=== PATIENT | female | born 1960 | race American Indian/Alaskan Native ===

== ENCOUNTER 2016-10-19 06:20 | Inpatient (IN) | payer BC, OTHER ==
[~2016-10-19] VITALS: Ht 162.6 cm; Wt 77.7 kg
[~2016-10-19 06:20] MED LIST: AMITRIPTYLINE H10 MG PO; AMITRIPTYLINE H25 MG PO; AUGMENTIN 875-1 EACH PO; CEPHALEXIN500 MG PO; DOC-Q-LAX TABL1 EACH PO; GABAPENTIN300 MG PO; HYDROCODON-ACE1 EA11 PO; IBUPROFEN600 MG PO; LIDODERM700 MG TOP; LORAZEPAM1 MG PO; LOVENOX40 MG SUB-Q; MIRALAX17 GM PO; MULTIVITAMINS1 EAC7 PO; ONDANSETRON ODT8 MG PO; PERCOCET 7.5-31 EACH PO; PROBIOTIC1 EAC1 PO; STOOL SOFTENER50 MG PO; TYLENOL EXTRA500 MG PO; ULTRAM50 MG PO; VICODIN 5-3001 EACH PO; XELODA500 MG; XELODA500 MG PO; ZOFRAN4 MG PO; [UNRECOGNIZED DRUG - REMARK]
--- NOTE | 2016-10-19 11:13 | NUR ---
ADMITTED AT 1030 FROM ER, NGT IN LEFT NARE, PATENT, DRAINING GREEN DRAINAGE. COOP WITH ASSESSMENT, DEPRESSED OVER BEING BACK AT HOSP, REASSURED. HOB 30o
--- NOTE | 2016-10-19 13:53 | NUR ---
pt c/o pain, Dr Aponte notified via phone. new orders received
--- NOTE | 2016-10-19 14:08 | NUR ---
PT C/O ABD PAIN, MEDICATED WITH MORPHINE 4MG IV.
--- NOTE | 2016-10-19 15:53 | NUR ---
PT COMFORTABLE, HOB ELEVATED AT 45o, NGT IN PLACE, PATENT, DRAINING GREEN-REDDISH DRAINAGE. PT USING CHLORASEPTIC SPRAY SHE C/O SORE THROAT, REASSURED,IVF INTACT, PATENT, UP TO BRP X1, VOIDED, BACK TO BED, HAS BEEN MEDICATED 2X WITH MORPHINE AND DILAUDID EACH X1, EFFECTIVE, VISITING WITH FAMILY AT THIS TIME. NO FURTHER C/O PAIN OR N/V. SCDS IN PLACE, CONT PULSE OX IN PLACE
--- NOTE | 2016-10-19 17:21 | NUR ---
medicated with morphne 6mg iv c/o abd pain, ngt in place, patent
--- NOTE | 2016-10-19 19:15 | NUR ---
RECEIVED REPORT FROM RN JD. PATIENT HAS NO NEEDS AT THIS TIME.
--- NOTE | 2016-10-19 20:00 | NUR ---
PT RATED PAIN AT 6/10, GAVE MORPHINE IV FOR PAIN.
--- NOTE | 2016-10-19 20:23 | NUR ---
PATIENT IS RESTING IN BED WITH AT BEDSIDE. HAS NO NEEDS AT THIS TIME.
--- NOTE | 2016-10-19 21:00 | NUR ---
PATIENT HAS 5/10 PAIN AND WOULD LIKE TO TAMRA A WHILE BEFORE GETTING MORE PAIN MEDICATION. EDUCATED THE PATIENT ON PAIN CONTROL. EDUCATION ALSO PERFORMED ON THE PURPOSE OF THE NG TUBE. PATIENT WAS THANKFUL FOR EXPLANATION. NO OTHER NEEDS AT THIS TIME.
--- NOTE | 2016-10-19 21:33 | NUR ---
PATIENT STATES PAIN LEVEL OF 5/10. PAIN MEDICATION ADMINISTERED PER EMAR. NO OTHER NEEDS AT THIS TIME.
--- NOTE | 2016-10-19 22:49 | NUR ---
PATIENT STATES THAT SHE HAS 5/10 PAIN IN ABD. DENIES NEED FOR PAIN MEDICATION. NO OTHER NEEDS AT THIS TIME.
--- NOTE | 2016-10-19 23:35 | NUR ---
pt complained of 5/10 pain in abd, gave morphine for pain. pt denies nausea. gave blankets to and set him up to sleep on the sofa. no further needs. call light in reach.
--- NOTE | 2016-10-20 02:12 | NUR ---
PATIENT REPORTS 5/10 ABD PAIN. MEDICATION ADMINISTERED PER EMAR. NO OTHER NEEDS AT THIS TIME.
--- NOTE | 2016-10-20 03:13 | NUR ---
assisted pt up to bathroom, tolerated ambulating well. pt back in bed; suction, continuous pulse oximeter, scd's, and oxygen via nc all in place. pt rates pain at 3/10, states "its okay now, its just my throat that really hurts;" gave throat lozenge. pt has no further needs. lights and tv off in room. appears asleep on the sofa. call light in reach.
--- NOTE | 2016-10-20 03:35 | NUR ---
PATIENT IN BED TYPING ON PERSONAL COMPUTER. NO NEEDS AT THIS TIME.
--- NOTE | 2016-10-20 04:26 | NUR ---
PATIENT REPORTS 4/10 ABD PAIN. PAIN MEDICATION ADMINISTERED PER EMAR. NO OTHER NEEDS AT THIS TIME.
--- NOTE | 2016-10-20 04:47 | NUR ---
PATIENT HAS BEEN SLEEPING MAJORITY OF SHIFT. PATIENT'S PAIN IN ABD HAS BEEN WELL CONTROLLED WITH IV MORPHINE. NO COMPLAINTS OF NAUSEA, VSS. NO ACUTE CHANGES FROM BEGINNING OF SHIFT ASSESSMENT. INTENTIONAL ROUNDING DONE WITH ALL PATIENT'S NEEDS MET.
--- NOTE | 2016-10-20 07:14 | NUR ---
RECIEVED REPORT FROM DAY SHIFT NURSE. PT SLEEPING IN BED. CONT PULSE OX IN PLACE. 1L O2 VIA NC IN PLACE. IVF INFUSING W/O DIFFICULTY. WHITE BOARD UPDATED.
--- NOTE | 2016-10-20 08:32 | NUR ---
PT SLEEPING. PRESENT IN ROOM. MEAL TRAY AT PT'S BEDSIDE. NC IN PLACE. CALL NOVA IN REACH.
--- NOTE | 2016-10-20 09:18 | NUR ---
PT SLEEPING IN BED. NGT IN PLACE. AT BEDSIDE. CALL NOVA IN REACH.
--- NOTE | 2016-10-20 10:00 | NUR ---
PATIENT UP TO BATHROOM. IN TO ASSIST WITH BATH. ORAL CARE DONE. LINENS CHANGED. PATIENT TO CHAIR WITH LEGS ELEVATED. CALL BUTTON IN REACH. NO OTHER NEEDS AT THIS TIME.
--- NOTE | 2016-10-20 10:00 | NUR ---
PT C/O ABDOMINAL PAIN AND THROAT PAIN. ADMINISTERED PAIN MEDICINE PER APR. PT HAS CEPACOL LOZENGE AT BEDSIDE SHE HAS BEEN SUCKING ON AND OFF. DR. SAVAGE IN TO SEE PT. NOTIFIED MD PT HAS MD JEWELL WRITING ORDERS AT THIS TIME. CALL NOVA IN REACH. REFILLED WATER PITCHER. AND MOTHER AT BEDSIDE. GAMING TABLE OPERATOR IN OBTAINING VS.
--- NOTE | 2016-10-20 10:53 | NUR ---
PT C/O OF CORCORAN. STATES HER CORCORAN HAS NOT CHANGED SINCE I LAST CHECKED. ADMINISTERED PAIN MEDS PER APR. PT UP IN CHAIR, MOTHER IN ROOM. PT DENIES FURTHER NEEDS. CALL NOVA IN REACH.
--- NOTE | 2016-10-20 11:11 | NUR ---
PASTOR CAMPBELL IN TO SEE PT. PT STATES HER CORCORAN IS "MUCH BETTER." PT DENIES NEEDS AT THIS TIME. CALL NOVA IN REACH.
--- NOTE | 2016-10-20 13:15 | NUR ---
medicated with morphine 5mg iv c/o 06/23 abd pain, ngt left nare in place, patent draining brown colored drainage to intermitent wall suction, coop
--- NOTE | 2016-10-20 13:25 | NUR ---
PT C/O ABDOMINAL PAIN. JD RN IN TO ADMINISTER PAIN MEDICATION PER APR. PT ALSO C/O SORE THROAT, LOZENGE ADMINISTERED. PT DENIES FURTHER NEEDS.
--- NOTE | 2016-10-20 13:29 | NUR ---
PT SITTING IN CHAIR, MOM AT HER SIDE. THEY SEEM TO HAVE A REALLY GOOD, STRONG RELATIONSHIP, MOM OFTEN WITH PT DURING CHEMO TREATMENTS. PT BEGAN TO SHARE HOW DIFFICULT THIS IS. I ENCOURAGED HER TO NOT LOOK TOO FAR DOWN THE ROAD, LET'S JUST DEAL WITH WHAT COMES TODAY. PT REQUESTED PRAYER, THANKED ME-SAID SHE FELT BETTER. HOPING TO NOT HAVE SURGERY, WILL CROSS THAT WHEN AND IF THE TIME COMES
[2016-10-20] MEDS ORDERED: HYDROCODON-ACE1 EAC8 PO (13:44)
--- NOTE | 2016-10-20 14:00 | NUR ---
PT AMBULATED TO BATHROOM WITH ASSIST. VOIDED. NGT LEAKING, REPOSITIONED AND SECURED TO CLEAN GOWN. PT BACK TO BED. PAIN LEVEL TOLERABLE. IVF INFUSING. SCDS IN USE. PT DENIES FURTHER NEEDS. VISITORS IN TO SEE PT. CALL NOVA IN REACH.
--- NOTE | 2016-10-20 14:59 | NUR ---
MARINA, [facility] NURSE CALLED TO CHECK ON PT. UPDATE GIVEN, STATES SHE WILL CHECK BACK TOMORROW.
--- NOTE | 2016-10-20 15:05 | NUR ---
PT RESTING IN BED. FAMILY/FRIENDS IN ROOM. PT DENIES NEEDS AT THIS TIME. CALL NOVA IN REACH.
--- NOTE | 2016-10-20 16:34 | NUR ---
FRESH ICE WATER GIVEN. IN WITH PATIENT.
--- NOTE | 2016-10-20 16:55 | NUR ---
PT C/O ABD PAIN AND CORCORAN. ADMINISTERED MORPHINE PER MAR TO TREAT ABD PAIN. PT REFUSES TYLENOL SUPP. AND IS UNABLE TO HAVE TORADOL 1844. PT STATES SHE WILL WAIT 1844 TO RECIEVE TORADOL.
--- NOTE | 2016-10-20 18:26 | NUR ---
PATIENT UP TO BATHROOM. AMBULATED IN HALLWAY. BACK IN BED WITH CALL BUTTON IN REACH. SCDS. WARM BLANKET. NO OTHER NEEDS AT THIS TIME.
--- NOTE | 2016-10-20 18:30 | NUR ---
PT STILL HAVING ABD PAIN (EPIGASTRIC AREA). STATES SHE IS UNSURE IF SHE HAS PASSED GAS. PT AMBULATING THE HALLWAYS THIS EVENING. PLAN FOR XRAY TOMORROW MORNING. POSSIBLE SBFT TOMORROW IF NO POSITIVE RESULTS TONIGHT.
--- NOTE | 2016-10-20 19:00 | NUR ---
PT C/O CORCORAN AND ABDOMINAL PAIN. ADMINSTERED PAIN MEDS PER MAR.
--- NOTE | 2016-10-20 19:27 | NUR ---
RECEIVED REPORT FROM RN. PATIENT HAS NO NEEDS AT THIS TIME.
--- NOTE | 2016-10-20 20:20 | NUR ---
evening medications given. Patient does not have any needs at this time.
--- NOTE | 2016-10-20 21:43 | NUR ---
PATIENT REPORTS 6/10 ABD PAIN. PAIN MEDICATION ADMINISTERED PER EMAR. NO OTHER NEEDS AT THIS TIME.
--- NOTE | 2016-10-20 22:03 | NUR ---
PATIENT TAKEN TO BATHROOM, GOWN CHANGED. NO OTHER NEEDS AT THIS TIME.
--- NOTE | 2016-10-20 22:48 | NUR ---
PATIENT REPORTS 5/10 PAIN IN ABD. PATIENT STATES THAT SHE WOULD LIKE TO WAIT UNTIL MIDNIGHT FOR MORE PAIN MEDICATION AND WILL CALL BEFORE THEN IF PAIN BECOME WORSE. NO OTHER NEEDS AT THIS TIME.
--- NOTE | 2016-10-21 00:16 | NUR ---
PATIENT REPORTS 5/1 ABD PAIN AND SORE THROAT. PAIN MEDICATION ADMINISTERED PER EMAR. NO OTHER NEEDS AT THIS TIME .
--- NOTE | 2016-10-21 02:21 | NUR ---
PATIENT RESTING CURRENTLY.
--- NOTE | 2016-10-21 03:18 | NUR ---
PATIENT REPORTED 5/10 ABD PAIN. PAIN MEDICATION ADMINISTERED PER EMAR. ASSESSMENT DONE. NO OTHER NEEDS AT THIS TIME.
--- NOTE | 2016-10-21 05:11 | NUR ---
PATIENT HAS BEEN SLEEPING THROUGHOUT SHIFT. VSS, NO COMPLAINTS OF NAUSEA. 5 MG OF MORPHINE ADMINISTERED FOR ABD PAIN Q2H. NO ACUTE CHANGES FROM BEGINNING OF SHIFT ASSESSMENT. INTENTIONAL ROUNDING DONE WITH ALL PATIENT'S NEEDS MET.
--- NOTE | 2016-10-21 06:05 | NUR ---
PATIENT HAD ORAL TEMPERATURE OF 101.3 AND BP OF 90/48. HAD PATIENT COUGH AND USE IS, UP TO BATHROOM. TEMPERATURE NOW 98.5 AND BP OF 119/58. WILL CONTINUE TO MONITOR. PATIENT HAS NO NEEDS AT THIS TIME.
--- NOTE | 2016-10-21 06:32 | NUR ---
RADIOLOGY HERE TO TAKE PATIENT FOR XRAY.
--- NOTE | 2016-10-21 06:36 | NUR ---
pt to imaging via wheelchair.
--- NOTE | 2016-10-21 07:26 | NUR ---
RECIEVED REPORT FROM DAY SHIFT NURSE. PT RESTING IN BED. PAIN AT A TOLERABLE LEVEL. DENIES CORCORAN. NGT IN PLACE LOW INT. SUCTION. IVF INFUSING W/O DIFFICULTY. PT DENIES NEEDS. CALL NOVA IN REACH.
--- NOTE | 2016-10-21 10:08 | NUR ---
pt c/o abd pain. pain meds administered per apr. Changed NGT canister. toileting offered. pt denies further needs. call celis in reach.
--- NOTE | 2016-10-21 11:29 | NUR ---
MED REC COMPLETE
--- NOTE | 2016-10-21 11:37 | NUR ---
PT UP TO BAHTROOM WITH SBA. GAIT STEADY. PT DENIES NEEDS.
--- NOTE | 2016-10-21 12:38 | NUR ---
PT IN BED. DR. SAVAGE IN TO REMOVE NGT. PT OFF O2-SAT AT 98%. PT DENIES NEEDS AT THIS TIME. PT AWARE IF SHE TOLERATES CLEAR LIQUIDS SHE WILL BE ADVACED TO FULL LIQUIDS. CALL NOVA IN REACH. AT BEDSIDE.
--- NOTE | 2016-10-21 13:33 | NUR ---
PT RESTING, FELT NEED TO NOT HAVE VISITORS TODAY. I HONORED HER REQUEST, AFTER SHE REQUESTED PRAYER. WILL FOLLOW NEEDED
--- NOTE | 2016-10-21 14:29 | NUR ---
PT RESTING IN BED. C/O PAIN IN ABD 07/24. PAIN MEDICATION ADMINISTERED. PT DENIES NAUSEA. PT WAS ABLE TO EAT A JELLO AFTER NGT WAS REMOVED, STATES SHE FEELS HER BOWELS WAKING UP. PT WOULD LIKE TO SHOWER SOON AND THEN SHE AGREES TO WALK. L MID LOBE SOUNDING COURSE THIS AFTERNOON. ENCOURAGED USE OF IS. PT DEMONSTRATED PROPER USE. CALL NOVA IN REACH.
--- NOTE | 2016-10-21 16:49 | NUR ---
PT STATES SHE IS HAVING PAIN IN HER ABD THAT FEELS LIKE PRESSURE. PT ALSO C/O CORCORAN- PAIN MEDICATION ADMINISTERED PER APR. PT STILL ON CLEAR LIQUID DIET, UNABLE TO ADVANCE DUE TO INCREASE IN PAIN. PT STATES SHE WILL AMBULATE AFTER HER PAIN MEDICATION "KICKS IN." CALL NOVA IN REACH. PT DENIES FURTHER NEEDS.
--- NOTE | 2016-10-21 17:34 | NUR ---
PT AMBULATING HALLS WITH . PT DENIES NEEDS.
--- NOTE | 2016-10-21 18:08 | NUR ---
PT HAD A GOOD DAY. NGT WAS REMOVED THIS MORNING. PT HAS BEEN TOLERATING CLEAR LIQUIDS W/O N/V. PT STILL HAVING ABDOMINAL PAIN ALONG WITH HEADACHES. STATES SHE IS PASSING FLATUS, NO BM SINCE TUESDAY. PLAN IS TO ADVANCE TO FULL LIQUIDS TONIGHT, IS SYMPTOMS WORSEN MAY NEED SBFT. PT STATES SHE DOES NOT WANT TO GO HOME TOMORROW.
--- NOTE | 2016-10-21 19:30 | NUR ---
IN TO MEET PT, REPORT RECV'D FROM BRITT GARNICA. PT AWAKE, WATCHING TV. PT STATES SHE HAS HAD A GOOD DAY. ASKS FOR PUDDING SINCE DIET HAS BEEN INCREASED TO FULL LIQUID. PUDDING GIVEN. IVF INFUSING. NO FURTHER NEEDS AT THIS TIME. CALL LIGHT IN REACH.
--- NOTE | 2016-10-21 20:22 | NUR ---
IN TO SEE PT, PM MEDICATIONS GIVEN. PT RATES PAIN A 6/10 IN ABDOMINAL, PRN MORPHINE GIVEN. PT UP TO BATHROOM WITH STNDBY ASSIST. TOLERATED WELL. PT GIVEN PUDDING, TOLERATED WELL. NO FURTHER NEEDS AT THIS TIME. CALL LIGHT IN REACH.
--- NOTE | 2016-10-21 22:57 | NUR ---
PT CALLED, UP TO BATHRROM WITH STANDBY ASSIST. PT STATES "MY PAIN IS GOOD RIGHT NOW." OFFERED PAIN MENDICATION, PT WOULD LIKE TO WAIT. PT WILL CALL WHEN READY. NO FURTHER NEEDS AT THIS TIME. CALL LIGHT IN REACH.
--- NOTE | 2016-10-22 02:05 | NUR ---
IN TO CHECK ON PT, PT APPEARS TO BE SLEEPING. NO APPARENT DISTRESS NOTED. LAPTOP OPEN ON LAP. RR EVEN AT 14 AND UNLABORED. IVF INFUSING. WATER AT BEDSIDE. CALL LIGHT IN REACH.
--- NOTE | 2016-10-22 04:11 | NUR ---
IN TO CHECK ON PT, PT APPEARS TO BE SLEEPING. NO APPARENT DISTRESS NOTED. IBF INFUSING. CALL LIGHT IN REACH.
--- NOTE | 2016-10-22 05:05 | NUR ---
PT HAS HAD UNEVENTFUL SHIFT, SLEPT WELL. MORPHINE GIVEN FOR EPIGASTRIC PAIN X1. PT ADVANCED TO FULL LIQUID DIET, TOLERATED PUDDING. DENIES NAUSEA. PT UP TO BATHROOM WITH STANDBY ASSIST, TOLERATES WELL. TEMP 99.3, IS ENCOURAGED. XR @ 0800. PT ON RA. IV D5LR @ 125 MLS/HR.
--- NOTE | 2016-10-22 06:19 | NUR ---
PT UP TO BATHROOM WITH ASSIST OF COMPUTER FORWARDING SYSTEM MARKUP CLERK, PT REQUESTING MEDICATION FOR PAIN. PRN MORPHINE AND TYLENOL GIVEN FOR 7/10 EPIGASTRIC PAIN. WHEN ENTERING THE ROOM PT IN BED TEARFUL, STATING "I AM JUST HAVING MYSELF A PITY DEMOCRAT." "IT HAS BEEN A LONG WEEK." PT STATES THAT SHE IS ANXIOUS ABOUT BEING DISCHARGED TOO EARLY AND RETURNING WITH UNRESOLVED SYMPTOMS. PT ASSURED THAT SHE IS PROGRESSING WELL AND ENCOURAGED TO DISCUSS HER FEELINGS WITH DR. SAVAGE. PT STATES SHE WILL DO SO. OFFERED ANY SORT OF COMFORT MEASURES I COULD PROVIDE AT THIS TIME. PT DECLINED. NO FURTHER NEEDS. CALL LIGHT IN REACH.
--- NOTE | 2016-10-22 09:25 | NUR ---
PT IS SITTING UP IN BED RESTING WITH CALL LIGHT IN REACH. PT WAS GIVEN WARM WASH CLOTH FOR FACE AND HANDS. PT SHOWERED YESTERDAY AND IS UNSURE IF SHE WILL SHOWER AGAIN TODAY. WILL RECHECK AGAIN LATER. PT DID NOT NEED ANYTHING AT THE MOMENT
--- NOTE | 2016-10-22 09:33 | NUR ---
PATIENT SITTING UP, NO COMPLAINTS OF PAIN WHILE RESTING. PLAN TO ADMINISTER PAIN MEDICATION WITH ACTIVITY. PATIENT IS AWAKE AND APPEARS CALM AND COMFORTBLE. REPORTS ACTIVE FLATUS. BOWEL TONES ACTIVE THROUGHOUT. VS STABLE. LUNG SOUNDS CLEAR.
--- NOTE | 2016-10-22 11:01 | NUR ---
THIS RN CALLED TO MED/SURG TO ACCESS PORT. PORT ASSESSED, WNL. PT REPORTS NO PROBLEMS WITH PORT. PORT ACCESSED PER PROTOCOL. BRISK BLOOD RETURN NOTED. PORT SAILINE LOCKED AND HAND OFF REPORT GIVEN TO MED/DECORATING INSTRUCTOR. MED/DECORATING INSTRUCTOR REMINDED TO CLEAN ALL HUBS FOR 15 SECONDS WITH ANY ACCESS. MED/DECORATING INSTRUCTOR ATTACHED FLUIDS TO INFUSE. PT EXPRESSES GRATITUDE AND HAS NO REQUESTS OR COMPLAINTS AT THIS TIME.
--- NOTE | 2016-10-22 11:12 | NUR ---
IV INFILTRATED TO RIGHT FA, PATIENT REQUEST NURSE FROM ONCOLOGY TO ACCESS PORT SECONDARY TO COMPLICATIONS IN PAST. PATIENT AGREED TO PLAN OF CARE. ACCESS WAS
--- NOTE | 2016-10-22 11:41 | NUR ---
DR. SAVAGE ROUNDED, NEW ORDERS FOR ABDOMINAL STUDY. DISCUSSED POC WITH JOSETTE ABRAHAM. PATIENT NOW NPO, BOWEL STUDY WILL BE STARTED AROUND 1300. DR. SAVAGE AND PATIENT AWARE OF POC.
--- NOTE | 2016-10-22 14:23 | NUR ---
PT IS SITTING UP IN BED WITH CALL LIGHT IN REACH. PT SAID SHE IS FEELING SICK TO STOMACH. PT ASKED FOR HOT WATER FOR TEA
--- NOTE | 2016-10-22 14:33 | NUR ---
PT SITTING UP IN BED, ALERT AND ORIENTED. MOM VISITING, AND I NOTICED THE NG TUBE GONE. SHE WAS SO EXCITED, AND FEELING MUCH BETTER-SHE LOOKED LIKE SHE WAS FEELING BETTER TOO. SLEPT WELL LAST NIGHT, IS TO START SOLID FOOD LATER TODAY. PT REQUESTED PRAYER, WILL FOLLOW NEEDED
--- NOTE | 2016-10-22 18:23 | NUR ---
PATIENT UP AMBULATING IN HALLS TODAY. SMALL BOWEL STUDY DONE, INSIGNIFICANT FINDINGS. PATIENT HAVE LOOSE DIARRHEA SINCE INGESTING CONTRAST FOR STUDY, DR. SAVAGE AWARE. NOW SL. NO NAUSEA WITH EATING. PATIENT APPEARS ANXIOUS OF GOING HOME TOMORROW. DISCUSSED DIARRHEA, AND ADVANCING DIET TO LOW FIBER. PROVIDED EDUCATION WITH LOW FIBER FOODS. PATIENT REQUESTED TO BE ABLE TO TAKE HER 10/[address], DR. SAVAGE APPROVED TO CHANGE HOWEVER PATIENT DOES NOT FEEL LIKE SHE NEEDS THEM OF NOW.
--- NOTE | 2016-10-22 18:29 | NUR ---
PT IS SITTING UP IN BED WITH ALL LIGHT IN REACH. PT IS VISITING WITH FAMILY. PT ASKED FOR THE SHOWER TO BE SET UP FOR LATER
--- NOTE | 2016-10-22 19:26 | NUR ---
RECIEVED REPORT FROM DAY SHIFT NURSE. PT RESTING COMFORTABLY IN BED, FAMILY AND FRIENDS PRESENT AT BEDSIDE. PT DENIES NEEDS. CALL NOVA IN REACH.
--- NOTE | 2016-10-22 19:30 | NUR ---
PT AMBULATING HALLWAY WITH SPOUSE.
--- NOTE | 2016-10-22 20:50 | NUR ---
PT RESTING IN BED. STATES SHE HAS PAIN IN HER ABD ABOUT 510. 1 TAB NORCO ADMINISTERED. ENCOURAGED PT TO USE CALL NOVA IF PAIN MEDICATION IS NOT EFFECTIVE IN 1 HOUR. PT DENIES FURTHER NEEDS. CALL NOVA IN REACH.
--- NOTE | 2016-10-22 22:00 | NUR ---
PT REQUESTING FOR ANOTHER PAIN PILL FOR 5/10 PAIN. IGNACIO GARNICA ADMINISTERED. DARIEL LAWSON DELIVERED. PT DENIES FURTHER NEEDS.
--- NOTE | 2016-10-22 23:45 | NUR ---
PT RESTING IN BED. UP TO BATHROOM INDEPENDENTLY. STATES SHE IS VOIDING FINE AND HAD ANOTHER BM AFTER SHE ATE HER HAM SANDWICH. DENIES NEEDS AT THIS TIME. CALL NOVA IN REACH.
--- NOTE | 2016-10-23 01:00 | NUR ---
PT RESTING IN BED. DENIES NEEDS AT THIS TIME. CALL NOVA IN REACH.
--- NOTE | 2016-10-23 03:10 | NUR ---
PT SLEEPING, CALL NOVA IN REACH.
--- NOTE | 2016-10-23 05:18 | NUR ---
PT HAD A GOOD NIGHT. BMS HAVE SLOWED DOWN. DID NOT RECIEVE IV PAIN MEDICATION. 2 TAB NORCO EFFECTIVE FOR PAIN. PT INDEPENDENT IN ROOM. VOIDING WELL. VS STABLE. LIKELY D/C TODAY.
--- NOTE | 2016-10-23 05:29 | NUR ---
PT SLEEPING, CALL NOVA IN REACH.
--- NOTE | 2016-10-23 06:31 | NUR ---
PT RESTING IN BED. WATER RESOURCE ENGINEERING SPECIALIST OBTAINING VS. NO C/O OF PAIN. CALL NOVA IN REACH.
--- NOTE | 2016-10-23 07:31 | NUR ---
PT CARE ASSUMED. PT RESTING IN BED, RATES PAIN AT 3/10 A HEADACHE, MEDICATED WITH TYLENOL. PT DENIES FURTHER NEEDS.
--- NOTE | 2016-10-23 09:36 | NUR ---
PT IS SHOWERING, LINENS HAVE BEEN CHANGED, PT DID NOT NEED ANYTHING ELSE AT THE MOMENT
--- NOTE | 2016-10-23 09:44 | NUR ---
PT RESTING IN BED, DENIES NEEDS
--- NOTE | 2016-10-23 12:41 | NUR ---
PT GIVEN DISCHARGE INSTRUCTIONS. REMOVED LOCK FROM PORT. PT ALERT AND ORIENTED AT DEPART.
--- NOTE | 2016-10-24 12:15 | HP ---
[facility] [address], [place] [address] Signed DATE OF ADMISSION: 10/19/16 REASON FOR ADMISSION: Incomplete bowel obstruction. HISTORY OF PRESENT ILLNESS This 55-year-old [place] woman who is a patient of Dr. Valeriy Carmona of [facility] as well as Dr. Epifanio Najera, oncologist. She initially was a patient of Dr. 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 She is familiar to me from the past having undergone a left subclavian Port-A-Cath placement in July of 2014. Her original resection was in 2012. Notably, she suffered a pelvic recurrence of her disease in May of 2014 undergoing JAKE-BS O, omentectomy. 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 She has ongoing therapy with Dr. Najera, who follows her progress quite closely. Notably, she underwent relatively recent CT scan of the abdomen showing no particular problem. She presented to the emergency room today after the onset of sudden epigastric pain beginning at approximately 5 in the morning. She had no associated vomiting, though she did have some nausea. She was admitted directly to my service from Dr. Campa in the emergency room with nasogastric tube placement, intravenous fluid administration, and parenteral pain medication. Currently, the patient still has some abdominal pain, but it is not severe. It is markedly improved by intravenous opiates. The nasogastric tube did drain a fair amount of clear bilious fluid that appears to have diminished in recent hours. The nasogastric tube has been somewhat uncomfortable for her, but she has had measures to improve that. 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 She is . She has grown children. She is accompanied by her mother. REVIEW OF SYSTEMS She denies any shortness of breath or chest pain. She has had no dysphagia or dysuria. She has had no blood per rectum or hematemesis, and no vomiting at this point. PHYSICAL EXAMINATION Electronically Signed By: KETURAH SAVAGE MD 10/24/16 1215 PATIENT NAME: MARIA ELENA CORBIN HISTORY AND PHYSICAL DATE OF : 62 PHYSICIAN: KETURAH SAVAGE MD REPORT #: [id number] REPORT IS CONFIDENTIAL AND NOT TO BE RELEASED WITHOUT AUTHORIZATION [facility] [address], [place] [address] Signed GENERAL: A pleasant [place]ian woman who does not look to be in severe distress. Her mother accompanies her at this time. NECK: Her trachea is midline. There is no thyromegaly, cervical adenopathy or supraclavicular adenopathy. CHEST: Clear. HEART: Regular without murmur. ABDOMEN: Not distended. There is mild tenderness in the epigastric area. The midline incision in the upper abdomen is slightly fibrous and firm. There is a possible hernia in the lower aspect of the incision. It is not tender. There is no sign of ascites. There is no focal mass. EXTREMITIES: Show no clubbing, cyanosis, or edema. LABORATORY DATA Her CBC showed a white count of 5.2, hematocrit 40.6, and platelets are 149,000. Her chem profile was essentially normal. Glucose 123, lactic acid 1.8, and bilirubin 0.5. Liver enzymes slightly elevated with alkaline phosphatase of 135, amylase 73, and lipase 5. Urinalysis was essentially normal. Specific gravity 1.021, white cells are 5 per high-powered field. IMAGING STUDIES I reviewed her CT scan with Dr. Mary, the Radiologist. This confirms an area of bowel obstruction. Given the clinical appearance, there may be a focal adhesion (or neoplasm obviously) accounting for it. There is an incisional hernia with bowel loop in the hernia with some air in it and slight dilation, but does not appear to be the focus of the obstruction, only a dilated loo p secondary to obstruction downstream. I see no evidence of ascites or carcinomatosis. There was a fair amount of amorphous change in the gallbladder bed. A chest x-ray that was performed appeared to be normal. Nasogastric tube was appropriately positioned. Subclavian central line (Port-A-Cath) appears to be normal. ASSESSMENT She has a small bowel obstruction, probably incomplete. 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 On the other hand, she may well have simply an adhesion-related obstruction. I have recommended nasogastric tube decompression, intravenous fluid resuscitation, parenteral pain control, and other measures in hopes that a conservative approach will allow for resolution of her problem. If necessary, operation certainly will be performed. We discussed all this in great detail. Electronically Signed By: KETURAH SAVAGE MD 10/24/16 7450 PATIENT NAME: MARIA ELENA CORBIN HISTORY AND PHYSICAL DATE OF : 62 PHYSICIAN: KETURAH SAVAGE MD REPORT #: [id number] REPORT IS CONFIDENTIAL AND NOT TO BE RELEASED WITHOUT AUTHORIZATION [address] [address] Signed I emphasized to her that adhesions are not particularly visible on an imaging study, only the effects of them (obstruction). She has considered all of this in the past. We will plan for abdominal plain x-ray in AM to assess for progress and resolution of the problem. She may require a contrast study to assess for resolution of the obstruction if clinically warranted or as previously described may require exploration and remedy of the obstructive process. MD HILARIO Xavier/Brisa /[id number] cc: MD Valeriy Maynard MD James Morrow, MD Electronically Signed By: KETURAH SAVAGE MD 10/24/16 1215 PATIENT NAME: MARIA ELENA CORBIN HISTORY AND PHYSICAL DATE OF : 62 PHYSICIAN: KETURAH SAVAGE MD REPORT #: [id number] REPORT IS CONFIDENTIAL AND NOT TO BE RELEASED WITHOUT AUTHORIZATION
--- NOTE | 2016-10-26 15:15 | DS ---
[facility] [address] [facility] [place], [place] [address] Signed DATE OF DISCHARGE: 10/23/16 REASON FOR ADMISSION This 54-year-old [place]i woman is a patient of Dr. Carmona, [facility] as well as Dr. Epifanio Najera, Oncologist. She initially was a patient Dr. 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 She was subsequently referred to [facility] and at some point underwent right hepatic lobectomy, this was in 2012. I placed a left subclavian Port-A-Cath device in July of 2014. 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 She has recently undergone a CT scan of the abdomen showing no particular problem. She presented to the emergency room on the day of admission with onset of sudden epigastric pain without associated vomiting, though she did have some nausea. She was evaluated by Dr. Campa in the emergency room and found to have small-bowel obstruction on CT scan related to probable adhesions in the car-od-cgrot abdomen on the right side. She had no evidence of carcinomatosis or obvious peritoneal metastases though that has been a consideration of course. She was admitted for further evaluation and care. PHYSICAL EXAMINATION GENERAL: A pleasant [place]i woman who did not look to be in severe distress. HEENT: Trachea was midline. CHEST: Clear. HEART: Regular without murmur. ABDOMEN: Nondistended and only mild tenderness in the epigastric area. The midline incision in the upper abdomen is slightly fibrous and firm. There was a possible incisional hernia in the lower aspect of the incision. CT scan confirmed this as well, but it was not the source of obstruction. LABORATORY DATA White count was 5.2, hematocrit 40.6, platelets 149,000, lactic acid 1.8. Liver enzymes showed slightly elevated alkaline phosphatase of 135, amylase 73, lipase 5. Urinalysis normal. CT scan showed an area of bowel obstruction likely related to adhesions, though neoplasm of course could have been an etiology for this. There was an incisional hernia of the bowel loop, but without this being the source of obstruction in any way. HOSPITAL COURSE She was admitted, given fluid resuscitation, and parenteral pain medication as needed. She underwent abdominal plain x-ray, which showed some improvement of the air pattern in her bowel lo ops. She had no evidence of bowel function, specifically no flatus or bowel movement. She did not have severe tenderness, only mild distention and tenderness. Continued observation was maintained where she had clinical improvement. By 10/21/2016, Electronically Signed By: KETURAH SAVAGE MD 10/26/16 1515 PATIENT NAME: MARIA ELENA CORBIN DISCHARGE SUMMARY DATE OF : 62 PHYSICIAN: KETURAH SAVAGE MD REPORT #: [id number] REPORT IS CONFIDENTIAL AND NOT TO BE RELEASED WITHOUT AUTHORIZATION [address] [address] Signed she had resolution of the bowel obstruction based on abdominal x-ray. She still had no flatus or bowel movement, however. She was begun on clear liquid diet and advanced to full liquid diet, which she tolerated. The patient was reticent about possible recurrence of her symptoms. On that basis on October 22, 2016, she underwent a 50:50 mix of barium and Gastrografin for small-bowel follow-through. This showed absolutely no impediment to flow, no evidence of intraluminal neoplasm or obstruction in any way. She was advanced to regular diet, which she tolerated well. By day of discharge, she is ambulating well and tolerating a solid diet. Has no incisional pain. No nausea, vomiting, or distention. She does have the incisional hernia though not clinically evident at this time, consideration for repair of the hernia would be made in the near future. The patient will be discharged with instructions to avoid fibrous food bolus (popcorn bingeing, peanut, etc.) and maintaining a relatively low-fiber diet for a week or so and then advance to a more regular diet. She is at increased risk of recurrent obstruction symptoms of course. It is my belief that her obstruction was related to adhesions rather than neoplasm though she is at risk of either. FOLLOWUP PLAN She is to return to see me in approximately a month. We will re-evaluate her situation and further consideration of possible incisional hernia repair. DISCHARGE MEDICATIONS She will return to her usual medications, which includes plain Tylenol 500 mg p.o. q.6 hours p.r.n. pain, stool softener DSS 50 mg p.o. b.i.d. She will resume [place] 1-2 p.o. q.4 hours p.r.n. pain (to take only when absolutely necessary). Probiotic Lactobacillus Acidophilus 2 caps p.o. daily and Lorazepam 1 mg p.o. p.r.n. nausea, anxiety, or restlessness. This can be taken every 4 hours as needed. She will have no new medications at discharge. DISCHARGE DIAGNOSES Small bowel obstruction likely related to adhesions, resolved with aggressive conservative management. History of cholangiocarcinoma of the gallbladder status post cholecystectomy (Brandon Garcia) in 2012 and subsequent right hepatectomy. Metastatic disease of cholangiocarcinoma to ovary status post total abdominal hysterectomy-bilateral salpingo oophorectomy omentectomy. Port-A-Cath (Dr. Keturah Savage). Electronically Signed By: KETURAH SAVAGE MD 10/26/16 0655 PATIENT NAME: MARIA ELENA CORBIN DISCHARGE SUMMARY DATE OF : 62 PHYSICIAN: KETURAH SAVAGE MD REPORT #: [id number] REPORT IS CONFIDENTIAL AND NOT TO BE RELEASED WITHOUT AUTHORIZATION [address] [address] Signed Keturah Savage MD JM/Modl /[id number] cc: MD Epifanio Dela Cruz MD Andrew Bower, MD Electronically Signed By: KETURAH SAVAGE MD 10/26/16 1515 PATIENT NAME: MARIA ELENA CORBIN DISCHARGE SUMMARY DATE OF : 62 PHYSICIAN: KETURAH SAVAGE MD REPORT #: [id number] REPORT IS CONFIDENTIAL AND NOT TO BE RELEASED WITHOUT AUTHORIZATION
[2017-02-25] MEDS ORDERED: MIRALAX17 GM PO (11:02)
== END 2016-10-23 12:31 | disposition home or self-care (01) | DRG 390 ==
LOC: ED 06:20 → MS 09:51
PROVIDERS: ADMIT Surgery
PROC: 0D9670Z Drainage of Stomach with Drainage Device, Via Natural or Artificial Opening (ICD-10-PCS; principal; 2016-10-19)
DX: K56.5 Intestinal adhesions [bands] with obstruction (postinfection) (principal); K43.2 Incisional hernia without obstruction or gangrene; Z85.05 Personal history of malignant neoplasm of liver; Z90.710 Acquired absence of both cervix and uterus; Z90.722 Acquired absence of ovaries, bilateral; Z85.43 Personal history of malignant neoplasm of ovary
CPT/HCPCS: 36415; 71010; 74000; 74020; 74177; 74250; 80048; 80053; 81001; 82150; 83605; 83690; 85025; 94760; 94762; 96361; 96374; 96375; 99285; J1170; J1644; J1885; J2270; J2405; J7030; J7120; Q9967

== ENCOUNTER 2017-01-31 09:01 | Day surgery (SDC) | payer BC, OTHER ==
[~2017-01-31] VITALS: Ht 162.6 cm; Wt 78.0 kg
[~2017-01-31 09:01] MED LIST changes: +HYDROCODON-ACE1 EAC8 PO
--- NOTE | 2017-01-31 13:23 | NUR ---
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
--- NOTE | 2017-01-31 13:33 | NUR ---
PT SITTING IN BED, WITH HER MOTHER PAT BY HER SIDE. PT WAS RATHER SUBDUED, AND BEGAN TO RELATE TO ME THAT HER CANCER HAD RETURNED. PT HAS FOUGHT LONG AND HARD, AND FELT SHE HAD TURNED A CORNER. LET HER VENT, REMINDED HER THAT GOD WAS WITH HER-SHE ACKNOWLEDGED. PT REQUESTED PRAYER, PT AND HER HAVE JUST ORDERED A NEW HOME, SHE WAS EXCITED ABOUT IT. WILL FOLLOW NEEDED
--- NOTE | 2017-01-31 22:26 | EKG ---
[facility] [address] [facility] [place] [address] Signed Normal sinus rhythm Normal ECG No previous ECGs available Confirmed by RADHA COWART MD ([id number]) on 01/31/2017 10:25:43 PM Electronically Signed By: RADHA COWART MD 01/31/17 2226 PATIENT NAME: MARIA ELENA CORBIN Electrocardiogram DATE OF : 62 PHYSICIAN: RADHA COWART MD REPORT #: [id number] REPORT IS CONFIDENTIAL AND NOT TO BE RELEASED WITHOUT AUTHORIZATION
--- NOTE | 2017-02-21 08:47 | OR ---
[facility] [address] [place], [place] [address] Signed DATE OF OPERATION: 01/31/2017 SURGEON: Chang Feliz MD PREOPERATIVE DIAGNOSES: 1. New-onset left hydronephrosis, likely due to distal ureteral obstruction. 2. Metastatic cholangiocarcinoma. POSTOPERATIVE DIAGNOSES: 1. New-onset left hydronephrosis, likely due to distal ureteral obstruction. 2. Metastatic cholangiocarcinoma. NAMES OF PROCEDURES: 1. Diagnostic cystoscopy with left retrograde pyelogram. 2. Insertion of left indwelling ureteral stent. ANESTHESIA: MAC. ESTIMATED BLOOD LOSS: None. COMPLICATIONS: None. SPECIMENS: None. INDICATIONS FOR PROCEDURE: Ms. Corbin is a very pleasant 56-year-old female with an unfortunate history of diffusely metastatic cholangiocarcinoma. Since her diagnosis a few years ago, she has undergone multiple surgeries, including liver resection as well as hysterectomy with bilateral oophorectomy in an attempt to keep her disease at bay. She has also undergone radiation as well as multiple cycles of chemotherapy. She was just notified last week that her cancer has returned and is present again in her liver and lymph nodes. She underwent a recent CT scan, which confirmed the presence of recurrence of her disease, but also revealed the presence of new-onset left hydroureteronephrosis that was not present in September 2016. She denies any significant left-sided flank pain, gross hematuria, or dysuria. However, her renal function has recently become compromised as her most recent GFR was around 55 or so or as her normal GFR is reportedly within normal Electronically Signed By: CHANG FELIZ MD 02/21/17 0847 PATIENT NAME: MARIA ELENA CORBIN OPERATIVE REPORT DATE OF : 62 PHYSICIAN: CHANG FELIZ MD REPORT #: [id number] REPORT IS CONFIDENTIAL AND NOT TO BE RELEASED WITHOUT AUTHORIZATION [facility] [address] [place], [place] [address] Signed limits. She presents today to undergo cystoscopy with insertion of a left ureteral stent for definitive decompression of her left collecting system. OPERATIVE FINDINGS: 1. On cystoscopy, there was no evidence of any suspicious masses, lesions, or stones within the bladder. Bilateral ureteral orifices are in their normal anatomic location. The right ureteral orifice is noted to efflux clear urine, more so than on the left side. 2. Left retrograde pyelogram was performed, which revealed hydroureteronephrosis down to the level of the distal left ureter, near the pelvic brim. I was able to easily pass the wire up through this area of obstruction distally as well as through the proximal aspect of the ureter, which had developed a short curl just prior to entrance into the left kidney. 3. A 6 x 24 cm contour double-J ureteral stent was inserted into the left ureter under direct visualization without difficulty. DESCRIPTION OF PROCEDURE: After informed consent was obtained, the patient was taken back to the operating room. [facility] to [facility] operating room table, where MAC anesthesia was induced. She was placed in the dorsal lithotomy position and the genitalia prepped and draped in standard sterile fashion. Using a 30-degree lens on a 22-Syriac introducer, rigid cystoscope was inserted through her urethra and into her bladder under direct visualization. Plain endoscopic views of the bladder were then obtained, including the lateral acevedo, floor, dome and trigone areas. Of note, the patient's urethra was dilated slightly from 16-Syriac to 24-Syriac prior to insertion of the cystoscope. Once the scope was within the bladder and after a diagnostic cystoscopy was performed, a cone-tipped catheter was advanced to the level of the left ureteral orifice and a left retrograde pyelogram was performed. Please see above findings. I removed the cone-tipped catheter and replaced with the Sensor wire. I was able to pass a Sensor wire up into the left collecting system without meeting any significant resistance. Over the wire, a 6 x 24 cm contour double-J ureteral stent was passed into the left collecting system under direct visualization without difficulty. Once I was able to confirm adequate placement of the stent, the Sensor wire was pulled and an adequate proximal coil was seen within the left renal pelvis along with an adequate distal coil within the bladder. The patient's bladder was then drained and the cystoscope was removed. The procedure was then terminated. The patient tolerated the procedure well without any complications. She will now be transferred to the postanesthesia care unit in stable condition. DISPOSITION: Ms. Corbin will be discharged to home today in stable condition when she awakens from anesthesia. I discussed the details of the procedure today with her mother and answered Electronically Signed By: CHANG FELIZ MD 02/21/17 0847 PATIENT NAME: MARIA ELENA CORBIN OPERATIVE REPORT DATE OF : 62 PHYSICIAN: CHANG FELIZ MD REPORT #: [id number] REPORT IS CONFIDENTIAL AND NOT TO BE RELEASED WITHOUT AUTHORIZATION [address] [address] Signed all of her questions. She was sent home today with Percocet 5/325, dispense #20 as needed for pain along with Cipro for a total of five days. She will be scheduled to return to clinic in approximately three months with a urine check. At that time, we will go ahead and discuss plans for her next routine stent exchange, which will happen in anywhere from 4 to 6 months from now. MD POONAM Clinton/JE /[id number] Electronically Signed By: CHANG FELIZ MD 02/21/17 0847 PATIENT NAME: MARIA ELENA CORBIN OPERATIVE REPORT DATE OF : 62 PHYSICIAN: CHANG FELIZ MD REPORT #: [id number] REPORT IS CONFIDENTIAL AND NOT TO BE RELEASED WITHOUT AUTHORIZATION
[2017-02-25] MEDS ORDERED: MIRALAX17 GM PO (11:02)
== END 2017-01-31 14:40 | disposition home or self-care (01) ==
LOC: DS 09:01
PROVIDERS: Urology
PROC: 0T9780Z Drainage of Left Ureter with Drainage Device, Via Natural or Artificial Opening Endoscopic (ICD-10-PCS; principal; 2017-01-31 13:30)
PROC: BT1FYZZ Fluoroscopy of Left Kidney, Ureter and Bladder using Other Contrast (ICD-10-PCS; 2017-01-31 13:30)
DX: N13.30 Unspecified hydronephrosis (principal); M19.90 Unspecified osteoarthritis, unspecified site; Z98.51 Tubal ligation status; Z90.89 Acquired absence of other organs; Z88.2 Allergy status to sulfonamides; Z98.890 Other specified postprocedural states; C78.89 Secondary malignant neoplasm of other digestive organs; Z79.899 Other long term (current) drug therapy
CPT/HCPCS: 00910; 74420; 90674; 93005; 93010; C2617; G0008; J0696; J1170; J2250; J2405; J2704; Q9967

== ENCOUNTER 2017-05-06 11:31 | Day surgery (SDC) | payer BC, OTHER ==
[~2017-05-06] VITALS: Ht 162.6 cm; Wt 71.7 kg
[~2017-05-06 11:31] MED LIST changes: +DULCOLAX5 MG PO; +OXYCODONE HCL E20 MG PO
[2017-05-06] MEDS ORDERED: OXYCONTIN20 MG PO (11:57)
--- NOTE | 2017-05-06 14:15 | NUR ---
05/06/17 1415 Sonia Hamilton 1403 PATIENT ARRIVES TO PACU SLEEPING, AWAKENS WITH VERBAL STIMULI, THEN BACK TO SLEEP. RESP EVEN AND UNLABORED. OXYMAS AT 4 LITERS. 1410 PATIENT SLEEPING. AWAKENS WITH VERBAL STIMULI, RATES PAIN 5/10, THEN BACK TO SLEEP. RESP EVEN AND UNLABORED, MASK OFF. 98% ON ROOM AIR. 1415 PATIENT SLEEPING. ROOM AIR 98%.
--- NOTE | 2017-05-09 09:28 | OR ---
[facility] [address] [facility] [place] [address] Signed DATE OF OPERATION: 05/06/2017 SURGEON: Chang Feliz MD PREOPERATIVE DIAGNOSES: 1. New-onset hydronephrosis in the setting of pelvic lymphadenopathy due to metastatic gallbladder cancer. 2. Worsening renal insufficiency, despite adequate stent placement. POSTOPERATIVE DIAGNOSES: 1. New-onset hydronephrosis in the setting of pelvic lymphadenopathy due to metastatic gallbladder cancer. 2. Worsening renal insufficiency, despite adequate stent placement. NAMES OF PROCEDURES: Diagnostic cystoscopy with left ureteral stent exchange. ANESTHESIA: General. ESTIMATED BLOOD LOSS: None. COMPLICATIONS: None. SPECIMENS: None. INDICATIONS FOR PROCEDURE: Aura is a very pleasant 56-year-old female with a history of metastatic gallbladder cancer, who initially presented to my clinic in late 2016, after being found to have new-onset left hydronephrosis that was incidentally noted on a routine staging CT scan. She quickly underwent cystoscopy with left ureteral stent insertion in January 2017, with anticipation that this would improve her hydronephrosis and her new-onset renal insufficiency. She recently underwent a repeat imaging that revealed an indwelling ureteral stent on the left side that was in good position. However, the hydronephrosis had not resolved. She was also found to have a continued drop in her GFR down to around 40 as well as an increase in her creatinine to about 1.3. After a long discussion with the patient, she decided to attempt an upgrade in the size of her ureteral stent to see Electronically Signed By: CHANG FELIZ MD 05/09/17 0928 PATIENT NAME: AURA CORBIN OPERATIVE REPORT DATE OF : 62 REPORT #: [id number] PHYSICIAN: CHANG FELIZ MD PCP: ASHLEY BAY MD REPORT IS CONFIDENTIAL AND NOT TO BE RELEASED WITHOUT AUTHORIZATION [facility] [address] [place] [id number] Signed if this would improve drainage of her left kidney. The most recent CT scan does reveal pelvic lymphadenopathy on that side, which is likely producing extrinsic compression upon the distal left ureter. After a review of the risks and benefits of procedure, the patient presents today to undergo cystoscopy with left ureteral stent exchange. OPERATIVE FINDINGS: 1. On cystoscopy, there was no evidence of any suspicious masses, lesions, or stones. She had an indwelling left ureteral stent, with no evidence of calcification. 2. Once the indwelling stent was removed, a new 7 x 24 cm contour double-J ureteral stent was inserted into the patient's left ureter under direct visualization without difficulty. DESCRIPTION OF PROCEDURE: After informed consent was obtained, the patient was taken back to the operating room. She was transferred from the [facility] to the operating room table, where general anesthesia was induced. She was placed in the dorsal lithotomy position and her genitalia prepped and draped in a standard sterile fashion. Using a 30-degree lens on a 21-Bruneian introducer, rigid cystoscope was inserted through the urethra and into her bladder under direct visualization. Panendoscopic views of the bladder were then obtained. Please see above findings. Attention was turned to the indwelling left ureteral stent. Using graspers, the stent was removed to the level of the urethral meatus. A Sensor wire was then inserted into the lumen of the stent and up into the left collecting system. The indwelling stent was removed, fully intact. Fluoroscopy confirmed adequate placement of the Sensor wire. Over the Sensor wire, a 7 x 24 cm contour double-J ureteral stent was inserted into the patient's left ureter under direct visualization without difficulty. Once the wire was pulled, I could appreciate an adequate proximal coil within the left renal pelvis along with an adequate distal coil in the bladder. The patient's bladder was then drained and the cystoscope was removed. The procedure was then terminated. The patient tolerated the procedure well without any complication. She will now be transferred to the Postanesthesia Care Unit in stable condition. DISPOSITION: I discussed the results of today's procedure with Aura's mother and answered all of her questions. She will be sent home today with Cipro 250 mg p.o. b.i.d. for a total of five days along with Percocet 5/325, dispense #30 as needed for pain. Her blood work will be checked in approximately one week by Dr. Najera. I have also scheduled for her to return to clinic in approximately one month with another followup BMP to see if her renal function improves with the indwelling left ureteral stent. If her renal function fails to improve, we will consider removal of the stent at that time. Electronically Signed By: CHANG FELIZ MD 05/09/17 0928 PATIENT NAME: AURA CORBNI OPERATIVE REPORT DATE OF : 62 REPORT #: [id number] PHYSICIAN: CHANG FELIZ MD PCP: ASHLEY BAY MD REPORT IS CONFIDENTIAL AND NOT TO BE RELEASED WITHOUT AUTHORIZATION [address] [address] Signed Chang Feliz MD AR/MODL /[id number] Copies: ~ Electronically Signed By: CHANG FELIZ MD 05/09/17 0928 PATIENT NAME: AURA CORBIN OPERATIVE REPORT DATE OF : 62 REPORT #: [id number] PHYSICIAN: CHANG FELIZ MD PCP: ASHLEY BAY MD REPORT IS CONFIDENTIAL AND NOT TO BE RELEASED WITHOUT AUTHORIZATION
[2017-06-17] MEDS ORDERED: MORPHINE IV (09:03)
[2017-06-17] MEDS ORDERED: DEXAMETHASONE4 MG PO (09:04)
[2017-07-01] MEDS ORDERED: DILAUDID 22 MG/1 M1 (10:21)
[2017-07-01] MEDS ORDERED: FENTANYL1 EAC3 TD (10:23)
[2017-07-22] MEDS ORDERED: DILAUDID2 MG PO (09:47)
== END 2017-05-06 15:00 | disposition home or self-care (01) ==
LOC: DS 11:31
PROVIDERS: Urology
PROC: 0TP98DZ Removal of Intraluminal Device from Ureter, Via Natural or Artificial Opening Endoscopic (ICD-10-PCS; 2017-05-06)
PROC: 0T778DZ Dilation of Left Ureter with Intraluminal Device, Via Natural or Artificial Opening Endoscopic (ICD-10-PCS; principal; 2017-05-06 13:00)
DX: N13.1 Hydronephrosis with ureteral stricture, not elsewhere classified (principal); R59.0 Localized enlarged lymph nodes; N28.9 Disorder of kidney and ureter, unspecified; M19.90 Unspecified osteoarthritis, unspecified site; M54.2 Cervicalgia; M54.9 Dorsalgia, unspecified; R10.9 Unspecified abdominal pain; K59.00 Constipation, unspecified; Z85.09 Personal history of malignant neoplasm of other digestive organs; Z92.21 Personal history of antineoplastic chemotherapy; Z98.51 Tubal ligation status; Z98.890 Other specified postprocedural states; Z90.89 Acquired absence of other organs; Z90.49 Acquired absence of other specified parts of digestive tract; Z87.891 Personal history of nicotine dependence; Z88.2 Allergy status to sulfonamides; Z79.891 Long term (current) use of opiate analgesic; Z79.899 Other long term (current) drug therapy; Z92.3 Personal history of irradiation
CPT/HCPCS: 00910; 76000; C2617; J0696; J2704; J2765; J3010; J7120

== ENCOUNTER 2017-05-19 10:58 | Emergency (ER) | payer BC, OTHER ==
[~2017-05-19] VITALS: Ht 160 cm; Wt 68.1 kg
--- OUTSIDE RECORDS SUMMARY | ~2017-05-19 | XMS | Encounter Summary ---
Demographics + + + | Address | [address] | | | [place] [address] | + + + | Home Phone [...] | Author | [facility] | | | and [place] | + + + | Organization | [facility] | | | and [place] | + + + | Address | Unknown | + + + | Phone | Unavailable | + + + Support + + + + + | Name | Relationship | Address | Phone | + + + + + | Poncho Oquendo | ECON | [address] | | | | | [place] | | | | | [address] | | + + + + + | Marta Upton | ECON | [place] | | | | | [address] | | + + + + + Care Team Providers + +------+ + | Care Assembler Dc Field Ring Name | Role | Phone | + +------+ + | Valeriy Carmona DO | PCP | | + +------+ + Encounter Details +--------+ + + + + | Date | Type | Department | Care Team | Description | +--------+ + + + + | 05/13/ | Orders Only | [facility] | Marcelina Johnson, | | | 2017 | | [facility] | RN | | | | | INFUSION [address] | | | | | | [place], | | | | | | [place] [address] | | | | | | [phone] | | | +--------+ + + + [...] + + + + | 05/20/ | Appointment | Oncology | Vladimir Robles, | | | 2017 | | | MD | | +--------+ + + + + | 05/20/ | Hospital | Infusion Therapy | Vladimir Robles, | | | 2017 | Encounter | | MD | | +--------+ + + + + | 05/27/ | Appointment | Oncology | Vladimir Robles, | | | 2017 | | | MD | | +--------+ + + + + | 05/27/ | Appointment | Infusion Therapy | Vladimir Robles, | | | 2018 | | | MD | | +--------+ + + + + as of this encounter Visit Diagnoses Not on filein this encounter"
--- OUTSIDE RECORDS SUMMARY | ~2017-05-19 | XMS | Encounter Summary ---
Demographics + + + | Address | [address] | | | [place] [address] | + + + | Home Phone [...] | Author | [facility] | | | and [place] | + + + | Organization | [facility] | | | and [place] | + + + | Address | Unknown | + + + | Phone | Unavailable | + + + Support + + + + + | Name | Relationship | Address | Phone | + + + + + | Poncho Oquendo | ECON | [address] | | | | | [place] | | | | | [address] | | + + + + + | Marta Upton | ECON | [place] | | | | | [address] | | + + + + + Care Team Providers + +------+ + | Care Monkey Trainer Name | Role | Phone | + [...] [address] [place] | | | | | [place], | [place] [address] | | | | | [place] [address] | [phone] | | | | | [phone] | | | +--------+ + + + [...]
--- OUTSIDE RECORDS SUMMARY | ~2017-05-19 | XMS | Encounter Summary ---
Demographics + + + | Address | [address] | | | [place] [address] | + + + | Home Phone [...] | Author | [facility] | | | and Eduardo[place] | + + + | Organization | [facility] | | | and Eduardoana | + + + | Address | Unknown | + + + | Phone | Unavailable | + + + Support + + + + + | Name | Relationship | Address | Phone | + + + + + | Poncho Oquendo | ECON | [address] | | | | | [place] | | | | | [address] | | + + + + + | Marta Upton | ECON | [place] | | | | | [address] | | + + + + + Care Team Providers + +------+ + | Care Cartridge Loading Operator Name | Role | Phone | + +------+ + PCP | Unavailable | + +------+ + Reason for Visit Service/Procedure (Routine) + +--------+ + + + + | Status | Reason | Specialty | Diagnoses / | Referred By | Referred To | | | | | Procedures | Contact | Contact | + +--------+ + + + + | Authorized | | Infusion | Diagnoses | | [facility] | | | | Therapy | Malignant | Reinaldo, | Infusion 401 | | | | | 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, | W Alva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 | MD [address] | [place], | | | | | (HCC) | [address] | [place] [address] | | | | | Procedures | [place], | Phone: | | | | | [place] | [place] [address] | [phone] | | | | | DIPHENHYDRAM | Phone: | Fax: | | | | | INE HCL | [phone] | [phone] | | | | | INJECTIO, 50 | Fax: | | | | | | MG MA | [phone] | | | | | | ONDANSETRON | | | | | | | HCL | | | | | | | INJECTION, 1 | | | | | | | MG MA | | | | | | | DEXAMETHASON | | | | | | | E SODIUM | | | | | | | PHOS, 1 MG | | | | | | | MA | | | | | | | FOSAPREPITAN | | | | | | | T INJECTION, | | | | | | | 1 MG MA | | | | | | | LORAZEPAM | | | | | | | INJECTION, 2 | | | | | | | MG MA | | | | | | | GEMCITABINE | | | | | | | HCL | | | | | | | INJECTION, | | | | | | | 200 MG MA | | | | | | | CISPLATIN 10 | | | | | | | MG | | | | | | | INJECTION | | | | | | | MA | | | | | | | METHYLPREDNI | | | | | | | SOLONE | | | | | | | INJECTION, | | | | | | | 125 MG MA | | | | | | | ADRENALIN | | | | | | | EPINEPHRINE | | | | | | | INJECT, .1 | | | | | | | MG MA | | | | | | | FILGASTIM | | | | | | | (ZARXIO) 300 | | | | | | | MCG/0.5ML | | | | | | | SOSY, PER 1 | | | | | | | MCG MA | | | | | | | INJECTION, | | | | | | | FAMOTIDINE, | | | | | | | 20 MG MA | | | | | | | NORMAL | | | | | | | SALINE | | | | | | | SOLUTION | | | | | | | INFUS, 500 | | | | | | | ML MA | | | | | | | NORMAL | | | | | | | SALINE | | | | | | | SOLUTION | | | | | | | INFUS, 250 | | | | | | | ML MA | | | | | | | STERILE | | | | | | | WATER/SALINE | | | | | | | , 10 ML MA | | | | | | | CHEMOTHER, | | | | | | | IV PUSH,EA | | | | | | | ADD DRUG MA | | | | | | | CHEMOTHER, | | | | | | | IV INFUSION, | | | | | | | 1 HR MA | | | | | | | CHEMOTHER, | | | | | | | IV INFUSION, | | | | | | | EA HR MA | | | | | | | CHEMOTHER,NO | | | | | | | N-HORMONE | | | | | | | ANTI-NEOPL, | | | | | | | SUB-Q/IM MA | | | | | | | CHEMOTHER | | | | | | | HORMON | | | | | | | ANTINEOPL | | | | | | | SUB-Q/IM | | | + +--------+ + + + + Encounter Details +--------+ + + + + | Date | Type | Department | Care Team | Description | +--------+ + + + + | 05/20/ | Hospital | [facility] | Vladimir Robles, | | | 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 | MED CTR CHEMO | MD | | | | | INFUSION [address] | | | | | | [place], | | | | | | [place] [address] | | | | | | [phone] | | | +--------+ + + + [...]
--- OUTSIDE RECORDS SUMMARY | ~2017-05-19 | XMS | Encounter Summary ---
Demographics + + + | Address | [address] | | | [place] [address] | + + + | Home Phone | | + + + | Preferred Language | Unknown | + + + | Marital Status | Single | + + + | Synagogue Affiliation | Unknown | + + + | Race | Unknown | + + + | Ethnic Group | Unknown | + + + Author + + + | Author | [facility] | | | and [place]ardo[place] | + + + | Organization | [facility] | | | and [place]ardo[place] | + + + | Address | Unknown | + + + | Phone | Unavailable | + + + Support + + + + + | Name | Relationship | Address | Phone | + + + + + | Poncho Oquendo | ECON | [address] | | | | | [place] | | | | | [address] | | + + + + + | Marta Upton | ECON | [place] | | | | | [address] | | + + + + + Care Team Providers + +------+ + | Care Rebar Bender Name | Role | Phone | + [...] | ONCOLOGY CLINIC [address] | [facility] | | | | | [address] [facility] | [place] [address] | | | | | [place] [address] | [phone] | | | | | [phone] | | | +--------+ + + + [...]
--- OUTSIDE RECORDS SUMMARY | ~2017-05-19 | XMS | Clinical Summary ---
Demographics + + + | Address | [address] | | | [place] [address] | + + + | Home Phone [...] Team Providers + +------+ + | Care Row Boss Hoeing Name | Role | Phone | + +------+ + | Valeriy Carmona MD | PP | Unavailable | + +------+ + Source Comments GWEN is fully live on both EpicCare Ambulatory and EpicCare InPatient.Replaced By [facility] Allergies + + + + + [...]
--- OUTSIDE RECORDS SUMMARY | ~2017-05-19 | XMS | Clinical Summary ---
Demographics + + + | Address | [address] | | | [place] [address] | + + + | Home Phone [...] | Author | [facility] | | | and Eduardoana | + + + | Organization | [facility] | | | and Eduardo[place] | + + + | Address | Unknown | + + + | Phone | Unavailable | + + + Support + + + + + | Name | Relationship | Address | Phone | + + + + + | Poncho Oquendo | ECON | [address] | | | | | [place] | | | | | [address] | | + + + + + | Marta Corbin | ECON | [place] | | | | | [address] | | + + + + + Care Team Providers + +------+ + | Care Food Processing Chemist Name | Role | Phone | [...] | | | + + +-------+---------+------+------+-------+ | acetaminophen | Take 500 mg by mouth | | | | | Activ | | (TYLENOL) 500 mg | every 4 hours as | | | | | e | | tablet | needed for | | | | | | | | Headaches. | | | | | | + + +-------+---------+------+------+-------+ | Probiotic Product | Take by mouth | | | | | Activ | | (PROBIOTIC DAILY PO) | Daily. | | | | | e | + + +-------+---------+------+------+-------+ | LORazepam (ATIVAN) | take 1 tablet [...] | | | + + +-------+---------+------+------+-------+ | | Take 1 tablet by | | | | | Activ | | HYDROcodone-acetamin | mouth every 6 hours | | | | | e | | ophen (NORCO) 10-325 | as needed for Pain. | | | | | | | mg per tablet | | | | | | | + + +-------+---------+------+------+-------+ | docusate sodium | Take 100 mg by mouth | | | | | Activ | | (STOOL SOFTENER) 100 | 2 times daily. | | | | | e | | mg capsule | | | | | | | + + +-------+---------+------+------+-------+ | ciprofloxacin | take 1 tablet by | | 0 | 01/14 | | Activ | | (CIPRO) 500 mg | mouth twice a day | | | 10/03 | | e | | tablet | | | | 17 | | | + + +-------+---------+------+------+-------+ Active [...] | | written pain management agreement/narcotic contract. [[place] | | Health and Services Provider Handbook [...] Garcia on | | 03/29/2012. Pathological specimen [id number] was analyzed by | | Liu Bowers M.D. of [facility] and was notable | | for a poorly-differentiated adenocarcinoma of the gallbladder. | | Liver biopsy was performed at the same time of the procedure and | | demonstrated portal inflammation.2. On 04/26/2012, she | | successfully underwent a R0 resection by Dr. Tai Stanton, of | | the [facility]. Pathological specimen | | [id number] was notable for the absence of any residual | | carcinoma within the gallbladder bed; however, 2/8 regional lymph | | nodes were positive for regionally metastatic disease.3. | | Consultation with Dr. Elva Grey of the [facility] | | [facility] on 05/17/2012, which returned the | [...] Dr. Miguel Henderson of the | | [facility]. 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 However, 122 of the remaining genes | | analyzed in the assay were all wild type.7. Repeat consultation | | with Dr. Elva Grey of the [facility] | | on 06/26/2014 returned the recommendation for additional | | chemotherapy with cisplatin at 75 mg/m2 on day 1 with gemcitabine | | at 1250 mg/m2 on day-1 and day-8 of the every 21-day cycle for | | 6-8 cycles. This was followed by a second opinion by Dr. Quiroz | | Jeovany of the [facility] who recommended | | chemotherapy with cisplatin [...] recommendations of Dr. Richie Thayer of the [facility] | | [place] with gemcitabine at 1000 mg/m2 on day-1 [...] 09/16/2014 at the [facility] in [place], | | [place], demonstrated stable postoperative changes involving | | [...] chest, abdomen, and pelvis at the [facility] in [place], [place], | | demonstrated stable postoperative changes [...] abdomen, and | | pelvis at the [facility] in [place], [place], on | | 06/23/2015 demonstrating postoperative changes in the right upper | | quadrant. No evidence of recurrence or any evidence of | | metastatic disease.15. Repeat CT scan of the chest, abdomen, and | | pelvis at the [facility] in [place], [place], on | | 09/24/2015 demonstrating right upper quadrant post-surgical | | changes. No evidence of recurrent neoplasm. Interval development | | of a small hernia containing bowel and fat 3 cm above the | | umbilicus.16. Repeat CT scan of the abdomen and pelvis on | | 12/22/2015 at the [facility] in [place], [place], | | demonstrating a 1.5 cm soft tissue nodule just inferior to the | | liver within the mesentery on the right. In addition, there were | | tiny nodules in the bilateral upper quadrants.17. PET CT scan at | | [facility] in [place], [place], on 12/31/2015 | | demonstrating benign findings. The nodularity along the omental | | fat along the left colon and liver tail showed no abnormal | | uptake.18. Presentation to the [facility] Emergency | | Room on 03/15/2016 with [...] | Repeat CT scan of C/A/P at [facility] on July 01, 2016 | | demonstrated [...] | | contrast, October 06, 2016, at [facility] in [facility] | | [place], demonstrated no evidence of recurrence or metastatic | | disease. Aura continued on observation without treatment.23. | | Repeat CT scan of the chest/abdomen/pelvis at [facility] demonstrated progression of disease and | [...] will see Dr. Richie Thayer at the [facility] | [facility] [place]. | + + + + + | [...] | 05/13/ | Orders Only | | Johnson, Marcelina L, | | | 2018 | | | RN | | +--------+ [...] + | Blood Pressure | 114/73 | 02/02/20171305 PST | + + + + | Pulse | 65 | 02/02/20171305 PST | + + + + | Temperature | 36.9 C (98.4 F) | 02/02/20171305 PST | + + + + | Respiratory Rate | 16 | 02/02/20171305 PST | + + + + | Oxygen Saturation | 97% | 02/02/20171305 PST | + + + + | Inhaled Oxygen | - | - | | Concentration | | | + + + + | Weight | 77.3 kg (170 lb 6.7 | 02/02/20171305 PST | | | oz) | | + + + + | Height | 162 cm (5' 3.78") | 12/17/20146 PST | + + + + | Body Mass Index | 29.45 | 02/02/2017 1306 PST | + + + + Plan of Treatment +--------+ + + + + | Date | Type | Specialty | Care Team | Description | +--------+ + + + + | 05/20/ | Appointment | | Vladimir Robles, | | | 2017 | | | MD | | +--------+ + + + + | 05/20/ | Hospital | | Vladimir Robles, | | | [...] | + + + + + Results IMAGING REPORT - EXTERNAL SCAN (04/26/2017) + + | Narrative | + + | Ordered by an unspecified provider. | + + LABS - EXTERNAL SCAN (04/25/2017) + + | Narrative | + + [...] | | | + +--------+ +--------+-------+---------+ | [facility] | [employer] | xxxxxxxxx | Indemn [...] | Self | [birth year] | Work: | [address] | | | cas/[employer] | | 1961 | [phone] | [place] [address] | | | jose alejandro | | | [address]: | | | | | | | | | | | | | | [phone] | | | | | | | [phone] | | + +--------+ +--------+ + +
[~2017-05-19 10:58] MED LIST changes: +OXYCONTIN20 MG PO
[2017-05-19] MEDS ORDERED: DILAUDID2 MG PO (15:18)
[2017-05-19] MEDS ORDERED: ONDANSETRON ODT8 MG PO (15:18)
[2017-05-19] MEDS ORDERED: PROMETHAZINE HC25 M1 PO (15:18)
[2017-06-17] MEDS ORDERED: MORPHINE IV (09:03)
[2017-06-17] MEDS ORDERED: DEXAMETHASONE4 MG PO (09:04)
[2017-07-01] MEDS ORDERED: DILAUDID 22 MG/1 M1 (10:21)
[2017-07-01] MEDS ORDERED: FENTANYL1 EAC3 TD (10:23)
[2017-07-22] MEDS ORDERED: DILAUDID2 MG PO (09:47)
== END 2017-05-19 15:59 | disposition home or self-care (01) ==
LOC: ED 10:58
DX: C23 Malignant neoplasm of gallbladder (principal); R11.2 Nausea with vomiting, unspecified; R10.13 Epigastric pain; Z88.2 Allergy status to sulfonamides; Z79.899 Other long term (current) drug therapy
CPT/HCPCS: 80053; 81001; 83690; 85025; 96374; 96375; 96376; 99283; J1170; J2405; J2550; J7030

== ENCOUNTER 2017-05-23 00:37 | Inpatient (IN) | payer BC, OTHER ==
[~2017-05-23] VITALS: Ht 160 cm; Wt 73.5 kg
--- OUTSIDE RECORDS SUMMARY | ~2017-05-23 | XMS | Encounter Summary ---
Demographics + + + | Address | [address] | | | [place] [address] | + + + | Home Phone | | + + + | Preferred Language | Unknown | + + + | Marital Status | Single | + + + | Religion Affiliation | Unknown | + + + | Race | Unknown | + + + | Ethnic Group | Unknown | + + + Author + + + | Author | [facility] | | | and Eduardoana | + + + | Organization | [facility] | | | and [place]ardo[place] | + + + | Address | Unknown | + + + | Phone | Unavailable | + + + Support + + + + + | Name | Relationship | Address | Phone | + + + + + | Poncho Oquendo | ECON | [address] | | | | | [place] | | | | | [address] | | + + + + + | Marta Upton | ECON | [place] | | | | | [address] | | + + + + + Care Team Providers + +------+ + | Care Financial Specialist Name | Role | Phone | + +------+ + | Valeriy Carmona DO | PCP | | + +------+ + Reason for Visit Evaluate & Treat (Routine) + +--------+ + + + + | Status | Reason | Specialty | Diagnoses / | Referred By | Referred To | | | | | Procedures | Contact | Contact | + +--------+ + + + + | Authorized | | Oncology | Diagnoses | [facility] | Travis, | | | | | [facility] | Medical | Vladimir Nelson MD | | | | | Q IS OUT- | Oncology | | | | | | PATIENT IS | Clinic [address] | | | | | | FROM [facility] | [address] | | | | | | LABS/PORT | [place], | | | | | | [address] | [place] | | | | | | Procedures | [address] | | | | | | [facility] | Phone: | | | | | | FOLLOW UP | [phone] | | | | | | | Fax: | | | | | | | [phone] | | + +--------+ + + + + Encounter Details +--------+ + + + + | Date | Type | Department | Care Team | Description | +--------+ + + + + | 05/20/ | Hospital | [facility] | TravisVladimir, | Gallbladder cancer, | | 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 | MED CTR MEDICAL | MD | carcinoma (HCC) | | | | ONCOLOGY CLINIC [address] | | (Primary Dx); Liver | | | | [address] [place] | | metastases (HCC); | | | | [place] [address] | | Stage 3a chronic | | | | [phone] | | kidney disease; | | | [...] tablet by | 20 | 5 | // | | | (DECADRON) 4 mg | [...] different from the original. Hematology-Oncology Progress Note [facility] Pt. Name/Age/: Aura Upton 56 y.o. 1960 CSN: [id number] Date of service: 05/20/2017 Provider: Vladimir Robles [...] adjustment of her ch emotherapy, specifically the cis-wales given her renal dysfunction. 1. Proceed with day 1, cycle 1 of dose adjusted cis-wales and gemcitabine as ordered. 2. Increase OxyContin [...] nausea, has decided to t ry palliative cis-wales/gemcitabine again to which she has responded in the past. Ended up in the emergency room yesterday in [place] with nausea and vomiting, responded to ondan [...] and 6 hour treatment, labs done in [place] ER. My chart: Medications: Current Outpatient Prescriptions [...] this chart may have been created with [employer] voice recognition software. Occasi onal wrong-word or sound-alike substitutions may have occurred due to the inherent stevenson itations of voice recognition software. Please read the chart carefully and recognize, using context, where these substitutions have occurred.in this encounter Plan of Treatment +--------+ + + + + | Date | Type | Specialty | Care Team | Description | +--------+ + + + + | 05/27/ | Appointment | Oncology | Vladimir Robles, | | | 2018 | | | MD | | +--------+ + + + + | 05/27/ | Appointment | Infusion Therapy | Vladimir Robles, | | | 2017 | | | MD | | +--------+ + + + + as of this encounter Visit Diagnoses + [...]
--- OUTSIDE RECORDS SUMMARY | ~2017-05-23 | XMS | Encounter Summary ---
Demographics + + + | Address | [address] | | | [place] [address] | + + + | Home Phone [...] | Author | [facility] | | | and Eduardo[place] | + + + | Organization | [facility] | | | and Eduardo[place] | + + + | Address | Unknown | + + + | Phone | Unavailable | + + + Support + + + + + | Name | Relationship | Address | Phone | + + + + + | Poncho Oquendo | ECON | [address] | | | | | [place] | | | | | [address] | | + + + + + | Marta Upton | ECON | [place] | | | | | [address] | | + + + + + Care Team Providers + +------+ + | Care Bobbin Loose End Finder Name | Role | Phone | + [...] | | ONCOLOGY CLINIC [address] | [facility] | | | | | [address] | [place] [address] | | | | | [place] [address] | [phone] | | | | | [phone] | | | +--------+ + + + [...] as of this encounter Plan of Treatment +--------+ + + + + | Date | Type | Specialty | Care Team | Description | +--------+ + + + + | 05/27/ | Appointment | Oncology | Vladimir Robles, | | | 2017 | | | MD | | +--------+ + + + + | 05/27/ | Appointment | Infusion Therapy | Vladimir Robles, | | | 2017 | | | MD | | +--------+ + + + + as of this encounter Visit Diagnoses Not on filein this encounter"
--- OUTSIDE RECORDS SUMMARY | ~2017-05-23 | XMS | Clinical Summary ---
Demographics + + + | Address | [address] | | | [place] [address] | + + + | Home Phone | | + + + | Preferred Language | Unknown | + + + | Marital Status | Single | + + + | Alevism Affiliation | NON | + + + [...] Providers + +------+ + | Care Assistant Food Service Manager Name | Role | Phone | + +------+ + | Valeriy Carmona MD | PP | Unavailable | + +------+ + Source Comments GWEN is fully live on both EpicCare Ambulatory and EpicCare InPatient.[facility] Allergies + + + + + [...]
--- OUTSIDE RECORDS SUMMARY | ~2017-05-23 | XMS | Encounter Summary ---
Demographics + + + | Address | [address] | | | [place] [address] | + + + | Home Phone [...] | [facility] | | | and Eduardo[place] | + + + | Organization | [facility] | | | and [place]ardo[place] | + + + | Address | Unknown | + + + | Phone | Unavailable | + + + Support + + + + + | Name | Relationship | Address | Phone | + + + + + | Poncho Oquendo | ECON | [address] | | | | | [place] | | | | | [address] | | + + + + + | Marta Upton | ECON | [place] | | | | | [address] | | + + + + + Care Team Providers + +------+ + | Care Aircrewman Name | Role | Phone | + [...] [address] [place] | | | | | [address] [place], | [place] [address] | | | | | [place] [address] | [phone] | | | | | [phone] | | | +--------+ + + + [...]
--- OUTSIDE RECORDS SUMMARY | ~2017-05-23 | XMS | Encounter Summary ---
Demographics + + + | Address | [address] | | | [place] [address] | + + + | Home Phone [...] Author | [facility] | | | and Eduardo[place] | + + + | Organization | [facility] | | | and Eduardoana | + + + | Address | Unknown | + + + | Phone | Unavailable | + + + Support + + + + + | Name | Relationship | Address | Phone | + + + + + | Poncho Oquendo | ECON | [address] | | | | | [place] | | | | | [address] | | + + + + + | Marta Upton | ECON | [place] | | | | | [address] | | + + + + + Care Team Providers + +------+ + | Care Construction Supervisor/Carpenter Name | Role | Phone | + [...] [address] [place] | | | | | [place], | [place] [address] | | | | | [place] [address] | [phone] | | | | | [phone] | | | +--------+ + + + [...]
--- OUTSIDE RECORDS SUMMARY | ~2017-05-23 | XMS | Encounter Summary ---
Demographics + + + | Address | [address] | | | [place] [address] | + + + | Home Phone | | + + + | Preferred Language | Unknown | + + + | Marital Status | Single | + + + | Buddhism Affiliation | Unknown | + + + | Race | Unknown | + + + | Ethnic Group | Unknown | + + + Author + + + | Author | [facility] | | | and Eduardo[place] | + + + | Organization | [facility] | | | and [place]ardo[place] | + + + | Address | Unknown | + + + | Phone | Unavailable | + + + Support + + + + + | Name | Relationship | Address | Phone | + + + + + | Poncho Oquendo | ECON | [address] | | | | | [place] | | | | | [address] | | + + + + + | Marta Upton | ECON | [place] | | | | | [address] | | + + + + + Care Team Providers + +------+ + | Care Resource Room Teacher Name | Role | Phone | + +------+ + | Valeriy Carmona DO | PCP | | + +------+ + Encounter Details +--------+ + + + + | Date | Type | Department | Care Team | Description | +--------+ + + + + | 05/13/ | Orders Only | [facility] | Marcelina Johnson, | | | 2017 | | MED CTR CHEMO | RN | | | | | INFUSION [address] | | | | | | [place], | | | | | | [place] [address] | | | | | | [phone] | | | +--------+ + + + [...]
--- OUTSIDE RECORDS SUMMARY | ~2017-05-23 | XMS | Clinical Summary ---
Demographics + + + | Address | [address] | | | [place] [address] | + + + | Home Phone [...] Team Providers + +------+ + | Care Alarm Mechanic Name | Role | Phone | + +------+ + | Valeriy Carmona MD | PP | Unavailable | + +------+ + Source Comments GWEN is fully live on both EpicCare Ambulatory and EpicCare InPatient.[facility] Allergies + + + + [...]
--- OUTSIDE RECORDS SUMMARY | ~2017-05-23 | XMS | Encounter Summary ---
Demographics + + + | Address | [address] | | | [place] [address] | + + + | Home Phone | | + + + | Preferred Language | Unknown | + + + | Marital Status | Single | + + + | Holiness Affiliation | Unknown | + + + | Race | Unknown | + + + | Ethnic Group | Unknown | + + + Author + + + | Author | [facility] | | | and Eduardo[place] | + + + | Organization | [facility] | | | and [place]ardo[place] | + + + | Address | Unknown | + + + | Phone | Unavailable | + + + Support + + + + + | Name | Relationship | Address | Phone | + + + + + | Poncho Oquendo | ECON | [address] | | | | | [place] | | | | | [address] | | + + + + + | Marta Upton | ECON | [place] | | | | | [address] | | + + + + + Care Team Providers + +------+ + | Care Chief Technologist Name | Role | Phone | + +------+ + | Valeriy Carmona DO | PCP | | + +------+ + Encounter Details +--------+ + + + + | Date | Type | Department | Care Team | Description | +--------+ + + + + | 05/13/ | Orders Only | [facility] | Marcelina Johnson, | | | 2017 | | MED CTR CHEMO | RN | | | | | INFUSION [address] | | | | | | [place], | | | | | | [place] [address] | | | | | | [phone] | | | +--------+ + + + [...]
--- OUTSIDE RECORDS SUMMARY | ~2017-05-23 | XMS | Encounter Summary ---
Demographics + + + | Address | [address] | | | [place] [address] | + + + | Home Phone [...] Author | [facility] | | | and Eduardoana | + + + | Organization | [facility] | | | and Eduardoana | + + + | Address | Unknown | + + + | Phone | Unavailable | + + + Support + + + + + | Name | Relationship | Address | Phone | + + + + + | Poncho Oquedno | ECON | [address] | | | | | [place] | | | | | [address] | | + + + + + | Marta Upton | ECON | [place] | | | | | [address] | | + + + + + Care Team Providers + +------+ + | Care Equalizer Operator Name | Role | Phone | [...] 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, | [place]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 | MD [address] | [place], | | | | | (HCC) | [address] | [place] [address] | | | | | Procedures | ARCADIO DASILVAA, | Phone: | | | | | [place] | [place] [address] | [phone] | | | | | DIPHENHYDRAM | Phone: | Fax: | | | | | INE HCL | [phone] | [phone] | | | | | INJECTIO, 50 | Fax: | | | | | | MG [place] | [phone] | | | | | | ONDANSETRON | | | | | | | HCL | | | | | | | INJECTION, 1 | | | | | | | MG [place] | | | | | | | DEXAMETHASON | | | | | | | E SODIUM | | | | | | | PHOS, 1 MG | | | | | | | [place] | | | | | | | FOSAPREPITAN | | | | | | | T INJECTION, | | | | | | | 1 MG [place] | | | | | | | LORAZEPAM | | | | | | | INJECTION, 2 | | | | | | | MG [place] | | | | | | | GEMCITABINE | | | | | | | HCL | | | | | | | INJECTION, | | | | | | | 200 MG [place] | | | | | | | CISPLATIN 10 | | | | | | | MG | | | | | | | INJECTION | | | | | | | [place] | | | | | | | METHYLPREDNI | | | | | | | SOLONE | | | | | | | INJECTION, | | | | | | | 125 MG [place] | | | | | | | ADRENALIN | | | | | | | EPINEPHRINE | | | | | | | INJECT, .1 | | | | | | | MG [place] | | | | | | | FILGASTIM | | | | | | | (ZARXIO) 300 | | | | | | | MCG/0.5ML | | | | | | | SOSY, PER 1 | | | | | | | MCG [place] | | | | | | | INJECTION, | | | | | | | FAMOTIDINE, | | | | | | | 20 MG [place] | | | | | | | NORMAL | | | | | | | SALINE | | | | | | | SOLUTION | | | | | | | INFUS, 500 | | | | | | | ML [place] | | | | | | | NORMAL | | | | | | | SALINE | | | | | | | SOLUTION | | | | | | | INFUS, 250 | | | | | | | ML [place] | | | | | | | STERILE | | | | | | | WATER/SALINE | | | | | | | , 10 ML [place] | | | | | | | CHEMOTHER, | | | | | | | IV PUSH,EA | | | | | | | ADD DRUG [place] | | | | | | | CHEMOTHER, | | | | | | | IV INFUSION, | | | | | | | 1 HR [place] | | | | | | | CHEMOTHER, | | | | | | | IV INFUSION, | | | | | | | EA HR [place] | | | | | | | CHEMOTHER,NO | | | | | | | N-HORMONE | | | | | | | ANTI-NEOPL, | | | | | | | SUB-Q/IM [place] | | | | | | | [...] + + | 05/20/ | Hospital | [facility] | Vladimir Robles, | Gallbladder cancer, | | 2017 | Encounter | MED CTR CHEMO | MD | carcinoma (HCC) | | | | INFUSION [address] | | | | | | [place], | | | | | | [place] [address] | | | | | | [phone] | | | +--------+ + + + [...] Progress Notes Sasha Renee RN - 05/20/2017 1323 PDTReports nausea resolved discharged in stable c ondition to follow up in [place] as scheduled.in this encounter Plan of Treatment +--------+ + [...] + + + as of this encounter Results LABS - EXTERNAL [...] | | | | | Care, Starting 05/20/17 at 0930 | | | | | [...]
--- OUTSIDE RECORDS SUMMARY | ~2017-05-23 | XMS | Encounter Summary ---
Demographics + + + | Address | [address] | | | [place] [address] | + + + | Home Phone [...] + + + | Author | [facility] | | | and Edaurdoana | + + + | Organization | [facility] | | | and Eduardoana | + + + | Address | Unknown | + + + | Phone | Unavailable | + + + Support + + + + + | Name | Relationship | Address | Phone | + + + + + | Poncho Oquendo | ECON | [address] | | | | | [place] | | | | | [address] | | + + + + + | Marta Upton | ECON | [place] | | | | | [address] | | + + + + + Care Team Providers + +------+ + | Care Cotton Classer Name | Role | Phone | + [...] | | | ONCOLOGY CLINIC [address] | [facility] | | | | | [address] [facility] | [place] [address] | | | | | [place] [address] | [phone] | | | | | [phone] | | | +--------+ + + + [...]
--- OUTSIDE RECORDS SUMMARY | ~2017-05-23 | XMS | Encounter Summary ---
Demographics + + + | Address | [address] | | | [place] [address] | + + + | Home Phone [...] [facility] | | | and Eduardoana | + + + | Organization | [facility] | | | and Eduardoana | + + + | Address | Unknown | + + + | Phone | Unavailable | + + + Support + + + + + | Name | Relationship | Address | Phone | + + + + + | Poncho Oquendo | ECON | [address] | | | | | [place] | | | | | [address] | | + + + + + | Marta Upton | ECON | [place] | | | | | [address] | | + + + + + Care Team Providers + +------+ + | Care Power Wheelchair Mechanic Name | Role | Phone | [...] [address] [place] | | | | | [place], | [place] [address] | | | | | [place] [address] | [phone] | | | | | [phone] | | | +--------+ + + + [...]
--- OUTSIDE RECORDS SUMMARY | ~2017-05-23 | XMS | Encounter Summary ---
Demographics + + + | Address | [address] | | | [place] [address] | + + + | Home Phone | | + + + | Preferred Language | Unknown | + + + | Marital Status | Single | + + + | Holiness Affiliation | Unknown | + + + | Race | Unknown | + + + | Ethnic Group | Unknown | + + + Author + + + | Author | [facility] | | | and Eduardoana | + + + | Organization | [facility] | | | and Eduardoana | + + + | Address | Unknown | + + + | Phone | Unavailable | + + + Support + + + + + | Name | Relationship | Address | Phone | + + + + + | Poncho Oquendo | ECON | [address] | | | | | [place] | | | | | [address] | | + + + + + | Marta Upton | ECON | [place] | | | | | [address] | | + + + + + Care Team Providers + +------+ + | Care Music Engineer Name | Role | Phone | + +------+ + | Valeriy Carmona DO | PCP | | + +------+ + Encounter Details +--------+ + + + + | Date | Type | Department | Care Team | Description | +--------+ + + + + | 05/13/ | Orders Only | [facility] | Marcelina Johnson, | | | 2017 | | MED CTR CHEMO | RN | | | | | INFUSION [address] | | | | | | [place], | | | | | | [place] [address] | | | | | | [phone] | | | +--------+ + + + [...]
--- OUTSIDE RECORDS SUMMARY | ~2017-05-23 | XMS | Clinical Summary ---
Demographics + + + | Address | [address] | | | [place] [address] | + + + | Home Phone | | + + + | Preferred Language | Unknown | + + + | Marital Status | Single | + + + | Uatsdin Affiliation | Unknown | + + + | Race | Unknown | + + + | Ethnic Group | Unknown | + + + Author + + + | Author | [facility] | | | and Eduardoana | + + + | Organization | [facility] | | | and Eduardoana | + + + | Address | Unknown | + + + | Phone | Unavailable | + + + Support + + + + + | Name | Relationship | Address | Phone | + + + + + | Poncho Oquendo | ECON | [address] | | | | | [place] | | | | | [address] | | + + + + + | Marta Corbin | ECON | [place] | | | | | [address] | | + + + + + Care Team Providers + +------+ + | Care Telesales Agent Name | Role | Phone | [...] | | written pain management agreement/narcotic contract. [[facility] | | Health and Services Provider Handbook [...] Garcia on | | 03/29/2012. Pathological specimen [id number] was analyzed by | | Liu Bowers M.D. of [facility] and was notable | | for a poorly-differentiated adenocarcinoma of the gallbladder. | | Liver biopsy was performed at the same time of the procedure and | | demonstrated portal inflammation.2. On 04/26/2012, she | | successfully underwent a R0 resection by Dr. Tai Stanton, of | | the [facility]. Pathological specimen | | [id number] was notable for the absence of any residual | | carcinoma within the gallbladder bed; however, 2/8 regional lymph | | nodes were positive for regionally metastatic disease.3. | | Consultation with Dr. Elva Grey of the [facility] | | [facility] on 05/17/2012, which returned the [...] Dr. Miguel Henderson of the | | [facility]. 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 However, 122 of the remaining genes | | analyzed in the assay were all wild type.7. Repeat consultation | | with Dr. Elva Grey of the [facility] | | on 06/26/2014 returned the recommendation for additional | | chemotherapy with cisplatin at 75 mg/m2 on day 1 with gemcitabine | | at 1250 mg/m2 on day-1 and day-8 of the every 21-day cycle for | | 6-8 cycles. This was followed by a second opinion by Dr. Quiroz | | Jeovany of the [facility] who recommended | | chemotherapy with cisplatin [...] recommendations of Dr. Richie Thayer of the [facility] | | [place] with gemcitabine at 1000 mg/m2 on day-1 and day-8 with | | cisplatin 25 mg/m2 on day-1 and day-8 of the every 21-day cycle, | | beginning on 07/26/2014. Chemotherapy was complicated by grade 3 | | neutropenia without fever a grade 3 thrombocytopenia without | | bleeding.10. Repeat CT scan of the abdomen and pelvis on | | 09/16/2014 at the [facility] in [facility] | | [place], demonstrated stable postoperative changes involving | | [...] the chest, abdomen, and pelvis at the [facility]. | | [facility] in [place], [place], | | demonstrated stable postoperative changes [...] abdomen, and | | pelvis at the [facility] in [place], [place], on | | 06/23/2015 demonstrating postoperative changes in the right upper | | quadrant. No evidence of recurrence or any evidence of | | metastatic disease.15. Repeat CT scan of the chest, abdomen, and | | pelvis at the [facility] in [place], [place], on | | 09/24/2015 demonstrating right upper quadrant post-surgical | | changes. No evidence of recurrent neoplasm. Interval development | | of a small hernia containing bowel and fat 3 cm above the | | umbilicus.16. Repeat CT scan of the abdomen and pelvis on | | 12/22/2015 at the [facility] in [place], [place], | | demonstrating a 1.5 cm soft tissue nodule just inferior to the | | liver within the mesentery on the right. In addition, there were | | tiny nodules in the bilateral upper quadrants.17. PET CT scan at | | [facility] in [place], [place], on 12/31/2015 | | demonstrating benign findings. The nodularity along the omental | | fat along the left colon and liver tail showed no abnormal | | uptake.18. Presentation to the [facility] | | Room on [...] | Repeat CT scan of C/A/P at [facility] on July 01, 2016 | [...] | | contrast, October 06, 2016, at [facility] in [facility] | | [place], demonstrated no evidence of recurrence or metastatic | | disease. Aura continued on observation without treatment.23. | | Repeat CT scan of the chest/abdomen/pelvis at [facility] demonstrated progression of disease and | [...] will see Dr. Richie Thayer at the [facility] | | [facility] [place]. | + + + + + | [...] 2017 | Encounter | | MD | carcinoma [...] 2017 | Encounter | | MD | carcinoma (HCC) | +--------+ + + + + | 05/19/ | Telephone | | Reinaldo, | Other [...] + + + + Plan of Treatment +--------+ + + + + | Date | Type | Specialty | Care Team | Description | +--------+ + + + + | 05/27/ | Appointment | | Vladimir Robles, | | | 2017 | | | MD | | +--------+ + + + + | 05/27/ | Appointment | | Vladimir Robles, | | | 2017 | | | MD | | +--------+ + + + + + + + [...] EXTERNAL SCAN (05/19/2017)Only the most recent of 2 results within the time period i s [...] | | | + +--------+ +--------+-------+---------+ | [facility] | IHS | xxxxxxxxx | Indemn [...] | Self | [birth year] | Work: | [address] | | | al/Jaspreet | | 1961 | [phone] | [place] [address] | | | jose alejandro | | | [address]: | | | | | | | | | | | | | | [phone] | | | | | | | [phone] | | + +--------+ +--------+ + +
--- OUTSIDE RECORDS SUMMARY | ~2017-05-23 | XMS | Encounter Summary ---
Demographics + + + | Address | [address] | | | [place] [address] | + + + | Home Phone [...] | Author | [facility] | | | and Eduardoana | + + + | Organization | [facility] | | | and Eduardoana | + + + | Address | Unknown | + + + | Phone | Unavailable | + + + Support + + + + + | Name | Relationship | Address | Phone | + + + + + | Poncho Oquendo | ECON | [address] | | | | | [place] | | | | | [address] | | + + + + + | Marta Upton | ECON | [place] | | | | | [address] | | + + + + + Care Team Providers + +------+ + | Care Hotel Administrative Assistant Name | Role | Phone | [...] | | | | | | FROM [facility]- | [address] | | | | | | LABS/PORT | [place], | | | | | | [address] | [place] | | | | | | Procedures | [address] | | | | | | [facility] | Phone: | | | | | | FOLLOW UP | [phone] | | | | | | | Fax: | | | | | | | [phone] | | + +--------+ + + + + Encounter Details +--------+ + + + + | Date | Type | Department | Care Team | Description | +--------+ + + + + | 05/20/ | Hospital | [facility] | TravisVladimir, | Gallbladder cancer, | | 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 | MED CTR MEDICAL | MD | carcinoma (HCC) | | | | ONCOLOGY CLINIC [address] | | (Primary Dx); Liver | | | | [address] [place] | | metastases (HCC); | | | | [place] [address] | | Stage 3a chronic | | | | [phone] | | kidney disease; | | | [...] from the original. Hematology-Oncology Progress Note [facility] Pt. Name/Age/: Aura Upton 56 y.o. 1960 CSN: [id number] Date of service: 05/20/2017 Provider: Vladimir Robles [...] adjustment of her ch emotherapy, specifically the cis-[place] given her renal dysfunction. 1. Proceed with day 1, cycle 1 of dose adjusted cis-[place] and gemcitabine as ordered. 2. Increase OxyContin [...] nausea, has decided to t ry palliative cis-[place]/gemcitabine again to which she has responded in the past. Ended up in the emergency room yesterday in [place] with nausea and vomiting, responded to ondan [...] and 6 hour treatment, labs done in [place] ER. My chart: Medications: Current Outpatient Prescriptions [...] this chart may have been created with [employer] voice recognition software. Occasi onal wrong-word or [...] 05/27/ | Appointment | Infusion Therapy | Bella Robleschristiano Nelson, | | | 2017 | | | [...]
--- OUTSIDE RECORDS SUMMARY | ~2017-05-23 | XMS | Encounter Summary ---
Demographics + + + | Address | [address] | | | [place] [address] | + + + | Home Phone [...] + | Author | [facility] | | | and Eduardoana | + + + | Organization | [facility] | | | and Eduardoana | + + + | Address | Unknown | + + + | Phone | Unavailable | + + + Support + + + + + | Name | Relationship | Address | Phone | + + + + + | Poncho Oquendo | ECON | [address] | | | | | [place] | | | | | [address] | | + + + + + | Marta Upton | ECON | [place] | | | | | [address] | | + + + + + Care Team Providers + +------+ + | Care Proteomics Scientist Name | Role | Phone | [...] | | | ONCOLOGY CLINIC [address] | [facility] | | | | | [address] | [place] [address] | | | | | [place] [address] | [phone] | | | | | [phone] | | | +--------+ + + + [...]
--- OUTSIDE RECORDS SUMMARY | ~2017-05-23 | XMS | Clinical Summary ---
Demographics + + + | Address | [address] | | | [place] [address] | + + + | Home Phone [...] Team Providers + +------+ + | Care Nursing Surgical Services Director Name | Role | Phone | + +------+ + | Valeriy Carmona MD | PP | Unavailable | + +------+ + Source Comments GWEN is fully live on both EpicCare Ambulatory and EpicCare InPatient.[facility] Allergies + + + + + [...]
--- OUTSIDE RECORDS SUMMARY | ~2017-05-23 | XMS | Encounter Summary ---
Demographics + + + | Address | [address] | | | [place] [address] | + + + | Home Phone [...] Author | [facility] | | | and Eduardoana | + + + | Organization | [facility] | | | and Eduardoana | + + + | Address | Unknown | + + + | Phone | Unavailable | + + + Support + + + + + | Name | Relationship | Address | Phone | + + + + + | Poncho Oquendo | ECON | [address] | | | | | [place] | | | | | [address] | | + + + + + | Marta Upton | ECON | [place] | | | | | [address] | | + + + + + Care Team Providers + +------+ + | Care Crown Ironer Name | Role | Phone | [...] | | | | | | FROM [facility]- | [address] | | | | | | LABS/PORT | [place], | | | | | | [address] | [place] | | | | | | Procedures | [address] | | | | | | [facility] | Phone: | | | | | | FOLLOW UP | [phone] | | | | | | | Fax: | | | | | | | [phone] | | + +--------+ + + + + Encounter Details +--------+ + + + + | Date | Type | Department | Care Team | Description | +--------+ + + + + | 05/20/ | Hospital | [facility] | TravisVladimir, | Gallbladder cancer, | | 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 | MED CTR MEDICAL | MD | carcinoma (HCC) | | | | ONCOLOGY CLINIC [address] | | (Primary Dx); Liver | | | | [address] [place] | | metastases (HCC); | | | | [place] [address] | | Stage 3a chronic | | | | [phone] | | kidney disease; | | | [...] different from the original. Hematology-Oncology Progress Note [facility] Pt. Name/Age/: Aura Upton 56 y.o. 1960 CSN: [id number] Date of service: 05/20/2017 Provider: Vladimir Robles [...] adjustment of her ch emotherapy, specifically the cis[place] given her renal dysfunction. 1. Proceed with day 1, cycle 1 of dose adjusted [place] and gemcitabine as ordered. 2. Increase OxyContin [...] nausea, has decided to t ry palliative [place]/gemcitabine again to which she has responded in the past. Ended up in the emergency room yesterday in [place] with nausea and vomiting, responded to ondan [...] and 6 hour treatment, labs done in [place] ER. My chart: Medications: Current Outpatient Prescriptions [...] by: Vladimir Robles MD 05/20/2017 9:29 CC: Vaelriy Carmona DO Portions of this chart may have been created with [employer] voice recognition software. Occasi onal wrong-word or [...]
--- OUTSIDE RECORDS SUMMARY | ~2017-05-23 | XMS | Encounter Summary ---
Demographics + + + | Address | [address] | | | [place] [address] | + + + | Home Phone [...] + | Author | [facility] | | | and Eduardoana | + + + | Organization | [facility] | | | and Eduardoana | + + + | Address | Unknown | + + + | Phone | Unavailable | + + + Support + + + + + | Name | Relationship | Address | Phone | + + + + + | Poncho Oquendo | ECON | [address] | | | | | [place] | | | | | [address] | | + + + + + | Marta Upton | ECON | [place] | | | | | [address] | | + + + + + Care Team Providers + +------+ + | Care Manufacturing Associate Name | Role | Phone | [...] | | | | | | FROM [facility]- | [address] | | | | | | LABS/PORT | [place], | | | | | | [address] | [place] | | | | | | Procedures | [address] | | | | | | [facility] | Phone: | | | | | | FOLLOW UP | [phone] | | | | | | | Fax: | | | | | | | [phone] | | + +--------+ + + + + Encounter Details +--------+ + + + + | Date | Type | Department | Care Team | Description | +--------+ + + + + | 05/20/ | Hospital | [facility] | TravisVladimir, | Gallbladder cancer, | | 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 | MED CTR MEDICAL | MD | carcinoma (HCC) | | | | ONCOLOGY CLINIC [address] | | (Primary Dx); Liver | | | | [address] [place] | | metastases (HCC); | | | | [place] [address] | | Stage 3a chronic | | | | [phone] | | kidney disease; | | | [...] different from the original. Hematology-Oncology Progress Note [facility] Pt. Name/Age/: Aura Upton 56 y.o. 1960 CSN: [id number] Date of service: 05/20/2017 Provider: Vladimir Robles [...] adjustment of her ch emotherapy, specifically the cis-[place] given her renal dysfunction. 1. Proceed with day 1, cycle 1 of dose adjusted [place] and gemcitabine as ordered. 2. Increase OxyContin [...] nausea, has decided to t ry palliative [place]/gemcitabine again to which she has responded in the past. Ended up in the emergency room yesterday in [place] with nausea and vomiting, responded to ondan [...] and 6 hour treatment, labs done in [place] ER. My chart: Medications: Current Outpatient Prescriptions [...] this chart may have been created with [employer] voice recognition software. Occasi onal wrong-word or [...]
--- OUTSIDE RECORDS SUMMARY | ~2017-05-23 | XMS | Clinical Summary ---
Demographics + + + | Address | [address] | | | [place] [address] | + + + | Home Phone [...] | [facility] | | | and [place] | + + + | Organization | [facility] | | | and [place] | + + + | Address | Unknown | + + + | Phone | Unavailable | + + + Support + + + + + | Name | Relationship | Address | Phone | + + + + + | Poncho Oquendo | ECON | [address] | | | | | [place] | | | | | [address] | | + + + + + | Marta Corbin | ECON | [place] | | | | | [address] | | + + + + + Care Team Providers + +------+ + | Care History Faculty Member Name | Role | Phone [...] | | written pain management agreement/narcotic contract. [[facility] | | Health and Services Provider Handbook [...] Garcia on | | 03/29/2012. Pathological specimen [id number] was analyzed by | | Lui Bowers M.D. of [place] [facility] and was notable | | for a poorly-differentiated adenocarcinoma of the gallbladder. | | Liver biopsy was performed at the same time of the procedure and | | demonstrated portal inflammation.2. On 04/26/2012, she | | successfully underwent a R0 resection by Dr. Tai Stanton, of | | the [facility]. Pathological specimen | | [id number] was notable for the absence of any residual | | carcinoma within the gallbladder bed; however, 2/8 regional lymph | | nodes were positive for regionally metastatic disease.3. | | Consultation with Dr. Elva Grey of the [facility] | | [facility] on 05/17/2012, which returned the [...] Dr. Miguel Henderson of the | | [facility] [place]. 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 However, 122 of the remaining genes | | analyzed in the assay were all wild type.7. Repeat consultation | | with Dr. Elva Grey of the [facility] | | on 06/26/2014 returned the recommendation for additional | | chemotherapy with cisplatin at 75 mg/m2 on day 1 with gemcitabine | | at 1250 mg/m2 on day-1 and day-8 of the every 21-day cycle for | | 6-8 cycles. This was followed by a second opinion by Dr. Quiroz | | Jeovany of the [facility] [place] who recommended | | chemotherapy with cisplatin [...] recommendations of Dr. Richie Thayer of the [facility] | | [place] with gemcitabine at 1000 mg/m2 on day-1 and day-8 with | | cisplatin 25 mg/m2 on day-1 and day-8 of the every 21-day cycle, | | beginning on 07/26/2014. Chemotherapy was complicated by grade 3 | | neutropenia without fever a grade 3 thrombocytopenia without | | bleeding.10. Repeat CT scan of the abdomen and pelvis on | | 09/16/2014 at the [facility] in [facility] | | [place], demonstrated stable postoperative changes involving | | [...] the chest, abdomen, and pelvis at the [facility]. | | [facility] in [place], [place], | | demonstrated stable postoperative changes [...] abdomen, and | | pelvis at the [facility] in [place], [place], on | | 06/23/2015 demonstrating postoperative changes in the right upper | | quadrant. No evidence of recurrence or any evidence of | | metastatic disease.15. Repeat CT scan of the chest, abdomen, and | | pelvis at the [facility] in [place], [place], on | | 09/24/2015 demonstrating right upper quadrant post-surgical | | changes. No evidence of recurrent neoplasm. Interval development | | of a small hernia containing bowel and fat 3 cm above the | | umbilicus.16. Repeat CT scan of the abdomen and pelvis on | | 12/22/2015 at the [facility] in [place], [place], | | demonstrating a 1.5 cm soft tissue nodule just inferior to the | | liver within the mesentery on the right. In addition, there were | | tiny nodules in the bilateral upper quadrants.17. PET CT scan at | | [facility] in [place], [place], on 12/31/2015 | | demonstrating benign findings. The nodularity along the omental | | fat along the left colon and liver tail showed no abnormal | | uptake.18. Presentation to the [facility] Emergency | | Room on [...] | Repeat CT scan of C/A/P at [facility] on July 01, 2016 | [...] | | contrast, October 06, 2016, at [facility] in [facility] | | [place], demonstrated no evidence of recurrence or metastatic | | disease. Aura continued on observation without treatment.23. | | Repeat CT scan of the chest/abdomen/pelvis at [facility] demonstrated progression of disease and | [...] will see Dr. Richie Thayer at the [facility] | [facility] [place]. | + + + + + | [...] | | | + +--------+ +--------+-------+---------+ | [facility] | IHS | xxxxxxxxx | Indemn [...] | Self | [birth year] | Work: | [address] | | | al/Jaspreet | | 1961 | [phone] | [place] [address] | | | jose alejandro | | | [phone] Home: | | | | | | | | | | | | | | [phone] | | | | | | | [phone] | | + +--------+ +--------+ + +
--- OUTSIDE RECORDS SUMMARY | ~2017-05-23 | XMS | Encounter Summary ---
Demographics + + + | Address | [address] | | | [place] [address] | + + + | Home Phone [...] | [facility] | | | and [place] | + + + | Organization | [facility] | | | and [place] | + + + | Address | Unknown | + + + | Phone | Unavailable | + + + Support + + + + + | Name | Relationship | Address | Phone | + + + + + | Poncho Oquendo | ECON | [address] | | | | | [place] | | | | | [address] | | + + + + + | Marta Upton | ECON | [place] | | | | | [address] | | + + + + + Care Team Providers + +------+ + | Care Cash Office Worker Name | Role | Phone | + +------+ + | Valeriy Carmona DO | PCP | | + +------+ + Encounter Details +--------+ + + + + | Date | Type | Department | Care Team | Description | +--------+ + + + + | 05/13/ | Orders Only | [facility] | Marcelina Johnson, | | | 2017 | | [facility] CHE[facility] | RN | | | | | INFUSION [address] | | | | | | [place], | | | | | | [place] [address] | | | | | | [phone] | | | +--------+ + + + [...]
--- OUTSIDE RECORDS SUMMARY | ~2017-05-23 | XMS | Encounter Summary ---
Demographics + + + | Address | [address] | | | [place] [address] | + + + | Home Phone [...] | Author | [facility] | | | and [place] | + + + | Organization | [facility] | | | and [place] | + + + | Address | Unknown | + + + | Phone | Unavailable | + + + Support + + + + + | Name | Relationship | Address | Phone | + + + + + | Poncho Oquendo | ECON | [address] | | | | | [place] | | | | | [address] | | + + + + + | Marta Uptno | ECON | [place] | | | | | [address] | | + + + + + Care Team Providers + +------+ + | Care Handbag Parts Cutter Name | Role | Phone | [...] 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, | [place]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 | MD [address] | [place] [address], | | | | | (HCC) | [address] | [place] [address] | | | | | Procedures | ARCADIO DASILVAA, | Phone: | | | | | [place] | [place] [address] | [phone] | | | | | DIPHENHYDRAM | Phone: | Fax: | | | | | INE HCL | [phone] | [phone] | | | | | INJECTIO, 50 | Fax: | | | | | | MG [place] | [phone] | | | | | | ONDANSETRON [...] | | | | | 20 MG [place] | | | | | [...] | 05/20/ | Hospital | [facility] | Vladimir Robles, | Gallbladder cancer, | | 2017 | Encounter | MED CTR CHEMO | MD | carcinoma (HCC) | | | | INFUSION [address] | | | | | | [place], | | | | | | [place] [address] | | | | | | [phone] | | | +--------+ + + + [...] stable c ondition to follow up in [place] as scheduled.in this encounter Plan of Treatment [...]
--- OUTSIDE RECORDS SUMMARY | ~2017-05-23 | XMS | Encounter Summary ---
Demographics + + + | Address | [address] | | | [place] [address] | + + + | Home Phone [...] Author | [facility] | | | and [place] | + + + | Organization | [facility] | | | and [place] | + + + | Address | Unknown | + + + | Phone | Unavailable | + + + Support + + + + + | Name | Relationship | Address | Phone | + + + + + | Poncho Oquendo | ECON | [address] | | | | | [place] | | | | | [address] | | + + + + + | Marta Upton | ECON | [place] | | | | | [address] | | + + + + + Care Team Providers + +------+ + | Care Carrier Operator Name | Role | Phone | [...] | | | ONCOLOGY CLINIC [address] | [facility] | | | | | [address] [facility] | [place] [address] | | | | | [place] [address] | [phone] | | | | | [phone] | | | +--------+ + + + [...]
--- OUTSIDE RECORDS SUMMARY | ~2017-05-23 | XMS | Encounter Summary ---
Demographics + + + | Address | [address] | | | [place] [address] | + + + | Home Phone [...] | Author | [facility] | | | and [place] | + + + | Organization | [facility] | | | and [place] | + + + | Address | Unknown | + + + | Phone | Unavailable | + + + Support + + + + + | Name | Relationship | Address | Phone | + + + + + | Poncho Oquendo | ECON | [address] | | | | | [place] | | | | | [address] | | + + + + + | Marta Upton | ECON | [place] | | | | | [address] | | + + + + + Care Team Providers + +------+ + | Care Computer Operations Technician Name | Role | Phone | [...] 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, | [place]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 | MD [address] | [place], | | | | | (HCC) | [address] | [place] [address] | | | | | Procedures | ARCADIO DASILVAA, | Phone: | | | | | [place] | [place] [address] | [phone] | | | | | DIPHENHYDRAM | Phone: | Fax: | | | | | [facility] | [phone] | [phone] | | | | | INJECTIO, 50 | Fax: | | | | | | MG MD | [phone] | | | | | | ONDANSETRON [...] + + | 05/20/ | Hospital | [facility] | Vladimir Robles, | Gallbladder cancer, | | 2017 | Encounter | MED CTR CHEMO | MD | carcinoma (HCC) | | | | INFUSION [address] | | | | | | [place], | | | | | | [place] [address] | | | | | | [phone] | | | +--------+ + + + [...] stable c ondition to follow up in [place] as scheduled.in this encounter Plan of Treatment [...]
--- OUTSIDE RECORDS SUMMARY | ~2017-05-23 | XMS | Clinical Summary ---
Demographics + + + | Address | [address] | | | [place] [address] | + + + | Home Phone [...] | Author | [facility] | | | and [place] | + + + | Organization | [facility] | | | and [place] | + + + | Address | Unknown | + + + | Phone | Unavailable | + + + Support + + + + + | Name | Relationship | Address | Phone | + + + + + | Poncho Oquendo | ECON | [address] | | | | | [place] | | | | | [address] | | + + + + + | Marta Corbin | ECON | [place] | | | | | [address] | | + + + + + Care Team Providers + +------+ + | Care Sheet Metal Shop Foreman Name | Role | Phone | [...] | | written pain management agreement/narcotic contract. [[facility] | | Health and Services Provider Handbook [...] Garcia on | | 03/29/2012. Pathological specimen [id number] was analyzed by | | Liu Bowers M.D. of [place] [facility] and was notable | | for a poorly-differentiated adenocarcinoma of the gallbladder. | | Liver biopsy was performed at the same time of the procedure and | | demonstrated portal inflammation.2. On 04/26/2012, she | | successfully underwent a R0 resection by Dr. Tai Stanton, of | | the [facility]. Pathological specimen | | [id number] was notable for the absence of any residual | | carcinoma within the gallbladder bed; however, 2/8 regional lymph | | nodes were positive for regionally metastatic disease.3. | | Consultation with Dr. Elva Grey of the [facility] | | [facility] on 05/17/2012, which returned the | [...] Dr. Miguel Henderson of the | | [facility] [place]. 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 However, 122 of the remaining genes | | analyzed in the assay were all wild type.7. Repeat consultation | | with Dr. Elva Grey of the [facility] | | on 06/26/2014 returned the recommendation for additional | | chemotherapy with cisplatin at 75 mg/m2 on day 1 with gemcitabine | | at 1250 mg/m2 on day-1 and day-8 of the every 21-day cycle for | | 6-8 cycles. This was followed by a second opinion by Dr. Quiroz | | Jeovany of the [facility] [place] who recommended | | chemotherapy with cisplatin [...] recommendations of Dr. Richie Thayer of the [facility] | | [place] with gemcitabine at 1000 mg/m2 on day-1 and day-8 with | | cisplatin 25 mg/m2 on day-1 and day-8 of the every 21-day cycle, | | beginning on 07/26/2014. Chemotherapy was complicated by grade 3 | | neutropenia without fever a grade 3 thrombocytopenia without | | bleeding.10. Repeat CT scan of the abdomen and pelvis on | | 09/16/2014 at the [facility] in [facility] | | [place], demonstrated stable postoperative changes involving | | [...] the chest, abdomen, and pelvis at the [facility]. | | [facility] in [place], [place], | | demonstrated stable postoperative changes [...] at the [facility] in [place], [place], on | | 06/23/2015 demonstrating postoperative changes in the right upper | | quadrant. No evidence of recurrence or any evidence of | | metastatic disease.15. Repeat CT scan of the chest, abdomen, and | | pelvis at the [facility] in [place], [place], on | | 09/24/2015 demonstrating right upper quadrant post-surgical | | changes. No evidence of recurrent neoplasm. Interval development | | of a small hernia containing bowel and fat 3 cm above the | | umbilicus.16. Repeat CT scan of the abdomen and pelvis on | | 12/22/2015 at the [facility] in [place], [place], | | demonstrating a 1.5 cm soft tissue nodule just inferior to the | | liver within the mesentery on the right. In addition, there were | | tiny nodules in the bilateral upper quadrants.17. PET CT scan at | | [facility] in [place], [place], on 12/31/2015 | | demonstrating benign [...] 2016, at [facility] in [facility] | | [place], demonstrated no evidence of recurrence or metastatic | | disease. Aura continued on observation without treatment.23. | | Repeat CT scan of the chest/abdomen/pelvis at [facility] demonstrated progression of disease and | | [...] will see Dr. Richie Thayer at the [facility] | [facility] [place]. | + + + + + | [...] | | | + +--------+ +--------+-------+---------+ | [facility] | IHS | xxxxxxxxx | Indemn [...] | Self | [birth year] | Work: | [address] | | | al/Jaspreet | | 1961 | [phone] | [place] [address] | | | jose alejandro | | | [address] Home: | | | | | | | | | | | | | | [phone] | | | | | | | [phone] | | + +--------+ +--------+ + +
--- OUTSIDE RECORDS SUMMARY | ~2017-05-23 | XMS | Encounter Summary ---
Demographics + + + | Address | [address] | | | [place] [address] | + + + | Home Phone [...] | Author | [facility] | | | and [place] | + + + | Organization | [facility] | | | and [place] | + + + | Address | Unknown | + + + | Phone | Unavailable | + + + Support + + + + + | Name | Relationship | Address | Phone | + + + + + | oPncho Oquendo | ECON | [address] | | | | | [place] | | | | | [address] | | + + + + + | Marta Upton | ECON | [place] | | | | | [address] | | + + + + + Care Team Providers + +------+ + | Care Transportation Clerk Name | Role | Phone | [...] | ONCOLOGY CLINIC [address] | [facility] | | | | | [address] [facility] | [place] [address] | | | | | [place] [address] | [phone] | | | | | [phone] | | | +--------+ + + + [...]
--- OUTSIDE RECORDS SUMMARY | ~2017-05-23 | XMS | Clinical Summary ---
Demographics + + + | Address | [address] | | | [place] [address] | + + + | Home Phone [...] | Author | [facility] | | | and [place] | + + + | Organization | [facility] | | | and [place] | + + + | Address | Unknown | + + + | Phone | Unavailable | + + + Support + + + + + | Name | Relationship | Address | Phone | + + + + + | Poncho Oquendo | ECON | [address] | | | | | [place] | | | | | [address] | | + + + + + | Marta Corbin | ECON | [place] | | | | | [address] | | + + + + + Care Team Providers + +------+ + | Care Bottom Wheeler Name | Role | Phone | + [...] | | written pain management agreement/narcotic contract. [[facility] | | Health and Services Provider Handbook [...] Garcia on | | 03/29/2012. Pathological specimen [id number] was analyzed by | | Liu Bowers M.D. of [place] and was notable | | for a poorly-differentiated adenocarcinoma of the gallbladder. | | Liver biopsy was performed at the same time of the procedure and | | demonstrated portal inflammation.2. On 04/26/2012, she | | successfully underwent a R0 resection by Dr. Tai Stanton, of | | the [facility] [place] [facility]. Pathological specimen | | [id number] was notable for the absence of any residual | | carcinoma within the gallbladder bed; however, 2/8 regional lymph | | nodes were positive for regionally metastatic disease.3. | | Consultation with Dr. Elva Grey of the [facility] and | | [facility] on 05/17/2012, which returned the | [...] Henderson of the | | [facility] and [facility] [place]. Pathological analysis from | | this surgery [...] was analyzed by the | | [facility] "GeneTrails" solid tumor | | panel and was positive for a mutation of MSH2 and positive for a | | mutation of the P53 gene. However, 122 of the remaining genes | | analyzed in the assay were all wild type.7. Repeat consultation | | with Dr. Elva Grey of the [facility] | | on 06/26/2014 returned the recommendation for additional | | chemotherapy with cisplatin at 75 mg/m2 on day 1 with gemcitabine | | at 1250 mg/m2 on day-1 and day-8 of the every 21-day cycle for | | 6-8 cycles. This was followed by a second opinion by Dr. Quiroz | | Jeovany of the [facility] [place] who recommended | | chemotherapy with cisplatin [...] recommendations of Dr. Richie Thayer of the [facility] | | [place] with gemcitabine at 1000 mg/m2 on day-1 and day-8 with | | cisplatin 25 mg/m2 on day-1 and day-8 of the every 21-day cycle, | | beginning on 07/26/2014. Chemotherapy was complicated by grade 3 | | neutropenia without fever a grade 3 thrombocytopenia without | | bleeding.10. Repeat CT scan of the abdomen and pelvis on | | 09/16/2014 at the [facility] in [facility] | | [place], demonstrated stable postoperative changes involving | | [...] the chest, abdomen, and pelvis at the [facility]. | | [facility] in [place], [place], | | demonstrated stable postoperative changes [...] abdomen, and | | pelvis at the [facility] in [place], [place], on | | 06/23/2015 demonstrating postoperative changes in the right upper | | quadrant. No evidence of recurrence or any evidence of | | metastatic disease.15. Repeat CT scan of the chest, abdomen, and | | pelvis at the [facility] in [place], [place], on | | 09/24/2015 demonstrating right upper quadrant post-surgical | | changes. No evidence of recurrent neoplasm. Interval development | | of a small hernia containing bowel and fat 3 cm above the | | umbilicus.16. Repeat CT scan of the abdomen and pelvis on | | 12/22/2015 at the [facility] in [place], [place], | | demonstrating a 1.5 cm soft tissue nodule just inferior to the | | liver within the mesentery on the right. In addition, there were | | tiny nodules in the bilateral upper quadrants.17. PET CT scan at | | [facility] in [place], [place], on 12/31/2015 | | demonstrating benign findings. The nodularity along the omental | | fat along the left colon and liver tail showed no abnormal | | uptake.18. Presentation to the [facility] Emergency | | Room on 03/15/2016 [...] | Repeat CT scan of C/A/P at [facility] on July 01, 2016 | | [...] | | contrast, October 06, 2016, at [facility] in [facility] | | [place], demonstrated no evidence of recurrence or metastatic | | disease. Aura continued on observation without treatment.23. | | Repeat CT scan of the chest/abdomen/pelvis at [facility] demonstrated progression of disease and | | [...] will see Dr. Richie Thayer at the [facility] [place]. 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
--- OUTSIDE RECORDS SUMMARY | ~2017-05-23 | XMS | Encounter Summary ---
Demographics + + + | Address | [address] | | | [place] [address] | + + + | Home Phone [...] | Author | [facility] | | | and [place] | + + + | Organization | [facility] | | | and [place] | + + + | Address | Unknown | + + + | Phone | Unavailable | + + + Support + + + + + | Name | Relationship | Address | Phone | + + + + + | Poncho Oquendo | ECON | [address] | | | | | [place] | | | | | [address] | | + + + + + | Marta Upton | ECON | [place] | | | | | [address] | | + + + + + Care Team Providers + +------+ + | Care Shotgun Shell Reprinting Unit Operator Name | Role | Phone | [...] [address] [place] | | | | | [place], | [place] [address] | | | | | [place] [address] | [phone] | | | | | [phone] | | | +--------+ + + + [...]
--- OUTSIDE RECORDS SUMMARY | ~2017-05-23 | XMS | Clinical Summary ---
Demographics + + + | Address | [address] | | | [place] [address] | [...] Providers + +------+ + | Care Disability Rater Name | Role | Phone | + +------+ + | Valeriy Carmona MD | PP | Unavailable | + +------+ + Source Comments GWEN is fully live on both EpicCare Ambulatory and EpicCare InPatient.[facility] Allergies + + + + [...]
--- OUTSIDE RECORDS SUMMARY | ~2017-05-23 | XMS | Encounter Summary ---
Demographics + + + | Address | [address] | | | [place] [address] | + + + | Home Phone [...] | Author | [facility] | | | and [place] | + + + | Organization | [facility] | | | and [place] | + + + | Address | Unknown | + + + | Phone | Unavailable | + + + Support + + + + + | Name | Relationship | Address | Phone | + + + + + | Poncho Oquendo | ECON | [address] | | | | | [place] | | | | | [address] | | + + + + + | Marta Upton | ECON | [place] | | | | | [address] | | + + + + + Care Team Providers + +------+ + | Care Dinkey Mechanic Name | Role | Phone | [...] 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, | [place]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 | MD [address] | [place] [address], | | | | | (HCC) | [address] | [place] [address] | | | | | Procedures | [place], | Phone: | | | | | [place] | [place] [address] | [phone] | | | | | DIPHENHYDRAM | Phone: | Fax: | | | | | [facility] | [phone] | [phone] | | | | | INJECTIO, [address] | Fax: | | | | | | [place] | [phone] | | | | | | O[place] [...] | | | | | | [place] | | | | | | [...] | | | | | [address] [place] | | | | | | | CISPLATIN 10 | | | | | | | MG | | | | | | | INJECTION | | | | | | | [place] | | | | | | [...] | | | | | | [place]CG [place] | | | | | | [...] + | 05/20/ | Hospital | [facility] | Vladimir Robles, | Gallbladder cancer, | | 2017 | Encounter | MED CTR CHEMO | MD | carcinoma (HCC) | | | | INFUSION [address] | | | | | | [place], | | | | | | [place] [address] | | | | | | [phone] | | | +--------+ + + + [...] stable c ondition to follow up in [place] as scheduled.in this encounter Plan of Treatment [...]
[~2017-05-23 00:37] MED LIST changes: +DILAUDID2 MG PO; +PROMETHAZINE HC25 M1 PO
--- NOTE | 2017-05-25 08:57 | CONS ---
[facility] [address], [place] [address] Signed DATE OF CONSULTATION: 05/23/2017 CHIEF COMPLAINT: Nausea and vomiting. HISTORY OF PRESENT ILLNESS: Aura is a 56-year-old female, who just over five years ago came to us for routine gallbladder surgery. Unfortunately, she had a 1 cm gallbladder cancer. She has been through her surgery, and radiation and chemotherapy. She also had a hysterectomy and found in her ovary. She has been through several rounds of additional chemotherapy as the cancer has come back. On this occasion, she came to emergency room with nausea and vomiting. The CT scan showed mets in both sides of the liver with mets in her mesentery and ascites in the pelvis and some thickening in her antrum. We could also see the double-J stent in her left ureter associated with hydronephrosis and hydroureter. She does have a ventral hernia, but it has been there for quite some time. Given that finding, I was called to ask it to admit Aura from the ER. She told me that she just went through another initiation of chemo just a few days ago. Her white count was up because of the Neupogen she was given. Otherwise, she has been feeling better once the NG tube was placed and large amounts of fluid were collected from her stomach. ALLERGIES: Sulfa drugs. MEDICATIONS: Lorazepam and hydrocodone. PAST MEDICAL HISTORY: Tinnitus, perforated nasal septum in 2008, cholelithiasis, osteoarthritis, low back pain, migraine headaches, and gallbladder cancer in March 2012. PAST SURGICAL HISTORY: Colonoscopy in July 2013, laparoscopic cholecystectomy with cholangiogram and liver biopsy back in 2012. She has had D and C's for two miscarriages. She has had a hysterectomy with one of her ovary removed in 2014, tubal ligation was in 2002, in 1998, knee surgery in 2013, her liver surgery with removal of the lymph nodes around the estevan hepatis in [address] Tai Stanton at [facility]. SOCIAL HISTORY: She likes to drink coffee. She does not smoke. She quit smoking back in 2006. She does not drink. She does not use drugs. Her primary care physician Dr. Ashley Carmona. Dr. Epifanio Najera is her medical oncologist. Dr. Tai Stanton was her Electronically Signed By: JOSE MANUEL DUBON MD 05/25/17 0857 PATIENT NAME: AURA CORBIN CONSULTATION DATE OF : 62 REPORT #: [id number] PHYSICIAN: JOSE MANUEL DUBON MD PCP: ASHLEY CARMONA MD REPORT IS CONFIDENTIAL AND NOT TO BE RELEASED WITHOUT AUTHORIZATION [facility] [address] [place] [id number] Signed Hepatobiliary Surgeon. FAMILY HISTORY: No reaction to anesthetics. No family history of colon cancer or polyps. Dad had heart bypass surgery in 2007. Mom has no history of cancer. REVIEW OF SYSTEMS: She had 10 systems reviewed and of course, she has talked about her fatigue and some abdominal pain. She has had a little memory loss, I think from the chemo. A little anxiety and depression. I can see she has lost a 3rd, maybe half of her body mass. PHYSICAL EXAMINATION: VITAL SIGNS: Her blood pressure 146/83, heart rate 95, respiratory rate 13, temperature is 98.3. She is 95% on room on room air. GENERAL: Aura is a 56-year-old female, who is lying supine in her hospital bed. The nurse is with me today. I can see she has lost quite a bit of muscle mass, although she still has decent functional status. LUNGS: Clear to auscultation. HEART: Regular rate and rhythm. ABDOMEN: Generally soft and flat after the NG tube, however, she is just mildly tender throughout. I could appreciate the ventral hernia on top. We made no efforts to reduce that. LABORATORY DATA: Her white blood count is 21,000, hemoglobin 10.9, neutrophils 92, BUN 34, creatinine 1.1, AST 57, albumin 3.1. Urinalysis showed some squamous cells. RADIOGRAPHIC STUDIES: The CT scan showed the liver METS on both sides of the liver along with the left-sided hydronephrosis and hydroureter associated with the double-J stent placed by Dr. Cristela Maldonado. She has fluid in the stomach of the small bowel. We could see the ventral hernia and the fluid in the pelvis and what looks like quite a bit of tumor in the mesentery and some ill-defined mass in the antrum. ASSESSMENT AND PLAN: Aura is a 56-year-old female, who presents with a five year history of gallbladder cancer. We commended her on that, that is an incredible feet in and of itself. However, she has quite a burden of metastatic disease at this point. Her chemotherapy just started a few days ago and now she is with a bowel obstruction. Hopefully, it will resolve in a few days. On this occasion, she is not as interested in surgery. I had a long discussion with Aura and nurse and then later her mother, and later after that we had our Internal Medicine physician see her as well. I think Aura is very aware of her current situation. She wants to try conservative therapy to see how her bowels respond and will proceed from there. She has expressed understanding, agrees to above Electronically Signed By: JOSE MANUEL DUBON MD 05/25/17 0857 PATIENT NAME: AURA CORBIN CONSULTATION DATE OF : 62 REPORT #: [id number] PHYSICIAN: JOSE MANUEL DUBON MD PCP: ASHLEY CARMONA MD REPORT IS CONFIDENTIAL AND NOT TO BE RELEASED WITHOUT AUTHORIZATION [address] [place], [place] [address] Signed plan. Jose Manuel Dubon MD ALB/MODL /[id number] cc: MD Epifanio Dela Cruz, MD Jose Manuel Dubon MD Copies: ASHLEY CARMONA MD, ROBERT C MD BOWER, ANDREW L MD ~ Electronically Signed By: JOSE MANUEL DUBON MD 05/25/17 0857 PATIENT NAME: AURA CORBIN CONSULTATION DATE OF : 62 REPORT #: [id number] PHYSICIAN: JOSE MANUEL DUBON MD PCP: ASHLEY CARMONA MD REPORT IS CONFIDENTIAL AND NOT TO BE RELEASED WITHOUT AUTHORIZATION
[2017-05-25] MEDS ORDERED: OXYCODONE HCL10 MG PO (16:33)
[2017-05-25] MEDS ORDERED: DEXAMETHASONE4 MG PO (16:36)
[2017-05-25] MEDS ORDERED: ONDANSETRON HCL8 MG PO (16:40)
--- NOTE | 2017-06-07 07:48 | DS ---
[facility] [address] [place], [place] [address] Signed ADMISSION DATE: 05/24/2017 DISCHARGE DATE: 05/29/2017 FINAL DIAGNOSES: 1. Resolved partial small bowel obstruction. 2. Stage IV gallbladder cancer. PROCEDURES: CT scan of abdomen and pelvis. HISTORY OF PRESENT ILLNESS: Aura is a 56-year-old female first diagnosed with gallbladder cancer back in March 2012 during a routine laparoscopic cholecystectomy for symptomatic cholelithiasis. She has been through her liver resection and lymph node dissection along with chemotherapy and radiation therapy. Overall, she has done exceptionally well and is with this 5 years later, she did have a hysterectomy and they found her current gallbladder cancer on the ovary. Apparently, she has been through a couple more rounds of chemo from what she told me. On this occasion, she was having symptoms of a small bowel obstruction and came through the emergency room. The CT scan showed metastatic disease in both sides of the liver with METS in her mesentery and malignant ascites in the pelvis and some thickening in her antrum. I have been asked to admit her as a general surgeon on-call. HOSPITAL COURSE: Aura was admitted as above and we placed an NG tube, gave her IV fluids and pain medication. We withheld her antibiotics. She had just received an initial starting dose of chemotherapy, I think was 2 or 3 days prior to admission. Consequently, her white count got up and down. After a few days, she began to resolve the bowel obstruction improved and so we let her have clear liquids and eventually full liquids, and she was feeling much better. We decided after multiple discussions with Aura per myself and Dr. Hassan, our hospitalist as well as our discharge planners that she would be discharged to home. We did talk to Aura about hospice and I do not think she is quite ready for to accept that just yet. She had told us she wanted to wait and talk to her 18-year-old son before she made that final decision. We spent quite a bit of time with Aura, her mother and her Poncho. DISCHARGE PLANS AND MEDICATIONS: Aura will be discharged to home with no new medications. She should follow a soft diet. Of course, if she feels obstruction, she should cut back to a liquid diet and if it does not improve, she is more than welcome to return to the hospital. She is going to follow up with my office on an as-needed basis. She will continue her routine followup Electronically Signed By: JOSE MANUEL DUBON MD 06/07/17 0748 PATIENT NAME: AURA CORBIN DISCHARGE SUMMARY DATE OF : 62 REPORT #: [id number] PHYSICIAN: JOSE MANUEL DUBON MD PCP: ASHLEY BAY MD REPORT IS CONFIDENTIAL AND NOT TO BE RELEASED WITHOUT AUTHORIZATION [address] [address] Signed with her medical oncologist. She has expressed understanding and agrees to above plan. MD VIVIANE Crawford/LISAL /[id number] cc: MD Jose Manuel Alba MD Rex Quaempts, MD Copies: CHAD RIGGINS MD,ASHLEY PIMENTEL MD, MD ~ Electronically Signed By: JOSE MANUEL DUBON MD 06/07/17 0748 PATIENT NAME: AURA CORBIN DISCHARGE SUMMARY DATE OF : 62 REPORT #: [id number] PHYSICIAN: JOSE MANUEL DUBON MD PCP: ASHLEY BAY MD REPORT IS CONFIDENTIAL AND NOT TO BE RELEASED WITHOUT AUTHORIZATION
[2017-06-17] MEDS ORDERED: MORPHINE IV (09:03)
[2017-06-17] MEDS ORDERED: DEXAMETHASONE4 MG PO (09:04)
[2017-07-01] MEDS ORDERED: DILAUDID 22 MG/1 M1 (10:21)
[2017-07-01] MEDS ORDERED: FENTANYL1 EAC3 TD (10:23)
[2017-07-22] MEDS ORDERED: DILAUDID2 MG PO (09:47)
== END 2017-05-29 17:45 | disposition home or self-care (01) | DRG 389 ==
LOC: ED 00:37 → MS 06:54 → ED 06:54 → MS 06:54
PROVIDERS: ADMIT Colon & Rectal Surgery
DX: K56.51 Intestinal adhesions [bands], with partial obstruction (principal); C23 Malignant neoplasm of gallbladder; C78.7 Secondary malignant neoplasm of liver and intrahepatic bile duct; C78.6 Secondary malignant neoplasm of retroperitoneum and peritoneum; N13.30 Unspecified hydronephrosis; G89.3 Neoplasm related pain (acute) (chronic); Z87.891 Personal history of nicotine dependence
CPT/HCPCS: 43752; 71045; 74019; 74177; 80048; 80053; 81001; 83690; 83735; 84100; 84134; 85025; 96372; 96374; 96375; 96376; 99285; G0378; J1170; J1644; J2270; J2405; J2550; J2765; J2997; J3475; J3480; J7030; J7040; J7120; Q9967

== ENCOUNTER 2017-06-03 10:21 | Day surgery (SDC) | payer BC, OTHER ==
[~2017-06-03] VITALS: Ht 160 cm; Wt 65.3 kg
[~2017-06-03 10:21] MED LIST changes: +DEXAMETHASONE4 MG PO; +ONDANSETRON HCL8 MG PO; +OXYCODONE HCL10 MG PO
[2017-06-03] MEDS ORDERED: FENTANYL1 EAC1 TD (11:04)
--- NOTE | 2017-06-03 13:02 | NUR ---
FIRST DOSE DILAUDID GIVEN ABLE TO DOSE OFF. NO RELIEF FROM NAUSEA DECLINES TO HAVE NAUSEA RX. PAIN WENT DOWN TO 6? NOW AT 7/10 DILAUDID GIVEN AGAIN. PER REQ.
--- NOTE | 2017-06-03 13:47 | NUR ---
REQ MORE PAIN RX. 0.4 MG GIVEN LAST DOSE DIDNT WORK WELL. DILAUDID 0.6MG GIVEN THIS TIME.
--- NOTE | 2017-06-03 14:03 | NUR ---
VISITED WITH PT'S MOTHER AND SISTER JOE. PT'S PROCEDURE HAS BEEN BACKED UP DUE TO JOSEY SURGERY. KEPT FAMILY UPDATED, WILL FOLLOW NEEDED
--- NOTE | 2017-06-03 17:04 | NUR ---
06/03/17 1704 Sonia Hamilton 1700 PATIENT UNRESPONSIVE TO PAIN OR VERBAL STIMULI. RESP EVEN AND UNLABORED. ORAL AIRWAY IN PLACE. MASK AT 10 LITERS.
--- NOTE | 2017-06-03 18:44 | NUR ---
AT 1815 PATIENT ARRIVED TO ROOM 114 WITH MARK GARNICA FROM DAY SURGERY. REPORT RECEIVED. PATIENT SLEEPY BUT INTERACTIVE AND ALERT/ORIENTED FAMILY WITH HER AT BEDSIDE.
--- NOTE | 2017-06-03 19:20 | NUR ---
ROUNDED CHARGE. PATIENT IS RESTING IN BED WITH EYES CLOSED. PULSE OX READINGS ARE WNL. FAMILY AT THE BEDSIDE. NO NEEDS NOTED BY THE FAMILY. CALL LIGHT IN REACH.
--- NOTE | 2017-06-03 19:22 | NUR ---
PORT WAS ACCESSED WHEN PATIENT ARRIVED TO MED/SURG DEPARTMENT.
--- NOTE | 2017-06-03 20:24 | NUR ---
VITALS AND I&OS DONE AND CHARTED. BEDSIDE TABLE AND CALL LIGHT WITHING REACH. PT NEEDS NOTHING ELSE AT THIS TIME.
--- NOTE | 2017-06-03 21:29 | NUR ---
VITALS DONE AND CHARTED. WARM BLANKET GIVEN TO HER PER HER REQUEST. BEDSIDE TABLE AND CALL LIGHT WITHIN REACH. PT NEEDS NOTHING ELSE AT THIS TIME.
--- NOTE | 2017-06-03 22:00 | NUR ---
PEG-TUBE IS DRAINING WELL WITH BAG SET TO GRAVITY. PT IS DRINKING FLUIDS AND TOLERATING WELL. FLUIDS OF COURSE COME OUT OF THE PEG-TUBE. V/S ARE WDL, ALL LOBES ARE CLEAR, ABD SOUND ARE PRESENT, PT IS POSITIVE FOR PASSING FLATUS. TRACE EDEMA IN LEFT LOWER LEG. PAIN SO FAR IS WELL CONTROLLED WITH PRN PAIN MEDS. WHARF TENDER HEAD IS IN USE DUE TO PAIN MEDICATIONS AVAILABLE. PT SEEMS IN DENIAL ABOUT HER CONDITION AT TIMES.
--- NOTE | 2017-06-03 22:46 | NUR ---
PER PT REQUEST I TOOK HER SOME ICE WATER AND ICE IN A CUP.
--- NOTE | 2017-06-03 22:53 | NUR ---
RECEIVED REPORT AT 1900, FOUND PT IN BED SLEEPING. DAY RN AND I ATTACHED DRAINAGE BAG TO PEG-TUBE. EDUCATION WITH FAMILY WILL BE DONE IN THE MORNING. PT DENIED PAIN AND HAD NO OTHER NEEDS AT THAT TIME.
--- NOTE | 2017-06-03 22:53 | NUR ---
PER REQUEST OF PT I BROUGHT HER A WARM BLANKET. SHE NEEDS NOTHING ELSE AT THIS TIME.
--- NOTE | 2017-06-04 | NUR ---
PT PAIN IS 9/10. DILAUDED 0.6MG WAS GIVEN. PT ALSO HAD A FENTANYL PATCH IN HER PURSE WHICH I TOOK FROM HER AND STAMPING DIE TRY OUT WORKER IS LOCKING IT UP UNTIL PT IS D/C. PAIN CONTROL SEEMS TO BE THE MAIN ISSUE THIS SHIFT.
--- NOTE | 2017-06-04 02:00 | NUR ---
PT IS STILL AWAKE IN BED. PAIN IS A 6/10, DILAUDED 0.6MG WAS GIVEN AGAIN. PEG-TUBE WAS FLUSHED WITH 40ML OF TAP WATER. PEG-TUB IS PATENT. ALL LOBES ARE CLEAR, ABD SOUNDS ARE PRESENT AND PT IS PASSING GAS. NO NEW CONCERNS AT THIS TIMES.
--- NOTE | 2017-06-04 02:18 | NUR ---
VITALS AND I&OS DONE AND CHARTED. BEDSIDE TABLE AND CALL LIGHT WITHIN REACH. PT NEEDS NOTHING ELSE AT THIS TIME.
--- NOTE | 2017-06-04 04:00 | NUR ---
PT IS AWAKE IN BED. PT IS MILDLY ANXIOUS AT THIS TIME. PT IS HAVING TROUBLE COPING WITH HER PRESENT SITUATION AND WHAT IS TO COME. I TALKED TO PT FOR ABOUT 15MIN AND TRIED TO SETTLE HER EMOTIONAL CONCERNS SOME. PT AT THIS TIME IS READING SOME MAGAZINES.
--- NOTE | 2017-06-04 04:56 | NUR ---
PT HAS NOT SLEPT ALL NIGHT. PAIN CONTROL WAS AN ISSUE AT START OF SHIFT. AT THIS TIME PT STATES THAT PAIN IS TOLERABLE. V/S ARE WDL OVERALL SO FAR. PT WAS TACHY AT START OF SHIFT WITH A HR 100-110. PT REMAINS ON 2L NC O2. ALL LOBES ARE CLEAR ABD SOUNDS ARE PRESENT AND PT IS PASSING GAS. URINE OUTPUT SO FAR IS ADEQUATE. PT NEEDS TO VOID BEFORE 0700 AGAIN. PT HAD ABOUT 175ML OF ENSURE WITHIN THE TIME FRAME OF ABOUT AN HOUR. PEG-TUBE WAS CLAMPED AT THAT TIME. PT WAS UNABLE TO TOLERATE THIS AMOUNT WITHOUT DISCOMFORT. I AM NOT SURE HOW WELL SHE WILL TOLERATE A SOFT DIET ORDERED. I INSTRUCTED PT TO ONLY DRINK SMALL AMOUNTS AND TO WAIT FOR A MIN. ON 30MIN BETWEEN SIPS. PT HAS A LOT OF ANXIETY OVER HER CURRENT SITUATION AND WHAT IS TO COME FOR HER. I TALKED TO HER AND TRIED TO EASE HER FEARS SOME. PEG-TUB WAS FLUSHED AT 0200 WITH 40ML OF TAP WATER. FAMILY NEEDS TO BE EDUCATED BEFORE D/C ABOUT TUBE CARE AND PURPOSE AND SO DOES THE PT. PT BROUGHT A FENTANYL PATCH FROM HOME AND HAD IT IN HER PURSE. AT THIS TIME IT IS LOCKED IN THE EMPLOYMENT CONSULTANT MANDY UNTIL PT GOES HOME.
--- NOTE | 2017-06-04 07:48 | NUR ---
BEDSIDE REPORT RECEIVED FROM IGNACIO GARNICA. WHITE BOARD UPDATED WELL QUESTIONS ADDED TO ASK DR SAVAGE WHEN HE ARRIVES. PATIENT AWAKE AND SITTING UP IN BED. PEG TUBE DRAINING ORANGE LIQUID. FENTANYL PATCH ON LEFT SHOULDER. D5LR @ 85 INFUSING INTO BIANKA PORTACATH SITE. PT REFUSED SCDs OVERNIGHT. DELIVERY DIRECTOR PROVIDING TEA AND JELLO NOW. REMINDED TO MOVE SLOW.
--- NOTE | 2017-06-04 08:00 | NUR ---
PATIENT SITTING UP IN BED ON PHONE. FRESH ICE. PATIENT STATED THAT SHE HAD SOME QUESTIONS ABOUT HER PEG TUBE. RN NOTIFIED. WARM BLANKET. CALL LIGHT WITHIN REACH. NO OTHER NEEDS AT THIS TIME.
--- NOTE | 2017-06-04 09:09 | NUR ---
PT LYING AWAKE IN BED. MOTHER AT BEDSIDE. MIXED CROP AND LIVESTOCK FARMER GETTING VITAL SIGNS. DRAIN BAG ON LEFT SIDE DRAINED AT 0815 BY MIXED CROP AND LIVESTOCK FARMER. 450ML OF ORANGE LIQUID.
--- NOTE | 2017-06-04 09:13 | NUR ---
PATIENT SITTING UP IN BED. PATIENTS MOTHER IN ROOM. CALL LIGHT WITHIN REACH. NO OTHER NEEDS AT THIS TIME.
--- NOTE | 2017-06-04 10:41 | NUR ---
AT 1015 THIS RN PROVIDED EDUCATION ON HOW TO FLUSH PEG TUBE. 40ML TAP WATER INFUSED THROUGH TUBE. BAG REATTACHED AND CLEAR/PINK THIN DRAINAGE WITH "SEDIMENT" TYPE LIQUID DRAINING INTO BAG NOW. "SEDIMENT" LIKELY FROM JELLO THAT PATIENT CONSUMED. WILL PROVIDED EDUCATION TO FAMILY MEMBERS AND PATIENT AGAIN BEFORE DISCHARGE.
[2017-06-04] MEDS ORDERED: FENTANYL1 EAC2 TD (12:36)
--- NOTE | 2017-06-04 13:08 | NUR ---
education provided again to and patient on how to flush, change, and drain peg tube bag. extra supplies (2 graduated cylinders, 60ml syringe, and cath bag) provided for patient to take home. 75mcg fentanyl patch applied to right deltoid. patient educated to let staff know when she was ready to discharge home.
--- NOTE | 2017-06-04 13:48 | NUR ---
RN IN ROOM.
[2017-06-05] MEDS ORDERED: HYDROMORPHONE HC2 MG PO (21:32)
--- NOTE | 2017-06-07 11:56 | OR ---
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 PROCEDURE: Palliative PEG tube placement (percutaneous endoscopic gastrostomy). ANESTHESIA: General endotracheal, Keturah Cha CRNA. INDICATION: This is a very pleasant 56-year-old [place] woman, has end-stage cholangiocarcinoma and has been admitted previously for incomplete bowel obstruction considered related to carcinomatosis from progressive cholangiocarcinoma. She has had variable benefit from palliative chemotherapy over time. She is familiar to me from the past having undergone placement of a left subclavian Port-A-Cath device for chemotherapeutic agents. Dr. Riggins, her oncologist has referred her for consideration of a palliative decompressive PEG tube so as to vent the stomach of accumulating secretions as needed. The patient has a fair amount of pain associated with her disease and is on fentanyl patch currently. A CT scan performed in April and 1 subsequently in May confirms multiple hepatic lesions as well as intraperitoneal lesions. There is a hernia of the abdominal wall, cephalad to the umbilicus, but this does not cause bowel obstruction at this point. The patient has had intractable nausea and vomiting related to the obstructive process and a palliated decompressive PEG tube is deemed helpful in assistance of her overall comfort and care. The risks of bleeding, infection, misplacement of the device, malfunction of the device, and other unforeseen complications were reviewed with the patient and her family and they wished to proceed. SPECIAL NOTE: Consideration is made for possible open procedure. She does have a bilateral (chevron) type incision in the upper abdomen as well as the midline incision and the window for Electronically Signed By: KETURAH SAVAGE MD 06/07/17 8459 PATIENT NAME: MARIA ELENA CORBIN OPERATIVE REPORT DATE OF : 62 REPORT #: [id number] PHYSICIAN: KETURAH SAVAGE MD PCP: ASHLEY BAY MD REPORT IS CONFIDENTIAL AND NOT TO BE RELEASED WITHOUT AUTHORIZATION [facility] [address] [place] [id number] Signed entry to the stomach is somewhat more limited than in the past rather than in other similar situations. This is based on evaluation of the CT scan. Thus, if a PEG tube is deemed inadvisable at the time of procedure, conversion to open decompressive gastrostomy will be undertaken. FINDINGS: Good transillumination of the abdominal wall was noted with the endoscope assuring high level of success for conventional PEG tube placement. An open operation was not required. Evaluation of the esophagus and stomach showed a fair amount of gastric contents (liquid bilious fluid), nearly 700 mL were decompressed ultimately. She had market and severe esophagitis, likely related to regurgitation of bilious contents. She had no stricture. Placement of the PEG tube was without complication in the region of the antrum and flushes easily and shows no sign of known complication. DESCRIPTION OF PROCEDURE: The patient was brought to the operating room, given a general endotracheal anesthetic on the basis of probability of converting to open gastrostomy of at least 50%. She remained in the supine position. A bite block was placed. An Olympus video upper endoscope was passed in the hypopharynx where some bilious fluid was noted in the hypopharyngeal tissues. The endotracheal tube was well positioned. The scope was advanced to the esophagus without problem. There was marked inflammatory change throughout the esophagus, likely related to bile reflux esophagitis. The scope was passed to the stomach where a considerable amount of bilious fluid was noted. This was suctioned free ultimately. The scope was then passed to the antrum and pylorus and there appear to be no sign of neoplasm or obstruction there. Retroflexed view was undertaken showing the GE junction and fundus of the stomach to have a fair amount of bilious fluid. This too was suctioned free. Scope was withdrawn to the mid portion of the stomach and palpation along the left costal margin undertaken with the index finger demonstrating direct impression of the stomach. Examination in the darkened room showed transillumination thus making the probability of PEG tube placement more possible despite previous scar tissue and so forth. On that basis, decision was made to proceed with PEG tube instead of open gastrostomy. The area in question in the subcostal left side was prepared widely with chlorhexidine solution and draped sterilely. 2% technique of management of the PEG tube was undertaken. A small incision was made in the area of transillumination and obvious Electronically Signed By: KETURAH SAVAGE MD 06/07/17 1156 PATIENT NAME: MARIA ELENA CORBIN OPERATIVE REPORT DATE OF : 62 REPORT #: [id number] PHYSICIAN: KETURAH SAVAGE MD PCP: ASHLEY BAY MD REPORT IS CONFIDENTIAL AND NOT TO BE RELEASED WITHOUT AUTHORIZATION [address] [address] Signed impression on the stomach, which proved to be in the left subcostal area, not far from the subcostal incision. An #11 blade was used to make the incision. Using the catheter kit (Bard type) needle, the needle was passed through the incision through the anterior abdominal wall of the stomach. The obturator was removed and a flexible J-wire passed down the needle. The wire was grasped with the endoscope and snare and gently withdrawn out through the oropharynx. The wire was then carefully passed through the trach and a Bard button type gastrostomy tube passed over the wire until it emerge from the incision itself and then it was pulled over the wire with gentle care and lubrication to the device through the oropharynx and out the abdominal wall. It appeared to be snug at about 6 cm in depth. Reinspection of the stomach was undertaken with an endoscope showing optimal placement of the device. The device was snugged up against stomach wall to allow for scarring, but not so tight as to provide any ischemia. The device was flushed with water when the tube was trimmed. The usual flange was applied to the tube and some Betadine ointment applied to the site of the tube that emanated from the abdominal wall. A single 0 Nylon tie was used to secure the flange to the tube more fully. The tube was trimmed to the appropriate length and a connector applied to it. The endoscope was then positioned to allow for visualization of flushing of the tube, which appeared to be quite optimal. The scope was then removed and the patient was taken to recovery room after a sterile gauze dressing applied as well as silk tape. BLOOD LOSS: 20 cc or so. Sponge, needle, and instrumental counts were reported as correct x3. MD HILARIO Xavier/JE /[id number] cc: Chad Riggins MD Copies: CHAD RIGGINS MD Electronically Signed By: KETURAH SAVAGE MD 06/07/17 1156 PATIENT NAME: GRIFFIN CORBINUREEN OPERATIVE REPORT DATE OF : 62 REPORT #: [id number] PHYSICIAN: KETURAH SAVAGE MD PCP: ASHLEY BAY MD REPORT IS CONFIDENTIAL AND NOT TO BE RELEASED WITHOUT AUTHORIZATION [address] [address] Signed ~ Electronically Signed By: KETURAH SAVAGE MD 06/07/17 1156 PATIENT NAME: GRIFFIN CORBINUREEN OPERATIVE REPORT DATE OF : 62 REPORT #: [id number] PHYSICIAN: KETURAH SAVAGE MD PCP: ASHLEY BAY MD REPORT IS CONFIDENTIAL AND NOT TO BE RELEASED WITHOUT AUTHORIZATION
[2017-06-17] MEDS ORDERED: MORPHINE IV (09:03)
[2017-06-17] MEDS ORDERED: DEXAMETHASONE4 MG PO (09:04)
[2017-07-01] MEDS ORDERED: DILAUDID 22 MG/1 M1 (10:21)
[2017-07-01] MEDS ORDERED: FENTANYL1 EAC3 TD (10:23)
[2017-07-22] MEDS ORDERED: DILAUDID2 MG PO (09:47)
== END 2017-06-04 13:55 | disposition home or self-care (01) ==
LOC: DS 10:21 → MS 17:58 → DS 06-04 13:55
PROVIDERS: Surgery
PROC: 0DH63UZ Insertion of Feeding Device into Stomach, Percutaneous Approach (ICD-10-PCS; principal; 2017-06-03 13:15)
DX: C22.0 Liver cell carcinoma (principal); K56.699 Other intestinal obstruction unspecified as to partial versus complete obstruction; K21.9 Gastro-esophageal reflux disease without esophagitis; K43.2 Incisional hernia without obstruction or gangrene; F41.9 Anxiety disorder, unspecified; G89.29 Other chronic pain; R51 Headache; Z88.2 Allergy status to sulfonamides; Z79.891 Long term (current) use of opiate analgesic; Z79.899 Other long term (current) drug therapy; Z87.891 Personal history of nicotine dependence
CPT/HCPCS: 85610; J0330; J0690; J1100; J1170; J1720; J1885; J2250; J2270; J2405; J2704; J2765; J3010; J7120

== ENCOUNTER 2017-06-05 21:22 | Inpatient (IN) | payer BC, OTHER ==
[~2017-06-05] VITALS: Ht 160 cm; Wt 64.3 kg
--- OUTSIDE RECORDS SUMMARY | ~2017-06-05 | XMS | Clinical Summary ---
Demographics + + + | Address | [address] | | | [place] [address] | + + + | Home Phone | | + + + | Preferred Language | Unknown | + + + | Marital Status | Single | + + + | Denominational Affiliation | Unknown | + + + | Race | Unknown | + + + | Ethnic Group | Unknown | + + + Author + + + | Author | [facility] | | | and Eduardoana | + + + | Organization | [facility] | | | and Eduardo[place] | + + + | Address | Unknown | + + + | Phone | Unavailable | + + + Support + + + + + | Name | Relationship | Address | Phone | + + + + + | Poncho Oquendo | ECON | [address] | | | | | [place] | | | | | [address] | | + + + + + | Marta Corbin | ECON | [place] | | | | | [address] | | + + + + + Care Team Providers + +------+ + | Care Finishing Pan Operator Name | Role | Phone | [...] | | written pain management agreement/narcotic contract. [[place] | | Health and Services Provider Handbook [...] Garcia on | | 03/29/2012. Pathological specimen [id number] was analyzed by | | Liu Bowers M.D. of [facility] and was notable | | for a poorly-differentiated adenocarcinoma of the gallbladder. | | Liver biopsy was performed at the same time of the procedure and | | demonstrated portal inflammation.2. On 04/26/2012, she | | successfully underwent a R0 resection by Dr. Tai Stanton, of | | the [facility]. Pathological specimen | | [id number] was notable for the absence of any residual | | carcinoma within the gallbladder bed; however, 2/8 regional lymph | | nodes were positive for regionally metastatic disease.3. | | Consultation with Dr. Elva Grey of the [facility] | | [facility] on 05/17/2012, which returned the | [...] Dr. Miguel Henderson of the | | [facility] [place]. 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 However, 122 of the remaining genes | | analyzed in the assay were all wild type.7. Repeat consultation | | with Dr. Elva Grey of the [facility] | | on 06/26/2014 returned the recommendation for additional | | chemotherapy with cisplatin at 75 mg/m2 on day 1 with gemcitabine | | at 1250 mg/m2 on day-1 and day-8 of the every 21-day cycle for | | 6-8 cycles. This was followed by a second opinion by Dr. Quiroz | | Jeovany of the [facility] who recommended | | chemotherapy with cisplatin [...] recommendations of Dr. Richie Thayer of the [facility] | | [place] with gemcitabine at 1000 mg/m2 on day-1 and day-8 with | | cisplatin 25 mg/m2 on day-1 and day-8 of the every 21-day cycle, | | beginning on 07/26/2014. Chemotherapy was complicated by grade 3 | | neutropenia without fever a grade 3 thrombocytopenia without | | bleeding.10. Repeat CT scan of the abdomen and pelvis on | | 09/16/2014 at the [facility] in [facility] | | [place], demonstrated stable postoperative changes involving | | [...] the chest, abdomen, and pelvis at the [facility]. | | [facility] in [place], [place], | | demonstrated stable postoperative changes [...] abdomen, and | | pelvis at the [facility] in [place], [place], on | | 06/23/2015 demonstrating postoperative changes in the right upper | | quadrant. No evidence of recurrence or any evidence of | | metastatic disease.15. Repeat CT scan of the chest, abdomen, and | | pelvis at the [facility] in [place], [place], on | | 09/24/2015 demonstrating right upper quadrant post-surgical | | changes. No evidence of recurrent neoplasm. Interval development | | of a small hernia containing bowel and fat 3 cm above the | | umbilicus.16. Repeat CT scan of the abdomen and pelvis on | | 12/22/2015 at the [facility] in [place], [place], | | demonstrating a 1.5 cm soft tissue nodule just inferior to the | | liver within the mesentery on the right. In addition, there were | | tiny nodules in the bilateral upper quadrants.17. PET CT scan at | | [facility] in [place], [place], on 12/31/2015 | | demonstrating benign findings. The nodularity along the omental | | fat along the left colon and liver tail showed no abnormal | | uptake.18. Presentation to the [facility] Emergency | | Room on [...] | Repeat CT scan of C/A/P at [facility] on July 01, 2016 | [...] | | contrast, October 06, 2016, at [facility] in [facility] | | [place], demonstrated no evidence of recurrence or metastatic | | disease. Aura continued on observation without treatment.23. | | Repeat CT scan of the chest/abdomen/pelvis at [facility] demonstrated progression of disease and | [...] will see Dr. Richie Thayer at the [facility]. 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
--- OUTSIDE RECORDS SUMMARY | ~2017-06-05 | XMS | Encounter Summary ---
Demographics + + + | Address | [address] | | | [place] [address] | + + + | Home Phone [...] Author | [facility] | | | and Eduardoana | + + + | Organization | [facility] | | | and [place]ardo[place] | + + + | Address | Unknown | + + + | Phone | Unavailable | + + + Support + + + + + | Name | Relationship | Address | Phone | + + + + + | Poncho Oquendo | ECON | [address] | | | | | [place] | | | | | [address] | | + + + + + | Marta Upton | ECON | [place] | | | | | [address] | | + + + + + Care Team Providers + +------+ + | Care Network Contract Manager Name | Role | Phone | [...] | | | Q IS OUT- | [id number] | | | | | | PATIENT IS | CONFEDERATED | | | | | | FROM [facility]- | WAY | | | | | | LABS/PORT | [place], | | | | | | [address] | [place] [address] | | | | | | Procedures | Phone: | | | | | | [facility] | [phone] | | | | | | FOLLOW UP | Fax: | | | | | | | [phone] | | +--------+--------+ + + + + Encounter Details +--------+ + + + + | Date | Type | Department | Care Team | Description | +--------+ + + + + | 05/20/ | Hospital | [facility] | Vladimir Robles, | Gallbladder cancer, | | 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 | MED CTR MEDICAL | MD | carcinoma (HCC) | | | | ONCOLOGY CLINIC [address] | | (Primary Dx); Liver | | | | [address] [place] | | metastases (HCC); | | | | [place] [address] | | Stage 3a chronic | | | | [phone] | | kidney disease; | | | [...] different from the original. Hematology-Oncology Progress Note [facility] Pt. Name/Age/: Aura Upton 56 y.o. 1960 CSN: [id number] Date of service: 05/20/2017 Provider: Vladimir Robles [...] adjustment of her ch emotherapy, specifically the cis-napaimute given her renal dysfunction. 1. Proceed with day 1, cycle 1 of dose adjusted cis-napaimute and gemcitabine as ordered. 2. Increase OxyContin [...] nausea, has decided to t ry palliative cis-napaimute/gemcitabine again to which she has responded in the past. Ended up in the emergency room yesterday in [place] with nausea and vomiting, responded to ondan [...] and 6 hour treatment, labs done in [place] ER. My chart: Medications: Current Outpatient Prescriptions [...] this chart may have been created with [employer] voice recognition software. Occasi onal wrong-word or [...]
--- OUTSIDE RECORDS SUMMARY | ~2017-06-05 | XMS | Encounter Summary ---
Demographics + + + | Address | [address] | | | [place] [address] | + + + | Home Phone [...] | Author | [facility] | | | and Eduardo[place] | + + + | Organization | [facility] | | | and Eduardo[place] | + + + | Address | Unknown | + + + | Phone | Unavailable | + + + Support + + + + + | Name | Relationship | Address | Phone | + + + + + | Poncho Oquendo | ECON | [address] | | | | | [place] | | | | | [address] | | + + + + + | Marta Upton | ECON | [place] | | | | | [address] | | + + + + + Care Team Providers + +------+ + | Care Communications Administrator Name | Role | Phone | [...] [address] | | | | | | [place], | | | | | | [place] [address] | | | | | | [phone] | | | +--------+ + + + [...]
--- OUTSIDE RECORDS SUMMARY | ~2017-06-05 | XMS | Encounter Summary ---
Demographics + + + | Address | [address] | | | [place] [address] | + + + | Home Phone [...] | Author | [facility] | | | and Eduardoana | + + + | Organization | [facility] | | | and Eduardo[place] | + + + | Address | Unknown | + + + | Phone | Unavailable | + + + Support + + + + + | Name | Relationship | Address | Phone | + + + + + | Poncho Oquendo | ECON | [address] | | | | | [place] | | | | | [address] | | + + + + + | Marta Upton | ECON | [place] | | | | | [address] | | + + + + + Care Team Providers + +------+ + | Care Canal Driver Name | Role | Phone | [...] [address] [place] | | | | | [place], | [place] [address] | | | | | [place] [address] | [phone] | | | | | [phone] | | | +--------+ + + + [...]
--- OUTSIDE RECORDS SUMMARY | ~2017-06-05 | XMS | Encounter Summary ---
Demographics + + + | Address | [address] | | | [place] [address] | + + + | Home Phone [...] Author | [facility] | | | and Eduardoana | + + + | Organization | [facility] | | | and Eduardo[place] | + + + | Address | Unknown | + + + | Phone | Unavailable | + + + Support + + + + + | Name | Relationship | Address | Phone | + + + + + | Poncho Oquendo | ECON | [address] | | | | | [place] | | | | | [address] | | + + + + + | Marta Upton | ECON | [place] | | | | | [address] | | + + + + + Care Team Providers + +------+ + | Care Accounts Payable Associate Name | Role | Phone | [...] 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, | [address] [place]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 | MD [address] | [place], | | | | | (HCC) | [address] | [place] [address] | | | | | Procedures | [place], | Phone: | | | | | [place] | [place] [address] | [phone] | | | | | DIPHENHYDRAM | Phone: | Fax: | | | | | INE HCL | [phone] | [phone] | | | | | INJECTIO, 50 | Fax: | | | | | | MG [place] | [phone] | | | | | | ONDANSETRON | | | | | | | HCL | | | | | | | INJECTION, 1 | | | | | | | MG [place] | | | | | | | DEXAMETHASON | | | | | | | E SODIUM | | | | | | | PHOS, 1 MG | | | | | | | [place] | | | | | | | FOSAPREPITAN | | | | | | | T INJECTION, | | | | | | | 1 MG [place] | | | | | | | LORAZEPAM | | | | | | | INJECTION, 2 | | | | | | | MG [place] | | | | | | | GEMCITABINE | | | | | | | HCL | | | | | | | INJECTION, | | | | | | | 200 MG [place] | | | | | | | CISPLATIN 10 | | | | | | | MG | | | | | | | INJECTION | | | | | | | [place] | | | | | | | METHYLPREDNI | | | | | | | SOLONE | | | | | | | INJECTION, | | | | | | | 125 MG [place] | | | | | | | ADRENALIN | | | | | | | EPINEPHRINE | | | | | | | INJECT, .1 | | | | | | | MG [place] | | | | | | | FILGASTIM | | | | | | | (ZARXIO) 300 | | | | | | | MCG/0.5ML | | | | | | | SOSY, PER 1 | | | | | | | MCG [place] | | | | | | | INJECTION, | | | | | | | FAMOTIDINE, | | | | | | | 20 MG [place] | | | | | | | NORMAL | | | | | | | SALINE | | | | | | | SOLUTION | | | | | | | INFUS, 500 | | | | | | | ML [place] | | | | | | | NORMAL | | | | | | | SALINE | | | | | | | SOLUTION | | | | | | | INFUS, 250 | | | | | | | ML GA | | | | | | | STERILE | | | | | | | WATER/SALINE | | | | | | | , 10 ML [place] | | | | | | | CHEMOTHER, | | | | | | | IV PUSH,EA | | | | | | | ADD DRUG GA | | | | | | | CHEMOTHER, | | | | | | | IV INFUSION, | | | | | | | 1 HR [place] | | | | | | | CHEMOTHER, | | | | | | | IV INFUSION, | | | | | | | EA HR GA | | | | | | | CHEMOTHER,NO | | | | | | | N-HORMONE | | | | | | | ANTI-NEOPL, | | | | | | | SUB-Q/IM GA | | | | | | | [...] + + | 05/20/ | Hospital | [facility] | Vladimir Robles, | Gallbladder cancer, | | 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 | MED CTR CHEMO | MD | carcinoma (HCC) | | | | INFUSION [address] | | | | | | [place], | | | | | | [place] [address] | | | | | | [phone] | | | +--------+ + + + [...] stable c ondition to follow up in [place] as scheduled.in this encounter Plan of Treatment [...]
--- OUTSIDE RECORDS SUMMARY | ~2017-06-05 | XMS | Clinical Summary ---
Demographics + + + | Address | [address] | | | [place] [address] | + + + | Home Phone [...] Team Providers + +------+ + | Care Sale Professional Digital Marketing Name | Role | Phone | + +------+ + | Valeriy Carmona MD | PP | Unavailable | + +------+ + Source Comments GWEN is fully live on both EpicCare Ambulatory and EpicCare InPatient.[facility] Allergies + + + + + + [...]
--- OUTSIDE RECORDS SUMMARY | ~2017-06-05 | XMS | Encounter Summary ---
Demographics + + + | Address | [address] | | | [place] [address] | + + + | Home Phone [...] Author | [facility] | | | and Eduardo[place] | + + + | Organization | [facility] | | | and [place]ardo[place] | + + + | Address | Unknown | + + + | Phone | Unavailable | + + + Support + + + + + | Name | Relationship | Address | Phone | + + + + + | Poncho Oquendo | ECON | [address] | | | | | [place] | | | | | [address] | | + + + + + | Marta Upton | ECON | [place] | | | | | [address] | | + + + + + Care Team Providers + +------+ + | Care Apartment Leasing Agent Name | Role | Phone | [...] | | | ONCOLOGY CLINIC [address] | [facility] | | | | | [address] | [place] [address] | | | | | [place] [address] | [phone] | | | | | [phone] | | | +--------+ + + + [...]
--- OUTSIDE RECORDS SUMMARY | ~2017-06-05 | XMS | Encounter Summary ---
Demographics + + + | Address | [address] | | | [place] [address] | + + + | Home Phone [...] | [facility] | | | and Eduardo[place] | + + + | Organization | [facility] | | | and Eduardo[place] | + + + | Address | Unknown | + + + | Phone | Unavailable | + + + Support + + + + + | Name | Relationship | Address | Phone | + + + + + | Poncho Oquendo | ECON | [address] | | | | | [place] | | | | | [address] | | + + + + + | Marat Upton | ECON | [place] | | | | | [address] | | + + + + + Care Team Providers + +------+ + | Care Nail Making Machine Tender Name | Role | Phone [...] 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, | [address] [place]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 | MD [address] | [place], | | | | | (HCC) | [address] | [place] [address] | | | | | Procedures | [place], | Phone: | | | | | [place] | [place] [address] | [phone] | | | | | DIPHENHYDRAM | Phone: | Fax: | | | | | INE HCL | [phone] | [phone] | | | | | INJECTIO, 50 | Fax: | | | | | | MG [place] | [phone] | | | | | | ONDANSETRON [...] | | | | | | MCG [place] | | | | | | | INJECTION, | | | | | | | FAMOTIDINE, | | | | | | | 20 MG [place] | | | | | [...] | | | | | | [place] [address] | | | | | | [phone] | | | +--------+ + + + [...]
--- OUTSIDE RECORDS SUMMARY | ~2017-06-05 | XMS | Encounter Summary ---
Demographics + + + | Address | [address] | | | [place] [address] | + + + | Home Phone [...] | Author | [facility] | | | and [place]ardo[place] | + + + | Organization | [facility] | | | and [place]ardo[place] | + + + | Address | Unknown | + + + | Phone | Unavailable | + + + Support + + + + + | Name | Relationship | Address | Phone | + + + + + | Poncho Oquendo | ECON | [address] | | | | | [place] | | | | | [address] | | + + + + + | Marta Upton | ECON | [place] | | | | | [address] | | + + + + + Care Team Providers + +------+ + | Care Stem Maker Name | Role | Phone | [...] | | [facility] | [place] [address] | | | | | [place] [address] | [phone] | | | | | [phone] | | | +--------+ + + + [...]
[~2017-06-05 21:22] MED LIST changes: +FENTANYL1 EAC1 TD; +FENTANYL1 EAC2 TD
[2017-06-05] MEDS ORDERED: HYDROMORPHONE HC2 MG PO (21:32)
--- OUTSIDE RECORDS SUMMARY | 2017-06-05 22:19 | XMS | Encounter Summary ---
Demographics + + + | Address | [address] | | | [place] [address] | + + + | Home Phone | | + + + | Preferred Language | Unknown | + + + | Marital Status | Single | + + + | Confucianism Affiliation | Unknown | + + + | Race | Unknown | + + + | Ethnic Group | Unknown | + + + Author + + + | Author | [facility] | | | and [place] | + + + | Organization | [facility] | | | and [place] | + + + | Address | Unknown | + + + | Phone | Unavailable | + + + Support + + + + + | Name | Relationship | Address | Phone | + + + + + | Poncho Oquendo | ECON | [address] | | | | | [place] | | | | | [address] | | + + + + + | Marta Upton | ECON | [place] | | | | | [address] | | + + + + + Care Team Providers + +------+ + | Care Is Architect Name | Role | Phone | + +------+ + | Valeriy Carmona DO | PCP | | + +------+ + Encounter Details +--------+ + + + + | Date | Type | Department | Care Team | Description | +--------+ + + + + | 05/13/ | Orders Only | [facility] | Reinal[place], | Gallbladder cancer, | | 2018 | | MED CTR PROVIDER | Epifanio Soler MD [address] | carcinoma (HCC) | | | | ONCOLOGY [address] [place] | | | | | [place], | [place] [address] | | | | | [place] [address] | [phone] | | | | | [phone] | | | +--------+ + + + + Social History + +-------+ +--------+------+ | Tobacco Use | Types | Packs/Day | Years | Date | | | | | Used | | + +-------+ +--------+------+ | Never Smoker | | | | | + +-------+ +--------+------+ + + + | Sex Assigned at | Date Recorded | | | | + + + | Not on file | | + + + as of this encounter Plan of Treatment Not on fileas of this encounter Visit Diagnoses + + | Diagnosis | + + | Gallbladder cancer, carcinoma (HCC) | + + | Malignant neoplasm of gallbladder | + +"
--- OUTSIDE RECORDS SUMMARY | 2017-06-05 22:19 | XMS | Clinical Summary ---
Demographics + + + | Address | [address] | | | [place] [address] | + + + | Home Phone | | + + + | Preferred Language | Unknown | + + + | Marital Status | Single | + + + | Jehovah'S Witness Affiliation | Unknown | + + + | Race | Unknown | + + + | Ethnic Group | Unknown | + + + Author + + + | Author | [facility] | | | and [place] | + + + | Organization | [facility] | | | and [place] | + + + | Address | Unknown | + + + | Phone | Unavailable | + + + Support + + + + + | Name | Relationship | Address | Phone | + + + + + | Poncho Oquendo | ECON | [address] | | | | | [place] | | | | | [address] | | + + + + + | Marta Corbin | ECON | [place] | | | | | [address] | | + + + + + Care Team Providers + +------+ + | Care Intake Specialist Name | Role | Phone | + +------+ + | Valeriy Carmona DO | PP | | + +------+ + Allergies + + + + + + | Active Allergy | Reactions | Severity | Noted | Comments | | | | | Date | | + + + + + + | Sulfa Antibiotics | Rash | High | 04/11/19 | | | | | | 14 | | + + + + + + | Sulfacetamide Sodium | Hives | | 05/21/19 | | | | | | 17 | | + + + + + + Current Medications + + +--------+---------+------+------+-------+ | Prescription | Sig. | Disp. | Refills | Star | End | Statu | | | | | | t | Date | s | | | | | | Date | | | + + +--------+---------+------+------+-------+ | acetaminophen | Take 500 mg by mouth | | | | | Activ | | (TYLENOL) 500 mg | every 4 hours as | | | | | e | | tablet | needed for | | | | | | | | Headaches. | | | | | | + + +--------+---------+------+------+-------+ | Probiotic Product | Take by mouth | | | | | Activ | | (PROBIOTIC DAILY PO) | Daily. | | | | | e | + + +--------+---------+------+------+-------+ | LORazepam (ATIVAN) | take 1 tablet by | | 0 | 02/1 | | Activ | | 1 mg tablet | mouth every 4 hours | | | 7/20 | | e | | | if needed FOR | | | 17 | | | | | NAUSEA, ANXIETY OR | | | | | | | | RESTLESSNESS | | | | | | + + +--------+---------+------+------+-------+ | docusate sodium | Take 100 mg by mouth | | | | | Activ | | (STOOL SOFTENER) 100 | 2 times daily. | | | | | e | | mg capsule | | | | | | | + + +--------+---------+------+------+-------+ | ondansetron | | | | 04/0 | | Activ | | (ZOFRAN ODT) 8 mg | | | | 5/20 | | e | | disintegrating | | | | 18 | | | | tablet | | | | | | | + + +--------+---------+------+------+-------+ | promethazine | | | | 04/0 | | Activ | | (PHENERGAN) 25 mg | | | | 5/20 | | e | | tablet | | | | 18 | | | + + +--------+---------+------+------+-------+ | OXYCONTIN 20 MG ER | Take 2 tablets by | 120 | 0 | 04/0 | | Activ | | abuse-deterrent | mouth every 12 | tablet | | 6/20 | | e | | tablet | hours. | | | 18 | | | + + +--------+---------+------+------+-------+ | HYDROmorphone | Take 2-3 tablets by | 150 | 0 | 04/0 | | Activ | | (DILAUDID) 2 mg | mouth every 3 hours | tablet | | 6/20 | | e | | tablet | as needed. | | | 18 | | | + + +--------+---------+------+------+-------+ | ondansetron | Take 1 tablet by | 50 | 3 | 04/0 | | Activ | | (ZOFRAN) 8 MG tablet | mouth every 8 hours | tablet | | 6/20 | | e | | | as needed for | | | 18 | | | | | Nausea. May take | | | | | | | | twice daily for two | | | | | | | | days after chemo; or | | | | | | | | one tab every eight | | | | | | | | hours as needed for | | | | | | | | nausea | | | | | | + + +--------+---------+------+------+-------+ | dexamethasone | Take 1 tablet by | 20 | 5 | 04/0 | | Activ | | (DECADRON) 4 mg | mouth 2 times daily | tablet | | 6/20 | | e | | tabletIndications: | (with breakfast & | | | 18 | | | | Gallbladder cancer, | dinner). On Days 2, | | | | | | | carcinoma (HCC) | 3 and Days 9, 10 of | | | | | | | | each cycle. | | | | | | + + +--------+---------+------+------+-------+ | LORazepam (ATIVAN) | Take 1 tablet by | 40 | 5 | 04/0 | | Activ | | 1 mg | mouth every 4 hours | tablet | | 6/20 | | e | | tabletIndications: | as needed (nausea, | | | 18 | | | | Gallbladder cancer, | anxiety or | | | | | | | carcinoma (HCC) | restlessness). | | | | | | + + +--------+---------+------+------+-------+ | ondansetron | Take one tablet | 30 | 5 | 04/0 | | Activ | | (ZOFRAN) 8 MG | orally twice a day | tablet | | 6/20 | | e | | tabletIndications: | for two days after | | | 18 | | | | Gallbladder cancer, | chemotherapy, then | | | | | | | carcinoma (HCC) | every 8 hours as | | | | | | | | needed for nausea. | | | | | | + + +--------+---------+------+------+-------+ | | Take 1 tablet by | | | | 04/0 | Disco | | HYDROcodone-acetamin | mouth every 6 hours | | | | 6/20 | ntinu | | ophen (NORCO) 10-325 | as needed for Pain. | | | | 18 | ed | | mg per tablet | | | | | | | + + +--------+---------+------+------+-------+ | ciprofloxacin | take 1 tablet by | | 0 | 12/1 | 04/0 | Disco | | (CIPRO) 500 mg | mouth twice a day | | | 8/20 | 6/20 | ntinu | | tablet | | | | 17 | 18 | ed | + + +--------+---------+------+------+-------+ | HYDROmorphone | Take 1-2 tablets by | | | 04/0 | 04/0 | Disco | | (DILAUDID) 2 mg | mouth every 4 hours | | | 5/20 | 6/20 | ntinu | | tablet | as needed. | | | 18 | 18 | ed | + + +--------+---------+------+------+-------+ | OXYCONTIN 20 MG ER | Take 1 tablet by | | 0 | 03/1 | 04/0 | Disco | | abuse-deterrent | mouth every 12 hours | | | 6/20 | 6/20 | ntinu | | tablet | as needed. 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 [[place] | | Health and Services Provider Handbook of Operational Guidelines | | (2015), fourth edition, page 45]. | + + + + + | Gallbladder cancer, carcinoma (HCC) | 06/26/2014 | + + + + + | Overview: ACTIVE DIAGNOSES: Recurrent cholangiocarcinoma.1. | | Presentation with biliary colic in 2012. Status post | | cholecystectomy and liver biopsy by Dr. Brandon Garcia on | | 03/29/2012. Pathological specimen [id number] was analyzed by | | Liu Bowers M.D. of [facility] and was notable | | for a poorly-differentiated adenocarcinoma of the gallbladder. | | Liver biopsy was performed at the same time of the procedure and | | demonstrated portal inflammation.2. On 04/26/2012, she | | successfully underwent a R0 resection by Dr. Tai Stanton, of | | the [facility]. Pathological specimen | | [id number] was notable for the absence of any residual | | carcinoma within the gallbladder bed; however, 2/8 regional lymph | | nodes were positive for regionally metastatic disease.3. | | Consultation with Dr. Elva Grey of the [facility] and | | [facility] on 05/17/2012, which returned the | | recommendation for adjuvant chemoradiation therapy following the | | SWOG protocol 0809 with capecitabine at 750 mg/m2 orally twice | | daily on days 1 through 14 given concurrently with gemcitabine at | | 1000 mg/m2 intravenously on days-1 and day-8 of the every 21-day | | cycle. The prescription was for 4 cycles of | | capecitabine/gemcitabine chemotherapy followed by capecitabine at | | 750 mg/m2 given twice daily on a continuous schedule with | | concurrent external beam radiation therapy.4. Following the | | completion of her adjuvant chemotherapy and chemoradiation | | therapy program, she crossed over to observation. She had a | | screening CT scan of the chest, abdomen, and pelvis in the | | asymptomatic state on 03/21/2014 demonstrating probable follicle | | in the left ovary.5. Repeat CT scan of the chest, abdomen, and | | pelvis still in the asymptomatic state on 05/18/2014 demonstrated | | a 6.1 cm x 6.5 cm x 5.8 cm complex mass within the left adnexa | | and a new 3.5 cm x 3.6 cm x 4 cm mas anterior to the uterus on | | the right.6. On 06/07/2014, she underwent exploratory | | laparotomy, total abdominal hysterectomy, bilateral | | salpingo-oophorectomy, pelvic and periaortic lymphadenectomy, | | omentectomy and surgical staging by Dr. Miguel Henderson of the | | [facility] and [facility]. Pathological analysis from | | this surgery specimen # [id number] was notable for a 9.5 cm mass | | replacing the left tube and ovary and extensively involving the | | ovarian stroma with focal involvement of the fallopian tubes. The | | tumor was poorly-differentiated carcinoma with neuroendocrine | | features, showing similar histological pattern to the previous | | resected lymph nodes from the gallbladder in 2012. In addition, | | immunohistochemistry was positive for CDX2 consistent with | | gastrointestinal origin. In addition, biopsy of the suspicious | | mass in the sigmoid colon was also positive for metastatic | | poorly-differentiated carcinoma with neuroendocrine features. The | | right tube and ovary contained a 5 cm metastatic | | poorly-differentiated carcinoma with neuroendocrine features. | | Removal of the suspicious lesion from the cul-de-sac also | | demonstrated metastatic poorly-differentiated carcinoma of | | neuroendocrine features. At the end of the procedure, there was | | no gross evidence of disease palpable or visible at the time of | | the completion of the procedure, which was a complete surgical | | debulking. 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 However, 122 of the remaining genes | | analyzed in the assay were all wild type.7. Repeat consultation | | with Dr. Elva Grey of the [facility] and [facility] | | on 06/26/2014 returned the recommendation for additional | | chemotherapy with cisplatin at 75 mg/m2 on day 1 with gemcitabine | | at 1250 mg/m2 on day-1 and day-8 of the every 21-day cycle for | | 6-8 cycles. This was followed by a second opinion by Dr. Quiroz | | Jeovany of the [facility] who recommended | | chemotherapy with cisplatin at 25 mg/m2 and gemcitabine 1000 | | mg/m2, both given concurrently on day-1 and day-8 of an every | | 21-day cycle for 6 cycles.8. Left anterior chest Port-A-Cath was | | placed by Dr. Brandon Garcia on 07/25/2014. This device remains in | | situ. It is functional for infusion, but does not have a blood | | return.9. Initiation of chemotherapy following the | | recommendations of Dr. Richie Thayer of the [facility] | | [place] with gemcitabine at 1000 mg/m2 on day-1 and day-8 with | | cisplatin 25 mg/m2 on day-1 and day-8 of the every 21-day cycle, | | beginning on 07/26/2014. Chemotherapy was complicated by grade 3 | | neutropenia without fever a grade 3 thrombocytopenia without | | bleeding.10. Repeat CT scan of the abdomen and pelvis on | | 09/16/2014 at the [facility] in [facility] | | [place], demonstrated stable postoperative changes involving | | the central liver without evidence of recurrence of malignancy. | | Interval hysterectomy and oophorectomy without evidence of | | residual or recurrent adnexal mass or suspicious findings.11. | | Completion of chemotherapy with cisplatin and gemcitabine on | | 11/29/2014 followed by a second period of observation.12. Repeat | | CT scan of the chest, abdomen, and pelvis at the [facility]. | | [facility] in [place], [place], | | demonstrated stable postoperative changes in the inferior aspect | | of the liver without any evidence of recurrence of malignancy. | | Surgically absent uterus and adnexal structures without evidence | | of residual or recurrent disease. Multiple loops of small-bowel | | closely applied and the anterior abdominal wall, likely related | | to adhesion formation.13. Repeat CT scan of the chest, abdomen, | | and pelvis with contrast on 03/24/2015 was notable for being | | status post right upper quadrant surgery. No evidence of | | metastatic disease.14. Repeat CT scan of the chest, abdomen, and | | pelvis at the [facility] in [place], [place], on | | 06/23/2015 demonstrating postoperative changes in the right upper | | quadrant. No evidence of recurrence or any evidence of | | metastatic disease.15. Repeat CT scan of the chest, abdomen, and | | pelvis at the [facility] in [place], [place], on | | 09/24/2015 demonstrating right upper quadrant post-surgical | | changes. No evidence of recurrent neoplasm. Interval development | | of a small hernia containing bowel and fat 3 cm above the | | umbilicus.16. Repeat CT scan of the abdomen and pelvis on | | 12/22/2015 at the [facility] in [place], [place], | | demonstrating a 1.5 cm soft tissue nodule just inferior to the | | liver within the mesentery on the right. In addition, there were | | tiny nodules in the bilateral upper quadrants.17. PET CT scan at | | [facility] in [place], [place], on 12/31/2015 | | demonstrating benign findings. The nodularity along the omental | | fat along the left colon and liver tail showed no abnormal | | uptake.18. Presentation to the [facility] | | Room on 03/15/2016 with complaints of abdominal pain, but without | | any nausea or vomiting. CT scan of the chest, abdomen, and | | pelvis with contrast demonstrated that the liver contained at | | least 12 new lesions consistent with metastatic disease. In | | addition, soft tissue densities within the mesentery inferior to | | the liver had progressed to 30 mm in diameter. Separate soft | | tissue nodule anterior to the spleen has also larger 28 mm.19. | | Resumption of systemic chemotherapy with cisplatin at 20 mg/m2 | | and gemcitabine at 800 mg/m2 on day-1 and day-8 every 21-day | | schedule on 04/02/2016, with subsequent dose reduction to | | cisplatin at 16 mg/m and gemcitabine at 640 mg/m and will the | | addition of growth factor support due to myelosuppression.20. | | Repeat CT scan of C/A/P at [facility] on July 01, 2016 | | demonstrated interval resolution of all but one of the liver | | metastases (5.8 mm remnant), and decrease in size of two omental | | metastases.21. She completed 6 cycles of cisplatin and | | gemcitabine chemotherapy with growth factor support on August 09, | | 2016.22. She crossed over to another period of observation | | without treatment. Repeat CT scan of the abdomen and pelvis with | | contrast, October 06, 2016, at [facility] in [facility] | | [place], demonstrated no evidence of recurrence or metastatic | | disease. Aura continued on observation without treatment.23. | | Repeat CT scan of the chest/abdomen/pelvis at [facility] demonstrated progression of disease and | | new left hydronephrosis. Status post left internal ureteral stent | | placement by Dr. Maldonado, January 31, 2017.24. Cross over to | | pembrolizumab February 25, 2017 x 4 cycles through April 06 | | 2017.25. CT abdomen/pelvis on April 26, 2017 demonstrated | | progression of disease with enlargement of previously noted | | nodules within the mesentery, new nodules within the mesentery | | and progressive liver metastases. Last Assessment & Plan: | | Aura returned to clinic on December 17, [address] scan | | earlier today demonstrates no evidence of recurrence of her | | cholangiocarcinoma. Plan; Cross over to observation. Follow up in | | two months for port draw for labs and port flush. In the | | interim, she will see Dr. Richie Thayer at the [facility] [place]. | + + + + + | LUMBAGO | 09/24/2011 | + + + | DEGENERATIVE DISC DISEASE, LUMBAR SPINE | 09/24/2011 | + + + | OSTEOARTHRITIS, LUMBOSACRAL SPINE | 09/24/2011 | + + + | SENSORY HEARING LOSS UNILATERAL | 07/06/2011 | + + + | OBESITY | 03/12/2011 | + + + | LOW BACK PAIN, CHRONIC | 02/14/2006 | + + + | DISC DISEASE, CERVICAL | | + + + | PARESTHESIA, HANDS | | + + + | HIP PAIN | | + + + | DISC DISEASE, LUMBAR | | + + + | OSTEOARTHRITIS, LUMBOSACRAL SPINE | | + + + | HEARING LOSS | | + + + | TINNITUS | | + + + Encounters +--------+ + + + + | Date | Type | Specialty | Care Team | Description | +--------+ + + + + | 05/27/ | Hospital | | Vladimir Robles, | Canceled (Clinic | | 2017 | Encounter | | MD | and/or Provider | | | | | | Cancellation) | +--------+ + + + + | 05/24/ | Telephone | | Reinaldo, | Other | | 2018 | | | Epifanio Soler MD | | +--------+ + + + + | 05/20/ | Hospital | | Vladimir Robles, | Gallbladder cancer, | | 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 | | MD | carcinoma (HCC) | | | | | | (Primary Dx); Liver | | | | | | metastases (HCC); | | | | | | Stage 3a chronic | | | | | | kidney disease; | | | | | | Cancer associated | | | | | | pain; Nausea and | | | | | | vomiting, | | | | | | intractability of | | | | | | vomiting not | | | | | | specified, | | | | | | unspecified vomiting | | | | | | type | +--------+ + + + + | 05/20/ | Hospital | | Vladimir Robles, | Gallbladder cancer, | | 2017 | Encounter | | | carcinoma (HCC) | +--------+ + + + + | 05/19/ | Telephone | | Reinaldo | Other | | 2017 | | | Epifanio Soler MD | | +--------+ + + + + | 05/13/ | Orders Only | | Reinaldo, | Gallbladder cancer, | | 2017 | | | Epifanio Soler MD | carcinoma (HCC) | +--------+ + + + + | 05/13/ | Orders Only | | Marcelina Johnson, | | | 2017 | | | RN | | +--------+ + + + + from Last 3 Months Immunizations + + + + | Name | Dates Previously Given | Next Due | + + + + | PNEUMOCOCCAL | 12/10/2002 | | | POLYSACCHARIDE | | | | 23-VALENT (PPSV23) | | | + + + + | TDAP, (ADOL/ADULT) | 02/04/2011 | | + + + + Social History + [...] on file | | + + + Last Filed Vital Signs + + + + | Vital Sign | Reading | Time Taken | + + + + | Blood Pressure | 124/71 | 05/20/2017913 PDT | + + + + | Pulse | 86 | 05/20/2017913 PDT | + + + + | Temperature | 37.1 C (98.8 F) | 05/20/2017913 PDT | + + + + | Respiratory Rate | 18 | 05/20/2017913 PDT | + + + + | Oxygen Saturation | 94% | 05/20/2017913 PDT | + + + + | Inhaled Oxygen | - | - | | Concentration | | | + + + + | Weight | 70.1 kg (154 lb 8.7 | 05/20/2017913 PDT | | | oz) | | + + + + | Height | 162 cm (5' 3.78") | 12/17/2014 1506 PST | + + + + | Body Mass Index | 26.71 | 05/20/2017913 PDT | + + + + Plan of Treatment + + + + + | Health Maintenance | Due Date | Last Done | Comments | + + + + + | Vaccine: | | 12/10/2002 | | | Pneumococcal 19-64 | 4 | | | | Highest Risk (2 of 3 | | | | | - PCV13) | | | | + + + + + | COLON CANCER | | | | | SCREENING | 2 | | | | (COLONOSCOPY EVERY | | | | | 10 YEARS 50-75) | | | | + + + + + | CERVICAL CANCER | | 05/05/2010 | | | SCREENING (PAP EVERY | 4 | | | | 3 YEARS 21-64 ) | | | | + + + + + | BREAST CANCER | | 08/11/2015, 2012, | | | SCREENING (MAMM Q2 | 8 | 07/01/2011, Additional history | | | YEARS 50-74) | | exists | | + + + + + | Vaccine: Influenza | | | | | (Season Ended) | 8 | | | + + + + + | Vaccine: | | 02/04/2011 | | | Dtap/Tdap/Td (2 - | 1 | | | | Td) | | | | + + + + + | Hepatitis C | Completed | 09/16/2014 | | | Screening | | | | + + + + + Results LABS - EXTERNAL SCAN (05/19/2017)Only the most recent of 3 results within the time period i s included. + + | Narrative | + + | Ordered by an unspecified provider. | + + IMAGING REPORT - EXTERNAL SCAN (04/26/2017) + + | Narrative | + + | Ordered by an unspecified provider. | + + from Last 3 Months Insurance + +--------+ +--------+-------+---------+ | Payer | Benefi | Subscriber | Type | Phone | Address | | | t Plan | ID | | | | | | / | | | | | | | Group | | | | | + +--------+ +--------+-------+---------+ | BCBS | BCBS | xxxxxxxxx | PPO | | | | | [place] | | | | | | | L FEP | | | | | + +--------+ +--------+-------+---------+ | [facility] | IHS | xxxxxxxxx | Indemn | | | | SERVICE | YELLOW | | ity | | | | | [place] | | | | | + +--------+ +--------+-------+---------+ + +--------+ +--------+ + + | Guarantor Name | Accoun | Relation to | Date | Phone | Billing Address | | | t Type | Patient | of | | | | | | | | | | + +--------+ +--------+ + + | AURA CORBIN | Person | Self [birth year] | 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
--- OUTSIDE RECORDS SUMMARY | 2017-06-05 22:19 | XMS | Encounter Summary ---
Demographics + + + | Address | [address] | | | [place] [address] | + + + | Home Phone | | + + + | Preferred Language | Unknown | + + + | Marital Status | Single | + + + | Yazdanism Affiliation | Unknown | + + + | Race | Unknown | + + + | Ethnic Group | Unknown | + + + Author + + + | Author | [facility] | | | and [place] | + + + | Organization | [facility] | | | and [place] | + + + | Address | Unknown | + + + | Phone | Unavailable | + + + Support + + + + + | Name | Relationship | Address | Phone | + + + + + | Poncho Oquendo | ECON | [address] | | | | | [place] | | | | | [address] | | + + + + + | Marta Upton | ECON | [place] | | | | | [address] | | + + + + + Care Team Providers + +------+ + | Care Addressograph Operator Name | Role | Phone | + +------+ + | Valeriy Carmona DO | PCP | | + +------+ + Reason for Visit +--------+ + | Reason | Comments | +--------+ + | Other | | +--------+ + Encounter Details +--------+ + + + + | Date | Type | Department | Care Team | Description | +--------+ + + + + | 05/24/ | Telephone | [facility] | Reinaldo, | Other | | 2018 | | [facility] | Epifanio Soler MD [address] | | | | [address] | [facility] | | | | | [address] [facility] | [place] [address] | | | | | [place] [address] | [phone] | | | | | [phone] | | | +--------+ + + + [...] on fileas of this encounter Visit Diagnoses Not on filein this encounter"
--- OUTSIDE RECORDS SUMMARY | 2017-06-05 22:19 | XMS | Encounter Summary ---
Demographics + + + | Address | [address] | | | [place] [address] | + + + | Home Phone | | + + + | Preferred Language | Unknown | + + + | Marital Status | Single | + + + | Rastafari Affiliation | Unknown | + + + | Race | Unknown | + + + | Ethnic Group | Unknown | + + + Author + + + | Author | [facility] | | | and Eduardoana | + + + | Organization | [facility] | | | and Eduardoana | + + + | Address | Unknown | + + + | Phone | Unavailable | + + + Support + + + + + | Name | Relationship | Address | Phone | + + + + + | Poncho Oquendo | ECON | [address] | | | | | [place] | | | | | [address] | | + + + + + | Marta Upton | ECON | [place] | | | | | [address] | | + + + + + Care Team Providers + +------+ + | Care Automotive General Manager Name | Role | Phone | + +------+ + | Valeriy Carmona DO | PCP | | + +------+ + Reason for Visit Service/Procedure (Routine) +--------+--------+ + + + + | Status | Reason | Specialty | Diagnoses / | Referred By | Referred To | | | | | Procedures | Contact | Contact | +--------+--------+ + + + + | Closed | | Infusion | Diagnoses | | [facility] | | | | Therapy | Malignant | Reinaldo, | Infusion [address] | | | | | 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, | [place]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 | MD [address] | [place], | | | | | (HCC) | [address] | [place] [address] | | | | | Procedures | [place], | Phone: | | | | | [place] | [place] [address] | [phone] | | | | | DIPHENHYDRAM | Phone: | Fax: | | | | | INE HCL | [phone] | [phone] | | | | | INJECTIO, 50 | Fax: | | | | | | MG [place] | [phone] | | | | | | ONDANSETRON | | | | | | | HCL | | | | | | | INJECTION, 1 | | | | | | | MG [place] | | | | | | | DEXAMETHASON | | | | | | | E SODIUM | | | | | | | PHOS, 1 MG | | | | | | | UT | | | | | | | FOSAPREPITAN | | | | | | | T INJECTION, | | | | | | | 1 MG UT | | | | | | | LORAZEPAM | | | | | | | INJECTION, 2 | | | | | | | MG [place] | | | | | | | GEMCITABINE | | | | | | | HCL | | | | | | | INJECTION, | | | | | | | 200 MG UT | | | | | | | CISPLATIN 10 | | | | | | | MG | | | | | | | INJECTION | | | | | | | UT | | | | | | | METHYLPREDNI | | | | | | | SOLONE | | | | | | | INJECTION, | | | | | | | 125 MG UT | | | | | | | ADRENALIN | | | | | | | EPINEPHRINE | | | | | | | INJECT, .1 | | | | | | | MG [place] | | | | | | | FILGASTIM | | | | | | | (ZARXIO) 300 | | | | | | | MCG/0.5ML | | | | | | | SOSY, PER 1 | | | | | | | MCG [place] | | | | | | | INJECTION, | | | | | | | FAMOTIDINE, | | | | | | | 20 MG UT | | | | | | | NORMAL | | | | | | | SALINE | | | | | | | SOLUTION | | | | | | | INFUS, 500 | | | | | | | ML UT | | | | | | | NORMAL | | | | | | | SALINE | | | | | | | SOLUTION | | | | | | | INFUS, 250 | | | | | | | ML UT | | | | | | | STERILE | | | | | | | WATER/SALINE | | | | | | | , 10 ML UT | | | | | | | CHEMOTHER, | | | | | | | IV PUSH,EA | | | | | | | ADD DRUG UT | | | | | | | CHEMOTHER, | | | | | | | IV INFUSION, | | | | | | | 1 HR UT | | | | | | | CHEMOTHER, | | | | | | | IV INFUSION, | | | | | | | EA HR UT | | | | | | | CHEMOTHER,NO | | | | | | | N-HORMONE | | | | | | | ANTI-NEOPL, | | | | | | | SUB-Q/IM UT | | | | | | | CHEMOTHER | | | | | | | HORMON | | | | | | | ANTINEOPL | | | | | | | SUB-Q/IM | | | +--------+--------+ + + + + Encounter Details +--------+ + + + + | Date | Type | Department | Care Team | Description | +--------+ + + + + | 05/27/ | Hospital | [facility] | Vladimir Robles, | Canceled (Clinic | | 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 | MED CTR CHEMO | MD | and/or Provider | | | | INFUSION [address] | | Cancellation) | | | | [place], | | | | | | [place] [address] | | | | | | [phone] | | | +--------+ + + + [...]
--- OUTSIDE RECORDS SUMMARY | 2017-06-05 22:19 | XMS | Clinical Summary ---
Demographics + + + | Address | [address] | | | [place] [address] | + + + | Home Phone | | + + + | Preferred Language | Unknown | + + + | Marital Status | Single | + + + | Evangelical Affiliation | Unknown | + + + | Race | Unknown | + + + | Ethnic Group | Unknown | + + + Author + + + | Author | [facility] | | | and Eduardo[place] | + + + | Organization | [facility] | | | and Eduardo[place] | + + + | Address | Unknown | + + + | Phone | Unavailable | + + + Support + + + + + | Name | Relationship | Address | Phone | + + + + + | Poncho Oquendo | ECON | [address] | | | | | [place] | | | | | [address] | | + + + + + | Marta Corbin | [place]CON | [place] | | | | | [address] | | + + + + + Care Team Providers + +------+ + | Care Avionics Systems Technician Name | Role | Phone | + [...] | | written pain management agreement/narcotic contract. [[place] | | Health and Services Provider Handbook [...] Garcia on | | 03/29/2012. Pathological specimen [id number] was analyzed by | | Liu Bowers M.D. of [facility] and was notable | | for a poorly-differentiated adenocarcinoma of the gallbladder. | | Liver biopsy was performed at the same time of the procedure and | | demonstrated portal inflammation.2. On 04/26/2012, she | | successfully underwent a R0 resection by Dr. Tai Stanton, of | | the [facility]. Pathological specimen | | [id number] was notable for the absence of any residual | | carcinoma within the gallbladder bed; however, 2/8 regional lymph | | nodes were positive for regionally metastatic disease.3. | | Consultation with Dr. Elva Grey of the [facility] | | [facility] on 05/17/2012, which returned the | | [...] Dr. Miguel Henderson of the | | [facility] [employer]. 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 However, 122 of the remaining genes | | analyzed in the assay were all wild type.7. Repeat consultation | | with Dr. Elva Grey of the [facility] | | on 06/26/2014 returned the recommendation for additional | | chemotherapy with cisplatin at 75 mg/m2 on day 1 with gemcitabine | | at 1250 mg/m2 on day-1 and day-8 of the every 21-day cycle for | | 6-8 cycles. This was followed by a second opinion by Dr. Quiroz | | Jeovany of the [facility] who recommended | | chemotherapy with cisplatin [...] recommendations of Dr. Richie Thayer of the [facility] | | [place] with gemcitabine at 1000 mg/m2 on day-1 and day-8 with | | cisplatin 25 mg/m2 on day-1 and day-8 of the every 21-day cycle, | | beginning on 07/26/2014. Chemotherapy was complicated by grade 3 | | neutropenia without fever a grade 3 thrombocytopenia without | | bleeding.10. Repeat CT scan of the abdomen and pelvis on | | 09/16/2014 at the [facility] in [facility] | | [place], demonstrated stable postoperative changes involving | | [...] the chest, abdomen, and pelvis at the [facility]. | | [facility] in [place], [place], | | demonstrated stable postoperative changes [...] abdomen, and | | pelvis at the [facility] in [place], [place], on | | 06/23/2015 demonstrating postoperative changes in the right upper | | quadrant. No evidence of recurrence or any evidence of | | metastatic disease.15. Repeat CT scan of the chest, abdomen, and | | pelvis at the [facility] in [place], [place], on | | 09/24/2015 demonstrating right upper quadrant post-surgical | | changes. No evidence of recurrent neoplasm. Interval development | | of a small hernia containing bowel and fat 3 cm above the | | umbilicus.16. Repeat CT scan of the abdomen and pelvis on | | 12/22/2015 at the [facility] in [place], [place], | | demonstrating a 1.5 cm soft tissue nodule just inferior to the | | liver within the mesentery on the right. In addition, there were | | tiny nodules in the bilateral upper quadrants.17. PET CT scan at | | [facility] in [place], [place], on 12/31/2015 | | demonstrating benign findings. The nodularity along the omental | | fat along the left colon and liver tail showed no abnormal | | uptake.18. Presentation to the [facility] Emergency | | Room on 03/15/2016 with [...] | Repeat CT scan of C/A/P at [facility] on July 01, 2016 | | demonstrated [...] | | contrast, October 06, 2016, at [facility] in [facility] | | [place], demonstrated no evidence of recurrence or metastatic | | disease. Aura continued on observation without treatment.23. | | Repeat CT scan of the chest/abdomen/pelvis at [facility] demonstrated progression of disease and | | [...] will see Dr. Richie Thayer at the [facility] [place]. 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
--- OUTSIDE RECORDS SUMMARY | 2017-06-05 22:19 | XMS | Encounter Summary ---
Demographics + + + | Address | [address] | | | [place] [address] | + + + | Home Phone | | + + + | Preferred Language | Unknown | + + + | Marital Status | Single | + + + | Scientology Affiliation | Unknown | + + + | Race | Unknown | + + + | Ethnic Group | Unknown | + + + Author + + + | Author | [facility] | | | and Eduardo[place] | + + + | Organization | [facility] | | | and [place] | + + + | Address | Unknown | + + + | Phone | Unavailable | + + + Support + + + + + | Name | Relationship | Address | Phone | + + + + + | Poncho Oquendo | ECON | [address] | | | | | [place] | | | | | [address] | | + + + + + | Marta Upton | ECON | [place] | | | | | [address] | | + + + + + Care Team Providers + +------+ + | Care Paratransit Operator Name | Role | Phone | + +------+ + | Valeriy Carmona DO | PCP | | + +------+ + Reason for Visit Evaluate & Treat (Routine) +--------+--------+ + + + + | Status | Reason | Specialty | Diagnoses / | Referred By | Referred To | | | | | Procedures | Contact | Contact | +--------+--------+ + + + + | Closed | | Oncology | Diagnoses | Kristine, | Travis, | | | | | [facility] | Valeriy Coello DO | Vladimir Nelson MD | | | | | Q IS OUT- | [id number] | | | | | | PATIENT IS | CONFEDERATED | | | | | | FROM [facility]- | WAY | | | | | | LABS/PORT | [place], | | | | | | [address] | [place] [address] | | | | | | Procedures | Phone: | | | | | | [facility] | [phone] | | | | | | FOLLOW UP | Fax: | | | | | | | [phone] | | +--------+--------+ + + + + Encounter Details +--------+ + + + + | Date | Type | Department | Care Team | Description | +--------+ + + + + | 05/20/ | Hospital | [facility] | Vladimir Robles, | Gallbladder cancer, | | 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 | [facility] | MD | carcinoma (HCC) | | | | [facility] [address] | | (Primary Dx); Liver | | | | [address] [place] | | metastases (HCC); | | | | [place] [address] | | Stage 3a chronic | | | | [phone] | | kidney disease; | | | [...] type | +--------+ + + + + Social [...] + + + as of this encounter Last Filed Vital Signs + + + [...] + + + + | Height | - | - | + + + + | Body Mass Index | 26.71 | 05/20/2017913 PDT | + + + + in this encounter Medications at Time of Discharge + + +--------+---------+ + + | Medication | Sig. | Disp. | Refills | Start | End Date | | | | | | Date | | + + +--------+---------+ + + | acetaminophen | Take 500 mg by mouth | | | | | | (TYLENOL) 500 mg | every 4 hours as | | | | | | tablet | needed for | | | | | | | Headaches. | | | | | + + +--------+---------+ + + | dexamethasone | Take 1 tablet by | 20 | 5 | 05/21/19 | | | (DECADRON) 4 mg | mouth 2 times daily | tablet | | 18 | | | tabletIndications: | (with breakfast & | | | | | | Gallbladder cancer, | dinner). On Days 2, | | | | | | carcinoma (HCC) | 3 and Days 9, 10 of | | | | | | | each cycle. | | | | | + + +--------+---------+ + + | docusate sodium | Take 100 mg by mouth | | | | | | (STOOL SOFTENER) 100 | 2 times daily. | | | | | | mg capsule | | | | | | + + +--------+---------+ + + | HYDROmorphone | Take 2-3 tablets by | 150 | 0 | 20 | | | (DILAUDID) 2 mg | mouth every 3 hours | tablet | | 18 | | | tablet | as needed. | | | | | + + +--------+---------+ + + | LORazepam (ATIVAN) | Take 1 tablet by | 40 | 5 | /20 | | | 1 mg | mouth every 4 hours | tablet | | 18 | | | tabletIndications: | as needed (nausea, | | | | | | Gallbladder cancer, | anxiety or | | | | | | carcinoma (HCC) | restlessness). | | | | | + + +--------+---------+ + + | LORazepam (ATIVAN) | take 1 tablet by | | 0 | 04/02/19 | | | 1 mg tablet | mouth every 4 hours | | | 17 | | | | if needed FOR | | | | | | | NAUSEA, ANXIETY OR | | | | | | | RESTLESSNESS | | | | | + + +--------+---------+ + + | ondansetron | | | | 05/20/19 | | | (ZOFRAN ODT) 8 mg | | | | 18 | | | disintegrating | | | | | | | tablet | | | | | | + + +--------+---------+ + + | ondansetron | Take 1 tablet by | 50 | 3 | 05/21/19 | | | (ZOFRAN) 8 MG tablet | mouth every 8 hours | tablet | | 18 | | | | as needed for | | | | | | | Nausea. May [...] | nausea | | | | | + + +--------+---------+ + + | ondansetron | Take one tablet | 30 | 5 | 05/21/19 | | | (ZOFRAN) 8 MG | orally twice a day | tablet | | 18 | | | tabletIndications: | for two days after | | | | | | Gallbladder cancer, | chemotherapy, then | | | | | | carcinoma (HCC) | every 8 hours as | | | | | | | needed for nausea. | | | | | + + +--------+---------+ + + | OXYCONTIN 20 MG ER | Take 2 tablets by | 120 | 0 | 05/21/19 | | | abuse-deterrent | mouth every 12 | tablet | | 18 | | | tablet | hours. | | | | | + + +--------+---------+ + + | Probiotic Product | Take by mouth | | | | | | (PROBIOTIC DAILY PO) | Daily. | | | | | + + +--------+---------+ + + | promethazine | | | | 05/20/19 | | | (PHENERGAN) 25 mg | | | | 18 | | | tablet | | | | | | + + +--------+---------+ + + as of this encounter Progress Notes Vladimir Robles MD - 05/20/2017 0858 PDTFormatting of this note may be different from the original. Hematology-Oncology Progress Note [facility] Pt. Name/Age/: Aura Upton 56 y.o. 1960 CSN: [id number] Date of service: 05/20/2017 Provider: Vladimir Robles MD HEMATOLOGY/ONCOLOGY PROBLEM LIST: Gallbladder cancer, carcinoma (HCC) 03/29/2012 Initial Diagnosis Gallbladder cancer, carcinoma (HCC) 04/26/2012 Surgery R0 resection 05/31/2012 - 09/03/2012 Chemotherapy Xeloda/gemcitabine x 4 - 10/04/2012 Radiation Therapy XRT with Xeloda 06/07/2014 Relapse Complete resection 07/26/2014 - 11/29/2014 Chemotherapy Cisplatin/gemcitabine 03/15/2016 Relapse 04/02/2016 - 08/09/2016 Chemotherapy Cisplatin/gemcitabine x 6 02/25/2017 - 04/06/2017 Immunotherapy pembrolizumab x 4, progression 05/20/2017 - Chemotherapy Gemcitabine (D1,8) + CISplatin (D1,8) Q 3weeks Of note, above dates are not necessarily exact. Assessment and plan: Patient is doing a little bit better overnight though not tolerating the dissolvable ondans etron well, wants the tablets which worked better for her in the past. Also, still does not have adequate pain control, have recommended escalation of both her long-acting and short-a cting narcotics. Plan for resumption of palliative chemotherapy reviewed including dose adjustment of her ch emotherapy, specifically the cis-peoria given her renal dysfunction. 1. Proceed with day 1, cycle 1 of dose adjusted cis-peoria and gemcitabine as ordered. 2. Increase OxyContin to 40 mg every 12 hours. 3. Increase hydromorphone to 4 6 milligrams every 3 hours as needed for pain. 4. Prescription for Zofran tablets given. 5. Back in a week for day 8 treatment. Subjective: The patient chart and medications were reviewed in detail and the patient was seen and exam tarasTimmy Upton is a 56 y.o. female with metastatic cholangiocarcinoma here for chemothera py. Patient has the above complicated oncologic history, most recently on pembrolizumab without benefit. In the last few weeks she has had progressive pain, also nausea, has decided to t ry palliative cis-peoria/gemcitabine again to which she has responded in the past. Ended up in the emergency room yesterday in [place] with nausea and vomiting, responded to ondan setron and Phenergan. Also had had worsening pain, responded to hydromorphone given in the ER, the sent home with Dilaudid 2 4 milligrams, says to 4 mg helps but still has residual pain. Of note, has been on OxyContin 20 mg every 12 hours for the last 2 weeks. PMH: No past medical history on file. Social & Family Hx: Social History Social History Marital status: Single Spouse name: N/A Number of children: N/A Years of education: N/A Social History Main Topics Smoking status: Never Smoker Smokeless tobacco: Not on file Alcohol use Not on file Drug use: Unknown Sexual activity: Not on file Other Topics Concern Not on file Social History Narrative No narrative on file No family history on file. Review of Systems: REVIEW OF SYSTEMS Constitutional: Reports energy level is low. Reports nausea and vomiting yesterday, antieme tics from ER are helpful, except they gave her dissolving zofran which makes her nauseated d ue to the taste. Reports almost nightly night sweats. Down 7kg since 02/02/18. Appetite is l ow. Denies high fevers, shaking chills, anorexia, weight loss. Ear, Nose, Mouth, Throat: Reports occasional dysphagia with her secretions, drinking water helps this. Reports tinnitus continues, unchanged. Denies odynophagia. Cardiovascular: Reports dyspnea with exertion. Denies shortness of breath, chest pain, palp itations or orthopnea. Respiratory: Denies cough, hemoptysis, or sputum production. Gastrointestinal: Reports abdominal pain has worsened this week. Reports constipation, stat es she has had small bowel movements but not normal. Denies diarrhea, melena, or bright red blood per rectum. Genitourinary: States she had new stent placement in ureter from left kidney on 05/06. Repor ts blood in urine last week, she thinks related to stent. Reports pressure with urination. Denies dysuria. Musculoskeletal: Reports pain in bilateral hips, states it is new and constant. Neurologic: Denies headache, visual changes, or numbness/tingling of the extremities. Endocrine: Reports ongoing intermittent edema in left leg. Denies heat/cold intolerance. Hematologic: Denies spontaneous bruising or bleeding. Integumentary: Denies rash, wounds or other skin concerns. Pain: 5/10 in mid abdomen, last dilaudid at 0630. Note: Here for follow up and 6 hour treatment, labs done in [place] ER. My chart: Medications: Current Outpatient Prescriptions Medication Sig acetaminophen (TYLENOL) 500 mg tablet Take 500 mg by mouth every 4 hours as needed for Headaches. docusate sodium (STOOL SOFTENER) 100 mg capsule Take 100 mg by mouth 2 times daily. HYDROmorphone (DILAUDID) 2 mg tablet Take 2-3 tablets by mouth every 3 hours as needed. LORazepam (ATIVAN) 1 mg tablet take 1 tablet by mouth every 4 hours if needed FOR NAUSE A, ANXIETY OR RESTLESSNESS ondansetron (ZOFRAN ODT) 8 mg disintegrating tablet ondansetron (ZOFRAN) 8 MG tablet Take 1 tablet by mouth every 8 hours as needed for Luigi sea. May take twice daily for two days after chemo; or one tab every eight hours as needed f or nausea OXYCONTIN 20 MG ER abuse-deterrent tablet Take 2 tablets by mouth every 12 hours. Probiotic Product (PROBIOTIC DAILY PO) Take by mouth Daily. promethazine (PHENERGAN) 25 mg tablet No current facility-administered medications for this encounter. Allergies: Allergies Allergen Reactions Sulfa Antibiotics Rash Sulfacetamide Sodium Hives Vitals: Temp: 37.1 C (98.8 F) BP: 124/71 Pulse: 86 Resp: 18 SpO2: 94 % on Temp :Temp Av.1 C (98.8 F) Min: 37.1 C (98.8 F) Max: 37.1 C (98.8 F) No intake or output data in the 24 hours ending 05/20/17 0929 Wt. Current: Weight: 70.1 kg (154 lb 8.7 oz) Physical Exam: Exam: ECOG Performance Status: 1 General: The patient is alert and oriented. No acute distress. Here with her mother. HEENT: PERRL, . Non-icteric. Extremities: Nontender, no erythema, no edema. Skin: No rashes, bruising, or petechiae. Neurological: No focal deficits noted. Speech fluent. Psychiatric: Normal mood and affect. Appropriate. Diagnostic studies: Available data and image reports were reviewed personally. See reports. Significant resul ts and findings are addressed here or in the Assessment and Plan. 05/19/2017 labs: WBC 8800, hemoglobin 11.8, platelets 194,000 Creatinine 1.19, GFR 47, calcium 8.6, bilirubin 0.8, AST 25, ALT 14, alkaline phosphatase 9 4 Electronically signed by: Vladimir Robles MD 05/20/2017 9:29 CC: Valeriy Carmona DO Portions of this chart may have been created with [employer] voice recognition software. Occasi onal wrong-word or sound-alike substitutions may have occurred due to the inherent stevenson itations of voice recognition software. Please read the chart carefully and recognize, using context, where these substitutions have occurred.in this encounter Plan of Treatment Not on fileas of this encounter Results LABS - EXTERNAL SCAN (05/19/2017) + + | Narrative | + + | Ordered by an unspecified provider. | + + in this encounter Visit Diagnoses + + | Diagnosis | + + | Gallbladder cancer, carcinoma (HCC) - Primary | + + | Malignant neoplasm of gallbladder | + + | Liver metastases (HCC) | + + | Secondary malignant neoplasm of liver | + + | Stage 3a chronic kidney disease | + + | Cancer associated pain | + + | Neoplasm related pain (acute) (chronic) | + + | Nausea and vomiting, intractability of vomiting not specified, unspecified vomiting type | + +"
--- OUTSIDE RECORDS SUMMARY | 2017-06-05 22:19 | XMS | Clinical Summary ---
Demographics + + + | Address | [address] | | | [place] [address] | + + + | Home Phone | | + + + | Preferred Language | Unknown | + + + | Marital Status | Single | + + + | Islam Affiliation | NON | + + + | Race | White | + + + | Ethnic Group | Not or | + + + Author + + + | Author | [facility] | + + + | Organization | [facility] | + + + | Address | Unknown | + + + | Phone | Unavailable | + + + Support + + +---------+ + | Name | Relationship | Address | Phone | + + +---------+ + | FERNANDO ABARCA | ECON | Unknown | | + + +---------+ + | Marta Upton | ECON | Unknown | | | "Pat" | | | | + + +---------+ + Care Team Providers + +------+ + | Care Flash Welder Name | Role | Phone | + +------+ + | Valeriy Carmona MD | PP | Unavailable | + +------+ + Source Comments GWEN is fully live on both EpicCare Ambulatory and EpicCare InPatient.[facility] Allergies + + + + + + | Active Allergy | Reactions | Severity | Noted | Comments | | | | | Date | | + + + + + + | Sulfacetamide Sodium | Hives | | 05/22/19 | | | | | | 15 | | + + + + + + Current Medications + + +---------+---------+------+------+-------+ | Prescription | Sig. | Disp. | Refills | Star | End | Statu | | | | | | t | Date | s | | | | | | Date | | | + + +---------+---------+------+------+-------+ | MULTIVIT | Take 1 tablet by | | | | | Activ | | &MINERALS/FERROUS | mouth once daily. | | | | | e | | FUM (MULTI VITAMIN | | | | | | | | ORAL) | | | | | | | + + +---------+---------+------+------+-------+ | LACTOBACILLUS | Take 1 capsule by | | | | | Activ | | ACIDOPHILUS | mouth once daily. | | | | | e | | (PROBIOTIC ORAL) | | | | | | | + + +---------+---------+------+------+-------+ | ibuprofen 600 mg | Take 1 tablet by | 80 | 2 | 04/2 | | Activ | | oral tablet | mouth every six | tablet | | 6/20 | | e | | | hours as needed. | | | 15 | | | + + +---------+---------+------+------+-------+ | lidocaine 5 %(700 | Apply 1 patch to | 10 | 1 | 04/2 | | Activ | | mg/patch) topical | skin once daily. | patch | | 6/20 | | e | | adhesive | Apply patch to most | | | 15 | | | | patch,medicated | painful area; Patch | | | | | | | | may remain in place | | | | | | | | for up to 12 hours | | | | | | | | in any 24-hour | | | | | | | | period. | | | | | | + + +---------+---------+------+------+-------+ | docusate sodium | Take 1 capsule by | 60 | 2 | 05/1 | | Activ | | (COLACE) 100 mg oral | mouth two times | capsule | | 6/20 | | e | | capsule | daily. | | | 15 | | | + + +---------+---------+------+------+-------+ | polyethylene | Take 17 g by mouth | 119 g | 3 | 06/0 | | Activ | | glycol (MIRALAX) 17 | once daily. | | | 9/20 | | e | | gram/dose oral | | | | 15 | | | | powder | | | | | | | + + +---------+---------+------+------+-------+ | oxyCODONE, | Take 1 tablet by | 30 | 0 | 06/0 | | Activ | | immediate release, 5 | mouth every six | tablet | | 9/20 | | e | | mg oral tablet | hours as needed. 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 | + + + | Nasal septal defect | 12/28/2007 | + + + Family History + + +------+ + | Medical History | Relation | Name | Comments | + + +------+ + | Coronary Artery | Father | | s/p CABG | | Disease | | | | + + +------+ + | Diabetes | Father | | | + + +------+ + | Cancer | Other | | niece thyroid | + + +------+ + + +------+--------+ + | Relation | Name | Status | Comments | + +------+--------+ + | Father | | | | + +------+--------+ + | Other | | | | + +------+--------+ + Social History + + + +--------+ + | Tobacco Use | Types | Packs/Day | Years | Date | | | | | Used | | + + + +--------+ + | Former Smoker | Cigarettes | 0.5 | 25 | Quit: 02/14/2006 | + + + +--------+ + + +---+---+---+ | Smokeless Tobacco: | | | | | Never Used | | | | + +---+---+---+ + + +---------+ + | Alcohol Use | Drinks/We | oz/Week | Comments | | | ek | | | + + +---------+ + | Yes | 1 | 0.5 | 2-3 glasses of wine per month. | | | Glasses | | | | | of wine | | | + + +---------+ + + + + | Sex Assigned at | Date Recorded | | | | + + + | Not on file | | + + + Last Filed Vital Signs + + + + | Vital Sign | Reading | Time Taken | + + + + | Blood Pressure | 114/58 | 07/23/2014 4:07 PM PDT | + + + + | Pulse | 102 | 07/23/2014 4:07 PM PDT | + + + + | Temperature | 37 C (98.6 F) | 07/23/2014 4:07 PM PDT | + + + + | Respiratory Rate | 16 | 06/26/2014 10:41 AM PDT | + + + + | Oxygen Saturation | 99% | 07/23/2014 4:07 PM PDT | + + + + | Inhaled Oxygen | - | - | | Concentration | | | + + + + | Weight | 75.7 kg (166 lb 12.8 | 07/23/2014 4:07 PM PDT | | | oz) | | + + + + | Height | 162.6 cm (5' 4") | 07/23/2014 4:07 PM PDT | + + + + | Body Mass Index | 28.63 | 07/23/2014 4:07 PM PDT | + + + + Plan of Treatment + + + + + | Health Maintenance | Due Date | Last Done | Comments | + + + + + | MAMMOGRAM | | | | | | 2 | | | + + + + + | INFLUENZA VACCINE | | 04/14/2009 | | | (FLU SHOT) | 8 | | | + + + + + Results Not on filefrom Last 3 Months
--- OUTSIDE RECORDS SUMMARY | 2017-06-05 22:19 | XMS | Clinical Summary ---
Demographics + + + | Address | [address] | | | [place] [address] | + + + | Home Phone | | + + + | Preferred Language | Unknown | + + + | Marital Status | Single | + + + | Scientologist Affiliation | NON | + + + [...] | + + +---------+ + | FERNANDO ABARAC | ECON | Unknown | | + + +---------+ + | Marta Upton | ECON | Unknown | | | "Pat" | | | | + + +---------+ + Care Team Providers + +------+ + | Care Digital Marketing Lead Name | Role | Phone | + +------+ + | Valeriy Carmona MD | PP | Unavailable | + +------+ + Source Comments GWEN is fully live on both EpicCare Ambulatory and EpicCare InPatient.[facility] Allergies + + + + + + [...]
--- OUTSIDE RECORDS SUMMARY | 2017-06-05 22:19 | XMS | Encounter Summary ---
Demographics + + + | Address | [address] | | | [place] [address] | + + + | Home Phone | | + + + | Preferred Language | Unknown | + + + | Marital Status | Single | + + + | Evangelical Affiliation | Unknown | + + + | Race | Unknown | + + + | Ethnic Group | Unknown | + + + Author + + + | Author | [facility] | | | and [place] | + + + | Organization | [facility] | | | and [place] | + + + | Address | Unknown | + + + | Phone | Unavailable | + + + Support + + + + + | Name | Relationship | Address | Phone | + + + + + | Poncho Oquendo | ECON | [address] | | | | | [place] | | | | | [address] | | + + + + + | Marta Upton | ECON | [place] | | | | | [address] | | + + + + + Care Team Providers + +------+ + | Care Diversity Manager Name | Role | Phone | + +------+ + | Valeriy Carmona DO | PCP | | + +------+ + Encounter Details +--------+ + + + + | Date | Type | Department | Care Team | Description | +--------+ + + + + | 05/13/ | Orders Only | [facility] | Marcelina Johnson, | | | 2017 | | MED CTR CHEMO | RN | | | | | INFUSION [address] | | | | | | [place], | | | | | | [place] [address] | | | | | | [phone] | | | +--------+ + + + [...]
--- OUTSIDE RECORDS SUMMARY | 2017-06-05 22:19 | XMS | Encounter Summary ---
Demographics + + + | Address | [address] | | | [place] [address] | + + + | Home Phone | | + + + | Preferred Language | Unknown | + + + | Marital Status | Single | + + + | Samaritan Affiliation | Unknown | + + + | Race | Unknown | + + + | Ethnic Group | Unknown | + + + Author + + + | Author | [facility] | | | and [place] | + + + | Organization | [facility] | | | and [place] | + + + | Address | Unknown | + + + | Phone | Unavailable | + + + Support + + + + + | Name | Relationship | Address | Phone | + + + + + | Poncho Oquendo | ECON | [address] | | | | | [place] | | | | | [address] | | + + + + + | Marta Upton | ECON | [place] | | | | | [address] | | + + + + + Care Team Providers + +------+ + | Care De Icer Kit Assembler Name | Role | Phone | + [...] + + | 05/19/ | Telephone | [facility] | Reinaldo, | Other | | 2018 | | MED CTR MEDICAL | Epifanio Soler MD [address] | | | | | ONCOLOGY CLIN[address] | [facility] | | | | | [address] [facility] | [place] [address] | | | | | [place] [address] | [phone] | | | | | [phone] | | | +--------+ + + + [...]
--- OUTSIDE RECORDS SUMMARY | 2017-06-05 22:19 | XMS | Encounter Summary ---
Demographics + + + | Address | [address] | | | [place] [address] | + + + | Home Phone | | + + + | Preferred Language | Unknown | + + + | Marital Status | Single | + + + | Protestant Affiliation | Unknown | + + + | Race | Unknown | + + + | Ethnic Group | Unknown | + + + Author + + + | Author | [facility] | | | and [place] | + + + | Organization | [facility] | | | and [place] | + + + | Address | Unknown | + + + | Phone | Unavailable | + + + Support + + + + + | Name | Relationship | Address | Phone | + + + + + | Poncho Oquendo | ECON | [address] | | | | | [place] | | | | | [address] | | + + + + + | Marta Upton | ECON | [place] | | | | | [address] | | + + + + + Care Team Providers + +------+ + | Care Patient Account Liaison Name | Role | Phone | + [...] 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, | [place]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 | MD [address] | [place], | | | | | (HCC) | [address] | [place] [address] | | | | | Procedures | [place], | Phone: | | | | | [place] | [place] [address] | [phone] | | | | | DIPHENHYDRAM | Phone: | Fax: | | | | | INE HCL | [phone] | [phone] | | | | | INJECTIO, 50 | Fax: | | | | | | MG [place] | [phone] | | | | | | ONDANSETRON | | | | | | | HCL | | | | | | | INJECTION, 1 | | | | | | | MG [place] | | | | | | | DEXAMETHASON | | | | | | | E SODIUM | | | | | | | PHOS, 1 MG | | | | | | | ND | | | | | | | FOSAPREPITAN | | | | | | | T INJECTION, | | | | | | | 1 MG ND | | | | | | | LORAZEPAM | | | | | | | INJECTION, 2 | | | | | | | MG ND | | | | | | | GEMCITABINE | | | | | | | HCL | | | | | | | INJECTION, | | | | | | | 200 MG ND | | | | | | | CISPLATIN 10 | | | | | | | MG | | | | | | | INJECTION | | | | | | | ND | | | | | | | METHYLPREDNI | | | | | | | SOLONE | | | | | | | INJECTION, | | | | | | | 125 MG ND | | | | | | | ADRENALIN | | | | | | | EPINEPHRINE | | | | | | | INJECT, .1 | | | | | | | MG ND | | | | | | | FILGASTIM | | | | | | | (ZARXIO) 300 | | | | | | | MCG/0.5ML | | | | | | | SOSY, PER 1 | | | | | | | MCG ND | | | | | | | INJECTION, | | | | | | | FAMOTIDINE, | | | | | | | 20 MG ND | | | | | | | NORMAL | | | | | | | SALINE | | | | | | | SOLUTION | | | | | | | INFUS, 500 | | | | | | | ML ND | | | | | | | NORMAL | | | | | | | SALINE | | | | | | | SOLUTION | | | | | | | INFUS, 250 | | | | | | | ML ND | | | | | | | STERILE | | | | | | | WATER/SALINE | | | | | | | , 10 ML ND | | | | | | | CHEMOTHER, | | | | | | | IV PUSH,EA | | | | | | | ADD DRUG ND | | | | | | | CHEMOTHER, | | | | | | | IV INFUSION, | | | | | | | 1 HR ND | | | | | | | CHEMOTHER, | | | | | | | IV INFUSION, | | | | | | | EA HR ND | | | | | | | CHEMOTHER,NO | | | | | | | N-HORMONE | | | | | | | ANTI-NEOPL, | | | | | | | SUB-Q/IM ND | | | | | | | [...] | 05/27/ | Hospital | [facility] | Vladimir Robles, | Canceled (Clinic | | 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 | MED CTR CHEMO | MD | and/or Provider | | | | INFUSION [address] | | Cancellation) | | | | [place], | | | | | | [place] [address] | | | | | | [phone] | | | +--------+ + + + [...]
--- OUTSIDE RECORDS SUMMARY | 2017-06-05 22:19 | XMS | Encounter Summary ---
Demographics + + + | Address | [address] | | | [place] [address] | + + + | Home Phone | | + + + | Preferred Language | Unknown | + + + | Marital Status | Single | + + + | Orthodoxy Affiliation | Unknown | + + + | Race | Unknown | + + + | Ethnic Group | Unknown | + + + Author + + + | Author | [facility] | | | and [place] | + + + | Organization | [facility] | | | and [place] | + + + | Address | Unknown | + + + | Phone | Unavailable | + + + Support + + + + + | Name | Relationship | Address | Phone | + + + + + | Poncho Oquendo | ECON | [address] | | | | | [place] | | | | | [address] | | + + + + + | Marta Upton | ECON | [place] | | | | | [address] | | + + + + + Care Team Providers + +------+ + | Care Manager Strategy & Account Name | Role | Phone | + [...] | | | ONCOLOGY CLINIC [address] | [facility] | | | | | [facility] | [place] [address] | | | | | [place] [address] | [phone] | | | | | [phone] | | | +--------+ + + + [...]
--- OUTSIDE RECORDS SUMMARY | 2017-06-05 22:19 | XMS | Encounter Summary ---
Demographics + + + | Address | [address] | | | [place] [address] | + + + | Home Phone | | + + + | Preferred Language | Unknown | + + + | Marital Status | Single | + + + | Restorationism Affiliation | Unknown | + + + | Race | Unknown | + + + | Ethnic Group | Unknown | + + + Author + + + | Author | [facility] | | | and [place] | + + + | Organization | [facility] | | | and [place] | + + + | Address | Unknown | + + + | Phone | Unavailable | + + + Support + + + + + | Name | Relationship | Address | Phone | + + + + + | Poncho Oquendo | ECON | [address] | | | | | [place] | | | | | [address] | | + + + + + | Marta Upton | ECON | [place] | | | | | [address] | | + + + + + Care Team Providers + +------+ + | Care Marine Propulsion Technician Name | Role | Phone | [...] | | | Q IS OUT- | [id number] | | | | | | PATIENT IS | CONFEDERATED | | | | | | FROM [facility]- | WAY | | | | | | LABS/PORT | [place], | | | | | | [address] | [place] [address] | | | | | | Procedures | Phone: | | | | | | [facility] | [phone] | | | | | | FOLLOW UP | Fax: | | | | | | | [phone] | | +--------+--------+ + + + + Encounter Details +--------+ + + + + | Date | Type | Department | Care Team | Description | +--------+ + + + + | 05/20/ | Hospital | [facility] | Vladimir Robles, | Gallbladder cancer, | | 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 | MED CTR MEDICAL | MD | carcinoma (HCC) | | | | ONCOLOGY CLIN[address] | | (Primary Dx); Liver | | | | [place] | | metastases (HCC); | | | | [place] [address] | | Stage 3a chronic | | | | [phone] | | kidney disease; | | | [...] different from the original. Hematology-Oncology Progress Note [facility] Pt. Name/Age/: Aura Upton 56 y.o. 1960 CSN: [id number] Date of service: 05/20/2017 Provider: Vladimir Robles [...] adjustment of her ch emotherapy, specifically the cis-crow given her renal dysfunction. 1. Proceed with day 1, cycle 1 of dose adjusted cis-crow and gemcitabine as ordered. 2. Increase OxyContin [...] nausea, has decided to t ry palliative cis-crow/gemcitabine again to which she has responded in the past. Ended up in the emergency room yesterday in [place] with nausea and vomiting, responded to ondan [...] and 6 hour treatment, labs done in [place] ER. My chart: Medications: Current Outpatient Prescriptions [...] this chart may have been created with [employer] voice recognition software. Occasi onal wrong-word or [...]
--- OUTSIDE RECORDS SUMMARY | 2017-06-05 22:19 | XMS | Encounter Summary ---
Demographics + + + | Address | [address] | | | [place] [address] | + + + | Home Phone | | + + + | Preferred Language | Unknown | + + + | Marital Status | Single | + + + | Gnosticism Affiliation | Unknown | + + + | Race | Unknown | + + + | Ethnic Group | Unknown | + + + Author + + + | Author | [facility] | | | and [place] | + + + | Organization | [facility] | | | and [place] | + + + | Address | Unknown | + + + | Phone | Unavailable | + + + Support + + + + + | Name | Relationship | Address | Phone | + + + + + | Poncho Oquendo | ECON | [address] | | | | | [place] | | | | | [address] | | + + + + + | Marta Upton | ECON | [place] | | | | | [address] | | + + + + + Care Team Providers + +------+ + | Care Nuclear Weapons Specialist Name | Role | Phone | + +------+ + | Valeiry Carmona DO | PCP | | + [...] 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, | [address] [place]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 | MD [address] | [place], | | | | | (HCC) | [address] | [place] [address] | | | | | Procedures | [place], | Phone: | | | | | [place] | [place] [address] | [phone] | | | | | DIPHENHYDRAM | Phone: | Fax: | | | | | INE HCL | [phone] | [phone] | | | | | INJECTIO, 50 | Fax: | | | | | | MG [place] | [phone] | | | | | | ONDANSETRON | | | | | | | HCL | | | | | | | INJECTION, 1 | | | | | | | MG [place] | | | | | | | DEXAMETHASON | | | | | | | E SODIUM | | | | | | | PHOS, 1 MG | | | | | | | [place] | | | | | | | FOSAPREPITAN | | | | | | | T INJECTION, | | | | | | | 1 MG NV | | | | | | | LORAZEPAM | | | | | | | INJECTION, 2 | | | | | | | MG NV | | | | | | | GEMCITABINE | | | | | | | HCL | | | | | | | INJECTION, | | | | | | | 200 MG NV | | | | | | | CISPLATIN 10 | | | | | | | MG | | | | | | | INJECTION | | | | | | | NV | | | | | | | METHYLPREDNI | | | | | | | SOLONE | | | | | | | INJECTION, | | | | | | | 125 MG NV | | | | | | | ADRENALIN | | | | | | | EPINEPHRINE | | | | | | | INJECT, .1 | | | | | | | MG NV | | | | | | | FILGASTIM | | | | | | | (ZARXIO) 300 | | | | | | | MCG/0.5ML | | | | | | | SOSY, PER 1 | | | | | | | MCG NV | | | | | | | INJECTION, | | | | | | | FAMOTIDINE, | | | | | | | 20 MG NV | | | | | | | NORMAL | | | | | | | SALINE | | | | | | | SOLUTION | | | | | | | INFUS, 500 | | | | | | | ML NV | | | | | | | NORMAL | | | | | | | SALINE | | | | | | | SOLUTION | | | | | | | INFUS, 250 | | | | | | | ML NV | | | | | | | STERILE | | | | | | | WATER/SALINE | | | | | | | , 10 ML NV | | | | | | | CHEMOTHER, | | | | | | | IV PUSH,EA | | | | | | | ADD DRUG NV | | | | | | | CHEMOTHER, | | | | | | | IV INFUSION, | | | | | | | 1 HR NV | | | | | | | CHEMOTHER, | | | | | | | IV INFUSION, | | | | | | | EA HR NV | | | | | | | CHEMOTHER,NO | | | | | | | N-HORMONE | | | | | | | ANTI-NEOPL, | | | | | | | SUB-Q/IM NV | | | | | | | [...] + + | 05/20/ | Hospital | [facility] | Vladimir Robles, | Gallbladder cancer, | | 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 | MED CTR CHEMO | MD | carcinoma (HCC) | | | | INFUSION [address] | | | | | | [place], | | | | | | [place] [address] | | | | | | [phone] | | | +--------+ + + + [...] + + + as of this encounter Medications at Time of Discharge [...] tablets by | 150 | 0 | 05/21/19 | | | (DILAUDID) 2 mg | mouth every 3 hours | tablet | | 18 | | | tablet | as needed. | | | | | + + +--------+---------+ + + | LORazepam (ATIVAN) | Take 1 tablet by | 40 | 5 | 05/21/19 | | | 1 mg | mouth [...] + as of this encounter Progress Notes Sasha Renee, RN - 05/20/2017 1323 [address] nausea resolved discharged in stable c ondition to follow up in [place] as scheduled.in this encounter Plan of Treatment Not on fileas of this encounter Results LABS - EXTERNAL SCAN (05/19/2017) + + | Narrative | + + | Ordered by an unspecified provider. | + + in this encounter Visit Diagnoses + + | Diagnosis | + + | Gallbladder cancer, carcinoma (HCC) | + + | Malignant neoplasm of gallbladder | + + Administered Medications + +---------+ +-------+--------+------+ | Medication Order | MAR | Action | Dose | Rate | Site | | | Action | Date | | | | + +---------+ +-------+--------+------+ | CISplatin (PLATINOL) 29 mg in | New Bag | 05/20/2017 | 29 mg | 514.5 | | | sodium chloride 0.9% 1,000 mL | | 11:10 | | mL/hr | | | infusion 29 mg (rounded from | | PDT | | | | | 28.8 mg = 16 mg/m2 | | | | | | | 1.8 m2 Order-specific BSA), | | | | | | | Intravenous, Administer over 2 | | | | | | | Hours, ONCE, 05/20/17 at 1115, | | | | | | | For 1 dose, Chemotherapy: Use | | | | | | | appropriate handling precautions. | | | | | | | Vesicant. Protect from light. | | | | | | + +---------+ +-------+--------+------+ +---+---+ | | | +---+---+ + +-------+ +-------+---+---+ | diphenhydrAMINE (BENADRYL) | Given | 05/20/2017 | 25 mg | | | | injection 25 mg 25 mg, | | 9:39 | | | | | Intravenous, ONCE, 05/20/17 at | | PDT | | | | | 1000, For 1 dose | | | | | | + +-------+ +-------+---+---+ +---+---+ | | | +---+---+ + +---------+ +--------+-------+---+ | fosaprepitant (EMEND) 150 mg in | New Bag | 05/20/2017 | 150 mg | 500 | | | sodium chloride 0.9% 250 mL IVPB | | 9:49 | | mL/hr | | | 150 mg, Intravenous, Administer | | PDT | | | | | over 30 Minutes, ONCE, Fri | | | | | | | 05/20/17 at 1000, For 1 dose, Do | | | | | | | not shake bag. Administer prior | | | | | | | to chemotherapy. | | | | | | + +---------+ +--------+-------+---+ +---+---+ | | | +---+---+ + +---------+ + +-------+---+ | gemcitabine (GEMZAR) 1,100 mg | New Bag | 05/20/2017 | 1,100 mg | 500 | | | in sodium chloride 0.9% 221.06 mL | | 10:37 | | mL/hr | | | infusion 1,100 mg, Intravenous, | | PDT | | | | | Administer over 30 Minutes, | | | | | | | ONCE, 05/20/17 at 1045, For 1 | | | | | | | dose, 640 mg/m2= 1152 mg; rounded | | | | | | | to 1100 mg per rounding protocol | | | | | | | Chemotherapy: Use appropriate | | | | | | | handling precautions. Do not | | | | | | | refrigerate. | | | | | | + +---------+ + +-------+---+ +---+---+ | | | +---+---+ + +-------+ +-------+---+---+ | heparin 100 units/mL flush | Given | 05/20/2017 | 500 | | | | injection 500 Units 500 Units (5 | | 13:19 | Units | | | | mL), Intercatheter, PRN, Line | | PDT | | | | | Care, Starting Tue05/20/17 at 0930 | | | | | | + +-------+ +-------+---+---+ +---+---+ | | | +---+---+ + +-------+ +------+---+---+ | LORazepam (ATIVAN) injection | Given | 05/20/2017 | 1 mg | | | | 0.5-1 mg 0.5-1 mg, Intravenous, | | 12:39 | | | | | PRN, Anxiety, Nausea/Vomiting, | | PDT | | | | | Starting Tue05/20/17 at 1236, For | | | | | | | 1 dose, Administer prior to | | | | | | | chemotherapy. | | | | | | + +-------+ +------+---+---+ +---+---+ | | | +---+---+ + +---------+ +---+--------+---+ | ondansetron (ZOFRAN) 8 mg, | New Bag | 05/20/2017 | | 217.6 | | | dexamethasone (DECADRON) 4 mg in | | 10:18 | | mL/hr | | | sodium chloride 0.9% 50 mL IVPB | | PDT | | | | | Intravenous, Administer over 15 | | | | | | | Minutes, ONCE, 05/20/17 at | | | | | | | 1000, For 1 dose | | | | | | + +---------+ +---+--------+---+ +---+---+ | | | +---+---+ in this encounter"
--- OUTSIDE RECORDS SUMMARY | 2017-06-05 22:19 | XMS | Encounter Summary ---
Demographics + + + | Address | [address] | | | [place] [address] | + + + | Home Phone | | + + + | Preferred Language | Unknown | + + + | Marital Status | Single | + + + | Amish Affiliation | Unknown | + + + | Race | Unknown | + + + | Ethnic Group | Unknown | + + + Author + + + | Author | [facility] | | | and Eduardoana | + + + | Organization | [facility] | | | and Eduardoana | + + + | Address | Unknown | + + + | Phone | Unavailable | + + + Support + + + + + | Name | Relationship | Address | Phone | + + + + + | Poncho Oquendo | ECON | [address] | | | | | [place] | | | | | [address] | | + + + + + | Marta Upton | ECON | [place] | | | | | [address] | | + + + + + Care Team Providers + +------+ + | Care Pool Cleaner Name | Role | Phone | + [...] 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, | [address] [place]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 | MD [address] | [place], | | | | | (HCC) | [address] | [place] [address] | | | | | Procedures | [place], | Phone: | | | | | [place] | [place] [address] | [phone] | | | | | DIPHENHYDRAM | Phone: | Fax: | | | | | INE HCL | [phone] | [phone] | | | | | INJECTIO, 50 | Fax: | | | | | | MG [place] | [phone] | | | | | | ONDANSETRON | | | | | | | HCL | | | | | | | INJECTION, 1 | | | | | | | MG MS | | | | | | | DEXAMETHASON | | | | | | | E SODIUM | | | | | | | PHOS, 1 MG | | | | | | | MS | | | | | | | FOSAPREPITAN | | | | | | | T INJECTION, | | | | | | | 1 MG MS | | | | | | | LORAZEPAM | | | | | | | INJECTION, 2 | | | | | | | MG MS | | | | | | | GEMCITABINE | | | | | | | HCL | | | | | | | INJECTION, | | | | | | | 200 MG MS | | | | | | | CISPLATIN 10 | | | | | | | MG | | | | | | | INJECTION | | | | | | | MS | | | | | | | METHYLPREDNI | | | | | | | SOLONE | | | | | | | INJECTION, | | | | | | | 125 MG MS | | | | | | | ADRENALIN | | | | | | | EPINEPHRINE | | | | | | | INJECT, .1 | | | | | | | MG MS | | | | | | | FILGASTIM | | | | | | | (ZARXIO) 300 | | | | | | | MCG/0.5ML | | | | | | | SOSY, PER 1 | | | | | | | MCG MS | | | | | | | INJECTION, | | | | | | | FAMOTIDINE, | | | | | | | 20 MG MS | | | | | | | NORMAL | | | | | | | SALINE | | | | | | | SOLUTION | | | | | | | INFUS, 500 | | | | | | | ML MS | | | | | | | NORMAL | | | | | | | SALINE | | | | | | | SOLUTION | | | | | | | INFUS, 250 | | | | | | | ML MS | | | | | | | STERILE | | | | | | | WATER/SALINE | | | | | | | , 10 ML MS | | | | | | | CHEMOTHER, | | | | | | | IV PUSH,EA | | | | | | | ADD DRUG MS | | | | | | | CHEMOTHER, | | | | | | | IV INFUSION, | | | | | | | 1 HR MS | | | | | | | CHEMOTHER, | | | | | | | IV INFUSION, | | | | | | | EA HR MS | | | | | | | CHEMOTHER,NO | | | | | | | N-HORMONE | | | | | | | ANTI-NEOPL, | | | | | | | SUB-Q/IM MS | | | | | | | [...] + + | 05/20/ | Hospital | [facility] | Vladimir Robles, | Gallbladder cancer, | | 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 | MED CTR CHEMO | MD | carcinoma (HCC) | | | | INFUSION [address] | | | | | | [place], | | | | | | [place] [address] | | | | | | [phone] | | | +--------+ + + + [...] stable c ondition to follow up in [place] as scheduled.in this encounter Plan of Treatment [...]
--- OUTSIDE RECORDS SUMMARY | 2017-06-05 22:20 | XMS | Encounter Summary ---
Demographics + + + | Address | [address] | | | [place] [address] | + + + | Home Phone | | + + + | Preferred Language | Unknown | + + + | Marital Status | Single | + + + | Taoism Affiliation | Unknown | + + + | Race | Unknown | + + + | Ethnic Group | Unknown | + + + Author + + + | Author | [facility] | | | and [place]ardo[place] | + + + | Organization | [facility] | | | and [place]ardo[place] | + + + | Address | Unknown | + + + | Phone | Unavailable | + + + Support + + + + + | Name | Relationship | Address | Phone | + + + + + | Poncho Oquendo | ECON | [address] | | | | | [place] | | | | | [address] | | + + + + + | Marta Upton | ECON | [place] | | | | | [address] | | + + + + + Care Team Providers + +------+ + | Care Storage Facility Housekeeper Name | Role | Phone | + +------+ + | Valeriy Carmona DO | PCP | | + +------+ + Encounter Details +--------+ + + + + | Date | Type | Department | Care Team | Description | +--------+ + + + + | 05/13/ | Orders Only | [facility] | Marcelina Johnson, | | | 2017 | | MED CTR CHEMO | RN | | | | | INFUSION [address] | | | | | | [place], | | | | | | [place] [address] | | | | | | [phone] | | | +--------+ + + + [...]
--- OUTSIDE RECORDS SUMMARY | 2017-06-05 22:20 | XMS | Encounter Summary ---
Demographics + + + | Address | [address] | | | [place] [address] | + + + | Home Phone | | + + + | Preferred Language | Unknown | + + + | Marital Status | Single | + + + | Pentecostalism Affiliation | Unknown | + + + | Race | Unknown | + + + | Ethnic Group | Unknown | + + + Author + + + | Author | [facility] | | | and Eduardoana | + + + | Organization | [facility] | | | and Eduardo[place] | + + + | Address | Unknown | + + + | Phone | Unavailable | + + + Support + + + + + | Name | Relationship | Address | Phone | + + + + + | Poncho Oquendo | ECON | [address] | | | | | [place] | | | | | [address] | | + + + + + | Marta Upton | ECON | [place] | | | | | [address] | | + + + + + Care Team Providers + +------+ + | Care Filling Carrier Name | Role | Phone | + [...] | | | ONCOLOGY CLINIC [address] | [facility] | | | | | [address] | [place] [address] | | | | | [place] [address] | [phone] | | | | | [phone] | | | +--------+ + + + [...]
--- OUTSIDE RECORDS SUMMARY | 2017-06-05 22:20 | XMS | Encounter Summary ---
Demographics + + + | Address | [address] | | | [place] [address] | + + + | Home Phone | | + + + | Preferred Language | Unknown | + + + | Marital Status | Single | + + + | Pentecostal Affiliation | Unknown | + + + | Race | Unknown | + + + | Ethnic Group | Unknown | + + + Author + + + | Author | [facility] | | | and Eduardoana | + + + | Organization | [facility] | | | and Eduardoana | + + + | Address | Unknown | + + + | Phone | Unavailable | + + + Support + + + + + | Name | Relationship | Address | Phone | + + + + + | Poncho Oquendo | ECON | [address] | | | | | [place] | | | | | [address] | | + + + + + | Marta Upton | ECON | [place] | | | | | [address] | | + + + + + Care Team Providers + +------+ + | Care Medical Policy Specialist Name | Role | Phone | [...] [address] [place] | | | | | [place], | [place] [address] | | | | | [place] [address] | [phone] | | | | | [phone] | | | +--------+ + + + [...]
[2017-06-06] MEDS ORDERED: OXYCODONE HCL10 MG PO (00:29)
[2017-06-06] MEDS ORDERED: LORAZEPAM1 MG PO (00:29)
[2017-06-06] MEDS ORDERED: OXYCODONE HCL5 MG PO (00:30)
--- NOTE | 2017-06-06 02:56 | NUR ---
PT ARRIVED TO ROOM 114 AT 0207 FROM ED. VIA STRETCHER. HAS AN LEFT SIDED PORT THAT WAS ACCESSED IN THE ER. PT COOPERATIVE WITH ADMIT ASSESSMENT. DILAUDID INSTRUMENTATION INSTRUCTOR UNAVAILABLE, NEW ORDERS TO START INSTRUMENTATION INSTRUCTOR MORPHINE OBTAINED FROM DR MILLER. PROCEDURE EXPLAINED TO PT
--- NOTE | 2017-06-06 04:45 | NUR ---
ARRIVED TO FLOOR FROM ED, DX SBO. NO EMESIS SINCE ARRIVAL. SUPERVISOR TUNNEL HEADING MORPHINE IN PLACE, WITH GOOD PAIN RELIEF AT THIS TIME. ABD DISTENDED, BRIE. HAS URETER STEND WITH DRAINAGE BAG ON LEFT SIDE, PATENT, DRAINING YELLOW URINE. ALERT AND ORIENTED. HO OTHER C/O AT THIS TIME. ON ROOM AIR, AT BEDSIDE
--- NOTE | 2017-06-06 06:39 | NUR ---
VITALS AND I&OS DONE AND CHARTED. GARBAGES EMPTIED AND ROOM PICKED UP.
--- NOTE | 2017-06-06 06:50 | NUR ---
PT AWAKENS EASILY. NO C/O PAIN, "YUSUF COMFORTABLE STATED". STILL CLEANER MORPHINE WITH GOOD PAIN RELIEF. PT USED 8MG STILL CLEANER MORPHINE. L URETHER BAG EMPIED OF 45CC DRAINAGE. PT WANTS TO RESTART HER HOME TX OF FLUSHING URETHER CATHERER BAG WITH 40CC WATER Q8H SHE PREVIOUSLY WAS DOING IT AT HOME. NOTE LEFT FOR MD TO REASSESS PT REQUESTS. PT ALSO WANTS TO HAVE WATER. PT INSTRUCTED ON WHY SHE IS NPO, AND REASONS WHY. PT HAS MOUTH SWABS AT BEDSIDE. NOTE LEFT FOR MD. AT BEDSIDE.
--- NOTE | 2017-06-06 07:52 | NUR ---
pt awake lying in bed. sleeping on couch. patient assisted up to bathroom with nurse aids. patient reports peg tube last flushed at 0400 and has previously tried to administer medications through it at home. standby assist.
--- NOTE | 2017-06-06 08:00 | NUR ---
Patient up to bathroom, back to bed. Patient washed hands and face with wash cloth. Patient refused shower and wipe down today. Patients family member in room. Patient given small cup of water with oral swabs. Call light in reach. HYDRAULIC ELEVATOR CONSTRUCTOR in reach. No other needs at this time.
--- NOTE | 2017-06-06 09:59 | NUR ---
IVF CHANGED TO CURRENT ORDER. DRESSING REMOVED AROUND PEG TUBE ON ABDOMEN. CLEANED AROUND SITE WITH ALCOHOL SWABS. SITE LOOKS C/D/I. HEALING WELL. MORPHINE QUALITY ASSURANCE QA LAB TECHNICIAN IN PLACE. PROVIDED CLEAR LIQUIDS REQUESTED. FAMILY AT BEDSIDE. CONTINUOUS PULSE OX STARTED PER POLICY FOR PATIENTS USING QUALITY ASSURANCE QA LAB TECHNICIAN. VITALS SIGNS AND I&Os CHARTED BY THIS RN TO ALLOW INFREQUENT INTERRUPTIONS BY CARE STAFF.
--- NOTE | 2017-06-06 11:37 | NUR ---
VISITED WITH PT. SHE IS ALERT, ORIENTED AND SUPPORTED BY HER MOM. PT EXPRESSED SOME OPTIMISM THAT SHE DID NOT FEEL LAST WEEK. NOT IN MUCH PAIN, AND DR SAVAGE HAS GIVEN HER ENOUGH INFO THAT SHE FEELS THERE IS DIRECTION. HER SON ALSO CAME BY FOR THE FIRST TIME, AND FINALLY FOUND OUT FROM HIS MOTHER WHAT IS GOING ON. HE HAS BEEN IN DENIAL, AND HAS RUN RATHER THAN FACE UP TO WHAT HIS MOTHER IS FACING. PT REQUESTED PRAYER, WILL CONTINUE TO FOLLOW NEEDED
--- NOTE | 2017-06-06 14:25 | NUR ---
PATIENT UP TO BATHROOM SINK BRUSHING TEETH AND WASHING FACE.
--- NOTE | 2017-06-06 14:38 | NUR ---
PATIENT RESTING IN BED. PATIENTS OXYGEN LEVEL DIPPED DOWN TO 85 WHILE SLEEPING. PATIENT IS NOW 94% ON 1L NC. FRESH ICE BROUGHT INTO PATIENT. CALL BUTTON IN REACH. NO OTHER NEEDS AT THIS TIME.
--- NOTE | 2017-06-06 16:45 | NUR ---
PATIENT RESTING IN BED. PATIENT'S MOM IN ROOM VISITING. THIS DIRECTOR HR COMMUNICATIONS EMPTIED G TUBE. FRESH ICE AND JUICE BROUGHT FOR PATIENT. BOTTLED WATER BROUGHT IN FOR PATIENTS MOTHER. CALL BUTTON IN REACH. NO OTHER NEEDS AT THIS TIME.
--- NOTE | 2017-06-06 17:16 | NUR ---
FLUSHED PEG TUBE WITH 40ML TAP WATER AND CHANGED DRAINAGE BAG. DR SAVAGE TO SEE PATIENT STILL TONIGHT.
--- NOTE | 2017-06-06 18:10 | NUR ---
PATIENT HAD GOOD DAY. JANETTE TO STILL SEE PATIENT TONIGHT. PEG TUBE LUQ. BUTTON AT SKIN LOOKS GOOD. SKIN HEALING WELL. NUMBER "6" VISIBLE ABOVE BUTTON. FLUSHED WITH 40ML TAP WATER AT 1700. REPLACED DRAINAGE BAG. MORPHINE CUSTOM SKI MAKER. [id number]. SBA. 1-2L O2 WHEN ASLEEP.
--- NOTE | 2017-06-06 20:02 | NUR ---
BEDSIDE REPORT RECEIVED FROM DANIKA NYE. PT AWAKE, SITTING UP IN BED, ON 1L OXYGEN. IVF INFUSING AT 125 IN PORT WNL. PEG TUBE DRAINING BAG. PT ON CLEAR LIQUID DIET, DENIES NAUSEA. PT STATES PAIN WELL CONTROLLED W SENIOR BACK END JAVA DEVELOPER PUMP. GIVEN ICE WATER REQUESTED. CALL LIGHT IN REACH. NO ADDL REQUESTS.
--- NOTE | 2017-06-06 20:05 | NUR ---
DR. SAVAGE PHONED BY RN PARRIS. UPDATED ON URINE OUTPUT, PEG TUBE DRAINAGE. VERBAL ORDER TO PLUG PEG TUBE AND MONITOR.
--- NOTE | 2017-06-06 20:35 | NUR ---
PT'S TUBE CLAMPED AT THIS TIME BY FLOAT DANIKA LIVINGSTON. PT DRINKING ENSURE, INSTRUCTED TO DRINK SLOWLY. NO C/O NAUSEA FOR RN YARA.
--- NOTE | 2017-06-06 21:30 | NUR ---
PT ASSESSMENT COMPLETE AT THIS TIME, VITALS STABLE. PEG TUBE CLAMPED, PT BURPING, DENIES NAUSEA. BOWEL TONES ACTIVE IN RUQ, RLQ, HYPOACTIVE OTHERWISE. ABDOMEN SOFT, PT STATES PAIN IS MOSTLY IN LOWER ABDOMEN W PALPATION. PT USING RESPIRATORY SCIENTIST PUMP FOR PAIN CONTROL. LUNGS CLEAR, DIMINISHED BILATERALLY BASES. PT GIVEN ENSURE, INSTRUCTED TO DRINK SLOWLY, CALL IF EXPERIENCING NAUSEA, DISCOMFORT. CALL LIGHT IN REACH.
--- NOTE | 2017-06-06 22:30 | NUR ---
CALL LIGHT ANSWERED, PT C/O BURPING, PEG TUBE OPENED BY PT AT THIS TIME. PT EMPTIED WITH RN ASSIST 600 MLS. PT DENIES NAUSEA BUT STATES BURPING WAS INCREASING. TUBE CLAMPED FOR TWO HOURS. PT TO CLAMP TUBE AGAIN AND DRINK CLEAR ENSURE. CALL LIGHT IN REACH, WILL CONTINUE TO MONITOR. IVF INFUSING. BELLOWS ASSEMBLER PUMP WITH MORPHINE IN PLACE.
--- NOTE | 2017-06-07 00:42 | NUR ---
CHECKED ON PT, PT APPEARS TO BE SLEEPING AT THIS TIME, 1L OXYGEN BY NC ON, SPO2 97%, EYES CLOSED, BREATHING NON-LABORED, IVF INFUSING. CALL LIGHT NEXT TO PT.
--- NOTE | 2017-06-07 03:22 | NUR ---
IN PT ROOM, VITALS COMPLETE. SBA TO RESTROOM FOR 200 ML CONCENTRATED VOID. LUNGS CLEAR THROUGHOUT ALL LOBES. PT USING ASSISTANT ACCOUNTING MANAGER PUMP FOR PAIN, BOWEL TONES ACTIVE X 4, ABD SOFT, NONTENDER W LIGHT PALPATION. NEW IV BAG INFUSING PORT. SCDS ON. PT GIVEN GRAPE JUICE, ICE WATER FOR COMFORT REQUESTING PEG TUBE DRAIN BAG BE OPEN AT THIS TIME WAS CLOSED FOR LAST FOUR HOURS. CALL LIGHT IN REACH. DRAIN EMPTIED FOR 350 MLS BY PT. NO ADDL REQUESTS, LIGHTS OFF IN ROOM.
--- NOTE | 2017-06-07 04:40 | NUR ---
FINANCE BUSINESS PARTNER PUMP REPLACED AT THIS TIME, PT REPORTS PAIN IS 6/10 IN ABDOMEN, CONSTANT PRESSURE. PEG TUBE EMPTIED 550 ML BY PT. PT CLAMPED TUBE AT THIS TIME, DENIES NAUSEA. PLAN TO HAVE MORE ENSURE AT 1510 AND EVALUATE DIGESTION WITH TUBE CLAMPED PER PLAN W PT. PT ENCOURAGED TO LEAVE TUBE CLAMP, DRINK SLOWLY. CALL LIGHT IN REACH, SCDS ON, IVF INFUSING PORT WNL.
--- NOTE | 2017-06-07 05:20 | NUR ---
IN PT ROOM TO GIVE PT ENSURE. PEG TUBE CLAMPED AT THIS TIME. PT ASSISTED TO REPOSITION WITH PILLOWS TO FACILITATE DIGESTION. SCDS ON, PT 99% ON 1L OXYGEN BY NC. NO ADDL REQUESTS AT THIS TIME, CALL LIGHT IN REACH, PT USING CONSULTING SOLUTION MANAGER PUMP RATES PAIN 6/10 IN LOWER ABD.
--- NOTE | 2017-06-07 06:22 | NUR ---
PAIN CONTROLLED WITH MORPHINE GLOBAL MOBILITY SPECIALIST PUMP. PEG TUBE CLAMPED TOLERATED, PT ENCOURAGED TO KEEP TUBE CLAMPED, PT SELF UNCLAMPING DUE TO BURPING WITH ORAL INTAKE. REPOSITIONED ON SIDE TO FACILITATE DIGESTION. PT HAS DENIED NAUSEA THROUGHOUT SHIFT. BTS ACTIVE X 4, ABDOMEN SOFT, NON-DISTENDED. IVF INFUSING WNL IN PORT, SCDS ON.
--- NOTE | 2017-06-07 07:40 | NUR ---
BEDSIDE REPORT RECEIVED FROM EUGENIO GARNICA. WHITE BOARD UPDATED. PEG TUBE CLAMPED NOW. HAS BEEN CLAMPED SINCE 0500. TOLERATING WELL. PT CONCERNED ABOUT NUTRITION. CONTINUES TO BE ON CLEAR LIQUID DIET. FENTANYL PATCH RIGHT ARM NEEDS CHANGED TODAY-- NEED ORDER FROM JANETTE.
--- NOTE | 2017-06-07 09:14 | NUR ---
PATIENT UP TO BATHROOM SINK WASHING HER FACE AND HANDS AND BRUSHING HER TEETH. ROOM CLUTTER PICKED UP BY THIS SMALLTALK DEVELOPER. FRESH ICE CHIPS GIVEN TO PATIENT. PATIENT WOULD POSSIBLY LIKE A SHOWER THIS AFTERNOON AFTER SEEING . NO OTHER NEEDS AT THIS TIME.
--- NOTE | 2017-06-07 09:58 | NUR ---
SPOKE WITH MAVIS, 5TH GRADE TEACHER, ABOUT THIS RNs CONCERNS ABOUT PATIENTS FREQUENT CONCERNS FOR NUTRITION AND CHANGES IN PLAN OF CARE. PATIENT REPORTED TO THIS RN THAT SHE WANTED TO DISCONTINUE THE FENTANYL PATCH RATHER THAN REPLACE IT WITH A NEW PATCH. EDUCATED PATIENT THAT SHE MAY NOT FEEL THAT IT IS WORKING BECAUSE SHE HAS HAD THE MORPHINE DOCUMENT MANAGER. HAS FREQUENT QUESTIONS ABOUT OPTIONS FOR RELIEF OF ABDOMINAL DISCOMFORT AND HOW TO GET NUTRITION. MAVIS, 5TH GRADE TEACHER, WILL BRAINSTORM PLAN. DR SAVAGE INFORMED OF PATIENTS CONCERNS.
--- NOTE | 2017-06-07 10:30 | NUR ---
PATIENT BACK TO BED FROM THE BATHROOM. PATIENT TALKING ON PHONE TO HER MOTHER. PATIENT TEARFUL AND ASKED IF IS HERE. PATIENT WOULD LIKE TO REST AND NOT TO BE DISTURBED UNLESS IT'S . RN NOTIFIED.
--- NOTE | 2017-06-07 11:38 | NUR ---
E/M ENGINEER CLEARED WITH MARISEL GARNICA. 28.9ML CLEARED FROM PUMP. IVF INFUSING INTO PORT.
--- NOTE | 2017-06-07 11:56 | HP ---
[facility] [address], [place] [address] Signed ADMISSION DATE: 06/06/2017 REASON FOR ADMISSION: Abdominal distention and pain and dehydration, known cholangiocarcinoma, and history of gallbladder cancer. HISTORY OF PRESENT ILLNESS: This 56-year-old woman presented to the emergency room after having copious amounts of bowel movements, which is quite unusual for her. She also had sharp mid abdominal pain. She presented to the emergency room where she was evaluated by Dr. Celaya. It is noted that she underwent PEG tube placement by me Tuesday (three days previously) as a palliative decompressive approach to gastric distention. She was thought to have probable gastric dysmotility, but also known to have carcinomatosis to some degree related to cholangiocarcinoma. She has undergone cholecystectomy for finding of gallbladder cancer and subsequent right hepatic lobectomy (I believe), which has been treated with adjuvant chemotherapy and other agents, but which has shown progression of disease over the past 2 months. She was admitted previously for small bowel obstruction seen by Dr. Hassan and consulted on by Dr. Dubon. I was called by Dr. Najera about 2 weeks ago for consideration of a PEG tube for decompression of her stomach, which was accomplished without complication a few days ago. She has been venting the stomach and has not had vomiting per se, which of course is a benefit. The effluent from the gastrostomy tube does have bile staining. Therefore, there is continuity of filling the stomach and the duodenum. A CT scan was performed last night at my insistence despite her having two CT scans in the past 2 months already, mostly to see that there has been no complication associated with the PEG tube. The PEG tube was well positioned and appears to be highly functional and patent. The patient has been considered to have in stages of her cholangiocarcinoma related to gallbladder cancer and increasing failure of her therapeutic interventions. The patient's own view of the problem is she knows that it is not curable, but she does want to optimize quality and length of life. She has left otherwise. REVIEW OF SYSTEMS: She is feeling much better since IV hydration has been initiated this morning. She does Electronically Signed By: KETURAH SAVAGE MD 06/07/17 1156 PATIENT NAME: MARIA ELENA CORBIN HISTORY AND PHYSICAL DATE OF : 62 REPORT #: [id number] PHYSICIAN: KETURAH SAVAGE MD PCP: ASHLEY BAY MD REPORT IS CONFIDENTIAL AND NOT TO BE RELEASED WITHOUT AUTHORIZATION [facility] [address] [place], [place] [address] Signed not have much in the way of abdominal pain at this time. She has had no blood per rectum and definitely, no emesis or hematemesis. PHYSICAL EXAMINATION: GENERAL: A pleasant woman, who does not look to be distressed at this time. HEENT: Mucous membranes are reasonably moist. Trachea is midline. CHEST: Shows normal respiratory excursion without tachypnea. ABDOMEN: Broad and scaphoid without distention. A chevron incision and midline incision is noted. She does not have tenderness at the site of known incisional hernia above the umbilicus. The PEG tube is draining medium greenish thickened fluid. EXTREMITIES: No clubbing, cyanosis, or edema. LABORATORY STUDIES: Showed a white count of 8.5, hematocrit 35.3, and band forms were 28%, and platelet count 292,000. Electrolytes show a potassium of 2.6, creatinine 1.08, chloride 91, bicarb 30, and sodium 138. I have reviewed her CT scan in detail. The CT images showed good placement of the PEG tube port. The stomach is markedly decompressed compared to previously. There were some dilated loops of bowel within the abdominal cavity suggestive of incomplete obstruction. She does not have significant ascites. She does have a left basilar pleural effusion. ASSESSMENT: She has cholangiocarcinoma related to gallbladder cancer and has had significant interventions for the same. She appears to be failing her chemotherapeutic interventions and a palliative decompressive PEG tube was placed as a palliative maneuver. She was admitted on complaints of abdominal pain, clinical and subjective dehydration, and the PEG tube has been found to be functional and working to its intended purpose at this point. The patient has concerns about "nutritional status" and it is admitted that under the circumstances, progressive nutritional failure will ultimately lead to her demise. It was my understanding in discussion with Dr. Najera and subsequently with Dr. Hassan that she is in the end stages of her disease. I am not so sure. She is fully understanding that above has been discussed with her several times including with Dr. Hassan. For now, continued rehydration is appropriate and electrolyte correction. If there was a discrete obstructive process that could be bypassed by palliation or resection, I would certainly be willing to do so. It is notable I am leaving town tomorrow for remainder of the week and any definitive operation would have to be Electronically Signed By: KETURAH SAVAGE MD 06/07/17 1156 PATIENT NAME: MARIA ELENA CORBIN HISTORY AND PHYSICAL DATE OF : 62 REPORT #: [id number] PHYSICIAN: KETURAH SAVAGE MD PCP: ASHLEY BAY MD REPORT IS CONFIDENTIAL AND NOT TO BE RELEASED WITHOUT AUTHORIZATION [facility] [address] [place] [address] Signed deferred unless taken out by the covering surgeon, Dr. Dubon. PLAN: I would review the CT scan in more detail with the radiologist and additionally consider small-bowel follow-through to assess for patency or discrete obstruction particularly in relation to the incisional hernia. Alignment of goals of therapy needs to be more clear to all concerned. We both agree that minimizing suffering due to her end-stage disease and improving her functional capacity at home is a worthwhile goal with surgery or without. MD HILARIO Xavier/LISAL /[id number] cc: MD Latoya Crawford MD Robert C Quackenbush, MD Copies: JOSE MANUEL DUBON MD, CYNTHIA MD QUACKENBUSH, ROBERT C MD ~ Electronically Signed By: KETURAH SAVAGE MD 06/07/17 1156 PATIENT NAME: MARIA ELENA CORBIN HISTORY AND PHYSICAL DATE OF : 62 REPORT #: [id number] PHYSICIAN: KETURAH SAVAGE MD PCP: ASHLEY BAY MD REPORT IS CONFIDENTIAL AND NOT TO BE RELEASED WITHOUT AUTHORIZATION
--- NOTE | 2017-06-07 14:54 | NUR ---
PT RESTING IN BED, ALONE. SHE IS ALERT, ORIENTED AND EXCITED ABOUT HER BEST FRIEND ARRIVING TODAY FROM [facility]. PT PLANS TO VISIT WITH DR LARSEN WED. WILL MAKE DECISION ABOUT GROWTH OF TUMORS AND WHAT STEPS TO TAKE NEXT. HAD PRAYER WITH PT, AND TOLD HER I WILL STOP BY IN THE MORNING. SHE SMILED AND THANKED ME. WILL FOLLOW NEEDED
--- NOTE | 2017-06-07 15:07 | NUR ---
PATIENT UP TO BATHROOM, BACK TO BED WITH STANDBY ASSIST. PATIENT FLUSHED PEG TUBE AT SINK. PATIENT SITTING UP IN BED. FRESH ICE WATER AND GRAPE JUICE AT BEDSIDE TABLE. CALL LIGHT IN REACH. NO OTHER NEEDS AT THIS TIME.
--- NOTE | 2017-06-07 16:36 | NUR ---
pt resting quietly with lights dimmed and HOB raised. friend at bedside. PAPER FOLDING MACHINE OPERATOR Reported patient wished to speak with this RN about patient portal results. pt too sleepy at this time. will allow rest now.
--- NOTE | 2017-06-07 18:19 | NUR ---
PATIENT SITTING UP IN BED. FAMILY AND FRIENDS IN ROOM. PATIENT PEG TUBE DRAINED. RN STATES PATIENT HAD WIPE DOWN PREVIOUSLY. PATIENT CALL LIGHT IN REACH. NO OTHER NEEDS AT THIS TIME.
--- NOTE | 2017-06-07 19:00 | NUR ---
BEDSIDE REPORT RECEIVED FROM DANIKA NYE. PT AWAKE, SITTING UP IN BED. GIVEN VANILLA ENSURE REQUESED. PT C/O 07/24 INCREASING PAIN IN LEFT UPPER QUADRANT. PEG TUBE CLAMPED AT THIS TIME. PT TAKING BREAK FROM SCDS HAS HAD ON ALL DAY. NO REQUESTS AT THIS TIME.
--- NOTE | 2017-06-07 20:33 | NUR ---
PHONE CALL TO DR. DUBON, UPDATED ON PT REPORTED INCREASING PAIN IN ABD, TELEPHONE ORDER FOR OXYCODONE 20 MG BID, REPEATED BACK. MD ALSO ORDERED PT ON CONTINUOUS PULSE OXIMETRY.
--- NOTE | 2017-06-07 21:15 | NUR ---
SCHEDULED OXYCONTIN ADMINISTERED AT THIS TIME, PT RATES PAIN IN LOWER ABD. 08/23, CONTSTANT. SBA TO RESTROOM FOR VOID, BACK TO BED, SCDS ON. PORT FLUSHED, BLOOD RETURN, IVF INFUSING WNL. ABDOMEN SOFT, NONTENDER W PALPATION. PEG TUBE CLAMPED AT THIS TIME. PT DENIES ANY NAUSEA. PT ANXIOUS, CONCERNED WITH PAIN CONTROL, STATES FENTANYL PATCH IS NOT WORKING, "PEG TUBE HELPS RELIEVE DISTENTION NOT THE PAIN THAT HAS BEEN INCREASED SINCE TUESDAY IN LOWER STOMACH". PT CRYING, STATES SHE WILL GO SEE DR. RIGGINS IN THE MORNING IF NO ADDL PAIN MEDS ARE PRESCRIBED, CONCERNED WITH MANAGEMENT OF PAIN THIS EVENING. DISCUSSED PTS CONCERNS WITH PT, WILL PHONE MD TO DISCUSS ALTERNATIVE MEASURES. CALL LIGHT IN REACH.
--- NOTE | 2017-06-07 21:41 | NUR ---
PHONE CALL TO DR. DUBON, MESSAGE LEFT ON VOICEMAIL.
--- NOTE | 2017-06-07 21:46 | NUR ---
PHONE CALL RETURNED FROM DR. DUBON, INFORMED OF PT ANXIETY REGARDING PAIN CONTROL, PT CRYING, DOES NOT THINK FENTANYL IS EFFECTIVE. TELEPHONE ORDER FOR DILAUDID 2MG PO 1-3 TABLETS Q4H PRN PAIN, AND ATIVAN 1MG PO Q6H PRN ANXIETY. REMOVE FENTANYL PATCH. ORDERS READ BACK TO VERIFY.
--- NOTE | 2017-06-07 22:48 | NUR ---
PT APPEARS TO BE SLEEPING AT THIS TIME, BREATHING EVEN AND NON-LABORED, IVF INFUSING SCDS ON. PT SPO2 91% ON RA. EYES CLOSED, LIGHTS OFF IN ROOM. WILL CONTINUE TO MONITOR, CONT. PULSE OX ON.
--- NOTE | 2017-06-08 00:29 | NUR ---
CHECKED ON PT. PT APPEARS TO BE SLEEPING SPO2 92% ON RA, BREATHING NON-LABORED, CHEST RISE EQUAL BILATERALLY. IVF INFUSING. LIGHTS OFF IN ROOM.
--- NOTE | 2017-06-08 02:34 | NUR ---
CHECKED ON PT, PT CONTINUES TO SLEEP, EYES CLOSED, BREATHING NON-LABORED, SPO2 91% ON CONT. PULSE OXIMETRY. PT ALLOWED TO REST AT THIS TIME. PT REMOVED SCD'S. IVF INFUSING.
--- NOTE | 2017-06-08 04:40 | NUR ---
IN PT ROOM TO CHECK ON PT, BREATHING SHALLOW, NON-LABORED, PT OCCASIONALLY SNORING, SPO2 91% ON ROOM AIR. IVF INFUSING PORT. PT ALLOWED TO REST, APPEARS COMFORTABLE LIGHTS OFF IN ROOM.
--- NOTE | 2017-06-08 05:30 | NUR ---
CALL LIGHT ANSWERED, SBA TO RESTROOM FOR VOID. PT BACK IN BED, SCDS ON. IV INFUSING PORT. BOWEL TONES HYPOACTIVE X 4, ABDOMEN SOFT, PAIN IN LOWER ABDOMEN. LUNGS CLEAR THROUGHOUT ALL LOBES. DISCUSSED W PT PAIN MANAGEMENT ORDERS PUT IN AFTER PT ANXIOUS DURING NIGHT AND WAS ABLE TO SLEEP ALL NIGHT. PT STATES "I DON'T WANT TO BE ANYONE'S GUINEA PIG", CONCERNED WITH HOW REMOVING FENTANYL PATCH MAY FEEL AT THIS POINT, BUT UPSET THAT MORE PAIN MEDS WERE NOT ADDED IN CONJUNCTION WITH OXYCODONE BID ORDER AND FENTANYL. WILL UPDATE MD. CALL LIGHT IN REACH, PT GIVEN GRAPE JUICE REQUESTED.
--- NOTE | 2017-06-08 06:22 | NUR ---
PT ANXIOUS AT START OF SHIFT REGARDING PAIN CONTROL WAS ABLE TO SLEEP SOUNDLY THROUGHOUT SHIFT W FENTANYL PATCH AND OXYCONTIN ADMINISTRATION FOR PAIN CONTROL. PEG TUBE CLAMPED FROM 2100 TO 0600 W NO NAUSEA. BOWEL TONES ACTIVE. ABDOMEN SOFT, PEG TUBE SITE WNL. SCDS ON TOLERATED BY PT. CONT PULSE OX IN PLACE, ON ROOM AIR, SATURATIONS >90% THROUGHOUT SHIFT W SLEEP.
--- NOTE | 2017-06-08 07:20 | NUR ---
REPORT RECEIVED FROM REYMUNDO. ASSUMING PATIENT'S CARE AT THIS TIME. PATIENT APPEARS TO BE SLEEPING AT THE TIME OF REPORT. LIBRARY SCIENCE PROFESSOR NURSE AND THIS RN AGREED NOT TO WAKE PATIENT UP. WILL GO BACK TO INTRODUCE SELF TO PATIENT.
--- NOTE | 2017-06-08 07:31 | NUR ---
PHONE CALL TO DR. DUBON, UPDATED PT'S REQUEST TO KEEP FENTANYL PATCH ON. TELEPHONE ORDER FROM DR. DUBON TO REORDER 75 MCG FENTANYL PATCH, D/C DILAUDID ORDER. ORDER READ BACK.
--- NOTE | 2017-06-08 08:06 | NUR ---
Patient sitting up in bedside recliner. Linens readjusted on bed. Patient given warm wash cloth to wash hands and face. Oral care set up in bathroom. RN in room. call light in reach. No other needs at this time.
--- NOTE | 2017-06-08 09:00 | NUR ---
PATIENT ASSISTED TO BATHROOM AND THEN BACK TO CHAIR. PATIENT REPORTED THAT HER PAIN NEVER GOES AWAY. PATIENT WAS MEDICATED. SHIFT ASSESSMENT DONE. LUNGS ARE CLEAR, ACTIVE BOWEL TONES. PEG TUBE IN PLACE AND DRAINING STOMAC CONTENT. NO APPARENT DISTRESS NOTED AT THIS TIME. CALL LIGHT IN REACH. PATIENT IS TRYING TO EAT SOME OF HER BREAKFAST.
--- NOTE | 2017-06-08 09:46 | NUR ---
PATIENT UP TO BATHROOM, BACK TO BEDSIDE RECLINER. PEG BAG DRAINED. FRESH ICE WATER ON BEDSIDE TABLE. CALL LIGHT IN REACH. FRIENDS/FAMILY IN ROOM. NO OTHER NEEDS AT THIS TIME.
--- NOTE | 2017-06-08 11:15 | NUR ---
DR DUBON WAS IN ROOM TO SEE PATIENT.
--- NOTE | 2017-06-08 12:03 | NUR ---
Patient set up in shower. Patient understands to call for help when needed. Call cord in reach. No other needs at this time.
--- NOTE | 2017-06-08 12:07 | NUR ---
SPOKE WITH JAYLAN, PATIENT'S RN, ABOUT PATIENT'S CURRENT CONDITION. JAYLAN SUGGESTED I TALK TO THE PATIENT SHE WOULD APPRECIATE ANY GUIDANCE ON NUTRITION. PATIENT HAS CARCINOMA IN THE ABDOMEN. HER PAIN IS INCREASING. SHE HAS A PEG TUBE FOR VENTILATION WHICH HAS HELPED RELIEVE SOME NAUSEA. SHE CAN EAT/DRINK SOME, BUT IT BASICALLY GOES RIGHT THROUGH HER AND OUT THE PEG BAG. SHE MENTIONED THE CANCER HAS SPREAD VERY QUICKLY THE PAST 3 MONTHS AND UNDERSTANDS THERE ISN'T MUCH THAT SURGERY CAN DO. SHE MENTIONED TPN AT HOME FOR NUTRITION AND HYDRATION. SHE WOULD LIKE TO LIVE. I EXPLAINED THAT TYPICALLY A HOME INFUSION COMPANY WOULD HANDLE THE ASSESSMENT, RECOMMENDATIONS, AND FORMULATION OF THE TPN. THEY WOULD DELIVER IT AND TEND TO IT. THIS PROCESS WILL LIKELY BE STARTED BY HER PCP. SOUNDS LIKE TPN AT HOME IS MOST APPROPRIATE AT THIS TIME, UNLESS A J-TUBE IS POSSIBLE BUT THEN SHE WOULD NEED CONTINUOUS FEEDS. SHE APPRECIATED ME STOPPING BY AND EXPLAINING THIS TO HER. I WILL REMAIN AVAILABLE IF NEEDED, EVEN TO TALK TO DR. DUBON.
--- NOTE | 2017-06-08 12:20 | NUR ---
PATIENT OUT OF THE SHOWER, HELPED PATIENT TO DRESS. DC INSTRUCTION WAS GIVEN TO PATIENT, PHARMACIST FELICIANO IN ROOM FRO MEDICATION EDUCATION. ALL QUESTIONS ANSWERED. CHILD CUSTODY EVALUATOR TOOK PATIENT OUT TO CANCER CLINIC FOR SCHEDULE APPOINTMENT.
--- NOTE | 2017-06-08 13:15 | NUR ---
PT SITTING IN CHAIR, ALERT, ORIENTED AND SUPPORTED BY HER FRIEND ELENA. PT'S OVERALL COUNTENANCE SEEMED TO PERK UP WHEN ELENA ARRIVED. WAITING FOR DR DUBON TO WRITE DC ORDERS. PT THEN HEADED TO CANCER CLINIC TO HAVE DISCUSSION WITH DR Sellers. GOOD VISIT, PT REQUESTED PRAYER. WILL FOLLOW NEEDED
[2017-06-17] MEDS ORDERED: MORPHINE IV (09:03)
[2017-06-17] MEDS ORDERED: DEXAMETHASONE4 MG PO (09:04)
[2017-07-01] MEDS ORDERED: DILAUDID 22 MG/1 M1 (10:21)
[2017-07-01] MEDS ORDERED: FENTANYL1 EAC3 TD (10:23)
[2017-07-22] MEDS ORDERED: DILAUDID2 MG PO (09:47)
== END 2017-06-08 12:37 | disposition home or self-care (01) | DRG 389 ==
LOC: ED 21:22 → MS 21:24
PROVIDERS: ADMIT Surgery
DX: K56.609 Unspecified intestinal obstruction, unspecified as to partial versus complete obstruction (principal); C23 Malignant neoplasm of gallbladder; C79.9 Secondary malignant neoplasm of unspecified site; E86.0 Dehydration; Z93.1 Gastrostomy status; Z79.891 Long term (current) use of opiate analgesic; Z79.899 Other long term (current) drug therapy; Z88.2 Allergy status to sulfonamides
CPT/HCPCS: 36415; 74022; 74176; 80053; 81001; 83690; 83735; 85025; 94762; 96374; 96375; 96376; 99285; G0378; J1170; J2270; J2405; J7030; J7120

== ENCOUNTER 2017-10-10 08:22 | Day surgery (SDC) | payer BC, OTHER ==
[~2017-10-10] VITALS: Ht 160 cm; Wt 60.3 kg
[~2017-10-10 08:22] MED LIST changes: +DILAUDID 22 MG/1 M1; +DILAUDID1 MG/ML PO; +FENTANYL1 EAC3 TD; +HYDROMORPHONE HC2 MG PO; +MORPHINE IV; +OXYCODONE HCL5 MG PO
--- NOTE | 2017-10-10 09:38 | NUR ---
PT REQUESTING SECOND HALF OF VERSED. EMAR WOULD NOT LET ME SCAN IT BECAUSE OF THE WAY IT WAS WRITTEN.
--- NOTE | 2017-10-10 11:28 | NUR ---
10/10/17 1128 Yasmine Batres 1103- PT ARRIVES TO PACU RESPONSIVE TO VERBAL STIMULI. DOES NOT FOLLOW COMMANDS. PT'S BP HAS BEEN RUNNING LOW. BP PRE-OP 90 SYSTOLICALLY. 1107- PT TALKING WITH STAFF AND REQUESTING ICE CHIPS. PT SAT UP AND GIVEN ICE CHIPS. REPORTS NO DIZZINESS, NAUSEA, OR PAIN. 1115- DR. FELIZ AT THE BEDSIDE TO TALK WITH PT.
[2017-10-10] MEDS ORDERED: DILAUDID4 MG PO (11:32)
[2017-10-10] MEDS ORDERED: AUGMENTIN 875-1 EACH PO (11:32)
--- NOTE | 2017-10-10 14:02 | NUR ---
PT ALERT, ORIENTED AND SUPPORTED BY HER FERNANDO. PT EXPRESSED CONCERN REGARDING EXACT PLACEMENT OF STENT, AND LESS PAIN WOULD BE NICE. PT REQUESTED PRAYER, WILL FOLLOW NEEDED
--- NOTE | 2017-10-10 14:11 | OR ---
[facility] [address] [place], [place] [address] Signed DATE OF OPERATION: 10/10/2017 SURGEON: Chang Feliz MD PREOPERATIVE DIAGNOSIS: Left hydronephrosis due to distal obstruction, likely secondary to metastatic cholangiocarcinoma. POSTOPERATIVE DIAGNOSIS: Left hydronephrosis due to distal obstruction, likely secondary to metastatic cholangiocarcinoma. NAMES OF PROCEDURES: Diagnostic cystoscopy with left ureteral stent exchange. ANESTHESIA: MAC. ESTIMATED BLOOD LOSS: Minimal. COMPLICATIONS: None. SPECIMENS: None. DRAINS: A 7 x 24 cm contour double-J ureteral stent inserted into the left ureter. INDICATIONS FOR PROCEDURE: Ms. Corbin is a very pleasant 56-year-old female, who is actively battling metastatic cholangiocarcinoma. Earlier this year, she developed asymptomatic left hydronephrosis as well as acute renal insufficiency that was noted to be due to acute obstruction at the level of the distal ureter. A CT scan confirmed presence of hydronephrosis on the left side. She has undergone two ureteral stent exchanges prior to today and her renal function remains stable with a creatinine in the 1.15 range. She presents today to undergo repeat cystoscopy with left ureteral stent exchange. OPERATIVE FINDINGS: Electronically Signed By: CHANG FELIZ MD 10/10/17 1411 PATIENT NAME: MARIA ELENA CORBIN OPERATIVE REPORT DATE OF : 62 REPORT #: [id number] PHYSICIAN: CHANG FELIZ MD PCP: ASHLEY BAY MD REPORT IS CONFIDENTIAL AND NOT TO BE RELEASED WITHOUT AUTHORIZATION [facility] [address] [place], [place] [address] Signed 1. Cystoscopy reveals no evidence of any suspicious masses, lesions, or stones. She has an indwelling left ureteral stent with minimal to no sediment noted on the stent. 2. The indwelling left ureteral stent was removed fully intact. This I upgraded the stent and placed a seven eight correction eight stent with a slightly larger diameter, namely a 7 x 24 cm ureteral stent into the left ureter. The procedure was performed without difficulty. DESCRIPTION OF PROCEDURE: After informed consent was obtained, the patient was taken back to the operating room. She was [facility] to the operative room table, where MAC anesthesia was induced. She was placed in the dorsal lithotomy position and her genitalia were prepped and draped in standard sterile fashion. Using a 30-degree lens on a 22.5-Djiboutian introducer, rigid cystoscope was inserted through the urethra into her bladder under direct visualization. Panendoscopic views of the bladder were then obtained. Please see above findings. The indwelling ureteral stent was removed to the level of the urethral meatus. A 0.035 Sensor wire was inserted into the lumen of the stent up into the left collecting system under fluoroscopic guidance. The indwelling left ureteral stent was then removed fully intact. Please see above findings. With the Sensor wire in place, a fresh 7 x 24 cm contour double-J ureteral stent was inserted into the patient's left ureter under direct visualization without difficulty. Once the wire was pulled and adequate proximal coil was seen within the left renal pelvis along with an adequate distal coil within the bladder. The patient's bladder was then drained and the cystoscope was removed. The procedure was then terminated. The patient tolerated the procedure well without any complication. She will now be transferred to the postanesthesia care unit in stable condition. DISPOSITION: I discussed the results of today's procedure with both the patient and her and answered all their questions. She is not interested in taking any oral antibiotics at home for fear of severe nausea and vomiting. She already has Dilaudid 4 mg p.o. q.6 hours p.r.n. pain to be used as needed for stent related discomfort. I explained to the Alexsandra today that if the external pressure upon the left ureter continues, at some point, the stents will no longer help force drainage of the left kidney and she would require either to undergo insertion of a metal stent or be considered for percutaneous nephrostomy tube drainage. They verbalized understanding of this today. She will be scheduled to return to clinic in two months for a routine urine check and re-evaluation. Chang Feliz MD Electronically Signed By: CHANG FELIZ MD 10/10/17 1411 PATIENT NAME: MARIA ELENA CORBIN OPERATIVE REPORT DATE OF : 62 REPORT #: [id number] PHYSICIAN: CHANG FELIZ MD PCP: ASHLEY BAY MD REPORT IS CONFIDENTIAL AND NOT TO BE RELEASED WITHOUT AUTHORIZATION [address] [place], [place] [address] Signed POONAM/JE Jenkins #: [id number] Copies: ~ Electronically Signed By: CHANG FELIZ MD 10/10/17 1411 PATIENT NAME: MARIA ELENA CORBIN OPERATIVE REPORT DATE OF : 62 REPORT #: [id number] PHYSICIAN: CHANG FELIZ MD PCP: ASHLEY BAY MD REPORT IS CONFIDENTIAL AND NOT TO BE RELEASED WITHOUT AUTHORIZATION
== END 2017-10-10 12:20 | disposition home or self-care (01) ==
LOC: DS 08:22
PROVIDERS: Urology
PROC: 0T778DZ Dilation of Left Ureter with Intraluminal Device, Via Natural or Artificial Opening Endoscopic (ICD-10-PCS; principal; 2017-10-10 09:30)
PROC: 0TP98DZ Removal of Intraluminal Device from Ureter, Via Natural or Artificial Opening Endoscopic (ICD-10-PCS; 2017-10-10 09:30)
DX: Z46.6 Encounter for fitting and adjustment of urinary device (principal); N13.1 Hydronephrosis with ureteral stricture, not elsewhere classified; M19.90 Unspecified osteoarthritis, unspecified site; Z79.899 Other long term (current) drug therapy; Z87.891 Personal history of nicotine dependence; Z88.2 Allergy status to sulfonamides
CPT/HCPCS: 00910; 74018; C2617; J0696; J1885; J2250; J2405; J2704; J7120

== ENCOUNTER → 2017-11-07 | Emergency (ER) | payer BC, OTHER ==
[~2017-11-07] VITALS: Ht 160 cm; Wt 62.1 kg
[~2017-11-07] MED LIST changes: +DILAUDID4 MG PO
--- OUTSIDE RECORDS SUMMARY | ~2017-11-07 | XMS | Clinical Summary ---
Demographics + + + | Address | [address] | | | [place] [address] | + + + | Home Phone | | + + + | Preferred Language | Unknown | + + + | Marital Status | Single | + + + | Christian Affiliation | Unknown | + + + | Race | Unknown | + + + | Ethnic Group | Unknown | + + + Author + + + | Author | [facility] | | | and Eduardoana | + + + | Organization | [facility] | | | and Eduardoana | + + + | Address | Unknown | + + + | Phone | Unavailable | + + + Support + + + + + | Name | Relationship | Address | Phone | + + + + + | Poncho Oquendo | ECON | [address] | | | | | [place] | | | | | [address] | | + + + + + | Marta Corbin | ECON | [place] | | | | | [address] | | + + + + + Care Team Providers + +------+ + | Care Sales Account Executive Name | Role | Phone | + [...] | | written pain management agreement/narcotic contract. [[facility] | | Health and Services Provider Handbook [...] Garcia on | | 03/29/2012. Pathological specimen [id number] was analyzed by | | Liu Bowers M.D. of [facility] and was notable | | for a poorly-differentiated adenocarcinoma of the gallbladder. | | Liver biopsy was performed at the same time of the procedure and | | demonstrated portal inflammation.2. On 04/26/2012, she | | successfully underwent a R0 resection by Dr. Tai Stanton, of | | the [facility]. Pathological specimen | | [id number] was notable for the absence of any residual | | carcinoma within the gallbladder bed; however, 2/8 regional lymph | | nodes were positive for regionally metastatic disease.3. | | Consultation with Dr. Elva Grey of the [facility] | | [facility] [place] on 05/17/2012, which returned the | | [...] Dr. Miguel Henderson of the | | [facility]. Pathological analysis from | | this surgery specimen # [id number] was notable for a 9.5 cm mass | | replacing the left tube and ovary and extensively involving the | | ovarian stroma with focal involvement of the fallopian tubes. 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 However, 122 of the remaining genes | | analyzed in the assay were all wild type.7. Repeat consultation | | with Dr. Elva Grey of the [facility] | | on 06/26/2014 returned the recommendation for additional | | chemotherapy with cisplatin at 75 mg/m2 on day 1 with gemcitabine | | at 1250 mg/m2 on day-1 and day-8 of the every 21-day cycle for | | 6-8 cycles. This was followed by a second opinion by Dr. Quirzo | | Jeovany of the [facility] who recommended | | chemotherapy with cisplatin [...] recommendations of Dr. Richie Thayer of the [facility] | | [place] with gemcitabine at 1000 mg/m2 on day-1 and day-8 with | | cisplatin 25 mg/m2 on day-1 and day-8 of the every 21-day cycle, | | beginning on 07/26/2014. Chemotherapy was complicated by grade 3 | | neutropenia without fever a grade 3 thrombocytopenia without | | bleeding.10. Repeat CT scan of the abdomen and pelvis on | | 09/16/[address] [facility] in [place], | | [place], demonstrated stable postoperative changes involving | | [...] the chest, abdomen, and pelvis at the [facility] in [place], [place], | | demonstrated stable postoperative changes [...] abdomen, and | | pelvis at the [facility] in [place], [place], on | | 06/23/2015 demonstrating postoperative changes in the right upper | | quadrant. No evidence of recurrence or any evidence of | | metastatic disease.15. Repeat CT scan of the chest, abdomen, and | | pelvis at the [facility] in [place], [place], on | | 09/24/2015 demonstrating right upper quadrant post-surgical | | changes. No evidence of recurrent neoplasm. Interval development | | of a small hernia containing bowel and fat 3 cm above the | | umbilicus.16. Repeat CT scan of the abdomen and pelvis on | | 12/22/2015 at the [facility] in [place], [place], | | demonstrating a 1.5 cm soft tissue nodule just inferior to the | | liver within the mesentery on the right. In addition, there were | | tiny nodules in the bilateral upper quadrants.17. PET CT scan at | | [facility] in [place], [place], on 12/31/2015 | | demonstrating benign findings. The nodularity along the omental | | fat along the left colon and liver tail showed no abnormal | | uptake.18. Presentation to the [facility] Emergency | | Room on 03/15/2016 [...] | Repeat CT scan of C/A/P at [facility] on July 01, 2016 | | [...] | | contrast, October 06, 2016, at [facility] in [place], | | [place], demonstrated no evidence of recurrence or metastatic | | disease. Aura continued on observation without treatment.23. | | Repeat CT scan of the chest/abdomen/pelvis at [facility] demonstrated progression of disease and | | new left hydronephrosis. Status post left internal ureteral stent | | placement by Dr. Maldonado, January 31, 2017.24. Cross over to | | pembrolizumab February 25, 2017 x 4 cycles through April 06, | | 2018.25. CT abdomen/pelvis on April 26, 2017 demonstrated [...] will see Dr. Richie Thayer at the [facility] | | [facility] [place]. | + + + + + | [...] + + | 11/07/ | Telephone | | Reinaldo | Eli | | 2017 | | | Epifanio Soler MD | | +--------+ + + + + | 10/10/ | Telephone | | Roopa Najera Lab Results | | 2017 | | | Epifanio Soler MD | | +--------+ + + + + | 09/12/ | Telephone | | Reinaldo, | Other | | 2017 | | [...] | Body Mass Index | 26.71 | 05/20/2017 0914 PDT | + + + + Plan [...] + + | Colorectal Cancer | | | | | Screening | 2 | | | | (Colonoscopy) | | | | + + + + + | Cervical Cancer | | 05/05/2010 | | | Screening (Pap) | 6 | | | + + + + + | BREAST CANCER | | 08/11/2015, 2012, | | | SCREENING (MAMM Q2 | 8 | 07/01/2011, Additional history | | | YEARS 50-74) | | exists | | + + + + + | Vaccine: Influenza | | | | | (#1) | 8 | | | + + + + + | Vaccine: | | 02/04/2011 | | | Dtap/Tdap/Td (2 - | 1 | | | | Td) | | | | + + + + + | Hepatitis C | Completed | 09/16/2014 | | | Screening | | | | + + + + + Procedures + +--------+ + + + | Procedure Name | Priori | Date/Time | Associated Diagnosis | Comments | | | ty | | | | + +--------+ + + + | LABS - EXTERNAL SCAN | | 10/13/2017 | | Results for this | | | | 0000 PDT | | procedure are in the | | | | | | results section. | + +--------+ + + + from Last 3 Months Results LABS - EXTERNAL SCAN (10/13/2017) + + + | Narrative | Performed At | + + + | Ordered by an | | | unspecified provider. | | + + + from Last 3 Months Insurance + +--------+ +--------+-------+---------+ | Payer | Benefi | Subscriber | Type | Phone | Address | | | t Plan | ID | | | | | | / | | | | | | | Group | | | | | + +--------+ +--------+-------+---------+ | BCBS | BCBS | [id number] | PPO | | | | | [place] | | | | | | | L FEP | | | | | + +--------+ +--------+-------+---------+ | [facility] | IHS | [id number] | Indemn | | | | SERVICE [...] | Self | [birth year] | Work: | [id number] | | | al/Jaspreet | | 1960 | [phone] | [place] [address] | | | jose alejandro | | | [phone]: | | | | | | | | | | | | | | [phone] | | | | | | | [phone] | | + +--------+ +--------+ + +
--- OUTSIDE RECORDS SUMMARY | ~2017-11-07 | XMS | Encounter Summary ---
Demographics + + + | Address | [address] | | | [place] [address] | + + + | Home Phone [...] | Author | [facility] | | | and Eduardo[place] | + + + | Organization | [facility] | | | and Eduardoana | + + + | Address | Unknown | + + + | Phone | Unavailable | + + + Support + + + + + | Name | Relationship | Address | Phone | + + + + + | Poncho Oquendo | ECON | [address] | | | | | [place] | | | | | [address] | | + + + + + | Marta Upton | ECON | [place] | | | | | [address] | | + + + + + Care Team Providers + +------+ + | Care Tire Inspector Name | Role | Phone | [...] + | 10/10/ | Telephone | [facility]OMAIR[facility] | Reinaldo, | Lab Results | | 2018 | | [facility] | Epifanio Soler MD [address] | | | | | [address] | [facility] | | | | | [address] | [place] [address] | | | | | [place] [address] | [phone] | | | | | [phone] | | | +--------+ + + + [...]
--- OUTSIDE RECORDS SUMMARY | ~2017-11-07 | XMS | Encounter Summary ---
Demographics + + + | Address | [address] | | | [place] [address] | + + + | Home Phone [...] Author | [facility] | | | and Eduardo[place] | + + + | Organization | [facility] | | | and Eduardoana | + + + | Address | Unknown | + + + | Phone | Unavailable | + + + Support + + + + + | Name | Relationship | Address | Phone | + + + + + | Poncho Oquendo | ECON | [address] | | | | | [place] | | | | | [address] | | + + + + + | Marta Upton | ECON | [place] | | | | | [address] | | + + + + + Care Team Providers + +------+ + | Care Photovoltaic Technician Name | Role | Phone | [...] HOSPITAL | | | | | [facility] | [place] [address] | | | | | [place] [address] | [phone] | | | | | [phone] | | | +--------+ + + + [...]
--- OUTSIDE RECORDS SUMMARY | ~2017-11-07 | XMS | Clinical Summary ---
Demographics + + + | Address | [address] | | | [place] [address] | + + + | Home Phone [...] | + + +---------+ + | Marta Corbin | ECON | Unknown | | | "Pat" | | | | + + +---------+ + Care Team Providers + +------+ + | Care Width Stripper Name | Role | Phone | + +------+ + | Valeriy Carmona MD | PP | Unavailable | + +------+ + Source Comments GWEN is fully live on both EpicCare Ambulatory and EpicCare InPatient.[facility] Allergies + + + + + [...] + + | INFLUENZA VACCINE | | | | | (FLU SHOT) | 8 | | | + + + + + Results Not on filefrom Last 3 Months Insurance + +--------+ +--------+ + + | Payer | Benefi | Subscriber | Type | Phone | Address | | | t Plan | ID | | | | | | / | | | | | | | Group | | | | | + +--------+ +--------+ + + | [employer] [place] | BLUE | [phone] | PPO | [phone] | [address] [address] [place] | | | CROSS | | | [address] | [place] [address] | | | [place] | | | | | | | L | | | | | + +--------+ +--------+ + + | [facility] | [place] | [phone] | Agency | | | | SERVICE | | | | | | | | HEALTH | | | | | | | | | | | | | | SERVIC | | | | | | | E | | | | | + +--------+ +--------+ + + + +--------+ +--------+ + + | Guarantor Name | Accoun | Relation to | Date | Phone | Billing Address | | | t Type | Patient | of | | | | | | | | | | + +--------+ +--------+ + + | AURA CORBIN | Person | Self | [birth year] | Home: | [id number] | | | al/Fam | | 1960 | [phone] | [place] | | | jose alejandro | | | [phone] | [phone] | + +--------+ +--------+ + + | AURA CORBIN | Agency | Self | [birth year] | Home: | [address] | | | | | 1961 | [phone] | [place] | | | | | | [phone] | [phone] | + +--------+ +--------+ + +
--- OUTSIDE RECORDS SUMMARY | ~2017-11-07 | XMS | Encounter Summary ---
Demographics + + + | Address | [address] | | | [place] [address] | + + + | Home Phone | | + + + | Preferred Language | Unknown | + + + | Marital Status | Single | + + + | Jainism Affiliation | Unknown | + + + | Race | Unknown | + + + | Ethnic Group | Unknown | + + + Author + + + | Author | [facility] | | | and Eduardoana | + + + | Organization | [facility] | | | and Eduardo[place] | + + + | Address | Unknown | + + + | Phone | Unavailable | + + + Support + + + + + | Name | Relationship | Address | Phone | + + + + + | Poncho Oquendo | ECON | [address] | | | | | [place] | | | | | [address] | | + + + + + | Marta Upton | ECON | [place] | | | | | [address] | | + + + + + Care Team Providers + +------+ + | Care Oil Inspector Name | Role | Phone | [...] | | [address] | [facility] | | | | | [address] | [place] [address] | | | | | [place] [address] | [phone] | | | | | [phone] | | | +--------+ + + + [...]
--- OUTSIDE RECORDS SUMMARY | ~2017-11-07 | XMS | Encounter Summary ---
Demographics + + + | Address | [address] | | | [place] [address] | + + + | Home Phone [...] Author | [facility] | | | and [place]ardo[place] | + + + | Organization | [facility] | | | and Eduardo[place] | + + + | Address | Unknown | + + + | Phone | Unavailable | + + + Support + + + + + | Name | Relationship | Address | Phone | + + + + + | Poncho Oquendo | ECON | [address] | | | | | [place] | | | | | [address] | | + + + + + | Marta Upton | ECON | [place] | | | | | [address] | | + + + + + Care Team Providers + +------+ + | Care Water Hauler Name | Role | Phone | + [...] Results | | 2018 | | MED [facility] | Epifanio Soler MD [address] | | | | | [address] | [facility] | | | | | [address] | [place] [address] | | | | | [place] [address] | [phone] | | | | | [phone] | | | +--------+ + + + [...]
--- OUTSIDE RECORDS SUMMARY | ~2017-11-07 | XMS | Clinical Summary ---
Demographics + + + | Address | [address] | | | [place] [address] | + + + | Home Phone [...] | Author | [facility] | | | and Eduardo[place] | + + + | Organization | [facility] | | | and Eduardoana | + + + | Address | Unknown | + + + | Phone | Unavailable | + + + Support + + + + + | Name | Relationship | Address | Phone | + + + + + | Poncho Oquendo | ECON | [address] | | | | | [place] | | | | | [address] | | + + + + + | Marta Corbin | ECON | [place] | | | | | [address] | | + + + + + Care Team Providers + +------+ + | Care Hot Molder Name | Role | Phone | [...] | | written pain management agreement/narcotic contract. [[facility] | | Health and Services Provider Handbook [...] Garcia on | | 03/29/2012. Pathological specimen [id number] was analyzed by | | Liu Bowers M.D. of [facility] and was notable | | for a poorly-differentiated adenocarcinoma of the gallbladder. | | Liver biopsy was performed at the same time of the procedure and | | demonstrated portal inflammation.2. On 04/26/2012, she | | successfully underwent a R0 resection by Dr. Tai Stanton, of | | the [facility]. Pathological specimen | | [id number] was notable for the absence of any residual | | carcinoma within the gallbladder bed; however, 2/8 regional lymph | | nodes were positive for regionally metastatic disease.3. | | Consultation with Dr. Elva Grey of the [facility] | | [facility] on 05/17/2012, which returned the | | [...] Dr. Miguel Henderson of the | | [facility]. 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 However, 122 of the remaining genes | | analyzed in the assay were all wild type.7. Repeat consultation | | with Dr. Elva Grey of the [facility] | | on 06/26/2014 returned the recommendation for additional | | chemotherapy with cisplatin at 75 mg/m2 on day 1 with gemcitabine | | at 1250 mg/m2 on day-1 and day-8 of the every 21-day cycle for | | 6-8 cycles. This was followed by a second opinion by Dr. Quiroz | | Jeovany of the [facility] who recommended | | chemotherapy with cisplatin [...] recommendations of Dr. Richie Thayer of the [facility] | | [place] with gemcitabine at 1000 mg/m2 on day-1 and day-8 with | | cisplatin 25 mg/m2 on day-1 and day-8 of the every 21-day cycle, | | beginning on 07/26/2014. Chemotherapy was complicated by grade 3 | | neutropenia without fever a grade 3 thrombocytopenia without | | bleeding.10. Repeat CT scan of the abdomen and pelvis on | | 09/16/2014 at the [facility] in [place], | | [place], demonstrated stable postoperative [...] chest, abdomen, and pelvis at the [facility] in [place], [place], | | demonstrated stable postoperative changes [...] abdomen, and | | pelvis at the [facility] in [place], [place], on | | 06/23/2015 demonstrating postoperative changes in the right upper | | quadrant. No evidence of recurrence or any evidence of | | metastatic disease.15. Repeat CT scan of the chest, abdomen, and | | pelvis at the [facility] in [place], [place], on | | 09/24/2015 demonstrating right upper quadrant post-surgical | | changes. No evidence of recurrent neoplasm. Interval development | | of a small hernia containing bowel and fat 3 cm above the | | umbilicus.16. Repeat CT scan of the abdomen and pelvis on | | 12/22/2015 at the [facility] in [place], [place], | | demonstrating a 1.5 cm soft tissue nodule just inferior to the | | liver within the mesentery on the right. In addition, there were | | tiny nodules in the bilateral upper quadrants.17. PET CT scan at | | [facility] in [place], [place], on 12/31/2015 | | demonstrating benign findings. The nodularity along the omental | | fat along the left colon and liver tail showed no abnormal | | uptake.18. Presentation to the [facility] Emergency | | Room on [...] | Repeat CT scan of C/A/P at [facility] on July 01, 2016 | [...] | | contrast, October 06, 2016, at [facility] in [place], | | [place], demonstrated no evidence of recurrence or metastatic | | disease. Aura continued on observation without treatment.23. | | Repeat CT scan of the chest/abdomen/pelvis at [facility] demonstrated progression of disease and | [...] will see Dr. Richie Thayer at the [facility]. | + + + + + | [...] +--------+ +--------+-------+---------+ | BCBS | BCBS | [id number] | PPO | | | | | [place] | | | | | | | L FEP | | | | | + +--------+ +--------+-------+---------+ | [facility] | IHS | [id number] | Indemn | | | | SERVICE [...] | Self | [birth year] | Work: | [address] | | | al/Jaspreet | | 1960 | [phone] | [place] [address] | | | jose alejandro | | | [phone]: | | | | | | | | | | | | | | [phone] | | | | | | | [phone] | | + +--------+ +--------+ + +
--- OUTSIDE RECORDS SUMMARY | ~2017-11-07 | XMS | Clinical Summary ---
Demographics + + + | Address | [address] | | | [place] [address] | + + + | Home Phone [...] Providers + +------+ + | Care Automotive Sales Professional Name | Role | Phone | + +------+ + | Valeriy Carmona MD | PP | Unavailable | + +------+ + Source Comments GWEN is fully live on both EpicCare Ambulatory and EpicCare InPatient.[facility] Allergies + + + + [...] | PPO | [phone] | [address] [address] [place] | | | CROSS | | | [address] | [place] [address] | | | [place] | | | | | | | L | | | | | + +--------+ +--------+ + + | [facility] | [place] [employer] | [phone] | Agency | | | [...] | Self | [birth year] | Home: | [address] | | | al/Fam | | 1960 | [phone] | [place] | | | jose alejandro | | | [phone] | [address] | + +--------+ +--------+ + + | AURA CORBIN | Agency | Self | [birth year] | Home: | [address] | | | | | 1961 | [phone] | [place] | | | | | | [phone] | [address] | + +--------+ +--------+ + +
--- OUTSIDE RECORDS SUMMARY | ~2017-11-07 | XMS | Encounter Summary ---
Demographics + + + | Address | [address] | | | [place] [address] | + + + | Home Phone [...] + | Author | [facility] | | | and Eduardoana | + + + | Organization | [facility] | | | and Eduardo[place] | + + + | Address | Unknown | + + + | Phone | Unavailable | + + + Support + + + + + | Name | Relationship | Address | Phone | + + + + + | Poncho Oquendo | ECON | [address] | | | | | [place] | | | | | [address] | | + + + + + | Marta Upton | ECON | [place] | | | | | [address] | | + + + + + Care Team Providers + +------+ + | Care Insect Control Aide Name | Role | Phone [...] [address] | [facility] | | | | | [address] | [place] [address] | | | | | [place] [address] | [phone] | | | | | [phone] | | | +--------+ + + + [...]
--- OUTSIDE RECORDS SUMMARY | ~2017-11-07 | XMS | Encounter Summary ---
Demographics + + + | Address | [address] | | | [place] [address] | + + + | Home Phone [...] Author | [facility] | | | and Eduardo[place] | + + + | Organization | [facility] | | | and Eduardo[place] | + + + | Address | Unknown | + + + | Phone | Unavailable | + + + Support + + + + + | Name | Relationship | Address | Phone | + + + + + | Poncho Oquendo | ECON | [address] | | | | | [place] | | | | | [address] | | + + + + + | Marta Upton | ECON | [place] | | | | | [address] | | + + + + + Care Team Providers + +------+ + | Care Compressor Station Operator Name | Role | Phone | [...] | | [address] | [facility] | | | | | [address] [facility] | [place] [address] | | | | | [place] [address] | [phone] | | | | | [phone] | | | +--------+ + + + [...]
--- NOTE | 2017-11-07 21:01 | EKG ---
[facility] [address] [place] [address] Signed Sinus tachycardia with fusion complexes Otherwise normal ECG When compared with ECG of 31-JAN-2017 09:28, fusion complexes are now present Vent. rate has increased BY 50 BPM Confirmed by RADHA COWART MD ([id number]) on 11/07/2017 9:00:54 PM Electronically Signed By: RADHA COWART MD 11/07/172100 PATIENT NAME: MARIA ELENA CORBIN Electrocardiogram DATE OF : 62 PHYSICIAN: RADHA COWART MD REPORT #: [id number] REPORT IS CONFIDENTIAL AND NOT TO BE RELEASED WITHOUT AUTHORIZATION
== END ==
LOC: ED 11:43
PROC: 0T9B70Z Drainage of Bladder with Drainage Device, Via Natural or Artificial Opening (ICD-10-PCS; principal; 2017-11-07)
DX: A41.9 Sepsis, unspecified organism (principal); R65.21 Severe sepsis with septic shock; N39.0 Urinary tract infection, site not specified; C22.1 Intrahepatic bile duct carcinoma; D69.6 Thrombocytopenia, unspecified; Z88.2 Allergy status to sulfonamides; Z79.899 Other long term (current) drug therapy
CPT/HCPCS: 36430; 51702; 71045; 74176; 80053; 81001; 83605; 83690; 85025; 86850; 86900; 86901; 87040; 87077; 87088; 87186; 93005; 93010; 96365; 96366; 96367; 96368; 96375; 99285; J0131; J2370; J2543; J3370; J7030; J7042; P9035

== ENCOUNTER 2019-05-09 16:28 | Inpatient (IN) | payer BC, OTHER ==
[~2019-05-09] VITALS: Ht 160 cm; Wt 68.0 kg
--- NOTE | ~2019-05-09 | DS ---
[facility] [address] [place] [address] Draft ADMISSION DATE: 05/09/2019 DISCHARGE DATE: 05/17/2019 REASON FOR ADMISSION: This 58-year-old [place] woman, who has had intermittent abdominal pain since April 24. She has a long and complex past medical history beginning with gallbladder carcinoma excised by Dr. Garcia and subsequent right hepatic lobectomy and subsequent chemotherapy and radiation therapy under the direction of Dr. Riggins. Approximately 2 years ago, she had a small bowel obstruction which was considered likely intractable and incurable related to carcinomatosis. She underwent a palliative PEG tube decompression approach. She had additional TPN, additional chemotherapy and ultimately became far more functional. Indeed, her G-tube was ultimately removed by me in the past few months as she was not using it and was eating well. She presented to the emergency room having undergone left renal stenting on April 26, but with significant abdominal pain which was unrelenting. The patient is on chronic opioids of Dilaudid and oxycodone from time to time, increasing in her doses more recently. She was evaluated in the emergency room and found to have bowel obstruction based on CT scan findings and was admitted to the service of Dr. Hassan for further evaluation and care. PERTINENT PHYSICAL EXAMINATION: GENERAL: Showed a well-developed, well-nourished, non-cachectic [place] woman in no physical distress. EYES: She had no icterus. HEART: Regular. CHEST: Clear. ABDOMEN: Showed no significant tenderness. There is no abdominal distention. LABORATORY STUDIES: Showed normal electrolytes, though creatinine was elevated to 1.21. Liver enzymes were normal. The coag studies showed a protime of 13.5 with an INR of 1.0. White count was elevated at 14.6, hematocrit 42.1, platelets 152,000. Urinalysis essentially normal. HOSPITAL COURSE: She was admitted by Dr. Hassan for supportive care with pain medication, IV fluids and so forth. She had refused nasogastric tube placement. She was mistakenly thought to have been tested for COVID virus during this pandemic, but in fact had not been tested for that and showed no indications that she should be tested based on the current protocol. Consultation was undertaken by me at her request. Evaluation confirmed probability of PATIENT NAME: MARIA ELENA CORBIN DISCHARGE SUMMARY DATE OF : 62 REPORT #: [id number] PHYSICIAN: KETURAH SAVAGE MD PCP: [facility] REPORT IS CONFIDENTIAL AND NOT TO BE RELEASED WITHOUT AUTHORIZATION [facility] [address], [place] [address] Draft small bowel obstruction based on CT scan findings. The patient additionally refused nasogastric tube decompression despite all this. I saw her initially on 05/11/2019. She was considered to have incomplete small bowel obstruction and acknowledging a long-standing chronic incomplete bowel obstruction. It was noted she has not been on a chemotherapy regimen for quite some time. She was monitored and although somewhat improved, had no progress regarding small bowel obstruction based on serial abdominal x-rays and examination. Despite all, she had persistent nausea and some vomiting. She ultimately agreed to placement of a nasogastric tube by me, which she tolerated well and decompressed her stomach quite nicely. Subsequent evaluation showed no improvement really in the bowel obstruction itself. Although, she was considered unlikely to have a total bowel obstruction. She had incomplete bowel obstruction and inability to be discharged to home on that basis. Operation was offered to relieve the bowel obstruction by whatever means; this could include enteric bypass, simple lysis of adhesions or tumor debulking depending on findings. Of note, a PET scan in the past few months showed no "hot spots." On May 14, 2019, she underwent laparotomy. 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 Segmental resection of about 18 inches of small bowel and subsequently portion of cecum with end-to-side ileocolic anastomosis. Biopsy of the peritoneal nodule was undertaken as well as there were several carcinomatosis type lesions scattered throughout the remainder of the peritoneal cavity, which formed nidus of angulation deformity of the bowel. Additionally, a G-tube was placed for postoperative decompression. She had a PEG tube in the past, it is recalled. Her postoperative course was rather unremarkable. She had prompt resumption of bowel function. She was soon thereafter eating a regular diet and the drain that was placed in the pelvis had been removed. The G-tube remains in place for the time being and will likely be removed in the next few weeks. It is still available for enteral nutrition should that be needed. As regards discharge instructions she is to lift no more than 20 pounds for the next 4 weeks. She should walk on a daily basis. She will flush the G-tube daily with at least 50 mL of tap water. She does likely have some opioid tolerance and dependency on the basis of persistent use of Cisco and episodic use of Dilaudid. She has weaned herself in the past from fentanyl patches. She will endeavor to do the same with the hydrocodone as her abdominal pain likely will be resolved with this operation at least for the time being. DISCHARGE MEDICATIONS: 1. Will include Cisco 7.5/325 1/2 tab p.o. q.4 hours as needed for pain #30. Additional PATIENT NAME: JENELLEMARIA ELENA HANSON DISCHARGE SUMMARY DATE OF : 62 REPORT #: [id number] PHYSICIAN: KETURAH SAVAGE MD PCP: [facility] REPORT IS CONFIDENTIAL AND NOT TO BE RELEASED WITHOUT AUTHORIZATION [facility] [address] [place], [place] [address] Riggins, who has provided her opiate management in the past. 2. Continue use of estradiol 10 mcg twice a week. 3. Dilaudid 1 mg/mL liquid, 1 mg orally as needed for pain to wean. 4. MiraLAX 1 powder pack 17 g orally as needed for constipation. 5. Tums tablet one p.o. daily. 6. Lorazepam Ativan 1 mg tablet p.o. q.4 hours as needed for anxiety. 7. Tramadol 50 mg p.o. q.6h as needed for pain. DISCHARGE DIAGNOSES: 1. 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 2. 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 3. History of gallbladder cancer status post resection and subsequent to hepatic resection Dr. Brandon Garcia, 2017. 4. Anxiety. 5. Opiate dependency. FOLLOWUP PLANS: She is return to see me in approximately 4 weeks. She will see Dr. Riggins in 2 to 3 weeks for consideration of additional treatment. MD HILARIO Xavier/JE /[id number] cc: Chad C ReinaldoMD Sagar mar MD Dr. Reddy Andrew L Bower, MD Copies: CHAD RIGGINS MD PATIENT NAME: MARIA ELENA CORBIN DISCHARGE SUMMARY DATE OF : 62 REPORT #: [id number] PHYSICIAN: KETURAH SAVAGE MD PCP: [facility] REPORT IS CONFIDENTIAL AND NOT TO BE RELEASED WITHOUT AUTHORIZATION [address] [address] Draft SAGAR HASSAN MD, ANDREW L MD ~ PATIENT NAME: MARIA ELENA CORBIN DISCHARGE SUMMARY DATE OF : 62 REPORT #: [id number] PHYSICIAN: KETURAH SAVAGE MD PCP: [facility] REPORT IS CONFIDENTIAL AND NOT TO BE RELEASED WITHOUT AUTHORIZATION
[~2019-05-09 16:28] MED LIST changes: +CARBOPLATIN150 MG IV; +CIPRO500 MG PO; +DURAGESIC1 EAC1 TD; +DURAGESIC1 EACH TD; +ESTRADIOL10 MCG; +FENTANYL1 EAC4 TD; +MAGNESIUM100 MG PO; +MAGNESIUM400 MG PO; +NORCO 7.5-3251 EACH PO; +STOOL SOFT-STI1 EACH PO; +TYLENOL325 MG PO; +[UNRECOGNIZED DRUG - OTHER] IV
--- OUTSIDE RECORDS SUMMARY | 2019-05-09 16:32 | XMS ---
PreManage Notification: MARIA ELENA CORBIN Security Community Marketing Coordinator Events No recent Security Events currently on file CRITERIA MET - History of Sepsis Dx - PDMP CARE PROVIDERS GILSON Soler Internal Medicine: Medical Oncology Carla BONILLA PHONE: [phone] AHMET HOLLY Current PHONE: [phone] ST RICARDA MEAD Case or Battery Inspector Current [facility] PHONE: [phone] GILSON BONILLA Primary Care 02/14/2015-Carla Soler PHONE: Unknown [facility] has no Care Guidelines for this patient. Care History Medical/Surgical 06/09/2017 [facility] HISTORY GALLBLADDER CANCER WITH METS. E.DTimmy VISIT COUNT (12 MO.) [facility] NOTE: Visits indicate total known visits. ED/UCC VISIT TRACKING (12 MO.) 05[facility]09/2019 [facility] [place] [facility] COMPLAINT: - ABD PAIN INPATIENT VISIT TRACKING (12 MO.) No inpatient visits to display in this time frame [id number]
[2019-05-09] MEDS ORDERED: DILAUDID1 MG/ML PO (16:44)
--- NOTE | 2019-05-09 22:15 | NUR ---
pt ON FLOOR. LAYING IN BED WITH TEARS IN EYES COMPLAINING OF 9/10 PAIN "WHEN IT CRAMPS" INDICATING HER ABD.
[2019-05-09] MEDS ORDERED: MIRALAX17 GM PO (22:47)
[2019-05-09] MEDS ORDERED: CALCIUM-MAGNES1 EAC7 PO (22:49)
--- NOTE | 2019-05-09 23:31 | NUR ---
ASSESSMENT DONE. pt REPORTED 4/10 BASELINE PAIN WITH CRAMPS THAT INCREASED TO 9/10. PRN PAIN MEDICATION GIVEN, pt WILL CALL WHEN SHE NEEDS MORE MEDICATION. PROVIDED CLEAR LIQUIDS AND WARM BLANKETS. MEDICATIONS GIVEN (SEE MAR). BLOOD PRESSURE TAKEN MANUALLY. pt ON DROPLET PRECAUTIONS AT THIS TIME PER PHYSICIAN NOTE. CALL LIGHT WITHIN REACH. NO FURTHER REQUESTS AT THIS TIME.
--- NOTE | 2019-05-10 00:27 | NUR ---
ROUNDED ON pt. RESTING WITH EYES CLOSED, RESPIRATIONS REGULAR AND UNLABORED, RATE = 22. CALL LIGHT WITHIN REACH.
--- NOTE | 2019-05-10 02:00 | NUR ---
CALL LIGHT ON. PRN PAIN MEDS GIVEN FOR 08/23 PAIN. VITALS AND I&O RECORDED. pt REQUESTED TO BE WOKEN IN 1 HOUR. NO FURTHER REQUESTS AT THIS TIME. CALL LIGHT WITHIN REACH.
--- NOTE | 2019-05-10 03:21 | NUR ---
ROUNDED ON pt. RESTING WITH EYES CLOSED, WOKE TO VOICE. REQUESTED PRN PAIN MEDS FOR 5/10 PAIN, GIVEN (SEE MAR). PROVIDED FRESH WATER. NO FURTHER REQUESTS AT THIS TIME. CALL LIGHT WITHIN REACH.
--- NOTE | 2019-05-10 04:15 | NUR ---
pt REPORTED 5/10 PAIN. PRN PAIN MED GIVEN (SEE MAR). CALL LIGHT WITHIN REACH.
--- NOTE | 2019-05-10 05:50 | NUR ---
pt REPORTED 5/10 PAIN. PRN PAIN MED GIVEN (SEE MAR). LAB INTO DRAW. pt AMBULATED TO TOILET TO VOID AND BACK TO BED. PROVIDED WARM BLANKETS. CALL LIGHT WITHIN REACH.
--- NOTE | 2019-05-10 06:13 | NUR ---
pt RESTED ON AND OFF DURING SHIFT. PAIN 5/10 TO 8/10 REQUIRING FREQUENT DOSING OF PRN NARCOTIC. pt REPORTING CRAMPING PAIN THAT COMES WITH GURGLING. PASSING GAS, NO BM THIS SHIFT. SBA. IVF INFUSING. CLEAR LIQUID DIET. pt REQUESTING SURGICAL CONSULT WITH DR SAVAGE. ON ISOLATION PRECAUTIONS pt HAS COVID-19 TEST RESULTS PENDING. USES CALL LIGHT APPROPRIATELY.
--- NOTE | 2019-05-10 06:20 | NUR ---
pt REPORTED CRAMPING, UP TO TOILET, MEDIUM BM, BROWN IN COLOR, FORMED. pt BACK TO BED. CONTINUED TO COMPLAIN OF CRAMPS. CALL LIGHT WITHIN REACH.
--- NOTE | 2019-05-10 07:13 | NUR ---
pt REPORTED 5/10 PAIN. PRN PAIN MED GIVEN (SEE MAR). CALL LIGHT WITHIN REACH.
--- NOTE | 2019-05-10 08:02 | NUR ---
REPORT RECEIVED. PT IN ROOM WITH KASK ON D5 1/2NS WITH 20K AT 125 INFUSING. DROPLET PRECAUTIONS IN PLACE. PT IS ALERT AND ORIENTED. CALL LIGHT IN REACH.
--- NOTE | 2019-05-10 09:08 | NUR ---
IN TO ROOM FOR ASSESSMENT. GOWN, GOGGLES, DOUBLE GLOVES WORN. PT ALSO W/ MASK VITALS TAKEN AND STABLE. PT WITH ONE UNMEASURED VOID AND 1 MEDIUM HARD BOWEL MOVEMENT. PT STILL COMPLAINING OF ABDOMINAL PAIN/ CRAMPING INTERMITTENTLY. BOWEL TONES ACTIVE. PASSING FLATUS . NAUSEA / VOMITTING. 25MCG OF SUBLIMAZE ADMINSTERED. PAIN REPORTED 6/10. FLUIDS INFUSING PER ORDER. CLEAR TRAY PROVIDED. CALL LIGHT IN REACH. DENEIS FURTHER NEEDS.
--- NOTE | 2019-05-10 11:21 | NUR ---
DANIKA BAJWA REQUESTED I NOT DISTURB PT AT THIS TIME. WILL CHECK BACK
--- NOTE | 2019-05-10 11:38 | NUR ---
PT WITH 500ML GREEN EMISIS. DENEIS NAUSEA AT THIS POINT, REFUSES ZOFRAN. PAIN 07/24 REQUESTING PAIN MEDICATION. 25 MCG FENTANYL ADMINISTERED. SET UP FOR INDEPENDENT SHOWER. DRANK 300 ML FLUID. PT CRYING WITH CRAMPS. KEY NFOR PORT ACCESS AFTER SHOWER.
--- NOTE | 2019-05-10 12:28 | NUR ---
CM assessment completed by phone with Aura as she has had exposure to Covid virus. Pt agrees to assessment but asks if she is being discharged. Reassured I am completing assessment to make sure she has what she needs for safe discharge to home. Pt states she lives with her spouse and he assists her with shopping, house work, transportation if needed. 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 Denies use of any DME, does have a ramp if needed. Plans to dc to home with spouse when cleared by
--- NOTE | 2019-05-10 13:34 | NUR ---
RIGHT CHEST PORT ACCESS WITH STERILE TECHNIQUE. PT TOLERATED WE.. HEP LOCKED. DENEIS PAIN OR NASUEA AT THIS TIME.
--- NOTE | 2019-05-10 14:02 | NUR ---
BECAUSE OF PRECAUTIONS I AM UNABLE TO VISIT PT IN PERSON AT THIS TIME. CALLED PT AND HAD A PRODUCTIVE VISIT. SHE HAS SLEPT WELL TODAY, CRAMPS HAVE BEEN WAKING HER. PT UNDERSTANDS THE SITUATION REGARDING RESTRICTED VISITATION. PT MENTIONED HER FAMILY ALSO UNDERSTANDS. PT REQUESTED PRAYER, WILL FOLLOW
--- NOTE | 2019-05-10 14:58 | NUR ---
VITALS TAKEN AND STABL.E PAIN 6/10 PRN PAIN MEDS GIVEN. DENIES NAUSEA. BOWEL TONES ACTIVE. CRAMPS STILL RPESENT. STILL PASSING FLATUS AND HARD STOOLS. WATER AND WARM BLANKETS PROVIDED.
[2019-05-10] MEDS ORDERED: ATIVAN1 MG PO (15:50)
[2019-05-10] MEDS ORDERED: ULTRAM50 MG PO (15:56)
--- NOTE | 2019-05-10 15:58 | NUR ---
MED REC COMPLETED USING MEDICATION FILL HISTORY AND [facility] MEDICAL RECORDS.
--- NOTE | 2019-05-10 16:45 | NUR ---
PT APPEARS TO SLEEPING PEACFULLY. AWAKES TO VERBAL STIMULI. BEGINS TO CRY ONCE AWOKEN. ASSISTED PT TO NEW ROOM. VOIDED THEN BACK TO BED. FEEL BACK ASLEEP.
--- NOTE | 2019-05-10 17:08 | NUR ---
BROUGHT BY PERSONAL ITEMS. TO ROOM RTO GIVEN PT ITEMS. PT APPEARS TO BE SLEEPING PEACFULLY. AWAKENS TO VERBAL STIMULI. BEGINS TO CRY ONCE AWAKE. CONSOLES EASILY. CALL LIGHT IN REACH.
--- NOTE | 2019-05-10 18:09 | NUR ---
ATTEMPTED TO GET PT UP TO AVMULATE HALLS. PT REFUSED. WILL TRY AGAIN LATER.
--- NOTE | 2019-05-10 19:00 | NUR ---
PT WIHT 200ML BROWN EMISIS. ZOFRAN ADMINSTERED. DR COWART NOTIFIED. NO NEW ORDERS.
--- NOTE | 2019-05-10 19:06 | NUR ---
IN ROOM FOR REPORT, PT IS AWAKE IN BED. SHE WAS JUST GIVEN PO DILAUDID AND NOT HAPPY ABOUT HAVING PO PAIN MEDS. PT STATES SHE WILL NOT BE ABLE TO KEEP IT DOWN. SHE IS MOANING AND CRYING. PT STATES SHE WILL CALL IF SHE VOMITS. CALL LIGHT IS CLOSE.
--- NOTE | 2019-05-10 19:22 | NUR ---
PER RN GARETT REQUEST I GAVE PT A HOT PACK. PT NEEDS NOTHING MORE AT THIS TIME.
--- NOTE | 2019-05-10 19:49 | NUR ---
PT HAD 200 OF EMESIS AND REPORT HER PAIN IS STILL AT AN 8/10. SHE IS CRYING AND MOANING AND HAS NO OTHER NAUSEA MEDS AVAILABLE. SHE IS ASKING FOR IV PAIN MEDS. ADVISED HER SHE CAN HAVE ATIVAN AT THIS TIME, THEN WE WILL CHECK WITH DR COWART ABOUT OUR OPTIONS.
--- NOTE | 2019-05-10 20:10 | NUR ---
ATIVAN ADMINISTERED, CALLED DR COWART TO REPORT PT'S PAIN AND NAUSEA. HE WILL PUT IN NEW ORDERS.
--- NOTE | 2019-05-10 20:30 | NUR ---
PT CONTINUES TO REPORT PAIN AT 8, SHE STATES AFTER HAVING THE ATIVAN HER NAUSEA HAS GONE AWAY. ADMINISTERED 1 MG IV DILAUDID. PT ALREADY REPORTS PAIN IS DECREASING AND IS READY TO GO ON A WALK. MAY CARTOGRAPHIC DESIGNER WILL TAKE HER FOR A WALK IN THE HALLS. PT DENIES FURTHER NEEDS AT THIS TIME. CALL LIGHT IS CLOSE.
--- NOTE | 2019-05-10 20:45 | NUR ---
WALKED WITH PT IN THE MED SURG [place]AIRE[place] TWICE AROUND. PT WANTED TO GO BACK TO HER ROOM. PT NEEDS NOTHING MORE AT THIS TIME.
--- NOTE | 2019-05-11 01:56 | NUR ---
ADMINISTERED DILAUDID FOR 6/10 CRAMPING ABDOMINAL PAIN. PT WAS ABLE TO EAT A JELLO. SHE CONTINUES TO PASS GAS BUT NO MORE BMS TONIGHT YET. SHE IS VOIDING QS URINE. IV IS INFUSING FINE AND PT DENIES FURTHER NEEDS. CALL LIGHT IS CLOSE.
--- NOTE | 2019-05-11 04:17 | NUR ---
PT IS RESTING WITH EYES CLOSED, RR IS EVEN AND NONLABORED. CALL LIGHT IS CLOSE. IV IS INFUSING FINE.
--- NOTE | 2019-05-11 05:30 | NUR ---
ADMINISTERED DILAUDID FOR 8/10 PAIN. PT WAS CRYING IN ROOM AND STATED THE PAIN WAS CONSTANT CRAMPING. ALSO ADMINISTERED ZOFRAN FOR NAUSEA. SHE THEN FELT BETTER AND WAS UP FOR A WALK IN THE [place], SHE MADE IT 2 TIMES AROUND THE CHAIREZ. BOWEL TONES ARE HYPOACTIVE AND ABDOMEN IS SOFT. PROVIDED JELLO AND FRESH WATER TO PT. IV IS INFUSING FINE AND PT DENIES FURTHER NEEDS. CALL LIGHT IS WITHIN REACH.
--- NOTE | 2019-05-11 07:44 | NUR ---
PATIENT SLEEPING WITH REGULAR RESPIRATIONS.
--- NOTE | 2019-05-11 08:22 | NUR ---
Pt crying and states her abd pain is an 8/10. Pt medicated for pain, see Emar.
--- NOTE | 2019-05-11 09:00 | NUR ---
Visit deferred due to pt in isolation.
--- NOTE | 2019-05-11 09:08 | NUR ---
MORNING ASSESSMENT DONE. PATIENT IS RESTING IN BED, PAIN IS ON THE DECLINE TO 5/10 DUE TO RECENT MEDICATION. IV PROTONIX GIVEN. PATIENT HAS ACTIVE TO HYPERACTIVE BOWEL TONES.
--- NOTE | 2019-05-11 11:04 | NUR ---
RN IN TO SILENCE IV ALARM. PT REQUESTED PAIN MEDS, IT IS STILL TOO EARLY. RN WILL RETURN WHEN TIME. PT IS VERY TEARY AND SOBBING.
--- NOTE | 2019-05-11 11:51 | NUR ---
PT RESTING IN BED, WATCHING TV. I AM FAMILIAR WITH THIS PT AND SHE BEGAN TO RELATE TO ME HER STRUGGLE AND FEAR. LAST TIME SHE SAID THIS HAPPENED, SHE LOST 40 LBS AND HAD TO HAVE NUTRITION THROUGH HER PORT. ALSO CONCERNED ABOUT ISSUES WITH HER FAMILY, PT NEEDED TO VENT AND EMOTIONS FLOWED. SHE DID SAY PAIN HAS IMPROVED-ROUGH NIGHT THOUGH. PT REQUESTED PRAYER AND ASKED IF I WOULD CONTACT HER FAMILY FOR HER SINCE THEY CANNOT VISIT-WHICH I DID.
--- NOTE | 2019-05-11 12:08 | NUR ---
LEFT A/C IV SITE D/C'D PER ROUTINE PROTOCOL. RIGHT CHEST PORT PREVIOUSLY ACCESSED, FLUSHED WITH 10CC NS AND USED FOR CONTINUOUS IVF.
--- NOTE | 2019-05-11 15:51 | NUR ---
DR RIGGINS IS IN ROOM ROUNDING ON PATIENT.
--- NOTE | 2019-05-11 18:13 | NUR ---
PT REQUESTED TO GO FOR A WALK. DR COWART STATED SHE DID NOT HAVE TO BE ON PRECAUTION AT THIS TIME. WILL HAVE PT WEAR A MASK WHILE IN THE [place].
--- NOTE | 2019-05-11 18:34 | NUR ---
PATIENT AND I WALKED TWO LAPS AROUND MED SURG. PATIENT WORE HER MASK. ALSO HELPED HER STRAIGHTEN UP HER BED.
--- NOTE | 2019-05-11 20:04 | NUR ---
r chest portacath infusing w/o problems, no c/o pain or n/v. coop with assessment, alet and oriented, watching tv,
--- NOTE | 2019-05-11 20:35 | NUR ---
Pt medicated with Dilaudid 1mg IV per abd pain. Up to br, voided, back to bed
--- NOTE | 2019-05-11 23:36 | NUR ---
c/o 11/23 abd pain, medicated with Dilaudid 1mg IV
--- NOTE | 2019-05-12 02:30 | NUR ---
PT RESTING, EYES CLOSED, NO RESP DISTRESS, IVF INFUSING, PT ON ROOM AIR. CALL LIGHT AND FLUIDS AT BEDSIDE
--- NOTE | 2019-05-12 04:01 | NUR ---
uP TO BR, VOIDED, BACK TO BED, INDEPENDENT, TOLERATED WELL, C/O 6/10 ABD PAIN, MEDICATED WITH DILAUDID 1MG IV. CONTINOUES MONICA NPO. DOES OWN MOUTH CARE. CALL LIGHT AT BEDSIDE, IVF INFUSING
--- NOTE | 2019-05-12 04:18 | NUR ---
PT HAD SMALL AMOUNT OF EMESIS AT END OF AM SHIFT. HAS HAD NO EMESIS THIS SHIFT. CONTINOUS ON NPO STATUS. ON ROOM AIR, IVF INFUSING W/O PROBLEMS. HAS BEEN MEDICATED WITH DILAUDID 1MG IV X3 PER C/O ABD PAIN /CRAMPING. HEA,NO BM MEDS EFFECTIVE. INDEPENDENT IN ROOM, VOIDING QS. NO COUGH THIS SHIFT, LUNGS CLEAR BILAT.
--- NOTE | 2019-05-12 06:34 | NUR ---
c/o 07/24 abd pain/cramping, medicated with tylenol iv
--- NOTE | 2019-05-12 07:06 | NUR ---
pt back from xr
--- NOTE | 2019-05-12 07:17 | NUR ---
c/o 07/24 abd pain, medicated with dilaudid 1mg iv
--- NOTE | 2019-05-12 07:53 | NUR ---
RECIEVED BEDSIDE REPORT FROM DANIKA MILES. PT HAD AN XRAY AT SHIFT CHANGE. MEDICATED WITH DILAUDID Q3 HRS. PT IS VERY TEARFUL.
--- NOTE | 2019-05-12 10:23 | NUR ---
PT IS RESTING COMFORTABLY. TORADOL GIVEN, PT PANICKED, THINKING HER DILAUDID WAS DISCONTINUED. PT IMMEDIEATLY BECAME TEARFUL AND ANGRY. RN EXPLAINED TORADOL IS AN ADDITIONAL MEDICATION THAT WILL BE MORE EFFECTIVE ON THE "ACHY" PAIN. PT STILL DEMANDED THE DILAUDID Q 3 HRS.
--- NOTE | 2019-05-12 11:22 | CONS ---
[facility] [address], [place] [address] Signed DATE OF CONSULTATION: 05/11/2019 CONSULTING PHYSICIAN: Keturah Savage MD REQUESTING PHYSICIAN: Dr. Cowart. 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 HISTORY OF PRESENT ILLNESS: This 58-year-old [place] woman is well known to me from the past. She presented to the emergency room at 4:45 p.m. on May 08, and evaluated by Dr. Taylor and subsequently admitted by Dr. Hassan with findings consistent with low-grade small-bowel obstruction based on CT scan. Her chief complaint was abdominal pain and cramping in the midabdomen. The patient had called our office several days prior to this hoping for an office visit, however, based on her health plan at [facility] did require a referral. The patient is known to me from the past having undergone a palliative PEG tube placement when intractable bowel obstruction likely related to malignancy had been identified. The PEG tube was not for enteral nutrition, but rather as a "blow hole" for her intractable nausea and vomiting. It was successful for that purpose. The patient is under the care of Dr. Riggins and has had various chemotherapy regimens over time. She has not had chemotherapy for quite some time. 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 She had recently undergone PEG tube placement at that time with conversion of her PEG tube to a gastrostomy button. In December of this past year, she was considered to have no evidence of disease based on a PET scan and insisted that her gastrostomy button be removed, which was in my office without problem. It is noted her original diagnosis of biliary cancer was in 2012 [address] ch[address] by Dr. Brandon Garcia. She has been admitted to the hospital and maintained with IV fluids under the direction of Dr. Hassan, and care now is seen by Dr. Cowart. She continues to have episodic abdominal pain. She has had three episodes of vomiting since hospitalization, but declined a nasogastric tube which had been offered. Electronically Signed By: KETURAH SAVAGE MD 05/12/19 1122 PATIENT NAME: MARIA ELENA CORBIN CONSULTATION DATE OF : 62 REPORT #: [id number] PHYSICIAN: KETURAH SAVAGE MD PCP: [facility] REPORT IS CONFIDENTIAL AND NOT TO BE RELEASED WITHOUT AUTHORIZATION [facility] [address], [place] [address] scan that was performed at the time of her presentation (May 09, 2019) showed a postsurgical changes of the liver, having undergone resection as well as cholecystectomy, but a new liver lesion suspicious for metastatic disease, 15 mm in size in lateral dome of the liver. It is considered likely a metastatic focus. There is a left ureteral stent which was in good position and had been changed relatively recently. She had numerous diverticular changes of the colon and no sign of acute diverticulitis. There were numerous segments of mildly distended small bowel with air-fluid levels measuring up to 35 mm in diameter with decompressed bowel segments seen in the left upper and right lower abdomen. A small supraumbilical hernia of small bowel previously demonstrated was no longer present. There is absence of the uterus. Since admission, she continues to have paroxysms of pain from time to time, which is currently managed with Dilaudid on a q.3 hours basis. She has not had other medications for pain control at this time. An abdominal x-ray was performed today showing probable ongoing small bowel obstruction with bowel dilation present throughout the midabdomen, individual loops measuring up to 39 mm in diameter. There is no evidence of colonic stool to suggest obstruction based on fecal impaction. REVIEW OF SYSTEMS: She denies any shortness of breath or chest pain. She has been without any symptoms of sore throat or anything to suggest a Covid virus, which is a currently in a global pandemic. She has remained n.p.o. She has had bowel movement at least once since admission. No sign of blood in that. She has had three episodes of emesis, none recently. She does continue to have episodes of midabdominal pain. PHYSICAL EXAMINATION: GENERAL: Pleasant [place] woman, who does not appear to be toxic. VITAL SIGNS: Temperature currently 99.0, pulse 74, blood pressure 119/66, and room air saturation is 96%. HEENT: Mucous membranes were reasonably moist. Trachea is midline. She has no cervical adenopathy. CHEST: Clear. HEART: Regular without murmur. ABDOMEN: Scaphoid and nondistended particularly. She has right subcostal and midline incision. I detect no hernia. She has a somewhat doughy-appearing abdomen on palpation. No obvious ascites. There is no focal tenderness. Mild vague abdominal tenderness is noted. EXTREMITIES: Show no clubbing, cyanosis, or edema. She does not have sequential compression device stockings in place. She is noted to have Lovenox given subcutaneously daily (40 mg). MEDICATIONS: Electronically Signed By: KETURAH SAVAGE MD 05/12/19 1122 PATIENT NAME: MARIA ELENA CORBIN CONSULTATION DATE OF : 62 REPORT #: [id number] PHYSICIAN: KETURAH SAVAGE MD PCP: [facility] REPORT IS CONFIDENTIAL AND NOT TO BE RELEASED WITHOUT AUTHORIZATION [facility] [address], [place] [address] Signed Her current medicines include: 1. Lovenox. 2. Phenergan. 3. Compazine. 4. Dilaudid 0.5 mg IV q.3 hours p.r.n. pain. 5. Ativan 1 mg p.o. q.4 hours p.r.n. anxiety. LABORATORY STUDIES: Lab studies at admission showed a white count of 14.6, yesterday 10.2; hematocrit 42.1, subsequently 38.4; and platelet count is 143,000 yesterday. Coag studies are normal with an INR of 1.0. Urinalysis is notable for moderate urine blood, 10 rbc's per high-power field and 10 white cells per high-power field, 2+ bacteria (note the patient does have a left ureteral stent). I reviewed her CT scan in detail as well as subsequent x-rays. ASSESSMENT: The patient likely does have an incomplete small bowel obstruction. 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 A PEG tube that had been placed in the past was for palliative intent of decompression related to intractable nausea and vomiting, subsequent severe esophagitis, that tube has since been removed. She may well have adhesions as a source for her obstruction or of course malignant disease, both equally probable in fact. A lesion of metastatic likelihood is noted in the dome of the liver. She is no longer on a chemotherapy regimen and has not been since last summer by the sounds of it. She has always been considered likely to have a terminal and incurable metastatic cancer related to the gallbladder initially, but has surprised all including me of her tenacity and survival despite all evidence contrary to that likelihood. She does have a Port-A-Cath in place and indeed was on home TPN at one point. For now, continued IV fluids and n.p.o. status would be appropriate. If spontaneous resolution of the bowel obstruction could be had that would be beneficial obviously. She may require operative intervention. Operative intervention would be revealing as to the source of her obstruction if it does not resolve on its own and may well be related to carcinomatosis, not otherwise recognized on imaging studies at this time. In the meantime, additional control of her vague abdominal pain with Toradol and IV Tylenol would be reasonable. She should continue on narcotic medication (Dilaudid) as she would have a strong likelihood of withdrawal syndrome independent of her current Electronically Signed By: KETURAH SAVAGE MD 05/12/19 1122 PATIENT NAME: MARIA ELENA CORBIN CONSULTATION DATE OF : 62 REPORT #: [id number] PHYSICIAN: KETURAH SAVAGE MD PCP: [facility] REPORT IS CONFIDENTIAL AND NOT TO BE RELEASED WITHOUT AUTHORIZATION [facility] [address] [place] [phone] Signed symptoms otherwise. As regards, nutritional support, TPN is a consideration, but should be very carefully considered. The end point of intravenous nutrition for patients with advanced malignancy is sometimes problematic. We must admit that it was beneficial to her in the past when only comfort care measures were considered reasonable at that time. I discussed all this with her and she is in agreement to this approach, reviewed this also with Dr. Cowart. We will order IV non-opiates at this time. Followup KUB tomorrow, and CBC and electrolytes. MD HILARIO Xavier/MODL /[id number] cc: MD Sagar Rice, MD Chad Riggins MD Copies: RADHA COWART MD,SAGAR RIGGINS,CHAD Soler MD ~ Electronically Signed By: KETURAH SAVAGE MD 05/12/19 1122 PATIENT NAME: MARIA ELENA CORBIN CONSULTATION DATE OF : 62 REPORT #: [id number] PHYSICIAN: KETURAH SAVAGE MD PCP: [facility] REPORT IS CONFIDENTIAL AND NOT TO BE RELEASED WITHOUT AUTHORIZATION
--- NOTE | 2019-05-12 23:10 | NUR ---
medicated with tylenol iv 07/24 abd pain
--- NOTE | 2019-05-13 00:03 | NUR ---
Resting, eyes closed, on room air, no further c/o pain, no n/v
--- NOTE | 2019-05-13 00:30 | NUR ---
c/o 09/23 abd pain, medicated with dilaudid 1mg iv
--- NOTE | 2019-05-13 03:24 | NUR ---
Pt resting, on room air, IVF infusing R porth a cath patent. call light at bedside
--- NOTE | 2019-05-13 05:17 | NUR ---
MEDICATED WITH DILAUDID 1MG IV PER C/O 6/10 ABD CRAMPING AND ZOFRAN 4MG IV PER C/O NAUSEA, ANXIOUS, REASSURED, CALMED DOWN. IVF INFUSING NPO
--- NOTE | 2019-05-13 05:28 | NUR ---
PT HAS BEEN ANXIOUS, EASILY CONSOLLED, HAS BEEN MEDICATED WITH OFIRMEVX1 AND DILAUDID X2 WITH GOOD TO FAIR PAIN RELIEF FOR AB CRAMPING. WAS MEDICATED WITH ZOFRAN X1 PER DRY HEAVING, EFFECTIVE, CONTINUOUS TO BE NPO. IVF INFUSING R CHEST PORTHACATH PATENT. PT VODING QS
--- NOTE | 2019-05-13 07:59 | NUR ---
REPORT RECEIVED. PT STANDING IN ROOM GETTING READY TO GO TO BATHROOM. REPORTS SOME PAIN RETURNING. CALL LIGHT IN REACH.
--- NOTE | 2019-05-13 08:18 | NUR ---
PT SALINE LOCKED AND OFF FLOOR TO IMAGING. PT WITH MED BOWEL MEVEMENT BEFORE LEAVING. REPORTING SOME NASUEA.
--- NOTE | 2019-05-13 10:13 | NUR ---
PT WITH 300ML BROWN EMISIS. CRYING IN PAIN. REPORTING 08/23. TORIDOL AND TYLEON ADMINSITERED. CALL LIGHT IN REACH.
--- NOTE | 2019-05-13 10:16 | NUR ---
REPORT GIVEN TO ANTIONE GARNICA.
--- NOTE | 2019-05-13 10:25 | NUR ---
ASSUMED CARE OF PT FROM GARETT. MEDICATED PT WITH 1MG DILAUDED AND 5MG COMPAZINE. PT IS VERY TEARY AND EMOTIONAL.
--- NOTE | 2019-05-13 11:34 | NUR ---
NG TUBE PLACED BY DR SAVAGE. APROX 100 ML OF DARK BROWN BILE EXTRACTED. PT TOLERATED PROCEDURE WELL, DR SAVAGE USED LIDOCAINE GEL. TUBE SECURED TO GOWN AND NOSE. NG PLACED ON LIWS. WILL CONTINUE TO MONITOR.
--- NOTE | 2019-05-13 12:56 | NUR ---
PT UP TO VOID. NGT PUTTING OUT LARGE AMOUNTS OF BROWN BILE. PT REPORTS DISCOMFORT, DECLINES LONZENGE OUT OF FEAR OF SWALLOWING IT. PT IS TEARY AND EMOTIONAL.
--- NOTE | 2019-05-13 13:59 | NUR ---
PT TOLERATING NG TUBE WELL. REQUESTED DILAUDID AND CEPACOL.
--- NOTE | 2019-05-13 14:52 | NUR ---
GAVE REPORT TO DANIKA BAJWA. SHE IS RESUMING CARE OF PATIENT.
--- NOTE | 2019-05-13 15:08 | NUR ---
RECEIVED REPORT FROM ANTIONE GARNICA.
--- NOTE | 2019-05-13 17:39 | NUR ---
REPORTING 5/10 PAIN. PRN OFIRMEV GIVEN. AMBULATED PT 2 LAPS IN CHAIREZ. TOLERATED WELL. REPORTING INCREASE IN PAIN ONCE BACK TO BED. PRN DILAUDID GIVEN. NG TUBE BACK TO LIWS. IV INFUSING. PT IN BED. DENIES NEEDS. CALL LIGHT IN REACH.
--- NOTE | 2019-05-13 21:09 | NUR ---
in bed, NGT R NARE PATENT, DRAINING DARK GREEN-BROWN THICK DISCHARGE. NGT OT LIWS. NO C/O EMESIS, C/O ABD PAIN. MEDICATED WITH DILAUDID 1MG IV. IVF INFUSING W/O PROBLEMS
--- NOTE | 2019-05-13 21:10 | NUR ---
ACCOMPANIED PATIENT AMBULATE AROUND THE HALLWAY X 3.
--- NOTE | 2019-05-13 21:30 | NUR ---
LIVE STUDY MANAGER ROUNDING NOTE. PT RESTING IN BED. STATES THAT SHE NEEDS TO USE THE BATHROOM. NG TUBE DISCONNECTED FROM SUCTION. SPECIAL EVENTS MANAGER ASSISTED PT TO THE BATHROOM. PRIMARY RN NOTIFIED OF PT'S REQUEST FOR PRN PAIN MEDS. PT DENIES FURTHER NEEDS.
--- NOTE | 2019-05-13 21:56 | NUR ---
Walking hallway, no further c/o pain, ngt patent. ivf infusing R portacath
--- NOTE | 2019-05-13 23:35 | NUR ---
c/o feeling nauseated, medicated with Zofran 4mg IV, HOB elevated, NGT inplace, patent to JORGE, NPO, IVF infusing
--- NOTE | 2019-05-14 00:26 | NUR ---
c/o abd pain 09/23, medicated with dilaudid 1mg iv
--- NOTE | 2019-05-14 01:20 | NUR ---
ANSWERED CALL LIGHT. WALKED WITH PATIENT AROUND THE HALLWAY 3 LAPS. PATIENT DID BRUSH HER TEETH. PATIENT IS BACK IN BED. NGT ON. CALL LIGHT IN REACH.
--- NOTE | 2019-05-14 01:58 | NUR ---
walked hallways earlier, up to br , voided, no further c/o n/v or abd pain at this time, NGT patent
--- NOTE | 2019-05-14 04:19 | NUR ---
pt dry heaving, medicated with compazine 5mg IV, c/o 07/24 abd cramping, medicated with Tylenol IV. labile mood crying, anxious, angrey, easily redirected
--- NOTE | 2019-05-14 05:20 | NUR ---
up to br, voided, backa to bed, tolerated well, c/o 6/10 abd pain, medicated with dilaudid her choice.
--- NOTE | 2019-05-14 06:20 | NUR ---
PT NGT to LIWS, patent. Pt on room air. Has been medicated with Ofirmex x1-Dilaudid x3 and Toradol x1 per c/o abd cramping and pain with good to fair pain relief. Medicated with Zofran X1 and Compazine x1 per c/o feeling nauseated and dry heaving, good pain relief. Pt NPO. using Cepacol lozangers per c/o sore throat. IVF infusing well R portacath. Up to br with assist, voiding QS. Continues to have labile mood and very anxious easily redirectable, using call light appropriately
--- NOTE | 2019-05-14 07:42 | NUR ---
RECEIVED REPORT FROM DANIKA MILES. PT IN BED. ALERT, CALM. NO DISTRESS NOTED. NO NEEDS AT THE MOMENT.
--- NOTE | 2019-05-14 08:57 | NUR ---
PT CALLED FOR PAIN MEDICATION. REPORTED PAIN 08/23. SEE MAR FOR MEDICATIONS ADMINISTRATION. DONE WITH ASSESSMENT. WILL BE BACK TO REASSESS FOR PAIN.
--- NOTE | 2019-05-14 10:45 | NUR ---
PT GETTING READY FOR THE SURGERY. REPROTED PAIN 08/23. SEE MAR FOR MEDICATION ADMINISTRATION.
--- NOTE | 2019-05-14 11:38 | NUR ---
PT CALLED AND REPORTED PAIN 09/23. SEE MAR FOR MEDICATION ADMNISTRATION. PT TEARFUL BUT THANKFUL AND POLITE. GETTING READY FOR THE SURGERY AT 1 PM.
--- NOTE | 2019-05-14 12:41 | NUR ---
PT RESTING IN BED WITH TV ON AND NG TUBE IN. SHE IS TO HAVE SURGERY THIS PM AND REQUESTED I UPDATE HER FACESHEET-ADDING HER MOTHER. SHE ALSO REQUESTED I CONTACT HER MOTHER AND AND GIVE UPDATES WHICH I DID ON ALL REQUESTS. PT IS VERY FEARFUL, IN PAIN AND EMOTIONAL. SHE REQUESTED PRAYER, WILL CHECK BACK AGAIN
--- NOTE | 2019-05-14 17:09 | EKG ---
[facility] [address] [place] [address] Signed Normal sinus rhythm Normal ECG When compared with ECG of 07-NOV-2017 13:29, fusion complexes are no longer present Vent. rate has decreased BY 56 BPM Confirmed by RADHA COWART MD ([id number]) on 05/14/2019 5:09:52 PM Electronically Signed By: RADHA COWART MD 05/14/19 1709 PATIENT NAME: MARIA ELENA CORBIN Electrocardiogram DATE OF : 62 PHYSICIAN: RADHA COWART MD REPORT #: [id number] REPORT IS CONFIDENTIAL AND NOT TO BE RELEASED WITHOUT AUTHORIZATION
--- NOTE | 2019-05-14 17:16 | NUR ---
05/14/19 171 Olga Harper 1702 PATIENT TO PACU, BEDSIDE REPORT RECIEVED. DRESSING TO ABDOMEN C/D/I, TUBE IN PLACE. DAVONTE DRAINING RED DRAINAGE. SERA GARNICA REPLACED CENTRAL LINE DRESSING. ORAL AIRWAY IN PLACE. FOGGING AT MASK, BREATHING EVEN. 1712 PATIENT NOW AWAKE, SELF PULLED AIRWAY, BREATHING EASY. PATIENT ASKING QUESTIONS. REORIENTED PATIENT, AND PROVIDED REASSURANCE. VSS.
--- NOTE | 2019-05-14 18:48 | NUR ---
PT BACK FROM SURGERY. FIRST SET OF POST OP VITALS TAKEN AT 1800, WNL. PAIN MANAGEMENT OK, SEE MAR. HAS TELLO, DRAINS YELOOW CLEAR URINE, G TUBE, PG DRAIN. SDS ON. SPO2 100% ON RA.
--- NOTE | 2019-05-14 19:06 | OR ---
[facility] [address], [place] [address] Signed DATE OF OPERATION: 05/14/2019 SURGEON: Keturah Savage MD PREOPERATIVE DIAGNOSES: 1. Persistent unrelenting small bowel obstruction. 2. History of metastatic cholangiocarcinoma (gallbladder cancer). 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 PROCEDURE: 1. Open laparotomy with extensive lysis of adhesions. 2. Biopsy of peritoneal nodule. 3. Segmental small bowel resection of ileum. 4. Partial cecectomy with end-to-side ileocolic anastomosis. 5. Placement of open gastrostomy tube (20-Somali HAROON tube). ANESTHESIA: Roberto Corea CRNA. INDICATION: This 58-year-old [place]ian woman is a patient DrTimmy Najera, and a longstanding outpatient at [facility], previously with Valeriy Carmona MD. She has seen Dr. Garcia in the past, having undergone cholecystectomy identifying gallbladder cancer. She underwent right hepatic lobectomy, additional chemotherapy and radiation therapy. She had what was considered recurrence in 2018 with chronic persistent small bowel obstruction, considered likely related to carcinomatosis. She underwent a PEG tube placement for palliative decompression of the gastrointestinal system, which was effective for her; she had suffered severe and intractable vomiting and resultant esophagitis prior to that. She was maintained with palliative chemotherapy under the direction of Dr. Najera and even underwent home TPN for quite some time. In the past several months, she has had very good health overall and PET scan was favorable previously. Indeed, her PEG button tube that I had placed, which had not been used for quite some time was removed at her insistence several months ago. She recently presented to the emergency room, was admitted by Dr. Sagar Hassan and ultimately care assumed by Dr. Cowart for abdominal pain, which has been chronic and recurrent. A CT scan was performed, which showed a possible metastatic lesion of the Electronically Signed By: KETURAH SAVAGE MD 05/14/19 1906 PATIENT NAME: MARIA ELENA CORBIN OPERATIVE REPORT DATE OF : 62 REPORT #: [id number] PHYSICIAN: KETURAH SAVAGE MD PCP: [facility] REPORT IS CONFIDENTIAL AND NOT TO BE RELEASED WITHOUT AUTHORIZATION [facility] [address], [place] [address] Signed liver and the findings consistent with small bowel obstruction. She had declined a nasogastric tube until yesterday when she allowed me to place it. Her bowel obstruction has been unrelenting and her pain has been significant. After appropriate attempts at nonoperative approach, she now is to undergo operation related to the small bowel obstruction. We are mindful that the obstruction may well be related to recurrent metastatic carcinoma from prior gallbladder cancer, but may be related to adhesions or other benign causes as well. She understands the risks of bleeding, infection, recurrent disease, failure to cure, need for bowel resection, need for possible palliative bypass, and other unforeseen complications and she wishes to proceed. FINDINGS: Dense abdominal adhesions to the anterior abdominal wall were noted with the small bowel, but the bowel was freed up ultimately without injury to it. She was found to have multiple nodules of carcinomatosis forming points of fixation and dilation of the bowel throughout the abdomen. The dominant obstructive process, however, was significant pelvic peritoneal carcinomatosis tethering the ileum and causing distortion and complete obstruction of the distal small bowel. Noted additionally was a stub of a probable prior appendectomy. Segmental bowel resection including ileum was anticipated to allow for an ileoileostomy (primary bowel anastomosis). However, it was noted that there was a dense nodule at the junction between the ileum and the cecum, which would likely soon produce bowel obstruction once again and on that basis, additional resection of cecum and remnant of ileum was undertaken allowing for an end-to-side ileal right colonic anastomosis. The site of her prior gastrostomy tube was dissected free, allowing for placement of a HAROON 20-Somali tube so as to avoid postoperative nasogastric intubation and provide for enteral nutrition as necessary. There was surgical absence of the pelvic organs. By conclusion, the bowel is in continuity from the ligament of Treitz distalward to the anastomosis passing intestinal contents into the colon without impediment or leak. The operation was prolonged, complicated, and difficult lasting more than 4 hours. DESCRIPTION OF PROCEDURE: The patient was brought to the operating room, given a general endotracheal anesthetic, preoperative antibiotic of cefoxitin was given, sequential compression device stockings used and heparin subcutaneously had been administered previously (Lovenox actually). A López catheter was placed. The abdomen was prepared with chlorhexidine solution and draped sterilely. There was a right large subcostal incision as well as a midline incision. Midline incision was incised with #15 blade and dissection carried through Electronically Signed By: KETURAH SAVAGE MD 05/14/19 1906 PATIENT NAME: MARIA ELENA CORBIN OPERATIVE REPORT DATE OF : 62 REPORT #: [id number] PHYSICIAN: KETURAH SAVAGE MD PCP: [facility] REPORT IS CONFIDENTIAL AND NOT TO BE RELEASED WITHOUT AUTHORIZATION [place] [phone] Signed the subcutaneous tissue with electrocautery. The midline fascia was incised and dense adhesions to the intraabdominal contents were noted. Meticulous care was taken to free these up. A small incisional hernia was noted in the upper aspect. Ultimately, the abdomen was entered. There was no sign of ascites. There were some dilated loops of bowel, some of them inflamed, but not markedly so. Certainly, no sign of ischemic bowel. Meticulous dissection was undertaken ultimately identifying points of fixation distorting the bowel and providing for incomplete obstruction in several areas. These were found related to dense nodules, most likely carcinomatosis. A marketing representative nodule was excised with a #15 blade. Further dissection of the bowel loops was undertaken freeing the adhesions, whether from simple adhesions or from malignant adhesions. In the pelvis, marked distortion of the bowel was noted and the pelvic peritoneum showed carcinomatosis in the carpet-like configuration. Initially, the ileum which was markedly dilated and distended and contorted related to pelvic carcinomatosis was mistaken for the sigmoid. Further dissection showed this not to be the case. The sigmoid was free and not imminently obstructed, though the development of a Blumer's shelf is likely in the distant future at least. The terminal ileum appeared to be the most dominant site of obstruction. It was densely adherent to the right pelvic sidewall. Consideration was made for palliative ileal right-sided anastomosis. However, the blind loop that would result could become problematic and the extent of her abdominal carcinomatosis was not as extensive as one might imagine. On that basis, resection of the distal ileum was deemed advisable. This was accomplished with extreme care as a dense adhesion of loops of bowel to the right pelvic sidewall was notable. It was ultimately freed up identifying well the right iliac artery and vein and no injury to the area of the ureter. Once the ileum was more fully mobilized, it was quite clear the resection will be necessary. The mesentery of the ileum was incised with electrocautery and sequentially secured with hemostats and vascular pedicle secured with 0 silk ties. Approximately 1.5 feet from the ileocecal valve proper, the small bowel was considered viable and appropriate for anastomosis and was transected with the ANJEL stapling device. The preservation of the ileum was deemed reasonable if possible and approximately 6 to 8 cm from the ileocecal valve, this bowel was transected as well. Photographs were taken. Plans were then made for an end-to-end enteroenterostomy, however, not noted previously, but nevertheless present upon palpation was a metastatic nodule at the junction of the ileum and the cecum. Most likely a primary anastomosis of the small bowel would result in obstruction due to progression of this peritoneal nodule. On that basis, the remnant of the ileum was mobilized at its mesentery, secured with hemostats and secured with 0 silk ties. A ANJEL 75 mm stapling device was used to transect the cecum, and the cecum and ileum and attendant nodule were passed for pathology. The staple line of the cecum was oversewn with interrupted 3-0 silk suture. Electronically Signed By: KETURAH SAVAGE MD 05/14/19 1906 PATIENT NAME: MARIA ELENA CORBIN OPERATIVE REPORT DATE OF : 62 REPORT #: [id number] PHYSICIAN: KETURAH SAVAGE MD PCP: [facility] REPORT IS CONFIDENTIAL AND NOT TO BE RELEASED WITHOUT AUTHORIZATION [address] [address] Signed An end-to-side ileo right colonic anastomosis was then undertaken in a 2-layer technique of interrupted 3-0 silk suture in the serosal layer and interrupted 3-0 Vicryl in the mucosal layer. The mesenteric defect was secured with interrupted 3-0 silk ties to avoid internal herniation. Irrigation was undertaken more fully in isolating laparotomy packs were removed. A Bookwalter retractor had been used at the time of the anastomosis. The small bowel was then run from the ligament of Treitz to the terminal ileum gently passing the succus entericus through the anastomosis confirming that the bowel obstruction has resolved. There was no sign of leakage at the anastomosis. Given the patient's marked aversion to nasogastric tube intubation and likely with need of gastrointestinal decompression and possible need for enteral nutrition as deemed advisable to replace a G-tube. The stomach was dissected free from the upper abdominal wall in the tract of the prior PEG tube was dissected free. The defect in the stomach was in the greater curve of the antrum. A pursestring suture of 0 silk suture was placed and around the previous G-tube site. The previous gastrostomy access site was incised with electrocautery coring out the scar from the past. A 20-Somali HAROON gastrostomy tube was passed through the abdominal wall. The balloon tested and then inserted into the defect of the gastrotomy. The silk suture was secured and the stomach was then secured to the anterior abdominal wall after inflating the balloon 5 mL with saline. Flushing of the tube showed good function. No sign of leakage or other problems. Irrigation was undertaken more fully and the abdomen examined for hemostasis. There was good hemostasis. Notably not mentioned previously was a stub of remnant of the appendix, which had been excised prior to actual cecal resection. Likely, she had incomplete appendectomy performed in the distant past. The pelvis does have notable carpet-like nodularity of the peritoneum and future probability of obstruction is considered high. Through a separate stab incision of a right lower quadrant, a 7 mm flat Aurelio drain was placed. The patient was then closed midline abdominal incision with running bidirectional #1 PDS suture. Subcutaneous tissue irrigated and skin closed with running subcuticular 3-0 Vicryl. Steri-Strips were applied as were gauze dressings as appropriate and ultimately a silver sponge dressing. The drain was attached to bulb suction. The patient tolerated procedure well. Blood loss was at least 250 mL. Sponge, needle, and instrument counts were reported as correct x3. The operation was prolonged, complicated, and difficult lasting more than 4 hours. Keturah Savage MD Electronically Signed By: KETURAH SAVAGE MD 05/14/19 1906 PATIENT NAME: MARIA ELENA CORBIN OPERATIVE REPORT DATE OF : 62 REPORT #: [id number] PHYSICIAN: KETURAH SAVAGE MD PCP: [facility] REPORT IS CONFIDENTIAL AND NOT TO BE RELEASED WITHOUT AUTHORIZATION [address] [address] Signed /JE /[id number] cc: MD Epifanio Rice MD [facility] Sagar Hassan MD Copies: RADHA COWART MD, ROBERT C MD [facility] SAGAR HASSAN MD ~ Electronically Signed By: KETURAH SAVAGE MD 05/14/19 1906 PATIENT NAME: MARIA ELENA CORBIN OPERATIVE REPORT DATE OF : 62 REPORT #: [id number] PHYSICIAN: KETURAH SAVAGE MD PCP: [facility] REPORT IS CONFIDENTIAL AND NOT TO BE RELEASED WITHOUT AUTHORIZATION
--- NOTE | 2019-05-14 20:00 | NUR ---
RECEIVED REPORT AT 1900, FOUND PT IN BED AWAKE. PT ASKED AGAIN FOR PAIN MEDICATION EVEN THOUGH SHE JUST RECEIVED SOME BY DAY RN. TALKED TO PT ABOUT PAIN MANAGEMENT AND ORDER OF PAIN MEDICATIONS AVAILABLE.
--- NOTE | 2019-05-14 22:00 | NUR ---
HR IS IN THE LOW 100'S -120'S AT TIMES. PAIN IS WELL CONTROLLED AT THIS TIME. OTHER V/S ARE WDL, URINE OUTPUT SO FAR IS WDL, ALL LOBES ARE CLEAR, PT IS AAOX4, ABD SOUNDS ARE ABSENT AT THIS TIME, ABD IS SOFT BUT TENDER TO TOUCH, ABD DRESSINGS ARE C/D/I, DAVONTE-DRAIN OUTPUT IS SEROUSANG. IN COLOR. OVERALL STRENGTH IS +5, NO PERIPHERAL EDEMA NOTED.
--- NOTE | 2019-05-14 23:24 | NUR ---
LAST POST OP V/S TAKEN PER PRIMARY RN REQUEST. T-BAG AND DAVONTE EMPTIED AND RECORDED. HEATING PAD PLACED PER PATIENT'S REQUEST AND APPROVED BY THE PRIMARY RN. ICE AND ICE WATER PROVIDED.
--- NOTE | 2019-05-15 00:03 | NUR ---
PAIN IS 7/10, PRN TORADOL WAS GIVEN. NO NEW CONCERNS NOTED.
--- NOTE | 2019-05-15 02:20 | NUR ---
PT AT THIS TIME SEEMS WELL CONTROLLED. ABD SOUNDS ARE HYPOACTIVE AT THIS TIME. PT STILL DENIES PASSING FLATUS. ABD IS SOFT BUT TENDER TO TOUCH. NO OTHER CHANGES WERE NOTED WITH SECOND ASSESSMENT. WILL CONTINUE TO MONITOR. V/S ARE WDL, URINE OUTPUT IS ADEQUATE.
--- NOTE | 2019-05-15 02:35 | NUR ---
V/S AND I&O TAKEN AND CHARTED. CHECKED HEATING PAD AND PATIENT REPOSITIONED.
--- NOTE | 2019-05-15 04:05 | NUR ---
CALL LIGHT ANSWERED. pt C/O 08/23 PAIN IN ABDOMEN. PRN PAIN MEDICATION ADMINISTERED. IV ANTIBIOTIC COMPLETE. IVF INFUSING WNL ORDERED. CALL LIGHT IN REACH. NO ADDITIONAL REQUESTS.
--- NOTE | 2019-05-15 05:17 | NUR ---
AT START OF SHIFT PAIN MANAGEMENT WAS AN ISSUE BUT HAS SINCE BEEN RESOLVED. ABD SOUNDS WERE ABSENT AT THAT TIME WELL. G-TUBE BAG WAS APPLIED AND HAS BEEN DRAINING GREEN FLUID. ABD IS SOFT TO TOUCH BUT TENDER, ABD DRESSINGS ARE C/D/I. DAVONTE-DRAIN HAS SEROUSANG. OUTPUT, ALL LOBES ARE CLEAR, NO PERIPHERAL EDEMA NOTED, PT AAOX4, URINE OUTPUT HAS BEEN ADEQUATE SO FAR.
--- NOTE | 2019-05-15 07:50 | NUR ---
PATIENT RESTING IN BED. ICE AND ICE WATER GIVEN. CALL LIGHT WITHIN REACH. NO OTHER NEEDS AT THIS TIME
--- NOTE | 2019-05-15 07:56 | NUR ---
pt in bed, awake, alert and oriented. chery catheter drains clear yellow urine, hit pack is aoolied for comfort. pt cooperative adn involved in care. will be back to assess.
--- NOTE | 2019-05-15 09:48 | NUR ---
PATIENT RESTING IN BED. VITAL SIGNS AND I&O DONE. CALL LIGHT WITHIN REACH. NO OTHER NEEDS AT THIS TIME
--- NOTE | 2019-05-15 09:56 | NUR ---
pt resting in bed request pain medications for 6/10 pain, pt given tordol iv 30mg at this time prn. chery cath removed by fredrick barragan.
--- NOTE | 2019-05-15 10:22 | NUR ---
PATIENT RESTING IN BED. BEDBATH DONE. GOWN CHANGED. PATIENT SITS DOWN ON THE RECLINER. ONE PERSON ASSISTING. LINENS CHANGED. CLEAN UP TABLES. CALL LIGHT WITHIN REACH. NO OTHER NEEDS AT THIS TIME
--- NOTE | 2019-05-15 11:00 | NUR ---
SSpoke with pt. She denies needs or concerns at this time. Cont. to plan on dc to home with her spouse when discharged.
--- NOTE | 2019-05-15 12:43 | NUR ---
PULL OUT ALTEPLASE, GOOD BLOOD RETURN. FLUSHED WITH 10 ML OF NS WITHOUT ANY DIFFICULTIES. PT TOLERATED WELL. PAIN MANAGING WITH PRN MED, SEE MAR. PT UP IN HER RECLINER. ALERT, IN A GOOD MOOD.
--- NOTE | 2019-05-15 14:02 | NUR ---
PATIENT SITTING UP IN CHAIR. VITAL SIGNS AND I&O DONE. PATIENT GOES TO USE THE BATHROOM. PATIENT BACKS TO BED. ONE PERSON ASSISTING. CALL LIGHT WITHIN REACH. NO OTHER NEEDS AT THIS TIME
--- NOTE | 2019-05-15 14:20 | NUR ---
PT ALERT, ORIENTED AND SITTING IN CHAIR READING. PT IMMEDIATELY SAID SHE FEELS SO MUCH BETTER FOLLOWING SURGERY. LOTS OF ANXIETY LEADING UP TO SURGERY. PT COMMENTED THAT SHE FEELS SHE HAS TURNED A CORNER. DIFFICULT ON HER AND HER FAMILY NOT BEING ABLE TO BE TOGETHER, BUT ALL SEEM TO BE COPING. PT REQUESTED PRAYER AND DESIRES A VISIT AGAIN
--- NOTE | 2019-05-15 16:15 | NUR ---
CALL LIGHT ANSWERED. PATIENT RESTING IN BED. PATIENT GOES TO USE THE BATHROOM. PATIENT BACKS TO BED. ONE PERSON ASSISTING. CALL LIGHT WITHIN REACH. NO OTHER NEEDS AT THIS TIME
--- NOTE | 2019-05-15 16:40 | NUR ---
PT DRINKS CHICKEN BROUTH (CLEAR DIET FOR COMFORT). PLEASANT, COOPERATIVE, THANKFUL. PAIN IS UNDER CONTROL. DONE WITH ASSESSMENT. DRESSING IS DRY CLEAN, INTACT. G TUBE DRAINS GREEN DISCHARGE, GP DRAIN HAS SEROSANGUINEOUS DRAINAGE. BOWEL SOUNDS PRESENT. PT WILLING TO AMBULATE LATER IN THE EVENING. CALL LIGHT IN REACH. NO NEEDS AT THE MOMENT.
--- NOTE | 2019-05-15 17:26 | NUR ---
PATIENT SITTING UP IN BED. VITAL SIGNS AND I&O DONE. CALL LIGHT WITHIN REACH. NO OTHER NEEDS AT THIS TIME
--- NOTE | 2019-05-15 18:59 | NUR ---
PT ALERT, ORIENTED, PLEASANT. PAIN WAS UNDER CONTROL TODAY. PT WAS UP IN A CHAIR, WILLING TO AMBULATE LATER IN THE EVENING. DRESSING IS CLEAN, DRY, INTACT. G TUBE DRAINS GREEN DRAINAGE, GP DRAIN HAS SEROSANGUENIOUSE DRAINGAE. NO NAUSEA. HAD A CHICKEN BROUTH (PER MD FOR COMFORT). TELLO IS OUT, WAS ABLE TO VOID WITHOUT DIFFICCULTIES.
--- NOTE | 2019-05-15 19:20 | NUR ---
BEDSIDE REPORT RECEIVED FROM RNS AGUILA. pt RESTING IN BED. IVF INFUSING PORT WNL. RNS IN ROOM TO ADMINISTER PAIN MEDICATION. CALL LIGHT IN REACH.
--- NOTE | 2019-05-15 21:40 | NUR ---
pt ASSESSMENT COMPLETE. pt RATES PAIN 6/10 IN ABDOMEN. BOWEL TONES ACTIVE X 4. ABD SOFT, TENDER. DRESSINGS CDI. DAVONTE WITH SCANT AMT SS DRAINGE. G TUBE IN PLACE, SCANT DRAINAGE. PRN OFIRMEV ADMINISTERED FOR PAIN CONTROL. PORT WITH GOOD BLOOD RETURN. IV ANTIBIOTIC INFUSING WNL ORDERED. CALL LIGHT IN REACH. NO ADDITIONAL REQUESTS.
--- NOTE | 2019-05-15 22:52 | NUR ---
CALL LIGHT ANSWERED. PRN PAIN MEDICATION ADMINISTERED. pt RESTING IN BED, RATES PAIN 8/10 IN ABDOMEN. REQUESTING TO WALK IN ABOUT TEN MINUTES. CALL LIGHT IN REACH.
--- NOTE | 2019-05-15 23:00 | NUR ---
ANSWERED CALL LIGHT. SBA TO THE BATHROOM. ACCOMPANIED PATIENT WALK AROUND THE HALLWAY X2. PATIENT IS BACK IN BED. SCD ON. CALL LIGHT IN REACH.
--- NOTE | 2019-05-15 23:35 | NUR ---
pt AMBULTING IN HALLWAY WITH NUSRAT PRESSLEY. GAIT STEADY.
--- NOTE | 2019-05-16 02:04 | NUR ---
CALL LIGHT ANSWERED. SBA TO RESTROOM FOR VOID AND BACK TO BED. DRESSING CDI. pt RATES PAIN 8/10 IN ABDOMEN. PRN MEDICATION ADMINISTERED. IV ANTIBIOTIC INFUSING WNL ORDERED. CALL LIGHT IN REACH. LIGHTS OFF IN ROOM. SCDS ON. ICE WATER PROVIDED FOR COMFORT.
--- NOTE | 2019-05-16 05:11 | NUR ---
CALL LIGHT ANSWERED. SBA TO RESTROOM FOR VOID AND BACK TO BED. DAVONTE DRAIN EMPTIED 20 MLS SS FLUID, GTUBE 425 MLS GREEN DRAINAGE. DRESSINGS CDI. BOWEL TONES ACTIVE, ABD SOFT, TENDER W PALPATION. pt RATES PAIN 7/10 PRN PAIN MEDICATIONS ADMINISTERED. VSS. pt HAS CALL LIGHT IN REACH.
--- NOTE | 2019-05-16 06:28 | NUR ---
PATIENT IS UP AND WALKED AROUND THE HALLWAY X3. PATIENT WENT TO THE BATHROOM. PATIENT IS BACK IN BED.
--- NOTE | 2019-05-16 07:24 | NUR ---
PT ALERT AND PARTICAPATORY DURING BEDSIDE REPORT. RESTING IN BED AT THIS TIME DENIES IMMEDIATE NEED
--- NOTE | 2019-05-16 08:53 | NUR ---
dr aguilar in to see pt. g-tube capped per orders, clear liquid tray provided
--- NOTE | 2019-05-16 10:14 | NUR ---
Call from Serenity from [facility]. Requested update on discharge. Also requested progress notes. Informed I will notify Ur and have them send. She wanted to know if pt has an advance directive or Polst. Notifed it is documented, no. I will speak with pt today and ask if she would like to complete a polst.
--- NOTE | 2019-05-16 10:20 | NUR ---
PATIENT SITTING UP IN BED SLOWLY WORKING ON CLEAR LIQUIDS. PATIENT SMILING STATING THAT SHE HAS RECIEVED THE BEST CARE HERE. PATIENT WASHED HANDS AND FACE. PATIENT REFUSED BATH STATES THAT SHE HAD ONE YESTERDAY. PATIENT WOULD LIKE TO BRUSH TEETH AFTER SHE IS DONE WITH HER CLEAR LIQUIDS. CALL BUTTON IN REACH. FRESH ICE WATER GIVEN. NO OTHER NEEDS AT THIS TIME.
--- NOTE | 2019-05-16 10:29 | NUR ---
PT DENIES ANY NAUSEA OR DISCOMFORTS R/T CLEAR LIQUID TRAY
--- NOTE | 2019-05-16 11:10 | NUR ---
Visted with Aura. States her pain is much better, pain she has had for 2 years is gone. Updated her insurance called and she states she just visited with them. Asked if she has a polst, as her insurance had wanted to know. She denies and states she does not want to complete. States he knows her wishes. Discussed she may go home on Tuesday. She is excited about this. States she is taking it as a postive new cancer area were found, as she can begin treatment. Denies needs.
--- NOTE | 2019-05-16 12:51 | NUR ---
PT CONTINUES WITHOUT C/O. DISCUSSED AMBULATION AND NEED FOR IT. PT STATES SHE WALKS OUTSIDE OF THE ROOM ON NOC SHIFT THEN INSIDE THE ROOM DURING DAYS FOR HER SAFETY. SHE AMBULATED SEVERAL TIMES LAST NIGHT AND EARLY A.M. FULL LIQUIDS CONSERTATIVELY ORDERED FOR NOON MEAL.
--- NOTE | 2019-05-16 13:00 | NUR ---
CALL LIGHT ANSWERED. PATIENT RESTING IN BED. PATIENT GOES TO USE THE BATHROOM. ONE PERSON ASSISTING. CALL LIGHT WITHIN REACH. NO OTHER NEEDS AT THIS TIME
--- NOTE | 2019-05-16 13:54 | NUR ---
PT SITTNG UP IN BED, WATCHING TV AND TEXTING ON PHONE. PT IMPROVED ENOUGH TODAY TO HAVE DIET ADVANCED, GI TRACT WORKING MUCH BETTER. PT IS FEELING GREATLY IMPROVED AND FEELS THAT HER CREATOR HAS HEARD HER PRAYERS FOR HELP AND SHE IS FEELING BLESSED. PRAYED A PRAYER OF GRATITUDE WITH PT AND SHE REQUESTED I CONTACT HER MOTHER-WHICH I DID.
--- NOTE | 2019-05-16 17:13 | NUR ---
PATIENT SITTING STRAIGHT UP IN BED EATING DINNER SLOWLY. FRESH ICE WATER GIVEN. CALL BUTTON IN REACH. NO OTHER NEEDS AT THIS TIME.
--- NOTE | 2019-05-16 17:35 | NUR ---
PT DOES WELL WITH FULL LIQUID TRAY NO N/V. PT REPORTS SHE HAS PASSED SOME GAS TODAY WELL. PAIN APPEARS WELL CONTROLLED WITH OXY Q4. PT HAS READING MATERIALS AND COMPUTER IN HER ROOM SELF ENTERTAINING DENIES NEEDS AT THIS TIME
--- NOTE | 2019-05-16 19:29 | NUR ---
pt is up on her recliner. alert, oriented. had bm today. D5LR running cont, according to report pt diet was advanced to full liquids and pt tolerated it well. Will be back for assessment.
--- NOTE | 2019-05-16 21:05 | NUR ---
PT ALERT, ORIENTED, PLEASANT AND COOPERATIVE WITH CARES. STATED HER PAIN 7/10. SEE MAR FOR MEDICATIONS ADMINISTRATION. FLUSHED PORT WITHOUT ANY DIFFICULTIES WITH 10 ML OF NS, GOOD BLOOD RETURN. ABDOMINAL DRESSINGS ARE INTACT, HAS A SCANT AMMOUNT OF DRAINAGE. BOWEL SOUNDS PRESENT, ABDOMINAL TENDER. DAVONTE DRAIN HAS S/S DRAINAGE. LUNGS CLEAR. DONE WITH ASSESSMENT. WILL BE BACK TO [facility] FOR PAIN.
--- NOTE | 2019-05-16 22:00 | NUR ---
IN pt ROOM DISCUSSING PLAN OF CARE WITH pt. UPDATED ON BMS THIS SHIFT, NEW DIET ORDERS BY MD. pt RESTING IN BED. NO REQUESTS AT THIS TIME.
--- NOTE | 2019-05-16 23:03 | NUR ---
PT REPORTED PAIN 08/23, SEE MAR FOR MEDICATION ADMINISTRATION. AMBULATED TO THE BATHROOM. VOIDED WITHOUT DIFFICULTIES. NO DIZZINESS. PT IS EXTED ABOUT ADVANCING HER DIET TO GENERAL. COOPERATIVE.
--- NOTE | 2019-05-16 23:21 | NUR ---
PT AMBULATED. MADE TWO SMALL LOOPS AROUND THE UNIT. STATED "IT WAS EASY AND NICE". BACK TO BED. LOOKS AT THE MENU TO ORDER BREAKFAST.
--- NOTE | 2019-05-17 01:28 | NUR ---
PT REPORTED PAIN 08/23. SEE MAR FOR MEDICATION ADMINISTRATION.
--- NOTE | 2019-05-17 01:46 | NUR ---
pt ambulated to the bathroom. good output of yellow urine and one more bm. pt back to bed. call light in reach, no needs at the moment.
--- NOTE | 2019-05-17 03:54 | NUR ---
IV PUMP ALARMING. NEW BAG IVF INFUSING PORT WNL. pt RESTING IN BED, AWAKENS, DROWSY. DENIES ANY NEEDS AT THIS TIME. SCDS ON.
--- NOTE | 2019-05-17 06:18 | NUR ---
PT DIET ADVANCED TO REGULAR. PT HAD 3 BMS TONIGHT. VOIDED. AMBULATED AROUND THE UNIT. STATED "IT WAS EASY". DRESSING IS DRY, CLEAN, INTACT. PAIN MANAGEMENT SEE MAR.
--- NOTE | 2019-05-17 07:27 | NUR ---
REPORT RECEIVED FROM DANIKA LANDRUM. PT RESTING IN BED AND REPORTS 6/10 PAIN STATING "I JUST TOOK SOME PAIN MEDICITON." PT DENIES NEED FOR ADDITIONAL PAIN MEDICATION AT THIS TIME. DRESSING INTACT, DAVONTE DRAIN SHOWS MINIMAL SERIOUS ANGUINOUS DRAINAGE, G-TUBE IN TACT. NO ADDITIONAL REQUESTS OR COMPLAINTS AT THIS TIME. CALL LIGHT WITHIN REACH.
--- NOTE | 2019-05-17 09:18 | NUR ---
MORNING ASSESSMENT DUE. PT RESTING IN BED, FINSHED WITH BREAKFAST, ABLE TO EAT 75% OF SOLID FOOD. PT REPORTS 07/24 "SURGICAL SITE" PAIN. PT REQUESTS "JUST ONE DOSE" OF DILAUDID (SEE MAR FOR MEDICATION GIVEN). MEDICATION GIVEN. PORT ASSESSED, WNL. BRISK BLOOD RETURN NOTED. PORT DUE FOR REACCESS AND DRESSING CHANGE THIS SHIFT, WILL CONSULT MD. WATER REFILLED. VITALS AND I/Os RECORDED. NO ADDITIONAL REQUESTS OR COMPLAINTS AT THIS TIME. CALL LIGHT WITHIN REACH. PT ANTICIPATING DISCHRAGE TOMORROW, REQUESTS MANAGER BUSINESS CONTINUITY DISCHARGE.
[2019-05-17] MEDS ORDERED: NORCO 7.5-3251 EACH PO (09:56)
--- NOTE | 2019-05-17 10:20 | NUR ---
PT CALL LIGHT ON. PT REQUESTS TO GET UP TO SHOWER BEFORE DISCHARGE. PORT A CATH ASSESSED, WNL. BRISK BLOOD RETURN NOTED. PORT FLUSHED AND HEPARIN LOCKED PER PROTOCOL. PORT DEACCESSED PER PROTOCOL. BANDAID APPLIED. PT EDUCATION DONE REGARDING FLUSHING G-TUBE WITH TAP WATER. SUPPLIES PROVIDED. PT DEMONSTRATES UNDERSTANDING AND FLUSHES G-TUE WITH 60ML TAP WATER IN FRONT OF THIS RN. PT REPORTS 6/10 PAIN THAT "WAS BETTER WITH THE DILAUDID BUT NOW IS COMING BACK." SEE MAR FOR MEDICATION GIVEN. PT UP TO SHOWER AND DRESS. PT IS STEADY ON FEET WITH SBA. DEMONSTRATES USE OF CALL LIGHT. NO ADDIITONAL REQUESTS OR COMPLAINTS AT THIS TIME.
--- NOTE | 2019-05-17 11:00 | NUR ---
Spoke with Aura. She denies needs. Showerd, dressed, and ready to go home. Wants to know if she should call her . Informed I will call her nurse as she has not recieved discharge as of yet.
[2019-05-17] MEDS ORDERED: ONDANSETRON ODT4 MG PO (11:23)
--- NOTE | 2019-05-17 12:10 | NUR ---
PT READY FOR DISCHARGE. PHARMACIST IN TO VIST WITH PT. PT VERBALIZES UNDERSTANDING OF MEDICATIONS AND THEIR SIDE EFFECTS AND STATES HER QUESTIONS HAVE BEEN ANSWERED. VITALS TAKEN. PT REQUESTS ZOFRAN. CONSULTED. ONE TIME DOES GIVEN (SEE MAR). RX FOR HOME ZOFRAN GIVEN. DISCHARGE INSTRUCTIONS REVIEWED WITH PT. PT VERBALIZES UNDERSTANDING OF MEDICATIONS, FOLLOW UP APPOITNMENT, AND INSTRCUTIONS INCLUDING LIFTING RESTRICITONS. VITALS TAKEN. PT AWIATING HUSBANDS ARRIVAL. WILL CALL WHEN HE ARRIVES. NO ADDITIONAL REQUESTS OR COMPLAINTS AT THIS TIME. CALL LIGHT WITHIN REACH.
--- NOTE | 2019-05-17 13:15 | NUR ---
went into room to check on patient. to check and see if she had a ride. she say her ride is on the way just has to get tires fixed at [employer]. she states she has no needs at this time. patient will call when ride is on their way. call light with in reach. no further needs at this time.
--- NOTE | 2019-05-17 13:35 | NUR ---
PT CALL LIGHT ON. PT STATES HER HAS ARRIVED. PT WHEELED FROM MED/SURG BY OFFICE MACHINERY OR EQUIPMENT INSTALLER. NO ADDITIONAL REQUESTS OR COMPLAINTS AT THIS TIME. CALL LIGHT WITHIN REACH.
--- NOTE | 2019-05-17 14:19 | NUR ---
PT SITTING IN CHAIR, DRESSED AND WAITING FOR HER FERNANDO TO ARRIVE FOR DC. PT SHARED HER SPIRITUAL JOURNEY SHE HAS BEEN ON SINCE HER ARRIVAL. PT DID ADMIT THAT SHE WAS ANGRY AND FELT FORGOTTEN BY HER CREATOR, BUT NOW REALIZES HE WAS THERE ALL THE TIME AND FEELS "HUMBLED"IN HER WORDS AND SO GRATEFUL FOR THE BLESSING SHE HAS RECEIVED. QUITE A WEEK FOR HER-SHE REQUESTED WE PRAY. A PRAYER OF GRATITUDE
== END 2019-05-17 13:35 | disposition home or self-care (01) | DRG 327 ==
LOC: ED 16:28 → MS 21:03
PROVIDERS: Surgery; ADMIT Internal Medicine
PROC: 0DBB0ZZ Excision of Ileum, Open Approach (ICD-10-PCS; 2019-05-14)
PROC: 0WBH0ZX Excision of Retroperitoneum, Open Approach, Diagnostic (ICD-10-PCS; 2019-05-14)
PROC: 0DBH0ZZ Excision of Cecum, Open Approach (ICD-10-PCS; principal; 2019-05-14 13:00)
PROC: 0D9600Z Drainage of Stomach with Drainage Device, Open Approach (ICD-10-PCS; 2019-05-14 13:00)
DX: C78.6 Secondary malignant neoplasm of retroperitoneum and peritoneum (principal); F11.20 Opioid dependence, uncomplicated; C78.7 Secondary malignant neoplasm of liver and intrahepatic bile duct; F41.9 Anxiety disorder, unspecified; Z85.09 Personal history of malignant neoplasm of other digestive organs; Z87.891 Personal history of nicotine dependence; Z79.899 Other long term (current) drug therapy; Z79.890 Hormone replacement therapy; Z79.891 Long term (current) use of opiate analgesic; Z88.2 Allergy status to sulfonamides; Z88.1 Allergy status to other antibiotic agents
CPT/HCPCS: 00790; 36415; 74018; 74177; 80048; 80053; 81001; 82150; 82247; 82465; 83615; 83690; 83735; 84100; 84478; 84550; 85025; 85027; 85610; 85651; 85730; 86301; 87088; 93005; 93010; 96361; 96374; 96375; 99285-25; C9113; J0131; J0694; J0780; J1100; J1170; J1650; J1885; J2001; J2060; J2250; J2405; J2704; J2997; J3010; J3475; J3480; J7030; J7060; J7121; Q9967

== ENCOUNTER 2019-06-06 01:14 | Emergency (ER) | payer BC, OTHER ==
[~2019-06-06] VITALS: Ht 162.6 cm; Wt 61.2 kg
--- OUTSIDE RECORDS SUMMARY | ~2019-06-06 | XMS | Encounter Summary ---
Demographics + + + | Address | [address] | | | [place] [address] | + + + | Home Phone | | + + + | Preferred Language | Unknown | + + + | Marital Status | Single | + + + | Mormonism Affiliation | NON | + + + | Race | White | + + + | Ethnic Group | Not or | + + + Author + + + | Author | [facility] | + + + | Organization | [facility] | + + + | Address [...] Team Providers + +------+ + | Care Er Medical Technician Name | Role | Phone | + +------+ + | Valeriy Carmona MD | PCP | | + +------+ + Encounter Details +--------+ + + + + | Date | Type | Department | Care Team | Description | +--------+ + + + + | 03/23/ | Document-Sc | [facility] [address] | [place], | | | 2017 | felicia | [facility] | Epifanio Soler MD [address] | | [address] [place], [place] | [address] | | | | | [address] | [place] [address] | | | | | | [phone] | | | | | | | | +--------+ + + + [...]
--- OUTSIDE RECORDS SUMMARY | ~2019-06-06 | XMS | Encounter Summary ---
Demographics + + + | Address | [address] | | | [place] [address] | + + + | Home Phone | | + + + | Preferred Language | Unknown | + + + | Marital Status | Single | + + + | Anabaptism Affiliation | NON | + + + | Race | White | + + + | Ethnic Group | Not or | + + + Author + + + | Author | [facility] | + + + | Organization | [facility] | + + + | Address [...] Team Providers + +------+ + | Care Electronics Manufacturer Name | Role | Phone | + +------+ + | Tomasa Wagner | PCP | | + +------+ + Reason for Visit + + + | Reason | Comments | + + + | New patient | complex cystic mass | | consultation | | + + + Office Visit - E/M Services (Routine) +--------+--------+ + + + + | Status | Reason | Specialty | Diagnoses / | Referred By | Referred To | | | | | Procedures | Contact | Contact | +--------+--------+ + + + + | Closed | | Obstetrics & | Diagnoses | [facility] | [facility] | | | | Gynecology | Complex | Epic Dept | [address] | | | | | Cystic Mass, | | [address] | | | | | elevated | | [place] | | | | | [id number] per | | Pav[address], [address]th | | | | | appt notes | | floor | | | | | | | [place], [place] | | | | | | | [address] | | | | | | | Phone: | | | | | | | [phone] | | | | | | | Fax: | | | | | | | [phone] | +--------+--------+ + + + + Encounter Details +--------+---------+ + + + | Date | Type | Department | Care Team | Description | +--------+---------+ + + + | 05/21/ | Office | [facility] | Miguel Seymour, | Ovarian cystic mass | | 2015 | Visit | [facility] | [address] | (Primary Dx); | | | | [address] | [address] | Gallbladder cancer | | | | [address] | [place], [place] | (HCC); Abdominal | | | | Pavilion, 7th floor | [address] | pain, bilateral | | | | [place], [place] | [phone] | upper quadrant; | | | | [address] | | Pelvic mass | | | | [phone] | | | +--------+---------+ + + + [...] + + + | Blood Pressure | 111/72 | 05/21/2014 3:34 PM | | | | | PDT | | + + + + + | Pulse | 78 | 05/21/2014 3:34 PM | | | | | PDT | | + + + + + | Temperature | 37.1 C (98.7 F) | 05/21/2014 3:34 PM | | | | | PDT | | + + + + + | Respiratory Rate | - | - | | + + + + + | Oxygen Saturation | 98% | 05/21/2014 3:34 PM | | | | | PDT | | + + + + + | Inhaled Oxygen | - | - | | | Concentration | | | | + + + + + | Weight | 84 kg (185 lb 1.6 | 05/21/2014 3:34 PM | | | | oz) | PDT | | + + + + + | Height | 162.6 cm (5' 4") | 05/21/2014 3:34 PM | | | | | PDT | | + + + + + | Body Mass Index | 31.77 | 05/21/2014 3:34 PM | | | | | PDT | | + + + + + documented in this encounter Patient Instructions Patient Instructions Carlota Galindo MD - 05/21/2014 4:37 PM PDTThank you for maday verde today. We will call you with the results of the endometrial biopsy (sample of the lining of your u terus) as well as the CA-125 level (blood test). We have put in a request to [facility] to have your CT scan done there. We will then get t he images sent here for our review. Please call us if you notice fevers, chills, increasing abdominal pain, or other symptoms t hat concern you. documented in this encounter Progress Notes Candie Lazcano MA - 05/21/2014 4:44 PM PDTI performed venipuncture on pt without complic ation, pt tolerated well. Labs sent per orders. Two pt. Identifiers used per protocol. de Jeff Grady MD - 05/21/2014 3:22 PM PDTFormatting of this note might be different from the [facility] NEW PATIENT CONSULTATION 05/21/2014 REFERRING PROVIDER: Valeriy Carmona HPI: Pt is a 53 year old with a recent diagnosis of left adnexal mass incidentally noted during routine surveillance of her hx of gallbladder cancer. 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 Lyons in 04/2012. No evidence of residual malignancy w as noted, however 2/8 positive lymph nodes in the gallbladder bed were noted, and extensive angiolymphatic invasion noted but margins were negative. She then underwent neoadjuvant chemotherapy with gemcitabine 1000 mg/m2 (day 1, 8) and cape citabine 750 mg/m2(BID x 14 days) for 4 cycles (lasting 21 days each). Following the four cy cles, then underwent capecitabine 665 mg/m2 BID concurrent with radiation therapy-5040 katie total (28 rounds) 09/13/12-10/23/12. Aura underwent a surveillance CT on 03/18/2014 which noted a left ovarian cyst measuring 5 .5 x 5.8 x 2.6 cm. She then underwent a ultrasound which noted "the left ovary is abnormal. It is essentially replaced by complex cystic mass. This mass has multiple thick irregular se ptations." Aura notes that she had felt some LLQ abdominal pain just prior to the CT scan-which she describes as a crampy feeling. About 2-3 weeks later, started having more significant pain- over epigastric region as well as in the lower abdomen. The pain feels like it is gradually worsening-as a constant overall soreness, and occasional stabbing pain. No change in pain wi th positions or activities, with certain foods or time of day. Notes more towards constipati on, but takes stool softener daily and has daily BMs without bleeding or straining. No urina ry symptoms. Did note hot flashes following the chemotherapy, which have improved greatly, a bout twice daily. Has occasional sleeplessness and night sweats as well, but much improved. No chest pain, SOB, numbness/tingling or weight changes. Sexually active, with no dyspareuni a. Some chronic back/knee pain, takes 1 norco at night for this, though now using it as well to cover her abdominal pain. Had had periods prior to chemotherapy, and then not since that time. Last vaginal bleeding had been May of 2012, but then reports a 1 day history of light vaginal bleeding on 04/07. Not enough to even need a pad. 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 OMEGA-3 FATTY ACIDS-FISH OIL 340 MG-1,000 MG CAPSULE Take by mouth. HYDROCODONE 5 MG-ACETAMINOPHEN 325 MG TABLET Take 1 tablet by mouth every four hours as nee ded. Not to exceed 10 tablets per any 24 hour period. (Not to exceed 3250 mg of acetaminophe n from all products per 24 hour period.) PROBIOTIC ORAL Take by mouth. MULTI VITAMIN ORAL Take by mouth once daily. ALLERGIES: Allergies Allergen Reactions Sulfacetamide Sodium Hives FAMILY HISTORY: Niece with thyroid cancer. No other history of cancers, specifically including uterine, fal lopian, ovarian, breast or colon. 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 Patient currently lives with: Activity level: occasional swimming classes, able to do ADL without issue HABITS: Tobacco: former smoker, from ages [age], 10 cigarettes per day ETOH:1-2 glasses a month of wine Illicit substances: denies REVIEW OF SYSTEMS: Constitutional: negative HEENT: negative Cardiovascular: negative Respiratory: negative Gastrointestinal: +abdominal pain, occasional constipation Genitourinary: +hot flashes Musculoskeletal: negative Integumentary: negative Neurologic: negative Psychiatric: +depression, +trouble sleeping, +anxiety PHYSICAL EXAM: BP 111/72 | Pulse 78 | Temp (Src) 37.1 C (98.7 F) (Oral) | Ht 1.626 m (5' 4") | Wt 83.9 61 kg (185 lb 1.6 oz) | SpO2 98% | BMI 31.76 kg/(m^2) General: pleasant female in NAD HEENT:normocephalic, atraumatic. Sclera anicteric, posterior oropharynx clear Cardiovascular: RRR, no murmurs, gallops, or rubs Respiratory: CTA bilateral anterior and posterior harrell GI: abdomen soft, mild tenderness in epigastric region. Well healed incision below the righ t costal margin and midline. Lower abdomen soft, non tender. Extremities: normal ROM in the bilateral upper and lower extremities, no LE edema bilateral ly Skin:no rashes or lesions Lymphatics: no cervical, supraclavicular, or inguinal adenopathy : normal appearing external genitalia. Vagina appears well estrogenized. Cervix without a bnormalities, but appears slightly stenotic. Uterus anteverted, with slight adnexal fullness appreciated on left, no adnexal fullness appreciated on right side. Rectovaginal exam witho ut nodularity or other abnormality. Procedure: Endometrial biopsy Patient was positioned in low lithotomy position after verbal consent was obtained. A specu lum was placed, and the cervix cleansed with betadine. Hurricaine numbing spray was applied. A tenaculum was placed on the anterior lip of the cervix. OUTSIDE RADIOLOGIC AND LABORATORY DATA: 03/18/2014: CT abd/pelvis with contrast Findings: Lung bases: left sided fat containing diaphragmatic hernia. This is unchanged. The lung bas es are otherwise clear. Liver: Postsurgical changes throughout the gallbaladder fossa. The liver is otherwise unrem arkable. Gallbladder: The gallbladder is surgically absent. The intrahepatic and extrahepatic biliar y ducts are appropriate given the postsurgical state. Spleen: The spleen is unremarkable. There is no splenomegaly. The spleen contains one calci fication indicating prior granulomatous disease. Pancreas: The pancreas is small but otherwise unremarkable. No dilatation of the pancreatic duct. Adrenals: There may have been partial right adrenalectomy. No left adrenal nodules. Kidneys: The kidneys are symmetrically enhancing. There are no focal renal lesions. There i s no nephrolithiasis. There is no obstructive uropathy. Bowel: There is no evidence for gastrointestinal tract obstruction. There is no evidence fo r appendicitis. There is diverticulosis which predominates in the sigmoid colon. There is no evidence for active diverticulitis. Vasculature and lymph nodes: No aneurysmal dilatation of the abdominal aorta. No abdominal or pelvic lymphadenopathy. Bladder: Unremarkable. Uterus and adnexa: The uterus and adnexa are unremarkable. There is a probable follicle in the left ovary. This is a new development. Please correlate with the patient's menstrual sta tus. Bones: there are no acute osseous abnormalities. There are no lytic or blastic bone lesions . Other: there is a small amount of free fluid dependently in the pelvis. There is no free ai r. Impression: Probable follicle newly developed in the left ovary. Small volume of pleural fluid in the p jorden. Both of these may be physiologic if this patient is not postmenopausal. Please correl ate with patient's menstrual status. 05/08/2014: US: Findings: Uterus: Uterus is anteverted. The myometrium is unremarkable. The endometrium is homogenous ly hyperechoic and measures 7.7 mm. The uterus measures 7.2 x 3.2 x 3.6. The uterine volume is 41.7. Ovaries and adnexa: the right ovary is visualized transabdominally is normal. The right ova ry measures 2.3 x 1.9 x 1.7 cm. The right ovarian volume is 3.8. The left ovary is abnormal. It is essentially replaced by complex cystic mass. This mass has multiple thick irregular s eptations. The ovary and mass and spectral doppler flow are identified in the left ovary. Th ere is a moderate amount of mildly complex free fluid in the pelvis. Impression: Findings of a complex cystic mass in the left adnexa are concerning for malignancy. Given t hat this patient is postmenopausal, a hemorrhagic cyst, which typically is in the differenti al is felt to be very unlikely. Moderate amount of complex free fluid. CA-125: 05/08/15: 101 ASSESSMENT: Aura Upton is a 53 y.o. with a history of gallbladder adenocarcinoma with lef t adnexal mass and abdominal pain. Differential includes benign ovarian cyst, versus primary malignancy of the ovary, versus metastatic disease-particularly recurrent gallbladder disea se. Patient's history is concerning, particularly given her increasing upper abdominal pain, and elevation in CA-125. PLAN: -repeat CA-125 today -await result of endometrial biopsy. -Discussed that repeat imaging would be helpful to determine if there has been interval maranda nges, and if a new lesion was noted, that this could be potentially biopsied for further cla rity in diagnosis. Aura will obtain a repeat CT in [place]. Patient seen and discussed with Dr. Kandis Galindo MD Obstetrics and Gynecology Resident PGY-4 I saw and evaluated the patient. I agree with the findings and the plan of care as shruthi ramirez in the resident s note. Patt Henderson M.D. Division of Gynecologic Oncology Department of Obstetrics and Gynecology documented in this encounter Plan of Treatment + + +--------+ + + | Name | Type | Priori | Associated Diagnoses | Order Schedule | | | | ty | | | + + +--------+ + + | ROUTINE | Procedures | Routin | Ovarian cystic | Ordered: 05/21/2014 | | VENIPUNCTURE, | | e | mass Gallbladder | | | VENOUS-BACK OFFICE | | | cancer (HCC) | | | | | | Abdominal pain, | | | | | | bilateral upper | | | | | | quadrant | | + + +--------+ + + documented as of this encounter Procedures + +--------+ + + + | Procedure Name | Priori | Date/Time | Associated Diagnosis | Comments | | | ty | | | | + +--------+ + + + | CA 125, SERUM | Routin | 05/21/2014 | Ovarian cystic | Results for this | | | e | 4:44 PM | mass Gallbladder | procedure are in the | | | | PDT | cancer (HCC) | results section. | | | | | Abdominal pain, | | | | | | bilateral upper | | | | | | quadrant | | + +--------+ + + + | SURGICAL PATHOLOGY | Routin | 05/21/2014 | Ovarian cystic | Results for this | | | e | | mass Gallbladder | procedure are in the | | | | | cancer (HCC) | results section. | | | | | Abdominal pain, | | | | | | bilateral upper | | | | | | quadrant | | + +--------+ + + + documented in this encounter Results CA 125, SERUM (05/21/2014 4:44 PM PDT) + +---------+ + + + | Component | Value | Ref Range | Performed | Pathologist | | | | | At | Signature | + +---------+ + + + | CA-125, ROHAN | 225 (H) | <=35 unit/mL | [facility] | | | [facility] | | | | | | [place] | | + +---------+ + + + + + | Specimen | + + | Blood - Blood | + + + + + + + | Performing | Address | City/State/Zipcode | Phone Number | | Organization | | | | + + + + + | [facility] | [address] | [place] [address] | | | [place] | | | | + + + + + SURGICAL PATHOLOGY (05/21/2014) + + + + + + | Component | Value | Ref Range | Performed | Pathologist | | | | | At | Signature | + + + + + + | SURGICAL | SOURCE OF SPECIMEN:[facility] | | [facility] | | | PATHOLOGY | Final Pathologic | | DEPARTMENT | | | | Diagnosis:Endometrium, | | OF | | | | biopsies: - | | PATHOLOGY | | | | Polypoid endocervical | | | | | | transformation zone | | | | | | mucosa - Fragments | | | | | | of endometrial stroma | | | | | | - Negative for | | | | | | hyperplasia, dysplasia | | | | | | or malignancy | | | | | | Case seen by:Yamil | | | | | | Maycol Bear/Surgical | | | | | | Pathology FellowAtiya | | | | | | Cedrick | | | | | | Maycol/PathologistT:05/22/14 | | | | | | /sg Clinical | | | | | | History:The patient is a | | | | | | 53-year-old female with | | | | | | complex cystic mass. | | | | | | Gross | | | | | | Description:Received is | | | | | | 1 specimen in formalin | | | | | | in a container labeled | | | | | | with thepatient's name | | | | | | (initials MM) and | | | | | | medical record # | | | | | | [id number]. Received 2 | | | | | | x1.3 x 0.1 cm in | | | | | | aggregate are multiple | | | | | | friable necrotic | | | | | | gelatinousred-brown | | | | | | tissues. The entire | | | | | | specimen is submitted. | | | | | | Cassette Index:A1, | | | | | | filtered and | | | | | | wrappedKRK/jose My | | | | | | electronic signature | | | | | | indicates that I have | | | | | | personally reviewed | | | | | | alldiagnostic slides, | | | | | | the gross and/or | | | | | | microscopic portion of | | | | | | thisreport and | | | | | | formulated the final | | | | | | diagnosis. | | | | | | Rendering Diagnostician: | | | | | | Belinda Philip | | | | | | M.HamzahPathologistElectroni | | | | | | analia Signed 05/23/2014 | | | | | | 3:10PM | | | | + + + + + + + + | Specimen | + + | Biopsy - Endometrium | + + + + + + + | Performing | Address | City/State/Zipcode | Phone Number | | Organization | | | | + + + + + | [facility] | [address] | [place] [address] | | | PATHOLOGY | [address] | | | + + + + + documented in this encounter Visit Diagnoses + + | Diagnosis | + + | Ovarian cystic mass - Primary Other and unspecified ovarian cyst | + + | Gallbladder cancer (HCC) Malignant neoplasm of gallbladder | + + | Abdominal pain, bilateral upper quadrant Abdominal pain, right upper quadrant | + + | Pelvic mass Abdominal or pelvic swelling, mass or lump, unspecified site | + + documented in this encounter
--- OUTSIDE RECORDS SUMMARY | ~2019-06-06 | XMS | Encounter Summary ---
Demographics + + + | Address | [address] | | | [place] [address] | + + + | Home Phone | | + + + | Preferred Language | Unknown | + + + | Marital Status | | + + + | Scientologist Affiliation | Unknown | + + + | Race | Unknown | + + + | Ethnic Group | Unknown | + + + Author + + + | Author | [facility] | | | and Eduardo[place] | + + + | Organization | [facility] | | | and [place]ardo[place] | + + + | Address | Unknown | + + + | Phone | Unavailable | + + + Support + + + + + | Name | Relationship | Address | Phone | + + + + + | Poncho Oquendo | ECON | [address] | | | | | [place] | | | | | [address] | | + + + + + | Marta Upton | ECON | [place] | | | | | [address] | | + + + + + Care Team Providers + +------+ + | Care Shine Worker Name | Role | Phone | + +------+ + | Valeriy Carmona DO | PCP | | + +------+ + Reason for Referral Diagnostic/Screening (Routine) +--------+--------+ + + + + | Status | Reason | Specialty | Diagnoses / | Referred By | Referred To | | | | | Procedures | Contact | Contact | +--------+--------+ + + + + | Closed | | Radiology | Diagnoses | | [address] | | | | | Carcinoma | Reinaldo, | [place] | | | | | of gall | Epifanio C, | [place], | | | | | bladder | MD [address] | [place] [address] | | | | | (HCC) | [address] | Phone: | | | | | Procedures | [place], | [phone] | | | | | CT Abdomen | [place] [address] | Fax: | | | | | Pelvis w | Phone: | [phone] | | | | | Contrast | [phone] | | | | | | | Fax: | | | | | | | [phone] | | +--------+--------+ + + + + Encounter Details +--------+ + + + + | Date | Type | Department | Care Team | Description | +--------+ + + + + | 11/29/ | Orders Only | [facility] | Reinaldo, | Carcinoma of gall | | 2015 | | [facility] PROVID[facility] | Epifanio Soler MD [address] | bladder (HCC) | | | | ONCOLOGY [address] | [address] [place] | (Primary Dx) | | | | [place], | [place] [address] | | | | | [place] [address] | [phone] | | | | | [phone] | | | +--------+ + + + [...] | Visit | | DO [address] | | | | | | [place] [address] | | | | | | [phone] | | | | | | | | +--------+---------+ + + + + +---------+--------+ + + | Name | Type | Priori | Associated Diagnoses | Order Schedule | | | | ty | | | + +---------+--------+ + + | CT Abdomen Pelvis w | Imaging | Routin | Carcinoma of gall | Expected: | | Contrast | | e | bladder (HCC) | 11/29/2014, Expires: | | | | | | 11/30/2015 | + +---------+--------+ + + documented as of this encounter Results CA 125, Quant (12/17/2014 1:22 PM PST) + +-------+ + + + | Component | Value | Ref Range | Performed | Pathologist | | | | | At | Signature | + +-------+ + + + | Cancer | 17 | 0 - 35 U/mL | [facility] | | | Antigen [address] | | | [facility] | | | | | | MEDICAL | | | | | | CENTER - | | | | | | LABORATORY | | + +-------+ + + + + + | Specimen | + + | Blood | + + + + + + + | Performing | Address | City/State/Zipcode | Phone Number | | Organization | | | | + + + + + | [facility] | [address] | [place] | [phone] | | [facility] | | [address] | | | - LABORATORY | | | | + + + + + CA 19-9, Quant (12/17/2014 1:22 PM PST) + + + + + + | Component | Value | Ref Range | Performed | Pathologist | | | | | At | Signature | + + + + + + | CA 19-9 | 15Comment: The Siemens | 0 - 37 U/mL | [facility] | | | | (formerly [facility] | | [facility] | | | | Centaur immunoassay | | | | | | method is used.Results | | | | | | obtained with different | | | | | | assay methods or kits | | | | | | cannot be | | | | | | usedinterchangeably.Test | | | | | | ing Performed: [facility], [address] | | | | [address] | | | | | | [place] [address] | | | | + + + + + + + + | Specimen | + + | Blood specimen | | (specimen) | + + + + + + + | Performing | Address | City/State/Zipcode | Phone Number | | Organization | | | | + + + + + | [facility] | [address] | [place] [address] | [phone] | + + + + + Lactate Dehydrogenase (12/17/2014 1:22 PM PST) + +---------+ + + + | Component | Value | Ref Range | Performed | Pathologist | | | | | At | Signature | + +---------+ + + + | LDH TOTAL | 242 (H) | 91 - 180 U/L | [facility] | | | | [...] + | [facility] | [address] | [place] | [phone] | | [facility] | | [address] | | | - LABORATORY | | | | + + + + + Comprehensive Metabolic Panel (12/17/2014 1:22 PM PST) + + + + + + | Component | Value | Ref Range | Performed | Pathologist | | | | | At | Signature | + + + + + + | Na | 138 | 136 - 149 | [facility] | | | | | mmol/L | [facility] | | | | | | MEDICAL | | | | | | CENTER - | | | | | | LABORATORY | | + + + + + + | K | 3.8 | 3.5 - 5.1 | [facility] | | | | | mmol/L | [facility] | | | | | | MEDICAL | | | | | | CENTER - | | | | | | LABORATORY | | + + + + + + | Cl | 103 | 98 - 109 mmol/L | [facility] | | | | | | [facility] | | | | | | MEDICAL | | | | | | CENTER - | | | | | | LABORATORY | | + + + + + + | CO2 | 26 | 24 - 31 mmol/L | [facility] | | [...] + + + + | Glucose | 101 | 70 - 109 mg/dL | [facility] | | | | | | [facility] | | | | | | MEDICAL | | | | | | CENTER - | | | | | | LABORATORY | | + + + + + + | BUN | 7 | 7 - 18 mg/dL | [facility] | | | | | | [facility] | | | | | | MEDICAL | | | | | | CENTER - | | | | | | LABORATORY | | + + + + + + | Creatinine | 0.66 | 0.60 - 1.30 | [facility] | | | | | mg/dL | [facility] | | | | | | MEDICAL | | | | | | CENTER - | | | | | | LABORATORY | | + + + + + + | eGFR if not | >60Comment: GLOMERULAR | >=60 | [facility] | | | | FILTRATION | mL/min/1.73m2 | [facility] | | | [facility] | RATE,ESTIMATED | | MEDICAL | | | | mL/min/1.21z4Pohm than | | CENTER - | | [...] | 8.6 | 8.3 - 10.5 | [facility] | | | | | mg/dL | [facility] | | | | | | MEDICAL | | | | | | CENTER - | | | | | | LABORATORY | | + + + + + + | Albumin | 3.7 | 3.2 - 5.0 g/dL | [facility] | | | | | | [facility] | | | | | | [facility] | | | | | | CENTER - | | | | | | LABORATORY | | + + + + + + | Bilirubin | 0.4Comment: This is an | 0.1 - 1.5 mg/dL | [facility] | | | Total | appended report. These | | [facility] | | | | results have been | | MEDICAL | | | | appended to a previously | | CENTER - | | | | preliminary verified | | LABORATORY | | | | report. | | | | + + + + + + | Total | 5.9 (L) | 6.0 - 7.8 g/dL | [facility] | | | Protein | | | [facility] | | | | | | MEDICAL | | | | | | CENTER - | | | | | | LABORATORY | | + + + + + + | AST | 30Comment: This is an | 10 - 42 U/L | [facility] | | | | appended report. These | | [facility] | | | | results have been | | MEDICAL | | | | appended to a previously | | CENTER - | | | | preliminary verified | | LABORATORY | | | | report. | | | | + + + + + + | ALT | 19Comment: This is an | 6 - 45 U/L | [facility] | | | | appended report. These | | [facility] | | | | results have been | | MEDICAL | | | | appended to a previously | | CENTER - | | | | preliminary verified | | LABORATORY | | | | report. | | | | + + + + + + | Alkaline | 138 (H)Comment: This is | 40 - 110 U/L | [facility] | | | Phosphatase | an appended report. | | [facility] | | | | These results have been | | MEDICAL | | | | appended to a previously | | CENTER - | | | | preliminary verified | | LABORATORY | | | | report. | | | | + + + + + + | Globulin | 2.2 | g/dL | [facility] | | | | | | [facility] | | | | | | MEDICAL | | | | | | CENTER - | | | | | | LABORATORY | | + + + + + + | Albumin/Sakina | 1.7 | | [facility] | | | bulin Ratio | | | [facility] | | | | | | MEDICAL | | | | | | CENTER - | | | | | | LABORATORY | | + + + + + + | BUN/Creatin | 10.6 | | [facility] | | | ine [...] [address] | [place] | [phone] | | [facility] | | [address] | | | - LABORATORY | | | | + + + + + CBC w/ Auto Differential (12/17/2014 1:22 PM PST) + + + + + + | Component | Value | Ref Range | Performed | Pathologist | | | | | At | Signature | + + + + + + | WBC | 3.5 (L) | 4.0 - 11.0 K/uL | [facility] | | | | | | [facility] | | | | | | MEDICAL | | | | | | CENTER - | | | | | | LABORATORY | | + + + + + + | RBC | 3.19 (L) | 3.70 - 5.20 | [facility] | | | | | M/uL | [facility] | | | | | | MEDICAL | | | | | | CENTER - | | | | | | LABORATORY | | + + + + + + | Hemoglobin | 10.6 (L) | 11.5 - 16.0 | [facility] | | | | | g/dL | [facility] | | | | | | MEDICAL | | | | | | CENTER - | | | | | | LABORATORY | | + + + + + + | Hematocrit | 33.1 (L) | 34.0 - 47.0 % | [facility] | | | | | | [facility] | | | | | | MEDICAL | | | | | | CENTER - | | | | | | LABORATORY | | + + + + + + | MCV | 103.8 (H) | 83.0 - 101.0 fL | [facility] | | | | | | [facility] | | | | | | MEDICAL | | | | | | CENTER - | | | | | | LABORATORY | | + + + + + + | MCH | 33.4 | 28.0 - 35.0 pg | [facility] | | | | | | [facility] | | | | | | MEDICAL | | | | | | CENTER - | | | | | | LABORATORY | | + + + + + + | MCHC | 32.2 | 32.0 - 36.0 | [facility] | | | | | g/dL | [facility] | | | | | | MEDICAL | | | | | | CENTER - | | | | | | LABORATORY | | + + + + + + | RDW-CV | 18.7 (H) | <15.0 % | [facility] | | | | | | [facility] | | | | | | MEDICAL | | | | | | CENTER - | | | | | | LABORATORY | | + + + + + + | Platelet | 146 | 140 - 440 K/uL | [facility] | | | Count | | | [facility] | | | | | | MEDICAL | | | | | | CENTER - | | | | | | LABORATORY | | + + + + + + | MPV | 7.6 | fL | [facility] | | | | | | [facility] | | | | | | MEDICAL | | | | | | CENTER - | | | | | | LABORATORY | | + + + + + + | % | 38.7 (L) | 45.0 - 82.0 % | [facility] | | | Neutrophils | | | [facility] | | | | | | MEDICAL | | | | | | CENTER - | | | | | | LABORATORY | | + + + + + + | % | 36.3 | 20.0 - 45.0 % | [facility] | | | Lymphocytes | | | [facility] | | | | | | MEDICAL | | | | | | CENTER - | | | | | | LABORATORY | | + + + + + + | % Monocytes | 19.7 (H) | 4.0 - 12.0 % | [facility] | | | | | | [facility] | | | | | | MEDICAL | | | | | | CENTER - | | | | | | LABORATORY | | + + + + + + | % | 3.8 | 0.0 - 5.0 % | [facility] | | | Eosinophils | | | [facility] | | | | | | MEDICAL | | | | | | CENTER - | | | | | | LABORATORY | | + + + + + + | % Basophils | 1.5 (H) | 0.0 - 1.0 % | [facility] | | | | | | [facility] | | | | | | MEDICAL | | | | | | CENTER - | | | | | | LABORATORY | | + + + + + + | Absolute | 1.40 (L) | 1.80 - 8.50 | [facility] | | | Neutrophils | | K/uL | [facility] | | | | | | MEDICAL | | | | | | CENTER - | | | | | | LABORATORY | | + + + + + + | Absolute | 1.30 | 0.60 - 3.20 | [facility] | | | Lymphocytes | | K/uL | [facility] | | | | | | MEDICAL | | | | | | CENTER - | | | | | | LABORATORY | | + + + + + + | Absolute | 0.70 | 0.00 - 1.00 | [facility] | | | Monocytes | | K/uL | [facility] | | | | | | MEDICAL | | | | | | CENTER - | | | | | | LABORATORY | | + + + + + + | Absolute | 0.10 | 0.00 - 0.40 | [facility] | | | Eosinophils | | K/uL | [facility] | | | | | | MEDICAL | | | | | | CENTER - | | | | | | LABORATORY | | + + + + + + | Absolute | 0.10 | 0.00 - 0.10 | [facility] | | | Basophils | | K/uL | 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
--- OUTSIDE RECORDS SUMMARY | ~2019-06-06 | XMS | Encounter Summary ---
Demographics + + + | Address | [address] | | | [place] [address] | + + + | Home Phone | | + + + | Preferred Language | Unknown | + + + | Marital Status | | + + + | Uatsdin Affiliation | Unknown | + + + | Race | Unknown | + + + | Ethnic Group | Unknown | + + + Author + + + | Author | [facility] | | | and [place]ardo[place] | + + + | Organization | [facility] | | | and [place] | + + + | Address | Unknown | + + + | Phone | Unavailable | + + + Support + + + + + | Name | Relationship | Address | Phone | + + + + + | Poncho Oquendo | ECON | [address] | | | | | [place] | | | | | [address] | | + + + + + | Marta Upton | ECON | [place] | | | | | [address] | | + + + + + Care Team Providers + +------+ + | Care Optical Lathe Operator Name | Role | Phone | + +------+ + | Valeriy Carmona DO | PCP | | + +------+ + Encounter Details +--------+ + + + + | Date | Type | Department | Care Team | Description | +--------+ + + + + | 05/07/ | Orders Only | [facility] | Marcelina Johnson, | | | 2016 | | MED CTR CHEMO | RN | | | | | INFUSION [address] | | | | | | [place], | | | | | | [place] [address] | | | | | | [phone] | | | +--------+ + + + [...] | | | | | [place] [address] | | | | | | [phone] | | | | | | | | +--------+---------+ + + + documented as of this encounter Visit Diagnoses Not on filedocumented in this encounter"
--- OUTSIDE RECORDS SUMMARY | ~2019-06-06 | XMS | Encounter Summary ---
Demographics + + + | Address | [address] | | | [place] [address] | + + + | Home Phone | | + + + | Preferred Language | Unknown | + + + | Marital Status | | + + + | Mosque Affiliation | Unknown | + + + | Race | Unknown | + + + | Ethnic Group | Unknown | + + + Author + + + | Author | [facility] | | | and [place] | + + + | Organization | [facility] | | | and [place] | + + + | Address | Unknown | + + + | Phone | Unavailable | + + + Support + + + + + | Name | Relationship | Address | Phone | + + + + + | Poncho Oquendo | ECON | [address] | | | | | [place] | | | | | [address] | | + + + + + | Marta Upton | ECON | [place] | | | | | [address] | | + + + + + Care Team Providers + +------+ + | Care Ink Blender Name | Role | Phone | + [...] Closed | | Oncology | Diagnoses | Shabbir, | | | | | | Gallbladder | MD Louise | Reinaldo, | | | | | cancer | [address] | Chad Soler MD | | | | | (HCC) | [place]MAN[place]EL | [address] | | | | | Procedures | [place] | [address] | | | | | [place] OFFICE | [address] | [place] | | | | | OUTPATIENT | Phone: | [phone] Phone: | | | | | VISIT 25 | [phone] | [phone] | | | | | MINUTES | Fax: | Fax: | | | | | | [phone] | [phone] | +--------+--------+ + + + + Encounter Details +--------+ + + + + | Date | Type | Department | Care Team | Description | +--------+ + + + + | 09/16/ | Hospital | [facility] | Reinaldo, | Gallbladder cancer, | | 2015 | Encounter | [facility] | Chad Soler MD [address] | carcinoma (HCC) | | | | [facility] [address] | (Primary Dx) | | | | [address] | [place] [address] | | | | | [place] [address] | [phone] | | | | | [phone] | | | +--------+ + + + [...] + + + | Blood Pressure | 109/66 | 09/16/2014 1:03 PM | | | | | PDT | | + + + + + | Pulse | 97 | 09/16/2014 1:03 PM | | | | | PDT | | + + + + + | Temperature | 36.5 C (97.7 F) | 09/16/2014 1:03 PM | | | | | PDT | | + + + + + | Respiratory Rate | 16 | 09/16/2014 1:03 PM | | | | | PDT | | + + + + + | Oxygen Saturation | 100% | 09/16/2014 1:03 PM | | | | | PDT | | + + + + + | Inhaled Oxygen | - | - | | | Concentration | | | | + + + + + | Weight | 79.4 kg (175 lb 0.7 | 09/16/2014 1:03 PM | | | | oz) | PDT | | + + + + + | Height | - | - | | + + + + + | Body Mass Index | 30.25 | 03/18/2014 1:24 PM | | | | | PST | | + + + + + documented in this encounter Medications at Time [...] documented as of this encounter Progress Notes Chad Riggins MD - 09/16/2014 1:02 PM PDTFormatting of this note might be differe nt from the original. Hematology/Oncology Progress Note [facility] Pt. Name/Age/: Aura Upton 53 y.o. 1960 Med. Record Number: [id number] Date of admission: 09/16/2014 Identifying Statement: Aura Upton is a 53 y.o. female from [address] [place] [id number] with Recurrent Cholangiocarcinoma. The patient chart and medications were reviewed in detail and the patient was seen and exam ined. History of Present Illnesses, their Current Assessments and Plans: Problems That Were Updated This Visit Gallbladder cancer, carcinoma Overview ACTIVE DIAGNOSES: Recurrent cholangiocarcinoma. 1. Presentation with biliary colic in March of 2012; status post cholecystectomy and hailee er biopsy by Dr. Brandon Garcia March 29, 2012, pathological specimen [id number], analyzed by Dr. Bowers of [facility] and was notable for a poorly-differentiated adenoc arcinoma of the gallbladder. Liver biopsy demonstrated mild portal inflammation. 2. On April 28, 2012, she successfully underwent an R0 resection by Dr. Tai Stanton at [facility], pathological specimen [id number] was notable for the absence of any residual carcinoma within the gallbladder bed. However, 2/8 regional lym ph nodes contained regionally metastatic disease. 3. Consultation by Dr. Elva Grey of the [facility] on May returned the recommendation for adjuvant chemoradiation therapy following [id number] as follows: Capecitabine at 750 mg/m sq twice daily days 1 through 14 given concurrently with Gemcitabine 1000 mg/m sq on day 1, day 8. Cycle length is 21 days. The prescription was for four cycles to be followed by capecitabine at 665 mg/m sq twice da jose alejandro given concurrently with radiation therapy. 4. Following the completion of her adjuvant chemotherapy-chemoradiation program she had a screening CT scan of the chest, abdomen and pelvis in the asymptomatic state March 21 5 demonstrating probable follicle in the left ovary. 5. Repeat CT scan of the chest, abdomen and pelvis while still asymptomatic May 18, 2014 demonstrated a 6.1 cm x 6.5 cm x 5.8 cm complex mass within the left adnexa and a new 3.57 x 3.6 cm x 4 cm mass anterior to the uterus on the right. 6. On June 07, 2014 she underwent exploratory laparotomy, total abdominal hysterectomy, b ilateral salpingo-oophorectomy, pelvic and periaortic lymphadenectomy, omentectomy and surgi gabo staging by Dr. Oziel Casillas of the [facility]. Pathological analysis was notable for 9.5 cm mass replacing the left tube and ovary extensively involvin g the ovarian stroma with focal involvement of the fallopian tube stroma. The tumor was poo rly differentiated carcinoma with neuroendocrine features showing a similar histopathology p attern to the previously excised lymph node from the gallbladder bed in 2012. In addition, immunohistochemistry positive for CDX2 consistent with a gastrointestinal origin. In additi on, the biopsy of the suspicious mass in the sigmoid colon was also positive for metastatic poorly differentiated carcinoma with neuroendocrine features. Right ovary and tube containe d a 5 cm metastatic poorly differential adenocarcinoma with neuroendocrine features. Remova l of the suspicious lesion from the cul-de-sac also demonstrated metastatic poorly different ial carcinoma with neuroendocrine features. At the end of the procedure there was "no gross evidence of disease palpable or visible at the time of the completion of the procedure." 7. Consultation with Dr. Elva Grey the [facility] in June 26, 2014 who recommended additional chemotherapy was cisplatin at 75 mg meter squared on day 1 a nd gemcitabine 1250 mg per meter squared on day one and day 8 of acute 21 day cycle for 6-8 cycles. A second opinion was obtained by Dr. Richie Thayer of the [facility]ance who returned the recommendation for additional chemotherapy was cisplatin at 25 mg met er squared and gemcitabine 1000 mg per meter squared both given together on day one and day 8 of acute 21 day cycle for 6 cycles 8. Status post left anterior chest Port-A-Cath by Dr. Brandon Garcia July 25, 2014 9. Initiation of chemotherapy phone the recommendations of [facility]. [facility]ie [facility]of the [facility] with gemcitabine at 1000 mg per meter squared on day one and day 8 wi th cisplatin 25 mg meter squared on day one and day 8 of a Q 21 day cycle beginning on July 26, 2014 complicated by grade 3 neutropenia and grade [address]. [address] scan of the chest, abdomen and pelvis that [facility] on September 16, 2014 demonstrated no radiographic evidence of disease. Current Assessment & Plan Aura return to clinic on September 16, [address] scan from earlier today the d emonstrates no evidence of metastatic or locally recurrent cholangiocarcinoma of the gallbla dder. Laboratory evaluation is notable for recurrent grade 3 thrombocytopenia. Plan; Aura will return to see me at the [facility] in [place], [place] on September 20, 2014 for clinical and laboratory follow up and consideration of #4 of c hemotherapy. Review of Systems: Constitutional: Reports that she still has a tendency to tire easily. Denies shaking chill s, anorexia, nausea, vomiting. Slight weight loss noted today. Reports that she has night sweats once in awhile. Pt states her appetite is good. Ear, Nose, Mouth, Throat: Denies odynophagia, dysphagia. Reports chronic tinnitus and state s it has gotten worse since starting on the Cisplatin. Cardiovascular: Denies shortness of breath, dyspnea on exertion, chest pain, palpitations o r orthopnea. Respiratory: Denies cough, hemoptysis, or sputum production. Gastrointestinal: Reports that every once in awhile she gets pain in the area of radiation and also in her incisional area. Denies constipation, diarrhea, melena, or bright red blood per rectum. She reports that she had a colonoscopy in July [address] Garcia that showed onl y some diverticulitis. Genitourinary: Denies hematuria or dysuria. Musculoskeletal: Reports that she had been struggling with right knee pain. States that zachariah whiting had arthroscopic surgery on this knee in August 2013. She states that it's still not right so they"re going back for surgery this , 03/21/14. Also has some right low back pain. States that she has significant arthritis in her both thumbs. Neurologic: Reports that she gets occasional headaches. States that she has really signifi cant memory issues and has to work really hard to remember things. Denies visual changes or numbness/tingling of the extremities. Endocrine: Denies peripheral edema or heat/cold intolerance. Hematologic: Denies spontaneous bruising or bleeding. Integumentary: Denies rash, wounds or other skin concerns. Pain: Reports that she has 4/10 pain in her right mid quadrant of her abdomen where her sca r is. She states that it's not a constant pain but today it's really making her jump. She u ses the Hydrocodone intermittently for this pain. Note:Here today for followup and lab and review of the CT scan. Review of systems as above otherwise negative Past Medical and Surgical History, Social History and Problems: History reviewed. No pertinent past medical history. History reviewed. No pertinent past surgical history. History Social History Marital Status: Single Spouse Name: N/A Number of Children: N/A Years of Education: N/A Occupational History Not on file. Social History Main Topics Smoking status: Never Smoker Smokeless tobacco: Not on file Alcohol Use: Not on file Drug Use: Not on file Sexual Activity: Not on file Other Topics Concern Not on file Social History Narrative Patient Active Problem List Diagnosis LOW BACK PAIN, CHRONIC DISC DISEASE, CERVICAL PARESTHESIA, HANDS OBESITY HIP PAIN DISC DISEASE, LUMBAR OSTEOARTHRITIS, LUMBOSACRAL SPINE HEARING LOSS TINNITUS SENSORY HEARING LOSS UNILATERAL LUMBAGO DEGENERATIVE DISC DISEASE, LUMBAR SPINE OSTEOARTHRITIS, LUMBOSACRAL SPINE Gallbladder cancer, carcinoma Scheduled Medications: Patient Reported Taking Dosage acetaminophen (TYLENOL) 500 mg tablet (Taking) Take 500 mg by mouth every 4 hours as need ed. Number of times this order has been changed since signin [facility] [place] dexamethasone (DECADRON) 4 mg tablet (Taking) Take one tablet PO as directed. Number of times this order has been changed since signin [facility] [place] docusate calcium (SURFAK) 240 mg capsule (Taking) Take 240 mg by mouth as needed. Number of times this order has been changed since signin [facility] [place] fish oil 1,000 mg capsule (Taking) Take 1,000 mg by mouth Daily. Number of times this order has been changed since signin [facility] [place] HYDROcodone-acetaminophen (VICODIN) 5-500 mg per tablet (Taking) Take 1 tablet by mouth e very 4 hours as needed. Number of times this order has been changed since signin [facility] [place] MULTIPLE VITAMIN PO (Taking) Take by mouth Daily. Number of times this order has been changed since signin [facility] [place] Probiotic Product (PROBIOTIC DAILY PO) (Taking) Take by mouth Daily. Number of times this order has been changed since signin [facility] [place] Allergy: Allergies Allergen Reactions Sulfa Antibiotics Objectives: Temp: 36.5 C (97.7 F) BP: 109/66 mmHg Pulse: 97 Resp: 16 SpO2: 100 % on Min/Max Temp past 24 hours:Temp Av.5 C (97.7 F) Min: 36.5 C (97.7 F) Max: 3 6.5 C (97.7 F) No intake or output data in the 24 hours ending 09/16/14 2110 Wt. Admission: Weight: 79.4 kg (175 lb 0.7 oz) Wt. Current: Weight: 79.4 kg (175 lb 0.7 oz) Wt Readings from Last 3 Encounters: 09/16/14 79.4 kg (175 lb 0.7 oz) 03/18/14 84.3 kg (185 lb 13.6 oz) 09/25/13 85.5 kg (188 lb 7.9 oz) Physical Exam: Exam: General: The patient is alert and oriented. No acute distress. Eyes: Conjunctiva clear. Sclera anicteric. ENMT: Oropharynx fee of lesions, mucous membranes moist. Cardiovascular: Regular rate and rhythm, no rubs, gallops, or murmurs. Respiratory: Clear to auscultation and percussion. Chest: Left anterior chest Port-A-Cath was not reaccessed. Extremities: Nontender, no erythema, no edema. Skin: No rashes, bruising, or petechiae. Neurological: No focal deficits noted. Muscular/Skeletal: No evidence of sarcopenia. Psychiatric: Normal mood and affect. ECOG Performance Status [x] 0 [] 1 [] 2 []3 [] 4 ECOG PERFORMANCE STATUS* Grade ECOG Karnofsky 0 Fully active, able to carry on all pre-disease performance without restriction. 90 - 100 1 Restricted in physically strenuous activity but ambulatory and able to carry out work of a light or sedentary nature, e.g., light house work, office work 70 - 80 2 Ambulatory and capable of all selfcare but unable to carry out any work activ ities. Up and about more than 50% of waking hours 50 - 60 3 Capable of only limited selfcare, confined to bed or chair more than 50% of w aking hours 30 - 40 4 Completely disabled. Cannot carry on any selfcare. Totally confined to bed or chair 10 - 20 * As published in Am. J. Clin. Oncol.: Golden Gonzalez., Adali RAshley., Steven Figueroa., Birdie Burns., Avery, TLuis Eduardo., James, E.T., Viraj, P .P.: Toxicity And Response Criteria Of The Eastern Cooperative Oncology Group. Am J Clin Onc ol 5:649-655, 1982. The ECOG Performance Status is in the public domain therefore available for public use. To duplicate the scale, please cite the reference above and credit the Eastern Cooperative Onco logy Group, Chad Figueroa M.D., Group Chair Diagnostic studies: Available data and images were reviewed personally. See reports. Significant results and findings are addressed here or in the Assessment and Plan. ENHANCED CT ABDOMEN AND PELVIS 09/16/2014 12:10 PM CLINICAL HISTORY: cholangiocarcinoma COMPARISON: CT chest, abdomen and pelvis May 22 and multiple previous CTs TECHNIQUE: Axial images are performed through the abdomen and pelvis following the uneventful intravenous administration of 90 mL Omnipaque 350 contrast. Oral contrast is also administered. Coronal and sagittal reformations are also performed. ABDOMEN FINDINGS: A fat-containing Bochdalek type diaphragmatic hernia is again noted at the posterior left lung base. Imaged lung bases and mediastinum are otherwise unremarkable. There are similar postoperative changes inferiorly in the central liver extending to the gallbladder fossa and estevan hepatis, with surgical clips again extending along the main portal vein and course of the common bile duct. The gallbladder is absent. No hepatic parenchymal abnormality is evident and the portal and hepatic veins remain widely patent. No biliary ductal dilation is present. A solitary calcification consistent with a granuloma persists in the spleen. The pancreas, adrenal glands and the kidneys are unremarkable. There is no hydronephrosis. There is left colonic diverticulosis, without evidence of diverticulitis. A moderate volume of stool is present throughout the colon, without evidence of bowel obstruction. Oral contrast has reached the ascending colon at the time the exam. The stomach, bowel and appendix are otherwise unremarkable. No free air, free fluid, pathologic lymph node enlargement or hernia is evident. A healing appearing ventral, midline abdominal wall incision is now present. There is scattered aortoiliac calcification. Lumbar facet hypertrophy is present. No lytic or blastic bone lesion is identified. PELVIS FINDINGS: The uterus and ovaries are now absent. No residual/recurrent adnexal mass is apparent. The bladder is unremarkable. Rounded calcifications in the deep pelvic cavity are consistent with phleboliths. No free air, free fluid, pathologic lymph node enlargement or hernia is evident. The bones and soft tissues are unremarkable, without evidence of lytic or blastic lesion. IMPRESSION - 1. STABLE POSTOPERATIVE CHANGES INVOLVING THE CENTRAL LIVER, WITHOUT EVIDENCE OF RECURRENT MALIGNANCY. 2. INTERVAL HYSTERECTOMY AND OOPHORECTOMY COMPARED WITH CT OF MAY 22 WITHOUT EVIDENCE OF RESIDUAL OR RECURRENT ADNEXAL MASS OR OTHER SUSPICIOUS FINDING. 3. MODERATE COLONIC STOOL RETENTION AND COLONIC DIVERTICULOSIS WITHOUT EVIDENCE OF BOWEL OBSTRUCTION OR DIVERTICULITIS. Dictated and Signed by: Axel Frost MD Electronically signed: 09/16/2014 3:59 PM Results for AURA UPTON ( ) as of 09/16/2014 21:13 Ref. Range 09/16/2014 11:18 WBC Latest Range: 4.0-11.0 K/uL 5.6 RBC: Latest Range: 3.70-5.20 M/uL 4.28 Hgb Latest Range: 11.5-16.0 g/dL 12.4 Hct, Final Latest Range: 34.0-47.0 % 37.8 MCV Latest Range: 83.0-101.0 fL 88.2 MCH Latest Range: 28.0-35.0 pg 29.0 MCHC Latest Range: 32.0-36.0 g/dL 32.9 RDW Latest Range: <15.0 % 14.2 Platelet Count Latest Range: 140-440 K/uL 48 (L) MPV No range found 7.8 Absolute Neutrophils Latest Range: 1.80-8.50 K/uL 3.40 Absolute Lymphocytes Latest Range: 0.60-3.20 K/uL 1.70 Absolute Monocytes Latest Range: 0.00-1.00 K/uL 0.30 Absolute Eosinophils Latest Range: 0.00-0.40 K/uL 0.10 Absolute Basophils Latest Range: 0.00-0.10 K/uL 0.00 % Neutrophils Latest Range: 45.0-82.0 % 61.6 % Lymphocytes Latest Range: 20.0-45.0 % 29.6 % Monocytes Latest Range: 4.0-12.0 % 5.7 % Eosinophils Latest Range: 0.0-5.0 % 2.6 % Basophils Latest Range: 0.0-1.0 % 0.5 NA Latest Range: 136-149 mmol/L 137 K Latest Range: 3.5-5.1 mmol/L 3.8 CL Latest Range: 98-109 mmol/L 102 CO2 Latest Range: 24-31 mmol/L 29 ANION GAP Latest Range: 3-16 mmol/L 6 GLUCOSE Latest Range: 70-109 mg/dL 95 BUN Latest Range: 7-18 mg/dL 10 BUN/CREA No range found 14.3 CREA Latest Range: 0.60-1.30 mg/dL 0.70 ALBUMIN Latest Range: 3.2-5.0 g/dL 3.7 Albumin/Globulin ratio No range found 1.2 Total protein Latest Range: 6.0-7.8 g/dL 6.7 EGFR IF NOT Latest Range: >=60 mL/min/1.73m2 >60 Calcium Latest Range: 8.3-10.5 mg/dL 8.9 ALK PHOS Latest Range: 40-110 U/L 164 (H) ALT (SGPT) (REF) Latest Range: 6-45 U/L 34 AST Latest Range: 10-42 U/L 28 LD TOTAL Latest Range: 91-180 U/L 160 BILIRUBIN TOTAL Latest Range: 0.1-1.5 mg/dL 0.5 GLOBULIN No range found 3.0 CA-125 Latest Range: 0-35 U/mL 23 CEA Latest Range: 0.0-10.0 ng/mL 0.9 Pharmacovigilance: No current IDT available for review Palliative Care: Patient's Medications New Prescriptions No medications on file Modified Medications No medications on file Discontinued Medications No medications on file Procedure: None perfomed. CHAD RIGGINS MD Portions of this chart may have been created with [employer] voice recognition software. Occasi onal wrong-word or sound-alike substitutions may have occurred due to the inherent stevenson itations of voice recognition software. Please read the chart carefully and recognize, using context, where these substitutions have occurred. documented in this encounter Plan of Treatment +--------+---------+ + + + | Date | Type | Specialty | Care Team | Description | +--------+---------+ + + + | 09/17/ | Office | Urology | Pedro Green, | | | 2019 | Visit | | DO [address] | | | | | | [place] [address] | | | | | | [phone] | | | | | | | | +--------+---------+ + + + documented as of this encounter Visit Diagnoses + + | Diagnosis | + + | Gallbladder cancer, 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
--- OUTSIDE RECORDS SUMMARY | ~2019-06-06 | XMS | Encounter Summary ---
Demographics + + + | Address | [address] | | | [place] [address] | + + + | Home Phone | | + + + | Preferred Language | Unknown | + + + | Marital Status | | + + + | Catholic Affiliation | Unknown | + + + | Race | Unknown | + + + | Ethnic Group | Unknown | + + + Author + + + | Author | [facility] | | | and Eduardoana | + + + | Organization | [facility] | | | and [place]ardo[place] | + + + | Address | Unknown | + + + | Phone | Unavailable | + + + Support + + + + + | Name | Relationship | Address | Phone | + + + + + | Poncho Oquendo | ECON | [address] | | | | | [place] | | | | | [address] | | + + + + + | Marta Upton | ECON | [address] [place] | | | | | [address] | | + + + + + Care Team Providers + +------+ + | Care Academic Administrator Name | Role | Phone | [...] Closed | | Oncology | Diagnoses | | Travis, | | | | | Malignant | Reinaldo, | Vladimir Nelson MD | | | | | neoplasm of | Epifanio Soler, | [address]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 | [address] | | | | | (HCC) | RICARDA LINDQUIST, | [place], | | | | | Procedures | [address] | [place] [address] | | | | | [place] OFFICE | OBED, | Phone: | | | | | OUTPATIENT | [place] [address] | [phone] | | | | | VISIT 25 | | Fax: | | | | | MINUTES | | [phone] | +--------+--------+ + + + + Encounter Details +--------+ + + + + | Date | Type | Department | Care Team | Description | +--------+ + + + + | 11/22/ | Hospital | [facility] | Vladimir Robles, | Cholangiocarcinoma | | 2015 | Encounter | [facility] | MD Mondragon W ASHANTI | (HCC) (Primary Dx); | | | | ONCOLOGY CLINIC [address] [place], | Pancytopenia due to | | | | [address] [place] | [place] [address] | antineoplastic | | | | [place] [address] | [phone] | chemotherapy (HCC) | | | | [phone] | | | +--------+ + + + [...] + + + | Blood Pressure | 92/56 | 11/22/2014 8:45 AM | | | | | PDT | | + + + + + | Pulse | 93 | 11/22/2014 8:45 AM | | | | | PDT | | + + + + + | Temperature | 36.8 C (98.2 F) | 11/22/2014 8:45 AM | | | | | PDT | | + + + + + | Respiratory Rate | 18 | 11/22/2014 8:45 AM | | | | | PDT | | + + + + + | Oxygen Saturation | 100% | 11/22/2014 8:45 AM | | | | | PDT | | + + + + + | Inhaled Oxygen | - | - | | | Concentration | | | | + + + + + | Weight | 83.5 kg (184 lb 1.4 | 11/22/2014 8:45 AM | | | | oz) | PDT | | + + + + + | Height | - | - | | + + + + + | Body Mass Index | 31.82 | 10/31/2014 9:02 AM | | | | | PDT [...] documented as of this encounter Progress Notes Vladimir Robles MD - 11/22/2014 8:33 AM PDTFormatting of this note might be different fr om the original. Hematology/Oncology Progress Note [facility] Pt. Name/Age/: Aura Upton 54 y.o. 1960 Med. Record Number: [id number] Date of admission: 11/22/2014 Identifying Statement: Aura Upton is a 54 y.o. female from [id number] [place] [id number] with Recurrent Cholangiocarcinoma. The patient chart and medications were reviewed in detail and the patient was seen and exam ined. History of Present Illnesses, their Current Assessments and Plans: Gallbladder cancer, carcinoma Overview ACTIVE DIAGNOSES: Recurrent cholangiocarcinoma. 1. Presentation with biliary colic in March of 2012; status post cholecystectomy and hailee er biopsy by Dr. Brandon Garcia March 29, 2012, pathological specimen [id number], analyzed by Dr. Bowers of [facility] and was notable for a poorly-differentiated adenoc arcinoma of the gallbladder. Liver biopsy demonstrated mild portal inflammation. 2. On April 28, 2012, she successfully underwent an R0 resection by Dr. Tia Stanton at [facility], pathological specimen [id number] was notable for the absence of any residual carcinoma within the gallbladder bed. However, 2/8 regional lym ph nodes contained regionally metastatic disease. 3. Consultation by Dr. Elva Grey of the [facility] on May returned the recommendation for adjuvant chemoradiation therapy following [id number] as follows: Capecitabine at 750 mg/m sq [...] her adjuvant chemotherapy-chemoradiation program she had a s creening CT scan of the chest, abdomen and pelvis in the asymptomatic state March 21, 2014 demonstrating probable follicle in the left ovary. 5. Repeat CT scan of the chest, abdomen and pelvis while still asymptomatic May 18, 2014 d emonstrated a 6.1 cm x 6.5 cm x 5.8 cm complex mass within the left adnexa and a new 3.57 x 3.6 cm x 4 cm mass anterior to the uterus on the right. 6. On June 07, 2014 she underwent exploratory laparotomy, total abdominal hysterectomy, bi lateral salpingo-oophorectomy, pelvic and periaortic lymphadenectomy, omentectomy and surgic al staging by Dr. Oziel Casillas of the [facility]. Pathological a nalysis was notable for 9.5 cm mass replacing the left tube and ovary extensively involving the ovarian stroma with focal involvement of the fallopian tube stroma. The tumor was poorly differentiated carcinoma with neuroendocrine features showing a similar histopathology marcy nevaeh to the previously excised lymph node from the gallbladder bed in 2013. In addition, immu nohistochemistry positive for CDX2 consistent with a gastrointestinal origin. In addition, t he biopsy of the suspicious mass in the sigmoid colon was also positive for metastatic poorl y differentiated carcinoma with neuroendocrine features. Right ovary and tube contained a 5 cm metastatic poorly differential adenocarcinoma with neuroendocrine features. Removal of th e suspicious lesion from the cul-de-sac also demonstrated metastatic poorly differential car cinoma with neuroendocrine features. At the end of the procedure there was "no gross evidenc e of disease palpable or visible at the time of the completion of the procedure." 7. Consultation with Dr. Elva Grey the [facility] in June 26 015 who recommended additional chemotherapy was cisplatin at 75 mg meter squared on day 1 an d gemcitabine 1250 mg per meter squared on day one and day 8 of acute 21 day cycle for 6-8 c ycles. A second opinion was obtained by Dr. Richie Thayer of the [facility] who returned the recommendation for additional chemotherapy was cisplatin at 25 mg meter squared and gemcitabine 1000 mg per meter squared both given together on day one and day 8 of acute 21 day cycle for 6 cycles 8. Status post left anterior chest Port-A-Cath by Dr. Brandon Garcia July 25, 2014 9. Initiation of chemotherapy phone the recommendations of Dr. Richie Thayerof the [facility] with gemcitabine at 1000 mg per meter squared on day one and day 8 wi th cisplatin 25 mg meter squared on day one and day 8 of a Q 21 day cycle beginning on July 26, 2014 complicated by grade 3 neutropenia and grade [address]. [address] scan of the chest, abdomen and pelvis that [facility] on September 16, 2014 demonstrated no radiographic evidence of disease. Patient returns today for day 1 cycle #6 of chemotherapy. Continues to have profound fatig ue, started Aranesp for her chemotherapy related anemia recently. No fevers or sweats, no b leeding or increased bruising. Denies nausea vomiting, no new pains. No new paresthesias. Assessment: Patient unfortunately has progressive chemotherapy associated pancytopenia. Her current AN C as well as platelets are below the typical threshold for initiation of chemotherapy, certa inly would be high risk to proceed. Patient however was very dismayed by the concept of sary atment delay or further dose reduction, and strongly request proceeding despite that risk. She was carefully counseled that this would put her at increased risk for potentially life-t hreatening complications such as bleeding and infection and she wishes to proceed nonetheles s. She was also counseled that her blood counts on day 8 may preclude safe treatment at alisha t time. Plan: 1. Proceed with day 1 cis-quechan and gemcitabine as outlined above. 2. Neutropenic and thrombocytopenic precautions reviewed. 3. Follow-up in [address] Najera to consider day 8 chemotherapy. Review of Systems: Constitutional: Fatigue states her energy level is very low. Denies fever or shaking chill s, anorexia, nausea, or vomiting. No weight loss, or night sweats. States her appetite is f ine. Ear, Nose, Mouth, Throat: Denies odynophagia, dysphagia. Chronic tinnitus. States she has a couple blisters inside of her mouth. Cardiovascular: Shortness of breath at rest and dyspnea on exertion. Denies chest pain, pa lpitations or orthopnea. States with minimal activity she has noticed her heart racing. Stat es she has noticed this for about a month or so. Respiratory: Denies cough, hemoptysis, or sputum production. Gastrointestinal: Denies abdominal pain, constipation, diarrhea, melena, or bright red bloo d per rectum. Genitourinary: Denies hematuria or dysuria. Musculoskeletal: States she continues to have constant right knee pain and also has low bunny k and posterior neck pain 8/10. Neurologic: States she continues to have occasional headaches. States that she has really significant memory issues and has to work really hard to remember things. States she is hugo ble to focus. States that she is unable to see the television. "It's blurred." Denies numbne ss/tingling of the extremities. Endocrine: Edema noted bilaterally to lower extremities, hands, and face. No heat/cold into lerance. Hematologic: Spontaneous bruising no bleeding. Integumentary: Denies rash, wounds or other skin concerns. Pain: States she continues to have constant right knee pain and also has low back and poste rior neck pain 09/23. She uses the Hydrocodone prn for this pain. Note: Follow up appointment with Dr. Robles and labs with 5 hour chemo. Review of systems as above otherwise negative Past Medical and Surgical History, Social History and Problems: No past medical history on file. No past surgical history on file. History Social History Marital Status: Single Spouse [...] SPINE OSTEOARTHRITIS, LUMBOSACRAL SPINE Gallbladder cancer, carcinoma Neoplasm related pain (acute) (chronic) Scheduled Medications: Patient Reported Taking Dosage acetaminophen (TYLENOL) 500 mg tablet (Taking) Take 500 mg by mouth every 4 hours as need ed. Number of times this order has been changed since signin [facility] amitriptyline (ELAVIL) 10 mg tablet (Taking) Take 10 mg by mouth nightly. Number of times this order has been changed since signin [facility] dexamethasone (DECADRON) 4 mg tablet (Taking) Take one tablet PO as directed. Number of times this order has been changed since signin [facility] docusate calcium (SURFAK) 240 mg capsule (Taking) Take 240 mg by mouth as needed. Number of times this order has been changed since signin [facility] fish oil 1,000 mg capsule (Taking) Take 1,000 mg by mouth Daily. Number of times this order has been changed since signin [facility] HYDROcodone-acetaminophen (VICODIN) 5-500 mg per tablet (Taking) Take 1 tablet by mouth e very 4 hours as needed. Number of times this order has been changed since signin [facility] MULTIPLE VITAMIN PO (Taking) Take by mouth Daily. Number of times this order has been changed since signin [facility] ondansetron (ZOFRAN ODT) 8 mg disintegrating tablet (Taking) Take 8 mg by mouth every 8 h ours as needed for Nausea. Number of times this order has been changed since signin [facility] Probiotic Product (PROBIOTIC DAILY PO) (Taking) Take by mouth Daily. Number of times this order has been changed since signin Order [facility] Allergy: Allergies Allergen Reactions Sulfa Antibiotics Rash Objectives: Temp: 36.8 C (98.2 F) BP: 92/56 mmHg Pulse: 93 Resp: 18 SpO2: 100 % on Min/Max Temp past 24 hours:Temp Av.8 C (98.2 F) Min: 36.8 C (98.2 F) Max: 3 6.8 C (98.2 F) No intake or output data in the 24 hours ending 11/22/14 0859 Wt. Admission: Weight: 83.5 kg (184 lb 1.4 oz) Wt. Current: Weight: 83.5 kg (184 lb 1.4 oz) Wt Readings from Last 3 Encounters: 11/22/14 83.5 kg (184 lb 1.4 oz) 10/31/14 83.5 kg (184 lb 1.4 oz) 09/16/14 79.4 kg (175 lb 0.7 oz) Physical Exam: Exam: General: The patient is alert and oriented. No acute distress. Here with mother. Eyes: Sclera anicteric. Respiratory: Clear to auscultation and percussion. Extremities: Nontender, no erythema, no edema. Skin: No rashes, bruising, or petechiae. Psychiatric: Normal mood and affect. ECOG Performance Status [x] 0 [x] 1 [] 2 []3 [] 4 Diagnostic studies: Available data and images were reviewed personally. See reports. Significant results and findings are addressed here or in the Assessment and Plan. Recent Results (from the past 24 hour(s)) CBC with Differential Result Value Ref Range WBC 2.7 (L) 4.0-11.0 K/uL RBC 2.60 (L) 3.70-5.20 M/uL Hgb 9.0 (L) 11.5-16.0 g/dL Hct 27.7 (L) 34.0-47.0 % MCV 106.5 (H) 83.0-101.0 fL MCH 34.7 28.0-35.0 pg MCHC 32.6 32.0-36.0 g/dL RDW-CV 22.0 (H) <15.0 % Platelet Count 88 (L) 140-440 K/uL MPV 8.5 fL % Neutrophils 36.0 (L) 45.0-82.0 % % Lymphocytes 35.0 20.0-45.0 % % Monocytes 23.9 (H) 4.0-12.0 % % Eosinophils 4.2 0.0-5.0 % % Basophils 0.9 0.0-1.0 % Absolute Neutrophils 1.00 (L) 1.80-8.50 K/uL Absolute Lymphocytes 0.90 0.60-3.20 K/uL Absolute Monocytes 0.60 0.00-1.00 K/uL Absolute Eosinophils 0.10 0.00-0.40 K/uL Absolute Basophils 0.00 0.00-0.10 K/uL Comprehensive Metabolic Panel Result Value Ref Range NA 135 (L) 136-149 mmol/L K 3.9 3.5-5.1 mmol/L CL 101 98-109 mmol/L CO2 27 24-31 mmol/L ANION GAP 7 3-16 mmol/L GLUCOSE 114 (H) 70-109 mg/dL BUN 4 (L) 7-18 mg/dL Creatinine, Serum/Plasma 0.77 0.60-1.30 mg/dL eGFR if not >60 >=60 mL/min/1.73m2 CALCIUM 8.7 8.3-10.5 mg/dL ALBUMIN 3.6 3.2-5.0 g/dL BILIRUBIN TOTAL 0.4 0.1-1.5 mg/dL Total protein 5.7 (L) 6.0-7.8 g/dL AST 28 10-42 U/L ALT 18 6-45 U/L ALK PHOS 132 (H) 40-110 U/L GLOBULIN 2.1 g/dL Albumin/Globulin ratio 1.7 BUN/CREA 5.2 Lactate Dehydrogenase Result Value Ref Range LD TOTAL 220 (H) 91-180 U/L CA 125, Quant Result Value Ref Range CA-125 19 0-35 U/mL Vladimir Robles MD DATE/TIME: 11/22/2014 9:05 Portions of this chart may have been created with Remote voice recognition software. Occasi onal wrong-word or [...] [address] | | | | | | [place] [address] | | | | | | [phone] | | | | | | | | +--------+---------+ + + + documented as of this encounter Procedures + +--------+ + + + | Procedure Name | Priori | Date/Time | Associated Diagnosis | Comments | | | ty | | | | + +--------+ + + + | LABS - EXTERNAL SCAN | | 04/22/2016 | | Results for this | | | | 12:00 AM | | procedure are in the | | | | PST | | results section. | + +--------+ + + + documented in this encounter Results LABS - EXTERNAL SCAN (04/22/2016 12:00 AM PST) + + + | Narrative | Performed At | + + + | Ordered by an | | | unspecified provider. | | + + + documented in this encounter Visit Diagnoses + + | Diagnosis | + + | Cholangiocarcinoma (HCC) - Primary Malignant neoplasm of intrahepatic bile ducts | + + | Pancytopenia due to antineoplastic chemotherapy (HCC) Antineoplastic chemotherapy | | induced pancytopenia | + + documented in this encounter
--- OUTSIDE RECORDS SUMMARY | ~2019-06-06 | XMS | Encounter Summary ---
Demographics + + + | Address | [address] | | | [place] [address] | + + + | Home Phone [...] Author + + + | Author | [facility] | + + + | Organization | [facility] | + + + | Address [...] Team Providers + +------+ + | Care Vasc Tech Name | Role | Phone | + [...] Description | +--------+---------+ + + + | 07/05/ | Office | Otolaryngology | Virgilio Buck MD | Perforation of Nasal | | 2008 | Visit | Facial Plastics & | [address] | Septum (Primary Dx) | | | | Reconstructive | [place], | | | | | Services at [facility] | [place] [address] | | | | | [address] | [phone] | | | | | Mailcode: CH5E | | | | | | [facility] | | | | | | and Healing, | | | | | | [address] | | | | | | [place], [place] | | | | | | [address] | | | | | | [phone] | | | +--------+---------+ + + + [...] encounter Progress Notes Virgilio Buck MD - 07/05/2008 9:37 AM PDTClinic: Facial Plastic and Reconstructive Surgery Cl rosalba Upton is a 47 y.o. female who returns for followup one day out from repair of se ptal perforation with bilateral advancement septal flaps and AlloDerm interposition graft. Her procedure went well and she is doing well today. My examination confirms satisfactory h ealing process. I sprayed her nose with the usual topical and gently suctioned some dried b lood. She is able to breathe a bit with some congestion, to be expected. Her pain level is medium today and is well-controlled. All questions were answered today. Continued irrigat ion encouraged. Followup arranged for next week for splint removal. Virgilio Buck MD FACS Professor Facial Plastic and Reconstructive Surgery Dept. of Otolaryngology/Head and Neck Surgery [facility] tel fax email [email or web address] documented in this encounte r Plan of Treatment Not on filedocumented as of this encounter Visit Diagnoses + + | Diagnosis | + + | Perforation of nasal septum - Primary Other diseases of nasal cavity and sinuses | + + documented in this encounter"
--- OUTSIDE RECORDS SUMMARY | ~2019-06-06 | XMS | Encounter Summary ---
Demographics + + + | Address | [address] | | | [place] [address] | + + + | Home Phone | | + + + | Preferred Language | Unknown | + + + | Marital Status | | + + + | Methodist Affiliation | Unknown | + + + | Race | Unknown | + + + | Ethnic Group | Unknown | + + + Author + + + | Author | [facility] | | | and Eduardoana | + + + | Organization | [facility] | | | and [place] | + + + | Address | Unknown | + + + | Phone | Unavailable | + + + Support + + + + + | Name | Relationship | Address | Phone | + + + + + | Poncho Oquendo | ECON | [address] | | | | | [place] | | | | | [address] | | + + + + + | Marta Upton | ECON | [place] | | | | | [address] | | + + + + + Care Team Providers + +------+ + | Care Grievance Manager Name | Role | Phone | [...] 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, | [address] [place]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 | MD [address] | [place], | | | | | (HCC) | [address] | [place] [address] | | | | | Procedures | [place], | Phone: | | | | | [place] | [place] [address] | [phone] | | | | | DIPHENHYDRAM | Phone: | Fax: | | | | | INE HCL | [phone] | [phone] | | | | | [address], [address] | Fax: | | | | | | [place] | [phone] | | | | | | ONDANSETRON [...] | | | | | | INJ | | | | | | | FILGRASTIM | | | | | | | GCSF | | | | | | | BIOSIMIL [place] | | | | | | [...] | +--------+ + + + + | 05/21/ | Hospital | [facility] | Mathieu Langford | Gallbladder cancer, | | 2017 | Encounter | MED CTR CHE[facility] | MD Epifanio [address] | carcinoma (HCC) | | | | INFUSION [address] [place] | | | | | [place], | [place] [address] | | | | | [place] [address] | [phone] | | | | | [phone] | | | +--------+ + + + [...] + +---------+ + + | dexamethasone | Twice daily po for | | 0 | 04/02/19 | | | (DECADRON) 4 mg | two days after | | | 17 | 7 | | tablet | chemotherapy | | | | | | | treatment. | | | | | + + [...] + +---------+ + + | ondansetron | take 1 tablet by | | 0 | 04/02/19 | | | (ZOFRAN) 4 mg tablet | mouth twice a day | | | 17 | 7 | | | for 2 days AFTER | | | | | | | CHEMO | | | | | + + + +---------+ + + | polyethylene | Take 17 g by mouth | | 0 | | | | glycol (MIRALAX) | as needed. | | | | 7 | | packet | | | | [...] [address] | | | | | | [place] [address] | | | | | | [phone] | | | | | | | | +--------+---------+ + + + documented as of this encounter Visit Diagnoses + + | Diagnosis | + + | Gallbladder cancer, carcinoma (HCC) Malignant neoplasm of gallbladder | + + documented in this encounter Administered Medications + +---------+ +-------+-------+------+ | Medication Order | MAR | Action | Dose | Rate | Site | | | Action | Date | | | | + +---------+ +-------+-------+------+ | CISplatin (PLATINOL) 31 mg in | New Bag | 05/22/19 | 31 mg | 531 | | | sodium chloride 0.9% 500 mL chemo | | 17 10:29 | | mL/hr | | | infusion 31 mg (rounded from | | AM PDT | | | | | 31.2 mg = 16 mg/m2 | | | | | | | 1.95 m2 Treatment plan recorded | | | | | | | BSA), Intravenous, Administer | | | | | | | over 1 Hours, ONCE, 05/21/16 at | | | | | | | 1015, For 1 dose, Chemotherapy: | | | | | | | This is a high risk medication. | | | | | | | Vesicant. Protect from light., | | | | | | + +---------+ +-------+-------+------+ +---+---+ | | | +---+---+ + +-------+ +-------+---+---+ | diphenhydrAMINE (BENADRYL) | Given | 05/22/19 | 25 mg | | | | injection 25 mg 25 mg, | | 17 9:39 | | | | | Intravenous, ONCE, 05/21/16 at | | AM PDT | | | | | 0945, For 1 dose | | | | | | + +-------+ +-------+---+---+ +---+---+ | | | +---+---+ + +---------+ +--------+-------+---+ | fosaprepitant (EMEND) 150 mg in | New Bag | 05/22/19 | 150 mg | 450 | | | sodium chloride 0.9% 150 mL IVPB | | 17 10:04 | | mL/hr | | | 150 mg, Intravenous, Administer | | AM PDT | | | | | over 20 Minutes, ONCE, Tue | | | | | | | 05/21/16 at 0945, For 1 dose, Do | | | | | | | not shake bag. Administer prior | | | | | | | to chemotherapy., | | | | | | + +---------+ +--------+-------+---+ +---+---+ | | | +---+---+ + +---------+ + +-------+---+ | gemcitabine (GEMZAR) 1,248 mg | New Bag | 05/22/19 | 1,248 mg | 500 | | | in sodium chloride 0.9% 217.16 mL | | 17 11:36 | | mL/hr | | | chemo infusion 1,248 mg (640 | | AM PDT | | | | | mg/m2 | | | | | | | 1.95 m2 Treatment plan recorded | | | | | | | BSA), Intravenous, Administer | | | | | | | over 30 Minutes, ONCE, Tue05/21/16 | | | | | | | at 1115, For 1 dose, | | | | | | | Chemotherapy: This is a high risk | | | | | | | medication. Do not refrigerate., | | | | | | | | | | | | | + +---------+ + +-------+---+ +---+---+ | | | +---+---+ + +-------+ +-------+---+---+ | heparin 100 units/mL flush | Given | 05/22/19 | 500 | | | | injection 500 Units 500 Units (5 | | 17 12:12 | Units | | | | mL), Intracatheter, PRN, Line | | PM PDT | | | | | Care, Starting Tue05/21/16 at | | | | | | | 0920, , | | | | | | + +-------+ +-------+---+---+ +---+---+ | | | +---+---+ + +---------+ +---+-------+---+ | ondansetron (ZOFRAN) 8 mg, | New Bag | 05/22/19 | | 204 | | | dexamethasone (DECADRON) 4 mg in | | 17 9:43 | | mL/hr | | | sodium chloride 0.9% 50 mL IVPB | | AM PDT | | | | | Intravenous, Administer over 16 | | | | | | | Minutes, ONCE, 05/21/16 at | | | | | | | 0945, For 1 dose, Administer | | | | | | | prior to chemotherapy., | | | | | | + +---------+ +---+-------+---+ +---+---+ | | | +---+---+ documented in this encounter"
--- OUTSIDE RECORDS SUMMARY | ~2019-06-06 | XMS | Encounter Summary ---
Demographics + + + | Address | [address] | | | [place] [address] | + + + | Home Phone | | + + + | Preferred Language | Unknown | + + + | Marital Status | Single | + + + | Denominational Affiliation | NON | + + + | Race | White | + + + | Ethnic Group | Not or | + + + Author + + + | Author | [facility] | + + + | Organization | [facility] | + + + | Address [...] Team Providers + +------+ + | Care Client Service And Consulting Manager Name | Role | Phone | + +------+ + | Tomasa Wagner | PCP | | + +------+ + Reason for Visit + + + | Reason | Comments | + + + | Questionnaire | distress | + + + | Questionnaire | | + + + Encounter Details +--------+ + + + + | Date | Type | Department | Care Team | Description | +--------+ + + + + | 06/26/ | Documentati | [facility] | Elva Grey, | Questionnaire | | 2015 | on | Clinics at S | [address] | (distress); | | | | [facility] | [address] | Questionnaire | | | | for Health and | [facility] [place] [address] | | | | | Healing [address] | [phone] | | | | | [place], | | | | | | [place] [address] | | | | | | [phone] | | | +--------+ + + + [...]
--- OUTSIDE RECORDS SUMMARY | ~2019-06-06 | XMS | Encounter Summary ---
Demographics + + + | Address | [address] | | | [place] [address] | + + + | Home Phone [...] Team Providers + +------+ + | Care Gasket Notcher Name | Role | Phone | + [...] | | | Reconstructive | Velma Whitfield [place], | | | | | Services at [facility] | [place] [address] | | | | | [address] | [phone] | | | | | Mailcode: [facility] | | | | | | [facility] | | | | | | and Healing, | | | | | | Building , | | | | | | [place], [place] | | | | | | [address] | | | | | | [phone] | | | +--------+ + + + [...]
--- OUTSIDE RECORDS SUMMARY | ~2019-06-06 | XMS | Encounter Summary ---
Demographics + + + | Address | [address] | | | [place] [address] | + + + | Home Phone [...] | Author | [facility] | | | and [place] | + + + | Organization | [facility] | | | and [place] | + + + | Address | Unknown | + + + | Phone | Unavailable | + + + Support + + + + + | Name | Relationship | Address | Phone | + + + + + | Poncho Oquendo | ECON | [address] | | | | | [facility] [place] | | | | | [address] | | + + + + + | Marta Upton | ECON | [place], [place] | | | | | [address] | | + + + + + Care Team Providers + +------+ + | Care Technical Support Engineer Name | Role | Phone | + +------+ + | No, Physician | PCP | Unavailable | + +------+ + Encounter Details +--------+ + + + + | Date | Type | Department | Care Team | Description | +--------+ + + + + | 04/26/ | Anesthesia | [facility] | [place] | | | 2019 | Event | REGIONAL SURGERY | [address] | | | | | CENTER INTRA OP | [address] | | | | | [address] | [place] [address] | | | | | [place], [place] | [phone] | | | | | [address] | | | | | | [phone] | | | +--------+ + + + [...] + + + | Wound | 11/29/18; 142; Incision; groin | 11/29/181426 by | | | | | Sugar Chase RN | | +--------+ + + + | Periph | 04/27/19; 09; Left; Lateral; | 04/27/19 09 by | 04/27/19 1053 by | | eral | Forearm; dteq-rnv-icyzrh catheter | Jamila Aguila, | Cindy Casarez RN | | IV | system; 20 gauge; no longer | RN | | | | indicated; expected removal post | | | | | discharge; 04/27/19; 1053 | | | +--------+ + + + | Airway | Placement Date: 04/27/19; | 04/27/19957 by | 04/27/19 1013 by | | | Placement Time: 957 (created via | [place] | [place] | | | procedure documentation); Mask [address] | | | | | | [place] [address] | | | | | | [phone] | | | | | | | [...] | | | | | | Starting 04/27/19 at 0916, For | | | | [...] 9:45 | | | | | Starting Tue04/27/19 at 0945, | | AM PDT | [...]
--- OUTSIDE RECORDS SUMMARY | ~2019-06-06 | XMS | Encounter Summary ---
Demographics + + + | Address | [address] | | | [place] [address] | + + + | Home Phone [...] + + + | Author | [facility] | + + + | Organization | [facility] | + + + | Address [...] Team Providers + +------+ + | Care Sugar Grinder Name | Role | Phone | + +------+ + | Tomasa Wagner | PCP | | + +------+ + Reason for Visit + + + | Reason | Comments | + + + | Medical Records | [facility] - OUTSIDE RECORDS 06/24/14 Bookmarked Document (notes, labs, | | Review | imaging) | + + + Encounter Details +--------+ + + + + | Date | Type | Department | Care Team | Description | +--------+ + + + + | 06/25/ | Abstract | Dig[facility]ive [facility] | Tai Stanton, | Medical Records | | 2015 | | Center at [facility] [address] | MD [address] | Review ([facility] - | | | | [facility] | [facility] | OUTSIDE RECORDS | | | | for Health and | [place], [place] | 06/24/14 Bookmarked | | | | [facility] 2 | [address] | Document (notes, | | | | [place], [place] | [phone] | labs, imaging)) | | | | [address] | | | | | | [phone] | | | +--------+ + + + [...]
--- OUTSIDE RECORDS SUMMARY | ~2019-06-06 | XMS | Encounter Summary ---
Demographics + + + | Address | [address] | | | [place] [address] | + + + | Home Phone | | + + + | Preferred Language | Unknown | + + + | Marital Status | | + + + | Latter-Day Affiliation | Unknown | + + + | Race | Unknown | + + + | Ethnic Group | Unknown | + + + Author + + + | Author | [facility] | | | and [place] | + + + | Organization | [facility] | | | and [place] | + + + | Address | Unknown | + + + | Phone | Unavailable | + + + Support + + + + + | Name | Relationship | Address | Phone | + + + + + | Poncho qOuendo | ECON | [address] | | | | | [place] | | | | | [address] | | + + + + + | Marta Upton | ECON | [place] | | | | | [address] | | + + + + + Care Team Providers + +------+ + | Care Cigar Head Perforator Name | Role | Phone | + +------+ + | Valeriy Carmona DO | PCP | | + +------+ + Reason for Referral Evaluate & Treat (Routine) +--------+ + + + + + | Status | Reason | Specialty | Diagnoses / | Referred By | Referred To | | | | | Procedures | Contact | Contact | +--------+ + + + + + | Closed | Specialty | Nutrition | Diagnoses | [facility] | | | Services | | | Infusion | Nutrition | | | Required | | Cholangiocar | [address] | Services [address] | | | | | cinoma (HCC) | [place] [address] | | | | | | [place], [place] | [place], | | | | | | [address] | [place] [address] | | | | | | Phone: | Phone: | | | | | | [phone] | [phone] | | | | | | Fax: | Fax: | | | | | | [phone] | [phone] | +--------+ + + + + + Encounter Details +--------+ + + + + | Date | Type | Department | Care Team | Description | +--------+ + + + + | 07/02/ | Orders Only | [facility] | Marcelina Johnson, | Cholangiocarcinoma | | 2014 | | MED [facility] CHEMO | RN | (HCC) (Primary Dx) | | | | INFUSION [address] | | | | | | [place], | | | | | | [place] [address] | | | | | | [phone] | | | +--------+ + + + [...] | Visit | | DO [address] | | | | | | [place] [address] | | | | | | [phone] | | | | | | | | +--------+---------+ + + + + + +--------+ + + | Name | Type | Priori | Associated Diagnoses | Order Schedule | | | | ty | | | + + +--------+ + + | Ambulatory referral | Outpatient | Routin | Cholangiocarcinoma | Ordered: 07/02/2014 | | to Nutrition | Referral | e | ([facility]) | | | Services | | | | | + + +--------+ + + documented as of this encounter Visit Diagnoses + + | Diagnosis | + + | 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
--- OUTSIDE RECORDS SUMMARY | ~2019-06-06 | XMS | Encounter Summary ---
Demographics + + + | Address | [address] | | | [place] [address] | + + + | Home Phone [...] Team Providers + +------+ + | Care Plant Control Aide Name | Role | Phone | + +------+ + | Valeriy Carmona MD | PCP | | + +------+ + Reason for Visit + + + | Reason | Comments | + + + | Telephone follow-up | Pt requested reports be sent to outside | + + + Encounter Details +--------+ + + + + | Date | Type | Department | Care Team | Description | +--------+ + + + + | 05/10/ | Telephone | Dig[facility]ive Health | Tai Stanton, | Telephone follow-up | | 2012 | | Center at [facility] [address] | [address] | (Pt requested | | | | [address] [facility] | [facility] | reports be sent to | | | | [facility] and | [place], [place] | outside ) | | | | [facility] 2 | [address] | | | | | [place], [place] | [phone] | | | | | [address] | | | | | | [phone] | | | +--------+ + + + [...]
--- OUTSIDE RECORDS SUMMARY | ~2019-06-06 | XMS | Encounter Summary ---
Demographics + + + | Address | [address] | | | [place] [address] | + + + | Home Phone [...] Providers + +------+ + | Care Manager Of Corporate Communications Name | Role | Phone | + +------+ + | Valeriy Carmona MD | PCP | | + +------+ + Encounter Details +--------+ + + + + | Date | Type | Department | Care Team | Description | +--------+ + + + + | 12/27/ | Pharmacy | Outpatient Retail | | | | 2017 | Visit | [facility] | | | | | | [address] | | | | | | [place], [place] | | | | | | [address] | | | | | | [phone] | | | +--------+ + + + [...] + + documented as of this encounter Functional Status + + + + | Functional Status | Response | Date of Assessment | + + + + | Because of a physical, mental, or emotional | No | 12/25/2017 | | condition, do you have serious difficulty | | | | doing errands alone such as visiting the | | | | doctor? | | | + + + + + + + + | Cognitive Status | Response | Date of Assessment | + + + + | Because of a physical, mental, or emotional | No | 12/25/2017 | | condition, do you have serious difficulty | | | | concentrating, remembering, or making | | | | decisions? (5 years old or older) | | | + + + + documented as of this encounter Plan of Treatment Not on filedocumented as of this encounter Visit Diagnoses Not on filedocumented in this encounter"
--- OUTSIDE RECORDS SUMMARY | ~2019-06-06 | XMS | Encounter Summary ---
Demographics + + + | Address | [address] | | | [place] [address] | + + + | Home Phone [...] Providers + +------+ + | Care Machine Shop Repair Technician Name | Role | Phone | + +------+ + PCP | Unavailable | + +------+ + Encounter Details +--------+ + + + + | Date | Type | Department | Care Team | Description | +--------+ + + + + | 04/07/ | Abstract | Dig[facility]ive Health | Tai Stanton, | | | 2012 | | Center [place] [address] [address] | [address] | | | | | [address] [facility] | [facility] | | | | | for Health and | [place], [place] | | | | | [facility], [facility] 2 | [address] | | | | | [place], [place] | [phone] | | | | | [address] | | | | | | [phone] | | | +--------+ + + + [...]
--- OUTSIDE RECORDS SUMMARY | ~2019-06-06 | XMS | Encounter Summary ---
Demographics + + + | Address | [address] | | | [place] [address] | + + + | Home Phone [...] Team Providers + +------+ + | Care Senior Contracts Administrator Name | Role | Phone | + +------+ + | Tomasa Wagner | PCP | | + +------+ + Encounter Details +--------+ + + + + | Date | Type | Department | Care Team | Description | +--------+ + + + + | 07/11/ | Abstract | Dig[facility]ive Health | Tai Stanton, | | | 2012 | | Center at [facility] [address] | [address] | | | | | [address] [facility] | [facility] | | | | | for Health and | [place], [place] | | | | | [facility], [place] [address] | [address] | | | | | [place], [place] | [phone] | | | | | [address] | | | | | | [phone] | | | +--------+ + + + [...]
--- OUTSIDE RECORDS SUMMARY | ~2019-06-06 | XMS | Encounter Summary ---
Demographics + + + | Address | [address] | | | [place] [address] | + + + | Home Phone | | + + + | Preferred Language | Unknown | + + + | Marital Status | Single | + + + | Anglican Affiliation | NON | + + + [...] Team Providers + +------+ + | Care Abap Developer Name | Role | Phone | [...] | Closed | | | | | Chh1 Short | | | | | | | Stay [address] | | | | | | | [address] | | | | | | | Mailcode: [facility] | | | | | | | [facility] | | [facility] | | | | | | | [facility], | | | | | | | Building [address] | | | | | | | [place], [place] | | | | | | | [address] | | | | | | | Phone: | | | | | | | [phone] | | | | | | | Fax: | | | | | | | [phone] | +--------+--------+ + + + + Encounter Details +--------+ + + + + | Date | Type | Department | Care Team | Description | +--------+ + + + + | 07/04/ | Hospital | [facility] | Virgilio Esquivel MD | | | 2008 | Encounter | STAY [address] | [address] | | | | | [place] Mailcode: [facility] | [address] [place], | | | | | [facility] | [place] [address] | | | | | Health and Healing, | [phone] | | | | | [facility] [address] | | | | | | [place], [place] | | | | | | [address] | | | | | | [phone] | | | +--------+ + + + [...] + + + | Blood Pressure | 119/61 | 07/04/2008 2:00 PM | | | | | PDT | | + + + + + | Pulse | 99 | 07/04/2008 2:00 PM | | | | | PDT | | + + + + + | Temperature | 37.4 C (99.3 F) | 07/04/2008 1:15 PM | | | | | PDT | | + + + + + | Respiratory Rate | 12 | 07/04/2008 2:00 PM | | | | | PDT | | + + + + + | Oxygen Saturation | 97% | 07/04/2008 2:00 PM | | | | | PDT | | + + + + + | Inhaled Oxygen | - | - | | | Concentration | | | | + + + + + | Weight | 76 kg (167 lb 8.8 | 07/04/2008 8:40 AM | | | | oz) | PDT | | + + + + + | Height | 162.6 cm (5' 4") | 07/04/2008 8:40 AM | | | | | PDT | | + + + + + | Body Mass Index | 28.76 | 07/04/2008 8:40 AM | | | | | PDT | | + + + + + documented in this encounter Discharge Summaries Yamila Benitez - 07/04/2008 3:01 PM PDT documented in this encounter Discharge Instructions Instructions Reva Rubalcava - 07/04/2008 Nursing Discharg e Instructions General discharge instructions for same-day procedure patients: Do not stay alone; a responsible person should be with you. Do not drive or drink alcohol for 24 hours or while on narcotic pain medication. Do not make any important personal or business decisions for 24 hours or while on narcotic pain medication. Advance diet to regular if no nausea. Eat lightly and avoid large, high fat or highly spic ed meals for 24-48 hours. IV site care instructions: Monitor IV site for pain, redness, swelling or drainage. If present, call your physician i mmediately. Minor redness and tenderness may be treated with warm, moist compresses for 24-48 hours. I f still red and tender after this, notify your physician. Call your provider if you experience: Difficulty breathing or unusual shortness of breath Persistent nausea or vomiting Excessive bleeding, drainage at the operative site Fever of 101 or greater, chills, increased pain that is not relieved by pain medication. Last oral pain medication:Percocet taken at 2:15PM Home care instructions: POST OP INSTRUCTIONS AFTER FACIAL SURGERY DR ESQUIVEL Home care after Nose Surgery Follow-up appointment: FOLLOW UP WITH DR ESQUIVEL SCHEDULED (Tomorrow) documented in this encounter Plan of Treatment Not on filedocumented as of this encounter Procedures + +--------+ + + + | Procedure Name | Priori | Date/Time | Associated Diagnosis | Comments | | | ty | | | | + +--------+ + + + | ANESTHESIA/SEDATION | | 07/04/2008 | | Results for this | | | | 3:01 PM | | procedure are in the | | | | PDT | | results section. | + +--------+ + + + | ANESTHESIA/SEDATION | | 07/04/2008 | | Results for this | | | | 3:01 PM | | procedure are in the | | | | PDT | | results section. | + +--------+ + + + | ORDERS OTHER | | 07/04/2008 | | Results for this | | | | 3:01 PM | | procedure are in the | | | | PDT | | results section. | + +--------+ + + + | TEACHING PHYSICIAN | | 07/04/2008 | | Results for this | | | | 12:00 AM | | procedure are in the | | | | PDT | | results section. | + +--------+ + + + | OPERATION RECORD | | 07/04/2008 | | Results for this | | | | 12:00 AM | | procedure are in the | | | | PDT | | results section. | + +--------+ + + + documented in this encounter Results ANESTHESIA/SEDATION (07/04/2008 3:01 PM PDT) + + + | Narrative | Performed At | + + + | | | + + + + + | Procedure Note | + + | Eli, Faculty - 07/04/2008 3:01 PM PDT | + + ANESTHESIA/SEDATION (07/04/2008 3:01 PM PDT) + + + | Narrative | Performed At | + + + | | | + + + + + | Procedure Note | + + | Other, Faculty - 07/04/2008 3:01 PM PDT | + + ORDERS OTHER (07/04/2008 3:01 PM PDT) + + + | Narrative | Performed At | + + + | | | + + + + + | Procedure Note | + + | Eli Faculty - 07/04/2008 3:01 PM PDT | + + OPERATION RECORD (07/04/2008 12:00 AM PDT) + + + | Narrative | Performed At | + + + | [id number] | | | [id number] | | | [id number] [facility] [id number] | | | Date: 07/04/2008 Attending Surgeon: | | | Virgilio Esquivel M.D. Fancy Wire Drawer(s): | | | Prudencio Fay MD Preoperative | | | Diagnosis(es): Septal perforation, 12 x 10 mm. Postoperative | | | Diagnosis(es): Septal perforation, 12 x 10 mm. Procedures | | | Performed: Septal perforation repair with acellular dermal graft | | | measuring 18 x 15 mm. Indications: Ms. Upton is a | | | 47-year-old female with a history of septal perforation | | | as a result of previous septoplasty and sinus surgery. She | | | complained of worsening crusting and nasal drainage with occasional | | | bleeding. As such, she sought operative repair after the | | | operative risks and benefits as well as alternatives were presented | | | to her. The alternatives mainly being septal button placement. | | | The patient elected to proceed with the operation and signed an | | | informed consent electing to proceed. A PARQ session was held | | | with Dr. Jacobsen, and all additional questions were answered. | | | Procedure: Ms. Upton was brought back to the operating room and | | | laid supine on the operating room table. General anesthesia was | | | induced and she was intubated without difficulty. The tube was | | | then secured and she was turned 90 degrees towards the surgeon. | | | At that time, 4% cocaine pledgets were then inserted into the | | | nose. A 50:50 mixture of 1% lidocaine with 1:100,000 epinephrine | | | and 0.5% Marcaine with 1:100,000 epinephrine was infiltrated into | | | the nasal base and underneath the soft tissue skin envelope. The | | | bilateral septal mucoperichondrial flaps were also injected. | | | Approximately 60 mL of local anesthesia was used for this purpose. | | | The patient was then prepped and draped in a sterile fashion. | | | At that time, an operative pause was performed and all in | | | attendance agreed to commence the operation. A transcolumellar | | | incision was marked with a marking pen in an inverted-V fashion. | | | A #15 blade was used to make bilateral marginal incisions and the | | | inverted-V transcolumellar incisions. Scissor dissection was used | | | to elevate the columellar portion of this skin flap. Subsequent | | | 3-point fixation was used to elevate the soft tissue skin envelope | | | in a subnasal SMAS plane off the underlying lower lateral | | | cartilages. Additional elevation of the soft tissue skin envelope | | | was done up to the level of the rhinion. Hemostasis was then | | | achieved. The bilateral lower cartilages were grasped and scissor | | | dissection was used to separate them in the midline. This | | | enabled dissection down to the level of the caudal portion of the | | | anterior septal angle. The left side was approached initially. | | | A #15 blade was used to score the cartilage on the left side, and | | | a Zortman was used to elevate the left mucoperichondrial flap. This | | | was elevated above and below the level of the perforation and was | | | taken past the bony cartilaginous junction superiorly and | | | inferiorly. In order to gain additional exposure, the right side | | | was approached in a similar fashion. Cartilaginous scoring was | | | performed with a #15 blade followed by Zortman elevation of | | | mucoperichondrial flap. The portions of mucosa surrounding the | | | perforation were then incised with a Zortman. Additional mobilization | | | of the bilateral mucoperichondrial mucoperiosteal flaps was | | | performed into the floor of the nose inferiorly and laterally | | | toward the inferior turbinate. This was performed on both sides | | | while keeping the flaps intact. Adequate mobilization at that point | | | was not achieved, and therefore, bilateral releasing incisions | | | were made laterally underneath the respective inferior turbinates | | | and carried superficially out towards the nasal sill. Once again, | | | mobilization of the flaps was not adequate for closure, and | | | therefore, dorsally based incision near the junction of the upper | | | lateral cartilage and septum were performed for superior release. | | | This enabled closure of both sides with minimal tension. Closure | | | was achieved on the right side first with multiple interrupted 5-0 | | | interrupted chromic gut sutures. This was also performed on the | | | left side. Once closure of both sides of the perforation was done, | | | the AlloDerm was cut to size and placed between both closed suture | | | lines. At that point, the bilateral medial crura were | | | reapproximated to one another with 4-0 plain gut suture. Two such | | | sutures were placed. An additional bilateral mucosal apposition | | | stitch was placed in order to support the lower lateral cartilages | | | onto the anterior septal angle of the septum. The soft tissue | | | skin envelope was then redraped over the underlying framework and the | | | transcolumellar incision was reapproximated with multiple | | | interrupted 6-0 fast-absorbing gut sutures. Closure of the | | | bilateral marginal incisions was done with 5-0 chromic gut in an | | | interrupted fashion. Subsequently, a 4-0 Vicryl Rapide was used to | | | perform a quilting mattress suture bringing together the | | | mucoperichondrial layers. Bilateral Telfa packs were placed, and the | | | patient underwent a standard dressing with Mastisol, micropore | | | tape, and Aquaplast. The patient tolerated the procedure well and | | | was sent to recovery room in good condition. Dr. Jacobsen was | | | present during the procedure and directed the critical portions of | | | the case. MD Virgilio Sultana | | | Frank Esquivel. Facial Plastic and Reconstructive Surgery [facility] / HS | | | [id number] / [id number] / [id number] / | | | | | + + + + + | Procedure Note | + + | Prudencio Fay MD - 07/04/2008 12:00 AM PDT [id number] | | [id number] [facility] | | [place] [id number] Date: 07/04/2008 Attending Surgeon: | | Virgilio Esquivel M.D. Fancy Wire Drawer(s): Prudencio Fay MD | | Preoperative Diagnosis(es):Septal perforation, 12 x 10 mm. Postoperative | | Diagnosis(es):Septal perforation, 12 x 10 mm. Procedures Performed:Septal perforation | | repair with acellular dermal graft measuring 18 x 15mm. Indications:Ms. Upton is a | | 47-year-old female with a history of septalperforation as a result of previous | | septoplasty and sinus surgery. Shecomplained of worsening crusting and nasal drainage | | with occasionalbleeding. As such, she sought operative repair after the operative | | risksand benefits as well as alternatives were presented to her. Thealternatives mainly | | being septal button placement. The patient elected toproceed with the operation and | | signed an informed consent electing toproceed. A PARQ session was held with Dr. Jacobsen, | | and all additionalquestions were answered. Procedure:Ms. Upton was brought back to | | the operating room and laid supine on theoperating room table. General anesthesia was | | induced and she was intubatedwithout difficulty. The tube was then secured and she was | | turned 90degrees towards the surgeon. At that time, 4% cocaine pledgets were | | theninserted into the nose. A 50:50 mixture of 1% lidocaine with1:100,000 epinephrine | | and 0.5% Marcaine with 1:100,000 epinephrine wasinfiltrated into the nasal base and | | underneath the soft tissue skinenvelope. The bilateral septal mucoperichondrial flaps | | were also injected.Approximately 60 mL of local anesthesia was used for this purpose. | | Thepatient was then prepped and draped in a sterile fashion. At that time, an operative | | pause was performed and all in attendance agreedto commence the operation. A | | transcolumellar incision was marked with amarking pen in an inverted-V fashion. A #15 | | blade was used to makebilateral marginal incisions and the inverted-V transcolumellar | | incisions.Scissor dissection was used to elevate the columellar portion of this | | skinflap. Subsequent 3-point fixation was used to elevate the soft tissue skinenvelope | | in a subnasal SMAS plane off the underlying lower lateralcartilages. Additional | | elevation of the soft tissue skin envelope was doneup to the level of the rhinion. | | Hemostasis was then achieved. Thebilateral lower cartilages were grasped and scissor | | dissection was used toseparate them in the midline. This enabled dissection down to the | | level ofthe caudal portion of the anterior septal angle. The left side wasapproached | | initially. A #15 blade was used to score the cartilage on theleft side, and a Zortman was | | used to elevate the left mucoperichondrial flap.This was elevated above and below the | | level of the perforation and wastaken past the bony cartilaginous junction superiorly | | and inferiorly. Inorder to gain additional exposure, the right side was approached in | | asimilar fashion. Cartilaginous scoring was performed with a #15 bladefollowed by Zortman | | elevation of mucoperichondrial flap. The portions ofmucosa surrounding the perforation | | were then incised with a Zortman.Additional mobilization of the bilateral | | mucoperichondrial mucoperiostealflaps was performed into the floor of the nose | | inferiorly and laterallytoward the inferior turbinate. This was performed on both sides | | whilekeeping the flaps intact. Adequate mobilization at that point was notachieved, | | and therefore, bilateral releasing incisions were made laterallyunderneath the | | respective inferior turbinates and carried superficially outtowards the nasal sill. | | Once again, mobilization of the flaps was notadequate for closure, and therefore, | | dorsally based incision near thejunction of the upper lateral cartilage and septum were | | performed forsuperior release. This enabled closure of both sides with minimal | | tension.Closure was achieved on the right side first with multiple interrupted | | 5-0interrupted chromic gut sutures. This was also performed on the left side.Once | | closure of both sides of the perforation was done, the AlloDerm wascut to size and | | placed between both closed suture lines. At that point, the bilateral medial crura were | | reapproximated to oneanother with 4-0 plain gut suture. Two such sutures were placed. | | Anadditional bilateral mucosal apposition stitch was placed in order tosupport the | | lower lateral cartilages onto the anterior septal angle of [facility]. The soft tissue | | skin envelope was then redraped over theunderlying framework and the transcolumellar | | incision was reapproximatedwith multiple interrupted 6-0 fast-absorbing gut sutures. | | Closure of thebilateral marginal incisions was done with 5-0 chromic gut in | | aninterrupted fashion. Subsequently, a 4-0 Vicryl Rapide was used to performa quilting | | mattress suture bringing together the mucoperichondrial layers.Bilateral Telfa packs | | were placed, and the patient underwent a standarddressing with Mastisol, micropore tape, | | and Aquaplast. The patienttolerated the procedure well and was sent to recovery room | | in goodcondition. Dr. Jacobsen was present during the procedure and directed the | | criticalportions of the case. MD Virgilio Sultana M.D.Facial Plastic | | and Reconstructive Surgery [facility] / [id number] / [id number] / [id number] / T: 07/06/2008 | | | |approached initially. A #15 blade was used to score the cartilage on the | |left side, and a Zortman was used to elevate the left mucoperichondrial flap. | |This was elevated above and below the level of the perforation and was | |taken past the bony cartilaginous junction superiorly and inferiorly. In | |order to gain additional exposure, the right side was approached in a | |similar fashion. Cartilaginous scoring was performed with a #15 blade | |followed by Zortman elevation of mucoperichondrial flap. The portions of | |mucosa surrounding the perforation were then incised with a Zortman. | |Additional mobilization of the bilateral mucoperichondrial mucoperiosteal | |flaps was performed into the floor of the nose inferiorly and laterally | |toward the inferior turbinate. This was performed on both sides while | |keeping the flaps intact. Adequate mobilization at that point was not | |achieved, and therefore, bilateral releasing incisions were made laterally | |underneath the respective inferior turbinates and carried superficially out | |towards the nasal sill. Once again, mobilization of the flaps was not | |adequate for closure, and therefore, dorsally based incision near the | |junction of the upper lateral cartilage and septum were performed for | |superior release. This enabled closure of both sides with minimal tension. | |Closure was achieved on the right side first with multiple interrupted 5-0 | |interrupted chromic gut sutures. This was also performed on the left side. | |Once closure of both sides of the perforation was done, the AlloDerm was | |cut to size and placed between both closed suture lines. | | | | | |At that point, the bilateral medial crura were reapproximated to one | |another with 4-0 plain gut suture. Two such sutures were placed. An | |additional bilateral mucosal apposition stitch was placed in order to | |support the lower lateral cartilages onto the anterior septal angle of the | |septum. The soft tissue skin envelope was then redraped over the | |underlying framework and the transcolumellar incision was reapproximated | |with multiple interrupted 6-0 fast-absorbing gut sutures. Closure of the | |bilateral marginal incisions was done with 5-0 chromic gut in an | |interrupted fashion. Subsequently, a 4-0 Vicryl Rapide was used to perform | |a quilting mattress suture bringing together the mucoperichondrial layers. | |Bilateral Telfa packs were placed, and the patient underwent a standard | |dressing with Mastisol, micropore tape, and Aquaplast. The patient | |tolerated the procedure well and was sent to recovery room in good | |condition. | | | | | |Dr. Jacobsen was present during the procedure and directed the critical | |portions of the case. | | | | | | | | | |Prudencio Fay MD | | | | | | | | | | | | | |Virgilio Esquivel M.D. | |Facial Plastic and Reconstructive Surgery | | | | | |[facility] / HS | |[id number] / [id number] / [id number] / | | | | | | | | | | | | | | | | | | | | | + + TEACHING PHYSICIAN (07/04/2008 12:00 AM PDT) + + + | Narrative | Performed At | + + + | [id number] | | | [id number] | | | [id number] [facility] [id number] | | | Date: 07/04/2008 Attending Surgeon: | | | Virgilio Esquivel M.D. Fancy Wire Drawer(s): | | | Prudencio Fay MD Preoperative | | | Diagnosis(es): Nasal septal perforation, 1.1 cm. Postoperative | | | Diagnosis(es): Nasal septal perforation, 1.1 cm. Procedures | | | Performed: External rhinoplasty approach to repair of septal | | | perforation with placement of AlloDerm interpositional graft. | | | Specimens: No specimens. Complications: No complications. | | | This is to indicate that pursuant to federal Medicare | | | guidelines, I was present for the entire case. Virgilio Goodson | | | Frank Esquivel. Facial Plastic and Reconstructive Surgery [facility] / HS | | | [id number] / [id number] / [id number] / | | | | | + + + + + | Procedure Note | + + | Virgilio Esquivel MD - 07/04/2008 12:00 AM PDT [id number] | | [id number] [facility] | | [place] [id number] Date: 07/04/2008 Attending Surgeon: | | Virgilio Esquivel M.D. Fancy Wire Drawer(s): Prudencio Fay MD | | Preoperative Diagnosis(es):Nasal septal perforation, 1.1 cm. Postoperative | | Diagnosis(es):Nasal septal perforation, 1.1 cm. Procedures Performed:External | | rhinoplasty approach to repair of septal perforation withplacement of AlloDerm | | interpositional graft. Specimens:No specimens. Complications:No complications. This | | is to indicate that pursuant to federal Medicare guidelines, I waspresent for the entire | | case. Virgilio Esquivel M.D.Facial Plastic and Reconstructive Surgery [facility] / [id number] / | | [id number] / [id number] / T: 07/04/2008 | | | | | |Preoperative Diagnosis(es): | |Nasal septal perforation, 1.1 cm. | | | | | |Postoperative Diagnosis(es): | |Nasal septal perforation, 1.1 cm. | | | | | |Procedures Performed: | |External rhinoplasty approach to repair of septal perforation with | |placement of AlloDerm interpositional graft. | | | | | |Specimens: | |No specimens. | | | | | |Complications: | |No complications. | | | | | |This is to indicate that pursuant to federal Medicare guidelines, I was | |present for the entire case. | | | | | | | | | |Virgilio Esquivel M.D. | |Facial Plastic and Reconstructive Surgery | | | | | |[facility] / HS | |[id number] / [id number] / [id number] / | | | | | | | | | | | | | | | | | | | | | + + documented in this encounter Visit Diagnoses Not on filedocumented in this encounter
--- OUTSIDE RECORDS SUMMARY | ~2019-06-06 | XMS | Encounter Summary ---
Demographics + + + | Address | [address] | | | [place] [address] | + + + | Home Phone | | + + + | Preferred Language | Unknown | + + + | Marital Status | | + + + | Buddhism Affiliation | Unknown | + + + | Race | Unknown | + + + | Ethnic Group | Unknown | + + + Author + + + | Author | [facility] | | | and [place]ardo[place] | + + + | Organization | [facility] | | | and [place] | + + + | Address | Unknown | + + + | Phone | Unavailable | + + + Support + + + + + | Name | Relationship | Address | Phone | + + + + + | Poncho Oquendo | ECON | [address] | | | | | [place] | | | | | [address] | | + + + + + | Marta Upton | ECON | [place] | | | | | [address] | | + + + + + Care Team Providers + +------+ + | Care Group Director Experience Name | Role | Phone | + +------+ + | Valeriy Carmona DO | PCP | | + +------+ + Encounter Details +--------+ + + + + | Date | Type | Department | Care Team | Description | +--------+ + + + + | 03/05/ | Hospital | [facility] | Reinaldo, | Mass of breast, | | 2017 | Encounter | [facility] ULTRASOUND | Epifanio Soler MD [address] | right | | | | [address] [place] | [address] [place] | | | | | [place], [place] | [place] [address] | | | | | [address] | [phone] | | | | | [phone] | | | | | | | Ralph Hartman, | | | | | | Technologist | | +--------+ + + + + [...] [address] | | | | | | [place] [address] | | | | | | [phone] | | | | | | | | +--------+---------+ + + + documented as of this encounter Procedures + +--------+ + + + | Procedure Name | Priori | Date/Time | Associated Diagnosis | Comments | | | ty | | | | + +--------+ + + + | US BREAST LIMITED | Routin | 03/05/2016 | Mass of breast, | Results for this | | RIGHT | e | 1:42 PM | right | procedure are in the | | | | PST | | results section. | + +--------+ + + + documented in this encounter Results US Breast Limited Right (03/05/2016 1:42 PM PST) + + | Specimen | + + | | + + + + + | Narrative | Performed At | + + + | US BREAST LIMITED RIGHT 03/05/2016 1:00 PM EXAM: [facility] | [facility] | | DIAGNOSTIC RIGHT dated 03/05/2016 12:50 PM HISTORY:EVALUATE THE | | | STABILITY OF MAMMOGRAPHIC ASYMMETRIES AND A SMALL,. | | | TECHNIQUE: Unilateral digital CC and MLO. Shree synthesis is | | | performed. CAD utilized. COMPARISON: Mammograms dating back to | | | 2012 and 2015 FINDINGS: Scattered areas of fibroglandular | | | density are present. The pattern is stable. There are no areas of | | | developing architectural distortion. There are no distinct masses. | | | There are no suspicious clusters of microcalcifications. | | | Previously identified asymmetries in the mid and outer right breast | | | are unchanged and are without evidence of focal architectural | | | distortion or mass identified on Tomosynthesis imaging. Shree | | | images demonstrate no suspicious mass or architectural distortion. | | | Images were reviewed with CAD. ULTRASOUND RIGHT BREAST: Radial | | | and antiradial images were obtained of the right breast which | | | demonstrated no focal abnormality. Previously seen 2 mm cyst and 3.5 | | | mm oval circumscribed probably benign mass were not identified. No | | | suspicious pathology identified. IMPRESSION - BI-RADS CATEGORY | | | 2: BENIGN FINDINGS RECOMMENDATION: Normal annual screening | | | interval. Dictated and Signed by: Geremias Gutierres MD | | | Electronically signed: 03/05/2016 2:50 PM | | + + + + + | Procedure Note | + + | Edmundo, Rad Results In - 03/05/2016 2:53 PM PST US BREAST LIMITED RIGHT 03/05/2016 1:00 | | PMEXAM: [facility] DIAGNOST[facility] RIGHT dated 03/05/2016 12:50 PMHISTORY:EVALUATE THE | | STABILITY OF MAMMOGRAPHIC ASYMMETRIES AND A SMALL,. TECHNIQUE: Unilateral digital CC | | and MLO. Shree synthesis is performed. CADutilized.COMPARISON: Mammograms dating back | | to 2012 and 2016FINDINGS: Scattered areas of fibroglandular density are present. The | | patternis stable. There are no areas of developing architectural distortion. Thereare | | no distinct masses. There are no suspicious clusters ofmicrocalcifications. Previously | | identified asymmetries in the mid and outerright breast are unchanged and are without | | evidence of focal architecturaldistortion or mass identified on Tomosynthesis | | imaging.Shree images demonstrate no suspicious mass or architectural distortion. | | Imageswere reviewed with CAD.ULTRASOUND RIGHT BREAST: Radial and antiradial images were | | obtained of the rightbreast which demonstrated no focal abnormality. Previously seen 2 | | mm cyst and3.5 mm oval circumscribed probably benign mass were not identified. | | Nosuspicious pathology identified.IMPRESSION -BI-RADS CATEGORY 2: BENIGN | | FINDINGSRECOMMENDATION: Normal annual screening interval.Dictated and Signed by: Geremias | | MD Nenita Electronically signed: 03/05/2016 2:50 PM | |distortion or mass identified on Tomosynthesis imaging. | | | |Shree images demonstrate no suspicious mass or architectural distortion. Images | |were reviewed with CAD. | | | |ULTRASOUND RIGHT BREAST: Radial and antiradial images were obtained of the right | |breast which demonstrated no focal abnormality. Previously seen 2 mm cyst and | |3.5 mm oval circumscribed probably benign mass were not identified. No | |suspicious pathology identified. | | | |IMPRESSION - | | | |BI-RADS CATEGORY 2: BENIGN FINDINGS | | | |RECOMMENDATION: Normal annual screening interval. | | | |Dictated and Signed by: Geremias Gutierres MD | | Electronically signed: 03/05/2016 2:50 PM | + + + +---------+ + + | Performing | Address | City/State/Zipcode | Phone Number | | Organization | | | | + +---------+ + + | [facility] | | | | + +---------+ + + documented in this encounter Visit Diagnoses + + | Diagnosis | + + | Mass of breast, right Lump or mass in breast | + + documented in this encounter"
--- OUTSIDE RECORDS SUMMARY | ~2019-06-06 | XMS | Encounter Summary ---
Demographics + + + | Address | [address] | | | [place] [address] | + + + | Home Phone | | + + + | Preferred Language | Unknown | + + + | Marital Status | | + + + | Hinduism Affiliation | Unknown | + + + | Race | Unknown | + + + | Ethnic Group | Unknown | + + + Author + + + | Author | [facility] | | | and [place] | + + + | Organization | [facility] | | | and [place] | + + + | Address | Unknown | + + + | Phone | Unavailable | + + + Support + + + + + | Name | Relationship | Address | Phone | + + + + + | Poncho Oquendo | ECON | [address] | | | | | [place] | | | | | [address] | | + + + + + | Marta Upton | ECON | [place] | | | | | [address] | | + + + + + Care Team Providers + +------+ + | Care Dean Of Faculty Name | Role | Phone | + [...] | | | [facility] [address] | [facility] | | | | | [address] [facility] | [place] [address] | | | | | [place] [address] | [phone] | | | | | [phone] | | | +--------+ + + + [...] [address] | | | | | | [facility] [address] | | | | | | [phone] | | | | | | | | +--------+---------+ + + + documented as of this encounter Visit Diagnoses Not on filedocumented in this encounter"
--- OUTSIDE RECORDS SUMMARY | ~2019-06-06 | XMS | Encounter Summary ---
Demographics + + + | Address | [address] | | | [place] [address] | + + + | Home Phone [...] | Author | [facility] | | | and [place] | + + + | Organization | [facility] | | | and [place] | + + + | Address | Unknown | + + + | Phone | Unavailable | + + + Support + + + + + | Name | Relationship | Address | Phone | + + + + + | Poncho Oquendo | ECON | [address] | | | | | [place] [place] [place] | | | | | [address] | | + + + + + | Marta Upton | ECON | [place], [place] | | | | | [address] | | + + + + + Care Team Providers + +------+ + | Care Automobile Appraiser Name | Role | Phone | + +------+ + | No, Physician | PCP | Unavailable | + +------+ + Encounter Details +--------+ + + + + | Date | Type | Department | Care Team | Description | +--------+ + + + + | 04/22/ | Preadmit | [facility] | | | | 2019 | Visit | [facility] | | | | | | [facility]ION | | | | | | [facility] [address] | | | | | | [place] | | | | | | [address] | | | | | | [phone] | | | +--------+ + + + [...] [facility] | | | | | | [place] [address] | | | | | | [phone] | | | | | | | | +--------+---------+ + + + documented as of this encounter Visit Diagnoses Not on filedocumented in this encounter
--- OUTSIDE RECORDS SUMMARY | ~2019-06-06 | XMS | Encounter Summary ---
Demographics + + + | Address | [address] | | | [place] [address] | + + + | Home Phone | | + + + | Preferred Language | Unknown | + + + | Marital Status | Single | + + + | Advent Affiliation | NON | + + + [...] Team Providers + +------+ + | Care Disc Sander Name | Role | Phone | [...] | 2012 | Visit | [facility] [address] | [address] [facility] | carcinoma (HCC) | | | | [facility] | [address] | (Primary Dx) | | | | for Health and | [place], [place] | | | | | [facility], [facility] [address] | [address] | | | | | [place], [place] | [phone] | | | | | [address] | | | | | | [phone] | | | +--------+---------+ + + + [...] the resident s note. Tai Stanton M.D. [facility] ([facility]) Professor and Vice-Naval Aircrewman Tactical Helicopter of Surgery [employer] [facility] for Pancreatic Disease Research Pancreatic/ HepatoBiliary and Foregut Working Groups Mail Code [id number] [address] [place], [place]. [address] email: [email or web address] Gary Marrero MD - 05/17/2012 12:45 PM [...] probing. Packed with 1/4 in g auze. [place] removed, steristrips placed. Extremities: WWP, no significant [...] GARY DONOHUE MD General Surgery, R2 Pg. 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
--- OUTSIDE RECORDS SUMMARY | ~2019-06-06 | XMS | Encounter Summary ---
Demographics + + + | Address | [address] | | | [place] [address] | + + + | Home Phone | | + + + | Preferred Language | Unknown | + + + | Marital Status | | + + + | Faith Affiliation | Unknown | + + + | Race | Unknown | + + + | Ethnic Group | Unknown | + + + Author + + + | Author | [facility] | | | and [place] | + + + | Organization | [facility] | | | and [place] | + + + | Address | Unknown | + + + | Phone | Unavailable | + + + Support + + + + + | Name | Relationship | Address | Phone | + + + + + | Poncho Oquendo | ECON | [address] | | | | | [place] | | | | | [address] | | + + + + + | Marta Upton | ECON | [place] | | | | | [address] | | + + + + + Care Team Providers + +------+ + | Care Salt Miner Name | Role | Phone | + [...] + + | 08/07/ | Telephone | [facility] | Reinaldo, | Other | | 2014 | | [facility] | Epifanio Soler MD [address] | | | | | [facility] [address] | [facility] | | | | | [address] [facility] | [place] [address] | | | | | [place] [address] | [phone] | | | | | [phone] | | | +--------+ + + + [...] | | | | | [place] [address] | | | | | | [phone] | | | | | | | | +--------+---------+ + + + documented as of this encounter Visit Diagnoses Not on filedocumented in this encounter"
--- OUTSIDE RECORDS SUMMARY | ~2019-06-06 | XMS | Encounter Summary ---
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 Name | Role | Phone | [...] | +--------+ + + + + | 04/28/ | Hospital | [facility] [address] | Cornelia Knutson, | | | 2012 - | Encounter | [facility] Mailcode: | [address] | | | | | [id number] | [address] | | | 05/04/ | | [place], | [place], [place] | | | 2012 | | [place] [address] | [address] | | | | | [phone] | [phone] | | | | | | | [...] + + + | Blood Pressure | 122/72 | 05/04/2012 6:25 AM | | | | | PDT | | + + + + + | Pulse | 96 | 05/04/2012 6:25 AM | | | | | PDT | | + + + + + | Temperature | 36.9 C (98.4 F) | 05/04/2012 6:25 AM | | | | | PDT | | + + + + + | Respiratory Rate | 16 | 05/04/2012 6:25 AM | | | | | PDT | | + + + + + | Oxygen Saturation | 99% | 05/04/2012 6:25 AM | | | | | PDT | | + + + + + | Inhaled Oxygen | - | - | | | Concentration | | | | + + + + + | Weight | 87.9 kg (193 lb 12.6 | 05/04/2012 6:25 AM | | | | oz) | PDT | | + + + + + | Height | 162.6 cm (5' 4") | 04/29/2012 4:03 PM | | | | | PDT | | + + + + + | Body Mass Index | 33.26 | 04/29/2012 4:03 PM | | | | | PDT | | + + + + + documented in this encounter Discharge Summaries Marco Antonio Beatty NP - 05/04/2012 9:36 AM PDT INPATIENT DISCHARGE SUMMARY Author: MARCO ANTONIO BEATTY NP Attending Physician: Cornelia Knutson MD PCP: Prudencio Isaac MD Admission Date: 04/28/2012 Discharge Date: 04 May 2012 Diagnoses Principal Final Diagnosis: 1) *Gallbladder cancer Additional Diagnoses: 2) Post-operative pain Procedures 04/28/12: Diagnostic laparoscopy with biopsies, intraoperative ultrasound, partial segment 4B and 5 liver resection (gallbladder fossa with en bloc portal lymphadenectomy). Brief Hospital Course Ms. Upton is a 51-year-old woman with an incidental finding of T2 gallbladder adenocarci noma at her recent laparoscopic cholecystectomy for acute cholecystitis. Her pathology was reviewed at [facility]. She underwent a CT scan, which showed no evidence of residual or metastatic disease following her cholecyst ectomy. She was taken to the operating room on 04/28 for a diagnostic laparoscopy which did n ot reveal any evidence of metastatic disease therefore surgery proceeded to an open incision for liver resection and lymphadenectomy. She tolerated the procedure well, there were no op erative complications. Following surgery, she was transferred to the ICU for monitoring over night; only required fluids for low blood pressure, overall did well. She was transferred to the perkins on post-operative day #1. Pain was managed with an epidural until she was able to tolerate oral medications. Her bowel function slowly resumed and she is able to tolerate a r egular diet. She is able to ambulate and pain is well controlled. We will have her follow up on 05/[address] Knutson. At time of discharge we are also working on arranging an appointm ent with [facility] Oncology for treatment planning. FINAL PATHOLOGY: Final Pathologic Diagnosis: A: Right costal margin, [...] changes, negative for malignancy - Metastatic carcinoma present in two of two lymph nodes (2/2), with largest deposit 0.5 cm F: Gallbladder bed, resection: - Liver parenchyma with surgical site changes, negative for malignancy Case seen by: Tatyana Bello D.O./Surgical Pathology Fellow Maxime Salinas M.D./Pathologist Medications: Current Discharge Medication List START taking these medications Details acetaminophen 500 mg Oral tablet Take 1 Tab by mouth every four hours as needed for moderat e pain. gabapentin 300 mg Oral capsule Take 1 Cap by mouth three times daily. Indications: POSTOPER ATIVE ACUTE PAIN Qty: 42 Cap, Refills: 0 lidocaine 5 %(700 mg/patch) Topical Adhesive Patch, Medicated Apply 1 Patch to skin every t wenty-four hours. Apply patch to most painful area; Patch may remain in place for up to 12 h ours in any 24-hour period. Qty: 10 Patch, Refills: 0 ondansetron ODT 4 mg Oral tablet,disintegrating Take 1 Tab by mouth every twelve hours as n eeded. Qty: 12 Tab, Refills: 1 oxyCODONE, immediate release, 5 mg Oral tablet Take 1-4 Tabs by mouth every three hours as needed for severe pain. Qty: 250 Tab, Refills: 0 polyethylene glycol 17 gram/dose Oral Powder Take 17 g by mouth once daily. Qty: 119 g senna-docusate 8.6-50 mg Oral tablet Take 1 Tab by mouth two times daily. Stop taking if diaz ving loose bowel movements. Indications: CONSTIPATION Qty: 60 Tab, Refills: 0 STOP taking these medications HYDROcodone-acetaminophen 5-325 mg Oral tablet Comments: Reason for Stopping: Diet Regular Although you may eat a regular diet, there are a few suggestions to help with eating and di gestion. -Small frequent meals (4-6 small meals/day) may be tolerated better than 3 large meals a da y. -Avoid foods that usually make you gassy or bloated. -Your appetite will take time to return to normal. -At minimum, you should be eating 1000 calories a day. However, most people require around 1500 calories to help recover from surgery. -You may experience intermittent nausea. Use the nausea medications you were prescribed to help. If the nausea is constant or you are vomiting regularly (or large amounts), please con tact us. -Stay hydrated. Make sure you are drinking enough water and fluids. You do not need to darlene ure your urine like we were in the hospital, but if it becomes darker or you are peeing less than normal, that may be a sign you need to drink more fluids. -Weigh yourself once a week. It is normal to have some changes in your weight after surgery , however once all the swelling is gone, your weight should stay stable or increase. If you are continuing to lose weight, please discuss this at your clinic appointment or call the cl inic. Activity Showers are permitted, no soaking in water (baths, jacuzzi, swimming) for 4 weeks or until wound is fully healed. No heavy lifting, nothing greater than 10lbs. For 4-6 weeks (a gallon of milk is approximat traci 8lbs.) NO DRIVING WHILE ON NARCOTICS. ACTIVITY: Walking will be your primary source of exercise. It is very important that you wa lk at least three times a day. These can be short walks that you can gradually increase over time as your strength improves. The majority of time should be spent out of bed. It is ok t o take naps if you are tired, but alternate napping with activity. CONSTIPATION: It is very important to avoid constipation and straining while trying to have a bowel movem ent. It is common to have constipation after surgery and while taking narcotics, however the re are several medications you can use to both prevent and relieve constipation. You can us e stool softeners (Colace a.k.a. Docusate Sodium) or laxatives (Senokot -stool softener + la xative; Milk of Magnesia; Miralax - laxative drink; Dulcolax - suppository). Please work tow amalia having a bowel movement every 1-2 days. It is also important to stay hydrated as this wi ll also help your bowel function. PAIN: It is expected that you will have pain after surgery, and it is important to manage this pa in so that you can increase your activity, sleep, and heal well from surgery. You are being sent home with a prescription for narcotic pain medication - this is to be taken NEEDED t ypically every 4-6 hours. You may also substitute/supplement the narcotic medication with Ty lenol for milder pain. DO NOT TO TAKE MORE THAN 3,250MG OF TYLENOL IN 24HOURS. Wound Care Abdominal incision with rosie - these will need to be removed at your follow up appointme nt. When showering, do not scrub incision, let water rinse all soapy residue off, pat area d ry with a clean towel when finished. No need to apply any lotions or ointments to the incisi on.Please contact us if you have any of the following:Difficulty breathing or unusual shortn ess of breath;Excessive bleeding or drainage, or pus at the operative site;Fevers (greater t agudelo 101.5) or chills;Increased pain that is not relieved by pain medications;Persistent naus ea, vomiting, or severe diarrhea.During normal business hours [facility] .For 'after hours' URGENT problems please call the [facility] special warfare operator at and ask for the "[facility] resident on-call". Other Discharge Orders and Instructions Medication Refill Instructions: For non-narcotic medication refills, please contact your pharmacy. If you think you will need a refill for the weekend, you must call by 3pm on to al low time for processing. Narcotics: If you need a refill on narcotic pain medications, please call the clinic be tween 8am-3pm. If you think you will need a refill for the weekend, you must call by 3pm on Narcotic medications (Dilaudid, Oxycodone, Morphine, etc.) cannot be called or faxed in to any pharmacy; They must be either picked up in person or mailed to your home. NO REFILL REQU ESTS WILL BE TAKEN ON FRIDAYS OR . Prescriptions sent by mail will take 3 business d ays. Prescriptions to be picked up in person will be ready by the next business day. It is your responsibility to keep track of how much pain medication you have left. You may receive a phone call from the clinic inquiring about your pain; this is to find out if you are having expected post-surgical pain, or if you are having problems and need furth er evaluation. Vitals on discharge: Ht 162.6 cm (5' 4")( < 3 %ile), Wt 87.9 kg (193 lbs 12.6 oz)( < 3 %ile ), BP 122/72, Pulse 96, Temperature 36.9 C (98.4 F), RR 16, SpO2 99%, BMI 33.26 kg/(m^2) . Outstanding labs/studies: None Your Follow-Up Plan Follow up with [facility] HEMATOLOGY ONCOLOGY [facility]. (Please expect a call from the Oncology clini c in the next several days to schedule an appointment with either Dr. Grey or Dr. Ledesma ) Contact information: [phone] [address] Future Appointments Date & Time Provider Department Dept Phone Center 05/17/2012 11:30 AM CORNELIA KNUTSON MD [facility] [phone] [facility] Discharging Physician: MARCO ANTONIO BEATTY NP Attending Physician: MD Marco Antonio Mauricio RN, MSN, CASE OPERATOR [facility] Pager# [phone] 9:37 AM 05/04/2012 documented in this enc ounter Discharge Instructions Instructions Lala Hernandez RN - 05/04/2012Patient Education Materials: Discharge Nurse: LALA HERNANDEZ Date: 05/04/2012 Discharge Time: 10:07 AM AttachmentsThe following attachments cannot be sent through Care Everywhere.Care of Closed Wounds: After Your Visitdocumented in this encounter Progress Notes Marco Antonio Beatty NP - 05/04/2012 12:54 PM PDT [facility] Inpatient Progress Note Hospital Day #6 Author: MARCO ANTONIO BEATTY NP Attending: CORNELIA KNUTSON MD ID: Maria Elena Upton Interval Hx: no events overnight. Patient understandably upset over pathology report discus sed last night with Dr. Knutson. Pain well controlled. Patient Active Hospital Problem List: 1) *Gallbladder cancer 2) Post-operative pain Chemistries: Last 72 Hours (or 3 results): Recent Labs Basename 05/04/12 0639 05/03/12 0600 05/02/12 0559 NA 140 141 141 K 3.8 3.2* 3.1* CL 104 105 104 BICARB 26 29 29 BUN 3* 3* 1* CR 0.51* 0.51* 0.49* GLU 90 94 108* CA 8.2* 7.8* 8.0* MG 2.0 1.8 1.8 PO4 3.4|3.4 3.1|3.1 2.5|2.5 CBC with diff last 72 hours (or 3 results) No results found for this basename: WBC:3,HB:3,HCT:3,PLT:3,NEUTROPERC:3,BANDPCT:3,LYMPHPERC :3,MONOPERC:3,BASOPERC:3,EOSPERC:3 in the last 72 hours Physical Examination: Last Vitals: BP 122/72 | Pulse 96 | Temp 36.9 C (98.4 F) | RR 16 | Ht 1.626 m (5' 4") | Wt 87.9 kg (193 lb 12.6 oz) | SpO2 99% | BMI 33.26 kg/(m^2) 24 Hour Vital Min/Max: Systolic (24hrs), Av mmHg, Min:110 mmHg, Max:134 mmHg Diastolic (24hrs), Av mmHg, Min:71 mmHg, Max:79 mmHg Pulse Av.4 Min: 89 Max: 99 Temp Av.9 C (98.4 F) Min: 36.9 C (98.4 F) Max: 36.9 C (98.4 F) Resp Av Min: 16 Max: 16 SpO2 Av.4 % Min: 97 % Max: 99 % Date 05/03/12699 - 05/04/12 0659 05/04/12699 - 05/05/12 0659(Discharged) Shift 8895-8843 9209-0653 3852-0404 Daily Total 0189-3341 1088-9730 6578-4526 Daily Total I N T A K E P.O. 925 049 116 8995 500 500 I.V. 5 10 15 Shift Total 930 841 448 5057 500 500 O U T P U T Urine 1050 7153 877 4273 400 400 Urine 1050 5646 527 0721 400 400 Other Stool 1 1 Shift Total 1050 1933 493 3686 400 400 NET -120 -1090 205 -1005 100 100 General: Awake, alert, and oriented x4, no acute distress, VSS HEENT:NC/AT, anicteric Pulm: Respirations even/unlabored, chest expansion symmetrical Cardio: RRR Abdomen: Soft. Appropriately tender to palpation. Non-distended. MS: Moves all extremities well, Warm and well perfused Derm: No erythema, edema, ecchymosis Wound: abdominal incision with rosie c/d/i Activity: oob ad mary Assessment: Maria Elena Gonzalezpadmaja, HD#6, with Gallbladder cancer S/p Diagnostic laparoscopy with biopsies, intraoperative ultrasound, partial segment 4B and 5 liver resection Plan: 1. S/p liver resection: -incision healing well -tolerating regular diet -+BM -Pathology discussed last night with Dr. Knutson -will arrange appointment with Oncology as an outpatient 2. Acute post-operative pain: -gabapentin started with improved pain relief -continue Oxycodone 5-15mg q3 PRN Prophylaxis: Lovenox 40mg QHS Anticipated date of discharge: today Patient was discussed with: Dr. Knutson Attending Physician: Dr. Romy Beatty RN, MSN, CASE OPERATOR [facility] Pager# [phone] 12:54 PM 05/04/2012 Current Inpatient Medications Medication Dose Route Frequency acetaminophen (aka TYLENOL) oral suspension 650 mg 650 mg Oral Q6H enoxaparin (aka LOVENOX) injection 40 mg 40 mg Subcutaneous QPM famotidine (aka PEPCID) tablet 20 mg 20 mg Oral BID gabapentin (aka NEURONTIN) capsule 300 mg 300 mg Oral TID HYDROmorphone (aka DILAUDID) injection 0.1-0.4 mg 0.1-0.4 mg Intravenous Q2H PRN ibuprofen (aka MOTRIN) tablet 400 mg 400 mg Oral Q8H PRN lidocaine (aka LIDODERM) 5 %(700 mg/patch) patch 1 Patch 1 Patch Transdermal Q24H magnesium oxide (aka MAG-OX) tablet 400 mg 400 mg Oral DAILY naloxone (aka NARCAN) injection Intravenous PRN oxyCODONE (immediate release) (aka ROXICODONE) tablet 5-20 mg 5-20 mg Oral Q3H PRN polyethylene glycol (aka MIRALAX) powder 17 g 17 g Oral DAILY senna-docusate (aka SENOKOT S) 8.6-50 mg 1 Tab 1 Tab Oral BID Current Inpatient Medications Medication acetaminophen 500 mg Oral tablet gabapentin 300 mg Oral capsule lidocaine 5 %(700 mg/patch) Topical Adhesive Patch, Medicated ondansetron ODT 4 mg Oral tablet,disintegrating oxyCODONE, immediate release, 5 mg Oral tablet polyethylene glycol 17 gram/dose Oral Powder senna-docusate 8.6-50 mg Oral tablet Parish Arias MD - 5:51 AM PDT [facility] Department of Surgery [facility] Progress Note Author: Parish Blackburn MD Attending Physician: Cornelia Knutson MD 05/03/2012 SUBJECTIVE: Interval history: - Tolerating regular diet - BM yesterday and this morning - No nausea/vomiting - Anxious about pathology, wants to discuss path prior to discharge. - Still reports pain Meds: Continuous Medications Medication Dose Route Frequency Last Rate Scheduled Medications Medication Dose Route Frequency Last Rate acetaminophen (aka TYLENOL) oral suspension 650 mg 650 mg Oral Q6H enoxaparin (aka LOVENOX) injection 40 mg 40 mg Subcutaneous QPM famotidine (aka PEPCID) tablet 20 mg 20 mg Oral BID lidocaine (aka LIDODERM) 5 %(700 mg/patch) patch 1 Patch 1 Patch Transdermal Q24H magnesium oxide (aka MAG-OX) tablet 200 mg 200 mg Oral DAILY polyethylene glycol (aka MIRALAX) powder 17 g 17 g Oral DAILY potassium chloride SR (aka K-DUR) tablet 40 mEq 40 mEq Oral BID senna-docusate (aka SENOKOT S) 8.6-50 mg 1 Tab 1 Tab Oral BID PRN Medications Medication Dose Route Frequency Last Rate HYDROmorphone (aka DILAUDID) injection 0.1-0.4 mg 0.1-0.4 mg Intravenous Q2H PRN 0.4 m g (05/02/12 0831) naloxone (aka NARCAN) injection Intravenous PRN oxyCODONE (immediate release) (aka ROXICODONE) tablet 5-20 mg 5-20 mg Oral Q3H PRN Allergies: No Known Allergies OBJECTIVE: Vital Signs: Last 24 hour min/max Temp: 36.9 C (98.4 F) Temp Min: 36.7 C (98.1 F) Max: 37.2 C (99 F) Pulse: 97 Pulse Min: 92 Max: 97 Resp: 16 Resp Min: 16 Max: 16 BP: 128/72 mmHg BP Min: 113/68 Max: 128/72 SpO2: 97 % SpO2 Min: 97 % Max: 98 % Body mass index is 33.07 kg/(m^2). Date 04/29/12699 - 04/30/12 0659 04/30/12699 - 05/01/12 0659 Shift 9870-1542 3060-8338 1034-0925 Daily Total 2030-1220 6681-4849 4000-2913 Daily Total I N T A K E P.O. 620 631 364 5168 P.O. 620 134 663 4358 I.V. 1977.33 977.5 982.5 3937.33 0 0 IV Bolus Volume 1000 1000 I/O Vol (mL) Saline Flush (Peripheral Line Right Forearm) 10 10 I/O (mL) Saline Flush Volume (Central Line Right) 6 6 0 0 Clinician Bolus (mL) (bupivacaine 0.05 %-HYDROmorphone 20 mcg/mL epidural infusion) 8 0 0 8 Volume (lactated ringers IV) 213.33 213.33 Volume (lactated ringers IV) 750 967.5 982.5 2700 Other 48.5 48.5 I/O Volume Infused (mL) (bupivacaine 0.05 %-HYDROmorphone 20 mcg/mL epidural infusion) 4 8.5 48.5 Shift Total 2645.83 1487.5 1432.5 5565.83 0 0 O U T P U T Urine 889 095 2927 2004 I/O Urinary Drain Output (Urinary Cath Placement López) 167 108 3585 2004 Shift Total 190 083 6905 2005 NET 2415.83 837.5 307.5 3560.83 0 0 Physical Exam: General: NAD Cardiovascular: RRR Respiratory: No increased WOB Abdominal: Incision c/d/i, with rosie in place. Abdomen soft, ND, mildly tender Extremities: WWP Labs/Cultures/Pathology: Chemistries: Last 72 Hours (or 3 results): Recent Labs Basename 04/30/12 0842 04/30/12 0642 04/29/12 0143 04/28/12 1434 NA -- 136 138 140 K -- 3.6 4.2 4.2 CL -- 103 106 108 BICARB -- 27 26 24 BUN -- 6 13 13 CR -- 0.63 0.77 0.69 GLU 80 69 94 -- CA -- 7.0* 7.0* 7.4* MG -- 1.8 2.5 1.4* PO4 -- 1.5* 3.3 3.2 Liver Tests: Last 72 hours (or 3 results) Recent Labs Basename 04/30/12 0642 04/29/12 0143 04/28/12 1434 AST 97* 135* 145* ALT 89* 111* 114* TBILI 0.7 1.0 1.0 AP 59 58 82 ALB 2.1* 2.2* 3.0* TP 4.6* 4.4* 5.4* CBC with diff: last 72 hours (or 3 results) Recent Labs Basename 04/30/12 0642 04/29/12 0143 04/28/12 1434 WBC 9.1 10.5 11.0 HB 9.9* 10.9* 12.8 HCT 29.1* 32.5* 37.4 PLT 113* 118* 153 NEUTROPERC -- -- -- BANDPCT -- -- -- LYMPHPERC -- -- -- MONOPERC -- -- -- BASOPERC -- -- -- EOSPERC -- -- -- Coags: last 72 hours (or 3 results) Lab Results Component Value Date APTT 29.2 04/28/2012 Lab Results Component Value Date INRPT 1.11 04/28/2012 INRPT 1.02 04/28/2012 INRPT 1.02 04/12/2012 Imaging/Diagnostic Studies: No new imaging ASSESSMENT: Maria Elena Upton is a 51 y.o. female patient POD 5 s/p partial liver resection and en bloc portal lymphadenectomy who is doing well. Tolerating regular diet, anxious abou t pathology. PLAN: 1. POD 5: Continue oral pain meds. 2. GI: Continue regular diet 3. PT/OT 4. Incentive spirometry 5. Proph: lovenox 40mg qhs 6. Dispo: pending clinical course, likely to home tomorrow Parish Blackburn MD Surgery, R1 Pager: [phone] ilvia Del Toro NP - 05/01/2012 2:19 PM PDTPain fairly well controlled on oral medications. No longer nauseated, tolerating 10 mg oxycodone Epidural catheter discontinued, tip intact. APS will sign off, please call us back if there are any pain related concerns for us to add ress. Silvia Del Toro NP Adult Pain Service Pager [phone] Team Pager [phone] Silvia Mckeon NP - 05/01/2012 8:56 AM PDT INPATIENT ADULT PAIN SERVICE NEURAXIAL BLOCK PROGRESS NOTE 05/01/2012 Author: SILVIA DEL TORO NP EPIDURAL DAY # 3 POD# 3 Status post: diagnostic laparoscopy with biopsies, intra-opertive ultrasound, partial 4b & 5 liver resection (gallbladder fossa) with en bloc portal lymphadenectomy Previously Obtained: Past Medical History Diagnosis Date Chronic back pain greater than 3 months duration Interval events since last APS visit: Epidural weaning. Ms. Upton describes her pain at the level of: right abdomen Pain Score 2/10 (at rest), 8/10 (cough, deep breath, movement). Ms. Upton is not entir traci satisfied with current level of pain, although able to get out of bed. History of chronic or preoperative pain: yes: location back. Prior to hospitalization: Chronic use of opioids 1 hydrocodone/acetaminophen daily ROS/Side Effects: Nausea/Vomiting: Mild- vomited x 1 this morning. Pruritus: none Numbness/Weakness: none Low BP: none Dizziness: none Sedation: none Activity level: Out of bed Diet: Tolerates liquids Medications: Scheduled Medications Medication Dose Route Frequency Last Rate enoxaparin (aka LOVENOX) injection 40 mg 40 mg Subcutaneous QPM famotidine in NS (aka PEPCID) IV 20 mg 20 mg Intravenous Q12H 20 mg (05/01/12 0830) potassium & sodium phosphates (aka NEUTRA-PHOS, PHOS-NAK) 280-160-250 mg packet 1 Packe t 1 Packet Oral TID senna-docusate (aka SENOKOT S) 8.6-50 mg 1 Tab 1 Tab Oral BID PRN Medications Medication Dose Route Frequency Last Rate acetaminophen (aka OFIRMEV) IV 1,000 mg 1,000 mg Intravenous Q8H PRN 1,000 mg ( 3 1) nalbuphine (aka NUBAIN) injection 2.5 mg 2.5 mg Intravenous Q15MIN PRN naloxone (aka NARCAN) injection Intravenous PRN ondansetron (aka ZOFRAN) injection 4 mg 4 mg Intravenous Q12H PRN oxyCODONE (immediate release) (aka ROXICODONE) tablet 5-20 mg 5-20 mg Oral Q3H PRN Continuous Medications Medication Dose Route Frequency Last Rate bupivacaine 0.05 %-HYDROmorphone 20 mcg/mL epidural infusion Epidural CONTINUOUS 13 m L/hr at 04/30/12 2218 dextrose 5%-NaCl 0.45%-KCl 20 mEq/L IV infusion 75 mL/hr Intravenous CONTINUOUS 75 mL/ hr (05/01/12 0153) Type: Epidural Rate: 13 mL/hour Anticoagulants: Yes - Enoxaparin 40mg subcutaneous daily, last dose given 2100 Lab Results Component Value Date INRPT 1.11 04/28/2012 PLT 113* 04/30/2012 APTT 29.2 04/28/2012 Opioids:Oxycodone 5 Mg/24 hours Other analgesics:Acetaminophen 3000 Mg/24 hours Other psychoactive medications: None Physical Exam: Last Vitals:BP 121/66 | Pulse 98 | Temp 37 C (98.6 F) | RR 16 | Ht 1.626 m (5' 4") | Wt 92.4 kg (203 lb 11.3 oz) | SpO2 97% | BMI 34.97 kg/(m^2) 24 hour Vitals min/max : Systolic (24hrs), Av mmHg, Min:109 mmHg, Max:121 mmHg Diastolic (24hrs), Av mmHg, Min:58 mmHg, Max:68 mmHg Pulse Min: 88 Max: 108 Temp Min: 37 C (98.6 F) Max: 37.4 C (99.3 F) Resp Min: 14 Max: 16 SpO2 Min: 92 % Max: 97 % General Appearance and Neurological Examination: Mental Status: Awake and alert Orientation: Oriented Sensory Level: intact Motor: bilateral lower extremity(ies) -- No block: full flexion and extension of hip, knee and foot Neuraxial Catheter: Location: T7-8;depth at skin: covered by dressing Dressing: Intact Exit Site: Clean and Non-tender Bleeding: no Chest tube in place:no NG/OG tube in place: no Assessment: Ms. Upton rates her pain relief as fair. My personal assessment is concordant with this evaluation Diagnosis: 1. Acute post-operative pain 2. Gallbladder CA My treatment plan is: Transition to oral pain medications Discontinue neuraxial infusion Recheck INR this morning. Lab Results Component Value Date INRPT 1.11 04/28/2012 Last INR day of surgery. --Consider ketorolac IV --Continue oxycodone PO 5-20 mg every 3 hours as needed --IV hydromorphone 0.1-0.4 mg every 2 hours as needed --Continue APAP scheduled IV for now, once reliably taking PO can switch to tablets. Epidural: at thoracic level; If López is in place, it may be removed if deemed appropriate by primary care team I did discuss our findings and recommendations with primary care team provider Rhonda Beatty NP [facility]. For today's evaluation, I have included my personal review of Ms. Upton's history and ph ysical examination. I also used the following components in my medical decision making: Laboratory studies reviewed. Review and summary of old medical records (source: [facility]), as summarized in the body of the note. SILVIA DEL TORO NP BILLING INFORMATION [facility] DEPARTMENT: [id number] Place of Service:- Inpatient Date of Service: 05/01/2012 CSN: [id number] Suggested Modifier: None Suggested CPT: 28398 - Daily mgmt epidural/subarachnoid drug administration Prolonged service: n/a Parish Arias MD - 05/01/2012 5:44 AM PDT [facility] Department of Surgery Blue Surgery Progress Note Author: Parish Blackburn MD Attending Physician: Cornelia Knutson MD 05/01/2012 SUBJECTIVE: Interval history: - Pain well controlled - No nausea vomiting - Has not been ambulating - Tolerating clears (1.5 L intake) - Passing flatus Meds: Continuous Medications Medication Dose Route Frequency Last Rate bupivacaine 0.05 %-HYDROmorphone 20 mcg/mL epidural infusion Epidural CONTINUOUS 13 m L/hr at 04/30/128 dextrose 5%-NaCl 0.45%-KCl 20 mEq/L IV infusion 75 mL/hr Intravenous CONTINUOUS 75 mL/ hr (05/01/12 0153) Scheduled Medications Medication Dose Route Frequency Last Rate enoxaparin (aka LOVENOX) injection 40 mg 40 mg Subcutaneous QPM famotidine in NS (aka PEPCID) IV 20 mg 20 mg Intravenous Q12H 20 mg (04/30/122202) potassium & sodium phosphates (aka NEUTRA-PHOS, PHOS-NAK) 280-160-250 mg packet 1 Packe t 1 Packet Oral TID senna-docusate (aka SENOKOT S) 8.6-50 mg 1 Tab 1 Tab Oral BID PRN Medications Medication Dose Route Frequency Last Rate acetaminophen (aka OFIRMEV) IV 1,000 mg 1,000 mg Intravenous Q8H PRN 1,000 mg (2140) nalbuphine (aka NUBAIN) injection 2.5 mg 2.5 mg Intravenous Q15MIN PRN naloxone (aka NARCAN) injection Intravenous PRN ondansetron (aka ZOFRAN) injection 4 mg 4 mg Intravenous Q12H PRN Allergies: No Known Allergies OBJECTIVE: Vital Signs: Last 24 hour min/max Temp: 37.1 C (98.8 F) Temp Min: 37 C (98.6 F) Max: 37.4 C (99.3 F) Pulse: 88 Pulse Min: 88 Max: 112 Resp: 14 Resp Min: 14 Max: 16 BP: 112/58 mmHg BP Min: 109/63 Max: 121/64 SpO2: 96 % SpO2 Min: 92 % Max: 96 % Body mass index is 34.97 kg/(m^2). Date 04/29/12699 - 04/30/1265804/30/12699 - 05/01/12658 Shift 8880-2555 7072-0450 3934-4112 Daily Total 6411-0684 4618-8793 9871-8402 Daily Total I N T A K E P.O. 620 662 024 4671 P.O. 620 497 145 3958 I.V. 1977.33 977.5 982.5 3937.33 0 0 IV Bolus Volume 1000 1000 I/O Vol (mL) Saline Flush (Peripheral Line Right Forearm) 10 10 I/O (mL) Saline Flush Volume (Central Line Right) 6 6 0 0 Clinician Bolus (mL) (bupivacaine 0.05 %-HYDROmorphone 20 mcg/mL epidural infusion) 8 0 0 8 Volume (lactated ringers IV) 213.33 213.33 Volume (lactated ringers IV) 750 967.5 982.5 2700 Other 48.5 48.5 I/O Volume Infused (mL) (bupivacaine 0.05 %-HYDROmorphone 20 mcg/mL epidural infusion) 4 8.5 48.5 Shift Total 2645.83 1487.5 1432.5 5565.83 0 0 O U T P U T Urine 726 793 0271 2004 I/O Urinary Drain Output (Urinary Cath Placement López) 298 268 2365 2004 Shift Total 521 688 2407 2004 NET 2415.83 837.5 307.5 3560.83 0 0 Physical Exam: General: NAD Cardiovascular: RRR Respiratory: No increased WOB Abdominal: Incision c/d/i, with rosie in place. Abdomen soft, ND, mildly tender Extremities: WWP Labs/Cultures/Pathology: Chemistries: Last 72 Hours (or 3 results): Recent Labs Basename 04/30/12 0842 04/30/12 0642 04/29/12 0143 04/28/12 1434 NA -- 136 138 140 K -- 3.6 4.2 4.2 CL -- 103 106 108 BICARB -- 27 26 24 BUN -- 6 13 13 CR -- 0.63 0.77 0.69 GLU 80 69 94 -- CA -- 7.0* 7.0* 7.4* MG -- 1.8 2.5 1.4* PO4 -- 1.5* 3.3 3.2 Liver Tests: Last 72 hours (or 3 results) Recent Labs Basename 04/30/12 0642 04/29/12 0143 04/28/12 1434 AST 97* 135* 145* ALT 89* 111* 114* TBILI 0.7 1.0 1.0 AP 59 58 82 ALB 2.1* 2.2* 3.0* TP 4.6* 4.4* 5.4* CBC with diff: last 72 hours (or 3 results) Recent Labs Basename 04/30/12 0642 04/29/12 0143 04/28/12 1434 WBC 9.1 10.5 11.0 HB 9.9* 10.9* 12.8 HCT 29.1* 32.5* 37.4 PLT 113* 118* 153 NEUTROPERC -- -- -- BANDPCT -- -- -- LYMPHPERC -- -- -- MONOPERC -- -- -- BASOPERC -- -- -- EOSPERC -- -- -- Coags: last 72 hours (or 3 results) Lab Results Component Value Date APTT 29.2 04/28/2012 Lab Results Component Value Date INRPT 1.11 04/28/2012 INRPT 1.02 04/28/2012 INRPT 1.02 04/12/2012 Imaging/Diagnostic Studies: No new imaging ASSESSMENT: Maria Elena Upton is a 51 y.o. female patient POD 3 s/p partial liver resection and en bloc portal lymphadenectomy who is doing well PLAN: 1. POD 3: Transition to oral pain meds, epidural perAPS. D/c López today. Ambulate. 2. GI: Advance to FLD 3. PT/OT 4. Incentive spirometry 5. Proph: lovenox 40mg qhs 6. Dispo: pending clinical course Parish Blackburn MD Surgery, R1 Pager: [phone] Parish Arisa MD - 11:59 AM PDT [facility] Department of Surgery Blue Surgery Progress Note Author: Parish Blackburn MD Attending Physician: Cornelia Knutson MD 04/30/2012 SUBJECTIVE: Interval history: - Pain well controlled with epidural - No nausea vomiting - Has not been ambulating - Tolerating clears - No flatus Meds: Continuous Medications Medication Dose Route Frequency Last Rate bupivacaine 0.05 %-HYDROmorphone 20 mcg/mL epidural infusion Epidural CONTINUOUS dextrose 5%-NaCl 0.45%-KCl 20 mEq/L IV infusion 75 mL/hr Intravenous CONTINUOUS 75 mL/ hr (04/30/12905) Scheduled Medications Medication Dose Route Frequency Last Rate enoxaparin (aka LOVENOX) injection 40 mg 40 mg Subcutaneous QPM famotidine in NS (aka PEPCID) IV 20 mg 20 mg Intravenous Q12H 20 mg (04/30/12905) magnesium sulfate IV (premade) 1 g 1 g Intravenous ONCE potassium & sodium phosphates (aka NEUTRA-PHOS, PHOS-NAK) 280-160-250 mg packet 1 Packe t 1 Packet Oral TID senna-docusate (aka SENOKOT S) 8.6-50 mg 1 Tab 1 Tab Oral BID PRN Medications Medication Dose Route Frequency Last Rate acetaminophen (aka OFIRMEV) IV 1,000 mg 1,000 mg Intravenous Q8H PRN 1,000 mg ( 3 1054) nalbuphine (aka NUBAIN) injection 2.5 mg 2.5 mg Intravenous Q15MIN PRN naloxone (aka NARCAN) injection Intravenous PRN ondansetron (aka ZOFRAN) injection 4 mg 4 mg Intravenous Q12H PRN Allergies: No Known Allergies OBJECTIVE: Vital Signs: Last 24 hour min/max Temp: 37 C (98.6 F) Temp Min: 36.9 C (98.4 F) Max: 38.4 C (101.1 F) Pulse: 112 Pulse Min: 93 Max: 121 Resp: 18 Resp Min: 14 Max: 19 BP: 128/71 mmHg BP Min: 103/45 Max: 128/71 SpO2: 93 % SpO2 Min: 85 % Max: 100 % Body mass index is 33.45 kg/(m^2). Date 04/29/12699 - 04/30/1259 04/30/12699 - 05/01/12 0659 Shift 5287-3546 1611-7928 1819-3990 Daily Total 3008-4771 4440-9063 2756-0675 Daily Total I N T A K E P.O. 620 880 169 1369 P.O. 620 276 712 5827 I.V. 1977.33 977.5 982.5 3937.33 0 0 IV Bolus Volume 1000 1000 I/O Vol (mL) Saline Flush (Peripheral Line Right Forearm) 10 10 I/O (mL) Saline Flush Volume (Central Line Right) 6 6 0 0 Clinician Bolus (mL) (bupivacaine 0.05 %-HYDROmorphone 20 mcg/mL epidural infusion) 8 0 0 8 Volume (lactated ringers IV) 213.33 213.33 Volume (lactated ringers IV) 750 967.5 982.5 2700 Other 48.5 48.5 I/O Volume Infused (mL) (bupivacaine 0.05 %-HYDROmorphone 20 mcg/mL epidural infusion) 4 8.5 48.5 Shift Total 2645.83 1487.5 1432.5 5565.83 0 0 O U T P U T Urine 687 285 0125 2004 I/O Urinary Drain Output (Urinary Cath Placement López) 352 859 2799 2004 Shift Total 262 704 7471 2004 NET 2415.83 837.5 307.5 3560.83 0 0 Physical Exam: General: NAD Cardiovascular: RRR Respiratory: No increased WOB Abdominal: Dressing c/d/i. Dressing removed, incision c/d/i, with rosie in place. Abdom en soft, ND, mildly tender Extremities: WWP Labs/Cultures/Pathology: Chemistries: Last 72 Hours (or 3 results): Recent Labs Basename 04/30/12 0842 04/30/12 0642 04/29/12 0143 04/28/12 1434 NA -- 136 138 140 K -- 3.6 4.2 4.2 CL -- 103 106 108 BICARB -- 27 26 24 BUN -- 6 13 13 CR -- 0.63 0.77 0.69 GLU 80 69 94 -- CA -- 7.0* 7.0* 7.4* MG -- 1.8 2.5 1.4* PO4 -- 1.5* 3.3 3.2 Liver Tests: Last 72 hours (or 3 results) Recent Labs Basename 04/30/12 0642 04/29/12 0143 04/28/12 1434 AST 97* 135* 145* ALT 89* 111* 114* TBILI 0.7 1.0 1.0 AP 59 58 82 ALB 2.1* 2.2* 3.0* TP 4.6* 4.4* 5.4* CBC with diff: last 72 hours (or 3 results) Recent Labs Basename 04/30/12 0642 04/29/12 0143 04/28/12 1434 WBC 9.1 10.5 11.0 HB 9.9* 10.9* 12.8 HCT 29.1* 32.5* 37.4 PLT 113* 118* 153 NEUTROPERC -- -- -- BANDPCT -- -- -- LYMPHPERC -- -- -- MONOPERC -- -- -- BASOPERC -- -- -- EOSPERC -- -- -- Coags: last 72 hours (or 3 results) Lab Results Component Value Date APTT 29.2 04/28/2012 Lab Results Component Value Date INRPT 1.11 04/28/2012 INRPT 1.02 04/28/2012 INRPT 1.02 04/12/2012 Imaging/Diagnostic Studies: No new imaging ASSESSMENT: Maria Elena Upton is a 51 y.o. female patient POD 2 s/p partial liver resection and en bloc portal lymphadenectomy who is doing well PLAN: 1. POD 2: continue epidural per APS. Continue López today. Encourage ambulation. Will jassi de oliveira d/c López tomorrow 2. GI: Continue sips of clears until flatus 3. PT/OT 4. Incentive spirometry 5. Proph: lovenox 40mg qhs 6. Dispo: pending clinical course Parish Blackburn MD Surgery, R1 Pager: [phone] Sasha Antony MD - 04/30/2012 7:03 AM PDT INPATIENT ADULT PAIN SERVICE NEURAXIAL BLOCK PROGRESS NOTE 04/30/2012 EPIDURAL DAY # 2 POD# 2 Status post: diagnostic lsp with biopsies, intra-opertive ultrasound, partial 4b & 5 liver resection (gallbladder fossa) with en bloc portal lymphadenectomy Diagnosis: Gallbladder CA Last seen by APS yesterday, at which time our recommendations were: Ms. Upton rates her pain relief as fair. My personal assessment is concordant with this evaluation. We have given her a 5 ml bolus w hile in the room. If this is not adequate, we will return and change the hydromorphone 20 ug /ml to sufentanil 1 ug/ml. Ms. Upton takes 1 hydrocodone/acetaminophen daily at home. These recommendations were implemented. Interval events since last APS visit: Transferred out of ICU. Patient describes her pain at the level of: surgical incision Pain Score 6/10 (at rest), 10/10 (cough, deep breath, movement). Patient is satisfied with current level of pain. History of chronic or preoperative pain: yes: location back. Prior to hospitalization: Chronic use of opioids 1 hydrocodone/acetaminophen daily Previously obtained past medical history: Past Medical History Diagnosis Date Chronic back pain greater than 3 months duration ROS/Side Effects: Nausea/Vomiting: none Pruritus: Mild itching Numbness/Weakness: none Low BP: none Dizziness: none Sedation: None but only "Sporadic sleep " last night Activity level: Out of bed Diet: Tolerates liquids Medications: Scheduled Medications Medication Dose Route Frequency Last Rate enoxaparin (aka LOVENOX) injection 40 mg 40 mg Subcutaneous QPM famotidine in NS (aka PEPCID) IV 20 mg 20 mg Intravenous Q12H 20 mg (04/29/122102) senna-docusate (aka SENOKOT S) 8.6-50 mg 1 Tab 1 Tab Oral BID PRN Medications Medication Dose Route Frequency Last Rate acetaminophen (aka OFIRMEV) IV 1,000 mg 1,000 mg Intravenous Q8H PRN 1,000 mg ( 3 0029) HYDROmorphone (aka DILAUDID) injection 0.2-1 mg 0.2-1 mg Intravenous Q2H PRN 0.3 mg (0 04/29/12 1545) nalbuphine (aka NUBAIN) injection 2.5 mg 2.5 mg Intravenous Q15MIN PRN naloxone (aka NARCAN) injection Intravenous PRN ondansetron (aka ZOFRAN) injection 4 mg 4 mg Intravenous Q12H PRN Continuous Medications Medication Dose Route Frequency Last Rate bupivacaine 0.05 %-HYDROmorphone 20 mcg/mL epidural infusion Epidural CONTINUOUS lactated ringers IV 150 mL/hr Intravenous CONTINUOUS 150 mL/hr (04/30/12 0036) Opioids:Hydromorphone 0.2-1 mg IV Q2H PRN (none cine 1500 last night) Other analgesics:Acetaminophen 1000 mg IV q8H Other psychoactive medications: None Neuraxial Infusion Type: Epidural Rate: 12 mL/hour Anticoagulants: Yes - Enoxaparin 40mg subcutaneous daily, last dose given 04/29 @ 2100 Lab Results Component Value Date INRPT 1.11 04/28/2012 PLT 118* 04/29/2012 APTT 29.2 04/28/2012 Physical Exam: Last Vitals:BP 128/71 | Pulse 95 | Temp 37 C (98.6 F) | RR 18 | Ht 1.626 m (5' 4") | Wt 88.4 kg (194 lb 14.2 oz) | SpO2 99% | BMI 33.45 kg/(m^2) 24 hour Vitals min/max : Systolic (24hrs), Av mmHg, Min:103 mmHg, Max:128 mmHg Diastolic (24hrs), Av mmHg, Min:45 mmHg, Max:71 mmHg Pulse Min: 93 Max: 131 Temp Min: 36.9 C (98.4 F) Max: 38.4 C (101.1 F) Resp Min: 14 Max: 24 SpO2 Min: 85 % Max: 100 % General Appearance and Neurological Examination: Mental Status: Awake and alert Orientation: Oriented Sensory Level: intact Motor: bilateral lower extremity(ies) -- No block: full flexion and extension of hip, knee and foot Neuraxial Catheter: Location: T7-8;depth at skin 13 cm Dressing: Intact Exit Site: Clean and Non-tender Bleeding: no Chest tube in place:no NG/OG tube in place: no Diagnosis: 1. Acute post-operative pain 2. Gallbladder CA My treatment plan is: Ms. Upton rates her pain relief as good. My personal assessment is concordant with this evaluation Continue neuraxial infusion, titrate infusion as needed Ms. Upton's pain is much better controlled than yesterday. We discussed changing soluti on since her pain scores still seem a little high but she is happy with her pain control and the solution as is. Epidural: at thoracic level; If López is in place, it may be removed if deemed appropriate by primary care team I did discuss our findings and recommendations with primary care team provider , kat frost. For today's evaluation, I have included my personal review of Mr. Vaughn's history and ph ysical examination. I also used the following components in my medical decision making: Discussion of case with another healthcare provider primary service. JOSE MALAGON MD BILLING INFORMATION [facility] DEPARTMENT: [phone] Place of Service:- Inpatient Date of Service: 04/30/2012 CSN: [id number] Suggested Modifier: GC - Resident Involved Suggested CPT: 55492 - Daily mgmt epidural/subarachnoid drug administration Prolonged service: n/a Ms. Upton was evaluated with Sasha Daly MD I saw and evaluated patient Ms. Maria Elena Upton with Fellow Jose Malagon MD. I reviewed all details of Ms. Maria Elena Upton s epidural block management. I have reviewed the fell ow s note and I agree with the plan of care as documented. I do not have additional comme nts. We did discuss our findings and recommendations with the primary care team. SASHA DALY MD Sasha Antony MD - 04/29/2012 1:25 PM PDTCalled back to check on Ms. Upton. She is reporting pain at a 6 or a 7 but did not want more medication for pain as offered by nursing. We will hold off on changing her epidural solution for now but will check back with her whe n she gets to the floor later today. SASHA DALY MD [facility] [address] [facility], 4th Floor Mail Code: CH4P [place], [place] [address] Matilde Hooper ma - 04/29/2012 1:03 PM PDT BLUE SURGERY INPATIENT PROGRESS NOTE Hospital Day: 1 Author; DANIELLE MEZA Attending Physician: Cornelia Knutson MD Patient Active Problem List Diagnoses Nasal Septal Defect Perforation of Nasal Septum Gallbladder cancer Subjective: S/p diagnostic lap with biopsies, intra-opertive ultrasound, partial 4b & 5 liver resection (gallbladder fossa) with en bloc portal lymphadenectomy Overnight Pain is somewhat controlled with epidural, patient still admits to increased soreness in ab domen, and was a little teary this morning. Patient had some hypotensive with oliguric episodes - epidural was titrated and 1L bolus wa s given. She responded well to fluids . This am - patient was given anther bolus in view of tachycardia and oliguria - she had increased urine output afterwards Saturating well on room air Was feeling hungry, had no flatus, no BM, no nausea with ice chips and vomiting. Physical Exam: Last Vitals: BP 121/67 | Pulse 115 | Temp 36.9 C (98.4 F) | RR 14 | Ht 1.626 m (5' 4") | Wt 84 kg (185 lb 3 oz) | SpO2 85% | BMI 31.79 kg/(m^2) 24 Hour Vital Min/Max: Systolic (24hrs), Av mmHg, Min:74 mmHg, Max:126 mmHg Diastolic (24hrs), Av mmHg, Min:39 mmHg, Max:76 mmHg Pulse Av.4 Min: 86 Max: 131 Temp Av.6 C (99.7 F) Min: 36.9 C (98.4 F) Max: 38.7 C (101.7 F) Resp Av Min: 9 Max: 24 SpO2 Av.3 % Min: 85 % Max: 100 % Intake/Output Summary (Last 24 hours) at 04/29/12 1304 Last data filed at 04/29/12 0945 Gross per 24 hour Intake 6129.03 ml Output 927 ml Net 5202.03 ml General Appearance: Alert, in some pain this am HEENT: Mm pink and moist Respiratory: Bilateral vesicular sounds Cardiovascular: S1S2 RRR Abdomen: Soft, incisional tenderness Some stains - serous ang on dressings Extremities: Soft compartments CBC with diff last 72 hours (or 3 results) Recent Labs Basename 04/29/12 0143 04/28/12 1434 04/28/12 0800 WBC 10.5 11.0 6.1 HB 10.9* 12.8 13.9 HCT 32.5* 37.4 40.0 PLT 118* 153 179 NEUTROPERC -- -- -- BANDPCT -- -- -- LYMPHPERC -- -- -- MONOPERC -- -- -- BASOPERC -- -- -- EOSPERC -- -- -- Chemistries: Last 72 Hours (or 3 results): Recent Labs Basename 04/29/12 0143 04/28/12 1434 04/27/12 1602 NA 138 140 139 K 4.2 4.2 3.8 CL 106 108 104 BICARB 26 24 26 BUN 13 13 11 CR 0.77 0.69 0.64 GLU 94 116* 76 CA 7.0* 7.4* 8.8 MG 2.5 1.4* -- PO4 3.3 3.2 -- Liver Tests: Last 72 hours (or 3 results) Recent Labs Basename 04/29/12 0143 04/28/12 1434 04/27/12 1602 AST 135* 145* 27 ALT 111* 114* 42 TBILI 1.0 1.0 0.6 AP 58 82 129* ALB 2.2* 3.0* 3.7 TP 4.4* 5.4* 6.7 Assessment and Plan: S/p liver segmentectomy and en bloc LN dissection Plan Neuro Post op pain Epidural - by APS - if not working though, possible transition to [employer] Hypotension Fluid bolus as needed to maintain MAP's > 65 Titrate epidural per APS Resp Atelectasis Encourage IS Encourage mobilization GI Nutrition Allow sips of clears Await bowel function GERD Famotidine Oliguria Responsive to fluids - bolus as needed to maintain UO > 0.5ml/kg/hr Endocrine Hyperglycemia Nil issues - within rage - will monitor HEme/ FEN/ ID Anemia Post liver segment resection - will monitor closely - no need for intervention Dispo TRANSFER TO [facility] Sasha Antony MD - 04/29/2012 7:43 AM PDT INPATIENT ADULT PAIN SERVICE NEURAXIAL BLOCK PROGRESS NOTE 04/29/2012 EPIDURAL DAY # 1 POD# 1 Status post: diagnostic lsp with biopsies, intra-opertive ultrasound, partial 4b & 5 liver resection (gallbladder fossa) with en bloc portal lymphadenectomy Diagnosis: Gallbladder CA Epidural placed yesterday by anesthesia team Patient describes her pain at the level of: surgical incision Pain Score 7/10 (at rest), 10/10 (cough, deep breath, movement). Patient is not satisfied with current level of pain. History of chronic or preoperative pain: yes: location back. Prior to hospitalization: Chronic use of opioids 1 hydrocodone/acetaminophen daily Previously obtained past medical history: Past Medical History Diagnosis Date Chronic back pain greater than 3 months duration ROS/Side Effects: Nausea/Vomiting: none Pruritus: none Numbness/Weakness: none Low BP: mild Dizziness: mild Sedation: none Activity level: Out of bed Diet: NPO/sips/ice chips Medications: Scheduled Medications Medication Dose Route Frequency Last Rate enoxaparin (aka LOVENOX) injection 40 mg 40 mg Subcutaneous QPM famotidine in NS (aka PEPCID) IV 20 mg 20 mg Intravenous Q12H senna-docusate (aka SENOKOT S) 8.6-50 mg 1 Tab 1 Tab Oral BID PRN Medications Medication Dose Route Frequency Last Rate acetaminophen (aka OFIRMEV) IV 1,000 mg 1,000 mg Intravenous Q8H PRN HYDROmorphone (aka DILAUDID) injection 0.2-1 mg 0.2-1 mg Intravenous Q2H PRN 0.4 mg (0 04/29/12 0210) nalbuphine (aka NUBAIN) injection 2.5 mg 2.5 mg Intravenous Q15MIN PRN naloxone (aka NARCAN) injection Intravenous PRN ondansetron (aka ZOFRAN) injection 4 mg 4 mg Intravenous Q12H PRN Continuous Medications Medication Dose Route Frequency Last Rate bupivacaine 0.05 %-HYDROmorphone 20 mcg/mL epidural infusion Epidural CONTINUOUS lactated ringers IV 125 mL/hr Intravenous CONTINUOUS Opioids:Hydromorphone 0.2-1 mg IV Q2H (1.4 mg in 24 hours) Other analgesics:Acetaminophen 1000 mg IV Q8H, Other psychoactive medications: None Neuraxial Infusion Type: Epidural Rate: 12 mL/hour Anticoagulants: Yes - Enoxaparin 40mg subcutaneous daily, first dose tonight at 2100 Lab Results Component Value Date INRPT 1.11 04/28/2012 PLT 118* 04/29/2012 APTT 29.2 04/28/2012 Physical Exam: Last Vitals:BP 117/64 | Pulse 101 | Temp 37.3 C (99.1 F) | RR 15 | Ht 1.626 m (5' 4") | Wt 84 kg (185 lb 3 oz) | SpO2 100% | BMI 31.79 kg/(m^2) 24 hour Vitals min/max : Systolic (24hrs), Av mmHg, Min:74 mmHg, Max:126 mmHg Diastolic (24hrs), Av mmHg, Min:39 mmHg, Max:76 mmHg Pulse Min: 86 Max: 129 Temp Min: 37.2 C (99 F) Max: 38.7 C (101.7 F) Resp Min: 9 Max: 23 SpO2 Min: 91 % Max: 100 % General Appearance and Neurological Examination: Mental Status: Awake and alert Orientation: Oriented Sensory Level: intact Motor: bilateral lower extremity(ies) -- No block: full flexion and extension of hip, knee and foot Neuraxial Catheter: Location: T7-8;depth at skin covered by dressing Dressing: Intact Exit Site: Clean Bleeding: no Chest tube in place:no NG/OG tube in place: no Diagnosis: 1. Acute post-operative pain 2. Gallbladder CA My treatment plan is: Ms. Upton rates her pain relief as fair. My personal assessment is concordant with this evaluation. We have given her a 5 ml bolus while in the room. If this is not adequate, we will return and change the hydromorphone 20 ug/ml to sufentanil 1 ug/ml. Ms. Upton takes 1 hydrocodone/acetaminophen daily at home. We will follow back up in one hour. Continue neuraxial infusion, titrate infusion as needed Epidural: at thoracic level; If López is in place, it may be removed if deemed appropriate by primary care team I did discuss our findings and recommendations with primary care team provider . For today's evaluation, I have included my personal review of Mr. Vaughn's history and ph ysical examination. I also used the following components in my medical decision making: N/a JOSE MALAGON MD BILLING INFORMATION [facility] DEPARTMENT: [phone] Place of Service:- Inpatient Date of Service: 04/29/2012 CSN: [id number] Suggested Modifier: GC - Resident Involved Suggested CPT: 49176 - Daily mgmt epidural/subarachnoid drug administration Prolonged service: n/a Ms. Upton was evaluated with Sasha Daly MD I saw and evaluated patient Ms. Maria Elena Upton with Fellow Jose Malagon MD. I reviewed all details of Ms. Maria Elena Upton s epidural block management. I have reviewed the fell ow s note and I agree with the plan of care as documented. I do not have additional comme nts. We did discuss our findings and recommendations with the primary care team. SASHA DALY MD Rukhsana Holm MD - 04/29/2012 6:49 AM PDTI saw and evaluated the patient. I agree with the findings an d the plan of care as documented in the resident s note. RUKHSANA OSULLIVAN MD Ambrocio Blue - 04/14 6:49 AM PDT Trauma / Surgical Critical Care Service - Progress Note Name: MARIA ELENA UPTON Date: 04/29/2012 Time: 6:49 AM Author: ALFREDO DOUGHERTY HPI: 51 y.o. y/o female admitted on 04/28/2012 6:09 AM with below current issues. Hospital Day #1 ICU Day #1 Procedures: 04/28 Partial segment 4B and 5 liver resection (gallbladder fossa with en bloc portal lympha denectomy). Access: R a-line (d/c today), R IJ, PIV ABX: none 24hr events: Stable overnight. Hypotensive and was given fluid boluses (2L total). Epidural was found to be running bupivacaine. It was turned off and BPs improved. Feeling painful this morning. Current meds: Acetaminophen Epidural- dilaudid/bupivicaine pepcid Dilaudid IV prn LR 100ml/hr [place] Labs: EPIC reviewed Significant Results Na 138, K 4.2, Cr 0.77, Ca 7.0, AST 135, ALT 111, alk phos 58, WBC 10.5, Hct 32.5, plt 111 Imaging: none Vitals: Last 24 hour min/max Temp: 37.3 C (99.1 F) Temp Min: 37.2 C (99 F) Max: 38.7 C (101.7 F) Pulse: 99 Pulse Min: 86 Max: 129 Resp: 13 Resp Min: 9 Max: 23 BP: 102/58 mmHg BP Min: 74/45 Max: 126/63 SpO2: 100 % SpO2 Min: 91 % Max: 100 % Body mass index is 31.79 kg/(m^2). Intake/Output Summary (Last 24 hours) at 04/29/12 0649 Last data filed at 04/29/12 0627 Gross per 24 hour Intake 5853.2 ml Output 1192 ml Net 4661.2 ml UOP: ~40cc/hr Net since admission +4L Physical exam: Gen: NAD. AAOx3 Chest: CTAB CV: RRR Abd: ND, tender to palpation, dressings in place, c/d/i Extremities: WWP, minimal edema Assessment: Maria Elena Upton is a 51 y.o. female with adenocarcinoma of the gallbladder s/p biopsy, lym phadenectomy, and 4b & 5 liver resection. Active problem/Plan: 1. Gallbladder carcinoma: POD #1 s/p liver resection: Hemodynamically stable. Doing well. -INR 1.11 and phos 3.3 this AM. -Encourage IS, and OOB today 2. Post-operative pain: Not hypotensive this AM. Will ask APS to increase epidural. 3. Hypotension: Responsive to fluid boluses. Improved this AM. -Continue to monitor. Resolved problems/Plan: none F:clears A:epidural S:none needed T:SCDs H:>30 degrees U:famotidine G:none needed at this time Line: PIV, Removed A-line and central line this AM Dispo:Transfer to wards Discussed with Dr. Osullivan on SICU rounds. Alfredo Dougherty MD Department of Obstetrics & Gynecology, PGY1 [facility] Pager [phone] documented in thi s encounter Plan of [...] for this | | | e | 11:11 PM | | procedure are in the | | | | PST | | results section. | + +--------+ + + + | RENAL FUNCTION SET | Routin | 05/04/2012 | | Results for this | | (NA,K,CL,CO2,BUN,CRE | e | 6:39 AM | | procedure are in the | | AT,GLUC,CA,PHOS,ALB | | PDT | | results section. | | ) | | | | | + +--------+ + + + | PHOSPHORUS, PLASMA | Urgent | 05/04/2012 | | Results for this | | | | 6:39 AM | | procedure are in the | | | | PDT | | results section. | + +--------+ + + + | MAGNESIUM, PLASMA | Urgent | 05/04/2012 | | Results for this | | | | 6:39 AM | | procedure are in the | | | | PDT | | results section. | + +--------+ + + + | RENAL FUNCTION SET | Routin | 05/03/2012 | | Results for this | | (NA,K,CL,CO2,BUN,CRE | e | 6:00 AM | | procedure are in the | | AT,GLUC,CA,PHOS,ALB | | PDT | | results section. | | ) | | | | | + +--------+ + + + | PHOSPHORUS, PLASMA | Urgent | 05/03/2012 | | Results for this | | | | 6:00 AM | | procedure are in the | | | | PDT | | results section. | + +--------+ + + + | MAGNESIUM, PLASMA | Urgent | 05/03/2012 | | Results for this | | | | 6:00 AM | | procedure are in the | | | | PDT | | results section. | + +--------+ + + + | RENAL FUNCTION SET | Routin | 05/02/2012 | | Results for this | | (NA,K,CL,CO2,BUN,CRE | e | 5:59 AM | | procedure are in the | | AT,GLUC,CA,PHOS,ALB | | PDT | | results section. | | ) | | | | | + +--------+ + + + | PHOSPHORUS, PLASMA | Urgent | 05/02/2012 | | Results for this | | | | 5:59 AM | | procedure are in the | | | | PDT | | results section. | + +--------+ + + + | MAGNESIUM, PLASMA | Urgent | 05/02/2012 | | Results for this | | | | 5:59 AM | | procedure are in the | | | | PDT | | results section. | + +--------+ + + + | CAPILLARY BLOOD | Routin | 05/01/2012 | | Results for this | | GLUCOSE (NO CHG), | e | 8:55 PM | | procedure are in the | | POC | | PDT | | results section. | + +--------+ + + + | INR | Urgent | 05/01/2012 | | Results for this | | | | 10:42 AM | | procedure are in the | | | | PDT | | results section. | + +--------+ + + + | CAPILLARY BLOOD | Routin | 05/01/2012 | | Results for this | | GLUCOSE (NO CHG), | e | 8:33 AM | | procedure are in the | | POC | | PDT | | results section. | + +--------+ + + + | COMPLETE METABOLIC | Urgent | 05/01/2012 | | Results for this | | SET | | 6:03 AM | | procedure are in the | | (NA,K,CL,CO2,BUN,CRE | | PDT | | results section. | | AT,GLUC,CA,AST,ALT,B | | | | | | CIRILO TOTAL,ALK | | | | | | PHOS,ALB,PROT TOTAL) | | | | | + +--------+ + + + | PHOSPHORUS, PLASMA | Urgent | 05/01/2012 | | Results for this | | | | 6:03 AM | | procedure are in the | | | | PDT | | results section. | + +--------+ + + + | MAGNESIUM, PLASMA | Urgent | 05/01/2012 | | Results for this | | | | 6:03 AM | | procedure are in the | | | | PDT | | results section. | + +--------+ + + + | CAPILLARY BLOOD | Routin | 04/30/2012 | | Results for this | | GLUCOSE (NO CHG), | e | 8:33 PM | | procedure are in the | | POC | | PDT | | results section. | + +--------+ + + + | CAPILLARY BLOOD | Routin | 04/30/2012 | | Results for this | | GLUCOSE (NO CHG), | e | 8:42 AM | | procedure are in the | | POC | | PDT | | results section. | + +--------+ + + + | CBC ONLY | Urgent | 04/30/2012 | | Results for this | | | | 6:42 AM | | procedure are in the | | | | PDT | | results section. | + +--------+ + + + | COMPLETE METABOLIC | Urgent | 04/30/2012 | | Results for this | | SET | | 6:42 AM | | procedure are in the | | (NA,K,CL,CO2,BUN,CRE | | PDT | | results section. | | AT,GLUC,CA,AST,ALT,B | | | | | | CIRILO TOTAL,ALK | | | | | | PHOS,ALB,PROT TOTAL) | | | | | + +--------+ + + + | CBC ONLY | Urgent | 04/30/2012 | | Results for this | | | | 6:42 AM | | procedure are in the | | | | PDT | | results section. | + +--------+ + + + | PHOSPHORUS, PLASMA | Urgent | 04/30/2012 | | Results for this | | | | 6:42 AM | | procedure are in the | | | | PDT | | results section. | + +--------+ + + + | MAGNESIUM, PLASMA | Urgent | 04/30/2012 | | Results for this | | | | 6:42 AM | | procedure are in the | | | | PDT | | results section. | + +--------+ + + + | OPERATION RECORD | | 04/29/2012 | | Results for this | | | | 5:13 PM | | procedure are in the | | | | PDT | | results section. | + +--------+ + + + | CBC ONLY | Urgent | 04/29/2012 | | Results for this | | | | 1:43 AM | | procedure are in the | | | | PDT | | results section. | + +--------+ + + + | COMPLETE METABOLIC | Urgent | 04/29/2012 | | Results for this | | SET | | 1:43 AM | | procedure are in the | | (NA,K,CL,CO2,BUN,CRE | | PDT | | results section. | | AT,GLUC,CA,AST,ALT,B | | | | | | CIRILO TOTAL,ALK | | | | | | PHOS,ALB,PROT TOTAL) | | | | | + +--------+ + + + | CBC ONLY | Urgent | 04/29/2012 | | Results for this | | | | 1:43 AM | | procedure are in the | | | | PDT | | results section. | + +--------+ + + + | PHOSPHORUS, PLASMA | Urgent | 04/29/2012 | | Results for this | | | | 1:43 AM | | procedure are in the | | | | PDT | | results section. | + +--------+ + + + | MAGNESIUM, PLASMA | Urgent | 04/29/2012 | | Results for this | | | | 1:43 AM | | procedure are in the | | | | PDT | | results section. | + +--------+ + + + | X-RAY PORTABLE CHEST | Urgent | 04/28/2012 | | Results for this | | 1 VIEW | | 3:02 PM | | procedure are in the | | | | PDT | | results section. | + +--------+ + + + | CBC ONLY | Urgent | 04/28/2012 | | Results for this | | | | 2:34 PM | | procedure are in the | | | | PDT | | results section. | + +--------+ + + + | INR | Urgent | 04/28/2012 | | Results for this | | | | 2:34 PM | | procedure are in the | | | | PDT | | results section. | + +--------+ + + + | COMPLETE METABOLIC | Urgent | 04/28/2012 | | Results for this | | SET | | 2:34 PM | | procedure are in the | | (NA,K,CL,CO2,BUN,CRE | | PDT | | results section. | | AT,GLUC,CA,AST,ALT,B | | | | | | CIRILO TOTAL,ALK | | | | | | PHOS,ALB,PROT TOTAL) | | | | | + +--------+ + + + | CBC ONLY | Urgent | 04/28/2012 | | Results for this | | | | 2:34 PM | | procedure are in the | | | | PDT | | results section. | + +--------+ + + + | PHOSPHORUS, PLASMA | Urgent | 04/28/2012 | | Results for this | | | | 2:34 PM | | procedure are in the | | | | PDT | | results section. | + +--------+ + + + | MAGNESIUM, PLASMA | Urgent | 04/28/2012 | | Results for this | | | | 2:34 PM | | procedure are in the | | | | PDT | | results section. | + +--------+ + + + | LACTATE (ART), POC | Routin | 04/28/2012 | Gallbladder cancer | Results for this | | ISTAT | e | 8:38 AM | (HCC) | procedure are in the | | | | PDT | | results section. | + +--------+ + + + | HEMOGLOBIN-NINOOX, POC | Routin | 04/28/2012 | Gallbladder cancer | Results for this | | | e | 8:38 AM | (HCC) | procedure are in the | | | | PDT | | results section. | + +--------+ + + + | SODIUM, POC | Routin | 04/28/2012 | Gallbladder cancer | Results for this | | | e | 8:38 AM | (HCC) | procedure are in the | | | | PDT | | results section. | + +--------+ + + + | POTASSIUM, POC | Routin | 04/28/2012 | Gallbladder cancer | Results for this | | | e | 8:38 AM | (HCC) | procedure are in the | | | | PDT | | results section. | + +--------+ + + + | GLUCOSE, POC | Routin | 04/28/2012 | Gallbladder cancer | Results for this | | | e | 8:38 AM | (HCC) | procedure are in the | | | | PDT | | results section. | + +--------+ + + + | ARTERIAL BLOOD GAS, | Routin | 04/28/2012 | Gallbladder cancer | Results for this | | POC | e | 8:38 AM | (HCC) | procedure are in the | | | | PDT | | results section. | + +--------+ + + + | CHLORIDE, POC | Routin | 04/28/2012 | Gallbladder cancer | Results for this | | | e | 8:38 AM | (HCC) | procedure are in the | | | | PDT | | results section. | + +--------+ + + + | DARLENE IONIZED CA, POC | Routin | 04/28/2012 | Gallbladder cancer | Results for this | | | e | 8:38 AM | (HCC) | procedure are in the | | | | PDT | | results section. | + +--------+ + + + | DIAGNOSTIC | Electi | 04/28/2012 | Malignant neoplasm | | | LAPAROSCOPY WITH | ve | 7:36 AM | of gallbladder | | | BIOPSY | Surgic | PDT | (HCC) | | | | al | | | | + +--------+ + + + | LIVER RESECTION | Electi | 04/28/2012 | Malignant neoplasm | | | | ve | 7:36 AM | of gallbladder | | | | Surgic | PDT | (HCC) | | | | al | | | | + +--------+ + + + | SURGICAL PATHOLOGY | Routin | 04/28/2012 | | Results for this | | | e | | | procedure are in the | | | | | | results section. | + +--------+ + + + | RADIOLOGY | | 03/21/2012 | | Results for this | | | | 12:00 AM | | procedure are in the | | | | PST | | results section. | + +--------+ + + + documented in this encounter Results PROCEDURE NOTE (03/20/2015 11:17 PM PST)PROCEDURE NOTE (03/20/2015 11:11 PM PST) + + | Transcriptions | + + | Eli, Faculty - 05/10/2012 10:50 AM PDT | + + RENAL FUNCTION SET (NA,K,CL,CO2,BUN,CREAT,GLUC,CA,PHOS,ALB ) (05/04/2012 6:39 AM PDT) + + + + + + | Component | Value | Ref Range | Performed | Pathologist | | | | | At | Signature | + + + + + + | GLUCOSE, | 90 | 60 - 99 mg/dL | [facility] | | | PLASMA | | | LABORATORY | | | (LAB) | | | SERVICES, | | | | | | CORE | | + + + + + + | BUN, PLASMA | 3 (L) | 6 - 20 mg/dL | [facility] | | | (LAB) | | | LABORATORY | | | | | | SERVICES, | | | | | | CORE | | + + + + + + | CREATININE | 0.51 (L) | 0.60 - 1.10 | [facility] | | | PLASMA | | mg/dL | LABORATORY | | | (LAB) | | | SERVICES, | | | | | | CORE | | + + + + + + | SODIUM, | 140 | 136 - 145 | [facility] | | | PLASMA | | mmol/L | LABORATORY | | | (LAB) | | | SERVICES, | | | | | | CORE | | + + + + + + | POTASSIUM, | 3.8 | 3.4 - 5.0 | [facility] | | | PLASMA | | mmol/L | LABORATORY | | | (LAB) | | | SERVICES, | | | | | | CORE | | + + + + + + | CHLORIDE, | 104 | 97 - 108 mmol/L | [facility] | | | PLASMA | | | LABORATORY | | | (LAB) | | | SERVICES, | | | | | | CORE | | + + + + + + | TOTAL CO2, | 26 | 21 - 32 mmol/L | [facility] | | | PLASMA | | | LABORATORY | | | (LAB) | | | SERVICES, | | | | | | CORE | | + + + + + + | CALCIUM, | 8.2 (L) | 8.6 - 10.2 | [facility] | | | PLASMA | | mg/dL | LABORATORY | | | (LAB) | | | SERVICES, | | | | | | CORE | | + + + + + + | ALBUMIN, | 2.5 (L) | 3.5 - 4.7 g/dL | [facility] | | | PLASMA | | | LABORATORY | | | (LAB) | | | SERVICES, | | | | | | CORE | | + + + + + + | PHOSPHORUS, | 3.4 | 2.4 - 4.7 mg/dL | [facility] | | | PLASMA | | | LABORATORY | | | (LAB) | | | SERVICES, | | | | | | CORE | | + + + + + + | POTASSIUM | No Hemo | | [facility] | | | CMNT | | | LABORATORY | | | | | | SERVICES, | | | | | | CORE | | + + + + + + | ANION GAP | 10 | 4 - 11 mmol/L | [facility] | | | | | | LABORATORY | | | | | | SERVICES, | | | | | | CORE | | + + + + + + | ANION | 13 (H) | 4 - 11 mmol/L | [...] [facility] | [address] | [place] [address] | | | SERVICES, CORE | [address] | | | + + + + + PHOSPHORUS, PLASMA (05/04/2012 6:39 AM PDT) + +-------+ + + + | Component | Value | Ref Range | Performed | Pathologist | | | | | At | Signature | + +-------+ + + + | PHOSPHORUS, | 3.4 | 2.4 - 4.7 mg/dL | [facility] [...] | + + + + + | [facility] | [address] | [place] [address] | | | SERVICES, CORE | [address] | | | + + + + + MAGNESIUM, PLASMA (05/04/2012 6:39 AM PDT) + +-------+ + + + | Component | Value | Ref Range | Performed | Pathologist | | | | | At | Signature | + +-------+ + + + | MAGNESIUM,P | 2.0 | 1.8 - 2.5 mg/dL | [facility] | | | LASMA | | | [...] | + + + + + | [facility] | [address] | [place] [address] | | | SERVICES, CORE | [address] | | | + + + + + RENAL FUNCTION SET (NA,K,CL,CO2,BUN,CREAT,GLUC,CA,PHOS,ALB ) (05/03/2012 6:00 AM PDT) + + + + + + | Component | Value | Ref Range | Performed | Pathologist | | | | | At | Signature | + + + + + + | GLUCOSE, | 94 | 60 - 99 mg/dL | [facility] | | | PLASMA | | | LABORATORY | | | (LAB) | | | SERVICES, | | | | | | CORE | | + + + + + + | BUN, PLASMA | 3 (L) | 6 - 20 mg/dL | [facility] | | | (LAB) | | | LABORATORY | | | | | | SERVICES, | | | | | | CORE | | + + + + + + | CREATININE | 0.51 (L) | 0.60 - 1.10 | [facility] | | | PLASMA | | mg/dL | LABORATORY | | | (LAB) | | | SERVICES, | | | | | | CORE | | + + + + + + | SODIUM, | 141 | 136 - 145 | [facility] | | | PLASMA | | mmol/L | LABORATORY | | | (LAB) | | | SERVICES, | | | | | | CORE | | + + + + + + | POTASSIUM, | 3.2 (L) | 3.4 - 5.0 | [facility] | | | PLASMA | | mmol/L | LABORATORY | | | (LAB) | | | SERVICES, | | | | | | CORE | | + + + + + + | CHLORIDE, | 105 | 97 - 108 mmol/L | [facility] | | | PLASMA | | | LABORATORY | | | (LAB) | | | SERVICES, | | | | | | CORE | | + + + + + + | TOTAL CO2, | 29 | 21 - 32 mmol/L | [facility] | | | PLASMA | | | LABORATORY | | | (LAB) | | | SERVICES, | | | | | | CORE | | + + + + + + | CALCIUM, | 7.8 (L) | 8.6 - 10.2 | [facility] | | | PLASMA | | mg/dL | LABORATORY | | | (LAB) | | | SERVICES, | | | | | | CORE | | + + + + + + | ALBUMIN, | 2.2 (L) | 3.5 - 4.7 g/dL | [facility] | | | PLASMA | | | LABORATORY | | | (LAB) | | | SERVICES, | | | | | | CORE | | + + + + + + | PHOSPHORUS, | 3.1 | 2.4 - 4.7 mg/dL | [facility] | | | PLASMA | | | LABORATORY | | | (LAB) | | | SERVICES, | | | | | | CORE | | + + + + + + | POTASSIUM | No Hemo | | [facility] | | | CMNT | | | LABORATORY | | | | | | SERVICES, | | | | | | CORE | | + + + + + + | ANION GAP | 7 | 4 - 11 mmol/L | [facility] | | | | | | LABORATORY | | | | | | SERVICES, | | | | | | CORE | | + + + + + + | ANION | 11 [...] | + + + + + | [facility] | [address] | [place] [address] | | | GAVIN, SAM | [address] | | | + + + + + PHOSPHORUS, PLASMA (05/03/2012 6:00 AM PDT) + +-------+ + + + | Component | Value | Ref Range | Performed | Pathologist | | | | | At | Signature | + +-------+ + + + | PHOSPHORUS, | 3.1 | 2.4 - 4.7 mg/dL | [facility] [...] [facility] | [address] | [place] [address] | | | SERVICES, CORE | [address] | | | + + + + + MAGNESIUM, PLASMA (05/03/2012 6:00 AM PDT) + +-------+ + + + | Component | Value | Ref Range | Performed | Pathologist | | | | | At | Signature | + +-------+ + + + | MAGNESIUM,P | 1.8 | 1.8 - 2.5 mg/dL | [facility] | | | [facility] | | | LABORATORY | | | [...] + + | [facility] | [address] | [place] [address] | | | SERVICES, CORE | [address] | | | + + + + + RENAL FUNCTION SET (NA,K,CL,CO2,BUN,CREAT,GLUC,CA,PHOS,ALB ) (05/02/2012 5:59 AM PDT) + + + + + + | Component | Value | Ref Range | Performed | Pathologist | | | | | At | Signature | + + + + + + | GLUCOSE, | 108 (H) | 60 - 99 mg/dL | [facility] | | | PLASMA | | | LABORATORY | | | (LAB) | | | SERVICES, | | | | | | CORE | | + + + + + + | BUN, PLASMA | 1 (L) | 6 - 20 mg/dL | [facility] | | | (LAB) | | | LABORATORY | | | | | | SERVICES, | | | | | | CORE | | + + + + + + | CREATININE | 0.49 (L) | 0.60 - 1.10 | [facility] | | | PLASMA | | mg/dL | LABORATORY | | | (LAB) | | | SERVICES, | | | | | | CORE | | + + + + + + | SODIUM, | 141 | 136 - 145 | [facility] | | | PLASMA | | mmol/L | LABORATORY | | | (LAB) | | | SERVICES, | | | | | | CORE | | + + + + + + | POTASSIUM, | 3.1 (L) | 3.4 - 5.0 | [facility] | | | PLASMA | | mmol/L | LABORATORY | | | (LAB) | | | SERVICES, | | | | | | CORE | | + + + + + + | CHLORIDE, | 104 | 97 - 108 mmol/L | [facility] | | | PLASMA | | | LABORATORY | | | (LAB) | | | SERVICES, | | | | | | CORE | | + + + + + + | TOTAL CO2, | 29 | 21 - 32 mmol/L | [facility] | | | PLASMA | | | LABORATORY | | | (LAB) | | | SERVICES, | | | | | | CORE | | + + + + + + | CALCIUM, | 8.0 (L) | 8.6 - 10.2 | [facility] | | | PLASMA | | mg/dL | LABORATORY | | | (LAB) | | | SERVICES, | | | | | | CORE | | + + + + + + | ALBUMIN, | 2.2 (L) | 3.5 - 4.7 g/dL | [facility] | | | PLASMA | | | LABORATORY | | | (LAB) | | | SERVICES, | | | | | | CORE | | + + + + + + | PHOSPHORUS, | 2.5 | 2.4 - 4.7 mg/dL | [facility] | | | PLASMA | | | LABORATORY | | | (LAB) | | | SERVICES, | | | | | | CORE | | + + + + + + | POTASSIUM | No Hemo | | [facility] | | | CMNT | | | LABORATORY | | | | | | SERVICES, | | | | | | CORE | | + + + + + + | ANION GAP | 8 | 4 - 11 mmol/L | [facility] | | | | | | LABORATORY | | | | | | SERVICES, | | | | | | CORE | | + + + + + + | ANION | 12 (H) | 4 - 11 [...] | + + + + + | [facility] | [address] | [place] [address] | | | SERVICES, CORE | [address] | | | + + + + + PHOSPHORUS, PLASMA (05/02/2012 5:59 AM PDT) + +-------+ + + + | Component | Value | Ref Range | Performed | Pathologist | | | | | At | Signature | + +-------+ + + + | PHOSPHORUS, | 2.5 | 2.4 - 4.7 mg/dL | [facility] [...] [facility] | [address] | [place] [address] | | | SERVICES, CORE | [address] | | | + + + + + MAGNESIUM, PLASMA (05/02/2012 5:59 AM PDT) + +-------+ + + + | Component | Value | Ref Range | Performed | Pathologist | | | | | At | Signature | + +-------+ + + + | MAGNESIUM,P | 1.8 | 1.8 - 2.5 mg/dL | [facility] [...] | + + + + + | [facility] | [address] | [place] [address] | | | SERVICES, CORE | [address] | | | + + + + + CAPILLARY BLOOD GLUCOSE (NO CHG), POC (05/01/2012 8:55 PM PDT) + +---------+ + + + | Component | Value | Ref Range | Performed | Pathologist | | | | | At | Signature | + +---------+ + + + | BLOOD | 146 (H) | 60 - 99 mg/dL | [facility] - | | | GLUCOSE, | | | [facility] | | | POC | | | [facility] | | | | | | OF CARE | | | | | | TESTS | | + +---------+ + + + + + | Specimen | + + | | + + + + + + + | Performing | Address | City/State/Zipcode | Phone Number | | Organization | | | | + + + + + | [facility] | [address] | [place], [place] | | | [facility] | [address] | [address] | | | TESTS | | | | + + + + + INR (05/01/2012 10:42 AM PDT) + +-------+ + + + | Component | Value | Ref Range | Performed | Pathologist | | | | | At | Signature | + +-------+ + + + | INR | 1.13 | 0.90 - 1.20 INR | [facility] [...] | + + + + + | [facility] | [address] | [place] [address] | | | SERVICES, CORE | [address] | | | + + + + + CAPILLARY BLOOD GLUCOSE (NO CHG), POC (05/01/2012 8:33 AM PDT) + +---------+ + + + | Component | Value | Ref Range | Performed | Pathologist | | | | | At | Signature | + +---------+ + + + | BLOOD | 110 (H) | 60 - 99 mg/dL | [facility] - | | | GLUCOSE, | | | [facility] | | | POC | | | [facility] | | | | | | OF CARE | | | | | | TESTS | | + +---------+ + + + + + | Specimen | + + | | + + + + + + + | Performing | Address | City/State/Zipcode | Phone Number | | Organization | | | | + + + + + | [facility] | [address] | [place], [place] | | | [facility] | [address] | [address] | | | TESTS | | | | + + + + + PHOSPHORUS, PLASMA (05/01/2012 6:03 AM PDT) + +---------+ + + + | Component | Value | Ref Range | Performed | Pathologist | | | | | At | Signature | + +---------+ + + + | PHOSPHORUS, | 1.9 (L) | 2.4 - 4.7 mg/dL | [...] | + + + + + | [facility] | [address] | [place] [address] | | | SERVICES, CORE | [address] | | | + + + + + MAGNESIUM, PLASMA (05/01/2012 6:03 AM PDT) + +-------+ + + + | Component | Value | Ref Range | Performed | Pathologist | | | | | At | Signature | + +-------+ + + + | MAGNESIUM,P | 1.9 | 1.8 - 2.5 mg/dL | [facility] | | | LASMA | | | [...] | + + + + + | [facility] | [address] | [place] [address] | | | SERVICES, CORE | [address] | | | + + + + + COMPLETE METABOLIC SET (NA,K,CL,CO2,BUN,CREAT,GLUC,CA,AST,ALT,BILI TOTAL,ALK PHOS,ALB,PROT TOTAL) (05/01/2012 6:03 AM PDT) + + + + + + | Component | Value | Ref Range | Performed | Pathologist | | | | | At | Signature | + + + + + + | GLUCOSE, | 96 | 60 - 99 mg/dL | [facility] | | | PLASMA | | | LABORATORY | | | (LAB) | | | SERVICES, | | | | | | CORE | | + + + + + + | BUN, PLASMA | 2 (L) | 6 - 20 mg/dL | [facility] | | | (LAB) | | | LABORATORY | | | | | | SERVICES, | | | | | | CORE | | + + + + + + | CREATININE | 0.48 (L) | 0.60 - 1.10 | [facility] | | | PLASMA | | mg/dL | LABORATORY | | | (LAB) | | | SERVICES, | | | | | | CORE | | + + + + + + | SODIUM, | 139 | 136 - 145 | [facility] | | | PLASMA | | mmol/L | LABORATORY | | | (LAB) | | | SERVICES, | | | | | | CORE | | + + + + + + | POTASSIUM, | 3.5 | 3.4 - 5.0 | [facility] | | | PLASMA | | mmol/L | LABORATORY | | | (LAB) | | | SERVICES, | | | | | | CORE | | + + + + + + | CHLORIDE, | 105 | 97 - 108 mmol/L | [facility] | | | PLASMA | | | LABORATORY | | | (LAB) | | | SERVICES, | | | | | | CORE | | + + + + + + | TOTAL CO2, | 28 | 21 - 32 mmol/L | [facility] | | | PLASMA | | | LABORATORY | | | (LAB) | | | SERVICES, | | | | | | CORE | | + + + + + + | CALCIUM, | 7.1 (L) | 8.6 - 10.2 | [facility] | | | PLASMA | | mg/dL | LABORATORY | | | (LAB) | | | SERVICES, | | | | | | CORE | | + + + + + + | BILIRUBIN | 0.5 | 0.3 - 1.2 mg/dL | [facility] | | | TOTAL | | | LABORATORY | | | | | | SERVICES, | | | | | | CORE | | + + + + + + | TOTAL | 5.0 (L) | 6.1 - 7.9 g/dL | [facility] | | | PROTEIN, | | | LABORATORY | | | PLASMA | | | SERVICES, | | | (LAB) | | | CORE | | + + + + + + | ALBUMIN, | 2.1 (L) | 3.5 - 4.7 g/dL | [facility] | | | PLASMA | | | LABORATORY | | | (LAB) | | | SERVICES, | | | | | | CORE | | + + + + + + | ALK PHOS | 62 | 42 - 98 U/L | [facility] | | | | | | LABORATORY | | | | | | SERVICES, | | | | | | CORE | | + + + + + + | AST(SGOT) | 54 (H) | 15 - 41 U/L | [facility] | | | | | | LABORATORY | | | | | | SERVICES, | | | | | | CORE | | + + + + + + | ALT (SGPT) | 68 (H) | 12 - 60 U/L | [facility] | | | | | | LABORATORY | | | | | | SERVICES, | | | | | | CORE | | + + + + + + | ANION | 10 | 4 - 11 mmol/L | [facility] | | | GAP(ALB | | | LABORATORY | | | CORRECTED) | | | SERVICES, | | | | | | CORE | | + + + + + + | POTASSIUM | No Hemo | | [facility] | | | CMNT | | | LABORATORY | | | | | | SERVICES, | | | | | | CORE | | + + + + + + | BILI T CMNT | No Hemo | | [facility] | | | | | | LABORATORY | | | | | | SERVICES, | | | | | | CORE | | + + + + + + | AST CMNT | No Hemo | | [facility] | | | | | | LABORATORY | | | | | | SERVICES, | | | | | | CORE | | + + + + + + | ANION GAP | 6 | 4 - 11 mmol/L | [facility] [...] | + + + + + | [facility] | [id number] | [place] [address] | | | [address] | [address] | | | + + + + + CAPILLARY BLOOD GLUCOSE (NO CHG), POC (04/30/2012 8:33 PM PDT) + +---------+ + + + | Component | Value | Ref Range | Performed | Pathologist | | | | | At | Signature | + +---------+ + + + | BLOOD | 121 (H) | 60 - 99 mg/dL | [facility] - | | | GLUCOSE, | | | [facility] | | | POC | | | [facility] | | | | | | OF CARE | | | | | | TESTS | | + +---------+ + + + + + | Specimen | + + | | + + + + + + + | Performing | Address | City/State/Zipcode | Phone Number | | Organization | | | | + + + + + | [facility] | [address] | [place], [place] | | | [facility] | [address] | [address] | | | TESTS | | | | + + + + + CAPILLARY BLOOD GLUCOSE (NO CHG), POC (04/30/2012 8:42 AM PDT) + +-------+ + + + | Component | Value | Ref Range | Performed | Pathologist | | | | | At | Signature | + +-------+ + + + | BLOOD | 80 | 60 - 99 mg/dL | [facility] - | | | GLUCOSE, | | | [facility] | | | POC | | | [facility] | | | | | | OF CARE | | | | | | TESTS | | + +-------+ + + + + + | Specimen | + + | | + + + + + + + | Performing | Address | City/State/Zipcode | Phone Number | | Organization | | | | + + + + + | [facility] | [address] | [place], [place] | | | [facility] | [facility] | [address] | | | TESTS | | | | + + + + + CBC (04/30/2012 6:42 AM PDT) + + + + + + | Component | Value | Ref Range | Performed | Pathologist | | | | | At | Signature | + + + + + + | WBC COUNT | 9.1 | 4.4 - 11.0 K/cu | [facility] | | | | | mm | LABORATORY | | | | | | SERVICES, | | | | | | CORE | | + + + + + + | RED CELL | 3.34 (L) | 4.00 - 5.20 | [facility] | | | COUNT | | M/cu mm | LABORATORY | | | | | | SERVICES, | | | | | | CORE | | + + + + + + | HEMOGLOBIN | 9.9 (L) | 12.0 - 16.0 | [facility] | | | | | g/dL | LABORATORY | | | | | | SERVICES, | | | | | | CORE | | + + + + + + | HEMATOCRIT | 29.1 (L) | 36.0 - 46.0 % | [facility] | | | | | | LABORATORY | | | | | | SERVICES, | | | | | | CORE | | + + + + + + | MCV | 87.2 | 80.0 - 96.0 fL | [facility] | | | | | | LABORATORY | | | | | | SERVICES, | | | | | | CORE | | + + + + + + | MCHC | 34.0 | 33.4 - 35.5 | [facility] | | | | | g/dL | LABORATORY | | | | | | SERVICES, | | | | | | CORE | | + + + + + + | RDW | 12.7 | 11.5 - 15.0 % | [facility] | | | | | | LABORATORY | | | | | | SERVICES, | | | | | | CORE | | + + + + + + | PLATELET | 113 (L) | 150 - 400 K/cu | [...] | + + + + + | [facility] | [address] | [place] [address] | | | SERVICES, CORE | [address] | | | + + + + + PHOSPHORUS, PLASMA (04/30/2012 6:42 AM PDT) + +---------+ + + + | Component | Value | Ref Range | Performed | Pathologist | | | | | At | Signature | + +---------+ + + + | PHOSPHORUS, | 1.5 (L) | 2.4 - 4.7 mg/dL | [...] + + + | [facility] | [address] | [place] [address] | | | SERVICES, CORE | [address] | | | + + + + + MAGNESIUM, PLASMA (04/30/2012 6:42 AM PDT) + +-------+ + + + | Component | Value | Ref Range | Performed | Pathologist | | | | | At | Signature | + +-------+ + + + | MAGNESIUM,P | 1.8 | 1.8 - 2.5 mg/dL | [facility] | | | LASMA | | | LABORATORY | | | | | | GAVIN, | | | | | | CORE | | + +-------+ + + + + + | Specimen | + + | Blood - Blood | + + + + + + + | Performing | Address | City/State/Zipcode | Phone Number | | Organization | | | | + + + + + | [facility] | [address] | [place] [address] | | | SERVICES, [facility] [place] | [address] | | | + + + + + COMPLETE METABOLIC SET (NA,K,CL,CO2,BUN,CREAT,GLUC,CA,AST,ALT,BILI TOTAL,ALK PHOS,ALB,PROT TOTAL) (04/30/2012 6:42 AM PDT) + + + + + + | Component | Value | Ref Range | Performed | Pathologist | | | | | At | Signature | + + + + + + | GLUCOSE, | 69 | 60 - 99 mg/dL | [facility] | | | PLASMA | | | LABORATORY | | | (LAB) | | | SERVICES, | | | | | | CORE | | + + + + + + | BUN, PLASMA | 6 | 6 - 20 mg/dL | [facility] | | | (LAB) | | | LABORATORY | | | | | | SERVICES, | | | | | | CORE | | + + + + + + | CREATININE | 0.63 | 0.60 - 1.10 | [facility] | | | PLASMA | | mg/dL | LABORATORY | | | (LAB) | | | SERVICES, | | | | | | CORE | | + + + + + + | SODIUM, | 136 | 136 - 145 | [facility] | | | PLASMA | | mmol/L | LABORATORY | | | (LAB) | | | SERVICES, | | | | | | CORE | | + + + + + + | POTASSIUM, | 3.6 | 3.4 - 5.0 | [facility] | | | PLASMA | | mmol/L | LABORATORY | | | (LAB) | | | SERVICES, | | | | | | CORE | | + + + + + + | CHLORIDE, | 103 | 97 - 108 mmol/L | [facility] | | | PLASMA | | | LABORATORY | | | (LAB) | | | SERVICES, | | | | | | CORE | | + + + + + + | TOTAL CO2, | 27 | 21 - 32 mmol/L | [facility] | | | PLASMA | | | LABORATORY | | | (LAB) | | | SERVICES, | | | | | | CORE | | + + + + + + | CALCIUM, | 7.0 (LL) | 8.6 - 10.2 | [facility] | | | PLASMA | | mg/dL | LABORATORY | | | (LAB) | | | SERVICES, | | | | | | CORE | | + + + + + + | BILIRUBIN | 0.7 | 0.3 - 1.2 mg/dL | [facility] | | | TOTAL | | | LABORATORY | | | | | | SERVICES, | | | | | | CORE | | + + + + + + | TOTAL | 4.6 (L) | 6.1 - 7.9 g/dL | [facility] | | | PROTEIN, | | | LABORATORY | | | PLASMA | | | SERVICES, | | | (LAB) | | | CORE | | + + + + + + | ALBUMIN, | 2.1 (L) | 3.5 - 4.7 g/dL | [facility] | | | PLASMA | | | LABORATORY | | | (LAB) | | | SERVICES, | | | | | | CORE | | + + + + + + | ALK PHOS | 59 | 42 - 98 U/L | [facility] | | | | | | LABORATORY | | | | | | SERVICES, | | | | | | CORE | | + + + + + + | AST(SGOT) | 97 (H) | 15 - 41 U/L | [facility] | | | | | | LABORATORY | | | | | | SERVICES, | | | | | | CORE | | + + + + + + | ALT (SGPT) | 89 (H) | 12 - 60 U/L | [facility] | | | | | | LABORATORY | | | | | | SERVICES, | | | | | | CORE | | + + + + + + | ANION | 10 | 4 - 11 mmol/L | [facility] | | | GAP(ALB | | | LABORATORY | | | CORRECTED) | | | SERVICES, | | | | | | CORE | | + + + + + + | POTASSIUM | No Hemo | | [facility] | | | CMNT | | | LABORATORY | | | | | | SERVICES, | | | | | | CORE | | + + + + + + | BILI T CMNT | No Hemo | | [facility] | | | | | | LABORATORY | | | | | | SERVICES, | | | | | | CORE | | + + + + + + | AST CMNT | No Hemo | | [facility] | | | | | | LABORATORY | | | | | | SERVICES, | | | | | | CORE | | + + + + + + | ANION GAP | 6 | 4 - 11 mmol/L | [facility] [...] [facility] | [address] | [place] [address] | | | SERVICES, CORE | [address] | | | + + + + + OPERATION RECORD (04/29/2012 5:13 PM PDT) + + | Transcriptions | + + | Ruba Muhammad MD - 04/28/2012 10:30 PM PDT Date: | | 04/28/2012ttending Surgeon: Cornelia Knutson M.D.Business Continuity Planning Director(s): | | VENKATA Mcclainreoperative Diagnosis(es):Gallbladder | | cancer.Postoperative Diagnosis(es):Gallbladder cancer.Procedures Performed:Diagnostic | | laparoscopy with biopsies, intraoperative ultrasound, partialsegment 4B and 5 liver | | resection (gallbladder fossa with en bloc portallymphadenectomy).Anesthesia:General | | endotracheal anesthesia with epidural.Estimated Blood Loss:350 cc.Fluids:Crystalloid | | fluid received 2 liters.Urine Output:300 cc.Specimens:1. Cystic duct margin.2. | | Gallbladder fossa. All frozen margins negative for malignancy.3. Segment 5 adjacent | | to portal vein margin negative on frozen.4. Peritoneal lesions x2, no malignancy on | | frozen section.5. Liver lesion biopsy, no malignancy on frozen.Complications:None | | apparent.Drains:None except the López in place.Disposition:Extubated to the | | PACU.Indications:Ms. Upton is a 51-year-old woman with an incidental finding of | | S2lnutgcassrh adenocarcinoma at her recent laparoscopic cholecystectomy foracute | | cholecystitis. Her pathology was reviewed at [facility]. She underwent aCT scan, which | | showed no evidence of residual or metastatic diseasefollowing her cholecystectomy. She | | is indicated for resection of hergallbladder fossa and testing of her cystic duct | | margin.Findings:At diagnostic laparoscopy, a lesion in segment 7 of the liver | | wasidentified, and this was Bovied circumferentially and then removed with abiopsy | | forceps and sent for frozen section. Frozen section was negativefor malignancy. Two | | peritoneal wall lesions were identified, one at thecostal margin, one superior to this | | overlying segment 7. These were bothbiopsied and frozen section was benign on them as | | well. After we returnedto the frozen section information, we proceeded with an open | | operation.Intraoperative ultrasound of the liver did not show any infiltrating massat | | the gallbladder fossa and was basically normal. There was no visibleabnormality of the | | gallbladder. The cystic margin was identified and sentfor frozen section and was | | negative for malignancy, thushepaticojejunostomy was not indicated. The resection went | | smoothly andsome margins, that were frozen, were all negative. The patient toleratedthe | | procedure well.Procedure:Ms. Cerna was properly identified in the preoperative | | holding area. Allof her questions were answered, and she was found ready to go to | | theoperating room. The patient was brought to the operating room and placedon the | | operating table in the supine position. Anesthesia was inducedwithout difficulty and | | lines were placed. The abdomen was then prepped anddraped in the usual sterile fashion. | | A surgical pause was held inaccordance with standard protocol before proceeding with | | the operation.The patient's supraumbilical incision was opened in the center and a | | sutureremoved, which opened the small transverse incision in this site. A Veressneedle | | was inserted through the fascia and the pneumoperitoneum establishedwithout difficulty. | | A 10 mm port was then placed in the supraumbilicalposition. The abdomen was examined | | completely, and the lesion was found insegment 7 of the liver and two peritoneal lesions | | on the abdominal wallsuperior to this. The lateral port sites and superior port sites | | were allexamined and did not appear to have any lesions of concern. Electrocauterywas | | used to circumferentially score the area around the liver lesion andthen a biopsy | | forceps was used to remove this. Hemostasis was accomplishedwith electrocautery. | | Biopsy forceps were used to remove the 2 abdominalwall lesions and electrocautery was | | used to establish hemostasis. Once thefrozen sections returned as benign, we then | | proceeded with a chevronincision after releasing the pneumoperitoneum. The ports were | | removed, ron chevron incision was made using electrocautery and sharp dissection | | toenter the abdomen. An Omni retractor was used throughout the operation.We first | | turned our attention to the gallbladder fossa. There were omentalattachments to the | | gallbladder fossa and a Harmonic scalp was used to leavethese in place and divide the | | attachments. The liver was then mobilized onthe left side all the way around and then | | coming up the right side tocompletely mobilize the liver posteriorly. The dissection | | was carried downto the vena cava dividing the hepatic cava ligament. Suture ligature | | andclips were used to control small crossing vessels. The inferior vena cavawas | | identified and a lymphadenectomy began here rolling the lymph nodes upsuperiorly toward | | the distal portal vein. We then dissected off theanterior aspect of the hilar plate | | from the estevan hepatis. We placed acircumferential umbilical tapes with a Rumel in case | | we needed to perform aPringle maneuver. We then finished the dissection identifying | | the commonbile duct on the right and left branches and identified the cystic duct. | | Aclip was clearly in place. We identified the tissue below this, dividedthe cystic | | duct, and sent a piece of margin, which was ultimately negativeon frozen section. We | | then continued our dissection superiorly bringing upthe portal lymph nodes along the | | inferior and lateral aspects of the portalvein. Next, we turned our attention to the | | liver and scored a wide areaapproximately 2 cm from the gallbladder fossa | | circumferentially. Usingelectrocautery, clips, and the Harmonic scalpel, we divided the | | livercoming down from a top-down fashion circumferentially clipping any bridgingvessels | | or ducts. This dissection was carried down and then brought outjust medial to the | | cleft of segment 6. The lymphadenectomy was thencarried down along the portal vein from | | a lateral to medial meeting ourprevious dissection ensuring we had a maximal number of | | lymph nodes in thisarea. This lymphadenectomy extended from the duodenum all the way up | | tothe liver. The specimen was marked and sent to Pathology. Margins werefrozen and | | all negative. Hemostasis was accomplished on the liver withelectrocautery and a small | | piece of Surgicel. The area was then irrigated.Once we knew that all of our margins | | were negative, we turned the abdominalcontents to their normal position. The fascia | | where the 10 mm port wasclosed such that there was no defect. A double-layer closure of | | thechevron incision was performed. The subcutaneous tissue was washed out andloose | | rosie were used to reapproximate the skin. At the completion ofthe case, all needle, | | sponge, and instrument counts were correct. Dr.Brett Knutson was scrubbed and actively | | involved in the critical portionsof the procedure. At the end of the case, the patient | | was extubated andbrought to the PACU in stable condition.Ruba Lam MDI | | was present for the critical portions of this procedure and final inspection for RSI | | was completed.Cornelia Knutson M.D.[employer] ([facility])Professor | | and Vice-[employer] of SurgeryThe Shahriar Nava Chair for Pancreatic Disease | | ResearchPancreatic/ HepatoBiliary and Foregut Working GroupsMail Code [id number] [facility] | | [place], [place]. [phone] Fax ([phone] | | [phone]: [email or web address] M.[email or web address].Professor and Vice-[employer] of | | SurgeryThe Shahriar Nava Chair for Pancreatic Disease ResearchVanderbilt University [facility] | | [place] ([facility])Division of Gastrointestinal and General Surgery / [id number] / | | [id number] / [id number] / T: 04/28/2012 | |with electrocautery. Biopsy forceps were used to remove the 2 abdominal | |wall lesions and electrocautery was used to establish hemostasis. Once the | |frozen sections returned as benign, we then proceeded with a chevron | |incision after releasing the pneumoperitoneum. The ports were removed, and | |a chevron incision was made using electrocautery and sharp dissection to | |enter the abdomen. An Omni retractor was used throughout the operation. | |We first turned our attention to the gallbladder fossa. There were omental | |attachments to the gallbladder fossa and a Harmonic scalp was used to leave | |these in place and divide the attachments. The liver was then mobilized on | |the left side all the way around and then coming up the right side to | |completely mobilize the liver posteriorly. The dissection was carried down | |to the vena cava dividing the hepatic cava ligament. Suture ligature and | |clips were used to control small crossing vessels. The inferior vena cava | |was identified and a lymphadenectomy began here rolling the lymph nodes up | |superiorly toward the distal portal vein. We then dissected off the | |anterior aspect of the hilar plate from the estevan hepatis. We placed a | |circumferential umbilical tapes with a Rumel in case we needed to perform a | |[place] maneuver. We then finished the dissection identifying the common | |bile duct on the right and left branches and identified the cystic duct. A | |clip was clearly in place. We identified the tissue below this, divided | |the cystic duct, and sent a piece of margin, which was ultimately negative | |on frozen section. We then continued our dissection superiorly bringing up | |the portal lymph nodes along the inferior and lateral aspects of the portal | |vein. Next, we turned our attention to the liver and scored a wide area | |approximately 2 cm from the gallbladder fossa circumferentially. Using | |electrocautery, clips, and the Harmonic scalpel, we divided the liver | |coming down from a top-down fashion circumferentially clipping any bridging | |vessels or ducts. This dissection was carried down and then brought out | |just medial to the cleft of segment 6. The lymphadenectomy was then | |carried down along the portal vein from a lateral to medial meeting our | |previous dissection ensuring we had a maximal number of lymph nodes in this | |area. This lymphadenectomy extended from the duodenum all the way up to | |the liver. The specimen was marked and sent to Pathology. Margins were | |frozen and all negative. Hemostasis was accomplished on the liver with | |electrocautery and a small piece of Surgicel. The area was then irrigated. | |Once we knew that all of our margins were negative, we turned the abdominal | |contents to their normal position. The fascia where the 10 mm port was | |closed such that there was no defect. A double-layer closure of the | |chevron incision was performed. The subcutaneous tissue was washed out and | |loose rosie were used to reapproximate the skin. At the completion of | |the case, all needle, sponge, and instrument counts were correct. . | |Cornelia Knutson was scrubbed and actively involved in the critical portions | |of the procedure. At the end of the case, the patient was extubated and | |brought to the PACU in stable condition. | | | | | |Ruba Lam MD | |I was present for the critical portions of this procedure and final inspection for RSI wa s completed. | | | |Cornelia Knutson M.D. | |[facility] ([facility]) | |Professor and Vice-[employer] of Surgery | |The Shahriar Nava Chair for Pancreatic Disease Research | |Pancreatic/ HepatoBiliary and Foregut Working Groups | |Mail Code [id number] | |[address] [place] [address] | |[place], [place]. [address] | | | | | |email: [email or web address] | | | | | |Cornelia Knutson M.D. | |Professor and Vice-[employer] of Surgery | |The Shahriar Nava Chair for Pancreatic Disease Research | |[facility] ([facility]) | |Division of Gastrointestinal and General Surgery | | | |JS / HS | |[id number] / [id number] / [id number] / | | | | | + + CBC (04/29/2012 1:43 AM PDT) + + + + + + | Component | Value | Ref Range | Performed | Pathologist | | | | | At | Signature | + + + + + + | WBC COUNT | 10.5 | 4.4 - 11.0 K/cu | [facility] | | | | | mm | LABORATORY | | | | | | SERVICES, | | | | | | CORE | | + + + + + + | RED CELL | 3.69 (L) | 4.00 - 5.20 | [facility] | | | COUNT | | M/cu mm | LABORATORY | | | | | | SERVICES, | | | | | | CORE | | + + + + + + | HEMOGLOBIN | 10.9 (L) | 12.0 - 16.0 | [facility] | | | | | g/dL | LABORATORY | | | | | | SERVICES, | | | | | | CORE | | + + + + + + | HEMATOCRIT | 32.5 (L) | 36.0 - 46.0 % | [facility] | | | | | | LABORATORY | | | | | | SERVICES, | | | | | | CORE | | + + + + + + | MCV | 88.1 | 80.0 - 96.0 fL | [facility] | | | | | | LABORATORY | | | | | | SERVICES, | | | | | | CORE | | + + + + + + | MCHC | 33.5 | 33.4 - 35.5 | [facility] | | | | | g/dL | LABORATORY | | | | | | SERVICES, | | | | | | CORE | | + + + + + + | RDW | 12.9 | 11.5 - 15.0 % | [facility] | | | | | | LABORATORY | | | | | | SERVICES, | | | | | | CORE | | + + + + + + | PLATELET | 118 (L) | 150 - 400 K/cu | [...] [facility] | [address] | [place] [address] | | | SERVICES, CORE | [address] | | | + + + + + PHOSPHORUS, PLASMA (04/29/2012 1:43 AM PDT) + +-------+ + + + | Component | Value | Ref Range | Performed | Pathologist | | | | | At | Signature | + +-------+ + + + | PHOSPHORUS, | 3.3 | 2.4 - 4.7 mg/dL | [facility] [...] | + + + + + | [facility] | [address] | [place] [address] | | | SERVICES, CORE | [address] | | | + + + + + MAGNESIUM, PLASMA (04/29/2012 1:43 AM PDT) + +-------+ + + + | Component | Value | Ref Range | Performed | Pathologist | | | | | At | Signature | + +-------+ + + + | MAGNESIUM,P | 2.5 | 1.8 - 2.5 mg/dL | [facility] [...] | + + + + + | [facility] | [address] | [place] [address] | | | SERVICES, CORE | [address] | | | + + + + + COMPLETE METABOLIC SET (NA,K,CL,CO2,BUN,CREAT,GLUC,CA,AST,ALT,BILI TOTAL,ALK PHOS,ALB,PROT TOTAL) (04/29/2012 1:43 AM PDT) + + + + + + | Component | Value | Ref Range | Performed | Pathologist | | | | | At | Signature | + + + + + + | GLUCOSE, | 94 | 60 - 99 mg/dL | [facility] | | | PLASMA | | | LABORATORY | | | (LAB) | | | SERVICES, | | | | | | CORE | | + + + + + + | BUN, PLASMA | 13 | 6 - 20 mg/dL | [facility] | | | (LAB) | | | LABORATORY | | | | | | SERVICES, | | | | | | CORE | | + + + + + + | CREATININE | 0.77 | 0.60 - 1.10 | [facility] | | | PLASMA | | mg/dL | LABORATORY | | | (LAB) | | | SERVICES, | | | | | | CORE | | + + + + + + | SODIUM, | 138 | 136 - 145 | [facility] | | | PLASMA | | mmol/L | LABORATORY | | | (LAB) | | | SERVICES, | | | | | | CORE | | + + + + + + | POTASSIUM, | 4.2 | 3.4 - 5.0 | [facility] | | | PLASMA | | mmol/L | LABORATORY | | | (LAB) | | | SERVICES, | | | | | | CORE | | + + + + + + | CHLORIDE, | 106 | 97 - 108 mmol/L | [facility] | | | PLASMA | | | LABORATORY | | | (LAB) | | | SERVICES, | | | | | | CORE | | + + + + + + | TOTAL CO2, | 26 | 21 - 32 mmol/L | [facility] | | | PLASMA | | | LABORATORY | | | (LAB) | | | SERVICES, | | | | | | CORE | | + + + + + + | CALCIUM, | 7.0 (LL) | 8.6 - 10.2 | [facility] | | | PLASMA | | mg/dL | LABORATORY | | | (LAB) | | | SERVICES, | | | | | | CORE | | + + + + + + | BILIRUBIN | 1.0 | 0.3 - 1.2 mg/dL | [facility] | | | TOTAL | | | LABORATORY | | | | | | SERVICES, | | | | | | CORE | | + + + + + + | TOTAL | 4.4 (L) | 6.1 - 7.9 g/dL | [facility] | | | PROTEIN, | | | LABORATORY | | | PLASMA | | | SERVICES, | | | (LAB) | | | CORE | | + + + + + + | ALBUMIN, | 2.2 (L) | 3.5 - 4.7 g/dL | [facility] | | | PLASMA | | | LABORATORY | | | (LAB) | | | SERVICES, | | | | | | CORE | | + + + + + + | ALK PHOS | 58 | 42 - 98 U/L | [facility] | | | | | | LABORATORY | | | | | | SERVICES, | | | | | | CORE | | + + + + + + | AST(SGOT) | 135 (H) | 15 - 41 U/L | [facility] | | | | | | LABORATORY | | | | | | SERVICES, | | | | | | CORE | | + + + + + + | ALT (SGPT) | 111 (H) | 12 - 60 U/L | [facility] | | | | | | LABORATORY | | | | | | SERVICES, | | | | | | CORE | | + + + + + + | ANION | 10 | 4 - 11 mmol/L | [facility] | | | GAP(ALB | | | LABORATORY | | | CORRECTED) | | | SERVICES, | | | | | | CORE | | + + + + + + | POTASSIUM | No Hemo | | [facility] | | | CMNT | | | LABORATORY | | | | | | SERVICES, | | | | | | CORE | | + + + + + + | BILI T CMNT | No Hemo | | [facility] | | | | | | LABORATORY | | | | | | SERVICES, | | | | | | CORE | | + + + + + + | AST CMNT | No Hemo | | [facility] | | | | | | LABORATORY | | | | | | SERVICES, | | | | | | CORE | | + + + + + + | ANION GAP | 6 | 4 - 11 mmol/L | [facility] [...] | + + + + + | [facility] | [address] | [place] [address] | | | SERVICES, CORE | [address] | | | + + + + + X-RAY PORTABLE CHEST 1 VIEW (04/28/2012 3:02 PM PDT) + + + + + + | Component | Value | Ref Range | Performed | Pathologist | | | | | At | Signature | + + + + + + | X-RAY | AP chest Comparison: | | | | | PORTABLE | None. History: Right IJ | | | | | CHEST 1 | central line placement | | | | | VIEW | Findings: Right internal | | | | | | jugular central line | | | | | | placed with tip in | | | | | | [facility]. No | | | | | | pneumothorax or | | | | | | effusion. Clear lungs. | | | | | | Normalcardiac and | | | | | | mediastinal contours. | | | | | | Attending Radiologists: | | | | | | SATHISH CASTILLO MDAuthor: | | | | | | SATHISH CASTILLO MD I have | | | | | | personally viewed this | | | | | | procedure/exam, reviewed | | | | | | this report,and made | | | | | | changes to it where | | | | | | appropriate. | | | | | | Final/Electronically | | | | | | signed / SATHISH CASTILLO | | | | | | 04/28/2012 15:48 PM | | | | + + + + + + + + | Specimen | + + | | + + + +---------+ + + | Performing | Address | City/State/Zipcode | Phone Number | | Organization | | | | + +---------+ + + | [facility] DEPARTMENT OF | | | | | RADIOLOGY | | | | + +---------+ + + PHOSPHORUS, PLASMA (04/28/2012 2:34 PM PDT) + +-------+ + + + | Component | Value | Ref Range | Performed | Pathologist | | | | | At | Signature | + +-------+ + + + | PHOSPHORUS, | 3.2 | 2.4 - 4.7 mg/dL | [facility] [...] [facility] | [address] | [place] [address] | | | SERVICES, CORE | [address] | | | + + + + + CBC (04/28/2012 2:34 PM PDT) + +-------+ + + + | Component | Value | Ref Range | Performed | Pathologist | | | | | At | Signature | + +-------+ + + + | WBC COUNT | 11.0 | 4.4 - 11.0 K/cu | [facility] | | | | | mm | LABORATORY | | | | | | SERVICES, | | | | | | CORE | | + +-------+ + + + | RED CELL | 4.30 | 4.00 - 5.20 | [facility] | | | COUNT | | M/cu mm | LABORATORY | | | | | | SERVICES, | | | | | | CORE | | + +-------+ + + + | HEMOGLOBIN | 12.8 | 12.0 - 16.0 | [facility] | | | | | g/dL | LABORATORY | | | | | | SERVICES, | | | | | | CORE | | + +-------+ + + + | HEMATOCRIT | 37.4 | 36.0 - 46.0 % | [facility] | | | | | | LABORATORY | | | | | | SERVICES, | | | | | | CORE | | + +-------+ + + + | MCV | 87.1 | 80.0 - 96.0 fL | [facility] | | | | | | LABORATORY | | | | | | SERVICES, | | | | | | CORE | | + +-------+ + + + | MCHC | 34.3 | 33.4 - 35.5 | [facility] | | | | | g/dL | LABORATORY | | | | | | SERVICES, | | | | | | CORE | | + +-------+ + + + | RDW | 13.2 | 11.5 - 15.0 % | [facility] | | | | | | LABORATORY | | | | | | SERVICES, | | | | | | CORE | | + +-------+ + + + | PLATELET | 153 | 150 - 400 K/cu | [facility] [...] | + + + + + | [facility] | [address] | [place] [address] | | | SERVICES, CORE | [address] | | | + + + + + MAGNESIUM, PLASMA (04/28/2012 2:34 PM PDT) + +---------+ + + + | Component | Value | Ref Range | Performed | Pathologist | | | | | At | Signature | + +---------+ + + + | MAGNESIUM,P | 1.4 (L) | 1.8 - 2.5 mg/dL | [...] | + + + + + | [facility] | [address] | [place] [address] | | | SERVICES, CORE | [address] | | | + + + + + COMPLETE METABOLIC SET (NA,K,CL,CO2,BUN,CREAT,GLUC,CA,AST,ALT,BILI TOTAL,ALK PHOS,ALB,PROT TOTAL) (04/28/2012 2:34 PM PDT) + +---------+ + + + | Component | Value | Ref Range | Performed | Pathologist | | | | | At | Signature | + +---------+ + + + | GLUCOSE, | 116 (H) | 60 - 99 mg/dL | [facility] | | | PLASMA | | | LABORATORY | | | (LAB) | | | SERVICES, | | | | | | CORE | | + +---------+ + + + | BUN, PLASMA | 13 | 6 - 20 mg/dL | [facility] [...] +---------+ + + + | SODIUM, | 140 | 136 - 145 | [facility] | [...] +---------+ + + + | CHLORIDE, | 108 | 97 - 108 mmol/L | [facility] | | | PLASMA | | | LABORATORY | | | (LAB) | | | SERVICES, | | | | | | CORE | | + +---------+ + + + | TOTAL CO2, | 24 | 21 - 32 mmol/L | [facility] | | | PLASMA | | | LABORATORY | | | (LAB) | | | SERVICES, | | | | | | CORE | | + +---------+ + + + | CALCIUM, | 7.4 (L) | 8.6 - 10.2 | [facility] | | | PLASMA | | mg/dL | LABORATORY | | | (LAB) | | | SERVICES, | | | | | | CORE | | + +---------+ + + + | BILIRUBIN | 1.0 | 0.3 - 1.2 mg/dL | [facility] | | | TOTAL | | | LABORATORY | | | | | | SERVICES, | | | | | | CORE | | + +---------+ + + + | TOTAL | 5.4 (L) | 6.1 - 7.9 g/dL | [facility] | | | PROTEIN, | | | LABORATORY | | | PLASMA | | | SERVICES, | | | (LAB) | | | CORE | | + +---------+ + + + | ALBUMIN, | 3.0 (L) | 3.5 - 4.7 g/dL | [facility] | | | PLASMA | | | LABORATORY | | | (LAB) | | | SERVICES, | | | | | | CORE | | + +---------+ + + + | ALK PHOS | 82 | 42 - 98 U/L | [facility] | | | | | | LABORATORY | | | | | | SERVICES, | | | | | | CORE | | + +---------+ + + + | AST(SGOT) | 145 (H) | 15 - 41 U/L | [facility] | | | | | | LABORATORY | | | | | | SERVICES, | | | | | | CORE | | + +---------+ + + + | ALT (SGPT) | 114 (H) | 12 - 60 U/L | [facility] [...] + | ANION GAP | 8 | 4 - 11 mmol/L [...] | + + + + + | [facility] | [address] | [place] [address] | | | SERVICES, CORE | [address] | | | + + + + + INR (04/28/2012 2:34 PM PDT) + +-------+ + + + | Component | Value | Ref Range | Performed | Pathologist | | | | | At | Signature | + +-------+ + + + | INR | 1.11 | 0.90 - 1.20 INR | [facility] | | | | | | LABORATORY [...] | + + + + + | [facility] | [address] | [place] [address] | | | SAM ALONSO | [address] | | | + + + + + LACTATE (ART), POC SOR (04/28/2012 8:38 AM PDT) + +-------+ + + + | Component | Value | Ref Range | Performed | Pathologist | | | | | At | Signature | + +-------+ + + + | LACTATE POC | 1.0 | 0.5 - 1.6 | [facility] | | | | | mmol/L | [facility] | | | | | | [facility] | | | | | | OF CARE | | | | | | TESTS | | + +-------+ + + + + + | Specimen | + + | | + + + + + + + | Performing | Address | City/State/Zipcode | Phone Number | | Organization | | | | + + + + + | [facility] | [address] | [place], [place] | | | [facility] | [address] | [address] | | | TESTS | | | | + + + + + SODIUM (ART), POC SOR (04/28/2012 8:38 AM PDT) + +-------+ + + + | Component | Value | Ref Range | Performed | Pathologist | | | | | At | Signature | + +-------+ + + + | SODIUM, POC | 141 | 134 - 143 | [facility] | | | | | mmol/L | [facility] | | | | | | [facility] | | | | | | OF CARE | | | | | | TESTS | | + +-------+ + + + + + | Specimen | + + | | + + + + + + + | Performing | Address | City/State/Zipcode | Phone Number | | Organization | | | | + + + + + | [facility] | [address] | [place], [place] | | | [facility] | [address] | [address] | | | TESTS | | | | + + + + + POTASSIUM (ART), POC SOR (04/28/2012 8:38 AM PDT) + +-------+ + + + | Component | Value | Ref Range | Performed | Pathologist | | | | | At | Signature | + +-------+ + + + | POTASSIUM, | 4.2 | 3.4 - 5.0 | [facility] | | | POC | | mmol/L | [facility] | | | | | | [facility] | | | | | | OF CARE | | | | | | TESTS | | + +-------+ + + + + + | Specimen | + + | | + + + + + + + | Performing | Address | City/State/Zipcode | Phone Number | | Organization | | | | + + + + + | [facility] | [address] | [place], [place] | | | [facility] | [address] | [address] | | | TESTS | | | | + + + + + GLUCOSE (ART), POC SOR (04/28/2012 8:38 AM PDT) + +---------+ + + + | Component | Value | Ref Range | Performed | Pathologist | | | | | At | Signature | + +---------+ + + + | GLUCOSE, | 107 (H) | 60 - 99 mg/dL | [facility] | | | POC | | | [facility] | | | | | | [facility] | | | | | | OF CARE | | | | | | TESTS | | + +---------+ + + + + + | Specimen | + + | | + + + + + + + | Performing | Address | City/State/Zipcode | Phone Number | | Organization | | | | + + + + + | [facility] | [address] | [place], [place] | | | [facility] | [address] | [address] | | | TESTS | | | | + + + + + CHLORIDE (ART)MAYLIN SOR (04/28/2012 8:38 AM PDT) + +-------+ + + + | Component | Value | Ref Range | Performed | Pathologist | | | | | At | Signature | + +-------+ + + + | CHLORIDE, | 104 | 97 - 108 mmol/L | [facility] | | | POC | | | [facility] | | | | | | [facility] | | | | | | OF CARE | | | | | | TESTS | | + +-------+ + + + + + | Specimen | + + | | + + + + + + + | Performing | Address | City/State/Zipcode | Phone Number | | Organization | | | | + + + + + | [facility] | [address] | [place], [place] | | | [facility] | [address] | [address] | | | TESTS | | | | + + + + + CALCIUM (ART), POC SOR (04/28/2012 8:38 AM PDT) + +-------+ + + + | Component | Value | Ref Range | Performed | Pathologist | | | | | At | Signature | + +-------+ + + + | DARLENE | 1.21 | 1.14 - 1.32 | [facility] | | | IONIZED CA, | | mmol/L | [facility] | | | POC | | | [facility] | | | | | | OF CARE | | | | | | TESTS | | + +-------+ + + + + + | Specimen | + + | | + + + + + + + | Performing | Address | City/State/Zipcode | Phone Number | | Organization | | | | + + + + + | [facility] | [address] | [place], [place] | | | [facility] | [address] | [address] | | | TESTS | | | | + + + + + HEMOGLOBIN (ART), POC SOR (04/28/2012 8:38 AM PDT) + +-------+ + + + | Component | Value | Ref Range | Performed | Pathologist | | | | | At | Signature | + +-------+ + + + | TOTAL | 13.0 | 12.0 - 16.0 | [facility] | | | HEMOGLOBIN, | | g/dL | [facility] | | | POC | | | [facility] | | | | | | OF CARE | | | | | | TESTS | | + +-------+ + + + | OXYHEMOGLOB | 99.6 | 94.0 - 100 % | [facility] | | | IN, POC | | | [facility] | | | | | | [facility] | | | | | | OF CARE | | | | | | TESTS | | + +-------+ + + + | CARBOXYHEMO | 0.5 | 0.0 - 1.5 % | [facility] - | | | GLOBIN, POC | | | [facility] | | | | | | DG POINT | | | | | | OF CARE | | | | | | TESTS | | + +-------+ + + + | METHEMOGLOB | 0.3 | 0.0 - 1.9 % | [facility] - | | | IN, POC | | | [facility] | | | | | | DG POINT | | | | | | OF CARE | | | | | | TESTS | | + +-------+ + + + | HEMATOCRIT, | 40.0 | 36.0 - 46.0 % | [facility] | | | POC | | | [facility] | | | | | | [facility] | | | | | | OF CARE | | | | | | TESTS | | + +-------+ + + + + + | Specimen | + + | | + + + + + + + | Performing | Address | City/State/Zipcode | Phone Number | | Organization | | | | + + + + + | [facility] | [address] | [place], [place] | | | [facility] | [facility] | [address] | | | TESTS | | | | + + + + + ARTERIAL BLOOD GAS, POC (04/28/2012 8:38 AM PDT) + + + + + + | Component | Value | Ref Range | Performed | Pathologist | | | | | At | Signature | + + + + + + | PH | 7.36 (L) | 7.37 - 7.44 | [facility] - | | | ARTERIAL, | | | [facility] | | | POC | | | [facility] | | | | | | OF CARE | | | | | | TESTS | | + + + + + + | PO2 | 503 (H) | 72 - 104 mmHg | [facility] | | | ARTERIAL, | | | [facility] | | | POC | | | [place] PO[facility] | | | | | | OF CARE | | | | | | TESTS | | + + + + + + | PCO2 | 46 (H) | 32 - 43 mmHg | [facility] | | | ARTERIAL, | | | [facility] | | | POC | | | [place] | | | | | | OF CARE | | | | | | TESTS | | + + + + + + | O2 SAT | 100.4 (H) | 92.0 - 98.0 % | [facility] | | | ARTERIAL, | | | [facility] | | | POC | | | [place] | | | | | | OF CARE | | | | | | TESTS | | + + + + + + | HCO3 | 25.9 | 21 - 28 mmol/L | [facility] - | | | ARTERIAL, | | | [facility] | | | POC | | | [facility] | | | | | | OF CARE | | | | | | TESTS | | + + + + + + + + | Specimen | + + | | + + + + + + + | Performing | Address | City/State/Zipcode | Phone Number | | Organization | | | | + + + + + | [facility] | [address] | [place], [place] | | | [facility] | [address] | [address] | | | TESTS | | | | + + + + + SURGICAL PATHOLOGY (04/28/2012) + + + + + + | Component | Value | Ref Range | Performed | Pathologist | | | | | At | Signature | + + + + + + | SURGICAL | THIS IS AN AMENDED | | [facility] | | | PATHOLOGY | REPORT SOURCE OF | | DEPARTMENT | | | | SPECIMEN:A Right costal | | OF | | | | margin peritoneal lesion | | PATHOLOGY | | | | FSSOURCE OF SPECIMEN:B | | | | | | Segment 7 biopsy | | | | | | FSSOURCE OF SPECIMEN:C | | | | | | Abdominal wall overlying | | | | | | FSSOURCE OF SPECIMEN:D | | | | | | Cystic duct FSSOURCE OF | | | | | | SPECIMEN:E Gallbladder | | | | | | bed resection FSSOURCE | | | | | | OF SPECIMEN:F | | | | | | Gallbladder bed | | | | | | resection FS Final | | | | | | Pathologic | | | | | | Diagnosis:Amendment: | | | | | | The purpose of this | | | | | | amendment is to add more | | | | | | lymph nodes forspecimen | | | | | | E. The total number of | | | | | | lymph nodes was changed | | | | | | to 8. The remainingfinal | | | | | | diagnosis is unchanged. | | | | | | A: Right costal | | | | | | margin, peritoneal | | | | | | lesion, biopsy: - | | | | | | Fat necrosis and | | | | | | surgical site changes, | | | | | | negative for malignancy | | | | | | B: Segment 7, | | | | | | biopsy:- Liver | | | | | | parenchyma and fibrous | | | | | | tissue with chronic | | | | | | inflammation and | | | | | | focalnecrosis, negative | | | | | | for malignancy C: | | | | | | Abdominal wall | | | | | | overlying, biopsy: | | | | | | - Fibrous tissue with | | | | | | surgical site changes, | | | | | | negative for malignancy | | | | | | - Unremarkable | | | | | | skeletal muscle D: | | | | | | Cystic duct, | | | | | | excision: - Cystic | | | | | | duct negative for | | | | | | dysplasia and malignancy | | | | | | E: Gallbladder | | | | | | bed, resection: - | | | | | | Liver parenchyma with | | | | | | surgical site changes, | | | | | | negative for malignancy- | | | | | | 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), with | | | | | | largestdeposit 0.5 cm | | | | | | F: Gallbladder | | | | | | bed, resection: - | | | | | | Liver parenchyma with | | | | | | surgical site changes, | | | | | | negative for malignancy | | | | | | Case seen | | | | | | by:Tatyana Acuna | | | | | | Tom Bello/Surgical | | | | | | Pathology FellowWei | | | | | | Maycol Salinas/Pathologist | | | | | | Amendment seen | | | | | | by:Maxime Salinas, | | | | | | M.D./PathologistT: | | | | | | | | | | | | Intraoperative Consult | | | | | | (Frozen Section) | | | | | | Diagnosis:Right costal | | | | | | margin peritoneal lesion | | | | | | (specimen A): - | | | | | | Abundant histocytic | | | | | | infiltrate and mixed | | | | | | inflammation, negative | | | | | | formalignancySegment 7 | | | | | | biopsy (specimen B): | | | | | | - Focal necrosis and | | | | | | granulomatous | | | | | | inflammation, negative | | | | | | formalignancyAbdominal | | | | | | wall overlying segment 7 | | | | | | (specimen C): - | | | | | | Abundant granulomatous | | | | | | inflammation, negative | | | | | | for malignancy | | | | | | Intraoperative consult | | | | | | diagnosis confirmed by: | | | | | | Maxime Salinas, | | | | | | M.D./Pathologist | | | | | | Cystic duct margin | | | | | | (specimen D): - | | | | | | Negative for malignancy | | | | | | Intraoperative | | | | | | consult diagnosis | | | | | | confirmed by: Jamarcus | | | | | | Long/Student Fellowand | | | | | | Maxime Salinas, | | | | | | M.D./Pathologist | | | | | | Gallbladder bed | | | | | | resection (specimen E) | | | | | | (FSE1-2):Double black | | | | | | deep radial margin (blue | | | | | | ink) (FSE1): - | | | | | | Negative for | | | | | | malignancySingle blue | | | | | | liver margin-medial | | | | | | (orange) (FSE1): - | | | | | | Negative for | | | | | | malignancyDouble blue | | | | | | lateral liver margin | | | | | | (purple) (FSE2): - | | | | | | Negative for | | | | | | malignancyBlue looped | | | | | | superficial radial | | | | | | margin (black) (FSE2): | | | | | | - Negative for | | | | | | malignancy | | | | | | Gallbladder bed | | | | | | resection #2 (specimen | | | | | | F): - Negative for | | | | | | malignancy | | | | | | Intraoperative consult | | | | | | diagnosis confirmed by: | | | | | | Marily Allen, | | | | | | P.A.(ASCP), Smitha Diane | | | | | | Goyo P.A. (ASCP), and | | | | | | Maxime Salinas, | | | | | | M.D./Pathologist | | | | | | Clinical History:The | | | | | | patient is a 51-year-old | | | | | | female with gallbladder | | | | | | cancer, status | | | | | | postlaparoscopic | | | | | | cholecystectomy. | | | | | | Gross | | | | | | Description:Received are | | | | | | 6 specimens fresh in | | | | | | containers labeled with | | | | | | the patient'sname | | | | | | (initials MM) and: | | | | | | A: Right costal | | | | | | margin peritoneal | | | | | | lesion: Received is a | | | | | | del rio-pink, 1 x 0.5x 0.5 | | | | | | cm tissue, submitted | | | | | | entirely for frozen | | | | | | section diagnosis | | | | | | andresubmitted in toto. | | | | | | B: Segment 7 | | | | | | biopsy: Received are 3 | | | | | | del rio-red to ackerman-white, | | | | | | soft tissue,measuring | | | | | | 0.9 x 0.9 x 0.5 cm in | | | | | | aggregate. The | | | | | | specimen is | | | | | | submittedentirely for | | | | | | frozen section diagnosis | | | | | | and resubmitted in | | | | | | toto. C: | | | | | | Abdominal wall | | | | | | overlying segment 7: | | | | | | Received is a | | | | | | brown-white, softtissue, | | | | | | measuring 0.6 x 0.4 x | | | | | | 0.2 cm. The entire | | | | | | specimen is submitted | | | | | | forfrozen section | | | | | | diagnosis and | | | | | | resubmitted in toto. | | | | | | D: Cystic duct: | | | | | | Received is a | | | | | | del rio-pink, tubular, soft | | | | | | piece of tissuemeasuring | | | | | | 0.6 x 0.5 x 0.2 cm. A | | | | | | blue orienting suture | | | | | | chan the cysticduct | | | | | | margin which is inked | | | | | | black. The entire | | | | | | specimen is submitted | | | | | | forfrozen section | | | | | | diagnosis and | | | | | | resubmitted in toto. | | | | | | E: Gallbladder bed | | | | | | resection: Received is | | | | | | a 9 (SI) x 5.5 (ML) x | | | | | | 2.8 (AP)cm overall | | | | | | resection specimen. | | | | | | The specimen contains | | | | | | a portion of liverwhich | | | | | | measures 6.5 (SI) x 5.5 | | | | | | (ML) x 2.8 (AP) cm. | | | | | | Attached to the liver | | | | | | karey yellow-red, | | | | | | lobulated piece of fat | | | | | | measuring 4 x 4 x 2.5 | | | | | | cm. Orientingsutures | | | | | | indicate black stitch = | | | | | | terminus duodenum, | | | | | | double black = | | | | | | deepradial liver margin, | | | | | | single blue = liver | | | | | | margin-medial, double | | | | | | blue =lateral liver | | | | | | margin, blue looped = | | | | | | superficial radial | | | | | | margin. Thespecimen is | | | | | | inked according to the | | | | | | color scheme: | | | | | | medial=orange,lateral= | | | | | | purple, superior | | | | | | (anterior)=blue, | | | | | | inferior | | | | | | (posterior)=green,deep=b | | | | | | lack. The stitch | | | | | | marked superficial | | | | | | radial but it is the | | | | | | anteriorsurface opposite | | | | | | the gallbladder bed. | | | | | | Wire Brush Operator | | | | | | sections aresubmitted | | | | | | for frozen section | | | | | | diagnosis and | | | | | | resubmitted in toto. | | | | | | Theportion of liver | | | | | | contains a smooth | | | | | | red-purple capsular | | | | | | surface measuring5.3 x | | | | | | 2.5 cm and is grossly | | | | | | unremarkable. | | | | | | Sectioning through the | | | | | | liverreveals del rio-red | | | | | | grossly unremarkable | | | | | | parenchyma. Sectioning | | | | | | through theattached fat | | | | | | reveals a 2 (SI) x 2 | | | | | | (ML) x 1 (AP) cm, firm | | | | | | area withtan-yellow, | | | | | | focally hemorrhagic soft | | | | | | tissue. Further | | | | | | sectioning throughthe | | | | | | firm focus reveals a 1 x | | | | | | 0.7 x 0.6 cm, cystic | | | | | | area which exudes | | | | | | thickclear red fluid. | | | | | | There are multiple | | | | | | metallic clips within | | | | | | this area. Firmfocus | | | | | | grossly consistent with | | | | | | scarred defect from a | | | | | | previous surgery. | | | | | | Sixpossible lymph | | | | | | nodes are identified | | | | | | within the attached | | | | | | fibroadipose | | | | | | tissueranging in size | | | | | | from 0.6 x 0.4 x 0.3 cm | | | | | | to 2.4 x 1.2 x 0.9 cm. | | | | | | F: Gallbladder | | | | | | bed resection: | | | | | | Received is a 2.1 x 2 | | | | | | x 1 cm, 2 gram,del rio-brown | | | | | | tissue with a | | | | | | cauterized margin that | | | | | | is inked black and | | | | | | thestitched margin is | | | | | | inked green. An | | | | | | orientating stitch chan | | | | | | the marginsegment 5 | | | | | | adjacent to portal vein. | | | | | | Wire Brush Operator | | | | | | sections are | | | | | | submittedfor frozen | | | | | | section diagnosis and | | | | | | resubmitted in toto. | | | | | | Cassette Index:A: | | | | | | Right costal margin | | | | | | peritoneal lesion:A1, | | | | | | frozen section residueB: | | | | | | Segment 7 biopsy:B1, | | | | | | frozen section residueC: | | | | | | Abdominal wall | | | | | | overlying segment 7:C1, | | | | | | frozen section residueD: | | | | | | Cystic duct:D1, | | | | | | frozen section residueE: | | | | | | Gallbladder bed | | | | | | resection:E1, frozen | | | | | | section residue E1E2, | | | | | | frozen section residue | | | | | | E2E3-4, outside sales account representative | | | | | | focusE5-6, liver to | | | | | | marginE7, liver to | | | | | | superficial radial | | | | | | fatE8, one bisected | | | | | | lymph nodeE9, five | | | | | | possible lymph nodesF: | | | | | | Gallbladder bed | | | | | | resection:F1, frozen | | | | | | section residueF2-3, | | | | | | remaining tissueAMJ/jose | | | | | | My [...] Diagnostician: | | | | | | Maxime Salinas | | | | | | MDPathologistElectronica | | | | | | lly Signed 05/08/2012 | | | | | | 2:37PM | | | | + + + + + + + + | Specimen | + + | | + + + + + + + | Performing | Address | City/State/Zipcode | Phone Number | | Organization | | | | + + + + + | [facility] | [address] | [place] [address] | | | PATHOLOGY | [address] | | | + + + + + RADIOLOGY (03/21/2012 12:00 AM PST) + + + | Narrative | Performed At | + + + | | | | | | + + + + + | Procedure Note | + + | Yamila Benitez - 06/12/2012 8:20 AM PDT | + + documented in this encounter Visit Diagnoses + + | Diagnosis | + + | Cholangiocarcinoma (HCC) - Primary Malignant neoplasm of intrahepatic bile ducts | + + | Gallbladder cancer (HCC) Malignant neoplasm of gallbladder | + + | Post-operative pain Other acute postoperative pain | + + documented in this encounter Administered Medications + +---------+ + +--------+------+ | Medication Order | MAR | Action | Dose | Rate | Site | | | Action | Date | | | | + +---------+ + +--------+------+ | acetaminophen (aka OFIRMEV) IV | New Bag | 04/29/19 | 1,000 mg | mL/hr | | | 1,000 mg 1,000 mg, intravenous, | | 13 8:52 | | | | | EVERY 6 HOURS NEEDED, Starting | | PM PDT | | | | | 04/28/12 at 2029, Until Sat | | | | | | | 04/29/12 at 0736, mild pain, fever | | | | | | + +---------+ + +--------+------+ +---+---+ | | | +---+---+ + +---------+ + +--------+---+ | acetaminophen (aka OFIRMEV) IV | New Bag | 05/01/19 | 1,000 mg | mL/hr | | | 1,000 mg 1,000 mg, intravenous, | | 13 9:41 | | | | | EVERY 8 HOURS NEEDED, Starting | | PM PDT | | | | | 04/29/12 at 0745, Until Mon | | | | | | | 05/01/12 at 1549, mild pain, fever | | | | | | + +---------+ + +--------+---+ +---------+ + +--------+---+ | New Bag | 05/01/19 | 1,000 mg | mL/hr | | | | 13 10:54 | | | | | | AM PDT | | | | +---------+ + +--------+---+ | New Bag | 05/01/19 | 1,000 mg | mL/hr | | | | 13 12:29 | | | | | | AM PDT | | | | +---------+ + +--------+---+ +---+---+ | | | +---+---+ + +-------+ +--------+---+---+ | acetaminophen (aka TYLENOL) | Given | 05/05/19 | 650 mg | | | | oral suspension 650 mg 650 mg, | | 13 10:12 | | | | | oral, EVERY 6 HOURS, First dose | | AM PDT | | | | | on 05/01/12 at 1600, Until | | | | | | | Discontinued | | | | | | + +-------+ +--------+---+---+ +-------+ +--------+---+---+ | Given | 05/05/19 | 650 mg | | | | | 13 4:07 | | | | | | AM PDT | | | | +-------+ +--------+---+---+ | Given | 05/04/19 | 650 mg | | | | | 13 10:07 | | | | | | PM PDT | | | | +-------+ +--------+---+---+ +---+---+ | | | +---+---+ + + + +---+ +---+ | bupivacaine 0.05 | Rate/Dos | 05/01/19 | | 13 mL/hr | | | %-HYDROmorphone 20 mcg/mL | e Change | 13 10:18 | | | | | epidural infusion epidural, | | PM PDT | | | | | CONTINUOUS, Starting Tue04/28/12 | | | | | | | at 1045, Until Tue05/01/12 at | | | | | | | 1420 | | | | | | + + + +---+ +---+ + + +---+---------+---+ | New Bag | 05/01/19 | | mL/hr | | | | 13 5:17 | | | | | | AM PDT | | | | + + +---+---------+---+ | Bolus from Same Bag | 04/30/19 | | 5 mL/hr | | | | 13 7:28 | | | | | | AM PDT | | | | + + +---+---------+---+ +---+---+ | | | +---+---+ + +---------+ + + +---+ | dextrose 5%-NaCl 0.45%-KCl 20 | New Bag | 05/02/19 | 75 mL/hr | 75 mL/hr | | | mEq/L IV infusion 75 mL/hr, | | 13 1:53 | | | | | intravenous, CONTINUOUS, Starting | | AM PDT | | | | | Shyann 04/30/12 at 0830, Until Mon | | | | | | | 05/01/12 at 1129 | | | | | | + +---------+ + + +---+ +---------+ + + +---+ | New Bag | 05/01/19 | 75 mL/hr | 75 mL/hr | | | | 13 9:06 | | | | | | AM PDT | | | | +---------+ + + +---+ +---+---+ | | | +---+---+ + +-------+ +-------+---+---+ | enoxaparin (aka LOVENOX) | Given | 05/04/19 | 40 mg | | | | injection 40 mg 40 mg, | | 13 9:03 | | | | | subcutaneous, EVERY EVENING, | | PM PDT | | | | | First dose on 04/29/12 at | | | | | | | 2100, Until Discontinued | | | | | | + +-------+ +-------+---+---+ +-------+ +-------+---+---+ | Given | 05/03/19 | 40 mg | | | | | 13 9:23 | | | | | | PM PDT | | | | +-------+ +-------+---+---+ | Given | 05/02/19 | 40 mg | | | | | 13 9:34 | | | | | | PM PDT | | | | +-------+ +-------+---+---+ +---+---+ | | | +---+---+ + +-------+ +-------+---+---+ | famotidine (aka PEPCID) tablet | Given | 05/05/19 | 20 mg | | | | 20 mg 20 mg, oral, TWICE DAILY, | | 13 8:52 | | | | | First dose on Tue05/01/12 at | | AM PDT | | | | | 2100, Until Discontinued | | | | | | + +-------+ +-------+---+---+ +-------+ +-------+---+---+ | Given | 05/04/19 | 20 mg | | | | | 13 9:03 | | | | | | PM PDT | | | | +-------+ +-------+---+---+ | Given | 05/04/19 | 20 mg | | | | | 13 8:31 | | | | | | AM PDT | | | | +-------+ +-------+---+---+ +---+---+ | | | +---+---+ + +---------+ +-------+-------+---+ | famotidine in NS (aka PEPCID) | New Bag | 05/02/19 | 20 mg | 200 | | | IV 20 mg 20 mg, intravenous, | | 13 8:30 | | mL/hr | | | EVERY 12 HOURS, First dose on Sat | | AM PDT | | | | | 04/29/12 at 0900, Until | | | | | | | Discontinued | | | | | | + +---------+ +-------+-------+---+ +---------+ +-------+-------+---+ | New Bag | 05/01/19 | 20 mg | 200 | | | | 13 10:03 | | mL/hr | | | | PM PDT | | | | +---------+ +-------+-------+---+ | New Bag | 05/01/19 | 20 mg | 200 | | | | 13 9:06 | | mL/hr | | | | AM PDT | | | | +---------+ +-------+-------+---+ +---+---+ | | | +---+---+ + +---------+ +--------+--------+---+ | fentaNYL citrate (PF) (aka | New Bag | 04/29/19 | 50 mcg | mL/hr | | | SUBLIMAZE) injection 50 mcg 50 | | 13 3:01 | | | | | mcg, intravenous, POSTPROCEDURE | | PM PDT | | | | | PRN, Starting Tue04/28/12 at | | | | | | | 1013, Until Tue04/28/12 at 1952, | | | | | | | moderate pain | | | | | | + +---------+ +--------+--------+---+ +---------+ +--------+--------+---+ | New Bag | 04/29/19 | 50 mcg | mL/hr | | | | 13 2:51 | | | | | | PM PDT | | | | +---------+ +--------+--------+---+ + +---+ | | | + +---+ | fentaNYL citrate (PF) (aka | | | SUBLIMAZE) injection 1 dose, | | | Starting Tue04/28/12 at 1446, | | | Until Tue04/28/12 at 1451 | | + +---+ | | | + +---+ + +-------+ +--------+---+---+ | gabapentin (aka NEURONTIN) | Given | 05/05/19 | 300 mg | | | | capsule 300 mg 300 mg, oral, | | 13 8:52 | | | | | THREE TIMES DAILY, First dose on | | AM PDT | | | | | 05/03/12 at 1230, Until | | | | | | | Discontinued | | | | | | + +-------+ +--------+---+---+ +-------+ +--------+---+---+ | Given | 05/04/19 | 300 mg | | | | | 13 10:07 | | | | | | PM PDT | | | | +-------+ +--------+---+---+ | Given | 05/04/19 | 300 mg | | | | | 13 2:08 | | | | | | PM PDT | | | | +-------+ +--------+---+---+ +---+---+ | | | +---+---+ + +---------+ +--------+--------+---+ | HYDROmorphone (aka DILAUDID) | New Bag | 05/03/19 | 0.4 mg | mL/hr | | | injection 0.1-0.4 mg 0.1-0.4 mg, | | 13 8:31 | | | | | intravenous, EVERY 2 HOURS | | AM PDT | | | | | NEEDED, Starting 05/01/12 at | | | | | | | 1048, Until Adriana 05/04/12 at 1641, | | | | | | | severe pain | | | | | | + +---------+ +--------+--------+---+ +---------+ +--------+--------+---+ | New Bag | 05/02/19 | 0.4 mg | mL/hr | | | | 13 11:35 | | | | | | PM PDT | | | | +---------+ +--------+--------+---+ | New Bag | 05/02/19 | 0.4 mg | mL/hr | | | | 13 12:04 | | | | | | AM PDT | | | | +---------+ +--------+--------+---+ +---+---+ | | | +---+---+ + +---------+ +--------+--------+---+ | HYDROmorphone (aka DILAUDID) | New Bag | 04/29/19 | 0.5 mg | mL/hr | | | injection 0.2-0.5 mg 0.2-0.5 mg, | | 13 3:32 | | | | | intravenous, POSTPROCEDURE PRN, | | PM PDT | | | | | Starting 04/28/12 at 1013, | | | | | | | Until 04/28/12 at 1952, | | | | | | | moderate pain | | | | | | + +---------+ +--------+--------+---+ +---+---+ | | | +---+---+ + +---------+ +--------+--------+---+ | HYDROmorphone (aka DILAUDID) | New Bag | 04/30/19 | 0.3 mg | mL/hr | | | injection 0.2-1 mg 0.2-1 mg, | | 13 3:45 | | | | | intravenous, EVERY 2 HOURS | | PM PDT | | | | | NEEDED, Starting 04/28/12 at | | | | | | | 2332, Until 04/30/12 at 0705, | | | | | | | moderate pain | | | | | | + +---------+ +--------+--------+---+ +---------+ +--------+--------+---+ | New Bag | 04/30/19 | 0.2 mg | mL/hr | | | | 13 10:34 | | | | | | AM PDT | | | | +---------+ +--------+--------+---+ | New Bag | 04/30/19 | 0.4 mg | mL/hr | | | | 13 2:10 | | | | | | AM PDT | | | | +---------+ +--------+--------+---+ + +---+ | | | + +---+ | HYDROmorphone (aka DILAUDID) | | | injection 1 dose, Starting Fri | | | 04/28/12 at 1446, Until Fri | | | 04/28/12 at 1532 | | + +---+ | | | + +---+ + +-------+ +--------+---+---+ | ibuprofen (aka MOTRIN) tablet | Given | 05/04/19 | 400 mg | | | | 400 mg 400 mg, oral, EVERY 8 | | 13 2:59 | | | | | HOURS NEEDED, Starting Wed | | PM PDT | | | | | 05/03/12 at 1225, Until Adriana | | | | | | | 05/04/12 at 1641, moderate pain | | | | | | + +-------+ +--------+---+---+ +---+---+ | | | +---+---+ + +---------+ +--------+--------+---+ | lactated ringers IV bolus 500 | New Bag | 04/29/19 | 500 mL | mL/hr | | | mL 500 mL, intravenous, ONCE, 1 | | 13 8:47 | | | | | dose, 04/28/12 at 2100 | | PM PDT | | | | + +---------+ +--------+--------+---+ +---+---+ | | | +---+---+ + +---------+ +--------+--------+---+ | lactated ringers IV bolus 500 | New Bag | 04/29/19 | 500 mL | mL/hr | | | mL 500 mL, intravenous, ONCE, | | 13 9:50 | | | | | dose, 04/28/12 at 2215 | | PM PDT | | | | + +---------+ +--------+--------+---+ +---+---+ | | | +---+---+ + +---------+ +--------+--------+---+ | lactated ringers IV bolus 500 | New Bag | 04/29/19 | 500 mL | mL/hr | | | mL 500 mL, intravenous, ONCE, | | 13 11:37 | | | | | dose, 04/29/12 at 0015 | | PM PDT | | | | + +---------+ +--------+--------+---+ +---+---+ | | | +---+---+ + +---------+ +--------+--------+---+ | lactated ringers IV bolus 500 | New Bag | 04/30/19 | 500 mL | mL/hr | | | mL 500 mL, intravenous, ONCE, 1 | | 13 1:16 | | | | | dose, 04/29/12 at 0145 | | AM PDT | | | | + +---------+ +--------+--------+---+ +---+---+ | | | +---+---+ + + + +-------+-------+---+ | lactated ringers IV 100 mL/hr, | Rate/Dos | 04/30/19 | 125 | 125 | | | intravenous, CONTINUOUS, | e Change | 13 8:08 | mL/hr | mL/hr | | | Starting 04/28/12 at 1500, | | AM PDT | | | | | Until 04/29/12 at 0736 | | | | | | + + + +-------+-------+---+ +---------+ +-------+-------+---+ | New Bag | 04/30/19 | 100 | 100 | | | | 13 4:19 | mL/hr | mL/hr | | | | AM PDT | | | | +---------+ +-------+-------+---+ | New Bag | 04/29/19 | 100 | 100 | | | | 13 5:20 | mL/hr | mL/hr | | | | PM PDT | | | | +---------+ +-------+-------+---+ +---+---+ | | | +---+---+ + + + +-------+-------+---+ | lactated ringers IV 125 mL/hr, | Rate/Dos | 04/30/19 | 125 | 125 | | | intravenous, CONTINUOUS, | e Change | 13 8:08 | mL/hr | mL/hr | | | Starting 04/29/12 at 0745, | | AM PDT | | | | | Until 04/29/12 at 0850 | | | | | | + + + +-------+-------+---+ +---+---+ | | | +---+---+ + +---------+ +-------+-------+---+ | lactated ringers IV 150 mL/hr, | New Bag | 05/01/19 | 150 | 150 | | | intravenous, CONTINUOUS, | | 13 7:12 | mL/hr | mL/hr | | | Starting 04/29/12 at 0900, | | AM PDT | | | | | Until 04/30/12 at 0748 | | | | | | + +---------+ +-------+-------+---+ +---------+ +-------+-------+---+ | New Bag | 05/01/19 | 150 | 150 | | | | 13 12:36 | mL/hr | mL/hr | | | | AM PDT | | | | +---------+ +-------+-------+---+ | New Bag | 04/30/19 | 150 | 150 | | | | 13 6:40 | mL/hr | mL/hr | | | | PM PDT | | | | +---------+ +-------+-------+---+ +---+---+ | | | +---+---+ + + + +---------+---+---+ | lidocaine (aka LIDODERM) 5 | Applied | 05/05/19 | 1 patch | | | | %(700 mg/patch) patch 1 Patch 1 | Patch | 13 8:51 | | | | | patch, transdermal, EVERY 24 | | AM PDT | | | | | HOURS, First dose on Tue05/02/12 | | | | | | | at 0730, Until Discontinued | | | | | | + + + +---------+---+---+ + + +---------+---+---+ | Applied Patch | 05/04/19 | 1 patch | | | | | 13 8:30 | | | | | | AM PDT | | | | + + +---------+---+---+ | Applied Patch | 05/03/19 | 1 patch | | | | | 13 8:45 | | | | | | AM PDT | | | | + + +---------+---+---+ +---+---+ | | | +---+---+ + +-------+ +--------+---+---+ | magnesium oxide (aka MAG-OX) | Given | 05/03/19 | 200 mg | | | | tablet 200 mg 200 mg, oral, | | 13 5:17 | | | | | DAILY, First dose on Tue05/02/12 | | PM PDT | | | | | at 1515, Until Discontinued | | | | | | + +-------+ +--------+---+---+ +---+---+ | | | +---+---+ + +-------+ +--------+---+---+ | magnesium oxide (aka MAG-OX) | Given | 05/05/19 | 400 mg | | | | tablet 400 mg 400 mg, oral, | | 13 8:52 | | | | | DAILY, First dose on Tue05/03/12 | | AM PDT | | | | | at 0900, Until Discontinued | | | | | | + +-------+ +--------+---+---+ +-------+ +--------+---+---+ | Given | 05/04/19 | 400 mg | | | | | 13 10:31 | | | | | | AM PDT | | | | +-------+ +--------+---+---+ +---+---+ | | | +---+---+ + +---------+ +-----+--------+---+ | magnesium sulfate IV (premade) | New Bag | 05/01/19 | 1 g | mL/hr | | | 1 g 1 g, intravenous, ONCE, 1 | | 13 4:28 | | | | | dose, 04/30/12 at 0915 | | PM PDT | | | | + +---------+ +-----+--------+---+ +---+---+ | | | +---+---+ + +---------+ +-----+--------+---+ | magnesium sulfate IV 4 g 4 g, | New Bag | 04/29/19 | 4 g | mL/hr | | | intravenous, ONCE, 1 dose, Fri | | 13 9:55 | | | | | 04/28/12 at 2100 | | PM PDT | | | | + +---------+ +-----+--------+---+ +---+---+ | | | +---+---+ + +---------+ +--------+--------+---+ | metoprolol (aka LOPRESSOR) | New Bag | 04/29/19 | 2.5 mg | mL/hr | | | injection 2.5 mg 2.5 mg, | | 13 6:01 | | | | | intravenous, EVERY 5 MINUTES | | PM PDT | | | | | NEEDED, Starting 04/28/12 at | | | | | | | 1758, Until 04/28/12 at 1952, | | | | | | | heart rate, >120 | | | | | | + +---------+ +--------+--------+---+ + +---+ | | | + +---+ | metoprolol (aka LOPRESSOR) | | | injection 1 dose, Starting Fri | | | 04/28/12 at 1757, Until Fri | | | 04/28/12 at 1801 | | + +---+ | | | + +---+ + +-------+ +-------+---+---+ | oxyCODONE (immediate release) | Given | 05/05/19 | 20 mg | | | | (aka ROXICODONE) tablet 5-20 mg | | 13 10:13 | | | | | 5-20 mg, oral, EVERY 3 HOURS | | AM PDT | | | | | NEEDED, Starting 05/01/12 at | | | | | | | 0830, Until Adriana 05/04/12 at 1641, | | | | | | | severe pain | | | | | | + +-------+ +-------+---+---+ +-------+ +-------+---+---+ | Given | 05/05/19 | 15 mg | | | | | 13 7:08 | | | | | | AM PDT | | | | +-------+ +-------+---+---+ | Given | 05/05/19 | 15 mg | | | | | 13 4:07 | | | | | | AM PDT | | | | +-------+ +-------+---+---+ +---+---+ | | | +---+---+ + +-------+ +------+---+---+ | polyethylene glycol (aka | Given | 05/03/19 | 17 g | | | | MIRALAX) powder 17 g 17 g, oral, | | 13 8:45 | | | | | DAILY, First dose (after last | | AM PDT | | | | | modification) on Tue05/02/12 at | | | | | | | 0900, Until Discontinued | | | | | | + +-------+ +------+---+---+ +---+---+ | | | +---+---+ + +-------+ + +---+---+ | potassium & sodium phosphates | Given | 05/03/19 | 1 packet | | | | (aka NEUTRA-PHOS, PHOS-NAK) | | 13 9:23 | | | | | 280-160-250 mg packet 1 Packet 1 | | PM PDT | | | | | packet, oral, THREE TIMES DAILY, | | | | | | | 9 doses, First dose on Tue | | | | | | | 04/30/12 at 0900, Last dose on Tue | | | | | | | 05/02/12 at 2200 | | | | | | + +-------+ + +---+---+ +-------+ + +---+---+ | Given | 05/03/19 | 1 packet | | | | | 13 5:17 | | | | | | PM PDT | | | | +-------+ + +---+---+ | Given | 05/03/19 | 1 packet | | | | | 13 8:45 | | | | | | AM PDT | | | | +-------+ + +---+---+ +---+---+ | | | +---+---+ + +-------+ +--------+---+---+ | potassium chloride SR (aka | Given | 05/03/19 | 40 mEq | | | | K-DUR) tablet 40 mEq 40 mEq, | | 13 9:23 | | | | | oral, TWICE DAILY, 2 doses, First | | PM PDT | | | | | dose on Tue05/02/12 at 2100, | | | | | | | Last dose on Tue05/03/12 at 0900 | | | | | | + +-------+ +--------+---+---+ +---+---+ | | | +---+---+ + +-------+ +--------+---+---+ | potassium chloride SR (aka | Given | 05/04/19 | 40 mEq | | | | K-DUR) tablet 40 mEq 40 mEq, | | 13 9:03 | | | | | oral, TWICE DAILY, 2 doses, First | | PM PDT | | | | | dose on Tue05/03/12 at 0815, | | | | | | | Last dose on Tue05/03/12 at 2100 | | | | | | + +-------+ +--------+---+---+ +-------+ +--------+---+---+ | Given | 05/04/19 | 40 mEq | | | | | 13 10:31 | | | | | | AM PDT | | | | +-------+ +--------+---+---+ +---+---+ | | | +---+---+ + +---------+ +---------+--------+---+ | promethazine (aka PHENERGAN) | New Bag | 04/29/19 | 6.25 mg | mL/hr | | | injection 6.25-12.5 mg 6.25-12.5 | | 13 3:32 | | | | | mg, intravenous, POSTPROCEDURE | | PM PDT | | | | | PRN, 2 doses, Starting Fri | | | | | | | 04/28/12 at 1013, Until Fri | | | | | | | 04/28/12 at 1952, nausea/vomiting | | | | | | + +---------+ +---------+--------+---+ + +---+ | | | + +---+ | promethazine (aka PHENERGAN) | | | injection 1 dose, Starting Fri | | | 04/28/12 at 1530, Until Fri | | | 04/28/12 at 1532 | | + +---+ | | | + +---+ + +-------+ + +---+---+ | senna-docusate (aka SENOKOT S) | Given | 05/04/19 | 1 tablet | | | | 8.6-50 mg 1 Tab 1 tablet, oral, | | 13 8:31 | | | | | TWICE DAILY, First dose on Sat | | AM PDT | | | | | 04/29/12 at 0900, Until | | | | | | | Discontinued | | | | | | + +-------+ + +---+---+ +-------+ + +---+---+ | Given | 05/03/19 | 1 tablet | | | | | 13 9:23 | | | | | | PM PDT | | | | +-------+ + +---+---+ | Given | 05/03/19 | 1 tablet | | | | | 13 10:08 | | | | | | AM PDT | | | | +-------+ + +---+---+ +---+---+ | | | +---+---+ + +---------+ +---------+--------+---+ | sodium phosphate IV 30 mmol 30 | New Bag | 05/01/19 | 30 mmol | mL/hr | | | mmol, intravenous, ONCE, 1 dose, | | 13 9:06 | | | | | 04/30/12 at 0830 | | AM PDT | | | | + +---------+ +---------+--------+---+ +---+---+ | | | +---+---+ documented in this encounter
--- OUTSIDE RECORDS SUMMARY | ~2019-06-06 | XMS | Encounter Summary ---
Demographics + + + | Address | [address] | | | [place] [address] | + + + | Home Phone [...] Author + + + | Author | [facility] | + + + | Organization | [facility] | + + + | Address [...] Team Providers + +------+ + | Care Regional Vice President Life Sales Name | Role | Phone | + +------+ + PCP | Unavailable | + +------+ + Encounter Details +--------+ + + + + | Date | Type | Department | Care Team | Description | +--------+ + + + + | 04/11/ | Abstract | Digestive Health | Tai Stanton, | | | 2012 | | Center [place] [address] [address] | [address] | | | | | HIEN [facility] | [facility] | | | | | for Health and | [place], [place] | | | | | [facility] [address] | [address] | | | | | [place], [place] | [phone] | | | | | [address] | | | | | | [phone] | | | +--------+ + + + [...]
--- OUTSIDE RECORDS SUMMARY | ~2019-06-06 | XMS | Encounter Summary ---
Demographics + + + | Address | [address] | | | [place] [address] | + + + | Home Phone [...] Team Providers + +------+ + | Care Conveyor Technician Name | Role | Phone | + +------+ + | Tomasa Wagner | PCP | | + +------+ + Encounter Details +--------+ + + + + | Date | Type | Department | Care Team | Description | +--------+ + + + + | 07/12/ | Abstract | Digestive Health | Tai Stanton, | | | 2013 | | Center at [facility] | [address] | | | | | HIEN [facility] | [facility] | | | | | for Health and | [place], [place] | | | | | [facility], [place] [address] | [address] | | | | | [place], [place] | [phone] | | | | | [address] | | | | | | [phone] | | | +--------+ + + + [...]
--- OUTSIDE RECORDS SUMMARY | ~2019-06-06 | XMS | Encounter Summary ---
Demographics + + + | Address | [address] | | | [place] [address] | + + + | Home Phone | | + + + | Preferred Language | Unknown | + + + | Marital Status | Single | + + + | Taoism Affiliation | NON | + + + [...] Providers + +------+ + | Care Sales Floor Team Member Name | Role | Phone | + +------+ + | Tomasa Wagner | PCP | | + +------+ + Reason for Visit + + + | Reason | Comments | + + + | Medical Records | | | Release | | + + + Encounter Details +--------+ + + + + | Date | Type | Department | Care Team | Description | +--------+ + + + + | 06/28/ | Telephone | [facility] | Elva Gery, | Medical Records | | 2015 | | Clinics at | [address] | Release | | | | [facility] | [address] | | | | | for Health and | [place] [address] | | | | | Healing [address] | [phone] | | | | | [place], | | | | | | [place] [address] | | | | | | [phone] | | | +--------+ + + + [...]
--- OUTSIDE RECORDS SUMMARY | ~2019-06-06 | XMS | Encounter Summary ---
Demographics + + + | Address | [address] | | | [place] [address] | + + + | Home Phone [...] Team Providers + +------+ + | Care Director Of Manufacturing Name | Role | Phone | + [...] | 2015 | Encounter | [facility] | [address] | Movement What Is My | | | | [address] | [facility] | Next Step? | | | | [address] | [place], [place] | | | | | Alexis, [facility] floor | [address] | | | | | [place], [place] | [phone] | | | | | [address] | | | | | | [phone] | | | +--------+ + + + [...]
--- OUTSIDE RECORDS SUMMARY | ~2019-06-06 | XMS | Encounter Summary ---
Demographics + + + | Address | [address] | | | [place] [address] | + + + | Home Phone | | + + + | Preferred Language | Unknown | + + + | Marital Status | | + + + | Congregation Affiliation | Unknown | + + + | Race | Unknown | + + + | Ethnic Group | Unknown | + + + Author + + + | Author | [facility] | | | and [place] | + + + | Organization | [facility] | | | and [place] | + + + | Address | Unknown | + + + | Phone | Unavailable | + + + Support + + + + + | Name | Relationship | Address | Phone | + + + + + | Poncho Oquendo | ECON | [address] | | | | | [place] | | | | | [address] | | + + + + + | Marta Upton | ECON | [place] | | | | | [address] | | + + + + + Care Team Providers + +------+ + | Care Car Repair Supervisor Name | Role | Phone | [...] | +--------+ + + + + | 11/18/ | Telephone | [facility] | Reinaldo, | Other | | 2014 | | [facility] | Epifanio Soler MD [address] | | | | | [facility] [address] | [facility] | | | | | [address] [facility] | [place] [address] | | | | | [place] [address] | [phone] | | | | | [phone] | | | +--------+ + + + [...] [facility] | | | | | | [facility] [address] | | | | | | [phone] | | | | | | | | +--------+---------+ + + + documented as of this encounter Visit Diagnoses Not on filedocumented in this encounter"
--- OUTSIDE RECORDS SUMMARY | ~2019-06-06 | XMS | Encounter Summary ---
Demographics + + + | Address | [address] | | | [place] [address] | + + + | Home Phone [...] Author | [facility] | + + + | Organization | [facility] | + + + | Address | [...] Team Providers + +------+ + | Care Change Manager Name | Role | Phone | [...] 2012 | | Center at [facility] [address] | [address] | | | | | HIEN [facility] | [facility] | | | | | for Health and | [place], [place] | | | | | [facility], [place] [address] | [address] | | | | | [place], [place] | [phone] | | | | | [address] | | | | | | [phone] | | | +--------+ + + + [...]
--- OUTSIDE RECORDS SUMMARY | ~2019-06-06 | XMS | Encounter Summary ---
Demographics + + + | Address | [address] | | | [place] [address] | + + + | Home Phone | | + + + | Preferred Language | Unknown | + + + | Marital Status | Single | + + + | Yarsani Affiliation | NON | + + + [...] Team Providers + +------+ + | Care Rv Detailer Name | Role | Phone | + +------+ + | Prudencio Isaac MD | PCP | | + +------+ + Encounter Details +--------+ + + + + | Date | Type | Department | Care Team | Description | +--------+ + + + + | 04/21/ | Telephone | Digestive Health | Tai Stanton, | | | 2012 | | Center at [facility] [address] | [address] | | | | | HIEN [facility] | [facility] | | | | | for [facility] and | [place], [place] | | | | | [facility], [place] [address] | [address] | | | | | [place], [place] | [phone] | | | | | [address] | | | | | | [phone] | | | +--------+ + + + [...]
--- OUTSIDE RECORDS SUMMARY | ~2019-06-06 | XMS | Encounter Summary ---
Demographics + + + | Address | [address] | | | [place] [address] | + + + | Home Phone [...] + +------+ + | Care Product Safety Head Name | Role | Phone | + [...] | | 2012 | | Oncology at [facility] | [address] | Question | | | | [address] [facility] | [facility] [address] | | | | | Mailcode: CH7M | [place] [address] | | | | | [facility] | [phone] | | | | | and [place]ny, | | | | | | [place] [address] | | | | | | [place], [place] | | | | | | [address] | | | | | | [phone] | | | +--------+ + + + [...]
--- OUTSIDE RECORDS SUMMARY | ~2019-06-06 | XMS | Encounter Summary ---
Demographics + + + | Address | [address] | | | [place] [address] | + + + | Home Phone [...] Team Providers + +------+ + | Care Principal Electrical Engineer Name | Role | Phone [...] | | (HCC) | | | | [place] [facility] | | | | | | and Healing, | | | | | | [address] | | | | | | [place], [place] | | | | | | [address] | | | | | | [phone] | | | +--------+------+ + + + [...] [facility] | [address] | [place] [address] | | | SERVICES, CORE | PARK [...] by | | | | | | [place] | | | | | | [address], [facility] | | | | | | [address] | | | | | | [phone]. | | | | | | [facility], Lala Blum, | | | | [...] [facility] | [address] | [place], [place] | | | [facility] | | [address] | | + + + + + [...] [facility] | | | | | | [facility],[address] [place] [address] | | | | | | [place] [address] | | | | | | [phone]. | | | | | | augusta, [...] [facility] | [address] | [place], [place] | | | [facility] | | [address] | | + + + + + [...] | + + + + + | [facility] | [address] | [place] [address] | | | SERVICES, [facility] | [address] | | | + + + + + COMPLETE METABOLIC SET (NA,K,CL,CO2,BUN,CREAT,GLUC,CA,AST,ALT,BILI TOTAL,ALK PHOS,ALB,PROT TOTAL) (04/12/2012 2:04 PM PST) + +---------+ + + + | Component | Value | Ref Range | Performed | Pathologist | | | | | At | Signature | + +---------+ + + + | GLUCOSE, | 100 (H) | 60 - 99 mg/dL | [facility] | | | PLASMA | | | LABORATORY | | | (LAB) | | | SERVICES, | | | | | | [facility] | | | | | | [...] | | | LABORATORY | | | GAMBIAN | | | SERVICES, | | | [...] | + + + + + | [facility] | [address] | [place] [address] | | | [facility] | | | | | HEALTH + HEALING | | | | + + + + + documented in this encounter Visit Diagnoses + + | Diagnosis | + + | Gallbladder cancer (HCC) Malignant neoplasm of gallbladder | + + documented in this encounter"
--- OUTSIDE RECORDS SUMMARY | ~2019-06-06 | XMS | Encounter Summary ---
Demographics + + + | Address | [address] | | | [place] [address] | + + + | Home Phone [...] Author | [facility] | | | and [place] | + + + | Organization | [facility] | | | and [place] | + + + | Address | Unknown | + + + | Phone | Unavailable | + + + Support + + + + + | Name | Relationship | Address | Phone | + + + + + | Poncho Oquendo | ECON | [address] | | | | | [facility], [place] | | | | | [address] | | + + + + + | Marta Upton | ECON | [address], [place] | | | | | [address] | | + + + + + Care Team Providers + +------+ + | Care Splitting Machine Feeder Name | Role | Phone | + +------+ + PCP | Unavailable | + +------+ + Encounter Details +--------+ + + + + | Date | Type | Department | Care Team | Description | +--------+ + + + + | 07/15/ | Hospital | [facility] | | | | 2000 | Encounter | MED CTR GENERIC OP | | | | | | CONV DEPT [address] | | | | | | [place], | | | | | | [place] [address] | | | | | | [phone] | | | +--------+ + + + [...] | | | | | [place] [address] | | | | | | [phone] | | | | | | | | +--------+---------+ + + + documented as of this encounter Visit Diagnoses Not on filedocumented in this encounter"
--- OUTSIDE RECORDS SUMMARY | ~2019-06-06 | XMS | Encounter Summary ---
Demographics + + + | Address | [address] | | | [place] [address] | + + + | Home Phone [...] | [facility] | | | and [place] | + + + | Organization | [facility] | | | and [place] | + + + | Address | Unknown | + + + | Phone | Unavailable | + + + Support + + + + + | Name | Relationship | Address | Phone | + + + + + | Poncho Oquendo | ECON | [address] | | | | | [facility], [place] | | | | | [address] | | + + + + + | Marta Upton | ECON | [place] | | | | | [address] | | + + + + + Care Team Providers + +------+ + | Care Boarder Steam Name | Role | Phone | + [...] + + | 04/29/ | Telephone | [facility] | Pedro Green, | Follow-up | | 2019 | | UROLOGY [address] | DO [address] | | | | | [address] | [place] [address] | | | | | [place], [place] | [phone] | | | | | [address] | | | | | | [phone] | | | +--------+ + + + [...] [address] | | | | | | [place] [address] | | | | | | [phone] | | | | | | | | +--------+---------+ + + + documented as of this encounter Visit Diagnoses Not on filedocumented in this encounter"
--- OUTSIDE RECORDS SUMMARY | ~2019-06-06 | XMS | Encounter Summary ---
Demographics + + + | Address | [address] | | | [place] [address] | + + + | Home Phone [...] | Author | [facility] | | | and Eduardoana | + + + | Organization | [facility] | | | and Eduardoana | + + + | Address | Unknown | + + + | Phone | Unavailable | + + + Support + + + + + | Name | Relationship | Address | Phone | + + + + + | Poncho Oquendo | ECON | [address] | | | | | [place] | | | | | [address] | | + + + + + | Marta Upton | ECON | [place] | | | | | [address] | | + + + + + Care Team Providers + +------+ + | Care Director College Name | Role | Phone | + [...] (Primary Dx) | | | | [address] | [place] [address] | | | | | [place] [address] | [phone] | | | | | [phone] | | | +--------+ + + + [...] [address] | | | | | | [place] [address] | | | | | | [phone] | | | | | | | | +--------+---------+ + + + documented as of this encounter Visit Diagnoses + + | Diagnosis | + + | 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
--- OUTSIDE RECORDS SUMMARY | ~2019-06-06 | XMS | Encounter Summary ---
Demographics + + + | Address | [address] | | | [place] [address] | + + + | Home Phone [...] Author | [facility] | | | and Eduardoana | + + + | Organization | [facility] | | | and Eduardoana | + + + | Address | Unknown | + + + | Phone | Unavailable | + + + Support + + + + + | Name | Relationship | Address | Phone | + + + + + | Poncho Oquendo | ECON | [address] | | | | | [facility] [place] | | | | | [address] | | + + + + + | Marta Upton | ECON | [place] | | | | | [address] | | + + + + + Care Team Providers + +------+ + | Care Medical Information Specialist Name | Role | Phone | [...] + + | 11/29/ | Surgery | [facility] | Pedro Green, | CYSTOSCOPY URETERAL | | 2018 | | [facility] | DO [address] [facility] | STENT stent removal | | | | OPERATING RO[address] | [place] [address] | and replacement | | | | [address] | [phone] | | | | | [facility] [place] | | | | | | [address] | | | | | | [phone] | | | +--------+---------+ + + + [...] out of the urethra Date Last Reviewed: 02/15/201619997269-5173 [employer]. [address] [place] [address]. All righ ts reserved. This information is [...] on your doctor's advice. Talk to your hot sealing machine operator regarding the use of this medicine in children. Special care may be needed. What side effects may I notice from receiving this medicine? Side effects that you should report to your doctor or health healthcare manager as soon as p ossible: allergic reactions like skin rash, itching or hives, swelling of the face, lips, or tongue blue or purple color of the skin difficulty breathing fever less urine unusual bleeding, bruising unusual tired, weak vomiting yellowing of the eyes or skin Side effects that usually do not require medical attention (report to your doctor or health healthcare manager if they continue or are bothersome): dark [...] if you have any of these conditions: rpkumqm-8-hzrbiyjjc dehydrogenase (G6PD) deficiency kidney disease an unusual or allergic reaction to phenazopyridine, other medicines, foods, dyes, or preser vatives or trying to get breast-feeding What should I watch for while using this medicine? Tell your doctor or health healthcare manager if your symptoms do not improve or [...] sugar in your urine. Talk to [facility] health care provider. NOTE:This sheet is a summary. It may not cover all possible information. If you have questi ons about this medicine, talk to your doctor, pharmacist, or health care provider. Copyright 2019 [employer] Ciprofloxacin tablets Brand Name: Cipro What is [...] information carefully each time. Talk to your hot sealing machine operator regarding the use of this medicine in children. Special care may be needed. What side effects may I notice from receiving this medicine? Side effects that you should report to your doctor or health healthcare manager as soon as p ossible: allergic reactions [...] attention (report to your doctor or health healthcare manager if they continue or are bothersome): dry [...] watery. Check with your doctor or health healthcare manager if you get an attack of severe diarrhea, nausea and vomiting, or if you sweat a lot. The loss of too much body fluid can make it halie gerous for you to take this medicine. This medicine may affect blood sugar levels. If you have diabetes, check with your doctor o r health healthcare manager before you change your diet or the [...] [address] | | | | | | [place] [address] | | | | | | [phone] | | | | | | | [...] Cholangiocarcinoma | | | | | | ([facility]) | | + +--------+ + + + [...] | | | | | | longer, elgdom-krv-bmctm use of | | | | | [...]
--- OUTSIDE RECORDS SUMMARY | ~2019-06-06 | XMS | Encounter Summary ---
Demographics + + + | Address | [address] | | | [place] [address] | + + + | Home Phone [...] | Author | [facility] | | | and Eduardoana | + + + | Organization | [facility] | | | and Eduardoana | + + + | Address | Unknown | + + + | Phone | Unavailable | + + + Support + + + + + | Name | Relationship | Address | Phone | + + + + + | Poncho Oquendo | ECON | [address] | | | | | [place] | | | | | [address] | | + + + + + | Marta Upton | ECON | [place] | | | | | [address] | | + + + + + Care Team Providers + +------+ + | Care Neighborhood Planner Name | Role | Phone | + [...] | | Personal | Reinaldo, | [address] | | | | | 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, | [place], | | | | | 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 [address] | [place] [address] | | | | | neoplasm of | [address] | Phone: | | | | | other site | [place], | [phone] | | | | | in | [place] [address] | Fax: | | | | | gastrointest | Phone: | [phone] | | | | | inal tract | [phone] | | | | | | Procedures | Fax: | | | | | | CT Abdomen | [phone] | | | | | | Pelvis [...] | | | | (HCC) | [place] | [address] [place] | | | | | Procedures | [address] | [place] | | | | | [place] OFFICE | Phone: | [address] Phone: | | | | | OUTPATIENT | [phone] | [phone] | | | | | VISIT 25 | Fax: | Fax: | | | | | MINUTES | [phone] | [phone] | +--------+--------+ + + + + Encounter Details +--------+ + + + + | Date | Type | Department | Care Team | Description | +--------+ + + + + | 03/18/ | Hospital | [facility] | Reinaldo, | Personal history of | | 2015 | Encounter | [facility] | Epifanio Soler MD [address] | malignant neoplasm | | | | [facility]Y CLINIC [address] | [address] [place] | of other site in | | | | [address] | [place] [address] | gastrointestinal | | | | [place] [address] | [phone] | tract (Primary Dx); | | | | [phone] | | Obesity; Liver | | | [...] Aura Upton is a 53-year-old woman from [place], [place] who h as 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 Tai Stanton of the [facility] April 28, 2012. ACTIVE DIAGNOSES: 1. Presentation with biliary colic in March of 2012 status post cholecystectomy and live r biopsy by Dr. Brandon Garcia March 29, 2012, pathological specimen [id number], analyzed by Dr. Bowers of [facility] and was notable for a poorly-differentiated adenoca rcinoma of the gallbladder. Liver biopsy demonstrated mild portal inflammation. 2. On April 28, 2012, she successfully underwent an R0 resection by Dr. Tai Stanton at [facility], pathological specimen [id number] was notable for the absence of any residual carcinoma within the gallbladder bed. However, 2/8 regional ly mph nodes contained regionally metastatic disease. 3. Consultation by Dr. Elva Grey of the [facility] on May returned the recommendation for adjuvant chemoradiation therapy following [id number] as follows: Capecitabine at 750 mg/m sq [...] 2019 | Visit | | DO [address] | | | | | | [place] [address] | | | | | | [phone] | | | | | | | [...] [address] | [place] | [phone] | | [facility] | | [address] | | | - LABORATORY | | [...] [place] | | | | | | [address] | | | | + + + [...] [address] | [place] [address] | [phone] | + + + + + [place] [...] Dr, | | | | | | [place] [address] | | | | + + + [...] [address] | [place] [address] | [phone] | + + + + + CEA [...] [address] | [place] | [phone] | | [facility] | | [address] | | | - LABORATORY | | [...] + | [facility] | [address] | [place] | [phone] | | [facility] | | [address] | | | - LABORATORY | | [...] | mL/min/1.73m2 | [facility] | | | GUAMANIAN | RATE,ESTIMATED | | MEDICAL | | | | mL/min/1.81w4Eswc than | | CENTER - | | [...] [address] | [place] | [phone] | | [facility] | | [address] | | | - LABORATORY | | [...] [address] | [place] | [phone] | | [facility] | | [address] | | | - LABORATORY | | [...] + | [facility] | [address] | [place] | [phone] | | [facility] | | [address] | | | - LABORATORY | | | | + + + + + | [facility] | [address] | [place], [place] | | | [facility] | | [address], [facility] | | | - LABORATORY [...] | | | | | mg/dL | [facility] | | | | | | MEDICAL | | | | | | CENTER - | | | | | | LABORATORY | | + + + + + + | eGFR if not | >60Comment: GLOMERULAR | >=60 | [facility] | | | | FILTRATION | mL/min/1.73m2 | [facility] | | | GUAMANIAN | RATE,ESTIMATED | | MEDICAL | | | | mL/min/1.64t2Ammu than | | CENTER - | | [...] | | | | | mg/dL | [facility] | | | | | | MEDICAL | | | | | | CENTER - | | | | | | LABORATORY | | + + + + + + | Albumin | 3.8 | 3.2 - 5.0 g/dL | [facility] | | | | | | [facility] | | | | | | MEDICAL [...] + | [facility] | [address] | [place], [place] | [phone] | | [facility] | | [address] | | | - LABORATORY | | | | + + + + + | [facility] | [address] | [place] | | | [facility] | | [address] | | | - LABORATORY [...] + | [facility] | [address] | [place] | [phone] | | [facility] | | [address] | | | - LABORATORY | | | | + + + + + | [facility] | [address] | [place] | | | [facility] | | [address] | | | - LABORATORY [...] + | [facility] | [address] | [place] | [phone] | | [facility] | | [address] | | | - LABORATORY | | | | + + + + + | [facility] | [address] | [place], [place] | | | [facility] | | [address] | | | - [...] | | | | | | [place] [address] | | | | + + + [...] [address] | [place] [address] | [phone] | + + + + + documented [...]
--- OUTSIDE RECORDS SUMMARY | ~2019-06-06 | XMS | Encounter Summary ---
Demographics + + + | Address | [address] | | | [place] [address] | + + + | Home Phone [...] + + + | Author | [facility] | + + + | Organization | [facility] | + + + | [...] Team Providers + +------+ + | Care Outside Maintenance Worker Name | Role | Phone | + +------+ + | Tomasa Wagner | PCP | | + +------+ + Reason for Visit + + + | Reason | Comments | + + + | Refill Encounters | | + + + Encounter Details +--------+ + + + + | Date | Type | Department | Care Team | Description | +--------+ + + + + | 08/21/ | Telephone | Digestive Health | Tai Stanton, | Refill Encounters | | 2013 | | Center at [facility] [address] | MD [address] | | | | | [facility] | [facility] | | | | | and | [place], [place] | | | | | [facility] 2 | [address] | | | | | [place], [place] | [phone] | | | | | [address] | | | | | | [phone] | | | +--------+ + + + [...]
--- OUTSIDE RECORDS SUMMARY | ~2019-06-06 | XMS | Encounter Summary ---
Demographics + + + | Address | [address] | | | [place] [address] | + + + | Home Phone | | + + + | Preferred Language | Unknown | + + + | Marital Status | | + + + | Uatsdin Affiliation | Unknown | + + + | Race | Unknown | + + + | Ethnic Group | Unknown | + + + Author + + + | Author | [facility] | | | and Eduardoana | + + + | Organization | [facility] | | | and Eduardoana | + + + | Address | Unknown | + + + | Phone | Unavailable | + + + Support + + + + + | Name | Relationship | Address | Phone | + + + + + | Poncho Oquendo | ECON | [address] | | | | | [facility] [place] | | | | | [address] | | + + + + + | Marta Upton | ECON | [place] | | | | | [address] | | + + + + + Care Team Providers + +------+ + | Care Board Layer Name | Role | Phone | + +------+ + | No, Physician | PCP | Unavailable | + +------+ + Reason for Visit + + + | Reason | Comments | + + + | Care Coordination | | + + + Encounter Details +--------+ + + + + | Date | Type | Department | Care Team | Description | +--------+ + + + + | 05/20/ | Telephone | [facility] | Reinaldo, | Care Coordination | | 2020 | | MED [facility] | Epifanio Soler MD [address] | | | | | ONCOLOGY CLINIC [address] | [facility] | | | | | W [facility] | [place] [address] | | | | | [place] [address] | [phone] | | | | | [phone] | | | +--------+ + + + [...] | | | | | [place] [address] | | | | | | [phone] | | | | | | | | +--------+---------+ + + + documented as of this encounter Visit Diagnoses Not on filedocumented in this encounter"
--- OUTSIDE RECORDS SUMMARY | ~2019-06-06 | XMS | Encounter Summary ---
Demographics + + + | Address | [address] | | | [place] [address] | + + + | Home Phone | | + + + | Preferred Language | Unknown | + + + | Marital Status | Single | + + + | Restorationism Affiliation | NON | + + + [...] Team Providers + +------+ + | Care Alignment Technician Name | Role | Phone | [...] | | | | | | [address] | | | | | | | [facility] | | | | | | | for Health | | | | | | | and Healing, | | | | | | | [address] | | | | | | | [place], [place] | | | | | | | [address] | | | | | | | Phone: | | | | | | | [phone] | | | | | | | Fax: | | | | | | | [phone] | +--------+--------+ + + + + Encounter Details +--------+---------+ + + + | Date | Type | Department | Care Team | Description | +--------+---------+ + + + | 11/01/ | Office | Digestive Health | Tai Stanton, | Gallbladder | | 2012 | Visit | Center at [facility] [address] | MD [address] | carcinoma (HCC) | | | | [facility] | [address] | (Primary Dx) | | | | for Health and | [place], [place] | | | | | [facility] | [address] | | | | | [place], [place] | [phone] | | | | | [address] | | | | | | [phone] | | | +--------+---------+ + + + [...] Tai Stanton MD - 11/07/2012 10:47 AM PDTI saw and evaluated the patient. I agree with the findings and the plan of care as documented in the resident s note. Tai Stanton M.D. [employer] [facility] Professor and Vice-Mask Designer of Surgery The [facility] N[facility] Chair for Pancreatic Disease Research Pancreatic/ HepatoBiliary and Foregut Working Groups Office email: [email or web address] Smitha Ngo Md - 11/01/2012 2:59 PM [...] primary oncologist (plan for survellence imaging in [facility]) -- Return to surgery clinic as needed Dr. Stanton has seen and examined the patient and agrees with the above plan. 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
--- OUTSIDE RECORDS SUMMARY | ~2019-06-06 | XMS | Encounter Summary ---
Demographics + + + | Address | [address] | | | [place] [address] | + + + | Home Phone [...] | Author | [facility] | | | and Eduardoana | + + + | Organization | [facility] | | | and Eduardoana | + + + | Address | Unknown | + + + | Phone | Unavailable | + + + Support + + + + + | Name | Relationship | Address | Phone | + + + + + | Poncho Oquendo | ECON | [address] | | | | | [place] | | | | | [address] | | + + + + + | Marta Upton | ECON | [place] | | | | | [address] | | + + + + + Care Team Providers + +------+ + | Care Winch Driver Name | Role | Phone | [...] | | | | | Procedures | [address] | [place] | | | | | [place] OFFICE | Phone: | [address] Phone: | | | | | OUTPATIENT | [phone] | [phone] | | | | | VISIT 25 | Fax: | Fax: | | | | | MINUTES | [phone] | [phone] | +--------+--------+ + + + + Encounter Details +--------+ + + + + | Date | Type | Department | Care Team | Description | +--------+ + + + + | 05/21/ | Hospital | [facility] | Mathieu Langford | Gallbladder cancer, | | 2017 | Encounter | [facility] | MD [address]ifan[address] | carcinoma (HCC) | | | | ONCOLOGY CLINIC [address] | [address] | (Primary Dx) | | | | [address] | [place] [address] | | | | | [place] [address] | [phone] | | | | | [phone] | | | +--------+ + + + [...] erent from the original. Hem-Onc Progress Note [facility] Pt. Name/Age/: Aura Upton 55 y.o. 1960 Med. Record Number: [id number] Date of admission: 05/21/2016 Assessment and plan: [...] Electronically signed by: Mathieu Langford, 05/21/2016 9:08 [facility] TIME SPENT 20 MIN. > 50% AT BEDSIDE, WITH FAMILY/PATIENT IN CARE AND ORACLE BPM DEVELOPER ON UNIT AND CO ORDINATION OF CARE Portions of this chart may have been created with [employer] voice recognition software. Occasi onal wrong-word or [...] and 4 hour treatment. (Dr. Najera o nd). She is having concerns about an immune [...] BLVD | | | | | | [place] [address] | | | | | | [phone] | | | | | | | [...] [place] | | | | | | [address] | | | | + + + + + + + + | Specimen | + + | Blood specimen | | (specimen) | + + + + + + + | Performing | Address | City/State/Zipcode | Phone Number | | Organization | | | | + + + + + | [facility] | [address] | [place] [address] | [phone] | + + + + + Lactate [...] [address] | [place] | [phone] | | [facility] | | [address] | | | - LABORATORY | | [...] | 0.97 | 0.60 - 1.30 | [facility] | | | | | mg/dL | [facility] | | | | | | MEDICAL | | | | | | CENTER - | | | | | | LABORATORY | | + + + + + + | eGFR if not | 60Comment: GLOMERULAR | >=60 | [facility] | | | | FILTRATION | mL/min/1.73m2 | [facility] | | | COMORAN | RATE,ESTIMATED | | MEDICAL | | | | mL/min/1.03a6Ahbi than | | CENTER - | | [...] | [address] | [place] | [phone] | | [facility] | | [address] | | | - LABORATORY | | [...] [address] | [place] | [phone] | | [facility] | | [address] | | | - LABORATORY | | [...] [address] | [place] | [phone] | | [facility] | | [address] | | | - LABORATORY | | | | + + + + + documented in this encounter Visit Diagnoses + + | Diagnosis | + + | Gallbladder cancer, 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
--- OUTSIDE RECORDS SUMMARY | ~2019-06-06 | XMS | Encounter Summary ---
Demographics + + + | Address | [address] [address] | | | [place] [address] | + + + | Home Phone | | + + + | Preferred Language | Unknown | + + + | Marital Status | | + + + | Roman Catholic Affiliation | Unknown | + + + | Race | Unknown | + + + | Ethnic Group | Unknown | + + + Author + + + | Author | [facility] | | | and Eduardoana | + + + | Organization | [facility] | | | and Eduardoana | + + + | Address | Unknown | + + + | Phone | Unavailable | + + + Support + + + + + | Name | Relationship | Address | Phone | + + + + + | Poncho Oquendo | ECON | [address] | | | | | [place] | | | | | [address] | | + + + + + | Marta Upton | ECON | [place] | | | | | [address] | | + + + + + Care Team Providers + +------+ + | Care Microsoft Bi Architect Name | Role | Phone | [...] 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, | [address]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 | MD [address] | [place], | | | | | (HCC) | [address] | [place] [address] | | | | | Procedures | [place], | Phone: | | | | | [place] | [place] [address] | [phone] | | | | | PEMBROLIZUMA | Phone: | Fax: | | | | | B, 1MG [place] | [phone] | [phone] | | | | | NORMAL | Fax: | | | | | | SALINE | [phone] | | | | | | SOLUTION | | | | | | | INFUS, 500 | | | | | | | ML [place] | | | | | | | NORMAL | | | | | | | SALINE | | | | | | | SOLUTION | | | | | | | INFUS, 250 | | | | | | | ML [place] | | | | | | | STERILE | | | | | | | WATER/SALINE | | | | | | | , 10 ML MO | | | | | | | CHEMOTHER, | | | | | | | IV PUSH,EA | | | | | | | ADD DRUG MO | | | | | | | CHEMOTHER, | | | | | | | IV INFUSION, | | | | | | | 1 HR MO | | | | | | | CHEMOTHER, | | | | | | | IV INFUSION, | | | | | | | EA HR MO | | | | | | | CHEMOTHER,NO | | | | | | | N-HORMONE | | | | | | | ANTI-NEOPL, | | | | | | | SUB-Q/IM MO | | | | | | | [...] + + | 02/02/ | Hospital | [facility] | Reinaldo, | Gallbladder cancer, | | 2017 | Encounter | MED CTR CHEMO | Epifanio Soler MD [address] | carcinoma (HCC) | | | | INFUSION [address] | [address] [place] | | | | | [place], | [place] [address] | | | | | [place] [address] | [phone] | | | | | [phone] | | | +--------+ + + + [...] [address] | | | | | | [place] [address] | | | | | | [phone] | | | | | | | [...] + + | Performed at: 01 - [facility] [address], | REFERENCE LAB | | [place], [place] [address] Street Contractor: Ad Larose MD, Phone: | [facility] | | [phone] | | + + + + + + + + | Performing | Address | City/State/Zipcode | Phone Number | | Organization | | | | + + + + + | REFERENCE LAB | [address] | [place], [place] | [phone] | | [facility] | [facility] | [address] | | + + + + + [...] [address] | [place] | [phone] | | [facility] | | [address] | | | - LABORATORY | | [...] [address] | [place] | [phone] | | [facility] | | [address] | | | - LABORATORY | | [...] 17 | 7 - 18 mg/dL | [facility] | | | | | | [facility] | | | | | | MEDICAL | | | | | | CENTER - | | | | | | LABORATORY | | + + + + + + | Creatinine | 1.47 (H) | 0.60 - 1.30 | [facility] | | | | | mg/dL | [...] mL/min/1.73m2 | [facility] | | | [place] | RATE,ESTIMATED | | MEDICAL | | | | mL/min/1.65n0Fwys than | | CENTER - | | [...] + | [address] | [address] | [place] | [phone] | | [facility] | | [address] | | | - LABORATORY | | [...] + | [address] | [address] | [place] | [phone] | | [facility] | | [address] | | | - LABORATORY | | [...] [address] | [place] | [phone] | | [facility] | | [address] | | | - LABORATORY | | [...]
--- OUTSIDE RECORDS SUMMARY | ~2019-06-06 | XMS | Encounter Summary ---
Demographics + + + | Address | [address] | | | [place] [address] | + + + | Home Phone | | + + + | Preferred Language | Unknown | + + + | Marital Status | Single | + + + | Jain Affiliation | NON | + + + [...] Team Providers + +------+ + | Care Practice Lead Name | Role | Phone | [...] & | Diagnoses | Degeest, | [facility] | | | | Gynecology | Pelvic mass | MD Miguel | [address] | | | | | Procedures | [address] | [address] | | | | | REQUEST TO | Dana Agosto | [place] | | | | | SURGERY | [address] | [place], 7th | | | | | BOTTLE LINE WORKER | [place], [place] | floor | | | | | [place] | [address] | [place], [place] | | | | | EXPLORATORY | Phone: | [phone] | | | | | OF ABDOMEN | [phone] | Phone: | | | | | [place] RESEC | Fax: | [phone] | | | | | OVAR | [phone] | Fax: | | | | | MALIG+JAKE+PE | | [phone] | | | | | LV NODES [...] & | Diagnoses | Non-Ohsu | [facility] | | | | Gynecology | Complex | Epic Dept | [address] | | | | | Cystic Mass, | | [address] | | | | | elevated | | [place] | | | | | [address] per | | Pavilion, 7th | | | | | appt notes | | floor | | | | | | | [place], [place] | | | | | | | [address] | | | | | | | Phone: | | | | | | | [phone] | | | | | | | Fax: | | | | | | | [phone] | +--------+--------+ + + + + Encounter Details +--------+---------+ + + + | Date | Type | Department | Care Team | Description | +--------+---------+ + + + | 05/28/ | Office | [facility] | Miguel Seymour, | Preoperative testing | | 2015 | Visit | [facility] | [address] | (Primary Dx); | | | | [address] | [address] | Pelvic mass | | | | [address] | [place], [place] | | | | | [place], 7th floor | [address] | | | | | [place], [place] | [phone] | | | | | [address] | | | | | | [phone] | | | +--------+---------+ + + + [...] might be diff erent from the original. FINANCE INTERN ONCOLOGY RETURN VISIT 05/28/2014 Referring provider: Valeriy [...] [facility] | [address] | [place] [address] | | | SAM ALONSO | NEAL [...] + + + | [facility] | [address] | [place] [address] | | | SERVICES, SAM | NEAL [...] | | | LABORATORY | | | CHINESE | | | SERVICES, | | | [...] + | [facility] | [address] | [place] [address] | | | GAVIN, SAM | NEAL [...]
--- OUTSIDE RECORDS SUMMARY | ~2019-06-06 | XMS | Encounter Summary ---
Demographics + + + | Address | [address] | | | [place] [address] | + + + | Home Phone [...] Team Providers + +------+ + | Care Interpretive Program Coordinator Name | Role | Phone [...] Mojica | treatment | | | | [facility] | [address] | | | | | for Health and | [place] [address] | | | | | Healing [address] | [phone] | | | | | [place], | | | | | | [place] [address] | | | | | | [phone] | | | +--------+ + + + [...]
--- OUTSIDE RECORDS SUMMARY | ~2019-06-06 | XMS | Encounter Summary ---
Demographics + + + | Address | [address] | | | [place] [address] | + + + | Home Phone [...] Team Providers + +------+ + | Care Emergency Department Rn Name | Role | Phone | + [...] | | | | | | [address] | | | | | | | [facility] | | | | | | | for Health | | | | | | | and Healing, | | | | | | | [address] | | | | | | | [place], [place] | | | | | | | [address] | | | | | | | Phone: | | | | | | | [phone] | | | | | | | Fax: | | | | | | | [phone] | +--------+--------+ + + + + Encounter Details +--------+---------+ + + + | Date | Type | Department | Care Team | Description | +--------+---------+ + + + | 05/31/ | Office | [facility] | Tai Stanton, | Encounter for wound | | 2012 | Visit | [facility] [address] | MD [address] | care (Primary Dx) | | | | [address] [facility] | [address] | | | | | for Health and | [place], [place] | | | | | [facility] | [address] | | | | | [place], [place] | [phone] | | | | | [address] | | | | | | [phone] | | | +--------+---------+ + + + [...] Tai Stanton MD - 06/04/2012 10:54 AM PDTI saw and evaluated the patient. I agree with the findings and the plan of care as documented in the resident s note. Tai Stanton M.D. [facility] ([facility]) Professor and Vice-Guest Services Associate of Surgery The [facility]riar Nava Chair for Pancreatic Disease Research Pancreatic/ HepatoBiliary and Foregut Working Groups Office email: [email or web address] Rukhsana Patel MD - 05/31/2012 2:07 PM PDT [facility] Department of Surgery [facility] Note [...] 51 y.o. female patient who [facility] for follow up for her wound [...] with plan for referral to Dr. Ellyn daneglo ear patient's home for adjuvant chemotherapy when appropriate. Review of Systems: A complete review of systems is as per the HPI above, but is otherwise negative. Past Medical History Diagnosis Date Chronic back pain greater than 3 months duration Past Surgical History Procedure Date Tubal ligation 2002 section 1998 Endoscopic sinus surgery 2008 History Substance Use Topics Smoking status: Former [...] Pathology: Original path: Materials Received: Referring Institution: [facility], [place] [address] Outside Accession Number: [id number] Sample Collection Date: 03/29/2012 Sublabeled H&E IHC [...] plan. Rukhsana Tesfaye MD Surgery, R1 Pager: [phone] documented in this e ncounter Plan of Treatment Not on filedocumented as of this encounter Visit Diagnoses + + | Diagnosis | + + | Encounter for wound care - Primary Encounter for other specified aftercare | + + documented in this encounter
--- OUTSIDE RECORDS SUMMARY | ~2019-06-06 | XMS | Encounter Summary ---
Demographics + + + | Address | [address] | | | [place] [address] | + + + | Home Phone | | + + + | Preferred Language | Unknown | + + + | Marital Status | | + + + | Protestant Affiliation | Unknown | + + + | Race | Unknown | + + + | Ethnic Group | Unknown | + + + Author + + + | Author | and [facility] | | | and Eduardoana | + + + | Organization | and [facility] | | | and Eduardoana | + + + | Address | Unknown | + + + | Phone | Unavailable | + + + Support + + + + + | Name | Relationship | Address | Phone | + + + + + | Poncho Oquendo | ECON | [address] | | | | | [place] | | | | | [address] | | + + + + + | Marta Upton | ECON | [place], [place] | | | | | [address] | | + + + + + Care Team Providers + +------+ + | Care Tanning Salon Attendant Name | Role | Phone | + +------+ + PCP | Unavailable | + +------+ + Encounter Details +--------+ + + + + | Date | Type | Department | Care Team | Description | +--------+ + + + + | 08/07/ | Hospital | [facility] | | | | 2012 - | Encounter | MED CTR CANCER | | | | | | CENTER [address] | | | | 08/13/ | | [place] | | | | 2012 | | [address] | | | | | | [phone] | | | +--------+ + + + [...] [address] | | | | | | [place] [address] | | | | | | [phone] | | | | | | | [...] + | [facility] | [address] | [place], [place] | [phone] | | [facility] | | [address] | | | - LABORATORY | | | | + + + + + | [facility] | [address] | [place] | | | [facility] | | [address], [facility] | | | - [...] | | (formerly Mahad) Advia | | [facility] | | | | Centaur immunoassay [...] Agee | | | | | | [address] CLIA: | | | | | | [id number] | | | | + + + + + + + + | Specimen | + + | | + + + + + + + | Performing | Address | City/State/Zipcode | Phone Number | | Organization | | | | + + + + + | [facility] | [address] | [place], [place] | [phone] | | [facility] | | [address] | | | - LABORATORY | | | | + + + + + | [facility] | [address] | [place] | | | [facility] | | [id number] [place] [address] | | | - LABORATORY | | [...] + + | Performing | Address | City/State/[facility] | Phone Number | | Organization | | | | + + + + + | [facility] | [address] | [place] | [phone] | | [facility] | | [address] | | | - LABORATORY | | | | + + + + + | [facility] | [address] | [place] | | | [facility] | | [address], [facility] | | | - [...] + | [facility] | [address] | [place] | [phone] | | [facility] | | [address] | | | - LABORATORY | | | | + + + + + | [facility] | [address] | [place], [place] | | | [facility] | | [address] | | | - LABORATORY [...] + | [facility] | [address] | [place], [place] | [phone] | | [facility] | | [address] | | | - LABORATORY | | | | + + + + + | [facility] | [address] | [place], [place] | | | [facility] | | [id number] [place] [address] | | | - LABORATORY | | [...] [address] | [place] | [phone] | | [facility] | | [address] | | | - LABORATORY | | | | + + + + + | [facility] | [address] | [place] | | | [facility] | | [address], [facility] | | | - [...] + | [facility] | [address] | [place], [place] | [phone] | | [facility] | | [address] | | | - LABORATORY | | | | + + + + + | [facility] | [address] | [place], [place] | | | [facility] | | [phone] [place] [address] | | | - LABORATORY | | [...] [address] | [place] | [phone] | | [facility] | | [address] | | | - LABORATORY | | | | + + + + + | [facility] | [address] | [place] | | | [facility] | | [address] | | | - LABORATORY [...] | >60Comment: For | >60 mL/min/A | [facility] | | | GFR | -Americans, | [...] + | [facility] | [address] | [place] | [phone] | | [facility] | | [address] | | | - LABORATORY | | | | + + + + + | [facility] | [address] | [place] | | | [facility] | | [address] | | | - LABORATORY [...] + | [facility] | [address] | [place], [place] | [phone] | | [facility] | | [address] | | | - LABORATORY | | | | + + + + + | [facility] | [address] | [place], [place] | | | [facility] | | [phone] [place] [address] | | | - LABORATORY | | [...] + | [facility] | [address] | [place], [place] | [phone] | | [facility] | | [address] | | | - LABORATORY | | | | + + + + + | [facility] | [address] | [place], [place] | | | [facility] | | [address], [facility] | | | - [...] [address] | [place] | [phone] | | [facility] | | [address] | | | - LABORATORY | | | | + + + + + | [facility] | [address] | [place] | | | [facility] | | [address] | | | - LABORATORY [...] ST. | [address] | [place] | [phone] | | [facility] | | [address] | | | - LABORATORY | | | | + + + + + | [facility] | [address] | [place], [place] | | | [facility] | | [address] [place] [address] | | | - LABORATORY | | | | + + + + + documented in this encounter Visit Diagnoses Not on filedocumented in this encounter"
--- OUTSIDE RECORDS SUMMARY | ~2019-06-06 | XMS | Encounter Summary ---
Demographics + + + | Address | [address] | | | [place] [address] | + + + | Home Phone [...] | Author | [facility] | | | and Eduardoana | + + + | Organization | [facility] | | | and Eduardoana | + + + | Address | Unknown | + + + | Phone | Unavailable | + + + Support + + + + + | Name | Relationship | Address | Phone | + + + + + | Poncho Oquendo | ECON | [address] | | | | | [place] | | | | | [address] | | + + + + + | Marta Upton | ECON | [place] | | | | | [address] | | + + + + + Care Team Providers + +------+ + | Care Survey Crew Chief Name | Role | Phone [...] 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, | [place]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 | MD [address] | [place], | | | | | (HCC) | [address] | [place] [address] | | | | | Procedures | [place], | Phone: | | | | | [place] | [place] [address] | [phone] | | | | | ONDANSETRON | Phone: | Fax: | | | | | HCL | [phone] | [phone] | | | | | INJECTION, 1 | Fax: | | | | | | MG [place] | [phone] | | | | | | DEXAMETHASON | | | | | | | E SODIUM | | | | | | | PHOS, 1 MG | | | | | | | NM | | | | | | | DIPHENHYDRAM | | | | | | | INE HCL | | | | | | | INJECTIO, 50 | | | | | | | MG NM | | | | | | | FOSAPREPITAN | | | | | | | T INJECTION, | | | | | | | 1 MG NM | | | | | | | EPOETIN | | | | | | | JJ, | | | | | | | NON-ESRD, | | | | | | | 1000 UNITS | | | | | | | NM CISPLATIN | | | | | | | 10 MG | | | | | | | INJECTION | | | | | | | NM | | | | | | | GEMCITABINE | | | | | | | HCL | | | | | | | INJECTION, | | | | | | | 200 MG NM | | | | | | | LORAZEPAM | | | | | | | INJECTION, 2 | | | | | | | MG NM | | | | | | | METHYLPREDNI | | | | | | | SOLONE | | | | | | | INJECTION, | | | | | | | 125 MG NM | | | | | | | NORMAL | | | | | | | SALINE | | | | | | | SOLUTION | | | | | | | INFUS, 500 | | | | | | | ML NM | | | | | | | NORMAL | | | | | | | SALINE | | | | | | | SOLUTION | | | | | | | INFUS, 250 | | | | | | | ML NM | | | | | | | STERILE | | | | | | | WATER/SALINE | | | | | | | , 10 ML NM | | | | | | | CHEMOTHER, | | | | | | | IV PUSH,EA | | | | | | | ADD DRUG NM | | | | | | | CHEMOTHER, | | | | | | | IV INFUSION, | | | | | | | 1 HR NM | | | | | | | CHEMOTHER, | | | | | | | IV INFUSION, | | | | | | | EA HR NM | | | | | | | CHEMOTHER,NO | | | | | | | N-HORMONE | | | | | | | ANTI-NEOPL, | | | | | | | SUB-Q/IM NM | | | | | | | [...] + + | 11/22/ | Hospital | [facility] | Vladimir Robles, | Gallbladder cancer, | | 2015 | Encounter | MED CTR CHEMO | MD [address] | carcinoma (HCC) | | | | INFUSION [address] [place], | (Primary Dx) | | | | [place], | [place] [address] | | | | | [place] [address] | [phone] | | | | | [phone] | | | +--------+ + + + [...] [address] | | | | | | [place] [address] | | | | | | [phone] | | | | | | | [...] | | | | | | [place] [address] | | | | + + + [...] [address] | [place] [address] | [phone] | + + + + + [place] [...] + | [facility] | [address] | [place] | [phone] | | [facility] | | [address] | | | - LABORATORY | | [...] [address] | [place] | [phone] | | [facility] | | [address] | | | - LABORATORY | | [...] mL/min/1.73m2 | [facility] | | | [facility] | RATE,ESTIMATED | | MEDICAL | | | | mL/min/1.05t1Tkme than | | CENTER - | | [...] | 8.7 | 8.3 - 10.5 | [facility] | | | | | mg/dL | [...] + | [facility] | [address] | [place] | [phone] | | [facility] | | [address] | | | - LABORATORY | | [...] [address] | [place] | [phone] | | [facility] | | [address] | | | - LABORATORY | | [...]
--- OUTSIDE RECORDS SUMMARY | ~2019-06-06 | XMS | Encounter Summary ---
Demographics + + + | Address | [address] | | | [place] [address] | + + + | Home Phone [...] Team Providers + +------+ + | Care Records Section Supervisor Name | Role | Phone | [...] (HCC) | [address] | Velma [place]field [facility] | | | | | Procedures | Rd | Hospital, | | | | | CT CHEST, | [place], [place] | 10th Floor | | | | | ABDOMEN & | [address] | [place], [place] | | | | | [address] | Phone: | [phone] | | | | | CONTRAST | [phone] | Phone: | | | | | [address], [address] | Fax: | [phone] | | | | | | [phone] | Fax: | | | | | | | [phone] | +--------+--------+ + + + + Reason [...] | | | | CT CHEST, | [place], [place] | 10th Floor | | | | | ABDOMEN & | | [place], [place] | | | | | [address] | Phone: | [address] | | | | | CONTRAST | [phone] | Phone: | | | | | [address], [address] | Fax: | [phone] | | | | | | [phone] | Fax: | | | | | | | [phone] | +--------+--------+ + + + + Encounter Details +--------+ + + + + | Date | Type | Department | Care Team | Description | +--------+ + + + + | 04/12/ | Hospital | Radiology/Imaging | | | | 2012 | Encounter | Lab at [facility] [address] | | | | | | [facility] | | | | | | for Health and | | | | | | Healing, [address], | | | | | | 3rd Floor | | | | | | [place], [place] | | | | | | [address] | | | | | | [phone] | | | +--------+ + + + [...]
--- OUTSIDE RECORDS SUMMARY | ~2019-06-06 | XMS | Encounter Summary ---
Demographics + + + | Address | [address] | | | [place] [address] | + + + | Home Phone | | + + + | Preferred Language | Unknown | + + + | Marital Status | | + + + | Baptism Affiliation | Unknown | + + + | Race | Unknown | + + + | Ethnic Group | Unknown | + + + Author + + + | Author | [facility] | | | and Eduardoana | + + + | Organization | [facility] | | | and Eduardoana | + + + | Address | Unknown | + + + | Phone | Unavailable | + + + Support + + + + + | Name | Relationship | Address | Phone | + + + + + | Poncho Oquendo | ECON | [address] | | | | | [place] | | | | | [address] | | + + + + + | Marta Upton | ECON | [place] | | | | | [address] | | + + + + + Care Team Providers + +------+ + | Care Call Worker Name | Role | Phone | [...] | +--------+ + + + + | 08/01/ | Telephone | [facility] | Reinaldo, | Other | | 2018 | | MED CTR MEDICAL | Epifanio Soler MD [address] | | | | | [facility] [address] | [facility] | | | | | [facility] | [place] [address] | | | | | [place] [address] | [phone] | | | | | [phone] | | | +--------+ + + + [...] [place] | | | | | | [facility] [address] | | | | | | [phone] | | | | | | | | +--------+---------+ + + + documented as of this encounter Visit Diagnoses Not on filedocumented in this encounter"
--- OUTSIDE RECORDS SUMMARY | ~2019-06-06 | XMS | Encounter Summary ---
Demographics + + + | Address | [address] | | | [place] [address] | + + + | Home Phone | | + + + | Preferred Language | Unknown | + + + | Marital Status | | + + + | Sabianist Affiliation | Unknown | + + + | Race | Unknown | + + + | Ethnic Group | Unknown | + + + Author + + + | Author | [facility] | | | and [place] | + + + | Organization | [facility] | | | and [place] | + + + | Address | Unknown | + + + | Phone | Unavailable | + + + Support + + + + + | Name | Relationship | Address | Phone | + + + + + | Poncho Oquendo | ECON | [address] | | | | | [place] | | | | | [address] | | + + + + + | Marta Upton | ECON | [place] | | | | | [address] | | + + + + + Care Team Providers + +------+ + | Care Supervisor Harvesting Name | Role | Phone | + [...] [address] [place] | | | | | [place], | [place] [address] | | | | | [place] [address] | [phone] | | | | | [phone] | | | +--------+ + + + [...] [place] | | | | | | [place] [address] | | | | | | [phone] | | | | | | | | +--------+---------+ + + + documented as of this encounter Visit Diagnoses + + | Diagnosis | + + | Gallbladder cancer, carcinoma (HCC) Malignant neoplasm of gallbladder | + + documented in this encounter"
--- OUTSIDE RECORDS SUMMARY | ~2019-06-06 | XMS | Encounter Summary ---
Demographics + + + | Address | [address] | | | [place] [address] | + + + | Home Phone [...] + | Author | [facility] | | | and Eduardoana | + + + | Organization | [facility] | | | and Eduardo[place] | + + + | Address | Unknown | + + + | Phone | Unavailable | + + + Support + + + + + | Name | Relationship | Address | Phone | + + + + + | Poncho Oquendo | ECON | [address] | | | | | [place] | | | | | [address] | | + + + + + | Marta Upton | ECON | [place] | | | | | [address] | | + + + + + Care Team Providers + +------+ + | Care Casting Sorter Name | Role | Phone | + [...] | | | | | mass | [place], VICE PRESIDENT SAFETY | | | | | | Procedures | [address] | | | | | | CT Chest | [place] | | | | | | Abdomen | [place], [place] | | | | | | Pelvis w | [address] | | | | | | Contrast CT | Phone: | | | | | | Abdomen | [phone] | | | | | | Pelvis w | Fax: | | | | | | Contrast | [phone] | | +--------+--------+ + + + + Encounter Details +--------+ + + + + | Date | Type | Department | Care Team | Description | +--------+ + + + + | 05/22/ | Hospital | [facility] | Latoya Holt | Ovarian mass | | 2015 | Encounter | MED CTR [address] | [place], VICE PRESIDENT SAFETY [address] | | | | | [place], | [address] [place] | | | | | [place] [address] | [place] [address] | | | | | [phone] | [phone] | | | | | | | [...] [address] | | | | | | [place] [address] | | | | | | [phone] | | | | | | | [...] | | | administration of 100 mL [id number] contrast. Multiplanar | | | reformatted images [...] intravenous administration of 100 mL | | [id number] contrast. Multiplanar reformatted images created.RADIATION DOSE: DLP [...]
--- OUTSIDE RECORDS SUMMARY | ~2019-06-06 | XMS | Encounter Summary ---
Demographics + + + | Address | [address] | | | [place] [address] | + + + | Home Phone [...] Team Providers + +------+ + | Care Verifying Machine Operator Name | Role | Phone | + +------+ + PCP | Unavailable | + +------+ + Encounter Details +--------+ + + + + | Date | Type | Department | Care Team | Description | +--------+ + + + + | 04/11/ | Abstract | [facility] | Tai Stanton, | | | 2012 | | [place] [address] | [address] | | | | | [facility] | [facility] | | | | | for Health and | [place], [place] | | | | | [facility], [address] | [address] | | | | | [place], [place] | [phone] | | | | | [address] | | | | | | [phone] | | | +--------+ + + + [...]
--- OUTSIDE RECORDS SUMMARY | ~2019-06-06 | XMS | Encounter Summary ---
Demographics + + + | Address | [address] | | | [place] [address] | + + + | Home Phone [...] | Author | [facility] | | | and Eduardoana | + + + | Organization | [facility] | | | and Eduardoana | + + + | Address | Unknown | + + + | Phone | Unavailable | + + + Support + + + + + | Name | Relationship | Address | Phone | + + + + + | Poncho Oquendo | ECON | [address] | | | | | [place] | | | | | [address] | | + + + + + | Marta Upton | ECON | [place] | | | | | [address] | | + + + + + [...] | | Personal | Reinaldo, | [address] [place] | | | | | 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, | [place], | | | | | 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 [address] | [place] [address] | | | | | neoplasm of | [address] | Phone: | | | | | other site | [place], | [phone] | | | | | in | [place] [address] | Fax: | | | | | gastrointest | Phone: | [phone] | | | | | inal tract | [phone] | | | | | | Procedures | Fax: | | | | | | CT Abdomen | [phone] | | | | | | Pelvis [...] | | Personal | Reinaldo, | [address] [place] | | | | | 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, | [place], | | | | | 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 [address] | [place] [address] | | | | | neoplasm of | [address] | Phone: | | | | | other site | [place], | [phone] | | | | | in | [place] [address] | Fax: | | | | | gastrointest | Phone: | [phone] | | | | | inal tract | [phone] | | | | | | Procedures | Fax: | | | | | | CT Abdomen | [phone] | | | | | | Pelvis w | | | | | | | Contrast | | | +--------+--------+ + + + + Encounter Details +--------+ + + + + | Date | Type | Department | Care Team | Description | +--------+ + + + + | 03/18/ | Hospital | [facility] | Reinaldo, | Personal history of | | 2015 | Encounter | MED CTR [address] | Epifanio Soler MD [address] | malignant neoplasm | | | | [place], | [address] [place] | of other site in | | | | [place] [address] | [place] [address] | gastrointestinal | | | | [phone] | [phone] | tract | | | | | [...] [address] | | | | | | [place] [address] | | | | | | [phone] | | | | | | | [...] + | MISCELLANEOUS LAB | | | [phone] | + +---------+ + + | MISCELANIOUS LAB | | | [phone] | + +---------+ + + documented in [...]
--- OUTSIDE RECORDS SUMMARY | ~2019-06-06 | XMS | Encounter Summary ---
Demographics + + + | Address | [address] | | | [place] [address] | + + + | Home Phone [...] Team Providers + +------+ + | Care Clerical Investigator Name | Role | Phone | + +------+ + | Tomasa Wagner | PCP | | + +------+ + Reason for Visit +---------+ + | Reason | Comments | +---------+ + | Post Op | discuss hormones, acne on backa nd face and increase hair on | | | face, When can she drive and be active again | +---------+ + Office Visit - E/M Services (Routine) +--------+--------+ + + + + | Status | Reason | Specialty | Diagnoses / | Referred By | Referred To | | | | | Procedures | Contact | Contact | +--------+--------+ + + + + | Closed | | Obstetrics & | Diagnoses | [facility] | [facility] | | | | Gynecology | Complex | Epic Dept | [facility] [address] | | | | | Cystic Mass, | | [address] | | | | | elevated | | [place] | | | | | CA[address] per | | Alexis, 7th | | | | | appt notes | | floor | | | | | | | [place], [place] | | | | | | | [address] | | | | | | | Phone: | | | | | | | [phone] | | | | | | | Fax: | | | | | | | [phone] | +--------+--------+ + + + + Encounter Details +--------+---------+ + + + | Date | Type | Department | Care Team | Description | +--------+---------+ + + + | 06/18/ | Office | [facility] | Miguel Seymour, | 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 | [facility] | [address] | (HCC) (Primary Dx) | | | | [address] | [facility] | | | | | [address] | [place], [place] | | | | | Alexis, white hospital floor | [address] | | | | | [place], [place] | [phone] | | | | | [address] | | | | | | [phone] | | | +--------+---------+ + + + [...] + + + | Blood Pressure | 117/65 | 06/18/2014 10:29 AM | | | | | PDT | | + + + + + | Pulse | 75 | 06/18/2014 10:29 AM | | | | | PDT | | + + + + + | Temperature | 37 C (98.6 F) | 06/18/2014 10:29 AM | | | | | PDT | | + + + + + | Respiratory Rate | - | - | | + + + + + | Oxygen Saturation | 98% | 06/18/2014 10:29 AM | | | | | PDT | | + + + + + | Inhaled Oxygen | - | - | | | Concentration | | | | + + + + + | Weight | 79.1 kg (174 lb 4.8 | 06/18/2014 10:29 AM | | | | oz) | PDT | | + + + + + | Height | 162.6 cm (5' 4") | 06/18/2014 10:29 AM | | | | | PDT | | + + + + + | Body Mass Index | 29.92 | 06/18/2014 10:29 AM | | | | | PDT | | + + + + + documented in this encounter Patient Instructions Patient Instructions Adina Zazueta RN - 06/18/2014 10:51 AM PDTPlease call [facility] scheduling to set up a post op follow up in 5-6 weeks for a pelvic exam. [phone], ok to coordinat e with an apt with or Romy (ok if it is longer than 6 weeks) if you like. documented in this encounter Progress Notes Pavithra Aviles MD - 06/18/2014 10:34 AM PDTFormatting of this note might be different fro m the original. 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 HPI: Want to discuss hormones after surgery due to concerns for hot flashes and acne Wants to know her activity levels and when she can go swimming Has not had a BM in last 4 days - plans to take suppository on way home. Small amount of abdominal pain, mostly in left lower quadrant (where most surgery was done) Left leg has recovered well and is not as swollen any more. She is walking regularly. Eating and drinking at baseline. Tolerating PO without nausea or vomiting. PAST MEDICAL HISTORY: Past Medical History Diagnosis Date Chronic back pain greater than 3 months duration Gallbladder carcinoma Cholangiocarcinoma Maintenance chemotherapy Diverticulosis of colon Hemorrhoids Depressive disorder Arthritis Adnexal mass PAST SURGICAL HISTORY: Past Surgical History Procedure Laterality Date Tubal ligation 2003 section 1998 Endoscopic sinus surgery 2009 deviated septum Laparoscopic cholecystectomy 2012 Dilation and curettage 2000 miscarriage Dilation and curettage 2002 miscarriage Laparoscopic knee surgery 09/06/13 Laparoscopic knee surgery 03/21/14 Liver resection 04/2012 OB HISTORY OB History Para Term AB SAB TAB Ectopic Multiple Living 3 1 1 2 2 1 # Outcome Date GA Lbr Wilberto/2nd Weight Sex Delivery Anes PTL Lv 3 SAB 2 SAB 1 Term MEDICATIONS: Current Medication List Name Sig STOOL SOFTENER ORAL Take 100 mg by mouth once daily as needed (constipation). DOCUSATE SODIUM 100 MG CAPSULE Take 1 capsule by mouth two times daily. ENOXAPARIN 40 MG/0.4 ML SUBCUTANEOUS SYRINGE Inject 0.4 mL under the skin (SUBC) once daily at noon. IBUPROFEN 600 MG TABLET Take 1 tablet by mouth every six hours as needed. PROBIOTIC ORAL Take 1 capsule by mouth once daily. LIDOCAINE 5 % (700 MG/PATCH) ADHESIVE PATCH Apply 1 patch to skin once daily. Apply patch t o most painful area; Patch may remain in place for up to 12 hours in any 24-hour period. MULTI VITAMIN ORAL Take 1 tablet by mouth once daily. ONDANSETRON 4 MG DISINTEGRATING TABLET Dissolve 1 tablet on tongue every twelve hours as n eeded. OXYCODONE 5 MG TABLET Take 1-4 tablets by mouth every three hours as needed for moderate or severe pain. ALLERGIES: Allergies Allergen Reactions Sulfacetamide Sodium Hives FAMILY HISTORY: Family History Problem Relation Diabetes Father Coronary Artery Disease Father s/p CABG Cancer Other niece thyroid SOCIAL HISTORY: History Social History Marital Status: Single Spouse Name: N/A Number of Children: N/A Years of Education: N/A Social History Main Topics Smoking status: Former Smoker -- 0.50 packs/day for 25 years Types: Cigarettes Quit date: 02/14/2006 Smokeless tobacco: Never Used Alcohol Use: 0.5 oz/week 1 Glasses of wine per week Comment: 2-3 glasses of wine per month. Drug Use: No Sexual Activity: Partners: Male Other Topics Concern Not on file Social History Narrative Pt has SO. Lives in [place]. 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 Likes to camp, entertain. REVIEW OF SYSTEMS: Constitutional: negative HEENT: negative Cardiovascular: negative Respiratory: negative Gastrointestinal: negative Genitourinary: negative Musculoskeletal: negative Integumentary: negative Neurologic: negative Psychiatric: negative PHYSICAL EXAM: Visit Vitals Item Reading BP 117/65 Pulse 75 Temp 37 C (98.6 F) Ht 1.626 m (5' 4") Wt 79.062 kg (174 lb 4.8 oz) SpO2 98% BMI 29.9 kg/(m^2) Body mass index is 29.9 kg/(m^2). Body surface area is 1.89 meters squared. General: no acute distress HEENT: normal Respiratory: non-labored breathing Abdomen: Not distended. No pain on palpation. No ascites. No palpable mass. No hepatospleno megaly. No hernia. Extremities: normal range of motion. No lower extremity edema. No venous stasis or varicose veins Skin: o rashes or lesions Lymph nodes: no cervical, supraclavicular, or inguinal adenopathy Neurological: normal gait, reflexes and sensitivity. Incision is clean, dry, and intact - well healed. Claire removed. Steristrips placed. STUDIES REVIEWED Final Pathologic Diagnosis: 05/21/2014 Endometrium, biopsies: - Polypoid endocervical transformation zone mucosa - Fragments of endometrial stroma - Nega tive for hyperplasia, dysplasia or malignancy CA-125 on 05/21/2014: 225 Pathology (06/06/14): A: Pelvic washings, sent to Cytology: - Please see corresponding [id number] B: Left ovary and fallopian tube, salpingo-oophorectomy: [...] poorly-differentiated carcinoma with neuroendocrine features present as approx . 0.3 cm focus within fibroconnective tissue D: Right ovary and fallopian tube, uterus, cervix, salpingo-oophorectomy and total hysterec dionna: - Metastatic poorly-differentiated carcinoma with neuroendocrine features, [...] poorly-differentiated carcinoma with neuroendocrine features focally present a t 0.1 cm aggregate within peritoneal fibroadiposeconnective tissue - Immunohistochemical staining positive for synaptophysin and chromogranin J: Right pelvic side wall, excision: - Peritoneal fibroadipose connective tissue with no diagnostic abnormality - Immunohistochemical staining negative for synaptophysin and chromogranin - Negative for malignancy Comment: The poorly-differentiated carcinoma with neuroendocrine features shows similar his tologic features to the previously excised lymph nodes from the gallbladder bed ([id number], s lides E3-4). Additionally, immunohistochemical staining on the left ovarian tumor shows the cells to be positive for CDX-2, consistent with gastrointestinal origin. ASSESSMENT: Aura Upton is a 53 y.o. here for her 2 week post-operative visit after explor atory laparotomy, total abdominal hysterectomy, bilateral salpingoopherectomy with resection of bilateral adnexal mass, omentectomy, left para-aortic lymph node dissection, left pelvic lymph node dissection for recurrent gastrointestinal poorly differentiated carcinoma with n euroendocrine features and metastases to both ovaries, fallopian tubes, pelvic peritoneum. PLAN: 1. Follow up for pelvic exam and surveillance in 4-6 weeks. 2. Counseled on HRT and counseled against it 3. Continue pain regimen of oxycodone 4. Counseled that she can start swimming 4-6 weeks post-operative and that she can drive on ce she stops her narcotic pain medication. Pavithra Aviles MD Obstetrics and Gynecology, PGY1 Pager #[phone] I saw and evaluated the patient. I [...]
--- OUTSIDE RECORDS SUMMARY | ~2019-06-06 | XMS | Encounter Summary ---
Demographics + + + | Address | [address] | | | [place] [address] | + + + | Home Phone [...] Team Providers + +------+ + | Care Painting Supervisor Name | Role | Phone | [...] + + | 06/28/ | Refill | [facility] | Zully Soto RN | Refill Request | | 2014 | | [facility] | [place], [place] | | | | | [address] | [address] | | | | | [address] | | | | | | [place], [address]th floor | | | | | | [place], [place] | | | | | | [address] | | | | | | [phone] | | | +--------+--------+ + + + [...]
--- OUTSIDE RECORDS SUMMARY | ~2019-06-06 | XMS | Encounter Summary ---
Demographics + + + | Address | [address] | | | [place] [address] | + + + | Home Phone [...] [facility] | | | and Eduardoana | + + + | Organization | [facility] | | | and Eduardoana | + + + | Address | Unknown | + + + | Phone | Unavailable | + + + Support + + + + + | Name | Relationship | Address | Phone | + + + + + | Poncho Oquendo | ECON | [address] | | | | | [place] [facility] [place] | | | | | [address] | | + + + + + | Marta Upton | ECON | [place] [place] | | | | | [address] | | + + + + + Care Team Providers + +------+ + | Care Corporate Communications Intern Name | Role | Phone | [...] + + | 02/12/ | Telephone | [facility] | Pedro Green, | Follow-up | | 2019 | | UROLOGY [address] | DO [address] | | | | | [address] | [place] [address] | | | | | [place], [place] | [phone] | | | | | [address] | | | | | | [phone] | | | +--------+ + + + [...] [address] | | | | | | [place] [address] | | | | | | [phone] | | | | | | | | +--------+---------+ + + + documented as of this encounter Visit Diagnoses Not on filedocumented in this encounter"
--- OUTSIDE RECORDS SUMMARY | ~2019-06-06 | XMS | Encounter Summary ---
Demographics + + + | Address | [address] | | | [place] [address] | + + + | Home Phone [...] Team Providers + +------+ + | Care Bilingual Manager Name | Role | Phone | [...] | | | Stay [address] | [place], [place] | testing; Pelvic | | | | [address] | [address] | mass; Other | | | | Mailcode: [id number] | [phone] | specified | | | | [facility] | | pre-operative | | | | [address] [place], [place] | | examination | | | | [address] | | | | | | [phone] | | | +--------+---------+ + + + [...] or walk. Surgery check-in location: Admitting - [facility] Surgery Check in Time: The Preoperative [...] it is after office hours, call the [facility] plastic extruding machine operator at [phone] and ask them to page him or h er. documented in this encounter Progress Notes Martha Duggan MA - 05/28/2014 10:57 AM PDT Venipuncture performed in clinic, blood sample obtained from Right antecubital site Hemoglo bin A1C POCT performed during clinic visit. Blood sample obtained from venipuncture performe d to obtain other lab tests. Rachael Luna MD - 05/28/2014 10:08 AM PDT [...] Date RATE 65 04/27/2012 ATRIALRATE 65 04/27/2012 AK 142 04/27/2012 QRS 86 04/27/2012 QT 398 [...] to this patient's care. RACHAEL NGUYEN MD EMERGENCY SERVICE RESTORERNETWORK ASSOCIATE DEPARTMENT OF MEDICINE DIVISION OF HOSPITAL MEDICINE PREOPERATIVE MEDICINE HEALTH TEACHER SENIOR COUNSEL COMMERCIAL [address] [place] [phone] documented in thi s encounter Plan of Treatment Not on filedocumented as of this encounter Procedures + +--------+ + + + | Procedure Name | Priori | Date/Time | Associated Diagnosis | Comments | | | ty | | | | + +--------+ + + + | AK COLLECTION VENOUS | Routin | 05/28/2014 | [...] [facility] | [address] | [place] [address] | | | SERVICES, | [address] [...] [facility] | [address] | [place] [address] | | | SERVICES, | [address] [...] [facility] | [address] | [place] [address] | | | SAM ALONSO | NEAL [...] | + + + + + | [facility] | [address] | [place] [address] | | | SAM ALONSO | NEAL [...] | + + + + + | [facility] | [address] | [place] [address] | | | SAM ALONSO | NEAL [...] | | | LABORATORY | | | [facility] [place] [facility] | | | SERVICES, | | | [...] | + + + + + | [facility] | [address] | [place] [address] | | | SERVICES, CORE | [address] [...] [facility] | [address] | [place], [place] | | | DG POINT OF CARE | [address] | [address] | | | TESTS | | | [...]
--- OUTSIDE RECORDS SUMMARY | ~2019-06-06 | XMS | Encounter Summary ---
Demographics + + + | Address | [address] | | | [place] [address] | + + + | Home Phone [...] Author | [facility] | | | and Eduardoana | + + + | Organization | [facility] | | | and Eduardo[place] | + + + | Address | Unknown | + + + | Phone | Unavailable | + + + Support + + + + + | Name | Relationship | Address | Phone | + + + + + | Poncho Oquendo | ECON | [address] | | | | | [place] | | | | | [address] | | + + + + + | Marta Upton | ECON | [address] [place] | | | | | [address] | | + + + + + Care Team Providers + +------+ + | Care Inter Fold Roll Cutter Name | Role | Phone | + +------+ + | Valeriy Carmona DO | PCP | | + +------+ + Encounter Details +--------+ + + + + | Date | Type | Department | Care Team | Description | +--------+ + + + + | 09/05/ | Orders Only | [facility] | Provider, | | | 2019 | | SYSTEM GENERIC OP | MD [address] | | | | | CONVERSION [address] | [address] | | | | | [address] [place], [place] | [place] [address] | | | | | [address] | | | | | | [phone] | | | +--------+ + + + [...] | | | | | | [place] [address] | | | | | | [phone] | | | | | | | | +--------+---------+ + + + documented as of this encounter Visit Diagnoses Not on filedocumented in this encounter"
--- OUTSIDE RECORDS SUMMARY | ~2019-06-06 | XMS | Encounter Summary ---
Demographics + + + | Address | [address] | | | [place] [address] | + + + | Home Phone [...] Team Providers + +------+ + | Care Motor Overhauler Name | Role | Phone | + [...] | | | | | cancer | [address] | [address] | | | | | (HCC) | [address] | [facility] | | | | | Procedures | [address] | [address] | | | | | CONSULT TO | [facility] [place] | [facility] [place] | | | | | HEMATOLOGY / | [address] | [address] Phone: | | | | | ONCOLOGY | Phone: | [phone] | | | | | PRACTICE | [phone] | Fax: | | | | | | Fax: | [phone] | | | | | | [phone] | | + +--------+ + + + [...] | cancer | [address] | [address] [facility] | | | | | (HCC) | Francesco Agosto | Surendra Carreon | | | | | Procedures | [address] | [address] [place], | | | | | CONSULT TO | [place], [place] | [place] | | | | | SURGERY - | [address] | [address] | | | | | GENERAL | Phone: | Phone: | | | | | | [phone] | [phone] | | | | | | Fax: | Fax: | | | | | | [phone] | [phone] | +--------+--------+ + + + + Encounter Details +--------+ + + + + | Date | Type | Department | Care Team | Description | +--------+ + + + + | 06/14/ | Tennis Director | [facility] | Miguel Seymour, | Gallbladder cancer | | 2015 | | [facility] | [address] | (HCC) (Primary Dx) | | | | [address] | [facility] | | | | | [address] | [place], [place] | | | | | Alexis, [facility] floor | [address] | | | | | [place], [place] | [phone] | | | | | [address] | | | | | | [phone] | | | +--------+ + + + [...]
--- OUTSIDE RECORDS SUMMARY | ~2019-06-06 | XMS | Encounter Summary ---
Demographics + + + | Address | [address] | | | [place] [address] | + + + | Home Phone [...] | [facility] | | | and Eduardoana | + + + | Organization | [facility] | | | and Eduardoana | + + + | Address | Unknown | + + + | Phone | Unavailable | + + + Support + + + + + | Name | Relationship | Address | Phone | + + + + + | Poncho Oquendo | ECON | [address] | | | | | [place] | | | | | [address] | | + + + + + | Marta Upton | ECON | [place] | | | | | [address] | | + + + + + Care Team Providers + +------+ + | Care Student Services Rep Name | Role | Phone | [...] [address] [place] | | | | | [place], | [place] [address] | | | | | [place] [address] | [phone] | | | | | [phone] | | | +--------+ + + + [...] [address] | | | | | | [place] [address] | | | | | | [phone] | | | | | | | [...] LIMITED RIGHT 03/05/2016 1:00 | | PMEXAM: [facility] TOMOS[facility] DIAGNOSTIC RIGHT dated 03/05/2016 12:50 PMHISTORY:EVALUATE [...] At | + + + | EXAM: [facility] TOMOSYN DIAGNOSTIC RIGHT dated 03/05/2016 12:50 PM [...]
--- OUTSIDE RECORDS SUMMARY | ~2019-06-06 | XMS | Encounter Summary ---
Demographics + + + | Address | [address] | | | [place] [address] | + + + | Home Phone [...] Team Providers + +------+ + | Care Architectural Manager Name | Role | Phone | [...] & | Diagnoses | Non-[facility] | [facility] [employer] Control Officer Onc | | | | Gynecology | Complex | Epic Dept | [address] | | | | | Cystic Mass, | | [address] | | | | | elevated | | [place] | | | | | [address] per | | Alexis, 7th | | | | | appt notes | | floor | | | | | | | [place], [place] | | | | | | | [address] | | | | | | | Phone: | | | | | | | [phone] | | | | | | | Fax: | | | | | | | [phone] | +--------+--------+ + + + + Encounter Details +--------+---------+ + + + | Date | Type | Department | Care Team | Description | +--------+---------+ + + + | 07/23/ | Office | [facility] | Miguel Seymour, | 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 | [facility] [place] | [address] | (HCC) (Primary Dx); | | | | [address] | [address] | Pelvic mass; | | | | [address] | [place], [place] | Post-operative pain | | | | Alexis, 7th floor | [address] | | | | | [place], [place] | [phone] | | | | | [address] | | | | | | [phone] | | | +--------+---------+ + + + [...] might be different fr om the original. FIELD SALES ENGINEER ONCOLOGY RETURN VISIT 07/23/2014 TREATMENT DIAGNOSIS: Stage [...] for pelvic recurrence (can be with regular FIELD SALES ENGINEER) 3. 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 Henderson, who agrees with the assessment and plan. Lotus Maher MD SOIL CONSERVATIONIST R4 I saw and evaluated the patient [...]
--- OUTSIDE RECORDS SUMMARY | ~2019-06-06 | XMS | Encounter Summary ---
Demographics + + + | Address | [address] | | | [place] [address] | + + + | Home Phone [...] Author | [facility] | | | and Eduardoana | + + + | Organization | [facility] | | | and Eduardo[place] | + + + | Address | Unknown | + + + | Phone | Unavailable | + + + Support + + + + + | Name | Relationship | Address | Phone | + + + + + | Poncho Oquendo | ECON | [address] | | | | | [place] | | | | | [address] | | + + + + + | Marta Upton | ECON | [place] | | | | | [address] | | + + + + + Care Team Providers + +------+ + | Care Ios Programmer Name | Role | Phone | + +------+ + | Valeriy Carmona DO | PCP | | + +------+ + Encounter Details +--------+ + + + + | Date | Type | Department | Care Team | Description | +--------+ + + + + | 07/01/ | Abstract | [facility] | Nelda Fuchs, | | | 2014 | | MED CTR PHARMACY | [facility] [address] | | | | | [address] [place] | [place], [place] | | | | | [place] [address] | [address] | | | | | [phone] | | | +--------+ + + + [...] as of this encounter Progress Nelda Pimentel [facility] - 07/01/2014 1:37 PM PDTFormatting of this note might be different fro m the original. IDT PATIENT MEDICATION/PROFILE REVIEW [facility] SERVICES [...] 12 kg/m2, Est CrCl = 110 ml/min (Schrader-Nash Equation) Allergies : Sulfa antibiotics Diagnosis: Stage [...] 2019 | Visit | | DO [address] | | | | | | [place] [address] | | | | | | [phone] | | | | | | | | +--------+---------+ + + + documented as of this encounter Visit Diagnoses Not on filedocumented in this encounter
--- OUTSIDE RECORDS SUMMARY | ~2019-06-06 | XMS | Encounter Summary ---
Demographics + + + | Address | [address] | | | [place] [address] | + + + | Home Phone | | + + + | Preferred Language | Unknown | + + + | Marital Status | Single | + + + | Tenriism Affiliation | NON | + + + [...] Team Providers + +------+ + | Care Environmental Engineering Intern Name | Role | Phone | [...] | Center at [facility] | [address] | | | | | [facility] | [facility] | | | | | for [facility] and | [place], [place] | | | | | [facility] | [address] | | | | | [place], [place] | [phone] | | | | | [address] | | | | | | [phone] | | | +--------+ + + + [...]
--- OUTSIDE RECORDS SUMMARY | ~2019-06-06 | XMS | Encounter Summary ---
Demographics + + + | Address | [address] | | | [place] [address] | + + + | Home Phone [...] + | Author | [facility] | | | and Eduardo[place] | + + + | Organization | [facility] | | | and Eduardo[place] | + + + | Address | Unknown | + + + | Phone | Unavailable | + + + Support + + + + + | Name | Relationship | Address | Phone | + + + + + | Poncho Oquendo | ECON | [address] | | | | | [place] | | | | | [address] | | + + + + + | Marta Upton | ECON | [place] | | | | | [address] | | + + + + + Care Team Providers + +------+ + | Care Anesthesia Tech Name | Role | Phone | [...] | | Malignant | Reinaldo, | [place] | | | | | 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, | [place], | | | | | extrahepatic | MD [address] | [place] [address] | | | | | bile ducts | [address] | Phone: | | | | | Procedures | [place], | [phone] | | | | | CT Abdomen | [place] [address] | Fax: | | | | | Pelvis w | Phone: | [phone] | | | | | Contrast | [phone] | | | | | | | Fax: | | | | | | | [phone] | | +--------+--------+ + + + + [...] | | Malignant | Reinaldo, | [place] | | | | | neoplasm of | Epifanio Soler, | [place], | | | | | extrahepatic | MD [address] | [place] [address] | | | | | bile ducts | [address] | Phone: | | | | | Procedures | [place], | [phone] | | | | | CT Abdomen | [place] [address] | Fax: | | | | | Pelvis w | Phone: | [phone] | | | | | Contrast | [phone] | | | | | | | Fax: | | | | | | | [phone] | | +--------+--------+ + + + + Encounter Details +--------+ + + + + | Date | Type | Department | Care Team | Description | +--------+ + + + + | 09/25/ | Hospital | 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
--- OUTSIDE RECORDS SUMMARY | ~2019-06-06 | XMS | Encounter Summary ---
Demographics + + + | Address | [address] | | | [place] [address] | + + + | Home Phone [...] | Author | [facility] | | | and Eduardoana | + + + | Organization | [facility] | | | and Eduardo[place] | + + + | Address | Unknown | + + + | Phone | Unavailable | + + + Support + + + + + | Name | Relationship | Address | Phone | + + + + + | Poncho Oquendo | ECON | [address] | | | | | [facility] [place] | | | | | [address] | | + + + + + | Marta Upton | ECON | [place] | | | | | [address] | | + + + + + Care Team Providers + +------+ + | Care Upper Caser Name | Role | Phone | + [...] | | | | is with | RIA[place]DA JOEL | [place] | | | | | renal and | OBED, | [address] | | | | | ureteral | [place] | [address] Phone: | | | | | calculous | [address] | [phone] | | | | | obstruction | Phone: | Fax: | | | | | | [phone] | [phone] | | | | | | Fax: | | | | | | | [phone] | | +--------+--------+ + + + + Encounter Details +--------+---------+ + + + | Date | Type | Department | Care Team | Description | +--------+---------+ + + + | 03/26/ | Office | [facility] | Pedro Green, | Gallbladder cancer, | | 2020 | Visit | UROLOGY [address] | DO [address] | carcinoma (HCC) | | | | [address] | [place] [address] | (Primary Dx); | | | | [place], [place] | [phone] | Obstruction of left | | | | [address] | | ureter | | | | [phone] | | | +--------+---------+ + + + [...] encounter Patient Instructions Patient Instructions Eleonora Saxena, Card Mounter - 03/26/2019 10:30 AM PSTPLAN : Proceed [...] MUST receive a cardiac clearance from your reordering clerk prior to surgery. Family members (taxicab driver) need to stay here during the procedure and can leave once patient i s discharged. Location: [facility] ([address] [place] [address] [place] [address]) Time: You will receive a call around [...] related questions or concerns, please contact our Card Mounter Christine parikh at PLAN : Proceed with [...] MUST receive a cardiac clearance from your reordering clerk prior to surgery. Family members (taxicab driver) need to stay here during the procedure and can leave once patient is discharged. Location: [facility] ([address] [place] [address] [place] [address]) Time: You will receive a call around [...] related questions or concerns, please contact our Card Mounter Christine parikh at documented in this encounter Progress Notes Pedro Green DO - 03/26/2019 10:30 AM PSTFormatting of this note might be different fr om the original. [facility] Primary Care Provider: No Physician on [...] this well. Her last exchange was at [facility] during a septic episode. Her last CT [...] and replacement; Surgeon: Pedro coker DO; Location: [facility] MAIN OR HYSTERECTOMY LIVER SURGERY OTHER SURGICAL HISTORY UNLISTED PROCEDURE ARTHROSCOPY OTHER SURGICAL HISTORY MEDIPORT INSERTION SINGLE OTHER SURGICAL HISTORY HARDWARE PRESENT OTHER SURGICAL HISTORY Left 07/05/2018 CYSTOSCOPY W/ URETERAL STENT PLACEMENT - Procedure: CYSTOSCOPY - STENT; Surgeon: Pedro Green DO; Location: [facility] MAIN OR; Service: Urology; Laterality: [...] | 2019 | Visit | | DO [address] [place] [address] | | | | | | [place] [address] | | | | | | [phone] | | | | | | | | +--------+---------+ + + + documented as of this encounter Visit Diagnoses + + | Diagnosis | + + | Gallbladder cancer, 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
--- OUTSIDE RECORDS SUMMARY | ~2019-06-06 | XMS | Encounter Summary ---
Demographics + + + | Address | [address] | | | [place] [address] | + + + | Home Phone | | + + + | Preferred Language | Unknown | + + + | Marital Status | | + + + | Hoahaoism Affiliation | Unknown | + + + | Race | Unknown | + + + | Ethnic Group | Unknown | + + + Author + + + | Author | [facility] | | | and Eduardoana | + + + | Organization | [facility] | | | and Eduardo[place] | + + + | Address | Unknown | + + + | Phone | Unavailable | + + + Support + + + + + | Name | Relationship | Address | Phone | + + + + + | Poncho Oquendo | ECON | [address] | | | | | [facility] [place] | | | | | [address] | | + + + + + | Marta Upton | ECON | [place], [place] | | | | | [address] | | + + + + + Care Team Providers + +------+ + | Care Embosser Operator Name | Role | Phone | [...] + + | 05/01/ | Telephone | [facility] | Reinaldo, | Other | | 2013 | | MED CTR MEDICAL | Epifanio Soler MD [address] | | | | | [facility] [address] | [address] | | | | | [address] [place] | [place] [address] | | | | | [place] [address] | [phone] | | | | | [phone] | | | +--------+ + + + [...] | | | | | [place] [address] | | | | | | [phone] | | | | | | | | +--------+---------+ + + + documented as of this encounter Visit Diagnoses Not on filedocumented in this encounter"
--- OUTSIDE RECORDS SUMMARY | ~2019-06-06 | XMS | Encounter Summary ---
Demographics + + + | Address | [address] | | | [place] [address] | + + + | Home Phone [...] + | Author | [facility] | | | and Eduardoana | + + + | Organization | [facility] | | | and Eduardo[place] | + + + | Address | Unknown | + + + | Phone | Unavailable | + + + Support + + + + + | Name | Relationship | Address | Phone | + + + + + | Poncho Oquendo | ECON | [address] | | | | | [place] | | | | | [address] | | + + + + + | Marta Upton | ECON | [place] | | | | | [address] | | + + + + + Care Team Providers + +------+ + | Care Middle School Combination Teacher Name | Role | Phone | [...] | | Carcinoma | Reinaldo, | [place] | | | | | of gall | Epifanio C, | [place], | | | | | bladder | MD [address] | [place] [address] | | | | | (HCC) | [address] | Phone: | | | | | Procedures | [place], | [phone] | | | | | CT Chest | [place] [address] | Fax: | | | | | Abdomen | Phone: | [phone] | | | | | Pelvis w | [phone] | | | | | | Contrast | Fax: | | | | | | | [phone] | | +--------+--------+ + + + + [...] (Primary Dx) | | | | [address] [place] | [place] [address] | | | | | [place] [address] | [phone] | | | | | [phone] | | | +--------+ + + + [...] [address] | | | | | | [place] [address] | | | | | | [phone] | | | | | | | [...] intravenous administration of 100 mL | | [id number] contrast. Oral contrast was administered. Multiplanar reformatted [...]
--- OUTSIDE RECORDS SUMMARY | ~2019-06-06 | XMS | Encounter Summary ---
Demographics + + + | Address | [address] | | | [place] [address] | + + + | Home Phone [...] Author | [facility] | | | and Eduardoana | + + + | Organization | [facility] | | | and Eduardoana | + + + | Address | Unknown | + + + | Phone | Unavailable | + + + Support + + + + + | Name | Relationship | Address | Phone | + + + + + | Poncho Oquendo | ECON | [address] | | | | | [place] | | | | | [address] | | + + + + + | Marta Upton | ECON | [place] | | | | | [address] | | + + + + + Care Team Providers + +------+ + | Care Monogram Technician Name | Role | Phone | [...] [place] | | | | | [address] [place] | [place] [address] | | | | | [place] [address] | [phone] | | | | | [phone] | | | +--------+ + + + [...] [address] | | | | | | [place] [address] | | | | | | [phone] | | | | | | | | +--------+---------+ + + + documented as of this encounter Visit Diagnoses + + | Diagnosis | + + | Gallbladder cancer, 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
--- OUTSIDE RECORDS SUMMARY | ~2019-06-06 | XMS | Encounter Summary ---
Demographics + + + | Address | [address] | | | [place] [address] | + + + | Home Phone [...] Author | [facility] | | | and Eduardoana | + + + | Organization | [facility] | | | and Eduardoana | + + + | Address | Unknown | + + + | Phone | Unavailable | + + + Support + + + + + | Name | Relationship | Address | Phone | + + + + + | Poncho Oquendo | ECON | [address] | | | | | [place] | | | | | [address] | | + + + + + | Marta Upton | ECON | [place] | | | | | [address] | | + + + + + Care Team Providers + +------+ + | Care Rn New Grad Name | Role | Phone | + [...] | | | | | [address] [facility] | [place] [address] | | | | | [place] [address] | [phone] | | | | | [phone] | | | +--------+ + + + [...] [address] | | | | | | [facility] [address] | | | | | | [phone] | | | | | | | | +--------+---------+ + + + documented as of this encounter Visit Diagnoses Not on filedocumented in this encounter"
--- OUTSIDE RECORDS SUMMARY | ~2019-06-06 | XMS | Encounter Summary ---
Demographics + + + | Address | [address] | | | [place] [address] | + + + | Home Phone | | + + + | Preferred Language | Unknown | + + + | Marital Status | Single | + + + | Baptism Affiliation | NON | + + + [...] Team Providers + +------+ + | Care Collections Representative Name | Role | Phone | [...] [place] | | | | | | [address] | | | | | | [phone] | | | +--------+ + + + [...] + | [facility] | [address] | [place] [address] | | | SERVICES, CORE | PARK [...] [facility] | [address] | [place] [address] | | | SERVICES, SAM | PARK [...] | + + + + + | [facility] | [address] | [place] [address] | | | SERVICES, CORE | [address] | | | + + + + + documented in this encounter Visit Diagnoses Not on filedocumented in this encounter"
--- OUTSIDE RECORDS SUMMARY | ~2019-06-06 | XMS | Encounter Summary ---
Demographics + + + | Address | [address] | | | [place] [address] | + + + | Home Phone [...] | [facility] | | | and Eduardoana | + + + | Organization | [facility] | | | and Eduardoana | + + + | Address | Unknown | + + + | Phone | Unavailable | + + + Support + + + + + | Name | Relationship | Address | Phone | + + + + + | Poncho Oquendo | ECON | [address] | | | | | [place] | | | | | [address] | | + + + + + | Marta Upton | ECON | [place] | | | | | [address] | | + + + + + Care Team Providers + +------+ + | Care Multimedia Artist Name | Role | Phone | [...] | | | [facility] [address] | [facility] | | | | | [address] [facility] | [place] [address] | | | | | [place] [address] | [phone] | | | | | [phone] | | | +--------+ + + + [...] [address] | | | | | | [facility] [address] | | | | | | [phone] | | | | | | | | +--------+---------+ + + + documented as of this encounter Visit Diagnoses Not on filedocumented in this encounter"
--- OUTSIDE RECORDS SUMMARY | ~2019-06-06 | XMS | Encounter Summary ---
Demographics + + + | Address | [address] | | | [place] [address] | + + + | Home Phone [...] + | Author | [facility] | | | and Eduardoana | + + + | Organization | [facility] | | | and Eduardoana | + + + | Address | Unknown | + + + | Phone | Unavailable | + + + Support + + + + + | Name | Relationship | Address | Phone | + + + + + | Poncho Oquendo | ECON | [address] | | | | | [place] | | | | | [address] | | + + + + + | Marta Upton | ECON | [place] | | | | | [address] | | + + + + + Care Team Providers + +------+ + | Care Clinical Account Manager Name | Role | Phone | [...] | | Personal | Reinaldo, | [place] | | | | | 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, | [place], | | | | | 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 [address] | [place] [address] | | | | | neoplasm of | [address] | Phone: | | | | | other site | [place], | [phone] | | | | | in | [place] [address] | Fax: | | | | | gastrointest | Phone: | [phone] | | | | | inal tract | [phone] | | | | | | Procedures | Fax: | | | | | | CT Abdomen | [phone] | | | | | | Pelvis [...] | | Personal | Reinaldo, | [place] | | | | | 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, | [place], | | | | | 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 [address] | [place] [address] | | | | | neoplasm of | [address] | Phone: | | | | | other site | [place], | [phone] | | | | | in | [place] [address] | Fax: | | | | | gastrointest | Phone: | [phone] | | | | | inal tract | [phone] | | | | | | Procedures | Fax: | | | | | | CT Abdomen | [phone] | | | | | | Pelvis w | | | | | | | Contrast | | | +--------+--------+ + + + + Encounter Details +--------+ + + + + | Date | Type | Department | Care Team | Description | +--------+ + + + + | 09/16/ | Hospital | [facility] | Reinaldo, | Personal history of | | 2014 | Encounter | MED CTR CT [address] | Epifanio Soler MD [address] | malignant neoplasm | | | | [place], | [address] [place] | of other site in | | | | [place] [address] | [place] [address] | gastrointestinal | | | | [phone] | [phone] | tract | | | | | [...] [place] | | | | | | [place] [address] | | | | | | [phone] | | | | | | | | +--------+---------+ + + + documented as of this encounter Procedures + +--------+ + + + | Procedure Name | Priori | Date/Time | Associated Diagnosis | Comments | | | ty | | | | + +--------+ + + + | CT ABDOMEN PELVIS W | Routin | 09/16/2014 | Personal history | Results for this | | CONTRAST | e | 12:18 PM | of 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procedure are [...] Note | + + | Hardy Wyatt Results In - 09/16/2014 4:02 PM PDT [...] iohexol (OMNIPAQUE 350) 350 | Given | 09/17/19 | 90 mLs | | | | mg/mL injection 90 mL 90 mL, | | 15 12:16 | | | | | Intravenous, ONCE PRN, Other, | | PM PDT | | | | | Starting 09/16/14 at 1205, For | | | | | | | 1 dose, Cat Scanner | | | | | | + +--------+ +--------+------+------+ +---+---+ | | | +---+---+ documented in this encounter"
--- OUTSIDE RECORDS SUMMARY | ~2019-06-06 | XMS | Encounter Summary ---
Demographics + + + | Address | [address] | | | [place] [address] | + + + | Home Phone | | + + + | Preferred Language | Unknown | + + + | Marital Status | Single | + + + | Jewish Affiliation | NON | + + + [...] | + + +---------+ + | Poncho Oquenod | ECON | Unknown | | + + +---------+ + | Elsy Upton | ECON | Unknown | | + + +---------+ + Care Team Providers + +------+ + | Care Molded Candles Wicker Name | Role | Phone | + [...] + + | 06/06/ | Hospital | [facility] [address] | Miguel Seymour, | | | 2015 - | Encounter | [address] | [address] [facility] | | | | | [place], [place] | [address] | | | 06/09/ | | [address] | [place], [place] | | | 2014 | | [phone] | [address] | | | | | | [phone] | | | | | | | [...] DISCHARGE SUMMARY Author: Roger Guadalupe MD PGY1 SYSTEM ADMINISTRATION MANAGER Attending Physician: Dr. Henderson Admission Date: 06/06/2014 [...] to Get Your Medications You need to picker / packer these prescriptions. We sent some of them to a specific pharmacy. Go t o these places to get your medications. [place] [facility] - enoxaparin 40 mg/0.4 mL Syrg [address] [facility] [address] Hours: 8AM-9PM Mon-Fri; 9-5:30PM Sat-Sun You may [...] [facility] clinic at [phone] during daytime hours. During evening or weekend hours, please call the [facility] paging shaker operator at [phone] and ask for the [facility] staff on-call. Reasons to call the [...] stable Discharging Physician: Roger Guadalupe MD PGY1 SYSTEM ADMINISTRATION MANAGER Service Pager: [phone] Attending Physician: Dr. Henderson I saw and [...] assessment and plan. Roger Guadalupe MD PGY1 SYSTEM ADMINISTRATION MANAGER Service Pager: [phone] I saw and evaluated the patient. I [...] assistance. Primary service notified. RAGHU DALY MD [facility] [facility], 4th Floor Mail Code: CH4P [place], [place] [address] Raghu Antony MD - 06/08/2014 [...] and recommendations with primary care team provider lumber straightener/oncology. RAGHU DALY MD BILLING INFORMATION [facility] DEPARTMENT: [id number] Place of Service:- Inpatient Date of Service: 06/08/2014 CSN: [id number] Suggested Modifier: None Suggested CPT: 66580 - Daily mgmt epidural/subarachnoid drug administration Prolonged [...] assessment and plan. Roger Guadalupe MD PGY1 SYSTEM ADMINISTRATION MANAGER Service Pager: [phone] I saw and evaluated the patient. I [...] separate note in EPIC). RAGHU DALY MD [facility] [address] [address] [facility], 4th Floor Mail Code: [address] [address] alika, Raghu Coello MD - [...] care team provider . RAGHU DALY MD [facility] [address] [facility], 4th Floor Mail Code: CH4P [place], [place] [id number] BILLING INFORMATION [facility] DEPARTMENT: [id number] Place of Service:- Inpatient Date of Service: 06/07/2014 CSN: [id number] Suggested Modifier: GC - Resident Involved Suggested CPT: 54965 - Daily mgmt epidural/subarachnoid drug administration Prolonged [...] note might be different from the [facility] GYNECOLOGY ONCOLOGY INPATIENT PROGRESS NOTE Hospital [...] 14 day cour se of lovenox. MD PNOCHO Millard MD documented i n this encounter [...] | Abdominal or | | | LAPAROSCOPY (LUMBER CHECKER | ve | 7:27 AM | pelvic [...] + +--------+ + + + | NON LUMBER CHECKER CYTOLOGY | Routin | 06/06/2014 | | [...] + | [facility] | [address] | [place] [address] | | | SERVICES, CORE | PARK [...] | + + + + + | [facility] | [address] | [place] [address] | | | SERVICES, CORE | NEAL [...] | | | LABORATORY | | | CZECH | | | SERVICES, | | | [...] the MDRD equation recommended by the | [facility] | | National Kidney Disease Education [...] + + | [facility] | [address] [facility] [address] | [place] [address] | | | SERVICES, CORE | PARK [...] GWEN GARCIA | [address] | [place] [address] | | | SAM ALONSO | PARK [...] + | [facility] | [address] | [place] [address] | | | SERVICES, CORE | PARK [...] | | | LABORATORY | | | CZECH | | | SERVICES, | | | [...] | + + + + + | [facility] | [address] | [place] [address] | | | SERVICES, CORE | [address] | | | + + + + + OPERATION RECORD (06/07/2014 8:30 AM PDT) + + | Transcriptions | + + | Miguel Seymour MD - 06/06/2014 12:48 PM PDT Date of Service: 06/06/2014 | | Attending Surgeon: Miguel Seymour MD Drop Hammer Operator Helper(s): | | Poncho Arriola MD. Anesthesia: General [...] 06/06/2014 11:52:24DT: 06/06/2014 12:48:01Job #: | | [id number] DEPARTMENT: [id number] LUMBER CHECKER ONC KPlace of Service: - | | IPDate of Service: 06/07/2014 : [id number] | | Modifier: NoneSuggested CPT: NoneSuggested Procedure [...] + | [facility] | [address] | [place] [address] | | | SERVICES, CORE | NEAL [...] + + | [facility] | [address] | [place] [address] | | | SERVICES, CORE | PARK [...] | + + + + + | [facility] | [address] | [place] [address] | | | GAVIN, SAM | NEAL [...] [facility] | [address] | [place] [address] | | | SERVICES, CORE | PARK [...] | | | LABORATORY | | | CZECH | | | SERVICES, | | | [...] | + + + + + | [facility] | [address] | [place] [address] | | | SERVICES, CORE | [address] | | | + + + + + NON LUMBER CHECKER CYTOLOGY (06/06/2014) + + + + + + | Component | Value | Ref Range | Performed | Pathologist | | | | | At | Signature | + + + + + + | NON-LUMBER CHECKER | SOURCE OF SPECIMEN:A | | [facility] [...] San | | | | | | CT(ASCP)Electrical Repairer | | | | | | Electronically [...] + + + + | [facility] | [address] | [place] [address] | | | PATHOLOGY | [address] [...] | | | | | | corresponding [id number] | | | | | | B: [...] bed | | | | | | ([id number], slides E3-4). | | | | | [...] necessary | | | | | | [facility] | | | | | | [...] | | | | | | s/pchemoXRT ([id number], | | | | | | [id number]); now with | | | | | [...] | | | | | | | Grass Farmer | | | | | | sections [...] identified. | | | | | | Grass Farmer | | | | | | sections [...] residueB3-6, | | | | | | career services representative sections | | | | | | of #1 external | | | | | | excrescenceB7-8, #2 | | | | | | external | | | | | | excrescenceB9-10, entire | | | | | | #3 external | | | | | | ejzqkhxktwqH14, | | | | | | career services representative sections | | | | | | of del rio-brown | | | | | | excrescences from inner | | | | | | cyst sjsyjwlsynX44-09, | | | | | | additional sections of | | | | | | agnooE21, career services representative | | | | | | [...] endomyometriumD5, | | | | | | career services representative sections | | | | | | of right ovaryD6-9, | | | | | | career services representative sections | | | | | | of external ovarian | | | | | | tjddcxC56-23, | | | | | | career services representative sections | | | | | [...] + + + + | [facility] | [address] | [place] [address] | | | PATHOLOGY | [address] [...]
--- OUTSIDE RECORDS SUMMARY | ~2019-06-06 | XMS | Encounter Summary ---
Demographics + + + | Address | [address] | | | [place] [address] | + + + | Home Phone [...] Author | [facility] | | | and [place] | + + + | Organization | [facility] | | | and [place] | + + + | Address | Unknown | + + + | Phone | Unavailable | + + + Support + + + + + | Name | Relationship | Address | Phone | + + + + + | Poncho Oquendo | ECON | [address] | | | | | [place] | | | | | [address] | | + + + + + | Marta Upton | ECON | [place] | | | | | [address] | | + + + + + Care Team Providers + +------+ + | Care Slot Editor Name | Role | Phone | + [...] WALL | | | | | [address] | [place] [address] | | | | | [place] [address] | [phone] | | | | | [phone] | | | +--------+ + + + [...] THOMASTAI | | | | | | [place] [address] | | | | | | [phone] | | | | | | | | +--------+---------+ + + + documented as of this encounter Visit Diagnoses + + | Diagnosis | + + | Gallbladder cancer, 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
--- OUTSIDE RECORDS SUMMARY | ~2019-06-06 | XMS | Encounter Summary ---
Demographics + + + | Address | [address] | | | [place] [address] | + + + | Home Phone [...] Team Providers + +------+ + | Care Gaming Manager Name | Role | Phone | [...] Francesco | | | | | at [facility] | [facility] | | | | | [address] | [place] [address] | | | | | [address] | | | | | | [place], 2nd floor | | | | | | [place], [place] | | | | | | [address] | | | | | | [phone] | | | +--------+ + + + [...] view image for the detailed interpretation from [employer] results. | CARDIOLOGY | + + + + + + + + | Performing | Address | City/State/Zipcode | Phone Number | | Organization | | | | + + + + + | [facility] | [address] | [place], [place] | | | CARDIOLOGY | [address] | [address] | | + + + + + documented in this encounter Visit Diagnoses Not on filedocumented in this encounter
--- OUTSIDE RECORDS SUMMARY | ~2019-06-06 | XMS | Encounter Summary ---
Demographics + + + | Address | [address] | | | [place] [address] | + + + | Home Phone [...] Providers + +------+ + | Care Rn Perinatal Name | Role | Phone | + +------+ + | Tomasa Wagner | PCP | | + +------+ + Encounter Details +--------+ + + + + | Date | Type | Department | Care Team | Description | +--------+ + + + + | 09/25/ | Telephone | Digestive Health | Tai Stanton, | | | 2012 | | Center at [facility] [address] | [address] | | | | | [address] [facility] | [facility] | | | | | for [facility] and | [place], [place] | | | | | [facility], [place] [address] | [address] | | | | | [place], [place] | [phone] | | | | | [address] | | | | | | [phone] | | | +--------+ + + + [...] incision | + + documented in this encounter"
--- OUTSIDE RECORDS SUMMARY | ~2019-06-06 | XMS | Encounter Summary ---
Demographics + + + | Address | [address] | | | [place] [address] | + + + | Home Phone [...] | Author | [facility] | | | and [place] | + + + | Organization | [facility] | | | and [place] | + + + | Address | Unknown | + + + | Phone | Unavailable | + + + Support + + + + + | Name | Relationship | Address | Phone | + + + + + | Poncho Oquendo | ECON | [address] | | | | | [place] | | | | | [address] | | + + + + + | Marta Upton | ECON | [place] | | | | | [address] | | + + + + + Care Team Providers + +------+ + | Care Crisis Manager Name | Role | Phone | [...] WALL | | | | | [address] | [place] [address] | | | | | [place] [address] | [phone] | | | | | [phone] | | | +--------+ + + + [...] [address] | | | | | | [place] [address] | | | | | | [phone] | | | | | | | | +--------+---------+ + + + documented as of this encounter Visit Diagnoses + + | Diagnosis | + + | 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
--- OUTSIDE RECORDS SUMMARY | ~2019-06-06 | XMS | Encounter Summary ---
Demographics + + + | Address | [address] | | | [place] [address] | + + + | Home Phone [...] Team Providers + +------+ + | Care Belt Cutter Name | Role | Phone | [...] | | | | | Procedures | [place], [place] | [place], [place] | | | | | CONSULT TO | [address] | [address] | | | | | ENT / FACIAL | Phone: | Phone: | | | | | PLASTIC | [phone] | [phone] | | | | | SURGERY | Fax: | Fax: | | | | | | [phone] | [phone] | +--------+--------+ + + + + Encounter [...] | | | Reconstructive | Velma Whitfield [place], | | | | | Services at [facility] | [place] [address] | | | | | [address] | [phone] | | | | | Mailcode: CH5E | | | | | | [facility] | | | | | | and Healing, | | | | | | Building 1, 5th | | | | | | Floor [place], [place] | | | | | | [address] | | | | | | [phone] | | | +--------+---------+ + + + [...] Surgery Dept. of Otolaryngology/Head and Neck Surgery [facility] [place] tel fax email [email or web address] documented in this encounte r Plan of Treatment Not on filedocumented as of this encounter Visit Diagnoses + + | Diagnosis | + + | Postop check - Primary Follow-up examination, following unspecified surgery | + + documented in this encounter"
--- OUTSIDE RECORDS SUMMARY | ~2019-06-06 | XMS | Encounter Summary ---
Demographics + + + | Address | [address] | | | [place] [address] | + + + | Home Phone [...] Providers + +------+ + | Care Motor Vehicle Inspector Name | Role | Phone | [...] | | 2014 | | Center at [facility] [address] | [address] | Returning Phone Call | | | | [address] [facility] | [facility] | | | | | [facility] and | [place], [place] | | | | | [place] [address] | [address] | | | | | [place], [place] | [phone] | | | | | [address] | | | | | | [phone] | | | +--------+ + + + [...]
--- OUTSIDE RECORDS SUMMARY | ~2019-06-06 | XMS | Encounter Summary ---
Demographics + + + | Address | [address] | | | [place] [address] | + + + | Home Phone [...] Author | [facility] | | | and [place] | + + + | Organization | [facility] | | | and [place] | + + + | Address | Unknown | + + + | Phone | Unavailable | + + + Support + + + + + | Name | Relationship | Address | Phone | + + + + + | Poncho Oquendo | ECON | [address] | | | | | [place] | | | | | [address] | | + + + + + | Marta Upton | ECON | [place] | | | | | [address] | | + + + + + Care Team Providers + +------+ + | Care Director Maternal Child Name | Role | Phone | + [...] | (Primary Dx) | | | | [place], | | | | | | [place] [address] | | | | | | [phone] | | | +--------+ + + + [...] [place] | | | | | | [place] [address] | | | | | | [phone] | | | | | | | | +--------+---------+ + + + documented as of this encounter Visit Diagnoses + + | Diagnosis | + + | Gallbladder cancer, 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
--- OUTSIDE RECORDS SUMMARY | ~2019-06-06 | XMS | Encounter Summary ---
Demographics + + + | Address | [address] | | | [place] [address] | + + + | Home Phone [...] Providers + +------+ + | Care Machine Set Up Operator Paper Goods Name | Role | Phone | + [...] | MD | | | | | [facility] 4th Floor [address] | | | | | | [address] | | | | | | Mailcode: CH4S | | | | | | [facility] | | | | | | and Healing, | | | | | | Building 1,4th Floor | | | | | | [place], [place] | | | | | | [address] | | | | | | [phone] | | | +--------+ + + + [...] Zhane Pang - 04/27/2012 1:41 PM PDTOR pharmacy aideJeanine ,(name) called the [facility] on 04/27/12 (date) at 1pm(time) and requested delivery of the following inform ation to this patient: Surgery arrival date/ time:04/28/12 6am (date/time) Where to arrive AM of surgery [facility] (location) Information delivered to patient as requested. documented in this encounter Plan of Treatment Not on filedocumented as of this encounter Visit Diagnoses Not on filedocumented in this encounter"
--- OUTSIDE RECORDS SUMMARY | ~2019-06-06 | XMS | Encounter Summary ---
Demographics + + + | Address | [address] | | | [place] [address] | + + + | Home Phone [...] Team Providers + +------+ + | Care Ivf Embryologist Name | Role | Phone | + [...] | | 2012 | | Center at [facility] [address] | [address] | Review ( abd ) | | | | [address] [facility] | [facility] | | | | | [facility] and | [place], [place] | | | | | [facility], [facility] 2 | [address] | | | | | [place], [place] | [phone] | | | | | [address] | | | | | | [phone] | | | +--------+ + + + [...]
--- OUTSIDE RECORDS SUMMARY | ~2019-06-06 | XMS | Encounter Summary ---
Demographics + + + | Address | [address] | | | [place] [address] | + + + | Home Phone | | + + + | Preferred Language | Unknown | + + + | Marital Status | | + + + | Anabaptist Affiliation | Unknown | + + + | Race | Unknown | + + + | Ethnic Group | Unknown | + + + Author + + + | Author | [facility] | | | and [place] | + + + | Organization | [facility] | | | and [place] | + + + | Address | Unknown | + + + | Phone | Unavailable | + + + Support + + + + + | Name | Relationship | Address | Phone | + + + + + | Poncho Oquendo | ECON | [address] | | | | | [place] | | | | | [address] | | + + + + + | Marta Upton | ECON | [place] | | | | | [address] | | + + + + + Care Team Providers + +------+ + | Care Finish Machine Tender Name | Role | Phone | [...] WALL | | | | | [address] | [place] [address] | | | | | [place] [address] | [phone] | | | | | [phone] | | | +--------+ + + + [...] THOMASTAI | | | | | | [place] [address] | | | | | | [phone] | | | | | | | | +--------+---------+ + + + documented as of this encounter Visit Diagnoses + + | Diagnosis | + + | Gallbladder cancer, 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
--- OUTSIDE RECORDS SUMMARY | ~2019-06-06 | XMS | Encounter Summary ---
Demographics + + + | Address | [address] | | | [place] [address] | + + + | Home Phone [...] | Author | [facility] | | | and [place] | + + + | Organization | [facility] | | | and [place] | + + + | Address | Unknown | + + + | Phone | Unavailable | + + + Support + + + + + | Name | Relationship | Address | Phone | + + + + + | Poncho Oquendo | ECON | [address] | | | | | [place] | | | | | [address] | | + + + + + | Marta Upton | ECON | [place] | | | | | [address] | | + + + + + Care Team Providers + +------+ + | Care Dog Beautician Name | Role | Phone | + [...] WALL | | | | | [address] | [place] [address] | | | | | [place] [address] | [phone] | | | | | [phone] | | | +--------+ + + + [...] THOMASTAI | | | | | | [place] [address] | | | | | | [phone] | | | | | | | | +--------+---------+ + + + documented as of this encounter Visit Diagnoses + + | Diagnosis | + + | Gallbladder cancer, 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
--- OUTSIDE RECORDS SUMMARY | ~2019-06-06 | XMS | Encounter Summary ---
Demographics + + + | Address | [address] | | | [place] [address] | + + + | Home Phone [...] Team Providers + +------+ + | Care Class A Lineman Name | Role | Phone | + [...] employer.) | | | | Services at [facility] | [place] [address] | | | | | [address] | [phone] | | | | | Mailcode: CH5E | | | | | | [facility] | | | | | | and Healing, | | | | | | Building 1, [address]th | | | | | | [place], [place] | | | | | | [address] | | | | | | [phone] | | | +--------+ + + + [...]
--- OUTSIDE RECORDS SUMMARY | ~2019-06-06 | XMS | Encounter Summary ---
Demographics + + + | Address | [address] | | | [place] [address] | + + + | Home Phone | | + + + | Preferred Language | Unknown | + + + | Marital Status | | + + + | Anabaptist Affiliation | Unknown | + + + | Race | Unknown | + + + | Ethnic Group | Unknown | + + + Author + + + | Author | and [facility] | | | and [place] | + + + | Organization | and [facility] | | | and [place] | + + + | Address | Unknown | + + + | Phone | Unavailable | + + + Support + + + + + | Name | Relationship | Address | Phone | + + + + + | Poncho Oquendo | ECON | [address] | | | | | [facility] [place] [place] | | | | | [address] | | + + + + + | Marta Upton | ECON | [place], [place] | | | | | [address] | | + + + + + Care Team Providers + +------+ + | Care Boxing Inspector Name | Role | Phone | [...] [address] | | | | | [address] [facility] | | | | | | [place], [place] | | | | | | [address] | | | | | | [phone] | | | +--------+ + + + [...] [address] | | | | | | [place] [address] | | | | | | [phone] | | | | | | | [...]
--- OUTSIDE RECORDS SUMMARY | ~2019-06-06 | XMS | Encounter Summary ---
Demographics + + + | Address | [address] | | | [place] [address] | + + + | Home Phone [...] Providers + +------+ + | Care Pocket Operator Name | Role | Phone | [...] Rd | | | | | | [place], [place] | | | | | | [address] | | | +--------+ + + + [...]
--- OUTSIDE RECORDS SUMMARY | ~2019-06-06 | XMS | Encounter Summary ---
Demographics + + + | Address | [address] | | | [place] [address] | + + + | Home Phone [...] + | Author | [facility] | | | and [place] | + + + | Organization | [facility] | | | and [place] | + + + | Address | Unknown | + + + | Phone | Unavailable | + + + Support + + + + + | Name | Relationship | Address | Phone | + + + + + | Poncho Oquendo | ECON | [address] | | | | | [place] | | | | | [address] | | + + + + + | Marta Upton | ECON | [place] | | | | | [address] | | + + + + + Care Team Providers + +------+ + | Care Supervisory Historian Name | Role | Phone | [...] | | | [facility] | [facility] | | | | | [facility] | [place] [address] | | | | | [place] [address] | [phone] | | | | | [phone] | | | +--------+ + + + [...] [address] | | | | | | [place] [address] | | | | | | [phone] | | | | | | | [...]
--- OUTSIDE RECORDS SUMMARY | ~2019-06-06 | XMS | Encounter Summary ---
Demographics + + + | Address | [address] | | | [place] [address] | + + + | Home Phone | | + + + | Preferred Language | Unknown | + + + | Marital Status | | + + + | Rastafari Affiliation | Unknown | + + + | Race | Unknown | + + + | Ethnic Group | Unknown | + + + Author + + + | Author | [facility] | | | and [place]ardo[place] | + + + | Organization | [facility] | | | and [place] | + + + | Address | Unknown | + + + | Phone | Unavailable | + + + Support + + + + + | Name | Relationship | Address | Phone | + + + + + | Poncho Oquendo | ECON | [address] | | | | | [place] | | | | | [address] | | + + + + + | Marta Upton | ECON | [address] [place] [place] | | | | | [address] | | + + + + + Care Team Providers + +------+ + | Care Spinning Doffer Name | Role | Phone | + [...] in | [address] | | | | | breast | [place] | [place], | | | | | Procedures | STREET | [place] | | | | | LUPE BREAST | [place], | [address] | | | | | BIOPSY RIGHT | [place] | Phone: | | | | | | [address] | [phone] | | | | | | Phone: | Fax: | | | | | | [phone] | [phone] | | | | | | Fax: | | | | | | | [phone] | | +--------+--------+ + + + + Encounter Details +--------+ + + + + | Date | Type | Department | Care Team | Description | +--------+ + + + + | 03/05/ | Hospital | [facility] | Reinaldo, | Mass of breast, | | 2017 | Encounter | MED CTR MAMMOGRAPHY | Epifanio Soler MD [address] | right | | | | [address] | [address] [place] | | | | | [place], [place] | [place] [address] | | | | | [address] | [phone] | | | | | [phone] | | | | | | | [...] [address] | | | | | | [place] [address] | | | | | | [phone] | | | | | | | [...] At | + + + | EXAM: [facility] RIGHT dated 03/05/2016 [...] In - 03/05/2016 2:52 PM PST EXAM: [facility] RIGHT | | [...]
--- OUTSIDE RECORDS SUMMARY | ~2019-06-06 | XMS | Encounter Summary ---
Demographics + + + | Address | [address] | | | [place] [address] | + + + | Home Phone [...] Author | [facility] | | | and [place] | + + + | Organization | [facility] | | | and [place] | + + + | Address | Unknown | + + + | Phone | Unavailable | + + + Support + + + + + | Name | Relationship | Address | Phone | + + + + + | Poncho Oquendo | ECON | [address] | | | | | [place] | | | | | [address] | | + + + + + | Marta Upton | ECON | [place] | | | | | [address] | | + + + + + Care Team Providers + +------+ + | Care Senior Erp Consultant Name | Role | Phone | [...] | | | | | Procedures | [address] | [address] [address] | | | | | [place] OFFICE | Phone: | [address] Phone: | | | | | OUTPATIENT | [phone] | [phone] | | | | | VISIT 25 | Fax: | Fax: | | | | | MINUTES | [phone] | [phone] | +--------+--------+ + + + + Encounter Details +--------+ + + + + | Date | Type | Department | Care Team | Description | +--------+ + + + + | 10/31/ | Hospital | [facility] | [facility], | Gallbladder cancer, | | 2015 | Encounter | MED CTR MEDICAL | Chad Soler MD [address] | carcinoma (HCC) | | | | ONCOLOGY CLINIC [address] [place] | (Primary Dx); | | | | [address] [facility] | [place] [address] | Neoplasm related | | | | [place] [address] | [phone] | pain (acute) | | | | [phone] | | (chronic) | +--------+ + + [...] nt from the original. Hematology/Oncology Progress Note [facility] Pt. Name/Age/: Aura Upton 53 y.o. 1960 Med. Record Number: [id number] Date of admission: 10/31/2014 Identifying Statement: Aura Upton is a 53 y.o. female from [address] [place] [address] with Recurrent Cholangiocarcinoma. The patient chart and [...] Brandon Garcia March 29, 2012, pathological specimen [id number], analyzed by Dr. Bowers of [facility] and was notable for a poorly-differentiated adenoc arcinoma of the gallbladder. Liver biopsy demonstrated mild portal inflammation. 2. On April 28, 2012, she successfully underwent an R0 resection by Dr. Tai Stanton at [facility], pathological specimen [id number] was notable for the absence of any residual carcinoma within the gallbladder bed. However, 2/8 regional lym ph nodes contained regionally metastatic disease. 3. Consultation by Dr. Elva Grey of the [facility] on May returned the recommendation for adjuvant chemoradiation therapy following [id number] as follows: Capecitabine at 750 mg/m sq [...] staging by Dr. Oziel Casillas of the [facility]. Pathological analysis was notable for [...] with Dr. Elva Grey the [facility] in June 26, 2014 who recommended additional chemotherapy was cisplatin at 75 mg meter squared on day 1 a nd gemcitabine 1250 mg per meter squared on day one and day 8 of acute 21 day cycle for 6-8 cycles. A second opinion was obtained by Dr. Richie Thayer of the [facility] iance who returned the recommendation [...] the recommendations of Dr. Richie Thayerof the [facility] with gemcitabine at 1000 mg per meter squared on day one and day 8 wi th cisplatin 25 mg meter squared on day one and day 8 of a Q 21 day cycle beginning on July 26, 2014 complicated by grade 3 neutropenia and grade [address] scan of the chest, abdomen and pelvis that [facility] on September 16, 2014 demonstrated no radiographic evidence of disease. Current Assessment & Plan Domo returned to clinic with her mother to initiate cycle #5 of cisplatin/gemcitabine for recurrent cholangiocarcinoma. 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 Previous analysis at [facility] in [place] confirmed adeq uate iron stores. A request for HIGINIO therapy was denied by her insurance provider. Plan; Initiate Cycle #5 Cis/gemcitabine for recurrent cholangiocarcioma. Treatment will be continued in [place] next week. Repeat imaging after Cycle#6 and if favorable, cross over to observation. Neoplasm related pain (acute) (chronic) Overview Pain due to recurrent cholangiocarcinoma. Current Assessment & Plan Patients with terminal and malignant pain will be exempt from the requirement for a writt en pain management agreement/narcotic contract. [[facility] Provider Maldonado ndbook of [...] has been changed since signin [facility] [place] amitriptyline (ELAVIL) 10 mg tablet (Taking) Take 10 mg by mouth nightly. dexamethasone (DECADRON) 4 mg tablet (Taking) Take one tablet PO as directed. Number of times this order has been changed since signin [facility] [place] docusate calcium (SURFAK) 240 mg capsule (Taking) Take 240 mg by mouth as needed. Number of times this order has been changed since signin [facility] [place] fish oil 1,000 mg capsule (Taking) Take 1,000 mg by mouth Daily. Number of times this order has been changed since signin [facility] [place] HYDROcodone-acetaminophen (VICODIN) 5-500 mg per tablet (Taking) Take 1 tablet by mouth e very 4 hours as needed. Number of times this order has been changed since signin [facility] [place] MULTIPLE VITAMIN PO (Taking) Take by mouth Daily. Number of times this order has been changed since signin [facility] [place] ondansetron (ZOFRAN ODT) 8 mg disintegrating tablet (Taking) Take 8 mg by mouth every 8 h ours as needed for Nausea. Probiotic Product (PROBIOTIC DAILY PO) (Taking) Take by mouth Daily. Number of times this order has been changed since signin [facility] [place] Allergy: Allergies Allergen Reactions Sulfa Antibiotics Objectives: Temp: 37 C (98.6 F) BP: 111/70 mmHg Pulse: 86 Resp: 16 SpO2: 99 % on Min/Max Temp past 24 hours:Temp Av C (98.6 F) Min: 37 C (98.6 F) Max: 37 C (98.6 F) No intake or output data in the 24 hours ending 10/31/14 2538 Wt. Admission: Weight: 83.5 kg (184 lb [...] J. Clin. Oncol.: Golden Gonzalez., Rodger Bro., Stveen Figueroa., Birdie Burns., Avery, TLuis Eduardo., James, [...] therapy ( contact Gabrielle Bean RN at [facility] or [facility]). Begin procrit today. INFORMED CONSENT: The nature and character of the proposed treatment with Cisplatin and [place] citabine with HIGINIO therapy with Procrit and [...] for three days, on day 2,3,4 at [facility]. Gabrielle has the order and has scheduled [...] this chart may have been created with [employer] voice recognition software. 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
--- OUTSIDE RECORDS SUMMARY | ~2019-06-06 | XMS | Clinical Summary ---
Demographics + + + | Address | [address] | | | [place] [address] | + + + | Home Phone [...] | [facility] | | | and [place] | + + + | Organization | [facility] | | | and [place] | + + + | Address | Unknown | + + + | Phone | Unavailable | + + + Support + + + + + | Name | Relationship | Address | Phone | + + + + + | Poncho Oquendo | ECON | [address] | | | | | [facility], [place] | | | | | [address] | | + + + + + | Marta Upton | ECON | [place] | | | | | [address] | | + + + + + Care Team Providers + +------+ + | Care Small Business Consultant Name | Role | Phone | [...] nose as needed for | | | 3/20 | | e | | | suspected [...] mg tablet | mouth. | | | 4/20 [...] (MAG-OX) 400 mg | | | | 11/03 | | e | | tablet | | | | 19 | | | + + + +---------+------+------+-------+ | estradiol | insert 1 tablet | | 0 | 02/16 | | Activ | | (VAGIFEM) 10 [...] | | + + + +---------+------+------+-------+ | traMADol (ULTRAM) | Take 1 tablet by | 30 | 0 | 04/14 | 03/2 | Expir | | 50 mg tablet | mouth every 6 hours | tablet | | / | 05/03 | ed | | | as needed for Pain | | | 20 | 20 | | | | for up to 10 days. 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 [[facility] | | Health and Services Provider Handbook [...] Garcia on | | 03/29/2012. Pathological specimen [id number] was analyzed by | | Liu Bowers M.D. of [facility] and was notable | | for a poorly-differentiated adenocarcinoma of the gallbladder. | | Liver biopsy was performed at the same time of the procedure and | | demonstrated portal inflammation.2. On 04/26/2012, she | | successfully underwent a R0 resection by Dr. Tai Stanton, of | | the [facility]. Pathological specimen | | [id number] was notable for the absence of any residual | | carcinoma within the gallbladder bed; however, 2/8 regional lymph | | nodes were positive for regionally metastatic disease.3. | | Consultation with Dr. Elva [facility] of the [facility] | [facility] on 05/17/2012, which returned the | [...] Dr. Miguel Henderson of the | | [facility]. 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 However, 122 of the remaining genes | | analyzed in the assay were all wild type.7. Repeat consultation | | with Dr. Elva Grey of the [facility] | | on 06/26/2014 returned the recommendation for additional | | chemotherapy with cisplatin at 75 mg/m2 on day 1 with gemcitabine | | at 1250 mg/m2 on day-1 and day-8 of the every 21-day cycle for | | 6-8 cycles. This was followed by a second opinion by Dr. Quiroz | | Jeovany of the [facility] [place] [facility] who recommended | | chemotherapy with cisplatin [...] recommendations of Dr. Richie Thayer of the [facility] | | [place] with gemcitabine at 1000 mg/m2 on day-1 and day-8 with | | cisplatin 25 mg/m2 on day-1 and day-8 of the every 21-day cycle, | | beginning on 07/26/2014. Chemotherapy was complicated by grade 3 | | neutropenia without fever a grade 3 thrombocytopenia without | | bleeding.10. Repeat CT scan of the abdomen and pelvis on | | 09/16/2014 at the [facility] in [facility] | | [place], demonstrated stable postoperative changes involving | | [...] the chest, abdomen, and pelvis at the [facility] in [place], [place], | | demonstrated stable postoperative changes [...] pelvis at the [facility] in [place], [place], on | | 06/23/2015 demonstrating postoperative changes in the right upper | | quadrant. No evidence of recurrence or any evidence of | | metastatic disease.15. Repeat CT scan of the chest, abdomen, and | | pelvis at the [facility] in [place], [place], on | | 09/24/2015 demonstrating right upper quadrant post-surgical | | changes. No evidence of recurrent neoplasm. Interval development | | of a small hernia containing bowel and fat 3 cm above the | | umbilicus.16. Repeat CT scan of the abdomen and pelvis on | | 12/22/2015 at the [facility] in [place], [place], | | demonstrating a 1.5 cm soft tissue nodule just inferior to the | | liver within the mesentery on the right. In addition, there were | | tiny nodules in the bilateral upper quadrants.17. PET CT scan at | | [facility] in [place], [place], on 12/31/2015 | | demonstrating benign [...] 06, 2016, at [facility] in [place], | | [place], demonstrated no evidence of recurrence or metastatic | | disease. Aura continued on observation without treatment.23. | | Repeat CT scan of the chest/abdomen/pelvis at [facility] [place] demonstrated progression of disease and | | [...] will see Dr. Richie Thayer at the [facility] | [facility] [place]. 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 Followed by | | Ellyn at [facility] in [place]. | | -04/26/2012: R0 Resection. -05/31/2012-09/03/2012 | [...] + + | 05/20/ | Telephone | Oncology | Reinaldo, | Care Coordination | | 2020 | | | Epifanio Soler MD | | +--------+ + + + + | 04/29/ | Telephone | Urology | Pedro Green, | Follow-up | | 2019 | | | DO | | +--------+ + + + + | 04/26/ | Anesthesia | | [place] | | | 2019 | Event | | CAM Will | | +--------+ + + + + | 04/26/ | Surgery | | Pedro Green, | CYSTOSCOPY URETERAL | | 2019 | | | DO | STENT | | | | | | REMOVAL/REPLACEMENT | +--------+ + + + + | 04/26/ | Hospital | | Pedro Geren, | | | 2019 | Encounter | | DO | | +--------+ + + + + | 04/26/ | Hospital | | Pedro Green, | | 2019 | Encounter | | DO | | +--------+ + + + + | 04/26/ | Hospital | | | Gallbladder cancer, | 2019 | Encounter | | | carcinoma (HCC); | | | | | | Obstruction of left | | | | | | ureter | +--------+ + + + + | 04/22/ | Preadmit | Pre-Admission | | | 2019 | Visit | Testing | | | +--------+ + + + + | 04/19/ | Telephone | Urology | Pedro Green, | Other (Labs for | 2019 | | | DO | Procedure) | +--------+ + + + + | 03/26/ | Office | Urology | Pedro Green, | Gallbladder cancer, | 2019 | Visit | | DO | carcinoma (HCC) | | | | | | (Primary Dx); | | | | | | Obstruction of left | | | | | | ureter | +--------+ + + + + from [...] | + + + + | INFLUENZA, [id number], | 04/14/2009 | | | UNSPECIFIED | [...] | | | | | [place] [address] | | | | | | [phone] | | | | | | | [...] 19-64 | 4 | | | | (2 of 3 - [...] + + | Breast Cancer | | 08/11/2015, 2012, | | | Screening | 8 | 07/01/2011, Additional history | | | | | exists | | + + + + + | Vaccine: | | 02/04/2011 | | | Dtap/Tdap/Td (2 - | 1 | | | | Td) | | | | + + + + + | Colorectal Cancer | | 02/14/2013 | | | Screening | 4 | | | | (Colonoscopy) | | | | + + + + + | Hepatitis C | Completed | 09/16/2014 | | | Screening | | | | + + + + + | Vaccine: Influenza | Completed | 11/22/2018, 12/27/2017, | | | | | 01/31/2017, Additional history | | | | | [...] Frm 7fr 24cm | Stent | | COOK | | 05/15/ | [id number] | | - SnaImplanted: Qty: 1 on | | | [employer] | | 2020 | /NA | | 11/29/2018 by Pedro Green | | | - COOK | | | /[id number] | | DO Alessandra at [facility] | | | | | | 02 | | [facility] | | | | | | | + +-------+--------+ +--------+--------+--------+ | [employer] Ureteral Stent | Stent | Left: | COOK | | 09/06/ | [id number] | | And PositionerImplanted: Qty: | | Ureter | [employer] | | 2021 | 4-R, | | 1 on 04/27/2019 by Peter, | | | - COOK | | | [id number] | | Pedro Aparicio DO at [facility] | | | | | | /NA | | | | | | | | /[id number] | | | | | | | | 29 | + +-------+--------+ +--------+--------+--------+ | Stent Uro Unvrs Frm 7fr 24cm | | Left: | COOK | | 11/12/ | [id number] | | - SnaImplanted: Qty: 1 on | | Ureter | [employer] | | 2019 | /NA | | 07/05/2018 by Pedro Green | | | - COOK | | | /[id number] | | DO Alessandra | | | [...] OF | | | TOWN | +---+--------+ from Last 3 Months Results FL C-Arm (04/27/2019 10:26 AM PDT) [...] | | | + +---------+ + + Anesthesia Airway Note (04/27/2019 9:58 AM PDT) [...] medication documentation. | | + + + from Last [...] +--------+ +--------+-------+---------+--------+ | BCBS | BCBS | [id number] | 02/14/19 | | | PPO | | | FEDERA | | 16-Pre | | | | | | L FEP | | sent | | | | + +--------+ +--------+-------+---------+--------+ | BCBS | BCBS | [id number] | 02/14/19 | | | PPO | | | FEDERA | | 16-Pre | | | | | | L FEP | | sent | | | | + +--------+ +--------+-------+---------+--------+ | [facility] | IHS | [id number] | 02/14/19 | | | Indemn | [...] Person | Self | [birth year] | [address] | | | al/Fam | | 1961 | [phone] | [place] [address] | | | jose alejandro | | | 5 (Home) | | | | | | | [phone] | | | | | | | 6 (Work) | | + +--------+ +--------+ + + | Aura Upton | Person | Self | [birth year] | | [address] | | | al/Fam | | 1961 | [phone] | [place] [address] | | | jose alejandro | | | 5 (Home) | | + +--------+ +--------+ + + Advance Directives + + + + + | Type | Date Recorded | Patient | Explanation | | | | 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
--- OUTSIDE RECORDS SUMMARY | ~2019-06-06 | XMS | Encounter Summary ---
Demographics + + + | Address | [address] | | | [place] [address] | + + + | Home Phone [...] Team Providers + +------+ + | Care Installer Name | Role | Phone | [...] | Medicine Clinic at | [address] | (Primary Dx); | | | | [facility] 4th Floor [address] | [address] [place], | Gallbladder cancer | | | | [place] | [place] [address] | ([facility]); Other | | | | Mailcode: [facility] | [phone] | specified | | | | [facility] | | pre-operative | | | | and Healing, | | examination | | | | Building 1,4th Floor | | | | | | [place], [place] | | | | | | [address] | | | | | | [phone] | | | +--------+---------+ + + + [...] Surgery Check in Locations Day Stay Unit [facility] [place], fourth floor Room 4514 [facility], fourth floor Admitting [facility], ninth floor [facility] Surgery Unit [facility], sixth floor Surgery Check in Time: [...] it is after office hours, call the [facility] fishing line winding machine operator at [phone] and ask them to page him or h er. Preparing For Your Surgery Video -- 7 minutes of instructions! If you have access to the Internet and would like to review our instructional video about g etting ready for your procedure day, please follow these directions: Access the [facility] website [email or web address] --> POPULAR RESOURCES --> Patient Guide --> [...] further investigation and manageme nt. A. Acute MD within 7 days: no B. Unstable angina/Recent MD (7- 30 days): no C. Decompensated CHF: [...] no Rate of cardiac , non fatal MD, non fatal cardiac arrest (RCRI) 0 risk [...] to this patient's care. JAYLA BARRON NP [facility] PREOPERATIVE MEDICINE CLINIC [address] [place] [phone] I spent 20 minutes with the [...] | + +--------+ + + + | NE COLLECTION VENOUS | Routin | 04/27/2012 | [...] [facility] | [address] | [place] [address] | | | SERVICES, CORE | PARK [...] [facility] | [address] | [place] [address] | | | SERVICES, | [address] [...] [facility] | [address] | [place] [address] | | | SERVICES, | [address] [...] view image for the detailed interpretation from [employer] results. | CARDIOLOGY | + + + + + + + + | Performing | Address | City/State/Zipcode | Phone Number | | Organization | | | | + + + + + | [facility] | [address] | [place], [place] | | | CARDIOLOGY | [facility] | [address] | | + + + + + [...] + + | [facility] | [address] | [place] [address] | | | OF CARE TESTS | [...]
--- OUTSIDE RECORDS SUMMARY | ~2019-06-06 | XMS | Encounter Summary ---
Demographics + + + | Address | [address] | | | [place] [address] | + + + | Home Phone [...] + + | Author | [facility] | | | and Eduardoana | + + + | Organization | [facility] | | | and Eduardoana | + + + | Address | Unknown | + + + | Phone | Unavailable | + + + Support + + + + + | Name | Relationship | Address | Phone | + + + + + | Poncho Oquendo | ECON | [address] | | | | | [place] | | | | | [address] | | + + + + + | Marta Upton | ECON | [place] | | | | | [address] | | + + + + + Care Team Providers + +------+ + | Care Law Writer Name | Role | Phone | [...] | | Carcinoma | Reinaldo, | W Sekiu | | | | | of gall | Epifanio C, | Amonate, | | | | | bladder | MD [address] | [place] [address] | | | | | (HCC) | [address] | Phone: | | | | | Procedures | [place], | [phone] | | | | | CT Chest | [place] [address] | Fax: | | | | | Abdomen | Phone: | [phone] | | | | | Pelvis w | [phone] | | | | | | Contrast | Fax: | | | | | | | [phone] | | +--------+--------+ + + + + [...] | | Carcinoma | Reinaldo, | W Sekiu | | | | | of gall | Epifanio C, | Amonate, | | | | | bladder | MD [address] | [place] [address] | | | | | (HCC) | [address] | Phone: | | | | | Procedures | [place], | [phone] | | | | | CT Chest | [place] [address] | Fax: | | | | | Abdomen | Phone: | [phone] | | | | | Pelvis w | [phone] | | | | | | Contrast | Fax: | | | | | | | [phone] | | +--------+--------+ + + + + Encounter Details +--------+ + + + + | Date | Type | Department | Care Team | Description | +--------+ + + + + | 12/17/ | Hospital | [facility] | Reinaldo, | Carcinoma of gall | | 2015 | Encounter | MED [facility] [address] | Epifanio Soler MD [address] | bladder (HCC) | | | | [place], | [address] [place] | | | | | [place] [address] | [place] [address] | | | | | [phone] | [phone] | | | | | | | [...] [facility] | | | | | | [place] [address] | | | | | | [phone] | | | | | | | [...] intravenous administration of 100 mL | | [id number] contrast. Oral contrast was administered. Multiplanar reformatted [...]
--- OUTSIDE RECORDS SUMMARY | ~2019-06-06 | XMS | Encounter Summary ---
Demographics + + + | Address | [address] | | | [place] [address] | + + + | Home Phone [...] Team Providers + +------+ + | Care Gynecology Teacher Name | Role | Phone | + +------+ + | Tomasa Wagner | PCP | | + +------+ + Encounter Details +--------+ + + + + | Date | Type | Department | Care Team | Description | +--------+ + + + + | 06/28/ | Telephone | Digestive Health | Tai Stanton, | | | 2012 | | Center at [facility] [address] | [address] | | | | | [address] [facility] | [facility] | | | | | for [facility] and | [place], [place] | | | | | [facility], [place] [address] | [address] | | | | | [place], [place] | [phone] | | | | | [address] | | | | | | [phone] | | | +--------+ + + + [...]
--- OUTSIDE RECORDS SUMMARY | ~2019-06-06 | XMS | Encounter Summary ---
Demographics + + + | Address | [address] | | | [place] [address] | + + + | Home Phone [...] + | Author | [facility] | | | and [place] | + + + | Organization | [facility] | | | and Eduardoana | + + + | Address | Unknown | + + + | Phone | Unavailable | + + + Support + + + + + | Name | Relationship | Address | Phone | + + + + + | Poncho Oquendo | ECON | [address] | | | | | [place] | | | | | [address] | | + + + + + | Marta Upton | ECON | [place] | | | | | [address] | | + + + + + Care Team Providers + +------+ + | Care Business Services Representative Name | Role | Phone | [...] STREET | | | | | FROM [facility]- | [place], | [place], | | | | | LABS/PORT | [place] [address] | [place] [address] | | | | | 6 HOUR RX | Phone: | Phone: | | | | | Procedures | [phone] | [phone] | | | | | [facility] | Fax: | Fax: | | | | | FOLLOW UP | [phone] | [phone] | +--------+--------+ + + + + Encounter Details +--------+ + + + + | Date | Type | Department | Care Team | Description | +--------+ + + + + | 05/20/ | Hospital | [facility] | Vladimir Robles, | Gallbladder cancer, | | 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 | MED CTR MEDICAL | [address] | carcinoma (HCC) | | | | ONCOLOGY CLINIC [address] [place], | (Primary Dx); Liver | | | | [place] | [place] [address] | metastases (HCC); | | | | [place] [address] | [phone] | Stage 3a chronic | | | | [phone] | | kidney disease; | | | [...] fr om the original. Hematology-Oncology Progress Note [facility] Pt. Name/Age/: Aura Upton 56 y.o. 1960 CSN: [id number] Date of service: 05/20/2017 Provider: Vladimir Robles [...] adjustment of her ch emotherapy, specifically the cis-rincon given her renal dysfunction. 1. Proceed with day 1, cycle 1 of dose adjusted cis-rincon and gemcitabine as ordered. 2. Increase OxyContin [...] nausea, has decided to t ry palliative cis-rincon/gemcitabine again to which she has responded in [...] and 6 hour treatment, labs done in [facility]. My chart: Medications: Current Outpatient Prescriptions Medication [...] this chart may have been created with Beacon Reader voice recognition software. Occasi onal wrong-word or [...] | Visit | | DO [address] | | | | | | [place] [address] | | | | | | [phone] | | | | | | | [...]
--- OUTSIDE RECORDS SUMMARY | ~2019-06-06 | XMS | Encounter Summary ---
Demographics + + + | Address | [address] | | | [place] [address] | + + + | Home Phone [...] Team Providers + +------+ + | Care Gis Analyst Developer Name | Role | Phone | [...] | | | | | Procedures | [place], [place] | [facility] [place] | | | | | CONSULT TO | [address] | [address] | | | | | ENT / FACIAL | Phone: | Phone: | | | | | PLASTIC | [phone] | [phone] | | | | | SURGERY | Fax: | Fax: | | | | | | [phone] | [phone] | +--------+--------+ + + + + Reason [...] | y | | Epic Dept | [facility] [address] | | | | | | [...] | | | | | | | [place], [place] | | | | | | | [address] | | | | | | | Phone: | | | | | | | [phone] | | | | | | | Fax: | | | | | | | [phone] | +--------+--------+ + + + + Encounter Details +--------+---------+ + + + | Date | Type | Department | Care Team | Description | +--------+---------+ + + + | 12/27/ | Office | [facility] [place] [facility] | Aamir Lau, | Nasal Septal Defect | | 2007 | Visit | Center at [facility] [address] | [address] | (Primary Dx); | | | | [address] | [place], [place] | Chronic Ethmoidal | | | | Mailcode: CH5E | [address] | Sinusitis; Other | | | | [facility] | [phone] | Diseases of Nasal | | | | and Healing, | | Cavity and Sinuses | | | | Building 1, 5th | | | | | | Floor [place], [place] | | | | | | [address] | | | | | | [phone] | | | +--------+---------+ + + + [...] documentation. Aamir Lau M.D., M.P.H., F.A.C.S. Director, [facility] Professor and Chief, Rhinology and [...] ESS and septoplasty by Dr. Benedict in [place]. She reports a prolonged recovery with sign [...] Rfl: No Known Allergies. Social HX: Lives [place], [place] No ETOH, No tobacc (quit several [...] | + + +--------+ + + | [place] NAS[facility] | Procedures | Routin | Chronic [...]
--- OUTSIDE RECORDS SUMMARY | ~2019-06-06 | XMS | Encounter Summary ---
Demographics + + + | Address | [address] | | | [place] [address] | + + + | Home Phone [...] + | Author | [facility] | | | and Eduardoana | + + + | Organization | [facility] | | | and Eduardoana | + + + | Address | Unknown | + + + | Phone | Unavailable | + + + Support + + + + + | Name | Relationship | Address | Phone | + + + + + | Poncho Oquendo | ECON | [address] | | | | | [place] | | | | | [address] | | + + + + + | Marta Upton | ECON | [place] | | | | | [address] | | + + + + + Care Team Providers + +------+ + | Care Commercial Loan Assistant Name | Role | Phone | [...] | | ONCOLOGY CLINIC [address] | [facility] | | | | | [address] [facility] | [place] [address] | | | | | [place] [address] | [phone] | | | | | [phone] | | | +--------+ + + + [...] | | | [facility] [address] | | | | | | [phone] | | | | | | | | +--------+---------+ + + + documented as of this encounter Visit Diagnoses Not on filedocumented in this encounter"
--- OUTSIDE RECORDS SUMMARY | ~2019-06-06 | XMS | Encounter Summary ---
Demographics + + + | Address | [address] | | | [place] [address] | + + + | Home Phone [...] | Author | [facility] | | | and Eduardoana | + + + | Organization | [facility] | | | and Eduardoana | + + + | Address | Unknown | + + + | Phone | Unavailable | + + + Support + + + + + | Name | Relationship | Address | Phone | + + + + + | Poncho Oquendo | ECON | [address] | | | | | [place] | | | | | [address] | | + + + + + | Marta Upton | ECON | [place] | | | | | [address] | | + + + + + Care Team Providers + +------+ + | Care Pulp Operator Name | Role | Phone | [...] | Epifanio Soler MD [address] | ([facility]) (Primary Dx) | | | | ONCOLOGY [address] | [address] [place] | | | | | [place], | [place] [address] | | | | | [place] [address] | [phone] | | | | | [phone] | | | +--------+ + + + [...] [address] | | | | | | [place] [address] | | | | | | [phone] | | | | | | | | +--------+---------+ + + + documented as of this encounter Visit Diagnoses + + | Diagnosis | + + | 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
--- OUTSIDE RECORDS SUMMARY | ~2019-06-06 | XMS | Encounter Summary ---
Demographics + + + | Address | [address] | | | [place] [address] | + + + | Home Phone [...] Author | [facility] | | | and Eduardoana | + + + | Organization | [facility] | | | and Eduardoana | + + + | Address | Unknown | + + + | Phone | Unavailable | + + + Support + + + + + | Name | Relationship | Address | Phone | + + + + + | Poncho Oquendo | ECON | [address] | | | | | [place] [place] | | | | | [address] | | + + + + + | Marta Corbin | ECON | [place], [place] | | | | | [address] | | + + + + + Care Team Providers + +------+ + | Care Natural Resources Technician Name | Role | Phone | + +------+ + PCP | Unavailable | + +------+ + Encounter Details +--------+ + + + + | Date | Type | Department | Care Team | Description | +--------+ + + + + | 09/28/ | Hospital | [facility] | | | | 2012 | Encounter | MED CTR XRAY [address] | | | | | | [place] | | | | | | [place] [address] | | | | | | [phone] | | | +--------+ + + + [...] [facility] | | | | | | [place] [address] | | | | | | [phone] | | | | | | | [...] Performed At | + + + | [facility] Diagnostic Imaging | [facility] | | Department [address] [place] [address] | [facility] | | [ rep [address]] [ rep [facility] | | st zip] Signed | - IMAGING | | | | | Patient Name: AURA CORBIN Physician: | | | SHEP.20 : 1960 Age: 51 Sex: F Unit #: [id number] | | | Exam Date: 09/28/12 Location: [facility] | | | Report #: [id number] Page: | | | %(RAD)RES..mtdd.print.filter("pg") of %(RAD) | | | RES..mtdd.print.filter("tpg") | | | | | | Accession Number: [id number] | | | ABDOMINAL ULTRASOUND, 09/28/2012 CLINICAL [...] | | | demonstrates increased echogenicity, likely customer field representative of fatty | | | infiltration. [...] Transcribed | | | Date/Time: 09/28/2012 12:53 Demolition Expert: | | | <<Signature on File>> | | | Jj | | | MD Franck09/28/12 2019 <Electronically signed by Jj Juárez MD> | | | Jj Juárez MD 09/28/12 1230 Demolition Expert: [employer] | | | Tkvfuiwmlreix70/15/13 1192 Tai Stanton MD | | | Tej Boyce DO | | + + + + + + + + | Performing | Address | City/State/Zipcode | Phone Number | | Organization | | | | + + + + + | [facility] | [address] | [place] | [phone] | | [facility] | | [address] | | | - IMAGING | | | | + + + + + XR Abdomen AP (09/28/2012 10:03 AM PDT) + + | Specimen | + + | | + + + + + | Narrative | Performed At | + + + | Accession Number: [id number] ABDOMINAL ULTRASOUND, | | | 09/28/2012 CLINICAL [...] demonstrates increased | | | echogenicity, likely customer field representative of fatty infiltration. There is | [...] Transcribed | | | Date/Time: 09/28/2012 12:53 Demolition Expert: | | | <<Signature on File>> | | | Jj | | | MD Franck09/28/12 2019 <Electronically signed by Jj Juárez MD> | | | Jj Juárez MD 09/28/12 1230 Demolition Expert: [employer] | | | Kkwrazscpxxqe29/15/13 1253 MD Tej Ramachandran, DO | | | | | + + + + + | Procedure Note | + + | Edmundo, Rad Results In - 07/07/2015 9:27 AM PDT Accession Number: [id number] | | ULTRASOUND, 09/28/2012 CLINICAL HISTORY: HISTORY [...] pancreas demonstrates increased | | echogenicity, likely customer field representative of fatty infiltration. There is limited [...] MD>Jj Juárez MD 09/28/12 | | 1230Transcriptionist: [employer] Delsdikwwsqik43/15/13 1253BNusrat Holliday, | | DO | |There is normal [...] 12:30 | |Transcribed Date/Time: 09/28/2012 12:53 | |Demolition Expert: | | | | | | | |<<Signature on File>> | | | |Jj Juárez MD09/28/12 2019 | |<Electronically signed by Jj Juárez MD> | | | | | |Jj Juárez MD 09/28/12 1230 | |Demolition Expert: [employer] Kukyvevvxknqd52/15/13 1253 | | | | | |Tai Stanton MD | |Tej Boyce, DO | + + documented in this encounter Visit Diagnoses Not on filedocumented in this encounter
--- OUTSIDE RECORDS SUMMARY | ~2019-06-06 | XMS | Encounter Summary ---
Demographics + + + | Address | [address] | | | [place] [address] | + + + | Home Phone [...] | Author | [facility] | | | and Eduardoana | + + + | Organization | [facility] | | | and Eduardoana | + + + | Address | Unknown | + + + | Phone | Unavailable | + + + Support + + + + + | Name | Relationship | Address | Phone | + + + + + | Poncho Oquendo | ECON | [address] | | | | | [place] [place] [place] | | | | | [address] | | + + + + + | Marta Upton | ECON | [place], [place] | | | | | [address] | | + + + + + Care Team Providers + +------+ + | Care Art Objects Supervisor Name | Role | Phone | + +------+ + PCP | Unavailable | + +------+ + Encounter Details +--------+ + + + + | Date | Type | Department | Care Team | Description | +--------+ + + + + | 03/12/ | Hospital | [facility] | Hakan Cherry | | | 2011 | Encounter | MED CTR XRAY [address] | [address], [address] | | | | [place] | [place], [place] | | | | | [place] [address] | [address] | | | | | [phone] | | | +--------+ + + + [...] | Visit | | DO [address] [facility] | | | | | | [place] [address] | | | | | | [phone] | | | | | | | [...] Performed At | + + + | [facility] Diagnostic Imaging Department | [place] | | [address] [facility] [place] | [facility] | | RIGHT HIP, 03/12/2011 | DIAG [...] Transcribed Date/Time: 03/12/2011 | | | 11:29 Model And Mold Maker Plaster: <Electronically Signed by Alejandro Keller | | | MD Mo> 03/12/11 1459 | | + + + + + | Procedure Note | + + | Edmundo, Hardy Conversion - 03/23/2013 4:38 PM [facility] | | Diagnostic Imaging Department [address] [facility] [place] | | RIGHT HIP, 03/12/2011 CLINICAL HISTORY: [...] by Alejandro Hassan MD> 03/12/11 | | 3079 | |FINDINGS: AP view of the pelvis [...] 11:24 | |Transcribed Date/Time: 03/12/2011 11:29 | |Model And Mold Maker Plaster: | |<Electronically Signed by Alejandro Hassan MD> 03/12/11 4418 | + + + +---------+ + + [...] Performed At | + + + | [facility] Diagnostic Imaging Department | [facility] | | [address] [facility] | [facility] | | LATERAL VIEWS, LUMBAR SPINE | [...] | | | Transcribed Date/Time: 03/12/2011 11:29 Model And Mold Maker Plaster: | | | <Electronically Signed by Alejandro Hassan MD> 03/12/11 1459 | | + + + + + | Procedure Note | + + | Hardy Wyatt Conversion - 03/23/2013 4:38 PM [facility] | | Diagnostic Imaging Department [address] [facility] [place] | | LATERAL VIEWS, LUMBAR SPINE CLINICAL [...] 11:23 | |Transcribed Date/Time: 03/12/2011 11:29 | |Model And Mold Maker Plaster: | |<Electronically Signed by Alejandro Hassan MD> [...]
--- OUTSIDE RECORDS SUMMARY | ~2019-06-06 | XMS | Encounter Summary ---
Demographics + + + | Address | [address] | | | [place] [address] | + + + | Home Phone [...] Author | [facility] | | | and Eduardoana | + + + | Organization | [facility] | | | and Eduardoana | + + + | Address | Unknown | + + + | Phone | Unavailable | + + + Support + + + + + | Name | Relationship | Address | Phone | + + + + + | Poncho Oquendo | ECON | [address] | | | | | [facility] [place] [place] | | | | | [address] | | + + + + + | Marta Upton | ECON | [place], [place] | | | | | [address] | | + + + + + Care Team Providers + +------+ + | Care Fire Marshal Name | Role | Phone | + +------+ + PCP | Unavailable | + +------+ + Encounter Details +--------+ + + + + | Date | Type | Department | Care Team | Description | +--------+ + + + + | 03/19/ | Hospital | [facility] | | | | 2013 | Encounter | MED CTR XRAY [address] | | | | | | [place] | | | | | | [place] [address] | | | | | | [phone] | | | +--------+ + + + [...] 2019 | Visit | | DO [address] | | | | | | [place] [address] | | | | | | [phone] | | | | | | | [...] Performed At | + + + | [facility] Diagnostic Imaging | [place] | | Department [address], [place] | [facility] | | [ rep ct [address]] [ rep ct [facility] | | st zip] Signed | - IMAGING | | | | | Patient Name: JENELLEAURA HANSON Physician: | | | LIZBETH.01 : 1960 Age: 52 Sex: F Unit #: [id number] | | | Exam Date: 03/19/13 [place] [facility] | | | Report #: [id number] Page: | | | %(RAD)RES..mtdd.print.filter("pg") of %(RAD) | | | RES..mtdd.print.filter("tpg") | | | | | | Accession Number: [id number] | | | CT ABDOMEN WITH CONTRAST [...] | | | Transcribed Date/Time: 03/19/2013 18:25 Tobacco Sprayer: | | | MS1 <<Signature on File>> | | | Mathieu | | | Emir Brasher MD03/19/131940 <Electronically signed by Mathieu Field | | | Anshu LI> Mathieu Brasher MD 03/19/13 1446 | | | Tobacco Sprayer: Catarino Mjafvttevkkns76/03/14 1825 | | | Epifanio Najera MD | | + + + + + + + + | Performing | Address | City/State/Zipcode | Phone Number | | Organization | | | | + + + + + | [facility] | [address] | [place] | [phone] | | [facility] | | [address] | | | - IMAGING | | | | + + + + + documented in this encounter Visit Diagnoses Not on filedocumented in this encounter
--- OUTSIDE RECORDS SUMMARY | ~2019-06-06 | XMS | Encounter Summary ---
Demographics + + + | Address | [address] | | | [place] [address] | + + + | Home Phone [...] | Author | [facility] | | | and Eduardoana | + + + | Organization | [facility] | | | and Eduardoana | + + + | Address | Unknown | + + + | Phone | Unavailable | + + + Support + + + + + | Name | Relationship | Address | Phone | + + + + + | Poncho Oquendo | ECON | [address] | | | | | [place] [place] | | | | | [address] | | + + + + + | Marta Upton | ECON | [place], [place] | | | | | [address] | | + + + + + Care Team Providers + +------+ + | Care Study Lead Name | Role | Phone | + +------+ + PCP | Unavailable | + +------+ + Encounter Details +--------+ + + + + | Date | Type | Department | Care Team | Description | +--------+ + + + + | 07/15/ | Hospital | [facility] | Dale Taylor MD | | | 2011 | Encounter | MED CTR XRAY [address] | [address] [place] | | | | | [place] | [address] [place], | | | | | [place] [address] | [place] [address] | | | | | [phone] | [phone] | | | | | | | [...] [address] | | | | | | [place] [address] | | | | | | [phone] | | | | | | | [...] Performed At | + + + | [facility] Diagnostic Imaging Department | [facility] | | [address] [facility] | [facility] | | MRI OF THE BRAIN EXTENDED [...] Transcribed Date/Time: 07/16/2011 12:57 | | | National Facilities Manager: <Electronically Signed by Mathieu Brasher, | | | > 07/16/11 6277 | | + + + + + | Procedure Note | + + | Edmundo, Rad Conversion - 03/23/2013 5:27 PM [facility] | | Diagnostic Imaging Department [address] [place] [address] | | MRI OF THE BRAIN EXTENDED [...] 12:45 | |Transcribed Date/Time: 07/16/2011 12:57 | |National Facilities Manager: | |<Electronically Signed by Mathieu Brasher [...]
--- OUTSIDE RECORDS SUMMARY | ~2019-06-06 | XMS | Encounter Summary ---
Demographics + + + | Address | [address] | | | [place] [address] | + + + | Home Phone [...] Providers + +------+ + | Care Automotive Product Engineer Name | Role | Phone | [...] MD | | | | | Nahid [facility] Shay | Genevieve Acosta, | | | | | Hospital Admitting | | | | | | Desk Located on the | | | | | | 9th floor | | | | | | [place], [place] | | | | | | [address] | | | +--------+ + + + [...] Right; Forearm | Genevieve Acosta, | Elva aYng RN | | Periph | | MD [...]
--- OUTSIDE RECORDS SUMMARY | ~2019-06-06 | XMS | Encounter Summary ---
Demographics + + + | Address | [address] | | | [place] [address] | + + + | Home Phone [...] [facility] | | | and Eduardoana | + + + | Organization | [facility] | | | and Eduardoana | + + + | Address | Unknown | + + + | Phone | Unavailable | + + + Support + + + + + | Name | Relationship | Address | Phone | + + + + + | Poncho Oquendo | ECON | [address] | | | | | [facility] [place] | | | | | [address] | | + + + + + | Marta Upton | ECON | [place], [place] | | | | | [address] | | + + + + + Care Team Providers + +------+ + | Care Clinical Research Management Associate Name | Role | Phone | + +------+ + PCP | Unavailable | + +------+ + Encounter Details +--------+ + + + + | Date | Type | Department | Care Team | Description | +--------+ + + + + | 10/12/ | Hospital | [facility] | | | | 2012 - | Encounter | [facility] | | | | | | CENTER [address] | | | | 10/14/ | | [place] | | | | 2012 | | [address] | | | | | | [phone] | | | +--------+ + + + [...] [address] | | | | | | [place] [address] | | | | | | [phone] | | | | | | | [...] + | [facility] | [address] | [place] | [phone] | | [facility] | | [address] | | | - LABORATORY | | | | + + + + + | [facility] | [address] | [place] | | | [facility] | | [id number] [place] [address] | | | - LABORATORY | | [...] | | (formerly Mahad) Advia | | [facility] | | | | Centaur immunoassay | [...] | | | | [address], [place], [place] | | | | | | [address] CLIA: | | | | | | [id number] | | | | + + + + + + + + | Specimen | + + | | + + + + + + + | Performing | Address | City/State/Zipcode | Phone Number | | Organization | | | | + + + + + | [facility] | [address] | [place] | [phone] | | [facility] | | [address] | | | - LABORATORY | | | | + + + + + | [facility] | [address] | [place], [place] | | | [facility] | | [id number] | | | - [...] + | [facility] | [address] | [place], [place] | [phone] | | [facility] | | [address] | | | - LABORATORY | | | | + + + + + | [facility] | [address] | [place] | | | [facility] | | [address], [facility] | | | - LABORATORY | | [...] + | [facility] | [address] | [place] | [phone] | | [facility] | | [address] | | | - LABORATORY | | | | + + + + + | [facility] | [address] | [place] | | | [facility] | | [id number] | | | - [...] | | | DIFFERENTIA | | | [facility] | | | L ? | | [...] + | [facility] | [address] | [place], [place] | [phone] | | [facility] | | [address] | | | - LABORATORY | | | | + + + + + | [facility] | [address] | [place], [place] | | | [facility] | | [address], [facility] | | | - LABORATORY | | [...] | | (formerly Mahad) Advia | | [facility] | | | | SuperMamaaur immunoassay | | MEDICAL | | | [...] | | | | [address] [place], [place] | | | | | | [address] CLIA: | | | | | | [id number] | | | | + + + + + + + + | Specimen | + + | | + + + + + + + | Performing | Address | City/State/Zipcode | Phone Number | | Organization | | | | + + + + + | [facility] | [address] | [place], [place] | [phone] | | [facility] | | [address] | | | - LABORATORY | | | | + + + + + | [facility] | [address] | [place], [place] | | | [facility] | | [address], [facility] | | | - LABORATORY | | [...] + | [facility] | [address] | [place] | [phone] | | [facility] | | [address] | | | - LABORATORY | | | | + + + + + | [facility] | [address] | [place] | | | [facility] | | [id number] | | | - [...] + | [facility] | [address] | [place], [place] | [phone] | | [facility] | | [address] | | | - LABORATORY | | | | + + + + + | [facility] | [address] | [place], [place] | | | [facility] | | [address], [facility] | | | - LABORATORY | | [...] + | [facility] | [address] | [place], [place] | [phone] | | [facility] | | [address] | | | - LABORATORY | | | | + + + + + | [facility] | [address] | [place], [place] | | | [facility] | | [address] [place] [address] | | | - LABORATORY | | [...] | | (formerly Mahad) Advia | | [facility] | | | | Centaur immunoassay | [...] Age[place] | | | | | | [address] CLIA: | | | | | | [id number] | | | | + + + + + + + + | Specimen | + + | | + + + + + + + | Performing | Address | City/State/Zipcode | Phone Number | | Organization | | | | + + + + + | [facility] | [address] | [place], [place] | [phone] | | [facility] | | [address] | | | - LABORATORY | | | | + + + + + | [facility] | [address] | [place] | | | [facility] | | [address] [place] [address] | | | - LABORATORY | | [...] + | [facility] | [address] | [place] | [phone] | | [facility] | | [address] | | | - LABORATORY | | | | + + + + + | [facility] | [address] | [place] | | | [facility] | | [address], [facility] | | | - LABORATORY | | [...] + | [facility] | [address] | [place], [place] | [phone] | | [facility] | | [address] | | | - LABORATORY | | | | + + + + + | [facility] | [address] | [place], [place] | | | [facility] | | [address], [facility] | | | - LABORATORY | | [...] + | [facility] | [address] | [place], [place] | [phone] | | [facility] | | [address] | | | - LABORATORY | | | | + + + + + | [facility] | [address] | [place], [place] | | | [facility] | | [address] [place] [address] | | | - LABORATORY | | [...] | | (formerly Mahad) Advia | | [facility] | | | | SuperMamaaur immunoassay | | MEDICAL | | | [...] [place] | | | | | | [address] CLIA: | | | | | | [id number] | | | | + + + + + + + + | Specimen | + + | | + + + + + + + | Performing | Address | City/State/Zipcode | Phone Number | | Organization | | | | + + + + + | [facility] | [address] | [place], [place] | [phone] | | [facility] | | [address] | | | - LABORATORY | | | | + + + + + | [facility] | [address] | [place], [place] | | | [facility] | | [address], [facility] | | | - LABORATORY | | [...] [address] | [place] | [phone] | | [facility] | | [address] | | | - LABORATORY | | | | + + + + + | [facility] | [address] | [place], [place] | | | [facility] | | [address], [facility] | | | - LABORATORY | | [...] [address] | [place] | [phone] | | [facility] | | [address] | | | - LABORATORY | | | | + + + + + | [facility] | [address] | [place] | | | [facility] | | [address] [place] [address] | | | - LABORATORY | | | | + + + + + documented in this encounter Visit Diagnoses Not on filedocumented in this encounter"
--- OUTSIDE RECORDS SUMMARY | ~2019-06-06 | XMS | Encounter Summary ---
Demographics + + + | Address | [address] | | | [place] [address] | + + + | Home Phone [...] Providers + +------+ + | Care Manager Trade Marketing Name | Role | Phone | [...] | | | | | | [place] | | | | | | [address] | | | +--------+ + + + [...] + + documented in this encounter Results GENETRABrozengo SOLID TUMOR PANEL (03/23/2016) + + + + + + | Component | Value | Ref Range | Performed | Pathologist | | | | | At | Signature | + + + + + + | [facility] | | [facility] | | [...] | | | | | | NTRK1 [id number] | | | | | | CDKN2A FGF18 | | | | | | KRAS NTRK2 | | | | | | [id number] CHEK1 | | | | | | FGF19 MAP2K1 | | | | | | NTRK3 NOD52YPRS | | | | | | CHEK2 FGF3 | | | | | | MAP2K2 PALB2 | | | | | | BST2QTJ CTNNB1 | | | | | | FGF4 MAP2K4 | | | | | | MXDG2EE0 XTPJ3CH | | | | | | DDR2 FGFR1 MAPK1 | | | | | | PDGFRA | | | | | | OH0YGAX DDX11 | | | | | | FGFR2 MDC1 PIK3CA | | | | | | RFOGTGG8A EGFR | | | | | | FGFR3 MDM2 PIK3CB | | | | | | RICTORATM ERBB2 | | | | | | FGFR4 MDM4 | | | | | | PIK3R1 LKQ3OEP | | | | | | ERBB3 GNA11 | | | | | | MET PMS1 TRB2QBJ1 | | | | | | ERBB4 GNAQ MLH1 | | | | | | PMS2 RPTORBARD1 | | | | | | ERCC2 GNAS MLH3 | | | | | | POLE LUKL9AMUS ERCC5 | | | | | | IBWY3J5W MRE11A | | | | | | MLS8Q7V ZOQS9RBCR6 | | | | | | ESR1 HRAS MSH2 | | | | | | PPP6C CHE21AKKZ5 | | | | | | MRK621J IDH1 | | | | | | MSH6 PTCH1 | | | | | | FOL0IHKI5 FANCA | | | | | | IDH2 MTOR PTEN | | | | | | [id number] FANCC | | | | | | IDO1 MUTYH | | | | | | RAC1 BMO0GTXS0 | | | | | | FANCD2 IDO2 MYC | | | | | | RAD50 [id number] | | | | | | FANCE INPP4B | | | | | | NBN RAD51 | | | | | | [id number] FANCF | | | | | | JAK2 NF1 | | | | | | [id number] | | | | | | FANCG [...] | | | | | | MSH2 [id number] | | | | | | c.980C>T hg19 chr2 | | | | | | [id number] C | | | | | | TTP53 [id number] | | | | | | c.743G>A hg19 chr17 | | | | | | [id number] | | | | | | C [...] # | | | | | | [id number]. It has not | | | | [...] | | | | | determined bythe [facility] | | | | | | Carter [...] | | | | | | [facility] | | | | | | [facility]osticsLaboratories | | | | | | are fully licensed by | | | | | | the state of [place] | | | | | | under CLIA and | | | | | | areaccredited by [employer] | | | | | | of [place] | | | | | | Pathologists [...] + + + + | [facility] | [address] | [place] [address] | | | DIAGNOSTIC | [address] | | | | LABORATORIES | | | | + + + + + documented in this encounter Visit Diagnoses Not on filedocumented in this encounter"
--- OUTSIDE RECORDS SUMMARY | ~2019-06-06 | XMS | Encounter Summary ---
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 | MD [address] | [place], | | | | | (HCC) | [address] | [place] [address] | | | | | Procedures | [place], | Phone: | | | | | MD | [place] [address] | [phone] | | | | | DIPHENHYDRAM | Phone: | Fax: | | | | | INE HCL | [phone] | [phone] | | | | | INJECTIO, 50 | Fax: | | | | | | MG MD | [phone] | | | | | | ONDANSETRON [...] | | | | | | MCG MD | | | | | | | INJECTION, | | | | | | | FAMOTIDINE, | | | | | | | 20 MG MD | | | | | [...] + + | 05/27/ | Hospital | [facility] | Vladimir Robles, | Canceled (Clinic | | 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 | MED CTR CHEMO | MD [address] | and/or Provider | | | | INFUSION [address] [place], | Cancellation) | | | | [place], | [place] [address] | | | | | [place] [address] | [phone] | | | | | [phone] | | | +--------+ + + + [...] | | | | | [place] [address] | | | | | | [phone] | | | | | | | | +--------+---------+ + + + documented as of this encounter Visit Diagnoses Not on filedocumented in this encounter"
--- OUTSIDE RECORDS SUMMARY | ~2019-06-06 | XMS | Encounter Summary ---
Demographics + + + | Address | [address] | | | [place] [address] | + + + | Home Phone [...] Providers + +------+ + | Care Manager Transfusion Name | Role | Phone | + [...] | | | Alexis [address] | [facility] | | | | | [address] | [place], [place] | | | | | Alexis, 7th floor | [address] | | | | | [place], [place] | [phone] | | | | | [address] | | | | | | [phone] | | | +--------+ + + + [...]
--- OUTSIDE RECORDS SUMMARY | ~2019-06-06 | XMS | Encounter Summary ---
Demographics + + + | Address | [address] | | | [place] [address] | + + + | Home Phone [...] Team Providers + +------+ + | Care Telecom Field Technician Name | Role | Phone | [...] | Facial Plastics & | [address] | Pre-Operative | | | | Reconstructive | [place]ma [place], | Examination (Primary | | | | Services at [facility] | [place] [address] | Dx); Perforation of | | | | [address] | [phone] | Nasal Septum | | | | Mailcode: CH5E | | | | | | [facility] | | | | | | and Healing, | | | | | | Building 1, 5th | | | | | | Floor [place], [place] | | | | | | [address] | | | | | | [phone] | | | +--------+---------+ + + + [...] surgeries scheduled to take place on the [facility] at the [facility]: Surgeries scheduled in the [facility] (4 North): registration is located on the 4th floor of [facility] (Day Surgery). Surgeries scheduled in the [facility]: registration is located on the 9th floor. Surgeries scheduled in [facility]: registration is located on the 6th floor. Surgeries scheduled in the [facility]: registration is located i n the [facility] on the first floor. For surgeries scheduled to take place at the [facility]: registration is l ocated [...] If you use specialized medical equipment at [facility], please check with your provider before [...] PDT documented in this encounter Progress Notes Buck, Virgilio, MD - 07/03/2008 5:13 PM PDTClinic: Facial Plastic and Reconstructive Surgery Cl in [place] is a 47 y.o. [...] of Otolaryngology/Head and Neck Surgery [facility] [email or web address], Prudencio Coello MD - 2008 12:34 AM PDT Pre-Procedure History and Physical Date of Admission: 07/04/2008 Clinic: Facial Plastic and Reconstructive Surgery Clinic Aura Upt[place] is a 47 y.o. female seen today [...] BTL Allergies: nkda Social History: Lives in [place]. Past smoking history, none now. No alcohol [...] wishes to sc hedule. Jose Olivia MD Route Service Representative Facial Plastic and Reconstructive Surgery Department of Otolaryngology/Head and Neck Surgery [facility] Email - [email or web address] HISTORY: Clinic: Facial Plastic and [...] today. Photos obtained. She met with my linter tender maximo hirsch. Followup arranged for preop. Time spent with patient /family, reviewing studies/ recor ds 20 minutes, with >50 % of time spent in consultation and coordination of care. Virgilio Buck MD FACS Professor Facial Plastic and Reconstructive Surgery Dept. of Otolaryngology/Head and Neck Surgery [facility] tel fax email [email or web address] CURRENT PROBLEM LIST: Patient Active Problem List [...] 06/30/2008 12:34 AM PDTdocumented in this encounter Plan of Treatment Not on filedocumented as of this encounter Visit Diagnoses + + | Diagnosis | + + | Other specified pre-operative examination - Primary | + + | Perforation of nasal septum Other diseases of nasal cavity and sinuses | + + documented in this encounter"
--- OUTSIDE RECORDS SUMMARY | ~2019-06-06 | XMS | Encounter Summary ---
Demographics + + + | Address | [address] | | | [place] [address] | + + + | Home Phone [...] Team Providers + +------+ + | Care Special Agent Fbi Name | Role | Phone | + +------+ + | Tomasa Wagner | PCP | | + +------+ + Encounter Details +--------+ + + + + | Date | Type | Department | Care Team | Description | +--------+ + + + + | 06/09/ | Abstract | Digestive Health | Tai Stanton, | | | 2012 | | Center at [facility] [address] | [address] | | | | | [address] [facility] | [facility] | | | | | for Health and | [place], [place] | | | | | [facility] [place] [address] | [address] | | | | | [place], [place] | [phone] | | | | | [address] | | | | | | [phone] | | | +--------+ + + + [...]
--- OUTSIDE RECORDS SUMMARY | ~2019-06-06 | XMS | Encounter Summary ---
Demographics + + + | Address | [address] | | | [place] [address] | + + + | Home Phone [...] + +------+ + | Care Venetian Blind Maker Name | Role | Phone | [...] HIEN Maya | | | | | [place], [place] | [address] | | | [birth year]/ | | [address] | [place], [place] | | | 2017 | | [phone] | [address] | | | | | | [phone] | | | | | | | | | | | | Marbin Espinoza MD | | | | | | [address] | | | | | | [place], | | | | | | [place] [address] | | | | | | [phone] | | | | | | | | | | | | Lloyd Garcai, | | | | | | [address] | | | | | | [address] | | | | | | [place], [place] | | | | | | [address] | | | | | | [phone] | | | | | | | [...] might be differen t from the original. [facility] Discharge Summary Discharging Provider: RAGHU JARRETT MD [...] # Klebsiella bacteremia # infected portacath At [facility], Ms. Upton was hypotensive to 70/40s with fever concerning for septic s hock. She received IV fluids and 1 unit pRBCs for Hgb of 7.0 and was transferred to [facility] for further care. On admission to [facility], she was no longer hypotensive and did not require vasopressors. She was started on cefepime, flagyl, and vancomycin. Blood cultures at OSH fro m 12/23 revealed Klebsiella pneumoniae from both R hand and portacath. It was pansentitive. I nfectious disease was consulted who found that pt has Klebsiella bacteremia 1 month ago joyce whiting admitted to [facility] for sepsis. Given 2 bacteremic events, portacath [...] date. Culture from cath tip 12/27: pending [facility] Blood culture 12/23 x2 (peripheral and port) GNR; cx Klebsiella pneumonia (R: ampicillin; s: cefazolin, ceftriaxone, meropenem, ciprofloxacin, tmp/smx) Discharge Medications: Medication List START taking these medications ciprofloxacin HCl 500 mg Tab Commonly known as: CIPRO Take 1 tablet by mouth every twelve hours. Indications: port infection NARCAN 4 mg/actuation [place] Generic drug: naloxone Instill 1 spray into [...] [address] [place] [address] VALERIY CARMONA MD . Specialty: Family Medicine Contact information [facility] [address] [place] [address] Discharge Physical Exam: Last 24 hour min/max [...] Raghu Jarrett M.D. Internal Medicine PGY-3 Pager [phone] Associated attestation - Lloyd Garcia MD - 12/27/2017 10:01 PM [facility] ATTESTATION Date of admission: 12/23/2017 11:11 PM [...] and follow up plan. Lloyd Garcia MD Social Media Community Managerfilm booker Clinical Hospitalist and Medicine Teaching Service Division of [facility] Medicine Pager [phone] Patients Hospital Problem List: Active Hospital Problems [...] MD - 12/27/2017 12:40 PM PST{Diet Inst ructions:88810} Discharge Instr - Activity (facility) Lloyd Garcia MD - 12/27/2017 12:40 PM PST{Activ ity Orders:64818} Additional Instructions Lloyd Garcia MD - 12/27/2017 12:39 PM PST{Additional Instruct ions AVS:36094} Opioid Pain Management {Opioid pain medication plan:12097} documented in this encounter Medications at Time [...] 15 oz) (12/23/172321) Physical Exam: General: pleasant exg-jrcjr-ihejnmfnj woman lying in bed in no acute [...] oral BID Microbiology: 11/07 blood culture at [facility] also grew klebsiella pneumoniae, when she had sepsis 12/23 blood culture at [facility] Klebsiella pneumoniae NGTD 12/23 blood cultures here Imaging: No new imaging Hospital problem list: Patient Active Problem List Diagnosis Date Noted Bacteremia due to Gram-negative bacteria 12/24/2017 Priority: 1 JULY (acute kidney injury) (HCC) 12/24/2017 Priority: 2 Cholangiocarcinoma (HCC) 04/27/2012 Priority: 3 Overview Note: -Diagnosed 2012. Followed by Dr. Ragland at [facility] in [place]. -04/26/2012: R0 Resection. -05/31/2012-09/03/2012 Chemotherapy: Xeloda/gemictabine x4 [...] her port has been used. Records per [facility] from 11/07 and 12/23. Was on antibiotics [...] Arley ramirez - update Dr. Ragland in [place] on Tuesday # thrombocytopenia Likely chemotherapy related [...] Maker Primary Surrogate Decision Maker Poncho Oquendo [phone] Patient was staffed with my attending Dr. Garcia who agrees with my assessment and plan unl ess otherwise indicated. Myriam Holt MD 12/25/2017 PGY1 physician [id number] Associated attestation - Lloyd Garcia MD - 12/26/2017 9:53 PM PSTGENERAL MEDICINE HI OGRESS NOTE ATTESTATION Date of admission: 12/23/2017 [...] removal, documenting, reviewing records. Lloyd Garcia MD Social Media Community Managerfilm booker Clinical Hospitalist and Medicine Teaching Service Division of [facility] Medicine Pager [phone] Patients Hospital Problem List: Active Hospital Problems 1) *Bacteremia due to Gram-negative bacteria 2) JULY (acute kidney injury) (HCC) 3) Chronic use of opiate drugs therapeutic purposes 4) Hx of small bowel obstruction 5) Gastrostomy tube in place (HCC) 6) Insomnia 7) Moderate protein-calorie malnutrition (HCC) Myriam Holt MD - 12/25/2017 10:08 AM PSTFormatting of this note might be different from e original. [facility] Progress Note 12/25/2017 Admit Date: 12/23/2017 Hospital Day: 2 Attending Physician: Dr. Marbin Espinoza 24 Hour Events/ Subjective: -transferred to [facility] from intensive care -"take out my port [...] 15 oz) (12/23/172) Physical Exam: General: pleasant atk-tpfov-imyuyximy woman lying in bed in no acute [...] oral BID Microbiology: 12/23 blood culture at [facility] gram negative bacilli NGTD 12/23 blood cultures here Imaging: No new imaging Hospital problem list: Patient Active Problem List Diagnosis Date Noted Bacteremia due to Gram-negative bacteria 12/24/2017 Priority: 1 JULY (acute kidney injury) (HCC) 12/24/2017 Priority: 2 Cholangiocarcinoma (HCC) 04/27/2012 Priority: 3 Overview Note: -Diagnosed 2012. Followed by Dr. Ragland at [facility] in [place]. -04/26/2012: R0 Resection. -05/31/2012-09/03/2012 Chemotherapy: Xeloda/gemictabine x4 [...] Maker Primary Surrogate Decision Maker Poncho Oquendo [phone] Patient will be staffed with my attending physician, Dr. Marbin Espinoza, within 24 hours. Myriam Holt MD 12/25/2017 PGY1 physician [id number] Associated attestation - Marbin Espinoza MD - 12/25/2017 7:16 PM PSTI agree with bita carmen resident note. For additional information, please refer to my note from today's date. Marbin Espinoza MD Clinical Hospitalist & Medical Teaching Services [facility] Pager [phone] Smitha Paul MD - 12/24/2017 11:28 AM PSTFormatting of this note might be different fro m the original. MICU Attending Note Admission Date: 12/23/2017 Length of stay: 1 days ID: Aura Upton is a 57 y.o. female with metastatic cholangiocarcinoma (on palliative chemotherapy with gemcitabine/cisplatin q3wk) admitted to the MICU from [place] for suspec ashley septic shock. Present on [...] longer critica lly ill. SMITHA PAUL MD [facility] [address] [place] [address] Brittany Crouch MD - 12/24/2017 6:14 AM PST [facility] MEDICAL ICU - PROGRESS NOTE Hospital Day: 1 | ICU Day: 1 ID/CC: Aura Upton is a 57 y.o. woman w/ metastatic cholangiocarcinoma (on palliative chemotherapy with gemcitabine/cisplatin q3wk) admitted to the MICU from [place] for suspe cted septic shock. Consultants: HIEN, [...] duration of her hospital ization at [facility] and continued to have intermittent fevers and chills while she was there. S he was frustrated with [facility] because they would only send her to [...] gemcitabine/carboplatin q3wk) admitted to the MICU from [place] for suspected s eptic shock. Neurological # [...] Oquendo, Brittany Dean MD Anesthesiology PGY-1 p: [phone] 12/24/2017, 6:14 AM Template created by [employer] [...] (gemcitabine/carboplatin) for metastatic cholangiocarcinoma. Since arrival to [place] E D has received 4L fluid and [...] floor. Dagoberto Iniguez MD Pulmonary/Critical Care Medicine [id number] documented in this en counter Plan of [...] | | POC | | PST | ([facility]) | results section. | + +--------+ [...] | | POC | | PST | ([facility]) | results section. | + +--------+ + + + | CAPILLARY BLOOD | Routin | 12/27/2017 | Sepsis, due to | Results for this | | GLUCOSE (NO CHG), | e | 8:27 AM | unspecified organism | procedure are in the | | POC | | PST | ([facility]) | results section. | + +--------+ [...] | | POC | | PST | ([facility]) | results section. | + +--------+ + + + | CAPILLARY BLOOD | Routin | 12/26/2017 | Sepsis, due to | Results for this | | GLUCOSE (NO CHG), | e | 11:23 AM | unspecified organism | procedure are in the | | POC | | PST | ([facility]) | results section. | + +--------+ + + + | CAPILLARY BLOOD | Routin | 12/26/2017 | Sepsis, due to | Results for this | | GLUCOSE (NO CHG), | e | 10:12 AM | unspecified organism | procedure are in the | | POC | | PST | ([facility]) | results section. | + +--------+ [...] | | POC | | PST | ([facility]) | results section. | + +--------+ + + + | CAPILLARY BLOOD | Routin | 12/25/2017 | Sepsis, due to | Results for this | | GLUCOSE (NO CHG), | e | 1:41 PM | unspecified organism | procedure are in the | | POC | | PST | ([facility]) | results section. | + +--------+ [...] | | POC | | PST | ([facility]) | results section. | + +--------+ + + + | CAPILLARY BLOOD | Routin | 12/25/2017 | Sepsis, due to | Results for this | | GLUCOSE (NO CHG), | e | 12:31 AM | unspecified organism | procedure are in the | | POC | | PST | ([facility]) | results section. | + +--------+ [...] | + +--------+ + + + | Fashion To Figure LAB PORTAL / | Routin | 12/24/2017 [...] | | POC | | PST | ([facility]) | results section. | + +--------+ [...] KANNAN | [address] | [place], [place] | | | [facility] | [address] | [address] | | | TESTS | | | | + + + + + CULTURE, CATH TIP BACTI (12/27/2017 9:55 AM PST) + + + + + + | Component | Value | Ref Range | Performed | Pathologist | | | | | At | Signature | + + + + + + | CULTURE | Klebsiella pneumoniae | | GARY - | | | RESULT | (A) [...] + | [facility] - [facility] - | [address] | [place] [address] | | | [place] | | | | + + + [...] BRUNNER | [address] | [place], [place] | | | [facility] | [address] | [address] | | | TESTS | | | [...] BRUNNER | [address] | [place], [place] | | | [facility] | [address] | [address] | | | TESTS | | | [...] | + + + + + | [facility] | [address] | [place] [address] | | | SERVICES, CORE | NEAL [...] | + + + + + | [facility] | [address] | [place] [address] | | | SERVICES, CORE | NEAL [...] + + + | [facility] | [address] | [place], [place] | | | [facility] | [address] | [address] | | | TESTS | | | [...] MARQUAM | [address] | [place], [place] | | | [facility] | [address] | [address] | | | TESTS | | | [...] - KAN[facility] | [address] | [place], [place] | | | [facility] | [address] | [address] | | | TESTS | | | [...] the MDRD equation recommended by the | [facility] | | National Kidney Disease Education Program. [...] | + + + + + | [facility] | [address] | [place] [address] | | | SAM ALONSO | NEAL [...] 95 | 60 - 99 mg/dL | [facility] - | | | GLUCOSE, | | [...] NAELAM | [address] | [place], [place] | | | [facility] | [address] | [address] | | | TESTS | | | [...] BRUNNER | [address] | [place], [place] | | | [facility] | [facility] | [address] | | | TESTS | | | [...] [facility] | [address] | [place] [address] | | | SERVICES, CORE | [address] [...] [facility] | [address] | [place] [address] | | | SERVICES, CORE | [address] | | | + + + + + CULTURE, BLOOD BACTI & YEAST [facility] (12/25/2017 7:18 AM PST) + + + [...] | + + + + + | [facility] | [address] | [place] [address] | | | SERVICES, CORE | NEAL [...] [facility] | [address] | [place] [address] | | | SERVICES, CORE | [address] [...] | + + + + + | [facility] | [address] [facility] | [place] [address] | | | SERVICES, CORE | NEAL [...] | + + + + + | [facility] | [address] | [place] [address] | | | SERVICES, CORE | NEAL [...] MARQUAM | [address] | [place], [place] | | | DG POINT OF CARE | [address] | [address] | | | TESTS | | | [...] + | [facility] | [address] [facility] [address] | [place], [place] | | | [facility] | [facility] | [address] | | | TESTS | | | [...] | + + + + + | [facility] | [address] [facility] | [place] [address] | | | SERVICES, CORE | [address]ARK [...] [facility] | [address] | [place] [address] | | | SERVICES, CORE | [address] [...] [facility] | [address] | [place] [address] | | | SERVICES, SAM | [address]ARK [...] | + + + + + | [facility] | [address] [facility] | [place] [address] | | | [facility] | [address] | | | + [...] At | + + + | EXAM: HI CHEST 1 VIEW HISTORY: fever COMPARISON: Outside [...] Interface - 12/24/2017 1:05 PM PST EXAM: HI CHEST 1 | | VIEW HISTORY: fever [...] | + + + + + | [facility] | [address] | [place] [address] | | | SERVICES, CORE | NEAL [...] | + + + + + | [facility] | [address] | [place] [address] | | | SERVICES, CORE | PARK [...] | + + + + + | [facility] | [address] [facility] | [place] [address] | | | SERVICES, CORE | NEAL [...] | + + + + + | [facility] | [address] [facility] | [place] [address] | | | SERVICES, SAM | NEAL [...] [facility] | [address] | [place] [address] | | | SERVICES, CORE | NEAL [...] DEPT OF | [address] | [place], [place] | | | CARDIOLOGY | [address] | [address] | | + + + + + [...] BRUNNER | [address] | [place], [place] | | | DG POINT OF CARE | [address] | [address] | | | TESTS | | | [...] | + + + + + | [facility] | [address] | [place] [address] | | | SERVICES, CORE | [address] [...] [facility] | [address] | [place] [address] | | | SERVICES, CORE | [address] [...] [facility] | [address] | [place] [address] | | | SERVICES, CORE | [address] [...] [facility] | [address] | [place] [address] | | | SERVICES, CORE | [address] [...] [facility] | [address] | [place] [address] | | | SERVICES, | [address] [...] [facility] | [address] | [place] [address] | | | SERVICES, | [address] [...] + + | [facility] | [address] [facility] | [place] [address] | | | SERVICES, CORE | NEAL [...] the MDRD equation recommended by the | [facility] | | National Kidney Disease Education Program. [...] | + + + + + | [facility] | [address] | [place] [address] | | | SAM ALONSO | NEAL [...]
--- OUTSIDE RECORDS SUMMARY | ~2019-06-06 | XMS | Encounter Summary ---
Demographics + + + | Address | [address] | | | [place] [address] | + + + | Home Phone [...] + + + | Author | [facility] | + + + | Organization | [facility] | + + + | [...] Team Providers + +------+ + | Care Halftone Operator Name | Role | Phone | [...] + + + + | 06/06/ | Anesthesia | 6A Intra Op 3181 | Epifanio Campoverde, | | | 2015 | Event | [address] | [address] | | | | | [facility] | [address] | | | | | Hospital Admitting | [place], [place] | | | | | Desk Located on the | [address] | | | | | 9th floor | [phone] | | | | | [place], [place] | | | | | | [address] | Aurea Rowell RN | | | | | | [address] | | | | | | [address] | | | | | | [place], [place] | | | | | | [address] | | +--------+ + + + + Anesthesia Record + + + + + | Procedure Name | Responsible | Anesthesia Start | Anesthesia Stop Time | | | Anesthesiologist | Time | | + + + + + | EXPLORATORY | Epifanio Campoverde MD | 06/06/14 0711 | 06/06/14 1115 [...] | + + + | midazolam | 1 mg | + + + | fentaNYL | 450 mcg | + + + | lidocaine 1.5% EPINEPHrine 1:200K | 5 mL | + + + | esmolol | 5 mg | + + + | cefOXitin (MEFOXIN) injection 2 g | 2 g | + + + | lidocaine 2% | 60 mg | + + + | propofol | 400 mg | + + + | rocuronium | 90 mg | + + + | PHENYLEPHrine | 350 mcg | + + + | ePHEDrine | 32.5 mg | + + + | ondansetron | 4 mg | + + + | neostigmine | 5 mg | + + + | glycopyrrolate | 0.8 mg | + + + | bupivacaine 0.5% INF | 2.08 mL | + + + | acetaminophen PO | 1,000 mg | + + + | gabapentin | 600 mg | + + + | lactated ringers IV | 2,000 mL | + + + | NS | 1,000 mL | + + + + + | Name | + + | Insp Miguel Angel | + + | Et Miguel Angel | + + | Insp Sevo | + + | Et Sevo | + + | Insp Iso | + + | Et Iso | + + | EtN2O % | + + | Insp N2O % | + + | O2 Flow Rate (Total Liters) | + + + + | No [...] + + | RETIRE | 04/28/12; 1318; Rufinoon incision; | 04/28/12 1318 by | 12/02/16 1622 by | | D - | anterior; abdomen; 12/02/16 | Liz Hair RN | Discontinued After | | Incisi | (Automatic cleanup per RA | | Discharge | | on | 3006--contact admin for | | | | | questions.); 162 (Automatic | | | | | cleanup per RA 3006--contact | | | | | admin for questions.) | | | +--------+ + + + | RETIRE | 06/06/14; 06/07/14; 1215; No; | 06/06/14 0000 by | 06/07/14 121 by | | D - | placed in [place] by Dr. Edelmira Plaza; | Silvia Bartlett RN | Alexa Carbone RN | | Alexis | Maribel; 16FR | | | | y Cath [...] abdomen; | 06/06/14 0000 by | 12/02/16 162 by | | D - | 12/02/16 [...] filedocumented in this encounter Administered Medications + +--------+ + +------+------+ | Medication Order | MAR | Action | Dose | Rate | Site | | | Action | Date | | | | + +--------+ + +------+------+ | acetaminophen (TYLENOL) tablet | Given | 06/07/19 | 1,000 mg | | | | INTRAPROCEDURE PRN, Starting Adriana | | 15 6:55 | | | | | 06/06/14 at 0655, Until Adriana | | AM PDT | | | | | 06/06/14 at 1616 | | | | | | + +--------+ + +------+------+ +---+---+ | | | +---+---+ + +---------+ +---------+---------+---+ | bupivacaine 0.5% INF | New Bag | 06/07/19 | 5 mL/hr | 5 mL/hr | | | INTRAPROCEDURE CONTINUOUS PRN, | | 15 10:50 | | | | | Starting Adriana 06/06/14 at 1050, | | AM PDT | | | | | Until Adriana 06/06/14 at 1106 | | | | | | + +---------+ +---------+---------+---+ +---+---+ | | | +---+---+ + +-------+ +-----+---+---+ | cefOXitin (MEFOXIN) injection 2 | Given | 06/07/19 | 2 g | | | | g 2 g, intravenous, | | 15 8:00 | | | | | PREPROCEDURE ONCE, 1 dose, | | AM PDT | | | | | Starting Adriana 06/06/14 at 0530, | | | | | | | Until Adriana 06/06/14 at 0800 | | | | | | + +-------+ +-----+---+---+ +---+---+ | | | +---+---+ + +-------+ +-------+---+---+ | ePHEDrine injection | Given | 06/07/19 | 10 mg | | | | intravenous, INTRAPROCEDURE PRN, | | 15 10:46 | | | | | Starting Adriana 06/06/14 at 0752, | | AM PDT | | | | | Until Adriana 06/06/14 at 1106 | | | | | | + +-------+ +-------+---+---+ +-------+ +--------+---+---+ | Given | 06/07/19 | 7.5 mg | | | | | 15 9:52 | | | | | | AM PDT | | | | +-------+ +--------+---+---+ | Given | 06/07/19 | 7.5 mg | | | | | 15 8:07 | | | | | | AM PDT | | | | +-------+ +--------+---+---+ +---+---+ | | | +---+---+ + +-------+ +------+---+---+ | esmolol (BREVIBLOC) injection | Given | 06/07/19 | 5 mg | | | | intravenous, INTRAPROCEDURE PRN, | | 15 8:40 | | | | | Starting Adriana 06/06/14 at 0840, | | AM PDT | | | | | Until Adriana 06/06/14 at 1106 | | | | | | + +-------+ +------+---+---+ +---+---+ | | | +---+---+ + +-------+ +--------+---+---+ | fentaNYL citrate (PF) | Given | 04/23/20 | 50 mcg | | | | (SUBLIMAZE) injection | | 15 10:15 | | | | | INTRAPROCEDURE PRN, Starting Adriana | | AM PDT | | | | | 06/06/14 at 0645, Until Adriana | | | | | | | 06/06/14 at 1106, sedation | | | | | | + +-------+ +--------+---+---+ +-------+ +---------+---+---+ | Given | 06/07/19 | 100 mcg | | | | | 15 8:10 | | | | | | AM PDT | | | | +-------+ +---------+---+---+ | Given | 06/07/19 | 50 mcg | | | | | 15 7:36 | | | | | | AM PDT | | | | +-------+ +---------+---+---+ +---+---+ | | | +---+---+ + +-------+ +--------+---+---+ | gabapentin (NEURONTIN) capsule | Given | 06/07/19 | 600 mg | | | | INTRAPROCEDURE PRN, Starting Adriana | | 15 6:55 | | | | | 06/06/14 at 0655, Until Adriana | | AM PDT | | | | | 06/06/14 at 1616 | | | | | | + +-------+ +--------+---+---+ +---+---+ | | | +---+---+ + +-------+ +--------+---+---+ | glycopyrrolate (PADMA) | Given | 06/07/19 | 0.8 mg | | | | injection INTRAPROCEDURE PRN, | | 15 10:51 | | | | | Starting [facility] 06/06/14 at 1051, | | AM PDT | | | | | Until [facility] 06/06/14 at 1106 | | | | | | + [...] | +---+---+ + +-------+ +-------+---+---+ | lidocaine PF (XYLOCAINE MPF) 20 | Given | 06/07/19 | 60 mg | | | | mg/mL (2 %) injection | | 15 7:36 | | | | | INTRAPROCEDURE PRN, Starting Adriana | | AM PDT | | | | | 06/06/14 at 0736, Until Adriana | | | | | | | 06/06/14 at 1106 | | | | | | + +-------+ +-------+---+---+ +---+---+ | | | +---+---+ + +-------+ +------+---+---+ | lidocaine-EPINEPHrine | Given | 06/07/19 | 2 mL | | | | (XYLOCAINE-MPF WITH EPINEPHRINE) | | 15 7:10 | | | | | 1.5 %-1:200,000 injection | | AM PDT | | | | | INTRAPROCEDURE PRN, Starting Adriana | | | | | | | 06/06/14 at 0705, Until Adriana | | | | | | | 06/06/14 at 1106 | | | | | | + +-------+ +------+---+---+ +-------+ +------+---+---+ | Given | 06/07/19 | 3 mL | | | | | 15 7:05 | | | | | | AM PDT | | | | +-------+ +------+---+---+ +---+---+ | | | +---+---+ + +-------+ +------+---+---+ | midazolam (VERSED) injection | Given | 06/07/19 | 1 mg | | | | INTRAPROCEDURE PRN, Starting Adriana | | 15 6:45 | | | | | 06/06/14 at 0645, Until Adriana | | AM PDT | | | | | 06/06/14 at 1106, sedation | | | | | | + +-------+ +------+---+---+ +---+---+ | | | +---+---+ + +---------+ +---+---+---+ | NaCl 0.9 % IV INTRAPROCEDURE | New Bag | 06/07/19 | | | | | CONTINUOUS PRN, Starting Adriana | | 15 7:50 | | | | | 06/06/14 at 0750, Until Adriana | | AM PDT | | | | | 06/06/14 at 1106 | | | | | | + +---------+ +---+---+---+ +---+---+ | | | +---+---+ + +-------+ +------+---+---+ | neostigmine (PROSTIGMIN) | Given | 06/07/19 | 5 mg | | | | injection intravenous, | | 15 10:51 | | | | | INTRAPROCEDURE PRN, Starting Adriana | | AM PDT | | | | | 06/06/14 at 1051, Until Adriana | | | | | | | 06/06/14 at 1106 | | | | | | + +-------+ +------+---+---+ +---+---+ | | | +---+---+ + +-------+ +------+---+---+ | ondansetron (ZOFRAN) injection | Given | 06/07/19 | 4 mg | | | | INTRAPROCEDURE PRN, Starting Adriana | | 15 10:35 | | | | | 06/06/14 at 1035, Until Adriana | | AM PDT | | | | | 06/06/14 at 1106 | | | | | | + +-------+ +------+---+---+ +---+---+ | | | +---+---+ + +-------+ +---------+---+---+ | PHENYLEPHrine 100mcg/mL IV | Given | 06/07/19 | 100 mcg | | | | syringe INTRAPROCEDURE PRN, | | 15 8:10 | | | | | Starting Adriana 06/06/14 at 0750, | | AM PDT | | | | | Until Adriana 06/06/14 at 1106 | | | | | | + +-------+ +---------+---+---+ +-------+ +---------+---+---+ | Given | 06/07/19 | 150 mcg | | | | | 15 7:58 | | | | | | AM PDT | | | | +-------+ +---------+---+---+ | Given | 06/07/19 | 100 mcg | | | | | 15 7:50 | | | | | | AM PDT | | | | +-------+ +---------+---+---+ +---+---+ | | | +---+---+ + +-------+ +--------+---+---+ | propofol INTRAPROCEDURE PRN, | Given | 06/07/19 | 200 mg | | | | Starting Adriana 06/06/14 at 0736, | | 15 7:40 | | | | | Until Adriana 06/06/14 at 1106 | | AM PDT | | | | + +-------+ +--------+---+---+ +-------+ +--------+---+---+ | Given | 06/07/19 | 200 mg | | | | | 15 7:36 | | | | | | AM PDT | | | | +-------+ +--------+---+---+ +---+---+ | | | +---+---+ + +-------+ +-------+---+---+ | rocuronium (ZEMURON) injection | Given | 06/07/19 | 20 mg | | | | INTRAPROCEDURE PRN, Starting Adriana | | 15 9:32 | | | | | 06/06/14 at 0737, Until Adriana | | AM PDT | | | | | 06/06/14 at 1106, Neuromuscular | | | | | | | block | | | | | | + +-------+ +-------+---+---+ +-------+ +-------+---+---+ | Given | 06/07/19 | 70 mg | | | | | 15 7:37 | | | | | | AM PDT | | | | +-------+ +-------+---+---+ +---+---+ | | | +---+---+ documented in this encounter"
--- OUTSIDE RECORDS SUMMARY | ~2019-06-06 | XMS | Encounter Summary ---
Demographics + + + | Address | [address] | | | [place] [address] | + + + | Home Phone [...] Author | [facility] | | | and Eduardo[place] | + + + | Organization | [facility] | | | and Eduardo[place] | + + + | Address | Unknown | + + + | Phone | Unavailable | + + + Support + + + + + | Name | Relationship | Address | Phone | + + + + + | Poncho Oquendo | ECON | [address] | | | | | [place] | | | | | [address] | | + + + + + | Marta Upton | ECON | [place] | | | | | [address] | | + + + + + Care Team Providers + +------+ + | Care Bus Info Consultant Name | Role | Phone | [...] 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, | W Joy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 | MD [address] | [place], | | | | | (HCC) | [address] | [place] [address] | | | | | Procedures | [place], | Phone: | | | | | [place] | [place] [address] | [phone] | | | | | DIPHENHYDRAM | Phone: | Fax: | | | | | [facility] | [phone] | [phone] | | | | | INJECTIO, [address] | Fax: | | | | | | [place] | [phone] | | | | | | [place] [...] + + | 05/20/ | Hospital | [facility] | Vladimir Robles, | Gallbladder cancer, | | 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 | MED CTR CHEMO | MD [address] | carcinoma (HCC) | | | | INFUSION [address] [place], | | | | | [place], | [place] [address] | | | | | [place] [address] | [phone] | | | | | [phone] | | | +--------+ + + + [...] 1:23 PM PDTReports nausea resolved discharged in stab le condition to follow up in [place] as scheduled. documented in this encounter Plan of Treatment +--------+---------+ + + + | Date | Type | Specialty | Care Team | Description | +--------+---------+ + + + | 09/17/ | Office | Urology | Pedro Green, | | | 2019 | Visit | | DO [address]ish[address] | | | | | | [place] [address] | | | | | | [phone] | | | | | | | [...] | Intravenous, ONCE, 05/20/17 at | | AM PDT | | [...] PDT | | | | | Starting 05/20/17 at 1236, For | | | | [...]
--- OUTSIDE RECORDS SUMMARY | ~2019-06-06 | XMS | Encounter Summary ---
Demographics + + + | Address | [address] | | | [place] [address] | + + + | Home Phone [...] + + | Author | [facility] | | | and [place]ardo[place] | + + + | Organization | [facility] | | | and Eduardo[place] | + + + | Address | Unknown | + + + | Phone | Unavailable | + + + Support + + + + + | Name | Relationship | Address | Phone | + + + + + | Poncho Oquendo | ECON | [address] | | | | | [place] [facility], [place] | | | | | [address] | | + + + + + | Marta Upton | ECON | [place] | | | | | [address] | | + + + + + Care Team Providers + +------+ + | Care Professor Of Chemical Engineering Name | Role | Phone | + [...] + + | 10/18/ | Telephone | [facility] | Pedro Green, | Other (Canceling | | 2019 | | UROLOGY [address] | DO [address] | Appointment) | | | | [address] | [place] [address] | | | | | [place], [place] | [phone] | | | | | [address] | | | | | | [phone] | | | +--------+ + + + [...] [address] | | | | | | [place] [address] | | | | | | [phone] | | | | | | | | +--------+---------+ + + + documented as of this encounter Visit Diagnoses Not on filedocumented in this encounter"
--- OUTSIDE RECORDS SUMMARY | ~2019-06-06 | XMS | Encounter Summary ---
Demographics + + + | Address | [address] | | | [place] [address] | + + + | Home Phone [...] Author | [facility] | | | and Eduardo[place] | + + + | Organization | [facility] | | | and Eduardo[place] | + + + | Address | Unknown | + + + | Phone | Unavailable | + + + Support + + + + + | Name | Relationship | Address | Phone | + + + + + | Poncho Oquendo | ECON | [address] | | | | | [place] | | | | | [address] | | + + + + + | Marta Upton | ECON | [place] | | | | | [address] | | + + + + + Care Team Providers + +------+ + | Care Business Operations Coordinator Name | Role | Phone | [...] | | | [facility] CLIN[facility] [address] | [facility] | | | | | [address] [facility] | [place] [address] | | | | | [place] [address] | [phone] | | | | | [phone] | | | +--------+--------+ + + + [...] [address] | | | | | | [place] [address] | | | | | | [phone] | | | | | | | | +--------+---------+ + + + documented as of this encounter Visit Diagnoses + + | Diagnosis | + + | 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
--- OUTSIDE RECORDS SUMMARY | ~2019-06-06 | XMS | Encounter Summary ---
Demographics + + + | Address | [address] | | | [place] [address] | + + + | Home Phone [...] + +------+ + | Care Professor Of Radiology Name | Role | Phone | + +------+ + | Prudencio Isaac MD | PCP | | + +------+ + Encounter Details +--------+ + + + + | Date | Type | Department | Care Team | Description | +--------+ + + + + | 04/24/ | Telephone | [facility] | Tai Stanton, | | | 2012 | | Center at [facility] [address] | [address] | | | | | [address] [facility] | [facility] | | | | | for [facility] and | [place], [place] | | | | | [facility], [place] [address] | [address] | | | | | [place], [place] | [phone] | | | | | [address] | | | | | | [phone] | | | +--------+ + + + [...]
--- OUTSIDE RECORDS SUMMARY | ~2019-06-06 | XMS | Encounter Summary ---
Demographics + + + | Address | [address] | | | [place] [address] | + + + | Home Phone [...] + | Author | [facility] | | | and Eduardoana | + + + | Organization | [facility] | | | and Eduardo[place] | + + + | Address | Unknown | + + + | Phone | Unavailable | + + + Support + + + + + | Name | Relationship | Address | Phone | + + + + + | Poncho Oquendo | ECON | [address] | | | | | [facility] [place] | | | | | [address] | | + + + + + | Marta Upton | ECON | [place], [place] | | | | | [address] | | + + + + + Care Team Providers + +------+ + | Care Policy Issue Clerk Name | Role | Phone | [...] | PET CT Skull | [place], | [address] | | | | | [place] | [place] [address] | Phone: | | | | | Thigh | | [phone] | | | | | | | Fax: | | | | | | | [phone] | +--------+--------+ + + + + Reason [...] | | Procedures | [address] | [place], [place] | | | | | PET CT Skull | [place], | [address] | | | | | [place] To [place] | [place] [address] | Phone: | | | | | Thigh | | [phone] | | | | | | | Fax: | | | | | | | [phone] | +--------+--------+ + + + + Encounter Details +--------+ + + + + | Date | Type | Department | Care Team | Description | +--------+ + + + + | 02/15/ | Hospital | [facility] | Reinaldo, | 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 | Epifanio Soler MD [address] | passages ([facility]) | | | | MEDICINE [address] | [address] | | | | | [address] | [place] [address] | | | | | [place], [place] | [phone] | | | | | [address] | | | | | | [phone] | | | +--------+ + + + [...] [address] | | | | | | [place] [address] | | | | | | [phone] | | | | | | | [...] | | | Signed by: Maycol Urias, [employer] Sign Date/Time: 02/15/2019 | | | 1:37 [...] Testing | 65 - 99 mg/dL | [facility] | | | POC | performed at [facility];8 | | LABORATORY | | | | [facility];[place], [place] | | | | | | [address] | | | | + + + + + + + + | Specimen | + + | | + + + + + + + | Performing | Address | City/State/Zipcode | Phone Number | | Organization | | | | + + + + + | [facility] | [address] | [place] [address] | [phone] | + + + + + documented [...] millicur | | | | Intravenous, ONCE, [facility] 02/15/19 at | | PM PST | ies | | | | 1315, For 1 dose | | | | | | + +--------+ + +------+------+ +---+---+ | | | +---+---+ documented in this encounter"
--- OUTSIDE RECORDS SUMMARY | ~2019-06-06 | XMS | Encounter Summary ---
Demographics + + + | Address | [address] | | | [place] [address] | + + + | Home Phone [...] + | Author | [facility] | | | and Eduardoana | + + + | Organization | [facility] | | | and Eduardoana | + + + | Address | Unknown | + + + | Phone | Unavailable | + + + Support + + + + + | Name | Relationship | Address | Phone | + + + + + | Poncho Oquendo | ECON | [address] | | | | | [place] | | | | | [address] | | + + + + + | Marta Upton | ECON | [place] | | | | | [address] | | + + + + + Care Team Providers + +------+ + | Care Manager Material Name | Role | Phone | + +------+ + | Valeriy Carmona DO | PCP | | + +------+ + Encounter Details +--------+ + + + + | Date | Type | Department | Care Team | Description | +--------+ + + + + | 08/27/ | Hospital | [facility] | Valeriy Carmona, | Breast nodule | | 2016 | Encounter | MED CTR ULTRASOUND | DO [address] | | | | | [address] | [place] [address] | | | | | [place] | [phone] | | | | | [address] | | | | | | [phone] | Vee Rebolledo | | | | | | A, Technologist | | | | | | [place] | | | | | | [address] | | +--------+ + + + + [...] [address] | | | | | | [place] [address] | | | | | | [phone] | | | | | | | [...]
--- OUTSIDE RECORDS SUMMARY | ~2019-06-06 | XMS | Encounter Summary ---
Demographics + + + | Address | [address] | | | [place] [address] | + + + | Home Phone [...] Providers + +------+ + | Care Residential Team Leader Name | Role | Phone | + [...] Pharmacy | | | | | | [address] | | | | | | [place], [place] | | | | | | [address] | | | | | | [phone] | | | +--------+ + + + [...]
--- OUTSIDE RECORDS SUMMARY | ~2019-06-06 | XMS | Encounter Summary ---
Demographics + + + | Address | [address] | | | [place] [address] | + + + | Home Phone [...] + | Author | [facility] | | | and Eduardoana | + + + | Organization | [facility] | | | and Eduardoana | + + + | Address | Unknown | + + + | Phone | Unavailable | + + + Support + + + + + | Name | Relationship | Address | Phone | + + + + + | Poncho Oquendo | ECON | [address] | | | | | [facility] [place] | | | | | [address] | | + + + + + | Marta Upton | ECON | [place] | | | | | [address] | | + + + + + Care Team Providers + +------+ + | Care Braille Translator Name | Role | Phone | + [...] + + | 04/19/ | Telephone | [facility] | Pedro Green, | Other (Labs for | | 2019 | | UROLOGY [address] | DO [address] | Procedure) | | | | [address] | [place] [address] | | | | | [place], [place] | [phone] | | | | | [address] | | | | | | [phone] | | | +--------+ + + + [...] | | | | | [place] [address] | | | | | | [phone] | | | | | | | | +--------+---------+ + + + documented as of this encounter Visit Diagnoses Not on filedocumented in this encounter"
--- OUTSIDE RECORDS SUMMARY | ~2019-06-06 | XMS | Encounter Summary ---
Demographics + + + | Address | [address] | | | [place] [address] | + + + | Home Phone [...] + | Author | [facility] | | | and Eduardoana | + + + | Organization | [facility] | | | and Eduardoana | + + + | Address | Unknown | + + + | Phone | Unavailable | + + + Support + + + + + | Name | Relationship | Address | Phone | + + + + + | Poncho Oquendo | ECON | [address] | | | | | [facility] [address] [address], [place] | | | | | [address] | | + + + + + | Marta Upton | ECON | [place], [place] | | | | | [address] | | + + + + + Care Team Providers + +------+ + | Care Section Leader And Machine Setter Name | Role | Phone | + +------+ + PCP | Unavailable | + +------+ + Encounter Details +--------+ + + + + | Date | Type | Department | Care Team | Description | +--------+ + + + + | 09/01/ | Hospital | [facility] | | | | 2012 - | Encounter | MED CTR XRAY [address] | | | | | | [address] | | | | 09/13/ | | [place] [address] | | | | 2012 | | [phone] | | | +--------+ + + + [...] [address] | | | | | | [place] [address] | | | | | | [phone] | | | | | | | [...] + | [facility] | [address] | [place], [place] | [phone] | | [facility] | | [address] | | | - LABORATORY | | | | + + + + + | [facility] | [address] | [place], [place] | | | [facility] | | [address], [facility] | | | - LABORATORY | | [...] | | | | [address], [place], [place] | | | | | | [address] CLIA: | | | | | | [id number] | | | | + + + + + + + + | Specimen | + + | | + + + + + + + | Performing | Address | City/State/Zipcode | Phone Number | | Organization | | | | + + + + + | [facility] | [address] | [place] | [phone] | | [facility] | | [address] | | | - LABORATORY | | | | + + + + + | [facility] | [address] | [place], [place] | | | [facility] | | [address] | | | - LABORATORY [...] | | | | mg/dL | [facility] | | | | | | MEDICAL [...] + | [facility] | [address] | [place], [place] | [phone] | | [facility] | | [address] | | | - LABORATORY | | | | + + + + + | [facility] | [address] | [place] | | | [facility] | | [id number] [place] [address] | | | - LABORATORY | | [...] [address] | [place] | [phone] | | [facility] | | [address] | | | - LABORATORY | | | | + + + + + | [facility] | [address] | [place] | | | [facility] | | [address] | | | - LABORATORY [...] + | [facility] | [address] | [place] | [phone] | | [facility] | | [address] | | | - LABORATORY | | | | + + + + + | [facility] | [address] | [place] | | | [facility] | | [address] | | | - LABORATORY [...] | | | | [address], [place], [place] | | | | | | [address] CLIA: | | | | | | [id number] | | | | + + + + + + + + | Specimen | + + | | + + + + + + + | Performing | Address | City/State/Zipcode | Phone Number | | Organization | | | | + + + + + | [facility] | [address] | [place], [place] | [phone] | | [facility] | | [address] | | | - LABORATORY | | | | + + + + + | [facility] | [address] | [place] | | | [facility] | | [address] | | | - LABORATORY [...] + | [facility] | [address] | [place], [place] | [phone] | | [facility] | | [address] | | | - LABORATORY | | | | + + + + + | [facility] | [address] | [place], [place] | | | [facility] | | [address], [facility] | | | - LABORATORY | | [...] + | [facility] | [address] | [place] | [phone] | | [facility] | | [address] | | | - LABORATORY | | | | + + + + + | [facility] | [address] | [place] | | | [facility] | | [address] | | | - LABORATORY | | | | + + + + + documented in this encounter Visit Diagnoses Not on filedocumented in this encounter"
--- OUTSIDE RECORDS SUMMARY | ~2019-06-06 | XMS | Encounter Summary ---
Demographics + + + | Address | [address] | | | [place] [address] | + + + | Home Phone [...] Team Providers + +------+ + | Care Lot Associate Name | Role | Phone | + +------+ + | Tomasa Wagner | PCP | | + +------+ + Encounter Details +--------+ + + + + | Date | Type | Department | Care Team | Description | +--------+ + + + + | 08/22/ | Telephone | Dig[facility]ive Health | Tai Stanton, | | | 2012 | | Center at [facility] [address] | [address] | | | | | [address] [facility] | [facility] | | | | | for [facility] and | [place], [place] | | | | | [facility], [place] [address] | [address] | | | | | [place], [place] | [phone] | | | | | [address] | | | | | | [phone] | | | +--------+ + + + [...]
--- OUTSIDE RECORDS SUMMARY | ~2019-06-06 | XMS | Encounter Summary ---
Demographics + + + | Address | [address] | | | [place] [address] | + + + | Home Phone [...] | [facility] | | | and Eduardoana | + + + | Organization | [facility] | | | and Eduardoana | + + + | Address | Unknown | + + + | Phone | Unavailable | + + + Support + + + + + | Name | Relationship | Address | Phone | + + + + + | Poncho Oquendo | ECON | [address] | | | | | [facility] [place] | | | | | [address] | | + + + + + | Marta Upton | ECON | [place] | | | | | [address] | | + + + + + Care Team Providers + +------+ + | Care Casting And Curing Operator Name | Role | Phone | [...] + + | 04/26/ | Surgery | [facility] | Pedro Green, | CYSTOSCOPY URETERAL | | 2019 | | REGIONAL SURGERY | DO [address] | STENT | | | | CENTER INTRA OP | [place] [address] | REMOVAL/REPLACEMENT | | | | [address] | [phone] | | | | | [place], [place] | | | | | | [address] | | | | | | [phone] | | | +--------+---------+ + + + [...] lasts more than a day, a fever [id number] (38 C), or trouble urinating. Date Last Reviewed: 02/15/201619994675-2402 [employer]. [address] [place] [address], [place] [address]. All righ ts reserved. This information is [...] out of the urethra Date Last Reviewed: 02/15/201619999949-4962 [employer]. [address] [place] [address]. All righ ts reserved. This information is [...] 2019 | Visit | | DO [address] [facility] | | | | | | [place] [address] | | | | | | [phone] | | | | | | | [...]
--- OUTSIDE RECORDS SUMMARY | ~2019-06-06 | XMS | Encounter Summary ---
Demographics + + + | Address | [address] | | | [place] [address] | + + + | Home Phone [...] | Author | [facility] | | | and Eduardoana | + + + | Organization | [facility] | | | and Eduardoana | + + + | Address | Unknown | + + + | Phone | Unavailable | + + + Support + + + + + | Name | Relationship | Address | Phone | + + + + + | Poncho Oquendo | ECON | [address] | | | | | [facility] [place] | | | | | [address] | | + + + + + | Marta Upton | ECON | [place], [place] | | | | | [address] | | + + + + + Care Team Providers + +------+ + | Care Metal Cans Supervisor Name | Role | Phone | [...] [facility] | | | | | [place], [place] | [place] [address] | | | | | [address] | [phone] | | | | | [phone] | | | +--------+ + + + [...] | | | | | [place] [address] | | | | | | [phone] | | | | | | | | +--------+---------+ + + + documented as of this encounter Visit Diagnoses Not on filedocumented in this encounter
--- OUTSIDE RECORDS SUMMARY | ~2019-06-06 | XMS | Encounter Summary ---
Demographics + + + | Address | [address] | | | [place] [address] | + + + | Home Phone [...] Team Providers + +------+ + | Care Heating And Air Conditioning Mechanic Name | Role | Phone | [...] | neoplasm of | [address]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 | [address] | [facility] | | | | | (HCC) | [address] | [address] | | | | | Procedures | [place], [place] | [place], [place] | | | | | CONSULT TO | [address] | [address] Phone: | | | | | HEMATOLOGY / | Phone: | [phone] | | | | | ONCOLOGY | [phone] | Fax: | | | | | PRACTICE | Fax: | [phone] | | | | | | [phone] | | +--------+--------+ + + + + Encounter Details +--------+---------+ + + + | Date | Type | Department | Care Team | Description | +--------+---------+ + + + | 06/26/ | Office | [facility] | Elva Grey, | 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 | Clinics at | [address] | (HCC) (Primary Dx) | | | | [facility] | Road [address] | | | | | for [facility] and | [place] [address] | | | | | Healing [address] | [phone] | | | | | [address] [place], | | | | | | [place] [address] | | | | | | [phone] | | | +--------+---------+ + + + [...] negative for malignancy - Adjuvant chemotherapy recommended: Moxahala/Cap for 4 cycles then restaging - 09/13/12-10/23/12 Chemoradiation with Cape - Treated locally by Dr Najera - CT on 03/18/2014 which noted a left ovarian cyst measuring 5.5 x 5.8 x 2.6 cm - Referred to Dr Henderson in Floor Care Technician Onc - 06/07/14 To [place] for Exploratory [...] excised lymph nodes from the gallbladder bed ([id number], slides E3-4). Additionally, immunohistochemical staining on the left ovarian tumor shows the cells to be positive for CDX-2, consistent with gastrointestinal origin. Plan: 1. Gallbladder cancer Primary site: Gallbladder Staging method: AJCC 7th Edition Clinical: Stage IIIB (T2, N1, M0) - Signed by Elav Grey MD on 05/17/2012 Pathologic: Stage IIIB [...] of benefit - recommend 1st line chemotherapy, Moxahala/Cisplatin would be standard, no clinical trials open at [facility] for 1st line therapy, and would not [...]
--- OUTSIDE RECORDS SUMMARY | ~2019-06-06 | XMS | Encounter Summary ---
Demographics + + + | Address | [address] | | | [place] [address] | + + + | Home Phone [...] Team Providers + +------+ + | Care Radio Board Operator Name | Role | Phone | + +------+ + | Tomasa Wagner | PCP | | + +------+ + Encounter Details +--------+ + + + + | Date | Type | Department | Care Team | Description | +--------+ + + + + | 06/20/ | MyChart | [facility] | Miguel Seymour, | RE: Do I need to | | 2014 | Encounter | [facility] | [address] | continue the Lovenox | | | | Alexis [address] | injections? | | | | [address] | [place], [place] | | | | | Alexis, [facility] floor | [address] | | | | | [place], [place] | [phone] | | | | | [address] | | | | | | [phone] | | | +--------+ + + + [...]
--- OUTSIDE RECORDS SUMMARY | ~2019-06-06 | XMS | Encounter Summary ---
Demographics + + + | Address | [address] | | | [place] [address] | + + + | Home Phone [...] + | Author | [facility] | | | and Eduardoana | + + + | Organization | [facility] | | | and Eduardoana | + + + | Address | Unknown | + + + | Phone | Unavailable | + + + Support + + + + + | Name | Relationship | Address | Phone | + + + + + | Poncho Oquendo | ECON | [address] | | | | | [place] | | | | | [address] | | + + + + + | Marta Upton | ECON | [place] | | | | | [address] | | + + + + + [...] 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, | [address]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 | MD [address] | [place], | | | | | (HCC) | [address] | [place] [address] | | | | | Procedures | [place], | Phone: | | | | | [place] | [place] [address] | [phone] | | | | | O[place]AN[place]RON | Phone: | Fax: | | | | | HCL | [phone] | [phone] | | | | | INJECTION, 1 | Fax: | | | | | | MG [place] | [phone] | | | | | | FOSAPREPITAN | | | | | | | T INJECTION, | | | | | | | 1 MG [place] | | | | | | | LORAZEPAM | | | | | | | INJECTION, 2 | | | | | | | MG [place] | | | | | | | CISPLATIN 10 | | | | | | | MG | | | | | | | INJECTION | | | | | | | [place] | | | | | | | GEMCITABINE | | | | | | | HCL | | | | | | | INJECTION, | | | | | | | 200 MG [place] | | | | | | | DIPHENHYDRAM | | | | | | | INE HCL | | | | | | | INJECTIO, 50 | | | | | | | MG [place] | | | | | | | METHYLPREDNI | | | | | | | SOLONE | | | | | | | INJECTION, | | | | | | | 125 MG [place] | | | | | | | DEXAMETHASON | | | | | | | E SODIUM | | | | | | | PHOS, 1 MG | | | | | | | VT NORMAL | | | | | | | SALINE | | | | | | | SOLUTION | | | | | | | INFUS, 500 | | | | | | | ML [place] | | | | | | | NORMAL | | | | | | | SALINE | | | | | | | SOLUTION | | | | | | | INFUS, 250 | | | | | | | ML [place] | | | | | | | STERILE | | | | | | | WATER/SALINE | | | | | | | , 10 ML [place] | | | | | | | INJ HEPARIN | | | | | | | SODIUM PER | | | | | | | 1000U [place] | | | | | | | CHEMOTHER, | | | | | | | IV INFUSION, | | | | | | | 1 HR VT | | | | | | | CHEMOTHER, | | | | | | | IV PUSH,EA | | | | | | | ADD DRUG VT | | | | | | | CHEMOTHER, | | | | | | | IV INFUSION, | | | | | | | EA HR VT | | | | | | | CHEMOTHER,NO | | | | | | | N-HORMONE | | | | | | | ANTI-NEOPL, | | | | | | | SUB-Q/IM [place] | | | | | | [...] + + | 10/31/ | Hospital | [facility] | Reinaldo, | Gallbladder cancer, | | 2015 | Encounter | MED CTR CHEMO | Epifanio Soler MD [address] | carcinoma (HCC) | | | | INFUSION [address] | [address] [place] | (Primary Dx) | | | | [address] [place], | [place] [address] | | | | | [place] [address] | [phone] | | | | | [phone] | | | +--------+ + + + [...] [address] | | | | | | [place] [address] | | | | | | [phone] | | | | | | | [...] with autodiff. | [facility] | | | [facility] | | | [facility] | | | - LABORATORY | + + + + + + + + | Performing | Address | City/State/Zipcode | Phone Number | | Organization | | | | + + + + + | [facility] | [address] | [place] | [phone] | | [facility] | | [address] | | | - LABORATORY | | [...] | | | | | | [place] [address] | | | | + + + + + + + + | Specimen | + + | Blood specimen | | (specimen) | + + + + + + + | Performing | Address | City/State/Zipcode | Phone Number | | Organization | | | | + + + + + | [facility] | [address] | [place] [address] | [phone] | + + + + + [place] [...] [address] | [place] | [phone] | | [facility] | | [address] | | | - LABORATORY | | [...] + | [facility] | [address] | [place] | [phone] | | [facility] | | [address] | | | - LABORATORY | | [...] | | | | mmol/L | [facility] | | | | | [...] | mL/min/1.73m2 | YOMAIRA | | | BELARUSIAN | RATE,ESTIMATED | | MEDICAL | | | | mL/min/1.46l2Oewn than | | CENTER - | | [...] [address] | [place] | [phone] | | [facility] | | [address] | | | - LABORATORY | | [...] [address] | [place] | [phone] | | [facility] | | [address] | | | - LABORATORY | | [...] | | | | | Intracatheter, ONCE, [facility] 10/31/14 | | AM PDT | | [...] | | | over 1 Hours, ONCE, [facility] 10/31/14 | | | | | | [...] | | | over 30 Minutes, ONCE, [facility] | | | | | | [...] | | | | | Care, Starting [facility] 10/31/14 at | | | | | [...] | | | | | Minutes, ONCE, [facility] 10/31/14 at | | | | | | | 1015, For 1 dose, Administer | | | | | | | prior to chemotherapy., | | | | | | + +---------+ +---+-------+---+ +---+---+ | | | +---+---+ documented in this encounter"
--- OUTSIDE RECORDS SUMMARY | ~2019-06-06 | XMS | Encounter Summary ---
Demographics + + + | Address | [address] | | | [place] [address] | + + + | Home Phone [...] Team Providers + +------+ + | Care Helmet Hat Puncher Name | Role | Phone | + [...] | 2014 | Encounter | [facility] | [address] | | | | | Alexis [address] | [address] | | | | | [address] [place] [address] | [place], [place] | | | | | Alexis, [facility] floor | [address] | | | | | [place], [place] | [phone] | | | | | [address] | | | | | | [phone] | | | +--------+ + + + [...]
--- OUTSIDE RECORDS SUMMARY | ~2019-06-06 | XMS | Encounter Summary ---
Demographics + + + | Address | [address] | | | [place] [address] | + + + | Home Phone [...] Team Providers + +------+ + | Care Buy Boat Operator Name | Role | Phone | [...] Closed | | Hematology & | | Romy, | Xxhem | | | | Oncology | | MD Tai | Faculty [facility] | | | | | | [address] | [address] | | | | | | [address] | Ave | | | | | | Rd | Mailcode: | | | | | | [place], [place] | [facility] | | | | | | [address] | for Health | | | | | | Phone: | and Healing, | | | | | | [phone] | Building 1, | | | | | | Fax: | 7th Floor | | | | | | [phone] | [place], [place] | | | | | | | [address] | | | | | | | Phone: | | | | | | | [phone] | | | | | | | Fax: | | | | | | | [phone] | +--------+--------+ + + + + Encounter Details +--------+---------+ + + + | Date | Type | Department | Care Team | Description | +--------+---------+ + + + | 05/17/ | Office | Hematology/Medical | Elva Grey, | Gallbladder cancer | | 2013 | Visit | Oncology at [facility] | [address] | (HCC) (Primary Dx); | | | | [address] | [address] | Post-operative pain | | | | Mailcode: CH7M | [place] [address] | | | | | [facility] | [phone] | | | | | and Healing, | | | | | | Building 1, 7th | | | | | | Floor [place], [place] | | | | | | [address] | | | | | | [phone] | | | +--------+---------+ + + + [...] History Narrative Pt has SO. Lives in [facility]. 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 [...] and RT based on nomograms developed at [facility] based on SEER database. As there is no standard adjuvant regimen for this disease we have followed the regimen receloreto jarretty studied in the completed S0809 trial. This is Pierce/Cap for 4 cycles, then restaging and chemoradiation with Cape as below: Capecitabine 750mg/m2 BID days 1-14 Gemcitabine 1000mg/m2 IV days 1,8 Every 21 days for 4 cycles Followed by: Capecitabine 665mg/m2 BID concurrent with RT She is currently only 3 weeks out from surgery and not yet ready for chemotherapy. She is from the [facility] and would like to get therapy closer to home. She states that she l oves closest to the [facility] and would like a referral [...]
--- OUTSIDE RECORDS SUMMARY | ~2019-06-06 | XMS | Encounter Summary ---
Demographics + + + | Address | [address] | | | [place] [address] | + + + | Home Phone [...] | | 2018 | Records | [address] [facility] | [phone] | | | | | [address] | | | | | | [place], [place] | | | | | | [address] | | | +--------+ + + + [...]
--- OUTSIDE RECORDS SUMMARY | ~2019-06-06 | XMS | Encounter Summary ---
Demographics + + + | Address | [address] | | | [place] [address] | + + + | Home Phone [...] Team Providers + +------+ + | Care Stadium Manager Name | Role | Phone | [...] | | | Reconstructive | Velma [place], | | | | | Services at [facility] | [place] [address] | | | | | [address] | [phone] | | | | | Mailcode: [address] | | | | | | [facility] | | | | | | and Healing, | | | | | | Building | | | | | | [place], [place] | | | | | | [address] | | | | | | [phone] | | | +--------+ + + + [...]
--- OUTSIDE RECORDS SUMMARY | ~2019-06-06 | XMS | Encounter Summary ---
Demographics + + + | Address | [address] | | | [place] [address] | + + + | Home Phone [...] Team Providers + +------+ + | Care Pharmacist Name | Role | Phone | + [...] | | | Reconstructive | Velma Whitfield [place], | | | | | Services at [facility] | [place] [address] | | | | | [address] | [phone] | | | | | Mailcode: [address] | | | | | | [facility] | | | | | | and Healing, | | | | | | Building | | | | | | [place], [place] | | | | | | [address] | | | | | | [phone] | | | +--------+ + + + [...]
--- OUTSIDE RECORDS SUMMARY | ~2019-06-06 | XMS | Encounter Summary ---
Demographics + + + | Address | [address] | | | [place] [address] | + + + | Home Phone [...] + | Author | [facility] | | | and Eduardoana | + + + | Organization | [facility] | | | and Eduardoana | + + + | Address | Unknown | + + + | Phone | Unavailable | + + + Support + + + + + | Name | Relationship | Address | Phone | + + + + + | Poncho Oquendo | ECON | [address] | | | | | [place] | | | | | [address] | | + + + + + | Marta Upton | ECON | [place] | | | | | [address] | | + + + + + Care Team Providers + +------+ + | Care Music Manager Name | Role | Phone | [...] | | | ONCOLOGY CLINIC [address] | [facility] | | | | | [address] [facility] | [place] [address] | | | | | [place] [address] | [phone] | | | | | [phone] | | | +--------+ + + + [...] | | | | | [place] [address] | | | | | | [phone] | | | | | | | | +--------+---------+ + + + documented as of this encounter Visit Diagnoses Not on filedocumented in this encounter"
--- OUTSIDE RECORDS SUMMARY | ~2019-06-06 | XMS | Encounter Summary ---
Demographics + + + | Address | [address] | | | [place] [address] | + + + | Home Phone [...] Providers + +------+ + | Care Polisher Aluminum Name | Role | Phone | + [...] | 2014 | Encounter | [facility] [place] | [address] | Return to Work | | | | [address] | [address] | Authorization? | | | | [address] | [place], [place] | | | | | Alexis, [facility] floor | [address] | | | | | [place], [place] | [phone] | | | | | [address] | | | | | | [phone] | | | +--------+ + + + [...]
--- OUTSIDE RECORDS SUMMARY | ~2019-06-06 | XMS | Encounter Summary ---
Demographics + + + | Address | [address] | | | [place] [address] | + + + | Home Phone [...] Team Providers + +------+ + | Care Derrick Car Operator Name | Role | Phone | [...] | | | | | Procedures | [place], [place] | [place], [place] | | | | | CONSULT TO | [address] | [address] | | | | | ENT / FACIAL | Phone: | Phone: | | | | | PLASTIC | [phone] | [phone] | | | | | SURGERY | Fax: | Fax: | | | | | | [phone] | [phone] | +--------+--------+ + + + + Encounter [...] | | | | [address] [place], | | | | | Services at [facility] | [place] [address] | | | | | [address] | | | | | | Mailcode: [id number] | | | | | | [facility] | | | | | | and Healing, | | | | | | [address] | | | | | | Floor [place], [place] | | | | | | [address] | | | | | | [phone] | | | +--------+---------+ + + + [...] BTL Allergies: nkda Social History: Lives in [place]. Past smoking history, none now. No alcohol [...] wishes to sc hedule. Jose Olivia MD [employer] [facility] Re[facility]ive Surgery Department of Otolaryngology/Head and Neck Surgery [facility] Email - [email or web address] documented in this encounter Plan of Treatment Not on filedocumented as of this encounter Visit Diagnoses + + | Diagnosis | + + | Nasal septal defect - Primary Other diseases of nasal cavity and sinuses | + + documented in this encounter"
--- OUTSIDE RECORDS SUMMARY | ~2019-06-06 | XMS | Encounter Summary ---
Demographics + + + | Address | [address] | | | [place] [address] | + + + | Home Phone [...] Providers + +------+ + | Care Plastic Extruding Machine Operator Name | Role | Phone | + +------+ + | Tomasa Wagner | PCP | | + +------+ + Reason for Visit + + + | Reason | Comments | + + + | Medical Records | [facility] - OUTSIDE RECORDS 03/18/14 OV Summary | | Review | | + + + Encounter Details +--------+ + + + + | Date | Type | Department | Care Team | Description | +--------+ + + + + | 03/22/ | Abstract | [facility] | Tai Stanton, | Medical Records | | 2015 | | [place] [address] | [address] | Review ([facility] - | | | | [facility] | [facility] | OUTSIDE RECORDS | | | | for Health and | [place], [place] | 03/18/14 OV Summary) | | | | [facility] | [address] | | | | | [place], [place] | [phone] | | | | | [address] | | | | | | [phone] | | | +--------+ + + + [...]
--- OUTSIDE RECORDS SUMMARY | ~2019-06-06 | XMS | Encounter Summary ---
Demographics + + + | Address | [address] | | | [place] [address] | + + + | Home Phone [...] Author | [facility] | | | and Eduardoana | + + + | Organization | [facility] | | | and Eduardoana | + + + | Address | Unknown | + + + | Phone | Unavailable | + + + Support + + + + + | Name | Relationship | Address | Phone | + + + + + | Poncho Oquendo | ECON | [address] | | | | | [place] | | | | | [address] | | + + + + + | Marta Upton | ECON | [place] | | | | | [address] | | + + + + + Care Team Providers + +------+ + | Care Sagger Maker Name | Role | Phone | + +------+ + | Valeriy Carmona DO | PCP | | + +------+ + Encounter Details +--------+ + + + + | Date | Type | Department | Care Team | Description | +--------+ + + + + | 05/13/ | Orders Only | [facility] | Marcelina Johnson, | | | 2017 | | MED CTR CHEMO | RN | | | | | INFUSION [address] | | | | | | [place], | | | | | | [place] [address] | | | | | | [phone] | | | +--------+ + + + [...] | | | | | [place] [address] | | | | | | [phone] | | | | | | | | +--------+---------+ + + + documented as of this encounter Visit Diagnoses Not on filedocumented in this encounter"
--- OUTSIDE RECORDS SUMMARY | ~2019-06-06 | XMS | Encounter Summary ---
Demographics + + + | Address | [address] | | | [place] [address] | + + + | Home Phone [...] Author | [facility] | | | and Eduardoana | + + + | Organization | [facility] | | | and Eduardoana | + + + | Address | Unknown | + + + | Phone | Unavailable | + + + Support + + + + + | Name | Relationship | Address | Phone | + + + + + | Poncho Oquendo | ECON | [address] | | | | | [place] | | | | | [address] | | + + + + + | Marta Upton | ECON | [place] | | | | | [address] | | + + + + + Care Team Providers + +------+ + | Care Crop Adjuster Name | Role | Phone | [...] CENTER | | | | | [address] [facility] | [place] [address] | | | | | [place] [address] | [phone] | | | | | [phone] | | | +--------+ + + + [...] | | | | [facility] [address] | | | | | | [phone] | | | | | | | | +--------+---------+ + + + documented as of this encounter Visit Diagnoses Not on filedocumented in this encounter"
--- OUTSIDE RECORDS SUMMARY | ~2019-06-06 | XMS | Encounter Summary ---
Demographics + + + | Address | [address] | | | [place] [address] | + + + | Home Phone [...] Team Providers + +------+ + | Care Route Specialist Name | Role | Phone | + +------+ + | Valeriy Carmona MD | PCP | | + +------+ + Encounter Details +--------+--------+ + + + | Date | Type | Department | Care Team | Description | +--------+--------+ + + + | 12/23/ | Intake | Transfer Center | | N/A | | 2018 | | [address] | | | | | | [place] | | | | | | [place] [address] | | | +--------+--------+ + + + [...]
--- OUTSIDE RECORDS SUMMARY | ~2019-06-06 | XMS | Encounter Summary ---
Demographics + + + | Address | [address] | | | [place] [address] | + + + | Home Phone [...] + | Author | [facility] | | | and Eduardoana | + + + | Organization | [facility] | | | and Eduardoana | + + + | Address | Unknown | + + + | Phone | Unavailable | + + + Support + + + + + | Name | Relationship | Address | Phone | + + + + + | Poncho Oquendo | ECON | [address] | | | | | [facility] [place] | | | | | [address] | | + + + + + | Marta Upton | ECON | [place], [place] | | | | | [address] | | + + + + + Care Team Providers + +------+ + | Care Lining Sewer Name | Role | Phone | + +------+ + | No, Physician | PCP | Unavailable | + +------+ + Encounter Details +--------+ + + + + | Date | Type | Department | Care Team | Description | +--------+ + + + + | 04/26/ | Hospital | [facility] | Pedro Green, | | | 2019 | Encounter | REGIONAL SURGERY | DO [address] | | | | | CENTER INTRA OP | [place] [address] | | | | | [address] | [phone] | | | | | [place], [place] | | | | | | [address] | | | | | | [phone] | | | +--------+ + + + [...] [facility] | | | | | | [place] [address] | | | | | | [phone] | | | | | | | [...]
--- OUTSIDE RECORDS SUMMARY | ~2019-06-06 | XMS | Encounter Summary ---
Demographics + + + | Address | [address] | | | [place] [address] | + + + | Home Phone [...] + | Author | [facility] | | | and [place]ardoana | + + + | Organization | [facility] | | | and Eduardoana | + + + | Address | Unknown | + + + | Phone | Unavailable | + + + Support + + + + + | Name | Relationship | Address | Phone | + + + + + | Poncho Oquendo | ECON | [address] | | | | | [place] | | | | | [address] | | + + + + + | Marta Upton | ECON | [place] | | | | | [address] | | + + + + + Care Team Providers + +------+ + | Care Rip Sawyer Name | Role | Phone | [...] 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, | [address]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 | MD [address] | [place], | | | | | (HCC) | [address] | [place] [address] | | | | | Procedures | [place], | Phone: | | | | | [place] CISPLATIN | [place] [address] | [phone] | | | | | 10 MG | Phone: | Fax: | | | | | INJECTION | [phone] | [phone] | | | | | [place] | Fax: | | | | | | GEMCITABINE | [phone] | | | | | | HCL [...] + + | 08/06/ | Hospital | [facility] | Vladimir Robles, | Gallbladder cancer, | | 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 | + [...] + | [facility] | [address] | [place] | [phone] | | [facility] | | [address] | | | - LABORATORY | | [...] [place] | | | | | | [address] | | | | + + + + + + + + | Specimen | + + | Blood | + + + + + + + | Performing | Address | City/State/Zipcode | Phone Number | | Organization | | | | + + + + + | [facility] | [address] | [place] [address] | [phone] | + + + + + Lactate [...] [address] | [place] | [phone] | | [facility] | | [address] | | | - LABORATORY | | [...] 12 | 7 - 18 mg/dL | [facility] | | | | | | [facility] | | | | | | MEDICAL | | | | | | CENTER - | | | | | | LABORATORY | | + + + + + + | Creatinine | 0.95 | 0.60 - 1.30 | [facility] | | | | | mg/dL | [facility] | | | | | | MEDICAL | | | | | | CENTER - | | | | | | LABORATORY | | + + + + + + | eGFR if not | >60Comment: GLOMERULAR | >=60 | [facility] | | | | FILTRATION | mL/min/1.73m2 | [facility] | | | [place] | RATE,ESTIMATED | | MEDICAL | | | | mL/min/1.55e0Yzhz than | | CENTER - | | [...] [address] | [place] | [phone] | | [facility] | | [address] | | | - LABORATORY | | [...] [address] | [place] | [phone] | | [facility] | | [address] | | | - LABORATORY | | [...] [address] | [place] | [phone] | | [facility] | | [address] | | | - LABORATORY | | [...]
--- OUTSIDE RECORDS SUMMARY | ~2019-06-06 | XMS | Encounter Summary ---
Demographics + + + | Address | [address] | | | [place] [address] | + + + | Home Phone [...] Team Providers + +------+ + | Care Jet Mechanic Name | Role | Phone | [...] | | | | | | | [place], [place] | | | | | | | [address] | | | | | | | Phone: | | | | | | | [phone] | | | | | | | Fax: | | | | | | | [phone] | +--------+--------+ + + + + Encounter Details +--------+---------+ + + + | Date | Type | Department | Care Team | Description | +--------+---------+ + + + | 03/07/ | Office | [facility] | Aamir Lau, | Chronic Ethmoidal | | 2008 | Visit | [facility] | MD [address] | Sinusitis | | | | [address] | [place], [place] | | | | | Mailcode: KAREEN | [address] | | | | | [facility] | [phone] | | | | | and Healing, | | | | | | Building | | | | | | Floor [place], [place] | | | | | | [address] | | | | | | [phone] | | | +--------+---------+ + + + [...] documentation. Aamir Lau M.D., M.P.H., F.A.C.S. Director, [facility] Professor and Chief, Rhinology and Sinus Surgery Department of Otolaryngology/Head and Neck Surgery Faustina Olvera MD - 03/07/2008 3:51 PM PST HPI: Aura Upton is a 47 y.o. female who presents to the [facility] for foll ow up of S/P Sinus Surgery (septoplasty) with Dr. Benedict in [place]. Current symptoms inc lude nasal congestion. Symptoms [...] | + + +--------+ + + | [place] [facility] | Procedures | Routin | Chronic Ethmoidal | Ordered: 03/07/2008 | | ENDOSCOPY,DX | | e | Sinusitis | | + + +--------+ + + documented as of this encounter Visit Diagnoses + + | Diagnosis | + + | Chronic ethmoidal sinusitis | + + documented in this encounter"
--- OUTSIDE RECORDS SUMMARY | ~2019-06-06 | XMS | Encounter Summary ---
Demographics + + + | Address | [address] | | | [place] [address] | + + + | Home Phone [...] | [facility] | | | and Eduardoana | + + + | Organization | [facility] | | | and Eduardoana | + + + | Address | Unknown | + + + | Phone | Unavailable | + + + Support + + + + + | Name | Relationship | Address | Phone | + + + + + | Poncho Oquendo | ECON | [address] | | | | | [facility] [place] | | | | | [address] | | + + + + + | Marta Upton | ECON | [place] | | | | | [address] | | + + + + + Care Team Providers + +------+ + | Care Seater Assembler Name | Role | Phone | [...] + + | 11/29/ | Anesthesia | [facility] | Roger Callaway MD | | | 2018 | [facility] | [address] | | | | | OPERATING ROOM [address] | [place] [address] | | | | | [address] | [phone] | | | | | [place], [place] | | | | | | [address] | Cass Harris, | | | | | [phone] | MD [address] | | | | | | [place] [address] | | | | | | [phone] | | | | | | | [...] 11/29/18 1550 by | | eral | yliv-[id number] catheter system; | Kim Denson RN | Nikky Guallpa RN | | IV | 20 gauge; expected removal post | | | | | discharge; 11/29/18; 1550 | | | +--------+ + + + | Airway | Placement Date: 11/29/18; | 11/29/18 1335 by | 11/29/18 1552 by | | | Placement Time: 1335; Mask | Cass Marquezvikash, | Nikky Gulalpa RN | | | Ventilation: EZ; Airway [...] VD | | | | | | [place] [address] | | | | | | [phone] | | | | | | | [...]
--- OUTSIDE RECORDS SUMMARY | ~2019-06-06 | XMS | Encounter Summary ---
Demographics + + + | Address | [address] | | | [place] [address] | + + + | Home Phone [...] + + | Author | [facility] | | | and Eduardoana | + + + | Organization | [facility] | | | and Eduardoana | + + + | Address | Unknown | + + + | Phone | Unavailable | + + + Support + + + + + | Name | Relationship | Address | Phone | + + + + + | Poncho Oquendo | ECON | [address] | | | | | [place] | | | | | [address] | | + + + + + | Marta Upton | ECON | [place] | | | | | [address] | | + + + + + Care Team Providers + +------+ + | Care Rock Crusher Operator Name | Role | Phone | [...] | | | [facility] [address] | [facility] | | | | | [address] [facility] | [place] [address] | | | | | [place] [address] | [phone] | | | | | [phone] | | | +--------+ + + + [...] [facility] | | | | | | [facility] [place] [address] | | | | | | [phone] | | | | | | | | +--------+---------+ + + + documented as of this encounter Visit Diagnoses Not on filedocumented in this encounter"
--- OUTSIDE RECORDS SUMMARY | ~2019-06-06 | XMS | Encounter Summary ---
Demographics + + + | Address | [address] | | | [place] [address] | + + + | Home Phone [...] Team Providers + +------+ + | Care Epic Stork Specialists Name | Role | Phone | + [...] [facility] [address] | [address] | | | | | HIEN [facility] | [facility] | | | | | for Health and | [place], [place] | | | | | [facility], [place] [address] | [address] | | | | | [place], [place] | [phone] | | | | | [address] | | | | | | [phone] | | | +--------+ + + + [...]
--- OUTSIDE RECORDS SUMMARY | ~2019-06-06 | XMS | Encounter Summary ---
Demographics + + + | Address | [address] | | | [place] [address] | + + + | Home Phone [...] | Author | [facility] | | | and Eduardoana | + + + | Organization | [facility] | | | and Eduardoana | + + + | Address | Unknown | + + + | Phone | Unavailable | + + + Support + + + + + | Name | Relationship | Address | Phone | + + + + + | Poncho Oquendo | ECON | [address] | | | | | [facility] [place] | | | | | [address] | | + + + + + | Marta Upton | ECON | [place], [place] | | | | | [address] | | + + + + + Care Team Providers + +------+ + | Care Digital Media Manager Name | Role | Phone | + +------+ + PCP | Unavailable | + +------+ + Encounter Details +--------+ + + + + | Date | Type | Department | Care Team | Description | +--------+ + + + + | 09/28/ | Hospital | [facility] | Hakan Cherry | | | 2011 | Encounter | MED CTR XRAY [address] | [address] | | | | | [place] | ST [place], [place] | | | | | [place] [address] | [address] | | | | | [phone] | | | +--------+ + + + [...] | | DO [address] [facility] | | | | | | [place] [address] | | | | | | [phone] | | | | | | | [...] + + | [facility] | [facility] | | [address] [facility] | [facility] | | 09/29/2011, LUMBAR FACET | [...] Transcribed Date/Time: | | | 09/30/2011 07:23 Pest Management Supervisor: <Electronically Signed | | | by Hakan Cherry MD> 10/01/11 0936 | | + + + + + | Procedure Note | + + | Edmundo, Rad Conversion - 03/23/2013 5:52 PM [facility] | | Diagnostic Imaging Department | | [address] [facility] | | | | | [...] | Transcribed Date/Time: 09/30/2011 07:23 | | Pest Management Supervisor: | | <Electronically Signed by Hakan Cherry MD> 10/01/11 0936 | + + + +---------+ + + | Performing | Address | City/State/Zipcode | Phone Number | | Organization | | | | + +---------+ + + | [place] | | | | | [facility] | | | | + +---------+ + + documented in this encounter Visit Diagnoses Not on filedocumented in this encounter"
--- OUTSIDE RECORDS SUMMARY | ~2019-06-06 | XMS | Encounter Summary ---
Demographics + + + | Address | [address] | | | [place] [address] | + + + | Home Phone [...] Providers + +------+ + | Care Animal Husbandry Professor Name | Role | Phone | [...] | | 2015 | | [facility] | [address] | (Miguel Seymour) | | | | [address] | [facility] | | | | | [address] | [place], [place] | | | | | Pavilion, [facility] floor | [address] | | | | | [place], [place] | [phone] | | | | | [address] | | | | | | [phone] | | | +--------+ + + + [...]
--- OUTSIDE RECORDS SUMMARY | ~2019-06-06 | XMS | Encounter Summary ---
Demographics + + + | Address | [address] | | | [place] [address] | + + + | Home Phone [...] + | Author | [facility] | | | and Eduardoana | + + + | Organization | [facility] | | | and Eduardoana | + + + | Address | Unknown | + + + | Phone | Unavailable | + + + Support + + + + + | Name | Relationship | Address | Phone | + + + + + | Poncho Oquendo | ECON | [address] | | | | | [place] | | | | | [address] | | + + + + + | Marta Upton | ECON | [place] | | | | | [address] | | + + + + + Care Team Providers + +------+ + | Care Construction Worker Name | Role | Phone | [...] W | | | | | | [place], | | | | | | [place] [address] | | | | | | [phone] | | | +--------+ + + + [...] [facility] | | | | | | [place] [address] | | | | | | [phone] | | | | | | | | +--------+---------+ + + + documented as of this encounter Visit Diagnoses Not on filedocumented in this encounter"
--- OUTSIDE RECORDS SUMMARY | ~2019-06-06 | XMS | Encounter Summary ---
Demographics + + + | Address | [address] | | | [place] [address] | + + + | Home Phone [...] + | Author | [facility] | | | and Eduardoana | + + + | Organization | [facility] | | | and Eduardoana | + + + | Address | Unknown | + + + | Phone | Unavailable | + + + Support + + + + + | Name | Relationship | Address | Phone | + + + + + | Poncho Oquendo | ECON | [address] | | | | | [facility] [place] [place] | | | | | [address] | | + + + + + | Marta Upton | ECON | [place], [place] | | | | | [address] | | + + + + + Care Team Providers + +------+ + | Care Automobile Sales Consultant Name | Role | Phone | + +------+ + PCP | Unavailable | + +------+ + Encounter Details +--------+ + + + + | Date | Type | Department | Care Team | Description | +--------+ + + + + | 03/19/ | Hospital | [facility] | | | | 2013 | Encounter | MED CTR CANCER | | | | | | CENTER [address] | | | | | | [place] | | | | | | [address] | | | | | | [phone] | | | +--------+ + + + [...] [facility] | | | | | | [place] [address] | | | | | | [phone] | | | | | | | [...] + | [facility] | [address] | [place] | [phone] | | [facility] | | [address] | | | - LABORATORY | | | | + + + + + | [facility] | [address] | [place] | | | [facility] | | [address] | | | - [...] | [facility] | | | | [place] [facility] | | MEDICAL | | | [...] + | [facility] | [address] | [place] | [phone] | | [facility] | | [address] | | | - LABORATORY | | | | + + + + + | [facility] | [address] | [place] | | | [facility] | | [address], [facility] | | | - [...] | | (formerly Mahad) Advia | | [facility] | | | | Centaur immunoassay | [...] | | | | [address], [place], [place] | | | | | | [address] CLIA: | | | | | | [id number] | | | | + + + + + + + + | Specimen | + + | | + + + + + + + | Performing | Address | City/State/Zipcode | Phone Number | | Organization | | | | + + + + + | [facility] | [address] | [place] | [phone] | | [facility] | | [address] | | | - LABORATORY | | | | + + + + + | [facility] | [address] | [place] | | | [facility] | | [address] | | | - [...] 11 | 7 - 18 mg/dL | [facility] | | | | | | [facility] | | | | | | MEDICAL | | | | | | CENTER - | | | | | | LABORATORY | | + + + + + + | Creatinine | 0.72 | 0.60 - 1.30 | [facility] | | | | | mg/dL | [facility] | | | | | | MEDICAL | | | | | | CENTER - | | | | | | LABORATORY | | + + + + + + | Estimated | >60Comment: For | >60 mL/min/A | [facility] | | | GFR | -Americans, | [...] + | [facility] | [address] | [place], [place] | [phone] | | [facility] | | [address] | | | - LABORATORY | | | | + + + + + | [facility] | [address] | [place] | | | [facility] | | [address] | | | - [...] + | [facility] | [address] | [place] | [phone] | | [facility] | | [address] | | | - LABORATORY | | | | + + + + + | [facility] | [address] | [place] | | | [facility] | | [address] | | | - LABORATORY | | | | + + + + + documented in this encounter Visit Diagnoses Not on filedocumented in this encounter"
--- OUTSIDE RECORDS SUMMARY | ~2019-06-06 | XMS | Encounter Summary ---
Demographics + + + | Address | [address] | | | [place] [address] | + + + | Home Phone [...] Providers + +------+ + | Care Produce Team Member Name | Role | Phone [...] | 2012 | | Center at [facility] [address] | [address] | | | | | [address]EN [facility] | [facility] | | | | | for Health and | [place], [place] | | | | | [facility], [place] [address] | [address] | | | | | [place], [place] | [phone] | | | | | [address] | | | | | | [phone] | | | +--------+ + + + [...]
--- OUTSIDE RECORDS SUMMARY | ~2019-06-06 | XMS | Encounter Summary ---
Demographics + + + | Address | [address] | | | [place] [address] | + + + | Home Phone [...] Author | [facility] | | | and Eduardoana | + + + | Organization | [facility] | | | and Eduardoana | + + + | Address | Unknown | + + + | Phone | Unavailable | + + + Support + + + + + | Name | Relationship | Address | Phone | + + + + + | Poncho Oquendo | ECON | [address] | | | | | [place] | | | | | [address] | | + + + + + | Marta Upton | ECON | [place] | | | | | [address] | | + + + + + Care Team Providers + +------+ + | Care Laboratory Manager Name | Role | Phone | [...] | | | | Malignant | MD oLuise | Vladimir Nelson MD | | | | | neoplasm of | [address] | [address]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 | [address] | | | | | (HCC) | [place], [place] | [place], | | | | | Procedures | [address] | [place] [address] | | | | | DC OFFICE | Phone: | Phone: | | | | | OUTPATIENT | [phone] | [phone] | | | | | VISIT 25 | Fax: | Fax: | | | | | MINUTES | [phone] | [phone] | +--------+--------+ + + + + Encounter Details +--------+ + + + + | Date | Type | Department | Care Team | Description | +--------+ + + + + | 08/06/ | Hospital | [facility] | Vladimir Robles, | Gallbladder cancer, | | 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 Hematology-Oncology Progress Note [facility] Pt. Name/Age/: Aura Upton 55 y.o. 1960 CSN: [id number] Date of service: 08/06/2016 Provider: Vladimir Robles [...] scheduled. 1. Day 8, cycle #6 of gemcitabine/cis-circle. 2. Neupogen, Aranesp in [place]. 3. Follow-up scheduled with Dr. Najera on [...] Last chemotherapy was a week ago at [facility]. My chart: active. Medications: Current Outpatient Prescriptions [...] this chart may have been created with [employer] voice recognition software. Occasi onal wrong-word or [...] 2019 | Visit | | DO [address] | | | | | | [place] [address] | | | | | | [phone] | | | | | | | [...]
--- OUTSIDE RECORDS SUMMARY | ~2019-06-06 | XMS | Encounter Summary ---
Demographics + + + | Address | [address] | | | [place] [address] | + + + | Home Phone [...] Team Providers + +------+ + | Care Disbursement Clerk Name | Role | Phone | [...] | 2012 | | Oncology at [facility] | [address] | Request | | | | [address] [facility] | [facility] [address] | | | | | Mailcode: CH7M | [place] [address] | | | | | [facility] | [phone] | | | | | and Brittny, | | | | | | [facility] | | | | | | [place], [place] | | | | | | [address] | | | | | | [phone] | | | +--------+ + + + [...]
--- OUTSIDE RECORDS SUMMARY | ~2019-06-06 | XMS | Encounter Summary ---
Demographics + + + | Address | [address] | | | [place] [address] | + + + | Home Phone [...] Author | [facility] | | | and Eduardoana | + + + | Organization | [facility] | | | and Eduardoana | + + + | Address | Unknown | + + + | Phone | Unavailable | + + + Support + + + + + | Name | Relationship | Address | Phone | + + + + + | Poncho Oquendo | ECON | [address] | | | | | [place] | | | | | [address] | | + + + + + | Marta Upton | ECON | [place] | | | | | [address] | | + + + + + Care Team Providers + +------+ + | Care Assurance Services Manager Health Care Name | Role | Phone | + +------+ + | Valeriy Carmona DO | PCP | | + +------+ + Encounter Details +--------+ + + + + | Date | Type | Department | Care Team | Description | +--------+ + + + + | 09/16/ | Hospital | [facility] | [facility], | Gallbladder cancer, | | 2015 | Encounter | [facility] | Epifanio Soler MD [address] | carcinoma (HCC) | | | | ONCOLOGY CLINIC [address] [place] | (Primary Dx); | | | | [address] | [place] [address] | Ovarian cyst; | | | | [place] [address] | [phone] | Personal history of | | | | [phone] | | malignant neoplasm | | | [...] [address] | | | | | | [place] [address] | | | | | | [phone] | | | | | | | [...] + + | Performing | Address | City/State/[facility] | Phone Number | | Organization | | | | + + + + + | [address] | [address] | [place] | [phone] | | [facility] | | [address] | | | - LABORATORY | | [...] [place] | | | | | | [address] | | | | + + + [...] [address] | [place] [address] | [phone] | + + + + + Comprehensive [...] | mL/min/1.73m2 | [facility] | | | LATVIAN | RATE,ESTIMATED | | MEDICAL | | | | mL/min/1.99g6Cnij than | | CENTER - | | [...] [address] | [place] | [phone] | | [facility] | | [address] | | | - LABORATORY | | [...] + | [facility] | [address] | [place] | [phone] | | [facility] | | [address] | | | - LABORATORY | | [...] | | | | | | [facility] | | | | | | MEDICAL [...] + | [address] | [address] | [place], [place] | [phone] | | [facility] | | [address] | | | - LABORATORY | | [...] | | | | | | [place] [address] | | | | + + + [...] [address] | [place] [address] | [phone] | + + + + + [place] [...] [address] | [place] | [phone] | | [facility] | | [address] | | | - LABORATORY | | [...]
--- OUTSIDE RECORDS SUMMARY | ~2019-06-06 | XMS | Encounter Summary ---
Demographics + + + | Address | [address] | | | [place] [address] | + + + | Home Phone [...] + | Poncho Oquendo | ECON | [address] | | | | | [place] | | | | | [address] | | + + + + + | Marta Upton | ECON | [place] | | | | | [address] | | + + + + + Care Team Providers + +------+ + | Care Corporate Training Manager Name | Role | Phone | [...] WALL | | | | | [address] | [place] [address] | | | | | [place] [address] | [phone] | | | | | [phone] | | | +--------+ + + + [...] | | | | | [place] [address] | | | | | | [phone] | | | | | | | | +--------+---------+ + + + documented as of this encounter Visit Diagnoses Not on filedocumented in this encounter"
--- OUTSIDE RECORDS SUMMARY | ~2019-06-06 | XMS | Encounter Summary ---
Demographics + + + | Address | [address] | | | [place] [address] | + + + | Home Phone [...] Team Providers + +------+ + | Care Iron Miner Blasting Name | Role | Phone | + [...] 2012 | | [address] | [address] [facility] [address] | LAPAROSCOPY WITH | | | | Rd [facility] | [facility] | BIOPSY, OPEN SEGMENT | | | | Hospital Admitting | [place], [place] | 4B/5 LIVER | | | | Desk Located on the | [address] | RESECTION, PORTAL | | | | 9th floor | [phone] | LYMPHADENECTOMY | | | | [place], [place] | | Specimens x 6 (FS) | | | | [address] | | | +--------+---------+ + + + [...] acute cholecystitis. Her pathology was reviewed at [facility]. She underwent a CT scan, which [...] working on arranging an appointm ent with [facility] Oncology for treatment planning. FINAL PATHOLOGY: [...] severe diarrhea.During normal business hours please call [facility] loreto .For 'after hours' URGENT problems please call the [facility] transcribing operators supervisor at and ask for the "Blue Surgery [...] None Your Follow-Up Plan Follow up with [facility] HEMATOLOGY [facility]COL[facility]Y [facility]. (Please expect a call from the Oncology clini c in the next several days to schedule an appointment with either Dr. Grey or Dr. Ledesma ) Contact information: [address] [address] Future Appointments Date & Time Provider Department Dept Phone Center 05/17/2012 11:30 AM CORNELIA KNUTSON MD [facility] [phone] [facility] Discharging Physician: MARCO ANTONIO BEATTY NP Attending Physician: MD Marco Antonio Mauricio RN, MSN, MANAGER OCCUPATIONAL [facility] Blue Surgery Pager# [phone] 9:37 AM 05/04/2012 documented in this enc [...] 05/03/12699 - 05/04/1265805/04/12699 - 05/05/12 0659(Discharged) Shift 8601-8015 8225-6522 6443-5909 Daily Total 8254-1223 5137-5266 4052-3942 Daily Total I N T A K E P.O. 925 870 985 3188 500 500 I.V. 5 10 15 Shift Total 930 234 151 6792 500 500 O U T P U T Urine 1050 2832 392 0547 400 400 Urine 1050 5858 217 9203 400 400 Other Stool 1 1 Shift Total 1050 5112 713 5507 400 400 NET -120 -1090 205 -1005 [...] Attending Physician: Dr. Romy Beatty RN, MSN, MANAGER OCCUPATIONAL [facility] Blue Surgery Pager# [phone] 12:54 PM 05/04/2012 Current Inpatient Medications Medication [...] Parish Arias MD - 5:51 AM PDT [facility] Department of Surgery Blue Surgery Progress [...] - 04/30/1259 04/30/12699 - 05/01/12 0659 Shift 3410-1686 1892-8020 6578-2293 Daily Total 1339-4497 0472-6740 4476-0633 Daily Total I N T A K E P.O. 620 064 308 8176 P.O. 620 938 359 4457 I.V. 1977.33 977.5 982.5 3937.33 0 0 [...] O U T P U T Urine 096 193 3986 2004 I/O Urinary Drain Output (Urinary Cath Placement López) 227 642 4623 2004 Shift Total 437 091 6849 2005 NET 2415.83 837.5 307.5 3560.83 0 [...] tomorrow Parish Blackburn MD Surgery, R1 Pager: [phone] ilvia Del Toro NP - 05/01/2012 2:19 PM PDTPain fairly well controlled on oral medications. No longer nauseated, tolerating 10 mg oxycodone Epidural catheter discontinued, tip intact. APS will sign off, please call us back if there are any pain related concerns for us to add ress. Silvia Del Toro NP Adult Pain Service Pager [phone] Team Pager [phone] Silvia Mckeon NP - 05/01/2012 8:56 AM [...] and summary of old medical records (source: [employer]), as summarized in the body of the note. SILVIA DEL TORO NP BILLING INFORMATION [facility] DEPARTMENT: [id number] Place of Service:- Inpatient Date of Service: 05/01/2012 CSN: [id number] Suggested Modifier: None Suggested CPT: 96842 - Daily mgmt epidural/subarachnoid drug administration Prolonged service: n/a Parish Arias MD - 05/01/2012 5:44 AM PDT [facility] Department of Surgery Blue Surgery Progress [...] 0659 04/30/12 07 - 05/01/12 0659 Shift 8446-0852 7446-8891 4380-1026 Daily Total 4354-2519 6380-2397 8295-5053 Daily Total I N T A K E P.O. 620 705 293 1494 P.O. 620 331 901 5879 I.V. 1977.33 977.5 982.5 3937.33 0 0 [...] O U T P U T Urine 836 901 3091 2004 I/O Urinary Drain Output (Urinary Cath Placement López) 934 409 9542 2004 Shift Total 261 443 5975 2005 NET 2415.83 837.5 307.5 3560.83 0 [...] course Parish Blackburn MD Surgery, R1 Pager: [phone] Parish Arias MD - 11:59 AM PDT [facility] Department of Surgery Blue Surgery Progress [...] Date 04/29/12699 - 04/30/1265804/30/12699 - 05/01/12658 Shift 0942-7202 0716-9174 5508-5308 Daily Total 3388-0756 3302-0197 7840-1396 Daily Total I N T A K E P.[address]. 620 682 424 8203 P.O. 620 480 835 8921 I.V. 1977.33 977.5 982.5 3937.33 0 0 [...] O U T P U T Urine 310 883 0709 2004 I/O Urinary Drain Output (Urinary Cath Placement López) 210 888 2922 2004 Shift Total 287 422 9126 2004 NET 2415.83 837.5 307.5 3560.83 0 [...] course Parish Blackburn MD Surgery, R1 Pager: [phone] Sasha Antony MD - 04/30/2012 7:03 AM [...] primary service. JOSE MALAGON MD BILLING INFORMATION [facility] DEPARTMENT: [id number] Place of Service:- Inpatient Date of Service: 04/30/2012 CSN: [id number] Suggested Modifier: GC - Resident Involved Suggested CPT: 38655 - Daily mgmt epidural/subarachnoid drug administration Prolonged [...] and recommendations with the primary care team. SASAH DALY MD Sasha Antony MD - 04/29/2012 [...] the floor later today. 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[employer] Hypotension Fluid bolus as needed to [...] for intervention Dispo TRANSFER TO [facility] ONLY Sasha Antony MD - 04/29/2012 7:43 [...] making: N/a JOSE MALAGON MD BILLING INFORMATION [facility] DEPARTMENT: [id number] Place of Service:21723- Inpatient Date of Service: 04/29/2012 CSN: [id number] Suggested Modifier: GC - Resident Involved Suggested CPT: 49464 - Daily mgmt epidural/subarachnoid drug administration Prolonged [...] MD Department of Obstetrics & Gynecology, PGY1 [facility] Pager [phone] documented in thi s encounter Plan of [...] [facility] | [address] | [place] [address] | | | SERVICES, CORE | PARK [...] | + + + + + | [facility] | [address] | [place] [address] | | | SERVICES, CORE | PARK [...] | + + + + + | [facility] | [address] | [place] [address] | | | SERVICES, CORE | NEAL [...] | + + + + + | [facility] | [address] | [place] [address] | | | SERVICES, CORE | PARK [...] | + + + + + | [facility] | [address] | [place] [address] | | | SERVICES, CORE | [address] | | | + + + + + MAGNESIUM, PLASMA (05/03/2012 6:00 AM PDT) + +-------+ + + + | Component | Value | Ref Range | Performed | Pathologist | | | | | At | Signature | + +-------+ + + + | MAGNESIUM,P | 1.8 | 1.8 - 2.5 mg/dL | [facility] | | | TALIBMA | | | [...] | + + + + + | [facility] | [address] | [place] [address] | | | SERVICES, CORE | NEAL [...] | + + + + + | [facility] | [address] | [place] [address] | | | SERVICES, CORE | NEAL [...] [facility] | [address] | [place] [address] | | | SERVICES, CORE | PARK [...] | + + + + + | [facility] | [address] | [place] [address] | | | SERVICES, CORE | NEAL [...] (H) | 60 - 99 mg/dL | [facility] - | | | GLUCOSE, | [...] BRUNNER | [address] | [place], [place] | | | JOHN CONTE OF ARJUN | [address] | [address] | | | TESTS | | | [...] | + + + + + | [employer] | [address] | [place] [address] | | | SERVICES, CORE | PARK [...] [facility] | [address] | [place], [place] | | | JOHN CONTE OF CARE | [address] | [address] | | | TESTS | | | [...] | + + + + + | [facility] | [address] | [place] [address] | | | GAVIN, CORE | PARK [...] | + + + + + | [facility] | [address] | [place] [address] | | | SERVICES, CORE | NEAL [...] | + + + + + | [facility] | [address] | [place] [address] | | | SERVICES, CORE | NEAL [...] (H) | 60 - 99 mg/dL | [facility] - | | | GLUCOSE, | [...] BRUNNER | [address] | [place], [place] | | | [facility] | [facility] | [address] | | | TESTS | | | [...] KANNAN | [address] | [place], [place] | | | [facility] AR[facility]UN | [address] | [address] | | | TESTS | | | [...] | + + + + + | [facility] | [address] | [place] [address] | | | SERVICES, CORE | NEAL [...] | + + + + + | [facility] | [address] | [place] [address] | | | GAVIN, CORE | [address] | | | + + + + + MAGNESIUM, PLASMA (04/30/2012 6:42 AM PDT) + +-------+ + + + | Component | Value | Ref Range | Performed | Pathologist | | | | | At | Signature | + +-------+ + + + | MAGNESIUM,P | 1.8 | 1.8 - 2.5 mg/dL | [facility] | | | TALIBMA | | | [...] | + + + + + | [facility] | [address] | [place] [address] | | | SERVICES, CORE | NEAL [...] + + | [facility] | [address] | [place] [address] | | | SERVICES, [facility] | [facility] | | | + + + + + OPERATION RECORD (04/29/2012 5:13 PM PDT) + + | Transcriptions | + + | Ruba Muhammad MD - 04/28/2012 10:30 PM PDT Date: | | 04/28/2012ttending Surgeon: Cornelia Knutson M.D.Accounts Payable Representative(s): | | VENKATA Mcclainreoperative Diagnosis(es):Gallbladder | | [...] with an incidental finding of | | F4znevwekqngu adenocarcinoma at her recent laparoscopic cholecystectomy foracute | | cholecystitis. Her pathology was reviewed at [facility]. She underwent aCT scan, which | [...] RSI | | was completed.Cornelia Knutson M.D.[facility] ([facility])Professor | | and Vice-Pole Shaver of SurgeryThe Shahriar Nava Chair for Pancreatic Disease | | ResearchPancreatic/ HepatoBiliary and Foregut Working GroupsMail Code [id number] [facility] | | [place], [place]. [address]Xjaii Fax [phone] | | [phone]: [email or web address] Knutson M.D.Professor and Vice-Pole Shaver of | | SurgeryThe Shahriar Nava Chair for Pancreatic Disease ResearchErlanger East Hospital | | [place] ([facility])Division of Gastrointestinal and General Surgery / [id number] / | | [id number] / [id number] / T: 04/28/2012 | |with electrocautery. Biopsy [...] | | |Cornelia Knutson M.D. | |[facility] ([facility]) | |Professor and Vice-Pole Shaver of Surgery | |The Shahriar Nava Chair for Pancreatic Disease Research | |Pancreatic/ HepatoBiliary and Foregut Working Groups | |Mail Code [id number] | |[address] | |[place], [place]. [address] | | | | | |email: [email or web address] | | | | | |Cornelia Knutson M.D. | |Professor and Vice-Pole Shaver of Surgery | |The Shahriar Nava Chair for Pancreatic Disease Research | |[facility] ([facility]) | |Division of Gastrointestinal and General Surgery | | | |JS / HS | |[id number] / [id number] / [id number] / | | | | | + + CBC (04/29/2012 1:43 AM PDT) + + + + + + | Component | Value | Ref Range | Performed | Pathologist | | | | | At | Signature | + + + + + + | WBC COUNT | 10.5 | 4.4 - 11.0 K/cu | [facility] | | | | | mm [...] [facility] | [address] | [place] [address] | | | SERVICES, CORE | PARK [...] | + + + + + | [facility] | [address] | [place] [address] | | | SERVICES, CORE | [address] | | | + + + + + MAGNESIUM, PLASMA (04/29/2012 1:43 AM PDT) + +-------+ + + + | Component | Value | Ref Range | Performed | Pathologist | | | | | At | Signature | + +-------+ + + + | MAGNESIUM,P | 2.5 | 1.8 - 2.5 mg/dL | [facility] | | | LASMA | | [...] | + + + + + | [facility] | [address] | [place] [address] | | | SERVICES, CORE | PARK [...] | + + + + + | [facility] | [address] | [place] [address] | | | SERVICES, CORE | PARK [...] in | | | | | | [facility]. No | | | | | [...] [facility] | [address] | [place] [address] | | | SERVICES, CORE | PARK [...] | + + + + + | [facility] | [address] | [place] [address] | | | SERVICES, CORE | PARK [...] | + + + + + | [employer] [facility] | [address] | [place] [address] | | | SERVICES, CORE | NEAL [...] [facility] | [address] | [place] [address] | | | SERVICES, CORE | PARK [...] | + + + + + | [facility] | [address] | [place] [address] | | | SAM ALONSO | NEAL [...] | 1.0 | 0.5 - 1.6 | [facility] - | | | | | mmol/L [...] [facility] | [address] | [place], [place] | | | JOHN CONTE OF ARJUN | [facility] | [address] | | | TESTS | | | [...] BRUNNER | [address] | [place], [place] | | | DG POINT OF CARE | [address] | [address] | | | TESTS | | | [...] [facility] | [address] | [place], [place] | | | DG POINT OF CARE | [address] | [address] | | | TESTS | | | [...] - [facility] | [address] | [place], [place] | | | JOHN CONTE OF CARE | [address] | [address] | | | TESTS | | | [...] + + + | [facility] | [address] | [place], [place] | | | DG POINT OF CARE | [address] | [address] | | | TESTS | | | | + + + + + CALCIUM (ART)MALYIN (04/28/2012 8:38 AM PDT) + +-------+ + [...] [facility] | [address] | [place], [place] | | | DG POINT OF CARE | [address] | [address] | | | TESTS | | | [...] - [facility] | [address] | [place], [place] | | | JOHN CONTE OF CARE | [address] | [address] | | | TESTS | | | [...] BRUNNER | [address] | [place], [place] | | | DG POINT OF CARE | [address] | [address] | | | TESTS | | | [...] bed. | | | | | | Tug Captain | | | | | | sections [...] vein. | | | | | | Tug Captain | | | | | | sections [...] | | | | | | [id number], customer operations representative | | | | | | [...] | + + + + + | [facility] | [address] | [place] [address] | | | PATHOLOGY | [address] [...]
--- OUTSIDE RECORDS SUMMARY | ~2019-06-06 | XMS | Encounter Summary ---
Demographics + + + | Address | [address] | | | [place] [address] | + + + | Home Phone [...] Team Providers + +------+ + | Care Drying Room Attendant Name | Role | Phone | + +------+ + | Valeriy Carmona MD | PCP | | + +------+ + Encounter Details +--------+ + + + + | Date | Type | Department | Care Team | Description | +--------+ + + + + | 04/07/ | Telephone | [facility] | Tai Stanton, | | | 2012 | | Center at [facility] [address] | [address] | | | | | [address] [facility] | [facility] | | | | | for Health and | [place], [place] | | | | | [facility] [place] [address] | [address] | | | | | [place], [place] | [phone] | | | | | [address] | | | | | | [phone] | | | +--------+ + + + [...]
--- OUTSIDE RECORDS SUMMARY | ~2019-06-06 | XMS | Encounter Summary ---
Demographics + + + | Address | [address] | | | [place] [address] | + + + | Home Phone [...] | Author | [facility] | | | and Eduardo[place] | + + + | Organization | [facility] | | | and [place]ardo[place] | + + + | Address | Unknown | + + + | Phone | Unavailable | + + + Support + + + + + | Name | Relationship | Address | Phone | + + + + + | Poncho Oquendo | ECON | [address] | | | | | [place] | | | | | [address] | | + + + + + | Marta Upton | ECON | [place] | | | | | [address] | | + + + + + Care Team Providers + +------+ + | Care Air Twister Winder Name | Role | Phone | [...] + + | 05/30/ | Refill | [facility] | Reinaldo, | Medication Refill | | 2019 | | [facility] | Epifanio Soler MD [address] | | | | [facility] [address] | [facility] | | | | | [address] | [place] [address] | | | | | [place] [address] | [phone] | | | | | [phone] | | | +--------+--------+ + + + [...] 2019 | Visit | | DO [address] [facility] | | | | | | [place] [address] | | | | | | [phone] | | | | | | | | +--------+---------+ + + + documented as of this encounter Visit Diagnoses + + | Diagnosis | + + | Gallbladder cancer, 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
--- OUTSIDE RECORDS SUMMARY | ~2019-06-06 | XMS | Encounter Summary ---
Demographics + + + | Address | [address] | | | [place] [address] | + + + | Home Phone [...] | Author | [facility] | | | and Eduardoana | + + + | Organization | [facility] | | | and Eduardoana | + + + | Address | Unknown | + + + | Phone | Unavailable | + + + Support + + + + + | Name | Relationship | Address | Phone | + + + + + | Poncho Oquendo | ECON | [address] | | | | | [place] | | | | | [address] | | + + + + + | Marta Upton | ECON | [place] | | | | | [address] | | + + + + + Care Team Providers + +------+ + | Care Manager Psychology Name | Role | Phone | + [...] | | Personal | Re[place], | [address] | | | | | 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, | [place], | | | | | 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 [address] | [place] [address] | | | | | neoplasm of | [address] | Phone: | | | | | other site | [place], | [phone] | | | | | in | [place] [address] | Fax: | | | | | gastrointest | Phone: | [phone] | | | | | inal tract | [phone] | | | | | | Procedures | Fax: | | | | | | CT Abdomen | [phone] | | | | | | Pelvis [...] + + | 09/25/ | Hospital | [facility] | [facility], [facility], | Personal history of | | 2013 | Encounter | MED CTR MEDICAL | Epifanio Soler MD [address] | malignant neoplasm | | | | [facility]OGY CLINIC [address] | [address] [place] | of other site in | | | | [facility] | [place] [address] | gastrointestinal | | | | [place] [address] | [phone] | tract (Primary Dx); | | | | [phone] | | Chronic low back | | [...] Aura Upton is a 52-year-old woman from [place], [place] who h as 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 Tai Stanton of the [facility] April 28, 2012. ACTIVE DIAGNOSES: 1. Presentation with biliary colic in March of 2012 status post cholecystectomy and live r biopsy by Dr. Brandon Garcia March 29, 2012, pathological specimen [id number], analyzed by Dr. Bowers of [facility] and was notable for a poorly-differentiated adenoca rcinoma of the gallbladder. Liver biopsy demonstrated mild portal inflammation. 2. On April 28, 2012, she successfully underwent an R0 resection by Dr. Tai Stanton at [facility], pathological specimen [id number] was notable for the absence of any residual carcinoma within the gallbladder bed. However, 2/8 regional ly mph nodes contained regionally metastatic disease. 3. Consultation by Dr. Elva Grey of the [facility] on May returned the recommendation for adjuvant chemoradiation therapy following [id number] as follows: Capecitabine at 750 mg/m sq [...] [address] | | | | | | [place] [address] | | | | | | [phone] | | | | | | | [...] + | MISCELLANEOUS LAB | | | [phone] | + +---------+ + + | MISCELANIOUS LAB | | | [phone] | + +---------+ + + CA 19-9, [...] | | | | | | [place] [address] | | | | + + + + + + + + | Specimen | + + | Blood specimen | | (specimen) | + + + + + + + | Performing | Address | City/State/Zipcode | Phone Number | | Organization | | | | + + + + + | [facility] | [address] | [place] [address] | [phone] | + + + + + CEA [...] + | [facility] | [address] | [place], [place] | [phone] | | [facility] | | [address] | | | - LABORATORY | | | | + + + + + | [facility] | [address] | [place], [place] | | | [facility] | | [address] [place] [address] | | | - LABORATORY | | [...] + | [facility] | [address] | [place] | [phone] | | [facility] | | [address] | | | - LABORATORY | | | | + + + + + | [facility] | [address] | [place] | | | [facility] | | [address], [facility] | | | - [...] mL/min/1.73m2 | [facility] | | | IRISH | RATE,ESTIMATED | | MEDICAL | | | | mL/min/1.26i8Wnpc than | | CENTER - | | [...] + | [facility] | [address] | [place] | [phone] | | [facility] | | [address] | | | - LABORATORY | | | | + + + + + | [facility] | [address] | [place] | | | [facility] | | [address] | | | - [...] + | [facility] | [address] | [place], [place] | [phone] | | [facility] | | [address] | | | - LABORATORY | | | | + + + + + | [facility] | [address] | [place], [place] | | | [facility] | | [address], [facility] | | | - [...] + | [facility] | [address] | [place], [place] | [phone] | | [facility] | | [address] | | | - LABORATORY | | | | + + + + + | [facility] | [address] | [place] | | | [facility] | | [address], [facility] | | | - [...] mL/min/1.73m2 | [facility] | | | IRISH | RATE,ESTIMATED | | MEDICAL | | | | mL/min/1.60m3Lxuz than | | CENTER - | | [...] [address] | [place] | [phone] | | [facility] | | [address] | | | - LABORATORY | | | | + + + + + | [facility] | [address] | [place] | | | [facility] | | [address], [facility] | | | - [...] + | [facility] | [address] | [place], [place] | [phone] | | [facility] | | [address] | | | - LABORATORY | | | | + + + + + | [facility] | [address] | [place], [place] | | | [facility] | | [address], [facility] | | | - [...] [address] | [place] | [phone] | | [facility] | | [address] | | | - LABORATORY | | | | + + + + + | [facility] | [address] | [place], [place] | | | [facility] | | [address], [facility] | | | - [...] | | | | | | [place] [address] | | | | + + + [...] [address] | [place] [address] | [phone] | + + + + + documented in this encounter Visit Diagnoses + + | Diagnosis | + + | Personal history of malignant neoplasm of other site in gastrointestinal tract - | | Primary | + + | Chronic low back pain Lumbago | + + documented in this encounter
--- OUTSIDE RECORDS SUMMARY | ~2019-06-06 | XMS | Encounter Summary ---
Demographics + + + | Address | [address] | | | [place] [address] | + + + | Home Phone [...] + | Author | [facility] | | | and Eduardoana | + + + | Organization | [facility] | | | and Eduardoana | + + + | Address | Unknown | + + + | Phone | Unavailable | + + + Support + + + + + | Name | Relationship | Address | Phone | + + + + + | Poncho Oquendo | ECON | [address] | | | | | [place] | | | | | [address] | | + + + + + | Marta Upton | ECON | [place] | | | | | [address] | | + + + + + Care Team Providers + +------+ + | Care Organisation And Methods Analyst Name | Role | Phone | + +------+ + | Valeriy Carmona DO | PCP | | + +------+ + Encounter Details +--------+ + + + + | Date | Type | Department | Care Team | Description | +--------+ + + + + | 12/17/ | Hospital | [facility] | [facility], | Gallbladder cancer, | | 2015 | Encounter | MED CTR CHEMO | Epifanio Soler MD [address] | carcinoma (HCC) | | | | INFUSION [address] | [address] [place] | (Primary Dx); | | | | [place], | [place] [address] | Carcinoma of gall | | | | [place] [address] | [phone] | bladder (HCC); | | | | [phone] | | Neoplasm related | | | [...] [address] | | | | | | [place] [address] | | | | | | [phone] | | | | | | | [...] [address] | [place] | [phone] | | [facility] | | [address] | | | - LABORATORY | | [...] | 0.66 | 0.60 - 1.30 | [facility] | | | | | mg/dL [...] mL/min/1.73m2 | [facility] | | | [place] | RATE,ESTIMATED | | MEDICAL | | | | mL/min/1.81u3Bfjg than | | CENTER - | | [...] [address] | [place] | [phone] | | [facility] | | [address] | | | - LABORATORY | | [...] [address] | [place] | [phone] | | [facility] | | [address] | | | - LABORATORY | | [...] | | | | | | [place] [address] | | | | + + + + + + + + | Specimen | + + | Blood specimen | | (specimen) | + + + + + + + | Performing | Address | City/State/Zipcode | Phone Number | | Organization | | | | + + + + + | [facility] | [address] | [place] [address] | [phone] | + + + + + [place] [...] + | [facility] | [address] | [place] | [phone] | | [facility] | | [address] | | | - LABORATORY | | [...]
--- OUTSIDE RECORDS SUMMARY | ~2019-06-06 | XMS | Encounter Summary ---
Demographics + + + | Address | [address] | | | [place] [address] | + + + | Home Phone [...] Providers + +------+ + | Care Freight Adjuster Name | Role | Phone | [...] Visit | Medicine Clinic at | A, CHIEF ENGINEER'S HELPER [address] | (Primary Dx) | | | | [facility] 4th Floor [address] | | | | | [address] | [place], [place] | | | | | Mailcode: CH4S | [address] | | | | | [facility] | | | | | | and Healing, | | | | | | Building 1,4th Floor | | | | | | [place], [place] | | | | | | [address] | | | | | | [phone] | | | +--------+---------+ + + + [...]
--- OUTSIDE RECORDS SUMMARY | ~2019-06-06 | XMS | Encounter Summary ---
Demographics + + + | Address | [address] | | | [place] [address] | + + + | Home Phone [...] | Author | [facility] | | | and Eduardoana | + + + | Organization | [facility] | | | and Eduardoana | + + + | Address | Unknown | + + + | Phone | Unavailable | + + + Support + + + + + | Name | Relationship | Address | Phone | + + + + + | Poncho Oquendo | ECON | [address] | | | | | [facility] [place] [place] | | | | | [address] | | + + + + + | Marta Upton | ECON | [place] | | | | | [address] | | + + + + + Care Team Providers + +------+ + | Care Crayon Molding Machine Operator Name | Role | Phone [...] + + | 04/26/ | Hospital | [facility] | | Gallbladder cancer, | | 2020 | Encounter | [facility] | | carcinoma (HCC); | | | | [facility]ENTER [facility] | | Obstruction of left | | | | [address] | | ureter | | | | [place] | | | | | | [address] | | | | | | [phone] | | | +--------+ + + + [...] lasts more than a day, a fever [id number] (38 C), or trouble urinating. Date Last Reviewed: 02/15/201619993840-5241 [employer] [place] [address]. All righ ts reserved. This information is [...] out of the urethra Date Last Reviewed: 02/15/201619998360-[address] [employer] [place] [address], [place] [address]. All righ ts reserved. This information is [...] [facility] | | | | | | [place] [address] | | | | | | [phone] | | | | | | | [...]
--- OUTSIDE RECORDS SUMMARY | ~2019-06-06 | XMS | Encounter Summary ---
Demographics + + + | Address | [address] | | | [place] [address] | + + + | Home Phone [...] Team Providers + +------+ + | Care Ship Propeller Finisher Name | Role | Phone | [...] | 2014 | | Clinics at | [place], [place] | | | | | [facility] | [address] | | | | | for Health and | | | | | | [address] | | | | | | [place], | | | | | | [place] [address] | | | | | | [phone] | | | +--------+ + + + [...]
--- OUTSIDE RECORDS SUMMARY | ~2019-06-06 | XMS | Encounter Summary ---
Demographics + + + | Address | [address] | | | [place] [address] | + + + | Home Phone [...] Team Providers + +------+ + | Care Refinery Operator Crude Unit Name | Role | [...] | | | Reconstructive | [place], | Septal Defect | | | | Services at [facility] | [place] [address] | | | | | [address] | [phone] | | | | | Mailcode: CH5E | | | | | | [facility] | | | | | | and Healing, | | | | | | Building [address], | | | | | | [place], [place] | | | | | | [address] | | | | | | [phone] | | | +--------+---------+ + + + [...] Neck Surgery [employer] [email or web address] documented in this encounte r Plan of [...]
--- OUTSIDE RECORDS SUMMARY | ~2019-06-06 | XMS | Encounter Summary ---
Demographics + + + | Address | [address] | | | [place] [address] | + + + | Home Phone [...] Author | [facility] | | | and Eduardoana | + + + | Organization | [facility] | | | and Eduardoana | + + + | Address | Unknown | + + + | Phone | Unavailable | + + + Support + + + + + | Name | Relationship | Address | Phone | + + + + + | Poncho Oquendo | ECON | [address] | | | | | [place] | | | | | [address] | | + + + + + | Marta Upton | ECON | [place] | | | | | [address] | | + + + + + Care Team Providers + +------+ + | Care Terminal System Operator Name | Role | Phone | [...] | | | ONCOLOGY CLINIC [address] | [facility] | | | | | [facility] | [place] [address] | | | | | [place] [address] | [phone] | | | | | [phone] | | | +--------+ + + + [...] | | | | | | [facility] [address] | | | | | | [phone] | | | | | | | | +--------+---------+ + + + documented as of this encounter Visit Diagnoses Not on filedocumented in this encounter"
--- OUTSIDE RECORDS SUMMARY | ~2019-06-06 | XMS | Encounter Summary ---
Demographics + + + | Address | [address] | | | [place] [address] | + + + | Home Phone [...] | Author | [facility] | | | and dEuardoana | + + + | Organization | [facility] | | | and Eduardoana | + + + | Address | Unknown | + + + | Phone | Unavailable | + + + Support + + + + + | Name | Relationship | Address | Phone | + + + + + | Poncho Oquendo | ECON | [address] | | | | | [place] | | | | | [address] | | + + + + + | Marta Upton | ECON | [place] | | | | | [address] | | + + + + + Care Team Providers + +------+ + | Care Commissioning Engineer Name | Role | Phone | + +------+ + | Valeriy Carmona DO | PCP | | + +------+ + Encounter Details +--------+ + + + + | Date | Type | Department | Care Team | Description | +--------+ + + + + | 07/30/ | Orders Only | [facility] | Marcelina Johnson, | | | 2016 | | MED CTR CHEMO | RN | | | | | INFUSION [address] | | | | | | [place], | | | | | | [place] [address] | | | | | | [phone] | | | +--------+ + + + [...] | | | | | [place] [address] | | | | | | [phone] | | | | | | | | +--------+---------+ + + + documented as of this encounter Visit Diagnoses Not on filedocumented in this encounter"
--- OUTSIDE RECORDS SUMMARY | ~2019-06-06 | XMS | Encounter Summary ---
Demographics + + + | Address | [address] | | | [place] [address] | + + + | Home Phone [...] | Author | [facility] | | | and Eduardoana | + + + | Organization | [facility] | | | and Eduardoana | + + + | Address | Unknown | + + + | Phone | Unavailable | + + + Support + + + + + | Name | Relationship | Address | Phone | + + + + + | Poncho Oquendo | ECON | [address] | | | | | [place] | | | | | [address] | | + + + + + | Marta Upton | ECON | [place] | | | | | [address] | | + + + + + Care Team Providers + +------+ + | Care Farrowing Manager Name | Role | Phone | [...] + | 08/04/ | Orders Only | [facility] | [facility], | Community acquired | | 2018 | | [facility] | Epifanio Soler MD [address] | pneumonia of right | | | | ONCOLOGY CLINIC [address] | [address] [place] | lower lobe of lung | | | | [address] [place] | [place] [address] | ([facility]) (Primary Dx) | | | | [place] [address] | [phone] | | | | | [phone] | | | +--------+ + + + [...] [address] | | | | | | [place] [address] | | | | | | [phone] | | | | | | | | +--------+---------+ + + + documented as of this encounter Visit Diagnoses + + | Diagnosis | + + | Community acquired pneumonia of right lower lobe of lung (HCC) - Primary | + + documented in this encounter"
--- OUTSIDE RECORDS SUMMARY | ~2019-06-06 | XMS | Encounter Summary ---
Demographics + + + | Address | [address] | | | [place] [address] | + + + | Home Phone [...] + | Author | [facility] | | | and Eduardoana | + + + | Organization | [facility] | | | and Eduardoana | + + + | Address | Unknown | + + + | Phone | Unavailable | + + + Support + + + + + | Name | Relationship | Address | Phone | + + + + + | Poncho Oquendo | ECON | [address] | | | | | [place] | | | | | [address] | | + + + + + | Marta Upton | ECON | [place] | | | | | [address] | | + + + + + Care Team Providers + +------+ + | Care Golf Course Starter Name | Role | Phone | + [...] | | | | | [facility] | [place] [address] | | | | | [place] [address] | [phone] | | | | | [phone] | | | +--------+ + + + [...] | | | | | [facility] [address] | | | | | | [phone] | | | | | | | | +--------+---------+ + + + documented as of this encounter Visit Diagnoses Not on filedocumented in this encounter"
--- OUTSIDE RECORDS SUMMARY | ~2019-06-06 | XMS | Encounter Summary ---
Demographics + + + | Address | [address] | | | [place] [address] | + + + | Home Phone [...] Providers + +------+ + | Care Supervisor Wood Room Name | Role | Phone | [...] | | 2012 | | Center at [facility] [address] | [address] | | | | | [address] [facility] | [facility] | | | | | for Health and | [place], [place] | | | | | [facility], [facility] | [address] | | | | | [place], [place] | [phone] | | | | | [address] | | | | | | [phone] | | | +--------+ + + + [...]
--- OUTSIDE RECORDS SUMMARY | ~2019-06-06 | XMS | Encounter Summary ---
Demographics + + + | Address | [address] | | | [place] [address] | + + + | Home Phone [...] Team Providers + +------+ + | Care Trade Manager Name | Role | Phone | [...] | | 2014 | | [facility] | [place], [place] | | | | | [address] | [address] | | | | | [address] | | | | | | [place], [facility] [facility] | | | | | | [place], [place] | | | | | | [address] | | | | | | [phone] | | | +--------+ + + + [...]
--- OUTSIDE RECORDS SUMMARY | ~2019-06-06 | XMS | Encounter Summary ---
Demographics + + + | Address | [address] | | | [place] [address] | + + + | Home Phone | | + + + | Preferred Language | Unknown | + + + | Marital Status | | + + + | Latter-Day Affiliation | Unknown | + + + | Race | Unknown | + + + | Ethnic Group | Unknown | + + + Author + + + | Author | [facility] | | | and Eduardoana | + + + | Organization | [facility] | | | and Eduardoana | + + + | Address | Unknown | + + + | Phone | Unavailable | + + + Support + + + + + | Name | Relationship | Address | Phone | + + + + + | Poncho Oquendo | ECON | [address] | | | | | [facility] [place] | | | | | [address] | | + + + + + | Marta Upton | ECON | [place], [place] | | | | | [address] | | + + + + + Care Team Providers + +------+ + | Care Acquisitions Logistics Analyst Name | Role | Phone | + +------+ + PCP | Unavailable | + +------+ + Encounter Details +--------+ + + + + | Date | Type | Department | Care Team | Description | +--------+ + + + + | 07/13/ | Hospital | [facility] | | | | 2012 - | Encounter | MED CTR CANCER | | | | | | CENTER [address] | | | | 07/14/ | | [place] | | | | 2012 | | [address] | | | | | | [phone] | | | +--------+ + + + [...] [facility] | | | | | | [place] [address] | | | | | | [phone] | | | | | | | [...] + | [facility] | [address] | [place], [place] | [phone] | | [facility] | | [address] | | | - LABORATORY | | | | + + + + + | [facility] | [address] | [place] | | | [facility] | | [address] [place] [address] | | | - LABORATORY | | [...] [address] | [place] | [phone] | | [facility] | | [address] | | | - LABORATORY | | | | + + + + + | [facility] | [address] | [place] | | | [facility] | | [address] | | | - [...] + | [facility] | [address] | [place] | [phone] | | [facility] | | [address] | | | - LABORATORY | | | | + + + + + | [facility] | [address] | [place], [place] | | | [facility] | | [address] | | | - LABORATORY [...] [address] | [place] | [phone] | | [facility] | | [address] | | | - LABORATORY | | | | + + + + + | [facility] | [address] | [place] | | | [facility] | | [address] | | | - [...] | >60Comment: For | >60 mL/min/A | [facility] | | | GFR | [...] + | [facility] | [address] | [place] | [phone] | | [facility] | | [address] | | | - LABORATORY | | | | + + + + + | [facility] | [address] | [place] | | | [facility] | | [address], [facility] | | | [...] + | [facility] | [address] | [place], [place] | [phone] | | [facility] | | [address] | | | - LABORATORY | | | | + + + + + | [facility] | [address] | [place], [place] | | | [facility] | | [facility], [facility] | | [...] + | [facility] | [address] | [place] | [phone] | | [facility] | | [address] | | | - LABORATORY | | | | + + + + + | [facility] | [address] | [place] | | | [facility] | | [address], [facility] | | | [...] | >60Comment: For | >60 mL/min/A | [facility] | | | GFR | [...] + | [facility] | [address] | [place] | [phone] | | [facility] | | [address] | | | - LABORATORY | | | | + + + + + | [facility] | [address] | [place], [place] | | | [facility] | | [id number], [facility] | | | [...] + | [facility] | [address] | [place] | [phone] | | [facility] | | [address] | | | - LABORATORY | | | | + + + + + | [facility] | [address] | [place] | | | [facility] | | [id number], [facility] | | | - LABORATORY | | | | + + + + + documented in this encounter Visit Diagnoses Not on filedocumented in this encounter"
--- OUTSIDE RECORDS SUMMARY | ~2019-06-06 | XMS | Encounter Summary ---
Demographics + + + | Address | [address] | | | [place] [address] | + + + | Home Phone [...] Providers + +------+ + | Care Group Controller Name | Role | Phone | [...] [facility] [address] | [address] | | | | | HIEN [facility] | [facility] | | | | | for [facility] and | [place], [place] | | | | | [facility], [place] [address] | [address] | | | | | [place], [place] | [phone] | | | | | [address] | | | | | | [phone] | | | +--------+ + + + [...]
--- OUTSIDE RECORDS SUMMARY | ~2019-06-06 | XMS | Encounter Summary ---
Demographics + + + | Address | [address] | | | [place] [address] | + + + | Home Phone [...] Author | [facility] | | | and Eduardoana | + + + | Organization | [facility] | | | and Eduardoana | + + + | Address | Unknown | + + + | Phone | Unavailable | + + + Support + + + + + | Name | Relationship | Address | Phone | + + + + + | Poncho Oquendo | ECON | [address] | | | | | [place] | | | | | [address] | | + + + + + | Marta Upton | ECON | [place] | | | | | [address] | | + + + + + Care Team Providers + +------+ + | Care Primary Special Educator Name | Role | Phone | [...] | | | | | | [place] [address] | | | | | | [phone] | | | +--------+ + + + [...] | | | | | [place] [address] | | | | | | [phone] | | | | | | | | +--------+---------+ + + + documented as of this encounter Visit Diagnoses Not on filedocumented in this encounter"
--- OUTSIDE RECORDS SUMMARY | ~2019-06-06 | XMS | Encounter Summary ---
Demographics + + + | Address | [address] | | | [place] [address] | + + + | Home Phone [...] | Author | [facility] | | | and Eduardo[place] | + + + | Organization | [facility] | | | and Eduardo[place] | + + + | Address | Unknown | + + + | Phone | Unavailable | + + + Support + + + + + | Name | Relationship | Address | Phone | + + + + + | Poncho Oquendo | ECON | [address] | | | | | [place] | | | | | [address] | | + + + + + | Marta Upton | ECON | [place] | | | | | [address] | | + + + + + Care Team Providers + +------+ + | Care Logger Name | Role | Phone | + [...] | | | | | Procedures | [address] | [place] | | | | | PA OFFICE | Phone: | [phone] Phone: | | | | | OUTPATIENT | [phone] | [phone] | | | | | VISIT 25 | Fax: | Fax: | | | | | MINUTES | [phone] | [phone] | +--------+--------+ + + + + Encounter Details +--------+ + + + + | Date | Type | Department | Care Team | Description | +--------+ + + + + | 12/17/ | Hospital | [facility] | Reinaldo, | Gallbladder cancer, | | 2015 | Encounter | [facility] | Chad Soler MD [address] | carcinoma (HCC) | | | | ONCOLOGY CLINIC [address] [place] | (Primary Dx) | | | | [address] [place] | [place] [address] | | | | | [place] [address] | [phone] | | | | | [phone] | | | +--------+ + + + [...] nt from the original. Hematology/Oncology Progress Note [facility] Pt. Name/Age/: Aura Upton 54 y.o. 1960 Med. Record Number: [id number] Date of admission: 12/17/2014 Identifying Statement: Aura Upton is a 54 y.o. female from [address] [place] [address] with Recurrent Cholangiocarcinoma. The patient chart and [...] Brandon Garcia March 29, 2012, pathological specimen [id number], analyzed by Dr. Bowers of [facility] and was notable for a poorly-differentiated adenoc arcinoma of the gallbladder. Liver biopsy demonstrated mild portal inflammation. 2. On April 28, 2012, she successfully underwent an R0 resection by Dr. Tai Stanton at [facility], pathological specimen [id number] was notable for the absence of any residual carcinoma within the gallbladder bed. However, 2/8 regional lym ph nodes contained regionally metastatic disease. 3. Consultation by Dr. Elva Grey of the [facility] on May returned the recommendation for adjuvant chemoradiation therapy following [id number] as follows: Capecitabine at 750 mg/m sq [...] staging by Dr. Oziel Casillas of the [facility]. Pathological analysis was notable for [...] recommendations of Dr. Richie Thayer of the [facility] with gemcitabine at 1000 mg per meter squared on day one and day 8 w ith cisplatin 25 mg meter squared on day one and day 8 of a Q 21 day cycle beginning on July 26, 2014 complicated by grade 3 neutropenia and grade [address]. [address] scan of the chest, abdomen and pelvis that [facility] on September 16, 2014 demonstrated no radiographic evidence of disease. 11. Completion of 6 cycles of cisplatin/gemcitabine chemotherapy at the [facility] in [place], [place] on November 29, 2014. 12. Repeat [...] will see Dr. Richie Thayer at the [facility]. Review of Systems: Constitutional: Reports [...] this chart may have been created with iwoca voice recognition software. Occasi onal wrong-word or [...] 2019 | Visit | | DO [address] | | | | | | [place] [address] | | | | | | [phone] | | | | | | | [...]
--- OUTSIDE RECORDS SUMMARY | ~2019-06-06 | XMS | Encounter Summary ---
Demographics + + + | Address | [address] | | | [place] [address] | + + + | Home Phone [...] Team Providers + +------+ + | Care Shipping Room Helper Name | Role | Phone | [...] cancer | [address] | [address] [facility] | | | | | ([facility]) | [facility] | [facility] | | | | | Procedures | Rd | Rd [place], | | | | | REQUEST TO | [place], [place] | [place] | | | | | SURGERY | [address] | [address] | | | | | GENERAL ADMINISTRATOR | Phone: | Phone: | | | | | CA RESEC | [phone] | [phone] | | | | | LIVER,PART | Fax: | Fax: | | | | | LOBECTOMY | [phone] | [phone] | | | | | CA REMOVE | | | | | | | ABD LYMPH | | | | | | | NODES RAD | | | | | | | REGNL CA | | | | | | | [...] | | | cancer | [address] | [address] | | | | | (HCC) | Surendra Carreon | Neal HIDALGO | | | | | Procedures | Rd | Hospital, | | | | | CT CHEST, | [place], [place] | 10th Floor | | | | | ABDOMEN & | [address] | [place], [place] | | | | | PELVIS W IV | Phone: | [phone] | | | | | CONTRAST | [phone] | Phone: | | | | | [address], [address] | Fax: | [phone] | | | | | | [phone] | Fax: | | | | | | | [phone] | +--------+--------+ + + + + Reason [...] | | | | | cancer | [facility] | [address] | | | | | (HCC) | SURGICAL | [facility]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 | CLINIC [address] | [address] [place], | | | | | ca | [address] | [place] | | | | | | AVE | [address] | | | | | | [place], | Phone: | | | | | | [place] [address] | [phone] | | | | | | Phone: | Fax: | | | | | | [phone] | [phone] | | | | | | Fax: | | | | | | | [phone] | | +--------+--------+ + + + + Encounter Details +--------+---------+ + + + | Date | Type | Department | Care Team | Description | +--------+---------+ + + + | 04/12/ | Office | [facility] | Tai Stanton, | Gallbladder cancer | | 2012 | Visit | Center at [facility] [address] | [address] | (HCC) (Primary Dx) | | | | [address] | [facility] | | | | | for [facility] and | [place], [place] | | | | | [facility] 2 | [address] | | | | | [place], [place] | [phone] | | | | | [address] | | | | | | [phone] | | | +--------+---------+ + + + [...] - 04/12/2012 5:30 PM PSTPATIENT SURGERY INFORMATION [facility] General Surgery Office Toll-free: [facility] 0188 Surgery Date: April 28, 2012 Procedure: Segment [...] the surgery. Please see the list below, [facility] has a list of products that contain [...] from anyone by 7 pm please call [phone]. PARKING Parking for patients is available underneath the [facility] building. Parking is also available in the [facility] Parking structure located across from the emergency depart ment; patient parking available on level 1 and 3. Metered parking is available on the [facility]. CHECKING IN FOR SURGERY Hospital Admission (in-patient): Admitting Desk 9th floor of [facility] TRANSPORTATION Day Surgery: If you have [...] Please notify the general surgery office at [phone] as soon as possible should you nee [...] prior to your surgery. PRODUCTS CONTAINING ASPIRIN Winsome-Pritchett, Anacin, Anexsia with Codeine, Andynos, Aspirin, Aspirin suppositories, Ascrip tin, Aspergum, Axotal, B-A-C, Baby Aspirin, Mahad, BC Powder, Bexophene, Buffaprin, Bufferin , Buffinol, Cama-Arthritis Strength, Congespirin, [place], Coricidin, Damason, Darvon, Dristan, Elen-Gesic, Digel, Dolprin #3 Tablets, Donatab, Doxaphene, Duragesic, Easprin, Ecotrin, Emag rin Forte, Emiprin, Emprazil, Equagesic, Equazine M, Excedrin, Fiogesic, Fiorgen PH, Fiorice t, Fiorinal, 4-Way Cold Tablet Gemnisyn, Indocin, Liquprin, Lortab ASA, Magnaprin, Marnal, Meprobamate, Midol, Momentum, N orgesic, [place], Orphengesic, Pabalate, P-A-C, Percodan, Presalin, Robaxasil, Roxiprin, Cruz eto, Salocol SK-65 Compound, Sine-Aid, Sine-Off,, [place], Supac, Talwin Compound, Trigesic, Tolectin , Traiminicin, Vanquish, ZORprin, Zomax PRODUCTS CONTAINING IBUPROFEN Advil, Aleve, Haltran, Medipren, Midol, Motrin, Naproxyn, Nuprin, Rufen OTHER PRODUCTS WHICH MAY PROMOTE BLEEDING Vitamin E, Gingko Biloba, Marine Fatty Acids, [place]-3 Fish Oil SupplementsElectronically si gned by Amy Dinh RN at 04/12/2012 5:31 PM PST documented in this encounter Progress Notes Tai Stanton MD - 04/18/2012 11:09 AM PSTI saw and evaluated the patient. I agree with the findings and the plan of care as documented in the resident s note. Tai Stanton M.D. [facility] [employer] ([facility]) Professor and Vice-Floor Coverings Installer of Surgery The [facility] Chair for Pancreatic Disease Research Pancreatic/ HepatoBiliary and Foregut Working Groups Mail Code [id number] [address] [place], [place]. [address] email: [email or web address] Mackenzie Troy MD - 04/12/2012 6:05 PM PST ID: Aura Uptno CC: Referral for treatment of gall-bladder cancer found post lap analy HPI: Mrs Upton is a 51yo woman w/ h/o chronic back pain who is being referred by her georgina geon at [facility] for incidental finding gallbladder mass during [...] a la paroscopic Cholecystectomy performed at [facility] which confirmed 3 gallstones an d an [...] cancers Father DM, CAD SH: [place] , Denies tobacco use, very [...] Latest Range: 0.60-1.10 mg/dL 0.70 EGFR - [place] No range found >60 EGFR NON -[place] No range found >60 GLUCOSE, PLASMA (LAB) [...] Farr MD Chief Resident Department of Surgery [facility] documented in this en [...] | | + +---------+ + + | [facility] DEPARTMENT OF | | [...] by | | | | | | [facility],[address] | | | | | | [address], [facility],[place] | | | | | | [address] | | | | | | [phone]. | | | | | | [...] [facility] | [address] | [place], [place] | | | [facility] | | [address] | | + + + + + [...] [place] | | | | | | [facility] [address] | | | | | | [phone]. | | | | | | Lala [...] [facility] | [address] | [place], [place] | | | [facility] | | [address] | | + + + + + [...] [facility] | [address] | [place] [address] | | | GAVIN, SAM | NEAL [...] | | | LABORATORY | | | [place] | | | SERVICES, | | | [...] [facility] | [address] | [place] [address] | | | SERVICES, CENTER FOR | | | | | HEALTH + HEALING | | | | + + + + + documented in this encounter Visit Diagnoses + + | Diagnosis | + + | Gallbladder cancer (HCC) - Primary Malignant neoplasm of gallbladder | + + documented in this encounter
--- OUTSIDE RECORDS SUMMARY | ~2019-06-06 | XMS | Encounter Summary ---
Demographics + + + | Address | [address] | | | [place] [address] | + + + | Home Phone [...] Team Providers + +------+ + | Care Insurance Office Supervisor Name | Role | Phone | [...] | | 2012 | | Oncology at [facility] | [address] | | | | | [address] [address] | [place] [address] | | | | | Mailcode: CH7M | [place] [address] | | | | | [facility] | [phone] | | | | | and Healing, | | | | | | [place] [address] | | | | | | [place], [place] | | | | | | [address] | | | | | | [phone] | | | +--------+ + + + [...]
--- OUTSIDE RECORDS SUMMARY | ~2019-06-06 | XMS | Encounter Summary ---
Demographics + + + | Address | [address] | | | [place] [address] | + + + | Home Phone [...] Author | [facility] | | | and Eduardo[place] | + + + | Organization | [facility] | | | and [place]ardo[place] | + + + | Address | Unknown | + + + | Phone | Unavailable | + + + Support + + + + + | Name | Relationship | Address | Phone | + + + + + | Poncho Oquendo | ECON | [address] | | | | | [place] | | | | | [address] | | + + + + + | Marta Upton | ECON | [place] | | | | | [address] | | + + + + + Care Team Providers + +------+ + | Care Extension Clerk Name | Role | Phone | + +------+ + | Valeriy Carmona DO | PCP | | + +------+ + Encounter Details +--------+ + + + + | Date | Type | Department | Care Team | Description | +--------+ + + + + | 08/27/ | Hospital | [facility] | Valeriy Carmona, | Breast nodule | | 2016 | Encounter | MED CTR MAMMOGRAPHY | DO [address] | | | | | [address] | [place] [address] | | | | | [place], [place] | [phone] | | | | | [address] | | | | | | [phone] | [address] | | +--------+ [...] | | | | | [facility] [place] [address] | | | | | | [phone] | | | | | | | [...]
--- OUTSIDE RECORDS SUMMARY | ~2019-06-06 | XMS | Encounter Summary ---
Demographics + + + | Address | [address] | | | [place] [address] | + + + | Home Phone [...] | Author | [facility] | | | and [place]ardo[place] | + + + | Organization | [facility] | | | and [place]ardo[place] | + + + | Address | Unknown | + + + | Phone | Unavailable | + + + Support + + + + + | Name | Relationship | Address | Phone | + + + + + | Poncho Oquendo | ECON | [address] | | | | | [facility] [place] | | | | | [address] | | + + + + + | Marta Upton | ECON | [place], [place] | | | | | [address] | | + + + + + Care Team Providers + +------+ + | Care Partition Notcher Name | Role | Phone | + +------+ + | No, Physician | PCP | Unavailable | + +------+ + Encounter Details +--------+ + + + + | Date | Type | Department | Care Team | Description | +--------+ + + + + | 09/17/ | Hospital | [facility] | | | | 2013 | Encounter | MED CTR XRAY [address] | | | | | | [place] | | | | | | [place] [address] | | | | | | [phone] | | | +--------+ + + + [...] | | | | | [place] [address] | | | | | | [phone] | | | | | | | | +--------+---------+ + + + documented as of this encounter Visit Diagnoses Not on filedocumented in this encounter"
--- OUTSIDE RECORDS SUMMARY | ~2019-06-06 | XMS | Encounter Summary ---
Demographics + + + | Address | [address] | | | [place] [address] | + + + | Home Phone [...] Providers + +------+ + | Care Planning Consultant Name | Role | Phone | [...] 2014 | | [address] | [address] [facility] | LAPAROTOMY; TOTAL | | | | Rd [facility] | [facility] [address] | ABDOMINAL | | | | Hospital Admitting | [place], [place] | HYSTERECTOMY; | | | | Desk Located on the | [address] | BILATERAL | | | | 9th floor | [phone] | SALPINGO-OOPHORECTOM | | | | [place], [place] | | Y; OMENTECTOMY; LEFT | | | | [address] | | PELVIC AND | | | [...] DISCHARGE SUMMARY Author: Roger Guadalupe MD PGY1 ROUTE DELIVERY CLERK Attending Physician: Dr. Henderson Admission Date: 06/06/2014 [...] to Get Your Medications You need to merchandise pickup/receiving associate these prescriptions. We sent some of them to a specific pharmacy. Go t o these places to get your medications. [facility] - enoxaparin 40 mg/0.4 mL Syrg [address] [facility] [address] Hours: 8AM-9PM Mon-Fri; 9-5:30PM Sat-Sun You may [...] your provider, please call the [facility] clinic at [phone] during daytime hours. During evening or weekend hours, please call the [facility] paging [phone] directory assistance operator at [phone] and ask for the Warehouse Order Puller Oncology staff on-call. Reasons to call the [...] stable Discharging Physician: Roger Guadalupe MD PGY1 ROUTE DELIVERY CLERK Service Pager: [phone] Attending Physician: Dr. Henderson I saw and [...] assessment and plan. Roger Guadalupe MD PGY1 ROUTE DELIVERY CLERK Service Pager: [phone] I saw and evaluated the patient. I [...] Primary service notified. RAGHU DALY MD [facility] 14A [address] [facility], 4th Floor Mail Code: CH4P [place], [place] [address] Raghu Antony MD - 06/08/2014 [...] and recommendations with primary care team provider choirmaster/oncology. RAGHU DALY MD BILLING INFORMATION [facility] DEPARTMENT: [id number] Place of Service:- Inpatient Date of Service: 06/08/2014 CSN: [id number] Suggested Modifier: None Suggested CPT: 11589 - Daily mgmt epidural/subarachnoid drug administration Prolonged [...] assessment and plan. Roger Guadalupe MD PGY1 ROUTE DELIVERY CLERK Service Pager: [phone] I saw and evaluated the patient. I agree with the findings and the plan of care as shruthi ramirez in the resident s note. Patt Henderson M.D. Division of Gynecologic Oncology Department of Obstetrics and Gynecology Raghu Antony MD - 06/07/2014 9:26 AM PDTThis is late entry for 06/06/2014. Ms. Utpon had some low blo od pressure last night so we were not able to increase the epidural. We did do some educati on around using the PCEA button and pain is now better controlled. Ms. Upton has been se en this morning and is doing well (see separate note in EPIC). RAGHU DALY MD [facility] [address]A [address] [facility], 4th Floor Mail Code: CH4P [place], [place] [address] Raghu Antony MD - 06/07/2014 7:39 AM [...] 125 mL/hr intravenous CONTINUOUS 125 mL/hr (06/07/14 4998) Type: Epidural Rate: 4 mL/hour Anticoagulants: enoxaparin [...] team provider . RAGHU DALY MD [facility] [address]A [address] [facility], 4th Floor Mail Code: CH4P [place], [place] [address] BILLING INFORMATION [facility] DEPARTMENT: [id number] Place of Service:- Inpatient Date of Service: 06/07/2014 CSN: [id number] Suggested Modifier: GC - Resident Involved Suggested CPT: 98575 - Daily mgmt epidural/subarachnoid drug administration Prolonged [...] | Abdominal or | | | LAPAROSCOPY (STAPLE SIDE LASTER | ve | 7:27 AM | pelvic [...] + +--------+ + + + | NON STAPLE SIDE LASTER CYTOLOGY | Routin | 06/06/2014 | | [...] + + + | [facility] | [address] [facility] [address] | [place] [address] | | | SERVICES, CORE | PARK [...] + + + + | [facility] | [address] | [place] [address] | | | SERVICES, SAM | PARK [...] the MDRD equation recommended by the | [facility] | | National Kidney Disease Education Program. [...] LABORATORY | [address] | [place] [address] | | | SERVICES, CORE | PARK [...] [facility] | [address] | [place] [address] | | | SERVICES, CORE | PARK [...] [facility] | [address] | [place] [address] | | | SERVICES, CORE | PARK [...] + + + | [facility] [employer] | [address] | [place] [address] | | | SERVICES, CORE | [address] | | | + + + + + OPERATION RECORD (06/07/2014 8:30 AM PDT) + + | Transcriptions | + + | Miguel Seymour MD - 06/06/2014 12:48 PM PDT Date of Service: 06/06/2014 | | Attending Surgeon: Miguel Seymour MD Shuttle Operator(s): | | Poncho Arriola MD. Anesthesia: [...] 06/06/2014 11:52:24DT: 06/06/2014 12:48:01Job #: | | [id number] DEPARTMENT: [id number] STAPLE SIDE LASTER ONC [facility]: - | | IPDate of Service: 06/07/2014 : [id number] | | Modifier: NoneSuggested CPT: NoneSuggested Procedure [...] + + | [facility] | [address] | [place] [address] | | | SERVICES, SAM | NEAL [...] LABORATORY | [address] | [place] [address] | | | SERVICES, CORE | PARK [...] [facility] | [address] | [place] [address] | | | SERVICES, CORE | NEAL [...] [facility] | [address] | [place] [address] | | | SERVICES, CORE | PARK [...] + + + | [facility] [employer] | [address] | [place] [address] | | | SERVICES, CORE | [address] | | | + + + + + NON STAPLE SIDE LASTER CYTOLOGY (06/06/2014) + + + + + + | Component | Value | Ref Range | Performed | Pathologist | | | | | At | Signature | + + + + + + | NON-STAPLE SIDE LASTER | SOURCE OF SPECIMEN:A | | [facility] [...] San | | | | | | CT(ASCP)Blueprinting And Photocopy Supervisor | | | | | | Electronically [...] + + + + + | [facility] | [address] | [place] [address] | | | PATHOLOGY | [address] [...] | | | | | | corresponding [id number] | | | | | | B: [...] bed | | | | | | ([id number], slides E3-4). | | | | | [...] | | cs determined by [facility] | | | | | | laboratories. [...] | | | | | | s/pchemoXRT ([id number], | | | | | | [id number]); now with | | | | | [...] | | | | | | Manager Hotel | | | | | | sections [...] | | | | | | Manager Hotel | | | | | | sections [...] | | | | | sales representative gas service sections | | | | | | of #1 external | | | | | | excrescenceB7-8, #2 | | | | | | external | | | | | | excrescenceB9-10, entire | | | | | | #3 external | | | | | | [id number], | | | | | | sales representative gas service sections | | | | | | of del rio-brown | | | | | | excrescences from inner | | | | | | cyst cavwfkwassA38-69, | | | | | | additional sections of | | | | | | [id number], sales representative gas service | | | | | | sections [...] | | | | | sales representative gas service sections | | | | | | of right ovaryD6-9, | | | | | | sales representative gas service sections | | | | | | of external ovarian | | | | | | [id number], | | | | | | sales representative gas service sections | | | | | | [...] + | Performing | Address | City/State[facility] | Phone Number | | Organization | | | | + + + + + | [facility] | [address] | [place] [address] | | | PATHOLOGY | [address] [...]
--- OUTSIDE RECORDS SUMMARY | ~2019-06-06 | XMS | Encounter Summary ---
Demographics + + + | Address | [address] | | | [place] [address] | + + + | Home Phone [...] + | Author | [facility] | | | and Eduardoana | + + + | Organization | [facility] | | | and Eduardoana | + + + | Address | Unknown | + + + | Phone | Unavailable | + + + Support + + + + + | Name | Relationship | Address | Phone | + + + + + | Poncho Oquendo | ECON | [address] | | | | | [facility], [place] | | | | | [address] | | + + + + + | Marta Upton | ECON | [place], [place] | | | | | [address] | | + + + + + Care Team Providers + +------+ + | Care Dust Control Engineer Name | Role | Phone | + +------+ + PCP | Unavailable | + +------+ + Encounter Details +--------+ + + + + | Date | Type | Department | Care Team | Description | +--------+ + + + + | 05/05/ | Hospital | [facility] | Hakan Cherry | | | 2011 | Encounter | MED CTR XRAY [address] | [address] | | | | | [place] | [place], [place] | | | | | [place] [address] | [address] | | | | | [phone] | | | +--------+ + + + [...] | Visit | | DO [address] [facility] | | | | | | [place] [address] | | | | | | [phone] | | | | | | | [...] Performed At | + + + | [facility] Diagnostic Imaging Department | [facility] | | [address] [facility] | [facility] | | PROCEDURE NOTE LUMBAR FACET | [...] Transcribed Date/Time: 05/06/2011 17:17 | | | Machine Container Washer: <Electronically Signed by Hakan Field | | | MD Dilip> 05/14/11 1336 | | + + + + + | Procedure Note | + + | Edmundo, Rad Conversion - 03/23/2013 4:58 PM [facility] | | Diagnostic Imaging Department [address] [place] [address] | | PROCEDURE NOTE LUMBAR FACET INJECTION, [...] 17:08 | |Transcribed Date/Time: 05/06/2011 17:17 | |Machine Container Washer: | |<Electronically Signed by Hakan Cherry MD> [...]
--- OUTSIDE RECORDS SUMMARY | ~2019-06-06 | XMS | Encounter Summary ---
Demographics + + + | Address | [address] | | | [place] [address] | + + + | Home Phone [...] Team Providers + +------+ + | Care Alteration Worker Name | Role | Phone | [...] Pharmacy | | | | | | [address] | | | | | | [place], [place] | | | | | | [address] | | | | | | [phone] | | | +--------+ + + + [...]
--- OUTSIDE RECORDS SUMMARY | ~2019-06-06 | XMS | Encounter Summary ---
Demographics + + + | Address | [address] | | | [place] [address] | + + + | Home Phone [...] [facility] | | | and Eduardoana | + + + | Organization | [facility] | | | and Eduardoana | + + + | Address | Unknown | + + + | Phone | Unavailable | + + + Support + + + + + | Name | Relationship | Address | Phone | + + + + + | Poncho Oquendo | ECON | [address] | | | | | [facility] [place] | | | | | [address] | | + + + + + | Marta Upton | ECON | [place] | | | | | [address] | | + + + + + Care Team Providers + +------+ + | Care Edi Architect Name | Role | Phone | [...] | | renal and | OBED, | [place], [place] | | | | | ureteral | [place] | [address] Phone: | | | | | calculous | [address] | [phone] | | | | | obstruction | Phone: | Fax: | | | | | | [phone] | [phone] | | | | | | Fax: | | | | | | | [phone] | | +--------+--------+ + + + + Encounter Details +--------+---------+ + + + | Date | Type | Department | Care Team | Description | +--------+---------+ + + + | 11/21/ | Office | [facility] | Pedro Green, | Cholangiocarcinoma | | 2019 | Visit | UROLOGY [address] | DO [address] | (HCC) (Primary Dx); | | | | [address] | [place] [address] | Obstruction of left | | | | [place], [place] | [phone] | ureter | | | | [address] | | | | | | [phone] | | | +--------+---------+ + + + [...] encounter Patient Instructions Patient Instructions Kalina Hughes, Receiving Room Clerk - 11/21/2018 10:30 AM PDTPLAN IMAGING NEED [...] medical group clinic anesthesia and surgery. Location: [facility] ([address] [place] [address]) Time: The day before surgery someone from the hospital will call you to give you your arriv al time. Be advised, they will call you in the late afternoon or early evening. Please do not contact our office to find out your time of arrival. IF YOU HAVE A GOURMET COFFEE ATTENDANT You MUST receive a cardiac clearance from your share holder prior to surgery. A pre-admission (registration) appointment [...] IT OFF OR FAX IT TO US ([phone]) AT LEAST 2 WEEKS PRIOR TO SURGERY. MAKE SURE TO IN CLUDE TIME OFF NEEDED/WHEN YOU PLAN TO RETURN TO WORK. documented in this encounter Progress Notes Pedro Green DO - 11/21/2018 10:30 AM PDTFormatting of this note might be different fr om the original. [facility] Urology Primary Care Provider: No Physician [...] well. 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
--- OUTSIDE RECORDS SUMMARY | ~2019-06-06 | XMS | Encounter Summary ---
Demographics + + + | Address | [address] | | | [place] [address] | + + + | Home Phone [...] Author | [facility] | | | and Eduardoana | + + + | Organization | [facility] | | | and Eduardoana | + + + | Address | Unknown | + + + | Phone | Unavailable | + + + Support + + + + + | Name | Relationship | Address | Phone | + + + + + | Poncho Oquendo | ECON | [address] | | | | | [facility] [place] [place] | | | | | [address] | | + + + + + | Marta Upton | ECON | [place], [place] | | | | | [address] | | + + + + + [...] site in | | | | [address] [place] | [place] [address] | gastrointestinal | | | | [place] [address] | [phone] | tract (Primary Dx) | | | | [phone] | | | +--------+ + + + [...] | | | | | [place] [address] | | | | | | [phone] | | | | | | | [...] + + | Performing | Address | [facility] | Phone Number | | Organization | | | | + + + + + | [facility] | [address] | [place] | [phone] | | [facility] | | [address] | | | - LABORATORY | | | | + + + + + | [facility] | [address] | [place] | | | [facility] | | [address], [facility] | | [...] | | | | | | [place] [address] | | | | + + + [...] | [address] | [place] [address] | [phone] | + + + + + Lactate [...] + | [facility] | [address] | [place] | [phone] | | [facility] | | [address] | | | - LABORATORY | | | | + + + + + | [facility] | [address] | [place] | | | [facility] | | [address], [facility] | | [...] | | | FILTRATION | mL/min/1.73m2 | [facility] | | | TURKS AND CAICOS ISLANDER | RATE,ESTIMATED | | MEDICAL | | | | mL/min/1.81s4Lmub than | | CENTER - | | [...] PROVIDENCE | | | | | | [facility] | | | | [...] + | [facility] | [address] | [place] | [phone] | | [facility] | | [address] | | | - LABORATORY | | | | + + + + + | [facility] | [address] | [place] | | | [facility] | | [address] | | | - LABORATORY [...] + | [facility] | [address] | [place], [place] | [phone] | | [facility] | | [address] | | | - LABORATORY | | | | + + + + + | [facility] | [address] | [place], [place] | | | [facility] | | [address] | | | - LABORATORY | | | | + + + + + documented in this encounter Visit Diagnoses + + | Diagnosis | + + | Personal history of malignant neoplasm of other site in gastrointestinal tract - | | Primary | + + documented in this encounter"
--- OUTSIDE RECORDS SUMMARY | ~2019-06-06 | XMS | Encounter Summary ---
Demographics + + + | Address | [address] | | | [place] [address] | + + + | Home Phone [...] Author | [facility] | | | and Eduardoana | + + + | Organization | [facility] | | | and Eduardoana | + + + | Address | Unknown | + + + | Phone | Unavailable | + + + Support + + + + + | Name | Relationship | Address | Phone | + + + + + | Poncho Oquendo | ECON | [address] | | | | | [place] | | | | | [address] | | + + + + + | Marta Upton | ECON | [place] | | | | | [address] | | + + + + + Care Team Providers + +------+ + | Care Order Expediter Name | Role | Phone | [...] cancer, | | 2017 | | MED [facility] | Epifanio Soler MD [address] | carcinoma (HCC) | | | | ONCOLOGY CLINIC [address] [place] | | | | | [address] [place] | [place] [address] | | | | | [place] [address] | [phone] | | | | | [phone] | | | +--------+ + + + [...] [address] | | | | | | [place] [address] | | | | | | [phone] | | | | | | | | +--------+---------+ + + + documented as of this encounter Visit Diagnoses + + | Diagnosis | + + | Gallbladder cancer, carcinoma (HCC) Malignant neoplasm of gallbladder | + + documented in this encounter"
--- OUTSIDE RECORDS SUMMARY | ~2019-06-06 | XMS | Encounter Summary ---
Demographics + + + | Address | [address] | | | [place] [address] | + + + | Home Phone [...] Providers + +------+ + | Care Dental Coordinator Name | Role | Phone | + +------+ + PCP | Unavailable | + +------+ + Encounter Details +--------+ + + + + | Date | Type | Department | Care Team | Description | +--------+ + + + + | 04/07/ | Precinct Police Captain | Digestive Health | Tai Stanton, | Gallbladder cancer | | 2012 | | Center at [facility] [address] | [address] | (HCC) (Primary Dx) | | | | [address] [facility] | [facility] | | | | | for Health and | [place], [place] | | | | | [facility] [address] | [address] | | | | | [place], [place] | [phone] | | | | | [address] | | | | | | [phone] | | | +--------+ + + + [...] | | | | | | Institution: [facility] | | | | [facility] | | | | | [facility] [place] | | | | | | Lab,[place], [place] | | | | | | [id number] Accession | | | | | | Number: [id number] | | | | | | Collection [...] + + + + + | 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
--- OUTSIDE RECORDS SUMMARY | ~2019-06-06 | XMS | Encounter Summary ---
Demographics + + + | Address | [address] | | | [place] [address] | + + + | Home Phone [...] Providers + +------+ + | Care Senior Games Technician Name | Role | Phone | + +------+ + | Tomasa Wagner | PCP | | + +------+ + Encounter Details +--------+ + + + + | Date | Type | Department | Care Team | Description | +--------+ + + + + | 10/02/ | Abstract | Digestive Health | Tai Stanton, | | | 2012 | | Center at [facility] [address] | [address] | | | | | [address] [facility] | [facility] | | | | | for Health and | [place], [place] | | | | | [facility] [place] [address] | [address] | | | | | [place], [place] | [phone] | | | | | [address] | | | | | | [phone] | | | +--------+ + + + [...]
--- OUTSIDE RECORDS SUMMARY | ~2019-06-06 | XMS | Encounter Summary ---
Demographics + + + | Address | [address] | | | [place] [address] | + + + | Home Phone [...] + | Author | [facility] | | | and Eduardoana | + + + | Organization | [facility] | | | and Eduardoana | + + + | Address | Unknown | + + + | Phone | Unavailable | + + + Support + + + + + | Name | Relationship | Address | Phone | + + + + + | Poncho Oquendo | ECON | [address] | | | | | [facility] [place] | | | | | [address] | | + + + + + | Marta Upton | ECON | [place], [place] | | | | | [address] | | + + + + + Care Team Providers + +------+ + | Care Jamb Cutter Name | Role | Phone | + +------+ + | No, Physician | PCP | Unavailable | + +------+ + Encounter Details +--------+ + + + + | Date | Type | Department | Care Team | Description | +--------+ + + + + | 04/26/ | Hospital | [facility] | Pedro Green, | | | 2019 | Encounter | REGIONAL SURGERY | DO [address] | | | | | CENTER INTRA OP | [place] [address] | | | | | [address] | [phone] | | | | | [place], [place] | | | | | | [address] | | | | | | [phone] | | | +--------+ + + + [...] [address] | | | | | | [place] [address] | | | | | | [phone] | | | | | | | [...]
--- OUTSIDE RECORDS SUMMARY | ~2019-06-06 | XMS | Encounter Summary ---
Demographics + + + | Address | [address] | | | [place] [address] | + + + | Home Phone [...] Team Providers + +------+ + | Care Grinder Set Up Operator Thread Tool Name | Role | Phone | + [...] | | 2013 | | Center at [facility] [address] | [address] | | | | | [address] [facility] | Surendra Carreon | | | | | for Health and | [place], [place] | | | | | [facility] | [address] | | | | | [place], [place] | [phone] | | | | | [address] | | | | | | [phone] | | | +--------+ + + + [...]
--- OUTSIDE RECORDS SUMMARY | ~2019-06-06 | XMS | Encounter Summary ---
Demographics + + + | Address | [address] | | | [place] [address] | + + + | Home Phone [...] Providers + +------+ + | Care Freight Traffic Consultant Name | Role | Phone | + +------+ + PCP | Unavailable | + +------+ + Encounter Details +--------+ + + + + | Date | Type | Department | Care Team | Description | +--------+ + + + + | 03/22/ | Results | | Other, Faculty | | | 2003 | Only | | [phone] | | +--------+ + + + + [...] | | | | | please call [phone] | | | | | | [phone] | | | | | | Diagnostician: [...] + + | Ordered by Yaw Marcelo PROCESSOR HELPER | | + + + + + + + + | Performing | Address | City/State/Zipcode | Phone Number | | Organization | | | | + + + + + | [facility] | [facility] | [place] [address] | | | [facility] | [address] | | | | | [address]VE[address] | | | + + + + + documented in this encounter Visit Diagnoses Not on filedocumented in this encounter"
--- OUTSIDE RECORDS SUMMARY | ~2019-06-06 | XMS | Encounter Summary ---
Demographics + + + | Address | [address] | | | [place] [address] | + + + | Home Phone [...] | [facility] | | | and Eduardoana | + + + | Organization | [facility] | | | and Eduardoana | + + + | Address | Unknown | + + + | Phone | Unavailable | + + + Support + + + + + | Name | Relationship | Address | Phone | + + + + + | Poncho Oquendo | ECON | [address] | | | | | [place] | | | | | [address] | | + + + + + | Marta Upton | ECON | [place] | | | | | [address] | | + + + + + Care Team Providers + +------+ + | Care Volleyball Commentator Name | Role | Phone | [...] + | 10/10/ | Telephone | [facility] | Reinaldo, | Lab Results | | 2018 | | MED [facility] | Epifanio Soler MD [address] | | | | | ONCOLOGY CLINIC [address] | [facility] | | | | | [address] | [place] [address] | | | | | [place] [address] | [phone] | | | | | [phone] | | | +--------+ + + + [...] | | | | | | [place] [address] | | | | | | [phone] | | | | | | | | +--------+---------+ + + + documented as of this encounter Visit Diagnoses Not on filedocumented in this encounter"
--- OUTSIDE RECORDS SUMMARY | ~2019-06-06 | XMS | Encounter Summary ---
Demographics + + + | Address | [address] | | | [place] [address] | + + + | Home Phone [...] | Author | [facility] | | | and Eduardoana | + + + | Organization | [facility] | | | and Eduardoana | + + + | Address | Unknown | + + + | Phone | Unavailable | + + + Support + + + + + | Name | Relationship | Address | Phone | + + + + + | Poncho Oquendo | ECON | [address] | | | | | [place] | | | | | [address] | | + + + + + | Marta Upton | ECON | [place] | | | | | [address] | | + + + + + Care Team Providers + +------+ + | Care Locate Technician Name | Role | Phone | [...] Soler MD [address] | ([facility]) (Primary Dx) | | | | ONCOLOGY [address] | [address] [place] | | | | | [employer], | [place] [address] | | | | | [place] [address] | [phone] | | | | | [phone] | | | +--------+ + + + [...] [address] | | | | | | [place] [address] | | | | | | [phone] | | | | | | | | +--------+---------+ + + + documented as of this encounter Visit Diagnoses + + | Diagnosis | + + | 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
--- OUTSIDE RECORDS SUMMARY | ~2019-06-06 | XMS | Encounter Summary ---
Demographics + + + | Address | [address] | | | [place] [address] | + + + | Home Phone [...] + +------+ + | Care Health And Nutrition Specialist Name | Role | Phone | [...] | 2015 | Encounter | [facility] | [address] | Appointment | | | | [address] | Surendra Velma | | | | | [address] | [place], [place] | | | | | Pavilion, [address] [place] [address] | [address] | | | | | [place], [place] | [phone] | | | | | [address] | | | | | | [phone] | | | +--------+ + + + [...]
--- OUTSIDE RECORDS SUMMARY | ~2019-06-06 | XMS | Encounter Summary ---
Demographics + + + | Address | [address] | | | [place] [address] | + + + | Home Phone [...] Providers + +------+ + | Care Tool Shaper Set Up Operator Name | Role | Phone | + +------+ + | Tmoasa Wagner | PCP | | + +------+ + Reason for Visit + + + | Reason | Comments | + + + | Medical Records | [facility]: Progress Notes [...] | | 2013 | | Center at [facility] [address] | [address] | Review ([facility] | | | | [address] [facility] | [facility] | OUTSIDE REOCRDS: | | | | for Health and | [place] | Progress Notes | | | | Healing, [address] | [address] | 09/25/2013 (f/u | | | | [facility] [place] | [phone] | chemo/radiation | | | | [address] | | therapy for | | | | [phone] | | cholangiocarcinoma) | | | | [...]
--- OUTSIDE RECORDS SUMMARY | ~2019-06-06 | XMS | Encounter Summary ---
Demographics + + + | Address | [address] | | | [place] [address] | + + + | Home Phone [...] Providers + +------+ + | Care Director Translation Name | Role | Phone | + [...] [address] | | | | | [address] [facility] | [facility] | | | | | for Health and | [place], [place] | | | | | [facility] [place] [address] | [address] | | | | | [place], [place] | [phone] | | | | | [address] | | | | | | [phone] | | | +--------+ + + + [...]
--- OUTSIDE RECORDS SUMMARY | ~2019-06-06 | XMS | Encounter Summary ---
Demographics + + + | Address | [address] | | | [place] [address] | + + + | Home Phone [...] Author | [facility] | | | and Eduardoana | + + + | Organization | [facility] | | | and Eduardoana | + + + | Address | Unknown | + + + | Phone | Unavailable | + + + Support + + + + + | Name | Relationship | Address | Phone | + + + + + | Poncho Oquendo | ECON | [address] | | | | | [place] | | | | | [address] | | + + + + + | Marta Upton | ECON | [place] | | | | | [address] | | + + + + + Care Team Providers + +------+ + | Care Fruit Pitter Name | Role | Phone | + +------+ + | Valeriy Carmona DO | PCP | | + +------+ + Encounter Details +--------+ + + + + | Date | Type | Department | Care Team | Description | +--------+ + + + + | 07/05/ | Hospital | [facility] | Pedro Green, | | | 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 | [facility] | DO [address] | | | | | [address] | [place] [address] | | | | | [place], [place] | [phone] | | | | | [address] | | | | | | [phone] | | | +--------+ + + + [...] (none) Author Type: Registered Nurse Filed: 07/05/18 2302 Date of Service: 07/05/181540 Status: Signed Nurse Researcher: Erika Lorenzana, RN (Registered Nurse) Discharge instructions, [...] TAI | | | | | | [place] [address] | | | | | | [phone] | | | | | | | [...]
--- OUTSIDE RECORDS SUMMARY | ~2019-06-06 | XMS | Encounter Summary ---
Demographics + + + | Address | [address] | | | [place] [address] | + + + | Home Phone [...] | Author | [facility] | | | and Eduardoana | + + + | Organization | [facility] | | | and Eduardoana | + + + | Address | Unknown | + + + | Phone | Unavailable | + + + Support + + + + + | Name | Relationship | Address | Phone | + + + + + | Poncho Oquendo | ECON | [address] | | | | | [place] | | | | | [address] | | + + + + + | Marta Upton | ECON | [place] | | | | | [address] | | + + + + + Care Team Providers + +------+ + | Care Restaurant Culinary Manager Name | Role | Phone | [...] | | | ONCOLOGY CLINIC [address] | [facility] | | | | | [facility] | [place] [address] | | | | | [place] [address] | [phone] | | | | | [phone] | | | +--------+ + + + [...] | | | | | [place] [address] | | | | | | [phone] | | | | | | | | +--------+---------+ + + + documented as of this encounter Visit Diagnoses Not on filedocumented in this encounter"
--- OUTSIDE RECORDS SUMMARY | ~2019-06-06 | XMS | Encounter Summary ---
Demographics + + + | Address | [address] | | | [place] [address] | + + + | Home Phone [...] | Author | [facility] | | | and Eduardoana | + + + | Organization | [facility] | | | and Eduardoana | + + + | Address | Unknown | + + + | Phone | Unavailable | + + + Support + + + + + | Name | Relationship | Address | Phone | + + + + + | Poncho Oquendo | ECON | [address] | | | | | [facility], [place] | | | | | [address] | | + + + + + | Marta Upton | ECON | [place], [place] | | | | | [address] | | + + + + + Care Team Providers + +------+ + | Care Ladle Builder Name | Role | Phone | + +------+ + PCP | Unavailable | + +------+ + Encounter Details +--------+ + + + + | Date | Type | Department | Care Team | Description | +--------+ + + + + | 01/15/ | Hospital | [facility] | | | | 2012 | Encounter | MED CTR XRAY [address] | | | | | | [address] [place] | | | | | | [place] [address] | | | | | | [phone] | | | +--------+ + + + [...] [address] | | | | | | [place] [address] | | | | | | [phone] | | | | | | | [...] | [facility] Diagnostic Imaging | [place] | | Department [address] [place] | [facility] | | [ rep ct [address]] [ rep ct [facility] | | zip] Signed | - IMAGING | | | | | Patient Name: JENELLEAURA HANSON Physician: | | | LIZBETH. : 1960 Age: 52 Sex: F Unit #: [id number] | | | Exam Date: 01/15/13 [place] [facility] [place] | | | Report #: [id number] Page: | | | %(RAD)RES..mtdd.print.filter("pg") of %(RAD) | | | RES..mtdd.print.filter("tpg") | | | | | | Accession Number: [id number] | | | CHEST, ABDOMEN, PELVIS CT [...] Transcribed | | | Date/Time: 01/15/2013 13:23 Superintendent Factory: | | | <<Signature on File>> | | | Mathieu Blas | | Emir Brasher MD01/15/132 <Electronically signed by Mathieu Brasher MD> Mathieu Brasher MD 01/15/13 1140 | | | Superintendent Factory: ADIKTIVO Vqzwzwfmytioa15/02/13 1323 | | | Epifanio Najera MD | | + + + + + + + + | Performing | Address | City/State/Zipcode | Phone Number | | Organization | | | | + + + + + | [address] | [address] | [place] | [phone] | | [facility] | | [address] | | | - IMAGING | | | | + + + + + documented in this encounter Visit Diagnoses Not on filedocumented in this encounter
--- OUTSIDE RECORDS SUMMARY | ~2019-06-06 | XMS | Encounter Summary ---
Demographics + + + | Address | [address] | | | [place] [address] | + + + | Home Phone [...] Author | [facility] | | | and Eduardoana | + + + | Organization | [facility] | | | and Eduardoana | + + + | Address | Unknown | + + + | Phone | Unavailable | + + + Support + + + + + | Name | Relationship | Address | Phone | + + + + + | Poncho Oquendo | ECON | [address] | | | | | [facility], [place] | | | | | [address] | | + + + + + | Marta Upton | ECON | [place] | | | | | [address] | | + + + + + Care Team Providers + +------+ + | Care Marine Cargo Specialist Name | Role | Phone | [...] + + | 11/29/ | Hospital | [facility] | Pedro Green, | Obstruction of left | | 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 | [facility] | DO [address] | ureter | | | | CARE FLOOR [address] | [place] [address] | | | | | [address] | [phone] | | | | | [place] | | | | | | [address] | | | | | | [phone] | | | +--------+ + + + [...] out of the urethra Date Last Reviewed: 02/15/[id number] [employer]. [address] [place] [address]. All righ ts reserved. This information is [...] For the first 24 hours after your gerogina beatriz: ? Do not drive or use [...] on your doctor's advice. Talk to your surety bond agent regarding the use of this medicine in children. Special care may be needed. What side effects may I notice from receiving this medicine? Side effects that you should report to your doctor or health healthcare technician as soon as p ossible: allergic reactions like skin rash, itching or hives, swelling of the face, lips, or tongue blue or purple color of the skin difficulty breathing fever less urine unusual bleeding, bruising unusual tired, weak vomiting yellowing of the eyes or skin Side effects that usually do not require medical attention (report to your doctor or health healthcare technician if they continue or are bothersome): dark [...] if you have any of these conditions: bueogoj-0-vpztdrdmr dehydrogenase (G6PD) deficiency kidney disease an unusual or allergic reaction to phenazopyridine, other medicines, foods, dyes, or preser vatives or trying to get breast-feeding What should I watch for while using this medicine? Tell your doctor or health healthcare technician if your symptoms do not improve or [...] for sugar in your urine. Talk to [facility] health care provider. NOTE:This [...] information carefully each time. Talk to your surety bond agent regarding the use of this medicine in children. Special care may be needed. What side effects may I notice from receiving this medicine? Side effects that you should report to your doctor or health healthcare technician as soon as p ossible: allergic reactions [...] (report to your doctor or health healthcare technician if they continue or are bothersome): dry [...] Check with your doctor or health healthcare technician if you get an attack of severe diarrhea, nausea and vomiting, or if you sweat a lot. The loss of too much body fluid can make it haile gerous for you to take this medicine. This medicine may affect blood sugar levels. If you have diabetes, check with your doctor o r health healthcare technician before you change your diet or the [...] | | | | | | [place] [address] | | | | | | [phone] | | | | | | | [...] | | | | | | longer, nktfru-xjd-nrlzm use of | | | | | [...]
--- OUTSIDE RECORDS SUMMARY | ~2019-06-06 | XMS | Encounter Summary ---
Demographics + + + | Address | [address] | | | [place] [address] | + + + | Home Phone [...] Team Providers + +------+ + | Care Prom Burn Off Operator Name | Role | Phone | + +------+ + | Tomasa Wagnre | PCP | | + +------+ + [...] Closed | | Hematology & | | Romy | Shihem | | | | Oncology | | MD Tai | Faculty Chh1 | | | | | | [address] | [address] | | | | | | [address] | Ave | | | | | | Rd | Mailcode: | | | | | | [place], [place] | [facility] | | | | | | [address] | for Health | | | | | | Phone: | and Healing, | | | | | | [phone] | Building 1, | | | | | | Fax: | 7th Floor | | | | | | [phone] | [place], [place] | | | | | | | [address] | | | | | | | Phone: | | | | | | | [phone] | | | | | | | Fax: | | | | | | | [phone] | +--------+--------+ + + + + Encounter Details +--------+---------+ + + + | Date | Type | Department | Care Team | Description | +--------+---------+ + + + | 11/01/ | Office | Hematology/Medical | Elva Grey, | Gallbladder cancer | | 2013 | Visit | Oncology at [facility] | [address] | (HCC) (Primary Dx) | | | | [address] | [address] | | | | | Mailcode: CH7M | [place] [address] | | | | | [facility] | [phone] | | | | | and Healing, | | | | | | Building 1, 7th | | | | | | Floor [place], [place] | | | | | | [address] | | | | | | [phone] | | | +--------+---------+ + + + [...] negative for malignancy - Adjuvant chemotherapy recommended: [place]/Cap for 4 cycles then restaging - 09/13/12-10/23/12 [...] ultrasound, this was normal. No admission to [facility], had some neupogen shots during [...] for up to 12 hours in a co 24-hour period. ondansetron ODT 4 mg Oral [...] healthy lifestyle, I did not recommend a co specific supplementation. Return if symptoms worsen or fail to improve. Will have follow up locally documented in this enc nter Plan of [...]
--- OUTSIDE RECORDS SUMMARY | ~2019-06-06 | XMS | Encounter Summary ---
Demographics + + + | Address | [address] | | | [place] [address] | + + + | Home Phone [...] Providers + +------+ + | Care Security Shift Supervisor Name | Role | Phone | [...] 2012 | | Center at [facility] [address] | [address] | | | | | [facility] | [facility] | | | | | for Health and | [place], [place] | | | | | [facility] [place] [address] | [address] | | | | | [place], [place] | [phone] | | | | | [address] | | | | | | [phone] | | | +--------+ + + + [...]
--- OUTSIDE RECORDS SUMMARY | ~2019-06-06 | XMS | Encounter Summary ---
Demographics + + + | Address | [address] | | | [place] [address] | + + + | Home Phone [...] + | Author | [facility] | | | and Eduardoana | + + + | Organization | [facility] | | | and Eduardoana | + + + | Address | Unknown | + + + | Phone | Unavailable | + + + Support + + + + + | Name | Relationship | Address | Phone | + + + + + | Poncho Oquendo | ECON | [address] | | | | | [facility], [place] | | | | | [address] | | + + + + + | Marta Upton | ECON | [place] | | | | | [address] | | + + + + + Care Team Providers + +------+ + | Care Mud Logger Name | Role | Phone | [...] + + | 02/12/ | Telephone | [facility] | Pedro Green, | Missing Paperwork | | 2019 | | UROLOGY [address] | DO [address] | (notes on MyChart); | | | | [address] | [place] [address] | Other (Return pt | | | | [place], [place] | [phone] | call ) | | | | [address] | | | | | | [phone] | | | +--------+ + + + [...] | | | | | [place] [address] | | | | | | [phone] | | | | | | | | +--------+---------+ + + + documented as of this encounter Visit Diagnoses Not on filedocumented in this encounter"
--- OUTSIDE RECORDS SUMMARY | ~2019-06-06 | XMS | Clinical Summary ---
Demographics + + + | Address | [address] | | | [place] [address] | + + + | Home Phone [...] Providers + +------+ + | Care Supervisor Train Operations Name | Role | Phone | + +------+ + | Valeriy Carmona MD | PCP | | + +------+ + Source Comments GWEN is fully live on both EpicCare Ambulatory and EpicCare InPatient.[facility] Allergies + + + + + [...] [facility]agland at . | | Babak in [place]. -04/26/2012: R0 Resection. | | -05/31/2012-09/03/2012 Chemotherapy: [...] CROSS | | 16-Pre | 8 | [address] | | | | [place] | | sent | | [place], | | | | L | | | | [place] [address] | | + +--------+ +--------+ + +--------+ | [facility] | [facility] | xxxxxxxxx | 02/14/19 | | | [...] Person | Self | [birth year] | | [address] | | | al/Fam | | 1961 | [phone] | [place] | | | jose alejandro | | | 5 (Home) | [address] | + +--------+ +--------+ + + | Aura Upton | Agency | Self | [birth year] | | [address] | | | | | 1961 | [phone] | [place] | | | | | | 5 (Home) | [address] | + +--------+ +--------+ + + Advance Directives + + + + + | Type | Date Recorded | Patient | Explanation | | | | Optical Engineering Technician | | + + + + + | Advance | | | | | Directives and | | | | | Living Will | | | | + + + + + | Power of | | | | | Beam Carrier Hauler Pusher | | | | + + + [...]
--- OUTSIDE RECORDS SUMMARY | ~2019-06-06 | XMS | Encounter Summary ---
Demographics + + + | Address | [address] | | | [place] [address] | + + + | Home Phone [...] Team Providers + +------+ + | Care Flap Curer Name | Role | Phone | + [...] [address] | | | | | [facility] | [address] | | | | | [facility] and | [place] [address] | | | | | [facility] [address] | [phone] | | | | | [address] [place], | | | | | | [place] [address] | | | | | | [phone] | | | +--------+ + + + [...]
--- OUTSIDE RECORDS SUMMARY | ~2019-06-06 | XMS | Encounter Summary ---
Demographics + + + | Address | [address] | | | [place] [address] | + + + | Home Phone [...] | Author | [facility] | | | and Eduardoana | + + + | Organization | [facility] | | | and Eduardoana | + + + | Address | Unknown | + + + | Phone | Unavailable | + + + Support + + + + + | Name | Relationship | Address | Phone | + + + + + | Poncho Oquendo | ECON | [address] | | | | | [place] | | | | | [address] | | + + + + + | Marta Upton | ECON | [place] | | | | | [address] | | + + + + + Care Team Providers + +------+ + | Care Metal Gauge Maker Name | Role | Phone | [...] | ONCOLOGY CLINIC [address] | [facility] | | | | | [facility] | [place] [address] | | | | | [place] [address] | [phone] | | | | | [phone] | | | +--------+ + + + [...] | | [facility] [address] | | | | | | [phone] | | | | | | | | +--------+---------+ + + + documented as of this encounter Visit Diagnoses Not on filedocumented in this encounter"
--- OUTSIDE RECORDS SUMMARY | ~2019-06-06 | XMS | Encounter Summary ---
Demographics + + + | Address | [address] | | | [place] [address] | + + + | Home Phone [...] Providers + +------+ + | Care Clinical Science Consultant Name | Role | Phone | [...] | Visit | Center at [facility] [address] | [address] | care (Primary Dx) | | | | [facility] | [facility] | | | | | for Health and | [place], [place] | | | | | [facility], [facility] [address] | [address] | | | | | [place], [place] | [phone] | | | | | [address] | | | | | | [phone] | | | +--------+---------+ + + + [...] sooner if she wishes. Tai Stanton M.D. [facility] ([facility]) Professor and Vice-Inspector Metal Can of Surgery The [facility] Nava Chair for Pancreatic Disease Research Pancreatic/ HepatoBiliary and Foregut Working Groups Office email: [email or web address] documented in this en counter Plan of Treatment Not on filedocumented as of this encounter Visit Diagnoses + + | Diagnosis | + + | Encounter for wound care - Primary Encounter for other specified aftercare | + + documented in this encounter
--- OUTSIDE RECORDS SUMMARY | ~2019-06-06 | XMS | Encounter Summary ---
Demographics + + + | Address | [address] | | | [place] [address] | + + + | Home Phone [...] Team Providers + +------+ + | Care Still Tender Name | Role | Phone | [...] | | | | | Procedures | [place], [place] | [place], [place] | | | | | CONSULT TO | [address] | [address] | | | | | ENT / FACIAL | Phone: | Phone: | | | | | PLASTIC | [phone] | [phone] | | | | | SURGERY | Fax: | Fax: | | | | | | [phone] | [phone] | +--------+--------+ + + + + Encounter [...] | | | Reconstructive | Velma Whitfield [place], | Septal Defect | | | | Services at [facility] | [place] [address] | | | | | [address] | [phone] | | | | | Mailcode: KAREEN | | | | | | [facility] | | | | | | and Healing, | | | | | | Building 1, 5th | | | | | | Floor [place], [place] | | | | | | [address] | | | | | | [phone] | | | +--------+---------+ + + + [...] today. Photos obtained. She met with my patient scheduler maximo hirsch. Followup arranged for preop. Time spent with patient /family, reviewing studies/ recor ds 20 minutes, with >50 % of time spent in consultation and coordination of care. Virgilio Buck MD FACS Professor Facial Plastic and Reconstructive Surgery Dept. of Otolaryngology/Head and Neck Surgery [facility] tel fax email [email or web address] documented in this encounte r Plan of [...]
--- OUTSIDE RECORDS SUMMARY | ~2019-06-06 | XMS | Encounter Summary ---
Demographics + + + | Address | [address] | | | [place] [address] | + + + | Home Phone [...] + | Author | [facility] | | | and Eduardoana | + + + | Organization | [facility] | | | and Eduardoana | + + + | Address | Unknown | + + + | Phone | Unavailable | + + + Support + + + + + | Name | Relationship | Address | Phone | + + + + + | Poncho Oquendo | ECON | [address] | | | | | [place] | | | | | [address] | | + + + + + | Marta Upton | ECON | [place] | | | | | [address] | | + + + + + [...] | Procedures | [address] | [place] [address] | | | | | [place] OFFICE | OBED, | Phone: | | | | | OUTPATIENT | [place] [address] | [phone] | | | | | VISIT 25 | | Fax: | | | | | MINUTES | | [phone] | +--------+--------+ + + + + Encounter Details +--------+ + + + + | Date | Type | Department | Care Team | Description | +--------+ + + + + | 02/02/ | Hospital | [facility] | Ángela Glass | Gallbladder cancer, | | 2017 | Encounter | MED CTR MEDICAL | J, PharmD [address] | carcinoma (HCC) | | | | ONCOLOGY CLINIC [address] | [address] [place] | (Primary Dx) | | | | [address] [place] | [place] [address] | | | | | [place] [address] | [phone] | | | | | [phone] | | | +--------+ + + + [...] original. Clinical Oncology Pharmacy Services Progress Note [facility] Pt. Name/Age/: Aura Upton 56 y.o. 1960 CSN: [id number] Date of service: 02/02/2017 Provider: Ángela Glass PharmD Identifying Statement: Aura Upton is a 56 y.o. female from [address] [place] [address], The encounter diagnosis was Gallbladder cancer, carcinoma [...] 2. Follow up with Dr Najera at [facility] in [place], [place]. 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
--- OUTSIDE RECORDS SUMMARY | ~2019-06-06 | XMS | Encounter Summary ---
Demographics + + + | Address | [address] | | | [place] [address] | + + + | Home Phone [...] Author | [facility] | | | and Eduardoana | + + + | Organization | [facility] | | | and Eduardoana | + + + | Address | Unknown | + + + | Phone | Unavailable | + + + Support + + + + + | Name | Relationship | Address | Phone | + + + + + | Poncho Oquendo | ECON | [address] | | | | | [place], [place] | | | | | [address] | | + + + + + | Marta Upton | ECON | [place] | | | | | [address] | | + + + + + [...] + + | 06/26/ | Telephone | [facility] | Marcelina Johnson, | IDT Note | | 2014 | | MED CTR CHEMO | RN | | | | | INFUSION [address] | | | | | | [place], | | | | | | [place] [address] | | | | | | [phone] | | | +--------+ + + + [...] [address] | | | | | | [place] [address] | | | | | | [phone] | | | | | | | | +--------+---------+ + + + documented as of this encounter Visit Diagnoses Not on filedocumented in this encounter"
--- OUTSIDE RECORDS SUMMARY | ~2019-06-06 | XMS | Encounter Summary ---
Demographics + + + | Address | [address] | | | [place] [address] | + + + | Home Phone [...] + | Author | [facility] | | | and Eduardoana | + + + | Organization | [facility] | | | and Eduardoana | + + + | Address | Unknown | + + + | Phone | Unavailable | + + + Support + + + + + | Name | Relationship | Address | Phone | + + + + + | Poncho Oquendo | ECON | [address] | | | | | [facility] [place] | | | | | [address] | | + + + + + | Marta Upton | ECON | [place], [place] | | | | | [address] | | + + + + + Care Team Providers + +------+ + | Care Mechanical Drawing Teacher Name | Role | Phone | + +------+ + PCP | Unavailable | + +------+ + Encounter Details +--------+ + + + + | Date | Type | Department | Care Team | Description | +--------+ + + + + | 01/15/ | Hospital | [facility] | | | | 2012 - | Encounter | MED CTR CANCER | | | | | | CENTER [address] | | | | 02/13/ | | [place] | | | | 2012 | | [address] | | | | | | [phone] | | | +--------+ + + + [...] [address] | | | | | | [place] [address] | | | | | | [phone] | | | | | | | [...] + | [address] | [address] | [place] | [phone] | | [facility] | | [address] | | | - LABORATORY | | | | + + + + + | [facility] | [address] | [place] | | | [facility] | | [id number] | | | - [...] Agee | | | | | | [address]73 CLIA: | | | | | | [id number] | | | | + + + + + + + + | Specimen | + + | | + + + + + + + | Performing | Address | City/State/Zipcode | Phone Number | | Organization | | | | + + + + + | [facility] | [address] | [place] | [phone] | | [facility] | | [address] | | | - LABORATORY | | | | + + + + + | [facility] | [address] | [place] | | | [facility] | | [id number] | | | - LABORATORY [...] 11 | 7 - 18 mg/dL | [facility] | | | | | | [facility] | | | | | | MEDICAL | | | | | | [facility]ENTER - | | | | | | LABORATORY | | + + + + + + | Creatinine | 0.77 | 0.60 - 1.30 | [facility] | | | | | mg/dL [...] + | [facility] | [address] | [place], [place] | [phone] | | [facility] | | [address] | | | - LABORATORY | | | | + + + + + | [facility] | [address] | [place], [place] | | | [facility] | | [address], [facility] | | | - LABORATORY | [...] + + | [facility] | [address] | [place] | [phone] | | [facility] | | [address] | | | - LABORATORY | | | | + + + + + | [facility] | [address] | [place] | | | [facility] | | [id number] | | | - LABORATORY | | | | + + + + + documented in this encounter Visit Diagnoses Not on filedocumented in this encounter"
--- OUTSIDE RECORDS SUMMARY | ~2019-06-06 | XMS | Clinical Summary ---
Demographics + + + | Address | [address] | | | [place] [address] | + + + | Home Phone | | + + + | Preferred Language | Unknown | + + + | Marital Status | Unknown | + + + | Sabianism Affiliation | Unknown | + + + | Race | Unknown | + + + | Ethnic Group | Unknown | + + + Author + + + | Author | [facility] (Historical as of | | | 09-30-18) | + + + | Organization | [facility] (Historical as of | | | 09-30-18) | + + + | Address | Unknown | + + + | Phone | Unavailable | + + + Support + + + + + | Name | Relationship | Address | Phone | + + + + + | Poncho Oquendo | ELVIN | [address] | | | | | [place], [place] | | | | | [address] | | + + + + + Care Team Providers + +------+ + | Care Nutrition Director Name | Role | Phone | [...] Left: | COOK | | 11/12/ | [id number] | | - SnaImplanted: Qty: 1 on | | Ureter | [employer] | | 2019 | /NA | | 07/05/2018 by Pedro Green | | | - ROBERT | | | /[id number] | | W, DO | | | [...] +--------+ +------+-------+---------+ | [facility] | BLUE | [id number] | | | | | | CROSS | | | | | | | BLUE | | | | | | | SHIELD | | | | | | | FEP | | | | | + +--------+ +------+-------+---------+ | /[facility] | YELLOW | [id number] | | | | | PLANS | [...] | Self | [birth year] | Home: | [address] | | | al/Fam | | [phone] | [phone] [place] [address] | | | jose alejandro | | | [phone] | | + +--------+ +--------+ + +
--- OUTSIDE RECORDS SUMMARY | ~2019-06-06 | XMS | Encounter Summary ---
Demographics + + + | Address | [address] | | | [place] [address] | + + + | Home Phone [...] | Author | [facility] [place] | | | and Eduardoana | + + + | Organization | [facility] [place] | | | and Eduardo[place] | + + + | Address | Unknown | + + + | Phone | Unavailable | + + + Support + + + + + | Name | Relationship | Address | Phone | + + + + + | Poncho Oquendo | ECON | [address] | | | | | [facility] [place] | | | | | [address] | | + + + + + | Marta Upton | ECON | [place], [place] | | | | | [address] | | + + + + + Care Team Providers + +------+ + | Care Paint Line Production Supervisor Name | Role | Phone | + +------+ + PCP | Unavailable | + +------+ + Encounter Details +--------+ + + + + | Date | Type | Department | Care Team | Description | +--------+ + + + + | 10/19/ | Hospital | [facility] | | | | 2012 - | Encounter | [facility] | | | | | | CENTER [address] | | | | 11/13/ | | [place] | | | | 2012 | | [address] | | | | | | [phone] | | | +--------+ + + + [...] [address] | | | | | | [place] [address] | | | | | | [phone] | | | | | | | [...] | [facility] | [address] | [place] | [phone] | | [facility] | | [address] | | | - LABORATORY | | | | + + + + + | [facility] | [address] | [place] | | | [facility] | | [id number] | | | - LABORATORY [...] | | | | [address], [place], [place] | | | | | | [address] CLIA: | | | | | | [id number] | | | | + + + + + + + + | Specimen | + + | | + + + + + + + | Performing | Address | City/State/Zipcode | Phone Number | | Organization | | | | + + + + + | [facility] | [address] | [place] | [phone] | | [facility] | | [address] | | | - LABORATORY | | | | + + + + + | [facility] | [address] | [place] | | | [facility] | | [address], [facility] | | | - LABORATORY [...] | [facility] | [address] | [place], [place] | [phone] | | [facility] | | [address] | | | - LABORATORY | | | | + + + + + | [facility] | [address] | [place] | | | [facility] | | [id number] [place] [address] | | | - LABORATORY | | [...] [address] | [place] | [phone] | | [facility] | | [address] | | | - LABORATORY | | | | + + + + + | [facility]. | [address] | [place] | | | [facility] | | [address] | | | - LABORATORY | | | | + + + + + documented in this encounter Visit Diagnoses Not on filedocumented in this encounter"
--- OUTSIDE RECORDS SUMMARY | ~2019-06-06 | XMS | Encounter Summary ---
Demographics + + + | Address | [address] | | | [place] [address] | + + + | Home Phone [...] Team Providers + +------+ + | Care Ophthalmic Aide Name | Role | Phone | [...] | | [address] | [facility], | | | | | [address] | [place] [address] | | | | | Pavilion, [facility] floor | [phone] | | | | | [place], [place] | | | | | | [address] | | | | | | [phone] | | | +--------+ + + + [...]
--- OUTSIDE RECORDS SUMMARY | ~2019-06-06 | XMS | Encounter Summary ---
Demographics + + + | Address | [address] | | | [place] [address] | + + + | Home Phone [...] Team Providers + +------+ + | Care Chronometer Tester Name | Role | Phone | [...] [facility] [address] | [address] | [facility] ([facility] | | | [facility] | [facility] | OUTSIDE PROCEDURE | | | | for [facility] and | [place], [place] | REPORT) | | | | [facility], [facility] 2 | [address] | | | | | [place], [place] | [phone] | | | | | [address] | | | | | | [phone] | | | +--------+ + + + [...]
--- OUTSIDE RECORDS SUMMARY | ~2019-06-06 | XMS | Encounter Summary ---
Demographics + + + | Address | [address] | | | [place] [address] | + + + | Home Phone [...] Author | [facility] [place] | | | and Eduardo[place] | + + + | Organization | [facility] | | | and [place]ardo[place] | + + + | Address | Unknown | + + + | Phone | Unavailable | + + + Support + + + + + | Name | Relationship | Address | Phone | + + + + + | Poncho Oquendo | ECON | [address] | | | | | [place] | | | | | [address] | | + + + + + | Marta Upton | ECON | [place] | | | | | [address] | | + + + + + Care Team Providers + +------+ + | Care Flexo Press Operator Name | Role | Phone [...] + + | 07/03/ | Telephone | [facility] | Reinaldo, | Medication Question | | 2019 | | MED CTR MEDICAL | Epifanio Soler MD [address] | | | | | ONCOLOGY CLINIC [address] | [facility] | | | | | W [facility] | [place] [address] | | | | | [place] [address] | [phone] | | | | | [phone] | | | +--------+ + + + [...] 09/17/ | Office | Urology | Pedro Grene, | | | 2019 | Visit | | DO [address] | | | | | | [place] [address] | | | | | | [phone] | | | | | | | | +--------+---------+ + + + documented as of this encounter Visit Diagnoses Not on filedocumented in this encounter"
--- OUTSIDE RECORDS SUMMARY | ~2019-06-06 | XMS | Encounter Summary ---
Demographics + + + | Address | [address] | | | [place] [address] | + + + | Home Phone [...] | Author | [facility] [place] | | | and Eduardoana | + + + | Organization | [facility] [place] | | | and Eduardoana | + + + | Address | Unknown | + + + | Phone | Unavailable | + + + Support + + + + + | Name | Relationship | Address | Phone | + + + + + | Poncho Oquendo | ECON | [address] | | | | | [place] | | | | | [address] | | + + + + + | Marta Upton | ECON | [place] | | | | | [address] | | + + + + + Care Team Providers + +------+ + | Care Door Hanger Name | Role | Phone | [...] | | ONCOLOGY CLINIC [address] | [facility] | | | | | W [facility] | [place] [address] | | | | | [place] [address] | [phone] | | | | | [phone] | | | +--------+ + + + [...] | | [facility] [address] | | | | | | [phone] | | | | | | | | +--------+---------+ + + + documented as of this encounter Visit Diagnoses Not on filedocumented in this encounter"
--- OUTSIDE RECORDS SUMMARY | ~2019-06-06 | XMS | Encounter Summary ---
Demographics + + + | Address | [address] | | | [place] [address] | + + + | Home Phone [...] Team Providers + +------+ + | Care New Client Banking Services Clerk Name | Role | Phone | + +------+ + | Tomasa Wagner | PCP | | + +------+ + Encounter Details +--------+ + + + + | Date | Type | Department | Care Team | Description | +--------+ + + + + | 05/24/ | MyChart | [facility] | Miguel Seymour, | RE: Share Info with | | 2014 | Encounter | [facility] | [address] | Dr. Tai Stanton | | | | [address] | [facility] | | | | | [address] | [place], [place] | | | | | Alexis, [facility] floor | [address] | | | | | [place], [place] | [phone] | | | | | [address] | | | | | | [phone] | | | +--------+ + + + [...]
[~2019-06-06 01:14] MED LIST changes: +ATIVAN1 MG PO; +CALCIUM-MAGNES1 EAC7 PO; +ONDANSETRON ODT4 MG PO
--- OUTSIDE RECORDS SUMMARY | 2019-06-06 01:18 | XMS ---
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 - 2 Visits in 30 Days CARE PROVIDERS MIMI SolerGILSON Internal Medicine: Medical Oncology Current CHAD PHONE: [phone] AHMET HOLLY Pediatric Clinical Dietician Current PHONE: [phone] Mela has no Care Guidelines for this patient. Care History Medical/Surgical 06/09/2017 [facility] HISTORY GALLBLADDER CANCER WITH METS. E.D. VISIT COUNT (12 MO.) 2 [facility] TOTAL 2 NOTE: Visits indicate total known visits. 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 - Hormone replacement therapy - Secondary malignant neoplasm of retroperitoneum and peritoneu - 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 - Personal history of nicotine dependence - Personal history of nicotine dependence - retirement (current) use of opiate analgesic - Anxiety disorder, unspecified - Opioid dependence, uncomplicated - Hormone replacement therapy - 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
[2019-06-06] MEDS ORDERED: HYDROMORPHONE HC4 MG PO (01:34)
[2019-06-06] MEDS ORDERED: DILAUDID1 MG/ML PO (04:35)
[2019-06-06] MEDS ORDERED: K-TAB ER20 MEQ PO (04:42)
[2019-06-08] MEDS ORDERED: GRANIX300 MCG/0. SUB-Q (09:32)
== END 2019-06-06 05:02 | disposition home or self-care (01) ==
LOC: ED 01:14
DX: R10.84 Generalized abdominal pain (principal); F11.23 Opioid dependence with withdrawal; Z87.891 Personal history of nicotine dependence; Z88.2 Allergy status to sulfonamides; Z88.1 Allergy status to other antibiotic agents; Z79.899 Other long term (current) drug therapy
CPT/HCPCS: 80053; 81001; 83690; 83735; 85025; 96361; 96374; 96375; 96376; 99284-25; J1170; J2405; J7030

== ENCOUNTER 2019-06-13 11:15 | Inpatient (IN) | payer BC, OTHER ==
[~2019-06-13] VITALS: Ht 162.6 cm; Wt 60.3 kg
--- OUTSIDE RECORDS SUMMARY | ~2019-06-13 | XMS | Encounter Summary ---
Demographics + + + | Address | [address] | | | [place] [address] | + + + | Home Phone | | + + + | Preferred Language | Unknown | + + + | Marital Status | | + + + | Congregational Affiliation | Unknown | + + + | Race | Unknown | + + + | Ethnic Group | Unknown | + + + Author + + + | Author | [facility] [place] | | | and Eduardoana | + + + | Organization | [facility] [place] | | | and Eduardoana | + + + | Address | Unknown | + + + | Phone | Unavailable | + + + Support + + + + + | Name | Relationship | Address | Phone | + + + + + | Poncho Oquendo | ECON | [address] | | | | | [place] | | | | | [address] | | + + + + + | Marta Upton | ECON | [place] | | | | | [address] | | + + + + + Care Team Providers + +------+ + | Care Automatic Mold Sander Name | Role | Phone | + +------+ + | Valeriy Carmona DO | PCP | | + +------+ + Encounter Details +--------+ + + + + | Date | Type | Department | Care Team | Description | +--------+ + + + + | 07/30/ | Orders Only | [facility] | Marcelina Johnson, | | | 2016 | | MED CTR CHEMO | RN | | | | | INFUSION [address] | | | | | | [place], | | | | | | [place] [address] | | | | | | [phone] | | | +--------+ + + + [...] on file | | + + + + + + + | Job Start Date | Occupation | Industry | + + + + | Not on file | Not on file | Not on file | + + + + + + + + | Travel History | Travel Start | Travel End | + + + + + + | No recent travel history available. | + + documented as of this encounter Plan of Treatment +--------+---------+ + + + | Date | Type | Specialty | Care Team | Description | +--------+---------+ + + + | 09/17/ | Office | Urology | Pedro Green, | | | 2019 | Visit | | DO [address] | | | | | | [place] [address] | | | | | | [phone] | | | | | | | | +--------+---------+ + + + documented as of this encounter Visit Diagnoses Not on filedocumented in this encounter"
--- OUTSIDE RECORDS SUMMARY | ~2019-06-13 | XMS | Encounter Summary ---
Demographics + + + | Address | [address] | | | [place] [address] | + + + | Home Phone | | + + + | Preferred Language | Unknown | + + + | Marital Status | | + + + | Latter-Day Affiliation | Unknown | + + + | Race | Unknown | + + + | Ethnic Group | Unknown | + + + Author + + + | Author | [facility] [place] | | | and Eduardoana | + + + | Organization | [facility] [place] | | | and Eduardoana | + + + | Address | Unknown | + + + | Phone | Unavailable | + + + Support + + + + + | Name | Relationship | Address | Phone | + + + + + | Poncho Oquendo | ECON | [address] | | | | | [place] | | | | | [address] | | + + + + + | Marta Upton | ECON | [place] | | | | | [address] | | + + + + + Care Team Providers + +------+ + | Care Track Rider Name | Role | Phone | + +------+ + | Valeriy Carmona DO | PCP | | + +------+ + Reason for Visit +--------+ + | Reason | Comments | +--------+ + | Other | | +--------+ + Encounter Details +--------+ + + + + | Date | Type | Department | Care Team | Description | +--------+ + + + + | 11/07/ | Telephone | [facility] | Reinaldo, | Other | | 2014 | | MED CTR MEDICAL | Epifanio Soler MD [address] | | | | | ONCOLOGY CLIN[address] | [facility] | | | | | W [facility] | [place] [address] | | | | | [place] [address] | [phone] | | | | | [phone] | | | +--------+ + + + [...] [address] | | | | | | [facility] [address] | | | | | | [phone] | | | | | | | | +--------+---------+ + + + documented as of this encounter Visit Diagnoses Not on filedocumented in this encounter"
--- OUTSIDE RECORDS SUMMARY | ~2019-06-13 | XMS | Encounter Summary ---
Demographics + + + | Address | [address] | | | [place] [address] | + + + | Home Phone | | + + + | Preferred Language | Unknown | + + + | Marital Status | | + + + | Orthodoxy Affiliation | Unknown | + + + | Race | Unknown | + + + | Ethnic Group | Unknown | + + + Author + + + | Author | [facility] [place] | | | and Eduardoana | + + + | Organization | [facility] | | | and Eduardoana | + + + | Address | Unknown | + + + | Phone | Unavailable | + + + Support + + + + + | Name | Relationship | Address | Phone | + + + + + | Poncho Oquendo | ECON | [address] | | | | | [facility] [place] | | | | | [address] | | + + + + + | Marta Upton | ECON | [place] | | | | | [address] | | + + + + + Care Team Providers + +------+ + | Care Layer Out Plate Glass Name | Role | Phone | + [...] 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, | [place]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 | MD [address] | [place], | | | | | (HCC) | [address] | [place] [address] | | | | | Procedures | [place], | Phone: | | | | | [place] | [place] [address] | [phone] | | | | | DIPHENHYDRAM | Phone: | Fax: | | | | | INE HCL | [phone] | [phone] | | | | | INJECTIO, 50 | Fax: | | | | | | MG MT | [phone] | | | | | | ONDANSETRON | | | | | | | HCL | | | | | | | INJECTION, 1 | | | | | | | MG MT | | | | | | | DEXAMETHASON | | | | | | | E SODIUM | | | | | | | PHOS, 1 MG | | | | | | | MT | | | | | | | FOSAPREPITAN | | | | | | | T INJECTION, | | | | | | | 1 MG MT | | | | | | | LORAZEPAM | | | | | | | INJECTION, 2 | | | | | | | MG MT | | | | | | | GEMCITABINE | | | | | | | HCL | | | | | | | INJECTION, | | | | | | | 200 MG MT | | | | | | | CISPLATIN 10 | | | | | | | MG | | | | | | | INJECTION | | | | | | | MT | | | | | | | METHYLPREDNI | | | | | | | SOLONE | | | | | | | INJECTION, | | | | | | | 125 MG MT | | | | | | | ADRENALIN | | | | | | | EPINEPHRINE | | | | | | | INJECT, .1 | | | | | | | MG MT | | | | | | | FILGASTIM | | | | | | | (ZARXIO) 300 | | | | | | | MCG/0.5ML | | | | | | | SOSY, PER 1 | | | | | | | MCG MT | | | | | | | INJECTION, | | | | | | | FAMOTIDINE, | | | | | | | 20 MG MT | | | | | | | NORMAL | | | | | | | SALINE | | | | | | | SOLUTION | | | | | | | INFUS, 500 | | | | | | | ML MT | | | | | | | NORMAL | | | | | | | SALINE | | | | | | | SOLUTION | | | | | | | INFUS, 250 | | | | | | | ML MT | | | | | | | STERILE | | | | | | | WATER/SALINE | | | | | | | , 10 ML MT | | | | | | | CHEMOTHER, | | | | | | | IV PUSH,EA | | | | | | | ADD DRUG MT | | | | | | | CHEMOTHER, | | | | | | | IV INFUSION, | | | | | | | 1 HR MT | | | | | | | CHEMOTHER, | | | | | | | IV INFUSION, | | | | | | | EA HR MT | | | | | | | CHEMOTHER,NO | | | | | | | N-HORMONE | | | | | | | ANTI-NEOPL, | | | | | | | SUB-Q/IM MT | | | | | | | [...] + + | 05/27/ | Hospital | [facility] | Vladimir Robles, | Canceled (Clinic | | 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 | MED CTR CHEMO | MD [address] | and/or Provider | | | | INFUSION [address] [place], | Cancellation) | | | | [place], | [place] [address] | | | | | [place] [address] | [phone] | | | | | [phone] | | | +--------+ + + + + Social History + + + +--------+ + | Tobacco Use | Types | Packs/Day | Years | Date | | | | | Used | | + + + +--------+ + | Former Smoker | Cigarettes | 0.5 | 23 | Quit: 2006 | + + + +--------+ + + +---+---+---+ | Smokeless Tobacco: | | | | | Never Used | | | | + +---+---+---+ + + +---------+ + | Alcohol Use | Drinks/Week | oz/Week | Comments | + + +---------+ + | Yes | | | 0-3 per year | + + +---------+ + + + [...] | | | | | [place] [address] | | | | | | [phone] | | | | | | | | +--------+---------+ + + + documented as of this encounter Visit Diagnoses Not on filedocumented in this encounter"
--- OUTSIDE RECORDS SUMMARY | ~2019-06-13 | XMS | Encounter Summary ---
Demographics + + + | Address | [address] | | | [place] [address] | + + + | Home Phone | | + + + | Preferred Language | Unknown | + + + | Marital Status | Single | + + + | Yarsanism Affiliation | NON | + + + | Race | White | + + + | Ethnic Group | Not or | + + + Author + + + | Author | [facility] | + + + | Organization | [facility] | + + + | Address [...] Team Providers + +------+ + | Care Cover Mat Machine Operator Name | Role | Phone | + +------+ + | Tomasa Wagner | PCP | | + +------+ + Reason for Visit + + + | Reason | Comments | + + + | Refill Request | | + + + Encounter Details +--------+--------+ + + + | Date | Type | Department | Care Team | Description | +--------+--------+ + + + | 06/28/ | Refill | [facility] | Zully Soto RN | Refill Request | | 2014 | | [facility] | [place], [place] | | | | | [address] | [address] | | | | | [address] | | | | | | [place], [address]th floor | | | | | | [place], [place] | | | | | | [address] | | | | | | [phone] | | | +--------+--------+ + + + Social History + + [...]
--- OUTSIDE RECORDS SUMMARY | ~2019-06-13 | XMS | Encounter Summary ---
Demographics + + + | Address | [address] | | | [place] [address] | + + + | Home Phone | | + + + | Preferred Language | Unknown | + + + | Marital Status | | + + + | Zoroastrian Affiliation | Unknown | + + + | Race | Unknown | + + + | Ethnic Group | Unknown | + + + Author + + + | Author | [facility] | | | and Eduardoana | + + + | Organization | [facility] | | | and Eduardoana | + + + | Address | Unknown | + + + | Phone | Unavailable | + + + Support + + + + + | Name | Relationship | Address | Phone | + + + + + | Poncho Oquendo | ECON | [address] | | | | | [place] [place] | | | | | [address] | | + + + + + | Marta Upton | ECON | [place], [place] | | | | | [address] | | + + + + + Care Team Providers + +------+ + | Care Manager Software Name | Role | Phone | + +------+ + PCP | Unavailable | + +------+ + Encounter Details +--------+ + + + + | Date | Type | Department | Care Team | Description | +--------+ + + + + | 04/11/ | Abstract | [facility] | Reinaldo, | | | 2013 | | Conversion Location | Epifanio Soler MD [address] | | | | | [address] | [address] [facility] | | | | | [place], [place] | [place] [address] | | | | | [address] | [phone] | | | | | [phone] | | | +--------+ + + + [...] + + + | Blood Pressure | - | - | | + [...] + + + + | Weight | 82.1 kg (181 lb) | 03/19/2013 3:03 PM | | | | | PST | | + + + + + | Height | 162 cm (5' 3.78") | 03/19/2013 3:03 PM | | | | | PST | | + + + + + | Body Mass Index | 31.28 | 03/19/2013 3:03 PM | | | | | PST [...] | | | | | [place] [address] | | | | | | [phone] | | | | | | | | +--------+---------+ + + + documented as of this encounter Visit Diagnoses Not on filedocumented in this encounter
--- OUTSIDE RECORDS SUMMARY | ~2019-06-13 | XMS | Encounter Summary ---
Demographics + + + | Address | [address] | | | [place] [address] | + + + | Home Phone | | + + + | Preferred Language | Unknown | + + + | Marital Status | Single | + + + | Oriental Orthodox Affiliation | NON | + + + | Race | White | + + + | Ethnic Group | Not or | + + + Author + + + | Author | [facility] | + + + | Organization | [facility] | + + + | [...] Team Providers + +------+ + | Care Crusher Dry Ground Mica Name | Role | Phone | + +------+ + PCP | Unavailable | + +------+ + Encounter Details +--------+ + + + + | Date | Type | Department | Care Team | Description | +--------+ + + + + | 04/11/ | Abstract | Digestive Health | Tai Stanton, | | | 2012 | | Center [place] [address] [address] | [address] | | | | | HI[address] | [facility] | | | | | for Health and | [place], [place] | | | | | [facility] | [address] | | | | | [place], [place] | [phone] | | | | | [address] | | | | | | [phone] | | | +--------+ + + + + Social History + + + +--------+------+ | Tobacco Use | Types | Packs/Day | Years | Date | | | | | Used | | + + + +--------+------+ | Former Smoker | Cigarettes | | | | + + + +--------+------+ + + | Comments: 2006 | + + + + +---------+ + | Alcohol Use | Drinks/Week | oz/Week | Comments | + + +---------+ + | Yes | 1 Glasses of wine | 0.8 | | + + +---------+ + + [...]
--- OUTSIDE RECORDS SUMMARY | ~2019-06-13 | XMS | Encounter Summary ---
Demographics + + + | Address | [address] | | | [place] [address] | + + + | Home Phone | | + + + | Preferred Language | Unknown | + + + | Marital Status | Single | + + + | Hinduism Affiliation | NON | + + + [...] Providers + +------+ + | Care Computer Systems Analyst Name | Role | Phone | + +------+ + | Tomasa Wagner | PCP | | + +------+ + Encounter Details +--------+ + + + + | Date | Type | Department | Care Team | Description | +--------+ + + + + | 09/13/ | Abstract | Digestive Health | Tai Stanton, | | | 2012 | | Center at [facility] [address] | [address] | | | | | HIEN [facility] | [facility] | | | | | for Health and | [place], [place] | | | | | [facility], [place] [address] | [address] | | | | | [place], [place] | [phone] | | | | | [address] | | | | | | [phone] | | | +--------+ + + + [...]
--- OUTSIDE RECORDS SUMMARY | ~2019-06-13 | XMS | Encounter Summary ---
Demographics + + + | Address | [address] | | | [place] [address] | + + + | Home Phone | | + + + | Preferred Language | Unknown | + + + | Marital Status | Single | + + + | Orthodoxy Affiliation | NON | + + + | Race | White | + + + | Ethnic Group | Not or | + + + Author + + + | Author | [facility] | + + + | Organization | [facility] | + + + | Address | [...] Team Providers + +------+ + | Care Pail Tester Name | Role | Phone | + +------+ + | Tomasa Wagner | PCP | | + +------+ + Reason for Visit + + + | Reason | Comments | + + + | Treatment Planning | | + + + | Question | | + + + Encounter Details +--------+ + + + + | Date | Type | Department | Care Team | Description | +--------+ + + + + | 06/09/ | Telephone | Hematology/Medical | Elva Grey, | Treatment Planning; | | 2012 | | Oncology at [facility] | [address] | Question | | | | [address] [facility] | [facility] [address] | | | | | Mailcode: CH7M | [place] [address] | | | | | [facility] | [phone] | | | | | and [place], | | | | | | [place] [address] | | | | | | [place], [place] | | | | | | [address] | | | | | | [phone] | | | +--------+ + + + [...]
--- OUTSIDE RECORDS SUMMARY | ~2019-06-13 | XMS | Encounter Summary ---
Demographics + + + | Address | [address] | | | [place] [address] | + + + | Home Phone | | + + + | Preferred Language | Unknown | + + + | Marital Status | Single | + + + | Mosque Affiliation | NON | + + + | Race | White | + + + | Ethnic Group | Not or | + + + Author + + + | Author | [facility] | + + + | Organization | [facility] | + + + | Address [...] Team Providers + +------+ + | Care Garnisher Name | Role | Phone | + +------+ + | Tomasa Wagner | PCP | | + +------+ + Encounter Details +--------+ + + + + | Date | Type | Department | Care Team | Description | +--------+ + + + + | 07/11/ | Abstract | Digestive Health | Tai Stanton, | | | 2012 | | Center at [facility] [address] | [address] | | | | | HIEN [facility] | [facility] | | | | | for Health and | [place], [place] | | | | | [facility], [place] [address] | [address] | | | | | [place], [place] | [phone] | | | | | [address] | | | | | | [phone] | | | +--------+ + + + [...]
--- OUTSIDE RECORDS SUMMARY | ~2019-06-13 | XMS | Encounter Summary ---
Demographics + + + | Address | [address] | | | [place] [address] | + + + | Home Phone | | + + + | Preferred Language | Unknown | + + + | Marital Status | | + + + | Shinto Affiliation | Unknown | + + + | Race | Unknown | + + + | Ethnic Group | Unknown | + + + Author + + + | Author | [facility] | | | and [place] | + + + | Organization | [facility] | | | and [place] | + + + | Address | Unknown | + + + | Phone | Unavailable | + + + Support + + + + + | Name | Relationship | Address | Phone | + + + + + | Poncho Oquendo | ECON | [address] | | | | | [facility] [place] | | | | | [address] | | + + + + + | Marta Upton | ECON | [place] | | | | | [address] | | + + + + + Care Team Providers + +------+ + | Care Horticultural Specialty Grower Inside Name | Role | Phone | + +------+ + | No, Physician | PCP | Unavailable | + +------+ + Reason for Visit + + + | Reason | Comments | + + + | Follow-up | 4 month follow up for stent replacement | + + + Evaluate & Treat [...] | | | | renal and | [facility], | [place], [place] | | | | | ureteral | [place] | [address] Phone: | | | | | calculous | [address] | [phone] | | | | | obstruction | Phone: | Fax: | | | | | | [phone] | [phone] | | | | | | Fax: | | | | | | | [phone] | | +--------+--------+ + + + + Encounter Details +--------+---------+ + + + | Date | Type | Department | Care Team | Description | +--------+---------+ + + + | 11/21/ | Office | [facility] | Pedro Green, | Cholangiocarcinoma | | 2019 | Visit | UROLOGY [address] | DO [address] | (HCC) (Primary Dx); | | | | [address] | [place] [address] | Obstruction of left | | | | [place], [place] | [phone] | ureter | | | | [address] | | | | | | [phone] | | | +--------+---------+ + + + [...] | | | + +---+---+---+ + + + | Sex Assigned at [...] + + + | Blood Pressure | 113/71 | 11/21/2018 10:55 AM | | | | | PDT | | + + + + + | Pulse | 51 | 11/21/2018 10:55 AM | | | | | PDT | | + + + + + | Temperature | - | - | | + + + + + | Respiratory Rate | - | - | | + + + + + | Oxygen Saturation | 90% | 11/21/2018 10:55 AM | | | | | PDT | | + + + + + | Inhaled Oxygen | - | - | | | Concentration | | | | + + + + + | Weight | 68 kg (150 lb) | 11/21/2018 10:55 AM | | | | | PDT | | + + + + + | Height | - | - | | + + + + + | Body Mass Index | 26.57 | 07/05/2018 3:38 PM | | | | | PDT | | + + + + + documented in this encounter Patient Instructions Patient Instructions Kalina Hughes, Lamps Tester And Inspector - 11/21/2018 10:30 AM PDTPLAN IMAGING NEED TO BE DONE PRIOR TO APPOINTMENT OR YOUR APPOINTMENT WILL BE CANCELED AND CELESTE EDULED #01: Proceed with Surgery on 11/29. 4 Month Follow-up From Surgery 11/29 with Stent Exchange Options #02: Informed Consent was obtained. #03: Please call to register and schedule Per Admission appointment for Upcom ing Surgery. It is important to have a Per Admission Appointment to assure your safety [facility] and [facility]. Location: [facility] ([address] [place] [address]) Time: The day before surgery someone from the hospital will call you to give you your arriv al time. Be advised, they will call you in the late afternoon or early evening. Please do not contact our office to find out your time of arrival. IF YOU HAVE A SALESPERSON MEATS You MUST receive a cardiac clearance from your virtual recruiter prior to surgery. A pre-admission (registration) appointment will need to be done PRIOR to surgery. A schedu ler should contact you to set that appointment up. Need to cancel or reschedule your surgery, or post-op? Please call . If you have any surgery related questions or concerns, please contact Nikky at *IF YOU HAVE ANY FMLA/SHORT-TERM DISABILITY PAPERWORK THAT NEEDS TO BE FILLED OUT, PLEASE D ROP IT OFF OR FAX IT TO US ([phone]) AT LEAST 2 WEEKS PRIOR TO SURGERY. MAKE SURE TO IN CLUDE TIME OFF NEEDED/WHEN YOU PLAN TO RETURN TO WORK. documented in this encounter Progress Notes Pedro Green DO - 11/21/2018 10:30 AM PDTFormatting of this note might be different fr om the original. [facility] Urology Primary Care Provider: No Physician on [...] well. Her last excha nge was at [facility] during a septic episode. Her last CT [...] - STENT; Surgeon: Pedro Green DO; Location: [facility] MAIN OR; Service: Urology; Laterality: [...] exchange. We will plan on this in near future. Pedro Green DO 11/21/2018 documented in this e ncounter Plan of Treatment +--------+---------+ + + + | Date | Type | Specialty | Care Team | Description | +--------+---------+ + + + | 09/17/ | Office | Urology | Pedro Green, | | | 2019 | Visit | | DO [address] [facility] | | | | | | [place] [address] | | | | | | [phone] | | | | | | | | +--------+---------+ + + + documented as of this encounter Visit Diagnoses + + | Diagnosis | + + | Cholangiocarcinoma (HCC) - Primary Malignant neoplasm of intrahepatic bile ducts | + + | Obstruction of left ureter | + + documented in this encounter"
--- OUTSIDE RECORDS SUMMARY | ~2019-06-13 | XMS | Encounter Summary ---
Demographics + + + | Address | [address] | | | [place] [address] | + + + | Home Phone | | + + + | Preferred Language | Unknown | + + + | Marital Status | | + + + | Mu-Ism Affiliation | Unknown | + + + | Race | Unknown | + + + | Ethnic Group | Unknown | + + + Author + + + | Author | [facility] | | | and [place] | + + + | Organization | [facility] | | | and [place] | + + + | Address | Unknown | + + + | Phone | Unavailable | + + + Support + + + + + | Name | Relationship | Address | Phone | + + + + + | Poncho Oquendo | ECON | [address] | | | | | [facility] [place] | | | | | [address] | | + + + + + | Marta Upton | ECON | [place] | | | | | [address] | | + + + + + Care Team Providers + +------+ + | Care Office Engineer Name | Role | Phone | + [...] + + | 11/29/ | Surgery | [facility] | Pedro Green, | CYSTOSCOPY URETERAL | | 2018 | | [facility] | DO [address] [facility] | STENT stent removal | | | | [address] | [place] [address] | and replacement | | | | [address] | [phone] | | | | | [facility] [place] | | | | | | [address] | | | | | | [phone] | | | +--------+---------+ + + + [...] + + + | Blood Pressure | 107/53 | 11/29/2018 3:30 PM | | | | | PDT | | + + + + + | Pulse | 75 | 11/29/2018 3:30 PM | | | | | PDT | | + + + + + | Temperature | 36.4 C (97.5 F) | 11/29/2018 3:45 PM | | | | | PDT | | + + + + + | Respiratory Rate | 16 | 11/29/2018 2:45 PM | | | | | PDT | | + + + + + | Oxygen Saturation | 99% | 11/29/2018 3:30 PM | | | | | PDT | | + + + + + | Inhaled Oxygen | - | - | | | Concentration | | | | + + + + + | Weight | - | - | | + + + + + | Height | - | - | | + + + + + | Body Mass Index | - | - | | + + + + + documented in this encounter Discharge Instructions Instructions Jevon Morfin [...] out of the urethra Date Last Reviewed: 02/15/201619994528-9357 [employer]. [address] [place] [address]. All righ ts reserved. This information is [...] on your doctor's advice. Talk to your automatic gluing machine operator regarding the use of this medicine in children. Special care may be needed. What side effects may I notice from receiving this medicine? Side effects that you should report to your doctor or health out of school hours care worker as soon as p ossible: allergic reactions like skin rash, itching or hives, swelling of the face, lips, or tongue blue or purple color of the skin difficulty breathing fever less urine unusual bleeding, bruising unusual tired, weak vomiting yellowing of the eyes or skin Side effects that usually do not require medical attention (report to your doctor or health out of school hours care worker if they continue or are bothersome): dark [...] if you have any of these conditions: ouwrqvw-0-dgumdmcom dehydrogenase (G6PD) deficiency kidney disease an unusual or allergic reaction to phenazopyridine, other medicines, foods, dyes, or preser vatives or trying to get breast-feeding What should I watch for while using this medicine? Tell your doctor or health out of school hours care worker if your symptoms do not improve or [...] for sugar in your urine. Talk to [facility] health care provider. NOTE:This sheet is a summary. It may not cover all possible information. If you have questi ons about this medicine, talk to your doctor, pharmacist, or health care provider. Copyright 2019 [employer] Ciprofloxacin tablets Brand Name: Cipro What is [...] information carefully each time. Talk to your automatic gluing machine operator regarding the use of this medicine in children. Special care may be needed. What side effects may I notice from receiving this medicine? Side effects that you should report to your doctor or health out of school hours care worker as soon as p ossible: allergic reactions [...] attention (report to your doctor or health out of school hours care worker if they continue or are bothersome): dry [...] watery. Check with your doctor or health out of school hours care worker if you get an attack of severe diarrhea, nausea and vomiting, or if you sweat a lot. The loss of too much body fluid can make it haile gerous for you to take this medicine. This medicine may affect blood sugar levels. If you have diabetes, check with your doctor o r health out of school hours care worker before you change your diet or the [...] pharmacist, or health care provider. Copyright 2019 [employer] documented in this encounter Medications at Time [...] RN 11/29/18 15:58 documented in this encounter Plan of Treatment +--------+---------+ + + + | Date | Type | Specialty | Care Team | Description | +--------+---------+ + + + | 09/17/ | Office | Urology | Pedro Green, | | | 2019 | Visit | | DO [address] | | | | | | [place] [address] | | | | | | [phone] | | | | | | | | +--------+---------+ + + + documented as of this encounter Procedures + +--------+ + + + | Procedure Name | Priori | Date/Time | Associated Diagnosis | Comments | | | ty | | | | + +--------+ + + + | FL C ARM | Routin | 11/29/2018 | | [...] Cholangiocarcinoma | | | | | | ([facility]) | | + +--------+ + + + documented in this encounter Results BG Hernandez (11/29/2018 1:55 PM PDT) + + | [...] electrolytes in water | New Bag | 10/16/20 | | | | | (PLASMALYTE-148/NORMOSOL-R) | [...] | | | | | | longer, gywnul-kdl-cmypk use of | | | | | [...]
--- OUTSIDE RECORDS SUMMARY | ~2019-06-13 | XMS | Encounter Summary ---
Demographics + + + | Address | [address] | | | [place] [address] | + + + | Home Phone [...] Author + + + | Author | [facility] | + + + | Organization | [facility] | + + + | Address [...] Team Providers + +------+ + | Care Vegetable Loader Machine Operator Name | Role | Phone | + +------+ + | Tomasa Wagner | PCP | | + +------+ + Reason for Referral Consult to [place] (Routine) +--------+--------+ + + + + | Status | Reason | Specialty | Diagnoses / | Referred By | Referred To | | | | | Procedures | Contact | Contact | +--------+--------+ + + + + | Closed | | Obstetrics & | Diagnoses | [facility], | [facility] | | | | Gynecology | Pelvic mass | MD Miguel | [address] | | | | | Procedures | [address] | Margareth [address] | | | | | REQUEST TO | Dana Agosto | [place] | | | | | SURGERY | [address] | [address], [address] | | | | | ORTHODONTIST | [place], [place] | floor | | | | | MD | [address] | [place], [place] | | | | | EXPLORATORY | Phone: | [phone] | | | | | OF ABDOMEN | [phone] | Phone: | | | | | MD RESEC | Fax: | [phone] | | | | | OVAR | [phone] | Fax: | | | | | MALIG+JAKE+PE | | [phone] | | | | | LV NODES | | | +--------+--------+ + + + + Reason for Visit + + + | Reason | Comments | + + + | Imaging Review | | + + + | Preop | | + + + Office Visit - E/M Services (Routine) +--------+--------+ + + + + | Status | Reason | Specialty | Diagnoses / | Referred By | Referred To | | | | | Procedures | Contact | Contact | +--------+--------+ + + + + | Closed | | Obstetrics & | Diagnoses | [facility] | [facility] | | | | Gynecology | Complex | Epic Dept | [address] | | | | | Cystic Mass, | | [address] | | | | | elevated | | [place] | | | | | [address] per | | [address], [address] | | | | | appt notes | | floor | | | | | | | [place], [place] | | | | | | | [address] | | | | | | | Phone: | | | | | | | [phone] | | | | | | | Fax: | | | | | | | [phone] | +--------+--------+ + + + + Encounter Details +--------+---------+ + + + | Date | Type | Department | Care Team | Description | +--------+---------+ + + + | 05/28/ | Office | [facility] | Miguel Seymour, | Preoperative testing | | 2015 | Visit | [facility] | [address] | (Primary Dx); | | | | [address] | [address] | Pelvic mass | | | | [address] | [place], [place] | | | | | [address], [address] floor | [address] | | | | | [place], [place] | [phone] | | | | | [address] | | | | | | [phone] | | | +--------+---------+ + + + [...] + + + | Blood Pressure | 116/61 | 05/28/2014 9:00 AM | | | | | PDT | | + + + + + | Pulse | 89 | 05/28/2014 9:00 AM | | | | | PDT | | + + + + + | Temperature | 36.8 C (98.2 F) | 05/28/2014 9:00 AM | | | | | PDT | | + + + + + | Respiratory Rate | - | - | | + + + + + | Oxygen Saturation | 99% | 05/28/2014 9:00 AM | | | | | PDT | | + + + + + | Inhaled Oxygen | - | - | | | Concentration | | | | + + + + + | Weight | 81.6 kg (180 lb) | 05/28/2014 9:00 AM | | | | | PDT | | + + + + + | Height | 162.6 cm (5' 4") | 05/28/2014 9:00 AM | | | | | PDT | | + + + + + | Body Mass Index | 30.9 | 05/28/2014 9:00 AM | | | | | PDT | | + + + + + documented in this encounter Patient Instructions Patient Instructions Carlota Galindo MD - 05/28/2014 9:46 AM PDTWe are planning for your surgery for June 06, providing that Dr. Stanton is available. Your care team is: Dr. Miguel Henderson (Attending MD) Dr. Carlota Galindo ([place] Resident MD) Please call us if you have questions or concerns. documented in this encounter Progress Notes Carlota Galindo MD - 05/28/2014 8:16 AM PDTFormatting of this note might be diff erent from the original. [facility] ONCOLOGY RETURN VISIT 05/28/2014 Referring provider: Valeriy Carmona INTERVAL HISTORY: Doing well. Understands that results of CT noted increasing adnexal mass but no other lesio ns. Mild abdominal pain still present. PAST MEDICAL/SURGICAL/FAMILY/SOCIAL HX: no changes from note of 05/21/2014 CURRENT MEDICATIONS: Current Medication List Name Sig STOOL [...] VITAMIN ORAL Take by mouth once daily. REVIEW OF SYSTEMS: Constitutional:negative HEENT: negative Cardiovascular: negative Respiratory: negative Gastrointestinal: stable abdominal exam Genitourinary: negative Musculoskeletal:negative Integumentary:negative Neurologic: negative Psychiatric:+depression, +trouble sleeping, +anxiety PHYSICAL EXAM: BP 116/61 | Pulse 89 | Temp (Src) 36.8 C (98.2 F) (Oral) | Ht 1.626 m (5' 4") | Wt 81.6 47 kg (180 lb) | SpO2 99% | BMI 30.88 kg/(m^2) General: pleasant, slim woman in NAD HEENT: posterior oropharynx clear, sclera anicteric Extremities: normal ROM of the upper and lower extremities. No LE edema bilaterally SKIN: no rashes or lesions noted LABS/RADIOLOGIC STUDIES: 05/22/14: CT Chest, abdomen pelvis Findings: Chest: The structures at the base of the neck are unremarkable. No pathologically enlarged mediast inal lymph nodes are evident. The esophagus, trachea, aorta and branching vessels, pulmonary arterial structures are within normal limits. The heart is within normal limits without per icardial effusion. Lungs are clear, without pulmonary nodule or other abnormal opacification. No pleural effus ion or peumothorax is seen. Posterior left diaphragmatic hernia with small amount of fat ext ending from the intra-abdominal space into the left posterior intrathoracic space, stable as compared to . Abdomen/pelvis: The liver, pancreas, spleen and left adrenal gland are normal. Gallbladder is surgically ab sent. Surgical clip sseen in the region of the right adrenal gland, possibly related to part ial adrenalectomy. Both kidneys are within normal limits, without stone or hydronephrosis. No identifiable ure teral abnormalities. The distal portion of the left ureter is not definitively seen througho ut its entire length however, no evidence of ureteral dilation or stone is identified in its expected course. The stomach, duodenum, and small bowel are within normal limits. There is diverticulosis of the colon, without evidence of wall thickening or inflammatory change to suggest diverticul itis. The ileocecal junction is within normal limits. The appendix is within normal limits, measuring 5 mm in diameter. Free fluid is seen in the abdomen and pelvis, particularly adjacent the spleen, within the leaves of the mesentery, in the right paracolic and left paracolic gutters, and within the p jorden. No evidence of free intraperitoneal air. No pathologically enlarged abdominal or pelvic lymph nodes. There is scattered calcificatio n of the aorta. Abdominal and pelvic vessels otherwise appear unremarkable. The bladder is unremarkable. There has been significant interval enlargement of the previously described cystic structur e in the left adnexal region, with some thin internal septations and irregularity of the con tour of the soft tissue component in the wall of the cystic collection. This cystic collecti on now measures approximately 6.1 x 6.5 x 58 cm. Additionally, there is a soft tissue nodula r component at the inferior aspect of the cystic mass that measures approximately 3 x 2.1 cm . At the right anterior margin of the uterus, there is a new, somewhat irregularly-shaped so ft tissue lesion with a lobulated, almost nodular contour that measures approximately 3.5 x 3.6 x 4.0 cm. Musculoskeletal: No overt lytic or blastic lesions are seen. There is a small fat containing umbilical herni a, non inflamed. The subcutaneous soft tissues and muscles are otherwise unremarkable. Impression Interval development of large complex cystic mass in the left adnexal region, with either a ttached or separate soft tissue nodular mass at the inferior margin of the complex cystic ma ss. Interval development of prominent soft tissue mass in the right adnexal region adjacent the uterine fundus, as described above. Free fluid in the abdomen and pelvis. No evidence of recurrent abnormality in the region of the gallbladder fossa. Final Pathologic Diagnosis: 05/21/2014 Endometrium, biopsies: - Polypoid endocervical transformation zone mucosa - Fragments of endometrial stroma - Nega tive for hyperplasia, dysplasia or malignancy CA-125 on 05/21/2014: 225 ASSESSMENT: 53 y.o. 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 Endometrial biopsy negative for malignancy PLAN: 1. PARQ held with patient, and consent signed for exploratory laparotomy, JAKE, BSO, staging . Possible catheter for IP chemotherapy. Patient prefers to avoid laparoscopy. 2. PAT appointment today at 11 am. 3. Preop labs drawn today 4. Will send our notes to Dr. Stanton, and discuss if he would be available for the case i f needed. Patient seen and discussed with Dr. Kandis Galindo MD Obstetrics and Gynecology Resident PGY-4 I saw and evaluated the patient. I agree with the findings and the plan of care as shruthi ramirez in the resident s note. Patt Henderson M.D. Division of Gynecologic Oncology Department of Obstetrics and Gynecology documented in this encounter Plan of Treatment Not on filedocumented as of this encounter Procedures + +--------+ + + + | Procedure Name | Priori | Date/Time | Associated Diagnosis | Comments | | | ty | | | | + +--------+ + + + | RADIOLOGY | | 05/28/2014 | | Results for this | | | | 12:00 AM | | procedure are in the | | | | PDT | | results section. | + +--------+ + + + documented in this encounter Results INR (05/28/2014 10:10 AM PDT) + +-------+ + + + | Component | Value | Ref Range | Performed | Pathologist | | | | | At | Signature | + +-------+ + + + | INR | 1.04 | 0.90 - 1.20 INR | [facility] | | | | | | LABORATORY | | | | | | SERVICES, | | | | | | CORE | | + +-------+ + + + + + | Specimen | + + | Blood - Blood | + + + + + | Narrative | Performed At | + + + | INR Therapeutic ranges for full anticoagulation: INR for | [facility] | | Venous Thromboembolism (2.0 - 3.0) INR INR for | LABORATORY | | most patients with mech. valves (2.5 - 3.5) INR | [facility] | + + + + + + + + | Performing | Address | City/State/Zipcode | Phone Number | | Organization | | | | + + + + + | [facility] | [address] | [place] [address] | | | [facility] | [address] | | | + + + + + APTT (ACT. PART. THROMBO TIME) (05/28/2014 10:10 AM PDT) + +-------+ + + + | Component | Value | Ref Range | Performed | Pathologist | | | | | At | Signature | + +-------+ + + + | APTT | 30.3 | 26.0 - 36.0 | [facility] | | | | | seconds | LABORATORY | | | | | | SERVICES, | | | | | | CORE | | + +-------+ + + + + + | Specimen | + + | Blood - Blood | + + + + + | Narrative | Performed At | + + + | APTT Therapeutic Range: (75 - | [facility] | | 120) sec Heparin levels of 0.35 - 0.7 U/mL | LABORATORY | | | SERVICESSAM | + + + + + + + + | Performing | Address | City/State/Zipcode | Phone Number | | Organization | | | | + + + + + | [facility] | [address] | [place] [address] | | | SERVICES, [facility] | [address] | | | + + + + + COMPLETE METABOLIC SET (NA,K,CL,CO2,BUN,CREAT,GLUC,CA,AST,ALT,BILI TOTAL,ALK PHOS,ALB,PROT TOTAL) (05/28/2014 10:10 AM PDT) + +---------+ + + + | Component | Value | Ref Range | Performed | Pathologist | | | | | At | Signature | + +---------+ + + + | GLUCOSE, | 82 | 60 - 99 mg/dL | [facility] | | | PLASMA | | | LABORATORY | | | (LAB) | | | SERVICES, | | | | | | CORE | | + +---------+ + + + | BUN, PLASMA | 9 | 6 - 20 mg/dL | [facility] | | | (LAB) | | | LABORATORY | | | | | | SERVICES, | | | | | | CORE | | + +---------+ + + + | CREATININE | 0.69 | 0.60 - 1.10 | [facility] | | | PLASMA | | mg/dL | LABORATORY | | | (LAB) | | | SERVICES, | | | | | | CORE | | + +---------+ + + + | EGFR | >60 | >60 mL/min | [facility] | | | - | | | LABORATORY | | | TRINIDADIAN | | | SERVICES, | | | | | | CORE | | + +---------+ + + + | EGFR NON | >60 | >60 mL/min | [facility] | | | -DIMAS | | | LABORATORY | | | RICAN | | | SERVICES, | | | | | | CORE | | + +---------+ + + + | SODIUM, | 138 | 136 - 145 | [facility] | | | PLASMA | | mmol/L | LABORATORY | | | (LAB) | | | SERVICES, | | | | | | CORE | | + +---------+ + + + | POTASSIUM, | 4.2 | 3.4 - 5.0 | [facility] | | | PLASMA | | mmol/L | LABORATORY | | | (LAB) | | | SERVICES, | | | | | | CORE | | + +---------+ + + + | CHLORIDE, | 105 | 97 - 108 mmol/L | [facility] | | | PLASMA | | | LABORATORY | | | (LAB) | | | SERVICES, | | | | | | CORE | | + +---------+ + + + | TOTAL CO2, | 25 | 21 - 32 mmol/L | [facility] | | | PLASMA | | | LABORATORY | | | (LAB) | | | SERVICES, | | | | | | CORE | | + +---------+ + + + | CALCIUM, | 8.8 | 8.6 - 10.2 | [facility] | | | PLASMA | | mg/dL | LABORATORY | | | (LAB) | | | SERVICES, | | | | | | CORE | | + +---------+ + + + | BILIRUBIN | 0.6 | 0.3 - 1.2 mg/dL | [facility] | | | TOTAL | | | LABORATORY | | | | | | SERVICES, | | | | | | CORE | | + +---------+ + + + | TOTAL | 7.0 | 6.4 - 8.2 g/dL | [facility] | | | PROTEIN, | | | LABORATORY | | | PLASMA | | | SERVICES, | | | (LAB) | | | CORE | | + +---------+ + + + | ALBUMIN, | 3.7 | 3.5 - 4.7 g/dL | [facility] | | | PLASMA | | | LABORATORY | | | (LAB) | | | SERVICES, | | | | | | CORE | | + +---------+ + + + | ALK PHOS | 147 (H) | 42 - 98 U/L | [facility] | | | | | | LABORATORY | | | | | | SERVICES, | | | | | | CORE | | + +---------+ + + + | AST(SGOT) | 26 | <=41 U/L | [facility] | | | | | | LABORATORY | | | | | | SERVICES, | | | | | | CORE | | + +---------+ + + + | ALT (SGPT) | 27 | <=60 U/L | [facility] | | | | | | LABORATORY | | | | | | SERVICES, | | | | | | CORE | | + +---------+ + + + | ANION | 8 | 4 - 11 mmol/L | [facility] | | | GAP(ALB | | | LABORATORY | | | CORRECTED) | | | SERVICES, | | | | | | CORE | | + +---------+ + + + | POTASSIUM | No Hemo | | [facility] | | | CMNT | | | LABORATORY | | | | | | SERVICES, | | | | | | CORE | | + +---------+ + + + | BILI T CMNT | No Hemo | | [facility] | | | | | | LABORATORY | | | | | | SERVICES, | | | | | | CORE | | + +---------+ + + + | AST CMNT | No Hemo | | [facility] | | | | | | LABORATORY | | | | | | SERVICES, | | | | | | CORE | | + +---------+ + + + | ANION GAP | 8 | mmol/L | [facility] | | | | | | LABORATORY | | | | | | SERVICES, | | | | | | CORE | | + +---------+ + + + + + | Specimen | + + | Blood - Blood | + + + + + | Narrative | Performed At | + + + | GFR is estimated using the MDRD equation recommended by the | [facility] | | National Kidney Disease Education Program. Estimated GFR | LABORATORY | | Interpretive Information: <60 mL/min/1.73 sq m | SERVICES, CORE | | Chronic Kidney Disease <15 mL/min/1.73 sq m | | | Kidney Failure Estimated GFR greater that 60 mL/min/1.73 sq m is of | | | limited clinical value. The MDRD equation is not valid in the | | | following situations: - Patients under 18 years of age - Severe | | | malnutrition or obesity - Vegetarian diet - Rapidly changing kidney | | | function | | + + + + + + + + | Performing | Address | City/State/Zipcode | Phone Number | | Organization | | | | + + + + + | [facility] | [address] | [place] [address] | | | [place], [place] | [address] | | | + + + + + RADIOLOGY (05/28/2014 12:00 AM PDT) + + + | Narrative | Performed At | + + + | | | | | | + + + + + | Procedure Note | + + | Yamila Benitez - 05/31/2014 12:17 PM PDT | + + documented in this encounter Visit Diagnoses + + | Diagnosis | + + | Preoperative testing - Primary Preoperative examination, unspecified | + + | Pelvic mass Abdominal or pelvic swelling, mass or lump, unspecified site | + + documented in this encounter
--- OUTSIDE RECORDS SUMMARY | ~2019-06-13 | XMS | Encounter Summary ---
Demographics + + + | Address | [address] | | | [place] [address] | + + + | Home Phone | | + + + | Preferred Language | Unknown | + + + | Marital Status | Single | + + + | Christianity Affiliation | NON | + + + | Race | White | + + + | Ethnic Group | Not or | + + + Author + + + | Author | [facility] | + + + | Organization | [facility] | + + + | Address [...] Team Providers + +------+ + | Care Economic Historian Name | Role | Phone | + +------+ + | Tomasa Wagner | PCP | | + +------+ + Reason for Visit + + + | Reason | Comments | + + + | Medical Records | [facility] OUTSIDE [facility]ED[facility] REPORT | | Review | | + + + Encounter Details +--------+ + + + + | Date | Type | Department | Care Team | Description | +--------+ + + + + | 07/26/ | Abstract | [facility] | Tai Stanton, | Medical Records | | 2013 | | Center at [facility] [address] | [address] | [facility] ([facility] | | | | [facility] | [facility] | OUTSIDE PROCEDURE | | | | for [facility] and | [place], [place] | REPORT) | | | | [facility], [facility] [address] | [address] | | | | | [place], [place] | [phone] | | | | | [address] | | | | | | [phone] | | | +--------+ + + + [...]
--- OUTSIDE RECORDS SUMMARY | ~2019-06-13 | XMS | Encounter Summary ---
Demographics + + + | Address | [address] | | | [place] [address] | + + + | Home Phone | | + + + | Preferred Language | Unknown | + + + | Marital Status | | + + + | Gnosticism Affiliation | Unknown | + + + | Race | Unknown | + + + | Ethnic Group | Unknown | + + + Author + + + | Author | [facility] | | | and [place] | + + + | Organization | [facility] | | | and [place] | + + + | Address | Unknown | + + + | Phone | Unavailable | + + + Support + + + + + | Name | Relationship | Address | Phone | + + + + + | Poncho Oquendo | ECON | [address] | | | | | [place] | | | | | [address] | | + + + + + | Marta Upton | ECON | [place] | | | | | [address] | | + + + + + Care Team Providers + +------+ + | Care Machine Clerical Verifier Name | Role | Phone | + +------+ + | Valeriy Carmona DO | PCP | | + +------+ + Encounter Details +--------+ + + + + | Date | Type | Department | Care Team | Description | +--------+ + + + + | 07/30/ | Orders Only | [facility] | Reinaldo, | Gallbladder cancer, | | 2017 | | [facility] | Epifanio Soler MD [address] | carcinoma (HCC) | | | | [facility] [address] | | | | | [address] | [place] [address] | | | | | [place] [address] | [phone] | | | | | [phone] | | | +--------+ + + + [...] | 2019 | Visit | | DO Tom BERNABEYANICK [address]IGHT[address] | | | | | | [place] [address] | | | | | | [phone] | | | | | | | | +--------+---------+ + + + documented as of this encounter Visit Diagnoses + + | Diagnosis | + + | Gallbladder cancer, carcinoma (HCC) Malignant neoplasm of gallbladder | + + documented in this encounter"
--- OUTSIDE RECORDS SUMMARY | ~2019-06-13 | XMS | Encounter Summary ---
Demographics + + + | Address | [address] | | | [place] [address] | + + + | Home Phone [...] Team Providers + +------+ + | Care Skein Spooler Name | Role | Phone | + +------+ + | Tomasa Wagner | PCP | | + +------+ + Reason for Visit AUTH/CERT +--------+--------+ + + + + | Status | Reason | Specialty | Diagnoses / | Referred By | Referred To | | | | | Procedures | Contact | Contact | +--------+--------+ + + + + | Closed | | | | | | +--------+--------+ + + + + Encounter Details +--------+---------+ + + + | Date | Type | Department | Care Team | Description | +--------+---------+ + + + | 06/06/ | Surgery | 6A Intra Op [id number] | Miguel Seymour, | EXPLORATORY | | 2014 | | HIEN Carreon | [address] [facility] | LAPAROTOMY; TOTAL | | | | Rd [facility] | [facility] [address] | ABDOMINAL | | | | Hospital Admitting | [place], [place] | HYSTERECTOMY; | | | | Desk Located on the | [id number] | BILATERAL | | | | 9th floor | [phone] | SALPINGO-OOPHORECTOM | | | | [place], [place] | | Y; OMENTECTOMY; LEFT | | | | [id number] | | PELVIC AND | | | | | | PARA-AORTIC | | | | | | LYMPHADENECTOMY, | | | | | | specimens to | | | | | | pathology | +--------+---------+ + + + Social History [...] + + + | Blood Pressure | 123/69 | 06/09/2014 3:03 PM | | | | | PDT | | + + + + + | Pulse | 83 | 06/09/2014 3:03 PM | | | | | PDT | | + + + + + | Temperature | 36.5 C (97.7 F) | 06/09/2014 3:03 PM | | | | | PDT | | + + + + + | Respiratory Rate | 16 | 06/09/2014 3:03 PM | | | | | PDT | | + + + + + | Oxygen Saturation | 100% | 06/09/2014 3:03 PM | | | | | PDT | | + + + + + | Inhaled Oxygen | - | - | | | Concentration | | | | + + + + + | Weight | 81 kg (178 lb 9.2 | 06/06/2014 5:40 AM | | | | oz) | PDT | | + + + + + | Height | 162.6 cm (5' 4.02") | 06/06/2014 5:40 AM | | | | | PDT | | + + + + + | Body Mass Index | 30.64 | 06/06/2014 5:40 AM | | | | | PDT | | + + + + + documented in this encounter Discharge Summaries Miguel Seymour MD - 06/09/2014 12:23 PM PDTFormatting of this note might be different f rom the original. INPATIENT PHYSICIAN DISCHARGE SUMMARY Author: Roger Guadalupe MD PGY1 PHARMACY TECHNICIAN INFUSION Attending Physician: Dr. 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 Epidural placement 3. Serial laboratory studies. Consults: 1. Physical therapy 2. Occupational therapy 3. Nutrition Hospital Course: Aura Upton is a 53 y.o. with a recent diagnosis of left adnexal mass incident ally noted during routine surveillance secondary to her history of gallbladder cancer. 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 Lyons in 04/2012. No evidence of residual malignancy was not ed, however 2/8 positive lymph nodes in the gallbladder bed were noted, and extensive angiol ymphatic invasion noted but margins were negative. She then underwent neoadjuvant chemothera py with gemcitabine 1000 mg/m2 (day 1, 8) and capecitabine 750 mg/m2(BID x 14 days) for 4 cy cles (lasting 21 days each). Following the four cycles, then underwent capecitabine 665 mg/m 2 BID concurrent with radiation therapy-5040 katie total (28 rounds) 7/31/13-10/23/12. Aura underwent a surveillance CT on 03/18/2014 which noted a left ovarian cyst measuring 5 .5 x 5.8 x 2.6 cm. She then underwent a ultrasound which noted "the left ovary is abnormal. It is essentially replaced by complex cystic mass. This mass has multiple thick irregular se ptations." A discussion was held with Aura, and a full PARQ held for a diagnostic laparos copy with possible biopsies to ensure that this adnexal mass wasn't secondary to recurrence of her gallbladder cancer, followed by a exploratory laparotomy, total abdominal hysterectom y, bilateral salpingoopherectomy, and staging. Surgical consents were signed prior to the pr ocedure. Aura then underwent an uncomplicated xploratory laparotomy, total abdominal hysterectomy , bilateral salpingoopherectomy with resection of bilateral adnexal mass, omentectomy, left para-aortic lymph node dissection, left pelvic lymph node dissection. Her postoperative lester very was unremarkable. She had an epidural for anesthesia which was removed POD#2 and she wa s transitioned to PO medications with good pain control. Her chery was removed POD#1 and she was voiding without difficulty. By POD#3, she was meeting all postoperative goals and was r lashanda for discharge home. Medications: Medication List START taking these medications docusate sodium 100 mg Cap Commonly known as: COLACE Take 1 capsule by mouth two times daily. enoxaparin 40 mg/0.4 mL Syrg Commonly known as: LOVENOX Inject 0.4 mL under the skin (SUBC) once daily at noon. ibuprofen 600 mg Tab Commonly known as: MOTRIN Take 1 tablet by mouth every six hours as needed. lidocaine 5 %(700 mg/patch) Ptmd Commonly known as: LIDODERM Apply 1 patch to skin once daily. Apply patch to most painful area; Patch may remain in chris ce for up to 12 hours in any 24-hour period. metoclopramide HCl 5 mg Tab Commonly known as: REGLAN Take 1-2 tablets by mouth every six hours as needed for nausea/vomiting. ondansetron ODT 4 mg Tbdl Commonly known as: ZOFRAN ODT Take 1 tablet by mouth every twelve hours as needed. oxyCODONE (immediate release) 5 mg Tab Commonly known as: ROXICODONE Take 1-4 tablets by mouth every three hours as needed for moderate pain or severe pain. CONTINUE taking these medications MULTI VITAMIN ORAL PROBIOTIC ORAL STOOL SOFTENER ORAL STOP taking these medications HYDROcodone-acetaminophen 5-325 mg Tab Commonly known as: NORCO Where to Get Your Medications You need to oyster picker these prescriptions. We sent some of them to a specific pharmacy. Go t o these places to get your medications. [facility] - enoxaparin 40 mg/0.[address] [facility] [address] [facility] [address] Hours: 8AM-9PM Mon-Fri; 9-5:30PM Sat-Sun You may get the following medications from any pharmacy - docusate sodium 100 mg Cap - ibuprofen 600 mg Tab - lidocaine 5 %(700 mg/patch) Ptmd - metoclopramide HCl 5 mg Tab - ondansetron ODT 4 mg Tbdl - oxyCODONE (immediate release) 5 mg Tab Outstanding labs/studies: Final surgical pathology Diet: regular, no restrictions Activity: 1. No lifting of more than a gallon of milk for 6 weeks 2. Nothing in your vagina (douching, tampons, intercourse) for 6 weeks 3. Walking and going up and down stairs is ok. No strenuous physical activity 4. No soaking in the bath tub for 4 weeeks. Showers are ok 5. No driving for the next 2 weeks and/or as long as you are on narcotics like oxycodone Follow Up: To contact your provider, please call the [facility] clinic at [phone] during daytime hours. During evening or weekend hours, please call the [facility] paging steam oven operator at [phone] and ask for the Production Technician Oncology staff on-call. Reasons to call the doctor: 1. Difficulty breathing or unusual shortness of breath 2. Redness around or drainage from the incision site(s) 3. Temperature above 100.4 F 4. Increasing abdominal pain that is not relieved by pain medications 5. Persistent nausea or vomiting 6. Vaginal bleeding requiring > 1 pad per hour Doctors appointments: 1. Post op follow up with Dr. Henderson on 06/25 at 430PM. Disposition: home Condition: stable Discharging Physician: Roger Guadalupe MD PGY1 PHARMACY TECHNICIAN INFUSION Service Pager: [phone] Attending Physician: Dr. Henderson I saw and evaluated the patient. I agree with the findings and the plan of care as shruthi ramirez in the resident s note. Patt Henderson M.D. Division of Gynecologic Oncology Department of Obstetrics and Gynecology documented in this encounter Discharge Instructions Michelle Lipscomb RN - 06/09/2014Patient Education Materials: Home care after surgery, abdominal precautions Additional Instructions: Discharge Nurse: Michelle Dow Date: 06/09/2014 Discharge Time: 1:32 PM documented in this encounter Medications at Time of Discharge + + + +---------+ + + | Medication | Sig | Dispensed | Refills | Start | End Date | | | | | | Date | | + + + +---------+ + + | ibuprofen 600 mg | Take 1 tablet by | 80 | 2 | 06/10/19 | | | oral tablet | mouth every six | tablet | | 15 | | | | hours as needed. | | | | | + + + +---------+ + + | LACTOBACILLUS | Take 1 capsule by | | 0 | | | | ACIDOPHILUS | mouth once daily. | | | | | | (PROBIOTIC ORAL) | | | | | | + + + +---------+ + + | lidocaine 5 %(700 | Apply 1 patch to | 10 | 1 | 06/10/19 | | | mg/patch) topical | skin once daily. | patch | | 15 | | | adhesive | Apply patch to most | | | | | | patch,medicated | painful area; Patch | | | | | | | may remain in place | | | | | | | for up to 12 hours | | | | | | | in any 24-hour | | | | | | | period. | | | | | + + + +---------+ + + | MULTIVIT | Take 1 tablet by | | 0 | | | | &MINERALS/FERROUS | mouth once daily. | | | | | | FUM (MULTI VITAMIN | | | | | | | ORAL) | | | | | | + + + +---------+ + + documented as of this encounter Progress Miguel Gonzalez MD - 06/09/2014 8:22 AM PDTFormatting of this note might be different f rom the original. GYNECOLOGY ONCOLOGY INPATIENT PROGRESS NOTE Hospital Day: 3 Author: PONCHO ARRIOLA MD Attending Physician: Miguel Seymour MD ID: 53 year old POD#3 from ex-lap, JAKE, BSO, omentectomy, left para-aortic lymph node diss ection, left pelvic lymph node dissection. EBL 100 ml. Frozen consistent with poorly differe ntiated malignancy of uncertain origin. Interval events: Epidural removed Had episode of emesis x1 this AM Subjective: Feels well. She is generally tolerating a normal diet with one episode of emesis this morni ng which she attributes to nausea from the pain medication. She has been passing gas. Ambula ting regularly. Voiding. Pain controlled on PO medications. She would like to go home today. Medications: Scheduled Medications Medication Dose Route Frequency Last Rate acetaminophen (TYLENOL) tablet 650 mg 650 mg oral Q6H docusate sodium (COLACE) capsule 100 mg 100 mg oral BID enoxaparin (LOVENOX) injection 40 mg 40 mg subcutaneous QPM ibuprofen (MOTRIN) tablet 600 mg 600 mg oral Q6H lidocaine (LIDODERM) 5 %(700 mg/patch) patch 1 patch 1 patch transdermal Q24H PRN Medications Medication Dose Route Frequency Last Rate calcium carbonate chewable (TUMS) tablet 400 mg elemental 1,000 mg total salt oral PRN metoclopramide HCl (REGLAN) injection 10 mg 10 mg intravenous Q4H PRN nalOXone (NARCAN) injection intravenous PRN oxyCODONE (immediate release) (ROXICODONE) tablet 10-20 mg 10-20 mg oral Q3H PRN phenol (CEPASTAT) lozenge 14.5 mg 1 lozenge oral PRN phenol (CHLORASEPTIC) 1.4 % spray 1-5 spray 1-5 spray oral Q2H PRN simethicone chew (MYLICON) tablet 80 mg 80 mg oral TID PRN Physical Exam: Last Vitals: BP 105/57 | Pulse 86 | Temp 36.8 C (98.2 F) | RR 16 | Ht 1.626 m (5' 4.02" ) | Wt 81 kg (178 lb 9.2 oz) | SpO2 96% | BMI 30.64 kg/(m^2) 24 Hour Vital Min/Max: Systolic (24hrs), Av mmHg, Min:105 mmHg, Max:127 mmHg Diastolic (24hrs), Av mmHg, Min:57 mmHg, Max:71 mmHg Pulse Min: 82 Max: 102 Temp Min: 36.4 C (97.5 F) Max: 37.6 C (99.7 F) Resp Min: 15 Max: 16 SpO2 Min: 96 % Max: 98 % Intake/Output Summary (Last 24 hours) at 06/09/14 0824 Last data filed at 06/09/14 0500 Gross per 24 hour Intake 2070 ml Output 3275 ml Net -1205 ml UOP: 38cc/hr over night General Appearance: No apparent distress Heart: RRR. No m/r/g to my exam Lungs: CTAB Abdomen: soft, non tender, hypoactive bowel sounds Incision: meriplex in place. Old blood on bottom aspect of bandage, stable. Extremities: Warm and well perfused, SCDs on bilaterally Labs: Lab Results Component Value Date WBC 6.62 06/09/2014 HB 10.4 06/09/2014 HCT 31.9 06/09/2014 PLT 175 06/09/2014 MCV 90.9 06/09/2014 RDW 43.0 06/09/2014 Lab Results Component Value Date NA 138 06/09/2014 K 3.8 06/09/2014 CL 103 06/09/2014 BICARB 29 06/09/2014 BUN 6 06/09/2014 CR 0.78 06/09/2014 GLU 91 06/09/2014 CA 8.2 06/09/2014 AST 26 05/28/2014 ALT 27 05/28/2014 AP 147 05/28/2014 TBILI 0.6 05/28/2014 TP 7.0 05/28/2014 ALB 2.4 06/09/2014 Assessment and Plan: 53 yo POD#3 from an exploratory laparotomy, total abdominal hysterecto my, bilateral salpingoopherectomy with resection of bilateral adnexal mass, omentectomy, lef t para-aortic lymph node dissection, left pelvic lymph node dissection. Hemodynamically stab le. Neuro: Pain controlled on PO medications Respiratory: Sating well on RA. -aggressive pulmonary cares -encourage IS use CV: RRR. Hemodynamically stable. -continue to monitor FEN/GI: ADAT. Ondansetron PRN. Little concern for ileus as she has been passing gas and radha erating regular diet well. If she feels persistently nauseated over the course of the day, s he will stay another night in the hospital. Replete lytes PRN Renal/: UOP adequate overnight. -continue to monitor Heme: Hct stable. EBL 100 ml. No concern for ongoing bleeding. -daily CBC Onc: Hx of gallbladder adenocarcinoma. Unable to tell from frozen section etiology of curre ntly malignancy. -await final pathology which will dictate further treatments. MS: PT, OT ordered. ID: Febrile to 102.6 on POD#0, has remained afebrile since that time. Blood and urine cultu res negative. No concern for PE or infection at this time. -continue to monitor Prophylaxis: SCDs, Lovenox. Will discharge on 14 day course of lovenox. Dispo: Today if nausea resolves, otherwise tomorrow. Pt seen and evaluated with Dr. Henderson who agrees with the above assessment and plan. Roger Guadalupe MD PGY1 PHARMACY TECHNICIAN INFUSION Service Pager: [phone] I saw and evaluated the patient. I agree with the findings and the plan of care as shruthi ramirez in the resident s note. Patt Henderson M.D. Division of Gynecologic Oncology Department of Obstetrics and Gynecology Raghu Antony MD - 06/08/2014 1:09 PM PDTEpidural removed. Tip intact. Coagulation parameters appropria te for pulling. APS will sign off. Please call us back if we can be of further assistance. Primary service notified. RAGHU DALY MD [facility] [address] [facility], 4th Floor Mail Code: CH4P [place], [place] [address] Raghu Antony MD - 06/08/2014 8:52 AM PDT INPATIENT ADULT PAIN SERVICE NEURAXIAL BLOCK PROGRESS NOTE 06/08/2014 Author: RAGHU DALY MD Pain Service Attending Physician: Raghu Daly MD POD# 2 Status post: Ex-lap, JAKE, BSO, omentectomy, left para-aortic lymph node dissection , left pelvic lymph node dissection. EBL 100 ml. Frozen consistent with poorly differentiate d malignancy of uncertain origin Interval events since last APS visit: No changes. Blood pressure has been improved. Ms. Upton complains of minimal incisional pain. Her pain score at rest is 2/10. With activity, her pain score is 2/10. Specific activitie s that exacerbate Ms. Upton's pain include most activities. Ms. Upton is satisfied wi th current level of pain. History of chronic or preoperative pain: yes: location: midline incisional pain.. Typical i ntensity 4-06/23 Prior to hospitalization: Opioids: Hydrocodone as hydrocodone/acetaminophen : pt not s ure how many tabs per day ROS/Side Effects: General: negative. Nausea/Vomiting: none Pruritus: none Numbness/Weakness: none Low BP: none Dizziness: none Sedation: none Activity level: Ambulatory Diet: Full liquids/Reg Diet/Tube Feeds Medications: Scheduled Medications Medication Dose Route Frequency Last Rate docusate sodium (COLACE) capsule 100 mg 100 mg oral BID enoxaparin (LOVENOX) injection 40 mg 40 mg subcutaneous QPM lidocaine (LIDODERM) 5 %(700 mg/patch) patch 1 patch 1 patch transdermal Q24H PRN Medications Medication Dose Route Frequency Last Rate acetaminophen (TYLENOL) suppository 325-650 mg 325-650 mg rectal Q4H PRN acetaminophen (TYLENOL) tablet 1,000 mg 1,000 mg oral Q6H PRN metoclopramide HCl (REGLAN) injection 10 mg 10 mg intravenous Q4H PRN nalBUPHine (NUBAIN) injection 2.5 mg 2.5 mg intravenous Q15MIN PRN nalOXone (NARCAN) injection intravenous PRN ondansetron (ZOFRAN) injection 4 mg 4 mg intravenous Q12H PRN phenol (CEPASTAT) lozenge 14.5 mg 1 lozenge oral PRN phenol (CHLORASEPTIC) 1.4 % spray 1-5 spray 1-5 spray oral Q2H PRN simethicone chew (MYLICON) tablet 80 mg 80 mg oral TID PRN Continuous Medications Medication Dose Route Frequency Last Rate bupivacaine 0.05 %-HYDROmorphone 20 mcg/mL epidural infusion epidural CONTINUOUS 5 mL /hr at 06/07/14 1908 Type: Epidural Rate: off for about 1 hour on 06/08/2014. Anticoagulants: Enoxaparin 40mg subcutaneous daily, last dose given yesterday at 2100 hrs. Lab Results Component Value Date INRPT 1.04 05/28/2014 PLT 149* 06/08/2014 APTT 30.3 05/28/2014 Opioids: Oxycodone: oxycodone, generic 5-15 mg every 3 hours as needed. Other analgesics: Lidoderm patch Other psychoactive medications: None Physical Exam: Last Vitals:BP 97/48[RN notified[ | Pulse 95 | Temp 36.9 C (98.4 F) | RR 16 | Ht 1.626 m (5' 4.02") | Wt 81 kg (178 lb 9.2 oz) | SpO2 95% | BMI 30.64 kg/(m^2) 24 hour Vitals min/max : Systolic (24hrs), Av mmHg, Min:92 mmHg, Max:126 mmHg Diastolic (24hrs), Av mmHg, Min:48 mmHg, Max:69 mmHg Pulse Min: 84 Max: 106 Temp Min: 36.9 C (98.4 F) Max: 37.4 C (99.3 F) Resp Min: 16 Max: 17 SpO2 Min: 93 % Max: 100 % General Appearance and Neurological Examination: Mental Status: Alert Orientation: Oriented Sensory Level: intact Motor: bilateral lower extremity(ies) -- No block: full flexion and extension of hip, knee and foot Neuraxial Catheter: Location: T9-11;depth at skin 10 cm (Placed at 10 cm) Dressing: Intact Exit Site: Clean and Non-tender Assessment: Ms. Upton rates her pain relief as good. My personal assessment is concordant with this evaluation Diagnosis: 1. Acute post-oprerative pain 2. Chronic Pain 3. Left adnexal mass 4. Hx of cholangiocarcinoma 5. Ex-lap, JAEK, BSO, omentectomy, left para-aortic lymph node dissection, left pelvic lymp h node dissection. My treatment plan is: Will return to discontinue the catheter. Ms. Upton would like to have one more hour wit h the infusion off and the catheter still in place (just to make sure pain is well-controlle d) before we pull the catheter. We will return to discontinue it. I discussed our findings and recommendations with primary care team provider manager insurance/oncology. RAGHU DALY MD BILLING INFORMATION [facility] DEPARTMENT: [phone] Place of Service:- Inpatient Date of Service: 06/08/2014 CSN: [id number] Suggested Modifier: None Suggested CPT: 30477 - Daily mgmt epidural/subarachnoid drug administration Prolonged service: n/a Counseling and Coordination: n/a egeest, MD Miguel - 06/08/2014 8:00 AM PDT GYNECOLOGY ONCOLOGY INPATIENT PROGRESS NOTE Hospital Day: 1 Author: PONCHO ARRIOLA MD Attending Physician: Miguel Seymour MD ID: 53 year old POD#2 from ex-lap, JAKE, BSO, omentectomy, left para-aortic lymph node diss ection, left pelvic lymph node dissection. EBL 100 ml. Frozen consistent with poorly differe ntiated malignancy of uncertain origin. Interval events: -chery discontinued -seen by PT/OT, will discharge to home with family help. -Had fever to 39 immediately post-op, blood and urine cx negative Subjective: Feels well. Tolerating normal diet. Ambulating regularly. No n/v. Voiding. Has not yet pass ed flatus. Pain controlled on epidural. Medications: Scheduled Medications Medication Dose Route Frequency Last Rate docusate sodium (COLACE) capsule 100 mg 100 mg oral BID [START ON 06/08/2014] enoxaparin (LOVENOX) injection 40 mg 40 mg subcutaneous QPM lidocaine (LIDODERM) 5 %(700 mg/patch) patch 1 patch 1 patch transdermal Q24H PRN Medications Medication Dose Route Frequency Last Rate acetaminophen (TYLENOL) suppository 325-650 mg 325-650 mg rectal Q4H PRN acetaminophen (TYLENOL) tablet 1,000 mg 1,000 mg oral Q6H PRN metoclopramide HCl (REGLAN) injection 10 mg 10 mg intravenous Q4H PRN nalBUPHine (NUBAIN) injection 2.5 mg 2.5 mg intravenous Q15MIN PRN nalOXone (NARCAN) injection intravenous PRN ondansetron (ZOFRAN) injection 4 mg 4 mg intravenous Q12H PRN phenol (CEPASTAT) lozenge 14.5 mg 1 lozenge oral PRN phenol (CHLORASEPTIC) 1.4 % spray 1-5 spray 1-5 spray oral Q2H PRN simethicone chew (MYLICON) tablet 80 mg 80 mg oral TID PRN Physical Exam: Last Vitals: BP 97/48[RN notified[ | Pulse 95 | Temp 36.9 C (98.4 F) | RR 16 | Ht 1.626 m (5' 4.02") | Wt 81 kg (178 lb 9.2 oz) | SpO2 95% | BMI 30.64 kg/(m^2) 24 Hour Vital Min/Max: Systolic (24hrs), Av mmHg, Min:97 mmHg, Max:126 mmHg Diastolic (24hrs), Av mmHg, Min:48 mmHg, Max:69 mmHg Pulse Min: 93 Max: 106 Temp Min: 36.9 C (98.4 F) Max: 37.4 C (99.3 F) Resp Min: 16 Max: 17 SpO2 Min: 93 % Max: 99 % Intake/Output Summary (Last 24 hours) at 06/08/14 1239 Last data filed at 06/08/14 1100 Gross per 24 hour Intake 2595 ml Output 2225 ml Net 370 ml UOP: 68cc/hr over night General Appearance: No apparent distress Heart: RRR. No m/r/g to my exam Lungs: CTAB Abdomen: soft, non tender, hypoactive bowel sounds Incision: meriplex in place. Old blood on bottom aspect of bandage, stable. Extremities: Warm and well perfused, SCDs on bilaterally Labs: Lab Results Component Value Date WBC 7.86 06/07/2014 HB 11.0 06/07/2014 HCT 35.1 06/07/2014 PLT 170 06/07/2014 MCV 92.1 06/07/2014 RDW 44.7 06/07/2014 Lab Results Component Value Date NA 134 06/07/2014 K 3.6 06/07/2014 CL 101 06/07/2014 BICARB 28 06/07/2014 BUN 8 06/07/2014 CR 0.93 06/07/2014 GLU 95 06/07/2014 CA 7.5 06/07/2014 AST 26 05/28/2014 ALT 27 05/28/2014 AP 147 05/28/2014 TBILI 0.6 05/28/2014 TP 7.0 05/28/2014 ALB 2.2 06/07/2014 Blood and urine cultures negative Assessment and Plan: 53 yo POD#2 from an exploratory laparotomy, total abdominal hysterecto my, bilateral salpingoopherectomy with resection of bilateral adnexal mass, omentectomy, lef t para-aortic lymph node dissection, left pelvic lymph node dissection. Hemodynamically stab le. Neuro: Epidural in place. Will transition to po pain medications today per APS. Hx of chron ic pain, will consider likely tolerance when switching to PO. Respiratory: Sating well on RA. -aggressive pulmonary cares -encourage IS use CV: RRR. Hemodynamically stable. -continue to monitor FEN/GI: ADAT Replete lytes PRN Renal/: UOP adequate overnight. -continue to monitor Heme: Hct 43.3>35.1> 32. EBL 100 ml. No concern for ongoing bleeding. -daily CBC Onc: Hx of gallbladder adenocarcinoma. Unable to tell from frozen section etiology of curre ntly malignancy. -await final pathology which will dictate further treatments. MS: PT, OT ordered. ID: Febrile to 102.6 on POD#0, has remained afebrile since that time. Blood and urine cultu res negative. No concern for PE or infection at this time. -continue to monitor Prophylaxis: SCDs, Lovenox to start 18 hours postoperatively. Will discharge on 14 day cour se of lovenox. Pt seen and evaluated with Dr. Henderson who agrees with the above assessment and plan. Roger Guadalupe MD PGY1 PHARMACY TECHNICIAN INFUSION Service Pager: [phone] I saw and evaluated the patient. I agree with the findings and the plan of care as shruthi ramirez in the resident s note. Patt Henderson M.D. Division of Gynecologic Oncology Department of Obstetrics and Gynecology Raghu Antony MD - 06/07/2014 9:26 AM PDTThis is late entry for 06/06/2014. Ms. Upton had some low blo od pressure last night so we were not able to increase the epidural. We did do some educati on around using the PCEA button and pain is now better controlled. Ms. Upton has been se en this morning and is doing well (see separate note in EPIC). RAGHU DALY MD [facility] [address] [facility] [facility] Mail Code: CH4P [place], [place] [address] Raghu Antony MD - 06/07/2014 7:39 AM PDT INPATIENT ADULT PAIN SERVICE NEURAXIAL BLOCK PROGRESS NOTE 06/07/2014 Author: KATHERINE LION MD Pain Service Attending Physician: Raghu Daly MD POD# 1. Status post: ex-lap, JAKE, BSO, omentectomy, left para-aortic lymph node dissectio n, left pelvic lymph node dissection. EBL 100 ml. 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 Interval events since last APS visit: --Febrile overnight. --Mild hypotension overnight. --Received 1L bolus. --Pt did not understand PCEA, so received education on this overnight. --Pain control improved this AM Ms. Upton complains of midline abdominal pain. Her pain score at rest is 6/10. With activity, her pain score is 2/10. Specific activitie s that exacerbate Ms. Upton's pain include most activities. Ms. Upton is satisfied wi th current level of pain. History of chronic or preoperative pain: yes: location: midline incisional pain.. Typical intensity 4-5/10 Prior to hospitalization: Opioids: Hydrocodone as hydrocodone/acetaminophen 5/325: pt not sure how many tabs per day ROS/Side Effects: General: negative. Nausea/Vomiting: none Pruritus: none Numbness/Weakness: none Low BP: Mostly resolved now- was low parts of last evening. Dizziness: none Sedation: none Activity level: In bed all the time Diet: Full liquids/Reg Diet/Tube Feeds Medications: Scheduled Medications Medication Dose Route Frequency Last Rate docusate sodium (COLACE) capsule 100 mg 100 mg oral BID enoxaparin (LOVENOX) injection 40 mg 40 mg subcutaneous QNOON potassium chloride IV (peripheral line) 20 mEq 20 mEq intravenous ONCE PRN Medications Medication Dose Route Frequency Last Rate acetaminophen (TYLENOL) suppository 325-650 mg 325-650 mg rectal Q4H PRN acetaminophen (TYLENOL) tablet 1,000 mg 1,000 mg oral Q6H PRN metoclopramide HCl (REGLAN) injection 10 mg 10 mg intravenous Q4H PRN nalBUPHine (NUBAIN) injection 2.5 mg 2.5 mg intravenous Q15MIN PRN nalOXone (NARCAN) injection intravenous PRN ondansetron (ZOFRAN) injection 4 mg 4 mg intravenous Q12H PRN phenol (CEPASTAT) lozenge 14.5 mg 1 lozenge oral PRN phenol (CHLORASEPTIC) 1.4 % spray 1-5 spray 1-5 spray oral Q2H PRN simethicone chew (MYLICON) tablet 80 mg 80 mg oral TID PRN Continuous Medications Medication Dose Route Frequency Last Rate bupivacaine 0.05 %-HYDROmorphone 20 mcg/mL epidural infusion epidural CONTINUOUS 4 mL /hr at 06/06/14 2305 lactated ringers IV 125 mL/hr intravenous CONTINUOUS 125 mL/hr (06/07/14 4138) Type: Epidural Rate: 4 mL/hour Anticoagulants: enoxaparin 40 mg daily, last dose 05 today Lab Results Component Value Date INRPT 1.04 05/28/2014 PLT 170 06/07/2014 APTT 30.3 05/28/2014 Opioids: None Other analgesics: acetaminophen IV 1000mg/24h Other psychoactive medications: None Physical Exam: Last Vitals:BP 88/44 | Pulse 101 | Temp 37.7 C (99.9 F) | RR 16 | Ht 1.626 m (5' 4.02") | Wt 81 kg (178 lb 9.2 oz) | SpO2 94% | BMI 30.64 kg/(m^2) 24 hour Vitals min/max : Systolic (24hrs), Av mmHg, Min:83 mmHg, Max:132 mmHg Diastolic (24hrs), Av mmHg, Min:37 mmHg, Max:64 mmHg Pulse Min: 65 Max: 116 Temp Min: 36.5 C (97.7 F) Max: 39.2 C (102.6 F) Resp Min: 11 Max: 29 SpO2 Min: 93 % Max: 100 % General Appearance and Neurological Examination: Mental Status: Alert Orientation: Oriented Sensory Level: deferred Motor: bilateral lower extremity(ies) -- No block: full flexion and extension of hip, knee and foot Neuraxial Catheter: Location: T9-11;depth at skin 10 cm (placed at 10 cm) Dressing: Intact Exit Site: Clean and Non-tender Assessment: Ms. Upton rates her pain relief as good. My personal assessment is concordant with this evaluation Chery status: Epidural: at thoracic level; If Chery is in place, it may be removed if deem ed appropriate by primary care team Diagnosis: 1. Acute post-oprerative pain 2. Chronic Pain 3. Left adnexal mass 4. Hx of cholangiocarcinoma My treatment plan is: Continue neuraxial infusion, titrate infusion as needed. Please change enoxaparin administration time to 2100. We are also planning on increasing the basal rate on the epidural as blood pressure tolerat es. Pain is controlled but Aura is having to push the PCEA button quite often. We have ordered some Lidoderm patches for her left upper part of the incision (next to it) where Aura is painful. I discussed our findings and recommendations with primary care team provider . RAGHU DALY MD [facility] [address] [facility], 4th Floor Mail Code: CH4P [place], [place] [address] BILLING INFORMATION [facility] DEPARTMENT: [phone] Place of Service:- Inpatient Date of Service: 06/07/2014 CSN: [id number] Suggested Modifier: GC - Resident Involved Suggested CPT: 56492 - Daily mgmt epidural/subarachnoid drug administration Prolonged service: n/a Counseling and Coordination: n/a Miguel Alejandro MD - 06/07/2014 6:30 AM PDT GYNECOLOGY ONCOLOGY INPATIENT PROGRESS NOTE Hospital Day: 0 Author: PONCHO ARRIOLA MD Attending Physician: Miguel Seymour MD ID: 53 year old POD#1 from ex-lap, JAKE, BSO, omentectomy, left para-aortic lymph node diss ection, left pelvic lymph node dissection. EBL 100 ml. Frozen consistent with poorly differe ntiated malignancy of uncertain origin. Interval events: -febrile overnight to 102.6, but then returned to afebrile -given 1 liter bolus Subjective: Doing ok. Pain coverage improved now. Previously had a window in her epidural that was caus ing discomfort on there left side. No flatus. Chery in place. Hasn't been OOB. Had some mac and cheese and ice cream last night. No nausea or vomiting. Really hoping to hear what the r esults of the pathology are to plan next steps. Medications: Scheduled Medications Medication Dose Route Frequency Last Rate docusate sodium (COLACE) capsule 100 mg 100 mg oral BID [START ON 06/07/2014] enoxaparin (LOVENOX) injection 40 mg 40 mg subcutaneous QNOON PRN Medications Medication Dose Route Frequency Last Rate acetaminophen (TYLENOL) suppository 325-650 mg 325-650 mg rectal Q4H PRN acetaminophen (TYLENOL) tablet 325-650 mg 325-650 mg oral Q4H PRN metoclopramide HCl (REGLAN) injection 10 mg 10 mg intravenous Q4H PRN nalBUPHine (NUBAIN) injection 2.5 mg 2.5 mg intravenous Q15MIN PRN nalOXone (NARCAN) injection intravenous PRN ondansetron (ZOFRAN) injection 4 mg 4 mg intravenous Q12H PRN phenol (CEPASTAT) lozenge 14.5 mg 1 lozenge oral PRN phenol (CHLORASEPTIC) 1.4 % spray 1-5 spray 1-5 spray oral Q2H PRN simethicone chew (MYLICON) tablet 80 mg 80 mg oral TID PRN Physical Exam: Last Vitals: BP 100/52 | Pulse 82 | Temp 36.6 C (97.9 F) | RR 16 | Ht 1.626 m (5' 4.02" ) | Wt 81 kg (178 lb 9.2 oz) | SpO2 96% | BMI 30.64 kg/(m^2) O2 Delivery Device: None (room air) (06/06/141999) 24 Hour Vital Min/Max: Systolic (24hrs), Av mmHg, Min:83 mmHg, Max:132 mmHg Diastolic (24hrs), Av mmHg, Min:37 mmHg, Max:70 mmHg Pulse Av.4 Min: 65 Max: 116 Temp Av.6 C (97.8 F) Min: 36.5 C (97.7 F) Max: 36.6 C (97.9 F) Resp Av.9 Min: 11 Max: 29 SpO2 Av.7 % Min: 96 % Max: 100 % on RA Intake/Output Summary (Last 24 hours) at 06/06/14 1730 Last data filed at 06/06/14 1616 Gross per 24 hour Intake 3805 ml Output 1570 ml Net 2235 ml UOP: 72/hr General Appearance: No apparent distress Heart: RRR. No m/r/g to my exam Lungs: slightly diminished at bases. No crackles Abdomen: soft, non tender, hypoactive bowel sounds Incision: meriplex in place. Old blood on bottom aspect of bandage, stable. Extremities: Warm and well perfused, SCDs on bilaterally Labs: Lab Results Component Value Date WBC 6.37 05/28/2014 HB 14.5 05/28/2014 HCT 43.3 05/28/2014 PLT 194 05/28/2014 MCV 88.0 05/28/2014 RDW 42.0 05/28/2014 Lab Results Component Value Date NA 138 05/28/2014 K 4.2 05/28/2014 CL 105 05/28/2014 BICARB 25 05/28/2014 BUN 9 05/28/2014 CR 0.69 05/28/2014 GLU 82 05/28/2014 CA 8.8 05/28/2014 AST 26 05/28/2014 ALT 27 05/28/2014 AP 147 05/28/2014 TBILI 0.6 05/28/2014 TP 7.0 05/28/2014 ALB 3.7 05/28/2014 Assessment and Plan: 53 yo POD#1 from an exploratory laparotomy, total abdominal hysterecto my, bilateral salpingoopherectomy with resection of bilateral adnexal mass, omentectomy, lef t para-aortic lymph node dissection, left pelvic lymph node dissection. Hemodynamically stab le, though with some tachycardia and briefly febrile overnight. Neuro: Epidural in place. Appreciate APS involvement. Hx of chronic pain. Continue to monitor. Respiratory: Sating well on RA. -aggressive pulmonary cares -encourage IS use CV: RRR. Hemodynamically stable. Previously tachycardic, suspect related to pain control an d temperature overnight. -continue to monitor FEN/GI: ADAT Replete lytes PRN Renal/: good urine output. -garth discontinue chery later today -continue to monitor Heme: Hct 43.3 preoperatively. EBL 100 ml. 35.1 today. -daily CBC Onc: Hx of gallbladder adenocarcinoma. Unable to tell from frozen section etiology of curre ntly malignancy. -await final pathology which will dictate further Treatments. MS: PT, OT ordered. ID: Febrile to 102.6 overnight, now afebrile though with mild tachycardia. Blood culture se nt last night. Suspect tachycardia also related to pain control. Low suspicion for infection or PE at this time, but will consider further testing upon discussion with staff. -continue to monitor -follow up blood culture results. Prophylaxis: SCDs, Lovenox to start 18 hours postoperatively. Will discharge on 14 day cour se of lovenox. MD PONCHO Millard MD I saw and evaluated the patient. I agree with the findings and the plan of care as shruthi ramirez in the resident s note. Patt Henderson M.D. Division of Gynecologic Oncology Department of Obstetrics and Gynecology Kaitlin Serrano MD - 06/06/2014 11:40 PM PDTGyn Onc PM Crosscover Note Paged regarding temp of 39.2. To bedside to examine patient. Pt is POD#0 s/o ex-lap, JAKE, B SO, omentectomy, left para-aortic lymph node dissection, left pelvic lymph node dissection. EBL 100 ml. Frozen consistent with poorly differentiated malignancy of uncertain origin. BP 89/47 | Pulse 113 | Temp 39.2 C (102.6 F) | RR 16 | Ht 1.626 m (5' 4.02") | Wt 81 kg (178 lb 9.2 oz) | SpO2 94% | BMI 30.64 kg/(m^2) Gen: pt sitting up in bed. Well appearing. Not warm or diaphoretic CV: mild tachycardia Lungs: clear anteriorly Abd: soft, appropriately ttp. Some shadowing on posterior aspect of bandage. Ext: wwp, SCDs in place. Has epidural. Pt reports she has felt occasional chills intermittently today but overall fe els quite well. Was not feeling feverish at all. Clinically pt is very well appearing. Will give tylenol and observe for now. Pt is <12h pos t-op. If persistent fever, will order blood and urine cultures and consider chest xray. Plan d/w patient who will let her RN know if she is feeling unwell. Kaitlin Greenfield M.D. Resident Physician, PGY 4 Department of Obstetrics & Gynecology de Jeff Grady MD - 06/06/2014 5:29 PM PDTFormatting of this note might be different from the jaime siddharth GYNECOLOGY ONCOLOGY INPATIENT PROGRESS NOTE Hospital Day: 0 Author: PONCHO ARRIOLA MD Attending Physician: Miguel Seymour MD ID: 53 year old POD#0 from ex-lap, JAKE, BSO, omentectomy, left para-aortic lymph node diss ection, left pelvic lymph node dissection. EBL 100 ml. Frozen consistent with poorly differe ntiated malignancy of uncertain origin. Subjective: Doing ok. No pain or nausea. Sad regarding cancer-hoping it is not recurrent g allbladder disease. Medications: Scheduled Medications Medication Dose Route Frequency Last Rate docusate sodium (COLACE) capsule 100 mg 100 mg oral BID [START ON 06/07/2014] enoxaparin (LOVENOX) injection 40 mg 40 mg subcutaneous QNOON PRN Medications Medication Dose Route Frequency Last Rate acetaminophen (TYLENOL) suppository 325-650 mg 325-650 mg rectal Q4H PRN acetaminophen (TYLENOL) tablet 325-650 mg 325-650 mg oral Q4H PRN metoclopramide HCl (REGLAN) injection 10 mg 10 mg intravenous Q4H PRN nalBUPHine (NUBAIN) injection 2.5 mg 2.5 mg intravenous Q15MIN PRN nalOXone (NARCAN) injection intravenous PRN ondansetron (ZOFRAN) injection 4 mg 4 mg intravenous Q12H PRN phenol (CEPASTAT) lozenge 14.5 mg 1 lozenge oral PRN phenol (CHLORASEPTIC) 1.4 % spray 1-5 spray 1-5 spray oral Q2H PRN simethicone chew (MYLICON) tablet 80 mg 80 mg oral TID PRN Physical Exam: Last Vitals: BP 92/54 | Pulse 96 | Temp 36.6 C (97.9 F) | RR 18 | Ht 1.626 m (5' 4.02") | Wt 81 kg (178 lb 9.2 oz) | SpO2 96% | BMI 30.64 kg/(m^2) O2 Delivery Device: None (room air) (06/06/14 1635) 24 Hour Vital Min/Max: Systolic (24hrs), Av mmHg, Min:83 mmHg, Max:132 mmHg Diastolic (24hrs), Av mmHg, Min:37 mmHg, Max:70 mmHg Pulse Av.4 Min: 65 Max: 116 Temp Av.6 C (97.8 F) Min: 36.5 C (97.7 F) Max: 36.6 C (97.9 F) Resp Av.9 Min: 11 Max: 29 SpO2 Av.7 % Min: 96 % Max: 100 % on RA Intake/Output Summary (Last 24 hours) at 06/06/14 1730 Last data filed at 06/06/14 1616 Gross per 24 hour Intake 3805 ml Output 1570 ml Net 2235 ml General Appearance: No apparent distress Heart: Regular rate Lungs: breathing comfortably. Abdomen: soft, non tender, hypoactive bowel sounds Incision: clean and dry, no erythema Extremities: Warm and well perfused, SCDs on bilaterally Assessment and Plan: 53 yo POD#0 from an exploratory laparotomy, total abdominal hysterecto my, bilateral salpingoopherectomy with resection of bilateral adnexal mass, omentectomy, lef t para-aortic lymph node dissection, left pelvic lymph node dissection. Hemodynamically stab le. Neuro: Epidural in place. Appreciate APS involvement. Hx of chronic pain. Continue to monitor. Respiratory: Sating well on RA. -aggressive pulmonary cares -encourage IS use CV: RRR. Hemodynamically stable. -continue to monitor FEN/GI: ADAT Replete lytes PRN Renal/: good urine output. -chery in place overnight -continue to monitor Heme: Hct 43.3 preoperatively. EBL 100 ml. -am CBC Onc: Hx of gallbladder adenocarcinoma. Unable to tell from frozen section etiology of curre ntly malignancy. -await final pathology which will dictate further Treatments. MS: PT, OT ordered. Prophylaxis: SCDs, Lovenox to start 18 hours postoperatively. Will discharge on 14 day cour se of lovenox. MD PONCHO Millard MD documented i n this encounter Plan of Treatment Not on filedocumented as of this encounter Procedures + +--------+ + + + | Procedure Name | Priori | Date/Time | Associated Diagnosis | Comments | | | ty | | | | + +--------+ + + + | PROCEDURE NOTE | Routin | 03/20/2015 | | Results for this | | | e | 2:44 PM | | procedure are in the | | | | PST | | results section. | + +--------+ + + + | CBC (HEMOGRAM) ONLY | Routin | 06/09/2014 | | Results for this | | | e | 5:39 AM | | procedure are in the | | | | PDT | | results section. | + +--------+ + + + | RENAL FUNCTION SET | Urgent | 06/09/2014 | | Results for this | | (NA,K,CL,CO2,BUN,CRE | | 5:39 AM | | procedure are in the | | AT,GLUC,CA,PHOS,ALB | | PDT | | results section. | | ) | | | | | + +--------+ + + + | CBC ONLY | Routin | 06/09/2014 | | Results for this | | | e | 5:39 AM | | procedure are in the | | | | PDT | | results section. | + +--------+ + + + | MAGNESIUM, PLASMA | Urgent | 06/09/2014 | | Results for this | | | | 5:39 AM | | procedure are in the | | | | PDT | | results section. | + +--------+ + + + | CBC (HEMOGRAM) ONLY | Routin | 06/08/2014 | | Results for this | | | e | 5:17 AM | | procedure are in the | | | | PDT | | results section. | + +--------+ + + + | RENAL FUNCTION SET | Urgent | 06/08/2014 | | Results for this | | (NA,K,CL,CO2,BUN,CRE | | 5:17 AM | | procedure are in the | | AT,GLUC,CA,PHOS,ALB | | PDT | | results section. | | ) | | | | | + +--------+ + + + | CBC ONLY | Routin | 06/08/2014 | | Results for this | | | e | 5:17 AM | | procedure are in the | | | | PDT | | results section. | + +--------+ + + + | MAGNESIUM, PLASMA | Urgent | 06/08/2014 | | Results for this | | | | 5:17 AM | | procedure are in the | | | | PDT | | results section. | + +--------+ + + + | OPERATION RECORD | | 06/07/2014 | | Results for this | | | | 8:30 AM | | procedure are in the | | | | PDT | | results section. | + +--------+ + + + | CULTURE, URINE [facility] | Routin | 06/07/2014 | | Results for this | | | e | 5:01 AM | | procedure are in the | | | | PDT | | results section. | + +--------+ + + + | CULTURE, URINE BACTI | Routin | 06/07/2014 | | Results for this | | | e | 5:01 AM | | procedure are in the | | | | PDT | | results section. | + +--------+ + + + | CULTURE, BLOOD BACTI | Routin | 06/07/2014 | | Results for this | | & YEAST [facility] | e | 3:25 AM | | procedure are in the | | | | PDT | | results section. | + +--------+ + + + | CBC (HEMOGRAM) ONLY | Routin | 06/07/2014 | | Results for this | | | e | 3:25 AM | | procedure are in the | | | | PDT | | results section. | + +--------+ + + + | RENAL FUNCTION SET | Urgent | 06/07/2014 | | Results for this | | (NA,K,CL,CO2,BUN,CRE | | 3:25 AM | | procedure are in the | | AT,GLUC,CA,PHOS,ALB | | PDT | | results section. | | ) | | | | | + +--------+ + + + | CBC ONLY | Routin | 06/07/2014 | | Results for this | | | e | 3:25 AM | | procedure are in the | | | | PDT | | results section. | + +--------+ + + + | CULTURE, BLOOD BACTI | Routin | 06/07/2014 | | Results for this | | & YEAST | e | 3:25 AM | | procedure are in the | | | | PDT | | results section. | + +--------+ + + + | MAGNESIUM, PLASMA | Urgent | 06/07/2014 | | Results for this | | | | 3:25 AM | | procedure are in the | | | | PDT | | results section. | + +--------+ + + + | DIAGNOSTIC | Electi | 06/06/2014 | Abdominal or | | | LAPAROSCOPY (BOTTOM WORKER | ve | 7:27 AM | pelvic swelling, | | | ONC) | Surgic | PDT | mass or lump, | | | | al | | unspecified site | | + +--------+ + + + | CARDIOLOGY | | 06/06/2014 | | Results for this | | | | 12:00 AM | | procedure are in the | | | | PDT | | results section. | + +--------+ + + + | NON BOTTOM WORKER CYTOLOGY | Routin | 06/06/2014 | | Results for this | | | e | | | procedure are in the | | | | | | results section. | + +--------+ + + + | SURGICAL PATHOLOGY | Routin | 06/06/2014 | | Results for this | | | e | | | procedure are in the | | | | | | results section. | + +--------+ + + + documented in this encounter Results PROCEDURE NOTE (03/20/2015 2:44 PM PST)CBC (HEMOGRAM) ONLY (06/09/2014 5:39 AM PDT) + + + + + + | Component | Value | Ref Range | Performed | Pathologist | | | | | At | Signature | + + + + + + | WHITE CELL | 6.62 | 4.40 - 11.00 | [facility] | | | COUNT | | K/cu mm | LABORATORY | | | | | | SERVICES, | | | | | | CORE | | + + + + + + | RED CELL | 3.51 (L) | 4.00 - 5.20 | [facility] | | | COUNT | | M/cu mm | LABORATORY | | | | | | SERVICES, | | | | | | CORE | | + + + + + + | HEMOGLOBIN | 10.4 (L) | 12.0 - 16.0 | [facility] | | | | | g/dL | LABORATORY | | | | | | SERVICES, | | | | | | CORE | | + + + + + + | HEMATOCRIT | 31.9 (L) | 36.0 - 46.0 % | [facility] | | | | | | LABORATORY | | | | | | SERVICES, | | | | | | CORE | | + + + + + + | MCV | 90.9 | 80.0 - 96.0 fL | [facility] | | | | | | LABORATORY | | | | | | SERVICES, | | | | | | CORE | | + + + + + + | MCHC | 32.6 | 33.0 - 35.5 | [facility] | | | | | g/dL | LABORATORY | | | | | | SERVICES, | | | | | | CORE | | + + + + + + | RDW SD | 43.0 | 35.1 - 46.3 fL | [facility] | | | | | | LABORATORY | | | | | | SERVICES, | | | | | | CORE | | + + + + + + | PLATELET | 175 | 150 - 400 K/cu | [facility] | | | COUNT | | mm | LABORATORY | | | | | | SERVICES, | | | | | | CORE | | + + + + + + | MPV | 9.5 (L) | 9.7 - 12.3 fL | [facility] | | | | | | LABORATORY | | | | | | SERVICES, | | | | | | CORE | | + + + + + + | NRBC% | 0.0 | 0.0 - 0.3 % | [facility] | | | | | | LABORATORY | | | | | | SERVICES, | | | | | | CORE | | + + + + + + | NRBC# | 0.00 | 0.00 - 0.02 | [facility] | | | | | K/cu mm | LABORATORY | | | | | | SERVICES, | | | | | | CORE | | + + + + + + + + | Specimen | + + | Blood - Blood | + + + + + + + | Performing | Address | City/State/Zipcode | Phone Number | | Organization | | | | + + + + + | [facility] | [address] | [place] [address] | | | SERVICES, CORE | [address] | | | + + + + + MAGNESIUM, PLASMA (06/09/2014 5:39 AM PDT) + +-------+ + + + | Component | Value | Ref Range | Performed | Pathologist | | | | | At | Signature | + +-------+ + + + | MAGNESIUM,P | 2.0 | 1.8 - 2.5 mg/dL | [facility] | | | LASMA | | | LABORATORY | | | [...] | + + + + + | [facility] | [address] | [place] [address] | | | SERVICES, SAM | [address] | | | + + + + + RENAL FUNCTION SET (NA,K,CL,CO2,BUN,CREAT,GLUC,CA,PHOS,ALB ) (06/09/2014 5:39 AM PDT) + +---------+ + + + | Component | Value | Ref Range | Performed | Pathologist | | | | | At | Signature | + +---------+ + + + | GLUCOSE, | 91 | 60 - 99 mg/dL | [facility] | | | PLASMA | | | LABORATORY | | | (LAB) | | | SERVICES, | | | | | | CORE | | + +---------+ + + + | BUN, PLASMA | 6 | 6 - 20 mg/dL | [facility] | | | (LAB) | | | LABORATORY | | | | | | SERVICES, | | | | | | CORE | | + +---------+ + + + | CREATININE | 0.78 | 0.60 - 1.10 | [facility] | | | PLASMA | | mg/dL | LABORATORY | | | (LAB) | | | SERVICES, | | | | | | CORE | | + +---------+ + + + | EGFR | >60 | >60 mL/min | [facility] | | | - | | | LABORATORY | | | [place] | | | SERVICES, | | | [...] +---------+ + + + | POTASSIUM, | 3.8 | 3.4 - 5.0 | [facility] | | | PLASMA | | mmol/L | LABORATORY | | | (LAB) | | | SERVICES, | | | | | | CORE | | + +---------+ + + + | CHLORIDE, | 103 | 97 - 108 mmol/L | [facility] | | | PLASMA | | | LABORATORY | | | (LAB) | | | SERVICES, | | | | | | CORE | | + +---------+ + + + | TOTAL CO2, | 29 | 21 - 32 mmol/L | [facility] | | | PLASMA | | | LABORATORY | | | (LAB) | | | SERVICES, | | | | | | CORE | | + +---------+ + + + | CALCIUM, | 8.2 (L) | 8.6 - 10.2 | [facility] | | | PLASMA | | mg/dL | LABORATORY | | | (LAB) | | | SERVICES, | | | | | | CORE | | + +---------+ + + + | ALBUMIN, | 2.4 (L) | 3.5 - 4.7 g/dL | [facility] | | | PLASMA | | | LABORATORY | | | (LAB) | | | SERVICES, | | | | | | CORE | | + +---------+ + + + | PHOSPHORUS, | 2.2 (L) | 2.4 - 4.7 mg/dL | [facility] | | | PLASMA [...] + + + | ANION GAP | 6 | mmol/L | [facility] | | | | | | LABORATORY | | | | | | SERVICES, | | | | | | CORE | | + +---------+ + + + | ANION | 10 | 4 - 11 mmol/L | [facility] [...] the MDRD equation recommended by the | [facility] | | National Kidney Disease Education Program. [...] | + + + + + | [facility] | [address] | [place] [address] | | | SERVICES, CORE | [address] | | | + + + + + CBC (HEMOGRAM) ONLY (06/08/2014 5:17 AM PDT) + + + + + + | Component | Value | Ref Range | Performed | Pathologist | | | | | At | Signature | + + + + + + | WHITE CELL | 8.16 | 4.40 - 11.00 | [facility] | | | COUNT | | K/cu mm | LABORATORY | | | | | | SERVICES, | | | | | | CORE | | + + + + + + | RED CELL | 3.50 (L) | 4.00 - 5.20 | [facility] | | | COUNT | | M/cu mm | LABORATORY | | | | | | SERVICES, | | | | | | CORE | | + + + + + + | HEMOGLOBIN | 10.3 (L) | 12.0 - 16.0 | [facility] | | | | | g/dL | LABORATORY | | | | | | SERVICES, | | | | | | CORE | | + + + + + + | HEMATOCRIT | 32.2 (L) | 36.0 - 46.0 % | [facility] | | | | | | LABORATORY | | | | | | SERVICES, | | | | | | CORE | | + + + + + + | MCV | 92.0 | 80.0 - 96.0 fL | [facility] | | | | | | LABORATORY | | | | | | SERVICES, | | | | | | CORE | | + + + + + + | MCHC | 32.0 | 33.0 - 35.5 | [facility] | | | | | g/dL | LABORATORY | | | | | | SERVICES, | | | | | | CORE | | + + + + + + | RDW SD | 44.2 | 35.1 - 46.3 fL | [facility] | | | | | | LABORATORY | | | | | | SERVICES, | | | | | | CORE | | + + + + + + | PLATELET | 149 (L) | 150 - 400 K/cu | [facility] | | | COUNT | | mm | LABORATORY | | | | | | SERVICES, | | | | | | CORE | | + + + + + + | MPV | 9.5 (L) | 9.7 - 12.3 fL | [facility] | | | | | | LABORATORY | | | | | | SERVICES, | | | | | | CORE | | + + + + + + | NRBC% | 0.0 | 0.0 - 0.3 % | [facility] | | | | | | LABORATORY | | | | | | SERVICES, | | | | | | CORE | | + + + + + + | NRBC# | 0.00 | 0.00 - 0.02 | [facility] | | | | | K/cu mm | LABORATORY | | | | | | SERVICES, | | | | | | CORE | | + + + + + + + + | Specimen | + + | Blood - Blood | + + + + + + + | Performing | Address | City/State/Zipcode | Phone Number | | Organization | | | | + + + + + | [facility] | [address] | [place] [address] | | | SERVICES, CORE | [address] | | | + + + + + MAGNESIUM, PLASMA (06/08/2014 5:17 AM PDT) + +-------+ + + + | Component | Value | Ref Range | Performed | Pathologist | | | | | At | Signature | + +-------+ + + + | MAGNESIUM,P | 2.1 | 1.8 - 2.5 mg/dL | [facility] | | | LASMA | | | LABORATORY | | | [...] | + + + + + | [facility] | [address] | [place] [address] | | | SERVICES, CORE | [address] | | | + + + + + RENAL FUNCTION SET (NA,K,CL,CO2,BUN,CREAT,GLUC,CA,PHOS,ALB ) (06/08/2014 5:17 AM PDT) + +---------+ + + + | Component | Value | Ref Range | Performed | Pathologist | | | | | At | Signature | + +---------+ + + + | GLUCOSE, | 77 | 60 - 99 mg/dL | [facility] | | | PLASMA | | | LABORATORY | | | (LAB) | | | SERVICES, | | | | | | CORE | | + +---------+ + + + | BUN, PLASMA | 5 (L) | 6 - 20 mg/dL | [facility] | | | (LAB) | | | LABORATORY | | | | | | SERVICES, | | | | | | CORE | | + +---------+ + + + | CREATININE | 0.66 | 0.60 - 1.10 | [facility] | | | PLASMA | | mg/dL | LABORATORY | | | (LAB) | | | SERVICES, | | | | | | CORE | | + +---------+ + + + | EGFR | >60 | >60 mL/min | [facility] | | | - | | | LABORATORY | | | [address] [address] | | | SERVICES, | | | | | | CORE | | + +---------+ + + + | EGFR NON | >60 | >60 mL/min | [facility] | | | -DIMAS | | | LABORATORY | | | [facility] | | | SERVICES, | | | | | | CORE | | + +---------+ + + + | SODIUM, | 137 | 136 - 145 | [facility] | | | PLASMA | | mmol/L | LABORATORY | | | (LAB) | | | SERVICES, | | | | | | CORE | | + +---------+ + + + | POTASSIUM, | 4.0 | 3.4 - 5.0 | [facility] | | | PLASMA | | mmol/L | LABORATORY | | | (LAB) | | | SERVICES, | | | | | | CORE | | + +---------+ + + + | CHLORIDE, | 104 | 97 - 108 mmol/L | [facility] | | | PLASMA | | | LABORATORY | | | (LAB) | | | SERVICES, | | | | | | CORE | | + +---------+ + + + | TOTAL CO2, | 26 | 21 - 32 mmol/L | [facility] | | | PLASMA | | | LABORATORY | | | (LAB) | | | SERVICES, | | | | | | CORE | | + +---------+ + + + | CALCIUM, | 7.6 (L) | 8.6 - 10.2 | [facility] | | | PLASMA | | mg/dL | LABORATORY | | | (LAB) | | | SERVICES, | | | | | | CORE | | + +---------+ + + + | ALBUMIN, | 2.2 (L) | 3.5 - 4.7 g/dL | [facility] | | | PLASMA | | | LABORATORY | | | (LAB) | | | SERVICES, | | | | | | CORE | | + +---------+ + + + | PHOSPHORUS, | 2.2 (L) | 2.4 - 4.7 mg/dL | [facility] | | | PLASMA [...] + + + | ANION GAP | 7 | mmol/L | [facility] | | | | | | LABORATORY | | | | | | SERVICES, | | | | | | CORE | | + +---------+ + + + | ANION | 11 | 4 - 11 mmol/L | [facility] [...] | + + + + + | [facility] | [address] | [place] [address] | | | SERVICES, CORE | [address] | | | + + + + + OPERATION RECORD (06/07/2014 8:30 AM PDT) + + | Transcriptions | + + | Miguel Seymour MD - 06/06/2014 12:48 PM PDT Date of Service: 06/06/2014 | | Attending Surgeon: Miguel Seymour MD Client Support Analyst(s): | | Poncho Arriola MD. Anesthesia: General endotracheal | | anesthesia and epidural anesthesia.Complications: None.Procedures Performed: | | Exploratory laparotomy, total abdominal hysterectomy, bilateral salpingo-oophorectomy, | | pelvic and periaortic lymphadenectomy, omentectomy, surgical staging.Description Of | | Findings: There are dense adhesions between the omentum, the anterior abdominal wall, | | the liver and the diaphragm. There are similar dense adhesions between the rectosigmoid | | and the left flank. Both ovaries are encased in adhesions, most of which are filmy and | | thin in nature. The left ovary is replaced by 10 cm partially cystic mass. There is a | | 4-5 cm cystic mass of the right ovary with 5-7 mm sized nodular excrescences on the | | surface. The uterus is grossly normal. The entire small and large bowel are normal, as | | well as the appendix. There is a small 3 mm nodule on the rectosigmoid mesentery. The | | intestinal mesentery is otherwise normal over its entire course. There are no | | suspicious peritoneal tumor implants in the pelvis or the abdomen. There are no | | enlarged pelvic or periaortic lymph nodes. Frozen section of the left ovarian mass | | shows a poorly differentiated epithelial tumor. No further characterization is | | possible. There was no gross evidence of disease palpable or visible at the completion | | of the procedure.Description Of Procedure: After general and epidural anesthesia were | | obtained, the patient was placed in a modified dorsal lithotomy position. Proper | | padding was applied to prevent pressure injuries. The patient was prepped and draped in | | the usual sterile fashion. A team pause was held with confirmation of the patient's | | identity and the procedure to be performed. Blood was available and antibiotics had | | been administered. All team members were in agreement. A Chery catheter was placed | | with the usual sterile technique and the patient was prepped and draped for the | | procedure. A midline incision was made and extended above the umbilicus towards the | | xiphoid. The abdomen was entered without difficulty. The omentum was then taken down | | from the anterior abdominal wall with the cautery and LigaSure. A small amount of | | peritoneal fluid was removed together with washings for cytology. A self-retaining | | Bookwalter retractor was then positioned in the wound. The abdomen was carefully | | examined with findings as described. The dense adhesions between the rectosigmoid and | | the pelvic sidewall were taken down by sharp dissection and with electrocautery. The | | retroperitoneal spaces were entered. The uterus was then elevated. The round ligament | | on the left side was identified and divided. The left ureter was properly identified, | | and the left ovarian vessels were subsequently clamped, divided, and doubly ligated. | | The left ovarian mass was now dissected off the pelvic sidewall and the broad ligaments | | without rupture. The fallopian tube, mesosalpinx and ovarian ligament were then clamped | | and divided and the specimen was sent for frozen section. On the right side, the | | peritoneum of the sidewall was divided and the right ureter was identified. The right | | ovarian vessels were then clamped, divided, and doubly ligated. The round ligament was | | divided. The ovary was dissected of adhesions to the broad ligament, mobilized | | medially. The fallopian tube on that side with the mesosalpinx and the ovarian ligament | | were then also clamped and divided. The ovary was sent for pathology. With the uterus | | under traction, the peritoneum of the anterior cul-de-sac was now divided. The patient | | had several sections in the past, and the bladder was adherent high up on the | | uterus. It was carefully taken down by sharp dissection without any injury to bladder | | or ureters. The uterine vessels were skeletonized. They were subsequently clamped, | | divided, and ligated. The cardinal ligaments and uterosacral ligaments were clamped in | | successive steps, divided and ligated. Clamps were placed on the vagina with the | | bladder and ureters reflected out of the way and the specimen was resected. The vagina | | was closed with 0 Vicryl sutures, which resulted in excellent hemostasis. A small | | nodule identified on the mesentery of the rectosigmoid was removed. Peritoneal biopsies | | were obtained from the cul-de-sac and the pelvic sidewalls. Attention was directed to | | her upper abdomen. The incision was extended to gain proper exposure. The omentum was | | entirely taken down from the anterior abdominal wall and from the edge of the liver | | towards the previous surgery site for the patient's gallbladder cancer. The diaphragm | | on the left side was entirely normal. The portion of the diaphragm on the right side | | that could be evaluated was normal as well. There was no evidence of tumor in this | | area. The omentum was removed from the transverse colon, the mesentery of the | | transverse colon, and from the greater curvature of the stomach. The LigaSure device | | was used without any injury to surrounding organs, and without bleeding. The left | | periaortic lymph nodes were removed next. The ureter was reflected over the aorta and | | the scant lymphatic material to the left side of the aorta was removed. Electrocautery | | was used. On the left side, a complete pelvic lymphadenectomy was performed. The | | genitofemoral nerve was left intact as well as the obturator nerve, which was well | | visualized. The lymph nodes from the external and internal iliac lymph nodes chain, | | from the obturator fossa, and from the common iliac vessels were removed. There were no | | bleeding problems and there were no neural injuries. The ureter was properly reflected | | out of the way at all times. Copious irrigation was performed. There was no evidence | | of bleeding and there was no visible tumor anywhere. The bowel was examined over its | | entire length. All sponges and the self-retaining retractor, as well as all | | instruments, were then removed. The abdominal incision was closed with #1 looped Maxon | | in a mass type of closure. The subcutaneous tissues were irrigated and the skin was | | closed with rosie. Sponge, instrument, and needle counts were correct x2.I was | | present for the entire procedure as described in the note for this encounter.Miguel | | JACOB Seymour/ADAMD: 06/06/2014 11:52:24DT: 06/06/2014 12:48:01Job #: | | [id number] DEPARTMENT: [id number] [place]lace of Service: - | | IPDate of Service: 06/07/2014 : [id number] | | Modifier: NoneSuggested CPT: NoneSuggested Procedure CPT: To CoderSuggested Diagnosis: | | Ovarian ca | + + CULTURE, URINE [facility] (06/07/2014 5:01 AM PDT) + + + + + + | Component | Value | Ref Range | Performed | Pathologist | | | | | At | Signature | + + + + + + | URINE | No growth (<1000 cfu/mL) | | [facility] | | | CULTURE | after 24 hours | | LABORATORY | | | [facility] | | | SERVICES, | | | | | | CORE | | + + + + + + + + | Specimen | + + | Urine - Urine | + + + + + + + | Performing | Address | City/State/Zipcode | Phone Number | | Organization | | | | + + + + + | [facility] | [address] | [place] [address] | | | SERVICES, SAM | [address] | | | + + + + + CULTURE, BLOOD BACTI & YEAST GWEN (06/07/2014 3:25 AM PDT) + + + + + + | Component | Value | Ref Range | Performed | Pathologist | | | | | At | Signature | + + + + + + | CULTURE | Final Report:No Bacteria | | [facility] | | | RESULT | or Yeast isolated at 5 | | LABORATORY | | | | days. | | SERVICES, | | | | | | CORE | | + + + + + + + + | Specimen | + + | Blood - Antecubital | | - right | + + + + + + + | Performing | Address | City/State/Zipcode | Phone Number | | Organization | | | | + + + + + | [facility] | [address] | [place] [address] | | | SERVICES, CORE | [address] | | | + + + + + CBC (HEMOGRAM) ONLY (06/07/2014 3:25 AM PDT) + + + + + + | Component | Value | Ref Range | Performed | Pathologist | | | | | At | Signature | + + + + + + | WHITE CELL | 7.86 | 4.40 - 11.00 | [facility] | | | COUNT | | K/cu mm | LABORATORY | | | | | | SERVICES, | | | | | | CORE | | + + + + + + | RED CELL | 3.81 (L) | 4.00 - 5.20 | [facility] | | | COUNT | | M/cu mm | LABORATORY | | | | | | SERVICES, | | | | | | CORE | | + + + + + + | HEMOGLOBIN | 11.0 (L) | 12.0 - 16.0 | [facility] | | | | | g/dL | LABORATORY | | | | | | SERVICES, | | | | | | CORE | | + + + + + + | HEMATOCRIT | 35.1 (L) | 36.0 - 46.0 % | [facility] | | | | | | LABORATORY | | | | | | SERVICES, | | | | | | CORE | | + + + + + + | MCV | 92.1 | 80.0 - 96.0 fL | [facility] | | | | | | LABORATORY | | | | | | SERVICES, | | | | | | CORE | | + + + + + + | MCHC | 31.3 | 33.0 - 35.5 | [facility] | | | | | g/dL | LABORATORY | | | | | | SERVICES, | | | | | | CORE | | + + + + + + | RDW SD | 44.7 | 35.1 - 46.3 fL | [facility] | | | | | | LABORATORY | | | | | | SERVICES, | | | | | | CORE | | + + + + + + | PLATELET | 170 | 150 - 400 K/cu | [facility] | | | COUNT | | mm | LABORATORY | | | | | | SERVICES, | | | | | | CORE | | + + + + + + | MPV | 10.0 | 9.7 - 12.3 fL | [facility] | | | | | | LABORATORY | | | | | | SERVICES, | | | | | | CORE | | + + + + + + | NRBC% | 0.0 | 0.0 - 0.3 % | [facility] | | | | | | LABORATORY | | | | | | SERVICES, | | | | | | CORE | | + + + + + + | NRBC# | 0.00 | 0.00 - 0.02 | [facility] | | | | | K/cu mm | LABORATORY | | | | | | SERVICES, | | | | | | CORE | | + + + + + + + + | Specimen | + + | Blood - Blood | + + + + + + + | Performing | Address | City/State/Zipcode | Phone Number | | Organization | | | | + + + + + | [facility] | [address] | [place] [address] | | | SERVICES, CORE | [address] | | | + + + + + MAGNESIUM, PLASMA (06/07/2014 3:25 AM PDT) + +---------+ + + + | Component | Value | Ref Range | Performed | Pathologist | | | | | At | Signature | + +---------+ + + + | MAGNESIUM,P | 1.6 (L) | 1.8 - 2.5 mg/dL | [facility] | | | LASMA | | | LABORATORY | | | [...] | + + + + + | [facility] | [address] | [place] [address] | | | SERVICES, CORE | [address] | | | + + + + + RENAL FUNCTION SET (NA,K,CL,CO2,BUN,CREAT,GLUC,CA,PHOS,ALB ) (06/07/2014 3:25 AM PDT) + +---------+ + + + | Component | Value | Ref Range | Performed | Pathologist | | | | | At | Signature | + +---------+ + + + | GLUCOSE, | 95 | 60 - 99 mg/dL | [facility] | | | PLASMA | | | LABORATORY | | | (LAB) | | | SERVICES, | | | | | | CORE | | + +---------+ + + + | BUN, PLASMA | 8 | 6 - 20 mg/dL | [facility] | | | (LAB) | | | LABORATORY | | | | | | SERVICES, | | | | | | CORE | | + +---------+ + + + | CREATININE | 0.93 | 0.60 - 1.10 | [facility] | | | PLASMA | | mg/dL | LABORATORY | | | (LAB) | | | SERVICES, | | | | | | CORE | | + +---------+ + + + | EGFR | >60 | >60 mL/min | [facility] | | | - | | | LABORATORY | | | [address] | | | SERVICES, | | | | | | CORE | | + +---------+ + + + | EGFR NON | >60 | >60 mL/min | [facility] | | | -DIMAS | | | LABORATORY | | | [facility] | | | SERVICES, | | | | | | CORE | | + +---------+ + + + | SODIUM, | 134 (L) | 136 - 145 | [facility] | | | PLASMA | | mmol/L | LABORATORY | | | (LAB) | | | SERVICES, | | | | | | CORE | | + +---------+ + + + | POTASSIUM, | 3.6 | 3.4 - 5.0 | [facility] | | | PLASMA | | mmol/L | LABORATORY | | | (LAB) | | | SERVICES, | | | | | | CORE | | + +---------+ + + + | CHLORIDE, | 101 | 97 - 108 mmol/L | [facility] | | | PLASMA | | | LABORATORY | | | (LAB) | | | SERVICES, | | | | | | CORE | | + +---------+ + + + | TOTAL CO2, | 28 | 21 - 32 mmol/L | [facility] | | | PLASMA | | | LABORATORY | | | (LAB) | | | SERVICES, | | | | | | CORE | | + +---------+ + + + | CALCIUM, | 7.5 (L) | 8.6 - 10.2 | [facility] | | | PLASMA | | mg/dL | LABORATORY | | | (LAB) | | | SERVICES, | | | | | | CORE | | + +---------+ + + + | ALBUMIN, | 2.2 (L) | 3.5 - 4.7 g/dL | [facility] | | | PLASMA | | | LABORATORY | | | (LAB) | | | SERVICES, | | | | | | CORE | | + +---------+ + + + | PHOSPHORUS, | 2.2 (L) | 2.4 - 4.7 mg/dL | [facility] | | | PLASMA [...] + + + | ANION GAP | 5 | mmol/L | [facility] | | | | | | LABORATORY | | | | | | SERVICES, | | | | | | CORE | | + +---------+ + + + | ANION | 9 | 4 - 11 mmol/L | [facility] [...] | + + + + + | [facility] | [address] | [place] [address] | | | SERVICES, CORE | [address] | | | + + + + + NON BOTTOM WORKER CYTOLOGY (06/06/2014) + + + + + + | Component | Value | Ref Range | Performed | Pathologist | | | | | At | Signature | + + + + + + | NON-BOTTOM WORKER | SOURCE OF SPECIMEN:A | | [facility] | | | CYTOLOGY | Pelvic WashingsGROSS | | DEPARTMENT | | | | DESCRIPTION: 400 ml | | OF | | | | bloody fluid: 1 | | PATHOLOGY | | | | Sure[facility] slide and a | | | | | | cell | | | | | | blockpreparedCLINICAL | | | | | | HISTORY: Pelvic mass | | | | | | Diagnosis:Negative | | | | | | for malignancy.Please | | | | | | see comment. | | | | | | Adequacy:Satisfactory | | | | | | for evaluation. | | | | | | Comments:Reactive | | | | | | mesothelial cells and | | | | | | chronic inflammation | | | | | | present. My | | | | | | [...] Diagnostician: | | | | | | Brandon San | | | | | | CT(ASCP)Oncology Physician | | | | | | Electronically Signed | | | | | | 06/07/2014 | | | | | | 9:43AMRendering | | | | | | Diagnostician: Michael | | | | | | Sarah | | | | | | MaycolPathologistElectroni | | | | | | analia Signed 06/07/2014 | | | | | | 5:04PM | | | | + + + + + + + + | Specimen | + + | | + + + + + + + | Performing | Address | City/State/Zipcode | Phone Number | | Organization | | | | + + + + + | [facility] | [address] | [place] [address] | | | PATHOLOGY | [address] | | | + + + + + SURGICAL PATHOLOGY (06/06/2014) + + + + + + | Component | Value | Ref Range | Performed | Pathologist | | | | | At | Signature | + + + + + + | SURGICAL | SOURCE OF SPECIMEN:A | | [facility] | | | PATHOLOGY | Pelvic washingsSOURCE OF | | DEPARTMENT | | | | SPECIMEN:B Left ovary | | OF | | | | and tube FSSOURCE OF | | PATHOLOGY | | | | SPECIMEN:C Mesentery | | | | | | sigmoid colonSOURCE OF | | | | | | SPECIMEN:D Right ovary | | | | | | and tube, uterus and | | | | | | cervixSOURCE OF | | | | | | SPECIMEN:E OmentumSOURCE | | | | | | OF SPECIMEN:F Left | | | | | | para-aortic lymph | | | | | | nodesSOURCE OF | | | | | | SPECIMEN:G Left pelvic | | | | | | lymph nodesSOURCE OF | | | | | | SPECIMEN:H Left pelvic | | | | | | sidewallSOURCE OF | | | | | | SPECIMEN:I Cul de sac | | | | | | peritoneumSOURCE OF | | | | | | SPECIMEN:J Right pelvic | | | | | | sidewall Final | | | | | | Pathologic Diagnosis:A: | | | | | | Pelvic washings, sent | | | | | | to Cytology: - | | | | | | Please see | | | | | | corresponding [id number] | | | | | | B: Left ovary | | | | | | and fallopian tube, | | | | | | salpingo-oophorectomy: | | | | | | - 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 9.5 cm- | | | | | | Tumor extensively | | | | | | involves ovarian stroma | | | | | | with focal involvement | | | | | | offallopian tube stroma- | | | | | | Multifocal | | | | | | angiolymphatic | | | | | | involvement present- | | | | | | Immunohistochemical | | | | | | staining: | | | | | | - Positive for: CK-7, | | | | | | synaptophysin, | | | | | | chromogranin and CDX-2 | | | | | | - Ki-67 | | | | | | proliferation index: | | | | | | approx. 50% | | | | | | - Negative for: | | | | | | CK-20, PAX-8 - | | | | | | Please see comment | | | | | | C: Mesentery sigmoid | | | | | | colon, biopsy: - | | | | | | Metastatic | | | | | | poorly-differentiated | | | | | | carcinoma with | | | | | | neuroendocrine | | | | | | featurespresent as | | | | | | approx. 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 5 cm- Tumor | | | | | | extensively involves | | | | | | ovarian and fallopian | | | | | | tube stroma- | | | | | | Multifocal | | | | | | angiolymphatic | | | | | | involvement present- | | | | | | Exo/endocervix with | | | | | | squamous metaplasia- | | | | | | Inactive endometrium- | | | | | | Myometrium with no | | | | | | diagnostic abnormality | | | | | | E: Omentum, | | | | | | omentectomy: | | | | | | - Fibroadipose | | | | | | connective tissue with | | | | | | no diagnostic | | | | | | abnormality - | | | | | | Negative for malignancy | | | | | | F: Left | | | | | | periaortic lymph nodes, | | | | | | dissection: | | | | | | - Four lymph nodes with | | | | | | no diagnostic | | | | | | abnormality (0/4) | | | | | | - Negative for | | | | | | malignancy G: | | | | | | Left pelvic lymph | | | | | | nodes, dissection: | | | | | | - Five lymph | | | | | | nodes with no diagnostic | | | | | | abnormality (0/5) | | | | | | - Negative for | | | | | | malignancy H: | | | | | | Left pelvic side wall, | | | | | | excision: | | | | | | - Peritoneal | | | | | | fibroadipose connective | | | | | | tissue with no | | | | | | diagnosticabnormality | | | | | | - Negative for | | | | | | malignancy I: | | | | | | Cul de sac peritoneum, | | | | | | excision: - | | | | | | Metastatic | | | | | | poorly-differentiated | | | | | | carcinoma with | | | | | | neuroendocrine | | | | | | featuresfocally present | | | | | | at 0.1 cm aggregate | | | | | | within peritoneal | | | | | | fibroadiposeconnective | | | | | | tissue- | | | | | | Immunohistochemical | | | | | | staining positive for | | | | | | synaptophysin and | | | | | | chromogranin J: | | | | | | Right pelvic side | | | | | | wall, excision: | | | | | | - Peritoneal | | | | | | fibroadipose connective | | | | | | tissue with no | | | | | | diagnosticabnormality | | | | | | - | | | | | | Immunohistochemical | | | | | | staining negative for | | | | | | synaptophysin | | | | | | andchromogranin - | | | | | | Negative for malignancy | | | | | | Comment: The | | | | | | poorly-differentiated | | | | | | carcinoma with | | | | | | neuroendocrine | | | | | | featuresshows similar | | | | | | histologic features to | | | | | | the previously excised | | | | | | lymph nodesfrom the |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 bed | | | | | | ([id number], slides [id number]). | | | | | | | | | | | | Additionally,immunohis | | | | | | tochemical staining on | | | | | | the left ovarian tumor | | | | | | shows the cells howie | | | | | | positive for CDX-2, | | | | | | consistent with | | | | | | gastrointestinal origin. | | | | | | Case seen | | | | | | by:Jose Covarrubias, | | | | | | M.D./Surgical Pathology | | | | | | ResidentDashaq Smith, | | | | | | M.D./PathologistT:06/10/ | | | | | | 15/rdl (Analyte | | | | | | specific reagents are | | | | | | used in many laboratory | | | | | | tests necessary | | | | | | forstanda medical | | | | | | care. This test was | | | | | | developed and its | | | | | | performancecharacteristi | | | | | | cs determined by [facility] | | | | | | laboratories. It has | | | | | | not been clearedor | | | | | | approved by the [place] Food | | | | | | and Drug Administration | | | | | | (FDA). FDA does | | | | | | notrequire this test to | | | | | | go through premarket FDA | | | | | | review. This test is | | | | | | usedfor clinical | | | | | | purposes. It should | | | | | | not be regarded as | | | | | | investigational or | | | | | | forresearch. This | | | | | | laboratory is certified | | | | | | under the Clinical | | | | | | LaboratoryImprovement | | | | | | Amendments (CLIA) as | | | | | | qualified to perform | | | | | | high complexityclinical | | | | | | laboratory testing.") | | | | | | | | | | | | Intraoperative Consult | | | | | | (Frozen Section) | | | | | | Diagnosis:Left ovary and | | | | | | fallopian tube | | | | | | (specimen B): - | | | | | | Positive for malignancy, | | | | | | defer to permanent | | | | | | Intraoperative | | | | | | Consult Diagnosis | | | | | | confirmed by: Kirill | | | | | | Marine Larry M.D., | | | | | | Ph.D./Pathologist | | | | | | Clinical History:53 yo | | | | | | female, 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 Gross | | | | | | Description:Received are | | | | | | 10 specimens fresh in | | | | | | containers labeled with | | | | | | the patient | | | | | | name(initials MM) and: | | | | | | A: Pelvic | | | | | | washings | | | | | | | | | | | | sent to Cytology | | | | | | B: Left ovary and | | | | | | tube: Specimen: | | | | | | Left tube and | | | | | | ovarySize: | | | | | | 168 grams, 9.5 x 6.5 x | | | | | | 5.5 cmExternal surface: | | | | | | Remarkable for 3 | | | | | | excrescences: First | | | | | | measures 6 x 4.4 x0.7 | | | | | | cm, second measures 3.8 | | | | | | x 2.5 x 1.8 cm, and | | | | | | third measures 1.8 x 1.3 | | | | | | x0.8 cm | | | | | | Note: The specimen is | | | | | | sampled for frozen | | | | | | section diagnosis. | | | | | | Theexternal surface is | | | | | | inked over after the | | | | | | fact.Fallopian tube: | | | | | | 5 (L) x 0.7 (D) cm | | | | | | with fimbriaeCut | | | | | | surface: Reveals a | | | | | | multiloculate, | | | | | | serous-filled cysts | | | | | | ranging in sizefrom 0.2 | | | | | | cm to 2.5 cm. The | | | | | | inner cyst wall lining | | | | | | is del rio-pink, smooth,with | | | | | | multifocal areas of | | | | | | del rio-brown, friable | | | | | | excrescences.Additional | | | | | | findings: No | | | | | | ovarian remnant is | | | | | | identifiedSubmitted: | | | | | | | | | | | | Tailor Apprentice | | | | | | sections C: | | | | | | Mesentery sigmoid | | | | | | colon: Received is a | | | | | | del rio-pink, irregular, | | | | | | softtissue fragment | | | | | | measuring 0.4 x 0.4 x | | | | | | 0.3 cm. The entire | | | | | | specimen issubmitted. | | | | | | D: Right ovary and | | | | | | tube, uterus, and | | | | | | cervix: Received is a | | | | | | 50.7-gramhysterectomy | | | | | | specimen measuring 7.5 | | | | | | cm from fundus to | | | | | | cervix, 3.8 cm fromcornu | | | | | | to cornu, and 3.2 cm | | | | | | from anterior to | | | | | | posterior. The | | | | | | specimen isoriented by | | | | | | the peritoneal | | | | | | reflection. The serosa | | | | | | is del rio-pink, smooth, | | | | | | andunremarkable. The | | | | | | ectocervix measures 2.7 | | | | | | (ML) x 2.5 (AP) cm with | | | | | | a 0.4-cmin length | | | | | | slit-like os. The | | | | | | uterus is bisected to | | | | | | reveal a | | | | | | flattened,del rio-white | | | | | | endocervical canal. | | | | | | The endometrial cavity | | | | | | is atrophic | | | | | | measuring2.7 (SI) x 0.3 | | | | | | (ML) cm and measures | | | | | | less than 0.1-cm thick. | | | | | | The rightparametrial | | | | | | margin is inked black | | | | | | and the left parametrial | | | | | | margin is inkedblue. | | | | | | The uterus is serially | | | | | | sectioned to reveal the | | | | | | myometrium measuringup | | | | | | to 1.7-cm thick and is | | | | | | del rio-pink, finely | | | | | | trabeculated, and | | | | | | unremarkable. | | | | | | Also in the container | | | | | | is the right adnexa | | | | | | weighing all together | | | | | | 23.8 gramsand measuring | | | | | | 7 x 3.5 x 2.5 cm. The | | | | | | right fallopian tube | | | | | | measures 2.7 cmin length | | | | | | x 0.6 cm in diameter. | | | | | | It is fimbriated and | | | | | | shows evidence | | | | | | ofprevious tubal | | | | | | ligation. The right | | | | | | ovary measures 4 x 3 x | | | | | | 2.8 cm and theexternal | | | | | | surface of the ovary is | | | | | | remarkable for 8 | | | | | | del rio-brown nodules | | | | | | rangingin size from 0.5 | | | | | | cm to 2.2 cm in greatest | | | | | | dimension. The | | | | | | external surfaceof the | | | | | | ovary is inked blue and | | | | | | the ovary is serially | | | | | | sectioned to reveal | | | | | | atan-pink to del rio-red, | | | | | | hemorrhagic, and spongy | | | | | | cut surface with | | | | | | multiplecysts ranging in | | | | | | size from 0.1 cm to 0.3 | | | | | | cm in greatest | | | | | | dimension filledwith | | | | | | hemorrhagic fluid. No | | | | | | normal ovarian remnant | | | | | | is | | | | | | identified.Representativ | | | | | | e sections are | | | | | | submitted. The | | | | | | specimen is sampled for | | | | | | the BioLibrary. E: | | | | | | Omentum: Received | | | | | | is a yellow-del rio, | | | | | | lobulated, fibrofatty | | | | | | sheet ofomentum | | | | | | measuring 29 x 18 x 5 | | | | | | cm. The specimen is | | | | | | serially sectioned | | | | | | toreveal a yellow-del rio, | | | | | | lobulated, unremarkable | | | | | | cut surface. No | | | | | | discretemasses or | | | | | | nodules are identified. | | | | | | Tailor Apprentice | | | | | | sections are submitted. | | | | | | F: Left | | | | | | paraaortic lymph nodes: | | | | | | Received are multiple | | | | | | yellow-del rio,lobulated, | | | | | | fibrofatty tissues | | | | | | measuring 2.5 x 2 x 0.9 | | | | | | cm. The specimen | | | | | | ispalpated for lymph | | | | | | nodes and 2 del rio-pink, | | | | | | ovoid lymph node | | | | | | candidates aredissected | | | | | | out measuring 0.9 cm and | | | | | | 0.8 cm in greatest | | | | | | dimension. Theentire | | | | | | specimen is submitted. | | | | | | G: Left pelvic | | | | | | lymph nodes: Received | | | | | | is a yellow-del rio, | | | | | | lobulated,fibrofatty | | | | | | tissue measuring 5.5 x 5 | | | | | | x 2 cm. The specimen | | | | | | is palpated forlymph | | | | | | nodes and 5 del rio-red, | | | | | | ovoid lymph node | | | | | | candidates are dissected | | | | | | outranging in size from | | | | | | 0.5 cm to 3.2 cm in | | | | | | greatest dimension. | | | | | | The lymphnode | | | | | | candidates are entirely | | | | | | submitted. H: | | | | | | Left pelvic sidewall: | | | | | | Received is a | | | | | | del rio-pink, flat, | | | | | | roughlyrectangular, | | | | | | membranous tissue | | | | | | measuring 2.3 x 1 x 0.1 | | | | | | cm. The specimen | | | | | | istrisected and entirely | | | | | | submitted. I: | | | | | | Cul-de-sac peritoneum: | | | | | | Received is a | | | | | | del rio-pink, irregular, | | | | | | flat, softtissue | | | | | | fragment measuring 1.3 x | | | | | | 0.6 x 0.1 cm. The | | | | | | specimen is bisected | | | | | | andentirely submitted. | | | | | | J: Right pelvic | | | | | | sidewall: Received is | | | | | | a del rio-pink, irregular, | | | | | | soft tissuefragment | | | | | | measuring 1.7 x 0.3 x | | | | | | 0.1 cm. The entire | | | | | | specimen is submitted. | | | | | | Cassette Index:A: | | | | | | Pelvic washings | | | | | | | | | | | | sent to CytologyB: | | | | | | Left ovary and | | | | | | tube:B1-2, frozen | | | | | | section residueB3-6, | | | | | | union representative sections | | | | | | of #1 external | | | | | | excrescenceB7-8, #2 | | | | | | external | | | | | | excrescenceB9-10, entire | | | | | | #3 external | | | | | | ionjehjsgalY10, | | | | | | union representative sections | | | | | | of del rio-brown | | | | | | excrescences from inner | | | | | | cyst roveobukxpI18-11, | | | | | | additional sections of | | | | | | oicipG48, union representative | | | | | | sections of fallopian | | | | | | tubeC: Mesentery | | | | | | sigmoid colon:C1D: | | | | | | Right ovary and tube, | | | | | | uterus, and cervix:D1, | | | | | | anterior cervixD2, | | | | | | posterior cervixD3, | | | | | | anterior full thickness | | | | | | endomyometriumD4, | | | | | | posterior full thickness | | | | | | endomyometriumD5, | | | | | | union representative sections | | | | | | of right ovaryD6-9, | | | | | | union representative sections | | | | | | of external ovarian | | | | | | xhogjwR06-49, | | | | | | union representative sections | | | | | | of ovaryE: | | | | | | Omentum:E1-3F: Left | | | | | | paraaortic lymph | | | | | | nodes:F1, two lymph node | | | | | | candidatesF2, remaining | | | | | | fibroadipose tissueG: | | | | | | Left pelvic lymph | | | | | | nodes:G1-2, one lymph | | | | | | node candidate serially | | | | | | sectionedG3, three lymph | | | | | | node candidatesG4, one | | | | | | lymph node candidate | | | | | | bisectedH: Left pelvic | | | | | | sidewall:H1I: | | | | | | Cul-de-sac | | | | | | peritoneum:I1J: Right | | | | | | pelvic sidewall:J1AW:tp | | | | | | My electronic | | | | | | signature indicates that | | | | | | I have personally | | | | | | reviewed alldiagnostic | | | | | | slides, the gross and/or | | | | | | microscopic portion of | | | | | | thisreport and | | | | | | formulated the final | | | | | | diagnosis. | | | | | | Rendering Diagnostician: | | | | | | Michael Smith | | | | | | MaycolPathologistElectroni | | | | | | analia Signed 06/11/2014 | | | | | | 2:32PM | | | | + + + + + + + + | Specimen | + + | | + + + + + + + | Performing | Address | City[facility]State[facility] | Phone Number | | Organization | | | | + + + + + | [facility] | [address] | [place] [address] | | | PATHOLOGY | [address] | | | + + + + + CARDIOLOGY (06/06/2014 12:00 AM PDT) + + + | Narrative | Performed At | + + + | | | | | | + + + + + | Procedure Note | + + | Yamila Benitez - 06/12/2014 2:48 PM PDT | + + documented in this encounter Visit Diagnoses + + | Diagnosis | + + | Abdominal or pelvic swelling, mass or lump, unspecified site | + + documented in this encounter
--- OUTSIDE RECORDS SUMMARY | ~2019-06-13 | XMS | Encounter Summary ---
Demographics + + + | Address | [address] | | | [place] [address] | + + + | Home Phone | | + + + | Preferred Language | Unknown | + + + | Marital Status | Single | + + + | Voodoo Affiliation | NON | + + + | Race | White | + + + | Ethnic Group | Not or | + + + Author + + + | Author | [facility] | + + + | Organization | [facility] | + + + | Address [...] Team Providers + +------+ + | Care Repairer Engine Production Name | Role | Phone | + +------+ + PCP | Unavailable | + +------+ + Reason for Visit + + + | Reason | Comments | + + + | New patient | | | consultation | | + + + Consultation (Routine) +--------+--------+ + + + + | Status | Reason | Specialty | Diagnoses / | Referred By | Referred To | | | | | Procedures | Contact | Contact | +--------+--------+ + + + + | Closed | | Otolaryngolog | Diagnoses | Sid, | Virgilio Buck, | | | | y | Nasal | Aamir Keller | [address] | | | | | septal | [address] | | | | | defect | [address] | [place] | | | | | Procedures | [place], [place] | [place], [place] | | | | | CONSULT TO | [address] | [address] | | | | | ENT / FACIAL | Phone: | Phone: | | | | | PLASTIC | [phone] | [phone] | | | | | SURGERY | Fax: | Fax: | | | | | | [phone] | [phone] | +--------+--------+ + + + + Encounter Details +--------+---------+ + + + | Date | Type | Department | Care Team | Description | +--------+---------+ + + + | 06/03/ | Office | Otolaryngology | Virgilio Buck MD | Perforation of Nasal | | 2008 | Visit | Facial Plastics & | [address] | Septum; Nasal | | | | Reconstructive | [place], | Septal Defect | | | | Services at [facility] | [place] [address] | | | | | [address] | [phone] | | | | | Mailcode: KAREEN | | | | | | [facility] | | | | | | and Healing, | | | | | | Building [address], [address]th | | | | | | Floor [place], [place] | | | | | | [address] | | | | | | [phone] | | | +--------+---------+ + + + [...] encounter Progress Notes Virgilio Buck MD - 06/03/2008 1:49 PM PDTClinic: Facial Plastic and Reconstructive Surgery [...] today. Photos obtained. She met with my outsole scheduler maximo hirsch. Followup arranged for preop. Time spent with patient /family, reviewing studies/ recor ds 20 minutes, with >50 % of time spent in consultation and coordination of care. Virgilio Buck MD FACS Professor Facial Plastic and Reconstructive Surgery Dept. of Otolaryngology/Head and Neck Surgery [facility] tel fax email [email or web address] documented in this encounte r Plan [...]
--- OUTSIDE RECORDS SUMMARY | ~2019-06-13 | XMS | Encounter Summary ---
Demographics + + + | Address | [address] | | | [place] [address] | + + + | Home Phone | | + + + | Preferred Language | Unknown | + + + | Marital Status | | + + + | Restorationist Affiliation | Unknown | + + + | Race | Unknown | + + + | Ethnic Group | Unknown | + + + Author + + + | Author | [facility] | | | and [place] | + + + | Organization | [facility] | | | and [place] | + + + | Address | Unknown | + + + | Phone | Unavailable | + + + Support + + + + + | Name | Relationship | Address | Phone | + + + + + | Poncho Oquendo | ECON | [address] | | | | | [place] | | | | | [address] | | + + + + + | Marta Upton | ECON | [place] | | | | | [address] | | + + + + + Care Team Providers + +------+ + | Care Automotive Design Drafter Name | Role | Phone | + +------+ + | Valeriy Carmona DO | PCP | | + +------+ + Reason for Visit + + + | Reason | Comments | + + + | Medication Refill | | + + + Encounter Details +--------+--------+ + + + | Date | Type | Department | Care Team | Description | +--------+--------+ + + + | 05/30/ | Refill | [facility] | Reinaldo, | Medication Refill | | 2019 | | MED CTR MEDICAL | Epifanio Soler MD [address] | | | | | [facility] [facility] | [address] 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
--- OUTSIDE RECORDS SUMMARY | ~2019-06-13 | XMS | Encounter Summary ---
Demographics + + + | Address | [address] | | | [place] [address] | + + + | Home Phone | | + + + | Preferred Language | Unknown | + + + | Marital Status | Single | + + + | Bahai Affiliation | NON | + + + [...] Team Providers + +------+ + | Care Parts Counter Sales Person Name | Role | Phone | + +------+ + | Tomasa Wagner | PCP | | + +------+ + Encounter Details +--------+ + + + + | Date | Type | Department | Care Team | Description | +--------+ + + + + | 06/01/ | Abstract | Digestive Health | Tai Stanton, | | | 2012 | | Center at [facility] [address] | [address] | | | | | [address] [facility] | [facility] | | | | | for Health and | [place], [place] | | | | | [facility], [place] [address] | [address] | | | | | [place], [place] | [phone] | | | | | [address] | | | | | | [phone] | | | +--------+ + + + [...]
--- OUTSIDE RECORDS SUMMARY | ~2019-06-13 | XMS | Encounter Summary ---
Demographics + + + | Address | [address] | | | [place] [address] | + + + | Home Phone | | + + + | Preferred Language | Unknown | + + + | Marital Status | Single | + + + | Quaker Affiliation | NON | + + + | Race | White | + + + | Ethnic Group | Not or | + + + Author + + + | Author | [facility] | + + + | Organization | [facility] | + + + | Address [...] Team Providers + +------+ + | Care Provider Relations Rep Name | Role | Phone | + +------+ + | Tomasa Wagner | PCP | | + +------+ + Reason for Visit + + + | Reason | Comments | + + + | Medical Records | [facility] - OUTSIDE PROCEDURE REPORT | | Review | | + + + Encounter Details +--------+ + + + + | Date | Type | Department | Care Team | Description | +--------+ + + + + | 07/26/ | Abstract | Digestive Health | Tai Stanton, | Medical Records | | 2013 | | Center at [facility] [address] | [address] | Review ([facility] - | | | | [facility] | [facility] | OUTSIDE PROCEDURE | | | | for [facility] and | [place], [place] | REPORT) | | | | [facility], [facility] [address] | [address] | | | | | [place], [place] | [phone] | | | | | [address] | | | | | | [phone] | | | +--------+ + + + [...]
--- OUTSIDE RECORDS SUMMARY | ~2019-06-13 | XMS | Encounter Summary ---
Demographics + + + | Address | [address] | | | [place] [address] | + + + | Home Phone [...] Team Providers + +------+ + | Care Frequency Checker Name | Role | Phone | + +------+ + PCP | Unavailable | + +------+ + Encounter Details +--------+ + + + + | Date | Type | Department | Care Team | Description | +--------+ + + + + | 04/11/ | Abstract | Digestive Health | Tai Stanton, | | | 2012 | | Center [place] [address] [address] | [address] | | | | | [address] [facility] | [facility] | | | | | for Health and | [place], [place] | | | | | [facility], [address] | [address] | | | | | [place], [place] | [phone] | | | | | [address] | | | | | | [phone] | | | +--------+ + + + [...]
--- OUTSIDE RECORDS SUMMARY | ~2019-06-13 | XMS | Encounter Summary ---
Demographics + + + | Address | [address] | | | [place] [address] | + + + | Home Phone [...] Author + + + | Author | [facility] | + + + | Organization | [facility] | + + + | Address | [...] Team Providers + +------+ + | Care Brush Trimming Machine Setter Name | Role | Phone | + +------+ + PCP | Unavailable | + +------+ + Encounter Details +--------+ + + + + | Date | Type | Department | Care Team | Description | +--------+ + + + + | 04/11/ | Abstract | Digestive Health | Tai Stanton, | | | 2012 | | Center [place] [address] [address] | [address] | | | | | [address] [facility] | [facility] | | | | | for Health and | [place], [place] | | | | | [facility], [address] | [address] | | | | | [place], [place] | [phone] | | | | | [address] | | | | | | [phone] | | | +--------+ + + + [...]
--- OUTSIDE RECORDS SUMMARY | ~2019-06-13 | XMS | Encounter Summary ---
Demographics + + + | Address | [address] | | | [place] [address] | + + + | Home Phone | | + + + | Preferred Language | Unknown | + + + | Marital Status | | + + + | Jewish Affiliation | Unknown | + + + | Race | Unknown | + + + | Ethnic Group | Unknown | + + + Author + + + | Author | [facility] | | | and [place] | + + + | Organization | [facility] | | | and [place] | + + + | Address | Unknown | + + + | Phone | Unavailable | + + + Support + + + + + | Name | Relationship | Address | Phone | + + + + + | Poncho Oquendo | ECON | [address] | | | | | [place] | | | | | [address] | | + + + + + | Marta Upton | ECON | [place] | | | | | [address] | | + + + + + Care Team Providers + +------+ + | Care Inspector Rubber Stamp Die Name | Role | Phone | + +------+ + | Valeriy Carmona DO | PCP | | + +------+ + Encounter Details +--------+ + + + + | Date | Type | Department | Care Team | Description | +--------+ + + + + | 06/23/ | Documentati | [facility] | Reinaldo, | | | 2016 | on | MED CTR MEDICAL | Epifanio Soler MD [address] | | | | | [address] | [address] | | | | | [address] | [place] [address] | | | | | [place] [address] | [phone] | | | | | [phone] | | | +--------+ + + + [...] | Visit | | DO [address] | | | | | | [place] [address] | | | | | | [phone] | | | | | | | | +--------+---------+ + + + documented as of this encounter Visit Diagnoses + + | Diagnosis | + + | Gallbladder cancer, 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
--- OUTSIDE RECORDS SUMMARY | ~2019-06-13 | XMS | Encounter Summary ---
Demographics + + + | Address | [address] | | | [place] [address] | + + + | Home Phone | | + + + | Preferred Language | Unknown | + + + | Marital Status | Single | + + + | Anabaptist Affiliation | NON | + + + | Race | White | + + + | Ethnic Group | Not or | + + + Author + + + | Author | [facility] | + + + | Organization | [facility] | + + + | Address [...] Team Providers + +------+ + | Care Core Manager Name | Role | Phone | + +------+ + | Prudencio Isaac MD | PCP | | + +------+ + Encounter Details +--------+---------+ + + + | Date | Type | Department | Care Team | Description | +--------+---------+ + + + | 04/27/ | Office | Preoperative | Jayla Barron FNP | Pre-op evaluation | | 2012 | Visit | Medicine Clinic at | [address] | (Primary Dx); | | | | [facility] 4th Floor [address] [place], | Gallbladder cancer | | | | [place] | [place] [address] | ([facility]); Other | | | | Mailcode: [facility] | [phone] | specified | | | | [facility] | | pre-operative | | | | and Healing, | | examination | | | | Building 1,4th Floor | | | | | | [place], [place] | | | | | | [address] | | | | | | [phone] | | | +--------+---------+ + + + Anesthesia Record + + + + + | Procedure Name | Responsible | Anesthesia Start | Anesthesia Stop Time | | | Anesthesiologist | Time | | + + + + + | DIAGNOSTIC | Khadar Coello | 04/28/12 0703 | 04/28/12 1433 | | LAPAROSCOPY WITH | MD Shari | | | | BIOPSY, OPEN SEGMENT | | | | | 4B/5 LIVER | | | | | RESECTION, PORTAL | | | | | LYMPHADENECTOMY | | | | | Specimens x 6 (FS) | | | | | (N/A Abdomen) | | | | + + + + + +----+---+ + + | Da | T | Event | Comment | | te | i | | | | | m | | | | | e | | | +----+---+ + + | 03 | 0 | Eq Check | Anesthesia machine checked Equipment verified | | /1 | 6 | | | | 5/ | 3 | | | | 20 | 8 | | | | 13 | | | | +----+---+ + + | | 0 | Pt. Check | Prior to anesthesia start, pt. Identified, examined, chart | | | 6 | | reviewed, PARQ held, anesthetic plan made or approved by | | | 5 | | attending anesthesiologist. NPO status confirmed as appropriate | | | 2 | | for procedure Preoperative evaluation: unchanged | +----+---+ + + | | 0 | Preprocedur | Pt ID confirmed, informed consent obtained, insertion site | | | 7 | e Checklist | marked, equipment available | | | 0 | | | | | 3 | | | +----+---+ + + | | 0 | An Start | | | | 7 | | | | | 0 | | | | | 3 | | | +----+---+ + + | | 0 | Timeout | | | | 7 | | | | | 0 | | | | | 3 | | | +----+---+ + + | | 0 | An Start | | | | 7 | Data | | | | 0 | | | | | 3 | | | +----+---+ + + | | 0 | Vitals | Monitors applied Vital signs checked Patient ready for anesthesia | | | 7 | Checked | | | | 0 | | | | | 3 | | | +----+---+ + + | | 0 | Epidural | | | | 7 | Start | | | | 0 | | | | | 3 | | | +----+---+ + + | | 0 | Epidural | | | | 7 | Stop | | | | 2 | | | | | 0 | | | +----+---+ + + | | 0 | An Start | | | | 7 | Data | | | | 3 | | | | | 6 | | | +----+---+ + + | | 0 | Vitals | Monitors applied Vital signs checked Patient ready for anesthesia | | | 7 | Checked | | | | 4 | | | | | 2 | | | +----+---+ + + | | 0 | Std. Airway | | | | 7 | Mgt. | | | | 5 | | | | | 6 | | | +----+---+ + + | | 0 | Art Line | | | | 8 | | | | | 0 | | | | | 5 | | | +----+---+ + + | | 0 | Central | | | | 8 | venous line | | | | 1 | | | | | 5 | | | +----+---+ + + | | 0 | Ready | | | | 8 | | | | | 3 | | | | | 0 | | | +----+---+ + + | | 0 | Abx | | | | 8 | Administere | | | | 5 | d | | | | 6 | | | +----+---+ + + | | 0 | Incision | | | | 9 | | | | | 0 | | | | | 1 | | | +----+---+ + + | | 1 | Quick Note | Surgeon requests lower CVP | | | 1 | | | | | 2 | | | | | 0 | | | +----+---+ + + | | 1 | Quick Note | Sustained tetany at 100 Hz | | | 3 | | | | | 5 | | | | | 3 | | | +----+---+ + + | | 1 | Surgery end | | | | 4 | | | | | 1 | | | | | 6 | | | +----+---+ + + | | 1 | an stop | | | | 4 | data | | | | 2 | | | | | 1 | | | +----+---+ + + | | 1 | Anesthesia | | | | 4 | End | | | | 3 | | | | | 3 | | | +----+---+ + + +------+ | Meds | +------+ + + + No medications | on file. | + + + + + | No agents on file. | + + + + | No blood administrations on file. | + + +--------+ + + + | Type | Details | Placement | Removal | +--------+ + + + | RETIRE | 04/28/12; 0703; 04/28/12; 1035 | 04/28/12 0703 by | 04/28/12 1035 by | | D - | | Genevieve Acosta, | Genevieve Acosta, | | Periph | | MD | MD | | eral | | | | | Line | | | | +--------+ + + + | RETIRE | 04/28/12; 03; 04/29/12; 58 | 04/28/12702 by | 04/29/12 0658 by | | D - | | Genevieve Acosta, | Marina Borges RN | | Arteri | | MD | | | al | | | | | Line | | | | +--------+ + + + | RETIRE | 04/28/12; 702; 12/02/16 | 04/28/12 0703 by | 12/02/16 1622 by | | D - | (Automatic cleanup per RA | Genevieve Acosta, | Discontinued After | | Periph | 3006--contact admin for | MD | Discharge | | eral | questions.); 1622 (Automatic | | | | Nerve | cleanup per RA 3006--contact | | | | Block/ | admin for questions.) | | | | Epidur | | | | | al | | | | | (doc. | | | | | amount | | | | | | | | | | delive | | | | | red at | | | | | 0600, | | | | | 1400, | | | | | 2200, | | | | | d/c) | | | | +--------+ + + + | RETIRE | 04/28/12; 08; 04/29/12; 1330; | 04/28/12819 by | 04/29/12 1330 by | | D - | Right; Neck; Jugular | Genevieve Acosta, | Elva Yang RN | | Centra | | MD | | | l Line | | | | +--------+ + + + | RETIRE | 04/28/12; 0820; 04/29/12; 1730; | 04/28/1220 by | 04/29/12 1730 by | | D - | 14; Left; Forearm | Genevieve Acosta, | Linden Yadav RN | | Periph | | MD | | | eral | | | | | Line | | | | +--------+ + + + | RETIRE | 04/28/12; 0821; 04/29/12; 1552; | 04/28/12 0821 by | 04/29/12 1552 by | | D - | 14; Right; Forearm | Genevieve Acosta, | Elva Yang RN | | Periph | | MD | | | eral | | | | | Line | | | | +--------+ + + + | RETIRE | 04/28/12; 0842; 05/01/12; 09; | 04/28/12 0842 by | 05/01/12 09 by | | D - | No; Maribel; 16FR | Liz Hair RN | Heather Agosto RN | | Urinar | | | | | y Cath | | | | | | | | | | Placem | | | | | ent | | | | | (Jagruti | | | | | & Cath | | | | | Care | | | | | Daily | | | | | and Q | | | | | BM) | | | | +--------+ + + + | RETIRE | 04/28/12; 1428; Endotracheal Tube | 04/28/12 1034 by | 04/28/12 1428 by | | D - | (ETT) | | Genevieve Acosta, | | ETT/Or | | | MD | | al | | | | | Airway | | | | +--------+ + + + | RETIRE | 04/28/12; 1318; Chevron incision; | 04/28/12 1318 by | 12/02/16 1622 by | | D - | anterior; abdomen; 12/02/16 | Liz Hair RN | Discontinued After | | Incisi | (Automatic cleanup per RA | | Discharge | | on | 3006--contact admin for | | | | | questions.); 1622 (Automatic | | | | | cleanup per RA 3006--contact | | | | | admin for questions.) | | | +--------+ + + + documented in this encounter Social History + + + +--------+ + [...] + + + | Blood Pressure | 114/71 | 04/27/2012 3:38 PM | | | | | PDT | | + + + + + | Pulse | 86 | 04/27/2012 3:38 PM | | | | | PDT | | + + + + + | Temperature | 36.7 C (98.1 F) | 04/27/2012 3:38 PM | | | | | PDT | | + + + + + | Respiratory Rate | 16 | 04/27/2012 3:38 PM | | | | | PDT | | + + + + + | Oxygen Saturation | 99% | 04/27/2012 3:38 PM | | | | | PDT | | + + + + + | Inhaled Oxygen | - | - | | | Concentration | | | | + + + + + | Weight | 80.7 kg (178 lb) | 04/27/2012 3:38 PM | | | | | PDT | | + + + + + | Height | 162.6 cm (5' 4") | 04/27/2012 3:38 PM | neck 34cm | | | | PDT | | + + + + + | Body Mass Index | 30.55 | 04/27/2012 3:38 PM | | | | | PDT | | + + + + + documented in this encounter Patient Instructions Patient Instructions Jayla Barron NP - 04/27/2012 4:02 PM PDT PREOPERATIVE INSTRUCTIONS Empty stomach before surgery! On the day BEFORE your surgery, drink plenty of fluids and stay well hydrated Do not eat or drink ANYTHING after midnight the night before surgery, or 8 hours prior t o surgery. This includes water, coffee, candy, mints, gum. Medications Instructions TAKE the following medications with a sip of water on the morning of surgery: Vicodin Unless otherwise directed by your surgeon, do not take any Aspirin, vitamin E or non-simon roidal anti-inflammatory (NSAIDs i.e. Advil, Aleve, Ibuprofen) or herbal supplements 7-14 da ys prior to your surgery. These drugs may interfere with normal blood clotting and may cause excessive bleeding and bruising during or after the surgery. If you are taking Coumadin (warfarin), Plavix or any other blood thinners please let you r surgical team know as medication changes may be necessary. If you need a pain medication for general purposes, use Tylenol as directed. OK to take it even on the morning of surgery, if needed. If you are in doubt about any medications that you are taking, please contact our office . Skin preparation to help avoid surgical site infections HIBICLENS GUIDE TO GENERAL SKIN CLEANSING AT HOME BEFORE SURGERY Before you bathe or shower: Read the instructions given to you by your healthcare practitioner, and begin your genera l skin cleansing protocol as directed. Carefully read all directions on the product label. Hibiclens is not to be used on the head or face, keep out of the eyes, ears and mouth. Hibiclens is not to be used in the genital area. Hibiclens should not be used if you are allergic to chlorhexidine gluconate or any other ingredients in this preparation. *See Hibiclens label for full product information and precautions. When you bathe or shower the night before your surgery: If you plan to wash your hair, do so with your regular shampoo. Then rinse hair and body thoroughly to remove any shampoo residue. Wash your face with your regular soap or water only. Thoroughly rinse your body with warm water from neck down. Use Hibiclens as you would any other liquid soap. Please do not put the Hibiclens on a wa sh cloth, apply directly to the skin and wash gently. Apply the minimum amount of Hibiclens necessary to cover the skin. Leave the Hibiclens on your skin for 1 minute, then rinse off. Rinse thoroughly with warm water. Do not use your regular soap after applying and rinsing Hibiclens. When using Hibiclens for a second day in a row (morning of surgery, as soon as you wake up) : Shower/bathe again using Hibiclens in the same method as described above. Do not apply any lotions, deodorants, powders or perfumes to the body areas that have been cleaned with Hibiclens. Other Important Guidelines Do not shave the surgical area Do not smoke, drink alcohol or use recreational drugs for 24 hours before your surgery Watch for any change in your health condition. Let your surgeon know right away if you do not feel well. Do not wear makeup, perfume, lotions, deodorant, powder or hairspray. Do not wear any jewelry to the hospital. Wear loose, comfortable clothing. Leave all your valuables at home. Allow enough travel time so you re not late for your check in for surgery. Take a bath or shower and remember to shampoo your hair using your usual hair product bef ore your arrival at the hospital. Please remember to brush your teeth the night before and the morning of your procedure. Preventing post op complications while you are in the hospital Use an incentive spirometer or peep breathe to keep your lungs working properly an d to help prevent respiratory complications. It helps you take long, deep breaths. Use it at least once every hour while you are awake. Leg and feet exercises will maintain good circulation and help prevent blood clots in yo ur legs. Sometimes your doctor will order air compression stockings. Compressed air helps the circulation in your legs. Walking and moving will help stimulate normal circulation and deep breathing. After you r surgery, your nurse may ask you to sit, stand or walk. Surgery Check in Locations Day Stay Unit [facility], fourth floor Room 4514 [facility], fourth floor Admitting [facility], ninth floor [facility] Surgery Unit [facility], sixth floor Surgery Check in Time: The Preoperative Medicine Clinic is not in the position to give you accurate information regarding surgical check in time. We refer you back to your surgical office regarding this important information. Going Home Your surgical team will decide when you are medically ready to go home. If you are released to go home on the same day as your procedure/surgery please note the following: You will not be able to drive. You will be required to have a competent person drive you or accompany you by taxi or pu blic transportation on the day of discharge. It is also required that you have a competent person assist you and look after you on th e first night after you have undergone regional blocks (72 hours for patients going home wit h regional block pump), deep sedation, and/or general anesthesia. If you stayed in the hospital after surgery, please arrange for your ride to come for yo u around 9AM on the day your doctor says you can go home. Check out time is 11AM. If you have questions or concerns after you go home, call your doctor s office. If it is after office hours, call the [facility] lathe setup operator at [phone] and ask them to page him or h er. Preparing For Your Surgery Video -- 7 minutes of instructions! If you have access to the Internet and would like to review our instructional video about g etting ready for your procedure day, please follow these directions: Access the [facility] website [email or web address] --> POPULAR RESOURCES --> Patient Guide --> Preparing for your Visit or Surgery --> "Preparing for Your Surgery" video link documented in this encounter Progress Notes Darlin Jones MA - 04/27/2012 4:19 PM PDT Venipuncture performed in clinic, blood sample obtained from Right antecubital site Hemoglo bin A1C POCT performed during clinic visit. Blood sample obtained from venipuncture performe d to obtain other lab tests. ayla Barron NP - 04/27/2012 3:58 PM PDT PREOPERATIVE CONSULT NOTE Consulting Provider: JAYLA BARRON NP Referring Physician: Dr. Tai Statnon Primary Care Provider: Prudencio Isaac MD Reason for Consult: Preoperative evaluation and risk assessment Proposed Procedure/Date: Open Segment B4/5 Liver Resection, Portal Lymphadenectomy, Possibl e Hepaticojejunostomy on 04/28/12 HISTORY OF PRESENT ILLNESS: Aura Upton is a 51 y.o. female here for preoperative eval uation for above procedure. Pt reports that she has gall bladder CA. Approx 2 months ago, went to the ED for 3 week hi story of flu symptoms that would not resolve. Lab tests and diagnostics indicated she had g all stones. She had gall bladder surgery 1 month later. She reports that a mass was identi fied during the gall bladder surgery. She has no hx nor symptoms of CAD, CHF, CVA, CKD or D M (treated with insulin). Functional capacity is Intermediate ROS: Pulmonary: Within Defined Limits except as noted below no cough no shortness of breath no wheezing Pt. Has no asthma No dx of sleep apnea Cardiovascular: Exercises: Can walk >4-5 blocks and up 1-2 flights of stairs without stopping. >4 Mets Within Defined Limits except as noted below Functional Capacity: Moderate - chest pressure and syncope no CAD no CHF no pacemaker GI/Hepatic: Within Defined Limits except as noted below no GI Bleed no GERD No liver disease no hepatitis : Within Defined Limits except as noted below Endo: Within Defined Limits except as noted below Neurological: Within Defined limits except as noted below no seizures no HX CORTICOSTEROID no psychiatric problem no dementia pain (low back) Current pain level: 3 MS: Within Defined Limits except as noted below no arthritis Heme/Onc: Within Defined Limits except as noted below Pt. has: no active bleeding no Bleeding diathesis / thrombotic bleeding Malignancy: no cancer, Location: Metastasis: Skin: Within Defined Limits except as noted below No open wounds or sores No hx MRSA/VRE/Active skin infection Current Medication List Name Sig HYDROCODONE-ACETAMINOPHEN 5 MG-325 MG TABLET Take 1 Tab by mouth as needed. Not to exceed 1 0 tablets per any 24 hour period. (Not to exceed 3250 mg of acetaminophen from all products per 24 hour period.) No Known Allergies Past Medical History Diagnosis Date Chronic back pain greater than 3 months duration Past Surgical History Procedure Date Tubal ligation 2002 section 1998 Endoscopic sinus surgery 2009 Family History Problem Relation Diabetes Father Coronary Artery Disease Father History Substance Use Topics Smoking status: Former Smoker -- 0.5 packs/day for 25 years Types: Cigarettes Quit date: 02/14/2006 Smokeless tobacco: Never Used Alcohol Use: 0.5 oz/week 1 Glasses of wine per week 2-3 glasses of wine per month. PHYSICAL EXAM: Last Vitals: BP 114/71 | Pulse 86 | Temp (Src) 36.7 C (98.1 F) (Oral) | RR 16 | Ht 1.62 6 m (5' 4") | Wt 80.74 kg (178 lb) | SpO2 99% | BMI 30.55 kg/(m^2) Body mass index is 30.55 kg/(m^2). General: Patients general appearance: Healthy, Alert, No distress, Cooperative and Age appropriate Head & Neck/Airway: Normal appearing ears and nose. Neck ROM: full Neck Circumference: 34 cm. TM Distance:Normal Dentition: dental implants, bridges or caps present Chahal: No Mallampati: III Mouth Opening: > = 3 cm C-Spine: normal Neck Anatomy: Normal Jaw Protrusion: Normal, lower incisors can protrude past upper incisors Lung Exam: No respiratory distress. Normal breathing pattern. breath sounds normal Cardiac: No murmurs, gallops or rubs. Rhythm: regular Rate: normal Abdominal: General Findings: Deferred Musculoskeletal: Findings: tone normal Neuro/Psych: No focal neuro deficits; Alert and appropriate; nl affect. alert Findings: Alert, oriented to person, place, time and Normal affect Integument: No open rashes or lesions noted. - lesion, rash and open wounds Color: pink Turgor: turgor normal Implants: None, LAB DATA REVIEWED/ORDERED Lab Results Component Value Date WBC 5.3 04/12/2012 HB 14.4 04/12/2012 HCT 42.3 04/12/2012 PLT 297 04/12/2012 MCV 86.5 04/12/2012 RDW 12.6 04/12/2012 Lab Results Component Value Date NA 139 04/12/2012 K 5.4 04/12/2012 CL 99 04/12/2012 BICARB 28 04/12/2012 BUN 10 04/12/2012 CR 0.70 04/12/2012 GLU 100 04/12/2012 CA 8.8 04/12/2012 AST 37 04/12/2012 ALT 20 04/12/2012 AP 118 04/12/2012 TBILI 0.9 04/12/2012 TP 7.3 04/12/2012 ALB 4.1 04/12/2012 Lab Results Component Value Date A1C 5.1 04/27/2012 EKG: NSR MEDICAL DECISION MAKIN ACC/ AHA Perioperative Guidelines 1. Need for emergency noncardiac surgery? b. No -> Proceed to next step. 2. Active Cardiac Conditions? These conditions mandate further investigation and manageme nt. A. Acute SD within 7 days: no B. Unstable angina/Recent SD (7- 30 days): no C. Decompensated CHF: no D. Significant arrhythmia: None E. Severe valvular disease: NONE 3. Low risk surgery? b. No -> proceed with next step. 4. Good functional capacity? MET ASSESSMENT: 5. METS--walking briskly, washing the car. 5. Assess Clinical Risk Factors? A. Ischemic heart disease: no B. Compensated / prior heart failure: no C. Diabetes mellitus (treated with insulin): no D. Renal insufficiency (Cr > 2): no E. Cerebrovascular disease: no Rate of cardiac , non fatal SD, non fatal cardiac arrest (RCRI) 0 risk factors - 0.4% 1 risk factors - 1%, 2 risk factors - 7%, 3 or >risk factors - 11% (may benefit from perioperative beta blockers) Risk Factor Recommendations: 0 risk factors- proceed with planned surgery Surgery Risk: Intermediate Patient-related risk: Estimated ASA class -- 1 ASSESSMENT and RECOMMENDATIONS: Surgical/anesthesia risk assessment: Aura Upton is a 51 y.o. female with diagnosis of Gallbladder CA, scheduled for above. According to ACC/AHA, this patient has 0 clinical risk factors and the recommendation is to proceed with planned surgery without additional ca rdiac testing. Medication management recommendations: The patient was advised to continue all usual med ications except as noted in Patient Instructions (After Visit Summary given to pt) Perioperative antibiotic prophylaxis: Standard (Consider IV Vanco one hr before procedu re in pts with Cephalosporin/PCN allergy and/or with hx of MRSA) This patient is medically stable for surgery. Further testing/optimization is not needed. Thank you for the opportunity to contribute to this patient's care. JAYLA BARRON NP [facility] PREOPERATIVE MEDICINE CLINIC [address] [place] [phone] I spent 20 minutes with the patient. Greater than 50% of the time was spent counseling the patient regarding perioperative risk assessment (cardiac, bleeding, surgical site infection , etc) and methods to avoid post op complications including respiratory failure/hospital acq uired pneumonia and DVT. The patient was also advised regarding NPO requirement, hydration before surgery, showering, general body hygiene. All pre-procedure instructions given to th e patient. All of patient's questions answered and clarified. Patient verbalized understan ding of the instructions given. documented in this encounter Plan of Treatment Not on filedocumented as of this encounter Procedures + +--------+ + + + | Procedure Name | Priori | Date/Time | Associated Diagnosis | Comments | | | ty | | | | + +--------+ + + + | TYPE AND SCREEN | Routin | 04/27/2012 | Gallbladder cancer | Results for this | | | e | 7:44 PM | (HCC) | procedure are in the | | | | PDT | | results section. | + +--------+ + + + | GA COLLECTION VENOUS | Routin | 04/27/2012 | Other specified | | | BLOOD,VENIPUNCTURE | e | 4:19 PM | pre-operative | | | | | PDT | examination | | + +--------+ + + + | COMPLETE METABOLIC | Routin | 04/27/2012 | Gallbladder cancer | Results for this | | SET | e | 4:02 PM | (HCC) Pre-op | procedure are in the | | (NA,K,CL,CO2,BUN,CRE | | PDT | evaluation | results section. | | AT,GLUC,CA,AST,ALT,B | | | | | | CIRILO TOTAL,ALK | | | | | | PHOS,ALB,PROT TOTAL) | | | | | + +--------+ + + + | ANTIBODY SCREEN | Routin | 04/27/2012 | Gallbladder cancer | Results for this | | | e | 4:02 PM | (HCC) | procedure are in the | | | | PDT | | results section. | + +--------+ + + + | ABO & RH TYPE | Routin | 04/27/2012 | Gallbladder cancer | Results for this | | | e | 4:02 PM | (HCC) | procedure are in the | | | | PDT | | results section. | + +--------+ + + + | 12 LEAD ECG | Routin | 04/27/2012 | Gallbladder cancer | Results for this | | | e | 3:53 PM | (HCC) | procedure are in the | | | | PDT | | results section. | + +--------+ + + + | HEMOGLOBIN A1C, POC | Routin | 04/27/2012 | Gallbladder cancer | Results for this | | | e | 3:13 PM | (HCC) | procedure are in the | | | | PDT | | results section. | + +--------+ + + + documented in this encounter Results COMPLETE METABOLIC SET (NA,K,CL,CO2,BUN,CREAT,GLUC,CA,AST,ALT,BILI TOTAL,ALK PHOS,ALB,PROT TOTAL) (04/27/2012 4:02 PM PDT) + +---------+ + + + | Component | Value | Ref Range | Performed | Pathologist | | | | | At | Signature | + +---------+ + + + | GLUCOSE, | 76 | 60 - 99 mg/dL | [facility] | | | PLASMA | | | LABORATORY | | | (LAB) | | | SERVICES, | | | | | | CORE | | + +---------+ + + + | BUN, PLASMA | 11 | 6 - 20 mg/dL | [facility] | | | (LAB) | | | LABORATORY | | | | | | SERVICES, | | | | | | CORE | | + +---------+ + + + | CREATININE | 0.64 | 0.60 - 1.10 | [facility] | | | PLASMA | | mg/dL | LABORATORY | | | (LAB) | | | SERVICES, | | | | | | CORE | | + +---------+ + + + | EGFR | >60 | mL/min | [facility] | | | - | | | LABORATORY | | | [place] | | | SERVICES, | | | | | | CORE | | + +---------+ + + + | EGFR NON | >60 | mL/min | [facility] | | | -[facility] | | | LABORATORY | | | [facility] | | | SERVICES, | | | | | | CORE | | + +---------+ + + + | SODIUM, | 139 | 136 - 145 | [facility] | [...] +---------+ + + + | TOTAL | 6.7 | 6.1 - 7.9 g/dL | [facility] | | | PROTEIN, [...] + + + | ALK PHOS | 129 (H) | 42 - 98 U/L | [facility] | | | | | | LABORATORY | | | | | | SERVICES, | | | | | | CORE | | + +---------+ + + + | AST(SGOT) | 27 | 15 - 41 U/L | [facility] | | | | | | LABORATORY | | | | | | SERVICES, | | | | | | CORE | | + +---------+ + + + | ALT (SGPT) | 42 | 12 - 60 U/L | [facility] | | | | [...] + + + | ANION GAP | 9 | 4 - 11 mmol/L | [facility] | | | | [...] + | [facility] | [address] | [place] [address] | | | SERVICES, CORE | [address] | | | + + + + + ANTIBODY SCREEN (04/27/2012 4:02 PM PDT) + + + + + + | Component | Value | Ref Range | Performed | Pathologist | | | | | At | Signature | + + + + + + | Antibody | Negative | | [facility] | | | Screen | | | LABORATORY | | | | | | SERVICES, | | | | | | TRANSFUSION | | | | | | MEDICINE | | + + + + + + + + | Specimen | + + | Blood - Blood | + + + + + + + | Performing | Address | City/State/Zipcode | Phone Number | | Organization | | | | + + + + + | [facility] | [address] | [place] [address] | | | SERVICES, | [address] | | | | TRANSFUSION MEDICINE | | | | + + + + + ABO & RH TYPE (04/27/2012 4:02 PM PDT) + + + + + + | Component | Value | Ref Range | Performed | Pathologist | | | | | At | Signature | + + + + + + | ABO Group | O | | [facility] | | | | | | LABORATORY | | | | | | SERVICES, | | | | | | TRANSFUSION | | | | | | MEDICINE | | + + + + + + | Rh Type | Positive | | [facility] | | | | | | LABORATORY | | | | | | SERVICES, | | | | | | TRANSFUSION | | | | | | MEDICINE | | + + + + + + + + | Specimen | + + | Blood - Blood | + + + + + + + | Performing | Address | City/State/Zipcode | Phone Number | | Organization | | | | + + + + + | [facility] | [address] | [place] [address] | | | SERVICES, | [address] | | | | TRANSFUSION MEDICINE | | | | + + + + + 12 LEAD ECG (04/27/2012 3:53 PM PDT) + + + + + + | Component | Value | Ref Range | Performed | Pathologist | | | | | At | Signature | + + + + + + | VENTRICULAR | 65 | BPM | [facility] | | | RATE | | | OF | | | | | | CARDIOLOGY | | + + + + + + | ATRIAL RATE | 65 | BPM | [facility] | | | | | | OF | | | | | | CARDIOLOGY | | + + + + + + | P-R | 142 | ms | [facility] | | | INTERVAL | | | OF | | | | | | CARDIOLOGY | | + + + + + + | QRS | 86 | ms | [facility] | | | DURATION | | | OF | | | | | | CARDIOLOGY | | + + + + + + | QT | 398 | ms | [facility] | | | | | | OF | | | | | | CARDIOLOGY | | + + + + + + | QTC | 413 | ms | [facility] | | | | | | OF | | | | | | CARDIOLOGY | | + + + + + + | P AXIS | 56 | degrees | [facility] | | | | | | OF | | | | | | CARDIOLOGY | | + + + + + + | R AXIS | 36 | degrees | [facility] | | | | | | OF | | | | | | CARDIOLOGY | | + + + + + + | T AXIS | 36 | degrees | [facility] | | | | | | OF | | | | | | CARDIOLOGY | | + + + + + + | EKG | Normal sinus | | [facility] | | | DIAGNOSIS | rhythmNormal ECG"I have | | OF | | | | personally interpreted | | CARDIOLOGY | | | | this report, either | | | | | | alone or with a | | | | | | trainee."Confirmed by | | | | | | JAVIER SANTIAGO ([id number]) on | | | | | | 04/29/2012 9:10:17 AM | | | | + + + + + + + + | Specimen | + + | | + + + + + | Narrative | Performed At | + + + | Please click | [facility] | | on view image for the detailed interpretation from Brows[employer] results. | CARDIOLOGY | + + + + + + + + | Performing | Address | City/State/Zipcode | Phone Number | | Organization | | | | + + + + + | [facility] | [address] | [place], [place] | | | CARDIOLOGY | [facility] | [address] | | + + + + + HEMOGLOBIN A1C, POC (04/27/2012 3:13 PM PDT) + +-------+ + + + | Component | Value | Ref Range | Performed | Pathologist | | | | | At | Signature | + +-------+ + + + | HEMOGLOBIN | 5.1 | 4.0 - 5.7 % | [facility], | | | A1C,POC | | | POINT OF | | | | | | CARE TESTS | | + +-------+ + + + + + | Specimen | + + | Blood | + + + + + + + | Performing | Address | City/State/Zipcode | Phone Number | | Organization | | | | + + + + + | [facility] | [address] | [place] [address] | | | OF CARE TESTS | | | | + + + + + documented in this encounter Visit Diagnoses + + | Diagnosis | + + | Pre-op evaluation - Primary Preoperative examination, unspecified | + + | 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
--- OUTSIDE RECORDS SUMMARY | ~2019-06-13 | XMS | Encounter Summary ---
Demographics + + + | Address | [address] | | | [place] [address] | + + + | Home Phone | | + + + | Preferred Language | Unknown | + + + | Marital Status | | + + + | Jainism Affiliation | Unknown | + + + | Race | Unknown | + + + | Ethnic Group | Unknown | + + + Author + + + | Author | [facility] | | | and Eduardo[place] | + + + | Organization | [facility] | | | and Eduardo[place] | + + + | Address | Unknown | + + + | Phone | Unavailable | + + + Support + + + + + | Name | Relationship | Address | Phone | + + + + + | Poncho Oquendo | ECON | [address] | | | | | [facility] [place] | | | | | [address] | | + + + + + | Marta Upton | ECON | [place] | | | | | [address] | | + + + + + Care Team Providers + +------+ + | Care Health And Wellness Instructor Name | Role | Phone | + [...] | | renal and | OBED, | [place], [place] | | | | | ureteral | [place] | [address] Phone: | | | | | calculous | [address] | [phone] | | | | | obstruction | Phone: | Fax: | | | | | | [phone] | [phone] | | | | | | Fax: | | | | | | | [phone] | | +--------+--------+ + + + + Encounter Details +--------+---------+ + + + | Date | Type | Department | Care Team | Description | +--------+---------+ + + + | 11/21/ | Office | [facility] | Pedro Green, | Cholangiocarcinoma | | 2019 | Visit | UROLOGY [address] | DO [address] | (HCC) (Primary Dx); | | | | [address] | [place] [address] | Obstruction of left | | | | [place], [place] | [phone] | ureter | | | | [address] | | | | | | [phone] | | | +--------+---------+ + + + [...] encounter Patient Instructions Patient Instructions Kalina Hughes, Patternmaker Sample - 11/21/2018 10:30 AM PDTPLAN IMAGING NEED [...] Per Admission Appointment to assure your safety [facility] anesthesia and surgery. Location: [facility] ([address] [place] [address]) Time: The day before surgery someone from the hospital will call you to give you your arriv al time. Be advised, they will call you in the late afternoon or early evening. Please do not contact our office to find out your time of arrival. IF YOU HAVE A ESCALATOR MECHANIC You MUST receive a cardiac clearance from your datapower developer prior to surgery. A pre-admission (registration) appointment [...] IT OFF OR FAX IT TO US ([phone]) AT LEAST 2 WEEKS PRIOR TO SURGERY. MAKE SURE TO IN CLUDE TIME OFF NEEDED/WHEN YOU PLAN TO RETURN TO WORK. documented in this encounter Progress Notes Pedro Green DO - 11/21/2018 10:30 AM PDTFormatting of this note might be different fr om the original. [facility] Urology Primary Care Provider: No Physician [...] well. Her last excha nge was at [facility] during a septic episode. 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
--- OUTSIDE RECORDS SUMMARY | ~2019-06-13 | XMS | Encounter Summary ---
Demographics + + + | Address | [address] | | | [place] [address] | + + + | Home Phone [...] Author + + + | Author | [facility] | + + + | Organization | [facility] | + + + | Address | [...] Team Providers + +------+ + | Care Drop Board Worker Name | Role | Phone | + +------+ + | Tomasa Wagner | PCP | | + +------+ + Reason for Visit + + + | Reason | Comments | + + + | Medical Records | US abd 8/ | | Review | | + + + Encounter Details +--------+ + + + + | Date | Type | Department | Care Team | Description | +--------+ + + + + | 09/29/ | Abstract | [facility] | Romy Tai, | Medical Records | | 2012 | | Center at [facility] [address] | [address] | Review ( abd ) | | | | [address] [facility] | [facility] | | | | | [facility] and | [place], [place] | | | | | [facility], [facility] [address] | [address] | | | | | [place], [place] | [phone] | | | | | [address] | | | | | | [phone] | | | +--------+ + + + [...] documented as of this encounter Progress Notes Beth Osorio MA - 09/29/2012 3:37 PM PDTImages in Impax documented in this encounter Plan of Treatment Not on filedocumented as of this encounter Visit Diagnoses Not on filedocumented in this encounter"
--- OUTSIDE RECORDS SUMMARY | ~2019-06-13 | XMS | Encounter Summary ---
Demographics + + + | Address | [address] | | | [place] [address] | + + + | Home Phone | | + + + | Preferred Language | Unknown | + + + | Marital Status | Single | + + + | Protestant Affiliation | NON | + + + | Race | White | + + + | Ethnic Group | Not or | + + + Author + + + | Organization | Unknown | + + + | Address | [...] Team Providers + +------+ + | Care Studio Couch Frame Builder Name | Role | Phone | + +------+ + PCP | Unavailable | + +------+ + Encounter Details +--------+ + + + + | Date | Type | Department | Care Team | Description | +--------+ + + + + | 03/22/ | Results | | Other, Faculty | | | 2003 | Only | | [phone] | | +--------+ + + + + [...] | + +--------+ + + + | CYTOGENETICS REPORT | Routin | 03/22/2002 | | Results for this | | | e | | | procedure are in the | | | | | | results section. | + +--------+ + + + documented in this encounter Results CYTOGENETICS REPORT (03/22/2002) + + + + + + | Component | Value | Ref Range | Performed | Pathologist | | | | | At | Signature | + + + + + + | CHROMOSOME | SPECIMEN TYPE AND TYPE | | | | | REPORT | OF STUDY:A Solid | | | | | | Tissue/Skin: Full | | | | | | StudyChromosome Results: | | | | | | NormalKARYOTYPE | | | | | | RESULTS: 46,XY | | | | | | IMPRESSIONS AND | | | | | | RECOMMENDATIONS:Normal | | | | | | male karyotype. | | | | | | CYTOGENETIC ANALYSIS | | | | | | SUMMARY:Number of Cells | | | | | | Analyzed: 20 | | | | | | Banding Level: 450Number | | | | | | of Cells Karyotyped: | | | | | | 2 Banding Method: | | | | | | GTW For questions | | | | | | regarding this report, | | | | | | please call [phone] | | | | | | [phone].Rendering | | | | | | Diagnostician: Alma Delia | | | | | | Ana, PhD, ABMG, | | | | | | FACMGCytogeneticistElect | | | | | | ronically Signed | | | | | | 04/06/2002Comment: | | | | | | SOURCE OF SPECIMEN: | | | | | | Solid Tissue/Skin: Full | | | | | | Study | | | | + + + + + + + + | Specimen | + + | | + + + + + | Narrative | Performed At | + + + | Ordered by Yaw Marcelo SOLE BUFFER | | + + + + + + + + | Performing | Address | City/State/Zipcode | Phone Number | | Organization | | | | + + + + + | [facility] | [facility] | [place] [address] | | | GENETICS LABS | [address] | | | | | [address]VE[address] | | | + + + + + documented in this encounter Visit Diagnoses Not on filedocumented in this encounter"
--- OUTSIDE RECORDS SUMMARY | ~2019-06-13 | XMS | Encounter Summary ---
Demographics + + + | Address | [address] | | | [place] [address] | + + + | Home Phone [...] Team Providers + +------+ + | Care Vacuum Cleaner Repair Person Name | Role | Phone | + +------+ + | Prudencio Isaac MD | PCP | | + +------+ + Encounter Details +--------+------+ + + + | Date | Type | Department | Care Team | Description | +--------+------+ + + + | 04/12/ | Lab | [facility] at [facility] | | Gallbladder cancer | | 2012 | | [address] | | (HCC) | | | | [facility] | | | | | | and Healing, | | | | | | [address] | | | | | | [place], [place] | | | | | | [address] | | | | | | [phone] | | | +--------+------+ + + + Social History + + [...] + | CBC ONLY | Routin | 04/12/2012 | Gallbladder cancer | Results for this | | | e | 2:04 PM | (HCC) | procedure are in the | | | | PST | | results section. | + +--------+ + + + | INR | Routin | 04/12/2012 | Gallbladder cancer | Results for this | | | e | 2:04 PM | (HCC) | procedure are in the | | | | PST | | results section. | + +--------+ + + + | CARCINOEMBRYONIC AG, | Routin | 04/12/2012 | Gallbladder cancer | Results for this | | SERUM | e | 2:04 PM | (HCC) | procedure are in the | | | | PST | | results section. | + +--------+ + + + | COMPLETE METABOLIC | Routin | 04/12/2012 | Gallbladder cancer | Results for this | | SET | e | 2:04 PM | (HCC) | procedure are in the | | (NA,K,CL,CO2,BUN,CRE | | PST | | results section. | | AT,GLUC,CA,AST,ALT,B | | | | | | CIRILO TOTAL,ALK | | | | | | PHOS,ALB,PROT TOTAL) | | | | | + +--------+ + + + | CANCER AG GI (19-9), | Routin | 04/12/2012 | Gallbladder cancer | Results for this | | SERUM | e | 2:04 PM | (HCC) | procedure are in the | | | | PST | | results section. | + +--------+ + + + | CBC ONLY | Routin | 04/12/2012 | Gallbladder cancer | Results for this | | | e | 2:04 PM | (HCC) | procedure are in the | | | | PST | | results section. | + +--------+ + + + documented in this encounter Results CBC (04/12/2012 2:04 PM PST) + +-------+ + + + | Component | Value | Ref Range | Performed | Pathologist | | | | | At | Signature | + +-------+ + + + | WBC COUNT | 5.3 | 4.4 - 11.0 K/cu | [facility] | | | | | mm | LABORATORY | | | | | | SERVICES, | | | | | | CORE | | + +-------+ + + + | RED CELL | 4.89 | 4.00 - 5.20 | [facility] | | | COUNT | | M/cu mm | LABORATORY | | | | | | SERVICES, | | | | | | CORE | | + +-------+ + + + | HEMOGLOBIN | 14.4 | 12.0 - 16.0 | [facility] | | | | | g/dL | LABORATORY | | | | | | SERVICES, | | | | | | CORE | | + +-------+ + + + | HEMATOCRIT | 42.3 | 36.0 - 46.0 % | [facility] | | | | | | LABORATORY | | | | | | SERVICES, | | | | | | CORE | | + +-------+ + + + | MCV | 86.5 | 80.0 - 96.0 fL | [facility] | | | | | | LABORATORY | | | | | | SERVICES, | | | | | | CORE | | + +-------+ + + + | MCHC | 34.2 | 33.4 - 35.5 | [facility] | | | | | g/dL | LABORATORY | | | | | | SERVICES, | | | | | | CORE | | + +-------+ + + + | RDW | 12.6 | 11.5 - 15.0 % | [facility] | | | | | | LABORATORY | | | | | | SERVICES, | | | | | | CORE | | + +-------+ + + + | PLATELET | 297 | 150 - 400 K/cu | [facility] [...] [facility] | [address] | [place] [address] | | | SERVICES, CORE | [address] | | | + + + + + CARCINOEMBRYONIC AG, SERUM (04/12/2012 2:04 PM PST) + + + + + + | Component | Value | Ref Range | Performed | Pathologist | | | | | At | Signature | + + + + + + | CEA-CARCINO | 1.1Comment: INTERPRETIVE | 0.0 - 3.0 ng/mL | [facility] | | | EMBRYONIC | INFORMATION: | | REG UNIV | | | AG, SERUM | Carcinoembryonic | | PTH - INTFC | | | | Antigen:The Radha | | | | | | Modular E170 CEA | | | | | | electrochemiluminescenti | | | | | | mmunoassay was used. | | | | | | Results obtained with | | | | | | different assaymethods | | | | | | or kits cannot be used | | | | | | interchangeably. | | | | | | Measurementof CEA has | | | | | | been shown to be | | | | | | clinically relevant in | | | | | | themanagement of | | | | | | patients with | | | | | | colorectal, breast, | | | | | | lung,prostatic, | | | | | | pancreatic, and ovarian | | | | | | carcinomas. Smokers | | | | | | mayhave slightly | | | | | | elevated levels of CEA. | | | | | | The CEA assay | | | | | | value,regardless of | | | | | | level, should not be | | | | | | interpreted as | | | | | | evidencefor the presence | | | | | | or absence of 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| | | | | disease and is | | | | | | notrecommended for use | | | | | | as a screening procedure | | | | | | to detect thepresence | | | | | | of cancer in the general | | | | | | population.Performed by | | | | | | [employer],[address] | | | | | | [address], [facility] [place] | | | | | | [address] | | | | | | [phone].[employer]. | | | | | | [facility], Lala Blum, | | | | | | MD Lab. Director | | | | + + + + + + + + | Specimen | + + | Blood - Blood | + + + + + + + | Performing | Address | City/State/Zipcode | Phone Number | | Organization | | | | + + + + + | [facility] | [address] | [place], [place] | | | UNIV PTH - INTFC | | [address] | | + + + + + CANCER AG GI (19-9), SERUM (04/12/2012 2:04 PM PST) + + + + + + | Component | Value | Ref Range | Performed | Pathologist | | | | | At | Signature | + + + + + + | CANCER AG | 10Comment: INTERPRETIVE | 0 - 37 U/mL | [facility] | | | GI (19-9) | INFORMATION: Cancer | | REG UNIV | | | | Antigen-GI (CA 19-9)The | | PTH - INTFC | | | | Radha Modular E170 CA | | | | | | 19-9 | | | | | | electrochemiluminescenti | | | | | | mmunoassay is used. | | | | | | Results obtained with | | | | | | different assaymethods | | | | | | or kits cannot be used | | | | | | interchangeably. CA 19-9 | | | | | | isuseful in monitoring | | | | | | pancreatic, | | | | | | hepatobiliary, | | | | | | gastric,hepatocellular, | | | | | | and colorectal cancer. | | | | | | The CA 19-9 assayvalue, | | | | | | regardless of level, | | | | | | should not be | | | | | | interpreted asabsolute | | | | | | evidence of the presence | | | | | | or absence of | | | | | | malignantdisease.Perform | | | | | | ed by [facility] | | | | | | [facility],[address] [place] [address] | | | | | | [place] [address] | | | | | | [phone]. | | | | | | [place], Lala Blum, | | | | | | , Lab. Director | | | | + + + + + + + + | Specimen | + + | Blood - Blood | + + + + + + + | Performing | Address | City/State/Zipcode | Phone Number | | Organization | | | | + + + + + | [facility] | [address] | [place], [place] | | | UNIV PTH - INTFC | | [address] | | + + + + + INR (04/12/2012 2:04 PM PST) + +-------+ + + + | Component | Value | Ref Range | Performed | Pathologist | | | | | At | Signature | + +-------+ + + + | INR | 1.02 | 0.90 - 1.20 INR | [facility] [...] mech. valves (2.5 - 3.5) INR | SERVICES, CORE | + + + + + + + + | Performing | Address | City/State/Zipcode | Phone Number | | Organization | | | | + + + + + | [facility] | [address] | [place] [address] | | | SERVICES, [facility] | [address] | | | + + + + + COMPLETE METABOLIC SET (NA,K,CL,CO2,BUN,CREAT,GLUC,CA,AST,ALT,BILI TOTAL,ALK PHOS,ALB,PROT TOTAL) (04/12/2012 2:04 PM PST) + +---------+ + + + | Component | Value | Ref Range | Performed | Pathologist | | | | | At | Signature | + +---------+ + + + | GLUCOSE, | 100 (H) | 60 - 99 mg/dL | [facility] | | | PLASMA | | | LABORATORY | | | (LAB) | | | SERVICES, | | | | | | [facility] | | | [facility] + | | | | | | HEALING | | + +---------+ + + + | BUN, PLASMA | 10 | 6 - 20 mg/dL | [facility] | | | (LAB) | | | LABORATORY | | | | | | SERVICES, | | | | | | [facility] + | | | | | | [facility]AL[facility] | | + +---------+ + + + | CREATININE | 0.70 | 0.60 - 1.10 | [facility] | | | PLASMA | | mg/dL | LABORATORY | | | (LAB) | | | SERVICES, | | | | | | [facility] | [facility] + | | | | | | HEALING | | + +---------+ + + + | EGFR | >60 | mL/min | [facility] | | | - | | | LABORATORY | | | ICELANDIC | | | SERVICES, | | | | | | [facility] | | [facility] + | | | | | | HEALING | | + +---------+ + + + | EGFR NON | >60 | mL/min | [facility] | | | -DIMAS | | | LABORATORY | | | RICAN | | | SERVICES, | | | | | | [facility] | [facility] + | | | | | | HEALING | | + +---------+ + + + | SODIUM, | 139 | 134 - 143 | [facility] | | | PLASMA | | mmol/L | LABORATORY | | | (LAB) | | | SERVICES, | | | | | | [facility] | [facility] + | | | | | | HEALING | | + +---------+ + + + | POTASSIUM, | 5.4 (H) | 3.4 - 5.0 | [facility] | | | PLASMA | | mmol/L | LABORATORY | | | (LAB) | | | SERVICES, | | | | | | [facility] | [facility] + | | | | | | HEALING | | + +---------+ + + + | CHLORIDE, | 99 | 97 - 108 mmol/L | [facility] | | | PLASMA | | | LABORATORY | | | (LAB) | | | SERVICES, | | | | | | [facility] | | | [facility] + | | | | | | HEALING | | + +---------+ + + + | TOTAL CO2, | 28 | 22 - 29 mmol/L | [facility] | | | PLASMA | | | LABORATORY | | | (LAB) | | | SERVICES, | | | | | | [facility] | [facility] + | | | | | | HEALING | | + +---------+ + + + | CALCIUM, | 8.8 | 8.6 - 10.2 | [facility] | | | PLASMA | | mg/dL | LABORATORY | | | (LAB) | | | SERVICES, | | | | | | [facility] | | [facility] + | | | | | | HEALING | | + +---------+ + + + | BILIRUBIN | 0.9 | 0.3 - 1.2 mg/dL | [facility] | | | TOTAL | | | LABORATORY | | | | | | SERVICES, | | | | | | [facility] | | [facility] + | | | | | | HEALING | | + +---------+ + + + | TOTAL | 7.3 | 6.1 - 7.9 g/dL | [facility] | | | PROTEIN, | | | LABORATORY | | | PLASMA | | | SERVICES, | | | (LAB) | | | [facility] | | | | | [facility] + | | | | | | HEALING | | + +---------+ + + + | ALBUMIN, | 4.1 | 3.5 - 4.7 g/dL | [facility] | | | PLASMA | | | LABORATORY | | | (LAB) | | | SERVICES, | | | | | | [facility] | | | [facility] + | | | | | | HEALING | | + +---------+ + + + | ALK PHOS | 118 (H) | 42 - 98 U/L | [facility] | | | | | | LABORATORY | | | | | | SERVICES, | | | | | | [facility] | | [facility] + | | | | | | HEALING | | + +---------+ + + + | AST(SGOT) | 37 | 15 - 41 U/L | [facility] | | | | | | LABORATORY | | | | | | SERVICES, | | | | | | [facility] | | [facility] + | | | | | | HEALING | | + +---------+ + + + | ALT (SGPT) | 20 | 12 - 60 U/L | [facility] | | | | | | LABORATORY | | | | | | SERVICES, | | | | | | [facility] | [facility] + | | | | | | HEALING | | + +---------+ + + + | ANION | 11 | 4 - 11 mmol/L | [facility] | | | GAP(ALB | | | LABORATORY | | | CORRECTED) | | | SERVICES, | | | | | | [facility] | | [facility] + | | | | | | HEALING | | + +---------+ + + + | ANION GAP | 12 (H) | 4 - 11 mmol/L | [facility] | | | | | | LABORATORY | | | | | | SERVICES, | | | | | | [facility] | | | [facility] + | | | | | | HEALING | | + +---------+ + + + + + | Specimen | + + | Blood - Blood | + + + + + + + | Performing | Address | City/State/Zipcode | Phone Number | | Organization | | | | + + + + + | [facility] | [address] | [place] [address] | | | [facility] | | | | | HEALTH + HEALING | | | | + + + + + documented in this encounter Visit Diagnoses + + | Diagnosis | + + | Gallbladder cancer (HCC) Malignant neoplasm of gallbladder | + + documented in this encounter"
--- OUTSIDE RECORDS SUMMARY | ~2019-06-13 | XMS | Encounter Summary ---
Demographics + + + | Address | [address] | | | [place] [address] | + + + | Home Phone | | + + + | Preferred Language | Unknown | + + + | Marital Status | | + + + | Oriental Orthodox Affiliation | Unknown | + + + | Race | Unknown | + + + | Ethnic Group | Unknown | + + + Author + + + | Author | [facility] | | | and Eduardoana | + + + | Organization | [facility] | | | and [place]ardo[place] | + + + | Address | Unknown | + + + | Phone | Unavailable | + + + Support + + + + + | Name | Relationship | Address | Phone | + + + + + | Poncho Oquendo | ECON | [address] | | | | | [facility] [place] | | | | | [address] | | + + + + + | Marta Upton | ECON | [place], [place] | | | | | [address] | | + + + + + Care Team Providers + +------+ + | Care Timber Sizer Name | Role | Phone | + +------+ + PCP | Unavailable | + +------+ + Encounter Details +--------+ + + + + | Date | Type | Department | Care Team | Description | +--------+ + + + + | 07/15/ | Hospital | [facility] | | | | 2000 | Encounter | MED CTR GENERIC OP | | | | | | CONV DEPT [address] | | | | | | [place], | | | | | | [place] [address] | | | | | | [phone] | | | +--------+ + + + [...] | | | | | [place] [address] | | | | | | [phone] | | | | | | | | +--------+---------+ + + + documented as of this encounter Visit Diagnoses Not on filedocumented in this encounter"
--- OUTSIDE RECORDS SUMMARY | ~2019-06-13 | XMS | Encounter Summary ---
Demographics + + + | Address | [address] | | | [place] [address] | + + + | Home Phone | | + + + | Preferred Language | Unknown | + + + | Marital Status | | + + + | Zoroastrianism Affiliation | Unknown | + + + | Race | Unknown | + + + | Ethnic Group | Unknown | + + + Author + + + | Author | [facility] | | | and Eduardo[place] | + + + | Organization | [facility] | | | and Eduardo[place] | + + + | Address | Unknown | + + + | Phone | Unavailable | + + + Support + + + + + | Name | Relationship | Address | Phone | + + + + + | Poncho Oquendo | ECON | [address] | | | | | [place] | | | | | [address] | | + + + + + | Marta Upton | ECON | [place] | | | | | [address] | | + + + + + Care Team Providers + +------+ + | Care Slot Operations Manager Name | Role | Phone | [...] | | MED CTR MEDICAL | Epifanio oSler MD [address] | | | | | [address] | [facility] | | | | | W [facility] | [place] [address] | | | | | [place] [address] | [phone] | | | | | [phone] | | | +--------+ + + + [...] [address] | | | | | | [facility] [address] | | | | | | [phone] | | | | | | | | +--------+---------+ + + + documented as of this encounter Visit Diagnoses Not on filedocumented in this encounter"
--- OUTSIDE RECORDS SUMMARY | ~2019-06-13 | XMS | Encounter Summary ---
Demographics + + + | Address | [address] | | | [place] [address] | + + + | Home Phone [...] Team Providers + +------+ + | Care Disabilities Services Officer Name | Role | Phone | + +------+ + | Tomasa Wagner | PCP | | + +------+ + Reason for Visit + + + | Reason | Comments | + + + | Medical Records | [facility] - OUTSIDE RECORDS 03/18/14 OV Summary | | Review | | + + + Encounter Details +--------+ + + + + | Date | Type | Department | Care Team | Description | +--------+ + + + + | 03/22/ | Abstract | [facility] | Tai Stanton, | Medical Records | | 2015 | | [place] [address] [address] | [address] | Review ([facility] - | | | | [facility] | [facility] | OUTSIDE RECORDS | | | | for Health and | [place], [place] | 03/18/14 OV Summary) | | | | [facility], [facility] 2 | [address] | | | | | [place], [place] | [phone] | | | | | [address] | | | | | | [phone] | | | +--------+ + + + [...]
--- OUTSIDE RECORDS SUMMARY | ~2019-06-13 | XMS | Encounter Summary ---
Demographics + + + | Address | [address] | | | [place] [address] | + + + | Home Phone [...] Author | [facility] | + + + | Organization | [facility] | + + + | Address | [...] Team Providers + +------+ + | Care Chemical Worker Name | Role | Phone | + +------+ + | Prudencio Isaac MD | PCP | | + +------+ + Encounter Details +--------+ + + + + | Date | Type | Department | Care Team | Description | +--------+ + + + + | 04/21/ | Telephone | [facility] | aTi Stanton, | | | 2012 | | Center at [facility] [address] | [address] | | | | | HI[address] [facility] | [facility] | | | | | for [facility] and | [place], [place] | | | | | [facility] [place] [address] | [address] | | | | | [place], [place] | [phone] | | | | | [address] | | | | | | [phone] | | | +--------+ + + + [...]
--- OUTSIDE RECORDS SUMMARY | ~2019-06-13 | XMS | Encounter Summary ---
Demographics + + + | Address | [address] | | | [place] [address] | + + + | Home Phone | | + + + | Preferred Language | Unknown | + + + | Marital Status | Single | + + + | Temple Affiliation | NON | + + + [...] Team Providers + +------+ + | Care Black Top Machine Operator Name | Role | Phone | + +------+ + | Tomasa Wagner | PCP | | + +------+ + Encounter Details +--------+ + + + + | Date | Type | Department | Care Team | Description | +--------+ + + + + | 06/20/ | MyChart | [facility] | Miguel Seymour, | RE: Do I need to | | 2014 | Encounter | [facility] | [address] | continue the Lovenox | | | | Alexis [address] | injections? | | | | [address] | [place], [place] | | | | | Alexis, [facility] floor | [address] | | | | | [place], [place] | [phone] | | | | | [address] | | | | | | [phone] | | | +--------+ + + + [...]
--- OUTSIDE RECORDS SUMMARY | ~2019-06-13 | XMS | Encounter Summary ---
Demographics + + + | Address | [address] | | | [place] [address] | + + + | Home Phone [...] [facility] | | | and Eduardoana | + + + | Organization | [facility] | | | and Eduardoana | + + + | Address | Unknown | + + + | Phone | Unavailable | + + + Support + + + + + | Name | Relationship | Address | Phone | + + + + + | Poncho Oquendo | ECON | [address] | | | | | [place] | | | | | [address] | | + + + + + | Marta Upton | ECON | [place] | | | | | [address] | | + + + + + Care Team Providers + +------+ + | Care Wood Hacker Name | Role | Phone | + +------+ + | Valeriy Carmona DO | PCP | | + +------+ + Encounter Details +--------+ + + + + | Date | Type | Department | Care Team | Description | +--------+ + + + + | 06/26/ | Orders Only | [facility] | Mracelina Johnson, | Gallbladder cancer, | | 2015 | | MED CTR CHEMO | RN | carcinoma (HCC) | | | | INFUSION [address] | | (Primary Dx) | | | | [place], | | | | | | [place] [address] | | | | | | [phone] | | | +--------+ + + + [...] | | 2019 | Visit | | [address] | | | | | | [place] [address] | | | | | | [phone] | | | | | | | | +--------+---------+ + + + documented as of this encounter Visit Diagnoses + + | Diagnosis | + + | Gallbladder cancer, 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
--- OUTSIDE RECORDS SUMMARY | ~2019-06-13 | XMS | Encounter Summary ---
Demographics + + + | Address | [address] | | | [place] [address] | + + + | Home Phone [...] Team Providers + +------+ + | Care Information Scientist Name | Role | Phone | + +------+ + PCP | Unavailable | + +------+ + Encounter Details +--------+ + + + + | Date | Type | Department | Care Team | Description | +--------+ + + + + | 04/07/ | Abstract | [facility] | Tai Stanton, | | | 2012 | | Center [place] [address] [address] | [address] | | | | | [facility] [facility] | [facility] | | | | | for Health and | [place], [place] | | | | | [facility] 2 | [address] | | | | | [place], [place] | [phone] | | | | | [address] | | | | | | [phone] | | | +--------+ + + + [...]
--- OUTSIDE RECORDS SUMMARY | ~2019-06-13 | XMS | Encounter Summary ---
Demographics + + + | Address | [address] | | | [place] [address] | + + + | Home Phone [...] | Author | [facility] | | | and Eduardoana | + + + | Organization | [facility] | | | and Eduardo[place] | + + + | Address | Unknown | + + + | Phone | Unavailable | + + + Support + + + + + | Name | Relationship | Address | Phone | + + + + + | Poncho Oquendo | ECON | [address] | | | | | [place] | | | | | [address] | | + + + + + | Marta Upton | ECON | [place] | | | | | [address] | | + + + + + Care Team Providers + +------+ + | Care Bounty Hunter Name | Role | Phone | + +------+ + | Valeriy Carmona DO | PCP | | + +------+ + Reason for Visit +--------+ + | Reason | Comments | +--------+ + | Other | | +--------+ + Encounter Details +--------+ + + + + | Date | Type | Department | Care Team | Description | +--------+ + + + + | 12/09/ | Telephone | [facility] | Reinaldo, | Other | | 2014 | | MED CTR MEDICAL | Epifanio Soler MD [address] | | | | | [address] | [facility] | | | | | [address] [facility] | [place] [address] | | | | | [place] [address] | [phone] | | | | | [phone] | | | +--------+ + + + [...] [address] | | | | | | [facility] [address] | | | | | | [phone] | | | | | | | | +--------+---------+ + + + documented as of this encounter Visit Diagnoses Not on filedocumented in this encounter"
--- OUTSIDE RECORDS SUMMARY | ~2019-06-13 | XMS | Encounter Summary ---
Demographics + + + | Address | [address] | | | [place] [address] | + + + | Home Phone | | + + + | Preferred Language | Unknown | + + + | Marital Status | Single | + + + | Sikh Affiliation | NON | + + + | Race | White | + + + | Ethnic Group | Not or | + + + Author + + + | Author | [facility] | + + + | Organization | [facility] | + + + | Address [...] Team Providers + +------+ + | Care Fuel Yard Operator Name | Role | Phone | + +------+ + | Prudencio Isaac MD | PCP | Unavailable | + +------+ + Encounter Details +--------+ + + + + | Date | Type | Department | Care Team | Description | +--------+ + + + + | 07/01/ | Documentati | Otolaryngology | Virgilio Buck MD | | | 2008 | on | Facial Plastics & | [address] | | | | | Reconstructive | Velma [place], | | | | | Services at [facility] | [place] [address] | | | | | [address] | [phone] | | | | | Mailcode: [address] | | | | | | [facility] | | | | | | and Healing, | | | | | | Building | | | | | | [place], [place] | | | | | | [address] | | | | | | [phone] | | | +--------+ + + + [...]
--- OUTSIDE RECORDS SUMMARY | ~2019-06-13 | XMS | Encounter Summary ---
Demographics + + + | Address | [address] | | | [place] [address] | + + + | Home Phone | | + + + | Preferred Language | Unknown | + + + | Marital Status | Single | + + + | Buddhist Affiliation | NON | + + + | Race | White | + + + | Ethnic Group | Not or | + + + Author + + + | Author | [facility] | + + + | Organization | [facility] | + + + | Address | [...] Team Providers + +------+ + | Care Hair Tinter Name | Role | Phone | + +------+ + | Prudencio Isaac MD | PCP | | + +------+ + Encounter Details +--------+ + + + + | Date | Type | Department | Care Team | Description | +--------+ + + + + | 04/27/ | Hospital | Cardiac | Sjh, Car Ecg Tech | | | 2012 | Encounter | Non-Invasive Testing | [address] | | | | | at [facility] | [facility] | | | | | [address] | [place] [address] | | | | | [address] | | | | | | [place], 2nd floor | | | | | | [place], [place] | | | | | | [address] | | | | | | [phone] | | | +--------+ + + + [...] + + documented in this encounter Results 12 LEAD ECG (04/27/2012 3:53 PM PDT) [...] + + + | Please click | [facility] | | on view image for the detailed interpretation from [facility] results. | CARDIOLOGY | + + + + + + + + | Performing | Address | City/State/Zipcode | Phone Number | | Organization | | | | + + + + + | [facility] | [address] | [place], [place] | | | CARDIOLOGY | [address] | [address] | | + + + + + documented in this encounter Visit Diagnoses Not on filedocumented in this encounter
--- OUTSIDE RECORDS SUMMARY | ~2019-06-13 | XMS | Encounter Summary ---
Demographics + + + | Address | [address] | | | [place] [address] | + + + | Home Phone | | + + + | Preferred Language | Unknown | + + + | Marital Status | | + + + | Mormonism Affiliation | Unknown | + + + | Race | Unknown | + + + | Ethnic Group | Unknown | + + + Author + + + | Author | [facility] | | | and [place]ardo[place] | + + + | Organization | [facility] | | | and [place]ardo[place] | + + + | Address | Unknown | + + + | Phone | Unavailable | + + + Support + + + + + | Name | Relationship | Address | Phone | + + + + + | Poncho Oquendo | ECON | [address] | | | | | [place] | | | | | [address] | | + + + + + | Marta Upton | ECON | [place] | | | | | [address] | | + + + + + Care Team Providers + +------+ + | Care Packaging Associate Name | Role | Phone | + [...] | Procedures | [address] | [place] [address] | | | | | [place] OFFICE | OBED, | Phone: | | | | | OUTPATIENT | [place] [address] | [phone] | | | | | VISIT 25 | | Fax: | | | | | MINUTES | | [phone] | +--------+--------+ + + + + Encounter Details +--------+ + + + + | Date | Type | Department | Care Team | Description | +--------+ + + + + | 11/22/ | Hospital | [facility] | Vladimir Robles, | Cholangiocarcinoma | | 2015 | Encounter | MED CTR MEDICAL | MD [address] ASH[address]I | (HCC) (Primary Dx); | | | | ONCOLOGY CLINIC [address] | [address], | Pancytopenia due to | | | | [address] | [place] [address] | antineoplastic | | | | [place] [address] | [phone] | chemotherapy (HCC) | | | | [phone] | | | +--------+ + + + [...] fr om the original. Hematology/Oncology Progress Note [facility] Pt. Name/Age/: Aura Upton 54 y.o. 1960 Med. Record Number: [id number] Date of admission: 11/22/2014 Identifying Statement: Aura Upton is a 54 y.o. female from [address] [place] [id number] with Recurrent Cholangiocarcinoma. The patient chart and medications were reviewed in detail and the patient was seen and exam ined. History of Present Illnesses, their Current Assessments and Plans: Gallbladder cancer, carcinoma Overview ACTIVE DIAGNOSES: Recurrent cholangiocarcinoma. 1. Presentation with biliary colic in March of 2012; status post cholecystectomy and hailee er biopsy by Dr. Brandon Garcia March 29, 2012, pathological specimen [id number], analyzed by Dr. Bowers of [facility] and was notable for a poorly-differentiated adenoc arcinoma of the gallbladder. Liver biopsy demonstrated mild portal inflammation. 2. On April 28, 2012, she successfully underwent an R0 resection by Dr. Tai Stanton at [facility], pathological specimen [id number] was notable for the absence of any residual carcinoma within the gallbladder bed. However, 2/8 regional lym ph nodes contained regionally metastatic disease. 3. Consultation by Dr. Elva Grey of the [facility] on May returned the recommendation for adjuvant chemoradiation therapy following [id number] as follows: Capecitabine at 750 mg/m sq [...] staging by Dr. Oziel Casillas of the [facility]. Pathological a nalysis was notable for [...] 7. Consultation with Dr. Elva Grey the [facility] in June 26 015 who recommended additional chemotherapy was cisplatin at 75 mg meter squared on day 1 an d gemcitabine 1250 mg per meter squared on day one and day 8 of acute 21 day cycle for 6-8 c ycles. A second opinion was obtained by Dr. Richie Thayer of the [facility] who returned the recommendation for [...] the recommendations of [facility] with gemcitabine at 1000 mg per meter squared on day one and day 8 wi th cisplatin 25 mg meter squared on day one and day 8 of a Q 21 day cycle beginning on July 26, 2014 complicated by grade 3 neutropenia and grade [address]ocyt[address]. 10[address] scan of the chest, abdomen and pelvis that [facility] on September 16, 2014 demonstrated no radiographic [...] time. Plan: 1. Proceed with day 1 cis-bridgeport and gemcitabine as outlined above. 2. Neutropenic [...] has been changed since signin [facility] amitriptyline (ELAVIL) 10 mg tablet (Taking) Take 10 mg by mouth nightly. Number of times this order has been changed since signin [facility] dexamethasone (DECADRON) 4 mg tablet (Taking) Take one tablet PO as directed. Number of times this order has been changed since signin [facility] docusate calcium (SURFAK) 240 mg capsule (Taking) Take 240 mg by mouth as needed. Number of times this order has been changed since signin [facility] fish oil 1,000 mg capsule (Taking) Take 1,000 mg by mouth Daily. Number of times this order has been changed since signin [facility] HYDROcodone-acetaminophen (VICODIN) 5-500 mg per tablet (Taking) Take 1 tablet by mouth e very 4 hours as needed. Number of times this order has been changed since signin [facility] MULTIPLE VITAMIN PO (Taking) Take by mouth Daily. Number of times this order has been changed since signin [facility] ondansetron (ZOFRAN ODT) 8 mg disintegrating tablet (Taking) Take 8 mg by mouth every 8 h ours as needed for Nausea. Number of times this order has been changed since signin [facility] Probiotic Product (PROBIOTIC DAILY PO) (Taking) Take by mouth Daily. Number of times this order has been changed since signin [facility] Allergy: Allergies Allergen Reactions Sulfa Antibiotics Rash [...] this chart may have been created with [employer] voice recognition software. Occasi onal wrong-word or [...] [address] | | | | | | [place] [address] | | | | | | [phone] | | | | | | | [...]
--- OUTSIDE RECORDS SUMMARY | ~2019-06-13 | XMS | Encounter Summary ---
Demographics + + + | Address | [address] | | | [place] [address] | + + + | Home Phone | | + + + | Preferred Language | Unknown | + + + | Marital Status | | + + + | Presybeterian Affiliation | Unknown | + + + | Race | Unknown | + + + | Ethnic Group | Unknown | + + + Author + + + | Author | [facility] | | | and Eduardo[place] | + + + | Organization | [facility] | | | and Eduardoana | + + + | Address | Unknown | + + + | Phone | Unavailable | + + + Support + + + + + | Name | Relationship | Address | Phone | + + + + + | Poncho Oquendo | ECON | [address] | | | | | [facility] [place] [place] [place] | | | | | [address] | | + + + + + | Marta Upton | ECON | [place] | | | | | [address] | | + + + + + Care Team Providers + +------+ + | Care Mass Spectroscopist Name | Role | Phone | + [...] + | 04/26/ | Hospital | [facility] | | Gallbladder cancer, | | 2020 | Encounter | [facility] | | carcinoma (HCC); | | | | CENTER [facility] OP | | Obstruction of left | | | | [address] | | ureter | | | | [place] | | | | | | [address] | | | | | | [phone] | | | +--------+ + + + [...] lasts more than a day, a fever [id number] (38 C), or trouble urinating. Date Last Reviewed: 02/15/201619994782-7017 [employer]. [address] [place] [address]. All righ ts reserved. This information is [...] out of the urethra Date Last Reviewed: 02/15/201619997137-2876 [employer]. [address] [place] [address], [place] [address]. All righ ts reserved. This information is [...] [address] | | | | | | [place] [address] | | | | | | [phone] | | | | | | | [...]
--- OUTSIDE RECORDS SUMMARY | ~2019-06-13 | XMS | Encounter Summary ---
Demographics + + + | Address | [address] | | | [place] [address] | + + + | Home Phone | | + + + | Preferred Language | Unknown | + + + | Marital Status | | + + + | Scientology Affiliation | Unknown | + + + | Race | Unknown | + + + | Ethnic Group | Unknown | + + + Author + + + | Author | [facility] | | | and Eduardoana | + + + | Organization | [facility] | | | and Eduardo[place] | + + + | Address | Unknown | + + + | Phone | Unavailable | + + + Support + + + + + | Name | Relationship | Address | Phone | + + + + + | Poncho Oquendo | ECON | [address] | | | | | [place] | | | | | [address] | | + + + + + | Marta Upton | ECON | [place] | | | | | [address] | | + + + + + Care Team Providers + +------+ + | Care Multimedia Teacher Name | Role | Phone | + [...] | | Oncology | Diagnoses | | Maria Luisa, | | | | | Malignant | Reinaldo, | Ángela Packer, | | | | | neoplasm of | Epifanio Soler, | PharmD [address]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 | MD [address] | | | | | (HCC) | RICARDA LINDQUIST, | EMANUEL CASTELLANOS, | | | | | Procedures | [address] | [place] [address] | | | | | [place] OFFICE | OBED, | Phone: | | | | | OUTPATIENT | [place] [address] | [phone] | | | | | VISIT 25 | | Fax: | | | | | MINUTES | | [phone] | +--------+--------+ + + + + Encounter Details +--------+ + + + + | Date | Type | Department | Care Team | Description | +--------+ + + + + | 02/02/ | Hospital | [facility] | Ángela Glass | Gallbladder cancer, | | 2017 | Encounter | [facility] | J, PharmD [address] | carcinoma (HCC) | | | | ONCOLOGY CLINIC [address] | (Primary Dx) | | | | [address] | [place] [address] | | | | | [place] [address] | [phone] | | | | | [phone] | | | +--------+ + + + [...] + + + | Blood Pressure | 114/73 | 02/02/2017 1:06 PM | | | | | PST | | + + + + + | Pulse | 65 | 02/02/2017 1:06 PM | | | | | PST | | + + + + + | Temperature | 36.9 C (98.4 F) | 02/02/2017 1:06 PM | | | | | PST | | + + + + + | Respiratory Rate | 16 | 02/02/2017 1:06 PM | | | | | PST | | + + + + + | Oxygen Saturation | 97% | 02/02/2017 1:06 PM | | | | | PST | | + + + + + | Inhaled Oxygen | - | - | | | Concentration | | | | + + + + + | Weight | 77.3 kg (170 lb 6.7 | 02/02/2017 1:06 PM | | | | oz) | PST | | + + + + + | Height | - | - | | + + + + + | Body Mass Index | 29.45 | 12/17/2014 3:06 PM | | | [...] documented as of this encounter Progress Notes Ángela Glass, PharmD - 02/02/2017 1:50 PM PSTFormatting of this note might be differ ent from the original. Clinical Oncology Pharmacy Services Progress Note [facility] Pt. Name/Age/: Aura Upton 56 y.o. 1960 CSN: [id number] Date of service: 02/02/2017 Provider: Ángela Glass PharmD Identifying Statement: Aura Upton is a 56 y.o. female from [address] [place] [address], The encounter diagnosis was Gallbladder cancer, carcinoma (HCC). The patient chart and medications were reviewed in detail and the patient was seen and exam ined. Patient was referred to Clinical Oncology Pharmacist for therapy initiation. Assessment and plan: Counseling session today covering upcoming treatment with pembrolizumab for her recurrent g allbladder cancer, previously tested for MSI. Side effects covered include most commonly fat igue, dry skin, and skin rash. Other rare but serious effects included: colitis, pneumonitis , hypophysitis, transaminitis, pancreatitis, and nephritis. Patient is well educated on her disease and is a good advocate for her own health care. All of her questions were answered t o her satisfaction, she wishes to proceed as previously outlined by Dr Najera. Of note, she had a ureteral stent placed on Tuesday, still recovering from this. 1. Go ahead with Day #1 Cycle #1 pembrolizumab 200 mg IV. 2. Follow up with Dr Najera at in [place], [place]. Subjective: The patient chart and medications were reviewed in detail and the patient was seen and exam ined. Aura Upton is a 56 y.o. female with recurrent gallbaldder cancer MSI high, here for t reatment initiation. Aura presents to the clinic today with her , Poncho, to begin checkpoint antibody therapy. 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 She is well read and has researched pembrolizumab and the role o f immunotherapy. She does have some abdominal pain, particularly since her most recent stent placement to aid with hydronephrosis. Urination symptoms unchanged since stent placement. S he denies fevers, chills, or shortness of breath. PMH: No past medical history on file. [...] family history on file. Review of Systems: Constitutional: Reports energy level had been getting better, since Tuesday has not been senait y good. Reports night sweats that occur every few weeks. Denies high fevers, shaking chills, anorexia, nausea, vomiting, weight loss. Appetite without changes. Ear, Nose, Mouth, Throat: Reports tinnitus has progressed since being on chemotherapy. Russell es odynophagia or dysphagia. Cardiovascular: Denies shortness of breath, dyspnea on exertion, chest pain, palpitations o r orthopnea. Respiratory: Denies cough, hemoptysis, or sputum production. Gastrointestinal: Reports intermittent abdominal pain- moves around abdomen and can be more severe occasionally. Reports taking stool softeners daily to prevent constipation. Denies c onstipation, diarrhea, melena, or bright red blood per rectum. Genitourinary: Reports uncomfortable pressure since Tuesday, placement of ureteral stent. St ates she is still having hematuria. Musculoskeletal: Reports joint aches in bases of thumbs and bilateral wrists, hurt most of the time. Neurologic: Reports headaches are occasional and related to stress. Denies visual changes o r numbness/tingling of the extremities. Endocrine: Reports swelling in lower left leg intermittently. Denies heat/cold intolerance. Hematologic: Reports bruising easily. Denies spontaneous bleeding. Integumentary: Denies rash, wounds or other skin concerns. Pain: Reports pressure and discomfort from recent stent placement rates at 5/10 on scale of 0-10. States that she takes pain medication as needed. Review of systems as above, otherwise negative Medications: Current Outpatient Prescriptions Medication Sig acetaminophen (TYLENOL) 500 mg tablet Take 500 mg by mouth every 4 hours as needed for Headaches. ciprofloxacin (CIPRO) 500 mg tablet take 1 tablet by mouth twice a day docusate sodium (STOOL SOFTENER) 100 mg capsule Take 100 mg by mouth 2 times daily. HYDROcodone-acetaminophen (NORCO) 10-325 mg per tablet Take 1 tablet by mouth every 6 h ours as needed for Pain. LORazepam (ATIVAN) 1 mg tablet take 1 tablet by mouth every 4 hours if needed FOR NAUSE A, ANXIETY OR RESTLESSNESS Probiotic Product (PROBIOTIC DAILY PO) Take by mouth Daily. No current facility-administered medications for this encounter. Facility-Administered Medications Ordered in Other Encounters Medication ethyl chloride spray heparin 100 units/mL flush injection 500 Units pembrolizumab (KEYTRUDA) 200 mg in sodium chloride 0.9% 50 mL infusion Allergies: Allergies Allergen Reactions Sulfa Antibiotics Rash Sulfacetamide Sodium Hives Vitals: Temp: 36.9 C (98.4 F) BP: 114/73 Pulse: 65 Resp: 16 SpO2: 97 % on Temp :Temp Av.9 C (98.4 F) Min: 36.9 C (98.4 F) Max: 36.9 C (98.4 F) No intake or output data in the 24 hours ending 02/02/17 1350 Wt. Current: Weight: 77.3 kg (170 lb 6.7 oz) Diagnostic studies: Available data and images were reviewed personally. See reports. Significant results and findings are addressed here or in the Assessment and Plan. Recent Labs Lab 02/02/17 1230 WBC 6.4 HGB 11.7 HCT 34.4 PLT 173 Recent Labs Lab 02/02/17 1230 NA 138 K 3.7 CL 103 CO2 28 BUN 17 CREA 1.47* GLU 139* CALCIUM 8.8 BILITOT 0.7 AST 25 ALT 13 ALKPHOS 118* ALBUMIN 3.6 Imaging: No results found. Electronically signed by: Ángela Glass PharmD 02/02/2017 13:50 Ricardo Harris RN - 02/02/2017 12:51 PM PSTREVIEW OF SYSTEMS Constitutional: Reports energy level had been getting better, since Tuesday has not been senait y good. Reports night sweats that occur every few weeks. Denies high fevers, shaking chills, anorexia, nausea, vomiting, weight loss. Appetite without changes. Ear, Nose, Mouth, Throat: Reports tinnitus has progressed since being on chemotherapy. Russell es odynophagia or dysphagia. Cardiovascular: Denies shortness of breath, dyspnea on exertion, chest pain, palpitations o r orthopnea. Respiratory: Denies cough, hemoptysis, or sputum production. Gastrointestinal: Reports intermittent abdominal pain- moves around abdomen and can be more severe occasionally. Reports taking stool softeners daily to prevent constipation. Denies c onstipation, diarrhea, melena, or bright red blood per rectum. Genitourinary: Reports uncomfortable pressure since Tuesday, placement of ureteral stent. St ates she is still having hematuria. Musculoskeletal: Reports joint aches in bases of thumbs and bilateral wrists, hurt most of the time. Neurologic: Reports headaches are occasional and related to stress. Denies visual changes o r numbness/tingling of the extremities. Endocrine: Reports swelling in lower left leg intermittently. Denies heat/cold intolerance. Hematologic: Reports bruising easily. Denies spontaneous bleeding. Integumentary: Denies rash, wounds or other skin concerns. Pain: Reports pressure and discomfort from recent stent placement rates at 5/10 on scale of 0-10. States that she takes pain medication as needed. Note: Here for follow up, labs and treatment. My chart: active do cumented in this encounter Plan of Treatment +--------+---------+ + + + | Date | Type | Specialty | Care Team | Description | +--------+---------+ + + + | 09/17/ | Office | Urology | Pedro Green, | | | 2019 | Visit | | DO [address]ishali [address] | | | | | | [place] [address] | | | | | | [phone] | | | | | | | | +--------+---------+ + + + documented as of this encounter Visit Diagnoses + + | Diagnosis | + + | Gallbladder cancer, 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
--- OUTSIDE RECORDS SUMMARY | ~2019-06-13 | XMS | Encounter Summary ---
Demographics + + + | Address | [address] | | | [place] [address] | + + + | Home Phone | | + + + | Preferred Language | Unknown | + + + | Marital Status | | + + + | Anabaptism Affiliation | Unknown | + + + | Race | Unknown | + + + | Ethnic Group | Unknown | + + + Author + + + | Author | [facility] | | | and [place]ardo[place] | + + + | Organization | [facility] | | | and [place]ardo[place] | + + + | Address | Unknown | + + + | Phone | Unavailable | + + + Support + + + + + | Name | Relationship | Address | Phone | + + + + + | Poncho Oquendo | ECON | [address] | | | | | [place] [facility], [place] | | | | | [address] | | + + + + + | Marta Upton | ECON | [place] | | | | | [address] | | + + + + + Care Team Providers + +------+ + | Care Lining Scrubber Name | Role | Phone | + +------+ + | No, Physician | PCP | Unavailable | + +------+ + Reason for Visit + + + | Reason | Comments | + + + | Follow-up | | + + + Encounter Details +--------+ + + + + | Date | Type | Department | Care Team | Description | +--------+ + + + + | 04/29/ | Telephone | [facility] | Pedro Green, | Follow-up | | 2019 | | UROLOGY [address] | DO [address] | | | | | [address] | [place] [address] | | | | | [place], [place] | [phone] | | | | | [address] | | | | | | [phone] | | | +--------+ + + + [...] [address] | | | | | | [place] [address] | | | | | | [phone] | | | | | | | | +--------+---------+ + + + documented as of this encounter Visit Diagnoses Not on filedocumented in this encounter"
--- OUTSIDE RECORDS SUMMARY | ~2019-06-13 | XMS | Encounter Summary ---
Demographics + + + | Address | [address] | | | [place] [address] | + + + | Home Phone [...] Team Providers + +------+ + | Care Mold Release Worker Name | Role | Phone | + +------+ + | Valeriy Carmona MD | PCP | | + +------+ + Encounter Details +--------+ + + + + | Date | Type | Department | Care Team | Description | +--------+ + + + + | 06/26/ | Telephone | [facility] | Alma Delia Betancourt, | | | 2014 | | Clinics at | [place], [place] | | | | | [facility] | [address] | | | | | for Health and | | | | | | [address] | | | | | | [place], | | | | | | [place] [address] | | | | | | [phone] | | | +--------+ + + + [...]
--- OUTSIDE RECORDS SUMMARY | ~2019-06-13 | XMS | Encounter Summary ---
Demographics + + + | Address | [address] | | | [place] [address] | + + + | Home Phone | | + + + | Preferred Language | Unknown | + + + | Marital Status | | + + + | Bahai Affiliation | Unknown | + + + | Race | Unknown | + + + | Ethnic Group | Unknown | + + + Author + + + | Author | [facility] | | | and Eduardo[place] | + + + | Organization | [facility] | | | and [place]ardo[place] | + + + | Address | Unknown | + + + | Phone | Unavailable | + + + Support + + + + + | Name | Relationship | Address | Phone | + + + + + | Poncho Oquendo | ECON | [address] | | | | | [facility] [place] [place] | | | | | [address] | | + + + + + | Marta Upton | ECON | [place] | | | | | [address] | | + + + + + Care Team Providers + +------+ + | Care Electric Motors Salesperson Name | Role | Phone | + [...] + + | 04/29/ | Telephone | [facility] | Pedro Green, | Follow-up | | 2019 | | UROLOGY [address] | DO [address] | | | | | [address] | [place] [address] | | | | | [place], [place] | [phone] | | | | | [address] | | | | | | [phone] | | | +--------+ + + + [...] [address] | | | | | | [place] [address] | | | | | | [phone] | | | | | | | | +--------+---------+ + + + documented as of this encounter Visit Diagnoses Not on filedocumented in this encounter"
--- OUTSIDE RECORDS SUMMARY | ~2019-06-13 | XMS | Encounter Summary ---
Demographics + + + | Address | [address] | | | [place] [address] | + + + | Home Phone | | + + + | Preferred Language | Unknown | + + + | Marital Status | | + + + | Taoism Affiliation | Unknown | + + + | Race | Unknown | + + + | Ethnic Group | Unknown | + + + Author + + + | Author | [facility] | | | and Eduardo[place] | + + + | Organization | [facility] | | | and [place] | + + + | Address | Unknown | + + + | Phone | Unavailable | + + + Support + + + + + | Name | Relationship | Address | Phone | + + + + + | Poncho Oquendo | ECON | [address] | | | | | [facility] [place] | | | | | [address] | | + + + + + | Marta Upton | ECON | [place], [place] | | | | | [address] | | + + + + + Care Team Providers + +------+ + | Care Independent Beauty Consultant Name | Role | Phone | + +------+ + | No, Physician | PCP | Unavailable | + +------+ + Encounter Details +--------+ + + + + | Date | Type | Department | Care Team | Description | +--------+ + + + + | 06/08/ | Orders Only | [facility] | Mathieu Langford | | | 2019 | | [facility] | MD Epifanio [address] | | | | | ONCOLOGY CLINIC [address] | | | | | [address] | [place] [address] | | | | | [place] [address] | [phone] | | | | | [phone] | | | +--------+ + + + [...] [address] | | | | | | [place] [address] | | | | | | [phone] | | | | | | | | +--------+---------+ + + + documented as of this encounter Visit Diagnoses Not on filedocumented in this encounter"
--- OUTSIDE RECORDS SUMMARY | ~2019-06-13 | XMS | Encounter Summary ---
Demographics + + + | Address | [address] | | | [place] [address] | + + + | Home Phone | | + + + | Preferred Language | Unknown | + + + | Marital Status | Single | + + + | Orthodox Affiliation | NON | + + + | Race | White | + + + | Ethnic Group | Not or | + + + Author + + + | Author | [facility] | + + + | Organization | [facility] | + + + | [...] Team Providers + +------+ + | Care Rack Carrier Name | Role | Phone | + +------+ + | Prudencio Isaac MD | PCP | Unavailable | + +------+ + Reason for Visit + + + | Reason | Comments | + + + | Follow-up encounter | | + + + Consultation (Routine) [...] | | y | Nasal | Aamir Keller, | [address] | | | | | septal | [address] | [address] | | | | | defect | [address] | [place] | | | | | Procedures | [place], [place] | [place], [place] | | | | | CONSULT TO | [address] | [address] | | | | | ENT / FACIAL | Phone: | Phone: | | | | | PLASTIC | [phone] | [phone] | | | | | SURGERY | Fax: | Fax: | | | | | | [phone] | [phone] | +--------+--------+ + + + + Encounter Details +--------+---------+ + + + | Date | Type | Department | Care Team | Description | +--------+---------+ + + + | 10/11/ | Office | Otolaryngology | Virgilio Buck MD | Postop Check | | 2008 | Visit | Facial Plastics & | [address] | (Primary Dx) | | | | Reconstructive | [address] [place], | | | | | Services at [facility] | [place] [address] | | | | | [address] | [phone] | | | | | Mailcode: [id number] | | | | | | [facility] | | | | | | and Healing, | | | | | | Building [address]th | | | | | | Floor [place], [place] | | | | | | [address] | | | | | | [phone] | | | +--------+---------+ + + + [...] documented as of this encounter Progress Notes Betty Saldana - 10/11/2008 1:49 PM PDTAddended by: BETTY SALDANA on: 10/11/2008 1:49 PM Tabatha lanza accepted: Michelle Kumar Tom, MD - 10/11/2008 12:53 PM PDTClinic: [facility] Plastic [facility] Clinic Aura Upton is a 47 y.o. female who returns for followup 3 months out from repair of s eptal perforation with AlloDerm. She is doing extremely well and is delighted with her impr ovement in breathing and stopping of daily nose bleeds and crusting. My examination confirm s satisfactory healing process, the perforation has remained closed. All questions were ans wered today. Photos obtained today. Followup arranged for as needed. Virgilio Buck MD FACS Professor Facial Plastic and Reconstructive Surgery Dept. of Otolaryngology/Head and Neck Surgery [facility] [place] tel fax email [email or web address] documented in this encounte r Plan of Treatment Not on filedocumented as of this encounter Visit Diagnoses + + | Diagnosis | + + | Postop check - Primary Follow-up examination, following unspecified surgery | + + documented in this encounter"
--- OUTSIDE RECORDS SUMMARY | ~2019-06-13 | XMS | Encounter Summary ---
Demographics + + + | Address | [address] | | | [place] [address] | + + + | Home Phone [...] | [facility] | | | and [place] | + + + | Organization | [facility] | | | and [place] | + + + | Address | Unknown | + + + | Phone | Unavailable | + + + Support + + + + + | Name | Relationship | Address | Phone | + + + + + | Poncho Oquendo | ECON | [address] | | | | | [facility], [place] | | | | | [address] | | + + + + + | Marta Upton | ECON | [place], [place] | | | | | [address] | | + + + + + Care Team Providers + +------+ + | Care Audio Visual Arts Director Name | Role | Phone | + +------+ + PCP | Unavailable | + +------+ + Encounter Details +--------+ + + + + | Date | Type | Department | Care Team | Description | +--------+ + + + + | 04/17/ | Orders Only | [facility] | Reinaldo, | Personal history of | | 2013 | | [facility] | Epifanio Soler MD [address] | malignant neoplasm | | | | [facility] [address] | of other site in | | | | [address] | [place] [address] | gastrointestinal | | | | [place] [address] | [phone] | tract (Primary Dx) | | | | [phone] | | | +--------+ + + + [...] Urology | Pedro Green, | | | 2020 | Visit | | DO [address] | | | | | | [place] [address] | | | | | | [phone] | | | | | | | | +--------+---------+ + + + documented as of this encounter Results CEA (09/25/2013 11:05 AM PDT) + +-------+ + + + | Component | Value | Ref Range | Performed | Pathologist | | | | | At | Signature | + +-------+ + + + | CEA | 0.9 | 0.0 - 10.0 | [facility] | | | | | ng/mL | [facility] | | | | | | [facility]ICAL | | | | | | CENTER - | | | | | | LABORATORY | | + +-------+ + + + + + | Specimen | + + | Blood - Vein sample | | (specimen) | + + + + + + + | Performing | Address | [facility] | Phone Number | | Organization | | | | + + + + + | [facility] | [address] | [place] | [phone] | | [facility] | | [address] | | | - LABORATORY | | | | + + + + + | [facility] | [address] | [place] | | | [facility] | | [address], [facility] | | | - LABORATORY | | | | + + + + + CA 19-9, Quant (09/25/2013 11:05 AM PDT) + + + + + + | Component | Value | Ref Range | Performed | Pathologist | | | | | At | Signature | + + + + + + | CA 19-9 | 8Comment: The Siem[employer] | 0 - 37 U/mL [...] | | | | [address], [place], | | | | | | [place] [address] | | | | + + + + + + + + | Specimen | + + | Blood specimen | | (specimen) - Vein | + + + + + + + | Performing | Address | City/State/Zipcode | Phone Number | | Organization | | | | + + + + + | [facility] | [address] | [place] [address] | [phone] | + + + + + Lactate Dehydrogenase (09/25/2013 11:05 AM PDT) + +-------+ + + + | Component | Value | Ref Range | Performed | Pathologist | | | | | At | Signature | + +-------+ + + + | LDH TOTAL | 168 | 91 - 180 U/L | [facility] | | | | | | [facility] | | | | | | MEDICAL | | | | | | CENTER - | | | | | | LABORATORY | | + +-------+ + + + + + | Specimen | + + | Blood - Vein sample | | (specimen) | + + + + + + + | Performing | Address | City/State/Zipcode | Phone Number | | Organization | | | | + + + + + | [facility] | [address] | [place] | [phone] | | [facility] | | [address] | | | - LABORATORY | | | | + + + + + | [facility] | [address] | [place] | | | [facility] | | [address], [facility] | | | - LABORATORY | | | | + + + + + Comprehensive Metabolic Panel (09/25/2013 11:05 AM PDT) + + + + + + | Component | Value | Ref Range | Performed | Pathologist | | | | | At | Signature | + + + + + + | Na | 137 | 136 - 149 | [facility] | | | | | mmol/L | [facility] | | | | | | MEDICAL | | | | | | CENTER - | | | | | | LABORATORY | | + + + + + + | K | 3.9 | 3.5 - 5.1 | [facility] | [...] + + + | Glucose | 107 | 70 - 109 mg/dL | [facility] [...] | | | | | mg/dL | [facility] | | | | | | MEDICAL | | | | | | CENTER - | | | | | | LABORATORY | | + + + + + + | eGFR if not | >60Comment: GLOMERULAR | >=60 | [facility] | | | | FILTRATION | mL/min/1.73m2 | [facility] | | | [place] | RATE,ESTIMATED | | MEDICAL | | | | mL/min/1.67v6Wrtf than | | CENTER - | | [...] Albumin | 3.9 | 3.2 - 5.0 g/dL | [facility] | | | | | | [facility] | | | | | | MEDICAL | | | | | | CENTER - | | | | | | LABORATORY | | + + + + + + | Bilirubin | 0.9 | 0.1 - 1.5 mg/dL | [facility] | | | Total | | | [facility] | | | | | | MEDICAL | | | | | | CENTER - | | | | | | LABORATORY | | + + + + + + | Total | 6.7 | 6.0 - 7.8 g/dL | [facility] | | | Protein | | | [facility] | | | | | | MEDICAL | | | | | | CENTER - | | | | | | LABORATORY | | + + + + + + | AST | 28 | 10 - 42 U/L | [facility] [...] + + + + | Alkaline | 159 (H) | 40 - 110 U/L | [facility] | | | Phosphatase | | | [facility] | | | | | | MEDICAL | | | | | | CENTER - | | | | | | LABORATORY | | + + + + + + | Globulin | 2.8 | g/dL | [facility] | | | | | | [facility] | | | | | | MEDICAL | | | | | | CENTER - | | | | | | LABORATORY | | + + + + + + | Albumin/Sakina | 1.4 | | [facility] | | | bulin Ratio | | | [facility] | | | | | | MEDICAL | | | | | | CENTER - | | | | | | LABORATORY | | + + + + + + | BUN/Creatin | 13.0 | | [facility] | | | ine Ratio | | | [facility] | | | | | | MEDICAL | | | | | | CENTER - | | | | | | LABORATORY | | + + + + + + + + | Specimen | + + | Blood - Vein sample | | (specimen) | + + + + + + + | Performing | Address | City/State/Zipcode | Phone Number | | Organization | | | | + + + + + | [facility] | [address] | [place] | [phone] | | [facility] | | [address] | | | - LABORATORY | | | | + + + + + | [facility] | [address] | [place] | | | [facility] | | [address] | | | - LABORATORY | | | | + + + + + CBC with Differential (09/25/2013 11:05 AM PDT) + +---------+ + + + | Component | Value | Ref Range | Performed | Pathologist | | | | | At | Signature | + +---------+ + + + | WBC | 5.3 | 4.0 - 11.0 K/uL | [facility] | | | | | | [facility] | | | | | | MEDICAL | | | | | | CENTER - | | | | | | LABORATORY | | + +---------+ + + + | RBC | 4.79 | 3.70 - 5.20 | [facility] | | | | | M/uL | [facility] | | | | | | [facility]ICAL | | | | | | CENTER - | | | | | | LABORATORY | | + +---------+ + + + | Hemoglobin | 13.8 | 11.5 - 16.0 | [facility] | | | | | g/dL | [facility] | | | | | | MEDICAL | | | | | | CENTER - | | | | | | LABORATORY | | + +---------+ + + + | Hematocrit | 41.6 | 34.0 - 47.0 % | [facility] | | | | | | [facility] | | | | | | [facility]ICAL | | | | | | CENTER - | | | | | | LABORATORY | | + +---------+ + + + | MCV | 86.7 | 83.0 - 101.0 fL | [facility] | | | | | | [facility] | | | | | | MEDICAL | | | | | | CENTER - | | | | | | LABORATORY | | + +---------+ + + + | MCH | 28.9 | 28.0 - 35.0 pg | [facility] | | | | | | [facility] | | | | | | MEDICAL | | | | | | CENTER - | | | | | | LABORATORY | | + +---------+ + + + | MCHC | 33.3 | 32.0 - 36.0 | [facility] | | | | | g/dL | [facility] | | | | | | MEDICAL | | | | | | CENTER - | | | | | | LABORATORY | | + +---------+ + + + | RDW-CV | 13.4 | <15.0 % | [facility] | | | | | | [facility] | | | | | | MEDICAL | | | | | | CENTER - | | | | | | LABORATORY | | + +---------+ + + + | Platelet | 223 | 140 - 440 K/uL | [facility] | | | Count | | | [facility] | | | | | | MEDICAL | | | | | | CENTER - | | | | | | LABORATORY | | + +---------+ + + + | MPV | 7.4 | fL | [facility] | | | | | | [facility] | | | | | | MEDICAL | | | | | | CENTER - | | | | | | LABORATORY | | + +---------+ + + + | % | 58.7 | 45.0 - 82.0 % | [facility] | | | Neutrophils | | | [facility] | | | | | | MEDICAL | | | | | | CENTER - | | | | | | LABORATORY | | + +---------+ + + + | % | 28.9 | 20.0 - 45.0 % | [facility] | | | Lymphocytes | | | [facility] | | | | | | MEDICAL | | | | | | CENTER - | | | | | | LABORATORY | | + +---------+ + + + | % Monocytes | 8.6 | 4.0 - 12.0 % | [facility] | | | | | | [facility] | | | | | | MEDICAL | | | | | | CENTER - | | | | | | LABORATORY | | + +---------+ + + + | % | 2.6 | 0.0 - 5.0 % | [facility] | | | Eosinophils | | | [facility] | | | | | | MEDICAL | | | | | | CENTER - | | | | | | LABORATORY | | + +---------+ + + + | % Basophils | 1.2 (H) | 0.0 - 1.0 % | [facility] | | | | | | [facility] | | | | | | MEDICAL | | | | | | CENTER - | | | | | | LABORATORY | | + +---------+ + + + | Absolute | 3.10 | 1.80 - 8.50 | [facility] | | | Neutrophils | | K/uL | [facility] | | | | | | MEDICAL | | | | | | CENTER - | | | | | | LABORATORY | | + +---------+ + + + | Absolute | 1.50 | 0.60 - 3.20 | [facility] | | | Lymphocytes | | K/uL | [facility] | | | | | | MEDICAL | | | | | | CENTER - | | | | | | LABORATORY | | + +---------+ + + + | Absolute | 0.50 | 0.00 - 1.00 | [facility] | | | Monocytes | | K/uL | [facility] | | | | | | MEDICAL | | | | | | CENTER - | | | | | | LABORATORY | | + +---------+ + + + | Absolute | 0.10 | 0.00 - 0.40 | [facility] | | | Eosinophils | | K/uL | [facility] | | | | | | MEDICAL | | | | | | CENTER - | | | | | | LABORATORY | | + +---------+ + + + | Absolute | 0.10 | 0.00 - 0.10 | [facility] | | | Basophils | | K/uL | [facility] | | | | | | MEDICAL | | | | | | CENTER - | | | | | | LABORATORY | | + +---------+ + + + + + | Specimen | + + | Blood - Vein sample | | (specimen) | + + + + + + + | Performing | Address | City/State/Zipcode | Phone Number | | Organization | | | | + + + + + | [facility] | [address] | [place], [place] | [phone] | | [facility] | | [address] | | | - LABORATORY | | | | + + + + + | [facility] | 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
--- OUTSIDE RECORDS SUMMARY | ~2019-06-13 | XMS | Encounter Summary ---
Demographics + + + | Address | [address] | | | [place] [address] | + + + | Home Phone [...] + + + | Author | [facility] | + + + | Organization | [facility] | + + + | [...] Team Providers + +------+ + | Care Cctv Technician Name | Role | Phone | + +------+ + | Tomasa Wagner | PCP | | + +------+ + Encounter Details +--------+ + + + + | Date | Type | Department | Care Team | Description | +--------+ + + + + | 05/24/ | MyChart | [facility] | Miguel Seymour, | RE: Share Info with | | 2014 | Encounter | [facility] | [address] | Dr. Tai Stanton | | | | [place] [address] | [facility] | | | | | [address] | [place], [place] | | | | | [place], [facility] floor | [address] | | | | | [place], [place] | [phone] | | | | | [address] | | | | | | [phone] | | | +--------+ + + + [...]
--- OUTSIDE RECORDS SUMMARY | ~2019-06-13 | XMS | Encounter Summary ---
Demographics + + + | Address | [address] | | | [place] [address] | + + + | Home Phone | | + + + | Preferred Language | Unknown | + + + | Marital Status | | + + + | Confucianist Affiliation | Unknown | + + + | Race | Unknown | + + + | Ethnic Group | Unknown | + + + Author + + + | Author | [facility] | | | and [place] | + + + | Organization | [facility] | | | and [place] | + + + | Address | Unknown | + + + | Phone | Unavailable | + + + Support + + + + + | Name | Relationship | Address | Phone | + + + + + | Poncho Oquendo | ECON | [address] | | | | | [facility] [place] | | | | | [address] | | + + + + + | Marta Upton | ECON | [place], [place] | | | | | [address] | | + + + + + Care Team Providers + +------+ + | Care Auto Body Repair Estimator Name | Role | Phone | + +------+ + PCP | Unavailable | + +------+ + Reason for Visit +--------+ + | Reason | Comments | +--------+ + | Other | | +--------+ + Encounter Details +--------+ + + + + | Date | Type | Department | Care Team | Description | +--------+ + + + + | 05/01/ | Telephone | [facility] | Reinaldo, | Other | | 2013 | | [facility] | Epifanio Soler MD [address] | | | | | [facility] [address] | [address] | | | | | [address] | [place] [address] | | | | | [place] [address] | [phone] | | | | | [phone] | | | +--------+ + + + [...] | 2020 | Visit | | [address] | | | | | | [place] [address] | | | | | | [phone] | | | | | | | | +--------+---------+ + + + documented as of this encounter Visit Diagnoses Not on filedocumented in this encounter"
--- OUTSIDE RECORDS SUMMARY | ~2019-06-13 | XMS | Encounter Summary ---
Demographics + + + | Address | [address] | | | [place] [address] | + + + | Home Phone | | + + + | Preferred Language | Unknown | + + + | Marital Status | Single | + + + | Sabianist Affiliation | NON | + + + [...] Providers + +------+ + | Care Office Machine Installer Name | Role | Phone | + +------+ + PCP | Unavailable | + +------+ + Reason for Visit + + + | Reason | Comments | + + + | Follow-up visit | | + + + Office Visit - E/M Services (Routine) +--------+--------+ + + + + | Status | Reason | Specialty | Diagnoses / | Referred By | Referred To | | | | | Procedures | Contact | Contact | +--------+--------+ + + + + | Closed | | Otolaryngolog | | Non-[facility] | Ent Sinus | | | | y | | Epic Dept | [facility] [address] | | | | | | | [address] | | | | | | | Mailcode: | | | | | | | [facility] | | | | | | [facility] | | | | | | | and Healing, | | | | | | | [address], | | | | | | | 5th Floor | | | | | | | [place], [place] | | | | | | | [address] | | | | | | | Phone: | | | | | | | [phone] | | | | | | | Fax: | | | | | | | [phone] | +--------+--------+ + + + + Encounter Details +--------+---------+ + + + | Date | Type | Department | Care Team | Description | +--------+---------+ + + + | 03/07/ | Office | [facility] | Aamir Lau, | Chronic Ethmoidal | | 2008 | Visit | [facility] | MD [address] | Sinusitis | | | | [address] | [place], [place] | | | | | Mailcode: KAREEN | [address] | | | | | [facility] | [phone] | | | | | and Healing, | | | | | | Building | | | | | | Floor [place], [place] | | | | | | [address] | | | | | | [phone] | | | +--------+---------+ + + + [...] + documented as of this encounter Progress Aamir Martinez MD - 03/07/2008 4:31 PM GRETAI personally interviewed the patient, cooper ashley the pertinent parts of the physical examination and procedure and personally formulated the plan. I have reviewed, entered my findings, and agree with the above documentation. Aamir Lau M.D., M.P.H., F.A.C.S. Director, [facility] Professor and Chief, Rhinology and Sinus Surgery Department of Otolaryngology/Head and Neck Surgery Faustina Olvera MD - 03/07/2008 3:51 PM PST HPI: Aura [place] is a 47 y.o. female who presents to the [facility] for foll ow up of S/P Sinus Surgery (septoplasty) with Dr. Benedict in [place]. Current symptoms inc lude nasal congestion. Symptoms began many years ago. Symptom severity is mild. Improveme nt occurred with Bactroban ointment and nasogel ointment daily, she has noted about 50% impr ovement in her symptoms from this regimen. She had a sinus infecton at the end of 2007 and needed an antibiotic. Current outpatient prescriptions Medication Sig CELEBREX OR None Entered mupirocin (BACTROBAN NASAL) 2 % Nasal Ointment apply one-half of the ointment from the tube into one nostril and theother half into the other nostril by topical route 1 times per day morning PHYSICAL EXAM: Ear, nose, and throat exam reveals a pleasant, well-developed, well-nourish ed patient, in no apparent distress. Voice quality is within normal limits. External audit ory canals and tympanic membranes appear normal. Anterior rhinoscopy reveals mucosal edema and septal perforation which is clean with minimal crusting. Oral cavity and oropharynx rev eals healthy mucosa. The pharyngeal mucosa reveals no lesions. Lips and tongue are within normal limits. Neck reveals no mass, adenopathy, or thyromegaly. Salivary glands are normal to palpation. PROCEDURE: Diagnostic Nasal Endoscopy Anesthesia: Lidocaine 4% topical anesthetic Description of Procedure: A rigid endoscope was utilized to evaluate the sinonasal cavities , mucosa, sinus ostia and turbinates. Overall, signs of mucosal inflammation are noted, no mucostasis, no polyposis, stable septal perforation approximately 1 cm in width and anterior ly-based perforation. ASSESSMENT: CRS; Septal perforation--better hygiene at this stage. We've discussed issues and options today. The risks, benefits and alternatives were discus sed and questions answered. The patient has elected to proceed with continue current medica tions and return for follow up as needed. documented in this e ncounter Plan of Treatment + + +--------+ + + | Name | Type | Priori | Associated Diagnoses | Order Schedule | | | | ty | | | + + +--------+ + + | [place] NASAL | Procedures | Routin | Chronic Ethmoidal | Ordered: 03/07/2008 | | ENDOSCOPY,DX | | e | Sinusitis | | + + +--------+ + + documented as of this encounter Visit Diagnoses + + | Diagnosis | + + | Chronic ethmoidal sinusitis | + + documented in this encounter"
--- OUTSIDE RECORDS SUMMARY | ~2019-06-13 | XMS | Encounter Summary ---
Demographics + + + | Address | [address] | | | [place] [address] | + + + | Home Phone [...] + + + | Author | [facility] | + + + | Organization | [facility] | + + + | [...] Providers + +------+ + | Care Computer Sciences Professor Name | Role | Phone | + +------+ + | Prudencio Isaac MD | PCP | | + +------+ + Reason for Referral PROC - Inpatient Surgery (Routine) +--------+--------+ + + + + | Status | Reason | Specialty | Diagnoses / | Referred By | Referred To | | | | | Procedures | Contact | Contact | +--------+--------+ + + + + | Closed | | Surgery | Diagnoses | Chika, | Trista, | | | | | Gallbladder | MD Mackenzie | MD Tai | | | | | cancer | [address] | [address] [employer] [address] [employer] | | | | | (FORMERLY [facility]) | [facility] | [facility] | | | | | Procedures | Rd | Rd [place], | | | | | REQUEST TO | [place], [place] | [place] | | | | | SURGERY | [address] | [address] | | | | | HIGH PRESSURE FIRER | Phone: | Phone: | | | | | [place] RESEC | [phone] | [phone] | | | | | LIVER,PART | Fax: | Fax: | | | | | LOBECTOMY | [phone] | [phone] | | | | | OR REMOVE | | | | | | | ABD LYMPH | | | | | | | NODES RAD | | | | | | | REGNL OR | | | | | | | ANAST | | | | | | | EXTRAHEP | | | | | | | DUCT TO GI | | | | | | | TRACT | | | +--------+--------+ + + + + Diagnostic Testing (Urgent) +--------+--------+ + + + + | Status | Reason | Specialty | Diagnoses / | Referred By | Referred To | | | | | Procedures | Contact | Contact | +--------+--------+ + + + + | Closed | | Radiology | Diagnoses | Chika, | Rad Ct Scan | | | | | Gallbladder | MD Mackenzie | s [address] | | | | | cancer | [address] | [address] | | | | | (HCC) | Surendra Carreon | Neal HIDALGO | | | | | Procedures | Rd | Hospital, | | | | | CT CHEST, | [place], [place] | 10th Floor | | | | | ABDOMEN & | [address] | [place], [place] | | | | | PELVIS W IV | Phone: | [phone] | | | | | CONTRAST | [phone] | Phone: | | | | | [address], [address] | Fax: | [phone] | | | | | | [phone] | Fax: | | | | | | | [phone] | +--------+--------+ + + + + Reason for Visit + + + | Reason | Comments | + + + | New patient | | | consultation | | + + + Consultation (Urgent) +--------+--------+ + + + + | Status | Reason | Specialty | Diagnoses / | Referred By | Referred To | | | | | Procedures | Contact | Contact | +--------+--------+ + + + + | Closed | | Surgery | Diagnoses | Radha, | Trista, | | | | | Gallbladder | Brandon Keller MD | MD Tai | | | | | cancer | [facility] | [address] | | | | | (HCC) | SURGICAL | [facility]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 | [address] | [address] [place], | | | | | ca | [address] | [place] | | | | | | AVE | [address] | | | | | | [place], | Phone: | | | | | | [place] [address] | [phone] | | | | | | Phone: | Fax: | | | | | | [phone] | [phone] | | | | | | Fax: | | | | | | | [phone] | | +--------+--------+ + + + + Encounter Details +--------+---------+ + + + | Date | Type | Department | Care Team | Description | +--------+---------+ + + + | 04/12/ | Office | Digestive Health | Tai Stanton, | Gallbladder cancer | | 2012 | Visit | Center at [facility] [address] | [address] | (HCC) (Primary Dx) | | | | [address] | [facility] | | | | | for [facility] and | [place], [place] | | | | | [facility] [address] | [address] | | | | | [place], [place] | [phone] | | | | | [address] | | | | | | [phone] | | | +--------+---------+ + + + [...] + + + | Blood Pressure | 116/67 | 04/12/2012 10:38 AM | | | | | PST | | + + + + + | Pulse | 80 | 04/12/2012 10:38 AM | | | | | PST | | + + + + + | Temperature | 36.9 C (98.5 F) | 04/12/2012 10:38 AM | | | | | PST | | + + + + + | Respiratory Rate | 16 | 04/12/2012 10:38 AM | | | | | PST | | + + + + + | Oxygen Saturation | - | - | | + + + + + | Inhaled Oxygen | - | - | | | Concentration | | | | + + + + + | Weight | 79.4 kg (175 lb) | 04/12/2012 10:38 AM | | | | | PST | | + + + + + | Height | 162.6 cm (5' 4") | 04/12/2012 10:38 AM | | | | | PST | | + + + + + | Body Mass Index | 30.04 | 04/12/2012 10:38 AM | | | | | PST | | + + + + + documented in this encounter Patient Instructions Patient Instructions Amy Dinh RN - 04/12/2012 5:30 PM PSTPATIENT SURGERY INFORMATION [facility] General Surgery Office Toll-free: [facility] 8394 Surgery Date: April 28, 2012 Procedure: Segment 4/5 wedge liver resection, portal lymphadenectomy, possible bile duct ex cision and reconstruction Surgeon Name: Tai Stanton DIRECTIONS FOR SURGERY DIET Nothing to eat or drink after midnight on the night prior to surgery. Your doctor will ins truct you on what medications to take the morning of surgery. Please note: Some surgeries may require additional dietary restrictions or a bowel preparation. Your snyder rgical team will give you additional printed instructions should these be necessary. MEDICATIONS Unless otherwise directed by your provider, do not take any Aspirin, vitamin E or non-stero idal anti-inflammatory (NSAIDs i.e. Advil, Aleve, Ibuprofen) or herbal supplements seven day s prior to your surgery. These drugs may interfere with normal blood clotting and may cause excessive bleeding and bruising during or after the surgery. Please see the list below, [facility] has a list of products that contain Aspirin, Ibuprofen, or Vitamin E If you are taking Coumadin (warfarin), Plavix or any other blood thinners please let your s urgical team know as medication changes will be necessary. If you need a pain medication for general purposes, use Tylenol as directed. If you are in doubt about any medications that you are taking, please contact our office. PRE-OP BATHING/SHOWERING - HIBICLENS (Chlorhexidine Gluconate) Bath or shower the evening before and the morning of your surgery Use the bottle of Hibiclense soap for the evening cleansing and the bottle in the mor rickie Wash from your neck to your toes. BE CAREFUL NOT TO WASH YOUR FACE OR HAIR WITH THIS SOLUT ION After your shower or bath do not apply lotions, powders, or deoderant SMOKING You should not smoke for four weeks prior to the procedure and two weeks after the procedur e. If you are a smoker, please speak with your provider. Smoking can significantly affect the outcome of your procedure. Smoking near the time of snyder rgery causes a more acute narrowing of the blood vessels, which may lead to decreased blood flow to the tissue, poor healing, bad scars, or actual loss of tissue. WHEN TO ARRIVE On the day prior to surgery you will be notified of your check-in time by the Surgery Depar tment. They will call you between 3-7 pm. If you do not hear from anyone by 7 pm please call [phone]. PARKING Parking for patients is available underneath the [facility] building. Parking is also available in the [facility] Parking structure located across from the emergency depart ment; patient parking available on level 1 and 3. Metered parking is available on the [facility]. CHECKING IN FOR SURGERY Hospital Admission (in-patient): Admitting Desk 9th floor of [facility] TRANSPORTATION Day Surgery: If you have had any sedation, you cannot drive. In addition, you must have someone to john t you and stay with you overnight the day of your procedure. Hospital Admission: You will require transportation home on the day of discharge. Pain medications and physica l activity restrictions may limit your ability to drive safely. CANCELLING YOUR PROCEDURE Please notify the general surgery office at [phone] as soon as possible should you nee d to cancel or change your surgery date. We will attempt to reschedule your procedure in a timely manner however due to a limited amount of operating room time a waiting list is not u ncommon. ILLNESS Please call our office with any signs of illness such as cold, flu, infection, fever, or s kin rash/infection anytime prior to your surgery. PRODUCTS CONTAINING ASPIRIN [place], Anacin, Anexsia with Codeine, Andynos, Aspirin, Aspirin suppositories, Ascrip tin, Aspergum, Axotal, B-A-C, Baby Aspirin, Mahad, BC Powder, Bexophene, Buffaprin, Bufferin , Buffinol, Cama-Arthritis Strength, Congespirin, [place], Coricidin, Damason, Darvon, Dristan, Elen-Gesic, Digel, Dolprin #3 Tablets, Donatab, Doxaphene, Duragesic, Easprin, Ecotrin, Emag rin Forte, Emiprin, Emprazil, Equagesic, Equazine M, Excedrin, Fiogesic, Fiorgen PH, Fiorice t, Fiorinal, 4-Way Cold Tablet Gemnisyn, Indocin, Liquprin, Lortab ASA, Magnaprin, Marnal, Meprobamate, Midol, Momentum, N orgesic, [place], Orphengesic, Pabalate, P-A-C, Percodan, Presalin, Robaxasil, Roxiprin, Cruz eto, Salocol SK-65 Compound, Sine-Aid, Sine-Off,, Jones, Supac, Talwin Compound, Trigesic, Tolectin , Traiminicin, Vanquish, ZORprin, Zomax PRODUCTS CONTAINING IBUPROFEN Advil, Aleve, Haltran, Medipren, Midol, Motrin, Naproxyn, Nuprin, Rufen OTHER PRODUCTS WHICH MAY PROMOTE BLEEDING Vitamin E, Gingko Biloba, Marine Fatty Acids, [place]-3 Fish Oil SupplementsElectronically si gned by Amy Dinh RN at 04/12/2012 5:31 PM PST documented in this encounter Progress Notes Tai Stanton MD - 04/18/2012 11:09 AM PSTI saw and evaluated the patient. I agree with the findings and the plan of care as documented in the resident s note. Tai Stanton M.D. [facility] [employer] ([facility]) Professor and Vice-Brim And Crown Presser of Surgery [facility] for Pancreatic Disease Research Pancreatic/ HepatoBiliary and Foregut Working Groups Mail Code [id number] [address] [place], [place]. [address] email: [email or web address] Mackenzie Troy MD - 04/12/2012 6:05 PM PST ID: Aura Upton CC: Referral for treatment of gall-bladder cancer found post lap analy HPI: Mrs Upton is a 51yo woman w/ h/o chronic back pain who is being referred by her georgina geon at [facility] for incidental finding gallbladder mass during cholecystectomy on 03/29/12. Mrs Upton was in her usual state health when around the end February she began to feel a generalized malaise without fevers or other associated symptoms. On 03/18/12 she ex perienced progressive increase in fatigue with notable nausea and pruritis without abdominal pain, jaundice, fevers/chills. Her symptoms progressed and on 03/21/12 she sought care at an outside ED and an abdominal U/S found 3 stones in her gallbladder. She subsequently had a la paroscopic Cholecystectomy performed at [facility] which confirmed 3 gallstones an d an intramural mass. 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 Patient s pruritis resolved almost immediately after the proc edure. The patient endorses a 10lb weight loss but attributes it to decreased food intake/poor anita etite. At time of interview she denies nausea, fevers/chills, abdominal pain, changes in uri nary/stool habits, jaundice, pruritis. She is very concerned and shocked about her diagnosis , and wishes to undergo any standard + aggressive therapy for her cholecystic cancer. Medications: Stopped all medications recently, previously on HRT for perimenopausal symptoms. PMH: #Benign Breast Cysts / Fibrocystic changes #Chronic back pain PSH: Laparoscopic Cholecystectomy 03/29/12 Perforated deviated septum repair 07/04/08 Bilateral Tubal Ligation 2002 C/S 1998 FH: denies FHx of GI cancers Father DM, CAD SH: [place] , Denies tobacco use, very brief period of historical use Infrequent alcohol use 1-2/month ROS: +frequent diffuse Headaches extending back 5+ years. Otherwise 10 point ROS was negati ve. VS: BP 116/67 Pulse 80 Resp 16 Temp 36.9 C ( 98.5 F) Temp src Oral SpO2 Weight 79.379 kg (175 l b) Height 1.626 m (5' 4") BMI: 30.04 kg/m2 P/E: GEN: mildly anxious, NAD CV: s1,s2, rrr, no m/r/g LUNG: CTAB ABD: BS+, ND, soft, minimal tenderness on palpation RUQ, no HSM. EXT: WWP, no edema Labs/Imaging/Studies: Ref. Range 04/12/2012 14:04 SODIUM, PLASMA (LAB) Latest Range: 134-143 mmol/L 139 POTASSIUM, PLASMA (LAB) Latest Range: 3.4-5.0 mmol/L 5.4 (H) CHLORIDE, PLASMA (LAB) Latest Range: 97-108 mmol/L 99 TOTAL CO2, PLASMA (LAB) Latest Range: 22-29 mmol/L 28 ANION GAP Latest Range: 4-11 mmol/L 12 (H) ANION GAP(ALB CORRECTED) Latest Range: 4-11 mmol/L 11 BUN, PLASMA (LAB) Latest Range: 6-20 mg/dL 10 CREATININE PLASMA (LAB) Latest Range: 0.60-1.10 mg/dL 0.70 EGFR - UKRAINIAN No range found >60 EGFR NON -UKRAINIAN No range found >60 GLUCOSE, PLASMA (LAB) Latest Range: 60-99 mg/dL 100 (H) CALCIUM, PLASMA (LAB) Latest Range: 8.6-10.2 mg/dL 8.8 AST(SGOT) Latest Range: 15-41 U/L 37 ALT (SGPT) Latest Range: 12-60 U/L 20 ALK PHOS Latest Range: 42-98 U/L 118 (H) BILIRUBIN TOTAL Latest Range: 0.3-1.2 mg/dL 0.9 TOTAL PROTEIN, PLASMA (LAB) Latest Range: 6.1-7.9 g/dL 7.3 ALBUMIN, PLASMA (LAB) Latest Range: 3.5-4.7 g/dL 4.1 Results for AURA UPTON ( ) as of 04/12/2012 17:14 Ref. Range 04/12/2012 14:04 WHITE CELL COUNT Latest Range: 4.4-11.0 K/cu mm 5.3 RED CELL COUNT Latest Range: 4.00-5.20 M/cu mm 4.89 HEMOGLOBIN Latest Range: 12.0-16.0 g/dL 14.4 HEMATOCRIT Latest Range: 36.0-46.0 % 42.3 MCV Latest Range: 80.0-96.0 fL 86.5 MCHC Latest Range: 33.4-35.5 g/dL 34.2 RDW Latest Range: 11.5-15.0 % 12.6 PLATELET COUNT Latest Range: 150-400 K/cu mm 297 INR Latest Range: 0.90-1.[address] Chest/Abd/Pelvis w/con 04/12/12: FINDINGS: CHEST: Heart is normal in size. There is no pericardial effusion. Imaged portions of the thyroid are normal. There is no axillary, mediastinal or hilar lymphadenopathy. There is a small fat containing left posterior Bochdalek hernia. The lungs are clear. No pleural effusion. ABDOMEN: Gallbladder surgically absent. Plaque-like mixed attenuation fluid in gallbladder fossa abuts the liver, likely representing a combination of postoperative serous fluid, blood products, and possibly granulation tissue. There is no evidence of soft tissue extension into the liver. There is mild postoperative stranding in the gall bladder fossa fat. Liver is otherwise unremarkable. No intrahepatic or extrahepatic dilation is present. No abnormal estevan hepatis or retroperitoneal lymph node is evident. Adrenal glands, kidneys, spleen, stomach, small bowel and small bowel mesentery are unremarkable. PELVIS: Urinary bladder uterus, ovaries, rectum and colon are unremarkable except for extensive sigmoid and scattered left noninflamed colonic diverticula. Appendix is normal. No free intraperitoneal fluid or gas. The no fracture, aggressive osseous lesion or suspicious lymph node is present in the chest, abdomen or pelvis. IMPRESSION: No evidence of residual or metastatic disease following cholecystectomy. A/P: 51yo female w/ incidental finding of T2 gallbladder adenocarcinoma on recent laparosco pic Cholecystectomy for acute cholecystitis. Patient will need extended Cholecystectomy for surgical staging and treatment. Assuming no sallie or hepatic invasion, a T2N0 / stage IB gal lbladder carcinoma carries a good prognosis of 70-90% (per AJCC). - Scheduled patient on 04/28/12 for segment 4b/5 liver wedge resection with portal lymphaden ectomy and possible hepaticojejunostomy for staging and treatment of gallbladder carcinoma; frozen section intra-op to assess sallie and margin positivity. - Hyperkalemia: Repeat electrolytes outpatient. Mackenzie Farr MD Chief Resident Department of Surgery [facility] documented in this en counter Plan of Treatment + +------+--------+ + + | Name | Type | Priori | Associated Diagnoses | Order Schedule | | | | ty | | | + +------+--------+ + + | 12 LEAD ECG | ECG | Routin | Gallbladder cancer | Ordered: 04/12/2012 | | | | e | (HCC) | | + +------+--------+ + + documented as of this encounter Procedures + +--------+ + + + | Procedure Name | Priori | Date/Time | Associated Diagnosis | Comments | | | ty | | | | + +--------+ + + + | PROCEDURE NOTE | Routin | 03/20/2015 | | Results for this | | | e | 11:27 PM | | procedure are in the | | | | PST | | results section. | + +--------+ + + + documented in this encounter Results PROCEDURE NOTE (03/20/2015 11:27 PM PST) + + | Transcriptions | + + | Other, Faculty - 04/13/2012 4:32 PM PST | + + CT CHEST, ABDOMEN & PELVIS W IV CONTRAST (04/12/2012 2:34 PM PST) + + + + + + | Component | Value | Ref Range | Performed | Pathologist | | | | | At | Signature | + + + + + + | CT CHEST, | STUDY: CT CHEST, ABDOMEN | | | | | ABDOMEN & | & PELVIS W CONTRAST | | | | | PELVIS W | 04/12/12 14:34:00 | | | | | CONTRAST | INDICATION: Evaluate for | | | | | | metastatic bladder | | | | | | cancer. TECHNIQUE: CT of | | | | | | the chest, abdomen and | | | | | | pelvis was | | | | | | performedfollowing 150 | | | | | | mL of intravenous | | | | | | Omnipaque. COMPARISON: | | | | | | None. FINDINGS: | | | | | | CHEST:Heart is normal in | | | | | | size. There is no | | | | | | pericardial effusion. | | | | | | Imagedportions of the | | | | | | thyroid are normal. | | | | | | There is no | | | | | | axillary,mediastinal or | | | | | | hilar lymphadenopathy. | | | | | | There is a small | | | | | | fatcontaining left | | | | | | posterior Bochdalek | | | | | | hernia. The lungs are | | | | | | clear. Nopleural | | | | | | effusion. | | | | | | ABDOMEN:Gallbladder | | | | | | surgically absent. | | | | | | Plaque-like mixed | | | | | | attenuation fluidin |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 fossa abuts | | | | | | the liver, likely | | | | | | representing | | | | | | acombination of | | | | | | postoperative serous | | | | | | fluid, blood products, | | | | | | andpossibly granulation | | | | | | tissue. There is no | | | | | | evidence of soft | | | | | | tissueextension into the | | | | | | liver. There is mild | | | | | | postoperative stranding | | | | | | inthe gall bladder fossa | | | | | | fat. Liver is | | | | | | otherwise unremarkable. | | | | | | Nointrahepatic or | | | | | | extrahepatic dilation is | | | | | | present. No abnormal | | | | | | portahepatis or | | | | | | retroperitoneal lymph | | | | | | node is evident. Adrenal | | | | | | glands,kidneys, spleen, | | | | | | stomach, small bowel | | | | | | and small bowel | | | | | | mesentery | | | | | | areunremarkable. | | | | | | PELVIS:Urinary bladder | | | | | | uterus, ovaries, rectum | | | | | | and colon are | | | | | | unremarkableexcept for | | | | | | extensive sigmoid and | | | | | | scattered left | | | | | | noninflamed | | | | | | colonicdiverticula. | | | | | | Appendix is normal. | | | | | | No free | | | | | | intraperitoneal fluid | | | | | | orgas. The no | | | | | | fracture, aggressive | | | | | | osseous lesion or | | | | | | suspicious lymphnode is | | | | | | present in the chest, | | | | | | abdomen or pelvis. | | | | | | IMPRESSION: No evidence | | | | | | of residual or | | | | | | metastatic disease | | | | | | followingcholecystectomy | | | | | | . Attending | | | | | | Radiologists: Kelsey | | | | | | Maycol MorejonAuthor: Michael | | | | | | Benedicto Gallo M.D. I | | | | | | have personally viewed | | | | | | this procedure/exam, | | | | | | reviewed this report,and | | | | | | made changes to it | | | | | | where appropriate. | | | | | | Final/Electronically | | | | | | signed / Kelsey Dobos | | | | | | 04/12/2012 15:58 PM | | | | | | Pending final approval | | | | | | / Michael Diane | | | | | | Cleo 04/12/2012 | | | | | | 15:49 PM Preliminary / | | | | | | Michael Gallo | | | | | | 04/12/2012 14:44 PM | | | | + + + + + + + + | Specimen | + + | | + + + +---------+ + + | Performing | Address | City/State/Zipcode | Phone Number | | Organization | | | | + +---------+ + + | [facility] DEPARTMENT OF | | | | | RADIOLOGY | | | | + +---------+ + + [employer], SERUM (04/12/2012 2:04 [...] by | | | | | | [address] | | | | | | [address], [facility], [place] | | | | | | [address] | | | | | | [email or web address]. | | | | | | Lala deras, | | | | | | Mary LI. Director | | | | + + + + + + + + | Specimen | + + | Blood - Blood | + + + + + + + | Performing | Address | City/State/Zipcode | Phone Number | | Organization | | | | + + + + + | [facility] | [address] | [place], [place] | | | [facility] | | [address] | | + + + + + [...] [place] | | | | | | [facility],[place] [address] | | | | | | [phone]. | | | | | | Lala deras, | | | | | | Mary LI. Director | | | | + + + + + + + + | Specimen | + + | Blood - Blood | + + + + + + + | Performing | Address | City/State/Zipcode | Phone Number | | Organization | | | | + + + + + | [facility] | [address] | [place], [place] | | | [facility] | | [address] | | + + + + + [...] + | [facility] | [address] | [place] [address] | | | GAVIN, SAM | NEAL [...] | | | LABORATORY | | | UKRAINIAN | | | SERVICES, | | | [...] + | [facility] | [address] | [place] [address] | | | SERVICES, CENTER FOR | | | | | HE[facility] + HEALING | | | | + + + + + documented in this encounter Visit Diagnoses + + | Diagnosis | + + | Gallbladder cancer (HCC) - Primary Malignant neoplasm of gallbladder | + + documented in this encounter
--- OUTSIDE RECORDS SUMMARY | ~2019-06-13 | XMS | Encounter Summary ---
Demographics + + + | Address | [address] | | | [place] [address] | + + + | Home Phone | | + + + | Preferred Language | Unknown | + + + | Marital Status | Single | + + + | Lutheran Affiliation | NON | + + + | Race | White | + + + | Ethnic Group | Not or | + + + Author + + + | Author | [facility] | + + + | Organization | [facility] | + + + | Address [...] Providers + +------+ + | Care Plant Clerk Name | Role | Phone | + +------+ + | Tomasa Wagner | PCP | | + +------+ + Encounter Details +--------+ + + + + | Date | Type | Department | Care Team | Description | +--------+ + + + + | 06/09/ | Abstract | Digestive Health | Tai Stanton, | | | 2012 | | Center at [facility] [address] | [address] | | | | | [address] [facility] | [facility] | | | | | for Health and | [place], [place] | | | | | [facility] [address] [place] [address] | [address] | | | | | [place], [place] | [phone] | | | | | [address] | | | | | | [phone] | | | +--------+ + + + [...]
--- OUTSIDE RECORDS SUMMARY | ~2019-06-13 | XMS | Encounter Summary ---
Demographics + + + | Address | [address] | | | [place] [address] | + + + | Home Phone | | + + + | Preferred Language | Unknown | + + + | Marital Status | | + + + | Taoist Affiliation | Unknown | + + + | Race | Unknown | + + + | Ethnic Group | Unknown | + + + Author + + + | Author | [facility] | | | and [place]ardo[place] | + + + | Organization | [facility] | | | and [place] | + + + | Address | Unknown | + + + | Phone | Unavailable | + + + Support + + + + + | Name | Relationship | Address | Phone | + + + + + | Poncho Oquendo | ECON | [address] | | | | | [facility], [place] | | | | | [address] | | + + + + + | Marta Upton | ECON | [place], [place] | | | | | [address] | | + + + + + Care Team Providers + +------+ + | Care Tire Service Technician Name | Role | Phone | [...] | | [address] | [address] | | | | | [place], [place] | [place] [address] | | | | | [address] | [phone] | | | | | [phone] | | | +--------+ + + + [...] | | | | | [place] [address] | | | | | | [phone] | | | | | | | | +--------+---------+ + + + documented as of this encounter Visit Diagnoses Not on filedocumented in this encounter
--- OUTSIDE RECORDS SUMMARY | ~2019-06-13 | XMS | Encounter Summary ---
Demographics + + + | Address | [address] | | | [place] [address] | + + + | Home Phone | | + + + | Preferred Language | Unknown | + + + | Marital Status | | + + + | Denominational Affiliation | Unknown | + + + | Race | Unknown | + + + | Ethnic Group | Unknown | + + + Author + + + | Author | [facility] | | | and [place]ardo[place] | + + + | Organization | [facility] | | | and [place] | + + + | Address | Unknown | + + + | Phone | Unavailable | + + + Support + + + + + | Name | Relationship | Address | Phone | + + + + + | Poncho Oquendo | ECON | [address] | | | | | [facility] [place] | | | | | [address] | | + + + + + | Marta Upton | ECON | [place], [place] | | | | | [address] | | + + + + + Care Team Providers + +------+ + | Care Jd Edwards Consultant Name | Role | Phone | + +------+ + PCP | Unavailable | + +------+ + Encounter Details +--------+ + + + + | Date | Type | Department | Care Team | Description | +--------+ + + + + | 07/15/ | Hospital | [facility] | Dale Taylor MD | | | 2011 | Encounter | MED CTR XRAY [address] | [address] | | | | | [place] | [address] [place], | | | | | [place] [address] | [place] [address] | | | | | [phone] | [phone] | | | | | | | [address] | | | | | | [place] [address] | | | | | | [phone] | | | | | | | | +--------+---------+ + + + documented as of this encounter Procedures + +--------+ + + + | Procedure Name | Priori | Date/Time | Associated Diagnosis | Comments | | | ty | | | | + +--------+ + + + | MRI BRAIN W WO | | 07/16/2011 | | Results for this | | CONTRAST | | 9:10 AM | | procedure are in the | | | | PDT | | results section. | + +--------+ + + + documented in this encounter Results MRI Brain w wo Contrast (07/16/2011 9:10 AM PDT) + + | Specimen | + + | | + + + + + | Narrative | Performed At | + + + | [facility] Diagnostic Imaging Department | [facility] | | [address] [facility] [address] [facility] [address] | [facility] | | MRI OF THE BRAIN EXTENDED WITHOUT | DIAG IMG | | AND WITH CONTRAST: 07/16/2011 CLINICAL HISTORY: HEARING LOSS | | | LEFT EAR. COMPARISON: None. TECHNIQUE: Multiplanar, | | | multisequence MR imaging of the brain prior to and following the | | | uneventful intravenous administration of 15 mL of Magnevist | | | contrast. FINDINGS: There are no areas of altered signal within | | | the cerebral or cerebellar parenchyma. The ve ntricles are normal | | | in size and configuration. No abnormal extra-axial fluid | | | collections. There are no areas of restricted diffusion to suggest | | | acute ischemia. No areas of GRE márquez artifact to sugge st | | | abnormal hemosiderin deposition or mineralization. The major | | | intracranial flow voids are visualiz ed as patent with the exception | | | of the distal left vertebral artery where a distinct and definitive i | | | ntracranial flow void is not visualized. Following gadolinium | | | administration there are no areas of a bnormal parenchymal or | | | extraparenchymal enhancement. Enhancement is present in the | | | cavernous and dur al venous sinuses which suggests patency. There | | | is enhancement of the intracranial vessels previousl y identified as | | | having flow voids. Again, distal left vertebral is not identified. | | | There is some fl uid signal in the left mastoid tip. There is | | | evidence of prior ethmoidectomy. There is some residua l mucosal | | | disease in the sphenoid sinuses. The globes and retroconal contents | | | are intact and unremar kable. The scalp and skull are intact and | | | unremarkable. The seventh and eighth cranial nerve complexes | | | are unremarkable. No abnormal enhancement in the cere bellopontine | | | angle or internal auditory canals to suggest an acoustic neuroma. | | | IMPRESSION: NONVISUALIZATION OF A FLOW VOID OR ENHANCEMENT WITHIN | | | THE LEFT DISTAL VERTEBRAL ARTERY. THE CLINICAL SIGNIFICANCE OF | | | THIS IS UNCERTAIN. COMMENT: IF DESIRED AN MR ANGIOGRAM | | | MAY BE OF BENEFIT FOR FURTHER EVALUATION. Dictated Date/Time: | | | 07/16/2011 12:45 Transcribed Date/Time: 07/16/2011 12:57 | | | Concert Manager: <Electronically Signed by Mathieu Brasher, | | | > 07/16/11 7027 | | + + + + + | Procedure Note | + + | Edmundo, Rad Conversion - 03/23/2013 5:27 PM [facility] | | Diagnostic Imaging Department [address] [place] [address] | | MRI OF THE BRAIN EXTENDED WITHOUT AND WITH CONTRAST: | | 07/16/2011 CLINICAL HISTORY: HEARING LOSS LEFT EAR. COMPARISON: None. TECHNIQUE: | | Multiplanar, multisequence MR imaging of the brain prior to and following the uneventful | | intravenous administration of 15 mL of Magnevist contrast. FINDINGS: There are no | | areas of altered signal within the cerebral or cerebellar parenchyma. The ventricles | | are normal in size and configuration. No abnormal extra-axial fluid collections. There | | are no areas of restricted diffusion to suggest acute ischemia. No areas of GRE márquez | | artifact to suggest abnormal hemosiderin deposition or mineralization. The major | | intracranial flow voids are visualized as patent with the exception of the distal left | | vertebral artery where a distinct and definitive intracranial flow void is not | | visualized. Following gadolinium administration there are no areas of abnormal | | parenchymal or extraparenchymal enhancement. Enhancement is present in the cavernous | | and dural venous sinuses which suggests patency. There is enhancement of the | | intracranial vessels previously identified as having flow voids. Again, distal left | | vertebral is not identified. There is some fluid signal in the left mastoid tip. There | | is evidence of prior ethmoidectomy. There is some residual mucosal disease in the | | sphenoid sinuses. The globes and retroconal contents are intact and unremarkable. The | | scalp and skull are intact and unremarkable. The seventh and eighth cranial nerve | | complexes are unremarkable. No abnormal enhancement in the cerebellopontine angle or | | internal auditory canals to suggest an acoustic neuroma. IMPRESSION: NONVISUALIZATION | | OF A FLOW VOID OR ENHANCEMENT WITHIN THE LEFT DISTAL VERTEBRAL ARTERY. THE CLINICAL | | SIGNIFICANCE OF THIS IS UNCERTAIN. COMMENT: IF DESIRED AN MR ANGIOGRAM MAY BE OF | | BENEFIT FOR FURTHER EVALUATION. Dictated Date/Time: 07/16/2011 12:45Transcribed | | Date/Time: 07/16/2011 12:57Transcriptionist: LARISA<Electronically Signed by Mathieu Field | | MD Anshu> 07/16/11 1437 | | | |The seventh and eighth cranial nerve complexes are unremarkable. No abnormal enhancement i n the cere | |bellopontine angle or internal auditory canals to suggest an acoustic neuroma. | | | |IMPRESSION: NONVISUALIZATION OF A FLOW VOID OR ENHANCEMENT WITHIN THE LEFT DISTAL VERTEBRA L ARTERY. | | THE CLINICAL SIGNIFICANCE OF THIS IS UNCERTAIN. | | | | | | | |COMMENT: IF DESIRED AN MR ANGIOGRAM MAY BE OF BENEFIT FOR FURTHER EVALUATION. | | | |Dictated Date/Time: 07/16/2011 12:45 | |Transcribed Date/Time: 07/16/2011 12:57 | |Concert Manager: | |<Electronically Signed by Mathieu Brasher MD> 07/16/11 1437 | + + + +---------+ + + [...]
--- OUTSIDE RECORDS SUMMARY | ~2019-06-13 | XMS | Encounter Summary ---
Demographics + + + | Address | [address] | | | [place] [address] | + + + | Home Phone | | + + + | Preferred Language | Unknown | + + + | Marital Status | | + + + | Advent Affiliation | Unknown | + + + | Race | Unknown | + + + | Ethnic Group | Unknown | + + + Author + + + | Author | [facility] | | | and [place]ardo[place] | + + + | Organization | [facility] | | | and [place] | + + + | Address | Unknown | + + + | Phone | Unavailable | + + + Support + + + + + | Name | Relationship | Address | Phone | + + + + + | Poncho Oquendo | ECON | [address] | | | | | [place] | | | | | [address] | | + + + + + | Marta Upton | ECON | [place] | | | | | [address] | | + + + + + Care Team Providers + +------+ + | Care Mid Level Net Developer Name | Role | Phone | + +------+ + | Valeriy Carmona DO | PCP | | + +------+ + Reason for Visit + + + | Reason | Comments | + + + | Medication Question | | + + + Encounter Details +--------+ + + + + | Date | Type | Department | Care Team | Description | +--------+ + + + + | 07/03/ | Telephone | [facility] | Reinaldo, | Medication Question | | 2019 | | MED CTR MEDICAL | Epifanio Soler MD [address] | | | | | [facility] | [facility] | | | | | [facility] | [place] [address] | | | | | [place] [address] | [phone] | | | | | [phone] | | | +--------+ + + + [...] [address] | | | | | | [place] [address] | | | | | | [phone] | | | | | | | | +--------+---------+ + + + documented as of this encounter Visit Diagnoses Not on filedocumented in this encounter"
--- OUTSIDE RECORDS SUMMARY | ~2019-06-13 | XMS | Encounter Summary ---
Demographics + + + | Address | [address] | | | [place] [address] | + + + | Home Phone | | + + + | Preferred Language | Unknown | + + + | Marital Status | | + + + | Zoroastrianism Affiliation | Unknown | + + + | Race | Unknown | + + + | Ethnic Group | Unknown | + + + Author + + + | Author | [facility] | | | and Eduardo[place] | + + + | Organization | [facility] | | | and [place] | + + + | Address | Unknown | + + + | Phone | Unavailable | + + + Support + + + + + | Name | Relationship | Address | Phone | + + + + + | Poncho Oquendo | ECON | [address] | | | | | [facility] [place] | | | | | [address] | | + + + + + | Marta Upton | ECON | [place], [place] | | | | | [address] | | + + + + + Care Team Providers + +------+ + | Care Lead Portfolio Manager Name | Role | Phone | + +------+ + PCP | Unavailable | + +------+ + Encounter Details +--------+ + + + + | Date | Type | Department | Care Team | Description | +--------+ + + + + | 03/19/ | Hospital | [facility] | | | | 2013 | Encounter | MED CTR XRAY [address] | | | | | | [place] | | | | | | [place] [address] | | | | | | [phone] | | | +--------+ + + + [...] [address] | | | | | | [place] [address] | | | | | | [phone] | | | | | | | | +--------+---------+ + + + documented as of this encounter Procedures + +--------+ + + + | Procedure Name | Priori | Date/Time | Associated Diagnosis | Comments | | | ty | | | | + +--------+ + + + | CT ABDOMEN W | Routin | 03/19/2013 | | Results for this | | CONTRAST | e | 2:46 PM | | procedure are in the | | | | PST | | results section. | + +--------+ + + + documented in this encounter Results CT Abdomen w Contrast (03/19/2013 2:46 PM PST) + + | Specimen | + + | | + + + + + | Narrative | Performed At | + + + | [facility] Diagnostic Imaging | [place] | | Department [address], [place] | [place] | | [ rep ct [address]] [ rep ct [facility] | | st zip] Signed | - IMAGING | | | | | Patient Name: JENELLEAURA HANSON Physician: | | | [id number] : 1960 Age: 52 Sex: F Unit #: [id number] | | | Exam Date: 03/19/13 Location: 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 PLEASE EVALUATE ABNORMALITY SEEN ON RECENT | | | SCAN. COMPARISON: 01/15/2013 chest, abdomen, and | | | pelvis CT. TECHNIQUE: Imaging is performed through the | | | abdomen after the uneventful intravenous administration of 90 mL of | | | Isovue-370. A portal venous phase and a 15-minute delayed phase | | | sequence were acquired through the liver. FINDINGS: | | | There are postsurgical changes in the gallbladder fossa and estevan | | | hepatis. There are low- density regions anterior and posterior to | | | the gallbladder fossa with some intervening normal-appearing liver | | | parenchyma. These low-density regions were present on the prior | | | study. The more anteriorly located one was felt to be new. It is | | | smaller in size measuring a greatest longitudinal dimension of 2.6 | | | versus 3.6 cm previously. On the delayed phase sequence, the | | | enhancement in and around the low- density area and the intervening | | | parenchyma is similar to the remainder of the liver with the | | | exception of the low-density regions which remain unchanged. This | | | suggests against cholangiocarcinoma in this region. The remainder | | | of the liver is more normal in attenuation and enhancement. | | | The visible lower lungs remain clear. Incidental note is made | | | of a Bochdalek hernia containing fat content on the left. The | | | spleen has calcifications indicating prior granulomatous disease. | | | There are no adrenal masses. The pancreas is intact and is | | | unremarkable. The kidneys are symmetrically enhancing. No | | | obstructive uropathy. No focal renal abnormalities. No | | | nephrolithiasis. The visible gastrointestinal tract does contain | | | diverticular disease but no current evidence of diverticulitis. No | | | visible lymphadenopathy. The osseous structures are unremarkable. | | | IMPRESSION: 1. POSTOPERATIVE AND THERAPEUTIC | | | CHANGES IN THE GALLBLADDER FOSSA WITHOUT FINDINGS SUSPICIOUS FOR | | | RESIDUAL OR RECURRENT CHOLANGIOCARCINOMA. 2. | | | DIVERTICULOSIS WITHOUT CURRENT EVIDENCE TO SUGGEST ACTIVE | | | DIVERTICULITIS. Dictated Date/Time: 03/19/2013 14:46 | | | Transcribed Date/Time: 03/19/2013 18:25 Supervisor Enrobing: | | | MS1 <<Signature on File>> | | | Mathieu | | | Emir Brasher MD03/19/131940 <Electronically signed by Mathieu Field | | | Anshu LI> Mathieu Brasher MD 03/19/13 1446 | | | Supervisor Enrobing: Catarino Ctaimvljpernx43/03/14 1825 | | | Epifanio Najera MD | | + + + + + + + + | Performing | Address | City/State/Zipcode | Phone Number | | Organization | | | | + + + + + | [facility] | [address] | [place] | [phone] | | [facility] | | [address] | | | - IMAGING | | | | + + + + + documented in this encounter Visit Diagnoses Not on filedocumented in this encounter
--- OUTSIDE RECORDS SUMMARY | ~2019-06-13 | XMS | Encounter Summary ---
Demographics + + + | Address | [address] | | | [place] [address] | + + + | Home Phone | | + + + | Preferred Language | Unknown | + + + | Marital Status | | + + + | Hinduism Affiliation | Unknown | + + + | Race | Unknown | + + + | Ethnic Group | Unknown | + + + Author + + + | Author | [facility] | | | and [place] | + + + | Organization | [facility] | | | and [place] | + + + | Address | Unknown | + + + | Phone | Unavailable | + + + Support + + + + + | Name | Relationship | Address | Phone | + + + + + | Poncho Oquendo | ECON | [address] | | | | | [place] | | | | | [address] | | + + + + + | Marta Upton | ECON | [place] | | | | | [address] | | + + + + + Care Team Providers + +------+ + | Care Staff Electrical Engineer Name | Role | Phone | + +------+ + | Valeriy Carmona DO | PCP | | + +------+ + Encounter Details +--------+ + + + + | Date | Type | Department | Care Team | Description | +--------+ + + + + | 05/07/ | Orders Only | [facility] | Marcelina Johnson, | | | 2016 | | MED CTR CHEMO | RN | | | | | INFUSION [address] | | | | | | [place], | | | | | | [place] [address] | | | | | | [phone] | | | +--------+ + + + [...] | | | | | [place] [address] | | | | | | [phone] | | | | | | | | +--------+---------+ + + + documented as of this encounter Visit Diagnoses Not on filedocumented in this encounter"
--- OUTSIDE RECORDS SUMMARY | ~2019-06-13 | XMS | Encounter Summary ---
Demographics + + + | Address | [address] | | | [place] [address] | + + + | Home Phone [...] Team Providers + +------+ + | Care Maintenance Repairer Name | Role | Phone | + +------+ + | Tomasa Wagner | PCP | | + +------+ + Encounter Details +--------+ + + + + | Date | Type | Department | Care Team | Description | +--------+ + + + + | 06/13/ | MyChart | [facility] | Miguel Seymour, | RE: Still No Bowel | | 2015 | Encounter | [facility] [place] [facility] | [address] | Movement What Is My | | | | [address] | [facility] | Next Step? | | | | [address] | [place], [place] | | | | | Alexis, [facility] floor | [address] | | | | | [place], [place] | [phone] | | | | | [address] | | | | | | [phone] | | | +--------+ + + + [...]
--- OUTSIDE RECORDS SUMMARY | ~2019-06-13 | XMS | Encounter Summary ---
Demographics + + + | Address | [address] | | | [place] [address] | + + + | Home Phone [...] Author + + + | Author | [facility] | + + + | Organization | [facility] | + + + | [...] Team Providers + +------+ + | Care Terminal Operations Supervisor Name | Role | Phone | + [...] Mojica | (distress); | | | | [facility] | [address] | Questionnaire | | | | for Health and | [facility] [place] [address] | | | | | Healing [address] | [phone] | | | | | [place], | | | | | | [place] [address] | | | | | | [phone] | | | +--------+ + + + [...]
--- OUTSIDE RECORDS SUMMARY | ~2019-06-13 | XMS | Encounter Summary ---
Demographics + + + | Address | [address] | | | [place] [address] | + + + | Home Phone | | + + + | Preferred Language | Unknown | + + + | Marital Status | | + + + | Moravian Affiliation | Unknown | + + + | Race | Unknown | + + + | Ethnic Group | Unknown | + + + Author + + + | Author | [facility] | | | and [place]ardo[place] | + + + | Organization | [facility] | | | and [place] | + + + | Address | Unknown | + + + | Phone | Unavailable | + + + Support + + + + + | Name | Relationship | Address | Phone | + + + + + | Poncho Oquendo | ECON | [address] | | | | | [place] | | | | | [address] | | + + + + + | Marta Upton | ECON | [place] | | | | | [address] | | + + + + + Care Team Providers + +------+ + | Care Die Cast Operator Name | Role | Phone | [...] cancer, | | 2017 | | [facility] | Epifanio Soler MD [address] | carcinoma (HCC) | | | | ONCOLOGY CL[address] [address] | [address] [place] | | | | | [address] [place] | [place] [address] | | | | | [place] [address] | [phone] | | | | | [phone] | | | +--------+ + + + [...] [address] | | | | | | [place] [address] | | | | | | [phone] | | | | | | | | +--------+---------+ + + + documented as of this encounter Visit Diagnoses + + | Diagnosis | + + | Gallbladder cancer, carcinoma (HCC) Malignant neoplasm of gallbladder | + + documented in this encounter"
--- OUTSIDE RECORDS SUMMARY | ~2019-06-13 | XMS | Encounter Summary ---
Demographics + + + | Address | [address] | | | [place] [address] | + + + | Home Phone | | + + + | Preferred Language | Unknown | + + + | Marital Status | | + + + | Jew Affiliation | Unknown | + + + | Race | Unknown | + + + | Ethnic Group | Unknown | + + + Author + + + | Author | [facility] | | | and [place] | + + + | Organization | [facility] | | | and [place] | + + + | Address | Unknown | + + + | Phone | Unavailable | + + + Support + + + + + | Name | Relationship | Address | Phone | + + + + + | Poncho Oquendo | ECON | [address] | | | | | [place] | | | | | [address] | | + + + + + | Marta Upton | ECON | [place] | | | | | [address] | | + + + + + Care Team Providers + +------+ + | Care Boat Person Name | Role | Phone | [...] | ON[address] CLINIC [address] | [facility] | | | | | [address] [facility] | [place] [address] | | | | | [place] [address] | [phone] | | | | | [phone] | | | +--------+ + + + [...] [address] | | | | | | [place] [address] | | | | | | [phone] | | | | | | | | +--------+---------+ + + + documented as of this encounter Visit Diagnoses Not on filedocumented in this encounter"
--- OUTSIDE RECORDS SUMMARY | ~2019-06-13 | XMS | Encounter Summary ---
Demographics + + + | Address | [address] | | | [place] [address] | + + + | Home Phone [...] Author + + + | Author | [facility] | + + + | Organization | [facility] | + + + | Address [...] Team Providers + +------+ + | Care Knot Cutter Name | Role | Phone | + +------+ + | Prudencio Isaac MD | PCP | | + +------+ + Encounter Details +--------+ + + + + | Date | Type | Department | Care Team | Description | +--------+ + + + + | 04/25/ | Abstract | [facility] | Tai Stanton, | | | 2012 | | Center at [address] | [address] | | | | | [facility] | [facility] | | | | | for [facility] and | [place], [place] | | | | | [facility] [address] | [address] | | | | | [place], [place] | [phone] | | | | | [address] | | | | | | [phone] | | | +--------+ + + + [...]
--- OUTSIDE RECORDS SUMMARY | ~2019-06-13 | XMS | Encounter Summary ---
Demographics + + + | Address | [address] | | | [place] [address] | + + + | Home Phone [...] Team Providers + +------+ + | Care Adjunct Lecturer Name | Role | Phone | + +------+ + PCP | Unavailable | + +------+ + Encounter Details +--------+ + + + + | Date | Type | Department | Care Team | Description | +--------+ + + + + | 03/22/ | Results | | Other, Faculty | | | 2003 | Only | | [phone] | | +--------+ + + + + [...] | | | | | please call [phone] | | | | | | [phone].Rendering | | | | | | Diagnostician: [...] + + | Ordered by Yaw Marcelo DISPENSING AUDIOLOGIST | | + + + + + + + + | Performing | Address | City/State/Zipcode | Phone Number | | Organization | | | | + + + + + | [facility] | [facility] [place] | [place] [address] | | | [facility] | [address] | | | | | [address]VE. | | | + + + + + documented in this encounter Visit Diagnoses Not on filedocumented in this encounter"
--- OUTSIDE RECORDS SUMMARY | ~2019-06-13 | XMS | Encounter Summary ---
Demographics + + + | Address | [address] | | | [place] [address] | + + + | Home Phone [...] Team Providers + +------+ + | Care Vending Machine Servicer Name | Role | Phone | + [...] | 2014 | Encounter | [facility] | [address] | Return to Work | | | | [address] | [address] | Authorization? | | | | [address] | [place], [place] | | | | | Alexis, [facility] floor | [address] | | | | | [place], [place] | [phone] | | | | | [address] | | | | | | [phone] | | | +--------+ + + + [...]
--- OUTSIDE RECORDS SUMMARY | ~2019-06-13 | XMS | Encounter Summary ---
Demographics + + + | Address | [address] | | | [place] [address] | + + + | Home Phone | | + + + | Preferred Language | Unknown | + + + | Marital Status | | + + + | Bahai Affiliation | Unknown | + + + | Race | Unknown | + + + | Ethnic Group | Unknown | + + + Author + + + | Author | [facility] | | | and [place] | + + + | Organization | [facility] | | | and [place] | + + + | Address | Unknown | + + + | Phone | Unavailable | + + + Support + + + + + | Name | Relationship | Address | Phone | + + + + + | Poncho Oquendo | ECON | [address] | | | | | [place] | | | | | [address] | | + + + + + | Marta Upton | ECON | [place] | | | | | [address] | | + + + + + Care Team Providers + +------+ + | Care Thread Roller Name | Role | Phone | + [...] | | | [facility] | [facility] | | | | | [facility] | [place] [address] | | | | | [place] [address] | [phone] | | | | | [phone] | | | +--------+ + + + [...] [facility] | | | | | | [facility] [address] | | | | | | [phone] | | | | | | | | +--------+---------+ + + + documented as of this encounter Visit Diagnoses Not on filedocumented in this encounter"
--- OUTSIDE RECORDS SUMMARY | ~2019-06-13 | XMS | Encounter Summary ---
Demographics + + + | Address | [address] | | | [place] [address] | + + + | Home Phone [...] Author + + + | Author | [facility] | + + + | Organization | [facility] | + + + | [...] Team Providers + +------+ + | Care Turret Lathe Set Up Operator Name | Role | Phone | + +------+ + | Prudencio Isaac MD | PCP | Unavailable | + +------+ + Reason for Visit + + + | Reason | Comments | + + + | Work Release | Needs release extended for her employer. | + + + Encounter Details +--------+ + + + + | Date | Type | Department | Care Team | Description | +--------+ + + + + | 07/18/ | Telephone | Otolaryngology | Virgilio Buck MD | Work Release (Needs | | 2008 | | Facial Plastics & | [address] | release extended for | | | | Reconstructive | Velma Dennis, | her employer.) | | | | Services at [facility] | [place] [address] | | | | | [address] | [phone] | | | | | Mailcode: CH5E | | | | | | [facility] | | | | | | and Healing, | | | | | | [address] | | | | | | [place], [place] | | | | | | [address] | | | | | | [phone] | | | +--------+ + + + [...]
--- OUTSIDE RECORDS SUMMARY | ~2019-06-13 | XMS | Encounter Summary ---
Demographics + + + | Address | [address] | | | [place] [address] | + + + | Home Phone [...] + + | Author | [facility] | + + + | Organization | [facility] | + + + | [...] Team Providers + +------+ + | Care Erp Programmer Name | Role | Phone | + +------+ + | Tomasa Wagner | PCP | | + +------+ + Encounter Details +--------+ + + + + | Date | Type | Department | Care Team | Description | +--------+ + + + + | 09/13/ | Abstract | Digestive Health | Tai Stanton, | | | 2012 | | Center at [facility] [address] | [address] | | | | | HIEN [facility] | [facility] | | | | | for Health and | [place], [place] | | | | | [facility], [place] [address] | [address] | | | | | [place], [place] | [phone] | | | | | [address] | | | | | | [phone] | | | +--------+ + + + [...]
--- OUTSIDE RECORDS SUMMARY | ~2019-06-13 | XMS | Encounter Summary ---
Demographics + + + | Address | [address] | | | [place] [address] | + + + | Home Phone | | + + + | Preferred Language | Unknown | + + + | Marital Status | Single | + + + | Evangelical Affiliation | NON | + + + | Race | White | + + + | Ethnic Group | Not or | + + + Author + + + | Author | [facility] | + + + | Organization | [facility] | + + + | [...] Team Providers + +------+ + | Care Meal Grinder Tender Name | Role | Phone | + +------+ + | Tomasa Wagner | PCP | | + +------+ + Encounter Details +--------+ + + + + | Date | Type | Department | Care Team | Description | +--------+ + + + + | 06/01/ | Abstract | Digestive Health | Tai Stanton, | | | 2012 | | Center at [facility] [address] | [address] | | | | | HIEN [facility] | [facility] | | | | | for Health and | [place], [place] | | | | | [facility] [place], [place] [address] | [address] | | | | | [place], [place] | [phone] | | | | | [address] | | | | | | [phone] | | | +--------+ + + + [...]
--- OUTSIDE RECORDS SUMMARY | ~2019-06-13 | XMS | Encounter Summary ---
Demographics + + + | Address | [address] | | | [place] [address] | + + + | Home Phone | | + + + | Preferred Language | Unknown | + + + | Marital Status | Single | + + + | Adventist Affiliation | NON | + + + [...] Team Providers + +------+ + | Care Self Rising Flour Mixer Name | Role | Phone | + +------+ + | Tomasa Wagner | PCP | | + +------+ + Encounter Details +--------+ + + + + | Date | Type | Department | Care Team | Description | +--------+ + + + + | 06/12/ | Telephone | Digestive Health | Tai Stanton, | | | 2012 | | Center at [facility] [address] | [address] | | | | | HIEN [facility] | [facility] | | | | | for Health and | [place], [place] | | | | | [facility], [place] [address] | [address] | | | | | [place], [place] | [phone] | | | | | [address] | | | | | | [phone] | | | +--------+ + + + [...]
--- OUTSIDE RECORDS SUMMARY | ~2019-06-13 | XMS | Encounter Summary ---
Demographics + + + | Address | [address] | | | [place] [address] | + + + | Home Phone | | + + + | Preferred Language | Unknown | + + + | Marital Status | | + + + | Yarsanism Affiliation | Unknown | + + + | Race | Unknown | + + + | Ethnic Group | Unknown | + + + Author + + + | Author | [facility] | | | and [place]ardo[place] | + + + | Organization | [facility] | | | and [place]ardo[place] | + + + | Address | Unknown | + + + | Phone | Unavailable | + + + Support + + + + + | Name | Relationship | Address | Phone | + + + + + | Poncho Oquendo | ECON | [address] | | | | | [place] | | | | | [address] | | + + + + + | Marta Upton | ECON | [place] | | | | | [address] | | + + + + + Care Team Providers + +------+ + | Care Optical Instrument Specialist Name | Role | Phone | + +------+ + | Valeriy Carmona DO | PCP | | + +------+ + Encounter Details +--------+ + + + + | Date | Type | Department | Care Team | Description | +--------+ + + + + | 07/05/ | Hospital | [facility] | Pedro Green, | | | 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 | [facility] | DO [address] | | | | | [address] | [place] [address] | | | | | [place], [place] | [phone] | | | | | [address] | | | | | | [phone] | | | +--------+ + + + [...] (none) Author Type: Registered Nurse Filed: 07/05/18 0919 Date of Service: 07/05/181540 Status: Signed Grading Supervisor: Erika Lorenzana, RN (Registered Nurse) Discharge instructions, [...] TAI | | | | | | [place] [address] | | | | | | [phone] | | | | | | | [...]
--- OUTSIDE RECORDS SUMMARY | ~2019-06-13 | XMS | Encounter Summary ---
Demographics + + + | Address | [address] | | | [place] [address] | + + + | Home Phone [...] Author | [facility] | | | and [place]ardo[place] | + + + | Organization | [facility] | | | and Eduardo[place] | + + + | Address | Unknown | + + + | Phone | Unavailable | + + + Support + + + + + | Name | Relationship | Address | Phone | + + + + + | Poncho Oquendo | ECON | [address] | | | | | [facility] [place] | | | | | [address] | | + + + + + | Marta Upton | ECON | [place] | | | | | [address] | | + + + + + Care Team Providers + +------+ + | Care Delivery Coordinator Name | Role | Phone | + +------+ + | No, Physician | PCP | Unavailable | + +------+ + Reason for Visit +--------+ + | Reason | Comments | +--------+ + | Other | Canceling Appointment | +--------+ + Encounter Details +--------+ + + + + | Date | Type | Department | Care Team | Description | +--------+ + + + + | 10/18/ | Telephone | [facility] | Pedro Green, | Other (Canceling | | 2019 | | UROLOGY [address] | DO [address] | Appointment) | | | | [address] | [place] [address] | | | | | [place], [place] | [phone] | | | | | [address] | | | | | | [phone] | | | +--------+ + + + [...] [facility] | | | | | | [place] [address] | | | | | | [phone] | | | | | | | | +--------+---------+ + + + documented as of this encounter Visit Diagnoses Not on filedocumented in this encounter"
--- OUTSIDE RECORDS SUMMARY | ~2019-06-13 | XMS | Encounter Summary ---
Demographics + + + | Address | [address] | | | [place] [address] | + + + | Home Phone [...] | Author | [facility] | | | and Eduardo[place] | + + + | Organization | [facility] | | | and Eduardo[place] | + + + | Address | Unknown | + + + | Phone | Unavailable | + + + Support + + + + + | Name | Relationship | Address | Phone | + + + + + | Poncho Oquendo | ECON | [address] | | | | | [facility] [place] | | | | | [address] | | + + + + + | Marta Upton | ECON | [place], [place] | | | | | [address] | | + + + + + Care Team Providers + +------+ + | Care Marketing Writer Name | Role | Phone | + +------+ + PCP | Unavailable | + +------+ + Encounter Details +--------+ + + + + | Date | Type | Department | Care Team | Description | +--------+ + + + + | 10/12/ | Hospital | [facility] | | | | 2012 - | Encounter | [facility] | | | | | | CENTER [address] | | | | 10/14/ | | [place] | | | | 2012 | | [address] | | | | | | [phone] | | | +--------+ + + + [...] [facility] | | | | | | [place] [address] | | | | | | [phone] | | | | | | | [...] + + + + | WBC | 2.7 (L) | 4.0 - 11.0 K/uL | [facility] | | | | [facility] | | | | | | [facility] - | | | | | | LABORATORY | | + + + + + + | RBC | 4.01 | 3.70 - 5.20 | [...] 0.5 | 0.0 - 1.0 K/uL | [facility] | | | Monocytes | | | [...] + | [facility] | [address] | [place] | [phone] | | [facility] | | [address] | | | - LABORATORY | | | | + + + + + | [facility] | [address] | [place] | | | [facility] | | [id number] [place] [address] | | | - LABORATORY | | [...] | | (formerly Mahad) Advia | | [facility] | | | | Centaur immunoassay [...] | | | | [address], [place], [place] | | | | | | [address] CLIA: | | | | | | [id number] | | | | + + + + + + + + | Specimen | + + | | + + + + + + + | Performing | Address | City/State/Zipcode | Phone Number | | Organization | | | | + + + + + | [facility] | [address] | [place] | [phone] | | [facility] | | [address] | | | - LABORATORY | | | | + + + + + | [facility] | [address] | [place], [place] | | | [facility] | | [address] | | | - LABORATORY | [...] | | | | mg/dL | [facility] | | | | [...] | >60Comment: For | >60 mL/min/A | COMPA | | | GFR | -Americans, | [...] 139 | 136 - 149 mEq/L | [facility] | | | | | [...] | 14.0 | 6.0 - 17.0 | [facility] | [...] + | [facility] | [address] | [place], [place] | [phone] | | [facility] | | [address] | | | - LABORATORY | | | | + + + + + | [facility] | [address] | [place] | | | [facility] | | [address], [facility] | | | - LABORATORY [...] + | [facility] | [address] | [place] | [phone] | | [facility] | | [address] | | | - LABORATORY | | | | + + + + + | [facility] | [address] | [place] | | | [facility] | | [address] | | | - LABORATORY | [...] | | | DIFFER[facility] | | | [facility] | | | L ? | | | MEDICAL | | | | | | CENTER - | | | | | | LABORATORY | | + + + + + + | WBC | 3.8 (L) | 4.0 - 11.0 K/uL | [facility] | | | | | [facility] | | | | | | MEDICAL | | | | | | CENTER - | | | | | | LABORATORY | | + + + + + + | RBC | 4.10 | 3.70 - 5.20 | [facility] | | | | | M/uL | [facility] | [...] + | [facility] | [address] | [place], [place] | [phone] | | [facility] | | [address] | | | - LABORATORY | | | | + + + + + | [facility] | [address] | [place], [place] | | | [facility] | | [address], [facility] | | | - LABORATORY [...] | | (formerly Mahad) Advia | | [facility] | | | | Hire An Esquireaur immunoassay | | MEDICAL | | | [...] | | | | | [address] [place], [place] | | | | | | [address] CLIA: | | | | | | [id number] | | | | + + + + + + + + | Specimen | + + | | + + + + + + + | Performing | Address | City/State/Zipcode | Phone Number | | Organization | | | | + + + + + | [facility] | [address] | [place], [place] | [phone] | | [facility] | | [address] | | | - LABORATORY | | | | + + + + + | [facility] | [address] | [place], [place] | | | [facility] | | [address], [facility] | | | - LABORATORY [...] 72 | 70 - 109 mg/dL | [facility] [...] | | ine Ratio | | | Timmy [facility] | | | | [...] + | [facility] | [address] | [place] | [phone] | | [facility] | | [address] | | | - LABORATORY | | | | + + + + + | [facility] | [address] | [place] | | | [facility] | | [address] | | | - LABORATORY | [...] + | [facility] | [address] | [place], [place] | [phone] | | [facility] | | [address] | | | - LABORATORY | | | | + + + + + | [facility] | [address] | [place], [place] | | | [facility] | | [address], [facility] | | | - LABORATORY [...] + + + + | WBC | 3.8 (L) | 4.0 - 11.0 K/uL | [facility] | | | | | [facility] | | | | | | MEDICAL | | | | | | CENTER - | | | | | | LABORATORY | | + + + + + + | RBC | 4.43 | 3.70 - 5.20 | [...] + | [facility] | [address] | [place], [place] | [phone] | | [facility] | | [address] | | | - LABORATORY | | | | + + + + + | [facility] | [address] | [place], [place] | | | [facility] | | [address] [place] [address] | | | - LABORATORY | | [...] | | (formerly Mahad) Advia | | [facility] | | | | Centaur immunoassay [...] [place] | | | | | | [address] CLIA: | | | | | | [id number] | | | | + + + + + + + + | Specimen | + + | | + + + + + + + | Performing | Address | City/State/Zipcode | Phone Number | | Organization | | | | + + + + + | [facility] | [address] | [place], [place] | [phone] | | [facility] | | [address] | | | - LABORATORY | | | | + + + + + | [facility] | [address] | [place] | | | [facility] | | [address] [place] [address] | | | - LABORATORY | | [...] | 0.88 | 0.60 - 1.30 | [facility] | [...] + | [facility] | [address] | [place] | [phone] | | [facility] | | [address] | | | - LABORATORY | | | | + + + + + | [facility] | [address] | [place] | | | [facility] | | [address], [facility] | | | - LABORATORY | | | | + + + + + Lactate Dehydrogenase (09/28/2012 7:44 AM PDT) + +-------+ + + + | Component | Value | Ref Range | Performed | Pathologist | | | | | At | Signature | + +-------+ + + + | LDH TOTAL | 153 | 91 - 180 IU/L | [facility] [...] + | [facility] | [address] | [place], [place] | [phone] | | [facility] | | [address] | | | - LABORATORY | | | | + + + + + | [facility] | [address] | [place], [place] | | | [facility] | | [address], [facility] | | | - LABORATORY [...] + + + + | WBC | 5.3 | 4.0 - 11.0 K/uL | [facility] | | | | [facility] | | | | | | MEDICAL | | | | | | CENTER - | | | | | | LABORATORY | | + + + + + + | RBC | 4.30 | 3.70 - 5.20 | [...] + | [facility] | [address] | [place], [place] | [phone] | | [facility] | | [address] | | | - LABORATORY | | | | + + + + + | [facility] | [address] | [place], [place] | | | [facility] | | [address] [place] [address] | | | - LABORATORY | | [...] | | (formerly Mahad) Advia | | [facility] | | | | Hire An Esquireaur immunoassay | | MEDICAL | | | [...] [place] | | | | | | [address] CLIA: | | | | | | [id number] | | | | + + + + + + + + | Specimen | + + | | + + + + + + + | Performing | Address | City/State/Zipcode | Phone Number | | Organization | | | | + + + + + | [facility] | [address] | [place], [place] | [phone] | | [facility] | | [address] | | | - LABORATORY | | | | + + + + + | [facility] | [address] | [place], [place] | | | [facility] | | [address], [facility] | | | - LABORATORY [...] | 0.84 | 0.60 - 1.30 | [facility] | [...] | 10.3 | 6.0 - 17.0 | [facility] | [...] [address] | [place] | [phone] | | [facility] | | [address] | | | - LABORATORY | | | | + + + + + | [facility] | [address] | [place], [place] | | | [facility] | | [address], [facility] | | | - LABORATORY [...] [address] | [place] | [phone] | | [facility] | | [address] | | | - LABORATORY | | | | + + + + + | [facility] | [address] | [place] | | | [facility] | | [address] [place] [address] | | | - LABORATORY | | | | + + + + + documented in this encounter Visit Diagnoses Not on filedocumented in this encounter"
--- OUTSIDE RECORDS SUMMARY | ~2019-06-13 | XMS | Encounter Summary ---
Demographics + + + | Address | [address] | | | [place] [address] | + + + | Home Phone [...] | [facility] | | | and Eduardo[place] | + + + | Organization | [facility] | | | and Eduardo[place] | + + + | Address | Unknown | + + + | Phone | Unavailable | + + + Support + + + + + | Name | Relationship | Address | Phone | + + + + + | Poncho Oquendo | ECON | [address] | | | | | [place] | | | | | [address] | | + + + + + | Marta Upton | ECON | [place] | | | | | [address] | | + + + + + Care Team Providers + +------+ + | Care Appliquer Zigzag Name | Role | Phone | + [...] | | | [facility] CLINIC [address] | [facility] | | | | | [facility] | [place] [address] | | | | | [place] [address] | [phone] | | | | | [phone] | | | +--------+ + + + [...] | | | | | [facility] [address] | | | | | | [phone] | | | | | | | | +--------+---------+ + + + documented as of this encounter Visit Diagnoses Not on filedocumented in this encounter"
--- OUTSIDE RECORDS SUMMARY | ~2019-06-13 | XMS | Encounter Summary ---
Demographics + + + | Address | [address] | | | [place] [address] | + + + | Home Phone | | + + + | Preferred Language | Unknown | + + + | Marital Status | | + + + | Tenriism Affiliation | Unknown | + + + | Race | Unknown | + + + | Ethnic Group | Unknown | + + + Author + + + | Author | [facility] | | | and [place]ardo[place] | + + + | Organization | [facility] | | | and [place]ardo[place] | + + + | Address | Unknown | + + + | Phone | Unavailable | + + + Support + + + + + | Name | Relationship | Address | Phone | + + + + + | Poncho Oquendo | ECON | [address] | | | | | [place] | | | | | [address] | | + + + + + | Marta Upton | ECON | [place] | | | | | [address] | | + + + + + Care Team Providers + +------+ + | Care Corner Bead Operator Name | Role | Phone | + +------+ + | Valeriy Carmona DO | PCP | | + +------+ + Encounter Details +--------+ + + + + | Date | Type | Department | Care Team | Description | +--------+ + + + + | 05/07/ | Orders Only | [facility] | Reinaldo, | Carcinoma of gall | | 2017 | | [facility] | Epifanio Soler MD [address] | bladder (HCC) | | | | [facility] [address] | [address] | (Primary Dx) | | | | [address] | [place] [address] | | | | | [place] [address] | [phone] | | | | | [phone] | | | +--------+ + + + [...] [facility] | | | | | | [place] [address] | | | | | | [phone] | | | | | | | | +--------+---------+ + + + documented as of this encounter Visit Diagnoses + + | Diagnosis | + + | 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
--- OUTSIDE RECORDS SUMMARY | ~2019-06-13 | XMS | Encounter Summary ---
Demographics + + + | Address | [address] | | | [place] [address] | + + + | Home Phone | | + + + | Preferred Language | Unknown | + + + | Marital Status | | + + + | Rastafarian Affiliation | Unknown | + + + | Race | Unknown | + + + | Ethnic Group | Unknown | + + + Author + + + | Author | [facility] | | | and Eduardo[place] | + + + | Organization | [facility] | | | and Eduardo[place] | + + + | Address | Unknown | + + + | Phone | Unavailable | + + + Support + + + + + | Name | Relationship | Address | Phone | + + + + + | Poncho Oquendo | ECON | [address] | | | | | [place] | | | | | [address] | | + + + + + | Marta Upton | ECON | [place] | | | | | [address] | | + + + + + Care Team Providers + +------+ + | Care Events Specialist Name | Role | Phone | + +------+ + | Valeriy Carmona DO | PCP | | + +------+ + Encounter Details +--------+ + + + + | Date | Type | Department | Care Team | Description | +--------+ + + + + | 07/05/ | Hospital | [facility] | Pedro Green, | | | 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 | [facility] | DO [address] | | | | | [address] | [place] [address] | | | | | [place], [place] | [phone] | | | | | [address] | | | | | | [phone] | | | +--------+ + + + [...] (none) Author Type: Registered Nurse Filed: 07/05/18 1994 Date of Service: 07/05/181540 Status: Signed Plastics Technician: Erika Lorenzana, RN (Registered Nurse) Discharge instructions, [...] TAI | | | | | | [place] [address] | | | | | | [phone] | | | | | | | [...]
--- OUTSIDE RECORDS SUMMARY | ~2019-06-13 | XMS | Encounter Summary ---
Demographics + + + | Address | [address] | | | [place] [address] | + + + | Home Phone [...] Author | [facility] | | | and Eduardo[place] | + + + | Organization | [facility] | | | and Eduardo[place] | + + + | Address | Unknown | + + + | Phone | Unavailable | + + + Support + + + + + | Name | Relationship | Address | Phone | + + + + + | Poncho Oquendo | ECON | [address] | | | | | [place] | | | | | [address] | | + + + + + | Marta Upton | ECON | [place] | | | | | [address] | | + + + + + Care Team Providers + +------+ + | Care Hay Stacker Name | Role | Phone | + +------+ + | Valeriy Carmona DO | PCP | | + +------+ + Encounter Details +--------+ + + + + | Date | Type | Department | Care Team | Description | +--------+ + + + + | 05/07/ | Documentati | [facility] | Reinaldo, | | | 2017 | on | MED CTR MED[facility] | Epifanio Soler MD [address] | | | | | [facility] [address] | | | | | [address] [place] | [place] [address] | | | | | [place] [address] | [phone] | | | | | [phone] | | | +--------+ + + + [...] THOMASTAI | | | | | | [place] [address] | | | | | | [phone] | | | | | | | | +--------+---------+ + + + documented as of this encounter Visit Diagnoses + + | Diagnosis | + + | Gallbladder cancer, 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
--- OUTSIDE RECORDS SUMMARY | ~2019-06-13 | XMS | Encounter Summary ---
Demographics + + + | Address | [address] | | | [place] [address] | + + + | Home Phone | | + + + | Preferred Language | Unknown | + + + | Marital Status | | + + + | Tenriism Affiliation | Unknown | + + + | Race | Unknown | + + + | Ethnic Group | Unknown | + + + Author + + + | Author | [facility] | | | and [place]ardo[place] | + + + | Organization | [facility] | | | and Eduardo[place] | + + + | Address | Unknown | + + + | Phone | Unavailable | + + + Support + + + + + | Name | Relationship | Address | Phone | + + + + + | Poncho Oquendo | ECON | [address] | | | | | [place] | | | | | [address] | | + + + + + | Marta Upton | ECON | [place] | | | | | [address] | | + + + + + Care Team Providers + +------+ + | Care Diesel Powerplant Supervisor Name | Role | Phone | + +------+ + | Valeriy Carmona DO | PCP | | + +------+ + Reason for Visit + + + | Reason | Comments | + + + | Pneumonia | | + + + Encounter Details +--------+ + + + + | Date | Type | Department | Care Team | Description | +--------+ + + + + | 08/04/ | Orders Only | [facility] | [facility], | Community acquired | | 2018 | | MED [facility] | Epifanio Soler MD [address] | pneumonia of right | | | | [facility] CL[facility] [address] | lower lobe of lung | | | | [address] [place] | [place] [address] | ([facility]) (Primary Dx) | | | | [place] [address] | [phone] | | | | | [phone] | | | +--------+ + + + [...] documented as of this encounter Progress Notes Johnathan Callahan RN - 08/04/2017 5:46 PM PDTVoicemail left with pt for callbackElectr onically signed by Johnathan Callahan RN at 08/05/2017 8:42 AM PDTdocumented in this enco unter Plan of Treatment +--------+---------+ + + + | Date | Type | Specialty | Care Team | Description | +--------+---------+ + + + | 09/17/ | Office | Urology | Pedro Green, | | | 2019 | Visit | | DO [address] | | | | | | [place] [address] | | | | | | [phone] | | | | | | | | +--------+---------+ + + + documented as of this encounter Visit Diagnoses + + | Diagnosis | + + | Community acquired pneumonia of right lower lobe of lung (HCC) - Primary | + + documented in this encounter"
--- OUTSIDE RECORDS SUMMARY | ~2019-06-13 | XMS | Encounter Summary ---
Demographics + + + | Address | [address] | | | [place] [address] | + + + | Home Phone [...] | Author | [facility] | | | and [place]ardo[place] | + + + | Organization | [facility] | | | and [place]ardo[place] | + + + | Address | Unknown | + + + | Phone | Unavailable | + + + Support + + + + + | Name | Relationship | Address | Phone | + + + + + | Poncho Oquendo | ECON | [address] | | | | | [place] | | | | | [address] | | + + + + + | Marta Upton | ECON | [place] | | | | | [address] | | + + + + + Care Team Providers + +------+ + | Care Record Systems Analyst Name | Role | Phone [...] + + | 07/03/ | Telephone | [facility] | Reinaldo, | Medication Question | | 2019 | | MED CTR MEDICAL | Epifanio Soler MD [address] | | | | | [facility] CL[facility] [address] | [facility] | | | | | [address] [facility] | [place] [address] | | | | | [place] [address] | [phone] | | | | | [phone] | | | +--------+ + + + [...] [address] | | | | | | [place] [address] | | | | | | [phone] | | | | | | | | +--------+---------+ + + + documented as of this encounter Visit Diagnoses Not on filedocumented in this encounter"
--- OUTSIDE RECORDS SUMMARY | ~2019-06-13 | XMS | Encounter Summary ---
Demographics + + + | Address | [address] | | | [place] [address] | + + + | Home Phone [...] + | Author | [facility] | | | and Eduardoana | + + + | Organization | [facility] | | | and Eduardo[place] | + + + | Address | Unknown | + + + | Phone | Unavailable | + + + Support + + + + + | Name | Relationship | Address | Phone | + + + + + | Poncho Oquendo | ECON | [address] | | | | | [place] | | | | | [address] | | + + + + + | Marta Upton | ECON | [place] | | | | | [address] | | + + + + + Care Team Providers + +------+ + | Care Primary Therapist Name | Role | Phone | + +------+ + | Valeriy Carmona DO | PCP | | + +------+ + Encounter Details +--------+ + + + + | Date | Type | Department | Care Team | Description | +--------+ + + + + | 05/13/ | Orders Only | [facility] | Marcelina Johnson, | | | 2017 | | MED CTR CHEMO | RN | | | | | INFUSION [address] | | | | | | [place], | | | | | | [place] [address] | | | | | | [phone] | | | +--------+ + + + [...] | | | | | [place] [address] | | | | | | [phone] | | | | | | | | +--------+---------+ + + + documented as of this encounter Visit Diagnoses Not on filedocumented in this encounter"
--- OUTSIDE RECORDS SUMMARY | ~2019-06-13 | XMS | Encounter Summary ---
Demographics + + + | Address | [address] | | | [place] [address] | + + + | Home Phone [...] | Author | [facility] | | | and [place]ardo[place] | + + + | Organization | [facility] | | | and Eduardo[place] | + + + | Address | Unknown | + + + | Phone | Unavailable | + + + Support + + + + + | Name | Relationship | Address | Phone | + + + + + | Poncho Oquendo | ECON | [address] | | | | | [place] | | | | | [address] | | + + + + + | Marta Upton | ECON | [place] | | | | | [address] | | + + + + + Care Team Providers + +------+ + | Care Bridge Expert Name | Role | Phone | + [...] | | Personal | Reinaldo, | [address] | | | | | 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, | [place], | | | | | 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 [address] | [place] [address] | | | | | neoplasm of | [address] | Phone: | | | | | other site | [place], | [phone] | | | | | in | [place] [address] | Fax: | | | | | gastrointest | Phone: | [phone] | | | | | inal tract | [phone] | | | | | | Procedures | Fax: | | | | | | CT Abdomen | [phone] | | | | | | Pelvis [...] + + | 09/25/ | Hospital | [facility] | [facility], | Personal history of | | 2013 | Encounter | MED CTR MEDICAL | Epifanio Soler MD [address] | malignant neoplasm | | | | [facility]Y CLINIC [address] | [address] | of other site in | | | | [facility] [place] [address] | gastrointestinal | | | | [place] [address] | [phone] | tract (Primary Dx); | | | | [phone] | | Chronic low back | | [...] Aura Upton is a 52-year-old woman from [place], [place] who h as 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 Tai Stanton of the [facility] April 28, 2012. ACTIVE DIAGNOSES: 1. Presentation with biliary colic in March of 2012 status post cholecystectomy and live r biopsy by Dr. Brandon Garcia March 29, 2012, pathological specimen [id number], analyzed by Dr. Bowers of [facility] and was notable for a poorly-differentiated adenoca rcinoma of the gallbladder. Liver biopsy demonstrated mild portal inflammation. 2. On April 28, 2012, she successfully underwent an R0 resection by Dr. Tai Stanton at [facility], pathological specimen [id number] was notable for the absence of any residual carcinoma within the gallbladder bed. However, 2/8 regional ly mph nodes contained regionally metastatic disease. 3. Consultation by Dr. Elva Grye of the [facility] on May returned the recommendation for adjuvant chemoradiation therapy following [id number] as follows: Capecitabine at 750 mg/m sq [...] [address] | | | | | | [place] [address] | | | | | | [phone] | | | | | | | [...] menstrual status. Dictated and Signed by: Mathieu Blas | | MD Anshu Electronically signed: 03/18/2014 [...] + | MISCELLANEOUS LAB | | | [phone] | + +---------+ + + | MISCELANIOUS LAB | | | [phone] | + +---------+ + + [place] [address], [...] Dr, | | | | | | [place] [address] | | | | + + + + + + + + | Specimen | + + | Blood specimen | | (specimen) | + + + + + + + | Performing | Address | City/State/Zipcode | Phone Number | | Organization | | | | + + + + + | [facility] | [address] | [place] [address] | [phone] | + + + + + CE[facility] [...] + | [facility] | [address] | [place], [place] | [phone] | | [facility] | | [address] | | | - LABORATORY | | | | + + + + + | [facility] | [address] | [place], [place] | | | [facility] | | [address] [place] [address] | | | - LABORATORY | | | | + + + + + Lactate Dehydrogenase (03/18/2014 11:04 AM PST) + +-------+ + + + | Component | Value | Ref Range | Performed | Pathologist | | | | | At | Signature | + +-------+ + + + | LDH TOTAL | 165 | 91 - 180 U/L | [facility] [...] + | [facility] | [address] | [place] | [phone] | | [facility] | | [address] | | | - LABORATORY | | | | + + + + + | [facility] | [address] | [place] | | | [facility] | | [address], [facility] | | | - LABORATORY [...] mL/min/1.73m2 | [facility] | | | [place] | RATE,ESTIMATED | | MEDICAL | | | | mL/min/1.78t4Jtig than | | CENTER - | | [...] + | [facility] | [address] | [place] | [phone] | | [facility] | | [address] | | | - LABORATORY | | | | + + + + + | [facility] | [address] | [place] | | | [facility] | | [address] | | | - LABORATORY | | | | + + + + + CBC w/ Auto Differential (03/18/2014 11:04 AM PST) + + + + + + | Component | Value | Ref Range | Performed | Pathologist | | | | | At | Signature | + + + + + + | WBC | 9.6 | 4.0 - 11.0 K/uL | [facility] | | | | | [facility] | | | | | | MEDICAL | | | | | | CENTER - | | | | | | LABORATORY | | + + + + + + | RBC | 4.94 | 3.70 - 5.20 | [...] | | | | | g/dL | [facility] | | | | [...] | | Lymphocytes | | K/uL | [facility] | [...] + | [facility] | [address] | [place], [place] | [phone] | | [facility] | | [address] | | | - LABORATORY | | | | + + + + + | [facility] | [address] | [place], [place] | | | [facility] | | [address], [facility] | | | - LABORATORY [...] + | [facility] | [address] | [place], [place] | [phone] | | [facility] | | [address] | | | - LABORATORY | | | | + + + + + | [facility] | [address] | [place] | | | [facility] | | [address], [facility] | | | - LABORATORY [...] | | | FILTRATION | mL/min/1.73m2 | [facility] | | | [place] | RATE,ESTIMATED | | MEDICAL | | | | mL/min/1.24w3Wsky than | | CENTER - | | [...] | 8.9 | 8.3 - 10.5 | [facility] | | | | | mg/dL | [facility] | | | | | | MEDICAL | | | | | | CENTER - | | | | | | LABORATORY | | + + + + + + | Albumin | 3.9 | 3.2 - 5.0 g/dL | [facility] [...] [address] | [place] | [phone] | | [facility] | | [address] | | | - LABORATORY | | | | + + + + + | [facility] | [address] | [place] | | | [facility] | | [address], [facility] | | | - LABORATORY [...] + | [facility] | [address] | [place], [place] | [phone] | | [facility] | | [address] | | | - LABORATORY | | | | + + + + + | [facility] | [address] | [place], [place] | | | [facility] | | [address], [facility] | | | - LABORATORY [...] [address] | [place] | [phone] | | [facility] | | [address] | | | - LABORATORY | | | | + + + + + | [facility] | [address] | [place], [place] | | | [facility] | | [address], [facility] | | | - LABORATORY [...] | | | | | | [place] [address] | | | | + + + + + + + + | Specimen | + + | Blood specimen | | (specimen) - Vein | + + + + + + + | Performing | Address | City/State/Zipcode | Phone Number | | Organization | | | | + + + + + | [facility] | [address] | [place] [address] | [phone] | + + + + + documented in this encounter Visit Diagnoses + + | Diagnosis | + + | Personal history of malignant neoplasm of other site in gastrointestinal tract - | | Primary | + + | Chronic low back pain Lumbago | + + documented in this encounter
--- OUTSIDE RECORDS SUMMARY | ~2019-06-13 | XMS | Encounter Summary ---
Demographics + + + | Address | [address] | | | [place] [address] | + + + | Home Phone | | + + + | Preferred Language | Unknown | + + + | Marital Status | | + + + | Judaism Affiliation | Unknown | + + + | Race | Unknown | + + + | Ethnic Group | Unknown | + + + Author + + + | Author | [facility] | | | and [place] | + + + | Organization | [facility] | | | and [place] | + + + | Address | Unknown | + + + | Phone | Unavailable | + + + Support + + + + + | Name | Relationship | Address | Phone | + + + + + | Poncho Oquendo | ECON | [address] | | | | | [facility] [address] [place] | | | | | [address] | | + + + + + | Marta Upton | ECON | [place], [place] | | | | | [address] | | + + + + + Care Team Providers + +------+ + | Care Earth Science Teacher Name | Role | Phone | + +------+ + PCP | Unavailable | + +------+ + Encounter Details +--------+ + + + + | Date | Type | Department | Care Team | Description | +--------+ + + + + | 09/28/ | Hospital | [facility] | Hakan Cherry | | | 2011 | Encounter | MED CTR XRAY [address] | [address] | | | | [place] | [place], [place] | | | | | [place] [address] | [address] | | | | | [phone] | | | +--------+ + + + [...] | Visit | | DO [address] [facility] | | | | | | [place] [address] | | | | | | [phone] | | | | | | | | +--------+---------+ + + + documented as of this encounter Procedures + +--------+ + + + | Procedure Name | Priori | Date/Time | Associated Diagnosis | Comments | | | ty | | | | + +--------+ + + + | FL FACET INJECTION | | 09/29/2011 | | Results for this | | | | 11:02 AM | | procedure are in the | | | | PDT | | results section. | + +--------+ + + + documented in this encounter Results FL Facet Injection (09/29/2011 11:02 AM PDT) + + | Specimen | + + | | + + + + + | Narrative | Performed At | + + + | [facility] Diagnostic Imaging Department | [facility] | | [address] [facility] | [facility] | | 09/29/2011, LUMBAR FACET | DIAG IMG | | INJECTIONS CLINICAL HISTORY: ICD-9 code is 721.2, lumbar | | | spondylosis. Ms. Aura Upton presents to the fluoroscopy | | | suite for a fluoroscopically guided bilateral L4-L5 facet injections | | | as part of conservative management for chronic pain and lumbar | | | spondylosis. After informed consent was obtained, the patient | | | lay in the prone position on the fluoroscopy table. The areas were | | | identified under fluoroscopic guidance. The areas were prepped | | | and draped in a sterile fashion. A 25-gauge 1-1/2 inch needle was | | | inserted into each region and approximately 3 mL of buffered 1% | | | lidocaine was infused, then a 22 gauge spinal needle was advanced into | | | the superior portion of each facet and under fluoroscopic guidance | | | confirmation into the joint spaces was obtained with infusion of | | | approximately 0.5 mL of Isovue contrast which showed outline of the | | | facet joints, then a combination of 1 mL of 1% lidocaine and 1 ml of | | | 40 mg/mL of Kenalog was infused, divided between 2 sides. The | | | patient tolerated the procedure well without complications. Pre | | | and post procedure blood pressures were stable. The patient was | | | given verbal as well as written follow-up instructions. Prior to | | | the start of the procedure the following were performed and verified | | | including correct patient identity, correct site/side marked and | | | visible, agreement of the procedure to be done, correct patient | | | positioning and an accurate procedure consent form. Any safety | | | precautions based on clinical history and/or medications have been | | | addressed. I personally performed the procedure above. | | | Dictated Date/Time: 09/30/2011 06:52 Transcribed Date/Time: | | | 09/30/2011 07:23 Boat Mechanic: <Electronically Signed | | | by Hakan Cherry MD> 10/01/11 0936 | | + + + + + | Procedure Note | + + | Edmundo, Rad Conversion - 03/23/2013 5:52 PM [facility] | | Diagnostic Imaging Department | | [address] [facility] | | | | | | | | 09/29/2011, LUMBAR FACET INJECTIONS | | | | CLINICAL HISTORY: ICD-9 code is 721.2, lumbar spondylosis. | | | | Ms. Aura Upton presents to the fluoroscopy suite for a fluoroscopically | | guided bilateral L4-L5 facet injections as part of conservative management for | | chronic pain and lumbar spondylosis. | | | | After informed consent was obtained, the patient lay in the prone position on | | the fluoroscopy table. The areas were identified under fluoroscopic guidance. | | The areas were prepped and draped in a sterile fashion. A 25-gauge 1-1/2 inch | | needle was inserted into each region and approximately 3 mL of buffered 1% | | lidocaine was infused, then a 22 gauge spinal needle was advanced into the | | superior portion of each facet and under fluoroscopic guidance confirmation | | into the joint spaces was obtained with infusion of approximately 0.5 mL of | | Isovue contrast which showed outline of the facet joints, then a combination of | | 1 mL of 1% lidocaine and 1 ml of 40 mg/mL of Kenalog was infused, divided | | between 2 sides. The patient tolerated the procedure well without | | complications. Pre and post procedure blood pressures were stable. The | | patient was given verbal as well as written follow-up instructions. | | | | Prior to the start of the procedure the following were performed and verified | | including correct patient identity, correct site/side marked and visible, | | agreement of the procedure to be done, correct patient positioning and an | | accurate procedure consent form. Any safety precautions based on clinical | | history and/or medications have been addressed. | | | | I personally performed the procedure above. | | | | Dictated Date/Time: 09/30/2011 06:52 | | Transcribed Date/Time: 09/30/2011 07:23 | | Boat Mechanic: | | <Electronically Signed by Hakan Cherry MD> 10/01/11 0936 | + + + +---------+ + + | Performing | Address | City/State/Zipcode | Phone Number | | Organization | | | | + +---------+ + + | [place] | | | | | [employer] | | | | + +---------+ + + documented in this encounter Visit Diagnoses Not on filedocumented in this encounter"
--- OUTSIDE RECORDS SUMMARY | ~2019-06-13 | XMS | Encounter Summary ---
Demographics + + + | Address | [address] | | | [place] [address] | + + + | Home Phone [...] | Author | [facility] | | | and Eduardoana | + + + | Organization | [facility] | | | and Eduardoana | + + + | Address | Unknown | + + + | Phone | Unavailable | + + + Support + + + + + | Name | Relationship | Address | Phone | + + + + + | Poncho Oquendo | ECON | [address] | | | | | [place] | | | | | [address] | | + + + + + | Marta Upton | ECON | [place] | | | | | [address] | | + + + + + Care Team Providers + +------+ + | Care Auditing Specialist Name | Role | Phone | [...] 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, | [place]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 | MD [address] | [place], | | | | | (HCC) | [address] | [place] [address] | | | | | Procedures | [place], | Phone: | | | | | [place] INJ | [place] [address] | [phone] | | | | | PEMBROLIZUMA | Phone: | Fax: | | | | | B, [address] [place] | [phone] | [phone] | | | | | NORMAL | Fax: | | | | | | SALINE | [phone] | | | | | | SOLUTION | | | | | | | INFUS, 500 | | | | | | | ML ME | | | | | | | NORMAL | | | | | | | SALINE | | | | | | | SOLUTION | | | | | | | INFUS, 250 | | | | | | | ML ME | | | | | | | STERILE | | | | | | | WATER/SALINE | | | | | | | , 10 ML ME | | | | | | | CHEMOTHER, | | | | | | | IV PUSH,EA | | | | | | | ADD DRUG ME | | | | | | | CHEMOTHER, | | | | | | | IV INFUSION, | | | | | | | 1 HR ME | | | | | | | CHEMOTHER, | | | | | | | IV INFUSION, | | | | | | | EA HR ME | | | | | | | CHEMOTHER,NO | | | | | | | N-HORMONE | | | | | | | ANTI-NEOPL, | | | | | | | SUB-Q/IM ME | | | | | | | [...] + + | 02/02/ | Hospital | [facility] | Reinaldo, | Gallbladder cancer, | | 2017 | Encounter | MED CTR CHEMO | Epifanio Soler MD [address] | carcinoma (HCC) | | | | INFUSION [address] | [address] [place] | | | | | [place], | [place] [address] | | | | | [place] [address] | [phone] | | | | | [phone] | | | +--------+ + + + [...] [address] | | | | | | [place] [address] | | | | | | [phone] | | | | | | | [...] + + | Performed at: 01 - [facility] [address], | REFERENCE LAB | | [place], [place] [id number] Transport Company Manager: Ad Larose MD, Phone: | [facility] | | [phone] | | + + + + + + + + | Performing | Address | City/State/Zipcode | Phone Number | | Organization | | | | + + + + + | REFERENCE LAB | [address] | [place], [place] | [phone] | | [facility] | [facility] | [address] | | + + + + + [...] | + + + + + | [address] | [address] | [place] | [phone] | | [facility] | | [address] | | | - LABORATORY | | [...] [address] | [place] | [phone] | | [facility] | | [address] | | | - LABORATORY | | [...] 1.47 (H) | 0.60 - 1.30 | [facility] | | | | | mg/dL [...] mL/min/1.73m2 | [facility] | | | IRAQI | RATE,ESTIMATED | | MEDICAL | | | | mL/min/1.25o0Wmkz than | | CENTER - | | [...] | + + + + + | [address] | [address] | [place] | [phone] | | [facility] | | [address] | | | - LABORATORY | | [...] + | [address] | [address] | [place] | [phone] | | [facility] | | [address] | | | - LABORATORY | | [...] [address] | [place] | [phone] | | [facility] | | [address] | | | - LABORATORY | | [...]
--- OUTSIDE RECORDS SUMMARY | ~2019-06-13 | XMS | Encounter Summary ---
Demographics + + + | Address | [address] | | | [place] [address] | + + + | Home Phone | | + + + | Preferred Language | Unknown | + + + | Marital Status | | + + + | Congregation Affiliation | Unknown | + + + | Race | Unknown | + + + | Ethnic Group | Unknown | + + + Author + + + | Author | [facility] | | | and Eduardoana | + + + | Organization | [facility] | | | and Eduardoana | + + + | Address | Unknown | + + + | Phone | Unavailable | + + + Support + + + + + | Name | Relationship | Address | Phone | + + + + + | Poncho Oquendo | ECON | [address] | | | | | [place] | | | | | [address] | | + + + + + | Marta Upton | ECON | [place] | | | | | [address] | | + + + + + Care Team Providers + +------+ + | Care Hyperbaric Technician Name | Role | Phone | [...] | | Personal | Reinaldo, | [place] | | | | | 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, | [place], | | | | | 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 [address] | [place] [address] | | | | | neoplasm of | [address] | Phone: | | | | | other site | [place], | [phone] | | | | | in | [place] [address] | Fax: | | | | | gastrointest | Phone: | [phone] | | | | | inal tract | [phone] | | | | | | Procedures | Fax: | | | | | | CT Abdomen | [phone] | | | | | | Pelvis [...] | | Personal | Reinaldo, | [place] | | | | | 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, | [place], | | | | | 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 [address] | [place] [address] | | | | | neoplasm of | [address] | Phone: | | | | | other site | [place], | [phone] | | | | | in | [place] [address] | Fax: | | | | | gastrointest | Phone: | [phone] | | | | | inal tract | [phone] | | | | | | Procedures | Fax: | | | | | | CT Abdomen | [phone] | | | | | | Pelvis w | | | | | | | Contrast | | | +--------+--------+ + + + + Encounter Details +--------+ + + + + | Date | Type | Department | Care Team | Description | +--------+ + + + + | 03/18/ | Hospital | [facility] | Reinaldo, | Personal history of | | 2015 | Encounter | MED CTR CT [address] | Epifanio Soler MD [address] | malignant neoplasm | | | | [place], | [address] [place] | of other site in | | | | [place] [address] | [place] [address] | gastrointestinal | | | | [phone] | [phone] | tract | | | | | [...] [address] | | | | | | [place] [address] | | | | | | [phone] | | | | | | | [...] + | MISCELLANEOUS LAB | | | [phone] | + +---------+ + + | MISCELANIOUS LAB | | | [phone] | + +---------+ + + documented in [...]
--- OUTSIDE RECORDS SUMMARY | ~2019-06-13 | XMS | Encounter Summary ---
Demographics + + + | Address | [address] | | | [place] [address] | + + + | Home Phone [...] + | Author | [facility] | | | and Eduardoana | + + + | Organization | [facility] | | | and Eduardoana | + + + | Address | Unknown | + + + | Phone | Unavailable | + + + Support + + + + + | Name | Relationship | Address | Phone | + + + + + | Poncho Oquendo | ECON | [address] | | | | | [place] | | | | | [address] | | + + + + + | Marta Upton | ECON | [place] | | | | | [address] | | + + + + + Care Team Providers + +------+ + | Care Medical Records Auditor Name | Role | Phone | + [...] | ONCOLOGY CLINIC [address] | [facility] | | | | | [facility] | [place] [address] | | | | | [place] [address] | [phone] | | | | | [phone] | | | +--------+ + + + [...] | | | | | [place] [address] | | | | | | [phone] | | | | | | | | +--------+---------+ + + + documented as of this encounter Visit Diagnoses Not on filedocumented in this encounter"
--- OUTSIDE RECORDS SUMMARY | ~2019-06-13 | XMS | Encounter Summary ---
Demographics + + + | Address | [address] | | | [place] [address] | + + + | Home Phone | | + + + | Preferred Language | Unknown | + + + | Marital Status | Single | + + + | Yazidism Affiliation | NON | + + + [...] Team Providers + +------+ + | Care Casino Runner Name | Role | Phone | + +------+ + | Tomasa Wagner | PCP | | + +------+ + Reason for Visit + + + | Reason | Comments | + + + | Scheduling | | + + + | Returning Phone Call | | + + + Encounter Details +--------+ + + + + | Date | Type | Department | Care Team | Description | +--------+ + + + + | 06/24/ | Telephone | Digestive Health | Tai Stanton, | Scheduling; | | 2014 | | Center at [facility] [address] | [address] | Returning Phone Call | | | | [facility] | [facility] | | | | | [facility] and | [place], [place] | | | | | [place] [address] | [address] | | | | | [place], [place] | [phone] | | | | | [address] | | | | | | [phone] | | | +--------+ + + + [...]
--- OUTSIDE RECORDS SUMMARY | ~2019-06-13 | XMS | Encounter Summary ---
Demographics + + + | Address | [address] | | | [place] [address] | + + + | Home Phone | | + + + | Preferred Language | Unknown | + + + | Marital Status | | + + + | Druze Affiliation | Unknown | + + + | Race | Unknown | + + + | Ethnic Group | Unknown | + + + Author + + + | Author | [facility] | | | and Eduardoana | + + + | Organization | [facility] | | | and Eduardoana | + + + | Address | Unknown | + + + | Phone | Unavailable | + + + Support + + + + + | Name | Relationship | Address | Phone | + + + + + | Poncho Oquendo | ECON | [address] | | | | | [facility] [place] | | | | | [address] | | + + + + + | Marta Upton | ECON | [place], [place] | | | | | [address] | | + + + + + Care Team Providers + +------+ + | Care Teamsite Developer Name | Role | Phone | [...] + + | 05/01/ | Telephone | [facility] | Reinaldo, | Other | | 2013 | | MED CTR MEDICAL | Epifanio Soler MD [address] | | | | | ONCOLOGY CLINIC [address] | [address] | | | | | [place] | [place] [address] | | | | | [place] [address] | [phone] | | | | | [phone] | | | +--------+ + + + [...] | | | | | [place] [address] | | | | | | [phone] | | | | | | | | +--------+---------+ + + + documented as of this encounter Visit Diagnoses Not on filedocumented in this encounter"
--- OUTSIDE RECORDS SUMMARY | ~2019-06-13 | XMS | Encounter Summary ---
Demographics + + + | Address | [address] | | | [place] [address] | + + + | Home Phone [...] Providers + +------+ + | Care Installation Superintendent Name | Role | Phone | + [...] Center at H2 [address] | [address] [facility] | carcinoma (HCC) | | | | [facility] | [address] | (Primary Dx) | | | | for Health and | [place], [place] | | | | | [facility], [facility] [address] | [address] | | | | | [place], [place] | [phone] | | | | | [address] | | | | | | [phone] | | | +--------+---------+ + + + [...] the resident s note. Tai Stanton M.D. [facility] ([facility]) Professor and Vice-Boatswain'S Mate of Surgery [employer] [facility] for Pancreatic Disease Research Pancreatic/ HepatoBiliary and Foregut Working Groups Mail Code L223A [address] [place], [place]. [address] email: [email or web address] Gary Marrero MD - 05/17/2012 [...] probing. Packed with 1/4 in g auze. Christine removed, steristrips placed. Extremities: WWP, no significant [...] GARY DONOHUE MD General Surgery, R2 Pg. 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
--- OUTSIDE RECORDS SUMMARY | ~2019-06-13 | XMS | Encounter Summary ---
Demographics + + + | Address | [address] | | | [place] [address] | + + + | Home Phone [...] Team Providers + +------+ + | Care Roofing Superintendent Name | Role | Phone | + +------+ + | Tomasa Wagner | PCP | | + +------+ + Encounter Details +--------+ + + + + | Date | Type | Department | Care Team | Description | +--------+ + + + + | 10/27/ | Abstract | Digestive Health | Tai Stanton, | | | 2012 | | Center at [facility] [address] | [address] | | | | | HIEN [facility] | [facility] | | | | | for Health and | [place], [place] | | | | | [facility] [place] [address] | [address] | | | | | [place], [place] | [phone] | | | | | [address] | | | | | | [phone] | | | +--------+ + + + [...]
--- OUTSIDE RECORDS SUMMARY | ~2019-06-13 | XMS | Encounter Summary ---
Demographics + + + | Address | [address] | | | [place] [address] | + + + | Home Phone [...] | Author | [facility] | | | and Eduardoana | + + + | Organization | [facility] | | | and Eduardoana | + + + | Address | Unknown | + + + | Phone | Unavailable | + + + Support + + + + + | Name | Relationship | Address | Phone | + + + + + | Poncho Oquendo | ECON | [address] | | | | | [facility] [place] [place] | | | | | [address] | | + + + + + | Marta Upton | ECON | [place], [place] | | | | | [address] | | + + + + + Care Team Providers + +------+ + | Care Power Lineman Technician Name | Role | Phone | + +------+ + | No, Physician | PCP | Unavailable | + +------+ + Encounter Details +--------+ + + + + | Date | Type | Department | Care Team | Description | +--------+ + + + + | 04/22/ | Preadmit | [facility] | | | | 2019 | Visit | REGIONAL SURGERY | | | | | | CENTER PREADMISSION | | | | | | [facility] [address] | | | | | | [place] | | | | | | [address] | | | | | | [phone] | | | +--------+ + + + [...] [place] | | | | | | [place] [address] | | | | | | [phone] | | | | | | | | +--------+---------+ + + + documented as of this encounter Visit Diagnoses Not on filedocumented in this encounter
--- OUTSIDE RECORDS SUMMARY | ~2019-06-13 | XMS | Encounter Summary ---
Demographics + + + | Address | [address] | | | [place] [address] | + + + | Home Phone [...] + + | Author | [facility] | | | and Eduardoana | + + + | Organization | [facility] | | | and Eduardoana | + + + | Address | Unknown | + + + | Phone | Unavailable | + + + Support + + + + + | Name | Relationship | Address | Phone | + + + + + | Poncho Oquendo | ECON | [address] | | | | | [facility] [place] | | | | | [address] | | + + + + + | Marta Upton | ECON | [place], [place] | | | | | [address] | | + + + + + Care Team Providers + +------+ + | Care Eeo Officer Name | Role | Phone | + +------+ + | No, Physician | PCP | Unavailable | + +------+ + Encounter Details +--------+ + + + + | Date | Type | Department | Care Team | Description | +--------+ + + + + | 04/26/ | Anesthesia | [facility] | [place] | | | 2019 | Event | REGIONAL SURGERY | [address] | | | | | CENTER INTRA OP | [place] | | | | | [address] | [place] [address] | | | | | [place], [place] | [phone] | | | | | [address] | | | | | | [phone] | | | +--------+ + + + [...] [address] | | eral | Forearm; gczf-usv-ucdanz catheter | Jamila [place], | Cindy Casarez [...] [address] | | | | | | [place] [address] | | | | | | [phone] | | | | | | | [...] dioxide detection | | | Performing provider: [place] CRNA Authorizing provider: | | | [...]
--- OUTSIDE RECORDS SUMMARY | ~2019-06-13 | XMS | Encounter Summary ---
Demographics + + + | Address | [address] | | | [place] [address] | + + + | Home Phone [...] Author | [facility] | | | and Eduardoana | + + + | Organization | [facility] | | | and Eduardoana | + + + | Address | Unknown | + + + | Phone | Unavailable | + + + Support + + + + + | Name | Relationship | Address | Phone | + + + + + | Poncho Oquendo | ECON | [address] | | | | | [facility] [place] | | | | | [address] | | + + + + + | Marta Upton | ECON | [place] | | | | | [address] | | + + + + + Care Team Providers + +------+ + | Care Director Of Research Center Name | Role | Phone | + [...] + + + + | 11/29/ | Anesthesia | [facility] | Roger Callaway MD | | | 2018 | [facility] | [address] | | | | | OPERATING ROOM [address] | [place] [address] | | | | | [address] | [phone] | | | | | [place], [place] | | | | | | [address] | Cass Harris, | | | | | [phone] | MD [address] | | | | | | [place] [address] | | | | | | [phone] | | | | | | | | +--------+ + + + + Anesthesia Record + + + + + | Procedure Name | Responsible | Anesthesia Start | Anesthesia Stop Time | | | Anesthesiologist | Time | | + + + + + | CYSTOSCOPY URETERAL | Roger Callaway MD | 11/29/18 1329 | 11/29/18 1407 | | STENT stent removal | | | | | and replacement | | | | | (Left Ureter) | | | | + + + + + +----+---+ + + | Da | T | Event | Comment | | te | i | | | | | m | | | | | e | | | +----+---+ + + | 10 | 1 | | | | /1 | 3 | | | | 6/ | 1 | | | | 20 | 7 | | | | 19 | | | | +----+---+ + + | | 1 | An Start | Reassessment prior to anesthesia induction/procedure. | | | 3 | | | | | 2 | | | | | 9 | | | +----+---+ + + | | 1 | Quick Note | Pt to [place] Assessed No change from pre-op | | | 3 | | | | | 3 | | | | | 0 | | | +----+---+ + + | | 1 | An | | | | 3 | Induction | | | | 3 | | | | | 3 | | | +----+---+ + + | | 1 | An | | | | 3 | Intubation | | | | 3 | | | | | 5 | | | +----+---+ + + | | 1 | Antibiotic | | | | 3 | Given | | | | 3 | | | | | 6 | | | +----+---+ + + | | 1 | First | | | | 3 | Inc/Proc St | | | | 4 | | | | | 5 | | | +----+---+ + + | | 1 | an stop | | | | 4 | data | | | | 0 | | | | | 4 | | | +----+---+ + + | | 1 | An Stop | Patient handed off to recovery nurse. | | | 0 | | | | | 9 | | | +----+---+ + + +------+ | Meds | +------+ + +--------+ | Name | Total | + +--------+ | midazolam 2 mg/mL | 2 mg | + +--------+ | lidocaine 2% | 60 mg | + +--------+ | propofol | 170 mg | + +--------+ | cefTRIAXone (ROCEPHIN) IVPB 2 g | 2 g | + +--------+ | balanced electrolytes in water | 600 mL | | (PLASMALYTE-148/NORMOSOL-R) | | | infusion | | + +--------+ + + | Name | + + | N2O Flow Rate (L/Min) | + + | O2 Flow Rate (L/Min) | + + | Insp O2 | + + | Exp N2O | + + | Exp SEV | + + | Air Flow Rate (L/Min) | + + + + | No [...] | 11/29/18; 1427; Incision; groin | 11/29/18 142 by | | | | | Sugar Chase RN | | +--------+ + + + | Periph | 11/29/18; 1220; Left; Hand; | 11/29/18 1220 by | 11/29/18 1550 by | | eral | [id number]-avr-[id number] catheter system; | Kim Denson RN | Nikky Guallpa RN | | IV | 20 gauge; expected removal post | | | | | discharge; 11/29/18; 1550 | | | +--------+ + + + | Airway | Placement Date: 11/29/18; | 11/29/18 1335 by | 11/29/18 1552 by | | | Placement Time: 1335; Mask | Cass Marquezvikash, | Nikky Guallpa RN | | | Ventilation: EZ; Airway Type: | MD | | | | laryngeal mask; Size: 4; Removal | | | | | Date: 11/29/18; Removal Time: | | | | | 1552 (Not present upon arrival to | | | | | Phase 2) | | | +--------+ + + + documented in this encounter Social History + +-------+ +--------+------+ | Tobacco [...] VD | | | | | | [place] [address] | | | | | | [phone] | | | | | | | [...] +---+---+ | | | +---+---+ + +-------+ +-----+---+---+ | cefTRIAXone (ROCEPHIN) IVPB 2 g | Given | 11/30/19 | 2 g | | | | 2 g, Intravenous, Administer | | 19 1:31 | | | | | over 30 Minutes, Prior to | | PM PDT | | | | | Incision, Starting 11/29/18 | | | | | | | at 1225, For 1 dose, Keep in | | | | | | | refrigerator., Pre-op, | | | | | | | Indications: Surgical Prophylaxis | | | | | | + +-------+ +-----+---+---+ +---+---+ | | | +---+---+ + +-------+ +-------+---+---+ | lidocaine (PF) 2% injection | Given | 11/30/19 | 60 mg | | | | Intravenous, PRN, Starting Wed | | 19 1:33 | | | | | 10/16/19 at 1333, Anesthesia | | PM PDT | | | | | Intra-op | | | | | | + +-------+ +-------+---+---+ +---+---+ | | | +---+---+ + +-------+ +------+---+---+ | midazolam (VERSED) 1 mg/mL | Given | 11/30/19 | 2 mg | | | | injection Intravenous, PRN, | | 19 1:27 | | | | | Starting 11/29/18 at 1327, | | PM PDT | | | | | Anesthesia Intra-op | | | | | | + +-------+ +------+---+---+ +---+---+ | | | +---+---+ + +-------+ +-------+---+---+ | propofol (DIPRIVAN) injection | Given | 11/30/19 | 20 mg | | | | Intravenous, PRN, Starting Wed | | 19 2:01 | | | | | 11/29/18 at 1333, Anesthesia | | PM PDT | | | | | Intra-op | | | | | | + +-------+ +-------+---+---+ +-------+ +--------+---+---+ | Given | 11/30/19 | 150 mg | | | | | 19 1:33 | | | | | | PM PDT | | | | +-------+ +--------+---+---+ +---+---+ | | | +---+---+ documented in this encounter"
--- OUTSIDE RECORDS SUMMARY | ~2019-06-13 | XMS | Encounter Summary ---
Demographics + + + | Address | [address] | | | [place] [address] | + + + | Home Phone [...] + | Author | [facility] | | | and Eduardoana | + + + | Organization | [facility] | | | and Eduardoana | + + + | Address | Unknown | + + + | Phone | Unavailable | + + + Support + + + + + | Name | Relationship | Address | Phone | + + + + + | Poncho Oquendo | ECON | [address] | | | | | [facility] [place] | | | | | [address] | | + + + + + | Marta Upton | ECON | [place], [place] | | | | | [address] | | + + + + + Care Team Providers + +------+ + | Care Back Roll Lathe Operator Name | Role | Phone | + +------+ + | No, Physician | PCP | Unavailable | + +------+ + Encounter Details +--------+ + + + + | Date | Type | Department | Care Team | Description | +--------+ + + + + | 09/17/ | Hospital | [facility] | | | | 2013 | Encounter | MED CTR XRAY [address] | | | | | | [place] | | | | | | [place] [address] | | | | | | [phone] | | | +--------+ + + + [...] | | | | | [place] [address] | | | | | | [phone] | | | | | | | | +--------+---------+ + + + documented as of this encounter Visit Diagnoses Not on filedocumented in this encounter"
--- OUTSIDE RECORDS SUMMARY | ~2019-06-13 | XMS | Encounter Summary ---
Demographics + + + | Address | [address] | | | [place] [address] | + + + | Home Phone | | + + + | Preferred Language | Unknown | + + + | Marital Status | | + + + | Scientology Affiliation | Unknown | + + + | Race | Unknown | + + + | Ethnic Group | Unknown | + + + Author + + + | Author | [facility] | | | and Eduardoana | + + + | Organization | [facility] | | | and Eduardoana | + + + | Address | Unknown | + + + | Phone | Unavailable | + + + Support + + + + + | Name | Relationship | Address | Phone | + + + + + | Poncho Oquendo | ECON | [address] | | | | | [place] | | | | | [address] | | + + + + + | Marta Upton | ECON | [place] | | | | | [address] | | + + + + + Care Team Providers + +------+ + | Care Upper Inspector Name | Role | Phone | [...] 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, | [place]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 | MD [address] | [place], | | | | | (HCC) | [address] | [place] [address] | | | | | Procedures | [place], | Phone: | | | | | [place] | [place] [address] | [phone] | | | | | ONDANSETRON | Phone: | Fax: | | | | | HCL | [phone] | [phone] | | | | | INJECTION, 1 | Fax: | | | | | | [place] | [phone] | | | | | | DEXAMETHASON | | | | | | | E SODIUM | | | | | | | PHOS, 1 MG | | | | | | | [place] | | | | | | | DIPHENHYDRAM | | | | | | | INE HCL | | | | | | | INJECTIO, 50 | | | | | | | MG [place] | | | | | | | FOSAPREPITAN | | | | | | | T INJECTION, | | | | | | | 1 MG [place] | | | | | | | EPOETIN | | | | | | | JJ, | | | | | | | NON-ESRD, | | | | | | | 1000 UNITS | | | | | | | [place] CISPLATIN | | | | | | | 10 MG | | | | | | | INJECTION | | | | | | | [place] | | | | | | | GEMCITABINE | | | | | | | HCL | | | | | | | INJECTION, | | | | | | | 200 MG [place] | | | | | | | LORAZEPAM | | | | | | | INJECTION, 2 | | | | | | | [place] | | | | | | | METHYLPREDNI | | | | | | | SOLONE | | | | | | | INJECTION, | | | | | | | 125 MG [place] | | | | | | | NORMAL | | | | | | | SALINE | | | | | | | SOLUTION | | | | | | | INFUS, 500 | | | | | | | ML [place] | | | | | | | NORMAL | | | | | | | SALINE | | | | | | | SOLUTION | | | | | | | INFUS, 250 | | | | | | | ML [place] | | | | | | | STERILE | | | | | | | WATER/SALINE | | | | | | | , 10 ML [place] | | | | | | | CHEMOTHER, | | | | | | | IV PUSH,EA | | | | | | | ADD DRUG [place] | | | | | | | CHEMOTHER, | | | | | | | IV INFUSION, | | | | | | | 1 HR [place] | | | | | | | CHEMOTHER, | | | | | | | IV INFUSION, | | | | | | | EA HR [place] | | | | | | | CHEMOTHER,NO | | | | | | | N-HORMONE | | | | | | | ANTI-NEOPL, | | | | | | | SUB-Q/IM [place] | | | | | | | [...] + + | 11/22/ | Hospital | [facility] | Vladimir Robles, | Gallbladder cancer, | | 2015 | Encounter | MED CTR CHEMO | MD [address] | carcinoma (HCC) | | | | INFUSION [address] [place], | (Primary Dx) | | | | [place], | [place] [address] | | | | | [place] [address] | [phone] | | | | | [phone] | | | +--------+ + + + [...] [address] | | | | | | [place] [address] | | | | | | [phone] | | | | | | | [...] | | | | | | [place] [address] | | | | + + + [...] [address] | [place] [address] | [phone] | + + + + + [place] [...] + | [address] | [address] | [place] | [phone] | | [facility] | | [address] | | | - LABORATORY | | [...] [address] | [place] | [phone] | | [facility] | | [address] | | | - LABORATORY | | [...] mL/min/1.73m2 | [facility] | | | [place] | RATE,ESTIMATED | | MEDICAL | | | | mL/min/1.93j5Ptgw than | | CENTER - | | [...] | 8.7 | 8.3 - 10.5 | [facility] | | | | | mg/dL | [...] + | [address] | [address] | [place] | [phone] | | [facility] | | [address] | | | - LABORATORY | | [...] [address] | [place] | [phone] | | [facility] | | [address] | | | - LABORATORY | | [...]
--- OUTSIDE RECORDS SUMMARY | ~2019-06-13 | XMS | Encounter Summary ---
Demographics + + + | Address | [address] | | | [place] [address] | + + + | Home Phone [...] | Author | [facility] | | | and Eduardoana | + + + | Organization | [facility] | | | and Eduardoana | + + + | Address | Unknown | + + + | Phone | Unavailable | + + + Support + + + + + | Name | Relationship | Address | Phone | + + + + + | Poncho Oquendo | ECON | [address] | | | | | [facility] [place] | | | | | [address] | | + + + + + | Marta Upton | ECON | [place], [place] | | | | | [address] | | + + + + + Care Team Providers + +------+ + | Care Student Success Advisor Name | Role | Phone | + +------+ + PCP | Unavailable | + +------+ + Encounter Details +--------+ + + + + | Date | Type | Department | Care Team | Description | +--------+ + + + + | 07/15/ | Hospital | [facility] | | | | 2000 | Encounter | MED CTR GENERIC OP | | | | | | CONV DEPT [address] | | | | | | [place], | | | | | | [place] [address] | | | | | | [phone] | | | +--------+ + + + [...] | | | | | [place] [address] | | | | | | [phone] | | | | | | | | +--------+---------+ + + + documented as of this encounter Visit Diagnoses Not on filedocumented in this encounter"
--- OUTSIDE RECORDS SUMMARY | ~2019-06-13 | XMS | Encounter Summary ---
Demographics + + + | Address | [address] | | | [place] [address] | + + + | Home Phone | | + + + | Preferred Language | Unknown | + + + | Marital Status | Single | + + + | Uatsdin Affiliation | NON | + + + [...] Team Providers + +------+ + | Care Pmo Business Analyst Name | Role | Phone | [...] (HCC) | Surendra Carreon | [address] [facility] | | | | | Procedures | Rd | Hospital, | | | | | CT CHEST, | [place], [place] | 10th Floor | | | | | ABDOMEN & | [address] | [place], [place] | | | | | [address] | Phone: | [phone] | | | | | CONTRAST | [phone] | Phone: | | | | | [address], [address] | Fax: | [phone] | | | | | | [phone] | Fax: | | | | | | | [phone] | +--------+--------+ + + + + Reason [...] | | | | CT CHEST, | [place], [place] | 10th Floor | | | | | ABDOMEN & | | [place], [place] | | | | | PELVIS [address] IV | Phone: | [phone] | | | | | CONTRAST | [phone] | Phone: | | | | | [address], [address] | Fax: | [phone] | | | | | | [phone] | Fax: | | | | | | | [phone] | +--------+--------+ + + + + Encounter Details +--------+ + + + + | Date | Type | Department | Care Team | Description | +--------+ + + + + | 04/12/ | Hospital | Radiology/Imaging | | | | 2012 | Encounter | Lab at [facility] [address] | | | | | | [facility] | | | | | | for Health and | | | | | | Healing, [address], | | | | | | 3rd Floor | | | | | | [place], [place] | | | | | | [address] | | | | | | [phone] | | | +--------+ + + + [...]
--- OUTSIDE RECORDS SUMMARY | ~2019-06-13 | XMS | Encounter Summary ---
Demographics + + + | Address | [address] | | | [place] [address] | + + + | Home Phone | | + + + | Preferred Language | Unknown | + + + | Marital Status | Single | + + + | Caodaism Affiliation | NON | + + + [...] Team Providers + +------+ + | Care Electrical Lineworker Name | Role | Phone | + [...] | | [address]ilion [address] | [facility], | | | | | [address] [place] | [place] [address] | | | | | Pavilion, [facility] floor | [phone] | | | | | [place], [place] | | | | | | [address] | | | | | | [phone] | | | +--------+ + + + [...]
--- OUTSIDE RECORDS SUMMARY | ~2019-06-13 | XMS | Encounter Summary ---
Demographics + + + | Address | [address] | | | [place] [address] | + + + | Home Phone | | + + + | Preferred Language | Unknown | + + + | Marital Status | | + + + | Scientologist Affiliation | Unknown | + + + | Race | Unknown | + + + | Ethnic Group | Unknown | + + + Author + + + | Author | [facility] | | | and Eduardoana | + + + | Organization | [facility] | | | and Eduardoana | + + + | Address | Unknown | + + + | Phone | Unavailable | + + + Support + + + + + | Name | Relationship | Address | Phone | + + + + + | Poncho Oquendo | ECON | [address] | | | | | [place] | | | | | [address] | | + + + + + | Marta Upton | ECON | [place] | | | | | [address] | | + + + + + Care Team Providers + +------+ + | Care Logging Engineer Name | Role | Phone | [...] ONCOLOGY CLINIC [address] | [facility] | | | | | [facility] | [place] [address] | | | | | [place] [address] | [phone] | | | | | [phone] | | | +--------+--------+ + + + [...] [address] | | | | | | [place] [address] | | | | | | [phone] | | | | | | | | +--------+---------+ + + + documented as of this encounter Visit Diagnoses + + | Diagnosis | + + | 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
--- OUTSIDE RECORDS SUMMARY | ~2019-06-13 | XMS | Encounter Summary ---
Demographics + + + | Address | [address] | | | [place] [address] | + + + | Home Phone | | + + + | Preferred Language | Unknown | + + + | Marital Status | Single | + + + | Sikhism Affiliation | NON | + + + | Race | White | + + + | Ethnic Group | Not or | + + + Author + + + | Author | [facility] | + + + | Organization | [facility] | + + + | [...] Team Providers + +------+ + | Care Crime Specialist Name | Role | Phone | + +------+ + | Tomasa Wagner | PCP | | + +------+ + Reason for Visit + + + | Reason | Comments | + + + | Prior Authorization | | | Request | | + + + Encounter Details +--------+ + + + + | Date | Type | Department | Care Team | Description | +--------+ + + + + | 07/04/ | Telephone | Hematology/Medical | Elva Grey, | Prior Authorization | | 2012 | | Oncology at [facility] | [address] | Request | | | | [address] [facility] | [facility] [address] | | | | | Mailcode: CH7M | [place] [address] | | | | | [facility] | [phone] | | | | | and Brittny, | | | | | | [facility] | | | | | | [place], [place] | | | | | | [address] | | | | | | [phone] | | | +--------+ + + + [...]
--- OUTSIDE RECORDS SUMMARY | ~2019-06-13 | XMS | Encounter Summary ---
Demographics + + + | Address | [address] | | | [place] [address] | + + + | Home Phone [...] + | Author | [facility] | | | and Eduardoana | + + + | Organization | [facility] | | | and Eduardoana | + + + | Address | Unknown | + + + | Phone | Unavailable | + + + Support + + + + + | Name | Relationship | Address | Phone | + + + + + | Poncho Oquendo | ECON | [address] | | | | | [facility] [place] | | | | | [address] | | + + + + + | Marta Upton | ECON | [place], [place] | | | | | [address] | | + + + + + Care Team Providers + +------+ + | Care Compensation Business Partner Name | Role | Phone | + +------+ + PCP | Unavailable | + +------+ + Encounter Details +--------+ + + + + | Date | Type | Department | Care Team | Description | +--------+ + + + + | 05/05/ | Hospital | [facility] | Hakan Cherry | | | 2011 | Encounter | MED CTR XRAY [address] | [address] | | | | | [place] | [address] [place], [place] | | | | | [place] [address] | [address] | | | | | [phone] | | | +--------+ + + + [...] 09/17/ | Office | Urology | Pedro Geren, | | | 2019 | Visit | | DO [address] | | | | | | [place] [address] | | | | | | [phone] | | | | | | | [...] At | + + + | [facility] Diagnostic Imaging Department | [facility] | | [address] | [facility] | | PROCEDURE NOTE LUMBAR FACET | [...] Transcribed Date/Time: 05/06/2011 17:17 | | | Vessel Operator: <Electronically Signed by Hakan Field | | | MD Dilip> 05/14/11 1336 | | + + + + + | Procedure Note | + + | Edmundo, Rad Conversion - 03/23/2013 4:58 PM [facility] | | Diagnostic Imaging Department [address] [place] [address] | | PROCEDURE NOTE LUMBAR FACET INJECTION, [...] 17:08 | |Transcribed Date/Time: 05/06/2011 17:17 | |Vessel Operator: | |<Electronically Signed by Hakan Cherry MD> 05/14/11 1336 | + + [...]
--- OUTSIDE RECORDS SUMMARY | ~2019-06-13 | XMS | Encounter Summary ---
Demographics + + + | Address | [address] | | | [place] [address] | + + + | Home Phone [...] Author | [facility] | | | and Eduardoana | + + + | Organization | [facility] | | | and Eduardoana | + + + | Address | Unknown | + + + | Phone | Unavailable | + + + Support + + + + + | Name | Relationship | Address | Phone | + + + + + | Poncho Oquendo | ECON | [address] | | | | | [place] | | | | | [address] | | + + + + + | Marta Upton | ECON | [place] | | | | | [address] | | + + + + + Care Team Providers + +------+ + | Care Cotton Farmer Name | Role | Phone | + [...] | | | ONCOLOGY CLINIC [address] | [facility] | | | | | [facility] | [place] [address] | | | | | [place] [address] | [phone] | | | | | [phone] | | | +--------+ + + + [...] [address] | | | | | | [facility] [address] | | | | | | [phone] | | | | | | | | +--------+---------+ + + + documented as of this encounter Visit Diagnoses Not on filedocumented in this encounter"
--- OUTSIDE RECORDS SUMMARY | ~2019-06-13 | XMS | Encounter Summary ---
Demographics + + + | Address | [address] | | | [place] [address] | + + + | Home Phone [...] + + | Author | [facility] | + + + | Organization | [facility] | + + + | Address | [...] Team Providers + +------+ + | Care Professional Programmer Analyst Name | Role | Phone | [...] | | | | | [place] | | | | | | [place] [address] | | | +--------+--------+ + + + [...]
--- OUTSIDE RECORDS SUMMARY | ~2019-06-13 | XMS | Encounter Summary ---
Demographics + + + | Address | [address] | | | [place] [address] | + + + | Home Phone [...] + | Author | [facility] | | | and Eduardoana | + + + | Organization | [facility] | | | and Eduardoana | + + + | Address | Unknown | + + + | Phone | Unavailable | + + + Support + + + + + | Name | Relationship | Address | Phone | + + + + + | Poncho Oquendo | ECON | [address] | | | | | [place] | | | | | [address] | | + + + + + | Marta Upton | ECON | [place] | | | | | [address] | | + + + + + Care Team Providers + +------+ + | Care Cash Register Balancer Name | Role | Phone | + [...] WALL | | | | | [address] [place] | [place] [address] | | | | | [place] [address] | [phone] | | | | | [phone] | | | +--------+ + + + [...] [address] | | | | | | [place] [address] | | | | | | [phone] | | | | | | | | +--------+---------+ + + + documented as of this encounter Visit Diagnoses + + | Diagnosis | + + | Gallbladder cancer, 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
--- OUTSIDE RECORDS SUMMARY | ~2019-06-13 | XMS | Encounter Summary ---
Demographics + + + | Address | [address] | | | [place] [address] | + + + | Home Phone [...] Providers + +------+ + | Care Tree Doctor Name | Role | Phone | + [...] [address] | treatment | | | | [facility] | [address] | | | | | for Health and | [place] [address] | | | | | Healing [address] | [phone] | | | | | [place], | | | | | | [place] [address] | | | | | | [phone] | | | +--------+ + + + [...]
--- OUTSIDE RECORDS SUMMARY | ~2019-06-13 | XMS | Encounter Summary ---
Demographics + + + | Address | [address] | | | [place] [address] | + + + | Home Phone [...] Team Providers + +------+ + | Care Vise Hand Name | Role | Phone | + +------+ + | Tomasa WagnerP | PCP | | + +------+ + Reason for Referral Consultation (Routine) + +--------+ + + + + | Status | Reason | Specialty | Diagnoses / | Referred By | Referred To | | | | | Procedures | Contact | Contact | + +--------+ + + + + | Canceled | | Hematology & | Diagnoses | Lion, | Matilda, | | | | Oncology | Gallbladder | MD Miguel | Elva Coello MD | | | | | cancer | [address] | [address] | | | | | (HCC) | Frances[address] Agosto | [facility] | | | | | Procedures | [address] | [address] | | | | | CONSULT TO | [facility] [place] | [facility] [place] | | | | | HEMATOLOGY / | [address] | [address] Phone: | | | | | ONCOLOGY | Phone: | [phone] | | | | | PRACTICE | [phone] | Fax: | | | | | | Fax: | [phone] | | | | | | [phone] | | + +--------+ + + + + Consultation (Routine) +--------+--------+ + + + + | Status | Reason | Specialty | Diagnoses / | Referred By | Referred To | | | | | Procedures | Contact | Contact | +--------+--------+ + + + + | Closed | | Surgery | Diagnoses | Degeest, | Stanton, | | | | | Gallbladder | MD Miguel | MD Tai | | | | | cancer | [address] | [address] [facility] | | | | | (HCC) | Francesco Agosto | Surendra Carreon | | | | | Procedures | [place] | [address] [place], | | | | | CONSULT TO | [place], [place] | [place] | | | | | SURGERY - | [address] | [address] | | | | | GENERAL | Phone: | Phone: | | | | | | [phone] | [phone] | | | | | | Fax: | Fax: | | | | | | [phone] | [phone] | +--------+--------+ + + + + Encounter Details +--------+ + + + + | Date | Type | Department | Care Team | Description | +--------+ + + + + | 06/14/ | Well Control Instructor | [facility] | Miguel Seymour, | Gallbladder cancer | | 2015 | | [facility] | [address] | (HCC) (Primary Dx) | | | | Alexis [address] | [facility] | | | | | [address] | [place], [place] | | | | | Alexis, [facility] floor | [address] | | | | | [place], [place] | [phone] | | | | | [address] | | | | | | [phone] | | | +--------+ + + + [...]
--- OUTSIDE RECORDS SUMMARY | ~2019-06-13 | XMS | Encounter Summary ---
Demographics + + + | Address | [address] | | | [place] [address] | + + + | Home Phone [...] + | Author | [facility] | | | and Eduardoana | + + + | Organization | [facility] | | | and Eduardoana | + + + | Address | Unknown | + + + | Phone | Unavailable | + + + Support + + + + + | Name | Relationship | Address | Phone | + + + + + | Poncho Oquendo | ECON | [address] | | | | | [place] | | | | | [address] | | + + + + + | Marta Upton | ECON | [place] | | | | | [address] | | + + + + + Care Team Providers + +------+ + | Care Licensed Journeyman Electrician Name | Role | Phone | + +------+ + | Valeriy Carmona DO | PCP | | + +------+ + Encounter Details +--------+ + + + + | Date | Type | Department | Care Team | Description | +--------+ + + + + | 06/26/ | Orders Only | [facility] | Marcelina Johnson, | Gallbladder cancer, | | 2015 | | MED CTR CHEMO | RN | carcinoma (HCC) | | | | INFUSION [address] | | (Primary Dx) | | | | [place], | | | | | | [place] [address] | | | | | | [phone] | | | +--------+ + + + [...] [address] | | | | | | [place] [address] | | | | | | [phone] | | | | | | | | +--------+---------+ + + + documented as of this encounter Visit Diagnoses + + | Diagnosis | + + | Gallbladder cancer, 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
--- OUTSIDE RECORDS SUMMARY | ~2019-06-13 | XMS | Encounter Summary ---
Demographics + + + | Address | [address] | | | [place] [address] | + + + | Home Phone [...] + | Author | [facility] | | | and Eduardoana | + + + | Organization | [facility] | | | and Eduardoana | + + + | Address | Unknown | + + + | Phone | Unavailable | + + + Support + + + + + | Name | Relationship | Address | Phone | + + + + + | Poncho Oquendo | ECON | [address] | | | | | [place], [place] | | | | | [address] | | + + + + + | Marta Upton | ECON | [place] | | | | | [address] | | + + + + + Care Team Providers + +------+ + | Care Waiter/Waitress First Class Name | Role | Phone | + [...] + + | 06/26/ | Telephone | [facility] | Marcelina Johnson, | IDT Note | | 2014 | | MED CTR CHEMO | RN | | | | | INFUSION [address] | | | | | | [place], | | | | | | [place] [address] | | | | | | [phone] | | | +--------+ + + + [...] [address] | | | | | | [place] [address] | | | | | | [phone] | | | | | | | | +--------+---------+ + + + documented as of this encounter Visit Diagnoses Not on filedocumented in this encounter"
--- OUTSIDE RECORDS SUMMARY | ~2019-06-13 | XMS | Encounter Summary ---
Demographics + + + | Address | [address] | | | [place] [address] | + + + | Home Phone [...] Team Providers + +------+ + | Care Jewelry Sales Name | Role | Phone | + +------+ + | Valeriy Carmona MD | PCP | | + +------+ + Encounter Details +--------+ + + + + | Date | Type | Department | Care Team | Description | +--------+ + + + + | 04/28/ | Ancillary | LAB CORE [address] | | | | 2012 | Lilia | [address] | | | | | | [place] | | | | | | [address] | | | | | | [phone] | | | +--------+ + + + [...] + | CBC ONLY | Routin | 04/28/2012 | | Results for this | | | e | 8:00 AM | | procedure are in the | | | | PDT | | results section. | + +--------+ + + + | INR | Routin | 04/28/2012 | | Results for this | | | e | 8:00 AM | | procedure are in the | | | | PDT | | results section. | + +--------+ + + + | CBC ONLY | Routin | 04/28/2012 | | Results for this | | | e | 8:00 AM | | procedure are in the | | | | PDT | | results section. | + +--------+ + + + | APTT (ACT. PART. | Routin | 04/28/2012 | | Results for this | | THROMBO TIME) | e | 8:00 AM | | procedure are in the | | | | PDT | | results section. | + +--------+ + + + documented in this encounter Results CBC (04/28/2012 8:00 AM PDT) + +-------+ + + + | Component | Value | Ref Range | Performed | Pathologist | | | | | At | Signature | + +-------+ + + + | WBC COUNT | 6.1 | 4.4 - 11.0 K/cu | [facility] | | | | | mm | LABORATORY | | | | | | SERVICES, | | | | | | CORE | | + +-------+ + + + | RED CELL | 4.64 | 4.00 - 5.20 | [facility] | | | COUNT | | M/cu mm | LABORATORY | | | | | | SERVICES, | | | | | | CORE | | + +-------+ + + + | HEMOGLOBIN | 13.9 | 12.0 - 16.0 | [facility] | | | | | g/dL | LABORATORY | | | | | | SERVICES, | | | | | | CORE | | + +-------+ + + + | HEMATOCRIT | 40.0 | 36.0 - 46.0 % | [facility] | | | | | | LABORATORY | | | | | | SERVICES, | | | | | | CORE | | + +-------+ + + + | MCV | 86.3 | 80.0 - 96.0 fL | [facility] | | | | | | LABORATORY | | | | | | SERVICES, | | | | | | CORE | | + +-------+ + + + | MCHC | 34.6 | 33.4 - 35.5 | [facility] | [...] +-------+ + + + | PLATELET | 179 | 150 - 400 K/cu | [facility] [...] + | [facility] | [address] | [place] [address] | | | SERVICES, CORE | [address] | | | + + + + + INR (04/28/2012 8:00 AM PDT) + +-------+ + + + [...] [facility] | [address] | [place] [address] | | | SERVICES, SAM | [address] | | | + + + + + APTT (ACT. PART. THROMBO TIME) (04/28/2012 8:00 AM PDT) + +-------+ + + + | Component | Value | Ref Range | Performed | Pathologist | | | | | At | Signature | + +-------+ + + + | APTT | 29.2 | 26.0 - 36.0 | [facility] | | | | | seconds | LABORATORY | | | | | | SERVICES, | | | | | | SAM | | + +-------+ + + + + + | Specimen | + + | Blood - Blood | + + + + + | Narrative | Performed At | + + + | APTT Therapeutic Range: (75 - | [facility] | | 120) sec Heparin levels of 0.35 - 0.7 U/mL | LABORATORY | | | SERVICES, CORE | + + + + + + + + | Performing | Address | City/State/Zipcode | Phone Number | | Organization | | | | + + + + + | [facility] | [address] | [place] [address] | | | SERVICES, CORE | [address] | | | + + + + + documented in this encounter Visit Diagnoses Not on filedocumented in this encounter"
--- OUTSIDE RECORDS SUMMARY | ~2019-06-13 | XMS | Encounter Summary ---
Demographics + + + | Address | [address] | | | [place] [address] | + + + | Home Phone [...] Providers + +------+ + | Care Vegetable Canner Name | Role | Phone | + [...] | | | | | | | [facility] | | | | | | | for Health | | | | | | | and Healing, | | | | | | | [address] | | | | | | | [place], [place] | | | | | | | [address] | | | | | | | Phone: | | | | | | | [phone] | | | | | | | Fax: | | | | | | | [phone] | +--------+--------+ + + + + Encounter [...] (Primary Dx) | | | | [facility] | [address] | | | | | for Health and | [place], [place] | | | | | [facility] | [address] | | | | | [place], [place] | [phone] | | | | | [address] | | | | | | [phone] | | | +--------+---------+ + + + [...] the resident s note. Tai Stanton M.D. [facility] ([facility]) Professor and Vice-Store Planner of Surgery [employer] [facility] Chair for Pancreatic Disease Research Pancreatic/ HepatoBiliary and Foregut Working Groups Office email: [email or web address] Rukhsana Patel MD - 05/31/2012 2:07 PM PDT [facility] Department of Surgery [facility] [...] female patient who presents to [facility] today for follow up for [...] Pathology: Original path: Materials Received: Referring Institution: [facility] General Specific [facility], [place] [address] Outside Accession Number: [id number] Sample Collection Date: 03/29/2012 Sublabeled H&E IHC [...] plan. Rukhsana Tesfaye MD Surgery, R1 Pager: [phone] documented in this e ncounter Plan of Treatment Not on filedocumented as of this encounter Visit Diagnoses + + | Diagnosis | + + | Encounter for wound care - Primary Encounter for other specified aftercare | + + documented in this encounter
--- OUTSIDE RECORDS SUMMARY | ~2019-06-13 | XMS | Encounter Summary ---
Demographics + + + | Address | [address] | | | [place] [address] | + + + | Home Phone [...] + | Author | [facility] | | | and [place] | + + + | Organization | [facility] | | | and [place] | + + + | Address | Unknown | + + + | Phone | Unavailable | + + + Support + + + + + | Name | Relationship | Address | Phone | + + + + + | Poncho Oquendo | ECON | [address] | | | | | [facility], [place] | | | | | [address] | | + + + + + | Marta Upton | ECON | [place] | | | | | [address] | | + + + + + Care Team Providers + +------+ + | Care Corn Cooker Name | Role | Phone | + [...] | | renal and | OBED, | [place] | | | | | ureteral | [place] | [address] Phone: | | | | | calculous | [address] | [phone] | | | | | obstruction | Phone: | Fax: | | | | | | [phone] | [phone] | | | | | | Fax: | | | | | | | [phone] | | +--------+--------+ + + + + Encounter Details +--------+---------+ + + + | Date | Type | Department | Care Team | Description | +--------+---------+ + + + | 03/26/ | Office | [facility] | Pedro Green, | Gallbladder cancer, | | 2020 | Visit | UROLOGY [address] | DO [address] | carcinoma (HCC) | | | | [address] | [place] [address] | (Primary Dx); | | | | [place], [place] | [phone] | Obstruction of left | | | | [address] | | ureter | | | | [phone] | | | +--------+---------+ + + + [...] encounter Patient Instructions Patient Instructions Eleonora Saxena, Support Analyst - 03/26/2019 10:30 AM PSTPLAN : Proceed [...] MUST receive a cardiac clearance from your datastage consultant prior to surgery. Family members (class c driver) need to stay here during the procedure and can leave once patient i s discharged. Location: [facility] ([address] [place] [address] [place] [address]) Time: You will receive a call around [...] related questions or concerns, please contact our Support Analyst Christine parikh at PLAN : Proceed with [...] MUST receive a cardiac clearance from your datastage consultant prior to surgery. Family members (class c driver) need to stay here during the procedure and can leave once patient is discharged. Location: [facility] ([address] [place] [address] [place] [address]) Time: You will receive a call around [...] related questions or concerns, please contact our Support Analyst Christine parikh at documented in this encounter Progress Notes Pedro Green DO - 03/26/2019 10:30 AM PSTFormatting of this note might be different fr om the original. [facility] Urology Primary Care Provider: No Physician [...] this well. Her last exchange was at [facility] during a septic episode. Her last [...] and replacement; Surgeon: Pedro coker DO; Location: [facility] MAIN OR HYSTERECTOMY LIVER SURGERY OTHER SURGICAL HISTORY UNLISTED PROCEDURE ARTHROSCOPY OTHER SURGICAL HISTORY MEDIPORT INSERTION SINGLE OTHER SURGICAL HISTORY HARDWARE PRESENT OTHER SURGICAL HISTORY Left 07/05/2018 CYSTOSCOPY W/ URETERAL STENT PLACEMENT - Procedure: CYSTOSCOPY - STENT; Surgeon: Pedro Green DO; Location: [facility] MAIN OR; Service: Urology; Laterality: [...] | 2019 | Visit | | DO [address] [place] [address] | | | | | | [place] [address] | | | | | | [phone] | | | | | | | | +--------+---------+ + + + documented as of this encounter Visit Diagnoses + + | Diagnosis | + + | Gallbladder cancer, 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
--- OUTSIDE RECORDS SUMMARY | ~2019-06-13 | XMS | Encounter Summary ---
Demographics + + + | Address | [address] | | | [place] [address] | + + + | Home Phone [...] Team Providers + +------+ + | Care Local Delivery Truck Driver Name | Role | Phone [...] | | | Reconstructive | [address] [place], | | | | | Services at [facility] | [place] [address] | | | | | [address] | [phone] | | | | | Mailcode: CH5E | | | | | | [facility] | | | | | | and Healing, | | | | | | Building [address] | | | | | | [place], [place] | | | | | | [address] | | | | | | [phone] | | | +--------+---------+ + + + [...] Surgery Dept. of Otolaryngology/Head and Neck Surgery [employer] [facility] [employer] tel fax email [email or web address] documented in this encounte r Plan of Treatment Not on filedocumented as of this encounter Visit Diagnoses + + | Diagnosis | + + | Perforation of nasal septum - Primary Other diseases of nasal cavity and sinuses | + + documented in this encounter"
--- OUTSIDE RECORDS SUMMARY | ~2019-06-13 | XMS | Encounter Summary ---
Demographics + + + | Address | [address] | | | [place] [address] | + + + | Home Phone [...] | [facility] | | | and [place] | + + + | Organization | [facility] | | | and [place] | + + + | Address | Unknown | + + + | Phone | Unavailable | + + + Support + + + + + | Name | Relationship | Address | Phone | + + + + + | Poncho Oquendo | ECON | [address] | | | | | [facility] [place] | | | | | [address] | | + + + + + | Marta Upton | ECON | [place] | | | | | [address] | | + + + + + Care Team Providers + +------+ + | Care Shirt Folding Machine Operator Name | Role | Phone [...] + + + + | 11/29/ | Hospital | [facility] | Pedro Green, | Obstruction of left | | 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 | [facility] | DO [address] | ureter | | | | CARE FLOOR [address] | [place] [address] | | | | | [address] | [phone] | | | | | [place] | | | | | | [address] | | | | | | [phone] | | | +--------+ + + + [...] out of the urethra Date Last Reviewed: 02/15/201619998682-6289 [employer]. [address] [place] [address]. All righ ts reserved. This information is [...] on your doctor's advice. Talk to your language arts teacher regarding the use of this medicine in children. Special care may be needed. What side effects may I notice from receiving this medicine? Side effects that you should report to your doctor or health student career development specialist as soon as p ossible: allergic reactions like skin rash, itching or hives, swelling of the face, lips, or tongue blue or purple color of the skin difficulty breathing fever less urine unusual bleeding, bruising unusual tired, weak vomiting yellowing of the eyes or skin Side effects that usually do not require medical attention (report to your doctor or health student career development specialist if they continue or are bothersome): dark [...] if you have any of these conditions: lwosybn-7-amtnfzypi dehydrogenase (G6PD) deficiency kidney disease an unusual or allergic reaction to phenazopyridine, other medicines, foods, dyes, or preser vatives or trying to get breast-feeding What should I watch for while using this medicine? Tell your doctor or health student career development specialist if your symptoms do not improve or [...] for sugar in your urine. Talk to [facility] health care provider. NOTE:This sheet is a summary. It may not cover all possible information. If you have questi ons about this medicine, talk to your doctor, pharmacist, or health care provider. Copyright 2019 [employer] Ciprofloxacin tablets Brand Name: Cipro What is [...] information carefully each time. Talk to your language arts teacher regarding the use of this medicine in children. Special care may be needed. What side effects may I notice from receiving this medicine? Side effects that you should report to your doctor or health student career development specialist as soon as p ossible: allergic reactions [...] attention (report to your doctor or health student career development specialist if they continue or are bothersome): dry [...] watery. Check with your doctor or health student career development specialist if you get an attack of severe diarrhea, nausea and vomiting, or if you sweat a lot. The loss of too much body fluid can make it haile gerous for you to take this medicine. This medicine may affect blood sugar levels. If you have diabetes, check with your doctor o r health student career development specialist before you change your diet or the [...] GRANIX 300 | | | 0 | 01//20 | | | MCG/0.5ML injection | | [...] as of this encounter Progress Notes Nikky Guallpa, DANIKA - 11/29/2018 3:56 PM PDTDischarge instructions including [...] [address] | | | | | | [place] [address] | | | | | | [phone] | | | | | | | [...] | | | | | | longer, sofhhp-rua-aztgf use of | | | | | [...] + +---+---+ +---+---+ | | | +---+---+ documented in this encounter"
--- OUTSIDE RECORDS SUMMARY | ~2019-06-13 | XMS | Encounter Summary ---
Demographics + + + | Address | [address] | | | [place] [address] | + + + | Home Phone [...] | Author | [facility] | | | and [place]ardo[place] | + + + | Organization | [facility] | | | and [place] | + + + | Address | Unknown | + + + | Phone | Unavailable | + + + Support + + + + + | Name | Relationship | Address | Phone | + + + + + | Poncho Oquendo | ECON | [address] | | | | | [place] | | | | | [address] | | + + + + + | Marta Upton | ECON | [place] | | | | | [address] | | + + + + + Care Team Providers + +------+ + | Care Steel Cutter Name | Role | Phone | [...] + + | 12/10/ | Telephone | [facility] | Reinaldo, | Other | | 2014 | | [facility] | Epifanio Soler MD [address] | | | | | [facility] CLIN[facility] [address] | [facility] | | | | | [address] [facility] | [place] [address] | | | | | [place] [address] | [phone] | | | | | [phone] | | | +--------+ + + + [...] | | [facility] [address] | | | | | | [phone] | | | | | | | | +--------+---------+ + + + documented as of this encounter Visit Diagnoses Not on filedocumented in this encounter"
--- OUTSIDE RECORDS SUMMARY | ~2019-06-13 | XMS | Encounter Summary ---
Demographics + + + | Address | [address] | | | [place] [address] | + + + | Home Phone [...] | Author | [facility] | | | and [place] | + + + | Organization | [facility] | | | and [place] | + + + | Address | Unknown | + + + | Phone | Unavailable | + + + Support + + + + + | Name | Relationship | Address | Phone | + + + + + | Poncho Oquendo | ECON | [address] | | | | | [place] | | | | | [address] | | + + + + + | Marta Upton | ECON | [place] | | | | | [address] | | + + + + + Care Team Providers + +------+ + | Care Fixed Route Bus Operator Name | Role | Phone | [...] Epifanio Soler MD [address] | right (Primary Dx) | | | | ONCOLOGY [address] [place] | | | | | [place], | [place] [address] | | | | | [place] [address] | [phone] | | | | | [phone] | | | +--------+ + + + [...] [address] | | | | | | [place] [address] | | | | | | [phone] | | | | | | | | +--------+---------+ + + + documented as of this encounter Results Breast Limited Right (03/05/2016 1:42 PM PST) + + | Specimen | + + | | + + + + + | Narrative | Performed At | + + + | US BREAST LIMITED RIGHT 03/05/2016 1:00 PM EXAM: LUPE TOMOSYN | [facility] | | DIAGNOSTIC [...] LIMITED RIGHT 03/05/2016 1:00 | | PMEXAM: [facility] TOMOSYN DIAGNOSTIC RIGHT dated 03/05/2016 [...] At | + + + | EXAM: [facility] TOMOSYN DIAGNOSTIC RIGHT dated 03/05/2016 [...]
--- OUTSIDE RECORDS SUMMARY | ~2019-06-13 | XMS | Encounter Summary ---
Demographics + + + | Address | [address] | | | [place] [address] | + + + | Home Phone | | + + + | Preferred Language | Unknown | + + + | Marital Status | | + + + | Judaism Affiliation | Unknown | + + + | Race | Unknown | + + + | Ethnic Group | Unknown | + + + Author + + + | Author | [facility] | | | and [place] | + + + | Organization | [facility] | | | and [place] | + + + | Address | Unknown | + + + | Phone | Unavailable | + + + Support + + + + + | Name | Relationship | Address | Phone | + + + + + | Poncho Oquendo | ECON | [address] | | | | | [place] | | | | | [address] | | + + + + + | Marta Upton | ECON | [place] | | | | | [address] | | + + + + + Care Team Providers + +------+ + | Care Head Worker Name | Role | Phone | [...] 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, | [place]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 | MD [address] | [place], | | | | | (HCC) | [address] | [place] [address] | | | | | Procedures | [place], | Phone: | | | | | [place] | [place] [address] | [phone] | | | | | O[place] | Phone: | Fax: | | | | | HCL | [phone] | [phone] | | | | | INJECTION, 1 | Fax: | | | | | | [place] | [phone] | | | | | | FOSAPREPITAN [...] | | | | | | [place] | | | | | | [...] | | | | | | [address] [place] | | | | | | [...] + + | 10/31/ | Hospital | [facility] | Reinaldo, | Gallbladder cancer, | | 2015 | Encounter | MED CTR CHEMO | Epifanio Soler MD [address] | carcinoma (HCC) | | | | INFUSION [address] | [address] [place] | (Primary Dx) | | | | [place], | [place] [address] | | | | | [place] [address] | [phone] | | | | | [phone] | | | +--------+ + + + [...] [address] | | | | | | [place] [address] | | | | | | [phone] | | | | | | | [...] autodiff. | [facility] | | | [facility] | | | [facility] | | | - LABORATORY | + + + + + + + + | Performing | Address | City/State/Zipcode | Phone Number | | Organization | | | | + + + + + | [facility] | [address] | [place] | [phone] | | [facility] | | [address] | | | - LABORATORY | | [...] | | | | | | [place] [address] | | | | + + + + + + + + | Specimen | + + | Blood specimen | | (specimen) | + + + + + + + | Performing | Address | City/State/Zipcode | Phone Number | | Organization | | | | + + + + + | [facility] | [address] | [place] [address] | [phone] | + + + + + [place] [...] [address] | [place] | [phone] | | [facility] | | [address] | | | - LABORATORY | | [...] + | [facility] [facility] | [address] [place] [address] | [place] | [phone] | | [facility] | | [address] | | | - LABORATORY | | [...] | | | | mmol/L | [facility] | | | | | [...] | mL/min/1.73m2 | [facility] | | | [place] | RATE,ESTIMATED | | MEDICAL | | | | mL/min/1.34v0Vbqo than | | CENTER - | | [...] [address] | [place] | [phone] | | [facility] | | [address] | | | - [...] [address] | [place] | [phone] | | [facility] | | [address] | | | - LABORATORY | | [...] | | | | | Intracatheter, ONCE, [facility] 10/31/14 | | AM PDT | | [...] | | | over 1 Hours, ONCE, [facility] 10/31/14 | | | | | | [...] | | | over 30 Minutes, ONCE, [facility] | | | | | | | [...] | | | | | Care, Starting [facility] 10/31/14 at | | | | | [...] | | | | | Minutes, ONCE, [facility] 10/31/14 at | | | | | | | 1015, For 1 dose, Administer | | | | | | | prior to chemotherapy., | | | | | | + +---------+ +---+-------+---+ +---+---+ | | | +---+---+ documented in this encounter"
--- OUTSIDE RECORDS SUMMARY | ~2019-06-13 | XMS | Encounter Summary ---
Demographics + + + | Address | [address] | | | [place] [address] | + + + | Home Phone [...] + + | Author | [facility] | | | and [place]ardo[place] | + + + | Organization | [facility] | | | and [place] | + + + | Address | Unknown | + + + | Phone | Unavailable | + + + Support + + + + + | Name | Relationship | Address | Phone | + + + + + | Poncho Oquendo | ECON | [address] | | | | | [facility] [place] | | | | | [address] | | + + + + + | Marta Upton | ECON | [place] | | | | | [address] | | + + + + + Care Team Providers + +------+ + | Care Granite Fabricator Name | Role | Phone | + [...] | +--------+ + + + + | 02/12/ | Telephone | [facility] | Pedro Green, | Follow-up | | 2019 | | UROLOGY [address] | DO [address] | | | | | [address] | [place] [address] | | | | | [place], [place] | [phone] | | | | | [address] | | | | | | [phone] | | | +--------+ + + + [...] [address] | | | | | | [place] [address] | | | | | | [phone] | | | | | | | | +--------+---------+ + + + documented as of this encounter Visit Diagnoses Not on filedocumented in this encounter"
--- OUTSIDE RECORDS SUMMARY | ~2019-06-13 | XMS | Encounter Summary ---
Demographics + + + | Address | [address] | | | [place] [address] | + + + | Home Phone [...] Providers + +------+ + | Care Client Experience Consultant Name | Role | Phone | [...] | | | Reconstructive | [address] [place], | | | | | Services at [facility] | [place] [address] | | | | | [address] | [phone] | | | | | Mailcode: CH5E | | | | | | [facility] | | | | | | and Healing, | | | | | | [address] | | | | | | [place], [place] | | | | | | [address] | | | | | | [phone] | | | +--------+---------+ + + + [...] Surgery Dept. of Otolaryngology/Head and Neck Surgery [employer] [facility] tel fax email [email or web address] documented in this encounte r Plan of Treatment Not on filedocumented as of this encounter Visit Diagnoses + + | Diagnosis | + + | Perforation of nasal septum - Primary Other diseases of nasal cavity and sinuses | + + documented in this encounter"
--- OUTSIDE RECORDS SUMMARY | ~2019-06-13 | XMS | Encounter Summary ---
Demographics + + + | Address | [address] | | | [place] [address] | + + + | Home Phone | | + + + | Preferred Language | Unknown | + + + | Marital Status | Single | + + + | Taoist Affiliation | NON | + + + [...] Team Providers + +------+ + | Care Postulant Name | Role | Phone | + [...] | | Pavilion [address] | [facility], | | | | | [address] | [place] [address] | | | | | Pavilion, [facility] floor | [phone] | | | | | [place], [place] | | | | | | [address] | | | | | | [phone] | | | +--------+ + + + [...]
--- OUTSIDE RECORDS SUMMARY | ~2019-06-13 | XMS | Encounter Summary ---
Demographics + + + | Address | [address] | | | [place] [address] | + + + | Home Phone [...] Team Providers + +------+ + | Care Non Destructive Evaluation Manager Name | Role | Phone | [...] | 2012 | Visit | Center at [facility] [address] | [address] | care (Primary Dx) | | | | HIEN [facility] | [address] | | | | | for Health and | [place], [place] | | | | | [facility] | [address] | | | | | [place], [place] | [phone] | | | | | [address] | | | | | | [phone] | | | +--------+---------+ + + + [...] sooner if she wishes. Tai Stanton M.D. [facility] ([facility]) Professor and Vice-Manager Diesel of Surgery The Shahriar Nava Chair for Pancreatic Disease Research Pancreatic/ HepatoBiliary and Foregut Working Groups Office email: [email or web address] documented in this en counter Plan of Treatment Not on filedocumented as of this encounter Visit Diagnoses + + | Diagnosis | + + | Encounter for wound care - Primary Encounter for other specified aftercare | + + documented in this encounter
--- OUTSIDE RECORDS SUMMARY | ~2019-06-13 | XMS | Encounter Summary ---
Demographics + + + | Address | [address] | | | [place] [address] | + + + | Home Phone [...] | [facility] | | | and [place]ardo[place] | + + + | Organization | [facility] | | | and [place] | + + + | Address | Unknown | + + + | Phone | Unavailable | + + + Support + + + + + | Name | Relationship | Address | Phone | + + + + + | Poncho Oquendo | ECON | [address] | | | | | [place] | | | | | [address] | | + + + + + | Marta Upton | ECON | [place] | | | | | [address] | | + + + + + Care Team Providers + +------+ + | Care Fashion Director Name | Role | Phone | [...] | | Carcinoma | Reinaldo, | [address] | | | | | of gall | Epifanio C, | [place], | | | | | bladder | MD [address] | [place] [address] | | | | | (HCC) | [address] | Phone: | | | | | Procedures | [place], | [phone] | | | | | [place] Abdomen | [place] [address] | Fax: | | | | | Pelvis w | Phone: | [phone] | | | | | Contrast | [phone] | | | | | | | Fax: | | | | | | | [phone] | | +--------+--------+ + + + + [...] | (Primary Dx) | | | | [address] [place], | [place] [address] | | | | | [place] [address] | [phone] | | | | | [phone] | | | +--------+ + + + [...] [address] | | | | | | [place] [address] | | | | | | [phone] | | | | | | | [...] [address] | [place] | [phone] | | [facility] | | [address] | | | - LABORATORY | | [...] | | | | | | [place] [address] | | | | + + + [...] [address] | [place] [address] | [phone] | + + + + + Lactate [...] + | [facility] | [address] | [place] | [phone] | | [facility] | | [address] | | | - LABORATORY | | [...] mL/min/1.73m2 | [facility] | | | [facility] | RATE,ESTIMATED | | MEDICAL | | | | mL/min/1.80e5Kaks than | | CENTER - | | [...] | 8.6 | 8.3 - 10.5 | [facility] | | | | | mg/dL | [...] 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
--- OUTSIDE RECORDS SUMMARY | ~2019-06-13 | XMS | Encounter Summary ---
Demographics + + + | Address | [address] | | | [place] [address] | + + + | Home Phone [...] Providers + +------+ + | Care Lead Data Architect Name | Role | Phone | [...] | | 2012 | | Center at [facility] [address] | [address] | (Pt requested | | | | HIEN [facility] | [facility] | reports be sent to | | | | [facility] and | [place], [place] | outside ) | | | | [facility] 2 | [address] | | | | | [place], [place] | [phone] | | | | | [address] | | | | | | [phone] | | | +--------+ + + + [...]
--- OUTSIDE RECORDS SUMMARY | ~2019-06-13 | XMS | Encounter Summary ---
Demographics + + + | Address | [address] | | | [place] [address] | + + + | Home Phone [...] Team Providers + +------+ + | Care Crm System Administrator Name | Role | Phone | [...] | | | | | | Mailcode: [facility] | | | | | | | Center | | | | | | | for Health | | | | | | | and Healing, | | | | | | | Building [address] | | | | | | | [place], [place] | | | | | | | [address] | | | | | | | Phone: | | | | | | | [phone] | | | | | | | Fax: | | | | | | | [phone] | +--------+--------+ + + + + Encounter Details +--------+ + + + + | Date | Type | Department | Care Team | Description | +--------+ + + + + | 07/04/ | Hospital | [facility] | Virgilio Esquivel MD | | | 2008 | Encounter | [address] | [address] | | | | | [place] Mailcode: [facility] | Velma [place], | | | | | [facility] | [place] [address] | | | | | Health and Healing, | [phone] | | | | | [facility] | | | | | | [place], [place] | | | | | | [address] | | | | | | [phone] | | | +--------+ + + + [...] Performed At | + + + | [id number] | | | [id number] | | | [id number] [facility]D ARREDON[facility] [id number] | | | Date: 07/04/2008 Attending Surgeon: | | | Virgilio Esquivel M.D. Vat House Supervisor(s): | | | Prudencio Fay MD Preoperative [...] left side, and | | | a Magnolia was used to elevate the left mucoperichondrial [...] performed with a #15 blade followed by Magnolia elevation of | | | mucoperichondrial flap. The portions of mucosa surrounding the | | | perforation were then incised with a Magnolia. Additional mobilization | | | of the [...] Surgery MMK / HS | | | [id number] / [id number] / 48065 / | | | | | + + + + + | Procedure Note | + + | Prudencio Fay MD - 07/04/2008 12:00 AM PDT [id number] | | [id number] [facility] | | [place] [id number] Date: 07/04/2008 Attending Surgeon: | | Virgilio Esquivel M.D. Vat House Supervisor(s): Prudencio Fay MD | | Preoperative Diagnosis(es):Septal [...] the cartilage on theleft side, and a Magnolia was | | used to elevate the left mucoperichondrial flap.This was elevated above and below the | | level of the perforation and wastaken past the bony cartilaginous junction superiorly | | and inferiorly. Inorder to gain additional exposure, the right side was approached in | | asimilar fashion. Cartilaginous scoring was performed with a #15 bladefollowed by Magnolia | | elevation of mucoperichondrial flap. The portions ofmucosa surrounding the perforation | | were then incised with a Magnolia.Additional mobilization of the bilateral | | mucoperichondrial [...] cartilages onto the anterior septal angle of [facility]. The soft tissue | | skin envelope [...] M.D.Facial Plastic | | and Reconstructive Surgery [facility] / [id number] / [id number] / [id number] / T: 07/06/2008 | | | |approached initially. A #15 blade was used to score the cartilage on the | |left side, and a Magnolia was used to elevate the left mucoperichondrial flap. | |This was elevated above and below the level of the perforation and was | |taken past the bony cartilaginous junction superiorly and inferiorly. In | |order to gain additional exposure, the right side was approached in a | |similar fashion. Cartilaginous scoring was performed with a #15 blade | |followed by Magnolia elevation of mucoperichondrial flap. The portions of | |mucosa surrounding the perforation were then incised with a Magnolia. | |Additional mobilization of the bilateral mucoperichondrial [...] | | | |KRISTINA / HS | |[id number] / 062350 / 09325 / | | | | | | | | | | | | | | | | | | | | | + + TEACHING PHYSICIAN (07/04/2008 12:00 AM PDT) + + + | Narrative | Performed At | + + + | [id number] | | | [id number] | | | [id number] [facility] [id number] | | | Date: 07/04/2008 Attending Surgeon: | | | Virgilio Esquivel M.D. Vat House Supervisor(s): | | | Prudencio Fay MD Preoperative [...] Surgery TDW / HS | | | [id number] / [id number] / 08711 / | | | | | + + + + + | Procedure Note | + + | Virgilio Esquivel MD - 07/04/2008 12:00 AM PDT [id number] | | [id number] [facility] | | [place] [id number] Date: 07/04/2008 Attending Surgeon: | | Virgilio Esquivel M.D. Vat House Supervisor(s): Prudencio Fay MD | | Preoperative Diagnosis(es):Nasal [...] M.D.Facial Plastic and Reconstructive Surgery TDW / [id number] / | | [id number] / 20130 / T: 07/04/2008 | | | | [...] | | | |TDW / HS | |[id number] / 406656 / 86543 / | | | | | | | | | | | | | | | | | | | | | + + documented in this encounter Visit Diagnoses Not on filedocumented in this encounter
--- OUTSIDE RECORDS SUMMARY | ~2019-06-13 | XMS | Encounter Summary ---
Demographics + + + | Address | [address] | | | [place] [address] | + + + | Home Phone [...] + + + | Author | [facility] | + + + | Organization | [facility] | + + + | [...] Providers + +------+ + | Care Multimedia Services Manager Name | Role | Phone | [...] | | | | | Procedures | [place], [place] | [facility] [place] | | | | | CONSULT TO | [address] | [address] | | | | | ENT / FACIAL | Phone: | Phone: | | | | | PLASTIC | [phone] | [phone] | | | | | SURGERY | Fax: | Fax: | | | | | | [phone] | [phone] | +--------+--------+ + + + + Reason [...] | y | | Epic Dept | [facility] [address] | | | | | | [...] | | | | | | | [place], [place] | | | | | | | [address] | | | | | | | Phone: | | | | | | | [phone] | | | | | | | Fax: | | | | | | | [phone] | +--------+--------+ + + + + Encounter Details +--------+---------+ + + + | Date | Type | Department | Care Team | Description | +--------+---------+ + + + | 12/27/ | Office | [facility] | Aamir Lau, | Nasal Septal Defect | | 2007 | Visit | Center at [facility] [address] | [address] | (Primary Dx); | | | | [address] | [place], [place] | Chronic Ethmoidal | | | | Mailcode: CH5E | [address] | Sinusitis; Other | | | | [facility] | [phone] | Diseases of Nasal | | | | and Healing, | | Cavity and Sinuses | | | | Building [address]th | | | | | | Floor [place], [place] | | | | | | [address] | | | | | | [phone] | | | +--------+---------+ + + + [...] documentation. Aamir Lau M.D., M.P.H., F.A.C.S. Director, [facility] Professor and Chief, Rhinology and [...] ESS and septoplasty by Dr. Benedict in [place]. She reports a prolonged recovery with sign [...] Rfl: No Known Allergies. Social HX: Lives [place] No ETOH, No tobacc (quit several [...] | + + +--------+ + + | NE NASAL | Procedures | Routin | Chronic [...]
--- OUTSIDE RECORDS SUMMARY | ~2019-06-13 | XMS | Encounter Summary ---
Demographics + + + | Address | [address] | | | [place] [address] | + + + | Home Phone [...] + | Author | [facility] | | | and [place] | + + + | Organization | [facility] | | | and [place] | + + + | Address | Unknown | + + + | Phone | Unavailable | + + + Support + + + + + | Name | Relationship | Address | Phone | + + + + + | Poncho Oquendo | ECON | [address] | | | | | [place] | | | | | [address] | | + + + + + | Marta Upton | ECON | [place] | | | | | [address] | | + + + + + Care Team Providers + +------+ + | Care Clinical Assoc Name | Role | Phone | + [...] | | | [facility] | [facility] | | | | | [facility] | [place] [address] | | | | | [place] [address] | [phone] | | | | | [phone] | | | +--------+ + + + [...] | | | | | | [facility] [place] [address] | | | | | | [phone] | | | | | | | | +--------+---------+ + + + documented as of this encounter Visit Diagnoses Not on filedocumented in this encounter"
--- OUTSIDE RECORDS SUMMARY | ~2019-06-13 | XMS | Encounter Summary ---
Demographics + + + | Address | [address] | | | [place] [address] | + + + | Home Phone [...] | Author | [facility] | | | and [place] | + + + | Organization | [facility] | | | and [place] | + + + | Address | Unknown | + + + | Phone | Unavailable | + + + Support + + + + + | Name | Relationship | Address | Phone | + + + + + | Poncho Oquendo | ECON | [address] | | | | | [place] | | | | | [address] | | + + + + + | Marta Upton | ECON | [place] | | | | | [address] | | + + + + + Care Team Providers + +------+ + | Care Radiagraph Operator Name | Role | Phone | + +------+ + | Valeriy Carmona DO | PCP | | + +------+ + Encounter Details +--------+ + + + + | Date | Type | Department | Care Team | Description | +--------+ + + + + | 11/19/ | Orders Only | [facility] | Sasha Renee | | | 2014 | | MED CTR CHEMO | D, RN | | | | | INFUSION [address] | | | | | | [place], | | | | | | [place] [address] | | | | | | [phone] | | | +--------+ + + + [...] [address] | | | | | | [place] [address] | | | | | | [phone] | | | | | | | | +--------+---------+ + + + documented as of this encounter Visit Diagnoses Not on filedocumented in this encounter"
--- OUTSIDE RECORDS SUMMARY | ~2019-06-13 | XMS | Encounter Summary ---
Demographics + + + | Address | [address] | | | [place] [address] | + + + | Home Phone [...] Team Providers + +------+ + | Care Portfolio Accountant Name | Role | Phone | + [...] [place] | | | | | | [address] | | | | | | [phone] | | | +--------+ + + + [...] + + | [facility] | [address] | [place] [address] | | | SERVICES, CORE | PARK [...] [facility] | [address] | [place] [address] | | | SERVICES, SAM | PARK [...] + + + + + | [facility] | [address] | [place] [address] | | | SERVICES, CORE | [address] | | | + + + + + documented in this encounter Visit Diagnoses Not on filedocumented in this encounter"
--- OUTSIDE RECORDS SUMMARY | ~2019-06-13 | XMS | Encounter Summary ---
Demographics + + + | Address | [address] | | | [place] [address] | + + + | Home Phone | | + + + | Preferred Language | Unknown | + + + | Marital Status | | + + + | Tenriism Affiliation | Unknown | + + + | Race | Unknown | + + + | Ethnic Group | Unknown | + + + Author + + + | Author | [facility] | | | and [place] | + + + | Organization | [facility] | | | and [place] | + + + | Address | Unknown | + + + | Phone | Unavailable | + + + Support + + + + + | Name | Relationship | Address | Phone | + + + + + | Poncho Oquendo | ECON | [address] | | | | | [place] | | | | | [address] | | + + + + + | Marta Upton | ECON | [place] | | | | | [address] | | + + + + + Care Team Providers + +------+ + | Care Peer Counselor Name | Role | Phone | [...] [place] | | | | | [address] [place] | [place] [address] | | | | | [place] [address] | [phone] | | | | | [phone] | | | +--------+ + + + [...] [place]AI | | | | | | [place] [address] | | | | | | [phone] | | | | | | | | +--------+---------+ + + + documented as of this encounter Visit Diagnoses + + | Diagnosis | + + | Gallbladder cancer, 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
--- OUTSIDE RECORDS SUMMARY | ~2019-06-13 | XMS | Encounter Summary ---
Demographics + + + | Address | [address] | | | [place] [address] | + + + | Home Phone [...] Providers + +------+ + | Care Assistant Secretary Name | Role | Phone | + +------+ + | Valeriy Carmona MD | PCP | | + +------+ + Encounter Details +--------+ + + + + | Date | Type | Department | Care Team | Description | +--------+ + + + + | 03/23/ | Hospital | [facility] | | | | 2016 | Encounter | [address] | | | | | | [place] | | | | | | [address] | | | +--------+ + + + [...] | + +--------+ + + + | [facility] SOLID | Routin | 03/23/2016 | | Results for this | | TUMOR PANEL | e | | | procedure are in the | | | | | | results section. | + +--------+ + + + documented in this encounter Results [employer] SOLID TUMOR PANEL (03/23/2016) + + + + + + | Component | Value | Ref Range | Performed | Pathologist | | | | | At | Signature | + + + + + + | [facility] | [facility] | | [facility] | | | SOLID TUMOR | PanelSpecimen Type: (1) | | DIAGNOSTIC | | | PANEL | H&E (1) HER-2 IHC (7) | | | | | | Unstained slides: Right | | LABORATORIE | | | | ovary andtube, uterus, | | S | | | | and cervix; Specimen | | | | | | Acquisition Date: | | | | | | 06/06/2014Supplemental | | | | | | indications: | | | | | | Neuroendocrine carcinoma | | | | | | Patient | | | | | | Results:Specimen tested: | | | | | | Right ovary and tube, | | | | | | uterus and | | | | | | cervixReported | | | | | | diagnosis: | | | | | | Neuroendocrine | | | | | | carcinoma | | | | | | Solid Tumor Panel | | | | | | | | | | | | Variant(s) | | | | | | of Unknown Significance | | | | | | (Tier III*) | | | | | | Positive for MSH2 | | | | | | p.[id number].MSH2 encodes a | | | | | | tumor suppressor | | | | | | involved in DNA mismatch | | | | | | repair. Selectmutations | | | | | | of MSH2 are associated | | | | | | with Pink syndrome and | | | | | | can lead togenomic | | | | | | instability via | | | | | | microsatellite | | | | | | instability in tumors. | | | | | | This varianthas not been | | | | | | reported in [employer], and | | | | | | its clinical | | | | | | significance is unknown. | | | | | | Positive for TP53 | | | | | | p.R248Q. Codon 248, | | | | | | which occurs in the | | | | | | DNA-bindingdomain, is a | | | | | | known hotspot for TP53 | | | | | | mutations in a variety | | | | | | of differenttumors | | | | | | according to the [employer] | | | | | | database. The TP53 | | | | | | gene encodes a | | | | | | tumorsuppressor protein | | | | | | that responds to diverse | | | | | | cellular stresses to | | | | | | regulateexpression of | | | | | | target genes, thereby | | | | | | inducing cell cycle | | | | | | arrest, | | | | | | apoptosis,senescence, | | | | | | DNA repair, or changes | | | | | | in metabolism. | | | | | | *Genomic variants | | | | | | classified in accordance | | | | | | with recommendations | | | | | | byAMP/ASCO/CAP (Li et | | | | | | al. Birdie Vines Diag 19(1), | | | | | | February 2016). | | | | | | Possible Clinical Trials | | | | | | | | | | | | No clinical trials | | | | | | were found matching the | | | | | | search criteria. | | | | | | Next-Generation | | | | | | Sequencing Details | | | | | | | | | | | | The following | | | | | | genes were negative in | | | | | | this analysis, unless | | | | | | otherwise listedabove. | | | | | | AKT1 CDKN1B | | | | | | FANCM KIT | | | | | | NTRK1 [id number] | | | | | | CDKN2A FGF18 | | | | | | KRAS NTRK2 | | | | | | [id number] CHEK1 | | | | | | FGF19 MAP2K1 | | | | | | NTRK3 YCB95HAHR | | | | | | CHEK2 FGF3 | | | | | | MAP2K2 PALB2 | | | | | | BCS7OBO CTNNB1 | | | | | | FGF4 MAP2K4 | | | | | | LEEI3TL1 VQWB0AA | | | | | | DDR2 FGFR1 MAPK1 | | | | | | PDGFRA | | | | | | HL1EBJQ DDX11 | | | | | | FGFR2 MDC1 PIK3CA | | | | | | HNZVORX2Q EGFR | | | | | | FGFR3 MDM2 PIK3CB | | | | | | RICTORATM ERBB2 | | | | | | FGFR4 MDM4 | | | | | | PIK3R1 PVR7ODX | | | | | | ERBB3 GNA11 | | | | | | MET PMS1 FMI5ERU0 | | | | | | ERBB4 GNAQ MLH1 | | | | | | PMS2 RPTORBARD1 | | | | | | ERCC2 GNAS MLH3 | | | | | | POLE CVCF7BIZF ERCC5 | | | | | | NHLE2T8Z MRE11A | | | | | | WYG6C5D JIHW7RQJM7 | | | | | | ESR1 HRAS MSH2 | | | | | | PPP6C HOM23QKXS5 | | | | | | SKS677G IDH1 | | | | | | MSH6 PTCH1 | | | | | | NHS7RCUL3 FANCA | | | | | | IDH2 MTOR PTEN | | | | | | [id number] FANCC | | | | | | IDO1 MUTYH | | | | | | RAC1 YJH6ZCSR2 | | | | | | FANCD2 IDO2 MYC | | | | | | RAD50 YWZ6LCWZ1 | | | | | | FANCE INPP4B | | | | | | NBN RAD51 | | | | | | [id number] FANCF | | | | | | JAK2 NF1 | | | | | | [id number] | | | | | | FANCG KDR NRAS | | | | | | RAD51C Assay | | | | | | QC:Estimated tumor | | | | | | content in material | | | | | | tested: 80%Average read | | | | | | depth: 5138 per amplicon | | | | | | Assay | | | | | | Information: This test | | | | | | is designed to detect | | | | | | alterations in theabove | | | | | | panel of genes, which | | | | | | are known to play a role | | | | | | in cancer growth. | | | | | | Eachspecimen is examined | | | | | | microscopically and | | | | | | genomic DNA is extracted | | | | | | fromdissected, | | | | | | tumor-rich areas. | | | | | | Mutations are screened | | | | | | by massively | | | | | | parallelsequencing using | | | | | | a combination of | | | | | | multiplexed PCR and | | | | | | sequencing on anIllumina | | | | | | platform. The panel | | | | | | covers target exons and | | | | | | flanking | | | | | | intronicsequences for | | | | | | all of the listed genes, | | | | | | with the exception of a | | | | | | few coveragegaps | | | | | | (further information | | | | | | available upon request). | | | | | | The minimum | | | | | | detectablemutant allele | | | | | | ratio ranges between 5% | | | | | | and 15%, depending on | | | | | | sequence readdepth. The | | | | | | minimum required | | | | | | coverage is 100 reads | | | | | | per gene segment | | | | | | (15%sensitivity). It | | | | | | should be noted in | | | | | | regard to insertions and | | | | | | deletions thatthis test | | | | | | is biased toward the | | | | | | shorter alterations. A | | | | | | loss of ?1 gene copyis | | | | | | detectable with high | | | | | | confidence (>99%) in | | | | | | samples with at least | | | | | | 60%tumor cellularity; | | | | | | loss of 2 gene copies is | | | | | | detectable with high | | | | | | confidencein samples | | | | | | with at least 30% tumor | | | | | | cellularity. | | | | | | Additional Details on | | | | | | Mutations Identified: | | | | | | Gene Transcript | | | | | | cDNA Ever Genome | | | | | | Chrom Start | | | | | | End Ref Ever | | | | | | MSH2 [id number] | | | | | | c.980C>T hg19 chr2 | | | | | | [id number] C | | | | | | TTP53 [id number] | | | | | | c.743G>A hg19 chr17 | | | | | | [id number] [id number] | | | | | | C T | | | | | | (Analyte specific | | | | | | reagents are used in | | | | | | many laboratory tests | | | | | | necessary forstandard | | | | | | medical care and | | | | | | generally do not require | | | | | | FDA approval. This | | | | | | testwas developed and | | | | | | its performance | | | | | | characteristics | | | | | | determined by [facility] | | | | | | [facility] | | | | | | [facility]; CLIA # | | | | | | [id number]. It has not | | | | | | been cleared orapproved | | | | | | by the U.S. Food and | | | | | | Drug Administration.) | | | | | | Case reviewed | | | | | | by:Mode Ricketts, | | | | | | M.Hamzah /Pathologist | | | | | | | | | | | | This test was | | | | | | developed and its | | | | | | performance | | | | | | characteristics | | | | | | determined bythe [facility] | | | | | | [facility] | | | | | | [facility] | | | | | | [facility]. | | | | | | Ithas not been cleared | | | | | | or approved by the Food | | | | | | and Drug | | | | | | Administration. | | | | | | FDAapproval is not | | | | | | required for the | | | | | | clinical use of the | | | | | | test, and | | | | | | thereforevalidation was | | | | | | done as required under | | | | | | the requirements of the | | | | | | ClinicalLaboratory | | | | | | Improvement Act of 1987. | | | | | | [facility] | | | | | | DiagnosticsLaboratories | | | | | | are fully licensed by | | | | | | the state of [place] | | | | | | under CLIA and | | | | | | areaccredited by [place] | | | | | | of [place] | | | | | | Pathologists (CAP). | | | | | | Rendering | | | | | | Diagnostician: Mode | | | | | | Marcus Ricketts | | | | | | MaycolPathologistElectroni | | | | | | analia Signed 04/07/2016 | | | | | | 10:10AM | | | | + + + [...] | + + + + + | [facility] | [address] | [place] [address] | | | DIAGNOSTIC | [address] | | | | LABORATORIES | | | | + + + + + documented in this encounter Visit Diagnoses Not on filedocumented in this encounter"
--- OUTSIDE RECORDS SUMMARY | ~2019-06-13 | XMS | Encounter Summary ---
Demographics + + + | Address | [address] | | | [place] [address] | + + + | Home Phone [...] Author | [facility] | | | and [place] | + + + | Organization | [facility] | | | and [place]ardo[place] | + + + | Address | Unknown | + + + | Phone | Unavailable | + + + Support + + + + + | Name | Relationship | Address | Phone | + + + + + | Poncho Oquendo | ECON | [address] | | | | | [place] | | | | | [address] | | + + + + + | Marta Upton | ECON | [place] | | | | | [address] | | + + + + + Care Team Providers + +------+ + | Care Human Development Professor Name | Role | Phone | + +------+ + | Valeriy Carmona DO | PCP | | + +------+ + Encounter Details +--------+ + + + + | Date | Type | Department | Care Team | Description | +--------+ + + + + | 09/03/ | Orders Only | [facility] | [place], | Cholangiocarcinoma | | 2015 | | MED CTR PROVIDER | Epifanio Soler MD [address] | ([facility]) (Primary Dx) | | | | ONCOLOGY [address] [place] | | | | | [place], | [place] [address] | | | | | [place] [address] | [phone] | | | | | [phone] | | | +--------+ + + + [...] [address] | | | | | | [place] [address] | | | | | | [phone] | | | | | | | | +--------+---------+ + + + documented as of this encounter Visit Diagnoses + + | Diagnosis | + + | 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
--- OUTSIDE RECORDS SUMMARY | ~2019-06-13 | XMS | Encounter Summary ---
Demographics + + + | Address | [address] | | | [place] [address] | + + + | Home Phone [...] + | Author | [facility] | | | and [place] | + + + | Organization | [facility] | | | and [place] | + + + | Address | Unknown | + + + | Phone | Unavailable | + + + Support + + + + + | Name | Relationship | Address | Phone | + + + + + | Poncho Oquendo | ECON | [address] | | | | | [place] | | | | | [address] | | + + + + + | Marta Upton | ECON | [place] | | | | | [address] | | + + + + + Care Team Providers + +------+ + | Care Credit Administrator Name | Role | Phone | [...] | | | | | Procedures | [address] | [place] | | | | | [place] OFFICE | Phone: | [phone] Phone: | | | | | OUTPATIENT | [phone] | [phone] | | | | | VISIT 25 | Fax: | Fax: | | | | | MINUTES | [phone] | [phone] | +--------+--------+ + + + + Encounter Details +--------+ + + + + | Date | Type | Department | Care Team | Description | +--------+ + + + + | 10/31/ | Hospital | [facility] | [facility], | Gallbladder cancer, | | 2015 | Encounter | MED CTR MEDICAL | Chad Soler MD [address] | carcinoma (HCC) | | | | ONCOLOGY CLINIC [address] [place] | (Primary Dx); | | | | [facility] | [place] [address] | Neoplasm related | | | | [place] [address] | [phone] | pain (acute) | | | | [phone] | | (chronic) | +--------+ + + [...] as of this encounter Progress Notes Chad iRggins MD - 10/31/2014 9:08 AM PDTFormatting of this note might be differe nt from the original. Hematology/Oncology Progress Note [facility] Pt. Name/Age/: Aura Upton 53 y.o. 1960 Med. Record Number: [id number] Date of admission: 10/31/2014 Identifying Statement: Aura Upton is a 53 y.o. female from [address] [place] [address] with Recurrent Cholangiocarcinoma. The patient chart and [...] Brandon Garcia March 29, 2012, pathological specimen [id number], analyzed by Dr. Bowers of [facility] and was notable for a poorly-differentiated adenoc arcinoma of the gallbladder. Liver biopsy demonstrated mild portal inflammation. 2. On April 28, 2012, she successfully underwent an R0 resection by Dr. Tai Stanton at [facility], pathological specimen [id number] was notable for the absence of any residual carcinoma within the gallbladder bed. However, 2/8 regional lym ph nodes contained regionally metastatic disease. 3. Consultation by Dr. Elva Grey of the [facility] on May returned the recommendation for adjuvant chemoradiation therapy following [id number] as follows: Capecitabine at 750 mg/m sq [...] staging by Dr. Oziel Casillas of the [facility]. Pathological analysis was notable for 9.5 [...] 7. Consultation with Dr. Elva Grey the [facility] in June 26, 2014 who recommended additional chemotherapy was cisplatin at 75 mg meter squared on day 1 a nd gemcitabine 1250 mg per meter squared on day one and day 8 of acute 21 day cycle for 6-8 cycles. A second opinion was obtained by Dr. Richie Thayer of the [facility] iance who returned the recommendation for [...] the recommendations of Dr. Richie Thayerof the [facility] with gemcitabine at 1000 mg per meter squared on day one and day 8 wi th cisplatin 25 mg meter squared on day one and day 8 of a Q 21 day cycle beginning on July 26, 2014 complicated by grade 3 neutropenia and grade [address]ocyt[address] scan of the chest, abdomen and pelvis that [facility] on September 16, 2014 demonstrated no radiographic evidence of disease. Current Assessment & Plan Domo returned to clinic with her mother to initiate cycle #5 of cisplatin/gemcitabine for recurrent cholangiocarcinoma. 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 Previous analysis at [facility] in [place] confirmed adeq uate iron stores. A request for HIGINIO therapy was denied by her insurance provider. Plan; Initiate Cycle #5 Cis/gemcitabine for recurrent cholangiocarcioma. Treatment will be continued in [place] next week. Repeat imaging after Cycle#6 and if favorable, cross over to observation. Neoplasm related pain (acute) (chronic) Overview Pain due to recurrent cholangiocarcinoma. Current Assessment & Plan Patients with terminal and malignant pain will be exempt from the requirement for a writt en pain management agreement/narcotic contract. [[facility] Provider Maldonado ndbook of [...] has been changed since signin Order [facility] [place] amitriptyline (ELAVIL) 10 mg tablet (Taking) Take 10 mg by mouth nightly. dexamethasone (DECADRON) 4 mg tablet (Taking) Take one tablet PO as directed. Number of times this order has been changed since signin [facility] [place] docusate calcium (SURFAK) 240 mg capsule (Taking) Take 240 mg by mouth as needed. Number of times this order has been changed since signin [facility] [place] fish oil 1,000 mg capsule (Taking) Take 1,000 mg by mouth Daily. Number of times this order has been changed since signin [facility] [place] HYDROcodone-acetaminophen (VICODIN) 5-500 mg per tablet (Taking) Take 1 tablet by mouth e very 4 hours as needed. Number of times this order has been changed since signin [facility] [place] MULTIPLE VITAMIN PO (Taking) Take by mouth Daily. Number of times this order has been changed since signin Order [facility] [place] ondansetron (ZOFRAN ODT) 8 mg disintegrating tablet (Taking) Take 8 mg by mouth every 8 h ours as needed for Nausea. Probiotic Product (PROBIOTIC DAILY PO) (Taking) Take by mouth Daily. Number of times this order has been changed since signin [facility] [place] Allergy: Allergies Allergen Reactions Sulfa Antibiotics Objectives: Temp: 37 C (98.6 F) BP: 111/70 mmHg Pulse: 86 Resp: 16 SpO2: 99 % on Min/Max Temp past 24 hours:Temp Av C (98.6 F) Min: 37 C (98.6 F) Max: 37 C (98.6 F) No intake or output data in the 24 hours ending 10/31/14 7108 Wt. Admission: Weight: 83.5 kg (184 lb [...] appropriate for HIGINIO therapy ( contact Gabrielle eBan RN at [facility] or [place]). Begin procrit today. INFORMED CONSENT: The nature and character of the proposed treatment with Cisplatin and Murray citabine with HIGINIO therapy with Procrit and [...] for three days, on day 2,3,4 at [facility]. Gabrielle has the order and has [...] this chart may have been created with [employer] voice recognition software. Occasi onal wrong-word or [...] 2019 | Visit | | DO [address] | | | | | | [place] [address] | | | | | | [phone] | | | | | | | | +--------+---------+ + + + documented as of this encounter Visit Diagnoses + + | Diagnosis | + + | Gallbladder cancer, carcinoma (HCC) - Primary Malignant neoplasm of gallbladder | + + | Neoplasm related pain (acute) (chronic) | + + documented in this encounter
--- OUTSIDE RECORDS SUMMARY | ~2019-06-13 | XMS | Encounter Summary ---
Demographics + + + | Address | [address] | | | [place] [address] | + + + | Home Phone | | + + + | Preferred Language | Unknown | + + + | Marital Status | | + + + | Latter Day Affiliation | Unknown | + + + | Race | Unknown | + + + | Ethnic Group | Unknown | + + + Author + + + | Author | [facility] | | | and [place] | + + + | Organization | [facility] | | | and [place] | + + + | Address | Unknown | + + + | Phone | Unavailable | + + + Support + + + + + | Name | Relationship | Address | Phone | + + + + + | Poncho Oquendo | ECON | [address] | | | | | [place] | | | | | [address] | | + + + + + | Marta Upton | ECON | [place] | | | | | [address] | | + + + + + Care Team Providers + +------+ + | Care Computer Systems Integrator Name | Role | Phone | + [...] | ONCOLOGY CLINIC [address] | [facility] | | | | | [address] [facility] | [place] [address] | | | | | [place] [address] | [phone] | | | | | [phone] | | | +--------+ + + + [...] | | | | | [place] [address] | | | | | | [phone] | | | | | | | | +--------+---------+ + + + documented as of this encounter Visit Diagnoses Not on filedocumented in this encounter"
--- OUTSIDE RECORDS SUMMARY | ~2019-06-13 | XMS | Encounter Summary ---
Demographics + + + | Address | [address] | | | [place] [address] | + + + | Home Phone [...] [facility] | | | and [place] | + + + | Organization | [facility] | | | and [place] | + + + | Address | Unknown | + + + | Phone | Unavailable | + + + Support + + + + + | Name | Relationship | Address | Phone | + + + + + | Poncho Oquendo | ECON | [address] | | | | | [facility] [place] | | | | | [address] | | + + + + + | Marta Upton | ECON | [place], [place] | | | | | [address] | | + + + + + Care Team Providers + +------+ + | Care Tangled Yarn Spool Straightener Name | Role | Phone | + +------+ + | No, Physician | PCP | Unavailable | + +------+ + Encounter Details +--------+ + + + + | Date | Type | Department | Care Team | Description | +--------+ + + + + | 04/26/ | Anesthesia | [facility] | [place] | | | 2019 | Event | REGIONAL SURGERY | [address] | | | | | CENTER INTRA OP | [address] | | | | | [address] | [place] [address] | | | | | [place], [place] | [phone] | | | | | [address] | | | | | | [phone] | | | +--------+ + + + [...] [address] | | eral | Forearm; hjhk-kgp-cdcajh catheter | Jamila Aguila, | Cindy Casarez [...] [address] | | | | | | [place] [address] | | | | | | [phone] | | | | | | | [...]
--- OUTSIDE RECORDS SUMMARY | ~2019-06-13 | XMS | Encounter Summary ---
Demographics + + + | Address | [address] | | | [place] [address] | + + + | Home Phone [...] Team Providers + +------+ + | Care Parking Lot Spotter Name | Role | Phone | + +------+ + | Valeriy Carmona MD | PCP | | + +------+ + Encounter Details +--------+ + + + + | Date | Type | Department | Care Team | Description | +--------+ + + + + | 12/23/ | Outside | UNKNOWN DEPARTMENT | Other, Faculty | | | 2018 | Records | [address] | [phone] | | | | | [address] | | | | | | [place], [place] | | | | | | [address] | | | +--------+ + + + [...] + +--------+ + + + | OUTSIDE RADIOLOGY - | | 12/23/2017 | | Results for this | | X-RAY | | 12:00 AM | | procedure are in the | | | | PST | | results section. | + +--------+ + + + documented in this encounter Results OUTSIDE RADIOLOGY - X-RAY (12/23/2017 12:00 AM PST) + + + | Narrative | Performed At | + + + | | | + + + documented in this encounter Visit Diagnoses Not on filedocumented in this encounter"
--- OUTSIDE RECORDS SUMMARY | ~2019-06-13 | XMS | Encounter Summary ---
Demographics + + + | Address | [address] | | | [place] [address] | + + + | Home Phone [...] | Author | [facility] | | | and [place] | + + + | Organization | [facility] | | | and [place] | + + + | Address | Unknown | + + + | Phone | Unavailable | + + + Support + + + + + | Name | Relationship | Address | Phone | + + + + + | Poncho Oquendo | ECON | [address] | | | | | [place] | | | | | [address] | | + + + + + | Marta Upton | ECON | [place] | | | | | [address] | | + + + + + Care Team Providers + +------+ + | Care Coding Advisor Name | Role | Phone | [...] Required | | Cholangiocar | [address] | [address] | | | | | cinoma (HCC) | [place] | [address] | | | | | | [place], [place] | [place], | | | | | | [address] | [place] [address] | | | | | | Phone: | Phone: | | | | | | [phone] | [phone] | | | | | | Fax: | Fax: | | | | | | [phone] | [phone] | +--------+ + + + + + [...] [address] | | | | | [address] [place], | | | | | | [place] [address] | | | | | | [phone] | | | +--------+ + + + [...] [address] | | | | | | [place] [address] | | | | | | [phone] | | | | | | | | +--------+---------+ + + + + + +--------+ + + | Name | Type | Priori | Associated Diagnoses | Order Schedule | | | | ty | | | + + +--------+ + + | Ambulatory referral | Outpatient | Routin | Cholangiocarcinoma | Ordered: 07/02/2014 | | to Nutrition | Referral | e | ([facility]) | | | Services | | | | | + + +--------+ + + documented as of this encounter Visit Diagnoses + + | Diagnosis | + + | 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
--- OUTSIDE RECORDS SUMMARY | ~2019-06-13 | XMS | Encounter Summary ---
Demographics + + + | Address | [address] | | | [place] [address] | + + + | Home Phone [...] | | | | | | | [place], [place] | | | | | | | [address] | | | | | | | Phone: | | | | | | | [phone] | | | | | | | Fax: | | | | | | | [phone] | +--------+--------+ + + + + Encounter Details +--------+---------+ + + + | Date | Type | Department | Care Team | Description | +--------+---------+ + + + | 03/07/ | Office | [facility] | Aamir Lau, | Chronic Ethmoidal | | 2008 | Visit | [facility] | MD [address] | Sinusitis | | | | [address] | [place], [place] | | | | | Mailcode: KAREEN | [address] | | | | | [facility] | [phone] | | | | | and Healing, | | | | | | Building | | | | | | Floor [place], [place] | | | | | | [address] | | | | | | [phone] | | | +--------+---------+ + + + [...] documentation. Aamir Lau M.D., M.P.H., F.A.C.S. Director, [facility] Professor and Chief, Rhinology and Sinus Surgery Department of Otolaryngology/Head and Neck Surgery Faustina Olvera MD - 03/07/2008 3:51 PM PST HPI: Aura Upton is a 47 y.o. female who presents to the [facility] for foll ow up of S/P Sinus Surgery (septoplasty) with Dr. Benedict in [place]. Current symptoms inc lude nasal congestion. Symptoms [...] | + + +--------+ + + | HI NASAL | Procedures | Routin | Chronic Ethmoidal | Ordered: 03/07/2008 | | ENDOSCOPY,DX | | e | Sinusitis | | + + +--------+ + + documented as of this encounter Visit Diagnoses + + | Diagnosis | + + | Chronic ethmoidal sinusitis | + + documented in this encounter"
--- OUTSIDE RECORDS SUMMARY | ~2019-06-13 | XMS | Encounter Summary ---
Demographics + + + | Address | [address] | | | [place] [address] | + + + | Home Phone [...] + | Author | [facility] | | | and Eduardoana | + + + | Organization | [facility] | | | and Eduardoana | + + + | Address | Unknown | + + + | Phone | Unavailable | + + + Support + + + + + | Name | Relationship | Address | Phone | + + + + + | Poncho Oquendo | ECON | [address] | | | | | [place] | | | | | [address] | | + + + + + | Marta Upton | ECON | [place] | | | | | [address] | | + + + + + Care Team Providers + +------+ + | Care Machine Operations Supervisor Name | Role | Phone [...] [place] | | | | | [address] [place] | [place] [address] | | | | | [place] [address] | [phone] | | | | | [phone] | | | +--------+ + + + [...] [address] | | | | | | [place] [address] | | | | | | [phone] | | | | | | | | +--------+---------+ + + + documented as of this encounter Visit Diagnoses + + | Diagnosis | + + | 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
--- OUTSIDE RECORDS SUMMARY | ~2019-06-13 | XMS | Encounter Summary ---
Demographics + + + | Address | [address] | | | [place] [address] | + + + | Home Phone [...] Author | [facility] | | | and Eduardoana | + + + | Organization | [facility] | | | and Eduardoana | + + + | Address | Unknown | + + + | Phone | Unavailable | + + + Support + + + + + | Name | Relationship | Address | Phone | + + + + + | Poncho Oquendo | ECON | [address] | | | | | [facility] [place] | | | | | [address] | | + + + + + | Marta Upton | ECON | [place], [place] | | | | | [address] | | + + + + + Care Team Providers + +------+ + | Care Group Rooms Coordinator Name | Role | Phone | + +------+ + PCP | Unavailable | + +------+ + Encounter Details +--------+ + + + + | Date | Type | Department | Care Team | Description | +--------+ + + + + | 01/15/ | Hospital | [facility] | | | | 2012 - | Encounter | MED CTR CANCER | | | | | | CENTER Alanna [place]riaza | | | | 02/13/ | | [place] | | | | 2012 | | [address] | | | | | | [phone] | | | +--------+ + + + [...] [address] | | | | | | [place] [address] | | | | | | [phone] | | | | | | | [...] + | [facility] | [address] | [place] | [phone] | | [facility] | | [address] | | | - LABORATORY | | | | + + + + + | [facility] | [address] | [place] | | | [facility] | | [address] | | | [...] Agee | | | | | | [address] CLIA: | | | | | | [id number] | | | | + + + + + + + + | Specimen | + + | | + + + + + + + | Performing | Address | City/State/Zipcode | Phone Number | | Organization | | | | + + + + + | [facility] | [address] | [place] | [phone] | | [facility] | | [address] | | | - LABORATORY | | | | + + + + + | [facility] | [address] | [place] | | | [facility] | | [address] | | | - LABORATORY [...] 11 | 7 - 18 mg/dL | [facility] | | | | | | [facility] | | | | | | MEDICAL | | | | | | CENTER - | | | | | | LABORATORY | | + + + + + + | Creatinine | 0.77 | 0.60 - 1.30 | [facility] | | | | | mg/dL [...] + | [facility] | [address] | [place], [place] | [phone] | | [facility] | | [address] | | | - LABORATORY | | | | + + + + + | [facility] | [address] | [place], [place] | | | [facility] | | [address], [facility] | | | - LABORATORY [...] [address] | [place] | [phone] | | [facility] | | [address] | | | - LABORATORY | | | | + + + + + | [facility] | [address] | [place] | | | [facility] | | [address] | | | - LABORATORY | | | | + + + + + documented in this encounter Visit Diagnoses Not on filedocumented in this encounter"
--- OUTSIDE RECORDS SUMMARY | ~2019-06-13 | XMS | Encounter Summary ---
Demographics + + + | Address | [address] | | | [place] [address] | + + + | Home Phone [...] Team Providers + +------+ + | Care Warper Creeler Name | Role | Phone | + +------+ + | Tomasa Wagner | PCP | | + +------+ + Encounter Details +--------+ + + + + | Date | Type | Department | Care Team | Description | +--------+ + + + + | 05/24/ | MyChart | [facility] | Miguel Seymour, | RE: Share Info with | | 2014 | Encounter | [facility] | [address] | Dr. Tai Stanton | | | | [place] [address] | [facility] | | | | | [address] | [place], [place] | | | | | [place], [facility] | [address] | | | | | [place], [place] | [phone] | | | | | [address] | | | | | | [phone] | | | +--------+ + + + [...]
--- OUTSIDE RECORDS SUMMARY | ~2019-06-13 | XMS | Encounter Summary ---
Demographics + + + | Address | [address] | | | [place] [address] | + + + | Home Phone [...] Team Providers + +------+ + | Care Pyrotechnic Assembler Name | Role | Phone | [...] | | | Reconstructive | Velma [place], | | | | | Services at [facility] | [place] [address] | | | | | [address] | [phone] | | | | | Mailcode: [facility] | | | | | | [facility] | | | | | | and Healing, | | | | | | Building , | | | | | | [place], [place] | | | | | | [address] | | | | | | [phone] | | | +--------+ + + + [...]
--- OUTSIDE RECORDS SUMMARY | ~2019-06-13 | XMS | Encounter Summary ---
Demographics + + + | Address | [address] | | | [place] [address] | + + + | Home Phone [...] Author | [facility] | | | and Eduardoana | + + + | Organization | [facility] | | | and Eduardoana | + + + | Address | Unknown | + + + | Phone | Unavailable | + + + Support + + + + + | Name | Relationship | Address | Phone | + + + + + | Poncho Oquendo | ECON | [address] | | | | | [place] | | | | | [address] | | + + + + + | Marta Upton | ECON | [place] | | | | | [address] | | + + + + + Care Team Providers + +------+ + | Care Supply Cataloguer Name | Role | Phone | + +------+ + | Valeriy Carmona DO | PCP | | + +------+ + Encounter Details +--------+ + + + + | Date | Type | Department | Care Team | Description | +--------+ + + + + | 10/18/ | Orders Only | [facility] | Reinaldo, | Cholangiocarcinoma | | 2015 | | MED CTR PROVIDER | Epifanio Soler MD [address] | ([facility]) (Primary Dx) | | | | ONCOLOGY [address] [place] | | | | | [place], | [place] [address] | | | | | [place] [address] | [phone] | | | | | [phone] | | | +--------+ + + + [...] [address] | | | | | | [place] [address] | | | | | | [phone] | | | | | | | | +--------+---------+ + + + documented as of this encounter Visit Diagnoses + + | Diagnosis | + + | 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
--- OUTSIDE RECORDS SUMMARY | ~2019-06-13 | XMS | Encounter Summary ---
Demographics + + + | Address | [address] | | | [place] [address] | + + + | Home Phone | | + + + | Preferred Language | Unknown | + + + | Marital Status | | + + + | Pentecostalism Affiliation | Unknown | + + + | Race | Unknown | + + + | Ethnic Group | Unknown | + + + Author + + + | Author | [facility] | | | and Eduardoana | + + + | Organization | [facility] | | | and Eduardoana | + + + | Address | Unknown | + + + | Phone | Unavailable | + + + Support + + + + + | Name | Relationship | Address | Phone | + + + + + | Poncho Oquendo | ECON | [address] | | | | | [facility] [place] | | | | | [address] | | + + + + + | Marta Upton | ECON | [place], [place] | | | | | [address] | | + + + + + Care Team Providers + +------+ + | Care C D Stripper Name | Role | Phone | + +------+ + PCP | Unavailable | + +------+ + Encounter Details +--------+ + + + + | Date | Type | Department | Care Team | Description | +--------+ + + + + | 07/15/ | Hospital | [facility] | Dale Taylor MD | | | 2011 | Encounter | MED CTR XRAY [address] | [address] [place] | | | | | [place] | [address] [place], | | | | | [place] [address] | [place] [address] | | | | | [phone] | [phone] | | | | | | | [...] [address] | | | | | | [place] [address] | | | | | | [phone] | | | | | | | [...] Performed At | + + + | [facility] Diagnostic Imaging Department | [facility] | | [address] [facility] | [facility] | | MRI OF THE BRAIN EXTENDED [...] Transcribed Date/Time: 07/16/2011 12:57 | | | Civil Designer: <Electronically Signed by Mathieu Brasher, | | | > 07/16/11 7197 | | + + + + + | Procedure Note | + + | Edmundo, Rad Conversion - 03/23/2013 5:27 PM [facility] | | Diagnostic Imaging Department [address] [place] [address] | | MRI OF THE BRAIN EXTENDED [...] 12:45 | |Transcribed Date/Time: 07/16/2011 12:57 | |Civil Designer: | |<Electronically Signed by Mathieu Brasher MD> [...]
--- OUTSIDE RECORDS SUMMARY | ~2019-06-13 | XMS | Encounter Summary ---
Demographics + + + | Address | [address] | | | [place] [address] | + + + | Home Phone [...] Author | [facility] | | | and Eduardoana | + + + | Organization | [facility] | | | and Eduardoana | + + + | Address | Unknown | + + + | Phone | Unavailable | + + + Support + + + + + | Name | Relationship | Address | Phone | + + + + + | Poncho Oquendo | ECON | [address] | | | | | [place] | | | | | [address] | | + + + + + | Marta Upton | ECON | [place] | | | | | [address] | | + + + + + Care Team Providers + +------+ + | Care Agronomy Instructor Name | Role | Phone | + +------+ + | Valeriy Carmona DO | PCP | | + +------+ + Encounter Details +--------+ + + + + | Date | Type | Department | Care Team | Description | +--------+ + + + + | 05/07/ | Orders Only | [facility] | Marcelina Johnson, | | | 2016 | | MED CTR CHEMO | RN | | | | | INFUSION [address] | | | | | | [place], | | | | | | [place] [address] | | | | | | [phone] | | | +--------+ + + + [...] | | | | | [place] [address] | | | | | | [phone] | | | | | | | | +--------+---------+ + + + documented as of this encounter Visit Diagnoses Not on filedocumented in this encounter"
--- OUTSIDE RECORDS SUMMARY | ~2019-06-13 | XMS | Encounter Summary ---
Demographics + + + | Address | [address] | | | [place] [address] | + + + | Home Phone | | + + + | Preferred Language | Unknown | + + + | Marital Status | Single | + + + | Congregation Affiliation | NON | + + + [...] Providers + +------+ + | Care Group Practice Pediatrician Name | Role | Phone | + [...] | MD | | | | | [facility] 4th Floor [address] | | | | | | [address] | | | | | | Mailcode: [facility] | | | | | | [facility] | | | | | | and Healing, | | | | | | Building 1,4th Floor | | | | | | [place], [place] | | | | | | [address] | | | | | | [phone] | | | +--------+ + + + [...] + documented as of this encounter Progress Zhane Pang - 04/27/2012 1:41 PM PDTOR ticket brokerJeanine ,(name) called the Pre Operative [facility] on 04/27/12 (date) at 1pm(time) and requested delivery of the following inform ation to this patient: Surgery arrival date/ time:04/28/12 6am (date/time) Where [facility] (location) Information delivered to patient as requested. documented in this encounter Plan of Treatment Not on filedocumented as of this encounter Visit Diagnoses Not on filedocumented in this encounter"
--- OUTSIDE RECORDS SUMMARY | ~2019-06-13 | XMS | Encounter Summary ---
Demographics + + + | Address | [address] | | | [place] [address] | + + + | Home Phone [...] Team Providers + +------+ + | Care Janitorial Tech Name | Role | Phone | + +------+ + | Tomasa Wagner | PCP | | + +------+ + Reason for Visit + + + | Reason | Comments | + + + | Medical Records | [facility] - OUTSIDE RECORDS 06/24/14 Bookmarked Document (notes, labs, | | Review | imaging) | + + + Encounter Details +--------+ + + + + | Date | Type | Department | Care Team | Description | +--------+ + + + + | 06/25/ | Abstract | [facility] | Tai Stanton, | Medical Records | | 2015 | | Center at [facility] [address] | MD [address] | Review ([facility] - | | | | [facility] | [facility] | OUTSIDE RECORDS | | | | for Health and | [place], [place] | 06/24/14 Bookmarked | | | | [facility] 2 | [address] | Document (notes, | | | | [place], [place] | [phone] | labs, imaging)) | | | | [address] | | | | | | [phone] | | | +--------+ + + + [...]
--- OUTSIDE RECORDS SUMMARY | ~2019-06-13 | XMS | Encounter Summary ---
Demographics + + + | Address | [address] | | | [place] [address] | + + + | Home Phone [...] | Author | [facility] | | | and Eduardoana | + + + | Organization | [facility] | | | and Eduardoana | + + + | Address | Unknown | + + + | Phone | Unavailable | + + + Support + + + + + | Name | Relationship | Address | Phone | + + + + + | Poncho Oquendo | ECON | [address] | | | | | [place] | | | | | [address] | | + + + + + | Marta Upton | ECON | [place] | | | | | [address] | | + + + + + Care Team Providers + +------+ + | Care Plate Cleaner Name | Role | Phone | [...] | | | ONCOLOGY CLINIC [address] | [facility] | | | | | [facility] | [place] [address] | | | | | [place] [address] | [phone] | | | | | [phone] | | | +--------+--------+ + + + [...] [address] | | | | | | [place] [address] | | | | | | [phone] | | | | | | | | +--------+---------+ + + + documented as of this encounter Visit Diagnoses + + | Diagnosis | + + | 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
--- OUTSIDE RECORDS SUMMARY | ~2019-06-13 | XMS | Encounter Summary ---
Demographics + + + | Address | [address] | | | [place] [address] | + + + | Home Phone [...] | [facility] | | | and Eduardoana | + + + | Organization | [facility] | | | and Eduardoana | + + + | Address | Unknown | + + + | Phone | Unavailable | + + + Support + + + + + | Name | Relationship | Address | Phone | + + + + + | Poncho Oquendo | ECON | [address] | | | | | [place] | | | | | [address] | | + + + + + | Marta Upton | ECON | [place], [place] | | | | | [address] | | + + + + + Care Team Providers + +------+ + | Care Plastic Tile Setter Name | Role | Phone | + +------+ + PCP | Unavailable | + +------+ + Encounter Details +--------+ + + + + | Date | Type | Department | Care Team | Description | +--------+ + + + + | 01/15/ | Hospital | [facility] | | | | 2012 - | Encounter | MED CTR CANCER | | | | | | CENTER [place]anna [place]aza | | | | 02/13/ | | [place] | | | | 2012 | | [address] | | | | | | [phone] | | | +--------+ + + + [...] [address] | | | | | | [place] [address] | | | | | | [phone] | | | | | | | [...] + | [facility] | [address] | [place] | [phone] | | [facility] | | [address] | | | - LABORATORY | | | | + + + + + | [facility] | [address] | [place] | | | [facility] | | [address] | | | - LABORATORY | | [...] Agee | | | | | | [address] CLIA: | | | | | | [id number] | | | | + + + + + + + + | Specimen | + + | | + + + + + + + | Performing | Address | City/State/Zipcode | Phone Number | | Organization | | | | + + + + + | [facility] | [address] | [place] | [phone] | | [facility] | | [address] | | | - LABORATORY | | | | + + + + + | [facility] | [address] | [place] | | | [facility] | | [address] | | | - LABORATORY | | [...] 11 | 7 - 18 mg/dL | [facility] | | | | | | [facility] | | | | | | MEDICAL | | | | | | CENTER - | | | | | | LABORATORY | | + + + + + + | Creatinine | 0.77 | 0.60 - 1.30 | [facility] | | | | | mg/dL | [...] + | [facility] | [address] | [place], [place] | [phone] | | [facility] | | [address] | | | - LABORATORY | | | | + + + + + | [facility] | [address] | [place], [place] | | | [facility] | | [address], [facility] | | | - [...] [address] | [place] | [phone] | | [facility] | | [address] | | | - LABORATORY | | | | + + + + + | [facility] | [address] | [place] | | | [facility] | | [address] | | | - LABORATORY | | | | + + + + + documented in this encounter Visit Diagnoses Not on filedocumented in this encounter"
--- OUTSIDE RECORDS SUMMARY | ~2019-06-13 | XMS | Encounter Summary ---
Demographics + + + | Address | [address] | | | [place] [address] | + + + | Home Phone [...] Providers + +------+ + | Care Information Assurance Specialist Name | Role | Phone | [...] + + | 06/06/ | Hospital | [facility] [address]A [address] | Miguel Seymour, | | | 2015 - | Encounter | [address] | [address] [facility] | | | | | [place], [place] | [address] | | | 06/09/ | | [address] | [place], [place] | | | 2014 | | [phone] | [address] | | | | | | [phone] | | | | | | | [...] DISCHARGE SUMMARY Author: Roger Guadalupe MD PGY1 DIALYSIS NURSE Attending Physician: Dr. Henderson Admission Date: 06/06/2014 [...] to Get Your Medications You need to parts picker these prescriptions. We sent some of them to a specific pharmacy. Go t o these places to get your medications. [place] [facility] - enoxaparin 40 mg/0.4 mL Syrg [address] [facility] [address] Hours: 8AM-9PM Mon-Fri; 9-5:30PM Sat-Sun You may [...] To contact your provider, please call the [facility] clinic at [phone] during daytime hours. During evening or weekend hours, please call the [facility] paging melt down furnace operator at [phone] and ask for the [facility] staff on-call. Reasons to call the [...] stable Discharging Physician: Roger Guadalupe MD PGY1 DIALYSIS NURSE Service Pager: [phone] Attending Physician: Dr. Henderson I saw and [...] assessment and plan. Roger Guadalupe MD PGY1 DIALYSIS NURSE Service Pager: [phone] I saw and evaluated the patient. I agree with the findings and the plan of care as docgeorgen ashley in the resident s note. Patt Henderson M.D. Division of Gynecologic Oncology Department of Obstetrics and Gynecology Raghu Antony MD - 06/08/2014 1:09 PM PDTEpidural removed. Tip intact. Coagulation parameters appropria te for pulling. APS will sign off. Please call us back if we can be of further assistance. Primary service notified. RAGHU DALY MD [facility] [address] [facility], 4th Floor Mail Code: CH4P [place], [place] [address] Raghu Antony MD - 06/08/2014 8:52 AM PDT INPATIENT ADULT PAIN SERVICE NEURAXIAL BLOCK PROGRESS NOTE 06/08/2014 Author: RAGUH DALY MD Pain Service Attending Physician: Raghu [...] recommendations with primary care team provider manager gyn/oncology. RAGHU DALY MD BILLING INFORMATION [facility] DEPARTMENT: [id number] Place of Service:- Inpatient Date of Service: 06/08/2014 CSN: [id number] Suggested Modifier: None Suggested CPT: 31567 - Daily mgmt epidural/subarachnoid drug administration Prolonged service: n/a Counseling and Coordination: n/a Miguel Alejandro MD - 06/08/2014 8:00 AM PDT GYNECOLOGY [...] assessment and plan. Roger Guadalupe MD PGY1 DIALYSIS NURSE Service Pager: [phone] I saw and evaluated the patient. I [...] separate note in EPIC). RAGHU DALY MD [facility] [address] [facility], 4th Floor Mail Code: [address] [address] alika, Raghu Coello MD - 06/07/2014 7:39 AM PDT INPATIENT [...] 2/10. Specific activitie s that exacerbate Ms. Bobs pain include most activities. Ms. Upton is [...] care team provider . RAGHU DALY MD [facility] [address] [facility], 4th Floor Mail Code: CH4P [place], [place] [id number] BILLING INFORMATION [facility] DEPARTMENT: [id number] Place of Service:- Inpatient Date of Service: 06/07/2014 CSN: [id number] Suggested Modifier: GC - Resident Involved Suggested CPT: 56521 - Daily mgmt epidural/subarachnoid drug administration Prolonged [...] this note might be different from the [facility] GYNECOLOGY ONCOLOGY INPATIENT PROGRESS NOTE Hospital Day: [...] | Abdominal or | | | LAPAROSCOPY (DIRECTOR SPEECH | ve | 7:27 AM | pelvic [...] + +--------+ + + + | NON DIRECTOR SPEECH CYTOLOGY | Routin | 06/06/2014 | | [...] + + + + + | [facility] | [address] | [place] [address] | | | SERVICES, CORE | PARK [...] | + + + + + | [facility] | [address] | [place] [address] | | | SERVICES, CORE | NEAL [...] | | | LABORATORY | | | ALGERIAN | | | SERVICES, | | | [...] MDRD equation recommended by the | [facility] | | National Kidney Disease Education Program. [...] + + + + + | [facility] | [address] | [place] [address] | | | SERVICES, CORE | PARK [...] GWEN GARCIA | [address] | [place] [address] | | | SAM ALONSO | PARK [...] + + + + + | [facility] | [address] | [place] [address] | | | SERVICES, CORE | PARK [...] | | | LABORATORY | | | ALGERIAN | | | SERVICES, | | | [...] | + + + + + | [facility] | [address] | [place] [address] | | | SERVICES, CORE | [address] | | | + + + + + OPERATION RECORD (06/07/2014 8:30 AM PDT) + + | Transcriptions | + + | Miguel Seymour MD - 06/06/2014 12:48 PM PDT Date of Service: 06/06/2014 | | Attending Surgeon: Miguel Seymour MD Asset Protection Professional(s): | | Poncho Arriola MD. Anesthesia: General [...] 06/06/2014 11:52:24DT: 06/06/2014 12:48:01Job #: | | [id number] DEPARTMENT: [id number] DIRECTOR SPEECH ONC KPlace of Service: - | | IPDate of Service: 06/07/2014 : [id number] | | Modifier: NoneSuggested CPT: NoneSuggested Procedure [...] + + + + + | [facility] | [address] | [place] [address] | | | SERVICES, CORE | NEAL [...] + + + + + | [facility] | [address] | [place] [address] | | | SERVICES, CORE | PARK [...] | + + + + + | [facility] | [address] | [place] [address] | | | GAVIN, SAM | NEAL [...] [facility] | [address] | [place] [address] | | | SERVICES, CORE | PARK [...] | | | LABORATORY | | | ALGERIAN | | | SERVICES, | | | [...] | + + + + + | [facility] | [address] | [place] [address] | | | SERVICES, CORE | [address] | | | + + + + + NON DIRECTOR SPEECH CYTOLOGY (06/06/2014) + + + + + + | Component | Value | Ref Range | Performed | Pathologist | | | | | At | Signature | + + + + + + | NON-DIRECTOR SPEECH | SOURCE OF SPECIMEN:A | | [facility] [...] San | | | | | | CT(ASCP)Junior Sales Representative | | | | | | Electronically [...] | + + + + + | [facility] | [address] | [place] [address] | | | PATHOLOGY | [address] [...] | | | | | | corresponding [id number] | | | | | | B: [...] bed | | | | | | ([id number], slides E3-4). | | | | | [...] Pathology | | | | | | ResidentDavid Jacoby Smith, | | | | | | M.D./PathologistT:06/10/ | | | | | | 15/rdl (Analyte | | | | | | specific reagents are | | | | | | used in many laboratory | | | | | | tests necessary | | | | | | [facility] | | | | | | [...] | | | | | | s/pchemoXRT ([id number], | | | | | | [id number]); now with | | | | | [...] | | | | | | | Urology Physician | | | | | | sections [...] identified. | | | | | | Urology Physician | | | | | | sections [...] residueB3-6, | | | | | | aircraft sales representative sections | | | | | | of #1 external | | | | | | excrescenceB7-8, #2 | | | | | | external | | | | | | excrescenceB9-10, entire | | | | | | #3 external | | | | | | nnymrfwrmhgI45, | | | | | | aircraft sales representative sections | | | | | | of del rio-brown | | | | | | excrescences from inner | | | | | | cyst lfwxkwgjphB53-25, | | | | | | additional sections of | | | | | | papglC19, aircraft sales representative | | | | | [...] endomyometriumD5, | | | | | | aircraft sales representative sections | | | | | | of right ovaryD6-9, | | | | | | aircraft sales representative sections | | | | | | of external ovarian | | | | | | dhrzevQ04-97, | | | | | | aircraft sales representative sections | | | | [...] | + + + + + | [facility] | [address] | [place] [address] | | | PATHOLOGY | [address] [...]
--- OUTSIDE RECORDS SUMMARY | ~2019-06-13 | XMS | Encounter Summary ---
Demographics + + + | Address | [address] | | | [place] [address] | + + + | Home Phone [...] | [facility] | | | and [place] | + + + | Organization | [facility] | | | and [place] | + + + | Address | Unknown | + + + | Phone | Unavailable | + + + Support + + + + + | Name | Relationship | Address | Phone | + + + + + | Poncho Oquendo | ECON | [address] | | | | | [facility] [place] | | | | | [address] | | + + + + + | Marta Upton | ECON | [place], [place] | | | | | [address] | | + + + + + Care Team Providers + +------+ + | Care Probation And Parole Officer Name | Role | Phone | + +------+ + PCP | Unavailable | + +------+ + Encounter Details +--------+ + + + + | Date | Type | Department | Care Team | Description | +--------+ + + + + | 08/07/ | Hospital | [facility] | | | | 2012 - | Encounter | [facility] | | | | | | CENTER [address] | | | | 08/13/ | | [place] | | | | 2012 | | [address] | | | | | | [phone] | | | +--------+ + + + [...] [facility] | | | | | | [place] [address] | | | | | | [phone] | | | | | | | [...] + | [facility] | [address] | [place], [place] | [phone] | | [facility] | | [address] | | | - LABORATORY | | | | + + + + + | [facility] | [address] | [place] | | | [facility] | | [address], [facility] | | | - [...] | | (formerly Mahad) Advia | | [facility] | | | | Centaur immunoassay [...] Agee | | | | | | [address] CLIA: | | | | | | [id number] | | | | + + + + + + + + | Specimen | + + | | + + + + + + + | Performing | Address | City/State/Zipcode | Phone Number | | Organization | | | | + + + + + | [facility] | [address] | [place], [place] | [phone] | | [facility] | | [address] | | | - LABORATORY | | | | + + + + + | [facility] | [address] | [place] | | | [facility] | | [id number] [place] [address] | | | - LABORATORY | | [...] + + | Performing | Address | City/State/[facility] | Phone Number | | Organization | | | | + + + + + | [facility] | [address] | [place] | [phone] | | [facility] | | [address] | | | - LABORATORY | | | | + + + + + | [facility] | [address] | [place] | | | [facility] | | [address], [facility] | | | - [...] + | [facility] | [address] | [place] | [phone] | | [facility] | | [address] | | | - LABORATORY | | | | + + + + + | [facility] | [address] | [place], [place] | | | [facility] | | [address] | | | [...] + | [facility] | [address] | [place], [place] | [phone] | | [facility] | | [address] | | | - LABORATORY | | | | + + + + + | [facility] | [address] | [place], [place] | | | [facility] | | [address] [place] [address] | | | - LABORATORY | | [...] [address] | [place] | [phone] | | [facility] | | [address] | | | - LABORATORY | | | | + + + + + | [facility] | [address] | [place] | | | [facility] | | [address], [facility] | | | - [...] + | [facility] | [address] | [place], [place] | [phone] | | [facility] | | [address] | | | - LABORATORY | | | | + + + + + | [facility] | [address] | [place], [place] | | | [facility] | | [id number] [place] [address] | | | - LABORATORY | | [...] [address] | [place] | [phone] | | [facility] | | [address] | | | - LABORATORY | | | | + + + + + | [facility] | [address] | [place] | | | [facility] | | [address] | | | [...] | >60Comment: For | >60 mL/min/A | [facility] | | | GFR | -Americans, | [...] + | [facility] | [address] | [place] | [phone] | | [facility] | | [address] | | | - LABORATORY | | | | + + + + + | [facility] | [address] | [place] | | | [facility] | | [address] | | | [...] + | [facility] | [address] | [place], [place] | [phone] | | [facility] | | [address] | | | - LABORATORY | | | | + + + + + | [facility] | [address] | [place], [place] | | | [facility] | | [address] [place] [address] | | | - LABORATORY | | [...] + | [facility] | [address] | [place], [place] | [phone] | | [facility] | | [address] | | | - LABORATORY | | | | + + + + + | [facility] | [address] | [place], [place] | | | [facility] | | [address], [facility] | | | - [...] [address] | [place] | [phone] | | [facility] | | [address] | | | - LABORATORY | | | | + + + + + | [facility] | [address] | [place] | | | [facility] | | [address] | | | [...] ST. | [address] | [place] | [phone] | | [facility] | | [address] | | | - LABORATORY | | | | + + + + + | [facility] | [address] | [place], [place] | | | [facility] | | [address] [place] [address] | | | - LABORATORY | | | | + + + + + documented in this encounter Visit Diagnoses Not on filedocumented in this encounter"
--- OUTSIDE RECORDS SUMMARY | ~2019-06-13 | XMS | Encounter Summary ---
Demographics + + + | Address | [address] | | | [place] [address] | + + + | Home Phone [...] Team Providers + +------+ + | Care Program Director Air Talent Name | Role | Phone | + +------+ + | Tomasa Wagner | PCP | | + +------+ + Encounter Details +--------+ + + + + | Date | Type | Department | Care Team | Description | +--------+ + + + + | 07/12/ | Abstract | Digestive Health | Tai Stanton, | | | 2013 | | Center at [facility] [address] | [address] | | | | | [address] [facility] | [facility] | | | | | for Health and | [place], [place] | | | | | [facility], [place] [address] | [address] | | | | | [place], [place] | [phone] | | | | | [address] | | | | | | [phone] | | | +--------+ + + + [...]
--- OUTSIDE RECORDS SUMMARY | ~2019-06-13 | XMS | Encounter Summary ---
Demographics + + + | Address | [address] | | | [place] [address] | + + + | Home Phone [...] Team Providers + +------+ + | Care Life Insurance Actuary Name | Role | Phone | + [...] | | | Reconstructive | Velma [place], | Septal Defect | | | | Services at [facility] | [place] [address] | | | | | [address] | [phone] | | | | | Mailcode: CH5E | | | | | | [facility] | | | | | | and Healing, | | | | | | [address], | | | | | | [place], [place] | | | | | | [address] | | | | | | [phone] | | | +--------+---------+ + + + [...] Neck Surgery [employer] [facility] [employer] [email or web address] documented in this encounte r Plan [...]
--- OUTSIDE RECORDS SUMMARY | ~2019-06-13 | XMS | Encounter Summary ---
Demographics + + + | Address | [address] | | | [place] [address] | + + + | Home Phone [...] Author | [facility] | | | and [place] | + + + | Organization | [facility] | | | and [place] | + + + | Address | Unknown | + + + | Phone | Unavailable | + + + Support + + + + + | Name | Relationship | Address | Phone | + + + + + | Poncho Oquendo | ECON | [address] | | | | | [place] | | | | | [address] | | + + + + + | Marta Upton | ECON | [place] | | | | | [address] | | + + + + + Care Team Providers + +------+ + | Care Director Work Name | Role | Phone | + +------+ + | aVleriy Carmona DO | PCP | | + [...] | | | [facility] [address] | [facility] | | | | | [facility] | [place] [address] | | | | | [place] [address] | [phone] | | | | | [phone] | | | +--------+ + + + [...] | | | | | | [facility] [address] | | | | | | [phone] | | | | | | | | +--------+---------+ + + + documented as of this encounter Visit Diagnoses Not on filedocumented in this encounter"
--- OUTSIDE RECORDS SUMMARY | ~2019-06-13 | XMS | Encounter Summary ---
Demographics + + + | Address | [address] | | | [place] [address] | + + + | Home Phone [...] Team Providers + +------+ + | Care Neon Molder Name | Role | Phone | + [...] Telephone | [facility] | Elva Grey, | Medical Records | | 2015 | | Clinics at | [address] | Release | | | | [facility] | [address] | | | | | for Health and | [place] [address] | | | | | Healing [address] | [phone] | | | | | [address] [place], | | | | | | [place] [address] | | | | | | [phone] | | | +--------+ + + + [...]
--- OUTSIDE RECORDS SUMMARY | ~2019-06-13 | XMS | Encounter Summary ---
Demographics + + + | Address | [address] | | | [place] [address] | + + + | Home Phone [...] | Author | [facility] | | | and [place] | + + + | Organization | [facility] | | | and [place] | + + + | Address | Unknown | + + + | Phone | Unavailable | + + + Support + + + + + | Name | Relationship | Address | Phone | + + + + + | Poncho Oquendo | ECON | [address] | | | | | [facility] [place] | | | | | [address] | | + + + + + | Marta Upton | ECON | [place] | | | | | [address] | | + + + + + Care Team Providers + +------+ + | Care K 9 Police Officer Name | Role | Phone | + +------+ + | No, Physician | PCP | Unavailable | + +------+ + Reason for Visit + + + | Reason | Comments | + + + | Missing Paperwork | notes on MyChart | + + + | Other | Return pt call | + + + Encounter Details +--------+ + + + + | Date | Type | Department | Care Team | Description | +--------+ + + + + | 02/12/ | Telephone | [facility] | Pedro Green, | Missing Paperwork | | 2019 | | UROLOGY [address] | DO [address] | (notes on MyChart); | | | | [address] | [place] [address] | Other (Return pt | | | | [place], [place] | [phone] | call ) | | | | [address] | | | | | | [phone] | | | +--------+ + + + [...] | | | | | [place] [address] | | | | | | [phone] | | | | | | | | +--------+---------+ + + + documented as of this encounter Visit Diagnoses Not on filedocumented in this encounter"
--- OUTSIDE RECORDS SUMMARY | ~2019-06-13 | XMS | Encounter Summary ---
Demographics + + + | Address | [address] | | | [place] [address] | + + + | Home Phone [...] Team Providers + +------+ + | Care Refueling Ramp Supervisor Name | Role | Phone | + +------+ + | Tomasa Wagner | PCP | | + +------+ + Encounter Details +--------+ + + + + | Date | Type | Department | Care Team | Description | +--------+ + + + + | 08/22/ | Telephone | Digestive Health | Tai Stanton, | | | 2012 | | Center at [facility] [address] | [address] | | | | | [address] [facility] | [facility] | | | | | for [facility] and | [place], [place] | | | | | [facility], [place] [address] | [address] | | | | | [place], [place] | [phone] | | | | | [address] | | | | | | [phone] | | | +--------+ + + + [...]
--- OUTSIDE RECORDS SUMMARY | ~2019-06-13 | XMS | Encounter Summary ---
Demographics + + + | Address | [address] | | | [place] [address] | + + + | Home Phone [...] Team Providers + +------+ + | Care Cattle Manager Name | Role | Phone | [...] Mailcode: | | | | | | [place], [place] | [facility] | | | | | | [address] | for Health | | | | | | Phone: | and Healing, | | | | | | [phone] | Building [address], | | | | | | Fax: | 7th Floor | | | | | | [phone] | [place], [place] | | | | | | | [address] | | | | | | | Phone: | | | | | | | [phone] | | | | | | | Fax: | | | | | | | [phone] | +--------+--------+ + + + + Encounter Details +--------+---------+ + + + | Date | Type | Department | Care Team | Description | +--------+---------+ + + + | 05/17/ | Office | Hematology/Medical | Elva Grey, | Gallbladder cancer | | 2013 | Visit | Oncology at [facility] | [address] | (HCC) (Primary Dx); | | | | [address] | [address] | Post-operative pain | | | | Mailcode: CH7 | [place] [address] | | | | | [facility] | [phone] | | | | | and Healing, | | | | | | Building 1, | | | | | | Floor [place], [place] | | | | | | [address] | | | | | | [phone] | | | +--------+---------+ + + + [...] History Narrative Pt has SO. Lives in [facility]. 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 Likes to camp, entertain. Family History: Family [...] and RT based on nomograms developed at [facility] based on SEER database. As there is no standard adjuvant regimen for this disease we have followed the regimen receloreto fitzgerald studied in the completed S0809 trial. This is Breathitt/Cap for 4 cycles, then restaging and chemoradiation with Cape as below: Capecitabine 750mg/m2 BID days 1-14 Gemcitabine 1000mg/m2 IV days 1,8 Every 21 days for 4 cycles Followed by: Capecitabine 665mg/m2 BID concurrent with RT She is currently only 3 weeks out from surgery and not yet ready for chemotherapy. She is from the [facility] and would like to get therapy closer to home. 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
--- OUTSIDE RECORDS SUMMARY | ~2019-06-13 | XMS | Encounter Summary ---
Demographics + + + | Address | [address] | | | [place] [address] | + + + | Home Phone [...] Team Providers + +------+ + | Care Repair Tech Name | Role | Phone | [...] Rd | | | | | | [place], [place] | | | | | | [address] | | | +--------+ + + + [...]
--- OUTSIDE RECORDS SUMMARY | ~2019-06-13 | XMS | Encounter Summary ---
Demographics + + + | Address | [address] | | | [place] [address] | + + + | Home Phone [...] + + | Author | [facility] | | | and [place] | + + + | Organization | [facility] | | | and [place]ardo[place] | + + + | Address | Unknown | + + + | Phone | Unavailable | + + + Support + + + + + | Name | Relationship | Address | Phone | + + + + + | Poncho Oquendo | ECON | [address] | | | | | [place] | | | | | [address] | | + + + + + | Marta Upton | ECON | [place] [place] | | | | | [address] | | + + + + + Care Team Providers + +------+ + | Care Resort Housekeeper Name | Role | Phone | [...] | | | | | | [place] [address] | | | | | | [phone] | | | +--------+ + + + [...] | | | | | [place] [address] | | | | | | [phone] | | | | | | | | +--------+---------+ + + + documented as of this encounter Visit Diagnoses Not on filedocumented in this encounter"
--- OUTSIDE RECORDS SUMMARY | ~2019-06-13 | XMS | Encounter Summary ---
Demographics + + + | Address | [address] | | | [place] [address] | + + + | Home Phone [...] | Author | [facility] | | | and [place] | + + + | Organization | [facility] | | | and [place] | + + + | Address | Unknown | + + + | Phone | Unavailable | + + + Support + + + + + | Name | Relationship | Address | Phone | + + + + + | Poncho Oquendo | ECON | [address] | | | | | [place] | | | | | [address] | | + + + + + | Marta Upton | ECON | [place] | | | | | [address] | | + + + + + Care Team Providers + +------+ + | Care Container Washer Machine Name | Role | Phone | + +------+ + | Valeriy Carmona DO | PCP | | + +------+ + Encounter Details +--------+ + + + + | Date | Type | Department | Care Team | Description | +--------+ + + + + | 05/13/ | Orders Only | [facility] | Marcelina Johnson, | | | 2017 | | MED CTR CHEMO | RN | | | | | INFUSION [address] | | | | | | [place], | | | | | | [place] [address] | | | | | | [phone] | | | +--------+ + + + [...] | | | | | [place] [address] | | | | | | [phone] | | | | | | | | +--------+---------+ + + + documented as of this encounter Visit Diagnoses Not on filedocumented in this encounter"
--- OUTSIDE RECORDS SUMMARY | ~2019-06-13 | XMS | Encounter Summary ---
Demographics + + + | Address | [address] | | | [place] [address] | + + + | Home Phone [...] Team Providers + +------+ + | Care Postdoctoral Scientist Name | Role | Phone | [...] 2012 | | HIEN Carreon | [address] | LAPAROSCOPY WITH | | | | Rd [facility] | [facility] | BIOPSY, OPEN SEGMENT | | | | Hospital Admitting | [place], [place] | 4B/5 LIVER | | | | Desk Located on the | [address] | RESECTION, PORTAL | | | | 9th floor | [phone] | LYMPHADENECTOMY | | | | [place], [place] | | Specimens x 6 (FS) | | | | [address] | | | +--------+---------+ + + + [...] acute cholecystitis. Her pathology was reviewed at [facility]. She underwent a CT scan, which showed [...] working on arranging an appointm ent with [facility] Oncology for treatment planning. FINAL PATHOLOGY: Final [...] severe diarrhea.During normal business hours please call [facility] loreto .For 'after hours' URGENT problems please call the [facility] electric accounting machine operator at and ask for the [...] None Your Follow-Up Plan Follow up with [facility] HEMATOLOGY ONCOLOGY [facility]. (Please expect a call from the Oncology clini c in the next several days to schedule an appointment with either Dr. Grey or Dr. Ledesma ) Contact information: [address] [facility] [address] Future Appointments Date & Time Provider Department Dept Phone Center 05/17/2012 11:30 AM CORNELIA KNUTSON MD [facility] [phone] [facility] Discharging Physician: MARCO ANTONIO BEATTY NP Attending Physician: MD Marco Antonio Mauricio RN, MSN, CONSULTING ENGINEER [facility] Blue Surgery Pager# [phone] 9:37 AM 05/04/2012 documented in this enc [...] 05/03/12699 - 05/04/1265805/04/12699 - 05/05/12 0659(Discharged) Shift 9556-9257 6470-6326 3791-1456 Daily Total 9723-7316 1429-3862 1643-6491 Daily Total I N T A K E P.O. 925 140 205 2705 500 500 I.V. 5 10 15 Shift Total 930 005 142 4834 500 500 O U T P U T Urine 1050 9979 487 2697 400 400 Urine 1050 7760 255 6645 400 400 Other Stool 1 1 Shift Total 1050 3043 554 9721 400 400 NET -120 -1090 205 -1005 [...] Attending Physician: Dr. Romy Beatty RN, MSN, CONSULTING ENGINEER [facility] Blue Surgery Pager# [phone] 12:54 PM 05/04/2012 Current Inpatient Medications Medication [...] Parish Arias MD - 5:51 AM PDT [facility] Department of Surgery Blue Surgery Progress Note [...] - 04/30/1259 04/30/12699 - 05/01/12 0659 Shift 4139-0370 1775-6771 7176-9044 Daily Total 7629-2939 4134-6982 5255-7610 Daily Total I N T A K E P.O. 620 619 624 8308 P.O. 620 210 865 4120 I.V. 1977.33 977.5 982.5 3937.33 0 0 [...] O U T P U T Urine 457 673 4517 2004 I/O Urinary Drain Output (Urinary Cath Placement López) 551 037 7905 2004 Shift Total 779 768 4445 2005 NET 2415.83 837.5 307.5 3560.83 0 [...] tomorrow Parish Blackburn MD Surgery, R1 Pager: [phone] ilvia Del Toro NP - 05/01/2012 2:19 PM PDTPain fairly well controlled on oral medications. No longer nauseated, tolerating 10 mg oxycodone Epidural catheter discontinued, tip intact. APS will sign off, please call us back if there are any pain related concerns for us to add ress. Silvia Del Toro NP Adult Pain Service Pager [phone] Team Pager [phone] Silvia Mckeon NP - 05/01/2012 8:56 AM [...] and summary of old medical records (source: [employer]), as summarized in the body of the note. SILVIA DEL TORO NP BILLING INFORMATION [facility] DEPARTMENT: [id number] Place of Service:- Inpatient Date of Service: 05/01/2012 CSN: [id number] Suggested Modifier: None Suggested CPT: 92598 - Daily mgmt epidural/subarachnoid drug administration Prolonged service: n/a Parish Arias MD - 05/01/2012 5:44 AM PDT [facility] Department of Surgery Blue Surgery Progress Note [...] 0659 04/30/12 07 - 05/01/12 0659 Shift 6690-5006 8709-2531 4988-1091 Daily Total 6050-5795 3014-5957 2945-1397 Daily Total I N T A K E P.[address]. [address] 815 690 9105 P.O. 620 030 951 5331 I.V. 1977.33 977.5 982.5 3937.33 0 0 [...] O U T P U T Urine 864 969 2628 2004 I/O Urinary Drain Output (Urinary Cath Placement López) 195 519 2512 2004 Shift Total 110 690 5026 2005 NET 2415.83 837.5 307.5 3560.83 0 [...] course Parish Blackburn MD Surgery, R1 Pager: [phone] Parish Arias MD - 11:59 AM PDT [facility] Department of Surgery Blue Surgery Progress Note [...] Date 04/29/12699 - 04/30/1265804/30/12699 - 05/01/12658 Shift 7288-8239 3426-2437 3960-6114 Daily Total 5864-7531 1423-6105 0003-9751 Daily Total I N T A K E [address] 103 603 4207 P.O. 620 079 841 6326 I.V. 1977.33 977.5 982.5 3937.33 0 0 [...] O U T P U T Urine 008 991 3119 2004 I/O Urinary Drain Output (Urinary Cath Placement López) 673 600 2209 2004 Shift Total 202 675 4562 2004 NET 2415.83 837.5 307.5 3560.83 0 [...] course Parish Blackburn MD Surgery, R1 Pager: [phone] Sasha Antony MD - 04/30/2012 7:03 AM [...] primary service. JOSE MALAGON MD BILLING INFORMATION [facility] DEPARTMENT: [id number] Place of Service:- Inpatient Date of Service: 04/30/2012 CSN: [id number] Suggested Modifier: GC - Resident Involved Suggested CPT: 46316 - Daily mgmt epidural/subarachnoid drug administration Prolonged [...] the floor later today. SASHA DALY MD [address] [facility], 4th Floor Mail Code: CH4P [place], [place] [address] RosiojMatilde melvin ma - 04/29/2012 1:03 PM PDT [facility] INPATIENT PROGRESS NOTE Hospital Day: 1 Author; [...] if not working though, possible transition to [facility] [employer] Hypotension Fluid bolus as needed to [...] no need for intervention Dispo TRANSFER TO [facility] ONLY Sasha Antony MD - [...] making: N/a JOSE MALAGON MD BILLING INFORMATION [facility] DEPARTMENT: [id number] Place of Service:[address]- Inpatient Date of Service: 04/29/2012 CSN: [id number] Suggested Modifier: GC - Resident Involved Suggested CPT: 24503 - Daily mgmt epidural/subarachnoid drug administration Prolonged [...] MD Department of Obstetrics & Gynecology, PGY1 [facility] Pager [phone] documented in thi s encounter Plan of [...] [facility] | [address] | [place] [address] | | | SERVICES, CORE | PARK [...] | + + + + + | [facility] | [address] | [place] [address] | | | SERVICES, CORE | PARK [...] | + + + + + | [facility] | [address] | [place] [address] | | | SERVICES, CORE | NEAL [...] | + + + + + | [facility] | [address] | [place] [address] | | | SERVICES, CORE | PARK [...] | + + + + + | [facility] | [address] | [place] [address] | | | SERVICES, CORE | [address] | | | + + + + + MAGNESIUM, PLASMA (05/03/2012 6:00 AM PDT) + +-------+ + + + | Component | Value | Ref Range | Performed | Pathologist | | | | | At | Signature | + +-------+ + + + | MAGNESIUM,P | 1.8 | 1.8 - 2.5 mg/dL | [facility] | | | TALIBMA | | | [...] | + + + + + | [facility] | [address] | [place] [address] | | | SERVICES, CORE | NEAL [...] | + + + + + | [facility] | [address] | [place] [address] | | | SERVICES, CORE | NEAL [...] [facility] | [address] | [place] [address] | | | SERVICES, CORE | PARK [...] | + + + + + | [facility] | [address] | [place] [address] | | | SERVICES, CORE | NEAL [...] (H) | 60 - 99 mg/dL | [facility] - | | | GLUCOSE, | | [...] BRUNNER | [address] | [place], [place] | | | JOHN CONTE OF [facility]JUN | [address] | [address] | | | TESTS | | | [...] | + + + + + | [facility] | [address] | [place] [address] | | | SERVICES, CORE | PARK [...] [facility] | [address] | [place], [place] | | | JOHN CONTE OF CARE | [address] | [address] | | | TESTS | | | [...] | + + + + + | [facility] | [address] | [place] [address] | | | GAVIN, CORE | PARK [...] | + + + + + | [facility] | [address] | [place] [address] | | | SERVICES, CORE | NEAL [...] | + + + + + | [facility] | [address] | [place] [address] | | | SERVICES, CORE | NEAL [...] (H) | 60 - 99 mg/dL | [facility] - | | | GLUCOSE, | | [...] BRUNNER | [address] | [place], [place] | | | [facility] | [facility] | [address] | | | TESTS | | | [...] KANNAN | [address] | [place], [place] | | | JOHN CONTE OF [place]UN | [address] | [address] | | | TESTS | | | [...] | + + + + + | [facility] | [address] | [place] [address] | | | SERVICES, CORE | NEAL [...] | + + + + + | [facility] | [address] | [place] [address] | | | GAVIN, CORE | [address] | | | + + + + + MAGNESIUM, PLASMA (04/30/2012 6:42 AM PDT) + +-------+ + + + | Component | Value | Ref Range | Performed | Pathologist | | | | | At | Signature | + +-------+ + + + | MAGNESIUM,P | 1.8 | 1.8 - 2.5 mg/dL | [facility] | | | TALIBMA | | | [...] | + + + + + | [facility] | [address] | [place] [address] | | | SERVICES, CORE | NEAL [...] + + | [facility] | [address] | [place] [address] | | | SERVICES, [facility] | [facility] | | | + + + + + OPERATION RECORD (04/29/2012 5:13 PM PDT) + + | Transcriptions | + + | Ruba Muhammad MD - 04/28/2012 10:30 PM PDT Date: | | 04/28/2012ttending Surgeon: Cornelia Knutson M.D.Cco(s): | | VENKATA Mcclainreoperative Diagnosis(es):Gallbladder | | [...] with an incidental finding of | | P0lsjoabwctqo adenocarcinoma at her recent laparoscopic cholecystectomy foracute | | cholecystitis. Her pathology was reviewed at [facility]. She underwent aCT scan, which | | [...] for RSI | | was completed.Cornelia Knutson M.D.[facility] [employer] ([facility])Professor | | and Vice-Tile Machine Operator of SurgeryThe Shahriar Nava Chair for Pancreatic Disease | | ResearchPancreatic/ HepatoBiliary and Foregut Working GroupsMail Code [id number] [facility] | | [place], [place]. [address]Fgqhu Fax [phone] | | [phone]: [email or web address] Knutson M.D.Professor and Vice-Tile Machine Operator of | | SurgeryThe Shahriar Nava Chair for Pancreatic Disease ResearchMaury Regional Medical Center, [place] | | Cook ([facility])Division of Gastrointestinal and General Surgery / [id number] / | | [id number] / [id number] / T: 04/28/2012 | |with electrocautery. Biopsy [...] | | |Cornelia Knutson M.D. | |[facility] ([facility]) | |Professor and Vice-Tile Machine Operator of Surgery | |The Shahriar Nava Chair for Pancreatic Disease Research | |Pancreatic/ HepatoBiliary and Foregut Working Groups | |Mail Code [id number] | |[address] [facility] | |[place], [place]. [address] | | | | | |email: [email or web address] | | | | | |Cornelia Knutson M.D. | |Professor and Vice-Tile Machine Operator of Surgery | |The Shahriar Nava Chair for Pancreatic Disease Research | |[facility] ([facility]) | |Division of Gastrointestinal and General Surgery | | | |JS / HS | |[id number] / [id number] / [id number] / | | | | | + + CBC (04/29/2012 1:43 AM PDT) + + + + + + | Component | Value | Ref Range | Performed | Pathologist | | | | | At | Signature | + + + + + + | WBC COUNT | 10.5 | 4.4 - 11.0 K/cu | [facility] | | | | | mm | [...] [facility] | [address] | [place] [address] | | | SERVICES, CORE | PARK [...] | + + + + + | [facility] | [address] | [place] [address] | | | SERVICES, CORE | [address] | | | + + + + + MAGNESIUM, PLASMA (04/29/2012 1:43 AM PDT) + +-------+ + + + | Component | Value | Ref Range | Performed | Pathologist | | | | | At | Signature | + +-------+ + + + | MAGNESIUM,P | 2.5 | 1.8 - 2.5 mg/dL | [facility] | | | LASMA | | | [...] | + + + + + | [facility] | [address] | [place] [address] | | | SERVICES, CORE | PARK [...] | + + + + + | [facility] | [address] | [place] [address] | | | SERVICES, CORE | PARK [...] in | | | | | | [facility]. No | | | | [...] [facility] | [address] | [place] [address] | | | SERVICES, CORE | PARK [...] | + + + + + | [facility] | [address] | [place] [address] | | | SERVICES, CORE | PARK [...] | + + + + + | [employer] | [address] | [place] [address] | | | SERVICES, CORE | NEAL [...] [facility] | [address] | [place] [address] | | | SERVICES, CORE | PARK [...] | + + + + + | [facility] | [address] | [place] [address] | | | SAM ALONSO | NEAL [...] | 1.0 | 0.5 - 1.6 | [facility] - | | | | | mmol/L [...] [facility] | [address] | [place], [place] | | | JOHN CONTE OF ARJUN | [facility] | [address] | | | TESTS | | | [...] BRUNNER | [address] | [place], [place] | | | DG POINT OF CARE | [address] | [address] | | | TESTS | | | [...] [facility]QU[facility] | [address] | [place], [place] | | | DG POINT OF CARE | [address] | [address] | | | TESTS | | | [...] - [facility] | [address] | [place], [place] | | | JOHN CONTE OF CARE | [address] | [address] | | | TESTS | | | [...] + + + | [facility] | [address] | [place], [place] | | | DG POINT OF CARE | [address] | [address] | | | TESTS | | | [...] MARQUAM | [address] | [place], [place] | | | DG POINT OF CARE | [address] | [address] | | | TESTS | | | [...] - [facility] | [address] | [place], [place] | | | JOHN CONTE OF CARE | [address] | [address] | | | TESTS | | | [...] | + + + + + | [facility] | [address] | [place], [place] | | | DG POINT OF CARE | [address] | [address] | | | TESTS | | | [...] bed. | | | | | | Flask Pusher | | | | | | sections [...] vein. | | | | | | Flask Pusher | | | | | | sections [...] | | | | | | [id number], insurance claims representative | | | | | [...] | + + + + + | [facility] | [address] | [place] [address] | | | PATHOLOGY | [address] [...]
--- OUTSIDE RECORDS SUMMARY | ~2019-06-13 | XMS | Encounter Summary ---
Demographics + + + | Address | [address] | | | [place] [address] | + + + | Home Phone [...] Team Providers + +------+ + | Care Market Research Worker Name | Role | Phone | [...] Visit | Medicine Clinic at | A, SERVICING MANAGER [address] | (Primary Dx) | | | | [facility] 4th Floor [address] | | | | | [address] | [place], [place] | | | | | Mailcode: CH4S | [address] | | | | | [facility] | | | | | | and Healing, | | | | | | Building 1,4th Floor | | | | | | [place], [place] | | | | | | [address] | | | | | | [phone] | | | +--------+---------+ + + + [...] + + + documented in this encounter Salima Rosales - 07/03/2008 4:57 PM PDTSee Scanned H&P. documented in this e ncounter Plan of Treatment Not on filedocumented as of this encounter Visit Diagnoses + + | Diagnosis | + + | Preop examination - Primary Preoperative examination, unspecified | + + documented in this encounter
--- OUTSIDE RECORDS SUMMARY | ~2019-06-13 | XMS | Encounter Summary ---
Demographics + + + | Address | [address] | | | [place] [address] | + + + | Home Phone [...] Team Providers + +------+ + | Care Compress Machine Operator Name | Role | Phone | + +------+ + | Tomasa Wagner | PCP | | + +------+ + Encounter Details +--------+ + + + + | Date | Type | Department | Care Team | Description | +--------+ + + + + | 06/12/ | MyChart | [facility] | Miguel Seymour, | RE: Test Results | | 2014 | Encounter | [facility] | [address] | | | | | [address] | [address] | | | | | [address] | [place], [place] | | | | | Alexis, [facility] floor | [address] | | | | | [place], [place] | [phone] | | | | | [address] | | | | | | [phone] | | | +--------+ + + + [...]
--- OUTSIDE RECORDS SUMMARY | ~2019-06-13 | XMS | Encounter Summary ---
Demographics + + + | Address | [address] | | | [place] [address] | + + + | Home Phone [...] Providers + +------+ + | Care Technical Assistant Name | Role | Phone | [...] | | | | | [place] | | | | | | [place] [address] | | | +--------+--------+ + + + [...]
--- OUTSIDE RECORDS SUMMARY | ~2019-06-13 | XMS | Encounter Summary ---
Demographics + + + | Address | [address] | | | [place] [address] | + + + | Home Phone [...] Team Providers + +------+ + | Care Abalone Processor Name | Role | Phone | + +------+ + | Tomasa Wagenr | PCP | | + +------+ + Reason for Visit + + + | Reason | Comments | + + + | Refill Request | | + + + Encounter Details +--------+--------+ + + + | Date | Type | Department | Care Team | Description | +--------+--------+ + + + | 06/28/ | Refill | [facility] | Zully Soto RN | Refill Request | | 2014 | | [facility] | [place], [place] | | | | | [address] | [address] | | | | | [address] | | | | | | [place], 7th floor | | | | | | [place], [place] | | | | | | [address] | | | | | | [phone] | | | +--------+--------+ + + + [...]
--- OUTSIDE RECORDS SUMMARY | ~2019-06-13 | XMS | Encounter Summary ---
Demographics + + + | Address | [address] | | | [place] [address] | + + + | Home Phone [...] Team Providers + +------+ + | Care Savings Counselor Name | Role | Phone | [...] & | Diagnoses | [facility] | [facility] [employer] [facility] Poultry Technician Onc | | | | Gynecology | Complex | Epic Dept | [address] | | | | | Cystic Mass, | | [address] | | | | | elevated | | [place] | | | | | [address] per | | Pavilion, 7th | | | | | appt notes | | floor | | | | | | | [place], [place] | | | | | | | [address] | | | | | | | Phone: | | | | | | | [phone] | | | | | | | Fax: | | | | | | | [phone] | +--------+--------+ + + + + Encounter Details +--------+---------+ + + + | Date | Type | Department | Care Team | Description | +--------+---------+ + + + | 05/21/ | Office | [facility] | Miguel Seymour, | 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 Patient seen and discussed with Dr. Kandis [...] | + + + + + | [facility] | [address] | [place] [address] | | | [place] | | | | + + + [...] # | | | | | | [id number]. Received 2 | | | | | [...] | + + + + + | [facility] | [address] | [place] [address] | | | PATHOLOGY | [address] [...]
--- OUTSIDE RECORDS SUMMARY | ~2019-06-13 | XMS | Encounter Summary ---
Demographics + + + | Address | [address] | | | [place] [address] | + + + | Home Phone [...] Team Providers + +------+ + | Care Men'S Leather Dress Belt Maker Name | Role | Phone | [...] MD | | | | | Nahid [facility] Shay | Genevieve Acosta, | | | | | Hospital Admitting | | | | | | Desk Located on the | | | | | | 9th floor | | | | | | [place], [place] | | | | | | [address] | | | +--------+ + + + [...]
--- OUTSIDE RECORDS SUMMARY | ~2019-06-13 | XMS | Encounter Summary ---
Demographics + + + | Address | [address] | | | [place] [address] | + + + | Home Phone | | + + + | Preferred Language | Unknown | + + + | Marital Status | | + + + | Synagogue Affiliation | Unknown | + + + | Race | Unknown | + + + | Ethnic Group | Unknown | + + + Author + + + | Author | [facility] | | | and Eduardoana | + + + | Organization | [facility] | | | and Eduardoana | + + + | Address | Unknown | + + + | Phone | Unavailable | + + + Support + + + + + | Name | Relationship | Address | Phone | + + + + + | Poncho Oquendo | ECON | [address] | | | | | [place] | | | | | [address] | | + + + + + | Marta Upton | ECON | [place] | | | | | [address] | | + + + + + Care Team Providers + +------+ + | Care Fuse Cup Expander Name | Role | Phone | + +------+ + | Valeriy Carmona DO | PCP | | + +------+ + Encounter Details +--------+ + + + + | Date | Type | Department | Care Team | Description | +--------+ + + + + | 08/27/ | Hospital | [facility] | Valeriy Carmona, | Breast nodule | | 2016 | Encounter | [facility] | DO [address] | | | | | [address] | [place] [address] | | | | | [place], [place] | [phone] | | | | | [address] | | | | | | [phone] | [place] [address] [place] | | +--------+ [...] [facility] [place] [address] | | | | | | [phone] | | | | | | | [...]
--- OUTSIDE RECORDS SUMMARY | ~2019-06-13 | XMS | Encounter Summary ---
Demographics + + + | Address | [address] | | | [place] [address] | + + + | Home Phone [...] Team Providers + +------+ + | Care Injection Mold Technician Name | Role | Phone | [...] & | Diagnoses | [facility] | [facility] | | | | Gynecology | Complex | Epic Dept | [address] | | | | | Cystic Mass, | | [address] | | | | | elevated | | [place] | | | | | [address] per | | Pavilion, 7th | | | | | appt notes | | floor | | | | | | | [place], [place] | | | | | | | [address] | | | | | | | Phone: | | | | | | | [phone] | | | | | | | Fax: | | | | | | | [phone] | +--------+--------+ + + + + Encounter Details +--------+---------+ + + + | Date | Type | Department | Care Team | Description | +--------+---------+ + + + | 05/21/ | Office | [facility] | Miguel Seymour, | 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 Patient seen and discussed with Dr. Kandis [...] + | [facility] - [facility] - | [address] | [place] [address] | | | [place] | | | | + + + [...] # | | | | | | [id number]. Received 2 | | | | | [...] | + + + + + | [facility] | [address] | [place] [address] | | | PATHOLOGY | [address] [...]
--- OUTSIDE RECORDS SUMMARY | ~2019-06-13 | XMS | Encounter Summary ---
Demographics + + + | Address | [address] | | | [place] [address] | + + + | Home Phone | | + + + | Preferred Language | Unknown | + + + | Marital Status | | + + + | Shinto Affiliation | Unknown | + + + | Race | Unknown | + + + | Ethnic Group | Unknown | + + + Author + + + | Author | [facility] | | | and Eduardoana | + + + | Organization | [facility] | | | and Eduardoana | + + + | Address | Unknown | + + + | Phone | Unavailable | + + + Support + + + + + | Name | Relationship | Address | Phone | + + + + + | Poncho Oquendo | ECON | [address] | | | | | [place] | | | | | [address] | | + + + + + | Marta Upton | ECON | [place] | | | | | [address] | | + + + + + Care Team Providers + +------+ + | Care Design Manager Name | Role | Phone | [...] | | | ONCOLOGY CLINIC [address] | [facility] | | | | | [address] [facility] | [place] [address] | | | | | [place] [address] | [phone] | | | | | [phone] | | | +--------+ + + + [...] [address] | | | | | | [facility] [address] | | | | | | [phone] | | | | | | | | +--------+---------+ + + + documented as of this encounter Visit Diagnoses Not on filedocumented in this encounter"
--- OUTSIDE RECORDS SUMMARY | ~2019-06-13 | XMS | Encounter Summary ---
Demographics + + + | Address | [address] | | | [place] [address] | + + + | Home Phone [...] Team Providers + +------+ + | Care Department Store Manager Name | Role | Phone | + +------+ + | Tomasa Wagner | PCP | | + +------+ + Reason for Visit + + + | Reason | Comments | + + + | Medical Records | [facility] OUTS[facility]: Progress Notes 09/25/2013 (f/u [...] 2013 | | Center at [facility] [address] | [address] | Review ([facility] - | | | | [address] [facility] | [facility] | OUTSIDE REOCRDS: | | | | for Health and | [place], [place] | Progress Notes | | | | Healing, Building [address] | [address] | 09/25/2013 (f/u | | | | [facility] [place] | [phone] | chemo/radiation | | | | [address] | | therapy for | | | | [phone] | | cholangiocarcinoma) | | | | [...]
--- OUTSIDE RECORDS SUMMARY | ~2019-06-13 | XMS | Encounter Summary ---
Demographics + + + | Address | [address] | | | [place] [address] | + + + | Home Phone [...] | Author | [facility] | | | and Eduardoana | + + + | Organization | [facility] | | | and Eduardoana | + + + | Address | Unknown | + + + | Phone | Unavailable | + + + Support + + + + + | Name | Relationship | Address | Phone | + + + + + | Poncho Oquendo | ECON | [address] | | | | | [place] | | | | | [address] | | + + + + + | Marta Upton | ECON | [place] | | | | | [address] | | + + + + + Care Team Providers + +------+ + | Care Ball Fringe Machine Operator Name | Role | Phone [...] | | Carcinoma | Reinaldo, | [address] | | | | | of gall | Epifanio C, | [place], | | | | | bladder | MD [address] | [place] [address] | | | | | (HCC) | [address] | Phone: | | | | | Procedures | [place], | [phone] | | | | | CT Chest | [place] [address] | Fax: | | | | | Abdomen | Phone: | [phone] | | | | | Pelvis w | [phone] | | | | | | Contrast | Fax: | | | | | | | [phone] | | +--------+--------+ + + + + [...] (Primary Dx) | | | | [address] | [place] [address] | | | | | [place] [address] | [phone] | | | | | [phone] | | | +--------+ + + + [...] [address] | | | | | | [place] [address] | | | | | | [phone] | | | | | | | [...] intravenous administration of 100 mL | | [id number] contrast. Oral contrast was administered. Multiplanar reformatted [...]
--- OUTSIDE RECORDS SUMMARY | ~2019-06-13 | XMS | Encounter Summary ---
Demographics + + + | Address | [address] | | | [place] [address] | + + + | Home Phone [...] Team Providers + +------+ + | Care Brass Cleaner Name | Role | Phone | [...] | | 2015 | | [facility] | [address] | (Miguel Seymour) | | | | Pav[address] | [facility] | | | | | [address] | [place], [place] | | | | | Pavilion, [facility] | [address] | | | | | [place], [place] | [phone] | | | | | [address] | | | | | | [phone] | | | +--------+ + + + [...]
--- OUTSIDE RECORDS SUMMARY | ~2019-06-13 | XMS | Encounter Summary ---
Demographics + + + | Address | [address] | | | [place] [address] | + + + | Home Phone [...] Team Providers + +------+ + | Care Wool And Pelt Grader Name | Role | Phone | + [...] 2014 | | [address] | [address] [facility] [address] | LAPAROTOMY; TOTAL | | | | Rd [facility] | [address] | ABDOMINAL | | | | Hospital Admitting | [place], [place] | HYSTERECTOMY; | | | | Desk Located on the | [address] | BILATERAL | | | | 9th floor | [phone] | SALPINGO-OOPHORECTOM | | | | [place], [place] | | Y; OMENTECTOMY; LEFT | | | | [address] | | PELVIC AND | | | [...] DISCHARGE SUMMARY Author: Roger Guadalupe MD PGY1 ELECTRICAL POWER ENGINEER Attending Physician: Dr. Henderson Admission Date: 06/06/2014 [...] to Get Your Medications You need to mushroom picker these prescriptions. We sent some of them to a specific pharmacy. Go t o these places to get your medications. [facility] - enoxaparin 40 mg/0.4 mL Syrg [address] [facility] [address] [facility] [address] Hours: 8AM-9PM Mon-Fri; 9-5:30PM Sat-Sun You may [...] contact your provider, please call the [facility] clinic at [phone] during daytime hours. During evening or weekend hours, please call the [facility] paging mingler operator at [phone] and ask for the [facility] staff on-call. Reasons to call the [...] stable Discharging Physician: Roger Guadalupe MD PGY1 ELECTRICAL POWER ENGINEER Service Pager: [phone] Attending Physician: Dr. Henderson I saw and [...] assessment and plan. Roger Guadalupe MD PGY1 ELECTRICAL POWER ENGINEER Service Pager: [phone] I saw and evaluated the patient. I [...] assistance. Primary service notified. RAGHU DALY MD [facility] [address] [facility], 4th Floor Mail Code: CH4P [place], [place] [address] Raghu Antony MD - 06/08/2014 [...] and recommendations with primary care team provider dental laboratory assistant/oncology. RAGHU DALY MD BILLING INFORMATION [facility] DEPARTMENT: [id number] Place of Service:- Inpatient Date of Service: 06/08/2014 CSN: [id number] Suggested Modifier: None Suggested CPT: 37178 - Daily mgmt epidural/subarachnoid drug administration Prolonged service: n/a Counseling and Coordination: n/a egeest, MD Miguel - 06/08/2014 8:00 AM PDT GYNECOLOGY ONCOLOGY INPATIENT PROGRESS NOTE Hospital Day: 1 Author: PONCHO ARRILOA MD Attending Physician: Miguel Seymour MD ID: [...] assessment and plan. Roger Guadalupe MD PGY1 ELECTRICAL POWER ENGINEER Service Pager: [phone] I saw and evaluated the patient. I [...] separate note in EPIC). RAGHU DALY MD [facility] [address] [facility], 4th Floor Mail Code: CH4P [place], [place] [address] Raghu Antony MD - 06/07/2014 7:39 AM [...] 125 mL/hr intravenous CONTINUOUS 125 mL/hr (06/07/14 6926) Type: Epidural Rate: 4 mL/hour Anticoagulants: enoxaparin [...] care team provider . RAGHU DALY MD [facility] [address] [facility], 4th Floor Mail Code: CH4P [place], [place] [address] BILLING INFORMATION [facility] DEPARTMENT: [id number] Place of Service:- Inpatient Date of Service: 06/07/2014 CSN: [id number] Suggested Modifier: GC - Resident Involved Suggested CPT: 55563 - Daily mgmt epidural/subarachnoid drug administration Prolonged [...] Replete lytes PRN Renal/: good urine output. -agrth discontinue chery later today -continue to monitor [...] examine patient. Pt is POD#0 s/o ex-lap, JKAE, B SO, omentectomy, left para-aortic lymph node [...] | Abdominal or | | | LAPAROSCOPY (POST OFFICE MARKUP CLERK | ve | 7:27 AM | pelvic [...] + +--------+ + + + | NON POST OFFICE MARKUP CLERK CYTOLOGY | Routin | 06/06/2014 | | [...] + + + + + | [facility] | [address] [facility] | [place] [address] | | | SERVICES, CORE | PARK [...] | + + + + + | [facility] | [address] | [place] [address] | | | SERVICES, SAM | PARK [...] | | | LABORATORY | | | [place] CITIZ[place] | | | SERVICES, | | | [...] the MDRD equation recommended by the | [facility] | | National Kidney Disease Education Program. [...] [facility] | [address] | [place] [address] | | | SERVICES, CORE | PARK [...] [facility] | [address] | [place] [address] | | | SERVICES, CORE | PARK [...] [facility] | [address] | [place] [address] | | | SERVICES, CORE | PARK [...] | | | LABORATORY | | | [place] CITIZEN | | | SERVICES, | | | [...] + + + + + | [facility] | [address] | [place] [address] | | | SERVICES, CORE | [address] | | | + + + + + OPERATION RECORD (06/07/2014 8:30 AM PDT) + + | Transcriptions | + + | Miguel Seymour MD - 06/06/2014 12:48 PM PDT Date of Service: 06/06/2014 | | Attending Surgeon: Miguel Seymour MD Email Marketing Executive(s): | | Poncho Arriola MD. Anesthesia: General [...] 06/06/2014 11:52:24DT: 06/06/2014 12:48:01Job #: | | [id number] DEPARTMENT: [id number] POST OFFICE MARKUP CLERK [facility]: - | | IPDate of Service: 06/07/2014 : [id number] | | Modifier: NoneSuggested CPT: NoneSuggested Procedure [...] | + + + + + | [facility] | [address] | [place] [address] | | | SERVICES, SAM | NEAL [...] [facility] | [address] | [place] [address] | | | SERVICES, CORE | PARK [...] [facility] | [address] | [place] [address] | | | SERVICES, CORE | NEAL [...] [facility] | [address] | [place] [address] | | | SERVICES, CORE | PARK [...] | | | LABORATORY | | | [place] CITIZEN | | | SERVICES, | | | [...] + + + + + | [facility] | [address] | [place] [address] | | | SERVICES, CORE | [address] | | | + + + + + NON POST OFFICE MARKUP CLERK CYTOLOGY (06/06/2014) + + + + + + | Component | Value | Ref Range | Performed | Pathologist | | | | | At | Signature | + + + + + + | NON-POST OFFICE MARKUP CLERK | SOURCE OF SPECIMEN:A | | [facility] [...] San | | | | | | CT(ASCP)Glass Finisher | | | | | | Electronically [...] | + + + + + | [facility] | [address] | [place] [address] | | | PATHOLOGY | [address] [...] | | | | | | corresponding [id number] | | | | | | B: [...] bed | | | | | | ([id number], slides E3-4). | | | | | [...] | | | cs determined by [facility] | | | | | [...] | | | | | | s/pchemoXRT ([id number], | | | | | | [id number]); now with | | | | | [...] | | | | | | | Millinery Designer | | | | | | sections [...] identified. | | | | | | Millinery Designer | | | | | | sections [...] residueB3-6, | | | | | | inventory representative sections | | | | | | of #1 external | | | | | | excrescenceB7-8, #2 | | | | | | external | | | | | | excrescenceB9-10, entire | | | | | | #3 external | | | | | | swienlkbsyoB29, | | | | | | inventory representative sections | | | | | | of del rio-brown | | | | | | excrescences from inner | | | | | | cyst jomvfieydoM97-25, | | | | | | additional sections of | | | | | | tzegkV17, inventory representative | | | | | | [...] endomyometriumD5, | | | | | | inventory representative sections | | | | | | of right ovaryD6-9, | | | | | | inventory representative sections | | | | | | of external ovarian | | | | | | jipfryZ70-49, | | | | | | inventory representative sections | | | | | [...] + + | Performing | Address | City[facility]State[facility] | Phone Number | | Organization | | | | + + + + + | [facility] | [address] | [place] [address] | | | PATHOLOGY | [address] [...]
--- OUTSIDE RECORDS SUMMARY | ~2019-06-13 | XMS | Encounter Summary ---
Demographics + + + | Address | [address] | | | [place] [address] | + + + | Home Phone | | + + + | Preferred Language | Unknown | + + + | Marital Status | | + + + | Protestant Affiliation | Unknown | + + + | Race | Unknown | + + + | Ethnic Group | Unknown | + + + Author + + + | Author | [facility] | | | and Eduardoana | + + + | Organization | [facility] | | | and Eduardoana | + + + | Address | Unknown | + + + | Phone | Unavailable | + + + Support + + + + + | Name | Relationship | Address | Phone | + + + + + | Poncho Oquendo | ECON | [address] | | | | | [place] | | | | | [address] | | + + + + + | Marta Upton | ECON | [place] | | | | | [address] | | + + + + + Care Team Providers + +------+ + | Care Remote Broadcast Technician Name | Role | Phone | [...] WALL | | | | | [address] | [place] [address] | | | | | [place] [address] | [phone] | | | | | [phone] | | | +--------+ + + + [...] [address] | | | | | | [place] [address] | | | | | | [phone] | | | | | | | | +--------+---------+ + + + documented as of this encounter Visit Diagnoses + + | Diagnosis | + + | Gallbladder cancer, 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
--- OUTSIDE RECORDS SUMMARY | ~2019-06-13 | XMS | Encounter Summary ---
Demographics + + + | Address | [address] | | | [place] [address] | + + + | Home Phone [...] Author | [facility] | | | and Eduardoana | + + + | Organization | [facility] | | | and Eduardoana | + + + | Address | Unknown | + + + | Phone | Unavailable | + + + Support + + + + + | Name | Relationship | Address | Phone | + + + + + | Poncho Oquendo | ECON | [address] | | | | | [place], [place] | | | | | [address] | | + + + + + | Marta Upton | ECON | [place], [place] | | | | | [address] | | + + + + + Care Team Providers + +------+ + | Care Garbage Person Name | Role | Phone | + +------+ + | No, Physician | PCP | Unavailable | + +------+ + Encounter Details +--------+ + + + + | Date | Type | Department | Care Team | Description | +--------+ + + + + | 04/26/ | Hospital | [facility] | Pedro Green, | | | 2019 | Encounter | REGIONAL SURGERY | DO [address] | | | | | CENTER INTRA OP | [place] [address] | | | | | [address] | [phone] | | | | | [place], [place] | | | | | | [address] | | | | | | [phone] | | | +--------+ + + + [...] [address] | | | | | | [place] [address] | | | | | | [phone] | | | | | | | [...]
--- OUTSIDE RECORDS SUMMARY | ~2019-06-13 | XMS | Encounter Summary ---
Demographics + + + | Address | [address] | | | [place] [address] | + + + | Home Phone [...] Author | [facility] | | | and Eduardoana | + + + | Organization | [facility] | | | and Eduardoana | + + + | Address | Unknown | + + + | Phone | Unavailable | + + + Support + + + + + | Name | Relationship | Address | Phone | + + + + + | Poncho Oquendo | ECON | [address] | | | | | [facility] [place] | | | | | [address] | | + + + + + | Marta Upton | ECON | [place], [place] | | | | | [address] | | + + + + + Care Team Providers + +------+ + | Care Systems Project Manager Name | Role | Phone [...] | | Procedures | [address] | [place] | | | | | PET CT Skull | [place], | [address] | | | | | Base To Mid | [place] [address] | Phone: | | | | | Thigh | | [phone] | | | | | | | Fax: | | | | | | | [phone] | +--------+--------+ + + + + Reason [...] | | ashvin | [address] | [address] | | | | | (HCC) | [place], | [address] | | | | | Procedures | [address] | [place], [place] | | | | | PET CT Skull | [place], | [address] | | | | | Base To Mid | [place] [address] | Phone: | | | | | Thigh | | [phone] | | | | | | | Fax: | | | | | | | [phone] | +--------+--------+ + + + + Encounter Details +--------+ + + + + | Date | Type | Department | Care Team | Description | +--------+ + + + + | 02/15/ | Hospital | [facility] | Reinaldo, | 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 | Epifanio Soler MD [address] | passages ([facility]) | | | | MEDICINE [address] | [address] | | | | | [address] | [place] [address] | | | | | [place], [place] | [phone] | | | | | [address] | | | | | | [phone] | | | +--------+ + + + [...] [address] | | | | | | [place] [address] | | | | | | [phone] | | | | | | | [...] | | | Signed by: Maycol Urias, Five-Thirtypender Sign Date/Time: 02/15/2019 | | | 1:37 [...] | Procedure Note | + + | [place], Rad Results In - 02/15/2019 1:41 PM [...] Testing | 65 - 99 mg/dL | [facility] | | | POC | performed at [facility] | | LABORATORY | | | | [facility];[place], [place] | | | | | | [address] | | | | + + + + + + + + | Specimen | + + | | + + + + + + + | Performing | Address | City/State/Zipcode | Phone Number | | Organization | | | | + + + + + | [facility] | [address] | [place] [address] | [phone] | + + + + + documented [...] millicur | | | | Intravenous, ONCE, [facility] 02/15/19 at | | PM PST | ies | | | | 1315, For 1 dose | | | | | | + +--------+ + +------+------+ +---+---+ | | | +---+---+ documented in this encounter"
--- OUTSIDE RECORDS SUMMARY | ~2019-06-13 | XMS | Encounter Summary ---
Demographics + + + | Address | [address] | | | [place] [address] | + + + | Home Phone [...] Providers + +------+ + | Care Machine Marker Name | Role | Phone | [...] | 2015 | Encounter | [facility] | [address] | Appointment | | | | [address] | Surendra Velma | | | | | [address] | [place], [place] | | | | | Pavilion, [address] [place] [address] | [address] | | | | | [place], [place] | [phone] | | | | | [address] | | | | | | [phone] | | | +--------+ + + + [...]
--- OUTSIDE RECORDS SUMMARY | ~2019-06-13 | XMS | Encounter Summary ---
Demographics + + + | Address | [address] | | | [place] [address] | + + + | Home Phone [...] + + | Author | [facility] | | | and Eduardoana | + + + | Organization | [facility] | | | and Eduardoana | + + + | Address | Unknown | + + + | Phone | Unavailable | + + + Support + + + + + | Name | Relationship | Address | Phone | + + + + + | Poncho Oquendo | ECON | [address] | | | | | [place] | | | | | [address] | | + + + + + | Marta Upton | ECON | [place] | | | | | [address] | | + + + + + Care Team Providers + +------+ + | Care Restaurant Recruiter Name | Role | Phone | [...] 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, | [address] [place]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 | MD [address] | [place], | | | | | (HCC) | [address] | [place] [address] | | | | | Procedures | [place], | Phone: | | | | | [place] | [place] [address] | [phone] | | | | | ONDANSETRON | Phone: | Fax: | | | | | HCL | [phone] | [phone] | | | | | INJECTION, 1 | Fax: | | | | | | MG DC | [phone] | | | | | | DEXAMETHASON | | | | | | | E SODIUM | | | | | | | PHOS, 1 MG | | | | | | | DC | | | | | | | DIPHENHYDRAM | | | | | | | INE HCL | | | | | | | INJECTIO, 50 | | | | | | | MG DC | | | | | | | FOSAPREPITAN | | | | | | | T INJECTION, | | | | | | | 1 MG DC | | | | | | | EPOETIN | | | | | | | JJ, | | | | | | | NON-ESRD, | | | | | | | 1000 UNITS | | | | | | | DC CISPLATIN | | | | | | | 10 MG | | | | | | | INJECTION | | | | | | | DC | | | | | | | GEMCITABINE | | | | | | | HCL | | | | | | | INJECTION, | | | | | | | 200 MG DC | | | | | | | LORAZEPAM | | | | | | | INJECTION, 2 | | | | | | | MG DC | | | | | | | METHYLPREDNI | | | | | | | SOLONE | | | | | | | INJECTION, | | | | | | | 125 MG DC | | | | | | | NORMAL | | | | | | | SALINE | | | | | | | SOLUTION | | | | | | | INFUS, 500 | | | | | | | ML DC | | | | | | | NORMAL | | | | | | | SALINE | | | | | | | SOLUTION | | | | | | | INFUS, 250 | | | | | | | ML DC | | | | | | | STERILE | | | | | | | WATER/SALINE | | | | | | | , 10 ML DC | | | | | | | CHEMOTHER, | | | | | | | IV PUSH,EA | | | | | | | ADD DRUG DC | | | | | | | CHEMOTHER, | | | | | | | IV INFUSION, | | | | | | | 1 HR DC | | | | | | | CHEMOTHER, | | | | | | | IV INFUSION, | | | | | | | EA HR DC | | | | | | | CHEMOTHER,NO | | | | | | | N-HORMONE | | | | | | | ANTI-NEOPL, | | | | | | | SUB-Q/IM DC | | | | | | | [...] + + | 11/22/ | Hospital | [facility] | Vladimir Robles, | Gallbladder cancer, | | 2015 | Encounter | MED CTR CHEMO | MD [address] | carcinoma (HCC) | | | | INFUSION [address] [place], | (Primary Dx) | | | | [place], | [place] [address] | | | | | [place] [address] | [phone] | | | | | [phone] | | | +--------+ + + + [...] [address] | | | | | | [place] [address] | | | | | | [phone] | | | | | | | [...] | | | | | | [place] [address] | | | | + + + [...] [address] | [place] [address] | [phone] | + + + + + [place] [...] + | [address] | [address] | [place] | [phone] | | [facility] | | [address] | | | - LABORATORY | | [...] [address] | [place] | [phone] | | [facility] | | [address] | | | - LABORATORY | | [...] mL/min/1.73m2 | [facility] | | | CYMRO | RATE,ESTIMATED | | MEDICAL | | | | mL/min/1.52b5Ahih than | | CENTER - | | [...] | 8.7 | 8.3 - 10.5 | PROVIDEINE | | | | | mg/dL | [...] + | [address] | [address] | [place] | [phone] | | [facility] | | [address] | | | - LABORATORY | | [...] [address] | [place] | [phone] | | [facility] | | [address] | | | - LABORATORY | | [...]
--- OUTSIDE RECORDS SUMMARY | ~2019-06-13 | XMS | Encounter Summary ---
Demographics + + + | Address | [address] | | | [place] [address] | + + + | Home Phone [...] + | Author | [facility] | | | and Eduardoana | + + + | Organization | [facility] | | | and Eduardoana | + + + | Address | Unknown | + + + | Phone | Unavailable | + + + Support + + + + + | Name | Relationship | Address | Phone | + + + + + | Poncho Oquendo | ECON | [address] | | | | | [facility], [place] | | | | | [address] | | + + + + + | Marta Upton | ECON | [place], [place] | | | | | [address] | | + + + + + Care Team Providers + +------+ + | Care Security Developer Name | Role | Phone | + +------+ + PCP | Unavailable | + +------+ + Encounter Details +--------+ + + + + | Date | Type | Department | Care Team | Description | +--------+ + + + + | 01/15/ | Hospital | [facility] | | | | 2012 | Encounter | MED CTR XRAY [address] | | | | | | [place] | | | | | | [place] [address] | | | | | | [phone] | | | +--------+ + + + [...] [address] | | | | | | [place] [address] | | | | | | [phone] | | | | | | | [...] Performed At | + + + | [facility] Diagnostic [facility] | [place] | | Department [address] | [facility] | | [ rep ct [address]] [ rep ct [facility] | | zip] Signed | - IMAGING | | | | | Patient Name: JENELLEAURA HANSON Physician: | | | LIZBETH. : 1960 Age: 52 Sex: F Unit #: [id number] | | | Exam Date: 01/15/13 Location: [facility] | | | Report #: [id number] Page: | | | %(RAD)RES..mtdd.print.filter("pg") of %(RAD) | | | RES..mtdd.print.filter("tpg") | | | | | | Accession Number: [id number] | | | CHEST, ABDOMEN, PELVIS CT [...] Transcribed | | | Date/Time: 01/15/2013 13:23 Charger Operator: | | | <<Signature on File>> | | | Mathieu Blas | | Emir Brasher MD01/15/132 <Electronically signed by Mathieu Brasher MD> Mathieu Brasher MD 01/15/13 1140 | | | Charger Operator: HutGrip [id number]/02/13 1323 | | | Epifanio Najera MD | | + + + + + + + + | Performing | Address | City/State/Zipcode | Phone Number | | Organization | | | | + + + + + | [address] | [address] | [place] | [phone] | | [facility] | | [address] | | | - IMAGING | | | | + + + + + documented in this encounter Visit Diagnoses Not on filedocumented in this encounter
--- OUTSIDE RECORDS SUMMARY | ~2019-06-13 | XMS | Encounter Summary ---
Demographics + + + | Address | [address] | | | [place] [address] | + + + | Home Phone [...] Team Providers + +------+ + | Care Glue Mounter Operator Name | Role | Phone | [...] 2012 | | HIEN Carreon | [address] [facility] | LAPAROSCOPY WITH | | | | Rd [facility] | [facility] | BIOPSY, OPEN SEGMENT | | | | Hospital Admitting | [place], [place] | 4B/5 LIVER | | | | Desk Located on the | [address] | RESECTION, PORTAL | | | | 9th floor | [phone] | LYMPHADENECTOMY | | | | [place], [place] | | Specimens x 6 (FS) | | | | [address] | | | +--------+---------+ + + + [...] acute cholecystitis. Her pathology was reviewed at [facility]. She underwent a CT scan, which [...] working on arranging an appointm ent with [facility] Oncology for treatment planning. FINAL PATHOLOGY: [...] 'after hours' URGENT problems please call the [facility] post tronic machine operator at and ask for the [...] None Your Follow-Up Plan Follow up with [facility] HEMATOLOGY ONCOLOGY [facility]. (Please expect a call from the Oncology clini c in the next several days to schedule an appointment with either Dr. Grey or Dr. Ledesma ) Contact information: [address] [facility] [address] Future Appointments Date & Time Provider Department Dept Phone Center 05/17/2012 11:30 AM CORNELIA KNUTSON MD [facility] [phone] [facility] Discharging Physician: MARCO ANTONIO BEATTY NP Attending Physician: MD Marco Antonio Mauricio RN, MSN, SET UP MECHANIC HEADING MACHINES [facility] Blue Surgery Pager# [phone] 9:37 AM 05/04/2012 documented in this enc [...] 05/03/12699 - 05/04/1265805/04/12699 - 05/05/12 0659(Discharged) Shift 1061-8495 0656-4632 8105-4035 Daily Total 9990-5546 9830-2664 2160-3751 Daily Total I N T A K E P.O. 925 338 280 3003 500 500 I.V. 5 10 15 Shift Total 930 696 281 9818 500 500 O U T P U T Urine 1050 4788 178 3787 400 400 Urine 1050 5156 983 8395 400 400 Other Stool 1 1 Shift Total 1050 0862 486 1856 400 400 NET -120 -1090 205 -1005 [...] Attending Physician: Dr. Romy Beatty RN, MSN, SET UP MECHANIC HEADING MACHINES [facility] Blue Surgery Pager# [phone] 12:54 PM 05/04/2012 Current Inpatient Medications Medication [...] Parish Arias MD - 5:51 AM PDT [facility] Department of Surgery Blue Surgery Progress [...] - 04/30/1259 04/30/12699 - 05/01/12 0659 Shift 6356-6259 2815-7462 2823-6216 Daily Total 3734-8485 7703-2798 0007-8113 Daily Total I N T A K E P.O. 620 688 427 7110 P.O. 620 715 783 9123 I.V. 1977.33 977.5 982.5 3937.33 0 0 [...] O U T P U T Urine 788 661 9872 2004 I/O Urinary Drain Output (Urinary Cath Placement López) 031 073 4013 2004 Shift Total 903 124 1180 2005 NET 2415.83 837.5 307.5 3560.83 0 [...] tomorrow Parish Blackburn MD Surgery, R1 Pager: [phone] ilvia Del Toro NP - 05/01/2012 2:19 PM PDTPain fairly well controlled on oral medications. No longer nauseated, tolerating 10 mg oxycodone Epidural catheter discontinued, tip intact. APS will sign off, please call us back if there are any pain related concerns for us to add ress. Silvia Del Toro NP Adult Pain Service Pager [phone] Team Pager [phone] Silvia Mckeon NP - 05/01/2012 8:56 AM [...] and summary of old medical records (source: [employer]), as summarized in the body of the note. SILVIA DEL TORO NP BILLING INFORMATION [facility] DEPARTMENT: [id number] Place of Service:- Inpatient Date of Service: 05/01/2012 CSN: [id number] Suggested Modifier: None Suggested CPT: 06094 - Daily mgmt epidural/subarachnoid drug administration Prolonged service: n/a Praish Arias MD - 05/01/2012 5:44 AM PDT [facility] Department of Surgery Blue Surgery Progress [...] 0659 04/30/12 07 - 05/01/12 0659 Shift 6892-9467 1496-4874 7640-3455 Daily Total 6062-7035 6428-3073 1251-7075 Daily Total I N T A K E [address]. [address] 796 587 2063 P.O. 620 733 158 2867 I.V. 1977.33 977.5 982.5 3937.33 0 0 [...] O U T P U T Urine 766 757 6710 2004 I/O Urinary Drain Output (Urinary Cath Placement López) 677 460 8869 2004 Shift Total 253 119 5988 2005 NET 2415.83 837.5 307.5 3560.83 0 [...] course Parish Blackburn MD Surgery, R1 Pager: [phone] Parish Arias MD - 11:59 AM PDT [facility] Department of Surgery Blue Surgery Progress [...] Date 04/29/12699 - 04/30/1265804/30/12699 - 05/01/12658 Shift 7526-6569 3837-0380 6377-3054 Daily Total 3343-3438 0893-1128 3709-2343 Daily Total I N T A K E [address] 352 743 5014 [address]O. 620 216 820 1410 I.V. 1977.33 977.5 982.5 3937.33 0 0 [...] O U T P U T Urine 142 257 7966 2004 I/O Urinary Drain Output (Urinary Cath Placement López) 129 434 1202 2004 Shift Total 809 377 0904 2004 NET 2415.83 837.5 307.5 3560.83 0 [...] course Parish Blackburn MD Surgery, R1 Pager: [phone] Sasha Antony MD - 04/30/2012 7:03 AM [...] primary service. JOSE MALAGON MD BILLING INFORMATION [facility] DEPARTMENT: [id number] Place of Service:- Inpatient Date of Service: 04/30/2012 CSN: [id number] Suggested Modifier: GC - Resident Involved Suggested CPT: 72499 - Daily mgmt epidural/subarachnoid drug administration Prolonged [...] the floor later today. SASHA DALY MD [address] [facility], 4th Floor Mail Code: CH4P [place], [place] [address] RosiojMatilde melvin ma - 04/29/2012 [...] if not working though, possible transition to CARE ATTENDANT [facility] Hypotension Fluid bolus as needed to [...] no need for intervention Dispo TRANSFER TO [facility] ONLY Sasha Antony MD - 04/29/2012 [...] making: N/a JOSE MALAGON MD BILLING INFORMATION [facility] DEPARTMENT: [id number] Place of Service:09954- Inpatient Date of Service: 04/29/2012 CSN: [id number] Suggested Modifier: GC - Resident Involved Suggested CPT: 76244 - Daily mgmt epidural/subarachnoid drug administration Prolonged [...] MD Department of Obstetrics & Gynecology, PGY1 [facility] Pager [phone] documented in thi s encounter Plan of [...] [facility] | [address] | [place] [address] | | | SERVICES, CORE | PARK [...] | + + + + + | [facility] | [address] | [place] [address] | | | SERVICES, CORE | PARK [...] + + + + + | [facility] | [address] | [place] [address] | | | SERVICES, CORE | NEAL [...] | + + + + + | [facility] | [address] | [place] [address] | | | SERVICES, CORE | PARK [...] | + + + + + | [facility] | [address] | [place] [address] | | | SERVICES, CORE | [address] | | | + + + + + MAGNESIUM, PLASMA (05/03/2012 6:00 AM PDT) + +-------+ + + + | Component | Value | Ref Range | Performed | Pathologist | | | | | At | Signature | + +-------+ + + + | MAGNESIUM,P | 1.8 | 1.8 - 2.5 mg/dL | COHANDY | | | TALIBMA | | | [...] + + + + + | [facility] | [address] | [place] [address] | | | SERVICES, CORE | NEAL [...] + + + + + | [facility] | [address] | [place] [address] | | | SERVICES, CORE | NEAL [...] [facility] | [address] | [place] [address] | | | SERVICES, CORE | PARK [...] | + + + + + | [facility] | [address] | [place] [address] | | | SERVICES, CORE | NEAL [...] (H) | 60 - 99 mg/dL | [facility] - | | | GLUCOSE, | [...] BRUNNER | [address] | [place], [place] | | | JOHN CONTE OF AR[facility]UN | [address] | [address] | | | TESTS | | | [...] | + + + + + | [facility] | [address] | [place] [address] | | | SERVICES, CORE | PARK [...] [facility] | [address] | [place], [place] | | | JOHN CONTE OF CARE | [address] | [address] | | | TESTS | | | [...] | + + + + + | [facility] | [address] | [place] [address] | | | GAVIN, CORE | PARK [...] + + + + + | [facility] | [address] | [place] [address] | | | SERVICES, CORE | NEAL [...] | + + + + + | [facility] | [address] | [place] [address] | | | SERVICES, CORE | NEAL [...] (H) | 60 - 99 mg/dL | [facility] - | | | GLUCOSE, | [...] BRUNNER | [address] | [place], [place] | | | [facility] | [facility] | [address] | | | TESTS | | | [...] KANNAN | [address] | [place], [place] | | | [facility] | [address] | [address] | | | TESTS | | | [...] | + + + + + | [facility] | [address] | [place] [address] | | | SERVICES, CORE | NEAL [...] | + + + + + | [facility] | [address] | [place] [address] | | | GAVIN, CORE | [address] | | | + + + + + MAGNESIUM, PLASMA (04/30/2012 6:42 AM PDT) + +-------+ + + + | Component | Value | Ref Range | Performed | Pathologist | | | | | At | Signature | + +-------+ + + + | MAGNESIUM,P | 1.8 | 1.8 - 2.5 mg/dL | COHANDY | | | TALIBMA | | | [...] + + + + + | [facility] | [address] | [place] [address] | | | SERVICES, CORE | NEAL [...] + + | [facility] | [address] | [place] [address] | | | SERVICES, [facility] | [facility] | | | + + + + + OPERATION RECORD (04/29/2012 5:13 PM PDT) + + | Transcriptions | + + | Ruba Muhammad MD - 04/28/2012 10:30 PM PDT Date: | | 04/28/2012ttending Surgeon: Cornelia Knutson M.D.Topography Technician(s): | | VENKATA Mcclainreoperative Diagnosis(es):Gallbladder | | [...] with an incidental finding of | | S8awdpmgoftla adenocarcinoma at her recent laparoscopic cholecystectomy foracute | | cholecystitis. Her pathology was reviewed at [facility]. She underwent aCT scan, which | [...] for RSI | | was completed.Cornelia Knutson M.D.[facility] ([facility])Professor | | and Vice-Tie Fastener of SurgeryThe Shahriar Nava Chair for Pancreatic Disease | | ResearchPancreatic/ HepatoBiliary and Foregut Working GroupsMail Code [id number] [facility] | | [place], [place]. [address]Dolfy Fax [phone] | | [phone]: [email or web address] Knutson M.D.Professor and Vice-Tie Fastener of | | SurgeryThe Shahriar Nava Chair for Pancreatic Disease ResearchRiverview Regional Medical Center | | [place] ([facility])Division of Gastrointestinal and General Surgery / [id number] / | | [id number] / [id number] / T: 04/28/2012 | |with electrocautery. Biopsy [...] | | | |Cornelia Knutson M.D. | |[facility] ([facility]) | |Professor and Vice-Tie Fastener of Surgery | |The Shahriar Nava Chair for Pancreatic Disease Research | |Pancreatic/ HepatoBiliary and Foregut Working Groups | |Mail Code [id number] | |[address] [facility] | |[place], [place]. [address] | | | | | |email: [email or web address] | | | | | |Cornelia Knutson M.D. | |Professor and Vice-Tie Fastener of Surgery | |The Shahriar Nava Chair for Pancreatic Disease Research | |[facility] ([facility]) | |Division of Gastrointestinal and General Surgery | | | |JS / HS | |[id number] / [id number] / [id number] / | | | | | + + CBC (04/29/2012 1:43 AM PDT) + + + + + + | Component | Value | Ref Range | Performed | Pathologist | | | | | At | Signature | + + + + + + | WBC COUNT | 10.5 | 4.4 - 11.0 K/cu | [facility] | | | | | mm | [...] [facility] | [address] | [place] [address] | | | SERVICES, CORE | PARK [...] + + + + + | [facility] | [address] | [place] [address] | | | SERVICES, CORE | [address] | | | + + + + + MAGNESIUM, PLASMA (04/29/2012 1:43 AM PDT) + +-------+ + + + | Component | Value | Ref Range | Performed | Pathologist | | | | | At | Signature | + +-------+ + + + | MAGNESIUM,P | 2.5 | 1.8 - 2.5 mg/dL | [facility] | | | LASMA | | | [...] | + + + + + | [facility] | [address] | [place] [address] | | | SERVICES, CORE | PARK [...] + + + + + | [facility] | [address] | [place] [address] | | | SERVICES, CORE | PARK [...] in | | | | | | [facility]. No | | | | | | [...] [facility] | [address] | [place] [address] | | | SERVICES, CORE | PARK [...] | + + + + + | [facility] | [address] | [place] [address] | | | SERVICES, CORE | PARK [...] | + + + + + | [facility] | [address] | [place] [address] | | | SERVICES, CORE | NEAL [...] + + | [facility] | [address] | [place] [address] | | | SERVICES, CORE | PARK [...] | + + + + + | [facility] | [address] | [place] [address] | | | SAM ALONSO | NEAL [...] | 1.0 | 0.5 - 1.6 | COSU - | | | | | mmol/L [...] [facility] | [address] | [place], [place] | | | [facility] OF [facility] | [facility] | [address] | | | TESTS | | | [...] BRUNNER | [address] | [place], [place] | | | DG POINT OF CARE | [address] | [address] | | | TESTS | | | [...] [facility] | [address] | [place], [place] | | | DG POINT OF CARE | [address] | [address] | | | TESTS | | | [...] - [facility] | [address] | [place], [place] | | | JOHN CONTE OF CARE | [address] | [address] | | | TESTS | | | [...] + + + | [facility] | [address] | [place], [place] | | | DG POINT OF CARE | [address] | [address] | | | TESTS | | | [...] [facility]QU[facility] | [address] | [place], [place] | | | DG POINT OF CARE | [address] | [address] | | | TESTS | | | [...] - [facility] | [address] | [place], [place] | | | JOHN CONTE OF CARE | [address] | [address] | | | TESTS | | | [...] BRUNNER | [address] | [place], [place] | | | DG POINT OF CARE | [address] | [address] | | | TESTS | | | [...] bed. | | | | | | Big Data Lead | | | | | | sections [...] vein. | | | | | | Big Data Lead | | | | | | sections [...] | | | | | | [id number], artists' booking representative | | | | | | [...] | + + + + + | [facility] | [address] | [place] [address] | | | PATHOLOGY | [address] [...]
--- OUTSIDE RECORDS SUMMARY | ~2019-06-13 | XMS | Encounter Summary ---
Demographics + + + | Address | [address] | | | [place] [address] | + + + | Home Phone [...] | [facility] | | | and Eduardoana | + + + | Organization | 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, | [address] [place]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 | MD [address] | [place], | | | | | (HCC) | [address] | [place] [address] | | | | | Procedures | [place], | Phone: | | | | | [place] CISPLAT[place] | [place] [address] | [phone] | | | | | 10 MG | Phone: | Fax: | | | | | INJECTION | [phone] | [phone] | | | | | [place] | Fax: | | | | | | GEMCITABINE | [phone] | | | | | | HCL | | | | | | | INJECTION, | | | | | | | 200 MG [place] | | | | | | | DIPHENHYDRAM | | | | | | | INE HCL | | | | | | | INJECTIO, 50 | | | | | | | MG [place] | | | | | | | METHYLPREDNI | | | | | | | SOLONE | | | | | | | INJECTION, | | | | | | | 125 MG [place] | | | | | | | FILGASTIM | | | | | | | (ZARXIO) 300 | | | | | | | MCG/0.5ML | | | | | | | SOSY, PER 1 | | | | | | | MCG [place] | | | | | | | ONDANSETRON | | | | | | | HCL | | | | | | | INJECTION, 1 | | | | | | | MG [place] | | | | | | | DEXAMETHASON | | | | | | | E SODIUM | | | | | | | PHOS, 1 MG | | | | | | | IL | | | | | | | FOSAPREPITAN | | | | | | | T INJECTION, | | | | | | | 1 MG IL | | | | | | | NORMAL | | | | | | | SALINE | | | | | | | SOLUTION | | | | | | | INFUS, 500 | | | | | | | ML IL | | | | | | | NORMAL | | | | | | | SALINE | | | | | | | SOLUTION | | | | | | | INFUS, 250 | | | | | | | ML IL | | | | | | | STERILE | | | | | | | WATER/SALINE | | | | | | | , 10 ML [place] | | | | | | | CHEMOTHER, | | | | | | | IV PUSH,EA | | | | | | | ADD DRUG IL | | | | | | | CHEMOTHER, | | | | | | | IV INFUSION, | | | | | | | 1 HR IL | | | | | | | CHEMOTHER, | | | | | | | IV INFUSION, | | | | | | | EA HR IL | | | | | | | CHEMOTHER,NO | | | | | | | N-HORMONE | | | | | | | ANTI-NEOPL, | | | | | | | SUB-Q/IM IL | | | | | | | [...] + + | 08/06/ | Hospital | [facility] | Vladimir Robles, | Gallbladder cancer, | | 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 | + +--------+ [...] + | [facility] | [address] | [place] | [phone] | | [facility] | | [address] | | | - LABORATORY | | [...] [place] | | | | | | [address] | | | | + + + + + + + + | Specimen | + + | Blood | + + + + + + + | Performing | Address | City/State/Zipcode | Phone Number | | Organization | | | | + + + + + | [facility] | [address] | [place] [address] | [phone] | + + + + + Lactate [...] [address] | [place] | [phone] | | [facility] | | [address] | | | - LABORATORY | | [...] | 0.95 | 0.60 - 1.30 | [place] | | | | | mg/dL | [facility] | | | | | | MEDICAL | | | | | | CENTER - | | | | | | LABORATORY | | + + + + + + | eGFR if not | >60Comment: GLOMERULAR | >=60 | [facility] | | | | FILTRATION | mL/min/1.73m2 | [facility] | | | MALIAN | RATE,ESTIMATED | | MEDICAL | | | | mL/min/1.34q8Mtev than | | CENTER - | | [...] [address] | [place] | [phone] | | [facility] | | [address] | | | - LABORATORY | | [...] [address] | [place] | [phone] | | [facility] | | [address] | | | - LABORATORY | | [...] [address] | [place] | [phone] | | [facility] | | [address] | | | - LABORATORY | | [...]
--- OUTSIDE RECORDS SUMMARY | ~2019-06-13 | XMS | Encounter Summary ---
Demographics + + + | Address | [address] | | | [place] [address] | + + + | Home Phone [...] Team Providers + +------+ + | Care Tool Maker Bench Name | Role | Phone | + [...] Pharmacy | | | | | | [address] | | | | | | [address] [place], [place] | | | | | | [address] | | | | | | [phone] | | | +--------+ + + + [...]
--- OUTSIDE RECORDS SUMMARY | ~2019-06-13 | XMS | Encounter Summary ---
Demographics + + + | Address | [address] | | | [place] [address] | + + + | Home Phone [...] + | Author | [facility] | | | and Eduardoana | + + + | Organization | [facility] | | | and Eduardoana | + + + | Address | Unknown | + + + | Phone | Unavailable | + + + Support + + + + + | Name | Relationship | Address | Phone | + + + + + | Poncho Oquendo | ECON | [address] | | | | | [place] | | | | | [address] | | + + + + + | Marta Upton | ECON | [place] | | | | | [address] | | + + + + + Care Team Providers + +------+ + | Care Continuous Mining Operator Name | Role | Phone | [...] in | [address] | [address] | | | | | breast | [address] | [place], | | | | | Procedures | STREET | [place] | | | | | LUPE BREAST | [place], | [address] | | | | | BIOPSY RIGHT | [place] | Phone: | | | | | | [address] | [phone] | | | | | | Phone: | Fax: | | | | | | [phone] | [phone] | | | | | | Fax: | | | | | | | [phone] | | +--------+--------+ + + + + Encounter Details +--------+ + + + + | Date | Type | Department | Care Team | Description | +--------+ + + + + | 03/05/ | Hospital | [facility] | Reinaldo, | Mass of breast, | | 2017 | Encounter | MED CTR MAMMOGRAPHY | Epifanio Soler MD [address] | right | | | | [address] | [address] [place] | | | | | [place], [place] | [place] [address] | | | | | [address] | [phone] | | | | | [phone] | | | | | | | [...] [address] | | | | | | [place] [address] | | | | | | [phone] | | | | | | | [...] At | + + + | EXAM: [facility] TOMOSYN DIAGNOSTIC RIGHT dated 03/05/2016 [...] In - 03/05/2016 2:52 PM PST EXAM: [facility] TOMOSYN DIAGNOSTIC RIGHT | | dated 03/05/2016 [...]
--- OUTSIDE RECORDS SUMMARY | ~2019-06-13 | XMS | Encounter Summary ---
Demographics + + + | Address | [address] | | | [place] [address] | + + + | Home Phone [...] + | Author | [facility] | | | and Eduardoana | + + + | Organization | [facility] | | | and Eduardoana | + + + | Address | Unknown | + + + | Phone | Unavailable | + + + Support + + + + + | Name | Relationship | Address | Phone | + + + + + | Poncho Oquendo | ECON | [address] | | | | | [facility] [facility] [place] [place] | | | | | [address] | | + + + + + | Marta Upton | ECON | [place], [place] | | | | | [address] | | + + + + + Care Team Providers + +------+ + | Care Hydropulper Operator Name | Role | Phone | + +------+ + PCP | Unavailable | + +------+ + Encounter Details +--------+ + + + + | Date | Type | Department | Care Team | Description | +--------+ + + + + | 03/19/ | Hospital | [facility] | | | | 2013 | Encounter | MED CTR XRAY [address] | | | | | | [place] | | | | | | [place] [address] | | | | | | [phone] | | | +--------+ + + + [...] [address] | | | | | | [place] [address] | | | | | | [phone] | | | | | | | [...] Performed At | + + + | [facility] Diagnostic Imaging | [place] | | Department [address], [place] | [facility] | | [ rep ct [address]] [ rep ct [facility] | | st zip] Signed | - IMAGING | | | | | Patient Name: JENELLEAURA HANSON Physician: | | | [id number] : 1960 Age: 52 Sex: F Unit #: [id number] | | | Exam Date: 03/19/13 Location: [facility] | | | Report #: [id number] Page: | | | %(RAD)RES..mtdd.print.filter("pg") of %(RAD) | | | RES..mtdd.print.filter("tpg") | | | | | | Accession Number: [id number] | | | CT ABDOMEN WITH CONTRAST [...] | | | Transcribed Date/Time: 03/19/2013 18:25 Filling Station Equipment Mechanic: | | | MS1 <<Signature on File>> | | | Mathieu | | | Emir Brasher MD03/19/131940 <Electronically signed by Mathieu Field | | | Anshu LI> Mathieu Brasher MD 03/19/13 1446 | | | Filling Station Equipment Mechanic: Catarino [id number]/03/14 1825 | | | Epifanio Najera MD | | + + + + + + + + | Performing | Address | City/State/Zipcode | Phone Number | | Organization | | | | + + + + + | [facility] | [address] | [place] | [phone] | | [facility] | | [address] | | | - IMAGING | | | | + + + + + documented in this encounter Visit Diagnoses Not on filedocumented in this encounter
--- OUTSIDE RECORDS SUMMARY | ~2019-06-13 | XMS | Encounter Summary ---
Demographics + + + | Address | [address] | | | [place] [address] | + + + | Home Phone [...] Providers + +------+ + | Care Health Companion Name | Role | Phone | + [...] Pharmacy | | | | | | [address] | | | | | | [place], [place] | | | | | | [address] | | | | | | [phone] | | | +--------+ + + + [...]
--- OUTSIDE RECORDS SUMMARY | ~2019-06-13 | XMS | Encounter Summary ---
Demographics + + + | Address | [address] | | | [place] [address] | + + + | Home Phone [...] Team Providers + +------+ + | Care Venetian Blind Washer Name | Role | Phone | + [...] Mailcode: | | | | | | [place], [place] | [facility] | | | | | | [address] | for Health | | | | | | Phone: | and Healing, | | | | | | [phone] | Building [address], | | | | | | Fax: | 7th Floor | | | | | | [phone] | [place], [place] | | | | | | | [address] | | | | | | | Phone: | | | | | | | [phone] | | | | | | | Fax: | | | | | | | [phone] | +--------+--------+ + + + + Encounter Details +--------+---------+ + + + | Date | Type | Department | Care Team | Description | +--------+---------+ + + + | 05/17/ | Office | Hematology/Medical | Elva Grey, | Gallbladder cancer | | 2013 | Visit | Oncology at [facility] | [address] | (HCC) (Primary Dx); | | | | [address] | [address] | Post-operative pain | | | | Mailcode: CH7 | [place] [address] | | | | | [facility] | [phone] | | | | | and Healing, | | | | | | Building 1, | | | | | | Floor [place], [place] | | | | | | [address] | | | | | | [phone] | | | +--------+---------+ + + + [...] History Narrative Pt has SO. Lives in [place]. 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 [...] and RT based on nomograms developed at [facility] based on SEER database. As there is no standard adjuvant regimen for this disease we have followed the regimen receloreto fitzgerald studied in the completed S0809 trial. This is Powell/Cap for 4 cycles, then restaging and chemoradiation with Cape as below: Capecitabine 750mg/m2 BID days 1-14 Gemcitabine 1000mg/m2 IV days 1,8 Every 21 days for 4 cycles Followed by: Capecitabine 665mg/m2 BID concurrent with RT She is currently only 3 weeks out from surgery and not yet ready for chemotherapy. She is from the [facility] and would like to get therapy closer to home. She states that she l oves closest to the [facility] and would like a referral to [...]
--- OUTSIDE RECORDS SUMMARY | ~2019-06-13 | XMS | Encounter Summary ---
Demographics + + + | Address | [address] | | | [place] [address] | + + + | Home Phone [...] Team Providers + +------+ + | Care Plan Coordinator Name | Role | Phone | [...] Pharmacy | | | | | | [address] | | | | | | Loop [place], [place] | | | | | | [address] | | | | | | [phone] | | | +--------+ + + + [...]
--- OUTSIDE RECORDS SUMMARY | ~2019-06-13 | XMS | Encounter Summary ---
Demographics + + + | Address | [address] | | | [place] [address] | + + + | Home Phone [...] | Author | [facility] | | | and Eduardoana | + + + | Organization | [facility] | | | and Eduardoana | + + + | Address | Unknown | + + + | Phone | Unavailable | + + + Support + + + + + | Name | Relationship | Address | Phone | + + + + + | Poncho Oquendo | ECON | [address] | | | | | [place] | | | | | [address] | | + + + + + | Marta Upton | ECON | [place] | | | | | [address] | | + + + + + Care Team Providers + +------+ + | Care Wildlife Officer Name | Role | Phone | + +------+ + | Valeriy Carmona DO | PCP | | + +------+ + Encounter Details +--------+ + + + + | Date | Type | Department | Care Team | Description | +--------+ + + + + | 09/16/ | Hospital | [facility] | [facility], | Gallbladder cancer, | | 2015 | Encounter | MED CTR MEDICAL | Epifanio Soler MD [address] | carcinoma (HCC) | | | | ONCOLOGY CLINIC [address] [place] | (Primary Dx); | | | | [address] | [place] [address] | Ovarian cyst; | | | | [place] [address] | [phone] | Personal history of | | | | [phone] | | malignant neoplasm | | | | | | of other site in | | | | | | gastrointestinal | | | | | | tract; Liver enzyme | | | | | | elevation | +--------+ + + + + Social [...] [address] | | | | | | [place] [address] | | | | | | [phone] | | | | | | | | +--------+---------+ + + + documented as of this encounter Procedures + +--------+ + + + | Procedure Name | Priori | Date/Time | Associated Diagnosis | Comments | | | ty | | | | + +--------+ + + + | CA 19-9, QUANT | STAT | 09/16/2014 | Personal history | Results for this | | | | 11:18 AM | of 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procedure are in the | | | | PDT | neoplasm of other | results section. | | | | | site in | | | | | | gastrointestinal | | | | | | tract | | + +--------+ + + + | HEPATITIS PANEL, | STAT | 09/16/2014 | Liver enzyme | Results for this | | ACUTE | | 11:18 AM | elevation | procedure are in the | | | | PDT | | results section. | + +--------+ + + + | CBC WITH | STAT | 09/16/2014 | Personal history | Results for this | | DIFFERENTIAL | | 11:18 AM | of 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procedure are in the | | | | PDT | neoplasm of other | results section. | | | | | site in | | | | | | gastrointestinal | | | | | | tract | | + +--------+ + + + | CA 125, QUANT | STAT | 09/16/2014 | Ovarian cyst | Results for this | | | | 11:18 AM | | procedure are in the | | | | PDT | | results section. | + +--------+ + + + | LACTATE | STAT | 09/16/2014 | Personal history | Results for this | | DEHYDROGENASE | | 11:18 AM | of 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procedure are in the | | | | PDT | neoplasm of other | results section. | | | | | site in | | | | | | gastrointestinal | | | | | | tract | | + +--------+ + + + | CEA | STAT | 09/16/2014 | Personal history | Results for this | | | | 11:18 AM | of 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procedure are in the | | | | PDT | neoplasm of other | results section. | | | | | site in | | | | | | gastrointestinal | | | | | | tract | | + +--------+ + + + | COMPREHENSIVE | STAT | 09/16/2014 | Personal history | Results for this | | METABOLIC PANEL | | 11:18 AM | of 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procedure are in the | | | | PDT | neoplasm of other | results section. | | | | | site in | | | | | | gastrointestinal | | | | | | tract | | + +--------+ + + + documented in this encounter Results Lactate Dehydrogenase (09/16/2014 11:18 AM PDT) + +-------+ + + + | Component | Value | Ref Range | Performed | Pathologist | | | | | At | Signature | + +-------+ + + + | LDH TOTAL | 160 | 91 - 180 U/L | [facility] | | | | | [facility] | | | | | | MEDICAL | | | | | | CENTER - | | | | | | LABORATORY | | + +-------+ + + + + + | Specimen | + + | Blood | + + + + + + + | Performing | Address | City/State/[facility] | Phone Number | | Organization | | | | + + + + + | [facility] | [address] | [place] | [phone] | | [facility] | | [address] | | | - LABORATORY | | [...] | | | | Performed: [facility], [address] | | | | | | [address], [place] | | | | | | [address] | | | | + + + + + + + + | Specimen | + + | Blood specimen | | (specimen) | + + + + + + + | Performing | Address | City/State/Zipcode | Phone Number | | Organization | | | | + + + + + | [facility] | [address] | [place] [address] | [phone] | + + + + + Comprehensive [...] | mL/min/1.73m2 | [facility] | | | PRYDEINIG | RATE,ESTIMATED | | MEDICAL | | | | mL/min/1.99v4Askk than | | CENTER - | | [...] 3.7 | 3.2 - 5.0 g/dL | [facility] | | | | [...] [address] | [place] | [phone] | | [facility] | | [address] | | | - LABORATORY | | [...] + | [facility] | [address] | [place] | [phone] | | [facility] | | [address] | | | - LABORATORY | | [...] | | | | | | [facility] | | | | | [...] + | [facility] | [address] | [place], [place] | [phone] | | [facility] | | [address] | | | - LABORATORY | | [...] | | | | | | [place] [address] | | | | + + + [...] [address] | [place] [address] | [phone] | + + + + + CA 125, Quant (09/16/2014 11:18 [...] 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
--- OUTSIDE RECORDS SUMMARY | ~2019-06-13 | XMS | Encounter Summary ---
Demographics + + + | Address | [address] | | | [place] [address] | + + + | Home Phone [...] + | Author | [facility] | | | and Eduardoana | + + + | Organization | [facility] | | | and Eduardoana | + + + | Address | Unknown | + + + | Phone | Unavailable | + + + Support + + + + + | Name | Relationship | Address | Phone | + + + + + | Poncho Oquendo | ECON | [address] | | | | | [place] | | | | | [address] | | + + + + + | Marta Upton | ECON | [place] | | | | | [address] | | + + + + + Care Team Providers + +------+ + | Care Stereotyper Helper Name | Role | Phone | [...] STREET | | | | | FROM [facility]- | [place], | [place], | | | | | LABS/PORT | [place] [address] | [place] [address] | | | | | 6 HOUR RX | Phone: | Phone: | | | | | Procedures | [phone] | [phone] | | | | | [facility] | Fax: | Fax: | | | | | FOLLOW UP | [phone] | [phone] | +--------+--------+ + + + + Encounter Details +--------+ + + + + | Date | Type | Department | Care Team | Description | +--------+ + + + + | 05/20/ | Hospital | [facility] | Vladimir Robles, | Gallbladder cancer, | | 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 | MED CTR MEDICAL | [address] | carcinoma (HCC) | | | | ONCOLOGY CLINIC [address] [place], | (Primary Dx); Liver | | | | [address] [place] | [place] [address] | metastases (HCC); | | | | [place] [address] | [phone] | Stage 3a chronic | | | | [phone] | | kidney disease; | | | [...] fr om the original. Hematology-Oncology Progress Note [facility] Pt. Name/Age/: Aura Upton 56 y.o. 1960 CSN: [id number] Date of service: 05/20/2017 Provider: Vladimir Robles [...] adjustment of her ch emotherapy, specifically the cis-nunam iqua given her renal dysfunction. 1. Proceed with day 1, cycle 1 of dose adjusted cis-nunam iqua and gemcitabine as ordered. 2. Increase OxyContin [...] nausea, has decided to t ry palliative cis-nunam iqua/gemcitabine again to which she has responded in [...] and 6 hour treatment, labs done in [facility]. My chart: Medications: Current Outpatient Prescriptions Medication [...] this chart may have been created with [employer] voice recognition software. Occasi onal wrong-word or [...] [address] | | | | | | [place] [address] | | | | | | [phone] | | | | | | | [...]
--- OUTSIDE RECORDS SUMMARY | ~2019-06-13 | XMS | Encounter Summary ---
Demographics + + + | Address | [address] | | | [place] [address] | + + + | Home Phone [...] | Author | [facility] | | | and Eduardoana | + + + | Organization | [facility] | | | and Eduardoana | + + + | Address | Unknown | + + + | Phone | Unavailable | + + + Support + + + + + | Name | Relationship | Address | Phone | + + + + + | Poncho Oquendo | ECON | [address] | | | | | [place] | | | | | [address] | | + + + + + | Marta Upton | ECON | [place] | | | | | [address] | | + + + + + Care Team Providers + +------+ + | Care Elementary Supervisor Name | Role | Phone | [...] STREET | | | | | FROM [facility]- | [place], | [place], | | | | | LABS/PORT | [place] [address] | [place] [address] | | | | | 6 HOUR RX | Phone: | Phone: | | | | | Procedures | [phone] | [phone] | | | | | [facility] | Fax: | Fax: | | | | | FOLLOW UP | [phone] | [phone] | +--------+--------+ + + + + Encounter Details +--------+ + + + + | Date | Type | Department | Care Team | Description | +--------+ + + + + | 05/20/ | Hospital | [facility] | Vladimir Robles, | Gallbladder cancer, | | 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 | MED CTR MEDICAL | [address] | carcinoma (HCC) | | | | ONCOLOGY CLINIC [address] [place], | (Primary Dx); Liver | | | | [address] [place] | [place] [address] | metastases (HCC); | | | | [place] [address] | [phone] | Stage 3a chronic | | | | [phone] | | kidney disease; | | | [...] fr om the original. Hematology-Oncology Progress Note [facility] Pt. Name/Age/: Aura Upton 56 y.o. 1960 CSN: [id number] Date of service: 05/20/2017 Provider: Vladimir Robles [...] adjustment of her ch emotherapy, specifically the cis-nulato given her renal dysfunction. 1. Proceed with day 1, cycle 1 of dose adjusted cis-nulato and gemcitabine as ordered. 2. Increase OxyContin to 40 mg every 12 hours. 3. Increase hydromorphone to 4 6 milligrams every 3 hours as needed for pain. 4. Prescription for Zofran tablets given. 5. Back in a week for day 8 treatment. Subjective: The patient chart and medications were reviewed in detail and the patient was seen and exam ined. Aura Uptno is a 56 y.o. female with metastatic cholangiocarcinoma here for chemothera py. Patient has the above complicated oncologic history, most recently on pembrolizumab without benefit. In the last few weeks she has had progressive pain, also nausea, has decided to t ry palliative cis-nulato/gemcitabine again to which she has responded in [...] and 6 hour treatment, labs done in [facility]. My chart: Medications: Current Outpatient Prescriptions Medication [...] this chart may have been created with [employer] voice recognition software. Occasi onal wrong-word or [...] [facility] | | | | | | [place] [address] | | | | | | [phone] | | | | | | | [...]
--- OUTSIDE RECORDS SUMMARY | ~2019-06-13 | XMS | Encounter Summary ---
Demographics + + + | Address | [address] | | | [place] [address] | + + + | Home Phone [...] Providers + +------+ + | Care Medical Geneticist Name | Role | Phone | + [...] Mojica | (distress); | | | | [facility] | [address] | Questionnaire | | | | for Health and | [facility] [place] [address] | | | | | Healing [address] | [phone] | | | | | [place], | | | | | | [place] [address] | | | | | | [phone] | | | +--------+ + + + [...]
--- OUTSIDE RECORDS SUMMARY | ~2019-06-13 | XMS | Encounter Summary ---
Demographics + + + | Address | [address] | | | [place] [address] | + + + | Home Phone [...] Team Providers + +------+ + | Care Legal Practice Manager Name | Role | Phone | + +------+ + | Prudencio Isaac MD | PCP | | + +------+ + Encounter Details +--------+ + + + + | Date | Type | Department | Care Team | Description | +--------+ + + + + | 04/21/ | Telephone | Digestive Health | Tai Stanton, | | | 2012 | | Center at [facility] [address] | [address] | | | | | [address] | [facility] | | | | | for [facility] and | [place], [place] | | | | | [facility], [place] [address] | [address] | | | | | [place], [place] | [phone] | | | | | [address] | | | | | | [phone] | | | +--------+ + + + [...]
--- OUTSIDE RECORDS SUMMARY | ~2019-06-13 | XMS | Encounter Summary ---
Demographics + + + | Address | [address] | | | [place] [address] | + + + | Home Phone [...] Team Providers + +------+ + | Care Impregnating Machine Operator Name | Role | Phone [...] | | | Reconstructive | [address] [place], | | | | | Services at [facility] | [place] [address] | | | | | [address] | [phone] | | | | | Mailcode: [facility] | | | | | | Center for [facility] | | | | | | and Healing, | | | | | | Building , | | | | | | [place], [place] | | | | | | [address] | | | | | | [phone] | | | +--------+ + + + [...]
--- OUTSIDE RECORDS SUMMARY | ~2019-06-13 | XMS | Encounter Summary ---
Demographics + + + | Address | [address] | | | [place] [address] | + + + | Home Phone [...] | Author | [facility] | | | and Eduardo[place] | + + + | Organization | [facility] | | | and [place]ardo[place] | + + + | Address | Unknown | + + + | Phone | Unavailable | + + + Support + + + + + | Name | Relationship | Address | Phone | + + + + + | Poncho Oquendo | ECON | [address] | | | | | [facility], [place] | | | | | [address] | | + + + + + | Marta Upton | ECON | [place], [place] | | | | | [address] | | + + + + + Care Team Providers + +------+ + | Care Car Wiper Name | Role | Phone | + +------+ + PCP | Unavailable | + +------+ + Encounter Details +--------+ + + + + | Date | Type | Department | Care Team | Description | +--------+ + + + + | 03/12/ | Hospital | [facility] | Hakan Cherry | | | 2011 | Encounter | MED CTR XRAY [address] | [address] | | | | | [place] | [address] [place], [place] | | | | | [place] [address] | [address] | | | | | [phone] | | | +--------+ + + + [...] | Visit | | DO [address] [facility] | | | | | | [place] [address] | | | | | | [phone] | | | | | | | | +--------+---------+ + + + documented as of this encounter Procedures + +--------+ + + + | Procedure Name | Priori | Date/Time | Associated Diagnosis | Comments | | | ty | | | | + +--------+ + + + | XR HIP RIGHT 2 + VW | | 03/12/2011 | | Results for this | | | | 10:07 AM | | procedure are in the | | | | PST | | results section. | + +--------+ + + + | XR LUMBAR SPINE 2 [place] | | 03/12/2011 | | Results for this | | 3 VW | | 10:07 AM | | procedure are in the | | | | PST | | results section. | + +--------+ + + + documented in this encounter Results XR Hip Right 2 + Vw (03/12/2011 10:07 AM PST) + + | Specimen | + + | | + + + + + | Narrative | Performed At | + + + | [facility] Diagnostic Imaging Department | [facility] | | [address] [place] [place] | [facility] | | RIGHT HIP, 03/12/2011 | DIAG IMG | | CLINICAL HISTORY: PAIN. FINDINGS: AP view of the pelvis and | | | frogleg view of the right hip show no fracture or bony destructi ve | | | change. The joint relationships are normal both at the hip and | | | sacroiliac and symphysis pubis join ts. No bony destructive or | | | degenerative changes are seen. The adjacent soft tissues are normal. | | | IMPRESSION: 1. NEGATIVE STUDY OF THE RIGHT HIP. Dictated | | | Date/Time: 03/12/2011 11:24 Transcribed Date/Time: 03/12/2011 | | | 11:29 Supply Chain Generalist: <Electronically Signed by Alejandro Keller | | | MD Mo> 03/12/11 1459 | | + + + + + | Procedure Note | + + | Edmundo, Hardy Conversion - 03/23/2013 4:[address] [facility] | | Diagnostic Imaging Department [address] [facility] [place] | | RIGHT HIP, 03/12/2011 CLINICAL HISTORY: PAIN. FINDINGS: | | AP view of the pelvis and frogleg view of the right hip show no fracture or bony | | destructive change. The joint relationships are normal both at the hip and sacroiliac | | and symphysis pubis joints. No bony destructive or degenerative changes are seen. The | | adjacent soft tissues are normal. IMPRESSION: 1. NEGATIVE STUDY OF THE RIGHT HIP. | | Dictated Date/Time: 03/12/2011 11:24Transcribed Date/Time: 03/12/2011 | | 11:29Transcriptionist: <Electronically Signed by Alejandro Hassan MD> 03/12/11 | | 0719 | |FINDINGS: AP view of the pelvis and frogleg view of the right hip show no fracture or bony destructi | |ve change. The joint relationships are normal both at the hip and sacroiliac and symphysis pubis join | |ts. No bony destructive or degenerative changes are seen. The adjacent soft tissues are nor mal. | | | |IMPRESSION: | |1. NEGATIVE STUDY OF THE RIGHT HIP. | | | |Dictated Date/Time: 03/12/2011 11:24 | |Transcribed Date/Time: 03/12/2011 11:29 | |Supply Chain Generalist: | |<Electronically Signed by Alejandro Hassan MD> 03/12/11 6775 | + + + +---------+ + + | Performing | Address | City/State/Zipcode | Phone Number | | Organization | | | | + +---------+ + + | [facility] [place] | | | | | [facility] | | | | + +---------+ + + XR Lumbar Spine 2 or 3 Vw (03/12/2011 10:07 AM PST) + + | Specimen | + + | | + + + + + | Narrative | Performed At | + + + | [facility] Diagnostic Imaging Department | [facility] | | [address] [facility] | [facility] | | LATERAL VIEWS, LUMBAR SPINE | DIAG IMG | | CLINICAL HISTORY: BACK PAIN. FINDINGS: Standing lateral views | | | of the lumbar spine in neutral, flexion and extension positions are | | | reviewed. There are 5 lumbar segments. Alignment is normal. | | | Vertebral body heights are normally m aintained. The disk | | | interspaces are normal. There is no change in alignment in flexion | | | or extension . No significant bony degenerative change is seen. | | | IMPRESSION: 1. NO RADIOGRAPHIC DEMONSTRATION OF INSTABILITY IN | | | THE LUMBAR SPINE. Dictated Date/Time: 03/12/2011 11:23 | | | Transcribed Date/Time: 03/12/2011 11:29 Supply Chain Generalist: | | | <Electronically Signed by Alejandro Hassan MD> 03/12/11 1459 | | + + + + + | Procedure Note | + + | Hardy Wyatt Conversion - 03/23/2013 4:[address] [facility] | | Diagnostic Imaging Department [address] [facility] [place] | | LATERAL VIEWS, LUMBAR SPINE CLINICAL HISTORY: BACK | | PAIN. FINDINGS: Standing lateral views of the lumbar spine in neutral, flexion and | | extension positions are reviewed. There are 5 lumbar segments. Alignment is normal. | | Vertebral body heights are normally maintained. The disk interspaces are normal. There | | is no change in alignment in flexion or extension. No significant bony degenerative | | change is seen. IMPRESSION: 1. NO RADIOGRAPHIC DEMONSTRATION OF INSTABILITY IN THE | | LUMBAR SPINE. Dictated Date/Time: 03/12/2011 11:23Transcribed Date/Time: 03/12/2011 | | 11:29Transcriptionist: <Electronically Signed by Alejandro Hassan MD> 03/12/11 | | 1459 | | reviewed. There are 5 lumbar segments. Alignment is normal. Vertebral body heights are normally m | |aintained. The disk interspaces are normal. There is no change in alignment in flexion or extension | |. No significant bony degenerative change is seen. | | | |IMPRESSION: | |1. NO RADIOGRAPHIC DEMONSTRATION OF INSTABILITY IN THE LUMBAR SPINE. | | | |Dictated Date/Time: 03/12/2011 11:23 | |Transcribed Date/Time: 03/12/2011 11:29 | |Supply Chain Generalist: | |<Electronically Signed by Alejandro Hassan MD> 03/12/11 1459 | + + + +---------+ + + | Performing | Address | City/State/Zipcode | Phone Number | | Organization | | | | + +---------+ + + | [facility] | | | | | [place] | | | | + +---------+ + + documented in this encounter Visit Diagnoses Not on filedocumented in this encounter"
--- OUTSIDE RECORDS SUMMARY | ~2019-06-13 | XMS | Encounter Summary ---
Demographics + + + | Address | [address] | | | [place] [address] | + + + | Home Phone [...] Team Providers + +------+ + | Care Tele Grout Sewer Line Repairer Name | Role | Phone | [...] & | Diagnoses | Non-[facility] | [employer] Plant Supervisor Onc | | | | Gynecology | Complex | Epic Dept | [address] | | | | | Cystic Mass, | | [address] | | | | | elevated | | [place] | | | | | [address] per | | Alexis, 7th | | | | | appt notes | | floor | | | | | | | [place], [place] | | | | | | | [address] | | | | | | | Phone: | | | | | | | [phone] | | | | | | | Fax: | | | | | | | [phone] | +--------+--------+ + + + + Encounter Details +--------+---------+ + + + | Date | Type | Department | Care Team | Description | +--------+---------+ + + + | 07/23/ | Office | [facility] | Miguel Seymour, | 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 | Health at [place] | [address] | (HCC) (Primary Dx); | | | | Pavilion [address] | [address] | Pelvic mass; | | | | [address] | [place], [place] | Post-operative pain | | | | Alexis, 7th floor | [address] | | | | | [place], [place] | [phone] | | | | | [address] | | | | | | [phone] | | | +--------+---------+ + + + [...] might be different fr om the original. CYBER OPS PLANNER ONCOLOGY RETURN VISIT 07/23/2014 TREATMENT DIAGNOSIS: Stage [...] for pelvic recurrence (can be with regular CYBER OPS PLANNER) 3. Discharge from clinic unless other retirement specialist oncology needs in future Patient seen and discussed with Dr. Henderson, who agrees with the assessment and plan. Lotus Maher MD MATERIALS ASSOCIATE R4 I saw and evaluated the patient [...]
--- OUTSIDE RECORDS SUMMARY | ~2019-06-13 | XMS | Encounter Summary ---
Demographics + + + | Address | [address] | | | [place] [address] | + + + | Home Phone [...] | [facility] | | | and Eduardoana | + + + | Organization | [facility] | | | and Eduardoana | + + + | Address | Unknown | + + + | Phone | Unavailable | + + + Support + + + + + | Name | Relationship | Address | Phone | + + + + + | Poncho Oquendo | ECON | [address] | | | | | [place] | | | | | [address] | | + + + + + | Marta Upton | ECON | [place] | | | | | [address] | | + + + + + Care Team Providers + +------+ + | Care Supervisor Pastry Name | Role | Phone | + [...] | | Personal | Reinaldo, | W Admire | | | | | 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, | [place], | | | | | 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 [address] | [place] [address] | | | | | neoplasm of | [address] | Phone: | | | | | other site | [place], | [phone] | | | | | in | [place] [address] | Fax: | | | | | gastrointest | Phone: | [phone] | | | | | inal tract | [phone] | | | | | | Procedures | Fax: | | | | | | CT Abdomen | [phone] | | | | | | Pelvis [...] | | Personal | Reinaldo, | W Admire | | | | | 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, | [place], | | | | | 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 [address] | [place] [address] | | | | | neoplasm of | [address] | Phone: | | | | | other site | [place], | [phone] | | | | | in | [place] [address] | Fax: | | | | | gastrointest | Phone: | [phone] | | | | | inal tract | [phone] | | | | | | Procedures | Fax: | | | | | | CT Abdomen | [phone] | | | | | | Pelvis w | | | | | | | Contrast | | | +--------+--------+ + + + + Encounter Details +--------+ + + + + | Date | Type | Department | Care Team | Description | +--------+ + + + + | 09/16/ | Hospital | [facility] | Reinaldo, | Personal history of | | 2014 | Encounter | MED CTR [address] | Epifanio Soler MD [address] | malignant neoplasm | | | | Admire [place], | [address] [place] | of other site in | | | | [place] [address] | [place] [address] | gastrointestinal | | | | [phone] | [phone] | tract | | | | | [...] [address] | | | | | | [place] [address] | | | | | | [phone] | | | | | | | [...]
--- OUTSIDE RECORDS SUMMARY | ~2019-06-13 | XMS | Encounter Summary ---
Demographics + + + | Address | [address] | | | [place] [address] | + + + | Home Phone [...] Team Providers + +------+ + | Care Travel Trailer Components Assembler Name | Role | Phone | [...] | | Clinics at | [address] | Release | | | | [facility] | [address] | | | | | for Health and | [place] [address] | | | | | Healing [address] | [phone] | | | | | [place], | | | | | | [place] [address] | | | | | | [phone] | | | +--------+ + + + [...]
--- OUTSIDE RECORDS SUMMARY | ~2019-06-13 | XMS | Encounter Summary ---
Demographics + + + | Address | [address] | | | [place] [address] | + + + | Home Phone [...] | Author | [facility] | | | and Eduardoana | + + + | Organization | [facility] | | | and [place]ardo[place] | + + + | Address | Unknown | + + + | Phone | Unavailable | + + + Support + + + + + | Name | Relationship | Address | Phone | + + + + + | Poncho Oquendo | ECON | [address] | | | | | [place] | | | | | [address] | | + + + + + | Marta Upton | ECON | [place] | | | | | [address] | | + + + + + Care Team Providers + +------+ + | Care Commercial Installer Name | Role | Phone | [...] | | | | [address] [facility] | [place] [address] | | | | | [place] [address] | [phone] | | | | | [phone] | | | +--------+ + + + [...] | | | | [facility] [place] [address] | | | | | | [phone] | | | | | | | | +--------+---------+ + + + documented as of this encounter Visit Diagnoses Not on filedocumented in this encounter"
--- OUTSIDE RECORDS SUMMARY | ~2019-06-13 | XMS | Encounter Summary ---
Demographics + + + | Address | [address] | | | [place] [address] | + + + | Home Phone [...] Team Providers + +------+ + | Care Diploma Pharmacy Technician Name | Role | Phone | [...] | | | | | cancer | [address] | [address] | | | | | (HCC) | [address] | [facility] | | | | | Procedures | [address] | [address] | | | | | CONSULT TO | [facility] [place] | [facility] [place] | | | | | HEMATOLOGY / | [address] | [address] Phone: | | | | | ONCOLOGY | Phone: | [phone] | | | | | PRACTICE | [phone] | Fax: | | | | | | Fax: | [phone] | | | | | | [phone] | | + +--------+ + + + [...] | cancer | [address] | [address] [facility] | | | | | (HCC) | [address] Agosto | Surendra Carreon | | | | | Procedures | [address] | [address] [place], | | | | | CONSULT TO | [place], [place] | [place] | | | | | SURGERY - | [address] | [address] | | | | | GENERAL | Phone: | Phone: | | | | | | [phone] | [phone] | | | | | | Fax: | Fax: | | | | | | [phone] | [phone] | +--------+--------+ + + + + Encounter Details +--------+ + + + + | Date | Type | Department | Care Team | Description | +--------+ + + + + | 06/14/ | Deli/Bakery Associate | [facility] | Miguel Seymour, | Gallbladder cancer | | 2015 | | [facility] | [address] | (HCC) (Primary Dx) | | | | Alex[address] | [facility] | | | | | [address] | [place], [place] | | | | | Alexis, [facility] floor | [address] | | | | | [place], [place] | [phone] | | | | | [address] | | | | | | [phone] | | | +--------+ + + + [...]
--- OUTSIDE RECORDS SUMMARY | ~2019-06-13 | XMS | Encounter Summary ---
Demographics + + + | Address | [address] | | | [place] [address] | + + + | Home Phone [...] Team Providers + +------+ + | Care Disability Attorney Name | Role | Phone | + +------+ + | Valeriy Carmona MD | PCP | | + +------+ + Encounter Details +--------+ + + + + | Date | Type | Department | Care Team | Description | +--------+ + + + + | 03/25/ | Telephone | [facility] | Elva Grey, | | | 2016 | | Clinics at S | [address] | | | | | [facility] | [address] | | | | | [facility] and | [place] [address] | | | | | [facility] [address] | [phone] | | | | | Bienvenido Borges [place], | | | | | | [place] [address] | | | | | | [phone] | | | +--------+ + + + [...]
--- OUTSIDE RECORDS SUMMARY | ~2019-06-13 | XMS | Encounter Summary ---
Demographics + + + | Address | [address] | | | [place] [address] | + + + | Home Phone [...] Author | [facility] | | | and Eduardo[place] | + + + | Organization | [facility] | | | and Eduardoana | + + + | Address | Unknown | + + + | Phone | Unavailable | + + + Support + + + + + | Name | Relationship | Address | Phone | + + + + + | Poncho Oquendo | ECON | [address] | | | | | [facility] [place] [place] | | | | | [address] | | + + + + + | Marta Upton | ECON | [place] | | | | | [address] | | + + + + + Care Team Providers + +------+ + | Care Can Top Setter Name | Role | Phone | [...] + + | 11/29/ | Hospital | [facility] | Pedro Green, | Obstruction of left | | 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 | [facility] | DO [address] | ureter | | | | CARE FLOOR [address] | [place] [address] | | | | | [address] | [phone] | | | | | [place] | | | | | | [address] | | | | | | [phone] | | | +--------+ + + + [...] out of the urethra Date Last Reviewed: 02/15/201619998166-6213 [employer]. [address] [place] [address]. All righ ts reserved. This information is [...] on your doctor's advice. Talk to your rn infusion regarding the use of this medicine in children. Special care may be needed. What side effects may I notice from receiving this medicine? Side effects that you should report to your doctor or health resident care assistant as soon as p ossible: allergic reactions like skin rash, itching or hives, swelling of the face, lips, or tongue blue or purple color of the skin difficulty breathing fever less urine unusual bleeding, bruising unusual tired, weak vomiting yellowing of the eyes or skin Side effects that usually do not require medical attention (report to your doctor or health resident care assistant if they continue or are bothersome): dark [...] if you have any of these conditions: qonhctf-1-lvxyarvlg dehydrogenase (G6PD) deficiency kidney disease an unusual or allergic reaction to phenazopyridine, other medicines, foods, dyes, or preser vatives or trying to get breast-feeding What should I watch for while using this medicine? Tell your doctor or health resident care assistant if your symptoms do not improve or [...] for sugar in your urine. Talk to [facility] health care provider. NOTE:This [...] information carefully each time. Talk to your rn infusion regarding the use of this medicine in children. Special care may be needed. What side effects may I notice from receiving this medicine? Side effects that you should report to your doctor or health resident care assistant as soon as p ossible: allergic reactions [...] attention (report to your doctor or health resident care assistant if they continue or are bothersome): dry [...] watery. Check with your doctor or health resident care assistant if you get an attack of severe diarrhea, nausea and vomiting, or if you sweat a lot. The loss of too much body fluid can make it haile gerous for you to take this medicine. This medicine may affect blood sugar levels. If you have diabetes, check with your doctor o r health resident care assistant before you change your diet or the [...] [address] | | | | | | [place] [address] | | | | | | [phone] | | | | | | | [...] | | | | | | longer, oetxer-ysu-ybnhp use of | | | | | [...]
--- OUTSIDE RECORDS SUMMARY | ~2019-06-13 | XMS | Encounter Summary ---
Demographics + + + | Address | [address] | | | [place] [address] | + + + | Home Phone [...] Team Providers + +------+ + | Care Substation Superintendent Name | Role | Phone | [...] 2012 | | Oncology at [facility] | [address] | Request | | | | [address] [facility] | [facility] [address] | | | | | Mailcode: CH7M | [place] [address] | | | | | [facility] | [phone] | | | | | and Brittny, | | | | | | [facility] | | | | | | [place], [place] | | | | | | [address] | | | | | | [phone] | | | +--------+ + + + [...]
--- OUTSIDE RECORDS SUMMARY | ~2019-06-13 | XMS | Encounter Summary ---
Demographics + + + | Address | [address] | | | [place] [address] | + + + | Home Phone [...] Team Providers + +------+ + | Care Rotary Bar Operator Name | Role | Phone | + +------+ + PCP | Unavailable | + +------+ + Encounter Details +--------+ + + + + | Date | Type | Department | Care Team | Description | +--------+ + + + + | 04/07/ | Academic Tutor | Digestive Health | Tai Stanton, | Gallbladder cancer | | 2012 | | Center at [facility] [address] | [address] | (HCC) (Primary Dx) | | | | [address] | [facility] | | | | | for Health and | [place], [place] | | | | | [facility] [address] | [address] | | | | | [place], [place] | [phone] | | | | | [address] | | | | | | [phone] | | | +--------+ + + + [...] | | | | | | Institution: [facility] | | | | [facility] | | | | | | [facility] [place] | | | | | | Lab,[place], [place] | | | | | | [id number] Accession | | | | | | Number: [id number] | | | | | | Collection [...] | | | | | | Sebastian Marie., | | | | | | Ph.D./Surgical [...] [place] | | | | | | Dotitei | | | | | | analia [...] | + + + + + | [facility] | [address] | [place] [address] | | | PATHOLOGY | [address] | | | + + + + + documented in this encounter Visit Diagnoses + + | Diagnosis | + + | 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
--- OUTSIDE RECORDS SUMMARY | ~2019-06-13 | XMS | Encounter Summary ---
Demographics + + + | Address | [address] | | | [place] [address] | + + + | Home Phone [...] [facility] | | | and Eduardoana | + + + | Organization | [facility] | | | and Eduardoana | + + + | Address | Unknown | + + + | Phone | Unavailable | + + + Support + + + + + | Name | Relationship | Address | Phone | + + + + + | Poncho Oquendo | ECON | [address] | | | | | [place] | | | | | [address] | | + + + + + | Marta Upton | ECON | [place] | | | | | [address] | | + + + + + Care Team Providers + +------+ + | Care Groover And Turner Name | Role | Phone | + [...] | Epifanio Soler MD [address] | ([facility]) (Primary Dx) | | | | ONCOLOGY [address] [place] | | | | | [place], | [place] [address] | | | | | [place] [address] | [phone] | | | | | [phone] | | | +--------+ + + + [...] [address] | | | | | | [place] [address] | | | | | | [phone] | | | | | | | | +--------+---------+ + + + documented as of this encounter Visit Diagnoses + + | Diagnosis | + + | 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
--- OUTSIDE RECORDS SUMMARY | ~2019-06-13 | XMS | Encounter Summary ---
Demographics + + + | Address | [address] | | | [place] [address] | + + + | Home Phone [...] Team Providers + +------+ + | Care Industrial Editor Name | Role | Phone | [...] Phone Call | | | | [facility] | [facility] | | | | | [facility] and | [place], [place] | | | | | [place] [address] | [address] | | | | | [place], [place] | [phone] | | | | | [address] | | | | | | [phone] | | | +--------+ + + + [...]
--- OUTSIDE RECORDS SUMMARY | ~2019-06-13 | XMS | Encounter Summary ---
Demographics + + + | Address | [address] | | | [place] [address] | + + + | Home Phone | | + + + | Preferred Language | Unknown | + + + | Marital Status | | + + + | Adventism Affiliation | Unknown | + + + | Race | Unknown | + + + | Ethnic Group | Unknown | + + + Author + + + | Author | [facility] | | | and Eduardoana | + + + | Organization | [facility] | | | and Eduardoana | + + + | Address | Unknown | + + + | Phone | Unavailable | + + + Support + + + + + | Name | Relationship | Address | Phone | + + + + + | Poncho Oquendo | ECON | [address] | | | | | [facility] [place] | | | | | [address] | | + + + + + | Marta Upton | ECON | [place], [place] | | | | | [address] | | + + + + + Care Team Providers + +------+ + | Care Ese Teacher Name | Role | Phone | [...] | PET CT Skull | [place], | [address] | | | | | [place] | [place] [address] | Phone: | | | | | Thigh | | [phone] | | | | | | | Fax: | | | | | | | [phone] | +--------+--------+ + + + + Reason [...] | | Procedures | [address] | [place], [place] | | | | | PET CT Skull | [place], | [address] | | | | | [place] | [place] [address] | Phone: | | | | | Thigh | | [phone] | | | | | | | Fax: | | | | | | | [phone] | +--------+--------+ + + + + Encounter Details +--------+ + + + + | Date | Type | Department | Care Team | Description | +--------+ + + + + | 02/15/ | Hospital | [facility] | Reinaldo, | 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 | Epifanoi Soler MD [address] | passages ([facility]) | | | | MEDICINE [address] | [address] | | | | | [address] | [place] [address] | | | | | [place], [place] | [phone] | | | | | [address] | | | | | | [phone] | | | +--------+ + + + [...] [address] | | | | | | [place] [address] | | | | | | [phone] | | | | | | | [...] | | | Signed by: Maycol Urias, Needishpender Sign Date/Time: 02/15/2019 | | | 1:37 [...] Testing | 65 - 99 mg/dL | [facility] | | | POC | performed at [facility];8 | | LABORATORY | | | | [facility];[place], [place] | | | | | | [address] | | | | + + + + + + + + | Specimen | + + | | + + + + + + + | Performing | Address | City/State/Zipcode | Phone Number | | Organization | | | | + + + + + | [facility] | [address] | [place] [address] | [phone] | + + + + + documented [...] millicur | | | | Intravenous, ONCE, [facility] 02/15/19 at | | PM PST | ies | | | | 1315, For 1 dose | | | | | | + +--------+ + +------+------+ +---+---+ | | | +---+---+ documented in this encounter"
--- OUTSIDE RECORDS SUMMARY | ~2019-06-13 | XMS | Encounter Summary ---
Demographics + + + | Address | [address] | | | [place] [address] | + + + | Home Phone [...] [facility] | | | and Eduardoana | + + + | Organization | [facility] | | | and Eduardoana | + + + | Address | Unknown | + + + | Phone | Unavailable | + + + Support + + + + + | Name | Relationship | Address | Phone | + + + + + | Poncho Oquendo | ECON | [address] | | | | | [place] | | | | | [address] | | + + + + + | Marta Upton | ECON | [place] | | | | | [address] | | + + + + + Care Team Providers + +------+ + | Care Emanations Analysis Technician Name | Role | Phone | [...] [place] | | | | | [address] [place] | [place] [address] | | | | | [place] [address] | [phone] | | | | | [phone] | | | +--------+ + + + [...] | | | | | [place] [address] | | | | | | [phone] | | | | | | | | +--------+---------+ + + + documented as of this encounter Visit Diagnoses Not on filedocumented in this encounter"
--- OUTSIDE RECORDS SUMMARY | ~2019-06-13 | XMS | Encounter Summary ---
Demographics + + + | Address | [address] | | | [place] [address] | + + + | Home Phone [...] Team Providers + +------+ + | Care Farm Mechanic Name | Role | Phone | [...] & | Diagnoses | Non-[facility] | [facility] Onc | | | | Gynecology | Complex | Epic Dept | [address] | | | | | Cystic Mass, | | [address] | | | | | elevated | | [place] | | | | | [address] per | | Alexis, 7th | | | | | appt notes | | floor | | | | | | | [place], [place] | | | | | | | [address] | | | | | | | Phone: | | | | | | | [phone] | | | | | | | Fax: | | | | | | | [phone] | +--------+--------+ + + + + Encounter Details +--------+---------+ + + + | Date | Type | Department | Care Team | Description | +--------+---------+ + + + | 06/18/ | [facility] | Miguel Seymour, | 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 | [facility] | [address] | (HCC) (Primary Dx) | | | | Alexis [address] | [facility] | | | | | [address] | [place], [place] | | | | | Alexis, [facility] floor | [address] | | | | | [place], [place] | [phone] | | | | | [address] | | | | | | [phone] | | | +--------+---------+ + + + [...] RN - 06/18/2014 10:51 AM PDTPlease call [facility] scheduling to set up a post op follow up in 5-6 weeks for a pelvic exam. [phone], ok to coordinat e with an apt with or Romy (ok if it is longer than 6 weeks) if you like. documented in this encounter Progress Notes Pavithra Aviles MD - 06/18/2014 10:34 AM PDTFormatting of this note might be different fro m the original. FIRE PATROL ONCOLOGY CONSULTATION Aura Upton 06/18/2014 PCP: SANDY [...] History Narrative Pt has SO. Lives in [facility]. 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 Likes to camp, entertain. REVIEW OF SYSTEMS: [...] sent to Cytology: - Please see corresponding K10-2013 B: Left ovary and fallopian tube, salpingo-oophorectomy: [...] excised lymph nodes from the gallbladder bed ([id number], s lides E3-4). Additionally, immunohistochemical staining on [...] Aviles MD Obstetrics and Gynecology, PGY1 Pager #[phone] I saw and evaluated the patient. I [...]
--- OUTSIDE RECORDS SUMMARY | ~2019-06-13 | XMS | Encounter Summary ---
Demographics + + + | Address | [address] | | | [place] [address] | + + + | Home Phone [...] + | Author | [facility] | | | and Eduardoana | + + + | Organization | [facility] | | | and Eduardoana | + + + | Address | Unknown | + + + | Phone | Unavailable | + + + Support + + + + + | Name | Relationship | Address | Phone | + + + + + | Poncho Oquendo | ECON | [address] | | | | | [place] | | | | | [address] | | + + + + + | Marta Upton | ECON | [place] | | | | | [address] | | + + + + + Care Team Providers + +------+ + | Care Ride Mechanic Name | Role | Phone | [...] | | Carcinoma | Reinaldo, | [address] | | | | | of gall | Epifanio C, | [place], | | | | | bladder | MD [address] | [place] [address] | | | | | (HCC) | [address] | Phone: | | | | | Procedures | [place], | [phone] | | | | | CT Chest | [place] [address] | Fax: | | | | | Abdomen | Phone: | [phone] | | | | | Pelvis w | [phone] | | | | | | Contrast | Fax: | | | | | | | [phone] | | +--------+--------+ + + + + [...] | | Carcinoma | Reinaldo, | [address] | | | | | of gall | Epifanio C, | [place], | | | | | bladder | MD [address] | [place] [address] | | | | | (HCC) | [address] | Phone: | | | | | Procedures | [place], | [phone] | | | | | CT Chest | [place] [address] | Fax: | | | | | Abdomen | Phone: | [phone] | | | | | Pelvis w | [phone] | | | | | | Contrast | Fax: | | | | | | | [phone] | | +--------+--------+ + + + + Encounter Details +--------+ + + + + | Date | Type | Department | Care Team | Description | +--------+ + + + + | 12/17/ | Hospital | [facility] | Reinaldo, | Carcinoma of gall | | 2015 | Encounter | MED CTR CT [address] | Epifanio Soler MD [address] | bladder (HCC) | | | | [place], | [address] [place] | | | | | [place] [address] | [place] [address] | | | | | [phone] | [phone] | | | | | | | [...] [address] | | | | | | [place] [address] | | | | | | [phone] | | | | | | | [...] intravenous administration of 100 mL | | [id number] contrast. Oral contrast was administered. Multiplanar reformatted [...]
--- OUTSIDE RECORDS SUMMARY | ~2019-06-13 | XMS | Encounter Summary ---
Demographics + + + | Address | [address] | | | [place] [address] | + + + | Home Phone [...] + | Author | [facility] | | | and Eduardoana | + + + | Organization | [facility] | | | and Eduardoana | + + + | Address | Unknown | + + + | Phone | Unavailable | + + + Support + + + + + | Name | Relationship | Address | Phone | + + + + + | Poncho Oquendo | ECON | [address] | | | | | [facility] [place] | | | | | [address] | | + + + + + | Marta Upton | ECON | [place], [place] | | | | | [address] | | + + + + + Care Team Providers + +------+ + | Care Industrial Hygienist Name | Role | Phone | + +------+ + PCP | Unavailable | + +------+ + Encounter Details +--------+ + + + + | Date | Type | Department | Care Team | Description | +--------+ + + + + | 01/15/ | Hospital | [facility] | | | | 2012 | Encounter | MED CTR XRAY [address] | | | | | | [place] | | | | | | [place] [address] | | | | | | [phone] | | | +--------+ + + + [...] [address] | | | | | | [place] [address] | | | | | | [phone] | | | | | | | [...] [facility] | THAYER | | Department [address] | [facility] | | [ rep ct [address]] [ rep ct [facility] | | zip] Signed | - IMAGING | | | | | Patient Name: JENELLEAURA HANSON Physician: | | | LIZBETH. : 1960 Age: 52 Sex: F Unit #: [id number] | | | Exam Date: 01/15/13 [facility] [facility] | | | Report #: [id number] Page: | | | %(RAD)RES..mtdd.print.filter("pg") of %(RAD) | | | RES..mtdd.print.filter("tpg") | | | | | | Accession Number: [id number] | | | CHEST, ABDOMEN, PELVIS CT [...] Transcribed | | | Date/Time: 01/15/2013 13:23 Charge Poster: | | | <<Signature on File>> | | | Mathieu Blas | | Emir Brasher MD01/15/132 <Electronically signed by Mathieu Brasher MD> Mathieu Brasher MD 01/15/13 1140 | | | Charge Poster: NOLA J&B Ytzhzjsrsryvp42/02/13 1323 | | | Epifanio Najera MD | | + + + + + + + + | Performing | Address | City/State/Zipcode | Phone Number | | Organization | | | | + + + + + | [address] | [address] | [place] | [phone] | | [facility] | | [address] | | | - IMAGING | | | | + + + + + documented in this encounter Visit Diagnoses Not on filedocumented in this encounter
--- OUTSIDE RECORDS SUMMARY | ~2019-06-13 | XMS | Encounter Summary ---
Demographics + + + | Address | [address] | | | [place] [address] | + + + | Home Phone [...] Providers + +------+ + | Care Die Sizer Name | Role | Phone | [...] | | | Reconstructive | Velma [place], | Septal Defect | | | | Services at [facility] | [place] [address] | | | | | [address] | [phone] | | | | | Mailcode: CH5E | | | | | | [facility] | | | | | | and Healing, | | | | | | [address], | | | | | | [place], [place] | | | | | | [address] | | | | | | [phone] | | | +--------+---------+ + + + [...] Surgery Dept. of Otolaryngology/Head and Neck Surgery [employer] [email or web address] documented in this encounte [...]
--- OUTSIDE RECORDS SUMMARY | ~2019-06-13 | XMS | Encounter Summary ---
Demographics + + + | Address | [address] | | | [place] [address] | + + + | Home Phone [...] Team Providers + +------+ + | Care Agricultural Systems Specialist Name | Role | Phone | + +------+ + | Tomasa Wagner | PCP | | + +------+ + Encounter Details +--------+ + + + + | Date | Type | Department | Care Team | Description | +--------+ + + + + | 06/20/ | MyChart | [facility] | Miguel Seymour, | RE: Do I need to | | 2014 | Encounter | [facility] | [address] | continue the Lovenox | | | | Alexis [address] | [address] | injections? | | | | [address] | [place], [place] | | | | | Alexis, [facility] floor | [address] | | | | | [place], [place] | [phone] | | | | | [address] | | | | | | [phone] | | | +--------+ + + + [...]
--- OUTSIDE RECORDS SUMMARY | ~2019-06-13 | XMS | Encounter Summary ---
Demographics + + + | Address | [address] | | | [place] [address] | + + + | Home Phone [...] | [facility] | | | and Eduardoana | + + + | Organization | [facility] | | | and Eduardoana | + + + | Address | Unknown | + + + | Phone | Unavailable | + + + Support + + + + + | Name | Relationship | Address | Phone | + + + + + | Poncho Oquendo | ECON | [address] | | | | | [place] | | | | | [address] | | + + + + + | Marta Upton | ECON | [place] | | | | | [address] | | + + + + + Care Team Providers + +------+ + | Care Oilfield Plant And Field Operator Name | Role | Phone | [...] | Procedures | [address] | [place] [address] | | | | | MA OFFICE | [place], | Phone: | | | | | OUTPATIENT | [place] [address] | [phone] | | | | | VISIT 25 | | Fax: | | | | | MINUTES | | [phone] | +--------+--------+ + + + + Encounter Details +--------+ + + + + | Date | Type | Department | Care Team | Description | +--------+ + + + + | 11/22/ | Hospital | [facility] | Vladimir Robles, | Cholangiocarcinoma | | 2015 | Encounter | MED CTR MEDICAL | MD Mondr[address] W ASHANTI | (HCC) (Primary Dx); | | | | ONCOLOGY CLINIC [address], | Pancytopenia due to | | | | [address] [place] | [place] [address] | antineoplastic | | | | [place] [address] | [phone] | chemotherapy (HCC) | | | | [phone] | | | +--------+ + + + [...] fr om the original. Hematology/Oncology Progress Note [facility] Pt. Name/Age/: Aura Upton 54 y.o. 1960 Med. Record Number: [id number] Date of admission: 11/22/2014 Identifying Statement: Aura Upton is a 54 y.o. female from [address] [place] [address] with Recurrent Cholangiocarcinoma. The patient chart and medications were reviewed in detail and the patient was seen and exam ined. History of Present Illnesses, their Current Assessments and Plans: Gallbladder cancer, carcinoma Overview ACTIVE DIAGNOSES: Recurrent cholangiocarcinoma. 1. Presentation with biliary colic in March of 2012; status post cholecystectomy and hailee er biopsy by Dr. Brandon Garcia March 29, 2012, pathological specimen [id number], analyzed by Dr. Bowers of [facility] and was notable for a poorly-differentiated adenoc arcinoma of the gallbladder. Liver biopsy demonstrated mild portal inflammation. 2. On April 28, 2012, she successfully underwent an R0 resection by Dr. Tai Stanton at [facility], pathological specimen [id number] was notable for the absence of any residual carcinoma within the gallbladder bed. However, 2/8 regional lym ph nodes contained regionally metastatic disease. 3. Consultation by Dr. Elva Grey of the [facility] on May returned the recommendation for adjuvant chemoradiation therapy following [id number] as follows: Capecitabine at 750 mg/m sq [...] staging by Dr. Oziel Casillas of the [facility]. Pathological a nalysis was notable for [...] 7. Consultation with Dr. Elva Grey the [facility] in June 26 015 who recommended additional chemotherapy was cisplatin at 75 mg meter squared on day 1 an d gemcitabine 1250 mg per meter squared on day one and day 8 of acute 21 day cycle for 6-8 c ycles. A second opinion was obtained by Dr. Richie Thayer of the [facility] who returned the recommendation for [...] the recommendations of [facility]. Richie [facility]of the [facility] with gemcitabine at 1000 mg per meter squared on day one and day 8 wi th cisplatin 25 mg meter squared on day one and day 8 of a Q 21 day cycle beginning on July 26, 2014 complicated by grade 3 neutropenia and grade [address]. [address] scan of the chest, abdomen and pelvis that [facility] on September 16, 2014 demonstrated no [...] day 8 may preclude safe treatment at alisah t time. Plan: 1. Proceed with day 1 cis-cantwell and gemcitabine as outlined above. 2. Neutropenic [...] has been changed since signin Order [facility] [place] amitriptyline (ELAVIL) 10 mg tablet (Taking) Take 10 mg by mouth nightly. Number of times this order has been changed since signin Order [facility] dexamethasone (DECADRON) 4 mg tablet (Taking) Take one tablet PO as directed. Number of times this order has been changed since signin Order [facility] [place] docusate calcium (SURFAK) 240 mg capsule (Taking) Take 240 mg by mouth as needed. Number of times this order has been changed since signin Order [facility] fish oil 1,000 mg capsule (Taking) Take 1,000 mg by mouth Daily. Number of times this order has been changed since signin Order [facility] HYDROcodone-acetaminophen (VICODIN) 5-500 mg per tablet (Taking) Take 1 tablet by mouth e very 4 hours as needed. Number of times this order has been changed since signin Order [facility] MULTIPLE VITAMIN PO (Taking) Take by mouth Daily. Number of times this order has been changed since signin Order [facility] ondansetron (ZOFRAN ODT) 8 mg disintegrating tablet (Taking) Take 8 mg by mouth every 8 h ours as needed for Nausea. Number of times this order has been changed since signin Order [facility] Probiotic Product (PROBIOTIC DAILY PO) (Taking) Take by mouth Daily. Number of times this order has been changed since signin Order [facility] Allergy: Allergies Allergen Reactions Sulfa Antibiotics Rash [...] this chart may have been created with XIFIN voice recognition software. Occasi onal wrong-word or [...] [address] | | | | | | [place] [address] | | | | | | [phone] | | | | | | | [...]
--- OUTSIDE RECORDS SUMMARY | ~2019-06-13 | XMS | Encounter Summary ---
Demographics + + + | Address | [address] | | | [place] [address] | + + + | Home Phone [...] | Author | [facility] | | | and Eduardoana | + + + | Organization | [facility] | | | and Eduardoana | + + + | Address | Unknown | + + + | Phone | Unavailable | + + + Support + + + + + | Name | Relationship | Address | Phone | + + + + + | Poncho Oquendo | ECON | [address] | | | | | [place] | | | | | [address] | | + + + + + | Marta Upton | ECON | [place] | | | | | [address] | | + + + + + Care Team Providers + +------+ + | Care B2B Appointment Setter Name | Role | Phone | [...] [facility] | | | | | [place] OFFICE | [address] | [place] | | | | | OUTPATIENT | Phone: | [phone] Phone: | | | | | VISIT 25 | [phone] | [phone] | | | | | MINUTES | Fax: | Fax: | | | | | | [phone] | [phone] | +--------+--------+ + + + + Encounter Details +--------+ + + + + | Date | Type | Department | Care Team | Description | +--------+ + + + + | 09/16/ | Hospital | [facility] | Reinaldo, | Gallbladder cancer, | | 2015 | Encounter | [facility] | Chad Soler MD [address] | carcinoma (HCC) | | | | ON[facility]OGY CLINIC [address] | (Primary Dx) | | | | [address] | [place] [address] | | | | | [place] [address] | [phone] | | | | | [phone] | | | +--------+ + + + [...] nt from the original. Hematology/Oncology Progress Note [facility] Pt. Name/Age/: Aura Upton 53 y.o. 1960 Med. Record Number: [id number] Date of admission: 09/16/2014 Identifying Statement: Aura Upton is a 53 y.o. female from [address] [place] [id number] with Recurrent Cholangiocarcinoma. The patient chart and [...] Brandon Garcia March 29, 2012, pathological specimen [id number], analyzed by Dr. Bowers of [facility] and was notable for a poorly-differentiated adenoc arcinoma of the gallbladder. Liver biopsy demonstrated mild portal inflammation. 2. On April 28, 2012, she successfully underwent an R0 resection by Dr. Tai Stanton at [facility], pathological specimen [id number] was notable for the absence of any residual carcinoma within the gallbladder bed. However, 2/8 regional lym ph nodes contained regionally metastatic disease. 3. Consultation by Dr. Elva Grey of the [facility] on May returned the recommendation for adjuvant chemoradiation therapy following [id number] as follows: Capecitabine at 750 mg/m sq [...] pelvic and periaortic lymphadenectomy, omentectomy and surgi gaob staging by Dr. Oziel Casillas of the [facility]. Pathological analysis was notable for 9.5 [...] 7. Consultation with Dr. Elva Grey the [facility] in June 26, 2014 who recommended additional chemotherapy was cisplatin at 75 mg meter squared on day 1 a nd gemcitabine 1250 mg per meter squared on day one and day 8 of acute 21 day cycle for 6-8 cycles. A second opinion was obtained by Dr. Richie Thayer of the [facility] who returned the recommendation for [...] the recommendations of [facility]of [facility] with gemcitabine at 1000 mg per meter squared on day one and day 8 wi th cisplatin 25 mg meter squared on day one and day 8 of a Q 21 day cycle beginning on July 26, 2014 complicated by grade 3 neutropenia and grade [address]ocyt[address]. [address] scan of the chest, abdomen and pelvis that [facility] on September 16, 2014 demonstrated no [...] will return to see me at the [facility] in [place], [place] on September 20, 2014 for clinical [...] has been changed since signin Order [facility] dexamethasone (DECADRON) 4 mg tablet (Taking) Take one tablet PO as directed. Number of times this order has been changed since signin Order [facility] docusate calcium (SURFAK) 240 mg capsule (Taking) Take 240 mg by mouth as needed. Number of times this order has been changed since signin Order [facility] fish oil 1,000 mg capsule (Taking) Take 1,000 mg by mouth Daily. Number of times this order has been changed since signin Order [facility] HYDROcodone-acetaminophen (VICODIN) 5-500 mg per tablet (Taking) Take 1 tablet by mouth e very 4 hours as needed. Number of times this order has been changed since signin Order [facility] MULTIPLE VITAMIN PO (Taking) Take by mouth Daily. Number of times this order has been changed since signin Order [facility] Probiotic Product (PROBIOTIC DAILY PO) (Taking) Take by mouth Daily. Number of times this order has been changed since signin Order [facility] Allergy: Allergies Allergen Reactions Sulfa Antibiotics Objectives: [...] this chart may have been created with [employer]ingo[employer] voice recognition software. Occasi onal wrong-word or [...] Visit | | DO [address] [facility] | | | | | | [place] [address] | | | | | | [phone] | | | | | | | | +--------+---------+ + + + documented as of this encounter Visit Diagnoses + + | Diagnosis | + + | Gallbladder cancer, 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
--- OUTSIDE RECORDS SUMMARY | ~2019-06-13 | XMS | Encounter Summary ---
Demographics + + + | Address | [address] | | | [place] [address] | + + + | Home Phone [...] | Author | [facility] | | | and Eduardoana | + + + | Organization | [facility] | | | and Eduardoana | + + + | Address | Unknown | + + + | Phone | Unavailable | + + + Support + + + + + | Name | Relationship | Address | Phone | + + + + + | Poncho Oquendo | ECON | [address] | | | | | [place] | | | | | [address] | | + + + + + | Marta Upton | ECON | [address] | | | | | [address] | | + + + + + Care Team Providers + +------+ + | Care Student Officer Name | Role | Phone | + +------+ + | Valeriy Carmona DO | PCP | | + +------+ + Encounter Details +--------+ + + + + | Date | Type | Department | Care Team | Description | +--------+ + + + + | 07/01/ | Abstract | [facility] | Nelda Fuchs, | | | 2014 | | MED CTR PHARMACY | [facility] [address] | | | | | [address] | [place], [place] | | | | | [place] [address] | [address] | | | | | [phone] | | | +--------+ + + + [...] as of this encounter Progress Nelda Pimentel [facility] - 07/01/2014 1:37 PM PDTFormatting of this note might be different fro m the original. IDT PATIENT MEDICATION/PROFILE REVIEW [facility] [...] 12 kg/m2, Est CrCl = 110 ml/min (Schrader-Worland Equation) Allergies : Sulfa antibiotics Diagnosis: Stage [...] 2019 | Visit | | DO [address] [facility] | | | | | | [place] [address] | | | | | | [phone] | | | | | | | | +--------+---------+ + + + documented as of this encounter Visit Diagnoses Not on filedocumented in this encounter
--- OUTSIDE RECORDS SUMMARY | ~2019-06-13 | XMS | Encounter Summary ---
Demographics + + + | Address | [address] | | | [place] [address] | + + + | Home Phone [...] Team Providers + +------+ + | Care Applications Specialist Name | Role | Phone | [...] | | | | | | [place] | | | | | | [address] | | | +--------+ + + + [...] + + documented in this encounter Results [facility] SOLID TUMOR PANEL (03/23/2016) + + + + + + | Component | Value | Ref Range | Performed | Pathologist | | | | | At | Signature | + + + + + + | [facility] | [facility] | | [facility]EN[facility] | [...] | | | | | | NTRK1 [id number] | | | | | | CDKN2A FGF18 | | | | | | KRAS NTRK2 | | | | | | [id number] CHEK1 | | | | | | FGF19 MAP2K1 | | | | | | NTRK3 FAA19BHEY | | | | | | CHEK2 FGF3 | | | | | | MAP2K2 PALB2 | | | | | | NRA3UJR CTNNB1 | | | | | | FGF4 MAP2K4 | | | | | | DDIQ3FG5 YRXI1CI | | | | | | DDR2 FGFR1 MAPK1 | | | | | | PDGFRA | | | | | | ER3HBJW DDX11 | | | | | | FGFR2 MDC1 PIK3CA | | | | | | GRLPWZE6K EGFR | | | | | | FGFR3 MDM2 PIK3CB | | | | | | RICTORATM ERBB2 | | | | | | FGFR4 MDM4 | | | | | | PIK3R1 ZSC6UWQ | | | | | | ERBB3 GNA11 | | | | | | MET PMS1 DPP0MBD5 | | | | | | ERBB4 GNAQ MLH1 | | | | | | PMS2 RPTORBARD1 | | | | | | ERCC2 GNAS MLH3 | | | | | | POLE QCEU6KRIB ERCC5 | | | | | | TSTQ0B7C MRE11A | | | | | | OQL2S0O DDFP2ZFYQ6 | | | | | | ESR1 HRAS MSH2 | | | | | | PPP6C [id number] | | | | | | [id number] IDH1 | | | | | | MSH6 PTCH1 | | | | | | [id number] FANCA | | | | | | IDH2 MTOR PTEN | | | | | | [id number] FANCC | | | | | | IDO1 MUTYH | | | | | | RAC1 [id number] | | | | | | FANCD2 IDO2 MYC | | | | | | RAD50 FWC1NCDW1 | | | | | | FANCE INPP4B | | | | | | NBN RAD51 | | | | | | [id number] FANCF | | | | | | JAK2 NF1 | | | | | | [id number] | | | | | | FANCG [...] | | | | | | MSH2 SGGV9455.1 | | | | | | c.980C>T hg19 chr2 | | | | | | [id number] C | | | | | | TTP53 [id number] | | | | | | c.743G>A hg19 chr17 | | | | | | [id number] | | | | | | C [...] # | | | | | | [id number]. It has not | | | | [...] | | | | | determined bythe [facility] | | | | | | [facility] [...] | | | | | | [facility] | | | | | | DiagnosticsLaboratories | | | | | | are fully licensed by | | | | | | the state of [place] | | | | | | under CLIA and | | | | | | areaccredited by [place] | | | | | | of [place] | | | | | | Pathologists [...] + + + + | [facility] | [address] | [place] [address] | | | DIAGNOSTIC | [address] | | | | LABORATORIES | | | | + + + + + documented in this encounter Visit Diagnoses Not on filedocumented in this encounter"
--- OUTSIDE RECORDS SUMMARY | ~2019-06-13 | XMS | Encounter Summary ---
Demographics + + + | Address | [address] | | | [place] [address] | + + + | Home Phone [...] | [facility] | | | and Eduardoana | + + + | Organization | [facility] | | | and Eduardoana | + + + | Address | Unknown | + + + | Phone | Unavailable | + + + Support + + + + + | Name | Relationship | Address | Phone | + + + + + | Poncho Oquendo | ECON | [address] | | | | | [facility] [place] | | | | | [address] | | + + + + + | Marta Upton | ECON | [place], [place] | | | | | [address] | | + + + + + Care Team Providers + +------+ + | Care Electrical Maintenance Man Name | Role | Phone | + +------+ + PCP | Unavailable | + +------+ + Encounter Details +--------+ + + + + | Date | Type | Department | Care Team | Description | +--------+ + + + + | 09/01/ | Hospital | [facility] | | | | 2012 - | Encounter | MED CTR XRAY [address] | | | | | [address] | | | | 09/13/ | | [place] [address] | | | | 2012 | | [phone] | | | +--------+ + + + [...] [address] | | | | | | [place] [address] | | | | | | [phone] | | | | | | | | +--------+---------+ + + + documented as of this encounter Procedures + +--------+ + + + | Procedure Name | Priori | Date/Time | Associated Diagnosis | Comments | | | ty | | | | + +--------+ + + + | CA 19-9, QUANT | Routin | 08/24/2012 | | Results for this | | | e | 2:33 PM | | procedure are in the | | | | PDT | | results section. | + +--------+ + + + | CBC WITH | Routin | 08/24/2012 | | Results for this | | DIFFERENTIAL | e | 2:33 PM | | procedure are in the | | | | PDT | | results section. | + +--------+ + + + | LACTATE | Routin | 08/24/2012 | | Results for this | | DEHYDROGENASE | e | 2:33 PM | | procedure are in the | | | | PDT | | results section. | + +--------+ + + + | COMPREHENSIVE | Routin | 08/24/2012 | | Results for this | | METABOLIC PANEL | e | 2:33 PM | | procedure are in the | | | | PDT | | results section. | + +--------+ + + + | CA 19-9, QUANT | Routin | 08/15/2012 | | Results for this | | | e | 7:43 AM | | procedure are in the | | | | PDT | | results section. | + +--------+ + + + | CBC WITH | Routin | 08/15/2012 | | Results for this | | DIFFERENTIAL | e | 7:43 AM | | procedure are in the | | | | PDT | | results section. | + +--------+ + + + | LACTATE | Routin | 08/15/2012 | | Results for this | | DEHYDROGENASE | e | 7:43 AM | | procedure are in the | | | | PDT | | results section. | + +--------+ + + + | COMPREHENSIVE | Routin | 08/15/2012 | | Results for this | | METABOLIC PANEL | e | 7:43 AM | | procedure are in the | | | | PDT | | results section. | + +--------+ + + + documented in this encounter Results CBC with Differential (08/24/2012 2:33 PM PDT) + + + + + [...] + + + + | WBC | 5.8 | 4.0 - 11.0 K/uL | [facility] | | | | | | [facility] | | | | | | MEDICAL | | | | | | CENTER - | | | | | | LABORATORY | | + + + + + + | RBC | 3.98 | 3.70 - 5.20 | [facility] | | | | | M/uL | [facility] | | | | | | MEDICAL | | | | | | CENTER - | | | | | | LABORATORY | | + + + + + + | Hemoglobin | 12.4 | 11.5 - 16.0 | [facility] | | | | | gm/dL | [facility] | | | | | | MEDICAL | | | | | | CENTER - | | | | | | LABORATORY | | + + + + + + | Hematocrit | 38.5 | 34.0 - 47.0 % | [facility] | | | | | | [facility] | | | | | | MEDICAL | | | | | | CENTER - | | | | | | LABORATORY | | + + + + + + | MCV | 96.8 | 83.0 - 101.0 fL | [facility] | | | | | | [facility] | | | | | | MEDICAL | | | | | | CENTER - | | | | | | LABORATORY | | + + + + + + | MCH | 31.1 | 28.0 - 35.0 pg | [facility] | | | | | | [facility] | | | | | | MEDICAL | | | | | | CENTER - | | | | | | LABORATORY | | + + + + + + | MCHC | 32.1 | 32.0 - 36.0 | [facility] | | | | | g/dL | [facility] | | | | | | MEDICAL | | | | | | CENTER - | | | | | | LABORATORY | | + + + + + + | RDW-CV | 25.4 (H)Comment: VALUE | <15.0 % | [facility] | | | | CONSISTENT WITH PREVIOUS | | [facility] | | | | RESULTS | | MEDICAL | | | | | | CENTER - | | | | | | LABORATORY | | + + + + + + | Platelet | 238 | 140 - 440 K/uL | [facility] | | | Count | | | [facility] | | | | | | MEDICAL | | | | | | CENTER - | | | | | | LABORATORY | | + + + + + + | % | 42.2 (L) | 45 - 75 % | [facility] | | | Neutrophils | | | [facility] | | | | | | MEDICAL | | | | | | CENTER - | | | | | | LABORATORY | | + + + + + + | % | 39.7 | 20 - 45 % | [facility] | | | Lymphocytes | | | [facility] | | | | | | MEDICAL | | | | | | CENTER - | | | | | | LABORATORY | | + + + + + + | % Monocytes | 14.6 (H) | 4 - 12 % | [...] + + + + | Absolute | 2.3 | 0.6 - 3.2 K/uL | [facility] | | | Lymphocytes | | | [facility] | | | | | | MEDICAL | | | | | | CENTER - | | | | | | LABORATORY | | + + + + + + | Absolute | 0.8 | 0.0 - 1.0 K/uL | [facility] [...] | PROBLEM IS: | SMEAR REVIEW FOR MCV/RDW | | [facility] | | | | [facility] | | MEDICAL | | | |Dimorphic Reds | | CENTER - | | | | | | LABORATORY | | + + + + + + + + | Specimen | + + | | + + + + + + + | Performing | Address | City/State/Zipcode | Phone Number | | Organization | | | | + + + + + | [facility] | [address] | [place], [place] | [phone] | | [facility] | | [address] | | | - LABORATORY | | | | + + + + + | [facility] | [address] | [place], [place] | | | [facility] | | [address], [facility] | | | - LABORATORY | | | | + + + + + CA 19-9, Quant (08/24/2012 2:33 PM PDT) + + + + + + | Component | Value | Ref Range | Performed | Pathologist | | | | | At | Signature | + + + + + + | CA 19 9 | 12Comment: The Siemens | 0 - 37 U/mL | [facility] | | | | (formerly [facility] | | [facility] | | | | Centaur [...] | | | | [address], [place], [place] | | | | | | [address] CLIA: | | | | | | [id number] | | | | + + + + + + + + | Specimen | + + | | + + + + + + + | Performing | Address | City/State/Zipcode | Phone Number | | Organization | | | | + + + + + | [facility] | [address] | [place] | [phone] | | [facility] | | [address] | | | - LABORATORY | | | | + + + + + | [facility] | [address] | [place], [place] | | | [facility] | | [address] | | | - LABORATORY | | | | + + + + + Comprehensive Metabolic Panel (08/24/2012 2:33 PM PDT) + + + + + + | Component | Value | Ref Range | Performed | Pathologist | | | | | At | Signature | + + + + + + | Glucose | 86 | 70 - 109 mg/dL | [facility] [...] AST | 33 | 10 - 42 IU/L | [facility] [...] [facility] | | | | | [facility] | | | | | | MEDICAL | | | | | | CENTER - | | | | | | LABORATORY | | + + + + + + | BUN | 7 | 7 - 18 mg/dL | [facility] [...] + + + + | BUN/Creatin | 9.1 (L) | 12 - 20 | [facility] [...] + + + | Anion Gap | 12.7 | 6.0 - 17.0 | [facility] | [...] + | [facility] | [address] | [place], [place] | [phone] | | [facility] | | [address] | | | - LABORATORY | | | | + + + + + | [facility] | [address] | [place] | | | [facility] | | [id number] [place] [address] | | | - LABORATORY | | | | + + + + + Lactate Dehydrogenase (08/24/2012 2:33 PM PDT) + +---------+ + + + | Component | Value | Ref Range | Performed | Pathologist | | | | | At | Signature | + +---------+ + + + | LDH TOTAL | 205 (H) | 91 - 180 IU/L | [...] [address] | [place] | [phone] | | [facility] | | [address] | | | - LABORATORY | | | | + + + + + | [facility] | [address] | [place] | | | [facility] | | [address] | | | - LABORATORY | | | | + + + + + CBC with Differential (08/15/2012 7:43 AM PDT) + + + + + + | Component | Value | Ref Range | Performed | Pathologist | | | | | At | Signature | + + + + + + | MANUAL | NO | | [facility] | | | [place] | | | [facility] | | | L ? | | | MEDICAL | | | | | | CENTER - | | | | | | LABORATORY | | + + + + + + | WBC | 5.8 | 4.0 - 11.0 K/uL | [facility] | | | | | | [facility] | | | | | | MEDICAL | | | | | | CENTER - | | | | | | LABORATORY | | + + + + + + | RBC | 4.20 | 3.70 - 5.20 | [facility] | [...] + + + + | MCV | 94.5 | 83.0 - 101.0 fL | [facility] | | | | | | [facility] | | | | | | MEDICAL | | | | | | CENTER - | | | | | | LABORATORY | | + + + + + + | MCH | 30.9 [...] + + + + | RDW-CV | 24.8 (H) | <15.0 % | [facility] | | | | | | [facility] | | | | | | MEDICAL | | | | | | CENTER - | | | | | | LABORATORY | | + + + + + + | Platelet | 198 | 140 - 440 K/uL | [facility] | | | Count | | | [facility] | | | | | | MEDICAL | | | | | | CENTER - | | | | | | LABORATORY | | + + + + + + | % | 54.5 | 45 - 75 % | [facility] | | | Neutrophils | | | [facility] | | | | | | MEDICAL | | | | | | CENTER - | | | | | | LABORATORY | | + + + + + + | % | 28.2 | 20 - 45 % | [facility] | | | Lymphocytes | | | [facility] | | | | | | MEDICAL | | | | | | CENTER - | | | | | | LABORATORY | | + + + + + + | % Monocytes | 12.6 (H) | 4 - 12 % | [facility] | | | | | | [facility] | | | | | | MEDICAL | | | | | | CENTER - | | | | | | LABORATORY | | + + + + + + | % | 4.3 | 0 - 5 % | [facility] | | | Eosinophils | | | [facility] | | | | | | MEDICAL | | | | | | CENTER - | | | | | | LABORATORY | | + + + + + + | % Basophils | 0.4 | 0 - 1 % | [facility] | | | | | | [facility] | | | | | | MEDICAL | | | | | | CENTER - | | | | | | LABORATORY | | + + + + + + | Absolute | 3.2 | 1.5 - 6.6 K/uL | [facility] | | | Neutrophils | | | [facility] | | | | | | MEDICAL | | | | | | CENTER - | | | | | | LABORATORY | | + + + + + + | Absolute | 1.6 | 0.6 - 3.2 K/uL | [facility] | | | Lymphocytes | | | [facility] | | | | | | MEDICAL | | | | | | CENTER - | | | | | | LABORATORY | | + + + + + + | Absolute | 0.7 | 0.0 - 1.0 K/uL | [facility] [...] + | [facility] | [address] | [place] | [phone] | | [facility] | | [address] | | | - LABORATORY | | | | + + + + + | [facility] | [address] | [place] | | | [facility] | | [address] | | | - LABORATORY | | | | + + + + + CA 19-9, Quant (08/15/2012 7:43 AM PDT) + + + + + + | Component | Value | Ref Range | Performed | Pathologist | | | | | At | Signature | + + + + + + | CA 19 9 | 11Comment: The Siemens | 0 - 37 U/mL | [facility] | | | | (formerly [facility] | | [facility] | | | | Centaur [...] | | | | [address], [place], [place] | | | | | | [address] CLIA: | | | | | | [id number] | | | | + + + + + + + + | Specimen | + + | | + + + + + + + | Performing | Address | City/State/Zipcode | Phone Number | | Organization | | | | + + + + + | [facility] | [address] | [place], [place] | [phone] | | [facility] | | [address] | | | - LABORATORY | | | | + + + + + | [facility] | [address] | [place] | | | [facility] | | [address] | | | - LABORATORY | | | | + + + + + Comprehensive Metabolic Panel (08/15/2012 7:43 AM PDT) + + + + + + | Component | Value | Ref Range | Performed | Pathologist | | | | | At | Signature | + + + + + + | Glucose | 104 | 70 - 109 mg/dL | [facility] [...] Albumin | 3.6 | 3.2 - 5.0 gm/dL | [facility] | | | | | | [facility] | | | | | | MEDICAL | | | | | | CENTER - | | | | | | LABORATORY | | + + + + + + | BUN | 5 (L) | 7 - 18 mg/dL | [...] + + + + | BUN/Creatin | 7.1 (L) | 12 - 20 | [facility] [...] + + + + | K | 4.1 | 3.5 - 5.1 mEq/l | [facility] | | | | | | [facility] | | | | | | MEDICAL | | | | | | CENTER - | | | | | | LABORATORY | | + + + + + + | Cl | 108 | 98 - 109 mEq/l | [facility] [...] + + + | Anion Gap | 9.1 | 6.0 - 17.0 | [facility] | [...] + | [facility] | [address] | [place], [place] | [phone] | | [facility] | | [address] | | | - LABORATORY | | | | + + + + + | [facility] | [address] | [place], [place] | | | [facility] | | [address], [facility] | | | - LABORATORY | | | | + + + + + Lactate Dehydrogenase (08/15/2012 7:43 AM PDT) + +---------+ + + + | Component | Value | Ref Range | Performed | Pathologist | | | | | At | Signature | + +---------+ + + + | LDH TOTAL | 216 (H) | 91 - 180 IU/L | [...] + | [facility] | [address] | [place] | [phone] | | [facility] | | [address] | | | - LABORATORY | | | | + + + + + | [facility] | [address] | [place] | | | [facility] | | [address] | | | - LABORATORY | | | | + + + + + documented in this encounter Visit Diagnoses Not on filedocumented in this encounter"
--- OUTSIDE RECORDS SUMMARY | ~2019-06-13 | XMS | Encounter Summary ---
Demographics + + + | Address | [address] | | | [place] [address] | + + + | Home Phone [...] | Author | [facility] | | | and Eduardoana | + + + | Organization | [facility] | | | and Eduardoana | + + + | Address | Unknown | + + + | Phone | Unavailable | + + + Support + + + + + | Name | Relationship | Address | Phone | + + + + + | Poncho Oquendo | ECON | [address] | | | | | [place] | | | | | [address] | | + + + + + | Marta Upton | ECON | [place] | | | | | [address] | | + + + + + Care Team Providers + +------+ + | Care Tractor Distributor Name | Role | Phone | + [...] | | | | | (HCC) | [place], [place] | [place], | | | | | Procedures | [address] | [place] [address] | | | | | ME OFFICE | Phone: | Phone: | | | | | OUTPATIENT | [phone] | [phone] | | | | | VISIT 25 | Fax: | Fax: | | | | | MINUTES | [phone] | [phone] | +--------+--------+ + + + + Encounter Details +--------+ + + + + | Date | Type | Department | Care Team | Description | +--------+ + + + + | 08/06/ | Hospital | [facility] | Vladimir Robles, | Gallbladder cancer, | | 2017 | Encounter | [facility] | [address] | carcinoma (HCC) | | | | ONCOLOGY CLINIC [address] [place] [address] | (Primary Dx) | | | | [address] | [place] [address] | | | | | [place] [address] | [phone] | | | | | [phone] | | | +--------+ + + + [...] f rom the original. Hematology-Oncology [facility] Pt. Name/Age/: Aura Upton 55 y.o. 1960 CSN: [id number] Date of service: 08/06/2016 Provider: Vladimir Robles MD HEMATOLOGY/ONCOLOGY PROBLEM LIST: Gallbladder cancer, carcinoma (HCC) 03/29/2012 Initial Diagnosis Gallbladder cancer, carcinoma (HCC) 04/26/2012 Surgery R0 resection 05/31/2012 - 09/03/2012 Chemotherapy Xeloda/gemcitabine x - 10/04/2012 Radiation therapy XRT with Xeloda [...] scheduled. 1. Day 8, cycle #6 of gemcitabine/cis-sac & [place]. 2. Neupogen, Ar[place] in [place]. 3. Follow-up scheduled with Dr. Najera on 08/18/16. Subjective: The patient chart and medications were reviewed in detail and the patient was seen and exam inechino. Aura Upton is a 55 y.o. female with [...] Last chemotherapy was a week ago at [facility]. My chart: active. Medications: Current Outpatient Prescriptions [...] this chart may have been created with [email or web address] voice recognition software. Occasi onal wrong-word or [...] 2019 | Visit | | DO [address] [address] | | | | | | [place] [address] | | | | | | [phone] | | | | | | | [...]
--- OUTSIDE RECORDS SUMMARY | ~2019-06-13 | XMS | Encounter Summary ---
Demographics + + + | Address | [address] | | | [place] [address] | + + + | Home Phone [...] | Author | [facility] | | | and Eduardoana | + + + | Organization | [facility] | | | and Eduardoana | + + + | Address | Unknown | + + + | Phone | Unavailable | + + + Support + + + + + | Name | Relationship | Address | Phone | + + + + + | Poncho Oquendo | ECON | [address] | | | | | [place] | | | | | [address] | | + + + + + | Marta Upton | ECON | [place] | | | | | [address] | | + + + + + Care Team Providers + +------+ + | Care Mop Handle Assembler Name | Role | Phone | [...] | | ONCOLOGY CLINIC [address] | [facility] | | | | | [address] [facility] | [place] [address] | | | | | [place] [address] | [phone] | | | | | [phone] | | | +--------+ + + + [...] | | | | | | [facility] [address] | | | | | | [phone] | | | | | | | | +--------+---------+ + + + documented as of this encounter Visit Diagnoses Not on filedocumented in this encounter"
--- OUTSIDE RECORDS SUMMARY | ~2019-06-13 | XMS | Encounter Summary ---
Demographics + + + | Address | [address] | | | [place] [address] | + + + | Home Phone [...] | [facility] | | | and Eduardoana | + + + | Organization | [facility] | | | and Eduardoana | + + + | Address | Unknown | + + + | Phone | Unavailable | + + + Support + + + + + | Name | Relationship | Address | Phone | + + + + + | Poncho Oquendo | ECON | [address] | | | | | [facility] [place] | | | | | [address] | | + + + + + | Marta Upton | ECON | [place], [place] | | | | | [address] | | + + + + + Care Team Providers + +------+ + | Care Supervisor Pit And Auxiliaries Name | Role | Phone | + +------+ + PCP | Unavailable | + +------+ + Encounter Details +--------+ + + + + | Date | Type | Department | Care Team | Description | +--------+ + + + + | 03/19/ | Hospital | [facility] | | | | 2013 | Encounter | [facility] | | | | | | CENTER [address] | | | | | | [place] | | | | | | [address] | | | | | | [phone] | | | +--------+ + + + [...] | | | | | [place] [address] | | | | | | [phone] | | | | | | | [...] + | [facility] | [address] | [place] | [phone] | | [facility] | | [address] | | | - LABORATORY | | | | + + + + + | [facility] | [address] | [place] | | | [facility] | | [address] | | | - LABORATORY | | [...] | [facility] | | | | [facility] | | MEDICAL | | | [...] + | [facility] | [address] | [place] | [phone] | | [facility] | | [address] | | | - LABORATORY | | | | + + + + + | [facility] | [address] | [place] | | | [facility] | | [address], [facility] | | | - [...] | | (formerly Mahad) Advia | | [facility] | | | | Centaur immunoassay | [...] | | | | [address], [place], [place] | | | | | | [address] CLIA: | | | | | | [id number] | | | | + + + + + + + + | Specimen | + + | | + + + + + + + | Performing | Address | City/State/Zipcode | Phone Number | | Organization | | | | + + + + + | [facility] | [address] | [place] | [phone] | | [facility] | | [address] | | | - LABORATORY | | | | + + + + + | [facility] | [address] | [place] | | | [facility] | | [address] | | | - LABORATORY | | [...] 11 | 7 - 18 mg/dL | [facility] | | | | | | [facility] | | | | | | MEDICAL | | | | | | CENTER - | | | | | | LABORATORY | | + + + + + + | Creatinine | 0.72 | 0.60 - 1.30 | [facility] | | | | | mg/dL | [facility] | | | | | | MEDICAL | | | | | | CENTER - | | | | | | LABORATORY | | + + + + + + | Estimated | >60Comment: For | >60 mL/min/A | [facility] | | | GFR | -Americans, [...] + | [facility] | [address] | [place], [place] | [phone] | | [facility] | | [address] | | | - LABORATORY | | | | + + + + + | [facility] | [address] | [place], [place] | | | [facility] | | [address] | | | - LABORATORY | | [...] + | [facility] | [address] | [place] | [phone] | | [facility] | | [address] | | | - LABORATORY | | | | + + + + + | [facility] | [address] | [place] | | | [facility] | | [address] | | | - LABORATORY | | | | + + + + + documented in this encounter Visit Diagnoses Not on filedocumented in this encounter"
--- OUTSIDE RECORDS SUMMARY | ~2019-06-13 | XMS | Encounter Summary ---
Demographics + + + | Address | [address] | | | [place] [address] | + + + | Home Phone [...] Providers + +------+ + | Care Medical Corps Officer Name | Role | Phone | [...] Surendra Carreon | Velma [facility] | | | | | Procedures | Rd | Hospital, | | | | | CT CHEST, | [place], [place] | 10th Floor | | | | | ABDOMEN & | [address] | [place], [place] | | | | | [address] | Phone: | [phone] | | | | | CONTRAST | [phone] | Phone: | | | | | [address], [address] | Fax: | [phone] | | | | | | [phone] | Fax: | | | | | | | [phone] | +--------+--------+ + + + + Reason [...] | | | | CT CHEST, | [place], [place] | 10th Floor | | | | | ABDOMEN & | | [place], [place] | | | | | [address] | Phone: | [phone] | | | | | CONTRAST | [phone] | Phone: | | | | | [address], [address] | Fax: | [phone] | | | | | | [phone] | Fax: | | | | | | | [phone] | +--------+--------+ + + + + Encounter Details +--------+ + + + + | Date | Type | Department | Care Team | Description | +--------+ + + + + | 04/12/ | Hospital | Radiology/Imaging | | | | 2012 | Encounter | Lab at [facility] [address] | | | | | | [facility] | | | | | | for Health and | | | | | | Healing, Building 1, | | | | | | 3rd Floor | | | | | | [place], [place] | | | | | | [address] | | | | | | [phone] | | | +--------+ + + + [...] / | | | | | | iMchael Gallo | | | | | | [...]
--- OUTSIDE RECORDS SUMMARY | ~2019-06-13 | XMS | Encounter Summary ---
Demographics + + + | Address | [address] | | | [place] [address] | + + + | Home Phone [...] Providers + +------+ + | Care Senior Storage Engineer Name | Role | Phone | + +------+ + | Tomasa Wagner | PCP | | + +------+ + Encounter Details +--------+ + + + + | Date | Type | Department | Care Team | Description | +--------+ + + + + | 06/28/ | Telephone | Digestive Health | Tai Stanton, | | | 2012 | | Center at [facility] [address] | [address] | | | | | [facility] | [facility] | | | | | for [facility] and | [place], [place] | | | | | [facility], [place] [address] | [address] | | | | | [place], [place] | [phone] | | | | | [address] | | | | | | [phone] | | | +--------+ + + + [...]
--- OUTSIDE RECORDS SUMMARY | ~2019-06-13 | XMS | Clinical Summary ---
Demographics + + + | Address | [address] | | | [place] [address] | + + + | Home Phone [...] Team Providers + +------+ + | Care Rerecording Mixer Name | Role | Phone | + +------+ + | Valeriy Carmona MD | PCP | | + +------+ + Source Comments GWEN is fully live on both EpicCare Ambulatory and EpicCare InPatient.[facility] Allergies + + + + + [...] Ragland at . | | Babak in [place]. -04/26/2012: R0 Resection. | | -05/31/2012-09/03/2012 Chemotherapy: [...] CROSS | | 16-Pre | 8 | [address] | | | | [place] | | sent | | [place], | | | | L | | | | [place] [address] | | + +--------+ +--------+ + +--------+ | [facility] | [facility] | xxxxxxxxx | 02/14/19 | | | [...] Person | Self | [birth year] | | [address] | | | al/Fam | | 1961 | [phone] | [place] | | | jose alejandro | | | 5 (Home) | [address] | + +--------+ +--------+ + + | Aura Upton | Agency | Self | [birth year] | | [address] | | | | | 1961 | [phone] | [place] | | | | | | 5 (Home) | [address] | + +--------+ +--------+ + + Advance Directives + + + + + | Type | Date Recorded | Patient | Explanation | | | | [facility] | | + + + + + | Advance | | | | | Directives and | | | | | Living Will | | | | + + + + + | Power of | | | | | Installation Superintendent | | | | + + + [...]
--- OUTSIDE RECORDS SUMMARY | ~2019-06-13 | XMS | Encounter Summary ---
Demographics + + + | Address | [address] | | | [place] [address] | + + + | Home Phone [...] Providers + +------+ + | Care Change Booth Attendant Name | Role | Phone | [...] | | 2012 | | Oncology at [facility] | [address] | | | | | [address] [facility] | [place] [address] | | | | | Mailcode: CH7M | [place] [address] | | | | | [facility] | [phone] | | | | | and Healing, | | | | | | [place] [address] | | | | | | [place], [place] | | | | | | [address] | | | | | | [phone] | | | +--------+ + + + [...]
--- OUTSIDE RECORDS SUMMARY | ~2019-06-13 | XMS | Encounter Summary ---
Demographics + + + | Address | [address] | | | [place] [address] | + + + | Home Phone [...] Author | [facility] | | | and Eduardoana | + + + | Organization | [facility] | | | and Eduardoana | + + + | Address | Unknown | + + + | Phone | Unavailable | + + + Support + + + + + | Name | Relationship | Address | Phone | + + + + + | Poncho Oquendo | ECON | [address] | | | | | [place] | | | | | [address] | | + + + + + | Marta Upton | ECON | [place] | | | | | [address] | | + + + + + Care Team Providers + +------+ + | Care Varnish Dipper Name | Role | Phone | + [...] + | 12/09/ | Telephone | [facility] | Reinaldo, | Other | | 2014 | | [facility] CTR [facility] | Epifanio Soler MD [address] | | | | | ONCOLOGY CLINIC [address] | [facility] | | | | | W [facility] | [place] [address] | | | | | [place] [address] | [phone] | | | | | [phone] | | | +--------+ + + + [...] | | | | | [facility] [address] | | | | | | [phone] | | | | | | | | +--------+---------+ + + + documented as of this encounter Visit Diagnoses Not on filedocumented in this encounter"
--- OUTSIDE RECORDS SUMMARY | ~2019-06-13 | XMS | Encounter Summary ---
Demographics + + + | Address | [address] | | | [place] [address] | + + + | Home Phone [...] Team Providers + +------+ + | Care Admission Liaison Name | Role | Phone | + +------+ + | Tomasa Wagenr | PCP | | + +------+ + Encounter Details +--------+ + + + + | Date | Type | Department | Care Team | Description | +--------+ + + + + | 10/02/ | Abstract | Digestive Health | Tai Stanton, | | | 2012 | | Center at [facility] [address] | [address] | | | | | [facility] | [facility] | | | | | for Health and | [place], [place] | | | | | [facility], [place] [address] | [address] | | | | | [place], [place] | [phone] | | | | | [address] | | | | | | [phone] | | | +--------+ + + + [...]
--- OUTSIDE RECORDS SUMMARY | ~2019-06-13 | XMS | Encounter Summary ---
Demographics + + + | Address | [address] | | | [place] [address] | + + + | Home Phone [...] | Author | [facility] | | | and Eduardoana | + + + | Organization | [facility] | | | and Eduardoana | + + + | Address | Unknown | + + + | Phone | Unavailable | + + + Support + + + + + | Name | Relationship | Address | Phone | + + + + + | Poncho Oquendo | ECON | [address] | | | | | [place] | | | | | [address] | | + + + + + | Marta Upton | ECON | [place] | | | | | [address] | | + + + + + Care Team Providers + +------+ + | Care Sugarcane Planter Name | Role | Phone | + [...] + + + + | 05/28/ | Telephone | [facility] | Reinaldo, | Other | | 2016 | | [facility] CTR MED[facility] | Epifanio Soler MD [address] | | | | | ONCOLOGY CLINIC [address] | [facility] | | | | | W [facility] | [place] [address] | | | | | [place] [address] | [phone] | | | | | [phone] | | | +--------+ + + + [...] | | | | | | [facility] [address] | | | | | | [phone] | | | | | | | | +--------+---------+ + + + documented as of this encounter Visit Diagnoses Not on filedocumented in this encounter"
--- OUTSIDE RECORDS SUMMARY | ~2019-06-13 | XMS | Encounter Summary ---
Demographics + + + | Address | [address] | | | [place] [address] | + + + | Home Phone [...] + | Author | [facility] | | | and Eduardoana | + + + | Organization | [facility] | | | and Eduardoana | + + + | Address | Unknown | + + + | Phone | Unavailable | + + + Support + + + + + | Name | Relationship | Address | Phone | + + + + + | Poncho Oquendo | ECON | [address] | | | | | [facility] [place] [place] | | | | | [address] | | + + + + + | Marta Upton | ECON | [place] | | | | | [address] | | + + + + + Care Team Providers + +------+ + | Care Social Work Program Coordinator Name | Role | Phone [...] + + | 04/19/ | Telephone | [facility] | Pedro Green, | Other (Labs for | | 2019 | | UROLOGY [address] | DO [address] | Procedure) | | | | [address] | [place] [address] | | | | | [place], [place] | [phone] | | | | | [address] | | | | | | [phone] | | | +--------+ + + + [...] | | | | | [place] [address] | | | | | | [phone] | | | | | | | | +--------+---------+ + + + documented as of this encounter Visit Diagnoses Not on filedocumented in this encounter"
--- OUTSIDE RECORDS SUMMARY | ~2019-06-13 | XMS | Encounter Summary ---
Demographics + + + | Address | [address] | | | [place] [address] | + + + | Home Phone [...] Team Providers + +------+ + | Care Cardiac Cath Lab Radiology Technologist Name | Role | Phone | [...] | | | Reconstructive | Velma [place] Bly, | Examination (Primary | | | | Services at [facility] | [place] [address] | Dx); Perforation of | | | | [address] | [phone] | Nasal Septum | | | | Mailcode: CH5E | | | | | | [facility] | | | | | | and Healing, | | | | | | Building 1, 5th | | | | | | Floor [place], [place] | | | | | | [address] | | | | | | [phone] | | | +--------+---------+ + + + [...] take place on the hill at the [facility]: Surgeries scheduled in the [facility] (4 North): registration is located on the 4th floor of [facility] (Day Surgery). Surgeries scheduled in the [facility]: registration is located on the 9th floor. Surgeries scheduled in [facility]: registration is located on the 6th floor. Surgeries scheduled in the [facility]: registration is located i n the [facility] on the first floor. For surgeries scheduled to take place at the [facility]: registration is l ocated [...] If you use specialized medical equipment at [facility], please check with your provider before [...] Surgery Dept. of Otolaryngology/Head and Neck Surgery [facility] [place] [email or web address], Prudencio Coello MD - 2008 [...] BTL Allergies: nkda Social History: Lives in [place]. Past smoking history, none now. No alcohol [...] wishes to sc hedule. Jose Olivia MD Junior Marketing Associate Facial Plastic and Reconstructive Surgery Department of Otolaryngology/Head and Neck Surgery [facility] Email - [email or web address] HISTORY: Clinic: Facial Plastic and Reconstructive [...] today. Photos obtained. She met with my general i farmworker maximo hirsch. Followup arranged for preop. Time spent with patient /family, reviewing studies/ recor ds 20 minutes, with >50 % of time spent in consultation and coordination of care. Virgilio Buck MD FACS Professor Facial Plastic and Reconstructive Surgery Dept. of Otolaryngology/Head and Neck Surgery [facility] tel fax email [email or web address] CURRENT PROBLEM LIST: Patient Active Problem [...]
--- OUTSIDE RECORDS SUMMARY | ~2019-06-13 | XMS | Encounter Summary ---
Demographics + + + | Address | [address] | | | [place] [address] | + + + | Home Phone [...] + | Author | [facility] | | | and Eduardoana | + + + | Organization | [facility] | | | and Eduardoana | + + + | Address | Unknown | + + + | Phone | Unavailable | + + + Support + + + + + | Name | Relationship | Address | Phone | + + + + + | Poncho Oquendo | ECON | [address] | | | | | [facility] [place] | | | | | [address] | | + + + + + | Marta Upton | ECON | [place] | | | | | [address] | | + + + + + Care Team Providers + +------+ + | Care Coding Clerks Supervisor Name | Role | Phone | [...] + + | 10/18/ | Telephone | [facility] | Pedro Green, | Other (Canceling | | 2019 | | UROLOGY [address] | DO [address] | Appointment) | | | | [address] | [place] [address] | | | | | [place], [place] | [phone] | | | | | [address] | | | | | | [phone] | | | +--------+ + + + [...] [address] | | | | | | [place] [address] | | | | | | [phone] | | | | | | | | +--------+---------+ + + + documented as of this encounter Visit Diagnoses Not on filedocumented in this encounter"
--- OUTSIDE RECORDS SUMMARY | ~2019-06-13 | XMS | Encounter Summary ---
Demographics + + + | Address | [address] | | | [place] [address] | + + + | Home Phone [...] Team Providers + +------+ + | Care Broke Beater Name | Role | Phone | + [...] | 2015 | Encounter | [facility] | [address] | Appointment | | | | [address] | Surendra Velma | | | | | [address] | [place], [place] | | | | | Pavilion, [address] [place] [address] | [address] | | | | | [place], [place] | [phone] | | | | | [address] | | | | | | [phone] | | | +--------+ + + + [...]
--- OUTSIDE RECORDS SUMMARY | ~2019-06-13 | XMS | Encounter Summary ---
Demographics + + + | Address | [address] | | | [place] [address] | + + + | Home Phone [...] + | Author | [facility] | | | and Eduardoana | + + + | Organization | [facility] | | | and Eduardoana | + + + | Address | Unknown | + + + | Phone | Unavailable | + + + Support + + + + + | Name | Relationship | Address | Phone | + + + + + | Poncho Oquendo | ECON | [address] | | | | | [facility], [place] | | | | | [address] | | + + + + + | Marta Upton | ECON | [place], [place] | | | | | [address] | | + + + + + Care Team Providers + +------+ + | Care Operator Automated Process Name | Role | Phone | + +------+ + PCP | Unavailable | + +------+ + Encounter Details +--------+ + + + + | Date | Type | Department | Care Team | Description | +--------+ + + + + | 03/12/ | Hospital | [facility] | Hakan Cherry | | | 2011 | Encounter | MED CTR XRAY [address] | [address] | | | | | [place] | [place], [place] | | | | | [place] [address] | [address] | | | | | [phone] | | | +--------+ + + + [...] | Visit | | DO [address] [facility] | | | | | | [place] [address] | | | | | | [phone] | | | | | | | [...] | | [address] [facility] [place] | [facility] | | RIGHT HIP, 03/12/2011 [...] Transcribed Date/Time: 03/12/2011 | | | 11:29 Inverter And Clipper: <Electronically Signed by Alejandro Keller | | | MD Mo> 03/12/11 1459 | | + + + + + | Procedure Note | + + | Edmundo, Hardy Conversion - 03/23/2013 4:38 PM [facility] | | Diagnostic Imaging Department [address] [facility] [place] | | RIGHT HIP, [...] by Alejandro Hassan MD> 03/12/11 | | 3209 | |FINDINGS: AP view of the pelvis [...] 11:24 | |Transcribed Date/Time: 03/12/2011 11:29 | |Inverter And Clipper: | |<Electronically Signed by Alejandro Hassan MD> 03/12/11 0645 | + + + +---------+ + + [...] | [facility] | [facility] | | [address] [facility] | [facility] | | LATERAL VIEWS, LUMBAR [...] | | | Transcribed Date/Time: 03/12/2011 11:29 Inverter And Clipper: | | | <Electronically Signed by Alejandro Hassan MD> 03/12/11 1459 | | + + + + + | Procedure Note | + + | Hardy Wyatt Conversion - 03/23/2013 4:38 PM [facility] | | Diagnostic Imaging Department [address] [facility] [place] | | LATERAL VIEWS, LUMBAR SPINE [...] 11:23 | |Transcribed Date/Time: 03/12/2011 11:29 | |Inverter And Clipper: | |<Electronically Signed by Alejandro Hassan MD> [...]
--- OUTSIDE RECORDS SUMMARY | ~2019-06-13 | XMS | Encounter Summary ---
Demographics + + + | Address | [address] | | | [place] [address] | + + + | Home Phone | | + + + | Preferred Language | Unknown | + + + | Marital Status | Single | + + + | Yazidi Affiliation | NON | + + + [...] Team Providers + +------+ + | Care Tobacco Farmworker Name | Role | Phone | [...] | 2014 | Encounter | [facility] | [address] | | | | | Alexis [address] | [address] | | | | | [address] | [place], [place] | | | | | Alexis, [facility] floor | [address] | | | | | [place], [place] | [phone] | | | | | [address] | | | | | | [phone] | | | +--------+ + + + [...]
--- OUTSIDE RECORDS SUMMARY | ~2019-06-13 | XMS | Encounter Summary ---
Demographics + + + | Address | [address] | | | [place] [address] | + + + | Home Phone [...] Author | [facility] | | | and Eduardoana | + + + | Organization | [facility] | | | and Eduardoana | + + + | Address | Unknown | + + + | Phone | Unavailable | + + + Support + + + + + | Name | Relationship | Address | Phone | + + + + + | Poncho Oquendo | ECON | [address] | | | | | [place] | | | | | [address] | | + + + + + | Marta Upton | ECON | [place] | | | | | [address] | | + + + + + Care Team Providers + +------+ + | Care Parts Coordinator Name | Role | Phone | [...] 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, | [address]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 | MD [address] | [place], | | | | | (HCC) | [address] | [place] [address] | | | | | Procedures | [place], | Phone: | | | | | [place] | [place] [address] | [phone] | | | | | DIPHENHYDRAM | Phone: | Fax: | | | | | INE HCL | [phone] | [phone] | | | | | INJECTIO, 50 | Fax: | | | | | | [place] | [phone] | | | | | | [place] [...] + + | 05/20/ | Hospital | [facility] | Vladimir Robles, | Gallbladder cancer, | | 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 documented in this encounter Plan of Treatment +--------+---------+ + + + | Date | Type | Specialty | Care Team | Description | +--------+---------+ + + + | 09/17/ | Office | Urology | Pedro Green, | | | 2019 | Visit | | DO Vaishali [facility] | | | | | | [place] [address] | | | | | | [phone] | | | | | | | [...]
--- OUTSIDE RECORDS SUMMARY | ~2019-06-13 | XMS | Encounter Summary ---
Demographics + + + | Address | [address] | | | [place] [address] | + + + | Home Phone [...] Providers + +------+ + | Care Senior Treasury Consultant Name | Role | Phone | [...] 2012 | | Center at [facility] [address] | [address] | | | | | [address] [facility] | [facility] | | | | | for Health and | [place], [place] | | | | | [facility] [place] [address] | [address] | | | | | [place], [place] | [phone] | | | | | [address] | | | | | | [phone] | | | +--------+ + + + [...]
--- OUTSIDE RECORDS SUMMARY | ~2019-06-13 | XMS | Encounter Summary ---
Demographics + + + | Address | [address] | | | [place] [address] | + + + | Home Phone [...] | Author | [facility] | | | and Eduardoana | + + + | Organization | 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, | [address] [place]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 | MD [address] | [place], | | | | | (HCC) | [address] | [place] [address] | | | | | Procedures | [place], | Phone: | | | | | [place] | [place] [address] | [phone] | | | | | ONDANSETRON | Phone: | Fax: | | | | | HCL | [phone] | [phone] | | | | | INJECTION, 1 | Fax: | | | | | | [place] | [phone] | | | | | | FOSAPREPITAN [...] | | | | | | [place] | | | | | | [...] | | | | | | [address] [place] | | | | | | [...] + + | 10/31/ | Hospital | [facility] | Reinaldo, | Gallbladder cancer, | | 2015 | Encounter | MED CTR CHEMO | Epifanio Soler MD [address] | carcinoma (HCC) | | | | INFUSION [address] | [address] [place] | (Primary Dx) | | | | [place], | [place] [address] | | | | | [place] [address] | [phone] | | | | | [phone] | | | +--------+ + + + [...] [facility] | | | | | | [place] [address] | | | | | | [phone] | | | | | | | [...] autodiff. | [facility] | | | [facility] | | | [facility] | | | - LABORATORY | + + + + + + + + | Performing | Address | City/State/Zipcode | Phone Number | | Organization | | | | + + + + + | [facility] | [address] | [place] | [phone] | | [facility] | | [address] | | | - LABORATORY | | [...] | | | | | | [place] [address] | | | | + + + + + + + + | Specimen | + + | Blood specimen | | (specimen) | + + + + + + + | Performing | Address | City/State/Zipcode | Phone Number | | Organization | | | | + + + + + | [facility] | [address] | [place] [address] | [phone] | + + + + + [place] [...] [address] | [place] | [phone] | | [facility] | | [address] | | | - LABORATORY | | [...] + | [facility] | [address] | [place] | [phone] | | [facility] | | [address] | | | - LABORATORY | | [...] | | | | mmol/L | [facility] | | | | | | MEDICAL [...] | mL/min/1.73m2 | [facility] | | | MONGOLIAN | RATE,ESTIMATED | | MEDICAL | | | | mL/min/1.12p1Yunv than | | CENTER - | | [...] [address] | [place] | [phone] | | [facility] | | [address] | | | - LABORATORY | | [...] | | | | g/dL | [facility] | | | | [...] [address] | [place] | [phone] | | [facility] | | [address] | | | - LABORATORY | | [...] | | | | | Intracatheter, ONCE, [facility] 10/31/14 | | AM PDT | | [...] | | | over 1 Hours, ONCE, [facility] 10/31/14 | | | | | | [...] | | | over 30 Minutes, ONCE, [facility] | | | | | | | [...] | | | | | Care, Starting [facility] 10/31/14 at | | | | | [...] | | | | | Minutes, ONCE, [facility] 10/31/14 at | | | | | | | 1015, For 1 dose, Administer | | | | | | | prior to chemotherapy., | | | | | | + +---------+ +---+-------+---+ +---+---+ | | | +---+---+ documented in this encounter"
--- OUTSIDE RECORDS SUMMARY | ~2019-06-13 | XMS | Encounter Summary ---
Demographics + + + | Address | [address] | | | [place] [address] | + + + | Home Phone [...] Author | [facility] | | | and Eduardoana | + + + | Organization | [facility] | | | and Eduardoana | + + + | Address | Unknown | + + + | Phone | Unavailable | + + + Support + + + + + | Name | Relationship | Address | Phone | + + + + + | Poncho Oquendo | ECON | [address] | | | | | [place] | | | | | [address] | | + + + + + | Marta Upton | ECON | [place] | | | | | [address] | | + + + + + Care Team Providers + +------+ + | Care Nurse Prn Name | Role | Phone | + [...] + | 10/10/ | Telephone | [facility] | Reinaldo, | Lab Results | | 2018 | | MED [facility] | Epifanio Soler MD [address] | | | | | ONCOLOGY CLINIC [address] | [facility] | | | | | [address] | [place] [address] | | | | | [place] [address] | [phone] | | | | | [phone] | | | +--------+ + + + [...] [facility] | | | | | | [place] [address] | | | | | | [phone] | | | | | | | | +--------+---------+ + + + documented as of this encounter Visit Diagnoses Not on filedocumented in this encounter"
--- OUTSIDE RECORDS SUMMARY | ~2019-06-13 | XMS | Encounter Summary ---
Demographics + + + | Address | [address] | | | [place] [address] | + + + | Home Phone [...] Team Providers + +------+ + | Care Corrosion Control Engineer Name | Role | Phone | [...] | | 2012 | | Center at [facility] [address] | [address] | Review ( abd ) | | | | [address] [facility] | [facility] | | | | | [facility] and | [place], [place] | | | | | [facility] 2 | [address] | | | | | [place], [place] | [phone] | | | | | [address] | | | | | | [phone] | | | +--------+ + + + [...]
--- OUTSIDE RECORDS SUMMARY | ~2019-06-13 | XMS | Encounter Summary ---
Demographics + + + | Address | [address] | | | [place] [address] | + + + | Home Phone [...] Author | [facility] | | | and Eduardoana | + + + | Organization | [facility] | | | and Eduardoana | + + + | Address | Unknown | + + + | Phone | Unavailable | + + + Support + + + + + | Name | Relationship | Address | Phone | + + + + + | Poncho Oquendo | ECON | [address] | | | | | [place] | | | | | [address] | | + + + + + | Marta Upton | ECON | [place] | | | | | [address] | | + + + + + Care Team Providers + +------+ + | Care Rn Field Case Manager Name | Role | Phone | [...] | | Personal | Reinaldo, | [address] | | | | | 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, | [place], | | | | | 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 [address] | [place] [address] | | | | | neoplasm of | [address] | Phone: | | | | | other site | [place], | [phone] | | | | | in | [place] [address] | Fax: | | | | | gastrointest | Phone: | [phone] | | | | | inal tract | [phone] | | | | | | Procedures | Fax: | | | | | | CT Abdomen | [phone] | | | | | | Pelvis [...] | [facility] | [facility], | Personal history of | | 2013 | Encounter | MED CTR MEDICAL | Epifanio Soler MD [address] | malignant neoplasm | | | | ONCOLOGY CLINIC [address] | [address] [place] | of other site in | | | | [facility] | [place] [address] | gastrointestinal | | | | [place] [address] | [phone] | tract (Primary Dx); | | | | [phone] | | Chronic low back | | [...] Aura Upton is a 52-year-old woman from [place], [place] who h as 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 Tai Stanton of the [facility] April 28, 2012. ACTIVE DIAGNOSES: 1. Presentation with biliary colic in March of 2012 status post cholecystectomy and live r biopsy by Dr. Brandon Garcia March 29, 2012, pathological specimen [id number], analyzed by Dr. Bowers of [facility] and was notable for a poorly-differentiated adenoca rcinoma of the gallbladder. Liver biopsy demonstrated mild portal inflammation. 2. On April 28, 2012, she successfully underwent an R0 resection by Dr. Tai Stanton at [facility], pathological specimen [id number] was notable for the absence of any residual carcinoma within the gallbladder bed. However, 2/8 regional ly mph nodes contained regionally metastatic disease. 3. Consultation by Dr. Elva Grey of the [facility] on May returned the recommendation for adjuvant chemoradiation therapy following [id number] as follows: Capecitabine at 750 mg/m sq [...] [facility] | | | | | | [place] [address] | | | | | | [phone] | | | | | | | [...] + | MISCELLANEOUS LAB | | | [phone] | + +---------+ + + | MISCELANIOUS LAB | | | [phone] | + +---------+ + + [place] 19-9, [...] | | | | | | [place] [address] | | | | + + + + + + + + | Specimen | + + | Blood specimen | | (specimen) | + + + + + + + | Performing | Address | City/State/Zipcode | Phone Number | | Organization | | | | + + + + + | [facility] | [address] | [place] [address] | [phone] | + + + + + [facility] [...] + | [facility] | [address] | [place], [place] | [phone] | | [facility] | | [address] | | | - LABORATORY | | | | + + + + + | [facility] | [address] | [place], [place] | | | [facility] | | [address] [place] [address] | | | - LABORATORY | | [...] + | [facility] | [address] | [place] | [phone] | | [facility] | | [address] | | | - LABORATORY | | | | + + + + + | [facility] | [address] | [place] | | | [facility] | | [address], [facility] | | | - LABORATORY [...] mL/min/1.73m2 | [facility] | | | [place] | RATE,ESTIMATED | | MEDICAL | | | | mL/min/1.92z8Izrw than | | CENTER - | | [...] | | Protein | | | [facility] | | [...] + | [facility] | [address] | [place] | [phone] | | [facility] | | [address] | | | - LABORATORY | | | | + + + + + | [facility] | [address] | [place] | | | [facility] | | [address] | | | [...] + | [facility] | [address] | [place], [place] | [phone] | | [facility] | | [address] | | | - LABORATORY | | | | + + + + + | [facility] | [address] | [place], [place] | | | [facility] | | [address], [facility] | | | - LABORATORY [...] + | [facility] | [address] | [place], [place] | [phone] | | [facility] | | [address] | | | - LABORATORY | | | | + + + + + | [facility] | [address] | [place] | | | [facility] | | [address], [facility] | | | - LABORATORY [...] mL/min/1.73m2 | [facility] | | | [place] | RATE,ESTIMATED | | MEDICAL | | | | mL/min/1.48q2Rhva than | | CENTER - | | [...] [address] | [place] | [phone] | | [facility] | | [address] | | | - LABORATORY | | | | + + + + + | [facility] | [address] | [place] | | | [facility] | | [address], [facility] | | | - LABORATORY [...] + | [facility] | [address] | [place], [place] | [phone] | | [facility] | | [address] | | | - LABORATORY | | | | + + + + + | [facility] | [address] | [place], [place] | | | [facility] | | [address], [facility] | | | - LABORATORY [...] [address] | [place] | [phone] | | [facility] | | [address] | | | - LABORATORY | | | | + + + + + | [facility] | [address] | [place], [place] | | | [facility] | | [address], [facility] | | | - LABORATORY [...] | | | | | | [place] [address] | | | | + + + [...] [address] | [place] [address] | [phone] | + + + + + documented in this encounter Visit Diagnoses + + | Diagnosis | + + | Personal history of malignant neoplasm of other site in gastrointestinal tract - | | Primary | + + | Chronic low back pain Lumbago | + + documented in this encounter
--- OUTSIDE RECORDS SUMMARY | ~2019-06-13 | XMS | Encounter Summary ---
Demographics + + + | Address | [address] | | | [place] [address] | + + + | Home Phone [...] Team Providers + +------+ + | Care Mobile Home Servicer Name | Role | Phone | [...] HIEN Maya | | | | | [place], [place] | [address] | | | 12/27/ | | [address] | [place], [place] | | | 2017 | | [phone] | [address] | | | | | | [phone] | | | | | | | | | | | | Marbin Espinoza MD | | | | | | [address] | | | | | | [place], | | | | | | [place] [address] | | | | | | [phone] | | | | | | | | | | | | Lloyd Garcia, | | | | | | [address] | | | | | | [address] | | | | | | [place], [place] | | | | | | [address] | | | | | | [phone] | | | | | | | [...] might be differen t from the original. [facility] Discharge Summary Discharging Provider: RAGHU JARRETT MD [...] # Klebsiella bacteremia # infected portacath At [facility], Ms. Upton was hypotensive to 70/40s with fever concerning for septic s hock. She received IV fluids and 1 unit pRBCs for Hgb of 7.0 and was transferred to [facility] for further care. On admission to [facility], she was no longer hypotensive and did not require vasopressors. She was started on cefepime, flagyl, and vancomycin. Blood cultures at [facility] fro m 12/23 revealed Klebsiella pneumoniae from both R hand and portacath. It was pansentitive. I nfectious disease was consulted who found that pt has Klebsiella bacteremia 1 month ago joyce whiting admitted to [facility] for sepsis. Given 2 bacteremic [...] date. Culture from cath tip 12/27: pending [facility] Blood culture 12/23 x2 (peripheral and port) GNR; cx Klebsiella pneumonia (R: ampicillin; s: cefazolin, ceftriaxone, meropenem, ciprofloxacin, tmp/smx) Discharge Medications: Medication List START taking these medications ciprofloxacin HCl 500 mg Tab Commonly known as: CIPRO Take 1 tablet by mouth every twelve hours. Indications: port infection NARCAN 4 mg/actuation [place] Generic drug: naloxone Instill 1 spray into [...] [address] [place] [address] VALERIY CARMONA MD . Specialty: Family Medicine Contact information [facility] [address] [place] [address] Discharge Physical Exam: Last 24 hour min/max [...] Raghu Jarrett M.D. Internal Medicine PGY-3 Pager [phone] Associated attestation - Lloyd Garcia MD - 12/27/2017 10:01 PM [facility] Date of admission: 12/23/2017 11:11 [...] and follow up plan. Lloyd Garcia MD Padded Products Inspector Trimmerjr. java developer Clinical Hospitalist and Medicine Teaching Service Division of [facility] Medicine Pager [phone] Patients Hospital Problem List: Active Hospital Problems [...] MD - 12/27/2017 12:40 PM PST{Diet Inst ructions:05936} Discharge Instr - Activity (facility) Lloyd Garcia MD - 12/27/2017 12:40 PM PST{Activ ity Orders:41765} Additional Instructions Lloyd Garcia MD - 12/27/2017 12:39 PM PST{Additional Instruct ions AVS:38323} Opioid Pain Management {Opioid pain medication plan:63601} documented in this encounter Medications at Time [...] 15 oz) (12/23/172321) Physical Exam: General: pleasant poo-khwca-ynjfomozg woman lying in bed in no acute [...] oral BID Microbiology: 11/07 blood culture at [facility] also grew klebsiella pneumoniae, when she had sepsis 12/23 blood culture at [facility] Klebsiella pneumoniae NGTD 12/23 blood cultures here Imaging: No new imaging Hospital problem list: Patient Active Problem List Diagnosis Date Noted Bacteremia due to Gram-negative bacteria 12/24/2017 Priority: 1 JULY (acute kidney injury) (HCC) 12/24/2017 Priority: 2 Cholangiocarcinoma (HCC) 04/27/2012 Priority: 3 Overview Note: -Diagnosed 2012. Followed by Dr. Ragland at [facility] in [place]. -04/26/2012: R0 Resection. -05/31/2012-09/03/2012 Chemotherapy: Xeloda/gemictabine x4 [...] her port has been used. Records per [facility] from 11/07 and 12/23. Was on antibiotics [...] Arley ramirez - update Dr. Ragland in [place] on Tuesday # thrombocytopenia Likely chemotherapy related [...] Maker Primary Surrogate Decision Maker Poncho Oquendo [phone] Patient was staffed with my attending Dr. Garcia who agrees with my assessment and plan unl ess otherwise indicated. Myriam Holt MD 12/25/2017 PGY1 physician [id number] Associated attestation - Lloyd Garcia MD - 12/26/2017 9:53 PM PSTGENERAL MEDICINE CO OGRESS NOTE ATTESTATION Date of admission: 12/23/2017 [...] removal, documenting, reviewing records. Lloyd Garcia MD Padded Products Inspector Trimmerjr. java developer Clinical Hospitalist and Medicine Teaching Service Division of [facility] Medicine Pager [phone] Patients Hospital Problem List: Active Hospital Problems 1) *Bacteremia due to Gram-negative bacteria 2) JULY (acute kidney injury) (HCC) 3) Chronic use of opiate drugs therapeutic purposes 4) Hx of small bowel obstruction 5) Gastrostomy tube in place (HCC) 6) Insomnia 7) Moderate protein-calorie malnutrition (HCC) Myriam Holt MD - 12/25/2017 10:08 AM PSTFormatting of this note might be different from e original. [facility] Progress Note 12/25/2017 Admit Date: 12/23/2017 Hospital Day: 2 Attending Physician: Dr. Marbin Espinoza 24 Hour Events/ Subjective: -transferred to [facility] from intensive care -"take out my [...] 15 oz) (12/23/172) Physical Exam: General: pleasant fnr-albas-xclutbgwn woman lying in bed in no acute [...] oral BID Microbiology: 12/23 blood culture at [facility] gram negative bacilli NGTD 12/23 blood cultures here Imaging: No new imaging Hospital problem list: Patient Active Problem List Diagnosis Date Noted Bacteremia due to Gram-negative bacteria 12/24/2017 Priority: 1 JULY (acute kidney injury) (HCC) 12/24/2017 Priority: 2 Cholangiocarcinoma (HCC) 04/27/2012 Priority: 3 Overview Note: -Diagnosed 2012. Followed by Dr. Ragland at [facility] in [place]. -04/26/2012: R0 Resection. -05/31/2012-09/03/2012 Chemotherapy: Xeloda/gemictabine x4 [...] Maker Primary Surrogate Decision Maker Poncho Oquendo [phone] Patient will be staffed with my attending physician, Dr. Marbin Espinoza, within 24 hours. Myriam Holt MD 12/25/2017 PGY1 physician [id number] Associated attestation - Marbin Espinoza MD - 12/25/2017 7:16 PM PSTI agree with bita carmen resident note. For additional information, please refer to my note from today's date. Marbin Espinoza MD Clinical Hospitalist & Medical Teaching Services [facility] Pager [phone] Simtha Paul MD - 12/24/2017 11:28 AM PSTFormatting of this note might be different fro m the original. MICU Attending Note Admission Date: 12/23/2017 Length of stay: 1 days ID: Aura Upton is a 57 y.o. female with metastatic cholangiocarcinoma (on palliative chemotherapy with gemcitabine/cisplatin q3wk) admitted to the MICU from [place] for suspec ashley septic shock. Present on [...] longer critica lly ill. SMITHA PAUL MD [facility] [address] [place] [address] Brittany Crouch MD - 12/24/2017 6:14 AM PST [facility] MEDICAL ICU - PROGRESS NOTE Hospital Day: 1 | ICU Day: 1 ID/CC: Aura Upton is a 57 y.o. woman w/ metastatic cholangiocarcinoma (on palliative chemotherapy with gemcitabine/cisplatin q3wk) admitted to the MICU from [place] for suspe cted septic shock. Consultants: HIEN, [...] the duration of her hospital ization at [facility] and continued to have intermittent fevers and chills while she was there. S he was frustrated with [facility] because they would only send [...] gemcitabine/carboplatin q3wk) admitted to the MICU from [place] for suspected s eptic shock. Neurological # [...] Oquendo, Brittany Dean MD Anesthesiology PGY-1 p: [phone] 12/24/2017, 6:14 AM Template created by DERREK [...] (gemcitabine/carboplatin) for metastatic cholangiocarcinoma. Since arrival to [place] E D has received 4L fluid and [...] floor. Dagoberto Iniguez MD Pulmonary/Critical Care Medicine [phone] documented in this en counter Plan of [...] | | POC | | PST | ([facility]) | results section. | + +--------+ + [...] | | POC | | PST | ([facility]) | results section. | + +--------+ + + + | CAPILLARY BLOOD | Routin | 12/27/2017 | Sepsis, due to | Results for this | | GLUCOSE (NO CHG), | e | 8:27 AM | unspecified organism | procedure are in the | | POC | | PST | ([facility]) | results section. | + +--------+ + [...] | | POC | | PST | ([facility]) | results section. | + +--------+ + + + | CAPILLARY BLOOD | Routin | 12/26/2017 | Sepsis, due to | Results for this | | GLUCOSE (NO CHG), | e | 11:23 AM | unspecified organism | procedure are in the | | POC | | PST | ([facility]) | results section. | + +--------+ + + + | CAPILLARY BLOOD | Routin | 12/26/2017 | Sepsis, due to | Results for this | | GLUCOSE (NO CHG), | e | 10:12 AM | unspecified organism | procedure are in the | | POC | | PST | ([facility]) | results section. | + +--------+ + [...] | | POC | | PST | ([facility]) | results section. | + +--------+ + + + | CAPILLARY BLOOD | Routin | 12/25/2017 | Sepsis, due to | Results for this | | GLUCOSE (NO CHG), | e | 1:41 PM | unspecified organism | procedure are in the | | POC | | PST | ([facility]) | results section. | + +--------+ + [...] | | POC | | PST | ([facility]) | results section. | + +--------+ + + + | CAPILLARY BLOOD | Routin | 12/25/2017 | Sepsis, due to | Results for this | | GLUCOSE (NO CHG), | e | 12:31 AM | unspecified organism | procedure are in the | | POC | | PST | ([facility]) | results section. | + +--------+ + [...] | + +--------+ + + + | [facility] PORTAL / | Routin | 12/24/2017 [...] | | POC | | PST | ([facility]) | results section. | + +--------+ + [...] KANNAN | [address] | [place], [place] | | | JOHN CONTE OF ARJUN | [address] | [address] | | | TESTS | | | [...] + | GRAY - AIRPORT - | [address] | [place] [address] | | | [place] | | | | + + + [...] BRUNNER | [address] | [place], [place] | | | JOHN CONTE OF CARE | [address] | [address] | | | TESTS | | | [...] BRUNNER | [address] | [place], [place] | | | [facility] [place]UN | [address] | [address] | | | TESTS | | | [...] | + + + + + | [facility] | [address] | [place] [address] | | | SERVICES, CORE | NEAL [...] | | | LABORATORY | | | SUDANESE | | | SERVICES, | | | [...] [facility] | [address] | [place] [address] | | | SERVICES, CORE | NEAL [...] + + + | GWEN BRUNNER | [address] | [place], [place] | | | JOHN [facility] [place]UN | [address] | [address] | | | TESTS | | | [...] MARQUAM | [address] | [place], [place] | | | JOHN CONTE OF CARE | [address] | [address] | | | TESTS | | | [...] - KANNAN | [address] | [place], [place] | | | [facility] | [address] | [address] | | | TESTS | | | [...] | | | LABORATORY | | | SUDANESE | | | SERVICES, | | | [...] MDRD equation recommended by the | [facility] | | National Kidney Disease Education [...] [facility] | [address] | [place] [address] | | | SAM ALONSO | NEAL [...] 95 | 60 - 99 mg/dL | [facility] - | | | GLUCOSE, [...] NAELAM | [address] | [place], [place] | | | JOHN [facility] ARJUN | [address] | [address] | | | TESTS | | | [...] BRUNNER | [address] | [place], [place] | | | JOHN CONTE OF AR[place]UN | [facility] | [address] | | | TESTS | | | [...] [facility] | [address] | [place] [address] | | | SERVICES, CORE | [address] [...] [facility] | [address] | [place] [address] | | | SERVICES, CORE | [address] | | | + + + + + CULTURE, BLOOD BACTI & YEAST [facility] (12/25/2017 7:18 AM PST) + + [...] | + + + + + | [facility] | [address] | [place] [address] | | | SERVICES, CORE | NEAL [...] [facility] | [address] | [place] [address] | | | SERVICES, CORE | P[address] [...] [facility] | [address] [facility] | [place] [address] | | | SERVICES, CORE | NEAL [...] | | | LABORATORY | | | SUDANESE | | | SERVICES, | | | [...] | + + + + + | [facility] | [address] | [place] [address] | | | SERVICES, CORE | NEAL [...] MARQUAM | [address] | [place], [place] | | | DG POINT OF CARE | [address] | [address] | | | TESTS | | | [...] + | [facility] | [address] [facility] [address] [address] | [place], [place] | | | DG [facility] | [facility] | [address] | | | TESTS | | | [...] | + + + + + | [facility] | [address] [facility] | [place] [address] | | | SERVICES, CORE | P[address] [...] [facility] | [address] | [place] [address] | | | SERVICES, CORE | [address] [...] [facility] | [address] | [place] [address] | | | SERVICES, SAM | PARK [...] [facility] | [address] [facility] | [place] [address] | | | [facility] | [address] | | | + [...] At | + + + | EXAM: CO CHEST 1 VIEW HISTORY: fever COMPARISON: Outside [...] Interface - 12/24/2017 1:05 PM PST EXAM: CO CHEST 1 | | VIEW HISTORY: fever [...] | + + + + + | [facility] | [address] | [place] [address] | | | SERVICES, CORE | NEAL [...] | + + + + + | [facility] | [address] | [place] [address] | | | SERVICES, CORE | P[address] [...] | + + + + + | [facility] | [address] [facility] | [place] [address] | | | SERVICES, CORE | NEAL [...] | | | LABORATORY | | | SUDANESE | | | SERVICES, | | | [...] | + + + + + | [facility] | [address] [facility] | [place] [address] | | | SERVICES, SAM | NEAL [...] [facility] | [address] | [place] [address] | | | SERVICES, CORE | NEAL [...] DEPT OF | [address] | [place], [place] | | | CARDIOLOGY | [address] | [address] | | + + + + + [...] BRUNNER | [address] | [place], [place] | | | DG POINT OF CARE | [address] | [address] | | | TESTS | | | [...] + | [facility] | [address] | [place] [address] | | | SERVICES, CORE | P[address] [...] [facility] | [address] | [place] [address] | | | SERVICES, CORE | [address] [...] [facility] | [address] | [place] [address] | | | SERVICES, CORE | [address] [...] [facility] | [address] | [place] [address] | | | SERVICES, CORE | [address] [...] [facility] | [address] | [place] [address] | | | SERVICES, | [address] [...] [facility] | [address] | [place] [address] | | | SERVICES, | [address] [...] | [facility] | [address] [facility] | [place] [address] | | | SERVICES, CORE | NEAL [...] | | | LABORATORY | | | SUDANESE | | | SERVICES, | | | [...] MDRD equation recommended by the | [facility] | | National Kidney Disease Education [...] [facility] | [address] | [place] [address] | | | SAM ALONSO | NEAL [...]
--- OUTSIDE RECORDS SUMMARY | ~2019-06-13 | XMS | Encounter Summary ---
Demographics + + + | Address | [address] | | | [place] [address] | + + + | Home Phone [...] Team Providers + +------+ + | Care Analytical Scientist Name | Role | Phone | [...] & | Diagnoses | Non-[facility] | Cwh Ndt Inspector Onc | | | | Gynecology | Complex | Epic Dept | [address] | | | | | Cystic Mass, | | [address] | | | | | elevated | | Catherine | | | | | [address] per | | Alexis, 7th | | | | | appt notes | | floor | | | | | | | [place], [place] | | | | | | | [address] | | | | | | | Phone: | | | | | | | [phone] | | | | | | | Fax: | | | | | | | [phone] | +--------+--------+ + + + + Encounter Details +--------+---------+ + + + | Date | Type | Department | Care Team | Description | +--------+---------+ + + + | 06/18/ | Office | [facility] | Miguel Seymour, | 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 | [facility] | [address] | (HCC) (Primary Dx) | | | | [address] | [facility] | | | | | [address] | [place], [place] | | | | | Alexis, [facility] floor | [address] | | | | | [place], [place] | [phone] | | | | | [address] | | | | | | [phone] | | | +--------+---------+ + + + [...] RN - 06/18/2014 10:51 AM PDTPlease call [facility] scheduling to set up a post op follow up in 5-6 weeks for a pelvic exam. [phone], ok to coordinat e with an apt with or Romy (ok if it is longer than 6 weeks) if you like. documented in this encounter Progress Notes Pavithra Aviles MD - 06/18/2014 10:34 AM PDTFormatting of this note might be different fro m the original. RADIOGRAPHIC TECHNOLOGIST ONCOLOGY CONSULTATION Aura Upton 06/18/2014 PCP: SANDY [...] Pt has SO. Lives in [facility] [place]. 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 Likes to camp, entertain. REVIEW OF SYSTEMS: [...] sent to Cytology: - Please see corresponding [id number] B: Left ovary and fallopian tube, salpingo-oophorectomy: [...] excised lymph nodes from the gallbladder bed ([id number], s lides E3-4). Additionally, immunohistochemical staining on [...] Aviles MD Obstetrics and Gynecology, PGY1 Pager #[phone] I saw and evaluated the patient. I [...]
--- OUTSIDE RECORDS SUMMARY | ~2019-06-13 | XMS | Encounter Summary ---
Demographics + + + | Address | [address] | | | [place] [address] | + + + | Home Phone [...] [facility] [place] | | | and Eduardo[place] | + + + | Organization | [facility] [place] [...] [address] | | | | | [place] | | | | | [address] | | + + + + + | Marta Upton | ECON | [place] | | | | | [address] | | + + + + + Care Team Providers + +------+ + | Care Adjunct Instructor Name | Role | Phone | [...] | [facility] [address] | [facility] | | | | | [address] [facility] | [place] [address] | | | | | [place] [address] | [phone] | | | | | [phone] | | | +--------+ + + + [...] | | | | | [place] [address] | | | | | | [phone] | | | | | | | | +--------+---------+ + + + documented as of this encounter Visit Diagnoses Not on filedocumented in this encounter"
--- OUTSIDE RECORDS SUMMARY | ~2019-06-13 | XMS | Encounter Summary ---
Demographics + + + | Address | [address] | | | [place] [address] | + + + | Home Phone [...] Author | [facility] [place] | | | and [place] | + + + | Organization | [facility] [place] | | | and [place] | + + + | Address | Unknown | + + + | Phone | Unavailable | + + + Support + + + + + | Name | Relationship | Address | Phone | + + + + + | Poncho Oquendo | ECON | [address] | | | | | [facility] [place] [place] [place] | | | | | [address] | | + + + + + | Marta Upton | ECON | [place], [place] | | | | | [address] | | + + + + + Care Team Providers + +------+ + | Care Garden Worker Name | Role | Phone | + +------+ + | No, Physician | PCP | Unavailable | + +------+ + Encounter Details +--------+ + + + + | Date | Type | Department | Care Team | Description | +--------+ + + + + | 09/17/ | Hospital | [facility] | | | | 2013 | Encounter | MED CTR XRAY [address] | | | | | | [address] [place] | | | | | | [place] [address] | | | | | | [phone] | | | +--------+ + + + [...] | | | | | [place] [address] | | | | | | [phone] | | | | | | | | +--------+---------+ + + + documented as of this encounter Visit Diagnoses Not on filedocumented in this encounter"
--- OUTSIDE RECORDS SUMMARY | ~2019-06-13 | XMS | Encounter Summary ---
Demographics + + + | Address | [address] | | | [place] [address] | + + + | Home Phone [...] Author | [facility] [place] | | | and [place] | + + + | Organization | [facility] [place] | | | and [place] | + + + | Address | Unknown | + + + | Phone | Unavailable | + + + Support + + + + + | Name | Relationship | Address | Phone | + + + + + | Poncho Oquendo | ECON | [address] | | | | | [place], [place] | | | | | [address] | | + + + + + | Marta Upton | ECON | [place] | | | | | [address] | | + + + + + Care Team Providers + +------+ + | Care Real Estate Legal Assistant Name | Role | Phone | [...] + + | 06/26/ | Telephone | [facility] | Marcelina Johnson, | IDT Note | | 2014 | | MED CTR CHEMO | RN | | | | | INFUSION [address] | | | | | | [place], | | | | | | [place] [address] | | | | | | [phone] | | | +--------+ + + + [...] [address] | | | | | | [place] [address] | | | | | | [phone] | | | | | | | | +--------+---------+ + + + documented as of this encounter Visit Diagnoses Not on filedocumented in this encounter"
--- OUTSIDE RECORDS SUMMARY | ~2019-06-13 | XMS | Encounter Summary ---
Demographics + + + | Address | [address] | | | [place] [address] | + + + | Home Phone | | + + + | Preferred Language | Unknown | + + + | Marital Status | | + + + | Mandaeism Affiliation | Unknown | + + + | Race | Unknown | + + + | Ethnic Group | Unknown | + + + Author + + + | Author | [facility] [place] | | | and [place] | + + + | Organization | [facility] [place] | | | and [place] | + + + | Address | Unknown | + + + | Phone | Unavailable | + + + Support + + + + + | Name | Relationship | Address | Phone | + + + + + | Poncho Oquendo | ECON | [address] | | | | | [place] | | | | | [address] | | + + + + + | Marta Upton | ECON | [place] | | | | | [address] | | + + + + + Care Team Providers + +------+ + | Care Field Sales Representative Name | Role | Phone | + +------+ + | Valeriy Carmona DO | PCP | | + +------+ + Encounter Details +--------+ + + + + | Date | Type | Department | Care Team | Description | +--------+ + + + + | 07/30/ | Orders Only | [facility] | Marcelina Johnson, | | | 2016 | | MED CTR CHEMO | RN | | | | | INFUSION [address] | | | | | | [place], | | | | | | [place] [address] | | | | | | [phone] | | | +--------+ + + + [...] | | | | | [place] [address] | | | | | | [phone] | | | | | | | | +--------+---------+ + + + documented as of this encounter Visit Diagnoses Not on filedocumented in this encounter"
--- OUTSIDE RECORDS SUMMARY | ~2019-06-13 | XMS | Encounter Summary ---
Demographics + + + | Address | [address] | | | [place] [address] | + + + | Home Phone [...] + | Author | [facility] | | | and Eduardo[place] | + + + | Organization | [facility] | | | and Eduardo[place] | + + + | Address | Unknown | + + + | Phone | Unavailable | + + + Support + + + + + | Name | Relationship | Address | Phone | + + + + + | Poncho Oquendo | ECON | [address] | | | | | [place] | | | | | [address] | | + + + + + | Marta Upton | ECON | [place] | | | | | [address] | | + + + + + Care Team Providers + +------+ + | Care Clinical Product Manager Name | Role | Phone [...] (Primary Dx) | | | | [address] | [place] [address] | | | | | [place] [address] | [phone] | | | | | [phone] | | | +--------+ + + + [...] [address] | | | | | | [place] [address] | | | | | | [phone] | | | | | | | | +--------+---------+ + + + documented as of this encounter Visit Diagnoses + + | Diagnosis | + + | 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
--- OUTSIDE RECORDS SUMMARY | ~2019-06-13 | XMS | Encounter Summary ---
Demographics + + + | Address | [address] | | | [place] [address] | + + + | Home Phone [...] + | Author | [facility] | | | and Eduardo[place] | + + + | Organization | [facility] | | | and [place]ardo[place] | + + + | Address | Unknown | + + + | Phone | Unavailable | + + + Support + + + + + | Name | Relationship | Address | Phone | + + + + + | Poncho Oquendo | ECON | [address] | | | | | [facility] [place] [place] | | | | | [address] | | + + + + + | Marta Upton | ECON | [place] | | | | | [address] | | + + + + + Care Team Providers + +------+ + | Care Lab Tech Name | Role | Phone | [...] + + | 04/26/ | Surgery | [facility] | Pedro Green, | CYSTOSCOPY URETERAL | | 2019 | | REGIONAL SURGERY | DO [address] | STENT | | | | CENTER INTRA OP | [place] [address] | REMOVAL/REPLACEMENT | | | | [address] | [phone] | | | | | [place], [place] | | | | | | [address] | | | | | | [phone] | | | +--------+---------+ + + + [...] lasts more than a day, a fever [id number] (38 C), or trouble urinating. Date Last Reviewed: 02/15/201619992519-4946 [employer]. [address] [place] [address], [place] [address]. All righ ts reserved. This information is [...] out of the urethra Date Last Reviewed: 02/15/201619993927-2685 [employer]. [address] [place] [address]. All righ ts reserved. This information is [...] 2019 | Visit | | DO [address] | | | | | | [place] [address] | | | | | | [phone] | | | | | | | [...]
--- OUTSIDE RECORDS SUMMARY | ~2019-06-13 | XMS | Encounter Summary ---
Demographics + + + | Address | [address] | | | [place] [address] | + + + | Home Phone [...] + | Author | [facility] | | | and [place]ardo[place] | + + + | Organization | [facility] | | | and Eduardoana | + + + | Address | Unknown | + + + | Phone | Unavailable | + + + Support + + + + + | Name | Relationship | Address | Phone | + + + + + | Poncho Oquendo | ECON | [address] | | | | | [place] | | | | | [address] | | + + + + + | Marta Upton | ECON | [place] | | | | | [address] | | + + + + + Care Team Providers + +------+ + | Care Associate Technician Name | Role | Phone | [...] 401 | [facility] | | | | | [facility] | [place] [address] | | | | | [place] [address] | [phone] | | | | | [phone] | | | +--------+ + + + [...] [address] | | | | | | [place] [address] | | | | | | [phone] | | | | | | | [...]
--- OUTSIDE RECORDS SUMMARY | ~2019-06-13 | XMS | Encounter Summary ---
Demographics + + + | Address | [address] | | | [place] [address] | + + + | Home Phone [...] + | Author | [facility] | | | and Eduardoana | + + + | Organization | [facility] | | | and [place]ardo[place] | + + + | Address | Unknown | + + + | Phone | Unavailable | + + + Support + + + + + | Name | Relationship | Address | Phone | + + + + + | Poncho Oquendo | ECON | [address] | | | | | [facility] [place] | | | | | [address] | | + + + + + | Marta Upton | ECON | [place], [place] | | | | | [address] | | + + + + + Care Team Providers + +------+ + | Care Acoustical Tile Drill Press Operator Name | Role | Phone [...] site in | | | | [address] | [place] [address] | gastrointestinal | | | | [place] [address] | [phone] | tract (Primary Dx) | | | | [phone] | | | +--------+ + + + [...] | | | | | [place] [address] | | | | | | [phone] | | | | | | | [...] + + | Performing | Address | [facility] | Phone Number | | Organization | | | | + + + + + | [facility] | [address] | [place] | [phone] | | [facility] | | [address] | | | - LABORATORY | | | | + + + + + | [facility] | [address] | [place] | | | [facility] | | [address], [facility] | | | - [...] | | | | | | [place] [address] | | | | + + + [...] | [address] | [place] [address] | [phone] | + + + + + Lactate [...] + | [facility] | [address] | [place] | [phone] | | [facility] | | [address] | | | - LABORATORY | | | | + + + + + | [facility] | [address] | [place] | | | [facility] | | [address], [facility] | | | - [...] | | FILTRATION | mL/min/1.73m2 | [facility] | | | DUTCH | RATE,ESTIMATED | | MEDICAL | | | | mL/min/1.28o4Hgcc than | | CENTER - | | [...] | | | | | | [facility] | | | | | | MEDICAL [...] + | [facility] | [address] | [place] | [phone] | | [facility] | | [address] | | | - LABORATORY | | | | + + + + + | [facility] | [address] | [place] | | | [facility] | | [address] | | | - LABORATORY [...] + | [facility] | [address] | [place], [place] | [phone] | | [facility] | | [address] | | | - LABORATORY | | | | + + + + + | [facility] | [address] | [place], [place] | | | 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
--- OUTSIDE RECORDS SUMMARY | ~2019-06-13 | XMS | Encounter Summary ---
Demographics + + + | Address | [address] | | | [place] [address] | + + + | Home Phone [...] Author | [facility] | | | and Eduardoana | + + + | Organization | [facility] | | | and Eduardoana | + + + | Address | Unknown | + + + | Phone | Unavailable | + + + Support + + + + + | Name | Relationship | Address | Phone | + + + + + | Poncho Oquendo | ECON | [address] | | | | | [place] | | | | | [address] | | + + + + + | Marta Upton | ECON | [place] | | | | | [address] | | + + + + + Care Team Providers + +------+ + | Care Press Tender Smoke Signal Name | Role | Phone | + [...] | | [facility] CLIN[facility] [address] | [facility] | | | | | [facility] | [place] [address] | | | | | [place] [address] | [phone] | | | | | [phone] | | | +--------+ + + + [...] | | | | | [place] [address] | | | | | | [phone] | | | | | | | | +--------+---------+ + + + documented as of this encounter Visit Diagnoses Not on filedocumented in this encounter"
--- OUTSIDE RECORDS SUMMARY | ~2019-06-13 | XMS | Encounter Summary ---
Demographics + + + | Address | [address] | | | [place] [address] | + + + | Home Phone [...] Providers + +------+ + | Care Receiving Manager Name | Role | Phone | [...] | 2014 | | Clinics at | [place], [place] | | | | | [facility] | [address] | | | | | for Health and | | | | | | [address] | | | | | | [place], | | | | | | [place] [address] | | | | | | [phone] | | | +--------+ + + + [...]
--- OUTSIDE RECORDS SUMMARY | ~2019-06-13 | XMS | Encounter Summary ---
Demographics + + + | Address | [address] | | | [place] [address] | + + + | Home Phone [...] Author | [facility] | | | and Eduardoana | + + + | Organization | [facility] | | | and Eduardoana | + + + | Address | Unknown | + + + | Phone | Unavailable | + + + Support + + + + + | Name | Relationship | Address | Phone | + + + + + | Poncho Oquendo | ECON | [address] | | | | | [facility] [place] [place] | | | | | [address] | | + + + + + | Marta Upton | ECON | [place], [place] | | | | | [address] | | + + + + + Care Team Providers + +------+ + | Care Credit Representative Name | Role | Phone | + +------+ + PCP | Unavailable | + +------+ + Encounter Details +--------+ + + + + | Date | Type | Department | Care Team | Description | +--------+ + + + + | 10/19/ | Hospital | [facility] | | | | 2012 - | Encounter | [facility] | | | | | | CENTER [address] | | | | 11/13/ | | [place] | | | | 2012 | | [address] | | | | | | [phone] | | | +--------+ + + + [...] [address] | | | | | | [place] [address] | | | | | | [phone] | | | | | | | [...] + | [facility] | [address] | [place] | [phone] | | [facility] | | [address] | | | - LABORATORY | | | | + + + + + | [facility] | [address] | [place] | | | [facility] | | [address] | | | - [...] | (formerly Mahad) Advia | | [facility] | | | | Centaur [...] | | | | [address], [place], [place] | | | | | | [address] CLIA: | | | | | | [id number] | | | | + + + + + + + + | Specimen | + + | | + + + + + + + | Performing | Address | City/State/Zipcode | Phone Number | | Organization | | | | + + + + + | [facility] | [address] | [place] | [phone] | | [facility] | | [address] | | | - LABORATORY | | | | + + + + + | [facility] | [address] | [place] | | | [facility] | | [address], [facility] | | | [...] + | [facility] | [address] | [place], [place] | [phone] | | [facility] | | [address] | | | - LABORATORY | | | | + + + + + | [facility] | [address] | [place] | | | [facility] | | [address] [place] [address] | | | - LABORATORY | | [...] [address] | [place] | [phone] | | [facility] | | [address] | | | - LABORATORY | | | | + + + + + | [facility] | [address] | [place] | | | [facility] | | [address] | | | - LABORATORY | | | | + + + + + documented in this encounter Visit Diagnoses Not on filedocumented in this encounter"
--- OUTSIDE RECORDS SUMMARY | ~2019-06-13 | XMS | Encounter Summary ---
Demographics + + + | Address | [address] | | | [place] [address] | + + + | Home Phone [...] + | Author | [facility] | | | and Eduardoana | + + + | Organization | [facility] | | | and Eduardoana | + + + | Address | Unknown | + + + | Phone | Unavailable | + + + Support + + + + + | Name | Relationship | Address | Phone | + + + + + | Poncho Oquendo | ECON | [address] | | | | | [place] | | | | | [address] | | + + + + + | Marta Upton | ECON | [place] | | | | | [address] | | + + + + + Care Team Providers + +------+ + | Care Well Reactivator Operator Name | Role | Phone | [...] | | [facility] 401 | [facility] | | | | | [facility] | [place] [address] | | | | | [place] [address] | [phone] | | | | | [phone] | | | +--------+ + + + [...] | | | | | | [facility] [address] | | | | | | [phone] | | | | | | | | +--------+---------+ + + + documented as of this encounter Visit Diagnoses Not on filedocumented in this encounter"
--- OUTSIDE RECORDS SUMMARY | ~2019-06-13 | XMS | Encounter Summary ---
Demographics + + + | Address | [address] | | | [place] [address] | + + + | Home Phone [...] | Author | [facility] | | | and Eduardoana | + + + | Organization | [facility] | | | and Eduardoana | + + + | Address | Unknown | + + + | Phone | Unavailable | + + + Support + + + + + | Name | Relationship | Address | Phone | + + + + + | Poncho Oquendo | ECON | [address] | | | | | [place] | | | | | [address] | | + + + + + | Marta Upton | ECON | [place] | | | | | [address] | | + + + + + Care Team Providers + +------+ + | Care [address] Service Name | Role | Phone | [...] + | 08/04/ | Orders Only | [facility] | [facility], | Community acquired | | 2018 | | [facility] | Epifanio Soler MD [address] | pneumonia of right | | | | [facility]OGY CLINIC [address] | [address] [place] | lower lobe of lung | | | | [address] [place] | [place] [address] | ([facility]) (Primary Dx) | | | | [place] [address] | [phone] | | | | | [phone] | | | +--------+ + + + [...] [address] | | | | | | [place] [address] | | | | | | [phone] | | | | | | | | +--------+---------+ + + + documented as of this encounter Visit Diagnoses + + | Diagnosis | + + | Community acquired pneumonia of right lower lobe of lung (HCC) - Primary | + + documented in this encounter"
--- OUTSIDE RECORDS SUMMARY | ~2019-06-13 | XMS | Encounter Summary ---
Demographics + + + | Address | [address] | | | [place] [address] | + + + | Home Phone [...] Author | [facility] | | | and Eduardoana | + + + | Organization | [facility] | | | and Eduardoana | + + + | Address | Unknown | + + + | Phone | Unavailable | + + + Support + + + + + | Name | Relationship | Address | Phone | + + + + + | Poncho Oquendo | ECON | [address] | | | | | [place] | | | | | [address] | | + + + + + | Marta Upton | ECON | [place] | | | | | [address] | | + + + + + Care Team Providers + +------+ + | Care Prison Officer Name | Role | Phone | [...] 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, | [place]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 | MD [address] | [place], | | | | | (HCC) | [address] | [place] [address] | | | | | Procedures | [place], | Phone: | | | | | [place] | [place] [address] | [phone] | | | | | 10 MG | Phone: | Fax: | | | | | INJECTION | [phone] | [phone] | | | | | IA | Fax: | | | | | | GEMCITABINE | [phone] | | | | | | HCL | | | | | | | INJECTION, | | | | | | | 200 MG IA | | | | | | | DIPHENHYDRAM | | | | | | | INE HCL | | | | | | | INJECTIO, 50 | | | | | | | MG IA | | | | | | | METHYLPREDNI | | | | | | | SOLONE | | | | | | | INJECTION, | | | | | | | 125 MG IA | | | | | | | FILGASTIM | | | | | | | (ZARXIO) 300 | | | | | | | MCG/0.5ML | | | | | | | SOSY, PER 1 | | | | | | | MCG IA | | | | | | | ONDANSETRON | | | | | | | HCL | | | | | | | INJECTION, 1 | | | | | | | MG IA | | | | | | | DEXAMETHASON | | | | | | | E SODIUM | | | | | | | PHOS, 1 MG | | | | | | | IA | | | | | | | FOSAPREPITAN | | | | | | | T INJECTION, | | | | | | | 1 MG IA | | | | | | | NORMAL | | | | | | | SALINE | | | | | | | SOLUTION | | | | | | | INFUS, 500 | | | | | | | ML IA | | | | | | | NORMAL | | | | | | | SALINE | | | | | | | SOLUTION | | | | | | | INFUS, 250 | | | | | | | ML IA | | | | | | | STERILE | | | | | | | WATER/SALINE | | | | | | | , 10 ML IA | | | | | | | CHEMOTHER, | | | | | | | IV PUSH,EA | | | | | | | ADD DRUG IA | | | | | | | CHEMOTHER, | | | | | | | IV INFUSION, | | | | | | | 1 HR IA | | | | | | | CHEMOTHER, | | | | | | | IV INFUSION, | | | | | | | EA HR IA | | | | | | | CHEMOTHER,NO | | | | | | | N-HORMONE | | | | | | | ANTI-NEOPL, | | | | | | | SUB-Q/IM IA | | | | | | | [...] + + | 08/06/ | Hospital | [facility] | Vladimir Robles, | Gallbladder cancer, | | 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 | + +--------+ + [...] + | [facility] | [address] | [place] | [phone] | | [facility] | | [address] | | | - LABORATORY | | [...] [place] | | | | | | [address] | | | | + + + + + + + + | Specimen | + + | Blood | + + + + + + + | Performing | Address | City/State/Zipcode | Phone Number | | Organization | | | | + + + + + | [facility] | [address] | [place] [address] | [phone] | + + + + + Lactate [...] [address] | [place] | [phone] | | [facility] | | [address] | | | - LABORATORY | | [...] | 0.95 | 0.60 - 1.30 | [facility] | | | | | mg/dL | [facility] | | | | | | MEDICAL | | | | | | CENTER - | | | | | | LABORATORY | | + + + + + + | eGFR if not | >60Comment: GLOMERULAR | >=60 | [facility] | | | | FILTRATION | mL/min/1.73m2 | [facility] | | | [place] | RATE,ESTIMATED | | MEDICAL | | | | mL/min/1.35q1Adke than | | CENTER - | | [...] [address] | [place] | [phone] | | [facility] | | [address] | | | - LABORATORY | | [...] [address] | [place] | [phone] | | [facility] | | [address] | | | - LABORATORY | | [...] [address] | [place] | [phone] | | [facility] | | [address] | | | - LABORATORY | | [...]
--- OUTSIDE RECORDS SUMMARY | ~2019-06-13 | XMS | Encounter Summary ---
Demographics + + + | Address | [address] | | | [place] [address] | + + + | Home Phone [...] Team Providers + +------+ + | Care Heel Cover Softener Name | Role | Phone | + [...] Faria | | | | | | [address] | Ave | | | | | | Rd | Mailcode: | | | | | | [place], [place] | [facility] | | | | | | [address] | for Health | | | | | | Phone: | and Healing, | | | | | | [phone] | Building [address], | | | | | | Fax: | 7th Floor | | | | | | [phone] | [place], [place] | | | | | | | [address] | | | | | | | Phone: | | | | | | | [phone] | | | | | | | Fax: | | | | | | | [phone] | +--------+--------+ + + + + Encounter Details +--------+---------+ + + + | Date | Type | Department | Care Team | Description | +--------+---------+ + + + | 11/01/ | Office | Hematology/Medical | Elva Grey, | Gallbladder cancer | | 2013 | Visit | Oncology at [facility] | [address] | (HCC) (Primary Dx) | | | | [address] | [address] | | | | | Mailcode: CH7M | [place] [address] | | | | | [facility] | [phone] | | | | | and Healing, | | | | | | [facility] 1, 7th | | | | | | Floor [place], [place] | | | | | | [address] | | | | | | [phone] | | | +--------+---------+ + + + [...] negative for malignancy - Adjuvant chemotherapy recommended: Polk/Cap for 4 cycles then restaging - 09/13/12-10/23/12 [...] ultrasound, this was normal. No admission to [facility], had some neupogen shots during her [...] for up to 12 hours in a va 24-hour period. ondansetron ODT 4 mg Oral [...] healthy lifestyle, I did not recommend a va specific supplementation. Return if symptoms worsen or fail to improve. Will have follow up locally documented in [facility] Plan of Treatment Not on filedocumented [...]
--- OUTSIDE RECORDS SUMMARY | ~2019-06-13 | XMS | Encounter Summary ---
Demographics + + + | Address | [address] | | | [place] [address] | + + + | Home Phone [...] + | Author | [facility] | | | and Eduardoana | + + + | Organization | [facility] | | | and Eduardoana | + + + | Address | Unknown | + + + | Phone | Unavailable | + + + Support + + + + + | Name | Relationship | Address | Phone | + + + + + | Poncho Oquendo | ECON | [address] | | | | | [place] | | | | | [address] | | + + + + + | Marta Upton | ECON | [place] | | | | | [address] | | + + + + + Care Team Providers + +------+ + | Care Acid Loader Name | Role | Phone | + [...] HOSPITAL | | | | | [facility] | [place] [address] | | | | | [place] [address] | [phone] | | | | | [phone] | | | +--------+ + + + [...] | | | [facility] [address] | | | | | | [phone] | | | | | | | | +--------+---------+ + + + documented as of this encounter Visit Diagnoses Not on filedocumented in this encounter"
--- OUTSIDE RECORDS SUMMARY | ~2019-06-13 | XMS | Encounter Summary ---
Demographics + + + | Address | [address] | | | [place] [address] | + + + | Home Phone [...] Providers + +------+ + | Care Supervisor Histology Name | Role | Phone | + [...] | | 2013 | | Center at [facility] [address] | MD [address] | | | | | [facility] | [facility] | | | | | and | [place], [place] | | | | | [facility] 2 | [address] | | | | | [place], [place] | [phone] | | | | | [address] | | | | | | [phone] | | | +--------+ + + + [...]
--- OUTSIDE RECORDS SUMMARY | ~2019-06-13 | XMS | Encounter Summary ---
Demographics + + + | Address | [address] | | | [place] [address] | + + + | Home Phone [...] Providers + +------+ + | Care Director Adult Name | Role | Phone | + +------+ + | Tomasa Wagner | PCP | | + +------+ + Reason for Visit + + + | Reason | Comments | + + + | Ultrasound | | + + + Encounter Details +--------+ + + + + | Date | Type | Department | Care Team | Description | +--------+ + + + + | 08/19/ | Telephone | [facility] | [place], Tai, | Ultrasound | | 2012 | | Center at [facility] [address] | [address] | | | | | [address] [facility] | [facility] | | | | | for Health and | [place], [place] | | | | | [facility] | [address] | | | | | [place], [place] | [phone] | | | | | [address] | | | | | | [phone] | | | +--------+ + + + [...]
--- OUTSIDE RECORDS SUMMARY | ~2019-06-13 | XMS | Encounter Summary ---
Demographics + + + | Address | [address] | | | [place] [address] | + + + | Home Phone [...] Team Providers + +------+ + | Care Tracer Lathe Set Up Operator Name | Role [...] [address] | [address] [place], [place] | [address] | | | | | [address] | [place] [address] | | | | | | [phone] | | | | | | | [...]
--- OUTSIDE RECORDS SUMMARY | ~2019-06-13 | XMS | Encounter Summary ---
Demographics + + + | Address | [address] | | | [place] [address] | + + + | Home Phone [...] Team Providers + +------+ + | Care Control Panel Operator Crude Unit Name | Role | Phone | + [...] | neoplasm of | [address]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 | Francesco Surendra | [facility] | | | | | (HCC) | [address] | [address] | | | | | Procedures | [place] | [place] | | | | | CONSULT TO | [address] | [address] Phone: | | | | | HEMATOLOGY / | Phone: | [phone] | | | | | ONCOLOGY | [phone] | Fax: | | | | | PRACTICE | Fax: | [phone] | | | | | | [phone] | | +--------+--------+ + + + + Encounter Details +--------+---------+ + + + | Date | Type | Department | Care Team | Description | +--------+---------+ + + + | 06/26/ | Office | [facility] | Elva Grey, | 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 | Clinics at | [address] | (HCC) (Primary Dx) | | | | [facility] | Road [address] | | | | | for [facility] and | [place] [address] | | | | | Healing [address] | [phone] | | | | | Bienvenido Borges [place], | | | | | | [place] [address] | | | | | | [phone] | | | +--------+---------+ + + + [...] negative for malignancy - Adjuvant chemotherapy recommended: Rodeo/Cap for 4 cycles then restaging - 09/13/12-10/23/12 Chemoradiation with Cape - Treated locally by Dr Najera - CT on 03/18/2014 which noted a left ovarian cyst measuring 5.5 x 5.8 x 2.6 cm - Referred to Dr Henderson in [facility] - 06/07/14 To [place] for Exploratory [...] excised lymph nodes from the gallbladder bed ([id number], slides E3-4). Additionally, immunohistochemical staining on the [...] of benefit - recommend 1st line chemotherapy, Rodeo/Cisplatin would be standard, no clinical trials open at [facility] for 1st line therapy, and would not [...]
--- OUTSIDE RECORDS SUMMARY | ~2019-06-13 | XMS | Encounter Summary ---
Demographics + + + | Address | [address] | | | [place] [address] | + + + | Home Phone [...] Team Providers + +------+ + | Care Oracle Drm Consultant Name | Role | Phone | [...] | 2015 | Encounter | [facility] | [address] | Movement What Is My | | | | Alexis [address] | [facility] | Next Step? | | | | [address] | [place], [place] | | | | | Alexis, [facility] floor | [address] | | | | | [place], [place] | [phone] | | | | | [address] | | | | | | [phone] | | | +--------+ + + + [...]
--- OUTSIDE RECORDS SUMMARY | ~2019-06-13 | XMS | Encounter Summary ---
Demographics + + + | Address | [address] | | | [place] [address] | + + + | Home Phone [...] Team Providers + +------+ + | Care Biomedical Service Engineer Name | Role | Phone | + +------+ + | Tomasa Wagner | PCP | | + +------+ + Encounter Details +--------+ + + + + | Date | Type | Department | Care Team | Description | +--------+ + + + + | 06/09/ | Abstract | Dig[facility]ive Health | Tai Stanton, | | | 2012 | | Center at [facility] [address] | [address] | | | | | [address] [facility] | [facility] | | | | | for Health and | [place], [place] | | | | | [facility], [place] [address] | [address] | | | | | [place], [place] | [phone] | | | | | [address] | | | | | | [phone] | | | +--------+ + + + [...]
--- OUTSIDE RECORDS SUMMARY | ~2019-06-13 | XMS | Encounter Summary ---
Demographics + + + | Address | [address] | | | [place] [address] | + + + | Home Phone [...] + | Author | [facility] | | | and Eduardo[place] | + + + | Organization | [facility] | | | and Eduardo[place] | + + + | Address | Unknown | + + + | Phone | Unavailable | + + + Support + + + + + | Name | Relationship | Address | Phone | + + + + + | Poncho Oquendo | ECON | [address] | | | | | [facility] [place] | | | | | [address] | | + + + + + | Marta Upton | ECON | [place], [place] | | | | | [address] | | + + + + + Care Team Providers + +------+ + | Care Lab Animal Technologist Name | Role | Phone | + +------+ + PCP | Unavailable | + +------+ + Encounter Details +--------+ + + + + | Date | Type | Department | Care Team | Description | +--------+ + + + + | 05/05/ | Hospital | [facility] | Hakan Cherry | | | 2011 | Encounter | MED CTR XRAY [address] | [address] | | | | | [place] | [place], [place] | | | | | [place] [address] | [address] | | | | | [phone] | | | +--------+ + + + [...] | Visit | | DO [address] [facility] | | | | | | [place] [address] | | | | | | [phone] | | | | | | | [...] Performed At | + + + | [facility] Diagnostic Imaging Department | [facility] | | [address] [facility] | [facility] | | PROCEDURE NOTE LUMBAR FACET [...] Transcribed Date/Time: 05/06/2011 17:17 | | | Primer And Powder Canning Leader: <Electronically Signed by Hakan Field | | | MD Dilip> 05/14/11 1336 | | + + + + + | Procedure Note | + + | Edmundo, Rad Conversion - 03/23/2013 4:58 PM [facility] | | Diagnostic Imaging Department [address] [place] [address] | | PROCEDURE NOTE LUMBAR FACET INJECTION, [...] 17:08 | |Transcribed Date/Time: 05/06/2011 17:17 | |Primer And Powder Canning Leader: | |<Electronically Signed by Hakan Cherry MD> [...]
--- OUTSIDE RECORDS SUMMARY | ~2019-06-13 | XMS | Encounter Summary ---
Demographics + + + | Address | [address] | | | [place] [address] | + + + | Home Phone [...] Author | [facility] | | | and Eduardo[place] | + + + | Organization | [facility] | | | and Eduardo[place] | + + + | Address | Unknown | + + + | Phone | Unavailable | + + + Support + + + + + | Name | Relationship | Address | Phone | + + + + + | Poncho Oquendo | ECON | [address] | | | | | [facility] [place] | | | | | [address] | | + + + + + | Marta Upton | ECON | [place] | | | | | [address] | | + + + + + Care Team Providers + +------+ + | Care Dragger Name | Role | Phone | + [...] + + | 05/20/ | Telephone | [facility] | Reinaldo, | Care Coordination | | 2020 | | [facility] | Epifanio Soler MD [address] | | | | | ONCOLOGY CLINIC [address] | [facility] | | | | | W [facility] | [place] [address] | | | | | [place] [address] | [phone] | | | | | [phone] | | | +--------+ + + + [...] | 09/17/ | Office | Urology | Pedor Green, | | | 2019 | Visit | | DO [address] | | | | | | [place] [address] | | | | | | [phone] | | | | | | | | +--------+---------+ + + + documented as of this encounter Visit Diagnoses Not on filedocumented in this encounter"
--- OUTSIDE RECORDS SUMMARY | ~2019-06-13 | XMS | Encounter Summary ---
Demographics + + + | Address | [address] | | | [place] [address] | + + + | Home Phone [...] Team Providers + +------+ + | Care Ultra Sound Technician Name | Role | Phone | + +------+ + | Tomasa Wagner | PCP | | + +------+ + Reason for Visit + + + | Reason | Comments | + + + | Medical Records | [facility] - OUTSIDE RECORDS 06/24/14 Bookmarked Document (notes, labs, | | Review | imaging) | + + + Encounter Details +--------+ + + + + | Date | Type | Department | Care Team | Description | +--------+ + + + + | 06/25/ | Abstract | Digestive Health | Tai Stanton, | Medical Records | | 2015 | | Center at [facility] [address] | MD [address] | Review ([facility] - | | | | [facility] | [facility] | OUTSIDE RECORDS | | | | for Health and | [place], [place] | 06/24/14 Bookmarked | | | | [facility] 2 | [address] | Document (notes, | | | | [place], [place] | [phone] | labs, imaging)) | | | | [address] | | | | | | [phone] | | | +--------+ + + + [...]
--- OUTSIDE RECORDS SUMMARY | ~2019-06-13 | XMS | Encounter Summary ---
Demographics + + + | Address | [address] | | | [place] [address] | + + + | Home Phone [...] + | Author | [facility] | | | and [place]ardo[place] | + + + | Organization | [facility] | | | and [place]ardo[place] | + + + | Address | Unknown | + + + | Phone | Unavailable | + + + Support + + + + + | Name | Relationship | Address | Phone | + + + + + | Poncho Oquendo | ECON | [address] | | | | | [facility] [place] | | | | | [address] | | + + + + + | Marta Upton | ECON | [place] | | | | | [address] | | + + + + + Care Team Providers + +------+ + | Care Jewel Stripper Name | Role | Phone | [...] + + | 05/20/ | Telephone | [facility] | Reinaldo, | Care Coordination | | 2020 | | MED [facility] | Epifanio Soler MD [address] | | | | | ONCOLOGY CLINIC [address] | [facility] | | | | | [facility] | [place] [address] | | | | | [place] [address] | [phone] | | | | | [phone] | | | +--------+ + + + [...] | | | | | [place] [address] | | | | | | [phone] | | | | | | | | +--------+---------+ + + + documented as of this encounter Visit Diagnoses Not on filedocumented in this encounter"
--- OUTSIDE RECORDS SUMMARY | ~2019-06-13 | XMS | Encounter Summary ---
Demographics + + + | Address | [address] | | | [place] [address] | + + + | Home Phone [...] Providers + +------+ + | Care Front Services Agent Name | Role | Phone | [...] | | | Stay [address] | [place], [place] | testing; Pelvic | | | | [address] | [address] | mass; Other | | | | Mailcode: [id number] | [phone] | specified | | | | [facility] | | pre-operative | | | | [address] [place], [place] | | examination | | | | [address] | | | | | | [phone] | | | +--------+---------+ + + + [...] or walk. Surgery check-in location: Admitting - [facility], ninth floor [facility] Surgery Check in Time: The Preoperative [...] it is after office hours, call the [facility] packing line operator at [phone] and ask them to page him or [...] Date RATE 65 04/27/2012 ATRIALRATE 65 04/27/2012 [place] 142 04/27/2012 QRS 86 04/27/2012 QT 398 [...] to this patient's care. RACHAEL NGUYEN MD KNIFE EDGEREMPLOYMENT ADVISOR DEPARTMENT OF MEDICINE DIVISION OF HOSPITAL MEDICINE PREOPERATIVE MEDICINE PROCESSING ASSOCIATE POCKET MAKER [address] [place] [phone] documented in thi s encounter Plan of Treatment Not on filedocumented as of this encounter Procedures + +--------+ + + + | Procedure Name | Priori | Date/Time | Associated Diagnosis | Comments | | | ty | | | | + +--------+ + + + | [place] COLLECTION VENOUS | Routin | 05/28/2014 | [...] [facility] | [address] | [place] [address] | | | SERVICES, | [address] [...] [facility] | [address] | [place] [address] | | | SERVICES, | [address] [...] [facility] | [address] | [place] [address] | | | SAM ALONSO | NEAL [...] | + + + + + | [facility] | [address] | [place] [address] | | | SAM ALONSO | NEAL [...] | + + + + + | [facility] | [address] | [place] [address] | | | SAM ALONSO | NEAL [...] | + + + + + | [address] [employer] | [address] | [place] [address] | | | SERVICES, CORE | [address] [...] [facility] | [address] | [place], [place] | | | DG POINT OF CARE | [address] | [address] | | | TESTS | | | [...]
--- OUTSIDE RECORDS SUMMARY | ~2019-06-13 | XMS | Encounter Summary ---
Demographics + + + | Address | [address] | | | [place] [address] | + + + | Home Phone [...] | Author | [facility] | | | and Eduardo[place] | + + + | Organization | [facility] | | | and Eduardoana | + + + | Address | Unknown | + + + | Phone | Unavailable | + + + Support + + + + + | Name | Relationship | Address | Phone | + + + + + | Poncho Oquendo | ECON | [address] | | | | | [place] | | | | | [address] | | + + + + + | Marta Upton | ECON | [place] | | | | | [address] | | + + + + + Care Team Providers + +------+ + | Care Neurosurgery Spine Physician Name | Role | Phone | + [...] | | | | | Procedures | [address] | [place] | | | | | [place] OFFICE | Phone: | [address] Phone: | | | | | OUTPATIENT | [phone] | [phone] | | | | | VISIT 25 | Fax: | Fax: | | | | | MINUTES | [phone] | [phone] | +--------+--------+ + + + + Encounter Details +--------+ + + + + | Date | Type | Department | Care Team | Description | +--------+ + + + + | 12/17/ | Hospital | [facility] | Reinaldo, | Gallbladder cancer, | | 2015 | Encounter | MED CTR MEDICAL | Chad Soler MD [address] | carcinoma (HCC) | | | | ONCOLOGY CLINIC [address] | [address] | (Primary Dx) | | | | [address] [place] [place] | [place] [address] | | | | | [place] [address] | [phone] | | | | | [phone] | | | +--------+ + + + [...] from the original. Hematology/Oncology Progress Note [facility] Pt. Name/Age/: Aura Upton 54 y.o. 1960 Med. Record Number: [id number] Date of admission: 12/17/2014 Identifying Statement: Aura Upton is a 54 y.o. female from [address] [place] [address] with Recurrent Cholangiocarcinoma. The patient chart and [...] Brandon Garcia March 29, 2012, pathological specimen [id number], analyzed by Dr. Bowers of [facility] and was notable for a poorly-differentiated adenoc arcinoma of the gallbladder. Liver biopsy demonstrated mild portal inflammation. 2. On April 28, 2012, she successfully underwent an R0 resection by Dr. Tai Stanton at [facility], pathological specimen [id number] was notable for the absence of any residual carcinoma within the gallbladder bed. However, 2/8 regional lym ph nodes contained regionally metastatic disease. 3. Consultation by Dr. Elva Grey of the [facility] on May returned the recommendation for adjuvant chemoradiation therapy following [id number] as follows: Capecitabine at 750 mg/m sq [...] staging by Dr. Oziel Casillas of the [facility]. Pathological analysis was notable for [...] with Dr. Elva Grey the [facility] in June 26, 2014 who recommended additional chemotherapy was cisplatin at 75 mg meter squared on day 1 a nd gemcitabine 1250 mg per meter squared on day one and day 8 of acute 21 day cycle for 6-8 cycles. A second opinion was obtained by Dr. Richie Thayer of the [facility] iance who returned the recommendation [...] recommendations [facility] with gemcitabine at 1000 mg per [...] cycles of cisplatin/gemcitabine chemotherapy at the [facility] in [place], [place] on November 29, 2014. 12. Repeat CT scan of the chest, abdomen and pelvis that [facility] on December 17, 2014 demonstrated no [...] will see Dr. Richie Thayer at the [facility]. Review of Systems: Constitutional: Reports that [...] this chart may have been created with [employer] voice recognition software. Occasi onal wrong-word or [...] 2019 | Visit | | DO [address] [facility] | | | | | | [place] [address] | | | | | | [phone] | | | | | | | [...]
--- OUTSIDE RECORDS SUMMARY | ~2019-06-13 | XMS | Encounter Summary ---
Demographics + + + | Address | [address] | | | [place] [address] | + + + | Home Phone [...] | Author | [facility] | | | and Eduardoana | + + + | Organization | [facility] | | | and Eduardoana | + + + | Address | Unknown | + + + | Phone | Unavailable | + + + Support + + + + + | Name | Relationship | Address | Phone | + + + + + | Poncho Oquendo | ECON | [address] | | | | | [facility] [place] [place] | | | | | [address] | | + + + + + | Marta Upton | ECON | [place] | | | | | [address] | | + + + + + Care Team Providers + +------+ + | Care Foundry Tender Name | Role | Phone | [...] + + | 11/29/ | Surgery | [facility] | Pedro Green, | CYSTOSCOPY URETERAL | | 2018 | | [facility] | DO [address] [facility] | STENT stent removal | | | | OPERATING ROOM [address] | [place] [address] | and replacement | | | | [address] | [phone] | | | | | [facility] [place] | | | | | | [address] | | | | | | [phone] | | | +--------+---------+ + + + [...] out of the urethra Date Last Reviewed: 02/15/[id number] [employer]. [address] [place] [address]. All righ ts reserved. This information is [...] on your doctor's advice. Talk to your it technical architect regarding the use of this medicine in children. Special care may be needed. What side effects may I notice from receiving this medicine? Side effects that you should report to your doctor or health child care associate as soon as p ossible: allergic reactions like skin rash, itching or hives, swelling of the face, lips, or tongue blue or purple color of the skin difficulty breathing fever less urine unusual bleeding, bruising unusual tired, weak vomiting yellowing of the eyes or skin Side effects that usually do not require medical attention (report to your doctor or health child care associate if they continue or are bothersome): dark [...] if you have any of these conditions: geutwvt-5-xlxbgrexd dehydrogenase (G6PD) deficiency kidney disease an unusual or allergic reaction to phenazopyridine, other medicines, foods, dyes, or preser vatives or trying to get breast-feeding What should I watch for while using this medicine? Tell your doctor or health child care associate if your symptoms do not improve or [...] sugar in your urine. Talk to [facility] health care provider. NOTE:This sheet is a summary. It may not cover all possible information. If you have questi ons about this medicine, talk to your doctor, pharmacist, or health care provider. Copyright 2019 [employer] Ciprofloxacin tablets Brand Name: Cipro What is [...] information carefully each time. Talk to your it technical architect regarding the use of this medicine in children. Special care may be needed. What side effects may I notice from receiving this medicine? Side effects that you should report to your doctor or health child care associate as soon as p ossible: allergic reactions [...] to your doctor or health child care associate if they continue or are bothersome): dry [...] with your doctor or health child care associate if you get an attack of severe diarrhea, nausea and vomiting, or if you sweat a lot. The loss of too much body fluid can make it haile gerous for you to take this medicine. This medicine may affect blood sugar levels. If you have diabetes, check with your doctor o r health child care associate before you change your diet or the [...] [address] | | | | | | [place] [address] | | | | | | [phone] | | | | | | | [...] | | | | | ([facility]) | | + +--------+ + [...] | | | | | | longer, ajahst-wwu-qqnwl use of | | | | | [...]
--- OUTSIDE RECORDS SUMMARY | ~2019-06-13 | XMS | Encounter Summary ---
Demographics + + + | Address | [address] | | | [place] [address] | + + + | Home Phone [...] + +------+ + | Care Corporate Communications Manager Name | Role | Phone | [...] + + | 06/06/ | Hospital | [facility] 14A [address] | Miguel Seymour, | | | 2015 - | Encounter | [address] | [address] [facility] | | | | | [place], [place] | [address] | | | 06/09/ | | [address] | [place], [place] | | | 2014 | | [phone] | [address] | | | | | | [phone] | | | | | | | [...] DISCHARGE SUMMARY Author: Roger Guadalupe MD PGY1 PREFABRICATED HOUSES TRIMMER Attending Physician: Dr. Henderson Admission Date: 06/06/2014 [...] Get Your Medications You need to pick and shovel man these prescriptions. We sent some of them to a specific pharmacy. Go t o these places to get your medications. [place] [facility] - enoxaparin 40 mg/0.4 mL Syrg [address] [facility] [address] Hours: 8AM-9PM Mon-Fri; 9-5:30PM Sat-Sun You may [...] To contact your provider, please call the [facility] clinic at [phone] during daytime hours. During evening or weekend hours, please call the [facility] paging twx operator at [phone] and ask for the Human Intelligence Oncology staff on-call. Reasons to call the [...] stable Discharging Physician: Roger Guadalupe MD PGY1 PREFABRICATED HOUSES TRIMMER Service Pager: [phone] Attending Physician: Dr. Henderson I saw and [...] assessment and plan. Roger Guadalupe MD PGY1 PREFABRICATED HOUSES TRIMMER Service Pager: [phone] I saw and evaluated the patient. I [...] assistance. Primary service notified. RAGHU DALY MD [facility] [address]A [address] [facility], 4th Floor Mail Code: CH4P [place], [place] [address] Raghu Antony MD - 06/08/2014 [...] and recommendations with primary care team provider sfdc architect/oncology. RAGHU DALY MD BILLING INFORMATION [facility] DEPARTMENT: [id number] Place of Service:- Inpatient Date of Service: 06/08/2014 CSN: [id number] Suggested Modifier: None Suggested CPT: 65865 - Daily mgmt epidural/subarachnoid drug administration Prolonged [...] assessment and plan. Roger Guadalupe MD PGY1 PREFABRICATED HOUSES TRIMMER Service Pager: [phone] I saw and evaluated the patient. I [...] separate note in EPIC). RAGHU DALY MD [facility] [address]A [address] [facility], 4th Floor Mail Code: [address] [address] alika, Raghu Coello MD - 06/07/2014 7:39 AM PDT INPATIENT ADULT PAIN SERVICE NEURAXIAL BLOCK PROGRESS NOTE 06/07/2014 Author: KATHERINE LION MD Pain Service Attending Physician: Raguh Daly MD POD# 1. Status post: ex-lap, [...] care team provider . RAGHU DALY MD [facility] [address]A [address] [facility], 4th Floor Mail Code: CH4P [place], [place] [id number] BILLING INFORMATION [facility] DEPARTMENT: [id number] Place of Service:- Inpatient Date of Service: 06/07/2014 CSN: [id number] Suggested Modifier: GC - Resident Involved Suggested CPT: 85975 - Daily mgmt epidural/subarachnoid drug administration Prolonged [...] note might be different from the [facility] GYNECOLOGY ONCOLOGY INPATIENT PROGRESS NOTE [...] | Abdominal or | | | LAPAROSCOPY (ATTRACTION ATTENDANT | ve | 7:27 AM | pelvic [...] + +--------+ + + + | NON ATTRACTION ATTENDANT CYTOLOGY | Routin | 06/06/2014 | | [...] | + + + + + | [facility] LABOR[facility]ORY | [address] | [place] [address] | | | SERVICES, CORE | PARK [...] | + + + + + | [facility] | [address] | [place] [address] | | | SERVICES, CORE | NEAL [...] | | | LABORATORY | | | THAI | | | SERVICES, | | | [...] the MDRD equation recommended by the | [facility] | | National Kidney Disease [...] | + + + + + | [facility] | [address] | [place] [address] | | | SERVICES, CORE | PARK [...] GWEN GARCIA | [address] | [place] [address] | | | SAM ALONSO | PARK [...] | + + + + + | [facility] | [address] | [place] [address] | | | SERVICES, CORE | PARK [...] | | | LABORATORY | | | THAI | | | SERVICES, | | | [...] | + + + + + | [facility] | [address] | [place] [address] | | | SERVICES, CORE | [address] | | | + + + + + OPERATION RECORD (06/07/2014 8:30 AM PDT) + + | Transcriptions | + + | Miguel Seymour MD - 06/06/2014 12:48 PM PDT Date of Service: 06/06/2014 | | Attending Surgeon: Miguel Seymour MD Bead Forming Machine Set Up Operator(s): | | Poncho Arriola MD. Anesthesia: General [...] 06/06/2014 11:52:24DT: 06/06/2014 12:48:01Job #: | | [id number] DEPARTMENT: [id number] ATTRACTION ATTENDANT ONC KPlace of Service: - | | IPDate of Service: 06/07/2014 : [id number] | | Modifier: NoneSuggested CPT: NoneSuggested Procedure [...] | + + + + + | [facility] | [address] | [place] [address] | | | SERVICES, CORE | NEAL [...] | + + + + + | [facility] | [address] | [place] [address] | | | SERVICES, CORE | PARK [...] | + + + + + | [facility] | [address] | [place] [address] | | | GAVIN, SAM | NEAL [...] [facility] | [address] | [place] [address] | | | SERVICES, CORE | PARK [...] | | | LABORATORY | | | THAI | | | SERVICES, | | | [...] | + + + + + | [facility] | [address] | [place] [address] | | | SERVICES, CORE | [address] | | | + + + + + NON ATTRACTION ATTENDANT CYTOLOGY (06/06/2014) + + + + + + | Component | Value | Ref Range | Performed | Pathologist | | | | | At | Signature | + + + + + + | NON-ATTRACTION ATTENDANT | SOURCE OF SPECIMEN:A | | [facility] [...] San | | | | | | CT(ASCP)Drag Seiner | | | | | | Electronically [...] | [facility] | [address] | [place] [address] | | | PATHOLOGY | [address] [...] | | | | | | corresponding [id number] | | | | | | B: [...] bed | | | | | | ([id number], slides E3-4). | | | | | [...] necessary | | | | | | [facility] medical | | | | | | [...] | | | | | | s/pchemoXRT ([id number], | | | | | | [id number]); now with | | | | | [...] | | | | | | | Budget Technician | | | | | | [...] identified. | | | | | | Budget Technician | | | | | | [...] residueB3-6, | | | | | | access services representative sections | | | | | | of #1 external | | | | | | excrescenceB7-8, #2 | | | | | | external | | | | | | excrescenceB9-10, entire | | | | | | #3 external | | | | | | [id number], | | | | | | access services representative sections | | | | | | of del rio-brown | | | | | | excrescences from inner | | | | | | cyst [id number], | | | | | | additional sections of | | | | | | xxwdfP07, access services representative | | | | | [...] endomyometriumD5, | | | | | | access services representative sections | | | | | | of right ovaryD6-9, | | | | | | access services representative sections | | | | | | of external ovarian | | | | | | [id number], | | | | | | access services representative sections | | | | [...] | [facility] | [address] | [place] [address] | | | PATHOLOGY | [address] [...]
--- OUTSIDE RECORDS SUMMARY | ~2019-06-13 | XMS | Encounter Summary ---
Demographics + + + | Address | [address] | | | [place] [address] | + + + | Home Phone [...] Team Providers + +------+ + | Care Per Diem Rn Name | Role | Phone | [...] | | | Reconstructive | Velma [place], | | | | | Services at [facility] | [place] [address] | | | | | [address] | [phone] | | | | | Mailcode: 5E | | | | | | [facility] | | | | | | and Healing, | | | | | | Building | | | | | | [place], [place] | | | | | | [address] | | | | | | [phone] | | | +--------+ + + + [...]
--- OUTSIDE RECORDS SUMMARY | ~2019-06-13 | XMS | Encounter Summary ---
Demographics + + + | Address | [address] | | | [place] [address] | + + + | Home Phone [...] | [facility] [place] | | | and [place] | + + + | Organization | [facility] | | | and [place] | + + + | Address | Unknown | + + + | Phone | Unavailable | + + + Support + + + + + | Name | Relationship | Address | Phone | + + + + + | Poncho Oquendo | ECON | [address] | | | | | [place] | | | | | [address] | | + + + + + | Marta Upton | ECON | [place] | | | | | [address] | | + + + + + Care Team Providers + +------+ + | Care Broke Beater Machine Operator Name | Role | Phone [...] 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, | [place]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 | MD [address] | [place], | | | | | (HCC) | [address] | [place] [address] | | | | | Procedures | [place], | Phone: | | | | | [place] | [place] [address] | [phone] | | | | | DIPHENHYDRAM | Phone: | Fax: | | | | | INE HCL | [phone] | [phone] | | | | | INJECTIO, [address] | Fax: | | | | | | [place] | [phone] | | | | | | O[place]SETRON [...] | 05/21/ | Hospital | [facility] | Mathieu Langford | Gallbladder cancer, | | 2017 | Encounter | MED CTR CHEMO | MD Epifanio [address] | carcinoma (HCC) | | | | INFUSION [address] | [address] [place] | | | | | [place], | [place] [address] | | | | | [place] [address] | [phone] | | | | | [phone] | | | +--------+ + + + [...] [address] | | | | | | [place] [address] | | | | | | [phone] | | | | | | | [...]
--- OUTSIDE RECORDS SUMMARY | ~2019-06-13 | XMS | Encounter Summary ---
Demographics + + + | Address | [address] | | | [place] [address] | + + + | Home Phone [...] + | Author | [facility] | | | and [place] | + + + | Organization | [facility] | | | and [place] | + + + | Address | Unknown | + + + | Phone | Unavailable | + + + Support + + + + + | Name | Relationship | Address | Phone | + + + + + | Poncho Oquendo | ECON | [address] | | | | | [facility] [place] | | | | | [address] | | + + + + + | Marta Upton | ECON | [place] | | | | | [id number] | | + + + + + Care Team Providers + +------+ + | Care Vacuum Kettle Cook Name | Role | Phone | [...] + + | 04/26/ | Surgery | [facility] | Pedro Green, | CYSTOSCOPY URETERAL | | 2019 | | REGIONAL SURGERY | DO [address] | STENT | | | | CENTER INTRA OP | [place] [address] | REMOVAL/REPLACEMENT | | | | [address] | [phone] | | | | | [place], [place] | | | | | | [address] | | | | | | [phone] | | | +--------+---------+ + + + [...] lasts more than a day, a fever [id number] (38 C), or trouble urinating. Date Last Reviewed: 02/15/201619992538-1466 [employer]. [address] [place] [address], [place] [address]. All righ ts reserved. This information is [...] out of the urethra Date Last Reviewed: 02/15/201619993229-8823 [employer]. [address] [place] [address]. All righ ts reserved. This information is [...] 2019 | Visit | | DO [address] [facility] | | | | | | [place] [address] | | | | | | [phone] | | | | | | | [...]
--- OUTSIDE RECORDS SUMMARY | ~2019-06-13 | XMS | Encounter Summary ---
Demographics + + + | Address | [address] | | | [place] [address] | + + + | Home Phone [...] Author | [facility] [place] | | | and [place] | + + + | Organization | [facility] | | | and [place] | + + + | Address | Unknown | + + + | Phone | Unavailable | + + + Support + + + + + | Name | Relationship | Address | Phone | + + + + + | Poncho Oquendo | ECON | [address] | | | | | [place] | | | | | [address] | | + + + + + | Marta Upton | ECON | [place] | | | | | [address] | | + + + + + Care Team Providers + +------+ + | Care Signal Processing Engineer Name | Role | Phone | + +------+ + | Valeriy Carmona DO | PCP | | + +------+ + Encounter Details +--------+ + + + + | Date | Type | Department | Care Team | Description | +--------+ + + + + | 03/05/ | Hospital | [facility] | Reinaldo, | Mass of breast, | | 2017 | Encounter | MED CTR ULTRASOUND | Epifanio Soler MD [address] | right | | | | [address] [place] | [address] [place] | | | | | [place], [place] | [place] [address] | | | | | [address] | [phone] | | | | | [phone] | | | | | | | [...] [address] | | | | | | [place] [address] | | | | | | [phone] | | | | | | | [...] BREAST LIMITED RIGHT 03/05/2016 1:00 PM EXAM: [facility] | [facility] | | DIAGNOSTIC [...] LIMITED RIGHT 03/05/2016 1:00 | | PMEXAM: [facility] DIAGNOSTIC RIGHT dated 03/05/2016 12:50 [...]
--- OUTSIDE RECORDS SUMMARY | ~2019-06-13 | XMS | Encounter Summary ---
Demographics + + + | Address | [address] | | | [place] [address] | + + + | Home Phone [...] Providers + +------+ + | Care Acid Filler Name | Role | Phone | + [...] | | | | | [address] | | | | | | | [facility] | | | | | | | for Health | | | | | | | and Healing, | | | | | | | Building [address] | | | | | | | [place], [place] | | | | | | | [address] | | | | | | | Phone: | | | | | | | [phone] | | | | | | | Fax: | | | | | | | [phone] | +--------+--------+ + + + + Encounter Details +--------+---------+ + + + | Date | Type | Department | Care Team | Description | +--------+---------+ + + + | 11/01/ | Office | Digestive Health | Tai Stanton, | Gallbladder | | 2012 | Visit | Center at [facility] [address] | MD [address] | carcinoma (HCC) | | | | [address] [facility] | [address] | (Primary Dx) | | | | for Health and | [place], [place] | | | | | [facility] [address] | [address] | | | | | [place], [place] | [phone] | | | | | [address] | | | | | | [phone] | | | +--------+---------+ + + + [...] the resident s note. Tai Stanton M.D. [employer] ([facility]) Professor and Vice-Tailor Garment Fitter of Surgery The [facility] Chair for Pancreatic Disease Research Pancreatic/ HepatoBiliary and Foregut Working Groups Office email: [email or web address] Smitha Ngo Md - 11/01/2012 2:59 PM [...] primary oncologist (plan for survellence imaging in [facility]) -- Return to surgery clinic as needed Dr. Stanton has seen and examined the patient and agrees with the above plan. 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
--- OUTSIDE RECORDS SUMMARY | ~2019-06-13 | XMS | Encounter Summary ---
Demographics + + + | Address | [address] | | | [place] [address] | + + + | Home Phone [...] Team Providers + +------+ + | Care Sole Blacker Name | Role | Phone | + +------+ + | Prudencio Isaac MD | PCP | | + +------+ + Encounter Details +--------+ + + + + | Date | Type | Department | Care Team | Description | +--------+ + + + + | 05/11/ | Telephone | Digestive Health | Tai Stanton, | | | 2012 | | Center at [facility] [address] | [address] | | | | | [address] [facility] | [facility] | | | | | for [facility] and | [place], [place] | | | | | [facility], [place] [address] | [address] | | | | | [place], [place] | [phone] | | | | | [address] | | | | | | [phone] | | | +--------+ + + + [...]
--- OUTSIDE RECORDS SUMMARY | ~2019-06-13 | XMS | Encounter Summary ---
Demographics + + + | Address | [address] | | | [place] [address] | + + + | Home Phone [...] | Author | [facility] | | | and [place] | + + + | Organization | [facility] | | | and [place] | + + + | Address | Unknown | + + + | Phone | Unavailable | + + + Support + + + + + | Name | Relationship | Address | Phone | + + + + + | Poncho Oquendo | ECON | [address] | | | | | [place] | | | | | [address] | | + + + + + | Marta Upton | ECON | [place] | | | | | [address] | | + + + + + Care Team Providers + +------+ + | Care Group Sales Coordinator Name | Role | Phone [...] | Carcinoma | Reinaldo, | [place] | | | | | of gall | Epifanio C, | [place], | | | | | bladder | MD [address] | [place] [address] | | | | | (HCC) | [address] | Phone: | | | | | Procedures | [place], | [phone] | | | | | CT Chest | [place] [address] | Fax: | | | | | Abdomen | Phone: | [phone] | | | | | Pelvis w | [phone] | | | | | | Contrast | Fax: | | | | | | | [phone] | | +--------+--------+ + + + + [...] | Carcinoma | Reinaldo, | [place] | | | | | of gall | Epifanio C, | [place], | | | | | bladder | MD [address] | [place] [address] | | | | | (HCC) | [address] | Phone: | | | | | Procedures | [place], | [phone] | | | | | CT Chest | [place] [address] | Fax: | | | | | Abdomen | Phone: | [phone] | | | | | Pelvis w | [phone] | | | | | | Contrast | Fax: | | | | | | | [phone] | | +--------+--------+ + + + + Encounter Details +--------+ + + + + | Date | Type | Department | Care Team | Description | +--------+ + + + + | 12/17/ | Hospital | [facility] | Reinaldo, | Carcinoma of gall | | 2015 | Encounter | MED CTR CT [address] | Epifanio Soler MD [address] | bladder (HCC) | | | | [place], | [address] [place] | | | | | [place] [address] | [place] [address] | | | | | [phone] | [phone] | | | | | | | [...] [address] | | | | | | [place] [address] | | | | | | [phone] | | | | | | | [...] intravenous administration of 100 mL | | [id number] contrast. Oral contrast was administered. Multiplanar reformatted [...]
--- OUTSIDE RECORDS SUMMARY | ~2019-06-13 | XMS | Encounter Summary ---
Demographics + + + | Address | [address] | | | [place] [address] | + + + | Home Phone [...] | Author | [facility] | | | and [place] | + + + | Organization | [facility] | | | and [place] | + + + | Address | Unknown | + + + | Phone | Unavailable | + + + Support + + + + + | Name | Relationship | Address | Phone | + + + + + | Poncho Oquendo | ECON | [address] | | | | | [place] | | | | | [address] | | + + + + + | Marta Upton | ECON | [place] | | | | | [address] | | + + + + + Care Team Providers + +------+ + | Care Cloth Feeder Name | Role | Phone | [...] [place] | | | | | [address] [place] | [place] [address] | | | | | [place] [address] | [phone] | | | | | [phone] | | | +--------+ + + + [...] [address] | | | | | | [place] [address] | | | | | | [phone] | | | | | | | | +--------+---------+ + + + documented as of this encounter Visit Diagnoses + + | Diagnosis | + + | 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
--- OUTSIDE RECORDS SUMMARY | ~2019-06-13 | XMS | Encounter Summary ---
Demographics + + + | Address | [address] | | | [place] [address] | + + + | Home Phone [...] Providers + +------+ + | Care Marine Erector Name | Role | Phone | + [...] Pharmacy | | | | | | [address] | | | | | | [place], [place] | | | | | | [address] | | | | | | [phone] | | | +--------+ + + + [...]
--- OUTSIDE RECORDS SUMMARY | ~2019-06-13 | XMS | Encounter Summary ---
Demographics + + + | Address | [address] | | | [place] [address] | + + + | Home Phone [...] Team Providers + +------+ + | Care Vmware Consultant Name | Role | Phone | [...] [facility] [address] | [address] | | | | | [address] [facility] | [facility] | | | | | for [facility] and | [place], [place] | | | | | [facility], [place] [address] | [address] | | | | | [place], [place] | [phone] | | | | | [address] | | | | | | [phone] | | | +--------+ + + + [...]
--- OUTSIDE RECORDS SUMMARY | ~2019-06-13 | XMS | Encounter Summary ---
Demographics + + + | Address | [address] | | | [place] [address] | + + + | Home Phone [...] + | Author | [facility] | | | and [place] | + + + | Organization | [facility] | | | and [place] | + + + | Address | Unknown | + + + | Phone | Unavailable | + + + Support + + + + + | Name | Relationship | Address | Phone | + + + + + | Poncho Oquendo | ECON | [address] | | | | | [place] | | | | | [address] | | + + + + + | Marta Upton | ECON | [place] | | | | | [address] | | + + + + + Care Team Providers + +------+ + | Care Hand Turner Name | Role | Phone | [...] | | Malignant | Reinaldo, | [place] | | | | | 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, | [place], | | | | | extrahepatic | MD [address] | [place] [address] | | | | | bile ducts | [address] | Phone: | | | | | Procedures | [place], | [phone] | | | | | CT Abdomen | [place] [address] | Fax: | | | | | Pelvis w | Phone: | [phone] | | | | | Contrast | [phone] | | | | | | | Fax: | | | | | | | [phone] | | +--------+--------+ + + + + [...] | | Malignant | Reinaldo, | [place] | | | | | neoplasm of | Epifanio Soler, | [place], | | | | | extrahepatic | MD [address] | [place] [address] | | | | | bile ducts | [address] | Phone: | | | | | Procedures | [place], | [phone] | | | | | [place] Abdomen | [place] [address] | Fax: | | | | | Pelvis w | Phone: | [phone] | | | | | Contrast | [phone] | | | | | | | Fax: | | | | | | | [phone] | | +--------+--------+ + + + + Encounter Details +--------+ + + + + | Date | Type | Department | Care Team | Description | +--------+ + + + + | 09/25/ | Hospital | [facility] | Reinaldo, | Malignant neoplasm | | 2014 | Encounter | MED CTR [address] | Epifanio Soler MD [address] | of extrahepatic bile | | | | [place], | [address] [place] | ducts (HCC) | | | | [place] [address] | [place] [address] | | | | | [phone] | [phone] | | | | | | | [...] [address] | | | | | | [facility] [address] | | | | | | [phone] | | | | | | | [...] + | MISCELLANEOUS LAB | | | [phone] | + +---------+ + + | MISCELANIOUS LAB | | | [phone] | + +---------+ + + documented in [...]
--- OUTSIDE RECORDS SUMMARY | ~2019-06-13 | XMS | Encounter Summary ---
Demographics + + + | Address | [address] | | | [place] [address] | + + + | Home Phone [...] Author | [facility] | | | and Eduardoana | + + + | Organization | [facility] | | | and Eduardoana | + + + | Address | Unknown | + + + | Phone | Unavailable | + + + Support + + + + + | Name | Relationship | Address | Phone | + + + + + | Poncho Oquendo | ECON | [address] | | | | | [place] | | | | | [address] | | + + + + + | Marta Upton | ECON | [place] | | | | | [address] | | + + + + + Care Team Providers + +------+ + | Care Farm Truck Driver Name | Role | Phone | + +------+ + | Valeriy Carmona DO | PCP | | + +------+ + Encounter Details +--------+ + + + + | Date | Type | Department | Care Team | Description | +--------+ + + + + | 03/05/ | Hospital | [facility] | Reinaldo, | Mass of breast, | | 2017 | Encounter | MED CTR ULTRASOUND | Epifanio Soler MD [address] | right | | | | [address] [place] | [address] [place] | | | | | [place], [place] | [place] [address] | | | | | [address] | [phone] | | | | | [phone] | | | | | | | [...] [address] | | | | | | [place] [address] | | | | | | [phone] | | | | | | | [...] BREAST LIMITED RIGHT 03/05/2016 1:00 PM EXAM: [facility] | [facility] | | [...] LIMITED RIGHT 03/05/2016 1:00 | | PMEXAM: [facility] DIAGNOSTIC RIGHT dated 03/05/2016 12:50 [...]
--- OUTSIDE RECORDS SUMMARY | ~2019-06-13 | XMS | Encounter Summary ---
Demographics + + + | Address | [address] | | | [place] [address] | + + + | Home Phone [...] Team Providers + +------+ + | Care Recruiter Manager Name | Role | Phone | [...] Pharmacy | | | | | | [address] | | | | | | [place], [place] | | | | | | [address] | | | | | | [phone] | | | +--------+ + + + [...]
--- OUTSIDE RECORDS SUMMARY | ~2019-06-13 | XMS | Encounter Summary ---
Demographics + + + | Address | [address] | | | [place] [address] | + + + | Home Phone [...] Author | [facility] | | | and Eduardoana | + + + | Organization | [facility] | | | and Eduardoana | + + + | Address | Unknown | + + + | Phone | Unavailable | + + + Support + + + + + | Name | Relationship | Address | Phone | + + + + + | Poncho Oquendo | ECON | [address] | | | | | [place] | | | | | [address] | | + + + + + | Marta Upton | ECON | [place] | | | | | [address] | | + + + + + Care Team Providers + +------+ + | Care Senior Bioinformatics Scientist Name | Role | Phone | [...] Required | | Cholangiocar | [address] | Services [address] | | | | | cinoma (HCC) | [place] | [address] | | | | | | [place], [place] | [place], | | | | | | [address] | [place] [address] | | | | | | Phone: | Phone: | | | | | | [phone] | [phone] | | | | | | Fax: | Fax: | | | | | | [phone] | [phone] | +--------+ + + + + + [...] | | | | | | [address] [place], | | | | | | [place] [address] | | | | | | [phone] | | | +--------+ + + + [...] [address] | | | | | | [place] [address] | | | | | | [phone] | | | | | | | [...] Nutrition | Referral | e | ([facility]) | | | Services | | | | | + + +--------+ + + documented as of this encounter Visit Diagnoses + + | Diagnosis | + + | 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
--- OUTSIDE RECORDS SUMMARY | ~2019-06-13 | XMS | Encounter Summary ---
Demographics + + + | Address | [address] | | | [place] [address] | + + + | Home Phone [...] Team Providers + +------+ + | Care Mixer Slagman Name | Role | Phone | + [...] | neoplasm of | [address]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 | Francesco Surendra | [facility] | | | | | (HCC) | [address] | [address] | | | | | Procedures | [employer] [employer], [place] | [place] [employer] | | | | | CONSULT TO | [address] | [address] Phone: | | | | | HEMATOLOGY / | Phone: | [phone] | | | | | ONCOLOGY | [phone] | Fax: | | | | | PRACTICE | Fax: | [phone] | | | | | | [phone] | | +--------+--------+ + + + + Encounter Details +--------+---------+ + + + | Date | Type | Department | Care Team | Description | +--------+---------+ + + + | 06/26/ | Office | [facility] | Elva Grey, | 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 | Clinics at | [address] | (HCC) (Primary Dx) | | | | [facility] | Road [address] | | | | | for [facility] and | [place] [address] | | | | | Healing [address] | [phone] | | | | | [address] [place], | | | | | | [place] [address] | | | | | | [phone] | | | +--------+---------+ + + + [...] negative for malignancy - Adjuvant chemotherapy recommended: [place]/Cap for 4 cycles then restaging - 09/13/12-10/23/12 Chemoradiation with Cape - Treated locally by Dr Najera - CT on 03/18/2014 which noted a left ovarian cyst measuring 5.5 x 5.8 x 2.6 cm - Referred to Dr Henderson in [facility] - 06/07/14 To [place] for Exploratory [...] excised lymph nodes from the gallbladder bed ([id number], slides E3-4). Additionally, immunohistochemical staining on the [...] of benefit - recommend 1st line chemotherapy, [place]/Cisplatin would be standard, no clinical trials open at [facility] for 1st line therapy, and would not [...]
--- OUTSIDE RECORDS SUMMARY | ~2019-06-13 | XMS | Encounter Summary ---
Demographics + + + | Address | [address] | | | [place] [address] | + + + | Home Phone | | + + + | Preferred Language | Unknown | + + + | Marital Status | Single | + + + | Mormon Affiliation | NON | + + + [...] Team Providers + +------+ + | Care Tavern Car Attendant Name | Role | Phone | [...] | | | | | Procedures | [place], [place] | [place], [place] | | | | | CONSULT TO | [address] | [address] | | | | | ENT / FACIAL | Phone: | Phone: | | | | | PLASTIC | [phone] | [phone] | | | | | SURGERY | Fax: | Fax: | | | | | | [phone] | [phone] | +--------+--------+ + + + + Encounter [...] | | | | [address] [place], | | | | | Services at [facility] | [place] [address] | | | | | [address] | | | | | | Mailcode: CH5E | | | | | | [facility] | | | | | | and Healing, | | | | | | Building 1, 5th | | | | | | Floor [place], [place] | | | | | | [address] | | | | | | [phone] | | | +--------+---------+ + + + [...] BTL Allergies: nkda Social History: Lives in [place]. Past smoking history, none now. No alcohol [...] wishes to sc hedule. Jose Olivia MD Shearer Screen Measurer And Trimmer Facial Plastic and Reconstructive Surgery Department of Otolaryngology/Head and Neck Surgery [employer] [facility] Email - [email or web address] documented in this encounter Plan of Treatment Not on filedocumented as of this encounter Visit Diagnoses + + | Diagnosis | + + | Nasal septal defect - Primary Other diseases of nasal cavity and sinuses | + + documented in this encounter"
--- OUTSIDE RECORDS SUMMARY | ~2019-06-13 | XMS | Encounter Summary ---
Demographics + + + | Address | [address] | | | [place] [address] | + + + | Home Phone [...] Team Providers + +------+ + | Care Mixing Plant Operator Name | Role | Phone | + +------+ + | Tomasa Wagner | PCP | | + +------+ + Encounter Details +--------+ + + + + | Date | Type | Department | Care Team | Description | +--------+ + + + + | 08/22/ | Telephone | Digestive Health | Tai Stanton, | | | 2012 | | Center at [facility] [address] | [address] | | | | | [address] [facility] | [facility] | | | | | for [facility] and | [place], [place] | | | | | [facility] [place] [address] | [address] | | | | | [place], [place] | [phone] | | | | | [address] | | | | | | [phone] | | | +--------+ + + + [...]
--- OUTSIDE RECORDS SUMMARY | ~2019-06-13 | XMS | Encounter Summary ---
Demographics + + + | Address | [address] | | | [place] [address] | + + + | Home Phone [...] Author | [facility] | | | and Eduardoana | + + + | Organization | [facility] | | | and Eduardoana | + + + | Address | Unknown | + + + | Phone | Unavailable | + + + Support + + + + + | Name | Relationship | Address | Phone | + + + + + | Poncho Oquendo | ECON | [address] | | | | | [place] | | | | | [address] | | + + + + + | Marta Upton | ECON | [place] | | | | | [address] | | + + + + + Care Team Providers + +------+ + | Care City Distribution Clerk Name | Role | Phone [...] | | | ONCOLOGY CLINIC [address] | [facility] | | | | | [facility] | [place] [address] | | | | | [place] [address] | [phone] | | | | | [phone] | | | +--------+ + + + [...] | | | [facility] [address] | | | | | | [phone] | | | | | | | | +--------+---------+ + + + documented as of this encounter Visit Diagnoses Not on filedocumented in this encounter"
--- OUTSIDE RECORDS SUMMARY | ~2019-06-13 | XMS | Encounter Summary ---
Demographics + + + | Address | [address] | | | [place] [address] | + + + | Home Phone [...] | Author | [facility] | | | and Eduardoana | + + + | Organization | [facility] | | | and Eduardoana | + + + | Address | Unknown | + + + | Phone | Unavailable | + + + Support + + + + + | Name | Relationship | Address | Phone | + + + + + | Poncho Oquendo | ECON | [address] | | | | | [place] | | | | | [address] | | + + + + + | Marta Upton | ECON | [place] | | | | | [address] | | + + + + + Care Team Providers + +------+ + | Care Organization Development Consultant Name | Role | Phone | + +------+ + | Valeriy Carmona DO | PCP | | + +------+ + Encounter Details +--------+ + + + + | Date | Type | Department | Care Team | Description | +--------+ + + + + | 12/17/ | Hospital | [facility] | [facility], | Gallbladder cancer, | | 2015 | Encounter | MED CTR CHEMO | Epifanio Soler MD [address] | carcinoma (HCC) | | | | INFUSION [address] [place] | (Primary Dx); | | | | [address] [place], | [place] [address] | Carcinoma of gall | | | | [place] [address] | [phone] | bladder (HCC); | | | | [phone] | | Neoplasm related | | | [...] [address] | | | | | | [place] [address] | | | | | | [phone] | | | | | | | [...] [address] | [place] | [phone] | | [facility] | | [address] | | | - LABORATORY | | [...] | 0.66 | 0.60 - 1.30 | [facility] | | | | | [...] | | MEDICAL | | | | mL/min/1.96a6Xlrj than | | CENTER - | | [...] [address] | [place] | [phone] | | [facility] | | [address] | | | - LABORATORY | | [...] [address] | [place] | [phone] | | [facility] | | [address] | | | - LABORATORY | | [...] | | | | | | [place] [address] | | | | + + + + + + + + | Specimen | + + | Blood specimen | | (specimen) | + + + + + + + | Performing | Address | City/State/Zipcode | Phone Number | | Organization | | | | + + + + + | [facility] | [address] | [place] [address] | [phone] | + + + + + [place] [...] + | [facility] | [address] | [place] | [phone] | | [facility] | | [address] | | | - LABORATORY | | [...]
--- OUTSIDE RECORDS SUMMARY | ~2019-06-13 | XMS | Encounter Summary ---
Demographics + + + | Address | [address] | | | [place] [address] | + + + | Home Phone [...] Team Providers + +------+ + | Care District Court Bailiff Name | Role | Phone | + +------+ + PCP | Unavailable | + +------+ + Encounter Details +--------+ + + + + | Date | Type | Department | Care Team | Description | +--------+ + + + + | 04/07/ | Abstract | Digestive Health | Tai Stanton, | | | 2012 | | Center [place] [address] [address] | [address] | | | | | [address] [facility] | [facility] | | | | | for Health and | [place], [place] | | | | | [facility] | [address] | | | | | [place], [place] | [phone] | | | | | [address] | | | | | | [phone] | | | +--------+ + + + [...]
--- OUTSIDE RECORDS SUMMARY | ~2019-06-13 | XMS | Encounter Summary ---
Demographics + + + | Address | [address] | | | [place] [address] | + + + | Home Phone [...] + | Author | [facility] | | | and Eduardoana | + + + | Organization | [facility] | | | and Eduardoana | + + + | Address | Unknown | + + + | Phone | Unavailable | + + + Support + + + + + | Name | Relationship | Address | Phone | + + + + + | Poncho Oquendo | ECON | [address] | | | | | [place] | | | | | [address] | | + + + + + | Marta Upton | ECON | [place] | | | | | [address] | | + + + + + Care Team Providers + +------+ + | Care Wire Inspector Name | Role | Phone | [...] [address] [place] | | | | | [place] [place], | [place] [address] | | | | | [place] [address] | [phone] | | | | | [phone] | | | +--------+ + + + [...] [address] | | | | | | [place] [address] | | | | | | [phone] | | | | | | | | +--------+---------+ + + + documented as of this encounter Visit Diagnoses + + | Diagnosis | + + | Gallbladder cancer, carcinoma (HCC) Malignant neoplasm of gallbladder | + + documented in this encounter"
--- OUTSIDE RECORDS SUMMARY | ~2019-06-13 | XMS | Encounter Summary ---
Demographics + + + | Address | [address] | | | [place] [address] | + + + | Home Phone [...] Team Providers + +------+ + | Care Warble Saw Operator Name | Role | Phone [...] Rd | | | | | | [place], [place] | | | | | | [address] | | | +--------+ + + + [...]
--- OUTSIDE RECORDS SUMMARY | ~2019-06-13 | XMS | Encounter Summary ---
Demographics + + + | Address | [address] | | | [place] [address] | + + + | Home Phone [...] Team Providers + +------+ + | Care Motion Pictures Cartoonist Name | Role | Phone | + [...] Francesco | | | | | at [facility] | [facility] | | | | | [address] | [place] [address] | | | | | [address] | | | | | | [place], 2nd floor | | | | | | [place], [place] | | | | | | [address] | | | | | | [phone] | | | +--------+ + + + [...] view image for the detailed interpretation from [facility] results. | CARDIOLOGY | + + + + + + + + | Performing | Address | City/State/Zipcode | Phone Number | | Organization | | | | + + + + + | [facility] | [address] | [place], [place] | | | CARDIOLOGY | [address] | [address] | | + + + + + documented in this encounter Visit Diagnoses Not on filedocumented in this encounter
--- OUTSIDE RECORDS SUMMARY | ~2019-06-13 | XMS | Encounter Summary ---
Demographics + + + | Address | [address] | | | [place] [address] | + + + | Home Phone [...] | [facility] | | | and Eduardoana | + + + | Organization | [facility] | | | and Eduardoana | + + + | Address | Unknown | + + + | Phone | Unavailable | + + + Support + + + + + | Name | Relationship | Address | Phone | + + + + + | Poncho Oquendo | ECON | [address] | | | | | [place] | | | | | [address] | | + + + + + | Marta Upton | ECON | [place] | | | | | [address] | | + + + + + Care Team Providers + +------+ + | Care Application Technician Name | Role | Phone | [...] [place] | | | | | [address] [place] | [place] [address] | | | | | [place] [address] | [phone] | | | | | [phone] | | | +--------+ + + + [...] [address] | | | | | | [place] [address] | | | | | | [phone] | | | | | | | | +--------+---------+ + + + documented as of this encounter Visit Diagnoses + + | Diagnosis | + + | Gallbladder cancer, 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
--- OUTSIDE RECORDS SUMMARY | ~2019-06-13 | XMS | Encounter Summary ---
Demographics + + + | Address | [address] | | | [place] [address] | + + + | Home Phone [...] + | Author | [facility] | | | and Eduardoana | + + + | Organization | [facility] | | | and Eduardoana | + + + | Address | Unknown | + + + | Phone | Unavailable | + + + Support + + + + + | Name | Relationship | Address | Phone | + + + + + | Poncho Oquendo | ECON | [address] | | | | | [facility] [place] | | | | | [address] | | + + + + + | Marta Upton | ECON | [place], [place] | | | | | [address] | | + + + + + Care Team Providers + +------+ + | Care Pension Fund Manager Name | Role | Phone | [...] [address] | | | | | [address] [facility] | | | | | | [place], [place] | | | | | | [address] | | | | | | [phone] | | | +--------+ + + + [...] | | | | | | [place] [address] | | | | | | [phone] | | | | | | | [...]
--- OUTSIDE RECORDS SUMMARY | ~2019-06-13 | XMS | Encounter Summary ---
Demographics + + + | Address | [address] | | | [place] [address] | + + + | Home Phone [...] Author | [facility] | | | and Eduardoana | + + + | Organization | [facility] | | | and Eduardoana | + + + | Address | Unknown | + + + | Phone | Unavailable | + + + Support + + + + + | Name | Relationship | Address | Phone | + + + + + | Poncho Oquendo | ECON | [address] | | | | | [place] | | | | | [address] | | + + + + + | Marta Upton | ECON | [place] | | | | | [address] | | + + + + + Care Team Providers + +------+ + | Care Embryology Teacher Name | Role | Phone | [...] [facility] | | | | | ME OFFICE | [address] | [place] | | | | | OUTPATIENT | Phone: | [phone] Phone: | | | | | VISIT 25 | [phone] | [phone] | | | | | MINUTES | Fax: | Fax: | | | | | | [phone] | [phone] | +--------+--------+ + + + + Encounter Details +--------+ + + + + | Date | Type | Department | Care Team | Description | +--------+ + + + + | 09/16/ | Hospital | [facility] | Reinaldo, | Gallbladder cancer, | | 2015 | Encounter | MED CTR MEDICAL | Chad Soler MD [address] | carcinoma (HCC) | | | | [facility] CLINIC [address] | [address] [place] | (Primary Dx) | | | | [address] [place] | [place] [address] | | | | | [place] [address] | [phone] | | | | | [phone] | | | +--------+ + + + [...] nt from the original. Hematology/Oncology Progress Note [facility] Pt. Name/Age/: Aura Upton 53 y.o. 1960 Med. Record Number: [id number] Date of admission: 09/16/2014 Identifying Statement: Aura Upton is a 53 y.o. female from [address] [place] [address] with Recurrent Cholangiocarcinoma. The patient chart and [...] Brandon Garcia March 29, 2012, pathological specimen [id number], analyzed by Dr. Bowers of [facility] and was notable for a poorly-differentiated adenoc arcinoma of the gallbladder. Liver biopsy demonstrated mild portal inflammation. 2. On April 28, 2012, she successfully underwent an R0 resection by Dr. Tai Stanton at [facility], pathological specimen [id number] was notable for the absence of any residual carcinoma within the gallbladder bed. However, 2/8 regional lym ph nodes contained regionally metastatic disease. 3. Consultation by Dr. Elva Grey of the [facility] on May returned the recommendation for adjuvant chemoradiation therapy following [id number] as follows: Capecitabine at 750 mg/m sq [...] staging by Dr. Oziel Casillas of the [facility]. Pathological analysis was notable for 9.5 cm [...] obtained by Dr. Richie Thayer of the [facility] iance who returned the recommendation for [...] the recommendations of Dr. Richie Thayerof the [facility] with gemcitabine at 1000 mg per meter squared on day one and day 8 wi th cisplatin 25 mg meter squared on day one and day 8 of a Q 21 day cycle beginning on July 26, 2014 complicated by grade 3 neutropenia and grade [address]ocyt[address]. 10[address] scan of the chest, abdomen and pelvis that [facility] on September 16, 2014 demonstrated no [...] will return to see me at the [facility] in [place], [place] on September 20, 2014 for clinical [...] has been changed since signin Order [facility] [place] dexamethasone (DECADRON) 4 mg tablet (Taking) Take one tablet PO as directed. Number of times this order has been changed since signin Order [facility] [place] docusate calcium (SURFAK) 240 mg capsule (Taking) Take 240 mg by mouth as needed. Number of times this order has been changed since signin Order [facility] [place] fish oil 1,000 mg capsule (Taking) Take 1,000 mg by mouth Daily. Number of times this order has been changed since signin Order [facility] [place] HYDROcodone-acetaminophen (VICODIN) 5-500 mg per tablet (Taking) Take 1 tablet by mouth e very 4 hours as needed. Number of times this order has been changed since signin Order [facility] [place] MULTIPLE VITAMIN PO (Taking) Take by mouth Daily. Number of times this order has been changed since signin Order [facility] [place] Probiotic Product (PROBIOTIC DAILY PO) (Taking) Take by mouth Daily. Number of times this order has been changed since signin Order [facility] [place] Allergy: Allergies Allergen Reactions Sulfa Antibiotics Objectives: [...] this chart may have been created with [employer]Points voice recognition software. 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
--- OUTSIDE RECORDS SUMMARY | ~2019-06-13 | XMS | Encounter Summary ---
Demographics + + + | Address | [address] | | | [place] [address] | + + + | Home Phone [...] | Author | [facility] | | | and Eduardoana | + + + | Organization | [facility] | | | and Eduardoana | + + + | Address | Unknown | + + + | Phone | Unavailable | + + + Support + + + + + | Name | Relationship | Address | Phone | + + + + + | Poncho Oquendo | ECON | [address] | | | | | [facility] [place] | | | | | [address] | | + + + + + | Marta Upton | ECON | [place] | | | | | [address] | | + + + + + Care Team Providers + +------+ + | Care Forensic Sergeant Name | Role | Phone | + [...] + + | 04/26/ | Hospital | [facility] | | Gallbladder cancer, | | 2020 | Encounter | REGIONAL SURGERY | | carcinoma (HCC); | | | | CENTER INTRA OP | | Obstruction of left | | | | [address] | | ureter | | | | [place] | | | | | | [address] | | | | | | [phone] | | | +--------+ + + + [...] lasts more than a day, a fever [id number] (38 C), or trouble urinating. Date Last Reviewed: 02/15/201619998717-1479 [employer]. [address] [place] [address]. All righ ts reserved. This information is [...] out of the urethra Date Last Reviewed: 02/15/201619992515-5797 [employer]. [address] [place] [address], [place] [address]. All righ ts reserved. This information is [...] [address] | | | | | | [place] [address] | | | | | | [phone] | | | | | | | [...]
--- OUTSIDE RECORDS SUMMARY | ~2019-06-13 | XMS | Encounter Summary ---
Demographics + + + | Address | [address] | | | [place] [address] | + + + | Home Phone [...] Author | [facility] | | | and Eduardoana | + + + | Organization | [facility] | | | and Eduardoana | + + + | Address | Unknown | + + + | Phone | Unavailable | + + + Support + + + + + | Name | Relationship | Address | Phone | + + + + + | Poncho Oquendo | ECON | [address] | | | | | [facility], [place] | | | | | [address] | | + + + + + | Marta Upton | ECON | [place], [place] | | | | | [address] | | + + + + + Care Team Providers + +------+ + | Care Chemical Analytical Sampler Name | Role | Phone | + +------+ + | No, Physician | PCP | Unavailable | + +------+ + Encounter Details +--------+ + + + + | Date | Type | Department | Care Team | Description | +--------+ + + + + | 04/26/ | Hospital | [facility] | Pedro Green, | | | 2019 | Encounter | REGIONAL SURGERY | DO [address] | | | | | CENTER INTRA OP | [place] [address] | | | | | [address] | [phone] | | | | | [place], [place] | | | | | | [address] | | | | | | [phone] | | | +--------+ + + + [...] [address] | | | | | | [place] [address] | | | | | | [phone] | | | | | | | [...]
--- OUTSIDE RECORDS SUMMARY | ~2019-06-13 | XMS | Encounter Summary ---
Demographics + + + | Address | [address] | | | [place] [address] | + + + | Home Phone [...] + | Author | [facility] | | | and Eduardoana | + + + | Organization | [facility] | | | and Eduardoana | + + + | Address | Unknown | + + + | Phone | Unavailable | + + + Support + + + + + | Name | Relationship | Address | Phone | + + + + + | Poncho Oquendo | ECON | [address] | | | | | [place] | | | | | [address] | | + + + + + | Marta Upton | ECON | [place] | | | | | [address] | | + + + + + Care Team Providers + +------+ + | Care Cuff Turner Machine Operator Name | Role | Phone [...] [place] | | | | | [address] [place] | [place] [address] | | | | | [place] [address] | [phone] | | | | | [phone] | | | +--------+ + + + [...] THOMASTAI | | | | | | [place] [address] | | | | | | [phone] | | | | | | | | +--------+---------+ + + + documented as of this encounter Visit Diagnoses + + | Diagnosis | + + | Gallbladder cancer, 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
--- OUTSIDE RECORDS SUMMARY | ~2019-06-13 | XMS | Encounter Summary ---
Demographics + + + | Address | [address] | | | [place] [address] | + + + | Home Phone [...] + | Author | [facility] | | | and Eduardoana | + + + | Organization | [facility] | | | and Eduardoana | + + + | Address | Unknown | + + + | Phone | Unavailable | + + + Support + + + + + | Name | Relationship | Address | Phone | + + + + + | Poncho Oquendo | ECON | [address] | | | | | [place] | | | | | [address] | | + + + + + | Marta Upton | ECON | [place] | | | | | [address] | | + + + + + Care Team Providers + +------+ + | Care Oil Sales And Service Rep Name | Role | Phone | [...] in | [address] | | | | | breast | [address] | [place], | | | | | Procedures | STREET | [place] | | | | | LUPE BREAST | [place], | [address] | | | | | BIOPSY RIGHT | [place] | Phone: | | | | | | [address] | [phone] | | | | | | Phone: | Fax: | | | | | | [phone] | [phone] | | | | | | Fax: | | | | | | | [phone] | | +--------+--------+ + + + + Encounter Details +--------+ + + + + | Date | Type | Department | Care Team | Description | +--------+ + + + + | 03/05/ | Hospital | [facility] | Reinaldo, | Mass of breast, | | 2017 | Encounter | MED CTR MAMMOGRAPHY | Epifanio Soler MD [address] | right | | | | [address] | [address] [place] | | | | | [place], [place] | [place] [address] | | | | | [address] | [phone] | | | | | [phone] | | | | | | | [...] [address] | | | | | | [place] [address] | | | | | | [phone] | | | | | | | [...] At | + + + | EXAM: [facility] DIAGNOSTIC RIGHT dated 03/05/2016 [...] In - 03/05/2016 2:52 PM PST EXAM: [facility] DIAGNOSTIC RIGHT | | [...]
--- OUTSIDE RECORDS SUMMARY | ~2019-06-13 | XMS | Encounter Summary ---
Demographics + + + | Address | [address] | | | [place] [address] | + + + | Home Phone [...] | Author | [facility] | | | and Eduardoana | + + + | Organization | [facility] | | | and Eduardoana | + + + | Address | Unknown | + + + | Phone | Unavailable | + + + Support + + + + + | Name | Relationship | Address | Phone | + + + + + | Poncho Oquendo | ECON | [address] | | | | | [facility] [place] | | | | | [address] | | + + + + + | Marta Upton | ECON | [place], [place] | | | | | [address] | | + + + + + Care Team Providers + +------+ + | Care Motorcycle Deliverer Name | Role | Phone | + +------+ + PCP | Unavailable | + +------+ + Encounter Details +--------+ + + + + | Date | Type | Department | Care Team | Description | +--------+ + + + + | 03/19/ | Hospital | [facility] | | | | 2013 | Encounter | MED CTR CANCER | | | | | | CENTER [address] | | | | | | [place] | | | | | | [address] | | | | | | [phone] | | | +--------+ + + + [...] | | | | | | [place] [address] | | | | | | [phone] | | | | | | | [...] + | [facility] | [address] | [place] | [phone] | | [facility] | | [address] | | | - LABORATORY | | | | + + + + + | [facility] | [address] | [place] | | | [facility] | | [id number] | | | - LABORATORY [...] | [facility] | | | | [facility] | | MEDICAL | | | [...] + | [facility] | [address] | [place] | [phone] | | [facility] | | [address] | | | - LABORATORY | | | | + + + + + | [facility] | [address] | [place] | | | [facility] | | [address], [facility] | | [...] | | (formerly Mahad) Advia | | [facility] | | | | [...] | | | | [address], [place], [place] | | | | | | [address] CLIA: | | | | | | [id number] | | | | + + + + + + + + | Specimen | + + | | + + + + + + + | Performing | Address | City/State/Zipcode | Phone Number | | Organization | | | | + + + + + | [facility] | [address] | [place] | [phone] | | [facility] | | [address] | | | - LABORATORY | | | | + + + + + | [facility] | [address] | [place] | | | [facility] | | [address] | | | - LABORATORY [...] | >60Comment: For | >60 mL/min/A | [facility] | | | GFR | -Americans, [...] + | [facility] | [address] | [place], [place] | [phone] | | [facility] | | [address] | | | - LABORATORY | | | | + + + + + | [facility] | [address] | [place], [place] | | | [facility] | | [address] | | | - LABORATORY [...] + | [facility] | [address] | [place] | [phone] | | [facility] | | [address] | | | - LABORATORY | | | | + + + + + | [facility] | [address] | [place] | | | [facility] | | [address] | | | - LABORATORY | | | | + + + + + documented in this encounter Visit Diagnoses Not on filedocumented in this encounter"
--- OUTSIDE RECORDS SUMMARY | ~2019-06-13 | XMS | Encounter Summary ---
Demographics + + + | Address | [address] | | | [place] [address] | + + + | Home Phone [...] Author | [facility] | | | and Eduardoana | + + + | Organization | [facility] | | | and Eduardoana | + + + | Address | Unknown | + + + | Phone | Unavailable | + + + Support + + + + + | Name | Relationship | Address | Phone | + + + + + | Poncho Oquendo | ECON | [address] | | | | | [place] | | | | | [address] | | + + + + + | Marta Upton | ECON | [place] | | | | | [address] | | + + + + + Care Team Providers + +------+ + | Care Gear Straightener Name | Role | Phone | [...] | | | | | Procedures | [address] | [place] | | | | | [place] OFFICE | Phone: | [address] Phone: | | | | | OUTPATIENT | [phone] | [phone] | | | | | VISIT 25 | Fax: | Fax: | | | | | MINUTES | [phone] | [phone] | +--------+--------+ + + + + Encounter Details +--------+ + + + + | Date | Type | Department | Care Team | Description | +--------+ + + + + | 05/21/ | Hospital | [facility] | Mathieu Langford | Gallbladder cancer, | | 2017 | Encounter | MED CTR MEDICAL | MD Epifanio [address] | carcinoma (HCC) | | | | [facility] CLINIC [address] | [address] | (Primary Dx) | | | | [address] [place] | [place] [address] | | | | | [place] [address] | [phone] | | | | | [phone] | | | +--------+ + + + [...] erent from the original. Hem-Onc Progress Note [facility] Pt. Name/Age/: Aura Upton 55 y.o. 1960 Med. Record Number: [id number] Date of admission: 05/21/2016 Assessment and plan: [...] Electronically signed by: Mathieu Langford, 05/21/2016 9:08 [facility] TIME SPENT 20 MIN. > 50% AT BEDSIDE, WITH FAMILY/PATIENT IN CARE AND BUGGY RUNNER ON UNIT AND CO ORDINATION OF CARE Portions of this chart may have been created with [employer] voice recognition software. Occasi onal wrong-word or [...] and 4 hour treatment. (Dr. Najera o ok). She is having concerns about an immune [...] BLVD | | | | | | [place] [address] | | | | | | [phone] | | | | | | | [...] [place] | | | | | | [address] | | | | + + + + + + + + | Specimen | + + | Blood specimen | | (specimen) | + + + + + + + | Performing | Address | City/State/Zipcode | Phone Number | | Organization | | | | + + + + + | [facility] | [address] | [place] [address] | [phone] | + + + + + Lactate [...] [address] | [place] | [phone] | | [facility] | | [address] | | | - LABORATORY | | [...] | 0.97 | 0.60 - 1.30 | [facility] | | | | | mg/dL | [facility] | | | | | | MEDICAL | | | | | | CENTER - | | | | | | LABORATORY | | + + + + + + | eGFR if not | 60Comment: GLOMERULAR | >=60 | [facility] | | | | FILTRATION | mL/min/1.73m2 | [facility] | | | SAMOAN | RATE,ESTIMATED | | MEDICAL | | | | mL/min/1.51w2Rksm than | | CENTER - | | [...] [address] | [place] | [phone] | | [facility] | | [address] | | | - LABORATORY | | [...] 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
--- OUTSIDE RECORDS SUMMARY | ~2019-06-13 | XMS | Encounter Summary ---
Demographics + + + | Address | [address] | | | [place] [address] | + + + | Home Phone [...] Author | [facility] | | | and Eduardoana | + + + | Organization | [facility] | | | and Eduardoana | + + + | Address | Unknown | + + + | Phone | Unavailable | + + + Support + + + + + | Name | Relationship | Address | Phone | + + + + + | Ponhco Oquendo | ECON | [address] | | | | | [facility], [place] | | | | | [address] | | + + + + + | Marta Upton | ECON | [place], [place] | | | | | [address] | | + + + + + Care Team Providers + +------+ + | Care Director Of Strategic Initiatives Name | Role | Phone | + +------+ + PCP | Unavailable | + +------+ + Encounter Details +--------+ + + + + | Date | Type | Department | Care Team | Description | +--------+ + + + + | 07/13/ | Hospital | [facility] | | | | 2012 - | Encounter | MED CTR CANCER | | | | | | CENTER [address] | | | | 07/14/ | | [place] | | | | 2012 | | [address] | | | | | | [phone] | | | +--------+ + + + [...] | | | | | | [place] [address] | | | | | | [phone] | | | | | | | [...] + | [facility] | [address] | [place], [place] | [phone] | | [facility] | | [address] | | | - LABORATORY | | | | + + + + + | [facility] | [address] | [place] | | | [facility] | | [address] [place] [address] | | | - LABORATORY | | [...] [address] | [place] | [phone] | | [facility] | | [address] | | | - LABORATORY | | | | + + + + + | [facility] | [address] | [place] | | | [facility] | | [id number] [...] + | [facility] | [address] | [place] | [phone] | | [facility] | | [address] | | | - LABORATORY | | | | + + + + + | [facility] | [address] | [place], [place] | | | [facility] | | [address] | | | - [...] [address] | [place] | [phone] | | [facility] | | [address] | | | - LABORATORY | | | | + + + + + | [facility] | [address] | [place] | | | [facility] | | [id number] [...] | >60 mL/min/A | [facility] | | | GFR | -Americans, | [...] + | [facility] | [address] | [place] | [phone] | | [facility] | | [address] | | | - LABORATORY | | | | + + + + + | [facility] | [address] | [place] | | | [facility] | | [address], [facility] | | | - [...] + | [facility] | [address] | [place], [place] | [phone] | | [facility] | | [address] | | | - LABORATORY | | | | + + + + + | [facility] | [address] | [place], [place] | | | [facility] | | [facility], [facility] | | | - [...] [address] | [place] | [phone] | | [facility] | | [address] | | | - LABORATORY | | | | + + + + + | [facility] | [address] | [place] | | | [facility] | | [address], [facility] | | | - [...] | >60 mL/min/A | [facility] | | | GFR | -Americans, | [...] + | [facility] | [address] | [place] | [phone] | | [facility] | | [address] | | | - LABORATORY | | | | + + + + + | [facility] | [address] | [place], [place] | | | [facility] | | [address], [facility] | | | - [...] + | [facility] | [address] | [place] | [phone] | | [facility] | | [address] | | | - LABORATORY | | | | + + + + + | [facility] | [address] | [place] | | | [facility] | | [address], [facility] | | | - LABORATORY | | | | + + + + + documented in this encounter Visit Diagnoses Not on filedocumented in this encounter"
--- OUTSIDE RECORDS SUMMARY | ~2019-06-13 | XMS | Encounter Summary ---
Demographics + + + | Address | [address] | | | [place] [address] | + + + | Home Phone [...] Providers + +------+ + | Care Manager Non Profit Name | Role | Phone | + [...] | | 2012 | | Center at [facility] [address] | [address] | | | | | [address] [facility] | [facility] | | | | | for Health and | [place], [place] | | | | | [facility], [facility] 2 | [address] | | | | | [place], [place] | [phone] | | | | | [address] | | | | | | [phone] | | | +--------+ + + + [...]
--- OUTSIDE RECORDS SUMMARY | ~2019-06-13 | XMS | Encounter Summary ---
Demographics + + + | Address | [address] | | | [place] [address] | + + + | Home Phone [...] Team Providers + +------+ + | Care Varnishing Unit Tool Setter Name | Role | Phone | [...] | | | Reconstructive | Velma [place], | Examination (Primary | | | | Services at [facility] | [place] [address] | Dx); Perforation of | | | | [address] | [phone] | Nasal Septum | | | | Mailcode: CH5E | | | | | | [facility] | | | | | | and Healing, | | | | | | Building 1, 5th | | | | | | Floor [place], [place] | | | | | | [address] | | | | | | [phone] | | | +--------+---------+ + + + [...] take place on the hill at the [facility]: Surgeries scheduled in the [facility] (4 North): registration is located on the 4th floor of [facility] (Day Surgery). Surgeries scheduled in the [facility]: registration is located on the 9th floor. Surgeries scheduled in [facility]: registration is located on the 6th floor. Surgeries scheduled in the [facility]: registration is located i n the [facility] on the first floor. For surgeries scheduled to take place at the [facility]: registration is l [...] If you use specialized medical equipment at [facility], please check with your provider before bringing [...] Surgery [facility] Thompson [email or web address] im, Prudencio Coello MD - 2008 [...] BTL Allergies: nkda Social History: Lives in [place]. Past smoking history, none now. No alcohol [...] wishes to sc hedule. Jose Olivia MD Cloth Printing Back Tender Facial Plastic and Reconstructive Surgery Department of Otolaryngology/Head and Neck Surgery [facility] Email - [email or web address] HISTORY: Clinic: Facial Plastic and Reconstructive Surgery [...] today. Photos obtained. She met with my mill order scheduler maximo hirsch. Followup arranged for preop. Time spent with patient /family, reviewing studies/ recor ds 20 minutes, with >50 % of time spent in consultation and coordination of care. Virgilio Buck MD FACS Professor Facial Plastic and Reconstructive Surgery Dept. of Otolaryngology/Head and Neck Surgery [facility] tel fax email [email or web address] CURRENT PROBLEM LIST: Patient Active Problem [...]
--- OUTSIDE RECORDS SUMMARY | ~2019-06-13 | XMS | Encounter Summary ---
Demographics + + + | Address | [address] | | | [place] [address] | + + + | Home Phone [...] + +------+ + | Care Nursing Home Manager Name | Role | Phone | [...] 2012 | | Center at [facility] [address] | [address] | | | | | [facility]EN [facility] | [facility] | | | | | for [facility] and | [place], [place] | | | | | [facility], [place] [address] | [address] | | | | | [place], [place] | [phone] | | | | | [address] | | | | | | [phone] | | | +--------+ + + + [...]
--- OUTSIDE RECORDS SUMMARY | ~2019-06-13 | XMS | Encounter Summary ---
Demographics + + + | Address | [address] | | | [place] [address] | + + + | Home Phone [...] Author | [facility] | | | and Eduardoana | + + + | Organization | [facility] | | | and Eduardoana | + + + | Address | Unknown | + + + | Phone | Unavailable | + + + Support + + + + + | Name | Relationship | Address | Phone | + + + + + | Poncho Oquendo | ECON | [address] | | | | | [place] | | | | | [address] | | + + + + + | Marta Upton | ECON | [place] | | | | | [address] | | + + + + + Care Team Providers + +------+ + | Care Wine Master Name | Role | Phone | + +------+ + | Valeriy Carmona DO | PCP | | + +------+ + Encounter Details +--------+ + + + + | Date | Type | Department | Care Team | Description | +--------+ + + + + | 07/01/ | Abstract | [facility] | Nelda Fuchs, | | | 2014 | | MED CTR PHARMACY | [facility] [address] | | | | | [address] [place] | [place], [place] | | | | | [place] [address] | [address] | | | | | [phone] | | | +--------+ + + + [...] as of this encounter Progress Nelda Pimentel [facility] - 07/01/2014 1:37 PM PDTFormatting of this note might be different fro m the original. IDT PATIENT MEDICATION/PROFILE REVIEW [facility] CLINICAL PHARMACY SERVICES [...] 12 kg/m2, Est CrCl = 110 ml/min (Schrader-Hutchinson Equation) Allergies : Sulfa antibiotics Diagnosis: Stage [...] 2019 | Visit | | DO [address] [facility] [address] | | | | | | [place] [address] | | | | | | [phone] | | | | | | | | +--------+---------+ + + + documented as of this encounter Visit Diagnoses Not on filedocumented in this encounter
--- OUTSIDE RECORDS SUMMARY | ~2019-06-13 | XMS | Encounter Summary ---
Demographics + + + | Address | [address] | | | [place] [address] | + + + | Home Phone [...] Team Providers + +------+ + | Care House Director Name | Role | Phone | [...] Mailcode: | | | | | | [place], [place] | [facility] | | | | | | [address] | for Health | | | | | | Phone: | and Healing, | | | | | | [phone] | Building 1, | | | | | | Fax: | 7th Floor | | | | | | [phone] | [place], [place] | | | | | | | [address] | | | | | | | Phone: | | | | | | | [phone] | | | | | | | Fax: | | | | | | | [phone] | +--------+--------+ + + + + Encounter Details +--------+---------+ + + + | Date | Type | Department | Care Team | Description | +--------+---------+ + + + | 11/01/ | Office | Hematology/Medical | Elva Grey, | Gallbladder cancer | | 2013 | Visit | Oncology at [facility] | [address] | (HCC) (Primary Dx) | | | | [address] | [address] | | | | | Mailcode: CH7M | [place] [address] | | | | | [facility] | [phone] | | | | | and Healing, | | | | | | [facility] 1, 7th | | | | | | Floor [place], [place] | | | | | | [address] | | | | | | [phone] | | | +--------+---------+ + + + [...] negative for malignancy - Adjuvant chemotherapy recommended: Naper/Cap for 4 cycles then restaging - 09/13/12-10/23/12 [...] ultrasound, this was normal. No admission to [facility], had some neupogen shots during her [...] for up to 12 hours in a wy 24-hour period. ondansetron ODT 4 mg Oral [...] healthy lifestyle, I did not recommend a wy specific supplementation. Return if symptoms worsen or fail to improve. Will have follow up locally [facility] Plan of Treatment Not on filedocumented [...]
--- OUTSIDE RECORDS SUMMARY | ~2019-06-13 | XMS | Encounter Summary ---
Demographics + + + | Address | [address] | | | [place] [address] | + + + | Home Phone [...] | Author | [facility] | | | and [place]ardo[place] | + + + | Organization | [facility] | | | and Eduardoana | + + + | Address | Unknown | + + + | Phone | Unavailable | + + + Support + + + + + | Name | Relationship | Address | Phone | + + + + + | Poncho Oquendo | ECON | [address] | | | | | [place] | | | | | [address] | | + + + + + | Marta Upton | ECON | [place] | | | | | [address] | | + + + + + Care Team Providers + +------+ + | Care Telephonic Nurse Name | Role | Phone | [...] [place] | | | | | [address] | [place] [address] | | | | | [place] [address] | [phone] | | | | | [phone] | | | +--------+ + + + [...] THOMASTAI | | | | | | [place] [address] | | | | | | [phone] | | | | | | | | +--------+---------+ + + + documented as of this encounter Visit Diagnoses + + | Diagnosis | + + | Gallbladder cancer, 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
--- OUTSIDE RECORDS SUMMARY | ~2019-06-13 | XMS | Encounter Summary ---
Demographics + + + | Address | [address] | | | [place] [address] | + + + | Home Phone [...] | + + +---------+ + | Elsy Upotn | ECON | Unknown | | + + +---------+ + Care Team Providers + +------+ + | Care Turkey Pinner Name | Role | Phone | + [...] MD | | | | | Nahid [facility] Shay | Genevieve Acosta, | | | | | Hospital Admitting | | | | | | Desk Located on the | | | | | | 9th floor | | | | | | [place], [place] | | | | | | [address] | | | +--------+ + + + [...]
--- OUTSIDE RECORDS SUMMARY | ~2019-06-13 | XMS | Encounter Summary ---
Demographics + + + | Address | [address] | | | [place] [address] | + + + | Home Phone [...] Author | [facility] | | | and [place]ardo[place] | + + + | Organization | [facility] | | | and Eduardo[place] | + + + | Address | Unknown | + + + | Phone | Unavailable | + + + Support + + + + + | Name | Relationship | Address | Phone | + + + + + | Poncho Oquendo | ECON | [address] | | | | | [place] | | | | | [address] | | + + + + + | Marta Upton | ECON | [place] | | | | | [address] | | + + + + + Care Team Providers + +------+ + | Care Cargo Router Name | Role | Phone | + +------+ + | Valeriy Carmona DO | PCP | | + +------+ + Encounter Details +--------+ + + + + | Date | Type | Department | Care Team | Description | +--------+ + + + + | 12/17/ | Hospital | [facility] | [facility], | Gallbladder cancer, | | 2015 | Encounter | MED CTR CHEMO | Epifanio Soler MD [address] | carcinoma (HCC) | | | | INFUSION [address] [place] | (Primary Dx); | | | | [place], | [place] [address] | Carcinoma of gall | | | | [place] [address] | [phone] | bladder (HCC); | | | | [phone] | | Neoplasm related | | | [...] [address] | | | | | | [place] [address] | | | | | | [phone] | | | | | | | [...] [address] | [place] | [phone] | | [facility] | | [address] | | | - LABORATORY | | [...] | 0.66 | 0.60 - 1.30 | [facility] | | | | | [...] | | MEDICAL | | | | mL/min/1.89w4Nqnw than | | CENTER - | | [...] [address] | [place] | [phone] | | [facility] | | [address] | | | - LABORATORY | | [...] [address] | [place] | [phone] | | [facility] | | [address] | | | - LABORATORY | | [...] | | | | | | [place] [address] | | | | + + + + + + + + | Specimen | + + | Blood specimen | | (specimen) | + + + + + + + | Performing | Address | City/State/Zipcode | Phone Number | | Organization | | | | + + + + + | [facility] | [address] | [place] [address] | [phone] | + + + + + [place] [...] + | [facility] | [address] | [place] | [phone] | | [facility] | | [address] | | | - LABORATORY | | [...]
--- OUTSIDE RECORDS SUMMARY | ~2019-06-13 | XMS | Encounter Summary ---
Demographics + + + | Address | [address] | | | [place] [address] | + + + | Home Phone [...] + +------+ + | Care Director Of Purchasing Name | Role | Phone | + +------+ + | Tomasa Wagner | PCP | | + +------+ + Encounter Details +--------+ + + + + | Date | Type | Department | Care Team | Description | +--------+ + + + + | 09/25/ | Telephone | Digestive Health | Tai Stanton, | | | 2012 | | Center at [facility] [address] | [address] | | | | | [facility] [facility] | [facility] | | | | | for [facility] and | [place], [place] | | | | | [facility], [place] [address] | [address] | | | | | [place], [place] | [phone] | | | | | [address] | | | | | | [phone] | | | +--------+ + + + [...]
--- OUTSIDE RECORDS SUMMARY | ~2019-06-13 | XMS | Encounter Summary ---
Demographics + + + | Address | [address] | | | [place] [address] | + + + | Home Phone [...] | Author | [facility] | | | and [place]ardo[place] | + + + | Organization | [facility] | | | and [place]ardoana | + + + | Address | Unknown | + + + | Phone | Unavailable | + + + Support + + + + + | Name | Relationship | Address | Phone | + + + + + | Poncho Oquendo | ECON | [address] | | | | | [facility] [place] [place] | | | | | [address] | | + + + + + | Marta Upton | ECON | [place], [place] | | | | | [address] | | + + + + + Care Team Providers + +------+ + | Care Arc And Gas Welder Name | Role | Phone | + +------+ + PCP | Unavailable | + +------+ + Encounter Details +--------+ + + + + | Date | Type | Department | Care Team | Description | +--------+ + + + + | 07/13/ | Hospital | [facility] | | | | 2012 - | Encounter | MED CTR CANCER | | | | | | CENTER [address] | | | | 07/14/ | | [place] | | | | 2012 | | [address] | | | | | | [phone] | | | +--------+ + + + [...] [address] | | | | | | [place] [address] | | | | | | [phone] | | | | | | | [...] ST. | [address] | [place], [place] | [phone] | | [facility] | | [address] | | | - LABORATORY | | | | + + + + + | [facility] | [address] | [place] | | | [facility] | | [address] [place] [address] | | | - LABORATORY | | [...] [address] | [place] | [phone] | | [facility] | | [address] | | | - LABORATORY | | | | + + + + + | [address] | [address] | [place] | | | [facility] | | [address] | | | - [...] ST. | [address] | [place] | [phone] | | [facility] | | [address] | | | - LABORATORY | | | | + + + + + | [facility] | [address] | [place], [place] | | | [facility] | | [address] | | | - [...] [address] | [place] | [phone] | | [facility] | | [address] | | | - LABORATORY | | | | + + + + + | [address] | [address] | [place] | | | [facility] | | [address] | | | - [...] | >60Comment: For | >60 mL/min/A | [facility] | | | GFR | -Americans, [...] [address] | [place] | [phone] | | [facility] | | [address] | | | - LABORATORY | | | | + + + + + | [facility] | [address] | [place] | | | [facility] | | [address], [facility] | | | - [...] ST. | [address] | [place], [place] | [phone] | | [facility] | | [address] | | | - LABORATORY | | | | + + + + + | [facility] | [address] | [place], [place] | | | [facility] | | [facility], [facility] | | | - [...] ST. | [address] | [place] | [phone] | | [facility] | | [address] | | | - LABORATORY | | | | + + + + + | [address] [facility] | [address] | [place] | | | [facility] | | [address], [facility] | | | - [...] | >60Comment: For | >60 mL/min/A | [facility] | | | GFR | -Americans, [...] + | [address] | [address] | [place] | [phone] | | [facility] | | [address] | | | - LABORATORY | | | | + + + + + | [address] | [address] | [place], [place] | | | [facility] | | [address], [facility] | | | - [...] [address] | [place] | [phone] | | [facility] | | [address] | | | - LABORATORY | | | | + + + + + | [facility] | [address] | [place] | | | [facility] | | [address], [facility] | | | - LABORATORY | | | | + + + + + documented in this encounter Visit Diagnoses Not on filedocumented in this encounter"
--- OUTSIDE RECORDS SUMMARY | ~2019-06-13 | XMS | Encounter Summary ---
Demographics + + + | Address | [address] | | | [place] [address] | + + + | Home Phone [...] | Author | [facility] | | | and Eduardoana | + + + | Organization | [facility] | [...] [address] | | | | | [place] | | | | | [address] | | + + + + + | Marta Upton | ECON | [place] | | | | | [address] | | + + + + + Care Team Providers + +------+ + | Care Supervisor Dock Name | Role | Phone | + [...] | | | | | | [place] [address] | | | | | | [phone] | | | +--------+ + + + [...] | | | | | [place] [address] | | | | | | [phone] | | | | | | | | +--------+---------+ + + + documented as of this encounter Visit Diagnoses Not on filedocumented in this encounter"
--- OUTSIDE RECORDS SUMMARY | ~2019-06-13 | XMS | Encounter Summary ---
Demographics + + + | Address | [address] | | | [place] [address] | + + + | Home Phone [...] Team Providers + +------+ + | Care Boiler Tube Reamer Name | Role | Phone | + [...] Oncology at [facility] | [address] | Question | | | | [address] [facility] | [facility] [address] | | | | | Mailcode: CH7M | [place] [address] | | | | | [facility] | [phone] | | | | | and [address], | | | | | | [place] [address] | | | | | | [place], [place] | | | | | | [address] | | | | | | [phone] | | | +--------+ + + + [...]
--- OUTSIDE RECORDS SUMMARY | ~2019-06-13 | XMS | Encounter Summary ---
Demographics + + + | Address | [address] | | | [place] [address] | + + + | Home Phone [...] Providers + +------+ + | Care Senior Clinical Sas Programmer Name | Role | Phone | [...] | Medicine Clinic at | [address] | (Primary Dx); | | | | [facility] 4th Floor [address] | [address] [place], | Gallbladder cancer | | | | [address] | [place] [address] | ([facility]); Other | | | | Mailcode: [facility] | [phone] | specified | | | | [facility] | | pre-operative | | | | and Healing, | | examination | | | | Building 1,4th Floor | | | | | | [place], [place] | | | | | | [address] | | | | | | [phone] | | | +--------+---------+ + + + [...] Surgery Check in Locations Day Stay Unit [facility], fourth floor Room 4510 [facility] Day Stay [facility], fourth floor Admitting [facility], ninth floor [facility] Unit [facility], sixth floor Surgery Check in [...] it is after office hours, call the [facility] case loader operator at [phone] and ask them to page him or h er. Preparing For Your Surgery Video -- 7 minutes of instructions! If you have access to the Internet and would like to review our instructional video about g etting ready for your procedure day, please follow these directions: Access the [facility] website [email or web address] --> POPULAR RESOURCES --> Patient Guide --> [...] further investigation and manageme nt. A. Acute [place] within 7 days: no B. Unstable angina/Recent [place] (7- 30 days): no C. Decompensated CHF: [...] no Rate of cardiac , non fatal [place], non fatal cardiac arrest (RCRI) 0 risk [...] to this patient's care. JAYLA BARRON NP [facility] PREOPERATIVE MEDICINE CLINIC [address] [place] [address] I spent 20 minutes with the [...] | + +--------+ + + + | [facility] | Routin | 04/27/2012 | [...] | | | LABORATORY | | | TANZANIAN | | | SERVICES, | | | [...] [facility] | [address] | [place] [address] | | | SERVICES, CORE | [address] [...] [facility] | [address] | [place] [address] | | | SERVICES, | [address] [...] [facility] | [address] | [place] [address] | | | SERVICES, | [address] [...] view image for the detailed interpretation from [employer] results. | CARDIOLOGY | + + + + + + + + | Performing | Address | City/State/Zipcode | Phone Number | | Organization | | | | + + + + + | [facility] | [address] | [place], [place] | | | CARDIOLOGY | [facility] | [address] | | + + + + + [...] + + | JOHN KEYS | [address] [facility] | [place] [address] | | | OF CARE TESTS | [...]
--- OUTSIDE RECORDS SUMMARY | ~2019-06-13 | XMS | Encounter Summary ---
Demographics + + + | Address | [address] | | | [place] [address] | + + + | Home Phone [...] Providers + +------+ + | Care Automotive Power Electronics Engineer Name | Role | Phone | [...] & | Diagnoses | [facility] | [facility] Assistant Onc | | | | Gynecology | Complex | Epic Dept | [facility] [address] | | | | | Cystic Mass, | | [address] | | | | | elevated | | [place] | | | | | [address] per | | [address], 7th | | | | | appt notes | | floor | | | | | | | [place], [place] | | | | | | | [address] | | | | | | | Phone: | | | | | | | [phone] | | | | | | | Fax: | | | | | | | [phone] | +--------+--------+ + + + + Encounter Details +--------+---------+ + + + | Date | Type | Department | Care Team | Description | +--------+---------+ + + + | 07/23/ | Office | [facility] | Miguel Seymour, | 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 | [facility] [place] | [address] | (HCC) (Primary Dx); | | | | [address] | [address] | Pelvic mass; | | | | [address] | [place], [place] | Post-operative pain | | | | [address], 7th floor | [address] | | | | | [place], [place] | [phone] | | | | | [address] | | | | | | [phone] | | | +--------+---------+ + + + [...] might be different fr om the original. [facility] ONCOLOGY RETURN VISIT 07/23/2014 TREATMENT DIAGNOSIS: Stage [...] for pelvic recurrence (can be with regular PARACHUTE PACKER) 3. 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 Henderson, who agrees with the assessment and plan. Lotus Maher MD CARE ANALYST R4 I saw and evaluated the patient [...]
--- OUTSIDE RECORDS SUMMARY | ~2019-06-13 | XMS | Encounter Summary ---
Demographics + + + | Address | [address] | | | [place] [address] | + + + | Home Phone [...] Providers + +------+ + | Care Legal Nurse Consultant Name | Role | Phone | [...] cancer | [address] | [address] [facility] | | | | | ([facility]) | [facility] | [facility] | | | | | Procedures | Rd | Rd [place], | | | | | REQUEST TO | [place], [place] | [place] | | | | | SURGERY | [address] | [address] | | | | | CARETAKER | Phone: | Phone: | | | | | NE RESEC | [phone] | [phone] | | | | | LIVER,PART | Fax: | Fax: | | | | | LOBECTOMY | [phone] | [phone] | | | | | NE REMOVE | | | | | | | ABD LYMPH | | | | | | | NODES RAD | | | | | | | REGNL NE | | | | | | | [...] | | | | CT CHEST, | [place], [place] | 10th Floor | | | | | ABDOMEN & | [address] | [place], [place] | | | | | PELVIS W IV | Phone: | [phone] | | | | | CONTRAST | [phone] | Phone: | | | | | [address], [address] | Fax: | [phone] | | | | | | [phone] | Fax: | | | | | | | [phone] | +--------+--------+ + + + + Reason [...] | | | | | cancer | [facility] | [address] | | | | | (HCC) | SURGICAL | [facility]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 | CLINIC [address] | [address] [place], | | | | | ca | [address] | [place] | | | | | | AVE | [address] | | | | | | [place], | Phone: | | | | | | [place] [address] | [phone] | | | | | | Phone: | Fax: | | | | | | [phone] | [phone] | | | | | | Fax: | | | | | | | [phone] | | +--------+--------+ + + + + Encounter Details +--------+---------+ + + + | Date | Type | Department | Care Team | Description | +--------+---------+ + + + | 04/12/ | Office | Digestive Health | Tai Stanton, | Gallbladder cancer | | 2012 | Visit | Center at [facility] [address] | [address] | (HCC) (Primary Dx) | | | | [address] | [facility] | | | | | for [facility] and | [place], [place] | | | | | [facility] 2 | [address] | | | | | [place], [place] | [phone] | | | | | [address] | | | | | | [phone] | | | +--------+---------+ + + + [...] - 04/12/2012 5:30 PM PSTPATIENT SURGERY INFORMATION [facility] General Surgery Office Toll-free: [facility] 7672 Surgery Date: April 28, 2012 Procedure: Segment [...] the surgery. Please see the list below, [facility] has a list of products that contain [...] from anyone by 7 pm please call [phone]. PARKING Parking for patients is available underneath the [facility] building. Parking is also available in the [facility] Parking structure located across from the emergency depart ment; patient parking available on level 1 and 3. Metered parking is available on the critical access hospital. CHECKING IN FOR SURGERY Hospital Admission (in-patient): Admitting Desk 9th floor of [facility] TRANSPORTATION Day Surgery: If you have [...] Please notify the general surgery office at [phone] as soon as possible should you nee [...] prior to your surgery. PRODUCTS CONTAINING ASPIRIN Winsome-Renault, Anacin, Anexsia with Codeine, Andynos, Aspirin, Aspirin suppositories, Ascrip tin, Aspergum, Axotal, B-A-C, Baby Aspirin, Mahad, BC Powder, Bexophene, Buffaprin, Bufferin , Buffinol, Cama-Arthritis Strength, Congespirin, [place], Coricidin, Damason, Darvon, Dristan, Elen-Gesic, Digel, Dolprin #3 Tablets, Donatab, Doxaphene, Duragesic, Easprin, Ecotrin, Emag rin Forte, Emiprin, Emprazil, Equagesic, Equazine M, Excedrin, Fiogesic, Fiorgen PH, Fiorice t, Fiorinal, 4-Way Cold Tablet Gemnisyn, Indocin, Liquprin, Lortab ASA, Magnaprin, Marnal, Meprobamate, Midol, Momentum, N orgesic, [place], Orphengesic, Pabalate, P-A-C, Percodan, Presalin, Robaxasil, Roxiprin, Cruz eto, Salocol SK-65 Compound, Sine-Aid, Sine-Off,, [place], Supac, Talwin Compound, Trigesic, Tolectin , Traiminicin, Vanquish, ZORprin, Zomax PRODUCTS CONTAINING IBUPROFEN Advil, Aleve, Haltran, Medipren, Midol, Motrin, Naproxyn, Nuprin, Rufen OTHER PRODUCTS WHICH MAY PROMOTE BLEEDING Vitamin E, Gingko Biloba, Marine Fatty Acids, [place]-3 Fish Oil SupplementsElectronically si gned by Amy Dinh RN at 04/12/2012 5:31 PM PST documented in this encounter Progress Notes Tai Stanton MD - 04/18/2012 11:09 AM PSTI saw and evaluated the patient. I agree with the findings and the plan of care as documented in the resident s note. Tai Stanton M.D. Formerly [facility] [employer] ([facility]) Professor and Vice-Electron Beam Welding Machine Operator of Surgery The Shahriar Nava Chair for Pancreatic Disease Research Pancreatic/ HepatoBiliary and Foregut Working Groups Mail Code [id number] [address] [place], [place]. [address] email: [email or web address] Mackenzie Troy MD - 04/12/2012 6:05 PM PST ID: Aura Upton CC: Referral for treatment of gall-bladder cancer found post lap analy HPI: Mrs Upton is a 51yo woman w/ h/o chronic back pain who is being referred by her georgina geon at [facility] for incidental finding gallbladder mass during [...] had a la paroscopic Cholecystectomy performed at [facility] which confirmed 3 gallstones an [...] cancers Father DM, CAD SH: [place] , Denies tobacco use, very [...] Latest Range: 0.60-1.10 mg/dL 0.70 EGFR - SRI LANKAN No range found >60 EGFR NON -SRI LANKAN No range found >60 GLUCOSE, PLASMA (LAB) [...] Farr MD Chief Resident Department of Surgery [facility] documented in this en counter Plan [...] | | + +---------+ + + | [facility] DEPARTMENT OF | | | | [...] by | | | | | | [address] | | | | | | Jessica Lindquist, [facility],[place] | | | | | | [address] | | | | | | [phone]. | | | | | [...] [facility] | [address] | [place], [place] | | | UNIV PTH - INTFC | | [address] | | + + + + + [...] [place] | | | | | | [facility] [address] | | | | | | [phone]. | | | | | | Lala [...] [facility] | [address] | [place], [place] | | | UN[facility] PTH [facility] INT[facility] | | [address] | | + + + + + [...] [facility] | [address] | [place] [address] | | | GAVIN, SAM | NEAL [...] | | | LABORATORY | | | SRI LANKAN | | | SERVICES, | | | [...] [facility] | [address] | [place] [address] | | | SERVICES, CENTER FOR | | | | | HEALTH + HEALING | | | | + + + + + documented in this encounter Visit Diagnoses + + | Diagnosis | + + | Gallbladder cancer (HCC) - Primary Malignant neoplasm of gallbladder | + + documented in this encounter
--- OUTSIDE RECORDS SUMMARY | ~2019-06-13 | XMS | Encounter Summary ---
Demographics + + + | Address | [address] | | | [place] [address] | + + + | Home Phone [...] Team Providers + +------+ + | Care University Extension Specialist Name | Role | Phone | [...] Center at [address] | [address] [facility] | carcinoma (HCC) | | | | [facility] | [address] | (Primary Dx) | | | | for Health and | [place], [place] | | | | | [facility], [facility] 2 | [address] | | | | | [place], [place] | [phone] | | | | | [address] | | | | | | [phone] | | | +--------+---------+ + + + [...] the resident s note. Tai Stanton M.D. [facility] ([facility]) Professor and Vice-Crime Victim Specialist of Surgery The Shahriar Nava Chair for Pancreatic Disease Research Pancreatic/ HepatoBiliary and Foregut Working Groups Mail Code [id number] [address] [place], [place]. [address] email: [email or web address] Gary Marrero MD - 05/17/2012 [...] probing. Packed with 1/4 in g auze. Conetoe removed, steristrips placed. Extremities: WWP, no significant [...] GARY DONOHUE MD General Surgery, [place]. 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
--- OUTSIDE RECORDS SUMMARY | ~2019-06-13 | XMS | Encounter Summary ---
Demographics + + + | Address | [address] | | | [place] [address] | + + + | Home Phone [...] Team Providers + +------+ + | Care Bending Machine Set Up Operator Name | Role | [...] | | 2014 | | [facility] | [place], [place] | | | | | [address] | [address] | | | | | [address] | | | | | | Alexis, [address] [facility] | | | | | | [place], [place] | | | | | | [address] | | | | | | [phone] | | | +--------+ + + + [...]
--- OUTSIDE RECORDS SUMMARY | ~2019-06-13 | XMS | Encounter Summary ---
Demographics + + + | Address | [address] | | | [place] [address] | + + + | Home Phone [...] | [facility] | | | and [place] | + + + | Organization | [facility] | | | and [place] | + + + | Address | Unknown | + + + | Phone | Unavailable | + + + Support + + + + + | Name | Relationship | Address | Phone | + + + + + | Poncho Oquendo | ECON | [address] | | | | | [place] | | | | | [address] | | + + + + + | Marta Upton | ECON | [place] | | | | | [address] | | + + + + + Care Team Providers + +------+ + | Care Early Childhood Education Coordinator Name | Role | Phone | [...] | | | | | Procedures | [address] | [place] | | | | | ID OFFICE | Phone: | [address] Phone: | | | | | OUTPATIENT | [phone] | [phone] | | | | | VISIT 25 | Fax: | Fax: | | | | | MINUTES | [phone] | [phone] | +--------+--------+ + + + + Encounter Details +--------+ + + + + | Date | Type | Department | Care Team | Description | +--------+ + + + + | 10/31/ | Hospital | [facility] | [facility] | Gallbladder cancer, | | 2015 | Encounter | [facility] | Chad Soler MD [address] | carcinoma (HCC) | | | | ONCOLOGY CLINIC [address] | [address] | (Primary Dx); | | | | [facility] | [place] [address] | Neoplasm related | | | | [place] [address] | [phone] | pain (acute) | | | | [phone] | | (chronic) | +--------+ + + [...] nt from the original. Hematology/Oncology Progress Note [facility] Pt. Name/Age/: Aura Upton 53 y.o. 1960 Med. Record Number: [id number] Date of admission: 10/31/2014 Identifying Statement: Auar Upton is a 53 y.o. female from [address] [place] [address] with Recurrent Cholangiocarcinoma. The patient chart and [...] Brandon Garcia March 29, 2012, pathological specimen [id number], analyzed by Dr. Bowers of [facility] and was notable for a poorly-differentiated adenoc arcinoma of the gallbladder. Liver biopsy demonstrated mild portal inflammation. 2. On April 28, 2012, she successfully underwent an R0 resection by Dr. Tai Stanton at [facility], pathological specimen [id number] was notable for the absence of any residual carcinoma within the gallbladder bed. However, 2/8 regional lym ph nodes contained regionally metastatic disease. 3. Consultation by Dr. Elva Grey of the [facility] on May returned the recommendation for adjuvant chemoradiation therapy following [id number] as follows: Capecitabine at 750 mg/m sq [...] staging by Dr. Oziel Casillas of the [facility]. Pathological analysis was notable for 9.5 cm [...] with Dr. Elva Grey the [facility] in June 26, 2014 who recommended additional chemotherapy was cisplatin at 75 mg meter squared on day 1 a nd gemcitabine 1250 mg per meter squared on day one and day 8 of acute 21 day cycle for 6-8 cycles. A second opinion was obtained by Dr. Richie Thayer of the [facility]ance who returned the recommendation for additional [...] Richie Thayerof the [facility] with gemcitabine at 1000 mg per meter squared on day one and day 8 wi th cisplatin 25 mg meter squared on day one and day 8 of a Q 21 day cycle beginning on July 26, 2014 complicated by grade 3 neutropenia and grade [address] scan of the chest, abdomen and pelvis that [facility] on September 16, 2014 demonstrated no radiographic evidence of disease. Current Assessment & Plan Domo returned to clinic with her mother to initiate cycle #5 of cisplatin/gemcitabine for recurrent cholangiocarcinoma. 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 Previous analysis at [facility] in [place] confirmed adeq uate iron stores. A request for HIGINIO therapy was denied by her insurance provider. Plan; Initiate Cycle #5 Cis/gemcitabine for recurrent cholangiocarcioma. Treatment will be continued in [place] next week. Repeat imaging after Cycle#6 and if favorable, cross over to observation. Neoplasm related pain (acute) (chronic) Overview Pain due to recurrent cholangiocarcinoma. Current Assessment & Plan Patients with terminal and malignant pain will be exempt from the requirement for a writt en pain management agreement/narcotic contract. [[facility] Provider Maldonado ndbook of [...] has been changed since signin Order [facility] amitriptyline (ELAVIL) 10 mg tablet (Taking) Take 10 mg by mouth nightly. dexamethasone (DECADRON) 4 mg tablet (Taking) Take one tablet PO as directed. Number of times this order has been changed since signin Order [facility] docusate calcium (SURFAK) 240 mg capsule (Taking) Take 240 mg by mouth as needed. Number of times this order has been changed since signin Order [facility] fish oil 1,000 mg capsule (Taking) Take 1,000 mg by mouth Daily. Number of times this order has been changed since signin Order [facility] HYDROcodone-acetaminophen (VICODIN) 5-500 mg per tablet (Taking) Take 1 tablet by mouth e very 4 hours as needed. Number of times this order has been changed since signin Order [facility] MULTIPLE VITAMIN PO (Taking) Take by mouth Daily. Number of times this order has been changed since signin Order [facility] ondansetron (ZOFRAN ODT) 8 mg disintegrating tablet (Taking) Take 8 mg by mouth every 8 h ours as needed for Nausea. Probiotic Product (PROBIOTIC DAILY PO) (Taking) Take by mouth Daily. Number of times this order has been changed since signin Order [facility] [place] Allergy: Allergies Allergen Reactions Sulfa Antibiotics Objectives: Temp: 37 C (98.6 F) BP: 111/70 mmHg Pulse: 86 Resp: 16 SpO2: 99 % on Min/Max Temp past 24 hours:Temp Av C (98.6 F) Min: 37 C (98.6 F) Max: 37 C (98.6 F) No intake or output data in the 24 hours ending 10/31/14 6108 Wt. Admission: Weight: 83.5 kg (184 lb [...] therapy ( contact Gabrielle Bean RN at [facility] or [facility]). Begin procrit today. INFORMED CONSENT: The nature and character of the proposed treatment with Cisplatin and [place] citabine with HIGINIO therapy with Procrit and [...] for three days, on day 2,3,4 at [facility]. Gabrielle has the order and has [...] this chart may have been created with [email or web address] voice recognition software. Occasi onal wrong-word or [...] 2019 | Visit | | DO [address] [facility] | | | | | | [place] [address] | | | | | | [phone] | | | | | | | | +--------+---------+ + + + documented as of this encounter Visit Diagnoses + + | Diagnosis | + + | Gallbladder cancer, carcinoma (HCC) - Primary Malignant neoplasm of gallbladder | + + | Neoplasm related pain (acute) (chronic) | + + documented in this encounter
--- OUTSIDE RECORDS SUMMARY | ~2019-06-13 | XMS | Encounter Summary ---
Demographics + + + | Address | [address] | | | [place] [address] | + + + | Home Phone [...] | Author | [facility] | | | and [place]ardo[place] | + + + | Organization | [facility] | | | and [place]ardo[place] | + + + | Address | Unknown | + + + | Phone | Unavailable | + + + Support + + + + + | Name | Relationship | Address | Phone | + + + + + | Poncho Oquendo | ECON | [address] | | | | | [place] | | | | | [address] | | + + + + + | Marta Upton | ECON | [place] | | | | | [address] | | + + + + + Care Team Providers + +------+ + | Care Revenue Enforcement Collection Agent Name | Role | Phone | [...] | ONCOLOGY CLINIC [address] | [facility] | | | | | [facility] | [place] [address] | | | | | [place] [address] | [phone] | | | | | [phone] | | | +--------+ + + + [...] | | | | | [place] [address] | | | | | | [phone] | | | | | | | | +--------+---------+ + + + documented as of this encounter Visit Diagnoses Not on filedocumented in this encounter"
--- OUTSIDE RECORDS SUMMARY | ~2019-06-13 | XMS | Encounter Summary ---
Demographics + + + | Address | [address] | | | [place] [address] | + + + | Home Phone [...] Author | [facility] | | | and [place] | + + + | Organization | [facility] | | | and [place] | + + + | Address | Unknown | + + + | Phone | Unavailable | + + + Support + + + + + | Name | Relationship | Address | Phone | + + + + + | Poncho Oquendo | ECON | [address] | | | | | [place] | | | | | [address] | | + + + + + | Marta Upton | ECON | [place] | | | | | [address] | | + + + + + Care Team Providers + +------+ + | Care Synthetic Filament Extruder Name | Role | Phone | + +------+ + | Valeriy Carmona DO | PCP | | + +------+ + Encounter Details +--------+ + + + + | Date | Type | Department | Care Team | Description | +--------+ + + + + | 09/05/ | Orders Only | [facility] | Provider, | | | 2019 | | SYSTEM GENERIC OP | [address] | | | | | CONVERSION [address] | [address] | | | | | [address] [place], [place] | [place] [address] | | | | | [address] | | | | | | [phone] | | | +--------+ + + + [...] [address] | | | | | | [place] [address] | | | | | | [phone] | | | | | | | | +--------+---------+ + + + documented as of this encounter Visit Diagnoses Not on filedocumented in this encounter"
--- OUTSIDE RECORDS SUMMARY | ~2019-06-13 | XMS | Encounter Summary ---
Demographics + + + | Address | [address] | | | [place] [address] | + + + | Home Phone [...] Team Providers + +------+ + | Care Feed Mill Lab Technician Name | Role | Phone | + +------+ + | Tomasa Wagner | PCP | | + +------+ + Encounter Details +--------+ + + + + | Date | Type | Department | Care Team | Description | +--------+ + + + + | 10/02/ | Abstract | Digestive Health | Tai Stanton, | | | 2012 | | Center at [facility] [address] | [address] | | | | | [address] [facility] | [facility] | | | | | for Health and | [place], [place] | | | | | [facility], [place] [address] | [address] | | | | | [place], [place] | [phone] | | | | | [address] | | | | | | [phone] | | | +--------+ + + + [...]
--- OUTSIDE RECORDS SUMMARY | ~2019-06-13 | XMS | Encounter Summary ---
Demographics + + + | Address | [address] | | | [place] [address] | + + + | Home Phone [...] + | Author | [facility] | | | and [place] | + + + | Organization | [facility] | | | and [place] | + + + | Address | Unknown | + + + | Phone | Unavailable | + + + Support + + + + + | Name | Relationship | Address | Phone | + + + + + | Poncho Oquendo | ECON | [address] | | | | | [facility], [place] | | | | | [address] | | + + + + + | Marta Upton | ECON | [place], [place] | | | | | [address] | | + + + + + Care Team Providers + +------+ + | Care Roll Tension Tester Name | Role | Phone | + +------+ + PCP | Unavailable | + +------+ + Encounter Details +--------+ + + + + | Date | Type | Department | Care Team | Description | +--------+ + + + + | 10/19/ | Hospital | [facility] | | | | 2012 - | Encounter | [facility] | | | | | | CENTER [address] | | | | 11/13/ | | [place] | | | | 2012 | | [address] | | | | | | [phone] | | | +--------+ + + + [...] [address] | | | | | | [place] [address] | | | | | | [phone] | | | | | | | [...] + | [facility] | [address] | [place] | [phone] | | [facility] | | [address] | | | - LABORATORY | | | | + + + + + | [facility] | [address] | [place] | | | [facility] | | [address] | | | - LABORATORY [...] | | (formerly Mahad) Advia | | [facility] | | | | Centaur immunoassay [...] | | | | [address], [place], [place] | | | | | | [address] CLIA: | | | | | | [id number] | | | | + + + + + + + + | Specimen | + + | | + + + + + + + | Performing | Address | City/State/Zipcode | Phone Number | | Organization | | | | + + + + + | [facility] | [address] | [place] | [phone] | | [facility] | | [address] | | | - LABORATORY | | | | + + + + + | [facility] | [address] | [place] | | | [facility] | | [address], [facility] | | | [...] | | Phosphatase | | | [facility] | | [...] | | | | | | [facility] | | | | | | MEDICAL [...] + | [facility] | [address] | [place], [place] | [phone] | | [facility] | | [address] | | | - LABORATORY | | | | + + + + + | [facility] | [address] | [place] | | | [facility] | | [id number] [place] [address] | | | - LABORATORY | | [...] [address] | [place] | [phone] | | [facility] | | [address] | | | - LABORATORY | | | | + + + + + | [facility] | [address] | [place] | | | [facility] | | [address] | | | - LABORATORY | | | | + + + + + documented in this encounter Visit Diagnoses Not on filedocumented in this encounter"
--- OUTSIDE RECORDS SUMMARY | ~2019-06-13 | XMS | Encounter Summary ---
Demographics + + + | Address | [address] | | | [place] [address] | + + + | Home Phone [...] Author | [facility] | | | and Eduardoana | + + + | Organization | [facility] | | | and Eduardoana | + + + | Address | Unknown | + + + | Phone | Unavailable | + + + Support + + + + + | Name | Relationship | Address | Phone | + + + + + | Poncho Oquendo | ECON | [address] | | | | | [facility] [place] | | | | | [address] | | + + + + + | Marta Upton | ECON | [place] | | | | | [address] | | + + + + + Care Team Providers + +------+ + | Care Software Applications Engineer Name | Role | Phone | [...] + + | 11/29/ | Anesthesia | [facility] | Roger Callaway MD | | | 2018 | [facility] | [address] | | | | | OPERATING RO[address] | [place] [address] | | | | | [address] | [phone] | | | | | [place], [place] | | | | | | [address] | Cass Harris, | | | | | [phone] | MD [address] | | | | | | [place] [address] | | | | | | [phone] | | | | | | | | +--------+ + + + + Anesthesia Record + + + + + | Procedure Name | Responsible | Anesthesia Start | Anesthesia Stop Time | | | Anesthesiologist | Time | | + + + + + | CYSTOSCOPY URETERAL | Roger Callaway MD | 11/29/18 1329 | 11/29/18 1404 | | STENT stent removal | | [...] 11/29/18 1550 by | | eral | [id number] catheter system; | Kim Denson RN | [...] VD | | | | | | [place] [address] | | | | | | [phone] | | | | | | | [...]
--- OUTSIDE RECORDS SUMMARY | ~2019-06-13 | XMS | Encounter Summary ---
Demographics + + + | Address | [address] | | | [place] [address] | + + + | Home Phone [...] Team Providers + +------+ + | Care Decorator Mannequin Name | Role | Phone | + [...] + + | 04/28/ | Hospital | [facility] [address] | Cornelia Knutson, | | | 2012 - | Encounter | [facility] Mailcode: | [address] | | | | | [address] | [address] | | | 05/04/ | | [place], | [place], [place] | | | 2012 | | [place] [address] | [address] | | | | | [phone] | [phone] | | | | | | | [...] acute cholecystitis. Her pathology was reviewed at [facility]. She underwent a CT scan, which [...] working on arranging an appointm ent with [facility] Oncology for treatment planning. FINAL PATHOLOGY: [...] severe diarrhea.During normal business hours [facility] .For 'after hours' URGENT problems please call the [facility] mogul operator at and ask for the "Blue [...] None Your Follow-Up Plan Follow up with [facility] HEMATOLOGY ONCOLOGY CH. (Please expect a call from the Oncology clini c in the next several days to schedule an appointment with either Dr. Grey or Dr. Ledesma ) Contact information: [address] [facility] [address] Future Appointments Date & Time Provider Department Dept Phone Center 05/17/2012 11:30 AM CORNELIA KNUTSON MD [facility] [phone] Critical [facility] Discharging Physician: MARCO ANTONIO BEATTY NP Attending Physician: MD Marco Antonio Mauricio RN, MSN, COATING MACHINE FEEDER [facility] Blue Surgery Pager# [phone] 9:37 AM 05/04/2012 documented in this enc [...] 05/04/12 0659 05/04/12699 - 05/05/12 0659(Discharged) Shift 2257-0005 3170-0501 7101-1845 Daily Total 0364-7388 0835-5182 6197-2207 Daily Total I N T A K E P.O. 925 671 349 2106 500 500 I.V. 5 10 15 Shift Total 930 718 042 7197 500 500 O U T P U T Urine 1050 5691 179 2595 400 400 Urine 1050 4850 912 6649 400 400 Other Stool 1 1 Shift Total 1050 2434 680 7244 400 400 NET -120 -1090 205 -1005 [...] Attending Physician: Dr. Romy Beatty RN, MSN, COATING MACHINE FEEDER [facility] Blue Surgery Pager# [phone] 12:54 PM 05/04/2012 Current Inpatient Medications Medication [...] Parish Arias MD - 5:51 AM PDT [facility] Department of Surgery Blue Surgery Progress [...] 04/30/12 0659 04/30/12699 - 05/01/12 0659 Shift 4538-3421 8381-4258 8244-4099 Daily Total 7576-7318 4955-2464 2379-9387 Daily Total I N T A K E P.O. 620 179 623 5670 P.O. 620 836 319 7681 I.V. 1977.33 977.5 982.5 3937.33 0 0 [...] O U T P U T Urine 936 380 4998 2004 I/O Urinary Drain Output (Urinary Cath Placement López) 253 885 0418 2004 Shift Total 022 874 0537 2005 NET 2415.83 837.5 307.5 3560.83 0 [...] tomorrow Parish Blackburn MD Surgery, R1 Pager: [phone] ilvia Del Toro NP - 05/01/2012 2:19 PM PDTPain fairly well controlled on oral medications. No longer nauseated, tolerating 10 mg oxycodone Epidural catheter discontinued, tip intact. APS will sign off, please call us back if there are any pain related concerns for us to add ress. Silvia Del Toro NP Adult Pain Service Pager [phone] Team Pager [phone] Silvia Mckeon NP - 05/01/2012 8:56 AM [...] and summary of old medical records (source: [facility]), as summarized in the body of the note. SILVIA DEL TORO NP BILLING INFORMATION [facility] DEPARTMENT: [id number] Place of Service:- Inpatient Date of Service: 05/01/2012 CSN: [id number] Suggested Modifier: None Suggested CPT: 97146 - Daily mgmt epidural/subarachnoid drug administration Prolonged service: n/a Parish Arias MD - 05/01/2012 5:44 AM PDT [facility] Department of Surgery Blue Surgery Progress [...] Date 04/29/12699 - 04/30/1265804/30/12699 - 05/01/12658 Shift 6825-1163 4769-7831 5691-6701 Daily Total 9412-3362 3147-6947 0654-2259 Daily Total I N T A K E P.[address]. 620 908 875 4985 P.O. 620 820 300 2881 I.V. 1977.33 977.5 982.5 3937.33 0 0 [...] O U T P U T Urine 945 531 2590 2004 I/O Urinary Drain Output (Urinary Cath Placement López) 745 987 1118 2004 Shift Total 481 786 0451 2004 NET 2415.83 837.5 307.5 3560.83 0 [...] course Parish Blackburn MD Surgery, R1 Pager: [phone] Parish Arias MD - 11:59 AM PDT [facility] Department of Surgery Blue Surgery Progress [...] - 04/30/1259 04/30/12699 - 05/01/12 0659 Shift 1992-0275 8725-6646 3580-7621 Daily Total 6516-5999 0006-9823 7446-6519 Daily Total I N T A K E P.[address]. [address] 273 410 2246 P.O. 620 261 728 4884 I.V. 1977.33 977.5 982.5 3937.33 0 0 [...] O U T P U T Urine 115 844 9535 2004 I/O Urinary Drain Output (Urinary Cath Placement López) 883 876 3275 2004 Shift Total 069 146 1253 2004 NET 2415.83 837.5 307.5 3560.83 0 [...] course Parish Blackburn MD Surgery, R1 Pager: [phone] Sasha Antony MD - 04/30/2012 7:03 AM [...] primary service. JOSE MALAGON MD BILLING INFORMATION [facility] DEPARTMENT: [id number] Place of Service:- Inpatient Date of Service: 04/30/2012 CSN: [id number] Suggested Modifier: GC - Resident Involved Suggested CPT: 25924 - Daily mgmt epidural/subarachnoid drug administration Prolonged [...] the floor later today. 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[employer] Hypotension Fluid bolus as needed to [...] no need for intervention Dispo TRANSFER TO [facility] ONLY Sasha Antony MD - 04/29/2012 [...] making: N/a JOSE MALAGON MD BILLING INFORMATION [facility] DEPARTMENT: [id number] Place of Service:- Inpatient Date of Service: 04/29/2012 CSN: [id number] Suggested Modifier: GC - Resident Involved Suggested CPT: 91588 - Daily mgmt epidural/subarachnoid drug administration Prolonged [...] MD Department of Obstetrics & Gynecology, PGY1 [facility] Pager [phone] documented in thi s encounter Plan of [...] AT,GLUC,CA,AST,ALT,B | | | | | | CIRLIO TOTAL,ALK | | | | | | [...] [facility] | [address] | [place] [address] | | | SERVICES, CORE | PARK [...] + | [facility] | [address] | [place] [address] | | | SERVICES, CORE | PARK [...] | + + + + + | [facility] | [address] | [place] [address] | | | SERVICES, CORE | NEAL [...] | + + + + + | [facility] | [address] | [place] [address] | | | GAVIN, SAM | NEAL [...] [facility] | [address] | [place] [address] | | | SERVICES, CORE | PARK [...] + + | [facility] | [address] | [place] [address] | | | SERVICES, CORE | PARK [...] | + + + + + | [facility] | [address] | [place] [address] | | | SERVICES, CORE | NEAL [...] [facility] | [address] | [place] [address] | | | SERVICES, CORE | PARK [...] + | [facility] | [address] | [place] [address] | | | SERVICES, CORE | NEAL [...] (H) | 60 - 99 mg/dL | [facility] - | | | GLUCOSE, | [...] + + + | [facility] | [address] | [place], [place] | | | [facility] | [address] | [address] | | | TESTS | | | [...] | + + + + + | [facility] | [address] | [place] [address] | | | SERVICES, CORE | NEAL [...] KANNAN | [address] | [place], [place] | | | [facility]TE [facility] | [address] | [address] | | | TESTS | | | [...] + | [facility] | [address] | [place] [address] | | | SERVICES, CORE | [address] | | | + + + + + MAGNESIUM, PLASMA (05/01/2012 6:03 AM PDT) + +-------+ + + + | Component | Value | Ref Range | Performed | Pathologist | | | | | At | Signature | + +-------+ + + + | MAGNESIUM,P | 1.9 | 1.8 - 2.5 mg/dL | I[facility]Y | | | LASMA | | | [...] | + + + + + | [facility] | [address] | [place] [address] | | | SERVICES, CORE | NEAL [...] | + + + + + | [facility] | [address] | [place] [address] | | | SAM ALONSO | NEAL [...] (H) | 60 - 99 mg/dL | [facility] - | | | GLUCOSE, | [...] NAELAM | [address] | [place], [place] | | | [facility] | [address] | [address] | | | TESTS | | | [...] BRUNNER | [address] | [place], [place] | | | [facility] | [facility] | [address] | | | TESTS | | | [...] | + + + + + | [facility] | [address] | [place] [address] | | | SERVICES, CORE | NEAL [...] + + + | [facility] | [address] | [place] [address] | | | SERVICES, CORE | NEAL [...] [facility] | [address] | [place] [address] | | | SERVICES, [facility] [...] [facility] | [address] | [place] [address] | | | SERVICES, CORE | [address] | | | + + + + + OPERATION RECORD (04/29/2012 5:13 PM PDT) + + | Transcriptions | + + | Ruba Muhammad MD - 04/28/2012 10:30 PM PDT Date: | | 04/28/2012ttending Surgeon: Cornelia Knutson M.D.Iron Handler(s): | | VENKATA Mcclainreoperative Diagnosis(es):Gallbladder | | [...] with an incidental finding of | | N5chekzsrwmrp adenocarcinoma at her recent laparoscopic cholecystectomy foracute | | cholecystitis. Her pathology was reviewed at [facility]. She underwent aCT scan, which | [...] for RSI | | was completed.Cornelia Knutson M.D.[facility] ([facility])Professor | | and Vice-Program Services Assistant of SurgeryThe Shahriar Nava Chair for Pancreatic Disease | | ResearchPancreatic/ HepatoBiliary and Foregut Working GroupsMail Code [id number] [facility] | | [place], [place]. [address]Oihtr Fax [phone] | | [phone]: [email or web address] M.[email or web address].Professor and Vice-Program Services Assistant of | | SurgeryThe Shahriar Nava Chair for Pancreatic Disease ResearchMemphis Mental Health Institute | | [place] ([facility])Division of Gastrointestinal and General Surgery / [id number] / | | 183083 / 18823 / T: 04/28/2012 | |with electrocautery. Biopsy [...] case we needed to perform a | |Whittier maneuver. We then finished the dissection identifying [...] | | | |Cornelia Knutson M.D. | |[facility] ([facility]) | |Professor and Vice-Program Services Assistant of Surgery | |The Shahriar Nava Chair for Pancreatic Disease Research | |Pancreatic/ HepatoBiliary and Foregut Working Groups | |Mail Code [phone] | |[address] [place] [address] | |[place], [place]. [address] | | | | | |email: [email or web address] | | | | | |Cornelia Knutson M.D. | |Professor and Vice-Program Services Assistant of Surgery | |The Shahriar Nava Chair for Pancreatic Disease Research | |[facility] ([facility]) | |Division of Gastrointestinal and General Surgery | | | |JS / HS | |[id number] / [id number] / [id number] / | | | | | + [...] [facility] | [address] | [place] [address] | | | SERVICES, CORE | PARK [...] + | [facility] | [address] | [place] [address] | | | SERVICES, CORE | PARK [...] | + + + + + | [facility] | [address] | [place] [address] | | | SERVICES, CORE | NEAL [...] | + + + + + | [facility] | [address] | [place] [address] | | | SERVICES, CORE | NEAL [...] | | | | [facility]. No | | | | | [...] | | + +---------+ + + | [facility] DEPARTMENT OF | | | | [...] [facility] | [address] | [place] [address] | | | SERVICES, CORE | PARK [...] | + + + + + | [facility] | [address] | [place] [address] | | | SERVICES, CORE | PARK [...] | + + + + + | [facility] | [address] | [place] [address] | | | SERVICES, CORE | PARK [...] + | [facility] | [address] | [place] [address] | | | SERVICES, CORE | [address] | | | + + + + + INR (04/28/2012 2:34 PM PDT) + +-------+ + + + | Component | Value | Ref Range | Performed | Pathologist | | | | | At | Signature | + +-------+ + + + | INR | 1.11 | 0.90 - 1.20 INR | [facility] | | | | | | LABORATORY [...] + | [facility] | [address] | [place] [address] | | | SAM ALONSO | PARK [...] - MARQU[facility] | [address] | [place], [place] | | | [facility] OF CARE | [address] | [address] | | | TESTS | | | [...] BRUNNER | [address] | [place], [place] | | | [facility] | [address] | [address] | | | TESTS | | | [...] KANNAN | [address] | [place], [place] | | | [facility] CARE | [address] | [address] | | | TESTS | | | [...] KANNAN | [address] | [place], [place] | | | [facility] | [address] | [address] | | | TESTS | | | [...] BRUNNER | [address] | [place], [place] | | | [facility]ARE | [address] | [address] | | | TESTS | | | [...] MARQUAM | [address] | [place], [place] | | | [facility]ARE | [address] | [address] | | | TESTS | | | [...] MARQUAM | [address] | [place], [place] | | | [facility] | [facility] | [address] | | | TESTS | | | [...] + + + | [facility] | [address] | [place], [place] | | | [facility] | [address] | [address] | | | TESTS | | | [...] bed. | | | | | | Clockmaker Apprentice | | | | | | [...] vein. | | | | | | Clockmaker Apprentice | | | | | | [...] | | | | | | [id number], direct marketing representative | | | | | [...] | + + + + + | [facility][1] | [address] | [place] [address] | | | PATHOLOGY | [address] [...]
--- OUTSIDE RECORDS SUMMARY | ~2019-06-13 | XMS | Encounter Summary ---
Demographics + + + | Address | [address] | | | [place] [address] | + + + | Home Phone [...] Team Providers + +------+ + | Care Oxyacetylene Cutter Name | Role | Phone | [...] Refill Request | | 2013 | | Center at [facility] [address] | [address] | | | | | [address] [facility] | [address] | | | | | for Health and | [place], [place] | | | | | [facility] [address] | [address] | | | | | [place], [place] | [phone] | | | | | [address] | | | | | | [phone] | | | +--------+ + + + [...]
--- OUTSIDE RECORDS SUMMARY | ~2019-06-13 | XMS | Encounter Summary ---
Demographics + + + | Address | [address] | | | [place] [address] | + + + | Home Phone [...] | Author | [facility] | | | and Eduardoana | + + + | Organization | [facility] | | | and Eduardoana | + + + | Address | Unknown | + + + | Phone | Unavailable | + + + Support + + + + + | Name | Relationship | Address | Phone | + + + + + | Poncho Oquendo | ECON | [address] | | | | | [place] | | | | | [address] | | + + + + + | Marta Upton | ECON | [address] | | | | | [address] | | + + + + + Care Team Providers + +------+ + | Care Nutrition Intern Name | Role | Phone | [...] | | | [facility] CL[facility] [address] | [facility] | | | | | [address] [facility] | [place] [address] | | | | | [place] [address] | [phone] | | | | | [phone] | | | +--------+ + + + [...] | | | | | | [address] [facility] [address] | | | | | | [phone] | | | | | | | | +--------+---------+ + + + documented as of this encounter Visit Diagnoses Not on filedocumented in this encounter"
--- OUTSIDE RECORDS SUMMARY | ~2019-06-13 | XMS | Encounter Summary ---
Demographics + + + | Address | [address] | | | [place] [address] | + + + | Home Phone [...] [facility] | | | and Eduardoana | + + + | Organization | [facility] | | | and Eduardoana | + + + | Address | Unknown | + + + | Phone | Unavailable | + + + Support + + + + + | Name | Relationship | Address | Phone | + + + + + | Poncho Oquendo | ECON | [address] | | | | | [place] | | | | | [address] | | + + + + + | Marta Upton | ECON | [place] | | | | | [address] | | + + + + + Care Team Providers + +------+ + | Care Customer Care Voice Consultant Name | Role | Phone | [...] [address] [place] | | | | | [place], | [place] [address] | | | | | [place] [address] | [phone] | | | | | [phone] | | | +--------+ + + + [...] [address] | | | | | | [place] [address] | | | | | | [phone] | | | | | | | [...] At | + + + | EXAM: [facility] TOMOSYN DIAGNOSTIC RIGHT [...]
--- OUTSIDE RECORDS SUMMARY | ~2019-06-13 | XMS | Encounter Summary ---
Demographics + + + | Address | [address] | | | [place] [address] | + + + | Home Phone [...] | | | Reconstructive | Velma [place], | | | | | Services at [facility] | [place] [address] | | | | | [address] | [phone] | | | | | Mailcode: [address] | | | | | | [facility] | | | | | | and Healing, | | | | | | Building | | | | | | [place], [place] | | | | | | [address] | | | | | | [phone] | | | +--------+ + + + [...]
--- OUTSIDE RECORDS SUMMARY | ~2019-06-13 | XMS | Encounter Summary ---
Demographics + + + | Address | [address] | | | [place] [address] | + + + | Home Phone [...] Team Providers + +------+ + | Care Area Operations Director Name | Role | Phone | + +------+ + | Tomasa Wagner | PCP | | + +------+ + Encounter Details +--------+ + + + + | Date | Type | Department | Care Team | Description | +--------+ + + + + | 07/12/ | Abstract | Digestive Health | Tai Stanton, | | | 2013 | | Center at [facility] [address] | [address] | | | | | [address] [facility] | [facility] | | | | | for Health and | [place], [place] | | | | | [facility] [place] [address] | [address] | | | | | [place], [place] | [phone] | | | | | [address] | | | | | | [phone] | | | +--------+ + + + [...]
--- OUTSIDE RECORDS SUMMARY | ~2019-06-13 | XMS | Encounter Summary ---
Demographics + + + | Address | [address] | | | [place] [address] | + + + | Home Phone [...] Author | [facility] | | | and Eduardoana | + + + | Organization | [facility] | | | and Eduardoana | + + + | Address | Unknown | + + + | Phone | Unavailable | + + + Support + + + + + | Name | Relationship | Address | Phone | + + + + + | Poncho Oquendo | ECON | [address] | | | | | [place] | | | | | [address] | | + + + + + | Marta Upton | ECON | [place] | | | | | [address] | | + + + + + Care Team Providers + +------+ + | Care Supervising Nurse Name | Role | Phone | [...] + + | 05/30/ | Refill | [facility] | Reinaldo, | Medication Refill | | 2019 | | [facility] | Epifanio Soler MD [address] | | | | | [facility] CL[facility] [address] | [address] [facility] | | | | | [address] | [place] [address] | | | | | [place] [address] | [phone] | | | | | [phone] | | | +--------+--------+ + + + [...] BOYS | | | | | | [place] [address] | | | | | | [phone] | | | | | | | | +--------+---------+ + + + documented as of this encounter Visit Diagnoses + + | Diagnosis | + + | Gallbladder cancer, 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
--- OUTSIDE RECORDS SUMMARY | ~2019-06-13 | XMS | Encounter Summary ---
Demographics + + + | Address | [address] | | | [place] [address] | + + + | Home Phone [...] Team Providers + +------+ + | Care Vice President Of Product Marketing Name | Role | Phone | [...] HIEN Maya | | | | | [place], [place] | [address] | | | 12/27/ | | [address] | [place], [place] | | | 2017 | | [phone] | [address] | | | | | | [phone] | | | | | | | | | | | | Marbin Espinoza MD | | | | | | [address] | | | | | | [place], | | | | | | [place] [address] | | | | | | [phone] | | | | | | | | | | | | Lloyd Garcia, | | | | | | [address] | | | | | | [address] | | | | | | [place], [place] | | | | | | [address] | | | | | | [phone] | | | | | | | [...] might be differen t from the original. [facility] Discharge Summary Discharging Provider: RAGHU JARRETT MD [...] Klebsiella bacteremia # infected portacath At [facility], Ms. Upton was hypotensive to 70/40s with fever concerning for septic s hock. She received IV fluids and 1 unit pRBCs for Hgb of 7.0 and was transferred to [facility] further care. On admission to [facility], she was no longer hypotensive and did not require vasopressors. She was started on cefepime, flagyl, and vancomycin. Blood cultures at OSH fro m 12/23 revealed Klebsiella pneumoniae from both R hand and portacath. It was pansentitive. I nfectious disease was consulted who found that pt has Klebsiella bacteremia 1 month ago joyce whiting admitted to [facility] for sepsis. Given 2 bacteremic events, portacath [...] Culture from cath tip 12/27: pending [facility] Blood culture 12/23 x2 (peripheral and port) GNR; cx Klebsiella pneumonia (R: ampicillin; s: cefazolin, ceftriaxone, meropenem, ciprofloxacin, tmp/smx) Discharge Medications: Medication List START taking these medications ciprofloxacin HCl 500 mg Tab Commonly known as: CIPRO Take 1 tablet by mouth every twelve hours. Indications: port infection NARCAN 4 mg/actuation Elcho Generic drug: naloxone Instill 1 spray into [...] [address] [place] [address] VALERIY CARMONA MD . Specialty: Family Medicine Contact information [facility] [address] [place] [address] Discharge Physical Exam: Last 24 hour min/max [...] Raghu Jarrett M.D. Internal Medicine PGY-3 Pager [phone] Associated attestation - Lloyd Garcia MD - 12/27/2017 10:01 [address] [facility] Date of admission: 12/23/2017 [...] and follow up plan. Lloyd Garcia MD Front End Application Developerautomatic coil machine operator Clinical Hospitalist and Medicine Teaching Service Division of [facility] Medicine Pager [phone] Patients Hospital Problem List: Active Hospital Problems [...] MD - 12/27/2017 12:40 PM PST{Diet Inst ructions:80460} Discharge Instr - Activity (facility) Lloyd Garcia MD - 12/27/2017 12:40 PM PST{Activ ity Orders:73548} Additional Instructions Lloyd Garcia MD - 12/27/2017 12:39 PM PST{Additional Instruct ions AVS:06862} Opioid Pain Management {Opioid pain medication plan:04562} documented in this encounter Medications at Time [...] 15 oz) (12/23/172321) Physical Exam: General: pleasant jsc-izecs-evivssdvp woman lying in bed in no acute [...] BID Microbiology: 11/07 blood culture at [facility] also grew klebsiella pneumoniae, when she had sepsis 12/23 blood culture at [facility] Klebsiella pneumoniae NGTD 12/23 blood cultures here Imaging: No new imaging Hospital problem list: Patient Active Problem List Diagnosis Date Noted Bacteremia due to Gram-negative bacteria 12/24/2017 Priority: 1 JULY (acute kidney injury) (HCC) 12/24/2017 Priority: 2 Cholangiocarcinoma (HCC) 04/27/2012 Priority: 3 Overview Note: -Diagnosed 2012. Followed by Dr. Ragland at [facility] in [place]. -04/26/2012: R0 Resection. -05/31/2012-09/03/2012 Chemotherapy: Xeloda/gemictabine x4 [...] her port has been used. Records per [facility] from 11/07 and 12/23. Was [...] cycle on 12/23. Followed by Dr Arley rmairez - update Dr. Ragland in [place] on Tuesday # thrombocytopenia Likely chemotherapy related [...] Maker Primary Surrogate Decision Maker Poncho Oquendo [phone] Patient was staffed with my attending Dr. Garcia who agrees with my assessment and plan unl ess otherwise indicated. Myriam Holt MD 12/25/2017 PGY1 physician [id number] Associated attestation - Lloyd Garcia MD - 12/26/2017 9:53 PM PSTGENERAL MEDICINE [place] OGRESS NOTE ATTESTATION Date of admission: 12/23/2017 [...] removal, documenting, reviewing records. Lloyd Garcia MD Front End Application Developerautomatic coil machine operator Clinical Hospitalist and Medicine Teaching Service Division of [facility] Medicine Pager [phone] Patients Hospital Problem List: Active Hospital Problems 1) *Bacteremia due to Gram-negative bacteria 2) JULY (acute kidney injury) (HCC) 3) Chronic use of opiate drugs therapeutic purposes 4) Hx of small bowel obstruction 5) Gastrostomy tube in place (HCC) 6) Insomnia 7) Moderate protein-calorie malnutrition (HCC) Myriam Holt MD - 12/25/2017 10:08 AM PSTFormatting of this note might be different from e original. [facility] Progress Note 12/25/2017 Admit Date: 12/23/2017 Hospital Day: 2 Attending Physician: Dr. Marbin Espinoza 24 Hour Events/ Subjective: -transferred to [facility] from intensive care -"take out my port [...] 15 oz) (12/23/172) Physical Exam: General: pleasant isz-mlscm-tfajsohxv woman lying in bed in no acute [...] oral BID Microbiology: 12/23 blood culture at [facility] gram negative bacilli NGTD 12/23 blood cultures here Imaging: No new imaging Hospital problem list: Patient Active Problem List Diagnosis Date Noted Bacteremia due to Gram-negative bacteria 12/24/2017 Priority: 1 JULY (acute kidney injury) (HCC) 12/24/2017 Priority: 2 Cholangiocarcinoma (HCC) 04/27/2012 Priority: 3 Overview Note: -Diagnosed 2012. Followed by Dr. Ragland at [facility] in [place]. -04/26/2012: R0 Resection. -05/31/2012-09/03/2012 Chemotherapy: Xeloda/gemictabine x4 [...] Maker Primary Surrogate Decision Maker Poncho Oquendo [phone] Patient will be staffed with my attending physician, Dr. Marbin Espinoza, within 24 hours. Myriam Holt MD 12/25/2017 PGY1 physician [id number] Associated attestation - Marbin Espinoza MD - 12/25/2017 7:16 PM PSTI agree with bita carmen resident note. For additional information, please refer to my note from today's date. Marbin Espinoza MD Clinical Hospitalist & Medical Teaching Services [facility] Pager [phone] Smitha Paul MD - 12/24/2017 11:28 AM PSTFormatting of this note might be different fro m the original. MICU Attending Note Admission Date: 12/23/2017 Length of stay: 1 days ID: Aura Upton is a 57 y.o. female with metastatic cholangiocarcinoma (on palliative chemotherapy with gemcitabine/cisplatin q3wk) admitted to the MICU from [place] for suspec ashley septic shock. Present on [...] longer critica lly ill. SMITHA PAUL MD [facility] [address] [place] [address] Brittany Crouch MD - 12/24/2017 6:14 AM PST [facility] MEDICAL ICU - PROGRESS NOTE Hospital Day: 1 | ICU Day: 1 ID/CC: Aura Upton is a 57 y.o. woman w/ metastatic cholangiocarcinoma (on palliative chemotherapy with gemcitabine/cisplatin q3wk) admitted to the MICU from [place] for suspe cted septic shock. Consultants: HIEN, [...] the duration of her hospital ization at [facility] and continued to have intermittent fevers and chills while she was there. S he was frustrated with [facility] because they would only send her to [...] gemcitabine/carboplatin q3wk) admitted to the MICU from [place] for suspected s eptic shock. Neurological # [...] Oquendo, Brittany Dean MD Anesthesiology PGY-1 p: [phone] 12/24/2017, 6:14 AM Template created by [employer] [...] (gemcitabine/carboplatin) for metastatic cholangiocarcinoma. Since arrival to [place] E D has received 4L fluid and [...] floor. Dagoberto Iniguez MD Pulmonary/Critical Care Medicine [phone] documented in this en counter Plan of [...] POC | | PST | ([facility]) | results section. | + [...] POC | | PST | ([facility]) | results section. | + +--------+ + + + | CAPILLARY BLOOD | Routin | 12/27/2017 | Sepsis, due to | Results for this | | GLUCOSE (NO CHG), | e | 8:27 AM | unspecified organism | procedure are in the | | POC | | PST | ([facility]) | results section. | + [...] POC | | PST | ([facility]) | results section. | + +--------+ + + + | CAPILLARY BLOOD | Routin | 12/26/2017 | Sepsis, due to | Results for this | | GLUCOSE (NO CHG), | e | 11:23 AM | unspecified organism | procedure are in the | | POC | | PST | ([facility]) | results section. | + +--------+ + + + | CAPILLARY BLOOD | Routin | 12/26/2017 | Sepsis, due to | Results for this | | GLUCOSE (NO CHG), | e | 10:12 AM | unspecified organism | procedure are in the | | POC | | PST | ([facility]) | results section. | + [...] POC | | PST | ([facility]) | results section. | + +--------+ + + + | CAPILLARY BLOOD | Routin | 12/25/2017 | Sepsis, due to | Results for this | | GLUCOSE (NO CHG), | e | 1:41 PM | unspecified organism | procedure are in the | | POC | | PST | ([facility]) | results section. | + [...] POC | | PST | ([facility]) | results section. | + +--------+ + + + | CAPILLARY BLOOD | Routin | 12/25/2017 | Sepsis, due to | Results for this | | GLUCOSE (NO CHG), | e | 12:31 AM | unspecified organism | procedure are in the | | POC | | PST | ([facility]) | results section. | + [...] | + +--------+ + + + | [address] / | Routin | 12/24/2017 [...] POC | | PST | ([facility]) | results section. | + [...] KANNAN | [address] | [place], [place] | | | [facility] | [address] | [address] | | | TESTS | | | [...] + | GRAY - AIRPORT - | [address] | [place] [address] | | | [place] | | | | + + + [...] BRUNNER | [address] | [place], [place] | | | JOHN CONTE OF CARE | [address] | [address] | | | TESTS | | | [...] BRUNNER | [address] | [place], [place] | | | [facility] [place] | [address] | [address] | | | TESTS | | | [...] + + + + | [facility] | [address] | [place] [address] | | | SERVICES, CORE | NEAL [...] | | | LABORATORY | | | PERUVIAN | | | SERVICES, | | | [...] | + + + + + | [facility] | [address] | [place] [address] | | | SERVICES, CORE | NEAL [...] | + + + + + | GWNE BRUNNER | [address] | [place], [place] | | | [facility] [place] | [address] | [address] | | | TESTS | | | [...] MARQUAM | [address] | [place], [place] | | | JOHN CONTE OF CARE | [address] | [address] | | | TESTS | | | [...] - KANNAN | [address] | [place], [place] | | | [facility] | [address] | [address] | | | TESTS | | | [...] | | | LABORATORY | | | PERUVIAN | | | SERVICES, | | | [...] the MDRD equation recommended by the | [facility] | | National Kidney Disease Education [...] | + + + + + | [facility] | [address] | [place] [address] | | | SAM ALONSO | NEAL [...] 95 | 60 - 99 mg/dL | [facility] - | | | [...] NAELAM | [address] | [place], [place] | | | [facility] [place] | [address] | [address] | | | TESTS | | | [...] BRUNNER | [address] | [place], [place] | | | [facility] [place] | [facility] | [address] | | | TESTS | | | [...] [facility] | [address] | [place] [address] | | | SERVICES, CORE | [address] [...] [facility] | [address] | [place] [address] | | | SERVICES, CORE | [address] | | | + + + + + CULTURE, BLOOD BACTI & YEAST [facility] (12/25/2017 7:18 AM PST) + + [...] + + + + | [facility] | [address] | [place] [address] | | | SERVICES, CORE | NEAL [...] [facility] | [address] | [place] [address] | | | SERVICES, CORE | [address] [...] | + + + + + | [facility] | [address] [facility] | [place] [address] | | | SERVICES, CORE | NEAL [...] | | | LABORATORY | | | PERUVIAN | | | SERVICES, | | | [...] + + + + | [facility] | [address] | [place] [address] | | | SERVICES, CORE | NEAL [...] MARQUAM | [address] | [place], [place] | | | DG POINT OF CARE | [address] | [address] | | | TESTS | | | [...] + | [facility] | [address] [facility] [address] | [place], [place] | | | DG CRANE OF [facility] | [facility] | [address] | | | TESTS | | | [...] + + + + | [facility] | [address] [facility] | [place] [address] | | | SERVICES, CORE | [address] [...] [facility] | [address] | [place] [address] | | | SERVICES, CORE | [address] [...] [facility] | [address] | [place] [address] | | | SERVICES, SAM | [address] [...] | + + + + + | [facility] | [address] [facility] [address] [address] | [place] [address] | | | [facility] | [address] | | | + [...] At | + + + | EXAM: [place] CHEST 1 VIEW HISTORY: fever COMPARISON: Outside [...] Interface - 12/24/2017 1:05 PM PST EXAM: [place] CHEST 1 | | VIEW HISTORY: fever [...] | + + + + + | [facility] | [address] | [place] [address] | | | SERVICES, CORE | NEAL [...] + + + + | [facility] | [address] | [place] [address] | | | SERVICES, CORE | P[address] [...] + + + + | [facility] | [address] [facility] [address] | [place] [address] | | | SERVICES, CORE | NEAL [...] | | | LABORATORY | | | PERUVIAN | | | SERVICES, | | | [...] + + + + | [facility] | [address] [facility] [address] | [place] [address] | | | SERVICES, SAM | NEAL [...] [facility] | [address] | [place] [address] | | | SERVICES, CORE | NEAL [...] DEPT OF | [address] | [place], [place] | | | CARDIOLOGY | [address] | [address] | | + + + + + [...] BRUNNER | [address] | [place], [place] | | | DG POINT OF CARE | [address] | [address] | | | TESTS | | | [...] | + + + + + | [facility] | [address] | [place] [address] | | | SERVICES, CORE | [address] [...] [facility] | [address] | [place] [address] | | | SERVICES, CORE | [address] [...] [facility] | [address] | [place] [address] | | | SERVICES, CORE | [address] [...] [facility] | [address] | [place] [address] | | | SERVICES, CORE | [address] [...] [facility] | [address] | [place] [address] | | | SERVICES, | [address] [...] [facility] | [address] | [place] [address] | | | SERVICES, | [address] [...] + + | [facility] | [address] [facility] | [place] [address] | | | SERVICES, CORE | NEAL [...] | | | LABORATORY | | | PERUVIAN | | | SERVICES, | | | [...] the MDRD equation recommended by the | [facility] | | National Kidney Disease Education [...] | + + + + + | [facility] | [address] | [place] [address] | | | SAM ALONSO | NEAL [...]
--- OUTSIDE RECORDS SUMMARY | ~2019-06-13 | XMS | Encounter Summary ---
Demographics + + + | Address | [address] | | | [place] [address] | + + + | Home Phone [...] | Author | [facility] | | | and [place] | + + + | Organization | [facility] | | | and Eduardo[place] | + + + | Address | Unknown | + + + | Phone | Unavailable | + + + Support + + + + + | Name | Relationship | Address | Phone | + + + + + | Poncho Oquendo | ECON | [address] | | | | | [facility] [place] | | | | | [address] | | + + + + + | Marta Corbin | ECON | [place], [place] | | | | | [address] | | + + + + + Care Team Providers + +------+ + | Care Clinical Care Leader Name | Role | Phone | + +------+ + PCP | Unavailable | + +------+ + Encounter Details +--------+ + + + + | Date | Type | Department | Care Team | Description | +--------+ + + + + | 09/28/ | Hospital | [facility] | | | | 2012 | Encounter | MED CTR XRAY [address] | | | | | | [address] [place] | | | | | | [place] [address] | | | | | | [phone] | | | +--------+ + + + [...] [address] | | | | | | [place] [address] | | | | | | [phone] | | | | | | | [...] Performed At | + + + | [facility] Diagnostic Imaging | [place] | | Department [address] [place] [address] | [facility] | | [ rep [address] [ rep [facility] | | st zip] Signed | - IMAGING | | | | | Patient Name: AURA CORBIN Physician: | | | SHEP.20 : 1960 Age: 51 Sex: F Unit #: [id number] | | | Exam Date: 09/28/12 Location: [facility] | | | Report #: [id number] Page: | | | %(RAD)RES..mtdd.print.filter("pg") of %(RAD) | | | RES..mtdd.print.filter("tpg") | | | | | | Accession Number: [id number] | | | ABDOMINAL ULTRASOUND, 09/28/2012 CLINICAL [...] | | | demonstrates increased echogenicity, likely technical service representative of fatty | | | infiltration. [...] Transcribed | | | Date/Time: 09/28/2012 12:53 Government Affairs Director: | | | <<Signature on File>> | | | Jj | | | MD Franck09/28/12 2019 <Electronically signed by Jj Juárez MD> | | | Jj Juárez MD 09/28/12 1230 Government Affairs Director: [employer] | | | Jayucuyuiunuh01/15/13 3374 Tai Stanton MD | | | Tej Boyce DO | | + + + + + + + + | Performing | Address | City/State/Zipcode | Phone Number | | Organization | | | | + + + + + | [facility] | [address] | [place] | [phone] | | [facility] | | [address] | | | - IMAGING | | | | + + + + + XR Abdomen AP (09/28/2012 10:03 AM PDT) + + | Specimen | + + | | + + + + + | Narrative | Performed At | + + + | Accession Number: [id number] ABDOMINAL ULTRASOUND, | | | 09/28/2012 CLINICAL [...] demonstrates increased | | | echogenicity, likely technical service representative of fatty infiltration. There is | [...] Transcribed | | | Date/Time: 09/28/2012 12:53 Government Affairs Director: | | | <<Signature on File>> | | | Jj | | | MD Franck09/28/12 2019 <Electronically signed by Jj Juárez MD> | | | Jj Juárez MD 09/28/12 1230 Government Affairs Director: [employer] | | | Pluhoitrvbtsm60/15/13 1253 MD Tej Ramachandran, DO | | | | | + + + + + | Procedure Note | + + | Edmundo, Rad Results In - 07/07/2015 9:27 AM PDT Accession Number: [id number] | | ULTRASOUND, 09/28/2012 CLINICAL HISTORY: HISTORY [...] pancreas demonstrates increased | | echogenicity, likely technical service representative of fatty infiltration. There is limited [...] MD>Jj Juárez MD 09/28/12 | | 1230Transcriptionist: [employer] Qqdlfrmekiwrn11/15/13 1253BNusrat Holliday, | | DO | |There [...] 12:30 | |Transcribed Date/Time: 09/28/2012 12:53 | |Government Affairs Director: | | | | | | | |<<Signature on File>> | | | |Jj Juárez MD09/28/12 2019 | |<Electronically signed by Jj Juárez MD> | | | | | |Jj Juárez MD 09/28/12 1230 | |Government Affairs Director: [employer] Rhwdgvypmdkrf96/15/13 1253 | | | | | |Tai Stanton MD | |Tej Boyce, DO | + + documented in this encounter Visit Diagnoses Not on filedocumented in this encounter
--- OUTSIDE RECORDS SUMMARY | ~2019-06-13 | XMS | Encounter Summary ---
Demographics + + + | Address | [address] | | | [place] [address] | + + + | Home Phone [...] Author | [facility] | | | and Eduardo[place] | + + + | Organization | [facility] | | | and Eduardo[place] | + + + | Address | Unknown | + + + | Phone | Unavailable | + + + Support + + + + + | Name | Relationship | Address | Phone | + + + + + | Poncho Oquendo | ECON | [address] | | | | | [place] | | | | | [address] | | + + + + + | Marta Upton | ECON | [place] | | | | | [address] | | + + + + + Care Team Providers + +------+ + | Care Helper Driver Name | Role | Phone | [...] | | | [facility] [address] | [facility] | | | | | [address] [facility] | [place] [address] | | | | | [place] [address] | [phone] | | | | | [phone] | | | +--------+ + + + [...] | | | | | [place] [address] | | | | | | [phone] | | | | | | | | +--------+---------+ + + + documented as of this encounter Visit Diagnoses Not on filedocumented in this encounter"
--- OUTSIDE RECORDS SUMMARY | ~2019-06-13 | XMS | Encounter Summary ---
Demographics + + + | Address | [address] | | | [place] [address] | + + + | Home Phone [...] Team Providers + +------+ + | Care Straightedge Man Name | Role | Phone | [...] | | | Reconstructive | [place], | | | | | Services at [facility] | [place] [address] | | | | | [address] | [phone] | | | | | Mailcode: [address] | | | | | | [facility] | | | | | | and Healing, | | | | | | Building | | | | | | [place], [place] | | | | | | [address] | | | | | | [phone] | | | +--------+ + + + [...]
--- OUTSIDE RECORDS SUMMARY | ~2019-06-13 | XMS | Encounter Summary ---
Demographics + + + | Address | [address] | | | [place] [address] | + + + | Home Phone [...] Author | [facility] | | | and Eduardoana | + + + | Organization | [facility] | | | and Eduardoana | + + + | Address | Unknown | + + + | Phone | Unavailable | + + + Support + + + + + | Name | Relationship | Address | Phone | + + + + + | Poncho Oquendo | ECON | [address] | | | | | [place] | | | | | [address] | | + + + + + | Marta Upton | ECON | [place] | | | | | [address] | | + + + + + Care Team Providers + +------+ + | Care Cable Armorer Operator Name | Role | Phone | [...] | | Malignant | Reinaldo, | [address] | | | | | 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, | [place], | | | | | extrahepatic | MD [address] | [place] [address] | | | | | bile ducts | [address] | Phone: | | | | | Procedures | [place], | [phone] | | | | | [place]dom[place] | [place] [address] | Fax: | | | | | Pelvis w | Phone: | [phone] | | | | | Contrast | [phone] | | | | | | | Fax: | | | | | | | [phone] | | +--------+--------+ + + + + [...] | | Malignant | Reinaldo, | [address] | | | | | neoplasm of | Epifanio Soler, | [place], | | | | | extrahepatic | MD [address] | [place] [address] | | | | | bile ducts | [address] | Phone: | | | | | Procedures | [place], | [phone] | | | | | [place] Abdomen | [place] [address] | Fax: | | | | | Pelvis w | Phone: | [phone] | | | | | Contrast | [phone] | | | | | | | Fax: | | | | | | | [phone] | | +--------+--------+ + + + + Encounter Details +--------+ + + + + | Date | Type | Department | Care Team | Description | +--------+ + + + + | 09/25/ | Hospital | [facility] | Reinaldo, | Malignant neoplasm | | 2014 | Encounter | MED [facility] [address] | Epifanio Soler MD [address] | of extrahepatic bile | | | | [address] [place], | [address] [place] | ducts (HCC) | | | | [place] [address] | [place] [address] | | | | | [phone] | [phone] | | | | | | | [...] | | [facility] [place] [address] | | | | | | [phone] | | | | | | | [...] + | MISCELLANEOUS LAB | | | [phone] | + +---------+ + + | MISCELANIOUS LAB | | | [phone] | + +---------+ + + documented in [...]
--- OUTSIDE RECORDS SUMMARY | ~2019-06-13 | XMS | Encounter Summary ---
Demographics + + + | Address | [address] | | | [place] [address] | + + + | Home Phone [...] Providers + +------+ + | Care Acid Bath Mixer Name | Role | Phone [...] | | 2012 | | Center at [facility] [address] | [address] | | | | | HIEN [facility] | [facility] | | | | | for Health and | [place], [place] | | | | | [facility] [place] [address] | [address] | | | | | [place], [place] | [phone] | | | | | [address] | | | | | | [phone] | | | +--------+ + + + [...]
--- OUTSIDE RECORDS SUMMARY | ~2019-06-13 | XMS | Encounter Summary ---
Demographics + + + | Address | [address] | | | [place] [address] | + + + | Home Phone [...] Providers + +------+ + | Care Professional Skateboarder Name | Role | Phone | + [...] Mojica | treatment | | | | [facility] | [address] | | | | | for Health and | [place] [address] | | | | | Healing [address] | [phone] | | | | | [place], | | | | | | [place] [address] | | | | | | [phone] | | | +--------+ + + + [...]
--- OUTSIDE RECORDS SUMMARY | ~2019-06-13 | XMS | Encounter Summary ---
Demographics + + + | Address | [address] | | | [place] [address] | + + + | Home Phone [...] Team Providers + +------+ + | Care Asset Management Lead Name | Role | Phone | [...] | Center at H2 [address] | [address] [facility] | | | | | [facility] | [facility] | | | | | for [facility] and | [place], [place] | | | | | [facility], [facility] 2 | [address] | | | | | [place], [place] | [phone] | | | | | [address] | | | | | | [phone] | | | +--------+ + + + [...]
--- OUTSIDE RECORDS SUMMARY | ~2019-06-13 | XMS | Encounter Summary ---
Demographics + + + | Address | [address] | | | [place] [address] | + + + | Home Phone [...] Team Providers + +------+ + | Care Cooperative Extension Agent Name | Role | Phone | [...] | | | | | | Mailcode: [facility] | | | | | | | Center | | | | | | | for Health | | | | | | | and Healing, | | | | | | | Building [address] | | | | | | | [place], [place] | | | | | | | [address] | | | | | | | Phone: | | | | | | | [phone] | | | | | | | Fax: | | | | | | | [phone] | +--------+--------+ + + + + Encounter Details +--------+ + + + + | Date | Type | Department | Care Team | Description | +--------+ + + + + | 07/04/ | Hospital | [facility] | Virgilio Esquivel MD | | | 2008 | Encounter | [address] | [address] | | | | | Avjohanne Mailcode: [facility] | Velma [place], | | | | | [facility] | [place] [address] | | | | | Health and Healing, | [phone] | | | | | [facility] 1 | | | | | | [place], [place] | | | | | | [address] | | | | | | [phone] | | | +--------+ + + + [...] Performed At | + + + | [id number] | | | [id number] | | | [id number] EMERALD ARREDONDO [id number] | | | Date: 07/04/2008 Attending Surgeon: | | | Virgilio Esquivel M.D. Bill Checker(s): | | | Prudencio Fay MD Preoperative [...] left side, and | | | a Beaufort was used to elevate the left mucoperichondrial [...] performed with a #15 blade followed by Beaufort elevation of | | | mucoperichondrial flap. The portions of mucosa surrounding the | | | perforation were then incised with a Beaufort. Additional mobilization | | | of the [...] Surgery MMK / HS | | | [id number] / [id number] / [id number] / | | | | | + + + + + | Procedure Note | + + | Prudencio Fay MD - 07/04/2008 12:00 AM PDT [id number] | | [id number] [facility] | | [place] [id number] [id number] Date: 07/04/2008 Attending Surgeon: | | Virgilio Esquivel M.D. Bill Checker(s): Prudencio Fay MD | | Preoperative Diagnosis(es):Septal [...] the cartilage on theleft side, and a Beaufort was | | used to elevate the left mucoperichondrial flap.This was elevated above and below the | | level of the perforation and wastaken past the bony cartilaginous junction superiorly | | and inferiorly. Inorder to gain additional exposure, the right side was approached in | | asimilar fashion. Cartilaginous scoring was performed with a #15 bladefollowed by Beaufort | | elevation of mucoperichondrial flap. The portions ofmucosa surrounding the perforation | | were then incised with a Beaufort.Additional mobilization of the bilateral | | mucoperichondrial [...] cartilages onto the anterior septal angle of [facility]. The soft tissue | | skin [...] M.D.Facial Plastic | | and Reconstructive Surgery [facility] / [id number] / [id number] / [id number] / T: 07/06/2008 | | | |approached initially. A #15 blade was used to score the cartilage on the | |left side, and a Beaufort was used to elevate the left mucoperichondrial flap. | |This was elevated above and below the level of the perforation and was | |taken past the bony cartilaginous junction superiorly and inferiorly. In | |order to gain additional exposure, the right side was approached in a | |similar fashion. Cartilaginous scoring was performed with a #15 blade | |followed by Beaufort elevation of mucoperichondrial flap. The portions of | |mucosa surrounding the perforation were then incised with a Beaufort. | |Additional mobilization of the bilateral mucoperichondrial [...] | | | |KRISTINA / HS | |[id number] / [id number] / 05598 / | | | | | | | | | | | | | | | | | | | | | + + TEACHING PHYSICIAN (07/04/2008 12:00 AM PDT) + + + | Narrative | Performed At | + + + | [id number] | | | [id number] | | | [id number] [place] 746859 | | | Date: 07/04/2008 Attending Surgeon: | | | Virgilio Esquivel M.D. Bill Checker(s): | | | Prudencio Fay MD Preoperative [...] Surgery TDW / HS | | | [id number] / [id number] / [id number] / | | | | | + + + + + | Procedure Note | + + | Virgilio Esquivel MD - 07/04/2008 12:00 AM PDT [id number] | | [id number] [facility] | | [place] 580292 Date: 07/04/2008 Attending Surgeon: | | Virgilio Esquivel M.D. Bill Checker(s): Prudencio Fay MD | | Preoperative Diagnosis(es):Nasal [...] M.D.Facial Plastic and Reconstructive Surgery TDW / [id number] / | | [id number] / [id number] / T: 07/04/2008 | | | | [...] | | | |TDW / HS | |[id number] / [id number] / 91468 / | | | | | | | | | | | | | | | | | | | | | + + documented in this encounter Visit Diagnoses Not on filedocumented in this encounter
--- OUTSIDE RECORDS SUMMARY | ~2019-06-13 | XMS | Encounter Summary ---
Demographics + + + | Address | [address] | | | [place] [address] | + + + | Home Phone [...] Team Providers + +------+ + | Care Salesforce Specialist Name | Role | Phone | [...] | | Center at [facility] [address] | [address] | | | | | HIEN [facility] | Surendra Carreon | | | | | for Health and | [place], [place] | | | | | [facility] 2 | [address] | | | | | [place], [place] | [phone] | | | | | [address] | | | | | | [phone] | | | +--------+ + + + [...]
--- OUTSIDE RECORDS SUMMARY | ~2019-06-13 | XMS | Encounter Summary ---
Demographics + + + | Address | [address] | | | [place] [address] | + + + | Home Phone [...] + + | Author | [facility] | | | and Eduardoana | + + + | Organization | [facility] | | | and Eduardoana | + + + | Address | Unknown | + + + | Phone | Unavailable | + + + Support + + + + + | Name | Relationship | Address | Phone | + + + + + | Poncho Oquendo | ECON | [address] | | | | | [facility] [place] | | | | | [address] | | + + + + + | Marta Upton | ECON | [place], [place] | | | | | [address] | | + + + + + Care Team Providers + +------+ + | Care Business Performance Manager Name | Role | Phone | + +------+ + | No, Physician | PCP | Unavailable | + +------+ + Encounter Details +--------+ + + + + | Date | Type | Department | Care Team | Description | +--------+ + + + + | 04/22/ | Preadmit | [facility] | | | | 2019 | Visit | [facility] | | | | | | CENTER PREADMISSION | | | | | | [facility] [address] | | | | | | [place] | | | | | | [address] | | | | | | [phone] | | | +--------+ + + + [...] [facility] | | | | | | [place] [address] | | | | | | [phone] | | | | | | | | +--------+---------+ + + + documented as of this encounter Visit Diagnoses Not on filedocumented in this encounter
--- OUTSIDE RECORDS SUMMARY | ~2019-06-13 | XMS | Encounter Summary ---
Demographics + + + | Address | [address] | | | [place] [address] | + + + | Home Phone [...] | Author | [facility] | | | and Eduardoana | + + + | Organization | [facility] | | | and Eduardoana | + + + | Address | Unknown | + + + | Phone | Unavailable | + + + Support + + + + + | Name | Relationship | Address | Phone | + + + + + | Poncho Oquendo | ECON | [address] | | | | | [place] | | | | | [address] | | + + + + + | Marta Upton | ECON | [place] | | | | | [address] | | + + + + + Care Team Providers + +------+ + | Care Airport Ramp Agent Name | Role | Phone | + +------+ + | Vlaeriy Carmona DO | PCP | | + +------+ + Encounter Details +--------+ + + + + | Date | Type | Department | Care Team | Description | +--------+ + + + + | 08/27/ | Hospital | [facility] | Valeriy Carmona, | Breast nodule | | 2016 | Encounter | MED CTR MAMMOGRAPHY | DO [address] | | | | | [address] | [place] [address] | | | | | [place], [place] | [phone] | | | | | [address] | | | | | | [phone] | [address] | | +--------+ [...] [facility] | | | | | | [facility] [place] [address] | | | | | | [phone] | | | | | | | [...]
--- OUTSIDE RECORDS SUMMARY | ~2019-06-13 | XMS | Encounter Summary ---
Demographics + + + | Address | [address] | | | [place] [address] | + + + | Home Phone [...] Team Providers + +------+ + | Care Enrober Name | Role | Phone | + [...] | | | | | Procedures | [place], [place] | [facility] [place] | | | | | CONSULT TO | [address] | [address] | | | | | ENT / FACIAL | Phone: | Phone: | | | | | PLASTIC | [phone] | [phone] | | | | | SURGERY | Fax: | Fax: | | | | | | [phone] | [phone] | +--------+--------+ + + + + Reason [...] | y | | Epic Dept | [facility] [address] | | | | | | [...] | | | | | | | [place], [place] | | | | | | | [address] | | | | | | | Phone: | | | | | | | [phone] | | | | | | | Fax: | | | | | | | [phone] | +--------+--------+ + + + + Encounter Details +--------+---------+ + + + | Date | Type | Department | Care Team | Description | +--------+---------+ + + + | 12/27/ | Office | [facility] | Aamir Lau, | Nasal Septal Defect | | 2007 | Visit | Center at [facility] [address] | [address] | (Primary Dx); | | | [address] | [place], [place] | Chronic Ethmoidal | | | | Mailcode: CH5E | [address] | Sinusitis; Other | | | | [facility] | [phone] | Diseases of Nasal | | | | and Healing, | | Cavity and Sinuses | | | | Building [address], 5th | | | | | | Floor [place], [place] | | | | | | [address] | | | | | | [phone] | | | +--------+---------+ + + + [...] documentation. Aamir Lau M.D., M.P.H., F.A.C.S. Director, [facility] Professor and Chief, Rhinology and [...] ESS and septoplasty by Dr. Benedict in [place]. She reports a prolonged recovery with sign [...] Rfl: No Known Allergies. Social HX: Lives [place] No ETOH, No tobacc (quit several [...] | + + +--------+ + + | [place] NASAL | Procedures | Routin | Chronic [...]
--- OUTSIDE RECORDS SUMMARY | ~2019-06-13 | XMS | Encounter Summary ---
Demographics + + + | Address | [address] | | | [place] [address] | + + + | Home Phone [...] | Author | [facility] | | | and Eduardoana | + + + | Organization | [facility] | | | and Eduardoana | + + + | Address | Unknown | + + + | Phone | Unavailable | + + + Support + + + + + | Name | Relationship | Address | Phone | + + + + + | Poncho Oquendo | ECON | [address] | | | | | [place] [facility] [place] | | | | | [address] | | + + + + + | Marta Upton | ECON | [place], [place] | | | | | [address] | | + + + + + Care Team Providers + +------+ + | Care Dominatrix Name | Role | Phone | + +------+ + PCP | Unavailable | + +------+ + Encounter Details +--------+ + + + + | Date | Type | Department | Care Team | Description | +--------+ + + + + | 08/07/ | Hospital | [facility] | | | | 2012 - | Encounter | [facility] | | | | | | CENTER [address] | | | | 08/13/ | | [place] | | | | 2012 | | [address] | | | | | | [phone] | | | +--------+ + + + [...] [facility] | | | | | | [place] [address] | | | | | | [phone] | | | | | | | [...] + | [facility] | [address] | [place], [place] | [phone] | | [facility] | | [address] | | | - LABORATORY | | | | + + + + + | [facility] | [address] | [place] | | | [facility] | | [address], [facility] | | | - LABORATORY | [...] | | (formerly Mahad) [place] | | [facility] | | | | Centaur [...] Agee | | | | | | [address] CLIA: | | | | | | [id number] | | | | + + + + + + + + | Specimen | + + | | + + + + + + + | Performing | Address | City/State/Zipcode | Phone Number | | Organization | | | | + + + + + | [facility] | [address] | [place], [place] | [phone] | | [facility] | | [address] | | | - LABORATORY | | | | + + + + + | [facility] | [address] | [place] | | | [facility] | | [id number] [place] [address] | | | - LABORATORY | | [...] + + | Performing | Address | City/State/[facility] | Phone Number | | Organization | | | | + + + + + | [facility] | [address] | [place] | [phone] | | [facility] | | [address] | | | - LABORATORY | | | | + + + + + | [facility] | [address] | [place] | | | [facility] | | [address], [facility] | | | - LABORATORY | [...] + | [facility] | [address] | [place] | [phone] | | [facility] | | [address] | | | - LABORATORY | | | | + + + + + | [facility] | [address] | [place], [place] | | | [facility] | | [address] | | | [...] + | [facility] | [address] | [place], [place] | [phone] | | [facility] | | [address] | | | - LABORATORY | | | | + + + + + | [facility] | [address] | [place], [place] | | | [facility] | | [id number] [place] [address] | | | - LABORATORY | | [...] [address] | [place] | [phone] | | [facility] | | [address] | | | - LABORATORY | | | | + + + + + | [facility] | [address] | [place] | | | [facility] | | [address], [facility] | | | - LABORATORY | [...] + | [facility] | [address] | [place], [place] | [phone] | | [facility] | | [address] | | | - LABORATORY | | | | + + + + + | [facility] | [address] | [place], [place] | | | [facility] | | [id number] [place] [address] | | | - LABORATORY | | [...] [address] | [place] | [phone] | | [facility] | | [address] | | | - LABORATORY | | | | + + + + + | [facility] | [address] | [place] | | | [facility] | | [address] | | | [...] | >60Comment: For | >60 mL/min/A | [facility] | | | GFR | -Americans, | [...] + | [facility] | [address] | [place] | [phone] | | [facility] | | [address] | | | - LABORATORY | | | | + + + + + | [facility] | [address] | [place] | | | [facility] | | [address] | | | [...] + | [facility] | [address] | [place], [place] | [phone] | | [facility] | | [address] | | | - LABORATORY | | | | + + + + + | [facility] | [address] | [place], [place] | | | [facility] | | [id number] [place] [address] | | | - LABORATORY | | [...] + | [facility] | [address] | [place], [place] | [phone] | | [facility] | | [address] | | | - LABORATORY | | | | + + + + + | [facility] | [address] | [place], [place] | | | [facility] | | [address], [facility] | | | - LABORATORY | [...] | | Phosphatase | | | [facility] [facility] | | [...] [address] | [place] | [phone] | | [facility] | | [address] | | | - LABORATORY | | | | + + + + + | [facility] | [address] | [place] | | | [facility] | | [address] | | | [...] ST. | [address] | [place] | [phone] | | [facility] | | [address] | | | - LABORATORY | | | | + + + + + | [facility] | [address] | [place], [place] | | | [facility] | | [address] [place] [address] | | | - LABORATORY | | | | + + + + + documented in this encounter Visit Diagnoses Not on filedocumented in this encounter"
--- OUTSIDE RECORDS SUMMARY | ~2019-06-13 | XMS | Encounter Summary ---
Demographics + + + | Address | [address] | | | [place] [address] | + + + | Home Phone [...] + | Author | [facility] | | | and Eduardoana | + + + | Organization | [facility] | | | and Eduardoana | + + + | Address | Unknown | + + + | Phone | Unavailable | + + + Support + + + + + | Name | Relationship | Address | Phone | + + + + + | Poncho Oquendo | ECON | [address] | | | | | [facility] [place] | | | | | [address] | | + + + + + | Mrata Upton | ECON | [place] | | | | | [address] | | + + + + + Care Team Providers + +------+ + | Care Dental Sales Representative Name | Role | Phone [...] | | renal and | OBED, | [place] | | | | | ureteral | [place] | [address] Phone: | | | | | calculous | [address] | [phone] | | | | | obstruction | Phone: | Fax: | | | | | | [phone] | [phone] | | | | | | Fax: | | | | | | | [phone] | | +--------+--------+ + + + + Encounter Details +--------+---------+ + + + | Date | Type | Department | Care Team | Description | +--------+---------+ + + + | 03/26/ | Office | [facility] | Pedro Green, | Gallbladder cancer, | | 2020 | Visit | UROLOGY [address] | DO [address] | carcinoma (HCC) | | | | [address] | [place] [address] | (Primary Dx); | | | | [place], [place] | [phone] | Obstruction of left | | | | [address] | | ureter | | | | [phone] | | | +--------+---------+ + + + [...] encounter Patient Instructions Patient Instructions Eleonora Saxena, Tank House Operator Helper - 03/26/2019 10:30 AM PSTPLAN : Proceed [...] MUST receive a cardiac clearance from your housing relocation prior to surgery. Family members (sprinkler truck driver) need to stay here during the procedure and can leave once patient i s discharged. Location: [facility] ([address] [place] [address] [place] [address]) Time: You will receive a call around [...] related questions or concerns, please contact our Tank House Operator Helper Christine parikh at PLAN : Proceed with [...] MUST receive a cardiac clearance from your housing relocation prior to surgery. Family members (sprinkler truck driver) need to stay here during the procedure and can leave once patient is discharged. Location: [facility] ([address] [place] [address] [place] [address]) Time: You will receive a call around [...] related questions or concerns, please contact our Tank House Operator Helper Christine parikh at documented in this encounter Progress Notes Pedro Green DO - 03/26/2019 10:30 AM PSTFormatting of this note might be different fr om the original. [facility] Urology Primary Care Provider: No Physician [...] UTI, fevers, nausea. INTERVAL: 06/08/2018 - Dr ePdro Green DO The patient is a 57 [...] this well. Her last exchange was at [facility] during a septic episode. Her last [...] and replacement; Surgeon: Pedro coker DO; [place] [facility] [place] HYSTERECTOMY LIVER SURGERY OTHER SURGICAL HISTORY UNLISTED PROCEDURE ARTHROSCOPY OTHER SURGICAL HISTORY MEDIPORT INSERTION SINGLE OTHER SURGICAL HISTORY HARDWARE PRESENT OTHER SURGICAL HISTORY Left 07/05/2018 CYSTOSCOPY W/ URETERAL STENT PLACEMENT - Procedure: CYSTOSCOPY - STENT; Surgeon: Pedro Green DO; Location: [facility] MAIN OR; Service: Urology; Laterality: [...] | 2019 | Visit | | DO [address] [place] [address] | | | | | | [place] [address] | | | | | | [phone] | | | | | | | | +--------+---------+ + + + documented as of this encounter Visit Diagnoses + + | Diagnosis | + + | Gallbladder cancer, 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
--- OUTSIDE RECORDS SUMMARY | ~2019-06-13 | XMS | Encounter Summary ---
Demographics + + + | Address | [address] | | | [place] [address] | + + + | Home Phone [...] | Author | [facility] | | | and Eduardoana | + + + | Organization | [facility] | | | and Eduardoana | + + + | Address | Unknown | + + + | Phone | Unavailable | + + + Support + + + + + | Name | Relationship | Address | Phone | + + + + + | Poncho Oquendo | ECON | [address] | | | | | [place] | | | | | [address] | | + + + + + | aMrta Upton | ECON | [place] | | | | | [address] | | + + + + + Care Team Providers + +------+ + | Care Folder Seamer Name | Role | Phone | + [...] of | Epifanio C, | [facility]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 | MD [address] | [place], | | | | | (HCC) | [address] | [place] [address] | | | | | Procedures | [place], | Phone: | | | | | [place] | [place] [address] | [phone] | | | | | DIPHENHYDRAM | Phone: | Fax: | | | | | INE HCL | [phone] | [phone] | | | | | INJECTIO, [address] | Fax: | | | | | | [place] | [phone] | | | | | | ONDANSETRON [...] [address] [place] | | | | | [facility] [place], | [place] [address] | | | | | [place] [address] | [phone] | | | | | [phone] | | | +--------+ + + + [...] [address] | | | | | | [place] [address] | | | | | | [phone] | | | | | | | [...]
--- OUTSIDE RECORDS SUMMARY | ~2019-06-13 | XMS | Encounter Summary ---
Demographics + + + | Address | [address] | | | [place] [address] | + + + | Home Phone [...] + | Author | [facility] | | | and Eduardoana | + + + | Organization | [facility] | | | and Eduardoana | + + + | Address | Unknown | + + + | Phone | Unavailable | + + + Support + + + + + | Name | Relationship | Address | Phone | + + + + + | Poncho Oquendo | ECON | [address] | | | | | [place] | | | | | [address] | | + + + + + | Marta Upton | ECON | [place] | | | | | [address] | | + + + + + Care Team Providers + +------+ + | Care Rotary Dryer Operator Name | Role | Phone | [...] | | Personal | Reinaldo, | [place] | | | | | 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, | [place], | | | | | 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 [address] | [place] [address] | | | | | neoplasm of | [address] | Phone: | | | | | other site | [place], | [phone] | | | | | in | [place] [address] | Fax: | | | | | gastrointest | Phone: | [phone] | | | | | inal tract | [phone] | | | | | | Procedures | Fax: | | | | | | CT Abdomen | [phone] | | | | | | Pelvis [...] | | Personal | Reinaldo, | [place] | | | | | 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, | [place], | | | | | 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 [address] | [place] [address] | | | | | neoplasm of | [address] | Phone: | | | | | other site | [place], | [phone] | | | | | in | [place] [address] | Fax: | | | | | gastrointest | Phone: | [phone] | | | | | inal tract | [phone] | | | | | | Procedures | Fax: | | | | | | CT Abdomen | [phone] | | | | | | Pelvis w | | | | | | | Contrast | | | +--------+--------+ + + + + Encounter Details +--------+ + + + + | Date | Type | Department | Care Team | Description | +--------+ + + + + | 09/16/ | Hospital | [facility] | Reinaldo, | Personal history of | | 2014 | Encounter | [facility] [address] | Epifanio Soler MD [address] | malignant neoplasm | | | | [place], | [address] [place] | of other site in | | | | [place] [address] | [place] [address] | gastrointestinal | | | | [phone] | [phone] | tract | | | | | [...] [address] | | | | | | [place] [address] | | | | | | [phone] | | | | | | | [...]
--- OUTSIDE RECORDS SUMMARY | ~2019-06-13 | XMS | Encounter Summary ---
Demographics + + + | Address | [address] | | | [place] [address] | + + + | Home Phone [...] Providers + +------+ + | Care Telephone Order Dispatcher Name | Role | Phone | + +------+ + PCP | Unavailable | + +------+ + Encounter Details +--------+ + + + + | Date | Type | Department | Care Team | Description | +--------+ + + + + | 04/07/ | Sponge Clipper | Digestive Health | Tai Stanton, | Gallbladder cancer | | 2012 | | Center at [facility] [address] | [address] | (HCC) (Primary Dx) | | | | [facility] | [facility] | | | | | for Health and | [place], [place] | | | | | [facility] | [address] | | | | | [place], [place] | [phone] | | | | | [address] | | | | | | [phone] | | | +--------+ + + + [...] | | | | | | Institution: [facility] | | | | | | [facility] | | | | | | [facility] [place] | | | | | | Lab,[place], [place] | | | | | | [id number] Accession | | | | | | Number: [id number] | | | | | | Collection [...] [place] | | | | | | Dottiei [...] + | [facility] | [address] | [place] [address] | | | PATHOLOGY | [address] | | | + + + + + documented in this encounter Visit Diagnoses + + | Diagnosis | + + | 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
--- OUTSIDE RECORDS SUMMARY | ~2019-06-13 | XMS | Encounter Summary ---
Demographics + + + | Address | [address] | | | [place] [address] | + + + | Home Phone [...] Team Providers + +------+ + | Care Plycor Operator Name | Role | Phone | [...] | 2014 | Encounter | [facility] | [address] | | | | | [address] | [facility] | | | | | [address] | [place], [place] | | | | | Alex[place], 7th floor | [address] | | | | | [place], [place] | [phone] | | | | | [address] | | | | | | [phone] | | | +--------+ + + + [...]
--- OUTSIDE RECORDS SUMMARY | ~2019-06-13 | XMS | Encounter Summary ---
Demographics + + + | Address | [address] | | | [place] [address] | + + + | Home Phone [...] Team Providers + +------+ + | Care Insulation Board Back Tender Name | Role | Phone | [...] + + | 04/28/ | Hospital | [facility] [address] | Cornelia Knutson, | | | 2012 - | Encounter | [facility] Mailcode: | [address] | | | | | [address] | [address] | | | 05/04/ | | [place], | [place], [place] | | | 2012 | | [place] [address] | [address] | | | | | [phone] | [phone] | | | | | | | [...] cholecystitis. Her pathology was reviewed at [facility]. She underwent a CT scan, [...] on arranging an appointm ent with [facility] Oncology for treatment planning. FINAL [...] severe diarrhea.During normal business hours [facility] .For 'after hours' URGENT problems please call the [facility] shredding machine operator at and ask for the [...] Your Follow-Up Plan Follow up with [facility] HEMATOLOGY ONCOLOGY CH. (Please expect a call from the Oncology clini c in the next several days to schedule an appointment with either Dr. Grey or Dr. Ledesma ) Contact information: [address] [address] Future Appointments Date & Time Provider Department Dept Phone Center 05/17/2012 11:30 AM CORNELIA KNUTSON MD [facility] [phone] [facility] Discharging Physician: MARCO ANTONIO BEATTY NP Attending Physician: MD Marco Antonio Mauricio RN, MSN, MUCKER OPERATOR [facility] Blue Surgery Pager# [phone] 9:37 AM 05/04/2012 documented in this enc [...] 05/04/12 0659 05/04/12699 - 05/05/12 0659(Discharged) Shift 6354-9648 3339-5772 9071-3809 Daily Total 1018-7874 8210-8994 0570-1877 Daily Total I N T A K E P.O. 925 377 195 5920 500 500 I.V. 5 10 15 Shift Total 930 047 360 9605 500 500 O U T P U T Urine 1050 3435 721 5898 400 400 Urine 1050 5820 327 1565 400 400 Other Stool 1 1 Shift Total 1050 4570 184 9083 400 400 NET -120 -1090 205 -1005 [...] Attending Physician: Dr. Romy Beatty RN, MSN, MUCKER OPERATOR [facility] Blue Surgery Pager# [phone] 12:54 PM 05/04/2012 Current Inpatient Medications Medication [...] Arias MD - 5:51 AM PDT [facility] Department of Surgery Blue Surgery [...] 04/30/12 0659 04/30/12699 - 05/01/12 0659 Shift 2291-9640 6948-1092 0063-9484 Daily Total 7918-9961 2352-4989 2213-0408 Daily Total I N T A K E P.O. 620 277 520 6371 P.O. 620 518 129 2755 I.V. 1977.33 977.5 982.5 3937.33 0 0 [...] O U T P U T Urine 770 502 2247 2004 I/O Urinary Drain Output (Urinary Cath Placement López) 484 736 8603 2004 Shift Total 918 587 6066 2005 NET 2415.83 837.5 307.5 3560.83 0 [...] tomorrow Parish Blackburn MD Surgery, R1 Pager: [phone] ilvia Del Toro NP - 05/01/2012 2:19 PM PDTPain fairly well controlled on oral medications. No longer nauseated, tolerating 10 mg oxycodone Epidural catheter discontinued, tip intact. APS will sign off, please call us back if there are any pain related concerns for us to add ress. Silvia Del Toro NP Adult Pain Service Pager [phone] Team Pager [phone] Silvia Mckeon NP - 05/01/2012 8:56 AM [...] and summary of old medical records (source: [facility]), as summarized in the body of the note. SILVIA DEL TORO NP BILLING INFORMATION [facility] DEPARTMENT: [id number] Place of Service:- Inpatient Date of Service: 05/01/2012 CSN: [id number] Suggested Modifier: None Suggested CPT: 42682 - Daily mgmt epidural/subarachnoid drug administration Prolonged service: n/a Parish Arias MD - 05/01/2012 5:44 AM PDT [facility] Department of Surgery Blue Surgery [...] Date 04/29/12699 - 04/30/1265804/30/12699 - 05/01/12658 Shift 8288-6134 2243-6877 3962-0827 Daily Total 9402-2008 4778-6098 0710-5015 Daily Total I N T A K E [address] 307 461 9422 [address] 239 044 8603 I.V. 1977.33 977.5 982.5 3937.33 0 0 [...] O U T P U T Urine 902 773 1397 2004 I/O Urinary Drain Output (Urinary Cath Placement López) 222 816 3056 2004 Shift Total 725 775 9125 2004 NET 2415.83 837.5 307.5 3560.83 0 [...] course Parish Blackburn MD Surgery, R1 Pager: [phone] Parish Arias MD - 11:59 AM PDT [facility] Department of Surgery Blue Surgery [...] - 04/30/1259 04/30/12699 - 05/01/12 0659 Shift 0385-6848 6367-3113 2518-8295 Daily Total 7281-8767 0497-6332 7989-2063 Daily Total I N T A K E [address] 721 824 0074 [address] 102 176 0167 I.V. 1977.33 977.5 982.5 3937.33 0 0 [...] O U T P U T Urine 515 905 5202 2004 I/O Urinary Drain Output (Urinary Cath Placement López) 247 833 8005 2004 Shift Total 455 489 3864 2004 NET 2415.83 837.5 307.5 3560.83 0 [...] course Parish Blackburn MD Surgery, R1 Pager: [phone] Sasha Antony MD - 04/30/2012 7:03 AM [...] primary service. JOSE MALAGON MD BILLING INFORMATION [facility] DEPARTMENT: [id number] Place of Service:- Inpatient Date of Service: 04/30/2012 CSN: [id number] Suggested Modifier: GC - Resident Involved Suggested CPT: 74896 - Daily mgmt epidural/subarachnoid drug administration Prolonged [...] the floor later today. SASHA DALY MD [facility] 8CSI [address] 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 [employer] Hypotension Fluid bolus as needed to [...] no need for intervention Dispo TRANSFER TO [facility] ONLY Sasha Antony MD - [...] making: N/a JOSE MALAGON MD BILLING INFORMATION [facility] DEPARTMENT: [id number] Place of Service:- Inpatient Date of Service: 04/29/2012 CSN: [id number] Suggested Modifier: GC - Resident Involved Suggested CPT: 55044 - Daily mgmt epidural/subarachnoid drug administration Prolonged [...] Department of Obstetrics & Gynecology, PGY1 [facility] Pager [phone] documented in thi s encounter Plan of [...] [facility] | [address] | [place] [address] | | | SERVICES, CORE | PARK [...] [facility] | [address] | [place] [address] | | | SERVICES, CORE | [...] [facility] | [address] | [place] [address] | | | SERVICES, CORE | NEAL [...] [facility] | [address] | [place] [address] | | | GAVIN, SAM | NEAL [...] [facility] | [address] | [place] [address] | | | SERVICES, CORE | PARK [...] | [facility] | [address] [facility] | [place] [address] | | | SERVICES, CORE | PARK [...] | + + + + + | [employer] | [address] [facility] | [place] [address] | | | SERVICES, CORE | NEAL [...] [facility] | [address] | [place] [address] | | | SERVICES, CORE | PARK [...] [facility] | [address] | [place] [address] | | | SERVICES, CORE | NEAL [...] + + + | [facility] | [address] | [place], [place] | | | JOHN CONTE OF [facility] | [address] | [address] | | | TESTS | | | [...] [facility] | [address] | [place] [address] | | | SERVICES, CORE | NEAL [...] KANNAN | [address] | [place], [place] | | | JOHN CONTE OF [facility] | [address] | [address] | | | TESTS | | | [...] [facility] | [address] | [place] [address] | | | SERVICES, CORE | [address] | | | + + + + + MAGNESIUM, PLASMA (05/01/2012 6:03 AM PDT) + +-------+ + + + | Component | Value | Ref Range | Performed | Pathologist | | | | | At | Signature | + +-------+ + + + | MAGNESIUM,P | 1.9 | 1.8 - 2.5 mg/dL | MIHANDY | | | LASMA | | | [...] [facility] | [address] [facility] | [place] [address] | | | SERVICES, CORE | NEAL [...] [facility] | [address] | [place] [address] | | | SAM ALONSO | NEAL [...] NAELAM | [address] | [place], [place] | | | [facility] | [address] | [address] | | | TESTS | | | [...] BRUNNER | [address] | [place], [place] | | | JOHN CONTE OF ARJUN | [facility] | [address] | | | TESTS | | | [...] [facility] | [address] | [place] [address] | | | SERVICES, CORE | NEAL [...] + + + | [facility] | [address] | [place] [address] | | | SERVICES, CORE | NEAL [...] + | [facility] | [address] | [place] [address] | | | SERVICES, [facility] | [address] | [...] [facility] | [address] | [place] [address] | | | SERVICES, CORE | [address] | | | + + + + + OPERATION RECORD (04/29/2012 5:13 PM PDT) + + | Transcriptions | + + | Ruba Muhammad MD - 04/28/2012 10:30 PM PDT Date: | | 04/28/2012ttending Surgeon: Cornelia Knutson M.D.Acting Teacher(s): | | VENKATA Mcclainreoperative Diagnosis(es):Gallbladder | | [...] with an 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 Her pathology was reviewed at [facility]. She underwent aCT scan, which [...] for RSI | | was completed.Cornelia Knutson M.D.[facility] ([facility])Professor | | and Vice-Squirrel Man of SurgeryThe Shahriar Nava Chair for Pancreatic Disease | | ResearchPancreatic/ HepatoBiliary and Foregut Working GroupsMail Code [id number] [facility] | | [place], [place]. [address]Fycqp Fax [phone] | | [phone]: [email or web address] M.[email or web address].Professor and Vice-Squirrel Man of | | SurgeryThe Shahriar Nava Chair for Pancreatic Disease ResearchSt. [facility] | | [place] ([facility])Division of Gastrointestinal and General Surgery / [id number] / | | [id number] / [id number] / T: 04/28/2012 | |with electrocautery. Biopsy [...] case we needed to perform a | |[place] maneuver. We then finished the dissection identifying [...] | | | |Cornelia Knutson M.D. | |[facility] ([facility]) | |Professor and Vice-Squirrel Man of Surgery | |The Shahriar Nava Chair for Pancreatic Disease Research | |Pancreatic/ HepatoBiliary and Foregut Working Groups | |Mail Code [id number] | |[address] [place] [address] | |[place], [place]. [address] | | | | | |email: [email or web address] | | | | | |Cornelia Knutson M.D. | |Professor and Vice-Squirrel Man of Surgery | |The Shahriar Nava Chair for Pancreatic Disease Research | |[facility] ([facility]) | |Division of Gastrointestinal and General Surgery | | | |JS / HS | |[id number] / [id number] / [id number] / | | | | | + [...] [facility] | [address] | [place] [address] | | | SERVICES, CORE | PARK [...] [facility] | [address] [facility] | [place] [address] | | | SERVICES, CORE | PARK [...] [facility] | [address] | [place] [address] | | | SERVICES, CORE | NEAL [...] | + + + + + | [facility] | [address] | [place] [address] | | | SERVICES, CORE | NEAL [...] in | | | | | | [facility]. No | | | | | | pneumothorax or | | | | | | effusion. Clear lungs. | | | | | | Normalcardiac and | | | | | | mediastinal contours. | | | | | | Attending Radiologists: | | | | | | SATHISH CASTLILO MDAuthor: | | | | | | [...] | | + +---------+ + + | [facility] DEPARTMENT OF | | | | [...] [facility] | [address] | [place] [address] | | | SERVICES, CORE | PARK [...] | + + + + + | [facility] | [address] | [place] [address] | | | SERVICES, CORE | PARK [...] [facility] | [address] | [place] [address] | | | SERVICES, CORE | PARK [...] [facility] | [address] | [place] [address] | | | SERVICES, CORE | [address] | | | + + + + + INR (04/28/2012 2:34 PM PDT) + +-------+ + + + | Component | Value | Ref Range | Performed | Pathologist | | | | | At | Signature | + +-------+ + + + | INR | 1.11 | 0.90 - 1.20 INR | [facility] | | | | | | LABORATORY [...] [facility] | [address] | [place] [address] | | | SAM ALONSO | PARK [...] - [facility] | [address] | [place], [place] | | | JOHN CONTE OF CARE | [address] | [address] | | | TESTS | | | [...] BR[facility]NER | [address] | [place], [place] | | | JOHN CONTE OF [facility] | [address] | [address] | | | TESTS | | | [...] KANNAN | [address] | [place], [place] | | | JOHN CONTE OF CARE | [address] | [address] | | | TESTS | | | [...] KANNAN | [address] | [place], [place] | | | JOHN CONTE OF [facility] | [address] | [address] | | | TESTS | | | [...] BRUNNER | [address] | [place], [place] | | | JOHN CONTE OF CARE | [address] | [address] | | | TESTS | | | [...] [facility] | [address] | [place], [place] | | | JHON CONTE OF CARE | [address] | [address] | | | TESTS | | | [...] [facility] | [address] | [place], [place] | | | [facility] | [facility] | [address] | | | TESTS | | | [...] + + + | [facility] | [address] | [place], [place] | | | JOHN CONTE OF [facility] | [address] | [address] | | | TESTS | | | [...] bed. | | | | | | Business Account Specialist | | | | | | sections [...] vein. | | | | | | Business Account Specialist | | | | | | sections [...] | | | | | | [id number], metals sales representative | | | | | [...] + + + + | [facility] | [address] | [place] [address] | | | PATHOLOGY | [address] [...]
--- OUTSIDE RECORDS SUMMARY | ~2019-06-13 | XMS | Encounter Summary ---
Demographics + + + | Address | [address] | | | [place] [address] | + + + | Home Phone [...] Providers + +------+ + | Care Psychology Clinician Name | Role | Phone | + [...] Maya | | | | | HIEN [facility] | [facility] | | | | | for [facility] and | [place], [place] | | | | | [facility], [place] [address] | [address] | | | | | [place], [place] | [phone] | | | | | [address] | | | | | | [phone] | | | +--------+ + + + [...]
--- OUTSIDE RECORDS SUMMARY | ~2019-06-13 | XMS | Encounter Summary ---
Demographics + + + | Address | [address] | | | [place] [address] | + + + | Home Phone [...] Team Providers + +------+ + | Care Pattern Layout Worker Name | Role | Phone | [...] | | | | | | | [facility] | | | | | | | for Health | | | | | | | and Healing, | | | | | | | Building [address] | | | | | | | [place], [place] | | | | | | | [address] | | | | | | | Phone: | | | | | | | [phone] | | | | | | | Fax: | | | | | | | [phone] | +--------+--------+ + + + + Encounter [...] | | | | HIEN [facility] | [address] | | | | | for Health and | [place], [place] | | | | | [facility] 2 | [address] | | | | | [place], [place] | [phone] | | | | | [address] | | | | | | [phone] | | | +--------+---------+ + + + [...] the resident s note. Tai Stanton M.D. [facility] ([facility]) Professor and Vice-Logistics Lead of Surgery The Shahriar Nava Chair for Pancreatic Disease Research Pancreatic/ HepatoBiliary and Foregut Working Groups Office email: [email or web address] Rukhsana Patel MD - 05/31/2012 2:07 PM PDT [facility] Department of Surgery [facility] [...] 51 y.o. female patient who presents to [facility] today for follow up for her [...] Pathology: Original path: Materials Received: Referring Institution: [facility], [place] [address] Outside Accession Number: [id number] Sample Collection Date: 03/29/2012 Sublabeled H&E IHC [...] plan. Rukhsana Tesfaye MD Surgery, R1 Pager: [phone] documented in this e ncounter Plan of Treatment Not on filedocumented as of this encounter Visit Diagnoses + + | Diagnosis | + + | Encounter for wound care - Primary Encounter for other specified aftercare | + + documented in this encounter
--- OUTSIDE RECORDS SUMMARY | ~2019-06-13 | XMS | Encounter Summary ---
Demographics + + + | Address | [address] | | | [place] [address] | + + + | Home Phone [...] Team Providers + +------+ + | Care Textile Machinery Sales Representative Name | Role | Phone [...] Visit | Medicine Clinic at | A, JORDAN WORKER [address] | (Primary Dx) | | | | [facility] 4th Floor [address] | | | | | [address] | [place], [place] | | | | | Mailcode: CH4S | [address] | | | | | [facility] | | | | | | and Healing, | | | | | | Building 1,4th Floor | | | | | | [place], [place] | | | | | | [address] | | | | | | [phone] | | | +--------+---------+ + + + [...]
--- OUTSIDE RECORDS SUMMARY | ~2019-06-13 | XMS | Clinical Summary ---
Demographics + + + | Address | [address] | | | [place] [address] | + + + | Home Phone [...] Providers + +------+ + | Care Animal Husbandman Name | Role | Phone | + +------+ + | Valeriy Carmona MD | PCP | | + +------+ + Source Comments GWEN is fully live on both EpicCare Ambulatory and EpicCare InPatient.[facility] Allergies + + + + [...] Ragland at . | | Babak in [place]. -04/26/2012: R0 Resection. | | -05/31/2012-09/03/2012 Chemotherapy: [...] CROSS | | 16-Pre | 8 | [address] | | | | [place] | | sent | | [place], | | | | L | | | | [place] [address] | | + +--------+ +--------+ + +--------+ | [facility] | [facility] | [phone] | 02/14/19 | | | [...] Person | Self | [birth year] | [address] | | | al/Fam | | 1961 | [phone] | [place] | | | jose alejandro | | | 5 (Home) | [address] | + +--------+ +--------+ + + | Aura Upton | Agency | Self | [birth year] | | [address] | | | | | 1961 | [phone] | [place] | | | | | | 5 (Home) | [address] | + +--------+ +--------+ + + Advance Directives + + + + + | Type | Date Recorded | Patient | Explanation | | | | Batter Mixer | | + + + + + | Advance | | | | | Directives and | | | | | Living Will | | | | + + + + + | Power of | | | | | Digital Community Manager | | | | + + + [...]
--- OUTSIDE RECORDS SUMMARY | ~2019-06-13 | XMS | Encounter Summary ---
Demographics + + + | Address | [address] | | | [place] [address] | + + + | Home Phone [...] | [facility] | | | and Eduardoana | + + + | Organization | 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, | [address] [place]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 | MD [address] | [place], | | | | | (HCC) | [address] | [place] [address] | | | | | Procedures | [place], | Phone: | | | | | [place] | [place] [address] | [phone] | | | | | DIPHENHYDRAM | Phone: | Fax: | | | | | INE HCL | [phone] | [phone] | | | | | INJECTIO, 50 | Fax: | | | | | | [place] | [phone] | | | | | | ONDANSETRON [...] | | | | | | [place] | | | | | | [...] | | | | | [address] [place] | | | | | | | CISPLATIN 10 | | | | | | | MG | | | | | | | INJECTION | | | | | | | [place] | | | | | | [...] | | | | | | MCG [place] | | | | | | [...] + + | 05/20/ | Hospital | [facility] | Vladimir Robles, | Gallbladder cancer, | | 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 documented in this encounter Plan of Treatment +--------+---------+ + + + | Date | Type | Specialty | Care Team | Description | +--------+---------+ + + + | 09/17/ | Office | Urology | Pedro Green, | | | 2019 | Visit | | DO [address] | | | | | | [place] [address] | | | | | | [phone] | | | | | | | [...]
--- OUTSIDE RECORDS SUMMARY | ~2019-06-13 | XMS | Encounter Summary ---
Demographics + + + | Address | [address] | | | [place] [address] | + + + | Home Phone [...] Team Providers + +------+ + | Care Rolled Oats Mill Operator Name | Role | Phone [...] employer.) | | | | Services at [facility] | [place] [address] | | | | | [address] | [phone] | | | | | Mailcode: CH5E | | | | | | [facility] | | | | | | and Healing, | | | | | | Building [address], 5th | | | | | | [place], [place] | | | | | | [address] | | | | | | [phone] | | | +--------+ + + + [...]
--- OUTSIDE RECORDS SUMMARY | ~2019-06-13 | XMS | Encounter Summary ---
Demographics + + + | Address | [address] | | | [place] [address] | + + + | Home Phone [...] | Author | [facility] | | | and Eduardoana | + + + | Organization | [facility] | | | and Eduardoana | + + + | Address | Unknown | + + + | Phone | Unavailable | + + + Support + + + + + | Name | Relationship | Address | Phone | + + + + + | Poncho Oquendo | ECON | [address] | | | | | [facility] [place] | | | | | [address] | | + + + + + | Marta Upton | ECON | [place] | | | | | [address] | | + + + + + Care Team Providers + +------+ + | Care Letter Stamping Machine Operator Name | Role | Phone [...] + + | 04/19/ | Telephone | [facility] | Pedro Green, | Other (Labs for | | 2019 | | UROLOGY [address] | DO [address] | Procedure) | | | | [address] | [place] [address] | | | | | [place], [place] | [phone] | | | | | [address] | | | | | | [phone] | | | +--------+ + + + [...] | | | | | [place] [address] | | | | | | [phone] | | | | | | | | +--------+---------+ + + + documented as of this encounter Visit Diagnoses Not on filedocumented in this encounter"
--- OUTSIDE RECORDS SUMMARY | ~2019-06-13 | XMS | Encounter Summary ---
Demographics + + + | Address | [address] | | | [place] [address] | + + + | Home Phone [...] Providers + +------+ + | Care Cyber Software Engineer Name | Role | Phone [...] | MD | | | | | [facility] 4th Floor [address] | | | | | | [address] | | | | | | Mailcode: CH4S | | | | | | [facility] | | | | | | and Healing, | | | | | | Building 1,4th Floor | | | | | | [place], [place] | | | | | | [address] | | | | | | [phone] | | | +--------+ + + + [...] Zhane Pang - 04/27/2012 1:41 PM PDTOR professor of apologeticsJeanine ,(name) called the Pre Operative [facility] on 04/27/12 (date) at 1pm(time) and requested delivery of the following inform ation to this patient: Surgery arrival date/ time:04/28/12 6am (date/time) [facility] to arrive [facility] ([facility] Information delivered to patient as requested. documented in this encounter Plan of Treatment Not on filedocumented as of this encounter Visit Diagnoses Not on filedocumented in this encounter"
--- OUTSIDE RECORDS SUMMARY | ~2019-06-13 | XMS | Encounter Summary ---
Demographics + + + | Address | [address] | | | [place] [address] | + + + | Home Phone [...] Providers + +------+ + | Care Health Informatics Advisor Name | Role | Phone | [...] Maya | | | | | HIEN [facility] | [facility] | | | | | for [facility] and | [place], [place] | | | | | [facility], [place] [address] | [address] | | | | | [place], [place] | [phone] | | | | | [address] | | | | | | [phone] | | | +--------+ + + + [...]
--- OUTSIDE RECORDS SUMMARY | ~2019-06-13 | XMS | Encounter Summary ---
Demographics + + + | Address | [address] | | | [place] [address] | + + + | Home Phone [...] Team Providers + +------+ + | Care Macerator Operator Name | Role | Phone | + +------+ + | Tomasa Wagner | PCP | | + +------+ + Encounter Details +--------+ + + + + | Date | Type | Department | Care Team | Description | +--------+ + + + + | 06/12/ | Telephone | [facility] | Tai Stanton, | | | 2012 | | Center at [facility] [address] | [address] | | | | | HIEN [facility] | [facility] | | | | | for Health and | [place], [place] | | | | | [facility], [place] [address] | [address] | | | | | [place], [place] | [phone] | | | | | [address] | | | | | | [phone] | | | +--------+ + + + [...]
--- OUTSIDE RECORDS SUMMARY | ~2019-06-13 | XMS | Encounter Summary ---
Demographics + + + | Address | [address] | | | [place] [address] | + + + | Home Phone [...] Team Providers + +------+ + | Care Compounder Flavorings Name | Role | Phone | + [...] | 2014 | Encounter | [facility] | [address] | Return to Work | | | | [address] [place] | [address] | Authorization? | | | | [address] | [place], [place] | | | | | Alexis, [facility] floor | [address] | | | | | [place], [place] | [phone] | | | | | [address] | | | | | | [phone] | | | +--------+ + + + [...]
--- OUTSIDE RECORDS SUMMARY | ~2019-06-13 | XMS | Encounter Summary ---
Demographics + + + | Address | [address] | | | [place] [address] | + + + | Home Phone [...] Team Providers + +------+ + | Care Feller Seam Operator Name | Role | Phone | [...] at [facility] [address] | [address] | | | | | HIEN [facility] | [facility] | | | | | for Health and | [place], [place] | | | | | [facility], [place] [address] | [address] | | | | | [place], [place] | [phone] | | | | | [address] | | | | | | [phone] | | | +--------+ + + + [...]
--- OUTSIDE RECORDS SUMMARY | ~2019-06-13 | XMS | Encounter Summary ---
Demographics + + + | Address | [address] | | | [place] [address] | + + + | Home Phone [...] | Author | [facility] | | | and Eduardoana | + + + | Organization | [facility] | | | and Eduardoana | + + + | Address | Unknown | + + + | Phone | Unavailable | + + + Support + + + + + | Name | Relationship | Address | Phone | + + + + + | Poncho Oquendo | ECON | [address] | | | | | [place] | | | | | [address] | | + + + + + | Marta Upton | ECON | [place] | | | | | [address] | | + + + + + Care Team Providers + +------+ + | Care Catalogue Compiler Name | Role | Phone | + [...] W | | | | | | [place], | | | | | | [place] [address] | | | | | | [phone] | | | +--------+ + + + [...] [address] | | | | | | [place] [address] | | | | | | [phone] | | | | | | | | +--------+---------+ + + + documented as of this encounter Visit Diagnoses Not on filedocumented in this encounter"
--- OUTSIDE RECORDS SUMMARY | ~2019-06-13 | XMS | Encounter Summary ---
Demographics + + + | Address | [address] | | | [place] [address] | + + + | Home Phone [...] Team Providers + +------+ + | Care Cross Enterprise Integrator Name | Role | Phone | [...] [address] | | | | [address] [place], [place] | [address] | | | | | [address] | [place] [address] | | | | | | [phone] | | | | | | | [...]
--- OUTSIDE RECORDS SUMMARY | ~2019-06-13 | XMS | Encounter Summary ---
Demographics + + + | Address | [address] | | | [place] [address] | + + + | Home Phone [...] Author | [facility] | | | and Eduardo[place] | + + + | Organization | [facility] | | | and Eduardoana | + + + | Address | Unknown | + + + | Phone | Unavailable | + + + Support + + + + + | Name | Relationship | Address | Phone | + + + + + | Poncho Oquendo | ECON | [address] | | | | | [facility] [place] | | | | | [address] | | + + + + + | Marta Upton | ECON | [place] | | | | | [address] | | + + + + + Care Team Providers + +------+ + | Care Quality Control Lab Tech Name | Role | Phone [...] 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, | [place]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 | MD [address] | [place], | | | | | (HCC) | [address] | [place] [address] | | | | | Procedures | [place], | Phone: | | | | | [place] | [place] [address] | [phone] | | | | | DIPHENHYDRAM | Phone: | Fax: | | | | | INE HCL | [phone] | [phone] | | | | | INJECTIO, 50 | Fax: | | | | | | MG [place] | [phone] | | | | | | ONDANSETRON | | | | | | | HCL | | | | | | | INJECTION, 1 | | | | | | | MG [place] | | | | | | | DEXAMETHASON | | | | | | | E SODIUM | | | | | | | PHOS, 1 MG | | | | | | | PA | | | | | | | FOSAPREPITAN | | | | | | | T INJECTION, | | | | | | | 1 MG PA | | | | | | | LORAZEPAM | | | | | | | INJECTION, 2 | | | | | | | MG PA | | | | | | | GEMCITABINE | | | | | | | HCL | | | | | | | INJECTION, | | | | | | | 200 MG PA | | | | | | | CISPLATIN 10 | | | | | | | MG | | | | | | | INJECTION | | | | | | | PA | | | | | | | METHYLPREDNI | | | | | | | SOLONE | | | | | | | INJECTION, | | | | | | | 125 MG PA | | | | | | | ADRENALIN | | | | | | | EPINEPHRINE | | | | | | | INJECT, .1 | | | | | | | MG PA | | | | | | | FILGASTIM | | | | | | | (ZARXIO) 300 | | | | | | | MCG/0.5ML | | | | | | | SOSY, PER 1 | | | | | | | MCG PA | | | | | | | INJECTION, | | | | | | | FAMOTIDINE, | | | | | | | 20 MG PA | | | | | | | NORMAL | | | | | | | SALINE | | | | | | | SOLUTION | | | | | | | INFUS, 500 | | | | | | | ML PA | | | | | | | NORMAL | | | | | | | SALINE | | | | | | | SOLUTION | | | | | | | INFUS, 250 | | | | | | | ML PA | | | | | | | STERILE | | | | | | | WATER/SALINE | | | | | | | , 10 ML PA | | | | | | | CHEMOTHER, | | | | | | | IV PUSH,EA | | | | | | | ADD DRUG PA | | | | | | | CHEMOTHER, | | | | | | | IV INFUSION, | | | | | | | 1 HR PA | | | | | | | CHEMOTHER, | | | | | | | IV INFUSION, | | | | | | | EA HR PA | | | | | | | CHEMOTHER,NO | | | | | | | N-HORMONE | | | | | | | ANTI-NEOPL, | | | | | | | SUB-Q/IM PA | | | | | | | [...] + + | 05/27/ | Hospital | [facility] | Vladimir Robles, | Canceled (Clinic | | 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 | MED CTR CHEMO | MD [address] | and/or Provider | | | | INFUSION [address] [place], | Cancellation) | | | | [place], | [place] [address] | | | | | [place] [address] | [phone] | | | | | [phone] | | | +--------+ + + + [...] | | | | | [place] [address] | | | | | | [phone] | | | | | | | | +--------+---------+ + + + documented as of this encounter Visit Diagnoses Not on filedocumented in this encounter"
--- OUTSIDE RECORDS SUMMARY | ~2019-06-13 | XMS | Encounter Summary ---
Demographics + + + | Address | [address] | | | [place] [address] | + + + | Home Phone [...] Author | [facility] | | | and Eduardoana | + + + | Organization | [facility] | | | and Eduardoana | + + + | Address | Unknown | + + + | Phone | Unavailable | + + + Support + + + + + | Name | Relationship | Address | Phone | + + + + + | Poncho Oquendo | ECON | [address] | | | | | [place] | | | | | [address] | | + + + + + | Marta Upton | ECON | [place] | | | | | [address] | | + + + + + Care Team Providers + +------+ + | Care Waiter/Waitress Tourist Class Name | Role | Phone | + +------+ + | Valeriy Carmona DO | PCP | | + +------+ + Encounter Details +--------+ + + + + | Date | Type | Department | Care Team | Description | +--------+ + + + + | 09/16/ | Hospital | [facility] | [facility], | Gallbladder cancer, | | 2015 | Encounter | MED CTR MEDICAL | Epifanio Soler MD [address] | carcinoma (HCC) | | | | [facility] CLIN[facility] [address] [place] | (Primary Dx); | | | | [address] | [place] [address] | Ovarian cyst; | | | | [place] [address] | [phone] | Personal history of | | | | [phone] | | malignant neoplasm | | | [...] [address] | | | | | | [place] [address] | | | | | | [phone] | | | | | | | [...] [address] | [place] | [phone] | | [facility] | | [address] | | | - LABORATORY | | [...] [place] | | | | | | [address] | | | | + + + + + + + + | Specimen | + + | Blood specimen | | (specimen) | + + + + + + + | Performing | Address | City/State/Zipcode | Phone Number | | Organization | | | | + + + + + | [facility] | [address] | [place] [address] | [phone] | + + + + + Comprehensive [...] | mL/min/1.73m2 | [place] | | | MACANESE | RATE,ESTIMATED | | MEDICAL | | | | mL/min/1.26z6Rkjk than | | CENTER - | | [...] [address] | [place] | [phone] | | [facility] | | [address] | | | - LABORATORY | | [...] + | [facility] | [address] | [place] | [phone] | | [facility] | | [address] | | | - LABORATORY | | [...] | | | | | | [facility] | | | | | [...] + | [address] | [address] | [place], [place] | [phone] | | [facility] | | [address] | | | - LABORATORY | | [...] | | | | | | [place] [address] | | | | + + + [...] [address] | [place] [address] | [phone] | + + + + + [place] [...] [address] | [place] | [phone] | | [facility] | | [address] | | | - LABORATORY | | [...]
--- OUTSIDE RECORDS SUMMARY | ~2019-06-13 | XMS | Encounter Summary ---
Demographics + + + | Address | [address] | | | [place] [address] | + + + | Home Phone [...] [facility] | | | and Eduardo[place] | + + + | Organization | [facility] | | | and [place]ardo[place] | + + + | Address | Unknown | + + + | Phone | Unavailable | + + + Support + + + + + | Name | Relationship | Address | Phone | + + + + + | Poncho Oquendo | ECON | [address] | | | | | [place] | | | | | [address] | | + + + + + | Marta Upton | ECON | [place] | | | | | [address] | | + + + + + Care Team Providers + +------+ + | Care Steel Manager Name | Role | Phone | [...] | | | | | Procedures | [address] | [place] | | | | | [place] OFFICE | Phone: | [address] Phone: | | | | | OUTPATIENT | [phone] | [phone] | | | | | VISIT 25 | Fax: | Fax: | | | | | MINUTES | [phone] | [phone] | +--------+--------+ + + + + Encounter Details +--------+ + + + + | Date | Type | Department | Care Team | Description | +--------+ + + + + | 12/17/ | Hospital | [facility] | Reinaldo, | Gallbladder cancer, | | 2015 | Encounter | [facility] | Chad Soler MD [address] | carcinoma (HCC) | | | | ONCOLOGY CLINIC [address] | [address] [place] | (Primary Dx) | | | | [address] [place] | [place] [address] | | | | | [place] [address] | [phone] | | | | | [phone] | | | +--------+ + + + [...] nt from the original. Hematology/Oncology Progress Note [facility] Pt. Name/Age/: Aura Upton 54 y.o. 1960 Med. Record Number: [id number] Date of admission: 12/17/2014 Identifying Statement: Aura Upton is a 54 y.o. female from [address] [place] [address] with Recurrent Cholangiocarcinoma. The patient chart and [...] Brandon Garcia March 29, 2012, pathological specimen [id number], analyzed by Dr. Bowers of [facility] and was notable for a poorly-differentiated adenoc arcinoma of the gallbladder. Liver biopsy demonstrated mild portal inflammation. 2. On April 28, 2012, she successfully underwent an R0 resection by Dr. Tai Stanton at [facility], pathological specimen [id number] was notable for the absence of any residual carcinoma within the gallbladder bed. However, 2/8 regional lym ph nodes contained regionally metastatic disease. 3. Consultation by Dr. Elva Grey of the [facility] on May returned the recommendation for adjuvant chemoradiation therapy following [id number] as follows: Capecitabine at 750 mg/m sq [...] staging by Dr. Oziel Casillas of the [facility]. Pathological analysis was notable for [...] Consultation with Dr. Elva Grey the [facility] in June 26, 2014 who recommended additional chemotherapy was cisplatin at 75 mg meter squared on day 1 a nd gemcitabine 1250 mg per meter squared on day one and day 8 of acute 21 day cycle for 6-8 cycles. A second opinion was obtained by Dr. Richie Thayer of the [facility] iance who returned the recommendation [...] recommendations of Dr. Richie Thayer of the [facility] with gemcitabine at 1000 mg [...] 6 cycles of cisplatin/gemcitabine chemotherapy at the [facility] in [place], [place] on November 29, 2014. 12. Repeat CT scan of the chest, abdomen and pelvis that [facility] on December 17, 2014 demonstrated no radiographic [...] will see Dr. Richie Thayer at the [facility]. Review of Systems: Constitutional: Reports [...] Clin. Oncol.: Golden Gonzalez., Rodger Bro., Steven Figureoa., Birdie Burns., Avery, TLuis Eduardo., José Miguel [...] this chart may have been created with [employer] voice recognition software. Occasi onal wrong-word [...] 2019 | Visit | | DO [address] | | | | | | [place] [address] | | | | | | [phone] | | | | | | | [...]
--- OUTSIDE RECORDS SUMMARY | ~2019-06-13 | XMS | Encounter Summary ---
Demographics + + + | Address | [address] | | | [place] [address] | + + + | Home Phone [...] Team Providers + +------+ + | Care Evp General Counsel Name | Role | Phone | + +------+ + | Tomaas Wagner | PCP | | + +------+ + Reason for Referral Consult to [place] (Routine) +--------+--------+ + + + + | Status | Reason | Specialty | Diagnoses / | Referred By | Referred To | | | | | Procedures | Contact | Contact | +--------+--------+ + + + + | Closed | | Obstetrics & | Diagnoses | Degeest, | [facility] Form [facility]fter Onc | | | | Gynecology | Pelvic mass | MD Miguel | [address] | | | | | Procedures | [address] | [address] | | | | | REQUEST TO | Dana Agosto | [place] | | | | | SURGERY | [address] | Alexis, 7th | | | | | USER INTERFACE DEVELOPER | [place], [place] | floor | | | | | [place] | [address] | [place], [place] | | | | | EXPLORATORY | Phone: | [phone] | | | | | OF ABDOMEN | [phone] | Phone: | | | | | NE RESEC | Fax: | [phone] | | | | | OVAR | [phone] | Fax: | | | | | MALIG+JAKE+PE | | [phone] | | | | | LV NODES [...] & | Diagnoses | Non-[facility] | [facility] Form Drafter Onc | | | | Gynecology | Complex | Epic Dept | [address] | | | | | Cystic Mass, | | [address] | | | | | elevated | | [place] | | | | | [address] per | | Pavilion, 7th | | | | | appt notes | | floor | | | | | | | [place], [place] | | | | | | | [address] | | | | | | | Phone: | | | | | | | [phone] | | | | | | | Fax: | | | | | | | [phone] | +--------+--------+ + + + + Encounter Details +--------+---------+ + + + | Date | Type | Department | Care Team | Description | +--------+---------+ + + + | 05/28/ | [facility] | Miguel Seyomur, | Preoperative testing | | 2015 | Visit | [facility] | [address] | (Primary Dx); | | | | [address] | [address] | Pelvic mass | | | | [address] [place] | [place], [place] | | | | | Alexis, 7th floor | [address] | | | | | [place], [place] | [phone] | | | | | [address] | | | | | | [phone] | | | +--------+---------+ + + + [...] might be diff erent from the original. CLIENT SUCCESS DIRECTOR ONCOLOGY RETURN VISIT 05/28/2014 Referring provider: Valeriy [...] [facility] | [address] | [place] [address] | | | SAM ALONSO | NEAL [...] [facility] | [address] | [place] [address] | | | SERVICES, SAM | NEAL [...] | | | LABORATORY | | | [facility] | | | SERVICES, | | | [...] + + + + + | [facility] | [address] | [place] [address] | | | GAVIN, SAM | NEAL [...]
--- OUTSIDE RECORDS SUMMARY | ~2019-06-13 | XMS | Encounter Summary ---
Demographics + + + | Address | [address] | | | [place] [address] | + + + | Home Phone [...] | Author | [facility] | | | and [place]ardo[place] | + + + | Organization | [facility] | | | and Eduardoana | + + + | Address | Unknown | + + + | Phone | Unavailable | + + + Support + + + + + | Name | Relationship | Address | Phone | + + + + + | Poncho Oquendo | ECON | [address] | | | | | [place] | | | | | [address] | | + + + + + | Marta Upton | ECON | [place] | | | | | [address] | | + + + + + Care Team Providers + +------+ + | Care Bolt Header Name | Role | Phone | + [...] | | Carcinoma | Reinaldo, | [address] | | | | | of gall | Epifanio C, | [place], | | | | | bladder | MD [address] | [place] [address] | | | | | (HCC) | [address] | Phone: | | | | | Procedures | [place], | [phone] | | | | | CT Abdomen | [place] [address] | Fax: | | | | | Pelvis w | Phone: | [phone] | | | | | Contrast | [phone] | | | | | | | Fax: | | | | | | | [phone] | | +--------+--------+ + + + + [...] | (Primary Dx) | | | | [address] [place], | [place] [address] | | | | | [place] [address] | [phone] | | | | | [phone] | | | +--------+ + + + [...] [address] | | | | | | [place] [address] | | | | | | [phone] | | | | | | | [...] [address] | [place] | [phone] | | [facility] | | [address] | | | - LABORATORY | | [...] | | | | | | [place] [address] | | | | + + + [...] [address] | [place] [address] | [phone] | + + + + + Lactate [...] + | [facility] | [address] | [place] | [phone] | | [facility] | | [address] | | | - LABORATORY | | [...] mL/min/1.73m2 | [facility] | | | ZAMBIAN | RATE,ESTIMATED | | MEDICAL | | | | mL/min/1.30r6Pttb than | | CENTER - | | [...] | 8.6 | 8.3 - 10.5 | [facility] | | | | | mg/dL [...] [address] | [place] | [phone] | | [facility] | | [address] | | | - LABORATORY | | [...] [facility] | | | | | | [facility] | | | | | | MEDICAL | | | | | | CENTER - | | | | | | LABORATORY | | + + + + + + | RBC | 3.19 (L) | 3.70 - 5.20 | [facility] | | | | | M/uL | [facility] [...] [address] | [place] | [phone] | | [facility] | | [address] | | | - LABORATORY | | | | + + + + + documented in this encounter Visit Diagnoses + + | Diagnosis | + + | 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
--- OUTSIDE RECORDS SUMMARY | ~2019-06-13 | XMS | Encounter Summary ---
Demographics + + + | Address | [address] | | | [place] [address] | + + + | Home Phone [...] Team Providers + +------+ + | Care Medicine Teacher Name | Role | Phone | + +------+ + PCP | Unavailable | + +------+ + Encounter Details +--------+ + + + + | Date | Type | Department | Care Team | Description | +--------+ + + + + | 04/11/ | Abstract | [facility] | Tai Stanton, | | | 2012 | | [place] [address] | [address] | | | | | [address] [facility] | [facility] | | | | | for Health and | [place], [place] | | | | | [facility], [address] | [address] | | | | | [place], [place] | [phone] | | | | | [address] | | | | | | [phone] | | | +--------+ + + + [...]
--- OUTSIDE RECORDS SUMMARY | ~2019-06-13 | XMS | Encounter Summary ---
Demographics + + + | Address | [address] | | | [place] [address] | + + + | Home Phone [...] [facility] | | | and [place]ardo[place] | + + + | Organization | [facility] | | | and Eduardo[place] | + + + | Address | Unknown | + + + | Phone | Unavailable | + + + Support + + + + + | Name | Relationship | Address | Phone | + + + + + | Poncho Oquendo | ECON | [address] | | | | | [facility] [place] | | | | | [address] | | + + + + + | Marta Upton | ECON | [place], [place] | | | | | [address] | | + + + + + Care Team Providers + +------+ + | Care Cleaner Carpet And Upholstery Name | Role | Phone | + +------+ + | No, Physician | PCP | Unavailable | + +------+ + Encounter Details +--------+ + + + + | Date | Type | Department | Care Team | Description | +--------+ + + + + | 04/26/ | Hospital | [facility] | Pedro Green, | | | 2019 | Encounter | REGIONAL SURGERY | DO [address] | | | | | CENTER INTRA OP | [place] [address] | | | | | [address] | [phone] | | | | | [place], [place] | | | | | | [address] | | | | | | [phone] | | | +--------+ + + + [...] [address] | | | | | | [place] [address] | | | | | | [phone] | | | | | | | [...]
--- OUTSIDE RECORDS SUMMARY | ~2019-06-13 | XMS | Clinical Summary ---
Demographics + + + | Address | [address] | | | [place] [address] | + + + | Home Phone | | + + + | Preferred Language | Unknown | + + + | Marital Status | Unknown | + + + | Yarsanism Affiliation | Unknown | + + + | Race | Unknown | + + + | Ethnic Group | Unknown | + + + Author + + + | Author | [facility] (Historical as of | | | 09-30-18) | + + + | Organization | [facility] (Historical as of | | | 09-30-18) | + + + | Address | Unknown | + + + | Phone | Unavailable | + + + Support + + + + + | Name | Relationship | Address | Phone | + + + + + | Poncho Oquendo | [place] | [address] | | | | | [place], [place] | | | | | [address] | | + + + + + Care Team Providers + +------+ + | Care Ctrs Name | Role | Phone | + [...] Left: | COOK | | 11/12/ | [id number] | | - SnaImplanted: Qty: 1 on | | Ureter | [employer] | | 2019 | /NA | | 07/05/2018 by Pedro Green | | | - ROBERT | | | /[id number] | | W, DO | | | [...] +--------+ +------+-------+---------+ | [facility] | BLUE | [id number] | | | | | | CROSS | | | | | | | BLUE | | | | | | | SHIELD | | | | | | | FEP | | | | | + +--------+ +------+-------+---------+ | /[facility] | YELLOW | [id number] | | | | | PLANS | [...] | Self | [birth year] | Home: | [address] | | | al/Fam | | 2 | [phone] | [place] [address] | | | jose alejandro | | | [phone] | | + +--------+ +--------+ + +
--- OUTSIDE RECORDS SUMMARY | ~2019-06-13 | XMS | Encounter Summary ---
Demographics + + + | Address | [address] | | | [place] [address] | + + + | Home Phone [...] | Author | [facility] | | | and Eduardoana | + + + | Organization | [facility] | | | and Eduardo[place] | + + + | Address | Unknown | + + + | Phone | Unavailable | + + + Support + + + + + | Name | Relationship | Address | Phone | + + + + + | Poncho Oquendo | ECON | [address] | | | | | [place] | | | | | [address] | | + + + + + | Marta Upton | ECON | [place] | | | | | [address] | | + + + + + Care Team Providers + +------+ + | Care Box Brander Name | Role | Phone | + [...] 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, | [address] [place]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 | MD [address] | [place], | | | | | (HCC) | [address] | [place] [address] | | | | | Procedures | [place], | Phone: | | | | | [place] INJ | [place] [address] | [phone] | | | | | PEMBROLIZUMA | Phone: | Fax: | | | | | B, [address] | [phone] | [phone] | | | | | NORMAL | Fax: | | | | | | [place] | [phone] | | | | | | SOLUTION [...] + + | 02/02/ | Hospital | [facility] | Reinaldo, | Gallbladder cancer, | | 2017 | Encounter | MED CTR CHEMO | Epifanio Soler MD [address] | carcinoma (HCC) | | | | INFUSION [address] | [address] [place] | | | | | [place], | [place] [address] | | | | | [place] [address] | [phone] | | | | | [phone] | | | +--------+ + + + [...] [address] | | | | | | [place] [address] | | | | | | [phone] | | | | | | | [...] + + | Performed at: 01 - [place] [address], | REFERENCE LAB | | [place], [place] [id number] 8Th Grade Teacher: Ad Larose MD, Phone: | [facility] | | [phone] | | + + + + + + + + | Performing | Address | City/State/Zipcode | Phone Number | | Organization | | | | + + + + + | REFERENCE LAB | [address] | [place], [place] | [phone] | | [facility] | [facility] | [address] | | + + + + + [...] [address] | [place] | [phone] | | [facility] | | [address] | | | - LABORATORY | | [...] [address] | [place] | [phone] | | [facility] | | [address] | | | - LABORATORY | | [...] 1.47 (H) | 0.60 - 1.30 | [facility] | | | | | mg/dL | [...] mL/min/1.73m2 | [facility] | | | [facility] | RATE,ESTIMATED | | MEDICAL | | | | mL/min/1.81p7Nulh than | | CENTER - | | [...] + | [facility] | [address] | [place] | [phone] | | [facility] | | [address] | | | - LABORATORY | | [...] + | [facility] | [address] | [place] | [phone] | | [facility] | | [address] | | | - LABORATORY | | [...] [address] | [place] | [phone] | | [facility] | | [address] | | | - LABORATORY | | [...]
--- OUTSIDE RECORDS SUMMARY | ~2019-06-13 | XMS | Encounter Summary ---
Demographics + + + | Address | [address] | | | [place] [address] | + + + | Home Phone [...] Team Providers + +------+ + | Care Tug Boat Captain Name | Role | Phone | + [...] | | [address] | [facility] | | | | | [address] [place] | [place], [place] | | | | | Alex[place], 7th floor | [address] | | | | | [place], [place] | [phone] | | | | | [address] | | | | | | [phone] | | | +--------+ + + + [...]
--- OUTSIDE RECORDS SUMMARY | ~2019-06-13 | XMS | Encounter Summary ---
Demographics + + + | Address | [address] | | | [place] [address] | + + + | Home Phone [...] + | Author | [facility] | | | and [place]ardo[place] | + + + | Organization | [facility] | | | and [place] | + + + | Address | Unknown | + + + | Phone | Unavailable | + + + Support + + + + + | Name | Relationship | Address | Phone | + + + + + | Poncho Oquendo | ECON | [address] | | | | | [place] | | | | | [address] | | + + + + + | Marta Upton | ECON | [place] | | | | | [address] | | + + + + + Care Team Providers + +------+ + | Care Act Tutor Name | Role | Phone | [...] + | 10/10/ | Telephone | [facility] | Reinaldo, | Lab Results | | 2018 | | MED [facility] | Epifanio Soler MD [address] | | | | | ONCOLOGY CLINIC 401 | [facility] | | | | | [address] | [place] [address] | | | | | [place] [address] | [phone] | | | | | [phone] | | | +--------+ + + + [...] [address] | | | | | | [place] [address] | | | | | | [phone] | | | | | | | | +--------+---------+ + + + documented as of this encounter Visit Diagnoses Not on filedocumented in this encounter"
--- OUTSIDE RECORDS SUMMARY | ~2019-06-13 | XMS | Encounter Summary ---
Demographics + + + | Address | [address] | | | [place] [address] | + + + | Home Phone [...] | [facility] | | | and [place]ardo[place] | + + + | Organization | [facility] | | | and [place]ardo[place] | + + + | Address | Unknown | + + + | Phone | Unavailable | + + + Support + + + + + | Name | Relationship | Address | Phone | + + + + + | Poncho Oquendo | ECON | [address] | | | | | [place] | | | | | [address] | | + + + + + | Marta Upton | ECON | [place] | | | | | [address] | | + + + + + Care Team Providers + +------+ + | Care Photographic Enlarger Operator Name | Role | Phone | [...] | | | | | mass | [place], LITERARY AGENT | | | | | | Procedures | [address] | | | | | | CT Chest | [place] | | | | | | Abdomen | [place], [place] | | | | | | Pelvis w | [address] | | | | | | Contrast CT | Phone: | | | | | | Abdomen | [phone] | | | | | | Pelvis w | Fax: | | | | | | Contrast | [phone] | | +--------+--------+ + + + + Encounter Details +--------+ + + + + | Date | Type | Department | Care Team | Description | +--------+ + + + + | 05/22/ | Hospital | [facility] | Latoya Holt | Ovarian mass | | 2015 | Encounter | MED CTR CT [address] | [place], LITERARY AGENT [address] | | | | | [place], | [address] [place] | | | | | [place] [address] | [place] [address] | | | | | [phone] | [phone] | | | | | | | [...] BLVD | | | | | | [place] [address] | | | | | | [phone] | | | | | | | [...] | | | administration of 100 mL [id number] contrast. Multiplanar | | | reformatted images [...] intravenous administration of 100 mL | | [id number] contrast. Multiplanar reformatted images created.RADIATION DOSE: DLP [...]
--- OUTSIDE RECORDS SUMMARY | ~2019-06-13 | XMS | Encounter Summary ---
Demographics + + + | Address | [address] | | | [place] [address] | + + + | Home Phone [...] Author | [facility] | | | and Eduardoana | + + + | Organization | [facility] | | | and Eduardoana | + + + | Address | Unknown | + + + | Phone | Unavailable | + + + Support + + + + + | Name | Relationship | Address | Phone | + + + + + | Poncho Oquendo | ECON | [address] | | | | | [facility], [place] | | | | | [address] | | + + + + + | Marta Upton | ECON | [place], [place] | | | | | [address] | | + + + + + Care Team Providers + +------+ + | Care Nurse Ob Name | Role | Phone | + +------+ + PCP | Unavailable | + +------+ + Encounter Details +--------+ + + + + | Date | Type | Department | Care Team | Description | +--------+ + + + + | 10/12/ | Hospital | [facility] | | | | 2012 - | Encounter | [facility] | | | | | [facility] [address] | | | | 10/14/ | | [place] | | | | 2012 | | [address] | | | | | | [phone] | | | +--------+ + + + [...] [facility] | | | | | | [place] [address] | | | | | | [phone] | | | | | | | [...] + | [facility] | [address] | [place] | [phone] | | [facility] | | [address] | | | - LABORATORY | | | | + + + + + | [facility] | [address] | [place] | | | [facility] | | [id number] [place] [address] | | | - LABORATORY | | [...] | | (formerly Mahad) Advia | | [facility] | | | | [...] | | | | [address], [place], [place] | | | | | | [address] CLIA: | | | | | | [id number] | | | | + + + + + + + + | Specimen | + + | | + + + + + + + | Performing | Address | City/State/Zipcode | Phone Number | | Organization | | | | + + + + + | [facility] | [address] | [place] | [phone] | | [facility] | | [address] | | | - LABORATORY | | | | + + + + + | [facility] | [address] | [place], [place] | | | [facility] | | [address] | | | - LABORATORY [...] + | [facility] | [address] | [place], [place] | [phone] | | [facility] | | [address] | | | - LABORATORY | | | | + + + + + | [facility] | [address] | [place] | | | [facility] | | [address], [facility] | | | - [...] + | [facility] | [address] | [place] | [phone] | | [facility] | | [address] | | | - LABORATORY | | | | + + + + + | [facility] | [address] | [place] | | | [facility] | | [address] | | | - LABORATORY [...] | | | DIFFERENTIA | | | [facility] | | | L ? | | [...] + | [facility] | [address] | [place], [place] | [phone] | | [facility] | | [address] | | | - LABORATORY | | | | + + + + + | [facility] | [address] | [place], [place] | | | [facility] | | [address], [facility] | | | - [...] | | (formerly Mahad) Advia | | [facility] | | | | Abigail Stewartaur immunoassay | | MEDICAL | | | [...] | | | | [address] [place], [place] | | | | | | [address] CLIA: | | | | | | [id number] | | | | + + + + + + + + | Specimen | + + | | + + + + + + + | Performing | Address | City/State/Zipcode | Phone Number | | Organization | | | | + + + + + | [facility] | [address] | [place], [place] | [phone] | | [facility] | | [address] | | | - LABORATORY | | | | + + + + + | [facility] | [address] | [place], [place] | | | [facility] | | [address], [facility] | | | - [...] + | [facility] | [address] | [place] | [phone] | | [facility] | | [address] | | | - LABORATORY | | | | + + + + + | [facility] | [address] | [place] | | | [facility] | | [address] | | | - LABORATORY [...] + | [facility] | [address] | [place], [place] | [phone] | | [facility] | | [address] | | | - LABORATORY | | | | + + + + + | [facility] | [address] | [place], [place] | | | [facility] | | [address], [facility] | | | - [...] + | [facility] | [address] | [place], [place] | [phone] | | [facility] | | [address] | | | - LABORATORY | | | | + + + + + | [facility] | [address] | [place], [place] | | | [facility] | | [address] [place] [address] | | | - LABORATORY | | [...] | | (formerly Mahad) Advia | | [facility] | | | | [...] Age[place] | | | | | | [address] CLIA: | | | | | | [id number] | | | | + + + + + + + + | Specimen | + + | | + + + + + + + | Performing | Address | City/State/Zipcode | Phone Number | | Organization | | | | + + + + + | [facility] | [address] | [place], [place] | [phone] | | [facility] | | [address] | | | - LABORATORY | | | | + + + + + | [facility] | [address] | [place] | | | [facility] | | [address] [place] [address] | | | - LABORATORY | | [...] + | [facility] | [address] | [place] | [phone] | | [facility] | | [address] | | | - LABORATORY | | | | + + + + + | [facility] | [address] | [place] | | | [facility] | | [address], [facility] | | | - [...] + | [facility] | [address] | [place], [place] | [phone] | | [facility] | | [address] | | | - LABORATORY | | | | + + + + + | [facility] | [address] | [place], [place] | | | [facility] | | [address], [facility] | | | - [...] + | [facility] | [address] | [place], [place] | [phone] | | [facility] | | [address] | | | - LABORATORY | | | | + + + + + | [facility] | [address] | [place], [place] | | | [facility] | | [address] [place] [address] | | | - LABORATORY | | [...] | | (formerly Mahad) Advia | | [facility] | | | | Abigail Stewartaur immunoassay | | MEDICAL | | | [...] [place] | | | | | | [address] CLIA: | | | | | | [id number] | | | | + + + + + + + + | Specimen | + + | | + + + + + + + | Performing | Address | City/State/Zipcode | Phone Number | | Organization | | | | + + + + + | [facility] | [address] | [place], [place] | [phone] | | [facility] | | [address] | | | - LABORATORY | | | | + + + + + | [facility] | [address] | [place], [place] | | | [facility] | | [address], [facility] | | | - [...] [address] | [place] | [phone] | | [facility] | | [address] | | | - LABORATORY | | | | + + + + + | [facility] | [address] | [place], [place] | | | [facility] | | [address], [facility] | | | - [...] [address] | [place] | [phone] | | [facility] | | [address] | | | - LABORATORY | | | | + + + + + | [facility] | [address] | [place] | | | [facility] | | [address] [place] [address] | | | - LABORATORY | | | | + + + + + documented in this encounter Visit Diagnoses Not on filedocumented in this encounter"
--- OUTSIDE RECORDS SUMMARY | ~2019-06-13 | XMS | Encounter Summary ---
Demographics + + + | Address | [address] | | | [place] [address] | + + + | Home Phone [...] Team Providers + +------+ + | Care Label Printing Machinist Name | Role | Phone | [...] HIEN Mojica | | | | | [facility] | [address] | | | | | [facility] and | [place] [address] | | | | | [facility] [address] | [phone] | | | | | [address] [place], | | | | | | [place] [address] | | | | | | [phone] | | | +--------+ + + + [...]
--- OUTSIDE RECORDS SUMMARY | ~2019-06-13 | XMS | Encounter Summary ---
Demographics + + + | Address | [address] | | | [place] [address] | + + + | Home Phone [...] + +------+ + | Care Application Development Director Name | Role | Phone | [...] 2015 | Event | HIEN [address] | [address] | | | | | [facility] | [address] | | | | | Hospital Admitting | [place], [place] | | | | | Desk Located on the | [address] | | | | | 9th floor | [phone] | | | | | [place], [place] | | | | | | [address] | Aurea Rowell RN | | | | | | [address] | | | | | | [address] | | | | | | [place], [place] | | | | | | [address] | | +--------+ + + + + [...] 10:50 | | | | | Starting Ardiana 06/06/14 at 1050, | | AM PDT [...] 10:51 | | | | | Starting [facility] 06/06/14 at 1051, | | AM PDT | | | | | Until [facility] 06/06/14 at 1106 | | | | [...] | | | | INTRAPROCEDURE PRN, Starting Dariana | | 15 10:35 | | | [...]
--- OUTSIDE RECORDS SUMMARY | ~2019-06-13 | XMS | Encounter Summary ---
Demographics + + + | Address | [address] | | | [place] [address] | + + + | Home Phone [...] Providers + +------+ + | Care Clothes Presser Name | Role | Phone | [...] | 2012 | Visit | Center at [facility] [address] | [address] | care (Primary Dx) | | | | [facility] | [address] | | | | | for Health and | [place], [place] | | | | | [facility], [facility] | [address] | | | | | [place], [place] | [phone] | | | | | [address] | | | | | | [phone] | | | +--------+---------+ + + + [...] sooner if she wishes. Tai Stanton M.D. [facility] ([facility]) Professor and Vice-Asphalt Tar [employer] Gravel Roofer of Surgery The [employer] Nava Chair for Pancreatic Disease Research Pancreatic/ HepatoBiliary and Foregut Working Groups Office email: [email or web address] documented in this en counter Plan of Treatment Not on filedocumented as of this encounter Visit Diagnoses + + | Diagnosis | + + | Encounter for wound care - Primary Encounter for other specified aftercare | + + documented in this encounter
--- OUTSIDE RECORDS SUMMARY | ~2019-06-13 | XMS | Encounter Summary ---
Demographics + + + | Address | [address] | | | [place] [address] | + + + | Home Phone [...] | Author | [facility] | | | and Eduardoana | + + + | Organization | [facility] | | | and Eduardoana | + + + | Address | Unknown | + + + | Phone | Unavailable | + + + Support + + + + + | Name | Relationship | Address | Phone | + + + + + | Poncho Oquendo | ECON | [address] | | | | | [place] | | | | | [address] | | + + + + + | Marta Upton | ECON | [place] | | | | | [address] | | + + + + + Care Team Providers + +------+ + | Care Lead Process Engineer Name | Role | Phone [...] | | Carcinoma | Reinaldo, | [address] | | | | | of gall | Epifanio C, | [place], | | | | | bladder | MD [address] | [place] [address] | | | | | (HCC) | [address] | Phone: | | | | | Procedures | [place], | [phone] | | | | | CT Chest | [place] [address] | Fax: | | | | | Abdomen | Phone: | [phone] | | | | | Pelvis w | [phone] | | | | | | Contrast | Fax: | | | | | | | [phone] | | +--------+--------+ + + + + [...] (Primary Dx) | | | | [address] | [place] [address] | | | | | [place] [address] | [phone] | | | | | [phone] | | | +--------+ + + + [...] [address] | | | | | | [place] [address] | | | | | | [phone] | | | | | | | [...] intravenous administration of 100 mL | | [id number] contrast. Oral contrast was administered. Multiplanar reformatted [...]
--- OUTSIDE RECORDS SUMMARY | ~2019-06-13 | XMS | Encounter Summary ---
Demographics + + + | Address | [address] | | | [place] [address] | + + + | Home Phone [...] + | Author | [facility] | | | and Eduardoana | + + + | Organization | [facility] | | | and Eduardoana | + + + | Address | Unknown | + + + | Phone | Unavailable | + + + Support + + + + + | Name | Relationship | Address | Phone | + + + + + | Poncho Oquendo | ECON | [address] | | | | | [place] | | | | | [address] | | + + + + + | Marta Upton | ECON | [place] | | | | | [address] | | + + + + + Care Team Providers + +------+ + | Care Alternative Dispute Resolution Mediator Name | Role | Phone | + [...] | | | | | Procedures | [address] | [place] [address] | | | | | [place] OFFICE | Phone: | Phone: | | | | | OUTPATIENT | [phone] | [phone] | | | | | VISIT 25 | Fax: | Fax: | | | | | MINUTES | [phone] | [phone] | +--------+--------+ + + + + Encounter Details +--------+ + + + + | Date | Type | Department | Care Team | Description | +--------+ + + + + | 08/06/ | Hospital | [facility] | Vladimir Robles, | Gallbladder cancer, | | 2017 | Encounter | [facility] | [address] | carcinoma (HCC) | | | | [facility]COLOGY CLINIC [address] [place] | (Primary Dx) | | | | [address] [place] | [place] [address] | | | | | [place] [address] | [phone] | | | | | [phone] | | | +--------+ + + + [...] f rom the original. Hematology-Oncology Progress Note [facility] Pt. Name/Age/: Aura Upton 55 y.o. 1960 CSN: [id number] Date of service: 08/06/2016 Provider: Vladimir Robles [...] scheduled. 1. Day 8, cycle #6 of gemcitabine/cis-morongo. 2. Neupogen, Aranesp in [place]. 3. Follow-up scheduled with Dr. Najera on [...] Last chemotherapy was a week ago at [facility]. My chart: active. Medications: Current Outpatient Prescriptions [...] this chart may have been created with Aardvark voice recognition software. Occasi onal wrong-word or [...] | | | | | | [place] [address] | | | | | | [phone] | | | | | | | [...]
--- OUTSIDE RECORDS SUMMARY | ~2019-06-13 | XMS | Encounter Summary ---
Demographics + + + | Address | [address] | | | [place] [address] | + + + | Home Phone [...] Providers + +------+ + | Care Can Washer Name | Role | Phone | + +------+ + | Tomasa Wagner | PCP | | + +------+ + Reason for Visit + + + | Reason | Comments | + + + | Medical Records | [facility] - OUTSIDE RECORDS 03/18/14 OV Summary | | Review | | + + + Encounter Details +--------+ + + + + | Date | Type | Department | Care Team | Description | +--------+ + + + + | 03/22/ | Abstract | [facility] | Tai Stanton, | Medical Records | | 2015 | | [place] [address] | [address] | Review ([facility] - | | | | [facility] | [facility] | OUTSIDE RECORDS | | | | for Health and | [place], [place] | 03/18/14 OV Summary) | | | | [facility], [facility] | [address] | | | | | [place], [place] | [phone] | | | | | [address] | | | | | | [phone] | | | +--------+ + + + [...]
--- OUTSIDE RECORDS SUMMARY | ~2019-06-13 | XMS | Encounter Summary ---
Demographics + + + | Address | [address] | | | [place] [address] | + + + | Home Phone [...] Providers + +------+ + | Care Talent Development Director Name | Role | Phone [...] | | | | | Procedures | [place], [place] | [place], [place] | | | | | CONSULT TO | [address] | [address] | | | | | ENT / FACIAL | Phone: | Phone: | | | | | PLASTIC | [phone] | [phone] | | | | | SURGERY | Fax: | Fax: | | | | | | [phone] | [phone] | +--------+--------+ + + + + Encounter [...] | | | Reconstructive | Velma Whitfield [place], | | | | | Services at [facility] | [place] [address] | | | | | [address] | [phone] | | | | | Mailcode: CH5E | | | | | | [facility] | | | | | | and Healing, | | | | | | Building 1, 5th | | | | | | Floor [place], [place] | | | | | | [address] | | | | | | [phone] | | | +--------+---------+ + + + [...] of Otolaryngology/Head and Neck Surgery [facility] [place] tel fax email [email or web address] documented in this encounte r Plan of Treatment Not on filedocumented as of this encounter Visit Diagnoses + + | Diagnosis | + + | Postop check - Primary Follow-up examination, following unspecified surgery | + + documented in this encounter"
--- OUTSIDE RECORDS SUMMARY | ~2019-06-13 | XMS | Encounter Summary ---
Demographics + + + | Address | [address] | | | [place] [address] | + + + | Home Phone [...] Team Providers + +------+ + | Care Engineer Station Mainline Name | Role | Phone | + [...] | | | | | Procedures | [place], [place] | [place], [place] | | | | | CONSULT [place] | [address] | [address] | | | | | ENT / FACIAL | Phone: | Phone: | | | | | PLASTIC | [phone] | [phone] | | | | | SURGERY | Fax: | Fax: | | | | | | [phone] | [phone] | +--------+--------+ + + + + Encounter [...] | | | Reconstructive | Velma Whitfield [place], | Septal Defect | | | | Services at [facility] | [place] [address] | | | | | [address] | [phone] | | | | | Mailcode: KAREEN | | | | | | [facility] | | | | | | and Healing, | | | | | | Building 1, 5th | | | | | | Floor [place], [place] | | | | | | [address] | | | | | | [phone] | | | +--------+---------+ + + + [...] Surgery Dept. of Otolaryngology/Head and Neck [facility] tel fax email [email or web address] documented in this [...]
--- OUTSIDE RECORDS SUMMARY | ~2019-06-13 | XMS | Encounter Summary ---
Demographics + + + | Address | [address] | | | [place] [address] | + + + | Home Phone [...] | Author | [facility] | | | and Eduardoana | + + + | Organization | [facility] | | | and Eduardoana | + + + | Address | Unknown | + + + | Phone | Unavailable | + + + Support + + + + + | Name | Relationship | Address | Phone | + + + + + | Poncho Oquendo | ECON | [address] | | | | | [place] | | | | | [address] | | + + + + + | Marta Upton | ECON | [place] | | | | | [address] | | + + + + + Care Team Providers + +------+ + | Care Cook Room Supervisor Name | Role | Phone | [...] | | Personal | Reinaldo, | [address] | | | | | 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, | [place], | | | | | 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 [address] | [place] [address] | | | | | neoplasm of | [address] | Phone: | | | | | other site | [place], | [phone] | | | | | in | [place] [address] | Fax: | | | | | gastrointest | Phone: | [phone] | | | | | inal tract | [phone] | | | | | | Procedures | Fax: | | | | | | CT Abdomen | [phone] | | | | | | Pelvis [...] | | (HCC) | [place] | [address] [place] | | | | | Procedures | [address] | [place] | | | | | [place] OFFICE | Phone: | [address] Phone: | | | | | OUTPATIENT | [phone] | [phone] | | | | | VISIT 25 | Fax: | Fax: | | | | | MINUTES | [phone] | [phone] | +--------+--------+ + + + + Encounter Details +--------+ + + + + | Date | Type | Department | Care Team | Description | +--------+ + + + + | 03/18/ | Hospital | [facility] | Reinaldo, | Personal history of | | 2015 | Encounter | [facility] | Epifanio Soler MD [address] | malignant neoplasm | | | | ONCOLOGY CLINIC [address] [place] | of other site in | | | | [address] | [place] [address] | gastrointestinal | | | | [place] [address] | [phone] | tract (Primary Dx); | | | | [phone] | | Obesity; Liver | | | [...] Aura Upton is a 53-year-old woman from [place], [place] who h as 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 Tai Stanton of the [facility] April 28, 2012. ACTIVE DIAGNOSES: 1. Presentation with biliary colic in March of 2012 status post cholecystectomy and live r biopsy by Dr. Brandon Garcia March 29, 2012, pathological specimen [id number], analyzed by Dr. Bowers of [facility] and was notable for a poorly-differentiated adenoca rcinoma of the gallbladder. Liver biopsy demonstrated mild portal inflammation. 2. On April 28, 2012, she successfully underwent an R0 resection by Dr. Tai Stanton at [facility], pathological specimen [id number] was notable for the absence of any residual carcinoma within the gallbladder bed. However, 2/8 regional ly mph nodes contained regionally metastatic disease. 3. Consultation by Dr. Elva Grey of the [facility] on May returned the recommendation for adjuvant chemoradiation therapy following [id number] as follows: Capecitabine at 750 mg/m sq [...] 2019 | Visit | | DO [address] [facility] | | | | | | [place] [address] | | | | | | [phone] | | | | | | | [...] [address] | [place] | [phone] | | [facility] | | [address] | | | - LABORATORY | | [...] [place] | | | | | | [address] | | | | + + + [...] [address] | [place] [address] | [phone] | + + + + + [place] [...] Dr, | | | | | | [place] [address] | | | | + + + [...] [address] | [place] [address] | [phone] | + + + + + CEA [...] [address] | [place] | [phone] | | [facility] | | [address] | | | - LABORATORY | | [...] [address] | [place] | [phone] | | [facility] | | [address] | | | - LABORATORY | | [...] | mL/min/1.73m2 | [facility] | | | FIJIAN | RATE,ESTIMATED | | MEDICAL | | | | mL/min/1.73i7Qvtj than | | CENTER - | | [...] | | Total | | | [facility] | | [...] [address] | [place] | [phone] | | [facility] | | [address] | | | - LABORATORY | | [...] [address] | [place] | [phone] | | [facility] | | [address] | | | - LABORATORY | | [...] + | [facility] | [address] | [place] | [phone] | | [facility] | | [address] | | | - LABORATORY | | | | + + + + + | [facility] | [address] | [place], [place] | | | [facility] | | [address], [facility] | | | - LABORATORY | [...] | | | | | mg/dL | [facility] | | | | | | MEDICAL | | | | | | CENTER - | | | | | | LABORATORY | | + + + + + + | eGFR if not | >60Comment: GLOMERULAR | >=60 | [facility] | | | | FILTRATION | mL/min/1.73m2 | [facility] | | | FIJIAN | RATE,ESTIMATED | | MEDICAL | | | | mL/min/1.51k4Wgpy than | | CENTER - | | [...] | | | | | mg/dL | [facility] | | | | | | MEDICAL [...] + | [facility] | [address] | [place], [place] | [phone] | | [facility] | | [address] | | | - LABORATORY | | | | + + + + + | [facility] | [address] | [place] | | | [facility] | | [address] | | | - LABORATORY [...] + | [facility] | [address] | [place] | [phone] | | [facility] | | [address] | | | - LABORATORY | | | | + + + + + | [facility] | [address] | [place] | | | [facility] | | [id number] | | | - LABORATORY [...] + | [facility] | [address] | [place] | [phone] | | [facility] | | [id number] | | | - LABORATORY | | | | + + + + + | [facility] | [address] | [place], [place] | | | [facility] | | [id number] | | | - [...] | | | | | | [place] [id number] | | | | + + + [...] [address] | [place] [address] | [phone] | + + + + + documented [...]
--- OUTSIDE RECORDS SUMMARY | ~2019-06-13 | XMS | Encounter Summary ---
Demographics + + + | Address | [address] | | | [place] [address] | + + + | Home Phone [...] | Author | [facility] | | | and [place]ardo[place] | + + + | Organization | [facility] | | | and Eduardoana | + + + | Address | Unknown | + + + | Phone | Unavailable | + + + Support + + + + + | Name | Relationship | Address | Phone | + + + + + | Poncho Oquendo | ECON | [address] | | | | | [place] | | | | | [address] | | + + + + + | Marta Upton | ECON | [place] | | | | | [address] | | + + + + + Care Team Providers + +------+ + | Care Pastry Baker Name | Role | Phone | + [...] | | Personal | Reinaldo, | [address] | | | | | 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, | [place], | | | | | 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 [address] | [place] [address] | | | | | neoplasm of | [address] | Phone: | | | | | other site | [place], | [phone] | | | | | in | [place] [address] | Fax: | | | | | gastrointest | Phone: | [phone] | | | | | inal tract | [phone] | | | | | | Procedures | Fax: | | | | | | CT Abdomen | [phone] | | | | | | Pelvis [...] | | | | (HCC) | [place] | [address] [place] | | | | | Procedures | [address] | [place] | | | | | [place] OFFICE | Phone: | [address] Phone: | | | | | OUTPATIENT | [phone] | [phone] | | | | | VISIT 25 | Fax: | Fax: | | | | | MINUTES | [phone] | [phone] | +--------+--------+ + + + + Encounter Details +--------+ + + + + | Date | Type | Department | Care Team | Description | +--------+ + + + + | 03/18/ | Hospital | [facility] | Reinaldo, | Personal history of | | 2015 | Encounter | [facility] | Epifanio Soler MD [address] | malignant neoplasm | | | | [facility] CLIN[facility] [address] | [address] [place] | of other site in | | | | [address] | [place] [address] | gastrointestinal | | | | [place] [address] | [phone] | tract (Primary Dx); | | | | [phone] | | Obesity; Liver | | | [...] Aura Upton is a 53-year-old woman from [place], [place] who h as 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 Tai Stanton of the [facility] April 28, 2012. ACTIVE DIAGNOSES: 1. Presentation with biliary colic in March of 2012 status post cholecystectomy and live r biopsy by Dr. Brandon Garcia March 29, 2012, pathological specimen [id number], analyzed by Dr. Bowers of [facility] and was notable for a poorly-differentiated adenoca rcinoma of the gallbladder. Liver biopsy demonstrated mild portal inflammation. 2. On April 28, 2012, she successfully underwent an R0 resection by Dr. Tai Stanton at [facility], pathological specimen [id number] was notable for the absence of any residual carcinoma within the gallbladder bed. However, 2/8 regional ly mph nodes contained regionally metastatic disease. 3. Consultation by Dr. Elva Grey of the [facility] on May returned the recommendation for adjuvant chemoradiation therapy following [id number] as follows: Capecitabine at 750 mg/m sq [...] 2019 | Visit | | DO [address] | | | | | | [place] [address] | | | | | | [phone] | | | | | | | [...] [address] | [place] | [phone] | | [facility] | | [address] | | | - LABORATORY | | [...] [place] | | | | | | [address] | | | | + + + [...] [address] | [place] [address] | [phone] | + + + + + [place] [...] Dr, | | | | | | [place] [address] | | | | + + + [...] [address] | [place] [address] | [phone] | + + + + + CEA [...] [address] | [place] | [phone] | | [facility] | | [address] | | | - LABORATORY | | [...] [address] | [place] | [phone] | | [facility] | | [address] | | | - LABORATORY | | [...] | mL/min/1.73m2 | [facility] | | | PUERTO RICAN | RATE,ESTIMATED | | MEDICAL | | | | mL/min/1.87n8Mpoy than | | CENTER - | | [...] [address] | [place] | [phone] | | [facility] | | [address] | | | - LABORATORY | | [...] [address] | [place] | [phone] | | [facility] | | [address] | | | - LABORATORY | | [...] + | [facility] | [address] | [place] | [phone] | | [facility] | | [address] | | | - LABORATORY | | | | + + + + + | [facility] | [address] | [place], [place] | | | [facility] | | [address], [facility] | | | - [...] | | | | | mg/dL | [facility] | | | | | | MEDICAL | | | | | | CENTER - | | | | | | LABORATORY | | + + + + + + | eGFR if not | >60Comment: GLOMERULAR | >=60 | [facility] | | | | FILTRATION | mL/min/1.73m2 | [facility] | | | [place]ERT[place]ICAN | RATE,ESTIMATED | | MEDICAL | | | | mL/min/1.21z1Zxbo than | | CENTER - | | [...] | | | | | mg/dL | [facility] | | | | | | [...] + | [facility] | [address] | [place], [place] | [phone] | | [facility] | | [address] | | | - LABORATORY | | | | + + + + + | [facility] | [address] | [place] | | | [facility] | | [address] | | | - [...] + | [facility] | [address] | [place] | [phone] | | [facility] | | [address] | | | - LABORATORY | | | | + + + + + | [facility] | [address] | [place] | | | [facility] | | [address] | | | - [...] + | [facility] | [address] | [place] | [phone] | | [facility] | | [address] | | | - LABORATORY | | | | + + + + + | [facility] | [address] | [place], [place] | | | [facility] | | [address] | | | - LABORATORY | | [...] | | | | | | [place] [address] | | | | + + + [...] [address] | [place] [address] | [phone] | + + + + + documented [...]
--- OUTSIDE RECORDS SUMMARY | ~2019-06-13 | XMS | Encounter Summary ---
Demographics + + + | Address | [address] | | | [place] [address] | + + + | Home Phone [...] Team Providers + +------+ + | Care Functional Director Name | Role | Phone | [...] 2015 | Event | HIEN [address]reon | [address] | | | | | [facility] | [address] | | | | | Hospital Admitting | [place], [place] | | | | | Desk Located on the | [address] | | | | | 9th floor | [phone] | | | | | [place], [place] | | | | | | [address] | Aurea Rowell RN | | | | | | [address] | | | | | | [address] | | | | | | [place], [place] | | | | | | [address] | | +--------+ + + + + [...] hand 18g piv; 18; Left; | Charissa Oconnlel RN | Michelle Dow RN | | [...] 10:51 | | | | | Starting [facility] 06/06/14 at 1051, | | AM PDT | | | | | Until [facility] 06/06/14 at 1106 | | | | [...]
--- OUTSIDE RECORDS SUMMARY | ~2019-06-13 | XMS | Encounter Summary ---
Demographics + + + | Address | [address] | | | [place] [address] | + + + | Home Phone [...] | [facility] | | | and [place] | + + + | Organization | [facility] | | | and Eduardo[place] | + + + | Address | Unknown | + + + | Phone | Unavailable | + + + Support + + + + + | Name | Relationship | Address | Phone | + + + + + | Poncho Oquendo | ECON | [address] | | | | | [place] | | | | | [address] | | + + + + + | Marta Upton | ECON | [place] | | | | | [address] | | + + + + + Care Team Providers + +------+ + | Care Supervisor Wound Name | Role | Phone | + [...] | | | | | [address] | [place] [address] | | | | | [place] [address] | [phone] | | | | | [phone] | | | +--------+ + + + [...] | | | [facility] [address] | | | | | | [phone] | | | | | | | | +--------+---------+ + + + documented as of this encounter Visit Diagnoses Not on filedocumented in this encounter"
--- OUTSIDE RECORDS SUMMARY | ~2019-06-13 | XMS | Clinical Summary ---
Demographics + + + | Address | [address] | | | [place] [address] | [...] + | Author | [facility] | | | and [place]ardo[place] | + + + | Organization | [facility] | | | and [place]ardo[place] | + + + | Address | Unknown | + + + | Phone | Unavailable | + + + Support + + + + + | Name | Relationship | Address | Phone | + + + + + | Poncho Oquendo | ECON | [address] | | | | | [facility] [place], [place] | | | | | [address] | | + + + + + | Marta Upton | ECON | [place] | | | | | [address] | | + + + + + Care Team Providers + +------+ + | Care Gun Stocker Name | Role | Phone | [...] | vaginally two times | | | 020 | | e | | vaginal tablet [...] mLs under | 2 | 0 | /2 | 05/16 | Expir | | (NEUPOGEN) 300 | the skin Daily for | Syringe | | 07/03 | 09/02 | ed | | mcg/0.5 [...] + + + | Overview: Problem List [employer] | + + + + [...] | | written pain management agreement/narcotic contract. [[facility] | | Health and Services Provider Handbook [...] Garcia on | | 03/29/2012. Pathological specimen [id number] was analyzed by | | Liu Bowers M.D. of [facility] and was notable | | for a poorly-differentiated adenocarcinoma of the gallbladder. | | Liver biopsy was performed at the same time of the procedure and | | demonstrated portal inflammation.2. On 04/26/2012, she | | successfully underwent a R0 resection by Dr. Tai Stanton, of | | the [facility]. Pathological specimen | | [id number] was notable for the absence of any residual | | carcinoma within the gallbladder bed; however, 2/8 regional lymph | | nodes were positive for regionally metastatic disease.3. | | Consultation with Dr. Elva Grey of the [facility] | | [facility] on 05/17/2012, which returned the | [...] Dr. Miguel Henderson of the | | [facility]. 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 However, 122 of the remaining genes | | analyzed in the assay were all wild type.7. Repeat consultation | | with Dr. Elva Grey of the [facility] | | on 06/26/2014 returned the recommendation for additional | | chemotherapy with cisplatin at 75 mg/m2 on day 1 with gemcitabine | | at 1250 mg/m2 on day-1 and day-8 of the every 21-day cycle for | | 6-8 cycles. This was followed by a second opinion by Dr. Quiroz | | Jeovany of the [facility] who recommended | | chemotherapy with cisplatin [...] recommendations of Dr. Richie Thayer of the [facility] | | [place] with gemcitabine at 1000 mg/m2 on day-1 and day-8 with | | cisplatin 25 mg/m2 on day-1 and day-8 of the every 21-day cycle, | | beginning on 07/26/2014. Chemotherapy was complicated by grade 3 | | neutropenia without fever a grade 3 thrombocytopenia without | | bleeding.10. Repeat CT scan of the abdomen and pelvis on | | 09/16/2014 at the [facility] in [facility] | | [place], demonstrated stable postoperative changes [...] the chest, abdomen, and pelvis at the [facility] in [place], [place], | | demonstrated stable postoperative changes [...] abdomen, and | | pelvis at the [facility] in [place], [place], on | | 06/23/2015 demonstrating postoperative changes in the right upper | | quadrant. No evidence of recurrence or any evidence of | | metastatic disease.15. Repeat CT scan of the chest, abdomen, and | | pelvis at the [facility] in [place], [place], on | | 09/24/2015 demonstrating right upper quadrant post-surgical | | changes. No evidence of recurrent neoplasm. Interval development | | of a small hernia containing bowel and fat 3 cm above the | | umbilicus.16. Repeat CT scan of the abdomen and pelvis on | | 12/22/2015 at the [facility] in [place], [place], | | demonstrating a 1.5 cm soft tissue nodule just inferior to the | | liver within the mesentery on the right. In addition, there were | | tiny nodules in the bilateral upper quadrants.17. PET CT scan at | | [facility] in [place], [place], on 12/31/2015 | | demonstrating benign findings. The nodularity along the omental | | fat along the left colon and liver tail showed no abnormal | | uptake.18. Presentation to the [facility] Emergency | | Room on [...] | Repeat CT scan of C/A/P at [facility] on July 01, 2016 | [...] | | contrast, October 06, 2016, at [facility] in [facility] | | [place], demonstrated no evidence of recurrence or metastatic | | disease. Aura continued on observation without treatment.23. | | Repeat CT scan of the chest/abdomen/pelvis at [facility] demonstrated progression of disease and | [...] will see Dr. Richie Thayer at the [facility] | [facility]. 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 Followed by | | Ellyn at [facility] in [place]. | | -04/26/2012: R0 Resection. -05/31/2012-09/03/2012 | [...] | Oncology | Mathieu Langford | | | 2019 | | | MD [...] Preadmit | Pre-Admission | | | | 2019 | Visit | Testing | | | +--------+ + + + + | 04/19/ | Telephone | Urology | Pedro Green, | Other (Labs for | | 2019 | | | DO | Procedure) | +--------+ + + + + | 03/26/ | Office | Urology | Pedro Green, | Gallbladder cancer, | | 2019 | Visit | | [...] | + + + + | INFLUENZA, [id number], | 04/14/2009 | | | UNSPECIFIED | [...] | | | | | | [place] [address] | | | | | | [phone] | | | | | | | [...] | Stent | | COOK | | 06/28/ | [id number] | | - SnaImplanted: Qty: 1 on | | | [employer] INC | | 2020 | /NA | | 11/29/2018 by Pedro Green | | | - ROBERT | | | /[id number] | | DO Alessandra at [facility] | | | | | | 02 | [facility] | | | | | | | + +-------+--------+ +--------+--------+--------+ | [employer] Ureteral Stent | Stent | Left: | COOK | | 09/06/ | [id number] | | And PositionerImplanted: Qty: | | Ureter | [employer] | | 2021 | 4-R, | | 1 on 04/27/2019 by Peter | | | - ROBRET | | | [id number] | | Pedro Aparicio DO at [facility] | | | | | | /NA | | | | | | | | /[id number] | | | | | | | | 29 | + +-------+--------+ +--------+--------+--------+ | Stent Uro Unvrs Frm 7fr 24cm | | Left: | COOK | | 11/12/ | [id number] | | - SnaImplanted: Qty: 1 on | | Ureter | [employer] | | 2019 | /NA | | 07/05/2018 by Pedro Green | | | - ROBERT | | | /[id number] | | W, DO | | | [...] +--------+ +--------+-------+---------+--------+ | BCBS | BCBS | [id number] | 02/14/19 | | | PPO | | | FEDERA | | 16-Pre | | | | | | L FEP | | sent | | | | + +--------+ +--------+-------+---------+--------+ | BCBS | BCBS | [id number] | 02/14/19 | | | PPO | | | FEDERA | | 16-Pre | | | | | | L FEP | | sent | | | | + +--------+ +--------+-------+---------+--------+ | HEALTH | IHS | [id number] | 1/1/20 | | | Indemn | | SERVICE | YELLOW | | 13-Pre | | | ity | | | HAWK | | sent | | | | + +--------+ +--------+-------+---------+--------+ | [facility] | S | [id number] | 02/14/19 | | | Indemn | [...] Person | Self | [birth year] | [address] | | | al/Jaspreet | | 1961 | [phone] | [place] [address] | | | jose alejandro | | | 5 (Home) | | | | | | | [phone] | | | | | | | 6 (Work) | | + +--------+ +--------+ + + | Aura Upton | Person | Self | [birth year] | | [address] | | | al/Fam | | 1961 | [phone] | [place] [address] | | | jose alejandro | | | 5 (Home) | | + +--------+ +--------+ + + Advance Directives + + + + + | Type | Date Recorded | Patient | Explanation | | | | Air Pollution Compliance Inspector | | + + + + + | Power of | | | | | Ag Equipment Field Service Technician | | | | + + + [...]
--- OUTSIDE RECORDS SUMMARY | ~2019-06-13 | XMS | Encounter Summary ---
Demographics + + + | Address | [address] | | | [place] [address] | + + + | Home Phone [...] | [facility] | | | and [place] | + + + | Organization | [facility] | | | and [place] | + + + | Address | Unknown | + + + | Phone | Unavailable | + + + Support + + + + + | Name | Relationship | Address | Phone | + + + + + | Poncho Oquendo | ECON | [address] | | | | | [place] | | | | | [address] | | + + + + + | Marta Upton | ECON | [place] | | | | | [address] | | + + + + + Care Team Providers + +------+ + | Care Jewel Setter Name | Role | Phone | [...] | | | | mass | [place], SCRAP CARRIER | | | | | | Procedures | [address] | | | | | | CT Chest | ST [place] | | | | | | Abdomen | [place], [place] | | | | | | Pelvis w | [address] | | | | | | Contrast CT | Phone: | | | | | | Abdomen | [phone] | | | | | | Pelvis w | Fax: | | | | | | Contrast | [phone] | | +--------+--------+ + + + + Encounter Details +--------+ + + + + | Date | Type | Department | Care Team | Description | +--------+ + + + + | 05/22/ | Hospital | [facility] | Latoya Holt | Ovarian mass | | 2015 | Encounter | MED [facility] [address] | [place], [address] | | | | | [place], | [address] [place] | | | | | [place] [address] | [place] [address] | | | | | [phone] | [phone] | | | | | | | [...] [address] | | | | | | [place] [address] | | | | | | [phone] | | | | | | | [...] | | | administration of 100 mL [id number] contrast. Multiplanar | | | reformatted images [...] intravenous administration of 100 mL | | [id number] contrast. Multiplanar reformatted images created.RADIATION DOSE: DLP [...]
--- OUTSIDE RECORDS SUMMARY | ~2019-06-13 | XMS | Encounter Summary ---
Demographics + + + | Address | [address] | | | [place] [address] | + + + | Home Phone [...] Providers + +------+ + | Care Production Manufacturing Worker Name | Role | Phone | [...] | | 2014 | | [facility] | [place], [place] | | | | | [address] | [address] | | | | | [address] | | | | | | Alexis, [facility] | | | | | | [place], [place] | | | | | | [address] | | | | | | [phone] | | | +--------+ + + + [...]
--- OUTSIDE RECORDS SUMMARY | ~2019-06-13 | XMS | Encounter Summary ---
Demographics + + + | Address | [address] | | | [place] [address] | + + + | Home Phone [...] Providers + +------+ + | Care Pediatric Audiologist Name | Role | Phone | + +------+ + | Valeriy Carmona MD | PCP | | + +------+ + Encounter Details +--------+ + + + + | Date | Type | Department | Care Team | Description | +--------+ + + + + | 12/23/ | Outside | UNKNOWN DEPARTMENT | Other, Faculty | | | 2018 | Records | [address] | [phone] | | | | | [address] | | | | | | [place], [place] | | | | | | [address] | | | +--------+ + + + [...]
--- OUTSIDE RECORDS SUMMARY | ~2019-06-13 | XMS | Encounter Summary ---
Demographics + + + | Address | [address] | | | [place] [address] | + + + | Home Phone [...] | [facility] | | | and [place] | + + + | Organization | [facility] | | | and [place] | + + + | Address | Unknown | + + + | Phone | Unavailable | + + + Support + + + + + | Name | Relationship | Address | Phone | + + + + + | Poncho Oquendo | ECON | [address] | | | | | [facility] [place] | | | | | [address] | | + + + + + | Marta Upton | ECON | [place], [place] | | | | | [address] | | + + + + + Care Team Providers + +------+ + | Care Program Director/Music Director Name | Role | Phone | + +------+ + | No, Physician | PCP | Unavailable | + +------+ + Encounter Details +--------+ + + + + | Date | Type | Department | Care Team | Description | +--------+ + + + + | 04/26/ | Hospital | [facility] | Pedro Green, | | | 2019 | Encounter | REGIONAL SURGERY | DO [address] | | | | | CENTER INTRA OP | [place] [address] | | | | | [address] | [phone] | | | | | [place], [place] | | | | | | [address] | | | | | | [phone] | | | +--------+ + + + [...] [address] | | | | | | [place] [address] | | | | | | [phone] | | | | | | | [...]
--- OUTSIDE RECORDS SUMMARY | ~2019-06-13 | XMS | Clinical Summary ---
Demographics + + + | Address | [address] | | | [place] [address] | + + + | Home Phone | | + + + | Preferred Language | Unknown | + + + | Marital Status | Unknown | + + + | Lutheran Affiliation | Unknown | + + + | Race | Unknown | + + + | Ethnic Group | Unknown | + + + Author + + + | Author | [facility] (Historical as of | | | 09-30-18) | + + + | Organization | [facility] (Historical as of | | | 09-30-18) | + + + | Address | Unknown | + + + | Phone | Unavailable | + + + Support + + + + + | Name | Relationship | Address | Phone | + + + + + | Poncho Oquendo | [place] | [address] | | | | | [place], [place] | | | | | [address] | | + + + + + Care Team Providers + +------+ + | Care Roller Bearing Inspector Name | Role | Phone [...] Left: | COOK | | 11/12/ | [id number] | | - SnaImplanted: Qty: 1 on | | Ureter | [employer] | | 2019 | /NA | | 07/05/2018 by Pedro Green | | | - ROBERT | | | /[id number] | | W, DO | | | [...] +--------+ +------+-------+---------+ | [facility] | BLUE | [id number] | | | | | | CROSS | | | | | | | BLUE | | | | | | | SHIELD | | | | | | | FEP | | | | | + +--------+ +------+-------+---------+ | /[facility] | YELLOW | [id number] | | | | | PLANS | [...] | Self | [birth year] | Home: | [address] | | | al/Fam | | [phone] | [phone] | [place] [address] | | | jose alejandro | | | [phone] | | + +--------+ +--------+ + +
--- OUTSIDE RECORDS SUMMARY | ~2019-06-13 | XMS | Encounter Summary ---
Demographics + + + | Address | [address] | | | [place] [address] | + + + | Home Phone [...] Author | [facility] | | | and Eduardoana | + + + | Organization | [facility] | | | and Eduardoana | + + + | Address | Unknown | + + + | Phone | Unavailable | + + + Support + + + + + | Name | Relationship | Address | Phone | + + + + + | Poncho Oquendo | ECON | [address] | | | | | [facility] [place] | | | | | [address] | | + + + + + | Marta Corbin | ECON | [place], [place] | | | | | [address] | | + + + + + Care Team Providers + +------+ + | Care Crab Fisherman Name | Role | Phone | + +------+ + PCP | Unavailable | + +------+ + Encounter Details +--------+ + + + + | Date | Type | Department | Care Team | Description | +--------+ + + + + | 09/28/ | Hospital | [facility] | | | | 2012 | Encounter | MED CTR XRAY [address] | | | | | | [place] | | | | | | [place] [address] | | | | | | [phone] | | | +--------+ + + + [...] [address] | | | | | | [place] [address] | | | | | | [phone] | | | | | | | [...] At | + + + | [facility] Diagnostic Imaging | [facility] | | Department [address] [place] [address] | [facility] | | [ rep [address]] [ rep [facility] | | st zip] Signed | - IMAGING | | | | | Patient Name: AURA CORBIN Physician: | | | SHEP.20 : 1960 Age: 51 Sex: F Unit #: [id number] | | | Exam Date: 09/28/12 Location: [facility] | | | Report #: [id number] Page: | | | %(RAD)RES..mtdd.print.filter("pg") of %(RAD) | | | RES..mtdd.print.filter("tpg") | | | | | | Accession Number: [id number] | | | ABDOMINAL ULTRASOUND, 09/28/2012 CLINICAL [...] | | | demonstrates increased echogenicity, likely support representative of fatty | | | infiltration. [...] Transcribed | | | Date/Time: 09/28/2012 12:53 Electrical Integrator: | | | <<Signature on File>> | | | Jj | | | MD Franck09/28/12 2019 <Electronically signed by Jj Juárez MD> | | | Jj Juárez MD 09/28/12 1230 Electrical Integrator: [employer]medx | | | Wntmwaazagywn41/15/13 5901 Tai Stanton MD | | | Tej Boyce DO | | + + + + + + + + | Performing | Address | City/State/Zipcode | Phone Number | | Organization | | | | + + + + + | [facility] | [address] | [place] | [phone] | | [facility] | | [address] | | | - IMAGING | | | | + + + + + XR Abdomen AP (09/28/2012 10:03 AM PDT) + + | Specimen | + + | | + + + + + | Narrative | Performed At | + + + | Accession Number: [id number] ABDOMINAL ULTRASOUND, | | | 09/28/2012 CLINICAL [...] demonstrates increased | | | echogenicity, likely support representative of fatty infiltration. There is | [...] Transcribed | | | Date/Time: 09/28/2012 12:53 Electrical Integrator: | | | <<Signature on File>> | | | Jj | | | MD Franck09/28/12 2019 <Electronically signed by Jj Juárez MD> | | | Jj Juárez MD 09/28/12 1230 Electrical Integrator: [employer]dejan | | | Uxejgjmcrtllz68/15/13 1253 MD Tej Ramachandran, DO | | | | | + + + + + | Procedure Note | + + | Edmundo, Rad Results In - 07/07/2015 9:27 AM PDT Accession Number: [id number] | | ULTRASOUND, 09/28/2012 CLINICAL HISTORY: HISTORY [...] pancreas demonstrates increased | | echogenicity, likely support representative of fatty infiltration. There is limited [...] MD>Jj Juárez MD 09/28/12 | | 1230Transcriptionist: [employer] Xtpawezvnxrnk01/15/13 1253BNusrat Holliday, | | DO | |There [...] 12:30 | |Transcribed Date/Time: 09/28/2012 12:53 | |Electrical Integrator: | | | | | | | |<<Signature on File>> | | | |Jj Juárez MD09/28/12 2019 | |<Electronically signed by Jj Juárez MD> | | | | | |Jj Juárez MD 09/28/12 1230 | |Electrical Integrator: [employer] Nfjamosnjynea59/15/13 1253 | | | | | |Tai Stanton MD | |Tej Boyce, DO | + + documented in this encounter Visit Diagnoses Not on filedocumented in this encounter
--- OUTSIDE RECORDS SUMMARY | ~2019-06-13 | XMS | Encounter Summary ---
Demographics + + + | Address | [address] | | | [place] [address] | + + + | Home Phone [...] Team Providers + +------+ + | Care Guide Dog Instructor Name | Role | Phone | [...] | | | | | [facility] | [facility] | | | | | for Health and | [place], [place] | | | | | [facility] [place] [address] | [address] | | | | | [place], [place] | [phone] | | | | | [address] | | | | | | [phone] | | | +--------+ + + + [...]
--- OUTSIDE RECORDS SUMMARY | ~2019-06-13 | XMS | Encounter Summary ---
Demographics + + + | Address | [address] | | | [place] [address] | + + + | Home Phone [...] Author | [facility] | | | and Eduardoana | + + + | Organization | [facility] | | | and Eduardoana | + + + | Address | Unknown | + + + | Phone | Unavailable | + + + Support + + + + + | Name | Relationship | Address | Phone | + + + + + | Poncho Oquendo | ECON | [address] | | | | | [place] | | | | | [address] | | + + + + + | Marta Upton | ECON | [place] | | | | | [address] | | + + + + + Care Team Providers + +------+ + | Care Grain Grader Name | Role | Phone | [...] | | | ONCOLOGY CLINIC [address] | [facility] | | | | | [facility] | [place] [address] | | | | | [place] [address] | [phone] | | | | | [phone] | | | +--------+ + + + [...] | [facility] [address] | | | | | | [phone] | | | | | | | | +--------+---------+ + + + documented as of this encounter Visit Diagnoses Not on filedocumented in this encounter"
--- OUTSIDE RECORDS SUMMARY | ~2019-06-13 | XMS | Encounter Summary ---
Demographics + + + | Address | [address] | | | [place] [address] | + + + | Home Phone [...] Team Providers + +------+ + | Care Rat Culturist Name | Role | Phone | + +------+ + | Tomasa Wagner | PCP | | + +------+ + Reason for Visit + + + | Reason | Comments | + + + | Medical Records | [facility]: Progress Notes 09/25/2013 [...] 2013 | | Center at [facility] [address] | [address] | Review ([facility] - | | | | [facility] | [facility] | OUTSIDE REOCRDS: | | | | for Health and | [place], [place] | Progress Notes | | | | Healing, [address] | [address] | 09/25/2013 (f/u | | | | [facility] [place] | [phone] | 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
--- OUTSIDE RECORDS SUMMARY | ~2019-06-13 | XMS | Encounter Summary ---
Demographics + + + | Address | [address] | | | [place] [address] | + + + | Home Phone [...] | Author | [facility] | | | and Eduardoana | + + + | Organization | [facility] | | | and Eduardoana | + + + | Address | Unknown | + + + | Phone | Unavailable | + + + Support + + + + + | Name | Relationship | Address | Phone | + + + + + | Poncho Oquendo | ECON | [address] | | | | | [place] | | | | | [address] | | + + + + + | aMrta Upton | ECON | [place] | | | | | [address] | | + + + + + Care Team Providers + +------+ + | Care Production Ski Repairer Name | Role | Phone | [...] | | Personal | Reinaldo, | [address] [place] | | | | | 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, | [place], | | | | | 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 [address] | [place] [address] | | | | | neoplasm of | [address] | Phone: | | | | | other site | [place], | [phone] | | | | | in | [place] [address] | Fax: | | | | | gastrointest | Phone: | [phone] | | | | | inal tract | [phone] | | | | | | Procedures | Fax: | | | | | | CT Abdomen | [phone] | | | | | | Pelvis [...] | | Personal | Reinaldo, | [address] [place] | | | | | 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, | [place], | | | | | 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 [address] | [place] [address] | | | | | neoplasm of | [address] | Phone: | | | | | other site | [place], | [phone] | | | | | in | [place] [address] | Fax: | | | | | gastrointest | Phone: | [phone] | | | | | inal tract | [phone] | | | | | | Procedures | Fax: | | | | | | CT Abdomen | [phone] | | | | | | Pelvis w | | | | | | | Contrast | | | +--------+--------+ + + + + Encounter Details +--------+ + + + + | Date | Type | Department | Care Team | Description | +--------+ + + + + | 03/18/ | Hospital | [facility] | Reinaldo, | Personal history of | | 2015 | Encounter | MED CTR CT [address] | Epifanio Soler MD [address] | malignant neoplasm | | | | [place], | [address] [place] | of other site in | | | | [place] [address] | [place] [address] | gastrointestinal | | | | [phone] | [phone] | tract | | | | | [...] [address] | | | | | | [place] [address] | | | | | | [phone] | | | | | | | [...] + | MISCELLANEOUS LAB | | | [phone] | + +---------+ + + | MISCELANIOUS LAB | | | [phone] | + +---------+ + + documented in [...]
--- OUTSIDE RECORDS SUMMARY | ~2019-06-13 | XMS | Encounter Summary ---
Demographics + + + | Address | [address] | | | [place] [address] | + + + | Home Phone [...] | [facility] | | | and Eduardoana | + + + | Organization | [facility] | | | and Eduardoana | + + + | Address | Unknown | + + + | Phone | Unavailable | + + + Support + + + + + | Name | Relationship | Address | Phone | + + + + + | Poncho Oquendo | ECON | [address] | | | | | [place] | | | | | [address] | | + + + + + | Marta Upton | ECON | [place] | | | | | [address] | | + + + + + Care Team Providers + +------+ + | Care Haunted History Tour Guide Name | Role | Phone | [...] | ONCOLOGY CLINIC [address] | [facility] | | | | | [facility] | [place] [address] | | | | | [place] [address] | [phone] | | | | | [phone] | | | +--------+ + + + [...] [address] | | | | | | [place] [address] | | | | | | [phone] | | | | | | | [...]
--- OUTSIDE RECORDS SUMMARY | ~2019-06-13 | XMS | Encounter Summary ---
Demographics + + + | Address | [address] | | | [place] [address] | + + + | Home Phone [...] Team Providers + +------+ + | Care Chassis Inspector Name | Role | Phone | [...] | | | Stay [address] | [place], [place] | testing; Pelvic | | | | [address] | [address] | mass; Other | | | | Mailcode: [id number] | [phone] | specified | | | | [facility] | | pre-operative | | | | [address] [place], [place] | | examination | | | | [address] | | | | | | [phone] | | | +--------+---------+ + + + [...] Admitting - [facility], ninth floor [facility] Surgery Check in Time: The Preoperative Medicine [...] is after office hours, call the [facility] preparation operator at [phone] and ask them to page him or [...] Date RATE 65 04/27/2012 ATRIALRATE 65 04/27/2012 [place] 142 04/27/2012 QRS 86 04/27/2012 QT 398 [...] to this patient's care. RACHAEL NGUYEN MD HEADING MATCHER AND ASSEMBLERINTEGRITY MANAGER DEPARTMENT OF MEDICINE DIVISION OF HOSPITAL MEDICINE PREOPERATIVE MEDICINE KITCHEN CHEF ORGANIZATIONAL PSYCHOLOGIST [address] [place] [phone] documented in thi s encounter Plan of Treatment Not on filedocumented as of this encounter Procedures + +--------+ + + + | Procedure Name | Priori | Date/Time | Associated Diagnosis | Comments | | | ty | | | | + +--------+ + + + | [place] COLLECTION VENOUS | Routin | 05/28/2014 | [...] [facility] | [address] | [place] [address] | | | SERVICES, | [address] [...] [facility] | [address] | [place] [address] | | | SERVICES, | [address] [...] [facility] | [address] | [place] [address] | | | SAM ALONSO | NEAL [...] + + + + + | [facility] | [address] | [place] [address] | | | SAM ALONSO | NEAL [...] + + + + + | [facility] | [address] | [place] [address] | | | SAM ALONSO | NEAL [...] | | | LABORATORY | | | [place] | | | SERVICES, | | | [...] | + + + + + | [facility] | [address] | [place] [address] | | | SERVICES, CORE | [address] [...] [facility] | [address] | [place], [place] | | | DG POINT OF CARE | [address] | [address] | | | TESTS | | | [...]
--- OUTSIDE RECORDS SUMMARY | ~2019-06-13 | XMS | Encounter Summary ---
Demographics + + + | Address | [address] | | | [place] [address] | + + + | Home Phone [...] Team Providers + +------+ + | Care Socket Welder Helper Name | Role | Phone | [...] 2012 | | Center at [facility] [address] | [address] | | | | | [facility] | [facility] | | | | | for Health and | [place], [place] | | | | | [facility], [place] [address] | [address] | | | | | [place], [place] | [phone] | | | | | [address] | | | | | | [phone] | | | +--------+ + + + [...]
--- OUTSIDE RECORDS SUMMARY | ~2019-06-13 | XMS | Encounter Summary ---
Demographics + + + | Address | [address] | | | [place] [address] | + + + | Home Phone [...] | Author | [facility] | | | and Eduardoana | + + + | Organization | [facility] | | | and Eduardoana | + + + | Address | Unknown | + + + | Phone | Unavailable | + + + Support + + + + + | Name | Relationship | Address | Phone | + + + + + | Poncho Oquendo | ECON | [address] | | | | | [place] | | | | | [address] | | + + + + + | Marta Upton | ECON | [place] | | | | | [address] | | + + + + + Care Team Providers + +------+ + | Care Chemist Food Name | Role | Phone | + [...] [address] [place] | | | | | [place], | [place] [address] | | | | | [place] [address] | [phone] | | | | | [phone] | | | +--------+ + + + [...] [address] | | | | | | [place] [address] | | | | | | [phone] | | | | | | | | +--------+---------+ + + + documented as of this encounter Visit Diagnoses + + | Diagnosis | + + | Gallbladder cancer, carcinoma (HCC) Malignant neoplasm of gallbladder | + + documented in this encounter"
--- OUTSIDE RECORDS SUMMARY | ~2019-06-13 | XMS | Encounter Summary ---
Demographics + + + | Address | [address] | | | [place] [address] | + + + | Home Phone [...] + | Author | [facility] | | | and [place]ardo[place] | + + + | Organization | [facility] | | | and Eduardoana | + + + | Address | Unknown | + + + | Phone | Unavailable | + + + Support + + + + + | Name | Relationship | Address | Phone | + + + + + | Poncho Oquendo | ECON | [address] | | | | | [place] | | | | | [address] | | + + + + + | Marta Upton | ECON | [place] | | | | | [address] | | + + + + + Care Team Providers + +------+ + | Care Solid Waste Facility Supervisor Name | Role | Phone | [...] | | [facility] | [place] [address] | | | | | [place] [address] | [phone] | | | | | [phone] | | | +--------+ + + + [...] | [facility] [address] | | | | | | [phone] | | | | | | | | +--------+---------+ + + + documented as of this encounter Visit Diagnoses Not on filedocumented in this encounter"
--- OUTSIDE RECORDS SUMMARY | ~2019-06-13 | XMS | Encounter Summary ---
Demographics + + + | Address | [address] | | | [place] [address] | + + + | Home Phone [...] + | Author | [facility] | | | and Eduardoana | + + + | Organization | [facility] | | | and Eduardoana | + + + | Address | Unknown | + + + | Phone | Unavailable | + + + Support + + + + + | Name | Relationship | Address | Phone | + + + + + | Poncho Oquendo | ECON | [address] | | | | | [place] | | | | | [address] | | + + + + + | Marta Upton | ECON | [place] | | | | | [address] | | + + + + + Care Team Providers + +------+ + | Care Front End Loader Driver Name | Role | Phone | [...] | Procedures | [address] | [place] [address] | | | | | [place] OFFICE | OBED, | Phone: | | | | | OUTPATIENT | [place] [address] | [phone] | | | | | VISIT 25 | | Fax: | | | | | MINUTES | | [phone] | +--------+--------+ + + + + Encounter Details +--------+ + + + + | Date | Type | Department | Care Team | Description | +--------+ + + + + | 02/02/ | Hospital | [facility] | Ángela Glass | Gallbladder cancer, | | 2017 | Encounter | MED CTR MEDICAL | J, PharmD [address] | carcinoma (HCC) | | | | ONCOLOGY CLINIC [address] | [address] [place] | (Primary Dx) | | | | [address] [place] | [place] [address] | | | | | [place] [address] | [phone] | | | | | [phone] | | | +--------+ + + + [...] original. Clinical Oncology Pharmacy Services Progress Note [facility] Pt. Name/Age/: Aura Upton 56 y.o. 1960 CSN: [id number] Date of service: 02/02/2017 Provider: Ángela Glass PharmD Identifying Statement: Aura Upton is a 56 y.o. female from [address] [place] [address], The encounter diagnosis was Gallbladder cancer, carcinoma [...] 2. Follow up with Dr Najera at [facility] in [place], [place]. 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
--- OUTSIDE RECORDS SUMMARY | ~2019-06-13 | XMS | Encounter Summary ---
Demographics + + + | Address | [address] | | | [place] [address] | + + + | Home Phone [...] + | Author | [facility] | | | and Eduardoana | + + + | Organization | [facility] | | | and Eduardoana | + + + | Address | Unknown | + + + | Phone | Unavailable | + + + Support + + + + + | Name | Relationship | Address | Phone | + + + + + | Poncho Oquendo | ECON | [address] | | | | | [place] | | | | | [address] | | + + + + + | Marta Upton | ECON | [place] | | | | | [address] | | + + + + + Care Team Providers + +------+ + | Care Outside Dealer Sales Representative Name | Role | Phone | + +------+ + | Valeriy Carmona DO | PCP | | + +------+ + Encounter Details +--------+ + + + + | Date | Type | Department | Care Team | Description | +--------+ + + + + | 09/05/ | Orders Only | [facility] | Provider, | | | 2019 | | SYSTEM GENERIC OP | [address] | | | | | CONVERSION [address] | [place] | | | | | [address] [place], [place] | [place] [address] | | | | | [address] | | | | | | [phone] | | | +--------+ + + + [...] [facility] | | | | | | [place] [address] | | | | | | [phone] | | | | | | | | +--------+---------+ + + + documented as of this encounter Visit Diagnoses Not on filedocumented in this encounter"
--- OUTSIDE RECORDS SUMMARY | ~2019-06-13 | XMS | Encounter Summary ---
Demographics + + + | Address | [address] | | | [place] [address] | + + + | Home Phone [...] + | Poncho Oquendo | ECON | [address] | | | | | [place] | | | | | [address] | | + + + + + | Marta Upton | ECON | [place] | | | | | [address] | | + + + + + Care Team Providers + +------+ + | Care Rest Room Attendant Name | Role | Phone | + +------+ + | Valeriy Carmona DO | PCP | | + +------+ + Encounter Details +--------+ + + + + | Date | Type | Department | Care Team | Description | +--------+ + + + + | 08/27/ | Hospital | [facility] | Valeriy Carmona, | Breast nodule | | 2016 | Encounter | MED CTR ULTRASOUND | DO [address] | | | | | [address] [place] | [place] [address] | | | | | [place] | [phone] | | | | | [address] | | | | | | [phone] | Vee Rebolledo | | | | | | A, Technologist | | | | | | [place] | | | | | | [address] | | +--------+ + + + + [...] | | | | | [place] [address] | | | | | | [phone] | | | | | | | [...]
--- OUTSIDE RECORDS SUMMARY | ~2019-06-13 | XMS | Encounter Summary ---
Demographics + + + | Address | [address] | | | [place] [address] | + + + | Home Phone [...] | Author | [facility] | | | and Eduardoana | + + + | Organization | [facility] | | | and Eduardoana | + + + | Address | Unknown | + + + | Phone | Unavailable | + + + Support + + + + + | Name | Relationship | Address | Phone | + + + + + | Poncho Oquendo | ECON | [address] | | | | | [place] | | | | | [address] | | + + + + + | Marta Upton | ECON | [place] | | | | | [address] | | + + + + + Care Team Providers + +------+ + | Care Shelter Monitor Name | Role | Phone | + [...] | | | | | Procedures | [address] | [place] | | | | | [place] OFFICE | Phone: | [address] Phone: | | | | | OUTPATIENT | [phone] | [phone] | | | | | VISIT 25 | Fax: | Fax: | | | | | MINUTES | [phone] | [phone] | +--------+--------+ + + + + Encounter Details +--------+ + + + + | Date | Type | Department | Care Team | Description | +--------+ + + + + | 05/21/ | Hospital | [facility] | Mathieu Langford | Gallbladder cancer, | | 2017 | Encounter | [facility] | MD [address] | carcinoma (HCC) | | | | [facility] [address] | [address] | (Primary Dx) | | | | [address] | [place] [address] | | | | | [place] [address] | [phone] | | | | | [phone] | | | +--------+ + + + [...] from the original. Hem-Onc Progress Note [facility] Pt. Name/Age/: Aura Upton 55 y.o. 1960 Med. Record Number: [id number] Date of admission: 05/21/2016 Assessment and plan: [...] Electronically signed by: Mathieu Langford, 05/21/2016 9:08 [facility] TIME SPENT 20 MIN. > 50% AT BEDSIDE, WITH FAMILY/PATIENT IN CARE AND ELECTROMEDICAL EQUIPMENT REPAIRER ON UNIT AND CO ORDINATION OF CARE Portions of this chart may have been created with [employer] voice recognition software. Occasi onal wrong-word or [...] and 4 hour treatment. (Dr. Najera o sc). She is having concerns about an immune [...] BLVD | | | | | | [place] [address] | | | | | | [phone] | | | | | | | [...] [place] | | | | | | [address] | | | | + + + + + + + + | Specimen | + + | Blood specimen | | (specimen) | + + + + + + + | Performing | Address | City/State/Zipcode | Phone Number | | Organization | | | | + + + + + | [facility] | [address] | [place] [address] | [phone] | + + + + + Lactate [...] [address] | [place] | [phone] | | [facility] | | [address] | | | - LABORATORY | | [...] | 0.97 | 0.60 - 1.30 | [facility] | | | | | mg/dL | [facility] | | | | | | MEDICAL | | | | | | CENTER - | | | | | | LABORATORY | | + + + + + + | eGFR if not | 60Comment: GLOMERULAR | >=60 | [facility] | | | | FILTRATION | mL/min/1.73m2 | [facility] | | | [facility] | RATE,ESTIMATED | | MEDICAL | | | | mL/min/1.89r4Kaen than | | CENTER - | | [...] [address] | [place] | [phone] | | [facility] | | [address] | | | - LABORATORY | | [...] 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
--- OUTSIDE RECORDS SUMMARY | ~2019-06-13 | XMS | Encounter Summary ---
Demographics + + + | Address | [address] | | | [place] [address] | + + + | Home Phone [...] + | Author | [facility] | | | and Eduardoana | + + + | Organization | [facility] | | | and Eduardoana | + + + | Address | Unknown | + + + | Phone | Unavailable | + + + Support + + + + + | Name | Relationship | Address | Phone | + + + + + | Poncho Oquendo | ECON | [address] | | | | | [facility] [place] | | | | | [address] | | + + + + + | Marta Upton | ECON | [place] | | | | | [address] | | + + + + + Care Team Providers + +------+ + | Care Branch Billing Payroll Clerk Name | Role | Phone | [...] + + | 02/12/ | Telephone | [facility] | Pedro Green, | Follow-up | | 2019 | | UROLOGY [address] | DO [address] | | | | | [address] | [place] [address] | | | | | [place], [place] | [phone] | | | | | [address] | | | | | | [phone] | | | +--------+ + + + [...] [address] | | | | | | [place] [address] | | | | | | [phone] | | | | | | | | +--------+---------+ + + + documented as of this encounter Visit Diagnoses Not on filedocumented in this encounter"
--- OUTSIDE RECORDS SUMMARY | ~2019-06-13 | XMS | Encounter Summary ---
Demographics + + + | Address | [address] | | | [place] [address] | + + + | Home Phone [...] Team Providers + +------+ + | Care Critical Care Clinical Nurse Specialist Name | Role | Phone | + +------+ + | Tomasa Wagner | PCP | | + +------+ + Encounter Details +--------+ + + + + | Date | Type | Department | Care Team | Description | +--------+ + + + + | 09/25/ | Telephone | [facility]ive [facility] | Tai Stanton, | | | 2012 | | Center at [facility] [address] | [address] | | | | | [facility] | [facility] | | | | | for [facility] and | [place], [place] | | | | | [facility], [place] [address] | [address] | | | | | [place], [place] | [phone] | | | | | [address] | | | | | | [phone] | | | +--------+ + + + [...]
--- OUTSIDE RECORDS SUMMARY | ~2019-06-13 | XMS | Encounter Summary ---
Demographics + + + | Address | [address] | | | [place] [address] | + + + | Home Phone [...] + | Author | [facility] | | | and Eduardoana | + + + | Organization | [facility] | | | and Eduardoana | + + + | Address | Unknown | + + + | Phone | Unavailable | + + + Support + + + + + | Name | Relationship | Address | Phone | + + + + + | Poncho Oquendo | ECON | [address] | | | | | [place] | | | | | [address] | | + + + + + | Marta Upton | ECON | [place] | | | | | [address] | | + + + + + Care Team Providers + +------+ + | Care Enrollment Consultant Name | Role | Phone | + +------+ + | Valeriy Carmona DO | PCP | | + +------+ + Encounter Details +--------+ + + + + | Date | Type | Department | Care Team | Description | +--------+ + + + + | 08/27/ | Hospital | [facility] | Valeriy Carmona, | Breast nodule | | 2016 | Encounter | MED CTR ULTRASOUND | DO [address] | | | | | [address] | [place] [address] | | | | | [place] | [phone] | | | | | [address] | | | | | | [phone] | Vee Rebolledo | | | | | | A, Technologist | | | | | | [place] | | | | | | [address] | | +--------+ + + + + [...] [address] | | | | | | [place] [address] | | | | | | [phone] | | | | | | | [...]
--- OUTSIDE RECORDS SUMMARY | ~2019-06-13 | XMS | Encounter Summary ---
Demographics + + + | Address | [address] | | | [place] [address] | + + + | Home Phone [...] + | Poncho Oquendo | ECON | [address] | | | | | [place] | | | | | [address] | | + + + + + | Marta Upton | ECON | [place] | | | | | [address] | | + + + + + Care Team Providers + +------+ + | Care Welding Technician Name | Role | Phone | [...] [address] | | | | | [address] | [place] [address] | | | | | [place] [address] | [phone] | | | | | [phone] | | | +--------+ + + + [...] | | | | | [place] [address] | | | | | | [phone] | | | | | | | | +--------+---------+ + + + documented as of this encounter Visit Diagnoses Not on filedocumented in this encounter"
--- OUTSIDE RECORDS SUMMARY | ~2019-06-13 | XMS | Encounter Summary ---
Demographics + + + | Address | [address] | | | [place] [address] | + + + | Home Phone [...] + | Author | [facility] | | | and Eduardoana | + + + | Organization | [facility] | | | and Eduardoana | + + + | Address | Unknown | + + + | Phone | Unavailable | + + + Support + + + + + | Name | Relationship | Address | Phone | + + + + + | Poncho Oquendo | ECON | [address] | | | | | [facility] [place] | | | | | [address] | | + + + + + | Marta Upton | ECON | [place] | | | | | [address] | | + + + + + Care Team Providers + +------+ + | Care Ticket Worker Name | Role | Phone | [...] + | 02/12/ | Telephone | [facility] | Pedro Green, | Missing Paperwork | | 2019 | | UROLOGY [address] | DO [address] | (notes on MyChart); | | | | [address] | [place] [address] | Other (Return pt | | | | [place], [place] | [phone] | call ) | | | | [address] | | | | | | [phone] | | | +--------+ + + + [...] | | | | | [place] [address] | | | | | | [phone] | | | | | | | | +--------+---------+ + + + documented as of this encounter Visit Diagnoses Not on filedocumented in this encounter"
--- OUTSIDE RECORDS SUMMARY | ~2019-06-13 | XMS | Clinical Summary ---
Demographics + + + | Address | [address] | | | [place] [address] | + + + | Home Phone [...] | Author | [facility] | | | and Eduardoana | + + + | Organization | [facility] | | | and Eduardoana | + + + | Address | Unknown | + + + | Phone | Unavailable | + + + Support + + + + + | Name | Relationship | Address | Phone | + + + + + | Poncho Oquendo | ECON | [address] | | | | | [facility], [place] | | | | | [address] | | + + + + + | Marta Upton | ECON | [place] | | | | | [address] | | + + + + + Care Team Providers + +------+ + | Care Cigarette Vendor Name | Role | Phone | + [...] + + + | Overview: Problem List [employer] | + + + + + [...] | | written pain management agreement/narcotic contract. [[facility] | | Health and Services Provider Handbook [...] Garcia on | | 03/29/2012. Pathological specimen [id number] was analyzed by | | Liu Bowers M.D. of [facility] and was notable | | for a poorly-differentiated adenocarcinoma of the gallbladder. | | Liver biopsy was performed at the same time of the procedure and | | demonstrated portal inflammation.2. On 04/26/2012, she | | successfully underwent a R0 resection by Dr. Tai Stanton, of | | the [facility]. Pathological specimen | | [id number] was notable for the absence of any residual | | carcinoma within the gallbladder bed; however, 2/8 regional lymph | | nodes were positive for regionally metastatic disease.3. | | Consultation with Dr. Elva Grey of the [facility] | | [facility] on 05/17/2012, which returned the | [...] Dr. Miguel Henderson of the | | [facility]. 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 However, 122 of the remaining genes | | analyzed in the assay were all wild type.7. Repeat consultation | | with Dr. Elva Grey of the [facility] | | on 06/26/2014 returned the recommendation for additional | | chemotherapy with cisplatin at 75 mg/m2 on day 1 with gemcitabine | | at 1250 mg/m2 on day-1 and day-8 of the every 21-day cycle for | | 6-8 cycles. This was followed by a second opinion by Dr. Quiroz | | Jeovany of the [facility] [place] who recommended | | chemotherapy with cisplatin [...] recommendations of Dr. Richie Thayer of the [facility] | | [place] with gemcitabine at 1000 mg/m2 on day-1 and day-8 with | | cisplatin 25 mg/m2 on day-1 and day-8 of the every 21-day cycle, | | beginning on 07/26/2014. Chemotherapy was complicated by grade 3 | | neutropenia without fever a grade 3 thrombocytopenia without | | bleeding.10. Repeat CT scan of the abdomen and pelvis on | | 09/16/2014 at the [facility] in [facility] | | [place], demonstrated stable postoperative changes involving | | [...] the chest, abdomen, and pelvis at the [facility] in [place], [place], | | demonstrated stable postoperative changes [...] abdomen, and | | pelvis at the [facility] in [place], [place], on | | 06/23/2015 demonstrating postoperative changes in the right upper | | quadrant. No evidence of recurrence or any evidence of | | metastatic disease.15. Repeat CT scan of the chest, abdomen, and | | pelvis at the [facility] in [place], [place], on | | 09/24/2015 demonstrating right upper quadrant post-surgical | | changes. No evidence of recurrent neoplasm. Interval development | | of a small hernia containing bowel and fat 3 cm above the | | umbilicus.16. Repeat CT scan of the abdomen and pelvis on | | 12/22/2015 at the [facility] in [place], [place], | | demonstrating a 1.5 cm soft tissue nodule just inferior to the | | liver within the mesentery on the right. In addition, there were | | tiny nodules in the bilateral upper quadrants.17. PET CT scan at | | [facility] in [place], [place], on 12/31/2015 | | demonstrating benign findings. The nodularity along the omental | | fat along the left colon and liver tail showed no abnormal | | uptake.18. Presentation to the [facility] Emergency | | Room on 03/15/2016 [...] | Repeat CT scan of C/A/P at [facility] on July 01, 2016 | | [...] | | contrast, October 06, 2016, at [facility] in [facility] | | [place], demonstrated no evidence of recurrence or metastatic | | disease. Aura continued on observation without treatment.23. | | Repeat CT scan of the chest/abdomen/pelvis at [facility] demonstrated progression of disease and | [...] will see Dr. Richie Thayer at the [facility] | [facility] [place]. 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 Followed by | | [facility] [place]. | | -04/26/2012: R0 Resection. -05/31/2012-09/03/2012 | [...] | + + + + | INFLUENZA, [id number], | 04/14/2009 | | | UNSPECIFIED | [...] [address] | | | | | | [place] [address] | | | | | | [phone] | | | | | | | [...] | | COOK | | 06/28/ | [id number] | | - SnaImplanted: Qty: 1 on | | | [employer] | | 2020 | /NA | | 11/29/2018 by Pedro Green | | | - ROBERT | | | [id number] | | DO Alessandra at [facility] | | | | | | 02 | [facility] | | | | | | | + +-------+--------+ +--------+--------+--------+ | [employer] Ureteral Stent | Stent | Left: | COOK | | 09/06/ | [facility]-72 | | And PositionerImplanted: Qty: | | Ureter | [employer] | | 2021 | 4-R, | | 1 on 04/27/2019 by Peter | | | - ROBERT | | | [id number] | | Pedro Aparicio DO at [facility] | | | | | | /NA | | | | | | | | /[id number] | | | | | | | | 29 | + +-------+--------+ +--------+--------+--------+ | Stent Uro Unvrs Frm 7fr 24cm | | Left: | COOK | | 11/12/ | [id number] | | - SnaImplanted: Qty: 1 on | | Ureter | [employer] | | 2019 | /NA | | 07/05/2018 by Pedro Green | | | - ROBERT | | | /[id number] | | W, DO | | | [...] +--------+ +--------+-------+---------+--------+ | BCBS | BCBS | [id number] | 02/14/19 | | | PPO | | | FEDERA | | 16-Pre | | | | | | L FEP | | sent | | | | + +--------+ +--------+-------+---------+--------+ | BCBS | BCBS | [id number] | 02/14/19 | | | PPO | | | FEDERA | | 16-Pre | | | | | | L FEP | | sent | | | | + +--------+ +--------+-------+---------+--------+ | HEALTH | IHS | [id number] | 1/1/20 | | | Indemn | | SERVICE | YELLOW | | 13-Pre | | | ity | | | HAWK | | sent | | | | + +--------+ +--------+-------+---------+--------+ | [facility] | S | [id number] | 02/14/19 | | | Indemn | [...] Person | Self | [birth year] | [address] | | | al/Jaspreet | | 1961 | [phone] | [place] [address] | | | jose alejandro | | | 5 (Home) | | | | | | | [phone] | | | | | | | 6 (Work) | | + +--------+ +--------+ + + | Aura Upton | Person | Self | [birth year] | | [address] | | | al/Fam | | 1961 | [phone] | [place] [address] | | | jose alejandro | | | 5 (Home) | | + +--------+ +--------+ + + Advance Directives + + + + + | Type | Date Recorded | Patient | Explanation | | | | Backend Java Developer | | + + + + + | Power of | | | | | Prop Cutter | | | | + + + [...]
--- OUTSIDE RECORDS SUMMARY | ~2019-06-13 | XMS | Encounter Summary ---
Demographics + + + | Address | [address] | | | [place] [address] | + + + | Home Phone [...] Team Providers + +------+ + | Care Banding Machine Operator Name | Role | Phone [...] 2012 | | Center at [facility] [address] | [address] | | | | | HIEN [facility] | [facility] | | | | | for Health and | [place], [place] | | | | | [facility], [place] [address] | [address] | | | | | [place], [place] | [phone] | | | | | [address] | | | | | | [phone] | | | +--------+ + + + [...]
--- OUTSIDE RECORDS SUMMARY | ~2019-06-13 | XMS | Encounter Summary ---
Demographics + + + | Address | [address] | | | [place] [address] | + + + | Home Phone [...] Team Providers + +------+ + | Care Drapery Worker Name | Role | Phone | [...] at [facility] | [address] | | | | | [address] [facility] | [place] [address] | | | | | Mailcode: CH7M | [place] [address] | | | | | [facility] | [phone] | | | | | and Healing, | | | | | | [place] [address] | | | | | | [place], [place] | | | | | | [address] | | | | | | [phone] | | | +--------+ + + + [...]
--- OUTSIDE RECORDS SUMMARY | ~2019-06-13 | XMS | Encounter Summary ---
Demographics + + + | Address | [address] | | | [place] [address] | + + + | Home Phone [...] Providers + +------+ + | Care Electrical Journeyman Name | Role | Phone | + [...] | | 2013 | | Center at [facility] [address] | MD [address] | | | | | [facility] | [facility] | | | | | [facility] and | [place], [place] | | | | | [facility] [address] | [address] | | | | | [place], [place] | [phone] | | | | | [address] | | | | | | [phone] | | | +--------+ + + + [...]
--- OUTSIDE RECORDS SUMMARY | ~2019-06-13 | XMS | Encounter Summary ---
Demographics + + + | Address | [address] | | | [place] [address] | + + + | Home Phone [...] Pharmacy | | | | | | [address] | | | | | | [place], [place] | | | | | | [address] | | | | | | [phone] | | | +--------+ + + + [...]
--- OUTSIDE RECORDS SUMMARY | ~2019-06-13 | XMS | Encounter Summary ---
Demographics + + + | Address | [address] | | | [place] [address] | + + + | Home Phone [...] Providers + +------+ + | Care Chief Program Officer Name | Role | Phone | [...] | | | | | [address] | | | | | | | [facility] | | | | | | | for Health | | | | | | | and Healing, | | | | | | | [address] | | | | | | | [place], [place] | | | | | | | [address] | | | | | | | Phone: | | | | | | | [phone] | | | | | | | Fax: | | | | | | | [phone] | +--------+--------+ + + + + Encounter Details +--------+---------+ + + + | Date | Type | Department | Care Team | Description | +--------+---------+ + + + | 11/01/ | Office | Digestive Health | Tai Stanton, | Gallbladder | | 2012 | Visit | Center at [facility] [address] | MD [address] | carcinoma (HCC) | | | | HIEN [facility] | [address] | (Primary Dx) | | | | for Health and | [place], [place] | | | | | [facility] | [address] | | | | | [place], [place] | [phone] | | | | | [address] | | | | | | [phone] | | | +--------+---------+ + + + [...] the resident s note. Tai Stanton M.D. [employer] ([facility]) Professor and Vice-Hr Internship of Surgery The Shahriar Nava Chair for Pancreatic Disease Research Pancreatic/ HepatoBiliary and Foregut Working Groups Office email: [email or web address] Smitha Ngo Md - 11/01/2012 2:59 [...] primary oncologist (plan for survellence imaging in [facility]) -- Return to surgery clinic as needed Dr. Stanton has seen and examined the patient and agrees with the above plan. 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
--- OUTSIDE RECORDS SUMMARY | ~2019-06-13 | XMS | Encounter Summary ---
Demographics + + + | Address | [address] | | | [place] [address] | + + + | Home Phone [...] Providers + +------+ + | Care Clinical Support Associate Name | Role | Phone | [...] | 2012 | | Center at [facility] [address] | [address] | (Pt requested | | | | HIEN [facility] | [facility] | reports be sent to | | | | [facility] and | [place], [place] | outside ) | | | | [facility] | [address] | | | | | [place], [place] | [phone] | | | | | [address] | | | | | | [phone] | | | +--------+ + + + [...]
--- OUTSIDE RECORDS SUMMARY | ~2019-06-13 | XMS | Encounter Summary ---
Demographics + + + | Address | [address] | | | [place] [address] | + + + | Home Phone [...] | Author | [facility] | | | and Eduardoana | + + + | Organization | [facility] | | | and Eduardoana | + + + | Address | Unknown | + + + | Phone | Unavailable | + + + Support + + + + + | Name | Relationship | Address | Phone | + + + + + | Poncho Oquendo | ECON | [address] | | | | | [facility], [place] | | | | | [address] | | + + + + + | Marta Upton | ECON | [place], [place] | | | | | [address] | | + + + + + Care Team Providers + +------+ + | Care Cutter Operator Brick Name | Role | Phone | + +------+ + PCP | Unavailable | + +------+ + Encounter Details +--------+ + + + + | Date | Type | Department | Care Team | Description | +--------+ + + + + | 09/01/ | Hospital | [facility] | | | | 2012 - | Encounter | MED CTR XRAY [address] | | | | | | [address] | | | | 09/13/ | | [place] [address] | | | | 2012 | | [phone] | | | +--------+ + + + [...] [address] | | | | | | [place] [address] | | | | | | [phone] | | | | | | | [...] | [facility] | [address] | [place], [place] | [phone] | | [facility] | | [address] | | | - LABORATORY | | | | + + + + + | [facility] | [address] | [place], [place] | | | [facility] | | [address], [facility] | | | [...] | | (formerly [facility]ad) Advia | | [facility] | | | | [...] | | | | [address], [place], [place] | | | | | | [address] CLIA: | | | | | | [id number] | | | | + + + + + + + + | Specimen | + + | | + + + + + + + | Performing | Address | City/State/Zipcode | Phone Number | | Organization | | | | + + + + + | [facility] | [address] | [place] | [phone] | | [facility] | | [address] | | | - LABORATORY | | | | + + + + + | [facility] | [address] | [place], [place] | | | [facility] | | [address] | | | - LABORATORY | [...] | [facility] | [address] | [place], [place] | [phone] | | [facility] | | [address] | | | - LABORATORY | | | | + + + + + | [facility] | [address] | [place] | | | [facility] | | [id number] [place] [address] | | | - LABORATORY | | [...] [address] | [place] | [phone] | | [facility] | | [address] | | | - LABORATORY | | | | + + + + + | [facility] | [address] | [place] | | | [facility] | | [address] | | | - LABORATORY | [...] | [facility] | [address] | [place] | [phone] | | [facility] | | [address] | | | - LABORATORY | | | | + + + + + | [facility] | [address] | [place] | | | [facility] | | [address] | | | - LABORATORY | [...] | | (formerly [facility]) Advia | | [facility] | | | | [...] | | | | [address], [place], [place] | | | | | | [address] CLIA: | | | | | | [id number] | | | | + + + + + + + + | Specimen | + + | | + + + + + + + | Performing | Address | City/State/Zipcode | Phone Number | | Organization | | | | + + + + + | [facility] | [address] | [place], [place] | [phone] | | [facility] | | [address] | | | - LABORATORY | | | | + + + + + | [facility] | [address] | [place] | | | [facility] | | [address] | | | - LABORATORY | [...] | | | | | | [facility] | | | | | | MEDICAL [...] | [facility] | [address] | [place], [place] | [phone] | | [facility] | | [address] | | | - LABORATORY | | | | + + + + + | [facility] | [address] | [place], [place] | | | [facility] | | [address], [facility] | | | [...] | [facility] | [address] | [place] | [phone] | | [facility] | | [address] | | | - LABORATORY | | | | + + + + + | [facility] | [address] | [place] | | | [facility] | | [address] | | | - LABORATORY | | | | + + + + + documented in this encounter Visit Diagnoses Not on filedocumented in this encounter"
--- OUTSIDE RECORDS SUMMARY | ~2019-06-13 | XMS | Encounter Summary ---
Demographics + + + | Address | [address] | | | [place] [address] | + + + | Home Phone [...] Team Providers + +------+ + | Care Deburring And Tooling Machine Operator Name | Role | Phone [...] | | | | | Procedures | [place], [place] | [place], [place] | | | | | CONSULT TO | [address] | [address] | | | | | ENT / FACIAL | Phone: | Phone: | | | | | PLASTIC | [phone] | [phone] | | | | | SURGERY | Fax: | Fax: | | | | | | [phone] | [phone] | +--------+--------+ + + + + Encounter [...] | | | | [address] [place], | | | | | Services at [facility] | [place] [address] | | | | | [address] | | | | | | Mailcode: CH5E | | | | | | [facility] | | | | | | and Healing, | | | | | | Building [address], [address]th | | | | | | Floor [place], [place] | | | | | | [address] | | | | | | [phone] | | | +--------+---------+ + + + [...] BTL Allergies: nkda Social History: Lives in [place]. Past smoking history, none now. No alcohol [...] wishes to sc hedule. Jose Olivia MD Heavy Equipment Service Technician Facial Plastic and Reconstructive Surgery Department of Otolaryngology/Head and Neck Surgery [employer] [facility] [employer] [facility] Email - [email or web address] documented in this encounter Plan of Treatment Not on filedocumented as of this encounter Visit Diagnoses + + | Diagnosis | + + | Nasal septal defect - Primary Other diseases of nasal cavity and sinuses | + + documented in this encounter"
--- OUTSIDE RECORDS SUMMARY | ~2019-06-13 | XMS | Encounter Summary ---
Demographics + + + | Address | [address] | | | [place] [address] | + + + | Home Phone [...] | Author | [facility] | | | and Eduardoana | + + + | Organization | [facility] | | | and Eduardoana | + + + | Address | Unknown | + + + | Phone | Unavailable | + + + Support + + + + + | Name | Relationship | Address | Phone | + + + + + | Poncho Oquendo | ECON | [address] | | | | | [place] | | | | | [address] | | + + + + + | Marta Upton | ECON | [place] | | | | | [address] | | + + + + + Care Team Providers + +------+ + | Care Manager Ecommerce Name | Role | Phone | + [...] | | | [facility] [address] | [facility] | | | | | [facility] | [place] [address] | | | | | [place] [address] | [phone] | | | | | [phone] | | | +--------+ + + + [...] | | | | | [place] [address] | | | | | | [phone] | | | | | | | | +--------+---------+ + + + documented as of this encounter Visit Diagnoses Not on filedocumented in this encounter"
--- OUTSIDE RECORDS SUMMARY | ~2019-06-13 | XMS | Encounter Summary ---
Demographics + + + | Address | [address] | | | [place] [address] | [...] | Author | [facility] | | | and Eduardoana | + + + | Organization | [facility] | | | and Eduardoana | + + + | Address | Unknown | + + + | Phone | Unavailable | + + + Support + + + + + | Name | Relationship | Address | Phone | + + + + + | Poncho Oquendo | ECON | [address] | | | | | [facility] [place] | | | | | [address] | | + + + + + | Marta Upton | ECON | [place], [place] | | | | | [address] | | + + + + + Care Team Providers + +------+ + | Care Embossing Toolsetter Name | Role | Phone | + +------+ + PCP | Unavailable | + +------+ + Encounter Details +--------+ + + + + | Date | Type | Department | Care Team | Description | +--------+ + + + + | 09/28/ | Hospital | [facility] | Hakan Cherry | | | 2011 | Encounter | MED CTR XRAY [address] | [address] | | | | | [place] | [address] [place], [place] | | | | | [place] [address] | [address] | | | | | [phone] | | | +--------+ + + + [...] CENTER | | | | | | [place] [address] | | | | | | [phone] | | | | | | | [...] [facility] Diagnostic Imaging Department | [facility] | | [address] [facility] | [facility] | | 09/29/2011, LUMBAR FACET [...] Transcribed Date/Time: | | | 09/30/2011 07:23 Metal Hanging Helper: <Electronically Signed | | | by Hakan Cherry MD> 10/01/11 0936 | | + + + + + | Procedure Note | + + | Edmundo, Rad Conversion - 03/23/2013 5:52 PM [facility] | | Diagnostic Imaging Department | | [address] [facility] | | | | | | [...] | Transcribed Date/Time: 09/30/2011 07:23 | | Metal Hanging Helper: | | <Electronically Signed by Hakan Cherry MD> 10/01/11 0936 | + + + +---------+ + + | Performing | Address | City/State/Zipcode | Phone Number | | Organization | | | | + +---------+ + + | [place] | | | | | [facility] | | | | + +---------+ + + documented in this encounter Visit Diagnoses Not on filedocumented in this encounter"
--- OUTSIDE RECORDS SUMMARY | ~2019-06-13 | XMS | Encounter Summary ---
Demographics + + + | Address | [address] | | | [place] [address] | + + + | Home Phone [...] Author | [facility] | | | and Eduardoana | + + + | Organization | [facility] | | | and Eduardoana | + + + | Address | Unknown | + + + | Phone | Unavailable | + + + Support + + + + + | Name | Relationship | Address | Phone | + + + + + | Poncho Oquendo | ECON | [address] | | | | | [facility] [place] | | | | | [address] | | + + + + + | Marta Upton | ECON | [place], [place] | | | | | [address] | | + + + + + Care Team Providers + +------+ + | Care Curtain Cutter Hand Name | Role | Phone | [...] EMANUEL | | | | | [address] [place] | [place] [address] | | | | | [place] [address] | [phone] | | | | | [phone] | | | +--------+ + + + [...] [address] | | | | | | [place] [address] | | | | | | [phone] | | | | | | | | +--------+---------+ + + + documented as of this encounter Visit Diagnoses Not on filedocumented in this encounter"
--- OUTSIDE RECORDS SUMMARY | ~2019-06-13 | XMS | Encounter Summary ---
Demographics + + + | Address | [address] | | | [place] [address] | + + + | Home Phone [...] Providers + +------+ + | Care Dental Hygiene Administrative Assistant Name | Role | Phone [...] | | 2015 | | [facility] | [address] | (Miguel Seymour) | | | | [address] | [facility] | | | | | [address] | [place], [place] | | | | | Pavilion, [facility] floor | [address] | | | | | [place], [place] | [phone] | | | | | [address] | | | | | | [phone] | | | +--------+ + + + [...]
--- OUTSIDE RECORDS SUMMARY | ~2019-06-13 | XMS | Encounter Summary ---
Demographics + + + | Address | [address] | | | [place] [address] | + + + | Home Phone [...] Team Providers + +------+ + | Care Edge Banding Off Bearer Name | Role | Phone [...] | | (HCC) | | | | [facility] | | | | | | and Healing, | | | | | | Building [address] | | | | | | [place], [place] | | | | | | [address] | | | | | | [phone] | | | +--------+------+ + + + [...] [facility] | [address] | [place] [address] | | | SERVICES, CORE [...] by | | | | | | [address] | | | | | | Lavonne James, [facility] | | | | | | [address] | | | | | | [phone]. | | | | | | [facility], Lala Blum, | | | | | [...] [facility] | [address] | [place], [place] | | | [facility] | | [address] | | + + + + + [...] [facility] | | | | | | [facility],[address] [place] [address] | | | | | | [place] [address] | | | | | | [phone]. | | | | | | augusta, [...] [facility] | [address] | [place], [place] | | | [facility] | | [address] | | + + + + + [...] + + + + | [facility] | [address] | [place] [address] | | | SERVICES, [facility] | [address] | | | + + + + + COMPLETE METABOLIC SET (NA,K,CL,CO2,BUN,CREAT,GLUC,CA,AST,ALT,BILI TOTAL,ALK PHOS,ALB,PROT TOTAL) (04/12/2012 2:04 PM PST) + +---------+ + + + | Component | Value | Ref Range | Performed | Pathologist | | | | | At | Signature | + +---------+ + + + | GLUCOSE, | 100 (H) | 60 - 99 mg/dL | [facility] | | | PLASMA | | | LABORATORY | | | (LAB) | | | SERVICES, | | | | | | GALLATIN FOR | | | | | | [...] | + + + + + | [facility] | [address] | [place] [address] | | | [facility] | | | | | HEALTH + HEALING | | | | + + + + + documented in this encounter Visit Diagnoses + + | Diagnosis | + + | Gallbladder cancer (HCC) Malignant neoplasm of gallbladder | + + documented in this encounter"
--- OUTSIDE RECORDS SUMMARY | ~2019-06-13 | XMS | Encounter Summary ---
Demographics + + + | Address | [address] | | | [place] [address] | + + + | Home Phone [...] | [facility] | | | and Eduardoana | + + + | Organization | [facility] | | | and Eduardoana | + + + | Address | Unknown | + + + | Phone | Unavailable | + + + Support + + + + + | Name | Relationship | Address | Phone | + + + + + | Poncho Oquendo | ECON | [address] | | | | | [facility], [place] | | | | | [address] | | + + + + + | Marta Upton | ECON | [place], [place] | | | | | [address] | | + + + + + Care Team Providers + +------+ + | Care Journeyman Pressman Name | Role | Phone | [...] [address] | | | | | [address] [facility] | | | | | | [place], [place] | | | | | | [address] | | | | | | [phone] | | | +--------+ + + + [...] | | | | | [place] [address] | | | | | | [phone] | | | | | | | [...]
--- OUTSIDE RECORDS SUMMARY | ~2019-06-13 | XMS | Encounter Summary ---
Demographics + + + | Address | [address] | | | [place] [address] | + + + | Home Phone [...] Author | [facility] | | | and Eduardoana | + + + | Organization | [facility] | | | and Eduardoana | + + + | Address | Unknown | + + + | Phone | Unavailable | + + + Support + + + + + | Name | Relationship | Address | Phone | + + + + + | Poncho Oquendo | ECON | [address] | | | | | [place] | | | | | [address] | | + + + + + | Marta Upton | ECON | [place] | | | | | [address] | | + + + + + Care Team Providers + +------+ + | Care Edge Runner Name | Role | Phone | + +------+ + | Valeryi Carmona DO | PCP | | + [...] | | [address] [facility] | [place] [address] | | | | | [place] [address] | [phone] | | | | | [phone] | | | +--------+ + + + [...] [facility] | | | | | | [facility] [address] | | | | | | [phone] | | | | | | | | +--------+---------+ + + + documented as of this encounter Visit Diagnoses Not on filedocumented in this encounter"
--- OUTSIDE RECORDS SUMMARY | ~2019-06-13 | XMS | Encounter Summary ---
Demographics + + + | Address | [address] | | | [place] [address] | + + + | Home Phone [...] Author | [facility] | | | and Eduardoana | + + + | Organization | [facility] | | | and Eduardoana | + + + | Address | Unknown | + + + | Phone | Unavailable | + + + Support + + + + + | Name | Relationship | Address | Phone | + + + + + | Poncho Oquendo | ECON | [address] | | | | | [place] | | | | | [address] | | + + + + + | Marta Upton | ECON | [place] | | | | | [address] | | + + + + + Care Team Providers + +------+ + | Care Speech And Language Assistant Name | Role | Phone | [...] Soler MD [address] | ([facility]) (Primary Dx) | | | | ONCOLOGY [address] [place] | | | | | [place], | [place] [address] | | | | | [place] [address] | [phone] | | | | | [phone] | | | +--------+ + + + [...] [address] | | | | | | [place] [address] | | | | | | [phone] | | | | | | | | +--------+---------+ + + + documented as of this encounter Visit Diagnoses + + | Diagnosis | + + | 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
[~2019-06-13 11:15] MED LIST changes: +GRANIX300 MCG/0. SUB-Q; +HYDROMORPHONE HC4 MG PO; +K-TAB ER20 MEQ PO
--- OUTSIDE RECORDS SUMMARY | 2019-06-13 11:18 | XMS ---
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 Care History Medical/Surgical 06/07/2019 [facility] - PATIENT IS A YELLOWHAWK ELIGIBLE, \T\middot;\T\nbsp; PLEASE REFER PATIENT TO [facility] FOR NON EMERGENT MEDICAL NEEDS. \T\middot;\T\nbsp; [facility] CAN SEE PATIENTS SAME DAY FOR APTS IF PATIENT CALLS FIRST THING IN THE MORNING. 06/09/2017 [facility] HISTORY GALLBLADDER CANCER WITH METS. E.D. VISIT COUNT (12 MO.) [address] [facility] NOTE: Visits indicate total known visits. 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 - Personal history of nicotine dependence - Personal history of nicotine dependence - 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 - Anxiety disorder, unspecified - Opioid dependence, uncomplicated - Hormone replacement therapy - [facility] (current) use of opiate analgesic - Anxiety disorder, unspecified - 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
[2019-06-14] MEDS ORDERED: [UNRECOGNIZED DRUG - OTHER] IV (10:54)
[2019-06-14] MEDS ORDERED: CARBOPLATIN150 MG IV (10:56)
[2019-06-14] MEDS ORDERED: DURAGESIC1 EAC1 TOP (10:57)
--- NOTE | 2019-06-20 09:15 | CONS ---
[facility] [address], [place] [address] Signed DATE OF CONSULTATION: 06/19/2019 CONSULTING PHYSICIAN: Keturah Savage MD. REQUESTING PHYSICIAN: Dr. Houser. PROBLEM: Question of bowel obstruction with known carcinomatosis. HISTORY OF PRESENT ILLNESS: This 58-year-old woman is well known to me from the past. She was admitted to the hospital recently on June 13, [address] Cowart with general complaints at the time of diarrhea. 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 She was noted at time of the operation most recently to have carcinomatosis with small studding of bowel loops throughout the abdomen. A gastrostomy tube was placed at the time as well as she was very much resistant to any nasogastric tube decompression. She had a palliative peg tube previously placed and subsequently removed more than a year ago. Following recent operation, she had prompt recovery of her bowel function with tolerance of an solid diet without problem. she had resumption of oncologic care including chemotherapy by Dr. Najera. Later she began having low-grade abdominal pain. She is known to have opiate dependency and tolerance related to long-standing palliative opiate use for previous abdominal pain. She was managed initially with Dilaudid and subsequently with oxycodone and ultimately with a fentanyl patch to diminish her symptoms of opiate withdrawal. She began concurrently to have diarrhea as well as diminished oral intake. The gastrostomy tube had not been used to vent the stomach particularly, but in time, it became beneficial as she was unable to tolerate oral intake well. Her diarrhea progressed. Her last chemotherapy prior to current admission of June 13, 2019 was on 08 June 2019 where she was given carboplatin and gemcitabine. When nausea with inability to tolerate oral intake was noted within three days of administration of the chemotherapy and due to Electronically Signed By: KETURAH SAVAGE MD 06/20/19 0915 PATIENT NAME: MARIA ELENA CORBIN CONSULTATION DATE OF : 62 REPORT #: [id number] PHYSICIAN: KETURAH SAVAGE MD PCP: [facility] REPORT IS CONFIDENTIAL AND NOT TO BE RELEASED WITHOUT AUTHORIZATION [facility] [address], [place] [address] Signed worsening symptoms, she came to the emergency room. A CT scan was performed, which showed diffuse colonic wall thickening. She did not show signs of bowel obstruction proper. The gastrostomy tube was well positioned in the antrum of the stomach. Given her overall poor ability to tolerate oral intake and CT scan findings, she was admitted for further evaluation and care. Of note, since her previous CT scan of only a month before she was noted to have multiple new hepatic lesions consistent with metastatic disease. There was no evidence of bowel obstruction per se. The anastomosis did not appear to be problematic. Concurrent findings were that of "pancolitis" as well as hypokalemia, likely related to diarrhea, hypomagnesemia similarly caused. She was ultimately found to have C. difficile colitis and was initiated on both IV and oral medication. She was noted to have impressive intolerance of oral intake with profound out take of fluid from her stomach and G-tube. Her medications to manage the C. difficile colitis have included oral vancomycin 125 mg q.i.d. She was given Flagyl 500 mg IV as well due to uncertainty of absorption or even passage of her vancomycin through the GI tract. It was unclear if she had an actual bowel obstruction and on that basis yesterday underwent a small-bowel follow-through with a 50:50 mixture of Gastrografin and barium administered via her G-tube. The small bowel study thus performed showed passage of contrast through the C-loop of the duodenum to the ligament of Treitz, which was somewhat delayed and then with the next film, a fair amount of contrast in the right colon without opacification of the intervening small bowel loops. Notably, there remained residual contrast in the stomach. Delayed films performed this morning still show barium within the stomach and contrast has passed from the right colon now down to the rectum. At present, the patient feels reasonably well. She is on intravenous fluids. Her G-tube is episodically vented of fluid. She is allowed clear liquid diet, it appears. She has no significant abdominal pain particularly and no opiate withdrawal symptoms, specifically no muscle cramping or anything of that sort. PHYSICAL EXAMINATION: GENERAL: She appears alert and not toxic in any way. VITAL SIGNS: Temperature is 98.3, pulse is 97, blood pressure 119/66, room air ox saturation is 96%. NECK: Shows no thyromegaly. CHEST: Shows normal respiratory excursion. There is no tachypnea. Electronically Signed By: KETURAH SAVAGE MD 06/20/19 0915 PATIENT NAME: MARIA ELENA CORBIN CONSULTATION DATE OF : 62 REPORT #: [id number] PHYSICIAN: KETURAH SAVAGE MD PCP: [facility] REPORT IS CONFIDENTIAL AND NOT TO BE RELEASED WITHOUT AUTHORIZATION [address] [address] Signed ABDOMEN: Somewhat obese, but flat and nondistended. Midline incision is well healed. Palpation reveals no focal mass, no ascites and no tenderness. EXTREMITIES: Shows no clubbing, cyanosis, or edema. LABORATORY STUDIES: Today show a white count of 3.6, hematocrit of 27.6, yesterday 34.9, platelets 195,000. Chem profile shows essentially normal electrolytes. Glucose 134, calcium 7.9, magnesium 1.8. Recent urinalysis showed a specific gravity of 1.070 at time of admission consistent with dehydration, otherwise essentially normal bacteria 1+, squames 1+ as well. Serologic tests show C. difficile antigen positive on June 13, 2019. Romero virus assessment was negative. I reviewed in detail her imaging studies including CT scan as well as small-bowel follow-through performed recently. ASSESSMENT: Her initial CT scan did show diffuse thickening of the colon, which is consistent with a C. difficile colitis, which has been under treatment including IV Flagyl and oral vancomycin. This would account for diarrhea to be sure. The small bowel follow-through is somewhat ambiguous in its appearance. Contrast did migrate to the colon and has evacuated further. There was not a detailed examination of small bowel loops. A 1.5 hour interval of x-rays showed contrast in the duodenum and proximal jejunum and subsequently into the right colon and beyond. Notable however is the residual of barium in the stomach even today. Consideration is made for gastric dysfunction (gastroparesis), whether temporary or otherwise, which may be contributing to her overall problem. Close questioning reveals that her sister does have likely gastroparesis and takes a medicine "from out of the country." I suspect this is domperidone, a promotility agent available in [place] and elsewhere, but not available in the [place]. She does not have distinct or discrete bowel obstruction for which a operative remedy would be likely. She is certainly known to have carcinomatosis and in the intervening four weeks from her operation now numerous hepatic lesions not previously identified by CAT scan or PET scan done several weeks ago. Much of this may represent a progression of her disease including motility dysfunction as well as possible degrees of mechanical obstruction related to carcinomatosis. It is notable she has no sign of ascites. I do not feel at this time that exploration of the abdomen would be beneficial as there is no demonstrated discrete obstruction, which could be resected or bypassed for palliative intent. Of course, this may change release manager time, it is uncertain. A reasonably safe intervention might include the administration of Reglan 10 mg q.i.d. or if the patient is anticipating TPN as I have learned that she likely is then 40 mg infused over 24 hours. If she does have an underlying gastroparesis, this may be of benefit, though commonly has no beneficial effect. Electronically Signed By: KETURAH SAVAGE MD 06/20/19 0915 PATIENT NAME: MARIA ELENA CORBIN CONSULTATION DATE OF : 62 REPORT #: [id number] PHYSICIAN: KETURAH SAVAGE MD PCP: [facility] REPORT IS CONFIDENTIAL AND NOT TO BE RELEASED WITHOUT AUTHORIZATION [facility] [address] [place] [id number] Signed Continued treatment for C. difficile, is clearly indicated and a test of cure with stool evaluation would be anticipated in the future as well. The inflammatory effect of the colitis on general bowel function and "ileus like" dysmotility is probable. The effect of known generalized involvement of the abdomen with carcinomatosis is obviously contributory. The extent to which side effects from her chemotherapeutic regimen impairs her gastrointestinal function remains uncertain. I will continue to follow the patient at the discretion of the hospitalist and remain open to the idea of abdominal exploration if a benefit could be anticipated from doing so. Keturah Savage MD /MODL /[id number] cc: MD Chad Rice MD Dr. Paudyal Copies: RADHA COWART MD,CHAD Soler MD ~ Electronically Signed By: KETURAH SAVAGE MD 06/20/19 0915 PATIENT NAME: MARIA ELENA CORBIN CONSULTATION DATE OF : 62 REPORT #: [id number] PHYSICIAN: KETURAH SAVAGE MD PCP: [facility] REPORT IS CONFIDENTIAL AND NOT TO BE RELEASED WITHOUT AUTHORIZATION
[2019-06-22] MEDS ORDERED: VANCOMYCIN HCL125 MG PO (12:32)
[2019-06-22] MEDS ORDERED: FENTANYL1 EAC2 TD (12:33)
[2019-06-22] MEDS ORDERED: REGLAN10 MG PO (12:35)
== END 2019-06-23 16:21 | disposition home or self-care (01) | DRG 371 ==
LOC: ED 11:15 → MS 11:16
PROVIDERS: ADMIT Internal Medicine
DX: A04.72 Enterocolitis due to Clostridium difficile, not specified as recurrent (principal); E43 Unspecified severe protein-calorie malnutrition; C22.1 Intrahepatic bile duct carcinoma; C78.7 Secondary malignant neoplasm of liver and intrahepatic bile duct; G89.3 Neoplasm related pain (acute) (chronic); E83.39 Other disorders of phosphorus metabolism; E87.6 Hypokalemia; K31.84 Gastroparesis; E83.42 Hypomagnesemia; Z87.891 Personal history of nicotine dependence; Z88.2 Allergy status to sulfonamides; Z88.1 Allergy status to other antibiotic agents; Z93.1 Gastrostomy status; Z79.899 Other long term (current) drug therapy; Z79.891 Long term (current) use of opiate analgesic; Z68.22 Body mass index [BMI] 22.0-22.9, adult
CPT/HCPCS: 36415; 74177; 74250; 80048; 80051; 80053; 80061; 81001; 83690; 83735; 84100; 84132; 84134; 84295; 84478; 85025; 85610; 85730; 87045; 87046; 87077; 87177; 87205; 87209; 87324; 87449; 87493; 94760; 96361; 96366; 96372; 96375; 96376; 99285-25; G0378; J1100; J1170; J1650; J2060; J2405; J2550; J2765; J2997; J3475; J3480; J7030; J7060; J7070; J7121; Q9967; U0002

== ENCOUNTER 2019-07-09 01:55 | Emergency (ER) | payer BC, OTHER ==
[~2019-07-09] VITALS: Ht 162.6 cm; Wt 60.3 kg
--- OUTSIDE RECORDS SUMMARY | ~2019-07-09 | XMS | Encounter Summary ---
Demographics + + + | Address | [address] | | | [place] [address] | + + + | Home Phone | | + + + | Preferred Language | Unknown | + + + | Marital Status | | + + + | Jew Affiliation | Unknown | + + + | Race | Unknown | + + + | Ethnic Group | Unknown | + + + Author + + + | Author | [facility] | | | and [place]ardo[place] | + + + | Organization | [facility] | | | and [place]ardo[place] | + + + | Address | Unknown | + + + | Phone | Unavailable | + + + Support + + + + + | Name | Relationship | Address | Phone | + + + + + | Poncho Oquendo | ECON | [address] | | | | | [facility], [place] | | | | | [address] | | + + + + + | Marta Upton | ECON | [place], [place] | | | | | [address] | | + + + + + Care Team Providers + +------+ + | Care Open Die Inspector Name | Role | Phone | + +------+ + PCP | Unavailable | + +------+ + Encounter Details +--------+ + + + + | Date | Type | Department | Care Team | Description | +--------+ + + + + | 08/07/ | Hospital | [facility] | | | | 2012 - | Encounter | [facility] | | | [facility] | [facility] [address] | | | | 08/13/ | | [place] | | | | 2012 | | [id number] | | | | | | [phone] | | | +--------+ + + + [...] + + documented as of this encounter Medications at Time of Discharge + + + +---------+ + + | Medication | Sig | Dispensed | Refills | Start | End Date | | | | | | Date | | + + + +---------+ + + | fexofenadine | Take 180 mg by mouth | | 0 | 10/28/19 | | | (WILLIE) 180 mg | Daily as needed. | | | 12 | 4 | | tablet | | | | | | + + + +---------+ + + | fluocinonide | apply to affected | | 0 | 10/28/19 | | | (LIDEX) 0.05% cream | area two times daily | | | 12 | 4 | | | for rash | | | | | + + + +---------+ + + | fluticasone | Inhale 2 sprays in | | 0 | 10/28/19 | | | (FLONASE) 50 | each nostril once | | | 12 | 4 | | mcg/nasal spray | daily | | | | | + + + +---------+ + + | ibuprofen | Take 200 mg by mouth | | 0 | 10/28/19 | | | (ADVIL,MOTRIN) 800 | every 6 hours as | | | 12 | 5 | | MG tablet | needed. | | | | | + + + +---------+ + + | ibuprofen | three times daily | | 0 | 10/28/19 | | | (ADVIL,MOTRIN) 800 | with food | | | 12 | 4 | | MG tablet | | | | | | + + + +---------+ + + | | Take 5-325 mg by | | 0 | 10/28/19 | | | oxyCODONE-acetaminop | mouth Daily as | | | 12 | 4 | | hen (PERCOCET) 5-325 | needed. | | | | | | mg per tablet | | | | | | + + + +---------+ + + | pseudoePHEDrine | Take 60 mg by mouth | | 0 | 10/28/19 | | | (SUDAFED) 60 MG | Twice daily as | | | 12 | 4 | | tablet | needed. | | | | | + + + +---------+ + + documented as of this encounter Plan of Treatment +--------+---------+ + + + | Date | Type | Specialty | Care Team | Description | +--------+---------+ + + + | 09/17/ | Office | Urology | Pedro Green, | | | 2019 | Visit | | DO [address] | | | | | | [place] [address] | | | | | | [phone] | | | | | | | | +--------+---------+ + + + documented as of this encounter Procedures + +--------+ + + + | Procedure Name | Priori | Date/Time | Associated Diagnosis | Comments | | | ty | | | | + +--------+ + + + | CA 19-9, QUANT | Routin | 08/07/2012 | | Results for this | | | e | 10:53 AM | | procedure are in the | | | | PDT | | results section. | + +--------+ + + + | CBC WITH | Routin | 08/07/2012 | | Results for this | | DIFFERENTIAL | e | 10:53 AM | | procedure are in the | | | | PDT | | results section. | + +--------+ + + + | LACTATE | Routin | 08/07/2012 | | Results for this | | DEHYDROGENASE | e | 10:53 AM | | procedure are in the | | | | PDT | | results section. | + +--------+ + + + | COMPREHENSIVE | Routin | 08/07/2012 | | Results for this | | METABOLIC PANEL | e | 10:53 AM | | procedure are in the | | | | PDT | | results section. | + +--------+ + + + | CBC WITH | Routin | 08/03/2012 | | Results for this | | DIFFERENTIAL | e | 2:23 PM | | procedure are in the | | | | PDT | | results section. | + +--------+ + + + | LACTATE | Routin | 08/03/2012 | | Results for this | | DEHYDROGENASE | e | 2:23 PM | | procedure are in the | | | | PDT | | results section. | + +--------+ + + + | COMPREHENSIVE | Routin | 08/03/2012 | | Results for this | | METABOLIC PANEL | e | 2:23 PM | | procedure are in the | | | | PDT | | results section. | + +--------+ + + + | CBC WITH | Routin | 07/27/2012 | | Results for this | | DIFFERENTIAL | e | 2:45 PM | | procedure are in the | | | | PDT | | results section. | + +--------+ + + + | LACTATE | Routin | 07/27/2012 | | Results for this | | DEHYDROGENASE | e | 2:45 PM | | procedure are in the | | | | PDT | | results section. | + +--------+ + + + | COMPREHENSIVE | Routin | 07/27/2012 | | Results for this | | METABOLIC PANEL | e | 2:45 PM | | procedure are in the | | | | PDT | | results section. | + +--------+ + + + | CBC WITH | Routin | 07/17/2012 | | Results for this | | DIFFERENTIAL | e | 2:21 PM | | procedure are in the | | | | PDT | | results section. | + +--------+ + + + | LACTATE | Routin | 07/17/2012 | | Results for this | | DEHYDROGENASE | e | 2:21 PM | | procedure are in the | | | | PDT | | results section. | + +--------+ + + + | COMPREHENSIVE | Routin | 07/17/2012 | | Results for this | | METABOLIC PANEL | e | 2:21 PM | | procedure are in the | | | | PDT | | results section. | + +--------+ + + + documented in this encounter Results CBC with Differential (08/07/2012 10:53 AM PDT) + + + + + + | Component | Value | Ref Range | Performed | Pathologist | | | | | At | Signature | + + + + + + | MANUAL | NO | | [facility] | [facility] | | | [facility] ? | | | [facility] | | | | | | [facility] - | | | | | | LABORATORY | | + + + + + + | WBC | 6.5 (A) | 4.0 - 11.0 K/uL | [facility] | | | | | | [facility] | | | | | | [facility] | | | | | | C[facility] - | | | | | | LABORATORY | | + + + + + + | RBC | 3.93 | 3.70 - 5.20 | [facility] | | | | | M/uL | [facility] | | | | | | MED[facility] | | | | | | CENTER - | | | | | | LABORATORY | | + + + + + + | Hemoglobin | 11.7 | 11.5 - 16.0 | [facility] | | | | | gm/dL | [facility] | | | | | | [facility] | | | | | | CENTER - | | | | | | LABORATORY | | + + + + + + | Hematocrit | 35.9 | 34.0 - 47.0 % | [facility] | | | | | | [facility] | | | | | | [facility] | | | | | | CENTER - | | | | | | LABORATORY | | + + + + + + | MCV | 91.5 | 83.0 - 101.0 fL | [facility] | | | | | | [facility] | | | | | | [facility] | | | | | | CENTER - | | | | | | LABORATORY | | + + + + + + | MCH | 29.7 | 28.0 - 35.0 pg | [facility] | | | | | | [facility] | | | | | | [facility] | | | | | | CENTER - | | | | | | LABORATORY | | + + + + + + | MCHC | 32.5 | 32.0 - 36.0 | [facility] | | | | | g/dL | [facility] | | | | | | [facility] | | | | | | CENTER - | | | | | | LABORATORY | | + + + + + + | RDW-CV | 15.8 (H) | <15.0 % | [facility] | | | | | | [facility] | | | | | | [facility]ICAL | | | | | | CENTER - | | | | | | LABORATORY | | + + + + + + | Platelet | 152 | 140 - 440 K/uL | [facility] | | | Count | | | [facility] | | | | | | MEDICAL | | | | | | CENTER - | | | | | | LABORATORY | | + + + + + + | % | 81.6 (H) | 45 - 75 % | [facility] | | | Neutrophils | | | [facility] | | | | | | MEDICAL | | | | | | CENTER - | | | | | | LABORATORY | | + + + + + + | % | 12.6 (L) | 20 - 45 % | [facility] | | | Lymphocytes | | | [facility] | | | | | | MEDICAL | | | | | | CENTER - | | | | | | LABORATORY | | + + + + + + | % Monocytes | 0.6 (L) | 4 - 12 % | [facility] | | | | | | [facility] | | | | | | MEDICAL | | | | | | CENTER - | | | | | | LABORATORY | | + + + + + + | % | 4.7 | 0 - 5 % | [facility] | | | Eosinophils | | | [facility] | | | | | | MEDICAL | | | | | | CENTER - | | | | | | LABORATORY | | + + + + + + | % Basophils | 0.5 | 0 - 1 % | [facility] | | | | | | [facility] | | | | | | [facility]ICAL | | | | | | CENTER - | | | | | | LABORATORY | | + + + + + + | Absolute | 5.3 (A) | 1.5 - 6.6 K/uL | [facility] | | | Neutrophils | | | [facility] | | | | | | MEDICAL | | | | | | CENTER - | | | | | | LABORATORY | | + + + + + + | Absolute | 0.8 | 0.6 - 3.2 K/uL | [facility] | | | Lymphocytes | | | [facility] | | | | | | MEDICAL | | | | | | CENTER - | | | | | | LABORATORY | | + + + + + + | Absolute | 0.0 | 0.0 - 1.0 K/uL | [facility] | | | Monocytes | | | [facility] | | | | | | MEDICAL | | | | | | CENTER - | | | | | | LABORATORY | | + + + + + + | Absolute | 0.3 | 0.0 - 0.4 K/uL | [facility] | | | Eosinophils | | | [facility] | | | | | | MEDICAL | | | | | | CENTER - | | | | | | LABORATORY | | + + + + + + | Absolute | 0.0 | 0.0 - 0.1 K/uL | [facility] | | | Basophils | | | [facility] | | | | | | MEDICAL | | | | | | CENTER - | | | | | | LABORATORY | | + + + + + + + + | Specimen | + + | | + + + + + + + | Performing | Address | City/State/Zipcode | Phone Number | | Organization | | | | + + + + + | [facility] | [address] | [place], [place] | [phone] | | [facility] | | [address] | | | - LABORATORY | | | | + + + + + | [facility] | [address] | [place] | | | [facility] | | [address], [facility] | | | - LABORATORY | | | | + + + + + CA 19-9, Quant (08/07/2012 10:53 AM PDT) + + + + + + | Component | Value | Ref Range | Performed | Pathologist | | | | | At | Signature | + + + + + + | CA 19 9 | 11Comment: The Siemens | 0 - 37 U/mL | [facility] | | | | (formerly [employer] | | [facility] | | | | Centaur immunoassay | | MEDICAL | | | | method is used. | | CENTER - | | | | Results obtained with | | LABORATORY | | | | different assay | | | | | | methods or kits cannot | | | | | | be used | | | | | | interchangeably. Testing | | | | | | Performed: [facility], [address] | | | | | [address], [place] | | | | | | [address] [place]: | | | | | | [id number] | | | | + + + + + + + + | Specimen | + + | | + + + + + + + | Performing | Address | City/State/Zipcode | Phone Number | | Organization | | | | + + + + + | [facility] | [address] | [place], [place] | [phone] | | [facility] | | [address] | | | - LABORATORY | | | | + + + + + | [facility] | [address] | [place] | | | [facility] | | [id number] [place] [address] | | | - LABORATORY | | | | + + + + + Comprehensive Metabolic Panel (08/07/2012 10:53 AM PDT) + + + + + + | Component | Value | Ref Range | Performed | Pathologist | | | | | At | Signature | + + + + + + | Glucose | 108 | 70 - 109 mg/dL | [facility] | | | | | | [facility] | | | | | | MEDICAL | | | | | | CENTER - | | | | | | LABORATORY | | + + + + + + | Calcium | 8.6 | 8.3 - 10.5 | [facility] | | | | | mg/dL | [facility] | | | | | | MEDICAL | | | | | | CENTER - | | | | | | LABORATORY | | + + + + + + | Alkaline | 92 | 40 - 110 IU/L | [facility] | | | Phosphatase | | | [facility] | | | | | | MEDICAL | | | | | | CENTER - | | | | | | LABORATORY | | + + + + + + | AST | 63 (H) | 10 - 42 IU/L | [facility] | | | | | | [facility] | | | | | | MEDICAL | | | | | | CENTER - | | | | | | LABORATORY | | + + + + + + | ALT | 63 (H) | 6 - 45 IU/L | [facility] | | | | | | [facility] | | | | | | MEDICAL | | | | | | CENTER - | | | | | | LABORATORY | | + + + + + + | Bilirubin | 0.9 | 0.2 - 1.0 mg/dL | [facility] | | | Total | | | [facility] | | | | | | MEDICAL | | | | | | CENTER - | | | | | | LABORATORY | | + + + + + + | Total | 6.3 | 6.0 - 7.8 gm/dL | [facility] | | | Protein | | | [facility] | | | | | | MEDICAL | | | | | | CENTER - | | | | | | LABORATORY | | + + + + + + | Albumin | 3.3 | 3.2 - 5.0 gm/dL | [facility] | | | | | | [facility] | | | | | | MEDICAL | | | | | | CENTER - | | | | | | LABORATORY | | + + + + + + | BUN | 9 | 7 - 18 mg/dL | [facility] | | | | | | [facility] | | | | | | MEDICAL | | | | | | CENTER - | | | | | | LABORATORY | | + + + + + + | Creatinine | 0.72 | 0.60 - 1.30 | [facility] | | | | | mg/dL | [facility] | | | | | | MEDICAL | | | | | | CENTER - | | | | | | LABORATORY | | + + + + + + | Estimated | >60Comment: For | >60 mL/min/A | [facility] | | | GFR | -Americans, | | [facility] | | | | please multiply the | | MEDICAL | | | | result by 1.210 | | CENTER - | | | | This is an estimated | | LABORATORY | | | | GFR and is based on a | | | | | | standard adult | | | | | | body mass (A=1.73m2) and | | | | | | serum creatinine | | | | + + + + + + | BUN/Creatin | 12.5 | 12 - 20 | [facility] | | | ine Ratio | | | [facility] | | | | | | MEDICAL | | | | | | CENTER - | | | | | | LABORATORY | | + + + + + + | Na | 135 (L) | 136 - 149 mEq/L | [facility] | | | | | | [facility] | | | | | | MEDICAL | | | | | | CENTER - | | | | | | LABORATORY | | + + + + + + | K | 4.0 | 3.5 - 5.1 mEq/l | [facility] | | | | | | [facility] | | | | | | MEDICAL | | | | | | CENTER - | | | | | | LABORATORY | | + + + + + + | Cl | 101 | 98 - 109 mEq/l | [facility] | | | | | | [facility] | | | | | | MEDICAL | | | | | | CENTER - | | | | | | LABORATORY | | + + + + + + | CO2 | 26 | 24 - 31 mEq/L | [facility] | | | | | | [facility] | | | | | | MEDICAL | | | | | | CENTER - | | | | | | LABORATORY | | + + + + + + | Anion Gap | 12.0 | 6.0 - 17.0 | [facility] | | | | | | [facility] | | | | | | MEDICAL | | | | | | CENTER - | | | | | | LABORATORY | | + + + + + + + + | Specimen | + + | | + + + + + + + | Performing | Address | City/State[facility] | Phone Number | | Organization | | | | + + + + + | [facility] | [address] | [place] | [phone] | | [facility] | | [address] | | | - LABORATORY | | | | + + + + + | [facility] | [address] | [place] | | | [facility] | | [address], [facility] | | | - LABORATORY | | | | + + + + + Lactate Dehydrogenase (08/07/2012 10:53 AM PDT) + +---------+ + + + | Component | Value | Ref Range | Performed | Pathologist | | | | | At | Signature | + +---------+ + + + | LDH TOTAL | 206 (H) | 91 - 180 IU/L | [facility] | | | | | [facility] | | | | | | [facility]ICAL | | | | | | CENTER - | | | | | | LABORATORY | | + +---------+ + + + + + | Specimen | + + | | + + + + + + + | Performing | Address | City/State/Zipcode | Phone Number | | Organization | | | | + + + + + | [facility] | [address] | [place] | [phone] | | [facility] | | [address] | | | - LABORATORY | | | | + + + + + | [facility] | [address] | [place], [place] | | | [facility] | | [address] | | | - LABORATORY | | | | + + + + + CBC with Differential (08/03/2012 2:23 PM PDT) + + + + + + | Component | Value | Ref Range | Performed | Pathologist | | | | | At | Signature | + + + + + + | MANUAL | NO | | [facility] | | | DIFFERENTIA | | | [facility] | | | L ? | | | MEDICAL | | | | | | CENTER - | | | | | | LABORATORY | | + + + + + + | WBC | 3.0 (L) | 4.0 - 11.0 K/uL | [facility] | | | | | | [facility] | | | | | | MEDICAL | | | | | | CENTER - | | | | | | LABORATORY | | + + + + + + | RBC | 4.19 | 3.70 - 5.20 | [facility] | | | | | M/uL | [facility] | | | | | | MEDICAL | | | | | | CENTER - | | | | | | LABORATORY | | + + + + + + | Hemoglobin | 12.5 | 11.5 - 16.0 | [facility] | | | | | gm/dL | [facility] | | | | | | MEDICAL | | | | | | CENTER - | | | | | | LABORATORY | | + + + + + + | Hematocrit | 38.3 | 34.0 - 47.0 % | [facility] | | | | | | [facility] | | | | | | MEDICAL | | | | | | CENTER - | | | | | | LABORATORY | | + + + + + + | MCV | 91.3 | 83.0 - 101.0 fL | [facility] | | | | | | [facility] | | | | | | MEDICAL | | | | | | CENTER - | | | | | | LABORATORY | | + + + + + + | MCH | 29.9 | 28.0 - 35.0 pg | [facility] | | | | | | [facility] | | | | | | MEDICAL | | | | | | CENTER - | | | | | | LABORATORY | | + + + + + + | MCHC | 32.8 | 32.0 - 36.0 | [facility] | | | | | g/dL | [facility] | | | | | | MEDICAL | | | | | | CENTER - | | | | | | LABORATORY | | + + + + + + | RDW-CV | 15.5 (H) | <15.0 % | [facility] | | | | | | [facility] | | | | | | MEDICAL | | | | | | CENTER - | | | | | | LABORATORY | | + + + + + + | Platelet | 280 | 140 - 440 K/uL | [facility] | | | Count | | | [facility] | | | | | | MEDICAL | | | | | | CENTER - | | | | | | LABORATORY | | + + + + + + | % | 21.7 (L) | 45 - 75 % | [facility] | | | Neutrophils | | | [facility] | | | | | | MEDICAL | | | | | | CENTER - | | | | | | LABORATORY | | + + + + + + | % | 61.6 (H) | 20 - 45 % | [facility] | | | Lymphocytes | | | [facility] | | | | | | MEDICAL | | | | | | CENTER - | | | | | | LABORATORY | | + + + + + + | % Monocytes | 10.9 | 4 - 12 % | [facility] | | | | | | [facility] | | | | | | MEDICAL | | | | | | CENTER - | | | | | | LABORATORY | | + + + + + + | % | 1.5 | 0 - 5 % | [facility] | | | Eosinophils | | | [facility] | | | | | | MEDICAL | | | | | | CENTER - | | | | | | LABORATORY | | + + + + + + | % Basophils | 4.3 (H) | 0 - 1 % | [facility] | | | | | | [facility] | | | | | | MEDICAL | | | | | | CENTER - | | | | | | LABORATORY | | + + + + + + | Absolute | 0.6 (L) | 1.5 - 6.6 K/uL | [facility] | | | Neutrophils | | | [facility] | | | | | | MEDICAL | | | | | | CENTER - | | | | | | LABORATORY | | + + + + + + | Absolute | 1.8 | 0.6 - 3.2 K/uL | [facility] | | | Lymphocytes | | | [facility] | | | | | | MEDICAL | | | | | | CENTER - | | | | | | LABORATORY | | + + + + + + | Absolute | 0.3 | 0.0 - 1.0 K/uL | [facility] | | | Monocytes | | | [facility] | | | | | | MEDICAL | | | | | | CENTER - | | | | | | LABORATORY | | + + + + + + | Absolute | 0.0 | 0.0 - 0.4 K/uL | [facility] | | | Eosinophils | | | [facility] | | | | | | MEDICAL | | | | | | CENTER - | | | | | | LABORATORY | | + + + + + + | Absolute | 0.1 | 0.0 - 0.1 K/uL | [facility] | | | Basophils | | | [facility] | | | | | | MEDICAL | | | | | | CENTER - | | | | | | LABORATORY | | + + + + + + | SUSPECTED | 1 (H)Comment: PERFORM | | [facility] | | | PROBLEM IS: | SMEAR REVIEW FOR DIFF % | | [facility] | | | | | | MEDICAL | | | | | | CENTER - | | | | | | LABORATORY | | + + + + + + + + | Specimen | + + | | + + + + + + + | Performing | Address | City/State/Zipcode | Phone Number | | Organization | | | | + + + + + | [facility] | [address] | [place], [place] | [phone] | | [facility] | | [address] | | | - LABORATORY | | | | + + + + + | [facility] | [address] | [place], [place] | | | [facility] | | [id number] [place] [address] | | | - LABORATORY | | | | + + + + + Comprehensive Metabolic Panel (08/03/2012 2:23 PM PDT) + + + + + + | Component | Value | Ref Range | Performed | Pathologist | | | | | At | Signature | + + + + + + | Glucose | 98 | 70 - 109 mg/dL | [facility] | | | | | | [facility] | | | | | | MEDICAL | | | | | | CENTER - | | | | | | LABORATORY | | + + + + + + | Calcium | 9.2 | 8.3 - 10.5 | [facility] | | | | | mg/dL | [facility] | | | | | | MEDICAL | | | | | | CENTER - | | | | | | LABORATORY | | + + + + + + | Alkaline | 121 (H) | 40 - 110 IU/L | [facility] | | | Phosphatase | | | [facility] | | | | | | MEDICAL | | | | | | CENTER - | | | | | | LABORATORY | | + + + + + + | AST | 49 (H) | 10 - 42 IU/L | [facility] | | | | | | [facility] | | | | | | MEDICAL | | | | | | CENTER - | | | | | | LABORATORY | | + + + + + + | ALT | 61 (H) | 6 - 45 IU/L | [facility] | | | | | | [facility] | | | | | | MEDICAL | | | | | | CENTER - | | | | | | LABORATORY | | + + + + + + | Bilirubin | 0.7 | 0.2 - 1.0 mg/dL | [facility] | | | Total | | | [facility] | | | | | | MEDICAL | | | | | | CENTER - | | | | | | LABORATORY | | + + + + + + | Total | 6.5 | 6.0 - 7.8 gm/dL | [facility] | | | Protein | | | [facility] | | | | | | MEDICAL | | | | | | CENTER - | | | | | | LABORATORY | | + + + + + + | Albumin | 3.8 | 3.2 - 5.0 gm/dL | [facility] | | | | | | [facility] | | | | | | MEDICAL | | | | | | CENTER - | | | | | | LABORATORY | | + + + + + + | BUN | 6 (L) | 7 - 18 mg/dL | [facility] | | | | | | [facility] | | | | | | MEDICAL | | | | | | CENTER - | | | | | | LABORATORY | | + + + + + + | Creatinine | 0.77 | 0.60 - 1.30 | [facility] | | | | | mg/dL | [facility] | | | | | | MEDICAL | | | | | | CENTER - | | | | | | LABORATORY | | + + + + + + | Estimated | >60Comment: For | >60 mL/min/A | [facility] | | | GFR | -Americans, | | [facility] | | | | please multiply the | | MEDICAL | | | | result by 1.210 | | CENTER - | | | | This is an estimated | | LABORATORY | | | | GFR and is based on a | | | | | | standard adult | | | | | | body mass (A=1.73m2) and | | | | | | serum creatinine | | | | + + + + + + | BUN/Creatin | 7.8 (L) | 12 - 20 | [facility] | | | ine Ratio | | | [facility] | | | | | | [facility] | | | | | | [facility] - | | | | | | LABORATORY | | + + + + + + | Na | 140 | 136 - 149 mEq/L | [facility] | | | [facility] | [facility] | | | | | | [facility] | | | | | | [facility] - | | | | | | LABORATORY | | + + + + + + | K | 3.7 | 3.5 - 5.1 mEq/l | [facility] | | | [facility] | [facility] | | | | | | [facility] | | | | | | [facility] - | | | | | | LABORATORY | | + + + + + + | Cl | 103 | 98 - 109 mEq/l | [facility] | [facility] | | | | | | [facility] | | | | | | [facility] - | | | | | | LABORATORY | | + + + + + + | CO2 | 31 | 24 - 31 mEq/L | [facility] | | | | | | [facility] | | | | | | [facility]ENTER - | | | | | | LABORATORY | | + + + + + + | Anion Gap | 9.7 | 6.0 - 17.0 | [facility] | | | | | | [facility] | | | | | | [facility] | | | | | | [facility] - | | | | | | LABORATORY | | + + + + + + + + | Specimen | + + | | + + + + + + + | Performing | Address | City/State/Zipcode | Phone Number | | Organization | | | | + + + + + | [facility] | [address] | [place] | [phone] | | [facility] | | [address] | | | - LABORATORY | | | | + + + + + | [facility] | [address] | [place] | | | [facility] | | [address], [facility] | | | - LABORATORY | | | | + + + + + Lactate Dehydrogenase (08/03/2012 2:23 PM PDT) + +---------+ + + + | Component | Value | Ref Range | Performed | Pathologist | | | | | At | Signature | + +---------+ + + + | LDH TOTAL | 192 (H) | 91 - 180 IU/L | [facility] | | | | [facility] | | | | | [facility] | | | | | | [facility] - | | | | | | LABORATORY | | + +---------+ + + + + + | Specimen | + + | | + + + + + + + | Performing | Address | City/State/Zipcode | Phone Number | | Organization | | | | + + + + + | [facility] | [address] | [place], [place] | [phone] | | [facility] | | [address] | | | - LABORATORY | | | | + + + + + | [facility] | [address] | [place], [place] | | | [facility] | | [id number] [place] [address] | | | - LABORATORY | | | | + + + + + CBC with Differential (07/27/2012 2:45 PM PDT) + +---------+ + + + | Component | Value | Ref Range | Performed | Pathologist | | | | | At | Signature | + +---------+ + + + | MANUAL | NO | | [facility] | | [facility] | | | L ? | | | [facility]ICAL | | | | | | CENTER - | | | | | | LABORATORY | | + +---------+ + + + | WBC | 5.3 | 4.0 - 11.0 K/uL | [facility] | | | | | | [facility] | | | | | | [facility] | | | | | | CENTER - | | | | | | LABORATORY | | + +---------+ + + + | RBC | 4.50 | 3.70 - 5.20 | [facility] | | | | | M/uL | [facility] | | | | | | MEDICAL | | | | | | CENTER - | | | | | | LABORATORY | | + +---------+ + + + | Hemoglobin | 13.2 | 11.5 - 16.0 | [facility] | | | | | gm/dL | [facility] | | | | | | [facility] | | | | | | CENTER - | | | | | | LABORATORY | | + +---------+ + + + | Hematocrit | 40.8 | 34.0 - 47.0 % | [facility] | | | | | | [facility] | | | | | | [facility] | | | | | | CENTER - | | | | | | LABORATORY | | + +---------+ + + + | MCV | 90.6 | 83.0 - 101.0 fL | [facility] | | | | | | [facility] | | | | | | [facility] | | | | | | CENTER - | | | | | | LABORATORY | | + +---------+ + + + | MCH | 29.2 | 28.0 - 35.0 pg | [facility] | | | | | | [facility] | | | | | | [facility] | | | | | | CENTER - | | | | | | LABORATORY | | + +---------+ + + + | MCHC | 32.3 | 32.0 - 36.0 | [facility] | | | | | g/dL | [facility] | | | | | | MEDICAL | | | | | | CENTER - | | | | | | LABORATORY | | + +---------+ + + + | RDW-CV | 14.1 | <15.0 % | [facility] | | | | | | [facility] | | | | | | MED[facility] | | | | | | CENTER - | | | | | | LABORATORY | | + +---------+ + + + | Platelet | 254 | 140 - 440 K/uL | [facility] | | | Count | | | [facility] | | | | | [facility] | [facility] | [facility] - | | | | | | LABORATORY | | + +---------+ + + + | % | 52.1 | 45 - 75 % | [facility] | | | Neutrophils | | | [facility] | | | | | | [facility] | | | | | | [facility] - | | | | | | LABORATORY | | + +---------+ + + + | % | 30.5 | 20 - 45 % | [facility] | | | Lymphocytes | | | [facility] | | | | | | [facility] | | | | | | [facility]ENTER - | | | | | | LABORATORY | | + +---------+ + + + | % Monocytes | 11.3 | 4 - 12 % | [facility] | | | | | | [facility] | | | | | | [facility] | | | | | | [facility] - | | | | | | LABORATORY | | + +---------+ + + + | % | 5.3 (H) | 0 - 5 % | [facility] | | | Eosinophils | | | [facility] | | | | | | [facility] | | | | | | [facility]ENTER - | | | | | | LABORATORY | | + +---------+ + + + | % Basophils | 0.8 | 0 - 1 % | [facility] | | | | | | [facility] | | | | | | [facility] | | | | | | [facility] - | | | | | | LABORATORY | | + +---------+ + + + | Absolute | 2.8 | 1.5 - 6.6 K/uL | [facility] | | | Neutrophils | | | [facility] | | | | | | [facility] | | | | | | [facility] - | | | | | | LABORATORY | | + +---------+ + + + | Absolute | 1.6 | 0.6 - 3.2 K/uL | [facility] | | | Lymphocytes | | | [facility] | | | | | | [facility] | | | | | | [facility]ENTER - | | | | | | LABORATORY | | + +---------+ + + + | Absolute | 0.6 | 0.0 - 1.0 K/uL | [facility] | | | Monocytes | | | [facility] | | | | | | [facility] | | | | | | CENTER - | | | | | | LABORATORY | | + +---------+ + + + | Absolute | 0.3 | 0.0 - 0.4 K/uL | [facility] | | | Eosinophils | | | [facility] | | | | | | [facility] | | | | | | CENTER - | | | | | | LABORATORY | | + +---------+ + + + | Absolute | 0.0 | 0.0 - 0.1 K/uL | [facility] | | | Basophils | | | [facility] | | | | | | [facility] | | | | | | CENTER - | | | | | | LABORATORY | | + +---------+ + + + + + | Specimen | + + | | + + + + + + + | Performing | Address | City/State/Zipcode | Phone Number | | Organization | | | | + + + + + | [facility] | [address] | [place] | [phone] | | [facility] | | [address] | | | - LABORATORY | | | | + + + + + | [facility] | [address] | [place] | | | [facility] | | [id number] | | | - LABORATORY | | | | + + + + + Comprehensive Metabolic Panel (07/27/2012 2:45 PM PDT) + + + + + + | Component | Value | Ref Range | Performed | Pathologist | | | | | At | Signature | + + + + + + | Glucose | 94 | 70 - 109 mg/dL | [facility] | | | | | | [facility] | | | | | | [facility]ICAL | | | | | | CENTER - | | | | | | LABORATORY | | + + + + + + | Calcium | 8.7 | 8.3 - 10.5 | [facility] | | | | | mg/dL | [facility] | | | | | | MEDICAL | | | | | | CENTER - | | | | | | LABORATORY | | + + + + + + | Alkaline | 129 (H) | 40 - 110 IU/L | [facility] | | | Phosphatase | | | [facility] | | | | | | [facility]ICAL | | | | | | CENTER - | | | | | | LABORATORY | | + + + + + + | AST | 31 | 10 - 42 IU/L | [facility] | | | | | | [facility] | | | | | | [facility] | | | | | | CENTER - | | | | | | LABORATORY | | + + + + + + | ALT | 30 | 6 - 45 IU/L | [facility] | | | | | | [facility] | | | | | | [facility] | | | | | | CENTER - | | | | | | LABORATORY | | + + + + + + | Bilirubin | 0.8 | 0.2 - 1.0 mg/dL | [facility] | | | Total | | | [facility] | | | | | | [facility] | | | | | | CENTER - | | | | | | LABORATORY | | + + + + + + | Total | 6.4 | 6.0 - 7.8 gm/dL | [facility] | | | Protein | | | [facility] | | | | | | [facility]ICAL | | | | | | CENTER - | | | | | | LABORATORY | | + + + + + + | Albumin | 3.7 | 3.2 - 5.0 gm/dL | [facility] | | | | | | [facility] | | | | | | [facility] | | | | | | CENTER - | | | | | | LABORATORY | | + + + + + + | BUN | 10 | 7 - 18 mg/dL | [facility] | | | | | | [facility] | | | | | | [facility] | | | | | | CENTER - | | | | | | LABORATORY | | + + + + + + | Creatinine | 0.68 | 0.60 - 1.30 | [facility] | | | | | mg/dL | [facility] | | | | | | [facility] | | | | | | CENTER - | | | | | | LABORATORY | | + + + + + + | Estimated | >60Comment: For | >60 mL/min/A | [facility] | | | GFR | -Americans, | | [facility] | | | | please multiply the | | MEDICAL | | | | result by 1.210 | | CENTER - | | | | This is an estimated | | LABORATORY | | | | GFR and is based on a | | | | | | standard adult | | | | | | body mass (A=1.73m2) and | | | | | | serum creatinine | | | | + + + + + + | BUN/Creatin | 14.7 | 12 - 20 | [facility] | | | ine Ratio | | | [facility] | | | | | | MEDICAL | | | | | | CENTER - | | | | | | LABORATORY | | + + + + + + | Na | 134 (L) | 136 - 149 mEq/L | [facility] | | | | | | [facility] | | | | | | [facility]ICAL | | | | | | CENTER - | | | | | | LABORATORY | | + + + + + + | K | 3.8 | 3.5 - 5.1 mEq/l | [facility] | | | | | | [facility] | | | | | | MEDICAL | | | | | | CENTER - | | | | | | LABORATORY | | + + + + + + | Cl | 99 | 98 - 109 mEq/l | [facility] | | | | | | [facility] | | | | | | [facility]ICAL | | | | | | CENTER - | | | | | | LABORATORY | | + + + + + + | CO2 | 29 | 24 - 31 mEq/L | [facility] | | | | | | [facility] | | | | | | [facility]ICAL | | | | | | CENTER - | | | | | | LABORATORY | | + + + + + + | Anion Gap | 9.8 | 6.0 - 17.0 | [facility] | | | | | | [facility] | | | | | | [facility]ICAL | | | | | | CENTER - | | | | | | LABORATORY | | + + + + + + + + | Specimen | + + | | + + + + + + + | Performing | Address | City/State/Zipcode | Phone Number | | Organization | | | | + + + + + | [facility] | [address] | [place] | [phone] | | [facility] | | [address] | | | - LABORATORY | | | | + + + + + | [facility] | [address] | [place] | | | [facility] | | [id number] | | | - LABORATORY | | | | + + + + + Lactate Dehydrogenase (07/27/2012 2:45 PM PDT) + +---------+ + + + | Component | Value | Ref Range | Performed | Pathologist | | | | | At | Signature | + +---------+ + + + | LDH TOTAL | 182 (H) | 91 - 180 IU/L | [facility] | | | | | | [facility] | | | | | | [facility] | | | | | | CENTER - | | | | | | LABORATORY | | + +---------+ + + + + + | Specimen | + + | | + + + + + + + | Performing | Address | City/State/Zipcode | Phone Number | | Organization | | | | + + + + + | [facility] | [address] | [place], [place] | [phone] | | [facility] | | [address] | | | - LABORATORY | | | | + + + + + | [facility] | [address] | [place], [place] | | | [facility] | | [id number] [place] [address] | | | - LABORATORY | | | | + + + + + CBC with Differential (07/17/2012 2:21 PM PDT) + + + + + + | Component | Value | Ref Range | Performed | Pathologist | | | | | At | Signature | + + + + + + | MANUAL | NO | | [facility] | | | [facility] | | | [facility] | | | L ? | | | MEDICAL | | | | | | CENTER - | | | | | | LABORATORY | | + + + + + + | WBC | 14.1 (H) | 4.0 - 11.0 K/uL | [facility] | | | | | | [facility] | | | | | | MEDICAL | | | | | | CENTER - | | | | | | LABORATORY | | + + + + + + | RBC | 4.15 | 3.70 - 5.20 | [facility] | | | | | M/uL | [facility] | | | | | | MEDICAL | | | | | | CENTER - | | | | | | LABORATORY | | + + + + + + | Hemoglobin | 12.0 | 11.5 - 16.0 | [facility] | | | | | gm/dL | [facility] | | | | | | MEDICAL | | | | | | CENTER - | | | | | | LABORATORY | | + + + + + + | Hematocrit | 37.0 | 34.0 - 47.0 % | [facility] | | | | | | [facility] | | | | | | MEDICAL | | | | | | CENTER - | | | | | | LABORATORY | | + + + + + + | MCV | 89.2 | 83.0 - 101.0 fL | [facility] | | | | | | [facility] | | | | | | MEDICAL | | | | | | CENTER - | | | | | | LABORATORY | | + + + + + + | MCH | 28.8 | 28.0 - 35.0 pg | [facility] | | | | | | [facility] | | | | | | MEDICAL | | | | | | CENTER - | | | | | | LABORATORY | | + + + + + + | MCHC | 32.3 | 32.0 - 36.0 | [facility] | | | | | g/dL | [facility] | | | | | | MEDICAL | | | | | | CENTER - | | | | | | LABORATORY | | + + + + + + | RDW-CV | 13.4 | <15.0 % | [facility] | | | | | | [facility] | | | | | | MEDICAL | | | | | | CENTER - | | | | | | LABORATORY | | + + + + + + | Platelet | 227 | 140 - 440 K/uL | [facility] | | | Count | | | [facility] | | | | | | MEDICAL | | | | | | CENTER - | | | | | | LABORATORY | | + + + + + + | % | 87.6 (H) | 45 - 75 % | [facility] | | | Neutrophils | | | [facility] | | | | | | MEDICAL | | | | | | CENTER - | | | | | | LABORATORY | | + + + + + + | % | 8.9 (L) | 20 - 45 % | [facility] | | | Lymphocytes | | | [facility] | | | | | | MEDICAL | | | | | | CENTER - | | | | | | LABORATORY | | + + + + + + | % Monocytes | 2.3 (L) | 4 - 12 % | [facility] | | | | | | [facility] | | | | | | MEDICAL | | | | | | CENTER - | | | | | | LABORATORY | | + + + + + + | % | 0.9 | 0 - 5 % | [facility] | | | Eosinophils | | | [facility] | | | | | | MEDICAL | | | | | | CENTER - | | | | | | LABORATORY | | + + + + + + | % Basophils | 0.3 | 0 - 1 % | [facility] | | | | | | [facility] | | | | | | MEDICAL | | | | | | CENTER - | | | | | | LABORATORY | | + + + + + + | Absolute | 12.3 (H) | 1.5 - 6.6 K/uL | [facility] | | | Neutrophils | | | [facility] | | | | | | MEDICAL | | | | | | CENTER - | | | | | | LABORATORY | | + + + + + + | Absolute | 1.3 | 0.6 - 3.2 K/uL | [facility] | | | Lymphocytes | | | [facility] | | | | | | MEDICAL | | | | | | CENTER - | | | | | | LABORATORY | | + + + + + + | Absolute | 0.3 | 0.0 - 1.0 K/uL | [facility] | | | Monocytes | | | [facility] | | | | | | MEDICAL | | | | | | CENTER - | | | | | | LABORATORY | | + + + + + + | Absolute | 0.1 | 0.0 - 0.4 K/uL | [facility] | | | Eosinophils | | | [facility] | | | | | | MEDICAL | | | | | | CENTER - | | | | | | LABORATORY | | + + + + + + | Absolute | 0.0 | 0.0 - 0.1 K/uL | [facility] | | | Basophils | | | [facility] | | | | | | MEDICAL | | | | | | CENTER - | | | | | | LABORATORY | | + + + + + + | SUSPECTED | 1 (H) | | [facility] | | | PROBLEM IS: | Comment: | | [facility] | | | | Left Shift | | MEDICAL | | | | Imm Grans | | CENTER - | | | | | | LABORATORY | | + + + + + + + + | Specimen | + + | | + + + + + + + | Performing | Address | City/State/Zipcode | Phone Number | | Organization | | | | + + + + + | [facility] | [address] | [place], [place] | [phone] | | [facility] | | [address] | | | - LABORATORY | | | | + + + + + | [facility] | [address] | [place], [place] | | | [facility] | | [address], [facility] | | | - LABORATORY | | | | + + + + + Comprehensive Metabolic Panel (07/17/2012 2:21 PM PDT) + + + + + + | Component | Value | Ref Range | Performed | Pathologist | | | | | At | Signature | + + + + + + | Glucose | 142 (H) | 70 - 109 mg/dL | [facility] | | | | | | [facility] | | | | | | MEDICAL | | | | | | CENTER - | | | | | | LABORATORY | | + + + + + + | Calcium | 8.8 | 8.3 - 10.5 | [facility] | | | | | mg/dL | [facility] | | | | | | MEDICAL | | | | | | CENTER - | | | | | | LABORATORY | | + + + + + + | Alkaline | 132 (H) | 40 - 110 IU/L | [facility] | | | Phosphatase | | | [facility] | | | | | | MEDICAL | | | | | | CENTER - | | | | | | LABORATORY | | + + + + + + | AST | 46 (H) | 10 - 42 IU/L | [facility] | | | | | | [facility] | | | | | | MEDICAL | | | | | | CENTER - | | | | | | LABORATORY | | + + + + + + | ALT | 71 (H) | 6 - 45 IU/L | [facility] | | | | | | [facility] | | | | | | MEDICAL | | | | | | CENTER - | | | | | | LABORATORY | | + + + + + + | Bilirubin | 0.8 | 0.2 - 1.0 mg/dL | [facility] | | | Total | | | [facility] | | | | | | MEDICAL | | | | | | CENTER - | | | | | | LABORATORY | | + + + + + + | Total | 6.9 | 6.0 - 7.8 gm/dL | [facility] | | | Protein | | | [facility] | | | | | | MEDICAL | | | | | | CENTER - | | | | | | LABORATORY | | + + + + + + | Albumin | 3.5 | 3.2 - 5.0 gm/dL | [facility] | | | | | | [facility] | | | | | | MEDICAL | | | | | | CENTER - | | | | | | LABORATORY | | + + + + + + | BUN | 8 | 7 - 18 mg/dL | [facility] | | | | | | [facility] | | | | | | MEDICAL | | | | | | CENTER - | | | | | | LABORATORY | | + + + + + + | Creatinine | 0.86 | 0.60 - 1.30 | [facility] | | | | | mg/dL | [facility] | | | | | | MEDICAL | | | | | | CENTER - | | | | | | LABORATORY | | + + + + + + | Estimated | >60Comment: For | >60 mL/min/A | [facility] | | | GFR | -Americans, | | [facility] | | | | please multiply the | | MEDICAL | | | | result by 1.210 | | CENTER - | | | | This is an estimated | | LABORATORY | | | | GFR and is based on a | | | | | | standard adult | | | | | | body mass (A=1.73m2) and | | | | | | serum creatinine | | | | + + + + + + | BUN/Creatin | 9.3 (L) | 12 - 20 | [facility] | | | ine Ratio | | | [facility] | | | | | | MEDICAL | | | | | | CENTER - | | | | | | LABORATORY | | + + + + + + | Na | 136 | 136 - 149 mEq/L | [facility] | | | | | | [facility] | | | | | | MEDICAL | | | | | | CENTER - | | | | | | LABORATORY | | + + + + + + | K | 3.4 (L) | 3.5 - 5.1 mEq/l | [facility] | | | | | | [facility] | | | | | | MEDICAL | | | | | | CENTER - | | | | | | LABORATORY | | + + + + + + | Cl | 98 | 98 - 109 mEq/l | [facility] | | | | | | [facility] | | | | | | MEDICAL | | | | | | CENTER - | | | | | | LABORATORY | | + + + + + + | CO2 | 27 | 24 - 31 mEq/L | [facility] | | | | | | [facility] | | | | | | MEDICAL | | | | | | CENTER - | | | | | | LABORATORY | | + + + + + + | Anion Gap | 14.4 | 6.0 - 17.0 | [facility] | | | | | | [facility] | | | | | | MEDICAL | | | | | | CENTER - | | | | | | LABORATORY | | + + + + + + + + | Specimen | + + | | + + + + + + + | Performing | Address | City/State/Zipcode | Phone Number | | Organization | | | | + + + + + | [facility] | [address] | [place] | [phone] | | [facility] | | [address] | | | - LABORATORY | | | | + + + + + | [facility] | [address] | [place] | | | [facility] | | [address] | | | - LABORATORY | | | | + + + + + Lactate Dehydrogenase (07/17/2012 2:21 PM PDT) + +---------+ + + + | Component | Value | Ref Range | Performed | Pathologist | | | | | At | Signature | + +---------+ + + + | LDH TOTAL | 257 (H) | 91 - 180 IU/L | [facility] | | | | | | [facility] | | | | | | MEDICAL | | | | | | CENTER - | | | | | | LABORATORY | | + +---------+ + + + + + | Specimen | + + | | + + + + + + + | Performing | Address | City/State/Zipcode | Phone Number | | Organization | | | | + + + + + | [facility] | [address] | [place] | [phone] | | [facility] | | [address] | | | - LABORATORY | | | | + + + + + | [facility] | [address] | [place], [place] | | | [facility] | | [address] [place] [address] | | | - LABORATORY | | | | + + + + + documented in this encounter Visit Diagnoses Not on filedocumented in this encounter"
--- OUTSIDE RECORDS SUMMARY | ~2019-07-09 | XMS | Encounter Summary ---
Demographics + + + | Address | [address] | | | [place] [address] | + + + | Home Phone | | + + + | Preferred Language | Unknown | + + + | Marital Status | | + + + | Worship Affiliation | Unknown | + + + | Race | Unknown | + + + | Ethnic Group | Unknown | + + + Author + + + | Author | [facility] | | | and [facility] | + + + | Organization | [facility] | | | and [facility] | + + + | Address | Unknown | + + + | Phone | Unavailable | + + + Support + + + + + | Name | Relationship | Address | Phone | + + + + + | Poncho Oquendo | ECON | [address] | | | | | [facility], [place] | | | | | [address] | | + + + + + | Marta Upton | ECON | [place], [place] | | | | | [address] | | + + + + + Care Team Providers + +------+ + | Care Slinger Sequins Name | Role | Phone | + +------+ + PCP | Unavailable | + +------+ + Encounter Details +--------+ + + + + | Date | Type | Department | Care Team | Description | +--------+ + + + + | 10/27/ | Abstract | [place] [facility] | [facility] | | | 2011 | | Conversion Location | SR | | | | | [address] [facility] | | | | | | [place], [place] | | | | | | [address] | | | | | | [phone] | | | +--------+ + + + [...] + + documented as of this encounter Last Filed Vital Signs + + + + + | Vital Sign | Reading | Time Taken | Comments | + + + + + | Blood Pressure | 132/84 | 02/04/2011 12:00 AM | | | | | PST | | + + + + + | Pulse | - | - | | + + + + + | Temperature | - | - | | + + + + + | Respiratory Rate | - | - | | + + + + + | Oxygen Saturation | - | - | | + + + + + | Inhaled Oxygen | - | - | | | Concentration | | | | + + + + + | Weight | 83 kg (183 lb) | 03/12/2011 12:00 AM | | | | | PST | | + + + + + | Height | 160 cm (5' 3") | 02/04/2011 12:00 AM | | | | | PST | | + + + + + | Body Mass Index | 32.42 | 02/04/2011 12:00 AM | | | | | PST | | + + + + + documented in this encounter Plan of Treatment +--------+---------+ + + + | Date | Type | Specialty | Care Team | Description | +--------+---------+ + + + | 09/17/ | Office | Urology | Pedro Green, | | | 2019 | Visit | | DO [address] | | | | | | [place] [address] | | | | | | [phone] | | | | | | | | +--------+---------+ + + + documented as of this encounter Procedures + +--------+ + + + | Procedure Name | Priori | Date/Time | Associated Diagnosis | Comments | | | ty | | | | + +--------+ + + + | PAP SMEAR | Routin | 05/05/2010 | | Results for this | | | e | 12:00 AM | | procedure are in the | | | | PDT | | results section. | + +--------+ + + + documented in this encounter Results Pap Smear (05/05/2010 12:00 AM PDT) + + | Specimen | + + | | + + + + + | Narrative | Performed At | + + + | | | + + + documented in this encounter Visit Diagnoses Not on filedocumented in this encounter
--- OUTSIDE RECORDS SUMMARY | ~2019-07-09 | XMS | Clinical Summary ---
Demographics + + + | Address | [address] | | | [place] [address] | + + + | Home Phone | | + + + | Preferred Language | Unknown | + + + | Marital Status | Single | + + + | Pentecostalism Affiliation | NON | + + + [...] Team Providers + +------+ + | Care Computer Help Desk Representative Name | Role | Phone | + +------+ + | Valeriy Carmona MD | PCP | | + +------+ + Source Comments GWEN is fully live on both EpicCare Ambulatory and EpicCare InPatient.[facility] Allergies + + + + + + | Active Allergy | Reactions | Severity | Noted | Comments | | | | | Date | | + + + + + + | Sulfacetamide Sodium | Hives | | 05/22/19 | | | | | | 15 | | + + + + + + Medications + + + +---------+------+------+-------+ | Medication | Sig | Dispensed | Refills | Star | End | Statu | | | | | | t | Date | s | | | | | | Date | | | + + + +---------+------+------+-------+ | MULTIVIT | Take 1 tablet by | | 0 | | | Activ | | &MINERALS/FERROUS | mouth once daily. | | | | | e | | FUM (MULTI VITAMIN | | | | | | | | ORAL) | | | | | | | + + + +---------+------+------+-------+ | LACTOBACILLUS | Take 1 capsule by | | 0 | | | Activ | | ACIDOPHILUS | mouth once daily. | | | | | e | | (PROBIOTIC ORAL) | | | | | | | + + + +---------+------+------+-------+ | ibuprofen 600 mg | Take 1 tablet by | 80 | 2 | 04/2 | | Activ | | oral tablet | mouth every six | tablet | | 6/20 | | e | | | hours as needed. | | | 15 | | | + + + +---------+------+------+-------+ | lidocaine 5 %(700 | Apply 1 [...] | | | | + + + +---------+------+------+-------+ | docusate sodium | Take 1 capsule by | 60 | 2 | 05/1 | | Activ | | (COLACE) 100 mg oral | mouth two times | capsule | | 6/20 | | e | | capsule | daily. | | | 15 | | | + + + +---------+------+------+-------+ | polyethylene | Take 17 g by mouth | 119 g | 3 | 06/0 | | Activ | | glycol (MIRALAX) 17 | once daily. | | | 9/20 | | e | | gram/dose oral | | | | 15 | | | | powder | | | | | | | + + + +---------+------+------+-------+ | oxyCODONE, | Take 1 tablet by | 30 | 0 | 06/0 | | Activ | | immediate release, 5 | mouth every six | tablet | | 9/20 | | e | | mg oral tablet | hours as needed. | | | 15 | | | + + + +---------+------+------+-------+ | LORazepam 1 mg | Take 1.5 mg by | | 0 | 09/1 | | Activ | | oral tablet | mouth. | | | 4/20 | | e | | | | | | 18 | | | + + + +---------+------+------+-------+ | fentaNYL 100 | Apply 1 patch to | | 0 | 11/1 | | Activ | | mcg/hr transdermal | skin every | | | 2/20 | | e | | patch | seventy-two hours. | | | 18 | | | | | Please remove old | | | | | | | | patch prior to | | | | | | | | placing a new one. | | | | | | + + + +---------+------+------+-------+ | HYDROmorphone 1 | Take by mouth every | | 0 | | | Activ | | mg/mL oral | three hours as | | | | | e | | liquidIndications: | needed. Indications: | | | | | | | unknown | unknown | | | | | | + + + +---------+------+------+-------+ | ondansetron ODT 4 | Dissolve 4 mg on | | 0 | | | Activ | | mg oral | tongue and swallow | | | | | e | | tablet,disintegratin | every twelve hours | | | | | | | gIndications: | as needed. | | | | | | | unknown home dose | Indications: unknown | | | | | | | | home dose | | | | | | + + + +---------+------+------+-------+ | ciprofloxacin HCl | Take 1 tablet by | 13 | 0 | 11/1 | | Activ | | (CIPRO) 500 mg oral | mouth every twelve | tablet | | 3/20 | | e | | tabletIndications: | hours. Indications: | | | 18 | | | | port infection | port infection | | | | | | + + + +---------+------+------+-------+ | naloxone 4 | Instill 1 spray into | 2 each | 0 | 11/ | | Activ | | mg/actuation nasal | nose as needed for | | | 320 | | e | | spray,non-aerosol | suspected opioid | | | 18 | | | | | overdose. Repeat [...] | response. | | | | | | + + + +---------+------+------+-------+ Active Problems + + + | Problem | Noted Date | + + + | CRBSI (catheter-related bloodstream infection) | 12/27/2017 | + + + | Moderate protein-calorie malnutrition | 12/26/2017 | + + + | Chronic use of opiate drugs therapeutic purposes | 12/24/2017 | + + + | Hx of small bowel obstruction | 12/24/2017 | + + + | Gastrostomy tube in place | 12/24/2017 | + + + | Bacteremia due to Klebsiella pneumoniae | 12/24/2017 | + + + | Insomnia | 12/24/2017 | + + + | JULY (acute kidney injury) | 12/24/2017 | + + + | Pelvic mass | 05/21/2014 | + + + | Cholangiocarcinoma | 04/27/2012 | + + + + + | Cancer Staging: Clinical: Stage IIIB (T2, N1, M0) - Signed by | | Elva Grey Md on 05/17/2012Pathologic: Stage IIIB (T2, N1, cM0) - | | Unsigned | + + | Overview: -Diagnosed 2012. Followed by Dr. Ragland at . | | [facility] in [place]. -04/26/2012: R0 Resection. | | -05/31/2012-09/03/2012 Chemotherapy: | | Xeloda/gemictabine x4 cycles. -10/04/2012: XRT with | | Xeloda -06/07/2014: relapse s/p complete resection. | | -07/29/2014-11/29/2014 Chemotherapy: | | Cisplatin/Gemcitabine -03/15/2016: Relapse | | -04/12/2016-08/09/2016 Chemotherapy: Cisplatin/Gemcitabine x6 | | cycles -02/25/2017-04/06/2017 Immunotherapy: | | Pembolizumab x4. -05/20/2017 Palliative Chemotherapy: | | Cisplatin/Gemcitabine Q3 weeks. | + + + + + | Perforation of nasal septum | 06/03/2008 | + + + Resolved Problems + + + + | Problem | Noted | Resolved | | | Date | Date | + + + + | Septic shock | 12/25/19 | | | | 18 | 8 | + + + + | Sepsis | 12/24/19 | | | | 18 | 8 | + + + + | Post-operative pain | 05/05/19 | | | | 13 | 8 | + + + + | Nasal septal defect | 12/28/19 | | | | 08 | 8 | + + + + Immunizations + + + + | Name | Administration Dates | Next Due | + + + + | Influenza, | 12/27/2017 | | | injectable, | | | | quadrivalent, | | | | preservative free | | | | (IIV4) | | | + + + + Family History + + [...] niece thyroid | + + +------+ + | Gallbladder disease | Neg Hx | | | + + +------+ + | Liver cancer | Neg Hx | | | + + +------+ + + +------+--------+ [...] recent travel history available. | + + Last Filed Vital Signs + + + + + | Vital Sign | Reading | Time Taken | Comments | + + + + + | Blood Pressure | 127/67 | 12/27/2017 8:46 AM | | | | | PST | | + + + + + | Pulse | 75 | 12/27/2017 8:46 AM | | | | | PST | | + + + + + | Temperature | 36.9 C (98.4 F) | 12/27/2017 8:46 AM | | | | | PST | | + + + + + | Respiratory Rate | 16 | 12/27/2017 8:46 AM | | | | | PST | | + + + + + | Oxygen Saturation | 100% | 12/27/2017 8:46 AM | | | | | PST | | + + + + + | Inhaled Oxygen | - | - | | | Concentration | | | | + + + + + | Weight | 60.7 kg (133 lb 14.4 | 12/26/2017 8:00 PM | | | | oz) | PST | | + + + + + | Height | 160 cm (5' 3") | 12/23/2017 11:22 PM | | | | | PST | | + + + + + | Body Mass Index | 23.72 | 12/23/2017 11:22 PM | | | | | PST | | + + + + + Plan of Treatment + + + + + | Health Maintenance | Due Date | Last Done | Comments | + + + + + | Mammogram | | | | | | 2 | | | + + + + + | Influenza (Flu) | | 12/27/2017, 01/31/2017, | | | vaccination (#1) | 9 | 03/08/2016, Additional history | | | | | exists | | + + + + + | Pneumococcal | Aged Out | 12/10/2002 | No longer eligible | | vaccination | | | based on patient's | | | | | age to complete this | | | | | topic | + + + + + Results Not on filefrom Last 3 Months Insurance + +--------+ +--------+ + +--------+ | Payer | Benefi | Subscriber | Effect | Phone | Address | Type | | | t Plan | ID | [id number] | | | | | | / | | Dates | | | | | | Group | | | | | | + +--------+ +--------+ + +--------+ | [employer] | BLUE | [phone] | 02/14/19 | [phone] | [address] | PPO | | | CROSS | | 16-Pre | 8 | [id number] | | | | [place] | | sent | | [place], | | | | [place] | | | | [place] [address] | | + +--------+ +--------+ + +--------+ | [facility] | [facility] | [phone] | 02/14/19 | | | Agency | | SERVICE | | | 08-Pre | | | | | | HEALTH | | sent | | | | | | | | | | | | | | SERVIC | | | | | | | | E | | | | | | + +--------+ +--------+ + +--------+ + +--------+ +--------+ + + | Guarantor Name | Accoun | Relation to | Date | Phone | Billing Address | | | t Type | Patient | of | | | | | | | | | | + +--------+ +--------+ + + | Aura Upton | Person | Self | [birth year] | [address] | | | al/Fam | | 1961 | [phone] | [place] | | | jose alejandro | | | 5 (Home) | [address] | + +--------+ +--------+ + + | Aura Upton | Agency | Self | [birth year] | [address] | | | | | 1961 | [phone] | [place] | | | | | | [address] (Home) | [address] | + +--------+ +--------+ + + Advance Directives + + + + + | Type | Date Recorded | Patient | Explanation | | | | Fleecer | | + + + + + | Advance | | | | | Directives and | | | | | Living Will | | | | + + + + + | Power of | | | | | Flight Agent | | | | + + + + + + + + + + | Code Status | Date | Date | Comments | | | Activated | Inactivated | | + + + + + | Full Code | 12/23/2017 | 12/27/2017 | | | | 11:21 PM | 7:31 PM | | + + + + + + + + +---+ | | | | | + + + +---+ | Full Code | 06/06/2014 | 06/09/2014 | | | | 11:36 AM | 9:50 PM | | + + + +---+ + + + +---+ | | | | | + + + +---+ | Full Code | 06/06/2014 | 06/06/2014 | | | | 5:31 AM | 11:36 AM | | + + + +---+ + + + +---+ | | | | | + + + +---+ | Full Code | 04/28/2012 | 05/04/2012 | | | | 8:20 PM | 4:41 PM | | + + + +---+ + + + +---+ | | | | | + + + +---+ | Full Code | 04/28/2012 | 04/28/2012 | | | | 6:35 AM | 8:20 PM | | + + + +---+
--- OUTSIDE RECORDS SUMMARY | ~2019-07-09 | XMS | Encounter Summary ---
Demographics + + + | Address | [address] | | | [place] [address] | + + + | Home Phone | | + + + | Preferred Language | Unknown | + + + | Marital Status | | + + + | Gnosticist Affiliation | Unknown | + + + | Race | Unknown | + + + | Ethnic Group | Unknown | + + + Author + + + | Author | [facility] | | | and [facility] | + + + | Organization | [facility] | | | and [facility] | + + + | Address | Unknown | + + + | Phone | Unavailable | + + + Support + + + + + | Name | Relationship | Address | Phone | + + + + + | Poncho Oquendo | ECON | [address] | | | | | [facility] [place] | | | | | [address] | | + + + + + | Marta Upton | ECON | [place], [place] | | | | | [address] | | + + + + + Care Team Providers + +------+ + | Care Community Support Worker Name | Role | Phone | + +------+ + | No, Physician | PCP | Unavailable | + +------+ + Encounter Details +--------+ + + + + | Date | Type | Department | Care Team | Description | +--------+ + + + + | 06/08/ | Orders Only | [facility] | Math[facility] | | | 2019 | | [facility] | MD [facility] [address] | | | | | [facility] [address] | | | | | [address] | [place] [address] | | | | | [place] [address] | [phone] | | | | | [phone] | | | +--------+ + + + [...] [address] | | | | | | [place] [address] | | | | | | [phone] | | | | | | | | +--------+---------+ + + + documented as of this encounter Visit Diagnoses Not on filedocumented in this encounter"
--- OUTSIDE RECORDS SUMMARY | ~2019-07-09 | XMS | Encounter Summary ---
Demographics + + + | Address | [address] | | | [place] [address] | + + + | Home Phone | | + + + | Preferred Language | Unknown | + + + | Marital Status | Single | + + + | Episcopal Affiliation | NON | + + + | Race | White | + + + | Ethnic Group | Not or | + + + Author + + + | Author | [facility] | + + + | Organization | [facility] | + + + | Address | [...] Team Providers + +------+ + | Care Poultry Hatchery Laborer Name | Role | Phone | + +------+ + | Tomasa Wagner | PCP | | + +------+ + Encounter Details +--------+ + + + + | Date | Type | Department | Care Team | Description | +--------+ + + + + | 10/27/ | Abstract | [facility] | Tai Stanton, | | | 2012 | | [facility] [id number] | [address] | | | | | [address] | [address] | | | | | Mailcode: Center | [place], [place] | | | | | [facility] | [address] | | | | | Healing, [address] | [phone] | | | | | [place], [place] | | | | | | [address] | | | | | | [phone] | | | +--------+ + + + [...]
--- OUTSIDE RECORDS SUMMARY | ~2019-07-09 | XMS | Encounter Summary ---
Demographics + + + | Address | [address] | | | [place] [address] | + + + | Home Phone | | + + + | Preferred Language | Unknown | + + + | Marital Status | | + + + | Zoroastrian Affiliation | Unknown | + + + | Race | Unknown | + + + | Ethnic Group | Unknown | + + + Author + + + | Author | [facility] | | | and Eduardo[place] | + + + | Organization | [facility] | | | and Eduardo[place] | + + + | Address | Unknown | + + + | Phone | Unavailable | + + + Support + + + + + | Name | Relationship | Address | Phone | + + + + + | Poncho Oquendo | ECON | [address] | | | | | [place] | | | | | [address] | | + + + + + | Marta Upton | ECON | [place] | | | | | [address] | | + + + + + Care Team Providers + +------+ + | Care Tube Buffer Name | Role | Phone | + [...] Ct [address] | | | | | Malignant | Reinaldo, | [place] | | | | | 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, | [place], | | | | | extrahepatic | MD [address] | [place] [address] | | | | | bile ducts | [address] | Phone: | | | | | Procedures | [place], | [phone] | | | | | CT Abdomen | [place] [address] | Fax: | | | | | Pelvis w | Phone: | [phone] | | | | | Contrast | [phone] | | | | | | | Fax: | | | | | | | [phone] | | +--------+--------+ + + + + Reason for Visit Diagnostic/Screening (Routine) +--------+--------+ + + + + | Status | Reason | Specialty | Diagnoses / | Referred By | Referred To | | | | | Procedures | Contact | Contact | +--------+--------+ + + + + | Closed | | Radiology | Diagnoses | | [facility] [address] | | | | | Malignant | Reinaldo, | [place] | | | | | neoplasm of | Epifanio Soler, | [place], | | | | | extrahepatic | MD [address] | [place] [address] | | | | | bile ducts | [address] | Phone: | | | | | Procedures | [place], | [phone] | | | | | CT Abdomen | [place] [address] | Fax: | | | | | Pelvis w | Phone: | [phone] | | | | | Contrast | [phone] | | | | | | | Fax: | | | | | | | [phone] | | +--------+--------+ + + + + Encounter Details +--------+ + + + + | Date | Type | Department | Care Team | Description | +--------+ + + + + | 09/25/ | Hospital | [facility] | Reinaldo, | Malignant neoplasm | | 2014 | Encounter | [facility] [address] | Epifanio Soler MD [address] | of extrahepatic bile | | | | [place], | [address] [place] | ducts (HCC) | | | | [place] [address] | [place] [address] | | | | | [phone] | [phone] | | | | | | | [...] + + +---------+ + + | docusate calcium | Take 240 mg by mouth | | 0 | | | | (SURFAK) 240 mg | as needed. | | | | 7 | | capsule | | | | | | + + + +---------+ + + | gabapentin | Take 300 mg by mouth | | 0 | | | | (NEURONTIN) 300 mg | nightly. | | | | 5 | | capsule | | | | | | + + + +---------+ + + | | Take 1 tablet by | | 0 | | | | HYDROcodone-acetamin | mouth every 4 hours | | | | 7 | | ophen (VICODIN) | as needed. | | | | | | 5-500 mg per tablet | | | | [...] + | LORazepam (ATIVAN) | Take 1 mg by mouth | | 0 | | | | 1 mg tablet | every 4 hours as | | | | 5 | | | needed. | | | | | [...] [address] | | | | | | [facility] [place] [address] | | | | | | [phone] | | | | | | | | +--------+---------+ + + + documented as of this encounter Procedures + +--------+ + + + | Procedure Name | Priori | Date/Time | Associated Diagnosis | Comments | | | ty | | | | + +--------+ + + + | CT ABDOMEN PELVIS W | Routin | 09/25/2013 | Malignant neoplasm | Results for this | | CONTRAST | e | 11:56 AM | of extrahepatic | procedure are in the | | | | PDT | bile ducts (HCC) | results section. | + +--------+ + + + documented in this encounter Results CT Abdomen Pelvis w Contrast (09/25/2013 11:56 AM PDT) + + | Specimen | + + | | + + + + + | Narrative | Performed At | + + + | [facility] CT ABDOMEN AND PELVIS 09/25/2013 11:50 AM CLINICAL | [facility] | | HISTORY: Malignant neoplasm of extrahepatic bile ducts, eval extent | LAB | | of disease COMPARISON: CT abdomen March 19, 2013, CT chest, | | | abdomen and pelvis January 15, 2013 and April 12, 2012 | | | TECHNIQUE: Axial images are performed through the abdomen and pelvis | | | following the uneventful intravenous administration of 85 mL | | | Omnipaque 350 contrast. Oral contrast was also administered | | | Coronal and sagittal reformations are also performed. ABDOMEN | | | FINDINGS: A fat-containing Bochdalek type diaphragmatic hernia is | | | again visible posteriorly on the left. Imaged lung bases and | | | mediastinum are otherwise unremarkable. Postoperative changes are | | | again noted within the central, inferior liver at the level of the | | | gallbladder fossa and estevan hepatis, with numerous surgical clips | | | persisting in this vicinity and extending along the course of the | | | main portal vein and common bile duct. Previously described | | | hypoattenuation along the inferior hepatic margin appears more | | | circumscribed and favors a healing operative margin on the sagittal | | | images in particular, and appearing more pronounced on the axial | | | images due to volume averaging with residual hepatic parenchyma. A | | | serpiginous, small caliber tubular appearing structure again courses | | | along the inferior margin of this defect and is stable, potentially | | | reflecting a vessel. The appearance is otherwise similar to the | | | study of March 19, 2013. Portal venous branches in this vicinity | | | appear widely patent, along with the main portal vein and its | | | tributaries and the hepatic veins. The liver is otherwise | | | unremarkable. No biliary ductal dilation is evident. The | | | gallbladder is absent. The spleen, pancreas, adrenal glands and | | | kidneys are unremarkable. There is no hydronephrosis. There is | | | left colonic diverticulosis without evidence of diverticulitis. The | | | bowel and appendix are otherwise unremarkable. No free air, free | | | fluid, pathologic lymph node enlargement or hernia is evident. | | | Minimal abdominal aortic calcification is present. There is lumbar | | | facet hypertrophy. Bones and soft tissues are otherwise | | | unremarkable. PELVIS FINDINGS: The bladder, uterus and adnexa | | | are unremarkable. Rounded calcifications persist in the deep right | | | pelvic cavity and are consistent with phleboliths. No free air, | | | free fluid, pathologic lymph node enlargement, or hernia is evident. | | | Bones and soft tissues are unremarkable. IMPRESSION - 1. | | | MORE CIRCUMSCRIBED APPEARANCE OF A REGION OF DECREASED ATTENUATION | | | ALONG THE INFERIOR MARGIN OF THE ESTEVAN HEPATIS IN THE VICINITY OF | | | PREVIOUS INSTRUMENTATION, FAVORING A HEALING OPERATIVE MARGIN, WITH | | | STABLE APPEARANCE OF A SMALL, TUBULAR SHAPED STRUCTURE COURSING ALONG | | | THE INFERIOR MARGIN OF THE LIVER, POTENTIALLY REFLECTING A VESSEL. | | | NO BILIARY DUCTAL DILATION, ADENOPATHY OR OTHER SUSPICIOUS FINDING | | | IS EVIDENT. 2. LEFT COLONIC DIVERTICULOSIS WITHOUT EVIDENCE OF | | | DIVERTICULITIS. Dictated and Signed by: Axel Frost MD | | | Electronically signed: 09/25/2013 2:01 PM | | + + + + + | Procedure Note | + + | Edmundo, Rad Results In - 09/25/2013 2:[address] ABDOMEN AND PELVIS | | 09/25/2013 11:50 AM CLINICAL HISTORY: Malignant neoplasm of extrahepatic bile ducts, | | eval extent ofdisease COMPARISON: CT abdomen March 19, 2013, CT chest, abdomen and | | pelvis 2012 and April 12, 2012 TECHNIQUE: Axial images are performed | | through the abdomen and pelvis followingthe uneventful intravenous administration of 85 | | mL Omnipaque 350 contrast. Oralcontrast was also administered Coronal and sagittal | | reformations are alsoperformed. ABDOMEN FINDINGS: A fat-containing Bochdalek type | | diaphragmatic hernia is againvisible posteriorly on the left. Imaged lung bases and | | mediastinum areotherwise unremarkable. Postoperative changes are again noted within | | thecentral, inferior liver at the level of the gallbladder fossa and estevan hepatis,with | | numerous surgical clips persisting in this vicinity and extending along thecourse of the | | main portal vein and common bile duct. Previously describedhypoattenuation along the | | inferior hepatic margin appears more circumscribed andfavors a healing operative margin | | on the sagittal images in particular, andappearing more pronounced on the axial images | | due to volume averaging withresidual hepatic parenchyma. A serpiginous, small caliber | | tubular appearingstructure again courses along the inferior margin of this defect and is | | stable,potentially reflecting a vessel. The appearance is otherwise similar to | | thestudy of March 19, 2013. Portal venous branches in this vicinity appearwidely | | patent, along with the main portal vein and its tributaries and thehepatic veins. The | | liver is otherwise unremarkable. No biliary ductal dilationis evident. The gallbladder | | is absent.The spleen, pancreas, adrenal glands and kidneys are unremarkable. There is | | nohydronephrosis. There is left colonic diverticulosis without evidence | | ofdiverticulitis. The bowel and appendix are otherwise unremarkable. No freeair, free | | fluid, pathologic lymph node enlargement or hernia is evident. Minimal abdominal aortic | | calcification is present. There is lumbar facethypertrophy. Bones and soft tissues are | | otherwise unremarkable. PELVIS FINDINGS: The bladder, uterus and adnexa are | | unremarkable. Roundedcalcifications persist in the deep right pelvic cavity and are | | consistent withphleboliths. No free air, free fluid, pathologic lymph node enlargement, | | orhernia is evident. Bones and soft tissues are unremarkable. IMPRESSION - 1. MORE | | CIRCUMSCRIBED APPEARANCE OF A REGION OF DECREASED ATTENUATION ALONG THEINFERIOR MARGIN | | OF THE ESTEVAN HEPATIS IN THE VICINITY OF PREVIOUSINSTRUMENTATION, FAVORING A HEALING | | OPERATIVE MARGIN, WITH STABLE APPEARANCE OFA SMALL, TUBULAR SHAPED STRUCTURE COURSING | | ALONG THE INFERIOR MARGIN OF THELIVER, POTENTIALLY REFLECTING A VESSEL. NO BILIARY | | DUCTAL DILATION, ADENOPATHYOR OTHER SUSPICIOUS FINDING IS EVIDENT.2. LEFT COLONIC | | DIVERTICULOSIS WITHOUT EVIDENCE OF DIVERTICULITIS.Dictated and Signed by: Axel Frost, | | Electronically signed: 09/25/2013 2:01 PM | | | |PELVIS FINDINGS: The bladder, uterus and adnexa are unremarkable. Rounded | |calcifications persist in the deep right pelvic cavity and are consistent with | |phleboliths. No free air, free fluid, pathologic lymph node enlargement, or | |hernia is evident. Bones and soft tissues are unremarkable. | | | |IMPRESSION - | |1. MORE CIRCUMSCRIBED APPEARANCE OF A REGION OF DECREASED ATTENUATION ALONG THE | |INFERIOR MARGIN OF THE ESTEVAN HEPATIS IN THE VICINITY OF PREVIOUS | |INSTRUMENTATION, FAVORING A HEALING OPERATIVE MARGIN, WITH STABLE APPEARANCE OF | |A SMALL, TUBULAR SHAPED STRUCTURE COURSING ALONG THE INFERIOR MARGIN OF THE | |LIVER, POTENTIALLY REFLECTING A VESSEL. NO BILIARY DUCTAL DILATION, ADENOPATHY | |OR OTHER SUSPICIOUS FINDING IS EVIDENT. | | | |2. LEFT COLONIC DIVERTICULOSIS WITHOUT EVIDENCE OF DIVERTICULITIS. | | | |Dictated and Signed by: Axel Frost MD | | Electronically signed: 09/25/2013 2:01 PM | + + + +---------+ + + | Performing | Address | City/State/Zipcode | Phone Number | | Organization | | | | + +---------+ + + | [facility] | | | [phone] | + +---------+ + + | [facility] | | | [phone] | + +---------+ + + documented in this encounter Visit Diagnoses + + | Diagnosis | + + | Malignant neoplasm of extrahepatic bile ducts | + + documented in this encounter Administered Medications + +--------+ +--------+------+------+ | Medication Order | MAR | Action | Dose | Rate | Site | | | Action | Date | | | | + +--------+ +--------+------+------+ | iohexol (OMNIPAQUE 350) 350 | Given | 09/26/19 | 85 mLs | | | | mg/mL injection 85 mL 85 mL, | | 14 11:56 | | | | | Intravenous, ONCE PRN, Other, | | AM PDT | | | | | Starting 09/25/13 at 1156, For | | | | | | | 1 dose, Cat Scanner | | | | | | + +--------+ +--------+------+------+ +---+---+ | | | +---+---+ documented in this encounter"
--- OUTSIDE RECORDS SUMMARY | ~2019-07-09 | XMS | Encounter Summary ---
Demographics + + + | Address | [address] | | | [place] [address] | + + + | Home Phone | | + + + | Preferred Language | Unknown | + + + | Marital Status | | + + + | Yazidism Affiliation | Unknown | + + + | Race | Unknown | + + + | Ethnic Group | Unknown | + + + Author + + + | Author | [facility] | | | and [place] | + + + | Organization | [facility] | | | and [place]ardo[place] | + + + | Address | Unknown | + + + | Phone | Unavailable | + + + Support + + + + + | Name | Relationship | Address | Phone | + + + + + | Poncho Oquendo | ECON | [address] | | | | | [place] | | | | | [address] | | + + + + + | Marta Upton | ECON | [address] | | | | | [address] | | + + + + + Care Team Providers + +------+ + | Care Lumber Bearer Name | Role | Phone | + [...] 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, | [place]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 | MD [address] | [place], | | | | | (HCC) | [address] | [place] [address] | | | | | Procedures | [place], | Phone: | | | | | [place] | [place] [address] | [phone] | | | | | ONDANSETRON | Phone: | Fax: | | | | | HCL | [phone] | [phone] | | | | | INJECTION, 1 | Fax: | | | | | | MG CO | [phone] | | | | | | FOSAPREPITAN | | | | | | | T INJECTION, | | | | | | | 1 MG CO | | | | | | | LORAZEPAM | | | | | | | INJECTION, 2 | | | | | | | MG CO | | | | | | | CISPLATIN 10 | | | | | | | MG | | | | | | | INJECTION | | | | | | | CO | | | | | | | GEMCITABINE | | | | | | | HCL | | | | | | | INJECTION, | | | | | | | 200 MG CO | | | | | | | DIPHENHYDRAM | | | | | | | INE HCL | | | | | | | INJECTIO, 50 | | | | | | | MG CO | | | | | | | METHYLPREDNI | | | | | | | SOLONE | | | | | | | INJECTION, | | | | | | | 125 MG CO | | | | | | | DEXAMETHASON | | | | | | | E SODIUM | | | | | | | PHOS, 1 MG | | | | | | | CO NORMAL | | | | | | | SALINE | | | | | | | SOLUTION | | | | | | | INFUS, 500 | | | | | | | ML CO | | | | | | | NORMAL | | | | | | | SALINE | | | | | | | SOLUTION | | | | | | | INFUS, 250 | | | | | | | ML CO | | | | | | | STERILE | | | | | | | WATER/SALINE | | | | | | | , 10 ML CO | | | | | | | INJ HEPARIN | | | | | | | SODIUM PER | | | | | | | 1000U CO | | | | | | | CHEMOTHER, | | | | | | | IV INFUSION, | | | | | | | 1 HR CO | | | | | | | CHEMOTHER, | | | | | | | IV PUSH,EA | | | | | | | ADD DRUG CO | | | | | | | CHEMOTHER, | | | | | | | IV INFUSION, | | | | | | | EA HR CO | | | | | | | CHEMOTHER,NO | | | | | | | N-HORMONE | | | | | | | ANTI-NEOPL, | | | | | | | SUB-Q/IM CO | | | | | | | [...] | +--------+ + + + + | 10/31/ | Hospital | [facility] | Reinaldo, | Gallbladder cancer, | | 2015 | Encounter | MED [facility] | Epifanio Soler MD [address] | carcinoma (HCC) | | | | INFUSION [address] | [address] [place] | (Primary Dx) | | | | [place], | [place] [address] | | | | | [place] [address] | [phone] | | | | | [phone] | | | +--------+ + + + [...] + + + +---------+ + + | amitriptyline | Take 10 mg by mouth | | 0 | | | | (ELAVIL) 10 mg | nightly. | | | | 7 | | tablet | | | | | | + + + +---------+ + + | dexamethasone | Take one tablet PO | 2 | 0 | 09/04/19 | | | (DECADRON) 4 mg | as directed. | tablet | | 15 | 5 | | tabletIndications: | | | | | | | Malignant neoplasm | | | | | | | of gallbladder (HCC) | | | | | | + + + +---------+ + + | docusate calcium | Take 240 mg by mouth | | 0 | | | | (SURFAK) 240 mg | as needed. | | | | 7 | | capsule | | | | | | + + + +---------+ + + | fish oil 1,000 mg | Take 1,000 mg by | | 0 | | | | capsule | mouth Daily. | | | | 5 | + + + +---------+ + + | | Take 1 tablet by | 40 | 0 | 11/01/19 | | | HYDROcodone-acetamin | mouth every 6 hours | tablet | | 15 | 5 | | ophen (NORCO) | as needed for Pain | | | | | | 7.5-325 mg per | for up to 10 days. | | | | | | tablet [...] + + + +---------+ + + | MULTIPLE VITAMIN | Take by mouth | | 0 | | | | PO | Daily. | | | | 7 | + + + +---------+ + + | ondansetron | Take 8 mg by mouth | | 0 | | | | (ZOFRAN ODT) 8 mg | every 8 hours as | | | | 7 | | disintegrating | needed for Nausea. | | | | | | tablet | | | | | | + + + +---------+ + + | Probiotic Product | Take by mouth | | 0 | | | | (PROBIOTIC DAILY PO) | Daily. | | | | 0 | + + + +---------+ + + documented as of this encounter Progress Notes Jamila Dong RN - 10/31/2014 1:16 PM PDTPatient discharged in satisfactory condition . Discharged ambulatory. With family. To home. Future appointments and After Visit Summary (AVS) provided. Jamila Dong RN documented in this encounter Plan of Treatment +--------+---------+ + + + | Date | Type | Specialty | Care Team | Description | +--------+---------+ + + + | 09/17/ | Office | Urology | Pedro Green, | | | 2019 | Visit | | DO [address] | | | | | | [place] [address] | | | | | | [phone] | | | | | | | | +--------+---------+ + + + documented as of this encounter Procedures + +--------+ + + + | Procedure Name | Priori | Date/Time | Associated Diagnosis | Comments | | | ty | | | | + +--------+ + + + | SLIDE REVIEW, | Routin | 10/31/2014 | Gallbladder | Results for this | | PERIPHERAL SMEAR | e | 8:36 AM | cancer, carcinoma | procedure are in the | | | | PDT | (HCC) | results section. | + +--------+ + + + | CA 19-9, QUANT | STAT | 10/31/2014 | Gallbladder | Results for this | | | | 8:36 AM | cancer, carcinoma | procedure are in the | | | | PDT | (HCC) | results section. | + +--------+ + + + | CBC WITH | STAT | 10/31/2014 | Gallbladder | Results for this | | DIFFERENTIAL | | 8:36 AM | cancer, carcinoma | procedure are in the | | | | PDT | (HCC) | results section. | + +--------+ + + + | CA 125, QUANT | STAT | 10/31/2014 | Gallbladder | Results for this | | | | 8:36 AM | cancer, carcinoma | procedure are in the | | | | PDT | (HCC) | results section. | + +--------+ + + + | LACTATE | STAT | 10/31/2014 | Gallbladder | Results for this | | DEHYDROGENASE | | 8:36 AM | cancer, carcinoma | procedure are in the | | | | PDT | (HCC) | results section. | + +--------+ + + + | COMPREHENSIVE | STAT | 10/31/2014 | Gallbladder | Results for this | | METABOLIC PANEL | | 8:36 AM | cancer, carcinoma | procedure are in the | | | | PDT | (HCC) | results section. | + +--------+ + + + documented in this encounter Results Slide Review, Peripheral Smear (10/31/2014 8:36 AM PDT) + + + + + + | Component | Value | Ref Range | Performed | Pathologist | | | | | At | Signature | + + + + + + | WBC | Normal | | [facility] | | | Morphology | | | [facility] | | | | | | [facility] | | | | | | C[facility] - | | | | | | LABORATORY | | + + + + + + | Platelet | Decreased (A) | Adequate | [facility] | | | Estimate | | | [facility] | | | | | | [facility] | | | | | | C[facility] - | | | | | | LABORATORY | | + + + + + + | Hypochromas | Slight (A) | (none) | [facility] | | | ia | | | [facility] | | | | | | MEDICAL | | | | | | CENTER - | | | | | | LABORATORY | | + + + + + + | Polychromas | Slight (A) | (none) | [facility] | | | ia | | | [facility] | | | | | | MEDICAL | | | | | | CENTER - | | | | | | LABORATORY | | + + + + + + | Anisocytosi | Moderate (A) | (none) | [facility] | | | s | | | [facility] | | | | | | MEDICAL | | | | | | CENTER - | | | | | | LABORATORY | | + + + + + + + + | Specimen | + + | Blood | + + + + + | Narrative | Performed At | + + + | Slide review agrees with autodiff. | [facility] | | | [facility] | | | [facility] | | | - LABORATORY | + + + + + + + + | Performing | Address | City/State/Zipcode | Phone Number | | Organization | | | | + + + + + | [facility] | [address] | [place] | [phone] | | [facility] | | [address] | | | - LABORATORY | | | | + + + + + CA 19-9, Quant (10/31/2014 8:36 AM PDT) + + + + + + | Component | Value | Ref Range | Performed | Pathologist | | | | | At | Signature | + + + + + + | CA 19-9 | 10Comment: The Siemens | 0 - 37 U/mL [...] [address] | | | | | [address] | | | | | | [place] [address] | | | | + + + + + + + + | Specimen | + + | Blood specimen | | (specimen) | + + + + + + + | Performing | Address | City/State/Zipcode | Phone Number | | Organization | | | | + + + + + | [facility] | [address] | [place] [address] | [phone] | + + + + + CA 125, Quant (10/31/2014 8:36 AM PDT) + +-------+ + + + | Component [...] [address] | [place] | [phone] | | [facility] | | [address] | | | - LABORATORY | | | | + + + + + Lactate Dehydrogenase (10/31/2014 8:36 AM PDT) + + + + + + | Component | Value | Ref Range | Performed | Pathologist | | | | | At | Signature | + + + + + + | LDH TOTAL | 246 (H)Comment: | 91 - 180 U/L | [facility] | | | | AMYLASE, AMMONIA, CPK, | | [facility] | | | | IRON, K+, LDH, SGOT/AST, | | MEDICAL | | | | SGPT/ALT, and TOTAL | | CENTER - | | | | BILIRUBIN may be | | LABORATORY | | | | adversely affected by 1+ | | | | | | hemolysis. | | | | + + + + + + + + | Specimen | + + | Blood | + + + + + + + | Performing | Address | City/State/Zipcode | Phone Number | | Organization | | | | + + + + + | [facility] | [address] | [place] | [phone] | | [facility] | | [address] | | | - LABORATORY | | | | + + + + + Comprehensive Metabolic Panel (10/31/2014 8:36 AM PDT) + + + + + + | Component | Value | Ref Range | Performed | Pathologist | | | | | At | Signature | + + + + + + | Na | 136 | 136 - 149 | [facility] | | | | | mmol/L | [facility] | | | | | | MEDICAL | | | | | | CENTER - | | | | | | LABORATORY | | + + + + + + | K | 4.4 | 3.5 - 5.1 | [facility] | | | | | mmol/L | [facility] | | | | | | MEDICAL | | | | | | CENTER - | | | | | | LABORATORY | | + + + + + + | Cl | 104 | 98 - 109 mmol/L | [facility] [...] + + + | Anion Gap | 6 | 3 - 16 mmol/L | [facility] | | | | | | [facility] | | | | | | MEDICAL | | | | | | CENTER - | | | | | | LABORATORY | | + + + + + + | Glucose | 100 | 70 - 109 mg/dL | [facility] [...] + + + + | Creatinine | 0.76 | 0.60 - 1.30 | [facility] | [...] | | | FILTRATION | mL/min/1.73m2 | [facility] | | | GREEK | RATE,ESTIMATED | | MEDICAL | | | | mL/min/1.51l7Vmxl than | | CENTER - | | [...] + + + + | Calcium | 8.4 | 8.3 - 10.5 | [facility] | | | | | mg/dL | [facility] | | | | | | MEDICAL | | | | | | CENTER - | | | | | | LABORATORY | | + + + + + + | Albumin | 3.5 | 3.2 - 5.0 g/dL | [facility] | | | | | | [facility] | | | | | | MEDICAL | | | | | | CENTER - | | | | | | LABORATORY | | + + + + + + | Bilirubin | 0.1 | 0.1 - 1.5 mg/dL | [facility] [...] + + + + | AST | 33 | 10 - 42 U/L | [facility] | | | | | | [facility] | | | | | | MEDICAL | | | | | | CENTER - | | | | | | LABORATORY | | + + + + + + | ALT | 25 | 6 - 45 U/L | [facility] | | | | | | [facility] | | | | | | MEDICAL | | | | | | CENTER - | | | | | | LABORATORY | | + + + + + + | Alkaline | 169 (H) | 40 - 110 U/L | [facility] | | | Phosphatase | | | [facility] | | | | | | MEDICAL | | | | | | CENTER - | | | | | | LABORATORY | | + + + + + + | Globulin | 2.4 | g/dL | [facility] | | | | | | [facility] | | | | | | MEDICAL | | | | | | CENTER - | | | | | | LABORATORY | | + + + + + + | Albumin/Sakina | 1.5 | | [facility] | | | bulin Ratio | | | [facility] | | | | | | MEDICAL | | | | | | CENTER - | | | | | | LABORATORY | | + + + + + + | BUN/Creatin | 11.8 | | [facility] | | | ine Ratio | | | [facility] | | [...] [address] | [place] | [phone] | | [facility] | | [address] | | | - LABORATORY | | | | + + + + + CBC with Differential (10/31/2014 8:36 AM PDT) + + + + + + | Component | Value | Ref Range | Performed | Pathologist | | | | | At | Signature | + + + + + + | WBC | 2.6 (L) | 4.0 - 11.0 K/uL | [facility] | | | | | | [facility] | | | | | | MEDICAL | | | | | | CENTER - | | | | | | LABORATORY | | + + + + + + | RBC | 2.93 (L) | 3.70 - 5.20 | [facility] | | | | | M/uL | [facility] | | | | | | MEDICAL | | | | | | CENTER - | | | | | | LABORATORY | | + + + + + + | Hemoglobin | 9.5 (L) | 11.5 - 16.0 | [facility] | | | | | g/dL | [facility] | | | | | | MEDICAL | | | | | | CENTER - | | | | | | LABORATORY | | + + + + + + | Hematocrit | 29.2 (L) | 34.0 - 47.0 % | [facility] | | | | | | [facility] | | | | | | MEDICAL | | | | | | CENTER - | | | | | | LABORATORY | | + + + + + + | MCV | 99.8 | 83.0 - 101.0 fL | [facility] | | | | | | [facility] | | | | | | MEDICAL | | | | | | CENTER - | | | | | | LABORATORY | | + + + + + + | MCH | 32.6 | 28.0 - 35.0 pg | [facility] | | | | | | [facility] | | | | | | MEDICAL | | | | | | CENTER - | | | | | | LABORATORY | | + + + + + + | MCHC | 32.7 | 32.0 - 36.0 | [facility] | | | | | g/dL | [facility] | | | | | | MEDICAL | | | | | | CENTER - | | | | | | LABORATORY | | + + + + + + | RDW-CV | 25.6 (H) | <15.0 % | [facility] | | | | | | [facility] | | | | | | MEDICAL | | | | | | CENTER - | | | | | | LABORATORY | | + + + + + + | Platelet | 94 (L) | 140 - 440 K/uL | [facility] | | | Count | | | [facility] | | | | | | MEDICAL | | | | | | CENTER - | | | | | | LABORATORY | | + + + + + + | MPV | 8.6 | fL | [facility] | | | | | | [facility] | | | | | | MEDICAL | | | | | | CENTER - | | | | | | LABORATORY | | + + + + + + | % | 43.3 (L) | 45.0 - 82.0 % | [facility] | | | Neutrophils | | | [facility] | | | | | | MEDICAL | | | | | | CENTER - | | | | | | LABORATORY | | + + + + + + | % | 38.8 | 20.0 - 45.0 % | [facility] | | | Lymphocytes | | | [facility] | | | | | | MEDICAL | | | | | | CENTER - | | | | | | LABORATORY | | + + + + + + | % Monocytes | 15.9 (H) | 4.0 - 12.0 % | [facility] | | | | | | [facility] | | | | | | MEDICAL | | | | | | CENTER - | | | | | | LABORATORY | | + + + + + + | % | 1.2 | 0.0 - 5.0 % | [facility] | | | Eosinophils | | | [facility] | | | | | | MEDICAL | | | | | | CENTER - | | | | | | LABORATORY | | + + + + + + | % Basophils | 0.8 | 0.0 - 1.0 % | [facility] | | | | | | [facility] | | | | | | MEDICAL | | | | | | CENTER - | | | | | | LABORATORY | | + + + + + + | Absolute | 1.10 (L) | 1.80 - 8.50 | [facility] | | | Neutrophils | | K/uL | [facility] | | | | | | MEDICAL | | | | | | CENTER - | | | | | | LABORATORY | | + + + + + + | Absolute | 1.00 | 0.60 - 3.20 | [facility] | | | Lymphocytes | | K/uL | [facility] | | | | | | MEDICAL | | | | | | CENTER - | | | | | | LABORATORY | | + + + + + + | Absolute | 0.40 | 0.00 - 1.00 | [facility] | | | Monocytes | | K/uL | [facility] | | | | | | MEDICAL | | | | | | CENTER - | | | | | | LABORATORY | | + + + + + + | Absolute | 0.00 | 0.00 - 0.40 | [facility] | | | Eosinophils | | K/uL | [facility] | | | | | | MEDICAL | | | | | | CENTER - | | | | | | LABORATORY | | + + + + + + | Absolute | 0.00 | 0.00 - 0.10 | [facility] | | | Basophils | | K/uL | [facility] | | | | | [...] [address] | [place] | [phone] | | 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 Administered Medications + +--------+ +------+------+------+ | Medication Order | MAR | Action | Dose | Rate | Site | | | Action | Date | | | | + +--------+ +------+------+------+ | alteplase (CATHFLO ACTIVASE) | Given | 11/01/19 | 2 mg | | | | injection 2 mg 2 mg, | | 15 8:57 | | | | | Intracatheter, ONCE, [facility] 10/31/14 | | AM PDT | | | | | at 0915, For 1 dose | | | | | | + +--------+ +------+------+------+ +---+---+ | | | +---+---+ + +---------+ +-------+-------+---+ | CISplatin (PLATINOL) 39 mg in | New Bag | 11/01/19 | 39 mg | 539 | | | sodium chloride 0.9% 500 mL chemo | | 15 11:08 | | mL/hr | | | infusion 39 mg (20 mg/m2 | | AM PDT | | | | | 1.95 m2 Treatment plan recorded | | | | | | | BSA), Intravenous, Administer | | | | | | | over 1 Hours, ONCE, [facility] 10/31/14 | | | | | | | at 1045, For 1 dose, | | | | | | | Chemotherapy: This is a high risk | | | | | | | medication. Vesicant., | | | | | | + +---------+ +-------+-------+---+ +---+---+ | | | +---+---+ + +-------+ +-------+---+---+ | diphenhydrAMINE (BENADRYL) | Given | 11/01/19 | 25 mg | | | | injection 25 mg 25 mg, | | 15 10:05 | | | | | Intravenous, ONCE, [facility] 10/31/14 at | | AM PDT | | | | | 1015, For 1 dose | | | | | | + +-------+ +-------+---+---+ +---+---+ | | | +---+---+ + +---------+ +--------+-------+---+ | fosaprepitant (EMEND) 150 mg in | New Bag | 11/01/19 | 150 mg | 450 | | | sodium chloride 0.9% 150 mL IVPB | | 15 10:30 | | mL/hr | | | 150 mg, Intravenous, Administer | | AM PDT | | | | | over 20 Minutes, ONCE, [facility] | | | | | | | 10/31/14 at 1015, For 1 dose, Do | | | | | | | not shake bag. Administer prior | | | | | | | to chemotherapy., | | | | | | + +---------+ +--------+-------+---+ +---+---+ | | | +---+---+ + +---------+ + +--------+---+ | gemcitabine (GEMZAR) 1,560 mg | New Bag | 11/01/19 | 1,560 mg | 582.1 | | | in sodium chloride 0.9% 250 mL | | 15 12:39 | | mL/hr | | | chemo infusion 1,560 mg (800 | | PM PDT | | | | | mg/m2 | | | | | | | 1.95 m2 Treatment plan recorded | | | | | | | BSA), Intravenous, Administer | | | | | | | over 30 Minutes, ONCE, [facility] | | | | | | | 10/31/14 at 1245, For 1 dose, | | | | | | | Chemotherapy: This is a high risk | | | | | | | medication. Do not refrigerate., | | | | | | | | | | | | | + +---------+ + +--------+---+ +---+---+ | | | +---+---+ + +-------+ +-------+---+---+ | heparin 100 units/mL flush | Given | 11/01/19 | 500 | | | | injection 500 Units 500 Units (5 | | 15 1:19 | Units | | | | mL), Intracatheter, PRN, Line | | PM PDT | | | | | Care, Starting [facility] 10/31/14 at | | | | | | | 0958, , | | | | | | + +-------+ +-------+---+---+ +---+---+ | | | +---+---+ + +---------+ +---+-------+---+ | ondansetron (ZOFRAN) 8 mg, | New Bag | 11/01/19 | | 204 | | | dexamethasone (DECADRON) 4 mg in | | 15 10:17 | | mL/hr | | | sodium chloride 0.9% 50 mL IVPB | | AM PDT | | | | | Intravenous, Administer over 16 | | | | | | | Minutes, ONCE, [facility] 10/31/14 at | | | | | | | 1015, For 1 dose, Administer | | | | | | | prior to chemotherapy., | | | | | | + +---------+ +---+-------+---+ +---+---+ | | | +---+---+ documented in this encounter"
--- OUTSIDE RECORDS SUMMARY | ~2019-07-09 | XMS | Encounter Summary ---
Demographics + + + | Address | [address] | | | [place] [address] | + + + | Home Phone | | + + + | Preferred Language | Unknown | + + + | Marital Status | | + + + | Sikhism Affiliation | Unknown | + + + | Race | Unknown | + + + | Ethnic Group | Unknown | + + + Author + + + | Author | [facility] | | | and Eduardo[place] | + + + | Organization | [facility] | | | and [place]ardo[place] | + + + | Address | Unknown | + + + | Phone | Unavailable | + + + Support + + + + + | Name | Relationship | Address | Phone | + + + + + | Poncho Oquendo | ECON | [address] | | | | | [facility], [place] | | | | | [address] | | + + + + + | Marta Upton | ECON | [place], [place] | | | | | [address] | | + + + + + Care Team Providers + +------+ + | Care Motel Operator Name | Role | Phone | + +------+ + PCP | Unavailable | + +------+ + Encounter Details +--------+ + + + + | Date | Type | Department | Care Team | Description | +--------+ + + + + | 05/05/ | Hospital | [facility] | Hakan Cherry | | | 2011 | Encounter | MED CTR XRAY [address] | | | | | [place] | [address] [place], [place] | | | | | [place] [address] | [address] | | | | | [phone] | | | +--------+ + + + [...] | Visit | | DO [address] [facility] | | | | | | [place] [address] | | | | | | [phone] | | | | | | | | +--------+---------+ + + + documented as of this encounter Procedures + +--------+ + + + | Procedure Name | Priori | Date/Time | Associated Diagnosis | Comments | | | ty | | | | + +--------+ + + + | FL FACET INJECTION | | 05/06/2011 | | Results for this | | | | 12:49 PM | | procedure are in the | | | | PDT | | results section. | + +--------+ + + + documented in this encounter Results FL Facet Injection (05/06/2011 12:49 PM PDT) + + | Specimen | + + | | + + + + + | Narrative | Performed At | + + + | [facility] Diagnostic Imaging Department | [facility] | | [address] | [facility] | | PROCEDURE NOTE LUMBAR FACET | DIAG IMG | | INJECTION, 05/06/2011 CLINICAL HISTORY: ICD-9 CODE 721.3 LUMBAR | | | SPONDYLOSIS. After informed consent was obtained, the patient lay | | | in the prone position on the fluoroscopy table. The areas were | | | identified under fluoroscopic guidance. The areas were prepped and | | | draped in sterile fashion. A 25-gauge, 1.5-inch needle was | | | inserted into each region and approximately 3 mL of buffer ed 1% | | | lidocaine was infused and a 22-gauge spinal needle was inserted into | | | the superior portion of ea ch facet under fluoroscopic guidance. | | | Confirmation into the joint spaces was obtained with infusion of | | | approximately .5 mL of Isovue contrast which showed outline of the | | | facet joints. Then, a combinat ion of 1 mL of 1% lidocaine and 1 mL | | | of 40 mg/mL Kenalog was infused. The patient tolerated the proc | | | edure without complications. Pre- and post-procedure blood pressures | | | were stable. The patient was g iven verbal as well as written | | | followup instructions, and the patient reported some improvement in pa | | | in symptoms post procedure. Prior to the start of the | | | procedure, the following were performed and verified, including | | | correct pat ient identity, correct site/side marked and visible, | | | agreement on the procedure to be done, correct p atient positioning | | | and an accurate procedure consent form. Any safety precautions based | | | on clinical history and/or medication use have been addressed. | | | I personally performed the procedure above. Dictated Date/Time: | | | 05/06/2011 17:08 Transcribed Date/Time: 05/06/2011 17:17 | | | Senior Data Developer: <Electronically Signed by Haakn Field | | | MD Dilip> 05/14/11 1336 | | + + + + + | Procedure Note | + + | Edmundo, Rad Conversion - 03/23/2013 4:58 PM [facility]ly [facility] | | Diagnostic Imaging Department [address] [place] [address] | | PROCEDURE NOTE LUMBAR FACET INJECTION, 05/06/2011 | | CLINICAL HISTORY: ICD-9 CODE 721.3 LUMBAR SPONDYLOSIS. After informed consent was | | obtained, the patient lay in the prone position on the fluoroscopy table. The areas | | were identified under fluoroscopic guidance. The areas were prepped and draped in | | sterile fashion. A 25-gauge, 1.5-inch needle was inserted into each region and | | approximately 3 mL of buffered 1% lidocaine was infused and a 22-gauge spinal needle was | | inserted into the superior portion of each facet under fluoroscopic guidance. | | Confirmation into the joint spaces was obtained with infusion of approximately .5 mL of | | Isovue contrast which showed outline of the facet joints. Then, a combination of 1 mL | | of 1% lidocaine and 1 mL of 40 mg/mL Kenalog was infused. The patient tolerated the | | procedure without complications. Pre- and post-procedure blood pressures were stable. | | The patient was given verbal as well as written followup instructions, and the patient | | reported some improvement in pain symptoms post procedure. Prior to the start of the | | procedure, the following were performed and verified, including correct patient | | identity, correct site/side marked and visible, agreement on the procedure to be done, | | correct patient positioning and an accurate procedure consent form. Any safety | | precautions based on clinical history and/or medication use have been addressed. I | | personally performed the procedure above. Dictated Date/Time: 05/06/2011 | | 17:08Transcribed Date/Time: 05/06/2011 17:17Transcriptionist: <Electronically | | Signed by Hakan Cherry MD> 05/14/11 1336 | | | |Prior to the start of the procedure, the following were performed and verified, including c orrect pat | |ient identity, correct site/side marked and visible, agreement on the procedure to be done, correct p | |atient positioning and an accurate procedure consent form. Any safety precautions based on clinical | |history and/or medication use have been addressed. | | | |I personally performed the procedure above. | | | |Dictated Date/Time: 05/06/2011 17:08 | |Transcribed Date/Time: 05/06/2011 17:17 | |Senior Data Developer: | |<Electronically Signed by aHkan Cherry MD> 05/14/11 1336 | + + + +---------+ + + | Performing | Address | City/State/Zipcode | Phone Number | | Organization | | | | + +---------+ + + | [facility] | | | | | [facility] | | | | + +---------+ + + documented in this encounter Visit Diagnoses Not on filedocumented in this encounter"
--- OUTSIDE RECORDS SUMMARY | ~2019-07-09 | XMS | Encounter Summary ---
Demographics + + + | Address | [address] | | | [place] [address] | + + + | Home Phone | | + + + | Preferred Language | Unknown | + + + | Marital Status | Single | + + + | Congregational Affiliation | NON | + + + | Race | White | + + + | Ethnic Group | Not or | + + + Author + + + | Author | [facility] | + + + | Organization | [facility] | + + + | Address [...] Team Providers + +------+ + | Care Contract Design Agent Name | Role | Phone | + +------+ + | Tomasa Wagner | PCP | | + +------+ + Encounter Details +--------+ + + + + | Date | Type | Department | Care Team | Description | +--------+ + + + + | 05/24/ | MyChart | [facility] | Miguel Seymour, | RE: Share Info with | | 2014 | Encounter | [facility] | [address] | Dr[address] Tai Stanton | | | | [place] [address] | [facility] | | | | | [address] | [place], [place] | | | | | [place], [facility] | [address] | | | | | [place], [place] | [phone] | | | | | [address] | | | | | | [phone] | | | +--------+ + + + [...]
--- OUTSIDE RECORDS SUMMARY | ~2019-07-09 | XMS | Encounter Summary ---
Demographics + + + | Address | [address] | | | [place] [address] | + + + | Home Phone | | + + + | Preferred Language | Unknown | + + + | Marital Status | | + + + | Congregation Affiliation | Unknown | + + + | Race | Unknown | + + + | Ethnic Group | Unknown | + + + Author + + + | Author | [facility] | | | and [place] | + + + | Organization | [facility] | | | and [place] | + + + | Address | Unknown | + + + | Phone | Unavailable | + + + Support + + + + + | Name | Relationship | Address | Phone | + + + + + | Poncho Oquendo | ECON | [address] | | | | | [facility], [place] | | | | | [address] | | + + + + + | Marta Upton | ECON | [place] | | | | | [address] | | + + + + + Care Team Providers + +------+ + | Care Employee Benefits Coordinator Name | Role | Phone | + +------+ + | No, Physician | PCP | Unavailable | + +------+ + Reason for Visit + + + | Reason | Comments | + + + | Follow-up | | + + + Evaluate & Treat (Routine) +--------+--------+ + + + + | Status | Reason | Specialty | Diagnoses / | Referred By | Referred To | | | | | Procedures | Contact | Contact | +--------+--------+ + + + + | Closed | | | Diagnoses | Joel, | Peter, | | | | | | Cristela Puga, | Pedro Aparicio DO | | | | | Hydronephros | MD [address] | [address] | | | | | is with | RICARDA JOEL | [place] | | | | | renal and | [place], | [place] | | | | | ureteral | [place] | [address] Phone: | | | | | calculous | [address] | [phone] | | | | | obstruction | Phone: | Fax: | | | | | | [phone] | [phone] | | | | | | Fax: | | | | | | | [phone] | | +--------+--------+ + + + + Encounter Details +--------+---------+ + + + | Date | Type | Department | Care Team | Description | +--------+---------+ + + + | 03/26/ | Office | [facility] | Pedro Green, | Gallbladder cancer, | | 2020 | Visit | UROLOGY [address] | DO [address] | carcinoma (HCC) | | | | [address] | [place] [address] | (Primary Dx); | | | | [place], [place] | [phone] | Obstruction of left | | | | [address] | | ureter | | | | [phone] | | | +--------+---------+ + + + [...] + + + | Blood Pressure | 108/71 | 03/26/2019 10:35 AM | | | | | PST | | + + + + + | Pulse | 89 | 03/26/2019 10:35 AM | | | | | PST | | + + + + + | Temperature | 36.2 C (97.1 F) | 03/26/2019 10:35 AM | | | | | PST | | + + + + + | Respiratory Rate | - | - | | + + + + + | Oxygen Saturation | 98% | 03/26/2019 10:35 AM | | | | | PST | | + + + + + | Inhaled Oxygen | - | - | | | Concentration | | | | + + + + + | Weight | 69 kg (152 lb 3.2 | 03/26/2019 10:35 AM | | | | oz) | PST | | + + + + + | Height | 160 cm (5' 3") | 03/26/2019 10:35 AM | | | | | PST | | + + + + + | Body Mass Index | 26.96 | 03/26/2019 10:35 AM | | | | | PST | | + + + + + documented in this encounter Patient Instructions Patient Instructions Eleonora Saxena, Candy Mixer - 03/26/2019 10:30 AM PSTPLAN : Proceed with Surgery on 04/26. 4 months From Surgery : Informed Consent was obtained. Please call to register and schedule Per Admission Screening appointment for Upcoming Surgery. It is important to have a Per Admission Appointment to assure your safet y during anesthesia and surgery. Ask for Reese Aranda Once you have a blue surgery folder, CALL between 8:00 AM and 4:30 PM to sche dule a per admission appointment for your up coming surgery. It is important to have this ap pointment to assure your safety during anesthesia and surgery. What Do you need to bring to Registration a/ Per Admission Appointment? 1. You blue folder 2. A complete list of your Medication 3. A compete list of prior surgery 4. A list of questions you might have How long will the Registration a/ Per Admission Appointment take ? 1. Approximately 15-30 minutes. What will happen during you Registration a/ Per Admission Appointment? 1. Interview and teaching with A Registered Nurse specially trained in Per-Operative Medicine. 2.Opportuniry to ask questions and receive answer about your surgery. 3. Reveive Per-Op instructions ( how to perpare for your surgery. IF YOU HAVE A PACEMAKER You MUST receive a cardiac clearance from your sports physiotherapist prior to surgery. Family members (wheelchair van driver) need to stay here during the procedure and can leave once patient i s discharged. Location: [facility] ([address] [place] [address] [place] [address]) Time: You will receive a call around 2:00PM the afternoon before your surgery to receive an arrival time ( the Tuesday before if your surgery is on a Tuesday). If you havent received a time by 4:00PM please call . DAY OF SURGERY: What do I need to do before I come to the Surgery Center for my surgery? 1. DO NOT EAT OR DRINK ANYTHING AFTER MIDNIGHT THE NIGHT BEFORE YOUR SURGERY. 2. Follow all per-op instructions 3. Prepare your home before you come to the surgery center for surgery. 4. WEAR CLOTHING APPROPRIATE TO YOUR SURGERY TYPE. Need to cancel or reschedule your surgery, or post-op? Please call . If you have any surgery related questions or concerns, please contact our Candy Mixer Christine parikh at PLAN : Proceed with Surgery on 04/27/2019/. 4 month Follow-up From Surgery : Informed Consent was obtained. : Please call to register and schedule Per Admission Screening appointment fo r Upcoming Surgery. It is important to have a Per Admission Appointment to assure your safe ty during anesthesia and surgery. Ask for Reese Aranda Once you have a blue surgery folder, CALL between 8:00 AM and 4:30 PM to sche dule a per admission appointment for your up coming surgery. It is important to have this ap pointment to assure your safety during anesthesia and surgery. What Do you need to bring to Registration a/ Per Admission Appointment? 1. You blue folder 2. A complete list of your Medication 3. A compete list of prior surgery 4. A list of questions you might have How long will the Registration a/ Per Admission Appointment take ? 1. Approximately 15-30 minutes. What will happen during you Registration a/ Per Admission Appointment? 1. Interview and teaching with A Registered Nurse specially trained in Per-Operative Medicine. 2.Opportuniry to ask questions and receive answer about your surgery. 3. Reveive Per-Op instructions ( how to perpare for your surgery. IF YOU HAVE A PACEMAKER You MUST receive a cardiac clearance from your sports physiotherapist prior to surgery. Family members (wheelchair van driver) need to stay here during the procedure and can leave once patient is discharged. Location: [facility] ([address] [place] [address] [place] [address]) Time: You will receive a call around 2:00PM the afternoon before your surgery to receive an arrival time ( the Tuesday before if your surgery is on a Tuesday). If you havent received a time by 4:00PM please call . DAY OF SURGERY: What do I need to do before I come to the Surgery Center for my surgery? 1. DO NOT EAT OR DRINK ANYTHING AFTER MIDNIGHT THE NIGHT BEFORE YOUR SURGERY. 2. Follow all per-op instructions 3. Prepare your home before you come to the surgery center for surgery. 4. WEAR CLOTHING APPROPRIATE TO YOUR SURGERY TYPE. Need to cancel or reschedule your surgery, or post-op? Please call . If you have any surgery related questions or concerns, please contact our Candy Mixer Christine parikh at documented in this encounter Progress Notes Pedro Green DO - 03/26/2019 10:30 AM PSTFormatting of this note might be different fr om the original. [facility] Urology Primary Care Provider: No Physician on file History Obtained From: The Patient Primary Care Physician: No Physician on file CHIEF COMPLAINT: 4 Month Follow-up with Obstruction of Left Ureter Chief Complaint Patient presents with Follow-up HISTORY OF PRESENT ILLNESS INTERVAL: 03/26/2019 Dr Pedro Green DO The patient is a 58 y.o. female with significant past medical history below who presents fo r follow up. She is doing well overall. She notes she is on much lower doses of her pain medications. She has noted more stent related urgency. This is still somewhat mild. She denies significa nt hematuria, UTI, AUR, stones. She notes her PET in February was clear of any recurrences of her cancer. INTERVAL: 11/21/2018 Dr Pedro Green DO The [...] Green DO The patient is a 57 y.o.femalewith significant past medical history below who presents for hydronephrosis. She has a history of biliary cancer, diagnosed in 2011. She underwent multiple bouts of c hemotherapy. 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 She had a s tent placed in 2017 due to extrinsic compression. She has tolerated this well. Her last exchange was at [facility] during a septic episode. Her last CT showed remission. She notes occasional hematuria. She denies stone disease. She denies smoking history. She denies family Hx of malignancy. History: Past Medical History: Diagnosis Date Chronic kidney disease Gallbladder carcinoma (HCC) Past Surgical History: Procedure Laterality Date SECTION COLONOSCOPY CYSTOSCOPY CYSTOSCOPY INSERTION/REMOVAL STENT/STONE Left 11/29/2018 Procedure: CYSTOSCOPY URETERAL STENT stent removal and replacement; Surgeon: Pedro coker DO; Location: [facility] MAIN OR HYSTERECTOMY LIVER SURGERY OTHER SURGICAL HISTORY UNLISTED PROCEDURE ARTHROSCOPY OTHER SURGICAL HISTORY MEDIPORT INSERTION SINGLE OTHER SURGICAL HISTORY HARDWARE PRESENT OTHER SURGICAL HISTORY Left 07/05/2018 CYSTOSCOPY W/ URETERAL STENT PLACEMENT - Procedure: CYSTOSCOPY - STENT; Surgeon: Pedro Green DO; Location: [facility] MAIN OR; Service: Urology; Laterality: Left; stent exchange Family History Problem Relation Age of Onset Malig hypertherm Neg Hx Social History Socioeconomic History Marital status: Spouse name: Not on file Number of children: Not on file Years of education: Not on file Highest education level: Not on file Tobacco Use Smoking status: Former Smoker Smokeless tobacco: Never Used Substance and Sexual Activity Alcohol use: Not Currently Allergies: Allergies Allergen Reactions Sulfa Antibiotics Rash [...] and Days 9, 10 of each cycle. (Patient not taking: Reported on ) 20 tablet 5 docusate sodium (STOOL SOFTENER) 100 mg capsule Take 100 mg by mouth 2 times daily. fentaNYL (DURAGESIC) 100 mcg/hr Apply 1 patch to skin every seventy-two hours. Please r emove old patch prior to placing a new one. fentaNYL (DURAGESIC) 75 mcg/hr apply 1 patch topically every 72 hours 0 GRANIX 300 MCG/0.5ML injection 0 HYDROcodone-acetaminophen (NORCO) 7.5-325 mg per tablet Take 7.5 mg by mouth every 4 ho urs as needed. HYDROmorphone (DILAUDID) 1 MG/ML LIQD Take by mouth every three hours as needed. Indica tions: unknown HYDROmorphone (DILAUDID) 1 MG/ML LIQD 0 HYDROmorphone (DILAUDID) 2 mg tablet Take 2-3 tablets by mouth every 3 hours as needed. (Patient not taking: Reported on 11/29/2018) 150 tablet 0 LORazepam (ATIVAN) 1 mg tablet take 1 tablet by mouth every 4 hours if needed FOR NAUSE A, ANXIETY OR RESTLESSNESS 60 tablet 0 LORazepam (ATIVAN) 1 mg tablet Take 1.5 mg by mouth. LORazepam (ATIVAN) 1 mg tablet Take 1 tablet by mouth every 4 hours as needed (nausea, anxiety or restlessness). (Patient not taking: Reported on 11/29/2018) 40 tablet 5 LORazepam (ATIVAN) 2 MG [...] eight hours as needed f or nausea (Patient not taking: Reported on 11/29/2018) 50 tablet 3 ondansetron (ZOFRAN) 8 MG tablet Take one tablet orally twice a day for two days after chemotherapy, then every 8 hours as needed for nausea. (Patient not taking: Reported on 11/14) 30 tablet 5 OXYCONTIN 20 MG ER abuse-deterrent tablet Take 2 tablets by mouth every 12 hours. (Janis ent not taking: Reported on 11/29/2018) 120 tablet 0 phenazopyridine (PYRIDIUM) 100 mg tablet Take 1 tablet by mouth 3 times daily as needed for Pain. (Patient not taking: Reported on 03/26/2019) 20 tablet 0 Probiotic Product (PROBIOTIC DAILY PO) Take by mouth Daily. promethazine (PHENERGAN) 25 mg tablet No current facility-administered medications for this visit. REVIEW OF SYSTEMS Review of Systems Constitutional: Negative for chills, fever and weight loss. HENT: Negative for ear pain. Eyes: Negative for blurred vision and pain. Respiratory: Negative for shortness of breath. Cardiovascular: Negative for chest pain. Gastrointestinal: Negative for abdominal pain, nausea and vomiting. Genitourinary: See HPI Musculoskeletal: Negative for myalgias. Skin: Negative for itching and rash. Neurological: Negative for dizziness, focal weakness and headaches. Endo/Heme/Allergies: Does not bruise/bleed easily. Psychiatric/Behavioral: Negative. Negative for depression. PHYSICAL EXAM Vital Signs: BP 108/71 | Pulse 89 | Temp 36.2 C (97.1 F) (Oral) | Ht 1.6 m (5' 3") | Wt 69 kg (1 52 lb 3.2 oz) | SpO2 98% | BMI 26.96 kg/m Physical Exam Constitutional: Appearance: She is well-developed. HENT: Head: Atraumatic. Eyes: Conjunctiva/sclera: Conjunctivae normal. Pupils: Pupils are equal, round, and reactive to light. Neck: Musculoskeletal: Normal range of motion. Cardiovascular: Rate and Rhythm: Normal rate. Pulmonary: Effort: Pulmonary effort is normal. Abdominal: Palpations: Abdomen is soft. Genitourinary: Comments: No CVA tenderness to palpation Musculoskeletal: Normal range of motion. Skin: General: Skin is warm and dry. Neurological: Mental Status: She is alert and oriented to person, place, and time. Psychiatric: Behavior: Behavior normal. DATA TESTOSTERONE: No results found for: TESTOSTERONE CBC: Lab Results Component Value Date WBC 6.4 02/02/2017 RBC 3.80 02/02/2017 HGB 11.7 02/02/2017 HCT 34.4 02/02/2017 MCV 90.4 02/02/2017 MCH 30.9 02/02/2017 MCHC 34.1 02/02/2017 PLT 173 02/02/2017 MPV 7.7 02/02/2017 CMP: Lab Results Component Value Date NA 138 02/02/2017 K 3.7 02/02/2017 CL 103 02/02/2017 CO2 28 02/02/2017 ANIONGAP 7 02/02/2017 BUN 17 02/02/2017 BILITOT 0.7 02/02/2017 AST 25 02/02/2017 ALT 13 02/02/2017 EGFR >60 03/19/2013 BMP: Lab Results Component Value Date NA 138 02/02/2017 K 3.7 02/02/2017 CL 103 02/02/2017 CO2 28 02/02/2017 ANIONGAP 7 02/02/2017 BUN 17 02/02/2017 EGFR >60 03/19/2013 BUN/Creatinine: Lab Results Component Value Date BUN 17 02/02/2017 LDH: Lab Results Component Value Date LDH 151 02/02/2017 LDH 152 03/19/2013 U/A: No results found for: CLARITYU, MEROPENEM, LEUKOCYTESUR, UROBILINOGEN, PHUR, BLOODU, KETONES, BILIRUBINUR, GLUCOSEU, EPIS HgBA1c: No results found for: LABGLYC ASSESSMENT & PLAN 1. Gallbladder cancer, carcinoma (HCC) Case Request - OR/ENDO/ASC/OB: CYSTOSCOPY URETERAL STENT stent removal/replacement 2. Obstruction of left ureter Case Request - OR/ENDO/ASC/OB: CYSTOSCOPY URETERAL STENT stent removal/replacement The patient and I had a long discussion about the presenting symptoms, history, and underly ing factors. At this point, her stent has been in ~4 months. Last time this was exchanged, there were s ome calcifications. We discussed additional options for decompression. However, she is con tent with her stent. We did discuss exchange. We discussed the risks of exchange in detail including bleeding, infection, prolonged giselle terization, ureteral perforation, retention, urgency, bladder pain, anesthetic risks (cardia c events, arrhythmias, ) in detail. After long discussion, he wishes to proceed with kermit caballero as above. We will plan on left stent exchange in the near future. Pedro Green DO 03/26/2019 documented in this encounter Plan of Treatment +--------+---------+ + + + | Date | Type | Specialty | Care Team | Description | +--------+---------+ + + + | 09/17/ | Office | Urology | Pedro Green, | | 2019 | Visit | | DO [address] [place] [address] | | | | | | [place] [address] | | | | | | [phone] | | | | | | | | +--------+---------+ + + + documented as of this encounter Visit Diagnoses + + | Diagnosis | + + | Gallbladder cancer, 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
--- OUTSIDE RECORDS SUMMARY | ~2019-07-09 | XMS | Encounter Summary ---
Demographics + + + | Address | [address] | | | [place] [address] | + + + | Home Phone | | + + + | Preferred Language | Unknown | + + + | Marital Status | Single | + + + | Faith Affiliation | NON | + + + | Race | White | + + + | Ethnic Group | Not or | + + + Author + + + | Author | [facility] | + + + | Organization | [facility] | + + + | [...] Team Providers + +------+ + | Care Mid Level Practitioner Name | Role | Phone | + +------+ + | Tomasa Wagner | PCP | | + +------+ + Reason for Visit + + + | Reason | Comments | + + + | Follow-up encounter | | + + + | Education | Gemzar/Cisplatin | + + + Office Visit - E/M Services (Routine) +--------+--------+ + + + + | Status | Reason | Specialty | Diagnoses / | Referred By | Referred To | | | | | Procedures | Contact | Contact | +--------+--------+ + + + + | Closed | | Hematology & | Diagnoses | Degeest, | Matilda, | | | | Oncology | Malignant | MD Miguel | Elva Coello MD | | | | | neoplasm of | [address]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 | Frances[address]ra | [facility] [place] | | | | | (HCC) | [address] | [address] | | | | | Procedures | [place] | [place] | | | | | CONSULT TO | [address] | [address] Phone: | | | | | HEMATOLOGY / | Phone: | [phone] | | | | | ONCOLOGY | [phone] | Fax: | | | | | PRACTICE | Fax: | [phone] | | | | | | [phone] | | +--------+--------+ + + + + Encounter Details +--------+---------+ + + + | Date | Type | Department | Care Team | Description | +--------+---------+ + + + | 06/26/ | Office | [facility] | Elva Grey, | 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 | Clinics at S | [address] | (HCC) (Primary Dx) | | | | [facility] | [facility] [address] | | | | | [facility] and | [place] [address] | | | | | Healing [address] | [phone] | | | | | [place], [place] | | | | | | [address] | | | | | | [phone] | | | +--------+---------+ + + + [...] + + + | Blood Pressure | 99/60 | 06/26/2014 10:41 AM | | | | | PDT | | + + + + + | Pulse | 65 | 06/26/2014 10:41 AM | | | | | PDT | | + + + + + | Temperature | 36.5 C (97.7 F) | 06/26/2014 10:41 AM | | | | | PDT | | + + + + + | Respiratory Rate | 16 | 06/26/2014 10:41 AM | | | | | PDT | | + + + + + | Oxygen Saturation | 99% | 06/26/2014 10:41 AM | | | | | PDT | | + + + + + | Inhaled Oxygen | - | - | | | Concentration | | | | + + + + + | Weight | 76.7 kg (169 lb 3.2 | 06/26/2014 10:41 AM | | | | oz) | PDT | | + + + + + | Height | 159.4 cm (5' 2.75") | 06/26/2014 10:41 AM | | | | | PDT | | + + + + + | Body Mass Index | 30.21 | 06/26/2014 10:41 AM | | | | | PDT | | + + + + + documented in this encounter Progress Notes Emiliana Elder RN - 06/26/2014 11:26 AM PDTPer provider instructions I reviewed the patien t information paperwork for Cisplatin and Gemzar with Aura and her . She took the written information with her. Elva Zhang Md - 06/26/2014 9:47 AM PDT (The format of this note is intended to facilitate more efficient communication with other health care providers involved in the care of this patient.) Oncology Assessment: T2N1M0 gallbladder cancer, s/p R0 resection - 04/12/12 CT No evidence of residual or metastatic disease following cholecystectomy. 04/28/12 Diagnostic laparoscopy with biopsies, intraoperative ultrasound, partial segment 4B and 5 liver resection (gallbladder fossa with en bloc portal lymphadenectomy). Pathology: Segment 7, biopsy: - Liver parenchyma and fibrous tissue with chronic inflammation and foca l necrosis, negative for malignancy C: Abdominal wall overlying, biopsy: - Fibrous tissue wi th surgical site changes, negative for malignancy - Unremarkable skeletal muscle D: Cystic d uct, excision: - Cystic duct negative for dysplasia and malignancy E: Gallbladder bed, resec tion: - Liver parenchyma with surgical site changes, negative for malignancy - Metastatic ca rcinoma in two of eight lymph nodes (2/8), with largest deposit 0.5 cm F: Gallbladder bed, r esection: - Liver parenchyma with surgical site changes, negative for malignancy - Adjuvant chemotherapy recommended: Culloden/Cap for 4 cycles then restaging - 09/13/12-10/23/12 Chemoradiation with Cape - Treated locally by Dr Najera - CT on 03/18/2014 which noted a left ovarian cyst measuring 5.5 x 5.8 x 2.6 cm - Referred to Dr Henderson in [employer] [facility] - 06/07/14 To OR for Exploratory laparotomy, total abdominal hysterectomy, bilateral salping o-oophorectomy, pelvic and periaortic lymphadenectomy, omentectomy, surgical staging. 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 5 cm - Tumor extensively involves ovarian and fallopian tube stroma - Multifocal angiolymphatic involvement present - Exo/endocervix with squamous metaplasia - Inactive endometrium - Myometrium with no diagnostic abnormality E: Omentum, omentectomy: - Fibroadipose connective tissue with no diagnostic abnormality - Negative for malignancy F: Left periaortic lymph nodes, dissection: - Four lymph nodes with no diagnostic abnormality (0/4) - Negative for malignancy G: Left pelvic lymph nodes, dissection: - Five lymph nodes with no diagnostic abnormality (0/5) - Negative for malignancy H: Left pelvic side wall, excision: - Peritoneal fibroadipose connective tissue with no diagnostic abnormality - Negative for malignancy I: Cul de sac peritoneum, excision: - 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 Additionally, immunohistochemical staining on the left ovarian tumor shows the cells to be positive for CDX-2, consistent with gastrointestinal origin. Plan: 1. Gallbladder cancer Primary site: Gallbladder Staging method: AJCC 7th Edition Clinical: Stage IIIB (T2, N1, M0) - Signed by Elva Grey MD on 05/17/2012 Pathologic: Stage IIIB (T2, N1, cM0) - Unsigned Summary: Stage IIIB (T2, N1, cM0) - I last saw her 2 yrs ago, in the interim she has had pelvic recurrence and was taken to t he OR and was resected - disease noted as recurrent GB cancer with disease in B ovaries, sigmoid mesentery, cul de sac. Negative sites include, pelvic washings, omentum, periaortic nodes, pelvic nodes, pelvic si de wall - the pathology report was discussed at length, no gross disease left at the end of surgery - there is no standard "adjuvant" in this setting, there may be a chance that microscopic m etastatic disease can benefit from chemotherapy at this time, but this is unproven and this was discussed at length - she would like to be aggressive with her care and would like to get chemotherapy if there is a chance of benefit - recommend 1st line chemotherapy, Culloden/Cisplatin would be standard, no clinical trials open at [facility] for 1st line therapy, and would not be eligible for trials as likely not measurable disease at this time - can get tumor mutation profiling for consideration of possible INV trials in the future a t the time of next recurrence - recommend restaging after 3 cycles, also recommend new baseline imaging as current imagin g now 4 weeks old - if not disease over the next few months with chemotherapy, would stop chemo at 6 months a nd observe until recurrence. - she would like to return to the care of Dr Najera and I can see her back prn - logistics of chemo discussed, the toxicities, the recommendation for port placement No orders of the defined types were placed in this encounter. No follow-up information. The patient is receiving chemotherapy which requires ongoing evaluation of toxicity due to cytotoxic therapy and assessment of disease status and disease related symptoms. Interval History: Aura Upton returns to clinic today for Chief Complaint Patient presents with Follow-up encounter Since the last clinic visit, she has recovered from surgery, eating well, incision is well healed, some post op pain, but managing with lidocaine patch. No fever, no chills, no SOB, no chest pain, no edema, good energy level, no complaints. Current Outpatient Prescriptions Medication Sig DOCUSATE CALCIUM (STOOL SOFTENER ORAL) Take 100 mg by mouth once daily as needed (const ipation). docusate sodium (COLACE) 100 mg oral capsule Take 1 capsule by mouth two times daily. enoxaparin 40 mg/0.4 mL subcutaneous syringe Inject 0.4 mL under the skin (SUBC) once d aily at noon. ibuprofen 600 mg oral tablet Take 1 tablet by mouth every six hours as needed. LACTOBACILLUS ACIDOPHILUS (PROBIOTIC ORAL) Take 1 capsule by mouth once daily. lidocaine 5 %(700 mg/patch) topical adhesive patch,medicated Apply 1 patch to skin once daily. Apply patch to most painful area; Patch may remain in place for up to 12 hours in an y 24-hour period. MULTIVIT &MINERALS/FERROUS FUM (MULTI VITAMIN ORAL) Take 1 tablet by mouth once daily. ondansetron ODT 4 mg oral tablet,disintegrating Dissolve 1 tablet on tongue every twel ve hours as needed. oxyCODONE, immediate release, 5 mg oral tablet Take 1-2 tablets by mouth every six hour s as needed. No current facility-administered medications for this visit. Review of Systems: Remaining 10 systems reviewed, see scanned document Fam Hx: reviewed, see scanned document Physical Examination: There were no vitals taken for this visit. ECOG PS: 0 Gen: Well-developed, well-nourished, ambulatory, in no distress Skin: No significant rash or ecchymoses HEENT: Oropharynx is clear with no exudates or erythema. No scleral icterus. Nodes: No pathologically enlarged nodes in the bilateral cervical, supraclavicular areas Chest: Clear to auscultation and percussion bilaterally, no rales, wheezes or rhonchi CV: Regular rate and rhythm, no murmurs or rubs Abd: Soft, non-tender, non-distended, normal bowel sounds, no hepatosplenomegaly, healed m idline incision Extr: No edema, calf pain Labs: Lab Results Component Value Date NA 138 06/09/2014 K 3.8 06/09/2014 CL 103 06/09/2014 BICARB 29 06/09/2014 BUN 6 06/09/2014 CR 0.78 06/09/2014 GLU 91 06/09/2014 CA 8.2 06/09/2014 AST 26 05/28/2014 ALT 27 05/28/2014 AP 147 05/28/2014 TBILI 0.6 05/28/2014 TP 7.0 05/28/2014 ALB 2.4 06/09/2014 Lab Results Component Value Date WBC 6.62 06/09/2014 HB 10.4 06/09/2014 HCT 31.9 06/09/2014 PLT 175 06/09/2014 MCV 90.9 06/09/2014 RDW 43.0 06/09/2014 Lab Results Component Value Date CEA 1.1 04/12/2012 Lab Results Component Value Date CA199 10 04/12/2012 Imaging: Last 2 outside CTs were personally reviewed, agree with report documented in this encou nter Plan of Treatment Not on filedocumented as of this encounter Procedures + +--------+ + + + | Procedure Name | Priori | Date/Time | Associated Diagnosis | Comments | | | ty | | | | + +--------+ + + + | ONCOLOGY PATHWAYS | Routin | 07/01/2014 | | Results for this | | TREATMENT DECISION | e | | | procedure are in the | | | | | | results section. | + +--------+ + + + documented in this encounter Results ONCOLOGY PATHWAYS TREATMENT DECISION (07/01/2014) + + + + + + | Component | Value | Ref Range | Performed | Pathologist | | | | | At | Signature | + + + + + + | ONCOLOGY | [Other Dx] - Non Pathway | | [facility] | | | PATHWAYS | Diagnosis | | ONCOLOGY | | | TREATMENT | | | PATHWAYS | | | PLAN | | | | | | REGIMEN | | | | | + + + + + + + + | Specimen | + + | | + + + +---------+ + + | Performing | Address | City/State/Zipcode | Phone Number | | Organization | | | | + +---------+ + + | [facility] | | | | | [facility] | | | | + +---------+ + + documented in this encounter Visit Diagnoses + + | Diagnosis | + + | Gallbladder cancer (HCC) - Primary Malignant neoplasm of gallbladder | + + documented in this encounter
--- OUTSIDE RECORDS SUMMARY | ~2019-07-09 | XMS | Encounter Summary ---
Demographics + + + | Address | [address] | | | [place] [address] | + + + | Home Phone | | + + + | Preferred Language | Unknown | + + + | Marital Status | Single | + + + | Latter-Day Affiliation | NON | + + + | Race | White | + + + | Ethnic Group | Not or | + + + Author + + + | Author | [facility] | + + + | Organization | [facility] | + + + | [...] Team Providers + +------+ + | Care It Sales Representative Name | Role | Phone | + +------+ + | Prudencio Isaac MD | PCP | Unavailable | + +------+ + Reason for Visit + + + | Reason | Comments | + + + | Follow-up encounter | | + + + Encounter Details +--------+---------+ + + + | Date | Type | Department | Care Team | Description | +--------+---------+ + + + | 07/10/ | Office | Otolaryngology | Virgilio Buck MD | Perforation of Nasal | | 2008 | Visit | Facial Plastics & | [address] | Septum; Nasal | | | | Reconstructive | Velma Whitfield Howe, | Septal Defect | | | | Services at [facility] | [place] [address] | | | | | [address] | [phone] | | | | | Mailcode: CH5E | | | | | | [facility] | | | | | | and Healing, | | | | | | Building [address], | | | | | | Floor [place], [place] | | | | | | [address] | | | | | | [phone] | | | +--------+---------+ + + + Social History + + + +--------+------+ | Tobacco Use | Types | Packs/Day | Years | Date | | | | | Used | | + + + +--------+------+ | Former Smoker | Cigarettes | | | | + + + +--------+------+ + + | Comments: 2007 | + + + + +---------+ + [...] documented as of this encounter Progress Notes Virgilio Buck MD - 07/10/2008 1:52 PM PDTClinic: Facial Plastic and Reconstructive Surgery Cl rosalba Upton is a 47 y.o. female who comes back for splint removal. She is one week ou t from repair septal perforation with AlloDerm graft I removed her external dressing. She is doing well and able to breathe out of her nose now with only a bit of restriction. The n ose looks good and the perforation is closed at this time. I reassured her regarding swelli ng. She is still having some pain and asked for and received another prescription for pain medication. She also asked for and was given a work release for her recovery last week. I asked her to come back at the 2 month cassidy for followup. Virgilio Buck MD FACS Professor Facial Plastic and Reconstructive Surgery Dept. of Otolaryngology/Head and Neck Surgery [facility] [email or web address] documented in this encounte r Plan of Treatment Not on filedocumented as of this encounter Visit Diagnoses + + | Diagnosis | + + | Perforation of nasal septum Other diseases of nasal cavity and sinuses | + + | Nasal septal defect Other diseases of nasal cavity and sinuses | + + documented in this encounter"
--- OUTSIDE RECORDS SUMMARY | ~2019-07-09 | XMS | Encounter Summary ---
Demographics + + + | Address | [address] | | | [place] [address] | + + + | Home Phone | | + + + | Preferred Language | Unknown | + + + | Marital Status | | + + + | Sikh Affiliation | Unknown | + + + | Race | Unknown | + + + | Ethnic Group | Unknown | + + + Author + + + | Author | [facility] | | | and [place] | + + + | Organization | [facility] | | | and [place] | + + + | Address | Unknown | + + + | Phone | Unavailable | + + + Support + + + + + | Name | Relationship | Address | Phone | + + + + + | Poncho Oquendo | ECON | [address] | | | | | [place] | | | | | [address] | | + + + + + | Marta Upton | ECON | [place] | | | | | [address] | | + + + + + Care Team Providers + +------+ + | Care Outsole Rounder Name | Role | Phone | + +------+ + | Valeriy Carmona DO | PCP | | + +------+ + Encounter Details +--------+ + + + + | Date | Type | Department | Care Team | Description | +--------+ + + + + | 07/05/ | Hospital | [facility] | Pedro Green, | | | 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 | [facility] | DO [address] | | | | | [address] | [place] [address] | | | | | [place], [place] | [phone] | | | | | [address] | | | | | | [phone] | | | +--------+ + + + [...] + + + | Blood Pressure | 107/54 | 07/05/2018 3:38 PM | | | | | PDT | | + + + + + | Pulse | 83 | 07/05/2018 3:38 PM | | | | | PDT | | + + + + + | Temperature | 36.4 C (97.6 F) | 07/05/2018 3:38 PM | | | | | PDT | | + + + + + | Respiratory Rate | 16 | 07/05/2018 3:38 PM | | | | | PDT | | + + + + + | Oxygen Saturation | - | - | | + + + + + | Inhaled Oxygen | - | - | | | Concentration | | | | + + + + + | Weight | 62.6 kg (138 lb 0.2 | 07/05/2018 3:38 PM | | | | oz) | PDT | | + + + + + | Height | 160 cm (5' 3") | 07/05/2018 3:38 PM | | | | | PDT | | + + + + + | Body Mass Index | 24.45 | 07/05/2018 3:38 PM | | | [...] GRANIX 300 | | | 0 | 01/21/20 | | | MCG/0.5ML injection | | [...] documented as of this encounter Progress Notes Conversion Transaction, Provider Unknown - 07/05/2018 3:41 PM PDTFormatting of this note m ight be different from the original. Nurse Progress Note by Erika Lorenzana RN at 07/05/181540 Author: Erika Lorenzana RN Service: (none) Author Type: Registered Nurse Filed: 07/05/18 5559 Date of Service: 07/05/181540 Status: Signed Circular Saw Filer: Erika Lorenzana, RN (Registered Nurse) Discharge instructions, including signs and symptoms of surgical site infection, discussed with patient and family. Prescriptions given and faxed to Rx Pharmacy. Family will go pick u p before heading home. Side effects also explained. Patient and family state understanding . No further questions. Vital signs stable. Discharged per order. Erika Lorenzana RN 07/05/2018 3:43 PM docume nted in this encounter Plan of Treatment +--------+---------+ + + + | Date | Type | Specialty | Care Team | Description | +--------+---------+ + + + | 09/17/ | Office | Urology | Pedro Green, | | | 2019 | Visit | | DO [address] | | | | | | [place] [address] | | | | | | [phone] | | | | | | | | +--------+---------+ + + + documented as of this encounter Procedures + +--------+ + + + | Procedure Name | Priori | Date/Time | Associated Diagnosis | Comments | | | ty | | | | + +--------+ + + + | FL C ARM < 1 HOUR | Routin | 07/05/2018 | | Results for this | | | e | 2:32 PM | | procedure are in the | | | | PDT | | results section. | + +--------+ + + + documented in this encounter Results FL C-Arm < 1 Hour (07/05/2018 2:32 PM PDT) + + | Specimen | + + | | + + + + + | Narrative | Performed At | + + + | This is a non-reportable procedure without a radiologist report and | | | is used for image storage only. Please review the [place] procedure | | | report for details on the procedure. | | + + + + + | Procedure Note | + + | Hardy Wyatt - 09/26/2018 11:35 PM PDT This is a non-reportable procedure | | without a radiologist report and isused for image storage only.Please review the [place] | | procedure report for details on the procedure. | + + documented in this encounter Visit Diagnoses Not on filedocumented in this encounter
--- OUTSIDE RECORDS SUMMARY | ~2019-07-09 | XMS | Encounter Summary ---
Demographics + + + | Address | [address] | | | [place] [address] | + + + | Home Phone | | + + + | Preferred Language | Unknown | + + + | Marital Status | Single | + + + | Worship Affiliation | NON | + + + | Race | White | + + + | Ethnic Group | Not or | + + + Author + + + | Author | [facility] | + + + | Organization | [facility] | + + + | Address | [...] Team Providers + +------+ + | Care Assistant Sales Center Manager Name | Role | Phone | + +------+ + | Tomasa Wagner | PCP | | + +------+ + Encounter Details +--------+ + + + + | Date | Type | Department | Care Team | Description | +--------+ + + + + | 08/22/ | Telephone | [facility] | Tai Stanton, | | | 2012 | | [facility] at [facility] [address] | [address] | | | | | [address] | [address] | | | | | Mailcode: Center | [place], [place] | | | | | [facility] and | [address] | | | | | Healing, [address] | [phone] | | | | | [place], [place] | | | | | | [address] | | | | | | [phone] | | | +--------+ + + + [...]
--- OUTSIDE RECORDS SUMMARY | ~2019-07-09 | XMS | Encounter Summary ---
Demographics + + + | Address | [address] | | | [place] [address] | + + + | Home Phone [...] Team Providers + +------+ + | Care Pocket Setter Lockstitch Name | Role | Phone | + +------+ + | Tomasa Wagner | PCP | | + +------+ + Reason for Visit + + + | Reason | Comments | + + + | Tumor Board | | | Recommendation | | + + + Encounter Details +--------+ + + + + | Date | Type | Department | Care Team | Description | +--------+ + + + + | 06/14/ | Documentati | [facility] | Roger Woods MD | Tumor Board | | 2015 | on | [facility] | [address] | Recommendation | | | | [address] | [facility], | | | | | [address] | [place] [address] | | | | | Pavilion, [facility] floor | [phone] | | | | | [place], [place] | | | | | | [address] | | | | | | [phone] | | | +--------+ + + + [...]
--- OUTSIDE RECORDS SUMMARY | ~2019-07-09 | XMS | Encounter Summary ---
Demographics + + + | Address | [address] | | | [place] [address] | + + + | Home Phone | | + + + | Preferred Language | Unknown | + + + | Marital Status | | + + + | Christianity Affiliation | Unknown | + + + | Race | Unknown | + + + | Ethnic Group | Unknown | + + + Author + + + | Author | [facility] | | | and Eduardoana | + + + | Organization | [facility] | | | and Eduardoana | + + + | Address | Unknown | + + + | Phone | Unavailable | + + + Support + + + + + | Name | Relationship | Address | Phone | + + + + + | Poncho Oquendo | ECON | [address] | | | | | [place], [place] | | | | | [address] | | + + + + + | Marta Upton | ECON | [place] | | | | | [address] | | + + + + + Care Team Providers + +------+ + | Care Oil Burner Mechanic Name | Role | Phone | + +------+ + | Valeriy Carmona DO | PCP | | + +------+ + Reason for Visit + + + | Reason | Comments | + + + | IDT Note | | + + + Encounter Details +--------+ + + + + | Date | Type | Department | Care Team | Description | +--------+ + + + + | 06/26/ | Telephone | [facility] | Marcelina Johnson, | IDT Note | | 2014 | | MED CTR CHEMO | RN | | | | | INFUSION [address] | | | | | | [place], | | | | | | [place] [address] | | | | | | [phone] | | | +--------+ + + + [...] [address] | | | | | | [place] [address] | | | | | | [phone] | | | | | | | | +--------+---------+ + + + documented as of this encounter Visit Diagnoses Not on filedocumented in this encounter"
--- OUTSIDE RECORDS SUMMARY | ~2019-07-09 | XMS | Encounter Summary ---
Demographics + + + | Address | [address] | | | [place] [address] | + + + | Home Phone | | + + + | Preferred Language | Unknown | + + + | Marital Status | | + + + | Confucianist Affiliation | Unknown | + + + | Race | Unknown | + + + | Ethnic Group | Unknown | + + + Author + + + | Author | [facility] | | | and Eduardoana | + + + | Organization | [facility] | | | and Eduardoana | + + + | Address | Unknown | + + + | Phone | Unavailable | + + + Support + + + + + | Name | Relationship | Address | Phone | + + + + + | Poncho Oquendo | ECON | [address] | | | | | [place] [facility] [place] | | | | | [address] | | + + + + + | Marta Upton | ECON | [place], [place] | | | | | [address] | | + + + + + Care Team Providers + +------+ + | Care Freight Separator Name | Role | Phone | + +------+ + | No, Physician | PCP | Unavailable | + +------+ + Encounter Details +--------+ + + + + | Date | Type | Department | Care Team | Description | +--------+ + + + + | 04/22/ | Preadmit | [facility] | | | | 2019 | Visit | [facility] | | | | | | CENTER PREADMISSION | | | | | | [facility] [address] | | | | | | [place] | | | | | | [address] | | | | | | [phone] | | | +--------+ + + + [...] + + + + | Weight | 65.8 kg (145 lb) | 04/23/2019 3:57 PM | | | | | PDT | | + + + + + | Height | 160 cm (5' 3") | 04/23/2019 3:57 PM | | | | | PDT | | + + + + + | Body Mass Index | 25.69 | 04/23/2019 3:57 PM | | | | | PDT [...] [address] | | | | | | [place] [address] | | | | | | [phone] | | | | | | | | +--------+---------+ + + + documented as of this encounter Visit Diagnoses Not on filedocumented in this encounter
--- OUTSIDE RECORDS SUMMARY | ~2019-07-09 | XMS | Encounter Summary ---
Demographics + + + | Address | [address] | | | [place] [address] | + + + | Home Phone | | + + + | Preferred Language | Unknown | + + + | Marital Status | | + + + | Caodaism Affiliation | Unknown | + + + | Race | Unknown | + + + | Ethnic Group | Unknown | + + + Author + + + | Author | [facility] | | | and Edaurdoana | + + + | Organization | [facility] | | | and Eduardoana | + + + | Address | Unknown | + + + | Phone | Unavailable | + + + Support + + + + + | Name | Relationship | Address | Phone | + + + + + | Poncho Oquendo | ECON | [address] | | | | | [place] | | | | | [address] | | + + + + + | Marta Upton | ECON | [place] | | | | | [address] | | + + + + + Care Team Providers + +------+ + | Care Laborer Brush Clearing Name | Role | Phone | + [...] Shabbir, | | | | | | Malignant | MD Louise | Reinaldo, | | | | | neoplasm of | [address] | Epifanio Soler MD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 | [address] [place] | [address] | | | | | (HCC) | [place] | [place] | | | | | Procedures | [address] | [place] | | | | | DC OFFICE | Phone: | [phone] Phone: | | | | | OUTPATIENT | [phone] | [phone] | | | | | VISIT 25 | Fax: | Fax: | | | | | MINUTES | [phone] | [phone] | +--------+--------+ + + + + Encounter Details +--------+ + + + + | Date | Type | Department | Care Team | Description | +--------+ + + + + | 05/21/ | Hospital | [facility] | Mathieu Langford | Gallbladder cancer, | | 2017 | Encounter | MED CTR MEDICAL | MD Epifanio [address] | carcinoma (HCC) | | | | ONCOLOGY CLINIC [address] | [address] | (Primary Dx) | | | | [address] [place] | [place] [address] | | | | | [place] [address] | [phone] | | | | | [phone] | | | +--------+ + + + [...] + + + | Blood Pressure | 108/61 | 05/21/2016 9:03 AM | | | | | PDT | | + + + + + | Pulse | 74 | 05/21/2016 9:03 AM | | | | | PDT | | + + + + + | Temperature | 37.1 C (98.8 F) | 05/21/2016 9:03 AM | | | | | PDT | | + + + + + | Respiratory Rate | 16 | 05/21/2016 9:03 AM | | | | | PDT | | + + + + + | Oxygen Saturation | 98% | 05/21/2016 9:03 AM | | | | | PDT | | + + + + + | Inhaled Oxygen | - | - | | | Concentration | | | | + + + + + | Weight | 79.6 kg (175 lb 8 | 05/21/2016 9:03 AM | | | | oz) | PDT | | + + + + + | Height | - | - | | + + + + + | Body Mass Index | 30.33 | 12/17/2014 3:06 PM | | | | | PST [...] documented as of this encounter Progress Notes Mathieu Langford MD - 05/21/2016 9:08 AM PDTFormatting of this note might be diff erent from the original. Hem-Onc Progress Note [facility] Pt. Name/Age/: Aura Upton 55 y.o. 1960 Med. Record Number: [id number] Date of admission: 05/21/2016 Assessment and plan: 1. Recurrent gallbladder carcinoma with hepatic metastasis Review of laboratory testing indicating stable hematopoietic and chemistry parameters allow ing go-ahead for today's next planned infusion gemcitabine and cisplatin given on days 1 and day 8 of a 21 day cycle. Reminder to patient concerning growth factor therapy set for 3 days following today's treat ment. Subjective: The patient chart and medications were reviewed in detail and the patient was seen and exam ined. Aura Upton is a 55 y.o. 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 Patient remarks that this new series of treat ments more toxic in terms of overall untoward effects. Patient has turned to natural pathic and diet supplements as a means of counteracting. Patient also benefiting from a program o f growth factor therapy given in the several days after treatment. PSH: Reviewed, no changes to admission H&P. Review of Systems: Constitutional: Reports energy level is low, varies. Reports night sweats intermittently. R eports appetite is at 50%. Reports weight loss of approximately 10 lbs since starting chemot herapy treatments. Denies high fevers, shaking chills, anorexia, nausea, vomiting. Ear, Nose, Mouth, Throat: Denies odynophagia, dysphagia, or tinnitus. Cardiovascular: Reports dyspnea on exertion with light activity. Denies shortness of breath , chest pain, palpitations or orthopnea. Respiratory: Denies cough, hemoptysis, or sputum production. Gastrointestinal: Reports occasional abdominal pain in abdomen "near liver". States she con trols constipation. Denies diarrhea, melena, or bright red blood per rectum. Genitourinary: Denies hematuria or dysuria. Musculoskeletal: Reports only having joint aches with neuopgen shots. Neurologic: Reports having headaches more frequently with white flashes in peripheral visio n. Denies numbness/tingling of the extremities. Endocrine: Reports swelling in bilateral lower extremities that decreases over night. Denie s heat/cold intolerance. Hematologic: Denies spontaneous bruising or bleeding. Integumentary: Denies rash, wounds or other skin concerns. Pain: Denies pain. Review of systems as above otherwise negative Scheduled Medications: Continuous Infusions: PRN Meds:. Allergy: Allergies Allergen Reactions Sulfa Antibiotics Rash Sulfacetamide Sodium Hives Objectives: Temp: 37.1 C (98.8 F) BP: 108/61 mmHg Pulse: 74 Resp: 16 SpO2: 98 % on Min/Max Temp past 24 hours:Temp Av.1 C (98.8 F) Min: 37.1 C (98.8 F) Max: 3 7.1 C (98.8 F) No intake or output data in the 24 hours ending 05/21/16 0908 Wt. Admission: Weight: 79.606 kg (175 lb 8 oz) Wt. Current: Weight: 79.606 kg (175 lb 8 oz) Physical Exam: Exam: General: The patient is alert and oriented. No acute distress. Psychiatric: Normal mood and affect. Diagnostic studies: Available data and images were reviewed personally. See reports. Significant results and findings are addressed here or in the Assessment and Plan. Recent Labs Lab 05/21/16 0835 WBC 5.0 HGB 9.5* HCT 28.2* PLT 131* Electronically signed by: Mathieu Langford, 05/21/2016 9:08 [facility] TIME SPENT 20 MIN. > 50% AT BEDSIDE, WITH FAMILY/PATIENT IN CARE AND PIGS FEET FINISHER ON UNIT AND CO ORDINATION OF CARE Portions of this chart may have been created with [employer] voice recognition software. Occasi onal wrong-word or sound-alike substitutions may have occurred due to the inherent stevenson itations of voice recognition software. Please read the chart carefully and recognize, using context, where these substitutions have occurred. Kalee Gee brian Dominguez RN - 05/21/2016 8:45 AM PDTREVIEW OF SYSTEMS Constitutional: Reports energy level is low, varies. Reports night sweats intermittently. R eports appetite is at 50%. Reports weight loss of approximately 10 lbs since starting chemot herapy treatments. Denies high fevers, shaking chills, anorexia, nausea, vomiting. Ear, Nose, Mouth, Throat: Denies odynophagia, dysphagia, or tinnitus. Cardiovascular: Reports dyspnea on exertion with light activity. Denies shortness of breath , chest pain, palpitations or orthopnea. Respiratory: Denies cough, hemoptysis, or sputum production. Gastrointestinal: Reports occasional abdominal pain in abdomen "near liver". States she con trols constipation. Denies diarrhea, melena, or bright red blood per rectum. Genitourinary: Denies hematuria or dysuria. Musculoskeletal: Reports only having joint aches with neuopgen shots. Neurologic: Reports having headaches more frequently with white flashes in peripheral visio n. Denies numbness/tingling of the extremities. Endocrine: Reports swelling in bilateral lower extremities that decreases over night. Denie s heat/cold intolerance. Hematologic: Denies spontaneous bruising or bleeding. Integumentary: Denies rash, wounds or other skin concerns. Pain: Denies pain. Note: Here for follow up with Dr. Langford, labs and 4 hour treatment. (Dr. Najera o ia). She is having concerns about an immune therapy that she is taking through subcu injecti ons. She has large bruise on right abdomen. My chart: active Katherine cumented in this encounter Plan of Treatment +--------+---------+ + + + | Date | Type | Specialty | Care Team | Description | +--------+---------+ + + + | 09/17/ | Office | Urology | Pedro Green, | | | 2019 | Visit | | DO [address] | | | | | | [place] [address] | | | | | | [phone] | | | | | | | | +--------+---------+ + + + documented as of this encounter Procedures + +--------+ + + + | Procedure Name | Priori | Date/Time | Associated Diagnosis | Comments | | | ty | | | | + +--------+ + + + | IMAGING REPORT - | | 06/10/2016 | | Results for this | | EXTERNAL SCAN | | 12:00 AM | | procedure are in the | | | | PDT | | results section. | + +--------+ + + + | LABS - EXTERNAL SCAN | | 06/10/2016 | | Results for this | | | | 12:00 AM | | procedure are in the | | | | PDT | | results section. | + +--------+ + + + | CA 19-9, QUANT | STAT | 05/21/2016 | Gallbladder | Results for this | | | | 8:35 AM | cancer, carcinoma | procedure are in the | | | | PDT | (HCC) | results section. | + +--------+ + + + | CBC WITH | STAT | 05/21/2016 | Gallbladder | Results for this | | DIFFERENTIAL | | 8:35 AM | cancer, carcinoma | procedure are in the | | | | PDT | (HCC) | results section. | + +--------+ + + + | LACTATE | STAT | 05/21/2016 | Gallbladder | Results for this | | DEHYDROGENASE | | 8:35 AM | cancer, carcinoma | procedure are in the | | | | PDT | (HCC) | results section. | + +--------+ + + + | CEA | STAT | 05/21/2016 | Gallbladder | Results for this | | | | 8:35 AM | cancer, carcinoma | procedure are in the | | | | PDT | (HCC) | results section. | + +--------+ + + + | COMPREHENSIVE | STAT | 05/21/2016 | Gallbladder | Results for this | | METABOLIC PANEL | | 8:35 AM | cancer, carcinoma | procedure are in the | | | | PDT | (HCC) | results section. | + +--------+ + + + documented in this encounter Results LABS - EXTERNAL SCAN (06/10/2016 12:00 AM PDT) + + + | Narrative | Performed At | + + + | Ordered by an | | | unspecified provider. | | + + + IMAGING REPORT - EXTERNAL SCAN (06/10/2016 12:00 AM PDT) + + + | Narrative | Performed At | + + + | Ordered by an | | | unspecified provider. | | + + + CA 19-9, Quant (05/21/2016 8:35 AM PDT) + + + + + + | Component | Value | Ref Range | Performed | Pathologist | | | | | At | Signature | + + + + + + | CA 19-9 | 14Comment: The Radha | 0 - 35 U/mL | REFERENCE | | | | steve immunoassay method | | [facility] | | | | is used. Results | | | | | | obtained withdifferent | | | | | | assay methods or kits | | | | | | cannot be used | | | | | | interchangeably.Testing | | | | | | Performed: [facility], [address] | | | | | | [address], [place] | | | | | | [address] | | | | + + + + + + + + | Specimen | + + | Blood specimen | | (specimen) | + + + + + + + | Performing | Address | City/State/Zipcode | Phone Number | | Organization | | | | + + + + + | [facility] | [address] | [place] [address] | [phone] | + + + + + Lactate Dehydrogenase (05/21/2016 8:35 AM PDT) + +---------+ + + + | Component | Value | Ref Range | Performed | Pathologist | | | | | At | Signature | + +---------+ + + + | LDH TOTAL | 198 (H) | 91 - 180 U/L | [facility] | | | | | | [facility]. [...] [address] | [place] | [phone] | | [facility] | | [address] | | | - LABORATORY | | | | + + + + + Comprehensive Metabolic Panel (05/21/2016 8:35 AM PDT) + + + + + + | Component | Value | Ref Range | Performed | Pathologist | | | | | At | Signature | + + + + + + | Na | 145 | 136 - 149 | [facility] | [...] + + + + | Cl | 105 | 98 - 109 mmol/L | [facility] [...] + + + | Anion Gap | 14 | 3 - 16 mmol/L | [facility] | | | | | | [facility] | | | | | | MEDICAL | | | | | | CENTER - | | | | | | LABORATORY | | + + + + + + | Glucose | 97 | 70 - 109 mg/dL | [facility] [...] + + | Creatinine | 0.97 | 0.60 - 1.30 | [facility] | | | | | mg/dL | [facility] | | | | | | MEDICAL | | | | | | CENTER - | | | | | | LABORATORY | | + + + + + + | eGFR if not | 60Comment: GLOMERULAR | >=60 | [facility] | | | | FILTRATION | mL/min/1.73m2 | [facility] | | | [place] | RATE,ESTIMATED | | MEDICAL | | | | mL/min/1.94a7Maar than | | CENTER - | | [...] + + + + | Calcium | 8.9 | 8.3 - 10.5 | [facility] | | | | | mg/dL | [facility] | | | | | | MEDICAL | | | | | | CENTER - | | | | | | LABORATORY | | + + + + + + | Albumin | 3.8 | 3.2 - 5.0 g/dL | [facility] | | | | | | [facility] | | | | | | MEDICAL | | | | | | CENTER - | | | | | | LABORATORY | | + + + + + + | Bilirubin | 0.5 | 0.1 - 1.5 mg/dL | [facility] | | | Total | | | [facility] | | | | | | MEDICAL | | | | | | CENTER - | | | | | | LABORATORY | | + + + + + + | Total | 6.2 | 6.0 - 7.8 g/dL | [facility] | | | Protein | | | [facility] | | | | | | MEDICAL | | | | | | CENTER - | | | | | | LABORATORY | | + + + + + + | AST | 26 | 10 - 42 U/L | [facility] | | | | | | [facility] | | | | | | MEDICAL | | | | | | CENTER - | | | | | | LABORATORY | | + + + + + + | ALT | 24 | 6 - 45 U/L | [facility] | | | | | | [facility] | | | | | | MEDICAL | | | | | | CENTER - | | | | | | LABORATORY | | + + + + + + | Alkaline | 156 (H) | 40 - 110 U/L | [facility] | | | Phosphatase | | | [facility] | | | | | | MEDICAL | | | | | | CENTER - | | | | | | LABORATORY | | + + + + + + | Globulin | 2.4 | 2.1 - 3.8 g/dL | [facility] | | | | | | [facility] | | | | | | MEDICAL | | | | | | CENTER - | | | | | | LABORATORY | | + + + + + + | Albumin/Sakina | 1.6 | 0.8 - 2.0 | [facility] | | | bulin Ratio | | | [facility] | | | | | | MEDICAL | | | | | | CENTER - | | | | | | LABORATORY | | + + + + + + | BUN/Creatin | 9.3 | | [facility] | | | ine [...] [address] | [place] | [phone] | | [facility] | | [address] | | | - LABORATORY | | | | + + + + + CBC with Differential (05/21/2016 8:35 AM PDT) + + + + + + | Component | Value | Ref Range | Performed | Pathologist | | | | | At | Signature | + + + + + + | WBC | 5.0 | 4.0 - 11.0 K/uL | [facility] | | | | | | [facility] | | | | | | MEDICAL | | | | | | CENTER - | | | | | | LABORATORY | | + + + + + + | RBC | 3.14 (L) | 3.70 - 5.20 | [facility] [...] + + + + | Hematocrit | 28.2 (L) | 34.0 - 47.0 % | [facility] | | | | | | [facility] | | | | | | MEDICAL | | | | | | CENTER - | | | | | | LABORATORY | | + + + + + + | MCV | 89.8 | 83.0 - 101.0 fL | [facility] | | | | | | [facility] | | | | | | MEDICAL | | | | | | CENTER - | | | | | | LABORATORY | | + + + + + + | MCH | 30.4 | 28.0 - 35.0 pg | [facility] [...] + + + + | RDW-CV | 13.2 | <15.0 % | [facility] | | | | | | [facility] | | | | | | MEDICAL | | | | | | CENTER - | | | | | | LABORATORY | | + + + + + + | Platelet | 131 (L) | 140 - 440 K/uL | [facility] | | | Count | | | [facility] | | | | | | MEDICAL | | | | | | CENTER - | | | | | | LABORATORY | | + + + + + + | MPV | 8.3 | fL | [facility] | | | | | | [facility] | | | | | | MEDICAL | | | | | | CENTER - | | | | | | LABORATORY | | + + + + + + | % | 45.4 | 45.0 - 82.0 % | [facility] | | | Neutrophils | | | [facility] | | | | | | MEDICAL | | | | | | CENTER - | | | | | | LABORATORY | | + + + + + + | % | 35.9 | 20.0 - 45.0 % | [facility] | | | Lymphocytes | | | [facility] | | | | | | MEDICAL | | | | | | CENTER - | | | | | | LABORATORY | | + + + + + + | % Monocytes | 16.0 (H) | 4.0 - 12.0 % | [facility] | | | | | | [facility] | | | | | | MEDICAL | | | | | | CENTER - | | | | | | LABORATORY | | + + + + + + | % | 2.2 | 0.0 - 5.0 % | [facility] | | | Eosinophils | | | [facility] | | [...] + + + + | Absolute | 2.30 | 1.80 - 8.50 | [facility] | | | Neutrophils | | K/uL | [facility] | | | | | | MEDICAL | | | | | | CENTER - | | | | | | LABORATORY | | + + + + + + | Absolute | 1.80 | 0.60 - 3.20 | [facility] | | | Lymphocytes | | K/uL | [facility] | | | | | | MEDICAL | | | | | | CENTER - | | | | | | LABORATORY | | + + + + + + | Absolute | 0.80 | 0.00 - 1.00 | [facility] | | | Monocytes | | K/uL | [facility] | | | | | | MEDICAL | | | | | | CENTER - | | | | | | LABORATORY | | + + + + + + | Absolute | 0.10 | 0.00 - 0.40 | [facility] | | | Eosinophils | | K/uL | [facility] | | | | | | MEDICAL | | | | | | CENTER - | | | | | | LABORATORY | | + + + + + + | Absolute | 0.00 | 0.00 - 0.10 | [facility] | | | Basophils | | K/uL | [facility] | | | | [...] [address] | [place] | [phone] | | [facility] | | [address] | | | - LABORATORY | | | | + + + + + CEA (05/21/2016 8:35 AM PDT) + +-------+ + + + | Component | Value | Ref Range | Performed | Pathologist | | | | | At | Signature | + +-------+ + + + | CEA | 1.1 | 0.0 - 10.0 | [facility] | | | | | ng/mL | [facility] | | | | [...] + + | [facility] | [address] | [place] | [phone] | | [facility] | | [address] | | | - LABORATORY | | | | + + + + + documented in this encounter Visit Diagnoses + + | Diagnosis | + + | Gallbladder cancer, 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
--- OUTSIDE RECORDS SUMMARY | ~2019-07-09 | XMS | Encounter Summary ---
Demographics + + + | Address | [address] | | | [place] [address] | + + + | Home Phone | | + + + | Preferred Language | Unknown | + + + | Marital Status | | + + + | Uatsdin Affiliation | Unknown | + + + | Race | Unknown | + + + | Ethnic Group | Unknown | + + + Author + + + | Author | [facility] | | | and Eduardoana | + + + | Organization | [facility] | | | and Eduardo[place] | + + + | Address | Unknown | + + + | Phone | Unavailable | + + + Support + + + + + | Name | Relationship | Address | Phone | + + + + + | Poncho Oquendo | ECON | [address] | | | | | [place] | | | | | [address] | | + + + + + | Marta Upton | ECON | [place] | | | | | [address] | | + + + + + Care Team Providers + +------+ + | Care Circuit Board Assembler Name | Role | Phone | + +------+ + | Valeriy Carmona DO | PCP | | + +------+ + Encounter Details +--------+ + + + + | Date | Type | Department | Care Team | Description | +--------+ + + + + | 05/13/ | Orders Only | [facility] | Reinaldo, | Gallbladder cancer, | | 2018 | | [facility] | Epifanio Soler MD [address] | carcinoma (HCC) | | | | ONCOLOGY [address] [place] | | | | | [place], | [place] [address] | | | | | [place] [address] | [phone] | | | | | [phone] | | | +--------+ + + + [...] [address] | | | | | | [place] [address] | | | | | | [phone] | | | | | | | | +--------+---------+ + + + documented as of this encounter Visit Diagnoses + + | Diagnosis | + + | Gallbladder cancer, carcinoma (HCC) Malignant neoplasm of gallbladder | + + documented in this encounter"
--- OUTSIDE RECORDS SUMMARY | ~2019-07-09 | XMS | Encounter Summary ---
Demographics + + + | Address | [address] | | | [place] [address] | + + + | Home Phone | | + + + | Preferred Language | Unknown | + + + | Marital Status | | + + + | Scientology Affiliation | Unknown | + + + | Race | Unknown | + + + | Ethnic Group | Unknown | + + + Author + + + | Author | [facility] | | | and [place]ardo[place] | + + + | Organization | [facility] | | | and [place] | + + + | Address | Unknown | + + + | Phone | Unavailable | + + + Support + + + + + | Name | Relationship | Address | Phone | + + + + + | Poncho Oquendo | ECON | [address] | | | | | [place] | | | | | [address] | | + + + + + | Marta Upton | ECON | [place] | | | | | [address] | | + + + + + Care Team Providers + +------+ + | Care Electronic Systems Technician Name | Role | Phone | + +------+ + | Valeriy Carmona DO | PCP | | + +------+ + Reason for Visit Diagnostic/Screening (Routine) +--------+--------+ + + + + | Status | Reason | Specialty | Diagnoses / | Referred By | Referred To | | | | | Procedures | Contact | Contact | +--------+--------+ + + + + | Closed | | Radiology | Diagnoses | Jonathon, | | | | | | Ovarian | Latoya | | | | | | mass | [place], COLLECTOR | | | | | | Procedures | [address] | | | | | | CT Chest | [place] | | | | | | Abdomen | [place], [place] | | | | | | Pelvis w | [address] | | | | | | [address] | Phone: | | | | | | Abdomen | [phone] | | | | | | Pelvis w | Fax: | | | | | | Contrast | [phone] | | +--------+--------+ + + + + Encounter Details +--------+ + + + + | Date | Type | Department | Care Team | Description | +--------+ + + + + | 05/22/ | Hospital | [facility] | Latoya Holt | Ovarian mass | | 2015 | Encounter | [facility] [address] | [place], COLLECTOR [address] | | | | | [address], | [address] [place] | | | | | [place] [address] | [place] [address] | | | | | [phone] | [phone] | | | | | | | [...] at Time of Discharge + + + +---------+--------+ + | Medication | Sig | Dispensed | Refills | Start | End Date | | | | | | Date | | + + + +---------+--------+ + | acetaminophen | Take 500 mg by mouth | | 0 | | | | (TYLENOL) 500 mg | every 4 hours as | | | | 0 | | tablet | needed for | | | | | | | Headaches. | | | | | + + + +---------+--------+ + | docusate calcium | Take 240 mg by mouth | | 0 | | | | (SURFAK) 240 mg | as needed. | | | | 7 | | capsule | | | | | | + + + +---------+--------+ + | fish oil 1,000 mg | Take 1,000 mg by | | 0 | | | | capsule | mouth Daily. | | | | 5 | + + + +---------+--------+ + | | Take 1 tablet by | | 0 | | | | HYDROcodone-acetamin | mouth every 4 hours | | | | 7 | | ophen (VICODIN) | as needed. | | | | | | 5-500 mg per tablet | | | | | | + + + +---------+--------+ + | MULTIPLE VITAMIN | Take by mouth | | 0 | | | | PO | Daily. | | | | 7 | + + + +---------+--------+ + | Probiotic Product | Take by mouth | | 0 | | | | (PROBIOTIC DAILY PO) | Daily. | | | | 0 | + + + +---------+--------+ + documented as of this encounter Plan of Treatment +--------+---------+ + + + | Date | Type | Specialty | Care Team | Description | +--------+---------+ + + + | 09/17/ Office | Urology | Pedro Green, | | | 2019 | Visit | | DO [address] | | | | | | [place] [address] | | | | | | [phone] | | | | | | | | +--------+---------+ + + + documented as of this encounter Procedures + +--------+ + + + | Procedure Name | Priori | Date/Time | Associated Diagnosis | Comments | | | ty | | | | + +--------+ + + + | CT CHEST ABDOMEN | Routin | 05/22/2014 | Ovarian mass | Results for this | | PELVIS W CONTRAST | e | 1:23 PM | | procedure are in the | | | | PDT | | results section. | + +--------+ + + + documented in this encounter Results CT Chest Abdomen Pelvis w Contrast (05/22/2014 1:23 PM PDT) + + | Specimen | + + | | + + + +-------- -------+ | Narrative | Perform ed At | + +-------- -------+ | CT CHEST | [facility] | | ABDOMEN PELVIS W CONTRAST . 05/22/2014 1:16 PM HISTORY: LEFT OVARIAN | | | MASS . History of gallbladder cancer. Ovarian mass onleft side | | | discovered on CT from 03/18/2014. COMPARISON: CT abdomen pelvis | | | 03/18/2014 TECHNIQUE: Axial images were obtained from the base of the | | | neck to the inferiorpelvis following the uneventful intravenous | | | administration of 100 mL [id number] contrast. Multiplanar | | | reformatted images created.RADIATION DOSE: DLP 796 mGy-cm FINDINGS: | | | CHEST:The structures at the base of the neck are unremarkable.No | | | pathologically enlarged mediastinal lymph nodes are evident.The | | | esophagus is within normal limits.The trachea is within normal | | | limits.The aorta and branching vessels are within normal limits.The | | | pulmonary arterial structures are within normal limits.The heart is | | | within normal limits, without pericardial effusion. Lungs are clear, | | | without pulmonary nodule or other abnormal opacification.No pleural | | | effusion or pneumothorax is seen.Posterior left diaphragmatic hernia | | | with small amount of fat extending from theintra-abdominal space into | | | the left posterior intrathoracic space, stable ascompared with | | | 04/12/2012. ABDOMEN/PELVIS:The liver, pancreas, spleen, and left | | | adrenal gland are normal. Gallbladder is surgically absent. | | | Surgical clip seen in the region of the right adrenal gland, | | | possibly related topartial adrenalectomy. Both kidneys are within | | | normal limits, without stone or hydronephrosis.No identifiable | | | ureteral abnormalities. The distal portion of the left ureteris not | | | definitively seen throughout its entire length, however, no evidence | | | ofureteral dilation or stone is identified in its expected course. The | | | stomach, duodenum, and small bowel are within normal limits.There is | | | diverticulosis of the colon, without evidence of wall thickening | | | orinflammatory change to suggest diverticulitis.The ileocecal junction | | | is within normal limits.The appendix is within normal limits, | | | measuring 5 mm in diameter. Free fluid is seen in the abdomen and | | | pelvis, particularly adjacent the spleen,within the leaves of the | | | mesentery, in the right paracolic and left paracolicgutters, and | | | within the pelvis.No evidence of free intraperitoneal air. No | | | pathologically enlarged abdominal or pelvic lymph nodes.There is | | | scattered calcification of the aorta. Abdominal and pelvic | | | vesselsotherwise appear unremarkable. The bladder is unremarkable. | | | There has been significant interval enlargement of the previously | | | describedcystic structure in the left adnexal region, with some thin | | | internal septationsand irregularity of the contour of the soft tissue | | | component in the wall of thecystic collection. This cystic | | | collection now measures approximately 6.1 cm APby 6.5 cm transverse by | | | 5.8 cm craniocaudal, best seen axial images 124-138.Additionally, | | | there is a soft tissue nodular component at the inferior aspect ofthe | | | cystic mass that measures approximately 3.0 cm AP by 2.1 cm | | | transverse.At the right anterior margin of the uterus, there is a new, | | | somewhatirregularly-shaped soft tissue lesion with a lobulated, | | | almost nodular contourthat measures approximately 3.5 cm AP by 3.6 cm | | | transverse by 4.0 cmcraniocaudal, best seen axial images 128-136. | | | MUSCULOSKELETAL:No overt lytic or blastic lesions are seen.There is a | | | small fat-containing umbilical hernia, noninflamed. The | | | subcutaneoussoft tissues and muscles are otherwise unremarkable. | | | IMPRESSION - Interval development of large complex cystic mass in the | | | left adnexal region,with either attached or separate soft tissue | | | nodular mass at the inferior marginof the complex cystic mass.Interval | | | development of prominent soft tissue mass in the right adnexal | | | regionadjacent the uterine fundus, as described above.Free fluid | | | within the abdomen and pelvis.No evidence of recurrent abnormality in | | | the region of the gallbladder fossa. Findings were discussed with | | | Latoya Holt via telephone at approximately 3:05PM on 05/22/2014. | | | Dictated and Signed by: Axel Aggarwal MD Electronically signed: | | | 05/22/2014 3:12 PM | | |Additionally, there is a soft tissue nodular component at the inferior aspect of | | |the cystic mass that measures approximately 3.0 cm AP by 2.1 cm transverse. | | |At the right anterior margin of the uterus, there is a new, somewhat | | |irregularly-shaped soft tissue lesion with a lobulated, almost nodular contour | | |that measures approximately 3.5 cm AP by 3.6 cm transverse by 4.0 cm | | |craniocaudal, best seen axial images 128-136. | | | | | |MUSCULOSKELETAL: | | |No overt lytic or blastic lesions are seen. | | |There is a small fat-containing umbilical hernia, noninflamed. The subcutaneous | | |soft tissues and muscles are otherwise unremarkable. | | | | | | | | |IMPRESSION - | | |Interval development of large complex cystic mass in the left adnexal region, | | |with either attached or separate soft tissue nodular mass at the inferior margin | | |of the complex cystic mass. | | |Interval development of prominent soft tissue mass in the right adnexal region | | |adjacent the uterine fundus, as described above. | | |Free fluid within the abdomen and pelvis. | | |No evidence of recurrent abnormality in the region of the gallbladder fossa. | | | | | |Findings were discussed with Latoya Holt via telephone at approximately 3:05 | | |PM on 05/22/2014. | | | | | |Dictated and Signed by: Axel Aggarwal MD | | | Electronically signed: 05/22/2014 3:12 PM | | | | | + +-------- -------+ + + | Procedure Note | + + | Edmundo, Rad Results In - 05/22/2014 3:[address] CHEST ABDOMEN PELVIS W CONTRAST . | | 05/22/2014 1:16 PM HISTORY: LEFT OVARIAN MASS . History of gallbladder cancer. Ovarian | | mass onleft side discovered on CT from 03/18/2014. COMPARISON: CT abdomen pelvis | | 03/18/2014 TECHNIQUE: Axial images were obtained from the base of the neck to the | | inferiorpelvis following the uneventful intravenous administration of 100 mL | | [id number] contrast. Multiplanar reformatted images created.RADIATION DOSE: DLP | | 796 mGy-cmFINDINGS: CHEST:The structures at the base of the neck are unremarkable.No | | pathologically enlarged mediastinal lymph nodes are evident.The esophagus is within | | normal limits.The trachea is within normal limits.The aorta and branching vessels are | | within normal limits.The pulmonary arterial structures are within normal limits.The | | heart is within normal limits, without pericardial effusion.Lungs are clear, without | | pulmonary nodule or other abnormal opacification.No pleural effusion or pneumothorax is | | seen.Posterior left diaphragmatic hernia with small amount of fat extending from | | theintra-abdominal space into the left posterior intrathoracic space, stable ascompared | | with 04/12/2012.ABDOMEN/PELVIS:The liver, pancreas, spleen, and left adrenal gland are | | normal. Gallbladder is surgically absent. Surgical clip seen in the region of the | | right adrenal gland, possibly related topartial adrenalectomy.Both kidneys are within | | normal limits, without stone or hydronephrosis.No identifiable ureteral abnormalities. | | The distal portion of the left ureteris not definitively seen throughout its entire | | length, however, no evidence ofureteral dilation or stone is identified in its expected | | course.The stomach, duodenum, and small bowel are within normal limits.There is | | diverticulosis of the colon, without evidence of wall thickening orinflammatory change | | to suggest diverticulitis.The ileocecal junction is within normal limits.The appendix is | | within normal limits, measuring 5 mm in diameter.Free fluid is seen in the abdomen and | | pelvis, particularly adjacent the spleen,within the leaves of the mesentery, in the | | right paracolic and left paracolicgutters, and within the pelvis.No evidence of free | | intraperitoneal air.No pathologically enlarged abdominal or pelvic lymph nodes.There is | | scattered calcification of the aorta. Abdominal and pelvic vesselsotherwise appear | | unremarkable.The bladder is unremarkable.There has been significant interval enlargement | | of the previously describedcystic structure in the left adnexal region, with some thin | | internal septationsand irregularity of the contour of the soft tissue component in the | | wall of thecystic collection. This cystic collection now measures approximately 6.1 cm | | APby 6.5 cm transverse by 5.8 cm craniocaudal, best seen axial images | | 124-138.Additionally, there is a soft tissue nodular component at the inferior aspect | | ofthe cystic mass that measures approximately 3.0 cm AP by 2.1 cm transverse.At the | | right anterior margin of the uterus, there is a new, somewhatirregularly-shaped soft | | tissue lesion with a lobulated, almost nodular contourthat measures approximately 3.5 cm | | AP by 3.6 cm transverse by 4.0 cmcraniocaudal, best seen axial images | | 128-136.MUSCULOSKELETAL:No overt lytic or blastic lesions are seen.There is a small | | fat-containing umbilical hernia, noninflamed. The subcutaneoussoft tissues and muscles | | are otherwise unremarkable. IMPRESSION - Interval development of large complex cystic | | mass in the left adnexal region,with either attached or separate soft tissue nodular | | mass at the inferior marginof the complex cystic mass.Interval development of prominent | | soft tissue mass in the right adnexal regionadjacent the uterine fundus, as described | | above.Free fluid within the abdomen and pelvis.No evidence of recurrent abnormality in | | the region of the gallbladder fossa.Findings were discussed with Latoya Holt via | | telephone at approximately 3:05PM on 05/22/2014.Dictated and Signed by: Axel Aggarwal | | Electronically signed: 05/22/2014 3:12 PM | |gutters, and within the pelvis. | |No evidence of free intraperitoneal air. | | | |No pathologically enlarged abdominal or pelvic lymph nodes. | |There is scattered calcification of the aorta. Abdominal and pelvic vessels | |otherwise appear unremarkable. | | | |The bladder is unremarkable. | | | |There has been significant interval enlargement of the previously described | |cystic structure in the left adnexal region, with some thin internal septations | |and irregularity of the contour of the soft tissue component in the wall of the | |cystic collection. This cystic collection now measures approximately 6.1 cm AP | |by 6.5 cm transverse by 5.8 cm craniocaudal, best seen axial images 124-138. | |Additionally, there is a soft tissue nodular component at the inferior aspect of | |the cystic mass that measures approximately 3.0 cm AP by 2.1 cm transverse. | |At the right anterior margin of the uterus, there is a new, somewhat | |irregularly-shaped soft tissue lesion with a lobulated, almost nodular contour | |that measures approximately 3.5 cm AP by 3.6 cm transverse by 4.0 cm | |craniocaudal, best seen axial images 128-136. | | | |MUSCULOSKELETAL: | |No overt lytic or blastic lesions are seen. | |There is a small fat-containing umbilical hernia, noninflamed. The subcutaneous | |soft tissues and muscles are otherwise unremarkable. | | | | | |IMPRESSION - | |Interval development of large complex cystic mass in the left adnexal region, | |with either attached or separate soft tissue nodular mass at the inferior margin | |of the complex cystic mass. | |Interval development of prominent soft tissue mass in the right adnexal region | |adjacent the uterine fundus, as described above. | |Free fluid within the abdomen and pelvis. | |No evidence of recurrent abnormality in the region of the gallbladder fossa. | | | |Findings were discussed with Latoya Holt via telephone at approximately 3:05 | |PM on 05/22/2014. | | | |Dictated and Signed by: Axel Aggarwal MD | | Electronically signed: 05/22/2014 3:12 PM | + + + +---------+ + + | Performing | Address | City/State/Zipcode | Phone Number | | Organization | | | | + +---------+ + + | [facility] | | | | + +---------+ + + documented in this encounter Visit Diagnoses + + | Diagnosis | + + | Ovarian mass Unspecified noninflammatory disorder of ovary, fallopian tube, and broad | | ligament | + + documented in this encounter Administered Medications + +--------+ +---------+------+------+ | Medication Order | MAR | Action | Dose | Rate | Site | | | Action | Date | | | | + +--------+ +---------+------+------+ | iohexol (OMNIPAQUE 350) 350 | Given | 05/23/19 | 100 mLs | | | | mg/mL injection 100 mL 100 mL, | | 15 1:22 | | | | | Intravenous, ONCE PRN, Other, | | PM PDT | | | | | Starting 05/22/14 at 1321, For | | | | | | | 1 dose, Cat Scanner | | | | | | + +--------+ +---------+------+------+ +---+---+ | | | +---+---+ documented in this encounter"
--- OUTSIDE RECORDS SUMMARY | ~2019-07-09 | XMS | Encounter Summary ---
Demographics + + + | Address | [address] | | | [place] [address] | + + + | Home Phone | | + + + | Preferred Language | Unknown | + + + | Marital Status | | + + + | Temple Affiliation | Unknown | + + + | Race | Unknown | + + + | Ethnic Group | Unknown | + + + Author + + + | Author | [facility] | | | and [place] | + + + | Organization | [facility] | | | and [place] | + + + | Address | Unknown | + + + | Phone | Unavailable | + + + Support + + + + + | Name | Relationship | Address | Phone | + + + + + | Poncho Oquendo | ECON | [address] | | | | | [place] | | | | | [address] | | + + + + + | Marta Upton | ECON | [place] | | | | | [address] | | + + + + + Care Team Providers + +------+ + | Care Mechanical Fitter Name | Role | Phone | + +------+ + | Valeriy Carmona DO | PCP | | + +------+ + Reason for Visit +--------+ + | Reason | Comments | +--------+ + | Other | | +--------+ + Encounter Details +--------+ + + + + | Date | Type | Department | Care Team | Description | +--------+ + + + + | 09/19/ | Telephone | [facility] | Reinaldo, | Other | | 2014 | | [facility] | Epifanio Soler MD [address] | | | | | [facility] [address] | [facility] | | | | | [facility] | [place] [address] | | | | | [place] [address] | [phone] | | | | | [phone] | | | +--------+ + + + [...] [address] | | | | | | [place] [address] | | | | | | [phone] | | | | | | | | +--------+---------+ + + + + +------+--------+ + + | Name | Type | Priori | Associated Diagnoses | Order Schedule | | | | ty | | | + +------+--------+ + + | CBC w/ Auto | Lab | STAT | Malignant neoplasm | 1 Occurrences | | Differential | | | of pancreas, | starting 09/19/2014 | | | | | unspecified location | until 09/19/2015 | | | | | of malignancy (HCC) | | + +------+--------+ + + | Comprehensive | Lab | STAT | Malignant neoplasm | 1 Occurrences | | Metabolic Panel | | | of pancreas, | starting 09/19/2014 | | | | | unspecified location | until 09/19/2015 | | | | | of malignancy (HCC) | | + +------+--------+ + + | Lactate | Lab | STAT | Malignant neoplasm | 1 Occurrences | | Dehydrogenase | | | of pancreas, | starting 09/19/2014 | | | | | unspecified location | until 09/20/2015 | | | | | of malignancy (HCC) | | + +------+--------+ + + | CA 19-9, Quant | Lab | STAT | Malignant neoplasm | 1 Occurrences | | | | | of pancreas, | starting 09/19/2014 | | | | | unspecified location | until 09/20/2015 | | | | | of malignancy (HCC) | | + +------+--------+ + + documented as of this encounter Visit Diagnoses + + | Diagnosis | + + | Malignant neoplasm of pancreas, unspecified location of malignancy (HCC) - Primary | + + documented in this encounter"
--- OUTSIDE RECORDS SUMMARY | ~2019-07-09 | XMS | Encounter Summary ---
Demographics + + + | Address | [address] | | | [place] [address] | + + + | Home Phone | | + + + | Preferred Language | Unknown | + + + | Marital Status | | + + + | Jewish Affiliation | Unknown | + + + | Race | Unknown | + + + | Ethnic Group | Unknown | + + + Author + + + | Author | [facility] | | | and [place] | + + + | Organization | [facility] | | | and [place] | + + + | Address | Unknown | + + + | Phone | Unavailable | + + + Support + + + + + | Name | Relationship | Address | Phone | + + + + + | Poncho Oquendo | ECON | [address] | | | | | [facility] [place] | | | | | [address] | | + + + + + | Marta Upton | ECON | [place] | | | | | [address] | | + + + + + Care Team Providers + +------+ + | Care Paper Bag Machine Operator Name | Role | Phone [...] | | | | | | | Gallbladder | | | | | | | cancer, | | | | | | | carcinoma | | | | | | | (HCC) | | | | | | | Obstruction | | | | | | | of left | | | | | | | ureter | | | | | | | Procedures | | | | | | | CYSTOSCOPY | | | | | | | URETERAL | | | | | | | STENT | | | | | | | REMOVAL/REPL | | | | | | | ACEMENT | | | +--------+--------+ + + + + Encounter Details +--------+ + + + + | Date | Type | Department | Care Team | Description | +--------+ + + + + | 04/26/ | Hospital | [facility] | | Gallbladder cancer, | | 2020 | Encounter | [facility] | | carcinoma (HCC); | | | | [facility] | | Obstruction of left | | | | [address] | | ureter | | | | [place] | | | | | | [address] | | | | | | [phone] | | | +--------+ + + + [...] + + + | Blood Pressure | 104/59 | 04/27/2019 10:45 AM | | | | | PDT | | + + + + + | Pulse | 65 | 04/27/2019 10:45 AM | | | | | PDT | | + + + + + | Temperature | 36.4 C (97.5 F) | 04/27/2019 10:18 AM | | | | | PDT | | + + + + + | Respiratory Rate | 16 | 04/27/2019 10:45 AM | | | | | PDT | | + + + + + | Oxygen Saturation | 99% | 04/27/2019 10:45 AM | | | | | PDT | | + + + + + | Inhaled Oxygen | - | - | | | Concentration | | | | + + + + + | Weight | 67.4 kg (148 lb 9.6 | 04/27/2019 9:01 AM | | | | oz) | PDT | | + + + + + | Height | 160 cm (5' 3") | 04/27/2019 9:01 AM | | | | | PDT | | + + + + + | Body Mass Index | 26.32 | 04/27/2019 9:01 AM | | | | | PDT | | + + + + + documented in this encounter Discharge Instructions Instructions Cindy Casarez RN - 04/27/2019Formatting of this note might be different fro m the original. Follow up in 4-5 months to arrange 6 month stent exchange Cystoscopy Cystoscopy is a procedure that lets your doctor look directly inside your urethra and bladd er. It can be used to: Help diagnose a problem with your urethra, bladder, or kidneys. Take a sample (biopsy) of bladder or urethral tissue. Treat certain problems (such as removing kidney stones). Place a stent to bypass an obstruction. Take special X-rays of the kidneys. Based on the findings, your doctor may recommend other tests or treatments. What is a cystoscope? A cystoscope is a telescope-like instrument that contains lenses and fiberoptics (small gla ss wires that make bright light). The cystoscope may be straight and rigid, or flexible to b end around curves in the urethra. The doctor may look directly into the cystoscope, or proje ct the image onto a monitor. Getting ready Ask your doctor if you should stop taking any medicines before the procedure. Ask whether you should avoid eating or drinking anything after midnight before the proce dure. Follow any other instructions your doctor gives you. Tell yourdoctor before the exam if you: Take any medicines, such as aspirin or blood thinners Have allergies to any medicines Are The procedure Cystoscopy is done in the doctor s office, surgery center, or hospital. The doctor and a nurse are present during the procedure. It takes only a few minutes, longer if a biopsy, X-r ay, or treatment needs to be done. During the procedure: You lie on an exam table on your back, knees bent and legs apart. You are covered with a drape. Your urethra and the area around it are washed. Anesthetic jelly may be applied to numb the urethra. Other pain medicine is usually not needed. In some cases, you may be offered a mild sedative to help you relax. If a more extensive procedure is to be done, such as a biop sy or kidney stone removal, general anesthesia may be needed. The cystoscope is inserted. A sterile fluid is put into the bladder to expand it. You ma y feel pressure from this fluid. When the procedure is done, the cystoscope is removed. After the procedure If you had a sedative, general anesthesia, or spinal anesthesia, you must have someone driv e you home. Once you re home: Drink plenty of fluids. You may have burning or light bleeding when you urinate this is normal. Medicines may be prescribed to ease any discomfort or prevent infection. Take these as d irected. Call your doctor if you have heavy bleeding or blood clots, burning that lasts more than a day, a fever [id number] (38 C), or trouble urinating. Date Last Reviewed: 02/15/201619992186-8120 [employer]. [address] [place] [address]. All righ ts reserved. This information is not intended as a substitute for professional medical care. Always follow your healthcare professional's instructions. Ureteral Stents A ureteral stent is a [...] out of the urethra Date Last Reviewed: 02/15/201619991127-[address] [employer] [place] [address], [place] [address]. All righ ts reserved. This information is not intended as a substitute for professional medical care. Always follow your healthcare professional's instructions. documented in this encounter Medications at Time [...] insert 1 tablet | | 0 | 03/15/19 | | | (VAGIFEM) 10 mcg | [...] + documented as of this encounter Progress Cindy Peters RN - 04/27/2019 8:52 AM PDTD/C instructions reviewed with pt and spouse. Rx x2 given to spouse. documented in this en counter Plan of Treatment +--------+---------+ + + + | Date | Type | Specialty | Care Team | Description | +--------+---------+ + + + | 09/17/ | Office | Urology | Pedro Green, | | | 2019 | Visit | | DO [address] | | | | | | [place] [address] | | | | | | [phone] | | | | | | | | +--------+---------+ + + + documented as of this encounter Procedures + +--------+ + + + | Procedure Name | Priori | Date/Time | Associated Diagnosis | Comments | | | ty | | | | + +--------+ + + + | FL C ARM | Routin | 04/27/2019 | | Results for this | | | e | 10:26 AM | | procedure are in the | | | | PDT | | results section. | + +--------+ + + + | STORED IMAGE UROLOGY | Routin | 04/27/2019 | | Results for this | | | e | 10:26 AM | | procedure are in the | | | | PDT | | results section. | + +--------+ + + + | CYSTOSCOPY URETERAL | | 04/27/2019 | Gallbladder | | | STENT | | 9:52 AM | cancer, carcinoma | | | | | PDT | (HCC) Obstruction | | | | | | of left ureter | | + +--------+ + + + +---+--------+ | | Case | | | Notes | | | | | | CYSTOS | | | COPY | | | URETER | | | AL | | | STENT | | | REMOVA | | | L/REPL | | | ACEMEN | | | T | +---+--------+ | | | | | Specia | | | l | | | Needs | | | DOES | | | NOT | | | WANT | | | EARLY | | | TIME, | | | OUT OF | | | TOWN | +---+--------+ documented in this encounter Results BG Hernandez (04/27/2019 10:26 AM PDT) + + | Specimen | + + | | + + + + + | Narrative | Performed At | + + + | This exam has been auto-finalized and the interpretation may exist | | | elsewhere in the chart. | | + + + [facility] (04/27/2019 10:26 AM PDT) + + | Specimen | + + | | + + + + + | Narrative | Performed At | + + + | Stored images were created by an independent practitioner and were | [facility] | | not interpreted by a radiologist. Please refer to the procedural | | | note for any report or interpretation of these images done by the | | | ordering physician. | | + + + + +---------+ [...] documented in this encounter Administered Medications + + + +------+------+------+ | Medication Order | MAR | Action | Dose | Rate | Site | | | Action | Date | | | | + + + +------+------+------+ | lactated ringers (LR) infusion | Continue | 04/27/19 | | | | | at 10-100 mL/hr, Intravenous, | d by | 20 9:52 | | | | | CONTINUOUS, Starting 04/27/19 | Anesthes | AM PDT | | | | | at 0945, TKO., Pre-op | ia | | | | | + + + +------+------+------+ +---------+ +---+ +---+ | New Bag | 04/27/19 | | 30 mL/hr | | | | 20 9:28 | | | | | | AM PDT | | | | +---------+ +---+ +---+ +---+---+ | | | +---+---+ documented in this encounter
--- OUTSIDE RECORDS SUMMARY | ~2019-07-09 | XMS | Encounter Summary ---
Demographics + + + | Address | [address] | | | [place] [address] | + + + | Home Phone [...] + | Author | [facility] | | | and [place] | + + + | Organization | [facility] | | | and [place] | + + + | Address | Unknown | + + + | Phone | Unavailable | + + + Support + + + + + | Name | Relationship | Address | Phone | + + + + + | Poncho Oquendo | ECON | [address] | | | | | [facility] [place] | | | | | [address] | | + + + + + | Marta Upton | ECON | [place] | | | | | [address] | | + + + + + Care Team Providers + +------+ + | Care Wire Threader Name | Role | Phone | + [...] | | renal and | [place]ED, | [place] | | | | | ureteral | [place] | [address] Phone: | | | | | calculous | [phone] | [phone] | | | | | obstruction | Phone: | Fax: | | | | | | [phone] | [phone] | | | | | | Fax: | | | | | | | [phone] | | +--------+--------+ + + + + Encounter Details +--------+---------+ + + + | Date | Type | Department | Care Team | Description | +--------+---------+ + + + | 03/26/ | Office | [facility] | Pedro Green, | Gallbladder cancer, | | 2020 | Visit | UROLOGY [address] | DO [address] | carcinoma (HCC) | | | | [address] | [place] [address] | (Primary Dx); | | | | [place], [place] | [phone] | Obstruction of left | | | | [address] | | ureter | | | | [phone] | | | +--------+---------+ + + + [...] encounter Patient Instructions Patient Instructions Eleonora Saxena, Die Stamping Press Operator - 03/26/2019 10:30 AM PSTPLAN : Proceed [...] MUST receive a cardiac clearance from your suede cleaner prior to surgery. Family members (equipment driver) need to stay here during the procedure and can leave once patient i s discharged. Location: [facility] ([address] [place] [address] [place] [address]) Time: You will receive a call around [...] related questions or concerns, please contact our Die Stamping Press Operator Christine parikh at PLAN : Proceed with [...] MUST receive a cardiac clearance from your suede cleaner prior to surgery. Family members (equipment driver) need to stay here during the procedure and can leave once patient is discharged. Location: [facility] ([address] [place] [address] [place] [address]) Time: You will receive a call around [...] related questions or concerns, please contact our Die Stamping Press Operator Christine parikh at documented in this encounter Progress Notes Pedro Green DO - 03/26/2019 10:30 AM PSTFormatting of this note might be different fr om the original. [facility] Urology Primary Care Provider: No Physician [...] this well. Her last exchange was at [facility] during a septic episode. Her [...] and replacement; Surgeon: Pedro coker DO; Location: [facility] MAIN OR HYSTERECTOMY LIVER SURGERY OTHER SURGICAL HISTORY UNLISTED PROCEDURE ARTHROSCOPY OTHER SURGICAL HISTORY MEDIPORT INSERTION SINGLE OTHER SURGICAL HISTORY HARDWARE PRESENT OTHER SURGICAL HISTORY Left 07/05/2018 CYSTOSCOPY W/ URETERAL STENT PLACEMENT - Procedure: CYSTOSCOPY - STENT; Surgeon: Pedro Green DO; Location: [facility] MAIN OR; Service: Urology; Laterality: [...] | 2019 | Visit | | DO [address] [place] [address] | | | | | | [place] [address] | | | | | | [phone] | | | | | | | | +--------+---------+ + + + documented as of this encounter Visit Diagnoses + + | Diagnosis | + + | Gallbladder cancer, 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
--- OUTSIDE RECORDS SUMMARY | ~2019-07-09 | XMS | Encounter Summary ---
Demographics + + + | Address | [address] | | | [place] [address] | + + + | Home Phone | | + + + | Preferred Language | Unknown | + + + | Marital Status | | + + + | Taoism Affiliation | Unknown | + + + | Race | Unknown | + + + | Ethnic Group | Unknown | + + + Author + + + | Author | [facility] | | | and [place] | + + + | Organization | [facility] | | | and [place] | + + + | Address | Unknown | + + + | Phone | Unavailable | + + + Support + + + + + | Name | Relationship | Address | Phone | + + + + + | Poncho Oquendo | ECON | [address] | | | | | [place] | | | | | [address] | | + + + + + | Marta Upton | ECON | [place] | | | | | [address] | | + + + + + Care Team Providers + +------+ + | Care Ground Crew Chief Name | Role | Phone | + +------+ + | Valeriy Carmona DO | PCP | | + +------+ + Encounter Details +--------+ + + + + | Date | Type | Department | Care Team | Description | +--------+ + + + + | 08/27/ | Hospital | [facility] | Valeriy Carmona, | Breast nodule | | 2016 | Encounter | [facility] | DO [address] | | | | | [address] | [place] [address] | | | | | [place], [place] | [phone] | | | | | [address] | | | | | | [phone] | [address] | | +--------+ + + + + [...] | + + + +---------+--------+ + | amitriptyline | Take 10 mg [...] | + + + +---------+--------+ + | ondansetron | Take 8 mg [...] [address] | | | | | | [facility] [place] [place] [address] | | | | | | [phone] | | | | | | | | +--------+---------+ + + + documented as of this encounter Procedures + +--------+ + + + | Procedure Name | Priori | Date/Time | Associated Diagnosis | Comments | | | ty | | | | + +--------+ + + + | LUPE TOMOSYN | Routin | 08/28/2015 | Breast nodule | Results for this | | DIAGNOSTIC RIGHT | e | 1:24 PM | | procedure are in the | | | | PDT | | results section. | + +--------+ + + + documented in this encounter Results LUPE Tomosynthesis Diagnostic Right (08/28/2015 1:24 PM PDT) + + | Specimen | + + | | + + + + + | Narrative | Performed At | + + + | DIAGNOSTIC DIGITAL RIGHT MAMMOGRAM WITH TOMOSYNTHESIS AND RIGHT | [facility] | | BREAST ULTRASOUND 08/28/2015 1:23 PM CLINICAL HISTORY: Follow-up | | | asymmetries seen on previous screening mammography COMPARISON: | | | Digital screening mammogram August 11, 2015 and October 2012 | | | DIAGNOSTIC RIGHT MAMMOGRAM FINDINGS: Rolled CC, XCC, ML and spot | | | compression CC combo views of the right breast are provided. | | | Previously described asymmetries in the slightly lateral, mid to | | | anterior aspect of the breast are less pronounced on the rolled CC | | | view, however there is persistent localized, somewhat rounded density | | | in the middle third of the breast on the XCC view, which also | | | persists with spot compression as well. Additional focal density is | | | noted closer to the nipple on the spot compression view, however no | | | defined mass, architectural distortion or suspicious | | | microcalcification is visible in these regions or elsewhere on the | | | 2-D or zachary images. RIGHT BREAST ULTRASOUND FINDINGS: Sonographic | | | interrogation of the upper outer breast identifies a 2 mm simple | | | anechoic cyst at the 10:00 radiant, 3 cm from the nipple, in addition | | | to a 3.5 x 2.0 x 2.8 mm ovoid, sharply circumscribed structure with | | | mildly echogenic contents and no internal vascularity or posterior | | | echo change. No other abnormality was identified. IMPRESSION - | | | 1. BIRADS 3, PROBABLY BENIGN. RECOMMENDATION: SIX MONTH | | | FOLLOW-UP RIGHT MAMMOGRAPHY AND RIGHT BREAST ULTRASOUND TO EVALUATE | | | THE STABILITY OF MAMMOGRAPHIC ASYMMETRIES AND A SMALL, CIRCUMSCRIBED, | | | MILDLY ECHOGENIC LESION IN THE UPPER OUTER BREAST, POTENTIALLY | | | REFLECTING A COMPLICATED CYST. These findings and recommendations | | | were discussed personally with the patient at the time of the exam on | | | August 28, 2015. Dictated and Signed by: Axel Frost MD | | | Electronically signed: 08/28/2015 2:05 PM | | + + + + + | Procedure Note | + + | Edmundo, Rad Results In - 08/28/2015 2:08 PM PDT DIAGNOSTIC DIGITAL RIGHT MAMMOGRAM WITH | | TOMOSYNTHESIS AND RIGHT BREASTULTRASOUND 08/28/2015 1:23 PM CLINICAL HISTORY: Follow-up | | asymmetries seen on previous screening mammography COMPARISON: Digital screening | | mammogram August 11, 2015 and October 2012 DIAGNOSTIC RIGHT MAMMOGRAM FINDINGS: Rolled | | CC, XCC, ML and spot compression CCcombo views of the right breast are provided. | | Previously described asymmetriesin the slightly lateral, mid to anterior aspect of the | | breast are lesspronounced on the rolled CC view, however there is persistent | | localized,somewhat rounded density in the middle third of the breast on the XCC | | view,which also persists with spot compression as well. Additional focal density | | isnoted closer to the nipple on the spot compression view, however no definedmass, | | architectural distortion or suspicious microcalcification is visible inthese regions or | | elsewhere on the 2-D or zachary images.RIGHT BREAST ULTRASOUND FINDINGS: Sonographic | | interrogation of the upper outerbreast identifies a 2 mm simple anechoic cyst at the | | 10:00 radiant, 3 cm fromthe nipple, in addition to a 3.5 x 2.0 x 2.8 mm ovoid, sharply | | circumscribedstructure with mildly echogenic contents and no internal vascularity | | orposterior echo change. No other abnormality was identified.IMPRESSION -1. BIRADS 3, | | PROBABLY BENIGN.RECOMMENDATION: SIX MONTH FOLLOW-UP RIGHT MAMMOGRAPHY AND RIGHT | | BREASTULTRASOUND TO EVALUATE THE STABILITY OF MAMMOGRAPHIC ASYMMETRIES AND A | | SMALL,CIRCUMSCRIBED, MILDLY ECHOGENIC LESION IN THE UPPER OUTER BREAST, | | POTENTIALLYREFLECTING A COMPLICATED CYST.These findings and recommendations were | | discussed personally with the patient atthe time of the exam on August 28, 2015.Dictated | | and Signed by: Axel Frost MD Electronically signed: 08/28/2015 2:05 PM | | | |IMPRESSION - | |1. BIRADS 3, PROBABLY BENIGN. | | | |RECOMMENDATION: SIX MONTH FOLLOW-UP RIGHT MAMMOGRAPHY AND RIGHT BREAST | |ULTRASOUND TO EVALUATE THE STABILITY OF MAMMOGRAPHIC ASYMMETRIES AND A SMALL, | |CIRCUMSCRIBED, MILDLY ECHOGENIC LESION IN THE UPPER OUTER BREAST, POTENTIALLY | |REFLECTING A COMPLICATED CYST. | | | |These findings and recommendations were discussed personally with the patient at | |the time of the exam on August 28, 2015. | | | |Dictated and Signed by: Axel Frost MD | | Electronically signed: 08/28/2015 2:05 PM | + + + +---------+ + + | Performing | Address | City/State/Zipcode | Phone Number | | Organization | | | | + +---------+ + + | [facility] | | | | + +---------+ + + documented in this encounter Visit Diagnoses + + | Diagnosis | + + | Breast nodule Other (abnormal) findings on radiological examination of breast | + + documented in this encounter"
--- OUTSIDE RECORDS SUMMARY | ~2019-07-09 | XMS | Encounter Summary ---
Demographics + + + | Address | [address] | | | [place] [address] | + + + | Home Phone | | + + + | Preferred Language | Unknown | + + + | Marital Status | Single | + + + | Confucianist Affiliation | NON | + + + | Race | White | + + + | Ethnic Group | Not or | + + + Author + + + | Author | [facility] | + + + | Organization | [facility] | + + + | Address [...] Team Providers + +------+ + | Care Deportation Officer Name | Role | Phone | + +------+ + | Tomasa Wagner | PCP | | + +------+ + Encounter Details +--------+ + + + + | Date | Type | Department | Care Team | Description | +--------+ + + + + | 06/28/ | [facility] | Miguel Seymour, | RE: Followup | | 2015 | Encounter | [facility] | [address] | Appointment | | | | [address] | Surendra Velma | | | | | [address] | [place], [place] | | | | | Pav[facility], [address] [place] [address] | [address] | | | | | [place], [place] | [phone] | | | | | [address] | | | | | | [phone] | | | +--------+ + + + [...]
--- OUTSIDE RECORDS SUMMARY | ~2019-07-09 | XMS | Encounter Summary ---
Demographics + + + | Address | [address] | | | [place] [address] | + + + | Home Phone | | + + + | Preferred Language | Unknown | + + + | Marital Status | | + + + | Restoration Affiliation | Unknown | + + + | Race | Unknown | + + + | Ethnic Group | Unknown | + + + Author + + + | Author | [facility] | | | and Eduardo[place] | + + + | Organization | [facility] | | | and [place]ardo[place] | + + + | Address | Unknown | + + + | Phone | Unavailable | + + + Support + + + + + | Name | Relationship | Address | Phone | + + + + + | Poncho Oquendo | ECON | [address] | | | | | [place] | | | | | [address] | | + + + + + | Marta Upton | ECON | [place] | | | | | [address] | | + + + + + Care Team Providers + +------+ + | Care Poultry Debeaker Name | Role | Phone | + [...] 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, | [place]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 | MD [address] | [place], | | | | | (HCC) | [address] | [place] [address] | | | | | Procedures | [place], | Phone: | | | | | [place] | [place] [address] | [phone] | | | | | PEMBROLIZUMA | Phone: | Fax: | | | | | B, [address] [place] | [phone] | [phone] | | | | | NORMAL | Fax: | | | | | | [place] | [phone] | | | | | | SOLUTION | | | | | | | INFUS, [address] | | | | | | | [address] [place] | | | | | | | NORMAL | | | | | | | SALINE | | | | | | | SOLUTION | | | | | | | INFUS, 250 | | | | | | | [address] [place] | | | | | | | STERILE | | | | | | | WATER/SALINE | | | | | | | , [address] [place] | | | | | | | CHEMOTHER, | | | | | | | IV PUSH,EA | | | | | | | ADD DRUG [place] | | | | | | | CHEMOTHER, | | | | | | | IV INFUSION, | | | | | | | 1 HR [place] | | | | | | | CHEMOTHER, | | | | | | | IV INFUSION, | | | | | | | EA HR [place] | | | | | | | CHEMOTHER,NO | | | | | | | N-HORMONE | | | | | | | ANTI-NEOPL, | | | | | | | SUB-Q/IM [place] | | | | | | | [...] + + | 02/02/ | Hospital | [facility] | Reinaldo, | Gallbladder cancer, | | 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 documented in this encounter Plan of Treatment +--------+---------+ + + + | Date | Type | Specialty | Care Team | Description | +--------+---------+ + + + | 09/17/ | Office | Urology | Pedro Green, | | | 2019 | Visit | | DO [address] | | | | | | [place] [address] | | | | | | [phone] | | | | | | | [...] + + | Performed at: 01 - [facility] [address], | REFERENCE LAB | | [place], [place] [id number] Cpc Coder: Ad Larose MD, Phone: | [facility] | | [phone] | | + + + + + + + + | Performing | Address | City/State/Zipcode | Phone Number | | Organization | | | | + + + + + | REFERENCE LAB | [address] | [place], [place] | [phone] | | [facility] | [facility] | [address] | | + + + + + [...] | samples are screened | uIU/mL | [facility] | | | | using a 2nd [...] [address] | [place] | [phone] | | [facility] | | [address] | | | - LABORATORY | | | | + + + + + Lactate Dehydrogenase (02/02/2017 12:30 PM PST) + +-------+ + + + | Component | Value | Ref Range | Performed | Pathologist | | | | | At | Signature | + +-------+ + + + | LDH TOTAL | 151 | 91 - 180 U/L | [facility] | | | | | | ST. [...] [address] | [place] | [phone] | | [facility] | | [address] | | | - LABORATORY | | [...] 17 | 7 - 18 mg/dL | [facility] | | | | | | [facility] | | | | | | MEDICAL | | | | | | CENTER - | | | | | | LABORATORY | | + + + + + + | Creatinine | 1.47 (H) | 0.60 - 1.30 | [facility] | | | | | mg/dL | [facility] | | | | | | MEDICAL | | | | | | CENTER - | | | | | | LABORATORY | | + + + + + + | eGFR if not | 37 (L)Comment: | >=60 | [facility] | | | | GLOMERULAR FILTRATION | mL/min/1.73m2 | [facility] | | | [facility] | RATE,ESTIMATED | | MEDICAL | | | | mL/min/1.00i1Hgzv than | | CENTER - | | [...] | | Total | | | [facility] | | [...] + | [facility] | [address] | [place] | [phone] | | [facility] | | [address] | | | - LABORATORY | | | | + + + + + CBC with Differential (02/02/2017 12:30 PM PST) + +-------+ + + + | Component | Value | Ref Range | Performed | Pathologist | | | | | At | Signature | + +-------+ + + + | WBC | 6.4 | 4.0 - 11.0 K/uL | [facility] | | | | | | [facility] | | | | | | MEDICAL | | | | | | CENTER - | | | | | | LABORATORY | | + +-------+ + + + | RBC | 3.80 | 3.70 - 5.20 | [...] + | [facility] | [address] | [place] | [phone] | | [facility] | | [address] | | | - LABORATORY | | | | + + + + + T4, Total (02/02/2017 12:30 PM PST) + +-------+ + + + | Component | Value | Ref Range | Performed | Pathologist | | | | | At | Signature | + +-------+ + + + | T4, Total | 6.9 | 4.7 - 9.8 ug/dL | [facility] | | | | | [...] [address] | [place] | [phone] | | [facility] | | [address] | | | - LABORATORY | | [...] heparin 100 units/mL flush | Given | 12/20/20 | 500 | | | | injection 500 Units 500 Units (5 | | 17 3:05 | Units | | | | mL), Intracatheter, PRN, Line | | PM PST | | | | | Care, Starting Tue02/02/17 at | | | | | | [...] | | | | | | | Tue02/02/17 at 1400, For 1 | | | | | | | dose, Keep in refrigerator. Use | | | | | | | 0.2 to 5 micron filter for | | | | | | | administration., | | | | | | + +---------+ +--------+-------+---+ +---+---+ | | | +---+---+ documented in this encounter"
--- OUTSIDE RECORDS SUMMARY | ~2019-07-09 | XMS | Encounter Summary ---
Demographics + + + | Address | [address] | | | [place] [address] | + + + | Home Phone | | + + + | Preferred Language | Unknown | + + + | Marital Status | | + + + | Mandaen Affiliation | Unknown | + + + | Race | Unknown | + + + | Ethnic Group | Unknown | + + + Author + + + | Author | [facility] | | | and [place]ardo[place] | + + + | Organization | [facility] | | | and [place] | + + + | Address | Unknown | + + + | Phone | Unavailable | + + + Support + + + + + | Name | Relationship | Address | Phone | + + + + + | Poncho Oquendo | ECON | [address] | | | | | [place] [place] | | | | | [address] | | + + + + + | Marta Upton | ECON | [place], [place] | | | | | [address] | | + + + + + Care Team Providers + +------+ + | Care Pourer Bull Ladle Name | Role | Phone | + [...] | | [address] | [address] [facility] | | | | | [place], [place] | [place] [address] | | | | | [address] | [phone] | | | | | [phone] | | | +--------+ + + + [...] | | | | | [place] [address] | | | | | | [phone] | | | | | | | | +--------+---------+ + + + documented as of this encounter Visit Diagnoses Not on filedocumented in this encounter
--- OUTSIDE RECORDS SUMMARY | ~2019-07-09 | XMS | Encounter Summary ---
Demographics + + + | Address | [address] | | | [place] [address] | + + + | Home Phone | | + + + | Preferred Language | Unknown | + + + | Marital Status | Single | + + + | Cheondoism Affiliation | NON | + + + [...] Team Providers + +------+ + | Care Mortgage Loan Funder Name | Role | Phone | + +------+ + | Tomasa Wagner | PCP | | + +------+ + Encounter Details +--------+ + + + + | Date | Type | Department | Care Team | Description | +--------+ + + + + | 07/12/ | Abstract | [facility] | Tai Stanton, | | | 2013 | | [facility] [address] | [address] | | | | | [address] | [address] | | | | | Mailcode: Center | [place], [place] | | | | | [facility] and | [address] | | | | | Healing, [address] | [phone] | | | | | [place], [place] | | | | | | [address] | | | | | | [phone] | | | +--------+ + + + [...]
--- OUTSIDE RECORDS SUMMARY | ~2019-07-09 | XMS | Encounter Summary ---
Demographics + + + | Address | [address] | | | [place] [address] | + + + | Home Phone | | + + + | Preferred Language | Unknown | + + + | Marital Status | | + + + | Hindu Affiliation | Unknown | + + + | Race | Unknown | + + + | Ethnic Group | Unknown | + + + Author + + + | Author | [facility] | | | and [place]ardo[place] | + + + | Organization | [facility] | | | and [place] | + + + | Address | Unknown | + + + | Phone | Unavailable | + + + Support + + + + + | Name | Relationship | Address | Phone | + + + + + | Poncho Oquendo | ECON | [address] | | | | | [place] | | | | | [address] | | + + + + + | Marta Upton | ECON | [place] | | | | | [address] | | + + + + + Care Team Providers + +------+ + | Care Hide Buffer Name | Role | Phone | [...] | +--------+ + + + + | 09/12/ | Telephone | [facility] | Reinaldo, | Other | | 2018 | | MED CTR MED[facility] | Epifanio Soler MD [address] | | | | | [facility] [address] | [facility] | | | | | [facility] | [place] [address] | | | | | [place] [address] | [phone] | | | | | [phone] | | | +--------+ + + + [...] [facility] | | | | | | [facility] [address] | | | | | | [phone] | | | | | | | | +--------+---------+ + + + documented as of this encounter Visit Diagnoses Not on filedocumented in this encounter"
--- OUTSIDE RECORDS SUMMARY | ~2019-07-09 | XMS | Encounter Summary ---
Demographics + + + | Address | [address] | | | [place] [address] | + + + | Home Phone | | + + + | Preferred Language | Unknown | + + + | Marital Status | Single | + + + | Adventism Affiliation | NON | + + + | Race | White | + + + | Ethnic Group | Not or | + + + Author + + + | Author | [facility] | + + + | Organization | [facility] | + + + | [...] Team Providers + +------+ + | Care Balling Machine Operator Name | Role | Phone | + +------+ + | Valeriy Carmona MD | PCP | | + +------+ + Encounter Details +--------+ + + + + | Date | Type | Department | Care Team | Description | +--------+ + + + + | 07/25/ | MyChart | [facility] | Miguel Seymour, | RE: Request for | | 2014 | Encounter | [facility] | [address] | Return to Work | | | | [address] | [address] | Authorization? | | | | [address] | [place], [place] | | | | | Alexis, [facility] floor | [address] | | | | | [place], [place] | [phone] | | | | | [address] | | | | | | [phone] | | | +--------+ + + + [...]
--- OUTSIDE RECORDS SUMMARY | ~2019-07-09 | XMS | Encounter Summary ---
Demographics + + + | Address | [address] | | | [place] [address] | + + + | Home Phone | | + + + | Preferred Language | Unknown | + + + | Marital Status | | + + + | Taoism Affiliation | Unknown | + + + | Race | Unknown | + + + | Ethnic Group | Unknown | + + + Author + + + | Author | [facility] | | | and [place]ardo[place] | + + + | Organization | [facility] | | | and [place]ardo[place] | + + + | Address | Unknown | + + + | Phone | Unavailable | + + + Support + + + + + | Name | Relationship | Address | Phone | + + + + + | Poncho Oquendo | ECON | [address] | | | | | [place] | | | | | [address] | | + + + + + | Marta Upton | ECON | [place] | | | | | [address] | | + + + + + Care Team Providers + +------+ + | Care Tennis Ball Cover Cementer Name | Role | Phone | + [...] neoplasm of | [address] | Chad Soler MD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 | [address] | [address] | | | | | (HCC) | [place] | [address] [place] | | | | | Procedures | [address] | [place] | | | | | DE OFFICE | Phone: | [phone] Phone: | | | | | OUTPATIENT | [phone] | [phone] | | | | | VISIT 25 | Fax: | Fax: | | | | | MINUTES | [phone] | [phone] | +--------+--------+ + + + + Encounter Details +--------+ + + + + | Date | Type | Department | Care Team | Description | +--------+ + + + + | 12/17/ | Hospital | [facility] | Re[place], | Gallbladder cancer, | | 2015 | Encounter | [facility] | Chad Soler MD [address] | carcinoma (HCC) | | | | [facility] CLINIC [address] [place] | (Primary Dx) | | | | [address] | [place] [address] | | | | | [place] [address] | [phone] | | | | | [phone] | | | +--------+ + + + [...] + + + | Blood Pressure | 122/84 | 12/17/2014 3:06 PM | | | | | PST | | + + + + + | Pulse | 91 | 12/17/2014 3:06 PM | | | | | PST | | + + + + + | Temperature | 37 C (98.6 F) | 12/17/2014 3:06 PM | | | | | PST | | + + + + + | Respiratory Rate | 16 | 12/17/2014 3:06 PM | | | | | PST | | + + + + + | Oxygen Saturation | 100% | 12/17/2014 3:06 PM | | | | | PST | | + + + + + | Inhaled Oxygen | - | - | | | Concentration | | | | + + + + + | Weight | 86 kg (189 lb 9.5 | 12/17/2014 3:06 PM | | | | oz) | PST | | + + + + + | Height | 162 cm (5' 3.78") | 12/17/2014 3:06 PM | | | | | PST | | + + + + + | Body Mass Index | 32.77 | 12/17/2014 3:06 PM | | | [...] +---------+--------+ + documented as of this encounter Progress Notes Chad Riggins MD - 12/17/2014 3:12 PM PSTFormatting of this note might be differe nt from the original. Hematology/Oncology Progress Note [facility] Pt. Name/Age/: Aura Upton 54 y.o. 1960 Med. Record Number: [id number] Date of admission: 12/17/2014 Identifying Statement: Aura Upton is a 54 y.o. female from [address] [place] [id number] with Recurrent Cholangiocarcinoma. The patient chart and [...] Brandon Garcia March 29, 2012, pathological specimen [id number], analyzed by Dr. Bowers of [facility] and was notable for a poorly-differentiated adenoc arcinoma of the gallbladder. Liver biopsy demonstrated mild portal inflammation. 2. On April 28, 2012, she successfully underwent an R0 resection by Dr. Tai Stanton at [facility], pathological specimen [id number] was notable for the absence of any residual carcinoma within the gallbladder bed. However, 2/8 regional lym ph nodes contained regionally metastatic disease. 3. Consultation by Dr. Elva Grey of the [facility] on May returned the recommendation for adjuvant chemoradiation therapy following [id number] as follows: Capecitabine at 750 mg/m sq [...] staging by Dr. Oziel Casillas of the [facility]. Pathological analysis was notable for 9.5 cm [...] 7. Consultation with Dr. Elva Grey the [facility] in June 26, 2014 who recommended additional chemotherapy was cisplatin at 75 mg meter squared on day 1 a nd gemcitabine 1250 mg per meter squared on day one and day 8 of acute 21 day cycle for 6-8 cycles. A second opinion was obtained by Dr. Richie Thayer of the [facility] who returned the recommendation for additional [...] chemotherapy phone the recommendations of Dr. Richie Thayer of the [facility] with gemcitabine at 1000 mg per meter squared on day one and day 8 w ith cisplatin 25 mg meter squared on day one and day 8 of a Q 21 day cycle beginning on July 26, 2014 complicated by grade 3 neutropenia and grade [address]. [address] scan of the chest, abdomen and pelvis that [facility] on September 16, 2014 demonstrated no radiographic evidence of disease. 11. Completion of 6 cycles of cisplatin/gemcitabine chemotherapy at the [facility] in [place], [place] on November 29, 2014. 12. Repeat CT scan of the chest, abdomen and pelvis that [facility] on December 17, 2014 demonstrated no radiographic evidence of disease Current Assessment & Plan Aura returned to clinic on December 17, [address] scan earlier today demonstrat es no evidence of recurrence of her cholangiocarcinoma. Plan; Cross over to observation. Follow up in two months for port draw for labs and port fl us. In the interim, she will see Dr. Richie Thayer at the [facility]. Review of Systems: Constitutional: Reports that her energy remains low. Denies fever or shaking chills, anorex ia, nausea, vomiting. Reports that she has night sweats once in awhile. Ear, Nose, Mouth, Throat: Denies odynophagia, dysphagia. Reports chronic tinnitus. Cardiovascular: Denies shortness of breath, dyspnea on exertion, chest pain, palpitations o r orthopnea. Respiratory: Reports that she has had a cough the past couple weeks that is productive of y ellow mucus. States that she thought she was getting a cold but it didn't really turn into anything. Denies hemoptysis Gastrointestinal: Reports that every once in awhile she gets pain in the area of radiation and also in her incisional area. Denies constipation, diarrhea, melena, or bright red blood per rectum. Genitourinary: Denies hematuria or dysuria. Musculoskeletal: Reports that she had been struggling with right knee pain and low back lucy n. 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 Neurologic: Reports that she gets occasional headaches. States that she has really signifi cant memory issues and has to work really hard to remember things. Denies visual changes or numbness/tingling of the extremities. Endocrine: Denies peripheral edema or heat/cold intolerance. Hematologic: Denies spontaneous bruising or bleeding. Integumentary: Denies rash, wounds or other skin concerns. Pain: Reports that she has 3/10 pain in her low back and areas of abdomen as noted above. She does use Hydrocodone for this pain prn. Note:Here today for followup and lab. She reports that she has completed 6 cycles of chemo and has had a followup CT done. Review of systems as above otherwise negative [...] Neoplasm related pain (acute) (chronic) Scheduled Medications: Current Outpatient Prescriptions Medication Sig Dispense Refill acetaminophen (TYLENOL) 500 mg tablet Take 500 mg by mouth every 4 hours as needed. amitriptyline (ELAVIL) 10 mg tablet Take 10 mg by mouth nightly. docusate calcium (SURFAK) 240 mg capsule Take 240 mg by mouth as needed. HYDROcodone-acetaminophen (VICODIN) 5-500 mg per tablet Take 1 tablet by mouth every 4 hours as needed. MULTIPLE VITAMIN PO Take by mouth Daily. ondansetron (ZOFRAN ODT) 8 mg disintegrating tablet Take 8 mg by mouth every 8 hours as needed for Nausea. Probiotic Product (PROBIOTIC DAILY PO) Take by mouth Daily. No current facility-administered medications for this encounter. Facility-Administered Medications Ordered in Other Encounters Medication Dose Route Frequency Provider Last Rate Last Dose heparin 100 units/mL flush injection 500 Units 5 mL Intercatheter PRN Chad ramirez MD 500 Units at 12/17/14 1528 Allergy: Allergies Allergen Reactions Sulfa Antibiotics Rash Objectives: Temp: 37 C (98.6 F) BP: 122/84 mmHg Pulse: 91 Resp: 16 SpO2: 100 % on Min/Max Temp past 24 hours:Temp Av C (98.6 F) Min: 37 C (98.6 F) Max: 37 C (98.6 F) No intake or output data in the 24 hours ending 12/17/14 1924 Wt. Admission: Weight: 86 kg (189 lb 9.5 oz) Wt. Current: Weight: 86 kg (189 lb 9.5 oz) Wt Readings from Last 3 Encounters: 12/17/14 86 kg (189 lb 9.5 oz) 11/22/14 83.5 kg (184 lb 1.4 oz) 10/31/14 83.5 kg (184 lb 1.4 oz) Physical Exam: Exam: General: The patient [...] in Am. J. Clin. Oncol.: Golden Gonzalez., Rodger Bro., Steven Figueroa., Birdie Bunrs., Avery, TLuis Eduardo., José Miguel Ramirez., Viraj, P .P.: Toxicity And Response Criteria [...] here or in the Assessment and Plan. Results for [facility] ( ) as of 12/17/2014 19:25 Ref. Range 12/17/2014 13:22 WBC Latest Range: 4.0-11.0 K/uL 3.5 (L) RBC: Latest Range: 3.70-5.20 M/uL 3.19 (L) Hgb Latest Range: 11.5-16.0 g/dL 10.6 (L) Hct, Final Latest Range: 34.0-47.0 % 33.1 (L) MCV Latest Range: 83.0-101.0 fL 103.8 (H) MCH Latest Range: 28.0-35.0 pg 33.4 MCHC Latest Range: 32.0-36.0 g/dL 32.2 RDW-CV Latest Range: <15.0 % 18.7 (H) Platelet Count Latest Range: 140-440 K/uL 146 MPV No range found 7.6 Absolute Neutrophils Latest Range: 1.80-8.50 K/uL 1.40 (L) Absolute Lymphocytes Latest Range: 0.60-3.20 K/uL 1.30 Absolute Monocytes Latest Range: 0.00-1.00 K/uL 0.70 Absolute Eosinophils Latest Range: 0.00-0.40 K/uL 0.10 Absolute Basophils Latest Range: 0.00-0.10 K/uL 0.10 % Neutrophils Latest Range: 45.0-82.0 % 38.7 (L) % Lymphocytes Latest Range: 20.0-45.0 % 36.3 % Monocytes Latest Range: 4.0-12.0 % 19.7 (H) % Eosinophils Latest Range: 0.0-5.0 % 3.8 % Basophils Latest Range: 0.0-1.0 % 1.5 (H) NA Latest Range: 136-149 mmol/L 138 K Latest Range: 3.5-5.1 mmol/L 3.8 CL Latest Range: 98-109 mmol/L 103 CO2 Latest Range: 24-31 mmol/L 26 ANION GAP Latest Range: 3-16 mmol/L 9 GLUCOSE Latest Range: 70-109 mg/dL 101 BUN Latest Range: 7-18 mg/dL 7 BUN/CREA No range found 10.6 CREA Latest Range: 0.60-1.30 mg/dL 0.66 ALBUMIN Latest Range: 3.2-5.0 g/dL 3.7 Albumin/Globulin ratio No range found 1.7 Total protein Latest Range: 6.0-7.8 g/dL 5.9 (L) EGFR IF NOT Latest Range: >=60 mL/min/1.73m2 >60 Calcium Latest Range: 8.3-10.5 mg/dL 8.6 ALK PHOS Latest Range: 40-110 U/L 138 (H) ALT (SGPT) (REF) Latest Range: 6-45 U/L 19 AST (SGOT) (REF) Latest Range: 10-42 U/L 30 LD TOTAL Latest Range: 91-180 U/L 242 (H) BILIRUBIN TOTAL Latest Range: 0.1-1.5 mg/dL 0.4 GLOBULIN No range found 2.2 CA-125 Latest Range: 0-35 U/mL 17 CT CHEST ABDOMEN PELVIS W CONTRAST . 12/17/2014 2:34 PM HISTORY: Evaluate metastatic cholangiocarcinoma afer a course of treatment COMPARISON: CT abdomen pelvis 09/16/[address] chest abdomen pelvis 05/22/2014 TECHNIQUE: Axial images were obtained from the base of the neck to the inferior pelvis following the uneventful intravenous administration of 100 mL Omnipaque 350 contrast. Oral contrast was administered. Multiplanar reformatted images created. RADIATION DOSE: DLP 815 mGy-cm FINDINGS: CHEST: The structures at the base of the neck are unremarkable. No pathologically enlarged mediastinal lymph nodes are evident. The esophagus is within normal limits. The trachea is within normal limits. The aorta and branching vessels are within normal limits. The pulmonary arterial structures are within normal limits. Catheter from indwelling medication port in the left upper chest seen extending into the superior vena cava. The heart is within normal limits, without pericardial effusion. Lungs are clear, without pulmonary nodule or other abnormal opacification. No pleural effusion or pneumothorax is seen. ABDOMEN/PELVIS: Left-sided Bochdalek hernia again seen, with fat extending into the intrathoracic space posteriorly. Gallbladder is surgically absent. Multiple surgical clips seen at the inferior margin of the liver extending towards the estevan hepatis. Liver is otherwise unremarkable in appearance. There is prominence of the common bile duct, measuring up to 8mm in diameter, not unexpected post cholecystectomy. There is atrophic change of the pancreas, which is otherwise unremarkable in appearance. Solitary calcified granuloma again seen in the spleen, which is otherwise unremarkable. Adrenal glands are within normal limits. Both kidneys are within normal limits, without stone or hydronephrosis. No ureteral abnormalities. The stomach and duodenum are within normal limits. Note is made of multiple small bowel loops closely applied to the anterior abdominal wall, likely related to adhesions. Small bowel is otherwise unremarkable. There is diverticulosis of the colon, without evidence of wall thickening or inflammatory change to suggest diverticulitis. The ileocecal junction is within normal limits. The appendix is within normal limits. There is no free intraperitoneal air or fluid. No pathologically enlarged abdominal or pelvic lymph nodes. There is scattered calcification of the abdominal aorta. Abdominal and pelvic vasculature is otherwise unremarkable. The bladder is unremarkable. Uterus and adnexal structures are absent, without evidence of residual or recurrent abnormality. MUSCULOSKELETAL: No overt lytic or blastic lesions are seen. Mild degenerative change is seen at the hips. Postsurgical change seen in the midline abdominal soft tissues, without evidence of complication. IMPRESSION - Stable postoperative changes at the inferior aspect of the liver, without evidence of recurrent malignancy. Surgically absent uterus and adnexal structures, without evidence of residual or recurrent abnormality. Multiple small bowel loops closely applied to the anterior abdominal wall, likely related to adhesion formation. Small bowel is otherwise unremarkable. Diverticulosis without evidence of diverticulitis. Dictated and Signed by: Axel Aggarwal MD Electronically signed: 12/17/2014 5:30 PM Pharmacovigilance: No current IDT available for review Palliative Care: Patient's Medications New Prescriptions No medications on file Modified Medications No medications on file Discontinued Medications DEXAMETHASONE (DECADRON) 4 MG TABLET Take one tablet PO as directed. FISH OIL 1,000 MG CAPSULE Take 1,000 mg by mouth Daily. Procedure: None perfomed. CHAD RIGGINS MD Portions of this chart may have been created with [employer] voice recognition software. Occasi onal wrong-word or [...] 2019 | Visit | | DO [address] | | | | | | [place] [address] | | | | | | [phone] | | | | | | | | +--------+---------+ + + + + +------+--------+ + + | Name | Type | Priori | Associated Diagnoses | Order Schedule | | | | ty | | | + +------+--------+ + + | CBC w/ Auto | Lab | STAT | Gallbladder | 1 Occurrences | | Differential | | | cancer, carcinoma | starting 12/17/2014 | | | | | (HCC) | until 12/17/2015 | + +------+--------+ + + | Comprehensive | Lab | STAT | Gallbladder | 1 Occurrences | | Metabolic Panel | | | cancer, carcinoma | starting 12/17/2014 | | | | | (HCC) | until 12/17/2015 | + +------+--------+ + + | Lactate | Lab | STAT | Gallbladder | 1 Occurrences | | Dehydrogenase | | | cancer, carcinoma | starting 12/17/2014 | | | | | (HCC) | until 12/18/2015 | + +------+--------+ + + | CEA | Lab | STAT | Gallbladder | 1 Occurrences | | | | | cancer, carcinoma | starting 12/17/2014 | | | | | (HCC) | until 12/18/2015 | + +------+--------+ + + | CA 19-9, Quant | Lab | STAT | Gallbladder | 1 Occurrences | | | | | cancer, carcinoma | starting 12/17/2014 | | | | | (HCC) | until 12/18/2015 | + +------+--------+ + + documented as of this encounter Visit Diagnoses + + | Diagnosis | + + | Gallbladder cancer, 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
--- OUTSIDE RECORDS SUMMARY | ~2019-07-09 | XMS | Encounter Summary ---
Demographics + + + | Address | [address] | | | [place] [address] | + + + | Home Phone | | + + + | Preferred Language | Unknown | + + + | Marital Status | | + + + | Yazdanism Affiliation | Unknown | + + + | Race | Unknown | + + + | Ethnic Group | Unknown | + + + Author + + + | Author | [facility] | | | and [place]ardo[place] | + + + | Organization | [facility] | | | and [place] | + + + | Address | Unknown | + + + | Phone | Unavailable | + + + Support + + + + + | Name | Relationship | Address | Phone | + + + + + | Poncho Oquendo | ECON | [address] | | | | | [place] | | | | | [address] | | + + + + + | Marta Upton | ECON | [place] | | | | | [address] | | + + + + + Care Team Providers + +------+ + | Care Agency Operator Name | Role | Phone | [...] | | | ONCOLOGY CLINIC [address] | [facility] | | | | | [address] [facility] | [place] [address] | | | | | [place] [address] | [phone] | | | | | [phone] | | | +--------+ + + + [...] [place] | | | | | | [facility] [place] [address] | | | | | | [phone] | | | | | | | | +--------+---------+ + + + documented as of this encounter Visit Diagnoses Not on filedocumented in this encounter"
--- OUTSIDE RECORDS SUMMARY | ~2019-07-09 | XMS | Encounter Summary ---
Demographics + + + | Address | [address] | | | [place] [address] | + + + | Home Phone [...] + + + | Author | [facility] | + + + | Organization | [facility] | + + + | [...] Team Providers + +------+ + | Care Hemstitcher Name | Role | Phone | + [...] | | 2012 | | Oncology at [facility] | [address] | Question | | | | [address] | [facility] [address] | | | | | Mailcode: CH[address]M | [place] [address] | | | | | [facility] | [phone] | | | | | and [place]ny, | | | | | | [place] [address] | | | | | | [place], [place] | | | | | | [address] | | | | | | [phone] | | | +--------+ + + + [...]
--- OUTSIDE RECORDS SUMMARY | ~2019-07-09 | XMS | Encounter Summary ---
Demographics + + + | Address | [address] | | | [place] [address] | + + + | Home Phone | | + + + | Preferred Language | Unknown | + + + | Marital Status | | + + + | Restorationist Affiliation | Unknown | + + + | Race | Unknown | + + + | Ethnic Group | Unknown | + + + Author + + + | Author | [facility] | | | and Eduardo[place] | + + + | Organization | [facility] | | | and Eduardoana | + + + | Address | Unknown | + + + | Phone | Unavailable | + + + Support + + + + + | Name | Relationship | Address | Phone | + + + + + | Poncho Oquendo | ECON | [address] | | | | | [facility], [place] | | | | | [address] | | + + + + + | Marta Upton | ECON | [place], [place] | | | | | [address] | | + + + + + Care Team Providers + +------+ + | Care Auto Air Conditioning Apprentice Name | Role | Phone | + +------+ + PCP | Unavailable | + +------+ + Encounter Details +--------+ + + + + | Date | Type | Department | Care Team | Description | +--------+ + + + + | 01/15/ | Hospital | [facility] | | | | 2012 - | Encounter | [facility] | | | | | | [facility] [address] | | | | 02/13/ | | [place] | | | | 2012 | | [address] | | | | | | [phone] | | | +--------+ + + + [...] [address] | | | | | | [place] [address] | | | | | | [phone] | | | | | | | | +--------+---------+ + + + documented as of this encounter Procedures + +--------+ + + + | Procedure Name | Priori | Date/Time | Associated Diagnosis | Comments | | | ty | | | | + +--------+ + + + | CA 19-9, QUANT | Routin | 01/15/2013 | | Results for this | | | e | 8:02 AM | | procedure are in the | | | | PST | | results section. | + +--------+ + + + | CBC WITH | Routin | 01/15/2013 | | Results for this | | DIFFERENTIAL | e | 8:02 AM | | procedure are in the | | | | PST | | results section. | + +--------+ + + + | LACTATE | Routin | 01/15/2013 | | Results for this | | DEHYDROGENASE | e | 8:02 AM | | procedure are in the | | | | PST | | results section. | + +--------+ + + + | COMPREHENSIVE | Routin | 01/15/2013 | | Results for this | | METABOLIC PANEL | e | 8:02 AM | | procedure are in the | | | | PST | | results section. | + +--------+ + + + documented in this encounter Results CBC with Differential (01/15/2013 8:02 AM PST) + + + + + + [...] + + + + | WBC | 3.7 (L) | 4.0 - 11.0 K/uL | [facility] - | | | | | | LABORATORY | | + + + + + + | RBC | 4.67 | 3.70 - 5.20 | [facility] | [...] + + + + | Hematocrit | 43.3 | 34.0 - 47.0 % | [facility] | [facility] | [facility] | [facility] | | | | | | [facility] - | | | | | | LABORATORY | | + + + + + + | MCV | 92.6 | 83.0 - 101.0 fL | [facility] | | | [facility] | [facility] | [facility] | [facility] | | | | | | [facility] - | | | | | | LABORATORY | | + + + + + + | MCH | 31.5 | 28.0 - 35.0 pg | [facility] | | | | | [facility] | | [facility] | [facility] | | [facility] - | | | | | | LABORATORY | | + + + + + + | MCHC | 34.0 | 32.0 - 36.0 | [facility] | | | | | g/dL | [facility] | | | | | | [facility] | | | | | | CENTER - | | | | | | LABORATORY | | + + + + + + | RDW-CV | 12.5 | <15.0 % | [facility] | | | | | [facility] | | | | [facility] | [facility] | | | | | | [facility] - | | | | | | LABORATORY | | + + + + + + | Platelet | 176 | 140 - 440 K/uL | [facility] | | | Count | | | [facility] | | | | | | [facility] | | | | | | CENTER - | | | | | | LABORATORY | | + + + + + + | % | 45.9 | 45 - 75 % | [facility] | | | Neutrophils | | | [facility] | | | | | | [facility] | | | | | | CENTER - | | | | | | LABORATORY | | + + + + + + | % | 32.1 | 20 - 45 % | [facility] | | | Lymphocytes | | | [facility] | | | | | | [facility] | | | | | | CENTER - | | | | | | LABORATORY | | + + + + + + | % Monocytes | 13.6 (H) | 4 - 12 % | [facility] | | | | | | [facility] | | | | | | [facility] | | | | | | [facility] - | | | | | | LABORATORY | | + + + + + + | % | 7.3 (H) | 0 - 5 % | [facility] | | | Eosinophils | | | [facility] | | | | | | [facility] | | | | | | CENTER - | | | | | | LABORATORY | | + + + + + + | % Basophils | 1.1 (H) | 0 - 1 % | [facility] | | | | [facility] | | [facility] | | | | [facility] - | | | | | | LAB[facility]ATORY | | + + + + + + | Absolute | 1.7 | 1.5 - 6.6 K/uL | [facility] | | | Neutrophils | | | [facility] | | | | | | [facility] | | | | | | [facility] - | | | | | | LABORATORY | | + + + + + + | Absolute | 1.2 | 0.6 - 3.2 K/uL | [facility] | | | Lymphocytes | | | [facility] | | | | | | [facility] | | | | | | [facility] - | | | | | | LABORATORY | | + + + + + + | Absolute | 0.5 | 0.0 - 1.0 K/uL | [facility] | | | Monocytes | | | [facility] | | | | | | [facility] | | | | | | CENTER - | | | | | | LABORATORY | | + + + + + + | Absolute | 0.3 | 0.0 - 0.4 K/uL | [facility] | | | Eosinophils | | | [facility] | | | | | | [facility] | | | | | | CENTER - | | | | | | LABORATORY | | + + + + + + | Absolute | 0.0 | 0.0 - 0.1 K/uL | [facility] | | | Basophils | | | [facility] | | [...] + | [facility] | [address] | [place] | [phone] | | [facility] | | [address] | | | - LABORATORY | | | | + + + + + | [facility] | [address] | [place] | | | [facility] | | [address] | | | - LABORATORY | | | | + + + + + CA 19-9, Quant (01/15/2013 8:02 AM PST) + + + + + + [...] | | | | [address], [place] | | | | | | [address] CLIA: | | | | | | [id number] | | | | + + + + + + + + | Specimen | + + | | + + + + + + + | Performing | Address | City/State/Zipcode | Phone Number | | Organization | | | | + + + + + | [facility] | [address] | [place] | [phone] | | [facility] | | [address] | | | - LABORATORY | | | | + + + + + | [facility] | [address] | [place] | | | [facility] | | [address] | | | - LABORATORY | | | | + + + + + Comprehensive Metabolic Panel (01/15/2013 8:02 AM PST) + + + + + + | Component | Value | Ref Range | Performed | Pathologist | | | | | At | Signature | + + + + + + | Glucose | 96 | 70 - 109 mg/dL | [facility] | | | | | | [facility] | | | | | | MEDICAL | | | | | | CENTER - | | | | | | LABORATORY | | + + + + + + | Calcium | 9.3 | 8.3 - 10.5 | [facility] | | | | | mg/dL | [facility] | | | | | | MEDICAL | | | | | | CENTER - | | | | | | LABORATORY | | + + + + + + | Alkaline | 168 (H) | 40 - 110 IU/L | [facility] | | | Phosphatase | | | [facility] | | | | | | MEDICAL | | | | | | CENTER - | | | | | | LABORATORY | | + + + + + + | AST | 28 | 10 - 42 IU/L | [facility] | | | | | | [facility] | | | | | | MEDICAL | | | | | | CENTER - | | | | | | LABORATORY | | + + + + + + | ALT | 18 | 6 - 45 IU/L | [facility] [...] + + + + | Total | 6.8 | 6.0 - 7.8 gm/dL | [facility] | | | Protein | | | [facility] | | | | | | MEDICAL | | | | | | CENTER - | | | | | | LABORATORY | | + + + + + + | Albumin | 3.9 | 3.2 - 5.0 gm/dL | [facility] | | | | | | [facility] | | | | | | MEDICAL | | | | | | CENTER - | | | | | | LABORATORY | | + + + + + + | BUN | 11 | 7 - 18 mg/dL | [facility] | | | | | | [facility] | | | | | | [facility]ICAL | | | | | | CENTER - | | | | | | LABORATORY | | + + + + + + | Creatinine | 0.77 | 0.60 - 1.30 | [facility] | | | | | mg/dL | [facility] | | | | | | MEDICAL | | | | | | CENTER - | | | | | | LABORATORY | | + + + + + + | Estimated | >60Comment: For | >60 mL/min/A | [facility] | | | GFR | -Americans, | [...] + + + + | BUN/Creatin | 14.3 | 12 - 20 | [facility] | [...] + | [facility] | [address] | [place], [place] | [phone] | | [facility] | | [address] | | | - LABORATORY | | | | + + + + + | [facility] | [address] | [place], [place] | | | [facility] | | [address], [place] | | | - LABORATORY | | | | + + + + + Lactate Dehydrogenase (01/15/2013 8:02 AM PST) + +-------+ + + + | Component | Value | Ref Range | Performed | Pathologist | | | | | At | Signature | + +-------+ + + + | LDH TOTAL | 158 | 91 - 180 IU/L | [facility] [...] [address] | [place] | [phone] | | [facility] | | [address] | | | - LABORATORY | | | | + + + + + | [facility] | [address] | [place] | | | [facility] | | [address] | | | - LABORATORY | | | | + + + + + documented in this encounter Visit Diagnoses Not on filedocumented in this encounter"
--- OUTSIDE RECORDS SUMMARY | ~2019-07-09 | XMS | Encounter Summary ---
Demographics + + + | Address | [address] | | | [place] [address] | + + + | Home Phone | | + + + | Preferred Language | Unknown | + + + | Marital Status | Single | + + + | Jew Affiliation | NON | + + + [...] Team Providers + +------+ + | Care Lotus Notes Developer Name | Role | Phone | + +------+ + | Valeriy Carmona MD | PCP | | + +------+ + Encounter Details +--------+ + + + + | Date | Type | Department | Care Team | Description | +--------+ + + + + | 06/26/ | Telephone | [facility] | Alma Delia Betancourt, | | | 2014 | | Clinics at S | [place], [place] | | | | | [facility] | [address] | | | | | for Health and | | | | | | Healing [address] | | | | | | [place], [place] | | | | | | [address] | | | | | | [phone] | | | +--------+ + + + [...]
--- OUTSIDE RECORDS SUMMARY | ~2019-07-09 | XMS | Encounter Summary ---
Demographics + + + | Address | [address] | | | [place] [address] | + + + | Home Phone [...] + + + | Author | [facility] | + + + | Organization | [facility] | + + + | [...] Team Providers + +------+ + | Care Abatement Worker Name | Role | Phone | + +------+ + PCP | Unavailable | + +------+ + Encounter Details +--------+ + + + + | Date | Type | Department | Care Team | Description | +--------+ + + + + | 04/07/ | Abstract | [facility] | Tai Stanton, | | | 2012 | | [place] [facility] [address] | [address] | | | | | [address] | [address] | | | | | Mailcode: [place] | [place], [place] | | | | | for Health and | [address] | | | | | [place] [address] | [phone] | | | | | [place], [place] | | | | | | [address] | | | | | | [phone] | | | +--------+ + + + [...]
--- OUTSIDE RECORDS SUMMARY | ~2019-07-09 | XMS | Encounter Summary ---
Demographics + + + | Address | [address] | | | [place] [address] | + + + | Home Phone | | + + + | Preferred Language | Unknown | + + + | Marital Status | Single | + + + | Confucianism Affiliation | NON | + + + [...] Team Providers + +------+ + | Care Materials Manager Name | Role | Phone | [...] & | Diagnoses | Non-[facility] | [facility] Clinical Project Manager Onc | | | | Gynecology | Complex | Epic Dept | [facility] [address] | | | | | Cystic Mass, | | [address] | | | | | elevated | | [place] | | | | | [address] per | | Pavilion, 7th | | | | | appt notes | | floor | | | | | | | [place], [place] | | | | | | | [address] | | | | | | | Phone: | | | | | | | [phone] | | | | | | | Fax: | | | | | | | [phone] | +--------+--------+ + + + + Encounter Details +--------+---------+ + + + | Date | Type | Department | Care Team | Description | +--------+---------+ + + + | 05/21/ | Office | [facility] | Miguel Seymour, | 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 Patient seen and discussed with Dr. Kandis [...] unit/mL | GRAY - | | | TRICIA | | | AIRPORT - | | [...] + | GRAY - AIRPORT - | [address] | [place] [address] | | | [place] | | | | + + + [...] # | | | | | | [id number]. Received 2 | | | | | [...] | + + + + + | [facility] | [address] | [place] [address] | | | PATHOLOGY | [address] [...]
--- OUTSIDE RECORDS SUMMARY | ~2019-07-09 | XMS | Encounter Summary ---
Demographics + + + | Address | [address] | | | [place] [address] | + + + | Home Phone | | + + + | Preferred Language | Unknown | + + + | Marital Status | Single | + + + | Jainism Affiliation | NON | + + + | Race | White | + + + | Ethnic Group | Not or | + + + Author + + + | Author | [facility] | + + + | Organization | [facility] | + + + | [...] Providers + +------+ + | Care Is Project Manager Name | Role | Phone | [...] Pharmacy | | | | | | [address] | | | | | | [address] [place], [place] | | | | | | [address] | | | | | | [phone] | | | +--------+ + + + [...]
--- OUTSIDE RECORDS SUMMARY | ~2019-07-09 | XMS | Encounter Summary ---
Demographics + + + | Address | [address] | | | [place] [address] | + + + | Home Phone | | + + + | Preferred Language | Unknown | + + + | Marital Status | | + + + | Baptism Affiliation | Unknown | + + + | Race | Unknown | + + + | Ethnic Group | Unknown | + + + Author + + + | Author | [facility] | | | and Eduardoana | + + + | Organization | [facility] | | | and Eduardoana | + + + | Address | Unknown | + + + | Phone | Unavailable | + + + Support + + + + + | Name | Relationship | Address | Phone | + + + + + | Poncho Oquendo | ECON | [address] | | | | | [facility], [place] | | | | | [address] | | + + + + + | Marta Upton | ECON | [place] | | | | | [address] | | + + + + + Care Team Providers + +------+ + | Care Box Hinge And Lock Attacher Name | Role | Phone | + [...] 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, | [address]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 | MD [address] | [place], | | | | | (HCC) | [address] | [place] [address] | | | | | Procedures | [place], | Phone: | | | | | [place] | [place] [address] | [phone] | | | | | DIPHENHYDRAM | Phone: | Fax: | | | | | INE HCL | [phone] | [phone] | | | | | INJECTIO, 50 | Fax: | | | | | | MG [place] | [phone] | | | | | | ONDANSETRON | | | | | | | HCL | | | | | | | INJECTION, 1 | | | | | | | MG DE | | | | | | | DEXAMETHASON | | | | | | | E SODIUM | | | | | | | PHOS, 1 MG | | | | | | | DE | | | | | | | FOSAPREPITAN | | | | | | | T INJECTION, | | | | | | | 1 MG DE | | | | | | | LORAZEPAM | | | | | | | INJECTION, 2 | | | | | | | MG DE | | | | | | | GEMCITABINE | | | | | | | HCL | | | | | | | INJECTION, | | | | | | | 200 MG DE | | | | | | | CISPLATIN 10 | | | | | | | MG | | | | | | | INJECTION | | | | | | | DE | | | | | | | METHYLPREDNI | | | | | | | SOLONE | | | | | | | INJECTION, | | | | | | | 125 MG DE | | | | | | | ADRENALIN | | | | | | | EPINEPHRINE | | | | | | | INJECT, .1 | | | | | | | MG DE | | | | | | | FILGASTIM | | | | | | | (ZARXIO) 300 | | | | | | | MCG/0.5ML | | | | | | | SOSY, PER 1 | | | | | | | MCG DE | | | | | | | INJECTION, | | | | | | | FAMOTIDINE, | | | | | | | 20 MG DE | | | | | | | NORMAL | | | | | | | SALINE | | | | | | | SOLUTION | | | | | | | INFUS, 500 | | | | | | | ML DE | | | | | | | NORMAL | | | | | | | SALINE | | | | | | | SOLUTION | | | | | | | INFUS, 250 | | | | | | | ML DE | | | | | | | STERILE | | | | | | | WATER/SALINE | | | | | | | , 10 ML DE | | | | | | | CHEMOTHER, | | | | | | | IV PUSH,EA | | | | | | | ADD DRUG DE | | | | | | | CHEMOTHER, | | | | | | | IV INFUSION, | | | | | | | 1 HR DE | | | | | | | CHEMOTHER, | | | | | | | IV INFUSION, | | | | | | | EA HR DE | | | | | | | CHEMOTHER,NO | | | | | | | N-HORMONE | | | | | | | ANTI-NEOPL, | | | | | | | SUB-Q/IM DE | | | | | | | [...] + + | 05/27/ | Hospital | [facility] | Vladimir Robles, | Canceled (Clinic | | 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 | MED CTR CHEMO | MD [address] | and/or Provider | | | | INFUSION [address] [place], | Cancellation) | | | | [place], | [place] [address] | | | | | [place] [address] | [phone] | | | | | [phone] | | | +--------+ + + + [...] | | | | | [place] [address] | | | | | | [phone] | | | | | | | | +--------+---------+ + + + documented as of this encounter Visit Diagnoses Not on filedocumented in this encounter"
--- OUTSIDE RECORDS SUMMARY | ~2019-07-09 | XMS | Encounter Summary ---
Demographics + + + | Address | [address] | | | [place] [address] | + + + | Home Phone | | + + + | Preferred Language | Unknown | + + + | Marital Status | Single | + + + | Buddhism Affiliation | NON | + + + | Race | White | + + + | Ethnic Group | Not or | + + + Author + + + | Author | [facility] | + + + | Organization | [facility] | + + + | [...] Team Providers + +------+ + | Care Residential Green Building Designer Name | Role | Phone | + +------+ + | Prudencio Isaac MD | PCP | | + +------+ + Encounter Details +--------+------+ + + + | Date | Type | Department | Care Team | Description | +--------+------+ + + + | 04/12/ | Lab | [facility] | | Gallbladder cancer | | 2012 | | [address] | | (HCC) | | | | [place], [place] | | | | | | [address] | | | | | | [phone] | | | +--------+------+ + + + [...] [facility] | [address] | [place] [address] | | | SERVICES, CORE | PARK [...] by | | | | | | [employer] | | | | | | [address], [facility] | | | | | | [address] | | | | | | [phone]. | | | | | | [facility], [place], | | | [...] [facility] | [address] | [place], [place] | | | [facility] | | [address] | | + + + + + [...] [facility] | | | | | | Laboratories,[address] | | | | | | [facility], [facility] [address] | | | | | | [phone]. | | | | | | [place], [...] [facility] | [address] | [place], [place] | | | [facility] | | [address] | | + + + + + [...] | + + + + + | [facility] | [address] | [place] [address] | | | SERVICES, CORE | NEAL [...] (H) | 60 - 99 mg/dL | [facility] | | | PLASMA | | | LABORATORY | | | (LAB) | | | SERVICES, | | | | | | [facility] | | | | | | HEALTH [...] | | | LABORATORY | | | PANAMANIAN | | | SERVICES, | | | [...] SERVICES, | | | | | | [facility] | | | | | | [...] + + + | [facility] | [address] | [place] [address] | | | SERVICES, [facility] | | | | | HEALTH + HEALING | | | | + + + + + documented in this encounter Visit Diagnoses + + | Diagnosis | + + | Gallbladder cancer (HCC) Malignant neoplasm of gallbladder | + + documented in this encounter"
--- OUTSIDE RECORDS SUMMARY | ~2019-07-09 | XMS | Encounter Summary ---
Demographics + + + | Address | [address] | | | [place] [address] | + + + | Home Phone [...] Team Providers + +------+ + | Care Hat Copyist Name | Role | Phone | + +------+ + | Tomasa Wagner | PCP | | + +------+ + Reason for Visit + + + | Reason | Comments | + + + | Follow-up visit | | + + + Consultation (Routine) +--------+--------+ + + + + | Status | Reason | Specialty | Diagnoses / | Referred By | Referred To | | | | | Procedures | Contact | Contact | +--------+--------+ + + + + | Closed | | Hematology & | | Roopa Stanton | | | | Oncology | | MD Tai | [facility] | | | | | | [address] | [address] | | | | | | [address] | Ave | | | | | | Rd | Mailcode: | | | | | | [place], [place] | [facility] | | | | | | [address] | for Health | | | | | | Phone: | and Healing, | | | | | | [phone] | Building 1, | | | | | | Fax: | 7th Floor | | | | | | [phone] | [place], [place] | | | | | | | [address] | | | | | | | Phone: | | | | | | | [phone] | | | | | | | Fax: | | | | | | | [phone] | +--------+--------+ + + + + Encounter Details +--------+---------+ + + + | Date | Type | Department | Care Team | Description | +--------+---------+ + + + | 11/01/ | Office | Hematology/Medical | Elva Grey, | Gallbladder cancer | | 2013 | Visit | Oncology at [facility] | [address] | (HCC) (Primary Dx) | | | | [address] | [address] | | | | | Mailcode: CH7M | [place] [address] | | | | | [facility] | [phone] | | | | | and Healing, | | | | | | [facility] 1, 7th | | | | | | Floor [place], [place] | | | | | | [address] | | | | | | [phone] | | | +--------+---------+ + + + [...] + + + | Blood Pressure | 101/61 | 11/01/2012 12:34 PM | | | | | PDT | | + + + + + | Pulse | 83 | 11/01/2012 12:34 PM | | | | | PDT | | + + + + + | Temperature | 36.4 C (97.6 F) | 11/01/2012 12:34 PM | | | | | PDT | | + + + + + | Respiratory Rate | 12 | 11/01/2012 12:34 PM | | | | | PDT | | + + + + + | Oxygen Saturation | 99% | 11/01/2012 12:34 PM | | | | | PDT | | + + + + + | Inhaled Oxygen | - | - | | | Concentration | | | | + + + + + | Weight | 78.9 kg (174 lb) | 11/01/2012 12:34 PM | | | | | PDT | | + + + + + | Height | - | - | | + + + + + | Body Mass Index | 29.87 | 06/21/2012 4:04 PM | | | | | PDT | | + + + + + documented in this encounter Progress Notes Elva Grey Md - 11/01/2012 11:15 AM PDTFormatting of this note might be different from kermit moran original. Onc Hx: T2N1M0 gallbladder cancer, s/p R0 resection - [...] negative for malignancy - Adjuvant chemotherapy recommended: [place]/Cap for 4 cycles then restaging - 09/13/12-10/23/12 Chemoradiation with [place] - 09/28/12 abd ultrasound- post-surgical changes, no evidence of recurrence Interval History: Aura Upton returns to clinic today for Chief Complaint Patient presents with Follow-up visit Since the last clinic visit, patient reports she was able to tolerate adjuvant chemotherapy well. She had some mild hair loss with chemo, mild waves of nausea, taking zofran for this . She just finished radiation about 2 weeks. She had a seroma post op, this got worse with the start of the radiation. This led to an ultrasound, this was normal. No admission to [facility], had some neupogen shots during her course. 17 pages of outside records reviewed today. Past Medical History Diagnosis Date Chronic back pain greater than 3 months duration Family Hx- reviewed, see scanned document History Substance Use Topics Smoking status: Former Smoker -- 0.50 packs/day for 25 years Types: Cigarettes Quit date: 02/14/2006 Smokeless tobacco: Never Used Alcohol Use: 0.5 oz/week 1 Glasses of wine per week 2-3 glasses of wine per month. Current Outpatient Prescriptions Medication Sig acetaminophen 500 mg Oral tablet Take 1 Tab by mouth every four hours as needed for mod erate pain. DOCUSATE CALCIUM (STOOL SOFTENER ORAL) Take by mouth. HYDROcodone-acetaminophen (NORCO) 5-325 mg Oral tablet Take 1 Tab by mouth every four h ours as needed. Not to exceed 10 tablets per any 24 hour period. (Not to exceed 3250 mg of a cetaminophen from all products per 24 hour period.) lidocaine 5 %(700 mg/patch) Topical Adhesive Patch, Medicated Apply 1 Patch to skin onc e daily. Apply patch to most painful area; Patch may remain in place for up to 12 hours in a dc 24-hour period. ondansetron ODT 4 mg Oral tablet,disintegrating Take 1 Tab by mouth every twelve hours as needed. senna-docusate 8.6-50 mg Oral tablet Take 1 Tab by mouth two times daily. Stop taking i f having loose bowel movements. Indications: CONSTIPATION No current facility-administered medications for this visit. Review of Systems: Remaining 10 systems reviewed, see scanned document Physical Examination: BP 101/61 | Pulse 83 | Temp (Src) 36.4 C (97.6 F) (Forehead) | RR 12 | Wt 78.926 kg (17 4 lb) | SpO2 99% | BMI 29.85 kg/(m^2) ECOG PS: 1 Gen: Well-developed, well-nourished, ambulatory, in no distress [...] non-tender, non-distended, normal bowel sounds, no hepatosplenomegaly, mild ful lness at the upper abdominal incision Extr: No edema, calf pain Labs: 10/19/12 Ca 19-9 11 Cr 0.9 Tb 0.8 Wbc 2.7 plt normal Imaging: Plan/ Recommendations: 1. Resected GB cancer, s/p adjuvant chemotherapy and chemoradiation - she has follow up in January with med onc and rad onc, with imaging planned - I would agree with this, the January scan will provide a new baseline study, then recomm end imaging every 6 months for the first 2 yrs, with CA 19-9 every 3 months. There are not imaging or lab guidelines for this disease, but this is a reasonable schedule. - we talked about what recurrence would mean, that this would likely be stage IV disease, t hat chemotherapy in the future would be palliative - I addressed her concerns about diet and living a healthy lifestyle, I did not recommend a dc specific supplementation. Return if symptoms worsen or fail to improve. Will have follow up locally [facility] Plan of Treatment Not on filedocumented as of this encounter Procedures + +--------+ + + + | Procedure Name | Priori | Date/Time | Associated Diagnosis | Comments | | | ty | | | | + +--------+ + + + | RADIOLOGY | | 11/01/2012 | | Results for this | | | | 12:00 AM | | procedure are in the | | | | PDT | | results section. | + +--------+ + + + | LAB REPORTS | | 10/19/2012 | | Results for this | | | | 12:00 AM | | procedure are in the | | | | PDT | | results section. | + +--------+ + + + documented in this encounter Results RADIOLOGY (11/01/2012 12:00 AM PDT) + + + | Narrative | Performed At | + + + | | | | | | + + + + + | Procedure Note | + + | Other, Faculty - 12/27/2012 7:08 AM PST | + + LAB REPORTS (10/19/2012 12:00 AM PDT) + + + | Narrative | Performed At | + + + | | | | | | + + + + + | Procedure Note | + + | Yamila Benitez - 12/27/2012 7:07 AM PST | + + documented in this encounter Visit Diagnoses + + | Diagnosis | + + | 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
--- OUTSIDE RECORDS SUMMARY | ~2019-07-09 | XMS | Encounter Summary ---
Demographics + + + | Address | [address] | | | [place] [address] | + + + | Home Phone [...] Team Providers + +------+ + | Care Stem Cutter Name | Role | Phone | + +------+ + | Valeriy Carmona MD | PCP | | + +------+ + Encounter Details +--------+--------+ + + + | Date | Type | Department | Care Team | Description | +--------+--------+ + + + | 12/23/ | Intake | Transfer Center | | N/A | | 2018 | | [address] | | | | | | [place] | | | | | | [place] [address] | | | +--------+--------+ + + + [...]
--- OUTSIDE RECORDS SUMMARY | ~2019-07-09 | XMS | Encounter Summary ---
Demographics + + + | Address | [address] | | | [place] [address] | + + + | Home Phone [...] Providers + +------+ + | Care Automatic Quilling Machine Operator Name | Role | Phone | + +------+ + | Tomasa Wagner | PCP | | + +------+ + Encounter Details +--------+ + + + + | Date | Type | Department | Care Team | Description | +--------+ + + + + | 06/12/ | Telephone | Digestive Health | Tai Stanton, | | | 2012 | | Center at [facility] [address] | [address] | | | | | [address] | [address] | | | | | Mailcode: Center | [place], [place] | | | | | for Health and | [address] | | | | | Healing, Building [address] | [phone] | | | | | [place], [place] | | | | | | [address] | | | | | | [phone] | | | +--------+ + + + [...]
--- OUTSIDE RECORDS SUMMARY | ~2019-07-09 | XMS | Encounter Summary ---
Demographics + + + | Address | [address] | | | [place] [address] | + + + | Home Phone [...] Team Providers + +------+ + | Care Planning Coordinator Name | Role | Phone | [...] [place] | | | | | at [facility] | [facility] | | | | | [address] | [place] [address] | | | | | [address] | | | | | | [place], 2nd floor | | | | | | [place], [place] | | | | | | [address] | | | | | | [phone] | | | +--------+ + + + [...] view image for the detailed interpretation from [employer] results. | CARDIOLOGY | + + + + + + + + | Performing | Address | City/State/Zipcode | Phone Number | | Organization | | | | + + + + + | [facility] | [address] | [place], [place] | | | CARDIOLOGY | [address] | [address] | | + + + + + documented in this encounter Visit Diagnoses Not on filedocumented in this encounter
--- OUTSIDE RECORDS SUMMARY | ~2019-07-09 | XMS | Encounter Summary ---
Demographics + + + | Address | [address] | | | [place] [address] | + + + | Home Phone | | + + + | Preferred Language | Unknown | + + + | Marital Status | Single | + + + | Restorationist Affiliation | NON | + + + [...] Team Providers + +------+ + | Care Shuttle Operator Name | Role | Phone | [...] | Elva Grey, | Questionnaire | | 2014 | on | Clinics at S | [address] | (distress); | | | | [facility] | Road [address] | Questionnaire | | | | for Health and | [place] [address] | | | | | Healing [address] | [phone] | | | | | [place], [place] | | | | | | [address] | | | | | | [phone] | | | +--------+ + + + [...]
--- OUTSIDE RECORDS SUMMARY | ~2019-07-09 | XMS | Encounter Summary ---
Demographics + + + | Address | [address] | | | [place] [address] | + + + | Home Phone | | + + + | Preferred Language | Unknown | + + + | Marital Status | | + + + | Confucianism Affiliation | Unknown | + + + | Race | Unknown | + + + | Ethnic Group | Unknown | + + + Author + + + | Author | [facility] | | | and Eduardo[place] | + + + | Organization | [facility] | | | and Eduardoana | + + + | Address | Unknown | + + + | Phone | Unavailable | + + + Support + + + + + | Name | Relationship | Address | Phone | + + + + + | Poncho Oquendo | ECON | [address] | | | | | [place] | | | | | [address] | | + + + + + | Marta Upton | ECON | [place] | | | | | [address] | | + + + + + Care Team Providers + +------+ + | Care Undercover Cop Name | Role | Phone | + [...] | | Personal | Reinaldo, | [place] | | | | | 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, | [place], | | | | | 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 [address] | [place] [address] | | | | | neoplasm of | [address] | Phone: | | | | | other site | [place], | [phone] | | | | | in | [place] [address] | Fax: | | | | | gastrointest | Phone: | [phone] | | | | | inal tract | [phone] | | | | | | Procedures | Fax: | | | | | | CT Abdomen | [phone] | | | | | | Pelvis w | | | | | | | Contrast [...] | | Personal | Reinaldo, | [place] | | | | | 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, | [place], | | | | | 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 [address] | [place] [address] | | | | | neoplasm of | [address] | Phone: | | | | | other site | [place], | [phone] | | | | | in | [place] [address] | Fax: | | | | | gastrointest | Phone: | [phone] | | | | | inal tract | [phone] | | | | | | Procedures | Fax: | | | | | | CT Abdomen | [phone] | | | | | | Pelvis w | | | | | | | Contrast | | | +--------+--------+ + + + + Encounter Details +--------+ + + + + | Date | Type | Department | Care Team | Description | +--------+ + + + + | 03/18/ | Hospital | [facility] | Reinaldo, | Personal history of | | 2015 | Encounter | MED [facility] [address] | Epifanio Soler MD [address] | malignant neoplasm | | | | [place], | [address] [place] | of other site in | | | | [place] [address] | [place] [address] | gastrointestinal | | | | [phone] | [phone] | tract | | | | | | | [...] | | + + + +---------+--------+ + documented as of this encounter Plan of Treatment +--------+---------+ + + + | Date | Type | Specialty | Care Team | Description | +--------+---------+ + + + | 09/17/ | Office | Urology | Pedro Green, | | | 2019 | Visit | | DO [address] | | | | | | [place] [address] | | | | | | [phone] | | | | | | | | +--------+---------+ + + + documented as of this encounter Procedures + +--------+ + + + | Procedure Name | Priori | Date/Time | Associated Diagnosis | Comments | | | ty | | | | + +--------+ + + + | CT ABDOMEN PELVIS W | Routin | 03/18/2014 | Personal history | Results for this | | CONTRAST | e | 12:03 PM | of 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procedure are in the | | | | PST | neoplasm of other | results section. 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
--- OUTSIDE RECORDS SUMMARY | ~2019-07-09 | XMS | Encounter Summary ---
Demographics + + + | Address | [address] | | | [place] [address] | + + + | Home Phone | | + + + | Preferred Language | Unknown | + + + | Marital Status | | + + + | Lutheran Affiliation | Unknown | + + + | Race | Unknown | + + + | Ethnic Group | Unknown | + + + Author + + + | Author | [facility] | | | and Eduardoana | + + + | Organization | [facility] | | | and Eduardo[place] | + + + | Address | Unknown | + + + | Phone | Unavailable | + + + Support + + + + + | Name | Relationship | Address | Phone | + + + + + | Poncho Oquendo | ECON | [address] | | | | | [facility] [place] [place] | | | | | [address] | | + + + + + | Marta Upton | ECON | [place], [place] | | | | | [address] | | + + + + + Care Team Providers + +------+ + | Care Eligibility Examiner Name | Role | Phone | + +------+ + PCP | Unavailable | + +------+ + Encounter Details +--------+ + + + + | Date | Type | Department | Care Team | Description | +--------+ + + + + | 03/19/ | Hospital | [facility] | | | | 2013 | Encounter | [facility] | | | | | | CENTER [address] | | | | | | [place] | | | | | | [address] | | | | | | [phone] | | | +--------+ + + + [...] [address] | | | | | | [place] [address] | | | | | | [phone] | | | | | | | [...] +-------+ + + + | WBC | 4.9 | 4.0 - 11.0 K/uL | [facility] | | | | | [facility] | | | | | | MEDICAL | | | | | | CENTER - | | | | | | LABORATORY | | + +-------+ + + + | RBC | 4.77 | 3.70 - 5.20 | [...] + | [facility] | [address] | [place] | [phone] | | [facility] | | [address] | | | - LABORATORY | | | | + + + + + | [facility] | [address] | [place] | | | [facility] | | [address] | | | - LABORATORY | [...] performed on the Cielo | ng/mL | [facility] | | | | [facility] | | MEDICAL | | | [...] + | [facility] | [address] | [place] | [phone] | | [facility] | | [address] | | | - LABORATORY | | | | + + + + + | [facility] | [address] | [place] | | | [facility] | | [address], [facility] | | | - LABORATORY | | | | + + + + + CA 19-9, Quant (03/19/2013 12:12 PM PST) + + + + + + | Component | Value | Ref Range | Performed | Pathologist | | | | | At | Signature | + + + + + + | [place] 19 9 | 14Comment: The Siemens | 0 - 37 U/mL | [facility] | | | | (formerly [facility] | | [facility] | | | | Centaur immunoassay [...] | | | | [address], [place], [place] | | | | | | [address] CLIA: | | | | | | [id number] | | | | + + + + + + + + | Specimen | + + | | + + + + + + + | Performing | Address | City/State/Zipcode | Phone Number | | Organization | | | | + + + + + | [facility] | [address] | [place] | [phone] | | [facility] | | [address] | | | - LABORATORY | | | | + + + + + | [facility] | [address] | [place] | | | [facility] | | [address] | | | - LABORATORY | [...] 93 | 70 - 109 mg/dL | [facility] [...] 4.0 | 3.2 - 5.0 gm/dL | [facility] | | | | | | [facility] | | | | | | MEDICAL | | | | | | CENTER - | | | | | | LABORATORY | | + + + + + + | BUN | 11 | 7 - 18 mg/dL | [facility] | | | | | | [facility] | | | | | | MEDICAL | | | | | | CENTER - | | | | | | LABORATORY | | + + + + + + | Creatinine | 0.72 | 0.60 - 1.30 | [facility] | | | | | mg/dL | [facility] | | | | | | MEDICAL | | | | | | CENTER - | | | | | | LABORATORY | | + + + + + + | Estimated | >60Comment: For | >60 mL/min/A | [facility] | | | GFR | -Americans, | [...] + | [facility] | [address] | [place], [place] | [phone] | | [facility] | | [address] | | | - LABORATORY | | | | + + + + + | [facility] | [address] | [place], [place] | | | [facility] | | [address] | | | - LABORATORY | [...] + | [facility] | [address] | [place] | [phone] | | [facility] | | [address] | | | - LABORATORY | | | | + + + + + | [facility] | [address] | [place] | | | [facility] | | [address] | | | - LABORATORY | | | | + + + + + documented in this encounter Visit Diagnoses Not on filedocumented in this encounter"
--- OUTSIDE RECORDS SUMMARY | ~2019-07-09 | XMS | Encounter Summary ---
Demographics + + + | Address | [address] | | | [place] [address] | + + + | Home Phone | | + + + | Preferred Language | Unknown | + + + | Marital Status | | + + + | Denominational Affiliation | Unknown | + + + | Race | Unknown | + + + | Ethnic Group | Unknown | + + + Author + + + | Author | [facility] | | | and Eduardoana | + + + | Organization | [facility] | | | and Eduardoana | + + + | Address | Unknown | + + + | Phone | Unavailable | + + + Support + + + + + | Name | Relationship | Address | Phone | + + + + + | Poncho Oquendo | ECON | [address] | | | | | [place] | | | | | [address] | | + + + + + | Marta Upton | ECON | [place] | | | | | [address] | | + + + + + Care Team Providers + +------+ + | Care Adult Psychiatrist Name | Role | Phone | + [...] | | | [facility] CL[facility] [address] | [facility] | | | | | [address] [facility] | [place] [address] | | | | | [place] [address] | [phone] | | | | | [phone] | | | +--------+ + + + [...] [address] | | | | | | [facility] [place] [address] | | | | | | [phone] | | | | | | | | +--------+---------+ + + + documented as of this encounter Visit Diagnoses Not on filedocumented in this encounter"
--- OUTSIDE RECORDS SUMMARY | ~2019-07-09 | XMS | Encounter Summary ---
Demographics + + + | Address | [address] | | | [place] [address] | + + + | Home Phone | | + + + | Preferred Language | Unknown | + + + | Marital Status | | + + + | Cheondoism Affiliation | Unknown | + + + | Race | Unknown | + + + | Ethnic Group | Unknown | + + + Author + + + | Author | [facility] | | | and Eduardoana | + + + | Organization | [facility] | | | and Eduardoana | + + + | Address | Unknown | + + + | Phone | Unavailable | + + + Support + + + + + | Name | Relationship | Address | Phone | + + + + + | Poncho Oquendo | ECON | [address] | | | | | [place] | | | | | [address] | | + + + + + | Marta Upton | ECON | [place] | | | | | [address] | | + + + + + Care Team Providers + +------+ + | Care Manager Support Name | Role | Phone | + +------+ + | Valeriy Carmona DO | PCP | | + +------+ + Reason for Visit +--------+ + | Reason | Comments | +--------+ + | Other | | +--------+ + Encounter Details +--------+ + + + + | Date | Type | Department | Care Team | Description | +--------+ + + + + | 06/17/ | Telephone | [facility] | Reinaldo, | Other | | 2016 | | MED CTR MEDICAL | Epifanio Soler MD [address] | | | | | ON[facility]OGY CLINIC [address] | [facility] | | | | | [facility] | [place] [address] | | | | | [place] [address] | [phone] | | | | | [phone] | | | +--------+ + + + [...] | | | | | | [facility] [address] | | | | | | [phone] | | | | | | | | +--------+---------+ + + + documented as of this encounter Visit Diagnoses Not on filedocumented in this encounter"
--- OUTSIDE RECORDS SUMMARY | ~2019-07-09 | XMS | Encounter Summary ---
Demographics + + + | Address | [address] | | | [place] [address] | + + + | Home Phone | | + + + | Preferred Language | Unknown | + + + | Marital Status | | + + + | Faith Affiliation | Unknown | + + + | Race | Unknown | + + + | Ethnic Group | Unknown | + + + Author + + + | Author | [facility] | | | and Eduardo[place] | + + + | Organization | [facility] | | | and Eduardo[place] | + + + | Address | Unknown | + + + | Phone | Unavailable | + + + Support + + + + + | Name | Relationship | Address | Phone | + + + + + | Poncho Oquendo | ECON | [address] | | | | | [place] | | | | | [address] | | + + + + + | Marta Upton | ECON | [place] | | | | | [address] | | + + + + + Care Team Providers + +------+ + | Care Senior Qa Automation Engineer Name | Role | Phone | [...] [facility] [address] | | | | | AL OFFICE | [address] | [place] | | | | | OUTPATIENT | Phone: | [address] Phone: | | | | | VISIT 25 | [phone] | [phone] | | | | | MINUTES | Fax: | Fax: | | | | | | [phone] | [phone] | +--------+--------+ + + + + Encounter Details +--------+ + + + + | Date | Type | Department | Care Team | Description | +--------+ + + + + | 09/16/ | Hospital | [facility] | Reinaldo, | Gallbladder cancer, | | 2015 | Encounter | [facility] | Chad Soler MD [address] | carcinoma (HCC) | | | | ONCOLOGY CLINIC [address] | [address] | (Primary Dx) | | | | [address] | [place] [address] | | | | | [place] [address] | [phone] | | | | | [phone] | | | +--------+ + + + [...] nt from the original. Hematology/Oncology Progress Note [facility] Pt. Name/Age/: Aura Upton 53 y.o. 1960 Med. Record Number: [id number] Date of admission: 09/16/2014 Identifying Statement: Aura Upton is a 53 y.o. female from [address] [place] [id number] with Recurrent Cholangiocarcinoma. The patient chart and [...] Brandon Garcia March 29, 2012, pathological specimen [id number], analyzed by Dr. Bowers of [facility] and was notable for a poorly-differentiated adenoc arcinoma of the gallbladder. Liver biopsy demonstrated mild portal inflammation. 2. On April 28, 2012, she successfully underwent an R0 resection by Dr. Tai Stanton at [facility], pathological specimen [id number] was notable for the absence of any residual carcinoma within the gallbladder bed. However, 2/8 regional lym ph nodes contained regionally metastatic disease. 3. Consultation by Dr. Elva Grey of the [facility] on May returned the recommendation for adjuvant chemoradiation therapy following [id number] as follows: Capecitabine at 750 mg/m sq [...] staging by Dr. Oziel [facility]. Pathological analysis was notable for [...] 7. Consultation with Dr. Elva Grey the [facility] in June 26, 2014 who recommended additional chemotherapy was cisplatin at 75 mg meter squared on day 1 a nd gemcitabine 1250 mg per meter squared on day one and day 8 of acute 21 day cycle for 6-8 cycles. A second opinion was obtained by Dr. Richie Thayer of the [facility] iance who returned the recommendation for [...] the recommendations of Dr. Richie Thayerof the [facility] with gemcitabine at 1000 mg per meter squared on day one and day 8 wi th cisplatin 25 mg meter squared on day one and day 8 of a Q 21 day cycle beginning on July 26, 2014 complicated by grade 3 neutropenia and grade [address]ocyt[address]. [address] scan of the chest, abdomen and pelvis that [facility] on September 16, 2014 demonstrated no [...] will return to see me at the [facility] in [place], [place] on September 20, 2014 for clinical [...] has been changed since signin Order Audit Aldrich dexamethasone (DECADRON) 4 mg tablet (Taking) Take one tablet PO as directed. Number of times this order has been changed since signin Order Audit Aldrich docusate calcium (SURFAK) 240 mg capsule (Taking) Take 240 mg by mouth as needed. Number of times this order has been changed since signin Order Audit Aldrich fish oil 1,000 mg capsule (Taking) Take 1,000 mg by mouth Daily. Number of times this order has been changed since signin Order Audit Aldrich HYDROcodone-acetaminophen (VICODIN) 5-500 mg per tablet (Taking) Take 1 tablet by mouth e very 4 hours as needed. Number of times this order has been changed since signin Order Audit Aldrich MULTIPLE VITAMIN PO (Taking) Take by mouth Daily. Number of times this order has been changed since signin Order Audit Aldrich Probiotic Product (PROBIOTIC DAILY PO) (Taking) Take by mouth Daily. Number of times this order has been changed since signin Order Audit Aldrich Allergy: Allergies Allergen Reactions Sulfa Antibiotics Objectives: [...] this chart may have been created with Ghost voice recognition software. Occasi onal wrong-word or [...] | Visit | | DO [address] | | | | | | [place] [address] | | | | | | [phone] | | | | | | | | +--------+---------+ + + + documented as of this encounter Visit Diagnoses + + | Diagnosis | + + | Gallbladder cancer, 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
--- OUTSIDE RECORDS SUMMARY | ~2019-07-09 | XMS | Encounter Summary ---
Demographics + + + | Address | [address] | | | [place] [address] | + + + | Home Phone [...] Author + + + | Author | [facility] | + + + | Organization | [facility] | + + + | Address [...] Team Providers + +------+ + | Care Shot Fireman Name | Role | Phone | + +------+ + | Tomasa Wagner | PCP | | + +------+ + Reason for Visit + + + | Reason | Comments | + + + | Medical Records | [facility] - OUTSIDE RECORDS 03/18/14 OV Summary | | Review | | + + + Encounter Details +--------+ + + + + | Date | Type | Department | Care Team | Description | +--------+ + + + + | 03/22/ | Abstract | [facility] | Tai Stanton, | Medical Records | | 2015 | | [place] [facility] [address] | [address] [facility] | Review ([facility] - | | | | [address] | OUTSIDE RECORDS | | | | Mailcode: [place] | [place], [place] | 03/18/14 OV Summary) | | | | for Health and | [address] | | | | | [facility] | [phone] | | | | | [place], [place] | | | | | | [address] | | | | | | [phone] | | | +--------+ + + + [...]
--- OUTSIDE RECORDS SUMMARY | ~2019-07-09 | XMS | Encounter Summary ---
Demographics + + + | Address | [address] | | | [place] [address] | + + + | Home Phone | | + + + | Preferred Language | Unknown | + + + | Marital Status | | + + + | Muslim Affiliation | Unknown | + + + | Race | Unknown | + + + | Ethnic Group | Unknown | + + + Author + + + | Author | [facility] | | | and Eduardo[place] | + + + | Organization | [facility] | | | and Eduardoana | + + + | Address | Unknown | + + + | Phone | Unavailable | + + + Support + + + + + | Name | Relationship | Address | Phone | + + + + + | Poncho Oquendo | ECON | [address] | | | | | [facility], [place] | | | | | [address] | | + + + + + | Marta Upton | ECON | [place] | | | | | [address] | | + + + + + Care Team Providers + +------+ + | Care Vehicle Modification Technician Name | Role | Phone | + +------+ + | No, Physician | PCP | Unavailable | + +------+ + Reason for Visit + + + | Reason | Comments | + + + | Coordination Of Care | | + + + Encounter Details +--------+ + + + + | Date | Type | Department | Care Team | Description | +--------+ + + + + | 07/03/ | Telephone | [facility] | Reinaldo | Coordination Of Care | | 2020 | | MED [facility] | Epifanio Soler MD [address] | | | | | ONCOLOGY CLINIC [address] | [facility] | | | | | [facility] | [place] [address] | | | | | [place] [address] | [phone] | | | | | [phone] | | | +--------+ + + + [...] | | | | | [place] [address] | | | | | | [phone] | | | | | | | | +--------+---------+ + + + documented as of this encounter Visit Diagnoses Not on filedocumented in this encounter"
--- OUTSIDE RECORDS SUMMARY | ~2019-07-09 | XMS | Encounter Summary ---
Demographics + + + | Address | [address] | | | [place] [address] | + + + | Home Phone [...] | Author | [facility] | | | and Eduardoana | + + + | Organization | [facility] | | | and Eduardo[place] | + + + | Address | Unknown | + + + | Phone | Unavailable | + + + Support + + + + + | Name | Relationship | Address | Phone | + + + + + | Poncho Oquendo | ECON | [address] | | | | | [place] | | | | | [address] | | + + + + + | Marta Upton | ECON | [place] | | | | | [address] | | + + + + + Care Team Providers + +------+ + | Care Card Cleaner Name | Role | Phone | + +------+ + | Valeriy Carmona DO | PCP | | + +------+ + Encounter Details +--------+ + + + + | Date | Type | Department | Care Team | Description | +--------+ + + + + | 07/03/ | Orders Only | [facility] | Reinaldo, | Cholangiocarcinoma | | 2015 | | [facility] | Epifanio Soler MD [address] | (HCC) (Primary Dx) | | | | ONCOLOGY CLINIC [address] | | | | | [address] | [place] [address] | | | | | [place] [address] | [phone] | | | | | [phone] | | | +--------+ + + + [...] 2019 | Visit | | DO [address] | | | | | | [place] [address] | | | | | | [phone] | | | | | | | | +--------+---------+ + + + documented as of this encounter Visit Diagnoses + + | Diagnosis | + + | 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
--- OUTSIDE RECORDS SUMMARY | ~2019-07-09 | XMS | Encounter Summary ---
Demographics + + + | Address | [address] | | | [place] [address] | + + + | Home Phone | | + + + | Preferred Language | Unknown | + + + | Marital Status | | + + + | Voodoo Affiliation | Unknown | + + + | Race | Unknown | + + + | Ethnic Group | Unknown | + + + Author + + + | Author | [facility] | | | and Eduardoana | + + + | Organization | [facility] | | | and Eduardoana | + + + | Address | Unknown | + + + | Phone | Unavailable | + + + Support + + + + + | Name | Relationship | Address | Phone | + + + + + | Poncho Oquendo | ECON | [address] | | | | | [place] [facility], [place] | | | | | [address] | | + + + + + | Marta Upton | ECON | [place], [place] | | | | | [address] | | + + + + + Care Team Providers + +------+ + | Care Primer Press Operator Name | Role | Phone | [...] + + | 05/01/ | Telephone | [facility] | Reinaldo, | Other | | 2013 | | [facility] | Epifanio Soler MD [address] | | | | | ONCOLOGY CLINIC [address] | [address] | | | | | [address] | [place] [address] | | | | | [place] [address] | [phone] | | | | | [phone] | | | +--------+ + + + [...] | | | | | [place] [address] | | | | | | [phone] | | | | | | | | +--------+---------+ + + + documented as of this encounter Visit Diagnoses Not on filedocumented in this encounter"
--- OUTSIDE RECORDS SUMMARY | ~2019-07-09 | XMS | Encounter Summary ---
Demographics + + + | Address | [address] | | | [place] [address] | + + + | Home Phone [...] | [facility] | | | and Eduardoana | + + + | Organization | [facility] | | | and Eduardo[place] | + + + | Address | Unknown | + + + | Phone | Unavailable | + + + Support + + + + + | Name | Relationship | Address | Phone | + + + + + | Poncho Oquendo | ECON | [address] | | | | | [facility] [place] | | | | | [address] | | + + + + + | Marta Upton | ECON | [place] | | | | | [address] | | + + + + + Care Team Providers + +------+ + | Care Taxation Inspector Name | Role | Phone | [...] + + | 11/29/ | Surgery | [facility] | Pedro Green, | CYSTOSCOPY URETERAL | | 2018 | | [facility] | DO [address] [facility] | STENT stent removal | | | | OPERATING ROOM [address] | [place] [address] | and replacement | | | | [address] | [phone] | | | | | [facility] [place] | | | | | | [address] | | | | | | [phone] | | | +--------+---------+ + + + [...] out of the urethra Date Last Reviewed: 02/15/201619996225-9779 [employer]. [address] [place] [address]. All righ ts reserved. This information is [...] on your doctor's advice. Talk to your sheriffs detective regarding the use of this medicine in children. Special care may be needed. What side effects may I notice from receiving this medicine? Side effects that you should report to your doctor or health care consultant as soon as p ossible: allergic reactions like skin rash, itching or hives, swelling of the face, lips, or tongue blue or purple color of the skin difficulty breathing fever less urine unusual bleeding, bruising unusual tired, weak vomiting yellowing of the eyes or skin Side effects that usually do not require medical attention (report to your doctor or health care consultant if they continue or are bothersome): dark [...] if you have any of these conditions: iirmmmn-6-gbvarejys dehydrogenase (G6PD) deficiency kidney disease an unusual or allergic reaction to phenazopyridine, other medicines, foods, dyes, or preser vatives or trying to get breast-feeding What should I watch for while using this medicine? Tell your doctor or health care consultant if your symptoms do not improve or [...] for sugar in your urine. Talk to [facility] health care provider. NOTE:This sheet is a summary. It may not cover all possible information. If you have questi ons about this medicine, talk to your doctor, pharmacist, or health care provider. Copyright 2019 [employer] Ciprofloxacin tablets Brand Name: Cipro What is [...] information carefully each time. Talk to your sheriffs detective regarding the use of this medicine in children. Special care may be needed. What side effects may I notice from receiving this medicine? Side effects that you should report to your doctor or health care consultant as soon as p ossible: allergic reactions [...] attention (report to your doctor or health care consultant if they continue or are bothersome): dry [...] watery. Check with your doctor or health care consultant if you get an attack of severe diarrhea, nausea and vomiting, or if you sweat a lot. The loss of too much body fluid can make it haile gerous for you to take this medicine. This medicine may affect blood sugar levels. If you have diabetes, check with your doctor o r health care consultant before you change your diet or the [...] [address] | | | | | | [place] [address] | | | | | | [phone] | | | | | | | [...] Cholangiocarcinoma | | | | | | ([facility]) | | + +--------+ + + + [...] | | | | | | longer, axmsdx-fpa-vtgvt use of | | | | | [...]
--- OUTSIDE RECORDS SUMMARY | ~2019-07-09 | XMS | Encounter Summary ---
Demographics + + + | Address | [address] | | | [place] [address] | + + + | Home Phone [...] Author + + + | Author | [facility] | + + + | Organization | [facility] | + + + | [...] Team Providers + +------+ + | Care Airport Operations Specialist Name | Role | Phone | + +------+ + | Prudencio Isaac MD | PCP | | + +------+ + Reason for Referral Diagnostic Testing (Urgent) +--------+--------+ + + + + | Status | Reason | Specialty | Diagnoses / | Referred By | Referred To | | | | | Procedures | Contact | Contact | +--------+--------+ + + + + | Closed | | Radiology | Diagnoses | Chika, | Rad Ct Scan | | | | | Gallbladder | MD Mackenzie | [facility] [address] | | | | | cancer | [address] | | | | | (HCC) | [address] | [place] [facility] | | | | | Procedures | Rd | Hospital, | | | | | CT CHEST, | [place], [place] | 10th Floor | | | | | ABDOMEN & | [address] | [place], [place] | | | | | [address] | Phone: | [phone] | | | | | CONTRAST | [phone] | Phone: | | | | | [address], [address] | Fax: | [phone] | | | | | | [phone] | Fax: | | | | | | | [phone] | +--------+--------+ + + + + Reason for Visit Diagnostic Testing (Urgent) +--------+--------+ + + + + | Status | Reason | Specialty | Diagnoses / | Referred By | Referred To | | | | | Procedures | Contact | Contact | +--------+--------+ + + + + | Closed | | Radiology | Diagnoses | Danczyk, | Rad Ct Scan | | | | | Gallbladder | MD Mackenzie | [facility] [address] | | | | | cancer | [address] | [address] | | | | | (HCC) | [address] | [place] | | | | | Procedures | Rd | Hospital, | | | | | CT CHEST, | [place], [place] | 10th Floor | | | | | ABDOMEN & | | [place], [place] | | | | | [address]VIS [address] | Phone: | [phone] | | | | | CONTRAST | [phone] | Phone: | | | | | [address], [address] | Fax: | [phone] | | | | | | [phone] | Fax: | | | | | | | [phone] | +--------+--------+ + + + + Encounter Details +--------+ + + + + | Date | Type | Department | Care Team | Description | +--------+ + + + + | 04/12/ | Hospital | Radiology/Imaging | | | | 2012 | Encounter | Lab at [facility] [address] | | | | | | Faria Katerina Mailcode: | | | | | | [facility] | | | | | | [facility], | | | | | | [place] [address], [facility] | | | | | | Floor [place], [place] | | | | | | [address] | | | | | | [phone] | | | +--------+ + + + [...] for this | | | e | 11:17 PM | | procedure are in the | | | | PST | | results section. | + +--------+ + + + | CT CHEST, ABDOMEN | Routin | 04/12/2012 | Gallbladder cancer | Results for this | | AND PELVIS W IV | e | 2:34 PM | (HCC) | procedure are in the | | CONTRAST | | PST | | results section. | + +--------+ + + + documented in this encounter Results PROCEDURE NOTE (03/20/2015 11:17 PM PST) + + | Transcriptions | + + | Other, Faculty - 04/28/2012 2:26 PM PDT | + + CT CHEST, ABDOMEN & [...] | | | | signed / Kelsey Morejon | | | | | | 04/12/2012 15:58 PM | | | | | | Pending final approval | | | | | | / Michael Blas | | | | | Cleo 04/12/2012 [...] | | + +---------+ + + | [facility] DEPARTMENT OF | | | | | RADIOLOGY | | | | + +---------+ + + documented in this encounter Visit Diagnoses + + | Diagnosis | + + | Gallbladder cancer (HCC) Malignant neoplasm of gallbladder | + + documented in this encounter"
--- OUTSIDE RECORDS SUMMARY | ~2019-07-09 | XMS | Encounter Summary ---
Demographics + + + | Address | [address] | | | [place] [address] | + + + | Home Phone [...] + + | Author | [facility] | + + + | Organization | [facility] | + + + | Address | [...] Team Providers + +------+ + | Care Political Analyst Name | Role | Phone | [...] | | [address] | [facility], | | | | | [address] | [place] [address] | | | | | Pavilion, [facility] floor | [phone] | | | | | [place], [place] | | | | | | [address] | | | | | | [phone] | | | +--------+ + + + [...]
--- OUTSIDE RECORDS SUMMARY | ~2019-07-09 | XMS | Encounter Summary ---
Demographics + + + | Address | [address] | | | [place] [address] | + + + | Home Phone | | + + + | Preferred Language | Unknown | + + + | Marital Status | | + + + | Moravian Affiliation | Unknown | + + + | Race | Unknown | + + + | Ethnic Group | Unknown | + + + Author + + + | Author | [facility] | | | and Eduardoana | + + + | Organization | [facility] | | | and Eduardoana | + + + | Address | Unknown | + + + | Phone | Unavailable | + + + Support + + + + + | Name | Relationship | Address | Phone | + + + + + | Poncho Oquendo | ECON | [address] | | | | | [place] | | | | | [address] | | + + + + + | Marta Upton | ECON | [place] | | | | | [address] | | + + + + + Care Team Providers + +------+ + | Care Lead Military Analyst Name | Role | Phone | + +------+ + | Valeriy Carmona DO | PCP | | + +------+ + Reason for Visit +---------+ + | Reason | Comments | +---------+ + | Results | | +---------+ + Encounter Details +--------+ + + + + | Date | Type | Department | Care Team | Description | +--------+ + + + + | 04/22/ | Telephone | [facility] | Reinaldo | Results | | 2016 | | [facility] | Epifanio Soler MD [address] | | | | | ONCOLOGY CLINIC [address] | [facility] | | | | | [facility] | [place] [address] | | | | | [place] [address] | [phone] | | | | | [phone] | | | +--------+ + + + [...] [address] | | | | | | [facility] [address] | | | | | | [phone] | | | | | | | | +--------+---------+ + + + documented as of this encounter Visit Diagnoses Not on filedocumented in this encounter"
--- OUTSIDE RECORDS SUMMARY | ~2019-07-09 | XMS | Encounter Summary ---
Demographics + + + | Address | [address] | | | [place] [address] | + + + | Home Phone | | + + + | Preferred Language | Unknown | + + + | Marital Status | Single | + + + | Mu-Ism Affiliation | NON | + + + [...] Team Providers + +------+ + | Care 3D Artist Name | Role | Phone | + [...] | | 2012 | | Oncology at [facility] | [address] | Question | | | | [address] [facility] | [facility] [address] | | | | | Mailcode: CH7M | [place] [address] | | | | | [facility] | [phone] | | | | | and [place], | | | | | | [place] [address] | | | | | | [place], [place] | | | | | | [address] | | | | | | [phone] | | | +--------+ + + + [...]
--- OUTSIDE RECORDS SUMMARY | ~2019-07-09 | XMS | Encounter Summary ---
Demographics + + + | Address | [address] | | | [place] [address] | + + + | Home Phone | | + + + | Preferred Language | Unknown | + + + | Marital Status | | + + + | Denominational Affiliation | Unknown | + + + | Race | Unknown | + + + | Ethnic Group | Unknown | + + + Author + + + | Author | [facility] | | | and [place] | + + + | Organization | [facility] | | | and [place] | + + + | Address | Unknown | + + + | Phone | Unavailable | + + + Support + + + + + | Name | Relationship | Address | Phone | + + + + + | Poncho Oquendo | ECON | [address] | | | | | [place] | | | | | [address] | | + + + + + | Marta Upton | ECON | [place] | | | | | [address] | | + + + + + Care Team Providers + +------+ + | Care Builder'S Labourer Name | Role | Phone | + [...] | | Carcinoma | Reinaldo, | [address] | | | | | of gall | Epifanio C, | [place], | | | | | bladder | MD [address] | [place] [address] | | | | | (HCC) | [address] | Phone: | | | | | Procedures | [place], | [phone] | | | | | [place] Abdomen | [place] [address] | Fax: | | | | | Pelvis w | Phone: | [phone] | | | | | Contrast | [phone] | | | | | | | Fax: | | | | | | | [phone] | | +--------+--------+ + + + + [...] | (Primary Dx) | | | | [address], | [place] [address] | | | | | [place] [address] | [phone] | | | | | [phone] | | | +--------+ + + + [...] [address] | | | | | | [place] [address] | | | | | | [phone] | | | | | | | [...] [address] | [place] | [phone] | | [facility] | | [address] | | | - LABORATORY | | [...] | | | | | | [place] [address] | | | | + + + [...] [address] | [place] [address] | [phone] | + + + + + Lactate [...] + | [facility] | [address] | [place] | [phone] | | [facility] | | [address] | | | - LABORATORY | | [...] mL/min/1.73m2 | [facility] | | | [place] | RATE,ESTIMATED | | MEDICAL | | | | mL/min/1.86x8Scaj than | | CENTER - | | [...] | 8.6 | 8.3 - 10.5 | [facility] | | | | | mg/dL [...] [address] | [place] | [phone] | | [facility] | | [address] | | | - LABORATORY | | [...] [facility] | | | | | | [facility] | | | | | | MEDICAL | | | | | | CENTER - | | | | | | LABORATORY | | + + + + + + | RBC | 3.19 (L) | 3.70 - 5.20 | [facility] | | | | | M/uL | [facility] | | | | | | [...] [address] | [place] | [phone] | | [facility] | | [address] | | | - LABORATORY | | | | + + + + + documented in this encounter Visit Diagnoses + + | Diagnosis | + + | 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
--- OUTSIDE RECORDS SUMMARY | ~2019-07-09 | XMS | Encounter Summary ---
Demographics + + + | Address | [address] | | | [place] [address] | + + + | Home Phone | | + + + | Preferred Language | Unknown | + + + | Marital Status | Single | + + + | Hoahaoism Affiliation | NON | + + + [...] Team Providers + +------+ + | Care Orthodontic Laboratory Technician Name | Role | Phone | [...] | | 2015 | | [facility] | MD [address] | Review ([facility] - | | | | [address] | [address] | OUTSIDE RECORDS | | | | Mailcode: [place] | [place], [place] | 06/24/14 Bookmarked | | | | for Health and | [address] | Document (notes, | | | | Healing, [address] | [phone] | labs, imaging)) | | | | [place], [place] | | | | | | [address] | | | | | | [phone] | | | +--------+ + + + [...]
--- OUTSIDE RECORDS SUMMARY | ~2019-07-09 | XMS | Encounter Summary ---
Demographics + + + | Address | [address] | | | [place] [address] | + + + | Home Phone | | + + + | Preferred Language | Unknown | + + + | Marital Status | Single | + + + | Episcopalian Affiliation | NON | + + + | Race | White | + + + | Ethnic Group | Not or | + + + Author + + + | Author | [facility] | + + + | Organization | [facility] | + + + | Address [...] Team Providers + +------+ + | Care Chef Instructor Name | Role | Phone | + +------+ + | Tomasa Wagner | PCP | | + +------+ + Encounter Details +--------+ + + + + | Date | Type | Department | Care Team | Description | +--------+ + + + + | 06/01/ | Abstract | [facility] | Tai Stanton, | | | 2012 | | [facility] | [address] | | | | | [address] | [address] | | | | | Mailcode: Center | [place], [place] | | | | | [facility] and | [address] | | | | | Healing, Building [address] | [phone] | | | | | [place], [place] | | | | | | [address] | | | | | | [phone] | | | +--------+ + + + [...]
--- OUTSIDE RECORDS SUMMARY | ~2019-07-09 | XMS | Encounter Summary ---
Demographics + + + | Address | [address] | | | [place] [address] | + + + | Home Phone [...] | [facility] | | | and [place] | + + + | Organization | [facility] | | | and [place] | + + + | Address | Unknown | + + + | Phone | Unavailable | + + + Support + + + + + | Name | Relationship | Address | Phone | + + + + + | Poncho Oquendo | ECON | [address] | | | | | [place] | | | | | [address] | | + + + + + | Marta Upton | ECON | [place] | | | | | [address] | | + + + + + Care Team Providers + +------+ + | Care Tax Technician Name | Role | Phone | [...] | | | [facility] | [facility] | | | | | [facility] | [place] [address] | | | | | [place] [address] | [phone] | | | | | [phone] | | | +--------+ + + + [...] | | | | | [place] [address] | | | | | | [phone] | | | | | | | | +--------+---------+ + + + documented as of this encounter Visit Diagnoses Not on filedocumented in this encounter"
--- OUTSIDE RECORDS SUMMARY | ~2019-07-09 | XMS | Encounter Summary ---
Demographics + + + | Address | [address] | | | [place] [address] | + + + | Home Phone [...] Author + + + | Author | [facility] | + + + | Organization | [facility] | + + + | Address [...] Providers + +------+ + | Care Automatic Steel Tie Adjuster Name | Role | Phone | + +------+ + | Tomasa Wagner | PCP | | + +------+ + Encounter Details +--------+ + + + + | Date | Type | Department | Care Team | Description | +--------+ + + + + | 06/21/ | MyChart | [facility] | Elva Grey, | next step for | | 2014 | Encounter | Clinics at S | [address] | treatment | | | | [facility] | [address] | | | | | for Health and | [place] [address] | | | | | Healing [facility] | [phone] | | | | | [place], [place] | | | | | | [address] | | | | | | [phone] | | | +--------+ + + + [...]
--- OUTSIDE RECORDS SUMMARY | ~2019-07-09 | XMS | Encounter Summary ---
Demographics + + + | Address | [address] | | | [place] [address] | + + + | Home Phone [...] | [facility] | | | and [place] | + + + | Organization | [facility] | | | and [place] | + + + | Address | Unknown | + + + | Phone | Unavailable | + + + Support + + + + + | Name | Relationship | Address | Phone | + + + + + | Poncho Oquendo | ECON | [address] | | | | | [place] | | | | | [address] | | + + + + + | Marta Upton | ECON | [place] | | | | | [address] | | + + + + + Care Team Providers + +------+ + | Care Ripsawyer Name | Role | Phone | + [...] Closed | | Radiology | Diagnoses | [place], | [facility] | | | | | Unspecified | Vladimir Nelson MD | Mammography | | | | | lump in | [address] | [address] | | | | | breast | [place] | [place], | | | | | Procedures | STREET | [place] | | | | | LUPE BREAST | [place], | [address] | | | | | BIOPSY RIGHT | [place] | Phone: | | | | | | [address] | [phone] | | | | | | Phone: | Fax: | | | | | | [phone] | [phone] | | | | | | Fax: | | | | | | | [phone] | | +--------+--------+ + + + + Encounter Details +--------+ + + + + | Date | Type | Department | Care Team | Description | +--------+ + + + + | 03/05/ | Hospital | [facility] | Reinaldo, | Mass of breast, | | 2017 | Encounter | MED CTR MAM[facility]GRAPHY | Epifanio Soler MD [address] | right | | | | [address] | [address] [place] | | | | | [place], [place] | [place] [address] | | | | | [address] | [phone] | | | | | [phone] | | | | | | | [address] | | +--------+ [...] [address] | | | | | | [place] [address] | | | | | | [phone] | | | | | | | | +--------+---------+ + + + documented as of this encounter Procedures + +--------+ + + + | Procedure Name | Priori | Date/Time | Associated Diagnosis | Comments | | | ty | | | | + +--------+ + + + | LUPE TOMOSYN | STAT | 03/05/2016 | Mass of breast, | Results for this | | DIAGNOSTIC RIGHT | | 1:08 PM | right | procedure are in the | | | | PST | | results section. | + +--------+ + + + documented in this encounter Results LUPE Tomosynthesis Diagnostic Right (03/05/2016 1:08 PM PST) + + | Specimen | + + | | + + + + + | Narrative | Performed At | + + + | EXAM: [facility] DI[facility]IC RIGHT dated 03/05/2016 12:50 PM [...] In - 03/05/2016 2:52 PM PST EXAM: [facility] RIGHT | | dated 03/05/2016 12:50 PMHISTORY:EVALUATE THE STABILITY OF MAMMOGRAPHIC ASYMMETRIES AND A | | SMALL,. TECHNIQUE: Unilateral digital CC and MLO. Shree synthesis is performed. | | CADutilized.COMPARISON: Mammograms dating back to 2012 and 2016FINDINGS: Scattered | | areas of [...]
--- OUTSIDE RECORDS SUMMARY | ~2019-07-09 | XMS | Encounter Summary ---
Demographics + + + | Address | [address] | | | [place] [address] | + + + | Home Phone [...] + | Poncho Oquendo | ECON | [address] | | | | | [facility] [place] [place] | | | | | [address] | | + + + + + | Marta Upton | ECON | [place], [place] | | | | | [address] | | + + + + + Care Team Providers + +------+ + | Care Cycle Counter Name | Role | Phone | + +------+ + PCP | Unavailable | + +------+ + Encounter Details +--------+ + + + + | Date | Type | Department | Care Team | Description | +--------+ + + + + | 01/15/ | Hospital | [facility] | | | | 2012 - | Encounter | [facility] | | | | | | CENTER [place] | | | | 02/13/ | | [place] | | | | 2012 | | [address] | | | | | | [phone] | | | +--------+ + + + [...] [address] | | | | | | [place] [address] | | | | | | [phone] | | | | | | | [...] + | [facility] | [address] | [place] | [phone] | | [facility] | | [address] | | | - LABORATORY | | | | + + + + + | [facility] | [address] | [place] | | | [facility] | | [id number] | | | - LABORATORY [...] [place] | | | | | | [address] CLIA: | | | | | | [id number] | | | | + + + + + + + + | Specimen | + + | | + + + + + + + | Performing | Address | City/State/Zipcode | Phone Number | | Organization | | | | + + + + + | [facility] | [address] | [place] | [phone] | | [facility] | | [address] | | | - LABORATORY | | | | + + + + + | [facility] | [address] | [place] | | | [facility] | | [address] | | | - LABORATORY [...] | 7 - 18 mg/dL | [facility] | | | | | | [facility] | | | | | | MEDICAL | | | | | | CENTER - | | | | | | LABORATORY | | + + + + + + | Creatinine | 0.77 | 0.60 - 1.30 | [facility] | | | | | mg/dL | [...] + | [facility] | [address] | [place], [place] | [phone] | | [facility] | | [address] | | | - LABORATORY | | | | + + + + + | [facility] | [address] | [place], [place] | | | [facility] | | [address], [facility] | | | - [...] [address] | [place] | [phone] | | [facility] | | [address] | | | - LABORATORY | | | | + + + + + | [facility] | [address] | [place] | | | [facility] | | [address] | | | - LABORATORY | | | | + + + + + documented in this encounter Visit Diagnoses Not on filedocumented in this encounter"
--- OUTSIDE RECORDS SUMMARY | ~2019-07-09 | XMS | Encounter Summary ---
Demographics + + + | Address | [address] | | | [place] [address] | + + + | Home Phone [...] Author | [facility] | | | and Eduardo[place] | + + + | Organization | [facility] | | | and Eduardoana | + + + | Address | Unknown | + + + | Phone | Unavailable | + + + Support + + + + + | Name | Relationship | Address | Phone | + + + + + | Poncho Oquendo | ECON | [address] | | | | | [place] | | | | | [address] | | + + + + + | Marta Upton | ECON | [place] [place] | | | | | [address] | | + + + + + Care Team Providers + +------+ + | Care Manager Floral Name | Role | Phone | + [...] 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, | [address]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 | MD [address] | [place], | | | | | (HCC) | [address] | [place] [address] | | | | | Procedures | [place], | Phone: | | | | | [place] | [place] [address] | [phone] | | | | | ONDANSETRON | Phone: | Fax: | | | | | HCL | [phone] | [phone] | | | | | INJECTION, 1 | Fax: | | | | | | MG [place] | [phone] | | | | | | DEXAMETHASON | | | | | | | E SODIUM | | | | | | | PHOS, 1 MG | | | | | | | [place] | | | | | | | DIPHENHYDRAM | | | | | | | INE HCL | | | | | | | INJECTIO, 50 | | | | | | | MG [place] | | | | | | | FOSAPREPITAN | | | | | | | T INJECTION, | | | | | | | 1 MG [place] | | | | | | | EPOETIN | | | | | | | JJ, | | | | | | | NON-ESRD, | | | | | | | 1000 UNITS | | | | | | | [place] CISPLATIN | | | | | | | 10 MG | | | | | | | INJECTION | | | | | | | [place] | | | | | | | GEMCITABINE | | | | | | | HCL | | | | | | | INJECTION, | | | | | | | 200 MG [place] | | | | | | | LORAZEPAM | | | | | | | INJECTION, 2 | | | | | | | MG [place] | | | | | | | METHYLPREDNI | | | | | | | SOLONE | | | | | | | INJECTION, | | | | | | | 125 MG [place] | | | | | | | NORMAL | | | | | | | SALINE | | | | | | | SOLUTION | | | | | | | INFUS, 500 | | | | | | | ML [place] | | | | | | | NORMAL | | | | | | | SALINE | | | | | | | SOLUTION | | | | | | | INFUS, 250 | | | | | | | ML [place] | | | | | | | STERILE | | | | | | | WATER/SALINE | | | | | | | , 10 ML [place] | | | | | | | CHEMOTHER, | | | | | | | IV PUSH,EA | | | | | | | ADD DRUG OH | | | | | | | CHEMOTHER, | | | | | | | IV INFUSION, | | | | | | | 1 HR [place] | | | | | | | CHEMOTHER, | | | | | | | IV INFUSION, | | | | | | | EA HR [place] | | | | | | | CHEMOTHER,NO | | | | | | | N-HORMONE | | | | | | | ANTI-NEOPL, | | | | | | | SUB-Q/IM [place] | | | | | | | [...] + + | 11/22/ | Hospital | [facility] | Vladimir Robles, | Gallbladder cancer, | | 2015 | Encounter | MED CTR CHEMO | MD [address] | carcinoma (HCC) | | | | INFUSION [address] [place], | (Primary Dx) | | | | [place], | [place] [address] | | | | | [place] [address] | [phone] | | | | | [phone] | | | +--------+ + + + [...] [address] | | | | | | [place] [address] | | | | | | [phone] | | | | | | | | +--------+---------+ + + + documented as of this encounter Procedures + +--------+ + + + | Procedure Name | Priori | Date/Time | Associated Diagnosis | Comments | | | ty | | | | + +--------+ + + + | CA 19-9, QUANT | STAT | 11/22/2014 | Gallbladder | Results for this | | | | 7:59 AM | cancer, carcinoma | procedure are in the | | | | PDT | (HCC) | results section. | + +--------+ + + + | CBC WITH | STAT | 11/22/2014 | Gallbladder | Results for this | | DIFFERENTIAL | | 7:59 AM | cancer, carcinoma | procedure are in the | | | | PDT | (HCC) | results section. | + +--------+ + + + | CA 125, QUANT | STAT | 11/22/2014 | Gallbladder | Results for this | | | | 7:59 AM | cancer, carcinoma | procedure are in the | | | | PDT | (HCC) | results section. | + +--------+ + + + | LACTATE | STAT | 11/22/2014 | Gallbladder | Results for this | | DEHYDROGENASE | | 7:59 AM | cancer, carcinoma | procedure are in the | | | | PDT | (HCC) | results section. | + +--------+ + + + | COMPREHENSIVE | STAT | 11/22/2014 | Gallbladder | Results for this | | METABOLIC PANEL | | 7:59 AM | cancer, carcinoma | procedure are in the | | | | PDT | (HCC) | results section. | + +--------+ + + + documented in this encounter Results CA 19-9, Quant (11/22/2014 7:59 AM PDT) + + + + + + | Component | Value | Ref Range | Performed | Pathologist | | | | | At | Signature | + + + + + + | CA 19-9 | 14Comment: [employer] | 0 - [...] | | | | | | [place] [address] | | | | + + + + + + + + | Specimen | + + | Blood specimen | | (specimen) | + + + + + + + | Performing | Address | City/State/Zipcode | Phone Number | | Organization | | | | + + + + + | [facility] | [address] | [place] [address] | [phone] | + + + + + CA 125, Quant (11/22/2014 7:59 AM PDT) + +-------+ + + + | Component | Value | Ref Range | Performed | Pathologist | | | | | At | Signature | + +-------+ + + + | Cancer | 19 | 0 - 35 U/mL | [facility] [...] + | [facility] | [address] | [place] | [phone] | | [facility] | | [address] | | | - LABORATORY | | | | + + + + + Lactate Dehydrogenase (11/22/2014 7:59 AM PDT) + +---------+ + + + | Component | Value | Ref Range | Performed | Pathologist | | | | | At | Signature | + +---------+ + + + | LDH TOTAL | 220 (H) | 91 - 180 U/L | [facility] [...] [address] | [place] | [phone] | | [facility] | | [address] | | | - LABORATORY | | | | + + + + + Comprehensive Metabolic Panel (11/22/2014 7:59 AM PDT) + + + + + + | Component | Value | Ref Range | Performed | Pathologist | | | | | At | Signature | + + + + + + | Na | 135 (L) | 136 - 149 | [facility] [...] Cl | 101 | 98 - 109 mmol/L | [facility] [...] + + + + | Glucose | 114 (H) | 70 - 109 mg/dL | [facility] | | | | | | [facility] | | | | | | MEDICAL | | | | | | CENTER - | | | | | | LABORATORY | | + + + + + + | BUN | 4 (L) | 7 - 18 mg/dL | [...] mL/min/1.73m2 | [facility] | | | LITHUANIAN | RATE,ESTIMATED | | MEDICAL | | | | mL/min/1.45x5Fqed than | | CENTER - | | [...] | 8.7 | 8.3 - 10.5 | [facility] | | | | | mg/dL | [...] + + | Bilirubin | 0.4 | 0.1 - 1.5 mg/dL | [facility] | | | Total | | | [facility] | | | | | | MEDICAL | | | | | | CENTER - | | | | | | LABORATORY | | + + + + + + | Total | 5.7 (L) | 6.0 - 7.8 g/dL | [...] ALT | 18 | 6 - 45 U/L | [facility] | | | | | | [facility] | | | | | | MEDICAL | | | | | | CENTER - | | | | | | LABORATORY | | + + + + + + | Alkaline | 132 (H) | 40 - 110 U/L | [facility] | | | Phosphatase | | | [facility] | | | | | | MEDICAL | | | | | | CENTER - | | | | | | LABORATORY | | + + + + + + | Globulin | 2.1 | g/dL | [facility] | | | [...] + + + + | BUN/Creatin | 5.2 | | [facility] | | | ine [...] + | [facility] | [address] | [place] | [phone] | | [facility] | | [address] | | | - LABORATORY | | | | + + + + + CBC with Differential (11/22/2014 7:59 AM PDT) + + + + + + | Component | Value | Ref Range | Performed | Pathologist | | | | | At | Signature | + + + + + + | WBC | 2.7 (L) | 4.0 - 11.0 K/uL | [facility] | | | | | | [facility] | | | | | | MEDICAL | | | | | | CENTER - | | | | | | LABORATORY | | + + + + + + | RBC | 2.60 (L) | 3.70 - 5.20 | [facility] | | | | | M/uL | [facility] | | | | | | MEDICAL | | | | | | CENTER - | | | | | | LABORATORY | | + + + + + + | Hemoglobin | 9.0 (L) | 11.5 - 16.0 | [facility] | | | | | g/dL | [facility] | | | | | | MEDICAL | | | | | | CENTER - | | | | | | LABORATORY | | + + + + + + | Hematocrit | 27.7 (L) | 34.0 - 47.0 % | [facility] | | | | | | [facility] | | | | | | MEDICAL | | | | | | CENTER - | | | | | | LABORATORY | | + + + + + + | MCV | 106.5 (H) | 83.0 - 101.0 fL | [facility] | | | | | | [facility] | | | | | | MEDICAL | | | | | | CENTER - | | | | | | LABORATORY | | + + + + + + | MCH | 34.7 | 28.0 - 35.0 pg | [facility] | | | | | | [facility] | | | | | | MEDICAL | | | | | | CENTER - | | | | | | LABORATORY | | + + + + + + | MCHC | 32.6 | 32.0 - 36.0 | [facility] | | | | | g/dL | [facility] | | | | | | MEDICAL | | | | | | CENTER - | | | | | | LABORATORY | | + + + + + + | RDW-CV | 22.0 (H) | <15.0 % | [facility] | | | | | | [facility] | | | | | | MEDICAL | | | | | | CENTER - | | | | | | LABORATORY | | + + + + + + | Platelet | 88 (L)Comment: | 140 - 440 K/uL | [facility] | | | Count | Consistent with previous | | [facility] | | | | results. | | MEDICAL | | | | | | CENTER - | | | | | | LABORATORY | | + + + + + + | MPV | 8.5 | fL | [facility] | | | | | | [facility] | | | | | | MEDICAL | | | | | | CENTER - | | | | | | LABORATORY | | + + + + + + | % | 36.0 (L) | 45.0 - 82.0 % | [facility] | | | Neutrophils | | | [facility] | | | | | | MEDICAL | | | | | | CENTER - | | | | | | LABORATORY | | + + + + + + | % | 35.0 | 20.0 - 45.0 % | [facility] | | | Lymphocytes | | | [facility] | | | | | | MEDICAL | | | | | | CENTER - | | | | | | LABORATORY | | + + + + + + | % Monocytes | 23.9 (H) | 4.0 - 12.0 % | [facility] | | | | | | [facility] | | | | | | MEDICAL | | | | | | CENTER - | | | | | | LABORATORY | | + + + + + + | % | 4.2 | 0.0 - 5.0 % | [facility] | | | Eosinophils | | | [facility] | | | | | | MEDICAL | | | | | | CENTER - | | | | | | LABORATORY | | + + + + + + | % Basophils | 0.9 | 0.0 - 1.0 % | [facility] | | | | | | [facility] | | | | | | MEDICAL | | | | | | CENTER - | | | | | | LABORATORY | | + + + + + + | Absolute | 1.00 (L) | 1.80 - 8.50 | [facility] | | | Neutrophils | | K/uL | [facility] | | | | | | MEDICAL | | | | | | CENTER - | | | | | | LABORATORY | | + + + + + + | Absolute | 0.90 | 0.60 - 3.20 | [facility] | [...] | 0.00 | 0.00 - 0.10 | [facility] | | | Basophils | | K/uL [...] [address] | [place] | [phone] | | [facility] | | [address] | | | - LABORATORY | | [...] | alteplase (CATHFLO ACTIVASE) | Given | 11/23/19 | 2 mg | | | | injection 2 mg 2 mg, | | 15 8:16 | | | | | Intracatheter, ONCE, Tue11/22/14 | | AM PDT | | | | | at 0830, For 1 dose | | | | | | + +--------+ +------+------+------+ +---+---+ | | | +---+---+ + +---------+ +-------+-------+---+ | CISplatin (PLATINOL) 39 mg in | New Bag | 11/23/19 | 39 mg | 539 | | | sodium chloride 0.9% 500 mL chemo | | 15 10:11 | | mL/hr | | | infusion 39 mg (20 mg/m2 | | AM PDT | | | | | 1.95 m2 Treatment plan recorded | | | | | | | BSA), Intravenous, Administer | | | | | | | over 1 Hours, ONCE, Tue11/22/14 | | | | | | | at 1000, For 1 dose, | | | | | | | Chemotherapy: This is a high risk | | | | | | | medication. Vesicant., | | | | | | + +---------+ +-------+-------+---+ +---+---+ | | | +---+---+ + +-------+ +-------+---+---+ | diphenhydrAMINE (BENADRYL) | Given | 11/23/19 | 25 mg | | | | injection 25 mg 25 mg, | | 15 9:18 | | | | | Intravenous, ONCE, 11/22/14 at | | AM PDT | | | | | 0930, For 1 dose | | | | | | + +-------+ +-------+---+---+ +---+---+ | | | +---+---+ + +---------+ +--------+-------+---+ | fosaprepitant (EMEND) 150 mg in | New Bag | 11/23/19 | 150 mg | 450 | | | sodium chloride 0.9% 150 mL IVPB | | 15 9:47 | | mL/hr | | | 150 mg, Intravenous, Administer | | AM PDT | | | | | over 20 Minutes, ONCE, Fri | | | | | | | 11/22/14 at 0930, For 1 dose, Do | | | | | | | not shake bag. Administer prior | | | | | | | to chemotherapy., | | | | | | + +---------+ +--------+-------+---+ +---+---+ | | | +---+---+ + +---------+ + +--------+---+ | gemcitabine (GEMZAR) 1,560 mg | New Bag | 11/23/19 | 1,560 mg | 582.1 | | | in sodium chloride 0.9% 250 mL | | 15 11:17 | | mL/hr | | | chemo infusion 1,560 mg (800 | | AM PDT | | | | | mg/m2 | | | | | | | 1.95 m2 Treatment plan recorded | | | | | | | BSA), Intravenous, Administer | | | | | | | over 30 Minutes, ONCE, Fri | | | | | | | 11/22/14 at 1100, For 1 dose, | | | | | | | Chemotherapy: This is a high risk | | | | | | | medication. Do not refrigerate., | | | | | | | | | | | | | + +---------+ + +--------+---+ +---+---+ | | | +---+---+ + +-------+ +-------+---+---+ | heparin 100 units/mL flush | Given | 11/23/19 | 500 | | | | injection 500 Units 500 Units (5 | | 15 11:54 | Units | | | | mL), Intracatheter, PRN, Line | | AM PDT | | | | | Care, Starting Tue11/22/14 at | | | | | | | 0905, , | | | | | | + +-------+ +-------+---+---+ +---+---+ | | | +---+---+ + +---------+ +---+-------+---+ | ondansetron (ZOFRAN) 8 mg, | New Bag | 11/23/19 | | 204 | | | dexamethasone (DECADRON) 4 mg in | | 15 9:27 | | mL/hr | | | sodium chloride 0.9% 50 mL IVPB | | AM PDT | | | | | Intravenous, Administer over 16 | | | | | | | Minutes, ONCE, 11/22/14 at | | | | | | | 0930, For 1 dose, Administer | | | | | | | prior to chemotherapy., | | | | | | + +---------+ +---+-------+---+ +---+---+ | | | +---+---+ documented in this encounter"
--- OUTSIDE RECORDS SUMMARY | ~2019-07-09 | XMS | Encounter Summary ---
Demographics + + + | Address | [address] | | | [place] [address] | + + + | Home Phone [...] Author | [facility] | | | and Eduardo[place] | + + + | Organization | [facility] | | | and [place]ardo[place] | + + + | Address | Unknown | + + + | Phone | Unavailable | + + + Support + + + + + | Name | Relationship | Address | Phone | + + + + + | Poncho Oquendo | ECON | [address] | | | | | [place] | | | | | [address] | | + + + + + | Marta Upton | ECON | [place] | | | | | [address] | | + + + + + Care Team Providers + +------+ + | Care Vending Machine Assembler Name | Role | Phone | + +------+ + | Valeriy Carmona DO | PCP | | + +------+ + Reason for Visit +--------+ + | Reason | Comments | +--------+ + | Other | | +--------+ + Encounter Details +--------+--------+ + + + | Date | Type | Department | Care Team | Description | +--------+--------+ + + + | 09/03/ | Refill | [facility] | Reinaldo, | Other | | 2015 | | MED CTR MEDICAL | Epifanio Soler MD [address] | | | | | [address] | [facility] | | | | | W [facility] | [place] [address] | | | | | [place] [address] | [phone] | | | | | [phone] | | | +--------+--------+ + + + [...] [address] | | | | | | [place] [address] | | | | | | [phone] | | | | | | | | +--------+---------+ + + + documented as of this encounter Visit Diagnoses + + | Diagnosis | + + | 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
--- OUTSIDE RECORDS SUMMARY | ~2019-07-09 | XMS | Encounter Summary ---
Demographics + + + | Address | [address] | | | [place] [address] | + + + | Home Phone | | + + + | Preferred Language | Unknown | + + + | Marital Status | Single | + + + | Pentecostal Affiliation | NON | + + + | Race | White | + + + | Ethnic Group | Not or | + + + Author + + + | Author | [facility] | + + + | Organization | [facility] | + + + | [...] Team Providers + +------+ + | Care Mat Cutter Name | Role | Phone | + +------+ + | Tomasa Wagner | PCP | | + +------+ + Reason for Visit + + + | Reason | Comments | + + + | Medical Records | [facility] - OUTSIDE PROCEDURE REPORT | | Review | | + + + Encounter Details +--------+ + + + + | Date | Type | Department | Care Team | Description | +--------+ + + + + | 07/26/ | Abstract | Digestive Health | Tai Stanton, | Medical Records | | 2013 | | [facility] | [address] | Review ([facility] - | | | | [address] | [address] | OUTSIDE PROCEDURE | | | | Mailcode: [place] | [place], [place] | REPORT) | | | | for Health and | [address] | | | | | [place] [address] | [phone] | | | | | [place], [place] | | | | | | [address] | | | | | | [phone] | | | +--------+ + + + [...]
--- OUTSIDE RECORDS SUMMARY | ~2019-07-09 | XMS | Encounter Summary ---
Demographics + + + | Address | [address] | | | [place] [address] | + + + | Home Phone [...] Providers + +------+ + | Care Freight Brake Operator Name | Role | Phone | [...] | Facial Plastics & | [address] | release extended for | | | | Reconstructive | Velma Dennis, | her employer.) | | | | Services at [facility] | [place] [address] | | | | | [address] | [phone] | | | | | Mailcode: CH5E | | | | | | [facility] | | | | | | and Healing, | | | | | | [address] | | | | | | [place], [place] | | | | | | [address] | | | | | | [phone] | | | +--------+ + + + [...]
--- OUTSIDE RECORDS SUMMARY | ~2019-07-09 | XMS | Encounter Summary ---
Demographics + + + | Address | [address] | | | [place] [address] | + + + | Home Phone [...] Author | [facility] | | | and Eduardo[place] | + + + | Organization | [facility] | | | and Eduardoana | + + + | Address | Unknown | + + + | Phone | Unavailable | + + + Support + + + + + | Name | Relationship | Address | Phone | + + + + + | Poncho Oquendo | ECON | [address] | | | | | [place] | | | | | [address] | | + + + + + | Marta Upton | ECON | [place] | | | | | [address] | | + + + + + Care Team Providers + +------+ + | Care Compressor Engineer Name | Role | Phone | + +------+ + | Valeriy Carmona DO | PCP | | + +------+ + Reason for Visit + + + | Reason | Comments | + + + | Lab Results | | + + + Encounter Details +--------+ + + + + | Date | Type | Department | Care Team | Description | +--------+ + + + + | 10/10/ | Telephone | [facility] | Reinaldo, | Lab Results | | 2018 | | MED [facility] | Epifanio Soler MD [address] | | | | | [address] | [facility] | | | | | [address] | [place] [address] | | | | | [place] [address] | [phone] | | | | | [phone] | | | +--------+ + + + [...] [address] | | | | | | [place] [address] | | | | | | [phone] | | | | | | | | +--------+---------+ + + + documented as of this encounter Visit Diagnoses Not on filedocumented in this encounter"
--- OUTSIDE RECORDS SUMMARY | ~2019-07-09 | XMS | Encounter Summary ---
Demographics + + + | Address | [address] | | | [place] [address] | + + + | Home Phone [...] Author | [facility] | | | and Eduardoana | + + + | Organization | [facility] | | | and [place] | + + + | Address | Unknown | + + + | Phone | Unavailable | + + + Support + + + + + | Name | Relationship | Address | Phone | + + + + + | Poncho Oquendo | ECON | [address] | | | | | [place] | | | | | [address] | | + + + + + | Marta [place] | ECON | [place] | | | | | [address] | | + + + + + Care Team Providers + +------+ + | Care Clinical Operations Manager Name | Role | Phone [...] WALL | | | | | [address] | [place] [address] | | | | | [place] [address] | [phone] | | | | | [phone] | | | +--------+ + + + [...] [address] | | | | | | [place] [address] | | | | | | [phone] | | | | | | | | +--------+---------+ + + + documented as of this encounter Visit Diagnoses + + | Diagnosis | + + | Gallbladder cancer, 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
--- OUTSIDE RECORDS SUMMARY | ~2019-07-09 | XMS | Encounter Summary ---
Demographics + + + | Address | [address] | | | [place] [address] | + + + | Home Phone [...] Team Providers + +------+ + | Care Produce Weigher Name | Role | Phone | + +------+ + | Tomasa Wagner | PCP | | + +------+ + Encounter Details +--------+ + + + + | Date | Type | Department | Care Team | Description | +--------+ + + + + | 06/20/ | MyChart | [facility] | Miguel Seymour, | RE: Do I need to | | 2014 | Encounter | [facility] | [address] | continue the Lovenox | | | | [address] | injections? | | | | [address] | [place], [place] | | | | | Alexis, [facility] floor | [address] | | | | | [place], [place] | [phone] | | | | | [address] | | | | | | [phone] | | | +--------+ + + + [...]
--- OUTSIDE RECORDS SUMMARY | ~2019-07-09 | XMS | Encounter Summary ---
Demographics + + + | Address | [address] | | | [place] [address] | + + + | Home Phone [...] Author + + + | Author | [facility] | + + + | Organization | [facility] | + + + | Address [...] Team Providers + +------+ + | Care Mdm Sr Name | Role | Phone | + [...] | 07/04/ | Telephone | Hematology/Medical | Matilda Elva M, | Other | | 2012 | | Oncology at [facility] | [address] | | | | | [address] [facility] | [place] [address] | | | | | Mailcode: CH7M | [place] [address] | | | | | [facility] | [phone] | | | | | and Healing, | | | | | | [place] [address] | | | | | | [place], [place] | | | | | | [address] | | | | | | [phone] | | | +--------+ + + + [...]
--- OUTSIDE RECORDS SUMMARY | ~2019-07-09 | XMS | Encounter Summary ---
Demographics + + + | Address | [address] | | | [place] [address] | + + + | Home Phone [...] + + + | Author | [facility] | + + + | Organization | [facility] | + + [...] Team Providers + +------+ + | Care Offset Label Rewinder Name | Role | Phone | + [...] + + | 05/28/ | Office | Preoperative | O Rachael Carbajal | Pre-op evaluation | | 2014 | Visit | Medicine Clinic at | MD Josy [address] | (Primary Dx); | | | | [facility] 4th Floor Day | [address] | Preoperative | | | | Stay [address] | [place], [place] | testing; Pelvic | | | | [address] | [address] | mass; Other | | | | Mailcode: [id number] | [phone] | specified | | | | [facility] | | pre-operative | | | | [address] [place], [place] | | examination | | | | [address] | | | | | | [phone] | | | +--------+---------+ + + + Anesthesia Record + + + + + | Procedure Name | Responsible | Anesthesia Start | Anesthesia Stop Time | | | Anesthesiologist | Time | | + + + + + | EXPLORATORY | Epifanio Shangraw, MD | 06/06/14 0711 | 06/06/14 1115 | | LAPAROTOMY; TOTAL | | | | | ABDOMINAL | | | | | HYSTERECTOMY; | | | | | BILATERAL | | | | | SALPINGO-OOPHORECTOM | | | | | Y; OMENTECTOMY; LEFT | | | | | PELVIC AND | | | | | PARA-AORTIC | | | | | LYMPHADENECTOMY, | | | | | specimens to | | | | | pathology (Bilateral | | | | | Abdomen) | | | | + + + + + +----+---+ + + | Da | T | Event | Comment | | te | i | | | | | m | | | | | e | | | +----+---+ + + | 04 | 0 | Eq Check | Anesthesia machine checked Equipment verified | | /2 | 6 | | | | 3/ | 2 | | | | 20 | 4 | | | | 15 | | | | +----+---+ + + | | 0 | Pt. Check | Prior to anesthesia start, pt. Identified, examined, chart | | | 6 | | reviewed, PARQ held, anesthetic plan made or approved by | | | 4 | | attending anesthesiologist. NPO status confirmed as appropriate | | | 0 | | for procedure Preoperative evaluation: unchanged | +----+---+ + + | | 0 | An Start | | | | 6 | Data | | | | 4 | | | | | 3 | | | +----+---+ + + | | 0 | Vitals | Monitors applied Vital signs checked Patient ready for anesthesia | | | 6 | Checked | | | | 4 | | | | | 5 | | | +----+---+ + + | | 0 | O2 by NC | | | | 6 | | | | | 4 | | | | | 6 | | | +----+---+ + + | | 0 | Block Pause | | | | 6 | | | | | 4 | | | | | 6 | | | +----+---+ + + | | 0 | Epidural | | | | 6 | Start | | | | 4 | | | | | 7 | | | +----+---+ + + | | 0 | Epidural | | | | 7 | Stop | | | | 0 | | | | | 8 | | | +----+---+ + + | | 0 | An Start | | | | 7 | | | | | 1 | | | | | 1 | | | +----+---+ + + | | 0 | An Start | | | | 7 | Data | | | | 2 | | | | | 9 | | | +----+---+ + + | | 0 | Vitals | Monitors applied Vital signs checked Patient ready for anesthesia | | | 7 | Checked | | | | 3 | | | | | 5 | | | +----+---+ + + | | 0 | Std. Airway | | | | 7 | Mgt. | | | | 4 | | | | | 0 | | | +----+---+ + + | | 0 | Quick Note | OG tube placed atraumatically per surgery request. | | | 7 | | | | | 4 | | | | | 5 | | | +----+---+ + + | | 0 | Ready | | | | 7 | | | | | 5 | | | | | 0 | | | +----+---+ + + | | 0 | Abx | | | | 8 | Administere | | | | 0 | d | | | | 0 | | | +----+---+ + + | | 0 | Timeout | | | | 8 | | | | | 1 | | | | | 0 | | | +----+---+ + + | | 0 | Incision | | | | 8 | | | | | 1 | | | | | 2 | | | +----+---+ + + | | 0 | Quick Note | O2 sat slowly dropped to 94%, was put on 100% FiO2. I gave | | | 8 | | recruitment maneuver, sats quickly dropped to 84%. Auscultated | | | 4 | | and found no L lung sounds but clear R lung sounds. Pulled ETT | | | 5 | | back 1.5cm, confirmed b/l breath sounds and sats quickly carrillo | | | | | back to 99-100%. | +----+---+ + + | | 1 | Surgery end | | | | 0 | | | | | 5 | | | | | 6 | | | +----+---+ + + | | 1 | An Extubate | Neuromuscular function Intact. Pharynx suctioned. Patient obeys | | | 1 | | commands. Adequate pulmonary mechanics. | | | 0 | | | | | 4 | | | +----+---+ + + | | 1 | an stop | | | | 1 | data | | | | 0 | | | | | 6 | | | +----+---+ + + | | 1 | Anesthesia | | | | 1 | End | | | | 1 | | | | | 5 | | | +----+---+ + + +------+ [...] + + | RETIRE | 04/28/12; 0703; 12/02/16 | 04/28/12 0703 by | 12/02/16 [...] +--------+ + + + | RETIRE | 06/06/14; 06/07/14; 1215; No; | 06/06/14 0000 by | 06/07/14 121 by | | D - | placed in OR by Dr. Edelmira Plaza; | Silvia Bartlett RN | Alexa Carbone RN | | Urinar | López; 16FR | | | | y Cath | [...] +--------+ + + + | RETIRE | 06/06/14; No; midline; abdomen; | 06/06/14 0000 by | 12/02/16 1622 by | | D - | 12/02/16 (Automatic cleanup per | Silvia Bartlett RN | Discontinued After | | Incisi | RA 3006--contact admin for | | Discharge | | on | questions.); 1622 (Automatic | | | | | cleanup per RA 3006--contact | | | | | admin for questions.) | | | +--------+ + + + | RETIRE | 06/06/14; 0607; 06/09/14; 1000; | 06/06/14 0607 by | 06/09/14 1000 by | | D - | No; L hand 18g piv; 18; Left; | Charissa Oconnell RN | Michelle Dow RN | | Periph | Hand; Lidocaine; Positive; 1 | | | | eral | | | | | Line | | | | +--------+ + + + | RETIRE | 06/06/14; 0702; 12/02/16 | 06/06/14 0702 by | 12/02/16 1622 by | | D - | (Automatic cleanup per RA | Jony Hassan MD | Discontinued After | | Periph | 3006--contact admin for | | Discharge | | eral | questions.); 1622 (Automatic | | | | Nerve | cleanup per RA 3006--contact | | | | Block/ | admin for questions.); T9-10; | | | | Epidur | Epidural catheter | | | | al | | [...] +--------+ + + + | RETIRE | 06/07/14; 1410; No; 16; Right; | 06/06/14 0851 by | 06/07/14 1410 by | | D - | Hand; Site Problems | | Alexa Carbone RN | | Periph | | | | | eral | | | [...] + + + | Blood Pressure | 116/78 | 05/28/2014 10:08 AM | | | | | PDT | | + + + + + | Pulse | 77 | 05/28/2014 10:08 AM | | | | | PDT | | + + + + + | Temperature | 36.6 C (97.9 F) | 05/28/2014 10:08 AM | | | | | PDT | | + + + + + | Respiratory Rate | 14 | 05/28/2014 10:08 AM | | | | | PDT | | + + + + + | Oxygen Saturation | 96% | 05/28/2014 10:08 AM | | | | | PDT | | + + + + + | Inhaled Oxygen | - | - | | | Concentration | | | | + + + + + | Weight | 81.6 kg (180 lb) | 05/28/2014 10:08 AM | neck 34 cm | | | | PDT | | + + + + + | Height | 162.6 cm (5' 4") | 05/28/2014 10:08 AM | | | | | PDT | | + + + + + | Body Mass Index | 30.9 | 05/28/2014 10:08 AM | | | | | PDT | | + + + + + documented in this encounter Patient Instructions Patient Instructions O Rachael Carbajal MD - 05/28/2014 10:34 AM PDT PREOPERATIVE INSTRUCTIONS Empty stomach before surgery On the day BEFORE your surgery, drink plenty of fluids and stay well hydrated NOTHING to eat or drink after midnight the night before surgery. This includes water, coffee, candy, mints, gum. Medications Instructions TAKE the following medications with a sip of water on the morning of surgery: norco if needed for pain Do NOT take the following medications on the morning of surgery: Vitamins and minerals laxatives Unless otherwise directed by your surgeon, do not take any Aspirin, vitamin E or non-simon roidal anti-inflammatory (NSAIDs i.e. Advil, Aleve, Ibuprofen) or herbal supplements 7-14 da ys prior to your surgery. These drugs may interfere with normal blood clotting and may cause excessive bleeding and bruising during or after the surgery. If you need a pain medication for [...] you to sit, stand or walk. Surgery check-in location: Admitting - [facility], ninth floor [facility] Surgery Check in Time: The Preoperative Medicine Clinic is not in the position to give you accurate information regarding surgical check in time. We refer you back to your surgical office regarding this important information. Going Home Your surgical team will decide when you are medically ready to go home. If you stayed in the hospital after surgery, please arrange for your ride to come for yo u around 9AM on the day your doctor says you can go home. If you have questions or concerns after you go home, call your doctor s office. If it is after office hours, call the [facility] frame gate mortiser operator at [phone] and ask them to page him or h er. documented in this encounter Progress Notes Martha Duggan MA - 05/28/2014 10:57 AM PDT Venipuncture performed in clinic, blood sample obtained from Right antecubital site Hemoglo bin A1C POCT performed during clinic visit. Blood sample obtained from venipuncture performe d to obtain other lab tests. aRchael Luna MD - 05/28/2014 10:08 AM PDT PREOPERATIVE CONSULT NOTE Author: RACHAEL NGUYEN MD Referring Physician: Miguel Casillas MD Primary Care Provider: SANDY Tadeo Reason for Consult: Preoperative evaluation and risk assessment Proposed Procedure/Date: diagnostic laparoscopy, possible biopsies, possible exploratory la parotomy, JAKE, BSO, staging. 06/06 HISTORY OF PRESENT ILLNESS: Aura Upton is a 53 y.o. female here for preoperative eval uation for above procedure. She was recently diagnosed with a L adnexal mass (complex cysti c mass) found incidentally on surveillance imaging (has h/o gallbladder cancer s/ p resectio n in 04/2012). Other symptoms include abdominal pain. She was evaluated by Dr. Casillas, not ing concern for malignancy versus Non-malignant mass, with elevated CA-125. She is schedul ed for the above surgery. Today, she reports that her health in general is very good. She is limited by some chronic knee pain, though was taking a swim class until recently and can climb 2 flights of stairs. Denies cardiopulmonary symptoms or limitations. Her medical history is otherwise fairly l imited. Denies h/o cardiac or pulmonary disease. Denies h/o chest pain/pressure, dyspnea, WAY, edema, palpitations, or orthopnea/PND. No OS A, CKD, DM. Denies a history of adverse reaction to anesthesia, difficult intubation/extubation, abnorm al surgical bleeding, or other easy bleeding or bruising. ROS: Pulmonary: no cough no rhinorrhea no sputum no URI no shortness of breath no wheezing Pt. H as no asthma no COPD No dx of sleep apnea Risks factors for sleep apnea: Age>50 Pt at low risk of MERNA Cardiovascular: Functional Capacity: Moderate - dyspnea on exertion, PND, palpitations and chest pressure no CAD no CHF no hypertension no pacemaker GI/Hepatic: abd pain with adnexal mass no GERD liver disease (h/o liver resection with angel luis tment for gallbladder cancer) : No dysuria no renal failure Other : Types: genitourinary malignancy Endo: no Diabetes: Neurological: no seizures HX CORTICOSTEROID (prior lumbar ELIE) Remote > 6 months psychiatri c problem (recent anxiety related to diagnosis) pain Current Pain Level: MS: No chronic neck pain/stiffness arthritis (mainly knees) Type: osteoarthritis Heme/Onc: Pt. has: no active bleeding no Bleeding diathesis / thrombotic bleeding Previous Transfusions: no transfusion hx Hx: Malignancy: cancer, Location: Metastasis: Skin: No open wounds or sores No hx MRSA/VRE/Active skin infection Current medications reviewed / updated Current Medication List Name Sig STOOL SOFTENER ORAL Take 100 mg by mouth once daily as needed (constipation). HYDROCODONE 5 MG-ACETAMINOPHEN 325 MG TABLET Take 1 tablet by mouth every four hours as nee ded. Not to exceed 10 tablets per any 24 hour period. (Not to exceed 3250 mg of acetaminophe n from all products per 24 hour period.) PROBIOTIC ORAL Take 1 capsule by mouth once daily. MULTI VITAMIN ORAL Take by mouth once daily. Allergies reviewed / updated Allergies Allergen Reactions Sulfacetamide Sodium Hives Past medical history reviewed / updated Past Medical History Diagnosis Date Chronic back pain greater than 3 months duration Gallbladder carcinoma Cholangiocarcinoma Maintenance chemotherapy Diverticulosis of colon Hemorrhoids Depressive disorder Arthritis Adnexal mass Past surgery reviewed and updated Past Surgical History Procedure Date Tubal ligation 2002 section 1998 Endoscopic sinus surgery 2009 deviated septum Laparoscopic cholecystectomy 2012 Dilation and curettage 2000 miscarriage Dilation and curettage 2001 miscarriage Laparoscopic knee surgery 09/06/13 Laparoscopic knee surgery 03/21/14 Liver resection 04/2012 Family history reviewed / updated Family History Problem Relation Diabetes Father Coronary Artery Disease Father s/p CABG Cancer Other niece thyroid Social history reviewed / updated History Substance Use Topics Smoking status: Former Smoker -- 0.50 packs/day for 25 years Types: Cigarettes Quit date: 02/14/2006 Smokeless tobacco: Never Used Alcohol Use: 0.5 oz/week 1 Glasses of wine per week Comment: 2-3 glasses of wine per month. PHYSICAL EXAM: Last Vitals: BP 116/78 | Pulse 77 | Temp (Src) 36.6 C (97.9 F) (Forehead) | RR 14 | Ht 1.626 m (5' 4") | Wt 81.647 kg (180 lb) | SpO2 96% | BMI 30.88 kg/(m^2) Body mass index is 3 0.88 kg/(m^2). General: Patients general appearance: Healthy, Alert, No distress, Cooperative and Age appr opriate Head & Neck/Airway: Neck ROM: full Neck Circumference: 34 cm. TM Distance:> 6cm Dentition: dental implants, bridges or caps present and missing teeth Cachorro e of last Dental Exam: 11/2013 Mallampati: II Mouth Opening: > = 3 cm C-Spine: normal Neck A natomy: Normal Lung Exam: CTA(B), no w/r/r, good air movement, no increased work of breathing and speaking in full sentences breath sounds normal Cardiac: Rhythm: regular Rate: normal murmur, carotid bruit, JVD, peripheral edema and weak pulses Abdominal: General Findings: Nondistended obesity Bowel Sounds: bowel sounds are normal Musculoskeletal: Findings: tone normal and normal strength Neuro/Psych: alert Findings: Cranial nerves 2-12 intact, Motor 5/5 strength globally with n ormal tone, Normal affect, Alert, oriented to person, place, time and No tremor Integument: - open wounds Color: pink Texture: Skin texture - normal Turgor: turgor normal Implants: None, LABS & DATA REVIEWED/ORDERED Lab Results Component Value Date WBC 6.37 [...] 05/28/2014 TP 7.0 05/28/2014 ALB 3.7 05/28/2014 Lab Results Component Value Date ABO O 04/27/2012 RH Positive 04/27/2012 Updated T&S pending Lab Results Component Value Date A1C 5.1 04/27/2012 EKG: Not needed Lab Results Component Value Date RATE 65 04/27/2012 ATRIALRATE 65 04/27/2012 PA 142 04/27/2012 QRS 86 04/27/2012 QT 398 04/27/2012 QTC 413 04/27/2012 PAXIS 56 04/27/2012 RAXIS 36 04/27/2012 TAXIS 36 04/27/2012 EKGDX Value: Normal sinus rhythm Normal ECG "I have personally interpreted this report, e 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 No Calculate the combined surgical and patient-specific risk: using the [facility] perioperative ca rdiac risk calculator, the risk of major adverse cardiac event (MACE) is: less than 1%. No further risk stratification for coronary disease is indicated. ASSESSMENT and RECOMMENDATIONS: Surgical/anesthesia risk assessment: Aura Upton is a 53 y.o. female with diagnosi s of adnexal mass, scheduled for the above surgery. According to ACC/AHA guidelines, the pa tielefty does not meet criteria for additional testing. Medication management recommendations: The patient was advised to continue all usual med ications except as noted in Patient Instructions (After Visit Summary given to pt) The patient is stable / optimized for surgery. Additional testing/optimization is not nee ded. Thank you for the opportunity to contribute to this patient's care. RACHAEL NGUYEN MD [facility] DEPARTMENT OF MEDICINE DIVISION OF HOSPITAL MEDICINE PREOPERATIVE MEDICINE INVESTIGATIONS CHIEF DIRECT MARKETING EXECUTIVE [address] [place] [address] [phone] documented in thi s encounter Plan of Treatment Not on filedocumented as of this encounter Procedures + +--------+ + + + | Procedure Name | Priori | Date/Time | Associated Diagnosis | Comments | | | ty | | | | + +--------+ + + + | PA COLLECTION VENOUS | Routin | 05/28/2014 | Other specified | | | BLOOD,VENIPUNCTURE | e | 10:57 AM | pre-operative | | | | | PDT | examination | | + +--------+ + + + | ANTIBODY SCREEN | Routin | 05/28/2014 | Preoperative | Results for this | | | e | 10:11 AM | testing Pelvic mass | procedure are in the | | | | PDT | | results section. | + +--------+ + + + | TYPE AND SCREEN | Routin | 05/28/2014 | Preoperative | Results for this | | | e | 10:11 AM | testing Pelvic mass | procedure are in the | | | | PDT | | results section. | + +--------+ + + + | ABO & RH TYPE | Routin | 05/28/2014 | Preoperative | Results for this | | | e | 10:11 AM | testing Pelvic mass | procedure are in the | | | | PDT | | results section. | + +--------+ + + + | CBC AND AUTO DIFF | Routin | 05/28/2014 | Preoperative | Results for this | | | e | 10:10 AM | testing Pelvic mass | procedure are in the | | | | PDT | | results section. | + +--------+ + + + | INR | Routin | 05/28/2014 | Preoperative | Results for this | | | e | 10:10 AM | testing Pelvic mass | procedure are in the | | | | PDT | | results section. | + +--------+ + + + | CBC, WITH | Routin | 05/28/2014 | Preoperative | Results for this | | DIFFERENTIAL | e | 10:10 AM | testing Pelvic mass | procedure are in the | | | | PDT | | results section. | + +--------+ + + + | COMPLETE METABOLIC | Routin | 05/28/2014 | Preoperative | Results for this | | SET | e | 10:10 AM | testing Pelvic mass | procedure are in the | | (NA,K,CL,CO2,BUN,CRE | | PDT | | results section. | | AT,GLUC,CA,AST,ALT,B | | | | | | CIRILO TOTAL,ALK | | | | | | PHOS,ALB,PROT TOTAL) | | | | | + +--------+ + + + | APTT (ACT. PART. | Routin | 05/28/2014 | Preoperative | Results for this | | THROMBO TIME) | e | 10:10 AM | testing Pelvic mass | procedure are in the | | | | PDT | | results section. | + +--------+ + + + | HEMOGLOBIN A1C, POC | Routin | 05/28/2014 | Pre-op evaluation | Results for this | | | e | 9:33 AM | | procedure are in the | | | | PDT | | results section. | + +--------+ + + + documented in this encounter Results ANTIBODY SCREEN (05/28/2014 10:11 AM PDT) + + + + + [...] [facility] | [address] | [place] [address] | | | SERVICES, | [address] | | | | TRANSFUSION MEDICINE | | | | + + + + + ABO & RH TYPE (05/28/2014 10:11 AM PDT) + + + + + [...] [facility] | [address] | [place] [address] | | | SERVICES, | [address] | | | | TRANSFUSION MEDICINE | | | | + + + + + CBC AND AUTO DIFF (05/28/2014 10:10 AM PDT) + + + + + + | Component | Value | Ref Range | Performed | Pathologist | | | | | At | Signature | + + + + + + | WHITE CELL | 6.37 | 4.40 - 11.00 | [facility] | | | COUNT | | K/cu mm | LABORATORY | | | | | | SERVICES, | | | | | | CORE | | + + + + + + | RED CELL | 4.92 | 4.00 - 5.20 | [facility] | | | COUNT | | M/cu mm | LABORATORY | | | | | | SERVICES, | | | | | | CORE | | + + + + + + | HEMOGLOBIN | 14.5 | 12.0 - 16.0 | [facility] | | | | | g/dL | LABORATORY | | | | | | SERVICES, | | | | | | CORE | | + + + + + + | HEMATOCRIT | 43.3 | 36.0 - 46.0 % | [facility] | | | | | | LABORATORY | | | | | | SERVICES, | | | | | | CORE | | + + + + + + | MCV | 88.0 | 80.0 - 96.0 fL | [facility] | | | | | | LABORATORY | | | | | | SERVICES, | | | | | | CORE | | + + + + + + | MCHC | 33.5 | 33.0 - 35.5 | [facility] | | | | | g/dL | LABORATORY | | | | | | SERVICES, | | | | | | CORE | | + + + + + + | RDW SD | 42.0 | 35.1 - 46.3 fL | [facility] | | | | | | LABORATORY | | | | | | SERVICES, | | | | | | CORE | | + + + + + + | PLATELET | 194 | 150 - 400 K/cu | [facility] | | | COUNT | | mm | LABORATORY | | | | | | SERVICES, | | | | | | CORE | | + + + + + + | MPV | 9.8 | 9.7 - 12.3 fL | [facility] [...] + + + + + + | NEUTROPHIL | 60.8 | 50.0 - 70.0 % | [facility] | | | % | | | LABORATORY | | | | | | SERVICES, | | | | | | CORE | | + + + + + + | LYMPHOCYTE | 25.4 | 18.0 - 42.0 % | [facility] | | | % | | | LABORATORY | | | | | | SERVICES, | | | | | | CORE | | + + + + + + | MONOCYTE % | 10.7 (H) | 3.5 - 9.0 % | [facility] | | | | | | LABORATORY | | | | | | SERVICES, | | | | | | CORE | | + + + + + + | EOS % | 1.9 | 1.0 - 3.0 % | [facility] | | | | | | LABORATORY | | | | | | SERVICES, | | | | | | CORE | | + + + + + + | BASO % | 0.9 | 0.0 - 2.0 % | [facility] | | | | | | LABORATORY | | | | | | SERVICES, | | | | | | CORE | | + + + + + + | IG% | 0.3Comment: Immature | 0.0 - 0.6 % | [facility] | | | | Granulocytes (IG) | | LABORATORY | | | | include metamyelocytes, | | SERVICES, | | | | myelocytes and | | CORE | | | | promyelocytes. Bands | | | | | | are not included in the | | | | | | IG count. Bands are | | | | | | included in the | | | | | | neutrophil count. | | | | + + + + + + | NEUTROPHIL | 3.87 | 1.80 - 7.70 | [facility] | | | # | | K/cu mm | LABORATORY | | | | | | SERVICES, | | | | | | CORE | | + + + + + + | LYMPHOCYTE | 1.62 | 1.00 - 4.80 | [facility] | | | # | | K/cu mm | LABORATORY | | | | | | SERVICES, | | | | | | CORE | | + + + + + + | MONOCYTE # | 0.68 | 0.10 - 0.90 | [facility] | | | | | K/cu mm | LABORATORY | | | | | | SERVICES, | | | | | | CORE | | + + + + + + | EOS # | 0.12 | 0.00 - 0.50 | [facility] | | | | | K/cu mm | LABORATORY | | | | | | SERVICES, | | | | | | CORE | | + + + + + + | BASO # | 0.06 | 0.00 - 0.10 | [facility] | | | | | K/cu mm | LABORATORY | | | | | | SERVICES, | | | | | | CORE | | + + + + + + | IG# | 0.02 | 0.00 - 0.03 | [facility] | | | | | K/cu mm | LABORATORY | | | | | | SERVICES, | | | | | | CORE | | + + + + + + + + | Specimen | + + | Blood - Blood | + + + + + | Narrative | Performed At | + + + | Immature Granulocytes (IG) include metamyelocytes, myelocytes | [facility] | | and promyelocytes. Bands are not included in the IG count. Bands are | LABORATORY | | included in the neutrophil count. | [facility] | + + + + + + + + | Performing | Address | City/State/Zipcode | Phone Number | | Organization | | | | + + + + + | [facility] | [address] | [place] [address] | | | [facility] | [address] | | | + + + + + INR (05/28/2014 10:10 AM PDT) + +-------+ [...] | + + + + + | [facility] | [address] | [place] [address] | | | [facility] | [address] [...] 0.7 U/mL | LABORATORY | | | [facility] | + + + + + + + + | Performing | Address | City/State/Zipcode | Phone Number | | Organization | | | | + + + + + | [facility] | [address] | [place] [address] | | | [facility] | [address] [...] | | | LABORATORY | | | [place] | | | SERVICES, | | | [...] | + + + + + | [facility] | [address] | [place] [address] | | | SERVICES, CORE | [address] | | | + + + + + HEMOGLOBIN A1C,POC (05/28/2014 9:33 AM PDT) + +-------+ + + + | Component | Value | Ref Range | Performed | Pathologist | | | | | At | Signature | + +-------+ + + + | HEMOGLOBIN | 5.3 | 4.0 - 5.7 % | [facility] - | | | A1C,POC | | | [facility] | | | [...] | [facility] | [address] | [place], [place] | | | DG POINT OF CARE | [address] | [phone] | | | TESTS | | | | + + + + + documented in this encounter Visit Diagnoses + + | Diagnosis | + + | Pre-op evaluation - Primary Preoperative examination, unspecified | + + | Preoperative testing Preoperative examination, unspecified | + + | Pelvic mass Abdominal or pelvic swelling, mass or lump, unspecified site | + + | Other specified pre-operative examination | + + documented in this encounter
--- OUTSIDE RECORDS SUMMARY | ~2019-07-09 | XMS | Encounter Summary ---
Demographics + + + | Address | [address] | | | [place] [address] | + + + | Home Phone | | + + + | Preferred Language | Unknown | + + + | Marital Status | | + + + | Religion Affiliation | Unknown | + + + | Race | Unknown | + + + | Ethnic Group | Unknown | + + + Author + + + | Author | [facility] | | | and [place] | + + + | Organization | [facility] | | | and [facility] | + + + | Address | Unknown | + + + | Phone | Unavailable | + + + Support + + + + + | Name | Relationship | Address | Phone | + + + + + | Poncho Oquendo | ECON | [address] | | | | | [place] | | | | | [address] | | + + + + + | Marta Upton | ECON | [address] [place] | | | | | [address] | | + + + + + Care Team Providers + +------+ + | Care Security Operations Center Analyst Name | Role | Phone | + +------+ + | Valeriy Carmona DO | PCP | | + +------+ + Encounter Details +--------+ + + + + | Date | Type | Department | Care Team | Description | +--------+ + + + + | 05/20/ | Abstract | [facility] | [facility] | | | 2016 | | [facility] | P, RN | | | | | [facility] [address] | | | | | | [address] | | | | | | [place] [address] | | | | | | [phone] | | | +--------+ + + + [...] | | | | | [place] [address] | | | | | | [phone] | | | | | | | | +--------+---------+ + + + documented as of this encounter Visit Diagnoses Not on filedocumented in this encounter"
--- OUTSIDE RECORDS SUMMARY | ~2019-07-09 | XMS | Encounter Summary ---
Demographics + + + | Address | [address] | | | [place] [address] | + + + | Home Phone [...] Team Providers + +------+ + | Care Fire Dispatcher Name | Role | Phone | [...] | Facial Plastics & | [address] | release extended for | | | | Reconstructive | Velma Dennis, | her employer.) | | | | Services at [facility] | [place] [address] | | | | | [address] | [phone] | | | | | Mailcode: CH5E | | | | | | [facility] | | | | | | and Healing, | | | | | | [address] | | | | | | [place], [place] | | | | | | [address] | | | | | | [phone] | | | +--------+ + + + [...]
--- OUTSIDE RECORDS SUMMARY | ~2019-07-09 | XMS | Encounter Summary ---
Demographics + + + | Address | [address] | | | [place] [address] | + + + | Home Phone [...] + + + | Author | [facility] | + + + | Organization | [facility] | + + + | [...] Team Providers + +------+ + | Care Warp Changer Name | Role | Phone | + [...] | | | Reconstructive | Velma Whitfield [place], | | | | | Services at [facility] | [place] [address] | | | | | [address] | [phone] | | | | | Mailcode: [address] | | | | | | [facility] | | | | | | and Healing, | | | | | | Building | | | | | | [place], [place] | | | | | | [address] | | | | | | [phone] | | | +--------+ + + + [...]
--- OUTSIDE RECORDS SUMMARY | ~2019-07-09 | XMS | Encounter Summary ---
Demographics + + + | Address | [address] | | | [place] [address] | + + + | Home Phone [...] Team Providers + +------+ + | Care Spa Experience Coordinator Name | Role | Phone | [...] & | Diagnoses | Degeest, | [facility] Onc | | | | Gynecology | Pelvic mass | MD Miguel | [address] | | | | | Procedures | [address] | [address] | | | | | REQUEST TO | [address] | [place] | | | | | SURGERY | [address] | [address] | | | | | PRODUCTION FINISHER | [place], [place] | floor | | | | | [place] | [address] | [place], [place] | | | | | EXPLORATORY | Phone: | [address] | | | | | OF ABDOMEN | [phone] | Phone: | | | | | [place] [facility] | Fax: | [phone] | | | | | OVAR | [phone] | Fax: | | | | | MALIG+JAKE+PE | | [phone] | | | | | LV NODES [...] & | Diagnoses | Non-[facility] | [facility] Utilities Manager Onc | | | | Gynecology | Complex | Epic Dept | [address] | | | | | Cystic Mass, | | [address] | | | | | elevated | | [place] | | | | | [address] per | | Pavilion, [address]th | | | | | appt notes | | floor | | | | | | | [place], [place] | | | | | | | [address] | | | | | | | Phone: | | | | | | | [phone] | | | | | | | Fax: | | | | | | | [phone] | +--------+--------+ + + + + Encounter Details +--------+---------+ + + + | Date | Type | Department | Care Team | Description | +--------+---------+ + + + | 05/28/ | Office | [facility] | iMguel Seymour, | Preoperative testing | | 2015 | Visit | [facility] | [address] | (Primary Dx); | | | | [address] | [address] | Pelvic mass | | | | [address] | [place], [place] | | | | | [address] floor | [address] | | | | | [place], [place] | [phone] | | | | | [address] | | | | | | [phone] | | | +--------+---------+ + + + [...] might be diff erent from the original. MANAGER PORTABLE ONCOLOGY RETURN VISIT 05/28/2014 Referring provider: Valeriy [...] [facility] | [address] | [place] [address] | | | SAM ALONSO | NEAL [...] + + + | [facility] | [address] | [place] [address] | | | SERVICES, SAM | NEAL [...] | | | LABORATORY | | | BOLIVIAN | | | SERVICES, | | | [...] | + + + + + | [facility] | [address] | [place] [address] | | | GAVIN, SAM | NEAL [...]
--- OUTSIDE RECORDS SUMMARY | ~2019-07-09 | XMS | Clinical Summary ---
Demographics + + + | Address | [address] | | | [place] [address] | + + + | Home Phone | | + + + | Preferred Language | Unknown | + + + | Marital Status | Unknown | + + + | Mormonism Affiliation | Unknown | + + + | Race | Unknown | + + + | Ethnic Group | Unknown | + + + Author + + + | Author | [facility] (Historical as of | | | 09-30-18) | + + + | Organization | [facility] (Historical as of | | | 09-30-18) | + + + | Address | Unknown | + + + | Phone | Unavailable | + + + Support + + + + + | Name | Relationship | Address | Phone | + + + + + | Poncho Oquendo | [place] | [address] | | | | | [place], [place] | | | | | [address] | | + + + + + Care Team Providers + +------+ + | Care Specialty Cook Name | Role | Phone | + +------+ + | None, Per Pt | PP | [phone] | + +------+ + Allergies + + + + + + | Active Allergy | Reactions | Severity | Noted | Comments | | | | | Date | | + + + + + + | Sulfacetamide | Hives | High | 05/21/19 | | | | | | 17 | | + + + + + + Current Medications + + +-------+---------+------+------+-------+ | Prescription | Sig. | Disp. | Refills | Star | End | Statu | | | | | | t | Date | s | | | | | | Date | | | + + +-------+---------+------+------+-------+ | fentaNYL 37.5 | Place onto the | | | | | Activ | | MCG/HR PT72 | skin. | | | | | e | + + +-------+---------+------+------+-------+ | Hydromorphone HCl | | | 0 | 05/0 | | Activ | | 1 MG/ML LIQD | | | | 3/20 | | e | | | | | | 19 | | | + + +-------+---------+------+------+-------+ | LORazepam (ATIVAN) | take 1 to 2 tablets | | 0 | 05/1 | | Activ | | 1 MG tablet | by mouth at bedtime | | | 7/20 | | e | | | if needed for sleep | | | 19 | | | | | or 1 ... (REFER TO | | | | | | | | PRESCRIPTION NOTES). | | | | | | + + +-------+---------+------+------+-------+ | magnesium oxide | Take 1 tablet by | | 0 | 05/16 | | Activ | | (MAG-OX) 400 MG | mouth daily. | | | 08/03 | | e | | tablet | | | | 19 | | | + + +-------+---------+------+------+-------+ Active Problems + + + | Problem | Noted Date | + + + | Other hydronephrosis | 06/08/2018 | + + + | Biliary tract cancer (HCC) | 06/08/2018 | + + + Immunizations + + + + | Name | Dates Previously Given | Next Due | + + + + | INFLUENZA PF, | 12/27/2017 | | | QUADRIVALENT | | | | (PED/ADOL/ADULT) | | | + + + + | Pneumococcal | 12/10/2002 | | | Polysaccharide | | | | 23-valent | | | + + + + | Tdap | 02/04/2011 | | + + + + Family History + + +------+ + | Medical History | Relation | Name | Comments | + + +------+ + | Malig hypertherm | Neg Hx | | | + + +------+ + Social History + +-------+ +--------+ + | Tobacco Use | Types | Packs/Day | Years | Date | | | | | Used | | + +-------+ +--------+ + | Former Smoker | | | | Quit: 2007 | + +-------+ +--------+ + + +---+---+---+ | Smokeless Tobacco: | | | | | Never Used | | | | + +---+---+---+ + + +---------+ + | Alcohol Use | Drinks/We | oz/Week | Comments | | | ek | | | + + +---------+ + | No | | | | + + +---------+ + + + + | Sex Assigned at | Date Recorded | | | | + + + | Not on file | | + + + Last Filed Vital Signs + + + + | Vital Sign | Reading | Time Taken | + + + + | Blood Pressure | 107/54 | 07/05/2018 3:30 PM PDT | + + + + | Pulse | 83 | 07/05/2018 3:15 PM PDT | + + + + | Temperature | 36.4 C (97.6 F) | 07/05/2018 2:28 PM PDT | + + + + | Respiratory Rate | 16 | 07/05/2018 3:00 PM PDT | + + + + | Oxygen Saturation | 99% | 07/05/2018 3:15 PM PDT | + + + + | Inhaled Oxygen | - | - | | Concentration | | | + + + + | Weight | 62.6 kg (138 lb 0.1 | 07/05/2018 1:29 PM PDT | | | oz) | | + + + + | Height | 160 cm (5' 3") | 07/05/2018 1:29 PM PDT | + + + + | Body Mass Index | 24.45 | 07/05/2018 1:29 PM PDT | + + + + Plan of Treatment + + + + + | Health Maintenance | Due Date | Last Done | Comments | + + + + + | Cervical Cancer | | | | | Screening (Pap) | 2 | | | + + + + + | Vaccine: | | 12/10/2002 | | | Pneumococcal 19- | 4 | | | | Highest Risk (2 of 3 | | | | | - PCV13) | | | | + + + + + | Breast Cancer | | | | | Screening | 2 | | | | (Mammogram) | | | | + + + + + | Colon Cancer | | | | | Screening | 2 | | | | (Colonoscopy) | | | | + + + + + | Vaccine: Zoster (1 | | | | | of 2) | 2 | | | + + + + + | Vaccine: Influenza | | 12/27/2017 | | | (Season Ended) | 0 | | | + + + + + | Vaccine: | | 02/04/2011 | | | Dtap/Tdap/Td (2 - | 1 | | | | Td) | | | | + + + + + Implants + +------+--------+ +--------+--------+--------+ | Implanted | Type | Area | Manufacture | Device | Expira | Model | | | | | r | | tion | / | | | | | | Identi | Date | Serial | | | | | | fier | | / Lot | + +------+--------+ +--------+--------+--------+ | Stent Uro Unvrs Frm [id number] 24cm | | Left: | COOK | | 11/12/ | [id number] | | - SnaImplanted: Qty: 1 on | | Ureter | [employer] | | 2019 | /NA | | 07/05/2018 by Pedro Green | | | - ROBERT | | | /[id number] | | W, DO | | | | | | 79 | + +------+--------+ +--------+--------+--------+ Results Not on filefrom Last 3 Months Insurance + +--------+ +------+-------+---------+ | Payer | Benefi | Subscriber | Type | Phone | Address | | | t Plan | ID | | | | | | / | | | | | | | Group | | | | | + +--------+ +------+-------+---------+ | [employer] | BLUE | [id number] | | | | | | CROSS | | | | | | | BLUE | | | | | | | SHIELD | | | | | | | FEP | | | | | + +--------+ +------+-------+---------+ | /[employer] | YELLOW | [id number] | | | | | PLANS | [place] | | | | | + +--------+ +------+-------+---------+ + +--------+ +--------+ + + | Guarantor Name | Accoun | Relation to | Date | Phone | Billing Address | | | t Type | Patient | of | | | | | | | | | | + +--------+ +--------+ + + | AURA CORBIN | Person | Self [birth year] | Home: | [address] | | | al/Fam | | 2 | [phone] | [place] [address] | | | jose alejandro | | | [phone] | | + +--------+ +--------+ + +
--- OUTSIDE RECORDS SUMMARY | ~2019-07-09 | XMS | Encounter Summary ---
Demographics + + + | Address | [address] | | | [place] [address] | + + + | Home Phone | | + + + | Preferred Language | Unknown | + + + | Marital Status | | + + + | Orthodoxy Affiliation | Unknown | + + + | Race | Unknown | + + + | Ethnic Group | Unknown | + + + Author + + + | Author | and [facility] | | | and [place] | + + + | Organization | and [facility] | | | and [place] | + + + | Address | Unknown | + + + | Phone | Unavailable | + + + Support + + + + + | Name | Relationship | Address | Phone | + + + + + | Poncho Oquendo | ECON | [address] | | | | | [place] | | | | | [address] | | + + + + + | Marta Upton | ECON | [place] | | | | | [address] | | + + + + + Care Team Providers + +------+ + | 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 | Role | Phone | + [...] | | Personal | Reinaldo, | [address] | | | | | 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, | [place], | | | | | 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 [address] | [place] [address] | | | | | neoplasm of | [address] | Phone: | | | | | other site | [place], | [phone] | | | | | in | [place] [address] | Fax: | | | | | gastrointest | Phone: | [phone] | | | | | inal tract | [phone] | | | | | | Procedures | Fax: | | | | | | CT Abdomen | [phone] | | | | | | Pelvis [...] | | | | | (HCC) | [place] | [address] [place] | | | | | Procedures | [address] | [place] | | | | | [place] OFFICE | Phone: | [phone] Phone: | | | | | OUTPATIENT | [phone] | [phone] | | | | | VISIT 25 | Fax: | Fax: | | | | | MINUTES | [phone] | [phone] | +--------+--------+ + + + + Encounter Details +--------+ + + + + | Date | Type | Department | Care Team | Description | +--------+ + + + + | 03/18/ | Hospital | [facility] | Reinaldo, | Personal history of | | 2015 | Encounter | [facility] | Epifanio Soler MD [address] | malignant neoplasm | | | | [facility] [address] | [address] [place] | of other site in | | | | [address] | [place] [address] | gastrointestinal | | | | [place] [address] | [phone] | tract (Primary Dx); | | | | [phone] | | Obesity; Liver | | | | | | enzyme elevation; | | | | | | Ovarian cyst | +--------+ + + + + Social [...] + + + | Blood Pressure | 116/65 | 03/18/2014 1:24 PM | | | | | PST | | + + + + + | Pulse | 94 | 03/18/2014 1:24 PM | | | | | PST | | + + + + + | Temperature | 36.9 C (98.4 F) | 03/18/2014 1:24 PM | | | | | PST | | + + + + + | Respiratory Rate | 16 | 03/18/2014 1:24 PM | | | | | PST | | + + + + + | Oxygen Saturation | 97% | 03/18/2014 1:24 PM | | | | | PST | | + + + + + | Inhaled Oxygen | - | - | | | Concentration | | | | + + + + + | Weight | 84.3 kg (185 lb 13.6 | 03/18/2014 1:24 PM | | | | oz) | PST | | + + + + + | Height | 162 cm (5' 3.78") | 03/18/2014 1:24 PM | | | | | PST | | + + + + + | Body Mass Index | 32.12 | 03/18/2014 1:24 PM | | | [...] encounter Progress Notes Epifanio Najera MD - 03/18/2014 1:34 PM PSTFormatting of this note might be differe nt from the original. IDENTIFYING STATEMENT: Aura Upton is a 53-year-old woman from [place], [place] who h as 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 Tai Stanton of the [facility] April 28, 2012. ACTIVE DIAGNOSES: 1. Presentation with biliary colic in March of 2012 status post cholecystectomy and live r biopsy by Dr. Brandon Garcia March 29, 2012, pathological specimen [id number], analyzed by Dr. Bowers of [facility] and was notable for a poorly-differentiated adenoca rcinoma of the gallbladder. Liver biopsy demonstrated mild portal inflammation. 2. On April 28, 2012, she successfully underwent an R0 resection by Dr. Tai Stanton at [facility], pathological specimen [id number] was notable for the absence of any residual carcinoma within the gallbladder bed. However, 2/8 regional ly mph nodes contained regionally metastatic disease. 3. Consultation by Dr. Elva Grey of the [facility] on May returned the recommendation for adjuvant chemoradiation therapy following [id number] as follows: Capecitabine at 750 mg/m sq twice daily days 1 through 14 given concurrently with Gemcitabine 1000 mg/m sq on day 1, day 8. Cycle length is 21 days. The prescription is for four cycles to be followed by capecitabine at 665 mg/m sq twice d aily given concurrently with radiation therapy. CHIEF COMPLAINT: Aura Upton returned to clinic on March 18, 2014 for followup two years after being diagnosed with stage IIIA cholangiocarcinoma. REVIEW OF SYSTEMS: Constitutional: Reports that she still has a tendency to tire easily. Reports that she had the full blown flu for about 7 days and just finished an Rx of Augmentin for this. States t hat she did run a fever with this. Denies shaking chills, anorexia, nausea, vomiting. Sligh t weight loss noted today. Reports that she [...] lab. She did have a CT done today. She does verbalize the persistent pain in the right mid quadrant of her abdomen today. She also expresses concern s about her memory issues. No past medical history on file. No [...] as needed. fish oil 1,000 mg capsule (Taking) Take 1,000 mg by mouth Daily. HYDROcodone-acetaminophen (VICODIN) 5-500 mg per tablet (Taking) Take 1 tablet by mouth e very 4 hours as needed. MULTIPLE VITAMIN PO (Taking) Take by mouth Daily. Probiotic Product (PROBIOTIC DAILY PO) (Taking) Take by mouth Daily. ALLERGIES: No known drug allergies. PHYSICAL EXAMINATION: BP 116/65 | Pulse 94 | Temp 36.9 C (98.4 F) (Oral) | Resp 16 | Ht 1.62 m (5' 3.78") | Wt 84.3 kg (185 lb 13.6 oz) | BMI 32.12 kg/m2 | SpO2 97% EYES: Conjunctivae clear. Sclerae anicteric. ENMT: Oropharynx [...] for AURA UPTON ( ) as of 03/18/2014 18:37 Ref. Range 03/18/2014 11:04 WBC Latest Range: 4.0-11.0 K/uL 9.6 RBC: Latest Range: 3.70-5.20 M/uL 4.94 Hgb Latest Range: 11.5-16.0 g/dL 14.8 Hct, Final Latest Range: 34.0-47.0 % 44.3 MCV Latest Range: 83.0-101.0 fL 89.7 MCH Latest Range: 28.0-35.0 pg 29.9 MCHC Latest Range: 32.0-36.0 g/dL 33.4 RDW Latest Range: <15.0 % 12.6 Platelet Count Latest Range: 140-440 K/uL 246 MPV No range found 7.5 Absolute Neutrophils Latest Range: 1.80-8.50 K/uL 6.80 Absolute Lymphocytes Latest Range: 0.60-3.20 K/uL 1.90 Absolute Monocytes Latest Range: 0.00-1.00 K/uL 0.60 Absolute Eosinophils Latest Range: 0.00-0.40 K/uL 0.30 Absolute Basophils Latest Range: 0.00-0.10 K/uL 0.10 % Neutrophils Latest Range: 45.0-82.0 % 70.9 % Lymphocytes Latest Range: 20.0-45.0 % 19.6 (L) % Monocytes Latest Range: 4.0-12.0 % 5.9 % Eosinophils Latest Range: 0.0-5.0 % 3.0 % Basophils Latest Range: 0.0-1.0 % 0.6 NA Latest Range: 136-149 mmol/L 134 (L) K Latest Range: 3.5-5.1 mmol/L 4.0 CL Latest Range: 98-109 mmol/L 103 CO2 Latest Range: 24-31 mmol/L 27 ANION GAP Latest Range: 3-16 mmol/L 4 GLUCOSE Latest Range: 70-109 mg/dL 96 BUN Latest Range: 7-18 mg/dL 8 BUN/CREA No range found 11.3 CREA Latest Range: 0.60-1.30 mg/dL 0.71 ALBUMIN Latest Range: 3.2-5.0 g/dL 3.8 Albumin/Globulin ratio No range found 1.2 Total protein Latest Range: 6.0-7.8 g/dL 6.9 EGFR IF NOT Latest Range: >=60 mL/min/1.73m2 >60 Calcium Latest Range: 8.3-10.5 mg/dL 8.7 ALK PHOS Latest Range: 40-110 U/L 181 (H) ALT Latest Range: 6-45 U/L 70 (H) AST Latest Range: 10-42 U/L 60 (H) LD TOTAL Latest Range: 91-180 U/L 165 BILIRUBIN TOTAL Latest Range: 0.1-1.5 mg/dL 0.7 GLOBULIN No range found 3.1 CEA Latest Range: 0.0-10.0 ng/mL 0.5 Results for AURA UPTON ( ) as of 03/19/2014 09:41 Ref. Range 09/25/2013 11:05 03/18/2014 11:04 CA 19-9 (REF) Latest Range: 0 - 37 U/mL 8 12 IMAGING: EXAM: CT ABDOMEN PELVIS W CONTRAST dated 03/18/2014 11:51 AM HISTORY:surveillence cholangiocarcinoma Comparison: Compared to September 25, 2013 and March 19, 2013 CT abdomen and pelvis examinations. TECHNIQUE: Imaging is performed from the lung bases through the pubic symphysis following the uneventful intravenous administration of 100 mL Omnipaque 350. DOSE: DLP 777.47 mGy-cm FINDINGS: LUNG BASES: Left-sided fat-containing diaphragmatic hernia. This is unchanged. The lung bases are otherwise clear. LIVER: Postsurgical changes throughout the gallbladder fossa. The liver is otherwise unremarkable. GALLBLADDER: The gallbladder is surgically absent. The intrahepatic and extrahepatic biliary ducts are appropriate given the postsurgical state. SPLEEN: The spleen is unremarkable. There is no splenomegaly. The spleen contains one calcification indicating prior granulomatous disease. PANCREAS: The pancreas is small but otherwise unremarkable. No dilatation of the pancreatic duct. ADRENALS: There may have been partial right adrenalectomy. No left adrenal nodules. KIDNEYS: The kidneys are symmetrically enhancing. There are no focal renal lesions. There is no nephrolithiasis. There is no obstructive uropathy. BOWEL: There is no evidence for gastrointestinal tract obstruction. There is no evidence for appendicitis. There is diverticulosis which predominates in the sigmoid colon. There is no evidence for active diverticulitis. VASCULATURE AND LYMPH NODES: No aneurysmal dilatation of the abdominal aorta. No abdominal or pelvic lymphadenopathy. BLADDER: Unremarkable. UTERUS AND ADNEXA:The uterus and adnexa are unremarkable. There is a probable follicle in the left ovary. This is a new development. Please correlate with the patient's menstrual status. BONES: There are no acute osseous abnormalities. There are no lytic or blastic bone lesions. OTHER: There is a small amount of free fluid dependently in the pelvis. There is no free air. IMPRESSION - Probable follicle newly developed, in the left ovary. Small volume of pleural fluid in the pelvis. Both of these may be physiologic if this patient is not postmenopausal. Please correlate with patient's menstrual status. ASSESSMENT: Aura continues to have good quality of life and no definative evidence of r ecurrence of her cholangiocarcinoma 2 years after resection and subsequently followed by adj uvant chemotherapy and radiation therapy. Minor elevation of liver enzymes and follicle on l eft ovary are of uncertain significance but warrant ongoing observation. PLAN: Continue with observation. Return to clinic in 6 months for clinical, laboratory, and advanced imaging followup. documented in this encounter Plan of Treatment +--------+---------+ + + + | Date | Type | Specialty | Care Team | Description | +--------+---------+ + + + | 09/17/ | Office | Urology | Pedro Green, | | | 2019 | Visit | | DO [address] | | | | | | [place] [address] | | | | | | [phone] | | | | | | | | +--------+---------+ + + + documented as of this encounter Procedures + +--------+ + + + | Procedure Name | Priori | Date/Time | Associated Diagnosis | Comments | | | ty | | | | + +--------+ + + + | CBC W/AUTO | STAT | 03/18/2014 | Personal history | Results for this | | DIFFERENTIAL | | 11:04 AM | of 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procedure are in the | | | | PST | neoplasm of other | results section. | | | | | site in | | | | | | gastrointestinal | | | | | | tract | | + +--------+ + + + | CA 19-9, QUANT | STAT | 03/18/2014 | Personal history | Results for this | | | | 11:04 AM | of 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procedure are in the | | | | PST | neoplasm of other | results section. | | | | | site in | | | | | | gastrointestinal | | | | | | tract | | + +--------+ + + + | LACTATE | STAT | 03/18/2014 | Personal history | Results for this | | DEHYDROGENASE | | 11:04 AM | of 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procedure are in the | | | | PST | neoplasm of other | results section. | | | | | site in | | | | | | gastrointestinal | | | | | | tract | | + +--------+ + + + | CEA | STAT | 03/18/2014 | Personal history | Results for this | | | | 11:04 AM | of 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procedure are in the | | | | PST | neoplasm of other | results section. | | | | | site in | | | | | | gastrointestinal | | | | | | tract | | + +--------+ + + + | COMPREHENSIVE | STAT | 03/18/2014 | Personal history | Results for this | | METABOLIC PANEL | | 11:04 AM | of 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procedure are in the | | | | PST | neoplasm of other | results section. | | | | | site in | | | | | | gastrointestinal | | | | | | tract | | + +--------+ + + + documented in this encounter Results CT Abdomen Pelvis w Contrast (09/16/2014 12:18 PM PDT) + + | Specimen | + + | | + + + + + | Narrative | Performed At | + + + | ENHANCED CT ABDOMEN AND PELVIS 09/16/2014 12:10 PM CLINICAL | [facility] | | HISTORY: cholangiocarcinoma COMPARISON: CT chest, | | | abdomen and pelvis May 22 and multiple previous CTs TECHNIQUE: | | | Axial images are performed through the abdomen and pelvis following | | | the uneventful intravenous administration of 90 mL Omnipaque 350 | | | contrast. Oral contrast is also administered. Coronal and | | | sagittal reformations are also performed. ABDOMEN FINDINGS: A | | | fat-containing Bochdalek type diaphragmatic hernia is again noted at | | | the posterior left lung base. Imaged lung bases and mediastinum are | | | otherwise unremarkable. There are similar postoperative changes | | | inferiorly in the central liver extending to the gallbladder fossa | | | and estevan hepatis, with surgical clips again extending along the main | | | portal vein and course of the common bile duct. The gallbladder is | | | absent. No hepatic parenchymal abnormality is evident and the | | | portal and hepatic veins remain widely patent. No biliary ductal | | | dilation is present. A solitary calcification consistent with a | | | granuloma persists in the spleen. The pancreas, adrenal glands and | | | the kidneys are unremarkable. There is no hydronephrosis. There | | | is left colonic diverticulosis, without evidence of diverticulitis. | | | A moderate volume of stool is present throughout the colon, without | | | evidence of bowel obstruction. Oral contrast has reached the | | | ascending colon at the time the exam. The stomach, bowel and | | | appendix are otherwise unremarkable. No free air, free fluid, | | | pathologic lymph node enlargement or hernia is evident. A healing | | | appearing ventral, midline abdominal wall incision is now present. | | | There is scattered aortoiliac calcification. Lumbar facet | | | hypertrophy is present. No lytic or blastic bone lesion is | | | identified. PELVIS FINDINGS: The uterus and ovaries are now | | | absent. No residual/recurrent adnexal mass is apparent. The | | | bladder is unremarkable. Rounded calcifications in the deep pelvic | | | cavity are consistent with phleboliths. No free air, free fluid, | | | pathologic lymph node enlargement or hernia is evident. The bones | | | and soft tissues are unremarkable, without evidence of lytic or | | | blastic lesion. IMPRESSION - 1. STABLE POSTOPERATIVE CHANGES | | | INVOLVING THE CENTRAL LIVER, WITHOUT EVIDENCE OF RECURRENT | | | MALIGNANCY. 2. INTERVAL HYSTERECTOMY AND OOPHORECTOMY COMPARED | | | WITH CT OF MAY 22 WITHOUT EVIDENCE OF RESIDUAL OR RECURRENT ADNEXAL | | | MASS OR OTHER SUSPICIOUS FINDING. 3. MODERATE COLONIC STOOL | | | RETENTION AND COLONIC DIVERTICULOSIS WITHOUT EVIDENCE OF BOWEL | | | OBSTRUCTION OR DIVERTICULITIS. Dictated and Signed by: Axel | | | MD Santosh Electronically signed: 09/16/2014 3:59 PM | | + + + + + | Procedure Note | + + | Edmundo, Rad Results In - 09/16/2014 4:02 [address] ABDOMEN AND PELVIS | | 09/16/2014 12:10 PM CLINICAL HISTORY: cholangiocarcinoma COMPARISON: CT chest, | | abdomen and pelvis May 22 and multiple previous CTs TECHNIQUE: Axial images are | | performed through the abdomen and pelvis followingthe uneventful intravenous | | administration of 90 mL Omnipaque 350 contrast. Oralcontrast is also administered. | | Coronal and sagittal reformations are alsoperformed. ABDOMEN FINDINGS: A | | fat-containing Bochdalek type diaphragmatic hernia is againnoted at the posterior left | | lung base. Imaged lung bases and mediastinum areotherwise unremarkable. There are | | similar postoperative changes inferiorly inthe central liver extending to the | | gallbladder fossa and estevan hepatis, withsurgical clips again extending along the main | | portal vein and course of thecommon bile duct. The gallbladder is absent. No hepatic | | parenchymalabnormality is evident and the portal and hepatic veins remain widely patent. | | No biliary ductal dilation is present. A solitary calcification consistent witha | | granuloma persists in the spleen. The pancreas, adrenal glands and thekidneys are | | unremarkable. There is no hydronephrosis. There is left colonicdiverticulosis, without | | evidence of diverticulitis. A moderate volume of stoolis present throughout the colon, | | without evidence of bowel obstruction. Oralcontrast has reached the ascending colon at | | the time the exam. The stomach,bowel and appendix are otherwise unremarkable. No free | | air, free fluid,pathologic lymph node enlargement or hernia is evident. A healing | | appearingventral, midline abdominal wall incision is now present. There is | | scatteredaortoiliac calcification. Lumbar facet hypertrophy is present. No lytic | | orblastic bone lesion is identified. PELVIS FINDINGS: The uterus and ovaries are now | | absent. No residual/recurrentadnexal mass is apparent. The bladder is unremarkable. | | Rounded calcificationsin the deep pelvic cavity are consistent with phleboliths. No | | free air, freefluid, pathologic lymph node enlargement or hernia is evident. The bones | | andsoft tissues are unremarkable, without evidence of lytic or blastic lesion. | | IMPRESSION - 1. STABLE POSTOPERATIVE CHANGES INVOLVING THE CENTRAL LIVER, WITHOUT | | EVIDENCEOF RECURRENT MALIGNANCY.2. INTERVAL HYSTERECTOMY AND OOPHORECTOMY COMPARED WITH | | CT OF MAY 22 WITHOUTEVIDENCE OF RESIDUAL OR RECURRENT ADNEXAL MASS OR OTHER SUSPICIOUS | | FINDING.3. MODERATE COLONIC STOOL RETENTION AND COLONIC DIVERTICULOSIS WITHOUT | | EVIDENCEOF BOWEL OBSTRUCTION OR DIVERTICULITIS.Dictated and Signed by: Axel Frost MD | | Electronically signed: 09/16/2014 3:59 PM | |in the deep pelvic cavity are consistent with phleboliths. No free air, free | |fluid, pathologic lymph node enlargement or hernia is evident. The bones and | |soft tissues are unremarkable, without evidence of lytic or blastic lesion. | | | |IMPRESSION - | |1. STABLE POSTOPERATIVE CHANGES INVOLVING THE CENTRAL LIVER, WITHOUT EVIDENCE | |OF RECURRENT MALIGNANCY. | | | |2. INTERVAL HYSTERECTOMY AND OOPHORECTOMY COMPARED WITH CT OF MAY 22 WITHOUT | |EVIDENCE OF RESIDUAL OR RECURRENT ADNEXAL MASS OR OTHER SUSPICIOUS FINDING. | | | |3. MODERATE COLONIC STOOL RETENTION AND COLONIC DIVERTICULOSIS WITHOUT EVIDENCE | |OF BOWEL OBSTRUCTION OR DIVERTICULITIS. | | | |Dictated and Signed by: Axel Frost MD | | Electronically signed: 09/16/2014 3:59 PM | + + + +---------+ + + | Performing | Address | City/State/Zipcode | Phone Number | | Organization | | | | + +---------+ + + | [facility] | | | | + +---------+ + + [place] 125, Quant (09/16/2014 11:18 AM PDT) + +-------+ + + + | Component | Value | Ref Range | Performed | Pathologist | | | | | At | Signature | + +-------+ + + + | Cancer | 23 | 0 - 35 U/mL | [facility] [...] [address] | [place] | [phone] | | [facility] | | [address] | | | - LABORATORY | | | | + + + + + Hepatitis Panel, Acute (09/16/2014 11:18 AM PDT) + + + + + + | Component | Value | Ref Range | Performed | Pathologist | | | | | At | Signature | + + + + + + | Hepatitis A | Non Reactive | NR | REFERENCE | | | Ab IgM | | | [facility] | | + + + + + + | Hepatitis B | Non Reactive | NR | REFERENCE | | | Surface Ag | | | [facility] | | + + + + + + | Hepatitis B | Non Reactive | NR | REFERENCE | | | Core Ab | | | [facility] | | | IgM | | | | | + + + + + + | Hepatitis C | See CommentsComment: Non | NR | REFERENCE | | | Ab | ReactiveHepatitis C: | | [facility] | | | | Absence of antibody | | | | | | suggests no past | | | | | | Hepatitis C | | | | | | virusinfection. Since | | | | | | antibody development may | | | | | | be delayed up to 6 | | | | | | monthsafter infection, | | | | | | retesting may be | | | | | | indicated. | | | | + + + + + + | Hepatitis | See CommentsComment: No | | REFERENCE | | | Interpretat | serologic evidence of | | [facility] | | | ion: | HAV, HBV or HCV | | | | | | infection.Testing | | | | | | Performed: [place], [address] | | | | | | [address], [place] | | | | | | [address] | | | | + + + [...] [address] | [place] [address] | [phone] | + + + + + CA 19-9, Quant (09/16/2014 11:18 AM PDT) + + + + + [...] Dr, | | | | | | [place] [address] | | | | + + + [...] [address] | [place] [address] | [phone] | + + + + + CEA (09/16/2014 11:18 AM PDT) + +-------+ + + + [...] [address] | [place] | [phone] | | [facility] | | [address] | | | - LABORATORY | | | | + + + + + Lactate Dehydrogenase (09/16/2014 11:18 AM PDT) + +-------+ + + + | Component | Value | Ref Range | Performed | Pathologist | | | | | At | Signature | + +-------+ + + + | LDH TOTAL | 160 | 91 - 180 U/L | [facility] [...] | [address] | [place] | [phone] | | [facility] | | [address] | | | - LABORATORY | | | | + + + + + Comprehensive Metabolic Panel (09/16/2014 11:18 AM PDT) + + + + + [...] Cl | 102 | 98 - 109 mmol/L | [facility] | [facility] | [facility] | | | | | | [facility] | | | | | | [facility] - | | | | | | LABORATORY | | + + + + + + | CO2 | 29 | 24 - 31 mmol/L | [facility] [...] + + + + | Glucose | 95 | 70 - 109 mg/dL | [facility] [...] + + + + | Creatinine | 0.70 | 0.60 - 1.30 | [facility] | [...] | mL/min/1.73m2 | [facility] | | | [facility] | RATE,ESTIMATED | | MEDICAL | | | | mL/min/1.43i3Jbnx than | | CENTER - | | [...] 3.7 | 3.2 - 5.0 g/dL | [facility] [...] + + + + | ALT | 34 | 6 - 45 U/L | [facility] | | | | | | [facility] | | | | | | [facility] | | | | | | CENTER - | | | | | | LABORATORY | | + + + + + + | Alkaline | 164 (H) | 40 - 110 U/L | [facility] | | | Phosphatase | | | [facility] | | | | | | [facility]ICAL | | | | | | CENTER - | | | | | | LABORATORY | | + + + + + + | Globulin | 3.0 | g/dL | [facility] | | | [...] + + | BUN/Creatin | 14.3 | | [facility] | | | ine [...] ST. | [address] | [place] | [phone] | | [facility] | | [address] | | | - LABORATORY | | | | + + + + + CBC with Differential (09/16/2014 11:18 AM PDT) + +--------+ + + + | Component | Value | Ref Range | Performed | Pathologist | | | | | At | Signature | + +--------+ + + + | WBC | 5.6 | 4.0 - 11.0 K/uL | [facility] | | | | | | [facility] | | | | | | [facility] | | | | | | CENTER - | | | | | | LABORATORY | | + +--------+ + + + | RBC | 4.28 | 3.70 - 5.20 | [facility] | | | | | M/uL | [facility] | | | | | | [facility] | | | | | | CENTER - | | | | | | LABORATORY | | + +--------+ + + + | Hemoglobin | 12.4 | 11.5 - 16.0 | [facility] | | | | | g/dL | [facility] | | | | | | [facility] | | | | | | CENTER - | | | | | | LABORATORY | | + +--------+ + + + | Hematocrit | 37.8 | 34.0 - 47.0 % | [facility] | | | | | | [facility] | | | | | | [facility] | | | | | | CENTER - | | | | | | LABORATORY | | + +--------+ + + + | MCV | 88.2 | 83.0 - 101.0 fL | [facility] | | | | | | [facility] | | | | | | [facility] | | | | | | [facility] - | | | | | | LABORATORY | | + +--------+ + + + | MCH | 29.0 | 28.0 - 35.0 pg | [facility] | | | | | | [facility] | | | | | | [facility] | | | | | | CENTER - | | | | | | LABORATORY | | + +--------+ + + + | MCHC | 32.9 | 32.0 - 36.0 | [facility] | | | | | g/dL | [facility] | | | | | | [facility] | | | | | | CENTER - | | | | | | LABORATORY | | + +--------+ + + + | RDW-CV | 14.2 | <15.0 % | [facility] | | | | | | [facility] | | | | | | [facility] | | | | | | CENTER - | | | | | | LABORATORY | | + +--------+ + + + | Platelet | 48 (L) | 140 - 440 K/uL | [facility] | | | Count | | | [facility] | | | | | | MEDICAL | | | | | | CENTER - | | | | | | LABORATORY | | + +--------+ + + + | MPV | 7.8 | fL | [facility] | | | | | | [facility] | | | | | | [facility] | | | | | | CENTER - | | | | | | LABORATORY | | + +--------+ + + + | % | 61.6 | 45.0 - 82.0 % | [facility] | | | Neutrophils | | | [facility] [facility] | | | [facility] - | | | | | | LABORATORY | | + +--------+ + + + | % | 29.6 | 20.0 - 45.0 % | [facility] | | | Lymphocytes | | | [facility] | | [facility] | [facility] - | | | | | | LABORATORY | | + +--------+ + + + | % Monocytes | 5.7 | 4.0 - 12.0 % | [facility] | | | | | | [facility] | | [facility] - | | | | | | LABORATORY | | + +--------+ + + + | % | 2.6 | 0.0 - 5.0 % | [facility] | | | Eosinophils | | | [facility] | [facility] | | [facility] - | | | | | | LABORATORY | | + +--------+ + + + | % Basophils | 0.5 | 0.0 - 1.0 % | [facility] | | | | | | [facility] | [facility] - | | | | | | LABORATORY | | + +--------+ + + + | Absolute | 3.40 | 1.80 - 8.50 | [facility] | | | Neutrophils | | K/uL | [facility] | | [facility] | | | | | | [facility] - | | | | | | LABORATORY | | + +--------+ + + + | Absolute | 1.70 | 0.60 - 3.20 | [facility] | | | Lymphocytes | | K/uL | [facility] | | [facility] | | [facility] - | | | | | | LABORATORY | | + +--------+ + + + | Absolute | 0.30 | 0.00 - 1.00 | [facility] | | | Monocytes | | K/uL | [facility] | [facility] | | | | [facility] - | | | | | | LABORATORY | | + +--------+ + + + | Absolute | 0.10 | 0.00 - 0.40 | [facility] | | | Eosinophils | | K/uL | [facility] | | [facility] | | | | | | [facility] - | | | | | | LABORATORY | | + +--------+ + + + | Absolute | 0.00 | 0.00 - 0.10 | [facility] | | | Basophils | | K/uL | [facility] | [facility] | | | | | | CENTER - | | | | | | LABORATORY | | + +--------+ + + + + + | Specimen | + + | Blood - Vein sample | | (specimen) | + + + + + + + | Performing | Address | City/State/Zipcode | Phone Number | | Organization | | | | + + + + + | [facility] | [address] | [place] | [phone] | | [facility] | | [address] | | | - LABORATORY | | | | + + + + + Lactate Dehydrogenase (03/18/2014 11:04 AM PST) + +-------+ + + + | Component | Value | Ref Range | Performed | Pathologist | | | | | At | Signature | + +-------+ + + + | LDH TOTAL | 165 | 91 - 180 U/L | [facility] | | | | | [...] + | [facility] | [address] | [place] | [phone] | | [facility] | | [address] | | | - LABORATORY | | | | + + + + + | [facility] | [address] | [place], [place] | | | [facility] | | [address], [facility] | | | - LABORATORY [...] | | | | | mg/dL | [facility] | | | | | | MEDICAL | | | | | | CENTER - | | | | | | LABORATORY | | + + + + + + | eGFR if not | >60Comment: GLOMERULAR | >=60 | [facility] | | | | FILTRATION | mL/min/1.73m2 | [facility] | | | DOMINICAN | RATE,ESTIMATED | | MEDICAL | | | | mL/min/1.70t4Ctnx than | | CENTER - | | [...] | | | | | mg/dL | [facility] | | | | | [...] + | [facility] | [address] | [place], [place] | [phone] | | [facility] | | [address] | | | - LABORATORY | | | | + + + + + | [facility] | [address] | [place] | | | [facility] | | [id number] | | | - LABORATORY | [...] + | [facility] | [address] | [place] | [phone] | | [facility] | | [address] | | | - LABORATORY | | | | + + + + + | [facility] | [address] | [place] | | | [facility] | | [id number] | | | - LABORATORY | [...] + | [facility] | [address] | [place] | [phone] | | [facility] | | [address] | | | - LABORATORY | | | | + + + + + | [facility] | [address] | [place], [place] | | | [facility] | | [address] | | | - LABORATORY | | | | + + + + + CA 19-9, Quant (03/18/2014 11:04 [...] | | | | | | [place] [address] | | | | + + + [...] [address] | [place] [address] | [phone] | + + + + + documented in this encounter Visit Diagnoses + + | Diagnosis | + + | Personal history of malignant neoplasm of other site in gastrointestinal tract - | | Primary | + + | Obesity Obesity, unspecified | + + | Liver enzyme elevation Nonspecific elevation of levels of transaminase or lactic acid | | dehydrogenase (LDH) | + + | Ovarian cyst Other and unspecified ovarian cyst | + + documented in this encounter
--- OUTSIDE RECORDS SUMMARY | ~2019-07-09 | XMS | Encounter Summary ---
Demographics + + + | Address | [address] | | | [place] [address] | + + + | Home Phone [...] Team Providers + +------+ + | Care Tree Warden Name | Role | Phone | + [...] | | | | | Procedures | [place], [place] | | | | | CONSULT TO | [address] | [address] | | | | | ENT / FACIAL | Phone: | Phone: | | | | | PLASTIC | [phone] | [phone] | | | | | SURGERY | Fax: | Fax: | | | | | | [phone] | [phone] | +--------+--------+ + + + + Reason [...] | y | | Epic Dept | [facility] [address] | | | | [address] | | | | | | | Mailcode: | | | | | | | [address] Center | | | | | | | for Health | | | | | | | and Healing, | | | | | | | Building 1, | | | | | | | 5th Floor | | | | | | | [place], [place] | | | | | | | [address] | | | | | | | Phone: | | | | | | | [phone] | | | | | | | Fax: | | | | | | | [phone] | +--------+--------+ + + + + Encounter Details +--------+---------+ + + + | Date | Type | Department | Care Team | Description | +--------+---------+ + + + | 12/27/ | Office | [facility] | Aamir Lau, | Nasal Septal Defect | | 2007 | Visit | Center at [facility] [address] | [address] | (Primary Dx); | | | | [address] | [place], [place] | Chronic Ethmoidal | | | | Mailcode: CH5E | [address] | Sinusitis; Other | | | | [facility] | [phone] | Diseases of Nasal | | | | and Healing, | | Cavity and Sinuses | | | | Building 1, 5th | | | | | | Floor [place], [place] | | | | | | [address] | | | | | | [phone] | | | +--------+---------+ + + + [...] as of this encounter Progress Aamir Martinez - 12/28/2007 12:39 PM PSTI personally interviewed the patient, duplicated the pertinent parts of the physical examination and procedure and personally formulated the plan. I have reviewed, entered my findings, and agree with the above documentation. Aamir Lau M.D., M.P.H., F.A.C.S. Director, [facility] Professor and Chief, Rhinology and Sinus Surgery Department of Otolaryngology/Head and Neck Surgery Lloyd Jain Md - 11:36 AM PSTHPI: 47 yo F here to discuss septal perforation. She gives a 5 year hi story of chronic sinus symptoms including nasal obstrutctioin, facial pain/pressure, and nicol quent infections. She was treated with one month of avelox and prednisone before undergoing ESS and septoplasty by Dr. Benedict in [place]. She reports a prolonged recovery with sign [...] Rfl: No Known Allergies. Social HX: Lives [place], [place] No ETOH, No tobacc (quit several [...] septal button. documented in this encou nter Plan of Treatment + + +--------+ + + | Name | Type | Priori | Associated Diagnoses | Order Schedule | | | | ty | | | + + +--------+ + + | [place] [facility] | Procedures | Routin | Chronic [...]
--- OUTSIDE RECORDS SUMMARY | ~2019-07-09 | XMS | Encounter Summary ---
Demographics + + + | Address | [address] | | | [place] [address] | + + + | Home Phone [...] Author | [facility] | | | and [place] | + + + | Organization | [facility] | | | and [place] | + + + | Address | Unknown | + + + | Phone | Unavailable | + + + Support + + + + + | Name | Relationship | Address | Phone | + + + + + | Poncho Oquendo | ECON | [address] | | | | | [place] | | | | | [address] | | + + + + + | Marta Upton | ECON | [place] | | | | | [address] | | + + + + + Care Team Providers + +------+ + | Care Retort Setter Name | Role | Phone | + +------+ + | Valeriy Carmona DO | PCP | | + +------+ + Encounter Details +--------+ + + + + | Date | Type | Department | Care Team | Description | +--------+ + + + + | 08/27/ | Hospital | [facility] | Valeriy Carmona, | Breast nodule | | 2016 | Encounter | MED CTR ULTRASOUND | DO [address] | | | | | [address] | [place] [address] | | | | | [place] | [phone] | | | | | [address] | | | | | | [phone] | Vee Rebolledo | | | | | | A, Technologist | | | | | | [place] | | | | | | [address] | | +--------+ + + + + [...] [address] | | | | | | [place] [address] | | | | | | [phone] | | | | | | | | +--------+---------+ + + + documented as of this encounter Procedures + +--------+ + + + | Procedure Name | Priori | Date/Time | Associated Diagnosis | Comments | | | ty | | | | + +--------+ + + + | US BREAST LIMITED | Routin | 08/28/2015 | Breast nodule | Results for this | | RIGHT | e | 1:49 PM | | procedure are in the | | | | PDT | | results section. | + +--------+ + + + documented in this encounter Results US Breast Limited Right (08/28/2015 1:49 PM PDT) + + | Specimen | [...]
--- OUTSIDE RECORDS SUMMARY | ~2019-07-09 | XMS | Encounter Summary ---
Demographics + + + | Address | [address] | | | [place] [address] | + + + | Home Phone | | + + + | Preferred Language | Unknown | + + + | Marital Status | | + + + | Pentecostal Affiliation | Unknown | + + + | Race | Unknown | + + + | Ethnic Group | Unknown | + + + Author + + + | Author | [facility] | | | and [place]ardo[place] | + + + | Organization | [facility] | | | and [place] | + + + | Address | Unknown | + + + | Phone | Unavailable | + + + Support + + + + + | Name | Relationship | Address | Phone | + + + + + | Poncho Oquendo | ECON | [address] | | | | | [place] | | | | | [address] | | + + + + + | Marta Upton | ECON | [place] | | | | | [address] | | + + + + + Care Team Providers + +------+ + | Care Investor Relations Specialist Name | Role | Phone | [...] + + | 07/03/ | Telephone | [facility] | Reinaldo, | Medication Question | | 2019 | | MED CTR MEDICAL | Epifanio Soler MD [address] | | | | | [facility] [facility] | [facility] | | | | | [facility] | [place] [address] | | | | | [place] [address] | [phone] | | | | | [phone] | | | +--------+ + + + [...] [address] | | | | | | [place] [address] | | | | | | [phone] | | | | | | | | +--------+---------+ + + + documented as of this encounter Visit Diagnoses Not on filedocumented in this encounter"
--- OUTSIDE RECORDS SUMMARY | ~2019-07-09 | XMS | Encounter Summary ---
Demographics + + + | Address | [address] | | | [place] [address] | + + + | Home Phone [...] Author | [facility] | | | and [place]ardo[place] | + + + | Organization | [facility] | | | and [place] | + + + | Address | Unknown | + + + | Phone | Unavailable | + + + Support + + + + + | Name | Relationship | Address | Phone | + + + + + | Poncho Oquendo | ECON | [address] | | | | | [place] | | | | | [address] | | + + + + + | Marta Upton | ECON | [place] | | | | | [address] | | + + + + + Care Team Providers + +------+ + | Care Telecommunication Lines Repairer Name | Role | Phone | + +------+ + | Valeriy Carmona DO | PCP | | + +------+ + Encounter Details +--------+ + + + + | Date | Type | Department | Care Team | Description | +--------+ + + + + | 07/05/ | Hospital | [facility] | Pedro Green, | | | 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 | [facility] | DO [address] | | | | | [address] | [place] [address] | | | | | [place], [place] | [phone] | | | | | [address] | | | | | | [phone] | | | +--------+ + + + [...] (none) Author Type: Registered Nurse Filed: 07/05/18 7737 Date of Service: 07/05/181540 Status: Signed Fringing Machine Operator: Erika Lorenzana, RN (Registered Nurse) Discharge instructions, [...] TAI | | | | | | [place] [address] | | | | | | [phone] | | | | | | | [...]
--- OUTSIDE RECORDS SUMMARY | ~2019-07-09 | XMS | Encounter Summary ---
Demographics + + + | Address | [address] | | | [place] [address] | + + + | Home Phone | | + + + | Preferred Language | Unknown | + + + | Marital Status | | + + + | Jainism Affiliation | Unknown | + + + | Race | Unknown | + + + | Ethnic Group | Unknown | + + + Author + + + | Author | [facility] | | | and [place]ardo[place] | + + + | Organization | [facility] | | | and [place]ardo[place] | + + + | Address | Unknown | + + + | Phone | Unavailable | + + + Support + + + + + | Name | Relationship | Address | Phone | + + + + + | Poncho Oquendo | ECON | [address] | | | | | [facility] [place] | | | | | [address] | | + + + + + | Marta Upton | ECON | [place], [place] | | | | | [address] | | + + + + + Care Team Providers + +------+ + | Care Respiratory Therapist Name | Role | Phone | + +------+ + | No, Physician | PCP | Unavailable | + +------+ + Encounter Details +--------+ + + + + | Date | Type | Department | Care Team | Description | +--------+ + + + + | 09/17/ | Hospital | [facility] | | | | 2013 | Encounter | MED CTR XRAY [address] | | | | | | [place] | | | | | | [place] [address] | | | | | | [phone] | | | +--------+ + + + [...] | | | | | [place] [address] | | | | | | [phone] | | | | | | | | +--------+---------+ + + + documented as of this encounter Visit Diagnoses Not on filedocumented in this encounter"
--- OUTSIDE RECORDS SUMMARY | ~2019-07-09 | XMS | Encounter Summary ---
Demographics + + + | Address | [address] | | | [place] [address] | + + + | Home Phone [...] + + + | Author | [facility] | + + + | Organization | [facility] | + + + | [...] Providers + +------+ + | Care Construction Skills Teacher Name | Role | Phone | [...] | | | | | Procedures | [place], [place] | [place], [place] | | | | | CONSULT TO | [address] | [address] | | | | | ENT / FACIAL | Phone: | Phone: | | | | | PLASTIC | [phone] | [phone] | | | | | SURGERY | Fax: | Fax: | | | | | | [phone] | [phone] | +--------+--------+ + + + + Encounter Details +--------+---------+ + + + | Date | Type | Department | Care Team | Description | +--------+---------+ + + + | 06/03/ | Office | Otolaryngology | Virgilio Buck MD | Perforation of Nasal | | 2008 | Visit | Facial Plastics & | [address] | Septum; Nasal | | | | Reconstructive | [place], | Septal Defect | | | | Services at [facility] | [place] [address] | | | | | [address] | [phone] | | | | | Mailcode: KAREEN | | | | | | [facility] | | | | | | and Healing, | | | | | | Building 1, 5th | | | | | | Floor [place], [place] | | | | | | [address] | | | | | | [phone] | | | +--------+---------+ + + + [...] today. Photos obtained. She met with my mine administrator supervisor maximo hirsch. Followup arranged for preop. Time spent with patient /family, reviewing studies/ recor ds 20 minutes, with >50 % of time spent in consultation and coordination of care. Virgilio Buck MD FACS Professor Facial Plastic and Reconstructive Surgery Dept. of Otolaryngology/Head and Neck Surgery [facility] tel fax email [email or web address] documented in this encounte r Plan of [...]
--- OUTSIDE RECORDS SUMMARY | ~2019-07-09 | XMS | Encounter Summary ---
Demographics + + + | Address | [address] | | | [place] [address] | + + + | Home Phone | | + + + | Preferred Language | Unknown | + + + | Marital Status | | + + + | Baptism Affiliation | Unknown | + + + | Race | Unknown | + + + | Ethnic Group | Unknown | + + + Author + + + | Author | [facility] | | | and Eduardo[place] | + + + | Organization | [facility] | | | and Eduardo[place] | + + + | Address | Unknown | + + + | Phone | Unavailable | + + + Support + + + + + | Name | Relationship | Address | Phone | + + + + + | Poncho Oquendo | ECON | [address] | | | | | [place] | | | | | [address] | | + + + + + | Marta Upton | ECON | [place] | | | | | [address] | | + + + + + [...] | | | [facility]OGY CLIN[facility] [address] | [facility] | | | | | [facility] | [place] [address] | | | | | [place] [address] | [phone] | | | | | [phone] | | | +--------+ + + + [...] | | | | | | [facility] [place] [address] | | | | | | [phone] | | | | | | | | +--------+---------+ + + + documented as of this encounter Visit Diagnoses Not on filedocumented in this encounter"
--- OUTSIDE RECORDS SUMMARY | ~2019-07-09 | XMS | Encounter Summary ---
Demographics + + + | Address | [address] | | | [place] [address] | + + + | Home Phone [...] Team Providers + +------+ + | Care Linen Clerk Name | Role | Phone | + +------+ + PCP | Unavailable | + +------+ + Encounter Details +--------+ + + + + | Date | Type | Department | Care Team | Description | +--------+ + + + + | 04/11/ | Abstract | Digestive Health | Tai Stanton, | | | 2012 | | [place] at [facility] [address] | [address] | | | | | [address] | [address] | | | | | Mailcode: [place] | [place], [place] | | | | | for Health and | [address] | | | | | [place] [address] | [phone] | | | | | [place], [place] | | | | | | [address] | | | | | | [phone] | | | +--------+ + + + [...]
--- OUTSIDE RECORDS SUMMARY | ~2019-07-09 | XMS | Encounter Summary ---
Demographics + + + | Address | [address] | | | [place] [address] | + + + | Home Phone | | + + + | Preferred Language | Unknown | + + + | Marital Status | | + + + | Islam Affiliation | Unknown | + + + | Race | Unknown | + + + | Ethnic Group | Unknown | + + + Author + + + | Author | [facility] | | | and Eduardo[place] | + + + | Organization | [facility] | | | and [place] | + + + | Address | Unknown | + + + | Phone | Unavailable | + + + Support + + + + + | Name | Relationship | Address | Phone | + + + + + | Poncho Oquendo | ECON | [address] | | | | | [facility] [place] | | | | | [address] | | + + + + + | Marta Upton | ECON | [place], [place] | | | | | [address] | | + + + + + Care Team Providers + +------+ + | Care Consulting Intern Name | Role | Phone | + +------+ + | No, Physician | PCP | Unavailable | + +------+ + Encounter Details +--------+ + + + + | Date | Type | Department | Care Team | Description | +--------+ + + + + | 04/26/ | Hospital | [facility] | Pedro Green, | | | 2019 | Encounter | REGIONAL SURGERY | DO [address] | | | | | CENTER INTRA OP | [place] [address] | | | | | [address] | [phone] | | | | | [place], [place] | | | | | | [address] | | | | | | [phone] | | | +--------+ + + + [...] [address] | | | | | | [place] [address] | | | | | | [phone] | | | | | | | [...] + + documented in this encounter Results STORED IMAGE UROLOGY (04/27/2019 10:26 AM PDT) [...]
--- OUTSIDE RECORDS SUMMARY | ~2019-07-09 | XMS | Encounter Summary ---
Demographics + + + | Address | [address] | | | [place] [address] | + + + | Home Phone | | + + + | Preferred Language | Unknown | + + + | Marital Status | | + + + | Nondenominational Affiliation | Unknown | + + + | Race | Unknown | + + + | Ethnic Group | Unknown | + + + Author + + + | Author | [facility] | | | and [place]ardo[place] | + + + | Organization | [facility] | | | and [place] | + + + | Address | Unknown | + + + | Phone | Unavailable | + + + Support + + + + + | Name | Relationship | Address | Phone | + + + + + | Poncho Oquendo | ECON | [address] | | | | | [facility] [place] | | | | | [address] | | + + + + + | Marta Upton | ECON | [place] | | | | | [address] | | + + + + + Care Team Providers + +------+ + | Care Laborer [place] Name | Role | Phone | + [...] | | renal and | OBED, | [place], [place] | | | | | ureteral | [place] | [address] Phone: | | | | | calculous | [address] | [phone] | | | | | obstruction | Phone: | Fax: | | | | | | [phone] | [phone] | | | | | | Fax: | | | | | | | [phone] | | +--------+--------+ + + + + Encounter Details +--------+---------+ + + + | Date | Type | Department | Care Team | Description | +--------+---------+ + + + | 11/21/ | Office | [facility] | Pedro Green, | Cholangiocarcinoma | | 2019 | Visit | UROLOGY [address] | DO [address] | (HCC) (Primary Dx); | | | | [address] | [place] [address] | Obstruction of left | | | | [place], [place] | [phone] | ureter | | | | [address] | | | | | | [phone] | | | +--------+---------+ + + + [...] encounter Patient Instructions Patient Instructions Kalina Hughes, Leather Grader - 11/21/2018 10:30 AM PDTPLAN IMAGING NEED [...] Per Admission Appointment to assure your safety [facility] anesthesia and surgery. Location: [facility] ([address] [place] [address]) Time: The day before surgery someone from the hospital will call you to give you your arriv al time. Be advised, they will call you in the late afternoon or early evening. Please do not contact our office to find out your time of arrival. IF YOU HAVE A CLINICAL BIOCHEMIST You MUST receive a cardiac clearance from your body straightener prior to surgery. A pre-admission (registration) appointment [...] IT OFF OR FAX IT TO US ([phone]) AT LEAST 2 WEEKS PRIOR TO SURGERY. MAKE SURE TO IN CLUDE TIME OFF NEEDED/WHEN YOU PLAN TO RETURN TO WORK. documented in this encounter Progress Notes Pedro Green DO - 11/21/2018 10:30 AM PDTFormatting of this note might be different fr om the original. [facility] Urology Primary Care Provider: No Physician on [...] well. Her last excha nge was at [facility] during a septic episode. 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
--- OUTSIDE RECORDS SUMMARY | ~2019-07-09 | XMS | Encounter Summary ---
Demographics + + + | Address | [address] | | | [place] [address] | + + + | Home Phone [...] Author | [facility] | | | and Eduardoana | + + + | Organization | [facility] | | | and Eduardoana | + + + | Address | Unknown | + + + | Phone | Unavailable | + + + Support + + + + + | Name | Relationship | Address | Phone | + + + + + | Poncho Oquendo | ECON | [address] | | | | | [place] | | | | | [address] | | + + + + + | Marta Upton | ECON | [place] | | | | | [address] | | + + + + + Care Team Providers + +------+ + | Care Icing Machine Operator Name | Role | Phone [...] | | | | | Procedures | [id number] | VANESSA CASTELLANOS | | | | | [place] OFFICE | Phone: | [phone] Phone: | | | | | OUTPATIENT | [phone] | [phone] | | | | | VISIT 25 | Fax: | Fax: | | | | | MINUTES | [phone] | [phone] | +--------+--------+ + + + + Encounter Details +--------+ + + + + | Date | Type | Department | Care Team | Description | +--------+ + + + + | 10/31/ | Hospital | [facility] | [facility], | Gallbladder cancer, | | 2015 | Encounter | [facility] | Chad Soler MD [address] | carcinoma (HCC) | | | | [facility]OG[facility] CLIN[facility] [address] | (Primary Dx); | | | | [facility] | [place] [address] | Neoplasm related | | | | [place] [address] | [phone] | pain (acute) | | | | [phone] | | (chronic) | +--------+ + + + + Social [...] + + + | Blood Pressure | 111/70 | 10/31/2014 9:02 AM | | | | | PDT | | + + + + + | Pulse | 86 | 10/31/2014 9:02 AM | | | | | PDT | | + + + + + | Temperature | 37 C (98.6 F) | 10/31/2014 9:02 AM | | | | | PDT | | + + + + + | Respiratory Rate | 16 | 10/31/2014 9:02 AM | | | | | PDT | | + + + + + | Oxygen Saturation | 99% | 10/31/2014 9:02 AM | | | | | PDT | | + + + + + | Inhaled Oxygen | - | - | | | Concentration | | | | + + + + + | Weight | 83.5 kg (184 lb 1.4 | 10/31/2014 9:02 AM | | | | oz) | PDT | | + + + + + | Height | 162 cm (5' 3.78") | 10/31/2014 9:02 AM | | | [...] encounter Progress Notes Chad Riggins MD - 10/31/2014 9:08 AM PDTFormatting of this note might be differe nt from the original. Hematology/Oncology Progress Note [facility] Pt. Name/Age/: Aura Upton 53 y.o. 1960 Med. Record Number: [id number] Date of admission: 10/31/2014 Identifying Statement: Aura Upton is a 53 y.o. female from [address] [place] [address] with Recurrent Cholangiocarcinoma. The patient chart and medications were reviewed in detail and the patient was seen and exam ined. History of Present Illnesses, their Current Assessments and Plans: Problems That Were Updated This Visit Gallbladder cancer, carcinoma Overview ACTIVE DIAGNOSES: Recurrent cholangiocarcinoma. 1. Presentation with biliary colic in March of 2012; status post cholecystectomy and hailee er biopsy by Dr. Brandon Garcai March 29, 2012, pathological specimen [id number], analyzed by Dr. Bowers of [facility] and was notable for a poorly-differentiated adenoc arcinoma of the gallbladder. Liver biopsy demonstrated mild portal inflammation. 2. On April 28, 2012, she successfully underwent an R0 resection by Dr. Tai Stanton at [facility], pathological specimen [id number] was notable for the absence of any residual carcinoma within the gallbladder bed. However, 2/8 regional lym ph nodes contained regionally metastatic disease. 3. Consultation by Dr. Elva Grey of the [facility] on May returned the recommendation for adjuvant chemoradiation therapy following [id number] as follows: Capecitabine at 750 mg/m sq [...] staging by Dr. Oziel Casillas of the [facility]. Pathological analysis was notable for [...] 7. Consultation with Dr. Elva Grey the [facility] in June 26, 2014 who recommended additional chemotherapy was cisplatin at 75 mg meter squared on day 1 a nd gemcitabine 1250 mg per meter squared on day one and day 8 of acute 21 day cycle for 6-8 cycles. A second opinion was obtained by Dr. Richie Thayer of the [facility] iance who returned the recommendation for [...] the recommendations of Dr. Richie Thayerof the [facility] with gemcitabine at 1000 mg per meter squared on day one and day 8 wi th cisplatin 25 mg meter squared on day one and day 8 of a Q 21 day cycle beginning on July 26, 2014 complicated by grade 3 neutropenia and grade [address]. [address] scan of the chest, abdomen and pelvis that [facility] on September 16, 2014 demonstrated no radiographic evidence of disease. Current Assessment & Plan Domo returned to clinic with her mother to initiate cycle #5 of cisplatin/gemcitabine for recurrent cholangiocarcinoma. 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 Previous analysis at [facility] in [place] confirmed adeq uate iron stores. A request for HIGINIO therapy was denied by her insurance provider. Plan; Initiate Cycle #5 Cis/gemcitabine for recurrent cholangiocarcioma. Treatment will be continued in [place] next week. Repeat imaging after Cycle#6 and if favorable, cross over to observation. Neoplasm related pain (acute) (chronic) Overview Pain due to recurrent cholangiocarcinoma. Current Assessment & Plan Patients with terminal and malignant pain will be exempt from the requirement for a writt en pain management agreement/narcotic contract. [[facility] Provider Maldonado ndbook of Operational Guidelines (2015), fourth edition, page 45]. Review of Systems: Constitutional: Reports that she is struggling with a lot of fatigue. Denies fever or alex ing chills. Denies anorexia, nausea, vomiting. No weight loss noted today. Denies night s weats. Ear, Nose, Mouth, Throat: Denies odynophagia, dysphagia. Reports chronic tinnitus and state s it has gotten worse since starting on the Cisplatin. Cardiovascular: Denies shortness of breath except with exertion. Denies chest pain, palpit ations or orthopnea. Respiratory: Denies cough, hemoptysis, or sputum production. Gastrointestinal: Reports that every once in awhile she gets pain in the area of radiation and also in her incisional area. Denies constipation, diarrhea, melena, or bright red blood per rectum. Genitourinary: Denies hematuria or dysuria. Musculoskeletal: Reports that she continues to struggle with right knee pain and also has l ow back and posterior neck pain. Neurologic: Reports that she gets occasional headaches. States that she has really signifi cant memory issues and has to work really hard to remember things. Denies visual changes or numbness/tingling of the extremities. Endocrine: Denies peripheral edema or heat/cold intolerance. Hematologic: Denies spontaneous bruising or bleeding. Reports that she is bruising easily. Integumentary: Denies rash, wounds or other skin concerns. Pain: Reports that she has 3/10 pain in low back and neck. She uses the Hydrocodone prn fo r this pain. Note:Here today for followup, lab and chemo. Reports that she is wondering is she is anemi c because her fatigue is very brutal. Review of systems as above otherwise negative [...] has been changed since signin [facility] [place] amitriptyline (ELAVIL) 10 mg tablet (Taking) Take 10 mg by mouth nightly. dexamethasone (DECADRON) 4 mg tablet (Taking) Take one tablet PO as directed. Number of times this order has been changed since signin [facility] [place] docusate calcium (SURFAK) 240 mg capsule (Taking) Take 240 mg by mouth as needed. Number of times this order has been changed since signin [facility] [place] fish oil 1,000 mg capsule (Taking) Take 1,000 mg by mouth Daily. Number of times this order has been changed since signin [facility] [place] HYDROcodone-acetaminophen (VICODIN) 5-500 mg per tablet (Taking) Take 1 tablet by mouth e very 4 hours as needed. Number of times this order has been changed since signin [facility] [place] MULTIPLE VITAMIN PO (Taking) Take by mouth Daily. Number of times this order has been changed since signin [facility] [place] ondansetron (ZOFRAN ODT) 8 mg disintegrating tablet (Taking) Take 8 mg by mouth every 8 h ours as needed for Nausea. Probiotic Product (PROBIOTIC DAILY PO) (Taking) Take by mouth Daily. Number of times this order has been changed since signin [facility] [place] Allergy: Allergies Allergen Reactions Sulfa Antibiotics Objectives: Temp: 37 C (98.6 F) BP: 111/70 mmHg Pulse: 86 Resp: 16 SpO2: 99 % on Min/Max Temp past 24 hours:Temp Av C (98.6 F) Min: 37 C (98.6 F) Max: 37 C (98.6 F) No intake or output data in the 24 hours ending 10/31/14 8768 Wt. Admission: Weight: 83.5 kg (184 lb 1.4 oz) Wt. Current: Weight: 83.5 kg (184 lb 1.4 oz) Wt Readings from Last 3 Encounters: 10/31/14 83.5 kg (184 lb 1.4 oz) 09/16/14 79.4 kg (175 lb 0.7 oz) 03/18/14 84.3 kg (185 lb 13.6 oz) Physical Exam: Exam: General: The patient is alert and oriented. No acute distress. Eyes: Conjunctiva clear. Sclera anicteric. ENMT: Oropharynx fee of lesions, mucous membranes moist. Cardiovascular: Regular rate and rhythm, no rubs, gallops, or murmurs. Respiratory: Clear to auscultation and percussion. Chest: Left anterior chest Port-A-Cath was accessed with a Andrade needle and a brisk blood return was documented. Extremities: Nontender, no erythema, no edema. Skin: [...] Golden Gonzalez., Rodger Bro., Steven Figueroa., Birdie Burns., Avery, TLuis Eduardo., [...] for [facility] ( ) as of 10/31/2014 19:17 Ref. Range 10/31/2014 08:36 WBC Latest Range: 4.0-11.0 K/uL 2.6 (L) WBC morphology No range found Normal RBC: Latest Range: 3.70-5.20 M/uL 2.93 (L) Hgb Latest Range: 11.5-16.0 g/dL 9.5 (L) Hct, Final Latest Range: 34.0-47.0 % 29.2 (L) MCV Latest Range: 83.0-101.0 fL 99.8 MCH Latest Range: 28.0-35.0 pg 32.6 MCHC Latest Range: 32.0-36.0 g/dL 32.7 RDW-CV Latest Range: <15.0 % 25.6 (H) Platelet Count Latest Range: 140-440 K/uL 94 (L) MPV No range found 8.6 Absolute Neutrophils Latest Range: 1.80-8.50 K/uL 1.10 (L) Absolute Lymphocytes Latest Range: 0.60-3.20 K/uL 1.00 Absolute Monocytes Latest Range: 0.00-1.00 K/uL 0.40 Absolute Eosinophils Latest Range: 0.00-0.40 K/uL 0.00 Absolute Basophils Latest Range: 0.00-0.10 K/uL 0.00 % Neutrophils Latest Range: 45.0-82.0 % 43.3 (L) % Lymphocytes Latest Range: 20.0-45.0 % 38.8 % Monocytes Latest Range: 4.0-12.0 % 15.9 (H) % Eosinophils Latest Range: 0.0-5.0 % 1.2 % Basophils Latest Range: 0.0-1.0 % 0.8 Anisocytosis Latest Range: (none) Moderate (A) HYPOCHROMIA Latest Range: (none) Slight (A) Platelet Estimate Latest Range: Adequate Decreased (A) POLYCHROMASIA Latest Range: (none) Slight (A) NA Latest Range: 136-149 mmol/L 136 K Latest Range: 3.5-5.1 mmol/L 4.4 CL Latest Range: 98-109 mmol/L 104 CO2 Latest Range: 24-31 mmol/L 26 ANION GAP Latest Range: 3-16 mmol/L 6 GLUCOSE Latest Range: 70-109 mg/dL 100 BUN Latest Range: 7-18 mg/dL 9 BUN/CREA No range found 11.8 CREA Latest Range: 0.60-1.30 mg/dL 0.76 ALBUMIN Latest Range: 3.2-5.0 g/dL 3.5 Albumin/Globulin ratio No range found 1.5 Total protein Latest Range: 6.0-7.8 g/dL 5.9 (L) EGFR IF NOT Latest Range: >=60 mL/min/1.73m2 >60 Calcium Latest Range: 8.3-10.5 mg/dL 8.4 ALK PHOS Latest Range: 40-110 U/L 169 (H) ALT (SGPT) (REF) Latest Range: 6-45 U/L 25 AST Latest Range: 10-42 U/L 33 LD TOTAL Latest Range: 91-180 U/L 246 (H) BILIRUBIN TOTAL Latest Range: 0.1-1.5 mg/dL 0.1 GLOBULIN No range found 2.4 CA-125 Latest Range: 0-35 U/mL [address] ABDOMEN AND PELVIS 09/16/2014 12:10 [...] Frost MD Electronically signed: 09/16/2014 3:59 PM Pharmacovigilance: No current IDT available for review Palliative Care: Patient's Medications New Prescriptions HYDROCODONE-ACETAMINOPHEN (NORCO) 7.5-325 MG PER TABLET Take 1 tablet by mouth every 6 hours as needed for Pain for up to 10 days. Modified Medications No medications on file Discontinued Medications No medications on file Procedure: Day 1, Cycle 5 (21-day cycle) Completed; Released on 10/31/2014; Originally planned for Labs CBC with Differential STAT, ONE TIME, Adriana 10/31/14 at 08, For 1 occurrence Order History Comprehensive Metabolic Panel STAT, ONE TIME, Adriana 10/31/14 at 0837, For 1 occurrence Order History Lactate Dehydrogenase STAT, ONE TIME, Adriana 10/31/14 at 0837, For 1 occurrence Order History CA 19-9, Quant STAT, ONE TIME, Adriana 10/31/14 at 0837, For 1 occurrence Order History CA 125, Quant STAT, ONE TIME, Adriana 10/31/14 at 0837, For 1 occurrence Order History Nursing Orders OK to proceed with chemotherapy (Not Released) 10/31/14 -- Note, patient has anemia due to chemotherapy. Iron stores are appropriate for HIGINIO therapy ( contact Gabrielle Bean RN at [facility] or [facility]). Begin procrit today. INFORMED CONSENT: The nature and character of the proposed treatment with Cisplatin and Henry citabine with HIGINIO therapy with Procrit and neupogen and the anticipated results of the propo sed treatment with Cisplatin and Gemcitabine with HIGINIO therapy with Procrit and neupogen;lester gnized alternative forms of treatment, including non-treatment; the risks benefits, and side effects of proposed treatment, alternative treatments and non-treatment were discussed with the patient who consents to proceed with treatment with Cisplatin and Gemcitabine with HIGINIO therapy with Procrit and neupogen. The treating provider has examined the patient and review ed the diagnostic data, including laboratory data, and deems that it is safe and appropriate to proceed with treatment with Cisplatin and Gemcitabine with HIGINIO therapy with Procrit and neupogen. CHAD RIGGINS MD Order History Plans for discharge (Not Released) No extra hydration needed. Schedule neupogen 300 micrograms subcutaneously daily for three days, on day 2,3,4 at [facility]. Gabrielle has the order and has scheduled the pt.- Tell Aura to go in just like she normally does- per Gabrielle. Order History Treatment Decision (Not Released) RN port draw and leave accessed for labs. Verify lab results prior to initiation of chemotherapy. OK to treat if (1) ANC > or = 1500/ uL, (2) platelets > or = 100,000/uL, (3) Hgb > or = 8 g/dL, (4) serum creatinine < 1.5 mg/dL , (5) T bili < or = to 1.5 times the ULN (upper limit of normal), (6) AST and ALT < than 3 t imes ULN, (7) magnesium > 1.2 mg/dL. Contact provider if conditions evaluated in ordered lab s are not met. Order History Pre-Medications ondansetron (ZOFRAN) 8 mg, dexamethasone (DECADRON) 4 mg in sodium chloride 0.9% 50 mL IVPB Intravenous, for 16 Minutes, ONCE, Adriana 10/31/14 at 1015, For 1 dose Administer prior to chemotherapy. Order History diphenhydrAMINE (BENADRYL) injection 25 mg 25 mg, Intravenous, ONCE, Adriana 10/31/14 at 1015, For 1 dose Order History fosaprepitant (EMEND) 150 mg in sodium chloride 0.9% 150 mL IVPB 150 mg, Intravenous, for 20 Minutes, ONCE, Adriana 10/31/14 at 1015, For 1 dose Do not shake bag. Administer prior to chemotherapy. Order History CHEMOTHERAPY epoetin tuyet (EPOGEN, PROCRIT) 40,000 units/mL injection 40,000 Units (Not Released) 40,000 Units, Subcutaneous, ONCE, Starting when released Keep in refrigerator. Do not shake. Order History CISplatin (PLATINOL) 39 mg in sodium chloride 0.9% 500 mL chemo infusion 39 mg (20 mg/m2 1.95 m2 Treatment plan actual BSA), Intravenous, for 1 Hours, ONCE, Th u 10/31/14 at 1045, For 1 dose Chemotherapy: This is a high risk medication. Vesicant. Order History gemcitabine (GEMZAR) 1,560 mg in sodium chloride 0.9% 250 mL chemo infusion 1,560 mg (800 mg/m2 1.95 m2 Treatment plan actual BSA), Intravenous, for 30 Minutes, O NCE, Adriana 10/31/14 at 1245, For 1 dose Chemotherapy: This is a high risk medication. Do not refrigerate. Order History Post-Medications heparin 100 units/mL flush injection 500 Units 500 Units (5 mL), Intercatheter, PRN, Line Care, Starting Adriana 10/31/14 at 0958 Order History PRN Medications LORazepam (ATIVAN) injection 0.5-1 mg (Not Released) 0.5-1 mg (original dose 0.5-1 mg), Intravenous, PRN, Anxiety, Nausea/Vomiting, Starting w hen released, for 1 dose Administer prior to chemotherapy. Order History Infusion Reaction Orders Stop infusion if: (Not Released) Stop infusion if an infusion reaction is suspected (pruritis, flushing, rhinitis, fever, rash, back pain, dyspnea). Notify MD. Order History Check vital signs (Not Released) Check vital signs q5 minutes until back to baseline, then q15 minutes until resolution of symptoms. Order History Start oxygen (Not Released) Start oxygen at 6-8 LPM for O2 <= 90%. Order History diphenhydrAMINE (BENADRYL) injection 25 mg (Not Released) 25 mg, Intravenous, EVERY 15 MIN PRN, Infusion reaction, Starting when released, for 2 do ses Administer as needed for infusion reaction. Order History methylprednisoLONE sodium succinate (solu-MEDROL) 62.5 mg/mL injection 125 mg (Not Rele ased) 125 mg, Intravenous, ONCE PRN, infusion reaction, Starting when released, for 1 dose Administer as needed for infusion reaction. Choose only one steroid. Order History Resume infusion if: (Not Released) Resume infusion when symptoms resolve, as directed by MD. Order History Nursing Orders Anaphylaxis orders (Not Released) Add order group [facility] ANAPHYLAXIS TREATMENT if a severe hypersensitivity reaction or anaphy laxis is suspected (bronchospasm, stridor, wheezing, respiratory depression, cardiac arrhyth sirisha, generalized urticaria, SBP <= 80 mm Hg or 30 mm Hg drop from baseline, angioedema, shoc k, loss of consciousness). Stop infusion, activate code blue and notify MD. Order History CHAD RIGGINS MD Portions of this chart may have been created with e[employer] voice recognition software. Occasi onal wrong-word or [...] 2019 | Visit | | DO [address] [facility] | | | | | | [place] [address] | | | | | | [phone] | | | | | | | | +--------+---------+ + + + documented as of this encounter Visit Diagnoses + + | Diagnosis | + + | Gallbladder cancer, carcinoma (HCC) - Primary Malignant neoplasm of gallbladder | + + | Neoplasm related pain (acute) (chronic) | + + documented in this encounter
--- OUTSIDE RECORDS SUMMARY | ~2019-07-09 | XMS | Encounter Summary ---
Demographics + + + | Address | [address] | | | [place] [address] | + + + | Home Phone | | + + + | Preferred Language | Unknown | + + + | Marital Status | Single | + + + | Jehovah'S Witness Affiliation | NON | + + + [...] Team Providers + +------+ + | Care Frame Polisher Name | Role | Phone | [...] & | Diagnoses | Non-[facility] | [employer] [facility] Lecturer Onc | | | | Gynecology | Complex | Epic Dept | [facility] [address] | | | | | Cystic Mass, | | [address] | | | | | elevated | | [place] | | | | | [address] per | | Pavilion, 7th | | | | | appt notes | | floor | | | | | | | [place], [place] | | | | | | | [address] | | | | | | | Phone: | | | | | | | [phone] | | | | | | | Fax: | | | | | | | [phone] | +--------+--------+ + + + + Encounter Details +--------+---------+ + + + | Date | Type | Department | Care Team | Description | +--------+---------+ + + + | 05/21/ | Office | [facility] | Miguel Seymour, | Ovarian cystic mass | | 2015 | Visit | [facility] | [address] | (Primary Dx); | | | | [address] | [address] | Gallbladder cancer | | | | [address] | [place], [place] | (HCC); Abdominal | | | | Pavilion, 7th floor | [address] | pain, bilateral | | | | [place], [place] | [phone] | upper quadrant; | | | | [address] | | Pelvic mass | | | | [phone] | | | +--------+---------+ + + + [...] note might be different from the [facility] l. 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 Patient seen and discussed with Dr. Kandis [...] + | [facility] - | [address] | [place] [address] | | | [place] | | | | + + + [...] # | | | | | | [id number]. Received 2 | | | | | [...] | + + + + + | [facility] | [address] | [place] [address] | | | PATHOLOGY | [address] [...]
--- OUTSIDE RECORDS SUMMARY | ~2019-07-09 | XMS | Encounter Summary ---
Demographics + + + | Address | [address] | | | [place] [address] | + + + | Home Phone [...] Providers + +------+ + | Care Manager Area Name | Role | Phone | + +------+ + | Tomasa Wagner | PCP | | + +------+ + Reason for Visit + + + | Reason | Comments | + + + | Return Patient | | + + + Global Period - Transplant (Routine) +--------+--------+ + + + + | [...] | | | | | | | Ave | | | | | | | Mailcode: | | | | | | | [facility] | | [facility] | | [facility] | [facility], | | | | | | | Building [address] | | | | | | | [place], [place] | | | | | | | [address] | | | | | | | Phone: | | | | | | | [phone] | | | | | | | Fax: | | | | | | | [phone] | +--------+--------+ + + + + Encounter Details +--------+---------+ + + + | Date | Type | Department | Care Team | Description | +--------+---------+ + + + | 05/31/ | Office | Digestive Health | Tai Stanton, | Encounter for wound | | 2012 | Visit | Center at [facility] [address] | [address] | care (Primary Dx) | | | | Erickson Borges | Surendra Carreon | | | | | Mailcode: [place] | [place], [place] | | | | | [facility] and | [address] | | | | | [facility] | [phone] | | | | | [place], [place] | | | | | | [address] | | | | | | [phone] | | | +--------+---------+ + + + [...] + + + | Blood Pressure | 124/64 | 05/31/2012 2:18 PM | | | | | PDT | | + + + + + | Pulse | 68 | 05/31/2012 2:18 PM | | | | | PDT | | + + + + + | Temperature | 36.7 C (98.1 F) | 05/31/2012 2:18 PM | | | | | PDT | | + + + + + | Respiratory Rate | 16 | 05/31/2012 2:18 PM | | | | | PDT | | + + + + + | Oxygen Saturation | - | - | | + + + + + | Inhaled Oxygen | - | - | | | Concentration | | | | + + + + + | Weight | 77.9 kg (171 lb 12.8 | 05/31/2012 2:18 PM | | | | oz) | PDT | | + + + + + | Height | 160 cm (5' 3") | 05/31/2012 2:18 PM | | | | | PDT | | + + + + + | Body Mass Index | 30.43 | 05/31/2012 2:18 PM | | | | | PDT | | + + + + + documented in this encounter Progress Notes Tai Stanton MD - 06/04/2012 10:54 AM MIRIAMI saw and evaluated the patient. I agree with the findings and the plan of care as documented in the resident s note. Tai Stanton M.D. Formerly [facility] [employer] ([facility]) Professor and Vice-Diesel Lube Tech of Surgery [facility] for Pancreatic Disease Research Pancreatic/ HepatoBiliary and Foregut Working Groups Office email: [email or web address] Rukhsana Land MD - 05/31/2012 2:07 PM PDT [facility] Department of Surgery [facility] Note Author: Rukhsana Tesfaye MD Attending Physician: Tai Stanton MD 05/31/2012 ID: Aura Upton is a 51 y.o. Woman with T2N1M0 gallbladder cancer, s/p R0 resection. Initial resection was on 03/29 and diagnostic laparoscopy with biopsies, intraoperative ultr asound, partial segment 4B and 5 liver resection (gallbladder fossa with en bloc portal lymp hadenectomy)was on 04/29/12. Her post op course has been complicated by a local wound infect ion. History of Present Illness: Aura Upton is a 51 y.o. female patient who presents to [facility] today for follow up for her wound infection. Overall she is doing well. Her pain is we ll controlled with oxycodone (now only taking every 8hours), gabapentin and tylenol. She is slowly weaning herself off oxycodone. At her last visit (05/17) she was noted to have a sero ma. Her has been packing her wound once a day. She has no fevers or chills. The drainage from her seroma has been clear there is has been no erythema. She is being followed by Dr. Grey of oncology with plan for referral to Dr. Ellyn dangelo ear patient's home for adjuvant chemotherapy when appropriate. Review of Systems: A complete review of systems is as per the HPI above, but is otherwise negative. Past Medical History Diagnosis Date Chronic back pain greater than 3 months duration Past Surgical History Procedure Date Tubal ligation 2002 section 1998 Endoscopic sinus surgery 2009 History Substance Use Topics Smoking status: Former Smoker -- 0.5 packs/day for 25 years Types: Cigarettes Quit date: 02/14/2006 Smokeless tobacco: Never Used Alcohol Use: 0.5 oz/week 1 Glasses of wine per week 2-3 glasses of wine per month. Family History Problem Relation Diabetes Father Coronary Artery Disease Father Medications: acetaminophen 500 mg Oral tablet, Take 1 Tab by mouth every four hours as needed for modera te pain. DOCUSATE CALCIUM (STOOL SOFTENER ORAL), Take by mouth. gabapentin 300 mg Oral capsule, Take 1 Cap by mouth three times daily. Indications: POSTOPE RATIVE ACUTE PAIN lidocaine 5 %(700 mg/patch) Topical Adhesive Patch, Medicated, Apply 1 Patch to skin once d aily. Apply patch to most painful area; Patch may remain in place for up to 12 hours in any 24-hour period. lidocaine 5 %(700 mg/patch) Topical Adhesive Patch, Medicated, Apply 1 Patch to skin every twenty-four hours. Apply patch to most painful area; Patch may remain in place for up to 12 hours in any 24-hour period. ondansetron ODT 4 mg Oral tablet,disintegrating, Take 1 Tab by mouth every twelve hours as needed. oxyCODONE, immediate release, 5 mg Oral tablet, Take 1-3 Tabs by mouth every six hours as n eeded for severe pain. oxyCODONE, immediate release, 5 mg Oral tablet, Take 1-4 Tabs by mouth every three hours as needed for severe pain. polyethylene glycol 17 gram/dose Oral Powder, Take 17 g by mouth once daily. senna-docusate 8.6-50 mg Oral tablet, Take 1 Tab by mouth two times daily. Stop taking if h aving loose bowel movements. Indications: CONSTIPATION Allergies: No Known Allergies OBJECTIVE: Vitals: There were no vitals taken for this visit. Physical Exam: General: appears healthy and comfortable Abdomen: Small open area on right side of incision probes to about 3cm in depth straight do wn with no undermining of incision. Incision otherwise well healed, soft, nt abdomen Pathology: Original path: Materials Received: Referring Institution: [facility], [place] [address] Outside Accession Number: [id number] Sample Collection Date: 03/29/2012 Sublabeled H&E IHC A1 to A4 4 10 Final Pathologic Diagnosis: Gallbladder, cholecystectomy: - Poorly differentiated carcinoma with neuroendocrine features (see comment) - Depth of invasion: Extending to the subserosal connective tissue - Extending to within less than 0.1 cm of inked serosal margin - Cystic duct margin negative by report - Extensive angiolymphatic invasion identified - AJCC 7th edition pathologic stage pT2 Nx Final Pathologic Diagnosis: Amendment: The purpose of this amendment is to add more lymph nodes for specimen E. The total number of lymph nodes was changed to 8. The remaining final diagnosis is unchanged. A: Right costal margin, peritoneal lesion, biopsy: [...] with surgical site changes, negative for malignancy ASSESSMENT: Aura Upton is a 51 y.o. female patient with T2N1M0 gallbladder cancer who presents fo r post op wound check s/p diagnostic laparoscopy with biopsies, intraoperative ultrasound, p artial segment 4B and 5 liver resection on 04/29/12. She is recovering well however continue s to have some postop pain (controlled with oxycodone, tylenol, gabapentin and lidocaine pat ches). She has a draining seroma which she packs daily. She is being referred to [facility] near her home with Dr. Najera. PLAN: -Wound opened slightly to allow easier packing for patient and -Continue BID wound packing -Given new scripts for oxycodone (100 tabs, with goal of this being her last refill), gabap entin, senna, and lidocaine patches -Work release for June 19 given -RTC in 3 weeks for wound check Dr. Tai Stanton has seen and examined the patient and agrees with the above plan. Rukhsana Tesfaye MD Surgery, R1 Pager: [phone] documented in this e ncounter Plan of Treatment Not on filedocumented as of this encounter Visit Diagnoses + + | Diagnosis | + + | Encounter for wound care - Primary Encounter for other specified aftercare | + + documented in this encounter
--- OUTSIDE RECORDS SUMMARY | ~2019-07-09 | XMS | Encounter Summary ---
Demographics + + + | Address | [address] | | | [place] [address] | + + + | Home Phone [...] Providers + +------+ + | Care Manager Mountain Name | Role | Phone | + +------+ + | Tomasa Wagner | PCP | | + +------+ + Reason for Visit + + + | Reason | Comments | + + + | Constipation | [place] | + + + Encounter Details +--------+ + + + + | Date | Type | Department | Care Team | Description | +--------+ + + + + | 06/11/ | Telephone | [facility] | [place], | Constipation | | 2015 | | [facility] | [address] | ([place]) | | | | [address] | [facility] | | | | | [address] | [place], [place] | | | | | [facility], [facility] | [address] | | | | | [place], [place] | [phone] | | | | | [address] | | | | | | [phone] | | | +--------+ + + + [...] + | Diagnosis | + + | Nausea - Primary Nausea alone | + + | Pelvic mass Abdominal or pelvic swelling, mass or lump, unspecified site | + + documented in this encounter"
--- OUTSIDE RECORDS SUMMARY | ~2019-07-09 | XMS | Encounter Summary ---
Demographics + + + | Address | [address] | | | [place] [address] | + + + | Home Phone [...] + | Author | [facility] | | | and [place] | + + + | Organization | [facility] | | | and [place] | + + + | Address | Unknown | + + + | Phone | Unavailable | + + + Support + + + + + | Name | Relationship | Address | Phone | + + + + + | Poncho Oquendo | ECON | [address] | | | | | [place] | | | | | [address] | | + + + + + | Marta Upton | ECON | [place] | | | | | [address] | | + + + + + Care Team Providers + +------+ + | Care Real Time Analyst Name | Role | Phone | [...] + + | 05/30/ | Refill | [facility] | Reinaldo, | Medication Refill | | 2019 | | [facility] | Epifanio Soler MD [address] | | | | | [address] | [address] [facility] | | | | | [address] | [place] [address] | | | | | [place] [address] | [phone] | | | | | [phone] | | | +--------+--------+ + + + [...] 2019 | Visit | | DO [address] | | | | | | [place] [address] | | | | | | [phone] | | | | | | | | +--------+---------+ + + + documented as of this encounter Visit Diagnoses + + | Diagnosis | + + | Gallbladder cancer, 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
--- OUTSIDE RECORDS SUMMARY | ~2019-07-09 | XMS | Encounter Summary ---
Demographics + + + | Address | [address] | | | [place] [address] | + + + | Home Phone [...] | Author | [facility] | | | and [place] | + + + | Organization | [facility] | | | and [place] | + + + | Address | Unknown | + + + | Phone | Unavailable | + + + Support + + + + + | Name | Relationship | Address | Phone | + + + + + | Poncho Oquendo | ECON | [address] | | | | | [place] | | | | | [address] | | + + + + + | Marta Upton | ECON | [place] | | | | | [address] | | + + + + + Care Team Providers + +------+ + | Care Oil Truck Driver Name | Role | Phone | + [...] + + | 06/24/ | Telephone | [facility] | Reinaldo, | Other | | 2014 | | [facility] | Epifanio Soler MD [address] | | | | | [address] | [facility] | | | | | [address] [facility] | [place] [address] | | | | | [place] [address] | [phone] | | | | | [phone] | | | +--------+ + + + [...] | | | | | [place] [address] | | | | | | [phone] | | | | | | | | +--------+---------+ + + + documented as of this encounter Visit Diagnoses Not on filedocumented in this encounter"
--- OUTSIDE RECORDS SUMMARY | ~2019-07-09 | XMS | Encounter Summary ---
Demographics + + + | Address | [address] | | | [place] [address] | + + + | Home Phone [...] | Author | [facility] | | | and [place] | + + + | Organization | [facility] | | | and [place] | + + + | Address | Unknown | + + + | Phone | Unavailable | + + + Support + + + + + | Name | Relationship | Address | Phone | + + + + + | Poncho Oquendo | ECON | [address] | | | | | [place] | | | | | [address] | | + + + + + | Marta Upton | ECON | [place] | | | | | [address] | | + + + + + Care Team Providers + +------+ + | Care Rope Machine Setter Name | Role | Phone | + +------+ + | Valeriy Carmona DO | PCP | | + +------+ + Encounter Details +--------+ + + + + | Date | Type | Department | Care Team | Description | +--------+ + + + + | 06/08/ | Documentati | [facility] | Reinaldo, | | | 2018 | on | [facility] | Epifanio Soler MD [address] | | | | | [address] | [address] | | | | | [address] | [place] [address] | | | | | [place] [address] | [phone] | | | | | [phone] | | | +--------+ + + + [...] | | | | | [place] [address] | | | | | | [phone] | | | | | | | | +--------+---------+ + + + documented as of this encounter Visit Diagnoses Not on filedocumented in this encounter"
--- OUTSIDE RECORDS SUMMARY | ~2019-07-09 | XMS | Encounter Summary ---
Demographics + + + | Address | [address] | | | [place] [address] | + + + | Home Phone [...] Team Providers + +------+ + | Care Dairy Tester Name | Role | Phone | [...] + + + + | 04/28/ | Anesthesia | 6A Intra Op [address] | Shari, | | | 2012 | Event | [address] | Khadar Coello MD | | | | | [facility] | Genevieve Acosta, | | | | | Hospital Admitting | | | | | | Desk Located on the | | | | | | 9th floor | | | | | | [place], [place] | | | | | | [address] | | | +--------+ + + + + Anesthesia Record + + + + + | Procedure Name | Responsible | Anesthesia Start | Anesthesia Stop Time | | | Anesthesiologist | Time | | + + + + + | DIAGNOSTIC | Khadar M | 04/28/12 0703 | 04/28/12 1433 | [...] | Meds | +------+ + + + | Name | Total | + + + | midazolam | 2 mg | + + + | fentaNYL | 400 mcg | + + + | propofol | 150 mg | + + + | PHENYLephrine | 400 mcg | + + + | rocuronium | 100 mg | + + + | bupivacaine 0.125% INF | 42.35 mL | + + + | bupivacaine 0.125% | 8 mL | + + + | lidocaine 2% | 60 mg | + + + | ePHEDrine | 5 mg | + + + | nitroGLYCERIN INF (50mg/250mL) | 120 mcg | + + + | HYDROmorphone | 1.5 mg | + + + | glycopyrrolate | 0.55 mg | + + + | neostigmine | 3 mg | + + + | ceFOXitin | 2,000 mg | + + + | LR | 1,500 mL | + + + | NS | 500 mL | + + + + + | Name | + + | Insp Miguel Angel | + + | Et Miguel Angel | + + | Insp Iso | + + | Et Iso | + + | EtN2O % | + + | Insp N2O % | + + | O2 Flow Rate (Total Liters) | + + | Air Flow rate (L/min) | + + + + | No blood administrations on file. | + + +--------+ + + + | Type | Details | Placement | Removal | +--------+ + + + | RETIRE | 04/28/12; 702; 04/28/12; 1035 | 04/28/12702 by | 04/28/12 1035 by | | D - | | Genevieve Acosta, | Genevieve Acosta, | | Periph | | MD | MD | | eral | | | | | Line | | | | +--------+ + + + | RETIRE | 04/28/12; 702; 04/29/12; 0658 | 04/28/12702 by | 04/29/12657 by | | D - | | [...] + | RETIRE | 04/28/12; 0820; 04/29/12; 1330; | 04/28/12 0820 by | 04/29/12 1330 by | | D - | Right; Neck; Jugular | Genevieve Acosta, | Elva Yang RN | | Centra | | MD | | | l Line | | | | +--------+ + + + | RETIRE | 04/28/12; 08; 04/29/12; 1729; | 04/28/12819 by | 04/29/121729 by | | D - | 14; Left; Forearm | Genevieve Acosta, | Linden Yadav RN | | Periph | | MD | | | eral | | | | | Line | | | | +--------+ + + + | RETIRE | 04/28/12; 0821; 04/29/12; 1552; | 04/28/12820 by | 04/29/12 155 by | | D - | 14; Right; Forearm | Genevieve Acosta, | Elva Yang RN | | Periph | | MD | | | eral | | | | | Line | | | | +--------+ + + + | RETIRE | 04/28/12; 0842; 05/01/12; 09; | 04/28/12 08 by | 05/01/12904 by | | D - | No; [...] filedocumented in this encounter Administered Medications + + + + + +------+ | Medication Order | MAR | Action | Dose | Rate | Site | | | Action | Date | | | | + + + + + +------+ | bupivacaine 0.125% INF | Restarte | 04/29/19 | 10 mL/hr | 10 mL/hr | | | INTRAPROCEDURE CONTINUOUS PRN, | d | 13 12:07 | | | | | Starting 04/28/12 at 0921, | | PM PDT | | | | | Until 04/28/12 at 1421 | | | | | | + + + + + +------+ + + + + +---+ | Rate/Dose Change | 04/29/19 | 7 mL/hr | 7 mL/hr | | | | 13 10:46 | | | | | | AM PDT | | | | + + + + +---+ | New Bag | 04/29/19 | 10 mL/hr | 10 mL/hr | | | | 13 9:21 | | | | | | AM PDT | | | | + + + + +---+ +---+---+ | | | +---+---+ + +-------+ +------+---+---+ | bupivacaine 0.125% PF injection | Given | 04/29/19 | 8 mL | | | | INTRAPROCEDURE PRN, Starting | | 13 9:22 | | | | | 04/28/12 at 0922, Until Fri | | AM PDT | | | | | 04/28/12 at 1421 | | | | | | + +-------+ +------+---+---+ +---+---+ | | | +---+---+ + +-------+ + +---+---+ | ceFOXitin (aka MEFOXIN) | Given | 04/29/19 | 1,000 mg | | | | injection intravenous, | | 13 12:57 | | | | | INTRAPROCEDURE PRN, Starting Fri | | PM PDT | | | | | 04/28/12 at 0856, Until Fri | | | | | | | 04/28/12 at 1421 | | | | | | + +-------+ + +---+---+ +-------+ + +---+---+ | Given | 04/29/19 | 1,000 mg | | | | | 13 8:56 | | | | | | AM PDT | | | | +-------+ + +---+---+ +---+---+ | | | +---+---+ + +-------+ +------+---+---+ | ePHEDrine injection | Given | 04/29/19 | 5 mg | | | | intravenous, INTRAPROCEDURE PRN, | | 13 10:32 | | | | | Starting 04/28/12 at 1032, | | AM PDT | | | | | Until 04/28/12 at 1421 | | | | | | + +-------+ +------+---+---+ +---+---+ | | | +---+---+ + +-------+ +--------+---+---+ | fentaNYL citrate (PF) (aka | Given | 04/29/19 | 50 mcg | | | | SUBLIMAZE) injection | | 13 2:27 | | | | | INTRAPROCEDURE PRN, Starting Fri | | PM PDT | | | | | 04/28/12 at 0703, Until Fri | | | | | | | 04/28/12 at 1421, moderate pain | | | | | | + +-------+ +--------+---+---+ +-------+ +--------+---+---+ | Given | 04/29/19 | 50 mcg | | | | | 13 2:03 | | | | | | PM PDT | | | | +-------+ +--------+---+---+ | Given | 04/29/19 | 50 mcg | | | | | 13 11:27 | | | | | | AM PDT | | | | +-------+ +--------+---+---+ +---+---+ | | | +---+---+ + +-------+ +---------+---+---+ | glycopyrrolate (aka ROBINUL) | Given | 04/29/19 | 0.55 mg | | | | injection INTRAPROCEDURE PRN, | | 13 1:43 | | | | | Starting 04/28/12 at 1343, | | PM PDT | | | | | Until 04/28/12 at 1421 | | | | | | + +-------+ +---------+---+---+ +---+---+ | | | +---+---+ + +-------+ +--------+---+---+ | HYDROmorphone (aka DILAUDID) | Given | 04/29/19 | 0.5 mg | | | | injection INTRAPROCEDURE PRN, | | 13 2:27 | | | | | Starting 04/28/12 at 1127, | | PM PDT | | | | | Until 04/28/12 at 1421, | | | | | | | sedation | | | | | | + +-------+ +--------+---+---+ +-------+ +--------+---+---+ | Given | 04/29/19 | 0.5 mg | | | | | 13 1:26 | | | | | | PM PDT | | | | +-------+ +--------+---+---+ | Given | 04/29/19 | 0.5 mg | | | | | 13 11:27 | | | | | | AM PDT | | | | +-------+ +--------+---+---+ +---+---+ | | | +---+---+ + + + +----+---+---+ | lactated ringers IV | given by | 04/29/19 | mL | | | | intravenous, INTRAPROCEDURE | | 13 1:59 | | | | | CONTINUOUS PRN, Starting Fri | anesthes | PM PDT | | | | | 04/28/12 at 0736, Until Fri | iology | | | | | | 04/28/12 at 1421 | | | | | | + + + +----+---+---+ + + +----+---+---+ | given by anesthesiology | 04/29/19 | mL | | | | | 13 10:09 | | | | | | AM PDT | | | | + + +----+---+---+ | New Bag | 04/29/19 | mL | | | | | 13 7:36 | | | | | | AM PDT | | | | + + +----+---+---+ +---+---+ | | | +---+---+ + +-------+ +-------+---+---+ | lidocaine (aka XYLOCAINE MPF) | Given | 04/29/19 | 60 mg | | | | 20 mg/mL (2 %) injection | | 13 7:52 | | | | | INTRAPROCEDURE PRN, Starting Fri | | AM PDT | | | | | 04/28/12 at 0752, Until Fri | | | | | | | 04/28/12 at 1421 | | | | | | + +-------+ +-------+---+---+ +---+---+ | | | +---+---+ + +-------+ +------+---+---+ | midazolam (aka VERSED) | Given | 04/29/19 | 2 mg | | | | injection INTRAPROCEDURE PRN, | | 13 7:03 | | | | | Starting 04/28/12 at 0703, | | AM PDT | | | | | Until 04/28/12 at 1421 | | | | | | + +-------+ +------+---+---+ +---+---+ | | | +---+---+ + + + +----+---+---+ | NaCl 0.9 % IV INTRAPROCEDURE | given by | 04/29/19 | mL | | | | CONTINUOUS PRN, Starting Fri | | 13 1:30 | | | | | 04/28/12 at 1011, Until Fri | anesthes | PM PDT | | | | | 04/28/12 at 1421 | iology | | | | | + + + +----+---+---+ +---------+ +----+---+---+ | New Bag | 04/29/19 | mL | | | | | 13 10:11 | | | | | | AM PDT | | | | +---------+ +----+---+---+ +---+---+ | | | +---+---+ + +-------+ +------+---+---+ | neostigmine (aka PROSTIGMIN) | Given | 04/29/19 | 3 mg | | | | injection intravenous, | | 13 1:43 | | | | | INTRAPROCEDURE PRN, Starting Fri | | PM PDT | | | | | 04/28/12 at 1343, Until Fri | | | | | | | 04/28/12 at 1421 | | | | | | + +-------+ +------+---+---+ +---+---+ | | | +---+---+ + +---------+ +---------+-------+---+ | nitroGLYCERIN IV infusion 0.2 | New Bag | 04/29/19 | 3 | 0.9 | | | mg/mL intravenous, | | 13 11:18 | mcg/min | mL/hr | | | INTRAPROCEDURE CONTINUOUS PRN, | | AM PDT | | | | | Starting 04/28/12 at 1118, | | | | | | | Until 04/28/12 at 1421 | | | | | | + +---------+ +---------+-------+---+ +---+---+ | | | +---+---+ + +-------+ +---------+---+---+ | phenylePHrine 100 mcg/mL | Given | 04/29/19 | 100 mcg | | | | injection (OR syringe) | | 13 11:04 | | | | | intravenous, INTRAPROCEDURE PRN, | | AM PDT | | | | | Starting 04/28/12 at 0845, | | | | | | | Until 04/28/12 at 1421 | | | | | | + +-------+ +---------+---+---+ +-------+ +---------+---+---+ | Given | 04/29/19 | 100 mcg | | | | | 13 10:32 | | | | | | AM PDT | | | | +-------+ +---------+---+---+ | Given | 04/29/19 | 100 mcg | | | | | 13 8:58 | | | | | | AM PDT | | | | +-------+ +---------+---+---+ +---+---+ | | | +---+---+ + +-------+ +--------+---+---+ | propofol INTRAPROCEDURE PRN, | Given | 04/29/19 | 150 mg | | | | Starting Tue04/28/12 at 0752, | | 13 7:52 | | | | | Until Tue04/28/12 at 1421 | | AM PDT | | | | + +-------+ +--------+---+---+ +---+---+ | | | +---+---+ + +-------+ +-------+---+---+ | rocuronium (aka ZEMURON) | Given | 04/29/19 | 30 mg | | | | injection INTRAPROCEDURE PRN, | | 13 9:57 | | | | | Starting Tue04/28/12 at 0859, | | AM PDT | | | | | Until Tue04/28/12 at 1421, | | | | | | | Neuromuscular block | | | | | | + +-------+ +-------+---+---+ +-------+ +-------+---+---+ | Given | 04/29/19 | 30 mg | | | | | 13 8:59 | | | | | | AM PDT | | | | +-------+ +-------+---+---+ | Given | 04/29/19 | 40 mg | | | | | 13 7:53 | | | | | | AM PDT | | | | +-------+ +-------+---+---+ +---+---+ | | | +---+---+ documented in this encounter"
--- OUTSIDE RECORDS SUMMARY | ~2019-07-09 | XMS | Encounter Summary ---
Demographics + + + | Address | [address] | | | [place] [address] | + + + | Home Phone [...] Author | [facility] | | | and Eduardoana | + + + | Organization | [facility] | | | and Eduardoana | + + + | Address | Unknown | + + + | Phone | Unavailable | + + + Support + + + + + | Name | Relationship | Address | Phone | + + + + + | Poncho Oquendo | ECON | [address] | | | | | [place], [place] | | | | | [address] | | + + + + + | Marta Upton | ECON | [place], [place] | | | | | [address] | | + + + + + Care Team Providers + +------+ + | Care Self Propelled Hot Mix Roller Operator Name | Role | Phone | + +------+ + | No, Physician | PCP | Unavailable | + +------+ + Encounter Details +--------+ + + + + | Date | Type | Department | Care Team | Description | +--------+ + + + + | 07/03/ | Orders Only | [facility] | Reinaldo, | | | 2019 | | MED CTR MED[facility] | Epifanio Soler MD [address] | | | | | ON[facility]OGY CLINIC [address] [place] | | | | | [address] [place] | [place] [address] | | | | | [place] [address] | [phone] | | | | | [phone] | | | +--------+ + + + [...] [address] | | | | | | [place] [address] | | | | | | [phone] | | | | | | | | +--------+---------+ + + + documented as of this encounter Visit Diagnoses Not on filedocumented in this encounter"
--- OUTSIDE RECORDS SUMMARY | ~2019-07-09 | XMS | Encounter Summary ---
Demographics + + + | Address | [address] | | | [place] [address] | + + + | Home Phone [...] + | Author | [facility] | | | and Eduardoana | + + + | Organization | [facility] | | | and Eduardoana | + + + | Address | Unknown | + + + | Phone | Unavailable | + + + Support + + + + + | Name | Relationship | Address | Phone | + + + + + | Poncho Oquendo | ECON | [address] | | | | | [place] | | | | | [address] | | + + + + + | Marta Upton | ECON | [place] | | | | | [address] | | + + + + + Care Team Providers + +------+ + | Care Pump Room Operator Name | Role | Phone | + +------+ + | Valeriy Carmona DO | PCP | | + +------+ + Encounter Details +--------+ + + + + | Date | Type | Department | Care Team | Description | +--------+ + + + + | 07/01/ | Abstract | [facility] | Nelda Fuchs, | | | 2014 | | MED CTR PHARMACY | [facility] [address] | | | | | [address] [place] | [place], [place] | | | | | [place] [address] | [address] | | | | | [phone] | | | +--------+ + + + [...] + documented as of this encounter Progress Nelda Pimentel [facility] - 07/01/2014 1:37 PM PDTFormatting of this note might be different fro m the original. IDT PATIENT MEDICATION/PROFILE REVIEW [facility] Pharmacy Recommendation [...] 12 kg/m2, Est CrCl = 110 ml/min (Schrader-[place] Equation) Allergies : Sulfa antibiotics Diagnosis: Stage IIIA extrahepatic cholangiocarcinoma Treatment Regimen: Gemcitabine: IV: 1250 mg/m2/dose days 1 and 8 [total dose/cycle = 2500 mg/m2] Cisplatin: IV: 75 mg/m2/dose day 1 [total dose/cycle = 75 mg/m2] Repeat cycle every 3 weeks Chemotherapy/Supportive therapy: Ondansetron Dexamethasone Fosaprepitant Lorazepam Cisplatin Gemcitabine Reference/citation for therapy: Stefano S, Dangelon S, Corby C, et al, "Phase II S tudy of [...] 2019 | Visit | | DO [address] | | | | | | [place] [address] | | | | | | [phone] | | | | | | | | +--------+---------+ + + + documented as of this encounter Visit Diagnoses Not on filedocumented in this encounter
--- OUTSIDE RECORDS SUMMARY | ~2019-07-09 | XMS | Encounter Summary ---
Demographics + + + | Address | [address] | | | [place] [address] | + + + | Home Phone | | + + + | Preferred Language | Unknown | + + + | Marital Status | Single | + + + | Mandaen Affiliation | NON | + + + [...] Team Providers + +------+ + | Care Trust Manager Name | Role | Phone | [...] | Digestive Health | Tai Stanton, | Refmary Request | | 2013 | | Center at [facility] [address] | [address] | | | | | [address] | [address] | | | | | Mailcode: Center | [place], [place] | | | | | [facility] and | [address] | | | | | Man [facility] 2 | [phone] | | | | | [place], [place] | | | | | | [address] | | | | | | [phone] | | | +--------+ + + + [...]
--- OUTSIDE RECORDS SUMMARY | ~2019-07-09 | XMS | Encounter Summary ---
Demographics + + + | Address | [address] | | | [place] [address] | + + + | Home Phone [...] Author | [facility] | | | and Eduardoana | + + + | Organization | [facility] | | | and Eduardoana | + + + | Address | Unknown | + + + | Phone | Unavailable | + + + Support + + + + + | Name | Relationship | Address | Phone | + + + + + | Poncho Oquendo | ECON | [address] | | | | | [place] | | | | | [address] | | + + + + + | Marta Upton | ECON | [place] | | | | | [address] | | + + + + + Care Team Providers + +------+ + | Care Shoe Designer Name | Role | Phone | [...] Closed | | Oncology | Diagnoses | Qujose miguel, | Travis, | | | | | [facility] | Valeriy Coello DO | Vladimir Nelson MD | | | | | Q IS OUT- | [address] | [address] | | | | | PATIENT IS | RD | STREET | | | | | FROM [facility] | [place], | [place], | | | | | LABS/PORT | [place] [address] | [place] [address] | | | | | 6 HOUR RX | Phone: | Phone: | | | | | Procedures | [phone] | [phone] | | | | | [facility] | Fax: | Fax: | | | | | FOLLOW UP | [phone] | [phone] | +--------+--------+ + + + + Encounter Details +--------+ + + + + | Date | Type | Department | Care Team | Description | +--------+ + + + + | 05/20/ | Hospital | [facility] | Vladimir Robles, | Gallbladder cancer, | | 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 | MED CTR MEDICAL | [address] | carcinoma (HCC) | | | | ONCOLOGY CLINIC [address] [place], | (Primary Dx); Liver | | | | [address] [place] | [place] [address] | metastases (HCC); | | | | [place] [address] | [phone] | Stage 3a chronic | | | | [phone] | | kidney disease; | | | [...] fr om the original. Hematology-Oncology Progress Note [facility] Pt. Name/Age/: Aura Upton 56 y.o. 1960 CSN: [id number] Date of service: 05/20/2017 Provider: Vladimir Robles MD HEMATOLOGY/ONCOLOGY PROBLEM LIST: Gallbladder cancer, carcinoma (HCC) 03/29/2012 Initial Diagnosis Gallbladder cancer, carcinoma (HCC) 04/26/2012 Surgery R0 resection 05/31/2012 - 09/03/2012 Chemotherapy Xeloda/gemcitabine x - 10/04/2012 Radiation Therapy XRT with Xeloda [...] adjustment of her ch emotherapy, specifically the cis-chilkoot given her renal dysfunction. 1. Proceed with day 1, cycle 1 of dose adjusted cis-chilkoot and gemcitabine as ordered. 2. Increase OxyContin [...] nausea, has decided to t ry palliative cis-chilkoot/gemcitabine again to which she has responded in the past. Ended up in the emergency room yesterday in [place] with nausea and vomiting, responded to ondan [...] and 6 hour treatment, labs done in [facility]. My chart: Medications: Current Outpatient Prescriptions Medication [...] this chart may have been created with Gini voice recognition software. Occasi onal wrong-word or [...] [address] | | | | | | [place] [address] | | | | | | [phone] | | | | | | | [...] encounter Results IMAGING REPORT - EXTERNAL SCAN (03/29/2018 12:00 [...]
--- OUTSIDE RECORDS SUMMARY | ~2019-07-09 | XMS | Encounter Summary ---
Demographics + + + | Address | [address] | | | [place] [address] | + + + | Home Phone | | + + + | Preferred Language | Unknown | + + + | Marital Status | | + + + | Sikhism Affiliation | Unknown | + + + | Race | Unknown | + + + | Ethnic Group | Unknown | + + + Author + + + | Author | [facility] | | | and Eduardoana | + + + | Organization | [facility] | | | and Eduardoana | + + + | Address | Unknown | + + + | Phone | Unavailable | + + + Support + + + + + | Name | Relationship | Address | Phone | + + + + + | Poncho Oquendo | ECON | [address] | | | | | [place] | | | | | [address] | | + + + + + | Marta Upton | ECON | [place] | | | | | [address] | | + + + + + Care Team Providers + +------+ + | Care Beer Still Runner Compounder Name | Role | Phone | + [...] | | | ONCOLOGY CLINIC [address] | [facility] | | | | | [address] | [place] [address] | | | | | [place] [address] | [phone] | | | | | [phone] | | | +--------+ + + + [...] [address] | | | | | | [facility] [address] | | | | | | [phone] | | | | | | | | +--------+---------+ + + + documented as of this encounter Visit Diagnoses Not on filedocumented in this encounter"
--- OUTSIDE RECORDS SUMMARY | ~2019-07-09 | XMS | Encounter Summary ---
Demographics + + + | Address | [address] | | | [place] [address] | + + + | Home Phone [...] Team Providers + +------+ + | Care Hose Inspector And Patcher Name | Role | Phone | + +------+ + | Tomasa Wagner | PCP | | + +------+ + Reason for Visit +---------+ + | Reason | Comments | +---------+ + | Post Op | | +---------+ + Encounter Details +--------+---------+ + + + | Date | Type | Department | Care Team | Description | +--------+---------+ + + + | 06/21/ | Office | Digestive Health | Tai Stanton, | Encounter for wound | | 2013 | Visit | [place] at [facility] [address] | [address] | care (Primary Dx) | | | | [address] | [address] | | | | | Mailcode: Center | [place], [place] | | | | | for Health and | [address] | | | | | [facility] 2 | [phone] | | | | | [place], [place] | | | | | | [address] | | | | | | [phone] | | | +--------+---------+ + + + [...] + + + | Blood Pressure | 117/60 | 06/21/2012 4:04 PM | | | | | PDT | | + + + + + | Pulse | 92 | 06/21/2012 4:04 PM | | | | | PDT | | + + + + + | Temperature | 36.8 C (98.2 F) | 06/21/2012 4:04 PM | | | | | PDT | | + + + + + | Respiratory Rate | 15 | 06/21/2012 4:04 PM | | | | | PDT | | + + + + + | Oxygen Saturation | - | - | | + + + + + | Inhaled Oxygen | - | - | | | Concentration | | | | + + + + + | Weight | 77.2 kg (170 lb 3.2 | 06/21/2012 4:04 PM | | | | oz) | PDT | | + + + + + | Height | 162.6 cm (5' 4") | 06/21/2012 4:04 PM | | | | | PDT | | + + + + + | Body Mass Index | 29.21 | 06/21/2012 4:04 PM | | | | | PDT | | + + + + + documented in this encounter Progress Notes Tai Stanton MD - 06/27/2012 6:58 PM Desi Upton looks great and has tolerated her first chemotherapy with out too much in the way of ill effects. She is now about 2 nisreen hs out from her diagnostic laparoscopy with biopsies, intraoperative ultrasound, partial segment 4B and 5 liver resection (gallbladder fossa with en bloc portal lymphadenectomy) fo r a T2N1 Adenocarcinoma of the gallbladder. Her exam today is unremarkable with the excepti on of a sub centimeter separation of her skin which tracks down into her subcutaneous tissue and requires light packing. I suspect this will not close until she has completed her chemo therapy. I will see her back in 2 months or sooner if she wishes. Tai Stanton M.D. [facility] ([facility]) Professor and Vice-Electric Motor Repair Supervisor of Surgery The Shahriar Nava Chair for Pancreatic Disease Research Pancreatic/ HepatoBiliary and Foregut Working Groups Office email: [email or web address] documented in this en counter Plan of Treatment Not on filedocumented as of this encounter Visit Diagnoses + + | Diagnosis | + + | Encounter for wound care - Primary Encounter for other specified aftercare | + + documented in this encounter
--- OUTSIDE RECORDS SUMMARY | ~2019-07-09 | XMS | Encounter Summary ---
Demographics + + + | Address | [address] | | | [place] [address] | + + + | Home Phone | | + + + | Preferred Language | Unknown | + + + | Marital Status | Single | + + + | Latter Day Affiliation | NON | + + + [...] Team Providers + +------+ + | Care Laundry Aide Name | Role | Phone | [...] | | | Reconstructive | Velma [place], | | | | | Services at [facility] | [place] [address] | | | | | [address] | [phone] | | | | | Mailcode: [address]E | | | | | | [facility] | | | | | | and Healing, | | | | | | Building | | | | | | [place], [place] | | | | | | [address] | | | | | | [phone] | | | +--------+ + + + [...]
--- OUTSIDE RECORDS SUMMARY | ~2019-07-09 | XMS | Encounter Summary ---
Demographics + + + | Address | [address] | | | [place] [address] | + + + | Home Phone | | + + + | Preferred Language | Unknown | + + + | Marital Status | Single | + + + | Synagogue Affiliation | NON | + + + | Race | White | + + + | Ethnic Group | Not or | + + + Author + + + | Author | [facility] | + + + | Organization | [facility] | + + + | Address [...] Team Providers + +------+ + | Care Conservation Planner Name | Role | Phone | + +------+ + | Tomasa Wagner | PCP | | + +------+ + Reason for Visit + + + | Reason | Comments | + + + | Medical Records | [facility]: Progress Notes 09/25/2013 [...] | | 2013 | | Center at [facility] [address] | [address] | Review ([facility] - | | | | [address] | [address] | OUTSIDE REOCRDS: | | | | Mailcode: Center | [place], [place] | Progress Notes | | | | for Health and | [address] | 09/25/2013 (f/u | | | | Healing, Building 2 | [phone] | chemo/radiation | | | | [place], [place] | | therapy for | | | | [address] | | cholangiocarcinoma) | | | | [phone] | | & IMAGING REPORT | | [...]
--- OUTSIDE RECORDS SUMMARY | ~2019-07-09 | XMS | Encounter Summary ---
Demographics + + + | Address | [address] | | | [place] [address] | + + + | Home Phone [...] + + | Author | [facility] | | | and Eduardoana | + + + | Organization | [facility] | | | and Eduardoana | + + + | Address | Unknown | + + + | Phone | Unavailable | + + + Support + + + + + | Name | Relationship | Address | Phone | + + + + + | Poncho Oquendo | ECON | [address] | | | | | [place] | | | | | [address] | | + + + + + | Marta Upton | ECON | [place] | | | | | [address] | | + + + + + Care Team Providers + +------+ + | Care Grain Inspector Name | Role | Phone | [...] [place] | | | | | [address] [place] | [place] [address] | | | | | [place] [address] | [phone] | | | | | [phone] | | | +--------+ + + + [...] 2019 | Visit | | DO Vaishali [address]EYAN[address] | | | | | | [place] [address] | | | | | | [phone] | | | | | | | | +--------+---------+ + + + documented as of this encounter Visit Diagnoses + + | Diagnosis | + + | 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
--- OUTSIDE RECORDS SUMMARY | ~2019-07-09 | XMS | Encounter Summary ---
Demographics + + + | Address | [address] | | | [place] [address] | + + + | Home Phone [...] Team Providers + +------+ + | Care Novelty Candy Maker Name | Role | Phone | [...] | | | | | | | [facility] for | | | | | | | Health and | | | | | | | Healing, | | | | | | | Building [address] | | | | | | | [place], [place] | | | | | | | [address] | | | | | | | Phone: | | | | | | | [phone] | | | | | | | Fax: | | | | | | | [phone] | +--------+--------+ + + + + Encounter Details +--------+---------+ + + + | Date | Type | Department | Care Team | Description | +--------+---------+ + + + | 11/01/ | Office | Digestive Health | Tai Stanton, | Gallbladder | | 2012 | Visit | Center at [facility] [address] | [place] [address] [facility] | carcinoma (HCC) | | | | [address] | [address] | (Primary Dx) | | | | Mailcode: Raymond | [place], [place] | | | | | [facility] and | [address] | | | | | [facility] 2 | [phone] | | | | | [place], [place] | | | | | | [address] | | | | | | [phone] | | | +--------+---------+ + + + [...] the resident s note. Tai Stanton M.D. [facility] ([facility]) Professor and Vice-Presidential Support Specialist of Surgery The Shahriar Nava Chair for Pancreatic Disease Research Pancreatic/ HepatoBiliary and Foregut Working Groups Office email: [email or web address] Smitha Ngo Md - 11/01/2012 [...] primary oncologist (plan for survellence imaging in [facility]) -- Return to surgery clinic as needed Dr. Stanton has seen and examined the patient and agrees with the above plan. Signed: Smitha Loomis MD General Surgery Pager: [phone] [facility] Department of Surgery documented in this en counter Plan of Treatment Not on filedocumented as of this encounter Visit Diagnoses + + | Diagnosis | + + | Gallbladder 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
--- OUTSIDE RECORDS SUMMARY | ~2019-07-09 | XMS | Encounter Summary ---
Demographics + + + | Address | [address] | | | [place] [address] | + + + | Home Phone [...] | [facility] | | | and Eduardoana | + + + | Organization | [facility] | | | and Eduardoana | + + + | Address | Unknown | + + + | Phone | Unavailable | + + + Support + + + + + | Name | Relationship | Address | Phone | + + + + + | Poncho Oquendo | ECON | [address] | | | | | [place] | | | | | [address] | | + + + + + | Marta Upton | ECON | [place] | | | | | [address] | | + + + + + Care Team Providers + +------+ + | Care Chief Radiologic Technologist Name | Role | Phone | + [...] [address] [place] | | | | | [place], | [place] [address] | | | | | [place] [address] | [phone] | | | | | [phone] | | | +--------+ + + + [...] [address] | | | | | | [place] [address] | | | | | | [phone] | | | | | | | | +--------+---------+ + + + documented as of this encounter Visit Diagnoses + + | Diagnosis | + + | Gallbladder cancer, carcinoma (HCC) Malignant neoplasm of gallbladder | + + documented in this encounter"
--- OUTSIDE RECORDS SUMMARY | ~2019-07-09 | XMS | Encounter Summary ---
Demographics + + + | Address | [address] | | | [place] [address] | + + + | Home Phone | | + + + | Preferred Language | Unknown | + + + | Marital Status | Single | + + + | Rastafari Affiliation | NON | + + + [...] Team Providers + +------+ + | Care Online Merchant Name | Role | Phone | + +------+ + | Prudencio Isaac MD | PCP | | + +------+ + Encounter Details +--------+ + + + + | Date | Type | Department | Care Team | Description | +--------+ + + + + | 04/21/ | Telephone | Digestive Health | Tai Stanton, | | | 2012 | | [place] at [address] | [address] [facility] | | | | | [address] | [address] | | | | | Mailcode: Center | [place], [place] | | | | | [facility] and | [address] | | | | | Healing, Building 2 | [phone] | | | | | [place], [place] | | | | | | [address] | | | | | | [phone] | | | +--------+ + + + [...]
--- OUTSIDE RECORDS SUMMARY | ~2019-07-09 | XMS | Encounter Summary ---
Demographics + + + | Address | [address] | | | [place] [address] | + + + | Home Phone [...] | [facility] | | | and Eduardoana | + + + | Organization | [facility] | | | and Eduardoana | + + + | Address | Unknown | + + + | Phone | Unavailable | + + + Support + + + + + | Name | Relationship | Address | Phone | + + + + + | Poncho Oquendo | ECON | [address] | | | | | [facility] [place] | | | | | [address] | | + + + + + | Marta Upton | ECON | [place], [place] | | | | | [address] | | + + + + + Care Team Providers + +------+ + | Care Aircraft Structural Fitter Name | Role | Phone | [...] | [address] | [address] | | | | | [place], [place] | [place] [address] | | | | | [address] | [phone] | | | | | [phone] | | | +--------+ + + + [...] | | | | | [place] [address] | | | | | | [phone] | | | | | | | | +--------+---------+ + + + documented as of this encounter Visit Diagnoses Not on filedocumented in this encounter
--- OUTSIDE RECORDS SUMMARY | ~2019-07-09 | XMS | Encounter Summary ---
Demographics + + + | Address | [address] | | | [place] [address] | + + + | Home Phone [...] Providers + +------+ + | Care Chef Concierge Name | Role | Phone | + [...] | | | Reconstructive | Velma Whitfield [place], | | | | | Services at [facility] | [place] [address] | | | | | [address] | [phone] | | | | | Mailcode: [facility] | | | | | | [facility] for [facility] | | | | | | and Healing, | | | | | | Building , | | | | | | [place], [place] | | | | | | [address] | | | | | | [phone] | | | +--------+ + + + [...]
--- OUTSIDE RECORDS SUMMARY | ~2019-07-09 | XMS | Encounter Summary ---
Demographics + + + | Address | [address] | | | [place] [address] | + + + | Home Phone | | + + + | Preferred Language | Unknown | + + + | Marital Status | | + + + | Episcopalian Affiliation | Unknown | + + + | Race | Unknown | + + + | Ethnic Group | Unknown | + + + Author + + + | Author | [facility] | | | and Eduardoana | + + + | Organization | [facility] | | | and Eduardoana | + + + | Address | Unknown | + + + | Phone | Unavailable | + + + Support + + + + + | Name | Relationship | Address | Phone | + + + + + | Poncho Oquendo | ECON | [address] | | | | | [place] | | | | | [address] | | + + + + + | Marta Upton | ECON | [place] | | | | | [address] | | + + + + + Care Team Providers + +------+ + | Care [place] Boatman Name | Role | Phone | + +------+ + | Valeriy Carmona DO | PCP | | + +------+ + Encounter Details +--------+ + + + + | Date | Type | Department | Care Team | Description | +--------+ + + + + | 03/05/ | Hospital | [facility] | Reinaldo, | Mass of breast, | | 2017 | Encounter | MED CTR ULTRASOUND | Epifanio Soler MD [address] | right | | | | [address] [place] | [address] [place] | | | | | [place], [place] | [place] [address] | | | | | [address] | [phone] | | | | | [phone] | | | | | | | [...] [address] | | | | | | [place] [address] | | | | | | [phone] | | | | | | | [...] BREAST LIMITED RIGHT 03/05/2016 1:00 PM EXAM: [facility] | [facility] | [...] LIMITED RIGHT 03/05/2016 1:00 | | PMEXAM: [facility] T[facility] DIAGNOSTIC RIGHT dated 03/05/2016 [...]
--- OUTSIDE RECORDS SUMMARY | ~2019-07-09 | XMS | Encounter Summary ---
Demographics + + + | Address | [address] | | | [place] [address] | + + + | Home Phone [...] Author | [facility] | | | and Eduardoana | + + + | Organization | [facility] | | | and Eduardoana | + + + | Address | Unknown | + + + | Phone | Unavailable | + + + Support + + + + + | Name | Relationship | Address | Phone | + + + + + | Poncho Oquendo | ECON | [address] | | | | | [facility] [place] | | | | | [address] | | + + + + + | Marta Upton | ECON | [place] | | | | | [address] | | + + + + + Care Team Providers + +------+ + | Care Manager Contact Name | Role | Phone | + [...] + + | 04/26/ | Hospital | [facility] | | Gallbladder cancer, | | 2020 | Encounter | [facility] | | carcinoma (HCC); | | | | CENTER INTRA OP | | Obstruction of left | | | | [address] | | ureter | | | | [place] | | | | | | [address] | | | | | | [phone] | | | +--------+ + + + [...] lasts more than a day, a fever [id number] (38 C), or trouble urinating. Date Last Reviewed: 02/15/201619999920-4502 [employer]. [address] [place] [address]. All righ ts reserved. This information is [...] out of the urethra Date Last Reviewed: 02/15/201619999601-9938 [employer]. [address] [place] [address], [place] [address]. All righ ts reserved. This information is [...] [facility] | | | | | | [place] [address] | | | | | | [phone] | | | | | | | [...]
--- OUTSIDE RECORDS SUMMARY | ~2019-07-09 | XMS | Encounter Summary ---
Demographics + + + | Address | [address] | | | [place] [address] | + + + | Home Phone [...] Author | [facility] | | | and Eduardoana | + + + | Organization | [facility] | | | and Eduardoana | + + + | Address | Unknown | + + + | Phone | Unavailable | + + + Support + + + + + | Name | Relationship | Address | Phone | + + + + + | Poncho Oquendo | ECON | [address] | | | | | [facility] [place] | | | | | [address] | | + + + + + | Marta Upton | ECON | [place], [place] | | | | | [address] | | + + + + + Care Team Providers + +------+ + | Care Grape Cutter Name | Role | Phone | + +------+ + | No, Physician | PCP | Unavailable | + +------+ + Encounter Details +--------+ + + + + | Date | Type | Department | Care Team | Description | +--------+ + + + + | 04/22/ | Preadmit | [facility] | | | | 2019 | Visit | [facility] SUR[facility]ERY | | | | | | CENTER PREADMISSION | | | | | | [facility] [address] | | | | | | [place] | | | | | | [address] | | | | | | [phone] | | | +--------+ + + + [...] [facility] | | | | | | [place] [address] | | | | | | [phone] | | | | | | | | +--------+---------+ + + + documented as of this encounter Visit Diagnoses Not on filedocumented in this encounter
--- OUTSIDE RECORDS SUMMARY | ~2019-07-09 | XMS | Encounter Summary ---
Demographics + + + | Address | [address] | | | [place] [address] | + + + | Home Phone [...] + | Author | [facility] | | | and Eduardoana | + + + | Organization | [facility] | | | and Eduardoana | + + + | Address | Unknown | + + + | Phone | Unavailable | + + + Support + + + + + | Name | Relationship | Address | Phone | + + + + + | Poncho Oquendo | ECON | [address] | | | | | [place] | | | | | [address] | | + + + + + | Marta Upton | ECON | [place] | | | | | [address] | | + + + + + Care Team Providers + +------+ + | Care Executor Of Estate Name | Role | Phone | + +------+ + | Valeriy Carmona DO | PCP | | + +------+ + Encounter Details +--------+ + + + + | Date | Type | Department | Care Team | Description | +--------+ + + + + | 09/05/ | Orders Only | [facility] | Provider, | | | 2019 | | SYSTEM GENERIC OP | [address] | | | | | [address] | [address] | | | | | [address] [place], [place] | [place] [address] | | | | | [address] | | | | | | [phone] | | | +--------+ + + + [...] [facility] | | | | | | [place] [address] | | | | | | [phone] | | | | | | | | +--------+---------+ + + + documented as of this encounter Visit Diagnoses Not on filedocumented in this encounter"
--- OUTSIDE RECORDS SUMMARY | ~2019-07-09 | XMS | Encounter Summary ---
Demographics + + + | Address | [address] | | | [place] [address] | + + + | Home Phone [...] Team Providers + +------+ + | Care Secondary School Teacher Librarian Name | Role | Phone | + +------+ + | Tomasa Wagner | PCP | | + +------+ + Encounter Details +--------+ + + + + | Date | Type | Department | Care Team | Description | +--------+ + + + + | 06/01/ | Abstract | Dig[facility]ive Health | Tai Stanton, | | | 2012 | | [place] [facility] [address] | [address] | | | | | [address] | [address] | | | | | Mailcode: Center | [place], [place] | | | | | [facility] and | [address] | | | | | Healing, Building [address] | [phone] | | | | | [place], [place] | | | | | | [address] | | | | | | [phone] | | | +--------+ + + + [...]
--- OUTSIDE RECORDS SUMMARY | ~2019-07-09 | XMS | Encounter Summary ---
Demographics + + + | Address | [address] | | | [place] [address] | + + + | Home Phone [...] Team Providers + +------+ + | Care Residence Counselor Name | Role | Phone | + [...] Mojica | (distress); | | | | [facility] | [address] | Questionnaire | | | | for Health and | [place] [address] | | | | | Healing [address] | [phone] | | | | | [place], [place] | | | | | | [address] | | | | | | [phone] | | | +--------+ + + + [...]
--- OUTSIDE RECORDS SUMMARY | ~2019-07-09 | XMS | Encounter Summary ---
Demographics + + + | Address | [address] | | | [place] [address] | + + + | Home Phone [...] Team Providers + +------+ + | Care Instrument Assembler Name | Role | Phone | + +------+ + PCP | Unavailable | + +------+ + Encounter Details +--------+ + + + + | Date | Type | Department | Care Team | Description | +--------+ + + + + | 04/11/ | Abstract | Digestive Health | Tai Stanton, | | | 2012 | | [place] at [facility] [address] | [address] | | | | | [address] | [address] | | | | | Mailcode: [place] | [place], [place] | | | | | for Health and | [address] | | | | | [place] [address] | [phone] | | | | | [place], [place] | | | | | | [address] | | | | | | [phone] | | | +--------+ + + + [...]
--- OUTSIDE RECORDS SUMMARY | ~2019-07-09 | XMS | Encounter Summary ---
Demographics + + + | Address | [address] | | | [place] [address] | + + + | Home Phone [...] Team Providers + +------+ + | Care Wrecking Supervisor Name | Role | Phone | [...] | | 2013 | | Center at [facility] [address] | [address] | | | | | [address] | [address] | | | | | Mailcode: Center | [place], [place] | | | | | [facility] and | [address] | | | | | [facility] | [phone] | | | | | [place], [place] | | | | | | [address] | | | | | | [phone] | | | +--------+ + + + [...]
--- OUTSIDE RECORDS SUMMARY | ~2019-07-09 | XMS | Encounter Summary ---
Demographics + + + | Address | [address] | | | [place] [address] | + + + | Home Phone [...] Team Providers + +------+ + | Care Bulk Plant Supervisor Name | Role | Phone | [...] 2014 | | [address] | [address] [facility] | LAPAROTOMY; TOTAL | | | | Rd [facility] | [address] | ABDOMINAL | | | | Hospital Admitting | [place], [place] | HYSTERECTOMY; | | | | Desk Located on the | [address] | BILATERAL | | | | 9th floor | [phone] | SALPINGO-OOPHORECTOM | | | | [place], [place] | | Y; OMENTECTOMY; LEFT | | | | [address] | | PELVIC AND | | | [...] DISCHARGE SUMMARY Author: Roger Guadalupe MD PGY1 SIGNAL AND COMMUNICATIONS MAINTAINER Attending Physician: Dr. Henderson Admission Date: 06/06/2014 [...] to Get Your Medications You need to draft roller picker these prescriptions. We sent some of them to a specific pharmacy. Go t o these places to get your medications. [facility] - enoxaparin 40 mg/0.4 mL Syrg [address] [facility] [address] [facility] [address] Hours: 8AM-9PM Mon-Fri; 9-5:30PM Sat-Sun You may [...] To contact your provider, please call the [facility] clinic at [phone] during daytime hours. During evening or weekend hours, please call the [facility] paging highwall drill operator at [phone] and ask for the Shaft Repairer Oncology staff on-call. Reasons to call the [...] stable Discharging Physician: Roger Guadalupe MD PGY1 SIGNAL AND COMMUNICATIONS MAINTAINER Service Pager: [phone] Attending Physician: Dr. Henderson I saw and [...] assessment and plan. Roger Guadalupe MD PGY1 SIGNAL AND COMMUNICATIONS MAINTAINER Service Pager: [phone] I saw and evaluated the patient. I [...] assistance. Primary service notified. RAGHU DALY MD [facility] [facility], 4th Floor Mail Code: CH4P [place], [place] [address] Raghu Antony MD - 06/08/2014 [...] and recommendations with primary care team provider aircraft tool maker/oncology. RAGHU DALY MD BILLING INFORMATION [facility] DEPARTMENT: [id number] Place of Service:- Inpatient Date of Service: 06/08/2014 CSN: [id number] Suggested Modifier: None Suggested CPT: 55086 - Daily mgmt epidural/subarachnoid drug administration Prolonged service: n/a Counseling and Coordination: n/a egeest, MD Miguel - 06/08/2014 8:00 AM PDT GYNECOLOGY ONCOLOGY INPATIENT PROGRESS NOTE Hospital Day: 1 Author: PONCHO ARRIOLA MD Attending Physician: Miguel Seymuor MD ID: [id number] year old POD#2 from [...] assessment and plan. Roger Guadalupe MD PGY1 SIGNAL AND COMMUNICATIONS MAINTAINER Service Pager: [phone] I saw and evaluated the patient. I agree with the findings and the plan of care as shruthi ramirez in the resident s note. Patt Henderson M.D. Division of Gynecologic Oncology Department of Obstetrics and Gynecology Raguh Antony MD - 06/07/2014 9:26 AM PDTThis [...] separate note in EPIC). RAGHU DALY MD [facility] [address] [facility], 4th Floor Mail Code: CH4P [place], [place] [address] Raghu Antony MD - 06/07/2014 7:39 AM [...] 125 mL/hr intravenous CONTINUOUS 125 mL/hr (06/07/14 5121) Type: Epidural Rate: 4 mL/hour Anticoagulants: enoxaparin [...] care team provider . RAGHU DALY MD [facility] [address] [facility], 4th Floor Mail Code: CH4P [place], [place] [address] BILLING INFORMATION [facility] DEPARTMENT: [id number] Place of Service:- Inpatient Date of Service: 06/07/2014 CSN: [id number] Suggested Modifier: GC - Resident Involved Suggested CPT: 33810 - Daily mgmt epidural/subarachnoid drug administration Prolonged [...] | Abdominal or | | | LAPAROSCOPY (PLEATING SUPERVISOR | ve | 7:27 AM | pelvic [...] + +--------+ + + + | NON PLEATING SUPERVISOR CYTOLOGY | Routin | 06/06/2014 | | [...] | + + + + + | [facility] | [address] [facility] [address] | [place] [address] | | | SERVICES, CORE | PARK [...] | + + + + + | [facility] | [address] | [place] [address] | | | SERVICES, SAM | PARK [...] | | | LABORATORY | | | NEPALESE | | | SERVICES, | | | [...] the MDRD equation recommended by the | [facility] | | National Kidney Disease Education Program. [...] [facility] | [address] | [place] [address] | | | SERVICES, CORE | PARK [...] [facility] | [address] | [place] [address] | | | SERVICES, CORE | PARK [...] [facility] | [address] | [place] [address] | | | SERVICES, CORE | PARK [...] | | | LABORATORY | | | NEPALESE | | | SERVICES, | | | [...] | + + + + + | [facility] [employer] | [address] | [place] [address] | | | SERVICES, CORE | [address] | | | + + + + + OPERATION RECORD (06/07/2014 8:30 AM PDT) + + | Transcriptions | + + | Miguel Seymour MD - 06/06/2014 12:48 PM PDT Date of Service: 06/06/2014 | | Attending Surgeon: Miguel Seymour MD Management Internship(s): | | Poncho Arriola MD. Anesthesia: General [...] 06/06/2014 11:52:24DT: 06/06/2014 12:48:01Job #: | | [id number] DEPARTMENT: [id number] PLEATING SUPERVISOR ONC [facility] Service: - | | IPDate of Service: 06/07/2014 : [id number] | | Modifier: NoneSuggested CPT: NoneSuggested Procedure [...] + + | [facility] | [address] | [place] [address] | | | SERVICES, SAM | NEAL [...] [facility] | [address] | [place] [address] | | | SERVICES, CORE | PARK [...] + + | [facility] | [address] | [place] [address] | | | SERVICES, CORE | NEAL [...] [facility] | [address] | [place] [address] | | | SERVICES, CORE | PARK [...] | | | LABORATORY | | | NEPALESE | | | SERVICES, | | | [...] | + + + + + | [facility] [employer] | [address] | [place] [address] | | | SERVICES, CORE | [address] | | | + + + + + NON PLEATING SUPERVISOR CYTOLOGY (06/06/2014) + + + + + + | Component | Value | Ref Range | Performed | Pathologist | | | | | At | Signature | + + + + + + | NON-PLEATING SUPERVISOR | SOURCE OF SPECIMEN:A | | [facility] [...] San | | | | | | CT(ASCP)Airplane Navigator | | | | | | Electronically [...] | + + + + + | [facility] | [address] | [place] [address] | | | PATHOLOGY | [address] [...] | | | | | | corresponding [id number] | | | | | | B: [...] bed | | | | | | ([id number], slides E3-4). | | | | | [...] | | | | cs determined by [facility] | | | | | | laboratories. [...] | | | | | | s/pchemoXRT ([id number], | | | | | | [id number]); now with | | | | | [...] | | | | | | | Utility Locator | | | | | | sections [...] identified. | | | | | | Utility Locator | | | | | | sections [...] residueB3-6, | | | | | | entry level marketing representative sections | | | | | | of #1 external | | | | | | excrescenceB7-8, #2 | | | | | | external | | | | | | excrescenceB9-10, entire | | | | | | #3 external | | | | | | yligtxieqgkU91, | | | | | | entry level marketing representative sections | | | | | | of del rio-brown | | | | | | excrescences from inner | | | | | | cyst irjxobshscY82-63, | | | | | | additional sections of | | | | | | zibjnQ01, entry level marketing representative | | | | | | [...] endomyometriumD5, | | | | | | entry level marketing representative sections | | | | | | of right ovaryD6-9, | | | | | | entry level marketing representative sections | | | | | | of external ovarian | | | | | | tbaemyX97-70, | | | | | | entry level marketing representative sections | | | | | [...] + + | Performing | Address | City[facility] | Phone Number | | Organization | | | | + + + + + | [facility] | [address] | [place] [address] | | | PATHOLOGY | [address] [...]
--- OUTSIDE RECORDS SUMMARY | ~2019-07-09 | XMS | Encounter Summary ---
Demographics + + + | Address | [address] | | | [place] [address] | + + + | Home Phone [...] | Author | [facility] | | | and Eduardoana | + + + | Organization | [facility] | | | and Eduardoana | + + + | Address | Unknown | + + + | Phone | Unavailable | + + + Support + + + + + | Name | Relationship | Address | Phone | + + + + + | Poncho Oquendo | ECON | [address] | | | | | [place] | | | | | [address] | | + + + + + | Marat Upton | ECON | [place] | | | | | [address] | | + + + + + Care Team Providers + +------+ + | Care Medical Examiner Name | Role | Phone | [...] + | 11/07/ | Telephone | [facility] | [place], | Other | | 2018 | | [facility] | Epifanio Soler MD [address] | | | | | [address] | [facility] | | | | | [address] [facility] | [place] [address] | | | | | [place] [address] | [phone] | | | | | [phone] | | | +--------+ + + + [...] [facility] | | | | | | [facility] [place] [address] | | | | | | [phone] | | | | | | | | +--------+---------+ + + + documented as of this encounter Visit Diagnoses Not on filedocumented in this encounter"
--- OUTSIDE RECORDS SUMMARY | ~2019-07-09 | XMS | Encounter Summary ---
Demographics + + + | Address | [address] | | | [place] [address] | + + + | Home Phone [...] | [facility] | | | and [place]ardo[place] | + + + | Organization | [facility] | | | and Eduardoana | + + + | Address | Unknown | + + + | Phone | Unavailable | + + + Support + + + + + | Name | Relationship | Address | Phone | + + + + + | Poncho Oquendo | ECON | [address] | | | | | [facility], [place] | | | | | [address] | | + + + + + | Marta Upton | ECON | [place], [place] | | | | | [address] | | + + + + + Care Team Providers + +------+ + | Care Steel Handler Name | Role | Phone | + +------+ + PCP | Unavailable | + +------+ + Reason for Visit +--------+ + | Reason | Comments | +--------+ + | Other | | +--------+ + Encounter Details +--------+ + + + + | Date | Type | Department | Care Team | Description | +--------+ + + + + | 05/01/ | Telephone | [facility] | Reinaldo, | Other | | 2013 | | [facility] CTR MED[facility] | Epifanio Soler MD [address] | | | | | [address] | [address] | | | | | [address] | [place] [address] | | | | | [place] [address] | [phone] | | | | | [phone] | | | +--------+ + + + [...] | | | | | [place] [address] | | | | | | [phone] | | | | | | | | +--------+---------+ + + + documented as of this encounter Visit Diagnoses Not on filedocumented in this encounter"
--- OUTSIDE RECORDS SUMMARY | ~2019-07-09 | XMS | Encounter Summary ---
Demographics + + + | Address | [address] | | | [place] [address] | + + + | Home Phone | | + + + | Preferred Language | Unknown | + + + | Marital Status | Single | + + + | Zoroastrianism Affiliation | NON | + + + [...] Team Providers + +------+ + | Care Plastics Tooling Engineer Name | Role | Phone | [...] + | | | | | | | +--------+--------+ + + + + Encounter Details +--------+ + + + + | Date | Type | Department | Care Team | Description | +--------+ + + + + | 12/23/ | Hospital | [facility] [address] | Dagoberto Iniguez, | | | 2018 - | Encounter | [address] | [address] | | | | | [place], [place] | [address] | | | 12/27/ | | [address] | [place], [place] | | | 2017 | | [phone] | [address] | | | | | | [phone] | | | | | | | | | | | | Marbin Espinoza MD | | | | | | [address] | | | | | | [place], | | | | | | [place] [address] | | | | | | [phone] | | | | | | | | | | | | Lloyd Garcia, | | | | | | [address] | | | | | | [address] | | | | | | [place], [place] | | | | | | [address] | | | | | | [phone] | | | | | | | [...] + + + documented in this encounter Functional Status + + + [...] + documented as of this encounter Discharge Summaries Raghu Jarrett MD - 12/27/2017 1:16 PM PSTFormatting of this note might be differen t from the original. [facility] Discharge Summary Discharging Provider: RAGHU JARRETT MD Discharging Attending Physician: Luigi Garcia MD Hospital Stay: 4 day(s) PCP: Valeriy Carmona MD Admission Date: 12/23/2017 Discharge Date: 12/27/2017 Hospital Stay: 4 day(s) Reason for Admission: Ms. Upton is a 57 yo woman with a hx of metastatic cholangiocarcinoma (Dx 2012, on palli ative gemcitabine/cisplatin), hx of SBO s/p venting gastrostomy tube who presented to OSH on 12/23 with hypotension, tachycardia, and fever after accessing her [facility]acath [facility]. She was admitted for septic shock found to have Klebsiella bacteremia with concern for colonized portacath. Principal Final Diagnosis: Klebsiella bacteremia Additional Diagnoses: Infected portacath Procedures: Left portacath removal 12/27 JULY, prerenal -- resolving Hospital Course: # Klebsiella bacteremia # infected portacath At [facility], Ms. Upton was hypotensive to 70/40s with fever concerning for septic s hock. She received IV fluids and 1 unit pRBCs for Hgb of 7.0 and was transferred to [facility] for further care. On admission to [facility], she was no longer hypotensive and did not require vasopressors. She was started on cefepime, flagyl, and vancomycin. Blood cultures at OSH fro m 12/23 revealed Klebsiella pneumoniae from both R hand and portacath. It was pansentitive. I nfectious disease was consulted who found that pt has Klebsiella bacteremia 1 month ago joyce whiting admitted to [facility] for sepsis. Given 2 bacteremic events, portacath was felt to be etiology and it was removed by general surgery at bedside on 12/27 without complication. - ciprofloxacin 500 mg BID x 7 days after catheter removal - remove packing from portacath site on 12/28, then cover with gauze - f/u with Dr. Najera in 1 week for wound check and discussion of portacath placement - warm handoff given to Rukhsana Young RN, at Dr. Najera's office # JULY, prerenal Resolved with improved PO intake but not quite to baseline (~0.8) at 1.0 on discharge. Pertinent labs: On admit: WBC 17.23 --> 22.23, Hgb 9.7, Plt 51, BUN 25, sCr 1.26 (12/25) On discharge: WBC 7.82, Hgb 8.8, Plt 46, BUN 18, sCr 1.08 (12/27) Blood culture 12/23, 12/24, 12/25: all no growth to date. Culture from cath tip 12/27: pending [facility] Blood culture 12/23 x2 (peripheral and port) GNR; cx Klebsiella pneumonia (R: ampicillin; s: cefazolin, ceftriaxone, meropenem, ciprofloxacin, tmp/smx) Discharge Medications: Medication List START taking these medications ciprofloxacin HCl 500 mg Tab Commonly known as: CIPRO Take 1 tablet by mouth every twelve hours. Indications: port infection NARCAN 4 mg/actuation [place] Generic drug: naloxone Instill 1 spray into nose as needed for suspected opioid overdose. Repeat with second devic e into other nostril after 2-3 minutes if no/minimal response. CONTINUE taking these medications docusate sodium 100 mg Cap Commonly known as: COLACE Take 1 capsule by mouth two times daily. fentaNYL 100 mcg/hr patch Commonly known as: DURAGESIC Apply 1 patch to skin every seventy-two hours. Please remove old patch prior to placing a n ew one. HYDROmorphone 1 mg/mL Liqd Commonly known as: DILAUDID Take by mouth every three hours as needed. Indications: unknown ibuprofen 600 mg Tab Commonly known as: MOTRIN Take 1 tablet by mouth every six hours as needed. lidocaine 5 % Ptmd Commonly known as: LIDODERM Apply 1 patch to skin once daily. Apply patch to most painful area; Patch may remain in chris ce for up to 12 hours in any 24-hour period. LORazepam 1 mg Tab Commonly known as: ATIVAN Take 1.5 mg by mouth. MULTI VITAMIN ORAL Take 1 tablet by mouth once daily. ondansetron ODT 4 mg Tbdi Commonly known as: ZOFRAN ODT Dissolve 4 mg on tongue and swallow every twelve hours as needed. Indications: unknown home dose oxyCODONE (immediate release) 5 mg Tab Commonly known as: ROXICODONE Take 1 tablet by mouth every six hours as needed. polyethylene glycol 17 gram/dose Powd Commonly known as: MIRALAX Take 17 g by mouth once daily. PROBIOTIC ORAL Take 1 capsule by mouth once daily. Rationale for Medication Changes: Ciprofloxacin for Klebsiella pneuomoniae bacteremia Allergies: Allergies Allergen Reactions Sulfacetamide Sodium Hives Code Status: Full POLST completed: no Additional Instructions: Activity No activity restrictions Other Discharge Orders and Instructions Your port removal site is sutured. You should pull the gauze out tomorrow (12/28) and then place gauze over wound until heals completely. You should follow up with Dr. Najera in 1 week to see how wound looks and to discuss port placement. Follow Up: Schedule the following appointment(s) when you get home Epifanio Najera MD In 1 week. Specialty: Hematology & Oncology Why: For wound re-check Contact information [address] [place] [id number] VALERIY CARMONA MD . Specialty: Family Medicine Contact information [facility] [address] [place] [address] Discharge Physical Exam: Last 24 hour min/max Temp: 36.9 C (98.4 F) Temp Min: 36.7 C (98.1 F) Max: 36.9 C (98.4 F) Heart Rate: 75 Pulse Min: 71 Max: 78 Resp: 16 Resp Min: 16 Max: 16 BP: 127/67 BP Min: 110/65 Max: 140/74 SpO2: 100 % SpO2 Min: 97 % Max: 100 % Body mass index is 23.72 kg/m. General: thin well appearing woman in NAD. Cardiovascular: RRR, no murmurs Pulmonary: clear to ausculation. Abdominal: soft, nontender. G tube in place with ostomy attached draining gastric acid. No erythema, tenderness around G tube. Skin: Left anterior chest portacath site bandage with some bleeding on dressing without ten derness, redness or drainage. Neuro: Afocal, moving all extremities antigravity Psych: appropriate affect. Lines: none Raghu Jarrett M.D. Internal Medicine PGY-3 Pager [phone] Associated attestation - Lloyd Garcia MD - 12/27/2017 10:01 PM [facility] ATT[facility] Date of admission: 12/23/2017 11:11 PM Today's date: 12/27/2017 Hospital day 4 A resident assisted with documenting this service. I personally interviewed the patient and performed the ivey elements of the physical examination. I reviewed and verified all informa tion documented by the resident, Raghu Jarrett, and developed an updated assessment and plan. I agree with the documentation with the following additions/exceptions: Assessment/Plan: Mrs. Upton is a 57 year old female with metastatic cholangiocarcinoma (dx 2013) on palli ative chemotherapy, SBO s/p venting gastrostomy tube, admitted with recurrent klebsiella bunny teremia. Given two episodes of bacteremia with same organism (growing from blood and port), high suspicion for port colonization. ID recommended removal, performed at bedside by EGS on 12/27. Plan for 7 days of ciprofloxacin from day of removal to remove port followed by 7 da ys of ciprofloxacin (END: 01/03). I spent 15 minutes of floor/unit time in care of this patient, of which greater than 50% wa s spent counseling and coordinating care for the patient, including counseling patient on wo und care for port and follow up plan. Lloyd Garcia MD Skin Pass Operatorground intelligence officer Clinical Hospitalist and Medicine Teaching Service Division of [facility] Medicine Pager [phone] Patients Hospital Problem List: Active Hospital Problems 1) *Bacteremia due to Klebsiella pneumoniae 2) JULY (acute kidney injury) (HCC) 3) Cholangiocarcinoma (HCC) 4) Chronic use of opiate drugs therapeutic purposes 5) Hx of small bowel obstruction 6) Gastrostomy tube in place (HCC) 7) Insomnia 8) Moderate protein-calorie malnutrition (HCC) 9) CRBSI (catheter-related bloodstream infection) documented in this encounter Discharge Instructions Discharge Instr - Diet Llody Garcia MD - 12/27/2017 12:40 PM PST{Diet Instructions:18 330} Discharge Instr - Diet (facility) Lloyd Garcia MD - 12/27/2017 12:40 PM PST{Diet Inst ructions:91958} Discharge Instr - Activity (facility) Lloyd Garcia MD - 12/27/2017 12:40 PM PST{Activ ity Orders:02712} Additional Instructions Lloyd Garcia MD - 12/27/2017 12:39 PM PST{Additional Instruct ions AVS:48679} Opioid Pain Management {Opioid pain medication plan:80252} documented in this encounter Medications at Time of Discharge + + + +---------+ + + | Medication | Sig | Dispensed | Refills | Start | End Date | | | | | | Date | | + + + +---------+ + + | ciprofloxacin HCl | Take 1 tablet by | 13 | 0 | 12/28/19 | | | (CIPRO) 500 mg oral | mouth every twelve | tablet | | 18 | | | tabletIndications: | hours. Indications: | | | | | | port infection | port infection | | | | | + + + +---------+ + + | docusate sodium | Take 1 capsule by | 60 | 2 | 06/30/19 | | | (COLACE) 100 mg oral | mouth two times | capsule | | 15 | | | capsule | daily. | | | | | + + + +---------+ + + | fentaNYL 100 | Apply 1 patch to | | 0 | 12/27/19 | | | mcg/hr transdermal | skin every | | | 18 | | | patch | seventy-two hours. | | | | | | | Please remove old | | | | | | | patch prior to | | | | | | | placing a new one. | | | | | + + + +---------+ + + | HYDROmorphone 1 | Take by mouth every | | 0 | | | | mg/mL oral | three hours as | | | | | | liquidIndications: | needed. Indications: | | | | | | unknown [...] + + +---------+ + + | LORazepam 1 mg | Take 1.5 mg by | | 0 | 10/29/19 | | | oral tablet | mouth. | | | 18 [...] + + +---------+ + + | naloxone 4 | Instill 1 spray into | 2 each | 0 | 12/27/ | | | mg/actuation nasal | nose as needed for | | | 18 | | | spray,non-aerosol | suspected opioid | | | | [...] + + +---------+ + + | ondansetron ODT 4 | Dissolve 4 mg on | | 0 | | | | mg oral | tongue and swallow | | | | | | tablet,disintegratin | every twelve hours | | | | | | gIndications: | as needed. | | | | | | unknown home dose | Indications: unknown | | | | | | | home dose | | | | | + + + +---------+ + + | oxyCODONE, | Take 1 tablet by | 30 | 0 | 07/24/19 | | | immediate release, 5 | mouth every six | tablet | | 15 | | | mg oral tablet | hours as needed. | | | | | + + + +---------+ + + | polyethylene | Take 17 g by mouth | 119 g | 3 | 07/24/19 | | | glycol (MIRALAX) 17 | once daily. | | | 15 | | | gram/dose oral | | | | | | | powder | | | | | | + + + +---------+ + + documented as of this encounter Progress Notes Myriam Holt MD - 12/26/2017 8:27 PM PSTFormatting of this note might be different from jovon dutton. [facility] Progress Note 12/26/2017 Admit Date: 12/23/2017 Attending Physician: Dr. Garcia 24 Hour Events/ Subjective: -no complaints, would like to start her chemotherapy as soon as possible, is very hopeful t hat she can have her port removed jelani Objective: Vitals: Last 24 hour min/max Temp: 36.7 C (98.1 F) Temp Min: 36.4 C (97.5 F) Max: 37.2 C (99 F) Heart Rate: 83 Pulse Min: 76 Max: 96 Resp: 18 Resp Min: 12 Max: 20 BP: 91/57 BP Min: 82/54 Max: 91/57 SpO2: 99 % SpO2 Min: 95 % Max: 100 % Body mass index is 23.55 kg/m. Intake/Output Summary (Last 24 hours) at 12/26/172035 Last data filed at 12/26/171948 Gross per 24 hour Intake 260 ml Output 1950 ml Net -1690 ml Admission Weight: Weight: 60.3 kg (132 lb 15 oz) (12/23/172321) Physical Exam: General: pleasant vqh-xbbpw-lxtzapige woman lying in bed in no acute distress, good hygiene , appropriate appearance HEENT: normocephalic atraumatic Lungs: normal respiratory effort on room air Heart: regular rate and rhythm Abd: Nondistended, G tube present Ext: no edema Skin: no rashes on exposed skin Neuro: AAOx4, CN 2-12 intact, fluent speech without evidence of aphasia or dysarthria, move s all four extremities Psych: normal thought content, no evidence of auditory or visual hallucinations, eager to g et home Labs: Chemistries: Last 72 Hours (or 3 results) - Refreshable Recent Labs 12/23/17233212/24/1744012/25/17 0031 12/25/17 0649 12/25/17 0718 NA 144 -- 143 -- -- 142 K 3.7 -- 4.3 -- -- 4.4 CL 111* -- 112* -- -- 112* BICARB 22 -- 21 -- -- 24 BUN 16 -- 18 -- -- 25* CR 1.34* -- 1.26* -- -- 1.26* GLU 111* < > 87 101* 102* 95 CA 7.4* -- 7.4* -- -- 7.2* < > = values in this interval not displayed. CBC with diff last 72 hours (or 3 results) - Refreshable Recent Labs 12/23/17233212/24/1744012/25/1718 WBC 17.23* 22.23* 20.67* HB 9.7* 9.5* 8.1* HCT 30.2* 29.1* 25.2* PLT 51* 67* 43* NEUTROPERC 87.0* 88.8* 76.5* LYMPHPERC 1.7* 3.0* 1.7* MONOPERC 0.9* 2.1* 3.5 BASOPERC 0.0 0.2 0.0 EOSPERC 0.0* 0.0* 0.0* Meds: Current Facility-Administered Medications Medication Dose Route Frequency acetaminophen (TYLENOL) tablet 325-650 mg 325-650 mg oral Q4H PRN artificial tears (dextran 70-hypromellose) (NATURE'S TEARS) 0.1-0.3 % ophthalmic drops 1 drop 1 drop Both Eyes PRN bisacodyl (DULCOLAX) suppository 10 mg 10 mg rectal DAILY PRN ceFEPIme (MAXIPIME) injection 2 g 2 g intravenous Q12H fentaNYL (DURAGESIC) 100 mcg/hr 1 patch 1 patch transdermal Q72H HYDROmorphone (DILAUDID) liquid 1 mg 1 mg oral Q4H PRN influenza vaccine (FLUZONE) (PF) IM injection (age 3 years or greater) 0.5 mL 0.5 mL i ntramuscular Day of Discharge LORazepam (ATIVAN) tablet 1.5 mg 1.5 mg oral HS melatonin tablet 3 mg 3 mg oral HS PRN menthol-zinc oxide (CALAZIME) topical paste 0.2%-16.5% topical QID PRN metroNIDAZOLE (FLAGYL) IV 500 mg 500 mg intravenous Q8H naloxone (NARCAN) injection intravenous PRN oxyCODONE (immediate release) (ROXICODONE) tablet 5-15 mg 5-15 mg oral Q4H PRN Or oxyCODONE (immediate release) (ROXICODONE) liquid 5-10 mg 5-10 mg oral Q4H PRN polyethylene glycol (MIRALAX) packet 17 g 17 g oral DAILY polyethylene glycol (MIRALAX) packet 34 g 34 g oral TID PRN senna-docusate (SENOKOT S) 8.6-50 mg 2 tablet 2 tablet oral BID Microbiology: 11/07 blood culture at [facility] also grew klebsiella pneumoniae, when she had sepsis 12/23 blood culture at [facility] Klebsiella pneumoniae NGTD 12/23 blood cultures here Imaging: No new imaging Hospital problem list: Patient Active Problem List Diagnosis Date Noted Bacteremia due to Gram-negative bacteria 12/24/2017 Priority: 1 JULY (acute kidney injury) (HCC) 12/24/2017 Priority: 2 Cholangiocarcinoma (HCC) 04/27/2012 Priority: 3 Overview Note: -Diagnosed 2012. Followed by Dr. Ragland at [facility] in [place]. -04/26/2012: R0 Resection. -05/31/2012-09/03/2012 Chemotherapy: Xeloda/gemictabine x4 cycles. -10/04/2012: XRT with Xeloda -06/07/2014: relapse s/p complete resection. -07/29/2014-11/29/2014 Chemotherapy: Cisplatin/Gemcitabine -03/15/2016: Relapse -04/12/2016-08/09/2016 Chemotherapy: Cisplatin/Gemcitabine x6 cycles -02/25/2017-04/06/2017 Immunotherapy: Pembolizumab x4. -05/20/2017 Palliative Chemotherapy: Cisplatin/Gemcitabine Q3 weeks. Chronic use of opiate drugs therapeutic purposes 12/24/2017 Hx of small bowel obstruction 12/24/[address] (HCC) 12/24/2017 Insomnia 12/24/2017 Pelvic mass 05/21/2014 Perforation of nasal septum 06/03/2008 Aura Upton is a 57 y.o. woman with metastatic cholangiocarcinoma (dx 2012, on palliat jayjay chemotherapy gem/cisplatin), hx of SBO with gastrostomy tube (for venting), anxiety/inso mnia, and recent admission for sepsis of unclear etiology who was admitted to the MICU for s eptic shock found to have gram negative bacteremia and concern for infected portacath. # klebsiella pneumoniae infected portacath # septic shock -- resolved # gram negative bacteremia, NGTD since 12/23 Has had bacteremia/sepsis at least twice with klebsiella pneumoniae when her port has been used. Records per [facility] from 11/07 and 12/23. Was on antibiotics before arriv ing here, NGTD on her current blood cultures. Placed in 2014. She has only had one port. - stop cefepime, start cipro as below - NPO at midnight in case there's any chance she can have procedure 12/27, patient very hop eful for this - EGS consult, appreciate recs - ID consulted, appreciate recs: cipro 750 BID now and for 7 days post recommended port rem oval - coordinate with outpt oncologist, Dr. Ragland, plan for new port placement once bacter emia resolved # JULY (unclear baseline sCr ?~0.8) Pre-renal vs ATN in setting of brief hypotension during bacteremia. - monitor - encourage PO fluid intake, consider IV fluids - avoid nephrotoxic agents # mild mixed hepatocellular and cholestatic liver injury -- improving Unclear etiology as no ductal dilatation concerning for obstruction due to mass, stone, or stricture. No recent medications. Possibly due to acute hypotension. Given improvement and l ack of exposure hx, will defer and viral hepatitis work up at this time. - trend LFTs # metastatic cholangiocarcinoma (unclear staging but at IIIB at time of dx in 2012) On palliative gemcitabine and cisplatin q3w and missed cycle on 12/23. Followed by Dr Arley ramirez - update Dr. Ragland in [place] on Tuesday # thrombocytopenia Likely chemotherapy related cytopenias. Above transfusion threshold without bleeding - tranfuse for plt <10 or <50 if bleeding # normocytic anemia Likely chemotherapy related cytopenia from bone marrow suppression. Above transfusion thres old without bleeding. S/p 1 unit pRBCs on 12/24 for Hgb 7 with hypotension. - trend Hgb, transfuse for hemoglobin <7 # hx of SBO # gastrostomy tube Unclear hx but potentially due to metastatic obstruction vs opiate related. Required gastro stomy tube for venting and TPN at the time. Pt enjoys abiliy to vent G tube and has made GI sx much more managable with minimal nausea. - daily G tube dressing changes to px skin breakdown - okay to vent G tube prn - ondansetron prn nausea - bowel regimen # hypoalbuminemia Likely due to malnutrition in setting of malignancy. - nutrition consult # malignant pain No new worsening pain. No oversedation - continue home fentanyl patch 100 mcg q72h (last placed 12/23) - continue home dilaudid 1 mg q3h prn - stop IV dilaudid - bowel regimen # insomnia # anxiety - continue nightly lorazepam - monitor for oversedation with opiates and benzos # Prophylaxis - Analgesia: tylenol PRN, dilaudid prn, fentanyl patch - Sedation: nightly lorazepam - HOB position: ad mary - Ulcer ppx: n/i - Glycemic control: n/i - Bowel Care: miralax and senna mayelin, more PRN Code: FULL CODE Dispo: pending port source control and outpatient antibiotic plan, likely 12/27 -12/29 Surrogate Decision Maker Primary Surrogate Decision Maker Poncho Oquendo [phone] Patient was staffed with my attending Dr. Garcia who agrees with my assessment and plan unl ess otherwise indicated. Myriam Holt MD 12/25/2017 PGY1 physician [id number] Associated attestation - Lloyd Garcia MD - 12/26/2017 9:53 PM PSTGENERAL MEDICINE ND OGRESS NOTE ATTESTATION Date of admission: 12/23/2017 11:11 PM Hospital day 3 A resident assisted with documenting this service. I personally interviewed the patient and performed the ivey elements of the physical examination. I reviewed and verified all informa tion documented by the resident, Myriam Holt, and developed an updated assessment and plan. I agree with the documentation with the following additions/exceptions: Assessment/Plan: 57 year old female with metastatic cholangiocarcinoma (dx 2013) on palliative chemotherapy, SBO s/p venting gastrostomy tube, admitted with recurrent Klebsiella bacteremia. Given two episodes of bacteremia with same organism, high suspicion for port colonization. Appreciate ID recs. Plan to remove port followed by 7 days of ciprofloxacin. Consult EGS for assistance . Will need to arrange with oncologist for new port placement. I spent 38 minutes of floor/unit time in care of this patient, of which greater than 50% wa s spent counseling and coordinating care for the patient, including counseling patient on pl an of care for port removal, documenting, reviewing records. Lloyd Garcia MD Skin Pass Operatorground intelligence officer Clinical Hospitalist and Medicine Teaching Service Division of [facility] Medicine Pager [phone] Patients Hospital Problem List: Active Hospital Problems 1) *Bacteremia due to Gram-negative bacteria 2) JULY (acute kidney injury) (HCC) 3) Chronic use of opiate drugs therapeutic purposes 4) Hx of small bowel obstruction 5) Gastrostomy tube in place (HCC) 6) Insomnia 7) Moderate protein-calorie malnutrition (HCC) Myriam Holt MD - 12/25/2017 10:08 AM PSTFormatting of this note might be different from e original. [facility] Progress Note 12/25/2017 Admit Date: 12/23/2017 Hospital Day: 2 Attending Physician: Dr. Marbin Espinoza 24 Hour Events/ Subjective: -transferred to [facility] from intensive care -"take out my port and send me home" (she wants to go home on home antibiotics) Objective: Vitals: Last 24 hour min/max Temp: 36.7 C (98.1 F) Temp Min: 36.4 C (97.5 F) Max: 37.2 C (99 F) Heart Rate: 83 Pulse Min: 76 Max: 96 Resp: 18 Resp Min: 12 Max: 20 BP: 91/57 BP Min: 82/54 Max: 91/57 SpO2: 99 % SpO2 Min: 95 % Max: 100 % Body mass index is 23.55 kg/m. Intake/Output Summary (Last 24 hours) at 12/25/17 0955 Last data filed at 12/25/17 0400 Gross per 24 hour Intake 1115 ml Output 1475 ml Net -360 ml Admission Weight: Weight: 60.3 kg (132 lb 15 oz) (12/23/172) Physical Exam: General: pleasant ovq-jurue-kzcuvhkbn woman lying in bed in no acute distress, good hygiene , appropriate appearance HEENT: normocephalic atraumatic Lungs: normal respiratory effort on room air Heart: regular rate and rhythm Abd: Nondistended, G tube present Ext: no edema Skin: no rashes on exposed skin Neuro: AAOx4, CN 2-12 intact, fluent speech without evidence of aphasia or dysarthria, move s all four extremities Psych: normal thought content, no evidence of auditory or visual hallucinations, eager to g et home Labs: BUN rising mildly Liver enzymes downtrending Chemistries: Last 72 Hours (or 3 results) - Refreshable Recent Labs 12/23/17233212/24/1744012/25/17 0031 12/25/17 0649 12/25/17 0718 NA 144 -- 143 -- -- 142 K 3.7 -- 4.3 -- -- 4.4 CL 111* -- 112* -- -- 112* BICARB 22 -- 21 -- -- 24 BUN 16 -- 18 -- -- 25* CR 1.34* -- 1.26* -- -- 1.26* GLU 111* < > 87 101* 102* 95 CA 7.4* -- 7.4* -- -- 7.2* < > = values in this interval not displayed. CBC with diff last 72 hours (or 3 results) - Refreshable Recent Labs 12/23/173 12/24/1744012/25/17 0718 WBC 17.23* 22.23* 20.67* HB 9.7* 9.5* 8.1* HCT 30.2* 29.1* 25.2* PLT 51* 67* 43* NEUTROPERC 87.0* 88.8* 76.5* LYMPHPERC 1.7* 3.0* 1.7* MONOPERC 0.9* 2.1* 3.5 BASOPERC 0.0 0.2 0.0 EOSPERC 0.0* 0.0* 0.0* Lab Orders - In Process (Through next 24h) Start Ordered 12/25/17 0500 CULTURE, BLOOD BACTI & YEAST ONCE 12/24/17 2312 12/23/17 2330 CULTURE, BLOOD BACTI & YEAST ONCE 12/23/17 2321 12/23/17 2330 CULTURE, BLOOD BACTI & YEAST ONCE 12/23/17 2321 Meds: Current Facility-Administered Medications Medication Dose Route Frequency acetaminophen (TYLENOL) tablet 325-650 mg 325-650 mg oral Q4H PRN artificial tears (dextran 70-hypromellose) (NATURE'S TEARS) 0.1-0.3 % ophthalmic drops 1 drop 1 drop Both Eyes PRN bisacodyl (DULCOLAX) suppository 10 mg 10 mg rectal DAILY PRN ceFEPIme (MAXIPIME) injection 2 g 2 g intravenous Q12H fentaNYL (DURAGESIC) 100 mcg/hr 1 patch 1 patch transdermal Q72H HYDROmorphone (DILAUDID) liquid 1 mg 1 mg oral Q4H PRN influenza vaccine (FLUZONE) (PF) IM injection (age 3 years or greater) 0.5 mL 0.5 mL i ntramuscular Day of Discharge LORazepam (ATIVAN) tablet 1.5 mg 1.5 mg oral HS melatonin tablet 3 mg 3 mg oral HS PRN menthol-zinc oxide (CALAZIME) topical paste 0.2%-16.5% topical QID PRN metroNIDAZOLE (FLAGYL) IV 500 mg 500 mg intravenous Q8H naloxone (NARCAN) injection intravenous PRN oxyCODONE (immediate release) (ROXICODONE) tablet 5-15 mg 5-15 mg oral Q4H PRN Or oxyCODONE (immediate release) (ROXICODONE) liquid 5-10 mg 5-10 mg oral Q4H PRN polyethylene glycol (MIRALAX) packet 17 g 17 g oral DAILY polyethylene glycol (MIRALAX) packet 34 g 34 g oral TID PRN senna-docusate (SENOKOT S) 8.6-50 mg 2 tablet 2 tablet oral BID Microbiology: 12/23 blood culture at [facility] gram negative bacilli NGTD 12/23 blood cultures here Imaging: No new imaging Hospital problem list: Patient Active Problem List Diagnosis Date Noted Bacteremia due to Gram-negative bacteria 12/24/2017 Priority: 1 JUYL (acute kidney injury) (HCC) 12/24/2017 Priority: 2 Cholangiocarcinoma (HCC) 04/27/2012 Priority: 3 Overview Note: -Diagnosed 2012. Followed by Dr. Ragland at [facility] in [place]. -04/26/2012: R0 Resection. -05/31/2012-09/03/2012 Chemotherapy: Xeloda/gemictabine x4 cycles. -10/04/2012: XRT with Xeloda -06/07/2014: relapse s/p complete resection. -07/29/2014-11/29/2014 Chemotherapy: Cisplatin/Gemcitabine -03/15/2016: Relapse -04/12/2016-08/09/2016 Chemotherapy: Cisplatin/Gemcitabine x6 cycles -02/25/2017-04/06/2017 Immunotherapy: Pembolizumab x4. -05/20/2017 Palliative Chemotherapy: Cisplatin/Gemcitabine Q3 weeks. Chronic use of opiate drugs therapeutic purposes 12/24/2017 Hx of small bowel obstruction 12/24/[address] (HCC) 12/24/2017 Insomnia 12/24/2017 Pelvic mass 05/21/2014 Perforation of nasal septum 06/03/2008 Aura Upton is a 57 y.o. woman with metastatic cholangiocarcinoma (dx 2012, on palliat jayjay chemotherapy gem/cisplatin), hx of SBO with gastrostomy tube (for venting), anxiety/inso mnia, and recent admission for sepsis of unclear etiology who was admitted to the MICU for s eptic shock found to have gram negative bacteremia and concern for infected portacath. # septic shock -- resolved # gram negative bacteremia Fever, leukocytosis, hypotension and concern for infection. + blood cultures from 12/23 [address] [facility]. Suspect source is from portacath given temporal relationship to accessing cath eter and active rigoring further supported by intermittent fevering at last hospitalization with portacath use despite no clear source. Unusual to be gm negative organism as catheters typically staph or strep but recent hospitalization increases risk. Initial mild elevation i n LFTs but without ductal dilatation making cholangitis less likely cause (though certainly at risk given hepatobiliary cancer). Other etiologies could include gut translocation in set ting of transient hypotension. Urinalysis bland. Recent hospitalization warrants Pseudomonal coverage for now until speciation is final. Discontinued vancomycin 12/24. - continue cefepime and metronidazole until speciation and sensitivities - f/u blood cultures here and [facility]: no new information this AM from [facility] - repeat blood culture x 1 in am - likely need 7-14 days of abx pending blood cultures, once sensitivities can consider villanueva sitioning to PO # concern for infected portacath Given temporal relationship to accessing catheter and active rigoring further supported by intermittent fevering at last hospitalization with portacath use despite no clear source. Gi marian clinical improvement with abx alone, no urgent need for removal but would need removal p rior to discharge and would like to coordinate with pt's oncologist regarding placement of n ew port given ongoing chemotherapy planned. - NPO today - EGS consult, appreciate recs - consider ID consult - find old blood culture results - coordinate with outpt oncologist, Dr. Ragland, plan for new port placement once bacter emia resolved - INR # JULY (unclear baseline sCr ?~0.8) Pre-renal vs ATN in setting of brief hypotension during bacteremia. - monitor - encourage PO fluid intake, consider IV fluids - avoid nephrotoxic agents # mild mixed hepatocellular and cholestatic liver injury -- improving Unclear etiology as no ductal dilatation concerning for obstruction due to mass, stone, or stricture. No recent medications. Possibly due to acute hypotension. Given improvement and l ack of exposure hx, will defer and viral hepatitis work up at this time. - trend LFTs # metastatic cholangiocarcinoma (unclear staging but at IIIB at time of dx in 2012) On palliative gemcitabine and cisplatin q3w and missed cycle on 12/23. Followed by Dr Arley ramirez - update Dr. Ragland in [place] on Tuesday # thrombocytopenia Likely chemotherapy related cytopenias. Above transfusion threshold without bleeding - tranfuse for plt <10 or <50 if bleeding # normocytic anemia Likely chemotherapy related cytopenia from bone marrow suppression. Above transfusion thres old without bleeding. S/p 1 unit pRBCs on 12/24 for Hgb 7 with hypotension. - trend Hgb, transfuse for hemoglobin <7 # hx of SBO # gastrostomy tube Unclear hx but potentially due to metastatic obstruction vs opiate related. Required gastro stomy tube for venting and TPN at the time. Pt enjoys abiliy to vent G tube and has made GI sx much more managable with minimal nausea. - daily G tube dressing changes to px skin breakdown - okay to vent G tube prn - ondansetron prn nausea - bowel regimen # hypoalbuminemia Likely due to malnutrition in setting of malignancy. - nutrition consult # malignant pain No new worsening pain. No oversedation - continue home fentanyl patch 100 mcg q72h (last placed 12/23) - continue home dilaudid 1 mg q3h prn - stop IV dilaudid - bowel regimen # insomnia # anxiety - continue nightly lorazepam - monitor for oversedation with opiates and benzos # Prophylaxis - Feeding: NPO for potential procedure - Analgesia: tylenol PRN, dilaudid prn, fentanyl patch - Sedation: nightly lorazepam - Thromboppx: enoxaparin - HOB position: ad mary - Ulcer ppx: n/i - Glycemic control: n/i - Bowel Care: miralax and senna mayelin, miralax PRN and Code: FULL CODE Dispo: pending port source control and outpatient antibiotic plan, likely 12/26 or 12/27 Surrogate Decision Maker Primary Surrogate Decision Maker Poncho Oquendo [phone] Patient will be staffed with my attending physician, Dr. Marbin Espinoza, within 24 hours. Myriam Holt MD 12/25/2017 PGY1 physician [id number] Associated attestation - Marbin Espinoza MD - 12/25/2017 7:16 PM PSTI agree with bita carmen resident note. For additional information, please refer to my note from today's date. Marbin Espinoza MD Clinical Hospitalist & Medical Teaching Services [facility] Pager [phone] Smitha Paul MD - 12/24/2017 11:28 AM PSTFormatting of this note might be different fro m the original. MICU Attending Note Admission Date: 12/23/2017 Length of stay: 1 days ID: Aura Upton is a 57 y.o. female with metastatic cholangiocarcinoma (on palliative chemotherapy with gemcitabine/cisplatin q3wk) admitted to the MICU from [place] for suspec ashley septic shock. Present on admission: JULY, transaminitis 24 Hour Events: Admitted overnight with presumed septic shock Received cefepime and vanc, in addition to 3L fluid and 1U pRBC. Has not required pressors but BPs remain soft. Satting normal on RA Overnight, flagyl was added. Received additional IVF. RUQ US ordered as part of infectio us work up Current Facility-Administered Medications Medication Dose Route Frequency acetaminophen (TYLENOL) tablet 325-650 mg 325-650 mg oral Q4H PRN artificial tears (dextran 70-hypromellose) (NATURE'S TEARS) 0.1-0.3 % ophthalmic drops 1 drop 1 drop Both Eyes PRN bisacodyl (DULCOLAX) suppository 10 mg 10 mg rectal DAILY PRN ceFEPIme (MAXIPIME) injection 2 g 2 g intravenous Q12H fentaNYL (DURAGESIC) 100 mcg/hr 1 patch 1 patch transdermal Q72H heparin, porcine (PF) injection 5,000 Units 5,000 Units subcutaneous Q8H HYDROmorphone (DILAUDID) injection 0.2 mg 0.2 mg intravenous Q2H PRN melatonin tablet 3 mg 3 mg oral HS PRN menthol-zinc oxide (CALAZIME) topical paste 0.2%-16.5% topical QID PRN metroNIDAZOLE (FLAGYL) IV 500 mg 500 mg intravenous Q8H naloxone (NARCAN) injection intravenous PRN polyethylene glycol (MIRALAX) packet 17 g 17 g oral DAILY polyethylene glycol (MIRALAX) packet 34 g 34 g oral TID PRN senna-docusate (SENOKOT S) 8.6-50 mg 2 tablet 2 tablet oral BID vancomycin (VANCOCIN) IV 1,000 mg 15 mg/kg intravenous Q24H BCx x2 pending I personally reviewed the laboratory and radiology data from the last 24 hours. Pertinent Imaging: CXR: clear lungs, L sided indwelling catheter 12/24/17 vascular study of liver: General: The duplex scanner was used to examine the hepatic artery, inferior vena cava, sandy n, right and left portal veins, the hepatic veins, as well as the splenic vein and superior mesenteric vein. There is evidence of free fluid in the right and left upper quadrant of the abdomen. The hepatic artery is patent with a flow velocity of 149 cm/sec, a resistive index of 0.67. Flow was in the normal direction. The inferior vena cava is patent without evidence of thrombus with flow in the normal direc tion. The main, right, and left portal veins were all patent with flows in the expected direction . The portal vein measures 1.38 cm in diameter. The right, middle, and left hepatic veins were all patent with flows in the normal direct ion. The superior mesenteric and splenic veins are patent with flow in the normal direction and the splenic vein diameter is 0.78 cm. Conclusions: Patent portal, splenic, superior mesenteric and hepatic veins. No evidence of thrombus. The hepatic artery is also patent with a normal arterial resistance. ACTIVE DIAGNOSES: # severe sepsis - symptoms seemed to appear immediately after port was accessed. Suspect li ne infection. CXR without focal consolidation. # metastatic cholagniocarcinoma # anemia # leukocytosis # thrombocytopenia # JULY # transaminitis with normal bilirubin # status post ureteral stent # chronic pain ASSESSMENT AND PLAN: - check UA to complete septic work up (has h/o ureteral stent that was recently replaced) - no evidence of portal vein thrombosis. Bilirubin is normal, doubt clinical picture is con sistent with cholangitis. Will ask radiology to complete read on RUQ US that was done, comme nting on liver parenchyma an biliary tree. - if RUQ US read does not show evidence of infection, we will have very high suspicion of p ort as source of infection given recent hospitalization for sepsis that did not address indw elling line, along with strong SIRS response after port was accessed. If this is the case, w ill consult IR to remove PORT. Would need line holiday prior to permanent access being repla juan r. - continue home dose pain meds - transfuse for Hgb <7, plt <10 - full code - intermediate level of care ATTESTATION: I evaluated the patient at the bedside with the MICU team. Please see their n ote for a detailed rounding summary. I reviewed the documented findings, relevant data, and recent imaging. I agree with the assessment and plan as described in the resident's note w ith the following exceptions/additions as noted above. I spent a total of 25 minutes of time in the care of this patient, who is no longer critica lly ill. SMITHA PAUL MD [facility] [address] [place] [address] Brittany Crouch MD - 12/24/2017 6:14 AM PST [facility] MEDICAL ICU - PROGRESS NOTE Hospital Day: 1 | ICU Day: 1 ID/CC: Aura Upton is a 57 y.o. woman w/ metastatic cholangiocarcinoma (on palliative chemotherapy with gemcitabine/cisplatin q3wk) admitted to the MICU from [place] for suspe cted septic shock. Consultants: HIEN, Nutrition and Palliative Care 24 Hour Events: - softer BPs overnight - mild abdominal pain - added flagyl for GI source - Has gotten 4L of fluid since admission Subjective: Abdominal pain persists. She described in details feeling chills and febrile right after he r portacath was accessed yesterday. They used her portacath for the duration of her hospital ization at [facility] and continued to have intermittent fevers and chills while she was there. S he was frustrated with [facility] because they would only send her to SNF or home with hospice. S he is curious about her care. Here she denies suprapubic pain, flank pain, dysuria or increa sed urinary frequency. Denies cough, SOB, CP. Vital Signs: Cuff BP (!) 88/61 (12/24/17 1100) | BP Min: 77/54 Max: 106/72 Cuff MAP 70 mmHg (12/24/17 1100) | BP Mean Min: 63 mmHg Max: 83 mmHg Art Line BP | No Data Recorded Art Line MAP | No Data Recorded HR 96 (12/24/17 1100) | Pulse Min: 67 Max: 106 | Cardiac Rhythm: Normal Sinus Rhythm;Regu lar (12/24/17 1100) Temp 36.9 C (98.4 F) (12/24/17 0800) | Temp Min: 36.7 C (98.1 F) Max: 36.9 C (9 8.4 F) RR 20 (12/24/17 1100) | Resp Min: 10 Max: 28 SpO2 96 % (12/24/17 1100) | SpO2 Min: 93 % Max: 100 % O2 Device None (room air) (12/24/17 1100) | Cam/RASS Most Recent Value Overall CAM-ICU Negative RASS Scale 0 CPOT Intake/Output Summary (Last 24 hours) at 12/24/17 0700 Last data filed at 12/24/17 0613 Gross per 24 hour Intake 130 ml Output 1550 ml Net -1420 ml Intake/Output Summary (since admission) at 12/23/17 2311 Last data filed at 12/24/17 0613 Gross for the last 1 days Intake 130 ml Output 1550 ml Net since Admission -1420 ml BMI: 23.6 Weights 60.3 kg (132 lb 15 oz) (12/23/17 2322) 75.7 kg (166 lb 12.8 oz) (07/23/14 1607) Admit Wt: 60.3 kg (132 lb 15 oz) Physical Exam: General Appearance: no acute distress, speaking in full sentences HEENT: EOMI, MMM, sclera anicteric Respiratory: CTAB, no crackles or wheezes Cardiovascular: RRR, no murmurs/rubs/gallops Gastrointestinal: BS present, soft, mildly tender to palpation, G-tube with dressing c/d/i and non-erythematous Extremities: warm and well perfused, no edema Skin: No rashes or ulcers, no jaundice Neurologic: A&O, CN2-12 grossly intact Laboratories: Recent Labs 12/23/17 2333 12/24/17 0441 WBC 17.23* 22.23* HB 9.7* 9.5* HCT 30.2* 29.1* MCV 98.4 96.4 PLT 51* 67* NEUTROPHILCO 14.99* 19.72* LYMPHSABS 0.29* 0.67* MONOCYTECO 0.16 0.46 EOSCO 0.00 0.01 BASOPHILCO 0.00 0.05 IMGRANABS 1.79* 1.32* No results for input(s): INRPT, APTT, FIBRINOGEN in the last 720 hours. Recent Labs 12/23/17 2333 12/24/17 0441 NA 144 143 K 3.7 4.3 CL 111* 112* BICARB 22 21 BUN 16 18 CR 1.34* 1.26* CA 7.4* 7.4* ANIONGAP 11 10 Recent Labs 12/23/17 2333 12/23/17 2338 12/24/17 0441 GLU 111* 127* 87 Recent Labs 12/23/17 2333 12/24/17 0441 AST 214* 170* ALT 77* 72* TBILI 0.9 0.9 AP 243* 232* ALB 2.5* 2.2* TP 6.1* 6.1* Recent Labs 12/23/17 2333 LACTICACID 2.8 Lab Orders - In Process (Through next 24h) Lactate 2.8 Start Ordered 12/24/17 0430 CBC, WITH DIFFERENTIAL ONCE 12/24/17 0428 12/23/17 2330 CULTURE, BLOOD BACTI & YEAST ONCE 12/23/17 2321 12/23/17 2330 CULTURE, BLOOD BACTI & YEAST ONCE 12/23/17 2321 Microbiology: 12/23 Blood Culture x2: pending Imaging: OSH 12/23 CXR: patchy density in LL base with obscuration of the diaphragm consistent with P NA or atelectasis CXR 12/24: Minimal bibasilar subsegmental atelectasis. No focal lung consolidation. Liver US Doppler 12/24: Conclusions: Patent portal, splenic, superior mesenteric and hepatic veins. No evidence of thrombus. The hepatic artery is also patent with a normal arterial resistance. Liver US 12/24: pending EKG/Echocardiogram: *Rate 75, pr 160, Qtc 467. NSR Current Facility-Administered Medications Medication Dose Route Frequency Last Rate Current Facility-Administered Medications Medication Dose Route Frequency Last Rate ceFEPIme (MAXIPIME) injection 2 g 2 g intravenous Q12H fentaNYL (DURAGESIC) 100 mcg/hr 1 patch 1 patch transdermal Q72H heparin, porcine (PF) injection 5,000 Units 5,000 Units subcutaneous Q8H metroNIDAZOLE (FLAGYL) IV 500 mg 500 mg intravenous Q8H Stopped (12/24/17 0613) polyethylene glycol (MIRALAX) packet 17 g 17 g oral DAILY senna-docusate (SENOKOT S) 8.6-50 mg 2 tablet 2 tablet oral BID vancomycin (VANCOCIN) IV 1,000 mg 15 mg/kg intravenous Q24H Current Facility-Administered Medications Medication Dose Route Frequency Last Rate acetaminophen (TYLENOL) tablet 325-650 mg 325-650 mg oral Q4H PRN artificial tears (dextran 70-hypromellose) (NATURE'S TEARS) 0.1-0.3 % ophthalmic drops 1 drop 1 drop Both Eyes PRN bisacodyl (DULCOLAX) suppository 10 mg 10 mg rectal DAILY PRN HYDROmorphone (DILAUDID) injection 0.2 mg 0.2 mg intravenous Q2H PRN melatonin tablet 3 mg 3 mg oral HS PRN menthol-zinc oxide (CALAZIME) topical paste 0.2%-16.5% topical QID PRN naloxone (NARCAN) injection intravenous PRN polyethylene glycol (MIRALAX) packet 34 g 34 g oral TID PRN Assessment & Plan: Aura Upton is a 57 y.o. Woman w/ metastatic cholangiocarcinoma (on palliative chemoth erapy with gemcitabine/carboplatin q3wk) admitted to the MICU from [place] for suspected s eptic shock. Neurological # Pain - continue home fentanyl 100mcg/hr patch (replaced on 12/23) - IV dilaudid 0.2 PRN q2hrs - Naloxone PRN - APAP 325-650mg q4hr Cardiovascular # Hypotension - improving BP 80/60 with MAPs >65. Pt with good UOP and mentating well. Suspected pt Bp runs lower and can tolerate as long as MAP >65. 1L LR and 1 unit pRBCs. Do not think this is shock etiolog y - can consider additional fluid resuscitation Respiratory No issues GI / Nutrition #RUQ abdominal pain # transaminitis New 1 day onset of sharp RUQ pain associated with leukocytosis and 1 recorded temp at OSH. With known metastatic cholangiocarcinoma, concerned for intra-abdominal source. AST 170 and ALT 72 elevated mildly with elevated alkP 232, bili 0.9 further supoorting concern for bilia ry source. - f/u RUQ ultrasound and doppler of portal vein / Renal # JULY Cr 1.26, improved from 1.36 with 4L fluid resuscitation at OSH and here. Baseline likely ~ 0.9. - continue to monitor after fluid resuscitation - no urine studies at this time. Infectious Disease # Septic shock - resolving Presented with HD stable after receiving 3L at OSH. Reported temp to 103.1F after port acce ssed. S/p vanc and cefepime. Afebrile and HD stable in MICU. Unclear infectious source as r eport of fevers directly after assessing port on 12/23 or PNA given report of LLL consolidati on on OSH CXR, however pt without cough symptoms. Suspect biliary obstruction given known ch olangiocarcinoma and report of sharp RUQ pain so concern for abdominal source. Will assess w ith RUQ ultrasound. - continue IV Vanc 1gm qd, IV Cefepime 2gm, Flagyl 500mg q8hrs for broad coverage. - 1L additional L LR for Maps 67. - f/u blood cx--> narrow after results with sensitivities - UA ordered today to r/o urosepsis - Consider CT abdomen for potential abdominal source if RUQ ultrasound inconclusive. - Likely the source of infection is her portacath given the SIRS response when it was acces sed yesterday. We will r/o liver abscess/pathology given slightly elevated transaminases bef ore calling IR to pull her portacath Hematology / Oncology # Metastatic cholangiocarcinoma Receives gemcitabine/carboplatin q 3wks for palliation. Has not had chemo in over 6 wks dur to previous hospitalizations for sepsis of unknown origin. # Normocytic anemia Hgb 7.1 at OSH. Responded well to 1U pRBc as Hgb 9.5. Likely related to chemotherapy immuno suppression. - Transfuse Hgb <7. # Leukocytosis OSH WBC reported as 1.7 with 1500. WBC here is 17.3 > 22.2 in the setting of septic shock f rom unknown source. Do not have recent WBC levels, latest WBC as of 2016 show baseline 3.8 b ut unclear if this is during chemotherapy. - monitor CBC with diff - treating septic shock as listed above. #Thrombycytopenia Plts 67 up from 61 at OSH. - no concern for active bleed. Transfuse for plts <10. Endocrine No issues Present on admission Septic shock Consultants: Feeding: PO diet Analgesia: Hydromorphone, Fentanyl patch, APAP Sedation: None (RASS Goal 0 (alert and calm)) Thromboprophylaxis: heparin SC (Pharmacologic ppx contraindicated) Head of Bed: Ad mary Ulcer Prophylaxis: Not indicated Glycemic control: BS controlled < 180, insulin not indicated Mobility Goal: Ambulate Lines/Tubes/Drains/Airways: L port . 3 PIV, G- tube Code Status Code Status Full Code Surrogate Decision Maker Documentation: Poncho Oquendo, Brittany Dean MD Anesthesiology PGY-1 p: [id number] 12/24/2017, 6:14 AM Template created by DERREK 2017 Dagoberto Henderson MD - 12/23/2017 11:52 PM PSTMICU Attending Note I have personally reviewed the history and physical with the MICU housestaff, confirmed the salient elements of the history and independently confirmed findings. I agree with the del pisano's assessment and have participated in the creation of the plan of care. 57 yo with hypotension and fever (103) immediately after port access to receive chemotherap y (gemcitabine/carboplatin) for metastatic cholangiocarcinoma. Since arrival to [place] E D has received 4L fluid and 1 unit PRBC for HGB of 7. Upon arrival to MICU BP had stabilize d and she continued to be on room air. She is having RUQ abdominal pain since getting on th e plane for transfer. Dx: 1. Metastatic cholangiocarcinoma 2. Severe sepsis 3. Anemia 4. Abdominal pain Plan: Source of sepsis unclear at this time. Could either be abdomen or port. Given the f ever happened immediately with access of port and even prior to any infusion I am a little h esitant to say that the port is infected. Obviously if blood cultures are positive with sta ph this would need to be removed. I am more concerned that the abdomen could be the source. Will get an RUQ ultrasound to evaluate. Will cover for both MRSA and bowel source of seps is. Patient is stable for floor. Dagoberto Iniguez MD Pulmonary/Critical Care Medicine [id number] documented in this en counter Plan of Treatment Not on filedocumented as of this encounter Procedures + +--------+ + + + | Procedure Name | Priori | Date/Time | Associated Diagnosis | Comments | | | ty | | | | + +--------+ + + + | CAPILLARY BLOOD | Routin | 12/27/2017 | Sepsis, due to | Results for this | | GLUCOSE (NO CHG), | e | 11:51 AM | unspecified organism | procedure are in the | | POC | | PST | ([facility]) | results section. | + +--------+ + + + | CULTURE, CATH TIP | Routin | 12/27/2017 | | Results for this | | BACTI | e | 9:55 AM | | procedure are in the | | | | PST | | results section. | + +--------+ + + + | PROCEDURE NOTE | Routin | 12/27/2017 | | Results for this | | | e | 9:39 AM | | procedure are in the | | | | PST | | results section. | + +--------+ + + + | CAPILLARY BLOOD | Routin | 12/27/2017 | Sepsis, due to | Results for this | | GLUCOSE (NO CHG), | e | 8:49 AM | unspecified organism | procedure are in the | | POC | | PST | ([facility]) | results section. | + +--------+ + + + | CAPILLARY BLOOD | Routin | 12/27/2017 | Sepsis, due to | Results for this | | GLUCOSE (NO CHG), | e | 8:27 AM | unspecified organism | procedure are in the | | POC | | PST | ([facility]) | results section. | + +--------+ + + + | CBC (HEMOGRAM) ONLY | Routin | 12/27/2017 | | Results for this | | | e | 7:00 AM | | procedure are in the | | | | PST | | results section. | + +--------+ + + + | RENAL FUNCTION SET | Routin | 12/27/2017 | | Results for this | | (NA,K,CL,CO2,BUN,CRE | e | 7:00 AM | | procedure are in the | | AT,GLUC,CA,PHOS,ALB | | PST | | results section. | | ) | | | | | + +--------+ + + + | CBC ONLY | Routin | 12/27/2017 | | Results for this | | | e | 7:00 AM | | procedure are in the | | | | PST | | results section. | + +--------+ + + + | CAPILLARY BLOOD | Routin | 12/26/2017 | Sepsis, due to | Results for this | | GLUCOSE (NO CHG), | e | 10:35 PM | unspecified organism | procedure are in the | | POC | | PST | ([facility]) | results section. | + +--------+ + + + | CAPILLARY BLOOD | Routin | 12/26/2017 | Sepsis, due to | Results for this | | GLUCOSE (NO CHG), | e | 11:23 AM | unspecified organism | procedure are in the | | POC | | PST | ([facility]) | results section. | + +--------+ + + + | CAPILLARY BLOOD | Routin | 12/26/2017 | Sepsis, due to | Results for this | | GLUCOSE (NO CHG), | e | 10:12 AM | unspecified organism | procedure are in the | | POC | | PST | ([facility]) | results section. | + +--------+ + + + | RENAL FUNCTION SET | Routin | 12/26/2017 | | Results for this | | (NA,K,CL,CO2,BUN,CRE | e | 7:31 AM | | procedure are in the | | AT,GLUC,CA,PHOS,ALB | | PST | | results section. | | ) | | | | | + +--------+ + + + | CAPILLARY BLOOD | Routin | 12/26/2017 | Sepsis, due to | Results for this | | GLUCOSE (NO CHG), | e | 12:14 AM | unspecified organism | procedure are in the | | POC | | PST | ([facility]) | results section. | + +--------+ + + + | CAPILLARY BLOOD | Routin | 12/25/2017 | Sepsis, due to | Results for this | | GLUCOSE (NO CHG), | e | 1:41 PM | unspecified organism | procedure are in the | | POC | | PST | ([facility]) | results section. | + +--------+ + + + | CULTURE, BLOOD BACTI | Routin | 12/25/2017 | | Results for this | | & YEAST [facility] | e | 7:18 AM | | procedure are in the | | | | PST | | results section. | + +--------+ + + + | RBC MORPHOLOGY | Routin | 12/25/2017 | | Results for this | | | e | 7:18 AM | | procedure are in the | | | | PST | | results section. | + +--------+ + + + | CBC AND AUTO DIFF | Urgent | 12/25/2017 | | Results for this | | | | 7:18 AM | | procedure are in the | | | | PST | | results section. | + +--------+ + + + | MANUAL DIFFERENTIAL | Routin | 12/25/2017 | | Results for this | | | e | 7:18 AM | | procedure are in the | | | | PST | | results section. | + +--------+ + + + | INR | Routin | 12/25/2017 | | Results for this | | | e | 7:18 AM | | procedure are in the | | | | PST | | results section. | + +--------+ + + + | CBC, WITH | Urgent | 12/25/2017 | | Results for this | | DIFFERENTIAL | | 7:18 AM | | procedure are in the | | | | PST | | results section. | + +--------+ + + + | COMPLETE METABOLIC | Urgent | 12/25/2017 | | Results for this | | SET | | 7:18 AM | | procedure are in the | | (NA,K,CL,CO2,BUN,CRE | | PST | | results section. | | AT,GLUC,CA,AST,ALT,B | | | | | | CIRILO TOTAL,ALK | | | | | | PHOS,ALB,PROT TOTAL) | | | | | + +--------+ + + + | CULTURE, BLOOD BACTI | Routin | 12/25/2017 | | Results for this | | & YEAST | e | 7:18 AM | | procedure are in the | | | | PST | | results section. | + +--------+ + + + | CAPILLARY BLOOD | Routin | 12/25/2017 | Sepsis, due to | Results for this | | GLUCOSE (NO CHG), | e | 6:49 AM | unspecified organism | procedure are in the | | POC | | PST | ([facility]) | results section. | + +--------+ + + + | CAPILLARY BLOOD | Routin | 12/25/2017 | Sepsis, due to | Results for this | | GLUCOSE (NO CHG), | e | 12:31 AM | unspecified organism | procedure are in the | | POC | | PST | ([facility]) | results section. | + +--------+ + + + | US ABDOMEN LIMITED | Routin | 12/24/2017 | | Results for this | | | e | 6:19 PM | | procedure are in the | | | | PST | | results section. | + +--------+ + + + | LIVER SET | Urgent | 12/24/2017 | | Results for this | | (AST,ALT,BILI | | 3:47 PM | | procedure are in the | | TOTAL,BILI | | PST | | results section. | | DIRECT,ALK | | | | | | PHOS,ALB,PROT TOTAL) | | | | | + +--------+ + + + | LACTATE | Urgent | 12/24/2017 | | Results for this | | | | 3:47 PM | | procedure are in the | | | | PST | | results section. | + +--------+ + + + | URINE, MICROSCOPIC | Routin | 12/24/2017 | | Results for this | | EXAM | e | 12:20 PM | | procedure are in the | | | | PST | | results section. | + +--------+ + + + | URINE SCREEN FOR | Routin | 12/24/2017 | | Results for this | | CULTURE | e | 12:20 PM | | procedure are in the | | | | PST | | results section. | + +--------+ + + + | COINPLUS LAB PORTAL / | Routin | 12/24/2017 | | Results for this | | HEPATIC DUPLEX | e | 10:23 AM | | procedure are in the | | | | PST | | results section. | + +--------+ + + + | X-RAY PORTABLE CHEST | Routin | 12/24/2017 | | Results for this | | 1 VIEW | e | 9:01 AM | | procedure are in the | | | | PST | | results section. | + +--------+ + + + | VANCOMYCIN, RANDOM | Urgent | 12/24/2017 | | Results for this | | | | 8:25 AM | | procedure are in the | | | | PST | | results section. | + +--------+ + + + | RBC MORPHOLOGY | Routin | 12/24/2017 | | | | | e | 4:41 AM | | | | | | PST | | | + +--------+ + + + | CBC AND AUTO DIFF | Urgent | 12/24/2017 | | Results for this | | | | 4:41 AM | | procedure are in the | | | | PST | | results section. | + +--------+ + + + | CBC, WITH | Urgent | 12/24/2017 | | Results for this | | DIFFERENTIAL | | 4:41 AM | | procedure are in the | | | | PST | | results section. | + +--------+ + + + | COMPLETE METABOLIC | Urgent | 12/24/2017 | | Results for this | | SET | | 4:41 AM | | procedure are in the | | (NA,K,CL,CO2,BUN,CRE | | PST | | results section. | | AT,GLUC,CA,AST,ALT,B | | | | | | CIRILO TOTAL,ALK | | | | | | PHOS,ALB,PROT TOTAL) | | | | | + +--------+ + + + | CULTURE, BLOOD BACTI | Urgent | 12/24/2017 | | Results for this | | & YEAST [facility] | | 1:00 AM | | procedure are in the | | | | PST | | results section. | + +--------+ + + + | CULTURE, BLOOD BACTI | Urgent | 12/24/2017 | | Results for this | | & YEAST | | 1:00 AM | | procedure are in the | | | | PST | | results section. | + +--------+ + + + | 12 LEAD ECG | Routin | 12/24/2017 | | Results for this | | | e | 12:00 AM | | procedure are in the | | | | PST | | results section. | + +--------+ + + + | CAPILLARY BLOOD | Routin | 12/23/2017 | Sepsis, due to | Results for this | | GLUCOSE (NO CHG), | e | 11:38 PM | unspecified organism | procedure are in the | | POC | | PST | ([facility]) | results section. | + +--------+ + + + | CULTURE, BLOOD BACTI | Urgent | 12/23/2017 | | Results for this | | & YEAST [facility] | | 11:34 PM | | procedure are in the | | | | PST | | results section. | + +--------+ + + + | CULTURE, BLOOD BACTI | Urgent | 12/23/2017 | | Results for this | | & YEAST | | 11:34 PM | | procedure are in the | | | | PST | | results section. | + +--------+ + + + | RBC MORPHOLOGY | Routin | 12/23/2017 | | Results for this | | | e | 11:33 PM | | procedure are in the | | | | PST | | results section. | + +--------+ + + + | CBC AND AUTO DIFF | Urgent | 12/23/2017 | | Results for this | | | | 11:33 PM | | procedure are in the | | | | PST | | results section. | + +--------+ + + + | MANUAL DIFFERENTIAL | Routin | 12/23/2017 | | Results for this | | | e | 11:33 PM | | procedure are in the | | | | PST | | results section. | + +--------+ + + + | CBC, WITH | Urgent | 12/23/2017 | | Results for this | | DIFFERENTIAL | | 11:33 PM | | procedure are in the | | | | PST | | results section. | + +--------+ + + + | COMPLETE METABOLIC | Urgent | 12/23/2017 | | Results for this | | SET | | 11:33 PM | | procedure are in the | | (NA,K,CL,CO2,BUN,CRE | | PST | | results section. | | AT,GLUC,CA,AST,ALT,B | | | | | | CIRILO TOTAL,ALK | | | | | | PHOS,ALB,PROT TOTAL) | | | | | + +--------+ + + + | ANTIBODY SCREEN | Routin | 12/23/2017 | | Results for this | | | e | 11:33 PM | | procedure are in the | | | | PST | | results section. | + +--------+ + + + | TYPE AND SCREEN | Routin | 12/23/2017 | | Results for this | | | e | 11:33 PM | | procedure are in the | | | | PST | | results section. | + +--------+ + + + | ABO & RH TYPE | Routin | 12/23/2017 | | Results for this | | | e | 11:33 PM | | procedure are in the | | | | PST | | results section. | + +--------+ + + + | LACTATE | Urgent | 12/23/2017 | | Results for this | | | | 11:33 PM | | procedure are in the | | | | PST | | results section. | + +--------+ + + + | OUTSIDE LAB - | | 12/23/2017 | | Results for this | | HEMATOLOGY | | 12:00 AM | | procedure are in the | | | | PST | | results section. | + +--------+ + + + | OUTSIDE LAB - | | 12/23/2017 | | Results for this | | HEMATOLOGY | | 12:00 AM | | procedure are in the | | | | PST | | results section. | + +--------+ + + + | OUTSIDE LAB - | | 12/23/2017 | | Results for this | | MICROBIO CULTURE | | 12:00 AM | | procedure are in the | | | | PST | | results section. | + +--------+ + + + | OUTSIDE LAB - | | 12/23/2017 | | Results for this | | CHEMISTRY | | 12:00 AM | | procedure are in the | | | | PST | | results section. | + +--------+ + + + | OUTSIDE CARDIOLOGY | | 12/23/2017 | | Results for this | | | | 12:00 AM | | procedure are in the | | | | PST | | results section. | + +--------+ + + + | OUTSIDE CARDIOLOGY | | 12/23/2017 | | Results for this | | | | 12:00 AM | | procedure are in the | | | | PST | | results section. | + +--------+ + + + | OUTSIDE CARDIOLOGY | | 12/23/2017 | | Results for this | | | | 12:00 AM | | procedure are in the | | | | PST | | results section. | + +--------+ + + + | OUTSIDE CARDIOLOGY | | 12/23/2017 | | Results for this | | | | 12:00 AM | | procedure are in the | | | | PST | | results section. | + +--------+ + + + | OUTSIDE LAB - | | 11/07/2017 | | Results for this | | HEMATOLOGY | | 12:00 AM | | procedure are in the | | | | PDT | | results section. | + +--------+ + + + documented in this encounter Results CAPILLARY BLOOD GLUCOSE (NO CHG), POC (12/27/2017 11:51 AM PST) + +-------+ + + + | Component | Value | Ref Range | Performed | Pathologist | | | | | At | Signature | + +-------+ + + + | BLOOD | 85 | 60 - 99 mg/dL | [facility] [...] | + + + + + | [facility] | [address] | [place], [place] | | | [facility] | [address] | [phone] | | | TESTS | | | | + + + + + CULTURE, CATH TIP BACTI (12/27/2017 9:55 AM PST) + + + + + + | Component | Value | Ref Range | Performed | Pathologist | | | | | At | Signature | + + + + + + | CULTURE | Klebsiella pneumoniae | | [facility] | | RESULT | (A) | | [facility] | | | | | [place] | | + + + + + + + + | Specimen | + + | Catheter tip - | | Portacath | + + + + + | Narrative | Performed At | + + + | Culture Report: > 15 colonies Klebsiella pneumoniae | [facility] | | [facility] | | [place] | + + + + + + + + | Organism | Antibiotic | Method | Susceptibility | + + + + + | Klebsiella | Amoxicillin/Clavulan | [facility] | Sensitive | | pneumoniae | ate | | | + + + + + | Klebsiella | Ampicillin | [facility] | Resistant | | pneumoniae | | | | + + + + + | Klebsiella | Cefazolin | [facility]CEPT[facility] | Sensitive | | pneumoniae | | | | + + + + + | Klebsiella | Ciprofloxacin | [facility]CEPT[facility] | Sensitive | | pneumoniae | | | | + + + + + | Klebsiella | Gentamicin | [facility]CEPT[facility] | Sensitive | | pneumoniae | | | | + + + + + | Klebsiella | Piperacillin/Tazobac | [facility]CEPT[facility] | Sensitive | | pneumoniae | samayoa | | | + + + + + | Klebsiella | Tobramycin | [facility]CEPT[facility] | Sensitive | | pneumoniae | | | | + + + + + | Klebsiella | Trimethoprim/Sulfa | [facility]CEPT[facility] | Sensitive | | pneumoniae | | | | + + + + + + + + + + | Performing | Address | City/State/Zipcode | Phone Number | | Organization | | | | + + + + + | [facility] | [address] | [place] [address] | | | [place] | | | | + + + + + PROCEDURE NOTE (12/27/2017 9:39 AM PST) + + + | Narrative | Performed At | + + + | Hollie Flowers MD 12/27/2017 9:49 AM [facility] IINPATIENT | | | PROCEDURE NOTE SUBJECTIVE: Aura Upton is a 57 y.o. | | | female who presents for lesion removal. We have already discussed | | | this procedure at a recent visit, including option of not performing | | | surgery, technique of surgery and potential for scarring. | | | OBJECTIVE: BP 127/67 | Pulse 75 | Temp 36.9 C (98.4 F) | RR 16 | | | | Ht 1.6 m (5' 3") | Wt 60.7 kg (133 lb 14.4 oz) | SpO2 100% | BMI | | | 23.72 kg/(m^2) Patient appears well. Vitals are normal. Skin: | | | C/D/I- non-erythematous Mentating normally ASSESSMENT: foreign | | | body- INFECTED PORT At 9:40AM (time), prior to the beginning of | | | the procedure, the team paused to verify the patient | | | | | | s identity, the procedure to be performed (in accordance with the | | | consent,) and the correct side/site. The patient was positioned | | | appropriately. All relevant images and results were properly labeled | | | and displayed. We addressed antibiotic prophylaxis and fluids for | | | irrigation as applicable to this patient. Any safety precautions | | | were addressed. The following team members were present during the | | | team pause: MARISEL REARDON MD; BROOKE RODRIGUEZ MD; HOLLIE FLOWERS MD | | | PLAN: After informed consent was obtained, using CHLORHEXIDINE for | | | cleansing and 1% Lidocaine with epinephrine for anesthetic, with | | | sterile technique, removal of the port was performed. An incision | | | was made along prior well healed scar. The catheter tubing was | | | identified and removed from the patient during valsalva. The port | | | was cut free and removed. No purulence was identified. The port | | | site was irrigated. Deep dermal sutures were placed. Nugauze | | | dressing is applied, and wound care instructions provided below. | | | Be alert for any signs of cutaneous infection. The procedure was | | | well tolerated without complications. Follow up: the specimen is | | | labeled and sent to pathology for evaluation. SPECIMEN: CATHETER | | | TIP FOR CULTURE. DRESSING INSTRUCTIONS: remove packing tomorrow. | | | Dry dressing changes as needed. OK to shower. | | + + + CAPILLARY BLOOD GLUCOSE (NO CHG), POC (12/27/2017 8:49 AM PST) + +-------+ + + + | Component | Value | Ref Range | Performed | Pathologist | | | | | At | Signature | + +-------+ + + + | BLOOD | 83 | 60 - 99 mg/dL | [facility] | | | GLUCOSE, | | [...] + | [facility] | [address] | [place], [place] | | | [facility] | [address] | [phone] | | | TESTS | | | | + + + + + CAPILLARY BLOOD GLUCOSE (NO CHG), POC (12/27/2017 8:27 AM PST) + +-------+ + + + | Component | Value | Ref Range | Performed | Pathologist | | | | | At | Signature | + +-------+ + + + | BLOOD | 65 | 60 - 99 mg/dL | [facility] [...] + | [facility] | [address] | [place], [place] | | | [facility] | [address] | [phone] | | | TESTS | | | | + + + + + CBC (HEMOGRAM) ONLY (12/27/2017 7:00 AM PST) + + + + + + | Component | Value | Ref Range | Performed | Pathologist | | | | | At | Signature | + + + + + + | WHITE CELL | 7.82 | 3.50 - 10.80 | [facility] | | | COUNT | | K/cu mm | LABORATORY | | | | | | SERVICES, | | | | | | CORE | | + + + + + + | RED CELL | 2.79 (L) | 4.00 - 5.20 | [facility] | | | COUNT | | M/cu mm | LABORATORY | | | | | | SERVICES, | | | | | | CORE | | + + + + + + | HEMOGLOBIN | 8.8 (L) | 12.0 - 16.0 | [facility] | | | | | g/dL | LABORATORY | | | | | | SERVICES, | | | | | | CORE | | + + + + + + | HEMATOCRIT | 27.5 (L) | 36.0 - 46.0 % | [facility] | | | | | | LABORATORY | | | | | | SERVICES, | | | | | | CORE | | + + + + + + | MCV | 98.6 | 80.0 - 100.0 fL | [facility] | | | | | | LABORATORY | | | | | | SERVICES, | | | | | | CORE | | + + + + + + | MCHC | 32.0 | 32.0 - 36.0 | [facility] | | | | | g/dL | LABORATORY | | | | | | SERVICES, | | | | | | CORE | | + + + + + + | RDW SD | 59.4 (H) | 35.1 - 46.3 fL | [facility] | | | | | | LABORATORY | | | | | | SERVICES, | | | | | | CORE | | + + + + + + | PLATELET | 46 (L) | 150 - 400 K/cu | [facility] | | | COUNT | | mm | LABORATORY | | | | | | SERVICES, | | | | | | CORE | | + + + + + + | MPV | 11.0 | 9.7 - 12.3 fL | [facility] [...] + + | Blood - Blood | | (substance) | + + + + + + + | Performing | Address | City/State/Zipcode | Phone Number | | Organization | | | | + + + + + | [facility] | [address] | [place] [address] | | | SERVICES, CORE | [address] | | | + + + + + RENAL FUNCTION SET (NA,K,CL,CO2,BUN,CREAT,GLUC,CA,PHOS,ALB ) (12/27/2017 7:00 AM PST) + +---------+ + + + | Component | Value | Ref Range | Performed | Pathologist | | | | | At | Signature | + +---------+ + + + | GLUCOSE, | 68 (L) | 70 - 99 mg/dL | [facility] | | | PLASMA | | | LABORATORY | | | (LAB) | | | SERVICES, | | | | | | CORE | | + +---------+ + + + | BUN, PLASMA | 18 | 6 - 20 mg/dL | [facility] | | | (LAB) | | | LABORATORY | | | | | | SERVICES, | | | | | | CORE | | + +---------+ + + + | CREATININE | 1.08 | 0.60 - 1.10 | [facility] | | | PLASMA | | mg/dL | LABORATORY | | | (LAB) | | | SERVICES, | | | | | | CORE | | + +---------+ + + + | EGFR | >60 | >60 mL/min | [facility] | | | - | | | LABORATORY | | | H[facility]GARIAN | | | SERVICES, | | | | | | CORE | | + +---------+ + + + | EGFR NON | 52 (L) | >60 mL/min | [facility] | | | -DIMAS | | | LABORATORY | | | RICAN | | | SERVICES, | | | | | | CORE | | + +---------+ + + + | SODIUM, | 144 | 136 - 145 | [facility] | | | PLASMA | | mmol/L | LABORATORY | | | (LAB) | | | SERVICES, | | | | | | CORE | | + +---------+ + + + | POTASSIUM, | 3.5 | 3.4 - 5.0 | [facility] | | | PLASMA | | mmol/L | LABORATORY | | | (LAB) | | | SERVICES, | | | | | | CORE | | + +---------+ + + + | CHLORIDE, | 110 (H) | 97 - 108 mmol/L | [facility] [...] | + +---------+ + + + | CALCIUM(ALB | 9.6 | 8.6 - 10.2 | [facility] | | | CORRECTED) | | mg/dL | LABORATORY | | | | | [...] +---------+ + + + | PHOSPHORUS, | 3.2 [...] +---------+ + + + | ANION | 12 (H) | 4 - 11 mmol/L | [facility] | | | GAP(ALB | | | LABORATORY | | | CORRECTED) | | | SERVICES, | | | | | | CORE | | + +---------+ + + + + + | Specimen | + + | Blood - Blood | | (substance) | + + + + + | [...] Rapidly changing kidney | | | function - Amputees, paraplegics, or other muscle-wasting diseses | | + + + + + + + + | Performing | Address | City/State/Zipcode | Phone Number | | Organization | | | | + + + + + | [facility] | [address] | [place] [address] | | | SERVICES, CORE | [address] | | | + + + + + CAPILLARY BLOOD GLUCOSE (NO CHG), POC (12/26/2017 10:35 PM PST) + +-------+ + + + | Component | Value | Ref Range | Performed | Pathologist | | | | | At | Signature | + +-------+ + + + | BLOOD | 79 | 60 - 99 mg/dL | [facility] [...] + + + | [facility] | [address] | [place], [place] | | | [facility] | [address] | [phone] | | | TESTS | | | | + + + + + CAPILLARY BLOOD GLUCOSE (NO CHG), POC (12/26/2017 11:23 AM PST) + +---------+ + + + | Component | Value | Ref Range | Performed | Pathologist | | | | | At | Signature | + +---------+ + + + | BLOOD | 108 (H) | 60 - 99 [...] [facility] | [address] | [place], [place] | | | [facility] | [address] | [phone] | | | TESTS | | | | + + + + + CAPILLARY BLOOD GLUCOSE (NO CHG), POC (12/26/2017 10:12 AM PST) + +-------+ + + + | Component | Value | Ref Range | Performed | Pathologist | | | | | At | Signature | + +-------+ + + + | BLOOD | 61 | 60 - 99 mg/dL | [facility] [...] | + + + + + | [facility] | [address] | [place], [place] | | | [facility] | [address] | [phone] | | | TESTS | | | | + + + + + RENAL FUNCTION SET (NA,K,CL,CO2,BUN,CREAT,GLUC,CA,PHOS,ALB ) (12/26/2017 7:31 AM PST) + + + + + + | Component | Value | Ref Range | Performed | Pathologist | | | | | At | Signature | + + + + + + | GLUCOSE, | 74 | 70 - 99 mg/dL | [facility] | | | PLASMA | | | LABORATORY | | | (LAB) | | | SERVICES, | | | | | | CORE | | + + + + + + | BUN, PLASMA | 28 (H) | 6 - 20 mg/dL | [facility] | | | (LAB) | | | LABORATORY | | | | | | SERVICES, | | | | | | CORE | | + + + + + + | CREATININE | 1.25 (H) | 0.60 - 1.10 | [facility] | | | PLASMA | | mg/dL | LABORATORY | | | (LAB) | | | SERVICES, | | | | | | CORE | | + + + + + + | EGFR | 54 (L) | >60 mL/min | [facility] | | | - | | | LABORATORY | | | HUNGARIAN | | | SERVICES, | | | | | | CORE | | + + + + + + | EGFR NON | 44 (L) | >60 mL/min | [facility] | | [...] + + + + | POTASSIUM, | 4.1 | 3.4 - 5.0 | [facility] | | | PLASMA | | mmol/L | LABORATORY | | | (LAB) | | | SERVICES, | | | | | | CORE | | + + + + + + | CHLORIDE, | 112 (H) | 97 - 108 mmol/L | [facility] | | | PLASMA | | | LABORATORY | | | (LAB) | | | SERVICES, | | | | | | CORE | | + + + + + + | TOTAL CO2, | 21 | 21 - 32 mmol/L | [facility] [...] + + + + + + | CALCIUM(ALB | 9.4 | 8.6 - 10.2 | [facility] | | | CORRECTED) | | mg/dL | LABORATORY | | | | | | SERVICES, | | | | | | CORE | | + + + + + + | ALBUMIN, | 2.3 (L) | 3.5 - 4.7 g/dL | [facility] | | | PLASMA | | | LABORATORY | | | (LAB) | | | SERVICES, | | | | | | CORE | | + + + + + + | PHOSPHORUS, | 2.3 (L) | 2.4 - 4.7 mg/dL | [...] + + | Blood - Blood | | (substance) | + + + + + | Narrative | Performed At | + + + | GFR is estimated using the MDRD equation recommended by the | [facility] | | National Kidney Disease Education Program. [...] Rapidly changing kidney | | | function - Amputees, paraplegics, or other muscle-wasting diseses | | + + + + + + + + | Performing | Address | City/State/Zipcode | Phone Number | | Organization | | | | + + + + + | [facility] | [address] | [place] [address] | | | [facility] | [address] | | | + + + + + CAPILLARY BLOOD GLUCOSE (NO CHG), POC (12/26/2017 12:14 AM PST) + +-------+ + + + | Component | Value | Ref Range | Performed | Pathologist | | | | | At | Signature | + +-------+ + + + | BLOOD | 95 | 60 - 99 mg/dL | [facility] - | | | GLUCOSE, | | [...] | [facility] | [address] | [place], [place] | | | [facility] | [address] | [phone] | | | TESTS | | | | + + + + + CAPILLARY BLOOD GLUCOSE (NO CHG), POC (12/25/2017 1:41 PM PST) + +-------+ + + + [...] + | [facility] | [address] | [place], [place] | | | [facility] | [facility] | [phone] | | | TESTS | | | | + + + + + RBC MORPHOLOGY (12/25/2017 7:18 AM PST) + + + + + + | Component | Value | Ref Range | Performed | Pathologist | | | | | At | Signature | + + + + + + | ANISOCYTOSI | 2+(25-100cells/HPF) | | [facility] | | | S | | | LABORATORY | | | | | | SERVICES, | | | | | | CORE | | + + + + + + | MACROCYTOSI | 2+(25-100cells/HPF) | | [facility] | | | S | | | LABORATORY | | | | | | SERVICES, | | | | | | CORE | | + + + + + + + + | Specimen | + + | Blood - Blood | | (substance) | + + + + + + + | Performing | Address | City/State/Zipcode | Phone Number | | Organization | | | | + + + + + | [facility] | [address] | [place] [address] | | | SERVICES, CORE | [address] | | | + + + + + MANUAL DIFFERENTIAL (12/25/2017 7:18 AM PST) + + + + + + | Component | Value | Ref Range | Performed | Pathologist | | | | | At | Signature | + + + + + + | NEUTROPHIL | 76.5 (H) | 50.0 - 70.0 % | [facility] | | | % | | | LABORATORY | | | | | | SERVICES, | | | | | | CORE | | + + + + + + | LYMPHOCYTE | 1.7 (L) | 18.0 - 42.0 % | [facility] | | | % | | | LABORATORY | | | | | | SERVICES, | | | | | | CORE | | + + + + + + | MONOCYTE % | 3.5 | 3.5 - 9.0 % | [facility] | | | | | | LABORATORY | | | | | | SERVICES, | | | | | | CORE | | + + + + + + | EOSINOPHIL | 0.0 (L) | 1.0 - 3.0 % | [facility] | | | % | | | LABORATORY | | | | | | SERVICES, | | | | | | CORE | | + + + + + + | BASOPHIL % | 0.0 | 0.0 - 2.0 % | [facility] | | | | | | LABORATORY | | | | | | SERVICES, | | | | | | CORE | | + + + + + + | IG% | 17.4 (H)Comment: | 0.0 - 1.0 % | [facility] | | | | Increased immature | | LABORATORY | | | | granulocytes(IG)define a | | SERVICES, | | | | left shift.IGs include | | CORE | | | | metamyelocytes, | | | | | | myelocytes and | | | | | | promyelocytes. Bands are | | | | | | included in the | | | | | | neutrophil count, not | | | | | | the IG count, except in | | | | | | neonates <=60 days old | | | | | | where bands are reported | | | | | | in a manual diff. | | | | + + + + + + | REACTIVE | 0.9 | 0.0 - 10.0 % | [facility] | | | LYMPHS % | | | LABORATORY | | | | | | SERVICES, | | | | | | CORE | | + + + + + + | NEUTROPHIL | 15.81 (H) | 1.80 - 7.70 | [facility] | | | # | | K/cu mm | LABORATORY | | | | | | SERVICES, | | | | | | CORE | | + + + + + + | LYMPHOCYTE | 0.35 (L) | 1.00 - 4.80 | [facility] | | | # | | K/cu mm | LABORATORY | | | | | | SERVICES, | | | | | | CORE | | + + + + + + | MONOCYTE # | 0.72 | 0.10 - 0.90 | [facility] | | | | | K/cu mm | LABORATORY | | | | | | SERVICES, | | | | | | CORE | | + + + + + + | EOSINOPHIL | 0.00 | 0.00 - 0.50 | [facility] | | | # | | K/cu mm | LABORATORY | | | | | | SERVICES, | | | | | | CORE | | + + + + + + | BASOPHIL # | 0.00 | 0.00 - 0.10 | [facility] | | | | | K/cu mm | LABORATORY | | | | | | SERVICES, | | | | | | CORE | | + + + + + + | IG# | 3.60 (H) | 0.00 - 0.10 | [facility] | | | | | K/cu mm | LABORATORY | | | | | | SERVICES, | | | | | | CORE | | + + + + + + | REACTIVE | 0.19 | K/cu mm | [facility] | | | LYMPHS # | | | LABORATORY | | | | | | SERVICES, | | | | | | CORE | | + + + + + + + + | Specimen | + + | Blood - Blood | | (substance) | + + + + + | Narrative | Performed At | + + + | New pediatric reference ranges for Lymphocyte % in effect July 28, | [facility] | | 2017. Increased immature granulocytes(IG)define a left shift.IGs | LABORATORY | | include metamyelocytes, myelocytes and promyelocytes. Bands are | SERVICES, CORE | | included in the neutrophil count, not the IG count, except in neonates | | | <=60 days old where bands are reported in a manual diff. | | + + + + + + + + | Performing | Address | City/State/Zipcode | Phone Number | | Organization | | | | + + + + + | [facility] | [address] | [place] [address] | | | SERVICES, CORE | [address] | | | + + + + + CULTURE, BLOOD BACTI & YEAST [facility] (12/25/2017 7:18 AM PST) + + + + + [...] Specimen | + + | Blood - Entire right | | upper arm (body | | structure) | + + + + + + + | Performing | Address | City/State/Zipcode | Phone Number | | Organization | | | | + + + + + | [facility] | [address] | [place] [address] | | | SERVICES, CORE | [address] | | | + + + + + CBC AND AUTO DIFF (12/25/2017 7:18 AM PST) + + + + + + | Component | Value | Ref Range | Performed | Pathologist | | | | | At | Signature | + + + + + + | WHITE CELL | 20.67 (H) | 3.50 - 10.80 | [facility] | | | COUNT | | K/cu mm | LABORATORY | | | | | | SERVICES, | | | | | | CORE | | + + + + + + | RED CELL | 2.52 (L) | 4.00 - 5.20 | [facility] | | | COUNT | | M/cu mm | LABORATORY | | | | | | SERVICES, | | | | | | CORE | | + + + + + + | HEMOGLOBIN | 8.1 (L) | 12.0 - 16.0 | [facility] | | | | | g/dL | LABORATORY | | | | | | SERVICES, | | | | | | CORE | | + + + + + + | HEMATOCRIT | 25.2 (L) | 36.0 - 46.0 % | [facility] | | | | | | LABORATORY | | | | | | SERVICES, | | | | | | CORE | | + + + + + + | MCV | 100.0 | 80.0 - 100.0 fL | [facility] | | | | | | LABORATORY | | | | | | SERVICES, | | | | | | CORE | | + + + + + + | MCHC | 32.1 | 32.0 - 36.0 | [facility] | | | | | g/dL | LABORATORY | | | | | | SERVICES, | | | | | | CORE | | + + + + + + | RDW SD | 62.6 (H) | 35.1 - 46.3 fL | [facility] | | | | | | LABORATORY | | | | | | SERVICES, | | | | | | CORE | | + + + + + + | PLATELET | 43 (L) | 150 - 400 K/cu | [facility] | | | COUNT | | mm | LABORATORY | | | | | | SERVICES, | | | | | | CORE | | + + + + + + | MPV | 12.8 (H) | 9.7 - 12.3 fL | [facility] [...] + + | Blood - Blood | | (substance) | + + + + + + + | Performing | Address | City/State/Zipcode | Phone Number | | Organization | | | | + + + + + | [facility] | [address] | [place] [address] | | | SERVICES, CORE | [address] | | | + + + + + INR (12/25/2017 7:18 AM PST) + + + + + + | Component | Value | Ref Range | Performed | Pathologist | | | | | At | Signature | + + + + + + | INR | 1.37 (H) | 0.90 - 1.20 INR | [facility] | | | | | | LABORATORY | | | | | | SERVICES, | | | | | | CORE | | + + + + + + + + | Specimen | + + | Blood - Blood | | (substance) | + + + + + | [...] | + + + + + | [facility] | [address] | [place] [address] | | | SERVICES, CORE | [address] | | | + + + + + COMPLETE METABOLIC SET (NA,K,CL,CO2,BUN,CREAT,GLUC,CA,AST,ALT,BILI TOTAL,ALK PHOS,ALB,PROT TOTAL) (12/25/2017 7:18 AM PST) + + + + + + | Component | Value | Ref Range | Performed | Pathologist | | | | | At | Signature | + + + + + + | GLUCOSE, | 95 | 70 - 99 mg/dL | [facility] | | | PLASMA | | | LABORATORY | | | (LAB) | | | SERVICES, | | | | | | CORE | | + + + + + + | BUN, PLASMA | 25 (H) | 6 - 20 mg/dL | [facility] | | | (LAB) | | | LABORATORY | | | | | | SERVICES, | | | | | | CORE | | + + + + + + | CREATININE | 1.26 (H) | 0.60 - 1.10 | [facility] | | | PLASMA | | mg/dL | LABORATORY | | | (LAB) | | | SERVICES, | | | | | | CORE | | + + + + + + | EGFR | 53 (L) | >60 mL/min | [facility] | | | - | | | LABORATORY | | | HUNGARIAN | | | SERVICES, | | | | | | CORE | | + + + + + + | EGFR NON | 44 (L) | >60 mL/min | [facility] | | | -DIMAS | | | LABORATORY | | | RICAN | | | SERVICES, | | | | | | CORE | | + + + + + + | SODIUM, | 142 | 136 - 145 | [facility] | | | PLASMA | | mmol/L | LABORATORY | | | (LAB) | | | SERVICES, | | | | | | CORE | | + + + + + + | POTASSIUM, | 4.4 | 3.4 - 5.0 | [facility] | | | PLASMA | | mmol/L | LABORATORY | | | (LAB) | | | SERVICES, | | | | | | CORE | | + + + + + + | CHLORIDE, | 112 (H) | 97 - 108 mmol/L | [facility] [...] + + + + | CALCIUM, | 7.2 (L) | 8.6 - 10.2 | [facility] | | | PLASMA | | mg/dL | LABORATORY | | | (LAB) | | | SERVICES, | | | | | | CORE | | + + + + + + | CALCIUM(ALB | 8.7 | 8.6 - 10.2 | [facility] | | | CORRECTED) | | mg/dL | LABORATORY | | | | | | SERVICES, | | | | | | CORE | | + + + + + + | BILIRUBIN | 0.9 | 0.3 - 1.2 mg/dL | [facility] | | | TOTAL | | | LABORATORY | | | | | | SERVICES, | | | | | | CORE | | + + + + + + | TOTAL | 5.7 (L) | 6.4 - 8.2 g/dL | [facility] [...] + + + | ALK PHOS | 176 (H) | 42 - 98 U/L | [facility] | | | | | | LABORATORY | | | | | | SERVICES, | | | | | | CORE | | + + + + + + | AST(SGOT) | 50 (H) | <=41 U/L | [facility] | | | | | | LABORATORY | | | | | | SERVICES, | | | | | | CORE | | + + + + + + | ALT (SGPT) | 38 | <=60 U/L | [facility] | | [...] + + | Blood - Blood | | (substance) | + + + + + | [...] Rapidly changing kidney | | | function - Amputees, paraplegics, or other muscle-wasting diseses | | + + + + + + + + | Performing | Address | City/State/Zipcode | Phone Number | | Organization | | | | + + + + + | [facility] | [address] | [place] [address] | | | SERVICES, CORE | [address] | | | + + + + + CAPILLARY BLOOD GLUCOSE (NO CHG), POC (12/25/2017 6:49 AM PST) + +---------+ + + + | Component | Value | Ref Range | Performed | Pathologist | | | | | At | Signature | + +---------+ + + + | BLOOD | 102 (H) | 60 - 99 mg/dL | [...] [facility] | [address] | [place], [place] | | | DG POINT OF CARE | [address] | [address] | | | TESTS | | | | + + + + + CAPILLARY BLOOD GLUCOSE (NO CHG), POC (12/25/2017 12:31 AM PST) + +---------+ + + + | Component | Value | Ref Range | Performed | Pathologist | | | | | At | Signature | + +---------+ + + + | BLOOD | 101 (H) | 60 - 99 mg/dL | [...] + | [facility] | [address] | [place], [place] | | | DG [place] [facility] | [address] | | | TESTS | | | | + + + + + US ABDOMEN LIMITED (12/24/2017 6:19 PM PST) + + | Specimen | + + | | + + + + + | Narrative | Performed At | + + + | EXAM: US Abdomen Limited HISTORY: hx of cholangioCA, elevated | [facility] | | AP/AST admitted with sepsis. Evaluate parenchyma and ductal dilitation | RADIOLOGY VOICE | | COMPARISON: CT 03/15/2016 TECHNIQUE: Limited abdominal | RECOGNITION 2 | | ultrasound performed of the right upper quadrant. FINDINGS: | | | Liver: Parenchyma is mildly heterogeneous. No discrete focal | | | lesion. Biliary: The gallbladder is absent. Sonographic Padilla | | | sign is negative. No biliary dilatation. The common duct measures 3 | | | mm in diameter. Other: No free fluid in the right upper quadrant. | | | IMPRESSION: No evidence of biliary ductal dilation. I have | | | personally reviewed the images and, if necessary, edited the report. | | | I agree with the report as now presented. Final signature: Jonas | | | Steve Lowe MD 12/24/2017 9:32 PM Preliminary: Tracy Barnett MD | | | Dictation initiated: Tracy Barnett MD 12/24/2017 6:55 PM | | + + + + + | Procedure Note | + + | Service Account, Clem Res In Interface - 12/24/2017 9:33 PM PST EXAM: US Abdomen | | Limited HISTORY: hx of cholangioCA, elevated AP/AST admitted with sepsis. Evaluate | | parenchyma and ductal dilitation COMPARISON: CT 03/15/2016 TECHNIQUE: Limited abdominal | | ultrasound performed of the right upper quadrant. FINDINGS: Liver: Parenchyma is mildly | | heterogeneous. No discrete focal lesion. Biliary: The gallbladder is absent. | | Sonographic Padilla sign is negative. No biliary dilatation. The common duct measures 3 | | mm in diameter. Other: No free fluid in the right upper quadrant. IMPRESSION: No | | evidence of biliary ductal dilation. I have personally reviewed the images and, if | | necessary, edited the report. I agree with the report as now presented. Final | | signature: Jonas Lowe MD 12/24/2017 9:32 PM Preliminary: Tracy Barnett MD | | Dictation initiated: Tracy Barnett MD 12/24/2017 6:55 PM | | | |Biliary: The gallbladder is absent. Sonographic Padilla sign is negative. No biliary dilatat ion. The common duct measures 3 mm in diameter. | | | |Other: No free fluid in the right upper quadrant. | | | |IMPRESSION: | | | |No evidence of biliary ductal dilation. | | | |I have personally reviewed the images and, if necessary, edited the report. I agree with th e report as now presented. | | | |Final signature: Jonas Lowe MD 12/24/2017 9:32 PM | |Preliminary: Tracy Barnett MD | |Dictation initiated: Tracy Barnett MD 12/24/2017 6:55 PM | + + + +---------+ + + | Performing | Address | City/State/Zipcode | Phone Number | | Organization | | | | + +---------+ + + | [facility] | | | | | VOICE RECOGNITION 2 | | | | + +---------+ + + LACTATE (12/24/2017 3:47 PM PST) + +-------+ + + + | Component | Value | Ref Range | Performed | Pathologist | | | | | At | Signature | + +-------+ + + + | LACTATE | 1.7 | mmol/L | [facility] | | | | | | LABORATORY | | | | | | SERVICES, | | | | | | CORE | | + +-------+ + + + + + | Specimen | + + | Blood - Blood | | (substance) | + + + + + | Narrative | Performed At | + + + | Reference Range: Venous blood: 0.5 - 2.2 mmol/L Critical | [facility] | | >= 4.0 mmol/L Arterial blood: 0.5 - 1.6 mmol/L Critical >= 4.0 | LABORATORY | | mmol/L | SERVICES, CORE | + + + + + + + + | Performing | Address | City/State/Zipcode | Phone Number | | Organization | | | | + + + + + | [facility] | [address] | [place] [address] | | | SERVICES, CORE | [address] | | | + + + + + LIVER SET (AST,ALT,BILI TOTAL,BILI DIRECT,ALK PHOS,ALB,PROT TOTAL) (12/24/2017 3:47 PM PST ) + +---------+ + + + | Component | Value | Ref Range | Performed | Pathologist | | | | | At | Signature | + +---------+ + + + | ALBUMIN, | 2.0 (L) | 3.5 - 4.7 g/dL | [facility] | | | PLASMA | | | LABORATORY | | | (LAB) | | | SERVICES, | | | | | | CORE | | + +---------+ + + + | BILIRUBIN | 0.8 | 0.3 - 1.2 mg/dL | [facility] | | | TOTAL | | | LABORATORY | | | | | | SERVICES, | | | | | | CORE | | + +---------+ + + + | BILIRUBIN | 0.4 (H) | 0.0 - 0.3 mg/dL | [facility] | | | DIRECT | | | LABORATORY | | | | | | SERVICES, | | | | | | CORE | | + +---------+ + + + | ALK PHOS | 178 (H) | 42 - 98 U/L | [facility] | | | | | | LABORATORY | | | | | | SERVICES, | | | | | | CORE | | + +---------+ + + + | AST(SGOT) | 80 (H) | <=41 U/L | [facility] | | | | | | LABORATORY | | | | | | SERVICES, | | | | | | CORE | | + +---------+ + + + | ALT (SGPT) | 46 | <=60 U/L | [facility] | | | | | | LABORATORY | | | | | | SERVICES, | | | | | | CORE | | + +---------+ + + + | TOTAL | 5.2 (L) | 6.4 - 8.2 g/dL | [facility] [...] | + +---------+ + + + | NICHO Francis CMNT | No Hemo | | [facility] | | | | | | LABORATORY | | | | | | SERVICES, | | | | | | CORE | | + +---------+ + + + + + | Specimen | + + | Blood - Blood | | (substance) | + + + + + + + | Performing | Address | City/State/Zipcode | Phone Number | | Organization | | | | + + + + + | [facility] | [address] | [place] [address] | | | SERVICES, CORE | [address] | | | + + + + + URINE, MICROSCOPIC EXAM (12/24/2017 12:20 PM PST) + +---------+ + + + | Component | Value | Ref Range | Performed | Pathologist | | | | | At | Signature | + +---------+ + + + | RED CELLS | 0 | 0 - 3 /hpf | [facility] | | | | | | LABORATORY | | | | | | SERVICES, | | | | | | CORE | | + +---------+ + + + | WHITE CELLS | 1 | 0 - 5 /hpf | [facility] | | | | | | LABORATORY | | | | | | SERVICES, | | | | | | CORE | | + +---------+ + + + | BACTERIA | None | None /hpf | [facility] | | | | | | LABORATORY | | | | | | SERVICES, | | | | | | CORE | | + +---------+ + + + | YEAST (LAB) | None | None /hpf | [facility] | | | | | | LABORATORY | | | | | | SERVICES, | | | | | | CORE | | + +---------+ + + + | SQUAMOUS | None | None, Few /hpf | [facility] | | | EPITHELIAL | | | LABORATORY | | | | | | SERVICES, | | | | | | CORE | | + +---------+ + + + | MUCOUS | None | None, Few /hpf | [facility] | | | | | | LABORATORY | | | | | | SERVICES, | | | | | | CORE | | + +---------+ + + + | TRICHOMONAS | None | None /hpf | [facility] | | | | | | LABORATORY | | | | | | SERVICES, | | | | | | CORE | | + +---------+ + + + | NON-SQUAMOU | Few (A) | None /hpf | [facility] | | | S EPITH | | | LABORATORY | | | | | | SERVICES, | | | | | | CORE | | + +---------+ + + + | HYALINE | 0 | 0 - 2 /lpf | [facility] | | | CASTS | | | LABORATORY | | | | | | SERVICES, | | | | | | CORE | | + +---------+ + + + | GRANULAR | 0 | 0 - 2 /lpf | [facility] | | | CASTS | | | LABORATORY | | | | | | SERVICES, | | | | | | CORE | | + +---------+ + + + | CELLULAR | 0 | <=0 /lpf | [facility] | | | CASTS | | | LABORATORY | | | | | | SERVICES, | | | | | | CORE | | + +---------+ + + + | TRIPLE P04 | None | None, Few /hpf | [facility] | | | CRYSTALS | | | LABORATORY | | | | | | SERVICES, | | | | | | CORE | | + +---------+ + + + | CALCIUM | None | None, Few /hpf | [facility] | | | OXALATE | | | LABORATORY | | | CRYSTAL | | | SERVICES, | | | | | | CORE | | + +---------+ + + + | URIC ACID | None | None, Few /hpf | [facility] | | | CRYSTALS | | | LABORATORY | | | | | | SERVICES, | | | | | | CORE | | + +---------+ + + + | AMORPHOUS | None | None, Few /hpf | [facility] | | | CRYSTALS | | | LABORATORY | | | | | | SERVICES, | | | | | | CORE | | + +---------+ + + + + + | Specimen | + + | Urine - Urine | | specimen collection, | | clean catch | | (procedure) | + + + + + + + | Performing | Address | City/State/Zipcode | Phone Number | | Organization | | | | + + + + + | [facility] | [address] | [place] [address] | | | SERVICES, SAM | [address] | | | + + + + + URINE SCREEN FOR CULTURE (12/24/2017 12:20 PM PST) + + + + + + | Component | Value | Ref Range | Performed | Pathologist | | | | | At | Signature | + + + + + + | URINE | Negative | Negative | [facility] | | | SCREEN FOR | | | LABORATORY | | | CULTURE | | | SERVICES, | | | | | | CORE | | + + + + + + + + | Specimen | + + | Urine - Urine | | specimen collection, | | clean catch | | (procedure) | + + + + + | Narrative | Performed At | + + + | Culture Screen Negative. Culture not indicated. | [facility] | | | LABORATORY | | | SERVICES, CORE | + + + + + + + + | Performing | Address | City/State/Zipcode | Phone Number | | Organization | | | | + + + + + | [facility] | [address] | [place] [address] | | | [facility] | [address] | | | + + + + + VASC LAB PORTAL / HEPATIC DUPLEX (12/24/2017 10:23 AM PST) + + | Specimen | + + | | + + + + + | Narrative | Performed At | + + + | General: The duplex scanner was used to examine the hepatic artery, | [facility] | | inferior vena cava, main, right and left portal veins, the hepatic | RADIOLOGY VASC | | veins, as well as the splenic vein and superior mesenteric vein. | [facility] | | There is fluid in the right and left upper quadrants of the abdomen. | | | The hepatic artery is patent with a flow velocity of 149 cm/sec, a | | | resistive index of 0.67. Flow was in the normal direction. The | | | inferior vena cava is patent without evidence of thrombus with flow in | | | the normal direction. The main, right, and left portal veins were | | | all patent with flows in the expected direction. The portal vein | | | measures 1.38 cm in diameter. The right, middle, and left hepatic | | | veins were all patent with flow in the normal direction. The | | | superior mesenteric and splenic veins are patent with flow in the | | | normal direction and the splenic vein diameter is 0.78 cm. | | | Conclusions: Patent portal, splenic, superior mesenteric and hepatic | | | veins. No evidence of thrombus. The hepatic artery is patent with | | | a normal arterial resistance. I have personally | | | reviewed the images and, if necessary, edited the report. I agree | | | with the report as now presented. | | + + + + + | Procedure Note | + + | Service Account, Clem Medina In Interface - 12/24/2017 4:55 PM PST General: The | | duplex scanner was used to examine the hepatic artery, inferior vena cava, main, right | | and left portal veins, the hepatic veins, as well as the splenic vein and superior | | mesenteric vein. There is fluid in the right and left upper quadrants of the abdomen. | | The hepatic artery is patent with a flow velocity of 149 cm/sec, a resistive index of | | 0.67. Flow was in the normal direction. The inferior vena cava is patent without | | evidence of thrombus with flow in the normal direction. The main, right, and left portal | | veins were all patent with flows in the expected direction. The portal vein measures | | 1.38 cm in diameter. The right, middle, and left hepatic veins were all patent with flow | | in the normal direction. The superior mesenteric and splenic veins are patent with flow | | in the normal direction and the splenic vein diameter is 0.78 cm. Conclusions: Patent | | portal, splenic, superior mesenteric and hepatic veins. No evidence of thrombus. The | | hepatic artery is patent with a normal arterial resistance. I have personally reviewed | | the images and, if necessary, edited the report. I agree with the report as now | | presented. | | | | | |I have personally reviewed the images and, if necessary, edited the report. I agree with t he report as now presented. | + + + +---------+ + + | Performing | Address | City/State/Zipcode | Phone Number | | Organization | | | | + +---------+ + + | [facility] | | | | | VASC US | | | | + +---------+ + + X-RAY PORTABLE CHEST 1 VIEW (12/24/2017 9:01 AM PST) + + | Specimen | + + | | + + + + + | Narrative | Performed At | + + + | EXAM: ND CHEST 1 VIEW HISTORY: fever COMPARISON: Outside | [facility] | | chest radiograph from 12/23/[address] from 03/15/2016. FINDINGS: | RADIOLOGY VOICE | | The cardiomediastinal contour is normal. There are minimal | RECOGNITION 2 | | bibasilar linear airspace opacities. There is no pleural effusion or | | | no appreciable pneumothorax. There is no pulmonary edema. No acute | | | osseous abnormality. There are partially visualized rosie and drains | | | projecting over the upper abdomen. IMPRESSION: Minimal | | | bibasilar subsegmental atelectasis. No focal lung consolidation. I | | | have personally reviewed the images and, if necessary, edited the | | | report. I agree with the report as now presented. Final | | | signature: Giovanni Muller MD 12/24/2017 1:04 PM Preliminary: Giovanni Blas | | MD Renzo Dictation initiated: Giovanni Muller MD 12/24/2017 1:03 | | | PM | | + + + + + | Procedure Note | + + | Service Account, Clem Res In Interface - 12/24/2017 1:05 PM PST EXAM: ND CHEST 1 | | VIEW HISTORY: fever COMPARISON: Outside chest radiograph from 12/23/[address] from | | 03/15/2016. FINDINGS: The cardiomediastinal contour is normal. There are minimal | | bibasilar linear airspace opacities. There is no pleural effusion or no appreciable | | pneumothorax. There is no pulmonary edema. No acute osseous abnormality. There are | | partially visualized rosie and drains projecting over the upper abdomen. IMPRESSION: | | Minimal bibasilar subsegmental atelectasis. No focal lung consolidation. I have | | personally reviewed the images and, if necessary, edited the report. I agree with the | | report as now presented. Final signature: Giovanni Muller MD 12/24/2017 1:04 PM | | Preliminary: Giovanni Muller MD Dictation initiated: Giovanni Muller MD 12/24/2017 1:03 PM | | | |IMPRESSION: | | | |Minimal bibasilar subsegmental atelectasis. No focal lung consolidation. | | | |I have personally reviewed the images and, if necessary, edited the report. I agree with th e report as now presented. | | | |Final signature: Giovanni Muller MD 12/24/2017 1:04 PM | |Preliminary: Giovanni Muller MD | |Dictation initiated: Giovanni Muller MD 12/24/2017 1:03 PM | + + + +---------+ + + | Performing | Address | City/State/Zipcode | Phone Number | | Organization | | | | + +---------+ + + | [facility] | | | | | VOICE RECOGNITION 2 | | | | + +---------+ + + VANCOMYCIN, RANDOM (12/24/2017 8:25 AM PST) + +-------+ + + + | Component | Value | Ref Range | Performed | Pathologist | | | | | At | Signature | + +-------+ + + + | VANCOMYCIN, | 12.2 | 5.0 - 50.0 | [facility] | | | RANDOM | | ug/mL | LABORATORY | | | | | | SERVICES, | | | | | | CORE | | + +-------+ + + + + + | Specimen | + + | Blood - Blood | | (substance) | + + + + + + + | Performing | Address | City/State/Zipcode | Phone Number | | Organization | | | | + + + + + | [facility] | [address] | [place] [address] | | | SERVICES, CORE | [address] | | | + + + + + RBC MORPHOLOGY (12/24/2017 4:41 AM PST) + + | Specimen | + + | Blood - Blood | | (substance) | + + + + + + + | Performing | Address | City/State/Zipcode | Phone Number | | Organization | | | | + + + + + | [facility] | [address] | [place] [address] | | | SERVICES, CORE | [address] | | | + + + + + CBC AND AUTO DIFF (12/24/2017 4:41 AM PST) + + + + + + | Component | Value | Ref Range | Performed | Pathologist | | | | | At | Signature | + + + + + + | WHITE CELL | 22.23 (H) | 3.50 - 10.80 | [facility] | | | COUNT | | K/cu mm | LABORATORY | | | | | | SERVICES, | | | | | | CORE | | + + + + + + | RED CELL | 3.02 (L) | 4.00 - 5.20 | [facility] | | | COUNT | | M/cu mm | LABORATORY | | | | | | SERVICES, | | | | | | CORE | | + + + + + + | HEMOGLOBIN | 9.5 (L) | 12.0 - 16.0 | [facility] [...] + + + + | MCV | 96.4 | 80.0 - 100.0 fL | [facility] | | | | | | LABORATORY | | | | | | SERVICES, | | | | | | CORE | | + + + + + + | MCHC | 32.6 | 32.0 - 36.0 | [facility] | | | | | g/dL | LABORATORY | | | | | | SERVICES, | | | | | | CORE | | + + + + + + | RDW SD | 61.4 (H) | 35.1 - 46.3 fL | [facility] | | | | | | LABORATORY | | | | | | SERVICES, | | | | | | CORE | | + + + + + + | PLATELET | 67 (L) | 150 - 400 K/cu | [facility] | | | COUNT | | mm | LABORATORY | | | | | | SERVICES, | | | | | | CORE | | + + + + + + | MPV | 12.0 | 9.7 - 12.3 fL | [facility] [...] + + + + | NEUTROPHIL | 88.8 (H) | 50.0 - 70.0 % | [facility] | | | % | | | LABORATORY | | | | | | SERVICES, | | | | | | CORE | | + + + + + + | LYMPHOCYTE | 3.0 (L) | 18.0 - 42.0 % | [facility] | | | % | | | LABORATORY | | | | | | SERVICES, | | | | | | CORE | | + + + + + + | MONOCYTE % | 2.1 (L) | 3.5 - 9.0 % | [facility] | | | | | | LABORATORY | | | | | | SERVICES, | | | | | | CORE | | + + + + + + | EOS % | 0.0 (L) | 1.0 - 3.0 % | [facility] | | | | | | LABORATORY | | | | | | SERVICES, | | | | | | CORE | | + + + + + + | BASO % | 0.2 | 0.0 - 2.0 % | [facility] | | | | | | LABORATORY | | | | | | SERVICES, | | | | | | CORE | | + + + + + + | IG% | 5.9 (H)Comment: | 0.0 - 1.0 % | [facility] | | | | Increased immature | | LABORATORY | | | | granulocytes (IG) define | | SERVICES, | | | | a left shift. Immature | | CORE | | | | granulocytes (IG) are | | | | | | an automated count of | | | | | | metamyelocytes, | | | | | | myelocytes and | | | | | | promyelocytes. Bands | | | | | | are not included in the | | | | | | IG count. Bands are | | | | | | included in the | | | | | | neutrophil count. | | | | + + + + + + | NEUTROPHIL | 19.72 (H) | 1.80 - 7.70 | [facility] | | | # | | K/cu mm | LABORATORY | | | | | | SERVICES, | | | | | | CORE | | + + + + + + | LYMPHOCYTE | 0.67 (L) | 1.00 - 4.80 | [facility] | | | # | | K/cu mm | LABORATORY | | | | | | SERVICES, | | | | | | CORE | | + + + + + + | MONOCYTE # | 0.46 | 0.10 - 0.90 | [facility] | | | | | K/cu mm | LABORATORY | | | | | | SERVICES, | | | | | | CORE | | + + + + + + | EOS # | 0.01 | 0.00 - 0.50 | [facility] | | | | | K/cu mm | LABORATORY | | | | | | SERVICES, | | | | | | CORE | | + + + + + + | BASO # | 0.05 | 0.00 - 0.10 | [facility] | | | | | K/cu mm | LABORATORY | | | | | | SERVICES, | | | | | | CORE | | + + + + + + | IG# | 1.32 (H) | 0.00 - 0.10 | [facility] | | | | | K/cu mm | LABORATORY | | | | | | SERVICES, | | | | | | CORE | | + + + + + + + + | Specimen | + + | Blood - Blood | | (substance) | + + + + + | Narrative | Performed At | + + + | Increased immature granulocytes (IG) define a left shift. | [facility] | | Immature granulocytes (IG) are an automated count of metamyelocytes, | LABORATORY | | myelocytes and promyelocytes. Bands are not included in the IG count. | SERVICES, CORE | | Bands are included in the neutrophil count. | | + + + + + + + + | Performing | Address | City/State/Zipcode | Phone Number | | Organization | | | | + + + + + | [facility] | [address] | [place] [address] | | | SERVICES, CORE | [address] | | | + + + + + COMPLETE METABOLIC SET (NA,K,CL,CO2,BUN,CREAT,GLUC,CA,AST,ALT,BILI TOTAL,ALK PHOS,ALB,PROT TOTAL) (12/24/2017 4:41 AM PST) + + + + + + | Component | Value | Ref Range | Performed | Pathologist | | | | | At | Signature | + + + + + + | GLUCOSE, | 87 | 70 - 99 mg/dL | [facility] | | | PLASMA | | | LABORATORY | | | (LAB) | | | SERVICES, | | | | | | CORE | | + + + + + + | BUN, PLASMA | 18 | 6 - 20 mg/dL | [facility] | | | (LAB) | | | LABORATORY | | | | | | SERVICES, | | | | | | CORE | | + + + + + + | CREATININE | 1.26 (H) | 0.60 - 1.10 | [facility] | | | PLASMA | | mg/dL | LABORATORY | | | (LAB) | | | SERVICES, | | | | | | CORE | | + + + + + + | EGFR | 53 (L) | >60 mL/min | [facility] | | | - | | | LABORATORY | | | HUNGARIAN | | | SERVICES, | | | | | | CORE | | + + + + + + | EGFR NON | 44 (L) | >60 mL/min | [facility] | | | -DIMAS | | | LABORATORY | | | RICAN | | | SERVICES, | | | | | | CORE | | + + + + + + | SODIUM, | 143 | 136 - 145 | [facility] | | | PLASMA | | mmol/L | LABORATORY | | | (LAB) | | | SERVICES, | | | | | | CORE | | + + + + + + | POTASSIUM, | 4.3 | 3.4 - 5.0 | [facility] | | | PLASMA | | mmol/L | LABORATORY | | | (LAB) | | | SERVICES, | | | | | | CORE | | + + + + + + | CHLORIDE, | 112 (H) | 97 - 108 mmol/L | [facility] | | | PLASMA | | | LABORATORY | | | (LAB) | | | SERVICES, | | | | | | CORE | | + + + + + + | TOTAL CO2, | 21 | 21 - 32 mmol/L | [facility] | | | PLASMA | | | LABORATORY | | | (LAB) | | | SERVICES, | | | | | | CORE | | + + + + + + | CALCIUM, | 7.4 (L) | 8.6 - 10.2 | [facility] | | | PLASMA | | mg/dL | LABORATORY | | | (LAB) | | | SERVICES, | | | | | | CORE | | + + + + + + | CALCIUM(ALB | 8.8 | 8.6 - 10.2 | [facility] | | | CORRECTED) | | mg/dL | LABORATORY | | | | | | SERVICES, | | | | | | CORE | | + + + + + + | BILIRUBIN | 0.9 | 0.3 - 1.2 mg/dL | [facility] | | | TOTAL | | | LABORATORY | | | | | | SERVICES, | | | | | | CORE | | + + + + + + | TOTAL | 6.1 (L) | 6.4 - 8.2 g/dL | [facility] [...] + + + | ALK PHOS | 232 (H) | 42 - 98 U/L | [facility] | | | | | | LABORATORY | | | | | | SERVICES, | | | | | | CORE | | + + + + + + | AST(SGOT) | 170 (H) | <=41 U/L | [facility] | | | | | | LABORATORY | | | | | | SERVICES, | | | | | | CORE | | + + + + + + | ALT (SGPT) | 72 (H) | <=60 U/L | [facility] | | [...] + + + + | ANION | 14 (H) | 4 - 11 mmol/L | [facility] | | | GAP(ALB | | | LABORATORY | | | CORRECTED) | | | SERVICES, | | | | | | CORE | | + + + + + + | POTASSIUM | Sl Hemo | | [facility] | | | CMNT | | | LABORATORY | | | | | | SERVICES, | | | | | | CORE | | + + + + + + | AST CMNT | Sl Hemo | | [facility] | | | | | | LABORATORY | | | | | | SERVICES, | | | | | | CORE | | + + + + + + + + | Specimen | + + | Blood - Blood | | (substance) | + + + + + | Narrative | Performed At | + + + | Sample hemolyzed. Results for K, Total Bili, Direct Bili, AST, | [facility] | | LDH, or HDL may be inaccurate. Refer to comment under test result. | LABORATORY | | GFR is estimated using the MDRD equation recommended by the National | SERVICES, CORE | | Kidney Disease Education Program. Estimated GFR Interpretive | | | Information: <60 mL/min/1.73 sq m Chronic Kidney | | | Disease <15 mL/min/1.73 sq m Kidney Failure | | | Estimated GFR greater that 60 mL/min/1.73 sq m is of limited clinical | | | value. The MDRD equation is not valid in the following situations: | | | - Patients under 18 years of age - Severe malnutrition or obesity | | | - Vegetarian diet - Rapidly changing kidney function - Amputees, | | | paraplegics, or other muscle-wasting diseses | | + + + + + + + + | Performing | Address | City/State/Zipcode | Phone Number | | Organization | | | | + + + + + | [facility] | [address] | [place] [address] | | | SERVICES, SAM | [address] | | | + + + + + CULTURE, BLOOD BACTI & YEAST GWEN (12/24/2017 1:00 AM PST) + + + + + [...] Specimen | + + | Blood - Peripheral | | (qualifier value) | + + + + + + + | Performing | Address | City/State/Zipcode | Phone Number | | Organization | | | | + + + + + | [facility] | [address] | [place] [address] | | | SERVICES, CORE | [address] | | | + + + + + 12 LEAD ECG (12/24/2017 12:00 AM PST) + + + + + + | Component | Value | Ref Range | Performed | Pathologist | | | | | At | Signature | + + + + + + | VENTRICULAR | 75 | bpm | [facility] | | | RATE | | | OF | | | | | | CARDIOLOGY | | + + + + + + | ATRIAL RATE | 75 | ms | [facility] | | | | | | OF | | | | | | CARDIOLOGY | | + + + + + + | P-R | 160 | ms | [facility] | | | INTERVAL | | | OF | | | | | | CARDIOLOGY | | + + + + + + | P AXIS | 7 | deg | [facility] | | | | | | OF | | | | | | CARDIOLOGY | | + + + + + + | QRS | 94 | ms | [facility] | | | DURATION | | | OF | | | | | | CARDIOLOGY | | + + + + + + | QT | 419 | ms | [facility] | | | | | | OF | | | | | | CARDIOLOGY | | + + + + + + | QTC-RISA | 467 | ms | [facility] | | | | | | OF | | | | | | CARDIOLOGY | | + + + + + + | R AXIS | -18 | deg | [facility] | | | | | | OF | | | | | | CARDIOLOGY | | + + + + + + | T AXIS | 51 | deg | [facility] | | | | | | OF | | | | | | CARDIOLOGY | | + + + + + + | ECG | Sinus rhythm- NORMAL ECG | | [facility] | | | IMPRESSION | - | | OF | | | | | | CARDIOLOGY | | + + + + + + | ECG | Electronically signed | | [facility] | | | IMPRESSION | by: PRADEEP GEORGES | | OF | | | | 12-24-2017 10:03:27 | | CARDIOLOGY | | + + [...] + | [facility] | [address] | [place], [place] | | | CARDIOLOGY | [address] | [address] | | + + + + + CAPILLARY BLOOD GLUCOSE (NO CHG), POC (12/23/2017 11:38 PM PST) + +---------+ + + + | Component | Value | Ref Range | Performed | Pathologist | | | | | At | Signature | + +---------+ + + + | BLOOD | 127 (H) | 60 - 99 mg/dL | [...] + | [facility] | [address] | [place], [place] | | | DG POINT OF CARE | [address] | [address] | | | TESTS | | | | + + + + + CULTURE, BLOOD BACTI & YEAST GWEN (12/23/2017 11:34 PM PST) + + + + + [...] + | Blood - Antecubital | | region structure | | (body structure) | + + + + + + + | Performing | Address | City/State/Zipcode | Phone Number | | Organization | | | | + + + + + | [facility] | [address] | [place] [address] | | | SERVICES, CORE | [address] | | | + + + + + RBC MORPHOLOGY (12/23/2017 11:33 PM PST) + + + + + + | Component | Value | Ref Range | Performed | Pathologist | | | | | At | Signature | + + + + + + | ANISOCYTOSI | 2+(25-100cells/HPF) | | [facility] | | | S | | | LABORATORY | | | | | | SERVICES, | | | | | | CORE | | + + + + + + | MACROCYTOSI | 2+(25-100cells/HPF) | | [facility] | | | S | | | LABORATORY | | | | | | SERVICES, | | | | | | CORE | | + + + + + + | SCHISTOCYTE | 1+ (<1-2cells/HPF) | | [facility] | | | S | | | LABORATORY | | | | | | SERVICES, | | | | | | CORE | | + + + + + + + + | Specimen | + + | Blood - Blood | | (substance) | + + + + + + + | Performing | Address | City/State/Zipcode | Phone Number | | Organization | | | | + + + + + | [facility] | [address] | [place] [address] | | | SERVICES, CORE | [address] | | | + + + + + MANUAL DIFFERENTIAL (12/23/2017 11:33 PM PST) + + + + + + | Component | Value | Ref Range | Performed | Pathologist | | | | | At | Signature | + + + + + + | NEUTROPHIL | 87.0 (H) | 50.0 - 70.0 % | [facility] | | | % | | | LABORATORY | | | | | | SERVICES, | | | | | | CORE | | + + + + + + | LYMPHOCYTE | 1.7 (L) | 18.0 - 42.0 % | [facility] | | | % | | | LABORATORY | | | | | | SERVICES, | | | | | | CORE | | + + + + + + | MONOCYTE % | 0.9 (L) | 3.5 - 9.0 % | [facility] | | | | | | LABORATORY | | | | | | SERVICES, | | | | | | CORE | | + + + + + + | EOSINOPHIL | 0.0 (L) | 1.0 - 3.0 % | [facility] | | | % | | | LABORATORY | | | | | | SERVICES, | | | | | | CORE | | + + + + + + | BASOPHIL % | 0.0 | 0.0 - 2.0 % | [facility] | | | | | | LABORATORY | | | | | | SERVICES, | | | | | | CORE | | + + + + + + | IG% | 10.4 (H)Comment: | 0.0 - 1.0 % | [facility] | | | | Increased immature | | LABORATORY | | | | granulocytes(IG)define a | | SERVICES, | | | | left shift.IGs include | | CORE | | | | metamyelocytes, | | | | | | myelocytes and | | | | | | promyelocytes. Bands are | | | | | | included in the | | | | | | neutrophil count, not | | | | | | the IG count, except in | | | | | | neonates <=60 days old | | | | | | where bands are reported | | | | | | in a manual diff. | | | | + + + + + + | NEUTROPHIL | 14.99 (H) | 1.80 - 7.70 | [facility] | | | # | | K/cu mm | LABORATORY | | | | | | SERVICES, | | | | | | CORE | | + + + + + + | LYMPHOCYTE | 0.29 (L) | 1.00 - 4.80 | [facility] | | | # | | K/cu mm | LABORATORY | | | | | | SERVICES, | | | | | | CORE | | + + + + + + | MONOCYTE # | 0.16 | 0.10 - 0.90 | [facility] | | | | | K/cu mm | LABORATORY | | | | | | SERVICES, | | | | | | CORE | | + + + + + + | EOSINOPHIL | 0.00 | 0.00 - 0.50 | [facility] | | | # | | K/cu mm | LABORATORY | | | | | | SERVICES, | | | | | | CORE | | + + + + + + | BASOPHIL # | 0.00 | 0.00 - 0.10 | [facility] | | | | | K/cu mm | LABORATORY | | | | | | SERVICES, | | | | | | CORE | | + + + + + + | IG# | 1.79 (H) | 0.00 - 0.10 | [facility] | | | | | K/cu mm | LABORATORY | | | | | | SERVICES, | | | | | | CORE | | + + + + + + + + | Specimen | + + | Blood - Blood | | (substance) | + + + + + | Narrative | Performed At | + + + | New pediatric reference ranges for Lymphocyte % in effect July 28, | [facility] | | 2017. Increased immature granulocytes(IG)define a left shift.IGs | LABORATORY | | include metamyelocytes, myelocytes and promyelocytes. Bands are | SERVICES, CORE | | included in the neutrophil count, not the IG count, except in neonates | | | <=60 days old where bands are reported in a manual diff. | | + + + + + + + + | Performing | Address | City/State/Zipcode | Phone Number | | Organization | | | | + + + + + | [facility] | [address] | [place] [address] | | | SERVICES, CORE | [address] | | | + + + + + CBC AND AUTO DIFF (12/23/2017 11:33 PM PST) + + + + + + | Component | Value | Ref Range | Performed | Pathologist | | | | | At | Signature | + + + + + + | WHITE CELL | 17.23 (H) | 3.50 - 10.80 | [facility] | | | COUNT | | K/cu mm | LABORATORY | | | | | | SERVICES, | | | | | | CORE | | + + + + + + | RED CELL | 3.07 (L) | 4.00 - 5.20 | [facility] | | | COUNT | | M/cu mm | LABORATORY | | | | | | SERVICES, | | | | | | CORE | | + + + + + + | HEMOGLOBIN | 9.7 (L) | 12.0 - 16.0 | [facility] | | | | | g/dL | LABORATORY | | | | | | SERVICES, | | | | | | CORE | | + + + + + + | HEMATOCRIT | 30.2 (L) | 36.0 - 46.0 % | [facility] | | | | | | LABORATORY | | | | | | SERVICES, | | | | | | CORE | | + + + + + + | MCV | 98.4 | 80.0 - 100.0 fL | [facility] | | | | | | LABORATORY | | | | | | SERVICES, | | | | | | CORE | | + + + + + + | MCHC | 32.1 | 32.0 - 36.0 | [facility] | | | | | g/dL | LABORATORY | | | | | | SERVICES, | | | | | | CORE | | + + + + + + | RDW SD | 61.3 (H) | 35.1 - 46.3 fL | [facility] | | | | | | LABORATORY | | | | | | SERVICES, | | | | | | CORE | | + + + + + + | PLATELET | 51 (L) | 150 - 400 K/cu | [facility] | | | COUNT | | mm | LABORATORY | | | | | | SERVICES, | | | | | | CORE | | + + + + + + | MPV | 10.2 | 9.7 - 12.3 fL | [facility] [...] + + | Blood - Blood | | (substance) | + + + + + + + | Performing | Address | City/State/Zipcode | Phone Number | | Organization | | | | + + + + + | [facility] | [address] | [place] [address] | | | SERVICES, CORE | [address] | | | + + + + + ANTIBODY SCREEN (12/23/2017 11:33 PM PST) + + + + + [...] + + | Blood - Blood | | (substance) | + + + + + + + | Performing | Address | City/State/Zipcode | Phone Number | | Organization | | | | + + + + + | [facility] | [address] | [place] [address] | | | SERVICES, | [address] | | | | TRANSFUSION MEDICINE | | | | + + + + + ABO & RH TYPE (12/23/2017 11:33 PM PST) + + + + + [...] + + | Blood - Blood | | (substance) | + + + + + + + | Performing | Address | City/State/Zipcode | Phone Number | | Organization | | | | + + + + + | [facility] | [address] | [place] [address] | | | SERVICES, | [address] | | | | TRANSFUSION MEDICINE | | | | + + + + + LACTATE (12/23/2017 11:33 PM PST) + +-------+ + + + | Component | Value | Ref Range | Performed | Pathologist | | | | | At | Signature | + +-------+ + + + | LACTATE | 2.8 | mmol/L | [facility] | | | | | | LABORATORY | | | | | | SERVICES, | | | | | | CORE | | + +-------+ + + + + + | Specimen | + + | Blood - Blood | | (substance) | + + + + + | Narrative | Performed At | + + + | Reference Range: Venous blood: 0.5 - 2.2 mmol/L Critical | [facility] | | >= 4.0 mmol/L Arterial blood: 0.5 - 1.6 mmol/L Critical >= 4.0 | LABORATORY | | mmol/L | SERVICES, CORE | + + + + + + + + | Performing | Address | City/State/Zipcode | Phone Number | | Organization | | | | + + + + + | [facility] | [address] | [place] [address] | | | SERVICES, CORE | [address] | | | + + + + + COMPLETE METABOLIC SET (NA,K,CL,CO2,BUN,CREAT,GLUC,CA,AST,ALT,BILI TOTAL,ALK PHOS,ALB,PROT TOTAL) (12/23/2017 11:33 PM PST) + + + + + + | Component | Value | Ref Range | Performed | Pathologist | | | | | At | Signature | + + + + + + | GLUCOSE, | 111 (H) | 70 - 99 mg/dL | [facility] | | | PLASMA | | | LABORATORY | | | (LAB) | | | SERVICES, | | | | | | CORE | | + + + + + + | BUN, PLASMA | 16 | 6 - 20 mg/dL | [facility] | | | (LAB) | | | LABORATORY | | | | | | SERVICES, | | | | | | CORE | | + + + + + + | CREATININE | 1.34 (H) | 0.60 - 1.10 | [facility] | | | PLASMA | | mg/dL | LABORATORY | | | (LAB) | | | SERVICES, | | | | | | CORE | | + + + + + + | EGFR | 50 (L) | >60 mL/min | [facility] | | | - | | | LABORATORY | | | HUNGARIAN | | | SERVICES, | | | | | | CORE | | + + + + + + | EGFR NON | 41 (L) | >60 mL/min | [facility] | | | -DIMAS | | | LABORATORY | | | RICAN | | | SERVICES, | | | | | | CORE | | + + + + + + | SODIUM, | 144 | 136 - 145 | [facility] | | | PLASMA | | mmol/L | LABORATORY | | | (LAB) | | | SERVICES, | | | | | | CORE | | + + + + + + | POTASSIUM, | 3.7 | 3.4 - 5.0 | [facility] | | | PLASMA | | mmol/L | LABORATORY | | | (LAB) | | | SERVICES, | | | | | | CORE | | + + + + + + | CHLORIDE, | 111 (H) | 97 - 108 mmol/L | [facility] | | | PLASMA | | | LABORATORY | | | (LAB) | | | SERVICES, | | | | | | CORE | | + + + + + + | TOTAL CO2, | 22 | 21 - 32 mmol/L | [facility] | | | PLASMA | | | LABORATORY | | | (LAB) | | | SERVICES, | | | | | | CORE | | + + + + + + | CALCIUM, | 7.4 (L) | 8.6 - 10.2 | [facility] | | | PLASMA | | mg/dL | LABORATORY | | | (LAB) | | | SERVICES, | | | | | | CORE | | + + + + + + | CALCIUM(ALB | 8.6 | 8.6 - 10.2 | [facility] | | | CORRECTED) | | mg/dL | LABORATORY | | | | | | SERVICES, | | | | | | CORE | | + + + + + + | BILIRUBIN | 0.9 | 0.3 - 1.2 mg/dL | [facility] | | | TOTAL | | | LABORATORY | | | | | | SERVICES, | | | | | | CORE | | + + + + + + | TOTAL | 6.1 (L) | 6.4 - 8.2 g/dL | [facility] [...] + + + | ALK PHOS | 243 (H) | 42 - 98 U/L | [facility] | | | | | | LABORATORY | | | | | | SERVICES, | | | | | | CORE | | + + + + + + | AST(SGOT) | 214 (H) | <=41 U/L | [facility] | | | | | | LABORATORY | | | | | | SERVICES, | | | | | | CORE | | + + + + + + | ALT (SGPT) | 77 (H) | <=60 U/L | [facility] | | | | | | LABORATORY | | | | | | SERVICES, | | | | | | CORE | | + + + + + + | ANION GAP | 11 | 4 - 11 mmol/L | [facility] | | | | | | LABORATORY | | | | | | SERVICES, | | | | | | CORE | | + + + + + + | ANION | 14 (H) | 4 - 11 mmol/L | [...] + + | Blood - Blood | | (substance) | + + + + + | Narrative | Performed At | + + + | GFR is estimated using the MDRD equation recommended by the | [facility] | | National Kidney Disease Education Program. Estimated GFR | LABORATORY | | Interpretive Information: <60 mL/min/1.73 sq m | [facility], CORE | | Chronic Kidney Disease <15 [...] Rapidly changing kidney | | | function - Amputees, paraplegics, or other muscle-wasting diseses | | + + + + + + + + | Performing | Address | City/State/Zipcode | Phone Number | | Organization | | | | + + + + + | [facility] | [address] | [place] [address] | | | SAM ALONSO | [address] | | | + + + + + OUTSIDE CARDIOLOGY (12/23/2017 12:00 AM PST) + + + | Narrative | Performed At | + + + | | | + + + OUTSIDE CARDIOLOGY (12/23/2017 12:00 AM PST) + + + | Narrative | Performed At | + + + | | | + + + OUTSIDE CARDIOLOGY (12/23/2017 12:00 AM PST) + + + | Narrative | Performed At | + + + | | | + + + OUTSIDE CARDIOLOGY (12/23/2017 12:00 AM PST) + + + | Narrative | Performed At | + + + | | | + + + OUTSIDE LAB - HEMATOLOGY (12/23/2017 12:00 AM PST) + + + | Narrative | Performed At | + + + | | | + + + OUTSIDE LAB - MICROBIO CULTURE (12/23/2017 12:00 AM PST) + + + | Narrative | Performed At | + + + | | | + + + OUTSIDE LAB - CHEMISTRY (12/23/2017 12:00 AM PST) + + + | Narrative | Performed At | + + + | | | + + + OUTSIDE LAB - HEMATOLOGY (12/23/2017 12:00 AM PST) + + + | Narrative | Performed At | + + + | | | + + + OUTSIDE LAB - HEMATOLOGY (11/07/2017 12:00 AM PDT) + + + | Narrative | Performed At | + + + | | | + + + documented in this encounter Visit Diagnoses + + | Diagnosis | + + | Bacteremia due to Klebsiella pneumoniae - Primary Bacteremia | + + | Sepsis, due to unspecified organism | + + | Sepsis (HCC) | + + | Chronic use of opiate drugs therapeutic purposes | + + | Hx of small bowel obstruction Personal history of other diseases of digestive system | + + | Gastrostomy tube in place (HCC) | + + | Septic shock (HCC) | + + | Insomnia Insomnia, unspecified | + + | JULY (acute kidney injury) (HCC) Acute kidney failure, unspecified | + + | Moderate protein-calorie malnutrition (HCC) Malnutrition of moderate degree | + + | CRBSI (catheter-related bloodstream infection) Other and unspecified infection due to | | central venous catheter | + + | 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 | + + documented in this encounter Administered Medications + +--------+---------+------+------+------+ | Medication Order | MAR | Action | Dose | Rate | Site | | | Action | Date | | | | + +--------+---------+------+------+------+ + +---+ | acetaminophen (TYLENOL) tablet | | | 325-650 mg 325-650 mg, oral, | | | EVERY 4 HOURS NEEDED, Starting | | | 12/23/17 at 2328, Until Tue | | | 12/27/17 at 1926, mild pain, | | | multimodal pain control | | + +---+ | | | + +---+ | artificial tears (dextran | | | 70-hypromellose) (NATURE'S TEARS) | | | 0.1-0.3 % ophthalmic drops 1 | | | drop 1 drop, Both Eyes, | | | NEEDED, Starting Tue12/23/17 at | | | 2327, Until 12/27/17 at 1926, | | | dry eyes | | + +---+ | | | + +---+ | bisacodyl (DULCOLAX) | | | suppository 10 mg 10 mg, rectal, | | | DAILY NEEDED, Starting Fri | | | 12/23/17 at 2327, Until Tue | | | 12/27/17 at 1926, 2nd line for no | | | BM in past 2 days OR if no | | | response to MIRALAX or if patient | | | unable to tolerate oral | | + +---+ | | | + +---+ + +-------+ +-----+---+---+ | ceFEPIme (MAXIPIME) injection 2 | Given | 12/27/19 | 2 g | | | | g 2 g, intravenous, EVERY 12 | | 18 5:31 | | | | | HOURS, First dose (after last | | PM PST | | | | | modification) on 12/24/17 at | | | | | | | 0600, Until Discontinued | | | | | | + +-------+ +-----+---+---+ +-------+ +-----+---+---+ | Given | 12/27/19 | 2 g | | | | | 18 6:28 | | | | | | AM PST | | | | +-------+ +-----+---+---+ | Given | 12/26/19 | 2 g | | | | | 18 7:10 | | | | | | PM PST | | | | +-------+ +-----+---+---+ +---+---+ | | | +---+---+ + +-------+ +--------+---+---+ | ciprofloxacin HCl (CIPRO) | Given | 12/28/19 | 750 mg | | | | tablet 750 mg 750 mg, oral, | | 18 8:43 | | | | | TWICE DAILY, First dose on Mon | | AM PST | | | | | 12/26/17 at 2215, Until | | | | | | | Discontinued | | | | | | + +-------+ +--------+---+---+ +-------+ +--------+---+---+ | Given | 12/27/19 | 750 mg | | | | | 18 10:51 | | | | | | PM PST | | | | +-------+ +--------+---+---+ +---+---+ | | | +---+---+ + + + +---------+---+--------+ | fentaNYL (DURAGESIC) 100 mcg/hr | Applied | 12/28/19 | 1 patch | | Left | | 1 patch 1 patch, transdermal, | Patch | 18 2:16 | | | Upper | | EVERY 72 HOURS, First dose on Sat | | AM PST | | | Back | | 12/24/17 at 0200, Until | | | | | | | Discontinued | | | | | | + + + +---------+---+--------+ + + +---------+---+ + | Applied Patch | 12/25/19 | 1 patch | | Right | | | 18 2:30 | | | Shoulder | | | AM PST | | | | + + +---------+---+ + +---+---+ | | | +---+---+ + +-------+ +--------+---+---------+ | heparin, porcine (PF) injection | Given | 12/25/19 | 5,000 | | Abdomen | | 5,000 Units 5,000 Units, | | 18 9:42 | Units | | | | subcutaneous, EVERY 8 HOURS, | | PM PST | | | | | First dose on 12/24/17 at | | | | | | | 1400, Until Discontinued | | | | | | + +-------+ +--------+---+---------+ +-------+ +--------+---+---------+ | Given | 12/25/19 | 5,000 | | Abdomen | | | 18 2:41 | Units | | | | | PM PST | | | | +-------+ +--------+---+---------+ +---+---+ | | | +---+---+ + +-------+ +--------+---+---+ | HYDROmorphone (DILAUDID) | Given | 12/25/19 | 0.2 mg | | | | injection 0.2 mg 0.2 mg, | | 18 5:20 | | | | | intravenous, EVERY 2 HOURS | | PM PST | | | | | NEEDED, Starting 12/24/17 at | | | | | | | 0120, Until 12/24/17 at 2358, | | | | | | | severe pain | | | | | | + +-------+ +--------+---+---+ +-------+ +--------+---+---+ | Given | 12/25/19 | 0.2 mg | | | | | 18 6:55 | | | | | | AM PST | | | | +-------+ +--------+---+---+ | Given | 12/25/19 | 0.2 mg | | | | | 18 4:55 | | | | | | AM PST | | | | +-------+ +--------+---+---+ + +---+ | | | + +---+ | HYDROmorphone (DILAUDID) liquid | | | 1 mg 1 mg, oral, EVERY 4 HOURS | | | NEEDED, Starting 12/24/17 | | | at 2356, Until Tue12/27/17 at | | | 1926, severe pain | | + +---+ | | | + +---+ + +-------+ +--------+---+---------+ | influenza vaccine (FLUZONE) | Given | 12/28/19 | 0.5 mL | | Left | | (PF) IM injection (age 3 years or | | 18 12:53 | | | Deltoid | | greater) 0.5 mL 0.5 mL, | | PM PST | | | | | intramuscular, DAY OF DISCHARGE, | | | | | | | 1 dose, Starting 12/24/17 at | | | | | | | 1834, Until Tue12/27/17 at 1253, | | | | | | | Flu vaccination per delegation | | | | | | | protocol | | | | | | + +-------+ +--------+---+---------+ +---+---+ | | | +---+---+ + +---------+ + +---+---+ | lactated Ringers IV 1,000 mL, | New Bag | 12/25/19 | 1,000 mL | | | | intravenous, ONCE, 1 dose, Sat | | 18 4:45 | | | | | 12/24/17 at 0500 | | AM PST | | | | + +---------+ + +---+---+ +---+---+ | | | +---+---+ + +-------+ +--------+---+---+ | LORazepam (ATIVAN) tablet 1.5 | Given | 12/27/19 | 1.5 mg | | | | mg 1.5 mg, oral, AT BEDTIME, | | 18 10:51 | | | | | First dose on 12/24/17 at | | PM PST | | | | | 2200, Until Discontinued | | | | | | + +-------+ +--------+---+---+ +-------+ +--------+---+---+ | Given | 12/25/19 | 1.5 mg | | | | | 18 9:42 | | | | | | PM PST | | | | +-------+ +--------+---+---+ + +---+ | | | + +---+ | melatonin tablet 3 mg 3 mg, | | | oral, AT BEDTIME NEEDED, | | | Starting Tue12/23/17 at 2327, | | | Until Tue12/27/17 at 1925, | | | insomnia | | + +---+ | | | + +---+ | menthol-zinc oxide (CALAZIME) | | | topical paste 0.2%-16.5% | | | topical, FOUR TIMES DAILY | | | NEEDED, Starting Tue12/23/17 at | | | 2325, Until Tue12/27/17 at 1925, | | | skin irritation, redness, | | | breakdown | | + +---+ | | | + +---+ + +---------+ +--------+---+---+ | metroNIDAZOLE (FLAGYL) IV 500 | New Bag | 12/26/19 | 500 mg | | | | mg 500 mg, intravenous, EVERY 8 | | 18 1:42 | | | | | HOURS, First dose on 12/24/17 | | PM PST | | | | | at 0500, Until Discontinued | | | | | | + +---------+ +--------+---+---+ +---------+ +--------+---+---+ | New Bag | 12/26/19 | 500 mg | | | | | 18 5:15 | | | | | | AM PST | | | | +---------+ +--------+---+---+ | New Bag | 12/25/19 | 500 mg | | | | | 18 9:42 | | | | | | PM PST | | | | +---------+ +--------+---+---+ + +---+ | | | + +---+ | naloxone (NARCAN) injection | | | intravenous, NEEDED, Starting | | | 12/24/17 at 0121, Until Tue | | | 12/27/17 at 1926, over sedation | | + +---+ | | | + +---+ | oxyCODONE (immediate release) | | | (ROXICODONE) liquid 5-10 mg 5-10 | | | mg, oral, EVERY 4 HOURS | | | NEEDED, Starting 12/24/17 at | | | 1731, Until 12/27/17 at 1926, | | | moderate pain if pt prefers | | | liquid | | + +---+ | | | + +---+ + +-------+ +-------+---+---+ | oxyCODONE (immediate release) | Given | 12/28/19 | 15 mg | | | | (ROXICODONE) tablet 5-15 mg 5-15 | | 18 1:02 | | | | | mg, oral, EVERY 4 HOURS | | PM PST | | | | | NEEDED, Starting 12/24/17 at | | | | | | | 1731, Until 12/27/17 at 1926, | | | | | | | moderate pain | | | | | | + +-------+ +-------+---+---+ +-------+ +-------+---+---+ | Given | 12/28/19 | 15 mg | | | | | 18 2:24 | | | | | | AM PST | | | | +-------+ +-------+---+---+ | Given | 12/27/19 | 15 mg | | | | | 18 7:40 | | | | | | PM PST | | | | +-------+ +-------+---+---+ +---+---+ | | | +---+---+ + +-------+ +------+---+---+ | polyethylene glycol (MIRALAX) | Given | 12/28/19 | 17 g | | | | packet 17 g 17 g, oral, DAILY, | | 18 8:43 | | | | | First dose on 12/24/17 at | | AM PST | | | | | 0900, Until Discontinued | | | | | | + +-------+ +------+---+---+ + +---+ | | | + +---+ | polyethylene glycol (MIRALAX) | | | packet 34 g 34 g, oral, THREE | | | TIMES DAILY NEEDED, Starting | | | 12/23/17 at 2327, Until Tue | | | 12/27/17 at 1926, 1st line - for | | | no BM for 2 days | | + +---+ | | | + +---+ + +-------+ +---------+---+---+ | senna-docusate (SENOKOT S) | Given | 12/28/19 | 2 | | | | 8.6-50 mg 2 tablet 2 tablet, | | 18 8:44 | tablets | | | | oral, TWICE DAILY, First dose on | | AM PST | | | | | 12/24/17 at 0900, Until | | | | | | | Discontinued | | | | | | + +-------+ +---------+---+---+ +-------+ +---------+---+---+ | Given | 12/27/19 | 2 | | | | | 18 10:51 | tablets | | | | | PM PST | | | | +-------+ +---------+---+---+ | Given | 12/27/19 | 2 | | | | | 18 8:49 | tablets | | | | | AM PST | | | | +-------+ +---------+---+---+ +---+---+ | | | +---+---+ + +---------+ + +---+---+ | vancomycin (VANCOCIN) IV 1,000 | New Bag | 12/25/19 | 1,000 mg | | | | mg 1,000 mg (rounded from 904.5 | | 18 12:26 | | | | | mg = 15 mg/kg | | PM PST | | | | | 60.3 kg), intravenous, EVERY 24 | | | | | | | HOURS, First dose (after last | | | | | | | modification) on 12/24/17 at | | | | | | | 1200, Until Discontinued | | | | | | + +---------+ + +---+---+ +---+---+ | | | +---+---+ documented in this encounter
--- OUTSIDE RECORDS SUMMARY | ~2019-07-09 | XMS | Encounter Summary ---
Demographics + + + | Address | [address] | | | [place] [address] | + + + | Home Phone [...] Providers + +------+ + | Care Wood Preparation Supervisor Name | Role | Phone | [...] [facility] at [facility] | MD [address] [facility] | Review ([facility] - | | | | Erickson Borges | [address] | OUTSIDE RECORDS | | | | Mailcode: [place] | [place], [place] | 06/24/14 Bookmarked | | | | for Health and | [phone] | Document (notes, | | | | Healing, Building [address] | [phone] | labs, imaging)) | | | | [place], [place] | | | | | | [address] | | | | | | [phone] | | | +--------+ + + + [...]
--- OUTSIDE RECORDS SUMMARY | ~2019-07-09 | XMS | Encounter Summary ---
Demographics + + + | Address | [address] | | | [place] [address] | + + + | Home Phone [...] Author | [facility] | | | and [place]ardo[place] | + + + | Organization | [facility] | | | and [place]ardo[place] | + + + | Address | Unknown | + + + | Phone | Unavailable | + + + Support + + + + + | Name | Relationship | Address | Phone | + + + + + | Poncho Oquendo | ECON | [address] | | | | | [place] | | | | | [address] | | + + + + + | Marta Upton | ECON | [address] [place] | | | | | [address] | | + + + + + Care Team Providers + +------+ + | Care Microsoft Office Instructor Name | Role | Phone | [...] | | Personal | Reinaldo, | [place] | | | | | 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, | [place], | | | | | 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[address] | | | | | neoplasm of | [address] | Phone: | | | | | other site | [place], | [phone] | | | | | in | [place] [address] | Fax: | | | | | gastrointest | Phone: | [phone] | | | | | inal tract | [phone] | | | | | | Procedures | Fax: | | | | | | CT Abdomen | [phone] | | | | | | Pelvis [...] | | Personal | Reinaldo, | [place] | | | | | 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, | [place], | | | | | 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[address] | | | | | neoplasm of | [address] | Phone: | | | | | other site | [place], | [phone] | | | | | in | [place] [address] | Fax: | | | | | gastrointest | Phone: | [phone] | | | | | inal tract | [phone] | | | | | | Procedures | Fax: | | | | | | CT Abdomen | [phone] | | | | | | Pelvis w | | | | | | | Contrast | | | +--------+--------+ + + + + Encounter Details +--------+ + + + + | Date | Type | Department | Care Team | Description | +--------+ + + + + | 03/18/ | Hospital | [facility] | Reinaldo, | Personal history of | | 2015 | Encounter | [facility] [address] | Epifanio Soler MD [address] | malignant neoplasm | | | | [place], | [address] [place] | of other site in | | | | [place] [address] | [place] [address] | gastrointestinal | | | | [phone] | [phone] | tract | | | | | [...] [address] | | | | | | [place] [address] | | | | | | [phone] | | | | | | | [...] + | MISCELLANEOUS LAB | | | [phone] | + +---------+ + + | MISCELANIOUS LAB | | | [phone] | + +---------+ + + documented in [...]
--- OUTSIDE RECORDS SUMMARY | ~2019-07-09 | XMS | Encounter Summary ---
Demographics + + + | Address | [address] | | | [place] [address] | + + + | Home Phone [...] Team Providers + +------+ + | Care Photographic Colorist Name | Role | Phone | + [...] 2014 | | [address] | [address] [facility] | LAPAROTOMY; TOTAL | | | | Rd [facility] | [address] [facility] [address] | ABDOMINAL | | | | Hospital Admitting | [place], [place] | HYSTERECTOMY; | | | | Desk Located on the | [address] | BILATERAL | | | | 9th floor | [phone] | SALPINGO-OOPHORECTOM | | | | [place], [place] | | Y; OMENTECTOMY; LEFT | | | | [address] | | PELVIC AND | | | [...] DISCHARGE SUMMARY Author: Roger Guadalupe MD PGY1 GOLD NIB GRINDER Attending Physician: Dr. Henderson Admission Date: 06/06/2014 [...] to Get Your Medications You need to cook pickled meat these prescriptions. We sent some of them to a specific pharmacy. Go t o these places to get your medications. [facility] - enoxaparin 40 mg/0.4 mL Syrg [address] [facility] [address] [facility] [address] [facility] [address] Hours: 8AM-9PM Mon-Fri; 9-5:30PM Sat-Sun You may [...] To contact your provider, please call the [facility] clinic at [phone] during daytime hours. During evening or weekend hours, please call the [facility] paging pebble mill operator at [phone] and ask for the Test Desk Operator Oncology staff on-call. Reasons to call [...] stable Discharging Physician: Roger Guadalupe MD PGY1 GOLD NIB GRINDER Service Pager: [phone] Attending Physician: Dr. Henderson I saw and [...] assessment and plan. Roger Guadalupe MD PGY1 GOLD NIB GRINDER Service Pager: [phone] I saw and evaluated the patient. I [...] assistance. Primary service notified. RAGHU DALY MD [facility] [address] [facility], 4th Floor Mail Code: CH4P [place], [place] [address] Raghu Antony MD - 06/08/2014 [...] and recommendations with primary care team provider platform consultant/oncology. RAGHU DALY MD BILLING INFORMATION [facility] DEPARTMENT: [id number] Place of Service:- Inpatient Date of Service: 06/08/2014 CSN: [id number] Suggested Modifier: None Suggested CPT: 00851 - Daily mgmt epidural/subarachnoid drug administration Prolonged [...] assessment and plan. Roger Guadalupe MD PGY1 GOLD NIB GRINDER Service Pager: [phone] I saw and evaluated the patient. I [...] separate note in EPIC). RAGHU DALY MD [facility] [address] [facility], 4th Floor Mail Code: CH4P [place], [place] [address] Raghu Antony MD - 06/07/2014 7:39 AM [...] 125 mL/hr intravenous CONTINUOUS 125 mL/hr (06/07/14 0379) Type: Epidural Rate: 4 mL/hour Anticoagulants: enoxaparin [...] care team provider . RAGHU DALY MD [facility] [address] [facility], 4th Floor Mail Code: CH4P [place], [place] [address] BILLING INFORMATION [facility] DEPARTMENT: [id number] Place of Service:- Inpatient Date of Service: 06/07/2014 CSN: [id number] Suggested Modifier: GC - Resident Involved Suggested CPT: 79176 - Daily mgmt epidural/subarachnoid drug administration Prolonged [...] | Abdominal or | | | LAPAROSCOPY (ASSOCIATE MEDIA PLANNER | ve | 7:27 AM | pelvic [...] + +--------+ + + + | NON ASSOCIATE MEDIA PLANNER CYTOLOGY | Routin | 06/06/2014 | | [...] | + + + + + | [facility] | [address] [facility] | [place] [address] | | | SERVICES, CORE | PARK [...] + + + + + | [facility] | [address] | [place] [address] | | | SERVICES, SAM | PARK [...] | | | LABORATORY | | | ROMANIAN | | | SERVICES, | | | [...] the MDRD equation recommended by the | [facility] | | National Kidney Disease Education Program. [...] [facility] | [address] | [place] [address] | | | SERVICES, CORE | PARK [...] [facility] | [address] | [place] [address] | | | SERVICES, CORE | PARK [...] [facility] | [address] | [place] [address] | | | SERVICES, CORE | PARK [...] | | | LABORATORY | | | ROMANIAN | | | SERVICES, | | | [...] | + + + + + | [facility] | [address] | [place] [address] | | | SERVICES, CORE | [address] | | | + + + + + OPERATION RECORD (06/07/2014 8:30 AM PDT) + + | Transcriptions | + + | Miguel Seymour MD - 06/06/2014 12:48 PM PDT Date of Service: 06/06/2014 | | Attending Surgeon: Miguel Seymour MD Electronics Instructor(s): | | Poncho Arriola MD. Anesthesia: General [...] 06/06/2014 11:52:24DT: 06/06/2014 12:48:01Job #: | | [id number] DEPARTMENT: [id number] ASS[facility]IATE MEDIA PLANNER ONC [facility]: - | | IPDate of Service: 06/07/2014 : [id number] | | Modifier: NoneSuggested CPT: NoneSuggested Procedure [...] | + + + + + | [facility] | [address] | [place] [address] | | | SERVICES, SAM | NEAL [...] [facility] | [address] | [place] [address] | | | SERVICES, CORE | PARK [...] [facility] | [address] | [place] [address] | | | SERVICES, CORE | NEAL [...] [facility] | [address] | [place] [address] | | | SERVICES, CORE | PARK [...] | | | LABORATORY | | | ROMANIAN | | | SERVICES, | | | [...] | + + + + + | [facility] | [address] | [place] [address] | | | SERVICES, CORE | [address] | | | + + + + + NON ASSOCIATE MEDIA PLANNER CYTOLOGY (06/06/2014) + + + + + + | Component | Value | Ref Range | Performed | Pathologist | | | | | At | Signature | + + + + + + | NON-ASSOCIATE MEDIA PLANNER | SOURCE OF SPECIMEN:A | | [facility] [...] San | | | | | | CT(ASCP)Cut Lace Machine Operator | | | | | | Electronically [...] | + + + + + | [facility] | [address] | [place] [address] | | | PATHOLOGY | [address] [...] | | | | | | corresponding [id number] | | | | | | B: [...] bed | | | | | | ([id number], slides E3-4). | | | | | [...] | | | | cs determined by [facility] | | | | | | [...] | | | | | | s/pchemoXRT ([id number], | | | | | | [id number]); now with | | | | | [...] | | | | | | | Data Processing Operator | | | | | | [...] identified. | | | | | | Data Processing Operator | | | | | | [...] residueB3-6, | | | | | | benefits representative sections | | | | | | of #1 external | | | | | | excrescenceB7-8, #2 | | | | | | external | | | | | | excrescenceB9-10, entire | | | | | | #3 external | | | | | | drxyrcnurcgV49, | | | | | | benefits representative sections | | | | | | of del rio-brown | | | | | | excrescences from inner | | | | | | cyst vfocfpjhttV69-50, | | | | | | additional sections of | | | | | | ymraxL77, benefits representative | | | | | | [...] endomyometriumD5, | | | | | | benefits representative sections | | | | | | of right ovaryD6-9, | | | | | | benefits representative sections | | | | | | of external ovarian | | | | | | hzknuzQ85-65, | | | | | | benefits representative sections | | | | | [...] + + | Performing | Address | City/State[facility] | Phone Number | | Organization | | | | + + + + + | [facility] | [address] | [place] [address] | | | PATHOLOGY | [address] [...]
--- OUTSIDE RECORDS SUMMARY | ~2019-07-09 | XMS | Encounter Summary ---
Demographics + + + | Address | [address] | | | [place] [address] | + + + | Home Phone | | + + + | Preferred Language | Unknown | + + + | Marital Status | Single | + + + | Hindu Affiliation | NON | + + + [...] Team Providers + +------+ + | Care Retail Banking Manager Name | Role | Phone | [...] + + | 04/28/ | Hospital | [facility] [address] | Cornelia Knutson, | | | 2012 - | Encounter | [facility] Mailcode: | [address] | | | | | [address] | [address] | | | 05/04/ | | [facility] [place], | [place], [place] | | | 2012 | | [place] [address] | [address] | | | | | [phone] | [phone] | | | | | | | [...] acute cholecystitis. Her pathology was reviewed at [facility]. She underwent a CT scan, which showed [...] working on arranging an appointm ent with [facility] Oncology for treatment planning. FINAL PATHOLOGY: Final [...] severe diarrhea.During normal business hours [facility] .For 'after hours' URGENT problems please call the [facility] gear machine operator general at and ask for the "Blue Surgery [...] None Your Follow-Up Plan Follow up with [facility] HEMATOLOGY ONCOLOGY CH. (Please expect a call from the Oncology clini c in the next several days to schedule an appointment with either Dr. Grey or Dr. Ledesma ) Contact information: [address] [facility] [address] Future Appointments Date & Time Provider Department Dept Phone Center 05/17/2012 11:30 AM CORNELIA KNUTSON MD [facility] [phone] [facility] Discharging Physician: MARCO ANTONIO BEATTY NP Attending Physician: MD Marco Antonio Mauricio RN, MSN, LINUX SYSTEMS ADMINISTRATOR [facility] Blue Surgery Pager# [phone] 9:37 AM 05/04/2012 documented in this enc [...] 05/04/12 0659 05/04/12699 - 05/05/12 0659(Discharged) Shift 3910-7250 2890-0966 9480-5996 Daily Total 6911-2467 8974-9550 2177-2715 Daily Total I N T A K E P.O. 925 183 220 8237 500 500 I.V. 5 10 15 Shift Total 930 763 476 1877 500 500 O U T P U T Urine 1050 6191 777 3091 400 400 Urine 1050 8902 254 7606 400 400 Other Stool 1 1 Shift Total 1050 3149 420 9267 400 400 NET -120 -1090 205 -1005 [...] Attending Physician: Dr. Romy Beatty RN, MSN, LINUX SYSTEMS ADMINISTRATOR [facility] Blue Surgery Pager# [phone] 12:54 PM 05/04/2012 Current Inpatient Medications Medication [...] Parish Arias MD - 5:51 AM PDT [facility] Department of Surgery Blue Surgery Progress Note [...] 04/30/12 0659 04/30/12699 - 05/01/12 0659 Shift 8179-8359 8470-7124 2041-7879 Daily Total 9006-3638 6681-6369 8322-9245 Daily Total I N T A K E P.O. 620 444 891 2060 P.O. 620 859 859 7944 I.V. 1977.33 977.5 982.5 3937.33 0 0 [...] O U T P U T Urine 511 311 7226 2004 I/O Urinary Drain Output (Urinary Cath Placement López) 320 470 7187 2004 Shift Total 564 688 3079 2005 NET 2415.83 837.5 307.5 3560.83 0 [...] tomorrow Parish Blackburn MD Surgery, R1 Pager: [phone] ilvia Del Toro NP - 05/01/2012 2:19 PM PDTPain fairly well controlled on oral medications. No longer nauseated, tolerating 10 mg oxycodone Epidural catheter discontinued, tip intact. APS will sign off, please call us back if there are any pain related concerns for us to add ress. Silvia Del Toro NP Adult Pain Service Pager [phone] Team Pager [phone] Silvia Mckeon NP - 05/01/2012 8:56 AM [...] and summary of old medical records (source: [facility]), as summarized in the body of the note. SILVIA DEL TORO NP BILLING INFORMATION [facility] DEPARTMENT: [id number] Place of Service:- Inpatient Date of Service: 05/01/2012 CSN: [id number] Suggested Modifier: None Suggested CPT: 02831 - Daily mgmt epidural/subarachnoid drug administration Prolonged service: n/a Parish Arias MD - 05/01/2012 5:44 AM PDT [facility] Department of Surgery Blue Surgery Progress Note [...] Date 04/29/12699 - 04/30/1265804/30/12699 - 05/01/12658 Shift 4227-6461 5341-7011 4833-4542 Daily Total 3242-3827 8501-1385 2457-5401 Daily Total I N T A K E P.O. 620 597 086 4901 P.O. 620 118 153 6139 I.V. 1977.33 977.5 982.5 3937.33 0 0 [...] O U T P U T Urine 388 700 7163 2004 I/O Urinary Drain Output (Urinary Cath Placement López) 368 018 6379 2004 Shift Total 662 008 5039 2004 NET 2415.83 837.5 307.5 3560.83 0 [...] course Parish Blackburn MD Surgery, R1 Pager: [phone] Parish Arias MD - 11:59 AM PDT [facility] Department of Surgery Blue Surgery Progress Note [...] - 04/30/1259 04/30/12699 - 05/01/12 0659 Shift 6445-3278 0654-6228 1344-5331 Daily Total 6162-6878 6095-9438 2216-2914 Daily Total I N T A K E P.O. 620 996 344 7099 P.O. 620 517 111 3877 I.V. 1977.33 977.5 982.5 3937.33 0 0 [...] O U T P U T Urine 746 372 6923 2004 I/O Urinary Drain Output (Urinary Cath Placement López) 696 187 7139 2004 Shift Total 842 544 3152 2004 NET 2415.83 837.5 307.5 3560.83 0 [...] course Parish Blackburn MD Surgery, R1 Pager: [phone] Sasha Antony MD - 04/30/2012 7:03 AM [...] recommendations with primary care team provider , akt frost. For today's evaluation, I have included my personal review of Mr. Vaughn's history and ph ysical examination. I also used the following components in my medical decision making: Discussion of case with another healthcare provider primary service. JOSE MALAGON MD BILLING INFORMATION [facility] DEPARTMENT: [id number] Place of Service:- Inpatient Date of Service: 04/30/2012 CSN: [id number] Suggested Modifier: GC - Resident Involved Suggested CPT: 14935 - Daily mgmt epidural/subarachnoid drug administration Prolonged [...] the floor later today. 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 [employer] Hypotension Fluid bolus as needed to [...] no need for intervention Dispo TRANSFER TO [facility] ONLY Sasha Antony MD - 04/29/2012 7:43 [...] making: N/a JOSE MALAGON MD BILLING INFORMATION [facility] DEPARTMENT: [id number] Place of Service:- Inpatient Date of Service: 04/29/2012 CSN: [id number] Suggested Modifier: GC - Resident Involved Suggested CPT: 01757 - Daily mgmt epidural/subarachnoid drug administration Prolonged [...] MD Department of Obstetrics & Gynecology, PGY1 [facility] Pager [phone] documented in thi s encounter Plan of [...] [facility] | [address] | [place] [address] | | | SERVICES, CORE | PARK [...] | + + + + + | [facility] | [address] | [place] [address] | | | SERVICES, CORE | PARK [...] | + + + + + | [facility] | [address] | [place] [address] | | | SERVICES, CORE | NEAL [...] | + + + + + | [facility] | [address] | [place] [address] | | | GAVIN, SAM | NEAL [...] [facility] | [address] | [place] [address] | | | SERVICES, CORE | PARK [...] + + | [facility] | [address] [facility] | [place] [address] | | | SERVICES, CORE | PARK [...] | + + + + + | [facility] | [address] [facility] | [place] [address] | | | SERVICES, CORE | NEAL [...] [facility] | [address] | [place] [address] | | | SERVICES, CORE | PARK [...] | + + + + + | [facility] | [address] | [place] [address] | | | SERVICES, CORE | NEAL [...] (H) | 60 - 99 mg/dL | [facility] - | | | GLUCOSE, | [...] + + + | [facility] | [address] | [place], [place] | | | JOHN CONTE OF [facility] | [address] | [address] | | | TESTS | | | [...] | + + + + + | [facility] | [address] | [place] [address] | | | SERVICES, CORE | NEAL [...] | [facility] | [address] | [place], [place] | | | JOHN CONTE OF [facility] | [address] | [address] | | | TESTS | | | [...] | + + + + + | [facility] | [address] | [place] [address] | | | SERVICES, CORE | [address] | | | + + + + + MAGNESIUM, PLASMA (05/01/2012 6:03 AM PDT) + +-------+ + + + | Component | Value | Ref Range | Performed | Pathologist | | | | | At | Signature | + +-------+ + + + | MAGNESIUM,P | 1.9 | 1.8 - 2.5 mg/dL | [facility] | | | LASMA | | | [...] | + + + + + | [facility] | [address] [facility] | [place] [address] | | | SERVICES, CORE | NEAL [...] | + + + + + | [facility] | [address] | [place] [address] | | | SAM ALONSO | NEAL [...] (H) | 60 - 99 mg/dL | [facility] - | | | GLUCOSE, | [...] NAELAM | [address] | [place], [place] | | | [facility]TE OF [facility] | [address] | [address] | | | TESTS | | | [...] BRUNNER | [address] | [place], [place] | | | JOHN CONTE OF [facility] | [facility] | [address] | | | TESTS | | | [...] | + + + + + | [facility] | [address] | [place] [address] | | | SERVICES, CORE | NEAL [...] + + + | [facility] | [address] | [place] [address] | | | SERVICES, CORE | NEAL [...] [facility] | [address] | [place] [address] | | | SERVICES, [facility] | [address] | | | + [...] [facility] | [address] | [place] [address] | | | SERVICES, CORE | [address] | | | + + + + + OPERATION RECORD (04/29/2012 5:13 PM PDT) + + | Transcriptions | + + | Ruba Muhammad MD - 04/28/2012 10:30 PM PDT Date: | | 04/28/2012ttending Surgeon: Cornelia Knutson M.D.Mammal Keeper(s): | | VENKATA Mcclainreoperative Diagnosis(es):Gallbladder | | [...] with an 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 Her pathology was reviewed at [facility]. She underwent aCT scan, which | | [...] for RSI | | was completed.Cornelia Knutson M.D.[facility] ([facility])Professor | | and Vice-Lobbyist of SurgeryThe Shahriar Nava Chair for Pancreatic Disease | | ResearchPancreatic/ HepatoBiliary and Foregut Working GroupsMail Code [id number] [facility] | | [place], [place]. [address]Qrifv Fax [phone] | | [phone]: [email or web address] M.[email or web address].Professor and Vice-Lobbyist of | | SurgeryThe Shahriar Nava Chair for Pancreatic Disease ResearchSaint [facility] West Hospital | | [place] ([facility])Division of Gastrointestinal and General Surgery / [id number] / | | [id number] / [id number] / T: 04/28/2012 | |with electrocautery. Biopsy [...] case we needed to perform a | |Cable maneuver. We then finished the dissection identifying [...] | | | |Cornelia Knutson M.D. | |[facility] ([facility]) | |Professor and Vice-Lobbyist of Surgery | |The Shahriar Nava Chair for Pancreatic Disease Research | |Pancreatic/ HepatoBiliary and Foregut Working Groups | |Mail Code [id number] | |[address] [place] [address] | |[place], [place]. [address] | | | | | |email: [email or web address] | | | | | |Cornelia Knutson M.D. | |Professor and Vice-Lobbyist of Surgery | |The Shahriar Nava Chair for Pancreatic Disease Research | |[facility] ([facility]) | |Division of Gastrointestinal and General Surgery | | | |JS / HS | |[id number] / [id number] / [id number] / | | | | | + [...] [facility] | [address] | [place] [address] | | | SERVICES, CORE | PARK [...] | + + + + + | [facility] | [address] [facility] | [place] [address] | | | SERVICES, CORE | PARK [...] | + + + + + | [facility] | [address] | [place] [address] | | | SERVICES, CORE | NEAL [...] | + + + + + | [facility] | [address] | [place] [address] | | | SERVICES, CORE | NEAL [...] in | | | | | | [facility]. No | | | | | | pneumothorax or | | | | | | effusion. Clear lungs. | | | | | | Normalcardiac and | | | | | | mediastinal contours. | | | | | | Attending Radiologists: | | | | | | SATHISH CASTILLO MDAuthor: | | | | | | SATHISH CASITLLO MD I have | | | | [...] | | + +---------+ + + | [facility] DEPARTMENT OF | | | | [...] [facility] | [address] | [place] [address] | | | SERVICES, CORE | PARK [...] | + + + + + | [facility] | [address] | [place] [address] | | | SERVICES, CORE | PARK [...] | + + + + + | [facility] | [address] | [place] [address] | | | SERVICES, CORE | PARK [...] | + + + + + | [facility] | [address] | [place] [address] | | | SERVICES, CORE | [address] | | | + + + + + INR (04/28/2012 2:34 PM PDT) + +-------+ + + + | Component | Value | Ref Range | Performed | Pathologist | | | | | At | Signature | + +-------+ + + + | INR | 1.11 | 0.90 - 1.20 INR | [facility] | | | | | | LABORATORY [...] | + + + + + | [facility] | [address] | [place] [address] | | | SAM ALONSO | PARK [...] - [facility] | [address] | [place], [place] | | | JOHN CONTE OF CARE | [address] | [address] | | | TESTS | | | [...] [facility] | [address] | [place], [place] | | | JOHN CONTE OF [facility] | [address] | [address] | | | TESTS | | | [...] KANNAN | [address] | [place], [place] | | | JOHN CONTE OF CARE | [address] | [address] | | | TESTS | | | [...] KANNAN | [address] | [place], [place] | | | JOHN CONTE OF [facility] | [address] | [address] | | | TESTS | | | [...] BRUNNER | [address] | [place], [place] | | | JOHN CONTE OF CARE | [address] | [address] | | | TESTS | | | [...] MARQU[facility] | [address] | [place], [place] | | | JOHN CONTE OF CARE | [address] | [address] | | | TESTS | | | [...] MARQUAM | | | | | | JHON CONTE | | | | | | [...] [facility] | [address] | [place], [place] | | | JOHN CONTE OF [facility] | [facility] | [address] | | | TESTS | | | [...] + + + | [facility] | [address] | [place], [place] | | | JOHN CONTE OF [facility] | [address] | [address] | | | TESTS | | | [...] bed. | | | | | | Geospatial Extractor Analysis | | | | | | sections [...] vein. | | | | | | Geospatial Extractor Analysis | | | | | | sections [...] | | | | | | E2E3-4, patient intake representative | | | | | | [...] | + + + + + | [facility] | [address] | [place] [address] | | | PATHOLOGY | [address] [...]
--- OUTSIDE RECORDS SUMMARY | ~2019-07-09 | XMS | Encounter Summary ---
Demographics + + + | Address | [address] | | | [place] [address] | + + + | Home Phone [...] + | Author | [facility] | | | and [facility] | + + + | Organization | [facility] | | | and [facility] | + + + | Address | Unknown | + + + | Phone | Unavailable | + + + Support + + + + + | Name | Relationship | Address | Phone | + + + + + | Poncho Oquendo | ECON | [address] | | | | | [facility] [place] [place] | | | | | [address] | | + + + + + | Marta Upton | ECON | [place], [place] | | | | | [address] | | + + + + + Care Team Providers + +------+ + | Care Psychotherapist Name | Role | Phone | + +------+ + PCP | Unavailable | + +------+ + Encounter Details +--------+ + + + + | Date | Type | Department | Care Team | Description | +--------+ + + + + | 10/19/ | Hospital | [facility] | | | | 2012 - | Encounter | [facility] | | [facility] [address] | | | | 11/13/ | | [place] | | | | 2012 | | [address] | | | | | | [phone] | | | +--------+ + + + [...] | | | | | | [place] [address] | | | | | | [phone] | | | | | | | | +--------+---------+ + + + documented as of this encounter Procedures + +--------+ + + + | Procedure Name | Priori | Date/Time | Associated Diagnosis | Comments | | | ty | | | | + +--------+ + + + | CA 19-9, QUANT | Routin | 10/19/2012 | | Results for this | | | e | 8:04 AM | | procedure are in the | | | | PDT | | results section. | + +--------+ + + + | CBC WITH | Routin | 10/19/2012 | | Results for this | | DIFFERENTIAL | e | 8:04 AM | | procedure are in the | | | | PDT | | results section. | + +--------+ + + + | LACTATE | Routin | 10/19/2012 | | Results for this | | DEHYDROGENASE | e | 8:04 AM | | procedure are in the | | | | PDT | | results section. | + +--------+ + + + | COMPREHENSIVE | Routin | 10/19/2012 | | Results for this | | METABOLIC PANEL | e | 8:04 AM | | procedure are in the | | | | PDT | | results section. | + +--------+ + + + documented in this encounter Results CBC with Differential (10/19/2012 8:04 AM PDT) + + + + + [...] (L) | 4.0 - 11.0 K/uL | [facility] | | | | | [...] + + + + | Hemoglobin | 15.1 | 11.5 - 16.0 | [facility] | | | | | gm/dL | [facility] | | | | | [facility] | | | | | | [facility] - | | | | | | LABORATORY | | + + + + + + | Hematocrit | 43.8 | 34.0 - 47.0 % | [facility] | | | | | | [facility] | | | | | | [facility] | | | | | | [facility] - | | | | | | LABORATORY | | + + + + + + | MCV | 101.8 (H) | 83.0 - 101.0 fL | [facility] | | | | | | [facility] | | | | | | [facility] | | | | | | C[facility] - | | | | | | LABORATORY | | + + + + + + | MCH | 35.1 (H) | 28.0 - 35.0 pg | [facility] | | | | | | [facility] | | | | | | [facility] | | | | | | CENTER - | | | | | | LABORATORY | | + + + + + + | MCHC | 34.5 | 32.0 - 36.0 | [facility] | | | | | g/dL | [facility] | | | | | | [facility]ICAL | | | | | | CENTER - | | | | | | LABORATORY | | + + + + + + | RDW-CV | 18.5 (H) | <15.0 % | [facility] | | | | | | [facility] | | | | | | [facility]ICAL | | | | | | CENTER - | | | | | | LABORATORY | | + + + + + + | Platelet | 143 | 140 - 440 K/uL | [facility] | | | Count | | | [facility] | | | | | | [facility]ICAL | | | | | | CENTER - | | | | | | LABORATORY | | + + + + + + | % | 54.3 | 45 - 75 % | [facility] | | | Neutrophils | | | [facility] | | | | | | MEDICAL | | | | | | CENTER - | | | | | | LABORATORY | | + + + + + + | % | 13.9 (L) | 20 - 45 % | [facility] | | | Lymphocytes | | | [facility] | | | | | | MEDICAL | | | | | | CENTER - | | | | | | LABORATORY | | + + + + + + | % Monocytes | 22.1 (H) | 4 - 12 % | [facility] | | | | | | [facility] | | | | | | [facility]ICAL | | | | | | CENTER - | | | | | | LABORATORY | | + + + + + + | % | 8.3 (H) | 0 - 5 % | [facility] | | | Eosinophils | | | [facility] | | | | | | MEDICAL | | | | | | CENTER - | | | | | | LABORATORY | | + + + + + + | % Basophils | 1.4 (H) | 0 - 1 % | [facility] | | | | | | [facility] | | | | | | MEDICAL | | | | | | CENTER - | | | | | | LABORATORY | | + + + + + + | Absolute | 1.5 | 1.5 - 6.6 K/uL | [facility] | | | Neutrophils | | | [facility] | | | | | | MEDICAL | | | | | | CENTER - | | | | | | LABORATORY | | + + + + + + | Absolute | 0.4 (L) | 0.6 - 3.2 K/uL | [...] + | [facility] | [address] | [place] | [phone] | | [facility] | | [address] | | | - LABORATORY | | | | + + + + + | [facility] | [address] | [place] | | | [facility] | | [address] | | | - LABORATORY | | | | + + + + + CA 19-9, Quant (10/19/2012 8:04 AM PDT) + + + + + [...] [facility] | | | | [facility] [...] [address] | | | | | | [address], [place], [place] | | | | | | [address] CLIA: | | | | | | [id number] | | | | + + + + + + + + | Specimen | + + | | + + + + + + + | Performing | Address | City/State/Zipcode | Phone Number | | Organization | | | | + + + + + | [facility] | [address] | [place] | [phone] | | [facility] | | [address] | | | - LABORATORY | | | | + + + + + | [facility] | [address] | [place] | | | [facility] | | [address], [facility] | | | - LABORATORY | | | | + + + + + Comprehensive Metabolic Panel (10/19/2012 8:04 AM PDT) + + + + + + | Component | Value | Ref Range | Performed | Pathologist | | | | | At | Signature | + + + + + + | Glucose | 109 | 70 - 109 mg/dL | [facility] | | | | | | [facility] | | | | | | MEDICAL | | | | | | CENTER - | | | | | | LABORATORY | | + + + + + + | Calcium | 9.1 | 8.3 - 10.5 | [facility] | | | | | mg/dL | [facility] | | | | | | MEDICAL | | | | | | CENTER - | | | | | | LABORATORY | | + + + + + + | Alkaline | 116 (H) | 40 - 110 IU/L | [facility] | | | Phosphatase | | | [facility] | | | | | | MEDICAL | | | | | | CENTER - | | | | | | LABORATORY | | + + + + + + | AST | 26 | 10 - 42 IU/L | [facility] | | | | | | [facility] | | | | | | MEDICAL | | | | | | CENTER - | | | | | | LABORATORY | | + + + + + + | ALT | 22 | 6 - 45 IU/L | [facility] [...] 3.9 | 3.2 - 5.0 gm/dL | [facility] | | | | | | [facility] | | [...] + + + + | BUN/Creatin | 8.3 (L) | 12 - 20 | [facility] [...] + + + + | K | 4.5 | 3.5 - 5.1 mEq/l | [facility] [...] + + + | Anion Gap | 11.5 | 6.0 - 17.0 | [facility] | [...] + | [facility] | [address] | [place], [place] | [phone] | | [facility] | | [address] | | | - LABORATORY | | | | + + + + + | [facility] | [address] | [place] | | | [facility] | | [address] [place] [address] | | | - LABORATORY | | | | + + + + + Lactate Dehydrogenase (10/19/2012 8:04 AM PDT) + +-------+ + + + | Component | Value | Ref Range | Performed | Pathologist | | | | | At | Signature | + +-------+ + + + | LDH TOTAL | 174 | 91 - 180 IU/L | [facility] [...] [address] | [place] | [phone] | | [facility] | | [address] | | | - LABORATORY | | | | + + + + + | [facility] | [address] | [place] | | | [facility] | | [address] | | | - LABORATORY | | | | + + + + + documented in this encounter Visit Diagnoses Not on filedocumented in this encounter"
--- OUTSIDE RECORDS SUMMARY | ~2019-07-09 | XMS | Encounter Summary ---
Demographics + + + | Address | [address] | | | [place] [address] | + + + | Home Phone [...] Providers + +------+ + | Care Cover Remover Name | Role | Phone | + +------+ + | Tomasa Wagner | PCP | | + +------+ + Encounter Details +--------+ + + + + | Date | Type | Department | Care Team | Description | +--------+ + + + + | 06/09/ | Abstract | [facility] | Tai Stanton, | | | 2012 | | [place] [facility] [address] | [address] | | | | | [address] | [address] | | | | | Mailcode: Center | [place], [place] | | | | | [facility] and | [address] | | | | | Healing, [address] | [phone] | | | | | [place], [place] | | | | | | [address] | | | | | | [phone] | | | +--------+ + + + [...]
--- OUTSIDE RECORDS SUMMARY | ~2019-07-09 | XMS | Encounter Summary ---
Demographics + + + | Address | [address] | | | [place] [address] | + + + | Home Phone [...] Team Providers + +------+ + | Care Professor Of Historical Theology Name | Role | Phone | + [...] | | 2015 | | [facility] | [address] | (Miguel Seymour) | | | | [address] | [facility] | | | | | [address] | [place], [place] | | | | | Pavilion, [facility] floor | [address] | | | | | [place], [place] | [phone] | | | | | [address] | | | | | | [phone] | | | +--------+ + + + [...]
--- OUTSIDE RECORDS SUMMARY | ~2019-07-09 | XMS | Encounter Summary ---
Demographics + + + | Address | [address] | | | [place] [address] | + + + | Home Phone [...] Team Providers + +------+ + | Care Taxicab Coordinator Name | Role | Phone | [...] Telephone follow-up | | 2012 | | [place] [facility] [address] | [address] [facility] | (Pt requested | | | | Eric[address] Borges | [address] | reports be sent to | | | | Mailcode: Center | [place], [place] | outside ) | | | | for Health and | [address] | | | | | [place] [address] | [phone] | | | | | [place], [place] | | | | | | [address] | | | | | | [phone] | | | +--------+ + + + [...]
--- OUTSIDE RECORDS SUMMARY | ~2019-07-09 | XMS | Encounter Summary ---
Demographics + + + | Address | [address] | | | [place] [address] | + + + | Home Phone [...] Team Providers + +------+ + | Care Stone Circular Sawyer Name | Role | Phone | [...] | 6A Intra Op 3[address] | Cornelia Knutson, | DIAGNOSTIC | | 2012 | | HIEN Carreon | [address] [facility] | LAPAROSCOPY WITH | | | | Rd [facility] | [facility] | BIOPSY, OPEN SEGMENT | | | | Hospital Admitting | [place], [place] | 4B/5 LIVER | | | | Desk Located on the | [address] | RESECTION, PORTAL | | | | 9th floor | [phone] | LYMPHADENECTOMY | | | | [place], [place] | | Specimens x 6 (FS) | | | | [address] | | | +--------+---------+ + + + [...] acute cholecystitis. Her pathology was reviewed at [facility]. She underwent a CT scan, [...] working on arranging an appointm ent with [facility] Oncology for treatment planning. FINAL [...] severe diarrhea.During normal business hours please call [facility] loreto .For 'after hours' URGENT problems please call the [facility] drum dyeing machine operator at and ask for the "Blue Surgery resident on-call". Other Discharge Orders and Instructions Medication Refill Instructions: For non-narcotic medication refills, please contact your pharmacy. If you think you will need a refill for the , you must call by 3pm on to [...] None Your Follow-Up Plan Follow up with [facility] HEMATOLOGY [facility]. (Please expect a call from the Oncology clini c in the next several days to schedule an appointment with either Dr. Grey or Dr. Ledesma ) Contact information: [address] [facility] [address] Future Appointments Date & Time Provider Department Dept Phone Center 05/17/2012 11:30 AM CORNELIA KNUTSON MD [facility] [phone] [facility] Discharging Physician: MARCO ANTONIO BEATTY NP Attending Physician: MD Marco Antonio Mauricio RN, MSN, PSYCHOMETRIST [facility] Blue Surgery Pager# [phone] 9:37 AM 05/04/2012 documented in this enc [...] % Max: 99 % Date 05/03/12699 - 05/04/1265805/04/12699 - 05/05/12 0659(Discharged) Shift 1354-7234 9055-0138 9021-4996 Daily Total 1130-2384 3658-2247 8382-7225 Daily Total I N T A K E P.O. 925 227 558 4346 500 500 I.V. 5 10 15 Shift Total 930 133 923 7519 500 500 O U T P U T Urine 1050 2951 797 0895 400 400 Urine 1050 9151 898 0835 400 400 Other Stool 1 1 Shift Total 1050 0611 458 7775 400 400 NET -120 -1090 205 -1005 100 100 General: Awake, alert, and oriented x4, no acute distress, VSS HEENT:NC/AT, anicteric Pulm: Respirations even/unlabored, chest expansion symmetrical Cardio: RRR Abdomen: Soft. Appropriately tender to palpation. Non-distended. MS: Moves all extremities well, Warm and well perfused Derm: No erythema, edema, ecchymosis Wound: abdominal incision with rosie c/d/i Activity: oob ad mary Assessment: Maria Elena Upton, NICOLE#6, with Gallbladder cancer S/p Diagnostic laparoscopy with [...] Attending Physician: Dr. Romy Beatty RN, MSN, PSYCHOMETRIST [facility] Blue Surgery Pager# [phone] 12:54 PM 05/04/2012 Current Inpatient Medications Medication [...] Parish Arias MD - 5:51 AM PDT [facility] Department of Surgery Blue Surgery [...] index is 33.07 kg/(m^2). Date 04/29/12699 - 04/30/1259 04/30/12699 - 05/01/12 0659 Shift 1143-0004 8098-9312 9729-7347 Daily Total 8831-0351 4566-1378 0826-8483 Daily Total I N T A K E P.O. 620 723 789 0351 P.O. 620 362 438 0595 I.V. 1977.33 977.5 982.5 3937.33 0 0 [...] O U T P U T Urine 797 945 5322 2004 I/O Urinary Drain Output (Urinary Cath Placement López) 895 103 6460 2004 Shift Total 489 207 2818 2005 NET 2415.83 837.5 307.5 3560.83 0 [...] tomorrow Parish Blackburn MD Surgery, R1 Pager: [phone] ilvia De lToro NP - 05/01/2012 2:19 PM PDTPain fairly well controlled on oral medications. No longer nauseated, tolerating 10 mg oxycodone Epidural catheter discontinued, tip intact. APS will sign off, please call us back if there are any pain related concerns for us to add ress. Silvia Del Toro NP Adult Pain Service Pager [phone] Team Pager [phone] Silvia Mckeon NP - 05/01/2012 8:56 AM [...] and summary of old medical records (source: [employer]), as summarized in the body of the note. SILVIA DEL TORO NP BILLING INFORMATION [facility] DEPARTMENT: [id number] Place of Service:- Inpatient Date of Service: 05/01/2012 CSN: [id number] Suggested Modifier: None Suggested CPT: 99560 - Daily mgmt epidural/subarachnoid drug administration Prolonged service: n/a Parish Arias MD - 05/01/2012 5:44 AM PDT [facility] Department of Surgery Blue Surgery [...] Intravenous Q8H PRN 1,000 mg ( 3 2140) nalbuphine (aka NUBAIN) injection 2.5 mg 2.5 [...] Body mass index is 34.97 kg/(m^2). Date 04/29/12 07 - 04/30/12 0659 04/30/12 07 - 05/01/12 0659 Shift 8236-4114 2297-9604 4994-5737 Daily Total 0083-6141 8279-4712 0390-9694 Daily Total I N T A K E P.O. 620 732 053 5376 P.O. 620 376 055 5013 I.V. 1977.33 977.5 982.5 3937.33 0 0 [...] O U T P U T Urine 885 995 8534 2004 I/O Urinary Drain Output (Urinary Cath Placement López) 161 598 0189 2004 Shift Total 147 084 2559 2005 NET 2415.83 837.5 307.5 3560.83 0 [...] course Parish Blackburn MD Surgery, R1 Pager: [phone] Parish Arias MD - 11:59 AM PDT [facility] Department of Surgery Blue Surgery [...] index is 33.45 kg/(m^2). Date 04/29/12699 - 04/30/1265804/30/12699 - 05/01/12658 Shift 5494-6904 5639-8887 3689-9234 Daily Total 6343-4380 2402-5841 4951-8597 Daily Total I N T A K E P.O. [address] 128 527 9484 P.O. 620 228 979 9398 I.V. 1977.33 977.5 982.5 3937.33 0 0 [...] O U T P U T Urine 528 844 8895 2004 I/O Urinary Drain Output (Urinary Cath Placement López) 259 593 8102 2004 Shift Total 386 445 0348 2004 NET 2415.83 837.5 307.5 3560.83 0 [...] today. Encourage ambulation. Will jassi de oliveira d/alex López tomorrow 2. GI: Continue sips of clears until flatus 3. PT/OT 4. Incentive spirometry 5. Proph: lovenox 40mg qhs 6. Dispo: pending clinical course Parish Blackburn MD Surgery, R1 Pager: [phone] Sasha Antony MD - 04/30/2012 7:03 AM [...] primary service. JOSE MALAGON MD BILLING INFORMATION [facility]PART[facility]: [id number] Place of Service:- Inpatient Date of Service: 04/30/2012 CSN: [id number] Suggested Modifier: GC - Resident Involved Suggested CPT: 98849 - Daily mgmt epidural/subarachnoid drug administration Prolonged [...] the floor later today. SASHA DALY MD [address] [facility], 4th Floor Mail Code: CH4P [place], [place] [address] RosiojMatilde melvin ma - 04/29/2012 1:03 PM PDT [facility] INPATIENT PROGRESS NOTE Hospital Day: 1 Author; [...] if not working though, possible transition to [facility] Hypotension Fluid bolus as needed to [...] no need for intervention Dispo TRANSFER TO [facility] ONLY Sasha Antony MD - 04/29/2012 7:43 [...] making: N/a JOSE MALAGON MD BILLING INFORMATION [facility]: [id number] Place of Service:61585- Inpatient Date of Service: 04/29/2012 CSN: [id number] Suggested Modifier: GC - Resident Involved Suggested CPT: 93015 - Daily mgmt epidural/subarachnoid drug administration Prolonged [...] kg/(m^2). Intake/Output Summary (Last 24 hours) at 04/29/12648 Last data filed at 04/29/12 06 Gross per 24 hour Intake 5853.2 ml [...] MD Department of Obstetrics & Gynecology, PGY1 [facility] Pager [phone] documented in thi s encounter Plan of [...] | + +--------+ + + + | NAHOMY PEREA) POC | Routin | 04/28/2012 | Gallbladder cancer | Results for this | | ISTAT | e | 8:38 AM | (HCC) | procedure are in the | | | | PDT | | results section. | + +--------+ + + + | FREDIS-BHAVNA POC | Routin | 04/28/2012 | Gallbladder cancer | Results for this | | | e | 8:38 AM | (HCC) | procedure are in the | | | | PDT | | results section. | + +--------+ + + + | SODIUM POC | Routin | 04/28/2012 | Gallbladder cancer | Results for this | | | e | 8:38 AM | (HCC) | procedure are in the | | | | PDT | | results section. | + +--------+ + + + | KRISTINA POC | Routin | 04/28/2012 | Gallbladder [...] [facility] | [address] | [place] [address] | | | SERVICES, CORE | P[address] [...] | + + + + + | [facility] | [address] | [place] [address] | | | SERVICES, CORE | PARK [...] | + + + + + | [facility] | [address] | [place] [address] | | | SERVICES, CORE | NEAL [...] | + + + + + | [facility] | [address] | [place] [address] | | | SERVICES, CORE | PARK [...] | + + + + + | [facility] | [address] | [place] [address] | | | SERVICES, CORE | [address] | | | + + + + + MAGNESIUM, PLASMA (05/03/2012 6:00 AM PDT) + +-------+ + + + | Component | Value | Ref Range | Performed | Pathologist | | | | | At | Signature | + +-------+ + + + | MAGNESIUM,P | 1.8 | 1.8 - 2.5 mg/dL | [facility] | | | [facility] | | | LABORATORY | | | [...] | + + + + + | [facility] | [address] | [place] [address] | | | SERVICES, CORE | NEAL [...] | + + + + + | [facility] | [address] | [place] [address] | | | SERVICES, CORE | NEAL [...] [facility] | [address] | [place] [address] | | | SERVICES, CORE | PARK [...] | + + + + + | [facility] | [address] | [place] [address] | | | SERVICES, CORE | NEAL [...] (H) | 60 - 99 mg/dL | [facility] - | | | GLUCOSE, | | [...] BRUNNER | [address] | [place], [place] | | | JOHN CONTE OF ARJUN | [address] | [address] | | | TESTS | | | [...] | + + + + + | [facility] | [address] | [place] [address] | | | SERVICES, CORE | PARK [...] [facility] | [address] | [place], [place] | | | JOHN CONTE OF CARE | [address] | [address] | | | TESTS | | | [...] | + + + + + | [facility] | [address] | [place] [address] | | | GAVIN, CORE | [address] | | | + + + + + MAGNESIUM, PLASMA (05/01/2012 6:03 AM PDT) + +-------+ + + + | Component | Value | Ref Range | Performed | Pathologist | | | | | At | Signature | + +-------+ + + + | MAGNESIUM,P | 1.9 | 1.8 - 2.5 mg/dL | [facility] | | | [facility] | | | LABORATORY | | | [...] | + + + + + | [facility] | [address] | [place] [address] | | | SERVICES, CORE | NEAL [...] | + + + + + | [facility] | [address] | [place] [address] | | | SERVICES, CORE | NEAL [...] (H) | 60 - 99 mg/dL | [facility] - | | | GLUCOSE, | | [...] BRUNNER | [address] | [place], [place] | | | JOHN CONTE OF [facility] | [facility] | [address] | | | TESTS | | | [...] K[facility] | [address] | [place], [place] | | | JOHN CONTE OF ARJUN | [address] | [address] | | | TESTS | | | [...] (L) | 150 - 400 K/cu | GWEN | | | COUNT | | mm [...] | + + + + + | [facility] | [address] | [place] [address] | | | SERVICES, CORE | NEAL [...] | + + + + + | [facility] | [address] | [place] [address] | | | GAVIN, CORE | [address] | | | + + + + + MAGNESIUM, PLASMA (04/30/2012 6:42 AM PDT) + +-------+ + + + | Component | Value | Ref Range | Performed | Pathologist | | | | | At | Signature | + +-------+ + + + | MAGNESIUM,P | 1.8 | 1.8 - 2.5 mg/dL | [facility] | | | [facility] | | | LABORATORY | | | [...] | + + + + + | [facility] | [address] | [place] [address] | | | SERVICES, CORE | NEAL [...] + + | [facility] | [address] | [place] [address] | | | SERVICES, [facility] | [facility] | | | + + + + + OPERATION RECORD (04/29/2012 5:13 PM PDT) + + | Transcriptions | + + | Ruba Muhammad MD - 04/28/2012 10:30 PM PDT Date: | | 04/28/2012ttending Surgeon: Cornelia Knutson M.D.Phd Intern(s): | | VENKATA Mcclainreoperative Diagnosis(es):Gallbladder | | [...] with an incidental finding of | | K2yldqcpnuhxg adenocarcinoma at her recent laparoscopic cholecystectomy foracute | | cholecystitis. Her pathology was reviewed at [facility]. She underwent aCT scan, which [...] tissue was washed out andloose | | orsie were used to reapproximate the skin. At [...] for RSI | | was completed.Cornelia Knutson M.D.[facility], [place], [facility] ([facility])Professor | | and Vice-Machine Edge Bander of SurgeryThe Shahriar Nava Chair for Pancreatic Disease | | ResearchPancreatic/ HepatoBiliary and Foregut Working GroupsMail Code [id number] [facility] | | [place], [place]. [address]Icusm Fax (180) | | [phone]: [email or web address] Knutson M.D.Professor and Vice-Machine Edge Bander of | | SurgeryThe Shahriar Nava Chair for Pancreatic Disease ResearchFort Loudoun Medical Center, [place], [facility] | | [place] ([facility])Division of Gastrointestinal and General Surgery / [id number] / | | [id number] / [id number] / T: 04/28/2012 | |with electrocautery. Biopsy [...] | | | |Cornelia Knutson M.D. | |[facility] ([facility]) | |Professor and Vice-Machine Edge Bander of Surgery | |The Shahriar Nava Chair for Pancreatic Disease Research | |Pancreatic/ HepatoBiliary and Foregut Working Groups | |Mail Code [id number] | |[address] [facility] | |[place], [place]. [address] | | | | | |email: [email or web address] | | | | | |Cornelia Knutson M.D. | |Professor and Vice-Machine Edge Bander of Surgery | |The Shahriar Nava Chair for Pancreatic Disease Research | |[facility] ([facility]) | |Division of Gastrointestinal and General Surgery | | | |JS / HS | |[id number] / [id number] / [id number] / | | | | | + + CBC (04/29/2012 1:43 AM PDT) + + + + + + | Component | Value | Ref Range | Performed | Pathologist | | | | | At | Signature | + + + + + + | WBC COUNT | 10.5 | 4.4 - 11.0 K/cu | [facility] | | | | | mm | [...] [facility] | [address] | [place] [address] | | | SERVICES, CORE | PARK [...] | + + + + + | [facility] | [address] | [place] [address] | | | SERVICES, CORE | [address] | | | + + + + + MAGNESIUM, PLASMA (04/29/2012 1:43 AM PDT) + +-------+ + + + | Component | Value | Ref Range | Performed | Pathologist | | | | | At | Signature | + +-------+ + + + | MAGNESIUM,P | 2.5 | 1.8 - 2.5 mg/dL | [facility] | | | LASMA | | | [...] | + + + + + | [facility] | [address] | [place] [address] | | | SERVICES, CORE | PARK [...] | + + + + + | [facility] | [address] | [place] [address] | | | SERVICES, CORE | PARK [...] in | | | | | | [facility]. No | | | | | [...] [facility] | [address] | [place] [address] | | | SERVICES, CORE | PARK [...] | + + + + + | [facility] | [address] | [place] [address] | | | SERVICES, CORE | PARK [...] 2.5 mg/dL | [facility] | | | [facility] | | | LABORATORY | | | [...] | + + + + + | [employer] | [address] | [place] [address] | | | SERVICES, CORE | NEAL [...] [facility] | [address] | [place] [address] | | | SERVICES, CORE | PARK [...] | + + + + + | [facility] | [address] | [place] [address] | | | SAM ALONSO | NEAL [...] | 1.0 | 0.5 - 1.6 | [facility] - | | | | | mmol/L [...] + + + + | [facility] | [address] | [place], [place] | | | JOHN CONTE OF ARJUN | [facility] | [address] | | | TESTS | | | | + + + + + SODIUM (ART) POC SOR (04/28/2012 8:38 AM PDT) + [...] [facility] | [address] | [place], [place] | | | DG POINT OF CARE | [address] | [address] | | | TESTS | | | | + + + + + POTASSIUM (ART)MAYLIN (04/28/2012 8:38 AM PDT) + +-------+ + [...] [facility] | [address] | [place], [place] | | | DG POINT OF CARE | [address] | [address] | | | TESTS | | | [...] + | [facility] | [address] | [place], [place] | | | JOHN CONTE OF CARE | [address] | [address] | | | TESTS | | | | + + + + + CHLORIDE (ART), POC SOR (04/28/2012 8:38 AM PDT) [...] + + + | [facility] | [address] | [place], [place] | | | DG POINT OF CARE | [address] | [address] | | | TESTS | | | | + + + + + CALCIUM (ART)MAYLIN (04/28/2012 8:38 AM PDT) + +-------+ + [...] [facility] | [address] | [place], [place] | | | DG POINT OF CARE | [address] | [address] | | | TESTS | | | [...] [facility] | | | | | | DG, POINT | | | | | | OF CARE | | | | | | TESTS | | + +-------+ + + + | METHEMOGLOB | 0.3 | 0.0 - 1.9 % | [facility] | | | IN, POC | | | [facility] | | | | | | HILL, POINT | | | | | | OF CARE | | | | | | TESTS | | + +-------+ + + + | HEMATOCRIT, | 40.0 | 36.0 - 46.0 % | [facility] - | | | POC | | | [facility] | | | | | | DG, POINT | | | | | | [...] + | [facility] | [address] | [place], [place] | | | JOHN CONTE OF CARE | [address] | [address] | | | TESTS | | | [...] | | | POC | | | DG POINT | | | | | | OF CARE | | | | | | TESTS | | + + + + + + | PCO2 | 46 (H) | 32 - 43 mmHg | [facility] | | | ARTERIAL, | | | [facility] | | | POC | | | DG POINT | | | | | | OF CARE | | | | | | TESTS | | + + + + + + | O2 SAT | 100.4 (H) | 92.0 - 98.0 % | [facility] - | | | ARTERIAL, | | | [facility] | | | POC | | | DG POINT | | | | | | OF CARE | | | | | | TESTS | | + + + + + + | HCO3 | 25.9 | 21 - 28 mmol/L | [facility] - | | | ARTERIAL, | | | [facility] | | | POC | | | HILL POINT | | | | | | [...] [facility] | [address] | [place], [place] | | | DG POINT OF CARE | [address] | [address] | | | TESTS | | | [...] Salinas, | | | | | | M.Hamzah/PathologistT: | | | | | | | [...] Diane | | | | | | Goyo, P.A. (ASCP), and | | | | [...] bed. | | | | | | Pellet Post Inspector | | | | | | sections [...] vein. | | | | | | Pellet Post Inspector | | | | | | sections [...] | | | | | | [id number], players club representative | | | | | | [...] [place] | | | | | | VENKATAathologistElectronica | | | | | | marium Signed 05/08/2012 | | | | | | 2:37PM | | | | + + + + + + + + | Specimen | + + | | + + + + + + + | Performing | Address | City/State/Zipcode | Phone Number | | Organization | | | | + + + + + | [facility] | [address] | [place] [address] | | | PATHOLOGY | [address] [...] PDT | | | | | Starting Tue04/28/12 at 1050, | | | | | | | Until Tue04/28/12 at 1421 | | | | | | + +--------+ +------+------+ + +---+---+ | | | +---+---+ documented in this encounter
--- OUTSIDE RECORDS SUMMARY | ~2019-07-09 | XMS | Encounter Summary ---
Demographics + + + | Address | [address] | | | [place] [address] | + + + | Home Phone [...] | Author | [facility] | | | and Eduardoana | + + + | Organization | [facility] | | | and Eduardoana | + + + | Address | Unknown | + + + | Phone | Unavailable | + + + Support + + + + + | Name | Relationship | Address | Phone | + + + + + | Poncho Oquendo | ECON | [address] | | | | | [facility] [place] | | | | | [address] | | + + + + + | Marta Upton | ECON | [address] | | | | | [address] | | + + + + + Care Team Providers + +------+ + | Care Tie Up Worker Name | Role | Phone | + +------+ + | No, Physician | PCP | Unavailable | + +------+ + Reason for Visit +--------+ + | Reason | Comments | +--------+ + | Other | Labs for Procedure | +--------+ + Encounter Details +--------+ + + + + | Date | Type | Department | Care Team | Description | +--------+ + + + + | 04/19/ | Telephone | [facility] | Pedro Green, | Other (Labs for | | 2019 | | UROLOGY [address] | DO [address] | Procedure) | | | | [address] | [place] [address] | | | | | [place], [place] | [phone] | | | | | [address] | | | | | | [phone] | | | +--------+ + + + [...] | | | | | [place] [address] | | | | | | [phone] | | | | | | | | +--------+---------+ + + + documented as of this encounter Visit Diagnoses Not on filedocumented in this encounter"
--- OUTSIDE RECORDS SUMMARY | ~2019-07-09 | XMS | Encounter Summary ---
Demographics + + + | Address | [address] | | | [place] [address] | + + + | Home Phone [...] Author | [facility] | | | and Eduardoana | + + + | Organization | [facility] | | | and Eduardoana | + + + | Address | Unknown | + + + | Phone | Unavailable | + + + Support + + + + + | Name | Relationship | Address | Phone | + + + + + | Poncho Oquendo | ECON | [address] | | | | | [place] | | | | | [address] | | + + + + + | Marta Upton | ECON | [place] | | | | | [address] | | + + + + + Care Team Providers + +------+ + | Care Bobbin Trucker Name | Role | Phone | + [...] | | Malignant | Reinaldo, | [address] | | | | | 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, | [place], | | | | | extrahepatic | MD [address] | [place] [address] | | | | | bile ducts | [address] | Phone: | | | | | Procedures | [place], | [phone] | | | | | [place] Abdomen | [place] [address] | Fax: | | | | | Pelvis w | Phone: | [phone] | | | | | Contrast | [phone] | | | | | | | Fax: | | | | | | | [phone] | | +--------+--------+ + + + + [...] | | Malignant | Reinaldo, | [address] [place] | | | | | neoplasm of | Epifanio Soler, | [place], | | | | | extrahepatic | MD [address] | [place] [address] | | | | | bile ducts | [address] | Phone: | | | | | Procedures | [place], | [phone] | | | | | [place] Abdomen | [place] [address] | Fax: | | | | | Pelvis w | Phone: | [phone] | | | | | Contrast | [phone] | | | | | | | Fax: | | | | | | | [phone] | | +--------+--------+ + + + + Encounter Details +--------+ + + + + | Date | Type | Department | Care Team | Description | +--------+ + + + + | 09/25/ | Hospital | [facility] | Erinaldo, | Malignant neoplasm | | 2014 | Encounter | [facility] [address] | Epifanio Soler MD [address] | of extrahepatic bile | | | | [place], | [address] [place] | ducts (HCC) | | | | [place] [address] | [place] [address] | | | | | [phone] | [phone] | | | | | | | [...] [address] | | | | | | [facility] [place] [address] | | | | | | [phone] | | | | | | | [...] + | MISCELLANEOUS LAB | | | [phone] | + +---------+ + + | MISCELANIOUS LAB | | | [phone] | + +---------+ + + documented in [...]
--- OUTSIDE RECORDS SUMMARY | ~2019-07-09 | XMS | Encounter Summary ---
Demographics + + + | Address | [address] | | | [place] [address] | + + + | Home Phone [...] Team Providers + +------+ + | Care Loom Technician Name | Role | Phone | [...] | [facility] [id number] | [address] [facility] | | | | | [address] Borges | [address] | | | | | Mailcode: Center | [place], [place] | | | | | [facility] | [address] | | | | | Healing, [address] | [phone] | | | | | [place], [place] | | | | | | [address] | | | | | | [phone] | | | +--------+ + + + [...]
--- OUTSIDE RECORDS SUMMARY | ~2019-07-09 | XMS | Encounter Summary ---
Demographics + + + | Address | [address] | | | [place] [address] | + + + | Home Phone [...] | Author | [facility] | | | and Eduardoana | + + + | Organization | [facility] | | | and Eduardoana | + + + | Address | Unknown | + + + | Phone | Unavailable | + + + Support + + + + + | Name | Relationship | Address | Phone | + + + + + | Poncho Oquendo | ECON | [address] | | | | | [place] | | | | | [address] | | + + + + + | Marta Upton | ECON | [place] | | | | | [address] | | + + + + + Care Team Providers + +------+ + | Care Furnace Cooler Name | Role | Phone | + +------+ + | Valeriy Carmona DO | PCP | | + +------+ + Encounter Details +--------+ + + + + | Date | Type | Department | Care Team | Description | +--------+ + + + + | 12/17/ | Hospital | [facility] | [facility], | Gallbladder cancer, | | 2015 | Encounter | MED CTR CHEMO | Epifanio Soler MD [address] | carcinoma (HCC) | | | | INFUSION [address] [place] | (Primary Dx); | | | | [place], | [place] [address] | Carcinoma of gall | | | | [place] [address] | [phone] | bladder (HCC); | | | | [phone] | | Neoplasm related | | | | | | pain (acute) | | | | | | (chronic) | +--------+ + + [...] [address] | | | | | | [place] [address] | | | | | | [phone] | | | | | | | | +--------+---------+ + + + documented as of this encounter Procedures + +--------+ + + + | Procedure Name | Priori | Date/Time | Associated Diagnosis | Comments | | | ty | | | | + +--------+ + + + | CBC W/AUTO | STAT | 12/17/2014 | Carcinoma of gall | Results for this | | DIFFERENTIAL | | 1:22 PM | bladder (HCC) | procedure are in the | | | | PST | | results section. | + +--------+ + + + | CA 19-9, QUANT | STAT | 12/17/2014 | Carcinoma of gall | Results for this | | | | 1:22 PM | bladder (HCC) | procedure are in the | | | | PST | | results section. | + +--------+ + + + | CA 125, QUANT | STAT | 12/17/2014 | Carcinoma of gall | Results for this | | | | 1:22 PM | bladder (HCC) | procedure are in the | | | | PST | | results section. | + +--------+ + + + | LACTATE | STAT | 12/17/2014 | Carcinoma of gall | Results for this | | DEHYDROGENASE | | 1:22 PM | bladder (HCC) | procedure are in the | | | | PST | | results section. | + +--------+ + + + | COMPREHENSIVE | STAT | 12/17/2014 | Carcinoma of gall | Results for this | | METABOLIC PANEL | | 1:22 PM | bladder (HCC) | procedure are in the | | | | PST | | results section. | + +--------+ + + + documented in this encounter Results Lactate Dehydrogenase (12/17/2014 1:22 PM PST) + +---------+ + + + | Component | Value | Ref Range | Performed | Pathologist | | | | | At | Signature | + +---------+ + + + | LDH TOTAL | 242 (H) | 91 - 180 U/L | COMPA [...] [address] | [place] | [phone] | | [facility] | | [address] | | | - LABORATORY | | [...] 7 | 7 - 18 mg/dL | COMPA | | | | | | [facility] | | | | | | [facility]ICAL | | | | | | [facility]ENTER - | | | | | | LABORATORY | | + + + + + + | Creatinine | 0.66 | 0.60 - 1.30 | [facility] | | | | | mg/dL [...] mL/min/1.73m2 | [facility] | | | ENGLISH | RATE,ESTIMATED | | MEDICAL | | | | mL/min/1.90z0Pntz than | | CENTER - | | [...] [address] | [place] | [phone] | | [facility] | | [address] | | | - LABORATORY | | [...] [address] | [place] | [phone] | | [facility] | | [address] | | | - LABORATORY | | [...] | | | | | | [place] [address] | | | | + + + + + + + + | Specimen | + + | Blood specimen | | (specimen) | + + + + + + + | Performing | Address | City/State/Zipcode | Phone Number | | Organization | | | | + + + + + | [facility] | [address] | [place] [address] | [phone] | + + + + + CA 125, Quant (12/17/2014 1:22 PM PST) [...] + | [facility] | 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 | + + | Carcinoma of gall bladder (HCC) Malignant neoplasm of gallbladder | + + | Neoplasm related pain (acute) (chronic) | + + documented in this encounter Administered Medications + +--------+ +------+------+------+ | Medication Order | MAR | Action | Dose | Rate | Site | | | Action | Date | | | | + +--------+ +------+------+------+ | alteplase (CATHFLO ACTIVASE) | Given | 12/18/19 | 2 mg | | | | injection 2 mg 2 mg, | | 15 1:52 | | | | | Intracatheter, ONCE, 12/17/14 | | PM PST | | | | | at 1400, For 1 dose | | | | | | + +--------+ +------+------+------+ +---+---+ | | | +---+---+ + +-------+ +-------+---+---+ | heparin 100 units/mL flush | Given | 12/18/19 | 500 | | | | injection 500 Units 500 Units (5 | | 15 3:28 | Units | | | | mL), Intracatheter, PRN, Line | | PM PST | | | | | Care, Starting 12/17/14 at | | | | | | | 1336 | | | | | | + +-------+ +-------+---+---+ +---+---+ | | | +---+---+ documented in this encounter"
--- OUTSIDE RECORDS SUMMARY | ~2019-07-09 | XMS | Encounter Summary ---
Demographics + + + | Address | [address] | | | [place] [address] | + + + | Home Phone [...] | [facility] | | | and Eduardoana | + + + | Organization | [facility] | | | and Eduardoana | + + + | Address | Unknown | + + + | Phone | Unavailable | + + + Support + + + + + | Name | Relationship | Address | Phone | + + + + + | Poncho Oquendo | ECON | [address] | | | | | [place] | | | | | [address] | | + + + + + | Marta Upton | ECON | [place] | | | | | [address] | | + + + + + Care Team Providers + +------+ + | Care Blackjack Pit Boss Name | Role | Phone | + [...] | Procedures | [address] | [place] [address] | | | | | [place] OFFICE | [place], | Phone: | | | | | OUTPATIENT | [place] [address] | [phone] | | | | | VISIT 25 | | Fax: | | | | | MINUTES | | [phone] | +--------+--------+ + + + + Encounter Details +--------+ + + + + | Date | Type | Department | Care Team | Description | +--------+ + + + + | 11/22/ | Hospital | [facility] | Vladimir Robles, | Cholangiocarcinoma | | 2015 | Encounter | MED CTR MEDICAL | MD Mondragon W ASHANTI | (HCC) (Primary Dx); | | | | ONCOLOGY CLINIC [address], | Pancytopenia due to | | | | [address] [place] | [place] [address] | antineoplastic | | | | [place] [address] | [phone] | chemotherapy (HCC) | | | | [phone] | | | +--------+ + + + [...] fr om the original. Hematology/Oncology Progress Note [facility] Pt. Name/Age/: uAra Upton 54 y.o. 1960 Med. Record Number: [id number] Date of admission: 11/22/2014 Identifying Statement: Aura Upton is a 54 y.o. female from [id number] [place] [address] with Recurrent Cholangiocarcinoma. The patient chart and medications were reviewed in detail and the patient was seen and exam ined. History of Present Illnesses, their Current Assessments and Plans: Gallbladder cancer, carcinoma Overview ACTIVE DIAGNOSES: Recurrent cholangiocarcinoma. 1. Presentation with biliary colic in March of 2012; status post cholecystectomy and hailee er biopsy by Dr. Brandon Garcia March 29, 2012, pathological specimen [id number], analyzed by Dr. Bowers of [facility] and was notable for a poorly-differentiated adenoc arcinoma of the gallbladder. Liver biopsy demonstrated mild portal inflammation. 2. On April 28, 2012, she successfully underwent an R0 resection by Dr. Tai Stanton at [facility], pathological specimen [id number] was notable for the absence of any residual carcinoma within the gallbladder bed. However, 2/8 regional lym ph nodes contained regionally metastatic disease. 3. Consultation by Dr. Elva Grey of the [facility] on May returned the recommendation for adjuvant chemoradiation therapy following [id number] as follows: Capecitabine at 750 mg/m sq [...] staging by Dr. Oziel Casillas of the [facility]. Pathological a nalysis was notable for 9.5 [...] 7. Consultation with Dr. Elva Grey the [facility] in June 26 015 who recommended additional chemotherapy was cisplatin at 75 mg meter squared on day 1 an d gemcitabine 1250 mg per meter squared on day one and day 8 of acute 21 day cycle for 6-8 c ycles. A second opinion was obtained by Dr. Richie Thayer of the [facility] who returned the recommendation for [...] the recommendations of Dr. Richie [facility]ayerof the [facility] [place] with gemcitabine at 1000 mg per meter squared on day one and day 8 wi th cisplatin 25 mg meter squared on day one and day 8 of a Q 21 day cycle beginning on July 26, 2014 complicated by grade 3 neutropenia and grade [address] scan of the chest, abdomen and pelvis that [facility] on September 16, 2014 demonstrated no radiographic [...] time. Plan: 1. Proceed with day 1 cis-nenana and gemcitabine as outlined above. 2. Neutropenic [...] has been changed since signin [facility] [place] amitriptyline (ELAVIL) 10 mg tablet (Taking) Take 10 mg by mouth nightly. Number of times this order has been changed since signin [facility] [place] dexamethasone (DECADRON) 4 mg tablet (Taking) Take one tablet PO as directed. Number of times this order has been changed since signin [facility] [place] docusate calcium (SURFAK) 240 mg capsule (Taking) Take 240 mg by mouth as needed. Number of times this order has been changed since signin [facility] [place] fish oil 1,000 mg capsule (Taking) Take 1,000 mg by mouth Daily. Number of times this order has been changed since signin [facility] [place] HYDROcodone-acetaminophen (VICODIN) 5-500 mg per tablet (Taking) Take 1 tablet by mouth e very 4 hours as needed. Number of times this order has been changed since signin [facility] [place] MULTIPLE VITAMIN PO (Taking) Take by mouth Daily. Number of times this order has been changed since signin [facility] [place] ondansetron (ZOFRAN ODT) 8 mg disintegrating tablet (Taking) Take 8 mg by mouth every 8 h ours as needed for Nausea. Number of times this order has been changed since signin [facility] [place] Probiotic Product (PROBIOTIC DAILY PO) (Taking) Take by mouth Daily. Number of times this order has been changed since signin [facility] [place] Allergy: Allergies Allergen Reactions Sulfa Antibiotics Rash [...] this chart may have been created with [employer] voice recognition software. Occasi onal wrong-word or [...] [address] | | | | | | [place] [address] | | | | | | [phone] | | | | | | | [...]
--- OUTSIDE RECORDS SUMMARY | ~2019-07-09 | XMS | Encounter Summary ---
Demographics + + + | Address | [address] | | | [place] [address] | + + + | Home Phone [...] Providers + +------+ + | Care Rn Imcu Name | Role | Phone | + [...] cancer | [address] | [address] [facility] | | | | | ([facility]) | [facility] | [facility] | | | | | Procedures | Rd | Rd [place], | | | | | REQUEST TO | [place], [place] | [place] | | | | | SURGERY | [address] | [address] | | | | | SENIOR SQL DEVELOPER | Phone: | Phone: | | | | | [place] [facility] | [phone] | [phone] | | | | | LIVER,PART | Fax: | Fax: | | | | | LOBECTOMY | [phone] | [phone] | | | | | [place] REMOVE | | | | | | | ABD LYMPH | | | | | | | NODES RAD | | | | | | | REGNL [place] | | | | | | | [...] | | | | CT CHEST, | [place], [place] | 10th Floor | | | | | ABDOMEN & | [address] | [place], [place] | | | | | PELVIS W IV | Phone: | [phone] | | | | | CONTRAST | [phone] | Phone: | | | | | [address], [address] | Fax: | [phone] | | | | | | [phone] | Fax: | | | | | | | [phone] | +--------+--------+ + + + + Reason [...] | | | | | cancer | [facility] | [address] | | | | | (HCC) | SURGICAL | [facility]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 | CLINIC [address] | [address] [place], | | | | | ca | [address] | [place] | | | | | | AVE | [address] | | | | | | [place], | Phone: | | | | | | [place] [address] | [phone] | | | | | | Phone: | Fax: | | | | | | [phone] | [phone] | | | | | | Fax: | | | | | | | [phone] | | +--------+--------+ + + + + Encounter Details +--------+---------+ + + + | Date | Type | Department | Care Team | Description | +--------+---------+ + + + | 04/12/ | Office | [facility] | Tai Stanton, | Gallbladder cancer | | 2012 | Visit | [place] [facility] [address] | [address] | (HCC) (Primary Dx) | | | | [address] | Surendra Carreon | | | | | Mailcode: [place] | [place], [place] | | | | | [facility] and | [address] | | | | | [facility] [address] | [phone] | | | | | [place], [place] | | | | | | [address] | | | | | | [phone] | | | +--------+---------+ + + + [...] - 04/12/2012 5:30 PM PSTPATIENT SURGERY INFORMATION [facility] General Surgery Office Toll-free: ext [phone] Surgery Date: April 28, 2012 Procedure: Segment [...] the surgery. Please see the list below, rey has a list of products that contain [...] from anyone by 7 pm please call [phone]. PARKING Parking for patients is available underneath the [facility] building. Parking is also available in the [facility] Parking structure located across from the emergency depart ment; patient parking available on level 1 and 3. Metered parking is available on the top evel. CHECKING IN FOR SURGERY Hospital Admission (in-patient): Admitting Desk 9th floor of [facility] TRANSPORTATION Day Surgery: If you have had [...] Please notify the general surgery office at [phone] as soon as possible should you nee [...] prior to your surgery. PRODUCTS CONTAINING ASPIRIN Winsome-Alturas, Anacin, Anexsia with Codeine, Andynos, Aspirin, Aspirin suppositories, Ascrip tin, Aspergum, Axotal, B-A-C, Baby Aspirin, Mahad, BC Powder, Bexophene, Buffaprin, Bufferin , Buffinol, Cama-Arthritis Strength, Congespirin, [place], Coricidin, Damason, Darvon, Dristan, Elen-Gesic, Digel, Dolprin #3 Tablets, Donatab, Doxaphene, Duragesic, Easprin, Ecotrin, Emag rin Forte, Emiprin, Emprazil, Equagesic, Equazine M, Excedrin, Fiogesic, Fiorgen PH, Fiorice t, Fiorinal, 4-Way Cold Tablet Gemnisyn, Indocin, Liquprin, Lortab ASA, Magnaprin, Marnal, Meprobamate, Midol, Momentum, N orgesic, Brewster, Orphengesic, Pabalate, P-A-C, Percodan, Presalin, Robaxasil, Roxiprin, Cruz eto, Salocol SK-65 Compound, Sine-Aid, Sine-Off,, [place], Supac, Talwin Compound, Trigesic, Tolectin , Traiminicin, Vanquish, ZORprin, Zomax PRODUCTS CONTAINING IBUPROFEN Advil, Aleve, Haltran, Medipren, Midol, Motrin, Naproxyn, Nuprin, Rufen OTHER PRODUCTS WHICH MAY PROMOTE BLEEDING Vitamin E, Gingko Biloba, Marine Fatty Acids, [place]-3 Fish Oil SupplementsElectronically si gned by Amy Dinh RN at 04/12/2012 5:31 PM PST documented in this encounter Progress Notes Tai Stnaton MD - 04/18/2012 11:09 AM PSTI saw and evaluated the patient. I agree with the findings and the plan of care as documented in the resident s note. Tai Stanton M.D. [facility] [employer] ([facility]) Professor and Vice-Culinary Arts Teacher of Surgery The [facility] Chair for Pancreatic Disease Research Pancreatic/ HepatoBiliary and Foregut Working Groups Mail Code [id number] [address] [place], [place]. [address] email: [email or web address] Mackenzie Troy MD - 04/12/2012 6:05 PM PST ID: Aura Upton CC: Referral for treatment of gall-bladder cancer found post lap analy HPI: Mrs Upton is a 51yo woman w/ h/o chronic back pain who is being referred by her georgina geon at [facility] for incidental finding gallbladder mass during cholecystectomy [...] had a la paroscopic Cholecystectomy performed at [facility] which confirmed 3 gallstones an [...] cancers Father DM, CAD SH: [place] , Denies tobacco use, very [...] Latest Range: 0.60-1.10 mg/dL 0.70 EGFR - [place] No range found >60 EGFR NON -[place] No range found >60 GLUCOSE, PLASMA (LAB) [...] Farr MD Chief Resident Department of Surgery [facility] documented in this en counter Plan of [...] | + + | Yamila Benitez - 04/13/2012 4:32 PM PST | + [...] | | | | signed / Kelsey Domarcelo | | | | | | 04/12/2012 [...] | | + +---------+ + + | [facility] DEPARTMENT OF | | [...] by | | | | | | [employer],[address] | | | | | | [address], [facility] [place] | | | | | | [address] | | | | | | [phone]. | | | | | | [...] + + | [facility] | [address] [facility] [place] [facility] | [place], [place] | | | [facility] | | [address] | | + + + + + [...] [place] | | | | | | Way, [facility] [place] [address] | | | | | | [phone] | | | | | | Lala [...] [facility] | [address] | [place], [place] | | | [facility] | | [address] | | + + + + + [...] | + + + + + | [facility] | [address] | [place] [address] | | | SERVICES, SAM | NEAL [...] | | | LABORATORY | | | [place] | | | SERVICES, | | | [...] [facility] | [address] | [place] [address] | | | SERVICES, [facility]ENTER FOR | | | | | HEALTH + HEALING | | | | + + + + + documented in this encounter Visit Diagnoses + + | Diagnosis | + + | Gallbladder cancer (HCC) - Primary Malignant neoplasm of gallbladder | + + documented in this encounter
--- OUTSIDE RECORDS SUMMARY | ~2019-07-09 | XMS | Encounter Summary ---
Demographics + + + | Address | [address] | | | [place] [address] | + + + | Home Phone [...] Phone | + + +---------+ + | Pocnho Oquendo | ECON | Unknown | | + + +---------+ + | Elsy Upton | ECON | Unknown | | + + +---------+ + Care Team Providers + +------+ + | Care Counselor Nurses' Association Name | Role | Phone | + [...] | Diagnoses | Non-[facility] | [facility] Senior Operations Manager Onc | | | | Gynecology | Complex | Epic Dept | [address] | | | | | Cystic Mass, | | [address] | | | | | elevated | | [place] | | | | | [address] per | | Alexis, 7th | | | | | appt notes | | floor | | | | | | | [place], [place] | | | | | | | [address] | | | | | | | Phone: | | | | | | | [phone] | | | | | | | Fax: | | | | | | | [phone] | +--------+--------+ + + + + Encounter Details +--------+---------+ + + + | Date | Type | Department | Care Team | Description | +--------+---------+ + + + | 07/23/ | Office | [facility] | Miguel Seymour, | 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 | [facility] [place] | [address] | (HCC) (Primary Dx); | | | | Pavilion [address] | [address] | Pelvic mass; | | | | [address] | [place], [place] | Post-operative pain | | | | Alex[place], 7th floor | [address] | | | | | [place], [place] | [phone] | | | | | [address] | | | | | | [phone] | | | +--------+---------+ + + + [...] might be different fr om the original. POLYGRAPH TECHNICIAN ONCOLOGY RETURN VISIT 07/23/2014 TREATMENT DIAGNOSIS: Stage [...] for pelvic recurrence (can be with regular POLYGRAPH TECHNICIAN) 3. Discharge from clinic unless other benzene worker oncology needs in future Patient seen and discussed with Dr. Henderson, who agrees with the assessment and plan. Lotus Maher MD SUPERVISOR PROCESS TESTING R4 I saw and evaluated the patient [...]
--- OUTSIDE RECORDS SUMMARY | ~2019-07-09 | XMS | Encounter Summary ---
Demographics + + + | Address | [address] | | | [place] [address] | + + + | Home Phone [...] | Author | [facility] | | | and [place]ardo[place] | + + + | Organization | [facility] | | | and [place] | + + + | Address | Unknown | + + + | Phone | Unavailable | + + + Support + + + + + | Name | Relationship | Address | Phone | + + + + + | Poncho Oquendo | ECON | [address] | | | | | [place] | | | | | [address] | | + + + + + | Marta Upton | ECON | [place] | | | | | [address] | | + + + + + Care Team Providers + +------+ + | Care Project Product Manager Name | Role | Phone | [...] | ONCOLOGY CLINIC [address] | [facility] | | | | | [address] [facility] | [place] [address] | | | | | [place] [address] | [phone] | | | | | [phone] | | | +--------+ + + + [...] | | | | | [facility] [place] [address] | | | | | | [phone] | | | | | | | | +--------+---------+ + + + documented as of this encounter Visit Diagnoses Not on filedocumented in this encounter"
--- OUTSIDE RECORDS SUMMARY | ~2019-07-09 | XMS | Encounter Summary ---
Demographics + + + | Address | [address] | | | [place] [address] | + + + | Home Phone [...] | [facility] | | | and [place] | + + + | Organization | [facility] | | | and [place] | + + + | Address | Unknown | + + + | Phone | Unavailable | + + + Support + + + + + | Name | Relationship | Address | Phone | + + + + + | Poncho Oquendo | ECON | [address] | | | | | [facility], [place] | | | | | [address] | | + + + + + | Marta Upton | ECON | [place], [place] | | | | | [address] | | + + + + + Care Team Providers + +------+ + | Care Inpatient Coder Name | Role | Phone | + +------+ + PCP | Unavailable | + +------+ + Encounter Details +--------+ + + + + | Date | Type | Department | Care Team | Description | +--------+ + + + + | 07/13/ | Hospital | [facility] | | | | 2012 - | Encounter | [facility] | | | | | | [facility] [address] | | | | 07/14/ | | [place] | | | | 2012 | | [address] | | | | | | [phone] | | | +--------+ + + + [...] [address] | | | | | | [place] [address] | | | | | | [phone] | | | | | | | | +--------+---------+ + + + documented as of this encounter Procedures + +--------+ + + + | Procedure Name | Priori | Date/Time | Associated Diagnosis | Comments | | | ty | | | | + +--------+ + + + | CBC WITH | Routin | 07/13/2012 | | Results for this | | DIFFERENTIAL | e | 9:08 AM | | procedure are in the | | | | PDT | | results section. | + +--------+ + + + | LACTATE | Routin | 07/13/2012 | | Results for this | | DEHYDROGENASE | e | 9:08 AM | | procedure are in the | | | | PDT | | results section. | + +--------+ + + + | COMPREHENSIVE | Routin | 07/13/2012 | | Results for this | | METABOLIC PANEL | e | 9:08 AM | | procedure are in the | | | | PDT | | results section. | + +--------+ + + + | CBC WITH | Routin | 07/06/2012 | | Results for this | | DIFFERENTIAL | e | 10:00 AM | | procedure are in the | | | | PDT | | results section. | + +--------+ + + + | LACTATE | Routin | 07/06/2012 | | Results for this | | DEHYDROGENASE | e | 10:00 AM | | procedure are in the | | | | PDT | | results section. | + +--------+ + + + | COMPREHENSIVE | Routin | 07/06/2012 | | Results for this | | METABOLIC PANEL | e | 10:00 AM | | procedure are in the | | | | PDT | | results section. | + +--------+ + + + | CBC WITH | Routin | 06/15/2012 | | Results for this | | DIFFERENTIAL | e | 11:49 AM | | procedure are in the | | | | PDT | | results section. | + +--------+ + + + | LACTATE | Routin | 06/15/2012 | | Results for this | | DEHYDROGENASE | e | 11:49 AM | | procedure are in the | | | | PDT | | results section. | + +--------+ + + + | COMPREHENSIVE | Routin | 06/15/2012 | | Results for this | | METABOLIC PANEL | e | 11:49 AM | | procedure are in the | | | | PDT | | results section. | + +--------+ + + + documented in this encounter Results CBC with Differential (07/13/2012 9:08 AM PDT) + + + + + [...] + + + + | WBC | 2.4 (LL)Comment: @VALUE | 4.0 - 11.0 K/uL | [facility] | | | | CONSISTENT WITH PREVIOUS | | [facility] | | | | RESULTS | | MEDICAL | | | | | | CENTER - | | | | | | LABORATORY | | + + + + + + | RBC | 4.52 | 3.70 - 5.20 | [facility] | | | | | M/uL | [facility] | | | | | | MEDICAL | | | | | | CENTER - | | | | | | LABORATORY | | + + + + + + | Hemoglobin | 13.1 | 11.5 - 16.0 | [facility] | | | | | gm/dL | [facility] | | | | | | MEDICAL | | | | | | CENTER - | | | | | | LABORATORY | | + + + + + + | Hematocrit | 40.3 | 34.0 - 47.0 % | [facility] [...] + + + + | MCH | 29.1 | 28.0 - 35.0 pg | [facility] [...] + + + + | RDW-CV | 13.6 | <15.0 % | [facility] | | | | | | [facility] | | | | | | MEDICAL | | | | | | CENTER - | | | | | | LABORATORY | | + + + + + + | Platelet | 427 | 140 - 440 K/uL | [facility] | | | Count | | | [facility] | | | | | | MEDICAL | | | | | | CENTER - | | | | | | LABORATORY | | + + + + + + | % | 17.7 (L) | 45 - 75 % | [facility] | | | Neutrophils | | | [facility] | | | | | | MEDICAL | | | | | | CENTER - | | | | | | LABORATORY | | + + + + + + | % | 70.8 (H) | 20 - 45 % | [facility] | | | Lymphocytes | | | [facility] | | | | | | MEDICAL | | | | | | CENTER - | | | | | | LABORATORY | | + + + + + + | % Monocytes | 9.6 | 4 - 12 % | [facility] | | | | | | [facility] | | | | | | MEDICAL | | | | | | CENTER - | | | | | | LABORATORY | | + + + + + + | % | 0.6 | 0 - 5 % | [facility] [...] + | Absolute | 0.4 (L) | 1.5 - 6.6 K/uL | [facility] | | | Neutrophils | | | [facility] | | | | | | MEDICAL | | | | | | CENTER - | | | | | | LABORATORY | | + + + + + + | Absolute | 1.7 | 0.6 - 3.2 K/uL | [facility] | | | Lymphocytes | | | [facility] | | | | | | MEDICAL | | | | | | CENTER - | | | | | | LABORATORY | | + + + + + + | Absolute | 0.2 | 0.0 - 1.0 K/uL | [facility] [...] + + | SUSPECTED | 1 (H)Comment: TEST | | [facility] | | | PROBLEM IS: | REPEATED, CRITICAL | | [facility] | | | | RESULT-PHONE RESULTS | | MEDICAL | | | | PERFORM SMEAR REVIEW | | CENTER - | | | | FOR DIFF % Variant | | LABORATORY | | | | LY | | | | + + + + + + + + | Specimen | + + | | + + + + + + + | Performing | Address | City/State/Zipcode | Phone Number | | Organization | | | | + + + + + | [facility] | [address] | [place], [place] | [phone] | | [facility] | | [address] | | | - LABORATORY | | | | + + + + + | [facility] | [address] | [place] | | | [facility] | | [address] [place] [address] | | | - LABORATORY | | | | + + + + + Comprehensive Metabolic Panel (07/13/2012 9:08 AM PDT) + + + + + [...] + + + + | Alkaline | 136 (H) | 40 - 110 IU/L | [facility] | | | Phosphatase | | | [facility] | | | | | | MEDICAL | | | | | | CENTER - | | | | | | LABORATORY | | + + + + + + | AST | 116 (H) | 10 - 42 IU/L | [facility] | | | | | | [facility] | | | | | | MEDICAL | | | | | | CENTER - | | | | | | LABORATORY | | + + + + + + | ALT | 148 (H) | 6 - 45 IU/L | [facility] | | | | | | [facility] | | | | | | MEDICAL | | | | | | CENTER - | | | | | | LABORATORY | | + + + + + + | Bilirubin | 0.6 | 0.2 - 1.0 mg/dL | [facility] [...] + + + + | Creatinine | 0.89 | 0.60 - 1.30 | [facility] | [...] + + + + | BUN/Creatin | 10.1 (L) | 12 - 20 | [facility] [...] + + + + | K | 4.2 | 3.5 - 5.1 mEq/l | [facility] [...] + + + | Anion Gap | 10.2 | 6.0 - 17.0 | [facility] | [...] [address] | [place] | [phone] | | [facility] | | [address] | | | - LABORATORY | | | | + + + + + | [facility] | [address] | [place] | | | [facility] | | [id number] | | | - LABORATORY | | | | + + + + + Lactate Dehydrogenase (07/13/2012 9:08 AM PDT) + +---------+ + + + | Component | Value | Ref Range | Performed | Pathologist | | | | | At | Signature | + +---------+ + + + | LDH TOTAL | 232 (H) | 91 - 180 IU/L | [facility] | | | | | | ST[facility] [...] + | [facility] | [address] | [place] | [phone] | | [facility] | | [address] | | | - LABORATORY | | | | + + + + + | [facility] | [address] | [place], [place] | | | [facility] | | [address] | | | - LABORATORY | | | | + + + + + CBC with Differential (07/06/2012 10:00 AM PDT) + + + + + [...] + + + + | RBC | 4.42 | 3.70 - 5.20 | [facility] | | | | | M/uL | [facility] | | | | | | MEDICAL | | | | | | CENTER - | | | | | | LABORATORY | | + + + + + + | Hemoglobin | 13.0 | 11.5 - 16.0 | [facility] | | | | | gm/dL | [facility] | | | | | | MEDICAL | | | | | | CENTER - | | | | | | LABORATORY | | + + + + + + | Hematocrit | 39.7 | 34.0 - 47.0 % | [facility] | | | | | | [facility] | | | | | | MEDICAL | | | | | | CENTER - | | | | | | LABORATORY | | + + + + + + | MCV | 89.9 | 83.0 - 101.0 fL | [facility] | | | | | | [facility] | | | | | | MEDICAL | | | | | | CENTER - | | | | | | LABORATORY | | + + + + + + | MCH | 29.5 [...] + + + + | Platelet | 588 (H) | 140 - 440 K/uL | [facility] | | | Count | | | [facility] | | | | | | MEDICAL | | | | | | CENTER - | | | | | | LABORATORY | | + + + + + + | % | 36.1 (L) | 45 - 75 % | [facility] | | | Neutrophils | | | [facility] | | | | | | MEDICAL | | | | | | CENTER - | | | | | | LABORATORY | | + + + + + + | % | 48.8 (H) | 20 - 45 % | [facility] | | | Lymphocytes | | | [facility] | | | | | | MEDICAL | | | | | | CENTER - | | | | | | LABORATORY | | + + + + + + | % Monocytes | 10.8 | 4 - 12 % | [facility] | | | | | | [facility] | | | | | | MEDICAL | | | | | | CENTER - | | | | | | LABORATORY | | + + + + + + | % | 3.7 | 0 - 5 % | [facility] | | | Eosinophils | | | [facility] | | | | | | MEDICAL | | | | | | CENTER - | | | | | | LABORATORY | | + + + + + + | % Basophils | 0.6 | 0 - 1 % | [facility] | | | | | | [facility] | | | | | | MEDICAL | | | | | | CENTER - | | | | | | LABORATORY | | + + + + + + | Absolute | 1.3 (L) | 1.5 - 6.6 K/uL | [...] [address] | [place] | [phone] | | [facility] | | [address] | | | - LABORATORY | | | | + + + + + | [facility] | [address] | [place] | | | [facility] | | [address] | | | - LABORATORY | | | | + + + + + Comprehensive Metabolic Panel (07/06/2012 10:00 AM PDT) + + + + + + | Component | Value | Ref Range | Performed | Pathologist | | | | | At | Signature | + + + + + + | Glucose | 100 | 70 - 109 mg/dL | [facility] | | | | | | [facility] | | | | | | MEDICAL | | | | | | CENTER - | | | | | | LABORATORY | | + + + + + + | Calcium | 8.9 | 8.3 - 10.5 | [facility] | | | | | mg/dL | [facility] | | | | | | MEDICAL | | | | | | CENTER - | | | | | | LABORATORY | | + + + + + + | Alkaline | 119 (H) | 40 - 110 IU/L | [facility] | | | Phosphatase | | | [facility] | | | | | | MEDICAL | | | | | | CENTER - | | | | | | LABORATORY | | + + + + + + | AST | 37 | 10 - 42 IU/L | [facility] | | | | | | [facility] | | | | | | MEDICAL | | | | | | CENTER - | | | | | | LABORATORY | | + + + + + + | ALT | 41 | 6 - 45 IU/L | [facility] | | | | | | [facility] | | | | | | MEDICAL | | | | | | CENTER - | | | | | | LABORATORY | | + + + + + + | Bilirubin | 0.5 | 0.2 - 1.0 mg/dL | [facility] [...] | >60Comment: For | >60 mL/min/A | [facility] | | | GFR | -Americans, | [...] + + + + | BUN/Creatin | 11.1 (L) | 12 - 20 | [facility] [...] + | [facility] | [address] | [place] | [phone] | | [facility] | | [address] | | | - LABORATORY | | | | + + + + + | [facility] | [address] | [place] | | | [facility] | | [address], [facility] | | | - LABORATORY | | | | + + + + + Lactate Dehydrogenase (07/06/2012 10:00 AM PDT) + +-------+ + + + | Component | Value | Ref Range | Performed | Pathologist | | | | | At | Signature | + +-------+ + + + | LDH TOTAL | 159 | 91 - 180 IU/L | [facility] [...] + | [facility] | [address] | [place], [place] | [phone] | | [facility] | | [address] | | | - LABORATORY | | | | + + + + + | [facility] | [address] | [place], [place] | | | [facility] | | [facility], [facility] | | | - LABORATORY | | | | + + + + + CBC with Differential (06/15/2012 11:49 AM PDT) + + + + + [...] + + + + | WBC | 5.6 | 4.0 - 11.0 K/uL | [facility] | | | | | | [facility] | | | | | | MEDICAL | | | | | | CENTER - | | | | | | LABORATORY | | + + + + + + | RBC | 4.99 | 3.70 - 5.20 | [facility] | | | | | M/uL | [facility] | | | | | | MEDICAL | | | | | | CENTER - | | | | | | LABORATORY | | + + + + + + | Hemoglobin | 14.0 | 11.5 - 16.0 | [facility] | | | | | gm/dL | [facility] | | | | | | MEDICAL | | | | | | CENTER - | | | | | | LABORATORY | | + + + + + + | Hematocrit | 44.1 | 34.0 - 47.0 % | [facility] | | | | | | [facility] | | | | | | MEDICAL | | | | | | CENTER - | | | | | | LABORATORY | | + + + + + + | MCV | 88.4 | 83.0 - 101.0 fL | [facility] | | | | | | [facility] | | | | | | MEDICAL | | | | | | CENTER - | | | | | | LABORATORY | | + + + + + + | MCH | 28.1 | 28.0 - 35.0 pg | [facility] | | | | | | [facility] | | | | | | MEDICAL | | | | | | CENTER - | | | | | | LABORATORY | | + + + + + + | MCHC | 31.8 (L) | 32.0 - 36.0 | [facility] | | | | | g/dL | [facility] | | | | | | MEDICAL | | | | | | CENTER - | | | | | | LABORATORY | | + + + + + + | RDW-CV | 13.0 | <15.0 % | [facility] | | | | | | [facility] | | | | | | MEDICAL | | | | | | CENTER - | | | | | | LABORATORY | | + + + + + + | Platelet | 240 | 140 - 440 K/uL | [facility] | | | Count | | | [facility] | | | | | | MEDICAL | | | | | | CENTER - | | | | | | LABORATORY | | + + + + + + | % | 49.3 | 45 - 75 % | [facility] | | | Neutrophils | | | [facility] | | | | | | MEDICAL | | | | | | CENTER - | | | | | | LABORATORY | | + + + + + + | % | 37.3 | 20 - 45 % | [facility] | | | Lymphocytes | | | [facility] | | | | | | MEDICAL | | | | | | CENTER - | | | | | | LABORATORY | | + + + + + + | % Monocytes | 8.3 | 4 - 12 % | [facility] | | | | | | [facility] | | | | | | MEDICAL | | | | | | CENTER - | | | | | | LABORATORY | | + + + + + + | % | 3.8 | 0 - 5 % | [facility] [...] + + + + | Absolute | 2.8 | 1.5 - 6.6 K/uL | [facility] | | | Neutrophils | | | [facility] | | | | | | MEDICAL | | | | | | CENTER - | | | | | | LABORATORY | | + + + + + + | Absolute | 2.1 | 0.6 - 3.2 K/uL | [facility] [...] 0.1 | 0.0 - 0.1 K/uL | [facility] [...] [address] | [place] | [phone] | | [facility] | | [address] | | | - LABORATORY | | | | + + + + + | [facility] | [address] | [place] | | | [facility] | | [address], [facility] | | | - LABORATORY | | | | + + + + + Comprehensive Metabolic Panel (06/15/2012 11:49 AM PDT) + + + + + + | Component | Value | Ref Range | Performed | Pathologist | | | | | At | Signature | + + + + + + | Glucose | 102 | 70 - 109 mg/dL | [facility] [...] + + + + | Alkaline | 133 (H) | 40 - 110 IU/L | [...] + + + + | ALT | 32 | 6 - 45 IU/L | [facility] | | | | | | [facility] | | | | | | MEDICAL | | | | | | CENTER - | | | | | | LABORATORY | | + + + + + + | Bilirubin | 0.6 | 0.2 - 1.0 mg/dL | [facility] [...] + + + + | BUN | 12 | 7 - 18 mg/dL | [facility] [...] | >60Comment: For | >60 mL/min/A | [facility] | | | GFR | -Americans, | | [facility] | | | | please multiply [...] + + + + | BUN/Creatin | 16.7 | 12 - 20 | [facility] | [...] + + + | Anion Gap | 13.3 | 6.0 - 17.0 | [facility] | [...] + | [facility] | [address] | [place] | [phone] | | [facility] | | [address] | | | - LABORATORY | | | | + + + + + | [facility] | [address] | [place], [place] | | | [facility] | | [address], [facility] | | | - LABORATORY | | | | + + + + + Lactate Dehydrogenase (06/15/2012 11:49 AM PDT) + +-------+ + + + | Component | Value | Ref Range | Performed | Pathologist | | | | | At | Signature | + +-------+ + + + | LDH TOTAL | 122 | 91 - 180 IU/L | [facility] [...] + | [facility] | [address] | [place] | [phone] | | [facility] | | [address] | | | - LABORATORY | | | | + + + + + | [facility] | [address] | [place] | | | [facility] | | [address], [facility] | | | - LABORATORY | | | | + + + + + documented in this encounter Visit Diagnoses Not on filedocumented in this encounter"
--- OUTSIDE RECORDS SUMMARY | ~2019-07-09 | XMS | Encounter Summary ---
Demographics + + + | Address | [address] | | | [place] [address] | + + + | Home Phone [...] | [facility] | | | and [place] | + + + | Organization | [facility] | | | and [place] | + + + | Address | Unknown | + + + | Phone | Unavailable | + + + Support + + + + + | Name | Relationship | Address | Phone | + + + + + | Poncho Oquendo | ECON | [address] | | | | | [facility] [place] | | | | | [address] | | + + + + + | Marta Upton | ECON | [place], [place] | | | | | [address] | | + + + + + Care Team Providers + +------+ + | Care Fish House Worker Name | Role | Phone | + +------+ + | No, Physician | PCP | Unavailable | + +------+ + Encounter Details +--------+ + + + + | Date | Type | Department | Care Team | Description | +--------+ + + + + | 04/26/ | Anesthesia | [facility] [place] | | | 2019 | Event | REGIONAL SURGERY | [address] | | | | | CENTER INTRA OP | [place] | | | | | [address] | [place] [address] | | | | | [place], [place] | [phone] | | | | | [address] | | | | | | [phone] | | | +--------+ + + + [...] [address] | | eral | Forearm; uvki-dpo-czikuz catheter | Jamila [place], | Cindy Casarez [...] [address] | | | | | | [place] [address] | | | | | | [phone] | | | | | | | [...]
--- OUTSIDE RECORDS SUMMARY | ~2019-07-09 | XMS | Encounter Summary ---
Demographics + + + | Address | [address] | | | [place] [address] | + + + | Home Phone [...] | [facility] | | | and [place] | + + + | Organization | [facility] | | | and [place] | + + + | Address | Unknown | + + + | Phone | Unavailable | + + + Support + + + + + | Name | Relationship | Address | Phone | + + + + + | Poncho Oquendo | ECON | [address] | | | | | [facility] [place] | | | | | [address] | | + + + + + | Marta Upton | ECON | [place], [place] | | | | | [address] | | + + + + + Care Team Providers + +------+ + | Care Box Toe Flanger Stitchdowns Name | Role | Phone | + +------+ + PCP | Unavailable | + +------+ + Encounter Details +--------+ + + + + | Date | Type | Department | Care Team | Description | +--------+ + + + + | 05/05/ | Hospital | [facility] | Hakan Cherry | | | 2011 | Encounter | MED CTR XRAY [address] | | | | | [place] | [address] [place], [place] | | | | | [place] [address] | [address] | | | | | [phone] | | | +--------+ + + + [...] | Visit | | DO [address] | | | | | | [place] [address] | | | | | | [phone] | | | | | | | [...] Performed At | + + + | [facility] | [facility] | | [address] | [facility] | | PROCEDURE NOTE LUMBAR FACET | [...] Transcribed Date/Time: 05/06/2011 17:17 | | | Hvac Designer: <Electronically Signed by Hakan Field | | | MD Dilip> 05/14/11 1336 | | + + + + + | Procedure Note | + + | Edmundo, Rad Conversion - 03/23/2013 4:[address] [facility] | | Diagnostic Imaging Department [address] [place] [address] | | PROCEDURE NOTE LUMBAR FACET INJECTION, [...] 17:08 | |Transcribed Date/Time: 05/06/2011 17:17 | |Hvac Designer: | |<Electronically Signed by Hakan Cherry MD> [...]
--- OUTSIDE RECORDS SUMMARY | ~2019-07-09 | XMS | Encounter Summary ---
Demographics + + + | Address | [address] | | | [place] [address] | + + + | Home Phone [...] Team Providers + +------+ + | Care Talent Engineer Name | Role | Phone | + +------+ + | Tomasa Wagner | PCP | | + +------+ + Encounter Details +--------+ + + + + | Date | Type | Department | Care Team | Description | +--------+ + + + + | 05/24/ | MyChart | [facility] | Miguel Seymour, | RE: Share Info with | | 2014 | Encounter | [facility] | [address] | Dr. Tai Stanton | | | | [address] [address] | [facility] | | | | | [address] | [place], [place] | | | | | Alexis, [facility] floor | [address] | | | | | [place], [place] | [phone] | | | | | [address] | | | | | | [phone] | | | +--------+ + + + [...]
--- OUTSIDE RECORDS SUMMARY | ~2019-07-09 | XMS | Encounter Summary ---
Demographics + + + | Address | [address] | | | [place] [address] | + + + | Home Phone [...] Team Providers + +------+ + | Care Application Software Engineer Name | Role | Phone | [...] Facial Plastics & | [address] | Septum (Primary Dx) | | | | Reconstructive | [place], | | | | | Services at [facility] | [place] [address] | | | | | [address] | [phone] | | | | | Mailcode: CH5E | | | | | | [facility] | | | | | | and Healing, | | | | | | Building [address]th | | | | | | Floor [place], [place] | | | | | | [address] | | | | | | [phone] | | | +--------+---------+ + + + [...] Surgery Dept. of Otolaryngology/Head and Neck Surgery [facility] tel fax email [email or web address] documented in this encounte r Plan of Treatment Not on filedocumented as of this encounter Visit Diagnoses + + | Diagnosis | + + | Perforation of nasal septum - Primary Other diseases of nasal cavity and sinuses | + + documented in this encounter"
--- OUTSIDE RECORDS SUMMARY | ~2019-07-09 | XMS | Encounter Summary ---
Demographics + + + | Address | [address] | | | [place] [address] | + + + | Home Phone [...] Team Providers + +------+ + | Care Appliance Technician Name | Role | Phone | + +------+ + | Tomasa Wagner | PCP | | + +------+ + Encounter Details +--------+ + + + + | Date | Type | Department | Care Team | Description | +--------+ + + + + | 06/28/ | Telephone | [facility] | Tai Stanton, | | | 2012 | | [facility] [address] | [address] | | | | | [address] | Surendra Carreon | | | | | Mailcode: Center | [place], [place] | | | | | [facility] and | [address] | | | | | Healing, [address] | [phone] | | | | | [place], [place] | | | | | | [address] | | | | | | [phone] | | | +--------+ + + + [...]
--- OUTSIDE RECORDS SUMMARY | ~2019-07-09 | XMS | Encounter Summary ---
Demographics + + + | Address | [address] | | | [place] [address] | + + + | Home Phone [...] Author | [facility] | | | and [place]ardo[place] | + + + | Organization | [facility] | | | and [place]ardo[place] | + + + | Address | Unknown | + + + | Phone | Unavailable | + + + Support + + + + + | Name | Relationship | Address | Phone | + + + + + | Poncho Oquendo | ECON | [address] | | | | | [place] | | | | | [address] | | + + + + + | Marta Upton | ECON | [place] | | | | | [address] | | + + + + + Care Team Providers + +------+ + | Care Wood Window And Door Craftsman Name | Role | Phone | + [...] | | | [facility] | [facility] | | | | | [address] [facility] | [place] [address] | | | | | [place] [address] | [phone] | | | | | [phone] | | | +--------+ + + + [...] | [facility] [address] | | | | | | [phone] | | | | | | | | +--------+---------+ + + + documented as of this encounter Visit Diagnoses Not on filedocumented in this encounter"
--- OUTSIDE RECORDS SUMMARY | ~2019-07-09 | XMS | Encounter Summary ---
Demographics + + + | Address | [address] | | | [place] [address] | + + + | Home Phone [...] Team Providers + +------+ + | Care Hob Machine Operator Name | Role | Phone [...] | 2015 | Encounter | [facility] | [address] | Appointment | | | | [facility] [address] | Surendra Velma | | | | | [address] | [place], [place] | | | | | [facility], [address] [place] [address] | [address] | | | | | [place], [place] | [phone] | | | | | [address] | | | | | | [phone] | | | +--------+ + + + [...]
--- OUTSIDE RECORDS SUMMARY | ~2019-07-09 | XMS | Encounter Summary ---
Demographics + + + | Address | [address] | | | [place] [address] | + + + | Home Phone [...] Providers + +------+ + | Care Machine Setter Supervisor Name | Role | Phone | + +------+ + | Tomasa Wagner | PCP | | + +------+ + Encounter Details +--------+ + + + + | Date | Type | Department | Care Team | Description | +--------+ + + + + | 07/12/ | Abstract | [facility] | Tai Stanton, | | | 2013 | | [place] [facility] [address] | [address] | | | | | [address] | Surendra Carreon | | | | | Mailcode: Center | [place], [place] | | | | | [facility] | [address] | | | | | Healing, Building [address] | [phone] | | | | | [place], [place] | | | | | | [address] | | | | | | [phone] | | | +--------+ + + + [...]
--- OUTSIDE RECORDS SUMMARY | ~2019-07-09 | XMS | Encounter Summary ---
Demographics + + + | Address | [address] | | | [place] [address] | + + + | Home Phone [...] Team Providers + +------+ + | Care Xerox Machine Operator Name | Role | Phone [...] 2012 | | Oncology at [facility] | [address] | | | | | [address] [facility] | [place] [address] | | | | | Mailcode: CH7M | [place] [address] | | | | | [facility] | [phone] | | | | | and Healing, | | | | | | [place] [address] | | | | | | [place], [place] | | | | | | [address] | | | | | | [phone] | | | +--------+ + + + [...]
--- OUTSIDE RECORDS SUMMARY | ~2019-07-09 | XMS | Encounter Summary ---
Demographics + + + | Address | [address] | | | [place] [address] | + + + | Home Phone [...] | Author | [facility] | | | and [place] | + + + | Organization | [facility] | | | and [place] | + + + | Address | Unknown | + + + | Phone | Unavailable | + + + Support + + + + + | Name | Relationship | Address | Phone | + + + + + | Poncho Oquendo | ECON | [address] | | | | | [place] | | | | | [address] | | + + + + + | Marta Upton | ECON | [place] | | | | | [address] | | + + + + + Care Team Providers + +------+ + | Care Health Outreach Worker Name | Role | Phone | [...] (Primary Dx) | | | | [address] | [place] [address] | | | | | [place] [address] | [phone] | | | | | [phone] | | | +--------+ + + + [...] [address] | | | | | | [place] [address] | | | | | | [phone] | | | | | | | | +--------+---------+ + + + documented as of this encounter Visit Diagnoses + + | Diagnosis | + + | 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
--- OUTSIDE RECORDS SUMMARY | ~2019-07-09 | XMS | Encounter Summary ---
Demographics + + + | Address | [address] | | | [place] [address] | + + + | Home Phone | | + + + | Preferred Language | Unknown | + + + | Marital Status | | + + + | Adventism Affiliation | Unknown | + + + | Race | Unknown | + + + | Ethnic Group | Unknown | + + + Author + + + | Author | [facility] | | | and [place] | + + + | Organization | [facility] | | | and [place] | + + + | Address | Unknown | + + + | Phone | Unavailable | + + + Support + + + + + | Name | Relationship | Address | Phone | + + + + + | Poncho Oquendo | ECON | [address] | | | | | [place] | | | | | [address] | | + + + + + | Marta Upton | ECON | [place] | | | | | [address] | | + + + + + Care Team Providers + +------+ + | Care Balance Bridge Inspector Name | Role | Phone | [...] 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, | [address] [place]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 | MD [address] | [place], | | | | | (HCC) | [address] | [place] [address] | | | | | Procedures | [place], | Phone: | | | | | [place] | [place] [address] | [phone] | | | | | 10 MG | Phone: | Fax: | | | | | INJECTION | [phone] | [phone] | | | | | SC | Fax: | | | | | | GEMCITABINE | [phone] | | | | | | HCL | | | | | | | INJECTION, | | | | | | | 200 MG SC | | | | | | | DIPHENHYDRAM | | | | | | | INE HCL | | | | | | | INJECTIO, 50 | | | | | | | MG SC | | | | | | | METHYLPREDNI | | | | | | | SOLONE | | | | | | | INJECTION, | | | | | | | 125 MG SC | | | | | | | FILGASTIM | | | | | | | (ZARXIO) 300 | | | | | | | MCG/0.5ML | | | | | | | SOSY, PER 1 | | | | | | | MCG SC | | | | | | | ONDANSETRON | | | | | | | HCL | | | | | | | INJECTION, 1 | | | | | | | MG SC | | | | | | | DEXAMETHASON | | | | | | | E SODIUM | | | | | | | PHOS, 1 MG | | | | | | | SC | | | | | | | FOSAPREPITAN | | | | | | | T INJECTION, | | | | | | | 1 MG SC | | | | | | | NORMAL | | | | | | | SALINE | | | | | | | SOLUTION | | | | | | | INFUS, 500 | | | | | | | ML SC | | | | | | | NORMAL | | | | | | | SALINE | | | | | | | SOLUTION | | | | | | | INFUS, 250 | | | | | | | ML SC | | | | | | | STERILE | | | | | | | WATER/SALINE | | | | | | | , 10 ML SC | | | | | | | CHEMOTHER, | | | | | | | IV PUSH,EA | | | | | | | ADD DRUG SC | | | | | | | CHEMOTHER, | | | | | | | IV INFUSION, | | | | | | | 1 HR SC | | | | | | | CHEMOTHER, | | | | | | | IV INFUSION, | | | | | | | EA HR SC | | | | | | | CHEMOTHER,NO | | | | | | | N-HORMONE | | | | | | | ANTI-NEOPL, | | | | | | | SUB-Q/IM SC | | | | | | | [...] + + | 08/06/ | Hospital | [facility] | Vladimir Robles, | Gallbladder cancer, | | 2017 | Encounter | [facility] | MD [address] | carcinoma (HCC) | | | | INFUSION [address] [place], | | | | | [place], | [place] [address] | | | | | [place] [address] | [phone] | | | | | [phone] | | | +--------+ + + + [...] [address] | | | | | | [place] [address] | | | | | | [phone] | | | | | | | | +--------+---------+ + + + documented as of this encounter Procedures + +--------+ + + + | Procedure Name | Priori | Date/Time | Associated Diagnosis | Comments | | | ty | | | | + +--------+ + + + | CA 19-9, QUANT | STAT | 08/06/2016 | Gallbladder | Results for this | | | | 8:49 AM | cancer, carcinoma | procedure are in the | | | | PDT | (HCC) | results section. | + +--------+ + + + | DIFFERENTIAL, MANUAL | Routin | 08/06/2016 | Gallbladder | Results for this | | | e | 8:49 AM | cancer, carcinoma | procedure are in the | | | | PDT | ([facility]) | results section. | + +--------+ + + + | CBC WITH | STAT | 08/06/2016 | Gallbladder | Results for this | | DIFFERENTIAL | | 8:49 AM | cancer, carcinoma | procedure are in the | | | | PDT | (HCC) | results section. | + +--------+ + + + | LACTATE | STAT | 08/06/2016 | Gallbladder | Results for this | | DEHYDROGENASE | | 8:49 AM | cancer, carcinoma | procedure are in the | | | | PDT | (HCC) | results section. | + +--------+ + + + | CEA | STAT | 08/06/2016 | Gallbladder | Results for this | | | | 8:49 AM | cancer, carcinoma | procedure are in the | | | | PDT | (HCC) | results section. | + +--------+ + + + | COMPREHENSIVE | STAT | 08/06/2016 | Gallbladder | Results for this | | METABOLIC PANEL | | 8:49 AM | cancer, carcinoma | procedure are in the | | | | PDT | (HCC) | results section. | + +--------+ + + + documented in this encounter Results Differential, Manual (08/06/2016 8:49 AM PDT) + + + + + + | Component | Value | Ref Range | Performed | Pathologist | | | | | At | Signature | + + + + + + | % Segmented | 50.0 | 50.0 - 70.0 % | [facility] | | | | | | [facility] | | | Neutrophils | | | MEDICAL | | | | | | CENTER - | | | | | | LABORATORY | | + + + + + + | % | 33.0 | 20.0 - 40.0 % | [facility] | | | Lymphocytes | | | [facility] | | | | | | MEDICAL | | | | | | CENTER - | | | | | | LABORATORY | | + + + + + + | % Monocytes | 12.0 (H) | 1.0 - 6.0 % | [facility] | | | | | | [facility] | | | | | | MEDICAL | | | | | | CENTER - | | | | | | LABORATORY | | + + + + + + | % Bands | 5.0 | 0.0 - 5.0 % | [facility] | | | | | | [facility] | | | | | | MEDICAL | | | | | | CENTER - | | | | | | LABORATORY | | + + + + + + | Absolute | 3.05 | 1.80 - 7.70 | [facility] | | | Segmented | | K/uL | [facility] | | | Neutrophils | | | MEDICAL | | | | | | CENTER - | | | | | | LABORATORY | | + + + + + + | Absolute | 2.01 | 1.00 - 3.40 | [facility] | | | Lymphocytes | | K/uL | [facility] | | | | | | MEDICAL | | | | | | CENTER - | | | | | | LABORATORY | | + + + + + + | Absolute | 0.73 | 0.00 - 0.80 | [facility] | | | Monocytes | | K/uL | [facility] | | | | | | MEDICAL | | | | | | CENTER - | | | | | | LABORATORY | | + + + + + + | Absolute | 0.31 | 0.00 - 1.50 | [facility] | | | Bands | | K/uL | [facility] | | | | | | MEDICAL | | | | | | CENTER - | | | | | | LABORATORY | | + + + + + + | Total | 100 | | [facility] | | | Counted | | | [facility] | | [...] + + + + | RBC | Moderate (A) | (none) | [facility] | | | Macrocytes | | | [facility] | | | | | | MEDICAL | | | | | | CENTER - | | | | | | LABORATORY | | + + + + + + | Anisocytosi | Slight (A) | (none) | [facility] [...] + | [facility] | [address] | [place] | [phone] | | [facility] | | [address] | | | - LABORATORY | | | | + + + + + CA 19-9, Quant (08/06/2016 8:49 AM PDT) + + + + + + | Component | Value | Ref Range | Performed | Pathologist | | | | | At | Signature | + + + + + + | CA 19-9 | 18Comment: [facility] | 0 - 35 U/mL [...] [place] | | | | | | [address] | | | | + + + + + + + + | Specimen | + + | Blood | + + + + + + + | Performing | Address | City/State/Zipcode | Phone Number | | Organization | | | | + + + + + | [facility] | [address] | [place] [address] | [phone] | + + + + + Lactate Dehydrogenase (08/06/2016 8:49 AM PDT) + +---------+ + + + [...] [address] | [place] | [phone] | | [facility] | | [address] | | | - LABORATORY | | | | + + + + + Comprehensive Metabolic Panel (08/06/2016 8:49 AM PDT) + + + + + [...] K | 4.3 | 3.5 - 5.1 | [facility] | [...] + + + | Anion Gap | 8 | 3 - 16 mmol/L | [facility] | | | | | | [facility] | | | | | | MEDICAL | | | | | | CENTER - | | | | | | LABORATORY | | + + + + + + | Glucose | 137 (H) | 70 - 109 mg/dL | [facility] | | | | | | [facility] | | | | | | MEDICAL | | | | | | CENTER - | | | | | | LABORATORY | | + + + + + + | BUN | 12 | 7 - 18 mg/dL | [facility] | | | | | | [facility] | | | | | | MEDICAL | | | | | | CENTER - | | | | | | LABORATORY | | + + + + + + | Creatinine | 0.95 | 0.60 - 1.30 | [facility] | | | | | mg/dL | [facility] | | | | | | MEDICAL | | | | | | CENTER - | | | | | | LABORATORY | | + + + + + + | eGFR if not | >60Comment: GLOMERULAR | >=60 | [facility] | | | | FILTRATION | mL/min/1.73m2 | [facility] | | | [place] | RATE,ESTIMATED | | MEDICAL | | | | mL/min/1.51z9Takn than | | CENTER - | | [...] + + + + | Bilirubin | 0.5Comment: This is an | 0.1 - 1.5 [...] | | Protein | | | [facility] | | | | | | MEDICAL | | | | | | CENTER - | | | | | | LABORATORY | | + + + + + + | AST | 27Comment: This is an | 10 - 42 [...] + + + + | Alkaline | 139 (H)Comment: This is | 40 - 110 [...] + + + + | Globulin | 2.5 | 2.1 - 3.8 g/dL | [facility] | | | | | | [facility] | | | | | | MEDICAL | | | | | | CENTER - | | | | | | LABORATORY | | + + + + + + | Albumin/Sakina | 1.5 | 0.8 - 2.0 | [facility] | | | bulin Ratio | | | [facility] | | | | | | MEDICAL | | | | | | CENTER - | | | | | | LABORATORY | | + + + + + + | BUN/Creatin | 12.6 | | [facility] | | | ine [...] [address] | [place] | [phone] | | [facility] | | [address] | | | - LABORATORY | | | | + + + + + CBC with Differential (08/06/2016 8:49 AM PDT) + + + + + + | Component | Value | Ref Range | Performed | Pathologist | | | | | At | Signature | + + + + + + | WBC | 6.1 | 4.0 - 11.0 K/uL | [facility] | | | | | | [facility] | | | | | | MEDICAL | | | | | | CENTER - | | | | | | LABORATORY | | + + + + + + | RBC | 2.69 (L) | 3.70 - 5.20 | [facility] [...] + + + + | Hematocrit | 28.0 (L) | 34.0 - 47.0 % | [facility] | | | | | | [facility] | | | | | | MEDICAL | | | | | | CENTER - | | | | | | LABORATORY | | + + + + + + | MCV | 104.2 (H) | 83.0 - 101.0 fL | [facility] | | | | | | [facility] | | | | | | MEDICAL | | | | | | CENTER - | | | | | | LABORATORY | | + + + + + + | MCH | 35.2 (H) | 28.0 - 35.0 pg | [...] + + + + | RDW-CV | 20.9 (H) | <15.0 % | [facility] | | | | | | [facility] | | | | | | MEDICAL | | | | | | CENTER - | | | | | | LABORATORY | | + + + + + + | Platelet | 106 (L) | 140 - 440 K/uL | [...] + + + + | % | 54.9 | 45.0 - 82.0 % | [facility] | | | Neutrophils | | | [facility] | | | | | | MEDICAL | | | | | | CENTER - | | | | | | LABORATORY | | + + + + + + | % | 30.1 | 20.0 - 45.0 % | [facility] | | | Lymphocytes | | | [facility] | | | | | | MEDICAL | | | | | | CENTER - | | | | | | LABORATORY | | + + + + + + | % Monocytes | 13.7 (H) | 4.0 - 12.0 % | [facility] | | | | | | [facility] | | | | | | MEDICAL | | | | | | CENTER - | | | | | | LABORATORY | | + + + + + + | % | 0.4 | 0.0 - 5.0 % | [facility] [...] + + + + | Absolute | 3.40 [...] | 0.10 | 0.00 - 0.10 | [facility] | [...] [address] | [place] | [phone] | | [facility] | | [address] | | | - LABORATORY | | | | + + + + + CEA (08/06/2016 8:49 AM PDT) + +-------+ + + + | Component | Value | Ref Range | Performed | Pathologist | | | | | At | Signature | + +-------+ + + + | CEA | 1.0 | 0.0 - 10.0 | [facility] | [...] [address] | [place] | [phone] | | [facility] | | [address] | | | - LABORATORY | | [...] 31 mg in | New Bag | 08/07/19 | 31 mg | 531 | | | sodium chloride 0.9% 500 mL chemo | | 17 10:45 | | mL/hr | | | infusion 31 mg (rounded from | | AM PDT | | | | | 31.2 mg = 16 mg/m2 | | | | | | | 1.95 m2 Treatment plan recorded | | | | | | | BSA), Intravenous, Administer | | | | | | | over 1 Hours, ONCE, 08/06/16 | | | | | | | at 1030, For 1 dose, | | | | | | | Chemotherapy: This is a high risk | | | | | | | medication. Vesicant. Protect | | | | | | | from light., | | | | | | + +---------+ +-------+-------+------+ +---+---+ | | | +---+---+ + +-------+ +-------+---+---+ | diphenhydrAMINE (BENADRYL) | Given | 08/07/19 | 25 mg | | | | injection 25 mg 25 mg, | | 17 9:42 | | | | | Intravenous, ONCE, 08/06/16 at | | AM PDT | | | | | 1000, For 1 dose | | | | | | + +-------+ +-------+---+---+ +---+---+ | | | +---+---+ + +---------+ +--------+-------+---+ | fosaprepitant (EMEND) 150 mg in | New Bag | 08/07/19 | 150 mg | 500 | | | sodium chloride 0.9% 250 mL IVPB | | 17 10:14 | | mL/hr | | | 150 mg, Intravenous, Administer | | AM PDT | | | | | over 30 Minutes, ONCE, Fri | | | | | | | 08/06/16 at 1000, For 1 dose, Do | | | | | | | not shake bag., | | | | | | + +---------+ +--------+-------+---+ +---+---+ | | | +---+---+ + +---------+ + +-------+---+ | gemcitabine (GEMZAR) 1,248 mg | New Bag | 08/07/19 | 1,248 mg | 500 | | | in sodium chloride 0.9% 217.16 mL | | 17 11:50 | | mL/hr | | | chemo infusion 1,248 mg (640 | | AM PDT | | | | | mg/m2 | | | | | | | 1.95 m2 Treatment plan recorded | | | | | | | BSA), Intravenous, Administer | | | | | | | over 30 Minutes, ONCE, Fri | | | | | | | 08/06/16 at 1130, For 1 dose, | | | | | | | Chemotherapy: This is a high risk | | | | | | | medication. Do not refrigerate., | | | | | | | | | | | | | + +---------+ + +-------+---+ +---+---+ | | | +---+---+ + +-------+ +-------+---+---+ | heparin 100 units/mL flush | Given | 08/07/19 | 500 | | | | injection 500 Units 500 Units (5 | | 17 12:29 | Units | | | | mL), Intracatheter, PRN, Line | | PM PDT | | | | | Care, Starting 08/06/16 at | | | | | | | 0934, , | | | | | | + +-------+ +-------+---+---+ +---+---+ | | | +---+---+ + +---------+ +---+-------+---+ | ondansetron (ZOFRAN) 8 mg, | New Bag | 08/07/19 | | 204 | | | dexamethasone (DECADRON) 4 mg in | | 17 9:56 | | mL/hr | | | sodium chloride 0.9% 50 mL IVPB | | AM PDT | | | | | Intravenous, Administer over 16 | | | | | | | Minutes, ONCE, 08/06/16 at | | | | | | | 1000, For 1 dose, Administer | | | | | | | prior to chemotherapy., | | | | | | + +---------+ +---+-------+---+ +---+---+ | | | +---+---+ documented in this encounter"
--- OUTSIDE RECORDS SUMMARY | ~2019-07-09 | XMS | Encounter Summary ---
Demographics + + + | Address | [address] | | | [place] [address] | + + + | Home Phone [...] | [facility] | | | and [place] | + + + | Organization | [facility] | | | and [place] | + + + | Address | Unknown | + + + | Phone | Unavailable | + + + Support + + + + + | Name | Relationship | Address | Phone | + + + + + | Poncho Oquendo | ECON | [address] | | | | | [place] | | | | | [address] | | + + + + + | Marta Upton | ECON | [place] | | | | | [address] | | + + + + + Care Team Providers + +------+ + | Care Diversified Crops Ii Farmworker Name | Role | Phone | + [...] | | Personal | Re[place], | [address] [place] | | | | | 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, | [place], | | | | | 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 [address] | [place] [address] | | | | | neoplasm of | [address] | Phone: | | | | | other site | [place], | [phone] | | | | | in | [place] [address] | Fax: | | | | | gastrointest | Phone: | [phone] | | | | | inal tract | [phone] | | | | | | Procedures | Fax: | | | | | | CT Abdomen | [phone] | | | | | | Pelvis [...] | | | | (HCC) | AR[facility] MD | [facility] | | | | | Procedures | [address] | [place] | | | | | [place] OFFICE | Phone: | [phone] Phone: | | | | | OUTPATIENT | [phone] | [phone] | | | | | VISIT 25 | Fax: | Fax: | | | | | MINUTES | [phone] | [phone] | +--------+--------+ + + + + Encounter Details +--------+ + + + + | Date | Type | Department | Care Team | Description | +--------+ + + + + | 03/18/ | Hospital | [facility] | Reinaldo, | Personal history of | | 2015 | Encounter | [facility] | Epifanio Soler MD [address] | malignant neoplasm | | | | [facility] [address] [place] | of other site in | | | | [address] | [place] [address] | gastrointestinal | | | | [place] [address] | [phone] | tract (Primary Dx); | | | | [phone] | | Obesity; Liver | | | [...] Aura Upton is a 53-year-old woman from [place], [place] who h as 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 Tai Stanton of the [facility] April 28, 2012. ACTIVE DIAGNOSES: 1. Presentation with biliary colic in March of 2012 status post cholecystectomy and live r biopsy by Dr. Brandon Garcia March 29, 2012, pathological specimen [id number], analyzed by Dr. Bowers of [facility] and was notable for a poorly-differentiated adenoca rcinoma of the gallbladder. Liver biopsy demonstrated mild portal inflammation. 2. On April 28, 2012, she successfully underwent an R0 resection by Dr. Tai [facility] at [facility], pathological specimen [id number] was notable for the absence of any residual carcinoma within the gallbladder bed. However, 2/8 regional ly mph nodes contained regionally metastatic disease. 3. Consultation by Dr. Elva Grey of the [facility] on May returned the recommendation for adjuvant chemoradiation therapy following [id number] as follows: Capecitabine at 750 mg/m sq [...] 2019 | Visit | | DO [address] | | | | | | [place] [address] | | | | | | [phone] | | | | | | | [...] [address] | [place] | [phone] | | [facility] | | [address] | | | - LABORATORY | | [...] [place] | | | | | | [address] | | | | + + + [...] [address] | [place] [address] | [phone] | + + + + + CA [...] Dr, | | | | | | [place] [address] | | | | + + + [...] [address] | [place] [address] | [phone] | + + + + + CEA [...] [address] | [place] | [phone] | | [facility] | | [address] | | | - LABORATORY | | [...] [address] | [place] | [phone] | | [facility] | | [address] | | | - LABORATORY | | [...] | mL/min/1.73m2 | [facility] | | | NEPALESE | RATE,ESTIMATED | | MEDICAL | | | | mL/min/1.91a8Bdzg than | | CENTER - | | [...] [address] | [place] | [phone] | | [facility] | | [address] | | | - LABORATORY | | [...] [address] | [place] | [phone] | | [facility] | | [address] | | | - LABORATORY | | [...] + | [facility] | [address] | [place] | [phone] | | [facility] | | [address] | | | - LABORATORY | | | | + + + + + | [facility] | [address] | [place], [place] | | | [facility] | | [address], [facility] | | | - LABORATORY [...] | | | | | mg/dL | [facility] | | | | | | MEDICAL | | | | | | CENTER - | | | | | | LABORATORY | | + + + + + + | eGFR if not | >60Comment: GLOMERULAR | >=60 | [facility] | | | | FILTRATION | mL/min/1.73m2 | [facility] | | | NEPALESE | RATE,ESTIMATED | | MEDICAL | | | | mL/min/1.03z9Mijl than | | CENTER - | | [...] | | | | | mg/dL | [facility] | | | | | | MEDICAL [...] + | [facility] | [address] | [place], [place] | [phone] | | [facility] | | [address] | | | - LABORATORY | | | | + + + + + | [facility] | [address] | [place] | | | [facility] | | [address] | | | - LABORATORY [...] + | [facility] | [address] | [place] | [phone] | | [facility] | | [id number] | | | - LABORATORY | | | | + + + + + | [facility] | [address] | [place] | | | [facility] | | [id number] | | | - LABORATORY [...] + | [facility] | [address] | [place] | [phone] | | [facility] | | [id number] | | | - LABORATORY | | | | + + + + + | [facility] | [address] | [place], [place] | | | [facility] | | [id number] | | | - LABORATORY [...] | | | | | | [place] [id number] | | | | + + + [...] [address] | [place] [address] | [phone] | + + + + + documented [...]
--- OUTSIDE RECORDS SUMMARY | ~2019-07-09 | XMS | Encounter Summary ---
Demographics + + + | Address | [address] | | | [place] [address] | + + + | Home Phone [...] + | Author | [facility] | | | and Eduardoana | + + + | Organization | [facility] | | | and Eduardoana | + + + | Address | Unknown | + + + | Phone | Unavailable | + + + Support + + + + + | Name | Relationship | Address | Phone | + + + + + | Poncho Oquendo | ECON | [address] | | | | | [place] | | | | | [address] | | + + + + + | Marta Upton | ECON | [place] | | | | | [address] | | + + + + + Care Team Providers + +------+ + | Care Inflated Pad Buffer Name | Role | Phone | [...] | | Carcinoma | Reinaldo, | [address] [place] [address] | | | | | of gall | Epifanio C, | [place], | | | | | bladder | MD [address] | [place] [address] | | | | | (HCC) | [address] | Phone: | | | | | Procedures | [place], | [phone] | | | | | CT Abdomen | [place] [address] | Fax: | | | | | Pelvis w | Phone: | [phone] | | | | | Contrast | [phone] | | | | | | | Fax: | | | | | | | [phone] | | +--------+--------+ + + + + [...] | (Primary Dx) | | | | [place], | [place] [address] | | | | | [place] [address] | [phone] | | | | | [phone] | | | +--------+ + + + [...] [address] | | | | | | [place] [address] | | | | | | [phone] | | | | | | | [...] [address] | [place] | [phone] | | [facility] | | [address] | | | - LABORATORY | | [...] | | | | | | [place] [address] | | | | + + + [...] [address] | [place] [address] | [phone] | + + + + + Lactate [...] + | [facility] | [address] | [place] | [phone] | | [facility] | | [address] | | | - LABORATORY | | [...] mL/min/1.73m2 | [facility] | | | MAURITIAN | RATE,ESTIMATED | | MEDICAL | | | | mL/min/1.85h0Rarx than | | CENTER - | | [...] | 8.6 | 8.3 - 10.5 | [facility] | | | | | mg/dL [...] | appended report. These | | [facility] | | | | results have been [...] 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
--- OUTSIDE RECORDS SUMMARY | ~2019-07-09 | XMS | Encounter Summary ---
Demographics + + + | Address | [address] | | | [place] [address] | + + + | Home Phone [...] Author | [facility] | | | and Eduardoana | + + + | Organization | [facility] | | | and Eduardoana | + + + | Address | Unknown | + + + | Phone | Unavailable | + + + Support + + + + + | Name | Relationship | Address | Phone | + + + + + | Poncho Oquendo | ECON | [address] | | | | | [place] | | | | | [address] | | + + + + + | Marta Upton | ECON | [place] | | | | | [address] | | + + + + + Care Team Providers + +------+ + | Care Grease Monkey Name | Role | Phone | + [...] | | | ONCOLOGY CLINIC [address] | [facility] | | | | | [facility] | [place] [address] | | | | | [place] [address] | [phone] | | | | | [phone] | | | +--------+ + + + [...] H[facility]OWER | | | | | | [facility] [address] | | | | | | [phone] | | | | | | | | +--------+---------+ + + + documented as of this encounter Visit Diagnoses Not on filedocumented in this encounter"
--- OUTSIDE RECORDS SUMMARY | ~2019-07-09 | XMS | Encounter Summary ---
Demographics + + + | Address | [address] | | | [place] [address] | + + + | Home Phone [...] Team Providers + +------+ + | Care Court Interpreter Name | Role | Phone | + [...] | | 2012 | | Oncology at [facility] | [address] | Request | | | | [address] [facility] | [facility] [address] | | | | | Mailcode: CH7M | [place] [address] | | | | | [facility] | [phone] | | | | | and Brittny, | | | | | | [facility] | | | | | | [place], [place] | | | | | | [address] | | | | | | [phone] | | | +--------+ + + + [...]
--- OUTSIDE RECORDS SUMMARY | ~2019-07-09 | XMS | Encounter Summary ---
Demographics + + + | Address | [address] | | | [place] [address] | + + + | Home Phone [...] Team Providers + +------+ + | Care Cooker Sulfate Name | Role | Phone | + [...] 2012 | | [address] | [address] [facility] | LAPAROSCOPY WITH | | | | Rd [facility] | [facility] | BIOPSY, OPEN SEGMENT | | | | Hospital Admitting | [place], [place] | 4B/5 LIVER | | | | Desk Located on the | [address] | RESECTION, PORTAL | | | | 9th floor | [phone] | LYMPHADENECTOMY | | | | [place], [place] | | Specimens x 6 (FS) | | | | [address] | | | +--------+---------+ + + + [...] acute cholecystitis. Her pathology was reviewed at [facility]. She underwent a CT scan, which showed [...] working on arranging an appointm ent with [facility] Oncology for treatment planning. FINAL PATHOLOGY: Final [...] severe diarrhea.During normal business hours please call [facility] loreto .For 'after hours' URGENT problems please call the [facility] churn operator margarine at and ask for the "Blue Surgery [...] None Your Follow-Up Plan Follow up with [facility] HEMATOLOGY ONCOLOGY [facility]. (Please expect a call from the Oncology clini c in the next several days to schedule an appointment with either Dr. Grey or Dr. Ledesma ) Contact information: [address] [facility] [facility] [address] Future Appointments Date & Time Provider Department Dept Phone Center 05/17/2012 11:30 AM CORNELIA KNUTSON MD [facility] [phone] [facility] Discharging Physician: MARCO ANTONIO BEATTY NP Attending Physician: MD Marco Antonio Mauricio RN, MSN, LOCOMOTIVE OPERATOR HELPER [facility] Blue Surgery Pager# [phone] 9:37 AM 05/04/2012 documented in this enc [...] 05/03/12699 - 05/04/1265805/04/12699 - 05/05/12 0659(Discharged) Shift 0265-0706 4336-2551 2225-3192 Daily Total 9623-2197 9519-3519 6700-4883 Daily Total I N T A K E P.O. 925 942 445 9257 500 500 I.V. 5 10 15 Shift Total 930 059 762 8755 500 500 O U T P U T Urine 1050 5325 439 3658 400 400 Urine 1050 9682 336 4427 400 400 Other Stool 1 1 Shift Total 1050 1624 628 6496 400 400 NET -120 -1090 205 -1005 [...] Attending Physician: Dr. Romy Beatty RN, MSN, LOCOMOTIVE OPERATOR HELPER [facility] Blue Surgery Pager# [phone] 12:54 PM 05/04/2012 Current Inpatient Medications Medication [...] Parish Arias MD - 5:51 AM PDT [facility] Department of Surgery Blue Surgery Progress Note [...] - 04/30/1259 04/30/12699 - 05/01/12 0659 Shift 7082-9293 5388-0358 9495-7027 Daily Total 4088-9209 0411-6812 6146-4938 Daily Total I N T A K E P.O. 620 421 261 1444 P.O. 620 451 343 5781 I.V. 1977.33 977.5 982.5 3937.33 0 0 [...] O U T P U T Urine 378 028 4248 2004 I/O Urinary Drain Output (Urinary Cath Placement López) 448 152 3120 2004 Shift Total 241 911 6335 2005 NET 2415.83 837.5 307.5 3560.83 0 [...] tomorrow Parish Blackburn MD Surgery, R1 Pager: [phone] ilvia Del Toro NP - 05/01/2012 2:19 PM PDTPain fairly well controlled on oral medications. No longer nauseated, tolerating 10 mg oxycodone Epidural catheter discontinued, tip intact. APS will sign off, please call us back if there are any pain related concerns for us to add ress. Silvia Del Toro NP Adult Pain Service Pager [phone] Team Pager [phone] Silvia Mckeon NP - 05/01/2012 8:56 AM [...] and summary of old medical records (source: [email or web address]), as summarized in the body of the note. SILVIA DEL TORO NP BILLING INFORMATION [facility]: [id number] Place of Service:- Inpatient Date of Service: 05/01/2012 CSN: [id number] Suggested Modifier: None Suggested CPT: 17488 - Daily mgmt epidural/subarachnoid drug administration Prolonged service: n/a Parish Arias MD - 05/01/2012 5:44 AM PDT [facility] Department of Surgery Blue Surgery Progress Note [...] 0659 04/30/12 07 - 05/01/12 0659 Shift 0013-4966 4478-0177 2647-1617 Daily Total 0304-8144 0430-4485 3991-3799 Daily Total I N T A K E P.O. 620 137 726 7053 P.O. 620 133 587 6975 I.V. 1977.33 977.5 982.5 3937.33 0 0 [...] O U T P U T Urine 962 002 9397 2004 I/O Urinary Drain Output (Urinary Cath Placement López) 310 385 0226 2004 Shift Total 748 400 9358 2005 NET 2415.83 837.5 307.5 3560.83 0 [...] course Parish Blackburn MD Surgery, R1 Pager: [phone] Parish Arias MD - 11:59 AM PDT [facility] Department of Surgery Blue Surgery Progress Note [...] Date 04/29/12699 - 04/30/1265804/30/12699 - 05/01/12658 Shift 1300-8750 0322-6412 6037-0842 Daily Total 0579-8145 9414-0257 2129-6264 Daily Total I N T A K E P.[address]. 620 077 796 1177 P.O. 620 745 051 9843 I.V. 1977.33 977.5 982.5 3937.33 0 0 [...] O U T P U T Urine 178 387 2966 2004 I/O Urinary Drain Output (Urinary Cath Placement López) 613 862 7815 2004 Shift Total 138 469 4840 2004 NET 2415.83 837.5 307.5 3560.83 0 [...] qhs 6. Dispo: pending clinical course Parish Blackubrn MD Surgery, R1 Pager: [phone] Sasha Antony MD - 04/30/2012 7:03 AM [...] primary service. JOSE MALAGON MD BILLING INFORMATION [facility]: [id number] Place of Service:- Inpatient Date of Service: 04/30/2012 CSN: [id number] Suggested Modifier: GC - Resident Involved Suggested CPT: 74049 - Daily mgmt epidural/subarachnoid drug administration Prolonged [...] the floor later today. 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 [facility] Hypotension Fluid bolus as needed to [...] for intervention Dispo TRANSFER TO [facility] ONLY Sasha Antony MD - 04/29/2012 7:43 [...] making: N/a JOSE MALAGON MD BILLING INFORMATION [facility]: [id number] Place of Service:08865- Inpatient Date of Service: 04/29/2012 CSN: [id number] Suggested Modifier: GC - Resident Involved Suggested CPT: 81078 - Daily mgmt epidural/subarachnoid drug administration Prolonged [...] MD Department of Obstetrics & Gynecology, PGY1 [facility] Pager [phone] documented in thi s encounter Plan of [...] [facility] | [address] | [place] [address] | | | SERVICES, CORE | PARK [...] + + + + | [facility] | [address] | [place] [address] | | | SERVICES, CORE | PARK [...] | + + + + + | [facility] | [address] | [place] [address] | | | SERVICES, CORE | NEAL [...] + + + + | [facility] | [address] | [place] [address] | | | SERVICES, CORE | PARK [...] + + + + | [facility] | [address] | [place] [address] | | | SERVICES, CORE | [address] | | | + + + + + MAGNESIUM, PLASMA (05/03/2012 6:00 AM PDT) + +-------+ + + + | Component | Value | Ref Range | Performed | Pathologist | | | | | At | Signature | + +-------+ + + + | MAGNESIUM,P | 1.8 | 1.8 - 2.5 mg/dL | MSHANDY | | | TALIBMA | | | [...] | + + + + + | [facility] | [address] | [place] [address] | | | SERVICES, CORE | NEAL [...] | + + + + + | [facility] | [address] | [place] [address] | | | SERVICES, CORE | NEAL [...] [facility] | [address] | [place] [address] | | | SERVICES, CORE | PARK [...] + + + + | [facility] | [address] | [place] [address] | | | SERVICES, CORE | NEAL [...] (H) | 60 - 99 mg/dL | [facility] - | | | GLUCOSE, | | [...] BRUNNER | [address] | [place], [place] | | | JOHN CONTE OF ARJUN | [address] | [address] | | | TESTS | | | [...] | + + + + + | [employer] | [address] | [place] [address] | | | SERVICES, CORE | PARK [...] MARQUAM | [address] | [place], [place] | | | JOHN CONTE OF CARE | [address] | [address] | | | TESTS | | | [...] + + + + | [facility] | [address] | [place] [address] | | | GAVIN, CORE | PARK [...] | + + + + + | [facility] | [address] | [place] [address] | | | SERVICES, CORE | [address] | | | + + + [...] + + + + | [facility] | [address] | [place] [address] | | | SERVICES, CORE | NEAL [...] (H) | 60 - 99 mg/dL | [facility] - | | | GLUCOSE, | | [...] BRUNNER | [address] | [place], [place] | | | JOHN CONTE OF [facility] | [facility] | [address] | | | TESTS | | | [...] KANNAN | [address] | [place], [place] | | | JOHN CONTE OF ARJUN | [address] | [address] | | | TESTS | | | [...] + + + + | [facility] | [address] | [place] [address] | | | SERVICES, CORE | NEAL [...] + + + + | [facility] | [address] | [place] [address] | | | GAVIN, CORE | [address] | | | + + + + + MAGNESIUM, PLASMA (04/30/2012 6:42 AM PDT) + +-------+ + + + | Component | Value | Ref Range | Performed | Pathologist | | | | | At | Signature | + +-------+ + + + | MAGNESIUM,P | 1.8 | 1.8 - 2.5 mg/dL | MSHANDY | | | TALIBMA | | | [...] | + + + + + | [facility] | [address] | [place] [address] | | | SERVICES, CORE | NEAL [...] LABORATORY | [address] | [place] [address] | | | SERVICES, [facility] | [facility] | | | + + + + + OPERATION RECORD (04/29/2012 5:13 PM PDT) + + | Transcriptions | + + | Ruba Muhammad MD - 04/28/2012 10:30 PM PDT Date: | | 04/28/2012ttending Surgeon: Cornelia Knutson M.D.Agricultural Production Engineer(s): | | VENKATA Mcclainreoperative Diagnosis(es):Gallbladder | | [...] with an incidental finding of | | M2enmkqibywau adenocarcinoma at her recent laparoscopic cholecystectomy foracute | | cholecystitis. Her pathology was reviewed at [facility]. She underwent aCT scan, which | | [...] for RSI | | was completed.Cornelia Knutson M.D.[facility] ([facility])Professor | | and Vice-Cable Tower Operator of SurgeryThe Shahriar Nava Chair for Pancreatic Disease | | ResearchPancreatic/ HepatoBiliary and Foregut Working GroupsMail Code [id number] [facility] | | [place], [place]. [address]Lekqu Fax [phone] | | [phone]: [email or web address] Knutson M.D.Professor and Vice-Cable Tower Operator of | | SurgeryThe Shahriar Nava Chair for Pancreatic Disease ResearchErlanger Health System | | [place] ([facility])Division of Gastrointestinal and General Surgery / [id number] / | | [id number] / [id number] / T: 04/28/2012 | |with electrocautery. Biopsy [...] | | | |Cornelia Knutson M.D. | |[facility] ([facility]) | |Professor and Vice-Cable Tower Operator of Surgery | |The Shahriar Nava Chair for Pancreatic Disease Research | |Pancreatic/ HepatoBiliary and Foregut Working Groups | |Mail Code [id number] | |[address] [facility] | |[place], [place]. [address] | | | | | |email: [email or web address] | | | | | |Cornelia Knutson M.D. | |Professor and Vice-Cable Tower Operator of Surgery | |The Shahriar Nava Chair for Pancreatic Disease Research | |[facility] ([facility]) | |Division of Gastrointestinal and General Surgery | | | |JS / HS | |[id number] / [id number] / [id number] / | | | | | + + CBC (04/29/2012 1:43 AM PDT) + + + + + + | Component | Value | Ref Range | Performed | Pathologist | | | | | At | Signature | + + + + + + | WBC COUNT | 10.5 | 4.4 - 11.0 K/cu | [facility] | | | | | mm | [...] [facility] | [address] | [place] [address] | | | SERVICES, CORE | PARK [...] | + + + + + | [facility] | [address] | [place] [address] | | | SERVICES, CORE | [address] | | | + + + + + MAGNESIUM, PLASMA (04/29/2012 1:43 AM PDT) + +-------+ + + + | Component | Value | Ref Range | Performed | Pathologist | | | | | At | Signature | + +-------+ + + + | MAGNESIUM,P | 2.5 | 1.8 - 2.5 mg/dL | [facility] | | | LASMA | | | [...] + + + + | [facility] | [address] | [place] [address] | | | SERVICES, CORE | PARK [...] | + + + + + | [facility] | [address] | [place] [address] | | | SERVICES, CORE | PARK [...] in | | | | | | [facility]. No | | | | | | [...] [facility] | [address] | [place] [address] | | | SERVICES, CORE | PARK [...] + + + + | [facility] | [address] | [place] [address] | | | SERVICES, CORE | PARK [...] | + + + + + | [employer] | [address] | [place] [address] | | | SERVICES, CORE | NEAL [...] [facility] | [address] | [place] [address] | | | SERVICES, CORE | PARK [...] + + + + | [facility] | [address] | [place] [address] | | | SAM ALONSO | NEAL [...] | 1.0 | 0.5 - 1.6 | [facility] - | | | | | mmol/L [...] MARMARTINEAM | [address] | [place], [place] | | | JOHN CONTE OF ARJUN | [facility] | [address] | | | TESTS | | | [...] BRUNNER | [address] | [place], [place] | | | DG POINT OF CARE | [address] | [address] | | | TESTS | | | [...] MARQUAM | [address] | [place], [place] | | | DG POINT OF CARE | [address] | [address] | | | TESTS | | | [...] - MARQUAM | [address] | [place], [place] | | | JOHN CONTE OF CARE | [address] | [address] | | | TESTS | | | [...] + + + | GWEN BRUNNER | [address] | [place], [place] | | | DG POINT OF CARE | [address] | [address] | | | TESTS | | | [...] MARQUAM | [address] | [place], [place] | | | DG POINT OF CARE | [address] | [address] | | | TESTS | | | [...] - MARQUAM | [address] | [place], [place] | | | JOHN CONTE OF CARE | [address] | [address] | | | TESTS | | | [...] BRUNNER | [address] | [place], [place] | | | DG POINT OF CARE | [address] | [address] | | | TESTS | | | [...] bed. | | | | | | Over Hauler Helper | | | | | | sections [...] vein. | | | | | | Over Hauler Helper | | | | | | sections [...] | | | | | | [id number], employee's representative | | | | | | [...] [facility] | [address] | [place] [address] | | | PATHOLOGY | [address] [...]
--- OUTSIDE RECORDS SUMMARY | ~2019-07-09 | XMS | Encounter Summary ---
Demographics + + + | Address | [address] | | | [place] [address] | + + + | Home Phone [...] Providers + +------+ + | Care Supervisor Inventory Merchandising Name | Role | Phone | + +------+ + PCP | Unavailable | + +------+ + Encounter Details +--------+ + + + + | Date | Type | Department | Care Team | Description | +--------+ + + + + | 04/11/ | Abstract | Digestive Health | Tai Stanton, | | | 2012 | | [place] [facility] [address] | [address] | | | | | Eric[address]on [address] | [address] | | | | | Mailcode: [place] | [place], [place] | | | | | for Health and | [address] | | | | | [place] [address] | [phone] | | | | | [place], [place] | | | | | | [address] | | | | | | [phone] | | | +--------+ + + + [...]
--- OUTSIDE RECORDS SUMMARY | ~2019-07-09 | XMS | Encounter Summary ---
Demographics + + + | Address | [address] | | | [place] [address] | + + + | Home Phone [...] Author | [facility] | | | and Eduardoana | + + + | Organization | [facility] | | | and Eduardoana | + + + | Address | Unknown | + + + | Phone | Unavailable | + + + Support + + + + + | Name | Relationship | Address | Phone | + + + + + | Poncho Oquendo | ECON | [address] | | | | | [place] | | | | | [address] | | + + + + + | Marta Upton | ECON | [address] [place] | | | | | [address] | | + + + + + Care Team Providers + +------+ + | Care Director For [employer] Name | Role | Phone | + [...] 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, | [place]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 | MD [address] | [place], | | | | | (HCC) | [address] | [place] [address] | | | | | Procedures | [place], | Phone: | | | | | [place] | [place] [address] | [phone] | | | | | DIPHENHYDRAM | Phone: | Fax: | | | | | INE HCL | [phone] | [phone] | | | | | INJECTIO, 50 | Fax: | | | | | | [place] | [phone] | | | | | | ONDANSETRON | | | | | | | HCL | | | | | | | INJECTION, 1 | | | | | | | [place] | | | | | | | DEXAMETHASON | | | | | | | E SODIUM | | | | | | | PHOS, 1 MG | | | | | | | [place] | | | | | | | FOSAPREPITAN | | | | | | | T INJECTION, | | | | | | | 1 MG [place] | | | | | | | CISPLATIN 10 | | | | | | | MG | | | | | | | INJECTION | | | | | | | [place] | | | | | | | GEMCITABINE | | | | | | | HCL | | | | | | | INJECTION, | | | | | | | 200 MG [place] | | | | | | | METHYLPREDNI | | | | | | | SOLONE | | | | | | | INJECTION, | | | | | | | 125 MG [place] | | | | | | | INJ | | | | | | | FILGRASTIM | | | | | | | GCSF | | | | | | | BIOSIMIL [place] | | | | | | | NORMAL | | | | | | | SALINE | | | | | | | SOLUTION | | | | | | | INFUS, 500 | | | | | | | ML [place] | | | | | | | NORMAL | | | | | | | SALINE | | | | | | | SOLUTION | | | | | | | INFUS, 250 | | | | | | | ML [place] | | | | | | | STERILE | | | | | | | WATER/SALINE | | | | | | | , 10 ML [place] | | | | | | | CHEMOTHER, | | | | | | | IV PUSH,EA | | | | | | | ADD DRUG [place] | | | | | | | CHEMOTHER, | | | | | | | IV INFUSION, | | | | | | | 1 HR [place] | | | | | | | CHEMOTHER, | | | | | | | IV INFUSION, | | | | | | | EA HR [place] | | | | | | | CHEMOTHER,NO | | | | | | | N-HORMONE | | | | | | | ANTI-NEOPL, | | | | | | | SUB-Q/IM [place] | | | | | | | [...] + + | 05/21/ | Hospital | [facility] | Mathieu Langford | Gallbladder cancer, | | 2017 | Encounter | [facility] | MD Epifanio [address] | carcinoma (HCC) | | | | INFUSION [address] [place] | | | | | [place] [place], | [place] [address] | | | | | [place] [id number] | [phone] | | | | | [phone] | | | +--------+ + + + [...] [address] | | | | | | [place] [address] | | | | | | [phone] | | | | | | | [...]
--- OUTSIDE RECORDS SUMMARY | ~2019-07-09 | XMS | Encounter Summary ---
Demographics + + + | Address | [address] | | | [place] [address] | + + + | Home Phone [...] + + + | Author | [facility] | + + + | Organization | [facility] | + + + | [...] Team Providers + +------+ + | Care Technology And Engineering Teacher Name | Role | Phone | [...] | | | | | cancer | [address] | [address] | | | | | (HCC) | Francesco Agosto | [facility] | | | | | Procedures | [address] | [address] | | | | | CONSULT TO | [facility] [place] | [facility] [place] | | | | | HEMATOLOGY / | [address] | [address] Phone: | | | | | ONCOLOGY | Phone: | [phone] | | | | | PRACTICE | [phone] | Fax: | | | | | | Fax: | [phone] | | | | | | [phone] | | + +--------+ + + + [...] | cancer | [address] | [address] [facility] | | | | | (HCC) | Francesco Agosto | [address] | | | | | Procedures | [address] | [address] [place], | | | | | CONSULT TO | [place], [place] | [place] | | | | | SURGERY - | [address] | [address] | | | | | GENERAL | Phone: | Phone: | | | | | | [phone] | [phone] | | | | | | Fax: | Fax: | | | | | | [phone] | [phone] | +--------+--------+ + + + + Encounter Details +--------+ + + + + | Date | Type | Department | Care Team | Description | +--------+ + + + + | 06/14/ | Pipeline Dispatch Operator | [facility] | Miguel Seymour, | Gallbladder cancer | | 2015 | | [facility] | [address] | (HCC) (Primary Dx) | | | | Alexis [address] | [facility] | | | | | [address] | [place], [place] | | | | | Alexis, [facility] floor | [address] | | | | | [place], [place] | [phone] | | | | | [address] | | | | | | [phone] | | | +--------+ + + + [...]
--- OUTSIDE RECORDS SUMMARY | ~2019-07-09 | XMS | Encounter Summary ---
Demographics + + + | Address | [address] | | | [place] [address] | + + + | Home Phone [...] Team Providers + +------+ + | Care Iridologist Name | Role | Phone | + +------+ + | Tomasa Wagner | PCP | | + +------+ + Encounter Details +--------+ + + + + | Date | Type | Department | Care Team | Description | +--------+ + + + + | 06/20/ | MyChart | [facility] | Miguel Seymour, | RE: Do I need to | | 2014 | Encounter | [facility] | [address] | continue the Lovenox | | | | Alexis [address] | [address] | injections? | | | | [address] | [place], [place] | | | | | Alexis, [facility] floor | [address] | | | | | [place], [place] | [phone] | | | | | [address] | | | | | | [phone] | | | +--------+ + + + [...]
--- OUTSIDE RECORDS SUMMARY | ~2019-07-09 | XMS | Encounter Summary ---
Demographics + + + | Address | [address] | | | [place] [address] | + + + | Home Phone [...] Team Providers + +------+ + | Care Polisher Eyeglass Frames Name | Role | Phone | + [...] | | | | | Procedures | [place], [place] | [place], [place] | | | | | CONSULT TO | [address] | [address] | | | | | ENT / FACIAL | Phone: | Phone: | | | | | PLASTIC | [phone] | [phone] | | | | | SURGERY | Fax: | Fax: | | | | | | [phone] | [phone] | +--------+--------+ + + + + Encounter [...] (Primary Dx) | | | | [address] [place], | | | | | Services at [facility] | [place] [address] | | | | | [address] | | | | | | Mailcode: CH5E | | | | | | [facility] | | | | | | and Healing, | | | | | | Building 1, 5th | | | | | | Floor [place], [place] | | | | | | [address] | | | | | | [phone] | | | +--------+---------+ + + + [...] + documented as of this encounter Progress Jose Maynard - 03/07/2008 10:00 PM PSTClinic: Facial Plastic [...] BTL Allergies: nkda Social History: Lives in [place]. Past smoking history, none now. No alcohol [...] wishes to sc hedule. Jose Olivia MD Manager Mental Health Facial Plastic and Reconstructive Surgery Department of Otolaryngology/Head and Neck Surgery [facility] Email - [email or web address] documented in this encounter Plan of Treatment Not on filedocumented as of this encounter Visit Diagnoses + + | Diagnosis | + + | Nasal septal defect - Primary Other diseases of nasal cavity and sinuses | + + documented in this encounter"
--- OUTSIDE RECORDS SUMMARY | ~2019-07-09 | XMS | Encounter Summary ---
Demographics + + + | Address | [address] | | | [place] [address] | + + + | Home Phone [...] Team Providers + +------+ + | Care Stage Rigger Name | Role | Phone | + [...] | 2014 | Encounter | [facility] [place] | [address] | Return to Work | | | | [address] | [address] | Authorization? | | | | [address] | [place], [place] | | | | | Alexis, [facility] floor | [address] | | | | | [place], [place] | [phone] | | | | | [address] | | | | | | [phone] | | | +--------+ + + + [...]
--- OUTSIDE RECORDS SUMMARY | ~2019-07-09 | XMS | Encounter Summary ---
Demographics + + + | Address | [address] | | | [place] [address] | + + + | Home Phone [...] Author | [facility] | | | and [place] | + + + | Organization | [facility] | | | and [place] | + + + | Address | Unknown | + + + | Phone | Unavailable | + + + Support + + + + + | Name | Relationship | Address | Phone | + + + + + | Poncho Oquendo | ECON | [address] | | | | | [place] | | | | | [address] | | + + + + + | Marta Upton | ECON | [place] | | | | | [address] | | + + + + + Care Team Providers + +------+ + | Care Ergonomics Engineer Name | Role | Phone | [...] [place] | | | | | [address] | [place] [address] | | | | | [place] [address] | [phone] | | | | | [phone] | | | +--------+ + + + [...] THOMASTAI | | | | | | [place] [address] | | | | | | [phone] | | | | | | | | +--------+---------+ + + + documented as of this encounter Visit Diagnoses + + | Diagnosis | + + | Gallbladder cancer, 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
--- OUTSIDE RECORDS SUMMARY | ~2019-07-09 | XMS | Encounter Summary ---
Demographics + + + | Address | [address] | | | [place] [address] | + + + | Home Phone [...] Providers + +------+ + | Care Supervisor Wet End Name | Role | Phone | + +------+ + | Tomasa Wagner | PCP | | + +------+ + Encounter Details +--------+ + + + + | Date | Type | Department | Care Team | Description | +--------+ + + + + | 06/01/ | Abstract | [facility] | Tai Stanton, | | | 2012 | | [place] [facility] [address] | [address] | | | | | [address] | [address] | | | | | Mailcode: Center | [place], [place] | | | | | [facility] and | [address] | | | | | Healing, Building 2 | [phone] | | | | | [place], [place] | | | | | | [address] | | | | | | [phone] | | | +--------+ + + + [...]
--- OUTSIDE RECORDS SUMMARY | ~2019-07-09 | XMS | Encounter Summary ---
Demographics + + + | Address | [address] | | | [place] [address] | + + + | Home Phone [...] Author + + + | Author | [facility] | + + + | Organization | [facility] | + + + | Address [...] Team Providers + +------+ + | Care Statistical Clerk Advertising Name | Role | Phone | + [...] | 2015 | Encounter | [facility] | [address] | Movement What Is My | | | | Alexis [address] | [facility] | Next Step? | | | | [address] | [place], [place] | | | | | Alexis, [facility] floor | [address] | | | | | [place], [place] | [phone] | | | | | [address] | | | | | | [phone] | | | +--------+ + + + [...]
--- OUTSIDE RECORDS SUMMARY | ~2019-07-09 | XMS | Encounter Summary ---
Demographics + + + | Address | [address] | | | [place] [address] | + + + | Home Phone [...] + | Author | [facility] | | | and [place]ardo[place] | + + + | Organization | [facility] | | | and [place]ardo[place] | + + + | Address | Unknown | + + + | Phone | Unavailable | + + + Support + + + + + | Name | Relationship | Address | Phone | + + + + + | Poncho Oquendo | ECON | [address] | | | | | [place] | | | | | [address] | | + + + + + | Marta Upton | ECON | [place] | | | | | [address] | | + + + + + Care Team Providers + +------+ + | Care Magnetizer Name | Role | Phone | + [...] | Procedures | [address] | [place] [address] | | | | | ID OFFICE | OBED, | Phone: | | | | | OUTPATIENT | [place] [address] | [phone] | | | | | VISIT 25 | | Fax: | | | | | MINUTES | | [phone] | +--------+--------+ + + + + Encounter Details +--------+ + + + + | Date | Type | Department | Care Team | Description | +--------+ + + + + | 11/22/ | Hospital | [facility] | Vladimir Roblse, | Cholangiocarcinoma | | 2015 | Encounter | [facility] | MD Mondragon [address] ASHANTI | (HCC) (Primary Dx); | | | | ONCOLOGY CLINIC [address], | Pancytopenia due to | | | | [address] [place] | [place] [address] | antineoplastic | | | | [place] [address] | [phone] | chemotherapy (HCC) | | | | [phone] | | | +--------+ + + + [...] fr om the original. Hematology/Oncology Progress Note [facility] Pt. Name/Age/: Aura Upton 54 y.o. 1960 Med. Record Number: [id number] Date of admission: 11/22/2014 Identifying Statement: Aura Upton is a 54 y.o. female from [address] [place] [address] with Recurrent Cholangiocarcinoma. The patient chart and medications were reviewed in detail and the patient was seen and exam ined. History of Present Illnesses, their Current Assessments and Plans: Gallbladder cancer, carcinoma Overview ACTIVE DIAGNOSES: Recurrent cholangiocarcinoma. 1. Presentation with biliary colic in March of 2012; status post cholecystectomy and hailee er biopsy by Dr. Brandon Garcia March 29, 2012, pathological specimen [id number], analyzed by Dr. Bowers of [facility] and was notable for a poorly-differentiated adenoc arcinoma of the gallbladder. Liver biopsy demonstrated mild portal inflammation. 2. On April 28, 2012, she successfully underwent an R0 resection by Dr. Tai Stanton at [facility], pathological specimen [id number] was notable for the absence of any residual carcinoma within the gallbladder bed. However, 2/8 regional lym ph nodes contained regionally metastatic disease. 3. Consultation by Dr. Elva Grey of the [facility] on May returned the recommendation for adjuvant chemoradiation therapy following [id number] as follows: Capecitabine at 750 mg/m sq [...] staging by Dr. Oziel Casillas of the [facility]. Pathological a nalysis was notable for [...] 7. Consultation with Dr. Elva Grey the [facility] in June 26 015 who recommended additional chemotherapy was cisplatin at 75 mg meter squared on day 1 an d gemcitabine 1250 mg per meter squared on day one and day 8 of acute 21 day cycle for 6-8 c ycles. A second opinion was obtained by Dr. Richie Thayer of the [facility] who returned the recommendation for additional chemotherapy [...] the recommendations of Dr. Richie [facility]of the [facility] [place] with gemcitabine at 1000 mg per meter squared on day one and day 8 wi th cisplatin 25 mg meter squared on day one and day 8 of a Q 21 day cycle beginning on July 26, 2014 complicated by grade 3 neutropenia and grade [address] scan of the chest, abdomen and pelvis that [facility] on September 16, 2014 demonstrated no [...] time. Plan: 1. Proceed with day 1 cis-lower brule and gemcitabine as outlined above. 2. Neutropenic [...] has been changed since signin Order Audit [facility] amitriptyline (ELAVIL) 10 mg tablet (Taking) Take 10 mg by mouth nightly. Number of times this order has been changed since signin Order [facility] dexamethasone (DECADRON) 4 mg tablet (Taking) Take one tablet PO as directed. Number of times this order has been changed since signin Order [facility] docusate calcium (SURFAK) 240 mg capsule (Taking) Take 240 mg by mouth as needed. Number of times this order has been changed since signin Order [facility] fish oil 1,000 mg capsule (Taking) Take 1,000 mg by mouth Daily. Number of times this order has been changed since signin Order [facility] HYDROcodone-acetaminophen (VICODIN) 5-500 mg per tablet (Taking) Take 1 tablet by mouth e very 4 hours as needed. Number of times this order has been changed since signin Order [facility] MULTIPLE VITAMIN PO (Taking) Take by mouth Daily. Number of times this order has been changed since signin Order [facility] ondansetron (ZOFRAN ODT) 8 mg disintegrating tablet (Taking) Take 8 mg by mouth every 8 h ours as needed for Nausea. Number of times this order has been changed since signin Order [facility] Probiotic Product (PROBIOTIC DAILY PO) (Taking) Take by mouth Daily. Number of times this order has been changed since signin Order Audit [facility] Allergy: Allergies Allergen Reactions Sulfa Antibiotics Rash [...] this chart may have been created with [employer] voice recognition software. Occasi onal wrong-word or [...] [address] | | | | | | [place] [address] | | | | | | [phone] | | | | | | | [...]
--- OUTSIDE RECORDS SUMMARY | ~2019-07-09 | XMS | Encounter Summary ---
Demographics + + + | Address | [address] | | | [place] [address] | + + + | Home Phone [...] Author | [facility] | | | and Eduardo[place] | + + + | Organization | [facility] | | | and Eduardo[place] | + + + | Address | Unknown | + + + | Phone | Unavailable | + + + Support + + + + + | Name | Relationship | Address | Phone | + + + + + | Poncho Oquendo | ECON | [address] | | | | | [place] | | | | | [address] | | + + + + + | Marta Upton | ECON | [place] | | | | | [address] | | + + + + + Care Team Providers + +------+ + | Care Ice Cream Scooper Name | Role | Phone | + [...] | | Carcinoma | Reinaldo, | [address] [place] | | | | | of gall | Epifanio C, | [place], | | | | | bladder | MD [address] | [place] [address] | | | | | (HCC) | [address] | Phone: | | | | | Procedures | [place], | [phone] | | | | | CT Chest | [place] [address] | Fax: | | | | | Abdomen | Phone: | [phone] | | | | | Pelvis w | [phone] | | | | | | Contrast | Fax: | | | | | | | [phone] | | +--------+--------+ + + + + [...] | | Carcinoma | Reinaldo, | [address] [place] | | | | | of gall | Epifanio C, | [place], | | | | | bladder | MD [address] | [place] [address] | | | | | (HCC) | [address] | Phone: | | | | | Procedures | [place], | [phone] | | | | | CT Chest | [place] [address] | Fax: | | | | | Abdomen | Phone: | [phone] | | | | | Pelvis w | [phone] | | | | | | Contrast | Fax: | | | | | | | [phone] | | +--------+--------+ + + + + Encounter Details +--------+ + + + + | Date | Type | Department | Care Team | Description | +--------+ + + + + | 12/17/ | Hospital | [facility] | Reinaldo, | Carcinoma of gall | | 2015 | Encounter | [facility] [address] | Epifanio Soler MD [address] | bladder (HCC) | | | | [place], | [address] [place] | | | | | [place] [address] | [place] [address] | | | | | [phone] | [phone] | | | | | | | [...] [address] | | | | | | [place] [address] | | | | | | [phone] | | | | | | | | +--------+---------+ + + + documented as of this encounter Procedures + +--------+ + + + | Procedure Name | Priori | Date/Time | Associated Diagnosis | Comments | | | ty | | | | + +--------+ + + + | CT CHEST ABDOMEN | Routin | 12/17/2014 | Carcinoma of gall | Results for this | | PELVIS W CONTRAST | e | 2:40 PM | bladder (HCC) | procedure are [...] intravenous administration of 100 mL | | [id number] contrast. Oral contrast was administered. Multiplanar reformatted [...] iohexol (OMNIPAQUE 350) 350 | Given | 12/18/19 | 100 mLs | | | | mg/mL injection 100 mL 100 mL, | | 15 2:41 | | | | | Intravenous, ONCE PRN, Other, | | PM PST | | | | | Starting 12/17/14 at 1441, For | | | | | | | 1 dose, Cat Scanner | | | | | | + +--------+ +---------+------+------+ +---+---+ | | | +---+---+ documented in this encounter"
--- OUTSIDE RECORDS SUMMARY | ~2019-07-09 | XMS | Encounter Summary ---
Demographics + + + | Address | [address] | | | [place] [address] | + + + | Home Phone [...] + | Author | [facility] | | | and Eduardoana | + + + | Organization | [facility] | | | and Eduardoana | + + + | Address | Unknown | + + + | Phone | Unavailable | + + + Support + + + + + | Name | Relationship | Address | Phone | + + + + + | Poncho Oquendo | ECON | [address] | | | | | [facility], [place] | | | | | [address] | | + + + + + | Marta Upton | ECON | [place], [place] | | | | | [address] | | + + + + + Care Team Providers + +------+ + | Care Director Geothermal Operations Name | Role | Phone | + +------+ + | No, Physician | PCP | Unavailable | + +------+ + Encounter Details +--------+ + + + + | Date | Type | Department | Care Team | Description | +--------+ + + + + | 04/26/ | Anesthesia | [facility] | [place] | | | 2019 | Event | REGIONAL SURGERY | [address] | | | | | CENTER INTRA OP | [place] | | | | | [address] | [place] [address] | | | | | [place], [place] | [phone] | | | | | [address] | | | | | | [phone] | | | +--------+ + + + [...] [address] | | eral | Forearm; ptsa-wjl-bqzoeq catheter | Jamila Aguila, | Cindy Casarez [...] 2019 | Visit | | DO [address] | | | | | | [place] [address] | | | | | | [phone] | | | | | | | [...]
--- OUTSIDE RECORDS SUMMARY | ~2019-07-09 | XMS | Encounter Summary ---
Demographics + + + | Address | [address] | | | [place] [address] | + + + | Home Phone [...] + + | Author | [facility] | + + + | Organization | [facility] | + + + | [...] Providers + +------+ + | Care Oil Heat Technician Name | Role | Phone | + +------+ + | Prudencio Isaac MD | PCP | Unavailable | + +------+ + Encounter Details +--------+ + + + + | Date | Type | Department | Care Team | Description | +--------+ + + + + | 08/05/ | Documentati | Otolaryngology | Virgilio Buck MD | | | 2008 | on | Facial Plastics & | [address] | | | | | Reconstructive | [place], | | | | | Services at [facility] | [place] [address] | | | | | [address] | [phone] | | | | | Mailcode: [address] | | | | | | [facility] | | | | | | and Healing, | | | | | | Building | | | | | | [place], [place] | | | | | | [address] | | | | | | [phone] | | | +--------+ + + + [...]
--- OUTSIDE RECORDS SUMMARY | ~2019-07-09 | XMS | Encounter Summary ---
Demographics + + + | Address | [address] | | | [place] [address] | + + + | Home Phone [...] | [facility] | | | and Eduardoana | + + + | Organization | [facility] | | | and Eduardoana | + + + | Address | Unknown | + + + | Phone | Unavailable | + + + Support + + + + + | Name | Relationship | Address | Phone | + + + + + | Poncho Oquendo | ECON | [address] | | | | | [facility] [place] | | | | | [address] | | + + + + + | Marta Upton | ECON | [place], [place] | | | | | [address] | | + + + + + Care Team Providers + +------+ + | Care Bridge Mechanic Name | Role | Phone | [...] site in | | | | [address] [place] | [place] [address] | gastrointestinal | | | | [place] [address] | [phone] | tract (Primary Dx) | | | | [phone] | | | +--------+ + + + [...] | | | | | [place] [address] | | | | | | [phone] | | | | | | | [...] + + | Performing | Address | [facility] | Phone Number | | Organization | | | | + + + + + | [facility] | [address] | [place] | [phone] | | [facility] | | [address] | | | - LABORATORY | | | | + + + + + | [facility] | [address] | [place] | | | [facility] | | [address], [facility] | | | - LABORATORY | | [...] | | | | | | [place] [address] | | | | + + + [...] | [address] | [place] [address] | [phone] | + + + + + Lactate [...] + | [facility] | [address] | [place] | [phone] | | [facility] | | [address] | | | - LABORATORY | | | | + + + + + | [facility] | [address] | [place] | | | [facility] | | [address], [facility] | | | - LABORATORY | | [...] | | | FILTRATION | mL/min/1.73m2 | [facility] | | | [place] | RATE,ESTIMATED | | MEDICAL | | | | mL/min/1.78g0Ydzs than | | CENTER - | | [...] PROVIDENCE | | | | | | [facility] | | | | | | MEDICAL [...] + | [facility] | [address] | [place] | [phone] | | [facility] | | [address] | | | - LABORATORY | | | | + + + + + | [facility] | [address] | [place] | | | [facility] | | [address] | | | [...] + | [facility] | [address] | [place], [place] | [phone] | | [facility] | | [address] | | | - LABORATORY | | | | + + + + + | [facility] | [address] | [place], [place] | | | [facility] | | [address] | | | - LABORATORY | | | | + + + + + documented in this encounter Visit Diagnoses + + | Diagnosis | + + | Personal history of malignant neoplasm of other site in gastrointestinal tract - | | Primary | + + documented in this encounter"
--- OUTSIDE RECORDS SUMMARY | ~2019-07-09 | XMS | Encounter Summary ---
Demographics + + + | Address | [address] | | | [place] [address] | + + + | Home Phone [...] + | Author | [facility] | | | and Eduardoana | + + + | Organization | [facility] | | | and Eduardoana | + + + | Address | Unknown | + + + | Phone | Unavailable | + + + Support + + + + + | Name | Relationship | Address | Phone | + + + + + | Poncho Oquendo | ECON | [address] | | | | | [facility], [place] | | | | | [address] | | + + + + + | Marta Upton | ECON | [place], [place] | | | | | [address] | | + + + + + Care Team Providers + +------+ + | Care Chopper Gun Operator Name | Role | Phone | + +------+ + PCP | Unavailable | + +------+ + Encounter Details +--------+ + + + + | Date | Type | Department | Care Team | Description | +--------+ + + + + | 03/12/ | Hospital | [facility] | Hakan Cherry | | | 2011 | Encounter | MED CTR XRAY [address] | [address] | | | | | [place] | [address] [place], [place] | | | | | [place] [address] | [address] | | | | | [phone] | | | +--------+ + + + [...] | Visit | | DO [address] [facility] | | | | | | [place] [address] | | | | | | [phone] | | | | | | | [...] Performed At | + + + | [facility] | [place]VIN | | [address] [facility] [place] | [facility] | | RIGHT HIP, 03/12/2011 | DIAG [...] Transcribed Date/Time: 03/12/2011 | | | 11:29 Research Recruiter: <Electronically Signed by Alejandro Keller | | | MD Mo> 03/12/11 1459 | | + + + + + | Procedure Note | + + | Edmundo, Hardy Conversion - 03/23/2013 4:38 PM [facility] | | Diagnostic Imaging Department [address] [facility] [place] | | RIGHT HIP, 03/12/2011 CLINICAL HISTORY: [...] by Alejandro Hassan MD> 03/12/11 | | 5329 | |FINDINGS: AP view of the pelvis [...] 11:24 | |Transcribed Date/Time: 03/12/2011 11:29 | |Research Recruiter: | |<Electronically Signed by Alejandro Hassan MD> 03/12/11 8957 | + + + +---------+ + + [...] Performed At | + + + | [facility] | [facility] | | [address] [facility] | [facility] | | LATERAL VIEWS, LUMBAR SPINE | [...] | | | Transcribed Date/Time: 03/12/2011 11:29 Research Recruiter: | | | <Electronically Signed by Alejandro Hassan MD> 03/12/11 1459 | | + + + + + | Procedure Note | + + | Hardy Wyatt Conversion - 03/23/2013 4:38 PM [facility] | | Diagnostic Imaging Department [address] [facility] [place] | | LATERAL VIEWS, LUMBAR SPINE CLINICAL [...] 11:23 | |Transcribed Date/Time: 03/12/2011 11:29 | |Research Recruiter: | |<Electronically Signed by Alejandro Hassan MD> [...]
--- OUTSIDE RECORDS SUMMARY | ~2019-07-09 | XMS | Encounter Summary ---
Demographics + + + | Address | [address] | | | [place] [address] | + + + | Home Phone [...] Team Providers + +------+ + | Care Felt Cutter Name | Role | Phone | [...] Pharmacy | | | | | | [address] | | | | | | [place], [place] | | | | | | [address] | | | | | | [phone] | | | +--------+ + + + [...]
--- OUTSIDE RECORDS SUMMARY | ~2019-07-09 | XMS | Encounter Summary ---
Demographics + + + | Address | [address] | | | [place] [address] | + + + | Home Phone [...] | Author | [facility] | | | and Eduardoana | + + + | Organization | [facility] | | | and Eduardoana | + + + | Address | Unknown | + + + | Phone | Unavailable | + + + Support + + + + + | Name | Relationship | Address | Phone | + + + + + | Poncho Oquendo | ECON | [address] | | | | | [facility] [place] | | | | | [address] | | + + + + + | Marta Upton | ECON | [place] | | | | | [address] | | + + + + + Care Team Providers + +------+ + | Care Gathering Machine Setter Name | Role | Phone [...] + + | 11/29/ | Surgery | [facility] | Pedro Green, | CYSTOSCOPY URETERAL | | 2018 | | [facility] | DO [address] [facility] | STENT stent removal | | | | OPERATING ROOM [address] | [place] [address] | and replacement | | | | [address] | [phone] | | | | | [facility] [place] | | | | | | [address] | | | | | | [phone] | | | +--------+---------+ + + + [...] out of the urethra Date Last Reviewed: 02/15/201619990987-3801 [employer]. [address] [place] [address]. All righ ts reserved. This information is [...] on your doctor's advice. Talk to your cold storage superintendent regarding the use of this medicine in children. Special care may be needed. What side effects may I notice from receiving this medicine? Side effects that you should report to your doctor or health care process manager as soon as p ossible: allergic reactions like skin rash, itching or hives, swelling of the face, lips, or tongue blue or purple color of the skin difficulty breathing fever less urine unusual bleeding, bruising unusual tired, weak vomiting yellowing of the eyes or skin Side effects that usually do not require medical attention (report to your doctor or health care process manager if they continue or are bothersome): [...] if you have any of these conditions: ejjduux-1-lrkpjwxcl dehydrogenase (G6PD) deficiency kidney disease an unusual or allergic reaction to phenazopyridine, other medicines, foods, dyes, or preser vatives or trying to get breast-feeding What should I watch for while using this medicine? Tell your doctor or health care process manager if your symptoms do not improve [...] for sugar in your urine. Talk to [facility] health care provider. NOTE:This sheet is a summary. It may not cover all possible information. If you have questi ons about this medicine, talk to your doctor, pharmacist, or health care provider. Copyright 2019 [employer] Ciprofloxacin tablets Brand Name: Cipro What is [...] information carefully each time. Talk to your cold storage superintendent regarding the use of this medicine in children. Special care may be needed. What side effects may I notice from receiving this medicine? Side effects that you should report to your doctor or health care process manager as soon as p ossible: allergic [...] (report to your doctor or health care process manager if they continue or are bothersome): [...] Check with your doctor or health care process manager if you get an attack of severe diarrhea, nausea and vomiting, or if you sweat a lot. The loss of too much body fluid can make it haile gerous for you to take this medicine. This medicine may affect blood sugar levels. If you have diabetes, check with your doctor o r health care process manager before you change your diet or [...] [address] | | | | | | [place] [address] | | | | | | [phone] | | | | | | | [...] | | | | | ([facility]) | | + +--------+ + [...] | | | | | | longer, lurzqt-ury-acoxi use of | | | | | [...]
--- OUTSIDE RECORDS SUMMARY | ~2019-07-09 | XMS | Encounter Summary ---
Demographics + + + | Address | [address] | | | [place] [address] | + + + | Home Phone [...] + + + | Author | [facility] | + + + | Organization | [facility] | + + + | Address [...] Team Providers + +------+ + | Care Snow Blower Name | Role | Phone | + +------+ + | Tomasa Wagner | PCP | | + +------+ + Encounter Details +--------+ + + + + | Date | Type | Department | Care Team | Description | +--------+ + + + + | 06/01/ | Abstract | Digestive Health | Tai Stanton, | | | 2012 | | [place] [facility] [address] | [address] | | | | | [address] | [address] | | | | | Mailcode: Center | [place], [place] | | | | | Health and | [address] | | | | | Healing, Building 2 | [phone] | | | | | [place], [place] | | | | | | [address] | | | | | | [phone] | | | +--------+ + + + [...]
--- OUTSIDE RECORDS SUMMARY | ~2019-07-09 | XMS | Encounter Summary ---
Demographics + + + | Address | [address] | | | [place] [address] | + + + | Home Phone [...] Providers + +------+ + | Care Business Continuity Planner Name | Role | Phone | [...] | | | Reconstructive | Velma [place], | | | | | Services at [facility] | [place] [address] | | | | | [address] | [phone] | | | | | Mailcode: [facility] | | | | | | [facility] | | | | | | and Healing, | | | | | | Building , | | | | | | [place], [place] | | | | | | [address] | | | | | | [phone] | | | +--------+ + + + [...]
--- OUTSIDE RECORDS SUMMARY | ~2019-07-09 | XMS | Encounter Summary ---
Demographics + + + | Address | [address] | | | [place] [address] | + + + | Home Phone [...] Author | [facility] | | | and Eduardoana | + + + | Organization | [facility] | | | and Eduardoana | + + + | Address | Unknown | + + + | Phone | Unavailable | + + + Support + + + + + | Name | Relationship | Address | Phone | + + + + + | Poncho Oquendo | ECON | [address] | | | | | [place] | | | | | [address] | | + + + + + | Marta Upton | ECON | [place] | | | | | [address] | | + + + + + Care Team Providers + +------+ + | Care Educational Therapist Name | Role | Phone | [...] [address] | | | | | [place] OFFICE | [address] | [place] | | | | | OUTPATIENT | Phone: | [address] Phone: | | | | | VISIT 25 | [phone] | [phone] | | | | | MINUTES | Fax: | Fax: | | | | | | [phone] | [phone] | +--------+--------+ + + + + Encounter Details +--------+ + + + + | Date | Type | Department | Care Team | Description | +--------+ + + + + | 09/16/ | Hospital | [facility] | Reinaldo, | Gallbladder cancer, | | 2015 | Encounter | MED CTR MEDICAL | Chad Soler MD [address] | carcinoma (HCC) | | | | [facility]COL[facility] CLINIC [address] [place] | (Primary Dx) | | | | [address] [place] | [place] [address] | | | | | [place] [address] | [phone] | | | | | [phone] | | | +--------+ + + + [...] nt from the original. Hematology/Oncology Progress Note [facility] Pt. Name/Age/: Aura Upton 53 y.o. 1960 Med. Record Number: [id number] Date of admission: 09/16/2014 Identifying Statement: Aura Upton is a 53 y.o. female from [address] [place] [id number] with Recurrent Cholangiocarcinoma. The patient chart and [...] Brandon Garcia March 29, 2012, pathological specimen [id number], analyzed by Dr. Bowers of [facility] and was notable for a poorly-differentiated adenoc arcinoma of the gallbladder. Liver biopsy demonstrated mild portal inflammation. 2. On April 28, 2012, she successfully underwent an R0 resection by Dr. Tai Stanton at [facility], pathological specimen [id number] was notable for the absence of any residual carcinoma within the gallbladder bed. However, 2/8 regional lym ph nodes contained regionally metastatic disease. 3. Consultation by Dr. Elva Grey of the [facility] on May returned the recommendation for adjuvant chemoradiation therapy following [id number] as follows: Capecitabine at 750 mg/m sq [...] staging by Dr. Oziel Casillas of the [facility]. Pathological analysis was notable for [...] 7. Consultation with Dr. Elva Grey the [facility] in June 26, [...] the recommendations of Dr. Richie Thayerof the [facility] with gemcitabine at 1000 mg per meter squared on day one and day 8 wi th cisplatin 25 mg meter squared on day one and day 8 of a Q 21 day cycle beginning on July 26, 2014 complicated by grade 3 neutropenia and grade [address]ocyt[address]. 10[address] scan of the chest, abdomen and pelvis that [facility] on September 16, 2014 demonstrated no radiographic evidence of disease. Current Assessment & Plan Aura return to clinic on September 16, [address] scan from earlier today the d emonstrates no evidence of metastatic or locally recurrent cholangiocarcinoma of the gallbla dder. Laboratory evaluation is notable for recurrent grade 3 thrombocytopenia. Plan; Aura will return to see me at the [facility] in [place], [place] on September 20, 2014 for clinical [...] has been changed since signin Order [facility] [place] dexamethasone (DECADRON) 4 mg tablet (Taking) Take one tablet PO as directed. Number of times this order has been changed since signin [facility] [place] docusate calcium (SURFAK) 240 mg capsule (Taking) Take 240 mg by mouth as needed. Number of times this order has been changed since signin [facility] [place] fish oil 1,000 mg capsule (Taking) Take 1,000 mg by mouth Daily. Number of times this order has been changed since signin [facility] [place] HYDROcodone-acetaminophen (VICODIN) 5-500 mg per tablet (Taking) Take 1 tablet by mouth e very 4 hours as needed. Number of times this order has been changed since signin [facility] [place] MULTIPLE VITAMIN PO (Taking) Take by mouth Daily. Number of times this order has been changed since signin [facility] [place] Probiotic Product (PROBIOTIC DAILY PO) (Taking) Take by mouth Daily. Number of times this order has been changed since signin [facility] [place] Allergy: Allergies Allergen Reactions Sulfa Antibiotics Objectives: [...] this chart may have been created with [employer] voice recognition software. Occasi onal wrong-word or [...] | Visit | | DO [address] [facility] | | | | | | [place] [address] | | | | | | [phone] | | | | | | | | +--------+---------+ + + + documented as of this encounter Visit Diagnoses + + | Diagnosis | + + | Gallbladder cancer, 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
--- OUTSIDE RECORDS SUMMARY | ~2019-07-09 | XMS | Encounter Summary ---
Demographics + + + | Address | [address] | | | [place] [address] | + + + | Home Phone [...] Providers + +------+ + | Care Health Care Marketing Specialist Name | Role | Phone | + +------+ + PCP | Unavailable | + +------+ + Encounter Details +--------+ + + + + | Date | Type | Department | Care Team | Description | +--------+ + + + + | 04/07/ | Rehab Nursing Tech | Digestive Health | Tai Stanton, | Gallbladder cancer | | 2012 | | [place] at [facility] [address] | [address] [facility] | (HCC) (Primary Dx) | | | | [address] | [address] | | | | | Mailcode: Center | [place], [place] | | | | | [facility] Health and | [address] | | | | | Healing, Building 2 | [phone] | | | | | [place], [place] | | | | | | [address] | | | | | | [phone] | | | +--------+ + + + [...] | | | | | | Institution: [facility] | | | | | | [facility] | | | | | | [facility] [place] | | | | | | Lab,[place], [place] | | | | | | [address]vus Accession | | | | | | Number: [id number] | | | | | | Collection [...] [place] | | | | | | MaycolPathologistCatei [...] | + + + + + | [facility] | [address] | [place] [address] | | | PATHOLOGY | [address] | | | + + + + + documented in this encounter Visit Diagnoses + + | Diagnosis | + + | 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
--- OUTSIDE RECORDS SUMMARY | ~2019-07-09 | XMS | Encounter Summary ---
Demographics + + + | Address | [address] | | | [place] [address] | + + + | Home Phone [...] Team Providers + +------+ + | Care Anthropological Linguist Name | Role | Phone | + [...] | | | | | Procedures | [place], [place] | [place], [place] | | | | | CONSULT TO | [address] | [address] | | | | | ENT / FACIAL | Phone: | Phone: | | | | | PLASTIC | [phone] | [phone] | | | | | SURGERY | Fax: | Fax: | | | | | | [phone] | [phone] | +--------+--------+ + + + + Encounter [...] | | | | [address] [place], | | | | | Services at [facility] | [place] [address] | | | | | [address] | | | | | | Mailcode: [facility] | | | | | | [facility] | | | | | | and Healing, | | | | | | Building 1, 5th | | | | | | Floor [place], [place] | | | | | | [address] | | | | | | [phone] | | | +--------+---------+ + + + [...] BTL Allergies: nkda Social History: Lives in [place]. Past smoking history, none now. No alcohol [...] wishes to sc hedule. Jose Olivia MD Inspector Printed Circuit Boards Facial Plastic and Reconstructive Surgery Department of Otolaryngology/Head and Neck Surgery [facility] Email - [email or web address] documented in this encounter Plan of Treatment Not on filedocumented as of this encounter Visit Diagnoses + + | Diagnosis | + + | Nasal septal defect - Primary Other diseases of nasal cavity and sinuses | + + documented in this encounter"
--- OUTSIDE RECORDS SUMMARY | ~2019-07-09 | XMS | Encounter Summary ---
Demographics + + + | Address | [address] | | | [place] [address] | + + + | Home Phone [...] | [facility] | | | and Eduardoana | + + + | Organization | [facility] | | | and Eduardoana | + + + | Address | Unknown | + + + | Phone | Unavailable | + + + Support + + + + + | Name | Relationship | Address | Phone | + + + + + | Poncho Oquendo | ECON | [address] | | | | | [facility] [place] | | | | | [address] | | + + + + + | Marta Upton | ECON | [place] | | | | | [address] | | + + + + + Care Team Providers + +------+ + | Care Swift Tender Name | Role | Phone | [...] 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, | [place]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 | MD [address] | [address], | | | | | (HCC) | [address] | [place] [address] | | | | | Procedures | [place], | Phone: | | | | | [place] | [place] [address] | [phone] | | | | | DIPHENHYDRAM | Phone: | Fax: | | | | | [facility] | [phone] | [phone] | | | | | INJECTIO, [address] | Fax: | | | | | | [place] | [phone] | | | | | | [address] [...] + + | 05/27/ | Hospital | [facility] | Vladimir Robles, | Canceled (Clinic | | 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 | MED CTR CHEMO | MD [address] | and/or Provider | | | | INFUSION [address] [place], | Cancellation) | | | | [place], | [place] [address] | | | | | [place] [address] | [phone] | | | | | [phone] | | | +--------+ + + + [...] | | | | | [place] [address] | | | | | | [phone] | | | | | | | | +--------+---------+ + + + documented as of this encounter Visit Diagnoses Not on filedocumented in this encounter"
--- OUTSIDE RECORDS SUMMARY | ~2019-07-09 | XMS | Encounter Summary ---
Demographics + + + | Address | [address] | | | [place] [address] | + + + | Home Phone [...] Providers + +------+ + | Care Senior Fire Protection Engineer Name | Role | Phone | + +------+ + | Tomasa Wagner | PCP | | + +------+ + Encounter Details +--------+ + + + + | Date | Type | Department | Care Team | Description | +--------+ + + + + | 07/11/ | Abstract | Digestive Health | Tai Stanton, | | | 2012 | | [place] [facility] [address] | [address] | | | | | [address] | [address] | | | | | Mailcode: Center | [place], [place] | | | | | [facility] Health and | [address] | | | | | Healing, Building [address] | [phone] | | | | | [place], [place] | | | | | | [address] | | | | | | [phone] | | | +--------+ + + + [...]
--- OUTSIDE RECORDS SUMMARY | ~2019-07-09 | XMS | Encounter Summary ---
Demographics + + + | Address | [address] | | | [place] [address] | + + + | Home Phone [...] + | Author | [facility] | | | and Eduardoana | + + + | Organization | [facility] | | | and Eduardo[place] | + + + | Address | Unknown | + + + | Phone | Unavailable | + + + Support + + + + + | Name | Relationship | Address | Phone | + + + + + | Poncho Oquendo | ECON | [address] | | | | | [facility] [place] | | | | | [address] | | + + + + + | Marta Upton | ECON | [place] | | | | | [address] | | + + + + + Care Team Providers + +------+ + | Care Manager Administration Name | Role | Phone | + [...] | | renal and | OBED, | [place], [place] | | | | | ureteral | [place] | [address] Phone: | | | | | calculous | [address] | [phone] | | | | | obstruction | Phone: | Fax: | | | | | | [phone] | [phone] | | | | | | Fax: | | | | | | | [phone] | | +--------+--------+ + + + + Encounter Details +--------+---------+ + + + | Date | Type | Department | Care Team | Description | +--------+---------+ + + + | 11/21/ | Office | [facility] | Pedro Green, | Cholangiocarcinoma | | 2019 | Visit | UROLOGY [address] | DO [address] | (HCC) (Primary Dx); | | | | [address] | [place] [address] | Obstruction of left | | | | [place], [place] | [phone] | ureter | | | | [address] | | | | | | [phone] | | | +--------+---------+ + + + [...] encounter Patient Instructions Patient Instructions Kalina Hughes, Line Cook - 11/21/2018 10:30 AM PDTPLAN IMAGING NEED [...] Per Admission Appointment to assure [facility]. Location: [facility] ([address] [place] [address]) Time: The day before surgery someone from the hospital will call you to give you your arriv al time. Be advised, they will call you in the late afternoon or early evening. Please do not contact our office to find out your time of arrival. IF YOU HAVE A INDUSTRIAL TECHNOLOGY TEACHER You MUST receive a cardiac clearance from your culinary art teacher prior to surgery. A pre-admission (registration) appointment [...] IT OFF OR FAX IT TO US ([phone]) AT LEAST 2 WEEKS PRIOR TO SURGERY. MAKE SURE TO IN CLUDE TIME OFF NEEDED/WHEN YOU PLAN TO RETURN TO WORK. documented in this encounter Progress Notes Pedro Green DO - 11/21/2018 10:30 AM PDTFormatting of this note might be different fr om the original. [facility] Primary Care Provider: No Physician [...] well. Her [facility] during a septic episode. Her last [...] STENT; Surgeon: Pedro Green DO; Location: [facility]; Service: Urology; Laterality: Left; [...] 2019 | Visit | | DO [address] | | | | | | [place] [address] | | | | | | [phone] | | | | | | | | +--------+---------+ + + + documented as of this encounter Visit Diagnoses + + | Diagnosis | + + | Cholangiocarcinoma (HCC) - Primary Malignant neoplasm of intrahepatic bile ducts | + + | Obstruction of left ureter | + + documented in this encounter"
--- OUTSIDE RECORDS SUMMARY | ~2019-07-09 | XMS | Encounter Summary ---
Demographics + + + | Address | [address] | | | [place] [address] | + + + | Home Phone [...] Providers + +------+ + | Care Child Daycare Worker Name | Role | Phone | [...] [address] | | | | | | [place], [place] | | | | | | [address] | | | +--------+ + + + [...]
--- OUTSIDE RECORDS SUMMARY | ~2019-07-09 | XMS | Encounter Summary ---
Demographics + + + | Address | [address] | | | [place] [address] | + + + | Home Phone [...] Author | [facility] | | | and Eduardoana | + + + | Organization | [facility] | | | and Eduardoana | + + + | Address | Unknown | + + + | Phone | Unavailable | + + + Support + + + + + | Name | Relationship | Address | Phone | + + + + + | Poncho Oquendo | ECON | [address] | | | | | [place] | | | | | [address] | | + + + + + | Marta Upton | ECON | [place] | | | | | [address] | | + + + + + Care Team Providers + +------+ + | Care Christmas Tree Grower Name | Role | Phone | + [...] | | | ONCOLOGY CLINIC [address] | [facility] | | | | | [address] [facility] | [place] [address] | | | | | [place] [address] | [phone] | | | | | [phone] | | | +--------+ + + + [...] | | | [facility] [address] | | | | | | [phone] | | | | | | | | +--------+---------+ + + + documented as of this encounter Visit Diagnoses Not on filedocumented in this encounter"
--- OUTSIDE RECORDS SUMMARY | ~2019-07-09 | XMS | Encounter Summary ---
Demographics + + + | Address | [address] | | | [place] [address] | + + + | Home Phone [...] Team Providers + +------+ + | Care Mines Inspector Name | Role | Phone | [...] | | | | Mailcode: Center | [place], [place] | | | | | for Health and | [address] | | | | | Healing, Building [address] | [phone] | | | | | [place], [place] | | | | | | [address] | | | | | | [phone] | | | +--------+ + + + [...]
--- OUTSIDE RECORDS SUMMARY | ~2019-07-09 | XMS | Encounter Summary ---
Demographics + + + | Address | [address] | | | [place] [address] | + + + | Home Phone [...] + | Author | [facility] | | | and Eduardoana | + + + | Organization | [facility] | | | and Eduardoana | + + + | Address | Unknown | + + + | Phone | Unavailable | + + + Support + + + + + | Name | Relationship | Address | Phone | + + + + + | Poncho Oquendo | ECON | [address] | | | | | [place] | | | | | [address] | | + + + + + | Marta Upton | ECON | [place] | | | | | [address] | | + + + + + Care Team Providers + +------+ + | Care Level Vial Setter Name | Role | Phone | [...] WALL | | | | | [address] [place] | [place] [address] | | | | | [place] [address] | [phone] | | | | | [phone] | | | +--------+ + + + [...] THOMASTAI | | | | | | [place] [address] | | | | | | [phone] | | | | | | | | +--------+---------+ + + + documented as of this encounter Visit Diagnoses + + | Diagnosis | + + | Gallbladder cancer, 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
--- OUTSIDE RECORDS SUMMARY | ~2019-07-09 | XMS | Encounter Summary ---
Demographics + + + | Address | [address] | | | [place] [address] | + + + | Home Phone [...] Team Providers + +------+ + | Care Yoga Coordinator Name | Role | Phone | [...] Visit | Medicine Clinic at | A, ADDRESS CHANGE CLERK [address] | (Primary Dx) | | | | [facility] 4th Floor [address] | | | | | [address] | [place], [place] | | | | | Mailcode: CH4S | [address] | | | | | [facility] | | | | | | and Healing, | | | | | | Building 1,4th Floor | | | | | | [place], [place] | | | | | | [address] | | | | | | [phone] | | | +--------+---------+ + + + [...]
--- OUTSIDE RECORDS SUMMARY | ~2019-07-09 | XMS | Encounter Summary ---
Demographics + + + | Address | [address] | | | [place] [address] | + + + | Home Phone [...] | Author | [facility] | | | and Eduardoana | + + + | Organization | [facility] | | | and Eduardoana | + + + | Address | Unknown | + + + | Phone | Unavailable | + + + Support + + + + + | Name | Relationship | Address | Phone | + + + + + | Poncho Oquendo | ECON | [address] | | | | | [place] | | | | | [address] | | + + + + + | Marta Upton | ECON | [place] | | | | | [address] | | + + + + + Care Team Providers + +------+ + | Care Truck And Transport Mechanic Name | Role | Phone | [...] WALL | | | | | [address] | [place] [address] | | | | | [place] [address] | [phone] | | | | | [phone] | | | +--------+ + + + [...] THOMASTAI | | | | | | [place] [address] | | | | | | [phone] | | | | | | | | +--------+---------+ + + + documented as of this encounter Visit Diagnoses + + | Diagnosis | + + | Gallbladder cancer, 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
--- OUTSIDE RECORDS SUMMARY | ~2019-07-09 | XMS | Encounter Summary ---
Demographics + + + | Address | [address] | | | [place] [address] | + + + | Home Phone [...] Providers + +------+ + | Care Clinical Researcher Name | Role | Phone | + [...] + + | 06/06/ | Hospital | [facility] [address] | Miguel Seymour, | | | 2015 - | Encounter | [address] | [address] | | | | | [place], [place] | [address] | | | 06/09/ | | [address] | [place], [place] | | | 2014 | | [phone] | [address] | | | | | | [phone] | | | | | | | [...] DISCHARGE SUMMARY Author: Roger Guadalupe MD PGY1 LUMP MAKER Attending Physician: Dr. Henderson Admission Date: 06/06/2014 [...] to Get Your Medications You need to turkey picker these prescriptions. We sent some of them to a specific pharmacy. Go t o these places to get your medications. [place] [facility] - enoxaparin 40 mg/0.4 mL Syrg [address] [facility] [address] Hours: 8AM-9PM Mon-Fri; 9-5:30PM Sat-Sun You may [...] To contact your provider, please call the [facility] clinic at [phone] during daytime hours. During evening or weekend hours, please call the [facility] paging felled seam operator chainstitch at [phone] and ask for the Gyroscopic Instrument Tester Oncology staff on-call. Reasons to call the [...] stable Discharging Physician: Roger Guadalupe MD PGY1 LUMP MAKER Service Pager: [phone] Attending Physician: Dr. Henderson I saw and [...] assessment and plan. Roger Guadalupe MD PGY1 LUMP MAKER Service Pager: [phone] I saw and evaluated the patient. I [...] assistance. Primary service notified. RAGHU DALY MD [facility] [address] [facility], 4th Floor Mail Code: CH4P [place], [place] [address] Raghu Antony MD - 06/08/2014 [...] and recommendations with primary care team provider nurse obgyn/oncology. RAGHU DALY MD BILLING INFORMATION [facility] DEPARTMENT: [id number] Place of Service:- Inpatient Date of Service: 06/08/2014 CSN: [id number] Suggested Modifier: None Suggested CPT: 60382 - Daily mgmt epidural/subarachnoid drug administration Prolonged [...] assessment and plan. Roger Guadalupe MD PGY1 LUMP MAKER Service Pager: [phone] I saw and evaluated the patient. I [...] separate note in EPIC). RAGHU DALY MD [facility] [address] [facility], 4th Floor Mail Code: [address] [address] alika, Raghu Coello MD - [...] care team provider . RAGHU DALY MD [facility] [address] [facility], 4th Floor Mail Code: CH4P [place], [place] [id number] BILLING INFORMATION [facility] DEPARTMENT: [id number] Place of Service:- Inpatient Date of Service: 06/07/2014 CSN: [id number] Suggested Modifier: GC - Resident Involved Suggested CPT: 91567 - Daily mgmt epidural/subarachnoid drug administration Prolonged [...] discomfort on there left side. No flatus. Hcery in place. Hasn't been OOB. Had some [...] this note might be different from the [facility] GYNECOLOGY ONCOLOGY INPATIENT PROGRESS NOTE Hospital [...] | Abdominal or | | | LAPAROSCOPY (BRANCH LIBRARY CLERK | ve | 7:27 AM | [...] + +--------+ + + + | NON BRANCH LIBRARY CLERK CYTOLOGY | Routin | 06/06/2014 | [...] | + + + + + | [facility] | [address] | [place] [address] | | | SERVICES, CORE | PARK [...] + + + + + | [facility] | [address] | [place] [address] | | | SERVICES, CORE | NEAL [...] the MDRD equation recommended by the | [facility] | | National Kidney Disease Education [...] | + + + + + | [facility] | [address] | [place] [address] | | | SERVICES, CORE | PARK [...] GWEN GARCIA | [address] | [place] [address] | | | SAM ALONSO | PARK [...] | + + + + + | [facility] | [address] | [place] [address] | | | SERVICES, CORE | PARK [...] + + + + + | [facility] | [address] | [place] [address] | | | SERVICES, CORE | [address] | | | + + + + + OPERATION RECORD (06/07/2014 8:30 AM PDT) + + | Transcriptions | + + | Miguel Seymour MD - 06/06/2014 12:48 PM PDT Date of Service: 06/06/2014 | | Attending Surgeon: Miguel Seymour MD Wide Area Network Systems Administrator(s): | | Poncho Arriola MD. Anesthesia: General [...] 06/06/2014 11:52:24DT: 06/06/2014 12:48:01Job #: | | [id number] DEPARTMENT: [id number] BRANCH LIBRARY CLERK ONC KPlace of Service: - | | IPDate of Service: 06/07/2014 : [id number] | | Modifier: NoneSuggested CPT: NoneSuggested Procedure [...] | + + + + + | [facility] | [address] | [place] [address] | | | SERVICES, CORE | NEAL [...] | + + + + + | [facility] | [address] | [place] [address] | | | SERVICES, CORE | PARK [...] + + + + + | [facility] | [address] | [place] [address] | | | GAVIN, SAM | NEAL [...] [facility] | [address] | [place] [address] | | | SERVICES, CORE | PARK [...] + + + + + | [facility] | [address] | [place] [address] | | | SERVICES, CORE | [address] | | | + + + + + NON BRANCH LIBRARY CLERK CYTOLOGY (06/06/2014) + + + + + + | Component | Value | Ref Range | Performed | Pathologist | | | | | At | Signature | + + + + + + | NON-BRANCH LIBRARY CLERK | SOURCE OF SPECIMEN:A | | [...] San | | | | | | CT(ASCP)Balance Screwhead Polisher | | | | | | Electronically [...] [facility] | [address] | [place] [address] | | | PATHOLOGY | [address] [...] | | | | | | corresponding [id number] | | | | | | B: [...] bed | | | | | | ([id number], slides E3-4). | | | | | [...] necessary | | | | | | [facility] emergency department medical | | | | | | [...] | | | | | | s/pchemoXRT ([id number], | | | | | | [id number]); now with | | | | | [...] | | | | | | | Manager Of Environmental Services | | | | | | sections [...] identified. | | | | | | Manager Of Environmental Services | | | | | | sections [...] residueB3-6, | | | | | | admissions representative sections | | | | | | of #1 external | | | | | | excrescenceB7-8, #2 | | | | | | external | | | | | | excrescenceB9-10, entire | | | | | | #3 external | | | | | | [id number], | | | | | | admissions representative sections | | | | | | of del rio-brown | | | | | | excrescences from inner | | | | | | cyst tzoajzqvskX30-32, | | | | | | additional sections of | | | | | | [id number], admissions representative | | | | | | [...] endomyometriumD5, | | | | | | admissions representative sections | | | | | | of right ovaryD6-9, | | | | | | admissions representative sections | | | | | | of external ovarian | | | | | | [id number], | | | | | | admissions representative sections | | | | | [...] [facility] | [address] | [place] [address] | | | PATHOLOGY | [address] [...]
--- OUTSIDE RECORDS SUMMARY | ~2019-07-09 | XMS | Encounter Summary ---
Demographics + + + | Address | [address] | | | [place] [address] | + + + | Home Phone | | + + + | Preferred Language | Unknown | + + + | Marital Status | | + + + | Christian Affiliation | Unknown | + + + | Race | Unknown | + + + | Ethnic Group | Unknown | + + + Author + + + | Author | [facility] | | | and Eduardoana | + + + | Organization | [facility] | | | and Eduardoana | + + + | Address | Unknown | + + + | Phone | Unavailable | + + + Support + + + + + | Name | Relationship | Address | Phone | + + + + + | Poncho Oquendo | ECON | [address] | | | | | [place] | | | | | [address] | | + + + + + | Marta Upton | ECON | [place] | | | | | [address] | | + + + + + Care Team Providers + +------+ + | Care Private Duty Aide Name | Role | Phone | [...] | | | | | | [place] [id number] | | | | | | [phone] | | | +--------+ + + + [...] | | | | | [place] [address] | | | | | | [phone] | | | | | | | | +--------+---------+ + + + documented as of this encounter Visit Diagnoses Not on filedocumented in this encounter"
--- OUTSIDE RECORDS SUMMARY | ~2019-07-09 | XMS | Encounter Summary ---
Demographics + + + | Address | [address] | | | [place] [address] | + + + | Home Phone [...] Team Providers + +------+ + | Care Goat Driver Name | Role | Phone | + +------+ + | Tomasa Wagner | PCP | | + +------+ + Encounter Details +--------+ + + + + | Date | Type | Department | Care Team | Description | +--------+ + + + + | 09/13/ | Abstract | [facility]ive [facility] | Tai Stanton, | | | 2012 | | [facility] [address] | [address] | | | | | [address] | [address] | | | | | Mailcode: Center | [place], [place] | | | | | [facility] Health and | [address] | | | | | Healing, Building 2 | [phone] | | | | | [place], [place] | | | | | | [address] | | | | | | [phone] | | | +--------+ + + + [...]
--- OUTSIDE RECORDS SUMMARY | ~2019-07-09 | XMS | Encounter Summary ---
Demographics + + + | Address | [address] | | | [place] [address] | + + + | Home Phone [...] Providers + +------+ + | Care Communications Lead Name | Role | Phone | [...] Pharmacy | | | | | | [address] | | | | | | Loop [place], [place] | | | | | | [address] | | | | | | [phone] | | | +--------+ + + + [...]
--- OUTSIDE RECORDS SUMMARY | ~2019-07-09 | XMS | Encounter Summary ---
Demographics + + + | Address | [address] | | | [place] [address] | + + + | Home Phone [...] Author | [facility] | | | and Eduardoana | + + + | Organization | [facility] | | | and Eduardoana | + + + | Address | Unknown | + + + | Phone | Unavailable | + + + Support + + + + + | Name | Relationship | Address | Phone | + + + + + | Poncho Oquendo | ECON | [address] | | | | | [place] | | | | | [address] | | + + + + + | Marta Upton | ECON | [place] | | | | | [address] | | + + + + + Care Team Providers + +------+ + | Care Auto Radiator Mechanic Name | Role | Phone | [...] + + | 07/03/ | Telephone | [facility] | Reinaldo, | Medication Question | | 2019 | | [facility] CTR [facility] | Epifanio Soler MD [address] | | | | | ONCOLOGY CLINIC [address] | [facility] | | | | | [address] [facility] | [place] [address] | | | | | [place] [address] | [phone] | | | | | [phone] | | | +--------+ + + + [...] [address] | | | | | | [place] [address] | | | | | | [phone] | | | | | | | | +--------+---------+ + + + documented as of this encounter Visit Diagnoses Not on filedocumented in this encounter"
--- OUTSIDE RECORDS SUMMARY | ~2019-07-09 | XMS | Encounter Summary ---
Demographics + + + | Address | [address] | | | [place] [address] | + + + | Home Phone [...] Team Providers + +------+ + | Care Grade Recorder Name | Role | Phone | + [...] | | Epic Dept | [facility] [address] | | | | | [...] | | | | | | | [place], [place] | | | | | | | [address] | | | | | | | Phone: | | | | | | | [phone] | | | | | | | Fax: | | | | | | | [phone] | +--------+--------+ + + + + Encounter Details +--------+---------+ + + + | Date | Type | Department | Care Team | Description | +--------+---------+ + + + | 03/07/ | Office | [facility] | Aamir Lau, | Chronic Ethmoidal | | 2008 | Visit | [facility] [address] | MD [address] | Sinusitis | | | | [address] | [place], [place] | | | | | Mailcode: KAREEN | [address] | | | | | [facility] | [phone] | | | | | and Brittny, | | | | | | Building | | | | | | Floor [place], [place] | | | | | | [address] | | | | | | [phone] | | | +--------+---------+ + + + [...] 47 y.o. female who presents to the [facility] for foll ow up of S/P Sinus Surgery (septoplasty) with Dr. Benedict in [place]. Current symptoms inc lude nasal congestion. Symptoms [...] | + + +--------+ + + | [facility] | Procedures | Routin | Chronic Ethmoidal | Ordered: 03/07/2008 | | ENDOSCOPY,DX | | e | Sinusitis | | + + +--------+ + + documented as of this encounter Visit Diagnoses + + | Diagnosis | + + | Chronic ethmoidal sinusitis | + + documented in this encounter"
--- OUTSIDE RECORDS SUMMARY | ~2019-07-09 | XMS | Encounter Summary ---
Demographics + + + | Address | [address] | | | [place] [address] | + + + | Home Phone [...] | Author | [facility] | | | and Eduardoana | + + + | Organization | [facility] | | | and Eduardoana | + + + | Address | Unknown | + + + | Phone | Unavailable | + + + Support + + + + + | Name | Relationship | Address | Phone | + + + + + | Poncho Oquendo | ECON | [address] | | | | | [place] | | | | | [address] | | + + + + + | Marta Upton | ECON | [place] | | | | | [address] | | + + + + + Care Team Providers + +------+ + | Care Rag Sorter And Cutter Name | Role | Phone | [...] | | | | | Procedures | [address] | [place] | | | | | [place] OFFICE | Phone: | [address] Phone: | | | | | OUTPATIENT | [phone] | [phone] | | | | | VISIT 25 | Fax: | Fax: | | | | | MINUTES | [phone] | [phone] | +--------+--------+ + + + + Encounter Details +--------+ + + + + | Date | Type | Department | Care Team | Description | +--------+ + + + + | 12/17/ | Hospital | [facility] | Reinaldo, | Gallbladder cancer, | | 2015 | Encounter | [facility] | Chad Soler MD [address] | carcinoma (HCC) | | | | ONCOLOGY CLINIC [address] | [address] | (Primary Dx) | | | | [address] | [place] [address] | | | | | [place] [address] | [phone] | | | | | [phone] | | | +--------+ + + + [...] from the original. Hematology/Oncology Progress Note [facility] Pt. Name/Age/: Aura Upton 54 y.o. 1960 Med. Record Number: [id number] Date of admission: 12/17/2014 Identifying Statement: Aura Upton is a 54 y.o. female from [address] [place] [address] with Recurrent Cholangiocarcinoma. The patient chart and [...] Brandon Garcia March 29, 2012, pathological specimen [id number], analyzed by Dr. Bowers of [facility] and was notable for a poorly-differentiated adenoc arcinoma of the gallbladder. Liver biopsy demonstrated mild portal inflammation. 2. On April 28, 2012, she successfully underwent an R0 resection by Dr. Tai Stanton at [facility], pathological specimen [id number] was notable for the absence of any residual carcinoma within the gallbladder bed. However, 2/8 regional lym ph nodes contained regionally metastatic disease. 3. Consultation by Dr. Elva Grey of the [facility] on May returned the recommendation for adjuvant chemoradiation therapy following [id number] as follows: Capecitabine at 750 mg/m sq [...] staging by Dr. Oziel Casillas of the [facility]. Pathological analysis was notable for [...] 7. Consultation with Dr. Elva Grey the [facility] in June 26, 2014 who recommended additional chemotherapy was cisplatin at 75 mg meter squared on day 1 a nd gemcitabine 1250 mg per meter squared on day one and day 8 of acute 21 day cycle for 6-8 cycles. A second opinion was obtained by Dr. Richie Thayer of the [facility] iance who returned the recommendation [...] recommendations of Dr. Richie Thayer of the [facility] with gemcitabine at 1000 mg per meter squared on day one and day 8 w ith cisplatin 25 mg meter squared on day one and day 8 of a Q 21 day cycle beginning on July 26, 2014 complicated by grade 3 neutropenia and grade [address]. 10[address] scan of the chest, abdomen and pelvis that [facility] on September 16, 2014 demonstrated no radiographic evidence of disease. 11. Completion of 6 cycles of cisplatin/gemcitabine chemotherapy at the [facility] in [place], [place] on November 29, 2014. 12. Repeat CT scan of the chest, abdomen and pelvis that [facility] on December 17, 2014 demonstrated [...] will see Dr. Richie Thayer at the [facility]. Review of Systems: Constitutional: Reports that her [...] Steven Figueroa., Birdie Burns., Avery, TLuis Eduardo., José Miguel Ramirez., Viraj, [...] this chart may have been created with [employer] voice recognition software. Occasi onal wrong-word or [...] 2019 | Visit | | DO [address] | | | | | | [place] [address] | | | | | | [phone] | | | | | | | [...]
--- OUTSIDE RECORDS SUMMARY | ~2019-07-09 | XMS | Encounter Summary ---
Demographics + + + | Address | [address] | | | [place] [address] | + + + | Home Phone [...] Author | [facility] | | | and Eduardoana | + + + | Organization | [facility] | | | and Eduardoana | + + + | Address | Unknown | + + + | Phone | Unavailable | + + + Support + + + + + | Name | Relationship | Address | Phone | + + + + + | Poncho Oquendo | ECON | [address] | | | | | [place] | | | | | [address] | | + + + + + | Marta Upton | ECON | [place] | | | | | [address] | | + + + + + Care Team Providers + +------+ + | Care Merchandising Representative Name | Role | Phone | [...] cancer, | | 2017 | | [facility] | Epifanio Soler MD [address] | carcinoma (HCC) | | | | ONCOLOGY CLINIC [address] | [address] | | | | | [address] | [place] [address] | | | | | [place] [address] | [phone] | | | | | [phone] | | | +--------+ + + + [...] [address] | | | | | | [place] [address] | | | | | | [phone] | | | | | | | | +--------+---------+ + + + documented as of this encounter Visit Diagnoses + + | Diagnosis | + + | Gallbladder cancer, carcinoma (HCC) Malignant neoplasm of gallbladder | + + documented in this encounter"
--- OUTSIDE RECORDS SUMMARY | ~2019-07-09 | XMS | Encounter Summary ---
Demographics + + + | Address | [address] | | | [place] [address] | + + + | Home Phone [...] Team Providers + +------+ + | Care Fur Ironer Name | Role | Phone | + [...] | | | | | | | [place], [place] | | | | | | | [address] | | | | | | | Phone: | | | | | | | [phone] | | | | | | | Fax: | | | | | | | [phone] | +--------+--------+ + + + + Encounter Details +--------+---------+ + + + | Date | Type | Department | Care Team | Description | +--------+---------+ + + + | 05/31/ | Office | Digestive Health | Tai Stanton, | Encounter for wound | | 2012 | Visit | Center at [facility] 3485 | [address] | care (Primary Dx) | | | | [address] | [address] | | | | | Mailcode: [place] | [place], [place] | | | | | [facility] and | [address] | | | | | [facility] 2 | [phone] | | | | | [place], [place] | | | | | | [address] | | | | | | [phone] | | | +--------+---------+ + + + [...] the resident s note. Tai Stanton M.D. [employer] ([facility]) Professor and Vice-Herbarium Worker of Surgery The Shahriar Nava Chair for Pancreatic Disease Research Pancreatic/ HepatoBiliary and Foregut Working Groups Office email: [email or web address] Rukhsana Land MD - 05/31/2012 2:07 PM PDT [facility] Department of Surgery Blue Surgery [...] 51 y.o. female patient [facility] her wound [...] Pathology: Original path: Materials Received: Referring Institution: [facility] [employer] [facility], [place] [address] Outside Accession Number: [id number] Sample Collection Date: 03/29/2012 Sublabeled H&E IHC [...] plan. Rukhsana Tesfaye MD Surgery, R1 Pager: [phone] documented in this e ncounter Plan of Treatment Not on filedocumented as of this encounter Visit Diagnoses + + | Diagnosis | + + | Encounter for wound care - Primary Encounter for other specified aftercare | + + documented in this encounter
--- OUTSIDE RECORDS SUMMARY | ~2019-07-09 | XMS | Encounter Summary ---
Demographics + + + | Address | [address] | | | [place] [address] | + + + | Home Phone [...] Team Providers + +------+ + | Care Knuckle Bender Name | Role | Phone | [...] | | | | Mailcode: Center | [place], [place] | | | | | for Health and | [address] | | | | | Healing, Building 2 | [phone] | | | | | [place], [place] | | | | | | [address] | | | | | | [phone] | | | +--------+ + + + [...]
--- OUTSIDE RECORDS SUMMARY | ~2019-07-09 | XMS | Encounter Summary ---
Demographics + + + | Address | [address] | | | [place] [address] | + + + | Home Phone [...] Team Providers + +------+ + | Care Organizational Research Consultant Name | Role | Phone | + +------+ + | Tomasa Wagner | PCP | | + +------+ + Reason for Visit + + + | Reason | Comments | + + + | Medical Records | [facility] - OUTSIDE RECORDS 03/18/14 OV Summary | | Review | | + + + Encounter Details +--------+ + + + + | Date | Type | Department | Care Team | Description | +--------+ + + + + | 03/22/ | Abstract | Digestive Health | Tai Stanton, | Medical Records | | 2015 | | [facility] | [address] [facility] | Review ([facility] - | | | | [address] | [address] | OUTSIDE RECORDS | | | | Mailcode: [place] | [place], [place] | 03/18/14 OV Summary) | | | | for Health and | [address] | | | | | [facility], [facility] 2 | [phone] | | | | | [place], [place] | | | | | | [address] | | | | | | [phone] | | | +--------+ + + + [...]
--- OUTSIDE RECORDS SUMMARY | ~2019-07-09 | XMS | Encounter Summary ---
Demographics + + + | Address | [address] | | | [place] [address] | + + + | Home Phone [...] Providers + +------+ + | Care Manager Fiber Name | Role | Phone | + [...] Mailcode: | | | | | | [place], [place] | [facility] | | | | | | [address] | for Health | | | | | | Phone: | and Healing, | | | | | | [phone] | Building 1, | | | | | | Fax: | 7th Floor | | | | | | [phone] | [place], [place] | | | | | | | [address] | | | | | | | Phone: | | | | | | | [phone] | | | | | | | Fax: | | | | | | | [phone] | +--------+--------+ + + + + Encounter Details +--------+---------+ + + + | Date | Type | Department | Care Team | Description | +--------+---------+ + + + | 05/17/ | Office | Hematology/Medical | Elva Grey, | Gallbladder cancer | | 2013 | Visit | Oncology at [facility] | [address] | (HCC) (Primary Dx); | | | | [address] | [address] | Post-operative pain | | | | Mailcode: CH7 | [place] [address] | | | | | [facility] | [phone] | | | | | and Healing, | | | | | | Building 1, | | | | | | Floor [place], [place] | | | | | | [address] | | | | | | [phone] | | | +--------+---------+ + + + [...] History Narrative Pt has SO. Lives in [facility]. 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 [...] and RT based on nomograms developed at [facility] based on SEER database. As there is no standard adjuvant regimen for this disease we have followed the regimen receloreto fitzgerald studied in the completed S0809 trial. This is [place]/Cap for 4 cycles, then restaging and chemoradiation with Cape as below: Capecitabine 750mg/m2 BID days 1-14 Gemcitabine 1000mg/m2 IV days 1,8 Every 21 days for 4 cycles Followed by: Capecitabine 665mg/m2 BID concurrent with RT She is currently only 3 weeks out from surgery and not yet ready for chemotherapy. She is from the [facility] and would like to get therapy closer to home. She states that she l oves closest to the [facility] and would like a referral [...]
--- OUTSIDE RECORDS SUMMARY | ~2019-07-09 | XMS | Encounter Summary ---
Demographics + + + | Address | [address] | | | [place] [address] | [...] + | Author | [facility] | | | and Eduardo[place] | + + + | Organization | [facility] | | | and Eduardoana | + + + | Address | Unknown | + + + | Phone | Unavailable | + + + Support + + + + + | Name | Relationship | Address | Phone | + + + + + | Poncho Oquendo | ECON | [address] | | | | | [place] | | | | | [address] | | + + + + + | Marta Upton | ECON | [place] | | | | | [address] | | + + + + + Care Team Providers + +------+ + | Care Home Day Care Provider Name | Role | Phone | + +------+ + | Valeriy Carmona DO | PCP | | + +------+ + Encounter Details +--------+ + + + + | Date | Type | Department | Care Team | Description | +--------+ + + + + | 07/30/ | Orders Only | [facility] | Marcelina Johnson, | | | 2016 | | MED CTR CHEMO | RN | | | | | INFUSION [address] | | | | | | [place], | | | | | | [place] [address] | | | | | | [phone] | | | +--------+ + + + [...] | | | | | [place] [address] | | | | | | [phone] | | | | | | | | +--------+---------+ + + + documented as of this encounter Visit Diagnoses Not on filedocumented in this encounter"
--- OUTSIDE RECORDS SUMMARY | ~2019-07-09 | XMS | Encounter Summary ---
Demographics + + + | Address | [address] | | | [place] [address] | + + + | Home Phone [...] Author | [facility] | | | and [place]ardo[place] | + + + | Organization | [facility] | | | and [place] | + + + | Address | Unknown | + + + | Phone | Unavailable | + + + Support + + + + + | Name | Relationship | Address | Phone | + + + + + | Poncho Oquendo | ECON | [address] | | | | | [place] | | | | | [address] | | + + + + + | Marta Upton | ECON | [place] | | | | | [address] | | + + + + + Care Team Providers + +------+ + | Care Barrel Raiser Helper Name | Role | Phone | [...] | | Carcinoma | Reinaldo, | [address] | | | | | of gall | Epifanio C, | [place], | | | | | bladder | MD [address] | [place] [address] | | | | | (HCC) | [address] | Phone: | | | | | Procedures | [place], | [phone] | | | | | [place] Chest | [place] [address] | Fax: | | | | | Abdomen | Phone: | [phone] | | | | | Pelvis w | [phone] | | | | | | Contrast | Fax: | | | | | | | [phone] | | +--------+--------+ + + + + [...] (Primary Dx) | | | | [address] [place] | [place] [address] | | | | | [place] [address] | [phone] | | | | | [phone] | | | +--------+ + + + [...] [address] | | | | | | [place] [address] | | | | | | [phone] | | | | | | | [...] intravenous administration of 100 mL | | [id number] contrast. Oral contrast was administered. Multiplanar reformatted [...]
--- OUTSIDE RECORDS SUMMARY | ~2019-07-09 | XMS | Encounter Summary ---
Demographics + + + | Address | [address] | | | [place] [address] | + + + | Home Phone [...] Author + + + | Author | [facility] | + + + | Organization | [facility] | + + + | [...] Team Providers + +------+ + | Care Merchant Mill Utility Worker Name | Role | Phone | [...] | Scheduling; | | 2014 | | [facility] [facility] 3485 | [address] [facility] [address] [facility] | Returning Phone Call | | | | [address] | [facility] | | | | | Mailcode: [place] | [place], [place] | | | | | [facility] and | [address] | | | | | [place] [address] | [phone] | | | | | [place], [place] | | | | | | [address] | | | | | | [phone] | | | +--------+ + + + [...]
--- OUTSIDE RECORDS SUMMARY | ~2019-07-09 | XMS | Encounter Summary ---
Demographics + + + | Address | [address] | | | [place] [address] | + + + | Home Phone [...] [facility] | | | and [place]ardo[place] | + + + | Organization | [facility] | | | and [place]ardo[place] | + + + | Address | Unknown | + + + | Phone | Unavailable | + + + Support + + + + + | Name | Relationship | Address | Phone | + + + + + | Poncho Oquendo | ECON | [address] | | | | | [facility] [place] | | | | | [address] | | + + + + + | Marta Upton | ECON | [place], [place] | | | | | [address] | | + + + + + Care Team Providers + +------+ + | Care Navy Material Inspector Name | Role | Phone | [...] [place] | | | | | [address] [place] | [place] [address] | | | | | [place] [address] | [phone] | | | | | [phone] | | | +--------+ + + + [...] [address] | | | | | | [place] [address] | | | | | | [phone] | | | | | | | | +--------+---------+ + + + documented as of this encounter Visit Diagnoses Not on filedocumented in this encounter"
--- OUTSIDE RECORDS SUMMARY | ~2019-07-09 | XMS | Encounter Summary ---
Demographics + + + | Address | [address] | | | [place] [address] | + + + | Home Phone [...] | Author | [facility] | | | and Eduardoana | + + + | Organization | [facility] | | | and Eduardoana | + + + | Address | Unknown | + + + | Phone | Unavailable | + + + Support + + + + + | Name | Relationship | Address | Phone | + + + + + | Poncho Oquendo | ECON | [address] | | | | | [place] | | | | | [address] | | + + + + + | Marta Upton | ECON | [place] | | | | | [address] | | + + + + + Care Team Providers + +------+ + | Care Washer Hand Name | Role | Phone | [...] + + | 09/02/ | Telephone | [facility] | Reinaldo, | Other | | 2014 | | MED CTR MEDICAL | Epifanio Soler MD [address] | | | | | [facility] CL[facility] [address] | [facility] | | | | | [facility] | [place] [address] | | | | | [place] [address] | [phone] | | | | | [phone] | | | +--------+ + + + [...] | | | | | [place] [address] | | | | | | [phone] | | | | | | | | +--------+---------+ + + + documented as of this encounter Visit Diagnoses Not on filedocumented in this encounter"
--- OUTSIDE RECORDS SUMMARY | ~2019-07-09 | XMS | Encounter Summary ---
Demographics + + + | Address | [address] | | | [place] [address] | + + + | Home Phone [...] | + + +---------+ + | Poncho Oquedno | ECON | Unknown | | + + +---------+ + | Elsy Upton | ECON | Unknown | | + + +---------+ + Care Team Providers + +------+ + | Care School Plant Consultant Name | Role | Phone | [...] & | Diagnoses | [facility] | [facility] | | | | Gynecology | Complex | Epic Dept | [address] | | | | | Cystic Mass, | | [address] | | | | | elevated | | [place] | | | | | [address] per | | Alexis, 7th | | | | | appt notes | | floor | | | | | | | [place], [place] | | | | | | | [address] | | | | | | | Phone: | | | | | | | [phone] | | | | | | | Fax: | | | | | | | [phone] | +--------+--------+ + + + + Encounter Details +--------+---------+ + + + | Date | Type | Department | Care Team | Description | +--------+---------+ + + + | 07/23/ | Office | [facility] | Miguel Seymour, | 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 | [facility] [place] | [address] | (HCC) (Primary Dx); | | | | Pav[address] | [address] | Pelvic mass; | | | | [address] | [place], [place] | Post-operative pain | | | | Alexis, 7th floor | [address] | | | | | [place], [place] | [phone] | | | | | [address] | | | | | | [phone] | | | +--------+---------+ + + + [...] might be different fr om the original. LITHOGRAPHIC ETCHER ONCOLOGY RETURN VISIT 07/23/2014 TREATMENT DIAGNOSIS: Stage [...] for pelvic recurrence (can be with regular LITHOGRAPHIC ETCHER) 3. Discharge from clinic unless other laminating machine tender oncology needs in future Patient seen and discussed with Dr. Henderson, who agrees with the assessment and plan. Lotus Maher MD VISITING NURSE R4 I saw and evaluated the patient [...]
--- OUTSIDE RECORDS SUMMARY | ~2019-07-09 | XMS | Encounter Summary ---
Demographics + + + | Address | [address] | | | [place] [address] | + + + | Home Phone [...] Team Providers + +------+ + | Care Quarter Doper Name | Role | Phone | + [...] | Center at [facility] [address] | [address] [facility] | | | | | [address] | [address] | | | | | Mailcode: Center | [place], [place] | | | | | [facility] and | [address] | | | | | Healing, Building 2 | [phone] | | | | | [place], [place] | | | | | | [address] | | | | | | [phone] | | | +--------+ + + + [...]
--- OUTSIDE RECORDS SUMMARY | ~2019-07-09 | XMS | Encounter Summary ---
Demographics + + + | Address | [address] | | | [place] [address] | + + + | Home Phone [...] | Author | [facility] | | | and Eduardoana | + + + | Organization | [facility] | | | and Eduardoana | + + + | Address | Unknown | + + + | Phone | Unavailable | + + + Support + + + + + | Name | Relationship | Address | Phone | + + + + + | Poncho Oquendo | ECON | [address] | | | | | [place] | | | | | [address] | | + + + + + | Marta Upton | ECON | [place] | | | | | [address] | | + + + + + Care Team Providers + +------+ + | Care Clinical Psychology Teacher Name | Role | Phone | [...] Required | | Cholangiocar | [address] | Services [address] | | | | | cinoma (HCC) | [place] | [address] | | | | | | [place], [place] | [place], | | | | | | [address] | [place] [address] | | | | | | Phone: | Phone: | | | | | | [phone] | [phone] | | | | | | Fax: | Fax: | | | | | | [phone] | [phone] | +--------+ + + + + + [...] W | | | | | | [address] [place], | | | | | | [place] [address] | | | | | | [phone] | | | +--------+ + + + [...] [address] | | | | | | [place] [address] | | | | | | [phone] | | | | | | | | +--------+---------+ + + + + + +--------+ + + | Name | Type | Priori | Associated Diagnoses | Order Schedule | | | | ty | | | + + +--------+ + + | Ambulatory referral | Outpatient | Routin | Cholangiocarcinoma | Ordered: 07/02/2014 | | to Nutrition | Referral | e | ([facility] | | | Services | | | | | + + +--------+ + + documented as of this encounter Visit Diagnoses + + | Diagnosis | + + | 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
--- OUTSIDE RECORDS SUMMARY | ~2019-07-09 | XMS | Encounter Summary ---
Demographics + + + | Address | [address] | | | [place] [address] | + + + | Home Phone [...] Team Providers + +------+ + | Care Deep Fryer Assembler Name | Role | Phone | [...] Pharmacy | | | | | | [address] | | | | | | Loop [place], [place] | | | | | | [address] | | | | | | [phone] | | | +--------+ + + + [...]
--- OUTSIDE RECORDS SUMMARY | ~2019-07-09 | XMS | Encounter Summary ---
Demographics + + + | Address | [address] | | | [place] [address] | + + + | Home Phone [...] Team Providers + +------+ + | Care Recordak Operator Name | Role | Phone | [...] | | | | | | | [place], [place] | | | | | | | [address] | | | | | | | Phone: | | | | | | | [phone] | | | | | | | Fax: | | | | | | | [phone] | +--------+--------+ + + + + Encounter Details +--------+---------+ + + + | Date | Type | Department | Care Team | Description | +--------+---------+ + + + | 03/07/ | Office | [facility] | Aamir Lau, | Chronic Ethmoidal | | 2008 | Visit | [facility] [address] | MD [address] | Sinusitis | | | | [address] | Center [place], [place] | | | | | Mailcode: KAREEN | [address] | | | | | [facility] | [phone] | | | | | and Brittny, | | | | | | Building | | | | | | Floor [place], [place] | | | | | | [address] | | | | | | [phone] | | | +--------+---------+ + + + [...] documentation. Aamir Lau M.D., M.P.H., F.A.C.S. Director, [facility] Professor and Chief, Rhinology and Sinus Surgery Department of Otolaryngology/Head and Neck Surgery Faustina Olvera MD - 03/07/2008 3:51 PM PST HPI: Aura Upton is a 47 y.o. female who presents to the [facility] for foll ow up of S/P Sinus Surgery (septoplasty) with Dr. Benedict in [place]. Current symptoms inc lude nasal congestion. Symptoms [...] | + + +--------+ + + | AR NASAL | Procedures | Routin | Chronic Ethmoidal | Ordered: 03/07/2008 | | ENDOSCOPY,DX | | e | Sinusitis | | + + +--------+ + + documented as of this encounter Visit Diagnoses + + | Diagnosis | + + | Chronic ethmoidal sinusitis | + + documented in this encounter"
--- OUTSIDE RECORDS SUMMARY | ~2019-07-09 | XMS | Encounter Summary ---
Demographics + + + | Address | [address] | | | [place] [address] | + + + | Home Phone [...] | Author | [facility] | | | and Eduardoana | + + + | Organization | [facility] | | | and Eduardoana | + + + | Address | Unknown | + + + | Phone | Unavailable | + + + Support + + + + + | Name | Relationship | Address | Phone | + + + + + | Poncho Oquendo | ECON | [address] | | | | | [facility], [place] | | | | | [address] | | + + + + + | Marta Upton | ECON | [place], [place] | | | | | [address] | | + + + + + Care Team Providers + +------+ + | Care Paper Cone Machine Tender Name | Role | Phone [...] | PET CT Skull | [place], | [address] | | | | | Base To [place] | [place] [address] | Phone: | | | | | Thigh | | [phone] | | | | | | | Fax: | | | | | | | [phone] | +--------+--------+ + + + + Reason [...] | | Procedures | [address] | [place], [place] | | | | | PET CT Skull | [place], | [address] | | | | | Base To [place] | [place] [address] | Phone: | | | | | Thigh | | [phone] | | | | | | | Fax: | | | | | | | [phone] | +--------+--------+ + + + + Encounter Details +--------+ + + + + | Date | Type | Department | Care Team | Description | +--------+ + + + + | 02/15/ | Hospital | [facility] | Reinaldo, | 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 | Epifanio Soler MD [address] | passages ([facility]) | | | | MEDICINE [address] | [address] | | | | | [address] | [place] [address] | | | | | [place], [place] | [phone] | | | | | [address] | | | | | | [phone] | | | +--------+ + + + [...] [address] | | | | | | [place] [address] | | | | | | [phone] | | | | | | | [...] | | | Signed by: Maycol Urias, Riverbed Technologypender Sign Date/Time: 02/15/2019 | | | 1:37 [...] Testing | 65 - 99 mg/dL | [facility] | | | POC | performed at [facility];8 | | LABORATORY | | | | [facility];[place], [place] | | | | | | [address] | | | | + + + + + + + + | Specimen | + + | | + + + + + + + | Performing | Address | City/State/Zipcode | Phone Number | | Organization | | | | + + + + + | [facility] | [address] | [place] [address] | [phone] | + + + + + documented [...] millicur | | | | Intravenous, ONCE, [facility] 02/15/19 at | | PM PST | ies | | | | 1315, For 1 dose | | | | | | + +--------+ + +------+------+ +---+---+ | | | +---+---+ documented in this encounter"
--- OUTSIDE RECORDS SUMMARY | ~2019-07-09 | XMS | Encounter Summary ---
Demographics + + + | Address | [address] | | | [place] [address] | + + + | Home Phone [...] Team Providers + +------+ + | Care Process Control Board Operator Name | Role | Phone | + +------+ + | Tomasa Wagner | PCP | | + +------+ + Encounter Details +--------+ + + + + | Date | Type | Department | Care Team | Description | +--------+ + + + + | 09/13/ | Abstract | [facility] | Tai Stanton, | | | 2012 | | [place] [facility] [address] | [address] | | | | | [address] | [address] | | | | | Mailcode: Center | [place], [place] | | | | | [facility] and | [address] | | | | | Healing, Building 2 | [phone] | | | | | [place], [place] | | | | | | [address] | | | | | | [phone] | | | +--------+ + + + [...]
--- OUTSIDE RECORDS SUMMARY | ~2019-07-09 | XMS | Encounter Summary ---
Demographics + + + | Address | [address] | | | [place] [address] | + + + | Home Phone [...] | Author | [facility] | | | and Eduardoana | + + + | Organization | [facility] | | | and Eduardoana | + + + | Address | Unknown | + + + | Phone | Unavailable | + + + Support + + + + + | Name | Relationship | Address | Phone | + + + + + | Poncho Oquendo | ECON | [address] | | | | | [place] | | | | | [address] | | + + + + + | Marta Upton | ECON | [place] | | | | | [address] | | + + + + + Care Team Providers + +------+ + | Care Raw Finish Mill Operator Name | Role | Phone | + +------+ + | Valeriy Carmona DO | PCP | | + +------+ + Encounter Details +--------+ + + + + | Date | Type | Department | Care Team | Description | +--------+ + + + + | 07/30/ | Orders Only | [facility] | Marcelina Johnson, | | | 2016 | | MED CTR CHEMO | RN | | | | | INFUSION [address] | | | | | | [place], | | | | | | [place] [address] | | | | | | [phone] | | | +--------+ + + + [...] | | | | | [place] [address] | | | | | | [phone] | | | | | | | | +--------+---------+ + + + documented as of this encounter Visit Diagnoses Not on filedocumented in this encounter"
--- OUTSIDE RECORDS SUMMARY | ~2019-07-09 | XMS | Encounter Summary ---
Demographics + + + | Address | [address] | | | [place] [address] | + + + | Home Phone [...] | Author | [facility] | | | and Eduardoana | + + + | Organization | [facility] | | | and Eduardoana | + + + | Address | Unknown | + + + | Phone | Unavailable | + + + Support + + + + + | Name | Relationship | Address | Phone | + + + + + | Poncho Oquendo | ECON | [address] | | | | | [place] | | | | | [address] | | + + + + + | Marta Upton | ECON | [place] | | | | | [address] | | + + + + + Care Team Providers + +------+ + | Care Theatre Professor Name | Role | Phone | [...] | | | [facility] | [facility] | | | | | [address] [facility] | [place] [address] | | | | | [place] [address] | [phone] | | | | | [phone] | | | +--------+ + + + [...] [address] | | | | | | [place] [address] | | | | | | [phone] | | | | | | | [...]
--- OUTSIDE RECORDS SUMMARY | ~2019-07-09 | XMS | Encounter Summary ---
Demographics + + + | Address | [address] | | | [place] [address] | + + + | Home Phone [...] | | | | | Procedures | [place] | [place] | | | | | [place] | [address] | [address] | | | | | ENT / FACIAL | Phone: | Phone: | | | | | PLASTIC | [phone] | [phone] | | | | | SURGERY | Fax: | Fax: | | | | | | [phone] | [phone] | +--------+--------+ + + + + Reason [...] | y | | Epic Dept | [facility] [address] | | | | | | [...] | | | | | | | [place], [place] | | | | | | | [address] | | | | | | | Phone: | | | | | | | [phone] | | | | | | | Fax: | | | | | | | [phone] | +--------+--------+ + + + + Encounter Details +--------+---------+ + + + | Date | Type | Department | Care Team | Description | +--------+---------+ + + + | 12/27/ | Office | [facility] | Aamir Lau, | Nasal Septal Defect | | 2007 | Visit | Center at [facility] [address] | [address] | (Primary Dx); | | | | [address] | [place], [place] | Chronic Ethmoidal | | | | Mailcode: CH5E | [address] | Sinusitis; Other | | | | [facility] | [phone] | Diseases of Nasal | | | | and Healing, | | Cavity and Sinuses | | | | Building 1, 5th | | | | | | Floor [place], [place] | | | | | | [address] | | | | | | [phone] | | | +--------+---------+ + + + [...] documentation. Aamir Lau M.D., M.P.H., F.A.C.S. Director, [facility] Professor and Chief, Rhinology and [...] ESS and septoplasty by Dr. Benedict in [place]. She reports a prolonged recovery with sign [...] Rfl: No Known Allergies. Social HX: Lives [place], [place] No ETOH, No tobacc (quit several [...] | + + +--------+ + + | [place] NASAL | Procedures | Routin | Chronic [...]
--- OUTSIDE RECORDS SUMMARY | ~2019-07-09 | XMS | Encounter Summary ---
Demographics + + + | Address | [address] | | | [place] [address] | + + + | Home Phone [...] + + | Author | [facility] | | | and Eduardoana | + + + | Organization | [facility] | | | and Eduardoana | + + + | Address | Unknown | + + + | Phone | Unavailable | + + + Support + + + + + | Name | Relationship | Address | Phone | + + + + + | Poncho Oquendo | ECON | [address] | | | | | [place] | | | | | [address] | | + + + + + | Marta Upton | ECON | [place] | | | | | [address] | | + + + + + Care Team Providers + +------+ + | Care Intermediate Accountant Name | Role | Phone | [...] (Primary Dx) | | | | [address] | [place] [address] | | | | | [place] [address] | [phone] | | | | | [phone] | | | +--------+ + + + [...] | 09/17/ | Office | Urology | ePdro Green, | | | 2019 | Visit | | DO Vaishali [address] | | | | | | [place] [address] | | | | | | [phone] | | | | | | | | +--------+---------+ + + + documented as of this encounter Visit Diagnoses + + | Diagnosis | + + | 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
--- OUTSIDE RECORDS SUMMARY | ~2019-07-09 | XMS | Encounter Summary ---
Demographics + + + | Address | [address] | | | [place] [address] | + + + | Home Phone [...] Providers + +------+ + | Care Travel Services Professional Name | Role | Phone | [...] + + | 06/28/ | Telephone | [facility] | Zully Soto RN | Refill Request | | 2014 | | [facility] | [place], [place] | | | | | [address] | [address] | | | | | [address] | | | | | | [place], [address] [facility] | | | | | | [place], [place] | | | | | | [address] | | | | | | [phone] | | | +--------+ + + + [...]
--- OUTSIDE RECORDS SUMMARY | ~2019-07-09 | XMS | Encounter Summary ---
Demographics + + + | Address | [address] | | | [place] [address] | + + + | Home Phone [...] Providers + +------+ + | Care Manager Cargo Name | Role | Phone | + [...] | | | | | | | [place], [place] | | | | | | | [address] | | | | | | | Phone: | | | | | | | [phone] | | | | | | | Fax: | | | | | | | [phone] | +--------+--------+ + + + + Encounter Details +--------+ + + + + | Date | Type | Department | Care Team | Description | +--------+ + + + + | 07/04/ | Hospital | [facility] | Virgilio Esquivel MD | | | 2008 | Encounter | [address] | [address] | | | | | Katerina Mailcode: [facility] | Velma [place], | | | | | [facility] | [place] [address] | | | | | Health and Healing, | [phone] | | | | | [facility] [address] | | | | | | [place], [place] | | | | | | [address] | | | | | | [phone] | | | +--------+ + + + [...] Performed At | + + + | [id number] | | | [id number] | | | [id number] [facility] 353200 [id number] | | | Date: 07/04/2008 Attending Surgeon: | | | Virgilio Esquivel M.D. Hose Turner(s): | | | Prudencio Fay MD Preoperative [...] left side, and | | | a [place] was used to elevate the left mucoperichondrial [...] performed with a #15 blade followed by [place] elevation of | | | mucoperichondrial flap. The portions of mucosa surrounding the | | | perforation were then incised with a [place]. Additional mobilization | | | of the [...] Surgery MMK / HS | | | [id number] / [id number] / [id number] / | | | | | + + + + + | Procedure Note | + + | Prudencio Fay MD - 07/04/2008 12:00 AM PDT [id number] | | [id number] [facility] | | [place] [id number] Date: 07/04/2008 Attending Surgeon: | | Virgilio Esquivel M.D. Hose Turner(s): Prudencio Fay MD | | Preoperative Diagnosis(es):Septal [...] the cartilage on theleft side, and a [place] was | | used to elevate the left mucoperichondrial flap.This was elevated above and below the | | level of the perforation and wastaken past the bony cartilaginous junction superiorly | | and inferiorly. Inorder to gain additional exposure, the right side was approached in | | asimilar fashion. Cartilaginous scoring was performed with a #15 bladefollowed by [place] | | elevation of mucoperichondrial flap. The portions ofmucosa surrounding the perforation | | were then incised with a [place].Additional mobilization of the bilateral | | mucoperichondrial [...] cartilages onto the anterior septal angle of [facility]. The soft tissue | | skin envelope [...] M.D.Facial Plastic | | and Reconstructive Surgery [facility] / [id number] / [id number] / [id number] / T: 07/06/2008 | | | |approached initially. A #15 blade was used to score the cartilage on the | |left side, and a [place] was used to elevate the left mucoperichondrial flap. | |This was elevated above and below the level of the perforation and was | |taken past the bony cartilaginous junction superiorly and inferiorly. In | |order to gain additional exposure, the right side was approached in a | |similar fashion. Cartilaginous scoring was performed with a #15 blade | |followed by [place] elevation of mucoperichondrial flap. The portions of | |mucosa surrounding the perforation were then incised with a [place]. | |Additional mobilization of the bilateral mucoperichondrial [...] | | | |KRISTINA / HS | |[id number] / [id number] / 30737 / | | | | | | | | | | | | | | | | | | | | | + + TEACHING PHYSICIAN (07/04/2008 12:00 AM PDT) + + + | Narrative | Performed At | + + + | [id number] | | | [id number] | | | [id number] [facility] 524217 | | | Date: 07/04/2008 Attending Surgeon: | | | Virgilio Esquivel M.D. Hose Turner(s): | | | Prudencio Fay MD Preoperative [...] case. Virgilio Goodson | | | Frank sEquivel. Facial Plastic and Reconstructive Surgery TDW / HS | | | [id number] / [id number] / 53567 / | | | | | + + + + + | Procedure Note | + + | Virgilio Esquivel MD - 07/04/2008 12:00 AM PDT [id number] | | [id number] [facility] | | [place] [id number] Date: 07/04/2008 Attending Surgeon: | | Virgilio Esquivel M.D. Hose Turner(s): Prudencio Fay MD | | Preoperative Diagnosis(es):Nasal [...] M.D.Facial Plastic and Reconstructive Surgery TDW / [id number] / | | [id number] / [id number] / T: 07/04/2008 | | | | [...] | | | |TDW / HS | |[id number] / 849389 / 39088 / | | | | | | | | | | | | | | | | | | | | | + + documented in this encounter Visit Diagnoses Not on filedocumented in this encounter
--- OUTSIDE RECORDS SUMMARY | ~2019-07-09 | XMS | Encounter Summary ---
Demographics + + + | Address | [address] | | | [place] [address] | + + + | Home Phone [...] | Author | [facility] | | | and Eduardoana | + + + | Organization | [facility] | | | and Eduardoana | + + + | Address | Unknown | + + + | Phone | Unavailable | + + + Support + + + + + | Name | Relationship | Address | Phone | + + + + + | Poncho Oquendo | ECON | [address] | | | | | [facility] [place] | | | | | [address] | | + + + + + | Marta Upton | ECON | [place], [place] | | | | | [address] | | + + + + + Care Team Providers + +------+ + | Care Cupola Mechanic Name | Role | Phone | + +------+ + PCP | Unavailable | + +------+ + Encounter Details +--------+ + + + + | Date | Type | Department | Care Team | Description | +--------+ + + + + | 08/07/ | Hospital | [facility] | | | | 2012 - | Encounter | [facility] | | | | | [facility] [address] | | | | 08/13/ | | [place] | | | | 2012 | | [address] | | | | | | [phone] | | | +--------+ + + + [...] [address] | | | | | | [place] [address] | | | | | | [phone] | | | | | | | [...] + | [facility] | [address] | [place], [place] | [phone] | | [facility] | | [address] | | | - LABORATORY | | | | + + + + + | [facility] | [address] | [place] | | | [facility] | | [address], [facility] | | | - LABORATORY | [...] | | (formerly Mahad) Advia | | [facility] | | | | Centaur immunoassay [...] Agee | | | | | | [address] CLIA: | | | | | | [id number] | | | | + + + + + + + + | Specimen | + + | | + + + + + + + | Performing | Address | City/State/Zipcode | Phone Number | | Organization | | | | + + + + + | [facility] | [address] | [place], [place] | [phone] | | [facility] | | [address] | | | - LABORATORY | | | | + + + + + | [facility] | [address] | [place] | | | [facility] | | [id number] [place] [address] | | | - LABORATORY | | [...] | Performing | Address | City/State/[facility] | Phone Number | | Organization | | | | + + + + + | [facility] | [address] | [place] | [phone] | | [facility] | | [address] | | | - LABORATORY | | | | + + + + + | [facility] | [address] | [place] | | | [facility] | | [address], [facility] | | | - LABORATORY | [...] + | [facility] | [address] | [place] | [phone] | | [facility] | | [address] | | | - LABORATORY | | | | + + + + + | [facility] | [address] | [place], [place] | | | [facility] | | [address] | | | - [...] + | [facility] | [address] | [place], [place] | [phone] | | [facility] | | [address] | | | - LABORATORY | | | | + + + + + | [facility] | [address] | [place], [place] | | | [facility] | | [phone] [place] [address] | | | - LABORATORY | | [...] [address] | [place] | [phone] | | [facility] | | [address] | | | - LABORATORY | | | | + + + + + | [facility] | [address] | [place] | | | [facility] | | [address], [facility] | | | - LABORATORY | [...] + | [facility] | [address] | [place], [place] | [phone] | | [facility] | | [address] | | | - LABORATORY | | | | + + + + + | [facility] | [address] | [place], [place] | | | [facility] | | [id number] [place] [address] | | | - LABORATORY | | [...] [address] | [place] | [phone] | | [facility] | | [address] | | | - LABORATORY | | | | + + + + + | [facility] | [address] | [place] | | | [facility] | | [address] | | | - [...] | | Protein | | | ST. [facility] | | [...] | >60Comment: For | >60 mL/min/A | [facility] | | | GFR | -Americans, | [...] + | [facility] | [address] | [place] | [phone] | | [facility] | | [address] | | | - LABORATORY | | | | + + + + + | [facility] | [address] | [place] | | | [facility] | | [address] | | | - [...] + | [facility] | [address] | [place], [place] | [phone] | | [facility] | | [address] | | | - LABORATORY | | | | + + + + + | [facility] | [address] | [place], [place] | | | [facility] | | [id number] [place] [address] | | | - LABORATORY | | [...] + | [facility] | [address] | [place], [place] | [phone] | | [facility] | | [address] | | | - LABORATORY | | | | + + + + + | [facility] | [address] | [place], [place] | | | [facility] | | [address], [facility] | | | - LABORATORY | [...] [address] | [place] | [phone] | | [facility] | | [address] | | | - LABORATORY | | | | + + + + + | [facility] | [address] | [place] | | | [facility] | | [address] | | | - [...] ST. | [address] | [place] | [phone] | | [facility] | | [address] | | | - LABORATORY | | | | + + + + + | [facility] | [address] | [place], [place] | | | [facility] | | [address] [place] [address] | | | - LABORATORY | | | | + + + + + documented in this encounter Visit Diagnoses Not on filedocumented in this encounter"
--- OUTSIDE RECORDS SUMMARY | ~2019-07-09 | XMS | Encounter Summary ---
Demographics + + + | Address | [address] | | | [place] [address] | + + + | Home Phone [...] | Author | [facility] | | | and Eduardoana | + + + | Organization | [facility] | | | and Eduardoana | + + + | Address | Unknown | + + + | Phone | Unavailable | + + + Support + + + + + | Name | Relationship | Address | Phone | + + + + + | Poncho Oquendo | ECON | [address] | | | | | [facility] [place] | | | | | [address] | | + + + + + | Marta Upton | ECON | [place] | | | | | [address] | | + + + + + Care Team Providers + +------+ + | Care Wrap Knitting Machine Operator Name | Role | Phone [...] + + | 04/26/ | Surgery | [facility] | Pedro Green, | CYSTOSCOPY URETERAL | | 2019 | | REGIONAL SURGERY | DO [address] | STENT | | | | CENTER INTRA OP | [place] [address] | REMOVAL/REPLACEMENT | | | | [address] | [phone] | | | | | [place], [place] | | | | | | [address] | | | | | | [phone] | | | +--------+---------+ + + + [...] lasts more than a day, a fever [id number] (38 C), or trouble urinating. Date Last Reviewed: 02/15/201619991524-0736 [employer]. [address] [place] [address], [place] [address]. All righ ts reserved. This information is [...] out of the urethra Date Last Reviewed: 02/15/201619993175-4993 [employer] [address] [place] [address]. All righ ts reserved. This information is [...] insert 1 tablet | | 0 | 03/15/ | | | (VAGIFEM) 10 mcg | [...] 1 tablet by | | 0 | /06/03 | | | HYDROcodone-acetamin | mouth every [...] documented as of this encounter Progress Notes Cindy Casarez RN - 04/27/2019 8:52 AM PDTD/C instructions reviewed with pt and spouse. Rx x2 given to spouse. documented in this en counter Plan of Treatment +--------+---------+ + + + | Date | Type | Specialty | Care Team | Description | +--------+---------+ + + + | 09/17/ | Office | Urology | Pedro Green, | | 2019 | Visit | | DO [address] | | | | | | [place] [address] | | | | | | [phone] | | | | | | | [...] +---------+ +---+ +---+ | New Bag | 03/13/20 | | 30 mL/hr | | | | 20 9:28 | | | | | | AM PDT | | | | +---------+ +---+ +---+ +---+---+ | | | +---+---+ documented in this encounter
--- OUTSIDE RECORDS SUMMARY | ~2019-07-09 | XMS | Encounter Summary ---
Demographics + + + | Address | [address] | | | [place] [address] | + + + | Home Phone [...] Team Providers + +------+ + | Care Web Architect Name | Role | Phone | + +------+ + | Prudencio Isaac MD | PCP | | + +------+ + Encounter Details +--------+ + + + + | Date | Type | Department | Care Team | Description | +--------+ + + + + | 05/11/ | Telephone | [facility] | Tai Stanton, | | | 2012 | | [place] [address] | [address] [facility] | | | | | [address] | [address] | | | | | Mailcode: Center | [place], [place] | | | | | [facility] and | [address] | | | | | Healing, [address] | [phone] | | | | | [place], [place] | | | | | | [address] | | | | | | [phone] | | | +--------+ + + + [...]
--- OUTSIDE RECORDS SUMMARY | ~2019-07-09 | XMS | Encounter Summary ---
Demographics + + + | Address | [address] | | | [place] [address] | + + + | Home Phone [...] Team Providers + +------+ + | Care Haircutter Name | Role | Phone | + +------+ + PCP | Unavailable | + +------+ + Encounter Details +--------+ + + + + | Date | Type | Department | Care Team | Description | +--------+ + + + + | 04/11/ | Abstract | [facility] | Tai Stanton, | | | 2012 | | [place] [facility] [address] | [address] | | | | | [address] | [address] | | | | | Mailcode: [place] | [place], [place] | | | | | for Health and | [address] | | | | | [place] [address] | [phone] | | | | | [place], [place] | | | | | | [address] | | | | | | [phone] | | | +--------+ + + + [...]
--- OUTSIDE RECORDS SUMMARY | ~2019-07-09 | XMS | Encounter Summary ---
Demographics + + + | Address | [address] | | | [place] [address] | + + + | Home Phone [...] | Author | [facility] | | | and Eduardoana | + + + | Organization | [facility] | | | and Eduardoana | + + + | Address | Unknown | + + + | Phone | Unavailable | + + + Support + + + + + | Name | Relationship | Address | Phone | + + + + + | Poncho Oquendo | ECON | [address] | | | | | [facility], [place] | | | | | [address] | | + + + + + | Marta Upton | ECON | [place] | | | | | [address] | | + + + + + Care Team Providers + +------+ + | Care Certified Neurodiagnostic Technologist Name | Role | Phone | [...] + + | 02/12/ | Telephone | [facility] | Pedro Green, | Follow-up | | 2019 | | UROLOGY [address] | DO [address] | | | | | [address] | [place] [address] | | | | | [place], [place] | [phone] | | | | | [address] | | | | | | [phone] | | | +--------+ + + + [...] [address] | | | | | | [place] [address] | | | | | | [phone] | | | | | | | | +--------+---------+ + + + documented as of this encounter Visit Diagnoses Not on filedocumented in this encounter"
--- OUTSIDE RECORDS SUMMARY | ~2019-07-09 | XMS | Encounter Summary ---
Demographics + + + | Address | [address] | | | [place] [address] | + + + | Home Phone [...] | Located Within [facility] [place] | | | and [place] | + + + | Organization | Located Within [facility] [place] | | | and [place] | + + + | Address | Unknown | + + + | Phone | Unavailable | + + + Support + + + + + | Name | Relationship | Address | Phone | + + + + + | Poncho Oquendo | ECON | [address] | | | | | [facility] [place] | | | | | [address] | | + + + + + | Marta Corbin | ECON | [place], [place] | | | | | [address] | | + + + + + Care Team Providers + +------+ + | Care Securities Sales Associate Name | Role | Phone | + +------+ + PCP | Unavailable | + +------+ + Encounter Details +--------+ + + + + | Date | Type | Department | Care Team | Description | +--------+ + + + + | 09/28/ | Hospital | [facility] | | | | 2012 | Encounter | MED CTR XRAY [address] | | | | | | [place] | | | | | | [place] [address] | | | | | | [phone] | | | +--------+ + + + [...] [facility] | | | | | | [place] [address] | | | | | | [phone] | | | | | | | [...] At | + + + | [facility] | PACIFIC | | Department [address] [place] [address] | [facility] | | [ rep [address]] [ rep [facility] | | st zip] Signed | - IMAGING | | | | | Patient Name: ARUA CORBIN Physician: | | | SHEP.20 : 1960 Age: 51 Sex: F Unit #: [id number] | | | Exam Date: 09/28/12 [place] [facility] | | | Report #: [id number] Page: | | | %(RAD)RES..mtdd.print.filter("pg") of %(RAD) | | | RES..mtdd.print.filter("tpg") | | | | | | Accession Number: [id number] | | | ABDOMINAL ULTRASOUND, 09/28/2012 CLINICAL [...] | | | demonstrates increased echogenicity, likely textile designs sales representative of fatty | | | infiltration. [...] Transcribed | | | Date/Time: 09/28/2012 12:53 Computer Lab Aide: | | | <<Signature on File>> | | | Jj | | | MD Franck09/28/12 2019 <Electronically signed by Jj Juárez MD> | | | Jj Juárez MD 09/28/12 1230 Computer Lab Aide: [email or web address] | | | Dsubnnjdjjzrq24/15/13 7933 Tai Stanton MD | | | Tej Boyce DO | | + + + + + + + + | Performing | Address | City/State/Zipcode | Phone Number | | Organization | | | | + + + + + | [facility] | [address] | [place] | [phone] | | [facility] | | [address] | | | - IMAGING | | | | + + + + + XR Abdomen AP (09/28/2012 10:03 AM PDT) + + | Specimen | + + | | + + + + + | Narrative | Performed At | + + + | Accession Number: [id number] ABDOMINAL ULTRASOUND, | | | 09/28/2012 CLINICAL [...] demonstrates increased | | | echogenicity, likely textile designs sales representative of fatty infiltration. There is | [...] Transcribed | | | Date/Time: 09/28/2012 12:53 Computer Lab Aide: | | | <<Signature on File>> | | | Jj | | | MD Franck09/28/12 2019 <Electronically signed by Jj Juárez MD> | | | Jj Juárez MD 09/28/12 1230 Computer Lab Aide: [email or web address] | | | Sfyrgcxydwkdu88/15/13 1253 MD Tej Ramachandran, DO | | | | | + + + + + | Procedure Note | + + | Edmundo, Rad Results In - 07/07/2015 9:27 AM PDT Accession Number: [id number] | | ULTRASOUND, 09/28/2012 CLINICAL HISTORY: HISTORY [...] pancreas demonstrates increased | | echogenicity, likely textile designs sales representative of fatty infiltration. There is limited [...] MD>Jj Juárez MD 09/28/12 | | 1230Transcriptionist: [employer] Ndlykvfmemjxe15/15/13 1253BNusrat Holliday, | | DO | |There [...] 12:30 | |Transcribed Date/Time: 09/28/2012 12:53 | |Computer Lab Aide: | | | | | | | |<<Signature on File>> | | | |Jj Juárez MD09/28/12 2019 | |<Electronically signed by Jj Juárez MD> | | | | | |Jj Juárez MD 09/28/12 1230 | |Computer Lab Aide: [employer] Jbbpbxlikoulm44/15/13 1253 | | | | | |Tai Stanton MD | |Tej Boyce, DO | + + documented in this encounter Visit Diagnoses Not on filedocumented in this encounter
--- OUTSIDE RECORDS SUMMARY | ~2019-07-09 | XMS | Encounter Summary ---
Demographics + + + | Address | [address] | | | [place] [address] | + + + | Home Phone [...] | [facility] [place] | | | and [place] | + + + | Organization | [facility] [place] | | | and [place] | + + + | Address | Unknown | + + + | Phone | Unavailable | + + + Support + + + + + | Name | Relationship | Address | Phone | + + + + + | Poncho Oquendo | ECON | [address] | | | | | [facility] [place] | | | | | [address] | | + + + + + | Marta Upton | ECON | [place], [place] | | | | | [address] | | + + + + + Care Team Providers + +------+ + | Care Travel Guide Name | Role | Phone | + +------+ + | No, Physician | PCP | Unavailable | + +------+ + Encounter Details +--------+ + + + + | Date | Type | Department | Care Team | Description | +--------+ + + + + | 04/26/ | Hospital | [facility] | Pedro Green, | | | 2019 | Encounter | REGIONAL SURGERY | DO [address] | | | | | CENTER INTRA OP | [place] [address] | | | | | [address] | [phone] | | | | | [place], [place] | | | | | | [address] | | | | | | [phone] | | | +--------+ + + + [...] [address] | | | | | | [place] [address] | | | | | | [phone] | | | | | | | [...]
--- OUTSIDE RECORDS SUMMARY | ~2019-07-09 | XMS | Encounter Summary ---
Demographics + + + | Address | [address] | | | [place] [address] | + + + | Home Phone [...] Team Providers + +------+ + | Care Clothes Separator Name | Role | Phone | [...] 2014 | | Clinics at S | [employer], [place] | | | | | [facility] | [address] | | | | | for Health and | | | | | | Healing [address] | | | | | | [place], [place] | | | | | | [address] | | | | | | [phone] | | | +--------+ + + + [...]
--- OUTSIDE RECORDS SUMMARY | ~2019-07-09 | XMS | Encounter Summary ---
Demographics + + + | Address | [address] | | | [place] [address] | + + + | Home Phone [...] | [facility] [place] | | | and [place] | + + + | Organization | [facility] | | | and [place] | + + + | Address | Unknown | + + + | Phone | Unavailable | + + + Support + + + + + | Name | Relationship | Address | Phone | + + + + + | Poncho Oquendo | ECON | [address] | | | | | [place] | | | | | [address] | | + + + + + | Marta Upton | ECON | [place] | | | | | [address] | | + + + + + Care Team Providers + +------+ + | Care Keying Machine Operator Name | Role | Phone [...] [address] | | | | | [address] [place] | [place] [address] | | | | | [place] [address] | [phone] | | | | | [phone] | | | +--------+ + + + [...] [address] | | | | | | [place] [address] | | | | | | [phone] | | | | | | | | +--------+---------+ + + + documented as of this encounter Visit Diagnoses + + | Diagnosis | + + | Gallbladder cancer, 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
--- OUTSIDE RECORDS SUMMARY | ~2019-07-09 | XMS | Encounter Summary ---
Demographics + + + | Address | [address] | | | [place] [address] | + + + | Home Phone [...] Author | [facility] [place] | | | and [place] | + + + | Organization | [facility] [place] | | | and [place] | + + + | Address | Unknown | + + + | Phone | Unavailable | + + + Support + + + + + | Name | Relationship | Address | Phone | + + + + + | Poncho Oquendo | ECON | [address] | | | | | [facility] [place] | | | | | [address] | | + + + + + | Marta Upton | ECON | [place] | | | | | [address] | | + + + + + Care Team Providers + +------+ + | Care Group Marketing Vp Name | Role | Phone | + [...] + + | 02/12/ | Telephone | [facility] | Pedro Green, | Missing Paperwork | | 2019 | | UROLOGY [address] | DO [address] | (notes on MyChart); | | | | [address] | [place] [address] | Other (Return pt | | | | [place], [place] | [phone] | call ) | | | | [address] | | | | | | [phone] | | | +--------+ + + + [...] | | | | | [place] [address] | | | | | | [phone] | | | | | | | | +--------+---------+ + + + documented as of this encounter Visit Diagnoses Not on filedocumented in this encounter"
--- OUTSIDE RECORDS SUMMARY | ~2019-07-09 | XMS | Encounter Summary ---
Demographics + + + | Address | [address] | | | [place] [address] | + + + | Home Phone [...] [facility] | | | and [place] | + + + | Organization | [facility] | | | and [place] | + + + | Address | Unknown | + + + | Phone | Unavailable | + + + Support + + + + + | Name | Relationship | Address | Phone | + + + + + | Poncho Oquendo | ECON | [address] | | | | | [place] | | | | | [address] | | + + + + + | Marta Upton | ECON | [place] | | | | | [address] | | + + + + + Care Team Providers + +------+ + | Care Aircraft De Icer Installer Name | Role | Phone | [...] | | | ON[facility]Y CLINIC [address] | [facility] | | | | | [facility] | [place] [address] | | | | | [place] [address] | [phone] | | | | | [phone] | | | +--------+ + + + [...] | [facility] [address] | | | | | | [phone] | | | | | | | | +--------+---------+ + + + documented as of this encounter Visit Diagnoses Not on filedocumented in this encounter"
--- OUTSIDE RECORDS SUMMARY | ~2019-07-09 | XMS | Encounter Summary ---
Demographics + + + | Address | [address] | | | [place] [address] | + + + | Home Phone [...] | [facility] [place] | | | and [place] | + + + | Organization | [facility] [place] | | | and [place] | + + + | Address | Unknown | + + + | Phone | Unavailable | + + + Support + + + + + | Name | Relationship | Address | Phone | + + + + + | Poncho Oquendo | ECON | [address] | | | | | [facility] [place] | | | | | [address] | | + + + + + | Marta Upton | ECON | [place] | | | | | [address] | | + + + + + Care Team Providers + +------+ + | Care Hand Stoner Name | Role | Phone | + [...] + + | 02/12/ | Telephone | [facility] | Pedro Green, | Follow-up | | 2019 | | UROLOGY [address] | DO [address] | | | | | [address] | [place] [address] | | | | | [place], [place] | [phone] | | | | | [address] | | | | | | [phone] | | | +--------+ + + + [...] [address] | | | | | | [place] [address] | | | | | | [phone] | | | | | | | | +--------+---------+ + + + documented as of this encounter Visit Diagnoses Not on filedocumented in this encounter"
--- OUTSIDE RECORDS SUMMARY | ~2019-07-09 | XMS | Encounter Summary ---
Demographics + + + | Address | [address] | | | [place] [address] | + + + | Home Phone [...] Providers + +------+ + | Care Nuclear Reactor Technician Name | Role | Phone | [...] + + | 06/06/ | Hospital | [facility] [address] | Miguel Seymour, | | | 2015 - | Encounter | [address] | [address] [facility] | | | | | [place], [place] | [address] | | | 06/09/ | | [address] | [place], [place] | | | 2014 | | [phone] | [address] | | | | | | [phone] | | | | | | | [...] DISCHARGE SUMMARY Author: Roger Guadalupe MD PGY1 INTERNET MARKETING ANALYST Attending Physician: Dr. Henderson Admission Date: 06/06/2014 [...] to Get Your Medications You need to clam picker these prescriptions. We sent some of them to a specific pharmacy. Go t o these places to get your medications. [place] - [facility] - enoxaparin 40 mg/0.4 mL Syrg [address] [facility] [address] Hours: 8AM-9PM Mon-Fri; 9-5:30PM Sat-Sun You may [...] contact your provider, please call the [facility] clinic at [phone] during daytime hours. During evening or weekend hours, please call the [facility] paging concrete mixer operator at [phone] and ask for the Animal Att[facility] Train[facility] Oncology staff on-call. Reasons to call the [...] stable Discharging Physician: Roger Guadalupe MD PGY1 INTERNET MARKETING ANALYST Service Pager: [phone] Attending Physician: Dr. Henderson I saw and [...] assessment and plan. Roger Guadalupe MD PGY1 INTERNET MARKETING ANALYST Service Pager: [phone] I saw and evaluated the patient. I [...] Primary service notified. RAGHU DALY MD [facility] [address] [facility] 4th Floor Mail Code: CH4P [place], [place] [address] Raghu Antony MD - 06/08/2014 [...] and recommendations with primary care team provider gyn physician/oncology. RAGHU DALY MD BILLING INFORMATION [facility] DEPARTMENT: [id number] Place of Service:- Inpatient Date of Service: 06/08/2014 CSN: [id number] Suggested Modifier: None Suggested CPT: 22924 - Daily mgmt epidural/subarachnoid drug administration Prolonged [...] assessment and plan. Roger Guadalupe MD PGY1 INTERNET MARKETING ANALYST Service Pager: [phone] I saw and evaluated the patient. I [...] note in EPIC). RAGHU DALY MD [facility] [address] [facility], 4th Floor Mail Code: [address] [address] alika, Raghu Ceollo MD - 06/07/2014 7:39 AM PDT INPATIENT [...] team provider . RAGHU DALY MD [facility] [address] [facility], 4th Floor Mail Code: CH4[facility] [place], [place] [id number] BILLING INFORMATION [facility] DEPARTMENT: [id number] Place of Service:- Inpatient Date of Service: 06/07/2014 CSN: [id number] Suggested Modifier: GC - Resident Involved Suggested CPT: 48079 - Daily mgmt epidural/subarachnoid drug administration Prolonged [...] be different from the [facility] GYNECOLOGY ONCOLOGY INPATIENT PROGRESS NOTE [...] | Abdominal or | | | LAPAROSCOPY (FRUIT PRESERVER | ve | 7:27 AM | pelvic [...] + +--------+ + + + | NON FRUIT PRESERVER CYTOLOGY | Routin | 06/06/2014 | | [...] + + + + + | [facility] | [address] | [place] [address] | | | SERVICES, CORE | PARK [...] | + + + + + | [facility] | [address] | [place] [address] | | | SERVICES, CORE | NEAL [...] | | | LABORATORY | | | ERITREAN | | | SERVICES, | | | [...] the MDRD equation recommended by the | [facility] | | National Kidney Disease Education [...] + + + + + | [facility] | [address] | [place] [address] | | | SERVICES, CORE | PARK [...] GWEN GARCIA | [address] | [place] [address] | | | SAM ALONSO | PARK [...] + + + + + | [facility] | [address] | [place] [address] | | | SERVICES, CORE | PARK [...] | | | LABORATORY | | | ERITREAN | | | SERVICES, | | | [...] | + + + + + | [facility] | [address] | [place] [address] | | | SERVICES, CORE | [address] | | | + + + + + OPERATION RECORD (06/07/2014 8:30 AM PDT) + + | Transcriptions | + + | Miguel Seymour MD - 06/06/2014 12:48 PM PDT Date of Service: 06/06/2014 | | Attending Surgeon: Miguel Seymour MD Isotope Technician(s): | | Poncho Arriola MD. Anesthesia: General [...] 06/06/2014 11:52:24DT: 06/06/2014 12:48:01Job #: | | [id number] DEPARTMENT: [id number] FRUIT PRESERVER ONC KPlace of Service: - | | IPDate of Service: 06/07/2014 : [id number] | | Modifier: NoneSuggested CPT: NoneSuggested Procedure [...] + + + + + | [facility] | [address] | [place] [address] | | | SERVICES, CORE | NEAL [...] + + + + + | [facility] | [address] | [place] [address] | | | SERVICES, CORE | PARK [...] | + + + + + | [facility] | [address] | [place] [address] | | | GAVIN, SAM | NEAL [...] [facility] | [address] | [place] [address] | | | SERVICES, CORE | PARK [...] | | | LABORATORY | | | ERITRE[address] | | | SERVICES, | | | [...] | + + + + + | [facility] | [address] | [place] [address] | | | SERVICES, CORE | [address] | | | + + + + + NON FRUIT PRESERVER CYTOLOGY (06/06/2014) + + + + + + | Component | Value | Ref Range | Performed | Pathologist | | | | | At | Signature | + + + + + + | NON-FRUIT PRESERVER | SOURCE OF SPECIMEN:A | | [facility] [...] San | | | | | | CT(ASCP)Ornament Maker Hand | | | | | | Electronically [...] | + + + + + | [facility] | [address] | [place] [address] | | | PATHOLOGY | [address] [...] | | | | | | corresponding [id number] | | | | | | B: [...] bed | | | | | | ([id number], slides E3-4). | | | | | [...] | | | | | | s/pchemoXRT ([id number], | | | | | | [id number]); now with | | | | | [...] | | | | | | Manager Occupational | | | | | | sections [...] | | | | | | Manager Occupational | | | | | | sections [...] residueB3-6, | | | | | | automotive sales representative sections | | | | | | of #1 external | | | | | | excrescenceB7-8, #2 | | | | | | external | | | | | | excrescenceB9-10, entire | | | | | | #3 external | | | | | | rcipwnxnimoJ87, | | | | | | automotive sales representative sections | | | | | | of del rio-brown | | | | | | excrescences from inner | | | | | | cyst tklezzjoymD96-11, | | | | | | additional sections of | | | | | | hknfcT10, automotive sales representative | | | | | [...] endomyometriumD5, | | | | | | automotive sales representative sections | | | | | | of right ovaryD6-9, | | | | | | automotive sales representative sections | | | | | | of external ovarian | | | | | | pmslhhW94-49, | | | | | | automotive sales representative sections | | | | [...] | + + + + + | [facility] | [address] | [place] [address] | | | PATHOLOGY | [address] [...]
--- OUTSIDE RECORDS SUMMARY | ~2019-07-09 | XMS | Encounter Summary ---
Demographics + + + | Address | [address] | | | [place] [address] | + + + | Home Phone [...] Author | [facility] [place] | | | and [place] | + + + | Organization | [facility] [place] | | | and [place] | + + + | Address | Unknown | + + + | Phone | Unavailable | + + + Support + + + + + | Name | Relationship | Address | Phone | + + + + + | Poncho Oquendo | ECON | [address] | | | | | [place] | | | | | [address] | | + + + + + | Marta Upton | ECON | [place] | | | | | [address] | | + + + + + Care Team Providers + +------+ + | Care Director Of Instrumental Music Name | Role | Phone | + [...] | | Carcinoma | Reinaldo, | [address] [place] | | | | | of gall | Epifanio C, | [place], | | | | | bladder | MD [address] | [place] [address] | | | | | (HCC) | [address] | Phone: | | | | | Procedures | [place], | [phone] | | | | | CT Chest | [place] [address] | Fax: | | | | | Abdomen | Phone: | [phone] | | | | | Pelvis w | [phone] | | | | | | Contrast | Fax: | | | | | | | [phone] | | +--------+--------+ + + + + [...] (Primary Dx) | | | | [address] [place] | [place] [address] | | | | | [place] [address] | [phone] | | | | | [phone] | | | +--------+ + + + [...] [address] | | | | | | [place] [address] | | | | | | [phone] | | | | | | | [...] intravenous administration of 100 mL | | [id number] contrast. Oral contrast was administered. Multiplanar reformatted [...]
--- OUTSIDE RECORDS SUMMARY | ~2019-07-09 | XMS | Encounter Summary ---
Demographics + + + | Address | [address] | | | [place] [address] | + + + | Home Phone [...] Team Providers + +------+ + | Care Wind Power Project Manager Name | Role | Phone [...] [address] | | | | | [place], [place] | [address] | | | 12/27/ | | [address] | [place], [place] | | | 2017 | | [phone] | [address] | | | | | | [phone] | | | | | | | | | | | | Marbin Espinoza MD | | | | | | [address] | | | | | | [place], | | | | | | [place] [address] | | | | | | [phone] | | | | | | | | | | | | Lloyd Garcia, | | | | | | [address] | | | | | | [address] | | | | | | [place], [place] | | | | | | [address] | | | | | | [phone] | | | | | | | [...] differen t from the original. [facility] Discharge Summary Discharging Provider: RAGHU JARRETT MD [...] # Klebsiella bacteremia # infected portacath At [facility], Ms. Upton was hypotensive to 70/40s with fever concerning for septic s hock. She received IV fluids and 1 unit pRBCs for Hgb of 7.0 and was transferred to [facility] for further care. On admission to [facility], she was no longer hypotensive and did not require vasopressors. She was started on cefepime, flagyl, and vancomycin. Blood cultures at [facility]SH fro m 12/23 revealed Klebsiella pneumoniae from both R hand and portacath. It was pansentitive. I nfectious disease was consulted who found that pt has Klebsiella bacteremia 1 month ago joyce whiting admitted to [facility] for sepsis. Given 2 bacteremic events, portacath [...] date. Culture from cath tip 12/27: pending [facility] Blood culture 12/23 x2 (peripheral and port) GNR; cx Klebsiella pneumonia (R: ampicillin; s: cefazolin, ceftriaxone, meropenem, ciprofloxacin, tmp/smx) Discharge Medications: Medication List START taking these medications ciprofloxacin HCl 500 mg Tab Commonly known as: CIPRO Take 1 tablet by mouth every twelve hours. Indications: port infection NARCAN 4 mg/actuation [address] Generic drug: naloxone Instill 1 spray into [...] [address] [place] [address] VALERIY CARMONA MD . Specialty: Family Medicine Contact information [facility] [address] [address] [place] [address] Discharge Physical Exam: Last 24 hour min/max [...] Raghu Jarrett M.D. Internal Medicine PGY-3 Pager [phone] Associated attestation - Lloyd Garcia MD - 12/27/2017 10:01 PM [facility] Date of admission: 12/23/2017 11:11 PM [...] and follow up plan. Lloyd Garcia MD Sales Expertsheet pile hammer operator Clinical Hospitalist and Medicine Teaching Service Division of [facility] Medicine Pager [phone] Patients Hospital Problem List: Active Hospital Problems [...] MD - 12/27/2017 12:40 PM PST{Diet Inst ructions:99685} Discharge Instr - Activity (facility) Lloyd Garcia MD - 12/27/2017 12:40 PM PST{Activ ity Orders:37230} Additional Instructions Lloyd Garcia MD - 12/27/2017 12:39 PM PST{Additional Instruct ions AVS:87526} Opioid Pain Management {Opioid pain medication plan:71939} documented in this encounter Medications at Time [...] 15 oz) (12/23/172321) Physical Exam: General: pleasant nlq-hyhdo-yfjpizgbk woman lying in bed in no acute [...] oral BID Microbiology: 11/07 blood culture at [facility] also grew klebsiella pneumoniae, when she had sepsis 12/23 blood culture at [facility] Klebsiella pneumoniae NGTD 12/23 blood cultures here Imaging: No new imaging Hospital problem list: Patient Active Problem List Diagnosis Date Noted Bacteremia due to Gram-negative bacteria 12/24/2017 Priority: 1 JULY (acute kidney injury) (HCC) 12/24/2017 Priority: 2 Cholangiocarcinoma (HCC) 04/27/2012 Priority: 3 Overview Note: -Diagnosed 2012. Followed by Dr. Ragland at [facility] in [place]. -04/26/2012: R0 Resection. -05/31/2012-09/03/2012 Chemotherapy: Xeloda/gemictabine x4 [...] her port has been used. Records per [facility] from 11/07 and 12/23. Was on [...] Arley ramirez - update Dr. Ragland in [place] on Tuesday # thrombocytopenia Likely chemotherapy related [...] Maker Primary Surrogate Decision Maker Poncho Oquendo [phone] Patient was staffed with my attending Dr. Garcia who agrees with my assessment and plan unl ess otherwise indicated. Myriam Holt MD 12/25/2017 PGY1 physician [id number] Associated attestation - Lloyd Garcia MD - 12/26/2017 9:53 PM PSTGENERAL MEDICINE AR OGRESS NOTE ATTESTATION Date of admission: 12/23/2017 [...] removal, documenting, reviewing records. Lloyd Garcia MD Sales Expertsheet pile hammer operator Clinical Hospitalist and Medicine Teaching Service Division of [facility] Medicine Pager [phone] Patients Hospital Problem List: Active Hospital Problems 1) *Bacteremia due to Gram-negative bacteria 2) JULY (acute kidney injury) (HCC) 3) Chronic use of opiate drugs therapeutic purposes 4) Hx of small bowel obstruction 5) Gastrostomy tube in place (HCC) 6) Insomnia 7) Moderate protein-calorie malnutrition (HCC) Myriam Holt MD - 12/25/2017 10:08 AM PSTFormatting of this note might be different from e original. [facility] Progress Note 12/25/2017 Admit Date: 12/23/2017 Hospital Day: 2 Attending Physician: Dr. Marbin Espinoza 24 Hour Events/ Subjective: -transferred to [facility] from intensive care -"take out my [...] 15 oz) (12/23/172) Physical Exam: General: pleasant lia-knqbo-yjyixhqqg woman lying in bed in no acute [...] oral BID Microbiology: 12/23 blood culture at [facility] gram negative bacilli NGTD 12/23 blood cultures here Imaging: No new imaging Hospital problem list: Patient Active Problem List Diagnosis Date Noted Bacteremia due to Gram-negative bacteria 12/24/2017 Priority: 1 JULY (acute kidney injury) (HCC) 12/24/2017 Priority: 2 Cholangiocarcinoma (HCC) 04/27/2012 Priority: 3 Overview Note: -Diagnosed 2012. Followed by Dr. Ragland at [facility] in [place]. -04/26/2012: R0 Resection. -05/31/2012-09/03/2012 Chemotherapy: Xeloda/gemictabine x4 [...] Maker Primary Surrogate Decision Maker Poncho Oquendo [phone] Patient will be staffed with my attending physician, Dr. Marbin Espinoza, within 24 hours. Myriam Holt MD 12/25/2017 PGY1 physician [id number] Associated attestation - Marbin Espinoza MD - 12/25/2017 7:16 PM PSTI agree with bita carmen resident note. For additional information, please refer to my note from today's date. Marbin Espinoza MD Clinical Hospitalist & Medical Teaching Services [facility] Pager [phone] Smitha Paul MD - 12/24/2017 11:28 AM PSTFormatting of this note might be different fro m the original. MICU Attending Note Admission Date: 12/23/2017 Length of stay: 1 days ID: Aura Upton is a 57 y.o. female with metastatic cholangiocarcinoma (on palliative chemotherapy with gemcitabine/cisplatin q3wk) admitted to the MICU from [place] for suspec ashley septic shock. Present on [...] lly ill. SMITHA PAUL MD [facility] [address] [place] [address] Brittany Crouch MD - 12/24/2017 6:14 AM PST [facility] MEDICAL ICU - PROGRESS NOTE Hospital Day: 1 | ICU Day: 1 ID/CC: Aura Upton is a 57 y.o. woman w/ metastatic cholangiocarcinoma (on palliative chemotherapy with gemcitabine/cisplatin q3wk) admitted to the MICU from [place] for suspe cted septic shock. Consultants: HIEN, [...] the duration of her hospital ization at [facility] and continued to have intermittent fevers and chills while she was there. S he was frustrated with [facility] because they would only send her to [...] gemcitabine/carboplatin q3wk) admitted to the MICU from [place] for suspected s eptic shock. Neurological # [...] Oquendo, Brittany Dean MD Anesthesiology PGY-1 p: [phone] 12/24/2017, 6:14 AM Template created by DERREK [...] (gemcitabine/carboplatin) for metastatic cholangiocarcinoma. Since arrival to [place] E D has received 4L fluid and [...] floor. Dagoberto Iniguez MD Pulmonary/Critical Care Medicine [phone] documented in this en counter Plan of [...] POC | | PST | ([facility]) | results section. | + +--------+ [...] POC | | PST | ([facility]) | results section. | + +--------+ + + + | CAPILLARY BLOOD | Routin | 12/27/2017 | Sepsis, due to | Results for this | | GLUCOSE (NO CHG), | e | 8:27 AM | unspecified organism | procedure are in the | | POC | | PST | ([facility]) | results section. | + +--------+ [...] POC | | PST | ([facility]) | results section. | + +--------+ + + + | CAPILLARY BLOOD | Routin | 12/26/2017 | Sepsis, due to | Results for this | | GLUCOSE (NO CHG), | e | 11:23 AM | unspecified organism | procedure are in the | | POC | | PST | ([facility]) | results section. | + +--------+ + + + | CAPILLARY BLOOD | Routin | 12/26/2017 | Sepsis, due to | Results for this | | GLUCOSE (NO CHG), | e | 10:12 AM | unspecified organism | procedure are in the | | POC | | PST | ([facility]) | results section. | + +--------+ [...] POC | | PST | ([facility]) | results section. | + +--------+ + + + | CAPILLARY BLOOD | Routin | 12/25/2017 | Sepsis, due to | Results for this | | GLUCOSE (NO CHG), | e | 1:41 PM | unspecified organism | procedure are in the | | POC | | PST | ([facility]) | results section. | + +--------+ [...] POC | | PST | ([facility]) | results section. | + +--------+ + + + | CAPILLARY BLOOD | Routin | 12/25/2017 | Sepsis, due to | Results for this | | GLUCOSE (NO CHG), | e | 12:31 AM | unspecified organism | procedure are in the | | POC | | PST | ([facility]) | results section. | + +--------+ [...] | + +--------+ + + + | [facility] LAB PORTAL / | Routin | 12/24/2017 [...] POC | | PST | ([facility]) | results section. | + +--------+ [...] KANNAN | [address] | [place], [place] | | | [facility]UN | [address] | [address] | | | TESTS | | | [...] + | GRAY - AIRPORT - | [address] | [place] [address] | | | [place] | | | | + + + [...] BRUNNER | [address] | [place], [place] | | | JOHN CONTE OF CARE | [address] | [address] | | | TESTS | | | [...] BRUNNER | [address] | [place], [place] | | | [facility] | [address] | [address] | | | TESTS | | | [...] | + + + + + | [facility] | [address] | [place] [address] | | | SERVICES, CORE | NEAL [...] | | | LABORATORY | | | [place] | | | SERVICES, | | | [...] + + + + | [facility] | [address] | [place] [address] | | | SERVICES, CORE | NEAL [...] + + + | GWEN BRUNNER | [address] | [place], [place] | | | [facility] | [address] | [address] | | | TESTS | | | [...] MARQUAM | [address] | [place], [place] | | | JOHN CONTE OF CARE | [address] | [address] | | | TESTS | | | [...] - KANNAN | [address] | [place], [place] | | | [facility] | [address] | [address] | | | TESTS | | | [...] | | | LABORATORY | | | [place] | | | SERVICES, | | | [...] equation recommended by the | [facility] | | National Kidney Disease Education [...] + + + + | [facility] | [address] | [place] [address] | | | SAM ALONSO | NEAL [...] 60 - 99 mg/dL | [facility] - | | | GLUCOSE, | [...] NAELAM | [address] | [place], [place] | | | [facility] | [address] | [address] | | | TESTS | | | [...] BRUNNER | [address] | [place], [place] | | | [facility] | [facility] | [address] | | | TESTS | | | [...] [facility] | [address] | [place] [address] | | | SERVICES, CORE | [address] [...] [facility] | [address] | [place] [address] | | | SERVICES, CORE | [address] | | | + + + + + CULTURE, BLOOD BACTI & YEAST [facility] (12/25/2017 7:18 AM PST) + + [...] | + + + + + | [facility] | [address] | [place] [address] | | | SERVICES, CORE | NEAL [...] [facility] | [address] | [place] [address] | | | SERVICES, CORE | [address] [...] + + + + | [facility] | [address] | [place] [address] | | | SERVICES, CORE | NEAL [...] | | | LABORATORY | | | [place] | | | SERVICES, | | | [...] | + + + + + | [facility] | [address] | [place] [address] | | | SERVICES, CORE | NEAL [...] MARQUAM | [address] | [place], [place] | | | DG POINT OF CARE | [address] | [address] | | | TESTS | | | [...] + | [facility] | [address] | [place], [place] | | | DG [facility] | [facility] | [address] | | | TESTS | | | [...] | + + + + + | [facility] | [address] | [place] [address] | | | SERVICES, CORE [...] [facility] | [address] | [place] [address] | | | SERVICES, CORE | [address] [...] [facility] | [address] | [place] [address] | | | SERVICES, SAM | [address] [...] + + + + | [facility] | [address] | [place] [address] | | | [facility] | [address] | | | + [...] At | + + + | EXAM: AR CHEST 1 VIEW HISTORY: fever COMPARISON: Outside [...] Interface - 12/24/2017 1:05 PM PST EXAM: AR CHEST 1 | | VIEW HISTORY: fever [...] | + + + + + | [facility] | [address] | [place] [address] | | | SERVICES, CORE | NEAL [...] | + + + + + | [facility] | [address] | [place] [address] | | | SERVICES, CORE | PARK [...] | + + + + + | [facility] | [address] | [place] [address] | | | SERVICES, CORE | NEAL [...] | | | LABORATORY | | | [place] | | | SERVICES, | | | [...] | + + + + + | [facility] | [address] | [place] [address] | | | SERVICES, SAM | NEAL [...] [facility] | [address] | [place] [address] | | | SERVICES, CORE | NEAL [...] DEPT OF | [address] | [place], [place] | | | CARDIOLOGY | [address] | [address] | | + + + + + [...] BRUNNER | [address] | [place], [place] | | | DG POINT OF CARE | [address] | [address] | | | TESTS | | | [...] [facility] | [address] | [place] [address] | | | SERVICES, CORE | [address] [...] [facility] | [address] | [place] [address] | | | SERVICES, CORE | [address] [...] [facility] | [address] | [place] [address] | | | SERVICES, CORE | P[address] [...] [facility] | [address] | [place] [address] | | | SERVICES, CORE | P[address] [...] [facility] | [address] | [place] [address] | | | SERVICES, | [address] [...] [facility] | [address] | [place] [address] | | | SERVICES, | [address] [...] + + | [facility] | [address] | [place] [address] | | | SERVICES, CORE | NEAL [...] | | | LABORATORY | | | [place] | | | SERVICES, | | | [...] equation recommended by the | [facility] | | National Kidney Disease Education [...] + + + + | [facility] | [address] | [place] [address] | | | SAM ALONSO | NEAL [...]
--- OUTSIDE RECORDS SUMMARY | ~2019-07-09 | XMS | Encounter Summary ---
Demographics + + + | Address | [address] | | | [place] [address] | + + + | Home Phone [...] | Author | [facility] | | | and [place] | + + + | Organization | [facility] | | | and Eduardo[place] | + + + | Address | Unknown | + + + | Phone | Unavailable | + + + Support + + + + + | Name | Relationship | Address | Phone | + + + + + | Poncho Oquendo | ECON | [address] | | | | | [facility] [place] [place] | | | | | [address] | | + + + + + | Marta Upton | ECON | [place], [place] | | | | | [address] | | + + + + + Care Team Providers + +------+ + | Care Computer Education Professor Name | Role | Phone | + +------+ + | No, Physician | PCP | Unavailable | + +------+ + Encounter Details +--------+ + + + + | Date | Type | Department | Care Team | Description | +--------+ + + + + | 09/17/ | Hospital | [facility] | | | | 2013 | Encounter | MED CTR XRAY [address] | | | | | | [address] [place] | | | | | | [place] [address] | | | | | | [phone] | | | +--------+ + + + [...] | | | | | [place] [address] | | | | | | [phone] | | | | | | | | +--------+---------+ + + + documented as of this encounter Visit Diagnoses Not on filedocumented in this encounter"
--- OUTSIDE RECORDS SUMMARY | ~2019-07-09 | XMS | Encounter Summary ---
Demographics + + + | Address | [address] | | | [place] [address] | + + + | Home Phone [...] Providers + +------+ + | Care Product Managent Intern Name | Role | Phone | + +------+ + | Valeriy Carmona MD | PCP | | + +------+ + Encounter Details +--------+ + + + + | Date | Type | Department | Care Team | Description | +--------+ + + + + | 04/07/ | Telephone | [facility] | Tai Stanton, | | | 2012 | | [facility] [address] | [address] | | | | | [address] | [address] | | | | | Mailcode: Center | [place], [place] | | | | | for Health and | [address] | | | | | Healing, Building [address] | [phone] | | | | | [place], [place] | | | | | | [address] | | | | | | [phone] | | | +--------+ + + + [...]
--- OUTSIDE RECORDS SUMMARY | ~2019-07-09 | XMS | Encounter Summary ---
Demographics + + + | Address | [address] | | | [place] [address] | + + + | Home Phone [...] Providers + +------+ + | Care Manager Sharepoint Name | Role | Phone | + +------+ + | Tomasa Wagner | PCP | | + +------+ + Reason for Visit + + + | Reason | Comments | + + + | Medical Records | [facility] Progress Notes 09/25/2013 [...] | | 2013 | | Center at [facility] [address] | [address] | Review ([facility] | | | | [address] | [address] | OUTSIDE REOCRDS: | | | | Mailcode: Center | [place], [place] | Progress Notes | | | | for Health and | [address] | 09/25/2013 (f/u | | | | Healing, Building [address] | [phone] | chemo/radiation | | | | [place], [place] | | therapy for | | | | [address] | | cholangiocarcinoma) | | | | [phone] | | & IMAGING REPORT | | [...]
--- OUTSIDE RECORDS SUMMARY | ~2019-07-09 | XMS | Encounter Summary ---
Demographics + + + | Address | [address] | | | [place] [address] | + + + | Home Phone [...] Author | [facility] | | | and Eduardoana | + + + | Organization | [facility] | | | and Eduardoana | + + + | Address | Unknown | + + + | Phone | Unavailable | + + + Support + + + + + | Name | Relationship | Address | Phone | + + + + + | Poncho Oquendo | ECON | [address] | | | | | [place] | | | | | [address] | | + + + + + | Marta Upton | ECON | [place] | | | | | [address] | | + + + + + Care Team Providers + +------+ + | Care Station Installation Supervisor Name | Role | Phone | [...] 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, | [address]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 | MD [address] | [place], | | | | | (HCC) | [address] | [place] [address] | | | | | Procedures | [place], | Phone: | | | | | [place] INJ | [place] [address] | [phone] | | | | | PEMBROLIZUMA | Phone: | Fax: | | | | | B, 1MG [place] | [phone] | [phone] | | | | | NORMAL | Fax: | | | | | | SALINE | [phone] | | | | | | SOLUTION | | | | | | | INFUS, 500 | | | | | | | ML IN | | | | | | | NORMAL | | | | | | | SALINE | | | | | | | SOLUTION | | | | | | | INFUS, 250 | | | | | | | ML IN | | | | | | | STERILE | | | | | | | WATER/SALINE | | | | | | | , 10 ML IN | | | | | | | CHEMOTHER, | | | | | | | IV PUSH,EA | | | | | | | ADD DRUG IN | | | | | | | CHEMOTHER, | | | | | | | IV INFUSION, | | | | | | | 1 HR IN | | | | | | | CHEMOTHER, | | | | | | | IV INFUSION, | | | | | | | EA HR IN | | | | | | | CHEMOTHER,NO | | | | | | | N-HORMONE | | | | | | | ANTI-NEOPL, | | | | | | | SUB-Q/IM IN | | | | | | [...] + + | 02/02/ | Hospital | [facility] | Reinaldo, | Gallbladder cancer, | | 2017 | Encounter | MED CTR CHEMO | Epifanio Soler MD [address] | carcinoma (HCC) | | | | INFUSION [address] | [address] [place] | | | | | [address] [place], | [place] [address] | | | | | [place] [address] | [phone] | | | | | [phone] | | | +--------+ + + + [...] [address] | | | | | | [place] [address] | | | | | | [phone] | | | | | | | [...] + + | Performed at: 01 - [facility] [address], | REFERENCE LAB | | [place], [place] [id number] Food Bagging Machine Operator: Ad Larose MD, Phone: | [facility] | | [phone] | | + + + + + + + + | Performing | Address | City/State/Zipcode | Phone Number | | Organization | | | | + + + + + | REFERENCE LAB | [address] | [place], [place] | [phone] | | [facility] | [place] | [address] | | + + + + + [...] [address] | [place] | [phone] | | [facility] | | [address] | | | - LABORATORY | | [...] [address] | [place] | [phone] | | [facility] | | [address] | | | - LABORATORY | | [...] 1.47 (H) | 0.60 - 1.30 | [facility] | | | | | [...] | | MEDICAL | | | | mL/min/1.09d9Qhgs than | | CENTER - | | [...] + | [address] | [address] | [place] | [phone] | | [facility] | | [address] | | | - LABORATORY | | [...] + | [address] | [address] | [place] | [phone] | | [facility] | | [address] | | | - LABORATORY | | [...] [address] | [place] | [phone] | | [facility] | | [address] | | | - LABORATORY | | [...]
--- OUTSIDE RECORDS SUMMARY | ~2019-07-09 | XMS | Encounter Summary ---
Demographics + + + | Address | [address] | | | [place] [address] | + + + | Home Phone [...] | Author | [facility] | | | and Eduardoana | + + + | Organization | [facility] | | | and Eduardoana | + + + | Address | Unknown | + + + | Phone | Unavailable | + + + Support + + + + + | Name | Relationship | Address | Phone | + + + + + | Poncho Oquendo | ECON | [address] | | | | | [facility] [place] | | | | | [address] | | + + + + + | Marta Upton | ECON | [place], [place] | | | | | [address] | | + + + + + Care Team Providers + +------+ + | Care Ceramic Research Engineer Name | Role | Phone | [...] [place] | | | | | [address] [place] | [place] [address] | | | | | [place] [address] | [phone] | | | | | [phone] | | | +--------+ + + + [...] [address] | | | | | | [place] [address] | | | | | | [phone] | | | | | | | | +--------+---------+ + + + documented as of this encounter Visit Diagnoses Not on filedocumented in this encounter"
--- OUTSIDE RECORDS SUMMARY | ~2019-07-09 | XMS | Encounter Summary ---
Demographics + + + | Address | [address] | | | [place] [address] | + + + | Home Phone [...] Providers + +------+ + | Care Rn Radiation Name | Role | Phone | + [...] cancer | [address] | [address] [facility] | | | | | ([facility]) | [facility] | | | | | Procedures | Rd | Rd [place], | | | | | REQUEST TO | [place], [place] | [place] | | | | | SURGERY | [address] | [address] | | | | | COMMUTATOR REPAIRER | Phone: | Phone: | | | | | MS RESEC | [phone] | [phone] | | | | | LIVER,PART | Fax: | Fax: | | | | | LOBECTOMY | [phone] | [phone] | | | | | MS REMOVE | | | | | | | ABD LYMPH | | | | | | | NODES RAD | | | | | | | REGNL MS | | | | | | [...] | | | | CT CHEST, | [place], [place] | 10th Floor | | | | | ABDOMEN & | [address] | [place], [place] | | | | | PELVIS W IV | Phone: | [phone] | | | | | CONTRAST | [phone] | Phone: | | | | | [address], [address] | Fax: | [phone] | | | | | | [phone] | Fax: | | | | | | | [phone] | +--------+--------+ + + + + Reason [...] | | | | | cancer | [facility] | [address] | | | | | (HCC) | SURGICAL | [facility]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 | CLINIC [address] | [address] [place], | | | | | ca | [address] | [place] | | | | | | AVE | [address] | | | | | | OBED, | Phone: | | | | | | [place] [address] | [phone] | | | | | | Phone: | Fax: | | | | | | [phone] | [phone] | | | | | | Fax: | | | | | | | [phone] | | +--------+--------+ + + + + Encounter Details +--------+---------+ + + + | Date | Type | Department | Care Team | Description | +--------+---------+ + + + | 04/12/ | Office | Digestive Health | Tai Stanton, | Gallbladder cancer | | 2012 | Visit | [place] at [facility] [address] | [address] | (HCC) (Primary Dx) | | | | [address] | Surendra Carreon | | | | | Mailcode: [place] | [place], [place] | | | | | [facility] and | [address] | | | | | [facility] 2 | [phone] | | | | | [place], [place] | | | | | | [address] | | | | | | [phone] | | | +--------+---------+ + + + [...] - 04/12/2012 5:30 PM PSTPATIENT SURGERY INFORMATION [facility] General Surgery Office Toll-free: ext [phone] Surgery Date: April 28, 2012 Procedure: Segment [...] from anyone by 7 pm please call [phone]. PARKING Parking for patients is available underneath the [facility] building. Parking is also available in the [facility] Parking structure located across from the emergency depart ment; patient parking available on level 1 and 3. Metered parking is available on the top evel. CHECKING IN FOR SURGERY Hospital Admission (in-patient): Admitting Desk 9th floor of [facility] TRANSPORTATION Day Surgery: If you [...] Please notify the general surgery office at [phone] as soon as possible should you nee [...] prior to your surgery. PRODUCTS CONTAINING ASPIRIN Winsome-Newbury, Anacin, Anexsia with Codeine, Andynos, Aspirin, Aspirin suppositories, Ascrip tin, Aspergum, Axotal, B-A-C, Baby Aspirin, Mahad, BC Powder, Bexophene, Buffaprin, Bufferin , Buffinol, Cama-Arthritis Strength, Congespirin, Albany, Coricidin, Damason, Darvon, Dristan, Elen-Gesic, Digel, Dolprin #3 Tablets, Donatab, Doxaphene, Duragesic, Easprin, Ecotrin, Emag rin Forte, Emiprin, Emprazil, Equagesic, Equazine M, Excedrin, Fiogesic, Fiorgen PH, Fiorice t, Fiorinal, 4-Way Cold Tablet Gemnisyn, Indocin, Liquprin, Lortab ASA, Magnaprin, Marnal, Meprobamate, Midol, Momentum, N orgesic, Sumner, Orphengesic, Pabalate, P-A-C, Percodan, Presalin, Robaxasil, Roxiprin, Cruz eto, Salocol SK-65 Compound, Sine-Aid, Sine-Off,, Bannock, Supac, Talwin Compound, Trigesic, Tolectin , Traiminicin, Vanquish, ZORprin, Zomax PRODUCTS CONTAINING IBUPROFEN Advil, Aleve, Haltran, Medipren, Midol, Motrin, Naproxyn, Nuprin, Rufen OTHER PRODUCTS WHICH MAY PROMOTE BLEEDING Vitamin E, Gingko Biloba, Marine Fatty Acids, Bellevue-3 Fish Oil SupplementsElectronically si gned by Amy Dinh RN at 04/12/2012 5:31 PM PST documented in this encounter Progress Notes Tai Stanton MD - 04/18/2012 11:09 AM PSTI saw and evaluated the patient. I agree with the findings and the plan of care as documented in the resident s note. Tai Stnaton M.D. Counts Include [address] At [facility] [employer] ([facility]) Professor and Vice-Waste Examiner of Surgery The Shahriar Nava Chair for Pancreatic Disease Research Pancreatic/ HepatoBiliary and Foregut Working Groups Mail Code [id number] [address] [place], [place]. [address] email: [email or web address] Mackenzie Troy MD - 04/12/2012 6:05 PM PST ID: Aura Upton CC: Referral for treatment of gall-bladder cancer found post lap analy HPI: Mrs Upton is a 51yo woman w/ h/o chronic back pain who is being referred by her georgina geon at [facility] for incidental finding gallbladder mass [...] had a la paroscopic Cholecystectomy performed at [facility] which confirmed 3 gallstones an d an [...] Latest Range: 0.60-1.10 mg/dL 0.70 EGFR - BAHRAINI No range found >60 EGFR NON -BAHRAINI No range found >60 GLUCOSE, PLASMA (LAB) [...] Farr MD Chief Resident Department of Surgery [facility] documented in this en counter [...] | | + +---------+ + + | [facility] DEPARTMENT OF | | | [...] by | | | | | | [address] | | | | | | Lavonne James, [facility] | | | | | | [address] | | | | | | [email or web address]. | | | | | [...] + + | [facility] | [address] [facility] | [place], [place] | | | UN[facility] | | [address] | | + + + + + [...] | | | | | | Way, [facility] [place] [address] | | | | | | [phone]. 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
--- OUTSIDE RECORDS SUMMARY | ~2019-07-09 | XMS | Encounter Summary ---
Demographics + + + | Address | [address] | | | [place] [address] | + + + | Home Phone [...] Providers + +------+ + | Care Raw Cheese Worker Name | Role | Phone | + +------+ + PCP | Unavailable | + +------+ + Encounter Details +--------+ + + + + | Date | Type | Department | Care Team | Description | +--------+ + + + + | 04/07/ | Stem Roller Operator | Digestive Health | Tai Stanton, | Gallbladder cancer | | 2012 | | [place] at [facility] [address] | [address] [facility] | (HCC) (Primary Dx) | | | | [address] | Surendra Carreon | | | | | Mailcode: Center | [place], [place] | | | | | [facility] and | [address] | | | | | Healing, Building 2 | [phone] | | | | | [place], [place] | | | | | | [address] | | | | | | [phone] | | | +--------+ + + + [...] Blue | | | | | | [facility], | | | | | | [facility] [place] | | | | | | Lab,[place], [place] | | | | | | [id number] Accession | | | | | | Number: [id number] | | | | | | Collection [...] | + + + + + | [facility] | [address] [facility] | [place] [address] | | | PATHOLOGY | [address] | | | + + + + + documented in this encounter Visit Diagnoses + + | Diagnosis | + + | 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
--- OUTSIDE RECORDS SUMMARY | ~2019-07-09 | XMS | Encounter Summary ---
Demographics + + + | Address | [address] | | | [place] [address] | + + + | Home Phone [...] | Author | [facility] | | | and Eduardoana | + + + | Organization | [facility] | | | and Eduardoana | + + + | Address | Unknown | + + + | Phone | Unavailable | + + + Support + + + + + | Name | Relationship | Address | Phone | + + + + + | Poncho Oquendo | ECON | [address] | | | | | [facility] [place] | | | | | [address] | | + + + + + | Marta Upton | ECON | [place], [place] | | | | | [address] | | + + + + + Care Team Providers + +------+ + | Care Cellophane Bath Mixer Name | Role | Phone | + +------+ + | No, Physician | PCP | Unavailable | + +------+ + Encounter Details +--------+ + + + + | Date | Type | Department | Care Team | Description | +--------+ + + + + | 04/26/ | Hospital | [facility] | Pedro Green, | | | 2019 | Encounter | REGIONAL SURGERY | DO [address] | | | | | CENTER INTRA OP | [place] [address] | | | | | [address] | [phone] | | | | | [place], [place] | | | | | | [address] | | | | | | [phone] | | | +--------+ + + + [...] [address] | | | | | | [place] [address] | | | | | | [phone] | | | | | | | [...]
--- OUTSIDE RECORDS SUMMARY | ~2019-07-09 | XMS | Encounter Summary ---
Demographics + + + | Address | [address] | | | [place] [address] | + + + | Home Phone [...] Author | [facility] | | | and Eduardoana | + + + | Organization | [facility] | | | and Eduardoana | + + + | Address | Unknown | + + + | Phone | Unavailable | + + + Support + + + + + | Name | Relationship | Address | Phone | + + + + + | Poncho Oquendo | ECON | [address] | | | | | [facility], [place] | | | | | [address] | | + + + + + | Marta Upton | ECON | [place], [place] | | | | | [address] | | + + + + + Care Team Providers + +------+ + | Care Flatbed Stitcher Name | Role | Phone | + +------+ + PCP | Unavailable | + +------+ + Encounter Details +--------+ + + + + | Date | Type | Department | Care Team | Description | +--------+ + + + + | 09/01/ | Hospital | [facility] | | | | 2012 - | Encounter | MED CTR XRAY [address] | | | | | | [address] | | | | 09/13/ | | [place] [address] | | | | 2012 | | [phone] | | | +--------+ + + + [...] [address] | | | | | | [place] [address] | | | | | | [phone] | | | | | | | [...] + | [facility] | [address] | [place], [place] | [phone] | | [facility] | | [address] | | | - LABORATORY | | | | + + + + + | [facility] | [address] | [place], [place] | | | [facility] | | [address], [facility] | | | - LABORATORY [...] | | | | [address], [place], [place] | | | | | | [address] CLIA: | | | | | | [id number] | | | | + + + + + + + + | Specimen | + + | | + + + + + + + | Performing | Address | City/State/Zipcode | Phone Number | | Organization | | | | + + + + + | [facility] | [address] | [place] | [phone] | | [facility] | | [address] | | | - LABORATORY | | | | + + + + + | [facility] | [address] | [place], [place] | | | [facility] | | [address] | | | - LABORATORY [...] + | [facility] | [address] | [place], [place] | [phone] | | [facility] | | [address] | | | - LABORATORY | | | | + + + + + | [facility] | [address] | [place] | | | [facility] | | [id number] [place] [address] | | | - LABORATORY | | [...] [address] | [place] | [phone] | | [facility] | | [address] | | | - LABORATORY | | | | + + + + + | [facility] | [address] | [place] | | | [facility] | | [address] | | | - LABORATORY [...] + | [facility] | [address] | [place] | [phone] | | [facility] | | [address] | | | - LABORATORY | | | | + + + + + | [facility] | [address] | [place] | | | [facility] | | [address] | | | - LABORATORY [...] | | | | [address], [place], [place] | | | | | | [address] CLIA: | | | | | | [id number] | | | | + + + + + + + + | Specimen | + + | | + + + + + + + | Performing | Address | City/State/Zipcode | Phone Number | | Organization | | | | + + + + + | [facility] | [address] | [place], [place] | [phone] | | [facility] | | [address] | | | - LABORATORY | | | | + + + + + | [facility] | [address] | [place] | | | [facility] | | [address] | | | - LABORATORY [...] + | [facility] | [address] | [place], [place] | [phone] | | [facility] | | [address] | | | - LABORATORY | | | | + + + + + | [facility] | [address] | [place], [place] | | | [facility] | | [address], [facility] | | | - LABORATORY [...] + | [facility] | [address] | [place] | [phone] | | [facility] | | [address] | | | - LABORATORY | | | | + + + + + | [facility] | [address] | [place] | | | [facility] | | [address] | | | - LABORATORY | | | | + + + + + documented in this encounter Visit Diagnoses Not on filedocumented in this encounter"
--- OUTSIDE RECORDS SUMMARY | ~2019-07-09 | XMS | Encounter Summary ---
Demographics + + + | Address | [address] | | | [place] [address] | + + + | Home Phone [...] Team Providers + +------+ + | Care Winder Contort Operator Name | Role | Phone | [...] 09/29/ | Abstract | [facility] | StantonTai davis, | Medical Records | | 2012 | | Center at [address] | [address] [facility] | Review (US abd ) | | | | [address] | Su[address] Carreon | | | | | Mailcode: [place] | [place], [place] | | | | | [facility] and | [address] | | | | | [facility] 2 | [phone] | | | | | [place], [place] | | | | | | [address] | | | | | | [phone] | | | +--------+ + + + [...]
--- OUTSIDE RECORDS SUMMARY | ~2019-07-09 | XMS | Encounter Summary ---
Demographics + + + | Address | [address] | | | [place] [address] | + + + | Home Phone [...] Author | [facility] | | | and Eduardoana | + + + | Organization | [facility] | | | and Eduardoana | + + + | Address | Unknown | + + + | Phone | Unavailable | + + + Support + + + + + | Name | Relationship | Address | Phone | + + + + + | Poncho Oquendo | ECON | [address] | | | | | [facility], [place] | | | | | [address] | | + + + + + | Marta Upton | ECON | [place], [place] | | | | | [address] | | + + + + + Care Team Providers + +------+ + | Care Nursing Home Director Name | Role | Phone | + +------+ + PCP | Unavailable | + +------+ + Encounter Details +--------+ + + + + | Date | Type | Department | Care Team | Description | +--------+ + + + + | 07/13/ | Hospital | [facility] | | | | 2012 - | Encounter | MED CTR CANCER | | | | | | CENTER [address] | | | | 07/14/ | | [place] | | | | 2012 | | [address] | | | | | | [phone] | | | +--------+ + + + [...] [address] | | | | | | [place] [address] | | | | | | [phone] | | | | | | | [...] ST. | [address] | [place], [place] | [phone] | | [facility] | | [address] | | | - LABORATORY | | | | + + + + + | [facility] | [address] | [place] | | | [facility] | | [address] [place] [address] | | | - LABORATORY | | [...] [address] | [place] | [phone] | | [facility] | | [address] | | | - LABORATORY | | | | + + + + + | [facility] [facility] | [address] | [place] | | | [facility] | | [address] | | | - [...] ST. | [address] | [place] | [phone] | | [facility] | | [address] | | | - LABORATORY | | | | + + + + + | [facility] | [address] | [place], [place] | | | [facility] | | [address] | | | - LABORATORY [...] [address] | [place] | [phone] | | [facility] | | [address] | | | - LABORATORY | | | | + + + + + | [facility] | [address] | [place] | | | [facility] | | [address] | | | - [...] | >60Comment: For | >60 mL/min/A | [facility] | | | GFR | -Americans, | [...] [address] | [place] | [phone] | | [facility] | | [address] | | | - LABORATORY | | | | + + + + + | [facility] | [address] | [place] | | | [facility] | | [address], [facility] | | | - [...] ST. | [address] | [place], [place] | [phone] | | [facility] | | [address] | | | - LABORATORY | | | | + + + + + | [facility] | [address] | [place], [place] | | | [facility] | | [facility], [facility] | | | - [...] [address] | [place] | [phone] | | [facility] | | [address] | | | - LABORATORY | | | | + + + + + | [facility] | [address] | [place] | | | [facility] | | [address], [facility] | | | - [...] | >60Comment: For | >60 mL/min/A | [facility] | | | GFR | -Americans, | [...] ST. | [address] | [place] | [phone] | | [facility] | | [address] | | | - LABORATORY | | | | + + + + + | [facility] [facility] | [address] | [place], [place] | | | [facility] | | [address], [facility] | | | - [...] ST. | [address] | [place] | [phone] | | [facility] | | [address] | | | - LABORATORY | | | | + + + + + | [facility] | [address] | [place] | | | [facility] | | [address], [facility] | | | - LABORATORY | | | | + + + + + documented in this encounter Visit Diagnoses Not on filedocumented in this encounter"
--- OUTSIDE RECORDS SUMMARY | ~2019-07-09 | XMS | Encounter Summary ---
Demographics + + + | Address | [address] | | | [place] [address] | + + + | Home Phone [...] Team Providers + +------+ + | Care Multicraft Operator Name | Role | Phone | [...] [address] | | | | | [facility] | [address] | | | | | [facility] and | [place] [address] | | | | | Healing [facility] | [phone] | | | | | [place], [place] | | | | | | [address] | | | | | | [phone] | | | +--------+ + + + [...]
--- OUTSIDE RECORDS SUMMARY | ~2019-07-09 | XMS | Encounter Summary ---
Demographics + + + | Address | [address] | | | [place] [address] | + + + | Home Phone [...] Providers + +------+ + | Care Restaurant Mgr Name | Role | Phone | [...] Plastics & | [address] | Pre-Operative | | | | Reconstructive | [place], | Examination (Primary | | | | Services at [facility] | [place] [address] | Dx); Perforation of | | | | [address] | [phone] | Nasal Septum | | | | Mailcode: CH5E | | | | | | [facility] | | | | | | and Healing, | | | | | | Building 1, 5th | | | | | | Floor [place], [place] | | | | | | [address] | | | | | | [phone] | | | +--------+---------+ + + + [...] take place on the hill at the [facility]: Surgeries scheduled in the [facility] (4 North): registration is located on the 4th floor of [facility] (Day Surgery). Surgeries scheduled in the [facility]: registration is located on the 9th floor. Surgeries scheduled in [facility]: registration is located on the 6th floor. Surgeries scheduled in the [facility]: registration is located i n the [facility] on the first floor. For surgeries scheduled to take place at the [facility] Health & Healing: registration is l [...] If you use specialized medical equipment at [facility], please check with your provider [...] Surgery Dept. of Otolaryngology/Head and Neck Surgery [facility] [email or web address], Prudencio Coello MD - 2008 12:34 [...] BTL Allergies: nkda Social History: Lives in [place]. Past smoking history, none now. No alcohol [...] wishes to sc hedule. Jose Olivia MD Casino Runner Facial Plastic and Reconstructive Surgery Department of Otolaryngology/Head and Neck Surgery [facility] Email - [email or web address] HISTORY: Clinic: Facial Plastic and Reconstructive Surgery [...] today. Photos obtained. She met with my maintenance scheduler maximo hirsch. Followup arranged for preop. Time spent with patient /family, reviewing studies/ recor ds 20 minutes, with >50 % of time spent in consultation and coordination of care. Virgilio Buck MD FACS Professor Facial Plastic and Reconstructive Surgery Dept. of Otolaryngology/Head and Neck Surgery [facility] tel fax email [email or web address] CURRENT PROBLEM LIST: Patient Active Problem List [...]
--- OUTSIDE RECORDS SUMMARY | ~2019-07-09 | XMS | Encounter Summary ---
Demographics + + + | Address | [address] | | | [place] [address] | + + + | Home Phone [...] Team Providers + +------+ + | Care Bible Worker Name | Role | Phone | [...] Mailcode: | | | | | | [place], [place] | [facility] | | | | | | [address] | for Health | | | | | | Phone: | and Healing, | | | | | | [phone] | Building 1, | | | | | | Fax: | 7th Floor | | | | | | [phone] | [place], [place] | | | | | | | [address] | | | | | | | Phone: | | | | | | | [phone] | | | | | | | Fax: | | | | | | | [phone] | +--------+--------+ + + + + Encounter Details +--------+---------+ + + + | Date | Type | Department | Care Team | Description | +--------+---------+ + + + | 05/17/ | Office | Hematology/Medical | Elva Grey, | Gallbladder cancer | | 2013 | Visit | Oncology at [facility] | [address] | (HCC) (Primary Dx); | | | | [address] | [address] | Post-operative pain | | | | Mailcode: CH7 | [place] [address] | | | | | [facility] | [phone] | | | | | and Healing, | | | | | | Building 1, | | | | | | Floor [place], [place] | | | | | | [address] | | | | | | [phone] | | | +--------+---------+ + + + [...] Narrative Pt has SO. Lives in [place]. 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 [...] and RT based on nomograms developed at [facility] based on SEER database. As there is no standard adjuvant regimen for this disease we have followed the regimen receloreto fitzgerald studied in the completed S0809 trial. This is Ward/Cap for 4 cycles, then restaging and chemoradiation with Cape as below: Capecitabine 750mg/m2 BID days 1-14 Gemcitabine 1000mg/m2 IV days 1,8 Every 21 days for 4 cycles Followed by: Capecitabine 665mg/m2 BID concurrent with RT She is currently only 3 weeks out from surgery and not yet ready for chemotherapy. She is from the [facility] and would like to get therapy closer to home. She states that she l oves closest to the [facility] and would like a referral to [...]
--- OUTSIDE RECORDS SUMMARY | ~2019-07-09 | XMS | Encounter Summary ---
Demographics + + + | Address | [address] | | | [place] [address] | + + + | Home Phone [...] + | Author | [facility] | | | and Eduardoana | + + + | Organization | [facility] | | | and Eduardoana | + + + | Address | Unknown | + + + | Phone | Unavailable | + + + Support + + + + + | Name | Relationship | Address | Phone | + + + + + | Poncho Oquendo | ECON | [address] | | | | | [facility] [place] | | | | | [address] | | + + + + + | Marta Corbin | ECON | [place], [place] | | | | | [address] | | + + + + + Care Team Providers + +------+ + | Care Renewable Energy Project Manager Name | Role | Phone | + +------+ + PCP | Unavailable | + +------+ + Encounter Details +--------+ + + + + | Date | Type | Department | Care Team | Description | +--------+ + + + + | 09/28/ | Hospital | [facility] | | | | 2012 | Encounter | MED CTR XRAY [address] | | | | | | [address] [place] | | | | | | [place] [address] | | | | | | [phone] | | | +--------+ + + + [...] [place] | | | | | | [place] [address] | | | | | | [phone] | | | | | | | [...] At | + + + | [facility] | [place] | | Department [address] [place] [address] | [facility] | | [ rep [address]] [ rep [facility] | | st zip] Signed | - IMAGING | | | | | Patient Name: AURA CORBIN Physician: | | | SHEP.20 : 1960 Age: 51 Sex: F Unit #: [id number] | | | Exam Date: 09/28/12 Location: [facility] | | | Report #: [id number] Page: | | | %(RAD)RES..mtdd.print.filter("pg") of %(RAD) | | | RES..mtdd.print.filter("tpg") | | | | | | Accession Number: [id number] | | | ABDOMINAL ULTRASOUND, 09/28/2012 CLINICAL [...] | | | demonstrates increased echogenicity, likely solar manufacturer's representative of fatty | | | infiltration. [...] Transcribed | | | Date/Time: 09/28/2012 12:53 Sustainability Coach: | | | <<Signature on File>> | | | Jj | | | MD Franck09/28/12 2019 <Electronically signed by Jj Juárez MD> | | | Jj Juárez MD 09/28/12 1230 Sustainability Coach: [employer] [facility] [employer] | | | Gxiutnsixnkmw50/15/13 9711 Tai Stanton MD | | | Tej Boyce DO | | + + + + + + + + | Performing | Address | City/State/Zipcode | Phone Number | | Organization | | | | + + + + + | [facility] | [address] | [place] | [phone] | | [facility] | | [address] | | | - IMAGING | | | | + + + + + XR Abdomen AP (09/28/2012 10:03 AM PDT) + + | Specimen | + + | | + + + + + | Narrative | Performed At | + + + | Accession Number: [id number] ABDOMINAL ULTRASOUND, | | | 09/28/2012 CLINICAL [...] demonstrates increased | | | echogenicity, likely solar manufacturer's representative of fatty infiltration. There is | [...] Transcribed | | | Date/Time: 09/28/2012 12:53 Sustainability Coach: | | | <<Signature on File>> | | | Jj | | | MD Franck09/28/12 2019 <Electronically signed by Jj Juárez MD> | | | Jj Juárez MD 09/28/12 1230 Sustainability Coach: [employer] [facility] [employer]jan | | | Fhnchcsymaauq76/15/13 1253 MD Tej Ramachandran, DO | | | | | + + + + + | Procedure Note | + + | Edmundo, Rad Results In - 07/07/2015 9:27 AM PDT Accession Number: [id number] | | ULTRASOUND, 09/28/2012 CLINICAL HISTORY: HISTORY [...] pancreas demonstrates increased | | echogenicity, likely solar manufacturer's representative of fatty infiltration. There is limited [...] MD>Jj Juárez MD 09/28/12 | | 1230Transcriptionist: [employer] Darvmforqabms98/15/13 1253BNusrat Holliday, | | DO | |There [...] 12:30 | |Transcribed Date/Time: 09/28/2012 12:53 | |Sustainability Coach: | | | | | | | |<<Signature on File>> | | | |Jj Juárez MD09/28/12 2019 | |<Electronically signed by Jj Juárez MD> | | | | | |Jj Juárez MD 09/28/12 1230 | |Sustainability Coach: [employer] Zohlwvljlhvnx21/15/13 1253 | | | | | |Tai Stanton MD | |Tej Boyce, DO | + + documented in this encounter Visit Diagnoses Not on filedocumented in this encounter
--- OUTSIDE RECORDS SUMMARY | ~2019-07-09 | XMS | Encounter Summary ---
Demographics + + + | Address | [address] | | | [place] [address] | + + + | Home Phone [...] Team Providers + +------+ + | Care Cafeteria Supervisor Name | Role | Phone | [...] | | Clinics at | [address] | Release | | | | [facility] | Road [address] | | | | | [facility] and | [place] [address] | | | | | Healing [address] | [phone] | | | | | [address] [facility] [place] | | | | | | [address] | | | | | | [phone] | | | +--------+ + + + [...]
--- OUTSIDE RECORDS SUMMARY | ~2019-07-09 | XMS | Encounter Summary ---
Demographics + + + | Address | [address] | | | [place] [address] | + + + | Home Phone [...] Author | [facility] | | | and Eduardoana | + + + | Organization | [facility] | | | and Eduardoana | + + + | Address | Unknown | + + + | Phone | Unavailable | + + + Support + + + + + | Name | Relationship | Address | Phone | + + + + + | Poncho Oquendo | ECON | [address] | | | | | [place] | | | | | [address] | | + + + + + | Marta Upton | ECON | [place] | | | | | [address] | | + + + + + Care Team Providers + +------+ + | Care Tip Cutter Name | Role | Phone | [...] | | ONCOLOGY CLINIC [address] | [facility] | | | | | [facility] | [place] [address] | | | | | [place] [address] | [phone] | | | | | [phone] | | | +--------+--------+ + + + [...] [address] | | | | | | [place] [address] | | | | | | [phone] | | | | | | | | +--------+---------+ + + + documented as of this encounter Visit Diagnoses + + | Diagnosis | + + | 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
--- OUTSIDE RECORDS SUMMARY | ~2019-07-09 | XMS | Encounter Summary ---
Demographics + + + | Address | [address] | | | [place] [address] | + + + | Home Phone [...] + | Author | [facility] | | | and Eduardoana | + + + | Organization | [facility] | | | and Eduardoana | + + + | Address | Unknown | + + + | Phone | Unavailable | + + + Support + + + + + | Name | Relationship | Address | Phone | + + + + + | Poncho Oquendo | ECON | [address] | | | | | [facility] [place] | | | | | [address] | | + + + + + | Marta Upton | ECON | [place], [place] | | | | | [address] | | + + + + + Care Team Providers + +------+ + | Care Rod Bending Machine Operator Name | Role | Phone | + +------+ + PCP | Unavailable | + +------+ + Encounter Details +--------+ + + + + | Date | Type | Department | Care Team | Description | +--------+ + + + + | 09/28/ | Hospital | [facility] | Hakan Cherry | | | 2011 | Encounter | MED CTR XRAY [address] | [address] | | | | | [place] | [place], [place] | | | | | [place] [address] | [address] | | | | | [phone] | | | +--------+ + + + [...] | Visit | | DO [address] [facility] | | | | | | [place] [address] | | | | | | [phone] | | | | | | | [...] Performed At | + + + | [facility] | [facility] | | [address] [facility] | [facility] | | 09/29/2011, LUMBAR FACET | DIAG [...] Transcribed Date/Time: | | | 09/30/2011 07:23 Lifeguard: <Electronically Signed | | | by Hakan Cherry MD> 10/01/11 0936 | | + + + + + | Procedure Note | + + | Edmundo, Rad Conversion - 03/23/2013 5:52 PM [facility] | | Diagnostic Imaging Department | | [address] [facility] | | | | | | | [...] | Transcribed Date/Time: 09/30/2011 07:23 | | Lifeguard: | | <Electronically Signed by Hakan Cherry MD> 10/01/11 0936 | + + + +---------+ + + | Performing | Address | City/State/Zipcode | Phone Number | | Organization | | | | + +---------+ + + | [place] | | | | | [facility] | | | | + +---------+ + + documented in this encounter Visit Diagnoses Not on filedocumented in this encounter"
--- OUTSIDE RECORDS SUMMARY | ~2019-07-09 | XMS | Encounter Summary ---
Demographics + + + | Address | [address] | | | [place] [address] | + + + | Home Phone [...] + | Author | [facility] | | | and Eduardoana | + + + | Organization | [facility] | | | and Eduardoana | + + + | Address | Unknown | + + + | Phone | Unavailable | + + + Support + + + + + | Name | Relationship | Address | Phone | + + + + + | Poncho Oquendo | ECON | [address] | | | | | [facility], [place] | | | | | [address] | | + + + + + | Marta Upton | ECON | [place] | | | | | [address] | | + + + + + Care Team Providers + +------+ + | Care Transformer Tester Name | Role | Phone | [...] + + | 05/20/ | Telephone | [facility] | Reinaldo, | Care Coordination | | 2020 | | [facility] | Epifanio Soler MD [address] | | | | | ONCOLOGY CLINIC [address] | [facility] | | | | | [facility] | [place] [address] | | | | | [place] [address] | [phone] | | | | | [phone] | | | +--------+ + + + [...] | | | | | [place] [address] | | | | | | [phone] | | | | | | | | +--------+---------+ + + + documented as of this encounter Visit Diagnoses Not on filedocumented in this encounter"
--- OUTSIDE RECORDS SUMMARY | ~2019-07-09 | XMS | Encounter Summary ---
Demographics + + + | Address | [address] | | | [place] [address] | + + + | Home Phone [...] Author | [facility] | | | and Eduardoana | + + + | Organization | [facility] | | | and Eduardoana | + + + | Address | Unknown | + + + | Phone | Unavailable | + + + Support + + + + + | Name | Relationship | Address | Phone | + + + + + | Poncho Oquendo | ECON | [address] | | | | | [place] | | | | | [address] | | + + + + + | Marta Upton | ECON | [place] | | | | | [address] | | + + + + + Care Team Providers + +------+ + | Care Sweat Band Sewer Name | Role | Phone | + [...] | Personal | Reinaldo, | [address] [place] | | | | | 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, | [place], | | | | | 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 [address] | [place] [address] | | | | | neoplasm of | [address] | Phone: | | | | | other site | [place], | [phone] | | | | | in | [place] [address] | Fax: | | | | | gastrointest | Phone: | [phone] | | | | | inal tract | [phone] | | | | | | Procedures | Fax: | | | | | | CT Abdomen | [phone] | | | | | | Pelvis [...] | Personal | Reinaldo, | [address] [place] | | | | | 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, | [place], | | | | | 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 [address] | [place] [address] | | | | | neoplasm of | [address] | Phone: | | | | | other site | [place], | [phone] | | | | | in | [place] [address] | Fax: | | | | | gastrointest | Phone: | [phone] | | | | | inal tract | [phone] | | | | | | Procedures | Fax: | | | | | | CT Abdomen | [phone] | | | | | | Pelvis w | | | | | | | Contrast | | | +--------+--------+ + + + + Encounter Details +--------+ + + + + | Date | Type | Department | Care Team | Description | +--------+ + + + + | 09/16/ | Hospital | [facility] | Reinaldo, | Personal history of | | 2014 | Encounter | MED CTR CT [address] | Epifanio Soler MD [address] | malignant neoplasm | | | | [place], | [address] [place] | of other site in | | | | [place] [address] | [place] [address] | gastrointestinal | | | | [phone] | [phone] | tract | | | | | [...] [place] | | | | | | [place] [address] | | | | | | [phone] | | | | | | | [...]
--- OUTSIDE RECORDS SUMMARY | ~2019-07-09 | XMS | Encounter Summary ---
Demographics + + + | Address | [address] | | | [place] [address] | + + + | Home Phone [...] Team Providers + +------+ + | Care Crane Oiler Name | Role | Phone | + [...] | | | Reconstructive | Velma [place], | Septal Defect | | | | Services at [facility] | [place] [address] | | | | | [address] | [phone] | | | | | Mailcode: CH5E | | | | | | [facility] | | | | | | and Healing, | | | | | | Building 1, | | | | | | Floor [place], [place] | | | | | | [address] | | | | | | [phone] | | | +--------+---------+ + + + [...] Surgery Dept. of Otolaryngology/Head and Neck Surgery [employer] [facility] [employer] [email or web address] documented in this encounte [...]
--- OUTSIDE RECORDS SUMMARY | ~2019-07-09 | XMS | Encounter Summary ---
Demographics + + + | Address | [address] | | | [place] [address] | + + + | Home Phone [...] Team Providers + +------+ + | Care Trim Machine Adjuster Name | Role | Phone | [...] [facility] [address] | [address] | | | | | [address] | [address] | | | | | Mailcode: Center | [place], [place] | | | | | [facility] Health and | [address] | | | | | [facility] 2 | [phone] | | | | | [place], [place] | | | | | | [address] | | | | | | [phone] | | | +--------+ + + + [...]
--- OUTSIDE RECORDS SUMMARY | ~2019-07-09 | XMS | Encounter Summary ---
Demographics + + + | Address | [address] | | | [place] [address] | + + + | Home Phone [...] Team Providers + +------+ + | Care Supermarket Manager Name | Role | Phone | + +------+ + | Tomasa Wagner | PCP | | + +------+ + Encounter Details +--------+ + + + + | Date | Type | Department | Care Team | Description | +--------+ + + + + | 10/02/ | Abstract | Digestive Health | Tai Stanton, | | | 2012 | | Notrees at [facility] [address] | [address] | | | | | [address] | [address] | | | | | Mailcode: Center | [place], [place] | | | | | [facility] and | [address] | | | | | Healing, Building [address] | [phone] | | | | | [place], [place] | | | | | | [address] | | | | | | [phone] | | | +--------+ + + + [...]
--- OUTSIDE RECORDS SUMMARY | ~2019-07-09 | XMS | Encounter Summary ---
Demographics + + + | Address | [address] | | | [place] [address] | + + + | Home Phone [...] Team Providers + +------+ + | Care Liquified Natural Gas Specialist Name | Role | Phone | [...] 2012 | | Oncology at [facility] | [address] | Request | | | | [address] [facility] | [facility] [address] | | | | | Mailcode: CH7M | [place] [address] | | | | | [facility] | [phone] | | | | | and Brittny, | | | | | | [facility] | | | | | | [place], [place] | | | | | | [address] | | | | | | [phone] | | | +--------+ + + + [...]
--- OUTSIDE RECORDS SUMMARY | ~2019-07-09 | XMS | Encounter Summary ---
Demographics + + + | Address | [address] | | | [place] [address] | + + + | Home Phone [...] Author | [facility] | | | and Eduardoana | + + + | Organization | [facility] | | | and Eduardoana | + + + | Address | Unknown | + + + | Phone | Unavailable | + + + Support + + + + + | Name | Relationship | Address | Phone | + + + + + | Poncho Oquendo | ECON | [address] | | | | | [place] | | | | | [address] | | + + + + + | Marta Upton | ECON | [place] | | | | | [address] | | + + + + + Care Team Providers + +------+ + | Care Credit Union Examiner Name | Role | Phone | [...] | | | ONCOLOGY CLINIC [address] | [facility] | | | | | [facility] | [place] [address] | | | | | [place] [address] | [phone] | | | | | [phone] | | | +--------+ + + + [...] | | | | | | [facility] [address] | | | | | | [phone] | | | | | | | | +--------+---------+ + + + documented as of this encounter Visit Diagnoses Not on filedocumented in this encounter"
--- OUTSIDE RECORDS SUMMARY | ~2019-07-09 | XMS | Encounter Summary ---
Demographics + + + | Address | [address] | | | [place] [address] | + + + | Home Phone [...] Providers + +------+ + | Care Tool Programmer Name | Role | Phone | + +------+ + | Valeriy Carmona MD | PCP | | + +------+ + Encounter Details +--------+ + + + + | Date | Type | Department | Care Team | Description | +--------+ + + + + | 12/23/ | Outside | UNKNOWN DEPARTMENT | Other, Faculty | | | 2018 | Records | [address] [facility] | [phone] | | | | | [address] | | | | | | [place], [place] | | | | | | [address] | | | +--------+ + + + [...]
--- OUTSIDE RECORDS SUMMARY | ~2019-07-09 | XMS | Encounter Summary ---
Demographics + + + | Address | [address] | | | [place] [address] | + + + | Home Phone [...] Team Providers + +------+ + | Care Starchmaker Name | Role | Phone | + [...] Rd | | | | | | [place], [place] | | | | | | [address] | | | +--------+ + + + [...]
--- OUTSIDE RECORDS SUMMARY | ~2019-07-09 | XMS | Encounter Summary ---
Demographics + + + | Address | [address] | | | [place] [address] | + + + | Home Phone [...] Providers + +------+ + | Care Public Relations Senior Associate Name | Role | Phone | [...] | | | | Mailcode: Center | [place], [place] | | | | | [facility] and | [address] | | | | | Healing, Building [address] | [phone] | | | | | [place], [place] | | | | | | [address] | | | | | | [phone] | | | +--------+ + + + [...]
--- OUTSIDE RECORDS SUMMARY | ~2019-07-09 | XMS | Encounter Summary ---
Demographics + + + | Address | [address] | | | [place] [address] | + + + | Home Phone [...] Author | [facility] | | | and Eduardoana | + + + | Organization | [facility] | | | and Eduardoana | + + + | Address | Unknown | + + + | Phone | Unavailable | + + + Support + + + + + | Name | Relationship | Address | Phone | + + + + + | Poncho Oquendo | ECON | [address] | | | | | [facility] [place] | | | | | [address] | | + + + + + | Marta Upton | ECON | [place] | | | | | [address] | | + + + + + Care Team Providers + +------+ + | Care Mail Clerk Name | Role | Phone | [...] + + | 04/26/ | Surgery | [facility] | Pedro Green, | CYSTOSCOPY URETERAL | | 2019 | | REGIONAL SURGERY | DO [address] | STENT | | | | CENTER INTRA OP | [place] [address] | REMOVAL/REPLACEMENT | | | | [address] | [phone] | | | | | [place], [place] | | | | | | [address] | | | | | | [phone] | | | +--------+---------+ + + + [...] documented in this encounter Discharge Instructions Instructions Cinyd Casarez RN - 04/27/2019Formatting of this note [...] lasts more than a day, a fever [id number] (38 C), or trouble urinating. Date Last Reviewed: 02/15/201619992172-6430 [employer]. [address] [place] [address], [place] [address]. All righ ts reserved. This information is [...] out of the urethra Date Last Reviewed: 02/15/201619997728-1281 [employer]. [address] [place] [address]. All righ ts reserved. This information is [...] 2019 | Visit | | DO [address] [facility] | | | | | | [place] [address] | | | | | | [phone] | | | | | | | [...]
--- OUTSIDE RECORDS SUMMARY | ~2019-07-09 | XMS | Encounter Summary ---
Demographics + + + | Address | [address] | | | [place] [address] | + + + | Home Phone [...] Author | [facility] | | | and Eduardoana | + + + | Organization | [facility] | | | and Eduardoana | + + + | Address | Unknown | + + + | Phone | Unavailable | + + + Support + + + + + | Name | Relationship | Address | Phone | + + + + + | Poncho Oquendo | ECON | [address] | | | | | [place] | | | | | [address] | | + + + + + | Marta Upton | ECON | [place] | | | | | [address] | | + + + + + Care Team Providers + +------+ + | Care Stained Glass Installer Name | Role | Phone | [...] + | 08/04/ | Orders Only | [facility] | Reinaldo, | Community acquired | | 2018 | | [facility] | Epifanio Soler MD [address] | pneumonia of right | | | | ONCOLOGY CLINIC [address] | [address] [place] | lower lobe of lung | | | | [address] [place] | [place] [address] | (Primary Dx) | | | | [place] [address] | [phone] | | | | | [phone] | | | +--------+ + + + [...] [address] | | | | | | [place] [address] | | | | | | [phone] | | | | | | | | +--------+---------+ + + + documented as of this encounter Visit Diagnoses + + | Diagnosis | + + | Community acquired pneumonia of right lower lobe of lung - Primary | + + documented in this encounter"
--- OUTSIDE RECORDS SUMMARY | ~2019-07-09 | XMS | Encounter Summary ---
Demographics + + + | Address | [address] | | | [place] [address] | + + + | Home Phone [...] | Author | [facility] | | | and Eduardoana | + + + | Organization | [facility] | | | and Eduardoana | + + + | Address | Unknown | + + + | Phone | Unavailable | + + + Support + + + + + | Name | Relationship | Address | Phone | + + + + + | Poncho Oquendo | ECON | [address] | | | | | [place] | | | | | [address] | | + + + + + | Marta Upton | ECON | [place] | | | | | [address] | | + + + + + Care Team Providers + +------+ + | Care Tile And Mottle Supervisor Name | Role | Phone | + +------+ + | Valeriy Carmona DO | PCP | | + +------+ + Encounter Details +--------+ + + + + | Date | Type | Department | Care Team | Description | +--------+ + + + + | 05/07/ | Orders Only | [facility] | Marcelina Johnson, | | | 2016 | | MED CTR CHEMO | RN | | | | | INFUSION [address] | | | | | | [place], | | | | | | [place] [address] | | | | | | [phone] | | | +--------+ + + + [...] | | | | | [place] [address] | | | | | | [phone] | | | | | | | | +--------+---------+ + + + documented as of this encounter Visit Diagnoses Not on filedocumented in this encounter"
--- OUTSIDE RECORDS SUMMARY | ~2019-07-09 | XMS | Encounter Summary ---
Demographics + + + | Address | [address] | | | [place] [address] | + + + | Home Phone [...] Author | [facility] | | | and Eduardoana | + + + | Organization | [facility] | | | and Eduardoana | + + + | Address | Unknown | + + + | Phone | Unavailable | + + + Support + + + + + | Name | Relationship | Address | Phone | + + + + + | Poncho Oquendo | ECON | [address] | | | | | [facility], [place] | | | | | [address] | | + + + + + | Marta Upton | ECON | [place] | | | | | [address] | | + + + + + Care Team Providers + +------+ + | Care Armature Straightener Name | Role | Phone | [...] + + | 10/18/ | Telephone | [facility] | Pedro Green, | Other (Canceling | | 2019 | | UROLOGY [address] | DO [address] | Appointment) | | | | [address] | [place] [address] | | | | | [place], [place] | [phone] | | | | | [address] | | | | | | [phone] | | | +--------+ + + + [...] [address] | | | | | | [place] [address] | | | | | | [phone] | | | | | | | | +--------+---------+ + + + documented as of this encounter Visit Diagnoses Not on filedocumented in this encounter"
--- OUTSIDE RECORDS SUMMARY | ~2019-07-09 | XMS | Encounter Summary ---
Demographics + + + | Address | [address] | | | [place] [address] | + + + | Home Phone [...] Author | [facility] | | | and Eduardoana | + + + | Organization | [facility] | | | and Eduardoana | + + + | Address | Unknown | + + + | Phone | Unavailable | + + + Support + + + + + | Name | Relationship | Address | Phone | + + + + + | Poncho Oquendo | ECON | [address] | | | | | [place] | | | | | [address] | | + + + + + | Matra Upton | ECON | [place] | | | | | [address] | | + + + + + Care Team Providers + +------+ + | Care Sample Maker Hand Name | Role | Phone | [...] | ONCOLOGY CLINIC [address] | [facility] | | | | | W [facility] | [place] [address] | | | | | [place] [address] | [phone] | | | | | [phone] | | | +--------+ + + + [...] [facility] [address] | | | | | | [phone] | | | | | | | | +--------+---------+ + + + documented as of this encounter Visit Diagnoses Not on filedocumented in this encounter"
--- OUTSIDE RECORDS SUMMARY | ~2019-07-09 | XMS | Encounter Summary ---
Demographics + + + | Address | [address] | | | [place] [address] | + + + | Home Phone [...] Providers + +------+ + | Care Assistant Women'S Rowing Coach Name | Role | Phone | + [...] Telephone follow-up | | 2012 | | [place] at [facility] [address] | [address] [facility] | (Pt requested | | | | Eric[address]on [address] | [address] | reports be sent to | | | | Mailcode: Center | [place], [place] | outside ) | | | | for Health and | [address] | | | | | [place] [address] | [phone] | | | | | [place], [place] | | | | | | [address] | | | | | | [phone] | | | +--------+ + + + [...]
--- OUTSIDE RECORDS SUMMARY | ~2019-07-09 | XMS | Encounter Summary ---
Demographics + + + | Address | [address] | | | [place] [address] | + + + | Home Phone [...] Team Providers + +------+ + | Care Correctional Classification Counselor Name | Role | Phone | [...] | | | | | | | [place], [place] | | | | | | | [address] | | | | | | | Phone: | | | | | | | [phone] | | | | | | | Fax: | | | | | | | [phone] | +--------+--------+ + + + + Encounter Details +--------+ + + + + | Date | Type | Department | Care Team | Description | +--------+ + + + + | 07/04/ | Hospital | [facility] | Virgilio Esquivel MD | | | 2008 | Encounter | ST[address] | [address] | | | | | Katerina Mailcode: [facility] | Velma [place], | | | | | [facility] | [place] [address] | | | | | Health and He[facility], | [phone] | | | | | [facility] 1 | | | | | | [place], [place] | | | | | | [address] | | | | | | [phone] | | | +--------+ + + + [...] Performed At | + + + | [id number] | | | [id number] | | | [id number] [place]D [place]RED[place] 554336 [id number] | | | Date: 07/04/2008 Attending Surgeon: | | | Virgilio Esquivel M.D. Client Experience Consultant(s): | | | Prudencio Fay MD Preoperative [...] left side, and | | | a Cypress was used to elevate the left mucoperichondrial [...] performed with a #15 blade followed by Cypress elevation of | | | mucoperichondrial flap. The portions of mucosa surrounding the | | | perforation were then incised with a Cypress. Additional mobilization | | | of the [...] Surgery MMK / HS | | | [id number] / [id number] / [id number] / | | | | | + + + + + | Procedure Note | + + | Prudencio Fay MD - 07/04/2008 12:00 AM PDT [id number] | | [id number] [facility] | | [place] [id number] Date: 07/04/2008 Attending Surgeon: | | Virgilio Esquivel M.D. Client Experience Consultant(s): Prudencio Fay MD | | Preoperative Diagnosis(es):Septal [...] the cartilage on theleft side, and a Cypress was | | used to elevate the left mucoperichondrial flap.This was elevated above and below the | | level of the perforation and wastaken past the bony cartilaginous junction superiorly | | and inferiorly. Inorder to gain additional exposure, the right side was approached in | | asimilar fashion. Cartilaginous scoring was performed with a #15 bladefollowed by Cypress | | elevation of mucoperichondrial flap. The portions ofmucosa surrounding the perforation | | were then incised with a Cypress.Additional mobilization of the bilateral | | mucoperichondrial [...] cartilages onto the anterior septal angle of tonsil hospital. The soft tissue | | skin [...] M.D.Facial Plastic | | and Reconstructive Surgery [facility] / [id number] / [id number] / [id number] / T: 07/06/2008 | | | |approached initially. A #15 blade was used to score the cartilage on the | |left side, and a Cypress was used to elevate the left mucoperichondrial flap. | |This was elevated above and below the level of the perforation and was | |taken past the bony cartilaginous junction superiorly and inferiorly. In | |order to gain additional exposure, the right side was approached in a | |similar fashion. Cartilaginous scoring was performed with a #15 blade | |followed by Cypress elevation of mucoperichondrial flap. The portions of | |mucosa surrounding the perforation were then incised with a Cypress. | |Additional mobilization of the bilateral mucoperichondrial [...] | | | |KRISTINA / HS | |[id number] / [id number] / 04543 / | | | | | | | | | | | | | | | | | | | | | + + TEACHING PHYSICIAN (07/04/2008 12:00 AM PDT) + + + | Narrative | Performed At | + + + | [id number] | | | [id number] | | | [id number] [facility] [id number] | | | Date: 07/04/2008 Attending Surgeon: | | | Virgilio Esquivel M.D. Client Experience Consultant(s): | | | Prudencio Fay MD Preoperative [...] Surgery TDW / HS | | | [id number] / [id number] / [id number] / | | | | | + + + + + | Procedure Note | + + | Virgilio Esquivel MD - 07/04/2008 12:00 AM PDT [id number] | | [id number] [facility] | | [place] [id number] Date: 07/04/2008 Attending Surgeon: | | Virgilio Esquivel M.D. Client Experience Consultant(s): Prudencio Fay MD | | Preoperative Diagnosis(es):Nasal [...] M.D.Facial Plastic and Reconstructive Surgery TDW / [id number] / | | [id number] / [id number] / T: 07/04/2008 | | | | [...] | | | |TDW / HS | |[id number] / [id number] / [id number] / | | | | | | | | | | | | | | | | | | | | | + + documented in this encounter Visit Diagnoses Not on filedocumented in this encounter
--- OUTSIDE RECORDS SUMMARY | ~2019-07-09 | XMS | Encounter Summary ---
Demographics + + + | Address | [address] | | | [place] [address] | + + + | Home Phone [...] + | Author | [facility] | | | and Eduardoana | + + + | Organization | [facility] | | | and Eduardoana | + + + | Address | Unknown | + + + | Phone | Unavailable | + + + Support + + + + + | Name | Relationship | Address | Phone | + + + + + | Poncho Oquendo | ECON | [address] | | | | | [place] | | | | | [address] | | + + + + + | Marta Upton | ECON | [place] | | | | | [address] | | + + + + + Care Team Providers + +------+ + | Care Overlock Elastic Attacher Name | Role | Phone | + +------+ + | Valeriy Carmona DO | PCP | | + +------+ + Encounter Details +--------+ + + + + | Date | Type | Department | Care Team | Description | +--------+ + + + + | 08/27/ | Hospital | [facility] | Valeriy Carmona, | Breast nodule | | 2016 | Encounter | MED CTR MAMMOGRAPHY | DO [address] | | | | | [address] | [place] [address] | | | | | [place], [place] | [phone] | | | | | [address] | | | | | | [phone] | [address] | | +--------+ [...] | | | [facility] [place] [address] | | | | | | [phone] | | | | | | | [...]
--- OUTSIDE RECORDS SUMMARY | ~2019-07-09 | XMS | Encounter Summary ---
Demographics + + + | Address | [address] | | | [place] [address] | + + + | Home Phone [...] Team Providers + +------+ + | Care Ostrich Farm Worker Name | Role | Phone | [...] 08/19/ | Telephone | [facility] | Tai Stanton, | Ultrasound | | 2012 | | [place] [facility] [address] | [address] | | | | | Erickson Borges | [address] | | | | | Mailcode: [place] | [place], [place] | | | | | for Health and | [address] | | | | | [facility] 2 | [phone] | | | | | [place], [place] | | | | | | [address] | | | | | | [phone] | | | +--------+ + + + [...]
--- OUTSIDE RECORDS SUMMARY | ~2019-07-09 | XMS | Encounter Summary ---
Demographics + + + | Address | [address] | | | [place] [address] | + + + | Home Phone [...] Team Providers + +------+ + | Care Morgue Keeper Name | Role | Phone | + [...] | neoplasm of | [address]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 | [address] | [facility] | | | | | (HCC) | [address] | [address] | | | | | Procedures | [place] | [place] | | | | | CONSULT TO | [address] | [address] Phone: | | | | | HEMATOLOGY / | Phone: | [phone] | | | | | ONCOLOGY | [phone] | Fax: | | | | | PRACTICE | Fax: | [phone] | | | | | | [phone] | | +--------+--------+ + + + + Encounter Details +--------+---------+ + + + | Date | Type | Department | Care Team | Description | +--------+---------+ + + + | 06/26/ | Office | [facility] | Elva Grey, | 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 | Clinics at S | [address] | (HCC) (Primary Dx) | | | | [facility] | [facility] [address] | | | | | [facility] and | [place] [address] | | | | | Healing [address] | [phone] | | | | | [place], [place] | | | | | | [address] | | | | | | [phone] | | | +--------+---------+ + + + [...] negative for malignancy - Adjuvant chemotherapy recommended: Croghan/Cap for 4 cycles then restaging - 09/13/12-10/23/12 Chemoradiation with Cape - Treated locally by Dr Najera - CT on 03/18/2014 which noted a left ovarian cyst measuring 5.5 x 5.8 x 2.6 cm - Referred to Dr Henderson in [facility] - 06/07/14 To [place] for Exploratory [...] excised lymph nodes from the gallbladder bed ([id number], slides E3-4). Additionally, immunohistochemical staining on the [...] of benefit - recommend 1st line chemotherapy, Croghan/Cisplatin would be standard, no clinical trials open at [facility] for 1st line therapy, and would [...]
--- OUTSIDE RECORDS SUMMARY | ~2019-07-09 | XMS | Encounter Summary ---
Demographics + + + | Address | [address] | | | [place] [address] | + + + | Home Phone [...] | Author | [facility] | | | and Eduardoana | + + + | Organization | [facility] | | | and Eduardoana | + + + | Address | Unknown | + + + | Phone | Unavailable | + + + Support + + + + + | Name | Relationship | Address | Phone | + + + + + | Poncho Oquendo | ECON | [address] | | | | | [place] [facility] [place] | | | | | [address] | | + + + + + | Marta Upton | ECON | [place] | | | | | [address] | | + + + + + Care Team Providers + +------+ + | Care Cook Fishing Vessel Name | Role | Phone | + [...] + + | 11/29/ | Hospital | [facility] | Pedro Green, | Obstruction of left | | 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 | [facility] | DO [address] | ureter | | | | CARE FLOOR [address] | [place] [address] | | | | | [address] | [phone] | | | | | [place] | | | | | | [address] | | | | | | [phone] | | | +--------+ + + + [...] out of the urethra Date Last Reviewed: 02/15/201619992738-0251 [employer]ie[address] [place] [address]. All righ ts reserved. This information is [...] on your doctor's advice. Talk to your quartz cutter regarding the use of this medicine in children. Special care may be needed. What side effects may I notice from receiving this medicine? Side effects that you should report to your doctor or health ambulatory care coordinator as soon as p ossible: allergic reactions like skin rash, itching or hives, swelling of the face, lips, or tongue blue or purple color of the skin difficulty breathing fever less urine unusual bleeding, bruising unusual tired, weak vomiting yellowing of the eyes or skin Side effects that usually do not require medical attention (report to your doctor or health ambulatory care coordinator if they continue or are [...] if you have any of these conditions: qcnrpjg-5-pmuopsxib dehydrogenase (G6PD) deficiency kidney disease an unusual or allergic reaction to phenazopyridine, other medicines, foods, dyes, or preser vatives or trying to get breast-feeding What should I watch for while using this medicine? Tell your doctor or health ambulatory care coordinator if your symptoms do not [...] for sugar in your urine. Talk to [facility] health care provider. NOTE:This sheet is [...] information carefully each time. Talk to your quartz cutter regarding the use of this medicine in children. Special care may be needed. What side effects may I notice from receiving this medicine? Side effects that you should report to your doctor or health ambulatory care coordinator as soon as p ossible: [...] attention (report to your doctor or health ambulatory care coordinator if they continue or are [...] watery. Check with your doctor or health ambulatory care coordinator if you get an attack of severe diarrhea, nausea and vomiting, or if you sweat a lot. The loss of too much body fluid can make it haile gerous for you to take this medicine. This medicine may affect blood sugar levels. If you have diabetes, check with your doctor o r health ambulatory care coordinator before you change your diet [...] [address] | | | | | | [place] [address] | | | | | | [phone] | | | | | | | [...] | | | | | | longer, ugbjra-tcq-wilsb use of | | | | | [...]
--- OUTSIDE RECORDS SUMMARY | ~2019-07-09 | XMS | Encounter Summary ---
Demographics + + + | Address | [address] | | | [place] [address] | + + + | Home Phone [...] Team Providers + +------+ + | Care Top Inventory Control Executive Name | Role | Phone | [...] Pharmacy | | | | | | [address] | | | | | | [place], [place] | | | | | | [address] | | | | | | [phone] | | | +--------+ + + + [...]
--- OUTSIDE RECORDS SUMMARY | ~2019-07-09 | XMS | Encounter Summary ---
Demographics + + + | Address | [address] | | | [place] [address] | + + + | Home Phone [...] Team Providers + +------+ + | Care Education Officer Name | Role | Phone | [...] & | Diagnoses | Non-[facility] | [facility] | | | | Gynecology | Complex | Epic Dept | [address] | | | | | Cystic Mass, | | [address] | | | | | elevated | | [place] | | | | | [address] per | | Alexis, 7th | | | | | appt notes | | floor | | | | | | | [place], [place] | | | | | | | [address] | | | | | | | Phone: | | | | | | | [phone] | | | | | | | Fax: | | | | | | | [phone] | +--------+--------+ + + + + Encounter Details +--------+---------+ + + + | Date | Type | Department | Care Team | Description | +--------+---------+ + + + | 06/18/ | Office | [facility] | Miguel Seymour, | 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 | [facility] | [address] | (HCC) (Primary Dx) | | | | Alexis [address] | [facility] | | | | | [address] | [place], [place] | | | | | Alexis, [facility] floor | [address] | | | | | [place], [place] | [phone] | | | | | [address] | | | | | | [phone] | | | +--------+---------+ + + + [...] RN - 06/18/2014 10:51 AM PDTPlease call [facility] scheduling to set up a post op follow up in 5-6 weeks for a pelvic exam. [phone], ok to coordinat e with an apt with or Romy (ok if it is longer than 6 weeks) if you like. documented in this encounter Progress Notes Pavithra Aviles MD - 06/18/2014 10:34 AM PDTFormatting of this note might be different fro m the original. CURVE SAW OPERATOR ONCOLOGY CONSULTATION Aura Upton 06/18/2014 PCP: SANDY [...] Narrative Pt has SO. Lives in [facility]. 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 Additionally, immunohistochemical staining on [...] Aviles MD Obstetrics and Gynecology, PGY1 Pager #[phone] I saw and evaluated the patient. I [...]
--- OUTSIDE RECORDS SUMMARY | ~2019-07-09 | XMS | Encounter Summary ---
Demographics + + + | Address | [address] | | | [place] [address] | + + + | Home Phone [...] Author | [facility] | | | and Eduardoana | + + + | Organization | [facility] | | | and Eduardoana | + + + | Address | Unknown | + + + | Phone | Unavailable | + + + Support + + + + + | Name | Relationship | Address | Phone | + + + + + | Poncho Oquendo | ECON | [address] | | | | | [place] [facility] [place] | | | | | [address] | | + + + + + | Marta Upton | ECON | [place], [place] | | | | | [address] | | + + + + + Care Team Providers + +------+ + | Care Instructor Extension Work Name | Role | Phone | + +------+ + PCP | Unavailable | + +------+ + Encounter Details +--------+ + + + + | Date | Type | Department | Care Team | Description | +--------+ + + + + | 07/15/ | Hospital | [facility] | Dale Taylor MD | | | 2011 | Encounter | MED CTR XRAY [address] | [address] | | | | | [place] | [address] [place], | | | | | [place] [address] | [place] [address] | | | | | [phone] | [phone] | | | | | | | [...] [address] | | | | | | [place] [address] | | | | | | [phone] | | | | | | | [...] Performed At | + + + | [facility] Diagnostic Imaging Department | [facility] | | [address] [facility] | [facility] | | MRI OF THE BRAIN EXTENDED [...] Transcribed Date/Time: 07/16/2011 12:57 | | | Paper Machine Operator: <Electronically Signed by Mathieu Brasher, | | | > 07/16/11 3097 | | + + + + + | Procedure Note | + + | Edmundo, Rad Conversion - 03/23/2013 5:27 PM [facility] | | Diagnostic Imaging Department [address] [place] [address] | | MRI OF THE BRAIN EXTENDED [...] 12:45 | |Transcribed Date/Time: 07/16/2011 12:57 | |Paper Machine Operator: | |<Electronically Signed by Mathieu Brasher MD> [...]
--- OUTSIDE RECORDS SUMMARY | ~2019-07-09 | XMS | Encounter Summary ---
Demographics + + + | Address | [address] | | | [place] [address] [...] | [facility] | | | and Eduardo[place] | + + + | Organization | [facility] | | | and Eduardoana | + + + | Address | Unknown | + + + | Phone | Unavailable | + + + Support + + + + + | Name | Relationship | Address | Phone | + + + + + | Poncho Oquendo | ECON | [address] | | | | | [place] | | | | | [address] | | + + + + + | Marta Upton | ECON | [place] | | | | | [address] | | + + + + + Care Team Providers + +------+ + | Care Biofuels Manager Name | Role | Phone | [...] HOSPITAL | | | | | [facility] | [place] [address] | | | | | [place] [address] | [phone] | | | | | [phone] | | | +--------+ + + + [...] | | | | | [place] [address] | | | | | | [phone] | | | | | | | | +--------+---------+ + + + documented as of this encounter Visit Diagnoses Not on filedocumented in this encounter"
--- OUTSIDE RECORDS SUMMARY | ~2019-07-09 | XMS | Encounter Summary ---
Demographics + + + | Address | [address] | | | [place] [address] | + + + | Home Phone [...] Providers + +------+ + | Care Staff Consultant Name | Role | Phone | + +------+ + | Valeriy Carmona MD | PCP | | + +------+ + Encounter Details +--------+ + + + + | Date | Type | Department | Care Team | Description | +--------+ + + + + | 12/23/ | Outside | UNKNOWN DEPARTMENT | Other, Faculty | | | 2018 | Records | [address] [facility] | [phone] | | | | | [address] | | | | | | [place], [place] | | | | | | [address] | | | +--------+ + + + [...]
--- OUTSIDE RECORDS SUMMARY | ~2019-07-09 | XMS | Encounter Summary ---
Demographics + + + | Address | [address] | | | [place] [address] | + + + | Home Phone [...] Author | [facility] | | | and Eduardoana | + + + | Organization | [facility] | | | and Eduardoana | + + + | Address | Unknown | + + + | Phone | Unavailable | + + + Support + + + + + | Name | Relationship | Address | Phone | + + + + + | Poncho Oquendo | ECON | [address] | | | | | [place] | | | | | [address] | | + + + + + | Marta Upton | ECON | [place] | | | | | [address] | | + + + + + Care Team Providers + +------+ + | Care Store Operations Manager Name | Role | Phone | + +------+ + | Valeriy Carmona DO | PCP | | + +------+ + Encounter Details +--------+ + + + + | Date | Type | Department | Care Team | Description | +--------+ + + + + | 07/01/ | Abstract | [facility] | Nelda Fuchs, | | | 2014 | | MED CTR PHARMACY | [facility] [address] | | | | | [address] [place] | [place], [place] | | | | | [place] [address] | [address] | | | | | [phone] | | | +--------+ + + + [...] as of this encounter Progress Nelda Pimentel [facility] - 07/01/2014 1:37 PM PDTFormatting of this note might be different fro m the original. IDT PATIENT MEDICATION/PROFILE REVIEW [facility] SERVICES [...] 12 kg/m2, Est CrCl = 110 ml/min (Schrader-Annville Equation) Allergies : Sulfa antibiotics Diagnosis: Stage [...] 2019 | Visit | | DO [address] | | | | | | [place] [address] | | | | | | [phone] | | | | | | | | +--------+---------+ + + + documented as of this encounter Visit Diagnoses Not on filedocumented in this encounter
--- OUTSIDE RECORDS SUMMARY | ~2019-07-09 | XMS | Clinical Summary ---
Demographics + + + | Address | [address] | | | [place] [address] | + + + | Home Phone [...] Team Providers + +------+ + | Care Running Instructor Name | Role | Phone | + +------+ + | Valeriy Carmona MD | PCP | | + +------+ + Source Comments GWEN is fully live on both EpicCare Ambulatory and EpicCare InPatient.[facility] Allergies + + + + + + [...] Ragland at . | | Babak in [place]. -04/26/2012: R0 Resection. | | -05/31/2012-09/03/2012 Chemotherapy: [...] CROSS | | 16-Pre | 8 | [address] | | | | [place] | | sent | | [place], | | | | L | | | | [place] [address] | | + +--------+ +--------+ + +--------+ | [facility] | [facility]AI | [phone] | 02/14/19 | | | [...] Person | Self | [birth year] | [address] | | | al/Fam | | 1961 | [phone] | [place] | | | jose alejandro | | | 5 (Home) | [address] | + +--------+ +--------+ + + | Aura Upton | Agency | Self | [birth year] | | [address] | | | | | 1961 | [phone] | [place] | | | | | | 5 (Home) | [address] | + +--------+ +--------+ + + Advance Directives + + + + + | Type | Date Recorded | Patient | Explanation | | | | Textile Pin Worker | | + + + + + | Advance | | | | | Directives and | | | | | Living Will | | | | + + + + + | Power of | | | | | Steamfitter | | | | + + + [...]
--- OUTSIDE RECORDS SUMMARY | ~2019-07-09 | XMS | Encounter Summary ---
Demographics + + + | Address | [address] | | | [place] [address] | + + + | Home Phone [...] Team Providers + +------+ + | Care Putty Maker Name | Role | Phone | [...] HIEN Mojica | | | | | [facility] | [address] | | | | | [facility] and | [place] [address] | | | | | Healing [facility] | [phone] | | | | | [place], [place] | | | | | | [address] | | | | | | [phone] | | | +--------+ + + + [...]
--- OUTSIDE RECORDS SUMMARY | ~2019-07-09 | XMS | Encounter Summary ---
Demographics + + + | Address | [address] | | | [place] [address] | + + + | Home Phone [...] | Author | [facility] | | | and Eduardoana | + + + | Organization | [facility] | | | and Eduardoana | + + + | Address | Unknown | + + + | Phone | Unavailable | + + + Support + + + + + | Name | Relationship | Address | Phone | + + + + + | Poncho Oquendo | ECON | [address] | | | | | [place] | | | | | [address] | | + + + + + | Marta Upton | ECON | [place] | | | | | [address] | | + + + + + Care Team Providers + +------+ + | Care Grounds Person Name | Role | Phone | [...] [place] | | | | | [address] [place] | [place] [address] | | | | | [place] [address] | [phone] | | | | | [phone] | | | +--------+ + + + [...] | | | | | [place] [address] | | | | | | [phone] | | | | | | | | +--------+---------+ + + + documented as of this encounter Visit Diagnoses Not on filedocumented in this encounter"
--- OUTSIDE RECORDS SUMMARY | ~2019-07-09 | XMS | Encounter Summary ---
Demographics + + + | Address | [address] | | | [place] [address] | + + + | Home Phone [...] | Author | [facility] | | | and Eduardoana | + + + | Organization | [facility] | | | and Eduardoana | + + + | Address | Unknown | + + + | Phone | Unavailable | + + + Support + + + + + | Name | Relationship | Address | Phone | + + + + + | Poncho Oquendo | ECON | [address] | | | | | [place] | | | | | [address] | | + + + + + | Marta Upton | ECON | [place] | | | | | [address] | | + + + + + Care Team Providers + +------+ + | Care Gasoline Dragline Operator Name | Role | Phone | [...] [address] [place] | | | | | [place], | [place] [address] | | | | | [place] [address] | [phone] | | | | | [phone] | | | +--------+ + + + [...] [address] | | | | | | [place] [address] | | | | | | [phone] | | | | | | | [...] LIMITED RIGHT 03/05/2016 1:00 | | PMEXAM: [facility] RIGHT dated 03/05/2016 [...] At | + + + | EXAM: [facility] RIGHT dated 03/05/2016 [...]
--- OUTSIDE RECORDS SUMMARY | ~2019-07-09 | XMS | Encounter Summary ---
Demographics + + + | Address | [address] | | | [place] [address] | + + + | Home Phone [...] Providers + +------+ + | Care Supervisor Byproducts Name | Role | Phone | + [...] Mojica | treatment | | | | [facility] | [address] | | | | | for Health and | [place] [address] | | | | | Healing [facility] | [phone] | | | | | [place], [place] | | | | | | [address] | | | | | | [phone] | | | +--------+ + + + [...]
--- OUTSIDE RECORDS SUMMARY | ~2019-07-09 | XMS | Encounter Summary ---
Demographics + + + | Address | [address] | | | [place] [address] | + + + | Home Phone [...] | Author | [facility] | | | and Eduardoana | + + + | Organization | [facility] | | | and Eduardoana | + + + | Address | Unknown | + + + | Phone | Unavailable | + + + Support + + + + + | Name | Relationship | Address | Phone | + + + + + | Poncho Oquendo | ECON | [address] | | | | | [place] | | | | | [address] | | + + + + + | Marta Upton | ECON | [place] | | | | | [address] | | + + + + + Care Team Providers + +------+ + | Care Plastic Sheeting Cutter Name | Role | Phone | [...] 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, | [address] [place]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 | MD [address] | [place], | | | | | (HCC) | [address] | [place] [address] | | | | | Procedures | EMANUEL DASILVAA, | Phone: | | | | | [place] | [place] [address] | [phone] | | | | | SALINE | Phone: | Fax: | | | | | SOLUTION | [phone] | [phone] | | | | | INFUS, [address] | Fax: | | | | | | [place] | [phone] | | | | | | NORMAL [...] | | | | | | MG 5/20 > | | | | | | | PENDING YH | | | | | | | RESPONSE | | | +--------+--------+ + + + + Encounter Details +--------+ + + + + | Date | Type | Department | Care Team | Description | +--------+ + + + + | 07/04/ | Hospital | [facility] | Reinaldo, | Gallbladder cancer, | | 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 | Epifanio Soler MD [address] | carcinoma (HCC) | | | | INFUSION [address] [place] | (Primary Dx) | | | | [place], | [place] [address] | | | | | [place] [address] | [phone] | | | | | [phone] | | | +--------+ + + + [...] insert 1 tablet | | 0 | 01/30/20 | | | (VAGIFEM) 10 mcg | [...] self. Has return appts for pe ndleton. AMTrumbuMilly santizo RN - 07/05/2019 10:00 AM PDTEnergy [...] [address] | | | | | | [place] [address] | | | | | | [phone] | | | | | | | [...] | | | over 30 Minutes, ONCE, [facility] | | | | | | [...] 500 Units 500 Units ( | | 11:54 | Units | | | | mL), Intracatheter, PRN, Line | | AM PDT | | | | | Care, Starting [facility] 07/05/19 at | | | | [...] | | | | | Pain, Starting [facility] 07/05/19 at | | | | [...] | | | | | Minutes, ONCE, [facility] 07/05/19 at | | | | | | | 0945, For 1 dose | | | | | | + +---------+ +------+--------+---+ +---+---+ | | | +---+---+ documented in this encounter"
--- OUTSIDE RECORDS SUMMARY | ~2019-07-09 | XMS | Encounter Summary ---
Demographics + + + | Address | [address] | | | [place] [address] | + + + | Home Phone [...] Author | [facility] | | | and Eduardoana | + + + | Organization | [facility] | | | and Eduardoana | + + + | Address | Unknown | + + + | Phone | Unavailable | + + + Support + + + + + | Name | Relationship | Address | Phone | + + + + + | Poncho Oquendo | ECON | [address] | | | | | [facility] [facility] [place] [place] | | | | | [address] | | + + + + + | Marta Upton | ECON | [place], [place] | | | | | [address] | | + + + + + Care Team Providers + +------+ + | Care Assembler Hydraulic Backhoe Name | Role | Phone | + +------+ + PCP | Unavailable | + +------+ + Encounter Details +--------+ + + + + | Date | Type | Department | Care Team | Description | +--------+ + + + + | 01/15/ | Hospital | [facility] | | | | 2012 | Encounter | MED CTR XRAY [address] | | | | | | [place] | | | | | | [place] [address] | | | | | | [phone] | | | +--------+ + + + [...] [address] | | | | | | [place] [address] | | | | | | [phone] | | | | | | | [...] At | + + + | [facility] | [place] | | Department [address] [place] | [facility] | | [ rep ct [address]] [ rep ct [facility] | | zip] Signed | - IMAGING | | | | | Patient Name: JENELLEAURA HANSON Physician: | | | LIZBETH. : 1960 Age: 52 Sex: F Unit #: [id number] | | | Exam Date: 01/15/13 [place]: [facility] | | | Report #: [id number] Page: | | | %(RAD)RES..mtdd.print.filter("pg") of %(RAD) | | | RES..mtdd.print.filter("tpg") | | | | | | Accession Number: [id number] | | | CHEST, ABDOMEN, PELVIS CT [...] Transcribed | | | Date/Time: 01/15/2013 13:23 Burnishing Machine Operator: | | | <<Signature on File>> | | | Mathieu Blas | | Emir Brasher MD01/15/132 <Electronically signed by Mathieu Brasher MD> Mathieu Brasher MD 01/15/13 1140 | | | Burnishing Machine Operator: [facility] Gal[facility]comfffr49/02/13 1323 | | | Epifanio Najera MD | | + + + + + + + + | Performing | Address | City/State/Zipcode | Phone Number | | Organization | | | | + + + + + | [address] | [address] | [place] | [phone] | | [facility] | | [address] | | | - IMAGING | | | | + + + + + documented in this encounter Visit Diagnoses Not on filedocumented in this encounter
--- OUTSIDE RECORDS SUMMARY | ~2019-07-09 | XMS | Encounter Summary ---
Demographics + + + | Address | [address] | | | [place] [address] | + + + | Home Phone [...] Team Providers + +------+ + | Care Bariatric Nurse Name | Role | Phone | + +------+ + PCP | Unavailable | + +------+ + Encounter Details +--------+ + + + + | Date | Type | Department | Care Team | Description | +--------+ + + + + | 04/07/ | Abstract | [facility] | Tai Stanton, | | | 2012 | | [place] at [facility] [address] | [address] | | | | | [address] | [address] | | | | | Mailcode: [place] | [place], [place] | | | | | for Health and | [address] | | | | | [place] [address] | [phone] | | | | | [place], [place] | | | | | | [address] | | | | | | [phone] | | | +--------+ + + + [...]
--- OUTSIDE RECORDS SUMMARY | ~2019-07-09 | XMS | Encounter Summary ---
Demographics + + + | Address | [address] | | | [place] [address] | + + + | Home Phone [...] Team Providers + +------+ + | Care Hedis Registered Nurse Rn Name | Role | Phone | [...] | | (HCC) | | | | [place], [place] | | | | | | [address] | | | | | | [phone] | | | +--------+------+ + + + [...] [facility] | [address] | [place] [address] | | | SERVICES, CORE | PARK [...] by | | | | | | [employer],[address] | | | | | | [place], [facility] | | | | | | [address] | | | | | | [phone]. | | | | | | [facility], [place], | | | [...] [facility] | [address] | [place], [place] | | | [address] [facility] [place] | | [address] | | + + + + + [...] [place] | | | | | | [facility], [facility] [address] | | | | | | [phone]. 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
--- OUTSIDE RECORDS SUMMARY | ~2019-07-09 | XMS | Encounter Summary ---
Demographics + + + | Address | [address] | | | [place] [address] | + + + | Home Phone [...] Providers + +------+ + | Care Senior Biostatistician/Group Leader Name | Role | Phone | [...] | | | | | Procedures | [place], [place] | [place], [place] | | | | | [place] | [address] | [address] | | | | | ENT / FACIAL | Phone: | Phone: | | | | | PLASTIC | [phone] | [phone] | | | | | SURGERY | Fax: | Fax: | | | | | | [phone] | [phone] | +--------+--------+ + + + + Encounter [...] | | | Reconstructive | Velma Whitfield [place], | Septal Defect | | | | Services at [facility] | [place] [address] | | | | | [address] | [phone] | | | | | Mailcode: KAREEN | | | | | | [facility] | | | | | | and Healing, | | | | | | Building [address], 5th | | | | | | Floor [place], [place] | | | | | | [address] | | | | | | [phone] | | | +--------+---------+ + + + [...] today. Photos obtained. She met with my medical office scheduler maximo hirsch. Followup arranged for preop. Time spent with patient /family, reviewing studies/ recor ds 20 minutes, with >50 % of time spent in consultation and coordination of care. Virgilio Buck MD FACS Professor Facial Plastic and Reconstructive Surgery Dept. of Otolaryngology/Head and Neck Surgery [facility] tel fax email [email or web address] documented in this encounte r Plan of [...]
--- OUTSIDE RECORDS SUMMARY | ~2019-07-09 | XMS | Encounter Summary ---
Demographics + + + | Address | [address] | | | [place] [address] | + + + | Home Phone [...] | Author | [facility] | | | and Eduardoana | + + + | Organization | [facility] | | | and Eduardoana | + + + | Address | Unknown | + + + | Phone | Unavailable | + + + Support + + + + + | Name | Relationship | Address | Phone | + + + + + | Poncho Oquendo | ECON | [address] | | | | | [place] | | | | | [address] | | + + + + + | Marta Upton | ECON | [place] | | | | | [address] | | + + + + + Care Team Providers + +------+ + | Care Bootmaker Name | Role | Phone | + [...] | (Primary Dx) | | | | [place], | | | | | | [place] [address] | | | | | | [phone] | | | +--------+ + + + [...] [address] | | | | | | [place] [address] | | | | | | [phone] | | | | | | | | +--------+---------+ + + + documented as of this encounter Visit Diagnoses + + | Diagnosis | + + | Gallbladder cancer, 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
--- OUTSIDE RECORDS SUMMARY | ~2019-07-09 | XMS | Encounter Summary ---
Demographics + + + | Address | [address] | | | [place] [address] | + + + | Home Phone [...] Team Providers + +------+ + | Care Load Out Person Name | Role | Phone | [...] + + | 06/28/ | Refill | [place] [facility] | Zully Soto RN | Refill Request | | 2014 | | [facility] [place] | [place], [place] | | | | | [address] | [address] | | | | | [address] | | | | | | [place], 7th floor | | | | | | [place], [place] | | | | | | [address] | | | | | | [phone] | | | +--------+--------+ + + + [...]
--- OUTSIDE RECORDS SUMMARY | ~2019-07-09 | XMS | Encounter Summary ---
Demographics + + + | Address | [address] | | | [place] [address] | + + + | Home Phone [...] Providers + +------+ + | Care Truck Mechanic Apprentice Name | Role | Phone [...] | | | | | Procedures | [place], [place] | [place], [place] | | | | | CONSULT [place] | [address] | [address] | | | | | ENT / FACIAL | Phone: | Phone: | | | | | PLASTIC | [phone] | [phone] | | | | | SURGERY | Fax: | Fax: | | | | | | [phone] | [phone] | +--------+--------+ + + + + Encounter [...] | | | Reconstructive | Velma Whitfield [place], | | | | | Services at [facility] | [place] [address] | | | | | [address] | [phone] | | | | | Mailcode: CH5Lynn | | | | | | [facility] | | | | | | and Healing, | | | | | | Building 1, 5th | | | | | | Floor [place], [place] | | | | | | [address] | | | | | | [phone] | | | +--------+---------+ + + + [...] Surgery Dept. of Otolaryngology/Head and Neck Surgery [facility] [place] tel fax email [email or web address] documented in this encounte r Plan of Treatment Not on filedocumented as of this encounter Visit Diagnoses + + | Diagnosis | + + | Postop check - Primary Follow-up examination, following unspecified surgery | + + documented in this encounter"
--- OUTSIDE RECORDS SUMMARY | ~2019-07-09 | XMS | Encounter Summary ---
Demographics + + + | Address | [address] | | | [place] [address] | + + + | Home Phone [...] Author | [facility] | | | and Eduardoana | + + + | Organization | [facility] | | | and Eduardoana | + + + | Address | Unknown | + + + | Phone | Unavailable | + + + Support + + + + + | Name | Relationship | Address | Phone | + + + + + | Poncho Oquendo | ECON | [address] | | | | | [place] [place] | | | | | [address] | | + + + + + | Marta Upton | ECON | [place] | | | | | [address] | | + + + + + Care Team Providers + +------+ + | Care Marine Electronics Technician Name | Role | Phone | [...] + + | 04/29/ | Telephone | [facility] | Pedro Green, | Follow-up | | 2019 | | UROLOGY [address] | DO [address] | | | | | [address] | [place] [address] | | | | | [place], [place] | [phone] | | | | | [address] | | | | | | [phone] | | | +--------+ + + + [...] [address] | | | | | | [place] [address] | | | | | | [phone] | | | | | | | | +--------+---------+ + + + documented as of this encounter Visit Diagnoses Not on filedocumented in this encounter"
--- OUTSIDE RECORDS SUMMARY | ~2019-07-09 | XMS | Encounter Summary ---
Demographics + + + | Address | [address] | | | [place] [address] | + + + | Home Phone [...] [facility] | | | and Eduardoana | + + + | Organization | [facility] | | | and Eduardoana | + + + | Address | Unknown | + + + | Phone | Unavailable | + + + Support + + + + + | Name | Relationship | Address | Phone | + + + + + | Poncho Oquendo | ECON | [address] | | | | | [place] | | | | | [address] | | + + + + + | Marta Upton | ECON | [place] | | | | | [address] | | + + + + + Care Team Providers + +------+ + | Care Staff Rn Name | Role | Phone | [...] [place] | | | | | [address] [place] | [place] [address] | | | | | [place] [address] | [phone] | | | | | [phone] | | | +--------+ + + + [...] [place] | | | | | | [place] [address] | | | | | | [phone] | | | | | | | | +--------+---------+ + + + documented as of this encounter Visit Diagnoses + + | Diagnosis | + + | Gallbladder cancer, 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
--- OUTSIDE RECORDS SUMMARY | ~2019-07-09 | XMS | Encounter Summary ---
Demographics + + + | Address | [address] | | | [place] [address] | + + + | Home Phone [...] | Author | [facility] | | | and [place]ardo[place] | + + + | Organization | [facility] | | | and [place]ardo[place] | + + + | Address | Unknown | + + + | Phone | Unavailable | + + + Support + + + + + | Name | Relationship | Address | Phone | + + + + + | Poncho Oquendo | ECON | [address] | | | | | [facility], [place] | | | | | [address] | | + + + + + | Marta Upton | ECON | [place], [place] | | | | | [address] | | + + + + + Care Team Providers + +------+ + | Care Grain Trimmer Name | Role | Phone | + +------+ + PCP | Unavailable | + +------+ + Encounter Details +--------+ + + + + | Date | Type | Department | Care Team | Description | +--------+ + + + + | 03/19/ | Hospital | [facility] | | | | 2013 | Encounter | MED CTR XRAY [address] | | | | | | [address] [place] | | | | | | [place] [address] | | | | | | [phone] | | | +--------+ + + + [...] [address] | | | | | | [place] [address] | | | | | | [phone] | | | | | | | [...] Performed At | + + + | [facility] Diagnostic Imaging | [place] | | Department [address], [address] | [facility] | | [ rep ct street[address]] [ rep ct [facility] | | st zip] Signed | - IMAGING | | | | | Patient Name: JENELLEAURA HANSON Physician: | | | [id number] : 1960 Age: 52 Sex: F Unit #: [id number] | | | Exam Date: 03/19/13 Location: [facility] | | | Report #: [id number] Page: | | | %(RAD)RES..mtdd.print.filter("pg") of %(RAD) | | | RES..mtdd.print.filter("tpg") | | | | | | Accession Number: [id number] | | | CT ABDOMEN WITH CONTRAST [...] | | | Transcribed Date/Time: 03/19/2013 18:25 Composite Assembler: | | | MS1 <<Signature on File>> | | | Mathieu | | | Emir Brasher MD03/19/131940 <Electronically signed by Mathieu Field | | | Anshu LI> Mathieu Brasher MD 03/19/13 1446 | | | Composite Assembler: Catarino Nwokrqsscdpgk95/03/14 1825 | | | Epifanio Najera MD | | + + + + + + + + | Performing | Address | City/State/Zipcode | Phone Number | | Organization | | | | + + + + + | [address] | [address] | [place] | [phone] | | [facility] | | [address] | | | - IMAGING | | | | + + + + + documented in this encounter Visit Diagnoses Not on filedocumented in this encounter
--- OUTSIDE RECORDS SUMMARY | ~2019-07-09 | XMS | Encounter Summary ---
Demographics + + + | Address | [address] | | | [place] [address] | + + + | Home Phone [...] + +------+ + | Care Continuous Mining Machine Coal Miner Name | Role | Phone | [...] + + | 04/28/ | Hospital | [facility] [address] | Cornelia Knutson, | | | 2012 - | Encounter | [facility] Mailcode: | [address] | | | | | [address] | [address] | | | 05/04/ | | [place], | [place], [place] | | | 2012 | | [place] [address] | [address] | | | | | [phone] | [phone] | | | | | | | [...] acute cholecystitis. Her pathology was reviewed at [facility]. She underwent a CT scan, [...] working on arranging an appointm ent with [facility] Oncology for treatment planning. FINAL [...] severe diarrhea.During normal business hours [facility] .For 'after hours' URGENT problems please call the [facility] lithopress operator at and ask for the "Blue [...] None Your Follow-Up Plan Follow up with [facility] HEMATOLOGY ONCOLOGY CH. (Please expect a call from the Oncology clini c in the next several days to schedule an appointment with either Dr. Grey or Dr. Ledesma ) Contact information: [address] [address] Future Appointments Date & Time Provider Department Dept Phone Center 05/17/2012 11:30 AM CORNELIA KNUTSON MD [facility] [phone] [facility] Discharging Physician: MARCO ANTONIO BEATTY NP Attending Physician: MD Marco Antonio Mauricio RN, MSN, VP OF PRODUCT [facility] Blue Surgery Pager# [phone] 9:37 AM 05/04/2012 documented in this enc [...] 05/04/12 0659 05/04/12699 - 05/05/12 0659(Discharged) Shift 8067-9450 2461-4268 6975-0283 Daily Total 0622-2054 8480-3638 6650-2363 Daily Total I N T A K E P.O. 925 442 997 9243 500 500 I.V. 5 10 15 Shift Total 930 643 419 9509 500 500 O U T P U T Urine 1050 0903 130 2128 400 400 Urine 1050 6594 261 3628 400 400 Other Stool 1 1 Shift Total 1050 5104 678 1849 400 400 NET -120 -1090 205 -1005 [...] Attending Physician: Dr. Romy Beatty RN, MSN, VP OF PRODUCT [facility] Blue Surgery Pager# [phone] 12:54 PM 05/04/2012 Current Inpatient Medications Medication [...] Parish Arias MD - 5:51 AM PDT [facility] Department of Surgery Blue Surgery [...] 04/30/12 0659 04/30/12699 - 05/01/12 0659 Shift 5214-4490 0346-2402 8733-2230 Daily Total 8816-4952 7417-7250 3193-2203 Daily Total I N T A K E P.O. 620 519 848 6777 P.O. 620 420 716 8969 I.V. 1977.33 977.5 982.5 3937.33 0 0 [...] O U T P U T Urine 587 186 2242 2004 I/O Urinary Drain Output (Urinary Cath Placement López) 151 811 7626 2004 Shift Total 850 398 1979 2005 NET 2415.83 837.5 307.5 3560.83 0 [...] tomorrow Parish Blackburn MD Surgery, R1 Pager: [phone] ilvia Del Toro NP - 05/01/2012 2:19 PM PDTPain fairly well controlled on oral medications. No longer nauseated, tolerating 10 mg oxycodone Epidural catheter discontinued, tip intact. APS will sign off, please call us back if there are any pain related concerns for us to add ress. Silvia Del Toro NP Adult Pain Service Pager [phone] Team Pager [phone] Silvia Mckeon NP - 05/01/2012 8:56 AM [...] and summary of old medical records (source: [facility]), as summarized in the body of the note. SILVIA DEL TORO NP BILLING INFORMATION [facility] DEPARTMENT: [id number] Place of Service:- Inpatient Date of Service: 05/01/2012 CSN: [id number] Suggested Modifier: None Suggested CPT: 90502 - Daily mgmt epidural/subarachnoid drug administration Prolonged service: n/a Parish Arias MD - 05/01/2012 5:44 AM PDT [facility] Department of Surgery Blue Surgery [...] Date 04/29/12699 - 04/30/1265804/30/12699 - 05/01/12658 Shift 7915-8240 6469-2016 8342-9301 Daily Total 0536-6828 5927-7884 9130-1304 Daily Total I N T A K E [address] 445 929 2022 [address] 144 348 9672 I.V. 1977.33 977.5 982.5 3937.33 0 0 [...] O U T P U T Urine 898 557 5164 2004 I/O Urinary Drain Output (Urinary Cath Placement López) 185 134 4201 2004 Shift Total 255 547 0542 2004 NET 2415.83 837.5 307.5 3560.83 0 [...] course Parish Blackburn MD Surgery, R1 Pager: [phone] Parish Arias MD - 11:59 AM PDT [facility] Department of Surgery Blue Surgery [...] - 04/30/1259 04/30/12699 - 05/01/12 0659 Shift 8699-4304 9324-4135 1172-5426 Daily Total 3153-8872 8396-7061 6623-8701 Daily Total I N T A K E [address] 757 029 5676 [address]O. 620 581 415 0383 I.V. 1977.33 977.5 982.5 3937.33 0 0 [...] O U T P U T Urine 020 322 6411 2004 I/O Urinary Drain Output (Urinary Cath Placement López) 433 240 8532 2004 Shift Total 089 885 6981 2004 NET 2415.83 837.5 307.5 3560.83 0 [...] course Parish Blackburn MD Surgery, R1 Pager: [phone] Sasha Antony MD - 04/30/2012 7:03 AM [...] primary service. JOSE MALAGON MD BILLING INFORMATION [facility] DEPARTMENT: [id number] Place of Service:- Inpatient Date of Service: 04/30/2012 CSN: [id number] Suggested Modifier: GC - Resident Involved Suggested CPT: 68975 - Daily mgmt epidural/subarachnoid drug administration Prolonged [...] the floor later today. 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 [employer] Hypotension Fluid bolus as needed to [...] no need for intervention Dispo TRANSFER TO [facility] ONLY Sasha Antony MD - 04/29/2012 7:43 [...] making: N/a JOSE MALAGON MD BILLING INFORMATION [facility] DEPARTMENT: [id number] Place of Service:- Inpatient Date of Service: 04/29/2012 CSN: [id number] Suggested Modifier: GC - Resident Involved Suggested CPT: 89590 - Daily mgmt epidural/subarachnoid drug administration Prolonged [...] MD Department of Obstetrics & Gynecology, PGY1 [facility] Pager [phone] documented in thi s encounter Plan of [...] [facility] | [address] | [place] [address] | | | SERVICES, CORE | PARK [...] | + + + + + | [facility] | [address] | [place] [address] | | | SERVICES, CORE | PARK [...] | + + + + + | [facility] | [address] | [place] [address] | | | SERVICES, CORE | NEAL [...] | + + + + + | [facility] | [address] | [place] [address] | | | GAVIN, SAM | NEAL [...] [facility] | [address] | [place] [address] | | | SERVICES, CORE | PARK [...] | [facility] | [address] [facility] | [place] [address] | | | SERVICES, CORE | PARK [...] | + + + + + | [facility] | [address] [facility] | [place] [address] | | | SERVICES, CORE | NEAL [...] [facility] | [address] | [place] [address] | | | SERVICES, CORE | PARK [...] | + + + + + | [facility] | [address] | [place] [address] | | | SERVICES, CORE | NEAL [...] (H) | 60 - 99 mg/dL | [facility] - | | | GLUCOSE, [...] + + + | [facility] | [address] | [place], [place] | | | [facility] | [address] | [address] | | | TESTS | | | [...] | + + + + + | [facility] | [address] | [place] [address] | | | SERVICES, CORE | NEAL [...] + + + + + | [facility] | [address] | [place], [place] | | | JOHN CONTE OF [facility] | [address] | [address] | | | TESTS | | | [...] | + + + + + | [facility] | [address] | [place] [address] | | | SERVICES, CORE | [address] | | | + + + + + MAGNESIUM, PLASMA (05/01/2012 6:03 AM PDT) + +-------+ + + + | Component | Value | Ref Range | Performed | Pathologist | | | | | At | Signature | + +-------+ + + + | MAGNESIUM,P | 1.9 | 1.8 - 2.5 mg/dL | [facility] | | | LASMA | | | [...] | + + + + + | [facility] | [address] [facility] | [place] [address] | | | SERVICES, CORE | NEAL [...] | + + + + + | [facility] | [address] | [place] [address] | | | SAM ALONSO | NEAL [...] (H) | 60 - 99 mg/dL | [facility] - | | | GLUCOSE, [...] NAELAM | [address] | [place], [place] | | | [facility] | [address] | [address] | | | TESTS | | | [...] BRUNNER | [address] | [place], [place] | | | [facility] | [facility] | [address] | | | TESTS | | | [...] | + + + + + | [facility] | [address] | [place] [address] | | | SERVICES, CORE | NEAL [...] + + + | [facility] | [address] | [place] [address] | | | SERVICES, CORE | NEAL [...] [facility] | [address] | [place] [address] | | | SERVICES, [facility] | [address] | | | + [...] [facility] | [address] | [place] [address] | | | SERVICES, CORE | [address] | | | + + + + + OPERATION RECORD (04/29/2012 5:13 PM PDT) + + | Transcriptions | + + | Ruba Muhammad MD - 04/28/2012 10:30 PM PDT Date: | | 04/28/2012ttending Surgeon: Cornelia Knutson M.D.Product Coordinator(s): | | VENKATA Mcclainreoperative Diagnosis(es):Gallbladder | | [...] with an incidental finding of | | M5krzpawgulcr adenocarcinoma at her recent laparoscopic cholecystectomy foracute | | cholecystitis. Her pathology was reviewed at [facility]. She underwent aCT scan, which [...] for RSI | | was completed.Cornelia Knutson M.D.[facility] ([facility])Professor | | and Vice-Tip Printer of SurgeryThe Shahriar Nava Chair for Pancreatic Disease | | ResearchPancreatic/ HepatoBiliary and Foregut Working GroupsMail Code [id number] [facility] | | [place], [place]. [address]Noohl Fax (341) | | [phone]: [email or web address].Professor and Vice-Tip Printer of | | SurgeryThe Shahriar Nava Chair for Pancreatic Disease ResearchCopper Basin Medical Center | | [place] ([facility])Division of Gastrointestinal and General Surgery / [id number] / | | [id number] / [id number] / T: 04/28/2012 | |with electrocautery. Biopsy [...] case we needed to perform a | |Poyntelle maneuver. We then finished the dissection identifying [...] | | | |Cornelia Knutson M.D. | |[facility] ([facility]) | |Professor and Vice-Tip Printer of Surgery | |The Shahriar Nava Chair for Pancreatic Disease Research | |Pancreatic/ HepatoBiliary and Foregut Working Groups | |Mail Code [id number] | |[address] [place] [address] | |[place], [place]. [address] | | | | | |email: [email or web address] | | | | | |Cornelia Knutson M.D. | |Professor and Vice-Tip Printer of Surgery | |The Shahriar Nava Chair for Pancreatic Disease Research | |[facility] ([facility]) | |Division of Gastrointestinal and General Surgery | | | |JS / HS | |[id number] / [id number] / 58785 / | | | | | + [...] [facility] | [address] | [place] [address] | | | SERVICES, CORE | PARK [...] | + + + + + | [facility] | [address] [facility] | [place] [address] | | | SERVICES, CORE | PARK [...] | + + + + + | [facility] | [address] | [place] [address] | | | SERVICES, CORE | NEAL [...] | + + + + + | [employer] | [address] | [place] [address] | | | SERVICES, CORE | NEAL [...] in | | | | | | [facility]. No | | | | | [...] | | + +---------+ + + | [facility] DEPARTMENT OF | | | [...] [facility] | [address] | [place] [address] | | | SERVICES, CORE | PARK [...] | + + + + + | [facility] | [address] | [place] [address] | | | SERVICES, CORE | PARK [...] | + + + + + | [facility] | [address] | [place] [address] | | | SERVICES, CORE | PARK [...] | + + + + + | [facility] | [address] | [place] [address] | | | SERVICES, CORE | [address] | | | + + + + + INR (04/28/2012 2:34 PM PDT) + +-------+ + + + | Component | Value | Ref Range | Performed | Pathologist | | | | | At | Signature | + +-------+ + + + | INR | 1.11 | 0.90 - 1.20 INR | [facility] | | | | | | LABORATORY [...] | + + + + + | [facility] | [address] | [place] [address] | | | SAM ALONSO | PARK [...] - [facility] | [address] | [place], [place] | | | [facility] CONTE OF CARE | [address] | [address] | | | TESTS | | | [...] BRUNNER | [address] | [place], [place] | | | [facility] | [address] | [address] | | | TESTS | | | [...] KANNAN | [address] | [place], [place] | | | [facility]TE OF CARE | [address] | [address] | | | TESTS | | | [...] KANNAN | [address] | [place], [place] | | | [facility] | [address] | [address] | | | TESTS | | | [...] BRUNNER | [address] | [place], [place] | | | [facility] CARE | [address] | [address] | | | TESTS | | | [...] MARQUAM | [address] | [place], [place] | | | [facility] OF CARE | [address] | [address] | | | TESTS | | | [...] [facility] | [address] | [place], [place] | | | [facility] | [facility] | [address] | | | TESTS | | | [...] + + + | [facility] | [address] | [place], [place] | | | [facility] | [address] | [address] | | | TESTS | | | [...] bed. | | | | | | Ophthalmic Pathologist | | | | | | sections [...] vein. | | | | | | Ophthalmic Pathologist | | | | | | sections [...] | | | | | | [id number], international sales representative | | | | | [...] + + + | [facility] | [address] | [place] [address] | | | PATHOLOGY | [address] [...]
--- OUTSIDE RECORDS SUMMARY | ~2019-07-09 | XMS | Encounter Summary ---
Demographics + + + | Address | [address] | | | [place] [address] | + + + | Home Phone [...] Team Providers + +------+ + | Care Fast Food Services Manager Name | Role | Phone [...] [address] | | | | [address] [place], [place] | [address] | | | | | [address] | [place] [address] | | | | | | [phone] | | | | | | | [...]
--- OUTSIDE RECORDS SUMMARY | ~2019-07-09 | XMS | Encounter Summary ---
Demographics + + + | Address | [address] | | | [place] [address] | + + + | Home Phone [...] Team Providers + +------+ + | Care Interior Wirer Name | Role | Phone | + [...] | Tai Stanton, | Gallbladder | | 2013 | Visit | [place] [facility] [address] | [address] [facility] | carcinoma (HCC) | | | | [address] | [address] | (Primary Dx) | | | | Mailcode: Center | [place], [place] | | | | | [facility] and | [address] | | | | | [facility], [facility] 2 | [phone] | | | | | [place], [place] | | | | | | [address] | | | | | | [phone] | | | +--------+---------+ + + + [...] Tai Stanton MD - 05/21/2012 7:07 AM MIRIAMI saw and evaluated the patient. I agree with the findings and the plan of care as documented in the resident s note. Tai Stanton M.D. [facility] ([facility]) Professor and Vice-Soft Iron Inspector of Surgery The Shahriar Nava Chair for Pancreatic Disease Research Pancreatic/ HepatoBiliary and Foregut Working Groups Mail Code [id number] [address] [place], [place]. [address] email: [email or web address] MD - 05/17/2012 12:45 PM PDTBLUE SURGERY [...] probing. Packed with 1/4 in g auze. Claire removed, steristrips placed. Extremities: WWP, no significant [...] GARY DONOHUE MD General Surgery, R2 Pg. 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
--- OUTSIDE RECORDS SUMMARY | ~2019-07-09 | XMS | Encounter Summary ---
Demographics + + + | Address | [address] | | | [place] [address] | + + + | Home Phone [...] Team Providers + +------+ + | Care Cleaner Wall Name | Role | Phone | + [...] Mojica | Release | | | | [facility] | [address] | | | | | [facility] and | [place] [address] | | | | | Healing [address] | [phone] | | | | | [facility] [place] | | | | | | [address] | | | | | | [phone] | | | +--------+ + + + [...]
--- OUTSIDE RECORDS SUMMARY | ~2019-07-09 | XMS | Encounter Summary ---
Demographics + + + | Address | [address] | | | [place] [address] | + + + | Home Phone [...] Providers + +------+ + | Care Patient Transport Orderly Name | Role | Phone | + [...] wound | | 2013 | Visit | [place] [facility] [address] | [address] [facility] | care (Primary Dx) | | | | [address] | [address] | | | | | Mailcode: Center | [place], [place] | | | | | for Health and | [address] | | | | | [facility], [facility] 2 | [phone] | | | | | [place], [place] | | | | | | [address] | | | | | | [phone] | | | +--------+---------+ + + + [...] sooner if she wishes. Tai Stanton M.D. [facility] ([facility]) Professor and Vice-Sodder of Surgery The Shahriar Nava Chair for Pancreatic Disease Research Pancreatic/ HepatoBiliary and Foregut Working Groups Office email: [email or web address] documented in this en counter Plan of Treatment Not on filedocumented as of this encounter Visit Diagnoses + + | Diagnosis | + + | Encounter for wound care - Primary Encounter for other specified aftercare | + + documented in this encounter
--- OUTSIDE RECORDS SUMMARY | ~2019-07-09 | XMS | Encounter Summary ---
Demographics + + + | Address | [address] | | | [place] [address] | + + + | Home Phone [...] - [facility] | | | and [place] | + + + | Organization | [facility] | | | and [place] | + + + | Address | Unknown | + + + | Phone | Unavailable | + + + Support + + + + + | Name | Relationship | Address | Phone | + + + + + | Poncho Oquendo | ECON | [address] | | | | | [place] | | | | | [address] | | + + + + + | Marta Upton | ECON | [place] | | | | | [address] | | + + + + + Care Team Providers + +------+ + | Care Implementation Architect Name | Role | Phone | [...] W | | | | | | [place], | | | | | | [place] [address] | | | | | | [phone] | | | +--------+ + + + [...] [address] | | | | | | [place] [address] | | | | | | [phone] | | | | | | | | +--------+---------+ + + + documented as of this encounter Visit Diagnoses Not on filedocumented in this encounter"
--- OUTSIDE RECORDS SUMMARY | ~2019-07-09 | XMS | Encounter Summary ---
Demographics + + + | Address | [address] | | | [place] [address] | + + + | Home Phone [...] Team Providers + +------+ + | Care Mine Supervisor Name | Role | Phone | [...] + + | 06/28/ | Refill | [facility] | Zully Soto RN | Refill Request | | 2014 | | [facility] [place] | [place], [place] | | | | | [address] | [address] | | | | | [address] | | | | | | [place], 7th floor | | | | | | [place], [place] | | | | | | [address] | | | | | | [phone] | | | +--------+--------+ + + + [...]
--- OUTSIDE RECORDS SUMMARY | ~2019-07-09 | XMS | Encounter Summary ---
Demographics + + + | Address | [address] | | | [place] [address] | + + + | Home Phone [...] + +------+ + | Care Senior Java Programmer Name | Role | Phone | + +------+ + | Tomasa Wagner | PCP | | + +------+ + Encounter Details +--------+ + + + + | Date | Type | Department | Care Team | Description | +--------+ + + + + | 07/11/ | Abstract | [facility] | Tai Stanton, | | | 2012 | | [place] [facility] [address] | [address] | | | | | [address] | [address] | | | | | Mailcode: Center | [place], [place] | | | | | [facility] Health and | [address] | | | | | Healing, Building [address] | [phone] | | | | | [place], [place] | | | | | | [address] | | | | | | [phone] | | | +--------+ + + + [...]
--- OUTSIDE RECORDS SUMMARY | ~2019-07-09 | XMS | Encounter Summary ---
Demographics + + + | Address | [address] | | | [place] [address] | + + + | Home Phone [...] | Author | [facility] | | | and [place] | + + + | Organization | [facility] | | | and [place] | + + + | Address | Unknown | + + + | Phone | Unavailable | + + + Support + + + + + | Name | Relationship | Address | Phone | + + + + + | Poncho Oquendo | ECON | [address] | | | | | [place] | | | | | [address] | | + + + + + | Marta Upton | ECON | [place] | | | | | [address] | | + + + + + Care Team Providers + +------+ + | Care Private Tutors And Teachers Name | Role | Phone | + [...] | | | [facility] [address] | [facility] | | | | | [facility] | [place] [address] | | | | | [place] [address] | [phone] | | | | | [phone] | | | +--------+ + + + [...] | | | | | | [facility] [address] | | | | | | [phone] | | | | | | | | +--------+---------+ + + + documented as of this encounter Visit Diagnoses Not on filedocumented in this encounter"
--- OUTSIDE RECORDS SUMMARY | ~2019-07-09 | XMS | Encounter Summary ---
Demographics + + + | Address | [address] | | | [place] [address] | + + + | Home Phone [...] Providers + +------+ + | Care Property Handler Name | Role | Phone | [...] | MD | | | | | [facility] 4th Floor [address] | | | | | | [address] | | | | | | Mailcode: CH4S | | | | | | [facility] | | | | | | and Healing, | | | | | | Building 1,4th Floor | | | | | | [place], [place] | | | | | | [address] | | | | | | [phone] | | | +--------+ + + + [...] Zhane Pang - 04/27/2012 1:41 PM PDTOR face hardenerJeanine ,(name) called the Pre Operative [facility] on 04/27/12 (date) at 1pm(time) and requested delivery of the following inform ation to this patient: Surgery arrival date/ time:04/28/12 6am (date/time) Where to arrive AM of surgery [facility] (location) Information delivered to patient as requested. documented in this encounter Plan of Treatment Not on filedocumented as of this encounter Visit Diagnoses Not on filedocumented in this encounter"
--- OUTSIDE RECORDS SUMMARY | ~2019-07-09 | XMS | Encounter Summary ---
Demographics + + + | Address | [address] | | | [place] [address] | + + + | Home Phone [...] Author | [facility] | | | and Eduardo[place] | + + + | Organization | [facility] | | | and Eduardoana | + + + | Address | Unknown | + + + | Phone | Unavailable | + + + Support + + + + + | Name | Relationship | Address | Phone | + + + + + | Poncho Oquendo | ECON | [address] | | | | | [place] | | | | | [address] | | + + + + + | Marta Upton | ECON | [place] | | | | | [address] | | + + + + + Care Team Providers + +------+ + | Care Inspector Motor Vehicles Name | Role | Phone | + [...] | | Personal | Reinaldo, | [address] | | | | | 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, | [place], | | | | | 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 [address] | [place] [address] | | | | | neoplasm of | [address] | Phone: | | | | | other site | [place], | [phone] | | | | | in | [place] [address] | Fax: | | | | | gastrointest | Phone: | [phone] | | | | | inal tract | [phone] | | | | | | Procedures | Fax: | | | | | | CT Abdomen | [phone] | | | | | | Pelvis [...] + + | 09/25/ | Hospital | [facility] | [facility], | Personal history of | | 2013 | Encounter | [facility] | Epifanio Soler MD [address] | malignant neoplasm | | | | ONCOLOGY CLINIC [address] | [address] [place] | of other site in | | | [facility] [place] [address] | gastrointestinal | | | | [place] [address] | [phone] | tract (Primary Dx); | | | | [phone] | | Chronic low back | | [...] Aura Upton is a 52-year-old woman from [place], [place] who h as 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 Tai Stanton of the [facility] April 28, 2012. ACTIVE DIAGNOSES: 1. Presentation with biliary colic in March of 2012 status post cholecystectomy and live r biopsy by Dr. Brandon Garcia March 29, 2012, pathological specimen [id number], analyzed by Dr. Bowers of [facility] and was notable for a poorly-differentiated adenoca rcinoma of the gallbladder. Liver biopsy demonstrated mild portal inflammation. 2. On April 28, 2012, she successfully underwent an R0 resection by Dr. Tai Stanton at [facility], pathological specimen [id number] was notable for the absence of any residual carcinoma within the gallbladder bed. However, 2/8 regional ly mph nodes contained regionally metastatic disease. 3. Consultation by Dr. Elva Grey of the [facility] on May returned the recommendation for adjuvant chemoradiation therapy following [id number] as follows: Capecitabine at 750 mg/m sq [...] [address] | | | | | | [place] [address] | | | | | | [phone] | | | | | | | [...] + | MISCELLANEOUS LAB | | | [phone] | + +---------+ + + | MISCELANIOUS LAB | | | [phone] | + +---------+ + + [place] [address], [...] | | | | | | [place] [address] | | | | + + + + + + + + | Specimen | + + | Blood specimen | | (specimen) | + + + + + + + | Performing | Address | City/State/Zipcode | Phone Number | | Organization | | | | + + + + + | [facility] | [address] | [place] [address] | [phone] | + + + + + [facility] [...] + | [facility] | [address] | [place], [place] | [phone] | | [facility] | | [address] | | | - LABORATORY | | | | + + + + + | [facility] | [address] | [place], [place] | | | [facility] | | [address] [place] [address] | | | - LABORATORY | | [...] + | [facility] | [address] | [place] | [phone] | | [facility] | | [address] | | | - LABORATORY | | | | + + + + + | [facility] | [address] | [place] | | | [facility] | | [address], [facility] | | [...] mL/min/1.73m2 | [facility] | | | [place] | RATE,ESTIMATED | | MEDICAL | | | | mL/min/1.34f4Ycsv than | | CENTER - | | [...] + | [facility] | [address] | [place] | [phone] | | [facility] | | [address] | | | - LABORATORY | | | | + + + + + | [facility] | [address] | [place] | | | [facility] | | [address] | | | - [...] | | Lymphocytes | | K/uL | [facility] | | | | | | [...] + | [facility] | [address] | [place], [place] | [phone] | | [facility] | | [address] | | | - LABORATORY | | | | + + + + + | [facility] | [address] | [place], [place] | | | [facility] | | [address], [facility] | | [...] + | [facility] | [address] | [place], [place] | [phone] | | [facility] | | [address] | | | - LABORATORY | | | | + + + + + | [facility] | [address] | [place] | | | [facility] | | [address], [facility] | | [...] mL/min/1.73m2 | Timmy [facility] | | | [place] | RATE,ESTIMATED | | MEDICAL | | | | mL/min/1.08x1Tcyv than | | CENTER - | | [...] [address] | [place] | [phone] | | [facility] | | [address] | | | - LABORATORY | | | | + + + + + | [facility] | [address] | [place] | | | [facility] | | [address], [facility] | | [...] + | [facility] | [address] | [place], [place] | [phone] | | [facility] | | [address] | | | - LABORATORY | | | | + + + + + | [facility] | [address] | [place], [place] | | | [facility] | | [address], [facility] | | [...] [address] | [place] | [phone] | | [facility] | | [address] | | | - LABORATORY | | | | + + + + + | [facility] | [address] | [place], [place] | | | [facility] | | [address], [facility] | | [...] | | | | | | [place] [address] | | | | + + + [...] [address] | [place] [address] | [phone] | + + + + + documented in this encounter Visit Diagnoses + + | Diagnosis | + + | Personal history of malignant neoplasm of other site in gastrointestinal tract - | | Primary | + + | Chronic low back pain Lumbago | + + documented in this encounter
--- OUTSIDE RECORDS SUMMARY | ~2019-07-09 | XMS | Encounter Summary ---
Demographics + + + | Address | [address] | | | [place] [address] | + + + | Home Phone [...] Providers + +------+ + | Care Hat Liner Name | Role | Phone | + [...] | Medicine Clinic at | [address] | (Primary Dx); | | | | [facility] 4th Floor [address] | [address] [place], | Gallbladder cancer | | | | [address] | [place] [address] | ([facility]); Other | | | | Mailcode: [facility] | [phone] | specified | | | | [facility] | | pre-operative | | | | and Healing, | | examination | | | | Building 1,4th Floor | | | | | | [place], [place] | | | | | | [address] | | | | | | [phone] | | | +--------+---------+ + + + [...] Surgery Check in Locations Day Stay Unit [facility] [place], fourth floor Room 4516 [facility] Day Stay [facility], fourth floor Admitting [facility], ninth floor [facility] Surgery Unit [facility], sixth floor Surgery Check in Time: [...] is after office hours, call the [facility] back hoe operator at [phone] and ask them to page him or h er. Preparing For Your Surgery Video -- 7 minutes of instructions! If you have access to the Internet and would like to review our instructional video about g etting ready for your procedure day, please follow these directions: Access the [facility] website [email or web address] --> POPULAR RESOURCES --> Patient Guide --> [...] to this patient's care. JAYLA BARRON NP [facility] PREOPERATIVE MEDICINE CLINIC [address] [place] [address] I spent 20 minutes with the [...] | + +--------+ + + + | MO COLLECTION VENOUS | Routin | 04/27/2012 | [...] | | | LABORATORY | | | GABONESE | | | SERVICES, | | | [...] [facility] | [address] | [place] [address] | | | SERVICES, CORE | [address] [...] [facility] | [address] | [place] [address] | | | SERVICES, | [address] [...] [facility] | [address] | [place] [address] | | | SERVICES, | [address] [...] view image for the detailed interpretation from [employer] results. | CARDIOLOGY | + + + + + + + + | Performing | Address | City/State/Zipcode | Phone Number | | Organization | | | | + + + + + | [facility] | [address] | [place], [place] | | | CARDIOLOGY | [facility] | [address] | | + + + + + [...] + + | [facility] | [address] [facility] [address] | [place] [address] | | | OF CARE TESTS | [...]
--- OUTSIDE RECORDS SUMMARY | ~2019-07-09 | XMS | Encounter Summary ---
Demographics + + + | Address | [address] | | | [place] [address] | + + + | Home Phone [...] Providers + +------+ + | Care Body Shop Technician Name | Role | Phone | [...] 2015 | Event | [facility] | [address] | | | | | [facility] | [address] | | | | | Hospital Admitting | [place], [place] | | | | | Desk Located on the | [address] | | | | | 9th floor | [phone] | | | | | [place], [place] | | | | | | [address] | Aurea Rowell RN | | | | | | [address] | | | | | | [address] | | | | | | [place], [place] | | | | | | [address] | | +--------+ + + + + [...] 10:51 | | | | | Starting [facility] 06/06/14 at 1051, | | AM PDT | | | | | Until [facility] 06/06/14 at 1106 | | | [...]
--- OUTSIDE RECORDS SUMMARY | ~2019-07-09 | XMS | Encounter Summary ---
Demographics + + + | Address | [address] | | | [place] [address] | + + + | Home Phone [...] Providers + +------+ + | Care Hand Hardener Name | Role | Phone | + [...] | | | Reconstructive | Velma Whitfield [place], | Examination (Primary | | | | Services at [facility] | [place] [address] | Dx); Perforation of | | | | [address] | [phone] | Nasal Septum | | | | Mailcode: CH5E | | | | | | [facility] | | | | | | and Healing, | | | | | | Building 1, 5th | | | | | | Floor [place], [place] | | | | | | [address] | | | | | | [phone] | | | +--------+---------+ + + + [...] take place on the hill at the [facility]: Surgeries scheduled in the [facility] (4 North): registration is located on the 4th floor of [facility] (Day Surgery). Surgeries scheduled in the [facility]: registration is located on the 9th floor. Surgeries scheduled in [facility]: registration is located on the 6th floor. Surgeries scheduled in the [facility]: registration is located i n the [facility] on the first floor. For surgeries scheduled to take place at the [facility]: registration is l [...] If you use specialized medical equipment at [facility], please check with your provider before [...] Dept. of Otolaryngology/Head and Neck Surgery [facility] Rexford [email or web address] im, Prudencio Coello MD - 2008 12:34 [...] BTL Allergies: nkda Social History: Lives in [place]. Past smoking history, none now. No alcohol [...] wishes to sc hedule. Jose Olivia MD Corncob Pipes Assembler Facial Plastic and Reconstructive Surgery Department of Otolaryngology/Head and Neck Surgery [facility] Email - [email or web address] HISTORY: Clinic: Facial Plastic and Reconstructive [...] today. Photos obtained. She met with my plastic surgery manager maximo hirsch. Followup arranged for preop. Time spent with patient /family, reviewing studies/ recor ds 20 minutes, with >50 % of time spent in consultation and coordination of care. Virgilio Buck MD FACS Professor Facial Plastic and Reconstructive Surgery Dept. of Otolaryngology/Head and Neck Surgery [facility] tel fax email [email or web address] CURRENT PROBLEM LIST: Patient Active Problem List [...]
--- OUTSIDE RECORDS SUMMARY | ~2019-07-09 | XMS | Encounter Summary ---
Demographics + + + | Address | [address] | | | [place] [address] | + + + | Home Phone [...] Author | [facility] | | | and Eduardo[place] | + + + | Organization | [facility] | | | and Eduardoana | + + + | Address | Unknown | + + + | Phone | Unavailable | + + + Support + + + + + | Name | Relationship | Address | Phone | + + + + + | Poncho Oquendo | ECON | [address] | | | | | [place] | | | | | [address] | | + + + + + | Marta Upton | ECON | [place] | | | | | [address] | | + + + + + Care Team Providers + +------+ + | Care Quantitative Strategy Analyst Name | Role | Phone | [...] | Epifanio Soler MD [address] | ([facility]) (Primary Dx) | | | | ONCOLOGY [address] | [address] [place] | | | | | [place], | [place] [address] | | | | | [place] [address] | [phone] | | | | | [phone] | | | +--------+ + + + [...] [address] | | | | | | [place] [address] | | | | | | [phone] | | | | | | | | +--------+---------+ + + + documented as of this encounter Visit Diagnoses + + | Diagnosis | + + | 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
--- OUTSIDE RECORDS SUMMARY | ~2019-07-09 | XMS | Encounter Summary ---
Demographics + + + | Address | [address] | | | [place] [address] | + + + | Home Phone [...] [facility] | | | and [place]ardo[place] | + + + | Organization | [facility] | | | and [place]ardo[place] | + + + | Address | Unknown | + + + | Phone | Unavailable | + + + Support + + + + + | Name | Relationship | Address | Phone | + + + + + | Poncho Oquendo | ECON | [address] | | | | | [place] | | | | | [address] | | + + + + + | Marta Upton | ECON | [place] | | | | | [address] | | + + + + + Care Team Providers + +------+ + | Care Pilot Name | Role | Phone | + [...] | Epifanio Soler MD [address] | ([facility]) (Primary Dx) | | | | ONCOLOGY [address] [place] | | | | | [place], | [place] [address] | | | | | [place] [address] | [phone] | | | | | [phone] | | | +--------+ + + + [...] [address] | | | | | | [place] [address] | | | | | | [phone] | | | | | | | | +--------+---------+ + + + documented as of this encounter Visit Diagnoses + + | Diagnosis | + + | 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
--- OUTSIDE RECORDS SUMMARY | ~2019-07-09 | XMS | Encounter Summary ---
Demographics + + + | Address | [address] | | | [place] [address] | + + + | Home Phone [...] Team Providers + +------+ + | Care Division Engineer Name | Role | Phone | [...] | | | | Mailcode: Center | [place], [place] | | | | | for Health and | [address] | | | | | Healing, Building 2 | [phone] | | | | | [place], [place] | | | | | | [address] | | | | | | [phone] | | | +--------+ + + + [...]
--- OUTSIDE RECORDS SUMMARY | ~2019-07-09 | XMS | Encounter Summary ---
Demographics + + + | Address | [address] | | | [place] [address] | + + + | Home Phone | | + + + | Preferred Language | Unknown | + + + | Marital Status | | + + + | Sikhism Affiliation | Unknown | + + + | Race | Unknown | + + + | Ethnic Group | Unknown | + + + Author + + + | Author | [facility] | | | and Eduardoana | + + + | Organization | [facility] | | | and Eduardoana | + + + | Address | Unknown | + + + | Phone | Unavailable | + + + Support + + + + + | Name | Relationship | Address | Phone | + + + + + | Poncho Oquendo | ECON | [address] | | | | | [place] | | | | | [address] | | + + + + + | Marta Upton | ECON | [place] | | | | | [address] | | + + + + + [...] | | ONCOLOGY CLINIC [address] | [facility] | | | | | [address] [facility] | [place] [address] | | | | | [place] [address] | [phone] | | | | | [phone] | | | +--------+ + + + [...] [address] | | | | | | [facility] [address] | | | | | | [phone] | | | | | | | | +--------+---------+ + + + documented as of this encounter Visit Diagnoses Not on filedocumented in this encounter"
--- OUTSIDE RECORDS SUMMARY | ~2019-07-09 | XMS | Encounter Summary ---
Demographics + + + | Address | [address] | | | [place] [address] | + + + | Home Phone [...] Team Providers + +------+ + | Care News Commentator Name | Role | Phone | + [...] | Scheduling; | | 2014 | | [facility] [address] | [address] [facility] | Returning Phone Call | | | | Erickson Borges | [facility] | | | | | Mailcode: [facility] | [place], [place] | | | | | [facility] and | [address] | | | | | [place] [address] | [phone] | | | | | [place], [place] | | | | | | [address] | | | | | | [phone] | | | +--------+ + + + [...]
--- OUTSIDE RECORDS SUMMARY | ~2019-07-09 | XMS | Encounter Summary ---
Demographics + + + | Address | [address] | | | [place] [address] | + + + | Home Phone [...] Author | [facility] | | | and Eduardoana | + + + | Organization | [facility] | | | and Eduardoana | + + + | Address | Unknown | + + + | Phone | Unavailable | + + + Support + + + + + | Name | Relationship | Address | Phone | + + + + + | Poncho Oquendo | ECON | [address] | | | | | [place] | | | | | [address] | | + + + + + | Marta Upton | ECON | [place] | | | | | [address] | | + + + + + Care Team Providers + +------+ + | Care Experimental Mechanic Name | Role | Phone | [...] | | | | | Procedures | [address] | [address] [address] | | | | | [place] OFFICE | Phone: | [phone] Phone: | | | | | OUTPATIENT | [phone] | [phone] | | | | | VISIT 25 | Fax: | Fax: | | | | | MINUTES | [phone] | [phone] | +--------+--------+ + + + + Encounter Details +--------+ + + + + | Date | Type | Department | Care Team | Description | +--------+ + + + + | 10/31/ | Hospital | [facility] | [facility], | Gallbladder cancer, | | 2015 | Encounter | [facility] CTR MED[facility] | Chad Soler MD [address] | carcinoma (HCC) | | | | ONCOLOGY CLINIC [address] | [address] [place] | (Primary Dx); | | | | [facility] | [place] [address] | Neoplasm related | | | | [place] [address] | [phone] | pain (acute) | | | | [phone] | | (chronic) | +--------+ + + [...] nt from the original. Hematology/Oncology Progress Note [facility] Pt. Name/Age/: Aura Upton 53 y.o. 1960 Med. Record Number: [id number] Date of admission: 10/31/2014 Identifying Statement: Aura Upton is a 53 y.o. female from [address] [place] [address] with Recurrent Cholangiocarcinoma. The patient chart and [...] Brandon Garcia March 29, 2012, pathological specimen [id number], analyzed by Dr. Bowers of [facility] and was notable for a poorly-differentiated adenoc arcinoma of the gallbladder. Liver biopsy demonstrated mild portal inflammation. 2. On April 28, 2012, she successfully underwent an R0 resection by Dr. Tai Stanton at [facility], pathological specimen [id number] was notable for the absence of any residual carcinoma within the gallbladder bed. However, 2/8 regional lym ph nodes contained regionally metastatic disease. 3. Consultation by Dr. Elva Grey of the [facility] on May returned the recommendation for adjuvant chemoradiation therapy following [id number] as follows: Capecitabine at 750 mg/m sq [...] staging by Dr. Oziel Casillas of the [facility]. Pathological analysis was notable for 9.5 [...] 7. Consultation with Dr. Elva Grey the [facility] in June 26, 2014 who recommended additional chemotherapy was cisplatin at 75 mg meter squared on day 1 a nd gemcitabine 1250 mg per meter squared on day one and day 8 of acute 21 day cycle for 6-8 cycles. A second opinion was obtained by Dr. Richie Thayer of the [facility] iance who returned the recommendation for [...] the recommendations of Dr. Richie Thayerof the [facility] [place] with gemcitabine at 1000 mg per meter squared on day one and day 8 wi th cisplatin 25 mg meter squared on day one and day 8 of a Q 21 day cycle beginning on July 26, 2014 complicated by grade 3 neutropenia and grade [address]ocyt[address] scan of the chest, abdomen and pelvis that [facility] on September 16, 2014 demonstrated no radiographic evidence of disease. Current Assessment & Plan Domo returned to clinic with her mother to initiate cycle #5 of cisplatin/gemcitabine for recurrent cholangiocarcinoma. 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 Previous analysis at [facility] in [place] confirmed adeq uate iron stores. A request for HIGINIO therapy was denied by her insurance provider. Plan; Initiate Cycle #5 Cis/gemcitabine for recurrent cholangiocarcioma. Treatment will be continued in [place] next week. Repeat imaging after Cycle#6 and if favorable, cross over to observation. Neoplasm related pain (acute) (chronic) Overview Pain due to recurrent cholangiocarcinoma. Current Assessment & Plan Patients with terminal and malignant pain will be exempt from the requirement for a writt en pain management agreement/narcotic contract. [[facility] Provider Maldonado ndbook of [...] has been changed since signin Order [facility] [place] amitriptyline (ELAVIL) 10 mg tablet (Taking) Take 10 mg by mouth nightly. dexamethasone (DECADRON) 4 mg tablet (Taking) Take one tablet PO as directed. Number of times this order has been changed since signin [facility] [place] docusate calcium (SURFAK) 240 mg capsule (Taking) Take 240 mg by mouth as needed. Number of times this order has been changed since signin [facility] [place] fish oil 1,000 mg capsule (Taking) Take 1,000 mg by mouth Daily. Number of times this order has been changed since signin [facility] [place] HYDROcodone-acetaminophen (VICODIN) 5-500 mg per tablet (Taking) Take 1 tablet by mouth e very 4 hours as needed. Number of times this order has been changed since signin Order [facility] [place] MULTIPLE VITAMIN PO (Taking) Take by mouth Daily. Number of times this order has been changed since signin Order [facility] [place] ondansetron (ZOFRAN ODT) 8 mg disintegrating tablet (Taking) Take 8 mg by mouth every 8 h ours as needed for Nausea. Probiotic Product (PROBIOTIC DAILY PO) (Taking) Take by mouth Daily. Number of times this order has been changed since signin Order [facility] [place] Allergy: Allergies Allergen Reactions Sulfa Antibiotics Objectives: Temp: 37 C (98.6 F) BP: 111/70 mmHg Pulse: 86 Resp: 16 SpO2: 99 % on Min/Max Temp past 24 hours:Temp Av C (98.6 F) Min: 37 C (98.6 F) Max: 37 C (98.6 F) No intake or output data in the 24 hours ending 10/31/14 5778 Wt. Admission: Weight: 83.5 kg (184 lb [...] therapy ( contact Gabrielle Bean RN at [facility] or [facility]). Begin procrit today. INFORMED CONSENT: The nature and character of the proposed treatment with Cisplatin and Trimble citabine with HIGINIO therapy with Procrit and [...] for three days, on day 2,3,4 at [facility]. Gabrielle has the order and has [...] this chart may have been created with Cibiem voice recognition software. Occasi onal wrong-word or [...] 2019 | Visit | | DO [address] [facility] [facility] | | | | | | [place] [address] | | | | | | [phone] | | | | | | | | +--------+---------+ + + + documented as of this encounter Visit Diagnoses + + | Diagnosis | + + | Gallbladder cancer, carcinoma (HCC) - Primary Malignant neoplasm of gallbladder | + + | Neoplasm related pain (acute) (chronic) | + + documented in this encounter
--- OUTSIDE RECORDS SUMMARY | ~2019-07-09 | XMS | Encounter Summary ---
Demographics + + + | Address | [address] | | | [place] [address] | + + + | Home Phone [...] Team Providers + +------+ + | Care Telephone Ad Taker Name | Role | Phone [...] Mailcode: | | | | | | [place], [place] | [facility] | | | | | | [address] | for Health | | | | | | Phone: | and Healing, | | | | | | [phone] | [address], | | | | | | Fax: | 7th Floor | | | | | | [phone] | [place], [place] | | | | | | | [address] | | | | | | | Phone: | | | | | | | [phone] | | | | | | | Fax: | | | | | | | [phone] | +--------+--------+ + + + + Encounter Details +--------+---------+ + + + | Date | Type | Department | Care Team | Description | +--------+---------+ + + + | 11/01/ | Office | Hematology/Medical | Elva Grey, | Gallbladder cancer | | 2013 | Visit | Oncology at [facility] | [address] | (HCC) (Primary Dx) | | | | [address] | [address] | | | | | Mailcode: CH7M | [place] [address] | | | | | [facility] | [phone] | | | | | and Healing, | | | | | | [facility] 1, 7th | | | | | | Floor [place], [place] | | | | | | [address] | | | | | | [phone] | | | +--------+---------+ + + + [...] negative for malignancy - Adjuvant chemotherapy recommended: [place]/Cap for 4 cycles then restaging - 09/13/12-10/23/12 [...] ultrasound, this was normal. No admission to [facility], had some neupogen shots during [...] for up to 12 hours in a ar 24-hour period. ondansetron ODT 4 mg Oral [...] healthy lifestyle, I did not recommend a ar specific supplementation. Return if symptoms worsen or fail to improve. Will have follow up locally documented in this [facility] Plan of Treatment Not on filedocumented as [...]
--- OUTSIDE RECORDS SUMMARY | ~2019-07-09 | XMS | Encounter Summary ---
Demographics + + + | Address | [address] | | | [place] [address] | + + + | Home Phone [...] Author | [facility] | | | and Eduardoana | + + + | Organization | [facility] | | | and Eduardoana | + + + | Address | Unknown | + + + | Phone | Unavailable | + + + Support + + + + + | Name | Relationship | Address | Phone | + + + + + | Poncho Oquendo | ECON | [address] | | | | | [place] | | | | | [address] | | + + + + + | Marta Upton | ECON | [place] | | | | | [address] | | + + + + + Care Team Providers + +------+ + | Care Behavioral Health Assistant Name | Role | Phone | [...] | | Personal | Reinaldo, | [address] | | | | | 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, | [place], | | | | | 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 [address] | [place] [address] | | | | | neoplasm of | [address] | Phone: | | | | | other site | [place], | [phone] | | | | | in | [place] [address] | Fax: | | | | | gastrointest | Phone: | [phone] | | | | | inal tract | [phone] | | | | | | Procedures | Fax: | | | | | | CT Abdomen | [phone] | | | | | | Pelvis [...] + + | 09/25/ | Hospital | [facility] | [facility], | Personal history of | | 2013 | Encounter | MED CTR MEDICAL | Epifanio Soler MD [address] | malignant neoplasm | | | | ONCOLOGY CLINIC [address] | [address] [place] | of other site in | | | | [facility] | [place] [address] | gastrointestinal | | | | [place] [address] | [phone] | tract (Primary Dx); | | | | [phone] | | Chronic low back | | [...] Aura Upton is a 52-year-old woman from [place], [place] who h as 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 Tai Stanton of the [facility] April 28, 2012. ACTIVE DIAGNOSES: 1. Presentation with biliary colic in March of 2012 status post cholecystectomy and live r biopsy by Dr. Brandon Garcia March 29, 2012, pathological specimen [id number], analyzed by Dr. Bowers of [facility] and was notable for a poorly-differentiated adenoca rcinoma of the gallbladder. Liver biopsy demonstrated mild portal inflammation. 2. On April 28, 2012, she successfully underwent an R0 resection by Dr. Tai Stanton at [facility], pathological specimen [id number] was notable for the absence of any residual carcinoma within the gallbladder bed. However, 2/8 regional ly mph nodes contained regionally metastatic disease. 3. Consultation by Dr. Elva Grey of the [facility] on May returned the recommendation for adjuvant chemoradiation therapy following [id number] as follows: Capecitabine at 750 mg/m sq [...] [facility] | | | | | | [place] [address] | | | | | | [phone] | | | | | | | [...] + | MISCELLANEOUS LAB | | | [phone] | + +---------+ + + | MISCELANIOUS LAB | | | [phone] | + +---------+ + + CA 19-9, [...] | | | | | | [place] [address] | | | | + + + + + + + + | Specimen | + + | Blood specimen | | (specimen) | + + + + + + + | Performing | Address | City/State/Zipcode | Phone Number | | Organization | | | | + + + + + | [facility] | [address] | [place] [address] | [phone] | + + + + + [facility] [...] + | [facility] | [address] | [place], [place] | [phone] | | [facility] | | [address] | | | - LABORATORY | | | | + + + + + | [facility] | [address] | [place], [place] | | | [facility] | | [address] [place] [address] | | | - LABORATORY | | [...] + | [facility] | [address] | [place] | [phone] | | [facility] | | [address] | | | - LABORATORY | | | | + + + + + | [facility] | [address] | [place] | | | [facility] | | [address], [facility] | | | - LABORATORY [...] mL/min/1.73m2 | [facility] | | | EMIRATI | RATE,ESTIMATED | | MEDICAL | | | | mL/min/1.18k1Fqhf than | | CENTER - | | [...] + | [facility] | [address] | [place] | [phone] | | [facility] | | [address] | | | - LABORATORY | | | | + + + + + | [facility] | [address] | [place] | | | [facility] | | [address] [...] | | | | | | [facility] | | | | | | MEDICAL [...] + | [facility] | [address] | [place], [place] | [phone] | | [facility] | | [address] | | | - LABORATORY | | | | + + + + + | [facility] | [address] | [place], [place] | | | [facility] | | [address], [facility] | | | - LABORATORY [...] + | [facility] | [address] | [place], [place] | [phone] | | [facility] | | [address] | | | - LABORATORY | | | | + + + + + | [facility] | [address] | [place] | | | [facility] | | [address], [facility] | | | - LABORATORY [...] mL/min/1.73m2 | [facility] | | | EMIRATI | RATE,ESTIMATED | | MEDICAL | | | | mL/min/1.46a9Aeqk than | | CENTER - | | [...] [address] | [place] | [phone] | | [facility] | | [address] | | | - LABORATORY | | | | + + + + + | [facility] | [address] | [place] | | | [facility] | | [address], [facility] | | | - LABORATORY [...] + | [facility] | [address] | [place], [place] | [phone] | | [facility] | | [address] | | | - LABORATORY | | | | + + + + + | [facility] | [address] | [place], [place] | | | [facility] | | [address], [facility] | | | - LABORATORY [...] [address] | [place] | [phone] | | [facility] | | [address] | | | - LABORATORY | | | | + + + + + | [facility] | [address] | [place], [place] | | | [facility] | | [address], [facility] | | | - LABORATORY [...] | | | | | | [place] [address] | | | | + + + [...] [address] | [place] [address] | [phone] | + + + + + documented in this encounter Visit Diagnoses + + | Diagnosis | + + | Personal history of malignant neoplasm of other site in gastrointestinal tract - | | Primary | + + | Chronic low back pain Lumbago | + + documented in this encounter
--- OUTSIDE RECORDS SUMMARY | ~2019-07-09 | XMS | Encounter Summary ---
Demographics + + + | Address | [address] | | | [place] [address] | + + + | Home Phone [...] Team Providers + +------+ + | Care Filament Tester Name | Role | Phone | [...] | 2014 | Encounter | [facility] | [address] | | | | | Alex[place] [address] | [address] | | | | | [address] | [place], [place] | | | | | Alexis, [facility] hospital floor | [address] | | | | | [place], [place] | [phone] | | | | | [address] | | | | | | [phone] | | | +--------+ + + + [...]
--- OUTSIDE RECORDS SUMMARY | ~2019-07-09 | XMS | Encounter Summary ---
Demographics + + + | Address | [address] | | | [place] [address] | + + + | Home Phone [...] Author | [facility] | | | and Eduardoana | + + + | Organization | [facility] | | | and Eduardoana | + + + | Address | Unknown | + + + | Phone | Unavailable | + + + Support + + + + + | Name | Relationship | Address | Phone | + + + + + | Poncho Oquendo | ECON | [address] | | | | | [place] | | | | | [address] | | + + + + + | Marta Upton | ECON | [place] | | | | | [address] | | + + + + + Care Team Providers + +------+ + | Care Choke Setter Name | Role | Phone | [...] Required | | Cholangiocar | [address] | Services [address] | | | | | cinoma (HCC) | [place] | [address] | | | | | | [place], [place] | [place], | | | | | | [address] | [place] [address] | | | | | | Phone: | Phone: | | | | | | [phone] | [phone] | | | | | | Fax: | Fax: | | | | | | [phone] | [phone] | +--------+ + + + + + [...] [address] | | | | | | [address] [place], | | | | | | [place] [address] | | | | | | [phone] | | | +--------+ + + + [...] [address] | | | | | | [place] [address] | | | | | | [phone] | | | | | | | | +--------+---------+ + + + + + +--------+ + + | Name | Type | Priori | Associated Diagnoses | Order Schedule | | | | ty | | | + + +--------+ + + | Ambulatory referral | Outpatient | Routin | Cholangiocarcinoma | Ordered: 07/02/2014 | | to Nutrition | Referral | e | ([facility]) | | | Services | | | | | + + +--------+ + + documented as of this encounter Visit Diagnoses + + | Diagnosis | + + | 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
--- OUTSIDE RECORDS SUMMARY | ~2019-07-09 | XMS | Encounter Summary ---
Demographics + + + | Address | [address] | | | [place] [address] | + + + | Home Phone [...] | Author | [facility] | | | and Eduardoana | + + + | Organization | [facility] | | | and Eduardoana | + + + | Address | Unknown | + + + | Phone | Unavailable | + + + Support + + + + + | Name | Relationship | Address | Phone | + + + + + | Poncho Oquendo | ECON | [address] | | | | | [place] | | | | | [address] | | + + + + + | Marta Upton | ECON | [place] | | | | | [address] | | + + + + + Care Team Providers + +------+ + | Care Application Development Intern Name | Role | Phone | [...] STREET | | | | | FROM [facility] | [place], | [place], | | | | | LABS/PORT | [place] [address] | [place] [address] | | | | | 6 HOUR RX | Phone: | Phone: | | | | | Procedures | [phone] | [phone] | | | | | [facility] | Fax: | Fax: | | | | | FOLLOW UP | [phone] | [phone] | +--------+--------+ + + + + Encounter [...] Dx); Liver | | | | [address] [place] | [place] [address] | metastases (HCC); | | | | [place] [address] | [phone] | Stage 3a chronic | | | | [phone] | | kidney disease; | | | [...] fr om the original. Hematology-Oncology Progress Note [facility] Pt. Name/Age/: Aura Upton 56 y.o. 1960 CSN: [id number] Date of service: 05/20/2017 Provider: Vladimir Robles [...] adjustment of her ch emotherapy, specifically the cis-duckwater given her renal dysfunction. 1. Proceed with day 1, cycle 1 of dose adjusted cis-duckwater and gemcitabine as ordered. 2. Increase OxyContin [...] nausea, has decided to t ry palliative cis-duckwater/gemcitabine again to which she has responded in [...] this chart may have been created with RateSetter voice recognition software. Occasi onal wrong-word or [...] [facility] | | | | | | [place] [address] | | | | | | [phone] | | | | | | | [...]
--- OUTSIDE RECORDS SUMMARY | ~2019-07-09 | XMS | Encounter Summary ---
Demographics + + + | Address | [address] | | | [place] [address] | + + + | Home Phone [...] | Author | [facility] | | | and Eduardoana | + + + | Organization | [facility] | | | and Eduardoana | + + + | Address | Unknown | + + + | Phone | Unavailable | + + + Support + + + + + | Name | Relationship | Address | Phone | + + + + + | Poncho Oquendo | ECON | [address] | | | | | [place] | | | | | [address] | | + + + + + | Marta Upton | ECON | [place] | | | | | [address] | | + + + + + [...] 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, | [address] [place]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 | MD [address] | [place], | | | | | (HCC) | [address] | [place] [address] | | | | | Procedures | [place], | Phone: | | | | | [place] | [place] [address] | [phone] | | | | | DIPHENHYDRAM | Phone: | Fax: | | | | | INE HCL | [phone] | [phone] | | | | | INJECTIO, [address] | Fax: | | | | | | [place] | [phone] | | | | | | ONDANSETRON [...] | | | | | | BIOSIMIL [place] | | | | | | [...] + + | 05/21/ | Hospital | [facility] | Mathieu Langford | Gallbladder cancer, | | 2017 | Encounter | MED CTR CHEMO | MD Epifanio [address] | carcinoma (HCC) | | | | INFUSION [address] | [address] [place] | | | | | [place], | [place] [address] | | | | | [place] [address] | [phone] | | | | | [phone] | | | +--------+ + + + [...] [facility] | | | | | | [place] [address] | | | | | | [phone] | | | | | | | [...]
--- OUTSIDE RECORDS SUMMARY | ~2019-07-09 | XMS | Encounter Summary ---
Demographics + + + | Address | [address] | | | [place] [address] | + + + | Home Phone [...] | Author | [facility] | | | and Eduardoana | + + + | Organization | [facility] | | | and Eduardoana | + + + | Address | Unknown | + + + | Phone | Unavailable | + + + Support + + + + + | Name | Relationship | Address | Phone | + + + + + | Poncho Oquendo | ECON | [address] | | | | | [place] | | | | | [address] | | + + + + + | Marta Upton | ECON | [place] | | | | | [address] | | + + + + + Care Team Providers + +------+ + | Care Demand Generator Manager Name | Role | Phone | [...] | | | | | Procedures | [address] | [place] | | | | | [place] OFFICE | Phone: | [address] Phone: | | | | | OUTPATIENT | [phone] | [phone] | | | | | VISIT 25 | Fax: | Fax: | | | | | MINUTES | [phone] | [phone] | +--------+--------+ + + + + Encounter Details +--------+ + + + + | Date | Type | Department | Care Team | Description | +--------+ + + + + | 05/21/ | Hospital | [facility] | Mathieu Langford | Gallbladder cancer, | | 2017 | Encounter | MED CTR MEDICAL | MD Epifanio [address] | carcinoma (HCC) | | | | ONCOLOGY CLINIC [address] | [address] | (Primary Dx) | | | | [address] [place] | [place] [address] | | | | | [place] [address] | [phone] | | | | | [phone] | | | +--------+ + + + [...] erent from the original. Hem-Onc Progress Note [facility] Pt. Name/Age/: Aura Upton 55 y.o. 1960 Med. Record Number: [id number] Date of admission: 05/21/2016 Assessment and plan: [...] Electronically signed by: Mathieu Langford, 05/21/2016 9:08 [facility] TIME SPENT 20 MIN. > 50% AT BEDSIDE, WITH FAMILY/PATIENT IN CARE AND SPECIAL EFFECTS PERSON ON UNIT AND CO ORDINATION OF CARE Portions of this chart may have been created with Boqii voice recognition software. Occasi onal wrong-word or [...] and 4 hour treatment. (Dr. Najera o ga). She is having concerns about an immune [...] BLVD | | | | | | [place] [address] | | | | | | [phone] | | | | | | | [...] [place] | | | | | | [address] | | | | + + + + + + + + | Specimen | + + | Blood specimen | | (specimen) | + + + + + + + | Performing | Address | City/State/Zipcode | Phone Number | | Organization | | | | + + + + + | [facility] | [address] | [place] [address] | [phone] | + + + + + Lactate [...] [address] | [place] | [phone] | | [facility] | | [address] | | | - LABORATORY | | [...] | 0.97 | 0.60 - 1.30 | [facility] | | | | | mg/dL | [facility] | | | | | | MEDICAL | | | | | | CENTER - | | | | | | LABORATORY | | + + + + + + | eGFR if not | 60Comment: GLOMERULAR | >=60 | [facility] | | | | FILTRATION | mL/min/1.73m2 | [facility] | | | SYRIAN | RATE,ESTIMATED | | MEDICAL | | | | mL/min/1.27i3Jlqo than | | CENTER - | | [...] [address] | [place] | [phone] | | [facility] | | [address] | | | - LABORATORY | | [...] 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
--- OUTSIDE RECORDS SUMMARY | ~2019-07-09 | XMS | Encounter Summary ---
Demographics + + + | Address | [address] | | | [place] [address] | + + + | Home Phone [...] + +------+ + | Care Director Of District Office Name | Role | Phone | + [...] Francesco | | | | | at [facility] | [facility] | | | | | [address] | [place] [address] | | | | | [address] | | | | | | [place], 2nd floor | | | | | | [place], [place] | | | | | | [address] | | | | | | [phone] | | | +--------+ + + + [...] view image for the detailed interpretation from [employer] results. | CARDIOLOGY | + + + + + + + + | Performing | Address | City/State/Zipcode | Phone Number | | Organization | | | | + + + + + | [facility] | [address] | [place], [place] | | | CARDIOLOGY | [address] | [address] | | + + + + + documented in this encounter Visit Diagnoses Not on filedocumented in this encounter
--- OUTSIDE RECORDS SUMMARY | ~2019-07-09 | XMS | Encounter Summary ---
Demographics + + + | Address | [address] | | | [place] [address] | + + + | Home Phone [...] Providers + +------+ + | Care Water Taxi Driver Name | Role | Phone | + +------+ + | Prudencio Isaac MD | PCP | | + +------+ + Encounter Details +--------+ + + + + | Date | Type | Department | Care Team | Description | +--------+ + + + + | 05/11/ | Telephone | Digestive Health | Tai Stanton, | | | 2012 | | [place] at [address] | [address] | | | | | [address] | Surendra Carreon | | | | | Mailcode: Center | [place], [place] | | | | | [facility] and | [address] | | | | | Healing, Building 2 | [phone] | | | | | [place], [place] | | | | | | [address] | | | | | | [phone] | | | +--------+ + + + [...]
--- OUTSIDE RECORDS SUMMARY | ~2019-07-09 | XMS | Encounter Summary ---
Demographics + + + | Address | [address] | | | [place] [address] | + + + | Home Phone [...] Team Providers + +------+ + | Care Sliver Chopper Name | Role | Phone | + [...] | | | | Mailcode: Center | [place], [place] | | | | | [facility] and | [address] | | | | | [facility] 2 | [phone] | | | | | [place], [place] | | | | | | [address] | | | | | | [phone] | | | +--------+ + + + [...]
--- OUTSIDE RECORDS SUMMARY | ~2019-07-09 | XMS | Encounter Summary ---
Demographics + + + | Address | [address] | | | [place] [address] | + + + | Home Phone | | + + + | Preferred Language | Unknown | + + + | Marital Status | Single | + + + | Mandaeism Affiliation | NON | + + + [...] Providers + +------+ + | Care Provider Network Mgr Name | Role | Phone | [...] | | | | | Procedures | [place], [place] | [place], [place] | | | | | [place]ULT [place] | [address] | [address] | | | | | ENT / FACIAL | Phone: | Phone: | | | | | PLASTIC | [phone] | [phone] | | | | | SURGERY | Fax: | Fax: | | | | | | [phone] | [phone] | +--------+--------+ + + + + Encounter [...] | | | Reconstructive | Velma [address] [place], | | | | | Services at [facility] | [place] [address] | | | | | [address] | [phone] | | | | | Mailcode: [id number] | | | | | [facility] | | | | | | and Healing, | | | | | | Building 1, 5th | | | | | | Floor [place], [place] | | | | | | [address] | | | | | | [phone] | | | +--------+---------+ + + + [...] of Otolaryngology/Head and Neck Surgery [facility] tel fax email [email or web address] documented in this encounte r Plan of Treatment Not on filedocumented as of this encounter Visit Diagnoses + + | Diagnosis | + + | Postop check - Primary Follow-up examination, following unspecified surgery | + + documented in this encounter"
--- OUTSIDE RECORDS SUMMARY | ~2019-07-09 | XMS | Encounter Summary ---
Demographics + + + | Address | [address] | | | [place] [address] | + + + | Home Phone [...] Team Providers + +------+ + | Care Evaluation Assistant Name | Role | Phone | + +------+ + | Valeriy Carmona MD | PCP | | + +------+ + Encounter Details +--------+ + + + + | Date | Type | Department | Care Team | Description | +--------+ + + + + | 04/07/ | Telephone | Digestive Health | Tai Stanton, | | | 2012 | | [place] at [facility] [address] | [address] | | | | | [address] | Surendra Carreon | | | | | Mailcode: Center | [place], [place] | | | | | for Health and | [address] | | | | | Healing, Building 2 | [phone] | | | | | [place], [place] | | | | | | [address] | | | | | | [phone] | | | +--------+ + + + [...]
--- OUTSIDE RECORDS SUMMARY | ~2019-07-09 | XMS | Encounter Summary ---
Demographics + + + | Address | [address] | | | [place] [address] | + + + | Home Phone [...] | [facility] | | | and Eduardoana | + + + | Organization | [facility] | | | and Eduardoana | + + + | Address | Unknown | + + + | Phone | Unavailable | + + + Support + + + + + | Name | Relationship | Address | Phone | + + + + + | Poncho Oquendo | ECON | [address] | | | | | [place] | | | | | [address] | | + + + + + | Marta Upton | ECON | [place] | | | | | [address] | | + + + + + Care Team Providers + +------+ + | Care Medical Charge Entry Specialist Name | Role | Phone | [...] | | Personal | Reinaldo, | [address] | | | | | 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, | [place], | | | | | 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 [address] | [place] [address] | | | | | neoplasm of | [address] | Phone: | | | | | other site | [place], | [phone] | | | | | in | [place] [address] | Fax: | | | | | gastrointest | Phone: | [phone] | | | | | inal tract | [phone] | | | | | | Procedures | Fax: | | | | | | CT Abdomen | [phone] | | | | | | Pelvis [...] | | Personal | Reinaldo, | [address] [place] | | | | | 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, | [place], | | | | | 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 [address] | [place] [address] | | | | | neoplasm of | [address] | Phone: | | | | | other site | [place], | [phone] | | | | | in | [place] [address] | Fax: | | | | | gastrointest | Phone: | [phone] | | | | | inal tract | [phone] | | | | | | Procedures | Fax: | | | | | | CT Abdomen | [phone] | | | | | | Pelvis w | | | | | | | Contrast | | | +--------+--------+ + + + + Encounter Details +--------+ + + + + | Date | Type | Department | Care Team | Description | +--------+ + + + + | 09/16/ | Hospital | [facility] | Reinaldo, | Personal history of | | 2014 | Encounter | MED CTR [facility] [address] | Epifanio Soler MD [address] | malignant neoplasm | | | | [place], | [address] [place] | of other site in | | | | [place] [address] | [place] [address] | gastrointestinal | | | | [phone] | [phone] | tract | | | | | [...] [address] | | | | | | [place] [address] | | | | | | [phone] | | | | | | | [...]
--- OUTSIDE RECORDS SUMMARY | ~2019-07-09 | XMS | Encounter Summary ---
Demographics + + + | Address | [address] | | | [place] [address] | + + + | Home Phone [...] Providers + +------+ + | Care Manufacturing Storeperson Name | Role | Phone | + [...] [address] | | | | [address] [place], [place] | [address] | | | | | [address] | [place] [address] | | | | | | [phone] | | | | | | | [...]
--- OUTSIDE RECORDS SUMMARY | ~2019-07-09 | XMS | Encounter Summary ---
Demographics + + + | Address | [address] | | | [place] [address] | + + + | Home Phone [...] [facility] | | | and Eduardoana | + + + | Organization | [facility] | | | and Eduardoana | + + + | Address | Unknown | + + + | Phone | Unavailable | + + + Support + + + + + | Name | Relationship | Address | Phone | + + + + + | Poncho Oquendo | ECON | [address] | | | | | [place] | | | | | [address] | | + + + + + | Marta Upton | ECON | [place] | | | | | [address] | | + + + + + Care Team Providers + +------+ + | Care Psychology Associate Name | Role | Phone | [...] | Epifanio Soler MD [address] | ([facility]) (Primary Dx) | | | | ONCOLOGY [address] | [address] [place] | | | | | [place], | [place] [address] | | | | | [place] [address] | [phone] | | | | | [phone] | | | +--------+ + + + [...] [address] | | | | | | [place] [address] | | | | | | [phone] | | | | | | | | +--------+---------+ + + + documented as of this encounter Visit Diagnoses + + | Diagnosis | + + | 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
--- OUTSIDE RECORDS SUMMARY | ~2019-07-09 | XMS | Encounter Summary ---
Demographics + + + | Address | [address] | | | [place] [address] | + + + | Home Phone [...] | Author | [facility] | | | and Eduardoana | + + + | Organization | [facility] | | | and Eduardoana | + + + | Address | Unknown | + + + | Phone | Unavailable | + + + Support + + + + + | Name | Relationship | Address | Phone | + + + + + | Poncho Oquendo | ECON | [address] | | | | | [place] | | | | | [address] | | + + + + + | Marta Upton | ECON | [place] | | | | | [address] | | + + + + + Care Team Providers + +------+ + | Care Workers Compensation Manager Name | Role | Phone | + +------+ + | Valeriy Carmona DO | PCP | | + +------+ + Encounter Details +--------+ + + + + | Date | Type | Department | Care Team | Description | +--------+ + + + + | 05/13/ | Orders Only | [facility] | Marcelina Johnson, | | | 2017 | | MED CTR CHEMO | RN | | | | | INFUSION [address] | | | | | | [place], | | | | | | [place] [address] | | | | | | [phone] | | | +--------+ + + + [...] | | | | | [place] [address] | | | | | | [phone] | | | | | | | | +--------+---------+ + + + documented as of this encounter Visit Diagnoses Not on filedocumented in this encounter"
--- OUTSIDE RECORDS SUMMARY | ~2019-07-09 | XMS | Encounter Summary ---
Demographics + + + | Address | [address] | | | [place] [address] | + + + | Home Phone [...] + | Author | [facility] | | | and Eduardoana | + + + | Organization | [facility] | | | and Eduardoana | + + + | Address | Unknown | + + + | Phone | Unavailable | + + + Support + + + + + | Name | Relationship | Address | Phone | + + + + + | Poncho Oquendo | ECON | [address] | | | | | [facility] [place] [place] | | | | | [address] | | + + + + + | Marta Upton | ECON | [place], [place] | | | | | [address] | | + + + + + Care Team Providers + +------+ + | Care Environmental Health Physician Name | Role | Phone | + +------+ + PCP | Unavailable | + +------+ + Encounter Details +--------+ + + + + | Date | Type | Department | Care Team | Description | +--------+ + + + + | 07/15/ | Hospital | [facility] | | | | 2000 | Encounter | MED CTR GENERIC OP | | | | | | CONV DEPT [address] | | | | | | [place], | | | | | | [place] [address] | | | | | | [phone] | | | +--------+ + + + [...] | | | | | [place] [address] | | | | | | [phone] | | | | | | | | +--------+---------+ + + + documented as of this encounter Visit Diagnoses Not on filedocumented in this encounter"
--- OUTSIDE RECORDS SUMMARY | ~2019-07-09 | XMS | Encounter Summary ---
Demographics + + + | Address | [address] | | | [place] [address] | + + + | Home Phone [...] Author | [facility] | | | and Eduardoana | + + + | Organization | [facility] | | | and Eduardoana | + + + | Address | Unknown | + + + | Phone | Unavailable | + + + Support + + + + + | Name | Relationship | Address | Phone | + + + + + | Poncho Oquendo | ECON | [address] | | | | | [place] | | | | | [address] | | + + + + + | Marta Upton | ECON | [place] | | | | | [address] | | + + + + + Care Team Providers + +------+ + | Care Oil Deliverer Name | Role | Phone | [...] | | Carcinoma | Reinaldo, | [address] [place] | | | | | of gall | Epifanio C, | [place], | | | | | bladder | MD [address] | [place] [address] | | | | | (HCC) | [address] | Phone: | | | | | Procedures | [place], | [phone] | | | | | CT Chest | [place] [address] | Fax: | | | | | Abdomen | Phone: | [phone] | | | | | Pelvis w | [phone] | | | | | | Contrast | Fax: | | | | | | | [phone] | | +--------+--------+ + + + + [...] | | Carcinoma | Reinaldo, | [address] [place] | | | | | of gall | Epifanio C, | [place], | | | | | bladder | MD [address] | [place] [address] | | | | | (HCC) | [address] | Phone: | | | | | Procedures | [place], | [phone] | | | | | CT Chest | [place] [address] | Fax: | | | | | Abdomen | Phone: | [phone] | | | | | Pelvis w | [phone] | | | | | | Contrast | Fax: | | | | | | | [phone] | | +--------+--------+ + + + + Encounter Details +--------+ + + + + | Date | Type | Department | Care Team | Description | +--------+ + + + + | 12/17/ | Hospital | [facility] | Reinaldo, | Carcinoma of gall | | 2015 | Encounter | MED CTR CT [address] | Epifanio Soler MD [address] | bladder (HCC) | | | | [place], | [address] [place] | | | | | [place] [address] | [place] [address] | | | | | [phone] | [phone] | | | | | | | [...] [address] | | | | | | [place] [address] | | | | | | [phone] | | | | | | | [...] intravenous administration of 100 mL | | [id number] contrast. Oral contrast was administered. Multiplanar reformatted [...]
--- OUTSIDE RECORDS SUMMARY | ~2019-07-09 | XMS | Encounter Summary ---
Demographics + + + | Address | [address] | | | [place] [address] | + + + | Home Phone [...] Providers + +------+ + | Care Body Welder Name | Role | Phone | [...] | | | Alexis [address] | [facility] | | | | | [address] | [place], [place] | | | | | Alexis, 7th floor | [address] | | | | | [place], [place] | [phone] | | | | | [address] | | | | | | [phone] | | | +--------+ + + + [...]
--- OUTSIDE RECORDS SUMMARY | ~2019-07-09 | XMS | Encounter Summary ---
Demographics + + + | Address | [address] | | | [place] [address] | + + + | Home Phone [...] Team Providers + +------+ + | Care Loan Operations Specialist Name | Role | Phone | + +------+ + | Tomasa Wagner | PCP | | + +------+ + Encounter Details +--------+ + + + + | Date | Type | Department | Care Team | Description | +--------+ + + + + | 10/27/ | Abstract | Digestive Health | Tai Stanton, | | | 2012 | | [place] [facility] [address] | [address] | | | | | [address] | Surendra Carreon | | | | | Mailcode: Center | [place], [place] | | | | | [facility] and | [address] | | | | | Healing, Building [address] | [phone] | | | | | [place], [place] | | | | | | [address] | | | | | | [phone] | | | +--------+ + + + [...]
--- OUTSIDE RECORDS SUMMARY | ~2019-07-09 | XMS | Encounter Summary ---
Demographics + + + | Address | [address] | | | [place] [address] | + + + | Home Phone [...] Providers + +------+ + | Care Audio Technician Name | Role | Phone | [...] & | Diagnoses | [facility] | [facility]wh Executive Officer Special Warfare Team Onc | | | | Gynecology | Complex | Epic Dept | [address] | | | | | Cystic [place], | | [address] | | | | | elevated | | [place] | | | | | [address] per | | Alexis, 7th | | | | | appt notes | | floor | | | | | | | [place], [place] | | | | | | | [address] | | | | | | | Phone: | | | | | | | [phone] | | | | | | | Fax: | | | | | | | [phone] | +--------+--------+ + + + + Encounter Details +--------+---------+ + + + | Date | Type | Department | Care Team | Description | +--------+---------+ + + + | 06/18/ | Office [facility] | Miguel Seymour, | 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 | [facility] | [address] | (HCC) (Primary Dx) | | | | [address] | [facility] | | | | | [address] | [place], [place] | | | | | Alexis, [facility] floor | [address] | | | | | [place], [place] | [phone] | | | | | [address] | | | | | | [phone] | | | +--------+---------+ + + + [...] RN - 06/18/2014 10:51 AM PDTPlease call [facility] scheduling to set up a post op follow up in 5-6 weeks for a pelvic exam. [phone], ok to coordinat e with an apt with or Romy (ok if it is longer than 6 weeks) if you like. documented in this encounter Progress Notes Pavithra Aviles MD - 06/18/2014 10:34 AM PDTFormatting of this note might be different fro m the original. RESIST COATER DEVELOPER ONCOLOGY CONSULTATION Aura Upton 06/18/2014 PCP: SANDY [...] History Narrative Pt has SO. Lives in [facility]. 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 Likes to camp, entertain. REVIEW OF [...] sent to Cytology: - Please see corresponding [id number] B: Left ovary and fallopian tube, salpingo-oophorectomy: [...] excised lymph nodes from the gallbladder bed ([id number], s lides E3-4). Additionally, immunohistochemical staining on [...] Aviles MD Obstetrics and Gynecology, PGY1 Pager #[phone] I saw and evaluated the patient. I [...]
--- OUTSIDE RECORDS SUMMARY | ~2019-07-09 | XMS | Encounter Summary ---
Demographics + + + | Address | [address] | | | [place] [address] | + + + | Home Phone [...] Author | [facility] | | | and Eduardoana | + + + | Organization | [facility] | | | and Eduardoana | + + + | Address | Unknown | + + + | Phone | Unavailable | + + + Support + + + + + | Name | Relationship | Address | Phone | + + + + + | Poncho Oquendo | ECON | [address] | | | | | [place] | | | | | [address] | | + + + + + | Marta Upton | ECON | [place] | | | | | [address] | | + + + + + Care Team Providers + +------+ + | Care Skate Hop Name | Role | Phone | + [...] [place] | | | | | [address] [place] | [place] [address] | | | | | [place] [address] | [phone] | | | | | [phone] | | | +--------+ + + + [...] [address] | | | | | | [place] [address] | | | | | | [phone] | | | | | | | | +--------+---------+ + + + documented as of this encounter Visit Diagnoses + + | Diagnosis | + + | Gallbladder cancer, 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
--- OUTSIDE RECORDS SUMMARY | ~2019-07-09 | XMS | Encounter Summary ---
Demographics + + + | Address | [address] | | | [place] [address] | + + + | Home Phone [...] Providers + +------+ + | Care Thread Inspector Name | Role | Phone | + +------+ + | Tomasa Wagner | PCP | | + +------+ + Encounter Details +--------+ + + + + | Date | Type | Department | Care Team | Description | +--------+ + + + + | 10/02/ | Abstract | Digestive Health | Tai Stanton, | | | 2012 | | [place] [facility] [address] | [address] | | | | | [address] | Surendra Carreon | | | | | Mailcode: Center | [place], [place] | | | | | [facility] Health and | [address] | | | | | Healing, [address] | [phone] | | | | | [place], [place] | | | | | | [address] | | | | | | [phone] | | | +--------+ + + + [...]
--- OUTSIDE RECORDS SUMMARY | ~2019-07-09 | XMS | Encounter Summary ---
Demographics + + + | Address | [address] | | | [place] [address] | + + + | Home Phone [...] | Author | [facility] | | | and Eduardoana | + + + | Organization | [facility] | | | and Eduardoana | + + + | Address | Unknown | + + + | Phone | Unavailable | + + + Support + + + + + | Name | Relationship | Address | Phone | + + + + + | Poncho Oquendo | ECON | [address] | | | | | [place] | | | | | [address] | | + + + + + | Marta Upton | ECON | [place] | | | | | [address] | | + + + + + Care Team Providers + +------+ + | Care Tear Down Worker Name | Role | Phone | [...] cancer, | | 2017 | | [facility] | Epifanio Soler MD [address] | carcinoma (HCC) | | | | [facility] CLINIC [address] [place] | | | | | [address] | [place] [address] | | | | | [place] [address] | [phone] | | | | | [phone] | | | +--------+ + + + [...] [address] | | | | | | [place] [address] | | | | | | [phone] | | | | | | | | +--------+---------+ + + + documented as of this encounter Visit Diagnoses + + | Diagnosis | + + | Gallbladder cancer, carcinoma (HCC) Malignant neoplasm of gallbladder | + + documented in this encounter"
--- OUTSIDE RECORDS SUMMARY | ~2019-07-09 | XMS | Encounter Summary ---
Demographics + + + | Address | [address] | | | [place] [address] | + + + | Home Phone [...] Providers + +------+ + | Care Control Chemist Name | Role | Phone | + [...] Gallbladder | | 2013 | Visit | [facility] [address] | [address] [facility] | carcinoma (HCC) | | | | [address] | [address] | (Primary Dx) | | | | Mailcode: Center | [place], [place] | | | | | [facility] and | [address] | | | | | [facility], [facility] 2 | [phone] | | | | | [place], [place] | | | | | | [address] | | | | | | [phone] | | | +--------+---------+ + + + [...] the resident s note. Tai Stanton M.D. [facility] ([facility]) Professor and Vice-Logistics Coordinator of Surgery The [facility] Pancreatic Disease Research Pancreatic/ HepatoBiliary and Foregut Working Groups Mail Code [id number] [address] [place], [place]. [address] email: [email or web address] MD - 05/17/2012 12:45 PM PDTBLUE [...] this case and agree with the referring lesy cortes's observations. Sections from the gallbladder show [...] GARY DONOHUE MD General Surgery, R2 Pg. [id number] documented in this encounter Plan of Treatment Not on filedocumented as of this encounter Visit Diagnoses + + | Diagnosis | + + | Gallbladder 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
--- OUTSIDE RECORDS SUMMARY | ~2019-07-09 | XMS | Encounter Summary ---
Demographics + + + | Address | [address] | | | [place] [address] | + + + | Home Phone [...] Team Providers + +------+ + | Care Buyer Broker Name | Role | Phone | [...] Pharmacy | | | | | | [address] | | | | | | [place], [place] | | | | | | [address] | | | | | | [phone] | | | +--------+ + + + [...]
--- OUTSIDE RECORDS SUMMARY | ~2019-07-09 | XMS | Encounter Summary ---
Demographics + + + | Address | [address] | | | [place] [address] | + + + | Home Phone [...] Team Providers + +------+ + | Care Production Stage Manager Name | Role | Phone | [...] | | | | | cancer | [address] | [address] | | | | | (HCC) | [address] | [facility] | | | | | Procedures | [address] | [address] | | | | | CONSULT TO | [facility] [place] | [facility] [place] | | | | | HEMATOLOGY / | [address] | [address] Phone: | | | | | ONCOLOGY | Phone: | [phone] | | | | | PRACTICE | [phone] | Fax: | | | | | | Fax: | [phone] | | | | | | [phone] | | + +--------+ + + + [...] | cancer | [address] | [address] [facility] | | | | | (HCC) | Francesco Agosto | [address] | | | | | Procedures | [address] | [address], | | | | | CONSULT TO | [place], [place] | [place] | | | | | SURGERY - | [address] | [address] | | | | | GENERAL | Phone: | Phone: | | | | | | [phone] | [phone] | | | | | | Fax: | Fax: | | | | | | [phone] | [phone] | +--------+--------+ + + + + Encounter Details +--------+ + + + + | Date | Type | Department | Care Team | Description | +--------+ + + + + | 06/14/ | Regional Psychiatric Director | [facility] | Miguel Seymour, | Gallbladder cancer | | 2015 | | [facility] | [address] | (HCC) (Primary Dx) | | | | Alexis [address] | [facility] | | | | | [address] | [place], [place] | | | | | Alexis, [facility] floor | [address] | | | | | [place], [place] | [phone] | | | | | [address] | | | | | | [phone] | | | +--------+ + + + [...]
--- OUTSIDE RECORDS SUMMARY | ~2019-07-09 | XMS | Encounter Summary ---
Demographics + + + | Address | [address] | | | [place] [address] | + + + | Home Phone | | + + + | Preferred Language | Unknown | + + + | Marital Status | | + + + | Scientology Affiliation | Unknown | + + + | Race | Unknown | + + + | Ethnic Group | Unknown | + + + Author + + + | Author | [facility] | | | and Eduardoana | + + + | Organization | [facility] | | | and Eduardoana | + + + | Address | Unknown | + + + | Phone | Unavailable | + + + Support + + + + + | Name | Relationship | Address | Phone | + + + + + | Poncho Oquendo | ECON | [address] | | | | | [place] | | | | | [address] | | + + + + + | Marta Upton | ECON | [place] | | | | | [address] | | + + + + + Care Team Providers + +------+ + | Care Student Outreach Coordinator Name | Role | Phone | [...] | (Primary Dx) | | | | [place], | | | | | | [place] [address] | | | | | | [phone] | | | +--------+ + + + [...] [address] | | | | | | [place] [address] | | | | | | [phone] | | | | | | | | +--------+---------+ + + + documented as of this encounter Visit Diagnoses + + | Diagnosis | + + | Gallbladder cancer, 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
--- OUTSIDE RECORDS SUMMARY | ~2019-07-09 | XMS | Encounter Summary ---
Demographics + + + | Address | [address] | | | [place] [address] | + + + | Home Phone [...] Author | [facility] | | | and Eduardoana | + + + | Organization | [facility] | | | and Eduardoana | + + + | Address | Unknown | + + + | Phone | Unavailable | + + + Support + + + + + | Name | Relationship | Address | Phone | + + + + + | Poncho Oquendo | ECON | [address] | | | | | [place] | | | | | [address] | | + + + + + | Marta Upton | ECON | [place] | | | | | [address] | | + + + + + Care Team Providers + +------+ + | Care Metal Container Maker Name | Role | Phone | + +------+ + | Valeriy Carmona DO | PCP | | + +------+ + Encounter Details +--------+ + + + + | Date | Type | Department | Care Team | Description | +--------+ + + + + | 12/17/ | Hospital | [facility] | [facility], | Gallbladder cancer, | | 2015 | Encounter | [facility] | Epifanio Soler MD [address] | carcinoma (HCC) | | | | INFUSION [address] | [address] [place] | (Primary Dx); | | | | [place], | [place] [address] | Carcinoma of gall | | | | [place] [address] | [phone] | bladder (HCC); | | | | [phone] | | Neoplasm related | | | [...] [address] | | | | | | [place] [address] | | | | | | [phone] | | | | | | | [...] [address] | [place] | [phone] | | [facility] | | [address] | | | - LABORATORY | | [...] | 0.66 | 0.60 - 1.30 | [facility] | | | | | mg/dL [...] | | MEDICAL | | | | mL/min/1.07l0Fspx than | | CENTER - | | [...] [address] | [place] | [phone] | | [facility] | | [address] | | | - LABORATORY | | [...] [address] | [place] | [phone] | | [facility] | | [address] | | | - LABORATORY | | [...] | | | | | | [place] [address] | | | | + + + + + + + + | Specimen | + + | Blood specimen | | (specimen) | + + + + + + + | Performing | Address | City/State/Zipcode | Phone Number | | Organization | | | | + + + + + | [facility] | [address] | [place] [address] | [phone] | + + + + + [place] [...] + | [facility] | [address] | [place] | [phone] | | [facility] | | [address] | | | - LABORATORY | | [...]
--- OUTSIDE RECORDS SUMMARY | ~2019-07-09 | XMS | Encounter Summary ---
Demographics + + + | Address | [address] | | | [place] [address] | + + + | Home Phone [...] | Author | [facility] | | | and Eduardoana | + + + | Organization | [facility] | | | and Eduardoana | + + + | Address | Unknown | + + + | Phone | Unavailable | + + + Support + + + + + | Name | Relationship | Address | Phone | + + + + + | Poncho Oquendo | ECON | [address] | | | | | [facility] [place] | | | | | [address] | | + + + + + | Marta Upton | ECON | [place] | | | | | [address] | | + + + + + Care Team Providers + +------+ + | Care Office Support Specialist Name | Role | Phone [...] + + | 02/12/ | Telephone | [facility] | Pedro Green, | Missing Paperwork | | 2019 | | UROLOGY [address] | DO [address] | (notes on MyChart); | | | | [address] | [place] [address] | Other (Return pt | | | | [place], [place] | [phone] | call ) | | | | [address] | | | | | | [phone] | | | +--------+ + + + [...] | | | | | [place] [address] | | | | | | [phone] | | | | | | | | +--------+---------+ + + + documented as of this encounter Visit Diagnoses Not on filedocumented in this encounter"
--- OUTSIDE RECORDS SUMMARY | ~2019-07-09 | XMS | Encounter Summary ---
Demographics + + + | Address | [address] | | | [place] [address] | + + + | Home Phone [...] + | Author | [facility] | | | and Eduardoana | + + + | Organization | [facility] | | | and Eduardoana | + + + | Address | Unknown | + + + | Phone | Unavailable | + + + Support + + + + + | Name | Relationship | Address | Phone | + + + + + | Poncho Oquendo | ECON | [address] | | | | | [facility], [place] | | | | | [address] | | + + + + + | Marta Upton | ECON | [place], [place] | | | | | [address] | | + + + + + Care Team Providers + +------+ + | Care Admin Dir Name | Role | Phone | + [...] | PET CT Skull | [place], | [address] | | | | | [place] | [place] [address] | Phone: | | | | | Thigh | | [phone] | | | | | | | Fax: | | | | | | | [phone] | +--------+--------+ + + + + Reason [...] | | Procedures | [address] | [place], [place] | | | | | PET CT Skull | [place], | [address] | | | | | [place] | [place] [address] | Phone: | | | | | Thigh | | [phone] | | | | | | | Fax: | | | | | | | [phone] | +--------+--------+ + + + + Encounter Details +--------+ + + + + | Date | Type | Department | Care Team | Description | +--------+ + + + + | 02/15/ | Hospital | [facility] | Reinaldo, | 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 | Epifanio Soler MD [address] | passages ([facility]) | | | | MEDICINE [address] | [address] | | | | | [address] | [place] [address] | | | | | [place], [place] | [phone] | | | | | [address] | | | | | | [phone] | | | +--------+ + + + [...] [address] | | | | | | [place] [address] | | | | | | [phone] | | | | | | | [...] | | | Signed by: Maycol Urias, TellMipender Sign Date/Time: 02/15/2019 | | | 1:37 [...] Testing | 65 - 99 mg/dL | [facility] | | | POC | performed at [facility] | | LABORATORY | | | | [facility];[place], [place] | | | | | | [address] | | | | + + + + + + + + | Specimen | + + | | + + + + + + + | Performing | Address | City/State/Zipcode | Phone Number | | Organization | | | | + + + + + | [facility] | [address] | [place] [address] | [phone] | + + + + + documented [...] millicur | | | | Intravenous, ONCE, [facility] 02/15/19 at | | PM PST | ies | | | | 1315, For 1 dose | | | | | | + +--------+ + +------+------+ +---+---+ | | | +---+---+ documented in this encounter"
--- OUTSIDE RECORDS SUMMARY | ~2019-07-09 | XMS | Encounter Summary ---
Demographics + + + | Address | [address] | | | [place] [address] | + + + | Home Phone [...] | Author | [facility] | | | and Eduardoana | + + + | Organization | [facility] | | | and Eduardoana | + + + | Address | Unknown | + + + | Phone | Unavailable | + + + Support + + + + + | Name | Relationship | Address | Phone | + + + + + | Poncho Oquendo | ECON | [address] | | | | | [facility], [place] | | | | | [address] | | + + + + + | Marta Upton | ECON | [place] | | | | | [address] | | + + + + + Care Team Providers + +------+ + | Care Finish Specialist Name | Role | Phone | [...] + + | 10/18/ | Telephone | [facility] | Pedro Green, | Other (Canceling | | 2019 | | UROLOGY [address] | DO [address] | Appointment) | | | | [address] | [place] [address] | | | | | [place], [place] | [phone] | | | | | [address] | | | | | | [phone] | | | +--------+ + + + [...] [address] | | | | | | [place] [address] | | | | | | [phone] | | | | | | | | +--------+---------+ + + + documented as of this encounter Visit Diagnoses Not on filedocumented in this encounter"
--- OUTSIDE RECORDS SUMMARY | ~2019-07-09 | XMS | Encounter Summary ---
Demographics + + + | Address | [address] | | | [place] [address] | + + + | Home Phone [...] MD | | | | | [facility] Shay | Genevieve Acosta, | | | | | Hospital Admitting | | | | | | Desk Located on the | | | | | | 9th floor | | | | | | [place], [place] | | | | | | [address] | | | +--------+ + + + [...] - | | Genevieve Acosta, | Genevieve cAosta, | | Periph | | MD | [...] Maribel; 16FR | Liz Hair RN | Heathre Agosto RN | | Urinar | | [...]
--- OUTSIDE RECORDS SUMMARY | ~2019-07-09 | XMS | Encounter Summary ---
Demographics + + + | Address | [address] | | | [place] [address] | + + + | Home Phone [...] Providers + +------+ + | Care Iron Cutter Name | Role | Phone | [...] | 2014 | Encounter | [facility] | [address] | | | | | [address] | [address] | | | | | [address] | [place], [place] | | | | | Alexis, [facility] floor | [address] | | | | | [place], [place] | [phone] | | | | | [address] | | | | | | [phone] | | | +--------+ + + + [...]
--- OUTSIDE RECORDS SUMMARY | ~2019-07-09 | XMS | Encounter Summary ---
Demographics + + + | Address | [address] | | | [place] [address] | + + + | Home Phone [...] + | Author | [facility] | | | and Eduardoana | + + + | Organization | [facility] | | | and Eduardoana | + + + | Address | Unknown | + + + | Phone | Unavailable | + + + Support + + + + + | Name | Relationship | Address | Phone | + + + + + | Poncho Oquendo | ECON | [address] | | | | | [facility] [place] | | | | | [address] | | + + + + + | Marta Upton | ECON | [place] | | | | | [address] | | + + + + + Care Team Providers + +------+ + | Care Director Emergency Services Name | Role | Phone | [...] + | 04/19/ | Telephone | [facility] | Pedro Green, | Other (Labs for | | 2019 | | UROLOGY [address] | DO [address] | Procedure) | | | | [address] | [place] [address] | | | | | [place], [place] | [phone] | | | | | [address] | | | | | | [phone] | | | +--------+ + + + [...] | | | | | [place] [address] | | | | | | [phone] | | | | | | | | +--------+---------+ + + + documented as of this encounter Visit Diagnoses Not on filedocumented in this encounter"
--- OUTSIDE RECORDS SUMMARY | ~2019-07-09 | XMS | Encounter Summary ---
Demographics + + + | Address | [address] | | | [place] [address] | + + + | Home Phone [...] Team Providers + +------+ + | Care Fagot Heater Helper Name | Role | Phone | [...] Visit | Medicine Clinic at | A, [employer] [address] | (Primary Dx) | | | | [facility] 4th Floor [address] | | | | | [address] | [place], [place] | | | | | Mailcode: CH4S | [address] | | | | | [facility] | | | | | | and Healing, | | | | | | Building 1,4th Floor | | | | | | [place], [place] | | | | | | [address] | | | | | | [phone] | | | +--------+---------+ + + + [...]
--- OUTSIDE RECORDS SUMMARY | ~2019-07-09 | XMS | Encounter Summary ---
Demographics + + + | Address | [address] | | | [place] [address] | + + + | Home Phone [...] | Author | [facility] | | | and Eduardoana | + + + | Organization | [facility] | | | and Eduardoana | + + + | Address | Unknown | + + + | Phone | Unavailable | + + + Support + + + + + | Name | Relationship | Address | Phone | + + + + + | Poncho Oquendo | ECON | [address] | | | | | [place] | | | | | [address] | | + + + + + | Marta Upton | ECON | [place] | | | | | [address] | | + + + + + Care Team Providers + +------+ + | Care Power Tong Operator Name | Role | Phone | [...] | ONCOLOGY CLINIC [address] | [facility] | | | | | [facility] | [place] [address] | | | | | [place] [address] | [phone] | | | | | [phone] | | | +--------+ + + + [...] | [facility] [address] | | | | | | [phone] | | | | | | | | +--------+---------+ + + + documented as of this encounter Visit Diagnoses Not on filedocumented in this encounter"
--- OUTSIDE RECORDS SUMMARY | ~2019-07-09 | XMS | Encounter Summary ---
Demographics + + + | Address | [address] | | | [place] [address] | + + + | Home Phone [...] Author | [facility] | | | and Eduardoana | + + + | Organization | [facility] | | | and Eduardoana | + + + | Address | Unknown | + + + | Phone | Unavailable | + + + Support + + + + + | Name | Relationship | Address | Phone | + + + + + | Poncho Oquendo | ECON | [address] | | | | | [facility] [place] | | | | | [address] | | + + + + + | Marta Upton | ECON | [place], [place] | | | | | [address] | | + + + + + Care Team Providers + +------+ + | Care Wheat Combine Driver Name | Role | Phone | [...] site in | | | | [address] | [place] [address] | gastrointestinal | | | | [place] [address] | [phone] | tract (Primary Dx) | | | | [phone] | | | +--------+ + + + [...] | | | | | [place] [address] | | | | | | [phone] | | | | | | | [...] + + | Performing | Address | [facility] [[email or web address] | Phone Number | | Organization | | | | + + + + + | [facility] | [address] | [place] | [phone] | | [facility] | | [address] | | | - LABORATORY | | | | + + + + + | [facility] | [address] | [place] | | | [facility] | | [address], [place] | | | - LABORATORY | [...] | | | | | | [place] [address] | | | | + + + [...] | [address] | [place] [address] | [phone] | + + + + + Lactate [...] + | [facility] | [address] | [place] | [phone] | | [facility] | | [address] | | | - LABORATORY | | | | + + + + + | [facility] | [address] | [place] | | | [facility] | | [address], [place] | | | - LABORATORY | [...] | | | FILTRATION | mL/min/1.73m2 | [facility] | | | ST LU[facility]AN | RATE,ESTIMATED | | MEDICAL | | | | mL/min/1.90p8Rohn than | | CENTER - | | [...] [facility] | | | | | | [facility] | | | | | | MEDICAL [...] + | [facility] | [address] | [place] | [phone] | | [facility] | | [address] | | | - LABORATORY | | | | + + + + + | [facility] | [address] | [place] | | | [facility] | | [id number] | | | - [...] + | [facility] | [address] | [place], [place] | [phone] | | [facility] | | [address] | | | - LABORATORY | | | | + + + + + | [facility] | [address] | [place], [place] | | | [facility] | | [address] | | | - LABORATORY | | | | + + + + + documented in this encounter Visit Diagnoses + + | Diagnosis | + + | Personal history of malignant neoplasm of other site in gastrointestinal tract - | | Primary | + + documented in this encounter"
--- OUTSIDE RECORDS SUMMARY | ~2019-07-09 | XMS | Encounter Summary ---
Demographics + + + | Address | [address] | | | [place] [address] | + + + | Home Phone [...] Team Providers + +------+ + | Care Sodder Name | Role | Phone | + +------+ + | Prudencio Isaac MD | PCP | | + +------+ + Encounter Details +--------+ + + + + | Date | Type | Department | Care Team | Description | +--------+ + + + + | 04/24/ | Telephone | [facility] | Tai Stanton, | | | 2012 | | [place] [facility] [address] | [address] [facility] | | | | | [address] | [address] | | | | | Mailcode: Center | [place], [place] | | | | | [facility] and | [address] | | | | | Healing, Building [address] | [phone] | | | | | [place], [place] | | | | | | [address] | | | | | | [phone] | | | +--------+ + + + [...]
--- OUTSIDE RECORDS SUMMARY | ~2019-07-09 | XMS | Encounter Summary ---
Demographics + + + | Address | [address] | | | [place] [address] | + + + | Home Phone [...] | Author | [facility] | | | and Eduardoana | + + + | Organization | [facility] | | | and Eduardoana | + + + | Address | Unknown | + + + | Phone | Unavailable | + + + Support + + + + + | Name | Relationship | Address | Phone | + + + + + | Poncho Oquendo | ECON | [address] | | | | | [facility] [place] | | | | | [address] | | + + + + + | Marta Upton | ECON | [place], [place] | | | | | [address] | | + + + + + Care Team Providers + +------+ + | Care Program Technician Name | Role | Phone | + +------+ + PCP | Unavailable | + +------+ + Encounter Details +--------+ + + + + | Date | Type | Department | Care Team | Description | +--------+ + + + + | 03/12/ | Hospital | [facility] | Hakan Cherry | | | 2011 | Encounter | MED CTR XRAY [address] | [address] | | | | | [place] | [place], [place] | | | | | [place] [address] | [address] | | | | | [phone] | | | +--------+ + + + [...] Visit | | DO [address] [facility] | | | | | | [place] [address] | | | | | | [phone] | | | | | | | [...] Performed At | + + + | [facility] Diagnostic Imaging Department | [place] | | [address] [facility] [place] | [facility] | | RIGHT HIP, 03/12/2011 | [...] Transcribed Date/Time: 03/12/2011 | | | 11:29 Protection Officer: <Electronically Signed by Alejandro Keller | | | MD Mo> 03/12/11 1459 | | + + + + + | Procedure Note | + + | Edmundo, [place] Conversion - 03/23/2013 4:38 PM [facility] | | Diagnostic Imaging Department [address] [facility] [place] | | RIGHT HIP, 03/12/2011 CLINICAL HISTORY: [...] by Alejandro Hassan MD> 03/12/11 | | 5959 | |FINDINGS: AP view of the pelvis [...] 11:24 | |Transcribed Date/Time: 03/12/2011 11:29 | |Protection Officer: | |<Electronically Signed by Alejandro Hassan MD> 03/12/11 3133 | + + + +---------+ + + [...] Performed At | + + + | [facility] Diagnostic Imaging Department | [facility] | | [address] [facility] | [facility] | | LATERAL VIEWS, LUMBAR SPINE [...] | | | Transcribed Date/Time: 03/12/2011 11:29 Protection Officer: | | | <Electronically Signed by Alejandro Hassan MD> 03/12/11 1459 | | + + + + + | Procedure Note | + + | [place] Conversion - 03/23/2013 4:38 PM [facility] | | Diagnostic Imaging Department [address] [facility] [place] | | LATERAL VIEWS, LUMBAR SPINE CLINICAL [...] 11:23 | |Transcribed Date/Time: 03/12/2011 11:29 | |Protection Officer: | |<Electronically Signed by Alejandro Hassan MD> [...]
--- OUTSIDE RECORDS SUMMARY | ~2019-07-09 | XMS | Encounter Summary ---
Demographics + + + | Address | [address] | | | [place] [address] | + + + | Home Phone [...] Author | [facility] | | | and Eduardoana | + + + | Organization | [facility] | | | and Eduardoana | + + + | Address | Unknown | + + + | Phone | Unavailable | + + + Support + + + + + | Name | Relationship | Address | Phone | + + + + + | Poncho Oquendo | ECON | [address] | | | | | [place] | | | | | [address] | | + + + + + | Marta Upton | ECON | [place] | | | | | [address] | | + + + + + Care Team Providers + +------+ + | Care Concrete Engineer Name | Role | Phone | [...] | | ONCOLOGY CLINIC [address] | [facility] | | | | | [address] [facility] | [place] [address] | | | | | [place] [address] | [phone] | | | | | [phone] | | | +--------+ + + + [...] | | | | | [place] [address] | | | | | | [phone] | | | | | | | | +--------+---------+ + + + documented as of this encounter Visit Diagnoses Not on filedocumented in this encounter"
--- OUTSIDE RECORDS SUMMARY | ~2019-07-09 | XMS | Encounter Summary ---
Demographics + + + | Address | [address] | | | [place] [address] | + + + | Home Phone [...] Author | [facility] | | | and Eduardoana | + + + | Organization | [facility] | | | and Eduardoana | + + + | Address | Unknown | + + + | Phone | Unavailable | + + + Support + + + + + | Name | Relationship | Address | Phone | + + + + + | Poncho Oquendo | ECON | [address] | | | | | [place] | | | | | [address] | | + + + + + | Marta Upton | ECON | [place] | | | | | [address] | | + + + + + [...] | Procedures | [address] | [place] [address] | | | | | DE OFFICE | OBED, | Phone: | | | | | OUTPATIENT | [place] [address] | [phone] | | | | | VISIT 25 | | Fax: | | | | | MINUTES | | [phone] | +--------+--------+ + + + + Encounter Details +--------+ + + + + | Date | Type | Department | Care Team | Description | +--------+ + + + + | 02/02/ | Hospital | [facility] | Ángela Glass | Gallbladder cancer, | | 2017 | Encounter | MED CTR MEDICAL | J, PharmD [address] | carcinoma (HCC) | | | | ONCOLOGY CLINIC [address] | [address] [place] | (Primary Dx) | | | | [address] [place] | [place] [address] | | | | | [place] [address] | [phone] | | | | | [phone] | | | +--------+ + + + [...] original. Clinical Oncology Pharmacy Services Progress Note [facility] Pt. Name/Age/: Arua Upton 56 y.o. 1960 CSN: [id number] Date of service: 02/02/2017 Provider: Ángela Glass PharmD Identifying Statement: Aura Upton is a 56 y.o. female from [address] [place] [address], The encounter diagnosis was Gallbladder cancer, carcinoma [...] 2. Follow up with Dr Najera at [facility] in [place], [place]. Subjective: The patient chart and medications were [...] [address] | | | | | | [place] [address] | | | | | | [phone] | | | | | | | | +--------+---------+ + + + documented as of this encounter Visit Diagnoses + + | Diagnosis | + + | Gallbladder cancer, 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
--- OUTSIDE RECORDS SUMMARY | ~2019-07-09 | XMS | Encounter Summary ---
Demographics + + + | Address | [address] | | | [place] [address] | + + + | Home Phone [...] Author | [facility] | | | and Eduardoana | + + + | Organization | [facility] | | | and Eduardoana | + + + | Address | Unknown | + + + | Phone | Unavailable | + + + Support + + + + + | Name | Relationship | Address | Phone | + + + + + | Poncho Oquendo | ECON | [address] | | | | | [place] | | | | | [address] | | + + + + + | Marta Upton | ECON | [place] | | | | | [address] | | + + + + + Care Team Providers + +------+ + | Care Maintenance Analyst Name | Role | Phone | [...] 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, | [address]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 | MD [address] | [place], | | | | | (HCC) | [address] | [place] [address] | | | | | Procedures | [place], | Phone: | | | | | [place] | [place] [address] | [phone] | | | | | ONDAN[place]RON | Phone: | Fax: | | | | | HCL | [phone] | [phone] | | | | | INJECTION, 1 | Fax: | | | | | | [place] | [phone] | | | | | | DEXAMETHASON [...] | | | | | | [place] CISPLATIN | | | | | | [...] + + | 11/22/ | Hospital | [facility] | Vladimir Robles, | Gallbladder cancer, | | 2015 | Encounter | MED CTR CHEMO | MD [address] | carcinoma (HCC) | | | | INFUSION [address] [place], | (Primary Dx) | | | | [place] | [place] [address] | | | | | [place] [address] | [phone] | | | | | [phone] | | | +--------+ + + + [...] [address] | | | | | | [place] [address] | | | | | | [phone] | | | | | | | [...] | | | | | | [place] [address] | | | | + + + [...] [address] | [place] [address] | [phone] | + + + + + [place] [...] + | [address] | [address] | [place] | [phone] | | [facility] | | [address] | | | - LABORATORY | | [...] [address] | [place] | [phone] | | [facility] | | [address] | | | - LABORATORY | | [...] mL/min/1.73m2 | [facility] | | | [place] | RATE,ESTIMATED | | MEDICAL | | | | mL/min/1.86d2Gkmi than | | CENTER - | | [...] | 8.7 | 8.3 - 10.5 | [facility] | | | | | mg/dL | [...] + | [address] | [address] | [place] | [phone] | | [facility] | | [address] | | | - LABORATORY | | [...] [address] | [place] | [phone] | | [facility] | | [address] | | | - LABORATORY | | [...]
--- OUTSIDE RECORDS SUMMARY | ~2019-07-09 | XMS | Encounter Summary ---
Demographics + + + | Address | [address] | | | [place] [address] | + + + | Home Phone [...] | [facility] | | | and Eduardoana | + + + | Organization | [facility] | | | and Eduardoana | + + + | Address | Unknown | + + + | Phone | Unavailable | + + + Support + + + + + | Name | Relationship | Address | Phone | + + + + + | Poncho Oquendo | ECON | [address] | | | | | [place] | | | | | [address] | | + + + + + | Marta Upton | ECON | [place] | | | | | [address] | | + + + + + Care Team Providers + +------+ + | Care Seafood Fisherman Name | Role | Phone | + [...] in | [address] | [address] | | | | | breast | [address] | [place], | | | | | Procedures | STREET | [place] | | | | | LUPE BREAST | [place], | [address] | | | | | BIOPSY RIGHT | [place] | Phone: | | | | | | [address] | [phone] | | | | | | Phone: | Fax: | | | | | | [phone] | [phone] | | | | | | Fax: | | | | | | | [phone] | | +--------+--------+ + + + + Encounter Details +--------+ + + + + | Date | Type | Department | Care Team | Description | +--------+ + + + + | 03/05/ | Hospital | [facility] | Reinaldo, | Mass of breast, | | 2017 | Encounter | MED CTR MAMMOGRAPHY | Epifanio Soler MD [address] | right | | | | [address] | [address] [place] | | | | | [place], [place] | [place] [address] | | | | | [address] | [phone] | | | | | [phone] | | | | | | | [...] | | | | | [place] [address] | | | | | | [phone] | | | | | | | [...] At | + + + | EXAM: [facility] TOMOSYN DIAGNOSTIC RIGHT dated 03/05/2016 12:50 [...] In - 03/05/2016 2:52 PM PST EXAM: [facility] TOMOSYN DIAGNOSTIC RIGHT | | dated [...]
--- OUTSIDE RECORDS SUMMARY | ~2019-07-09 | XMS | Clinical Summary ---
Demographics + + + | Address | [address] | | | [place] [address] | + + + | Home Phone [...] Author | [facility] | | | and Eduardoana | + + + | Organization | [facility] | | | and Eduardoana | + + + | Address | Unknown | + + + | Phone | Unavailable | + + + Support + + + + + | Name | Relationship | Address | Phone | + + + + + | Poncho Oquendo | ECON | [address] | | | | | [facility] [place], [place] | | | | | [address] | | + + + + + | Marta Upton | ECON | [place] | | | | | [address] | | + + + + + Care Team Providers + +------+ + | Care Professional Fighter Name | Role | Phone | + [...] nose as needed for | | | 20 | | e | | | suspected [...] | | + + + +---------+------+------+-------+ | filgrastim | Inject 0.5 mLs under | 2 | 0 | 04/ | 04 | Expir | | (NEUPOGEN) 300 | the skin Daily for | Syringe | | / | 09/02 | ed | | mcg/0.5 mL injection | 2 days. Inject for | | | 20 | 20 | | | | two consecutive | | | | | | | | days, 06/09/2019 and | | | | | | | | 06/10/2019 | | | | | | + [...] + + + | Overview: Problem List Service Car Driver Utility | + + + + + [...] | | written pain management agreement/narcotic contract. [[place] | | Health and Services Provider Handbook of Operational Guidelines | | (2015), fourth edition, page 45]. | + + + + + | Gallbladder cancer, carcinoma | 06/26/2014 | + + + + + | Overview: ACTIVE DIAGNOSES: Recurrent cholangiocarcinoma.1. | | Presentation with biliary colic in 2012. Status post | | cholecystectomy and liver biopsy by Dr. Brandon Garcai on | | 03/29/2012. Pathological specimen [id number] was analyzed by | | Liu Bowers M.D. of [facility] and was notable | | for a poorly-differentiated adenocarcinoma of the gallbladder. | | Liver biopsy was performed at the same time of the procedure and | | demonstrated portal inflammation.2. On 04/26/2012, she | | successfully underwent a R0 resection by Dr. Tai Stanton, of | | the [facility]. Pathological specimen | | [id number] was notable for the absence of any residual | | carcinoma within the gallbladder bed; however, 2/8 regional lymph | | nodes were positive for regionally metastatic disease.3. | | Consultation with Dr. Elva Grey of the [facility] | | [facility] [place] on 05/17/2012, which returned the | | [...] [place] of the | | [facility]. 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 However, 122 of the remaining genes | | analyzed in the assay were all wild type.7. Repeat consultation | | with Dr. Elva Grey of the [facility] | | on 06/26/2014 returned the recommendation for additional | | chemotherapy with cisplatin at 75 mg/m2 on day 1 with gemcitabine | | at 1250 mg/m2 on day-1 and day-8 of the every 21-day cycle for | | 6-8 cycles. This was followed by a second opinion by Dr. Quiroz | | Jeovany of the [facility] who recommended | | chemotherapy with cisplatin [...] recommendations of Dr. Richie Thayer of the [facility] | | [place] with gemcitabine at 1000 mg/m2 on day-1 and day-8 with | | cisplatin 25 mg/m2 on day-1 and day-8 of the every 21-day cycle, | | beginning on 07/26/2014. Chemotherapy was complicated by grade 3 | | neutropenia without fever a grade 3 thrombocytopenia without | | bleeding.10. Repeat CT scan of the abdomen and pelvis on | | 09/16/2014 at the [facility] in [facility] | | [place], demonstrated stable postoperative changes involving | | [...] the chest, abdomen, and pelvis at the [facility] in [place], [place], | | demonstrated stable postoperative changes [...] abdomen, and | | pelvis at the [facility] in [place], [place], on | | 06/23/2015 demonstrating postoperative changes in the right upper | | quadrant. No evidence of recurrence or any evidence of | | metastatic disease.15. Repeat CT scan of the chest, abdomen, and | | pelvis at the [facility] in [place], [place], on | | 09/24/2015 demonstrating right upper quadrant post-surgical | | changes. No evidence of recurrent neoplasm. Interval development | | of a small hernia containing bowel and fat 3 cm above the | | umbilicus.16. Repeat CT scan of the abdomen and pelvis on | | 12/22/2015 at the [facility] in [place], [place], | | demonstrating a 1.5 cm soft tissue nodule just inferior to the | | liver within the mesentery on the right. In addition, there were | | tiny nodules in the bilateral upper quadrants.17. PET CT scan at | | [facility] in [place], [place], on 12/31/2015 | | demonstrating benign findings. The nodularity along the omental | | fat along the left colon and liver tail showed no abnormal | | uptake.18. Presentation to the [facility] Emergency | | Room on 03/15/2016 [...] | Repeat CT scan of C/A/P at [facility] on July 01, 2016 | | [...] | | contrast, October 06, 2016, at [facility] in [facility] | | [place], demonstrated no evidence of recurrence or metastatic | | disease. Aura continued on observation without treatment.23. | | Repeat CT scan of the chest/abdomen/pelvis at [facility] demonstrated progression of disease and | [...] will see Dr. Richie Thayer at the [facility] | [facility] [place]. 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 Followed by | | Ellyn at [facility] in [place]. | | -04/26/2012: R0 Resection. -05/31/2012-09/03/2012 | [...] + + | 07/04/ | Hospital | Infusion Therapy | Reinaldo, | Gallbladder cancer, | | 2019 | Encounter | | Epifanio Soler MD | carcinoma (HCC) | | | | | | (Primary Dx) | +--------+ + + + + | 07/03/ | Orders Only | Oncology | Reinaldo | | 2019 | | | Epifanio Soler MD | | +--------+ + + + + | 07/03/ | Telephone | Oncology | Reinaldo, | Coordination Of Care | | 2019 | | | Epifanio Soler MD | | +--------+ + + + + | 06/08/ | Orders Only | Oncology | Mathieu Langford | | 2019 | | | MD Epifanio | | +--------+ + + + + | 05/20/ | Telephone | Oncology | Reinaldo, | Care Coordination | | 2019 | | | Epifanio Soler MD | | +--------+ + + + + | 04/29/ | Telephone | Urology | Pedro Green, | Follow-up | | 2019 | | | DO | | +--------+ + + + + | 04/26/ | Anesthesia | | [place] | | 2019 | Event | | CAM Will | | +--------+ + + + + | 04/26/ | Surgery | | Pedro Green, | CYSTOSCOPY URETERAL | | 2019 | | | DO | STENT | | | | | | REMOVAL/REPLACEMENT | +--------+ + + + + | 04/26/ | Hospital | | Pedro Green, | | | 2019 | Encounter | | DO | | +--------+ + + + + | 04/26/ | Hospital | | Pedro Green, | | | 2019 | Encounter | | DO | | +--------+ + + + + | 04/26/ | Hospital | | | Gallbladder cancer, | | 2019 | Encounter | | | carcinoma (HCC); | | | | | | Obstruction of left | | | | | | ureter | +--------+ + + + + | 04/22/ | Preadmit | Pre-Admission | | | | 2020 | Visit | Testing | | | +--------+ + + + + | 04/19/ | Telephone | Urologjorge | Pedro Green, | Other (Labs for | | 2020 | | | DO | Procedure) | +--------+ + + + + from [...] | + + + + | INFLUENZA, [id number], | 04/14/2009 | | | UNSPECIFIED | [...] | | | | | [place] [address] | | | | | | [phone] | | | | | | | [...] 7fr 24cm | Stent | | ROBERT JONES | | 06/28/ | [id number] | | - SnaImplanted: Qty: 1 on | | | INCORPORATE | | 2020 | /NA | | 11/29/2018 by Pedro Green | | | D | | | [id number] | | DO Alessandra at [facility] | | | | | | 02 | [facility] | | | | | | | + +-------+--------+ +--------+--------+--------+ | [employer] Ureteral Stent | Stent | Left: | ROBERT JONES | | 09/06/ | [id number] | | And PositionerImplanted: Qty: | | Ureter | INCORPORATE | | 2021 | 4-R, | | 1 on 04/27/2019 by Peter, | | | D | | | [id number] | | Pedro Aparicio DO at [facility] | | | | | | /NA | | | | | | | | /[id number] | | | | | | | | 29 | + +-------+--------+ +--------+--------+--------+ | Stent Uro Unvrs Frm 7fr 24cm | | Left: | ROBERT JONES | | 11/12/ | [id number] | | - SnaImplanted: Qty: 1 on | | Ureter | INCORPORATE | | 2019 | /NA | | 07/05/2018 by Pedro Green | | | D | | | /[id number] | | DO Alessandra | | | | | | 79 | + +-------+--------+ +--------+--------+--------+ Procedures + +--------+ + + + | Procedure Name | Priori | Date/Time | Associated Diagnosis | Comments | | | ty | | | | + +--------+ + + + | FL C KARI | Routin | 04/27/2019 | | Results [...] +--------+ +--------+-------+---------+--------+ | BCBS | BCBS | [id number] | 02/14/19 | | | PPO | | | FEDERA | | 16-Pre | | | | | | L FEP | | sent | | | | + +--------+ +--------+-------+---------+--------+ | BCBS | BCBS | [id number] | 02/14/19 | | | PPO | | | FEDERA | | 16-Pre | | | | | | L FEP | | sent | | | | + +--------+ +--------+-------+---------+--------+ | [facility] | IHS | [id number] | 02/14/19 | | | Indemn | | SERVICE | YELLOW | | 13-Pre | | | ity | | | HAWK | | sent | | | | + +--------+ +--------+-------+---------+--------+ | [facility] | IHS | [id number] | 02/14/19 | | | Indemn | [...] Person | Self | [birth year] | [address] | | | al/Jaspreet | | 1961 | [phone] | [place] [address] | | | jose alejandro | | | 5 (Home) | | | | | | | [phone] | | | | | | | 6 (Work) | | + +--------+ +--------+ + + | Cody Uptonureen | Person | Self | [birth year] | | [address] | | | al/Jaspreet | | 1961 | [phone] | [place] [address] | | | jose alejandro | | | 5 (Home) | | + +--------+ +--------+ + + Advance Directives + + + + + | Type | Date Recorded | Patient | Explanation | | | | Emt Dispatcher | | + + + + + | Power of | | | | | Agency Service Coordinator | | | | + + + [...]
--- OUTSIDE RECORDS SUMMARY | ~2019-07-09 | XMS | Encounter Summary ---
Demographics + + + | Address | [address] | | | [place] [address] | + + + | Home Phone [...] | Author | [facility] | | | and Eduardoana | + + + | Organization | [facility] | | | and Eduardoana | + + + | Address | Unknown | + + + | Phone | Unavailable | + + + Support + + + + + | Name | Relationship | Address | Phone | + + + + + | Poncho Oquendo | ECON | [address] | | | | | [place] | | | | | [address] | | + + + + + | Marta Upton | ECON | [place] | | | | | [address] | | + + + + + Care Team Providers + +------+ + | Care Senior Dentist Name | Role | Phone | + +------+ + | Valeriy Carmona DO | PCP | | + +------+ + Encounter Details +--------+ + + + + | Date | Type | Department | Care Team | Description | +--------+ + + + + | 09/16/ | Hospital | [facility] | [facility], | Gallbladder cancer, | | 2015 | Encounter | MED CTR MEDICAL | Epifanio Soler MD [address] | carcinoma (HCC) | | | | ONCOLOGY CLINIC [address] | [address] [place] | (Primary Dx); | | | | [address] | [place] [address] | Ovarian cyst; | | | | [place] [address] | [phone] | Personal history of | | | | [phone] | | malignant neoplasm | | | [...] | | | | | | [place] [address] | | | | | | [phone] | | | | | | | [...] [address] | [place] | [phone] | | [facility] | | [address] | | | - LABORATORY | | [...] W. | | | | | | [address], [place] | | | | | | [address] | | | | + + + + + + + + | Specimen | + + | Blood specimen | | (specimen) | + + + + + + + | Performing | Address | City/State/Zipcode | Phone Number | | Organization | | | | + + + + + | [facility] | [address] | [place] [address] | [phone] | + + + + + Comprehensive [...] | mL/min/1.73m2 | [facility] | | | [place] | RATE,ESTIMATED | | MEDICAL | | | | mL/min/1.93v9Zwfk than | | CENTER - | | [...] [address] | [place] | [phone] | | [facility] | | [address] | | | - LABORATORY | | [...] + | [facility] | [address] | [place] | [phone] | | [facility] | | [address] | | | - LABORATORY | | [...] | | | | | | [facility] | | | | | [...] + | [address] | [address] | [place], [place] | [phone] | | [facility] | | [address] | | | - LABORATORY | | [...] | | | | | | [place] [address] | | | | + + + [...] [address] | [place] [address] | [phone] | + + + + + [place] [...] [address] | [place] | [phone] | | [facility] | | [address] | | | - LABORATORY | | [...]
--- OUTSIDE RECORDS SUMMARY | ~2019-07-09 | XMS | Encounter Summary ---
Demographics + + + | Address | [address] | | | [place] [address] | + + + | Home Phone [...] | Author | [facility] | | | and Eduardoana | + + + | Organization | [facility] | | | and Eduardoana | + + + | Address | Unknown | + + + | Phone | Unavailable | + + + Support + + + + + | Name | Relationship | Address | Phone | + + + + + | Poncho Oquendo | ECON | [address] | | | | | [place] | | | | | [address] | | + + + + + | Marta Upton | ECON | [place] | | | | | [address] | | + + + + + Care Team Providers + +------+ + | Care Claim Examiner Name | Role | Phone | + +------+ + | Valeriy Carmona DO | PCP | | + +------+ + Encounter Details +--------+ + + + + | Date | Type | Department | Care Team | Description | +--------+ + + + + | 09/16/ | Hospital | [facility] | [facility], | Gallbladder cancer, | | 2015 | Encounter | [facility] | Epifanio Soler MD [address] | carcinoma (HCC) | | | | [facility] [address] [place] | (Primary Dx); | | | | [address] | [place] [address] | Ovarian cyst; | | | | [place] [address] | [phone] | Personal history of | | | | [phone] | | malignant neoplasm | | | [...] | 2019 | Visit | | DO Vaishlai [address] | | | | | | [place] [address] | | | | | | [phone] | | | | | | | [...] + | Performing | Address | City/State/[facility] | Phone Number | | Organization | | | | + + + + + | [facility] | [address] | [place] | [phone] | | [facility] | | [address] | | | - LABORATORY | | [...] [place] | | | | | | [address] | | | | + + + + + + + + | Specimen | + + | Blood specimen | | (specimen) | + + + + + + + | Performing | Address | City/State/Zipcode | Phone Number | | Organization | | | | + + + + + | [facility] | [address] | [place] [address] | [phone] | + + + + + Comprehensive [...] | mL/min/1.73m2 | Y[facility] | | | EQUATORIAL GUINEAN | RATE,ESTIMATED | | MEDICAL | | | | mL/min/1.18b9Oqfu than | | CENTER - | | [...] [address] | [place] | [phone] | | [facility] | | [address] | | | - LABORATORY | | [...] + | [facility] | [address] | [place] | [phone] | | [facility] | | [address] | | | - LABORATORY | | [...] | | | | | | [facility] | | | | | [...] + | [facility] [facility] | [address] | [place], [place] | [phone] | | [facility] | | [address] | | | - LABORATORY | | [...] | | | | | | [place] [address] | | | | + + + [...] [address] | [place] [address] | [phone] | + + + + + [place] [...] [address] | [place] | [phone] | | [facility] | | [address] | | | - LABORATORY | | [...]
--- OUTSIDE RECORDS SUMMARY | ~2019-07-09 | XMS | Encounter Summary ---
Demographics + + + | Address | [address] | | | [place] [address] | + + + | Home Phone [...] | [facility] | | | and Eduardoana | + + + | Organization | [facility] | | | and Eduardoana | + + + | Address | Unknown | + + + | Phone | Unavailable | + + + Support + + + + + | Name | Relationship | Address | Phone | + + + + + | Poncho Oquendo | ECON | [address] | | | | | [place] | | | | | [address] | | + + + + + | Marta Upton | ECON | [place] | | | | | [address] | | + + + + + Care Team Providers + +------+ + | Care Perpetual Inventory Clerk Name | Role | Phone | [...] W | | | | | | [place], | | | | | | [place] [address] | | | | | | [phone] | | | +--------+ + + + [...] [address] | | | | | | [place] [address] | | | | | | [phone] | | | | | | | | +--------+---------+ + + + documented as of this encounter Visit Diagnoses Not on filedocumented in this encounter"
--- OUTSIDE RECORDS SUMMARY | ~2019-07-09 | XMS | Encounter Summary ---
Demographics + + + | Address | [address] | | | [place] [address] | + + + | Home Phone [...] Providers + +------+ + | Care Agricultural Service Technician Name | Role | Phone [...] | 2015 | Encounter | [facility] | [address] | Movement What Is My | | | | Alex[address] | [facility] | Next Step? | | | | [address] | [place], [place] | | | | | Alexis, [facility] | [address] | | | | | [place], [place] | [phone] | | | | | [address] | | | | | | [phone] | | | +--------+ + + + [...]
--- OUTSIDE RECORDS SUMMARY | ~2019-07-09 | XMS | Encounter Summary ---
Demographics + + + | Address | [address] | | | [place] [address] | + + + | Home Phone [...] + | Poncho Oquendo | ECON | [address] | | | | | [facility] [place] | | | | | [address] | | + + + + + | Marta Upton | ECON | [place], [place] | | | | | [address] | | + + + + + Care Team Providers + +------+ + | Care Tube Worker Name | Role | Phone | + +------+ + PCP | Unavailable | + +------+ + Encounter Details +--------+ + + + + | Date | Type | Department | Care Team | Description | +--------+ + + + + | 10/12/ | Hospital | [facility] | | | | 2012 - | Encounter | [facility] | | | | | | CENTER [address] | | | | 10/14/ | | [place] | | | | 2012 | | [address] | | | | | | [phone] | | | +--------+ + + + [...] [place] | | | | | | [place] [address] | | | | | | [phone] | | | | | | | [...] + | [facility] | [address] | [place] | [phone] | | [facility] | | [address] | | | - LABORATORY | | | | + + + + + | [facility] | [address] | [place] | | | [facility] | | [id number] [place] [address] | | | - LABORATORY | | [...] | (formerly Mahad) Advia | | [facility] | | | | Centaur immunoassay [...] | | | | [address], [place], [place] | | | | | | [address] CLIA: | | | | | | [id number] | | | | + + + + + + + + | Specimen | + + | | + + + + + + + | Performing | Address | City/State/Zipcode | Phone Number | | Organization | | | | + + + + + | [facility] | [address] | [place] | [phone] | | [facility] | | [address] | | | - LABORATORY | | | | + + + + + | [facility] | [address] | [place], [place] | | | [facility] | | [id number] | | [...] + | [facility] | [address] | [place], [place] | [phone] | | [facility] | | [address] | | | - LABORATORY | | | | + + + + + | [facility] | [address] | [place] | | | [facility] | | [address], [facility] | | | - [...] + | [facility] | [address] | [place] | [phone] | | [facility] | | [address] | | | - LABORATORY | | | | + + + + + | [facility] | [address] | [place] | | | [facility] | | [id number] | | [...] | | DIFFERENTIA | | | [facility] | | | L ? | [...] + | [facility] | [address] | [place], [place] | [phone] | | [facility] | | [address] | | | - LABORATORY | | | | + + + + + | [facility] | [address] | [place], [place] | | | [facility] | | [address], [facility] | | | - [...] | (formerly Mahad) Advia | | [facility] | | | | Blink for iPhone and Androidaur immunoassay | | MEDICAL | | | [...] | | | | [address] [place], [place] | | | | | | [address] CLIA: | | | | | | [id number] | | | | + + + + + + + + | Specimen | + + | | + + + + + + + | Performing | Address | City/State/Zipcode | Phone Number | | Organization | | | | + + + + + | [facility] | [address] | [place], [place] | [phone] | | [facility] | | [address] | | | - LABORATORY | | | | + + + + + | [facility] | [address] | [place], [place] | | | [facility] | | [address], [facility] | | | - [...] + | [facility] | [address] | [place] | [phone] | | [facility] | | [address] | | | - LABORATORY | | | | + + + + + | [facility] | [address] | [place] | | | [facility] | | [id number] | | [...] + | [facility] | [address] | [place], [place] | [phone] | | [facility] | | [address] | | | - LABORATORY | | | | + + + + + | [facility] | [address] | [place], [place] | | | [facility] | | [address], [facility] | | | - [...] | | Lymphocytes | | | [facility] | | [...] + | [facility] | [address] | [place], [place] | [phone] | | [facility] | | [address] | | | - LABORATORY | | | | + + + + + | [facility] | [address] | [place], [place] | | | [facility] | | [address] [place] [address] | | | - LABORATORY | | [...] | (formerly Mahad) Advia | | [facility] | | | | Centaur immunoassay [...] Age[place] | | | | | | [address] CLIA: | | | | | | [id number] | | | | + + + + + + + + | Specimen | + + | | + + + + + + + | Performing | Address | City/State/Zipcode | Phone Number | | Organization | | | | + + + + + | [facility] | [address] | [place], [place] | [phone] | | [facility] | | [address] | | | - LABORATORY | | | | + + + + + | [facility] | [address] | [place] | | | [facility] | | [address] [place] [address] | | | - LABORATORY | | [...] + | [facility] | [address] | [place] | [phone] | | [facility] | | [address] | | | - LABORATORY | | | | + + + + + | [facility] | [address] | [place] | | | [facility] | | [address], [facility] | | | - [...] + | [facility] | [address] | [place], [place] | [phone] | | [facility] | | [address] | | | - LABORATORY | | | | + + + + + | [facility] | [address] | [place], [place] | | | [facility] | | [address], [facility] | | | - [...] + | [facility] | [address] | [place], [place] | [phone] | | [facility] | | [address] | | | - LABORATORY | | | | + + + + + | [facility] | [address] | [place], [place] | | | [facility] | | [address] [place] [address] | | | - LABORATORY | | [...] | (formerly Mahad) Advia | | [facility] | | | | Blink for iPhone and Androidaur immunoassay | | MEDICAL | | | [...] [place] | | | | | | [address] CLIA: | | | | | | [id number] | | | | + + + + + + + + | Specimen | + + | | + + + + + + + | Performing | Address | City/State/Zipcode | Phone Number | | Organization | | | | + + + + + | [facility] | [address] | [place], [place] | [phone] | | [facility] | | [address] | | | - LABORATORY | | | | + + + + + | [facility] | [address] | [place], [place] | | | [facility] | | [address], [facility] | | | - [...] [address] | [place] | [phone] | | [facility] | | [address] | | | - LABORATORY | | | | + + + + + | [facility] | [address] | [place], [place] | | | [facility] | | [address], [facility] | | | - [...] [address] | [place] | [phone] | | [facility] | | [address] | | | - LABORATORY | | | | + + + + + | [facility] [facility] | [address] | [place] | | | [facility] | | [address] [place] [address] | | | - LABORATORY | | | | + + + + + documented in this encounter Visit Diagnoses Not on filedocumented in this encounter"
--- OUTSIDE RECORDS SUMMARY | ~2019-07-09 | XMS | Encounter Summary ---
Demographics + + + | Address | [address] | | | [place] [address] | + + + | Home Phone [...] Team Providers + +------+ + | Care Strategic Development Manager Name | Role | Phone | [...] & | Diagnoses | Degeest, | [facility] | | | | Gynecology | Pelvic mass | MD Miguel | [address] | | | | | Procedures | [address] | Marg[address] | | | | | REQUEST TO | Dana Agosto | [place] | | | | | SURGERY | [address] | Alexis, 7th | | | | | INTERNATIONAL SOURCING MANAGER | [place], [place] | floor | | | | | [place] | [address] | [place], [place] | | | | | EXPLORATORY | Phone: | [address] | | | | | OF ABDOMEN | [phone] | Phone: | | | | | [place] RESEC | Fax: | [phone] | | | | | OVAR | [phone] | Fax: | | | | | MALIG+JAKE+PE | | [phone] | | | | | LV NODES [...] & | Diagnoses | Non-[facility] | [facility] | | | | Gynecology | Complex | Epic Dept | [address] | | | | | Cystic Mass, | | [address] | | | | | elevated | | [place] | | | | | [address] per | | Pavilion, 7th | | | | | appt notes | | floor | | | | | | | [place], [place] | | | | | | | [address] | | | | | | | Phone: | | | | | | | [phone] | | | | | | | Fax: | | | | | | | [phone] | +--------+--------+ + + + + Encounter Details +--------+---------+ + + + | Date | Type | Department | Care Team | Description | +--------+---------+ + + + | 05/28/ | Office | [facility] | Miguel Seymour, | Preoperative testing | | 2015 | Visit | [facility] | [address] | (Primary Dx); | | | | [address] | [address] | Pelvic mass | | | | [address] | [place], [place] | | | | | Alexis, 7th floor | [address] | | | | | [place], [place] | [phone] | | | | | [address] | | | | | | [phone] | | | +--------+---------+ + + + [...] might be diff erent from the original. [facility] ONCOLOGY RETURN VISIT 05/28/2014 Referring provider: Valeriy [...] [facility] | [address] | [place] [address] | | | SAM ALONSO | NEAL [...] + + + | [facility] | [address] | [place] [address] | | | SERVICES, SAM | NEAL [...] | | | LABORATORY | | | OMANI | | | SERVICES, | | | [...] | + + + + + | [facility] | [address] | [place] [address] | | | GAVIN, SAM | NEAL [...]
--- OUTSIDE RECORDS SUMMARY | ~2019-07-09 | XMS | Encounter Summary ---
Demographics + + + | Address | [address] | | | [place] [address] | + + + | Home Phone [...] | Author | [facility] | | | and Eduardoana | + + + | Organization | [facility] | | | and Eduardoana | + + + | Address | Unknown | + + + | Phone | Unavailable | + + + Support + + + + + | Name | Relationship | Address | Phone | + + + + + | Poncho Oquendo | ECON | [address] | | | | | [place] | | | | | [address] | | + + + + + | Marta Upton | ECON | [place] | | | | | [address] | | + + + + + Care Team Providers + +------+ + | Care Study Assistant Name | Role | Phone | [...] HOSPITAL | | | | | [facility] | [place] [address] | | | | | [place] [address] | [phone] | | | | | [phone] | | | +--------+ + + + [...] [facility] | | | | | | [facility] [place] [address] | | | | | | [phone] | | | | | | | | +--------+---------+ + + + documented as of this encounter Visit Diagnoses Not on filedocumented in this encounter"
--- OUTSIDE RECORDS SUMMARY | ~2019-07-09 | XMS | Encounter Summary ---
Demographics + + + | Address | [address] | | | [place] [address] | + + + | Home Phone [...] + +------+ + | Care Circuit Board Drafter Name | Role | Phone | + +------+ + | Prudencio Isaac MD | PCP | | + +------+ + Encounter Details +--------+ + + + + | Date | Type | Department | Care Team | Description | +--------+ + + + + | 04/24/ | Telephone | [facility] | Tai Stanton, | | | 2012 | | [place] [facility] [address] | [address] [facility] | | | | | [address] | [address] | | | | | Mailcode: Center | [place], [place] | | | | | [facility] and | [address] | | | | | Healing, Building [address] | [phone] | | | | | [place], [place] | | | | | | [address] | | | | | | [phone] | | | +--------+ + + + [...]
--- OUTSIDE RECORDS SUMMARY | ~2019-07-09 | XMS | Encounter Summary ---
Demographics + + + | Address | [address] | | | [place] [address] | + + + | Home Phone [...] + | Author | [facility] | | | and Eduardoana | + + + | Organization | [facility] | | | and Eduardoana | + + + | Address | Unknown | + + + | Phone | Unavailable | + + + Support + + + + + | Name | Relationship | Address | Phone | + + + + + | Poncho Oquendo | ECON | [address] | | | | | [place] | | | | | [address] | | + + + + + | Marta Upton | ECON | [place] | | | | | [address] | | + + + + + Care Team Providers + +------+ + | Care Urogynecology Physician Name | Role | Phone | [...] W[address] | | | | | [address] [place] | [place] [address] | | | | | [place] [address] | [phone] | | | | | [phone] | | | +--------+ + + + [...] THOMASTAI | | | | | | [place] [address] | | | | | | [phone] | | | | | | | | +--------+---------+ + + + documented as of this encounter Visit Diagnoses + + | Diagnosis | + + | Gallbladder cancer, 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
--- OUTSIDE RECORDS SUMMARY | ~2019-07-09 | XMS | Encounter Summary ---
Demographics + + + | Address | [address] | | | [place] [address] | + + + | Home Phone [...] Team Providers + +------+ + | Care Cannery Tender Engineer Name | Role | Phone | [...] | | | Reconstructive | [address] [place], | | | | | Services at [facility] | [place] [address] | | | | | [address] | [phone] | | | | | Mailcode: CH5E | | | | | | [facility] | | | | | | and Healing, | | | | | | Building 1, 5th | | | | | | Floor [place], [place] | | | | | | [address] | | | | | | [phone] | | | +--------+---------+ + + + [...] Surgery Dept. of Otolaryngology/Head and Neck Surgery [employer] tel fax email [email or web address] documented in this encounte r Plan of Treatment Not on filedocumented as of this encounter Visit Diagnoses + + | Diagnosis | + + | Perforation of nasal septum - Primary Other diseases of nasal cavity and sinuses | + + documented in this encounter"
--- OUTSIDE RECORDS SUMMARY | ~2019-07-09 | XMS | Encounter Summary ---
Demographics + + + | Address | [address] | | | [place] [address] | + + + | Home Phone [...] | Author | [facility] | | | and Eduardoana | + + + | Organization | [facility] | | | and Eduardoana | + + + | Address | Unknown | + + + | Phone | Unavailable | + + + Support + + + + + | Name | Relationship | Address | Phone | + + + + + | Poncho Oquendo | ECON | [address] | | | | | [facility] [place] | | | | | [address] | | + + + + + | Marta Upton | ECON | [place], [place] | | | | | [address] | | + + + + + Care Team Providers + +------+ + | Care Chair Mender Name | Role | Phone | + +------+ + PCP | Unavailable | + +------+ + Encounter Details +--------+ + + + + | Date | Type | Department | Care Team | Description | +--------+ + + + + | 03/19/ | Hospital | [facility] | | | | 2013 | Encounter | MED CTR XRAY [address] | | | | | | [address] [place] | | | | | | [place] [address] | | | | | | [phone] | | | +--------+ + + + [...] | 09/17/ | Office | Urology | Pdero Green, | | | 2019 | Visit | | DO [address]ish[address] | | | | | | [place] [address] | | | | | | [phone] | | | | | | | [...] Performed At | + + + | [facility] Diagnostic Imaging | HURST | | Department [address], [place] | [facility] | | [ rep ct [address]] [ rep ct [facility] | | st zip] Signed | - IMAGING | | | | | Patient Name: JENELLEAURA HANSON Physician: | | | [id number] : 1960 Age: 52 Sex: F Unit #: [id number] | | | Exam Date: 03/19/13 Location: [facility] | | | Report #: [id number] Page: | | | %(RAD)RES..mtdd.print.filter("pg") of %(RAD) | | | RES..mtdd.print.filter("tpg") | | | | | | Accession Number: [id number] | | | CT ABDOMEN WITH CONTRAST [...] | | | Transcribed Date/Time: 03/19/2013 18:25 Mixing Engineer: | | | MS1 <<Signature on File>> | | | Mathieu | | | Emir Brasher MD03/19/131940 <Electronically signed by Mathieu Field | | | Anshu LI> Mathieu Brasher MD 03/19/13 1446 | | | Mixing Engineer: Catarino Yuzgcgohxjyjx63/03/14 1825 | | | Epifanio Najera MD | | + + + + + + + + | Performing | Address | City/State/Zipcode | Phone Number | | Organization | | | | + + + + + | [facility] | [address] | [place] | [phone] | | [facility] | | [address] | | | - IMAGING | | | | + + + + + documented in this encounter Visit Diagnoses Not on filedocumented in this encounter
--- OUTSIDE RECORDS SUMMARY | ~2019-07-09 | XMS | Encounter Summary ---
Demographics + + + | Address | [address] | | | [place] [address] | + + + | Home Phone [...] Team Providers + +------+ + | Care Grader Green Meat Name | Role | Phone | + [...] | | | | | | | [facility] | | | | | | | Health and | | | | | | | Healing, | | | | | | | Building [address] | | | | | | | [place], [place] | | | | | | | [address] | | | | | | | Phone: | | | | | | | [phone] | | | | | | | Fax: | | | | | | | [phone] | +--------+--------+ + + + + Encounter Details +--------+---------+ + + + | Date | Type | Department | Care Team | Description | +--------+---------+ + + + | 11/01/ | Office | Dig[facility]ive Health | Tai Stanton, | Gallbladder | | 2012 | Visit | [facility] [address] | MD [address] [facility] | carcinoma (HCC) | | | | [address] | [address] | (Primary Dx) | | | | Mailcode: [place] | [place], [place] | | | | | [facility] and | [address] | | | | | [facility] 2 | [phone] | | | | | [place], [place] | | | | | | [address] | | | | | | [phone] | | | +--------+---------+ + + + [...] the resident s note. Tai Stanton M.D. [employer] ([facility]) Professor and Vice-Jet Inspector of Surgery The [facility] Chair for Pancreatic Disease Research Pancreatic/ HepatoBiliary and Foregut Working Groups Office email: [email or web address] Smitha Ngo Md - 11/01/2012 2:59 PM [...] primary oncologist (plan for survellence imaging in [facility]) -- Return to surgery clinic as needed Dr. Stanton has seen and examined the patient and agrees with the above plan. 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
--- OUTSIDE RECORDS SUMMARY | ~2019-07-09 | XMS | Clinical Summary ---
Demographics + + + | Address | [address] | | | [place] [address] | + + + | Home Phone | | + + + | Preferred Language | Unknown | + + + | Marital Status | Unknown | + + + | Protestant Affiliation | Unknown | + + + | Race | Unknown | + + + | Ethnic Group | Unknown | + + + Author + + + | Author | [facility] (Historical as of | | | 09-30-18) | + + + | Organization | [facility] (Historical as of | | | 09-30-18) | + + + | Address | Unknown | + + + | Phone | Unavailable | + + + Support + + + + + | Name | Relationship | Address | Phone | + + + + + | Poncho Oquendo | ELVIN | [address] | | | | | [place], [place] | | | | | [address] | | + + + + + Care Team Providers + +------+ + | 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 | Role | Phone | [...] Left: | COOK | | 11/12/ | [id number] | | - SnaImplanted: Qty: 1 on | | Ureter | [employer] | | 2019 | /NA | | 07/05/2018 by Pedro Green | | | - ROBERT | | | /[id number] | | W, DO | | | [...] +--------+ +------+-------+---------+ | [facility] | BLUE | [id number] | | | | | | CROSS | | | | | | | BLUE | | | | | | | SHIELD | | | | | | | FEP | | | | | + +--------+ +------+-------+---------+ | /[facility] | YELLOW | [id number] | | | | | PLANS | [...] | Self | [birth year] | Home: | [address] | | | al/Fam | | 2 | [phone] | [place] [address] | | | jose alejandro | | | [phone] | | + +--------+ +--------+ + +
--- OUTSIDE RECORDS SUMMARY | ~2019-07-09 | XMS | Encounter Summary ---
Demographics + + + | Address | [address] | | | [place] [address] | + + + | Home Phone [...] Author | [facility] | | | and Eduardoana | + + + | Organization | [facility] | | | and Eduardoana | + + + | Address | Unknown | + + + | Phone | Unavailable | + + + Support + + + + + | Name | Relationship | Address | Phone | + + + + + | Poncho Oquendo | ECON | [address] | | | | | [facility] [place] | | | | | [address] | | + + + + + | Marta Upton | ECON | [place] | | | | | [address] | | + + + + + Care Team Providers + +------+ + | Care Head End Desizing Machine Operator Name | Role | Phone [...] Callaway MD | | | 2018 | [facility] | [address] | | | | | OPERATING ROOM [address] | [place] [address] | | | | | [address] | [phone] | | | | | [place], [place] | | | | | | [address] | Cass Harris, | | | | | [phone] | MD [address] | | | | | | [place] [address] | | | | | | [phone] | | | | | | | | +--------+ + + + + Anesthesia Record + + + + + | Procedure Name | Responsible | Anesthesia Start | Anesthesia Stop Time | | | Anesthesiologist | Time | | + + + + + | CYSTOSCOPY URETERAL | Roger Callaway MD | 11/29/18 1329 | 11/29/18 140 | | STENT stent removal | | [...] 11/29/18 1550 by | | eral | [id number] catheter system; | Kim Denson RN | [...] VD | | | | | | [place] [address] | | | | | | [phone] | | | | | | | [...]
--- OUTSIDE RECORDS SUMMARY | ~2019-07-09 | XMS | Encounter Summary ---
Demographics + + + | Address | [address] | | | [place] [address] | + + + | Home Phone [...] Author | [facility] | | | and Eduardoana | + + + | Organization | [facility] | | | and Eduardoana | + + + | Address | Unknown | + + + | Phone | Unavailable | + + + Support + + + + + | Name | Relationship | Address | Phone | + + + + + | Poncho Oquendo | ECON | [address] | | | | | [place] | | | | | [address] | | + + + + + | Marta Upton | ECON | [place] | | | | | [address] | | + + + + + Care Team Providers + +------+ + | Care Solar Process Engineer Name | Role | Phone | [...] | | | | | Procedures | [address] | [place] [address] | | | | | [place] OFFICE | Phone: | Phone: | | | | | OUTPATIENT | [phone] | [phone] | | | | | VISIT 25 | Fax: | Fax: | | | | | MINUTES | [phone] | [phone] | +--------+--------+ + + + + Encounter Details +--------+ + + + + | Date | Type | Department | Care Team | Description | +--------+ + + + + | 08/06/ | Hospital | 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 Hematology-Oncology Progress Note [facility] Pt. Name/Age/: Aura Upton 55 y.o. 1960 CSN: [id number] Date of service: 08/06/2016 Provider: Vladimir Robles [...] scheduled. 1. Day 8, cycle #6 of gemcitabine/cis-nottawaseppi potawatomi. 2. Neupogen, Aranesp in [place]. 3. Follow-up scheduled with Dr. Najera on [...] Last chemotherapy was a week ago at [facility]. My chart: active. Medications: Current Outpatient Prescriptions [...] this chart may have been created with [employer] voice recognition software. Occasi onal wrong-word or [...] 2019 | Visit | | DO [address] | | | | | | [place] [address] | | | | | | [phone] | | | | | | | [...]
--- OUTSIDE RECORDS SUMMARY | ~2019-07-09 | XMS | Encounter Summary ---
Demographics + + + | Address | [address] | | | [place] [address] | + + + | Home Phone [...] Providers + +------+ + | Care Substation Designer Name | Role | Phone | [...] | Medicine Clinic at | [address] | (Primary Dx); | | | | [facility] 4th Floor [address] | [address] [place], | Gallbladder cancer | | | | [address] | [place] [address] | ([facility]); Other | | | | Mailcode: [facility] | [phone] | specified | | | | [facility] | | pre-operative | | | | and Healing, | | examination | | | | Building 1,4th Floor | | | | | | [place], [place] | | | | | | [address] | | | | | | [phone] | | | +--------+---------+ + + + [...] - | | Genevieve Acosta, | Marina Borgse RN | | Arteri | | MD [...] Surgery Check in Locations Day Stay Unit [facility] [place], fourth floor Room [address] [facility], fourth floor Admitting [facility], ninth floor [facility] Surgery Unit [facility], sixth floor Surgery Check in Time: The [...] hours, call the [facility] getter operator at [phone] and ask them to page him or h er. Preparing For Your Surgery Video -- 7 minutes of instructions! If you have access to the Internet and would like to review our instructional video about g etting ready for your procedure day, please follow these directions: Access the [facility] website [email or web address] --> POPULAR RESOURCES --> Patient Guide --> [...] further investigation and manageme nt. A. Acute LA within 7 days: no B. Unstable angina/Recent LA (7- 30 days): no C. Decompensated CHF: [...] no Rate of cardiac , non fatal LA, non fatal cardiac arrest (RCRI) 0 risk [...] NP [facility] PREOPERATIVE MEDICINE CLINIC [address] [place] [id number] I spent 20 minutes with the [...] | + +--------+ + + + | ID COLLECTION VENOUS | Routin | 04/27/2012 | [...] | | | LABORATORY | | | [facility] | | | SERVICES, | | | [...] [facility] | [address] | [place] [address] | | | SERVICES, CORE | PARK [...] [facility] | [address] | [place] [address] | | | SERVICES, | [address] [...] [facility] | [address] | [place] [address] | | | SERVICES, | [address] [...] view image for the detailed interpretation from Spool results. | CARDIOLOGY | + + + + + + + + | Performing | Address | City/State/Zipcode | Phone Number | | Organization | | | | + + + + + | [facility] | [address] | [place], [place] | | | CARDIOLOGY | [facility] | [address] | | + + + + + [...] + + | [facility] | [address] [facility] | [place] [address] | | | OF CARE TESTS | [...]
--- OUTSIDE RECORDS SUMMARY | ~2019-07-09 | XMS | Encounter Summary ---
Demographics + + + | Address | [address] | | | [place] [address] | + + + | Home Phone [...] Author | [facility] | | | and [place]ardo[place] | + + + | Organization | [facility] | | | and Eduardoana | + + + | Address | Unknown | + + + | Phone | Unavailable | + + + Support + + + + + | Name | Relationship | Address | Phone | + + + + + | Poncho Oquendo | ECON | [address] | | | | | [place] | | | | | [address] | | + + + + + | Marta Upton | ECON | [place] | | | | | [address] | | + + + + + Care Team Providers + +------+ + | Care Cuff Folder Name | Role | Phone | + [...] + | 10/10/ | Telephone | [facility] | Reinaldo, | Lab Results | | 2018 | | [facility] | Epifanio Soler MD [address] | | | | | ONCOLOGY CLINIC [address] | [facility] | | | | | [address] | [place] [address] | | | | | [place] [address] | [phone] | | | | | [phone] | | | +--------+ + + + [...] [address] | | | | | | [place] [address] | | | | | | [phone] | | | | | | | | +--------+---------+ + + + documented as of this encounter Visit Diagnoses Not on filedocumented in this encounter"
--- OUTSIDE RECORDS SUMMARY | ~2019-07-09 | XMS | Encounter Summary ---
Demographics + + + | Address | [address] | | | [place] [address] | + + + | Home Phone [...] + | Author | [facility] | | | and Eduardoana | + + + | Organization | [facility] | | | and Eduardoana | + + + | Address | Unknown | + + + | Phone | Unavailable | + + + Support + + + + + | Name | Relationship | Address | Phone | + + + + + | Poncho Oquendo | ECON | [address] | | | | | [place] | | | | | [address] | | + + + + + | Marta Upton | ECON | [place] | | | | | [address] | | + + + + + Care Team Providers + +------+ + | Care Nurse Outreach Case Manager Name | Role | Phone [...] | ONCOLOGY CLINIC [address] | [facility] | | | | | [facility] | [place] [address] | | | | | [place] [address] | [phone] | | | | | [phone] | | | +--------+ + + + [...] [facility] | | | | | | [facility] [address] | | | | | | [phone] | | | | | | | | +--------+---------+ + + + documented as of this encounter Visit Diagnoses Not on filedocumented in this encounter"
--- OUTSIDE RECORDS SUMMARY | ~2019-07-09 | XMS | Encounter Summary ---
Demographics + + + | Address | [address] | | | [place] [address] | + + + | Home Phone [...] | [facility] | | | and Eduardoana | + + + | Organization | [facility] | | | and Eduardoana | + + + | Address | Unknown | + + + | Phone | Unavailable | + + + Support + + + + + | Name | Relationship | Address | Phone | + + + + + | Poncho Oquendo | ECON | [address] | | | | | [facility] [place] | | | | | [address] | | + + + + + | Marta Upton | ECON | [place], [place] | | | | | [address] | | + + + + + Care Team Providers + +------+ + | Care Bow String Maker Name | Role | Phone | + +------+ + PCP | Unavailable | + +------+ + Encounter Details +--------+ + + + + | Date | Type | Department | Care Team | Description | +--------+ + + + + | 03/19/ | Hospital | [facility] | | | | 2013 | Encounter | MED CTR CANCER | | | | | | CENTER [address] | | | | | | [place] | | | | | | [address] | | | | | | [phone] | | | +--------+ + + + [...] | | | | | [place] [address] | | | | | | [phone] | | | | | | | [...] + | [facility] | [address] | [place] | [phone] | | [facility] | | [address] | | | - LABORATORY | | | | + + + + + | [facility] | [address] | [place] | | | [facility] | | [address] | | | - LABORATORY [...] | [facility] | | | | [facility] | | MEDICAL | | | [...] + | [facility] | [address] | [place] | [phone] | | [facility] | | [address] | | | - LABORATORY | | | | + + + + + | [facility] | [address] | [place] | | | [facility] | | [address], [facility] | | | [...] | | | | [address], [place], [place] | | | | | | [address] CLIA: | | | | | | [id number] | | | | + + + + + + + + | Specimen | + + | | + + + + + + + | Performing | Address | City/State/Zipcode | Phone Number | | Organization | | | | + + + + + | [facility] | [address] | [place] | [phone] | | [facility] | | [address] | | | - LABORATORY | | | | + + + + + | [facility] | [address] | [place] | | | [facility] | | [address] | | | - LABORATORY [...] 11 | 7 - 18 mg/dL | [facility] | | | | | | [facility] | | | | | | MEDICAL | | | | | | CENTER - | | | | | | LABORATORY | | + + + + + + | Creatinine | 0.72 | 0.60 - 1.30 | [facility] | | | | | mg/dL | [facility] | | | | | | MEDICAL | | | | | | CENTER - | | | | | | LABORATORY | | + + + + + + | Estimated | >60Comment: For | >60 mL/min/A | [facility] | | | GFR | [...] + | [facility] | [address] | [place], [place] | [phone] | | [facility] | | [address] | | | - LABORATORY | | | | + + + + + | [facility] | [address] | [place], [place] | | | [facility] | | [address] | | | - LABORATORY [...] + | [facility] | [address] | [place] | [phone] | | [facility] | | [address] | | | - LABORATORY | | | | + + + + + | [facility] | [address] | [place] | | | [facility] | | [address] | | | - LABORATORY | | | | + + + + + documented in this encounter Visit Diagnoses Not on filedocumented in this encounter"
--- OUTSIDE RECORDS SUMMARY | ~2019-07-09 | XMS | Encounter Summary ---
Demographics + + + | Address | [address] | | | [place] [address] | + + + | Home Phone [...] + | Author | [facility] | | | and Eduardoana | + + + | Organization | [facility] | | | and Eduardoana | + + + | Address | Unknown | + + + | Phone | Unavailable | + + + Support + + + + + | Name | Relationship | Address | Phone | + + + + + | Poncho Oquendo | ECON | [address] | | | | | [place] | | | | | [address] | | + + + + + | Marta Upton | ECON | [place] | | | | | [address] | | + + + + + Care Team Providers + +------+ + | Care Numerical Control Nesting Operator Name | Role | Phone | + +------+ + | Valeriy Carmona DO | PCP | | + +------+ + Encounter Details +--------+ + + + + | Date | Type | Department | Care Team | Description | +--------+ + + + + | 05/07/ | Orders Only | [facility] | Marcelina Johnson, | | | 2016 | | MED CTR CHEMO | RN | | | | | INFUSION [address] | | | | | | [place], | | | | | | [place] [address] | | | | | | [phone] | | | +--------+ + + + [...] | | | | | [place] [address] | | | | | | [phone] | | | | | | | | +--------+---------+ + + + documented as of this encounter Visit Diagnoses Not on filedocumented in this encounter"
--- OUTSIDE RECORDS SUMMARY | ~2019-07-09 | XMS | Encounter Summary ---
Demographics + + + | Address | [address] | | | [place] [address] | + + + | Home Phone [...] | [facility] | | | and Eduardoana | + + + | Organization | [facility] | | | and Eduardoana | + + + | Address | Unknown | + + + | Phone | Unavailable | + + + Support + + + + + | Name | Relationship | Address | Phone | + + + + + | Poncho Oquendo | ECON | [address] | | | | | [place] | | | | | [address] | | + + + + + | Marta Upton | ECON | [place] | | | | | [address] | | + + + + + Care Team Providers + +------+ + | Care Sausage Grinder Name | Role | Phone | [...] 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, | [address]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 | MD [address] | [place], | | | | | (HCC) | [address] | [place] [address] | | | | | Procedures | [place], | Phone: | | | | | [place] | [place] [address] | [phone] | | | | | [place] | Phone: | Fax: | | | | | HCL | [phone] | [phone] | | | | | INJECTION, 1 | Fax: | | | | | | [place] | [phone] | | | | | | FOSAPREPITAN [...] + + | 10/31/ | Hospital | [facility] | Reinaldo, | Gallbladder cancer, | | 2015 | Encounter | MED CTR CHEMO | Epifanio Soler MD [address] | carcinoma (HCC) | | | | INFUSION [address] | [address] [place] | (Primary Dx) | | | | [place], | [place] [address] | | | | | [place] [address] | [phone] | | | | | [phone] | | | +--------+ + + + [...] [facility] | | | | | | [place] [address] | | | | | | [phone] | | | | | | | [...] with autodiff. | [facility] | | | [facility] | | | [facility] | | | - LABORATORY | + + + + + + + + | Performing | Address | City/State/Zipcode | Phone Number | | Organization | | | | + + + + + | [facility] | [address] | [place] | [phone] | | [facility] | | [address] | | | - LABORATORY | | [...] | | | | | | [place] [address] | | | | + + + + + + + + | Specimen | + + | Blood specimen | | (specimen) | + + + + + + + | Performing | Address | City/State/Zipcode | Phone Number | | Organization | | | | + + + + + | [facility] | [address] | [place] [address] | [phone] | + + + + + [place] [...] [address] | [place] | [phone] | | [facility] | | [address] | | | - LABORATORY | | [...] + | [facility] | [address] | [place] | [phone] | | [facility] | | [address] | | | - LABORATORY | | [...] | | | | mmol/L | [facility] | | | | | [...] | mL/min/1.73m2 | [facility] | | | [place] | RATE,ESTIMATED | | MEDICAL | | | | mL/min/1.45v4Sqyl than | | CENTER - | | [...] [address] | [place] | [phone] | | [facility] | | [address] | | | - LABORATORY | | [...] [address] | [place] | [phone] | | [facility] | | [address] | | | - LABORATORY | | [...] | | | | | Intracatheter, ONCE, [facility] 10/31/14 | | AM PDT | [...] | | | over 1 Hours, ONCE, [facility] 10/31/14 | | | | | [...] | | | over 30 Minutes, ONCE, [facility] | | | | | [...] | | | | | Care, Starting [facility] 10/31/14 at | | | | [...] | | | | | Minutes, ONCE, [facility] 10/31/14 at | | | | | | | 1015, For 1 dose, Administer | | | | | | | prior to chemotherapy., | | | | | | + +---------+ +---+-------+---+ +---+---+ | | | +---+---+ documented in this encounter"
--- OUTSIDE RECORDS SUMMARY | ~2019-07-09 | XMS | Encounter Summary ---
Demographics + + + | Address | [address] | | | [place] [address] | + + + | Home Phone [...] Author | [facility] | | | and Eduardoana | + + + | Organization | [facility] | | | and Eduardoana | + + + | Address | Unknown | + + + | Phone | Unavailable | + + + Support + + + + + | Name | Relationship | Address | Phone | + + + + + | Poncho Oquendo | ECON | [address] | | | | | [place] | | | | | [address] | | + + + + + | Marta Upton | ECON | [place] | | | | | [address] | | + + + + + Care Team Providers + +------+ + | Care Entry Level Account Manager Name | Role | Phone | + +------+ + | Valeriy Carmona DO | PCP | | + +------+ + Encounter Details +--------+ + + + + | Date | Type | Department | Care Team | Description | +--------+ + + + + | 05/13/ | Orders Only | [facility] | Marcelina Johnson, | | | 2017 | | MED CTR CHEMO | RN | | | | | INFUSION [address] | | | | | | [place], | | | | | | [place] [address] | | | | | | [phone] | | | +--------+ + + + [...] | | | | | [place] [address] | | | | | | [phone] | | | | | | | | +--------+---------+ + + + documented as of this encounter Visit Diagnoses Not on filedocumented in this encounter"
--- OUTSIDE RECORDS SUMMARY | ~2019-07-09 | XMS | Encounter Summary ---
Demographics + + + | Address | [address] | | | [place] [address] | + + + | Home Phone [...] + | Author | [facility] | | | and Eduardoana | + + + | Organization | [facility] | | | and Eduardoana | + + + | Address | Unknown | + + + | Phone | Unavailable | + + + Support + + + + + | Name | Relationship | Address | Phone | + + + + + | Poncho Oquendo | ECON | [address] | | | | | [facility] [place] | | | | | [address] | | + + + + + | Marta Upton | ECON | [place], [place] | | | | | [address] | | + + + + + Care Team Providers + +------+ + | Care Manager Protein Name | Role | Phone | + +------+ + PCP | Unavailable | + +------+ + Encounter Details +--------+ + + + + | Date | Type | Department | Care Team | Description | +--------+ + + + + | 09/28/ | Hospital | [facility] | Hakan Cherry | | | 2011 | Encounter | MED CTR XRAY [address] | [address] | | | | [place] | [address] [place], [place] | | | | | [place] [address] | [address] | | | | | [phone] | | | +--------+ + + + [...] | Visit | | DO [address] [facility] | | | | | | [place] [address] | | | | | | [phone] | | | | | | | [...] Performed At | + + + | [facility] Diagnostic Imaging Department | [facility] | | [address] [facility] | [facility] | | 09/29/2011, LUMBAR FACET | DIAG [...] Transcribed Date/Time: | | | 09/30/2011 07:23 Caption Writer: <Electronically Signed | | | by Hakan Cherry MD> 10/01/11 0936 | | + + + + + | Procedure Note | + + | Edmundo, Rad Conversion - 03/23/2013 5:52 PM [facility] | | Diagnostic Imaging Department | | [address] [facility] | | | | | | [...] | Transcribed Date/Time: 09/30/2011 07:23 | | Caption Writer: | | <Electronically Signed by Hakan Cherry MD> 10/01/11 0936 | + + + +---------+ + + | Performing | Address | City/State/Zipcode | Phone Number | | Organization | | | | + +---------+ + + | [place] | | | | | [employer] [facility] | | | | + +---------+ + + documented in this encounter Visit Diagnoses Not on filedocumented in this encounter"
--- OUTSIDE RECORDS SUMMARY | ~2019-07-09 | XMS | Clinical Summary ---
Demographics + + + | Address | [address] | | | [place] [address] | + + + | Home Phone [...] Author | [facility] | | | and Eduardoana | + + + | Organization | 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 [[facility] | | Health and Services Provider Handbook [...] Garcia on | | 03/29/2012. Pathological specimen [id number] was analyzed by | | Liu Bowers M.D. of [facility] and was notable | | for a poorly-differentiated adenocarcinoma of the gallbladder. | | Liver biopsy was performed at the same time of the procedure and | | demonstrated portal inflammation.2. On 04/26/2012, she | | successfully underwent a R0 resection by Dr. Tai Stanton, of | | the [facility]. Pathological specimen | | [id number] was notable for the absence of any residual | | carcinoma within the gallbladder bed; however, 2/8 regional lymph | | nodes were positive for regionally metastatic disease.3. | | Consultation with Dr. Elva Grey of the [facility] | | [facility] on 05/17/2012, which returned the | | [...] Henderson of the | | [facility]. 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 However, 122 of the remaining genes | | analyzed in the assay were all wild type.7. Repeat consultation | | with Dr. Elva Grey of the [facility] | | on 06/26/2014 returned the recommendation for additional | | chemotherapy with cisplatin at 75 mg/m2 on day 1 with gemcitabine | | at 1250 mg/m2 on day-1 and day-8 of the every 21-day cycle for | | 6-8 cycles. This was followed by a second opinion by Dr. Quiroz | | Jeovany of the [facility] who recommended | | chemotherapy with cisplatin [...] recommendations of Dr. Richie Thayer of the [facility] | | [facility] with gemcitabine at 1000 mg/m2 on day-1 and day-8 with | | cisplatin 25 mg/m2 on day-1 and day-8 of the every 21-day cycle, | | beginning on 07/26/2014. Chemotherapy was complicated by grade 3 | | neutropenia without fever a grade 3 thrombocytopenia without | | bleeding.10. Repeat CT scan of the abdomen and pelvis on | | 09/16/2014 at the [facility] in [facility] | | [place], demonstrated stable postoperative changes [...] the chest, abdomen, and pelvis at the [facility] in [place], [place], | | demonstrated stable postoperative changes [...] abdomen, and | | pelvis at the [facility] in [place], [place], on | | 06/23/2015 demonstrating postoperative changes in the right upper | | quadrant. No evidence of recurrence or any evidence of | | metastatic disease.15. Repeat CT scan of the chest, abdomen, and | | pelvis at the [facility] in [place], [place], on | | 09/24/2015 demonstrating right upper quadrant post-surgical | | changes. No evidence of recurrent neoplasm. Interval development | | of a small hernia containing bowel and fat 3 cm above the | | umbilicus.16. Repeat CT scan of the abdomen and pelvis on | | 12/22/[address] [facility] in [place], [place], | | demonstrating a 1.5 cm soft tissue nodule just inferior to the | | liver within the mesentery on the right. In addition, there were | | tiny nodules in the bilateral upper quadrants.17. PET CT scan at | | [facility] in [place], [place], on 12/31/2015 | | demonstrating benign findings. The nodularity along the omental | | fat along the left colon and liver tail showed no abnormal | | uptake.18. Presentation to the [facility] Emergency | | Room on 03/15/2016 [...] | Repeat CT scan of C/A/P at [facility] on July 01, 2016 | | [...] | | contrast, October 06, 2016, at [facility] in [facility] | | [place], demonstrated no evidence of recurrence or metastatic | | disease. Aura continued on observation without treatment.23. | | Repeat CT scan of the chest/abdomen/pelvis at [facility] demonstrated progression of disease and | | [...] will see Dr. Richie Thayer at the [facility] | [facility]. 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 Followed by | | Ellyn at [facility] in [place]. | | -04/26/2012: R0 Resection. -05/31/2012-09/03/2012 | [...] | 07/03/ | Telephone | Oncology | Rienaldo, | Coordination Of Care | | 2019 [...] | + + + + | INFLUENZA, [id number], | 04/14/2009 | | | UNSPECIFIED | [...] | | | | | [place] [address] | | | | | | [phone] | | | | | | | [...] | ROBERT JONES | | 06/28/ | [id number] | | - SnaImplanted: Qty: 1 on | | | INCORPORATE | | 2020 | /NA | | 11/29/2018 by Pedro Green | | | D | | | [id number] | | DO Alessandra at [facility] | | | | | | 02 | [facility] | | | | | | | + +-------+--------+ +--------+--------+--------+ | [employer] Ureteral Stent | Stent | Left: | ROBERT JONES | | 09/06/ | [id number] | | And PositionerImplanted: Qty: | | Ureter | INCORPORATE | | 2021 | 4-R, | | 1 on 04/27/2019 by Peter, | | | D | | | [id number] | | Pedro Aparicio DO at [facility] | | | | | | /NA | | | | | | | | /[id number] | | | | | | | | 29 | + +-------+--------+ +--------+--------+--------+ | Stent Uro Unvrs Frm 7fr 24cm | | Left: | ROBERT JONES | | 11/12/ | [id number] | | - SnaImplanted: Qty: 1 on | | Ureter | INCORPORATE | | 2019 | /NA | | 07/05/2018 by Pedro Green | | | D | | | [id number] | | DO Alessandra | | | [...] CRNA Authorizing provider: | | | Linden Hlil CRNA Please see intraoperative grid | | [...] +--------+ +--------+-------+---------+--------+ | BCBS | BCBS | [id number] | 02/14/19 | | | PPO | | | FEDERA | | 16-Pre | | | | | | L FEP | | sent | | | | + +--------+ +--------+-------+---------+--------+ | BCBS | BCBS | [id number] | 02/14/19 | | | PPO | | | FEDERA | | 16-Pre | | | | | | L FEP | | sent | | | | + +--------+ +--------+-------+---------+--------+ | [facility] | IHS | [id number] | 02/14/19 | | | Indemn | | SERVICE | YELLOW | | 13-Pre | | | ity | | | HAWK | | sent | | | | + +--------+ +--------+-------+---------+--------+ | [facility] | IHS | [id number] | 02/14/19 | | | Indemn | [...] Person | Self | [birth year] | [address] | | | al/Jaspreet | | 1961 | [phone] | [place] [address] | | | jose alejandro | | | 5 (Home) | | | | | | | [phone] | | | | | | | 6 (Work) | | + +--------+ +--------+ + + | Cody Uptonureen | Person | Self | [birth year] | | [address] | | | al/Jaspreet | | 1961 | [phone] | [place] [address] | | | jose alejandro | | | 5 (Home) | | + +--------+ +--------+ + + Advance Directives + + + + + | Type | Date Recorded | Patient | Explanation | | | | Tread Booker | | + + + + + | Power of | | | | | Karate Instructor | | | | + + + [...]
--- OUTSIDE RECORDS SUMMARY | ~2019-07-09 | XMS | Encounter Summary ---
Demographics + + + | Address | [address] | | | [place] [address] | + + + | Home Phone [...] + | Author | [facility] | | | and Eduardoana | + + + | Organization | [facility] | | | and Eduardoana | + + + | Address | Unknown | + + + | Phone | Unavailable | + + + Support + + + + + | Name | Relationship | Address | Phone | + + + + + | Poncho Oquendo | ECON | [address] | | | | | [facility] [place] | | | | | [address] | | + + + + + | Marta Upton | ECON | [place], [place] | | | | | [address] | | + + + + + Care Team Providers + +------+ + | Care Manager Action Name | Role | Phone | + [...] SR | | | | | [address] [facility] [address] [facility] [address] | | | | | | [place], [place] | | | | | | [address] | | | | | | [phone] | | | +--------+ + + + [...] [address] | | | | | | [place] [address] | | | | | | [phone] | | | | | | | [...]
--- OUTSIDE RECORDS SUMMARY | ~2019-07-09 | XMS | Encounter Summary ---
Demographics + + + | Address | [address] | | | [place] [address] | + + + | Home Phone [...] Team Providers + +------+ + | Care Butcher Meat Name | Role | Phone | [...] | | | | | | [place] | | | | | | [address] | | | +--------+ + + + [...] + + documented in this encounter Results [employer] SOLID TUMOR PANEL (03/23/2016) + + + + + + | Component | Value | Ref Range | Performed | Pathologist | | | | | At | Signature | + + + + + + | [facility] | [facility] | | [facility] | [...] | | | | | | NTRK1 [id number] | | | | | | CDKN2A FGF18 | | | | | | KRAS NTRK2 | | | | | | [id number] CHEK1 | | | | | | FGF19 MAP2K1 | | | | | | NTRK3 [id number] | | | | | | CHEK2 FGF3 | | | | | | MAP2K2 PALB2 | | | | | | UTP0NOH CTNNB1 | | | | | | FGF4 MAP2K4 | | | | | | QEXW5GZ2 IWQU6FN | | | | | | DDR2 FGFR1 MAPK1 | | | | | | PDGFRA | | | | | | PD0CSSA DDX11 | | | | | | FGFR2 MDC1 PIK3CA | | | | | | PPELPDX9W EGFR | | | | | | FGFR3 MDM2 PIK3CB | | | | | | RICTORATM ERBB2 | | | | | | FGFR4 MDM4 | | | | | | PIK3R1 RFW6TIG | | | | | | ERBB3 GNA11 | | | | | | MET PMS1 VNS3HFW9 | | | | | | ERBB4 GNAQ MLH1 | | | | | | PMS2 RPTORBARD1 | | | | | | ERCC2 GNAS MLH3 | | | | | | POLE MOJA9GLGN ERCC5 | | | | | | WTSE0Z1W MRE11A | | | | | | FNU2S0L [id number] | | | | | | ESR1 HRAS MSH2 | | | | | | PPP6C [id number] | | | | | | [id number] IDH1 | | | | | | MSH6 PTCH1 | | | | | | [id number] FANCA | | | | | | IDH2 MTOR PTEN | | | | | | [id number] FANCC | | | | | | IDO1 MUTYH | | | | | | RAC1 [id number] | | | | | | FANCD2 IDO2 MYC | | | | | | RAD50 [id number] | | | | | | FANCE INPP4B | | | | | | NBN RAD51 | | | | | | [id number] FANCF | | | | | | JAK2 NF1 | | | | | | [id number] | | | | | | FANCG [...] | | | | | | MSH2 [id number] | | | | | | c.980C>T hg19 chr2 | | | | | | [id number] C | | | | | | TTP53 [id number] | | | | | | c.743G>A hg19 chr17 | | | | | | [id number] | | | | | | C [...] # | | | | | | [id number]. It has not | | | | [...] | | | | | determined bythe [facility] | | | | | | Carter [...] | | | | the state of [place] | | | | | | under CLIA and | | | | | | areaccredited by [place] | | | | | | of [place] | | | | | | Pathologists [...] + + + + | FRANK | [address] | [place] [address] | | | DIAGNOSTIC | [address] | | | | LABORATORIES | | | | + + + + + documented in this encounter Visit Diagnoses Not on filedocumented in this encounter"
--- OUTSIDE RECORDS SUMMARY | ~2019-07-09 | XMS | Encounter Summary ---
Demographics + + + | Address | [address] | | | [place] [address] | + + + | Home Phone [...] + + | Author | [facility] | | | and Eduardoana | + + + | Organization | [facility] | | | and Eduardoana | + + + | Address | Unknown | + + + | Phone | Unavailable | + + + Support + + + + + | Name | Relationship | Address | Phone | + + + + + | Poncho Oquendo | ECON | [address] | | | | | [place] | | | | | [address] | | + + + + + | Marta Upton | ECON | [place] | | | | | [address] | | + + + + + Care Team Providers + +------+ + | Care Window Cutter Name | Role | Phone | + +------+ + | Valeriy Carmona DO | PCP | | + +------+ + Encounter Details +--------+ + + + + | Date | Type | Department | Care Team | Description | +--------+ + + + + | 08/27/ | Hospital | [facility] | Valeriy Carmona, | Breast nodule | | 2016 | Encounter | MED CTR ULTRASOUND | DO [address] | | | | | [address] | [place] [address] | | | | | [place] | [phone] | | | | | [address] | | | | | | [phone] | Vee Rebolledo | | | | | | A, Technologist | | | | | | [place] | | | | | | [address] | | +--------+ + + + + [...] [address] | | | | | | [place] [address] | | | | | | [phone] | | | | | | | [...]
--- OUTSIDE RECORDS SUMMARY | ~2019-07-09 | XMS | Encounter Summary ---
Demographics + + + | Address | [address] | | | [place] [address] | + + + | Home Phone [...] [facility] | | | and Eduardoana | + + + | Organization | [facility] | | | and Eduardoana | + + + | Address | Unknown | + + + | Phone | Unavailable | + + + Support + + + + + | Name | Relationship | Address | Phone | + + + + + | Poncho Oquendo | ECON | [address] | | | | | [facility] [place] | | | | | [address] | | + + + + + | Marta Upton | ECON | [place], [place] | | | | | [address] | | + + + + + Care Team Providers + +------+ + | Care Service Coordinator Name | Role | Phone | + +------+ + PCP | Unavailable | + +------+ + Encounter Details +--------+ + + + + | Date | Type | Department | Care Team | Description | +--------+ + + + + | 07/15/ | Hospital | [facility] | | | | 2000 | Encounter | MED CTR GENERIC OP | | | | | | CONV DEPT [address] | | | | | | [place], | | | | | | [place] [address] | | | | | | [phone] | | | +--------+ + + + [...] | | | | | [place] [address] | | | | | | [phone] | | | | | | | | +--------+---------+ + + + documented as of this encounter Visit Diagnoses Not on filedocumented in this encounter"
--- OUTSIDE RECORDS SUMMARY | ~2019-07-09 | XMS | Encounter Summary ---
Demographics + + + | Address | [address] | | | [place] [address] | + + + | Home Phone [...] | Author | [facility] | | | and Eduardoana | + + + | Organization | [facility] | | | and Eduardoana | + + + | Address | Unknown | + + + | Phone | Unavailable | + + + Support + + + + + | Name | Relationship | Address | Phone | + + + + + | Poncho Oquendo | ECON | [address] | | | | | [place] | | | | | [address] | | + + + + + | Marta Upton | ECON | [place] | | | | | [address] | | + + + + + Care Team Providers + +------+ + | Care Sas Bi Developer Name | Role | Phone [...] | | | | | mass | [place], COCOA POWDER MIXER OPERATOR | | | | | | Procedures | [address] | | | | | | CT Chest | [place] | | | | | | Abdomen | [place], [place] | | | | | | Pelvis w | [address] | | | | | | Contrast CT | Phone: | | | | | | Abdomen | [phone] | | | | | | Pelvis w | Fax: | | | | | | Contrast | [phone] | | +--------+--------+ + + + + Encounter Details +--------+ + + + + | Date | Type | Department | Care Team | Description | +--------+ + + + + | 05/22/ | Hospital | [facility] | Latoya Holt | Ovarian mass | | 2015 | Encounter | MED CTR CT [address] | [place], COCOA POWDER MIXER OPERATOR [address] | | | | | [place], | [address] [place] | | | | | [place] [address] | [place] [address] | | | | | [phone] | [phone] | | | | | | | [...] [address] | | | | | | [place] [address] | | | | | | [phone] | | | | | | | [...] | | | administration of 100 mL [id number] contrast. Multiplanar | | | reformatted images [...] intravenous administration of 100 mL | | [id number] contrast. Multiplanar reformatted images created.RADIATION DOSE: DLP [...]
--- OUTSIDE RECORDS SUMMARY | ~2019-07-09 | XMS | Encounter Summary ---
Demographics + + + | Address | [address] | | | [place] [address] | + + + | Home Phone [...] Providers + +------+ + | Care Trolley Coach Driver Name | Role | Phone | [...] | | | Alexis [address] | [facility] | | | | | [address] | [place], [place] | | | | | Alexis, 7th floor | [address] | | | | | [place], [place] | [phone] | | | | | [address] | | | | | | [phone] | | | +--------+ + + + [...]
--- OUTSIDE RECORDS SUMMARY | ~2019-07-09 | XMS | Encounter Summary ---
Demographics + + + | Address | [address] | | | [place] [address] | + + + | Home Phone [...] Team Providers + +------+ + | Care Secretary To The Vice President Name | Role | Phone | + [...] | | | Reconstructive | Velma [place], | | | | | Services at [facility] | [place] [address] | | | | | [address] | [phone] | | | | | Mailcode: [address] | | | | | | [facility] | | | | | | and Healing, | | | | | | Building | | | | | | [place], [place] | | | | | | [address] | | | | | | [phone] | | | +--------+ + + + [...]
--- OUTSIDE RECORDS SUMMARY | ~2019-07-09 | XMS | Encounter Summary ---
Demographics + + + | Address | [address] | | | [place] [address] | + + + | Home Phone [...] Team Providers + +------+ + | Care Infertility Nurse Name | Role | Phone | + +------+ + | Prudencio Isaac MD | PCP | | + +------+ + Encounter Details +--------+ + + + + | Date | Type | Department | Care Team | Description | +--------+ + + + + | 04/21/ | Telephone | [facility] | Tai Stanton, | | | 2012 | | [place] [address] | [address] | | | | | [address] | Surendra Carreon | | | | | Mailcode: Center | [place], [place] | | | | | [facility] and | [address] | | | | | Healing, [address] | [phone] | | | | | [place], [place] | | | | | | [address] | | | | | | [phone] | | | +--------+ + + + [...]
--- OUTSIDE RECORDS SUMMARY | ~2019-07-09 | XMS | Encounter Summary ---
Demographics + + + | Address | [address] | | | [place] [address] | + + + | Home Phone [...] + + | Author | [facility] | | | and Eduardoana | + + + | Organization | [facility] | | | and Eduardoana | + + + | Address | Unknown | + + + | Phone | Unavailable | + + + Support + + + + + | Name | Relationship | Address | Phone | + + + + + | Poncho Oquendo | ECON | [address] | | | | | [place] | | | | | [address] | | + + + + + | Marta Upton | ECON | [place] | | | | | [address] | | + + + + + Care Team Providers + +------+ + | Care Stubber Name | Role | Phone | + [...] Only | [facility] | Reinaldo, | Community acquired | | 2018 | | MED [facility] | Epifanio Soler MD [address] | pneumonia of right | | | | [facility] CLINIC [address] | [address] [place] | lower lobe of lung | | | | [address] [place] | [place] [address] | (Primary Dx) | | | | [place] [address] | [phone] | | | | | [phone] | | | +--------+ + + + [...] | | | | | [place] [address] | | | | | | [phone] | | | | | | | | +--------+---------+ + + + documented as of this encounter Visit Diagnoses + + | Diagnosis | + + | Community acquired pneumonia of right lower lobe of lung - Primary | + + documented in this encounter"
--- OUTSIDE RECORDS SUMMARY | ~2019-07-09 | XMS | Encounter Summary ---
Demographics + + + | Address | [address] | | | [place] [address] | + + + | Home Phone [...] Author | [facility] | | | and Eduardoana | + + + | Organization | [facility] | | | and Eduardoana | + + + | Address | Unknown | + + + | Phone | Unavailable | + + + Support + + + + + | Name | Relationship | Address | Phone | + + + + + | Poncho Oquendo | ECON | [address] | | | | | [place] | | | | | [address] | | + + + + + | Marta Upton | ECON | [place] | | | | | [address] | | + + + + + Care Team Providers + +------+ + | Care Fuel Distribution System Operator Name | Role | Phone [...] | | | ONCOLOGY CLINIC [address] | [facility] | | | | | [address] [facility] | [place] [address] | | | | | [place] [address] | [phone] | | | | | [phone] | | | +--------+ + + + [...] | | | [facility] [address] | | | | | | [phone] | | | | | | | | +--------+---------+ + + + documented as of this encounter Visit Diagnoses Not on filedocumented in this encounter"
--- OUTSIDE RECORDS SUMMARY | ~2019-07-09 | XMS | Encounter Summary ---
Demographics + + + | Address | [address] | | | [place] [address] | + + + | Home Phone [...] | Author | [facility] | | | and Eduardoana | + + + | Organization | [facility] | | | and Eduardoana | + + + | Address | Unknown | + + + | Phone | Unavailable | + + + Support + + + + + | Name | Relationship | Address | Phone | + + + + + | Poncho Oquendo | ECON | [address] | | | | | [place] | | | | | [address] | | + + + + + | Marta Upton | ECON | [place] | | | | | [address] | | + + + + + Care Team Providers + +------+ + | Care Public Administration Teacher Name | Role | Phone | [...] [address] | [facility] | | | | | [address] [facility] | [place] [address] | | | | | [place] [address] | [phone] | | | | | [phone] | | | +--------+ + + + [...] [address] | | | | | | [facility] [address] | | | | | | [phone] | | | | | | | | +--------+---------+ + + + documented as of this encounter Visit Diagnoses Not on filedocumented in this encounter"
--- OUTSIDE RECORDS SUMMARY | ~2019-07-09 | XMS | Encounter Summary ---
Demographics + + + | Address | [address] | | | [place] [address] | + + + | Home Phone [...] + | Author | [facility] | | | and Eduardoana | + + + | Organization | [facility] | | | and Eduardoana | + + + | Address | Unknown | + + + | Phone | Unavailable | + + + Support + + + + + | Name | Relationship | Address | Phone | + + + + + | Poncho Oquendo | ECON | [address] | | | | | [place] | | | | | [address] | | + + + + + | Marta Upton | ECON | [place] | | | | | [address] | | + + + + + Care Team Providers + +------+ + | Care Debubblizer Name | Role | Phone | + [...] | | | ONCOLOGY CLINIC [address] | [facility] | | | | | [address] [facility] | [place] [address] | | | | | [place] [address] | [phone] | | | | | [phone] | | | +--------+ + + + [...] [place] | | | | | | [facility] [address] | | | | | | [phone] | | | | | | | | +--------+---------+ + + + documented as of this encounter Visit Diagnoses Not on filedocumented in this encounter"
--- OUTSIDE RECORDS SUMMARY | ~2019-07-09 | XMS | Encounter Summary ---
Demographics + + + | Address | [address] | | | [place] [address] | + + + | Home Phone [...] Team Providers + +------+ + | Care Take Down Sorter Name | Role | Phone | [...] [place] | | | | | | [address] | | | | | | [phone] | | | +--------+ + + + [...] + + | [facility] | [address] | [place] [address] | | | SERVICES, CORE [...] [facility] | [address] | [place] [address] | | | SERVICES, SAM | PARK [...] | + + + + + | [facility] | [address] | [place] [address] | | | SERVICES, CORE | [address] | | | + + + + + documented in this encounter Visit Diagnoses Not on filedocumented in this encounter"
--- OUTSIDE RECORDS SUMMARY | ~2019-07-09 | XMS | Encounter Summary ---
Demographics + + + | Address | [address] | | | [place] [address] | + + + | Home Phone [...] Team Providers + +------+ + | Care Sdv Pilot/Navigator/Dds Operator Name | Role | Phone | [...] | MD | | | | | [facility] 4th Floor [address] | | | | | | [address] | | | | | | Mailcode: CH4S | | | | | | [facility] | | | | | | and Healing, | | | | | | Building 1,4th Floor | | | | | | [place], [place] | | | | | | [address] | | | | | | [phone] | | | +--------+ + + + [...] Zhane Pang - 04/27/2012 1:41 PM PDTOR fur feederJeanine ,(name) called the Pre [facility] on 04/27/12 (date) at 1pm(time) and requested delivery of the following inform ation to this patient: Surgery arrival date/ time:04/28/12 6am (date/time) Where to arrive AM of surgery [facility] (location) Information delivered to patient as requested. documented in this encounter Plan of Treatment Not on filedocumented as of this encounter Visit Diagnoses Not on filedocumented in this encounter"
--- OUTSIDE RECORDS SUMMARY | ~2019-07-09 | XMS | Encounter Summary ---
Demographics + + + | Address | [address] | | | [place] [address] | + + + | Home Phone [...] | Author | [facility] | | | and Eduardoana | + + + | Organization | [facility] | | | and Eduardoana | + + + | Address | Unknown | + + + | Phone | Unavailable | + + + Support + + + + + | Name | Relationship | Address | Phone | + + + + + | Poncho Oquendo | ECON | [address] | | | | | [facility] [place] | | | | | [address] | | + + + + + | Marta Upton | ECON | [place] | | | | | [address] | | + + + + + Care Team Providers + +------+ + | Care Animal Rehabilitator Name | Role | Phone | + [...] + + | 11/29/ | Anesthesia | [facility] | Roger Callaway MD | | | 2018 | [facility] | [address] | | | | | OPERATING ROOM [address] | [place] [address] | | | | | [address] | [phone] | | | | | [place], [place] | | | | | | [address] | Cass Harris, | | | | | [phone] | MD [address] | | | | | | [place] [address] | | | | | | [phone] | | | | | | | [...] 11/29/18 1550 by | | eral | [id number] catheter system; | Kim Denson RN | [...] VD | | | | | | [place] [address] | | | | | | [phone] | | | | | | | [...]
--- OUTSIDE RECORDS SUMMARY | ~2019-07-09 | XMS | Encounter Summary ---
Demographics + + + | Address | [address] | | | [place] [address] | + + + | Home Phone [...] Team Providers + +------+ + | Care Log Brander Name | Role | Phone | [...] 2015 | Event | [address] | [address] | | | | | [facility] | [address] | | | | | Hospital Admitting | [place], [place] | | | | | Desk Located on the | [address] | | | | | 9th floor | [phone] | | | | | [place], [place] | | | | | | [address] | Aurea Rowell RN | | | | | | [address] | | | | | | [address] | | | | | | [place], [place] | | | | | | [address] | | +--------+ + + + + [...] 10:51 | | | | | Starting [facility] 06/06/14 at 1051, | | AM PDT | | | | | Until [facility] 06/06/14 at 1106 | | | [...]
--- OUTSIDE RECORDS SUMMARY | ~2019-07-09 | XMS | Encounter Summary ---
Demographics + + + | Address | [address] | | | [place] [address] | + + + | Home Phone [...] | Author | [facility] | | | and Eduardoana | + + + | Organization | [facility] | | | and Eduardoana | + + + | Address | Unknown | + + + | Phone | Unavailable | + + + Support + + + + + | Name | Relationship | Address | Phone | + + + + + | Poncho Oquendo | ECON | [address] | | | | | [facility] [place] | | | | | [address] | | + + + + + | Marta Upton | ECON | [place] | | | | | [address] | | + + + + + Care Team Providers + +------+ + | Care Payroll Benefits Clerk Name | Role | Phone | [...] + + | 05/20/ | Telephone | [facility] | Reinaldo, | Care Coordination | | 2020 | | MED [facility] | Epifanio Soler MD [address] | | | | | ON[address]OGY CLIN[address] | [facility] | | | | | [facility] | [place] [address] | | | | | [place] [address] | [phone] | | | | | [phone] | | | +--------+ + + + [...] | | | | | [place] [address] | | | | | | [phone] | | | | | | | | +--------+---------+ + + + documented as of this encounter Visit Diagnoses Not on filedocumented in this encounter"
--- OUTSIDE RECORDS SUMMARY | ~2019-07-09 | XMS | Encounter Summary ---
Demographics + + + | Address | [address] | | | [place] [address] | + + + | Home Phone [...] | Author | [facility] | | | and Eduardoana | + + + | Organization | [facility] | | | and Eduardoana | + + + | Address | Unknown | + + + | Phone | Unavailable | + + + Support + + + + + | Name | Relationship | Address | Phone | + + + + + | Poncho Oquendo | ECON | [address] | | | | | [facility] [place] | | | | | [address] | | + + + + + | Marta Upton | ECON | [place] | | | | | [address] | | + + + + + Care Team Providers + +------+ + | Care Cotton Ginner Name | Role | Phone | + [...] + + | 04/29/ | Telephone | [facility] | Pedro Green, | Follow-up | | 2019 | | UROLOGY [address] | DO [address] | | | | | [address] | [place] [address] | | | | | [place], [place] | [phone] | | | | | [address] | | | | | | [phone] | | | +--------+ + + + [...] [address] | | | | | | [place] [address] | | | | | | [phone] | | | | | | | | +--------+---------+ + + + documented as of this encounter Visit Diagnoses Not on filedocumented in this encounter"
--- OUTSIDE RECORDS SUMMARY | ~2019-07-09 | XMS | Encounter Summary ---
Demographics + + + | Address | [address] | | | [place] [address] | + + + | Home Phone [...] | Author | [facility] | | | and Eduardoana | + + + | Organization | [facility] | | | and Eduardoana | + + + | Address | Unknown | + + + | Phone | Unavailable | + + + Support + + + + + | Name | Relationship | Address | Phone | + + + + + | Poncho Oquendo | ECON | [address] | | | | | [facility] [place] | | | | | [address] | | + + + + + | Marta Upton | ECON | [place] | | | | | [address] | | + + + + + Care Team Providers + +------+ + | Care Police Captain Precinct Name | Role | Phone | + [...] + + | 07/03/ | Telephone | [facility] | Reinaldo | Coordination Of Care | | 2020 | | MED [facility] | Epifanio Soler MD [address] | | | | | ONCOLOGY CLIN[address] | [facility] | | | | | [address] [facility] | [place] [address] | | | | | [place] [address] | [phone] | | | | | [phone] | | | +--------+ + + + [...] | | | | | [place] [address] | | | | | | [phone] | | | | | | | | +--------+---------+ + + + documented as of this encounter Visit Diagnoses Not on filedocumented in this encounter"
--- OUTSIDE RECORDS SUMMARY | ~2019-07-09 | XMS | Encounter Summary ---
Demographics + + + | Address | [address] | | | [place] [address] | + + + | Home Phone [...] Team Providers + +------+ + | Care Fusing Machine Feeder Name | Role | Phone [...] | Ultrasound | | 2012 | | [place] [facility] [address] | [address] | | | | | [address] | [address] | | | | | Mailcode: [place] | [place], [place] | | | | | for Health and | [address] | | | | | [facility] 2 | [phone] | | | | | [place], [place] | | | | | | [address] | | | | | | [phone] | | | +--------+ + + + [...]
--- OUTSIDE RECORDS SUMMARY | ~2019-07-09 | XMS | Encounter Summary ---
Demographics + + + | Address | [address] | | | [place] [address] | + + + | Home Phone [...] + | Author | [facility] | | | and Eduardoana | + + + | Organization | [facility] | | | and Eduardoana | + + + | Address | Unknown | + + + | Phone | Unavailable | + + + Support + + + + + | Name | Relationship | Address | Phone | + + + + + | Poncho Oquendo | ECON | [address] | | | | | [facility] [place], [place] | | | | | [address] | | + + + + + | Marta Upton | ECON | [place], [place] | | | | | [address] | | + + + + + Care Team Providers + +------+ + | Care Income Tax Consultant Name | Role | Phone | + +------+ + | No, Physician | PCP | Unavailable | + +------+ + Encounter Details +--------+ + + + + | Date | Type | Department | Care Team | Description | +--------+ + + + + | 04/26/ | Hospital | [facility] | Pedro Green, | | | 2019 | Encounter | REGIONAL SURGERY | DO [address] | | | | | CENTER INTRA OP | [place] [address] | | | | | [address] | [phone] | | | | | [place], [place] | | | | | | [address] | | | | | | [phone] | | | +--------+ + + + [...] [address] | | | | | | [place] [address] | | | | | | [phone] | | | | | | | [...]
--- OUTSIDE RECORDS SUMMARY | ~2019-07-09 | XMS | Encounter Summary ---
Demographics + + + | Address | [address] | | | [place] [address] | + + + | Home Phone [...] [facility] | | | and Eduardoana | + + + | Organization | [facility] | | | and Eduardoana | + + + | Address | Unknown | + + + | Phone | Unavailable | + + + Support + + + + + | Name | Relationship | Address | Phone | + + + + + | Poncho Oquendo | ECON | [address] | | | | | [place] | | | | | [address] | | + + + + + | Marta Upton | ECON | [place] | | | | | [address] | | + + + + + Care Team Providers + +------+ + | Care Benefits Specialist Recruiter Name | Role | Phone | [...] | | | ONCOLOGY CLINIC [address] | [facility] | | | | | W [facility] | [place] [address] | | | | | [place] [address] | [phone] | | | | | [phone] | | | +--------+ + + + [...] | | | | | [place] [address] | | | | | | [phone] | | | | | | | | +--------+---------+ + + + documented as of this encounter Visit Diagnoses Not on filedocumented in this encounter"
--- OUTSIDE RECORDS SUMMARY | ~2019-07-09 | XMS | Encounter Summary ---
Demographics + + + | Address | [address] | | | [place] [address] | + + + | Home Phone [...] Providers + +------+ + | Care Metal Alloy Scientist Name | Role | Phone | [...] | | 2014 | | [facility] | [place], [place] | | | | | [address] | [address] | | | | | [address] | | | | | | Alexis, [address] [facility] | | | | | | [place], [place] | | | | | | [address] | | | | | | [phone] | | | +--------+ + + + [...]
--- OUTSIDE RECORDS SUMMARY | ~2019-07-09 | XMS | Encounter Summary ---
Demographics + + + | Address | [address] | | | [place] [address] | [...] | Author | [facility] | | | and Eduardoana | + + + | Organization | [facility] | | | and Eduardoana | + + + | Address | Unknown | + + + | Phone | Unavailable | + + + Support + + + + + | Name | Relationship | Address | Phone | + + + + + | Poncho Oquendo | ECON | [address] | | | | | [facility] [place] | | | | | [address] | | + + + + + | Marta Upton | ECON | [place], [place] | | | | | [address] | | + + + + + Care Team Providers + +------+ + | Care Endoscopy Technican Name | Role | Phone | + +------+ + PCP | Unavailable | + +------+ + Encounter Details +--------+ + + + + | Date | Type | Department | Care Team | Description | +--------+ + + + + | 07/15/ | Hospital | [facility] | Dale Taylor MD | | | 2011 | Encounter | MED CTR XRAY [address] | [address] | | | | | [place] | [address] [place], | | | | | [place] [address] | [place] [address] | | | | | [phone] | [phone] | | | | | | | [...] [address] | | | | | | [place] [address] | | | | | | [phone] | | | | | | | [...] + + + | [facility] Diagnostic Imaging Department | [facility] | | [address] [facility] | [facility] | | MRI OF THE BRAIN EXTENDED [...] Transcribed Date/Time: 07/16/2011 12:57 | | | Scrap Dealer: <Electronically Signed by Mathieu Brasher, | | | > 07/16/11 7 | | + + + + + | Procedure Note | + + | Edmundo, Rad Conversion - 03/23/2013 5:27 PM [facility] | | Diagnostic Imaging Department [address] [place] [address] | | MRI OF THE BRAIN EXTENDED [...] 12:45 | |Transcribed Date/Time: 07/16/2011 12:57 | |Scrap Dealer: | |<Electronically Signed by Mathieu Brasher MD> [...]
--- OUTSIDE RECORDS SUMMARY | ~2019-07-09 | XMS | Encounter Summary ---
Demographics + + + | Address | [address] | | | [place] [address] | + + + | Home Phone [...] | Author | [facility] | | | and Eudardoana | + + + | Organization | [facility] | | | and Eduardoana | + + + | Address | Unknown | + + + | Phone | Unavailable | + + + Support + + + + + | Name | Relationship | Address | Phone | + + + + + | Poncho Oquendo | ECON | [address] | | | | | [place] | | | | | [address] | | + + + + + | Marta Upton | ECON | [place] | | | | | [address] | | + + + + + Care Team Providers + +------+ + | Care Rehab Therapist Name | Role | Phone | [...] 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, | [place]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 | MD [address] | [place], | | | | | (HCC) | [address] | [place] [address] | | | | | Procedures | [place], | Phone: | | | | | [place] | [place] [address] | [phone] | | | | | DIPHENHYDRAM | Phone: | Fax: | | | | | INE HCL | [phone] | [phone] | | | | | INJECTIO, 50 | Fax: | | | | | | [place] | [phone] | | | | | | ONDANSETRON [...] | | | | | | MCG [place] | | | | | | | INJECTION, | | | | | | | FAMOTIDINE, | | | | | | | 20 MG [place] | | | | | [...] + + | 05/20/ | Hospital | [facility] | Vladimir Robles, | Gallbladder cancer, | | 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 | MED CTR CHEMO | MD [address] | carcinoma (HCC) | | | | INFUSION [address] [place], | | | | | [place], | [place] [address] | | | | | [place] [address] | [phone] | | | | | [phone] | | | +--------+ + + + [...] stab le condition to follow up in [place] as scheduled. documented in this encounter Plan of Treatment +--------+---------+ + + + | Date | Type | Specialty | Care Team | Description | +--------+---------+ + + + | 09/17/ | Office | Urology | Pedro Green, | | | 2019 | Visit | | DO [address] | | | | | | [place] [address] | | | | | | [phone] | | | | | | | [...]
--- OUTSIDE RECORDS SUMMARY | ~2019-07-09 | XMS | Encounter Summary ---
Demographics + + + | Address | [address] | | | [place] [address] | + + + | Home Phone [...] Author | [facility] | | | and Eduardoana | + + + | Organization | [facility] | | | and Eduardoana | + + + | Address | Unknown | + + + | Phone | Unavailable | + + + Support + + + + + | Name | Relationship | Address | Phone | + + + + + | Poncho Oquendo | ECON | [address] | | | | | [place] | | | | | [address] | | + + + + + | Marta Upton | ECON | [place] | | | | | [address] | | + + + + + Care Team Providers + +------+ + | Care Air Quality Technician Name | Role | Phone | [...] + + | 04/22/ | Telephone | [facility] | Reinaldo | Results | | 2016 | | MED CTR MEDICAL | Epifanio Soler MD [address] | | | | | ON[address]Y CLIN[address] | [facility] | | | | | W [facility] | [place] [address] | | | | | [place] [address] | [phone] | | | | | [phone] | | | +--------+ + + + [...] [address] | | | | | | [facility] [address] | | | | | | [phone] | | | | | | | | +--------+---------+ + + + documented as of this encounter Visit Diagnoses Not on filedocumented in this encounter"
--- OUTSIDE RECORDS SUMMARY | ~2019-07-09 | XMS | Encounter Summary ---
Demographics + + + | Address | [address] | | | [place] [address] | + + + | Home Phone [...] Providers + +------+ + | Care Washer Meat Name | Role | Phone | + +------+ + | Tomasa Wagner | PCP | | + +------+ + Encounter Details +--------+ + + + + | Date | Type | Department | Care Team | Description | +--------+ + + + + | 06/09/ | Abstract | [facility] | Tai Stanton, | | | 2012 | | [place] [facility] [address] | [address] | | | | | [address] | [address] | | | | | Mailcode: Center | [place], [place] | | | | | [facility] and | [address] | | | | | Healing, [address] | [phone] | | | | | [place], [place] | | | | | | [address] | | | | | | [phone] | | | +--------+ + + + [...]
--- OUTSIDE RECORDS SUMMARY | ~2019-07-09 | XMS | Encounter Summary ---
Demographics + + + | Address | [address] | | | [place] [address] | + + + | Home Phone [...] + | Author | [facility] | | | and Eduardoana | + + + | Organization | [facility] | | | and Eduardoana | + + + | Address | Unknown | + + + | Phone | Unavailable | + + + Support + + + + + | Name | Relationship | Address | Phone | + + + + + | Poncho Oquendo | ECON | [address] | | | | | [place] | | | | | [address] | | + + + + + | Marta Upton | ECON | [place] | | | | | [address] | | + + + + + Care Team Providers + +------+ + | Care Perinatal Educator Name | Role | Phone | [...] [address] [place] | | | | | [place], | [place] [address] | | | | | [place] [address] | [phone] | | | | | [phone] | | | +--------+ + + + [...] [address] | | | | | | [place] [address] | | | | | | [phone] | | | | | | | [...] LIMITED RIGHT 03/05/2016 1:00 | | PMEXAM: [facility] RIGHT dated [...] At | + + + | EXAM: [facility] RIGHT dated [...]
--- OUTSIDE RECORDS SUMMARY | ~2019-07-09 | XMS | Encounter Summary ---
Demographics + + + | Address | [address] | | | [place] [address] | + + + | Home Phone [...] Providers + +------+ + | Care Tool Grinder Set Up Operator Gear Name | Role | Phone | + +------+ + PCP | Unavailable | + +------+ + Encounter Details +--------+ + + + + | Date | Type | Department | Care Team | Description | +--------+ + + + + | 03/22/ | Results | | Other, Faculty | | | 2003 | Only | | [phone] | | +--------+ + + + + [...] | | | | | please call [phone] | | | | | [phone].Rendering | | | | | | Diagnostician: [...] + + | Ordered by Yaw Marcelo GALVANIZER ZINC | | + + + + + + + + | Performing | Address | City/State/Zipcode | Phone Number | | Organization | | | | + + + + + | [facility] | [facility] | [place] [address] | | | [facility] | [address] | | | | | [address]VE[address] | | | + + + + + documented in this encounter Visit Diagnoses Not on filedocumented in this encounter"
--- OUTSIDE RECORDS SUMMARY | ~2019-07-09 | XMS | Encounter Summary ---
Demographics + + + | Address | [address] | | | [place] [address] | + + + | Home Phone [...] Author | [facility] | | | and Eduardoana | + + + | Organization | [facility] | | | and Eduardoana | + + + | Address | Unknown | + + + | Phone | Unavailable | + + + Support + + + + + | Name | Relationship | Address | Phone | + + + + + | Poncho Oquendo | ECON | [address] | | | | | [place] | | | | | [address] | | + + + + + | Marta Upton | ECON | [place] | | | | | [address] | | + + + + + Care Team Providers + +------+ + | Care Tire Room Supervisor Name | Role | Phone [...] + + | 05/30/ | Refill | [facility] | Reinaldo, | Medication Refill | | 2019 | | MED CTR MEDICAL | Epifanio Soler MD [address] | | | | | [address]OGY CL[address] | [address] [facility] | | | | | [address] | [place] [address] | | | | | [place] [address] | [phone] | | | | | [phone] | | | +--------+--------+ + + + [...] | Visit | | DO [address] | | | | | | [place] [address] | | | | | | [phone] | | | | | | | | +--------+---------+ + + + documented as of this encounter Visit Diagnoses + + | Diagnosis | + + | Gallbladder cancer, 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
--- OUTSIDE RECORDS SUMMARY | ~2019-07-09 | XMS | Encounter Summary ---
Demographics + + + | Address | [address] | | | [place] [address] | + + + | Home Phone [...] | Author | [facility] | | | and Eduardoana | + + + | Organization | [facility] | | | and Eduardoana | + + + | Address | Unknown | + + + | Phone | Unavailable | + + + Support + + + + + | Name | Relationship | Address | Phone | + + + + + | Poncho Oquendo | ECON | [address] | | | | | [facility], [place] | | | | | [address] | | + + + + + | Marta Upton | ECON | [place], [place] | | | | | [address] | | + + + + + Care Team Providers + +------+ + | Care Rn Documentation Specialist Name | Role | Phone | + +------+ + PCP | Unavailable | + +------+ + Encounter Details +--------+ + + + + | Date | Type | Department | Care Team | Description | +--------+ + + + + | 10/12/ | Hospital | [facility] | | | | 2012 - | Encounter | [facility] | | | | | | CENTER [address] | | | | 10/14/ | | [place] | | | | 2012 | | [address] | | | | | | [phone] | | | +--------+ + + + [...] [address] | | | | | | [place] [address] | | | | | | [phone] | | | | | | | [...] + | [facility] | [address] | [place] | [phone] | | [facility] | | [address] | | | - LABORATORY | | | | + + + + + | [facility] | [address] | [place] | | | [facility] | | [id number] [place] [address] | | | - LABORATORY | | [...] | | | | [address], [place], [place] | | | | | | [address] CLIA: | | | | | | [id number] | | | | + + + + + + + + | Specimen | + + | | + + + + + + + | Performing | Address | City/State/Zipcode | Phone Number | | Organization | | | | + + + + + | [facility] | [address] | [place] | [phone] | | [facility] | | [address] | | | - LABORATORY | | | | + + + + + | [facility] | [address] | [place], [place] | | | [facility] | | [id number] | | | - LABORATORY [...] + | [facility] | [address] | [place], [place] | [phone] | | [facility] | | [address] | | | - LABORATORY | | | | + + + + + | [facility] | [address] | [place] | | | [facility] | | [address], [facility] | | | [...] + | [facility] | [address] | [place] | [phone] | | [facility] | | [address] | | | - LABORATORY | | | | + + + + + | [facility] | [address] | [place] | | | [facility] | | [address] | | | - LABORATORY [...] | | | DIFFERENTIA | | | [facility] | | | L ? [...] + | [facility] | [address] | [place], [place] | [phone] | | [facility] | | [address] | | | - LABORATORY | | | | + + + + + | [facility] | [address] | [place], [place] | | | [facility] | | [address], [facility] | | | [...] [facility] | | | | Fixyaaur immunoassay | | MEDICAL | | | [...] | | | | [address] [place], [place] | | | | | | [address] CLIA: | | | | | | [id number] | | | | + + + + + + + + | Specimen | + + | | + + + + + + + | Performing | Address | City/State/Zipcode | Phone Number | | Organization | | | | + + + + + | [facility] | [address] | [place], [place] | [phone] | | [facility] | | [address] | | | - LABORATORY | | | | + + + + + | [facility] | [address] | [place], [place] | | | [facility] | | [address], [facility] | | | [...] + | [facility] | [address] | [place] | [phone] | | [facility] | | [address] | | | - LABORATORY | | | | + + + + + | [facility] | [address] | [place] | | | [facility] | | [address] | | | - LABORATORY [...] + | [facility] | [address] | [place], [place] | [phone] | | [facility] | | [address] | | | - LABORATORY | | | | + + + + + | [facility] | [address] | [place], [place] | | | [facility] | | [address], [facility] | | | [...] + | [facility] | [address] | [place], [place] | [phone] | | [facility] | | [address] | | | - LABORATORY | | | | + + + + + | [facility] | [address] | [place], [place] | | | [facility] | | [address] [place] [place] [address] | | | - LABORATORY | | [...] Age[place] | | | | | | [address] CLIA: | | | | | | [id number] | | | | + + + + + + + + | Specimen | + + | | + + + + + + + | Performing | Address | City/State/Zipcode | Phone Number | | Organization | | | | + + + + + | [facility] | [address] | [place], [place] | [phone] | | [facility] | | [address] | | | - LABORATORY | | | | + + + + + | [facility] | [address] | [place] | | | [facility] | | [address] [place] [address] | | | - LABORATORY | | [...] + | [facility] | [address] | [place] | [phone] | | [facility] | | [address] | | | - LABORATORY | | | | + + + + + | [facility] | [address] | [place] | | | [facility] | | [address], [facility] | | | [...] + | [facility] | [address] | [place], [place] | [phone] | | [facility] | | [address] | | | - LABORATORY | | | | + + + + + | [facility] | [address] | [place], [place] | | | [facility] | | [address], [facility] | | | [...] + | [facility] | [address] | [place], [place] | [phone] | | [facility] | | [address] | | | - LABORATORY | | | | + + + + + | [facility] | [address] | [place], [place] | | | [facility] | | [address] [place] [address] | | | - LABORATORY | | [...] [facility] | | | | Fixyaaur immunoassay | | MEDICAL | | | [...] [place] | | | | | | [address] CLIA: | | | | | | [id number] | | | | + + + + + + + + | Specimen | + + | | + + + + + + + | Performing | Address | City/State/Zipcode | Phone Number | | Organization | | | | + + + + + | [facility] | [address] | [place], [place] | [phone] | | [facility] | | [address] | | | - LABORATORY | | | | + + + + + | [facility] | [address] | [place], [place] | | | [facility] | | [address], [facility] | | | [...] [address] | [place] | [phone] | | [facility] | | [address] | | | - LABORATORY | | | | + + + + + | [facility] | [address] | [place], [place] | | | [facility] | | [address], [facility] | | | [...] [address] | [place] | [phone] | | [facility] | | [address] | | | - LABORATORY | | | | + + + + + | [facility] | [address] | [place] | | | [facility] | | [address] [place] [address] | | | - LABORATORY | | | | + + + + + documented in this encounter Visit Diagnoses Not on filedocumented in this encounter"
--- OUTSIDE RECORDS SUMMARY | ~2019-07-09 | XMS | Encounter Summary ---
Demographics + + + | Address | [address] | | | [place] [address] | + + + | Home Phone [...] + | Author | [facility] | | | and Eduardoana | + + + | Organization | [facility] | | | and Eduardoana | + + + | Address | Unknown | + + + | Phone | Unavailable | + + + Support + + + + + | Name | Relationship | Address | Phone | + + + + + | Poncho Oquendo | ECON | [address] | | | | | [facility] [place] | | | | | [address] | | + + + + + | Marta Upton | ECON | [place] | | | | | [address] | | + + + + + Care Team Providers + +------+ + | Care Machine Cell Tuber Name | Role | Phone | + [...] 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, | [address]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 | MD [address] | [place], | | | | | (HCC) | [address] | [place] [address] | | | | | Procedures | [place], | Phone: | | | | | [place] N[place] | [place] [address] | [phone] | | | | | SALINE | Phone: | Fax: | | | | | SOLUTION | [phone] | [phone] | | | | | INFUS, 500 | Fax: | | | | | | ML [place] | [phone] | | | | | | NORMAL | | | | | | | SALINE | | | | | | | SOLUTION | | | | | | | INFUS, 250 | | | | | | | ML [place] | | | | | | | STERILE | | | | | | | WATER/SALINE | | | | | | | , 10 ML [place] | | | | | | | CHEMOTHER, | | | | | | | IV PUSH,EA | | | | | | | ADD DRUG [place] | | | | | | | CHEMOTHER, | | | | | | | IV INFUSION, | | | | | | | 1 HR [place] | | | | | | | CHEMOTHER, | | | | | | | IV INFUSION, | | | | | | | EA HR [place] | | | | | | | CHEMOTHER,NO | | | | | | | N-HORMONE | | | | | | | ANTI-NEOPL, | | | | | | | SUB-Q/IM [place] | | | | | | | CHEMOTHER | | | | | | | HORMON | | | | | | | ANTINEOPL | | | | | | | SUB-Q/IM [place] | | | | | | | INJECTION, | | | | | | | FAMOTIDINE, | | | | | | | 20 MG [place] | | | | | | | DIPHENHYDRAM | | | | | | | INE HCL | | | | | | | INJECTIO, 50 | | | | | | | MG [place] | | | | | | | INJ., | | | | | | | APREPITANT, | | | | | | | 1 MG OR | | | | | | | ORAL | | | | | | | DEXAMETHASON | | | | | | | E, .25 MG | | | | | | | OR LORAZEPAM | | | | | | | INJECTION, | | | | | | | 2 MG OR | | | | | | | HYDROMORPHON | | | | | | | E 250 MG OR | | | | | | | CARBOPLATIN | | | | | | | INJECTION, | | | | | | | 50 MG OR IN | | | | | | | GEMCITABINE | | | | | | | HCL NOS | | | | | | | 200MG [place] | | | | | | | ADRENALIN | | | | | | | EPINEPHRINE | | | | | | | INJECT, .1 | | | | | | | MG [place] | | | | | | | METHYLPREDNI | | | | | | | SOLONE | | | | | | | INJECTION, | | | | | | | 125 MG [place] | | | | | | | ALBUTEROL | | | | | | | COMP UNIT, 1 | | | | | | | MG [place] | | | | | | [...] + + | 07/04/ | Hospital | [facility] | Reinaldo, | Gallbladder cancer, | | 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 | Epifanio Soler MD [address] | carcinoma (HCC) | | | | INFUSION [address] | [address] [place] | (Primary Dx) | | | | [place], | [place] [address] | | | | | [place] [address] | [phone] | | | | | [phone] | | | +--------+ + + + [...] [address] | | | | | | [place] [address] | | | | | | [phone] | | | | | | | [...] | | | over 30 Minutes, ONCE, [facility] | | | | | | [...] | | | | | Care, Starting [facility] 07/05/19 at | | | | [...] | | | | | Pain, Starting [facility] 07/05/19 at | | | | [...] | | | | | Minutes, ONCE, [facility] 07/05/19 at | | | | | | | 0945, For 1 dose | | | | | | + +---------+ +------+--------+---+ +---+---+ | | | +---+---+ documented in this encounter"
--- OUTSIDE RECORDS SUMMARY | ~2019-07-09 | XMS | Encounter Summary ---
Demographics + + + | Address | [address] | | | [place] [address] | + + + | Home Phone [...] | Author | [facility] | | | and Eduardoana | + + + | Organization | [facility] | | | and Eduardoana | + + + | Address | Unknown | + + + | Phone | Unavailable | + + + Support + + + + + | Name | Relationship | Address | Phone | + + + + + | Poncho Oquendo | ECON | [address] | | | | | [place] | | | | | [address] | | + + + + + | Marta Upton | ECON | [place] | | | | | [address] | | + + + + + Care Team Providers + +------+ + | Care Beef Grader Name | Role | Phone | [...] 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, | [place]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 | MD [address] | [place], | | | | | (HCC) | [address] | [place] [address] | | | | | Procedures | [place], | Phone: | | | | | [place] | [place] [address] | [phone] | | | | | DIPHENHYDRAM | Phone: | Fax: | | | | | INE HCL | [phone] | [phone] | | | | | INJECTIO, 50 | Fax: | | | | | | MG [place] | [phone] | | | | | | ONDANSETRON | | | | | | | HCL | | | | | | | INJECTION, 1 | | | | | | | MG [place] | | | | | | | DEXAMETHASON | | | | | | | E SODIUM | | | | | | | PHOS, 1 MG | | | | | | | [place] | | | | | | | FOSAPREPITAN | | | | | | | T INJECTION, | | | | | | | 1 MG [place] | | | | | | | LORAZEPAM | | | | | | | INJECTION, 2 | | | | | | | MG [place] | | | | | | | GEMCITABINE | | | | | | | HCL | | | | | | | INJECTION, | | | | | | | 200 MG [place] | | | | | | | CISPLATIN 10 | | | | | | | MG | | | | | | | INJECTION | | | | | | | [place] | | | | | | | METHYLPREDNI | | | | | | | SOLONE | | | | | | | INJECTION, | | | | | | | 125 MG [place] | | | | | | | ADRENALIN | | | | | | | EPINEPHRINE | | | | | | | INJECT, .1 | | | | | | | MG [place] | | | | | | | FILGASTIM | | | | | | | (ZARXIO) 300 | | | | | | | MCG/0.5ML | | | | | | | SOSY, PER 1 | | | | | | | MCG [place] | | | | | | | INJECTION, | | | | | | | FAMOTIDINE, | | | | | | | 20 MG [place] | | | | | | | NORMAL | | | | | | | SALINE | | | | | | | SOLUTION | | | | | | | INFUS, 500 | | | | | | | ML [place] | | | | | | | NORMAL | | | | | | | SALINE | | | | | | | SOLUTION | | | | | | | INFUS, 250 | | | | | | | ML [place] | | | | | | | STERILE | | | | | | | WATER/SALINE | | | | | | | , 10 ML [place] | | | | | | | CHEMOTHER, | | | | | | | IV PUSH,EA | | | | | | | ADD DRUG [place] | | | | | | | CHEMOTHER, | | | | | | | IV INFUSION, | | | | | | | 1 HR [place] | | | | | | | CHEMOTHER, | | | | | | | IV INFUSION, | | | | | | | EA HR [place] | | | | | | | CHEMOTHER,NO | | | | | | | N-HORMONE | | | | | | | ANTI-NEOPL, | | | | | | | SUB-Q/IM [place] | | | | | | | [...] + + | 05/20/ | Hospital | [facility] | Vladimir Robles, | Gallbladder cancer, | | 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 | MED CTR CHEMO | MD [address] | carcinoma (HCC) | | | | INFUSION [address] [place], | | | | | [place], | [place] [address] | | | | | [place] [address] | [phone] | | | | | [phone] | | | +--------+ + + + [...] stab le condition to follow up in [place] as scheduled. documented in this encounter Plan of Treatment +--------+---------+ + + + | Date | Type | Specialty | Care Team | Description | +--------+---------+ + + + | 09/17/ | Office | Urology | Pedro Green, | | | 2019 | Visit | | DO [address] | | | | | | [place] [address] | | | | | | [phone] | | | | | | | [...]
--- OUTSIDE RECORDS SUMMARY | ~2019-07-09 | XMS | Encounter Summary ---
Demographics + + + | Address | [address] | | | [place] [address] | + + + | Home Phone [...] | Author | [facility] | | | and Eduardoana | + + + | Organization | [facility] | | | and Eduardoana | + + + | Address | Unknown | + + + | Phone | Unavailable | + + + Support + + + + + | Name | Relationship | Address | Phone | + + + + + | Poncho Oquendo | ECON | [address] | | | | | [facility] [place] | | | | | [address] | | + + + + + | Marta Upton | ECON | [place], [place] | | | | | [address] | | + + + + + Care Team Providers + +------+ + | Care Health Equipment Servicer Name | Role | Phone | + +------+ + PCP | Unavailable | + +------+ + Encounter Details +--------+ + + + + | Date | Type | Department | Care Team | Description | +--------+ + + + + | 10/19/ | Hospital | [facility] | | | | 2012 - | Encounter | MED CTR CANCER | | | | | | CENTER [address] | | | | 11/13/ | | [place] | | | | 2012 | | [address] | | | | | | [phone] | | | +--------+ + + + [...] [address] | | | | | | [place] [address] | | | | | | [phone] | | | | | | | [...] + | [facility] | [address] | [place] | [phone] | | [facility] | | [address] | | | - LABORATORY | | | | + + + + + | [facility] | [address] | [place] | | | [facility] | | [address] | | | - LABORATORY [...] | | (formerly Mahad) Advia | | [facility] | | | | Centaur immunoassay | [...] | | | | [address], [place], [place] | | | | | | [address] CLIA: | | | | | | [id number] | | | | + + + + + + + + | Specimen | + + | | + + + + + + + | Performing | Address | City/State/Zipcode | Phone Number | | Organization | | | | + + + + + | [facility] | [address] | [place] | [phone] | | [facility] | | [address] | | | - LABORATORY | | | | + + + + + | [facility] | [address] | [place] | | | [facility] | | [address], [facility] | | | - LABORATORY | [...] + | [facility] | [address] | [place], [place] | [phone] | | [facility] | | [address] | | | - LABORATORY | | | | + + + + + | [facility] | [address] | [place] | | | [facility] | | [id number] [place] [address] | | | - LABORATORY | | [...] [address] | [place] | [phone] | | [facility] | | [address] | | | - LABORATORY | | | | + + + + + | [facility] | [address] | [place] | | | [facility] | | [address] | | | - LABORATORY | | | | + + + + + documented in this encounter Visit Diagnoses Not on filedocumented in this encounter"
--- OUTSIDE RECORDS SUMMARY | ~2019-07-09 | XMS | Encounter Summary ---
Demographics + + + | Address | [address] | | | [place] [address] | + + + | Home Phone [...] | Author | [facility] | | | and Eduardoana | + + + | Organization | [facility] | | | and Eduardoana | + + + | Address | Unknown | + + + | Phone | Unavailable | + + + Support + + + + + | Name | Relationship | Address | Phone | + + + + + | Poncho Oquendo | ECON | [address] | | | | | [place] | | | | | [address] | | + + + + + | Marta Upton | ECON | [place] | | | | | [address] | | + + + + + Care Team Providers + +------+ + | Care Lacquer Spray Booth Operator Name | Role | Phone | [...] 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 | Vladimir Robles, | Gallbladder cancer, | | 2017 | Encounter | MED CTR CHEMO | MD [address] | carcinoma (HCC) | | | | INFUSION [address] [place], | | | | | [place], | [place] [address] | | | | | [place] [address] | [phone] | | | | | [phone] | | | +--------+ + + + [...] [address] | | | | | | [place] [address] | | | | | | [phone] | | | | | | | [...] the | | | | PDT | ([facility]) | results section. | + +--------+ [...] + | [facility] | [address] | [place] | [phone] | | [facility] | | [address] | | | - LABORATORY | | [...] [place] | | | | | | [address] | | | | + + + + + + + + | Specimen | + + | Blood | + + + + + + + | Performing | Address | City/State/Zipcode | Phone Number | | Organization | | | | + + + + + | [facility] | [address] | [place] [address] | [phone] | + + + + + Lactate [...] [address] | [place] | [phone] | | [facility] | | [address] | | | - LABORATORY | | [...] | 0.95 | 0.60 - 1.30 | SISTERS | | | | | mg/dL | [facility] | | | | | | [facility]ICAL | | | | | | [facility] - | | | | | | LABORATORY | | + + + + + + | eGFR if not | >60Comment: GLOMERULAR | >=60 | [facility] | | | | FILTRATION | mL/min/1.73m2 | [facility] | | | AL[place]IAN | RATE,ESTIMATED | | MEDICAL | | | | mL/min/1.82r3Nrum than | | CENTER - | | [...] [address] | [place] | [phone] | | [facility] | | [address] | | | - LABORATORY | | [...] [address] | [place] | [phone] | | [facility] | | [address] | | | - LABORATORY | | [...] [address] | [place] | [phone] | | [facility] | | [address] | | | - LABORATORY | | [...]
--- OUTSIDE RECORDS SUMMARY | ~2019-07-09 | XMS | Encounter Summary ---
Demographics + + + | Address | [address] | | | [place] [address] | + + + | Home Phone [...] Team Providers + +------+ + | Care Pharmaceutical Compounding Supervisor Name | Role | Phone | + +------+ + PCP | Unavailable | + +------+ + Encounter Details +--------+ + + + + | Date | Type | Department | Care Team | Description | +--------+ + + + + | 03/22/ | Results | | Other, Faculty | | | 2003 | Only | | [phone] | | +--------+ + + + + [...] | | | | | please call ([phone] | | | | | | [phone].Rendering | | | | | | Diagnostician: [...] + + | Ordered by Yaw Marcelo HOG COOLER | | + + + + + + + + | Performing | Address | City/State/Zipcode | Phone Number | | Organization | | | | + + + + + | [facility] | [facility] | [place] [address] | | | [facility] | [address] | | | | | [address]VE[address] | | | + + + + + documented in this encounter Visit Diagnoses Not on filedocumented in this encounter"
--- OUTSIDE RECORDS SUMMARY | ~2019-07-09 | XMS | Encounter Summary ---
Demographics + + + | Address | [address] | | | [place] [address] | + + + | Home Phone [...] Providers + +------+ + | Care Architectural Administrative Assistant Name | Role | Phone [...] | | | Stay [address] | [place], [place] | testing; Pelvic | | | | [address] | [address] | mass; Other | | | | Mailcode: [id number] | [phone] | specified | | | | [facility] | | pre-operative | | | | [address] [place], [place] | | examination | | | | [address] | | | | | | [phone] | | | +--------+---------+ + + + [...] or walk. Surgery check-in location: Admitting - [facility], ninth floor [employer] Surgery Check in Time: The Preoperative Medicine [...] after office hours, call the [facility] electric drill operator at [phone] and ask them to page him or [...] Date RATE 65 04/27/2012 ATRIALRATE 65 04/27/2012 MI 142 04/27/2012 QRS 86 04/27/2012 QT 398 [...] to this patient's care. RACHAEL NGUYEN MD RESIZER OPERATORAIR TRAFFIC INSTRUCTOR DEPARTMENT OF MEDICINE DIVISION OF HOSPITAL MEDICINE PREOPERATIVE MEDICINE MANAGER ESTATE CAREER ORIENTATION TEACHER [address] [place] [address] [phone] documented in thi s encounter Plan of Treatment Not on filedocumented as of this encounter Procedures + +--------+ + + + | Procedure Name | Priori | Date/Time | Associated Diagnosis | Comments | | | ty | | | | + +--------+ + + + | MI COLLECTION VENOUS | Routin | 05/28/2014 | [...] [facility] | [address] | [place] [address] | | | SERVICES, | [address] [...] [facility] | [address] | [place] [address] | | | SERVICES, | [address] [...] [facility] | [address] | [place] [address] | | | SAM ALONSO | NEAL [...] [facility] | [address] | [place] [address] | | | SAM ALONSO | NEAL [...] [facility] | [address] | [place] [address] | | | SAM ALONSO | NEAL [...] | | | LABORATORY | | | PRYDEINIG | | | SERVICES, | | | [...] | + + + + + | [employer] | [address] | [place] [address] | | | SERVICES, CORE | [address] [...] [facility] | [address] | [place], [place] | | | DG POINT OF CARE | [place] [address] | [address] | | | TESTS | | | [...]
--- OUTSIDE RECORDS SUMMARY | ~2019-07-09 | XMS | Encounter Summary ---
Demographics + + + | Address | [address] | | | [place] [address] | + + + | Home Phone [...] Providers + +------+ + | Care Mechanical Field Engineer Name | Role | Phone | [...] | Center at [facility] [address] | [address] [facility] | Review (US abd ) | | | | Erickson Borges | Surendra Carreon | | | | | Mailcode: [place] | [place], [place] | | | | | [facility] and | [address] | | | | | [facility] 2 | [phone] | | | | | [place], [place] | | | | | | [address] | | | | | | [phone] | | | +--------+ + + + [...]
--- OUTSIDE RECORDS SUMMARY | ~2019-07-09 | XMS | Encounter Summary ---
Demographics + + + | Address | [address] | | | [place] [address] | + + + | Home Phone [...] | Author | [facility] | | | and Eduardoana | + + + | Organization | [facility] | | | and Eduardoana | + + + | Address | Unknown | + + + | Phone | Unavailable | + + + Support + + + + + | Name | Relationship | Address | Phone | + + + + + | Poncho Oquendo | ECON | [address] | | | | | [place] | | | | | [address] | | + + + + + | Marta Upton | ECON | [place] | | | | | [address] | | + + + + + Care Team Providers + +------+ + | Care Informatics Spec Name | Role | Phone | + +------+ + | Valeriy Carmona DO | PCP | | + +------+ + Encounter Details +--------+ + + + + | Date | Type | Department | Care Team | Description | +--------+ + + + + | 03/05/ | Hospital | [facility] | Reinaldo, | Mass of breast, | | 2017 | Encounter | MED CTR ULTRASOUND | Epifanio Soler MD [address] | right | | | | [address] [place] | [address] [place] | | | | | [place], [place] | [place] [address] | | | | | [address] | [phone] | | | | | [phone] | | | | | | | [...] [address] | | | | | | [place] [address] | | | | | | [phone] | | | | | | | [...] BREAST LIMITED RIGHT 03/05/2016 1:00 PM EXAM: [facility] | [facility] | | [...] LIMITED RIGHT 03/05/2016 1:00 | | PMEXAM: [facility] DIAGNOSTIC RIGHT dated 03/05/2016 12:50 [...]
--- OUTSIDE RECORDS SUMMARY | ~2019-07-09 | XMS | Encounter Summary ---
Demographics + + + | Address | [address] | | | [place] [address] | + + + | Home Phone [...] | Author | [facility] | | | and Eduardoana | + + + | Organization | [facility] | | | and Edaurdoana | + + + | Address | Unknown | + + + | Phone | Unavailable | + + + Support + + + + + | Name | Relationship | Address | Phone | + + + + + | Poncho Oquendo | ECON | [address] | | | | | [facility] [place] | | | | | [address] | | + + + + + | Marta Upton | ECON | [place], [place] | | | | | [address] | | + + + + + Care Team Providers + +------+ + | Care Radiology Interventional Physician Name | Role | Phone | + +------+ + PCP | Unavailable | + +------+ + Encounter Details +--------+ + + + + | Date | Type | Department | Care Team | Description | +--------+ + + + + | 09/01/ | Hospital | [facility] | | | | 2012 - | Encounter | MED CTR XRAY [address] | | | | | | [address] | | | | 09/13/ | | [place] [address] | | | | 2012 | | [phone] | | | +--------+ + + + [...] [address] | | | | | | [place] [address] | | | | | | [phone] | | | | | | | [...] + | [facility] | [address] | [place], [place] | [phone] | | [facility] | | [address] | | | - LABORATORY | | | | + + + + + | [facility] | [address] | [place], [place] | | | [facility] | | [address], [facility] | | | - LABORATORY | [...] | | | | | | [address], [place], [place] | | | | | | [address] CLIA: | | | | | | [id number] | | | | + + + + + + + + | Specimen | + + | | + + + + + + + | Performing | Address | City/State/Zipcode | Phone Number | | Organization | | | | + + + + + | [facility] | [address] | [place] | [phone] | | [facility] | | [address] | | | - LABORATORY | | | | + + + + + | [facility] | [address] | [place], [place] | | | [facility] | | [address] | | | - LABORATORY [...] + | [facility] | [address] | [place], [place] | [phone] | | [facility] | | [address] | | | - LABORATORY | | | | + + + + + | [facility] | [address] | [place] | | | [facility] | | [id number] [place] [address] | | | - LABORATORY | | [...] [address] | [place] | [phone] | | [facility] | | [address] | | | - LABORATORY | | | | + + + + + | [facility] | [address] | [place] | | | [facility] | | [address] | | | - LABORATORY [...] + | [facility] | [address] | [place] | [phone] | | [facility] | | [address] | | | - LABORATORY | | | | + + + + + | [facility] | [address] | [place] | | | [facility] | | [address] | | | - LABORATORY [...] | | | | [address], [place], [place] | | | | | | [address] CLIA: | | | | | | [id number] | | | | + + + + + + + + | Specimen | + + | | + + + + + + + | Performing | Address | City/State/Zipcode | Phone Number | | Organization | | | | + + + + + | [facility] | [address] | [place], [place] | [phone] | | [facility] | | [address] | | | - LABORATORY | | | | + + + + + | [facility] | [address] | [place] | | | [facility] | | [address] | | | - LABORATORY [...] + | [facility] | [address] | [place], [place] | [phone] | | [facility] | | [address] | | | - LABORATORY | | | | + + + + + | [facility] | [address] | [place], [place] | | | [facility] | | [address], [facility] | | | - LABORATORY | [...] + | [facility] | [address] | [place] | [phone] | | [facility] | | [address] | | | - LABORATORY | | | | + + + + + | [facility] | [address] | [place] | | | [facility] | | [address] | | | - LABORATORY | | | | + + + + + documented in this encounter Visit Diagnoses Not on filedocumented in this encounter"
--- OUTSIDE RECORDS SUMMARY | ~2019-07-09 | XMS | Encounter Summary ---
Demographics + + + | Address | [address] | | | [place] [address] | + + + | Home Phone [...] Team Providers + +------+ + | Care Gold Miner Blasting Name | Role | Phone [...] | | | | | | [place] | | | | | | [address] | | | +--------+ + + + [...] + + documented in this encounter Results [facility] SOLID TUMOR PANEL (03/23/2016) + + + + + + | Component | Value | Ref Range | Performed | Pathologist | | | | | At | Signature | + + + + + + | [facility] | | [facility] | | [...] | | | | | | NTRK1 [id number] | | | | | | CDKN2A FGF18 | | | | | | KRAS NTRK2 | | | | | | [id number] CHEK1 | | | | | | FGF19 MAP2K1 | | | | | | NTRK3 QIE37XFQI | | | | | | CHEK2 FGF3 | | | | | | MAP2K2 PALB2 | | | | | | GBN3AUN CTNNB1 | | | | | | FGF4 MAP2K4 | | | | | | ABRH6FQ0 GFYF3FM | | | | | | DDR2 FGFR1 MAPK1 | | | | | | PDGFRA | | | | | | VA2LQIR DDX11 | | | | | | FGFR2 MDC1 PIK3CA | | | | | | NDGNXPW5T EGFR | | | | | | FGFR3 MDM2 PIK3CB | | | | | | RICTORATM ERBB2 | | | | | | FGFR4 MDM4 | | | | | | PIK3R1 PQT3RBU | | | | | | ERBB3 GNA11 | | | | | | MET PMS1 IVL2UJL6 | | | | | | ERBB4 GNAQ MLH1 | | | | | | PMS2 RPTORBARD1 | | | | | | ERCC2 GNAS MLH3 | | | | | | POLE [id number] ERCC5 | | | | | | PBWQ0H5V MRE11A | | | | | | VVH0V4S GHKT4PRPI8 | | | | | | ESR1 HRAS MSH2 | | | | | | PPP6C [id number] | | | | | | LSB367G IDH1 | | | | | | MSH6 PTCH1 | | | | | | [id number] FANCA | | | | | | IDH2 MTOR PTEN | | | | | | [id number] FANCC | | | | | | IDO1 MUTYH | | | | | | RAC1 [id number] | | | | | | FANCD2 IDO2 MYC | | | | | | RAD50 RLP4OSTF3 | | | | | | FANCE INPP4B | | | | | | NBN RAD51 | | | | | | [id number] FANCF | | | | | | JAK2 NF1 | | | | | | [id number] | | | | | | FANCG [...] | | | | | | MSH2 [id number] | | | | | | c.980C>T hg19 chr2 | | | | | | [id number] C | | | | | | TTP53 [id number] | | | | | | c.743G>A hg19 chr17 | | | | | | [id number] | | | | | | C [...] # | | | | | | [id number]. It has not | | | | [...] | | | | | determined bythe [facility] | | | | | | Carter [...] | | | | | | [facility] | | | | | | [facility]atories | | | | | | are fully licensed by | | | | | | the state of [place] | | | | | | under CLIA and | | | | | | areaccredited by [place] | | | | | | of [place] | | | | | | Pathologists [...] + + + + | [facility] | [address] | [place] [address] | | | DIAGNOSTIC | [address] | | | | LABORATORIES | | | | + + + + + documented in this encounter Visit Diagnoses Not on filedocumented in this encounter"
--- OUTSIDE RECORDS SUMMARY | ~2019-07-09 | XMS | Encounter Summary ---
Demographics + + + | Address | [address] | | | [place] [address] | + + + | Home Phone [...] Author | [facility] | | | and Eduardoana | + + + | Organization | [facility] | | | and Eduardoana | + + + | Address | Unknown | + + + | Phone | Unavailable | + + + Support + + + + + | Name | Relationship | Address | Phone | + + + + + | Poncho Oquendo | ECON | [address] | | | | | [place] | | | | | [address] | | + + + + + | Marta Upton | ECON | [place] | | | | | [address] | | + + + + + Care Team Providers + +------+ + | Care Metal Casket Maker Name | Role | Phone | [...] | Procedures | [address] | [place] [address] | | | | | [place] OFFICE | OBED, | Phone: | | | | | OUTPATIENT | [place] [address] | [phone] | | | | | VISIT 25 | | Fax: | | | | | MINUTES | | [phone] | +--------+--------+ + + + + Encounter Details +--------+ + + + + | Date | Type | Department | Care Team | Description | +--------+ + + + + | 02/02/ | Hospital | [facility] | Ángela Glass | Gallbladder cancer, | | 2017 | Encounter | MED CTR MEDICAL | J, PharmD [address] | carcinoma (HCC) | | | | [facility]COLOGY CLINIC [address] [place] | (Primary Dx) | | | | [address] [place] | [place] [address] | | | | | [place] [address] | [phone] | | | | | [phone] | | | +--------+ + + + [...] original. Clinical Oncology Pharmacy Services Progress Note [facility] Pt. Name/Age/: Aura Upton 56 y.o. 1960 CSN: [id number] Date of service: 02/02/2017 Provider: Ángela Glass PharmD Identifying Statement: Aura Upton is a 56 y.o. female from [address] [place] [address], The encounter diagnosis was Gallbladder cancer, carcinoma [...] up with Dr [facility] in [place], [place]. 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
--- OUTSIDE RECORDS SUMMARY | ~2019-07-09 | XMS | Encounter Summary ---
Demographics + + + | Address | [address] | | | [place] [address] | + + + | Home Phone [...] | Author | [facility] | | | and Eduardoana | + + + | Organization | [facility] | | | and Eduardoana | + + + | Address | Unknown | + + + | Phone | Unavailable | + + + Support + + + + + | Name | Relationship | Address | Phone | + + + + + | Poncho Oquendo | ECON | [address] | | | | | [place] | | | | | [address] | | + + + + + | Marta Upton | ECON | [place] | | | | | [address] | | + + + + + Care Team Providers + +------+ + | Care Reading Aide Name | Role | Phone | [...] | | | | | Procedures | [address] | [place] [address] | | | | | [place] OFFICE | Phone: | Phone: | | | | | OUTPATIENT | [phone] | [phone] | | | | | VISIT 25 | Fax: | Fax: | | | | | MINUTES | [phone] | [phone] | +--------+--------+ + + + + Encounter Details +--------+ + + + + | Date | Type | Department | Care Team | Description | +--------+ + + + + | 08/06/ | Hospital | [facility] | Vladimir Robles, | Gallbladder cancer, | | 2017 | Encounter | MED CTR MEDICAL | [address] | carcinoma (HCC) | | | | ONCOLOGY CLINIC [address] [place] | (Primary Dx) | | | | [address] [place] | [place] [address] | | | | | [place] [address] | [phone] | | | | | [phone] | | | +--------+ + + + [...] f rom the original. Hematology-Oncology Progress Note [facility] Pt. Name/Age/: Aura Upton 55 y.o. 1960 CSN: [id number] Date of service: 08/06/2016 Provider: Vladimir Robles [...] scheduled. 1. Day 8, cycle #6 of gemcitabine/cis-st. croix. 2. Neupogen, Aranesp in [place]. 3. Follow-up scheduled with Dr. Najera on [...] Last chemotherapy was a week ago at [facility]. My chart: active. Medications: Current Outpatient Prescriptions [...] this chart may have been created with [facility] voice recognition software. Occasi onal wrong-word or [...] 2019 | Visit | | DO [address] | | | | | | [place] [address] | | | | | | [phone] | | | | | | | [...]
--- OUTSIDE RECORDS SUMMARY | ~2019-07-09 | XMS | Encounter Summary ---
Demographics + + + | Address | [address] | | | [place] [address] | + + + | Home Phone [...] Providers + +------+ + | Care Motorcycle Fabricator Name | Role | Phone | + +------+ + | Tomasa Wagner | PCP | | + +------+ + Reason for Visit + + + | Reason | Comments | + + + | Medical Records | [facility] - OUTSIDE PROCEDURE REPORT | | Review | | + + + Encounter Details +--------+ + + + + | Date | Type | Department | Care Team | Description | +--------+ + + + + | 07/26/ | Abstract | [facility] | Tai Stanton, | Medical Records | | 2013 | | Center at [facility] [address] | [address] | Review ([facility] - | | | | [address] | [address] | OUTSIDE PROCEDURE | | | | Mailcode: [place] | [place], [place] | REPORT) | | | | for Health and | [address] | | | | | [place] [address] | [phone] | | | | | [place], [place] | | | | | | [address] | | | | | | [phone] | | | +--------+ + + + [...]
--- OUTSIDE RECORDS SUMMARY | ~2019-07-09 | XMS | Encounter Summary ---
Demographics + + + | Address | [address] | | | [place] [address] | + + + | Home Phone [...] [place] | | | | | | [address] | | | | | | [phone] | | | +--------+ + + + [...] + | [facility] | [address] | [place] [address] | | | SERVICES, CORE | PARK [...] [facility] | [address] | [place] [address] | | | SERVICES, SAM | PARK [...] SERVICES, | | | | | | SMA | | + +-------+ + + + [...] | + + + + + | [facility] | [address] | [place] [address] | | | SERVICES, CORE | [address] | | | + + + + + documented in this encounter Visit Diagnoses Not on filedocumented in this encounter"
--- OUTSIDE RECORDS SUMMARY | ~2019-07-09 | XMS | Encounter Summary ---
Demographics + + + | Address | [address] | | | [place] [address] | + + + | Home Phone [...] | Author | [facility] | | | and Eduardoana | + + + | Organization | [facility] | | | and Eduardoana | + + + | Address | Unknown | + + + | Phone | Unavailable | + + + Support + + + + + | Name | Relationship | Address | Phone | + + + + + | Poncho Oquendo | ECON | [address] | | | | | [place] | | | | | [address] | | + + + + + | Marta Upton | ECON | [place] | | | | | [address] | | + + + + + Care Team Providers + +------+ + | Care Oil And Gas Superintendent Name | Role | Phone | + +------+ + | Valeriy Carmona DO | PCP | | + +------+ + Encounter Details +--------+ + + + + | Date | Type | Department | Care Team | Description | +--------+ + + + + | 09/05/ | Orders Only | [facility] | Provider, | | | 2019 | | SYSTEM GENERIC OP | [address] | | | | | CONVERSION [address] | [address] | | | | | [address] [place], [place] | [place] [address] | | | | | [address] | | | | | | [phone] | | | +--------+ + + + [...] | | | | | | [place] [address] | | | | | | [phone] | | | | | | | | +--------+---------+ + + + documented as of this encounter Visit Diagnoses Not on filedocumented in this encounter"
--- OUTSIDE RECORDS SUMMARY | ~2019-07-09 | XMS | Encounter Summary ---
Demographics + + + | Address | [address] | | | [place] [address] | + + + | Home Phone [...] | Author | [facility] | | | and Eduardoana | + + + | Organization | [facility] | | | and Eduardoana | + + + | Address | Unknown | + + + | Phone | Unavailable | + + + Support + + + + + | Name | Relationship | Address | Phone | + + + + + | Poncho Oquendo | ECON | [address] | | | | | [place] | | | | | [address] | | + + + + + | Marta Upton | ECON | [place] | | | | | [address] | | + + + + + Care Team Providers + +------+ + | Care Retail Clerk Name | Role | Phone | [...] Soler MD [address] | ([facility]) (Primary Dx) | | | | ONCOLOGY [address] [place] | | | | | [place], | [place] [address] | | | | | [place] [address] | [phone] | | | | | [phone] | | | +--------+ + + + [...] [address] | | | | | | [place] [address] | | | | | | [phone] | | | | | | | | +--------+---------+ + + + documented as of this encounter Visit Diagnoses + + | Diagnosis | + + | 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
--- OUTSIDE RECORDS SUMMARY | ~2019-07-09 | XMS | Encounter Summary ---
Demographics + + + | Address | [address] | | | [place] [address] | + + + | Home Phone [...] Author | [facility] | | | and Eduardoana | + + + | Organization | [facility] | | | and Eduardoana | + + + | Address | Unknown | + + + | Phone | Unavailable | + + + Support + + + + + | Name | Relationship | Address | Phone | + + + + + | Poncho Oquendo | ECON | [address] | | | | | [place], [place] | | | | | [address] | | + + + + + | Marta Upton | ECON | [place] | | | | | [address] | | + + + + + Care Team Providers + +------+ + | Care Watcher Lookout Tower Name | Role | Phone | + [...] + + | 06/26/ | Telephone | [facility] | Marcelina Johnson, | IDT Note | | 2014 | | MED CTR CHEMO | RN | | | | | INFUSION [address] | | | | | | [place], | | | | | | [place] [address] | | | | | | [phone] | | | +--------+ + + + [...] [address] | | | | | | [place] [address] | | | | | | [phone] | | | | | | | | +--------+---------+ + + + documented as of this encounter Visit Diagnoses Not on filedocumented in this encounter"
--- OUTSIDE RECORDS SUMMARY | ~2019-07-09 | XMS | Encounter Summary ---
Demographics + + + | Address | [address] | | | [place] [address] | + + + | Home Phone [...] Team Providers + +------+ + | Care Candy Packer Name | Role | Phone | [...] | | | | Mailcode: Center | [place], [place] | | | | | for Health and | [address] | | | | | Healing, [address] | [phone] | | | | | [place], [place] | | | | | | [address] | | | | | | [phone] | | | +--------+ + + + [...]
--- OUTSIDE RECORDS SUMMARY | ~2019-07-09 | XMS | Encounter Summary ---
Demographics + + + | Address | [address] | | | [place] [address] | + + + | Home Phone [...] Providers + +------+ + | Care Professional Nursing Assistant Name | Role | Phone | [...] (HCC) | [address] | Velma Whitfield [facility] | | | | | Procedures | Rd | Hospital, | | | | | CT CHEST, | [place], [place] | 10th Floor | | | | | ABDOMEN & | [address] | [place], [place] | | | | | [address] | Phone: | [phone] | | | | | CONTRAST | [phone] | Phone: | | | | | [address], [address] | Fax: | [phone] | | | | | | [phone] | Fax: | | | | | | | [phone] | +--------+--------+ + + + + Reason [...] | | | | CT CHEST, | [place], [place] | [address]th Floor | | | | | ABDOMEN & | | [place], [place] | | | | | [address] | Phone: | [phone] | | | | | CONTRAST | [phone] | Phone: | | | | | [address], [address] | Fax: | [phone] | | | | | | [phone] | Fax: | | | | | | | [phone] | +--------+--------+ + + + + Encounter [...] | | | | | | [facility] | | | | | | Health and Healing, | | | | | | [place] [address], [facility] | | | | | | Floor [place], [place] | | | | | | [address] | | | | | | [phone] | | | +--------+ + + + [...]
--- OUTSIDE RECORDS SUMMARY | ~2019-07-09 | XMS | Encounter Summary ---
Demographics + + + | Address | [address] | | | [place] [address] | + + + | Home Phone [...] Team Providers + +------+ + | Care Scenario Writer Name | Role | Phone | [...] | | | | | [place] | | | | | | [place] [address] | | | +--------+--------+ + + + [...]
--- OUTSIDE RECORDS SUMMARY | ~2019-07-09 | XMS | Encounter Summary ---
Demographics + + + | Address | [address] | | | [place] [address] | + + + | Home Phone [...] | Author | [facility] | | | and Eduardoana | + + + | Organization | [facility] | | | and Eduardoana | + + + | Address | Unknown | + + + | Phone | Unavailable | + + + Support + + + + + | Name | Relationship | Address | Phone | + + + + + | Poncho Oquendo | ECON | [address] | | | | | [facility], [place] | | | | | [address] | | + + + + + | Marta Upton | ECON | [place] | | | | | [address] | | + + + + + Care Team Providers + +------+ + | Care Truck Driver Name | Role | Phone [...] + + | 11/29/ | Hospital | [facility] | Pedro Green, | Obstruction of left | | 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 | [facility] | DO [address] | ureter | | | | CARE FLO[address] | [place] [address] | | | | | [address] | [phone] | | | | | [place] | | | | | | [address] | | | | | | [phone] | | | +--------+ + + + [...] out of the urethra Date Last Reviewed: 02/15/201619992313-4939 [employer]. [address] [place] [address]. All righ ts reserved. This information is [...] on your doctor's advice. Talk to your construction electrician regarding the use of this medicine in children. Special care may be needed. What side effects may I notice from receiving this medicine? Side effects that you should report to your doctor or health after school caregiver as soon as p ossible: allergic reactions like skin rash, itching or hives, swelling of the face, lips, or tongue blue or purple color of the skin difficulty breathing fever less urine unusual bleeding, bruising unusual tired, weak vomiting yellowing of the eyes or skin Side effects that usually do not require medical attention (report to your doctor or health after school caregiver if they continue or are bothersome): dark [...] if you have any of these conditions: ladoedk-2-oenhpehwh dehydrogenase (G6PD) deficiency kidney disease an unusual or allergic reaction to phenazopyridine, other medicines, foods, dyes, or preser vatives or trying to get breast-feeding What should I watch for while using this medicine? Tell your doctor or health after school caregiver if your symptoms do not improve or [...] for sugar in your urine. Talk to [facility] health care provider. NOTE:This sheet is a [...] information carefully each time. Talk to your construction electrician regarding the use of this medicine in children. Special care may be needed. What side effects may I notice from receiving this medicine? Side effects that you should report to your doctor or health after school caregiver as soon as p ossible: allergic reactions [...] attention (report to your doctor or health after school caregiver if they continue or are bothersome): dry [...] watery. Check with your doctor or health after school caregiver if you get an attack of severe diarrhea, nausea and vomiting, or if you sweat a lot. The loss of too much body fluid can make it haile gerous for you to take this medicine. This medicine may affect blood sugar levels. If you have diabetes, check with your doctor o r health after school caregiver before you change your diet or the [...] [address] | | | | | | [place] [address] | | | | | | [phone] | | | | | | | [...] | | | | | | longer, ghcgfu-rqv-fsuxs use of | | | | | [...]
--- OUTSIDE RECORDS SUMMARY | ~2019-07-09 | XMS | Encounter Summary ---
Demographics + + + | Address | [address] | | | [place] [address] | + + + | Home Phone [...] Author | [facility] | | | and Eduardoana | + + + | Organization | [facility] | | | and Eduardoana | + + + | Address | Unknown | + + + | Phone | Unavailable | + + + Support + + + + + | Name | Relationship | Address | Phone | + + + + + | Poncho Oquendo | ECON | [address] | | | | | [facility] [place] | | | | | [address] | | + + + + + | Marta Upton | ECON | [place], [place] | | | | | [address] | | + + + + + Care Team Providers + +------+ + | Care Sweatband Decorating Machine Operator Name | Role | Phone | + +------+ + PCP | Unavailable | + +------+ + Encounter Details +--------+ + + + + | Date | Type | Department | Care Team | Description | +--------+ + + + + | 01/15/ | Hospital | [facility] | | | | 2012 | Encounter | MED CTR XRAY [address] | | | | | [address] | | | | | | [place] [address] | | | | | | [phone] | | | +--------+ + + + [...] [address] | | | | | | [place] [address] | | | | | | [phone] | | | | | | | [...] Performed At | + + + | [facility] Diagnostic Imaging | BATH | | Department [address] [place] | [facility] | | [ rep [address]] [ rep ct [facility] | | zip] Signed | - IMAGING | | | | | Patient Name: JENELLEAURA HANSON Physician: | | | LIZBETH. : 1960 Age: 52 Sex: F Unit #: [id number] | | | Exam Date: 01/15/13 Location: [facility] | | | Report #: [id number] Page: | | | %(RAD)RES..mtdd.print.filter("pg") of %(RAD) | | | RES..mtdd.print.filter("tpg") | | | | | | Accession Number: [id number] | | | CHEST, ABDOMEN, PELVIS CT [...] Transcribed | | | Date/Time: 01/15/2013 13:23 Swine Extension Field Specialist: | | | <<Signature on File>> | | | Mathieu Blas | | Emir Brasher MD01/15/132 <Electronically signed by Mathieu Brasher MD> Mathieu Brasher MD 01/15/13 1140 | | | Swine Extension Field Specialist: [email or web address] [id number]/02/13 1323 | | | Epifanio Najera MD | | + + + + + + + + | Performing | Address | City/State/Zipcode | Phone Number | | Organization | | | | + + + + + | [address] | [address] | [place] | [phone] | | [facility] | | [address] | | | - IMAGING | | | | + + + + + documented in this encounter Visit Diagnoses Not on filedocumented in this encounter
[~2019-07-09 01:55] MED LIST changes: +DURAGESIC1 EAC1 TOP; +REGLAN10 MG PO; +VANCOMYCIN HCL125 MG PO; +[UNRECOGNIZED DRUG - OTHER] IV
--- OUTSIDE RECORDS SUMMARY | 2019-07-09 01:58 | XMS ---
PreManage Notification: MARIA ELENA CORBIN Security Integrity Assessor Events No recent Security Events currently on file CRITERIA MET - History of Sepsis Dx - PDMP - [facility] - 2 Visits in 30 Days CARE PROVIDERS ADRIANNA SolerGILSON Internal Medicine: Medical Oncology Current CHAD PHONE: [phone] AHMET HOLLY Chemical Dependency Attendant Current PHONE: [phone] Name [facility] 06/07/2019-Current PHONE: [phone] Mela has no Care Guidelines for this patient. Care History Medical/Surgical 06/07/2019 [facility] - PATIENT IS A [place] ELIGIBLE, \T\middot;\T\nbsp; PLEASE REFER PATIENT TO [facility] FOR NON EMERGENT MEDICAL NEEDS. \T\middot;\T\nbsp; [facility] CAN SEE PATIENTS SAME DAY FOR APTS IF PATIENT CALLS FIRST THING IN THE MORNING. 06/09/2017 [facility] HISTORY GALLBLADDER CANCER WITH METS. E.D. VISIT COUNT (12 MO.) 4 [facility] TOTAL 4 NOTE: Visits indicate total known visits. ED/UCC VISIT TRACKING (12 MO.) [facility] COMPLAINT: - ABD PAIN 06/13/2019 11:15 [facility] [place] TYPE: Emergency COMPLAINT: - ABDOMINAL PAIN 06/06/2019 01:15 [facility] [place] TYPE: Emergency COMPLAINT: - ABDOMINAL PAIN/VOMITING DIAGNOSES: - Allergy status to sulfonamides status - Opioid dependence with withdrawal - Personal history of nicotine dependence - Generalized abdominal pain - Allergy status to other antibiotic agents status - Other residential (current) drug therapy 05/09/2019 16:29 [facility] [place] TYPE: Emergency COMPLAINT: - ABD PAIN INPATIENT VISIT TRACKING (12 MO.) 06/15/2019 17:07 [facility] [place] TYPE: Medical Surgical COMPLAINT: - COLITIS DIAGNOSES: - Intrahepatic bile duct carcinoma - Allergy status to other antibiotic agents status - Neoplasm related pain (acute) (chronic) - Gastroparesis - Unspecified severe protein-calorie malnutrition - director long term care (current) use of opiate analgesic - Allergy status to sulfonamides status - Personal history of nicotine dependence - Other keno terminal operator (current) drug therapy - Ulcerative (chronic) pancolitis without complications - 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 - Enterocolitis due to Clostridium difficile, not specified as - Other disorders of phosphorus metabolism - Gastrostomy status - Body mass index (BMI) 22.0-22.9, adult - Hypokalemia - Hypomagnesemia 05/09/2019 21:03 [facility] [place] TYPE: Medical [...] neoplasm of retroperitoneum and peritoneu - Other residential (current) drug therapy - Personal history of nicotine dependence - Personal history of nicotine dependence - director long term care (current) use of opiate analgesic - Anxiety disorder, unspecified - Opioid dependence, uncomplicated - Hormone replacement therapy - penitentiary (current) use of opiate analgesic - Anxiety disorder, unspecified - 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
[2019-07-09] MEDS ORDERED: DILAUDID1 MG/ML PO (06:18)
== END 2019-07-09 06:44 | disposition home or self-care (01) ==
LOC: ED 01:55
DX: C23 Malignant neoplasm of gallbladder (principal); K31.84 Gastroparesis; Z87.891 Personal history of nicotine dependence; Z88.2 Allergy status to sulfonamides; Z88.1 Allergy status to other antibiotic agents; Z79.899 Other long term (current) drug therapy
CPT/HCPCS: 80053; 83735; 85025; 96361; 96365; 96366; 96375; 96376; 99284-25; J1170; J2405; J3480; J7030

== ENCOUNTER 2019-10-19 16:03 | Inpatient (IN) | payer BC, OTHER ==
[~2019-10-19] VITALS: Ht 162.6 cm; Wt 75.2 kg
--- NOTE | ~2019-10-19 | [place] ---
[facility] [address], [place] [address] Draft DATE OF OPERATION: 10/23/2019 SURGEON: Keturah Savage MD TIME: 09:20 a.m. PROBLEMS: 1. New onset right-sided pneumothorax, recent BiPAP therapy, systemic sepsis, fungemia, and pancytopenia. 2. Platelet count 11,000. POSTOPERATIVE DIAGNOSES: 1. New onset right-sided pneumothorax, recent BiPAP therapy, systemic sepsis, fungemia, and pancytopenia. 2. Platelet count 11,000. PROCEDURE: Placement of a right anterior chest tube for pneumothorax. ANESTHESIA: Lidocaine 1%. INDICATIONS: This 58-year-old [place] woman is in the Intensive Care Unit, has had progressively decline with pancytopenia related to chemotherapy and fungemia documented by blood cultures. Her right-sided subclavian Port-A-Cath was explanted by me yesterday at the bedside and placed in a right internal jugular central venous catheter placed for administration of medications and pressor agents. She has had progressive decline since her hospitalization and is very tenuous as to recovery. She has expressly stated she wishes that all could be done in her medical care and interventions. She was placed on a BiPAP device last night due to hyperventilations and metabolic acidosis with a pH of 7.22 documented. She has been treated with intravenous bicarb. A chest x-ray was performed this morning, which shows a pneumothorax in the lateral aspect of the right lung chest wall is noted to be a space of 2-3 cm and at the apex 3.5 cm. This would be considered a moderate-sized pneumothorax. The radiologist suggests there may be a tension component, though my own review shows it unlikely. Her O2 saturations have been 93%. I have reviewed with Dr. Jones goals with therapy. A family conference is planned later in the morning as her prognosis is quite poor PATIENT NAME: MARIA ELENA CORBIN OPERATIVE REPORT DATE OF : 62 REPORT #: [id number] PHYSICIAN: KETURAH SAVAGE MD PCP: [facility] REPORT IS CONFIDENTIAL AND NOT TO BE RELEASED WITHOUT AUTHORIZATION [facility] [address], [place] [address] Draft overall. In the meantime, the chest tube is considered appropriate for possible expanding right-sided pneumothorax, likely related to her BiPAP therapy and underlying overall poor medical status platelet count is noted to be 11,000. With administrative consent, a right-sided chest tube is to be placed. The risks of bleeding in particular, and other unforeseen complications are well acknowledged. FINDINGS: A mini chest tube by Seldinger technique was deemed most appropriate and was successful. A 10-Lebanese chest tube was placed in the pleural space. A postprocedure chest x-ray shows good expansion of the lung. Good respiratory variation is noted in the Pleur-evac device. An air leak was initially noted, but has resolved entirely. There is some amount of clear light yellow pleural fluid that has been extracted. There was no untoward bleeding. DESCRIPTION OF PROCEDURE: In a semi-recumbent position, the right arm was elevated and the right chest wall prepared with a chlorhexidine solution and draped sterilely. Usual approach in the anterior axillary line was deemed inadvisable given the morphology of her broad flat breast, therefore a more anterior approach was deemed appropriate. Lidocaine 1% was injected over approximately the fourth rib interspace. Using the needle in the introducer kit with a syringe of anesthetic, the fourth rib was encountered after passage of the needle through the skin. The superior margin of the rib was identified and gentle pressure applied to enter the pleural space. Bubbles were noted as expected. The syringe was detached and a flexible J-wire was passed down the needle without impediment. The site was incised with a #10 blade, mindful of her low platelet count. A dilator and peel-away introducer were carefully introduced over the wire into the pleural space, the dilator removed and a 10-Lebanese chest tube passed through the peel-away introducer. The catheter was passed into the pleural space almost fully. The air was noted to egress from the chest tube. It was secured to the skin with a nylon suture. An adapter applied to the tube, and ultimately to the Pleur-evac device. A bit of an air leak was initially noted, which resolved. Pleural fluid was noted to be light pale yellow. A sterile dressing was applied including OpSite. The tube was separately secured to the abdominal wall to avoid dislodgement. A postprocedure portable chest x-ray was performed, which showed good expansion of the lung, no sign of complication. ESTIMATED BLOOD LOSS: Minimal. PATIENT NAME: MARIA ELENA CORBIN OPERATIVE REPORT DATE OF : 62 REPORT #: [id number] PHYSICIAN: KETURAH SAVAGE MD PCP: [facility] REPORT IS CONFIDENTIAL AND NOT TO BE RELEASED WITHOUT AUTHORIZATION [address] [address] Draft MD HILARIO Xavier/JE /[id number] cc: [facility] MD Venancio Vora MD Copies: [facility] SAGAR MELÉNDEZ MD, LOHITH VEERAPPA MD ~ PATIENT NAME: MARIA ELENA CORBIN OPERATIVE REPORT DATE OF : 62 REPORT #: [id number] PHYSICIAN: KETURAH SAVAGE MD PCP: [facility] REPORT IS CONFIDENTIAL AND NOT TO BE RELEASED WITHOUT AUTHORIZATION
--- OUTSIDE RECORDS SUMMARY | ~2019-10-19 | XMS | Encounter Summary ---
Demographics + + + | Address | [address] | | | [place] [address] | + + + | Home Phone | | + + + | Preferred Language | Unknown | + + + | Marital Status | Single | + + + | Druze Affiliation | NON | + + + | Race | White | + + + | Ethnic Group | Not or | + + + Author + + + | Author | [facility] | + + + | Organization | [facility] | + + + | Address | Unknown | + + + | Phone | Unavailable | + + + Support + + +---------+ + | Name | Relationship | Address | Phone | + + +---------+ + | Poncho Oquendo | ECON | Unknown | | + + +---------+ + | Elsy Upton | ECON | Unknown | | + + +---------+ + Care Team Providers + +------+ + | Care Product Safety Administrator Name | Role | Phone | + +------+ + | Prudencio Isaac MD | PCP | Unavailable | + +------+ + Reason for Visit + +--------+ + | Reason | Onset | Comments | | | Date | | + +--------+ + | Pre-op evaluation | 06/30/ | | | | 2008 | | + +--------+ + Encounter Details +--------+---------+ + + + | Date | Type | Department | Care Team | Description | +--------+---------+ + + + | 07/03/ | Office | Otolaryngology | Virgilio Buck MD | Other Specified | | 2008 | Visit | Facial Plastics & | [address] | Pre-Operative | | | | Reconstructive | [place]ma [place], | Examination (Primary | | | | Services at [facility] | [place] [address] | Dx); Perforation of | | | | [address] | [phone] | Nasal Septum | | | | [facility] | | | | | | and Healing, | | | | | | Building [address], 5th | | | | | | Floor [facility] [place] | | | | | | [address] | | | | | | [phone] | | | +--------+---------+ + + + Social History + +-------+ +--------+------+ | Tobacco Use | Types | Packs/Day | Years | Date | | | | | Used | | + +-------+ +--------+------+ | Never Assessed | | | | | + +-------+ +--------+------+ + + + | Sex Assigned at | Date Recorded | | | | + + + | Not on file | | + + + documented as of this encounter Patient Instructions Patient Instructions Prudencio Fay MD - 06/30/2008 12:34 AM PDTRegistration Locations (pl ease check in at one of the following registration desks prior to surgery) For surgeries scheduled to take place on the [place] at the [facility]: Surgeries scheduled in the [facility] ([address] [place] [address]): registration is located on the 4th floor of [facility] (Day Surgery). Surgeries scheduled in the [facility]: registration is located on the 9th floor. Surgeries scheduled in [facility]: registration is located on the 6th floor. Surgeries scheduled in the [facility]: registration is located i n the [facility] on the first floor. For surgeries scheduled to take place at the [facility]: registration is l ocated on the 4th floor (Surgery Center). Important Information Due to the increased prevalence of pests in our community, we are asking patients to partne r with us to keep our hospital clean. If you have noticed bugs or other pests in your home, on your belongings or on your body, please contact your doctor's office prior to your admis eri. For your safety and protection, please limit what you bring to the hospital. All valuables should be left at home. This includes pillows, blankets, clothing, purses, wallets, money an d jewelry. Patients may not bring personal electronics into the hospital, including hairdry ers, electric cherry, radios and CD players. If you use specialized medical equipment at [facility], please check with your provider before bringing it with you into the hospital. Registration Process for all Admissions/Surgeries Please bring your insurance card(s) with you and be prepared to pay any co-payment, co-insu geovanna or deposit that may be required. Once you arrive at the registration desk, you will be interviewed by a Patient Access Servi ce Specialist (SHANA). Demographics will be verified (example: name, date of , Social Se curity Number, address, insurance). You will be asked to sign some paperwork: Terms and Conditions of Service, Notice of Privac y Practices Acknowledgement and Genetic Testing Opt Out. You will be given some paperwork: copies of any forms signed by you, Patient Rights, Respon sibilities and Safety, Understanding Advance Directives, and Smoking Cessation Brochure.Elec tronically signed by Prudencio Fay MD at 06/30/2008 12:34 AM PDT documented in this encounter Progress Notes Virgilio Buck MD - 07/03/2008 5:13 PM PDTClinic: Facial Plastic and Reconstructive Surgery in [place] is a 47 y.o. female who comes in today for a preoperative visit. We are p brigid to perform septal perforation repair with AlloDerm. We took care of the paperwork and answered all questions. Surgical consent was obtained. Photos were taken previously. Routine prescriptions given, including percocet, keflex and ativan. I have reviewed the patient's H&P and her is otherwise healthy for surgery. Patient is all set for upcoming surgery. Virgilio Buck MD FACS Professor Facial Plastic and Reconstructive Surgery Dept. of Otolaryngology/Head and Neck Surgery [facility] [employer] [email or web address], Prudencio Coello MD - 2008 12:34 AM PDT Pre-Procedure History and Physical Date of Admission: 07/04/2008 Clinic: Facial Plastic and Reconstructive Surgery Clinic Aura Upton is a 47 y.o. female seen today in consultation with Dr. Lau for evaluati on of nasal septal perforation. The history is significant for septoplasty/sinus surgery in the recent past followed by appearance of a nasal septal perforation. This has improved so mewhat with conservative treatment and Bactroban but still she is plagued by crusting and bl eeding. Occasional whistling. She is interested in repair options. PMH: As above. Past Surgical History: As above; BTL Allergies: nkda Social History: Lives in [place]. Past smoking history, none now. No alcohol history. Medications: Current outpatient prescriptions : CELEBREX OR, None Entered, Disp: , Rfl: mupirocin (BACTROBAN NASAL) 2 % Nasal Ointment, apply one-half of the ointment from the tub e into one nostril and theother half into the other nostril by topical route 1 times per day morning, Disp: 1, Rfl: 6 Physical exam: Head normocephalic and atraumatic. Ears: Pinnae normal. Face symmetric motion. Voice no rmal. Nose: There is a 12 x 10 mm anterior nasal septal perforation, minimal crusting. Or al cavity/oropharynx: Grossly clear. Neck without adenopathy. Impression: Nasal septal perforation. Plan: Repair options discussed including surgical repair and button placement. I told her that I thought we had a 70% chance of closing the perf with open rhinoplasty approach and e ar cartilage grafting. She will consider the options and get back to us if she wishes to sc hedule. Jose Olivia MD Beef Specialist Facial Plastic and Reconstructive Surgery Department of Otolaryngology/Head and Neck Surgery [facility] [place] Email - [email or web address] HISTORY: Clinic: Facial Plastic and Reconstructive Surgery Clinic Aura Upton is a 47 y.o. female who returns for followup. She had seen Dr. Olivia and Dr. Lau in the past about her anterior nasal septal perforation. She has since experience d two more episodes of crusting with infection and bleeding and would like to proceed with p erforation repair. My examination again confirms an anterior septal perforation about 1 cm in diameter. I went over her options and alternatives, including observation with frequent daily irrigations, placement of silastic septal button and surgical repair with AlloDerm gra ft. I quoted her success rates of about 80%, with 17% chance of making the perforation smal ler but not completely closed, and 3% chance of the size either being unchanged or larger po stoperatively. I discussed with her the use of AlloDerm instead of her ear cartilage for gr afting to support the repair. Risks discussed include but are not limited to: infection, bl eeding, scar, persistent or worsened nasal obstruction, cosmetic deformity, asymmetry, scar being more noticeable, no guarantee of cosmetic outcome, need for future surgical procedures , and other unforseen complications. All questions were answered today. Photos obtained. She met with my construction technician maximo hirsch. Followup arranged for preop. Time spent with patient /family, reviewing studies/ recor ds 20 minutes, with >50 % of time spent in consultation and coordination of care. Virgilio Buck MD FACS Professor Facial Plastic and Reconstructive Surgery Dept. of Otolaryngology/Head and Neck Surgery [facility] tel fax email [email or web address] CURRENT PROBLEM LIST: Patient Active Problem List Diagnoses Date Noted Perforation of Nasal Septum [478.19DD] 06/03/2008 Nasal Septal Defect [478.19EW] 12/28/2007 No past medical history on file. No past surgical history on file. MEDICATIONS: Current outpatient prescriptions Medication Sig Dispense Refill mupirocin (BACTROBAN NASAL) 2 % Nasal Ointment apply one-half of the ointment from the tube into one nostril and theother half into the other nostril by topical route 1 times per day morning 1 6 No Known Allergies. FAMILY HISTORY: No family history on file. PROVISIONAL DIAGNOSIS: septal perforation PLANNED COURSE OF ACTION: septal perforation repair with placement of acellular dermis graf carmen PARQ: A PARQ session was held, additional questions with discussion were completed.Cate haider signed by Prudencio Fay MD at 06/30/2008 12:34 AM PDTdocumented in this encounter Miscellaneous Notes Scan - Other, Faculty - 07/24/2008 11:14 AM PDT documented in t his encounter Plan of Treatment Not on filedocumented as of this encounter Visit Diagnoses + + | Diagnosis | + + | Other specified pre-operative examination - Primary | + + | Perforation of nasal septum Other diseases of nasal cavity and sinuses | + + documented in this encounter"
--- OUTSIDE RECORDS SUMMARY | ~2019-10-19 | XMS | Encounter Summary ---
Demographics + + + | Address | [address] | | | [place] [address] | + + + | Home Phone | | + + + | Preferred Language | Unknown | + + + | Marital Status | Single | + + + | Catholic Affiliation | NON | + + + | Race | White | + + + | Ethnic Group | Not or | + + + Author + + + | Author | [facility] | + + + | Organization | [facility] | + + + | Address | [...] Team Providers + +------+ + | Care Graphics Programmer Name | Role | Phone | + +------+ + | Tomasa Wagner | PCP | | + +------+ + Encounter Details +--------+ + + + + | Date | Type | Department | Care Team | Description | +--------+ + + + + | 06/20/ | MyChart | [facility] | Miguel Seymour, | RE: Do I need to | | 2014 | Encounter | [facility] | [address] | continue the Lovenox | | | | [address] | injections? | | | | [address] | [place], [place] | | | | | [place], [facility] floor | [address] | | | | | [place], [place] | [phone] | | | | | [address] | | | | | | [phone] | | | +--------+ + + + + Social History + + + +--------+ [...] + +---------+ + | Alcohol Use | Drinks/Week | oz/Week | Comments | + + +---------+ + | Yes | 1 Glasses of wine | 0.8 | 2-3 glasses of wine | | | | | per month. | + + +---------+ + + + + | Sex Assigned at | Date Recorded | | | | + + + | Not on file | | + + + documented as of this encounter Miscellaneous Notes Telephone Encounter - Rukhsana Joiner RN - 06/20/2014 1:56 PM PDTSee mychart documented in thi s encounter Plan of Treatment Not on filedocumented as of this encounter Visit Diagnoses Not on filedocumented in this encounter"
--- OUTSIDE RECORDS SUMMARY | ~2019-10-19 | XMS | Encounter Summary ---
Demographics + + + | Address | [address] | | | [place] [address] | + + + | Home Phone | | + + + | Preferred Language | Unknown | + + + | Marital Status | Single | + + + | Protestant Affiliation | NON | + + + | Race | White | + + + | Ethnic Group | Not or | + + + Author + + + | Author | [facility] | + + + | Organization | [facility] | + + + | Address | [...] Team Providers + +------+ + | Care Paediatrician Name | Role | Phone | + +------+ + | Tomasa Wagner | PCP | | + +------+ + Reason for Visit + + + | Reason | Comments | + + + | Medical Records | [facility]: Progress Notes 09/25/2013 (f/u | | Review | chemo/radiation therapy for cholangiocarcinoma) & IMAGING REPORT | | | 09/25/2013 (enhanced CT abd and pel) | + + + Encounter Details +--------+ + + + + | Date | Type | Department | Care Team | Description | +--------+ + + + + | 09/26/ | Abstract | [facility]ive [facility] | Tai Stanton, | Medical Records | | 2013 | | Center at [facility] [address] | [address] [facility] | Review ([facility] | | | | [facility] | [facility] | OUTSIDE REOCRDS: | | | | for Health and | [place], [place] | Progress Notes | | | | Healing, [address] | [address] | 09/25/2013 (f/u | | | | [facility] [place] | [phone] | chemo/radiation | | | | [address] | | therapy for | | | | [phone] | | cholangiocarcinoma) | | | | | | & IMAGING REPORT | | | | | | 09/25/2013 (enhanced | | | | | | CT abd and pel) ) | +--------+ + + + + Social [...] + + documented as of this encounter Plan of Treatment Not on filedocumented as of this encounter Visit Diagnoses Not on filedocumented in this encounter"
--- OUTSIDE RECORDS SUMMARY | ~2019-10-19 | XMS | Encounter Summary ---
Demographics + + + | Address | [address] | | | [place] [address] | + + + | Home Phone | | + + + | Preferred Language | Unknown | + + + | Marital Status | | + + + | Yarsani Affiliation | Unknown | + + + | Race | White | + + + | Ethnic Group | Not or | + + + Author + + + | Author | [facility] | | | and [place] | + + + | Organization | [facility] | | | and [place] | + + + | Address | Unknown | + + + | Phone | Unavailable | + + + Support + + + + + | Name | Relationship | Address | Phone | + + + + + | Poncho Oquendo | ECON | [address] | | | | | [place] | | | | | [address] | | + + + + + | Marta Upton | ECON | [place] | | | | | [address] | | + + + + + Care Team Providers + +------+ + | Care Mirror Polisher Name | Role | Phone | + +------+ + | No, Physician | PCP | Unavailable | + +------+ + Reason for Visit Auth/Cert +--------+--------+ + + + + | Status | Reason | Specialty | Diagnoses / | Referred By | Referred To | | | | | Procedures | Contact | Contact | +--------+--------+ + + + + | | | | Diagnoses | | | | | | | 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 | Pedro Green, | CYSTOSCOPY URETERAL | | 2018 | [facility] | DO [address] | STENT stent removal | | | | [address] | [place] [address] | and replacement | | | | [address] | [phone] | | | | | [place], [place] | | | | | | [address] | | | | | | [phone] | | | +--------+---------+ + + + Social History + +-------+ +--------+------+ | Tobacco Use | Types | Packs/Day | Years | Date | | | | | Used | | + +-------+ +--------+------+ | Former Smoker | | | | | + +-------+ +--------+------+ + +---+---+---+ | Smokeless Tobacco: | | | | | Never Used | | | | + +---+---+---+ + + +---------+ + | Alcohol Use | Drinks/Week | oz/Week | Comments | + + +---------+ + | Not Currently | | | | + + +---------+ + + + + | Sex Assigned at | Date Recorded | | | | + + + | Not on file | | + + + documented as of this encounter Discharge Instructions Instructions Jevon Morfin RN - 11/29/2018 Follow up in the office in 4-5 months to arrange stent exchange Ureteral Stents A ureteral stent is a soft plastic tube with holes in it. It s temporarily inserted into a ureter to help drain urine into the bladder. One end goes in the kidney. The other end goe s in the bladder. A coil on each end holds the stent in place. The stent can t be seen fro m outside the body. It shouldn t interfere with your normal routine. Your stent will be pu t in by a doctor trained in treating the urinary tract (a urologist) or another specialist. The procedure is done in a hospital or surgery center. You ll likely go home the same day. When is a ureteral stent used? A ureteral stent may be used: To bypass a blockage in a kidney or ureter. During kidney stone removal. To let a ureter heal after surgery. Before the Procedure Your healthcare provider will give you instructions toprepare for the procedure. X-rays o r other imaging tests of your kidneys and ureters may be done beforehand. During the procedure You receive medicine to prevent pain and help you relax or sleep during the procedure. O nce this takes effect, the procedure starts. The doctor inserts a cystoscope(lighted instrument) through the urethra and into the b ladder. This shows the opening to the ureter. A thin wire is carefully threaded through the cystoscope, up the ureter, and into the ki dney. The stent is inserted over the wire. A fluoroscope (special X-ray machine) is used to help position the stent. When the stent is in place, the wire and cystoscope are removed. While you have a stent Some discomfort is normal. Certain movements may trigger pain or a feelingthat you nee d to urinate. You may also feel mild soreness or pressure before or during urination. These symptoms will go away a few days after the stent is removed. Medicine to control pain or bladder spasms or to prevent infection may be prescribed. Ta ke this as directed. Drink plenty of fluids to help flush out your urinary tract. Your urine may be slightly pink or red. This is due to bleeding caused by minor irritati on from the stent. This may happenon and off while you have the stent. As with any synthetic device placed in the body, there is a risk of infection. The stent may have to be removed if this happens. How long will you need a stent? The stent is often taken out after the blockagein the ureter is treated or the ureter has healed. This may take 1 week to 2 weeks, or longer. If a stent is needed for a long time, i t may need to be changed every few months. When to call your healthcare provider Contact your healthcare provider right away if: Your urine contains blood clots or you see a large amount of blood-tinged urine You have symptoms similar to those you had before the stent was placed You constantly leak urine You have a fever over 100.4F (38C), chills, nausea, or vomiting Your pain is not relieved with medicine The end of the stent comes out of the urethra Date Last Reviewed: 02/15/[id number] [employer]. [address] [place] [address], [place] [address]. All righ ts reserved. This information is not intended as a substitute for professional medical care. Always follow your healthcare professional's instructions. After Your Surgery You ve just had surgery. During surgery, you received medication called anesthesia to ap p you comfortable and pain-free. After surgery, you may experience some pain or nausea. This is common. Going Home Have an adult family member or friend drive you home. For the first 24 hours after your georgina beatriz: ? Do not drive or use heavy equipment. ? Do not make important decisions or sign legal documents. ? Avoid alcohol. ? Have someone stay with you, if needed. He or she can watch for problems and help keep you safe. Be sure to keep all follow-up appointments with your doctor. And rest after your procedure for as long as your doctor tells you to. Coping with Pain If you have pain after surgery, pain medication will help you feel better. Take your medica tion as directed, before pain becomes severe. Consider other ways to control pain, such as with heat, ice, and relaxation. To get the best relief possible, remember these points: ? Pain medications can upset your stomach. Taking them with a little food may help. ? Most pain relievers taken by mouth need at least 20 to 30 minutes to take effect. ? Taking medication on a schedule can help you remember to take it. Try to time your medica tion so that you can take it before beginning an activity, such as dressing, walking, or sit ting down for dinner. ? Don t drink alcohol while taking pain medication. ? Don t drive or operate machinery while taking pain medications as they can slow your re flexes. If your health care provider tells you to take acetaminophen or ibuprofen to help relieve y our pain, ask him or her how much you are supposed to take each day. Constipation ? Constipation is a common side effect of pain medications and anesthetics. Contact your do ctor before taking any medications like laxatives or stool softeners to help relieve constip ation, unless they have been prescribed for you. ? Drinking lots of non-alcoholic fluids and eating foods like fruits and vegetables that ar e high in fiber can also help. Managing Nausea Some people have an upset stomach after surgery. This is often due to anesthesia, pain, lucy n medications, or the stress of surgery. If you were on a special diet before surgery, ask your doctor if you should follow it during recovery. These tips may help: ? Don t push yourself to eat. Your body will tell you when to eat and how much. ? Start off with clear liquids and soup. They are easier to digest. Slowly move to solid f oods. Don t eat fatty, rich, or spicy foods at first. ? Don t force yourself to have three large meals a day. Instead, eat smaller amounts more often. Blood Clot Prevention Deep vein thrombosis (DVT) is a clot that forms in your deep veins usually in the leg o r thigh. A pulmonary embolism (PE) occurs when a clot in the bloodstream travels through th e heart and into the lungs. If the clot becomes stuck in a blood vessel in the lungs, blood flow can be blocked which causes life-threatening heart and lung problems. The following are prevention tips: ? Elevate your legs whenever they feel swollen or heavy ? Maintain a healthy weight ? Quit smoking ? Avoid sitting, standing, or lying down for long periods without moving your legs and feet . o When traveling by car, make frequent stops to get out and move around. o On long airplane, train, or bus rides, get up and move around when possible. o If you can t get up, wiggle your toes and tighten your calves to keep your blood moving . If you have any of these symptoms of DVT or PE, call your doctor: ? Swelling, pain, or both, often in one limb ? Redness or warmth, often in one limb ? Sudden, continuous pain deep in your muscle ? Worsening ache when you are active or when you stand still for a long time ? Rapid, pounding, or unusual heartbeat ? Sweating more than usual. ? Chest pain, trouble breathing, coughing up blood, skin turning blue, or fainting Call 911. Phenazopyridine tablets Brand Names: AZO, Azo-100, Azo-Gesic, Azo-Septic, Azo-Standard, Phenazo, Prodium, Pyridium, Urinary Analgesic, Uristat, Uristat Ultra What is this medicine? PHENAZOPYRIDINE (fen az oh PEER i mere) is a pain reliever. It is used to stop the pain, bu rning, or discomfort caused by infection or irritation of the urinary tract. This medicine i s not an antibiotic. It will not cure a urinary tract infection. How should I use this medicine? Take this medicine by mouth with a glass of water. Follow the directions on the prescriptio n label. Take after meals. Take your doses at regular intervals. Do not take your medicine m ore often than directed. Do not skip doses or stop your medicine early even if you feel bett er. Do not stop taking except on your doctor's advice. Talk to your billet straightener regarding the use of this medicine in children. Special care may be needed. What side effects may I notice from receiving this medicine? Side effects that you should report to your doctor or health child care center administrator as soon as p ossible: allergic reactions like skin rash, itching or hives, swelling of the face, lips, or tongue blue or purple color of the skin difficulty breathing fever less urine unusual bleeding, bruising unusual tired, weak vomiting yellowing of the eyes or skin Side effects that usually do not require medical attention (report to your doctor or health child care center administrator if they continue or are bothersome): dark urine headache stomach upset What may interact with this medicine? Interactions are not expected. What if I miss a dose? If you miss a dose, take it as soon as you can. If it is almost time for your next dose, ta ke only that dose. Do not take double or extra doses. Where should I keep my medicine? Keep out of the reach of children. Store at room temperature between 15 and 30 degrees C (59 and 86 degrees F). Protect from l ight and moisture. Throw away any unused medicine after the expiration date. What should I tell my health care provider before I take this medicine? They need to know if you have any of these conditions: [id number] dehydrogenase (G6PD) deficiency kidney disease an unusual or allergic reaction to phenazopyridine, other medicines, foods, dyes, or preser vatives or trying to get breast-feeding What should I watch for while using this medicine? Tell your doctor or health child care center administrator if your symptoms do not improve or if they get worse. This medicine colors body fluids red. This effect is harmless and will go away after you ar e done taking the medicine. It will change urine to an dark orange or red color. The red col or may stain clothing. Soft contact lenses may become permanently stained. It is best not to wear soft contact lenses while taking this medicine. If you are diabetic you may get a false positive result for sugar in your urine. Talk to yo health care provider. NOTE:This sheet is a summary. It may not cover all possible information. If you have questi ons about this medicine, talk to your doctor, pharmacist, or health care provider. Copyright 2019 [employer] Ciprofloxacin tablets Brand Name: Cipro What is this medicine? CIPROFLOXACIN (sip elsa FLOX a sin) is a quinolone antibiotic. It is used to treat certain k inds of bacterial infections. It will not work for colds, flu, or other viral infections. How should I use this medicine? Take this medicine by mouth with a full glass of water. Follow the directions on the prescr iption label. You can take it with or without food. If it upsets your stomach, take it with food. Take your medicine at regular intervals. Do not take your medicine more often than dir ected. Take all of your medicine as directed even if you think you are better. Do not skip d oses or stop your medicine early. Avoid antacids, aluminum, calcium, iron, magnesium, and zinc products for 6 hours before an d 2 hours after taking a dose of this medicine. A special MedGuide will be given to you by the pharmacist with each prescription and refill . Be sure to read this information carefully each time. Talk to your billet straightener regarding the use of this medicine in children. Special care may be needed. What side effects may I notice from receiving this medicine? Side effects that you should report to your doctor or health child care center administrator as soon as p ossible: allergic reactions like skin rash or hives, swelling of the face, lips, or tongue anxious back pain bloody or watery diarrhea chest pain confusion depressed mood fast, irregular heartbeat fever hallucination, loss of contact with reality joint, muscle, or tendon pain or swelling loss of memory pain, tingling, numbness in the hands or feet seizures signs and symptoms of high blood sugar such as dizziness; dry mouth; dry skin; fruity br eath; nausea; stomach pain; increased hunger or thirst; increased urination signs and symptoms of liver injury like dark yellow or brown urine; general ill feeling or flu-like symptoms; light-colored stools; loss of appetite; nausea; right upper belly pain ; unusually weak or tired; yellowing of the eyes or skin signs and symptoms of low blood sugar such as feeling anxious; confusion; dizziness; inc reased hunger; unusually weak or tired; sweating; shakiness; cold; irritable; headache; blur red vision; fast heartbeat; loss of consciousness; pale skin stomach pain suicidal thoughts or other mood changes sunburn unusually weak or tired Side effects that usually do not require medical attention (report to your doctor or health child care center administrator if they continue or are bothersome): dry mouth headache nausea trouble sleeping What may interact with this medicine? Do not take this medicine with any of the following medications: cisapride dofetilide dronedarone flibanserin lomitapide pimozide thioridazine tizanidine ziprasidone This medicine may also interact with the following medications: antacids control pills caffeine certain medicines for diabetes, like glipizide, glyburide, or insulin certain medicines that treat or prevent blood clots like warfarin clozapine cyclosporine didanosine buffered tablets or powder duloxetine lanthanum carbonate lidocaine methotrexate multivitamins NSAIDS, medicines for pain and inflammation, like ibuprofen or naproxen olanzapine omeprazole other medicines that prolong the QT interval (cause an abnormal heart rhythm) phenytoin probenecid ropinirole sevelamer sildenafil sucralfate theophylline zolpidem What if I miss a dose? If you miss a dose, take it as soon as you can. If it is almost time for your next dose, ta ke only that dose. Do not take double or extra doses. Where should I keep my medicine? Keep out of the reach of children. Store at room temperature below 30 degrees C (86 degrees F). Keep container tightly closed. Throw away any unused medicine after the expiration date. What should I tell my health care provider before I take this medicine? They need to know if you have any of these conditions: bone problems diabetes heart disease high blood pressure history of irregular heartbeat history of low levels of potassium in the blood joint problems kidney disease myasthenia gravis seizures tendon problems tingling of the fingers or toes, or other nerve disorder an unusual or allergic reaction to ciprofloxacin, other antibiotics or medicines, foods, dyes, or preservatives or trying to get breast-feeding What should I watch for while using this medicine? Tell your doctor or healthcare professional if your symptoms do not start to get better or if they get worse. Do not treat diarrhea with over the counter products. Contact your doctor if you have diarr hea that lasts more than 2 days or if it is severe and watery. Check with your doctor or health child care center administrator if you get an attack of severe diarrhea, nausea and vomiting, or if you sweat a lot. The loss of too much body fluid can make it haile gerous for you to take this medicine. This medicine may affect blood sugar levels. If you have diabetes, check with your doctor o r health child care center administrator before you change your diet or the dose of your diabetic medicine . You may get drowsy or dizzy. Do not drive, use machinery, or do anything that needs mental alertness until you know how this medicine affects you. Do not sit or stand up quickly, radha cially if you are an older patient. This reduces the risk of dizzy or fainting spells. This medicine can make you more sensitive to the sun. Keep out of the sun. If you cannot av oid being in the sun, wear protective clothing and use a sunscreen. Do not use sun lamps or tanning beds/booths. NOTE:This sheet is a summary. It may not cover all possible information. If you have questi ons about this medicine, talk to your doctor, pharmacist, or health care provider. Copyright 2019 [employer] documented in this encounter Medications at Time of Discharge + + + +---------+ + + | Medication | Sig | Dispensed | Refills | Start | End Date | | | | | | Date | | + + + +---------+ + + | docusate sodium | Take 100 mg by mouth | | 0 | | | | (STOOL SOFTENER) 100 | 2 times daily. | | | | | | mg capsule | | | | | | + + + +---------+ + + | GRANIX 300 | | | 0 | 03/06/19 | | | MCG/0.5ML injection | | | | 19 | | + + + +---------+ + + | HYDROmorphone | Take by mouth every | | 0 | | | | (DILAUDID) 1 MG/ML | three hours as | | | | | | LIQD | needed. Indications: | | | | | | | unknown | | | | | + + + +---------+ + + | LORazepam (ATIVAN) | Take 1.5 mg by | | 0 | 10/29/19 | | | 1 mg tablet | mouth. | | | 18 | | + + + +---------+ + + | magnesium oxide | | | 0 | 11/13/19 | | | (MAG-OX) 400 mg | | | | 19 | | | tablet | | | | | | + + + +---------+ + + | naloxone (NARCAN) | Instill 1 spray into | | 0 | 12/28/19 | | | 4 mg/nasal spray | nose as needed for | | | 18 | | | | suspected opioid | | | | | | | overdose. Repeat | | | | | | | with second device | | | | | | | into other nostril | | | | | | | after 2-3 minutes if | | | | | | | no/minimal | | | | | | | response. | | | | | + + + +---------+ + + | ondansetron | Dissolve 4 mg on | | 0 | | | | (ZOFRAN ODT) 4 mg | tongue and swallow | | | | | | disintegrating | every twelve hours | | | | | | tablet | as needed. | | | | | | | Indications: unknown | | | | | | | home dose | | | | | + + + +---------+ + + | acetaminophen | Take 500 mg by mouth | | 0 | | | | (TYLENOL) 500 mg | every 4 hours as | | | | 0 | | tablet | needed for | | | | | | | Headaches. | | | | | + + + +---------+ + + | ciprofloxacin | Take 1 tablet by | 6 | 0 | 11/30/19 | | | (CIPRO) 250 mg | mouth 2 times daily | tablet | | 19 | 9 | | tablet | for 3 days. | | | | | + + + +---------+ + + | ciprofloxacin | Take 1 tablet by | | 0 | 12/28/19 | | | (CIPRO) 500 mg | mouth every twelve | | | 18 | 0 | | tablet | hours. Indications: | | | | | | | port infection | | | | | + + + +---------+ + + | CONSTULOSE 10 | take 15 milliliters | | 0 | 09/29/19 | | | GM/15ML solution | by mouth twice a day | | | 18 | 0 | | | if needed for | | | | | | | constipation | | | | | + + + +---------+ + + | dexamethasone | Take 1 tablet by | 20 | 5 | 05/21/19 | | | (DECADRON) 4 mg | mouth 2 times daily | tablet | | 18 | 0 | | tabletIndications: | (with breakfast & | | | | | | Gallbladder cancer, | dinner). On Days 2, | | | | | | carcinoma (HCC) | 3 and Days 9, 10 of | | | | | | | each cycle. | | | | | + + + +---------+ + + | fentaNYL | Apply 1 patch to | | 0 | 12/27/19 | | | (DURAGESIC) 100 | skin every | | | 18 | 0 | | mcg/hr | seventy-two hours. | | | | | | | Please remove old | | | | | | | patch prior to | | | | | | | placing a new one. | | | | | + + + +---------+ + + | fentaNYL | | | 0 | 11/09/19 | | | (DURAGESIC) 12 | | | | 19 | 0 | | mcg/hr | | | | | | + + + +---------+ + + | fentaNYL | apply 1 patch | | 0 | 08/04/19 | | | (DURAGESIC) 25 | topically every 72 | | | 19 | 0 | | mcg/hr | hours | | | | | + + + +---------+ + + | fentaNYL | | | 0 | 05/24/19 | | | (DURAGESIC) 50 | | | | 19 | 0 | | mcg/hr | | | | | | + + + +---------+ + + | fentaNYL | apply 1 patch | | 0 | 03/03/19 | | | (DURAGESIC) 75 | topically every 72 | | | 19 | 0 | | mcg/hr | hours | | | | | + + + +---------+ + + | | Take 7.5 mg by mouth | | 0 | | | | HYDROcodone-acetamin | every 4 hours as | | | | 0 | | ophen (NORCO) | needed. | | | | | | 7.5-325 mg per | | | | | | | tablet | | | | | | + + + +---------+ + + | HYDROmorphone | | | 0 | 06/17/19 | | | (DILAUDID) 1 MG/ML | | | | 19 | 0 | | LIQD | | | | | | + + + +---------+ + + | HYDROmorphone | Take 2-3 tablets by | 150 | 0 | 05/21/19 | | | (DILAUDID) 2 mg | mouth every 3 hours | tablet | | 18 | 0 | | tablet | as needed. | | | | | + + + +---------+ + + | LORazepam (ATIVAN) | take 1 tablet by | 60 | 0 | 05/31/19 | | | 1 mg | mouth every 4 hours | tablet | | 19 | 0 | | tabletIndications: | if needed FOR | | | | | | Gallbladder cancer, | NAUSEA, ANXIETY OR | | | | | | carcinoma (HCC) | RESTLESSNESS | | | | | + + + +---------+ + + | LORazepam (ATIVAN) | Take 1 tablet by | 40 | 5 | 05/21/19 | | | 1 mg | mouth every 4 hours | tablet | | 18 | 0 | | tabletIndications: | as needed (nausea, | | | | | | Gallbladder cancer, | anxiety or | | | | | | carcinoma (HCC) | restlessness). | | | | | + + + +---------+ + + | LORazepam (ATIVAN) | take 1/2 to 1 tablet | | 0 | 03/17/19 | | | 2 MG tablet | by mouth every 4 | | | 19 | 0 | | | hours if needed for | | | | | | | pain | | | | | + + + +---------+ + + | magnesium oxide | take 1 tablet by | | 0 | 06/10/19 | | | (MAG-OX) 400 mg | mouth once daily | | | 19 | 0 | | tablet | | | | | | + + + +---------+ + + | ondansetron | | | 0 | 05/20/19 | | | (ZOFRAN ODT) 8 mg | | | | 18 | 0 | | disintegrating | | | | | | | tablet | | | | | | + + + +---------+ + + | ondansetron | Take 1 tablet by | 50 | 3 | 05/21/19 | | | (ZOFRAN) 8 MG tablet | mouth every 8 hours | tablet | | 18 | 0 | | | as needed for | [...] | | | | | + + + +---------+ + + | ondansetron | Take one tablet | 30 | 5 | 05/21/19 | | | (ZOFRAN) 8 MG | orally twice a day | tablet | | 18 | 0 | | tabletIndications: | for two days after | | | | | | Gallbladder cancer, | chemotherapy, then | | | | | | carcinoma (HCC) | every 8 hours as | | | | | | | needed for nausea. | | | | | + + + +---------+ + + | OXYCONTIN 20 MG ER | Take 2 tablets by | 120 | 0 | 05/21/19 | | | abuse-deterrent | mouth every 12 | tablet | | 18 | 0 | | tablet | hours. | | | | | + + + +---------+ + + | phenazopyridine | Take 1 tablet by | 20 | 0 | 11/30/19 | | | (PYRIDIUM) 100 mg | mouth 3 times daily | tablet | | 19 | 0 | | tablet | as needed for Pain. | | | | | + + + +---------+ + + | Probiotic Product | Take by mouth | | 0 | | | | (PROBIOTIC DAILY PO) | Daily. | | | | 0 | + + + +---------+ + + | promethazine | | | 0 | 05/20/19 | | | (PHENERGAN) 25 mg | | | | 18 | 0 | | tablet | | | | | | + + + +---------+ + + documented as of this encounter Progress Notes Nikky Guallpa RN - 11/29/2018 3:56 PM PDTDischarge instructions including prescriptio ns and when to call the doctor were reviewed with the patient and mother. All questions were answered. Discharge criteria has been; vss and patient was able to void. Patient discharged home via wheelchair with mother. Nikky Guallpa RN 11/29/18 15:58 documented in this encounter H&P Notes Pedro Green, - 11/29/2018 12:52 PM PDTSURGICAL INTERIM HISTORY & PHYSICAL UPDATE Pt. Name/Age/: Aura Upton 58 y.o. 1960 Date of admission: 11/29/2018 The current H&P was reviewed. The patient was reexamined. Re-evaluation of the patient co nfirms the necessity for the scheduled procedure. No change has occurred in the patient s condition since the H&P was completed less than 30 days ago. VERIFICATION OF CONSENT (PARQ) The patient was counseled regarding the procedure, its indications, risks, potential compli cations and alternatives. Any questions were answered. Consent was obtained. Electronically signed by: Pedro Green DO, 11/29/2018 12:52 [facility] Pedro Hanley DO - 11/21/2018 10:30 AM PDT [facility] Urology Primary Care Provider: No Physician on file History Obtained From: Patient Primary Care Physician: No Physician on file CHIEF COMPLAINT: Follow up; ureteral obstruction Chief Complaint Patient presents with Follow-up 4 month follow up for stent replacement HISTORY OF PRESENT ILLNESS INTERVAL: 11/21/2018 Dr Pedro Green DO The patient is a 58 y.o. female with significant past medical history below who presents fo r follow up. She is doing well overall. Recent imaging showed a lack of recurrence of her malignancy. There was a question of incre ased left hydronephrosis. She notes some intermittent cramping type left flank pain. She denies UTI, fevers, nausea. INTERVAL: 06/08/2018 - Dr Pedro Green DO The patient is a 57 y.o. female with significant past medical history below who presents fo r hydronephrosis. She has a history of biliary cancer, diagnosed in 2011. She underwent multiple bouts of ch emotherapy. 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 She had a sten t placed in 2017 due to extrinsic compression. She has tolerated this well. Her last excha nge was at [facility] during a septic episode. Her last CT showed remission. She notes occasional hematuria. She denies stone disease. She denies smoking history. She denies family Hx of malignancy. History: Past Medical History: Diagnosis Date Chronic kidney disease Gallbladder carcinoma (HCC) Past Surgical History: Procedure Laterality Date SECTION COLONOSCOPY CYSTOSCOPY HYSTERECTOMY LIVER SURGERY OTHER SURGICAL HISTORY UNLISTED PROCEDURE ARTHROSCOPY OTHER SURGICAL HISTORY MEDIPORT INSERTION SINGLE OTHER SURGICAL HISTORY HARDWARE PRESENT OTHER SURGICAL HISTORY Left 07/05/2018 CYSTOSCOPY W/ URETERAL STENT PLACEMENT - Procedure: CYSTOSCOPY - STENT; Surgeon: Pedro Green DO; Location: [facility] MAIN OR; Service: Urology; Laterality: Left; stent exchange Family History Problem Relation Age of Onset Malig hypertherm Neg Hx Social History Socioeconomic History Marital status: Single Spouse name: Not on file Number of children: Not on file Years of education: Not on file Highest education level: Not on file Tobacco Use Smoking status: Former Smoker Smokeless tobacco: Never Used Allergies: Allergies Allergen Reactions Sulfa Antibiotics Rash Sulfacetamide Sodium Hives Medications: Current Outpatient Medications Medication Sig Dispense Refill acetaminophen (TYLENOL) 500 mg tablet Take 500 mg by mouth every 4 hours as needed for Headaches. ciprofloxacin (CIPRO) 500 mg tablet Take 1 tablet by mouth every twelve hours. Indicati ons: port infection CONSTULOSE 10 GM/15ML solution take 15 milliliters by mouth twice a day if needed for c onstipation 0 dexamethasone (DECADRON) 4 mg tablet Take 1 tablet by mouth 2 times daily (with breakfa st & dinner). On Days 2, 3 and Days 9, 10 of each cycle. 20 tablet 5 docusate sodium (STOOL SOFTENER) 100 mg capsule Take 100 mg by mouth 2 times daily. fentaNYL (DURAGESIC) 100 mcg/hr Apply 1 patch to skin every seventy-two hours. Please r emove old patch prior to placing a new one. fentaNYL (DURAGESIC) 75 mcg/hr apply 1 patch topically every 72 hours 0 GRANIX 300 MCG/0.5ML injection 0 HYDROmorphone (DILAUDID) 1 MG/ML LIQD Take by mouth every three hours as needed. Indica tions: unknown HYDROmorphone (DILAUDID) 1 MG/ML LIQD 0 HYDROmorphone (DILAUDID) 2 mg tablet Take 2-3 tablets by mouth every 3 hours as needed. 150 tablet 0 LORazepam (ATIVAN) 1 mg tablet Take 1.5 mg by mouth. LORazepam (ATIVAN) 1 mg tablet take 1 tablet by mouth every 4 hours if needed FOR NAUSE A, ANXIETY OR RESTLESSNESS 60 tablet 0 LORazepam (ATIVAN) 1 mg tablet Take 1 tablet by mouth every 4 hours as needed (nausea, anxiety or restlessness). 40 tablet 5 LORazepam (ATIVAN) 2 MG tablet take 1/2 to 1 tablet by mouth every 4 hours if needed fo r pain 0 magnesium oxide (MAG-OX) 400 mg tablet take 1 tablet by mouth once daily 0 naloxone (NARCAN) 4 mg/nasal spray Instill 1 spray into nose as needed for suspected op ioid overdose. Repeat with second device into other nostril after 2-3 minutes if no/minimal response. ondansetron (ZOFRAN ODT) 4 mg disintegrating tablet Dissolve 4 mg on tongue and swallow every twelve hours as needed. Indications: unknown home dose ondansetron (ZOFRAN ODT) 8 mg disintegrating tablet ondansetron (ZOFRAN) 8 MG tablet Take 1 tablet by mouth every 8 hours as needed for Luigi sea. May take twice daily for two days after chemo; or one tab every eight hours as needed f or nausea 50 tablet 3 ondansetron (ZOFRAN) 8 MG tablet Take one tablet orally twice a day for two days after chemotherapy, then every 8 hours as needed for nausea. 30 tablet 5 OXYCONTIN 20 MG ER abuse-deterrent tablet Take 2 tablets by mouth every 12 hours. 120 t ablet 0 Probiotic Product (PROBIOTIC DAILY PO) Take by mouth Daily. promethazine (PHENERGAN) 25 mg tablet No current facility-administered medications for this visit. REVIEW OF SYSTEMS Review of Systems Constitutional: Negative for chills, fever and weight loss. Eyes: Negative for blurred vision. Respiratory: Negative for shortness of breath. Cardiovascular: Negative for chest pain. Gastrointestinal: Negative for abdominal pain, nausea and vomiting. Genitourinary: Positive for flank pain. Negative for dysuria, frequency, hematuria and urge ncy. Skin: Negative for rash. Neurological: Negative for dizziness and headaches. Endo/Heme/Allergies: Does not bruise/bleed easily. Psychiatric/Behavioral: Negative for depression. PHYSICAL EXAM Vital Signs: BP 113/71 | Pulse 51 | Wt 68 kg (150 lb) | SpO2 90% | BMI 26.57 kg/m Physical Exam Constitutional: She is oriented to person, place, and time. She appears well-developed and well-nourished. HENT: Head: Atraumatic. Eyes: Pupils are equal, round, and reactive to light. Conjunctivae are normal. Neck: Normal range of motion. Cardiovascular: Normal rate. Pulmonary/Chest: Effort normal. Abdominal: Soft. Genitourinary: Genitourinary Comments: No CVA tenderness to palpation Musculoskeletal: Normal range of motion. Neurological: She is alert and oriented to person, place, and time. Skin: Skin is warm and dry. Psychiatric: She has a normal mood and affect. Her behavior is normal. DATA CBC: Lab Results Component Value Date WBC 6.4 02/02/2017 RBC 3.80 02/02/2017 HGB 11.7 02/02/2017 HCT 34.4 02/02/2017 MCV 90.4 02/02/2017 MCH 30.9 02/02/2017 MCHC 34.1 02/02/2017 PLT 173 02/02/2017 MPV 7.7 02/02/2017 CMP: Lab Results Component Value Date NA 138 02/02/2017 K 3.7 02/02/2017 CL 103 02/02/2017 CO2 28 02/02/2017 ANIONGAP 7 02/02/2017 BUN 17 02/02/2017 BCR 15.3 03/19/2013 BILITOT 0.7 02/02/2017 AST 25 02/02/2017 ALT 13 02/02/2017 EGFR >60 03/19/2013 BMP: Lab Results Component Value Date NA 138 02/02/2017 K 3.7 02/02/2017 CL 103 02/02/2017 CO2 28 02/02/2017 ANIONGAP 7 02/02/2017 BUN 17 02/02/2017 BCR 15.3 03/19/2013 EGFR >60 03/19/2013 BUN/Creatinine: Lab Results Component Value Date BUN 17 02/02/2017 LDH: Lab Results Component Value Date LDH 151 02/02/2017 LDH 152 03/19/2013 U/A: No results found for: CLARITYU, MEROPENEM, LEUKOCYTESUR, UROBILINOGEN, PHUR, BLOODU, KETONES, BILIRUBINUR, GLUCOSEU, EPIS HgBA1c: No results found for: LABGLYC ASSESSMENT & PLAN 1. Cholangiocarcinoma (HCC) Case Request - OR/ENDO/ASC/OB: CYSTOSCOPY URETERAL STENT stent removal and replacement 2. Obstruction of left ureter Case Request - OR/ENDO/ASC/OB: CYSTOSCOPY URETERAL STENT stent removal and replacement We discussed her options for decompression. Observation alone may lead to increasing renal dysfunction, pain, etc. She has been tolerating her stent well up until recently. Her CT also shows some question of decreased flow. Her options for decompression include percutaneous nephrostomy tube placement and ureteral stent exchange. We discussed the risks of general anesthesia (cardiac events, arrhythmia, de ath), stent migration, lower tract symptoms, stent obstruction, and need for periodic exchan ge. We also discussed the increased morbidity of an external collection back, pain at the PCN s ite, risks of hemorrhage, difficulty in placement of a PCN. We also discussed the ability to assess her obstruction with nephrostograms that is possibl e with PCN. Exchanges may also be performed with less anesthetic with a percutaneous nephro stomy tube. After long discussion, she has elected for left stent exchange. We will plan on this in e near future. Pedro Green DO 11/21/2018 documented in this e ncounter Miscellaneous Notes Op Note - Pedro Green DO - 11/29/2018 2:01 PM PDTOperative Note: Pre-operative Diagnosis: ureteral obstruction Post-operative Diagnosis: Same Procedure(s): cystoscopy, left ureteral stent removal, left retrograde pyelogram, left ure teral stent placement Surgeon: Pedro Green DO Metal Work Duct Installer(s): SWETA Anesthesia: General LMA Estimated Blood Loss: <10 cc Other: Not applicable Indications: See pre-operative history and physical. Findings: See dictation Complications: None Specimen: none Description: After informed consent was obtained from the patient, the patient was brought back to the o perative suite and placed on the operating table. After general anesthetic was administered and achieved, she was prepped and draped in sterile fashion in dorsal lithotomy position. Following a preoperative pause, 21.5-Azerbaijani cystoscope sheath with 30-degree lens was insert ed transurethrally under direct visualization. Upon entering the bladder, panendoscopy rev ealed normal urinary bladder except for a stent emanating from the left ureteral orifice. T his had very minimal stent encrustation done at this time and appeared to be in good positio n. At this point, it was grasped, withdrawn to the urethral meatus. At this point, the sco pe was reinserted adjacent to the stent and the ureteral orifice was cannulated adjacent to the stent. Retrograde pyelogram was performed. This was somewhat obstructed by the stent, in which case a stent was fully removed allowing for injection of contrast for retrograde p yelogram confirming continued stenosis within the distal ureter consistent with her previous treatments. At this point, a hydrophilic wire was placed through the ureteral catheter up to the upper collecting system, it was noted to coil nicely proximally within the renal paola ecting system. The ureteral catheter was removed, allowing for placement of 7-Azerbaijani x 24 cm ureteral stent without strings attached. This was advanced over top of the wire. It was noted to coil nicely proximally and distally upon removal of wire. Bladder was drained. T he scope was removed, leaving the stent in good position. The patient was transferred back to recovery in stable condition. She tolerated the procedure well. Disposition: Stable to PACU Pedro Green DO 11/29/2018 documented in this e ncounter Plan of Treatment +--------+---------+ + + + | Date | Type | Specialty | Care Team | Description | +--------+---------+ + + + | 10/29/ | Office | Urology | Pedro Green, | | | 2019 | Visit | | DO [address] [facility] | | | | | | [place] [address] | | | | | | [phone] | | | | | | | | +--------+---------+ + + + documented as of this encounter Procedures + +--------+ + + + | Procedure Name | Priori | Date/Time | Associated Diagnosis | Comments | | | ty | | | | + +--------+ + + + | [facility] Soler ARM | Routin | 11/29/2018 | | Results for this | | | e | 1:55 PM | | procedure are in the | | | | PDT | | results section. | + +--------+ + + + | CYSTOSCOPY URETERAL | | 11/29/2018 | Obstruction of | | | STENT | | 1:14 PM | left ureter | | | | | PDT | Cholangiocarcinoma | | | | | | (HCC) | | + +--------+ + + + documented in this encounter Results [facility] Soler-Mika (11/29/2018 1:55 PM PDT) + + | Specimen | + + | | + + + + + | Narrative | Performed At | + + + | This exam has been auto-finalized and the interpretation may exist | [facility] | | elsewhere in the chart. | | + + + + +---------+ + + | Performing | Address | City/State/Zipcode | Phone Number | | Organization | | | | + +---------+ + + | [facility] | | | | + +---------+ + + documented in this encounter Visit Diagnoses + + | Diagnosis | + + | Obstruction of left ureter | + + | 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 | + + documented in this encounter Admitting Diagnoses + + | Diagnosis | + + | Obstruction of left ureter | + + | 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 | + + documented in this encounter Administered Medications + +---------+ +------+------+------+ | Medication Order | MAR | Action | Dose | Rate | Site | | | Action | Date | | | | + +---------+ +------+------+------+ | balanced electrolytes in water | New Bag | 11/30/19 | | | | | (PLASMALYTE-148/NORMOSOL-R) | | 19 1:29 | | | | | infusion at 100 mL/hr, | | PM PDT | | | | | Intravenous, CONTINUOUS, Starting | | | | | | | 11/29/18 at 1230, Pre-op | | | | | | + +---------+ +------+------+------+ +---+---+ | | | +---+---+ + +-------+ +--------+---+---+ | fentaNYL (PF) injection 25-50 | Given | 11/30/19 | 25 mcg | | | | mcg 25-50 mcg, Intravenous, | | 19 2:34 | | | | | EVERY 5 MIN PRN, Pain, Initial | | PM PDT | | | | | postop medication for URGENT PAIN | | | | | | | OR ESCALATING PAIN, Starting Wed | | | | | | | 11/29/18 at 1403, For 4 doses, | | | | | | | First dose must be lowest dose. | | | | | | | Use Pasero Sedation Scale. | | | | | | | [Opioid tolerant = One week or | | | | | | | longer, mwefau-qnb-mahnh use of | | | | | | | at least the following DAILY | | | | | | | dose: 60mg oral morphine, 60mg | | | | | | | oral hydrocodone, 30mg oral | | | | | | | oxycodone, 8mg oral | | | | | | | hydromorphone, fentanyl patch | | | | | | | 25mcg/hr, or equivalent dose of | | | | | | | another opioid], Recovery/Phase I | | | | | | + +-------+ +--------+---+---+ +---+---+ | | | +---+---+ + +-------+ + +---+---+ | HYDROcodone-acetaminophen | Given | 11/30/19 | 1 tablet | | | | (NORCO) 7.5-325 mg per tablet 1 | | 19 3:28 | | | | | tablet 1 tablet, Oral, ONCE, Wed | | PM PDT | | | | | 11/29/18 at 1530, For 1 dose, | | | | | | | Post-op/Phase II | | | | | | + +-------+ + +---+---+ +---+---+ | | | +---+---+ + +-------+ +--------+---+---+ | iohexol (OMNIPAQUE 240) 240 | Given | 11/30/19 | 15 mLs | | | | mg/mL injection PRN, Starting | | 19 2:04 | | | | | 11/29/18 at 1404, Intra-op | | PM PDT | | | | + +-------+ +--------+---+---+ +---+---+ | | | +---+---+ documented in this encounter"
--- OUTSIDE RECORDS SUMMARY | ~2019-10-19 | XMS | Encounter Summary ---
Demographics + + + | Address | [address] | | | [place] [address] | + + + | Home Phone | | + + + | Preferred Language | Unknown | + + + | Marital Status | | + + + | Baptism Affiliation | Unknown | + + + | Race | White | + + + | Ethnic Group | Not or | + + + Author + + + | Author | [facility] | | | and [place] | + + + | Organization | [facility] | | | and [place] | + + + | Address | Unknown | + + + | Phone | Unavailable | + + + Support + + + + + | Name | Relationship | Address | Phone | + + + + + | Poncho Omar Oquendo | ECON | [address] | | | | | [place] | | | | | [address] | | + + + + + | Marta Upton | ECON | [place] | | | | | [address] | | + + + + + Care Team Providers + +------+ + | Care Tailing Machine Operator Name | Role | Phone | + +------+ + | No, Physician | PCP | Unavailable | + +------+ + Reason for Visit + +--------+ + | Reason | Onset | Comments | | | Date | | + +--------+ + | Follow-up | 04/29/ | | | | 2020 | | + +--------+ + Encounter Details +--------+ + + + + | Date | Type | Department | Care Team | Description | +--------+ + + + + | 04/29/ | Telephone | [facility] | Pedro Green, | Follow-up | | 2019 | | UROLOGY [address] | DO [address] | | | | | [address] | [place] [address] | | | | | [place], [place] | [phone] | | | | | [address] | | | | | | [phone] | | | +--------+ + + + [...] this encounter Miscellaneous Notes Telephone Encounter - Nikky Burr - 05/17/2019 10:25 AM PDTCalled patient and left vo icemail elephone Encount er - Nikky Burr - 05/02/2019 9:54 AM PDTCalled patient and left voicemail Electronic ally signed by Nikky Burr at 05/02/2019 9:54 AM PDTTelephone Encounter - Sandeep Burr - 04/30/2019 11:12 AM PDT Called patient left voicemail to schedule Pedro Green, Aura Karimi Sex: Female, 58 y.o., 1960 Address: [address] [place] [id number] Hm: [phone] Hm: [phone] Follow up in 4-5 months documented in this enco unter Plan of Treatment +--------+---------+ + + + | Date | Type | Specialty | Care Team | Description | +--------+---------+ + + + | 10/29/ | Office | Urology | Pedro Green, | | 2019 | Visit | | DO [address] | | | | | | [place] [address] | | | | | | [phone] | | | | | | | | +--------+---------+ + + + documented as of this encounter Visit Diagnoses Not on filedocumented in this encounter"
--- OUTSIDE RECORDS SUMMARY | ~2019-10-19 | XMS | Clinical Summary ---
Demographics + + + | Address | [address] | | | [place] [address] | + + + | Home Phone | | + + + | Preferred Language | Unknown | + + + | Marital Status | | + + + | Christianity Affiliation | Unknown | + + + | Race | White | + + + | Ethnic Group | Not or | + + + Author + + + | Author | [facility] | | | and [place] | + + + | Organization | [facility] | | | and [place] | + + + | Address | Unknown | + + + | Phone | Unavailable | + + + Support + + + + + | Name | Relationship | Address | Phone | + + + + + | Poncho Oquendo | ECON | [address] | | | | | [place] | | | | | [address] | | + + + + + | Marta Upton | ECON | [place] | | | | | [address] | | + + + + + Care Team Providers + +------+ + | Care Supervisor Tan Room Name | Role | Phone | + +------+ + | No, Physician | PCP | Unavailable | + +------+ + Allergies + + + + + + | Active Allergy | Reactions | Severity | Noted | Comments | | | | | Date | | + + + + + + | Ciprofloxacin | Diarrhea, Itching | | 07/05/19 | | | | | | 20 | | + + + + + [...] + +---------+------+------+-------+ | docusate sodium | Take 100 mg by mouth | | 0 | | | Activ | | (STOOL SOFTENER) 100 | 2 times daily. | | | | | e | | mg capsule | | | | | | | + + + +---------+------+------+-------+ | naloxone (NARCAN) | Instill 1 spray into | | 0 | 11/1 | | Activ | | 4 mg/nasal spray | nose as needed for | | | 05/03 | | e | | | suspected opioid | | | 18 [...] | | + + + +---------+------+------+-------+ | GRANIX 300 | | | 0 | 01/2 | | Activ | | MCG/0.5ML injection | | | | 1/20 | | e | | | | | | 19 | | | + + + +---------+------+------+-------+ | HYDROmorphone | Take by mouth every | | 0 | | | Activ | | (DILAUDID) 1 MG/ML | three hours as | | | | | e | | LIQD | needed. Indications: | | | | | | | | unknown | | | | | | + + + +---------+------+------+-------+ | LORazepam (ATIVAN) | Take 1.5 mg by | | 0 | 09/1 | | Activ | | 1 mg tablet | mouth. | | | 06/03 | | e | | | | | | 18 | | | + + + +---------+------+------+-------+ | ondansetron | Dissolve 4 mg on | | 0 | | | Activ | | (ZOFRAN ODT) 4 mg | tongue and swallow | | | | | e | | disintegrating | every twelve hours | | | | | | | tablet | as needed. | | | | | | | | Indications: unknown | | | | | | | | home dose | | | | | | + + + +---------+------+------+-------+ | | take 1 tablet by | | 0 | 03/0 | | Activ | | HYDROcodone-acetamin | mouth every 4 hours | | | 4/20 | | e | | ophen (NORCO) 10-325 | or 2 tablets by | | | 20 | | | | mg per tablet | mouth every 6 hours | | | | | | | | if needed for pain | | | | | | + + + +---------+------+------+-------+ | magnesium oxide | | | 0 | 09/2 | | Activ | | (MAG-OX) 400 mg | | | | 9/20 | | e | | tablet | | | | 19 | | | + + + +---------+------+------+-------+ | estradiol | insert 1 tablet | | 0 | 01/3 | | Activ | | (VAGIFEM) 10 mcg | vaginally two times | | | 0/20 | | e | | vaginal tablet | a week | | | 20 | | | + + + +---------+------+------+-------+ | polyethylene | Take 17 g by mouth | | 0 | | | Activ | | glycol (MIRALAX) | Daily. | | | | | e | | packet | | | | | | | + + + +---------+------+------+-------+ | fentaNYL | Place 1 patch onto | | 0 | 05/2 | | Activ | | (DURAGESIC) 100 | the skinevery 72 | | | 0/20 | | e | | mcg/hr | hours | | | 20 | | | + + + +---------+------+------+-------+ | ibuprofen | Take 1 tablet by | | 0 | | | Activ | | (ADVIL,MOTRIN) 600 | mouthevery 6 hours | | | | | e | | MG tablet | as needed | | | | | | + + + +---------+------+------+-------+ | dexamethasone | Take 1 tablet by | | 0 | 04/2 | | Activ | | (DECADRON) 4 mg | mouth2 times | | | 6/20 | | e | | tablet | dailyFor 2 days | | | 20 | | | | | after chemotherapy | | | | | | + + + +---------+------+------+-------+ | domperidone 10 mg | Take 1 tablet by | | 0 | | | Activ | | capsule | mouth4 times daily | | | | | e | + + + +---------+------+------+-------+ | HYDROmorphone, PF, | Inject 2 Doses into | | 0 | | | Activ | | (DILAUDID-HP) 10 | the veinevery hour | | | | | e | | mg/mL injection | as neededTwo doses | | | | | | | | available per hour | | | | | | + + + +---------+------+------+-------+ | sterile water QS | Inject into the vein | | 0 | | | Activ | | Base with amino | Daily | | | | | e | | acids 15% SOLN 1 | | | | | | | | g/kg, dextrose 70% | | | | | | | | SOLN 2.5 g/kg, | | | | | | | | sodium chloride 4 | | | | | | | | mEq/mL (23.4%) SOLN | | | | | | | | 40 mEq, sodium | | | | | | | | acetate 2 mEq/mL | | | | | | | | SOLN 40 mEq, | | | | | | | | potassium chloride 2 | | | | | | | | mEq/mL SOLN 30 mEq, | | | | | | | | potassium phosphate | | | | | | | | 3 mmol/mL SOLN 15 | | | | | | | | mmol, magnesium | | | | | | | | sulfate 500 mg/mL | | | | | | | | SOLN 12 mEq, calcium | | | | | | | | gluconate 10 % SOLN | | | | | | | | 8 mEq, adult | | | | | | | | multivitamin INJ 10 | | | | | | | | mL, trace elements | | | | | | | | adult 0.01-1-0.5-5 | | | | | | | | MG/ML SOLN 0.5 mL | | | | | | | + + + +---------+------+------+-------+ | sodium chloride | Inject into the vein | | 0 | | | Activ | | 0.9% (NS) bolus | Three times a week | | | | | e | | | IV Hydration | | | | | | + + + +---------+------+------+-------+ Active Problems + + + | Problem | Noted Date | + + + | Obstruction of left ureter | 11/21/2018 | + + + | CRBSI (catheter-related bloodstream infection) | 12/27/2017 | + + + | Moderate protein-calorie malnutrition | 12/26/2017 | + + + | JULY (acute kidney injury) | 12/24/2017 | + + + | Bacteremia due to Klebsiella pneumoniae | 12/24/2017 | + + + | Chronic use of opiate drugs therapeutic purposes | 12/24/2017 | + + + + + | Overview: Problem List [employer] | + + + + + | Gastrostomy tube in place | 12/24/2017 | + + + | Hx of small bowel obstruction | 12/24/2017 | + + + | Insomnia | 12/24/2017 | + + + | Neoplasm related pain (acute) (chronic) | 10/31/2014 | + + + + + | Overview: 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 [[place] | | Health and Services Provider Handbook of Operational Guidelines | | (2015), fourth edition, page 45]. | + + + + + | Gallbladder cancer, carcinoma | 06/26/2014 | + + + + + | Overview: ACTIVE DIAGNOSES: Recurrent cholangiocarcinoma.1. | | Presentation with biliary colic in 2012. Status post | | cholecystectomy and liver biopsy by Dr. Brandon Garcia on | | 03/29/2012. Pathological specimen [id number] was analyzed by | | Liu Bowers M.D. of [facility] and was notable | | for a poorly-differentiated adenocarcinoma of the gallbladder. | | Liver biopsy was performed at the same time of the procedure and | | demonstrated portal inflammation.2. On 04/26/2012, she | | successfully underwent a R0 resection by Dr. Tai Stanton, of | | the [facility]. Pathological specimen | | [id number] was notable for the absence of any residual | | carcinoma within the gallbladder bed; however, 2/8 regional lymph | | nodes were positive for regionally metastatic disease.3. | | Consultation with Dr. Elva Grey of the [facility] | | [facility] on 05/17/2012, which returned the | [...] Dr. Miguel Henderson of the | | [facility] [place]. 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 However, 122 of the remaining genes | | analyzed in the assay were all wild type.7. Repeat consultation | | with Dr. Elva Grey of the [facility] | | on 06/26/2014 returned the recommendation for additional | | chemotherapy with cisplatin at 75 mg/m2 on day 1 with gemcitabine | | at 1250 mg/m2 on day-1 and day-8 of the every 21-day cycle for | | 6-8 cycles. This was followed by a second opinion by Dr. Quiroz | | Jeovany of the [facility] [place] who recommended | | chemotherapy with cisplatin [...] recommendations of Dr. Richie Thayer of the [facility] | | [place] with gemcitabine at 1000 mg/m2 on day-1 and day-8 with | | cisplatin 25 mg/m2 on day-1 and day-8 of the every 21-day cycle, | | beginning on 07/26/2014. Chemotherapy was complicated by grade 3 | | neutropenia without fever a grade 3 thrombocytopenia without | | bleeding.10. Repeat CT scan of the abdomen and pelvis on | | 09/16/2014 at the [facility] in [facility] | | [place], demonstrated stable postoperative changes involving | | [...] the chest, abdomen, and pelvis at the [facility] in [place], [place], | | demonstrated stable postoperative changes [...] abdomen, and | | pelvis at the [facility] in [place], [place], on | | 06/23/2015 demonstrating postoperative changes in the right upper | | quadrant. No evidence of recurrence or any evidence of | | metastatic disease.15. Repeat CT scan of the chest, abdomen, and | | pelvis at the [facility] in [place], [place], on | | 09/24/2015 demonstrating right upper quadrant post-surgical | | changes. No evidence of recurrent neoplasm. Interval development | | of a small hernia containing bowel and fat 3 cm above the | | umbilicus.16. Repeat CT scan of the abdomen and pelvis on | | 12/22/2015 at the [facility] in [place], [place], | | demonstrating a 1.5 cm soft tissue nodule just inferior to the | | liver within the mesentery on the right. In addition, there were | | tiny nodules in the bilateral upper quadrants.17. PET CT scan at | | [facility] in [place], [place], on 12/31/2015 | | demonstrating benign findings. The nodularity along the omental | | fat along the left colon and liver tail showed no abnormal | | uptake.18. Presentation to the [facility] Emergency | | Room on 03/15/2016 [...] | Repeat CT scan of C/A/P at [facility] on July 01, 2016 | | demonstrated interval resolution of all but one of the liver | | metastases (5.8 mm remnant), and decrease in size of two omental | | metastases.21. She completed 6 cycles of cisplatin and | | gemcitabine chemotherapy with growth factor support on August 09 | | 2016.22. She crossed over to another period of observation | | without treatment. Repeat CT scan of the abdomen and pelvis with | | contrast, October 06, 2016, at [facility] in [facility] | | [place], demonstrated no evidence of recurrence or metastatic | | disease. Aura continued on observation without treatment.23. | | Repeat CT scan of the chest/abdomen/pelvis at [facility] demonstrated progression of disease and | [...] will see Dr. Richie Thayer at the [facility] | [facility] [place]. 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 Followed by | | Ellyn at [facility] in [place]. | | -04/26/2012: R0 Resection. -05/31/2012-09/03/2012 | | Chemotherapy: Xeloda/gemictabine x4 cycles. | | -10/04/2012: XRT with Xeloda -06/07/2014: relapse s/p | | complete resection. -07/29/2014-11/29/2014 | | Chemotherapy: Cisplatin/Gemcitabine -03/15/2016: | | Relapse -04/12/2016-08/09/2016 Chemotherapy: | | Cisplatin/Gemcitabine x6 cycles | | -02/25/2017-04/06/2017 Immunotherapy: Pembolizumab x4. | | -05/20/2017 Palliative Chemotherapy: Cisplatin/Gemcitabine Q3 | | weeks. | + + + + + | LUMBAGO | 09/24/2011 | + + + | DEGENERATIVE DISC DISEASE, LUMBAR SPINE | 09/24/2011 | + + + | OSTEOARTHRITIS, LUMBOSACRAL SPINE | 09/24/2011 | + + + | SENSORY HEARING LOSS UNILATERAL | 07/06/2011 | + + + | OBESITY | 03/12/2011 | + + + | Perforation of nasal septum | 06/03/2008 | + + + | LOW BACK [...] | +--------+ + + + + | 09/16/ | Telephone | Urology | Pedro Green, | Appointment | | 2019 | | | DO | (Reschedule 09/17 | | | | | | f/u) | +--------+ + + + + | 08/27/ | Refill | Oncology | Vladimir Robles, | Medication Refill | | 2019 | | | MD | | +--------+ + + + + | 07/31/ | Hospital | Oncology | Vladimir Robles, | Gallbladder cancer, | | 2019 | Encounter | | MD | carcinoma (HCC) | | | | | | (Primary Dx) | +--------+ + + + + | 07/31/ | Hospital | Infusion Therapy | Vladimir Robles, | Gallbladder cancer, | | 2020 | Encounter | | MD | carcinoma (HCC) | | | | | | (Primary Dx) | +--------+ + + + + from Last 3 Months Immunizations + + + + | Name | Administration Dates | Next Due | + + + + | INFLUENZA PF | 11/22/2018, 12/27/2017, 01/31/2017, | | | QUAD(PED/ADOL/ADULT) | 03/08/2016 | | | ,PSKT or VIAL | | | + + + + | INFLUENZA QUADR | 12/18/2013 | | | W/PRES | | | | (PED/ADOL/ADULT) | | | | MULTIDOSE | | | + + + + | INFLUENZA TRIV | 2012 | | | W/PRES(PED/ADOL/ADUL | | | | T),MULTIDOSE | | | + + + + | INFLUENZA, [id number], | 04/14/2009 | | | UNSPECIFIED | | | + + + + | INFLUENZA, | 12/02/2009, 04/14/2009 | | | UNSPECIFIED | | | | FORMULATION | | | + + + + | PNEUMOCOCCAL | 12/10/2002 | | | POLYSACCHARIDE | | | | 23-VALENT (PPSV23) | | | + + + + | TDAP, (ADOL/ADULT) | 02/04/2011 | | + + + + Family History + + +------+ + | Medical History | Relation | Name | Comments | + + +------+ + | Malig hypertherm | Neg Hx | | | + + +------+ + Social History + + + +--------+ + | Tobacco Use | Types | Packs/Day | Years | Date | | | | | Used | | + + + +--------+ + | Former Smoker | Cigarettes | 0.5 | 23 | Quit: 2007 | + + + +--------+ + + [...] + + + | Blood Pressure | 93/50 | 08/01/2019 9:12 AM | | | | | PDT | | + + + + + | Pulse | 97 | 08/01/2019 9:12 AM | | | | | PDT | | + + + + + | Temperature | 37.3 C (99.2 F) | 08/01/2019 9:12 AM | | | | | PDT | | + + + + + | Respiratory Rate | 16 | 08/01/2019 9:12 AM | | | | | PDT | | + + + + + | Oxygen Saturation | 100% | 08/01/2019 9:12 AM | | | | | PDT | | + + + + + | Inhaled Oxygen | - | - | | | Concentration | | | | + + + + + | Weight | 61.8 kg (136 lb 3.9 | 08/01/2019 9:12 AM | | | | oz) | PDT | | + + + + + | Height | 160 cm (5' 3") | 04/27/2019 9:01 AM | | | | | PDT | | + + + + + | Body Mass Index | 24.13 | 04/27/2019 9:01 AM | | | | | PDT | | + + + + + Plan of Treatment +--------+---------+ + + + | Date | Type | Specialty | Care Team | Description | +--------+---------+ + + + | 10/29/ | Office | Urology | Pedro Green, | | | 2019 | Visit | | DO [address] | | | | | | [place] [address] | | | | | | [phone] | | | | | | | | +--------+---------+ + + + + + + + + | Health Maintenance | Due Date | Last | Comments | | | | Done | | + + + + + | Urine Drug Screening | | | | | | 8 | | | + + + + + | Vaccine: | | 12/11/19 | | | Pneumococcal 19-64 | 4 | 03 | | | (2 of 3 - PCV13) | | | | + + + + + | Vaccine: Zoster (1 | | | | | of 2) | 2 | | | + + + + + | Cervical Cancer | | 05/06/19 | | | Screening (Pap) | 6 | 11 | | + + + + + | Breast Cancer | | 08/11/19 | | | Screening | 8 | 16, | | | | | 11/14/19 | | | | | 13, | | | | | 07/01/19 | | | | | 12, | | | | | Addition | | | | | al | | | | | history | | | | | exists | | + + + + + | Vaccine: Influenza | | 11/23/19 | | | (#1) | 0 | 19, | | | | | 12/28/19 | | | | | 18, | | | | | 02/01/20 | | | | | 17, | | | | | Addition | | | | | al | | | | | history | | | | | exists | | + + + + + | Med Mgmt: BUN | | 08/01/19 | | | | 1 | 20, | | | | | 02/03/20 | | | | | 17, | | | | | 08/07/19 | | | | | 17, | | | | | Addition | | | | | al | | | | | history | | | | | exists | | + + + + + | Med Mgmt: Cr | | 08/01/19 | | | | 1 | 20, | | | | | 02/03/20 | | | | | 17, | | | | | 08/07/19 | | | | | 17, | | | | | Addition | | | | | al | | | | | history | | | | | exists | | + + + + + | Medication | | 08/01/19 | | | Management | 1 | 20 | | + + + + + | Vaccine: | | 02/05/20 | | | Dtap/Tdap/Td (2 - | 1 | 11 | | | Td) | | | | + + + + + | Colorectal Cancer | | 02/14/19 | | | Screening | 4 | 14 | | | (Colonoscopy) | | | | + + + + + | Hepatitis C | Completed | 09/17/19 | | | Screening | | 15 | | + + + + + Implants + +-------+--------+ +--------+--------+--------+ | Implanted | Type | Area | Manufacture | Device | Shelf | Model | | | | | r | | Expira | / | | | | | | Identi | tion | Serial | | | | | | fier | Date | / Lot | + +-------+--------+ +--------+--------+--------+ | Stent Uro Unvrs Frm 7fr 24cm | Stent | | ROBERT | | 06/28/ | [id number] | | - SnaImplanted: Qty: 1 on | | | [employer] | | 2020 | /NA | | 11/29/2018 by Pedro Green | | | - ROBERT | | | [id number] | | DO [place] at [facility] | | | | [facility] | 02 [facility] | | | | | | | + +-------+--------+ +--------+--------+--------+ | [employer] Ureteral Stent | Stent | Left: | COOK | | 09/06/ | [facility] | | And PositionerImplanted: Qty: | | Ureter | [employer] | | 2021 | 4-R, | | 1 on 04/27/2019 by Peter, | | | - ROBERT | | | [id number] | | Pedro Aparicio DO at [facility] | | | | | | /NA | | | | | | | | /[id number] | | | | | | | | 29 | + +-------+--------+ +--------+--------+--------+ | Stent Uro Unvrs Frm 7fr 24cm | | Left: | COOK | | 11/12/ | [id number] | | - SnaImplanted: Qty: 1 on | | Ureter | [employer] | | 2019 | /NA | | 07/05/2018 by Pedro Green | | | - ROBERT | | | /[id number] | | DO [place] | | | | | | 79 | + +-------+--------+ +--------+--------+--------+ Procedures + +--------+ + + + | Procedure Name | Priori | Date/Time | Associated Diagnosis | Comments | | | ty | | | | + +--------+ + + + | CBC WITH | STAT | 08/01/2019 | Gallbladder | Results for this | | DIFFERENTIAL | | 9:02 AM | cancer, carcinoma | procedure are in the | | | | PDT | (HCC) | results section. | + +--------+ + + + | LACTATE | STAT | 08/01/2019 | Gallbladder | Results for this | | DEHYDROGENASE | | 9:02 AM | cancer, carcinoma | procedure are in the | | | | PDT | (HCC) | results section. | + +--------+ + + + | CA 19-9, QUANT | STAT | 08/01/2019 | Gallbladder | Results for this | | | | 9:02 AM | cancer, carcinoma | procedure are in the | | | | PDT | (HCC) | results section. | + +--------+ + + + | CEA | STAT | 08/01/2019 | Gallbladder | Results for this | | | | 9:02 AM | cancer, carcinoma | procedure are in the | | | | PDT | ([facility]) | results section. | + +--------+ + + + | COMPREHENSIVE | STAT | 08/01/2019 | Gallbladder | Results for this | | METABOLIC PANEL | | 9:02 AM | cancer, carcinoma | procedure are in the | | | | PDT | ([facility]) | results section. | + +--------+ + + + from Last 3 Months Results CA 19-9, Quant (08/01/2019 9:02 AM PDT) + + + + + + | Component | Value | Ref Range | Performed | Pathologist | | | | | At | Signature | + + + + + + | CA 19-9 | 18Comment: Radha | 0 - 35 U/mL | REFERENCE | | | | Diagnostics | | LAB [facility] | | | | Electrochemiluminescence | | - [facility]KR | | | | Immunoassay | | | | | | (ECLIA)Values obtained | | | | | | with different assay | | | | | | methods or kits cannot | | | | | | beused interchangeably. | | | | | | Results cannot be | | | | | | interpreted as | | | | | | absoluteevidence of the | | | | | | presence or absence of | | | | | | malignant disease. | | | | + + + + + + + + | Specimen | + + | Blood | + + + + + | Narrative | Performed At | + + + | Performed at: [address] [address], | REFERENCE LAB | | [place], [place] [id number] Circulation Representative: Ad Larose MD, Phone: | [facility] | | [phone] | | + + + + + + + + | Performing | Address | City/State/Zipcode | Phone Number | | Organization | | | | + + + + + | REFERENCE LAB | [address] | [place], [place] | [phone] | | [facility] | [facility] | [address] | | + + + + + CBC with Differential (08/01/2019 9:02 AM PDT) + + + + + + | Component | Value | Ref Range | Performed | Pathologist | | | | | At | Signature | + + + + + + | White Blood | 8.0 | 4.0 - 11.0 K/uL | [facility] | | | Cells | | | [facility] | | | | | | MEDICAL | | | | | | CENTER - | | | | | | LABORATORY | | + + + + + + | Red Blood | 3.40 (L) | 3.70 - 5.20 | [facility] | | | Cells | | M/uL | [facility] | | | | | | MEDICAL | | | | | | CENTER - | | | | | | LABORATORY | | + + + + + + | Hemoglobin | 10.3 (L) | 11.5 - 16.0 | [facility] | | | | | g/dL | [facility] | | | | | | MEDICAL | | | | | | CENTER - | | | | | | LABORATORY | | + + + + + + | Hematocrit | 31.0 (L) | 34.0 - 47.0 % | [facility] | | | | | | [facility] | | | | | | MEDICAL | | | | | | CENTER - | | | | | | LABORATORY | | + + + + + + | MCV | 91.2 | 83.0 - 101.0 fL | [facility] | | | | | | [facility] | | | | | | MEDICAL | | | | | | CENTER - | | | | | | LABORATORY | | + + + + + + | MCH | 30.3 | 28.0 - 35.0 pg | [facility] | | | | | | [facility] | | | | | | MEDICAL | | | | | | CENTER - | | | | | | LABORATORY | | + + + + + + | MCHC | 33.2 | 32.0 - 36.0 | [facility] | | | | | g/dL | [facility] | | | | | | MEDICAL | | | | | | CENTER - | | | | | | LABORATORY | | + + + + + + | RDW-CV | 14.9 | <15.0 % | [facility] | | | | | | [facility] | | | | | [facility] | | | | | | CENTER - | | | | | | LABORATORY | | + + + + + + | RDW-SD | 50.0 (H) | 35.1 - 46.3 fL | [facility] | | | | | | [facility] | | | | | | MEDICAL | | | | | | CENTER - | | | | | | LABORATORY | | + + + + + + | Platelet | 290 | 140 - 440 K/uL | [facility] | | | Count | | | [facility] | | | | | | MEDICAL | | | | | | CENTER - | | | | | | LABORATORY | | + + + + + + | MPV | 10.9 | 6.5 - 12.4 fL | [facility] | | | | | | [facility] | | | | | | MEDICAL | | | | | | CENTER - | | | | | | LABORATORY | | + + + + + + | % | 58.3 | 45.0 - 82.0 % | [facility] | | | Neutrophils | | | [facility] | | | | | | MEDICAL | | | | | | CENTER - | | | | | | LABORATORY | | + + + + + + | % | 23.3 | 20.0 - 45.0 % | [facility] | | | Lymphocytes | | | [facility] | | | | | | MEDICAL | | | | | | CENTER - | | | | | | LABORATORY | | + + + + + + | % Monocytes | 12.1 (H) | 4.0 - 12.0 % | [facility] | | | | | | [facility] | | | | | | MEDICAL | | | | | | CENTER - | | | | | | LABORATORY | | + + + + + + | % | 4.5 | 0.0 - 5.0 % | [facility] | | | Eosinophils | | | [facility] | | | | | | MEDICAL | | | | | | CENTER - | | | | | | LABORATORY | | + + + + + + | % Basophils | 1.3 (H) | 0.0 - 1.0 % | [facility] | | | | | | [facility] | | | | | | MEDICAL | | | | | | CENTER - | | | | | | LABORATORY | | + + + + + + | % Immature | 0.5 (H)Comment: | 0.0 - 0.4 % | [facility] | | | Granulocyte | Preliminary studies have | | [facility] | | | s | indicated the IG% | | MEDICAL | | | | and/or IG# show promise | | CENTER - | | | | as an early indicator | | LABORATORY | | | | for infection. | | | | + + + + + + | Absolute | 4.66 | 1.80 - 8.50 | [facility] | | | Neutrophils | | K/uL | [facility] | | | | | | MEDICAL | | | | | | CENTER - | | | | | | LABORATORY | | + + + + + + | Absolute | 1.86 | 0.60 - 3.20 | [facility] | | | Lymphocytes | | K/uL | [facility] | | | | | | MEDICAL | | | | | | CENTER - | | | | | | LABORATORY | | + + + + + + | Absolute | 0.97 | 0.00 - 1.00 | [facility] | | | Monocytes | | K/uL | [facility] | | | | | | MED[facility] | | | | | | CENTER - | | | | | | LABORATORY | | + + + + + + | Absolute | 0.36 | 0.00 - 0.40 | [facility] | | | Eosinophils | | K/uL | [facility] | | | | | | [facility]ICAL | | | | | | CENTER - | | | | | | LABORATORY | | + + + + + + | Absolute | 0.10 | 0.00 - 0.10 | [facility] | | | Basophils | | K/uL | [facility] | | | | | | MEDICAL | | | | | | CENTER - | | | | | | LABORATORY | | + + + + + + | Absolute | 0.04 (H) | 0.00 - 0.03 | [facility] | | | Immature | | K/uL | [facility] | | | Granulocyte | | | MEDICAL | | | s | | | CENTER - | | | | | | LABORATORY | | + + + + + + | % nRBC | 0 | 0 - 2 per 100 | [facility] | | | | | WBCs | [facility] | | | | | | MEDICAL | | | | | | CENTER - | | | | | | LABORATORY | | + + + + + + | Absolute | 0.00 | 0.00 - 0.01 | [facility] | | | nRBC | | K/uL | [facility] | | | | | | MEDICAL | | | | | | CENTER - | | | | | | LABORATORY | | + + + + + + + + | Specimen | + + | Blood | + + + + + + + | Performing | Address | City/State/Zipcode | Phone Number | | Organization | | | | + + + + + | [facility] | [address] | [place] | [phone] | | [facility] | | [address] | | | - LABORATORY | | | | + + + + + Lactate Dehydrogenase (08/01/2019 9:02 AM PDT) + + + + + + | Component | Value | Ref Range | Performed | Pathologist | | | | | At | Signature | + + + + + + | LDH TOTAL | 156Comment: New method | 120 - 246 U/L | [facility] | | | | in use as of March | | [facility] | | | | 2018. Check | | MEDICAL | | | | reference range for | | CENTER - | | | | changes.Some analytes | | LABORATORY | | | | show significant | | | | | | variation from the | | | | | | previous method.It may | | | | | | be necessary to set a | | | | | | new baseline for this | | | | | | analyte. | | | | + + + + + + + + | Specimen | + + | Blood | + + + + + + + | Performing | Address | City/State/Zipcode | Phone Number | | Organization | | | | + + + + + | [facility] | [address] | [place] | [phone] | | [facility] | | [address] | | | - LABORATORY | | | | + + + + + CEA (08/01/2019 9:02 AM PDT) + + + + + + | Component | Value | Ref Range | Performed | Pathologist | | | | | At | Signature | + + + + + + | CEA | 0.9Comment: New method | 0.0 - 10.0 | [facility] | | | | in use as of March | ng/mL | [facility] | | | | 2018. Check | | MEDICAL | | | | reference range for | | CENTER - | | | | changes.Some analytes | | LABORATORY | | | | show significant | | | | | | variation from the | | | | | | previous method.It may | | | | | | be necessary to set a | | | | | | new baseline for this | | | | | | analyte. | | | | + + + + + + + + | Specimen | + + | Blood | + + + + + + + | Performing | Address | City/State/Zipcode | Phone Number | | Organization | | | | + + + + + | [facility] | [address] | [place] | [phone] | | [facility] | | [address] | | | - LABORATORY | | | | + + + + + Comprehensive Metabolic Panel (08/01/2019 9:02 AM PDT) + + + + + + | Component | Value | Ref Range | Performed | Pathologist | | | | | At | Signature | + + + + + + | Na | 136 | 136 - 145 | [facility] | | | | | mmol/L | [facility] | | | | | | MEDICAL | | | | | | CENTER - | | | | | | LABORATORY | | + + + + + + | K | 3.6 | 3.4 - 5.1 | [facility] | | | | | mmol/L | [facility] | | | | | | MEDICAL | | | | | | CENTER - | | | | | | LABORATORY | | + + + + + + | Cl | 103 | 98 - 107 mmol/L | [facility] | | | | | | [facility] | | | | | | MEDICAL | | | | | | CENTER - | | | | | | LABORATORY | | + + + + + + | CO2 | 24 | 20 - 31 mmol/L | [facility] | | | | | | [facility] | | | | | | MEDICAL | | | | | | CENTER - | | | | | | LABORATORY | | + + + + + + | Anion Gap | 9 | 3 - 16 mmol/L | [facility] | | | | | | [facility] | | | | | | MEDICAL | | | | | | CENTER - | | | | | | LABORATORY | | + + + + + + | Glucose | 107 (H) | 60 - 106 mg/dL | [facility] | | | | | | [facility] | | | | | | MEDICAL | | | | | | CENTER - | | | | | | LABORATORY | | + + + + + + | BUN | 33 (H) | 9 - 23 mg/dL | [facility] | | | | | | [facility] | | | | | | MEDICAL | | | | | | CENTER - | | | | | | LABORATORY | | + + + + + + | Creatinine | 0.97 | 0.55 - 1.02 | [facility] | | | | | mg/dL | [facility] | | | | | | MEDICAL | | | | | | CENTER - | | | | | | LABORATORY | | + + + + + + | eGFR, | 59 (L)Comment: | >=60 | [facility] | | | non- | GLOMERULAR FILTRATION | mL/min/1.73m2 | [facility] | | | Prydeinig | RATE,ESTIMATED | | MEDICAL | | | | mL/min/1.48f7Tizk than | | CENTER - | | | | 60 Chronic kidney | | LABORATORY | | | | disease,if found over a | | | | | | 3-month period.Less than | | | | | | 15 Kidney failureFor | | | | | | | | | | | | Americans,multiply the | | | | | | calculated GFR by 1.21. | | | | | | | | | | + + + + + + | Calcium | 8.8 | 8.7 - 10.4 | [facility] | | | | | mg/dL | [facility] | | | | | | MEDICAL | | | | | | CENTER - | | | | | | LABORATORY | | + + + + + + | Albumin | 3.5 | 3.2 - 4.8 g/dL | [facility] | | | | | | [facility] | | | | | | [facility]ICAL | | | | | | CENTER - | | | | | | LABORATORY | | + + + + + + | Bilirubin | 0.4 | 0.3 - 1.2 mg/dL | [facility] | | | Total | | | [facility] | | | | | | MEDICAL | | | | | | CENTER - | | | | | | LABORATORY | | + + + + + + | Total | 6.9 | 5.7 - 8.2 g/dL | [facility] | | | Protein | | | [facility] | | | | | | MEDICAL | | | | | | CENTER - | | | | | | LABORATORY | | + + + + + + | AST | 25 | 0 - 34 U/L | [facility] | | | | | | [facility] | | | | | | MEDICAL | | | | | | CENTER - | | | | | | LABORATORY | | + + + + + + | ALT | 14 | 10 - 49 U/L | [facility] | | | | | | [facility] | | | | | | MEDICAL | | | | | | CENTER - | | | | | | LABORATORY | | + + + + + + | Alkaline | 164 (H) | 46 - 116 U/L | [facility] | | | Phosphatase | | | [facility] | | | | | | MEDICAL | | | | | | CENTER - | | | | | | LABORATORY | | + + + + + + | Globulin | 3.4 | 2.1 - 3.8 g/dL | [facility] | | | | | | [facility] | | | | | | MEDICAL | | | | | | CENTER - | | | | | | LABORATORY | | + + + + + + | Albumin/Sakina | 1.0 | 0.8 - 1.9 | [facility] | | | bulin Ratio | | | [facility] | | | | | | MEDICAL | | | | | | CENTER - | | | | | | LABORATORY | | + + + + + + | BUN/Creatin | 34.0 | | [facility] | | | ine Ratio | | | [facility] | | | | | | MEDICAL | | | | | | CENTER - | | | | | | LABORATORY | | + + + + + + + + | Specimen | + + | Blood | + + + + + + + | Performing | Address | City/State/Zipcode | Phone Number | | Organization | | | | + + + + + | [facility] | [address] | [place] | [phone] | | [facility] | | [address] | | | - LABORATORY | | | | + + + + + from Last 3 Months Insurance + +--------+ +--------+-------+---------+--------+ | Payer | Benefi | Subscriber | Effect | Phone | Address | Type | | | t Plan | ID | [id number] | | | | | | / | | Dates | | | | | | Group | | | | | | + +--------+ +--------+-------+---------+--------+ | BCBS | BCBS | [id number] | 02/14/19 | | | PPO | | | FEDERA | | 16-Pre | | | | | | L FEP | | sent | | | | + +--------+ +--------+-------+---------+--------+ | BCBS | BCBS | [id number] | 02/14/19 | | | PPO | | | [place] | | 16-Pre | | | | | | L FEP | | sent | | | | + +--------+ +--------+-------+---------+--------+ | [employer] | [employer] | [id number] | 02/14/19 | | | Indemn | | SERVICE | YELLOW | | 13-Pre | | | ity | | | HAWK | | sent | | | | + +--------+ +--------+-------+---------+--------+ | [employer] | [employer] | [id number] | 02/14/19 | | | Indemn | | SERVICE | YELLOW | | 19-Pre | | | ity | | | HAWK | | sent | | | | + +--------+ +--------+-------+---------+--------+ + +--------+ +--------+ + + | Guarantor Name | Accoun | Relation to | Date | Phone | Billing Address | | | t Type | Patient | of | | | | | | | | | | + +--------+ +--------+ + + | Aura Upton | Person | Self | [birth year] | [address] | | | al/Fam | | 1961 | [phone] | [place] [address] | | | jose alejandro | | | 5 (Home) | | | | | | | [phone] | | | | | | | 6 (Work) | | + +--------+ +--------+ + + | Aura Upton | Person | Self | [birth year] | | [address] | | | al/Fam | | 1961 | [phone] | [place] [address] | | | jose alejandro | | | 5 (Home) | | + +--------+ +--------+ + + | Aura Upton | Person | Self | [birth year] | [address] | | | al/Fam | | 1961 | [phone] | [place] [address] | | | jose alejandro | | | 5 (Home) | | + +--------+ +--------+ + + Advance Directives + + + + + | Type | Date Recorded | Patient | Explanation | | | | Nurse Extern | | + + + + + | Power of | | | | | Yarn Conditioner | | | | + + + + + | Advance | 11/27/2018 | | | | Directive | 9:35 AM | | | + + + + + + + + + + | Code Status | Date | Date | Comments | | | Activated | Inactivated | | + + + + + | Full Code | 04/27/2019 | 04/28/2019 | | | | 10:17 AM | 2:14 AM | | + + + + + + + + +---+ | | | | | + + + +---+ | Full Code | 11/29/2018 | 11/29/2018 | | | | 2:52 PM | 6:06 PM | | + + + +---+
--- OUTSIDE RECORDS SUMMARY | ~2019-10-19 | XMS | Encounter Summary ---
Demographics + + + | Address | [address] | | | [place] [address] | + + + | Home Phone | | + + + | Preferred Language | Unknown | + + + | Marital Status | Single | + + + | Methodist Affiliation | NON | + + + | Race | White | + + + | Ethnic Group | Not or | + + + Author + + + | Author | [facility] | + + + | Organization | [facility] | + + + | [...] Team Providers + +------+ + | Care Chief Of Surgery Name | Role | Phone | + +------+ + | Tomasa Wagner | PCP | | + +------+ + Reason for Visit + + + | Reason | Comments | + + + | Return Patient | | + + + Benefits Check (Routine) +--------+--------+ + + + + | Status | Reason | Specialty | Diagnoses / | Referred By | Referred To | | | | | Procedures | Contact | Contact | +--------+--------+ + + + + | Closed | | Surgery | | Non-[facility] | Gs General | | | | | | Epic Dept | [facility] | | | | | | | [address] | | | | | | | [facility] | | | | | | | for Health | | | | | | | and Healing, | | | | | | | [address] | | | | | | | [place], [place] | | | | | | | [address] | | | | | | | Phone: | | | | | | | [phone] | | | | | | | Fax: | | | | | | | [phone] | +--------+--------+ + + + + Encounter Details +--------+---------+ + + + | Date | Type | Department | Care Team | Description | +--------+---------+ + + + | 11/01/ | Office | Digestive Health | Tai Stanton, | Gallbladder | | 2012 | Visit | [facility] at [facility] [address] | MD [address] | carcinoma (HCC) | | | | [facility] | [address] | (Primary Dx) | | | | for Health and | [place], [place] | | | | | [facility] | [address] | | | | | [place], [place] | [phone] | | | | | [address] | | | | | | [phone] | | | +--------+---------+ + + + Social History + + [...] + + + | Blood Pressure | 107/69 | 11/01/2012 2:25 PM | | | | | PDT | | + + + + + | Pulse | 80 | 11/01/2012 2:25 PM | | | | | PDT | | + + + + + | Temperature | 36.6 C (97.9 F) | 11/01/2012 2:25 PM | | | | | PDT | | + + + + + | Respiratory Rate | 16 | 11/01/2012 2:25 PM | | | | | PDT | | + + + + + | Oxygen Saturation | - | - | | + + + + + | Inhaled Oxygen | - | - | | | Concentration | | | | + + + + + | Weight | 79.2 kg (174 lb 11.2 | 11/01/2012 2:25 PM | | | | oz) | PDT | | + + + + + | Height | 162.6 cm (5' 4") | 11/01/2012 2:25 PM | | | | | PDT | | + + + + + | Body Mass Index | 29.99 | 11/01/2012 2:25 PM | | | | | PDT | | + + + + + documented in this encounter Progress Notes Tai Stanton MD - 11/07/2012 10:47 AM MIRIAMI saw and evaluated the patient. I agree with the findings and the plan of care as documented in the resident s note. Tai Stanton M.D. [employer] ([facility]) Professor and Vice-Director Of Procurement of Surgery [facility] Pancreatic Disease Research Pancreatic/ HepatoBiliary and Foregut Working Groups Office email: [email or web address] Smitha Ngo Md - 11/01/2012 2:59 PM PDT The Department of Surgery Clinic Follow-Up Visit: Author: Smitha Loomis MD Attending Physician: Trista 11/01/2012, 2:59 PM ID: Aura Upton is a 51 y.o. female who is 6 months s/p segment 4B/5 liver resection f or T2N1 gallbladder adenocarcinoma. She has completed her adjuvant chemo/radiation and is do ing well with no signs of clinical recurrence. INTERVAL HISTORY: No new complaints Moderate ongoing fatigue and nausea, improving since finishing her chemo/rads previous draining seroma site now healed over Denies fevers, weigh loss or new lumps/bumps Meds: Current outpatient prescriptions:acetaminophen 500 mg Oral tablet, Take 1 Tab by mouth ever y four hours as needed for moderate pain., Disp: , Rfl: DOCUSATE CALCIUM (STOOL SOFTENER ORAL), Take by mouth. , Disp: , Rfl: HYDROcodone-acetaminophen (NORCO) 5-325 mg Oral tablet, Take 1 Tab by mouth every four hour s as needed. Not to exceed 10 tablets per any 24 hour period. (Not to exceed 3250 mg of acet aminophen from all products per 24 hour period.), Disp: 60 Tab, Rfl: 0 lidocaine 5 %(700 mg/patch) Topical Adhesive Patch, Medicated, Apply 1 Patch to skin once d aily. Apply patch to most painful area; Patch may remain in place for up to 12 hours in any 24-hour period., Disp: 30 Patch, Rfl: 3 ondansetron ODT 4 mg Oral tablet,disintegrating, Take 1 Tab by mouth every twelve hours as needed., Disp: 12 Tab, Rfl: 1 senna-docusate 8.6-50 mg Oral tablet, Take 1 Tab by mouth two times daily. Stop taking if h aving loose bowel movements. Indications: CONSTIPATION, Disp: 60 Tab, Rfl: 0 OBJECTIVE: Physical Exam: BP 107/69 | Pulse 80 | Temp (Src) 36.6 C (97.9 F) (Oral) | RR 16 | Ht 1.626 m (5' 4") | Wt 79.243 kg (174 lb 11.2 oz) | BMI 29.97 kg/(m^2) General: Alert and oriented, NAD. HEENT: Sclerae anicteric, no cervical or supraclavicular lymphadenopathy Respiratory: Unlabored CV: RRR Abdomen: soft, nondistended, mildly "sore" in the epigastrium. Chevron incision well healed with no remaining soft tissue swellings or draining tracts. Extremities: Warm and well perfused, no peripheral edema PERTINENT LABS/STUDIES: Ultrasound Abdomen 09/28/12: Normal ASSESSMENT AND PLAN: This is Aura Upton, a 51 y.o. F who is 6 months s/p segment 4B/5 liver resection for T2N1 gallbladder adenocarcinoma. She has completed her adjuvant chemo/radiation and is doing well with no signs of clinical recurrence. -- Continue regular follow up with primary oncologist ([facility] surv[facility]) -- Return to surgery clinic as needed Dr. Stanton has seen and examined the patient and agrees with the above plan. Signed: Smitha Loomis MD General Surgery Pager: [phone] [facility] Department of Surgery documented in this en counter Plan of Treatment Not on filedocumented as of this encounter Visit Diagnoses + + | Diagnosis | + + | Gallbladder 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
--- OUTSIDE RECORDS SUMMARY | ~2019-10-19 | XMS | Encounter Summary ---
Demographics + + + | Address | [address] | | | [place] [address] | + + + | Home Phone | | + + + | Preferred Language | Unknown | + + + | Marital Status | | + + + | Anabaptism Affiliation | Unknown | + + + | Race | White | + + + | Ethnic Group | Not or | + + + Author + + + | Author | [facility] | | | and [place] | + + + | Organization | [facility] | | | and [place] | + + + | Address | Unknown | + + + | Phone | Unavailable | + + + Support + + + + + | Name | Relationship | Address | Phone | + + + + + | Poncho Oquendo | ECON | [address] | | | | | [place] | | | | | [address] | | + + + + + | Marta Upton | ECON | [place] | | | | | [address] | | + + + + + Care Team Providers + +------+ + | Care Earth Observ[employer] Chief Scientist Name | Role | Phone | + +------+ + | Valeriy Carmona DO | PCP | | + +------+ + Reason for Visit + +--------+ + | Reason | Onset | Comments | | | Date | | + +--------+ + | Medication Refill | 05/30/ | | | | 2018 | | + +--------+ + Encounter Details +--------+--------+ + + + | Date | Type | Department | Care Team | Description | +--------+--------+ + + + | 05/30/ | Refill | [facility] | Reinaldo, | Medication Refill | | 2018 | | [facility] | Epifanio Soler MD [address] | | | | | [facility] [address] | [facility] | | | | | [address] | [address] [place], [place] | | | | | [place] [address] | [id number] | | | | | [phone] | | | +--------+--------+ + + + Social History + +-------+ [...] this encounter Miscellaneous Notes Telephone Encounter - Epifanio Najera MD - 05/30/2018 11:51 AM PDT prescription for lorazepam approved. Please fax to: [facility] [place] [place] - [address] [facility] [address] [place] [address] Electronically signed by: Epifanio Najera MD 05/30/2018 11:51 documented in t his encounter Plan of Treatment +--------+---------+ + + + | Date | Type | Specialty | Care Team | Description | +--------+---------+ + + + | 10/29/ | Office | Urology | Pedro Green, | | | 2019 | Visit | | DO [address] | | | | | | [place] [address] | | | | | | [phone] | | | | | | | | +--------+---------+ + + + documented as of this encounter Visit Diagnoses + + | Diagnosis | + + | Gallbladder cancer, 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
--- OUTSIDE RECORDS SUMMARY | ~2019-10-19 | XMS | Encounter Summary ---
Demographics + + + | Address | [address] | | | [place] [address] | + + + | Home Phone | | + + + | Preferred Language | Unknown | + + + | Marital Status | | + + + | Alevism Affiliation | Unknown | + + + | Race | White | + + + | Ethnic Group | Not or | + + + Author + + + | Author | [facility] | | | and [place] | + + + | Organization | [facility] | | | and [place] | + + + | Address | Unknown | + + + | Phone | Unavailable | + + + Support + + + + + | Name | Relationship | Address | Phone | + + + + + | Poncho Oquendo | ECON | [address] | | | | | [place] | | | | | [address] | | + + + + + | Marta Upton | ECON | [place] | | | | | [address] | | + + + + + Care Team Providers + +------+ + | Care Fighting Vehicle Systems Maintainer Name | Role | Phone | + [...] | neoplasm of | Epifanio Soler, | [address]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 | MD [address] | [place], | | | | | (HCC) | [address] | [place] [address] | | | | | Procedures | [address] | Phone: | | | | | RI INJ | [place], | [phone] | | | | | [address] | [place] [address] | Fax: | | | | | B, 1MG RI | Phone: | [phone] | | | | | NORMAL | [phone] | | | | | | SALINE | Fax: | | | | | | SOLUTION | [phone] | | | | | | INFUS, 500 | | | | | | | ML RI | | | | | | | NORMAL | | | | | | | SALINE | | | | | | | SOLUTION | | | | | | | INFUS, 250 | | | | | | | ML RI | | | | | | | STERILE | | | | | | | WATER/SALINE | | | | | | | , 10 ML RI | | | | | | | CHEMOTHER, | | | | | | | IV PUSH,EA | | | | | | | ADD DRUG RI | | | | | | | CHEMOTHER, | | | | | | | IV INFUSION, | | | | | | | 1 HR RI | | | | | | | CHEMOTHER, | | | | | | | IV INFUSION, | | | | | | | EA HR RI | | | | | | | CHEMOTHER,NO | | | | | | | N-HORMONE | | | | | | | ANTI-NEOPL, | | | | | | | SUB-Q/IM RI | | | | | | | [...] | +--------+ + + + + | 02/02/ | Hospital | [facility] | Reinaldo, | Gallbladder cancer, | | 2017 | Encounter | MED CTR CHEMO | Epifanio Soler MD [address] | carcinoma (HCC) | | | | INFUSION [address] | | | | | [place], | [address] [place], [place] | | | | | [place] [address] | [address] | | | | | [phone] | | | +--------+ + + + [...] + +---------+ + + | ciprofloxacin | take 1 tablet by | | 0 | 02/01/20 | | | (CIPRO) 500 mg | mouth twice a day | | | 17 | 8 | | tablet | | | | | | + + + +---------+ + + | | Take 1 tablet by | | 0 | | | | HYDROcodone-acetamin | mouth every 6 hours | | | | 8 | | ophen (NORCO) 10-325 | as needed for Pain. | | | | | | mg per tablet | | | | | | + + + +---------+ + + | LORazepam (ATIVAN) | take 1 tablet by | | 0 | 04/02/19 | | | 1 mg tablet | mouth every 4 hours | | | 17 | 9 | | | if needed FOR | [...] documented as of this encounter Progress Notes Marcelina Johnson RN - 02/02/2017 3:09 PM PSTPatient discharged in satisfactory condition. Discharged ambulatory. With family. To home. Verified that patient has antinausea medications at home. Future appointments and After Visit Summary (AVS) provided. documented in this encounter Miscellaneous Notes Treatment Plan - Liz Jordan RN - 02/02/2017 1:42 PM PSTViewed chart for weight, v ital signs and lab results. Also viewed chart for completion of medication and allergy revi ew prior to treatment.Liz Hurst RNDATE/TIME: 02/02/2017 13:42 documented in this encounter Plan of Treatment +--------+---------+ + + + | Date | Type | Specialty | Care Team | Description | +--------+---------+ + + + | 10/29/ | Office | Urology | Pedro Green, | | | 2019 | Visit | | DO [address] | | | | | | [place] [address] | | | | | | [phone] | | | | | | | | +--------+---------+ + + + documented as of this encounter Procedures + +--------+ + + + | Procedure Name | Priori | Date/Time | Associated Diagnosis | Comments | | | ty | | | | + +--------+ + + + | T3, TOTAL | STAT | 02/02/2017 | Gallbladder | Results for this | | | | 12:30 PM | cancer, carcinoma | procedure are in the | | | | PST | (HCC) | results section. | + +--------+ + + + | CBC WITH | STAT | 02/02/2017 | Gallbladder | Results for this | | DIFFERENTIAL | | 12:30 PM | cancer, carcinoma | procedure are in the | | | | PST | (HCC) | results section. | + +--------+ + + + | TSH | STAT | 02/02/2017 | Gallbladder | Results for this | | | | 12:30 PM | cancer, carcinoma | procedure are in the | | | | PST | (HCC) | results section. | + +--------+ + + + | T4, TOTAL | STAT | 02/02/2017 | Gallbladder | Results for this | | | | 12:30 PM | cancer, carcinoma | procedure are in the | | | | PST | ([facility]) | results section. | + +--------+ + + + | LACTATE | STAT | 02/02/2017 | Gallbladder | Results for this | | DEHYDROGENASE | | 12:30 PM | cancer, carcinoma | procedure are in the | | | | PST | ([facility]) | results section. | + +--------+ + + + | COMPREHENSIVE | STAT | 02/02/2017 | Gallbladder | Results for this | | METABOLIC PANEL | | 12:30 PM | cancer, carcinoma | procedure are in the | | | | PST | ([facility]) | results section. | + +--------+ + + + documented in this encounter Results T3 (02/02/2017 12:30 PM PST) + +-------+ + + + | Component | Value | Ref Range | Performed | Pathologist | | | | | At | Signature | + +-------+ + + + | T3, Total | 133 | 71 - 180 ng/dL | REFERENCE | | | | | | LAB [facility] | | | | | | - BKR | | + +-------+ + + + + + | Specimen | + + | Blood | + + + + + | Narrative | Performed At | + + + | Performed at: [address] [facility] [address], | REFERENCE LAB | | [place], [place] [id number] Technician Chemical Cleaning: Ad Larose MD, Phone: | [facility] | | [phone] | | + + + + + + + + | Performing | Address | City/State/Zipcode | Phone Number | | Organization | | | | + + + + + | REFERENCE LAB | [address] | [place], [place] | [phone] | | [facility] [place] | [facility] | [address] | | + + + + + TSH (02/02/2017 12:30 PM PST) + + + + + + | Component | Value | Ref Range | Performed | Pathologist | | | | | At | Signature | + + + + + + | TSH | 1.38Comment: All TSH | 0.34 - 5.60 | [facility] | | | | samples are screened | uIU/mL | . [facility] | | | | using a 2nd Generation | | MEDICAL | | | | test, and are reflexed | | CENTER - | | | | to a 3rd Generation test | | LABORATORY | | | | if indicated. | | | | + + + + + + + + | Specimen | + + | Blood | + + + + + + + | Performing | Address | City/State/Zipcode | Phone Number | | Organization | | | | + + + + + | [facility] | [address] | [place] | [phone] | | [facility] | | [address] | | | - LABORATORY | | | | + + + + + Lactate Dehydrogenase (02/02/2017 12:30 PM PST) + +-------+ + + + | Component | Value | Ref Range | Performed | Pathologist | | | | | At | Signature | + +-------+ + + + | LDH TOTAL | 151 | 91 - 180 U/L | [facility] [...] + | [facility] | [address] | [place] | [phone] | | [facility] | | [address] | | | - LABORATORY | | | | + + + + + Comprehensive Metabolic Panel (02/02/2017 12:30 PM PST) + + + + + [...] K | 3.7 | 3.5 - 5.1 | [facility] | [...] + + + + | CO2 | 28 | 24 - 31 mmol/L | [facility] | | | | | | [facility] | | | | | | MEDICAL | | | | | | CENTER - | | | | | | LABORATORY | | + + + + + + | Anion Gap | 7 | 3 - 16 mmol/L | [facility] | | | | | | [facility] | | | | | | MEDICAL | | | | | | CENTER - | | | | | | LABORATORY | | + + + + + + | Glucose | 139 (H) | 70 - 109 mg/dL | [facility] | | | | | | [facility] | | | | | | MEDICAL | | | | | | CENTER - | | | | | | LABORATORY | | + + + + + + | BUN | 17 | 7 - 18 mg/dL | [facility] | | | | | | [facility] | | | | | | MEDICAL | | | | | | CENTER - | | | | | | LABORATORY | | + + + + + + | Creatinine | 1.47 (H) | 0.60 - 1.30 | [facility] | | | | | mg/dL | [facility] | | | | | | MEDICAL | | | | | | CENTER - | | | | | | LABORATORY | | + + + + + + | eGFR, | 37 (L)Comment: | >=60 | [facility] | | | non- | GLOMERULAR FILTRATION | mL/min/1.73m2 | [facility] | | | Serbian | RATE,ESTIMATED | | MEDICAL | | | | mL/min/1.13o3Ktis than | | CENTER - | | [...] + + + + | Albumin | 3.6 | 3.2 - 5.0 g/dL | [facility] | | | | | | [facility] | | | | | | MEDICAL | | | | | | CENTER - | | | | | | LABORATORY | | + + + + + + | Bilirubin | 0.7 | 0.1 - 1.5 mg/dL | [facility] | | | Total | | | [facility] | | | | | | MEDICAL | | | | | | CENTER - | | | | | | LABORATORY | | + + + + + + | Total | 6.5 | 6.0 - 7.8 g/dL | [facility] | | | Protein | | | [facility] | | | | | | MEDICAL | | | | | | CENTER - | | | | | | LABORATORY | | + + + + + + | AST | 25 | 10 - 42 U/L | [facility] | | | | | | [facility] | | | | | | MEDICAL | | | | | | CENTER - | | | | | | LABORATORY | | + + + + + + | ALT | 13 | 6 - 45 U/L | [facility] | | | | | | [facility] | | | | | | MEDICAL | | | | | | CENTER - | | | | | | LABORATORY | | + + + + + + | Alkaline | 118 (H) | 40 - 110 U/L | [facility] | | | Phosphatase | | | [facility] | | | | | | MEDICAL | | | | | | CENTER - | | | | | | LABORATORY | | + + + + + + | Globulin | 2.9 | 2.1 - 3.8 g/dL | [facility] | | | | | | [facility] | | | | | | MEDICAL | | | | | | CENTER - | | | | | | LABORATORY | | + + + + + + | Albumin/Sakina | 1.2 | 0.8 - 2.0 | [facility] | | | bulin Ratio | | | [facility] | | | | | | MEDICAL | | | | | | CENTER - | | | | | | LABORATORY | | + + + + + + | BUN/Creatin | 11.6 | | [facility] | | | ine [...] + | [facility] | [address] | [place] | [phone] | | [facility] | | [address] | | | - LABORATORY | | | | + + + + + CBC with Differential (02/02/2017 12:30 PM PST) + +-------+ + + + | Component | Value | Ref Range | Performed | Pathologist | | | | | At | Signature | + +-------+ + + + | White Blood | 6.4 | 4.0 - 11.0 K/uL | [facility] | | | Cells | | | [facility] | | | | | | MEDICAL | | | | | | CENTER - | | | | | | LABORATORY | | + +-------+ + + + | Red Blood | 3.80 | 3.70 - 5.20 | [facility] | | | Cells | | M/uL | [facility] | | | | | | MEDICAL | | | | | | CENTER - | | | | | | LABORATORY | | + +-------+ + + + | Hemoglobin | 11.7 | 11.5 - 16.0 | [facility] | | | | | g/dL | [facility] | | | | | | MEDICAL | | | | | | CENTER - | | | | | | LABORATORY | | + +-------+ + + + | Hematocrit | 34.4 | 34.0 - 47.0 % | [facility] | | | | | | [facility] | | | | | | MEDICAL | | | | | | CENTER - | | | | | | LABORATORY | | + +-------+ + + + | MCV | 90.4 | 83.0 - 101.0 fL | [facility] | | | | | | [facility] | | | | | | MEDICAL | | | | | | CENTER - | | | | | | LABORATORY | | + +-------+ + + + | MCH | 30.9 | 28.0 - 35.0 pg | [facility] | | | | | | [facility] | | | | | | MEDICAL | | | | | | CENTER - | | | | | | LABORATORY | | + +-------+ + + + | MCHC | 34.1 | 32.0 - 36.0 | [facility] | | | | | g/dL | [facility] | | | | | | MEDICAL | | | | | | CENTER - | | | | | | LABORATORY | | + +-------+ + + + | RDW-CV | 13.2 | <15.0 % | [facility] | | | | | | [facility] | | | | | | MEDICAL | | | | | | CENTER - | | | | | | LABORATORY | | + +-------+ + + + | Platelet | 173 | 140 - 440 K/uL | [facility] | | | Count | | | [facility] | | | | | | MEDICAL | | | | | | CENTER - | | | | | | LABORATORY | | + +-------+ + + + | MPV | 7.7 | fL | [facility] | | | | | | [facility] | | | | | | MEDICAL | | | | | | CENTER - | | | | | | LABORATORY | | + +-------+ + + + | % | 53.1 | 45.0 - 82.0 % | [facility] | | | Neutrophils | | | [facility] | | | | | | MEDICAL | | | | | | CENTER - | | | | | | LABORATORY | | + +-------+ + + + | % | 32.6 | 20.0 - 45.0 % | [facility] | | | Lymphocytes | | | [facility] | | | | | | MEDICAL | | | | | | CENTER - | | | | | | LABORATORY | | + +-------+ + + + | % Monocytes | 11.0 | 4.0 - 12.0 % | [facility] | | | | | | [facility] | | | | | | MEDICAL | | | | | | CENTER - | | | | | | LABORATORY | | + +-------+ + + + | % | 2.8 | 0.0 - 5.0 % | [facility] | | | Eosinophils | | | [facility] | | | | | | MEDICAL | | | | | | CENTER - | | | | | | LABORATORY | | + +-------+ + + + | % Basophils | 0.5 | 0.0 - 1.0 % | [facility] | | | | | | [facility] | | | | | | MEDICAL | | | | | | CENTER - | | | | | | LABORATORY | | + +-------+ + + + | Absolute | 3.40 | 1.80 - 8.50 | [facility] | | | Neutrophils | | K/uL | [facility] | | | | | | MEDICAL | | | | | | CENTER - | | | | | | LABORATORY | | + +-------+ + + + | Absolute | 2.10 | 0.60 - 3.20 | [facility] | | | Lymphocytes | | K/uL | [facility] | | | | | | MEDICAL | | | | | | CENTER - | | | | | | LABORATORY | | + +-------+ + + + | Absolute | 0.70 | 0.00 - 1.00 | [facility] | | | Monocytes | | K/uL | [facility] | | | | | | MEDICAL | | | | | | CENTER - | | | | | | LABORATORY | | + +-------+ + + + | Absolute | 0.20 | 0.00 - 0.40 | [facility] | | | Eosinophils | | K/uL | [facility] | | | | | | MEDICAL | | | | | | CENTER - | | | | | | LABORATORY | | + +-------+ + + + | Absolute | 0.00 [...] + | [facility] | [address] | [place] | [phone] | | [facility] | | [address] | | | - LABORATORY | | | | + + + + + T4, Total (02/02/2017 12:30 PM PST) + +-------+ + + + | Component | Value | Ref Range | Performed | Pathologist | | | | | At | Signature | + +-------+ + + + | T4, Total | 6.9 | 4.7 - 9.8 ug/dL | [facility] | | | | | | [facility] [...] | + + + + + | [facility] | [address] | [place] | [phone] | | [facility] | | [address] | | | - LABORATORY | | | | + + + + + documented in this encounter Visit Diagnoses + + | Diagnosis | + + | Gallbladder cancer, carcinoma (HCC) Malignant neoplasm of gallbladder | + + documented in this encounter Administered Medications + +--------+ +-------+------+------+ | Medication Order | MAR | Action | Dose | Rate | Site | | | Action | Date | | | | + +--------+ +-------+------+------+ | heparin 100 units/mL flush | Given | 02/03/20 | 500 | | | | injection 500 Units 500 Units (5 | | 17 3:05 | Units | | | | mL), Intracatheter, PRN, Line | | PM PST | | | | | Care, Starting 02/02/17 at | | | | | | | 1342 | | | | | | + +--------+ +-------+------+------+ +---+---+ | | | +---+---+ + +---------+ +--------+-------+---+ | pembrolizumab (KEYTRUDA) 200 mg | New Bag | 02/03/20 | 200 mg | 116 | | | in sodium chloride 0.9% 50 mL | | 17 2:37 | | mL/hr | | | infusion 200 mg, Intravenous, | | PM PST | | | | | Administer over 30 Minutes, ONCE, | | | | | | | 02/02/17 at 1400, For 1 | | | | | | | dose, Keep in refrigerator. Use | | | | | | | 0.2 to 5 micron filter for | | | | | | | administration., | | | | | | + +---------+ +--------+-------+---+ +---+---+ | | | +---+---+ documented in this encounter"
--- OUTSIDE RECORDS SUMMARY | ~2019-10-19 | XMS | Encounter Summary ---
Demographics + + + | Address | [address] | | | [place] [address] | + + + | Home Phone | | + + + | Preferred Language | Unknown | + + + | Marital Status | | + + + | Gnosticism Affiliation | Unknown | + + + | Race | White | + + + | Ethnic Group | Not or | + + + Author + + + | Author | [facility] | | | and [place] | + + + | Organization | [facility] | | | and [place] | + + + | Address | Unknown | + + + | Phone | Unavailable | + + + Support + + + + + | Name | Relationship | Address | Phone | + + + + + | Poncho Oquendo | ECON | [address] | | | | | [place] | | | | | [address] | | + + + + + | Marta Upton | ECON | [place] | | | | | [address] | | + + + + + Care Team Providers + +------+ + | Care Record Retrieval Specialist Name | Role | Phone | + +------+ + | No, Physician | PCP | Unavailable | + +------+ + Reason for Visit +--------+--------+ + | Reason | Onset | Comments | | | Date | | +--------+--------+ + | Other | 10/18/ | Canceling Appointment | | | 2018 | | +--------+--------+ + Encounter Details +--------+ + + + + | Date | Type | Department | Care Team | Description | +--------+ + + + + | 10/18/ | Telephone | [facility] | Pedro Green, | Other (Canceling | | 2018 | | UROLOGY [address] | DO [address] | Appointment) | | | | [address] | [place] [address] | | | | | [place], [place] | [phone] | | | | | [address] | | | | | | [phone] | | | +--------+ + + + [...] this encounter Miscellaneous Notes Telephone Encounter - Michael Cleveland - 10/18/2018 1:42 PM Desi, is calling kasey Benitez (Canceling Appointment) and would like a call back. Additional Call Details: Calling to cancel 10-19-18 appointment. Call: [phone] If this is a symptom based call, was patient offered triage? Not Applicable If this is a symptom based call and you were unable to immediately transfer the call to a jaclyn maradiaga vendor manager was caller made aware that if at any time she feels it is an emergency they sh ould call 911 or go to the nearest emergency room? not applicable documented in this encounter Plan of Treatment +--------+---------+ + + + | Date | Type | Specialty | Care Team | Description | +--------+---------+ + + + | 10/29/ | Office | Urology | Pedor Green, | | | 2019 | Visit | | DO [address] | | | | | | [place] [address] | | | | | | [phone] | | | | | | | | +--------+---------+ + + + documented as of this encounter Visit Diagnoses Not on filedocumented in this encounter"
--- OUTSIDE RECORDS SUMMARY | ~2019-10-19 | XMS | Encounter Summary ---
Demographics + + + | Address | [address] | | | [place] [address] | + + + | Home Phone | | + + + | Preferred Language | Unknown | + + + | Marital Status | | + + + | Mormonism Affiliation | Unknown | + + + | Race | White | + + + | Ethnic Group | Not or | + + + Author + + + | Author | [facility] | | | and [place] | + + + | Organization | [facility] | | | and [place] | + + + | Address | Unknown | + + + | Phone | Unavailable | + + + Support + + + + + | Name | Relationship | Address | Phone | + + + + + | Poncho Oquendo | ECON | [address] | | | | | [place] | | | | | [address] | | + + + + + | Marta Upton | ECON | [place] | | | | | [address] | | + + + + + Care Team Providers + +------+ + | Care Integration Assistant Name | Role | Phone | + +------+ + | Valeriy Carmona DO | PCP | | + +------+ + Reason for Visit +--------+--------+ + | Reason | Onset | Comments | | | Date | | +--------+--------+ + | Other | 11/07/ | | | | 2014 | | +--------+--------+ + Encounter Details +--------+ + + + + | Date | Type | Department | Care Team | Description | +--------+ + + + + | 11/07/ | Telephone | [facility] | Reinaldo, | Other | | 2014 | | MED CTR MEDICAL | Epifanio Soler MD [address] | | | | | [facility] [address] | [facility] | | | | | [address] | [address] [place], [place] | | | | | [place] [address] | [address] | | | | | [phone] | | | +--------+ + + + [...] this encounter Miscellaneous Notes Telephone Encounter - Sonia Renae RN - 11/11/2014 4:54 PM PDTCall placed again, message left to return call. elephone Encounter - Sonia Renae RN - 11/07/2014 2:59 PM PDTCall ret urned: message left to call back. Electronically signed by Sonia Renae RN at 2014 3:00 PM PDTTelephone Encounter - Nikky العراقي - 11/07/2014 12:27 PM PDTAura was calling to speak with Waleska about an injection. Please advise. documented in this encounter Plan of Treatment +--------+---------+ + + + | Date | Type | Specialty | Care Team | Description | +--------+---------+ + + + | 10/29/ | Office | Urology | Pedro Green, | | | 2019 | Visit | | DO [address] | | | | | | [facility] [place] [address] | | | | | | [phone] | | | | | | | | +--------+---------+ + + + documented as of this encounter Visit Diagnoses Not on filedocumented in this encounter"
--- OUTSIDE RECORDS SUMMARY | ~2019-10-19 | XMS | Encounter Summary ---
Demographics + + + | Address | [address] | | | [place] [address] | + + + | Home Phone | | + + + | Preferred Language | Unknown | + + + | Marital Status | | + + + | Congregational Affiliation | Unknown | + + + | Race | White | + + + | Ethnic Group | Not or | + + + Author + + + | Author | [facility] | | | and [place] | + + + | Organization | [facility] | | | and [place] | + + + | Address | Unknown | + + + | Phone | Unavailable | + + + Support + + + + + | Name | Relationship | Address | Phone | + + + + + | Poncho Omar Oquendo | ECON | [address] | | | | | [place] | | | | | [address] | | + + + + + | Marta Upton | ECON | [place] | | | | | [address] | | + + + + + Care Team Providers + +------+ + | Care Computer Recycling Worker Name | Role | Phone | [...] | | Malignant | Reinaldo, | [address] | | | | | neoplasm of | Epifanio Soler, | [address], | | | | | extrahepatic | MD [address] | [place] [address] | | | | | bile ducts | [address] | Phone: | | | | | Procedures | [address] | [phone] | | | | | CT Abdomen | [place], | Fax: | | | | | Pelvis w | [place] [address] | [phone] | | | | | Contrast | Phone: | | | | | | | [phone] | | | | | | | Fax: | | | | | | | [phone] | | +--------+--------+ + + + + [...] | | Malignant | Reinaldo, | [address] | | | | | neoplasm of | Epifanio Soler, | [place], | | | | | extrahepatic | MD [address] | [place] [address] | | | | | bile ducts | [address] | Phone: | | | | | Procedures | [address] | [phone] | | | | | CT Abdomen | [place], | Fax: | | | | | Pelvis w | [place] [address] | [phone] | | | | | Contrast | Phone: | | | | | | | [phone] | | | | | | | Fax: | | | | | | | [phone] | | +--------+--------+ + + + + Encounter Details +--------+ + + + + | Date | Type | Department | Care Team | Description | +--------+ + + + + | 09/25/ | Hospital | [facility] | Reinaldo, | 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 | | | | [place], | [address] | ducts (HCC) | | | | [place] [address] | [address] [place], [place] | | | | | [phone] | [address] | | | | | | | [...] documented as of this encounter Miscellaneous Notes Miscellaneous - KSENIA MATOS - 10/04/2013 12:00 AM PDT documented in this encounter Plan of Treatment +--------+---------+ + + + | Date | Type | Specialty | Care Team | Description | +--------+---------+ + + + | 10/29/ | Office | Urology | Pedro Green, | | | 2019 | Visit | | DO [address] | | | | | | [place] [address] | | | | | | [phone] | | | | | | | [...] + | MISCELLANEOUS LAB | | | [phone] | + +---------+ + + | MISCELANIOUS LAB | | | [phone] | + +---------+ + + documented in [...]
--- OUTSIDE RECORDS SUMMARY | ~2019-10-19 | XMS | Encounter Summary ---
Demographics + + + | Address | [address] | | | [place] [address] | + + + | Home Phone | | + + + | Preferred Language | Unknown | + + + | Marital Status | Single | + + + | Restoration Affiliation | NON | + + + | Race | White | + + + | Ethnic Group | Not or | + + + Author + + + | Author | [facility] | + + + | Organization | [facility] | + + + | Address [...] Team Providers + +------+ + | Care Car Repairer Name | Role | Phone | + +------+ + PCP | Unavailable | + +------+ + Encounter Details +--------+ + + + + | Date | Type | Department | Care Team | Description | +--------+ + + + + | 06/18/ | Documentati | Otolaryngology | Virgilio Buck MD | | | 2008 | on | Facial Plastics & | [address] | | | | | Reconstructive | [place], | | | | | Services at [facility] | [place] [address] | | | | | [address] | [phone] | | | | | [facility] | | | | | | and Healing, | | | | | | Building [address]th | | | | | | Floor [place], [place] | | | | | | [address] | | | | | | [phone] | | | +--------+ + + + [...] this encounter Miscellaneous Notes Telephone Encounter - Radha Peñaloza - 06/18/2008 8:58 AM PDT From: Virgilio Buck Sent: Thursday, June 12, 2008 7:24 AM To: Aura Upton Cc: [email or web address]; Radha Peñaloza Subject: RE: Request for Information Ms. Upton, thank you for your email. I just did a search and found [email or web address] om website which describes the procedure. Hope this is helpful. Warm regards, Virgilio Buck MD | professor Facial Plastic and Reconstructive Surgery [facility] [phone] | [email or web address] This e-mail, facsimile, or letter and any file or attachments transmitted with it contains information that is confidential and privileged. This information is intended only for the u se of the individual(s) or entity(ies) to whom it is addressed. If you are the intended reci pient, further disclosures are prohibited without proper authorization. If you are not the i ntended recipient, any disclosure, copying, printing or use of this information is a strictl y prohibited and a possible violation of federal or state law. If you have received this inf ormation in error, please notify the sender. Thank you. From: Aura Upton [mailto:[email or web address]] Sent: Wednesday, June 11, 2008 9:09 AM To: Virgilio Buck Cc: [email or web address] Subject: Request for Information Dr. Buck: I met with you on 06/10/08 and have since scheduled a surgery date (07/04) so that you may re pair my perforated septum. As you may recall, I had previously consulted with Dr. Olivia. The methodology you described to me is quite different from Dr. Olivia methodology, in my fav or, or so it seemed to me. In any event, is there a website you can direct me to that descr ibes the procedure you plan to use in this surgery? I would like to learn as much about th is procedure as possible before I ask you any questions prior to the surgery. Thank you for your time! Aura Upton documente d in this encounter Plan of Treatment Not on filedocumented as of this encounter Visit Diagnoses Not on filedocumented in this encounter"
--- OUTSIDE RECORDS SUMMARY | ~2019-10-19 | XMS | Encounter Summary ---
Demographics + + + | Address | [address] | | | [place] [address] | + + + | Home Phone | | + + + | Preferred Language | Unknown | + + + | Marital Status | | + + + | Presybeterian Affiliation | Unknown | + + + | Race | White | + + + | Ethnic Group | Not or | + + + Author + + + | Author | [facility] | | | and [place] | + + + | Organization | [facility] | | | and [place] | + + + | Address | Unknown | + + + | Phone | Unavailable | + + + Support + + + + + | Name | Relationship | Address | Phone | + + + + + | Poncho Oquendo | ECON | [address] | | | | | [place] | | | | | [address] | | + + + + + | Marta Upton | ECON | [place] | | | | | [address] | | + + + + + Care Team Providers + +------+ + | Care Poly Operator Name | Role | Phone | + +------+ + | Valeriy Carmona DO | PCP | | + +------+ + Reason for Visit +--------+--------+ + | Reason | Onset | Comments | | | Date | | +--------+--------+ + | Other | 08/07/ | | | | 2014 | | +--------+--------+ + Encounter Details +--------+ + + + + | Date | Type | Department | Care Team | Description | +--------+ + + + + | 08/07/ | Telephone | [facility] | Reinaldo, | Other | | 2014 | | [facility] | Epifanio Soler MD [address] | | | | | [facility] | [facility] | | | | | [address] | [address] [place], [place] | | | | | [place] [address] | [address] | | | | | [phone] | | | +--------+ + + + [...] this encounter Miscellaneous Notes Telephone Encounter - Waleska Morrissey RN - 08/08/2014 9:22 AM PDTLetter faxed to mis nguyen as requested. Confirmation of fax received. elephone Encounter - Waleska Morrissey RN - 08/07/2014 11:42 AM PDTNote written on letterhead and awaiting 's signature.Electronicall y signed by Waleska Morrissey RN at 08/07/2014 11:43 AM PDTTelephone Encounter - Waleska Morrissey RN - 08/07/2014 11:31 AM PDTAura called back. States that she just needs a note from Dr. Najera stating that she didn't receive and cancer treatment in the year 2013. According to our records, Aura only had one followup with lab and a CT scan in the year 2013. She requests that the letter be faxed to her at [phone].Electronically sig yenny by Waleska Morrissey RN at 08/07/2014 11:34 AM PDTTelephone Encounter - Gabrielle Morrissey RN - 08/07/2014 9:48 AM PDTReturned call. No answer. Message left to call us bunny rashmi. elephone Encfernando nter - Tila Baca - 08/07/2014 9:09 AM PDTRitu is having issues with [facility] and needs a letter from DR Najera stating that she did not receive any cancer treatment in 2013. Can you please call her at [phone].Electronically signed by Tila Baca at 07/16 9:11 AM PDTdocumented in this encounter Plan of Treatment +--------+---------+ + + + | Date | Type | Specialty | Care Team | Description | +--------+---------+ + + + | 10/29/ | Office | Urology | Pedro Green, | | | 2019 | Visit | | DO [address] | | | | | | [place] [address] | | | | | | [phone] | | | | | | | | +--------+---------+ + + + documented as of this encounter Visit Diagnoses Not on filedocumented in this encounter"
--- OUTSIDE RECORDS SUMMARY | ~2019-10-19 | XMS | Encounter Summary ---
Demographics + + + | Address | [address] | | | [place] [address] | + + + | Home Phone [...] | Author | [facility] | | | and [place] | + + + | Organization | [facility] | | | and [place] | + + + | Address | Unknown | + + + | Phone | Unavailable | + + + Support + + + + + | Name | Relationship | Address | Phone | + + + + + | Poncho Oquendo | ECON | [address] | | | | | [place] | | | | | [address] | | + + + + + | Marta Upton | ECON | [place] | | | | | [address] | | + + + + + Care Team Providers + +------+ + | Care Exchange Teller Name | Role | Phone | + +------+ + | No, Physician | PCP | Unavailable | + +------+ + Encounter Details +--------+ + + + + | Date | Type | Department | Care Team | Description | +--------+ + + + + | 04/26/ | Hospital | [facility] | Pedro Green, | | | 2019 | Encounter | REGIONAL SURGERY | DO [address] | | | | | CENTER [facility] | [place] [address] | | | | | [address] | [phone] | | | | | [place], [place] | | | | | | [address] | | | | | | [phone] | | | +--------+ + + + [...] + + + +---------+ + + | estradiol | insert 1 tablet | | 0 | //20 | | | (VAGIFEM) 10 mcg | vaginally two times | | | 20 | | | vaginal tablet | a week | | | | | + + + +---------+ + + | GRANIX 300 | | | 0 | //20 | | | MCG/0.5ML injection | | | | 19 | | + + + +---------+ + + | | take 1 tablet by | | 0 | 04/18/19 | | | HYDROcodone-acetamin | mouth every 4 hours | | | 20 | | | ophen (NORCO) 10-325 | or 2 tablets by | | | | | | mg per tablet | mouth every 6 hours | | | | | | | if needed for pain | | | | | + [...] + + + +---------+ + + | polyethylene | Take 17 g by mouth | | 0 | | | | glycol (MIRALAX) | Daily. | | | | | | packet | | | | | | + + + +---------+ + + | ciprofloxacin | Take 1 tablet by | 6 | 0 | 04/27/19 | | | (CIPRO) 250 mg | mouth 2 times daily | tablet | | 20 | 0 | | tablet | for 3 days. | | | | | + + + +---------+ + + | traMADol (ULTRAM) | Take 1 tablet by | 30 | 0 | 04/27/19 | | | 50 mg tablet | mouth every 6 hours | tablet | | 20 | 0 | | | as needed for Pain | | | | | | | for up to 10 days. | | | | | + + + +---------+ + + documented as of this encounter Plan of Treatment +--------+---------+ + + + | Date | Type | Specialty | Care Team | Description | +--------+---------+ + + + | 10/29/ Office | Urology | Pedro Green, | | | 2019 | Visit | | DO [address] [facility] | | | | | | [place] [address] | | | | | | [phone] | | | | | | | | +--------+---------+ + + + documented as of this encounter Procedures + +--------+ + + + | Procedure Name | Priori | Date/Time | Associated Diagnosis | Comments | | | ty | | | | + +--------+ + + + | BG Soler ARM | Routin | 04/27/2019 | | Results for this | | | e | 10:26 AM | | procedure are in the | | | | PDT | | results section. | + +--------+ + + + documented in this encounter Results BG Hernandez (04/27/2019 10:26 AM PDT) + + | Specimen | + + | | + + + + + | Narrative | Performed At | + + + | This exam has been auto-finalized and the interpretation may exist | | | elsewhere in the chart. | | + + + documented in this encounter Visit Diagnoses Not on filedocumented in this encounter"
--- OUTSIDE RECORDS SUMMARY | ~2019-10-19 | XMS | Encounter Summary ---
Demographics + + + | Address | [address] | | | [place] [address] | + + + | Home Phone [...] + + + | Author | [facility] | | | and [place] | + + + | Organization | [facility] | | | and [place] | + + + | Address | Unknown | + + + | Phone | Unavailable | + + + Support + + + + + | Name | Relationship | Address | Phone | + + + + + | Poncho Oquendo | ECON | [address] | | | | | [place] | | | | | [address] | | + + + + + | Marta Upton | ECON | [place] | | | | | [address] | | + + + + + Care Team Providers + +------+ + | Care Aco Coordinator Name | Role | Phone | + +------+ + PCP | Unavailable | + +------+ + Encounter Details +--------+ + + + + | Date | Type | Department | Care Team | Description | +--------+ + + + + | 10/12/ | Hospital | [facility] | | | | 2012 - | Encounter | [facility] [address] | | | | 10/14/ | | [place], [place] | | | | 2012 | | [address] | | | | | | [phone] | | | +--------+ + + + [...] | | | | | [place] [address] | | | | | | [phone] | | | | | | | | +--------+---------+ + + + documented as of this encounter Procedures + +--------+ + + + | Procedure Name | Priori | Date/Time | Associated Diagnosis | Comments | | | ty | | | | + +--------+ + + + | CA 19-9, QUANT | Routin | 10/12/2012 | | Results for this | | | e | 8:20 AM | | procedure are in the | | | | PDT | | results section. | + +--------+ + + + | CBC WITH | Routin | 10/12/2012 | | Results for this | | DIFFERENTIAL | e | 8:20 AM | | procedure are in the | | | | PDT | | results section. | + +--------+ + + + | LACTATE | Routin | 10/12/2012 | | Results for this | | DEHYDROGENASE | e | 8:20 AM | | procedure are in the | | | | PDT | | results section. | + +--------+ + + + | COMPREHENSIVE | Routin | 10/12/2012 | | Results for this | | METABOLIC PANEL | e | 8:20 AM | | procedure are in the | | | | PDT | | results section. | + +--------+ + + + | CA 19-9, QUANT | Routin | 10/05/2012 | | Results for this | | | e | 8:02 AM | | procedure are in the | | | | PDT | | results section. | + +--------+ + + + | CBC WITH | Routin | 10/05/2012 | | Results for this | | DIFFERENTIAL | e | 8:02 AM | | procedure are in the | | | | PDT | | results section. | + +--------+ + + + | LACTATE | Routin | 10/05/2012 | | Results for this | | DEHYDROGENASE | e | 8:02 AM | | procedure are in the | | | | PDT | | results section. | + +--------+ + + + | COMPREHENSIVE | Routin | 10/05/2012 | | Results for this | | METABOLIC PANEL | e | 8:02 AM | | procedure are in the | | | | PDT | | results section. | + +--------+ + + + | CA 19-9, QUANT | Routin | 09/28/2012 | | Results for this | | | e | 7:44 AM | | procedure are in the | | | | PDT | | results section. | + +--------+ + + + | CBC WITH | Routin | 09/28/2012 | | Results for this | | DIFFERENTIAL | e | 7:44 AM | | procedure are in the | | | | PDT | | results section. | + +--------+ + + + | LACTATE | Routin | 09/28/2012 | | Results for this | | DEHYDROGENASE | e | 7:44 AM | | procedure are in the | | | | PDT | | results section. | + +--------+ + + + | COMPREHENSIVE | Routin | 09/28/2012 | | Results for this | | METABOLIC PANEL | e | 7:44 AM | | procedure are in the | | | | PDT | | results section. | + +--------+ + + + | CA 19-9, QUANT | Routin | 09/14/2012 | | Results for this | | | e | 9:01 AM | | procedure are in the | | | | PDT | | results section. | + +--------+ + + + | CBC WITH | Routin | 09/14/2012 | | Results for this | | DIFFERENTIAL | e | 9:01 AM | | procedure are in the | | | | PDT | | results section. | + +--------+ + + + | LACTATE | Routin | 09/14/2012 | | Results for this | | DEHYDROGENASE | e | 9:01 AM | | procedure are in the | | | | PDT | | results section. | + +--------+ + + + | COMPREHENSIVE | Routin | 09/14/2012 | | Results for this | | METABOLIC PANEL | e | 9:01 AM | | procedure are in the | | | | PDT | | results section. | + +--------+ + + + documented in this encounter Results CBC with Differential (10/12/2012 8:20 AM PDT) + + + + + [...] + + + | White Blood | 2.7 (L) | 4.0 - 11.0 K/uL | [facility] | | | Cells | | | [facility] | [facility] - | | | | | | LABORATORY | | + + + + + + | Red Blood | 4.01 | 3.70 - 5.20 | [facility] | | | Cells | | M/uL | [facility] | | | [facility] | | [facility] | | | | | | [facility] - | | | | | | LABORATORY | | + + + + + + | Hemoglobin | 13.9 | 11.5 - 16.0 | [facility] | | | | | gm/dL | [facility] | | | | | | [facility] | | | | | | [facility] - | | | | | | LABORATORY | | + + + + + + | Hematocrit | 41.1 | 34.0 - 47.0 % | [facility] | | | | | | [facility] | | | | | | [facility] | | | | | | [facility] - | | | | | | LABORATORY | | + + + + + + | MCV | 102.5 (H) | 83.0 - 101.0 fL | [facility] | | | | | | [facility] | | | | | | [facility] | | | | | | [facility] - | | | | | | LABORATORY | | + + + + + + | MCH | 34.6 | 28.0 - 35.0 pg | [facility] | | | | | | [facility] | | | | | | [facility] | | | | | | [facility] - | | | | | | LABORATORY | | + + + + + + | MCHC | 33.8 | 32.0 - 36.0 | [facility] | | | | | g/dL | [facility] | | | | | | [facility] | | | | | | [facility] - | | | | | | LABORATORY | | + + + + + + | RDW-CV | 19.5 (H) | <15.0 % | [facility] | | | | | | [facility] | | | | | | [facility] | | | | | | [facility] - | | | | | | LABORATORY | | + + + + + + | Platelet | 168 | 140 - 440 K/uL | [facility] | | | Count | | | [facility] | | | | | | [facility] | | | | | | [facility]ENTER - | | | | | | LABORATORY | | + + + + + + | % | 63.6 | 45 - 75 % | [facility] | | | Neutrophils | | | [facility] | | | | | | [facility] | | | | | | CENTER - | | | | | | LABORATORY | | + + + + + + | % | 9.9 (L) | 20 - 45 % | [facility] | | | Lymphocytes | | | [facility] | | | | | | [facility] | | | | | | CENTER - | | | | | | LABORATORY | | + + + + + + | % Monocytes | 17.4 (H) | 4 - 12 % | [facility] | | | | | | [facility] | | | | | | [facility] | | | | | | CENTER - | | | | | | LABORATORY | | + + + + + + | % | 8.4 (H) | 0 - 5 % | [facility] | | | Eosinophils | | | [facility] | | | | | | [facility] | | | | | | CENTER - | | | | | | LABORATORY | | + + + + + + | % Basophils | 0.7 | 0 - 1 % | [facility] | | | | | | [facility] | | | [facility] | | [facility] | | | | | | [facility]ENTER - | | | | | | LABORATORY | | + + + + + + | Absolute | 1.7 | 1.5 - 6.6 K/uL | [facility] | | | Neutrophils | | | [facility] | | | | | | [facility] | | | | | | CENTER - | | | | | | LABORATORY | | + + + + + + | Absolute | 0.3 (L) | 0.6 - 3.2 K/uL | [facility] | | | Lymphocytes | | | [facility] | | | | | | [facility] | | | | | | CENTER - | | | | | | LABORATORY | | + + + + + + | Absolute | 0.5 | 0.0 - 1.0 K/uL | [facility] | | | Monocytes | | | [facility] | | | | | | [facility] | | | | | | CENTER - | | | | | | LABORATORY | | + + + + + + | Absolute | 0.2 | 0.0 - 0.4 K/uL | [facility] [...] [address] | [place] | [phone] | | [facility] | | [address] | | | - LABORATORY | | | | + + + + + | [facility] | [address] | [place] | | | [facility] | | [address], [facility] | | | - LABORATORY | | | | + + + + + CA 19-9, Quant (10/12/2012 8:20 AM PDT) + + + + + + | Component | Value | Ref Range | Performed | Pathologist | | | | | At | Signature | + + + + + + | CA 19 9 | 12Comment: The Siemens | 0 - 37 U/mL | [facility] | | | | (formerly [facility]) [facility] | | [facility] | | | | Centaur immunoassay | [...] | | | | | | Performed: [facility], [address] | | | | | [address], [place] | | | | | | [address] CLIA: | | | | | | [id number] | | | | + + + + + + + + | Specimen | + + | | + + + + + + + | Performing | Address | City/State/Zipcode | Phone Number | | Organization | | | | + + + + + | [facility] | [address] | [place], [place] | [phone] | | [facility] | | [address] | | | - LABORATORY | | | | + + + + + | [facility] | [address] | [place], [place] | | | [facility] | | [address], [facility] | | | - LABORATORY | | | | + + + + + Comprehensive Metabolic Panel (10/12/2012 8:20 AM PDT) + + + + + + | Component | Value | Ref Range | Performed | Pathologist | | | | | At | Signature | + + + + + + | Glucose | 94 | 70 - 109 mg/dL | [facility] | | | | | | [facility] | | | | | | [facility]ICAL | | | | | | CENTER - | | | | | | LABORATORY | | + + + + + + | Calcium | 9.0 | 8.3 - 10.5 | [facility] | | | | | mg/dL | [facility] | | | | | | MEDICAL | | | | | | CENTER - | | | | | | LABORATORY | | + + + + + + | Alkaline | 108 | 40 - 110 IU/L | [facility] | | | Phosphatase | | | [facility] | | | | | | MEDICAL | | | | | | CENTER - | | | | | | LABORATORY | | + + + + + + | AST | 24 | 10 - 42 IU/L | [facility] | | | | | | [facility] | | | | | | MEDICAL | | | | | | CENTER - | | | | | | LABORATORY | | + + + + + + | ALT | 15 | 6 - 45 IU/L | [facility] [...] + + + + | Creatinine | 0.82 | 0.60 - 1.30 | [facility] | | | | | mg/dL | [facility] | | | | | | [...] + + + + | BUN/Creatin | 11.0 (L) | 12 - 20 | [facility] | | | ine Ratio | | | [facility] | | | | | | [facility] | | | | | | CENTER - | | | | | | LABORATORY | | + + + + + + | Na | 139 | 136 - 149 mEq/L | [facility] [...] + + + | Anion Gap | 14.0 | 6.0 - 17.0 | [facility] | [...] | + + + + + | [facility] | [address] | [place] | [phone] | | [facility] | | [address] | | | - LABORATORY | | | | + + + + + | [facility] | [address] | [place] | | | [facility] | | [address] | | | - LABORATORY | | | | + + + + + Lactate Dehydrogenase (10/12/2012 8:20 AM PDT) + +-------+ + + + | Component | Value | Ref Range | Performed | Pathologist | | | | | At | Signature | + +-------+ + + + | LDH TOTAL | 169 | 91 - 180 IU/L | [facility] [...] | + + + + + | [facility] | [address] | [place], [place] | [phone] | | [facility] | | [address] | | | - LABORATORY | | | | + + + + + | [facility] | [address] | [place], [place] | | | [facility] | | [address] [place] [address] | | | - LABORATORY | | | | + + + + + CBC with Differential (10/05/2012 8:02 AM PDT) + + + + + [...] + + + | White Blood | 3.8 (L) | 4.0 - 11.0 K/uL | [facility] | | | Cells | | | [facility] | | | | | | MEDICAL | | | | | | CENTER - | | | | | | LABORATORY | | + + + + + + | Red Blood | 4.10 | 3.70 - 5.20 | [facility] | | | Cells | | M/uL | [facility] | | | | | | MEDICAL | | | | | | CENTER - | | | | | | LABORATORY | | + + + + + + | Hemoglobin | 14.3 | 11.5 - 16.0 | [facility] | | | | | gm/dL | [facility] | | | | | | MEDICAL | | | | | | CENTER - | | | | | | LABORATORY | | + + + + + + | Hematocrit | 41.7 | 34.0 - 47.0 % | [facility] | | | | | | [facility] | | | | | | MEDICAL | | | | | | CENTER - | | | | | | LABORATORY | | + + + + + + | MCV | 101.7 (H) | 83.0 - 101.0 fL | [facility] | | | | | | [facility] | | | | | | MEDICAL | | | | | | CENTER - | | | | | | LABORATORY | | + + + + + + | MCH | 34.9 | 28.0 - 35.0 pg | [facility] | | | | | | [facility] | | | | | | MEDICAL | | | | | | CENTER - | | | | | | LABORATORY | | + + + + + + | MCHC | 34.3 | 32.0 - 36.0 | [facility] | | | | | g/dL | [facility] | | | | | | MEDICAL | | | | | | CENTER - | | | | | | LABORATORY | | + + + + + + | RDW-CV | 20.4 (H) | <15.0 % | [facility] | | | | | | [facility] | | | | | | MEDICAL | | | | | | CENTER - | | | | | | LABORATORY | | + + + + + + | Platelet | 165 | 140 - 440 K/uL | [facility] | | | Count | | | [facility] | | | | | | MEDICAL | | | | | | CENTER - | | | | | | LABORATORY | | + + + + + + | % | 62.8 | 45 - 75 % | [facility] | | | Neutrophils | | | [facility] | | | | | | MEDICAL | | | | | | CENTER - | | | | | | LABORATORY | | + + + + + + | % | 12.7 (L) | 20 - 45 % | [facility] | | | Lymphocytes | | | [facility] | | | | | | MEDICAL | | | | | | CENTER - | | | | | | LABORATORY | | + + + + + + | % Monocytes | 15.8 (H) | 4 - 12 % | [facility] | | | | | | [facility] | | | | | | MEDICAL | | | | | | CENTER - | | | | | | LABORATORY | | + + + + + + | % | 7.4 (H) | 0 - 5 % | [facility] | | | Eosinophils | | | [facility] | | | | | | MEDICAL | | | | | | CENTER - | | | | | | LABORATORY | | + + + + + + | % Basophils | 1.3 (H) | 0 - 1 % | [facility] | | | | | | [facility] | | | | | | MEDICAL | | | | | | CENTER - | | | | | | LABORATORY | | + + + + + + | Absolute | 2.4 | 1.5 - 6.6 K/uL | [facility] | | | Neutrophils | | | [facility] | | | | | | MEDICAL | | | | | | CENTER - | | | | | | LABORATORY | | + + + + + + | Absolute | 0.5 (L) | 0.6 - 3.2 K/uL | [facility] [...] [facility] | [address] | [place], [place] | [phone] | | [facility] | | [address] | | | - LABORATORY | | | | + + + + + | [facility] | [address] | [place], [place] | | | [facility] | | [address], [facility] | | | - LABORATORY | | | | + + + + + CA 19-9, Quant (10/05/2012 8:02 AM PDT) + + + + + + | Component | Value | Ref Range | Performed | Pathologist | | | | | At | Signature | + + + + + + | CA 19 9 | 10Comment: The Siemens | 0 - 37 U/mL | [facility] | | | | (formerly [employer]) [employer] | | [facility] | | | | Centaur immunoassay | [...] | | | | | | Performed: [facility], [address] | | | | | | [place], [place] | | | | | | [address] [place]: | | | | | | [id number] | | | | + + + + + + + + | Specimen | + + | | + + + + + + + | Performing | Address | City/State/Zipcode | Phone Number | | Organization | | | | + + + + + | [facility] | [address] | [place] | [phone] | | [facility] | | [address] | | | - LABORATORY | | | | + + + + + | [facility] | [address] | [place] | | | [facility] | | [address], [facility] | | | - LABORATORY | | | | + + + + + Comprehensive Metabolic Panel (10/05/2012 8:02 AM PDT) + + + + + + | Component | Value | Ref Range | Performed | Pathologist | | | | | At | Signature | + + + + + + | Glucose | 72 | 70 - 109 mg/dL | [facility] | | | | | | [facility] [...] + + + + | Alkaline | 158 (H) | 40 - 110 IU/L | [facility] | | | Phosphatase | | | [facility] | | | | | | MEDICAL | | | | | | CENTER - | | | | | | LABORATORY | | + + + + + + | AST | 25 | 10 - 42 IU/L | [facility] | | | | | | [facility] | | | | | | MEDICAL | | | | | | CENTER - | | | | | | LABORATORY | | + + + + + + | ALT | 17 | 6 - 45 IU/L | [facility] [...] + + + + | Total | 6.6 | 6.0 - 7.8 gm/dL | [facility] [...] + + + + | Creatinine | 0.79 | 0.60 - 1.30 | [facility] | [...] | GFR | -Americans, | | [facility] | | | | please multiply [...] + + + + | BUN/Creatin | 8.9 (L) | 12 - 20 | [facility] | | | ine Ratio | | | [facility] | | | | | | MEDICAL | | | | | | CENTER - | | | | | | LABORATORY | | + + + + + + | Na | 138 | 136 - 149 mEq/L | [facility] [...] + + + + | Cl | 102 | 98 - 109 mEq/l | [facility] | | | | | | [facility] | | | | | | MEDICAL | | | | | | CENTER - | | | | | | LABORATORY | | + + + + + + | CO2 | 28 | 24 - 31 mEq/L | [facility] [...] + | [facility] | [address] | [place] | [phone] | | [facility] | | [address] | | | - LABORATORY | | | | + + + + + | [facility] | [address] | [place], [place] | | | [facility] | | [address] | | | - LABORATORY | | | | + + + + + Lactate Dehydrogenase (10/05/2012 8:02 AM PDT) + +---------+ + + + | Component | Value | Ref Range | Performed | Pathologist | | | | | At | Signature | + +---------+ + + + | LDH TOTAL | 195 (H) | 91 - 180 IU/L | [...] + | [facility] | [address] | [place], [place] | [phone] | | [facility] | | [address] | | | - LABORATORY | | | | + + + + + | [facility] | [address] | [place], [place] | | | [facility] | | [address] [place] [address] | | | - LABORATORY | | | | + + + + + CBC with Differential (09/28/2012 7:44 AM PDT) + + + + + [...] + + + | White Blood | 3.8 (L) | 4.0 - 11.0 K/uL | [facility] | | | Cells | | | [facility] | | | | | | MEDICAL | | | | | | CENTER - | | | | | | LABORATORY | | + + + + + + | Red Blood | 4.43 | 3.70 - 5.20 | [facility] | | | Cells | | M/uL | [facility] | | | | | | MEDICAL | | | | | | CENTER - | | | | | | LABORATORY | | + + + + + + | Hemoglobin | 14.7 | 11.5 - 16.0 | [facility] | | | | | gm/dL | [facility] | | | | | | MEDICAL | | | | | | CENTER - | | | | | | LABORATORY | | + + + + + + | Hematocrit | 44.5 | 34.0 - 47.0 % | [facility] | | | | | | [facility] | | | | | | MEDICAL | | | | | | CENTER - | | | | | | LABORATORY | | + + + + + + | MCV | 100.6 | 83.0 - 101.0 fL | [facility] | | | | | | [facility] | | | | | | MEDICAL | | | | | | CENTER - | | | | | | LABORATORY | | + + + + + + | MCH | 33.3 | 28.0 - 35.0 pg | [facility] | | | | | | [facility] | | | | | | MEDICAL | | | | | | CENTER - | | | | | | LABORATORY | | + + + + + + | MCHC | 33.1 | 32.0 - 36.0 | [facility] | | | | | g/dL | [facility] | | | | | | MEDICAL | | | | | | CENTER - | | | | | | LABORATORY | | + + + + + + | RDW-CV | 21.7 (H) | <15.0 % | [facility] | | | | | | [facility] | | | | | | MEDICAL | | | | | | CENTER - | | | | | | LABORATORY | | + + + + + + | Platelet | 149 | 140 - 440 K/uL | [facility] | | | Count | | | [facility] | | | | | | MEDICAL | | | | | | CENTER - | | | | | | LABORATORY | | + + + + + + | % | 64.3 | 45 - 75 % | [facility] | | | Neutrophils | | | [facility] | | | | | | MEDICAL | | | | | | CENTER - | | | | | | LABORATORY | | + + + + + + | % | 15.5 (L) | 20 - 45 % | [facility] | | | Lymphocytes | | | [facility] | | | | | | MEDICAL | | | | | | CENTER - | | | | | | LABORATORY | | + + + + + + | % Monocytes | 15.0 (H) | 4 - 12 % | [facility] [...] + + + + | Absolute | 2.4 | 1.5 - 6.6 K/uL | [facility] | | | Neutrophils | | | [facility] | | | | | | MEDICAL | | | | | | CENTER - | | | | | | LABORATORY | | + + + + + + | Absolute | 0.6 | 0.6 - 3.2 K/uL | [facility] [...] + + + + | Absolute | 0.2 | 0.0 - 0.4 K/uL | [facility] | | | Eosinophils | | | [facility] | | | | | | MEDICAL | | | | | | CENTER - | | | | | | LABORATORY | | + + + + + + | Absolute | 0.0 | 0.0 - 0.1 K/uL | [facility] | | | Basophils | | | [...] [address] | [place] | [phone] | | [facility] | | [address] | | | - LABORATORY | | | | + + + + + | [facility] | [address] | [place] | | | [facility] | | [address], [facility] | | | - LABORATORY | | | | + + + + + CA 19-9, Quant (09/28/2012 7:44 AM PDT) + + + + + + | Component | Value | Ref Range | Performed | Pathologist | | | | | At | Signature | + + + + + + | CA 19 9 | 13Comment: The Siemens | 0 - 37 U/mL | [facility] | | | | (formerly [facility]) [employer] | | [facility] | | | | Centaur immunoassay | [...] | | | | [place] [address] [place], [place] | | | | | | [address] [place]: | | | | | | [id number] | | | | + + + + + + + + | Specimen | + + | | + + + + + + + | Performing | Address | City/State/Zipcode | Phone Number | | Organization | | | | + + + + + | [facility] | [address] | [place] | [phone] | | [facility] | | [address] | | | - LABORATORY | | | | + + + + + | [facility] | [address] | [place] | | | [facility] | | [address], [facility] | | | - LABORATORY | | | | + + + + + Comprehensive Metabolic Panel (09/28/2012 7:44 AM PDT) + + + + + + | Component | Value | Ref Range | Performed | Pathologist | | | | | At | Signature | + + + + + + | Glucose | 108 | 70 - 109 mg/dL | [facility] [...] + + + + | Alkaline | 113 (H) | 40 - 110 IU/L | [facility] | | | Phosphatase | | | [facility] | | | | | | MEDICAL | | | | | | CENTER - | | | | | | LABORATORY | | + + + + + + | AST | 22 | 10 - 42 IU/L | [facility] | | | | | | [facility] | | | | | | MEDICAL | | | | | | CENTER - | | | | | | LABORATORY | | + + + + + + | ALT | 17 | 6 - 45 IU/L | [facility] | | | | | | [facility] | | | | | | MEDICAL | | | | | | CENTER - | | | | | | LABORATORY | | + + + + + + | Bilirubin | 1.2 (H) | 0.2 - 1.0 mg/dL | [facility] [...] 10 | 7 - 18 mg/dL | [facility] | | | | | | [facility] | | | | | | MEDICAL | | | | | | CENTER - | | | | | | LABORATORY | | + + + + + + | Creatinine | 0.88 | 0.60 - 1.30 | [facility] | | | | | mg/dL | [facility] | | | | | | MEDICAL | | | | | | CENTER - | | | | | | LABORATORY | | + + + + + + | Estimated | >60Comment: For | >60 mL/min/A | [facility] | | | GFR | -Americans, | [...] + + + + | BUN/Creatin | 11.4 (L) | 12 - 20 | [facility] | | | ine Ratio | | | [facility] | | | | | | MEDICAL | | | | | | CENTER - | | | | | | LABORATORY | | + + + + + + | Na | 139 | 136 - 149 mEq/L | [facility] | | | | | | [facility] | | | | | | [facility] | | | | | | CENTER - | | | | | | LABORATORY | | + + + + + + | K | 4.7 | 3.5 - 5.1 mEq/l | [facility] | | | | | | [facility] | | | | | | MEDICAL | | | | | | CENTER - | | | | | | LABORATORY | | + + + + + + | Cl | 104 | 98 - 109 mEq/l | [facility] [...] + + + | Anion Gap | 10.7 | 6.0 - 17.0 | [facility] | [...] + | [facility] | [address] | [place] | [phone] | | [facility] | | [address] | | | - LABORATORY | | | | + + + + + | [facility] | [address] | [place] | | | [facility] | | [id number] | | | - LABORATORY | | | | + + + + + Lactate Dehydrogenase (09/28/2012 7:44 AM PDT) + +-------+ + + + | Component | Value | Ref Range | Performed | Pathologist | | | | | At | Signature | + +-------+ + + + | LDH TOTAL | 153 | 91 - 180 IU/L | [facility] [...] + + | Performing | Address | City/[facility] | Phone Number | | Organization | | | | + + + + + | [facility] | [address] | [place], [place] | [phone] | | [facility] | | [address] | | | - LABORATORY | | | | + + + + + | [facility] | [address] | [place], [place] | | | [facility] | | [id number], [facility] | | | - LABORATORY | | | | + + + + + CBC with Differential (09/14/2012 9:01 AM PDT) + + + + + [...] + + + | White Blood | 5.3 | 4.0 - 11.0 K/uL | [facility] | | | Cells | | | [facility] | | | | | | MEDICAL | | | | | | CENTER - | | | | | | LABORATORY | | + + + + + + | Red Blood | 4.30 | 3.70 - 5.20 | [facility] | | | Cells | | M/uL | [facility] | | | | | | MEDICAL | | | | | | CENTER - | | | | | | LABORATORY | | + + + + + + | Hemoglobin | 13.9 | 11.5 - 16.0 | [facility] | | | | | gm/dL | [facility] | | | | | | [facility] | | | | | | CENTER - | | | | | | LABORATORY | | + + + + + + | Hematocrit | 42.4 | 34.0 - 47.0 % | [facility] | | | | | | [facility] | | | | | | [facility]ICAL | | | | | | CENTER - | | | | | | LABORATORY | | + + + + + + | MCV | 98.6 | 83.0 - 101.0 fL | [facility] | | | | | | [facility] | | | | | | [facility] | | | | | | C[facility] - | | | | | | LABORATORY | | + + + + + + | MCH | 32.3 | 28.0 - 35.0 pg | [facility] [...] + + + + | RDW-CV | 23.8 (H) | <15.0 % | [facility] | | | | | | [facility] | | | | | | MEDICAL | | | | | | CENTER - | | | | | | LABORATORY | | + + + + + + | Platelet | 315 | 140 - 440 K/uL | [facility] | | | Count | | | [facility] | | | | | | MEDICAL | | | | | | CENTER - | | | | | | LABORATORY | | + + + + + + | % | 56.3 | 45 - 75 % | [facility] | | | Neutrophils | | | [facility] | | | | | | MEDICAL | | | | | | CENTER - | | | | | | LABORATORY | | + + + + + + | % | 29.2 | 20 - 45 % | [facility] | | | Lymphocytes | | | [facility] | | | | | | MEDICAL | | | | | | CENTER - | | | | | | LABORATORY | | + + + + + + | % Monocytes | 10.4 | 4 - 12 % | [facility] | | | | | | [facility] | | | | | | MEDICAL | | | | | | CENTER - | | | | | | LABORATORY | | + + + + + + | % | 2.8 | 0 - 5 % | [facility] | | | Eosinophils | | | [facility] | | | | | | MEDICAL | | | | | | CENTER - | | | | | | LABORATORY | | + + + + + + | % Basophils | 1.3 (H) | 0 - 1 % | [facility] | | | | | | [facility] | | | | | | MEDICAL | | | | | | CENTER - | | | | | | LABORATORY | | + + + + + + | Absolute | 3.0 | 1.5 - 6.6 K/uL | [facility] | | | Neutrophils | | | [facility] | | | | | | MEDICAL | | | | | | CENTER - | | | | | | LABORATORY | | + + + + + + | Absolute | 1.5 | 0.6 - 3.2 K/uL | [facility] | | | Lymphocytes | | | [facility] | | | | | | MEDICAL | | | | | | CENTER - | | | | | | LABORATORY | | + + + + + + | Absolute | 0.5 | 0.0 - 1.0 K/uL | [facility] [...] | + + + + + | [facility] | [address] | [place] | [phone] | | [facility] | | [address] | | | - LABORATORY | | | | + + + + + | [facility] | [address] | [place], [place] | | | [facility] | | [address], [facility] | | | - LABORATORY | | | | + + + + + CA 19-9, Quant (09/14/2012 9:01 AM PDT) + + + + + + | Component | Value | Ref Range | Performed | Pathologist | | | | | At | Signature | + + + + + + | CA 19 9 | 12Comment: The Siemens | 0 - 37 U/mL | [facility] | | | | (formerly [facility] | | [facility] | | | | Centaur immunoassay | [...] | | | | [address] [place] | | | | | | [address] CLIA: | | | | | | [id number] | | | | + + + + + + + + | Specimen | + + | | + + + + + + + | Performing | Address | City/State/Zipcode | Phone Number | | Organization | | | | + + + + + | [facility] | [address] | [place] | [phone] | | [facility] | | [address] | | | - LABORATORY | | | | + + + + + | [facility] | [address] | [place] | | | [facility] | | [address] | | | - LABORATORY | | | | + + + + + Comprehensive Metabolic Panel (09/14/2012 9:01 AM PDT) + + + + + + | Component | Value | Ref Range | Performed | Pathologist | | | | | At | Signature | + + + + + + | Glucose | 112 (H) | 70 - 109 mg/dL | [facility] | | | | | | [facility] | | | [facility] | [facility] | | | | | | [facility]ENTER - | | | | | | LABORATORY | | + + + + + + | Calcium | 9.0 | 8.3 - 10.5 | [facility] | | | | | mg/dL | [facility] | | | | | | [facility] | | | | | | CENTER - | | | | | | LABORATORY | | + + + + + + | Alkaline | 112 (H) | 40 - 110 IU/L | [facility] | | | Phosphatase | | | [facility] | | | | | | [facility] | | | | | | CENTER - | | | | | | LABORATORY | | + + + + + + | AST | 25 | 10 - 42 IU/L | [facility] | | | | | | [facility] | | | | | | [facility]ICAL | | | | | | CENTER - | | | | | | LABORATORY | | + + + + + + | ALT | 21 | 6 - 45 IU/L | [facility] [...] 8 | 7 - 18 mg/dL | [facility] | | | | | | [facility] | | | | | | [facility]ICAL | | | | | | CENTER - | | | | | | LABORATORY | | + + + + + + | Creatinine | 0.84 | 0.60 - 1.30 | [facility] | | | | | mg/dL | [facility] | | | | | | [facility]ICAL | | | | | | CENTER - | | | | | | LABORATORY | | + + + + + + | Estimated | >60Comment: For | >60 mL/min/A | [facility] | | | GFR | -Americans, | [...] + + + + | BUN/Creatin | 9.5 (L) | 12 - 20 | [facility] | | | ine Ratio | | | [facility] | | | | | | MEDICAL | | | | | | CENTER - | | | | | | LABORATORY | | + + + + + + | Na | 139 | 136 - 149 mEq/L | [facility] | | | | | | [facility] | | | | | | [facility]ICAL | | | | | | CENTER - | | | | | | LABORATORY | | + + + + + + | K | 4.3 | 3.5 - 5.1 mEq/l | [facility] [...] + + + + | CO2 | 30 | 24 - 31 mEq/L | [facility] | | | | | | [facility] | | | | | | [facility]ICAL | | | | | | CENTER - | | | | | | LABORATORY | | + + + + + + | Anion Gap | 10.3 | 6.0 - 17.0 | [facility] | [...] + | [facility] | [address] | [place] | [phone] | | [facility] | | [address] | | | - LABORATORY | | | | + + + + + | [facility] | [address] | [place], [place] | | | [facility] | | [address], [facility] | | | - LABORATORY | | | | + + + + + Lactate Dehydrogenase (09/14/2012 9:01 AM PDT) + +---------+ + + + | Component | Value | Ref Range | Performed | Pathologist | | | | | At | Signature | + +---------+ + + + | LDH TOTAL | 185 (H) | 91 - 180 IU/L | [...] | + + + + + | [facility] | [address] | [place] | [phone] | | [facility] | | [address] | | | - LABORATORY | | | | + + + + + | [facility] | [address] | [place] | | | [facility] | | [address] | | | - LABORATORY | | | | + + + + + documented in this encounter Visit Diagnoses Not on filedocumented in this encounter"
--- OUTSIDE RECORDS SUMMARY | ~2019-10-19 | XMS | Encounter Summary ---
Demographics + + + | Address | [address] | | | [place] [address] | + + + | Home Phone [...] + + + | Author | [facility] | + + + | Organization | [facility] | + + + | [...] Providers + +------+ + | Care Optical Engineer Name | Role | Phone | + +------+ + | Tomasa Wagner | PCP | | + +------+ + Reason for Visit + +--------+ + | Reason | Onset | Comments | | | Date | | + +--------+ + | Prior Authorization | 07/04/ | | | Request | 2012 | | + +--------+ + Encounter Details +--------+ + + + + | Date | Type | Department | Care Team | Description | +--------+ + + + + | 07/04/ | Telephone | Hematology/Medical | Elva Grey, | Prior Authorization | | 2012 | | Oncology at [facility] | [address] | Request | | | | [address] [facility] | [facility] [address] | | | | | Mailcode: CH7M | [place] [address] | | | | | [facility] | [phone] | | | | | and Brittny, | | | | | | [facility] | | | | | | [place], [place] | | | | | | [address] | | | | | | [phone] | | | +--------+ + + + [...] this encounter Miscellaneous Notes Telephone Encounter - Latoya Goodson RN - 07/04/2012 3:28 PM PDTLM on specified phone a dvising pt best approach is to discuss with staff in Dr. Najera's office-this may be an error or issue with coding issue and easily remedied; also advised infusion dresser tender obtain ins urance authorization for every drug administered so she can ask that office to review the au thorization they received prior to initiation of therapy. Assured her oncologist's office wi ll be anxious to assist her with any insurance issues. elephone Encounter - Jihan Hand - 07/04/2012 2:46 P M PDTPatient calls to report she is having trouble with her insurance and the authorization for the Xeloda and gemzar treatment that Dr. Grey recommended. She reports she is gettin g this treatment locally at Dr. Najera's office, she reports she has already started kwasi th the IV therapy and the oral medications. She reports she just got a letter in the mail s tating the services would not be covered as it was being prescribed for a non indicated use. She then received a second letter stating the appeal was upheld. I advised her to connect with Dr. Najera's office to discuss, their office would be the managing any authorizat ions or appeals on her behalf as they are the ordering MD. I told her I would be glad to al ert the RN and MD so that they are aware and if there is anything our office can do to suppo rt her appeal of this decision we would be glad to assist. She would like to discuss with jovon whiting RN, please call to advise. documented in this encounter Plan of Treatment Not on filedocumented as of this encounter Visit Diagnoses Not on filedocumented in this encounter"
--- OUTSIDE RECORDS SUMMARY | ~2019-10-19 | XMS | Clinical Summary ---
Demographics + + + | Address | [address] | | | [place] [address] | + + + | Home Phone | | + + + | Preferred Language | Unknown | + + + | Marital Status | Single | + + + | Scientology Affiliation | NON | + + + [...] Team Providers + +------+ + | Care Notching Machine Operator Name | Role | Phone | + +------+ + | Valeriy Carmona MD | PCP | | + +------+ + Source Comments GWEN is fully live on both EpicCare Ambulatory and EpicCare InPatient.[facility] Allergies + + + + + + [...] [facility] at . | | [facility] in [place]. -04/26/2012: R0 Resection. | | -05/31/2012-09/03/2012 Chemotherapy: [...] + + | Influenza (Flu) | | 12/28/19 | | | vaccination (#1) | 9 | 18, | | | | | 02/01/20 | | | | | 17, | | | | | 03/08/19 | | | | | 17, | | | | | Addition | | | | | al | | | | | history | | | | | exists | | + + + + + | Pneumococcal | Aged Out | 12/11/19 | No longer eligible based on patient's age | | vaccination | | 03 | to complete this topic | + + + + + [...] [place] OF [place] | BLUE | [id number] | 02/14/19 | [phone] | [address] | PPO | | | CROSS | | 16-Pre | 8 | [address] | | | | [place] | | sent | | [place], | | | | [place] | | | | [place] [address] | | + +--------+ +--------+ + +--------+ | [facility] | [facility] | [id number] | 02/14/19 | | | Agency | [...] Person | Self | [birth year] | [address] | | | al/Fam | | 1960 | [phone] | [place] | | | jose alejandro | | | 5 (Home) | [address] | + +--------+ +--------+ + + | Aura Upton | Agency | Self | [birth year] | | [address] | | | | | 1960 | [phone] | [place] | | | | | | 5 (Home) | [address] | + +--------+ +--------+ + + Advance Directives + + + + + | Type | Date Recorded | Patient | Explanation | | | | Customs Inspector | | + + + + + | Advance | | | | | Directives and | | | | | Living Will | | | | + + + + + | Power of | | | | | Senior Environmental Practice Leader | | | | + + + [...]
--- OUTSIDE RECORDS SUMMARY | ~2019-10-19 | XMS | Encounter Summary ---
Demographics + + + | Address | [address] | | | [place] [address] | + + + | Home Phone | | + + + | Preferred Language | Unknown | + + + | Marital Status | | + + + | Church Affiliation | Unknown | + + + | Race | White | + + + | Ethnic Group | Not or | + + + Author + + + | Author | [facility] | | | and [place] | + + + | Organization | [facility] | | | and [place] | + + + | Address | Unknown | + + + | Phone | Unavailable | + + + Support + + + + + | Name | Relationship | Address | Phone | + + + + + | Poncho Oquendo | ECON | [address] | | | | | [place] | | | | | [address] | | + + + + + | Marta [place] | ECON | [place] | | | | | [address] | | + + + + + Care Team Providers + +------+ + | Care Dye Padder Operator Name | Role | Phone | [...] 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, | W Manning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 | MD [address] | [place], | | | | | (HCC) | [address] | [place] [address] | | | | | Procedures | [address] | Phone: | | | | | ID | OBED, | [phone] | | | | | DIPHENHYDRAM | [place] [address] | Fax: | | | | | INE HCL | Phone: | [phone] | | | | | INJECTIO, 50 | [phone] | | | | | | MG ID | Fax: | | | | | | ONDANSETRON | [phone] | | | | | | HCL | | | | | | | INJECTION, 1 | | | | | | | MG ID | | | | | | | DEXAMETHASON | | | | | | | E SODIUM | | | | | | | PHOS, 1 MG | | | | | | | ID | | | | | | | FOSAPREPITAN | | | | | | | T INJECTION, | | | | | | | 1 MG ID | | | | | | | LORAZEPAM | | | | | | | INJECTION, 2 | | | | | | | MG ID | | | | | | | GEMCITABINE | | | | | | | HCL | | | | | | | INJECTION, | | | | | | | 200 MG ID | | | | | | | CISPLATIN 10 | | | | | | | MG | | | | | | | INJECTION | | | | | | | ID | | | | | | | METHYLPREDNI | | | | | | | SOLONE | | | | | | | INJECTION, | | | | | | | 125 MG ID | | | | | | | ADRENALIN | | | | | | | EPINEPHRINE | | | | | | | INJECT, .1 | | | | | | | MG ID | | | | | | | FILGASTIM | | | | | | | (ZARXIO) 300 | | | | | | | MCG/0.5ML | | | | | | | SOSY, PER 1 | | | | | | | MCG ID | | | | | | | INJECTION, | | | | | | | FAMOTIDINE, | | | | | | | 20 MG ID | | | | | | | NORMAL | | | | | | | SALINE | | | | | | | SOLUTION | | | | | | | INFUS, 500 | | | | | | | ML ID | | | | | | | NORMAL | | | | | | | SALINE | | | | | | | SOLUTION | | | | | | | INFUS, 250 | | | | | | | ML ID | | | | | | | STERILE | | | | | | | WATER/SALINE | | | | | | | , 10 ML ID | | | | | | | CHEMOTHER, | | | | | | | IV PUSH,EA | | | | | | | ADD DRUG ID | | | | | | | CHEMOTHER, | | | | | | | IV INFUSION, | | | | | | | 1 HR ID | | | | | | | CHEMOTHER, | | | | | | | IV INFUSION, | | | | | | | EA HR ID | | | | | | | CHEMOTHER,NO | | | | | | | N-HORMONE | | | | | | | ANTI-NEOPL, | | | | | | | SUB-Q/IM ID | | | | | | | [...] + + | 05/27/ | Hospital | [facility] | Vladimir Robles, | Canceled (Clinic | | 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 | MED CTR CHEMO | MD [address] | and/or Provider | | | | INFUSION [address] [place], | Cancellation) | | | | [place], | [place] [address] | | | | | [place] [address] | [phone] | | | | | [phone] | | | +--------+ + + + [...] [facility] | | | | | | [place] [address] | | | | | | [phone] | | | | | | | | +--------+---------+ + + + documented as of this encounter Visit Diagnoses Not on filedocumented in this encounter"
--- OUTSIDE RECORDS SUMMARY | ~2019-10-19 | XMS | Encounter Summary ---
Demographics + + + | Address | [address] | | | [place] [address] | + + + | Home Phone | | + + + | Preferred Language | Unknown | + + + | Marital Status | Single | + + + | Roman Catholic Affiliation | NON | + + [...] Team Providers + +------+ + | Care Laboratory Machinist Name | Role | Phone | + +------+ + PCP | Unavailable | + +------+ + Encounter Details +--------+ + + + + | Date | Type | Department | Care Team | Description | +--------+ + + + + | 04/11/ | Abstract | Dig[facility]ive Health | Tai Stanton, | | | 2012 | | [place] [address] | [address] [facility] [address] | | | | | Eric[place]on Faria johanne [place] | [facility] | | | | | for Health and | [place], [place] | | | | | [facility] | [address] | | | | | [place], [place] | [phone] | | | | | [address] | | | | | | [phone] | | | +--------+ + + + [...]
--- OUTSIDE RECORDS SUMMARY | ~2019-10-19 | XMS | Encounter Summary ---
Demographics + + + | Address | [address] | | | [place] [address] | + + + | Home Phone | | + + + | Preferred Language | Unknown | + + + | Marital Status | | + + + | Evangelical Affiliation | Unknown | + + + | Race | White | + + + | Ethnic Group | Not or | + + + Author + + + | Author | [facility] | | | and [place] | + + + | Organization | [facility] | | | and [place] | + + + | Address | Unknown | + + + | Phone | Unavailable | + + + Support + + + + + | Name | Relationship | Address | Phone | + + + + + | Poncho Oquendo | ECON | [address] | | | | | [place] | | | | | [address] | | + + + + + | Marta Upton | ECON | [place] | | | | | [address] | | + + + + + Care Team Providers + +------+ + | Care Artificial Pearl Maker Name | Role | Phone | + +------+ + | Valeriy Carmona DO | TAWNYA | | + +------+ + Encounter Details +--------+ + + + + | Date | Type | Department | Care Team | Description | +--------+ + + + + | 05/07/ | Orders Only | [facility] | Marcelina Johnson, | | | 2016 | | MED CTR CHEMO | RN | | | | | INFUSION [address] | | | | | | [place], | | | | | | [place] [address] | | | | | | [phone] | | | +--------+ + + + [...] [facility] | | | | | | [place] [address] | | | | | | [phone] | | | | | | | | +--------+---------+ + + + documented as of this encounter Visit Diagnoses Not on filedocumented in this encounter"
--- OUTSIDE RECORDS SUMMARY | ~2019-10-19 | XMS | Encounter Summary ---
Demographics + + + | Address | [address] | | | [place] [address] | + + + | Home Phone | | + + + | Preferred Language | Unknown | + + + | Marital Status | | + + + | Sabianism Affiliation | Unknown | + + + | Race | White | + + + | Ethnic Group | Not or | + + + Author + + + | Author | [facility] | | | and [place] | + + + | Organization | [facility] | | | and [place] | + + + | Address | Unknown | + + + | Phone | Unavailable | + + + Support + + + + + | Name | Relationship | Address | Phone | + + + + + | Poncho Oquendo | ECON | [address] | | | | | [place] | | | | | [address] | | + + + + + | Marta Upton | ECON | [place] | | | | | [address] | | + + + + + Care Team Providers + +------+ + | Care Contractor Broomcorn Threshing Name | Role | Phone | + +------+ + PCP | Unavailable | + +------+ + Encounter Details +--------+ + + + + | Date | Type | Department | Care Team | Description | +--------+ + + + + | 07/15/ | Hospital | [facility] | | | | 2000 | Encounter | MED CTR GENERIC OP | | | | | | CONV DEPT [address] | | | | | | [place], | | | | | | [place] [address] | | | | | | [phone] | | | +--------+ + + + [...] [facility] | | | | | | [facility] [address] | | | | | | [phone] | | | | | | | | +--------+---------+ + + + documented as of this encounter Visit Diagnoses Not on filedocumented in this encounter"
--- OUTSIDE RECORDS SUMMARY | ~2019-10-19 | XMS | Encounter Summary ---
Demographics + + + | Address | [address] | | | [place] [address] | + + + | Home Phone | | + + + | Preferred Language | Unknown | + + + | Marital Status | Single | + + + | Presybeterian Affiliation | NON | + + + [...] | + + +---------+ + | Elsy López | ECON | Unknown | | + + +---------+ + Care Team Providers + +------+ + | Care Seed Sales Manager Name | Role | Phone | + +------+ + | Tomasa Wagner | PCP | | + +------+ + Reason for Visit + +--------+ + | Reason | Onset | Comments | | | Date | | + +--------+ + | Refill Encounters | 08/21/ | | | | 2013 | | + +--------+ + Encounter Details +--------+ + + + + | Date | Type | Department | Care Team | Description | +--------+ + + + + | 08/21/ | Telephone | Dig[facility]ive Health | Tai Stanton, | Refill Encounters | | 2013 | | [place] [address] | [place] [address] [facility] | | | | | [facility] | [facility] | | | | | [facility] and | [place], [place] | | | | | [facility] [address] | [address] | | | | | [place], [place] | [phone] | | | | | [address] | | | | | | [phone] | | | +--------+ + + + [...] this encounter Miscellaneous Notes Telephone Encounter - Beth Osorio MA - 08/22/2013 12:03 PM PDTnotedElectronically sign ed by Beth Osorio MA at 08/22/2013 12:03 PM PDTTelephone Encounter - Rukhsana Paul - 08/22/2013 11:57 AM PDTPatient returned call. RN's message relayed to patient. Patient was thankful for the information and understood and agreed to contact her PCP for further refill s. No further questions at this time. Electronically signed by Rukhsana Paul at 11:59 AM PDTTelephone Encounter - Liz Hamilton RN - 08/22/2013 10:[address] Chaney ppard pt can have one more refill since she's out but will need to get future refills from P CP (since we haven't seen her in awhile). Rx sent to pharmacy. Left message on voice mail fo r patient. elephone Encounter - Epifanio Trujillo - 08/21/2013 2:48 PM Desi lópez calling to request refill of GABAPE NTIN (capsule) NEURONTIN 300 mg Take 1 capsule by mouth two times daily. Indications: Neurop athic Pain Surgery/Procedure: No Patient will be out of this medication in 0 days. Patient is out now Patient is taking 1 cap twice every day What is your pain scale: Pain was not scaled Can you order picker the script if need to or should it be mailed?: Please send to listed phar kinza: [facility] [place] [address] Patient informed there is a 72 hour refill policy. Patient requests call back when this is complete. Is it alright to leave a detailed message? Yes Pharmacy: Pharmacy Preferences: [facility] documented in this encounte r Plan of Treatment Not on filedocumented as of this encounter Visit Diagnoses Not on filedocumented in this encounter"
--- OUTSIDE RECORDS SUMMARY | ~2019-10-19 | XMS | Encounter Summary ---
Demographics + + + | Address | [address] | | | [place] [address] | + + + | Home Phone | | + + + | Preferred Language | Unknown | + + + | Marital Status | Single | + + + | Amish Affiliation | NON | + + + | Race | White | + + + | Ethnic Group | Not or | + + + Author + + + | Author | [facility] | + + + | Organization | [facility] | + + + | Address | [...] Providers + +------+ + | Care Paper Tester Name | Role | Phone | + +------+ + PCP | Unavailable | + +------+ + Encounter Details +--------+ + + + + | Date | Type | Department | Care Team | Description | +--------+ + + + + | 04/07/ | Cleat Feeder | Digestive Health | Tai Stanton, | Gallbladder cancer | | 2012 | | Center at [facility] [address] | [address] [facility] | (HCC) (Primary Dx) | | | | [facility] | [facility] | | | | | for Health and | [place], [place] | | | | | [facility], [address] | [address] | | | | | [place], [place] | [phone] | | | | | [address] | | | | | | [phone] | | | +--------+ + + + [...] | + +--------+ + + + | PATHOLOGY CONSULT - | Routin | 03/29/2012 | Gallbladder cancer | Results for this | | REVIEW OUTSIDE | e | | (HCC) | procedure are in the | | SLIDES | | | | results section. | + +--------+ + + + documented in this encounter Results PATHOLOGY CONSULT - REVIEW OUTSIDE SLIDES (03/29/2012) + + + + + + | Component | Value | Ref Range | Performed | Pathologist | | | | | At | Signature | + + + + + + | PATHOLOGY | SOURCE OF SPECIMEN:A | | [facility] | | | CONSULT - | Gallbladder, | | DEPARTMENT | | | SLIDES | cholecystectomy | | OF | | | | Materials | | PATHOLOGY | | | | Received:Referring | | | | | | Institution: [facility] | | | | | | [facility] | | | | | | [facility] [place] | | | | | | Lab,[place], [place] | | | | | | [id number] Accession | | | | | | Number: [id number] | | | | | | Collection Date: | | | | | | 03/29/2012Sublabeled | | | | | | | | | | | | H&E IHC | | | | | | A1 to A4 | | | | | | 4 | | | | | | 10 | | | | | | Final Pathologic | | | | | | Diagnosis:Gallbladder, | | | | | | cholecystectomy: - | | | | | | 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 | | | | | | (seecomment) - | | | | | | Depth of invasion: | | | | | | Extending to the | | | | | | subserosal connective | | | | | | tissue - Extending | | | | | | to within less than 0.1 | | | | | | cm of inked serosal | | | | | | margin - Cystic | | | | | | duct margin negative by | | | | | | report - Extensive | | | | | | angiolymphatic invasion | | | | | | identified - AJCC | | | | | | 7th edition pathologic | | | | | | stage pT2 Nx | | | | | | Comment: We appreciate | | | | | | the opportunity to | | | | | | review this case and | | | | | | agree withthe referring | | | | | | pathologist's | | | | | | observations. Sections | | | | | | from the gallbladdershow | | | | | | a deeply infiltrative | | | | | | population of 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| | | | | cells characterized | | | | | | byhigh nuclear to | | | | | | cytoplasm ratios and | | | | | | frequent mitotic | | | | | | figures. Some | | | | | | ofmalignant cells are | | | | | | arranged in trabecula | | | | | | and nests, and have | | | | | | cellularfeatures of | | | | | | nuclear molding and | | | | | | scant cytoplasm; all of | | | | | | which are featuresof | | | | | | small cell carcinoma. | | | | | | Other areas have | | | | | | larger cells with | | | | | | nuclearnucleoli. | | | | | | The provided stains, | | | | | | synaptophysin, NSE, and | | | | | | chromogranin, | | | | | | arestrongly positive in | | | | | | both 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| | | | | populations. There are | | | | | | adenomatouschanges in | | | | | | the background |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 epithelium, | | | | | | which supports a | | | | | | primarygallbladder | | | | | | malignancy. Case | | | | | | seen by:Yasmine Oseguera | | | | | | Maycol Piper/Surgical | | | | | | Pathology FellowPeter | | | | | | Sebastian Severino, | | | | | | Ph.D./Surgical | | | | | | Pathologist | | | | | | Clinical History:The | | | | | | patient is a 51 year old | | | | | | female. My | | | | | | [...] Diagnostician: | | | | | | Alton Cortes | | | | | | MaycolPathologistElectroni | | | | | | analia Signed 04/14/2012 | | | | | | 1:38PM | | | | + + + + + + + + | Specimen | + + | Slide | + + + + + + + | Performing | Address | City/State/Zipcode | Phone Number | | Organization | | | | + + + + + | 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
--- OUTSIDE RECORDS SUMMARY | ~2019-10-19 | XMS | Encounter Summary ---
Demographics + + + | Address | [address] | | | [place] [address] | + + + | Home Phone [...] + + + | Author | [facility] | + + + | Organization | [facility] | + + + | [...] Team Providers + +------+ + | Care Remelt Pan Tank Operator Name | Role | Phone | + +------+ + | Tomasa Wagner | PCP | | + +------+ + Encounter Details +--------+ + + + + | Date | Type | Department | Care Team | Description | +--------+ + + + + | 05/24/ | MyChart | [facility] | Miguel Seymour, | RE: Share Info with | | 2014 | Encounter | [facility] | [address] | Dr. Tai Stanton | | | | [place] [address] | [facility] | | | | | [address] | [place], [place] | | | | | [place], [facility] floor | [address] | | | | | [place], [place] | [phone] | | | | | [address] | | | | | | [phone] | | | +--------+ + + + [...]
--- OUTSIDE RECORDS SUMMARY | ~2019-10-19 | XMS | Encounter Summary ---
Demographics + + + | Address | [address] | | | [place] [address] | + + + | Home Phone [...] + + + | Author | [facility] | + + + | Organization | [facility] | + + + | [...] Providers + +------+ + | Care Manager Ct Name | Role | Phone | + +------+ + | Valeriy Carmona MD | PCP | | + +------+ + Encounter Details +--------+ + + + + | Date | Type | Department | Care Team | Description | +--------+ + + + + | 06/09/ | Pharmacy | Outpatient Retail | | | | 2014 | Visit | [facility] | | | | | | [address] | | | | | | [address] [place], [place] | | | | | | [address] | | | | | | [phone] | | | +--------+ + + + [...]
--- OUTSIDE RECORDS SUMMARY | ~2019-10-19 | XMS | Encounter Summary ---
Demographics + + + | Address | [address] | | | [place] [address] | + + + | Home Phone | | + + + | Preferred Language | Unknown | + + + | Marital Status | | + + + | Hoahaoism Affiliation | Unknown | + + + | Race | White | + + + | Ethnic Group | Not or | + + + Author + + + | Author | [facility] | | | and [place] | + + + | Organization | [facility] | | | and [place] | + + + | Address | Unknown | + + + | Phone | Unavailable | + + + Support + + + + + | Name | Relationship | Address | Phone | + + + + + | Poncho Oquendo | ECON | [address] | | | | | [place] | | | | | [address] | | + + + + + | Marta Upton | ECON | [place] | | | | | [address] | | + + + + + Care Team Providers + +------+ + | Care Propulsion Systems Engineer Name | Role | Phone | + +------+ + | Valeriy Carmona DO | TAWNYA | | + +------+ + Encounter Details +--------+ + + + + | Date | Type | Department | Care Team | Description | +--------+ + + + + | 07/01/ | Abstract | [facility] | Nelda Fuchs, | | | 2014 | | [facility] | [facility] [address] | | | | | [address] | [place], [place] | | | | | [place] [address] | [id number] | | | | | [phone] | | | +--------+ + + + [...] documented as of this encounter Progress Notes Shila Nelda L, [facility] - 07/01/2014 1:37 PM PDTFormatting of this note might be different fro m the original. IDT PATIENT MEDICATION/PROFILE REVIEW [facility] Pharmacy Recommendation __XX__ Information only Pharmacy Assessment Therapy emetogenicity risk vs. supportive meds ordered: high/appropriate Drug interactions of concern: none Allergy/Duplicate/Contraindications/Other: none Lab-based dose adjustments suggested: none VTE Risk Factors Identified: VTE risk(s) in this patient include none -Khorana risk score=0 (risk of symptomatic VTE 0.8-3%): No recommended actions at this time. Cardiac toxicity risks/recommended monitoring: none Objective Data Aura Upton is a 53 y.o. female , Wt 84.3 kg , Ht 162 cm , BSA 1.95 m2, BMI 32. 12 kg/m2, Est CrCl = 110 ml/min (Schrader-Gina Equation) Allergies : Sulfa antibiotics Diagnosis: Stage IIIA extrahepatic cholangiocarcinoma Treatment Regimen: Gemcitabine: IV: 1250 mg/m2/dose days 1 and 8 [total dose/cycle = 2500 mg/m2] Cisplatin: IV: 75 mg/m2/dose day 1 [total dose/cycle = 75 mg/m2] Repeat cycle every 3 weeks Chemotherapy/Supportive therapy: Ondansetron Dexamethasone Fosaprepitant Lorazepam Cisplatin Gemcitabine Reference/citation for therapy: Stefano S, Callie S, Corby Soler, et al, "Phase II S tudy of Gemcitabine and Cisplatin as First-Line Chemotherapy in Inoperable Biliary Tract Car cinoma," Lindsay Oncol, 2005, 16(2):279-81. 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 docusate calcium (SURFAK) 240 mg capsule Take 240 mg by mouth as needed. fish oil 1,000 mg capsule Take 1,000 mg by mouth Daily. HYDROcodone-acetaminophen (VICODIN) 5-500 mg per tablet Take 1 tablet by mouth every 4 hours as needed. MULTIPLE VITAMIN PO Take by mouth Daily. Probiotic Product (PROBIOTIC DAILY PO) Take by mouth Daily. No current facility-administered medications on file prior to visit. Most recent pertinent baseline labs: WBC Date Value Ref Range Status 03/18/2014 9.6 4.0-11.0 K/uL Final Absolute Neutrophils Date Value Ref Range Status 03/18/2014 6.80 1.80-8.50 K/uL Final Platelet Count Date Value Ref Range Status 03/18/2014 246 140-440 K/uL Final Hgb Date Value Ref Range Status 03/18/2014 14.8 11.5-16.0 g/dL Final Hct Date Value Ref Range Status 03/18/2014 44.3 34.0-47.0 % Final Creatinine, Serum/Plasma Date Value Ref Range Status 03/18/2014 0.71 0.60-1.30 mg/dL Final BILIRUBIN TOTAL Date Value Ref Range Status 03/18/2014 0.7 0.1-1.5 mg/dL Final AST Date Value Ref Range Status 03/18/2014 60* 10-42 U/L Final ALT Date Value Ref Range Status 03/18/2014 70* 6-45 U/L Final Electronically signed by: Nelda Fuchs RPH 07/01/2014 13:37 documented in this en counter Plan of Treatment +--------+---------+ + + + | Date | Type | Specialty | Care Team | Description | +--------+---------+ + + + | 10/29/ | Office | Urology | Pedro Green, | | | 2019 | Visit | | DO [address] | | | | | | [place] [address] | | | | | | [phone] | | | | | | | | +--------+---------+ + + + documented as of this encounter Visit Diagnoses Not on filedocumented in this encounter
--- OUTSIDE RECORDS SUMMARY | ~2019-10-19 | XMS | Encounter Summary ---
Demographics + + + | Address | [address] | | | [place] [address] | + + + | Home Phone [...] | Author | [facility] | | | and [place] | + + + | Organization | [facility] | | | and [place] | + + + | Address | Unknown | + + + | Phone | Unavailable | + + + Support + + + + + | Name | Relationship | Address | Phone | + + + + + | Poncho Oquendo | ECON | [address] | | | | | [place] | | | | | [address] | | + + + + + | Marta Upton | ECON | [place] | | | | | [address] | | + + + + + Care Team Providers + +------+ + | Care Receiving Weigher Name | Role | Phone | + +------+ + PCP | Unavailable | + +------+ + Encounter Details +--------+ + + + + | Date | Type | Department | Care Team | Description | +--------+ + + + + | 03/19/ | Hospital | [facility] | | | | 2013 | Encounter | [facility] | | | | | [facility] [address] | | | | | | [place] | | | | | | [address] | | | | | | [phone] | | | +--------+ + + + [...] [place] | | | | | | [place] [address] | | | | | | [phone] | | | | | | | | +--------+---------+ + + + documented as of this encounter Procedures + +--------+ + + + | Procedure Name | Priori | Date/Time | Associated Diagnosis | Comments | | | ty | | | | + +--------+ + + + | CA 19-9, QUANT | Routin | 03/19/2013 | | Results for this | | | e | 12:12 PM | | procedure are in the | | | | PST | | results section. | + +--------+ + + + | CBC WITH | Routin | 03/19/2013 | | Results for this | | DIFFERENTIAL | e | 12:12 PM | | procedure are in the | | | | PST | | results section. | + +--------+ + + + | LACTATE | Routin | 03/19/2013 | | Results for this | | DEHYDROGENASE | e | 12:12 PM | | procedure are in the | | | | PST | | results section. | + +--------+ + + + | CEA | Routin | 03/19/2013 | | Results for this | | | e | 12:12 PM | | procedure are in the | | | | PST | | results section. | + +--------+ + + + | COMPREHENSIVE | Routin | 03/19/2013 | | Results for this | | METABOLIC PANEL | e | 12:12 PM | | procedure are in the | | | | PST | | results section. | + +--------+ + + + documented in this encounter Results CBC with Differential (03/19/2013 12:12 PM PST) + +-------+ + + + | Component | Value | Ref Range | Performed | Pathologist | | | | | At | Signature | + +-------+ + + + | MANUAL | NO | | [facility] | | | DIFFERENTIA | | | [facility] | | | L ? | | | MEDICAL | | | | | | CENTER - | | | | | | LABORATORY | | + +-------+ + + + | White Blood | 4.9 | 4.0 - 11.0 K/uL | [facility] | | | Cells | | | [facility] | | | | | | MEDICAL | | | | | | CENTER - | | | | | | LABORATORY | | + +-------+ + + + | Red Blood | 4.77 | 3.70 - 5.20 | [facility] | | | Cells | | M/uL | [facility] | | | | | | MEDICAL | | | | | | CENTER - | | | | | | LABORATORY | | + +-------+ + + + | Hemoglobin | 14.1 | 11.5 - 16.0 | [facility] | | | | | gm/dL | [facility] | | | | | | MEDICAL | | | | | | CENTER - | | | | | | LABORATORY | | + +-------+ + + + | Hematocrit | 41.8 | 34.0 - 47.0 % | [facility] | | | | | | [facility] | | | | | | MEDICAL | | | | | | CENTER - | | | | | | LABORATORY | | + +-------+ + + + | MCV | 87.7 | 83.0 - 101.0 fL | [facility] | | | | | | [facility] | | | [facility] | | MEDICAL | | | | | | CENTER - | | | | | | LABORATORY | | + +-------+ + + + | MCH | 29.5 | 28.0 - 35.0 pg | [facility] | | | | | | [facility] | | | | | | MEDICAL | | | | | | CENTER - | | | | | | LABORATORY | | + +-------+ + + + | MCHC | 33.6 | 32.0 - 36.0 | [facility] | | | | | g/dL | [facility] | | | | | | MEDICAL | | | | | | CENTER - | | | | | | LABORATORY | | + +-------+ + + + | RDW-CV | 12.7 | <15.0 % | [facility] | | | | | | [facility] | | | | | | MEDICAL | | | | | | CENTER - | | | | | | LABORATORY | | + +-------+ + + + | Platelet | 187 | 140 - 440 K/uL | [facility] | | | Count | | | [facility] | | | | | | MEDICAL | | | | | | CENTER - | | | | | | LABORATORY | | + +-------+ + + + | % | 57.7 | 45 - 75 % | [facility] | | | Neutrophils | | | [facility] | | | | | | MEDICAL | | | | | | CENTER - | | | | | | LABORATORY | | + +-------+ + + + | % | 29.5 | 20 - 45 % | [facility] | | | Lymphocytes | | | [facility] | | | | | | MEDICAL | | | | | | CENTER - | | | | | | LABORATORY | | + +-------+ + + + | % Monocytes | 9.1 | 4 - 12 % | [facility] [...] + + + | % Basophils | 0.9 | 0 - 1 % | [facility] | | | | | | [facility] | | | | | | MEDICAL | | | | | | CENTER - | | | | | | LABORATORY | | + +-------+ + + + | Absolute | 2.8 | 1.5 - 6.6 K/uL | [facility] | | | Neutrophils | | | [facility] | | | | | | [facility] | | | | | | CENTER - | | | | | | LABORATORY | | + +-------+ + + + | Absolute | 1.4 | 0.6 - 3.2 K/uL | [facility] | | | Lymphocytes | | | [facility] | | | | | | MEDICAL | | | | | | CENTER - | | | | | | LABORATORY | | + +-------+ + + + | Absolute | 0.4 | 0.0 - 1.0 K/uL | [facility] | | | Monocytes | | | [facility] | | | | | | MEDICAL | | | | | | CENTER - | | | | | | LABORATORY | | + +-------+ + + + | Absolute | 0.1 | 0.0 - 0.4 K/uL | [facility] | | | Eosinophils | | | [facility] | | | | | | MEDICAL | | | | | | CENTER - | | | | | | LABORATORY | | + +-------+ + + + | Absolute | 0.0 [...] + | [facility] | [address] | [place], [place] | [phone] | | [facility] | | [address] | | | - LABORATORY | | | | + + + + + | [facility] | [address] | [place], [place] | | | [facility] | | [id number] [place] [address] | | | - LABORATORY | | | | + + + + + CEA (03/19/2013 12:12 PM PST) + + + + + + | Component | Value | Ref Range | Performed | Pathologist | | | | | At | Signature | + + + + + + | CEA | 0.8Comment: Testing | 0.0 - 10.0 | [facility] | | | | performed on the [employer] | ng/mL | [facility] | | | | [facility] | | MEDICAL | | | | Analyzer. Results | | CENTER - | | | | obtained with different | | LABORATORY | | | | assay methods or kits | | | | | | cannot be used | | | | | | interchangeably. | | | | + + + + + + + + | Specimen | + + | | + + + + + + + | Performing | Address | City/State/Zipcode | Phone Number | | Organization | | | | + + + + + | [facility] | [address] | [place], [place] | [phone] | | [facility] | | [address] | | | - LABORATORY | | | | + + + + + | [facility] | [address] | [place], [place] | | | [facility] | | [address] | | | - LABORATORY | | | | + + + + + CA -9, Quant (03/19/2013 12:12 PM PST) + + + + + + | Component | Value | Ref Range | Performed | Pathologist | | | | | At | Signature | + + + + + + | CA 19 9 | 14Comment: The Siemens | 0 - 37 U/mL | [facility] | | | | (formerly [employer] | | [facility] | | | | [employer] immunoassay | | MEDICAL | | | [...] [address] | | | | | | [address], [place], [place] | | | | | | [address] CLIA: | | | | | | [id number] | | | | + + + + + + + + | Specimen | + + | | + + + + + + + | Performing | Address | City/State/Zipcode | Phone Number | | Organization | | | | + + + + + | [facility] | [address] | [place], [place] | [phone] | | [facility] | | [address] | | | - LABORATORY | | | | + + + + + | [facility] | [address] | [place], [place] | | | [facility] | | [address], [facility] | | | - LABORATORY | | | | + + + + + Comprehensive Metabolic Panel (03/19/2013 12:12 PM PST) + + + + + + | Component | Value | Ref Range | Performed | Pathologist | | | | | At | Signature | + + + + + + | Glucose | 93 | 70 - 109 mg/dL | [facility] [...] + + + + | Alkaline | 163 (H) | 40 - 110 IU/L | [facility] | | | Phosphatase | | | [facility] | | | | | | MEDICAL | | | | | | CENTER - | | | | | | LABORATORY | | + + + + + + | AST | 27 | 10 - 42 IU/L | [facility] | | | | | | [facility] | | | | | | MEDICAL | | | | | | CENTER - | | | | | | LABORATORY | | + + + + + + | ALT | 23 | 6 - 45 IU/L | [facility] [...] + + + + | Total | 6.7 | 6.0 - 7.8 gm/dL | [facility] | | | Protein | | | [facility] | | | | | | MEDICAL | | | | | | CENTER - | | | | | | LABORATORY | | + + + + + + | Albumin | 4.0 | 3.2 - 5.0 gm/dL | [facility] | | | | | | [facility] | | | | | | MEDICAL | | | | | | CENTER - | | | | | | LABORATORY | | + + + + + + | BUN | 11 | 7 - 18 mg/dL | [facility] | | | | | [...] + + + + | BUN/Creatin | 15.3 | 12 - 20 | [facility] | | | ine Ratio | | | [facility] | | | | | | MEDICAL | | | | | | CENTER - | | | | | | LABORATORY | | + + + + + + | Na | 134 (L) | 136 - 149 mEq/L | [facility] | | | | | [...] + | [facility] | [address] | [place], [place] | [phone] | | [facility] | | [address] | | | - LABORATORY | | | | + + + + + | [facility] | [address] | [place], [place] | | | [facility] | | [id number] [place] [address] | | | - LABORATORY | | | | + + + + + Lactate Dehydrogenase (03/19/2013 12:12 PM PST) + +-------+ + + + | Component | Value | Ref Range | Performed | Pathologist | | | | | At | Signature | + +-------+ + + + | LDH TOTAL | 152 | 91 - 180 IU/L | [facility] [...] + | [facility] | [address] | [place] | [phone] | | [facility] | | [address] | | | - LABORATORY | | | | + + + + + | [facility] | [address] | [place] | | | [facility] | | [address] [place] [address] | | | - LABORATORY | | | | + + + + + documented in this encounter Visit Diagnoses Not on filedocumented in this encounter"
--- OUTSIDE RECORDS SUMMARY | ~2019-10-19 | XMS | Encounter Summary ---
Demographics + + + | Address | [address] | | | [place] [address] | + + + | Home Phone | | + + + | Preferred Language | Unknown | + + + | Marital Status | | + + + | Adventist Affiliation | Unknown | + + + | Race | White | + + + | Ethnic Group | Not or | + + + Author + + + | Author | [facility] | | | and [place] | + + + | Organization | [facility] | | | and [place] | + + + | Address | Unknown | + + + | Phone | Unavailable | + + + Support + + + + + | Name | Relationship | Address | Phone | + + + + + | Poncho Oquendo | ECON | [address] | | | | | [place] | | | | | [address] | | + + + + + | Marta Upton | ECON | [place] | | | | | [address] | | + + + + + Care Team Providers + +------+ + | Care Brakes Inspector Name | Role | Phone | [...] W | | | | | | [place], | | | | | | [place] [address] | | | | | | [phone] | | | +--------+ + + + [...] [place] | | | | | | [place] [address] | | | | | | [phone] | | | | | | | | +--------+---------+ + + + documented as of this encounter Visit Diagnoses Not on filedocumented in this encounter"
--- OUTSIDE RECORDS SUMMARY | ~2019-10-19 | XMS | Encounter Summary ---
Demographics + + + | Address | [address] | | | [place] [address] | + + + | Home Phone | | + + + | Preferred Language | Unknown | + + + | Marital Status | | + + + | Yarsani Affiliation | Unknown | + + + | Race | White | + + + | Ethnic Group | Not or | + + + Author + + + | Author | [facility] | | | [facility] [place] | + + + | Organization | [facility] | | | [facility] [place] | + + + | Address | Unknown | + + + | Phone | Unavailable | + + + Support + + + + + | Name | Relationship | Address | Phone | + + + + + | Poncho Oquendo | ECON | [address] | | | | | [place] | | | | | [address] | | + + + + + | Marta Upton | ECON | [place] | | | | | [address] | | + + + + + Care Team Providers + +------+ + | Care Computer Tester Name | Role | Phone | + +------+ + | No, Physician | PCP | Unavailable | + +------+ + Encounter Details +--------+ + + + + | Date | Type | Department | Care Team | Description | +--------+ + + + + | 04/26/ | Anesthesia | [facility] | [facility] | | | 2019 | Event | [facility] | [facility] [address] | | | | | [facility] | [facility] | | | | | [address] | [place] [address] | | | | | [place], [place] | [phone] | | | | | [address] | | | | | | [phone] | | | +--------+ + + + + Anesthesia Record + + + + + | Procedure Name | Responsible | Anesthesia Start | Anesthesia Stop Time | | | Anesthesiologist | Time | | + + + + + | CYSTOSCOPY URETERAL | [facility] | 04/27/19 0952 | 04/27/19 1020 | | STENT | [facility] | | | | REMOVAL/REPLACEMENT | | | | | (Left Ureter) | | | | + + + + + +----+---+ + + | Da | T | Event | Comment | | te | i | | | | | m | | | | | e | | | +----+---+ + + | 03 | 0 | | | | /1 | 9 | | | | 3/ | 3 | | | | 20 | 3 | | | | 20 | | | | +----+---+ + + | | 0 | An Start | Reassessment prior to anesthesia induction/procedure. | | | 9 | | | | | 5 | | | | | 2 | | | +----+---+ + + | | 0 | Antibiotic | | | | 9 | Given | | | | 5 | | | | | 6 | | | +----+---+ + + | | 0 | An | | | | 9 | Induction | | | | 5 | | | | | 7 | | | +----+---+ + + | | 0 | An | | | | 9 | Intubation | | | | 5 | | | | | 8 | | | +----+---+ + + | | 0 | Anesthesia | | | | 9 | Ready | | | | 5 | | | | | 8 | | | +----+---+ + + | | 1 | Extubation/ | | | | 0 | Airway LDA | | | | 1 | Removal | | | | 3 | | | +----+---+ + + | | 1 | an stop | | | | 0 | data | | | | 1 | | | | | 5 | | | +----+---+ + + | | 1 | An Stop | Patient handed off to recovery nurse. | | | 2 | | | | | 0 | | | +----+---+ + + +------+ | Meds | +------+ + +--------+ | Name | Total | + +--------+ | midazolam 2 mg/mL | 2 mg | + +--------+ | lidocaine 2% | 60 mg | + +--------+ | propofol | 130 mg | + +--------+ | ondansetron | 4 mg | + +--------+ | dexamethasone | 8 mg | + +--------+ | cefTRIAXone (ROCEPHIN) 2 g in | 2 g | | sodium chloride 0.9% 50 mL IVPB | | + +--------+ | lactated ringers (LR) infusion | 300 mL | + +--------+ +---------+ | Name | +---------+ | Insp O2 | +---------+ | Exp N2O | +---------+ | Exp SEV | +---------+ + + | No blood administrations on file. | + + +--------+ + + + | Type | Details | Placement | Removal | +--------+ + + + | Implan | 07/15/14; 0800; infraclavicular | 07/15/14 0800 by | | | t | fossa, left; open-ended catheter; | Jamila Dong RN | | | Port/S | distraction, topical anesthetic | | | | gogo | spray applied; tolerated well; | | | | | Port draw | | | +--------+ + + + | Wound | 11/29/18; 1427; Incision; groin | 11/29/18 1427 by | | | | | Sugar Chase RN | | +--------+ + + + | Periph | 04/27/19; 925; Left; Lateral; | 04/27/19 09 by | 04/27/19 1053 by | | eral | Forearm; fsjb-lls-tsolee catheter | Jamila Aguila, | Cindy Casarez RN | | IV | system; 20 gauge; no longer | RN | | | | indicated; expected removal post | | | | | discharge; 04/27/19; 1053 | | | +--------+ + + + | Airway | Placement Date: 04/27/19; | 04/27/19 09 by | 04/27/19 1013 by | | | Placement Time: 957 (created via | [facility] | [facility] | | | procedure documentation); Mask | [facility] | [facility] | | | Ventilation: EZ; Attempts: 1; | | | | | Airway Type: laryngeal mask; | | | | | Size: 4; Trauma: none; Placement | | | | | Check: exhaled CO2 detection | | | | | device, bilateral chest rise; | | | | | Removal Date: 04/27/19; Removal | | | | | Time: 1013 | | | +--------+ + + + [...] + + documented as of this encounter OR Notes Anesthesia Postprocedure Evaluation - [facility] C[facility] - 04/27/2019 10:22 AM PDT ANESTHESIA POSTANESTHESIA EVALUATION Aura Upton 58 y.o. female 1960 [id number] Procedure(s) CYSTOSCOPY URETERAL STENT REMOVAL/REPLACEMENT (Left Ureter) Cooperates? Yes Mental Status Performs simple tasks. Respiratory Satisfactory - Airway patent (self maintained). Cardiovascular Satisfactory - Blood pressure and heart rate acceptable Temperature Satisfactory Pain Satisfactory N/V Control Satisfactory Hydration Satisfactory - No signs of dehydration Adverse Events ADVERSE EVENTS: No adverse events Vitals Value Taken Time Temp 36.4 C (97.5 F) 04/27/2019 10:18 AM Pulse 67 04/27/2019 10:24 AM Resp 22 04/27/2019 10:24 AM BP 100/56 04/27/2019 10:24 AM Arterial Line BP Arterial Line BP 2 SpO2 100 % 04/27/2019 10:24 AM Electronically signed by [facility] CRNA 04/27/2019 10:24 AM [facility] nesthesia Procedure Notes - [facility] CRNA - 04/27/2019 9:58 AM PDTAssociated Order(s): Anesthesia Airway NoteAnesthesia Airway Placement 04/27/2019 9:58 AM Preprocedure check: patient identified, oxygen, airway assessed, suction, airway equipment checked and patient reassessment prior to induction Mask ventilation: easy Attempts: 1 Airway type: laryngeal mask Size: 4 Tube secured with: adhesive tape Trauma: none Tube placement verification: bilateral chest rise and carbon dioxide detection Performing provider: [facility] CRNA Authorizing provider: [facility] Please see intraoperative grid for any additional medication documentation. nesthesia Pr eprocedure Evaluation - [facility] CRNA - 04/27/2019 9:19 AM PDTFormatting of t his note might be different from the original. ANESTHESIA PREANESTHESIA EVALUATION Aura Upton 58 y.o. female 1960 [id number] Procedure(s): CYSTOSCOPY URETERAL STENT REMOVAL/REPLACEMENT (Left ) Review of Systems / Med History Anesthesia History No anesthesia complications except where noted below. Cardiovascular Exercise tolerance >4 METS (+) Dysrhythmias: . Gastrointestinal/Hepatic Negative except where noted below. Renal Negative except where noted below. Endocrine (+) obesity: Hematology/Other Negative except where noted below. Obstetrics Negative except where noted below. Neuromuscular Negative except where noted below. (+) back pain. Psychology (+) psychiatric history of anxiety and depression. Physical Exam Airway MP II, Mouth opening >2 FB. Neck: full ROM, Dental grossly normal except where noted below. CV cardiovascular normal Rhythm Regular. Rate Normal. Pulm Clear to auscultation bilaterally. Neuro grossly normal. Anesthesia Plan ASA: 2 Type: General. Induction: Potential problems: None anticipated. Monitors: Standard ASA monitors. Postop Pain Management: Consent statement: Anesthetic plan, alternatives, risks and benefits discussed with patient. Consenting person understands and agrees to proceed. Electronically Signed by: [facility] C[facility] ESig date/time: 04/27/2019 9:33 AM documented in this encounter Miscellaneous Notes Anesthesia Post-op Handoff - [facility] C[facility] - 04/27/2019 10:21 AM PDTFormattin g of this note might be different from the original. ANESTHESIA HANDOFF NOTE Aura Upton 58 y.o. female 1960 [id number] CYSTOSCOPY URETERAL STENT REMOVAL/REPLACEMENT (Left ) HANDOFF NOTE Handoff Protocol Used: post-procedure handoff checklist completed The following were completed during the transfer of care: 1. Identification of patient 2. Identification of responsible practitioner (primary service) 3. Discussion of pertinent medical history 4. Discussion of the surgical/procedure course (procedure, reason for surgery, procedure pe rformed) 5. Intraoperative anesthetic management and issues/concerns 6. Expectations/plans for the early post-procedure period 7. Opportunity for questions and acknowledgement of understanding of report from receiving team Patient Location: Phase I Condition: responds to stimuli and awake Airway/O2: face mask with O2 Multimodal analgesia: multimodal analgesia used between 6 hours prior to anesthesia start t o PACU discharge The significant anesthesia concerns and VS in Epic were reviewed with the receiving team. [facility] 04/27/2019 10:21 AM [facility] d ocumented in this encounter Plan of Treatment +--------+---------+ + + + | Date | Type | Specialty | Care Team | Description | +--------+---------+ + + + | 10/29/ | Office | Urology | Pedro Green, | | 2019 | Visit | | DO [facility] | | | | | | [place] [address] | | | | | | [phone] | | | | | | | | +--------+---------+ + + + documented as of this encounter Procedures + +--------+ + + + | Procedure Name | Priori | Date/Time | Associated Diagnosis | Comments | | | ty | | | | + +--------+ + + + | ANE AIRWAY NOTE | Routin | 04/27/2019 | | Results for this | | | e | 9:58 AM | | procedure are in the | | | | PDT | | results section. | + +--------+ + + + documented in this encounter Results Anesthesia Airway Note (04/27/2019 9:58 AM PDT) + + + | Narrative | Performed At | + + + | [facility] 04/27/2019 9:58 AM Anesthesia | | | Airway Placement 04/27/2019 9:58 AM Preprocedure check: patient | | | identified, oxygen, airway assessed, suction, airway equipment | | | checked and patient reassessment prior to induction Mask ventilation: | | | easy Attempts: 1 Airway type: laryngeal mask Size: 4 Tube | | | secured with: adhesive tape Trauma: none Tube placement | | | verification: bilateral chest rise and carbon dioxide detection | | | Performing provider: [facility] Authorizing provider: | | | [facility] Please see intraoperative grid | | | for any additional medication documentation. | | + + + documented in this encounter Visit Diagnoses Not on filedocumented in this encounter Administered Medications + +---------+ +------+------+------+ | Medication Order | MAR | Action | Dose | Rate | Site | | | Action | Date | | | | + +---------+ +------+------+------+ | cefTRIAXone (ROCEPHIN) 2 g in | New Bag | 04/27/19 | 2 g | | | | sodium chloride 0.9% 50 mL IVPB | | 20 9:54 | | | | | 2 g, Intravenous, Administer over | | AM PDT | | | | | 30 Minutes, Prior to Incision, | | | | | | | Starting Tue04/27/19 at 0916, For | | | | | | | 1 dose, Keep in refrigerator., | | | | | | | Pre-op, Indications: Surgical | | | | | | | Prophylaxis | | | | | | + +---------+ +------+------+------+ +---+---+ | | | +---+---+ + +-------+ +------+---+---+ | dexamethasone (DECADRON) 4 | Given | 04/27/19 | 8 mg | | | | mg/mL injection Intravenous, | | 20 10:03 | | | | | PRN, Starting Tue04/27/19 at | | AM PDT | | | | | 1003, Anesthesia Intra-op | | | | | | + +-------+ +------+---+---+ +---+---+ | | | +---+---+ + + + +---+---+---+ | lactated ringers (LR) infusion | Continue | 04/27/19 | | | | | at 10-100 mL/hr, Intravenous, | d by | 20 9:52 | | | | | CONTINUOUS, Starting Tue04/27/19 | Anesthes | AM PDT | | | | | at 0945, TKO., Pre-op | ia | | | | | + + + +---+---+---+ +---------+ +---+ +---+ | New Bag | 04/27/19 | | 30 mL/hr | | | | 20 9:28 | | | | | | AM PDT | | | | +---------+ +---+ +---+ +---+---+ | | | +---+---+ + +-------+ +-------+---+---+ | lidocaine 2% injection PRN, | Given | 04/27/19 | 60 mg | | | | Starting Tue04/27/19 at 0957, | | 20 9:57 | | | | | Anesthesia Intra-op | | AM PDT | | | | + +-------+ +-------+---+---+ +---+---+ | | | +---+---+ + +-------+ +------+---+---+ | midazolam (VERSED) 1 mg/mL | Given | 04/27/19 | 2 mg | | | | injection Intravenous, PRN, | | 20 9:45 | | | | | Starting 04/27/19 at 0945, | | AM PDT | | | | | Anesthesia Intra-op | | | | | | + +-------+ +------+---+---+ +---+---+ | | | +---+---+ + +-------+ +------+---+---+ | ondansetron (ZOFRAN) injection | Given | 04/27/19 | 4 mg | | | | Intravenous, PRN, Starting Fri | | 20 10:03 | | | | | 04/27/19 at 1003, Anesthesia | | AM PDT | | | | | Intra-op | | | | | | + +-------+ +------+---+---+ +---+---+ | | | +---+---+ + +-------+ +--------+---+---+ | propofol (DIPRIVAN) injection | Given | 04/27/19 | 130 mg | | | | Intravenous, PRN, Starting Fri | | 20 9:57 | | | | | 04/27/19 at 0957, Anesthesia | | AM PDT | | | | | Intra-op | | | | | | + +-------+ +--------+---+---+ +---+---+ | | | +---+---+ documented in this encounter"
--- OUTSIDE RECORDS SUMMARY | ~2019-10-19 | XMS | Encounter Summary ---
Demographics + + + | Address | [address] | | | [place] [address] | + + + | Home Phone | | + + + | Preferred Language | Unknown | + + + | Marital Status | | + + + | Mormon Affiliation | Unknown | + + + | Race | White | + + + | Ethnic Group | Not or | + + + Author + + + | Author | [facility] | | | [facility] [place] | + + + | Organization | [facility] | | | [facility] [place] | + + + | Address | Unknown | + + + | Phone | Unavailable | + + + Support + + + + + | Name | Relationship | Address | Phone | + + + + + | Poncho Oquendo | ECON | [address] | | | | | [place] | | | | | [address] | | + + + + + | Marta Upton | ECON | [place] | | | | | [address] | | + + + + + Care Team Providers + +------+ + | Care Media Reconciliation Specialist Name | Role | Phone | + +------+ + | Valeriy Carmona DO | PCP | | + +------+ + Reason for Visit +--------+--------+ + | Reason | Onset | Comments | | | Date | | +--------+--------+ + | Other | 11/07/ | | | | 2017 | | +--------+--------+ + Encounter Details +--------+ + + + + | Date | Type | Department | Care Team | Description | +--------+ + + + + | 11/07/ | Telephone | [facility] | [facility], | Other | | 2018 | | [facility] | Epifanio Soler MD [address] | | | | | [facility] | [facility] | | | | | [address] | [address], [place] | | | | | [place] [address] | [address] | | | | | [phone] | | | +--------+ + + + [...] Telephone Encounter - Epifanio Najera MD - 11/07/2017 12:39 PM PDTNoted. Electronica lly signed by: Epifanio Najera MD 11/07/2017 12:39 elephone Encfernando chaves - Sonia Renae RN - 11/07/2017 10:52 AM PDTCall returned to [place]: patient fe ll when tried to get up, ambulance is on the way to take her to [facility]. Electron ically signed by Sonia Renae RN at 11/07/2017 10:53 AM PDTTelephone Encounter - Noble Gibson - 11/07/2017 9:43 AM PDTVictor called off / on since Tuesday, fever, pain naus ea hot with sweating and cold. Most recent temp is 102* Would like advisement on what to do. Please [phone] signed by Noble Kent at 11/07/2017 9:45 AM PDTdocum ented in this encounter Plan of Treatment +--------+---------+ + + + | Date | Type | Specialty | Care Team | Description | +--------+---------+ + + + | 10/29/ | Office | Urology | Pedro Green, | | | 2019 | Visit | | DO [facility] | | | | | | [place] [address] | | | | | | [phone] | | | | | | | | +--------+---------+ + + + documented as of this encounter Visit Diagnoses Not on filedocumented in this encounter"
--- OUTSIDE RECORDS SUMMARY | ~2019-10-19 | XMS | Encounter Summary ---
Demographics + + + | Address | [address] | | | [place] [address] | + + + | Home Phone | | + + + | Preferred Language | Unknown | + + + | Marital Status | Single | + + + | Shinto Affiliation | NON | + + + [...] Team Providers + +------+ + | Care Installation Helper Name | Role | Phone | + +------+ + | Prudencio Isaac MD | PCP | Unavailable | + +------+ + Reason for Visit + + + | Reason | Comments | + + + | Pre-op evaluation | | + + + Encounter Details +--------+---------+ + + + | Date | Type | Department | Care Team | Description | +--------+---------+ + + + | 07/03/ | Office | Preoperative | Salima Yan | Preop Examination | | 2008 | Visit | [facility] at | A, 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 [address] | (Primary Dx) | | | | [facility] [address] | | | | | [address] | [place], [place] | | | | | Mailcode: CH4S | [address] | | | | | [facility] | | | | | | and Healing, | | | | | | Building [address] Floor | | | | | | [place], [place] | | | | | | [address] | | | | | | [phone] | | | +--------+---------+ + + + [...] + + + | Blood Pressure | 104/67 | 07/03/2008 4:29 PM | | | | | PDT | | + + + + + | Pulse | 75 | 07/03/2008 4:29 PM | | | | | PDT | | + + + + + | Temperature | 36.8 C (98.3 F) | 07/03/2008 4:29 PM | | | | | PDT | | + + + + + | Respiratory Rate | 14 | 07/03/2008 4:29 PM | | | | | PDT | | + + + + + | Oxygen Saturation | 98% | 07/03/2008 4:29 PM | | | | | PDT | | + + + + + | Inhaled Oxygen | - | - | | | Concentration | | | | + + + + + | Weight | 76.2 kg (168 lb) | 07/03/2008 4:29 PM | | | | | PDT | | + + + + + | Height | 162.6 cm (5' 4") | 07/03/2008 4:29 PM | | | | | PDT | | + + + + + | Body Mass Index | 28.84 | 07/03/2008 4:29 PM | | | | | PDT | | + + + + + documented in this encounter Progress Salima Bermudez - 07/03/2008 4:57 PM PDTSee Scanned H&P. documented in this e ncounter Plan of Treatment Not on filedocumented as of this encounter Visit Diagnoses + + | Diagnosis | + + | Preop examination - Primary Preoperative examination, unspecified | + + documented in this encounter
--- OUTSIDE RECORDS SUMMARY | ~2019-10-19 | XMS | Encounter Summary ---
Demographics + + + | Address | [address] | | | [place] [address] | + + + | Home Phone | | + + + | Preferred Language | Unknown | + + + | Marital Status | Single | + + + | Judaism Affiliation | NON | + + + [...] | + + +---------+ + | Poncho Abarca | ECON | Unknown | | + + +---------+ + | Elsy Upton | ECON | Unknown | | + + +---------+ + Care Team Providers + +------+ + | Care Sharples Machine Operator Name | Role | Phone [...] 2014 | | HIEN Carreon | [address] [facility] | LAPAROTOMY; TOTAL | | | | [address] [facility] | [facility] [address] | ABDOMINAL | | | | Hospital Admitting | [place], [place] | HYSTERECTOMY; | | | | Desk Located on the | [phone] | BILATERAL | | | | 9th floor | [phone] | SALPINGO-OOPHORECTOM | | | | [place], [place] | | Y; OMENTECTOMY; LEFT | | | | [phone] | | PELVIC AND | | | [...] DISCHARGE SUMMARY Author: Roger Guadalupe MD PGY1 WASTE COLLECTION DRIVER Attending Physician: Dr. Henderson Admission Date: 06/06/2014 [...] to Get Your Medications You need to strip picker these prescriptions. We sent some of them to a specific pharmacy. Go t o these places to get your medications. [facility] - enoxaparin 40 mg/0.4 mL Syrg [address] [facility] [place] [facility] [place] [address] Hours: 8AM-9PM Mon-Fri; 9-5:30PM Sat-Sun You may [...] To contact your provider, please call the [facility] clinic at [phone] during daytime hours. During evening or weekend hours, please call the [facility] paging boil off machine operator cloth at [phone] and ask for the [facility] Oncology staff on-call. Reasons to call the [...] stable Discharging Physician: Roger Guadalupe MD PGY1 WASTE COLLECTION DRIVER Service Pager: [phone] Attending Physician: Dr. Henderson I saw and evaluated the patient. I agree with the findings and the plan of care as shruthi ramirez in the resident s note. Patt Henderson M.D. Division of Gynecologic Oncology Department of Obstetrics and Gynecology documented in this encounter Discharge Instructions Instructions Michelle Dow RN - 06/09/2014Patient Education Materials: Home care [...] documented as of this encounter Progress Notes Miguel Seymour MD - 06/09/2014 8:22 AM PDTFormatting of [...] assessment and plan. Roger Guadalupe MD PGY1 WASTE COLLECTION DRIVER Service Pager: [phone] I saw and evaluated the patient. I agree with the findings and the plan of care as shruthi ramirez in the resident s note. Patt Henderson M.D. Division of Gynecologic Oncology Department of Obstetrics and Gynecology Sasha Antony MD - 06/08/2014 1:09 PM PDTEpidural removed. Tip intact. Coagulation parameters appropria te for pulling. APS will sign off. Please call us back if we can be of further assistance. Primary service notified. SASHA DALY MD [facility] [address] [facility], 4th Floor Mail Code: [place] [address] Sasha Antony MD - 06/08/2014 8:52 AM PDT INPATIENT ADULT PAIN SERVICE NEURAXIAL BLOCK PROGRESS NOTE 06/08/2014 Author: SASHA DALY MD Pain Service Attending Physician: Sasha Daly MD POD# 2 Status post: Ex-lap, [...] location: midline incisional pain.. Typical i ntensity 4-5/10 Prior to hospitalization: Opioids: Hydrocodone as hydrocodone/acetaminophen 5/325: pt not s ure how many tabs [...] mass 4. Hx of cholangiocarcinoma 5. Ex-lap, JAKE, BSO, omentectomy, left para-aortic lymph node dissection, [...] and recommendations with primary care team provider aviation warfare systems operator/oncology. SASHA DALY MD BILLING INFORMATION [facility] DEPARTMENT: [id number] Place of Service:- Inpatient Date of Service: 06/08/2014 CSN: [id number] Suggested Modifier: None Suggested CPT: 59881 - Daily mgmt epidural/subarachnoid drug administration Prolonged service: n/a Counseling and Coordination: n/a eMiguel gandhi MD - 06/08/2014 8:00 AM PDT GYNECOLOGY ONCOLOGY [...] assessment and plan. Roger Guadalupe MD PGY1 WASTE COLLECTION DRIVER Service Pager: [phone] I saw and evaluated the patient. I agree with the findings and the plan of care as shruthi ramirez in the resident s note. Patt Henderson M.D. Division of Gynecologic Oncology Department of Obstetrics and Gynecology Sasha Antony MD - 06/07/2014 9:26 AM PDTThis [...] doing well (see separate note in EPIC). SASHA DALY MD [facility] [address] [facility], 4th Floor Mail Code: [address] [id number] Sasha Antony MD - 06/07/2014 7:39 AM PDT INPATIENT ADULT PAIN SERVICE NEURAXIAL BLOCK PROGRESS NOTE 06/07/2014 Author: KATHERINE LION MD Pain Service Attending Physician: Sasha Daly MD POD# 1. Status post: ex-lap, [...] 125 mL/hr intravenous CONTINUOUS 125 mL/hr (06/07/14 9438) Type: Epidural Rate: 4 mL/hour Anticoagulants: enoxaparin [...] recommendations with primary care team provider . SASHA DALY MD [facility] [address] [facility], 4th Floor Mail Code: CH4P [place], [place] [address] BILLING INFORMATION [facility] DEPARTMENT: [id number] Place of Service:- Inpatient Date of Service: 06/07/2014 CSN: [id number] Suggested Modifier: GC - Resident Involved Suggested CPT: 55244 - Daily mgmt epidural/subarachnoid drug administration Prolonged [...] PGY 4 Department of Obstetrics & Gynecology Jeff Gomez MD - 06/06/2014 5:29 PM PDTFormatting of this note might be different from the [facility] GYNECOLOGY ONCOLOGY INPATIENT PROGRESS NOTE Hospital Day: [...] Millard MD documented i n this encounter H&P Notes Other, Faculty - 06/11/2014 12:15 AM PDTElectronically signed by Faculty Other at 5 12:15 AM PDTdocumented in this encounter Procedure Notes Other, Faculty - 06/12/2014 2:48 PM PDTAssociated Order(s): CARDIOLOGYElectronically karley d by Faculty Other at 06/12/2014 2:48 PM Miguel Alejandro MD - 06/06/2014 12:48 PM PDT Associated Order(s): OPERATION RECORDDate of Service: 06/06/2014 Attending Surgeon: Miguel Seymour MD Logistics Account Manager(s): Poncho Arriola MD. Anesthesia: General endotracheal anesthesia and epidural anesthesia. Complications: None. Procedures Performed: Exploratory laparotomy, total abdominal hysterectomy, bilateral salp ingo-oophorectomy, pelvic and periaortic lymphadenectomy, omentectomy, surgical staging. Description Of Findings: There are dense adhesions between the omentum, the anterior abdom inal wall, the liver and the diaphragm. There are similar dense adhesions between the recto sigmoid and the left flank. Both ovaries are encased in adhesions, most of which are filmy and thin in nature. The left ovary is replaced by 10 cm partially cystic mass. There is a 4-5 cm cystic mass of the right ovary with 5-7 mm sized nodular excrescences on the surface. The uterus is grossly normal. The entire small and large bowel are normal, as well as the appendix. There is a small 3 mm nodule on the rectosigmoid mesentery. The intestinal mese ntery is otherwise normal over its entire course. There are no suspicious peritoneal tumor implants in the pelvis or the abdomen. There are no enlarged pelvic or periaortic lymph nod es. Frozen section of the left ovarian mass shows a poorly differentiated epithelial tumor. No further characterization is possible. There was no gross evidence of disease palpable or visible at the completion of the procedure. Description Of Procedure: After general and epidural anesthesia were obtained, the patient was placed in a modified dorsal lithotomy position. Proper padding was applied to prevent pressure injuries. The patient was prepped and draped in the usual sterile fashion. A team pause was held with confirmation of the patient's identity and the procedure to be performe d. Blood was available and antibiotics had been administered. All team members were in agr eement. A Chery catheter was placed with the usual sterile technique and the patient was pr epped and draped for the procedure. A midline incision was made and extended above the umbi licus towards the xiphoid. The abdomen was entered without difficulty. The omentum was the n taken down from the anterior abdominal wall with the cautery and LigaSure. A small amount of peritoneal fluid was removed together with washings for cytology. A self-retaining Book jesi retractor was then positioned in the wound. The abdomen was carefully examined with findings as described. The dense adhesions between the rectosigmoid and the pelvic sidewall were taken down by sha rp dissection and with electrocautery. The retroperitoneal spaces were entered. The uterus was then elevated. The round ligament on the left side was identified and divided. The le ft ureter was properly identified, and the left ovarian vessels were subsequently clamped, d ivided, and doubly ligated. The left ovarian mass was now dissected off the pelvic sidewall and the broad ligaments without rupture. The fallopian tube, mesosalpinx and ovarian ligam ent were then clamped and divided and the specimen was sent for frozen section. On the righ t side, the peritoneum of the sidewall was divided and the right ureter was identified. The right ovarian vessels were then clamped, divided, and doubly ligated. The round ligament w as divided. The ovary was dissected of adhesions to the broad ligament, mobilized medially. The fallopian tube on that side with the mesosalpinx and the ovarian ligament were then al so clamped and divided. The ovary was sent for pathology. With the uterus under traction, the peritoneum of the anterior cul-de-sac was now divided. The patient had several sections in the past, and the bladder was adherent high up on the uterus. It was carefully taken down by sharp dissection without any injury to bladder or ureters. The uterine vesse ls were skeletonized. They were subsequently clamped, divided, and ligated. The cardinal l igaments and uterosacral ligaments were clamped in successive steps, divided and ligated. C lamps were placed on the vagina with the bladder and ureters reflected out of the way and th e specimen was resected. The vagina was closed with 0 Vicryl sutures, which resulted in exc ellent hemostasis. A small nodule identified on the mesentery of the rectosigmoid was remov ed. Peritoneal biopsies were obtained from the cul-de-sac and the pelvic sidewalls. Attention was directed to her upper abdomen. The incision was extended to gain proper expo sure. The omentum was entirely taken down from the anterior abdominal wall and from the edg e of the liver towards the previous surgery site for the patient's gallbladder cancer. The diaphragm on the left side was entirely normal. The portion of the diaphragm on the right s karlo that could be evaluated was normal as well. There was no evidence of tumor in this area . The omentum was removed from the transverse colon, the mesentery of the transverse colon, and from the greater curvature of the stomach. The LigaSure device was used without any in jury to surrounding organs, and without bleeding. The left periaortic lymph nodes were zeke hubert next. The ureter was reflected over the aorta and the scant lymphatic material to the l eft side of the aorta was removed. Electrocautery was used. On the left side, a complete p elvic lymphadenectomy was performed. The genitofemoral nerve was left intact as well as the obturator nerve, which was well visualized. The lymph nodes from the external and internal iliac lymph nodes chain, from the obturator fossa, and from the common iliac vessels were r emoved. There were no bleeding problems and there were no neural injuries. The ureter was properly reflected out of the way at all times. Copious irrigation was performed. There wa s no evidence of bleeding and there was no visible tumor anywhere. The bowel was examined o senait its entire length. All sponges and the self-retaining retractor, as well as all instrum ents, were then removed. The abdominal incision was closed with #1 looped Maxon in a mass t ype of closure. The subcutaneous tissues were irrigated and the skin was closed with staple s. Sponge, instrument, and needle counts were correct x2. I was present for the entire procedure as described in the note for this encounter. MD DAPHNEY Tenorio/JE /[id number] [facility] DEPARTMENT: [id number] ATMOSPHERIC TECHNICIAN ONC [facility] Place of Service:[id number] - Date of Service: 06/07/2014 CSN: [id number] Suggested Modifier: None Suggested CPT: None Suggested Procedure CPT: To Artist Manager Suggested Diagnosis: Ovarian ca egeestMiguel MD - 06/06/2014 11:32 AM PDTAssociated Order(s): PROCEDURE NOTEBRIEF OPERATIVE NOTE Procedure Date: 06/06/2014 Author: PONCHO ARRIOLA MD Attending Physician: Dr. Miguel Henderson Assistants: Dr. Poncho Arriola R4 Prior to the beginning of the procedure the team paused to verify the patient's identity, a s well as the procedure to be performed and the correct side/site. All equipment required w as ready and available. The patient was positioned appropriately. The following steamboat pilot s were present during the team pause: Surgical team, anesthesia team, oil bay technician, circulati ng nurse. 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 Anesthesia: GETA, epidural Estimated Blood Loss: 100 mL Urine Output: 115 mL Fluids: 3000 mL crystalloid Drains: chery Findings: 1) EUA: small, anteverted uterus. Adnexal fullness appreciated bilaterally, left>right. No parametrial or rectal involvement appreciated. 2) Intraoperative: moderate adhesions between omentum and fascia along midline but no oment al implants appreciated. Smooth appearing liver edge and diaphragmatic edges. No enlarged pa raaortic nodes appreciated. Uterus small and smooth in appearance. Bladder adherent to lower uterine segment. Bilateral fallopian tubes normal in appearance. Left ovary enlarged with c ystic mass, approximately 5 cm in size, right ovary enlarged as well, approximately 4 cm in size. Normal appearing appendix, normal appearing bowel without implants. Specimens: 1) Pelvic washings 2) Left ovary and tube 3) Implant on mesentery of sigmoid colon 4) Right ovary and tube 5) Uterus and cervix 6) Omentum 7) Left para-aortic lymph nodes 8) Left pelvic lymph nodes 9) Peritoneal biopsy of left pelvic side wall 10) Peritoneal biopsy of right pelvic side wall 11) Peritoneal biopsy of cul-de-sac Antibiotic Prophylaxis: 2g cefoxitin DVT Prophylaxis: SCDs Complications: none Disposition: stable to PACU Indications: Aura Upton is a 53 y.o. with [...] with Aura, and a full PARQ held an exploratory laparotom y, total abdominal hysterectomy, bilateral salpingoopherectomy, and staging. Surgical consen ts were signed prior to the procedure. PONCHO ARRIOLA MD I was present for the entire procedure as described in the note for this encounter. MIGUEL SEYMOUR MD [facility] [address] [facility] [place] [address] documented in this encounter Consult Notes Laura Vazquez, Nataly - 06/07/2014 11:34 AM PDT Pharmacy Services: Admission Medication Reconciliation Prior to Admission Medications: Medication Sig DOCUSATE CALCIUM (STOOL SOFTENER ORAL) Take 100 mg by mouth once daily as needed (const ipation). HYDROcodone-acetaminophen (NORCO) 5-325 mg Oral tablet Take 1 tablet by mouth every fou r hours as needed. Not to exceed 10 tablets per any 24 hour period. (Not to exceed 3250 mg o f acetaminophen from all products per 24 hour period.) LACTOBACILLUS ACIDOPHILUS (PROBIOTIC ORAL) Take 1 capsule by mouth once daily. MULTIVIT &MINERALS/FERROUS FUM (MULTI VITAMIN ORAL) Take 1 tablet by mouth once daily. The above list reflects the patient's prior to admission medication use and is complete and accurate to the best of my knowledge. Thank you for the consult, Joaquin Booth, Pharm.D. Home medication assessment: Significant medications resumed. Insurance Status: [employer] w/[employer] as secondary. Fills at [facility] in [place], [place]. Source of Medication Information: Patient and Pharmacy Reliability: Reliable All questions concerning medications, including OTC and herbal products, were addressed. For questions regarding this information please contact pharmacy, pager [phone] signed by Laura Vazquez PharmD at 06/07/2014 11:42 AM PDTdocumented in this encounter Miscellaneous Notes Scan - Other, Faculty - 06/11/2014 10:06 AM PDTElectronically signed by Faculty Other at 10:06 AM PDTScan - Other, Faculty - 06/11/2014 12:15 AM PDT can - Other, Faculty - 06/10/2014 11:03 PM PDTElec tronically signed by Faculty Other at 06/10/2014 11:03 PM PDTEvaluation - Michelle Dow RN - 06/09/2014 3:50 PM PDTPatient Education Materials: Pt discharging today. AFVSS. Tole rating PO. Voiding. +Flatus. Ambulating. Educated in all discharge instructions and prov ided written handouts to support all education. Also educated pt in signs/symptoms to watch for and when to call MD. Educated pt in how to administer lovenox injections and had pt de monstrate understanding which she did with minimal cueing, witnessing as well. Educ ated in signs/symptoms to watch for regarding potential side effects of lovenox. Pt verbali zed understanding of all education, no further questions upon dc. MD aware of pt having jake sis this am as well, dc'd with script for zofran ODT as pt still wanted to dc today. Additional Instructions: Discharge Nurse: Michelle Dow Date: 06/09/2014 Discharge Time: 3:50 PM andoff - Amy Rebolledo RN - 06/09/2014 6:36 AM PDTNursing Handoff Report Primary focus of stay: 06/06 ex-lap, JAKE, Boby Salpingoophorectomy, L pelvic & paraortic lym phadenectomy Pertinent physical findings: mepilex primary drsg to abdomen with shadowing reg diet- tolerating well but no flatus yet. Hypoactive bowel tones BP slightly hypotensive Having some spotting, mathieu pad in place Mild edema in BLE Orders to follow up on: Last pain assessment/reassessment: LLQ, incisional and possibly gas pains. Oxy 20mg Q3hrs a nd alternating ibuprofen and acetaminophen. Also has lido patches and Kpad. Psych/social issues: pleasant, at bedside. From [place]. Last patient visit (i.e. Falls/Activity/Comfort/Environment/Toileting/Skin): ambulates with 1p SBA in halls x3-4 today, resting in bed, call light within reach, voiding in hat in BR, no skin issues, showered 06/08 Anticipated or pending procedures: DC home when bowel function returns Alexa Shelton RN - 06/08/2014 6 :08 PM PDTNursing Handoff Report Primary focus of stay: 06/06 ex-lap, JAKE, Boby Salpingoophorectomy, L pelvic & paraortic lym phadenectomy Pertinent physical findings: mepilex primary drsg to abdomen with shadowing reg diet- tolerating well but no flatus yet. Hypoactive bowel tones BP slightly hypotensive Temp elevated overnight, continue to monitor Having some spotting, mathieu pad in place Mild edema in BLE Orders to follow up on: increase to 20mg oxycodone when next available Last pain assessment/reassessment: LLQ, incisional and possibly gas pains. Oxy 15-20mg with scheduled ibuprofen and acetaminophen. Also has lido patches and Kpad. Psych/social issues: pleasant, at bedside. From [place]. Last patient visit (i.e. Falls/Activity/Comfort/Environment/Toileting/Skin): ambulates with 1p SBA in halls x3-4 today, resting in bed, call light within reach, voiding in hat in BR, no skin issues, showered 06/08 Anticipated or pending procedures: Amy Marcial RN - 06/08/2014 5:49 AM PDTNursing Handoff Report Primary focus of stay: 06/06 ex-lap, JAKE, Boby Salpingoophorectomy, L pelvic & paraortic lym phadenectomy Pertinent physical findings: mepilex primary drsg to abdomen with shadowing reg diet- tolerating well but no flatus yet. Hypoactive bowel tones BP slightly hypotensive throughout day but better now Temp 99.5, continue to monitor, febrile 06/07, MD aware and gave tylenol, afebrile this shif t. Pain: LLQ, incisional and gas? Applied KPAD and acetaminophen. Orders to follow up on: Last pain assessment/reassessment: epidural running, 6ml/hr with 3ml q15min- epidural can b e increased if BP continues to increase upwards. Psych/social issues: pleasant, at bedside Last patient visit (i.e. Falls/Activity/Comfort/Environment/Toileting/Skin): ambulates with 1p SBA in halls, resting in bed with epidural PCEA and call light within reach, voiding in hat in BR, no skin issues Anticipated or pending procedures: monitor BP and adjust Epi rate accordingly. Triny Ramirez RN - 06/07/2014 10:25 PM PDTNursing Handoff Report Primary focus of stay: 06/06 ex-lap, JAKE, Boby Salpingoophorectomy, L pelvic & paraortic lym phadenectomy Pertinent physical findings: mepilex primary drsg to abdomen with shadowing reg diet- tolerating well but no flatus yet. Hypoactive bowel tones voiding in hat; had low urine output overnight but no issues today BP slightly hypotensive throughout day but improving Temp 99.5, continue to monitor, febrile last night. MD aware and gave tylenol Afebrile this shift. Pain: LLQ, incisional and gas? Applied KPAD and acetaminophen. Orders to follow up on: Advanced Diet Last pain assessment/reassessment: epidural running, 6ml/hr with 3ml q15min- epidural can b e increased in BP continues to increase upwards. Psych/social issues: pleasant, at bedside Last patient visit (i.e. Falls/Activity/Comfort/Environment/Toileting/Skin): ambulates with 1p SBA, ambulated x3 today, resting in bed with epidural PCEA and call light within reach, using hat in BR, no skin issues Anticipated or pending procedures: monitor BP and adjust Epi rate accordingly. andoff - Avtar Carbone, RN - 06/07/2014 6:11 PM PDTNursing Handoff Report Primary focus of stay: 06/06 ex-lap, JAKE, Boby Salpingoophorectomy, L pelvic & paraortic lym phadenectomy Pertinent physical findings: mepilex primary drsg to abdomen with shadowing reg diet- tolerating well but no flatus yet. Hypoactive bowel tones voiding in hat; had low urine output overnight but no issues today BP slightly hypotensive throughout day but improving Fever of 102.6F 06/06 overnight; MD aware and gave tylenol Afebrile this shift. Orders to follow up on: SL? Last pain assessment/reassessment: epidural running, 5ml/hr with 3ml q15min- epidural can b e increased in BP continues to increase upwards. Psych/social issues: pleasant, at bedside Last patient visit (i.e. Falls/Activity/Comfort/Environment/Toileting/Skin): ambulates with 1p SBA, ambulated x3 today, resting in bed with epidural PCEA and call light within reach, using hat in BR, no skin issues Anticipated or pending procedures: lan of Care - Faiza Mayo, PT - 06/07/2014 2:33 PM PDT Physical Therapy Evaluation Patient admitted on: 06/06/2014 5:20 AM, hospital day number 1 Patient seen on: 14a 06/07/2014 2:34 PM Brief Hospital Course: Aura Upton is a 53 y.o. female s/p diagnostic laparoscopy, po ssible biopsies, possible exploratory laparotomy, JAKE, BSO, staging. 06/06 (per report). (adapted from Aneesh Hicks OT) Relevant Precautions: abdominal Indication for Physical Therapy Evaluation: functional mobility training, gait training, ed ucation on precautions, strength training, home exercise program instruction following above surgery. Past Medical History Diagnosis Date Chronic back pain greater than 3 months duration Gallbladder carcinoma Cholangiocarcinoma Maintenance chemotherapy Diverticulosis of colon Hemorrhoids Depressive disorder Arthritis Adnexal mass Past Surgical History Procedure Laterality Date Tubal ligation 2002 section 1998 Endoscopic sinus surgery 2009 deviated septum Laparoscopic cholecystectomy 2012 Dilation and curettage 2000 miscarriage Dilation and curettage 2002 miscarriage Laparoscopic knee surgery 09/06/13 Laparoscopic knee surgery 03/21/14 Liver resection 04/2012 Per OT/PT interview: Living Environment: Pt lives with in a single level home no stairs to get in, step in shower, no adaptive environmental equipment in place. Prior Level of Function: Independent with ADLs and IADLs, active. Patient / Family Goal: Get home. Barriers: None Pain: No report of pain during session. Vital signs: Oxygen stable on room air, blood pressure low (see doc flow) but no signs of d izziness during session. Subjective statement: willing to work with therapy Cognitive Screen See OT eval for details Physical Assessment Lower Extremity range of motion: WFL Lower Extremity Strength: within functional limits however at risk for deconditioning due to hospitalization and surgical intervention Edema: na / Location: na Skin Integrity: nothing significant noted Neurological Function Sensation: na Muscle Tone: intact Proprioception: intact Gross Motor: intact Fine Motor: na Sitting Balance: sits edge of bed with stand by assist. No loss of balance. Standing Balance: stands with hand hold assist / contact guard assist. No overt loss of bal ance. Mobility & Transfers: supine to sit via logroll with min assist (after extensive instruct) with no rail, HOB flat (practiced 2x). Cues for no valsalva as well. Sit to /from stand with hand hold assist/CGA. No walker or cane used. No loss of balance or lower extremity buckli ng upon standing or during standing. Gait: ambulated ~150 feet with hand hold assist/CGA and then ambulated ~50 feet while pushi ng IV pole/ stand by assist. Cues for upright stance and full step length. Treatment provided this date: gait. Verbally instructed (extensively) in abdominal precauti ons and rationale behind them. Handout provided. Instructed in logroll both in and out of be d for patient demonstration after verbal instruct / teaching. Patient able to demonstrate th e logroll after instruct (with assist). Instructed in home exercise program for upper extrem ities and lower extremities - handout provided. Patient able to perform all exercises indepe ndently and agreeable to perform 2x each day. [facility] BASIC MOBILITY How much difficulty does the patient currently have: 1. Turning over in bed (including adjusting bedclothes, sheets, blankets) 4 2. Sitting down/standing up from chair with arms (bedside commode, wheelchair, etc) 3 3. Moving from supine to sitting edge of bed 3 How much help from another person does the patient currently need for: 4. Moving to and from a bed to a chair/wheelchair 3 5. Walking in hospital room 3 6. Climbing 3-5 steps with a railing 3* TOTAL 19 *Note: activity was not directly observed and scoring is based on skills and deficits demon strated today 1 - Unable to do/total assistance = Total/Dependent Assist 2 - A lot = Maximum/Moderate Assistance 3 - A little = Minimal/Contact Guard Assist/Supervision 4 None = Modified independent/Independent Ended session: in chair, call light in reach. Needs met. Questions answered. Nurse aware. ASSESSMENT: Aura Upton is a 53 y.o. female s/p diagnostic laparoscopy, possible biopsies, possib le exploratory laparotomy, JAKE, BSO who presents today with decreased knowledge of abdominal precautions, decreased overall strength and at risk for further deconditioning, decreased a ctivity tolerance, decreased functional mobility, decreased gait and possible DME needs. Pat ient is not at her baseline. Patient will benefit from continued acute skilled PT to address these deficits and facilitate return to baseline function. This patient has good rehabilitation potential to achieve stated goals (see Care Plan for g oals) and requires continued rehabilitation services, given the patient's treatment is at a level of complexity or sophistication requiring the skills of a therapist. Interpretation of [facility] Short Form - Basic Mobility: CMS Modifier (G-Code) Score (in points) % of Functional Impairment, Limitation, or Restriction CN 6 100% impaired, limited, restricted CM 7-9 At least 80%, but less than 100% impaired, limited, or restricted CL 10-14 At least 60%, but less than 80% impaired, limited, or restricted CK 15-19 At least 40%, but less than 60% impaired, limited, or restricted CJ 20-22 At least 20%, but less than 40% impaired, limited, or restricted CI 23 At least 1%, but less than 20% impaired, limited, or restricted CH 24 0% impaired, limited, or restricted See Care Plan for goals. Recommendations: Activity Plan: Routine ambulation with nursing staff. Ie: ambulate 3x each day with or with out walker and staff assist. Up in chair following each walk for one hour. DC recs: anticipate home with prn assist and no durable medical equipment anticipated. Next visit: gait, therapeutic exercise, bed mobility PLAN: Physical Therapy will provide: strength training, transfer training, balance traini ng, gait training, patient / caregiver education, and ongoing discharge planning. Frequency: 4x/week Duration: 2 weeks The above plan of care and goals were developed and reviewed with the patient. Should this patient discharge from the hospital prior to the next physical therapy treatmen t, this note shall serve as the discharge summary. FAIZA MAYO PT lan of Care - O Latoya Lodr RN - 06/07/2014 2:26 PM PDTProblem: Case Management Goals Goal: Discharge Needs Met Outcome: Goal partially met Case Management Initial Assessment Reason for Admission: Exploratory laparotomy, total abdominal hysterectomy, bilateral salpi ngoopherectomy with resection of bilateral adnexal mass, omentectomy, left para-aortic lymph node dissection, left pelvic lymph node dissection. 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 [facility] pt is medically ready for discharge, he will assist patient with ADLs until she retur ns to baseline. Will continue to follow through discharge. Please see other disciplines' progress notes for their discharge recommendations. Please page case management manager if any CM arranged service needs arise. Anticipated Discharge Needs: Anticipated Discharge Disposition: home Assessment done by: Latoya TAPIA, RN 14A Injection Molder Pager: [phone] lan of Care - Jordan Aneesh leon, OT - 06/07/2014 10:30 AM PDT Occupational Therapy Evaluation 06/07/2014 Pt admitted on 06/06/2014, hospital day # 1. Seen on 14A Brief Hospital Course: Aura Upton is a 53 y.o. female s/p diagnostic laparoscopy, po ssible biopsies, possible exploratory laparotomy, JAKE, BSO, staging. 06/06 (per report). Relevant Precautions: Abdominal Indication for Occupational Therapy Consult: Assess and maximize independence with activiti es of daily living while adhering to precautions, educate pt/caregivers on adaptive equipmen t, strategies, and environmental modifications to improve safety and independence at home wh ile reducing risk of hospital readmittance Past Medical History Diagnosis Date Chronic back pain greater than 3 months duration Gallbladder carcinoma Cholangiocarcinoma Maintenance chemotherapy Diverticulosis of colon Hemorrhoids Depressive disorder Arthritis Adnexal mass Past Surgical History Procedure Laterality Date Tubal ligation 2002 section 1998 Endoscopic sinus surgery 2009 deviated septum Laparoscopic cholecystectomy 2012 Dilation and curettage 2000 miscarriage Dilation and curettage 2001 miscarriage Laparoscopic knee surgery 09/06/13 Laparoscopic knee surgery 03/21/14 Liver resection 04/2012 Living Environment: Pt lives with in a single level home no stairs to get in, step in shower, no adaptive environmental equipment in place. Prior Level of Function: Independent with ADLs and IADLs, active. Patient / Family Goal: Get home. Barriers: None Pain: No report of pain during session. Vital signs: Oxygen stable on room air, blood pressure low (see doc flow) but no signs of dizziness during session. Cognitive Screen Level of alertness: Alert Orientation: X 4 Quality of responses: Good Command following: Multi-step commands Memory: Good Judgement / safety awareness: Good Attention / Concentration: Good Barriers to Learning: None Affect: Appropriate Visual Perception: No issues UE Physical Assessment Dominant Hand: NT ROM: Within functional limits bilateral upper extremites Strength: 5/5 bilateral upper extremities, good clinical resource nurse strength both hands Edema: None Skin Integrity: No issues UE Neurological Function Sensation: Intact light touch bilateral upper extremites Muscle Tone: Normal Proprioception: Not tested Gross Motor: Intact Fine Motor: Intact Activities of Daily Living: UB Dressing: set up with gown UB Grooming: independent LB Dressing: stand by assist due to precautions while seated Toileting: supervision Ambulation with ADL: Stand by assist with IV pole for balance, room and hallway Transfers: Bed mobility; log roll supine<>edge of bed with independence, cues for sequenci ng, sit to stand hand hold assist with contact guard assist. [facility] daily activity assessment [facility] DAILY ACTIVITY - How much help from another person does the patient currently need f or: Lower body dressing 3 Bathing 3 Toileting 4 Upper body dressing 4 Personal grooming 4 Eating meals 4 [facility] Daily Activity Total Score 22 1 - Unable to do/total assistance = Total/Dependent Assist 2 - A lot = Maximum/Moderate Assistance 3 - A little = Minimal/Contact Guard Assist/Supervision 4 None = Modified independent/Independent Interpretation of [facility] Short Form Daily Activity: CMS Modifier (G-Code) Score (in points) % of Functional Impairment, Limitation, or Restriction CN 6 100% impaired, limited, restricted CM 7-9 At least 80%, but less than 100% impaired, limited, or restricted CL 10-14 At least 60%, but less than 80% impaired, limited, or restricted CK 15-19 At least 40%, but less than 60% impaired, limited, or restricted CJ 20-22 At least 20%, but less than 40% impaired, limited, or restricted CI 23 At least 1%, but less than 20% impaired, limited, or restricted CH 24 0% impaired, limited, or restricted Treatment provided this date: Occupational Therapy assessment and evaluation performed. Pt 's bedside for session. ADL training with focus on modifying daily activities to com ply with abdominal precautions with focus on bathing, dressing and bed mobility. Pt educated on abdominal precautions. Education on use of long handled manual writer and sock aide. Education on how to adapt home environment to maximize safety. Ended session: Upright in chair, call light in place ASSESSMENT: Aura Upton is a 53 y.o. female s/p diagnostic laparoscopy, possible biops ies, possible exploratory laparotomy, JAKE, BSO, staging. Pt below baseline in functional abdullahi lity due to abdominal precautions and low endurance. Overall pt has good understanding of li mitations, relates back to previous abdominal surgery. Pt demonstrates safety during ADLs, has safe discharge plan home with partner, assist as needed. No further acute care Occupati onal Therapy needs at current time. Recommendations: Home with assist as needed Activity Recommendations: Encourage pt to participate in ADLs avoiding bending, twisting a nd lifting >5 lbs. PLAN: OT to complete order and sign off on patient. The above plan of care and goals were developed and reviewed with the patient. Good rehab potential for stated goals and requires continued rehabilitation services, given the patie nt's medical condition is such that the skills of a therapist are required for monitoring an d adjustment of interventions. ANEESH HICKS OT Jaz Maldonado RN - 06/06/2014 8:58 PM PDTFormatting of this note might be different from the or iginal. Nursing Handoff Report Primary focus of stay: 06/06 ex-lap, JAKE, Boby Salpingoophorectomy, L pelvic & paraortic lym phadenectomy Pertinent physical findings: mepilex primary drsg to abdomen with shadowing, reg diet, fole y, BP slightly hypotensive; fever of 102.6F last night; MD aware and gave tylenol. Patient a lso overnight was tachy and had low urine output; pagechino MD; bolused patient; patient also co mplained of pain and wanted something stronger ordered. After speaking with both teams the p jacob is to monitor her low blood pressure and if it increases, then we can increase the epidu ral medication rate. Orders to follow up on: there is an order to remove chery in am 06/07 but patient does not w ant it removed until the epidural is discontinued. Please follow up with day team. Last pain assessment/reassessment: epidural running, 4ml/hr Psych/social issues: pleasant, family at the bedside Last patient visit (i.e. Falls/Activity/Comfort/Environment/Toileting/Skin): has not been O OB yet, chery to gravity, skin intact Anticipated or pending procedures: chest xray Maggy Gill RN - 06/06/2014 6:13 PM PDTNursing Handoff Report Primary focus of stay: 06/06 ex-lap, JAKE, Boby Salpingoophorectomy, L pelvic & paraortic lym phadenectomy Pertinent physical findings: mepilex primary drsg to abdomen with shadowing, reg diet, fole y, BP slightly hypotensive Orders to follow up on: remove chery in am Last pain assessment/reassessment: epidural running, 4ml/hr Psych/social issues: pleasant, family at the bedside Last patient visit (i.e. Falls/Activity/Comfort/Environment/Toileting/Skin): has not been O OB yet, chery to gravity, skin intact Anticipated or pending procedures: andoff - Chikis Schulz RN - 06/06/2014 3:21 PM PDTMeets Phase I Discharge Criteria (Stable For Hunt sfer): Yes Major deviations/events or pertinent findings of mathieu-operative stay: alert, oriented x 4, denies pain. Midline abdominal incision c/d/i, scant drainage. PIV x 2, chery. Epidural runn ing at 4 mL/hr. B/P low 100's systolic at baseline. Pt received phenylephrine and 500 mL LR bolus on arrival to pacu. B/P has since been 90's-low 100's systolic. Anticipated post-op needs/devices/follow up: monitor B/P's, pain management Post-Op Diagnosis Codes: * Abdominal or pelvic swelling, mass or lump, unspecified site [789.30] Surgical Procedure Planned - Actual Procedure Performed: Procedure(s) with comments: DIAGNOSTIC LAPAROSCOPY (ATMOSPHERIC TECHNICIAN ONC) - EXPLORATORY LAPAROTOMY; TOTAL ABDOMINAL HYSTERECTOMY; BI LATERAL SALPINGO-OOPHORECTOMY; OMENTECTOMY; LEFT PELVIC AND PARA-AORTIC LYMPHADENECTOMY, sp ecimens to pathology Anesthesia: General Length of procedure: In Room/Out of Room: 3 Hr 35 Min 52 Sec Surgeon(s) and Role: * Miguel Seymour MD - Primary OR positioning comments: supine Neuro: POSS Sedation Level: Sleep, Easy to Arouse Last pain medication given: Pain medication totals: none Additional pain medication information: Epidural Functional Epidural: Yes LUMBER PRESS OPERATOR: N/A Respiratory: RR: 11, O2 Sat: 99 %, O2 Delivery: None (room air) Breath Sounds: WDL KARI: LLL: RUL: RLL: MERNA No Comment: n/a Cardiac: BP: 89/47 mmHg HR: 65 GI: Nausea/Vomiting Status: No Signs/Symptoms: Interventions: Assessment: Comments: tolerating po, denies nausea : Last void: chery Contact Name: Iam Contact Number: [phone] Family contacted: Yes Comment:Poncho at bedside in pacu Belongings:none documented in thi s encounter Plan of [...] | Abdominal or | | | LAPAROSCOPY (ATMOSPHERIC TECHNICIAN | ve | 7:27 AM | pelvic [...] + +--------+ + + + | NON ATMOSPHERIC TECHNICIAN CYTOLOGY | Routin | 06/06/2014 | | [...] + + + + + | [facility] | [address] | [place] [address] | | | SERVICES, CORE | PARK [...] | + + + + + | [facility] | [address] | [place] [address] | | | SERVICESSAM | [address] | | | + [...] | | | LABORATORY | | | CYMRO | | | SERVICES, | | | [...] [facility] | [address] | [place] [address] | | | SERVICES, CORE | PARK [...] [facility] | [address] | [place] [address] | | | SERVICES, CORE | PARK [...] [facility] | [address] | [place] [address] | | | SERVICES, CORE | PARK [...] | | | LABORATORY | | | CYMRO | | | SERVICES, | | | [...] + + + + + | [facility] | [address] | [place] [address] | | | SERVICES, CORE | [address] | | | + + + + + OPERATION RECORD (06/07/2014 8:30 AM PDT) + + | Transcriptions | + + | Miguel Seymour MD - 06/06/2014 12:48 PM PDT Date of Service: 06/06/2014 | | Attending Surgeon: Miguel Seymour MD Logistics Account Manager(s): | | Poncho Arriola MD. Anesthesia: General [...] 06/06/2014 11:52:24DT: 06/06/2014 12:48:01Job #: | | [id number] DEPARTMENT: [id number] ATMOSPHERIC TECHNICIAN [facility] - | | IPDate of Service: 06/07/2014 : [id number] | | Modifier: NoneSuggested CPT: NoneSuggested Procedure [...] | + + + + + | [facility] | [address] | [place] [address] | | | SERVICES, SAM | PARK [...] [facility] | [address] | [place] [address] | | | SERVICES, CORE | PARK [...] [facility] | [address] | [place] [address] | | | SERVICES, CORE | NEAL [...] [facility] | [address] | [place] [address] | | | SERVICES, CORE | PARK [...] | | | (LAB) | | | GAVIN, | | | | | | CORE [...] | | | LABORATORY | | | CYMRO | | | SERVICES, | | | [...] + + + + + | [facility] | [address] | [place] [address] | | | SERVICES, SAM | [address] | | | + + + + + NON ATMOSPHERIC TECHNICIAN CYTOLOGY (06/06/2014) + + + + + + | Component | Value | Ref Range | Performed | Pathologist | | | | | At | Signature | + + + + + + | NON-ATMOSPHERIC TECHNICIAN | SOURCE OF SPECIMEN:A | | [facility] [...] [place] | | | | | | CT(ASCP)Scuba Diver | | | | | | Electronically [...] | + + + + + | [facility] | [address] | [place] [address] | | | PATHOLOGY | [address] [...] | | | | | | corresponding [id number] | | | | | | B: [...] bed | | | | | | ([id number], slides E3-4). | | | | | [...] necessary | | | | | | [facility] | | | | | | care. This test was | | | | | | developed and its | | | | | | performancecharacteristi | | | | | | cs determined by [facility] | | | | | | laboratories. [...] | | | | | | s/pchemoXRT ([id number], | | | | | | [id number]); now with | | | | | [...] | | | | | | | 3D Technologist | | | | | | sections [...] identified. | | | | | | 3D Technologist | | | | | | sections [...] residueB3-6, | | | | | | retail wireless sales representative sections | | | | | | of #1 external | | | | | | excrescenceB7-8, #2 | | | | | | external | | | | | | excrescenceB9-10, entire | | | | | | #3 external | | | | | | [id number], | | | | | | retail wireless sales representative sections | | | | | | of del rio-brown | | | | | | excrescences from inner | | | | | | cyst [id number], | | | | | | additional sections of | | | | | | [id number], retail wireless sales representative | | | | | | [...] endomyometriumD5, | | | | | | retail wireless sales representative sections | | | | | | of right ovaryD6-9, | | | | | | retail wireless sales representative sections | | | | | | of external ovarian | | | | | | [id number], | | | | | | retail wireless sales representative sections | | | | | [...] | + + + + + | [facility] | [address] | [place] [address] | | | PATHOLOGY | [address] [...]
--- OUTSIDE RECORDS SUMMARY | ~2019-10-19 | XMS | Encounter Summary ---
Demographics + + + | Address | [address] | | | [place] [address] | + + + | Home Phone [...] + + + | Author | [facility] | | | and [place] | + + + | Organization | [facility] | | | and [place] | + + + | Address | Unknown | + + + | Phone | Unavailable | + + + Support + + + + + | Name | Relationship | Address | Phone | + + + + + | Poncho Oquendo | ECON | [address] | | | | | [place] | | | | | [address] | | + + + + + | Marta Upton | ECON | [place] | | | | | [address] | | + + + + + Care Team Providers + +------+ + | Care Ballast Inspector Name | Role | Phone | [...] neoplasm of | Epifanio Soler, | [address]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 | MD [address] | [place] Ervin, | | | | | (HCC) | [place] | [place] [address] | | | | | Procedures | [address] | Phone: | | | | | MD | OBED, | [phone] | | | | | DIPHENHYDRAM | [place] [address] | Fax: | | | | | INE HCL | Phone: | [phone] | | | | | INJECTIO, 50 | [phone] | | | | | | MG MD | Fax: | | | | | | [place] | [phone] | | | | | | HCL | | | | | | | INJECTION, 1 | | | | | | | MG MD | | | | | | | DEXAMETHASON | | | | | | | E SODIUM | | | | | | | PHOS, 1 MG | | | | | | | MD | | | | | | | FOSAPREPITAN | | | | | | | T INJECTION, | | | | | | | 1 MG MD | | | | | | | CISPLATIN 10 | | | | | | | MG | | | | | | | INJECTION | | | | | | | MD | | | | | | | GEMCITABINE | | | | | | | HCL | | | | | | | INJECTION, | | | | | | | 200 MG MD | | | | | | | METHYLPREDNI | | | | | | | SOLONE | | | | | | | INJECTION, | | | | | | | 125 MG MD | | | | | | | INJ | | | | | | | FILGRASTIM | | | | | | | GCSF | | | | | | | BIOSIMIL MD | | | | | | | NORMAL | | | | | | | SALINE | | | | | | | SOLUTION | | | | | | | INFUS, 500 | | | | | | | ML MD | | | | | | | NORMAL | | | | | | | SALINE | | | | | | | SOLUTION | | | | | | | INFUS, 250 | | | | | | | ML MD | | | | | | | STERILE | | | | | | | WATER/SALINE | | | | | | | , 10 ML MD | | | | | | | CHEMOTHER, | | | | | | | IV PUSH,EA | | | | | | | ADD DRUG MD | | | | | | | CHEMOTHER, | | | | | | | IV INFUSION, | | | | | | | 1 HR MD | | | | | | | CHEMOTHER, | | | | | | | IV INFUSION, | | | | | | | EA HR MD | | | | | | | CHEMOTHER,NO | | | | | | | N-HORMONE | | | | | | | ANTI-NEOPL, | | | | | | | SUB-Q/IM MD | | | | | | | [...] + + | 05/21/ | Hospital | [facility] | aMthieu Langford | Gallbladder cancer, | | 2017 | Encounter | MED CTR CHEMO | MD Epifanio [address] | carcinoma (HCC) | | | | INFUSION [address] [place] | | | | | [place], | [place] [address] | | | | | [place] [address] | [phone] | | | | | [phone] | | | +--------+ + + + [...] documented as of this encounter Miscellaneous Notes Treatment Plan - Marcelina Johnson RN - 05/21/2016 9:21 AM PDTViewed chart for weight, kenya l signs and lab results. Also viewed chart for completion of medication and allergy review prior to treatment.Marcelina Hassan RN DATE/TIME: 05/21/2016 9:21 documented in this en counter Plan of Treatment +--------+---------+ + + + | Date | Type | Specialty | Care Team | Description | +--------+---------+ + + + | 10/29/ | Office | Urology | Pedro Green, | | | 2019 | Visit | | DO [address]ish[address] | | | | | | [place] [address] | | | | | | [phone] | | | | | | | [...] | | | over 1 Hours, ONCE, Tue05/21/16 at | | | | | [...] | | | | | Intravenous, ONCE, Tue05/21/16 at | | AM PDT | | [...] | | | over 20 Minutes, ONCE, Fri | | | | [...] | | | over 30 Minutes, ONCE, 05/21/16 | | | | | | | [...] | | injection 500 Units 500 Units ( | | 17 12:12 | Units | [...] | | | | | Minutes, ONCE, Tue05/21/16 at | | | | | | | 0945, For 1 dose, Administer | | | | | | | prior to chemotherapy., | | | | | | + +---------+ +---+-------+---+ +---+---+ | | | +---+---+ documented in this encounter"
--- OUTSIDE RECORDS SUMMARY | ~2019-10-19 | XMS | Encounter Summary ---
Demographics + + + | Address | [address] | | | [place] [address] | + + + | Home Phone | | + + + | Preferred Language | Unknown | + + + | Marital Status | | + + + | Quaker Affiliation | Unknown | + + + | Race | White | + + + | Ethnic Group | Not or | + + + Author + + + | Author | [facility] | | | and [place] | + + + | Organization | [facility] | | | and [place] | + + + | Address | Unknown | + + + | Phone | Unavailable | + + + Support + + + + + | Name | Relationship | Address | Phone | + + + + + | Poncho Oquendo | ECON | [address] | | | | | [place] | | | | | [address] | | + + + + + | Marta Upton | ECON | [place] | | | | | [address] | | + + + + + Care Team Providers + +------+ + | Care Investigator Claims Name | Role | Phone | + [...] | (HCC) | [place] | [place] [address] | | | | | Procedures | [address] | Phone: | | | | | AL | OBED, | [phone] | | | | | [place] | [place] [address] | Fax: | | | | | HCL | Phone: | [phone] | | | | | INJECTION, 1 | [phone] | | | | | | MG AL | Fax: | | | | | | FOSAPREPITAN | [phone] | | | | | | T INJECTION, | | | | | | | 1 MG AL | | | | | | | LORAZEPAM | | | | | | | INJECTION, 2 | | | | | | | MG AL | | | | | | | CISPLATIN 10 | | | | | | | MG | | | | | | | INJECTION | | | | | | | AL | | | | | | | GEMCITABINE | | | | | | | HCL | | | | | | | INJECTION, | | | | | | | 200 MG AL | | | | | | | DIPHENHYDRAM | | | | | | | INE HCL | | | | | | | INJECTIO, 50 | | | | | | | MG AL | | | | | | | METHYLPREDNI | | | | | | | SOLONE | | | | | | | INJECTION, | | | | | | | 125 MG AL | | | | | | | DEXAMETHASON | | | | | | | E SODIUM | | | | | | | PHOS, 1 MG | | | | | | | AL NORMAL | | | | | | | SALINE | | | | | | | SOLUTION | | | | | | | INFUS, 500 | | | | | | | ML AL | | | | | | | NORMAL | | | | | | | SALINE | | | | | | | SOLUTION | | | | | | | INFUS, 250 | | | | | | | ML AL | | | | | | | STERILE | | | | | | | WATER/SALINE | | | | | | | , 10 ML AL | | | | | | | INJ HEPARIN | | | | | | | SODIUM PER | | | | | | | 1000U AL | | | | | | | CHEMOTHER, | | | | | | | IV INFUSION, | | | | | | | 1 HR AL | | | | | | | CHEMOTHER, | | | | | | | IV PUSH,EA | | | | | | | ADD DRUG AL | | | | | | | CHEMOTHER, | | | | | | | IV INFUSION, | | | | | | | EA HR AL | | | | | | | CHEMOTHER,NO | | | | | | | N-HORMONE | | | | | | | ANTI-NEOPL, | | | | | | | SUB-Q/IM AL | | | | | | | [...] + + | 10/31/ | Hospital | [facility] | Reinaldo, | Gallbladder cancer, | | 2015 | Encounter | MED CTR CHEMO | Epifanio Soler MD [address] | carcinoma (HCC) | | | | INFUSION [address] | [facility] | (Primary Dx) | | | | [place], | [address] [place] | | | | | [place] [address] | [address] | | | | | [phone] | | | +--------+ + + + [...] + documented as of this encounter Progress Jamila Norwood RN - 10/31/2014 1:16 PM PDTPatient discharged in satisfactory condition . Discharged ambulatory. With family. To home. Future appointments and After Visit Summary (AVS) provided. Jamila Dong RN documented in this encounter Miscellaneous Notes Addendum Note - Marcelina Johnson RN - 11/08/2014 11:09 AM PDTEncounter addended by: Marcelina Hassan RN on: 11/08/2014 11:09
Documentation filed: [place] Treatment PlanningElectr onically signed by Marcelina Johnson RN at 11/08/2014 11:09 AM PDTTreatment Plan - Castillo Jordan RN - 10/31/2014 9:58 AM PDTViewed chart for weight, vital signs and lab results. Also viewed chart for completion of medication and allergy review prior to treatment.Liz Hurst RNDATE/TIME: 10/31/2014 9:58Electronically signed by Liz Jordan RN at 10/15 9:58 AM PDTdocumented in this encounter Plan of Treatment +--------+---------+ + + + | Date | Type | Specialty | Care Team | Description | +--------+---------+ + + + | 10/29/ | Office | Urology | Pedro Green, | | | 2019 | Visit | | DO [address] | | | | | | [place] [address] | | | | | | [phone] | | | | | | | [...] + + | Slide review agrees with autodimike. | [facility] | | [facility] | | | - LABORATORY | + + + + + + + + | Performing | Address | City/State/Zipcode | Phone Number | | Organization | | | | + + + + + | [facility] | [address] | [place] | [phone] | | [facility] | | [address] | | | - LABORATORY | | [...] | | | | | ing Performed: [facility], [address] | | | | | | [address] | | | | | | [place] [address] | | | | + + + + + + + + | Specimen | + + | Blood specimen | | (specimen) | + + + + + + + | Performing | Address | City/State/Zipcode | Phone Number | | Organization | | | | + + + + + | [facility] | [address] | [place] [address] | [phone] | + + + + + CA 125, Quant (10/31/2014 8:36 AM PDT) + +-------+ + + + | Component | Value | Ref Range | Performed | Pathologist | | | | | At | Signature | + +-------+ + + + | Cancer | 17 | 0 - 35 U/mL | [facility] | | | Antigen [address] | | | [facility] | | [...] + | [facility] | [address] | [place] | [phone] | | [facility] | | [address] | | | - LABORATORY | | [...] | AMYLASE, AMMONIA, CPK, | | [facility] | | | | IRON, K+, LDH, [...] | + + + + + | [facility] | [address] | [place] | [phone] | | [facility] | | [address] | | | - LABORATORY | | [...] | | | | mmol/L | [facility] | | | | | | MEDICAL | | | | | | CENTER - | | | | | | LABORATORY | | + + + + + + | K | 4.4 | 3.5 - 5.1 | [facility] | | | | | mmol/L | [facility] | | | | [...] 9 | 7 - 18 mg/dL | [facility] | | | | | | [facility] | | | | | | MEDICAL | | | | | | CENTER - | | | | | | LABORATORY | | + + + + + + | Creatinine | 0.76 | 0.60 - 1.30 | [facility] | | | | | mg/dL | [facility] | | | | | | MEDICAL | | | | | | CENTER - | | | | | | LABORATORY | | + + + + + + | eGFR, | >60Comment: GLOMERULAR | >=60 | [facility] | | | non- | FILTRATION | mL/min/1.73m2 | [facility] | | | [place] | RATE,ESTIMATED | | MEDICAL | | | | mL/min/1.51p0Sxri than | | CENTER - | | [...] | 8.4 | 8.3 - 10.5 | [facility] | | | | | mg/dL | [facility] | | | | | | MEDICAL | | | | | | CENTER - | | | | | | LABORATORY | | + + + + + + | Albumin | 3.5 | 3.2 - 5.0 g/dL | [facility] [...] [address] | [place] | [phone] | | [facility] | | [address] | | | - LABORATORY | | | | + + + + + CBC with Differential (10/31/2014 8:36 AM PDT) + + + + + + | Component | Value | Ref Range | Performed | Pathologist | | | | | At | Signature | + + + + + + | White Blood | 2.6 (L) | 4.0 - 11.0 K/uL | [facility] | | | Cells | | | [facility] | | | | | | MEDICAL | | | | | | CENTER - | | | | | | LABORATORY | | + + + + + + | Red Blood | 2.93 (L) | 3.70 - 5.20 | [facility] | | | Cells | | M/uL | [facility] | | | | | | MEDICAL | | | | | | CENTER - | | | | | | LABORATORY | | + + + + + + | Hemoglobin | 9.5 (L) | 11.5 - 16.0 | [facility] | | | | | g/dL | [facility] | | | | [...] [address] | [place] | [phone] | | [facility] | | [address] | | | - LABORATORY | | [...] | | | | | Intracatheter, ONCE, Adriana 10/31/14 | | AM PDT | | [...] | | | over 1 Hours, ONCE, [facility] 10/31/14 | | | | | | [...] | | | over 20 Minutes, ONCE, [facility] | | | | | | | [...] | | | over 30 Minutes, ONCE, [place] | | | | [...] | | | | | Care, Starting [place] 10/31/14 at | | | | | [...] | | | | | Minutes, ONCE, [facility] 10/31/14 at | | | | | | | 1015, For 1 dose, Administer | | | | | | | prior to chemotherapy., | | | | | | + +---------+ +---+-------+---+ +---+---+ | | | +---+---+ documented in this encounter"
--- OUTSIDE RECORDS SUMMARY | ~2019-10-19 | XMS | Encounter Summary ---
Demographics + + + | Address | [address] | | | [place] [address] | + + + | Home Phone [...] Author + + + | Author | [facility] | + + + | Organization | [facility] | + + + | [...] Team Providers + +------+ + | Care Chlorine Operator Name | Role | Phone | + +------+ + | Tomasa Wagner | PCP | | + +------+ + Reason for Visit + +--------+ + | Reason | Onset | Comments | | | Date | | + +--------+ + | Refill Request | 06/04/ | | | | 2013 | | + +--------+ + Encounter Details +--------+ + + + + | Date | Type | Department | Care Team | Description | +--------+ + + + + | 06/04/ | Telephone | [facility] | Tai Stanton, | Refill Request | | 2013 | | [place] [address] [address] | [address] [facility] [address] | | | | | [facility] | [facility] | | | | | [facility] and | [place], [place] | | | | | [facility] [address] | [address] | | | | | [place], [place] | [phone] | | | | | [address] | | | | | | [phone] | | | +--------+ + + + [...] this encounter Miscellaneous Notes Telephone Encounter - Amy Dinh, RN - 06/04/2013 5:31 PM PDTRN left message with sheree olea notifying her refill authorization of Gabapentin had been sent to [facility] in [facility]. Rn's contact information provided if further questions or concerns. elephone Encounter - Genevieve Huff - 06/04/2013 10:45 AM PDT Aura calling to request refill of gabapentin 300 mg Oral capsule. Surgery/Procedure: Yes Surgery/Procedure Type: 04/28/12: Diagnostic laparoscopy with biopsies, intraoperative ultrasound, partial segment 4B and 5 liver resection (gallbladder fossa with en bloc portal lymphadenectomy). Patient will be out of this medication in 0 days. She is out now. Patient is taking 1 capsule by mouth two times daily. What is your pain scale: Neuropathic Pain Can you merchandise pickup/receiving associate the script if need to or should it be mailed?: Mail Patient informed there is a 72 hour refill policy. Is it alright to leave a detailed message? Yes Pharmacy: Pharmacy Preferences: [facility] documented in this encou nter Plan of Treatment Not on filedocumented as of this encounter Visit Diagnoses Not on filedocumented in this encounter"
--- OUTSIDE RECORDS SUMMARY | ~2019-10-19 | XMS | Encounter Summary ---
Demographics + + + | Address | [address] | | | [place] [address] | + + + | Home Phone | | + + + | Preferred Language | Unknown | + + + | Marital Status | Single | + + + | Sabianism Affiliation | NON | + + + | Race | White | + + + | Ethnic Group | Not or | + + + Author + + + | Author | [facility] | + + + | Organization | [facility] | + + + | Address | [...] Team Providers + +------+ + | Care General Labor Forklift Operator Name | Role | Phone | + +------+ + | Tomasa Wagner | PCP | | + +------+ + Encounter Details +--------+ + + + + | Date | Type | Department | Care Team | Description | +--------+ + + + + | 09/25/ | Telephone | [facility] | Tai Stanton, | | | 2012 | | Center at [facility] [address] | [address] | | | | | [facility] | [facility] | | | | | for Health and | [place], [place] | | | | | [facility], [place] [address] | [address] | | | | | [place], [place] | [phone] | | | | | [address] | | | | | | [phone] | | | +--------+ + + + [...] Telephone Encounter - Beth Osorio MA - 09/26/2012 10:12 AM PDTI spoke with the Pt to i nform her of the physician's recommendations. She stated understanding and requested the ord er to be sent to [facility]. Order faxed to [facility] Pt given phone number to schedule. Electronically signed by Beth Osorio MA at 3 10:22 AM PDTTelephone Encounter - Liz Hamilton RN - 09/25/2012 3:[address] Ritu davis, pt should have abd US done locally and then reviewed before an appt with Dr. Stanton . Need to find out from pt where she would like US done at. Left message on voice mail for p jluis. elephone Encounter - Beth Osorio MA - 09/25/2012 12:17 PM PDTI spoke with the Pt. She stated that 2 weeks a go she noted swelling approximately 5 " in diameter near her incision site that was open at her last OV with Dr. Stanton on 06/21/12. She notes mild discomfort when touching the area an d states it feels full of fluid. Pt fredy fever, redness and discharge from the area. She is having nausea but believes its from the radiation treatment. I told her that I would odalys e this with the physician and call back with recommendations. elephone Encounter - Willie Alva - 09/25/2012 9:46 AM PDTPt calling to speak with RN about concern for her seroma which has developed afte r surgery. DOS 04/28. She states that she has been continuing with radiation therapy and was told that the incisi on would heal over, however now there is tenderness near the incision with a lot of swelling . 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
--- OUTSIDE RECORDS SUMMARY | ~2019-10-19 | XMS | Encounter Summary ---
Demographics + + + | Address | [address] | | | [place] [address] | + + + | Home Phone | | + + + | Preferred Language | Unknown | + + + | Marital Status | | + + + | Lutheran Affiliation | Unknown | + + + | Race | White | + + + | Ethnic Group | Not or | + + + Author + + + | Author | [facility] | | | and [place] | + + + | Organization | [facility] | | | and [place] | + + + | Address | Unknown | + + + | Phone | Unavailable | + + + Support + + + + + | Name | Relationship | Address | Phone | + + + + + | Poncho Omar Oquendo | ECON | [address] | | | | | [place] | | | | | [address] | | + + + + + | Marta Upton | ECON | [place] | | | | | [address] | | + + + + + Care Team Providers + +------+ + | Care Stain Applicator Name | Role | Phone | + [...] [address] | | | | | Personal | [place], | [place] | | | | | 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, | [place], | | | | | 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[address] | [place] [address] | | | | | neoplasm of | RICARAD LINDQUIST | Phone: | | | | | other site | [address] | [phone] | | | | | in | [place], | Fax: | | | | | gastrointest | [place] [address] | [phone] | | | | | inal tract | Phone: | | | | | | Procedures | [phone] | | | | | | CT Abdomen | Fax: | | | | | | Pelvis w | [phone] | | | | | | Contrast | | | +--------+--------+ + + + + Reason for Visit + + + | Reason | Comments | + + + | Follow-up | | + + + Encounter Details +--------+ + + + + | Date | Type | Department | Care Team | Description | +--------+ + + + + | 09/25/ | Hospital | [facility] | [place], | Personal history of | | 2013 | Encounter | [facility] | Epifanio Soler MD [id number] | malignant neoplasm | | | | [facility] | [facility] | of other site in | | | | [place] | [address], [place] | gastrointestinal | | | | [place] [address] | [address] | tract (Primary Dx); | | | | [phone] | | Chronic low back | | | | | | pain; Personal | | | | | | history of 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| | | | | neoplasm of other | | | | | | site in | | | | | | gastrointestinal | | | | | | tract | +--------+ + + + + Social [...] + + + | Blood Pressure | 119/68 | 09/25/2013 1:00 PM | | | | | PDT | | + + + + + | Pulse | 94 | 09/25/2013 1:00 PM | | | | | PDT | | + + + + + | Temperature | 36.7 C (98.1 F) | 09/25/2013 1:00 PM | | | | | PDT | | + + + + + | Respiratory Rate | 16 | 09/25/2013 1:00 PM | | | | | PDT | | + + + + + | Oxygen Saturation | 98% | 09/25/2013 1:00 PM | | | | | PDT | | + + + + + | Inhaled Oxygen | - | - | | | Concentration | | | | + + + + + | Weight | 85.5 kg (188 lb 7.9 | 09/25/2013 1:00 PM | | | | oz) | PDT | | + + + + + | Height | 162 cm (5' 3.78") | 09/25/2013 1:00 PM | | | | | PDT | | + + + + + | Body Mass Index | 32.58 | 09/25/2013 1:00 PM | | | | | PDT [...] documented as of this encounter Progress Notes Epifanio Najera MD - 09/25/2013 8:09 PM PDTFormatting of this note might be differe nt from the original. IDENTIFYING STATEMENT: Aura Upton is a 52-year-old woman from [place], [place] who h as 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 Tai Stanton of the [facility] April 28, 2012. ACTIVE DIAGNOSES: 1. Presentation with biliary colic in March of 2012 status post cholecystectomy and live r biopsy by Dr. Brandon Garcia March 29, 2012, pathological specimen [id number], analyzed by Dr. Bowers of [facility] and was notable for a poorly-differentiated adenoca rcinoma of the gallbladder. Liver biopsy demonstrated mild portal inflammation. 2. On April 28, 2012, she successfully underwent an R0 resection by Dr. Tai Stanton at [facility], pathological specimen [id number] was notable for the absence of any residual carcinoma within the gallbladder bed. However, 2/8 regional ly mph nodes contained regionally metastatic disease. 3. Consultation by Dr. Elva Grey of the [facility] on May returned the recommendation for adjuvant chemoradiation therapy following [id number] as follows: Capecitabine at 750 mg/m sq twice daily days 1 through 14 given concurrently with Gemcitabine 1000 mg/m sq on day 1, day 8. Cycle length is 21 days. The prescription is for four cycles to be followed by capecitabine at 665 mg/m sq twice d aily given concurrently with radiation therapy. CHIEF COMPLAINT: Aura Upton returned to clinic on September 25, 2013 for followup five months after completing combined modality adjuvant chemotherapy and radiation therapy for he r stage IIIA cholangiocarcinoma diagnosed exactly 1 year ago. REVIEW OF SYSTEMS: Constitutional: Reports that she still has a tendency to tire easily. Denies high fevers, s haking chills, anorexia, nausea, vomiting, weight loss. Reports that she has night sweats on ce in awhile. Ear, Nose, Mouth, Throat: Denies [...] that she had a colonoscopy in July by Dr. Garcia that showed only juan alberto e diverticulitis. Genitourinary: Denies hematuria or dysuria. Musculoskeletal: Reports that she had been struggling with right knee pain. Also has some r ight low back pain. States that she has significant arthritis in her both thumbs. Neurologic: Reports that she gets occasional headaches. Denies visual changes, or numbness/ tingling of the extremities. Endocrine: Denies peripheral edema or heat/cold intolerance. Hematologic: Denies spontaneous bruising or bleeding. Integumentary: Denies rash, wounds or other skin concerns. Pain: Reports that she has 1-2/10 pain in her right knee today. States that she hasn't take n anything for this pain. Note:Here today for followup and lab. She did have a CT done today at 1200. Denies any othe r new concerns to report today. No past medical history on file. No past surgical history on file. History Social History Marital Status: Spouse Name: N/A Number of Children: N/A Years of Education: N/A Occupational History Not on file. Social History Main Topics Smoking status: Not on file Smokeless tobacco: Not on file Alcohol Use: Not on file Drug Use: Not on file Sexually Active: Not on file Other Topics Concern Not on file Social History Narrative No narrative on file No family history on file. 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 docusate calcium (SURFAK) 240 mg capsule (Taking) Take 240 mg by mouth as needed. gabapentin (NEURONTIN) 300 mg capsule (Taking) Take 300 mg by mouth nightly. HYDROcodone-acetaminophen (VICODIN) 5-500 mg per tablet (Taking) Take 1 tablet by mouth e very 4 hours as needed. ALLERGIES: No known drug allergies. PHYSICAL EXAMINATION: BP 119/68 | Pulse 94 | Temp 36.7 C (98.1 F) (Oral) | Resp 16 | Ht 1.62 m (5' 3.78") | Wt 85.5 kg (188 lb 7.9 oz) | BMI 32.58 kg/m2 | SpO2 98% EYES: Conjunctivae clear. Sclerae anicteric. ENMT: Oropharynx free of lesions, mucous membranes moist. CARDIOVASCULAR: Regular rate and rhythm. Normal S1 and S2 without murmur, gallop, or rub. LUNGS: Good air movement bilaterally. No rhonchi, wheeze, or rales. ABDOMEN: A chevron scar over the abdomen is well healed with some area of lymphedema in the subcutaneous tissues just caudad to the incision. SKIN: No petechiae, ecchymoses, or rash. EXTREMITIES: No cyanosis, clubbing, or edema. NEUROLOGIC: Alert and oriented x3. Face symmetric. Voice articulate. Station and gait withi n normal limits. LABORATORY DATA: Results for AURA UPTON ( ) as of 09/25/2013 20:11 Ref. Range 09/25/2013 11:05 WBC Latest Range: 4.0-11.0 K/uL 5.3 RBC: Latest Range: 3.70-5.20 M/uL 4.79 Hgb Latest Range: 11.5-16.0 g/dL 13.8 Hct, Final Latest Range: 34.0-47.0 % 41.6 MCV Latest Range: 83.0-101.0 fL 86.7 MCH Latest Range: 28.0-35.0 pg 28.9 MCHC Latest Range: 32.0-36.0 g/dL 33.3 RDW Latest Range: <15.0 % 13.4 Platelet Count Latest Range: 140-440 K/uL 223 MPV No range found 7.4 Absolute Lymphocytes Latest Range: 0.60-3.20 K/uL 1.50 Absolute Monocytes Latest Range: 0.00-1.00 K/uL 0.50 Absolute Eosinophils Latest Range: 0.00-0.40 K/uL 0.10 Absolute Basophils Latest Range: 0.00-0.10 K/uL 0.10 % Neutrophils Latest Range: 45.0-82.0 % 58.7 % Lymphocytes Latest Range: 20.0-45.0 % 28.9 % Monocytes Latest Range: 4.0-12.0 % 8.6 % Eosinophils Latest Range: 0.0-5.0 % 2.6 % Basophils Latest Range: 0.0-1.0 % 1.2 (H) Absolute Neutrophils Latest Range: 1.80-8.50 K/uL 3.10 NA Latest Range: 136-149 mmol/L 137 K Latest Range: 3.5-5.1 mmol/L 3.9 CL Latest Range: 98-109 mmol/L 104 CO2 Latest Range: 24-31 mmol/L 26 ANION GAP Latest Range: 3-16 mmol/L 7 GLUCOSE Latest Range: 70-109 mg/dL 107 BUN Latest Range: 7-18 mg/dL 10 BUN/CREA No range found 13.0 CREA Latest Range: 0.60-1.30 mg/dL 0.77 ALBUMIN Latest Range: 3.2-5.0 g/dL 3.9 Albumin/Globulin ratio No range found 1.4 Total protein Latest Range: 6.0-7.8 g/dL 6.7 EGFR IF NOT Latest Range: >=60 mL/min/1.73m2 >60 Calcium Latest Range: 8.3-10.5 mg/dL 8.9 ALK PHOS Latest Range: 40-110 U/L 159 (H) ALT Latest Range: 6-45 U/L 25 AST Latest Range: 10-42 U/L 28 LD TOTAL Latest Range: 91-180 U/L 168 BILIRUBIN TOTAL Latest Range: 0.1-1.5 mg/dL 0.9 GLOBULIN No range found 2.8 CEA Latest Range: 0.0-10.0 ng/mL 0.9 IMAGING: ENHANCED CT ABDOMEN AND PELVIS 09/25/2013 11:50 AM CLINICAL HISTORY: Malignant neoplasm of extrahepatic bile ducts, eval extent of disease COMPARISON: CT abdomen March 19, 2013, CT chest, abdomen and pelvis January 15, 2013 and April 12, 2012 TECHNIQUE: Axial images are performed through the abdomen and pelvis following the uneventful intravenous administration of 85 mL Omnipaque 350 contrast. Oral contrast was also administered Coronal and sagittal reformations are also performed. ABDOMEN FINDINGS: A fat-containing Bochdalek type diaphragmatic hernia is again visible posteriorly on the left. Imaged lung bases and mediastinum are otherwise unremarkable. Postoperative changes are again noted within the central, inferior liver at the level of the gallbladder fossa and estevan hepatis, with numerous surgical clips persisting in this vicinity and extending along the course of the main portal vein and common bile duct. Previously described hypoattenuation along the inferior hepatic margin appears more circumscribed and favors a healing operative margin on the sagittal images in particular, and appearing more pronounced on the axial images due to volume averaging with residual hepatic parenchyma. A serpiginous, small caliber tubular appearing structure again courses along the inferior margin of this defect and is stable, potentially reflecting a vessel. The appearance is otherwise similar to the study of March 19, 2013. Portal venous branches in this vicinity appear widely patent, along with the main portal vein and its tributaries and the hepatic veins. The liver is otherwise unremarkable. No biliary ductal dilation is evident. The gallbladder is absent. The spleen, pancreas, adrenal glands and kidneys are unremarkable. There is no hydronephrosis. There is left colonic diverticulosis without evidence of diverticulitis. The bowel and appendix are otherwise unremarkable. No free air, free fluid, pathologic lymph node enlargement or hernia is evident. Minimal abdominal aortic calcification is present. There is lumbar facet hypertrophy. Bones and soft tissues are otherwise unremarkable. PELVIS FINDINGS: The bladder, uterus and adnexa are unremarkable. Rounded calcifications persist in the deep right pelvic cavity and are consistent with phleboliths. No free air, free fluid, pathologic lymph node enlargement, or hernia is evident. Bones and soft tissues are unremarkable. IMPRESSION - 1. MORE CIRCUMSCRIBED APPEARANCE OF A REGION OF DECREASED ATTENUATION ALONG THE INFERIOR MARGIN OF THE ESTEVAN HEPATIS IN THE VICINITY OF PREVIOUS INSTRUMENTATION, FAVORING A HEALING OPERATIVE MARGIN, WITH STABLE APPEARANCE OF A SMALL, TUBULAR SHAPED STRUCTURE COURSING ALONG THE INFERIOR MARGIN OF THE LIVER, POTENTIALLY REFLECTING A VESSEL. NO BILIARY DUCTAL DILATION, ADENOPATHY OR OTHER SUSPICIOUS FINDING IS EVIDENT. 2. LEFT COLONIC DIVERTICULOSIS WITHOUT EVIDENCE OF DIVERTICULITIS. Dictated and Signed by: Axel Frost MD Electronically signed: 09/25/2013 2:01 PM ASSESSMENT: Aura continues to have good quality of life and no evidence of recurrence o f her cholangiocarcinoma 1 and 1/2 year after resection and subsequently followed by adjuvan t chemotherapy and radiation therapy. PLAN: Continue with observation. Return to clinic in 6 months for clinical, laboratory, and advanced imaging followup. Waleska Celis RN - 09/25/2013 1:09 PM PDTREVIEW OF SYSTEMS Constitutional: Reports that she still has a tendency to tire easily. Denies high fevers, s haking chills, anorexia, nausea, vomiting, weight loss. Reports that she has night sweats o nce in awhile. Ear, Nose, Mouth, Throat: Denies [...] that she had a colonoscopy in July by Dr. Garcia that showed only s ome diverticulitis. Genitourinary: Denies hematuria or dysuria. Musculoskeletal: Reports that she had been struggling with right knee pain. Also has some right low back pain. States that she has significant arthritis in her both thumbs. Neurologic: Reports that she gets occasional headaches. Denies visual changes, or numbness /tingling of the extremities. Endocrine: Denies peripheral edema or heat/cold intolerance. Hematologic: Denies spontaneous bruising or bleeding. Integumentary: Denies rash, wounds or other skin concerns. Pain: Reports that she has 1-2/10 pain in her right knee today. States that she hasn't mp en anything for this pain. Note:Here today for followup and lab. She did have a CT done today at 1200. Denies any ot her new concerns to report today.Electronically signed by Waleska Mcdonald RN at 014 1:17 PM PDTdocumented in this encounter Plan of Treatment +--------+---------+ + + + | Date | Type | Specialty | Care Team | Description | +--------+---------+ + + + | 10/29/ Office | Urology | Pedro Green, | | | 2019 | Visit | | DO [address] | | | | | | [place] [address] | | | | | | [phone] | | | | | | | | +--------+---------+ + + + documented as of this encounter Procedures + +--------+ + + + | Procedure Name | Priori | Date/Time | Associated Diagnosis | Comments | | | ty | | | | + +--------+ + + + | CA 19-9, QUANT | STAT | 09/25/2013 | Personal history | Results for this | | | | 11:05 AM | of 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procedure are in the | | | | PDT | neoplasm of other | results section. | | | | | site in | | | | | | gastrointestinal | | | | | | tract | | + +--------+ + + + | CBC WITH | STAT | 09/25/2013 | Personal history | Results for this | | DIFFERENTIAL | | 11:05 AM | of 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procedure are in the | | | | PDT | neoplasm of other | results section. | | | | | site in | | | | | | gastrointestinal | | | | | | tract | | + +--------+ + + + | LACTATE | STAT | 09/25/2013 | Personal history | Results for this | | DEHYDROGENASE | | 11:05 AM | of 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procedure are in the | | | | PDT | neoplasm of other | results section. | | | | | site in | | | | | | gastrointestinal | | | | | | tract | | + +--------+ + + + | CEA | STAT | 09/25/2013 | Personal history | Results for this | | | | 11:05 AM | of 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procedure are in the | | | | PDT | neoplasm of other | results section. | | | | | site in | | | | | | gastrointestinal | | | | | | tract | | + +--------+ + + + | COMPREHENSIVE | STAT | 09/25/2013 | Personal history | Results for this | | METABOLIC PANEL | | 11:05 AM | of 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procedure are in the | | | | PDT | neoplasm of other | results section. | | | | | site in | | | | | | gastrointestinal | | | | | | tract | | + +--------+ + + + documented in this encounter Results CT Abdomen Pelvis w Contrast (03/18/2014 12:03 PM PST) + + | Specimen | + + | | + + + + + | Narrative | Performed At | + + + | EXAM: CT ABDOMEN PELVIS W CONTRAST dated 03/18/2014 11:51 AM | [facility] | | HISTORY:surveillence cholangiocarcinoma Comparison: Compared to | LAB | | September 25, 2013 and March 19, 2013 CT abdomen and pelvis | | | examinations. TECHNIQUE: Imaging is performed from the lung bases | | | through the pubic symphysis following the uneventful intravenous | | | administration of 100 mL Omnipaque 350. DOSE: DLP 777.47 mGy-cm | | | FINDINGS: LUNG BASES: Left-sided fat-containing diaphragmatic | | | hernia. This is unchanged. The lung bases are otherwise clear. | | | LIVER: Postsurgical changes throughout the gallbladder fossa. The | | | liver is otherwise unremarkable. GALLBLADDER: The gallbladder is | | | surgically absent. The intrahepatic and extrahepatic biliary ducts | | | are appropriate given the postsurgical state. SPLEEN: The spleen | | | is unremarkable. There is no splenomegaly. The spleen contains | | | one calcification indicating prior granulomatous disease. | | | PANCREAS: The pancreas is small but otherwise unremarkable. No | | | dilatation of the pancreatic duct. ADRENALS: There may have been | | | partial right adrenalectomy. No left adrenal nodules. KIDNEYS: | | | The kidneys are symmetrically enhancing. There are no focal renal | | | lesions. There is no nephrolithiasis. There is no obstructive | | | uropathy. BOWEL: There is no evidence for gastrointestinal tract | | | obstruction. There is no evidence for appendicitis. There is | | | diverticulosis which predominates in the sigmoid colon. There is no | | | evidence for active diverticulitis. VASCULATURE AND LYMPH NODES: | | | No aneurysmal dilatation of the abdominal aorta. No abdominal or | | | pelvic lymphadenopathy. BLADDER: Unremarkable. UTERUS AND | | | ADNEXA:The uterus and adnexa are unremarkable. There is a probable | | | follicle in the left ovary. This is a new development. Please | | | correlate with the patient's menstrual status. BONES: There are | | | no acute osseous abnormalities. There are no lytic or blastic bone | | | lesions. OTHER: There is a small amount of free fluid dependently | | | in the pelvis. There is no free air. IMPRESSION - Probable | | | follicle newly developed, in the left ovary. Small volume of | | | pleural fluid in the pelvis. Both of these may be physiologic if | | | this patient is not postmenopausal. Please correlate with patient's | | | menstrual status. Dictated and Signed by: Mathieu Field | | | MD Anshu Electronically signed: 03/18/2014 2:18 PM | | + + + + + | Procedure Note | + + | Edmundo, Rad Results In - 03/18/2014 2:22 PM PST EXAM: CT ABDOMEN PELVIS W CONTRAST | | dated 03/18/2014 11:51 AMHISTORY:surveillence cholangiocarcinomaComparison: Compared to | | September 25, 2013 and March 19, 2013 CT abdomen andpelvis examinations.TECHNIQUE: | | Imaging is performed from the lung bases through the pubic symphysisfollowing the | | uneventful intravenous administration of 100 mL Omnipaque 350.DOSE: DLP 777.47 | | mGy-cmFINDINGS: LUNG BASES: Left-sided fat-containing diaphragmatic hernia. This is | | unchanged. The lung bases are otherwise clear.LIVER: Postsurgical changes throughout the | | gallbladder fossa. The liver isotherwise unremarkable.GALLBLADDER: The gallbladder is | | surgically absent. The intrahepatic andextrahepatic biliary ducts are appropriate given | | the postsurgical state.SPLEEN: The spleen is unremarkable. There is no splenomegaly. | | The spleencontains one calcification indicating prior granulomatous disease.PANCREAS: | | The pancreas is small but otherwise unremarkable. No dilatation ofthe pancreatic | | duct.ADRENALS: There may have been partial right adrenalectomy. No left | | adrenalnodules.KIDNEYS: The kidneys are symmetrically enhancing. There are no focal | | renallesions. There is no nephrolithiasis. There is no obstructive uropathy.BOWEL: | | There is no evidence for gastrointestinal tract obstruction. There is noevidence for | | appendicitis. There is diverticulosis which predominates in thesigmoid colon. There is | | no evidence for active diverticulitis.VASCULATURE AND LYMPH NODES: No aneurysmal | | dilatation of the abdominal aorta. No abdominal or pelvic lymphadenopathy.BLADDER: | | Unremarkable.UTERUS AND ADNEXA:The uterus and adnexa are unremarkable. There is a | | probablefollicle in the left ovary. This is a new development. Please correlate | | withthe patient's menstrual status.BONES: There are no acute osseous abnormalities. | | There are no lytic or blasticbone lesions.OTHER: There is a small amount of free fluid | | dependently in the pelvis. Thereis no free air.IMPRESSION - Probable follicle newly | | developed, in the left ovary. Small volume of pleuralfluid in the pelvis. Both of | | these may be physiologic if this patient is notpostmenopausal. Please correlate with | | patient's menstrual status.Dictated and Signed by: Mathieu Brasher MD Electronically | | signed: 03/18/2014 2:18 PM | | | |ADRENALS: There may have been partial right adrenalectomy. No left adrenal | |nodules. | | | |KIDNEYS: The kidneys are symmetrically enhancing. There are no focal renal | |lesions. There is no nephrolithiasis. There is no obstructive uropathy. | | | |BOWEL: There is no evidence for gastrointestinal tract obstruction. There is no | |evidence for appendicitis. There is diverticulosis which predominates in the | |sigmoid colon. There is no evidence for active diverticulitis. | | | |VASCULATURE AND LYMPH NODES: No aneurysmal dilatation of the abdominal aorta. | |No abdominal or pelvic lymphadenopathy. | | | |BLADDER: Unremarkable. | | | |UTERUS AND ADNEXA:The uterus and adnexa are unremarkable. There is a probable | |follicle in the left ovary. This is a new development. Please correlate with | |the patient's menstrual status. | | | |BONES: There are no acute osseous abnormalities. There are no lytic or blastic | |bone lesions. | | | |OTHER: There is a small amount of free fluid dependently in the pelvis. There | |is no free air. | | | |IMPRESSION - | | | |Probable follicle newly developed, in the left ovary. Small volume of pleural | |fluid in the pelvis. Both of these may be physiologic if this patient is not | |postmenopausal. Please correlate with patient's menstrual status. | | | | | | | | | |Dictated and Signed by: Mathieu Brasher MD | | Electronically signed: 03/18/2014 2:18 PM | + + + +---------+ + + | Performing | Address | City/State/Zipcode | Phone Number | | Organization | | | | + +---------+ + + | [facility] | | | [phone] | + +---------+ + + | [facility] | | | [phone] | + +---------+ + + CA 19-9, Quant (03/18/2014 11:04 AM PST) + + + + + + | Component | Value | Ref Range | Performed | Pathologist | | | | | At | Signature | + + + + + + | CA 19-9 | 12Comment: The Siemens | 0 - 37 U/mL | [facility]FERENCE | | | | (formerly [employer]) [employer]ia | | LAB [facility] | | | | Centaur immunoassay | | | | | | method is used.Results | | | | | | obtained with different | | | | | | assay methods or kits | | | | | | cannot be | | | | | | usedinterchangeably.Test | | | | | | ing Performed: [facility], [address] | | | | | | [place] [address] | | | | + + + [...] [address] | [place] [address] | [phone] | + + + + + CEA (03/18/2014 11:04 AM PST) + +-------+ + + + | Component | Value | Ref Range | Performed | Pathologist | | | | | At | Signature | + +-------+ + + + | CEA | 0.5 | 0.0 - 10.0 | [facility] | [...] [address] | [place] | [phone] | | [facility] | | [address] | | | - LABORATORY | | | | + + + + + | [address] | [address] | [place] | | | [facility] | | [address], [facility] | | | - LABORATORY | | | | + + + + + Lactate Dehydrogenase (03/18/2014 11:04 AM PST) + +-------+ + + + | Component | Value | Ref Range | Performed | Pathologist | | | | | At | Signature | + +-------+ + + + | LDH TOTAL | 165 | 91 - 180 U/L | [facility] | | | | | | [facility] [...] + | [facility] | [address] | [place], [place] | [phone] | | [facility] | | [address] | | | - LABORATORY | | | | + + + + + | [facility] | [address] | [place], [place] | | | [facility] | | [address] [place] [address] | | | - LABORATORY | | | | + + + + + Comprehensive Metabolic Panel (03/18/2014 11:04 AM PST) + + + + + + | Component | Value | Ref Range | Performed | Pathologist | | | | | At | Signature | + + + + + + | Na | 134 (L) | 136 - 149 | [facility] | | | | | mmol/L | [facility] | | [facility] | [facility] | | | | | | CENTER - | | | | | | LABORATORY | | + + + + + + | K | 4.0 | 3.5 - 5.1 | [facility] | [...] CO2 | 27 | 24 - 31 mmol/L | [facility] | | | | | | [facility] | | | | | | [facility]ICAL | | | | | | CENTER - | | | | | | LABORATORY | | + + + + + + | Anion Gap | 4 | 3 - 16 mmol/L | [facility] [...] + + + + | Creatinine | 0.71 | 0.60 - 1.30 | [facility] | | | | | mg/dL | [facility] | | | | | | MEDICAL | | | | | | CENTER - | | | | | | LABORATORY | | + + + + + + | eGFR, | >60Comment: GLOMERULAR | >=60 | [facility] | | | non- | FILTRATION | mL/min/1.73m2 | [facility] | | | [place] | RATE,ESTIMATED | | MEDICAL | | | | mL/min/1.19b8Npxv than | | CENTER - | | [...] | | | | | mg/dL | [facility] | | | | | [...] Total | 6.9 | 6.0 - 7.8 g/dL | [facility] | | | Protein | | | [facility] | | | | | | MEDICAL | | | | | | CENTER - | | | | | | LABORATORY | | + + + + + + | AST | 60 (H) | 10 - 42 U/L | [facility] | | | | | | [facility] | | | | | | MEDICAL | | | | | | CENTER - | | | | | | LABORATORY | | + + + + + + | ALT | 70 (H) | 6 - 45 U/L | [facility] | | | | | | [facility] | | | | | | MEDICAL | | | | | | CENTER - | | | | | | LABORATORY | | + + + + + + | Alkaline | 181 (H) | 40 - 110 U/L | [facility] | | | Phosphatase | | | [facility] | | | | | | MEDICAL | | | | | | CENTER - | | | | | | LABORATORY | | + + + + + + | Globulin | 3.1 | g/dL | [facility] | | | | | | [facility] | | | | | | MEDICAL | | | | | | CENTER - | | | | | | LABORATORY | | + + + + + + | Albumin/Sakina | 1.2 | | [facility] | | | bulin Ratio | | | [facility] | | | | | | MEDICAL | | | | | | CENTER - | | | | | | LABORATORY | | + + + + + + | BUN/Creatin | 11.3 | | [facility] | | | ine [...] + | [facility] | [address] | [place], [place] | [phone] | | [facility] | | [address] | | | - LABORATORY | | | | + + + + + | [facility] | [address] | [place], [place] | | | [facility] | | [address] | | | - LABORATORY | | | | + + + + + CBC w/ Auto Differential (03/18/2014 11:04 AM PST) + + + + + + | Component | Value | Ref Range | Performed | Pathologist | | | | | At | Signature | + + + + + + | White Blood | 9.6 | 4.0 - 11.0 K/uL | [facility] | | | Cells | | | [facility] | | | | | | MEDICAL | | | | | | CENTER - | | | | | | LABORATORY | | + + + + + + | Red Blood | 4.94 | 3.70 - 5.20 | [facility] | | | Cells | | M/uL | [facility] | | | | | | MEDICAL | | | | | | CENTER - | | | | | | LABORATORY | | + + + + + + | Hemoglobin | 14.8 | 11.5 - 16.0 | [facility] | | | | | g/dL | [facility] | | | | | | MEDICAL | | | | | | CENTER - | | | | | | LABORATORY | | + + + + + + | Hematocrit | 44.3 | 34.0 - 47.0 % | [facility] | | | | | | [facility] | | [facility] | | | MEDICAL | | | | | | CENTER - | | | | | | LABORATORY | | + + + + + + | MCV | 89.7 | 83.0 - 101.0 fL | [facility] [...] + + + + | MCHC | 33.4 | 32.0 - 36.0 | [facility] | | | | | g/dL | [facility] | | | | | | MEDICAL | | | | | | CENTER - | | | | | | LABORATORY | | + + + + + + | RDW-CV | 12.6 | <15.0 % | [facility] | | | | | | [facility] | | | | | | MEDICAL | | | | | | CENTER - | | | | | | LABORATORY | | + + + + + + | Platelet | 246 | 140 - 440 K/uL | [facility] | | | Count | | | [facility] | | | | | | MEDICAL | | | | | | CENTER - | | | | | | LABORATORY | | + + + + + + | MPV | 7.5 | fL | [facility] | | | | | | [facility] | | | | | | MEDICAL | | | | | | CENTER - | | | | | | LABORATORY | | + + + + + + | % | 70.9 | 45.0 - 82.0 % | [facility] | | | Neutrophils | | | [facility] | | | | | | MEDICAL | | | | | | CENTER - | | | | | | LABORATORY | | + + + + + + | % | 19.6 (L) | 20.0 - 45.0 % | [facility] | | | Lymphocytes | | | [facility] | | | | | | MEDICAL | | | | | | CENTER - | | | | | | LABORATORY | | + + + + + + | % Monocytes | 5.9 | 4.0 - 12.0 % | [facility] | | | | | | [facility] | | | | | | MEDICAL | | | | | | CENTER - | | | | | | LABORATORY | | + + + + + + | % | 3.0 | 0.0 - 5.0 % | [facility] | | | Eosinophils | | | [facility] | | | | | | MEDICAL | | | | | | CENTER - | | | | | | LABORATORY | | + + + + + + | % Basophils | 0.6 | 0.0 - 1.0 % | [facility] | | | | | | [facility] | | | | | | MEDICAL | | | | | | CENTER - | | | | | | LABORATORY | | + + + + + + | Absolute | 6.80 | 1.80 - 8.50 | [facility] | | | Neutrophils | | K/uL | [facility] | | | | | | MEDICAL | | | | | | CENTER - | | | | | | LABORATORY | | + + + + + + | Absolute | 1.90 | 0.60 - 3.20 | [facility] | | | Lymphocytes | | K/uL | [facility] | | | | | | MEDICAL | | | | | | CENTER - | | | | | | LABORATORY | | + + + + + + | Absolute | 0.60 | 0.00 - 1.00 | [facility] | | | Monocytes | | K/uL | [facility] | | | | | | MEDICAL | | | | | | CENTER - | | | | | | LABORATORY | | + + + + + + | Absolute | 0.30 | 0.00 - 0.40 | [facility] | [...] + + | Performing | Address | City[facility] | Phone Number | | Organization | | | | + + + + + | [facility] | [address] | [place], [place] | [phone] | | [facility] | | [address] | | | - LABORATORY | | | | + + + + + | [facility] | [address] | [place], [place] | | | [facility] | | [id number] [place] [address] | | | - LABORATORY | | | | + + + + + Lactate Dehydrogenase (09/25/2013 11:05 AM PDT) + +-------+ + + + | Component | Value | Ref Range | Performed | Pathologist | | | | | At | Signature | + +-------+ + + + | LDH TOTAL | 168 | 91 - 180 U/L | [facility] [...] + | [facility] | [address] | [place], [place] | [phone] | | [facility] | | [address] | | | - LABORATORY | | | | + + + + + | [facility] | [address] | [place], [place] | | | [facility] | | [address], [facility] | | | - LABORATORY [...] eGFR, | >60Comment: GLOMERULAR | >=60 | [facility] | | | non- | FILTRATION | mL/min/1.73m2 | [facility] | | | [place] | RATE,ESTIMATED | | MEDICAL | | | | mL/min/1.41f7Gsue than | | CENTER - | | [...] | | | | | mg/dL | [facility] | | | | | [...] + | [facility] | [address] | [place], [place] | [phone] | | [facility] | | [address] | | | - LABORATORY | | | | + + + + + | [facility] | [address] | [place], [place] | | | [facility] | | [address], [facility] | | | - LABORATORY | | | | + + + + + CEA (09/25/2013 11:05 AM PDT) + +-------+ + + + | Component | Value | Ref Range | Performed | Pathologist | | | | | At | Signature | + +-------+ + + + | CEA | 0.9 | 0.0 - 10.0 | [facility] | | | | | ng/mL | [facility] | | | | [...] [address] | [place] | [phone] | | [facility] | | [address] | | | - LABORATORY | | | | + + + + + | [facility] | [address] | [place] | | | [facility] | | [address] | | | - LABORATORY | | | | + + + + + CBC with Differential (09/25/2013 11:05 AM PDT) + +---------+ + + + | Component | Value | Ref Range | Performed | Pathologist | | | | | At | Signature | + +---------+ + + + | White Blood | 5.3 | 4.0 - 11.0 K/uL | [facility] | | | Cells | | | [facility] | | | | | | MEDICAL | | | | | | CENTER - | | | | | | LABORATORY | | + +---------+ + + + | Red Blood | 4.79 | 3.70 - 5.20 | [...] | | | | | | [facility] | | | | | | MEDICAL [...] | | Lymphocytes | | | [facility] | | [...] + | [facility] | [address] | [place] | [phone] | | [facility] | | [address] | | | - LABORATORY | | | | + + + + + | [facility] | [address] | [place], [place] | | | [facility] | | [address] | | | - LABORATORY | [...] | | | | | [address], | | | | | | [place] [address] | | | | + + + [...] [address] | [place] [address] | [phone] | + + + + + documented in this encounter Visit Diagnoses + + | Diagnosis | + + | Personal history of malignant neoplasm of other site in gastrointestinal tract - | | Primary | + + | Chronic low back pain Lumbago | + + documented in this encounter
--- OUTSIDE RECORDS SUMMARY | ~2019-10-19 | XMS | Encounter Summary ---
Demographics + + + | Address | [address] | | | [place] [address] | + + + | Home Phone | | + + + | Preferred Language | Unknown | + + + | Marital Status | Single | + + + | Moravian Affiliation | NON | + + + [...] Team Providers + +------+ + | Care Singeing Torch Operator Name | Role | Phone | + +------+ + PCP | Unavailable | + +------+ + Encounter Details +--------+ + + + + | Date | Type | Department | Care Team | Description | +--------+ + + + + | 04/07/ | Facilities Specialist | Dig[facility]ive Health | Tai Stanton, | Gallbladder cancer | | 2012 | | Center at [facility] [address] | [address] [facility] | (HCC) (Primary Dx) | | | | [facility] | [facility] | | | | | for Health and | [place], [place] | | | | | [facility], [address] | [address] | | | | | [place], [place] | [phone] | | | | | [address] | | | | | | [phone] | | | +--------+ + + + [...] | | | | | | Institution: [facility] | | | | [facility] | | | | | [facility] [place] | | | | | | Lab,[place], [place] | | | | | | [address]Huppptc Accession | | | | | | Number: [id number] | | | | | | Collection [...] | + + + + + | [facility] | [address] | [place] [address] | | | PATHOLOGY | [address] | | | + + + + + documented in this encounter Visit Diagnoses + + | Diagnosis | + + | 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
--- OUTSIDE RECORDS SUMMARY | ~2019-10-19 | XMS | Encounter Summary ---
Demographics + + + | Address | [address] | | | [place] [address] | + + + | Home Phone [...] | Author | [facility] | | | and [place] | + + + | Organization | [facility] | | | and [place] | + + + | Address | Unknown | + + + | Phone | Unavailable | + + + Support + + + + + | Name | Relationship | Address | Phone | + + + + + | Poncho Oquendo | ECON | [address] | | | | | [place] | | | | | [address] | | + + + + + | Marta Upton | ECON | [place] | | | | | [address] | | + + + + + Care Team Providers + +------+ + | Care Sanitation Worker Name | Role | Phone | [...] | (HCC) | [place] | [place] [address] | | | | | Procedures | [address] | Phone: | | | | | [place] | OB[place], | [phone] | | | | | DIPHENHYDRAM | [place] [address] | Fax: | | | | | INE HCL | Phone: | [phone] | | | | | INJECTIO, 50 | [phone] | | | | | | MG [place] | Fax: | | | | | | [place] | [phone] | | | | | | HCL | | | | | | | INJECTION, 1 | | | | | | | MG [place] | | | | | | | DEXAMETHASON | | | | | | | E SODIUM | | | | | | | PHOS, 1 MG | | | | | | | MI | | | | | | | FOSAPREPITAN | | | | | | | T INJECTION, | | | | | | | 1 MG MI | | | | | | | CISPLATIN 10 | | | | | | | MG | | | | | | | INJECTION | | | | | | | MI | | | | | | | GEMCITABINE | | | | | | | HCL | | | | | | | INJECTION, | | | | | | | 200 MG MI | | | | | | | METHYLPREDNI | | | | | | | SOLONE | | | | | | | INJECTION, | | | | | | | 125 MG MI | | | | | | | INJ | | | | | | | FILGRASTIM | | | | | | | GCSF | | | | | | | BIOSIMIL MI | | | | | | | NORMAL | | | | | | | SALINE | | | | | | | SOLUTION | | | | | | | INFUS, 500 | | | | | | | ML MI | | | | | | | NORMAL | | | | | | | SALINE | | | | | | | SOLUTION | | | | | | | INFUS, 250 | | | | | | | ML MI | | | | | | | STERILE | | | | | | | WATER/SALINE | | | | | | | , 10 ML MI | | | | | | | CHEMOTHER, | | | | | | | IV PUSH,EA | | | | | | | ADD DRUG MI | | | | | | | CHEMOTHER, | | | | | | | IV INFUSION, | | | | | | | 1 HR MI | | | | | | | CHEMOTHER, | | | | | | | IV INFUSION, | | | | | | | EA HR MI | | | | | | | CHEMOTHER,NO | | | | | | | N-HORMONE | | | | | | | ANTI-NEOPL, | | | | | | | SUB-Q/IM MI | | | | | | | [...] + + | 05/21/ | Hospital | [facility] | Mathieu Langford | Gallbladder cancer, | | 2017 | Encounter | [facility] | MD Epifanio [address] | carcinoma (HCC) | | | | INFUSION [address] [place] | | | | | [place], | [place] [address] | | | | | [place] [address] | [phone] | | | | | [phone] | | | +--------+ + + + [...] [address] | | | | | | [place] [address] | | | | | | [phone] | | | | | | | [...]
--- OUTSIDE RECORDS SUMMARY | ~2019-10-19 | XMS | Encounter Summary ---
Demographics + + + | Address | [address] | | | [place] [address] | + + + | Home Phone [...] + + + | Author | [facility] | + + + | Organization | [facility] | + + + | [...] Team Providers + +------+ + | Care Administrative Services Assistant Name | Role | Phone | + +------+ + | Prudencio Isaac MD | PCP | | + +------+ + Reason for Visit + + + | Reason | Comments | + + + | Postoperative visit | | + + + Encounter Details +--------+---------+ + + + | Date | Type | Department | Care Team | Description | +--------+---------+ + + + | 05/17/ | Office | Digestive Health | Tai Stanton, | Gallbladder | | 2012 | Visit | Center at [facility] [address] | [address] [facility] | carcinoma (HCC) | | | | [address] [facility] | [address] | (Primary Dx) | | | | for Health and | [place], [place] | | | | | [facility], [facility] [address] | [address] | | | | | [place], [place] | [phone] | | | | | [address] | | | | | | [phone] | | | +--------+---------+ + + + [...] + + + | Blood Pressure | 117/74 | 05/17/2012 11:29 AM | | | | | PDT | | + + + + + | Pulse | 87 | 05/17/2012 11:29 AM | | | | | PDT | | + + + + + | Temperature | 36.7 C (98.1 F) | 05/17/2012 11:29 AM | | | | | PDT | | + + + + + | Respiratory Rate | 15 | 05/17/2012 11:29 AM | | | | | PDT | | + + + + + | Oxygen Saturation | - | - | | + + + + + | Inhaled Oxygen | - | - | | | Concentration | | | | + + + + + | Weight | 77.7 kg (171 lb 4.8 | 05/17/2012 11:29 AM | | | | oz) | PDT | | + + + + + | Height | 162.6 cm (5' 4") | 05/17/2012 11:29 AM | | | | | PDT | | + + + + + | Body Mass Index | 29.4 | 05/17/2012 11:29 AM | | | | | PDT | | + + + + + documented in this encounter Progress Notes Tai Stanton MD - 05/21/2012 7:07 AM PDTI saw and evaluated the patient. I agree with the findings and the plan of care as documented in the resident s note. Tai Stanton M.D. [facility] ([facility]) Professor and Vice-Packaging Design Engineer of Surgery [facility] Pancreatic Disease Research Pancreatic/ HepatoBiliary and Foregut Working Groups Mail Code [id number], [place]. [address] email: [email or web address] Gary Marrero MD - 05/17/2012 12:45 PM PDTBLUE SURGERY Attending Surgeon: Tai Stanton MD Author: GARY DONOHUE MD Date: 05/17/2012 Identification: Aura Upton is a 51 year old female with history significant for the following operations: 04/29/12: Diagnostic laparoscopy with biopsies, intraoperative ultrasound, partial segment 4 B and 5 liver resection (gallbladder fossa with en bloc portal lymphadenectomy). Subjective: Patient is doing well since her operation. Her pain is reasonable well controlled with sharmaine apentin, oxycodone and lidocaine patches. She is tolerating a diet and having bowel movemen ts. Denies fevers and chills. Does note right flank cramping relieved with lidocaine patch es. Also, just recently noticed clear yellow drainage from the right upper portion of her w ound. Objective: Ht 162.6 cm (5' 4")( < 3 %ile), Wt 77.701 kg (171 lbs 4.8 oz)( < 3 %ile), BP 117/74, Pulse 87, Temperature 36.7 C (98.1 F), Temperature source Oral, RR 15, BMI 29.40 kg/(m^2). Physical Examination: General: No apparent distress. Alert HEENT: Atraumatic, normocephalic. Pulmonary: Clear and no cough or difficulty breathing. Cardiac: Regular rate and rhythm. Abdomen: Soft, no distention. Mild incisional tenderness. Small seroma right upper portio n of the wound draining yellow serous fluid, fascia intact on probing. Packed with 1/4 in g auze. [place] removed, steristrips placed. Extremities: WWP, no significant edema Laboratory Data: Path: 04/28/12 Final Pathologic Diagnosis: A: Right costal margin, peritoneal lesion, biopsy: - Fat necrosis and surgical site changes, negative for malignancy B: Segment 7, biopsy: - Liver parenchyma and fibrous tissue with chronic inflammation and focal necrosis, negative for malignancy C: Abdominal wall overlying, biopsy: - Fibrous tissue with surgical site changes, negative for malignancy - Unremarkable skeletal muscle D: Cystic duct, excision: - Cystic duct negative for dysplasia and malignancy E: Gallbladder bed, resection: - Liver parenchyma with surgical site changes, negative for malignancy - Metastatic carcinoma in two of eight lymph nodes (2/8), with largest deposit 0.5 cm F: Gallbladder bed, resection: - Liver parenchyma with surgical site changes, negative for malignancy Gallbladder bed resection (specimen E) (FSE1-2): Double black deep radial margin (blue ink) (FSE1): - Negative for malignancy Single blue liver margin-medial (orange) (FSE1): - Negative for malignancy Double blue lateral liver margin (purple) (FSE2): - Negative for malignancy Blue looped superficial radial margin (black) (FSE2): - Negative for malignancy Gallbladder bed resection #2 (specimen F): - Negative for malignancy Path 03/29/12: Final Pathologic Diagnosis: Gallbladder, cholecystectomy: - Poorly differentiated carcinoma with neuroendocrine features (see comment) - Depth of invasion: Extending to the subserosal connective tissue - Extending to within less than 0.1 cm of inked serosal margin - Cystic duct margin negative by report - Extensive angiolymphatic invasion identified - AJCC 7th edition pathologic stage pT2 Nx Comment: We appreciate the opportunity to review this case and agree with the referring elsy cortes's observations. Sections from the gallbladder show a deeply infiltrative population of malignant cells characterized by high nuclear to cytoplasm ratios and frequent mitotic figures. Some of malignant cells are arranged in trabecula and nests, and have cellular features of nuclear molding and scant cytoplasm; all of which are features of small cell carcinoma. Other areas have larger cells with nuclear nucleoli. The provided stains, synaptophysin, NSE, and chromogranin, are strongly positive in both malignant populations. There are adenomatous changes in the background gallbladder epithelium, which supports a primary gallbladder malignancy. Imaging: (Vascular Labs, Ultrasound, Computed Tomography) None Assessment and Plan: Patient is a 51 y.o. Female with incidental finding of T2 gallbladder adenocarcinoma now ~2 wks s/p partial segment 4B and 5 liver resection. Pathology demonstrates 2/8 positive lymph nodes, but is otherwise negative. She is doing well post op. Has a small seroma now packe d and drained, but otherwise, functional status continues to improve. - Local wound care with daily packing and dressing changes - F/u in clinic in 2-3 weeks for wound check - To see oncology this afternoon for discussion and planning regarding chemotherapy. Dr. Stanton is the attending surgeon and agree with my assessment and plan. GARY DONOHUE MD General Surgery, [address] [id number] documented in this encounter Plan of Treatment Not on filedocumented as of this encounter Visit Diagnoses + + | Diagnosis | + + | Gallbladder 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
--- OUTSIDE RECORDS SUMMARY | ~2019-10-19 | XMS | Encounter Summary ---
Demographics + + + | Address | [address] | | | [place] [address] | + + + | Home Phone | | + + + | Preferred Language | Unknown | + + + | Marital Status | Single | + + + | Yazdanism Affiliation | NON | + + + | Race | White | + + + | Ethnic Group | Not or | + + + Author + + + | Author | [facility] | + + + | Organization | [facility] | + + + [...] Team Providers + +------+ + | Care Precision Grinder External Name | Role | Phone | + +------+ + | Valeriy Carmona MD | PCP | | + +------+ + Encounter Details +--------+--------+ + + + | Date | Type | Department | Care Team | Description | +--------+--------+ + + + | 12/23/ | Intake | Transfer Center | | | | 2018 | | [address] | | | | | | [place] | | | | | | [place] [address] | | | +--------+--------+ + + + [...]
--- OUTSIDE RECORDS SUMMARY | ~2019-10-19 | XMS | Encounter Summary ---
Demographics + + + | Address | [address] | | | [place] [address] | + + + | Home Phone | | + + + | Preferred Language | Unknown | + + + | Marital Status | Single | + + + | Nondenominational Affiliation | NON | + + + [...] Team Providers + +------+ + | Care Seamstress Fitter Name | Role | Phone | + +------+ + PCP | Unavailable | + +------+ + Encounter Details +--------+ + + + + | Date | Type | Department | Care Team | Description | +--------+ + + + + | 03/29/ | Hospital | LAB SURGICAL | | | | 2012 | Encounter | PATHOLOGY [address] | | | | | | [address] | | | | | | [place], [place] | | | | | | [address] | | | +--------+ + + + [...]
--- OUTSIDE RECORDS SUMMARY | ~2019-10-19 | XMS | Encounter Summary ---
Demographics + + + | Address | [address] | | | [place] [address] | + + + | Home Phone [...] Team Providers + +------+ + | Care Sales And Distribution Clerk Name | Role | Phone | + +------+ + | Tomasa Wagner | PCP | | + +------+ + Encounter Details +--------+ + + + + | Date | Type | Department | Care Team | Description | +--------+ + + + + | 06/09/ | Abstract | Digestive Health | Tai Stanton, | | | 2012 | | Center at [facility] [address] | [address] [facility] | | | | | [facility] | [facility] | | | | | for Health and | [place], [place] | | | | | [facility] [place] [address] | [address] | | | | | [place], [place] | [phone] | | | | | [address] | | | | | | [phone] | | | +--------+ + + + [...]
--- OUTSIDE RECORDS SUMMARY | ~2019-10-19 | XMS | Encounter Summary ---
Demographics + + + | Address | [address] | | | [place] [address] | + + + | Home Phone [...] Author + + + | Author | [facility] | + + + | Organization | [facility] | + + + | [...] Team Providers + +------+ + | Care Circulation Analyst Name | Role | Phone | [...] 2014 | | HIEN Carreon | [address] [facility] | LAPAROTOMY; TOTAL | | | | Rd [facility] | [address] [facility] [address] | ABDOMINAL | | | | Hospital Admitting | [place], [place] | HYSTERECTOMY; | | | | Desk Located on the | [address] | BILATERAL | | | | 9th floor | [phone] | SALPINGO-OOPHORECTOM | | | | [place], [place] | | Y; OMENTECTOMY; LEFT | | | | [address] | | PELVIC AND | | | [...] DISCHARGE SUMMARY Author: Roger Guadalupe MD PGY1 TECHNICAL SUPPORT COORDINATOR Attending Physician: Dr. Henderson Admission Date: 06/06/2014 [...] o these places to get your medications. [facility] - enoxaparin 40 mg/0.4 mL Syrg [address] [facility] [place] [address] Hours: 8AM-9PM Mon-Fri; 9-5:30PM Sat-Sun You may [...] To contact your provider, please call the [facility] clinic at [phone] during daytime hours. During evening or weekend hours, please call the [facility] paging lever operator at [phone] and ask for the Impact Hammer Operator Oncology staff on-call. Reasons to call the [...] stable Discharging Physician: Roger Guadalupe MD PGY1 TECHNICAL SUPPORT COORDINATOR Service Pager: [phone] Attending Physician: Dr. Henderson I saw and [...] assessment and plan. Roger Guadalupe MD PGY1 TECHNICAL SUPPORT COORDINATOR Service Pager: [phone] I saw and evaluated the patient. I [...] assistance. Primary service notified. SASHA DALY MD [facility] [address]A [address] [facility], 4th Floor Mail Code: [place], [place] [address] Sasha Antony MD - 06/08/2014 8:52 AM [...] and recommendations with primary care team provider solderer furnace/oncology. SASHA DALY MD BILLING INFORMATION [facility] DEPARTMENT: [id number] Place of Service:- Inpatient Date of Service: 06/08/2014 CSN: [id number] Suggested Modifier: None Suggested CPT: 81980 - Daily mgmt epidural/subarachnoid drug administration Prolonged [...] assessment and plan. Roger Guadalupe MD PGY1 TECHNICAL SUPPORT COORDINATOR Service Pager: [phone] I saw and evaluated the patient. I [...] separate note in EPIC). SASHA DALY MD [facility] 14A [address] [facility], 4th Floor Mail Code: [address] [id number] Sasha Antony MD - 06/07/2014 7:39 AM [...] 125 mL/hr intravenous CONTINUOUS 125 mL/hr (06/07/14 6228) Type: Epidural Rate: 4 mL/hour Anticoagulants: enoxaparin [...] care team provider . SASHA DALY MD [facility] [address]A [address] [facility], 4th Floor Mail Code: CH4P [place], [place] [address] BILLING INFORMATION [facility] DEPARTMENT: [id number] Place of Service:- Inpatient Date of Service: 06/07/2014 CSN: [id number] Suggested Modifier: GC - Resident Involved Suggested CPT: 46336 - Daily mgmt epidural/subarachnoid drug administration Prolonged [...] this note might be different from the [facility] GYNECOLOGY ONCOLOGY INPATIENT PROGRESS NOTE Hospital Day: [...] Service: 06/06/2014 Attending Surgeon: Miguel Seymour MD Automotive Salesperson(s): Poncho Arriola MD. Anesthesia: General endotracheal anesthesia [...] note for this encounter. MD DAPHNEY Tenorio/JE /[id number] [facility] DEPARTMENT: [id number] CANVASSING MANAGER ONC [facility] Place of Service:[address] - Date of Service: 06/07/2014 CSN: [id number] Suggested Modifier: None Suggested CPT: None Suggested Procedure CPT: To Campaign Advisor Suggested Diagnosis: Ovarian ca egeestMiguel MD - [...] The patient was positioned appropriately. The following steam shovel engineer s were present during the team pause: Surgical team, anesthesia team, psychiatric technician assistant, circulati ng nurse. Preoperative Diagnosis: 1) Left [...] note for this encounter. MIGUEL SEYMOUR MD [facility] [address]A [address] [place] [address] documented in this encounter Consult Notes Laura [...] Significant medications resumed. Insurance Status: First [employer] w/[employer] as secondary. Fills at [facility] and [employer] in [place], [place]. Source of Medication Information: Patient and Pharmacy Reliability: Reliable All questions concerning medications, including OTC and herbal products, were addressed. For questions regarding this information please contact pharmacy, pager [phone] signed by Laura Vazquez PharmD at 06/07/2014 [...] Kpad. Psych/social issues: pleasant, at bedside. From [place]. Last patient visit (i.e. Falls/Activity/Comfort/Environment/Toileting/Skin): ambulates with [...] [place]pad. Psych/social issues: pleasant, at bedside. From [place]. Last patient visit (i.e. Falls/Activity/Comfort/Environment/Toileting/Skin): ambulates with [...] and agreeable to perform 2x each day. [facility] BASIC MOBILITY How much difficulty does the [...] the skills of a therapist. Interpretation of [facility] Short Form - Basic Mobility: CMS Modifier [...] PT lan of Care - O Latoya Lord RN - 06/07/2014 2:26 PM PDTProblem: Case [...] pelvic swelling, mass or lump, unspecified site [659.10] , EXPLORATORY LAPAROTOMY CANVASSING MANAGER TOTAL ABDOMINAL HYSTERECTOMY Lives With: spouse;child(sonal), dependent Living Arrangement: house Functional Level Prior to Admission: 0-->independent Transportation Available: Per private vehicle driven by Equipment Currently used at Home/DME Provider: none Home Health/Infusion Agency: n/a Insurance/Funding: [employer]; i.Sec Service Assessment: Per chart review and discussion with patient, her and team, no discharg e planning assistance from DANIKA WERNER anticipated at this time. [facility] at [facility] pt is medically ready for discharge, he will assist patient with ADLs until she retur ns to baseline. Will continue to follow through discharge. Please see other disciplines' progress notes for their discharge recommendations. Please page egg caser if any CM arranged service needs arise. Anticipated Discharge Needs: Anticipated Discharge Disposition: home Assessment done by: Latoya TAPIA, RN 14A Obgyn Nurse Pager: [phone] lan of Care - Jordan Aneesh leon, [...] Strength: 5/5 bilateral upper extremities, good clinical technologist strength both hands Edema: None Skin Integrity: [...] hand hold assist with contact guard assist. [facility] daily activity assessment [facility] DAILY ACTIVITY - How much help from another person does the patient currently need f or: Lower body dressing 3 Bathing 3 Toileting 4 Upper body dressing 4 Personal grooming 4 Eating meals 4 [facility] Daily Activity Total Score 22 1 - Unable to do/total assistance = Total/Dependent Assist 2 - A lot = Maximum/Moderate Assistance 3 - A little = Minimal/Contact Guard Assist/Supervision 4 None = Modified independent/Independent Interpretation of [facility] Short Form Daily Activity: CMS Modifier (G-Code) [...] precautions. Education on use of long handled steam conditioner operator and sock aide. Education on how to [...] Procedure Performed: Procedure(s) with comments: DIAGNOSTIC LAPAROSCOPY (CANVASSING MANAGER ONC) - EXPLORATORY LAPAROTOMY; TOTAL ABDOMINAL HYSTERECTOMY; [...] pain medication information: Epidural Functional Epidural: Yes AIR QUALITY MANAGER: N/A Respiratory: RR: 11, O2 Sat: 99 %, O2 Delivery: None (room air) Breath Sounds: WDL KARI: LLL: RUL: RLL: MERNA No Comment: n/a Cardiac: BP: 89/47 mmHg HR: 65 GI: Nausea/Vomiting Status: No Signs/Symptoms: Interventions: Assessment: Comments: tolerating po, denies nausea : Last void: chery Contact Name: Iam Contact Number: [phone] Family contacted: Yes Comment:Poncho at bedside in [...] | Abdominal or | | | LAPAROSCOPY (CANVASSING MANAGER | ve | 7:27 AM | pelvic [...] + +--------+ + + + | NON CANVASSING MANAGER CYTOLOGY | Routin | 06/06/2014 | | [...] | + + + + + | [facility] | [address] [facility] | [place] [address] | | | SERVICES, CORE | PARK [...] | + + + + + | [facility] | [address] | [place] [address] | | | SERVICESSAM | [address] [...] | | | LABORATORY | | | VINCENTIAN | | | SERVICES, | | | [...] [facility] | [address] | [place] [address] | | | SERVICES, CORE | PARK [...] [facility] | [address] | [place] [address] | | | SERVICES, CORE | PARK [...] [facility] | [address] | [place] [address] | | | SERVICES, CORE | PARK [...] | | | LABORATORY | | | VINCENTIAN | | | SERVICES, | | | [...] | + + + + + | [facility] | [address] | [place] [address] | | | SERVICES, CORE | [address] | | | + + + + + OPERATION RECORD (06/07/2014 8:30 AM PDT) + + | Transcriptions | + + | Miguel Seymour MD - 06/06/2014 12:48 PM PDT Date of Service: 06/06/2014 | | Attending Surgeon: Miguel Seymour MD Automotive Salesperson(s): | | Poncho Arriola MD. Anesthesia: General [...] 06/06/2014 11:52:24DT: 06/06/2014 12:48:01Job #: | | [id number] DEPARTMENT: [id number] CANVASSING MANAGER [facility]C [facility] Service: - | | IPDate of Service: 06/07/2014 : [id number] | | Modifier: NoneSuggested CPT: NoneSuggested Procedure [...] | + + + + + | [facility] | [address] | [place] [address] | | | SERVICES, SAM | PARK [...] [facility] | [address] | [place] [address] | | | SERVICES, CORE | PARK [...] [facility] | [address] | [place] [address] | | | SERVICES, CORE | NEAL [...] [facility] | [address] | [place] [address] | | | SERVICES, CORE | PARK [...] | | | LABORATORY | | | VINCENTIAN | | | SERVICES, | | | [...] | + + + + + | [facility] | [address] | [place] [address] | | | SERVICES, SAM | [address] | | | + + + + + NON CANVASSING MANAGER CYTOLOGY (06/06/2014) + + + + + + | Component | Value | Ref Range | Performed | Pathologist | | | | | At | Signature | + + + + + + | NON-CANVASSING MANAGER | SOURCE OF SPECIMEN:A | | [facility] [...] San | | | | | | CT(ASCP)Automobile Upholsterer Apprentice | | | | | | Electronically [...] + + + + + | [facility] | [address] | [place] [address] | | | PATHOLOGY | [address] [...] | | | | | | corresponding [id number] | | | | | | B: [...] bed | | | | | | ([id number], slides E3-4). | | | | | [...] necessary | | | | | | [facility] | | | | | | care. This test was | | | | | | developed and its | | | | | | performancecharacteristi | | | | | | cs determined by [facility] | | | | | | [...] | | | | | | s/pchemoXRT ([id number], | | | | | | [id number]); now with | | | | | [...] | | | | | | | Garment Supervisor | | | | | | sections [...] identified. | | | | | | Garment Supervisor | | | | | | sections [...] residueB3-6, | | | | | | sales representative aircraft sections | | | | | | of #1 external | | | | | | excrescenceB7-8, #2 | | | | | | external | | | | | | excrescenceB9-10, entire | | | | | | #3 external | | | | | | cbxedxhzbmoK93, | | | | | | sales representative aircraft sections | | | | | | of del rio-brown | | | | | | excrescences from inner | | | | | | cyst yiboxapsdqL64-42, | | | | | | additional sections of | | | | | | axypxI40, sales representative aircraft | | | | | | sections [...] endomyometriumD5, | | | | | | sales representative aircraft sections | | | | | | of right ovaryD6-9, | | | | | | sales representative aircraft sections | | | | | | of external ovarian | | | | | | gbzhumN70-75, | | | | | | sales representative aircraft sections | | | | | | [...] + + + + + | [facility] | [address] | [place] [address] | | | PATHOLOGY | [address] [...]
--- OUTSIDE RECORDS SUMMARY | ~2019-10-19 | XMS | Encounter Summary ---
Demographics + + + | Address | [address] | | | [place] [address] | + + + | Home Phone | | + + + | Preferred Language | Unknown | + + + | Marital Status | Single | + + + | Religion Affiliation | NON | + + + [...] Providers + +------+ + | Care Dye Range Tender Name | Role | Phone | + +------+ + | Tomasa Wagner | PCP | | + +------+ + Encounter Details +--------+ + + + + | Date | Type | Department | Care Team | Description | +--------+ + + + + | 05/28/ | [facility] | Miguel Seymour, | surgery | | 2014 | Encounter | [facility] | [address] | | | | | [address] | [facility] | | | | | [address] | [place], [place] | | | | | [address], 7th floor | [address] | | | | | [place], [place] | [phone] | | | | | [address] | | | | | | [phone] | | | +--------+ + + + [...]
--- OUTSIDE RECORDS SUMMARY | ~2019-10-19 | XMS | Encounter Summary ---
Demographics + + + | Address | [address] | | | [place] [address] | + + + | Home Phone [...] Team Providers + +------+ + | Care Guest Service Host Name | Role | Phone | + +------+ + | Tomasa Wagner | PCP | | + +------+ + Reason for Visit + +--------+ + | Reason | Onset | Comments | | | Date | | + +--------+ + | Treatment Planning | 06/09/ | | | | 2012 | | + +--------+ + | Question | 06/09/ | | | | 2012 | | + +--------+ + Encounter Details +--------+ + + + + | Date | Type | Department | Care Team | Description | +--------+ + + + + | 06/09/ | Telephone | Hematology/Medical | Elva Grey, | Treatment Planning; | | 2012 | | Oncology at [facility] | [address] | Question | | | | [address] | [place] [address] | | | | | Mailcode: CH7M | [place] [address] | | | | | [facility] | [phone] | | | | | and Healing, | | | | | | [place] [address], [facility] | | | | | | [place], [place] | | | | | | [address] | | | | | | [phone] | | | +--------+ + + + [...] Telephone Encounter - Latoya Goodson RN - 06/12/2012 10:21 AM PDTTC with pt: 1. Advised it is best to maintain all chemo tx's with same tx unit; discussed obtaining au thorization on short notice and also that recommended regimen is 2-week cycle. Pt has met [facility] Dr. Najera and has a tx plan in place-she is in town late afternoon 06/21 and wanted t o receive tx if possible. Also advised this would require provider visit (as it would be we ek 2 and we are not initiating tx)-pt will follow through with chemo at home. 2. Pt has been obtaining information from the Internet and questions chemotx choice: revkimberly michaels pertinent topics discussed and documented by Bob Grey MD at time of consultation; orin ewed rarity of disease and need for extrapolation and use of [facility] results and data; assured pt she is welcome to schedule appt again with Dr. Grey if she needs to discuss further. She states she reviewed all information with Dr. Najera after appt at [facility] but has [facility] e been researching online. A: Appropriate to start and receive chemotx with local oncologist; option to schedule appt with Dr. Grey again to review/discuss disease, tx,prognosis, recommendations, etc. Pt d eclines at present. elephone Encounter - Jihan Hand - 06/12/2012 8:40 AM PDTPatient calls to add to her message from last we ek, she would like to ask the MD if the treatment that is ordered is the most aggressive sary atment option? She thought they had discussed this at her apt but cannot recall the answer . She notes she still has a "seroma" that is about 1 inch deep and want to be sure its okay to start chemo with that. Thank you. elephone Encounter - Jihan Ram - 06/09/2012 4:09 PM PDTPatient reports she has planned to have treatment lo analia at [facility], she will be due for treatment on 06-22-12. She will be at [facility] on 06-21-12 for follow up with Dr. Stanton and she wonders is she could have that one t reatment due 06-22-12 at [facility]? She will have all other treatments at [place], this would be more convenient for her. Please call to advise if this is possible. documented in this encounter Plan of Treatment Not on filedocumented as of this encounter Visit Diagnoses Not on filedocumented in this encounter
--- OUTSIDE RECORDS SUMMARY | ~2019-10-19 | XMS | Encounter Summary ---
Demographics + + + | Address | [address] | | | [place] [address] | + + + | Home Phone [...] + + + | Author | [facility] | | | and [place] | + + + | Organization | [facility] | | | and [place] | + + + | Address | Unknown | + + + | Phone | Unavailable | + + + Support + + + + + | Name | Relationship | Address | Phone | + + + + + | Poncho Oquendo | ECON | [address] | | | | | [place] | | | | | [address] | | + + + + + | Marta Upton | ECON | [place] | | | | | [address] | | + + + + + Care Team Providers + +------+ + | Care Stroke Program Coordinator Name | Role | Phone | + +------+ + | Valeriy Carmona DO | TAWNYA | | + +------+ + Encounter Details +--------+ + + + + | Date | Type | Department | Care Team | Description | +--------+ + + + + | 08/28/ | Orders Only | [facility] | Reinaldo, | Mass of breast, | | 2016 | | MED CTR PROVIDER | Epifanio Soler MD [address] | right (Primary Dx) | | | | ONCOLOGY [address] [facility] | | | | | [place], | [address] [place], [place] | | | | | [place] [address] | [id number] | | | | | [phone] | | | +--------+ + + + [...] | | | | | [place] [address] | | | | | | [phone] | | | | | | | | +--------+---------+ + + + documented as of this encounter Results US Breast Limited Right (03/05/2016 1:42 PM PST) + + | Specimen | + + | | + + + + + | Narrative | Performed At | + + + | US BREAST LIMITED RIGHT 03/05/2016 1:00 PM EXAM: [facility] | [facility] | | DIAGNOSTIC [...] LIMITED RIGHT 03/05/2016 1:00 | | PMEXAM: [facility] TOMOSYN DIAGNOSTIC RIGHT dated 03/05/2016 12:50 PMHISTORY:EVALUATE THE | | STABILITY OF MAMMOGRAPHIC ASYMMETRIES AND A SMALL,. TECHNIQUE: Unilateral digital CC | | and MLO. Shree synthesis is performed. CADutilized.COMPARISON: Mammograms dating back | | to 2012 and 2015FINDINGS: Scattered areas of fibroglandular density are present. [...] | | | + +---------+ + + [facility]PE Tomosynthesis Diagnostic Right (03/05/2016 1:08 PM [facility]) + + | Specimen | + + | | + + + + + | Narrative | Performed At | + + + | EXAM: [facility] TOMOSYN DIAGNOSTIC RIGHT dated 03/05/2016 12:50 PM | [facility] | | HISTORY:EVALUATE THE STABILITY OF MAMMOGRAPHIC ASYMMETRIES AND A | | | SMALL,. TECHNIQUE: Unilateral digital CC and MLO. Shree | | | synthesis is performed. CAD utilized. COMPARISON: Mammograms | | | dating back to 2012 and 2016 FINDINGS: Scattered areas of | | | fibroglandular density are present. The pattern is stable. There | | | are no areas of developing architectural distortion. There are no | | | distinct masses. There are no suspicious clusters of | | | microcalcifications. Previously identified asymmetries in the mid and | | | outer right breast are unchanged and are without evidence of focal | | | architectural distortion or mass identified on Tomosynthesis imaging. | | | Shree images demonstrate no suspicious mass or architectural | | | distortion. Images were reviewed with CAD. ULTRASOUND RIGHT | | | BREAST: Radial and antiradial images were obtained of the right | | | breast which demonstrated no focal abnormality. Previously seen 2 mm | | | cyst and 3.5 mm ovoid probably benign mass were not identified. No | | | suspicious pathology identified. IMPRESSION - BI-RADS | | | CATEGORY 2: BENIGN FINDINGS RECOMMENDATION: Normal annual | | | screening interval. Dictated and Signed by: Geremias Gutierres MD | | | Electronically signed: 03/05/2016 2:49 PM | | + + + + + | Procedure Note | + + | Edmundo, Rad Results In - 03/05/2016 2:52 PM PST EXAM: [facility] TOMOSYN DIAGNOSTIC RIGHT | | dated 03/05/2016 12:50 PMHISTORY:EVALUATE THE STABILITY OF MAMMOGRAPHIC ASYMMETRIES AND A | | SMALL,. TECHNIQUE: Unilateral digital CC and MLO. Shree synthesis is performed. | | CADutilized.COMPARISON: Mammograms dating back to 2013 and 2016FINDINGS: Scattered | | areas of fibroglandular density are present. The patternis stable. There are no areas | | of developing architectural distortion. Thereare no distinct masses. There are no | | suspicious clusters ofmicrocalcifications. Previously identified asymmetries in the mid | | and outerright breast are unchanged and are without evidence of focal | | architecturaldistortion or mass identified on Tomosynthesis imaging.Shree images | | demonstrate no suspicious mass or architectural distortion. Imageswere reviewed with | | CAD.ULTRASOUND RIGHT BREAST: Radial and antiradial images were obtained of the | | rightbreast which demonstrated no focal abnormality. Previously seen 2 mm cyst and3.5 mm | | ovoid probably benign mass were not identified. No suspicious | | pathologyidentified.IMPRESSION -BI-RADS CATEGORY 2: BENIGN FINDINGSRECOMMENDATION: | | Normal annual screening interval.Dictated and Signed by: Geremias Gutierres MD | | Electronically signed: 03/05/2016 2:49 PM | |Shree images demonstrate no suspicious mass or architectural distortion. Images | |were reviewed with CAD. | | | |ULTRASOUND RIGHT BREAST: Radial and antiradial images were obtained of the right | |breast which demonstrated no focal abnormality. Previously seen 2 mm cyst and | |3.5 mm ovoid probably benign mass were not identified. No suspicious pathology | |identified. | | | |IMPRESSION - | | | |BI-RADS CATEGORY 2: BENIGN FINDINGS | | | |RECOMMENDATION: Normal annual screening interval. | | | |Dictated and Signed by: Geremias Gutierres MD | | Electronically signed: 03/05/2016 2:49 PM | + + + +---------+ + + | Performing | Address | City/State/Zipcode | Phone Number | | Organization | | | | + +---------+ + + | [facility] | | | | + +---------+ + + documented in this encounter Visit Diagnoses + + | Diagnosis | + + | Mass of breast, right - Primary Lump or mass in breast | + + documented in this encounter"
--- OUTSIDE RECORDS SUMMARY | ~2019-10-19 | XMS | Encounter Summary ---
Demographics + + + | Address | [address] | | | [place] [address] | + + + | Home Phone | | + + + | Preferred Language | Unknown | + + + | Marital Status | | + + + | Holiness Affiliation | Unknown | + + + | Race | White | + + + | Ethnic Group | Not or | + + + Author + + + | Author | [facility] | | | and [place] | + + + | Organization | [facility] | | | and [place] | + + + | Address | Unknown | + + + | Phone | Unavailable | + + + Support + + + + + | Name | Relationship | Address | Phone | + + + + + | Poncho Oquendo | ECON | [address] | | | | | [place] | | | | | [address] | | + + + + + | Marta Upton | ECON | [place] | | | | | [address] | | + + + + + Care Team Providers + +------+ + | Care Mail Reader Name | Role | Phone | + +------+ + | Valeriy Carmona DO | PCP | | + +------+ + Reason for Visit +--------+--------+ + | Reason | Onset | Comments | | | Date | | +--------+--------+ + | Other | 05/19/ | | | | 2017 | | +--------+--------+ + Encounter Details +--------+ + + + + | Date | Type | Department | Care Team | Description | +--------+ + + + + | 05/19/ | Telephone | [facility] | Reinaldo, | Other | | 2018 | | MED CTR MEDICAL | Epifanio Soler MD [address] | | | | | [facility] CLINIC [facility] | [facility] | | | | | [address] | [address], [place] | | | | | [place] [address] | [address] | | | | | [phone] | | | +--------+ + + + [...] encounter Miscellaneous Notes Telephone Encounter - Rukhsana Vance RN - 05/19/2017 9:45 AM PDTReturn call to Diane landry, let her know Dr. Robles's recommendation of emergency room evaluation and treatment. Zachariah whiting verbalizes understanding, states she will go in to ER at [facility]. Electronical ly signed by Rukhsana Vance RN at 05/19/2017 9:46 AM PDTTelephone Encounter - Vladimir Robles MD - 05/19/2017 9:43 AM PDTSounds like she would be best served to go into the e mergency room for evaluation and treatment.Electronically signed by Vladimir Robles MD at 0 05/19/2017 9:43 AM PDTTelephone Encounter - Rukhsana Vance RN - 05/19/2017 9:30 AM P DTReturned call to Aura, she reports middle abdominal pain increasing over the last week, last night up to 10/. Pain medication not helping. Nausea started 0100 this am, states zachariah e vomited a lot after that. States intermittent nausea and heartburn have been going on for the last week or more. Last pain medication 0745 today 20mg oxycodone quick release and 20m g of long acting oxycodone, pain level still quite high. Denies fever, denies diarrhea, stat es she doesn't have many bowel movements but hasn't been eating much due to nausea and heart burn issues, and was able to have a small bowel movement this morning. Please advise. Electr onically signed by Rukhsana Vance RN at 05/19/2017 9:35 AM PDTTelephone Encounter - Vicky Dent - 05/19/2017 9:25 AM PDTMaureen called stating that she is in distress, vomit ing, severe abdominal pain, pain meds. aren't helping. Please return call to advise, sylvie king. documented in this encou nter Plan of Treatment +--------+---------+ + + + | Date | Type | Specialty | Care Team | Description | +--------+---------+ + + + | 10/29/ | Office | Urology | Pedro Green, | | | 2019 | Visit | | DO [address] | | | | | | [place] [address] | | | | | | [phone] | | | | | | | | +--------+---------+ + + + documented as of this encounter Visit Diagnoses Not on filedocumented in this encounter"
--- OUTSIDE RECORDS SUMMARY | ~2019-10-19 | XMS | Encounter Summary ---
Demographics + + + | Address | [address] | | | [place] [address] | + + + | Home Phone [...] | Author | [facility] | | | and [place] | + + + | Organization | [facility] | | | and [place] | + + + | Address | Unknown | + + + | Phone | Unavailable | + + + Support + + + + + | Name | Relationship | Address | Phone | + + + + + | Poncho Oquendo | ECON | [address] | | | | | [place] | | | | | [address] | | + + + + + | Marta Upton | ECON | [place] | | | | | [address] | | + + + + + Care Team Providers + +------+ + | Care Manager Creative Services Name | Role | Phone | + [...] | | | | | mass | [place], [employer] | | | | | | Procedures | [address] | | | | | | CT Chest | ST [place] | | | | | | Abdomen | [place], [place] | | | | | | Pelvis w | [address] | | | | | | [address] | Phone: | | | | | | Abdomen | [phone] | | | | | | Pelvis w | Fax: | | | | | | Contrast | [phone] | | +--------+--------+ + + + + Encounter Details +--------+ + + + + | Date | Type | Department | Care Team | Description | +--------+ + + + + | 05/22/ | Hospital | [facility] | Latoya Holt | Ovarian mass | | 2015 | Encounter | MED CTR [address] | [place], [address] | | | | | [place], | [address] [place] | | | | | [place] [address] | [place] [address] | | | | | [phone] | [phone] | | | | | | | [...] [address] | | | | | | [place] [address] | | | | | | [phone] | | | | | | | [...] -------+ | CT CHEST | [facility] | | ABDOMEN PELVIS W CONTRAST . [...] | | | administration of 100 mL [id number] contrast. Multiplanar | | | reformatted images [...] | | |Findings were discussed with Latoya Hlot via telephone at approximately 3:05 | | [...] intravenous administration of 100 mL | | [id number] contrast. Multiplanar reformatted images created.RADIATION DOSE: DLP [...] the gallbladder fossa.Findings were discussed with Latoya Jonathon via | | telephone at approximately 3:05PM [...]
--- OUTSIDE RECORDS SUMMARY | ~2019-10-19 | XMS | Encounter Summary ---
Demographics + + + | Address | [address] | | | [place] [address] | + + + | Home Phone [...] | Author | [facility] | | | and [place] | + + + | Organization | [facility] | | | and [place] | + + + | Address | Unknown | + + + | Phone | Unavailable | + + + Support + + + + + | Name | Relationship | Address | Phone | + + + + + | Poncho Oquendo | ECON | [address] | | | | | [place] | | | | | [address] | | + + + + + | Marta Upton | ECON | [place] | | | | | [address] | | + + + + + Care Team Providers + +------+ + | Care Ribbing Machine Operator Name | Role | Phone | + +------+ + | Valeriy Carmona DO | TAWNYA | | + +------+ + Encounter Details +--------+ + + + + | Date | Type | Department | Care Team | Description | +--------+ + + + + | 08/27/ | Hospital | [facility] | Valeriy Carmona, | Breast nodule | | 2016 | Encounter | MED CTR MAMMOGRAPHY | DO [address] | | | | | [address] | [facility] [place] [address] | | | | | [place] | [phone] | | | | | [address] | | | | | | [phone] | [address] | | +--------+ [...] 2020 | Visit | | DO [address] | | | | | | [place] [address] | | | | | | [phone] | | | | | | | [...]
--- OUTSIDE RECORDS SUMMARY | ~2019-10-19 | XMS | Encounter Summary ---
Demographics + + + | Address | [address] | | | [place] [address] | + + + | Home Phone [...] Team Providers + +------+ + | Care Honey Grader And Blender Name | Role | Phone | + +------+ + | Valeriy Carmona MD | PCP | | + +------+ + Encounter Details +--------+ + + + + | Date | Type | Department | Care Team | Description | +--------+ + + + + | 04/07/ | Telephone | Digestive Health | Tai Stanton, | | | 2012 | | Center at [facility] [address] | [address] | | | | | [address] [facility] | [facility] | | | | | for Health and | [place], [place] | | | | | [facility] [place] [address] | [address] | | | | | [place], [place] | [phone] | | | | | [address] | | | | | | [phone] | | | +--------+ + + + [...] encounter Miscellaneous Notes Telephone Encounter - Epifanio Trujillo - 04/07/2012 1:17 PM PSTPatient called in to check sta tis on her referral. PAS shared information from medicaid service coordinator that referral was in process and patient would be called as soon as possible. documented in this encounter Plan of Treatment Not on filedocumented as of this encounter Visit Diagnoses Not on filedocumented in this encounter"
--- OUTSIDE RECORDS SUMMARY | ~2019-10-19 | XMS | Encounter Summary ---
Demographics + + + | Address | [address] | | | [place] [address] | + + + | Home Phone | | + + + | Preferred Language | Unknown | + + + | Marital Status | Single | + + + | Church Affiliation | NON | + + + [...] Providers + +------+ + | Care Auto Service Dispatcher Name | Role | Phone | + +------+ + | Valeriy Carmona MD | PCP | | + +------+ + Encounter Details +--------+ + + + + | Date | Type | Department | Care Team | Description | +--------+ + + + + | 04/07/ | Telephone | Digestive Health | Tai Stanton, | | | 2012 | | Center at [facility] [address] | [address] [facility] | | | | | [address] [facility] | [facility] | | | | | for Health and | [place], [place] | | | | | [address] [place], [place] [address] | [address] | | | | | [place], [place] | [phone] | | | | | [address] | | | | | | [phone] | | | +--------+ + + + [...] on her referral. PAS shared information from campus wellness coordinator that referral was in process and patient would be called as soon as possible. documented in this encounter Plan of Treatment Not on filedocumented as of this encounter Visit Diagnoses Not on filedocumented in this encounter"
--- OUTSIDE RECORDS SUMMARY | ~2019-10-19 | XMS | Encounter Summary ---
Demographics + + + | Address | [address] | | | [place] [address] | + + + | Home Phone | | + + + | Preferred Language | Unknown | + + + | Marital Status | | + + + | Buddhist Affiliation | Unknown | + + + | Race | White | + + + | Ethnic Group | Not or | + + + Author + + + | Author | [facility] | | | and [place] | + + + | Organization | [facility] | | | and [place] | + + + | Address | Unknown | + + + | Phone | Unavailable | + + + Support + + + + + | Name | Relationship | Address | Phone | + + + + + | Poncho Oquendo | ECON | [address] | | | | | [place] | | | | | [address] | | + + + + + | Marta Upton | ECON | [place] | | | | | [address] | | + + + + + Care Team Providers + +------+ + | Care Technical Service Specialist Name | Role | Phone | [...] | (HCC) | [place] | [place] [address] | | | | | Procedures | [address] | Phone: | | | | | [place] | [place], | [phone] | | | | | [place] | [place] [address] | Fax: | | | | | HCL | Phone: | [phone] | | | | | INJECTION, 1 | [phone] | | | | | | MG RI | Fax: | | | | | | FOSAPREPITAN | [phone] | | | | | | T INJECTION, | | | | | | | 1 MG RI | | | | | | | LORAZEPAM | | | | | | | INJECTION, 2 | | | | | | | MG RI | | | | | | | CISPLATIN 10 | | | | | | | MG | | | | | | | INJECTION | | | | | | | RI | | | | | | | GEMCITABINE | | | | | | | HCL | | | | | | | INJECTION, | | | | | | | 200 MG RI | | | | | | | DIPHENHYDRAM | | | | | | | INE HCL | | | | | | | INJECTIO, 50 | | | | | | | MG RI | | | | | | | METHYLPREDNI | | | | | | | SOLONE | | | | | | | INJECTION, | | | | | | | 125 MG RI | | | | | | | DEXAMETHASON | | | | | | | E SODIUM | | | | | | | PHOS, 1 MG | | | | | | | RI NORMAL | | | | | | [...] | | | | | | 1000[address] [place] | | | | | | [...] + + | 10/31/ | Hospital | [facility] | Reinaldo, | Gallbladder cancer, | | 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
Documentation filed: [place] Treatment PlanningElectr onically signed by Marcelina Johnson [...] 2019 | Visit | | DO [address] | | | | | | [place] [address] | | | | | | [phone] | | | | | | | [...] [address] | [place] | [phone] | | [facility] | | [address] | | | - LABORATORY | | [...] Dr, | | | | | | [place] [address] | | | | + + + [...] [address] | [place] [address] | [phone] | + + + + + [place] [...] + | [facility] | [address] | [place] | [phone] | | [facility] | | [address] | | | - LABORATORY | | [...] | AMYLASE, AMMONIA, CPK, | | [facility] | | | | IRON, K+, LDH, [...] [address] | [place] | [phone] | | [facility] | | [address] | | | - LABORATORY | | [...] 9 | 7 - 18 mg/dL | [facility] | | | | | | [facility] | | | | | | MEDICAL | | | | | | CENTER - | | | | | | LABORATORY | | + + + + + + | Creatinine | 0.76 | 0.60 - 1.30 | [facility] | | | | | mg/dL | [facility] | | | | | | MEDICAL | | | | | | CENTER - | | | | | | LABORATORY | | + + + + + + | eGFR, | >60Comment: GLOMERULAR | >=60 | [facility] | | | non- | FILTRATION | mL/min/1.73m2 | [facility] | | | [place] | RATE,ESTIMATED | | MEDICAL | | | | mL/min/1.25e3Wtiq than | | CENTER - | | [...] [address] | [place] | [phone] | | [facility] | | [address] | | | - LABORATORY | | [...] [address] | [place] | [phone] | | [facility] | | [address] | | | - LABORATORY | | [...] | | | over 1 Hours, ONCE, [facility] 10/31/14 | | | | | | [...] | | | over 20 Minutes, ONCE, [facility] | | | | | | | [...] | | | | | Minutes, ONCE, [facility] 10/31/14 at | | | | | | | 1015, For 1 dose, Administer | | | | | | | prior to chemotherapy., | | | | | | + +---------+ +---+-------+---+ +---+---+ | | | +---+---+ documented in this encounter"
--- OUTSIDE RECORDS SUMMARY | ~2019-10-19 | XMS | Encounter Summary ---
Demographics + + + | Address | [address] | | | [place] [address] | + + + | Home Phone | | + + + | Preferred Language | Unknown | + + + | Marital Status | | + + + | Baptist Affiliation | Unknown | + + + [...] + | Poncho Oquendo | ECON | [address] | | | | | [place] | | | | | [address] | | + + + + + | Marta Upton | ECON | [place] | | | | | [address] | | + + + + + Care Team Providers + +------+ + | Care Box Tender Name | Role | Phone | + +------+ + | Valeriy Carmona DO | TAWNYA | | + +------+ + Encounter Details +--------+ + + + + | Date | Type | Department | Care Team | Description | +--------+ + + + + | 07/05/ | Hospital | [facility] | Pedro Green, | | | 2019 | Encounter | [facility] | DO [address] | | | | | [address] | [place] [address] | | | | | [place], [place] | [phone] | | | | | [address] | | | | | | [phone] | | | +--------+ + + + [...] Progress Note by Erika Lorenzana RN at 07/05/18 1541 Author: Erika Lorenzana RN Service: (none) Author Type: Registered Nurse Filed: 07/05/18 1543 Date of Service: 07/05/18 154 Status: Signed Print Production Manager: Erika Lorenzana RN (Registered Nurse) Discharge instructions, including signs [...] 3:43 PM docume nted in this encounter H&P Notes Pedro Green DO - 07/05/2018 1:19 PM PDTFormatting of this note might be different fr om the original. Interval H&P Note by Pedro Green DO at 07/05/18 1316 Author: Pedro Green DO Service: Urology Author Type: Physician Filed: 07/05/18 1320 Date of Service: 07/05/18 1319 Status: Signed Print Production Manager: Pedro Green DO (Physician) Located Within [facility] Service: Urology Pre-Operative History & Physical Interval Update There have been no significant clinical changes since the completion of the above H&P. Tod ays physical assessment showed HP update PE: Normal appearance, alert and oriented X3 and r espiratory effort normal Pedro Green DO 07/05/2018 *CORE MEASURES REMINDER: If the patient has a known or suspected infection prior to surger y, please add diagnosis to the problem list (consider: Infection 136.9). Source Note Author: Pedro Green DO Service: (none) Author Type: Physician Filed: 06/08/1804 Date of Service: 06/08/18729 Status: Signed Print Production Manager: Pedro Green DO (Physician) [facility] Urology Primary Care Provider: No primary care provider on file. History Obtained From: patient Primary Care Physician: No primary care provider on file. CHIEF COMPLAINT: Establishing Care for Hydronephrosis obstruction Chief Complaint Patient presents with Establish Care Establishing Care for Hydronephrosis with renal and ureteral calculous obstruction HISTORY OF PRESENT ILLNESS INTERVAL: 06/08/2018 - Dr Pedro Green DO [...] well. Her last excha nge was at [facility] during a septic episode. Her last CT showed remission. She notes occasional hematuria. She denies stone disease. She denies smoking history. She denies family Hx of malignancy. History: Past Medical History Diagnosis Date Gallbladder carcinoma (HCC) History reviewed. No pertinent surgical history. History reviewed. No pertinent family history. Social History Social History Marital status: Other Spouse name: N/A Number of children: N/A Years of education: N/A Social History Main Topics Smoking status: Never Smoker Smokeless tobacco: Never Used Alcohol use No Drug use: No Sexual activity: Not Currently Other Topics Concern None Social History Narrative None Allergies: Allergies Allergen Reactions Sulfacetamide Hives Medications: Current Outpatient Prescriptions Medication Sig Dispense Refill acetaminophen (TYLENOL) 500 MG tablet Take 500 mg by mouth. dexamethasone (DECADRON) 4 MG tablet Twice daily po for two days after chemotherapy sary atment. docusate calcium (SURFAK) 240 MG capsule Take 240 mg by mouth. ferrous sulfate, 65 FE, 325 (65 FE) MG tablet Take 325 mg by mouth. GRANIX 300 MCG/0.5ML injection HYDROmorphone (DILAUDID) 2 MG tablet Take 4-6 mg by mouth. Hydromorphone HCl 1 MG/ML LIQD TK 5ML PO Q 3 H PRN P 0 LORazepam (ATIVAN) 1 MG tablet take 1 tablet by mouth every 4 hours if needed FOR NAUSE A, ANXIETY OR RESTLESSNESS LORazepam (ATIVAN) 2 MG tablet take 1/2 to 1 tablet by mouth every 4 hours if needed fo r pain 0 ondansetron (ZOFRAN-ODT) 8 MG disintegrating tablet OxyCODONE (OXYCONTIN) 20 MG 12 hr tablet Take 40 mg by mouth. polyethylene glycol (GLYCOLAX) packet Take 17 g by mouth. promethazine (PHENERGAN) 25 MG tablet No current facility-administered medications for this visit. REVIEW OF SYSTEMS Review of Systems Constitutional: Negative for fever and weight loss. Eyes: Negative for blurred vision. Respiratory: Negative for shortness of breath. Cardiovascular: Negative for chest pain. Gastrointestinal: Negative for nausea and vomiting. Genitourinary: Negative for dysuria, flank pain, frequency, hematuria and urgency. Musculoskeletal: Negative for myalgias. Skin: Negative for rash. Neurological: Negative for dizziness, focal weakness and headaches. Endo/Heme/Allergies: Bruises/bleeds easily. Psychiatric/Behavioral: Positive for depression. PHYSICAL EXAM Vital Signs: BP 107/66 | Pulse 76 | Temp 97.8 F (36.6 C) (Oral) | Resp 20 | Ht 1.6 m (5' 3") | Wt 60.9 kg (134 lb 3.2 oz) | SpO2 100% | BMI 23.77 kg/m Physical Exam Constitutional: She is oriented to person, place, and time. She appears well-developed and well-nourished. HENT: Head: Normocephalic and atraumatic. Eyes: Conjunctivae are normal. Neck: Normal range of motion. Cardiovascular: Normal rate. Pulmonary/Chest: Effort normal. Abdomina/Gl: Soft. Genitourinary: Genitourinary Comments: No CVA or SP pain Musculoskeletal: Normal range of motion. Neurological: She is alert and oriented to person, place, and time. Skin: Skin is warm and dry. Psychiatric: She has a normal mood and affect. Her behavior is normal. DATA No results found for: TESTOSTERONE CBC: No results found for: WBC, RBC, HGB, HCT, MCV, MCH, MCHC, RDW, PLT, MPV, DIFFTYPE CMP: No results found for: NA, K, CL, CO2, ANIONGAP, GLUF, BUN, CREATININE, BCR, CA, PROT, ALB, GLOB, AGRATIO, BILITOT, ALP, AST, ALT, EGFR BMP: No results found for: NA, K, CL, CO2, ANIONGAP, GLUF, BUN, CREATININE, BCR, CA, EGFR BUN/Creatinine: No results found for: BUN, CREATININE LDH: No results found for: LDH U/A: No results found for: COLORU, CLARITYU, MEROPENEM, LEUKOCYTESUR, NITRITE, UROBILINOGE N, UPRO, PHUR, BLOODU, KETONES, BILIRUBINUR, GLUCOSEU, EPIS HgBA1c: No results found for: HGBA1C, LABGLYC ASSESSMENT & PLAN ICD-10-CM 1. Other hydronephrosis N13.39 2. 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 At this poin t, the patient's history is consistent with ureteral obstruction from extrinsic compression. Her main 2 procedural options include percutaneous nephrostomy tube placement, which would involve percutaneous tube through the renal collecting system to decompress the kidney versu s retrograde ureteral stent placement. We discussed the nuances of each of these proposals a nd the various risks. She has tolerated her previous stent well. It is due for exchange as it has been in place for over 6 months. After a long discussion of these risks and benefits including the risk of anesthesia, the p atient has elected to proceed with stent placement. Consent will be obtained. We will plan f or urgent left ureteral stent placement as reported. Thank you for allowing me to participate in the care of this patient. Pedro Green DO 06/08/2018 Pedro Hanley D O - 06/08/2018 7:30 AM PDT H&P (View-Only) by Pedro Green DO at 06/08/18729 Author: Pedro Green DO Service: (none) Author Type: Physician Filed: 06/08/1804 Date of Service: 06/08/18729 Status: Signed Print Production Manager: Pedro Green DO (Physician) [facility] Urology Primary Care Provider: No primary care provider on file. History Obtained From: patient Primary Care Physician: No primary care provider on file. CHIEF COMPLAINT: Establishing Care for Hydronephrosis obstruction Chief Complaint Patient presents with Establish Care Establishing Care for Hydronephrosis with renal and ureteral calculous obstruction HISTORY OF PRESENT ILLNESS INTERVAL: 06/08/2018 - Dr Pedro Green DO [...] well. Her last excha nge was at [facility] during a septic episode. Her last CT showed remission. She notes occasional hematuria. She denies stone disease. She denies smoking history. She denies family Hx of malignancy. History: Past Medical History Diagnosis Date Gallbladder carcinoma (HCC) History reviewed. No pertinent surgical history. History reviewed. No pertinent family history. Social History Social History Marital status: Other Spouse name: N/A Number of children: N/A Years of education: N/A Social History Main Topics Smoking status: Never Smoker Smokeless tobacco: Never Used Alcohol use No Drug use: No Sexual activity: Not Currently Other Topics Concern None Social History Narrative None Allergies: Allergies Allergen Reactions Sulfacetamide Hives Medications: Current Outpatient Prescriptions Medication Sig Dispense Refill acetaminophen (TYLENOL) 500 MG tablet Take 500 mg by mouth. dexamethasone (DECADRON) 4 MG tablet Twice daily po for two days after chemotherapy sary atment. docusate calcium (SURFAK) 240 MG capsule Take 240 mg by mouth. ferrous sulfate, 65 FE, 325 (65 FE) MG tablet Take 325 mg by mouth. GRANIX 300 MCG/0.5ML injection HYDROmorphone (DILAUDID) 2 MG tablet Take 4-6 mg by mouth. Hydromorphone HCl 1 MG/ML LIQD TK 5ML PO Q 3 H PRN P 0 LORazepam (ATIVAN) 1 MG tablet take 1 tablet by mouth every 4 hours if needed FOR NAUSE A, ANXIETY OR RESTLESSNESS LORazepam (ATIVAN) 2 MG tablet take 1/2 to 1 tablet by mouth every 4 hours if needed fo r pain 0 ondansetron (ZOFRAN-ODT) 8 MG disintegrating tablet OxyCODONE (OXYCONTIN) 20 MG 12 hr tablet Take 40 mg by mouth. polyethylene glycol (GLYCOLAX) packet Take 17 g by mouth. promethazine (PHENERGAN) 25 MG tablet No current facility-administered medications for this visit. REVIEW OF SYSTEMS Review of Systems Constitutional: Negative for fever and weight loss. Eyes: Negative for blurred vision. Respiratory: Negative for shortness of breath. Cardiovascular: Negative for chest pain. Gastrointestinal: Negative for nausea and vomiting. Genitourinary: Negative for dysuria, flank pain, frequency, hematuria and urgency. Musculoskeletal: Negative for myalgias. Skin: Negative for rash. Neurological: Negative for dizziness, focal weakness and headaches. Endo/Heme/Allergies: Bruises/bleeds easily. Psychiatric/Behavioral: Positive for depression. PHYSICAL EXAM Vital Signs: BP 107/66 | Pulse 76 | Temp 97.8 F (36.6 C) (Oral) | Resp 20 | Ht 1.6 m (5' 3") | Wt 60.9 kg (134 lb 3.2 oz) | SpO2 100% | BMI 23.77 kg/m Physical Exam Constitutional: She is oriented to person, place, and time. She appears well-developed and well-nourished. HENT: Head: Normocephalic and atraumatic. Eyes: Conjunctivae are normal. Neck: Normal range of motion. Cardiovascular: Normal rate. Pulmonary/Chest: Effort normal. Abdomina/Gl: Soft. Genitourinary: Genitourinary Comments: No CVA or SP pain Musculoskeletal: Normal range of motion. Neurological: She is alert and oriented to person, place, and time. Skin: Skin is warm and dry. Psychiatric: She has a normal mood and affect. Her behavior is normal. DATA No results found for: TESTOSTERONE CBC: No results found for: WBC, RBC, HGB, HCT, MCV, MCH, MCHC, RDW, PLT, MPV, DIFFTYPE CMP: No results found for: NA, K, CL, CO2, ANIONGAP, GLUF, BUN, CREATININE, BCR, CA, PROT, ALB, GLOB, AGRATIO, BILITOT, ALP, AST, ALT, EGFR BMP: No results found for: NA, K, CL, CO2, ANIONGAP, GLUF, BUN, CREATININE, BCR, CA, EGFR BUN/Creatinine: No results found for: BUN, CREATININE LDH: No results found for: LDH U/A: No results found for: COLORU, CLARITYU, MEROPENEM, LEUKOCYTESUR, NITRITE, UROBILINOGE N, UPRO, PHUR, BLOODU, KETONES, BILIRUBINUR, GLUCOSEU, EPIS HgBA1c: No results found for: HGBA1C, LABGLYC ASSESSMENT & PLAN ICD-10-CM 1. Other hydronephrosis N13.39 2. 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 At this poin t, the patient's history is consistent with ureteral obstruction from extrinsic compression. Her main 2 procedural options include percutaneous nephrostomy tube placement, which would involve percutaneous tube through the renal collecting system to decompress the kidney versu s retrograde ureteral stent placement. We discussed the nuances of each of these proposals a nd the various risks. She has tolerated her previous stent well. It is due for exchange as it has been in place for over 6 months. After a long discussion of these risks and benefits including the risk of anesthesia, the p atient has elected to proceed with stent placement. Consent will be obtained. We will plan f or urgent left ureteral stent placement as reported. Thank you for allowing me to participate in the care of this patient. Pedro Green DO 06/08/2018 documented in this encounter Miscellaneous Notes Op Note - Pedro Green DO - 07/05/2018 2:22 PM PDTFormatting of this note might be di fferent from the original. Op Note by Pedro Green DO at 07/05/18 1428 Author: Pedro Green DO Service: Urology Author Type: Physician Filed: 07/06/18 0957 Date of Service: 07/05/181421 Status: Signed Print Production Manager: Pedro Green DO (Physician) Related Notes: Original Note by Pedro Green DO (Physician) filed at 07/05/18 9567 Located Within [facility] Service: Urology Operative Note Pre-operative Diagnosis: Indwelling stent, history of biliary cancer Post-operative Diagnosis: Same Procedure(s): Cystoscopy, complicated left stent removal, left retrograde pyelogram, left ureteral stent placement Surgeon: Pedro Green DO Cork Wirer(s): NA Anesthesia: General LMA Estimated Blood Loss: 0 Other: Not applicable Indications: See pre-operative history and physical. Findings: See dictation Complications: None Description of Procedure: After informed consent was obtained from the patient, the patient was brought back to the o perative suite and placed on the operating room table. After general anesthetic was adminis tered and achieved, she was prepped and draped in sterile fashion in the dorsal lithotomy po sition. Following a preoperative pause, the 21.5-[place] cystoscopic sheath with 30 degree l ens was inserted transurethrally under direct visualization. Upon entering bladder, panendo scopy performed consistent with a normal bladder except for encrusted stent emanating from t he left ureteral orifice at this point. The encrusted stent was grasped and withdrawn throu gh the urethral meatus, there was a little bit of resistance as well as concern for continue d obstruction at this point. To the left of meatus scope was inserted adjacent to this and used to visualize ureteral orifice. This was cannulated with ureteral catheter and retrogra de pyelogram was performed confirming stenotic portions of the distal ureter at this point. Hydrophilic wire was placed through the ureteral catheter into the ureter and it was met wi th resistance again near the pelvic brim where the previous obstruction was presumably at. At this point the stent was manipulated a little bit more with another enter to out of the p atient, the ureteral catheter was again manipulated into a different position within the ure ter and able to be used to guide placement of the wire past the obstructive portion up to re nal collecting system. With the wire now in place, the stent was manipulated rest of the wa y out in spite of resistance was able to be removed intact, was passed off the backfield for analysis at this point. With the wire in place, ureteral catheter was placed over top of w adtiya up to the renal collecting system and another retrograde pyelogram was performed confirm ing proximal hydronephrosis, also confirming that the wire had been in good position. The w aditya was then replaced, catheter was removed. Next, the previous catheter was again examined with a 7-[place] x 24 cm ureteral stent. Given the patient's comfort level with this, we de cided to proceed with this again and finally a 7-[place] x 24 cm ureteral catheter was placed over the top of wire and it coiled nicely proximally and distally upon removal of the wire and was left in place without strings attached. Bladder was drained, scope was removed and the patient was transferred back to recovery in stable condition. She tolerated the procedu re well. Condition: Stable Pedro Green DO 07/05/2018 documented in this encounter Plan of Treatment +--------+---------+ + + + | Date | Type | Specialty | Care Team | Description | +--------+---------+ + + + | 10/29/ | Office | Urology | Pedro Green, | | | 2019 | Visit | | DO [address] | | | | | | [place] [address] | | | | | | [phone] | | | | | | | [...]
--- OUTSIDE RECORDS SUMMARY | ~2019-10-19 | XMS | Encounter Summary ---
Demographics + + + | Address | [address] | | | [place] [address] | + + + | Home Phone | | + + + | Preferred Language | Unknown | + + + | Marital Status | Single | + + + | Spiritism Affiliation | NON | + + + | Race | White | + + + | Ethnic Group | Not or | + + + Author + + + | Author | [facility] | + + + | Organization | [facility] | + + + | Address [...] Team Providers + +------+ + | Care Cyber Workforce Developer And Manager Name | Role | Phone | [...] Refill Request | | 2013 | | [place] [address] | [address] | | | | | [facility] [facility] | [facility] | | | | | [facility] and | [place], [place] | | | | | [facility] [address] | [address] | | | | | [place], [place] | [phone] | | | | | [address] | | | | | | [phone] | | | +--------+ + + + [...] been sent to [facility]. Rn's contact information provided if further questions [...] your pain scale: Neuropathic Pain Can you sheepskin pickler the script if need to or should it be mailed?: Mail Patient informed there is a 72 hour refill policy. Is it alright to leave a detailed message? Yes Pharmacy: Pharmacy Preferences: [facility] documented in this encou nter Plan of Treatment Not on filedocumented as of this encounter Visit Diagnoses Not on filedocumented in this encounter"
--- OUTSIDE RECORDS SUMMARY | ~2019-10-19 | XMS | Encounter Summary ---
Demographics + + + | Address | [address] | | | [place] [address] | + + + | Home Phone | | + + + | Preferred Language | Unknown | + + + | Marital Status | Single | + + + | Baptist Affiliation | NON | + + + [...] Team Providers + +------+ + | Care Drum Builder Name | Role | Phone | [...] Center at [facility] [address] | [address] [facility] | | | | | [facility] | [facility] | | | | | for Health and | [place], [place] | | | | | [facility], [place] [address] | [address] | | | | | [place], [place] | [phone] | | | | | [address] | | | | | | [phone] | | | +--------+ + + + [...] 02/23 Please call back to discuss at [phone] signed by Willie Alva at 09/25 9:48 AM PDTdocumented in this encounter Plan of Treatment Not on filedocumented as of this encounter Visit Diagnoses + + | Diagnosis | + + | Gallbladder cancer (HCC) - Primary Malignant neoplasm of gallbladder | + + | Inflammation of operative incision | + + documented in this encounter
--- OUTSIDE RECORDS SUMMARY | ~2019-10-19 | XMS | Encounter Summary ---
Demographics + + + | Address | [address] | | | [place] [address] | + + + | Home Phone | | + + + | Preferred Language | Unknown | + + + | Marital Status | | + + + | Spiritism Affiliation | Unknown | + + + | Race | White | + + + | Ethnic Group | Not or | + + + Author + + + | Author | [facility] | | | and [place] | + + + | Organization | [facility] | | | and [place] | + + + | Address | Unknown | + + + | Phone | Unavailable | + + + Support + + + + + | Name | Relationship | Address | Phone | + + + + + | Poncho Oquendo | ECON | [address] | | | | | [place] | | | | | [address] | | + + + + + | Marta Upton | ECON | [place] | | | | | [address] | | + + + + + Care Team Providers + +------+ + | Care Technical Specialist Cytogenetics Name | Role | Phone | + +------+ + | Valeriy Carmona DO | PCP | | + +------+ + Reason for Visit +--------+--------+ + | Reason | Onset | Comments | | | Date | | +--------+--------+ + | Other | 12/09/ | | | | 2014 | | +--------+--------+ + Encounter Details +--------+ + + + + | Date | Type | Department | Care Team | Description | +--------+ + + + + | 12/09/ | Telephone | [facility] | Reinaldo, | Other | | 2014 | | [facility] | Epifanio Soler MD [address] | | | | | [facility] [address] | [facility] | | | | | [address] | [address] [place], [place] | | | | | [place] [address] | [id number] | | | | | [phone] | | | +--------+ + + + [...] Telephone Encounter - Sonia Renae RN - 12/09/2014 12:32 PM PDTPatient notified of 's response, Remi in scheduling notified. Please call patient at [phone].Electr onically signed by Sonia Renae RN at 12/09/2014 12:35 PM PDTTelephone Encounter - Epifanio Borrero MD - 12/09/2014 10:57 AM PDTOrder placed in EPIC for CT chest/abdomen/ pelvis. Please cancel order for CT abdomen/pelvis. Please notify scheduling, imaging, and patient. elephone Encounter - Sonia Renae RN - 12/09/2014 10:20 AM PDTCall returned to patient: CT scan planned at [facility] 12/17/14. She is hoping thi s will include chest region to "cover all bases". Asking also if CT constrast could be taken by Dr. Najera on Tuesday12/11/14 to [facility] for patient to picker box operator. 10:2 7 AM PDTTelephone Encounter - Hayley Price - 12/09/2014 9:43 AM PDTuAra would like Dr Timmy Najera's nurse to give her a call. She states she has some questions for the nurse. S he can be reached on her direct work line at [phone]. documented in this encounter Plan of Treatment +--------+---------+ + + + | Date | Type | Specialty | Care Team | Description | +--------+---------+ + + + | 10/29/ | Office | Urology | Pedro Green, | | | 2019 | Visit | | DO [address] | | | | | | [place] [address] | | | | | | [phone] | | | | | | | | +--------+---------+ + + + documented as of this encounter Visit Diagnoses Not on filedocumented in this encounter
--- OUTSIDE RECORDS SUMMARY | ~2019-10-19 | XMS | Encounter Summary ---
Demographics + + + | Address | [address] | | | [place] [address] | + + + | Home Phone | | + + + | Preferred Language | Unknown | + + + | Marital Status | | + + + | Orthodox Affiliation | Unknown | + + + | Race | White | + + + | Ethnic Group | Not or | + + + Author + + + | Author | [facility] | | | and [place] | + + + | Organization | [facility] | | | and [place] | + + + | Address | Unknown | + + + | Phone | Unavailable | + + + Support + + + + + | Name | Relationship | Address | Phone | + + + + + | Poncho Oquendo | ECON | [address] | | | | | [place] | | | | | [address] | | + + + + + | Marta Upton | ECON | [place] | | | | | [address] | | + + + + + Care Team Providers + +------+ + | Care Electrolog Operator Name | Role | Phone | [...] | Procedures | [address] | [place] [address] | | | | | [place] OFFICE | [place], | Phone: | | | | | OUTPATIENT | [place] [address] | [phone] | | | | | VISIT 25 | | Fax: | | | | | MINUTES | | [phone] | +--------+--------+ + + + + Encounter Details +--------+ + + + + | Date | Type | Department | Care Team | Description | +--------+ + + + + | 02/02/ | Hospital | [facility] | Ángela Glass | Gallbladder cancer, | | 2017 | Encounter | [facility] | Birdie, PharmD [address] | carcinoma (HCC) | | | | ONCOLOGY CLINIC [address] | [address] | (Primary Dx) | | | | [facility] | [place] [address] | | | | | [place] [address] | [phone] | | | | | [phone] | | | +--------+ + + + [...] of this encounter Progress Notes Ángela Glass, Nataly - 02/02/2017 1:50 PM PSTFormatting of this note might be differ ent from the original. Clinical Oncology Pharmacy Services Progress Note [facility] Pt. Name/Age/: Aura Upton 56 y.o. 1960 CSN: [id number] Date of service: 02/02/2017 Provider: Ángela Glass PharmD Identifying Statement: Aura Upton is a 56 y.o. female from [address] [place] [address], The encounter diagnosis was Gallbladder cancer, carcinoma [...] 2. Follow up with Dr Najera at [facility] in [place], [place]. Subjective: The patient chart and medications were [...] Imaging: No results found. 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
--- OUTSIDE RECORDS SUMMARY | ~2019-10-19 | XMS | Encounter Summary ---
Demographics + + + | Address | [address] | | | [place] [address] | + + + | Home Phone | | + + + | Preferred Language | Unknown | + + + | Marital Status | | + + + | Amish Affiliation | Unknown | + + + | Race | White | + + + | Ethnic Group | Not or | + + + Author + + + | Author | [facility] | | | and [place] | + + + | Organization | [facility] | | | and [place] | + + + | Address | Unknown | + + + | Phone | Unavailable | + + + Support + + + + + | Name | Relationship | Address | Phone | + + + + + | Poncho Oquendo | ECON | [address] | | | | | [place] | | | | | [address] | | + + + + + | Marta Upton | ECON | [place] | | | | | [address] | | + + + + + Care Team Providers + +------+ + | Care Yacht Master Name | Role | Phone | + [...] W | | | | | | [place], | | | | | | [place] [address] | | | | | | [phone] | | | +--------+ + + + [...] [address] | | | | | | [place] [address] | | | | | | [phone] | | | | | | | | +--------+---------+ + + + documented as of this encounter Visit Diagnoses Not on filedocumented in this encounter"
--- OUTSIDE RECORDS SUMMARY | ~2019-10-19 | XMS | Encounter Summary ---
Demographics + + + | Address | [address] | | | [place] [address] | + + + | Home Phone | | + + + | Preferred Language | Unknown | + + + | Marital Status | | + + + | Episcopal Affiliation | Unknown | + + + | Race | White | + + + | Ethnic Group | Not or | + + + Author + + + | Author | [facility] | | | and [place] | + + + | Organization | [facility] | | | and [place] | + + + | Address | Unknown | + + + | Phone | Unavailable | + + + Support + + + + + | Name | Relationship | Address | Phone | + + + + + | Poncho Oquendo | ECON | [address] | | | | | [place] | | | | | [address] | | + + + + + | Marta Upton | ECON | [place] | | | | | [address] | | + + + + + Care Team Providers + +------+ + | Care Conference Services Director Name | Role | Phone | [...] | | | Therapy | Malignant | Erinaldo, | Infusion [address] | | | | | neoplasm of | Epifanio Soler, | [address] [place]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 | MD [address] | [place], | | | | | (HCC) | [place] | [place] [address] | | | | | Procedures | [address] | Phone: | | | | | [place] | [place], | [phone] | | | | | DIPHENHYDRAM | [place] [address] | Fax: | | | | | INE HCL | Phone: | [phone] | | | | | INJECTIO, 50 | [phone] | | | | | | MG VA | Fax: | | | | | | ONDANSETRON | [phone] | | | | | | HCL | | | | | | | INJECTION, 1 | | | | | | | MG VA | | | | | | | DEXAMETHASON | | | | | | | E SODIUM | | | | | | | PHOS, 1 MG | | | | | | | VA | | | | | | | FOSAPREPITAN | | | | | | | T INJECTION, | | | | | | | 1 MG VA | | | | | | | LORAZEPAM | | | | | | | INJECTION, 2 | | | | | | | MG VA | | | | | | | GEMCITABINE | | | | | | | HCL | | | | | | | INJECTION, | | | | | | | 200 MG VA | | | | | | | CISPLATIN 10 | | | | | | | MG | | | | | | | INJECTION | | | | | | | VA | | | | | | | METHYLPREDNI | | | | | | | SOLONE | | | | | | | INJECTION, | | | | | | | 125 MG VA | | | | | | | ADRENALIN | | | | | | | EPINEPHRINE | | | | | | | INJECT, .1 | | | | | | | MG VA | | | | | | | FILGASTIM | | | | | | | (ZARXIO) 300 | | | | | | | MCG/0.5ML | | | | | | | SOSY, PER 1 | | | | | | | MCG VA | | | | | | | INJECTION, | | | | | | | FAMOTIDINE, | | | | | | | 20 MG VA | | | | | | | NORMAL | | | | | | | SALINE | | | | | | | SOLUTION | | | | | | | INFUS, 500 | | | | | | | ML VA | | | | | | | NORMAL | | | | | | | SALINE | | | | | | | SOLUTION | | | | | | | INFUS, 250 | | | | | | | ML VA | | | | | | | STERILE | | | | | | | WATER/SALINE | | | | | | | , 10 ML VA | | | | | | | CHEMOTHER, | | | | | | | IV PUSH,EA | | | | | | | ADD DRUG VA | | | | | | | CHEMOTHER, | | | | | | | IV INFUSION, | | | | | | | 1 HR VA | | | | | | | CHEMOTHER, | | | | | | | IV INFUSION, | | | | | | | EA HR VA | | | | | | | CHEMOTHER,NO | | | | | | | N-HORMONE | | | | | | | ANTI-NEOPL, | | | | | | | SUB-Q/IM VA | | | | | | | [...] + + | 05/20/ | Hospital | [facility] | Vladimir Robles, | Gallbladder cancer, | | 2017 | Encounter | MED CTR CHEMO | MD [address] | carcinoma (HCC) | | | | INFUSION [address] [place], | | | | | [place], | [place] [address] | | | | | [place] [address] | [phone] | | | | | [phone] | | | +--------+ + + + [...] documented as of this encounter Progress Notes Sasha Renee RN - 05/20/2017 1:23 PM PDTReports nausea resolved discharged [facility] to follow up in [place] as scheduled. documented in this encounter Miscellaneous Notes Treatment Plan - Liz Jordan RN - 05/20/2017 9:30 AM PDTViewed chart for weight, v ital signs and lab results. Also viewed chart for completion of medication and allergy revi ew prior to treatment.Liz Hurst RNDATE/TIME: 05/20/2017 9:30 documented in this encounter Plan of Treatment +--------+---------+ + + + | Date | Type | Specialty | Care Team | Description | +--------+---------+ + + + | 10/29/ | Office | Urology | Pedro Green, | | | 2019 | Visit | | DO [address] | | | | | | [place] [address] | | | | | | [phone] | | | | | | | | +--------+---------+ + + + documented as of this encounter Procedures + +--------+ + + + | Procedure Name | Priori | Date/Time | Associated Diagnosis | Comments | | | ty | | | | + +--------+ + + + | LABS - EXTERNAL SCAN | | 05/19/2017 | | Results for this | | | | 12:00 AM | | procedure are in the | | | | PDT | | results section. | + +--------+ + + + documented in this encounter Results LABS - EXTERNAL SCAN (05/19/2017 12:00 AM PDT) + + + | Narrative | Performed At | + + + | Ordered by an | | | unspecified provider. | | + + + documented in this encounter Visit Diagnoses + + | Diagnosis | + + | Gallbladder cancer, carcinoma (HCC) Malignant neoplasm of gallbladder | + + documented in this encounter Administered Medications + +---------+ +-------+--------+------+ | Medication Order | MAR | Action | Dose | Rate | Site | | | Action | Date | | | | + +---------+ +-------+--------+------+ | CISplatin (PLATINOL) 29 mg in | New Bag | 05/21/19 | 29 mg | 514.5 | | | sodium chloride 0.9% 1,000 mL | | 18 11:10 | | mL/hr | | | infusion 29 mg (rounded from | | AM PDT | | | | | 28.8 mg = 16 mg/m2 | | | | | | | 1.8 m2 Order-specific BSA), | | | | | | | Intravenous, Administer over 2 | | | | | | | Hours, ONCE, Tue05/20/17 at 1115, | | | | | | | For 1 dose, Chemotherapy: Use | | | | | | | appropriate handling precautions. | | | | | | | Vesicant. Protect from light., | | | | | | + +---------+ +-------+--------+------+ +---+---+ | | | +---+---+ + +-------+ +-------+---+---+ | diphenhydrAMINE (BENADRYL) | Given | 05/21/19 | 25 mg | | | | injection 25 mg 25 mg, | | 18 9:39 | | | | | Intravenous, ONCE, Tue05/20/17 at | | AM PDT | | | | | 1000, For 1 dose | | | | | | + +-------+ +-------+---+---+ +---+---+ | | | +---+---+ + +---------+ +--------+-------+---+ | fosaprepitant (EMEND) 150 mg in | New Bag | 05/21/19 | 150 mg | 500 | | | sodium chloride 0.9% 250 mL IVPB | | 18 9:49 | | mL/hr | | | [...] (GEMZAR) 1,100 mg | New Bag | 05/21/19 | 1,100 mg | 500 | | | in sodium chloride 0.9% 221.06 mL | | 18 10:37 | | mL/hr | | | infusion 1,100 mg, Intravenous, | | AM PDT | | | | | Administer [...] | | | | | | | refrigerate., | | | | | | + +---------+ + +-------+---+ +---+---+ | | | +---+---+ + +-------+ +-------+---+---+ | heparin 100 units/mL flush | Given | 05/21/19 | 500 | | | | injection 500 Units 500 Units (5 | | 18 1:19 | Units | | | | mL), Intracatheter, PRN, Line | | PM PDT | | | | | Care, Starting Tue05/20/17 at 0930 | | | | | | + +-------+ +-------+---+---+ +---+---+ | | | +---+---+ + +-------+ +------+---+---+ | LORazepam (ATIVAN) injection | Given | 05/21/19 | 1 mg | | | | 0.5-1 mg 0.5-1 mg, Intravenous, | | 18 12:39 | | | | | PRN, Anxiety, Nausea/Vomiting, | | PM PDT | | | | | Starting Tue05/20/17 at 1236, For | | | | | | | 1 dose, Administer prior to | | | | | | | chemotherapy., | | | | | | + +-------+ +------+---+---+ +---+---+ | | | +---+---+ + +---------+ +---+--------+---+ | ondansetron (ZOFRAN) 8 mg, | New Bag | 05/21/19 | | 217.6 | | | dexamethasone (DECADRON) 4 mg in | | 18 10:18 | | mL/hr | | | sodium chloride 0.9% 50 mL IVPB | | AM PDT | | | | | Intravenous, Administer over 15 | | | | | | | Minutes, ONCE, Tue05/20/17 at | | | | | | | 1000, For 1 dose | | | | | | + +---------+ +---+--------+---+ +---+---+ | | | +---+---+ documented in this encounter"
--- OUTSIDE RECORDS SUMMARY | ~2019-10-19 | XMS | Encounter Summary ---
Demographics + + + | Address | [address] | | | [place] [address] | + + + | Home Phone [...] Team Providers + +------+ + | Care Associate Professor Of Communication Name | Role | Phone | + +------+ + | Tomasa Wagner | PCP | | + +------+ + Encounter Details +--------+ + + + + | Date | Type | Department | Care Team | Description | +--------+ + + + + | 06/12/ | Telephone | Digestive Health | Tai Stanton, | | | 2012 | | Center at [facility] [address] | [address] | | | | | [facility] | [facility] | | | | | for Health and | [place], [place] | | | | | [facility], [place] [address] | [address] | | | | | [place], [place] | [phone] | | | | | [address] | | | | | | [phone] | | | +--------+ + + + [...] Telephone Encounter - Beth Osorio MA - 06/12/2012 3:[address] Rukhsana BOONE w/ read back @ 12:15pm :HYDROcodone-acetaminophen (NORCO) 5-325 mg Oral tablet 40 Tab 0 Ref ills Sig : Take 1 Tab by mouth every six hours as needed. Not to exceed 10 tablets per any 2 4 hour period. Pt is to continue to take her Tylenol but not to exceed the 3200 mg in a 24 h our period. She should take the gabapentin as prescribed. This will be the last refill for t he Pt. Pt was notified of above and stated understanding. Pt requested the Rx to be call into her [facility] pharmacy. Rx called into: [facility] [facility] [place] [address] elephone Encounter - Beth Osorio MA - 06/12/2012 12:08 PM PDTI spoke with the Pt. She stated that she will be out of her oxycodone on Tuesday and would like a refill or discuss possible changing to Vicodin. She is currently taking oxycodone 5 mg 1-2 tabs every 4-5 hours, Tylenol 500 mg 2 tabs every 8 hours, gabipentin 300 mg only at HS and the lidocaine patch 1 patch every 12 ho urs w/ result. She stated she is still having significant pain at her incision site and prom otes swelling on the right side of the incision. Pt fredy fever, redness and discharge from her incision site, N/V and increased pain. She is having regular BM with the assistance of daily senna. I told her that she was given a refill of the oxycodone on 05/31 with the instru ctions to take 1 tab every 6 hours and that it was to be her last refill. Pt stated that she tried to do this but was not sufficient for her pain control. I told her that I would share this with the physician and call her back with an answer. Agreed. elephone Encounter - Pilar Kc - 013 8:34 AM Desi Upton calling For refill, dinesh would also would like to disc uss possible switching to Vicodin. Patient informed there is a 72 hour refill policy. Is it alright to leave a detailed message? Yes Surgery/Procedure: Yes Surgery/Procedure Type: DIAGNOSTIC LAPAROSCOPY WITH BIOPSY, OPEN SEGMENT 4B/5 LIVER RESECTI ON, PORTAL LYMPHADENECTOMY Medication Requested: oxyCODONE, immediate release, 5 mg Oral tablet When will you run out? tomorrow How often are you taking it?: Every 5 hours What is your pain scale: 3-5 /10 Can you olive picker the script if need to or should it be mailed?: Pick-up Pharmacy: Pharmacy Preferences: [facility] [place] [address] documented in this encoun ter Plan of Treatment Not on filedocumented as of this encounter Visit Diagnoses Not on filedocumented in this encounter"
--- OUTSIDE RECORDS SUMMARY | ~2019-10-19 | XMS | Encounter Summary ---
Demographics + + + | Address | [address] | | | [place] [address] | + + + | Home Phone | | + + + | Preferred Language | Unknown | + + + | Marital Status | Single | + + + | Gnosticism Affiliation | NON | + + + [...] Team Providers + +------+ + | Care Concrete Saw Operator Name | Role | Phone | + +------+ + PCP | Unavailable | + +------+ + Encounter Details +--------+ + + + + | Date | Type | Department | Care Team | Description | +--------+ + + + + | 03/22/ | Results | | Other, Faculty | | | 2003 | Only | | [phone] | | +--------+ + + + + [...] | | | | | please call [phone] | | | | | | [phone].Rendering | | | | | | Diagnostician: Alma Delia | | | | | | Ana, PhD, AB, | | | | | | FACMGCytogeneticistElect [...] + + | Ordered by Yaw Marcelo TILE MACHINE OPERATOR | | + + + + + + + + | Performing | Address | City/State/Zipcode | Phone Number | | Organization | | | | + + + + + | [facility] | [employer] | [place] [address] | | | [facility] | [address] | | | | [address] | | | + + + + + documented in this encounter Visit Diagnoses Not on filedocumented in this encounter"
--- OUTSIDE RECORDS SUMMARY | ~2019-10-19 | XMS | Encounter Summary ---
Demographics + + + | Address | [address] | | | [place] [address] | + + + | Home Phone [...] Author + + + | Author | [facility] | + + + | Organization | [facility] | + + + | Address [...] Team Providers + +------+ + | Care Cabin Cleaner Name | Role | Phone | [...] cancer | [address] | [address] [facility] | | | | | ([facility]) [facility] | | | | | Procedures | Rd | Rd [place], | | | | | REQUEST TO | [place], [place] | [place] | | | | | SURGERY | [address] | [address] | | | | | COMPENSATION EXPERT | Phone: | Phone: | | | | | RI RESEC | [phone] | [phone] | | | | | LIVER,PART | Fax: | Fax: | | | | | LOBECTOMY | [phone] | [phone] | | | | | RI REMOVE | | | | | | | ABD LYMPH | | | | | | | NODES RAD | | | | | | | REGNL RI | | | | | | [...] | | | | CT CHEST, | [place], [place] | 10th Floor | | | | | ABDOMEN & | [address] | [place], [place] | | | | | PELVIS W IV | Phone: | [phone] | | | | | CONTRAST | [phone] | Phone: | | | | | [address], [address] | Fax: | [phone] | | | | | | [phone] | Fax: | | | | | | | [phone] | +--------+--------+ + + + + Reason [...] | | | | | cancer | [facility] | [address] | | | | | (HCC) | SURGICAL | [facility]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 | CLINIC [address] | [address] [place], | | | | | ca | [address] | [place] | | | | | | AVE | [address] | | | | | | [place], | Phone: | | | | | | [place] [address] | [phone] | | | | | | Phone: | Fax: | | | | | | [phone] | [phone] | | | | | | Fax: | | | | | | | [phone] | | +--------+--------+ + + + + Encounter Details +--------+---------+ + + + | Date | Type | Department | Care Team | Description | +--------+---------+ + + + | 04/12/ | Office | Digestive Health | Tai Stanton, | Gallbladder cancer | | 2012 | Visit | Center at [facility] [address] | [address] | (HCC) (Primary Dx) | | | | [address] | [facility] | | | | | for [facility] and | [place], [place] | | | | | [facility] 2 | [address] | | | | | [place], [place] | [phone] | | | | | [address] | | | | | | [phone] | | | +--------+---------+ + + + [...] - 04/12/2012 5:30 PM PSTPATIENT SURGERY INFORMATION [facility] General Surgery Office Toll-free: ext [phone] Surgery Date: April 28, 2012 Procedure: Segment [...] the surgery. Please see the list below, marcie nicole has a list of products that contain [...] from anyone by 7 pm please call [phone]. PARKING Parking for patients is available underneath the [facility] building. Parking is also available in the [facility] Parking structure located across from the emergency depart ment; patient parking available on level 1 and 3. Metered parking is available on the top l evel. CHECKING IN FOR SURGERY Hospital Admission (in-patient): Admitting Desk 9th floor of [facility] TRANSPORTATION Day Surgery: If you have [...] Please notify the general surgery office at [phone] as soon as possible should you nee [...] prior to your surgery. PRODUCTS CONTAINING ASPIRIN Wins[place], Anacin, Anexsia with Codeine, Andynos, Aspirin, Aspirin suppositories, Ascrip tin, Aspergum, Axotal, B-A-C, Baby Aspirin, Mahad, BC Powder, Bexophene, Buffaprin, Bufferin , Buffinol, Cama-Arthritis Strength, Congespirin, Slinger, Coricidin, Damason, Darvon, Dristan, Elen-Gesic, Digel, Dolprin #3 Tablets, Donatab, Doxaphene, Duragesic, Easprin, Ecotrin, Emag rin Forte, Emiprin, Emprazil, Equagesic, Equazine M, Excedrin, Fiogesic, Fiorgen PH, Fiorice t, Fiorinal, 4-Way Cold Tablet Gemnisyn, Indocin, Liquprin, Lortab ASA, Magnaprin, Marnal, Meprobamate, Midol, Momentum, N orgesic, Cade, Orphengesic, Pabalate, P-A-C, Percodan, Presalin, Robaxasil, Roxiprin, Cruz eto, Salocol SK-65 Compound, Sine-Aid, Sine-Off,, Solway, Supac, Talwin Compound, Trigesic, Tolectin , Traiminicin, Vanquish, ZORprin, Zomax PRODUCTS CONTAINING IBUPROFEN Advil, Aleve, Haltran, Medipren, Midol, Motrin, Naproxyn, Nuprin, Rufen OTHER PRODUCTS WHICH MAY PROMOTE BLEEDING Vitamin E, Gingko Biloba, Marine Fatty Acids, Caldwell-3 Fish Oil SupplementsElectronically si gned by Amy Dinh RN at 04/12/2012 5:31 PM PST documented in this encounter Progress Notes Tai Stanton MD - 04/18/2012 11:09 AM PSTI saw and evaluated the patient. I agree with the findings and the plan of care as documented in the resident s note. Tai Stanton M.D. [facility] ([facility]) Professor and Vice-Resident Care Assistant of Surgery [facility] for Pancreatic Disease Research Pancreatic/ HepatoBiliary and Foregut Working Groups Mail Code L223A [address] [place], [place]. [address] email: [email or web address] aMackenzie smith MD - 04/12/2012 6:05 PM PST ID: Aura Upton CC: Referral for treatment of gall-bladder cancer found post lap analy HPI: Mrs Upton is a 51yo woman w/ h/o chronic back pain who is being referred by her georgina geon at [facility] for incidental finding gallbladder mass during cholecystectomy [...] cancers Father DM, CAD SH: Lives on [facility] with , Denies tobacco use, very brief [...] Latest Range: 0.60-1.10 mg/dL 0.70 EGFR - BURUNDIAN No range found >60 EGFR NON -BURUNDIAN No range found >60 GLUCOSE, PLASMA (LAB) [...] Farr MD Chief Resident Department of Surgery [facility] documented in this en counter Procedure Notes Eli, Faculty - 04/13/2012 4:32 PM PSTAssociated Order(s): PROCEDURE NOTEElectronically s igned by Faculty Other at 04/13/2012 4:32 PM PSTdocumented in this encounter Miscellaneous Notes Scan - Eli Faculty - 05/11/2012 9:30 AM PDTElectronically signed by Faculty Other at 9:30 AM PDTdocumented in this encounter Plan of Treatment + +------+--------+ + + [...] | | + +---------+ + + | [facility] DEPARTMENT OF | | | | | [...] by | | | | | | [employer],[address] | | | | | | [address], [facility],[place] | | | | | | [address] | | | | | | [phone].[facility]. | | | | | | Lala deras, | | | | | | , [...] [facility] | [address] | [place], [place] | | | [facility] | | [address] | | + + + + + [...] | | | | | | Laboratories,[address] | | | | | | Jacob, [facility] [address] | | | | | | [phone].aruplab. | | | | | | [place], | | | | | | , [...] [facility] | [address] | [place], [place] | | | [facility] | | [address] | | + + + + + [...] | + + + + + | [facility] | [address] [facility] | [place] [address] | | | SERVICES, CORE | NEAL [...] | | | LABORATORY | | | [place] | | | SERVICES, | | | [...] | + + + + + | [facility] | [address] | [place] [address] | | | [facility] | | | | | HEALTH + HEALING | | | | + + + + + documented in this encounter Visit Diagnoses + + | Diagnosis | + + | Gallbladder cancer (HCC) - Primary Malignant neoplasm of gallbladder | + + documented in this encounter
--- OUTSIDE RECORDS SUMMARY | ~2019-10-19 | XMS | Encounter Summary ---
Demographics + + + | Address | [address] | | | [place] [address] | + + + | Home Phone | | + + + | Preferred Language | Unknown | + + + | Marital Status | | + + + | Christian Affiliation | Unknown | + + + | Race | White | + + + | Ethnic Group | Not or | + + + Author + + + | Author | [facility] | | | and [place] | + + + | Organization | [facility] | | | and [place] | + + + | Address | Unknown | + + + | Phone | Unavailable | + + + Support + + + + + | Name | Relationship | Address | Phone | + + + + + | Poncho Oquendo | ECON | [address] | | | | | [place] | | | | | [address] | | + + + + + | Marta Upton | ECON | [place] | | | | | [address] | | + + + + + Care Team Providers + +------+ + | Care Tentering Machine Off Bearer Name | Role | Phone | [...] [facility] | Epifanio Soler MD [address] | bladder (HCC) | | | | ONCOLOGY CLINIC [address] | RICARDA LINDQUIST [facility] | (Primary Dx) | | | | [address] | [address] [place], [place] | | | | | [place] [address] | [address] | | | | | [phone] | | | +--------+ + + + [...] | | | | | [place] [address] | | | | | | [phone] | | | | | | | | +--------+---------+ + + + documented as of this encounter Visit Diagnoses + + | Diagnosis | + + | 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
--- OUTSIDE RECORDS SUMMARY | ~2019-10-19 | XMS | Encounter Summary ---
Demographics + + + | Address | [address] | | | [place] [address] | + + + | Home Phone [...] Author + + + | Author | [facility] | + + + | Organization | [facility] | + + + | Address [...] Team Providers + +------+ + | Care Scientist Name | Role | Phone | + +------+ + PCP | Unavailable | + +------+ + Reason for Referral Consultation (Routine) +--------+--------+ + + + + [...] | | | | septal | [address] | [address] | | | | | defect | [address] | [address] | | | | | Procedures | [place] | | | | | CONSULT TO | [address] | [address] | | | | | ENT / FACIAL | Phone: | Phone: | | | | | PLASTIC | [phone] | [phone] | | | | | SURGERY | Fax: | Fax: | | | | | | [phone] | [phone] | +--------+--------+ + + + + Reason [...] | y | | Epic Dept | [address] | | | | | [address] | | | | | | | [facility] | | [facility] | | [facility] and | | | | | | | Healing, | | | | | | | Building [address], | | | | | | | 5th Floor | | | | | | | [facility] [place] | | | | | | | [address] | | | | | | | Phone: | | | | | | | [phone] | | | | | | | Fax: | | | | | | | [phone] | +--------+--------+ + + + + Encounter Details +--------+---------+ + + + | Date | Type | Department | Care Team | Description | +--------+---------+ + + + | 12/27/ | Office | [facility] | Aamir Lau, | Nasal Septal Defect | | 2007 | Visit | Center at [facility] [address] | [address] | (Primary Dx); | | | | [address] [facility] | [facility] [place] | Chronic Ethmoidal | | | | for Health and | [address] | Sinusitis; Other | | | | Healing, Building [address], | [phone] | Diseases of Nasal | | | | 5th Floor | | Cavity and Sinuses | | | | [place], [place] | | | | | | [address] | | | | | | [phone] | | | +--------+---------+ + + + [...] documented as of this encounter Progress Notes Aamir Lau - 12/28/2007 12:39 PM PSTI personally interviewed the patient, duplicated the pertinent parts of the physical examination and procedure and personally formulated the plan. I have reviewed, entered my findings, and agree with the above documentation. Aamir Lau M.D., M.P.H., F.A.C.S. Director, [facility] Professor and Chief, Rhinology and Sinus Surgery Department of Otolaryngology/Head and Neck Surgery Cristobal Muse, Lloyd Oumou - 11:36 AM PSTHPI: 47 yo F here to discuss septal perforation. She gives a 5 year hi story of chronic sinus symptoms including nasal obstrutctioin, facial pain/pressure, and nicol quent infections. She was treated with one month of avelox and prednisone before undergoing ESS and septoplasty by Dr. Benedict in [place]. She reports a prolonged recovery with sign ificant pain that took roughly 2 months. Overall she has done very well and reports major i mprovement in nasal obstruction and facial pain. She has not had any overt sinus infections . She did develop a nasal perforation anteriorly and has been bothered by constant crusting and bleeding rougly once per week. She irrigates daily but uses no other medication. She d id try a saline spray with oil for a month or so with no improvement. PMHX: None PSXH BTL Csxn ESS 06/21 Current outpatient prescriptions : CELEBREX [place], None Entered, Disp: , Rfl: No Known Allergies. Social HX: Lives [place], [place] No ETOH, No tobacc (quit several years ago) Hx of Cocaine use many years ago Family HX DM ROS: Eye: No visual changes, blurriness, pain, discharge Ear: No hearing changes, otalgia, drainage, ringing Nose: No rhinorrhea, congestion, discharge Oral: No pain, loose teeth, dry mouth Cervical: No masses, stiffness, pain Throat: No dysphagia, odynophagia Larynx: No hoarseness, pain with phonation, changes in voice strength or quality Pulmonary: No SOB, coughing, hemoptysis Cardio: No chest pain, palpitations Abdomen: No nausea, vomiting, diarrhea, constipation, pain Extremities: No swelling, numbness, tingling. Endocrine: No tremors, palpitations, diarrhea, vomiting, changes in skin consistency. No f atigue, weight gain/loss, constipation. General: Patient is calm, in no acute distress, and alert and oriented X4. Neuro: PERRLA, EOMI. Visual harrell full bilaterally. Face moves symmetrically: HB I Bilat erally. Tongue protrudes to midline. Soft palate elevates normally. Facial sensation inta ct in V1-V3 distribution bilaterally. Cervical: No masses or lesions present over scalp or face. Neck flat, no masses or LAD pal pated. No thryomegaly or nodules noted. Nasal: Anterior rhinoscopy shows roughly 1cm anterior nasal perforation with some crusting posterior and inferiorly. Oral: Oral cavity shows dentition in good repair. Normal appearance to mucosa of FOM, dors al tongue, RMT, and alveolar ridges. Tonsillar fossae and pillars nl appearing. Posterior oropharynx unremarkable. No trismus. Ear: EACs clear, TMs normal with no middle ear fluid noted. Procedure: Nasal endoscopy was performed after lidocaine 4% topical anesthetic was placed. A rigid endoscope was utilized to evaluate the sinonasal cavities, mucosa, sinus ostia and turbinates. Overall, mild mucosal inflammation is observed. No polyps, mucostasis, or puru lence. A moderate anterior septal perforation is noted with some inferior and posterior cru sting. A/P: 47 yo F with CRS and septal perforation Overall she is doing well after ESS and notes improvement in sxs She should continue nasal saline rinses Will try to improve health of perfortion using Bactroban ointment at night for 3 weeks then switch to MWF dosing. She will use Nasogel several times during day to improve hydration RTC [address] Olivia at same time to discuss surgical options, although she is not currently very interested. If she is not improved could consider septal button. documented in this encou nter Miscellaneous Notes Scan - Other, Faculty - 02/23/2008 2:44 PM PST can - Other, Faculty - 02/14/2008 9:49 PM PST Electronica marium signed by Bhargav Mcfarland In at 02/14/2008 9:49 PM PSTScjuaquin - Other, Faculty - 01/24 9:55 AM PST P STdocumented in this encounter Plan of Treatment + + +--------+ + + | Name | Type | Priori | Associated Diagnoses | Order Schedule | | | | ty | | | + + +--------+ + + | [facility] | Procedures | Routin | Chronic Ethmoidal | Ordered: 12/28/2007 | | ENDOSCOPY,DX | | e | Sinusitis | | + + +--------+ + + documented as of this encounter Visit Diagnoses + + | Diagnosis | + + | Nasal septal defect - Primary Other diseases of nasal cavity and sinuses | + + | Chronic ethmoidal sinusitis | + + | Other diseases of nasal cavity and sinuses(478.19) Other diseases of nasal cavity and | | sinuses | + + documented in this encounter"
--- OUTSIDE RECORDS SUMMARY | ~2019-10-19 | XMS | Encounter Summary ---
Demographics + + + | Address | [address] | | | [place] [address] | + + + | Home Phone | | + + + | Preferred Language | Unknown | + + + | Marital Status | | + + + | Druze Affiliation | Unknown | + + + | Race | White | + + + | Ethnic Group | Not or | + + + Author + + + | Author | [facility] | | | and [place] | + + + | Organization | [facility] | | | and [place] | + + + | Address | Unknown | + + + | Phone | Unavailable | + + + Support + + + + + | Name | Relationship | Address | Phone | + + + + + | Poncho Oquendo | ECON | [address] | | | | | [place] | | | | | [address] | | + + + + + | Marta Upton | ECON | [place] | | | | | [address] | | + + + + + Care Team Providers + +------+ + | Care Classified Advertising Manager Name | Role | Phone | + +------+ + PCP | Unavailable | + +------+ + Encounter Details +--------+ + + + + | Date | Type | Department | Care Team | Description | +--------+ + + + + | 07/15/ | Hospital | [facility] | Dale Taylor MD | | | 2011 | Encounter | MED CTR XRAY [address] | | | | | [place] | [address] [place], [place] | | | | | [place] [address] | [address] | | | | | [phone] | | | +--------+ + + + [...] | | | | | [place] [address] | | | | | | [phone] | | | | | | | [...] Performed At | + + + | [facility] Diagnostic Imaging Department | [facility] | | [address], [facility] | [facility] | | MRI OF THE BRAIN [...] Transcribed Date/Time: 07/16/2011 12:57 | | | Senior Electrical Project Manager: <Electronically Signed by Mathieu Brasher, | | | MD> 07/16/11 1437 | | + + + + + | Procedure Note | + + | Edmundo, Rad Conversion - 03/23/2013 5:27 PM [facility] | | Diagnostic Imaging Department [address] [place] [address] | | MRI OF THE BRAIN EXTENDED [...] Mathieu Field | | MD Anshu> 07/16/11 3577 | | | |The seventh and eighth [...] 12:45 | |Transcribed Date/Time: 07/16/2011 12:57 | |Senior Electrical Project Manager: | |<Electronically Signed by Mathieu Brasher [...]
--- OUTSIDE RECORDS SUMMARY | ~2019-10-19 | XMS | Encounter Summary ---
Demographics + + + | Address | [address] | | | [place] [address] | + + + | Home Phone [...] + | Poncho Oquendo | ECON | [address] | | | | | [place] | | | | | [address] | | + + + + + | Marta Upton | ECON | [place] | | | | | [address] | | + + + + + Care Team Providers + +------+ + | Care Elevator Installer Name | Role | Phone | [...] Closed | | Oncology | Diagnoses | [facility], | Travis, | | | | | [facility] | Valeriy Coello DO | Vladimir Nelson MD | | | | | Q IS OUT- | [address] | [address] | | | | | PATIENT IS | RD | STREET | | | | | FROM [facility] | [place], | [place], | | | | | LABS/PORT | [place] [address] | [place] [address] | | | | | 6 HOUR RX | Phone: | Phone: | | | | | Procedures | [phone] | [phone] | | | | | [facility] | Fax: | Fax: | | | | | FOLLOW UP | [phone] | [phone] | +--------+--------+ + + + + Encounter Details +--------+ + + + + | Date | Type | Department | Care Team | Description | +--------+ + + + + | 05/20/ | Hospital | [facility] | Vladimir Robles, | Gallbladder cancer, | | 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 | MED CTR MEDICAL | [address] | carcinoma (HCC) | | | | ONCOLOGY CLINIC [address] [place], | (Primary Dx); Liver | | | | [address] [place] | [place] [address] | metastases (HCC); | | | | [place] [address] | [phone] | Stage 3a chronic | | | | [phone] | | kidney disease; | | | [...] + | Blood Pressure | 124/71 | 05/20/2017 9:14 AM | | | | | PDT | | + + + + + | Pulse | 86 | 05/20/2017 9:14 AM | | | | | PDT | | + + + + + | Temperature | 37.1 C (98.8 F) | 05/20/2017 9:14 AM | | | | | PDT | | + + + + + | Respiratory Rate | 18 | 05/20/2017 9:14 AM | | | | | PDT | | + + + + + | Oxygen Saturation | 94% | 05/20/2017 9:14 AM | | | | | PDT | | + + + + + | Inhaled Oxygen | - | - | | | Concentration | | | | + + + + + | Weight | 70.1 kg (154 lb 8.7 | 05/20/2017 9:14 AM | | | | oz) | PDT | | + + + + + | Height | - | - | | + + + + + | Body Mass Index | 26.71 | 12/17/2014 3:06 PM | | | [...] Progress Notes Vladimir Robles MD - 05/20/2017 8:58 AM PDTFormatting of this note might be different fr om the original. Hematology-Oncology Progress Note [facility] Pt. Name/Age/: Aura Upton 56 y.o. 1960 CSN: [id number] Date of service: 05/20/2017 Provider: Vladimir Robles [...] adjustment of her ch emotherapy, specifically the cis-elim ira given her renal dysfunction. 1. Proceed with day 1, cycle 1 of dose adjusted cis-elim ira and gemcitabine as ordered. 2. Increase OxyContin [...] nausea, has decided to t ry palliative cis-elim ira/gemcitabine again to which she has responded in the past. Ended up in the emergency room yesterday in [place] with nausea and vomiting, responded to ondan [...] and 6 hour treatment, labs done in [facility]. My chart: Medications: Current Outpatient Prescriptions Medication [...] Vladimir Robles MD 05/20/2017 9:29 CC: Valeriy Carmona, Portions of this chart may have been created with PAYME[employer] voice recognition software. Occasi onal wrong-word or [...] HOME | | | | | | [place] [address] | | | | | | [phone] | | | | | | | | +--------+---------+ + + + documented as of this encounter Procedures + +--------+ + + + | Procedure Name | Priori | Date/Time | Associated Diagnosis | Comments | | | ty | | | | + +--------+ + + + | LABS - EXTERNAL SCAN | | 07/10/2019 | | Results for this | | | | 12:00 AM | | procedure are in the | | | | PDT | | results section. | + +--------+ + + + | LABS - EXTERNAL SCAN | | 07/03/2019 | | Results for this | | | | 12:00 AM | | procedure are in the | | | | PDT | | results section. | + +--------+ + + + | LABS - EXTERNAL SCAN | | 07/03/2019 | | Results for this | | | | 12:00 AM | | procedure are in the | | | | PDT | | results section. | + +--------+ + + + | IMAGING REPORT - | | 03/29/2018 | | Results for this | | EXTERNAL SCAN | | 12:00 AM | | procedure are in the | | | | PST | | results section. | + +--------+ + + + | LABS - EXTERNAL SCAN | | 02/02/2018 | | Results for this | | | | 12:00 AM | | procedure are in the | | | | PST | | results section. | + +--------+ + + + | LABS - EXTERNAL SCAN | | 01/10/2018 | | Results for this | | | | 12:00 AM | | procedure are in the | | | | PST | | results section. | + +--------+ + + + | IMAGING REPORT - | | 11/02/2017 | | Results for this | | EXTERNAL SCAN | | 12:00 AM | | procedure are in the | | | | PDT | | results section. | + +--------+ + + + | LABS - EXTERNAL SCAN | | 10/13/2017 | | Results for this | | | | 12:00 AM | | procedure are in the | | | | PDT | | results section. | + +--------+ + + + | LABS - EXTERNAL SCAN | | 07/03/2017 | | Results for this | | [...] this encounter Results LABS - EXTERNAL SCAN (07/10/2019 12:00 AM PDT) + + + | Narrative | Performed At | + + + | Ordered by an | | | unspecified provider. | | + + + LABS - EXTERNAL SCAN (07/03/2019 12:00 AM PDT) + + + | Narrative | Performed At | + + + | Ordered by an | | | unspecified provider. | | + + + LABS - EXTERNAL SCAN (07/03/2019 12:00 AM PDT) + + + | Narrative | Performed At | + + + | Ordered by an | | | unspecified provider. | | + + + IMAGING REPORT - EXTERNAL SCAN (03/29/2018 12:00 AM PST) + + + | Narrative | Performed At | + + + | Ordered by an | | | unspecified provider. | | + + + LABS - EXTERNAL SCAN (02/02/2018 12:00 AM PST) + + + | Narrative | Performed At | + + + | Ordered by an | | | unspecified provider. | | + + + LABS - EXTERNAL SCAN (01/10/2018 12:00 AM PST) + + + | Narrative | Performed At | + + + | Ordered by an | | | unspecified provider. | | + + + IMAGING REPORT - EXTERNAL SCAN (11/02/2017 12:00 AM PDT) + + + | Narrative | Performed At | + + + | Ordered by an | | | unspecified provider. | | + + + LABS - EXTERNAL SCAN (10/13/2017 12:00 AM PDT) + + + | Narrative | Performed At | + + + | Ordered by an | | | unspecified provider. | | + + + LABS - EXTERNAL SCAN (07/03/2017 12:00 AM PDT) + + + | Narrative | Performed At | + + + | Ordered by an | | | unspecified provider. 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
--- OUTSIDE RECORDS SUMMARY | ~2019-10-19 | XMS | Encounter Summary ---
Demographics + + + | Address | [address] | | | [place] [address] | + + + | Home Phone | | + + + | Preferred Language | Unknown | + + + | Marital Status | Single | + + + | Zoroastrian Affiliation | NON | + + + [...] Team Providers + +------+ + | Care Deicer Finisher Name | Role | Phone | + +------+ + | Tomasa Wanger | PCP | | + +------+ + [...] | +--------+ + + + + | 06/06/ | Hospital | [facility] [address] | Miguel Seymour, | | | 2015 - | Encounter | [address] | [address] [facility] | | | | | [place], [place] | [address] | | | 06/09/ | | [address] | [place], [place] | | | 2014 | | [phone] | [address] | | | | | | [phone] | | | | | | | [...] DISCHARGE SUMMARY Author: Roger Guadalupe MD PGY1 TRANSPORTATION TECHNICIAN Attending Physician: Dr. Henderson Admission Date: 06/06/2014 [...] to Get Your Medications You need to pick pulling machine operator these prescriptions. We sent some of them to a specific pharmacy. Go t o these places to get your medications. [facility] - enoxaparin 40 mg/0.4 mL Syrg [address] [facility] [place] [address] Hours: 8AM-9PM Mon-Fri; 9-5:30PM Sat-Sun You may [...] To contact your provider, please call the [facility] clinic at [phone] during daytime hours. During evening or weekend hours, please call the [facility] paging projector operator at [phone] and ask for the Electromatic Typist Oncology staff on-call. Reasons to call the [...] stable Discharging Physician: Roger Guadalupe MD PGY1 TRANSPORTATION TECHNICIAN Service Pager: [phone] Attending Physician: Dr. Henderson I saw and [...] patch to | 10 | 1 | 06/09/ | | | mg/patch) topical | skin [...] assessment and plan. Roger Guadalupe MD PGY1 TRANSPORTATION TECHNICIAN Service Pager: [phone] I saw and evaluated the patient. I [...] assistance. Primary service notified. SASHA DALY MD [facility] [address] [facility], 4th Floor Mail Code: CH4P [place], [place] [address] Sasha Antony MD - 06/08/2014 8:52 AM [...] location: midline incisional pain.. Typical i ntensity 4-5 Prior to hospitalization: Opioids: Hydrocodone as hydrocodone/acetaminophen [...] and recommendations with primary care team provider director web/oncology. SASHA DALY MD BILLING INFORMATION [facility] DEPARTMENT: [id number] Place of Service:- Inpatient Date of Service: 06/08/2014 CSN: [id number] Suggested Modifier: None Suggested CPT: 39632 - Daily mgmt epidural/subarachnoid drug administration Prolonged service: n/a Counseling and Coordination: n/a egetalisha, MD Miguel - 06/08/2014 8:00 AM PDT [...] assessment and plan. Roger Guadalupe MD PGY1 TRANSPORTATION TECHNICIAN Service Pager: [phone] I saw and evaluated the patient. I [...] separate note in EPIC). SASHA DALY MD [facility] [address] [facility], 4th Floor Mail Code: CH4P [place], [place] [address] Sasha Antony MD - 06/07/2014 7:39 AM [...] 125 mL/hr intravenous CONTINUOUS 125 mL/hr (06/07/14 0458) Type: Epidural Rate: 4 mL/hour Anticoagulants: enoxaparin 40 mg daily, last dose 0515 today Lab Results Component Value Date INRPT [...] care team provider . SASHA DALY MD [facility] [address] [facility], 4th Floor Mail Code: CH4P [place], [place] [address] BILLING INFORMATION [facility] DEPARTMENT: [phone] Place of Service:- Inpatient Date of Service: 06/07/2014 CSN: [id number] Suggested Modifier: GC - Resident Involved Suggested CPT: 17347 - Daily mgmt epidural/subarachnoid drug administration Prolonged service: n/a Counseling and Coordination: n/a Miguel Alejandro MD - 06/07/2014 6:30 AM PDT GYNECOLOGY ONCOLOGY INPATIENT PROGRESS NOTE Hospital Day: 0 Author: PONCHO ARRIOLA MD Attending Physician: Miguel Seymour MD ID: 53 year old POD#1 from ex-lap, JAEK, BSO, omentectomy, left para-aortic lymph node diss [...] this note might be different from the mohinder messina GYNECOLOGY ONCOLOGY INPATIENT PROGRESS NOTE Hospital Day: [...] AM PDTElectronically signed by Faculty Other at 12:15 AM PDTdocumented in this encounter Procedure Notes Other, Faculty - 06/12/2014 2:48 PM PDTAssociated Order(s): CARDIOLOGYElectronically karley d by Faculty Other at 06/12/2014 2:48 PM Miguel Alejandro MD - 06/06/2014 12:48 PM PDT Associated Order(s): OPERATION RECORDDate of Service: 06/06/2014 Attending Surgeon: Miguel Seymour MD Supervising Librarian(s): Poncho Arriola MD. Anesthesia: General endotracheal anesthesia [...] described in the note for this encounter. Miguel Seymour MD KD/MODL /[id number] [facility] DEPARTMENT: [id number] FIELD RADIO OPERATOR ONC [facility] Place of Service:[id number] - Date of Service: 06/07/2014 CSN: [id number] Suggested Modifier: None Suggested CPT: None Suggested Procedure CPT: To Strap Machine Operator Suggested Diagnosis: Ovarian ca egeestMiguel MD - 06/06/2014 11:32 AM PDTAssociated Order(s): PROCEDURE NOTEBRIEF OPERATIVE NOTE Procedure Date: 06/06/2014 Author: PONCOH ARRIOLA MD Attending Physician: Dr. Miguel Henderson Assistants: Dr. Poncho Arriola R4 Prior to the beginning of the procedure the team paused to verify the patient's identity, a s well as the procedure to be performed and the correct side/site. All equipment required w as ready and available. The patient was positioned appropriately. The following automobile washer steam s were present during the team pause: Surgical team, anesthesia team, sound technician supervisor, [facility] nurse. Preoperative Diagnosis: 1) Left adnexal mass-frozen [...] mg/m 2 BID concurrent with radiation therapy-5040 kaite total (28 rounds) 09/13/12-10/23/12. Aura underwent a [...] note for this encounter. MIGUEL SEYMOUR MD [facility] [address] [place] [address] documented in this encounter Consult Notes Laura Vazquez PharmD - 06/07/2014 11:34 AM PDT Pharmacy Services: [...] Significant medications resumed. Insurance Status: [employer] w/[employer] as secondary. Fills at [facility] in [place], [place]. Source of Medication Information: Patient and Pharmacy Reliability: Reliable All questions concerning medications, including OTC and herbal products, were addressed. For questions regarding this information please contact pharmacy, pager [phone] signed by Laura Vazquez PharmD at 06/07/2014 11:42 AM PDTdocumented in this encounter Miscellaneous Notes Scan - Eli, Faculty - 06/11/2014 10:06 AM PDTElectronically signed by Faculty Other at 10:06 AM PDTScan - Other, Faculty - 06/11/2014 12:15 AM PDT can - Eli Faculty - 06/10/2014 11:03 PM PDTElec tronically signed by Faculty Other at 06/10/2014 11:03 PM PDTEvaluation - Michelle Dow, DANIKA - 06/09/2014 3:50 PM PDTPatient Education Materials: [...] Kpad. Psych/social issues: pleasant, at bedside. From [place]. Last patient visit (i.e. Falls/Activity/Comfort/Environment/Toileting/Skin): ambulates with [...] Kpad. Psych/social issues: pleasant, at bedside. From [place]. Last patient visit (i.e. Falls/Activity/Comfort/Environment/Toileting/Skin): ambulates with [...] Temp 99.5, continue to monitor, febrile 06/07, aware and gave tylenol, afebrile this shif [...] monitor BP and adjust Epi rate accordingly. Avtar Shelton RN - 06/07/2014 6:11 PM PDTNursing Handoff [...] but improving Fever of 102.6F 06/06 overnight; aware and gave tylenol Afebrile this shift. [...] work with therapy Cognitive Screen See OT malou for details Physical Assessment Lower Extremity range [...] and agreeable to perform 2x each day. [facility] BASIC MOBILITY How much difficulty does the [...] scoring is based on skills and deficits demevelio shepard today 1 - Unable to do/total assistance [...] the skills of a therapist. Interpretation of [facility] Short Form - Basic Mobility: CMS Modifier [...] discharge summary. FAIZA MAYO PT lan of Latoya Gilliam RN - 06/07/2014 2:26 PM PDTProblem: Case [...] Significant Other Secondary Emergency Contact: Marta Upton "Elsy" Tristar Relation: Mother Past Medical History: Abdominal or pelvic swelling, mass or lump, unspecified site [179.30] , EXPLORATORY LAPAROTOMY FIELD RADIO OPERATOR TOTAL ABDOMINAL HYSTERECTOMY Lives With: spouse;child(sonal), dependent Living Arrangement: house Functional Level Prior to Admission: 0-->independent Transportation Available: Per private vehicle driven by Equipment Currently used at Home/DME Provider: none Home Health/Infusion Agency: n/a Insurance/Funding: [employer]; link bird Service Assessment: Per chart review and discussion with patient, her and team, no discharg e planning assistance from RN CM anticipated at this time. staying at [facility] pt is medically ready for discharge, he will assist patient with ADLs until she retur ns to baseline. Will continue to follow through discharge. Please see other disciplines' progress notes for their discharge recommendations. Please page family independence case manager if any CM arranged service needs arise. Anticipated Discharge Needs: Anticipated Discharge Disposition: home Assessment done by: Latoya TAPIA, RN 14A Waste Transportation Technician Pager: [phone] lan of [place] - Aneesh Flores, MICHAEL - 06/07/2014 10:30 AM PDT Occupational Therapy [...] ligation 2002 section 1998 Endoscopic sinus surgery 2008 deviated septum Laparoscopic cholecystectomy 2012 Dilation and [...] extremites Strength: 5/5 bilateral upper extremities, good motion picture photographer strength both hands Edema: None Skin Integrity: [...] hand hold assist with contact guard assist. [facility] daily activity assessment [facility] DAILY ACTIVITY - How much help from another person does the patient currently need f or: Lower body dressing 3 Bathing 3 Toileting 4 Upper body dressing 4 Personal grooming 4 Eating meals 4 [facility] Daily Activity Total Score 22 1 - Unable to do/total assistance = Total/Dependent Assist 2 - A lot = Maximum/Moderate Assistance 3 - A little = Minimal/Contact Guard Assist/Supervision 4 None = Modified independent/Independent Interpretation of [facility] Short Form Daily Activity: CMS Modifier (G-Code) [...] precautions. Education on use of long handled slate splitter and sock aide. Education on how to [...] monitoring an d adjustment of interventions. ANEESH HICKS, OT Jaz Maldonado RN - 06/06/2014 8:58 [...] was tachy and had low urine output; roxanne LI; bolused patient; patient also co mplained of [...] Procedure Performed: Procedure(s) with comments: DIAGNOSTIC LAPAROSCOPY (FIELD RADIO OPERATOR ONC) - EXPLORATORY LAPAROTOMY; TOTAL ABDOMINAL HYSTERECTOMY; [...] pain medication information: Epidural Functional Epidural: Yes SAW FEEDER: N/A Respiratory: RR: 11, O2 Sat: 99 %, O2 Delivery: None (room air) Breath Sounds: WDL KARI: LLL: RUL: RLL: MERNA No Comment: n/a Cardiac: BP: 89/47 mmHg HR: 65 GI: Nausea/Vomiting Status: No Signs/Symptoms: Interventions: Assessment: Comments: tolerating po, denies nausea : Last void: chery Contact Name: ArjunSYLVESTER Contact Number: [phone] Family contacted: Yes Comment:Poncho at bedside in [...] | Abdominal or | | | LAPAROSCOPY (FIELD RADIO OPERATOR | ve | 7:27 AM | pelvic [...] + +--------+ + + + | NON FIELD RADIO OPERATOR CYTOLOGY | Routin | 06/06/2014 | | [...] + + + + + | [facility] | [address] | [place] [address] | | | SERVICES, SAM | [address] | | | + + + + + MAGNESIUM, PLASMA (06/09/2014 5:39 AM PDT) + +-------+ + + + | Component | Value | Ref Range | Performed | Pathologist | | | | | At | Signature | + +-------+ + + + | MAGNESIUM,P | 2.0 | 1.8 - 2.5 mg/dL | O[facility]ANDY | | | LASMA | | | [...] | + + + + + | [facility] | [address] | [place] [address] | | | SERVICES, CORE | NEAL [...] | | | LABORATORY | | | SAMMARINESE | | | SERVICES, | | | [...] the MDRD equation recommended by the | [facility] | | National Kidney Disease Education Program. [...] + + + + + | [facility] | [address] | [place] [address] | | | SERVICES, CORE | P[address] [...] + + + + + | [facility] | [address] | [place] [address] | | | SAM ALONSO | NEAL [...] + + | [facility] | [address] | [place] [address] | | | SERVICES, CORE | PARK [...] | | | LABORATORY | | | SAMMARINESE | | | SERVICES, | | | [...] | + + + + + | [facility] | [address] | [place] [address] | | | SERVICES, CORE | [address] | | | + + + + + OPERATION RECORD (06/07/2014 8:30 AM PDT) + + | Transcriptions | + + | Miguel Seymour MD - 06/06/2014 12:48 PM PDT Date of Service: 06/06/2014 | | Attending Surgeon: Miguel Seymour MD Supervising Librarian(s): | | Poncho Arriola MD. Anesthesia: General [...] 06/06/2014 11:52:24DT: 06/06/2014 12:48:01Job #: | | [id number] DEPARTMENT: [id number] FIELD RADIO OPERATOR ONC KPlace of Service: - | | IPDate of Service: 06/07/2014 : [id number] | | Modifier: NoneSuggested CPT: NoneSuggested Procedure [...] + + + + + | [facility] | [address] | [place] [address] | | | SERVICES, SAM | NEAL [...] + + + + + | [facility] | [address] | [place] [id number] | | | SERVICES, CORE | PARK [...] | + + + + + | [facility] | [address] | [place] [address] | | | SERVICES, CORE | PARK [...] [facility] | [address] | [place] [address] | | | SERVICES, CORE | PARK [...] | | | LABORATORY | | | SAMMARINESE | | | SERVICES, | | | [...] | + + + + + | [facility] | [address] | [place] [address] | | | SERVICES, CORE | [address] | | | + + + + + NON FIELD RADIO OPERATOR CYTOLOGY (06/06/2014) + + + + + + | Component | Value | Ref Range | Performed | Pathologist | | | | | At | Signature | + + + + + + | NON-FIELD RADIO OPERATOR | SOURCE OF SPECIMEN:A | | [facility] [...] San | | | | | | CT(ASC)Senior Software Manager | | | | | | Electronically Signed | | | | | | 06/07/2014 | | | | | | 9:43AMRendering | | | | | | Diagnostician: Michael | | | | | | Sarah | | | | | | Dottiei | | | | | | analia [...] + + + + | [facility] | [address] | [place] [address] | | | PATHOLOGY | [address] [...] | | | | | | corresponding [id number] | | | | | | B: [...] bed | | | | | | ([id number], slides E3-4). | | | | | [...] Pathology | | | | | | ResidentDavichino Smith, | | | | | | M.D./PathologistT:06/10/ | | | | | | 15/rdl (Analyte | | | | | | specific reagents are | | | | | | used in many laboratory | | | | | | tests necessary | | | | | | [facility] | | | | | | care. This test was | | | | | | developed and its | | | | | | performancecharacteristi | | | | | | cs determined by [facility] | | | | | | laboratories. [...] | | | | | | s/pchemoXRT ([id number], | | | | | | [id number]); now with | | | | | [...] | | | | | | | Field Agent | | | | | | sections [...] identified. | | | | | | Field Agent | | | | | | sections [...] residueB3-6, | | | | | | software support representative sections | | | | | | of #1 external | | | | | | excrescenceB7-8, #2 | | | | | | external | | | | | | excrescenceB9-10, entire | | | | | | #3 external | | | | | | [id number], | | | | | | software support representative sections | | | | | | of del rio-brown | | | | | | excrescences from inner | | | | | | cyst hepqacxvdbT47-77, | | | | | | additional sections of | | | | | | wezugE36, software support representative | | | | | | [...] endomyometriumD5, | | | | | | software support representative sections | | | | | | of right ovaryD6-9, | | | | | | software support representative sections | | | | | | of external ovarian | | | | | | [id number], | | | | | | software support representative sections | | | | | [...] Smith | | | | | | MaycolPathologistCatei | | | | | | analia [...] + + + + | [facility] | [address] | [place] [address] | | | PATHOLOGY | [address] [...] + | Diagnosis | + + | Pelvic mass - Primary Abdominal or pelvic swelling, mass or lump, unspecified site | + + documented in this encounter Administered Medications + +--------+ + +------+------+ | Medication Order | MAR | Action | Dose | Rate | Site | | | Action | Date | | | | + +--------+ + +------+------+ | acetaminophen (TYLENOL) tablet | Given | 06/09/19 | 1,000 mg | | | | 1,000 mg 1,000 mg, oral, EVERY 6 | | 15 4:37 | | | | | HOURS NEEDED, Starting Fri | | PM PDT | | | | | 06/07/14 at 0315, Until Sat | | | | | | | 06/08/14 at 1710, mild pain, fever | | | | | | + +--------+ + +------+------+ +-------+ + +---+---+ | Given | 06/09/19 | 1,000 mg | | | | | 15 10:32 | | | | | | AM PDT | | | | +-------+ + +---+---+ | Given | 06/08/19 | 1,000 mg | | | | | 15 9:29 | | | | | | PM PDT | | | | +-------+ + +---+---+ +---+---+ | | | +---+---+ + +-------+ +--------+---+---+ | acetaminophen (TYLENOL) tablet | Given | 06/07/19 | 650 mg | | | | 325-650 mg 325-650 mg, oral, | | 15 11:35 | | | | | EVERY 4 HOURS NEEDED, Starting | | PM PDT | | | | | Adriana 06/06/14 at 1134, Until Fri | | | | | | | 06/07/14 at 0309, mild pain | | | | | | + +-------+ +--------+---+---+ +---+---+ | | | +---+---+ + +-------+ +--------+---+---+ | acetaminophen (TYLENOL) tablet | Given | 06/10/19 | 650 mg | | | | 650 mg 650 mg, oral, EVERY 6 | | 15 10:53 | | | | | HOURS, First dose on 06/08/14 | | AM PDT | | | | | at 2200, Until Discontinued | | | | | | + +-------+ +--------+---+---+ +-------+ +--------+---+---+ | Given | 06/10/19 | 650 mg | | | | | 15 4:57 | | | | | | AM PDT | | | | +-------+ +--------+---+---+ | Given | 06/09/19 | 650 mg | | | | | 15 11:10 | | | | | | PM PDT | | | | +-------+ +--------+---+---+ +---+---+ | | | +---+---+ + + + +---+---------+---+ | bupivacaine 0.05 | Bolus | 06/08/19 | | 5 mL/hr | | | %-HYDROmorphone 20 mcg/mL | from | 15 7:08 | | | | | epidural infusion epidural, | Same Bag | PM PDT | | | | | CONTINUOUS, Starting Adriana 06/06/14 | | | | | | | at 1015, Until 06/08/14 at | | | | | | | 1310 | | | | | | + + + +---+---------+---+ + + +---+---------+---+ | Rate/Dose Change | 06/08/19 | | 6 mL/hr | | | | 15 7:05 | | | | | | PM PDT | | | | + + +---+---------+---+ | Rate/Dose Change | 06/08/19 | | 5 mL/hr | | | | 15 5:05 | | | | | | PM PDT | | | | + + +---+---------+---+ +---+---+ | | | +---+---+ + +-------+ + +---+---+ | calcium carbonate chewable | Given | 06/10/19 | 400 mg | | | | (TUMS) tablet 400 mg elemental | | 15 1:37 | elementa | | | | 400 mg elemental (1,000 mg total | | PM PDT | l | | | | salt), oral, NEEDED, Starting | | | | | | | 06/08/14 at 1039, Until Sun | | | | | | | 06/09/14 at 2150, dyspepsia | | | | | | + +-------+ + +---+---+ +-------+ + +---+---+ | Given | 06/10/19 | 400 mg | | | | | 15 9:21 | elementa | | | | | AM PDT | l | | | +-------+ + +---+---+ | Given | 06/09/19 | 400 mg | | | | | 15 7:22 | elementa | | | | | PM PDT | l | | | +-------+ + +---+---+ +---+---+ | | | +---+---+ + +-------+ +--------+---+---+ | docusate sodium (COLACE) | Given | 06/10/19 | 100 mg | | | | capsule 100 mg 100 mg, oral, | | 15 9:15 | | | | | TWICE DAILY, First dose on Adriana | | AM PDT | | | | | 06/06/14 at 2100, Until | | | | | | | Discontinued | | | | | | + +-------+ +--------+---+---+ +-------+ +--------+---+---+ | Given | 06/09/19 | 100 mg | | | | | 15 8:16 | | | | | | PM PDT | | | | +-------+ +--------+---+---+ | Given | 06/09/19 | 100 mg | | | | | 15 10:32 | | | | | | AM PDT | | | | +-------+ +--------+---+---+ +---+---+ | | | +---+---+ + +-------+ +-------+---+---+ | enoxaparin (LOVENOX) injection | Given | 06/08/19 | 40 mg | | | | 40 mg 40 mg, subcutaneous, EVERY | | 15 5:15 | | | | | NOON, First dose on Tue06/07/14 | | AM PDT | | | | | at 0545, Until Discontinued | | | | | | + +-------+ +-------+---+---+ +---+---+ | | | +---+---+ + +-------+ +-------+---+---+ | enoxaparin (LOVENOX) injection | Given | 06/10/19 | 40 mg | | | | 40 mg 40 mg, subcutaneous, EVERY | | 15 2:13 | | | | | EVENING, First dose (after last | | PM PDT | | | | | modification) on Tue06/08/14 at | | | | | | | 2100, Until Discontinued | | | | | | + +-------+ +-------+---+---+ +-------+ +-------+---+---+ | Given | 06/09/19 | 40 mg | | | | | 15 8:16 | | | | | | PM PDT | | | | +-------+ +-------+---+---+ +---+---+ | | | +---+---+ + +-------+ +--------+---+---+ | ibuprofen (MOTRIN) tablet 600 | Given | 06/10/19 | 600 mg | | | | mg 600 mg, oral, EVERY 6 HOURS, | | 15 2:08 | | | | | First dose on 06/08/14 at | | PM PDT | | | | | 2200, Until Discontinued | | | | | | + +-------+ +--------+---+---+ +-------+ +--------+---+---+ | Given | 06/10/19 | 600 mg | | | | | 15 9:15 | | | | | | AM PDT | | | | +-------+ +--------+---+---+ | Given | 06/10/19 | 600 mg | | | | | 15 2:09 | | | | | | AM PDT | | | | +-------+ +--------+---+---+ +---+---+ | | | +---+---+ + +---------+ +---+---+---+ | lactated ringers IV 10 mL/hr, | New Bag | 06/07/19 | | | | | intravenous, PROCEDURE | | 15 10:40 | | | | | CONTINUOUS, Starting Adriana 06/06/14 | | AM PDT | | | | | at 0545, Until Adriana 06/06/14 at | | | | | | | 1136 | | | | | | + +---------+ +---+---+---+ +---------+ + + +---+ | New Bag | 06/07/19 | | | | | | 15 9:00 | | | | | | AM PDT | | | | +---------+ + + +---+ | New Bag | 06/07/19 | 10 mL/hr | 10 mL/hr | | | | 15 6:06 | | | | | | AM PDT | | | | +---------+ + + +---+ +---+---+ | | | +---+---+ + +---------+ + + +---+ | lactated ringers IV 75 mL/hr, | New Bag | 06/07/19 | 75 mL/hr | 75 mL/hr | | | intravenous, CONTINUOUS, Starting | | 15 12:53 | | | | | Adriana 06/06/14 at 1215, Until Fri | | PM PDT | | | | | 06/07/14 at 0305 | | | | | | + +---------+ + + +---+ +---+---+ | | | +---+---+ + +---------+ +-------+-------+---+ | lactated ringers IV 125 mL/hr, | New Bag | 06/08/19 | 125 | 125 | | | intravenous, CONTINUOUS, | | 15 6:39 | mL/hr | mL/hr | | | Starting 06/07/14 at 0315, | | PM PDT | | | | | Until 06/07/14 at 1855 | | | | | | + +---------+ +-------+-------+---+ +---------+ +-------+-------+---+ | New Bag | 06/08/19 | 125 | 125 | | | | 15 4:58 | mL/hr | mL/hr | | | | AM PDT | | | | +---------+ +-------+-------+---+ +---+---+ | | | +---+---+ + +---------+ + +---+---+ | lactated ringers IV 1,000 mL, | New Bag | 06/08/19 | 1,000 mL | | | | intravenous, ONCE, 1 dose, Fri | | 15 3:09 | | | | | 06/07/14 at 0315 | | AM PDT | | | | + +---------+ + +---+---+ +---+---+ | | | +---+---+ + + + +---------+---+---+ | lidocaine (LIDODERM) 5 %(700 | Applied | 06/10/19 | 1 patch | | | | mg/patch) patch 1 patch 1 patch, | Patch | 15 9:15 | | | | | transdermal, EVERY 24 HOURS, | | AM PDT | | | | | First dose on Tue06/07/14 at | | | | | | | 0845, Until Discontinued | | | | | | + + + +---------+---+---+ + + +---------+---+---+ | Applied Patch | 06/09/19 | 1 patch | | | | | 15 10:36 | | | | | | AM PDT | | | | + + +---------+---+---+ | Applied Patch | 06/08/19 | 1 patch | | | | | 15 10:05 | | | | | | AM PDT | | | | + + +---------+---+---+ +---+---+ | | | +---+---+ + +-------+ +---+---+---+ | lidocaine (XYLOCAINE) 10 mg/mL | Given | 06/07/19 | | | | | (1 %) injection subcutaneous, | | 15 6:06 | | | | | PREPROCEDURE PRN, Starting Adriana | | AM PDT | | | | | 06/06/14 at 0530, Until Adriana | | | | | | | 06/06/14 at 1136, IV start | | | | | | + +-------+ +---+---+---+ +---+---+ | | | +---+---+ + +---------+ +-----+---+---+ | magnesium sulfate in water IV | New Bag | 06/08/19 | 4 g | | | | (RTU) 4 g 4 g, intravenous, | | 15 6:50 | | | | | ONCE, 1 dose, 06/07/14 at 0715 | | AM PDT | | | | + +---------+ +-----+---+---+ +---+---+ | | | +---+---+ + +-------+ +------+---+---+ | ondansetron ODT (ZOFRAN ODT) | Given | 06/10/19 | 8 mg | | | | tablet 8 mg 8 mg, oral, EVERY 12 | | 15 11:29 | | | | | HOURS NEEDED, Starting Sun | | AM PDT | | | | | 06/09/14 at 1106, Until Sun | | | | | | | 06/09/14 at 2150, nausea/vomiting | | | | | | + +-------+ +------+---+---+ +---+---+ | | | +---+---+ + +-------+ +-------+---+---+ | oxyCODONE (immediate release) | Given | 06/10/19 | 20 mg | | | | (ROXICODONE) tablet 10-20 mg | | 15 1:37 | | | | | 10-20 mg, oral, EVERY 3 HOURS | | PM PDT | | | | | NEEDED, Starting 06/08/14 at | | | | | | | 1714, Until 06/09/14 at 2150, | | | | | | | severe pain | | | | | | + +-------+ +-------+---+---+ +-------+ +-------+---+---+ | Given | 06/10/19 | 20 mg | | | | | 15 9:14 | | | | | | AM PDT | | | | +-------+ +-------+---+---+ | Given | 06/10/19 | 20 mg | | | | | 15 4:57 | | | | | | AM PDT | | | | +-------+ +-------+---+---+ +---+---+ | | | +---+---+ + +-------+ +-------+---+---+ | oxyCODONE (immediate release) | Given | 06/09/19 | 15 mg | | | | (ROXICODONE) tablet 5-15 mg 5-15 | | 15 4:37 | | | | | mg, oral, EVERY 3 HOURS | | PM PDT | | | | | NEEDED, Starting 06/08/14 at | | | | | | | 0920, Until 06/08/14 at 1714, | | | | | | | severe pain | | | | | | + +-------+ +-------+---+---+ +-------+ +-------+---+---+ | Given | 06/09/19 | 15 mg | | | | | 15 1:59 | | | | | | PM PDT | | | | +-------+ +-------+---+---+ | Given | 06/09/19 | 10 mg | | | | | 15 10:32 | | | | | | AM PDT | | | | +-------+ +-------+---+---+ +---+---+ | | | +---+---+ + +---------+ +--------+---+---+ | potassium chloride IV | New Bag | 06/08/19 | 20 mEq | | | | (peripheral line) 20 mEq 20 mEq, | | 15 12:29 | | | | | intravenous, ONCE, 1 dose, Fri | | PM PDT | | | | | 06/07/14 at 0715 | | | | | | + +---------+ +--------+---+---+ +---+---+ | | | +---+---+ + +-------+ +-------+---+---+ | simethicone chew (MYLICON) | Given | 06/09/19 | 80 mg | | | | tablet 80 mg 80 mg, oral, THREE | | 15 5:24 | | | | | TIMES DAILY NEEDED, Starting | | PM PDT | | | | | Adriana 06/06/14 at 1134, Until Sun | | | | | | | 06/09/14 at 2150, bloating | | | | | | + +-------+ +-------+---+---+ +-------+ +-------+---+---+ | Given | 06/08/19 | 80 mg | | | | | 15 7:09 | | | | | | PM PDT | | | | +-------+ +-------+---+---+ | Given | 06/08/19 | 80 mg | | | | | 15 7:04 | | | | | | PM PDT | | | | +-------+ +-------+---+---+ +---+---+ | | | +---+---+ documented in this encounter
--- OUTSIDE RECORDS SUMMARY | ~2019-10-19 | XMS | Encounter Summary ---
Demographics + + + | Address | [address] | | | [place] [address] | + + + | Home Phone [...] + + + | Author | [facility] | + + + | Organization | [facility] | + + + | Address [...] Team Providers + +------+ + | Care Oyster Culturist Name | Role | Phone | + +------+ + | Tomasa Wagner | PCP | | + +------+ + Reason for Visit + +--------+ + | Reason | Onset | Comments | | | Date | | + +--------+ + | Ultrasound | 10/02/ | | | | 2012 | | + +--------+ + Encounter Details +--------+ + + + + | Date | Type | Department | Care Team | Description | +--------+ + + + + | 10/02/ | Telephone | [facility] | Tai Stanton, | Ultrasound | | 2012 | | Center at [facility] [address] | MD [address] [facility] | | | | | [facility] | [facility] | | | | | for [facility] and | [place], [place] | | | | | [facility] [address] | [address] | | | | | [place], [place] | [phone] | | | | | [address] | | | | | | [phone] | | | +--------+ + + + [...] encounter Miscellaneous Notes Telephone Encounter - Amy Dinh RN - 10/03/2012 10:09 AM PDTRN reviewed 09/[address] Stanton, no evidence of seroma or fluid collection. RN left message with patie nt notifying her of the above and to contact RN if further questions or concerns.Electronica darlyny signed by Amy Dinh RN at 10/03/2012 10:22 AM PDTTelephone Encounter - Guru Padilla - 10/02/2012 3:31 PM PDTPt called again hoping to discuss results of ultrasound. Informed her I will route another message requesting a call back. Patient is very anxious to discuss the results as she is still worried about the outcome. TEL: [phone] elephone Encounter - Hermila Hahn - 10/02/2012 10:16 AM PDTPt left VM this morning wondering about the results of h er Ultrasound ordered by Dr. Stanton. Ultrasound report scanned into Media tab with 10/02/2012 date. Done at [facility] . Pt requesting a call back on her cell with results. documented in this encounter Plan of Treatment Not on filedocumented as of this encounter Visit Diagnoses Not on filedocumented in this encounter"
--- OUTSIDE RECORDS SUMMARY | ~2019-10-19 | XMS | Encounter Summary ---
Demographics + + + | Address | [address] | | | [place] [address] | + + + | Home Phone | | + + + | Preferred Language | Unknown | + + + | Marital Status | | + + + | Advent Affiliation | Unknown | + + + | Race | White | + + + | Ethnic Group | Not or | + + + Author + + + | Author | [facility] | | | and [place] | + + + | Organization | [facility] | | | and [place] | + + + | Address | Unknown | + + + | Phone | Unavailable | + + + Support + + + + + | Name | Relationship | Address | Phone | + + + + + | Poncho Oquendo | ECON | [address] | | | | | [place] | | | | | [address] | | + + + + + | Marta Upton | ECON | [place] | | | | | [address] | | + + + + + Care Team Providers + +------+ + | Care Cableway Operator Name | Role | Phone | + +------+ + | Valeriy Carmona DO | TAWNYA | | + +------+ + Encounter Details +--------+ + + + + | Date | Type | Department | Care Team | Description | +--------+ + + + + | 06/23/ | Documentati | [facility] | Reinaldo, | | | 2016 | on | [facility] | Epifanio Soler MD [address] | | | | | [facility] [address] | [facility] | | | | | [address] | [address], [place] | | | | | [place] [address] | [address] | | | | | [phone] | | | +--------+ + + + [...] [address] | | | | | | [place] [address] | | | | | | [phone] | | | | | | | | +--------+---------+ + + + documented as of this encounter Visit Diagnoses + + | Diagnosis | + + | Gallbladder cancer, 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
--- OUTSIDE RECORDS SUMMARY | ~2019-10-19 | XMS | Encounter Summary ---
Demographics + + + | Address | [address] | | | [place] [address] | + + + | Home Phone | | + + + | Preferred Language | Unknown | + + + | Marital Status | | + + + | Anglican Affiliation | Unknown | + + + | Race | White | + + + | Ethnic Group | Not or | + + + Author + + + | Author | [facility] | | | and [place] | + + + | Organization | [facility] | | | and [place] | + + + | Address | Unknown | + + + | Phone | Unavailable | + + + Support + + + + + | Name | Relationship | Address | Phone | + + + + + | Poncho Oquendo | ECON | [address] | | | | | [place] | | | | | [address] | | + + + + + | Marta Upton | ECON | [place] | | | | | [address] | | + + + + + Care Team Providers + +------+ + | Care Wood Machine Carver Name | Role | Phone | + +------+ + PCP | Unavailable | + +------+ + Encounter Details +--------+ + + + + | Date | Type | Department | Care Team | Description | +--------+ + + + + | // | Orders Only | [facility] | Reinaldo, | Personal history of | | 2013 | | [facility] | Epifanio Soler MD [address] | malignant neoplasm | | | | [facility] [address] | [facility] | of other site in | | | | [address] | [address], [place] | gastrointestinal | | | | [place] [address] | [address] | tract (Primary Dx) | | | | [phone] | | | +--------+ + + + [...] [address] | | | | | | [place] [address] | | | | | | [phone] | | | | | | | [...] + | [facility] | [address] | [place] | [phone] | | [facility] | | [address] | | | - LABORATORY | | | | + + + + + | [facility] | [address] | [place] | | | [facility] | | [address], [facility] | | | - [...] | | | | | | [place] [address] | | | | + + + + + + + + | Specimen | + + | Blood specimen | | (specimen) - Vein | + + + + + + + | Performing | Address | City/State/Zipcode | Phone Number | | Organization | | | | + + + + + | [facility] | [address] | [place] [address] | [phone] | + + + + + Lactate [...] + | [facility] | [address] | [place] | [phone] | | [facility] | | [address] | | | - LABORATORY | | | | + + + + + | [facility] | [address] | [place], [place] | | | [facility] | | [id number] [place] [address] | | | - LABORATORY | | [...] | non- | FILTRATION | mL/min/1.73m2 | [facility] | | | [place] | RATE,ESTIMATED | | MEDICAL | | | | mL/min/1.85k1Bxso than | | CENTER - | | [...] | | | | | mg/dL | [facility] | | | | [...] + | [facility] | [address] | [place], [place] | [phone] | | [facility] | | [address] | | | - LABORATORY | | | | + + + + + | [facility] | [address] | [place], [place] | | | [facility] | | [address], [facility] | | | - [...] + + | Performing | Address | City/[facility]/Zipcode | Phone Number | | Organization | | | | + + + + + | [facility] | [address] | [place] | [phone] | | [facility] | | [address] | | | - LABORATORY | | | | + + + + + | [facility] | [address] | [place], [place] | | | [facility] | | [address], [place] | | | - LABORATORY | | | | + + + + + documented in this encounter Visit Diagnoses + + | Diagnosis | + + | Personal history of malignant neoplasm of other site in gastrointestinal tract - | | Primary | + + documented in this encounter"
--- OUTSIDE RECORDS SUMMARY | ~2019-10-19 | XMS | Encounter Summary ---
Demographics + + + | Address | [address] | | | [place] [address] | + + + | Home Phone | | + + + | Preferred Language | Unknown | + + + | Marital Status | Single | + + + | Gnosticist Affiliation | NON | + + + | Race | White | + + + | Ethnic Group | Not or | + + + Author + + + | Author | [facility] | + + + | Organization | [facility] | + + + | [...] Team Providers + +------+ + | Care Warehouse Stocker Name | Role | Phone | + +------+ + | Prudencio Isaac MD | PCP | | + +------+ + Encounter Details +--------+ + + + + | Date | Type | Department | Care Team | Description | +--------+ + + + + | 05/11/ | Telephone | [facility] | Tai Stanton, | | | 2012 | | Center at [facility] [address] | [address] [facility] | | | | | [facility] | [facility] | | | | | for [facility] and | [place], [place] | | | | | [facility] [place] [address] | [address] | | | | | [place], [place] | [phone] | | | | | [address] | | | | | | [phone] | | | +--------+ + + + [...] Telephone Encounter - Amy Dinh RN - 05/11/2012 2:26 PM PDTRN spoke with Dr. Blackburn, ref ill of gabapentin 300mg take 1 TID, #40 with 0 refills authorized, arranged at patient's [facility]. Patient to take as prescribed, RN discussed dosing instructions with patient.Electro nically signed by Amy Dinh RN at 05/11/2012 2:27 PM PDTTelephone Encounter - Amy Dinh RN - 05/11/2012 1:55 PM PDTRN spoke with patient who states upon her discharge she wa s taking oxycodone and Gabapentin every 3 hours until 3 days ago when she realized she had b een dosing incorrectly. Patient stopped Gabapentin when she realized the area however right sided pain returned and she resumed taking 2 days ago however at TID dosing which she state s is effective for her pain. Patient inquiring if she can obtain refill of Gabapentin as sh johanne is trying to wean off oxycodone and finds the Gabapentin to be effective. Notified patien t would review with MD and notify her as to plan of care. elephone Encounter - Willie Alva - 05/11/2012 9:13 AM PDTPt calling regarding her prescription for Gabapentin. She states that she has been taking the Rx incorrectly. This was prescribed to be taken three times daily, but she mixed the instructions with her other medications and has been taking it every 3 hours. She says that this Rx has been relieving her pain, and that she has been lowering her Oxyco done intake as a result. The pt would like to know if she may have a refill of the Gabapentin since this seems to be working. Dosage: 300 mg Quantity: 42 capsules When will the pt run out? 2 capsules left. Pain scale: 4-5/10 Pt notified of 72 hr refill policy. Please send new Rx to: [facility] [address] [place], [place] [address] [phone] signed by Willie Alva at 05/11/2012 9:19 AM PDTdocumented in this encounter Plan of Treatment Not on filedocumented as of this encounter Visit Diagnoses Not on filedocumented in this encounter"
--- OUTSIDE RECORDS SUMMARY | ~2019-10-19 | XMS | Encounter Summary ---
Demographics + + + | Address | [address] | | | [place] [address] | + + + | Home Phone | | + + + | Preferred Language | Unknown | + + + | Marital Status | | + + + | Yazidi Affiliation | Unknown | + + + | Race | White | + + + | Ethnic Group | Not or | + + + Author + + + | Author | [facility] | | | and [place] | + + + | Organization | [facility] | | | and [place] | + + + | Address | Unknown | + + + | Phone | Unavailable | + + + Support + + + + + | Name | Relationship | Address | Phone | + + + + + | Poncho Oquendo | ECON | [address] | | | | | [place] | | | | | [address] | | + + + + + | Marta Upton | ECON | [place] | | | | | [address] | | + + + + + Care Team Providers + +------+ + | Care Seal Delivery Vehicle Team Technician Name | Role | Phone | + +------+ + | Valeriy Carmona DO | PCP | | + +------+ + Reason for Visit +--------+--------+ + | Reason | Onset | Comments | | | Date | | +--------+--------+ + | Other | 09/03/ | | | | 2014 | | +--------+--------+ + Encounter Details +--------+--------+ + + + | Date | Type | Department | Care Team | Description | +--------+--------+ + + + | 09/03/ | Refill | [facility] | Reinaldo, | Other | | 2014 | | [facility] | Epifanio Soler MD [address] | | | | | [facility] [facility] | [facility] | | | | | [address] | [address] [place] | | | | | [place] [address] | [address] | | | | | [phone] | | | +--------+--------+ + + + [...] Telephone Encounter - Waleska Morrissey RN - 09/03/2014 11:31 AM PDTPatient states that she is short 2 tablets of Ondansetron 8mg and 2 tablets of Dexamethasone 4mg and requests t hat an Rx for these meds be sent to [facility]. The request for the lesser amoun ts has something to do with her [employer] insurance that I, truthfully, didn't understand.Electr onically signed by Waleska Morrissey RN at 09/03/2014 11:40 AM PDTTelephone Encounter - W Nikky butt - 09/03/2014 11:17 AM PDTAura was calling to speak with Charlotte. Lai, she will be at this phone number for the next hour: [phone] sig yenny by Nikky العراقي at 09/03/2014 11:17 AM PDTdocumented in this encounter Plan of Treatment +--------+---------+ + + + | Date | Type | Specialty | Care Team | Description | +--------+---------+ + + + | 10/29/ | Office | Urology | Pedro Green, | | | 2019 | Visit | | DO [address] | | | | | | [place] [address] | | | | | | [phone] | | | | | | | | +--------+---------+ + + + documented as of this encounter Visit Diagnoses + + | Diagnosis | + + | 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
--- OUTSIDE RECORDS SUMMARY | ~2019-10-19 | XMS | Encounter Summary ---
Demographics + + + | Address | [address] | | | [place] [address] | + + + | Home Phone [...] | Author | [facility] | | | and [place] | + + + | Organization | [facility] | | | and [place] | + + + | Address | Unknown | + + + | Phone | Unavailable | + + + Support + + + + + | Name | Relationship | Address | Phone | + + + + + | Poncho Oquendo | ECON | [address] | | | | | [place] | | | | | [address] | | + + + + + | Marta Upton | ECON | [place] | | | | | [address] | | + + + + + Care Team Providers + +------+ + | Care Property Supervisor Name | Role | Phone | [...] | Oncology | Diagnoses | Shabbir, | Travis, | | | | | Malignant | MD Louise | Vladimir Nelson MD | | | | | neoplasm of | [address] | [address]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 | [address] | | | | | (HCC) | [place] | [place], | | | | | Procedures | [address] | [place] [address] | | | | | DC OFFICE | Phone: | Phone: | | | | | OUTPATIENT | [phone] | [phone] | | | | | VISIT 25 | Fax: | Fax: | | | | | MINUTES | [phone] | [phone] | +--------+--------+ + + + + Encounter Details +--------+ + + + + | Date | Type | Department | Care Team | Description | +--------+ + + + + | 08/06/ | Hospital | [facility] | Vladimir Robels, | Gallbladder cancer, | | 2017 | Encounter | [facility] | MD Alanna BURRELL | carcinoma (HCC) | | | | [facility]IN[facility] [address] | [place], | (Primary Dx) | | | | [address] [place] | [place] [address] | | | | | [place] [address] | [phone] | | | | | [phone] | | | +--------+ + + + [...] + + + | Blood Pressure | 114/56 | 08/06/2016 9:15 AM | | | | | PDT | | + + + + + | Pulse | 94 | 08/06/2016 9:15 AM | | | | | PDT | | + + + + + | Temperature | 36.6 C (97.9 F) | 08/06/2016 9:15 AM | | | | | PDT | | + + + + + | Respiratory Rate | 18 | 08/06/2016 9:15 AM | | | | | PDT | | + + + + + | Oxygen Saturation | 98% | 08/06/2016 9:15 AM | | | | | PDT | | + + + + + | Inhaled Oxygen | - | - | | | Concentration | | | | + + + + + | Weight | 77.8 kg (171 lb 8.3 | 08/06/2016 9:15 AM | | | | oz) | PDT | | + + + + + | Height | - | - | | + + + + + | Body Mass Index | 29.64 | 12/17/2014 3:06 PM | | | [...] + + + +---------+ + + | ferrous sulfate | Take 325 mg by mouth | | 0 | | | | 325 mg tablet | 2 times daily (with | | | | 7 | | | breakfast & | | | | | | | dinner). | | | | | + + [...] encounter Progress Notes Vladimir Robles MD - 08/06/2016 9:18 AM PDTFormatting of this note might be different f rom the original. Hematology-Oncology Progress Note [facility] Pt. Name/Age/: Aura Upton 55 y.o. 1960 CSN: [id number] Date of service: 08/06/2016 Provider: Vladimir Robles MD HEMATOLOGY/ONCOLOGY PROBLEM LIST: Gallbladder cancer, carcinoma (HCC) 03/29/2012 Initial Diagnosis Gallbladder cancer, carcinoma (HCC) 04/26/2012 Surgery R0 resection 05/31/2012 - 09/03/2012 Chemotherapy Xeloda/gemcitabine x 4 - 10/04/2012 Radiation therapy XRT with Xeloda 06/07/2014 Relapse Complete resection 07/26/2014 - 11/29/2014 Chemotherapy Cisplatin/gemcitabine 03/15/2016 Relapse 04/02/2016 - Chemotherapy Cisplatin/gemcitabine Of note, above dates are not necessarily exact. Assessment and plan: Patient has had a remarkable natural history of recurrent metastatic gallbladder cancer, wi th near complete response to chemotherapy documented last month. Blood counts are appropria te to continue with treatment today, then will initiate routine follow-up again with Dr. Jesse villalpando as scheduled. 1. Day 8, cycle #6 of gemcitabine/cis-hopi. 2. Neupogen, [place] in [place]. 3. Follow-up scheduled with Dr. Najera on 08/18/16. Subjective: The patient chart and medications were reviewed in detail and the patient was seen and exam inedTimmy Upton is a 55 y.o. female with recurrent metastatic gallbladder cancer here for chemotherapy. Patient last received chemotherapy week ago. Has had some cumulative fatigue but no new pa resthesias, no abdominal pain. Appetite is good, maintaining her weight. No fevers. Tells me that today is her last planned chemotherapy. Did have CT imaging in June documenting com plete response other than one residual 5 6 millimeter liver lesion. PMH: No past medical history on file. [...] on file No family history on file. REVIEW OF SYSTEMS Constitutional: Gradual decrease in energy since March 2016 - energy is low. Nausea is d aily and mild for the past two weeks. Night sweats continue. Appetite remains poor. Denies h igh fevers, shaking chills, anorexia, vomiting or weight loss. Ear, Nose, Mouth, Throat: Tinnitus continues. Denies odynophagia or dysphagia. Cardiovascular: Intermittent spells of dyspnea and tachycardia brought on by exertion. Russell es shortness of breath,chest pain, palpitations or orthopnea. Respiratory: Denies cough, hemoptysis, or sputum production. Gastrointestinal: Intermittent abdominal pain continues. Denies abdominal pain, constipatio n, diarrhea, melena, or bright red blood per rectum. Genitourinary: Denies hematuria or dysuria. Musculoskeletal: Joint tenderness occurs after Neupogen injections. Neurologic: Denies headache, visual changes, or numbness/tingling of the extremities. Endocrine: Swelling of left lower leg occurs after chemotherapy treatment. Denies heat/cold intolerance. Hematologic: Continues to bruise easily. Denies spontaneous bleeding. Integumentary: Denies rash, wounds or other skin concerns. Pain: Abdominal pain is as high as 5/10 and as low as 0/10. Goal <4/10. ROS otherwise negative. Note:Here for labs, follow up and treatment. Last chemotherapy was a week ago at [facility]. My chart: active. Medications: Current Outpatient Prescriptions Medication Sig acetaminophen (TYLENOL) 500 mg tablet Take 500 mg by mouth every 4 hours as needed. dexamethasone (DECADRON) 4 mg tablet Twice daily po for two days after chemotherapy sary atment. docusate calcium (SURFAK) 240 mg capsule Take 240 mg by mouth as needed. ferrous sulfate 325 mg tablet Take 325 mg by mouth 2 times daily (with breakfast & dinn er). HYDROcodone-acetaminophen (NORCO) 10-325 mg per tablet Take 1 tablet by mouth every 6 h ours as needed for Pain. LORazepam (ATIVAN) 1 mg tablet take 1 tablet by mouth every 4 hours if needed FOR NAUSE A, ANXIETY OR RESTLESSNESS ondansetron (ZOFRAN) 4 mg tablet take 1 tablet by mouth twice a day for 2 days AFTER CH EMO polyethylene glycol (MIRALAX) packet Take 17 g by mouth as needed. Probiotic Product (PROBIOTIC DAILY PO) Take by mouth Daily. No current facility-administered medications for this encounter. Allergies: Allergies Allergen Reactions Sulfa Antibiotics Rash Sulfacetamide Sodium Hives Vitals: Temp: 36.6 C (97.9 F) BP: 114/56 Pulse: 94 Resp: 18 SpO2: 98 % on Temp :Temp Av.6 C (97.9 F) Min: 36.6 C (97.9 F) Max: 36.6 C (97.9 F) No intake or output data in the 24 hours ending 08/06/16 0934 Wt. Current: Weight: 77.8 kg (171 lb 8.3 oz) Physical Exam: Exam: ECOG Performance Status: 1 General: The patient is alert and oriented. No acute distress. Here with her mother. HEENT: PERRL, Non-icteric. Skin: No rashes, bruising, or petechiae. Psychiatric: Normal mood and affect. Appropriate. Diagnostic studies: Available data and image reports were reviewed personally. See reports. Significant resul ts and findings are addressed here or in the Assessment and Plan. Recent Labs Lab 08/06/16 0849 WBC 6.1 HGB 9.5* HCT 28.0* PLT 106* Recent Labs Lab 08/06/16 0849 NA 137 K 4.3 CL 101 CO2 28 BUN 12 CREA 0.95 GLU 137* CALCIUM 8.9 BILITOT 0.5 AST 27 ALT 19 ALKPHOS 139* ALBUMIN 3.7 Electronically signed by: Vladimir Robles MD 08/06/2016 9:34 CC: Valeriy Carmona DO Total time in face to face discussion with the patient and family was 15minutes; more than 50% of the time was spent in counseling and coordination of care. Portions of this chart may have been created with [employer] voice recognition software. Occasi onal wrong-word or [...] | Visit | | DO [address] | | | | | | [place] [address] | | | | | | [phone] | | | | | | | | +--------+---------+ + + + documented as of this encounter Procedures + +--------+ + + + | Procedure Name | Priori | Date/Time | Associated Diagnosis | Comments | | | ty | | | | + +--------+ + + + | IMAGING REPORT - | | 04/26/2017 | | Results for this | | EXTERNAL SCAN | | 12:00 AM | | procedure are in the | | | | PDT | | results section. | + +--------+ + + + | LABS - EXTERNAL SCAN | | 04/25/2017 | | Results for this | | | | 12:00 AM | | procedure are in the | | | | PDT | | results section. | + +--------+ + + + | LABS - EXTERNAL SCAN | | 08/19/2016 | | Results for this | | | | 12:00 AM | | procedure are in the | | | | PDT | | results section. | + +--------+ + + + documented in this encounter Results IMAGING REPORT - EXTERNAL SCAN (04/26/2017 12:00 AM PDT) + + + | Narrative | Performed At | + + + | Ordered by an | | | unspecified provider. | | + + + LABS - EXTERNAL SCAN (04/25/2017 12:00 AM PDT) + + + | Narrative | Performed At | + + + | Ordered by an | | | unspecified provider. | | + + + LABS - EXTERNAL SCAN (08/19/2016 12:00 AM PDT) + + + | [...]
--- OUTSIDE RECORDS SUMMARY | ~2019-10-19 | XMS | Encounter Summary ---
Demographics + + + | Address | [address] | | | [place] [address] | + + + | Home Phone [...] Team Providers + +------+ + | Care Refrigeration Plant Operator Name | Role | Phone | [...] + + + + | 04/27/ | Abstract | Preoperative | Paola Gerber, | Pre-op evaluation | | 2012 | | Medicine Clinic at | MD | | | | | [facility] 4th Floor [address] | | | | | | Mailcode: CH4S | | | | | | [facility] | | | | | | and Healing, | | | | | | Building [address],4th Floor | | | | | | [place], [place] | | | | | | [address] | | | | | | [phone] | | | +--------+ + + + [...] documented as of this encounter Progress Notes Zhane Nuñez - 04/27/2012 1:41 PM PDTOR 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 documented in this encounter Plan of Treatment Not on filedocumented as of this encounter Visit Diagnoses Not on filedocumented in this encounter"
--- OUTSIDE RECORDS SUMMARY | ~2019-10-19 | XMS | Encounter Summary ---
Demographics + + + | Address | [address] | | | [place] [address] | + + + | Home Phone [...] + | Poncho Oquendo | ECON | [address] | | | | | [place] | | | | | [address] | | + + + + + | Marta Upton | ECON | [place] | | | | | [address] | | + + + + + Care Team Providers + +------+ + | Care Slitting Machine Operator Helper Name | Role | Phone | + +------+ + | Valeriy Carmona DO | PCP | | + +------+ + Reason for Visit +--------+--------+ + | Reason | Onset | Comments | | | Date | | +--------+--------+ + | Other | 06/24/ | | | | 2014 | | +--------+--------+ + Encounter Details +--------+ + + + + | Date | Type | Department | Care Team | Description | +--------+ + + + + | 06/24/ | Telephone | [facility] | Reinaldo, | Other | | 2014 | | [facility] | Chad Sloer MD [address] | | | | | [facility]INIC [facility] | [facility] | | | | | [address] | [address] [place], [place] | | | | | [place] [address] | [id number] | | | | | [phone] | | | +--------+ + + + [...] Telephone Encounter - Sonia Renae RN - 06/24/2014 5:19 PM PDTCall to patient, zachariah whiting will have [facility] fax records to Dr. Riggins at 06/26/14 visit. elephone Encounter - Chad Riggins MD - 06/24/2014 4:54 PM PDTI have not had any communication from her other providers so I was unaware of her new diagnosis. CHAD RIGGINS MD elephone Encou anastacio - Sonia Renae RN - 06/24/2014 4:[address] at [facility] on 03/18/14 whi ch reported showed small left ovarian cyst. Patient saw a MEDICAL TECHNOLOGIST CHEMISTRY Latoya Holt who did a US o n 05/08/14 which reportedly showed growth in cyst. 4/8/[address] here at [facility] . Saw Dr. Lorie Maciel at [facility] and had surgery on 06/06/14 for hysterectomy with excision of tubes and ovar ies and laparotomy. 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 Page at [facility] on 06/26/14. Patient concerned that there has not been recent commun ication back from Dr. Riggins. Patient asking that information be faxed to Dr. Page's office today to prepare for her appointment which I did accomplish for her. elephone Encounter - Clarissa Ordoenz - 06/24/2014 3:37 PM PDTRitu has been diagnosed with recurrent gallbladder cancer since her last visit t o . She'd like to talk to you about her appointment at [facility]. She'd appreciat e a call back today. P DTdocumented in this encounter Plan of Treatment +--------+---------+ + + + | Date | Type | Specialty | Care Team | Description | +--------+---------+ + + + | 10/29/ | Office | Urology | Pedro Green, | | | 2019 | Visit | | DO [address] | | | | | | [place] [address] | | | | | | [phone] | | | | | | | | +--------+---------+ + + + documented as of this encounter Visit Diagnoses Not on filedocumented in this encounter"
--- OUTSIDE RECORDS SUMMARY | ~2019-10-19 | XMS | Encounter Summary ---
Demographics + + + | Address | [address] | | | [place] [address] | + + + | Home Phone | | + + + | Preferred Language | Unknown | + + + | Marital Status | | + + + | Samaritan Affiliation | Unknown | + + + | Race | White | + + + | Ethnic Group | Not or | + + + Author + + + | Author | [facility] | | | and [place] | + + + | Organization | [facility] | | | and [place] | + + + | Address | Unknown | + + + | Phone | Unavailable | + + + Support + + + + + | Name | Relationship | Address | Phone | + + + + + | Poncho Oquendo | ECON | [address] | | | | | [place] | | | | | [address] | | + + + + + | Marta Upton | ECON | [place] | | | | | [address] | | + + + + + Care Team Providers + +------+ + | Care Building Consultant Name | Role | Phone | [...] + + | 09/03/ | Refill | [facility] | Reinaldo, | Other | | 2014 | | [facility] | Epifanio Soler MD [address] | | | | | [facility]Y CL[facility] [address] | [facility] | | | | | [address] | [address] | | | | | [place] [address] | [address] | | | | | [phone] | | | +--------+--------+ + + + [...] Rx for these meds be sent to [facility]. The request for the lesser amoun ts [...] [address] | | | | | | [place] [address] | | | | | | [phone] | | | | | | | | +--------+---------+ + + + documented as of this encounter Visit Diagnoses + + | Diagnosis | + + | 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
--- OUTSIDE RECORDS SUMMARY | ~2019-10-19 | XMS | Encounter Summary ---
Demographics + + + | Address | [address] | | | [place] [address] | + + + | Home Phone [...] | Author | [facility] | | | and [place] | + + + | Organization | [facility] | | | and [place] | + + + | Address | Unknown | + + + | Phone | Unavailable | + + + Support + + + + + | Name | Relationship | Address | Phone | + + + + + | Poncho Oquendo | ECON | [address] | | | | | [place] | | | | | [address] | | + + + + + | Marta Upton | ECON | [place] | | | | | [address] | | + + + + + Care Team Providers + +------+ + | Care Marketing Operations Specialist Name | Role | Phone | + +------+ + | Valeriy Carmona DO | TAWNYA | | + +------+ + Encounter Details +--------+ + + + + | Date | Type | Department | Care Team | Description | +--------+ + + + + | 07/30/ | Orders Only | [facility] | Reinaldo, | Gallbladder cancer, | | 2017 | | [facility] | Epifanio Soler MD [address] | carcinoma (HCC) | | | | [facility] CL[facility]IC [address] | [facility] | | | | | [address] | [address] [place], [place] | | | | | [place] [address] | [address] | | | | | [phone] | | | +--------+ + + + [...] | | | | | [place] [address] | | | | | | [phone] | | | | | | | | +--------+---------+ + + + documented as of this encounter Visit Diagnoses + + | Diagnosis | + + | Gallbladder cancer, carcinoma (HCC) Malignant neoplasm of gallbladder | + + documented in this encounter"
--- OUTSIDE RECORDS SUMMARY | ~2019-10-19 | XMS | Encounter Summary ---
Demographics + + + | Address | [address] | | | [place] [address] | + + + | Home Phone [...] + | Poncho Oquendo | ECON | [address] | | | | | [place] | | | | | [address] | | + + + + + | Marta Upton | ECON | [place] | | | | | [address] | | + + + + + Care Team Providers + +------+ + | Care Spray Gunner Name | Role | Phone | + +------+ + PCP | Unavailable | + +------+ + Encounter Details +--------+ + + + + | Date | Type | Department | Care Team | Description | +--------+ + + + + | 09/28/ | Hospital | [facility] | | | | 2012 | Encounter | MED CTR XRAY [address] | | | | | | [place] | | | | | | [place] [address] | | | | | | [phone] | | | +--------+ + + + [...] by | | 0 | 10/28/19 | 08/12/201 | | oxyCODONE-acetaminop | mouth Daily as [...] | | | | | [place] [address] | | | | | | [phone] | | | | | | | | +--------+---------+ + + + documented as of this encounter Procedures + +--------+ + + + | Procedure Name | Priori | Date/Time | Associated Diagnosis | Comments | | | ty | | | | + +--------+ + + + | US ABDOMEN LIMITED | Routin | 09/28/2012 | | Results for this | | | e | 12:30 PM | | procedure are in the | | | | PDT | | results section. | + +--------+ + + + | XR ABDOMEN AP | Routin | 09/28/2012 | | Results for this | | | e | 10:03 AM | | procedure are in the | | | | PDT | | results section. | + +--------+ + + + documented in this encounter Results US Abdomen Limited (09/28/2012 12:30 PM PDT) + + | Specimen | + + | | + + + + + | Narrative | Performed At | + + + | Merged With [facility] | [place] | | Department [address] [place] [address] | [facility] | | [ rep [address]] [ rep [facility] | | st zip] Signed | - IMAGING | | | | | Patient Name: AURA UPTON Physician: | | | SHEP.[id number] : 1960 Age: 51 Sex: F Unit #: [id number] | | | Exam Date: 09/28/12 Location: [facility] | | | Report #: [id number] Page: | | | %(RAD)RES..mtdd.print.filter("pg") of %(RAD) | | | RES..mtdd.print.filter("tpg") | | | | | | Accession Number: [id number] | | | ABDOMINAL ULTRASOUND, 09/28/2012 CLINICAL HISTORY: | | | HISTORY OF GALLBLADDER CANCER, EVALUATE FOR INFLAMMATION AT | | | OPERATIVE SITE. EVALUATE FOR ABSCESS. COMPARISON: CT | | | scan of the chest, abdomen/pelvis dated 04/12/2012, abdominal | | | ultrasound dated 2012. PROTOCOL: Grayscale and | | | Doppler images of the abdomen. FINDINGS: At the site of | | | prior surgery, some prominent superficial soft tissue is observed with | | | no evidence for abscess or seroma. This area of mild thickening | | | is likely to be post surgical. Incidental evaluation of | | | the gallbladder fossa demonstrates no evidence for residual | | | gallbladder tissue. There is no evidence for recurrence of tumor. | | | No sonographic Padilla sign was observed. Common bile duct is 3.3 | | | mm, which is normal. The liver demonstrates a coarse | | | appearance with partial resection. The pancreas | | | demonstrates increased echogenicity, likely energy conservation representative of fatty | | | infiltration. There is limited evaluation, but no obvious masses | | | are seen. The right kidney measures 8.0 x 3.6 x 4.1 cm, | | | which is decreased in size. Parenchyma is normal with no evidence | | | for hydronephrosis. There is normal color flow in the | | | IVC, portal veins, and hepatic veins. IMPRESSION: | | | 1. AT AREA OF SURGICAL SITE, THERE IS NO EVIDENCE FOR ABSCESS | | | OR SEROMA. SOME LIKELY POST-SURGICAL SOFT TISSUE THICKENING IS | | | OBSERVED IN THE SUBCUTANEOUS REGIONS. 2. NO EVIDENCE | | | FOR TUMOR RECURRENCE IN THE RIGHT UPPER QUADRANT OF THE ABDOMEN. | | | Dictated Date/Time: 09/28/2012 12:30 Transcribed | | | Date/Time: 09/28/2012 12:53 Road Cutter: | | | <<Signature on File>> | | | Jj | | | MD Franck09/28/12 2019 <Electronically signed by Jj Juárez MD> | | | Jj Juárez MD 09/28/[address]utter: Catarino | | | Gvwznnanohaba09/15/13 1253 Tai Stanton MD | | | Tej Boyce DO | | + + + + + + + + | Performing | Address | City/State/Zipcode | Phone Number | | Organization | | | | + + + + + | [facility] | [address] | [place] | [phone] | | [facility] | | [address] | | | - IMAGING | | | | + + + + + XR Abdomen AP (09/28/2012 10:03 AM PDT) + + | Specimen | + + | | + + + + + | Narrative | Performed At | + + + | Accession Number: [id number] ABDOMINAL ULTRASOUND, | | | 09/28/2012 CLINICAL HISTORY: HISTORY OF GALLBLADDER CANCER, | | | EVALUATE FOR INFLAMMATION AT OPERATIVE SITE. EVALUATE FOR ABSCESS. | | | COMPARISON: CT scan of the chest, abdomen/pelvis dated | | | 04/12/2012, abdominal ultrasound dated 03/21/2012. PROTOCOL: | | | Grayscale and Doppler images of the abdomen. FINDINGS: At the | | | site of prior surgery, some prominent superficial soft tissue is | | | observed with no evidence for abscess or seroma. This area of mild | | | thickening is likely to be post surgical. Incidental evaluation | | | of the gallbladder fossa demonstrates no evidence for residual | | | gallbladder tissue. There is no evidence for recurrence of tumor. | | | No sonographic Padilla sign was observed. Common bile duct is 3.3 | | | mm, which is normal. The liver demonstrates a coarse appearance | | | with partial resection. The pancreas demonstrates increased | | | echogenicity, likely energy conservation representative of fatty infiltration. There is | | | limited evaluation, but no obvious masses are seen. The right | | | kidney measures 8.0 x 3.6 x 4.1 cm, which is decreased in size. | | | Parenchyma is normal with no evidence for hydronephrosis. | | | There is normal color flow in the IVC, portal veins, and hepatic | | | veins. IMPRESSION: 1. AT AREA OF SURGICAL SITE, THERE IS | | | NO EVIDENCE FOR ABSCESS OR SEROMA. SOME LIKELY POST-SURGICAL SOFT | | | TISSUE THICKENING IS OBSERVED IN THE SUBCUTANEOUS REGIONS. 2. | | | NO EVIDENCE FOR TUMOR RECURRENCE IN THE RIGHT UPPER QUADRANT OF THE | | | ABDOMEN. Dictated Date/Time: 09/28/2012 12:30 Transcribed | | | Date/Time: 09/28/2012 12:53 Road Cutter: | | | <<Signature on File>> | | | Jj | | | MD Franck09/28/12 2019 <Electronically signed by Jj Juárez MD> | | | Jj Juárez MD 09/28/[address]utter: Catarino | | | Ulxtakoxxqssn57/15/13 1253 MD Tej Ramachandran DO | | | | | + + + + + | Procedure Note | + + | Edmundo Rad Results In - 07/07/2015 9:27 AM PDT Accession Number: [id number] | | ULTRASOUND, 09/28/2012 CLINICAL HISTORY: HISTORY OF GALLBLADDER CANCER, EVALUATE FOR | | INFLAMMATION AT OPERATIVE SITE. EVALUATE FOR ABSCESS. COMPARISON: CT scan of the | | chest, abdomen/pelvis dated 04/12/2012, abdominal ultrasound dated 03/21/2012. | | PROTOCOL: Grayscale and Doppler images of the abdomen. FINDINGS: At the site of prior | | surgery, some prominent superficial soft tissue is observed with no evidence for abscess | | or seroma. This area of mildthickening is likely to be post surgical. Incidental | | evaluation of the gallbladder fossa demonstrates no evidence for residual gallbladder | | tissue. There is no evidence for recurrence of tumor. Nosonographic Padilla sign was | | observed. Common bile duct is 3.3 mm, which is normal. The liver demonstrates a | | coarse appearance with partial resection. The pancreas demonstrates increased | | echogenicity, likely energy conservation representative of fatty infiltration. There is limited evaluation, | | but no obvious masses are seen. The right kidney measures 8.0 x 3.6 x 4.1 cm, which | | is decreased in size. Parenchyma is normal with no evidence for hydronephrosis. There | | is normal color flow in the IVC, portal veins, and hepatic veins. IMPRESSION: 1. AT | | AREA OF SURGICAL SITE, THERE IS NO EVIDENCE FOR ABSCESS OR SEROMA. SOME LIKELY | | POST-SURGICAL SOFT TISSUETHICKENING IS OBSERVED IN THE SUBCUTANEOUS REGIONS. 2. NO | | EVIDENCE FOR TUMOR RECURRENCE IN THE RIGHT UPPER QUADRANT OF THE ABDOMEN. Dictated | | Date/Time: 09/28/2012 12:30Transcribed Date/Time: 09/28/2012 12:53Transcriptionist: | | <<Signature on | | File>> Jj Juárez MD09/28/12 | | 2019<Electronically signed by Jj Juárez MD>Jj Juárez MD 09/28/12 | | 1230Transcriptionist: uberVU Tqwtwzxyiigyr22/15/13 1253Brett Nusrat Antonio, | | DO | |There is normal color flow in the IVC, portal veins, and hepatic veins. | | | |IMPRESSION: | | | |1. AT AREA OF SURGICAL SITE, THERE IS NO EVIDENCE FOR ABSCESS OR SEROMA. SOME LIKELY POST -SURGICAL SOFT TISSUE | |THICKENING IS OBSERVED IN THE SUBCUTANEOUS REGIONS. | | | |2. NO EVIDENCE FOR TUMOR RECURRENCE IN THE RIGHT UPPER QUADRANT OF THE ABDOMEN. | | | |Dictated Date/Time: 09/28/2012 12:30 | |Transcribed Date/Time: 09/28/2012 12:53 | |Road Cutter: | | | | | | | |<<Signature on File>> | | | |Jj Juárez MD09/28/12 2019 | |<Electronically signed by Jj Juárez MD> | | | | | |Jj Juárez MD 09/28/12 3840 | |Road Cutter: uberVU Igaweayrqijtg35/15/13 0573 | | | | | |Tai Stanton MD | |Tej Boyce DO | + + documented in this encounter Visit Diagnoses Not on filedocumented in this encounter
--- OUTSIDE RECORDS SUMMARY | ~2019-10-19 | XMS | Encounter Summary ---
Demographics + + + | Address | [address] | | | [place] [address] | + + + | Home Phone | | + + + | Preferred Language | Unknown | + + + | Marital Status | | + + + | Anabaptism Affiliation | Unknown | + + + | Race | White | + + + | Ethnic Group | Not or | + + + Author + + + | Author | [facility] | | | and [place] | + + + | Organization | [facility] | | | and [place] | + + + | Address | Unknown | + + + | Phone | Unavailable | + + + Support + + + + + | Name | Relationship | Address | Phone | + + + + + | Poncho Oquendo | ECON | [address] | | | | | [place] | | | | | [address] | | + + + + + | Marta Upton | ECON | [place] | | | | | [address] | | + + + + + Care Team Providers + +------+ + | Care Armoured Car Escort Name | Role | Phone | + [...] + + | 04/26/ | Hospital | [facility] | | Gallbladder cancer, | | 2020 | Encounter | REGIONAL SURGERY | | carcinoma (HCC); | | | | [facility] | | Obstruction of left | | | | [address] | | ureter | | | | [place], [place] | | | | | | [address] | | | | | | [phone] | | | +--------+ + + + [...] lasts more than a day, a fever [id number] (38 C), or trouble urinating. Date Last Reviewed: 02/15/201619999677-8391 [employer]. [address] [place] [address], [place] [address]. All [facility] ts reserved. This information is not intended [...] out of the urethra Date Last Reviewed: 02/15/201619993039-7024 [employer]. [address] [place] [address]. All righ ts reserved. This information is [...] insert 1 tablet | | 0 | // | | | (VAGIFEM) 10 mcg | vaginally two times | | | 20 | | | vaginal tablet | a week | | | | | + + + +---------+ + + | GRANIX 300 | | | 0 | / | | | MCG/0.5ML injection | | | | 19 | | + + + +---------+ + + | | take 1 tablet by | | 0 | //20 | | | HYDROcodone-acetamin | mouth every [...] to spouse. documented in this en counter H&P Pedro Perales DO - 04/27/2019 8:52 AM PDTFormatting of this note might be different fr om the original. [facility] Urology Primary Care Provider: No [...] Dr Pedro Green DO The patient is a58 y.o.femalewith significant past medical history below who presents for follow up. She is doing well overall. Recent imaging showed a lack of recurrence of her malignancy. There was a question of incre ased left hydronephrosis. She notes some intermittent cramping type left flank pain. She denies UTI, fevers, nausea . INTERVAL: 06/08/2018 - Dr Pedro Green DO [...] this well. Her last exchange was at [facility] during a septic episode. Her [...] STENT stent removal and replacement; Surgeon: Pedro Green DO; Location: [facility] MAIN OR HYSTERECTOMY LIVER SURGERY OTHER SURGICAL HISTORY UNLISTED PROCEDURE ARTHROSCOPY OTHER SURGICAL HISTORY MEDIPORT INSERTION SINGLE OTHER SURGICAL HISTORY HARDWARE PRESENT OTHER SURGICAL HISTORY Left 07/05/2018 CYSTOSCOPY W/ URETERAL STENT PLACEMENT - Procedure: CYSTOSCOPY - STENT; Surgeon: Cheikh Green DO; Location: [facility] MAIN OR; Service: Urology; Laterality: Left; stent exchang e Family History Problem Relation Age of Onset [...] long discussion, he wishes to proceed with t herapy as above. We will plan on left stent exchange in the near future. Pedro Green DO 03/26/2019 CC: indwelling stent; ureteral obstruction Pt presents for planned left ureteral stent exchange. She is doing well. Her last exchang e was in November. Review of Systems Constitutional: Negative for fever and weight loss. Eyes: Negative for blurred vision. Cardiovascular: Negative for chest pain. Gastrointestinal: Negative for abdominal pain, nausea and vomiting. Genitourinary:See HPI. Musculoskeletal: Negative for myalgias. Neurological: Negative for dizziness and headaches. Endo/Heme/Allergies: Does not bruise/bleed easily. Psychiatric/Behavioral: Negative for depression. Ht 1.6 m (5' 3") | Wt 67.4 kg (148 lb 9.6 oz) | BMI 26.32 kg/m NAD, AAOx3, Breathing non-labored AP: Biliary Carcinoma Ureteral obstruction Plan on left ureteral stent removal/repacement and treatment as indicated. Follow up will depend on degree of stent encrustation. Pedro Green DO 04/27/2019 documented in this e ncounter Miscellaneous Notes Op Note - Pedro Green DO - 04/27/2019 8:52 AM PDTOperative Note: Pre-operative Diagnosis: ureteral obstruction Post-operative Diagnosis: Same Procedure(s): cystoscopy, left ureteral stent removal, left retrograde pyelogram, left ure teral stent placement Surgeon: Pedro Green DO Quality Manager(s): SWETA Anesthesia: General LMA Estimated Blood Loss: <10 cc Other: Not applicable Indications: See pre-operative history and physical. Findings: See dictation Complications: None Specimen: none Description: After informed consent was obtained from the patient, the patient was brought back to the o perative suite and placed on the operating table. After general anesthetic was administered and achieved, she was prepped and draped in usual sterile fashion in dorsal lithotomy posit ion and preoperative pause was performed. Following a preoperative pause, 21.5-Estonian cystoscopic sheath with 30-degree lens was inse rted transurethrally under direct visualization. Upon entry of the bladder, panendoscopy wa s performed revealing normal urinary bladder with a minimally encrusted stent emanating from the left ureteral orifice. At this point, stent was grasped, withdrawn to the urethral meatus, it was then cannulated with hydrophilic wire, which was placed to the upper collecting system under fluoroscopic gu idance. The stent was then removed, leaving the wire in place. Next, the cystoscope was re inserted adjacent to the wire. The ureteral orifice was cannulated adjacent to the wire and retrograde pyelogram was performed confirming an obstruction within the distal ureter limi ting contrast injection beyond the pelvic brim. At this point, the scope was removed and re inserted over top of the wire and was used to guide placement of the 7-Estonian x 24 cm ureter al stent without strings attached. This was noted to coil nicely proximally and distally up on removal of the wire. Bladder was drained, the scope was removed. The patient was transf erred back to recovery in stable condition. She tolerated the procedure well. Disposition: Stable to PACU Pedro Green DO 04/27/2019 documented in this e ncounter Plan of Treatment +--------+---------+ + + + | Date | Type | Specialty | Care Team | Description | +--------+---------+ + + + | 10/29/ | Office | Urology | Pedro Green, | | | 2019 | Visit | | DO [address] | | | | | | [place] [address] | | | | | | [phone] | | | | | | | [...] +---+--------+ documented in this encounter Results BG C-Arm (04/27/2019 10:26 AM PDT) + + | [...]
--- OUTSIDE RECORDS SUMMARY | ~2019-10-19 | XMS | Encounter Summary ---
Demographics + + + | Address | [address] | | | [place] [address] | + + + | Home Phone [...] + + | Author | [facility] | | | and [place] | + + + | Organization | [facility] | | | and [place] | + + + | Address | Unknown | + + + | Phone | Unavailable | + + + Support + + + + + | Name | Relationship | Address | Phone | + + + + + | Poncho Oquendo | ECON | [address] | | | | | [place] | | | | | [address] | | + + + + + | Marta Upton | ECON | [place] | | | | | [address] | | + + + + + [...] Required | | Cholangiocar | [address] | Services [address] | | | | | cinoma (HCC) | [place] | [address] | | | | | | [place], [place] | [place], | | | | | | [address] | [place] [address] | | | | | | Phone: | Phone: | | | | | | [phone] | [phone] | | | | | | Fax: | Fax: | | | | | | [phone] | [phone] | +--------+ + + + + + Encounter Details +--------+ + + + + | Date | Type | Department | Care Team | Description | +--------+ + + + + | 07/02/ | Orders Only | [facility] | Marcelina Johnson, | Cholangiocarcinoma | | 2015 | | MED CTR CHEMO | RN | ([facility]LY [facility]) (Primary Dx) | | | | INFUSION [address] | | | | | [address] [place], | | | | | | [place] [address] | | | | | | [phone] | | | +--------+ + + + [...] [address] | | | | | | [place] [address] | | | | | | [phone] | | | | | | | | +--------+---------+ + + + + + +--------+ + + | Name | Type | Priori | Associated Diagnoses | Order Schedule | | | | ty | | | + + +--------+ + + | Ambulatory referral | Outpatient | Routin | Cholangiocarcinoma | Ordered: 07/02/2014 | | to Nutrition | Referral | e | (HCC) | | | Services | | | | | + + +--------+ + + documented as of this encounter Visit Diagnoses + + | Diagnosis | + + | 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
--- OUTSIDE RECORDS SUMMARY | ~2019-10-19 | XMS | Encounter Summary ---
Demographics + + + | Address | [address] | | | [place] [address] | + + + | Home Phone [...] Team Providers + +------+ + | Care Gunner'S Mate M Name | Role | Phone | + [...] Mailcode: | | | | | | [place], [place] | [facility] | | | | | | [address] | for Health | | | | | | Phone: | and Healing, | | | | | | [phone] | Building 1, | | | | | | Fax: | 7th Floor | | | | | | [phone] | [place], [place] | | | | | | | [address] | | | | | | | Phone: | | | | | | | [phone] | | | | | | | Fax: | | | | | | | [phone] | +--------+--------+ + + + + Encounter Details +--------+---------+ + + + | Date | Type | Department | Care Team | Description | +--------+---------+ + + + | 05/17/ | Office | Hematology/Medical | Elva Grey, | Gallbladder cancer | | 2013 | Visit | Oncology at [facility] | [address] | (HCC) (Primary Dx); | | | | [address] | [address] | Post-operative pain | | | | Mailcode: CH7 | [place] [address] | | | | | [facility] | [phone] | | | | | and Healing, | | | | | | Building 1, | | | | | | Floor [place], [place] | | | | | | [address] | | | | | | [phone] | | | +--------+---------+ + + + [...] + + + | Blood Pressure | 99/61 | 05/17/2012 3:57 PM | | | | | PDT | | + + + + + | Pulse | 80 | 05/17/2012 3:57 PM | | | | | PDT | | + + + + + | Temperature | 36.7 C (98 F) | 05/17/2012 3:57 PM | | | | | PDT | | + + + + + | Respiratory Rate | 14 | 05/17/2012 3:57 PM | | | | | PDT | | + + + + + | Oxygen Saturation | 98% | 05/17/2012 3:57 PM | | | | | PDT | | + + + + + | Inhaled Oxygen | - | - | | | Concentration | | | | + + + + + | Weight | 78.4 kg (172 lb 12.8 | 05/17/2012 3:57 PM | | | | oz) | PDT | | + + + + + | Height | 160 cm (5' 3") | 05/17/2012 3:57 PM | | | | | PDT | | + + + + + | Body Mass Index | 30.61 | 05/17/2012 3:57 PM | | | | | PDT | | + + + + + documented in this encounter Progress Notes Diandra Gross Md - 05/17/2012 11:35 AM PDT Medical Oncology Clinic New Patient Consultation PCP: Prudencio Isaac MD Referring Physician: Tai Stanton MD Diagnosis: gallbladder cancer HPI: Ms. Upton is a pleasant 51yo with minimal medical history who presented to a local ER in March with fatigue, nausea and pruritis. She had imaging showing a large amount of gall stones and she underwent a cholecystectomy on 03/29/12 and an intramural mass in the gallblad jose was found. 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 She was then referred to Dr. Kalee pope who performed surgical staging. On 04/29/12 she underwent a diagnostic laparoscopy wi th biopsies, partial segment 4B and 5 liver resection (gallbladder fossa with en bloc portal lymphadenectomy). Pathology demonstrated carcinoma in 2 of [address] then demonstr ated no additional disease, making her T2N1M0, or stage IIIB. She comes to clinic today to discuss adjuvant treatment options. She is feeling overall well since her surgery. She was seen in the surgery clinic today an d was found to have a seroma associated with the surgical scar which was drained and packed. She now has some ongoing drainage. She has some abdominal/incisional pain. Good appetite. Fatigued today from the long drive. ROS: Constitutional: + fatigue, - fevers, - night sweats, - weight loss Skin: - rash Eyes/Ears/Nose/Mouth/Throat: - dysphagia, - oral lesions Cardiovascular: - chest pain, - LE swelling, -palpatations Respiratory: - dyspnea, + cough Gastrointestinal : + abdominal pain, - loose stools, - nausea, - vomiting, - constipation Genitourinary: - hematuria, - dysuria, - hesitancy, - urgency, - incontinence Musculoskeletal: - joint pain, - muscle cramps Hematologic/Lymphatic: - bleeding, -unusual bruising Neurologic: - numbness, - tingling, - focal weakness All other ROS negative. Past Medical History: Past Medical History Diagnosis Date Chronic back pain greater than 3 months duration Social History: History Social History Marital Status: Single Spouse Name: N/A Number of Children: N/A Years of Education: N/A Occupational History Not on file. Social History Main Topics Smoking status: Former Smoker -- 0.5 packs/day for 25 years Types: Cigarettes Quit date: 02/14/2006 Smokeless tobacco: Never Used Alcohol Use: 0.5 oz/week 1 Glasses of wine per week 2-3 glasses of wine per month. Drug Use: No Sexually Active: Yes Other Topics Concern Not on file Social History Narrative Pt has SO. Lives in [facility]. 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 Likes to camp, entertain. Family History: Family History Problem Relation Diabetes Father Coronary Artery Disease Father Current Medications: Current Outpatient Prescriptions Medication Sig acetaminophen 500 mg Oral tablet Take 1 Tab by mouth every four hours as needed for mod erate pain. DOCUSATE CALCIUM (STOOL SOFTENER ORAL) Take by mouth. gabapentin 300 mg Oral capsule Take 1 Cap by mouth three times daily. Indications: POST OPERATIVE ACUTE PAIN lidocaine 5 %(700 mg/patch) Topical Adhesive Patch, Medicated Apply 1 Patch to skin onc e daily. Apply patch to most painful area; Patch may remain in place for up to 12 hours in a ny 24-hour period. lidocaine 5 %(700 mg/patch) Topical Adhesive Patch, Medicated Apply 1 Patch to skin miguel ángel ry twenty-four hours. Apply patch to most painful area; Patch may remain in place for up to 12 hours in any 24-hour period. ondansetron ODT 4 mg Oral tablet,disintegrating Take 1 Tab by mouth every twelve hours as needed. oxyCODONE, immediate release, 5 mg Oral tablet Take 1-3 Tabs by mouth every six hours a s needed for severe pain. oxyCODONE, immediate release, 5 mg Oral tablet Take 1-4 Tabs by mouth every three hours as needed for severe pain. polyethylene glycol 17 gram/dose Oral Powder Take 17 g by mouth once daily. senna-docusate 8.6-50 mg Oral tablet Take 1 Tab by mouth two times daily. Stop taking i f having loose bowel movements. Indications: CONSTIPATION Allergies: Review of patient's allergies indicates no known allergies. Exam: ECO-1 BP 99/61 | Pulse 80 | Temp (Src) 36.7 C (98 F) (Forehead) | RR 14 | Ht 1.6 m (5' 3") | Wt 78.382 kg (172 lb 12.8 oz) | SpO2 98% | BMI 30.61 kg/(m^2) Gen: WDWN, NAD. Fatigued appearing HEENT: sclera anicteric, MMM, OP clear. Neck: Supple, no masses, no LAD CV: RRR, no murmurs appreciated Pulm: CTA bilat. No crackles or wheezes noted. Abd: healing abdominal incision with gauze over right upper portion of wound, draing some serous fluid. Abd otherwise soft, mild tenderness around incision. Extr: No C/C/E. Warm. Neuro: AAO x 3. CN grossly intact. Recent Labs: Recent Labs Basename 04/30/12 0642 04/29/12 0143 04/28/12 1434 WBC 9.1 10.5 11.0 RBC 3.34* 3.69* 4.30 HB 9.9* 10.9* 12.8 HCT 29.1* 32.5* 37.4 PLT 113* 118* 153 NEUTROPERC -- -- -- BANDPCT -- -- -- LYMPHPERC -- -- -- MONOPERC -- -- -- BASOPERC -- -- -- EOSPERC -- -- -- Recent Labs Basename 05/04/12 0639 05/03/12 0600 05/02/12 0559 05/01/12 0603 04/30/12 0642 04/29/12 014 3 NA 140 141 141 -- -- -- K 3.8 3.2* 3.1* -- -- -- CL 104 105 104 -- -- -- BICARB 26 29 29 -- -- -- BUN 3* 3* 1* -- -- -- CR 0.51* 0.51* 0.49* -- -- -- GLU 90 94 108* -- -- -- CA 8.2* 7.8* 8.0* -- -- -- AST -- -- -- 54* 97* 135* ALT -- -- -- 68* 89* 111* AP -- -- -- 62 59 58 TBILI -- -- -- 0.5 0.7 1.0 TP -- -- -- 5.0* 4.6* 4.4* ALB 2.5* 2.2* 2.2* -- -- -- CEA 1.1 CA 19-9 10 INR 1.13 Path: 04/28/12 Final Pathologic Diagnosis: A: Right [...] which supports a primary gallbladder malignancy. Imaging: CT 04/12/12: FINDINGS: CHEST: Heart is normal in [...] of residual or metastatic disease following cholecystectomy. Impression and Recommendations: 51yo with T2N1M0 gallbladder cancer, s/p R0 resection, here for consideration of adjuvant t herapy. We discussed with the patient and her the prognosis of this tumor, with a d oubling of 5 year overall survival (approximately 20% to 40%) with the addition of adjuvant concurrent capecitabine and RT based on nomograms developed at [facility] based on SEER database. As there is no standard adjuvant regimen for this disease we have followed the regimen receloreto fitzgerald studied in the completed S0809 trial. This is Kingfisher/Cap for 4 cycles, then restaging and chemoradiation with Cape as below: Capecitabine 750mg/m2 BID days 1-14 Gemcitabine 1000mg/m2 IV days 1,8 Every 21 days for 4 cycles Followed by: Capecitabine 665mg/m2 BID concurrent with RT She is currently only 3 weeks out from surgery and not yet ready for chemotherapy. She is from the [facility] and would like to get therapy closer to home. She states that she l oves closest to the [facility] and would like a referral to jenise Lopez we will arrange. Patient was seen and discussed with Dr. Grey, who agrees with the impression and recomme ndations. Diandra Gross MD Fellow, Hematology and Medical Oncology Attending Statement: I personally saw Aura Upton and have repeated the pertinent portions of the history a nd physical exam. I agree with the findings documented above and have edited the note. The patient is seen in consultation at the request of Dr. Stanton for resected gallbladder cancer. Outside records were reviewed and are summarized above. CT imaging was personally reviewed, agree with report. Agree with fellow's assessment and plan above. - We discussed the diagnosis and stage of the disease, the standard treatment recommendatio n which includes adjuvant therapy. Her prognosis was discussed including the potential bene fit of adjuvant therapy. Plan: Specific recommendations for adjuvant chemotherapy and chemoradiotherapy given, will refer locally. F/U: Prn, per patient preference documented in this encou nter Miscellaneous Notes Scan - Other, Faculty - 09/22/2012 11:01 AM PDTElectronically signed by Faculty Other at 11:01 AM PDTScan - Other, Faculty - 09/18/2012 10:36 AM PDT can - Other, Faculty - 05/23/2012 4:14 PM PDTElec tronically signed by Faculty Other at 05/23/2012 4:14 PM PDTdocumented in this encounter Plan of Treatment Not on filedocumented as of this encounter Visit Diagnoses + + | Diagnosis | + + | Gallbladder cancer (HCC) - Primary Malignant neoplasm of gallbladder | + + | Post-operative pain Other acute postoperative pain | + + documented in this encounter
--- OUTSIDE RECORDS SUMMARY | ~2019-10-19 | XMS | Encounter Summary ---
Demographics + + + | Address | [address] | | | [place] [address] | + + + | Home Phone [...] | Author | [facility] | | | and [place] | + + + | Organization | [facility] | | | and [place] | + + + | Address | Unknown | + + + | Phone | Unavailable | + + + Support + + + + + | Name | Relationship | Address | Phone | + + + + + | Poncho Oquendo | ECON | [address] | | | | | [place] | | | | | [address] | | + + + + + | Marta Upton | ECON | [place] | | | | | [address] | | + + + + + Care Team Providers + +------+ + | Care Network Control Technician Name | Role | Phone | + +------+ + | No, Physician | PCP | Unavailable | + +------+ + Reason for Visit + +--------+ + | Reason | Onset | Comments | | | Date | | + +--------+ + | Care Coordination | 05/20/ | | | | 2020 | | + +--------+ + Encounter Details +--------+ + + + + | Date | Type | Department | Care Team | Description | +--------+ + + + + | 05/20/ | Telephone | [facility] | Reinaldo, | Care Coordination | | 2019 | | MED [facility] MED[facility] | Epifanio Soler MD [address] | | | | | ONCOLOGY CLIN[address] | [facility] | | | | | [address] | [address] [place], [place] | | | | | [place] [address] | [address] | | | | | [phone] | | | +--------+ + + + [...] encounter Miscellaneous Notes Telephone Encounter - Sonia Renae, DANIKA - 05/21/2019 3:41 PM PDTSerenity case manag er given contact information for [facility] where patient reportedly sees Dr Najera. elephone Encount er - Noble Kent - 05/21/2019 3:30 PM PDTSerenity from [employer] called to advise cammy barnhart that she is the pts r d manager if there is anything he can think of that she can do to assist patient. Her # is [phone] signed by Noble Kent at 05/21/2019 3:32 PM PDTdoc umented in this encounter Plan of Treatment +--------+---------+ + + + | Date | Type | Specialty | Care Team | Description | +--------+---------+ + + + | 10/29/ | Office | Urology | Pedro Green, | | 2019 | Visit | | DO Vaishali [address] | | | | | | [place] [address] | | | | | | [phone] | | | | | | | | +--------+---------+ + + + documented as of this encounter Visit Diagnoses Not on filedocumented in this encounter"
--- OUTSIDE RECORDS SUMMARY | ~2019-10-19 | XMS | Encounter Summary ---
Demographics + + + | Address | [address] | | | [place] [address] | + + + | Home Phone [...] + | Poncho Oquendo | ECON | [address] | | | | | [place] | | | | | [address] | | + + + + + | Marta Upton | ECON | [place] | | | | | [address] | | + + + + + Care Team Providers + +------+ + | Care Monument Mason Name | Role | Phone | + +------+ + | Valeriy Carmona DO | TAWNYA | | + +------+ + Encounter Details +--------+ + + + + | Date | Type | Department | Care Team | Description | +--------+ + + + + | 06/08/ | Documentati | [facility] | Reinaldo, | | | 2018 | on | [facility] | Epifanio Soler MD [address] | | | | | ONCOLOGY CLIN[address] | [facility] | | | | | [address] | [address] [place], [place] | | | | | [place] [address] | [address] | | | | | [phone] | | | +--------+ + + + [...] [address] | | | | | | [place] [address] | | | | | | [phone] | | | | | | | | +--------+---------+ + + + documented as of this encounter Visit Diagnoses Not on filedocumented in this encounter"
--- OUTSIDE RECORDS SUMMARY | ~2019-10-19 | XMS | Encounter Summary ---
Demographics + + + | Address | [address] | | | [place] [address] | + + + | Home Phone [...] + + + | Author | [facility] | | | and [place] | + + + | Organization | [facility] | | | and [place] | + + + | Address | Unknown | + + + | Phone | Unavailable | + + + Support + + + + + | Name | Relationship | Address | Phone | + + + + + | Poncho Oquendo | ECON | [address] | | | | | [place] | | | | | [address] | | + + + + + | Marta Upton | ECON | [place] | | | | | [address] | | + + + + + Care Team Providers + +------+ + | Care Pheresis Nurse Name | Role | Phone | + [...] | Procedures | [address] | [place] [address] | | | | | [place] OFFICE | OBED, | Phone: | | | | | OUTPATIENT | [place] [address] | [phone] | | | | | VISIT 25 | | Fax: | | | | | MINUTES | | [phone] | +--------+--------+ + + + + Encounter Details +--------+ + + + + | Date | Type | Department | Care Team | Description | +--------+ + + + + | 02/02/ | Hospital | [facility] | Ángela Glass | Gallbladder cancer, | | 2017 | Encounter | MED [facility] | Birdie, PharmD [address] | carcinoma (HCC) | | | | ONCOLOGY CLINIC [address] | [address]OSTER | (Primary Dx) | | | | W [facility] | [place] [address] | | | | | [place] [address] | [phone] | | | | | [phone] | | | +--------+ + + + [...] original. Clinical Oncology Pharmacy Services Progress Note [facility] Pt. Name/Age/: Aura Upton 56 y.o. 1960 CSN: [id number] Date of service: 02/02/2017 Provider: Ángela Glass PharmD Identifying Statement: Aura Upton is a 56 y.o. female from [address] [place] [address], The encounter diagnosis was Gallbladder cancer, carcinoma [...] 2. Follow up with Dr Najera at [facility] in [place], [place]. Subjective: The patient chart and medications [...] [address] | | | | | | [place] [address] | | | | | | [phone] | | | | | | | | +--------+---------+ + + + documented as of this encounter Visit Diagnoses + + | Diagnosis | + + | Gallbladder cancer, 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
--- OUTSIDE RECORDS SUMMARY | ~2019-10-19 | XMS | Encounter Summary ---
Demographics + + + | Address | [address] | | | [place] [address] | + + + | Home Phone | | + + + | Preferred Language | Unknown | + + + | Marital Status | | + + + | Protestant Affiliation | Unknown | + + + | Race | White | + + + | Ethnic Group | Not or | + + + Author + + + | Author | [facility] | | | and [place] | + + + | Organization | [facility] | | | and [place] | + + + | Address | Unknown | + + + | Phone | Unavailable | + + + Support + + + + + | Name | Relationship | Address | Phone | + + + + + | Poncho Oquendo | ECON | [address] | | | | | [place] | | | | | [address] | | + + + + + | Marta Upton | ECON | [place] | | | | | [address] | | + + + + + Care Team Providers + +------+ + | Care Sex Therapist Name | Role | Phone | + +------+ + | Valeriy Carmona DO | PCP | | + +------+ + Reason for Visit +--------+--------+ + | Reason | Onset | Comments | | | Date | | +--------+--------+ + | Other | 12/10/ | | | | 2014 | | +--------+--------+ + Encounter Details +--------+ + + + + | Date | Type | Department | Care Team | Description | +--------+ + + + + | 12/10/ | Telephone | [facility] | Reinaldo, | Other | | 2014 | | MED CTR MEDICAL | Epifanio Soler MD [address] | | | | | ONCOLOGY CLIN[address] | [facility] | | | | | [address] | [address] [place], [place] | | | | | [place] [address] | [address] | | | | | [phone] | | | +--------+ + + + [...] Telephone Encounter - Sonia Renae RN - 12/10/2014 1:49 PM PDTPatient notified vi a voice message that Dr. Najera is agreeable to this, has contrast and will take to [facility] tomorrow. elep bre Encounter - Debra Tran - 12/10/2014 1:10 PM PDTMaclementina is having a CT chest, abdomen and pelvis...would Dr. Najera be able to bring the contrast to her and she will pick it up in [place]. Please ask him. Thank you. documented in this encounter Plan of Treatment +--------+---------+ + + + | Date | Type | Specialty | Care Team | Description | +--------+---------+ + + + | 10/29/ | Office | Urology | Pedro Green, | | | 2019 | Visit | | DO Vaishali [address] | | | | | | [place] [address] | | | | | | [phone] | | | | | | | | +--------+---------+ + + + documented as of this encounter Visit Diagnoses Not on filedocumented in this encounter"
--- OUTSIDE RECORDS SUMMARY | ~2019-10-19 | XMS | Encounter Summary ---
Demographics + + + | Address | [address] | | | [place] [address] | + + + | Home Phone [...] | [facility] | | | and [place] | + + + | Organization | [facility] | | | and [place] | + + + | Address | Unknown | + + + | Phone | Unavailable | + + + Support + + + + + | Name | Relationship | Address | Phone | + + + + + | Poncho Oquendo | ECON | [address] | | | | | [place] | | | | | [address] | | + + + + + | Marta Upton | ECON | [place] | | | | | [address] | | + + + + + Care Team Providers + +------+ + | Care Child Therapist Name | Role | Phone | [...] MEDICAL | Epifanio Soler MD [address] | | | | | ONCOLOGY CLINIC [address] | [facility] | | | | | [address] | [address] [place] | | | | | [place] [address] | [address] | | | | | [phone] | | | +--------+ + + + [...] [address] | | | | | | [place] [address] | | | | | | [phone] | | | | | | | | +--------+---------+ + + + documented as of this encounter Visit Diagnoses Not on filedocumented in this encounter"
--- OUTSIDE RECORDS SUMMARY | ~2019-10-19 | XMS | Encounter Summary ---
Demographics + + + | Address | [address] | | | [place] [address] | + + + | Home Phone [...] | Author | [facility] | | | and [place] | + + + | Organization | [facility] | | | and [place] | + + + | Address | Unknown | + + + | Phone | Unavailable | + + + Support + + + + + | Name | Relationship | Address | Phone | + + + + + | Poncho Oquendo | ECON | [address] | | | | | [place] | | | | | [address] | | + + + + + | Marta Upton | ECON | [place] | | | | | [address] | | + + + + + Care Team Providers + +------+ + | Care Fiscal Accounting Clerk Name | Role | Phone | [...] | | Personal | Reinaldo, | [address] | | | | | 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, | [place], | | | | | 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[address] | [place] [address] | | | | | neoplasm of | RICARDA LINDQUIST | Phone: | | | | | other site | [address] | [phone] | | | | | in | [place], | Fax: | | | | | gastrointest | [place] [address] | [phone] | | | | | inal tract | Phone: | | | | | | Procedures | [phone] | | | | | | CT Abdomen | Fax: | | | | | | Pelvis w | [phone] | | | | | | Contrast [...]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 | DOTTIE [place] | [address] | | | | | (HCC) | [place] | RIC[place]DA LINDQUIST | | | | | Procedures | [address] | [address] | | | | | CO OFFICE | Phone: | [place] | | | | | OUTPATIENT | [phone] | [address] | | | | | VISIT 25 | Fax: | Phone: | | | | | MINUTES | [phone] | [phone] | | | | | | | Fax: | | | | | | | [phone] | +--------+--------+ + + + + Encounter Details +--------+ + + + + | Date | Type | Department | Care Team | Description | +--------+ + + + + | 03/18/ | Hospital | [facility] | [facility], | Personal history of | | 2015 | Encounter | [facility] | Epifanio Soler MD [address] | malignant neoplasm | | | | ON[facility]OGY CLINIC [facility] | [facility] | of other site in | | | | [address] [place] | [address] [place], [place] | gastrointestinal | | | | [place] [address] | [address] | tract (Primary Dx); | | | | [phone] | | Obesity; Liver | | | [...] Aura Upton is a 53-year-old woman from [place], [place] who h as 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 Tai Stanton of the [facility] April 28, 2012. ACTIVE DIAGNOSES: 1. Presentation with biliary colic in March of 2012 status post cholecystectomy and live r biopsy by Dr. Brandon Garcia March 29, 2012, pathological specimen [id number], analyzed by Dr. Bowers of [facility] and was notable for a poorly-differentiated adenoca rcinoma of the gallbladder. Liver biopsy demonstrated mild portal inflammation. 2. On April 28, 2012, she successfully underwent an R0 resection by Dr. Tai Stanton at t [facility], pathological specimen [id number] was notable for the absence of any residual carcinoma within the gallbladder bed. However, 2/8 regional ly mph nodes contained regionally metastatic disease. 3. Consultation by Dr. Elva Grey of the [facility] on May returned the recommendation for adjuvant chemoradiation therapy following [id number] as follows: Capecitabine at 750 mg/m sq [...] advanced imaging followup. documented in this encounter Miscellaneous Notes Addendum Note - Epifanio Najera MD - 03/19/2014 9:45 AM PSTEncounter addended by: Steve Najera MD on: 03/19/2014 9:45
Documentation filed: Notes SectionElectron ically signed by Epifanio Najera MD at 03/19/2014 9:45 AM PSTAddendum Note - Epifanio Patterson MD - 03/18/2014 6:46 PM PSTEncounter addended by: Epifanio Najera MD o n: 03/18/2014 18:46
Documentation filed: Orders documented in this encounter Plan of Treatment +--------+---------+ + + + | Date | Type | Specialty | Care Team | Description | +--------+---------+ + + + | 10/29/ | Office | Urology | Pedro Green, | | | 2019 | Visit | | DO [address] | | | | | | [place] [address] | | | | | | [phone] | | | | | | | [...] Frost MD Electronically signed: 09/16/2014 3:59 PM | | [...] [address] | [place] | [phone] | | [facility] | | [address] | | | - LABORATORY | | [...] [place] | | | | | | [address] | | | | + + + [...] [address] | [place] [address] | [phone] | + + + + + [place] [...] | | | | | | [place] [address] | | | | + + + [...] [address] | [place] [address] | [phone] | + + + + + CEA (09/16/2014 11:18 AM PDT) + +-------+ + + + | Component | Value | Ref Range | Performed | Pathologist | | | | | At | Signature | + +-------+ + + + | CEA | 0.9 | 0.0 - 10.0 | [facility] | | | | | ng/mL | [facility] | | [...] [address] | [place] | [phone] | | [facility] | | [address] | | | - LABORATORY | | [...] [address] | [place] | [phone] | | [facility] | | [address] | | | - LABORATORY | | [...] | | | | mmol/L | [facility] | | | | | | MEDICAL | | | | | | CENTER - | | | | | | LABORATORY | | + + + + + + | K | 3.8 | 3.5 - 5.1 | [facility] | | | | | mmol/L | [facility] | | | | [...] mL/min/1.73m2 | [facility] | | | Filipino | RATE,ESTIMATED | | MEDICAL | | | | mL/min/1.07o2Ufij than | | CENTER - | | [...] 0.5 | 0.1 - 1.5 mg/dL | [facility] | | | Total | | | [...] ST. | [address] | [place] | [phone] | | [facility] | | [address] | | | - LABORATORY | | | | + + + + + CBC with Differential (09/16/2014 11:18 AM PDT) + +--------+ + + + | Component | Value | Ref Range | Performed | Pathologist | | | | | At | Signature | + +--------+ + + + | White Blood | 5.6 | 4.0 - 11.0 K/uL | [facility] | | | Cells | | | [facility] | | | | | | MEDICAL | | | | | | CENTER - | | | | | | LABORATORY | | + +--------+ + + + | Red Blood | 4.28 | 3.70 - 5.20 | [...] | | | Eosinophils | | | [facility] | | | [...] [address] | [place] | [phone] | | [facility] | | [address] | | | - LABORATORY | | [...] + | [facility] | [address] | [place] | [phone] | | [facility] | | [address] | | | - LABORATORY | | | | + + + + + | [facility] | [address] | [place], [place] | | | [facility] | | [address] | | | - LABORATORY [...] eGFR, | >60Comment: GLOMERULAR | >=60 | [facility] | | | non- | FILTRATION | mL/min/1.73m2 | [facility] | | | Filipino | RATE,ESTIMATED | | MEDICAL | | | | mL/min/1.33f8Xucl than | | CENTER - | | [...] 3.8 | 3.2 - 5.0 g/dL | [facility] | | | | | | [facility] | | | | | | MEDICAL [...] [address] | [place] | [phone] | | [facility] | | [address] | | | - LABORATORY | | | | + + + + + | [facility] | [address] | [place] | | | [facility] | | [address], [facility] | | | - [...] | | | | ng/mL | [facility] | | | | | | [facility] | | | | | | CENTER [...] + | [facility] | [address] | [place], [place] | [phone] | | [facility] | | [address] | | | - LABORATORY | | | | + + + + + | [facility] | [address] | [place], [place] | | | [facility] | | [address], [facility] | | | - [...] | | | Cells | | | . [facility] | | [...] [address] | [place] | [phone] | | [facility] | | [address] | | | - LABORATORY | | | | + + + + + | [facility] [address] | [address] | [place] | | | [facility] | | [address], [facility] | | | - [...] | | | | | ing Performed: [facility], [address] | | | | | | [address], [place], | | | | | | [place] [address] | | | | + + + [...] [address] | [place] [address] | [phone] | + + + + + documented [...]
--- OUTSIDE RECORDS SUMMARY | ~2019-10-19 | XMS | Encounter Summary ---
Demographics + + + | Address | [address] | | | [place] [address] | + + + | Home Phone [...] Team Providers + +------+ + | Care Testing Consultant Name | Role | Phone | [...] (HCC) | Surendra Carreon | Velma [facility] | | | | | Procedures | Rd | Hospital, | | | | | CT CHEST, | [place], [place] | 10th Floor | | | | | ABDOMEN & | [address] | [place], [place] | | | | | [address] | Phone: | [phone] | | | | | CONTRAST | [phone] | Phone: | | | | | [address], [address] | Fax: | [phone] | | | | | | [phone] | Fax: | | | | | | | [phone] | +--------+--------+ + + + + Reason [...] | | | | CT CHEST, | [place], [place] | 10th Floor | | | | | ABDOMEN & | | [place], [place] | | | | | [address] | Phone: | [phone] | | | | | CONTRAST | [phone] | Phone: | | | | | [address], [address] | Fax: | [phone] | | | | | | [phone] | Fax: | | | | | | | [phone] | +--------+--------+ + + + + Encounter Details +--------+ + + + + | Date | Type | Department | Care Team | Description | +--------+ + + + + | 04/12/ | Hospital | Radiology/Imaging | | | | 2012 | Encounter | Lab at [facility] [address] | | | | | | [facility] | | | | | [facility], | | | | | | [address] | | | | | | Floor [place], [place] | | | | | | [address] | | | | | | [phone] | | | +--------+ + + + [...] + + documented as of this encounter Procedure Dirk Benitez, Faculty - 04/28/2012 2:26 PM PDTAssociated Order(s): PROCEDURE NOTEElectronically s igned by Faculty Other at 04/28/2012 2:26 PM PDTdocumented in this encounter Plan of [...] + | Transcriptions | + + | Yamila Benitez - 04/28/2012 2:26 PM PDT | + [...] Michael | | | | | | RTimmy Gallo M.D. I | | | | [...] | | + +---------+ + + | [facility] DEPARTMENT OF | | | | | RADIOLOGY | | | | + +---------+ + + documented in this encounter Visit Diagnoses + + | Diagnosis | + + | Gallbladder cancer (HCC) Malignant neoplasm of gallbladder | + + documented in this encounter"
--- OUTSIDE RECORDS SUMMARY | ~2019-10-19 | XMS | Encounter Summary ---
Demographics + + + | Address | [address] | | | [place] [address] | + + + | Home Phone | | + + + | Preferred Language | Unknown | + + + | Marital Status | | + + + | Samaritan Affiliation | Unknown | + + + | Race | White | + + + | Ethnic Group | Not or | + + + Author + + + | Author | [facility] | | | and [place] | + + + | Organization | [facility] | | | and [place] | + + + | Address | Unknown | + + + | Phone | Unavailable | + + + Support + + + + + | Name | Relationship | Address | Phone | + + + + + | Poncho Oquendo | ECON | [address] | | | | | [place] | | | | | [address] | | + + + + + | Marta Upton | ECON | [place] | | | | | [address] | | + + + + + Care Team Providers + +------+ + | Care Body Mechanic Apprentice Name | Role | Phone | + +------+ + | Valeriy Carmona DO | TAWNYA | | + +------+ + Encounter Details +--------+ + + + + | Date | Type | Department | Care Team | Description | +--------+ + + + + | 03/05/ | Hospital | [facility] | Reinaldo, | Mass of breast, | | 2017 | Encounter | [facility] CTR ULTRASOUND | Epifanio Soler MD [address] | right | | | | [address] | [facility] | | | | | [place], [place] | [address] [place], [place] | | | | | [address] | [address] | | | | | [phone] | | | | | | | [...] [address] | | | | | | [place] [address] | | | | | | [phone] | | | | | | | [...] BREAST LIMITED RIGHT 03/05/2016 1:00 PM EXAM: [facility] | [facility] | [...] | interval. Dictated and Signed by: Geremias Guteirres MD | | | Electronically signed: 03/05/2016 2:50 PM | | + + + + + | Procedure Note | + + | Edmundo, Rad Results In - 03/05/2016 2:53 PM PST US BREAST LIMITED RIGHT 03/05/2016 1:00 | | PMEXAM: [facility] TOMOSYN DIAGNOSTIC RIGHT dated 03/05/2016 12:50 PMHISTORY:EVALUATE [...]
--- OUTSIDE RECORDS SUMMARY | ~2019-10-19 | XMS | Encounter Summary ---
Demographics + + + | Address | [address] | | | [place] [address] | + + + | Home Phone [...] Author | [facility] | | | and [place] | + + + | Organization | [facility] | | | and [place] | + + + | Address | Unknown | + + + | Phone | Unavailable | + + + Support + + + + + | Name | Relationship | Address | Phone | + + + + + | Poncho Oquendo | ECON | [address] | | | | | [place] | | | | | [address] | | + + + + + | Marta Upton | ECON | [place] | | | | | [address] | | + + + + + Care Team Providers + +------+ + | Care Basin Cleaner Name | Role | Phone | + +------+ + | No, Physician | PCP | Unavailable | + +------+ + Reason for Visit + +--------+ + | Reason | Onset | Comments | | | Date | | + +--------+ + | Coordination Of Care | 07/03/ | | | | 2020 | | + +--------+ + Encounter Details +--------+ + + + + | Date | Type | Department | Care Team | Description | +--------+ + + + + | 07/03/ | Telephone | [facility] | Reinaldo | Coordination Of Care | | 2019 | | MED [facility] MEDICAL | Epifanio Soler MD [address] | | | | | ONCOLOGY CLINIC [address] | [facility] | | | | | [address] [place] | [address] [place], [place] | | | | | [place] [address] | [id number] | | | | | [phone] | | | +--------+ + + + [...] this encounter Miscellaneous Notes Telephone Encounter - Marcelina Johnson RN - 07/04/2019 1:47 PM PDTI called Aura back an d explained that because of our large patient volume tomorrow (31 patients) we would not be able to place a new cold cap every 30 min as she is requesting. She is understanding.Electro nically signed by Marcelina Johnson RN at 07/04/2019 1:48 PM PDTTelephone Encounter - Tila Cooper - 07/04/2019 10:50 AM Desi called and requested to speak with Dr[facility] about put cold caps on for her before and during treatment please advise thank y ou documented in this en counter Plan of Treatment +--------+---------+ + + + | Date | Type | Specialty | Care Team | Description | +--------+---------+ + + + | 10/29/ | Office | Urology | Pedro Green, | | 2019 | Visit | | DO [address] | | | | | | [place] [address] | | | | | | [phone] | | | | | | | | +--------+---------+ + + + documented as of this encounter Visit Diagnoses Not on filedocumented in this encounter"
--- OUTSIDE RECORDS SUMMARY | ~2019-10-19 | XMS | Encounter Summary ---
Demographics + + + | Address | [address] | | | [place] [address] | + + + | Home Phone [...] Author | [facility] | | | and [place] | + + + | Organization | [facility] | | | and [place] | + + + | Address | Unknown | + + + | Phone | Unavailable | + + + Support + + + + + | Name | Relationship | Address | Phone | + + + + + | Poncho Oquendo | ECON | [address] | | | | | [place] | | | | | [address] | | + + + + + | Marta Upton | ECON | [place] | | | | | [address] | | + + + + + Care Team Providers + +------+ + | Care Front End Application Developer Name | Role | Phone | [...] | | Carcinoma | Reinaldo, | [address] | | | | | of opal | Epifanio Soler, | [place], | | | | | bladder | [address] | [place] [address] | | | | | (HCC) | [place]QU[place] | Phone: | | | | | Procedures | [address] | [phone] | | | | | CT Chest | [place], | Fax: | | | | | Abdomen | [place] [address] | [phone] | | | | | Pelvis w | Phone: | | | | | | Contrast | [phone] | | | | | | | Fax: | | | | | | | [phone] | | +--------+--------+ + + + + Encounter Details +--------+ + + + + | Date | Type | Department | Care Team | Description | +--------+ + + + + | 12/09/ | Orders Only | [facility] | Reinaldo, | Carcinoma of gall | | 2015 | | [facility] | Epifanio Soler MD [address] | bladder (HCC) | | | | [facility] CLIN[facility] [address] | [address] [place] [address] [facility] | (Primary Dx) | | | | [address] | [address] [place] | | | | | [place] [address] | [address] | | | | | [phone] | | | +--------+ + + + [...] [facility] | | | | | | [place] [address] | | | | | | [phone] | | | | | | | | +--------+---------+ + + + documented as of this encounter Results CT Chest Abdomen Pelvis w Contrast (12/17/2014 2:40 PM PST) + + | Specimen | + + | | + + + + + | Narrative | Performed At | + + + | CT CHEST ABDOMEN PELVIS W CONTRAST . 12/17/2014 2:34 PM | [facility] | | HISTORY: Evaluate metastatic cholangiocarcinoma afer a course of | | | treatment COMPARISON: CT abdomen pelvis 09/16/2014 and | | | CT chest abdomen pelvis 05/22/2014 TECHNIQUE: Axial images were | | | obtained from the base of the neck to the inferior pelvis following | | | the uneventful intravenous administration of 100 mL Omnipaque 350 | | | contrast. Oral contrast was administered. Multiplanar reformatted | | | images created. RADIATION DOSE: DLP 815 mGy-cm FINDINGS: | | | CHEST: The structures at the base of the neck are unremarkable. No | | | pathologically enlarged mediastinal lymph nodes are evident. The | | | esophagus is within normal limits. The trachea is within normal | | | limits. The aorta and branching vessels are within normal limits. | | | The pulmonary arterial structures are within normal limits. Catheter | | | from indwelling medication port in the left upper chest seen extending | | | into the superior vena cava. The heart is within normal limits, | | | without pericardial effusion. Lungs are clear, without pulmonary | | | nodule or other abnormal opacification. No pleural effusion or | | | pneumothorax is seen. ABDOMEN/PELVIS: Left-sided Bochdalek | | | hernia again seen, with fat extending into the intrathoracic space | | | posteriorly. Gallbladder is surgically absent. Multiple surgical | | | clips seen at the inferior margin of the liver extending towards the | | | estevan hepatis. Liver is otherwise unremarkable in appearance. | | | There is prominence of the common bile duct, measuring up to 8mm in | | | diameter, not unexpected post cholecystectomy. There is atrophic | | | change of the pancreas, which is otherwise unremarkable in | | | appearance. Solitary calcified granuloma again seen in the spleen, | | | which is otherwise unremarkable. Adrenal glands are within normal | | | limits. Both kidneys are within normal limits, without stone or | | | hydronephrosis. No ureteral abnormalities. The stomach and | | | duodenum are within normal limits. Note is made of multiple small | | | bowel loops closely applied to the anterior abdominal wall, likely | | | related to adhesions. Small bowel is otherwise unremarkable. There | | | is diverticulosis of the colon, without evidence of wall thickening | | | or inflammatory change to suggest diverticulitis. The ileocecal | | | junction is within normal limits. The appendix is within normal | | | limits. There is no free intraperitoneal air or fluid. No | | | pathologically enlarged abdominal or pelvic lymph nodes. There is | | | scattered calcification of the abdominal aorta. Abdominal and pelvic | | | vasculature is otherwise unremarkable. The bladder is | | | unremarkable. Uterus and adnexal structures are absent, without | | | evidence of residual or recurrent abnormality. MUSCULOSKELETAL: | | | No overt lytic or blastic lesions are seen. Mild degenerative change | | | is seen at the hips. Postsurgical change seen in the midline | | | abdominal soft tissues, without evidence of complication. | | | IMPRESSION - Stable postoperative changes at the inferior aspect of | | | the liver, without evidence of recurrent malignancy. Surgically | | | absent uterus and adnexal structures, without evidence of residual or | | | recurrent abnormality. Multiple small bowel loops closely applied | | | to the anterior abdominal wall, likely related to adhesion | | | formation. Small bowel is otherwise unremarkable. Diverticulosis | | | without evidence of diverticulitis. Dictated and Signed by: Axel | | | MD Jasen Electronically signed: 12/17/2014 5:30 PM | | + + + + + | Procedure Note | + + | Edmundo, Rad Results In - 12/17/2014 5:[address] CHEST ABDOMEN PELVIS W CONTRAST . | | 12/17/2014 2:34 PM HISTORY: Evaluate metastatic cholangiocarcinoma afer a course of | | treatment COMPARISON: CT abdomen pelvis 09/16/[address] chest abdomen pelvis | | 05/22/2014 TECHNIQUE: Axial images were obtained from the base of the neck to the | | inferiorpelvis following the uneventful intravenous administration of 100 mL | | [id number] contrast. Oral contrast was administered. Multiplanar reformatted | | imagescreated.RADIATION DOSE: DLP 815 mGy-cmFINDINGS: CHEST:The structures at the base | | of the neck are unremarkable.No pathologically enlarged mediastinal lymph nodes are | | evident.The esophagus is within normal limits.The trachea is within normal limits.The | | aorta and branching vessels are within normal limits.The pulmonary arterial structures | | are within normal limits.Catheter from indwelling medication port in the left upper | | chest seen extendinginto the superior vena cava.The heart is within normal limits, | | without pericardial effusion.Lungs are clear, without pulmonary nodule or other abnormal | | opacification.No pleural effusion or pneumothorax is seen.ABDOMEN/PELVIS:Left-sided | | Bochdalek hernia again seen, with fat extending into theintrathoracic space | | posteriorly.Gallbladder is surgically absent. Multiple surgical clips seen at the | | inferiormargin of the liver extending towards the estevan hepatis. Liver is | | otherwiseunremarkable in appearance.There is prominence of the common bile duct, | | measuring up to 8mm in diameter,not unexpected post cholecystectomy.There is atrophic | | change of the pancreas, which is otherwise unremarkable inappearance.Solitary calcified | | granuloma again seen in the spleen, which is otherwiseunremarkable.Adrenal glands are | | within normal limits.Both kidneys are within normal limits, without stone or | | hydronephrosis.No ureteral abnormalities.The stomach and duodenum are within normal | | limits.Note is made of multiple small bowel loops closely applied to the | | anteriorabdominal wall, likely related to adhesions. Small bowel is | | otherwiseunremarkable.There is diverticulosis of the colon, without evidence of wall | | thickening orinflammatory change to suggest diverticulitis.The ileocecal junction is | | within normal limits.The appendix is within normal limits.There is no free | | intraperitoneal air or fluid.No pathologically enlarged abdominal or pelvic lymph | | nodes.There is scattered calcification of the abdominal aorta. Abdominal and | | pelvicvasculature is otherwise unremarkable.The bladder is unremarkable.Uterus and | | adnexal structures are absent, without evidence of residual orrecurrent | | abnormality.MUSCULOSKELETAL:No overt lytic or blastic lesions are seen. Mild | | degenerative change is seen atthe hips.Postsurgical change seen in the midline abdominal | | soft tissues, without evidenceof complication. IMPRESSION - Stable postoperative | | changes at the inferior aspect of the liver, withoutevidence of recurrent | | malignancy.Surgically absent uterus and adnexal structures, without evidence of residual | | orrecurrent abnormality.Multiple small bowel loops closely applied to the anterior | | abdominal wall,likely related to adhesion formation. Small bowel is otherwise | | unremarkable.Diverticulosis without evidence of diverticulitis.Dictated and Signed by: | | Axel Aggarwal MD Electronically signed: 12/17/2014 5:30 PM | |unremarkable. | |Adrenal glands are within normal limits. | | | |Both kidneys are within normal limits, without stone or hydronephrosis. | |No ureteral abnormalities. | | | |The stomach and duodenum are within normal limits. | |Note is made of multiple small bowel loops closely applied to the anterior | |abdominal wall, likely related to adhesions. Small bowel is otherwise | |unremarkable. | |There is diverticulosis of the colon, without evidence of wall thickening or | |inflammatory change to suggest diverticulitis. | |The ileocecal junction is within normal limits. | |The appendix is within normal limits. | | | |There is no free intraperitoneal air or fluid. | |No pathologically enlarged abdominal or pelvic lymph nodes. | |There is scattered calcification of the abdominal aorta. Abdominal and pelvic | |vasculature is otherwise unremarkable. | | | |The bladder is unremarkable. | | | |Uterus and adnexal structures are absent, without evidence of residual or | |recurrent abnormality. | | | |MUSCULOSKELETAL: | |No overt lytic or blastic lesions are seen. Mild degenerative change is seen at | |the hips. | |Postsurgical change seen in the midline abdominal soft tissues, without evidence | |of complication. | | | | | |IMPRESSION - | |Stable postoperative changes at the inferior aspect of the liver, without | |evidence of recurrent malignancy. | | | |Surgically absent uterus and adnexal structures, without evidence of residual or | |recurrent abnormality. | | | |Multiple small bowel loops closely applied to the anterior abdominal wall, | |likely related to adhesion formation. Small bowel is otherwise unremarkable. | | | |Diverticulosis without evidence of diverticulitis. | | | |Dictated and Signed by: Axel Aggarwal MD | | Electronically signed: 12/17/2014 5:30 PM | + + + +---------+ + [...]
--- OUTSIDE RECORDS SUMMARY | ~2019-10-19 | XMS | Encounter Summary ---
Demographics + + + | Address | [address] | | | [place] [address] | + + + | Home Phone [...] Team Providers + +------+ + | Care Cardroom Hand Name | Role | Phone | + +------+ + | Tomasa Wagner | PCP | | + +------+ + Reason for Visit + +--------+ + | Reason | Onset | Comments | | | Date | | + +--------+ + | Medical Records | 06/28/ | | | Release | 2014 | | + +--------+ + Encounter Details +--------+ + + + + | Date | Type | Department | Care Team | Description | +--------+ + + + + | 06/28/ | Telephone | [facility] | Elva Grey, | Medical Records | | 2015 | | Clinics at | [address] [facility] | Release | | | | [place] [address] | [facility] [address] | | | | | [facility] for | [place] [address] | | | | | Health and Healing, | [phone] | | | | | [facility] | | | | | | [place], [place] | | | | | | [address] | | | | | | [phone] | | | +--------+ + + + [...] this encounter Miscellaneous Notes Telephone Encounter - Ling May - 06/28/2014 8:43 AM PDTFaxed as requested, received c onfirmation of successful fax transmission. elephone Encounter - Chikis Willis - 06/28/2014 8:40 AM PDTRobelista with [facility] calling, stat es that pt has a second opinion appointment with them on Saturday 07/01. Requesting most recen t chart note from visit with Dr. Grey be faxed to them. Pstynxsezmaeyi s igned by Chikis Omer at 06/28/2014 8:41 AM PDTdocumented in this encounter Plan of Treatment Not on filedocumented as of this encounter Visit Diagnoses Not on filedocumented in this encounter"
--- OUTSIDE RECORDS SUMMARY | ~2019-10-19 | XMS | Encounter Summary ---
Demographics + + + | Address | [address] | | | [place] [address] | + + + | Home Phone [...] Providers + +------+ + | Care Associate Director Of Nursing Name | Role | Phone | + +------+ + | Tomasa Wagner | PCP | | + +------+ + Encounter Details +--------+ + + + + | Date | Type | Department | Care Team | Description | +--------+ + + + + | 06/09/ | Abstract | Dig[facility]ive Health | Tai Stanton, | | | 2012 | | Center at [facility] [address] | [address] [facility] | | | | | [facility] | [facility] | | | | | for Health and | [place], [place] | | | | | [facility], [place] [address] | [address] | | | | | [place], [place] | [phone] | | | | | [address] | | | | | | [phone] | | | +--------+ + + + [...]
--- OUTSIDE RECORDS SUMMARY | ~2019-10-19 | XMS | Encounter Summary ---
Demographics + + + | Address | [address] | | | [place] [address] | + + + | Home Phone [...] + | Author | [facility] | | | and [place] | + + + | Organization | [facility] | | | and [place] | + + + | Address | Unknown | + + + | Phone | Unavailable | + + + Support + + + + + | Name | Relationship | Address | Phone | + + + + + | Poncho Oquendo | ECON | [address] | | | | | [place] | | | | | [address] | | + + + + + | Marta Upton | ECON | [place] | | | | | [address] | | + + + + + Care Team Providers + +------+ + | Care File Drawer Finisher Name | Role | Phone | [...] | | Malignant | MD Louise | Reinaldo | | | | | neoplasm of | [address] | Chad Soler MD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 | [address] | [address] | | | | | (HCC) | [place] | [place] | | | | | Procedures | [address] | [address] | | | | | [place] OFFICE | Phone: | [place] | | | | | OUTPATIENT | [phone] | [address] | | | | | VISIT 25 | Fax: | Phone: | | | | | MINUTES | [phone] | [phone] | | | | | | | Fax: | | | | | | | [phone] | +--------+--------+ + + + + Encounter Details +--------+ + + + + | Date | Type | Department | Care Team | Description | +--------+ + + + + | 10/31/ | Hospital | [facility] | Reinaldo, | Gallbladder cancer, | | 2015 | Encounter | [facility] | Chad Soler MD [address] | carcinoma (HCC) | | | | ONCOLOGY CLINIC [address] | [facility] | (Primary Dx); | | | | [address] | [address] [place], [place] | Neoplasm related | | | | [place] [address] | [id number] | pain (acute) | | | | [phone] | | (chronic) | +--------+ + + [...] nt from the original. Hematology/Oncology Progress Note [facility] Pt. Name/Age/: Aura Upton 53 y.o. 1960 Med. Record Number: [id number] Date of admission: 10/31/2014 Identifying Statement: Aura Upton is a 53 y.o. female from [address] [place] [address] with Recurrent Cholangiocarcinoma. The patient chart and [...] Brandon Garcia March 29, 2012, pathological specimen [id number], analyzed by Dr. Bowers of [facility] and was notable for a poorly-differentiated adenoc arcinoma of the gallbladder. Liver biopsy demonstrated mild portal inflammation. 2. On April 28, 2012, she successfully underwent an R0 resection by Dr. Tai Stanton at [facility], pathological specimen [id number] was notable for the absence of any residual carcinoma within the gallbladder bed. However, 2/8 regional lym ph nodes contained regionally metastatic disease. 3. Consultation by Dr. Elva Grey of the [facility] on May returned the recommendation for adjuvant chemoradiation therapy following [id number] as follows: Capecitabine at 750 mg/m sq [...] staging by Dr. Oziel Casillas of the [facility]. Pathological analysis was notable for 9.5 cm mass replacing the left tube and ovary extensively involvin g the ovarian stroma with focal involvement of the fallopian tube stroma. The tumor was poo rly differentiated carcinoma with neuroendocrine features showing a similar histopathology p attern to the previously excised lymph node from the gallbladder bed in 2013. In addition, immunohistochemistry positive for CDX2 consistent [...] 7. Consultation with Dr. Elva Grey the [facility] in June 26, 2014 who recommended additional chemotherapy was cisplatin at 75 mg meter squared on day 1 a nd gemcitabine 1250 mg per meter squared on day one and day 8 of acute 21 day cycle for 6-8 cycles. A second opinion was obtained by Dr. Richie Thayer of the [facility] iance who returned the recommendation for [...] the recommendations of [facility]. Richie [facility]of the [facility] [place] with gemcitabine at 1000 mg per meter squared on day one and day 8 wi th cisplatin 25 mg meter squared on day one and day 8 of a Q 21 day cycle beginning on July 26, 2014 complicated by grade 3 neutropenia and grade [address] scan of the chest, abdomen and pelvis that [facility] on September 16, 2014 demonstrated no radiographic evidence of disease. Current Assessment & Plan Domo returned to clinic with her mother to initiate cycle #5 of cisplatin/gemcitabine for recurrent cholangiocarcinoma. 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 Previous analysis at [facility] in [place] confirmed adeq uate iron stores. A request for HIGINIO therapy was denied by her insurance provider. Plan; Initiate Cycle #5 Cis/gemcitabine for recurrent cholangiocarcioma. Treatment will be continued in [place] next week. Repeat imaging after Cycle#6 and if favorable, cross over to observation. Neoplasm related pain (acute) (chronic) Overview Pain due to recurrent cholangiocarcinoma. Current Assessment & Plan Patients with terminal and malignant pain will be exempt from the requirement for a writt en pain management agreement/narcotic contract. [[facility] Provider [place] ndbook of Operational [...] has been changed since signin Order Audit Jackson amitriptyline (ELAVIL) 10 mg tablet (Taking) Take 10 mg by mouth nightly. dexamethasone (DECADRON) 4 mg tablet (Taking) Take one tablet PO as directed. Number of times this order has been changed since signin Order Audit Jackson docusate calcium (SURFAK) 240 mg capsule (Taking) Take 240 mg by mouth as needed. Number of times this order has been changed since signin Order Audit Jackson fish oil 1,000 mg capsule (Taking) Take 1,000 mg by mouth Daily. Number of times this order has been changed since signin Order Audit Jackson HYDROcodone-acetaminophen (VICODIN) 5-500 mg per tablet (Taking) Take 1 tablet by mouth e very 4 hours as needed. Number of times this order has been changed since signin Order Audit Jackson MULTIPLE VITAMIN PO (Taking) Take by mouth Daily. Number of times this order has been changed since signin Order Audit Jackson ondansetron (ZOFRAN ODT) 8 mg disintegrating tablet (Taking) Take 8 mg by mouth every 8 h ours as needed for Nausea. Probiotic Product (PROBIOTIC DAILY PO) (Taking) Take by mouth Daily. Number of times this order has been changed since signin Order Audit Jackson Allergy: Allergies Allergen Reactions Sulfa Antibiotics Objectives: Temp: 37 C (98.6 F) BP: 111/70 mmHg Pulse: 86 Resp: 16 SpO2: 99 % on Min/Max Temp past 24 hours:Temp Av C (98.6 F) Min: 37 C (98.6 F) Max: 37 C (98.6 F) No intake or output data in the 24 hours ending 10/31/14 1918 Wt. Admission: Weight: 83.5 kg (184 lb [...] Oncol.: Golden Gonzalez., Rodger Bro., Steven Figueroa., Tab Burns, Shannan Varela., José Miguel Ramirez., Viraj, P .P.: Toxicity [...] therapy ( contact Gabrielle Bean RN at [facility] or [facility]). Begin procrit today. INFORMED CONSENT: The nature and character of the proposed treatment with Cisplatin and [place] citabine with HIGINIO therapy with Procrit and [...] for three days, on day 2,3,4 at [facility] [place]. Gabrielle has the order and has scheduled [...] this chart may have been created with [employer] voice recognition software. Occasi onal wrong-word or sound-alike substitutions may have occurred due to the inherent stevenson itations of voice recognition software. Please read the chart carefully and recognize, using context, where these substitutions have occurred. documented in this encounter Miscellaneous Notes Assessment & Plan Note - Chad Riggins MD - 10/31/2014 7:18 PM PDTAssociated Prob jose(s): Neoplasm related pain (acute) (chronic)Patients with terminal and malignant pain garth l be exempt from the requirement for a written pain management agreement/narcotic contract. [[facility] Provider Handbook of Operational Guidelines (2015), fourth edition, page 45]. ssessment & Pl an Note - Chad Riggins MD - 10/31/2014 7:15 PM PDTAssociated Problem(s): Gallblad jose cancer, carcinoma (HCC)Domo returned to clinic with her mother to initiate cycle #5 o f cisplatin/gemcitabine for recurrent cholangiocarcinoma. Aura's chief complaint is fatig ue, likely due to chemotherapy induced anemia. Previous analysis at [facility] in [place] confirmed adequate iron stores. A request for HIGINIO therapy was [facility]. Plan; Initiate Cycle #5 Cis/gemcitabine for recurrent cholangiocarcioma. Treatment will be continued in [place] next week. Repeat imaging after Cycle#6 and if favorable, cross over to observation. d ocumented in this encounter Plan of Treatment +--------+---------+ + + + | Date | Type | Specialty | Care Team | Description | +--------+---------+ + + + | 10/29/ | Office | Urology | Pedro Green, | | | 2019 | Visit | | DO [address] | | | | | | [place] [address] | | | | | | [phone] | | | | | | | | +--------+---------+ + + + documented as of this encounter Visit Diagnoses + + | Diagnosis | + + | Gallbladder cancer, carcinoma (HCC) - Primary Malignant neoplasm of gallbladder | + + | Neoplasm related pain (acute) (chronic) | + + documented in this encounter
--- OUTSIDE RECORDS SUMMARY | ~2019-10-19 | XMS | Encounter Summary ---
Demographics + + + | Address | [address] | | | [place] [address] | + + + | Home Phone [...] | [facility] | | | and [place] | + + + | Organization | [facility] | | | and [place] | + + + | Address | Unknown | + + + | Phone | Unavailable | + + + Support + + + + + | Name | Relationship | Address | Phone | + + + + + | Poncho Oquendo | ECON | [address] | | | | | [place] | | | | | [address] | | + + + + + | Marta Upton | ECON | [place] | | | | | [address] | | + + + + + Care Team Providers + +------+ + | Care Roll Dough Divider Name | Role | Phone | + [...] | | Personal | Reinaldo, | [address] | | | | | 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, | [place], | | | | | 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[address] | [place] [address] | | | | | neoplasm of | [place]QU[place] | Phone: | | | | | other site | [address] | [phone] | | | | | in | [place], | Fax: | | | | | gastrointest | [place] [address] | [phone] | | | | | inal tract | Phone: | | | | | | Procedures | [phone] | | | | | | CT Abdomen | Fax: | | | | | | Pelvis w | [phone] | | | | | | Contrast [...] | | | | (HCC) | [place] | [place] | | | | | Procedures | [address] | [address] | | | | | [place] OFFICE | Phone: | [place] | | | | | OUTPATIENT | [phone] | [address] | | | | | VISIT 25 | Fax: | Phone: | | | | | MINUTES | [phone] | [phone] | | | | | | | Fax: | | | | | | | [phone] | +--------+--------+ + + + + Encounter Details +--------+ + + + + | Date | Type | Department | Care Team | Description | +--------+ + + + + | 03/18/ | Hospital | [facility] | [facility], | Personal history of | | 2015 | Encounter | [facility] | Epifanio Soler MD 2296 | malignant neoplasm | | | | [facility] CL[facility] | [facility] | of other site in | | | | [place] | [address] [place], [place] | gastrointestinal | | | | [place] [address] | [address] | tract (Primary Dx); | | | | [phone] | | Obesity; Liver | | | [...] Aura Upton is a 53-year-old woman from [place], [place] who h as 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 Tai Stanton of the [facility] April 28, 2012. ACTIVE DIAGNOSES: 1. Presentation with biliary colic in March of 2012 status post cholecystectomy and live r biopsy by Dr. Brandon Garcia March 29, 2012, pathological specimen [id number], analyzed by Dr. Bowers of [facility] and was notable for a poorly-differentiated adenoca rcinoma of the gallbladder. Liver biopsy demonstrated mild portal inflammation. 2. On April 28, 2012, she successfully underwent an R0 resection by Dr. Tai Stanton at t [facility], pathological specimen [id number] was notable for the absence of any residual carcinoma within the gallbladder bed. However, 2/8 regional ly mph nodes contained regionally metastatic disease. 3. Consultation by Dr. Elva Grey of the [facility] on May returned the recommendation for adjuvant chemoradiation therapy following [id number] as follows: Capecitabine at 750 mg/m sq [...] [address] | | | | | | [place] [address] | | | | | | [phone] | | | | | | | [...] [address] | [place] | [phone] | | [facility] | | [address] | | | - LABORATORY | | [...] [place] | | | | | | [address] | | | | + + + [...] [address] | [place] [address] | [phone] | + + + + + [place] [...] | | | | | | [place] [address] | | | | + + + [...] [address] | [place] [address] | [phone] | + + + + + CEA [...] [address] | [place] | [phone] | | [facility] | | [address] | | | - LABORATORY | | [...] [address] | [place] | [phone] | | [facility] | | [address] | | | - LABORATORY | | [...] mL/min/1.73m2 | [facility] | | | [place] | RATE,ESTIMATED | | MEDICAL | | | | mL/min/1.23g1Gxes than | | CENTER - | | [...] ST. | [address] | [place] | [phone] | | [facility] | | [address] | | | - LABORATORY | | [...] [address] | [place] | [phone] | | [facility] | | [address] | | | - LABORATORY | | [...] + | [facility] | [address] | [place] | [phone] | | [facility] | | [address] | | | - LABORATORY | | | | + + + + + | [facility] | [address] | [place], [place] | | | [facility] | | [address] | | | - [...] eGFR, | >60Comment: GLOMERULAR | >=60 | [facility] | | | non- | FILTRATION | mL/min/1.73m2 | [facility] | | | [place] | RATE,ESTIMATED | | MEDICAL | | | | mL/min/1.69u6Fdnz than | | CENTER - | | [...] COMPA | | | | | | [facility] | | | | [...] [address] | [place] | [phone] | | [facility] | | [address] | | | - LABORATORY | | | | + + + + + | [facility] | [address] | [place] | | | [facility] | | [address], [facility] | | | - LABORATORY [...] | | | | ng/mL | [facility] | | | | | | [facility] | | | | | | CENTER [...] + | [facility] | [address] | [place], [place] | [phone] | | [facility] | | [address] | | | - LABORATORY | | | | + + + + + | [facility] | [address] | [place], [place] | | | [facility] | | [address], [facility] | | | - LABORATORY [...] [address] | [place] | [phone] | | [facility] | | [address] | | | - LABORATORY | | | | + + + + + | [facility] | [address] | [place] | | | [facility] | | [address], [facility] | | | - LABORATORY [...] [place], | | | | | | [place] [address] | | | | + + + [...] [address] | [place] [address] | [phone] | + + + + + documented [...]
--- OUTSIDE RECORDS SUMMARY | ~2019-10-19 | XMS | Encounter Summary ---
Demographics + + + | Address | [address] | | | [place] [address] | + + + | Home Phone [...] Providers + +------+ + | Care Classified Ad Taker Name | Role | Phone | + +------+ + | Valeriy Carmona MD | PCP | | + +------+ + Reason for Visit +---------+ + | Reason | Comments | +---------+ + | Post Op | | +---------+ + Office Visit - E/M Services (Routine) +--------+--------+ + + + + | Status | Reason | Specialty | Diagnoses / | Referred By | Referred To | | | | | Procedures | Contact | Contact | +--------+--------+ + + + + | Closed | | Obstetrics & | Diagnoses | [facility] | [facility] | | | | Gynecology | Complex | Epic Dept | [address] | | | | | Cystic Mass, | | [address] | | | | | elevated | | [place] | | | | | [address] per | | Alexis, 7th | | | | | appt notes | | floor | | | | | | | [place], [place] | | | | | | | [address] | | | | | | | Phone: | | | | | | | [phone] | | | | | | | Fax: | | | | | | | [phone] | +--------+--------+ + + + + Encounter Details +--------+---------+ + + + | Date | Type | Department | Care Team | Description | +--------+---------+ + + + | 07/23/ | Office | [facility] | Miguel Seymour, | 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 | [facility] [place] | [address] | (HCC) (Primary Dx); | | | | [facility] [address] | [address] | Pelvic mass; | | | | [address] | [place], [place] | Post-operative pain | | | | Alexis, 7th floor | [address] | | | | | [place], [place] | [phone] | | | | | [address] | | | | | | [phone] | | | +--------+---------+ + + + [...] Pressure | 114/58 | 07/23/2014 4:07 PM | | | | | PDT | | + + + + + | Pulse | 102 | 07/23/2014 4:07 PM | | | | | PDT | | + + + + + | Temperature | 37 C (98.6 F) | 07/23/2014 4:07 PM | | | | | PDT | | + + + + + | Respiratory Rate | - | - | | + + + + + | Oxygen Saturation | 99% | 07/23/2014 4:07 PM | | | | | PDT | | + + + + + | Inhaled Oxygen | - | - | | | Concentration | | | | + + + + + | Weight | 75.7 kg (166 lb 12.8 | 07/23/2014 4:07 PM | | | | oz) | PDT | | + + + + + | Height | 162.6 cm (5' 4") | 07/23/2014 4:07 PM | | | | | PDT | | + + + + + | Body Mass Index | 28.63 | 07/23/2014 4:07 PM | | | | | PDT | | + + + + + documented in this encounter Progress Notes Lotus Maher MD - 07/23/2014 4:02 PM PDTFormatting of this note might be different fr om the original. 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 Exploratory laparotomy, total abdominal hysterectomy, bilateral salpingoopherectomy with resection of bilateral adnexal masses, omentectomy, left para-aortic lymph node dissection, left pelvic lymph node dissection MEASURABLE DISEASE: Exam: DAIN Imaging: None new INTERVAL HISTORY: Aura doing well today. Still requiring some narcotics for pain, 5 mg oxycodone about miguel ángel ry 6 hours. Taking ibuprofen as adjunct. Struggling with constipation, having a hard BM ever y other day but having to strain. Only using docusate and keeping hydrated. No vaginal bleed ing. No abnormal discharge. Started having intercourse last week, no issues. Plan to start G emcitabine and cisplatin this Tuesday with Dr. Najera, plan for 6 cycles. CURRENT MEDICATIONS: Current Medication List Name Sig DOCUSATE SODIUM 100 MG CAPSULE Take 1 capsule by mouth two times daily. IBUPROFEN 600 MG TABLET Take 1 tablet [...] Take 1 tablet by mouth once daily. OXYCODONE 5 MG TABLET Take 1 tablet by mouth every six hours as needed. POLYETHYLENE GLYCOL 3350 17 GRAM/DOSE ORAL POWDER Take 17 g by mouth once daily. REVIEW OF SYSTEMS: Constitutional: fatigue HEENT: negative Cardiovascular: negative Respiratory: negative Gastrointestinal: constipation Genitourinary: negative Musculoskeletal:negative Integumentary:negative Neurologic: negative Psychiatric:negative PHYSICAL EXAM: BP 114/58 | Pulse 102 | Temp (Src) 37 C (98.6 F) (Oral) | Ht 1.626 m (5' 4") | Wt 75.66 kg (166 lb 12.8 oz) | SpO2 99% | BMI 28.62 kg/(m^2) General: pleasant well nourished female in NAD HEENT: posterior oropharynx clear, sclera anicteric CARDIOVASCULAR: RRR, no murmurs RESPIRATORY: CTA bilateral anterior and posterior harrell Abdomen: soft, mildly obese and nontender. Well healed vertical midline incision. No masses or HSM appreciated. Extremities: normal ROM of the upper and lower extremities. No LE edema bilaterally : normal appearing external genitalia without erythema, excoriation, or lesions. Speculum reveals pink and ruggated vaginal mucosa without lesions. The cuff is intact and healing we ll, minimal granulation tissue. On bimanual no cuff nodularity. No pelvic masses appreciated . LABS/RADIOLOGIC STUDIES: None new. ASSESSMENT: 53 y.o. with Stage IIIB gallbladder cancer with recurrence involving ovaries, f allopian tubes, and pelvic peritoneum, now six weeks postop from R0 debulking with gynecolog ic oncology. Recovering well from surgery, plan for adjuvant chemotherapy with medical oncol ogy. PLAN: 1. Recommend continuing to taper narcotic to improve constipation, as well as adding Mirala x to bowel regimen 2. Continue routine pelvic exams to assess for pelvic recurrence (can be with regular FLATWORK PRESSER) 3. Discharge from clinic unless other hadoop developer oncology needs in future Patient seen and discussed with Dr. Henderson, who agrees with the assessment and plan. Lotus Maher MD CARE GIVER R4 I saw and evaluated the patient on 07/23/2014. I agree with the findings and the plan of melinda whiting as documented in the resident s note. Patt Henderson M.D. Division of Gynecologic Oncology Department of Obstetrics and Gynecology documented in this encounter Plan of Treatment Not on filedocumented as of this encounter Visit Diagnoses + + | Diagnosis | + + | Gallbladder cancer (HCC) - Primary Malignant neoplasm of gallbladder | + + | Pelvic mass Abdominal or pelvic swelling, mass or lump, unspecified site | + + | Post-operative pain Other acute postoperative pain | + + documented in this encounter
--- OUTSIDE RECORDS SUMMARY | ~2019-10-19 | XMS | Encounter Summary ---
Demographics + + + | Address | [address] | | | [place] [address] | + + + | Home Phone [...] + | Poncho Oquendo | ECON | [address] | | | | | [place] | | | | | [address] | | + + + + + | Marta Upton | ECON | [place] | | | | | [address] | | + + + + + Care Team Providers + +------+ + | Care Bearing Inspector Name | Role | Phone | + +------+ + PCP | Unavailable | + +------+ + Encounter Details +--------+ + + + + | Date | Type | Department | Care Team | Description | +--------+ + + + + | 08/07/ | Hospital | [facility] | | | | 2012 - | Encounter | [facility] | | | | | | CENTER [address] | | | | 08/13/ | | [place], [place] | | | | 2012 | | [address] | | | | | | [phone] | | | +--------+ + + + [...] | | | | | [place] [address] | | | | | | [phone] | | | | | | | [...] + + + | White Blood | 6.5 (A) | 4.0 - 11.0 K/uL | [facility] | | | Cells | | | [facility] | | | | | | MEDICAL | | | | | | CENTER - | | | | | | LABORATORY | | + + + + + + | Red Blood | 3.93 | 3.70 - 5.20 | [...] | | Lymphocytes | | | [facility] | | | | | | MEDICAL [...] [address] | [place] | [phone] | | [facility] | | [address] | | | - LABORATORY | | | | + + + + + | [facility] | [address] | [place] | | | [facility] | | [address] | | | - LABORATORY | [...] (formerly Mahad) Advia | | [facility] | | | | Centaur immunoassay | [...] [place] | | | | | | [address] [place]: | | | | | | [id number] | | | | + + + + + + + + | Specimen | + + | | + + + + + + + | Performing | Address | City/State/Zipcode | Phone Number | | Organization | | | | + + + + + | [facility] | [address] | [place] | [phone] | | [facility] | | [address] | | | - LABORATORY | | | | + + + + + | [facility] | [address] | [place], [place] | | | [facility] | | [id number] | | | - LABORATORY | [...] | >60Comment: For | >60 mL/min/A | [facility] | | | GFR | -Americans, | [...] | [facility] | [address] | [place] | [phone] | | [facility] | | [address] | | | - LABORATORY | | | | + + + + + | [facility] | [address] | [place] | | | [facility] | | [id number] | | | - LABORATORY | [...] | [facility] | [address] | [place], [place] | [phone] | | [facility] | | [address] | | | - LABORATORY | | | | + + + + + | [facility] | [address] | [place], [place] | | | [facility] | | [id number] [place] [address] | | | - LABORATORY | | [...] + + + | White Blood | 3.0 (L) | 4.0 - 11.0 K/uL | [facility] | | | Cells | | | [facility] | | | | | | MEDICAL | | | | | | CENTER - | | | | | | LABORATORY | | + + + + + + | Red Blood | 4.19 | 3.70 - 5.20 | [...] SUSPECTED | 1 (H)Comment: PERFORM | | [facility] | | | PROBLEM IS: | SMEAR [...] [address] | [place] | [phone] | | [facility] | | [address] | | | - LABORATORY | | | | + + + + + | [facility] | [address] | [place] | | | [facility] | | [address], [facility] | | | - LABORATORY [...] 98 | 70 - 109 mg/dL | [facility] [...] (L) | 7 - 18 mg/dL | [facility] | | | | | | [facility] | | | | | | MEDICAL | | | | | | CENTER - | | | | | | LABORATORY | | + + + + + + | Creatinine | 0.77 | 0.60 - 1.30 | [facility] | | | | | [...] | ine Ratio | | | [facility] | | | | | | MEDICAL | | | | | | CENTER - | | | | | | LABORATORY | | + + + + + + | Na | 140 | 136 - 149 mEq/L | [facility] | | | | | | [facility] | | | | | | MEDICAL [...] | 9.7 | 6.0 - 17.0 | [facility] | [...] | [facility] | [address] | [place] | [phone] | | [facility] | | [address] | | | - LABORATORY | | | | + + + + + | [facility] | [address] | [place], [place] | | | [facility] | | [id number] | | | - LABORATORY | [...] [address] | [place] | [phone] | | [facility] | | [address] | | | - LABORATORY | | | | + + + + + | [facility] | [address] | [place] | | | [facility] | | [id number] | | | - LABORATORY | [...] + + + | Red Blood | 4.50 | 3.70 - 5.20 | [...] | | | | | gm/dL | [facility] | | | | | | MEDICAL | | | | | | CENTER - | | | | | | LABORATORY | | + +---------+ + + + | Hematocrit | 40.8 | 34.0 - 47.0 % | [facility] | | | | | | [facility] | | [...] | [facility] | [address] | [place] | [phone] | | [facility] | | [address] | | | - LABORATORY | | | | + + + + + | [facility] | [address] | [place] | | | [facility] | | [address], [facility] | | | - LABORATORY [...] 3.7 | 3.2 - 5.0 gm/dL | [facility] [...] | [facility] | [address] | [place], [place] | [phone] | | [facility] | | [address] | | | - LABORATORY | | | | + + + + + | [facility] | [address] | [place], [place] | | | [facility] | | [address] [place] [address] | | | - LABORATORY | | [...] [address] | [place] | [phone] | | [facility] | | [address] | | | - LABORATORY | | | | + + + + + | [facility] | [address] | [place] | | | [facility] | | [address], [facility] | | | - LABORATORY [...] | | [facility] | | | [facility] | | | L ? | | | MEDICAL | | | | | | CENTER - | | | | | | LABORATORY | | + + + + + + | White Blood | 14.1 (H) | 4.0 - 11.0 K/uL | [facility] | | | Cells | | | [facility] | | | | | | MEDICAL | | | | | | CENTER - | | | | | | LABORATORY | | + + + + + + | Red Blood | 4.15 | 3.70 - 5.20 | [...] | SUSPECTED | 1 (H) | | [facility] | | | PROBLEM IS: | Comment: | | [facility] | | | | Left Shift | [...] [address] | [place] | [phone] | | [facility] | | [address] | | | - LABORATORY | | | | + + + + + | [facility] | [address] | [place] | | | [facility] | | [id number] | | | - LABORATORY | [...] 8 | 7 - 18 mg/dL | [place] | | | | | | [facility] | | | | | | MEDICAL | | | | | | CENTER - | | | | | | LABORATORY | | + + + + + + | Creatinine | 0.86 | 0.60 - 1.30 | [facility] | | | | | mg/dL | [facility] | | | | | | MEDICAL | | | | | | CENTER - | | | | | | LABORATORY | | + + + + + + | Estimated | >60Comment: For | >60 mL/min/A | [facility] | | | GFR | -Americans, | [...] | 14.4 | 6.0 - 17.0 | [facility] | [...] | [facility] | [address] | [place] | [phone] | | [facility] | | [address] | | | - LABORATORY | | | | + + + + + | [facility] | [address] | [place], [place] | | | [facility] | | [id number] | | | - LABORATORY | | | | + + + + + Lactate Dehydrogenase (07/17/2012 2:21 PM PDT) + +---------+ + + + | Component | Value | Ref Range | Performed | Pathologist | | | | | At | Signature | + +---------+ + + + | LDH TOTAL | 257 (H) | 91 - 180 IU/L | [facility] | | | | | | [facility] | | | | | | MEDICAL | | | | | | CENTER - | | | | | | LABORATORY | | + +---------+ + + + + + | Specimen | + + | | + + + + + + + | Performing | Address | City[facility] | Phone Number | | Organization | | | | + + + + + | [facility] | [address] | [place] | [phone] | | [facility] | | [address] | | | - LABORATORY | | | | + + + + + | [facility] | [address] | [place] | | | [facility] | | [id number] | | | - LABORATORY | | | | + + + + + documented in this encounter Visit Diagnoses Not on filedocumented in this encounter"
--- OUTSIDE RECORDS SUMMARY | ~2019-10-19 | XMS | Encounter Summary ---
Demographics + + + | Address | [address] | | | [place] [address] | + + + | Home Phone | | + + + | Preferred Language | Unknown | + + + | Marital Status | Single | + + + | Rastafarian Affiliation | NON | + + + [...] Team Providers + +------+ + | Care Animal Handler Name | Role | Phone | [...] | Nasal | Aamir Keller | [address] | | | | | septal | [address] | | | | | defect | [address] | [address] | | | | | Procedures | [place], [place] | [place], [place] | | | | | CONSULT TO | [address] | [address] | | | | | ENT / FACIAL | Phone: | Phone: | | | | | PLASTIC | [phone] | [phone] | | | | | SURGERY | Fax: | Fax: | | | | | | [phone] | [phone] | +--------+--------+ + + + + Encounter Details +--------+---------+ + + + | Date | Type | Department | Care Team | Description | +--------+---------+ + + + | 03/07/ | Office | Otolaryngology | Jose Olivia MD | Nasal Septal Defect | | 2008 | Visit | Facial Plastics & | [address] | (Primary Dx) | | | | Khadijah | [address] [place], | | | | | Services at [facility] | [place] [address] | | | | | [address] | | | | | | [facility] | | | | | | and Healing, | | | | | | Building , | | | | | | Floor [place], [place] | | | | | | [address] | | | | | | [phone] | | | +--------+---------+ + + + [...] documented as of this encounter Progress Notes Jose Olivia - 03/07/2008 10:00 PM PSTClinic: Facial Plastic and Reconstructive Surgery Cli dav Upton is a 47 y.o. female seen [...] BTL Allergies: nkda Social History: Lives in [place]. Past smoking history, none now. No alcohol [...] wishes to sc hedule. Jose Olivia MD Retail Product Advisor Facial Plastic and Reconstructive Surgery Department of Otolaryngology/Head and Neck Surgery [employer] [facility] [employer] Email - [email or web address] documented in this encounter Plan of Treatment Not on filedocumented as of this encounter Visit Diagnoses + + | Diagnosis | + + | Nasal septal defect - Primary Other diseases of nasal cavity and sinuses | + + documented in this encounter"
--- OUTSIDE RECORDS SUMMARY | ~2019-10-19 | XMS | Encounter Summary ---
Demographics + + + | Address | [address] | | | [place] [address] | + + + | Home Phone [...] | Author | [facility] | | | and [place] | + + + | Organization | [facility] | | | and [place] | + + + | Address | Unknown | + + + | Phone | Unavailable | + + + Support + + + + + | Name | Relationship | Address | Phone | + + + + + | Poncho Oquendo | ECON | [address] | | | | | [place] | | | | | [address] | | + + + + + | Marta Upton | ECON | [place] | | | | | [address] | | + + + + + Care Team Providers + +------+ + | Care Spring Layer Name | Role | Phone | + +------+ + | Valeriy Carmona DO | PCP | | + +------+ + Reason for Visit +---------+--------+ + | Reason | Onset | Comments | | | Date | | +---------+--------+ + | Results | 04/22/ | | | | 2016 | | +---------+--------+ + Encounter Details +--------+ + + + + | Date | Type | Department | Care Team | Description | +--------+ + + + + | 04/22/ | Telephone | [facility] | Reinaldo, | Results | | 2016 | | MED CTR MED[facility] | Chad Soler MD 1949 | | | | | ONCOLOGY CLINIC [address] | [facility] | | | | | [address] | [address] [place], [place] | | | | | [place] [address] | [address] | | | | | [phone] | | | +--------+ + + + [...] this encounter Miscellaneous Notes Telephone Encounter - Chad Riggins MD - 04/22/2016 1:33 PM PSTCritical laborator y value acknowledged, no immediate action required. Electronically signed by: CHAD RIGGINS MD 04/22/2016 13:34 elephone Jo Ann chaves - Milly Hay RN - 04/22/2016 1:17 PM PST[facility] [place] [facility] to notify Dr. Riggins that Aura has a critical lab value: PLT 27. Please advise. Elec tronically signed by Milly Hay RN at 04/22/2016 1:18 PM PSTdocumented in this enco unter Plan of Treatment +--------+---------+ + + + | Date | Type | Specialty | Care Team | Description | +--------+---------+ + + + | 10/29/ | Office | Urology | Pedro Green, | | | 2019 | Visit | | DO [address] | | | | | | [place] [address] | | | | | | [phone] | | | | | | | | +--------+---------+ + + + documented as of this encounter Visit Diagnoses Not on filedocumented in this encounter"
--- OUTSIDE RECORDS SUMMARY | ~2019-10-19 | XMS | Encounter Summary ---
Demographics + + + | Address | [address] | | | [place] [address] | + + + | Home Phone [...] + | Author | [facility] | | | and [place] | + + + | Organization | [facility] | | | and [place] | + + + | Address | Unknown | + + + | Phone | Unavailable | + + + Support + + + + + | Name | Relationship | Address | Phone | + + + + + | Poncho Oquendo | ECON | [address] | | | | | [place] | | | | | [address] | | + + + + + | Marta Upton | ECON | [place] | | | | | [address] | | + + + + + Care Team Providers + +------+ + | Care Band Sawyer Name | Role | Phone | + [...] + + | 11/29/ | Hospital | [facility] | Pedro Green, | Obstruction of left | | 2019 | Encounter | [facility] | DO [address] | ureter | | | | CARE FLO[address] | [place] [address] | | | | | [address] | [phone] | | | | | [place], [place] | | | | | | [address] | | | | | | [phone] | | | +--------+ + + + [...] out of the urethra Date Last Reviewed: 02/15/201619995303-0496 [employer]. [address] [place] [address], [place] [address]. All righ ts reserved. This information is [...] on your doctor's advice. Talk to your swedish masseuse regarding the use of this medicine in children. Special care may be needed. What side effects may I notice from receiving this medicine? Side effects that you should report to your doctor or health field care coordinator as soon as p ossible: allergic reactions like skin rash, itching or hives, swelling of the face, lips, or tongue blue or purple color of the skin difficulty breathing fever less urine unusual bleeding, bruising unusual tired, weak vomiting yellowing of the eyes or skin Side effects that usually do not require medical attention (report to your doctor or health field care coordinator if they continue or are bothersome): dark [...] if you have any of these conditions: hdgjvri-8-qpmkdhtmj dehydrogenase (G6PD) deficiency kidney disease an unusual or allergic reaction to phenazopyridine, other medicines, foods, dyes, or preser vatives or trying to get breast-feeding What should I watch for while using this medicine? Tell your doctor or health field care coordinator if your symptoms do not improve or [...] for sugar in your urine. Talk to [place] health care provider. NOTE:This sheet is a summary. It may not cover all possible information. If you have questi ons about this medicine, talk to your doctor, pharmacist, or health care provider. Copyright 2019 [employer] Ciprofloxacin tablets Brand Name: Cipro What is [...] information carefully each time. Talk to your swedish masseuse regarding the use of this medicine in children. Special care may be needed. What side effects may I notice from receiving this medicine? Side effects that you should report to your doctor or health field care coordinator as soon as p ossible: allergic reactions [...] attention (report to your doctor or health field care coordinator if they continue or are bothersome): dry [...] watery. Check with your doctor or health field care coordinator if you get an attack of severe diarrhea, nausea and vomiting, or if you sweat a lot. The loss of too much body fluid can make it haile gerous for you to take this medicine. This medicine may affect blood sugar levels. If you have diabetes, check with your doctor o r health field care coordinator before you change your diet or the [...] milliliters | | 0 | 09/29/19 | 03/09/202 | | GM/15ML solution | by mouth [...] + documented as of this encounter Progress Nikky Matta RN - 11/29/2018 3:56 PM PDTDischarge instructions including prescriptio ns and when to call the doctor were reviewed with the patient and mother. All questions were answered. Discharge criteria has been; vss and patient was able to void. Patient discharged home via wheelchair with mother. Nikky Guallpa RN 11/29/18 15:58 documented in this encounter H&P Pedro Perales DO - 11/29/2018 12:52 PM PDTSURGICAL INTERIM HISTORY [...] signed by: Pedro Green DO, 11/29/2018 12:52 [facility] Pedro Hanley DO - 11/21/2018 10:30 AM PDT [facility] Urology Primary Care Provider: No Physician [...] well. Her last excha nge was at [facility] during a septic episode. Her [...] - STENT; Surgeon: Pedro Green DO; Location: [facility] OR; Service: Urology; Laterality: Left; [...] left ure teral stent placement Surgeon: Pedro rGeen DO Electrical Systems Engineer(s): SWETA Anesthesia: General LMA Estimated Blood Loss: [...] dorsal lithotomy position. Following a preoperative pause, 21.5-Croatian cystoscope sheath with 30-degree lens was insert [...] catheter was removed, allowing for placement of 7-Croatian x 24 cm ureteral stent without strings [...] 2019 | Visit | | DO [address] | | | | | | [place] [address] | | | | | | [phone] | | | | | | | [...] | | | | | | longer, hffxqd-sya-xxpsb use of | | | | | [...]
--- OUTSIDE RECORDS SUMMARY | ~2019-10-19 | XMS | Encounter Summary ---
Demographics + + + | Address | [address] | | | [place] [address] | + + + | Home Phone [...] Team Providers + +------+ + | Care Interventional Radiology Tech Name | Role | Phone | [...] cancer | [address] | [address] [facility] | | | | | ([facility]) | [facility] | [facility] | | | | | Procedures | Rd | [address] [place], | | | | | REQUEST TO | [place], [place] | [place] | | | | | SURGERY | [address] | [address] | | | | | ORDNANCE TECHNICIAN | Phone: | Phone: | | | | | [place] RESEC | [phone] | [phone] | | | | | LIVER,PART | Fax: | Fax: | | | | | LOBECTOMY | [phone] | [phone] | | | | | [place] REMOVE | | | | | | | ABD LYMPH | | | | | | | NODES RAD | | | | | | | REGNL [place] | | | | | | | [...] | | | | CT CHEST, | [place], [place] | 10th Floor | | | | | ABDOMEN & | [address] | [place], [place] | | | | | PELVIS [address] IV | Phone: | [phone] | | | | | CONTRAST | [phone] | Phone: | | | | | [address], [address] | Fax: | [phone] | | | | | | [phone] | Fax: | | | | | | | [phone] | +--------+--------+ + + + + Reason [...] | | | | | cancer | [facility] | [address] | | | | | (HCC) | SURGICAL | [facility]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 | CLINIC [address] | [address] [place], | | | | | ca | [place] | [place] | | | | | | AVE | [address] | | | | | | [place], | Phone: | | | | | | [place] [address] | [phone] | | | | | | Phone: | Fax: | | | | | | [phone] | [phone] | | | | | | Fax: | | | | | | | [phone] | | +--------+--------+ + + + + Encounter Details +--------+---------+ + + + | Date | Type | Department | Care Team | Description | +--------+---------+ + + + | 04/12/ | Office | Digestive Health | Tai Stanton, | Gallbladder cancer | | 2012 | Visit | Center at [facility] [address] | [address] | (HCC) (Primary Dx) | | | | [address] | [facility] | | | | | for [facility] and | [place], [place] | | | | | [facility] 2 | [address] | | | | | [place], [place] | [phone] | | | | | [address] | | | | | | [phone] | | | +--------+---------+ + + + [...] - 04/12/2012 5:30 PM PSTPATIENT SURGERY INFORMATION [facility] General Surgery Office Toll-free: ext [phone] Surgery Date: April 28, 2012 Procedure: Segment [...] from anyone by 7 pm please call [phone]. PARKING Parking for patients is available underneath the [facility] building. Parking is also available in the [facility] Parking structure located across from the emergency [...] Please notify the general surgery office at [phone] as soon as possible should you nee [...] prior to your surgery. PRODUCTS CONTAINING ASPIRIN Winsome-Mesquite, Anacin, Anexsia with Codeine, Andynos, Aspirin, Aspirin suppositories, Ascrip tin, Aspergum, Axotal, B-A-C, Baby Aspirin, Mahad, BC Powder, Bexophene, Buffaprin, Bufferin , Buffinol, Cama-Arthritis Strength, Congespirin, Schroeder, Coricidin, Damason, Darvon, Dristan, Elen-Gesic, Digel, Dolprin #3 Tablets, Donatab, Doxaphene, Duragesic, Easprin, Ecotrin, Emag rin Forte, Emiprin, Emprazil, Equagesic, Equazine M, Excedrin, Fiogesic, Fiorgen PH, Fiorice t, Fiorinal, 4-Way Cold Tablet Gemnisyn, Indocin, Liquprin, Lortab ASA, Magnaprin, Marnal, Meprobamate, Midol, Momentum, N orgesic, Rogers, Orphengesic, Pabalate, P-A-C, Percodan, Presalin, Robaxasil, Roxiprin, Cruz eto, Salocol SK-65 Compound, Sine-Aid, Sine-Off,, [place], Supac, Talwin Compound, Trigesic, Tolectin , Traiminicin, Vanquish, ZORprin, Zomax PRODUCTS CONTAINING IBUPROFEN Advil, Aleve, Haltran, Medipren, Midol, Motrin, Naproxyn, Nuprin, Rufen OTHER PRODUCTS WHICH MAY PROMOTE BLEEDING Vitamin E, Gingko Biloba, Marine Fatty Acids, Gleason-3 Fish Oil SupplementsElectronically si gned by Amy Dinh RN at 04/12/2012 5:31 PM PST documented in this encounter Progress Notes Tai Stanton MD - 04/18/2012 11:09 AM PSTI saw and evaluated the patient. I agree with the findings and the plan of care as documented in the resident s note. Tai Stanton M.D. [facility] ([facility]) Professor and Vice-Automation Technologist of Surgery [facility] Panc[facility] Research Pancreatic/ HepatoBiliary and Foregut Working Groups Mail Code [id number] [address] [place], [place]. [address] email: [email or web address] [email or web address] smith MD - 04/12/2012 6:05 PM PST ID: Aura Upton CC: Referral for treatment of gall-bladder cancer found post lap analy HPI: Mrs Upton is a 51yo woman w/ h/o chronic back pain who is being referred by her georgina geon at [facility] for incidental finding gallbladder mass during [...] had a la paroscopic Cholecystectomy performed at [facility] which confirmed 3 gallstones an [...] cancers Father DM, CAD SH: Lives on [facility] with , Denies tobacco use, very brief [...] Latest Range: 0.60-1.10 mg/dL 0.70 EGFR - IRAQI No range found >60 EGFR NON -IRAQI No range found >60 GLUCOSE, PLASMA (LAB) [...] Farr MD Chief Resident Department of Surgery [facility] documented in this en counter Procedure Notes [...] | | + +---------+ + + | [facility] DEPARTMENT OF | | | [...] by | | | | | | Enlighted,[address] | | | | | | Lavonne James, [facility] | | | | | | [address] | | | | | | [phone].[facility]. | | | | | | Lala [...] [facility] | [address] | [place], [place] | | | [facility] | | [address] | | + + + + + [...] | | | | | | Laboratories,[address] [facility] | | | | | | Jacob, [facility] [place] [address] | | | | | | [phone].aruplab. | | | | | | Lala [...] [facility] | [address] | [place], [place] | | | [facility] | | [address] | | + + + + + [...] | + + + + + | [facility] | [address] [facility] [address] | [place] [address] | | | SERVICES, CORE | NEAL [...] | | | LABORATORY | | | IRAQI | | | SERVICES, | | | [...] | + + + + + | [facility] | [address] | [place] [address] | | | [facility] | | | | | HEALTH + HEALING | | | | + + + + + documented in this encounter Visit Diagnoses + + | Diagnosis | + + | Gallbladder cancer (HCC) - Primary Malignant neoplasm of gallbladder | + + documented in this encounter
--- OUTSIDE RECORDS SUMMARY | ~2019-10-19 | XMS | Encounter Summary ---
Demographics + + + | Address | [address] | | | [place] [address] | + + + | Home Phone [...] Team Providers + +------+ + | Care Underlay Stitcher Name | Role | Phone | + [...] | | | | | Procedures | [place], [place] | [place], [place] | | | | | CON[place] | [address] | [address] | | | | | ENT / FACIAL | Phone: | Phone: | | | | | PLASTIC | [phone] | [phone] | | | | | SURGERY | Fax: | Fax: | | | | | | [phone] | [phone] | +--------+--------+ + + + + Encounter [...] | | | Reconstructive | [address] [place], | | | | | Services at [facility] | [place] [address] | | | | | [address] | [phone] | | | | | [facility] | | | | | | and Healing, | | | | | | Building 1, 5th | | | | | | Floor [place], [place] | | | | | | [address] | | | | | | [phone] | | | +--------+---------+ + + + [...] Surgery Dept. of Otolaryngology/Head and Neck Surgery [facility] [place] tel fax email [email or web address] documented in this encounte r Plan of Treatment Not on filedocumented as of this encounter Visit Diagnoses + + | Diagnosis | + + | Postop check - Primary Follow-up examination, following unspecified surgery | + + documented in this encounter"
--- OUTSIDE RECORDS SUMMARY | ~2019-10-19 | XMS | Encounter Summary ---
Demographics + + + | Address | [address] | | | [place] [address] | + + + | Home Phone [...] | Author | [facility] | | | and [place] | + + + | Organization | [facility] | | | and [place] | + + + | Address | Unknown | + + + | Phone | Unavailable | + + + Support + + + + + | Name | Relationship | Address | Phone | + + + + + | Poncho Oquendo | ECON | [address] | | | | | [place] | | | | | [address] | | + + + + + | Marta Upton | ECON | [place] | | | | | [address] | | + + + + + Care Team Providers + +------+ + | Care Suit Attendant Name | Role | Phone | + +------+ + | Valeriy Carmona DO | PCP | | + +------+ + Reason for Visit +--------+--------+ + | Reason | Onset | Comments | | | Date | | +--------+--------+ + | Other | 09/19/ | | | | 2014 | | +--------+--------+ + Encounter Details +--------+ + + + + | Date | Type | Department | Care Team | Description | +--------+ + + + + | 09/19/ | Telephone | [facility] | Reinaldo, | Other | | 2014 | | MED CTR MEDICAL | Chad Soler MD [address] | | | | | ONCOLOGY CLINIC [address] | [facility] | | | | | [address] | [address] [place], [place] | | | | | [place] [address] | [address] | | | | | [phone] | | | +--------+ + + + [...] Telephone Encounter - Waleska Morrissey RN - 09/19/2014 2:50 PM PDTOrders [facility]ed [facility]. Confirmation of fax received. Will contact patient about thi s. elephone Chad Lynch MD - 09/19/2014 2:27 PM PDTOkay to have blood drawn in [facility] tomorrow, send lab slip to [facility]. CHAD RIGGINS MD elephone Tila Pro - 09/19/2014 2:08 PM PDTAura is concerned that her blood count is too low for chemo treatment tomorrow and would like to see if she can get her blood draw n early tomorrow morning down in [place] before her treatment and she would like a [facility] Riggins thank you. 2:1 8 PM PDTdocumented in this encounter Plan of Treatment +--------+---------+ + + + | Date | Type | Specialty | Care Team | Description | +--------+---------+ + + + | 10/29/ | Office | Urology | ePdro Green, | | | 2019 | Visit | | DO [address] [facility] | | | | | | [place] [address] | | | | | | [phone] | | | | | | | [...]
--- OUTSIDE RECORDS SUMMARY | ~2019-10-19 | XMS | Encounter Summary ---
Demographics + + + | Address | [address] | | | [place] [address] | + + + | Home Phone [...] Team Providers + +------+ + | Care Public Address Technician Name | Role | Phone | [...] Pharmacy | | | | | | [address] | | | | | | [address] [place], [place] | | | | | | [address] | | | | | | [phone] | | | +--------+ + + + [...]
--- OUTSIDE RECORDS SUMMARY | ~2019-10-19 | XMS | Encounter Summary ---
Demographics + + + | Address | [address] | | | [place] [address] | + + + | Home Phone [...] Providers + +------+ + | Care Nuclear Powerplant Mechanic Helper Name | Role | Phone | [...] 09/29/ | Abstract | Digestive Health | Stanton, Tai, | Medical Records | | 2012 | | Center at [facility] [address] | [address] [facility] | Review ( abd ) | | | | [address] [facility] | [facility] | | | | | [facility] and | [place], [place] | | | | | [facility] [address] | [address] | | | | | [place], [place] | [phone] | | | | | [address] | | | | | | [phone] | | | +--------+ + + + [...]
--- OUTSIDE RECORDS SUMMARY | ~2019-10-19 | XMS | Encounter Summary ---
Demographics + + + | Address | [address] | | | [place] [address] | + + + | Home Phone [...] + + + | Author | [facility] | | | and [place] | + + + | Organization | [facility] | | | and [place] | + + + | Address | Unknown | + + + | Phone | Unavailable | + + + Support + + + + + | Name | Relationship | Address | Phone | + + + + + | Poncho Oquendo | ECON | [address] | | | | | [place] | | | | | [address] | | + + + + + | Marta Upton | ECON | [place] | | | | | [address] | | + + + + + Care Team Providers + +------+ + | Care Administrative And Program Specialist Name | Role | Phone | + +------+ + PCP | Unavailable | + +------+ + Encounter Details +--------+ + + + + | Date | Type | Department | Care Team | Description | +--------+ + + + + | 08/07/ | Hospital | [facility] | | | | 2012 - | Encounter | [facility] | | | | | | CENTER [address] | | | | 08/13/ | | [place], [place] | | | | 2012 | | [address] | | | | | | [phone] | | | +--------+ + + + [...] | | | | | [place] [address] | | | | | | [phone] | | | | | | | [...] [address] | [place] | [phone] | | [facility] | | [address] | | | - LABORATORY | | | | + + + + + | [facility] | [address] | [place] | | | [facility] | | [address] | | | - LABORATORY [...] | (formerly Mahad) Advia | | [place] | | | | Centaur immunoassay | [...] [place] | | | | | | [address] [place]: | | | | | | [id number] | | | | + + + + + + + + | Specimen | + + | | + + + + + + + | Performing | Address | City/State/Zipcode | Phone Number | | Organization | | | | + + + + + | [facility] | [address] | [place] | [phone] | | [facility] | | [address] | | | - LABORATORY | | | | + + + + + | [facility] | [address] | [place], [place] | | | [facility] | | [address] | | | - LABORATORY [...] | >60Comment: For | >60 mL/min/A | [facility] | | | GFR | -Americans, | [...] + | [facility] | [address] | [place] | [phone] | | [facility] | | [address] | | | - LABORATORY | | | | + + + + + | [facility] | [address] | [place] | | | [facility] | | [address] | | | - LABORATORY [...] + | [facility] | [address] | [place], [place] | [phone] | | [facility] | | [address] | | | - LABORATORY | | | | + + + + + | [facility] | [address] | [place], [place] | | | [facility] | | [address] [place] [address] | | | - LABORATORY | | [...] [address] | [place] | [phone] | | [facility] | | [address] | | | - LABORATORY | | | | + + + + + | [facility] | [address] | [place] | | | [facility] | | [address], [facility] | | | - [...] + | [facility] | [address] | [place] | [phone] | | [facility] | | [address] | | | - LABORATORY | | | | + + + + + | [facility] | [address] | [place], [place] | | | [facility] | | [address] | | | - LABORATORY [...] [address] | [place] | [phone] | | [facility] | | [address] | | | - LABORATORY | | | | + + + + + | [facility] | [address] | [place] | | | [facility] | | [address] | | | - LABORATORY [...] + | [facility] | [address] | [place] | [phone] | | [facility] | | [address] | | | - LABORATORY | | | | + + + + + | [facility] | [address] | [place] | | | [facility] | | [address], [facility] | | | - [...] | | Phosphatase | | | [facility] | | [...] + | [facility] | [address] | [place], [place] | [phone] | | [facility] | | [address] | | | - LABORATORY | | | | + + + + + | [facility] | [address] | [place], [place] | | | [facility] | | [address] [place] [address] | | | - LABORATORY | | [...] [address] | [place] | [phone] | | [facility] | | [address] | | | - LABORATORY | | | | + + + + + | [facility] | [address] | [place] | | | [facility] | | [address], [facility] | | | - [...] [address] | [place] | [phone] | | [facility] | | [address] | | | - LABORATORY | | | | + + + + + | [facility] | [address] | [place] | | | [facility] | | [address] | | | - LABORATORY [...] 8 | 7 - 18 mg/dL | [facility] | | | | | | [facility] | | | | | | [facility]ICAL | | | | | | CENTER - | | | | | | LABORATORY | | + + + + + + | Creatinine | 0.86 | 0.60 - 1.30 | [facility] | | | | | mg/dL | [facility] | | | | | | MEDICAL | | | | | | CENTER - | | | | | | LABORATORY | | + + + + + + | Estimated | >60Comment: For | >60 mL/min/A | [facility] | | | GFR | -Americans, | [...] + | [facility] | [address] | [place] | [phone] | | [facility] | | [address] | | | - LABORATORY | | | | + + + + + | [facility] | [address] | [place], [place] | | | [facility] | | [address] | | | - LABORATORY [...] + + | Performing | Address | City/[facility] | Phone Number | | Organization | | | | + + + + + | [facility] | [address] | [place] | [phone] | | [facility] | | [address] | | | - LABORATORY | | | | + + + + + | [facility] | [address] | [place] | | | [facility] | | [address] | | | - LABORATORY | | | | + + + + + documented in this encounter Visit Diagnoses Not on filedocumented in this encounter"
--- OUTSIDE RECORDS SUMMARY | ~2019-10-19 | XMS | Encounter Summary ---
Demographics + + + | Address | [address] | | | [place] [address] | + + + | Home Phone [...] + | Poncho Oquendo | ECON | [address] | | | | | [place] | | | | | [address] | | + + + + + | Marta Upton | ECON | [place] | | | | | [address] | | + + + + + Care Team Providers + +------+ + | Care Link Trainer Name | Role | Phone | [...] Description | +--------+---------+ + + + | 04/26/ | Surgery | [facility] | Pedro Green, | CYSTOSCOPY URETERAL | | 2019 | | REGIONAL SURGERY | DO [address] | STENT | | | | CENTER INTRA OP | [place] [address] | REMOVAL/REPLACEMENT | | | | [address] | [phone] | | | | | [place], [place] | | | | | | [address] | | | | | | [phone] | | | +--------+---------+ + + + [...] + documented in this encounter Discharge Instructions Cindy Ríos RN - 04/27/2019Formatting of this note might [...] lasts more than a day, a fever [id number] (38 C), or trouble urinating. Date Last Reviewed: 02/15/201619991880-94[address] [employer] [address] [place] [address], [place] [address]. All righ ts reserved. This information is [...] out of the urethra Date Last Reviewed: 02/15/201619993396-8110 [employer] [address] [place] [address]. All righ ts reserved. This information is [...] spouse. documented in this en counter H&P Notes Pedro Green DO - 04/27/2019 8:52 AM PDTFormatting of this note might be different fr om the original. [facility] Urology Primary Care Provider: [...] She had a s tent placed in 2016 due to extrinsic compression. She has tolerated this well. Her last exchange was at [facility] during a septic episode. Her last [...] and replacement; Surgeon: Pedro Green DO; [place] [facility] [place] HYSTERECTOMY LIVER SURGERY OTHER SURGICAL HISTORY UNLISTED PROCEDURE ARTHROSCOPY OTHER SURGICAL HISTORY MEDIPORT INSERTION SINGLE OTHER SURGICAL HISTORY HARDWARE PRESENT OTHER SURGICAL HISTORY Left 07/05/2018 CYSTOSCOPY W/ URETERAL STENT PLACEMENT - Procedure: CYSTOSCOPY - STENT; Surgeon: Cheikh Green DO; Location: [facility] MAIN OR; Service: Urology; [...] teral stent placement Surgeon: Pedro Green DO Research Executive(s): NA Anesthesia: General LMA Estimated Blood Loss: <10 [...] pause was performed. Following a preoperative pause, 21.5-Hebrew cystoscopic sheath with 30-degree lens was inse [...] was used to guide placement of the 7-Hebrew x 24 cm ureter al stent without [...] [address] | | | | | | [place] [address] | | | | | | [phone] | | | | | | | [...] | +---+--------+ documented in this encounter Results FL C-Arm (04/27/2019 10:26 AM PDT) + + [...] | + +--------+ +---------+------+------+ | iohexol (OMNIPAQUE 300) 300 | Given | 04/27/19 | 8.5 mLs | | | | mg/mL injection PRN, Starting | | 20 10:10 | | | | | 04/27/19 at 1010, Intra-op | | AM PDT | | | | + +--------+ +---------+------+------+ +---+---+ | | | +---+---+ + + [...]
--- OUTSIDE RECORDS SUMMARY | ~2019-10-19 | XMS | Encounter Summary ---
Demographics + + + | Address | [address] | | | [place] [address] | + + + | Home Phone [...] Team Providers + +------+ + | Care Ux Developer Name | Role | Phone | [...] | Medicine Clinic at | [address] | (Primary Dx); | | | | [facility] 4th Floor [address] | [address] [place], | Gallbladder cancer | | | | [address] | [place] [address] | ([facility]); Other | | | | Mailcode: [facility] | [phone] | specified | | | | [facility] | | pre-operative | | | | and Healing, | | examination | | | | Building 1,4th Floor | | | | | | [place], [place] | | | | | | [address] | | | | | | [phone] | | | +--------+---------+ + + + [...] Surgery Check in Locations Day Stay Unit [facility], fourth floor Room 0742 [facility] Day Stay [facility], fourth floor Admitting [facility], ninth floor [facility] Surgery Unit [facility], sixth floor Surgery Check in Time: [...] it is after office hours, call the [facility] pin ticket machine operator at [phone] and ask them to page him or h er. Preparing For Your Surgery Video -- 7 minutes of instructions! If you have access to the Internet and would like to review our instructional video about g etting ready for your procedure day, please follow these directions: Access the [facility] website [email or web address] --> POPULAR RESOURCES --> Patient Guide --> [...] JAYLA BARRON NP Referring Physician: Dr. Tai Stanton Primary Care Provider: Prudencio Isaac MD Reason [...] 2002 section 1998 Endoscopic sinus surgery 2008 Family History Problem Relation Diabetes Father Coronary [...] further investigation and manageme nt. A. Acute AK within 7 days: no B. Unstable angina/Recent AK (7- 30 days): no C. Decompensated CHF: [...] no Rate of cardiac , non fatal AK, non fatal cardiac arrest (RCRI) 0 risk [...] to this patient's care. JAYLA BARRON NP [facility] CLINIC [facility] PREOPERATIVE MEDICINE CLINIC [facility] [place] [address] I spent 20 minutes with the [...] body hygiene. All pre-procedure instructions given to e patient. All of patient's questions answered [...] | + +--------+ + + + | [place] [facility] | Routin | 04/27/2012 | [...] | | | LABORATORY | | | MICRONESIAN | | | SERVICES, | | | [...] [place] [facility] | [address] | [place] [address] | | | SERVICES, CORE | NEAL [...] | + + + + + | [facility] LABORATORY | [address] | [place] [address] | | | SERVICES, | [address] [...] | + + + + + | [facility] LABORATORY | [address] | [place] [address] | | | SERVICES, | [address] [...] view image for the detailed interpretation from Room n House results. | CARDIOLOGY | + + + + + + + + | Performing | Address | City/State/Zipcode | Phone Number | | Organization | | | | + + + + + | [facility] | [address] | [place], [place] | | | CARDIOLOGY | [address] | [address] | | + + + + + HEMOGLOBIN A1C, POC (04/27/2012 3:13 PM PDT) + +-------+ + + + | Component | Value | Ref Range | Performed | Pathologist | | | | | At | Signature | + +-------+ + + + | HEMOGLOBIN | 5.1 | 4.0 - 5.7 % | [facility], | | | A1C,POC | | | [...] + + | [facility] | [address] [facility] | [place] [address] | | | OF CARE TESTS | [...]
--- OUTSIDE RECORDS SUMMARY | ~2019-10-19 | XMS | Encounter Summary ---
Demographics + + + | Address | [address] | | | [place] [address] | + + + | Home Phone | | + + + | Preferred Language | Unknown | + + + | Marital Status | | + + + | Jain Affiliation | Unknown | + + + [...] + | Poncho Oquendo | ECON | [address] | | | | | [place] | | | | | [address] | | + + + + + | Marta Corbin | ECON | [place] | | | | | [address] | | + + + + + Care Team Providers + +------+ + | Care Windows Systems Architect Name | Role | Phone | [...] W | | | | | | [place] | | | | | | [place] [address] | | | | | | [phone] | | | +--------+ + + + [...] | | | | | [place] [address] | | | | | | [phone] | | | | | | | [...] Performed At | + + + | [facility] Diagnostic Imaging | [facility] | | Department [address] [place] [address] | [facility] | | [ rep ct [address]] [ rep [facility] | | st zip] Signed | - IMAGING | | | | | Patient Name: AURA CORBIN Physician: | | | QUAC.01 : 1960 Age: 52 Sex: F Unit #: [id number] | | | Exam Date: 03/19/13 [place]: [facility] | | | Report #: [id number] Page: | | | %(RAD)RES..mtdd.print.filter("pg") of %(RAD) | | | RES..mtdd.print.filter("tpg") | | | | | | Accession Number: [id number] | | | CT ABDOMEN WITH CONTRAST [...] | | | Transcribed Date/Time: 03/19/2013 18:25 [facility]: | | | <<Signature on File>> | | | Mathieu | | | Emir Brasher MD03/19/131940 <Electronically signed by Mathieu Field | | Roopa Brasher MD> Mathieu Brasher MD 03/19/13 1446 | | | [facility]: [employer] Hbnlhcddpuhkr55/03/14 1825 | | | Epifanio Najera MD | | + + + + + + + + | Performing | Address | City/State/Zipcode | Phone Number | | Organization | | | | + + + + + | [facility] | [address] | [place] | [phone] | | [facility] | | [address] | | | - IMAGING | | | | + + + + + documented in this encounter Visit Diagnoses Not on filedocumented in this encounter
--- OUTSIDE RECORDS SUMMARY | ~2019-10-19 | XMS | Encounter Summary ---
Demographics + + + | Address | [address] | | | [place] [address] | + + + | Home Phone [...] Team Providers + +------+ + | Care Hospitality Housekeeper Name | Role | Phone | [...] Mailcode: | | | | | | [place], [place] | [address] | | | | | | [address] | for Health | | | | | | Phone: | and Healing, | | | | | | [phone] | Building 1, | | | | | | Fax: | 7th Floor | | | | | | [phone] | [place], [place] | | | | | | | [address] | | | | | | | Phone: | | | | | | | [phone] | | | | | | | Fax: | | | | | | | [phone] | +--------+--------+ + + + + Encounter Details +--------+---------+ + + + | Date | Type | Department | Care Team | Description | +--------+---------+ + + + | 11/01/ | Office | Hematology/Medical | Elva Grey, | Gallbladder cancer | | 2013 | Visit | Oncology at [facility] | [address] | (HCC) (Primary Dx) | | | | [address] | [address] | | | | | Mailcode: CH7M | [place] [address] | | | | | [facility] | [phone] | | | | | and Healing, | | | | | | [facility] 1, 7th | | | | | | Floor [place], [place] | | | | | | [address] | | | | | | [phone] | | | +--------+---------+ + + + [...] of this note might be different from [facility] original. Onc Hx: T2N1M0 gallbladder cancer, s/p [...] negative for malignancy - Adjuvant chemotherapy recommended: [place]/Cap for 4 cycles then restaging - 09/13/12-10/23/12 [...] ultrasound, this was normal. No admission to [facility], had some neupogen shots during her course. [...] 12 hours in a ny 24-hour period. ondansetron ODT 4 mg Oral [...] healthy lifestyle, I did not recommend a ny specific supplementation. Return if symptoms worsen or fail to improve. Will have follow up locally documented in this encou nter Procedure Notes Other, Faculty - 12/27/2012 7:08 AM PSTAssociated Order(s): RADIOLOGY ther, Faculty - 12/27/2012 7:07 AM PSTAssociat ed Order(s): LAB REPORTS doc umented in this encounter Miscellaneous Notes Scan - Other, Faculty - 03/01/2013 7:06 AM PSTElectronically signed by Faculty Other at 7:06 AM PSTScan - Other, Faculty - 12/27/2012 7:08 AM PST can - Other, Faculty - 12/06/2012 9:00 AM PDTElec tronically signed by Faculty Other at 12/06/2012 9:00 AM PDTScan - Other, Faculty - 013 10:34 AM PDT can Lissa alvarado Faculty - 11/07/2012 2:35 PM PDT 2: 35 PM PDTdocumented in this encounter Plan of [...] + + | Yamila Benitez - 12/27/2012 7:08 AM PST | + [...]
--- OUTSIDE RECORDS SUMMARY | ~2019-10-19 | XMS | Encounter Summary ---
Demographics + + + | Address | [address] | | | [place] [address] | + + + | Home Phone [...] Providers + +------+ + | Care Patient Services Clerk Name | Role | Phone | [...] 2014 | | Clinics at S | [place], [place] | | | | | [facility] [address] | [address] | | | | | [address] [facility] | | | | | | Health and Healing, | | | | | | Building 2 | | | | | | [place], [place] | | | | | | [address] | | | | | | [phone] | | | +--------+ + + + [...]
--- OUTSIDE RECORDS SUMMARY | ~2019-10-19 | XMS | Encounter Summary ---
Demographics + + + | Address | [address] | | | [place] [address] | + + + | Home Phone [...] | [facility] | | | [place] | + + + | Organization | [facility] | | | and [place] | + + + | Address | Unknown | + + + | Phone | Unavailable | + + + Support + + + + + | Name | Relationship | Address | Phone | + + + + + | Poncho Oquendo | ECON | [address] | | | | | [place] | | | | | [address] | | + + + + + | Marta Upton | ECON | [place] | | | | | [address] | | + + + + + Care Team Providers + +------+ + | Care Motor Polarizer Name | Role | Phone | + +------+ + | No, Physician | PCP | Unavailable | + +------+ + Reason for Visit + +--------+ + | Reason | Onset | Comments | | | Date | | + +--------+ + | Appointment | 09/16/ | Reschedule 09/17 f/u | | | 2020 | | + +--------+ + Encounter Details +--------+ + + + + | Date | Type | Department | Care Team | Description | +--------+ + + + + | 09/16/ | Telephone | [facility] | Pedro Green, | Appointment | | 2019 | | UROLOGY [address] | DO [address] | (Reschedule 09/17 | | | | [address] | [place] [address] | f/u) | | | | [place], [place] | [phone] | | | | | [address] | | | | | | [phone] | | | +--------+ + + + [...] Notes Telephone Encounter - Nikky Burr - 09/18/2019 8:40 AM PDTReturned call and reschedu led follow up elephone E aranzauntdeana - Radha Orr I - 09/17/2019 3:57 PM PDTMaureen, is calling again for Appointme nt (Reschedule 09/17 f/u) and would like a call back. Additional Call Details: Please call back at: [phone] elephone Encounter - Nikky Bond - 09/17/2019 11:54 AM PDTReturned call and left voicemail to reschedule appo intment. Appointment has been canceled for tomorrow per patient request elephone Encounter - Radha Orr I - 04/2019 9:14 AM PDTMaureen, is calling regarding Appointment (Reschedule 09/17 f/u) and would like a call back. Additional Call Details: Conflicting appointment. Please call back on mobile number listed . If this is a symptom based call, was patient offered triage? Not Applicable If this is a symptom based call and you were unable to immediately transfer the call to a jaclyn maradiaga residence counselor was caller made aware that if at [...] [address] | | | | | | [place] [address] | | | | | | [phone] | | | | | | | | +--------+---------+ + + + documented as of this encounter Visit Diagnoses Not on filedocumented in this encounter"
--- OUTSIDE RECORDS SUMMARY | ~2019-10-19 | XMS | Encounter Summary ---
Demographics + + + | Address | [address] | | | [place] [address] | + + + | Home Phone [...] Team Providers + +------+ + | Care Snowmaker Name | Role | Phone | + [...] | | | Reconstructive | [place], | | | | | Services at [facility] | [place] [address] | | | | | [address] | [phone] | | | | | [facility] | | | | | | and Healing, | | | | | | Building 1, 5th | | | | | | Floor [place], [place] | | | | | | [address] | | | | | | [phone] | | | +--------+ + + + [...] Notes Telephone Encounter - Radha Peñaloza - 07/01/2008 12:32 PM [facility] Ms. Upton, thank you f or your email. You will received printed instructions on postop care. Basically, you should avoid bending over at the waist and not lift anything over 10 lbs for one week. Sleep with your head geovanni vated on 3 pillows for one week. We will provide you with some saline nasal sprays and inst ructions on use. You will receive prescriptions for antibiotics and pain meds. Your nose will be in a cast with some bandages for one week. You need to keep this area dr jorge during that time. You may have black eyes but it is unlikely. The stitches will mostly be the dissolving type. Yes, there is a pharmacy in the building. I hope this information is helpful to you. Warm regards, Virgilio Buck MD | professor Facial Plastic and Reconstructive Surgery [facility] [phone] | [email or web address] This e-mail, facsimile, or letter and any [...] the sender. Thank you. From: Aura Upton [[email or web address]] Sent: Tuesday, June 24, 2008 11:45 AM To: Virgilio Buck Cc: ; Radha Peñaloza Subject: RE: Request for Information Dr. Buck: The article you referred me to I had previously reviewed, as it described the procedure Dr. Olivia had planned to use. After additional research, I came across another article, which I think may better describe what you ll be doing, including the use of Alloderm. I have i ncluded the article for your information. Let me know if I m off base Here are some p ost-procedure questions I have: Can you provide me with a list of post-operative instructions? Will my nose be bandaged or in a cast? Will I have black eyes? Will the stitches be self-dissolving, or will they need to be removed the following week? Is there a pharmacy in the building? If not, can you provide me with pain medication to l ast me until I get home on Tuesday? I m sure you already provided me with some of this information when we met on 06/10, but t he appointment was a bit overwhelming for me and I can t remember everything discussed. We are now 10 days out from this surgery, and I although I am not looking forward to it, I sure am looking forward to the repair of this perforation! Thank you for your time, Dr. Ambrocio rodriguez! Maureen documented in this encounter Plan of Treatment Not on filedocumented as of this encounter Visit Diagnoses Not on filedocumented in this encounter"
--- OUTSIDE RECORDS SUMMARY | ~2019-10-19 | XMS | Encounter Summary ---
Demographics + + + | Address | [address] | | | [place] [address] | + + + | Home Phone | | + + + | Preferred Language | Unknown | + + + | Marital Status | Single | + + + | Holiness Affiliation | NON | + + + [...] Team Providers + +------+ + | Care Ball Warper Tender Name | Role | Phone | [...] | Event | [facility] | Hiren Coello MD | | | | | [facility] | Rubio Acosta, | | | | | Hospital Admitting | | | | | | Desk Located on the | | | | | | 9th floor | | | | | | [place], [place] | | | | | | [address] | | | +--------+ + + + + Anesthesia Record + + + + + | Procedure Name | Responsible | Anesthesia Start | Anesthesia Stop Time | | | Anesthesiologist | Time | | + + + + + | DIAGNOSTIC | Hiren M | 04/28/12 0703 | 04/28/12 1433 [...] by | | D - | | Rubio Acosta, | Rubio Acosta, | | Periph | | MD | MD | | eral | | | | | Line | | | | +--------+ + + + | RETIRE | 04/28/12; 702; 04/29/12; 0658 | 04/28/12702 by | 04/29/12657 by | | D - | | Rubio Acosta, | Marina Borges RN | | Arteri | | MD | | | al | | | | | Line | | | | +--------+ + + + | RETIRE | 04/28/12; 0703; 12/02/16 | 04/28/12 0703 by | 12/02/16 1622 by | | D - | (Automatic cleanup per RA | Rubio Acosta, | Discontinued After | | Periph [...] D - | Right; Neck; Jugular | Rubio Acosta, | Elva Yang RN | | Centra | | MD | | | l Line | | | | +--------+ + + + | RETIRE | 04/28/12; 08; 04/29/12; 1729; | 04/28/12819 by | 04/29/121729 by | | D - | 14; Left; Forearm | Rubio Acosta, | Linden Yadav RN | | Periph | | MD | | | eral | | | | | Line | | | | +--------+ + + + | RETIRE | 04/28/12; 0821; 04/29/12; 1552; | 04/28/12820 by | 04/29/12 155 by | | D - | 14; Right; Forearm | Rubio Acosta, | Elva Yang RN | | [...] | D - | (ETT) | | Rubio Acosta, | | ETT/Or | | | [...] encounter OR Notes Anesthesia Postprocedure Evaluation - Rubio Acosta Md - 04/28/2012 4:34 PM PDTFormat ting of this note might be different from the original. Aura Upton [id number] No Known Allergies Past Surgical History Procedure Date Tubal ligation 2002 section 1998 Endoscopic sinus surgery 2008 Evaluation Patient personally seen and evaluated for recovery from anesthesia care, ROS including card , resp, Neuro, and GI w/o evidence of adverse effects and VS including temperature and hydra tion status are normal Complications nesthesia Preproce dure Evaluation - Rubio Acosta Md - 04/27/2012 6:39 PM PDTFormatting of this note lea ht be different from the original. 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 Not to exceed 1 0 tablets per any 24 hour period. (Not to exceed 3250 mg of acetaminophen from all products per 24 hour period.) prn No results found for this basename: rate, atrialrate, pr, qrs, qt, qtc, paxis, raxis, taxis , ekgdx Preoperative Adult Anesthesia Plan Last edited 04/27/12 8803 by Kami Mejia NP ROS Pulmonary: Within Defined Limits except as noted [...] or sores No hx MRSA/VRE/Active skin infection Physical Exam General: Patients general appearance: Healthy, Alert, No [...] Color: pink Turgor: turgor normal Implants: None, Anesthesia Plan Comments ASA ASA 3 NPO Status NPO Status: NPO by protocol Monitors/Lines to be used Art line, CVP and Standard Anesthetic Consideration Induction intravenous induction Anesthetic Technique General; Post-Op Pain Plan epidural; Blood Products Interpretive Services Informed Consent PARQ discussed with: patient, Procedures, Alternatives, Risks, and Questions discussed ; ; Date Consent Series Given: 04/28/2012 6:52 AM Code status in OR Patients Code Status in OR: FULL 04/28/2012 6:52 AM documented in t his encounter Miscellaneous Notes Epidural Procedure - Rubio Acosta Md - 04/28/2012 9:54 AM PDTPROCEDURE NAME Epidural or Caudal Information Epidural Type: Epidural Placement Block indication: Post-op pain management per surgeons request to facilitate recovery Location performed: Pre-Op The patient was identified, the site marked,, full PARQ done Adult or Pediatric: Adult Procedure Position: Sitting, Epidural approach: Paramedian, Monitors used: NIBP, SpO2 and EKG, Supplimental O2 Given, Prep: ChloraPrep Technology Used: None Needle Needle Type: Tuohy Needle Gauge: 17 Needle insertion depth 8 cm Catheter depth 14 cm 1st attempt Parasthesia: Paresthesia noted: No Negative for blood Vertebral Interspace: T7-8 CSF: A spiration negative for CSF, Sensory Band:Side: bilateral, Tested: Temperature sensation to cold spray, Upper Level: T4, Lower Band:T10 KHANG: saline Assessment test dose given, See MAR for Drug and Dose Complications: None, Technical Difficulty: Easy Intended Analge jeronimo: Satisfactory block in appropriate fashion Sensory Assessment: Decreased in area of bloc k Motor Assessment: Intact; Narrative Attending physically present Attending: HIREN BELTRAN MPerformed by Resident Resident : RUBIO ACOSTA ne Central Anirudh ous Line - Rubio Acosta Md - 04/28/2012 9:53 AM PDTProcedure Information Central Venous Line Double-Stick: No Type Catheter:Triple lumen Location Performed: OR, Indications: Assessment of intravascular volume and Administration of vasoactive medication s Informed Consent: Included in anesthesia consent, Protective Barrier: Cap, Mask, Gown, Full-body drape, Hand scrub and Gloves Vein locater technique: Ultrasound Guidance Ultrasound image: Printed and placed in patient's chart Prep: ChloraPrep, Draped: Fully draped Anesthesia Method: General anesthesia, Insertion side: Right Insertion Site: Internal Jugular, Access device: 18g, angiocath Position confirmation: Ultrasound, Confirmed by manometry and Confirmed by transducer Catheter size: 7 Fr Catheter length: 15/16 cm Insertion distance: 16 cm Port flush: Saline All Ports Aspirated for Blood Line secured with: Suture Procedure Documentation Introducer Information Assessment Number of attempts: 1st Complications: None Attending physically present Attending: HIREN BELTRAN Performed by Resident RUBIO ACOSTA AMArterial Line - Rubio Acosta Md - 04/28/2012 9:52 AM PDTProcedure ART LINE Procedure Information Inserted: After Induction 5 minutes to perform. Type Catheter: Arrow kit Indications: Beat to beat blood pressure monitoring and Frequent lab draws Location Performed: OR Informed Consent: Included in anesthesia consent Protective Barrier: Cap, Mask, Hand scrub and Sterile Gloves Draped: Partially draped Anesthesia Method: General anesthesia Insertion side: Right Insertion Site: Radial Access device: 20g Line secured by:Taped Assessment Number of attempts: 2nd Complications: None Assessment: Catheter connected to pressure line and flushed, catheter manually flushed, Arturo erated procedure well and Perfusion checked distal to catheter Attending physically present Attending name: HIREN BELTRAN Performed by Resident Name: RUBIO ACOSTA ne airway miguelangel Rubio Reid Md - 04/28/2012 9:46 AM PDTProcedure Reason for Intubation: For surgical procedure, Location Performed: OR , Patient was preoxyg enated Mask Ventilation Grade 1 - Ventilated by mask Rapid Sequence Induction: No Intubation Blade type: Nicole , Blade size: 3, Atraumatic laryngoscopy: Atraumatic Laryngoscopy, In tubation adjuncts: N/A , Laryngoscopic view: Grade I, Fiberoptics used: N/A , Number of Atte mpts: 1, Positive for EtCO2: Yes, Breath sounds: Bilateral and equal ETT Ett Adult: Single-lumen cuffed ETT Size: 7 ETT secured with: adhesive tape Depth at Lip: 21 cm Airway leak: No LMA Narrative Attending physically present Attending: HIREN BELTRAN Performed by Resident RUBIO [place]ORTH [facility] PreOp Note - Rubio Acosta Md - 04/27/2012 6:39 PM PDT ROS Pulmonary: Within Defined Limits except as noted below no cough no shortness of breath no wheezing Pt. Has no asthma No dx of sleep apnea Cardiovascular: Exercises: Can walk >4-5 blocks and up 1-2 flights of stairs without stoppi ng. >4 Mets Within Defined Limits except as noted below Functional Capacity: Moderate - chest pressure and syncope no CAD no CHF no pacemaker GI/Hepatic: Within Defined Limits except as noted below no GI Bleed no GERD No liver dis ease no hepatitis : S/p and tubal ligation Within Defined Limits except as noted below Endo: Within Defined Limits except as noted below Neurological: Within Defined limits except as noted below no seizures no HX CORTICOSTEROID no psychiatric problem no dementia Pain: low back. MS: Reports chronic low back pain. Says she takes 1 vicodin/ day Within Defined Limits exce pt as noted below no arthritis Heme/Onc: Within Defined Limits except as noted below Pt. has: no active bleeding no Bleedi ng diathesis / thrombotic bleeding Malignancy: no cancer, Location: Metastasis: Skin: Within Defined Limits except as noted below No open wounds or sores No hx MRSA/VRE/Ac tive skin infection Physical Exam General: Patients general appearance: Healthy, Alert, No distress and Cooperative Head & Neck/Airway: Normal appearing ears and nose. Neck ROM: full TM Distance:Normal Dentition: dental implants, bridges or caps present Chahal: No Mallampat i: II Mouth Opening: > = 3 cm C-Spine: normal Neck Anatomy: Normal Jaw Protrusion: Normal, lower incisors can protrude past upper incisors Lung Exam: breath sounds normal Cardiac: Rhythm: regular Rate: normal Abdominal: General Findings: Deferred Musculoskeletal: Neuro/Psych: alert Findings: Alert, oriented to person, place, time and Normal affect Integument: - lesion, rash and open wounds Color: pink Turgor: turgor normal Implants: None, MC/ANE PreOp Note - Kami Mejia NP - 04/27/2012 4:13 PM PDT ROS Pulmonary: Within Defined Limits except as noted below no cough no shortness of breath no wheezing Pt. Has no asthma No dx of sleep apnea Cardiovascular: Exercises: Can walk >4-5 blocks and up 1-2 flights of stairs without stoppi ng. >4 Mets Within Defined Limits except as noted below Functional Capacity: Moderate - chest pressure and syncope no CAD no CHF no pacemaker GI/Hepatic: Within Defined Limits except as noted below no GI Bleed no GERD No liver dis ease no hepatitis : Within Defined Limits except [...] below Pt. has: no active bleeding no Bleedi ng diathesis / thrombotic bleeding Malignancy: no cancer, Location: Metastasis: Skin: Within Defined Limits except as noted below No open wounds or sores No hx MRSA/VRE/Ac tive skin infection Physical Exam General: Patients general appearance: Healthy, Alert, No distress, Cooperative and Age appr opriate Head & Neck/Airway: Normal appearing ears and nose. Neck ROM: full Neck Circumference: 34 c m. TM Distance:Normal Dentition: dental implants, bridges or caps present Chahal: No Mallampat i: III Mouth Opening: > = 3 cm C-Spine: normal Neck Anatomy: Normal Jaw Protrusion: Normal, lower incisors can protrude past upper incisors Lung Exam: No respiratory distress. Normal breathing pattern. breath sounds normal Cardiac: No murmurs, gallops or rubs. Rhythm: regular Rate: normal Abdominal: General Findings: Deferred Musculoskeletal: Findings: tone normal Neuro/Psych: No focal neuro deficits; Alert and appropriate; nl affect. alert Findings: Al ert, oriented to person, place, time and Normal affect Integument: No open rashes or lesions noted. - lesion, rash and open wounds Color: pink Turgor: turgor normal Implants: None, documented in this enc nter Plan of Treatment Not on filedocumented [...] 12:07 | | | | | Starting Tue04/28/12 at 0921, | | PM PDT | | | | | Until Tue04/28/12 at 1421 | | | | | [...]
--- OUTSIDE RECORDS SUMMARY | ~2019-10-19 | XMS | Encounter Summary ---
Demographics + + + | Address | [address] | | | [place] [address] | + + + | Home Phone [...] + | Poncho Oquendo | ECON | [address] | | | | | [place] | | | | | [address] | | + + + + + | Marta Upton | ECON | [address] | | | | | [address] | | + + + + + Care Team Providers + +------+ + | Care Center Punch Operator Name | Role | Phone | + +------+ + PCP | Unavailable | + +------+ + Reason for Visit +--------+--------+ + | Reason | Onset | Comments | | | Date | | +--------+--------+ + | Other | 05/01/ | | | | 2013 | | +--------+--------+ + Encounter Details +--------+ + + + + | Date | Type | Department | Care Team | Description | +--------+ + + + + | 05/01/ | Telephone | [facility] | Reinaldo | Eli | | 2013 | | MED [facility] | Epifanio Soler MD [address] | | | | | [facility] [address] | [facility] | | | | | [address] | [address] [place], [place] | | | | | [place] [address] | [id number] | | | | | [phone] | | | +--------+ + + + [...] this encounter Miscellaneous Notes Telephone Encounter - Genevieve Herrera RN - 05/01/2013 12:56 PM PDTFYI 05/01/13 Called [facility] [employer] and verified with pharmacist that Aura's vicodin can be 5/325 vs 5/500.K H elephone Encounter - Gloria Ramirez - 05/01/2013 12:09 PM PDTPharmacist calling from [employer]. Dr. Najera has prescribed Vicodin 5/500. But her insurance will not cover this medication. Is Dr. Ward willing to change this to Vicodin 5/325 so her insurance will pay? Héctor whiting call back. documented in this encounter Plan of Treatment +--------+---------+ + + + | Date | Type | Specialty | Care Team | Description | +--------+---------+ + + + | 10/29/ | Office | Urology | Pedro Green, | | | 2019 | Visit | | DO Vaishali HIGHTOWER | | | | | | [place] [address] | | | | | | [phone] | | | | | | | | +--------+---------+ + + + documented as of this encounter Visit Diagnoses Not on filedocumented in this encounter"
--- OUTSIDE RECORDS SUMMARY | ~2019-10-19 | XMS | Encounter Summary ---
Demographics + + + | Address | [address] | | | [place] [address] | + + + | Home Phone [...] Team Providers + +------+ + | Care Cook Boat Name | Role | Phone | + [...] MD | Perforation of Nasal | | 2009 | Visit | Facial Plastics & | [address] | Septum (Primary Dx) | | | | Reconstructive | Velma Whitfield [place], | | | | | Services at [facility] | [place] [address] | | | | | [address] | [phone] | | | | | [facility] | | | | | | and Healing, | | | | | | Building [address], [address]th | | | | | | Floor [place], [place] | | | | | | [address] | | | | | | [phone] | | | +--------+---------+ + + + [...] Surgery Dept. of Otolaryngology/Head and Neck Surgery [facility] tel fax email [email or web address] documented in this encounte r Plan of Treatment Not on filedocumented as of this encounter Visit Diagnoses + + | Diagnosis | + + | Perforation of nasal septum - Primary Other diseases of nasal cavity and sinuses | + + documented in this encounter"
--- OUTSIDE RECORDS SUMMARY | ~2019-10-19 | XMS | Encounter Summary ---
Demographics + + + | Address | [address] | | | [place] [address] | + + + | Home Phone [...] | + + +---------+ + | Elsy Corbin | ECON | Unknown | | + + +---------+ + Care Team Providers + +------+ + | Care Microsoft Architect Name | Role | Phone | [...] Description | +--------+---------+ + + + | 04/28/ | Surgery | 6A Intra Op 3181 | Cornelia Stanton, | DIAGNOSTIC | | 2012 | | HIEN Carreon | [address] [facility] | LAPAROSCOPY WITH | | | | Rd [facility] | [facility] | BIOPSY, OPEN SEGMENT | | | | Hospital Admitting | [place], [place] | 4B/5 LIVER | | | | Desk Located on the | [phone] | RESECTION, PORTAL | | | | 9th floor | [phone] | LYMPHADENECTOMY | | | | [place], [place] | | Specimens x 6 (FS) | | | | [phone] | | | +--------+---------+ + + + [...] MARCO ANTONIO BEATTY NP Attending Physician: Cornelia Stanton MD PCP: Prudencio Isaac MD Admission Date: 04/28/2012 Discharge Date: 04 May 2012 Diagnoses Principal Final Diagnosis: 1) *Gallbladder cancer Additional Diagnoses: 2) Post-operative pain Procedures 04/28/12: Diagnostic laparoscopy with biopsies, intraoperative ultrasound, partial segment 4B and 5 liver resection (gallbladder fossa with en bloc portal lymphadenectomy). Brief Hospital Course Ms. Corbin is a 51-year-old woman with an incidental finding of T2 gallbladder adenocarci noma at her recent laparoscopic cholecystectomy for acute cholecystitis. Her pathology was reviewed at [facility]. She underwent a CT scan, which showed [...] her follow up on 05/[address] Stanton. At time of discharge we are also working on arranging an appointm ent with [facility] Oncology for treatment planning. FINAL PATHOLOGY: Final [...] at your clinic appointment or call the inic. Activity Showers are permitted, no soaking [...] severe diarrhea.During normal business hours please call [facility] dangelo .For 'after hours' URGENT problems please call the [facility] nitroglycerin separator operator at and ask for the "Blue [...] ESTS WILL BE TAKEN ON FRIDAYS OR S. Prescriptions sent by mail will take 3 [...] None Your Follow-Up Plan Follow up with [facility] HEMATOLOGY ONCOLOGY [facility]. (Please expect a call from the Oncology clini c in the next several days to schedule an appointment with either Dr. Grey or Dr. Ledesma ) Contact information: [address] [facility] [address] Future Appointments Date & Time Provider Department Dept Phone Center 05/17/2012 11:30 AM CORNELIA STANTON MD [facility] [phone] [facility] Discharging Physician: MARCO ANTONIO BEATTY NP Attending Physician: MD Marco Antonio Mauricio RN, MSN, NARCOTICS INVESTIGATOR [facility] Blue Surgery Pager# [phone] 9:37 AM 05/04/2012 documented in this enc [...] Author: MARCO ANTONIO BEATTY NP Attending: CORNELIA STANTON MD ID: Maria Elena Gonzalezjovonloi Interval Hx: no events overnight. Patient understandably upset over pathology report discus sed last night with Dr. Stanton. Pain well controlled. Patient Active Hospital Problem [...] Min: 97 % Max: 99 % Date 05/03/12 0700 - 05/04/12 0659 05/04/12 07 - 05/05/12 0659(Discharged) Shift 2451-3623 7101-3843 2359-4702 Daily Total 6119-9991 1949-4310 5069-1856 Daily Total I N T A K E P.O. 925 901 147 0134 500 500 I.V. 5 10 15 Shift Total 930 738 725 1105 500 500 O U T P U T Urine 1050 7736 106 8537 400 400 Urine 1050 0996 718 9891 400 400 Other Stool 1 1 Shift Total 1050 5274 218 5579 400 400 NET -120 -1090 205 -1005 100 100 General: Awake, alert, and oriented x4, no acute distress, VSS HEENT:NC/AT, anicteric Pulm: Respirations even/unlabored, chest expansion symmetrical Cardio: RRR Abdomen: Soft. Appropriately tender to palpation. Non-distended. MS: Moves all extremities well, Warm and well perfused Derm: No erythema, edema, ecchymosis Wound: abdominal incision with rosie c/d/i Activity: oob ad mary Assessment: Maria Elena Corbin, HD#6, with Gallbladder cancer S/p Diagnostic laparoscopy with biopsies, intraoperative ultrasound, partial segment 4B and 5 liver resection Plan: 1. S/p liver resection: -incision healing well -tolerating regular diet -+BM -Pathology discussed last night with Dr. Stanton -will arrange appointment with Oncology as an outpatient 2. Acute post-operative pain: -gabapentin started with improved pain relief -continue Oxycodone 5-15mg q3 PRN Prophylaxis: Lovenox 40mg QHS Anticipated date of discharge: today Patient was discussed with: Dr. Stanton Attending Physician: Dr. Romy Beatty RN, MSN, NARCOTICS INVESTIGATOR [facility] Blue Surgery Pager# [phone] 12:54 PM 05/04/2012 Current Inpatient Medications Medication [...] Parish Arias MD - 5:51 AM PDT [facility] Department of Surgery Blue Surgery Progress Note Author: Parish Blackburn MD Attending Physician: Cornelia Stanton MD 05/03/2012 SUBJECTIVE: Interval history: - Tolerating [...] index is 33.07 kg/(m^2). Date 04/29/12699 - 04/30/1265804/30/12699 - 05/01/12 0659 Shift 4637-1825 2251-7041 3986-0779 Daily Total 3440-5755 0039-3074 6943-5653 Daily Total I N T A K E P.O. 620 233 970 3697 P.O. 620 459 748 8753 I.V. 1977.33 977.5 982.5 3937.33 0 0 [...] O U T P U T Urine 792 979 2964 2004 I/O Urinary Drain Output (Urinary Cath Placement López) 104 867 9486 2004 Shift Total 182 956 0596 2004 NET 2415.83 837.5 307.5 3560.83 0 0 Physical Exam: General: NAD Cardiovascular: RRR Respiratory: No increased WOB Abdominal: Incision c/d/i, with rosie in place. Abdomen soft, ND, mildly tender Extremities: WWP Labs/Cultures/Pathology: Chemistries: Last 72 Hours (or 3 results): Recent Labs Basename 04/30/12 0842 04/30/12 0642 04/29/1214204/28/12 1434 NA -- 136 138 140 K [...] Studies: No new imaging ASSESSMENT: Maria Elena Corbin is a 51 y.o. female patient POD [...] tomorrow Parish Blackburn MD Surgery, R1 Pager: [phone] Silvia Mckeon NP - 05/01/2012 2:19 PM PDTPain fairly well controlled on oral medications. No longer nauseated, tolerating 10 mg oxycodone Epidural catheter discontinued, tip intact. APS will sign off, please call us back if there are any pain related concerns for us to add ress. Silvia Del Toro NP Adult Pain Service Pager [phone] Team Pager [phone] Silvia Mckeon NP - 05/01/2012 8:56 AM [...] since last APS visit: Epidural weaning. Ms. Corbin describes her pain at the level of: right abdomen Pain Score 2/10 (at rest), 8/10 (cough, deep breath, movement). Ms. Corbin is not entir traci satisfied with current [...] NG/OG tube in place: no Assessment: Ms. Corbin rates her pain relief as fair. My [...] have included my personal review of Ms. Corbin's history and ph ysical examination. I also used the following components in my medical decision making: Laboratory studies reviewed. Review and summary of old medical records (source: [facility]), as summarized in the body of the note. SILVIA DEL TORO NP BILLING INFORMATION [facility] DEPARTMENT: [phone] Place of Service:- Inpatient Date of Service: 05/01/2012 CSN: [id number] Suggested Modifier: None Suggested CPT: 26605 - Daily mgmt epidural/subarachnoid drug administration Prolonged service: n/a Parish Arias MD - 05/01/2012 5:44 AM PDT [facility] Department of Surgery Blue Surgery Progress Note Author: Parish Blackburn MD Attending Physician: Cornelia Stanton MD 05/01/2012 SUBJECTIVE: Interval history: - Pain [...] mg 20 mg Intravenous Q12H 20 mg (04/30/12 2203) potassium & sodium phosphates (aka NEUTRA-PHOS, PHOS-NAK) 280-160-250 mg packet 1 Packe t 1 Packet Oral TID senna-docusate (aka SENOKOT S) 8.6-50 mg 1 Tab 1 Tab Oral BID PRN Medications Medication Dose Route Frequency Last Rate acetaminophen (aka OFIRMEV) IV 1,000 mg 1,000 mg Intravenous Q8H PRN 1,000 mg ( 3 2141) nalbuphine (aka NUBAIN) injection 2.5 mg 2.5 [...] index is 34.97 kg/(m^2). Date 04/29/12699 - 04/30/1259 04/30/12699 - 05/01/12 0659 Shift 6666-4476 4630-2738 3373-0124 Daily Total 6393-8137 3144-6910 4973-3074 Daily Total I N T A K E P.O. 620 268 280 6226 P.O. 620 798 913 1264 I.V. 1977.33 977.5 982.5 3937.33 0 0 [...] O U T P U T Urine 489 708 9805 2004 I/O Urinary Drain Output (Urinary Cath Placement López) 676 967 6829 2004 Shift Total 087 531 7097 2005 NET 2415.83 837.5 307.5 3560.83 0 [...] Studies: No new imaging ASSESSMENT: Maria Elena Corbin is a 51 y.o. female patient POD 3 s/p partial liver resection and en bloc portal lymphadenectomy who is doing well PLAN: 1. POD 3: Transition to oral pain meds, epidural perAPS. D/c López today. Ambulate. 2. GI: Advance to FLD 3. PT/OT 4. Incentive spirometry 5. Proph: lovenox 40mg qhs 6. Dispo: pending clinical course Parish Blackburn MD Surgery, R1 Pager: [phone] Parish Arias MD - 11:59 AM PDT [facility] Department of Surgery Blue Surgery Progress Note Author: Parish Blackburn MD Attending Physician: Cornelia Stanton MD 04/30/2012 SUBJECTIVE: Interval history: - Pain well controlled with epidural - No nausea vomiting - Has not been ambulating - Tolerating clears - No flatus Meds: Continuous Medications Medication Dose Route Frequency Last Rate bupivacaine 0.05 %-HYDROmorphone 20 mcg/mL epidural infusion Epidural CONTINUOUS dextrose 5%-NaCl 0.45%-KCl 20 mEq/L IV infusion 75 mL/hr Intravenous CONTINUOUS 75 mL/ hr (04/30/12 0906) Scheduled Medications Medication Dose Route Frequency Last Rate enoxaparin (aka LOVENOX) injection 40 mg 40 mg Subcutaneous QPM famotidine in NS (aka PEPCID) IV 20 mg 20 mg Intravenous Q12H 20 mg (04/30/12 0906) magnesium sulfate IV (premade) 1 g 1 [...] index is 33.45 kg/(m^2). Date 04/29/12699 - 04/30/12 0659 04/30/12699 - 05/01/12 0659 Shift 5009-8259 9115-0353 6027-1095 Daily Total 4196-4165 5669-0078 7238-6070 Daily Total I N T A K E P.O. 620 991 821 7921 P.O. 620 729 318 2382 I.V. 1977.33 977.5 982.5 3937.33 0 0 [...] O U T P U T Urine 117 701 6276 2004 I/O Urinary Drain Output (Urinary Cath Placement López) 950 800 6398 2004 Shift Total 868 003 4878 2005 NET 2415.83 837.5 307.5 3560.83 0 [...] Studies: No new imaging ASSESSMENT: Maria Elena Corbin is a 51 y.o. female patient POD 2 s/p partial liver resection and en bloc portal lymphadenectomy who is doing well PLAN: 1. POD 2: continue epidural per APS. Continue López today. Encourage ambulation. Anatoliy johnsony d/ryder López tomorrow 2. GI: Continue sips of clears until flatus 3. PT/OT 4. Incentive spirometry 5. Proph: lovenox 40mg qhs 6. Dispo: pending clinical course Parish Blackburn MD Surgery, R1 Pager: [phone] Sasha Antony MD - 04/30/2012 7:03 AM PDT INPATIENT ADULT PAIN SERVICE NEURAXIAL BLOCK PROGRESS NOTE 04/30/2012 EPIDURAL DAY # 2 POD# 2 Status post: diagnostic lsp with biopsies, intra-opertive ultrasound, partial 4b & 5 liver resection (gallbladder fossa) with en bloc portal lymphadenectomy Diagnosis: Gallbladder CA Last seen by APS yesterday, at which time our recommendations were: Ms. Corbin rates her pain relief as fair. My personal assessment is concordant with this evaluation. We have given her a 5 ml bolus w hile in the room. If this is not adequate, we will return and change the hydromorphone 20 ug /ml to sufentanil 1 ug/ml. Ms. Corbin takes 1 hydrocodone/acetaminophen daily at home. These [...] Gallbladder CA My treatment plan is: Ms. Corbin rates her pain relief as good. My personal assessment is concordant with this evaluation Continue neuraxial infusion, titrate infusion as needed Ms. Corbin's pain is much better controlled than yesterday. [...] with another healthcare provider primary service. JOSE HOOKS MD BILLING INFORMATION [facility] DEPARTMENT: [phone] Place of Service:- Inpatient Date of Service: 04/30/2012 CSN: [id number] Suggested Modifier: GC - Resident Involved Suggested CPT: 86487 - Daily mgmt epidural/subarachnoid drug administration Prolonged service: n/a Ms. Corbin was evaluated with Sasha Rain MD I saw and evaluated patient Ms. Maria Elena Corbin with Fellow Jose Hooks MD. I reviewed all details of Ms. Maria Elena Corbin s epidural block management. I have reviewed the fell ow s note and I agree with the plan of care as documented. I do not have additional comme nts. We did discuss our findings and recommendations with the primary care team. SASHA RAIN MD Sasha Antony MD - 04/29/2012 1:25 PM PDTCalled back to check on Ms. Corbin. She is reporting pain at a 6 or a 7 but did not want more medication for pain as offered by nursing. We will hold off on changing her epidural solution for now but will check back with her whe n she gets to the floor later today. SASHA RAIN MD [facility] [address]CSI [address] [facility] [address], 4th Floor Mail Code: CH4P [place], [place] [address] Matilde Hooper ma - 04/29/2012 1:03 PM PDT BLUE SURGERY INPATIENT PROGRESS NOTE Hospital Day: 1 Author; DANIELLE MEZA Attending Physician: Cornelia Stanton MD Patient Active Problem List Diagnoses Nasal [...] (or 3 results) Recent Labs Basename 04/29/12 01404/28/12 14304/28/12 0800 WBC 10.5 11.0 6.1 HB 10.9* 12.8 13.9 HCT 32.5* 37.4 40.0 PLT 118* 153 179 NEUTROPERC -- -- -- BANDPCT -- -- -- LYMPHPERC -- -- -- MONOPERC -- -- -- BASOPERC -- -- -- EOSPERC -- -- -- Chemistries: Last 72 Hours (or 3 results): Recent Labs Basename 04/29/12 01404/28/12 14304/27/12 1602 NA 138 140 139 K 4.2 4.2 3.8 CL 106 108 104 BICARB 26 24 26 BUN 13 13 11 CR 0.77 0.69 0.64 GLU 94 116* 76 CA 7.0* 7.4* 8.8 MG 2.5 1.4* -- PO4 3.3 3.2 -- Liver Tests: Last 72 hours (or 3 results) Recent Labs Basename 04/29/12 01404/28/12 14304/27/12 1602 AST 135* 145* 27 ALT 111* 114* 42 TBILI 1.0 1.0 0.6 AP 58 82 129* ALB 2.2* 3.0* 3.7 TP 4.4* 5.4* 6.7 Assessment and Plan: S/p liver segmentectomy and en bloc LN dissection Plan Neuro Post op pain Epidural - by APS - if not working though, possible transition to THERAPY ASSISTANT [facility] Hypotension Fluid bolus as needed to [...] no need for intervention Dispo TRANSFER TO [facility] ONLY Sasha Antony MD - 04/29/2012 7:43 [...] Gallbladder CA My treatment plan is: Ms. Corbin rates her pain relief as fair. My personal assessment is concordant with this evaluation. We have given her a 5 ml bolus while in the room. If this is not adequate, we will return and change the hydromorphone 20 ug/ml to sufentanil 1 ug/ml. Ms. Corbin takes 1 hydrocodone/acetaminophen daily at home. We [...] in my medical decision making: N/a JOSE HOOKS MD BILLING INFORMATION [facility] DEPARTMENT: [phone] Place of Service:- Inpatient Date of Service: 04/29/2012 CSN: [id number] Suggested Modifier: GC - Resident Involved Suggested CPT: 27160 - Daily mgmt epidural/subarachnoid drug administration Prolonged service: n/a Ms. Corbin was evaluated with Sasha Rain MD I saw and evaluated patient Ms. Maria Elena Corbin with Fellow Jose Hooks MD. I reviewed all details of Ms. Maria Elena Corbin s epidural block management. I have reviewed the fell ow s note and I agree with the plan of care as documented. I do not have additional comme nts. We did discuss our findings and recommendations with the primary care team. SASHA RAIN MD Rukhsana Holm MD - 04/29/2012 6:49 AM PDTI saw and evaluated the patient. I agree with the findings an d the plan of care as documented in the resident s note. RUKHSANA OSULLIVAN MD [facility] - 04/14 6:49 AM PDT Trauma / Surgical Critical Care Service - Progress Note Name: MARIA ELENA CORBIN Date: 04/29/2012 Time: 6:49 AM Author: ALFREDO MCCRACKEN HPI: 51 y.o. y/o female admitted on [...] Extremities: WWP, minimal edema Assessment: Maria Elena Corbin is a 51 y.o. female with adenocarcinoma [...] with Dr. Osullivan on SICU rounds. Alfredo Mccracken MD Department of Obstetrics & Gynecology, PGY1 [facility] Pager [phone] documented in thi s encounter H&P Notes Other, Faculty - 05/10/2012 11:07 AM PDTElectronically signed by Faculty Other at 3 11:07 AM PDTdocumented in this encounter Procedure Notes Other, Faculty - 06/12/2012 8:20 AM PDTAssociated Order(s): RADIOLOGY ther, Faculty - 05/10/2012 10:50 AM PDTAssociat ed Order(s): PROCEDURE NOTE Ruba Muhammad MD - 04/28/2012 10:30 PM PDTAssociated Order(s): OPERATION RECORD Date: 04/28/2012 Attending Surgeon: Cornelia Stanton M.D. Brusher Tender(s): Ruba Lam MD Preoperative Diagnosis(es): Gallbladder cancer. Postoperative Diagnosis(es): Gallbladder cancer. Procedures Performed: Diagnostic laparoscopy with biopsies, intraoperative ultrasound, partial segment 4B and 5 liver resection (gallbladder fossa with en bloc portal lymphadenectomy). Anesthesia: General endotracheal anesthesia with epidural. Estimated Blood Loss: 350 cc. Fluids: Crystalloid fluid received 2 liters. Urine Output: 300 cc. Specimens: 1. Cystic duct margin. 2. Gallbladder fossa. All frozen margins negative for malignancy. 3. Segment 5 adjacent to portal vein margin negative on frozen. 4. Peritoneal lesions x2, no malignancy on frozen section. 5. Liver lesion biopsy, no malignancy on frozen. Complications: None apparent. Drains: None except the López in place. Disposition: Extubated to the PACU. Indications: Ms. Corbin is a 51-year-old woman with an incidental finding of T2 gallbladder adenocarcinoma at her recent laparoscopic cholecystectomy for acute cholecystitis. Her pathology was reviewed at [facility]. She underwent a CT scan, which showed no evidence of residual or metastatic disease following her cholecystectomy. She is indicated for resection of her gallbladder fossa and testing of her cystic duct margin. Findings: At diagnostic laparoscopy, a lesion in segment 7 of the liver was identified, and this was Bovied circumferentially and then removed with a biopsy forceps and sent for frozen section. Frozen section was negative for malignancy. Two peritoneal wall lesions were identified, one at the costal margin, one superior to this overlying segment 7. These were both biopsied and frozen section was benign on them as well. After we returned to the frozen section information, we proceeded with an open operation. Intraoperative ultrasound of the liver did not show any infiltrating mass at the gallbladder fossa and was basically normal. There was no visible abnormality of the gallbladder. The cystic margin was identified and sent for frozen section and was negative for malignancy, thus hepaticojejunostomy was not indicated. The resection went smoothly and some margins, that were frozen, were all negative. The patient tolerated the procedure well. Procedure: Ms. Cerna was properly identified in the preoperative holding area. All of her questions were answered, and she was found ready to go to the operating room. The patient was brought to the operating room and placed on the operating table in the supine position. Anesthesia was induced without difficulty and lines were placed. The abdomen was then prepped and draped in the usual sterile fashion. A surgical pause was held in accordance with standard protocol before proceeding with the operation. The patient's supraumbilical incision was opened in the center and a suture removed, which opened the small transverse incision in this site. A Veress needle was inserted through the fascia and the pneumoperitoneum established without difficulty. A 10 mm port was then placed in the supraumbilical position. The abdomen was examined completely, and the lesion was found in segment 7 of the liver and two peritoneal lesions on the abdominal wall superior to this. The lateral port sites and superior port sites were all examined and did not appear to have any lesions of concern. Electrocautery was used to circumferentially score the area around the liver lesion and then a biopsy forceps was used to remove this. Hemostasis was accomplished with electrocautery. Biopsy forceps were used to remove the 2 abdominal wall lesions and electrocautery was used to establish hemostasis. Once the frozen sections returned as benign, we then proceeded with a chevron incision after releasing the pneumoperitoneum. The ports were removed, and a chevron incision was made using electrocautery and sharp dissection to enter the abdomen. An Omni retractor was used throughout the operation. We first turned our attention to the gallbladder fossa. There were omental attachments to the gallbladder fossa and a Harmonic scalp was used to leave these in place and divide the attachments. The liver was then mobilized on the left side all the way around and then coming up the right side to completely mobilize the liver posteriorly. The dissection was carried down to the vena cava dividing the hepatic cava ligament. Suture ligature and clips were used to control small crossing vessels. The inferior vena cava was identified and a lymphadenectomy began here rolling the lymph nodes up superiorly toward the distal portal vein. We then dissected off the anterior aspect of the hilar plate from the estevan hepatis. We placed a circumferential umbilical tapes with a Rumel in case we needed to perform a Vancourt maneuver. We then finished the dissection identifying the common bile duct on the right and left branches and identified the cystic duct. A clip was clearly in place. We identified the tissue below this, divided the cystic duct, and sent a piece of margin, which was ultimately negative on frozen section. We then continued our dissection superiorly bringing up the portal lymph nodes along the inferior and lateral aspects of the portal vein. Next, we turned our attention to the liver and scored a wide area approximately 2 cm from the gallbladder fossa circumferentially. Using electrocautery, clips, and the Harmonic scalpel, we divided the liver coming down from a top-down fashion circumferentially clipping any bridging vessels or ducts. This dissection was carried down and then brought out just medial to the cleft of segment 6. The lymphadenectomy was then carried down along the portal vein from a lateral to medial meeting our previous dissection ensuring we had a maximal number of lymph nodes in this area. This lymphadenectomy extended from the duodenum all the way up to the liver. The specimen was marked and sent to Pathology. Margins were frozen and all negative. Hemostasis was accomplished on the liver with electrocautery and a small piece of Surgicel. The area was then irrigated. Once we knew that all of our margins were negative, we turned the abdominal contents to their normal position. The fascia where the 10 mm port was closed such that there was no defect. A double-layer closure of the chevron incision was performed. The subcutaneous tissue was washed out and loose rosie were used to reapproximate the skin. At the completion of the case, all needle, sponge, and instrument counts were correct. Dr. Cornelia Stanton was scrubbed and actively involved in the critical portions of the procedure. At the end of the case, the patient was extubated and brought to the PACU in stable condition. Ruba Lam MD I was present for the critical portions of this procedure and final inspection for RSI wa s completed. Cornelia Stanton M.D. [facility] ([facility]) Professor and Vice-Director Educational [employer] of Surgery [employer] Research Pancreatic/ HepatoBiliary and Foregut Working Groups Mail Code [id number] [place], [place]. [address] email: [email or web address] Cornelia Stanton M.D. Professor and Vice-Director [employer] of Surgery [employer] Pancreat[employer] Research [facility] ([facility]) Division of Gastrointestinal and General Surgery / HS [id number] / [id number] / [id number] / Cornelia Lott MD - 04/28/2012 2:25 PM PDTAssociated Order(s): PROCEDURE NOTEINPATIENT BRIEF OPER ATIVE NOTE Procedure Date: 04/28/2012 2:26 PM Author: RUBA BERTRAND MD Attending Physician: Romy Assistants: Lucila Garcia, MS3 Prior to the beginning of the procedure, the team paused to verify the patient s identity , the procedure to be performed (in accordance with the consent,) and the correct side/site. The patient was positioned appropriately. All relevant images and results were properly lab eled and displayed. We addressed antibiotic prophylaxis and fluids for irrigation as applica ble to this patient. Any safety precautions were addressed. Preoperative Diagnosis: Gallbladder CA Postoperative Diagnosis: same Procedure Performed: diagnostic lsp with biopsies, intra-opertive ultrasound, partial 4b & 5 liver resection (gallbladder fossa) with en bloc portal lymphadenectomy Estimated Blood Loss: 350 Fluids: 2L crystalloid UOP: 300ml Specimens:cystic duct margin, Gallbladder fossa (all frozen margins negative for malignanc y); segment 5 adjacent to portal vein; peritoneal lesions x2 (non-malig), liver lesion biops y (non-malig) Complications: none apparent Drains: none (lópez) Disposition: extubated to pacu Findings: three small lesions (2 peritoneal and 1 liver surface segment 7) biopsied on diag nostic lsp and benign; no infiltrating tumor on ultrasound. liver resection with gallbadder fossa with negative margins. RUBA BERTRAND MD County Engineer, R5 I was present for the critical portions of this procedure and final inspection for RSI wa s completed. Cornelia Stanton M.D. [facility] ([facility]) Professor and Vice-Director Educational Radio of Surgery The Shahriar Nava [facility] for Pancreatic Disease Research Pancreatic/ HepatoBiliary and Foregut Working Groups Mail Code [id number] [facility] [place], [place]. [address] email: [email or web address] documented in this en counter Consult Notes Crystal Peerz PA-C - 04/28/2012 9:45 PM PDTFormatting of this note might be different f rom the original. SURGICAL ICU CONSULT Attending: Cornelia Stanton MD Date: 04/28/2012 CC: s/p liver wedge resection HPI: Maria Elena Corbin is a 51 y.o. 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 She presented with at the end of February with fatigue, nausea and pruritis. An US at an OSH showed gallstones, so she underwe nt a laparoscopic cholecystectiomy where an intramural mass was discovered. 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 She also re ports a 10 lb wt loss. The patient also has a history of osteoarthritis of the lumbar spine for which she has rece ived two steroid injections over the past year with good pain relief. She reports no other m edical problems and and takes a multivitamin and hormone replacement at home. Today, Maria Elena Corbin underwent diagnostic lsp with biopsies, intra-opertive ultrasound, partial 4b & 5 liver resection (gallbladder fossa) with en bloc portal lymphadenectomy. Intraop findings included three small lesions (2 peritoneal and 1 liver surface segment 7) biopsied on diagnostic lsp and benign; no infiltrating tumor on ultrasound. liver resection with gallbadder fossa with negative margins. EBL 350 ml, received 2000 ml crystalloid, 0 u PRBC's, 300 ml UOP. PAST MEDICAL HISTORY: Past Medical History Diagnosis Date Chronic back pain greater than 3 months duration PAST SURGICAL HISTORY: Past Surgical History Procedure Date Tubal ligation 2002 section 1998 Endoscopic sinus surgery 2008 HOME MEDICATIONS: Prior to Admission Medications Medication HYDROcodone-acetaminophen 5-325 mg Oral tablet Take 1 Tab by mouth as needed. Not to exceed 10 tablets per any 24 hour period. (Not to exc eed 3250 mg of acetaminophen from all products per 24 hour period.) ALLERGIES: No Known Allergies SOCIAL HISTORY: History Social History Marital Status: [...] History Narrative Pt has SO. Lives in [facility]. 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 Likes to camp, entertain. FAMILY HISTORY: Family History Problem Relation Diabetes Father Coronary Artery Disease Father REVIEW OF SYSTEMS: ROS as per HPI, otherwise negative. PHYSICAL EXAM: Vital signs: Ht 162.6 cm (5' 4")( < 3 %ile), Wt 84 kg (185 lbs 3.0 oz)( < 3 %ile), BP 99/54 , Pulse 114, Temperature 37.9 C (100.2 F), RR 13, SpO2 98%, BMI 31.79 kg/(m^2). General: Alert and oriented, NAD Chest: CTA bilaterally CV: RRR, no m/r/g, distal pulses 2+ Gastrointestinal: soft, nondistended, appropriately ttp, dressing clean dry and intact, dec reased BS. Extremities: pulses 2+, cap refill 2 seconds, WWP Neuro: PERRL, A&O x 3 Lines: Right IJ, epidural, lópez, right rad art LABS: Chemistries Recent Labs Basename 04/28/12 1434 04/27/12 1602 NA 140 139 K 4.2 3.8 CL 108 104 BICARB 24 26 BUN 13 11 CR 0.69 0.64 GLU 116* 76 CA 7.4* 8.8 MG 1.4* -- PO4 3.2 -- AST 145* 27 ALT 114* 42 AP 82 129* TBILI 1.0 0.6 ALB 3.0* 3.7 No results found for this basename: ph, pco2, po2, hco3, O2sat, FIO2 No results found for this basename: urinecolor, urineappearance, urinele, urinenitrite, uri neurobili, urineprotein, urineph, urineblood, urinespecgrav, urineketones, urinebili, urineg lucose No results found for this basename: urineampphos, urinebacteri, urinecaox, urinecast, urine clue, urinegrancas, urinehyaline, urinemucous, urineepith, urineredcell, urinesqepi, urinepo 4, urinewbc, urineyeast CBC with diff Recent Labs Basename 04/28/12 1434 04/28/12 0800 WBC 11.0 6.1 HB 12.8 13.9 HCT 37.4 40.0 PLT 153 179 NEUTROPERC -- -- BANDPCT -- -- LYMPHPERC -- -- MONOPERC -- -- BASOPERC -- -- EOSPERC -- -- Coag No components found with this basename: inr, ptt, pt CBG's Recent Labs Basename 04/28/12 1434 04/27/12 1602 GLU 116* 76 Cultures none IMAGING: CXR: Right internal jugular central line placed with tip in the lower SVC. No pneumothorax or effusion. Clear lungs. Normal cardiac and mediastinal contours. ASSESSMENT AND PLAN: Maria Elena Corbin is a 51 y.o. female with adenocarcinoma of the gallbl adder s/p biopsy, lymphadenectomy, and 4b & 5 liver resection. 1) s/p liver resection: Watch for signs of bleeding and hemodynamic instability. Follow up CBC and chemistry in the AM. CBC and INR stable post op. Follow UOP closely, bolus as needed . NPO for now. 2) Post op pain: Epidural in place. Titrate epidural as needed for pain control. Close chris toring of BP. Wean epidural if needed for hypotension. IV tylenol prn for pain. 3) nausea: Nubain and zofran as needed for nausea. Ice chips only if nauseous. 4) hypomagnesemia: replete now. Follow up lytes in the AM F: NPO A: epidural S: none T: SCD's, lovenox starting tomorrow H: HOB > 30 U: pepcid G: q6h glucose, SSI if needed. I spent 30 min providing critical care and counseling exclusive of time documented by the a ttending physician. CRYSTAL PEREZ PA-C [address] [place] [address] documented in thi s encounter Miscellaneous Notes Scan - Other, Faculty - 05/11/2012 11:27 AM PDTElectronically signed by Faculty Other at 11:27 AM PDTScan - Other, Faculty - 05/10/2012 11:07 AM PDT can - Other, Faculty - 05/10/2012 10:50 AM PDTElec tronically signed by Faculty Other at 05/10/2012 10:50 AM PDTScjuaquin - Other, Faculty - 013 10:50 AM PDT can Lissa alvarado Faculty - 05/10/2012 10:50 AM PDT 10: 50 AM PDTScan - Other, Faculty - 05/10/2012 10:50 AM PDT can - Other, Faculty - 05/10/2012 10:50 AM PDTElectronically s igned by Faculty Other at 05/10/2012 10:50 AM PDTEvaluation - Lala Hernandez RN - 05/05/19 13 10:34 AM PDTNursing Discharge Note Discharge Date: 05/04/2012 Additional Discharge Information: Reviewed discharge instructions, wound care and medicatio ns. Pt discharged home, to [facility], with S/O. Discharge Nurse: LALA HERNANDEZ andoff - Tong Blackburn RN - 05/04/2012 5:41 AM PDTPrimary Focus of Stay Dx: Gall Bladder Ca History: gallbladder adenocarcinoma found incidentally following a cholecystectomy about on e month ago. She presented with at the end of February with fatigue, nausea and pruritis. An US at an OSH showed gallstones, so she underwent a laparoscopic cholecystectomy where an int ramural mass was discovered. Pathology demonstarted transmural T2 poorly differentiated gissel ocarcinoma with neuroendocrine features extending into the perimuscular tissue but not beyon d the serosa; margins were clean. She also reports a 10 lb wt loss. Pertinent Physical Findings Procedure: 04/28 Liver wedge resection IV Access: right Forearm PIV IVF: SL VS/Oxygen: Diet: Regular diet. Having BMs (x 2 05/03, one loose) Orders to follow up on: Discharge 05/04 Last pain assessment/reassessment: see epic Pain Medication: Scheduled tylenol, PO oxycodone, gabapentin (new 05/03) and prn ibuprofen Psych/Social: Supportive family at bedside. Last night Dr Stanton gave pt news of cancer t o lymph nodes, pt and family very tearful. Safety Rounds: Fall Risk: mild fall risk Activity: stand by assist walked in halls 05/03 Toileting: voiding in hat Skin: intact Anticipated or pending procedures Possible DC Note: plan for dc 05/04 in am lan of Care - Jhon Blackburn RN - 05/04/2012 2:09 AM PDTProblem: General Plan of Care (Adult) Goal: Individualization/Patient-Specific Goal Goals: 1. Patient will have pain </= to 5 /10 on pain scale. 2. Patient will ambulate in nguyen TID 3. Patient will have no injuries related to falls this shift. 4. Patient will state plan for discharge to home and state readiness of tentative discharge date 05/04 Interventions: 1. Assess and medicate for pain Q3 hours and prn. Lidocaine patch. Reposition for comfort. 2. Encourage patient to ambulate with SBA in nguyen TID. 3. Instruct and encourage use of call light for needs. Environmental arrangement for items with reach. Call light within reach. Hourly rounds. 4.Reinforce discharge teaching, medication management and plan for follow up. Collaborate w [facility] surgical team on answering all questions. Provide reassurance to patient/family. valuation - Castillo Bosch RN - 05/03/2012 6:03 PM PDTProblem: General Plan of Care (Adult) Goal: Individualization/Patient-Specific Goal Goals: 1. Patient will have pain </= to 5 /10 on pain scale. 2. Patient will ambulate in nguyen TID 3. Patient will have no injuries related to falls this shift. 4. Patient will state plan for discharge to home and state readiness of tentative discharge date 05/04 Interventions: 1. Assess and medicate for pain Q3 hours and prn. Lidocaine patch. Reposition for comfort. 2. Encourage patient to ambulate with SBA in nguyen TID. 3. Instruct and encourage use of call light for needs. Environmental arrangement for items with reach. Call light within reach. Hourly rounds. 4.Reinforce discharge teaching, medication management and plan for follow up. Collaborate w [facility] surgical team on answering all questions. Provide reassurance to patient/family. Interventions that worked/didn't work:pt's pain improved to 5/10 after gabapentin and ibupr ofen. States understanding and readiness for discharge 05/04. My recommendations forward:continue to monitor pain closely and offer ibuprofen prn Patient Stability:Moderately UnstableElectronically signed by Rohini Bosch RN at 3 6:05 PM PDTHandoff - Rohini Bosch RN - 05/03/2012 6:01 PM PDTNursing Handoff Report Primary Focus of Stay Dx: Gall Bladder Ca History: gallbladder adenocarcinoma found incidentally following a cholecystectomy about on e month ago. She presented with at the end of February with fatigue, nausea and pruritis. An US at an OSH showed gallstones, so she underwent a laparoscopic cholecystectomy where an int ramural mass was discovered. Pathology demonstarted transmural T2 poorly differentiated gissel ocarcinoma with neuroendocrine features extending into the perimuscular tissue but not beyon d the serosa; margins were clean. She also reports a 10 lb wt loss. Pertinent Physical Findings Procedure: 04/28 Liver wedge resection IV Access: right Forearm PIV IVF: SL VS/Oxygen: Diet: Regular diet. Having BMs (x 2 05/03, one loose) Orders to follow up on: Discharge 05/04 Last pain assessment/reassessment: see epic Pain Medication: Scheduled tylenol, PO oxycodone, gabapentin (new 05/03) and prn ibuprofen Psych/Social: Supportive family at bedside Safety Rounds: Fall Risk: mild fall risk Activity: stand by assist walked in halls 05/03 Toileting: voiding in hat Skin: intact Anticipated or pending procedures Possible DC Note: plan for dc 05/04 in am lan of Care - Rohini Bosch RN - 05/03/2012 11:18 AM PDTProblem: General Plan of Care (Adult) Goal: Individualization/Patient-Specific Goal Goals: 1. Patient will have pain </= to 5 /10 on pain scale. 2. Patient will ambulate in nguyen TID 3. Patient will have no injuries related to falls this shift. 4. Patient will state plan for discharge to home and state readiness of tentative discharge date 05/04 Interventions: 1. Assess and medicate for pain Q3 hours and prn. Lidocaine patch. Reposition for comfort. 2. Encourage patient to ambulate with SBA in nguyen TID. 3. Instruct and encourage use of call light for needs. Environmental arrangement for items with reach. Call light within reach. Hourly rounds. 4.Reinforce discharge teaching, medication management and plan for follow up. Collaborate w [facility] surgical team on answering all questions. Provide reassurance to patient/family. AMEvaluation Antoni Lozano RN - 05/03/2012 6:01 AM PDTProblem: General Plan of Care (Adult) Goal: Plan of Care Review Problem: General Plan of Care (Adult) Intervention: NPEOC Acute Goals: 1. Pt's pain will be <3/10 or acceptable level for the patient 2. Pt will remain free of s/sx of infection 3. Pt will be able to get adequate rest Interventions: 1. Assess for pain and discomfort Q3-4 and PRN. Offer alternative methods for pain reductio n (position changes, warm/cold pack, distractions). 2. Monitor I&Os, VS, respiratory status. Notify MD of any significant changes. 3. Provide a safe, noise free environment to promote rest. Cluster care and minimize distur bances. Interventions that worked/didn't work:Pt reports consistent pain levels. Will increase dosa ge for Oxycodone by 5mg next dose. VSS, good UOP. Pt calls appropriately. at bedside and assists to ambulate in room. My recommendations forward:Monitor pain levels. Patient Stability:Moderately Stable andoff - Cris Adame RN - 05/03/2012 2:45 AM PDTNursing Handoff Report Primary Focus of Stay Dx: Gall Bladder Ca History: gallbladder adenocarcinoma found incidentally following a cholecystectomy about on e month ago. She presented with at the end of February with fatigue, nausea and pruritis. An US at an OSH showed gallstones, so she underwent a laparoscopic cholecystectiomy where an in tramural mass was discovered. 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 She also reports a 10 lb wt loss. Pt got very emotional and tearful about being told she is going to discharge 05/03. Patient felt like the process explained to her by Dr Stanton wasn't going to happen and she was senait y distraught about not having a f/u or a plan regarding continued care. Pertinent Physical Findings Procedure: 04/28 Liver wedge resection IV Access: right Forearm PIV IVF: SL Drains/Tubes: VS/Oxygen: O2 @ NOC PRN Diet: Regular diet. Passing flatus Med BM 05/02. Orders to follow up on: Discharge 05/03 Last pain assessment/reassessment: 15mg PO Oxycodone Q 3hrs Pain Medication: Scheduled tylenol, PO oxycodone PRN Dilaudid Psych/Social: Supportive family at bedside Safety Rounds: Fall Risk: mild fall risk Activity: stand by assist walked in halls 05/02 Toileting: voiding in hat Skin: intact Anticipated or pending procedures Possible DC Note: 05/03 pending Patient's needs met ie: she wants to know the pathology, has a f/u with an oncologist and her doesn't have to drive at night, can't see well in the dark. Please have city planner see patient first thing in AM lan of Care - Tevin Adame RN - 05/03/2012 2:34 AM PDTProblem: General Plan of Care (Adult) Goal: Plan of Care Review Problem: General Plan of Care (Adult) Intervention: NPEOC Acute Goals: 1. Pt's pain will be <3/10 or acceptable level for the patient 2. Pt will remain free of s/sx of infection 3. Pt will be able to get adequate rest Interventions: 1. Assess for pain and discomfort Q3-4 and PRN. Offer alternative methods for pain reductio n (position changes, warm/cold pack, distractions). 2. Monitor I&Os, VS, respiratory status. Notify MD of any significant changes. 3. Provide a safe, noise free environment to promote rest. Cluster care and minimize distur bances. valuation - Don Yadav RN - 05/02/2012 5:50 PM PDTProblem: General Plan of Care (Adult) Goal: Individualization/Patient-Specific Goal Goals: 1. Patient will rate pain at or below acceptable level as stated by the patient. 2. Patient will have no injuries related to falls this shift. 3. Patient will increase activity level this shift Interventions: 1. Assess and medicate for pain Q4 hours and prn. Reposition for comfort. 2. Instruct and encourage use of call light for needs. Bed Alarm as needed. Environmental a rrangement for items with reach. Call light within reach. Hourly rounds. Identify fall risk with Andrew Scale. 3. Encourage pt to be up out of bed x3 today and ambulate in the halls. Interventions that worked/didn't work:pt ambulated early but refused evening walks My recommendations forward:continue to discuss importance of moving Patient Stability:Moderately Unstable andoff - Linden Yadav RN - 05/02/2012 5:35 PM PDTNursing Handoff Report Primary Focus of Stay Dx: Gall Bladder Ca History: gallbladder adenocarcinoma found incidentally following a cholecystectomy about on e month ago. She presented with at the end of February with fatigue, nausea and pruritis. An US at an OSH showed gallstones, so she underwent a laparoscopic cholecystectiomy where an in tramural mass was discovered. 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 She also reports a 10 lb wt loss. Pt got very emotional and tearful about being told she is going to discharge tomorrow. Elsy nguyen felt like the process explained to her by the doctors wasn't going to happen and she wa s very distraught about not having a f/u or a plan regarding continued care. Pertinent Physical Findings Procedure: 04/28 Liver wedge resection IV Access: right Forearm PIV IVF: SL Drains/Tubes: VS/Oxygen: O2 @ NOC Diet: Fulls likes Ice. Passing flatus Med BM 05/02. Orders to follow up on: Discharge 05/03 Last pain assessment/reassessment: 1715 given 15mg PO Oxycodone Pain Medication: Scheduled tylenol, PO oxycodone PRN Dilaudid Psych/Social: Supportive family at bedside Safety Rounds: Fall Risk: mild fall risk Activity: stand by assist walked in halls 05/02 Toileting: voiding in hat Skin: intact Anticipated or pending procedures Possible DC Note: 05/03 pending Patient's needs met ie: she knows the pathology, has a f/u w ith an oncologist and her doesn't have to drive at night, can't see well in the dark . Please have city planner see patient first thing in AM lan of Birdie Ibarra RN - 05/02/2012 10:30 AM PDTProblem: General Plan of Care (Adult) Goal: Individualization/Patient-Specific Goal Goals: 1. Patient will rate pain at or below acceptable level as stated by the patient. 2. Patient will have no injuries related to falls this shift. 3. Patient will increase activity level this shift Interventions: 1. Assess and medicate for pain Q4 hours and prn. Reposition for comfort. 2. Instruct and encourage use of call light for needs. Bed Alarm as needed. Environmental a rrangement for items with reach. Call light within reach. Hourly rounds. Identify fall risk with Andrew Scale. 3. Encourage pt to be up out of bed x3 today and ambulate in the halls. lan of Oumou Acevedo, PT - 05/02/2012 10:30 AM PDTPhysical Therapy 05/02/2012 10:31 AM Pt seen on 14K This is hospital day 4 Brief Hospital Course: Maria Elena Corbin is a 51 year old female with gallbladder cancer s/p diagnostic laparoscopy with biopsies, intraoperative ultrasound, partial segment 4B and 5 l iver resection on 04/28/12. Relevant Precautions: Abdominal Status Update: no acute events. Subjective: patient encountered leaving room for a walk with . agreeable to P.TTimmy hwang. Pain: reports 7/10 right sided abdominal pain. RN notified and will give pain meds. Objective: Education: review of abdominal prec's, patient shows good understanding. discussed home saf ety modifications, progression of activity after rtn home, reviewed home exercise plan. issu ed handouts on each of these topics. Therapeutic exercises: Patient performed seated marches and long arc quad with good quality . Supine to sit: to right edge of bed via log roll w/ stand by assist, flat bed, using side r ail. Sit to supine from right edge of bed via log roll with stand by assist, flat bed, without s kalro rail. Sit to stand: stand by assist, slowly. Gait: ambulated x 300' with close stand by assist, no upper extremity support, slow pace wi th short and low steps bilaterally. mild limp on right side due to pain on right side. no re st breaks. patient identifies when she needs to rtn to room. At end of treatment pt up in recliner with call celis at side and nursing updated. Assessment: Patient making steady gains following procedure described above. ambulating wit h stand by assist and tolerating functional amounts of activity. very motivated and receptiv e to education. mainly limited by pain. does continue to move slowly and with dec'd balance reactions during mobility from baseline. This patient has good rehabilitation potential to achieve stated goals (see Care Plan for goals) and requires continued rehabilitation services, given the patient's treatment is at a level of complexity or sophistication requiring the skills of a therapist, specifically to improve strength, AROM and balance for improved bed mobility, transfers and gait. See care plan for goals. Discharge Recommendations: home with familial assist as needed. Recommended Nursing Activity: routine ambulation, stand by assist but may progress to indep endent ambulation as patient is comfortable. Lala Mahajan DPT Pager [phone] lan of [facility] - Rukhsana Umaña - 05/02/2012 10:02 AM PDTFormatting of this note might be different from the o patricio. Occupational Therapy Evaluation 05/02/2012 10:02 AM Pt admitted on 04/28/2012, hospital day # 4. Seen on 13K. Brief Hospital Course: Maria Elena Corbin is a 51 year old female with gallbladder cancer s/ p diagnostic laparoscopy with biopsies, intraoperative ultrasound, partial segment 4B and 5 liver resection on 04/28/12. Relevant Precautions: abdominal Past Medical History Diagnosis Date Chronic back pain greater than 3 months duration Past Surgical History Procedure Date Tubal ligation 2002 section 1998 Endoscopic sinus surgery 2008 Living Environment: Pt lives with spouse in [place] in 1 level house, 0 steps to enter, walk-in shower, no seat, standard height toilet. Prior Level of Function: Independent with ADLs/IADLs. Stands for showering and lower body dressing. Functional mobility without assistive device. Patient / Family Goal: home Barriers: none Pain: Does not rate/10 Pain addressed: RN aware Vital signs: No SS of abnormal vitals.. Cognitive Screen Level of alertness: Verbalizes/alert Orientation: x4 Quality of responses: appropriate Command following: Multi-step Memory: STM/LTM intact Judgement / safety awareness: good Attention / Concentration: good Barriers to Learning: none Affect: appropriate Visual Perception: WFL UE Physical Assessment Dominant Hand: R ROM: BUE WFL Strength: BUE WFL Edema: BLE Skin Integrity: intact UE Neurological Function Sensation: BUE intact to light touch Muscle Tone: intact Proprioception: intact Gross Motor: intact Fine Motor: intact Activities of Daily Living: UB Dressing: dons shirt independent UB Grooming: independent LB Dressing: educated on safety/sequencing with lower body dressing and using cross-legged method while sitting, pt donned underwear independently post instruction Toileting: educated pt on multiple methods to perform concluding that using adaptive equip ment most successful, pt planning on getting adaptive equipment Ambulation with ADL: NT Transfers: Sit<>stand with standby assist, toilet transfer with standby assist Treatment provided this date: Pt seen for evaluation, ADL training, and precaution review. Educated on impact of precautions on ADLs/IADLs with emphasis on task/environmental modifi cations. Ended session: Seated in bathroom, call light within reach, RN aware ASSESSMENT: Maria Elena Corbin is a 51 year old female with gallbladder cancer s/p diagnosti c laparoscopy with biopsies, intraoperative ultrasound, partial segment 4B and 5 liver resec tion on 04/28/12. Pt is alert and oriented. Follows commands. BUE strength/ROM/sensation/m otor function WFL. Vision intact. Able to perform ADLs post instruction independently. Fu nctional mobility related to ADLs independent. Good understanding of precautions. Pt has a ssistance at discharge. Pt has no further OT needs. Will sign-off. If condition changes, pl ease reorder OT services. See care plan for goals. Recommendations: Discharge home with assist Activity Recommendations: out of bed three times/day, encourage independence with ADLs PLAN: Discharge acute OT The above plan of care and goals were developed and reviewed with the patient. 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 She presented with at the end of February with fatigue, nausea and pruritis. An US at an OSH showed gallstones, so she underwent a laparoscopic cholecystectiomy where an in tramural mass was discovered. 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 She also reports a 10 lb wt loss. Pertinent Physical Findings Procedure: 04/28 Liver wedge resection IV Access: right Forearm PIV IVF: SL Drains/Tubes: VS/Oxygen: O2 @ NOC Diet: Fulls likes Ice. Passing flatus. Orders to follow up on: Miralax. Advance diet? Last pain assessment/reassessment: 0650 given 15mg PO Oxycodone Pain Medication: Scheduled tylenol, PO oxycodone PRN Dilaudid Psych/Social: Supportive family at bedside Safety Rounds: Fall Risk: mild fall risk Activity: stand by assist walked in halls 05/01 Toileting: voiding in hat Skin: intact Anticipated or pending procedures Possible DC Note: later lan of Care - Tevin Adame RN - 05/01/2012 11:02 PM PDTProblem: General Plan of Care (Adult) Goal: Plan of Care Review Problem: General Plan of Care (Adult) Intervention: NPEOC Acute Goals: 1. Pt's pain will be <3/10 or acceptable level for the patient 2. Pt will remain free of s/sx of infection 3. Pt will be able to get adequate rest Interventions: 1. Assess for pain and discomfort Q3-4 and PRN. Offer alternative methods for pain reductio n (position changes, warm/cold pack, distractions). 2. Monitor I&Os, VS, respiratory status. Notify MD of any significant changes. 3. Maintain a safe, clutter-free environment. Secure tubing, IVs, drains. Place call light and personal items within reach. 4. Assess skin [id number] and PRN. Educate on prevention of skin breakdown. Encourage Q2hour t urns. Elevate heels and other pressure points PRN. 5. Provide a safe, noise free environment to promote rest. Cluster care and minimize distur bances. valuation - Luis A, Nilam overton RN - 05/01/2012 6:36 PM PDTProblem: Perioperative Period (Adult, Obstetrics) Goal: Signs and symptoms of listed potential problems will be absent or manageable (referen gladys (Perioperative Period (Adult, Obstetrics)) CPG) Goals: 1.) Patient will rate pain <3/10 2.) Patient will have normal bowel movements 3.) Patient will maintain O2 stats at or above 92% 4.) Patient will increase activity by sitting up in chair for all meals and ambulating in hallway. 5.) Patient will maintain skin integrity and will be without falls 6.) Manage and prevent further complications of infection during this shift. Interventions: 1.) Assess pain every 3 hours and PRN offer and administer medication as needed 2.) Provide patient with bowel care medications and encourage PO fluids and mobility to pr event constipation 3.) Assess patient for adequate perfusion as evidenced by warm, pink skin, peripheral capi llary refill <3 seconds. Reinforce use of IS/CDB and importance of pulmonary activities. Of humberto oral care and assess oral mucosa frequently. Monitor pain and comfort level. 4.) Assist patient up to the chair, encourage ambulation in hallway and provide assistance as needed. 5.) Encourage patient to mobilize as much as possible, including moving in bed, turn Q 2hr s; prevent patient from lying on tubes. Offer and provide assistance to bathroom Q2-3hours a nd as needed. Bed in low position with brakes locked, side rails x2, room near station, call light in reach, clutter free environment with needed personal items in reach 6.) Assess patient for fever and stable vital signs. Maintain strict hand hygiene and clean environment. Assess and monitor wounds for any malodorous or purulent drainage. 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 She presented with at the end of February with fatigue, nausea and pruritis. An US at an OSH showed gallstones, so she underwent a laparoscopic cholecystectiomy where an in tramural mass was discovered. 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 She also reports a 10 lb wt loss. Pertinent Physical Findings Procedure: 04/28 Liver wedge resection IV Access: right Forearm PIV IVF: SL Drains/Tubes: VS/Oxygen: O2 @ NOC Diet: Fulls likes Ice. Passing flatus. Orders to follow up on: Miralax in am Last pain assessment/reassessment: 1829 given 10mg PO Oxycodone 0.4 Dilaudid Pain Medication: PRN tylenol, PO oxycodone Psych/Social: Supportive family at bedside Safety Rounds: Fall Risk: mild fall risk Activity: stand by assist walked in halls 05/01 Toileting: voiding in hat Skin: intact Anticipated or pending procedures Possible DC Note: later lan of Care - Soheila Gunn RN - 05/01/2012 1:39 PM PDTProblem: Perioperative Period (Adult, Obstetrics) Goal: Signs and symptoms of listed potential problems will be absent or manageable (referen ce (Perioperative Period (Adult, Obstetrics)) CPG) Goals: 1.) Patient will rate pain <3/10 2.) Patient will have normal bowel movements 3.) Patient will maintain O2 stats at or above 92% 4.) Patient will increase activity by sitting up in chair for all meals and ambulating in hallway. 5.) Patient will maintain skin integrity and will be without falls 6.) Manage and prevent further complications of infection during this shift. Interventions: 1.) Assess pain every 3 hours and PRN offer and administer medication as needed 2.) Provide patient with bowel care medications and encourage PO fluids and mobility to pr event constipation 3.) Assess patient for adequate perfusion as evidenced by warm, pink skin, peripheral capi llary refill <3 seconds. Reinforce use of IS/CDB and importance of pulmonary activities. Of humberto oral care and assess oral mucosa frequently. Monitor pain and comfort level. 4.) Assist patient up to the chair, encourage ambulation in hallway and provide assistance as needed. 5.) Encourage patient to mobilize as much as possible, including moving in bed, turn Q 2hr s; prevent patient from lying on tubes. Offer and provide assistance to bathroom Q2-3hours a nd as needed. Bed in low position with brakes locked, side rails x2, room near station, call light in reach, clutter free environment with needed personal items in reach 6.) Assess patient for fever and stable vital signs. Maintain strict hand hygiene and clean environment. Assess and monitor wounds for any malodorous or purulent drainage. lan of Care - Dora Alonso, AUDREY - 05/01/2012 1:17 PM PDTProblem: Nutrition Interventions Intervention: Food and nutrient distribution type or amount Pt adv to FL diet today. -Cont to ADAT to Regular -Encourage PO intake as radha -Will offer oral supplements prn -Cont checking lytes, replete prn -Bowel regimen Following Comments: Nutrition Dx: Pt with potential for inadequate protein-energy intake r/t diagnosis, recent surgery AEB pt currently on FL diet. Maria Elena Corbin is a 51 y.o. Female with gallbladder cancer, now s/p partial liver resecti on and en bloc portal lymphadenectomy on 04/28. Diet: (05/01) FL; PO fluids: 1520mL BM x 0; UOP: (04/30) 3925mL Pert Labs: (05/01) Ca-7.1, AST/ALT-elevated Pert Meds: D5/NaCl/KCl, pepcid, neutra-phos, senna Ht:64"; Wt: 84kg; BMI: 31.6; IBW: 54.5kg; AdjBW: 61.9kg Est Nutrition Needs: 1550-1850kcals (25-30kcals/kgAdjBW); 62-93gm protein (1.0-1.5gm/kgAdjB W) Dora Tse RD, LD #[id number] signed by Dora Tse RD at 013 1:21 PM PDTPlan of Care - Marina Kaminski - 05/01/2012 12:12 PM PDTProblem: Case Management Goals Goal: Discharge Needs Met Case Management Initial Assessment Reason for Admission: Gallbladder CA Admitted From: Home Emergency Contact: Extended Emergency Contact Information Primary Emergency Contact: PONCHO ABARCA Relation: Significant Other Past Medical History: Malignant neoplasm of gallbladder [156.0] (Malignant neoplasm of gall bladder [156.0]), LIVER RESECTION Lives With: child(sonal), dependent;significant other Living Arrangement: house Functional Level Prior to Admission: 0-->independent Transportation Available: family Equipment Currently used at Home/DME Provider: none Home Health/Infusion Agency: N/A Insurance/Funding: @[employer]@, Formerly [facility], [facility], [facility] Services Assessment: 51 yr old female with hx Gallbladder Ca, admitted for 04/28 liver wedge resectio n. Pt now on 13K, epidural off, diet advancing to full liquid, lópez out, bowel fx starting to return. Pt from [place], appears to have supportive family. Case mgt to follow for dc planning including possible Lovinox. Plan for dc Tue, , this week. 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 She presented with at the end of February with fatigue, nausea and pruritis. An US at an OSH showed gallstones, so she underwent a laparoscopic cholecystectiomy where an in tramural mass was discovered. 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 She also reports a 10 lb wt loss. Pertinent Physical Findings Procedure: 04/28 Liver wedge resection IV Access: right Forearm IVF: SL Drains/Tubes: Hydromorphone Epidural 13mL cont. 3mL Q15 mins (stopped at 0900, awaiting INR results for pain service to come pull VS/Oxygen: O2 @ NOC Diet: Fulls likes Ice. Passing flatus. Orders to follow up on: Epidural removal Last pain assessment/reassessment: 1030 given 5mg PO Oxycodone Pain Medication: PRN IV tylenol, PO oxycodone Psych/Social: Supportive significant at bedside Safety Rounds: Fall Risk: mild fall risk Activity: stand by assist walked in halls 05/01 Toileting: López out, voiding in hat Skin: intact Anticipated or pending procedures Possible DC Note: later lan of Arjun - Sabiha Mahajan, PT - 05/01/2012 8:44 AM PDT . Physical Therapy 05/01/2012 8:44 AM Pt seen on 13K This is hospital day 3 Brief Hospital Course: Maria Elena Corbin is a 51 year old female with gallbladder cancer s/p diagnostic laparoscopy with biopsies, intraoperative ultrasound, partial segment 4B and 5 l iver resection on 04/28/12. Relevant Precautions: Abdominal Past Medical History Diagnosis Date Chronic back pain greater than 3 months duration Past Surgical History Procedure Date Tubal ligation 2002 section 1998 Endoscopic sinus surgery 2008 Status Update: no acute events. Subjective: patient ready to get up and move this morning. bedside. Pain: 7/10. premedicated at beginning of treatment. Objective: Education: review of abdominal prec's, patient demonstrates good recall. Therapeutic exercises: instructed in seated therex including marches, ankle pump, long arc quad to perform independently t/o day while in chair. Supine to sit: to right edge of bed via log roll maneuver with contact guard assist and senait bal cues, HOB ~30 deg. Sit to stand: from edge of bed with close stand by assist. Gait: patient ambulated x~450' pushing IV pole, progressed to 1 hand hold assist after firs t 50'. slow shuffling steps with decr'd lateral weight shifts. one standing rest break utili zed to view out window. no signs of overt intolerance for this activity. At end of treatment pt up in recliner with call celis at side and nursing updated. Assessment: Patient demonstrates good progress with transfers and endurance for functional activity following procedure. Moving slowly and slightly limited by pain, but receptive to e ducation and encouragement and motivated. able to ambulate with only hand hold assist today. This patient has good rehabilitation potential to achieve stated goals (see Care Plan for goals) and requires continued rehabilitation services, given the patient's treatment is at a level of complexity or sophistication requiring the skills of a therapist, specifically to improve strength, AROM and balance for improved bed mobility, transfers and gait. See care plan for goals. Discharge Recommendations: home with familial assist prn. Recommended Nursing Activity: ambulate and into chair with assist TID. Lala Mahajan DPT Pager [phone] lan of Arjun - Tevin Adame RN - 05/01/2012 2:55 AM PDTProblem: General Plan of Care (Adult) Goal: Plan of Care Review Problem: General Plan of Care (Adult) Intervention: NPEOC Acute Goals: 1. Pt's pain will be <3/10 or acceptable level for the patient 2. Pt will remain free of s/sx of infection 3. Pt will be able to get adequate rest Interventions: 1. Assess for pain and discomfort Q3-4 and PRN. Offer alternative methods for pain reductio n (position changes, warm/cold pack, distractions). 2. Monitor I&Os, VS, respiratory status. Notify MD of any significant changes. 3. Provide a safe, noise free environment to promote rest. Cluster care and minimize distur bances. 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 She presented with at the end of February with fatigue, nausea and pruritis. An US at an OSH showed gallstones, so she underwent a laparoscopic cholecystectiomy where an in tramural mass was discovered. 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 She also reports a 10 lb wt loss. Pertinent Physical Findings Procedure: 04/28 Liver wedge resection IV Access: right Forearm IVF: [id number]@ 75 Drains/Tubes: Hydromorphone Epidural 13mL cont. 3mL Q15 mins VS/Oxygen: O2 @ NOC Diet: Clear likes Ice. Passing flatus. Orders to follow up on: Last pain assessment/reassessment: See EPIC Pain Medication: Epidural PRN IV tylenol, hydromorphone. Psych/Social: Supportive significant other during daytime Safety Rounds: Fall Risk: mild fall risk Activity: stand by assist walked in halls 04/30 daytime Toileting: López, walker to bathroom Skin: intact Anticipated or pending procedures Possible DC Note: later valuation - Aileen Yadav RN - 04/30/2012 6:22 PM PDTProblem: General Plan of Care (Adult) Goal: Plan of Care Review Goals: 1. Patient will rate pain at or below acceptable level as stated by the patient. 2. Patient will have no injuries related to falls this shift. 3. Patient will increase activity level this shift Interventions: 1. Assess and medicate for pain Q4 hours and prn. Reposition for comfort. 2. Instruct and encourage use of call light for needs. Bed Alarm as needed. Environmental a rrangement for items with reach. Call light within reach. Hourly rounds. Identify fall risk with Andrew Scale. 3. Encourage pt to be up out of bed x3 today and ambulate in the halls. 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 She presented with at the end of February with fatigue, nausea and pruritis. An US at an OSH showed gallstones, so she underwent a laparoscopic cholecystectiomy where an in tramural mass was discovered. 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 She also reports a 10 lb wt loss. Pertinent Physical Findings Procedure: POD 2 Liver wedge resection IV Access: right Forarm IVF: [id number]@ 75 Drains/Tubes: Hydromorphone Epidural 12 cont. 3Q 15 VS/Oxygen: O2 @ NOC Diet: Clear likes Ice Orders to follow up on: Last pain assessment/reassessment: See EPIC Pain Medication: Epidural PRN IV tylenol, hydromorphone. Psych/Social: Supportive significant other at bedside Safety Rounds: Fall Risk: mild fall risk Activity: stand by assist walked in halls today Toileting: López, walker to bathroom Skin: intact Anticipated or pending procedures Possible DC Note: later lan of Linden Ibarra RN - 04/30/2012 9:24 AM PDTProblem: General Plan of Care (Adult) Goal: Plan of Care Review Goals: 1. Patient will rate pain at or below acceptable level as stated by the patient. 2. Patient will have no injuries related to falls this shift. 3. Patient will increase activity level this shift Interventions: 1. Assess and medicate for pain Q4 hours and prn. Reposition for comfort. 2. Instruct and encourage use of call light for needs. Bed Alarm as needed. Environmental a rrangement for items with reach. Call light within reach. Hourly rounds. Identify fall risk with Andrew Scale. 3. Encourage pt to be up out of bed x3 today and ambulate in the halls. lan of Shahla Judd - 04/30/2012 8:24 AM PDTFormatting of this note might be different from the origina l. Physical Therapy Evaluation 04/30/2012 8:24 AM Pt seen on 13K Brief Hospital Course: Maria Elena Corbin is a 51 year old female with gallbladder cancer s/ p diagnostic laparoscopy with biopsies, intraoperative ultrasound, partial segment 4B and 5 liver resection on 04/28/12. Relevant Precautions: Abdominal Past Medical History Diagnosis Date Chronic back pain greater than 3 months duration Past Surgical History Procedure Date Tubal ligation 2002 section 1998 Endoscopic sinus surgery 2008 Living Environment: Pt lives with her spouse in a single level home with no stairs to enter . No durable medical equipment. Prior Level of Function: Independent in mobility without assistive device; works at a [employer] Patient / Family Goal: Get well, return to home. Communication: Intact, Maltese Barriers: None Pain: 7/10 at rest; Pt has a THERAPY ASSISTANT and utilized 2x during evaluation. Vital signs: Stable on room air with activity (94%, HR 110 after getting to chair). Cognitive Screen Level of alertness: Alert Orientation: Oriented x 4 Quality of responses: Appropriate Command followin% single step Judgment / safety awareness: Good Physical Assessment ROM: bilateral lower extremities within functional limits Strength: bilateral lower extremities within functional limits Edema: None visualized Skin Integrity: Intact Neurological Function Sensation: Intact to light touch all extremities Muscle Tone: No abnormal tone noted Proprioception: NT Gross Motor: Intact Fine Motor: Intact Balance: Static/dynamic sitting independent Static standing with stand by assist Dynamic standing stand by assist, pt clutching pillow to abdomen throughout, no assistive d evice used Mobility & Transfers: Supine > sit via logroll with minimal assist, cueing on technique Sit <> stand with contact guard assist Gait: Pt ambulated ~15 ft around room with close stand by assist; no assistive device used. Pt with slow pace, minimal step length, shuffling gait pattern. Pt clutching pillow through out, mildly unsteady with forward trunk lean. Treatment provided this date: Evaluation, education on abdominal precautions (handout provi ded), initiation of activity plan. Ended session: Pt sitting up in bedside chair with needs met, call sandeep heller, nursing curt re. ASSESSMENT: Pt presenting mildly below her baseline level of functional mobility in terms o f tolerance to activity, bed mobility, transfers, gait quality. Mobility primarily impacted by increased abdominal discomfort; pt requiring minimal assist for bed mobility and close st and by assist for out of bed mobility. Pt would benefit from skilled PT to address above imp airments and instruct in strengthening and endurance program as well as provide balance and gait training to increase current functional level and decrease fall risk. Recommendations: Activity plan: Up to chair and ambulating with assist TID. Discharge recommendations: Home with prn assist of spouse. Likely no durable medical equipm ent needs. PLAN: Therapeutic activity, therapeutic exercise, transfer training, gait training, dynami c standing balance tasks, precaution review, caregiver education Frequency: 5x/week Duration: 1 week The above plan of care and goals were developed and reviewed with the patient. SHAHLA SOLIMAN, PT valuation - Corrie Maya RN - 04/30/2012 5:37 AM PDTProblem: General Plan of Care (Adult) Goal: Individualization/Patient-Specific Goal Goals: 1. Patient will rate pain at or below acceptable level as stated by the patient. 2. Patient will have no injuries related to falls this shift. Interventions: 1. Assess and medicate for pain Q4 hours and prn. Reposition for comfort. 2. Instruct and encourage use of call light for needs. Bed Alarm as needed. Environmental a rrangement for items with reach. Call light within reach. Hourly rounds. Identify fall risk with Andrew Scale. 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 She presented with at the end of February with fatigue, nausea and pruritis. An US at an OSH showed gallstones, so she underwent a laparoscopic cholecystectiomy where an in tramural mass was discovered. 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 She also reports a 10 lb wt loss. Pertinent Physical Findings Procedure: POD 2 Liver wedge resection IV Access: Left and right AC IVF: LR @ 150 Drains/Tubes: Hydromorphone Epidural 12 cont. 3Q 15 VS/Oxygen: Tachy/ O2 @ NOC Diet: Clear likes Ice Orders to follow up on: Last pain assessment/reassessment: See EPIC Pain Medication: Epidural PRN IV tylenol, hydromorphone. Psych/Social: Supportive significant other at bedside Safety Rounds: Fall Risk: mild fall risk Activity: stand by assist Toileting: López, walker to bathroom Skin: intact Anticipated or pending procedures Possible DC Note: later lan of Care - Sangita Maya RN - 04/29/2012 11:49 PM PDTProblem: General Plan of Care (Adult) Goal: Individualization/Patient-Specific Goal Goals: 1. Patient will rate pain at or below acceptable level as stated by the patient. 2. Patient will have no injuries related to falls this shift. Interventions: 1. Assess and medicate for pain Q4 hours and prn. Reposition for comfort. 2. Instruct and encourage use of call light for needs. Bed Alarm as needed. Environmental a rrangement for items with reach. Call light within reach. Hourly rounds. Identify fall risk with Andrew Scale. 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 She presented with at the end of February with fatigue, nausea and pruritis. An US at an OSH showed gallstones, so she underwent a laparoscopic cholecystectiomy where an in tramural mass was discovered. 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 She also reports a 10 lb wt loss. Pertinent Physical Findings Procedure: POD 1 Liver wedge resection IV Access: Left and right AC IVF: LR @ 150 Drains/Tubes: Hydromorphone Epidural 10 cont. 3Q 15 VS/Oxygen: Tachy/ O2 @ NOC Diet: Clear likes Ice Orders to follow up on: Low urine output please follow closely Last pain assessment/reassessment: 1800 continually c/o 07/24 pain Epidural doesn't seem to make any changes in pain scale Pain Medication: Epidural PRN IV tylenol, hydromorphone. 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 She presented with at the end of February with fatigue, nausea and pruritis. An US at an OSH showed gallstones, so she underwent a laparoscopic cholecyste ctiomy where an intramural mass was discovered. 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 She also reports a 10 lb wt loss. Past Medical History Diagnosis Date Chronic back pain greater than 3 months duration Past Surgical History Procedure Date Tubal ligation 2002 section 1998 Endoscopic sinus surgery 2008 Major Plan of Care: pain management, out of bed, ambulate, advance diet NEURO A&O: oriented x 4 (04/29/121199) Cough: none (04/29/121199) Gag: present (04/29/121199) R Pupil Size: 3 mm (04/29/121199) Reaction: brisk;equal (04/29/121199) L Pupil Size: 3 mm (04/29/121199) Reaction: brisk;equal (04/29/121199) R Motor: purposeful motor response (04/29/121199) L Motor: purposeful motor response (04/29/121199) CARDIAC (12 hr lookback) HR: Pulse Min: 98 Max: 131 Sys: Systolic (12hrs), Av mmHg, Min:98 mmHg, Max:121 mmHg Elen: Diastolic (12hrs), Av mmHg, Min:44 mmHg, Max:71 mmHg Mean: BP Mean Min: 56 mmHg Max: 82 mmHg Intake/Output Summary (Last 24 hours) at 04/29/12 1520 Last data filed at 04/29/12 1500 Gross per 24 hour Intake 6644.03 ml Output 772 ml Net 5872.03 ml Temp: Temp Min: 36.9 C (98.4 F) Max: 37.3 C (99.1 F) RESPIRATORY RR: Resp Min: 11 Max: 24 SaO2: SpO2 Min: 85 % Max: 100 % O2 flow: 2 LPM (04/29/12 1500) O2 Delivery Device: Nasal cannula (04/29/12 1500) GI/ Diet: clears Last BM: before surgery López: yes Urine: dark;clear;yellow (04/29/12 1200) LABS Lab Results Lab Test Name Results Date/Time NA 138 04/29/12 K 4.2 04/29/12 GLU 94 04/29/12 BUN 13 04/29/12 CR 0.77 04/29/12 HB 10.9 04/29/12 HCT 32.5 04/29/12 PLT 118 04/29/12 Psychosocial Issues: large supportive family Anticipated/Pending Procedures: none Orders to initiate/follow-up on: transfer orders Last Patient Visit (FACETS): 1520 Immediate concerns regarding the patient: Pain control lan of Arjun - Del Monson RN - 04/29/2012 3:18 PM PDTProblem: Pain, Acute (Adult, Obstetrics) Goal: Identify Signs and Symptoms and Related Risk Factors Goals: 1. Patient will maintain pain level comfortable for patient 2. Patient will maintain skin integrity and free of skin breakdown 3. Pt will remain free of falls or injury Interventions: 1. Assess pain every hour and PRN, administer medication as needed, abdominal binder for p ain, notify pain service for adjustments in epidura; 2. Turn Q2hrs and elevate extremities off of bed,out of bed three times a day 3. Continue restraints to prevent self extubation. Bed in low position with brakes locked, side rails x4, room near station, call light in reach, clutter free environment. Personal it ems in reach Interventions that worked/didn't work: pt rates pain 6-7 but appears comfortable, sleep. Ou t of bed once with moderate assist My recommendations forward:contact pain service if pt continues to have pain. Prn diluadid iv helps Patient Stability:Moderately Stable lan of Elva Banda RN - 04/29/2012 9:00 AM PDTProblem: Pain, Acute (Ad ult, Obstetrics) Goal: Identify Signs and Symptoms and Related Risk Factors Goals: 1. Patient will maintain pain level comfortable for patient 2. Patient will maintain skin integrity and free of skin breakdown 3. Pt will remain free of falls or injury Interventions: 1. Assess pain every hour and PRN, administer medication as needed, abdominal binder for p ain, notify pain service for adjustments in epidura; 2. Turn Q2hrs and elevate extremities off of bed,out of bed three times a day 3. Continue restraints to prevent self extubation. Bed in low position with brakes locked, side rails x4, room near station, call light in reach, clutter free environment. Personal it ems in reach lan of Rukhsana Carrillo OT - 04/29/2012 6:49 AM PDTOT Contact Note: Referral received. Will perform evaluation once pt out of ICU unless indicated otherwise. SUZIE CONTRERAS/L Silvia Rodriguez RN - 04/28/2012 2:53 PM PDTMeets Phase I Discharge Criteria (Stable For Transfer) : yes Major deviations/events or pertinent findings of mathieu-operative stay: none Anticipated post-op needs/devices/follow up: pain control Post-Op Diagnosis Codes: * Malignant neoplasm of gallbladder [156.0] Surgical Procedure Planned - Actual Procedure Performed: LIVER RESECTION - DIAGNOSTIC LAPAROSCOPY WITH BIOPSY, OPEN SEGMENT 4B/5 LIVER RESECTION, P ORTAL LYMPHADENECTOMY Specimens x 6 (FS); DIAGNOSTIC LAPAROSCOPY WITH BIOPSY - DIAGNOSTIC LAPAROSCOPY WITH BIOPSY Anesthesia: General & Epidural Length of procedure: In Room/Out of Room: 6 Hr 44 Min 48 Sec Surgeon(s) and Role: Panel 1: * Cornelia Stanton MD - Primary Panel 2: * Cornelia Stanton MD - Primary OR positioning comments: supine Neuro: POSS Sedation Level: Slighty Drowsy Last pain medication given: Pain medication totals: 100mcg fent Additional pain medication information: Functional Epidural: Yes THERAPY ASSISTANT: N/A Respiratory: RR: 12 , O2 Sat: 100 %, O2 Delivery: Simple mask Breath Sounds: WDL KARI: LLL: RUL: RLL: MERNA No Comment: Cardiac: BP: 120/76 mmHg HR: 86 GI: Nausea/Vomiting Status: No Signs/Symptoms: Interventions: Assessment: Comments: : Last void: cath Contact Name: Juan Abarca (spouse) Contact Number: [phone] Family contacted: Yes Comment: Belongings: documented in this en counter Plan of [...] | + +--------+ + + + | HEMOGLOBIN-COOX, POC | Routin | 04/28/2012 | Gallbladder [...] | + + | Other, Faculty - 05/10/2012 10:50 AM PDT | [...] [facility] | [address] | [place] [address] | | | GAVIN, SAM | [address] | | | [...] | + + + + + | [facility] | [address] | [place] [address] | | | SERVICES, CORE | NEAL [...] [facility] | [address] | [place] [address] | | | SERVICES, CORE | NEAL [...] [facility] | [address] | [place] [address] | | | SERVICES, CORE | PARK [...] | + + + + + | [facility] | [address] | [place] [address] | | | SERVICES, CORE | NEAL [...] [facility] | [address] | [place] [address] | | | SAM ALONSO | [address] [...] [facility] | [address] | [place] [address] | | | SERVICES, CORE | P[address] [...] | + + + + + | [facility] | [address] | [place] [address] | | | SERVICES, CORE | PARK [...] | + + + + + | [facility] | [address] | [place] [address] | | | SERVICES, SAM | NEAL [...] [facility] | [address] | [place], [place] | | | DG [place] OF [facility] | [address] | [address] | | | TESTS | | | [...] + | [facility] | [address] | [place] [address] | | | SERVICESSAM | [address] | | | + [...] + | [facility] | [address] | [place], [place] | | | DG POINT OF CARE | [address] | [address] | | | TESTS | | | [...] | + + + + + | [facility] | [address] | [place] [address] | | | SERVICES, CORE | [address] | | | + + + + + MAGNESIUM, PLASMA (05/01/2012 6:03 AM PDT) + +-------+ + + + | Component | Value | Ref Range | Performed | Pathologist | | | | | At | Signature | + +-------+ + + + | MAGNESIUM,P | 1.9 | 1.8 - 2.5 mg/dL | [facility] [...] [facility] | [address] | [place] [address] | | | SERVICES, CORE | [address] [...] | + + + + + | [facility] | [address] | [place] [address] | | | SERVICES, CORE | NEAL [...] [facility] | [address] | [place], [place] | | | DG POINT OF CARE | [address] | [address] | | | TESTS | | | [...] | [facility] | [address] | [place], [place] | | | JOHN CONTE OF [facility] | [facility] | [address] | | | TESTS | | | [...] [facility] | [address] | [place] [address] | | | SERVICES, CORE | [address] [...] | + + + + + | [facility] | [address] [facility] | [place] [address] | | | SERVICES, CORE | NEAL [...] [facility] | [address] | [place] [address] | | | SAM ALONSO | NEAL [...] | + + + + + | [facility] | [address] | [place] [address] | | | SERVICES, CORE | [address] | | | + + + + + OPERATION RECORD (04/29/2012 5:13 PM PDT) + + | Transcriptions | + + | Ruba Muhammad MD - 04/28/2012 10:30 PM PDT Date: | | 04/28/2012ttending Surgeon: Cornelia Stanton M.D.Brusher Tender(s): | | VENKATA Mcclainreoperative Diagnosis(es):Gallbladder | | [...] in place.Disposition:Extubated to the | | PACU.Indications:Ms. Corbin is a 51-year-old woman with an incidental finding of | | Q9awqgieovsll adenocarcinoma at her recent laparoscopic cholecystectomy foracute | | cholecystitis. Her pathology was reviewed at [facility]. She underwent aCT scan, which | | [...] sponge, and instrument counts were correct. Dr.Brett Stanton was scrubbed and actively | | involved in the critical portionsof the procedure. At the end of the case, the patient | | was extubated andbrought to the PACU in stable condition.NEL Mcclain | | was present for the critical portions of this procedure and final inspection for RSI | | was completed.Cornelia Stanton M.D.[facility] ([facility])Professor | | and Vice-Director Educational Radio of SurgeryThe Shahriar Nava Chair for Pancreatic Disease | | ResearchPancreatic/ HepatoBiliary and Foregut Working GroupsMail Code [id number] [facility] | | [place], [place]. [address]Zonow Fax (859) | | [phone]: [email or web address] Stanton M.D.Professor and Vice-Director Educational Radio of | | SurgeryThe Shahriar Nava Chair for Pancreatic Disease ResearchBaptist Memorial Hospital | | [place] ([facility])Division of Gastrointestinal and General SurgeryJS / [id number] / | | [id number] / [id number] / T: 04/28/2012 | |with electrocautery. Biopsy [...] case we needed to perform a | |Coco maneuver. We then finished the dissection identifying [...] needle, sponge, and instrument counts were correct. | |Cornelia Stanton was scrubbed and actively involved in the critical portions | |of the procedure. At the end of the case, the patient was extubated and | |brought to the PACU in stable condition. | | | | | |Ruba Lam MD | |I was present for the critical portions of this procedure and final inspection for RSI wa s completed. | | | |Cornelia Stanton M.D. | |[facility] ([facility]) | |Professor and Vice-Director Educational Radio of Surgery | |The Shahriar Nava Chair for Pancreatic Disease Research | |Pancreatic/ HepatoBiliary and Foregut Working Groups | |Mail Code [id number] | |[address] [place] [address] | |[place], [place]. [address] | | | | | |email: [email or web address] | | | | | |Cornelia Stanton M.D. | |Professor and Vice-Director Educational Radio of Surgery | |The Shahriar Nava Chair for Pancreatic Disease Research | |[facility] ([facility]) | |Division of Gastrointestinal and General Surgery | | | |JS / HS | |[id number] / [id number] / [id number] / | | | | | + [...] | + + + + + | [facility] | [address] | [place] [address] | | | SERVICES, CORE | NEAL [...] [facility] | [address] | [place] [address] | | | SERVICES, CORE | PARK [...] [facility] | [address] | [place] [address] | | | SERVICES, CORE | PARK [...] [facility] | [address] | [place] [address] | | | SERVICES, CORE | PARK [...] in | | | | | | [facility]. No | | | | | [...] | | + +---------+ + + | [facility] DEPARTMENT OF | | | [...] 3.2 | 2.4 - 4.7 mg/dL | [facility] | | | PLASMA | | | [...] | + + + + + | [facility] | [address] | [place] [address] | | | SERVICES, CORE | PARK [...] | + + + + + | [facility] | [address] | [place] [address] | | | SERVICES, CORE | [address] | | | + + + + + MAGNESIUM, PLASMA (04/28/2012 2:34 PM PDT) + +---------+ + + + | Component | Value | Ref Range | Performed | Pathologist | | | | | At | Signature | + +---------+ + + + | MAGNESIUM,P | 1.4 (L) | 1.8 - 2.5 mg/dL | [facility] [...] [facility] | [address] | [place] [address] | | | SERVICES, SAM | NEAL [...] | + + + + + | [facility] | [address] | [place] [address] | | | SERVICES, CORE | [address] | | | + + + + + INR (04/28/2012 2:34 PM PDT) + +-------+ + + + | Component | Value | Ref Range | Performed | Pathologist | | | | | At | Signature | + +-------+ + + + | INR | 1.11 | 0.90 - 1.20 INR | [facility] [...] | + + + + + | [facility] | [address] | [place] [address] | | | SERVICES, CORE | [address] | | | + + + + + NAHOMY (ERIC)MAYLIN (04/28/2012 8:38 AM PDT) + +-------+ + [...] | [facility] | [address] | [place], [place] | | | JOHN CONTE OF CARE | [address] | [address] | | | TESTS | | | [...] | [facility] | [address] | [place], [place] | | | JOHN CONTE OF ARJUN | [facility] | [address] | | | TESTS | | | [...] | | POC | | mmol/L | [facility] | | [...] | [facility] | [address] | [place], [place] | | | DG POINT OF CARE | [address] | [address] | | | TESTS | | | [...] | [facility] | [address] | [place], [place] | | | JOHN [facility]TE OF [place] | [facility] | [address] | | | TESTS | | | | + + + + + ANGELICA (ERIC)MAYLIN (04/28/2012 8:38 AM PDT) + +-------+ + + + | Component | Value | Ref Range | Performed | Pathologist | | | | | At | Signature | + +-------+ + + + | CHLORIDE, | 104 | 97 - 108 mmol/L | [facility] | | | POC | | | [facility] | | | | | | DG [...] | [facility] | [address] | [place], [place] | | | JOHN CONTE OF [place] | [address] | [address] | | | TESTS | | | [...] [facility] | [address] | [place], [place] | | | DG POINT OF [facility] | [address] | [address] | | | TESTS | | | [...] | [facility] | [address] | [place], [place] | | | JOHN [facility]TE OF CARE | [facility] | [address] | | | TESTS | | | [...] | + + + + + | [facility] | [address] | [place], [place] | | | DG [facility] | [address] | [address] | | | TESTS | | | [...] M.D./PathologistT: | | | | | | 3/sg | | | | | | Intraoperative [...] Jamarcus | | | | | | Tru/Student Fellowand | | | | | | [...] bed. | | | | | | On Site Wastewater Systems Technician | | | | | | sections [...] vein. | | | | | | On Site Wastewater Systems Technician | | | | | | sections [...] | | | | | | [id number], claims representative | | | | | | [...] | + + + + + | [facility] | [address] | [place] [address] | | | PATHOLOGY | [address] [...] + | Malignant neoplasm of gallbladder (HCC) Malignant neoplasm of gallbladder | + + documented in this encounter Administered Medications + +--------+ +------+------+ + | Medication Order | MAR | Action | Dose | Rate | Site | | | Action | Date | | | | + +--------+ +------+------+ + | bupivacaine (PF) (aka | Given | 04/29/19 | 8 mL | | Surgical | | MARCAINE,SENSORCAINE-MPF) | | 13 10:50 | | | Site | | injection INTRAPROCEDURE PRN, | | AM PDT | | | | | Starting 04/28/12 at 1050, | | | | | | | Until 04/28/12 at 1421 | | | | | | + +--------+ +------+------+ + +---+---+ | | | +---+---+ documented in this encounter
--- OUTSIDE RECORDS SUMMARY | ~2019-10-19 | XMS | Encounter Summary ---
Demographics + + + | Address | [address] | | | [place] [address] | + + + | Home Phone [...] Team Providers + +------+ + | Care Knocker Off Name | Role | Phone | + +------+ + | Tomasa Wagner | PCP | | + +------+ + Encounter Details +--------+ + + + + | Date | Type | Department | Care Team | Description | +--------+ + + + + | 05/24/ | MyChart | [facility] | Miguel Seymour, | RE: Share Info with | | 2014 | Encounter | [facility] | [address] | Dr. Tai Stanton | | | | [address] | [facility] | | | | | [address] | [place], [place] | | | | | Alexis, [facility] floor | [address] | | | | | [place], [place] | [phone] | | | | | [address] | | | | | | [phone] | | | +--------+ + + + [...]
--- OUTSIDE RECORDS SUMMARY | ~2019-10-19 | XMS | Encounter Summary ---
Demographics + + + | Address | [address] | | | [place] [address] | + + + | Home Phone [...] Providers + +------+ + | Care Real Estate Recruiter Name | Role | Phone | + [...] [address] | | | | [address] [place], [place] | [address] | | | | | [address] | [place] [address] | | | | | | [phone] | | | | | | | [...]
--- OUTSIDE RECORDS SUMMARY | ~2019-10-19 | XMS | Encounter Summary ---
Demographics + + + | Address | [address] | | | [place] [address] | + + + | Home Phone [...] + | Author | [facility] | | | and [place] | + + + | Organization | [facility] | | | and [place] | + + + | Address | Unknown | + + + | Phone | Unavailable | + + + Support + + + + + | Name | Relationship | Address | Phone | + + + + + | Poncho Oquendo | ECON | [address] | | | | | [place] | | | | | [address] | | + + + + + | Marta Upton | ECON | [address] | | | | | [address] | | + + + + + Care Team Providers + +------+ + | Care Manager Restaurant Name | Role | Phone | + [...] + + | 05/01/ | Telephone | [facility] | Reinaldo | Eli | | 2013 | | [facility] | Epifanio Soler MD [address] | | | | | [facility] CL[facility] [address] | [facility] | | | | | [address] | [address] [place], [place] | | | | | [place] [address] | [address] | | | | | [phone] | | | +--------+ + + + [...] 05/01/2013 12:56 PM PDTFYI 05/01/13 Called [facility]l [employer] and verified with pharmacist that Aura's vicodin can be 5/325 vs 5/500.K H elephone Encounter - Gloria Ramirez - 05/01/2013 12:09 PM PDTPharmacist calling from [employer]. Dr. Najera has prescribed Vicodin 5/500. But [...] [facility] | | | | | | [place] [address] | | | | | | [phone] | | | | | | | | +--------+---------+ + + + documented as of this encounter Visit Diagnoses Not on filedocumented in this encounter"
--- OUTSIDE RECORDS SUMMARY | ~2019-10-19 | XMS | Encounter Summary ---
Demographics + + + | Address | [address] | | | [place] [address] | + + + | Home Phone [...] Team Providers + +------+ + | Care Solar Energy System Installer Name | Role | Phone | [...] | | | | | cancer | [address] | [address] | | | | | (HCC) | [address] | [facility] | | | | | Procedures | [address] | [address] | | | | | CONSULT TO | [facility] [place] | [facility] [place] | | | | | HEMATOLOGY / | [address] | [address] Phone: | | | | | ONCOLOGY | Phone: | [phone] | | | | | PRACTICE | [phone] | Fax: | | | | | | Fax: | [phone] | | | | | | [phone] | | + +--------+ + + + [...] | cancer | [address] | [address] [facility] | | | | | (HCC) | Francesco Agosto | Surendra Carreon | | | | | Procedures | [address] | [address], | | | | | CONSULT TO | [place], [place] | [place] | | | | | SURGERY - | [address] | [address] | | | | | GENERAL | Phone: | Phone: | | | | | | [phone] | [phone] | | | | | | Fax: | Fax: | | | | | | [phone] | [phone] | +--------+--------+ + + + + Encounter Details +--------+ + + + + | Date | Type | Department | Care Team | Description | +--------+ + + + + | 06/14/ | Powerhouse Mechanic Supervisor | [facility] | Miguel Seymour, | Gallbladder cancer | | 2015 | | [facility] | [address] | (HCC) (Primary Dx) | | | | [address] | [facility] | | | | | [address] | [place], [place] | | | | | Alexis, [facility] floor | [address] | | | | | [place], [place] | [phone] | | | | | [address] | | | | | | [phone] | | | +--------+ + + + [...] this encounter Miscellaneous Notes Telephone Encounter - Adina Zazueta RN - 06/14/2014 10:51 AM PDTReferrals entered for pt to see and for recurrent gallbladder cancer. Pt aware per , will assist pt with coordinating apts. documented in this enc ounter Plan of Treatment Not on filedocumented as of this encounter Visit Diagnoses + + | Diagnosis | + + | 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
--- OUTSIDE RECORDS SUMMARY | ~2019-10-19 | XMS | Encounter Summary ---
Demographics + + + | Address | [address] | | | [place] [address] | + + + | Home Phone [...] Team Providers + +------+ + | Care Spark Plug Assembler Name | Role | Phone | + +------+ + | Tomasa Wagner | PCP | | + +------+ + Encounter Details +--------+ + + + + | Date | Type | Department | Care Team | Description | +--------+ + + + + | 09/13/ | Abstract | Digestive Health | Tai Statnon, | | | 2012 | | Center at [facility] [address] | [address] [facility] | | | | | [facility] | [facility] | | | | | for Health and | [place], [place] | | | | | [facility], [place] [address] | [address] | | | | | [place], [place] | [phone] | | | | | [address] | | | | | | [phone] | | | +--------+ + + + [...]
--- OUTSIDE RECORDS SUMMARY | ~2019-10-19 | XMS | Encounter Summary ---
Demographics + + + | Address | [address] | | | [place] [address] | + + + | Home Phone [...] Team Providers + +------+ + | Care Straw Hat Brim Raiser Operator Name | Role | Phone | + +------+ + | Valeriy Carmona MD | PCP | | + +------+ + Encounter Details +--------+ + + + + | Date | Type | Department | Care Team | Description | +--------+ + + + + | 06/07/ | Pharmacy | Outpatient Retail | | | | 2014 | Visit | [facility] | | | | | | [address] | | | | | | [place], [place] | | | | | | [address] | | | | | | [phone] | | | +--------+ + + + [...]
--- OUTSIDE RECORDS SUMMARY | ~2019-10-19 | XMS | Encounter Summary ---
Demographics + + + | Address | [address] | | | [place] [address] | + + + | Home Phone [...] Providers + +------+ + | Care Freight Rate Clerk Name | Role | Phone | + +------+ + | Tomasa Wagner | PCP | | + +------+ + Reason for Visit + +--------+ + | Reason | Onset | Comments | | | Date | | + +--------+ + | Refill Request | 06/28/ | | | | 2014 | | + +--------+ + Encounter Details +--------+ + + + + | Date | Type | Department | Care Team | Description | +--------+ + + + + | 06/28/ | Telephone | [facility] | Zully Soto RN | Refill Request | | 2014 | | [facility] at [place] | [place], [place] | | | | | [address] | [address] | | | | | [address] | | | | | | [facility] | | | | | | [place], [place] | | | | | | [address] | | | | | | [phone] | | | +--------+ + + + [...] this encounter Miscellaneous Notes Telephone Encounter - Zully Soto RN - 07/01/2014 2:34 PM PDTRouting to GynOnc nurse po ol for follow up elephone Encounter - Pavithra Lee MD - 06/28/2014 5:37 PM PDTRoute to [facility]ina respiratory therapy aide onc RN. Residents cannot f ill outpatient narcotic prescriptions. Must go through Dr. Henderson. Thanks! Pavithra Aviles MD Obstetrics and Gynecology, PGY1 Pager #[phone] documented in this en counter Plan of Treatment Not on filedocumented as of this encounter Visit Diagnoses Not on filedocumented in this encounter"
--- OUTSIDE RECORDS SUMMARY | ~2019-10-19 | XMS | Encounter Summary ---
Demographics + + + | Address | [address] | | | [place] [address] | + + + | Home Phone [...] Author + + + | Author | [facility] | + + + | Organization | [facility] | + + + | Address [...] Team Providers + +------+ + | Care Voltage Regulator Assembler Name | Role | Phone | + +------+ + | Tomasa Wagner | PCP | | + +------+ + Encounter Details +--------+ + + + + | Date | Type | Department | Care Team | Description | +--------+ + + + + | 10/02/ | Abstract | Digestive Health | Tai Stanton, | | | 2012 | | Center at [facility] [address] | [address] [facility] | | | | | [facility] | [facility] | | | | | for Health and | [place], [place] | | | | | [facility], [place] [address] | [address] | | | | | [place], [place] | [phone] | | | | | [address] | | | | | | [phone] | | | +--------+ + + + [...]
--- OUTSIDE RECORDS SUMMARY | ~2019-10-19 | XMS | Encounter Summary ---
Demographics + + + | Address | [address] | | | [place] [address] | + + + | Home Phone [...] + | Author | [facility] | | | and [place] | + + + | Organization | [facility] | | | and [place] | + + + | Address | Unknown | + + + | Phone | Unavailable | + + + Support + + + + + | Name | Relationship | Address | Phone | + + + + + | Poncho Oquendo | ECON | [address] | | | | | [place] | | | | | [address] | | + + + + + | Marta Upton | ECON | [place] | | | | | [address] | | + + + + + Care Team Providers + +------+ + | Care Truck Loader And Unloader Name | Role | Phone | + [...] + + | 11/29/ | Anesthesia | [facility] | Roger Callaway MD | | | 2018 | [facility] | [address] | | | | | OPER[address] | [place] [address] | | | | | [address] | [phone] | | | | | [place], [place] | | | | | | [address] | Cass Harris, | | | | | [phone] | MD [address] | | | | | | [place] [address] | | | | | | [phone] | | | | | | | | +--------+ + + + + Anesthesia Record + + + + + | Procedure Name | Responsible | Anesthesia Start | Anesthesia Stop Time | | | Anesthesiologist | Time | | + + + + + | CYSTOSCOPY URETERAL | Roger Callaway MD | 11/29/18 1329 | 11/29/18 1401 | | STENT stent removal | | [...] 11/29/18 1550 by | | eral | ramq-vux-icttir catheter system; | Kim Denson RN | Nikky Guallpa RN | | IV | 20 gauge; expected removal post | | | | | discharge; 11/29/18; 1550 | | | +--------+ + + + | Airway | Placement Date: 11/29/18; | 11/29/18 1335 by | 11/29/18 1552 by | | | Placement Time: 1335; Mask | Cass Steven, | Nikky Guallpa RN | | | [...] encounter [place] Notes Anesthesia Postprocedure Evaluation - Cass Harris MD - 11/29/2018 2:12 PM PDTForma tting of this note might be different from the original. ANESTHESIA POSTANESTHESIA EVALUATION Aura Upton 58 y.o. female 1960 [id number] Procedure(s) CYSTOSCOPY URETERAL STENT stent removal and replacement (Left Ureter) Cooperates? Yes Mental Status Performs simple tasks. Respiratory Satisfactory - Airway patent (self maintained). Cardiovascular Satisfactory - Blood pressure and heart rate acceptable Temperature Satisfactory Pain Satisfactory N/V Control Satisfactory Hydration Satisfactory - No signs of dehydration Vitals Value Taken Time Temp 36.8 C (98.2 F) 11/29/2018 14:07 Pulse 82 11/29/2018 14:07 Resp 18 11/29/2018 14:07 BP 118/68 11/29/2018 14:07 Arterial Line BP Arterial Line BP 2 SpO2 100 % 11/29/2018 14:07 Electronically signed by Cass Harris MD 11/29/2018 14:12 [facility] Cass Harris MD at 019 2:12 PM PDTAnesthesia Preprocedure Evaluation - Cass Harris MD - 11/29/2018 1: 13 PM PDT ANESTHESIA PREANESTHESIA EVALUATION Aura Upton 58 y.o. female 1960 [id number] Procedure(s): CYSTOSCOPY URETERAL STENT stent removal and replacement (Left Ureter) Medical,anesthesia, drug, allergy histories reviewed, NPO status verified. (-) perioperative beta-elly/statin not given/taken, reason: not applicable/Not taking Be ta-Elly. 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 extends >30 degrees. Jaw protrusion normal. Dental grossly normal except where noted below. CV cardiovascular normal Pulm Clear to auscultation bilaterally. Anesthesia Plan ASA: 3 Type: General. Induction: Intravenous. Potential problems: None anticipated. Monitors: Standard ASA monitors. Postop Pain Management: Consent statement: Anesthetic plan, alternatives, risks and benefits discussed with patient. Consenting person understands and agrees to proceed. Electronically Signed by: Cass Harris MD ESig date/time: 11/29/2018 13:13 documented in this encounter Miscellaneous Notes Anesthesia Post-op Handoff - Cass Harris MD - 11/29/2018 2:10 PM PDT ANESTHESIA HANDOFF NOTE Aura Upton 58 y.o. female 1960 [id number] CYSTOSCOPY URETERAL STENT stent removal and replacement (Left Ureter) HANDOFF NOTE Handoff Protocol Used: post-procedure handoff [...] receiving team Patient Location: Phase I Condition: lethargic Airway/O2: face mask with O2 Multimodal analgesia: multimodal analgesia used between 6 hours prior to anesthesia start t o PACU discharge The significant anesthesia concerns and VS in Epic were reviewed with the receiving team. Cass Harris MD 11/29/2018 14:10 [facility] Cass Harris MD at 019 2:10 PM PDTdocumented in this encounter Plan of Treatment +--------+---------+ + + + | Date | Type | Specialty | Care Team | Description | +--------+---------+ + + + | 10/29/ | Office | Urology | Pedro Green, | | | 2019 | Visit | | DO [address] [facility] | | | | | | [place] [address] | | | | | | [phone] | | | | | | | [...] 19 1:33 | | | | | 11/29/18 at 1333, Anesthesia | | PM PDT | | | | | Intra-op | | | | | | + +-------+ +-------+---+---+ +---+---+ | | | +---+---+ + +-------+ +------+---+---+ | midazolam (VERSED) 1 mg/mL | Given | 11/30/19 | 2 mg | | | | injection Intravenous, JONEN, | | 19 1:27 | | | | | Starting Tue11/29/18 at 1327, | | PM PDT | | | | | Anesthesia Intra-op | | | | | | + +-------+ +------+---+---+ +---+---+ | | | +---+---+ + +-------+ +-------+---+---+ | propofol (DIPRIVAN) injection | Given | 11/30/19 | 20 mg | | | | Intravenous, PRN, Starting Tue | | 19 2:01 | | | [...]
--- OUTSIDE RECORDS SUMMARY | ~2019-10-19 | XMS | Encounter Summary ---
Demographics + + + | Address | [address] | | | [place] [address] | + + + | Home Phone | | + + + | Preferred Language | Unknown | + + + | Marital Status | | + + + | Jehovah'S Witness Affiliation | Unknown | + + + | Race | White | + + + | Ethnic Group | Not or | + + + Author + + + | Author | [facility] | | | and [place] | + + + | Organization | [facility] | | | and [place] | + + + | Address | Unknown | + + + | Phone | Unavailable | + + + Support + + + + + | Name | Relationship | Address | Phone | + + + + + | Poncho Oquendo | ECON | [address] | | | | | [place] | | | | | [address] | | + + + + + | Marta Upton | ECON | [place] | | | | | [address] | | + + + + + Care Team Providers + +------+ + | Care Supervisor Water Softener Service Name | Role | Phone | + +------+ + PCP | Unavailable | + +------+ + Encounter Details +--------+ + + + + | Date | Type | Department | Care Team | Description | +--------+ + + + + | 04/11/ | Abstract | [place] [facility] | Re[place]do, | | | 2013 | | Conversion Location | Epifanio Soler MD [address] | | | | | [address] | [facility] | | | | | [place], [place] | [address] | | | | | [address] | [address] | | | | | [phone] | | | +--------+ + + + [...] | | | | [facility] [address] | | | | | | [phone] | | | | | | | | +--------+---------+ + + + documented as of this encounter Visit Diagnoses Not on filedocumented in this encounter
--- OUTSIDE RECORDS SUMMARY | ~2019-10-19 | XMS | Encounter Summary ---
Demographics + + + | Address | [address] | | | [place] [address] | + + + | Home Phone | | + + + | Preferred Language | Unknown | + + + | Marital Status | | + + + | Orthodoxy Affiliation | Unknown | + + + | Race | White | + + + | Ethnic Group | Not or | + + + Author + + + | Author | [facility] | | | and [place] | + + + | Organization | [facility] | | | and [place] | + + + | Address | Unknown | + + + | Phone | Unavailable | + + + Support + + + + + | Name | Relationship | Address | Phone | + + + + + | Poncho Oquendo | ECON | [address] | | | | | [place] | | | | | [address] | | + + + + + | Marta Upton | ECON | [place] | | | | | [address] | | + + + + + Care Team Providers + +------+ + | Care Doughnut Batter Mixer Name | Role | Phone | [...] + | 08/04/ | Orders Only | [facility] | Reinaldo, | Community acquired | | 2018 | | [facility] | Epifanio Soler MD [address] | pneumonia of right | | | | [facility] [address] | [facility] | lower lobe of lung | | | | [address] | [address] [place], [place] | (Primary Dx) | | | | [place] [address] | [address] | | | | | [phone] | | | +--------+ + + + [...] [address] | | | | | | [place] [address] | | | | | | [phone] | | | | | | | | +--------+---------+ + + + documented as of this encounter Visit Diagnoses + + | Diagnosis | + + | Community acquired pneumonia of right lower lobe of lung - Primary | + + documented in this encounter"
--- OUTSIDE RECORDS SUMMARY | ~2019-10-19 | XMS | Encounter Summary ---
Demographics + + + | Address | [address] | | | [place] [address] | + + + | Home Phone [...] | Author | [facility] | | | and [place] | + + + | Organization | [facility] | | | and [place] | + + + | Address | Unknown | + + + | Phone | Unavailable | + + + Support + + + + + | Name | Relationship | Address | Phone | + + + + + | Poncho Oquendo | ECON | [address] | | | | | [place] | | | | | [address] | | + + + + + | Marta Upton | ECON | [place] | | | | | [address] | | + + + + + Care Team Providers + +------+ + | Care Employment Specialist/Program Manager Name | Role | Phone | [...] cancer, | | 2017 | | [facility] | Epifanio Soler MD [address] | carcinoma (HCC) | | | | ONCOLOGY CLINIC [address] | [facility] | | | | | [address] | [address] [place], [place] | | | | | [place] [address] | [address] | | | | | [phone] | | | +--------+ + + + [...] | | | | | [place] [address] | | | | | | [phone] | | | | | | | | +--------+---------+ + + + documented as of this encounter Visit Diagnoses + + | Diagnosis | + + | Gallbladder cancer, carcinoma (HCC) Malignant neoplasm of gallbladder | + + documented in this encounter"
--- OUTSIDE RECORDS SUMMARY | ~2019-10-19 | XMS | Encounter Summary ---
Demographics + + + | Address | [address] | | | [place] [address] | + + + | Home Phone [...] + | Poncho Oquendo | ECON | [address] | | | | | [place] | | | | | [address] | | + + + + + | Marta Upton | ECON | [place] | | | | | [address] | | + + + + + Care Team Providers + +------+ + | Care Cadastral Engineer Name | Role | Phone | [...] [address] | | | | | | [place] [address], | | | | | | [place] [address] | | | | | | [phone] | | | +--------+ + + + [...] [address] | | | | | | [place] [address] | | | | | | [phone] | | | | | | | | +--------+---------+ + + + documented as of this encounter Visit Diagnoses Not on filedocumented in this encounter"
--- OUTSIDE RECORDS SUMMARY | ~2019-10-19 | XMS | Encounter Summary ---
Demographics + + + | Address | [address] | | | [place] [address] | + + + | Home Phone [...] Team Providers + +------+ + | Care Registered Dental Hygienist Name | Role | Phone | + +------+ + | Valeriy Bay MD | PCP | | + +------+ [...] | | 2018 - | Encounter | [address] | [address] | | | | | [place], [place] | [address] | | | 12/27/ | | [address] | [place], [place] | | | 2017 | | [phone] | [address] | | | | | | [phone] | | | | | | | | | | | | Marbin Espinoza MD | | | | | | [address] | | | | | | [place], | | | | | | [place] [address] | | | | | | [phone] | | | | | | | | | | | | Lloyd Garcia, | | | | | | [address] | | | | | | [address] | | | | | | [place], [place] | | | | | | [address] | | | | | | [phone] | | | | | | | [...] + documented as of this encounter Discharge Sasha Emery MD - 12/27/2017 1:16 PM PSTFormatting of this note might be differen t from the original. [facility] Discharge Summary Discharging Provider: SASHA JARRETT MD Discharging Attending Physician: Lugii Garcia MD Hospital Stay: 4 day(s) PCP: Valeriy Bay MD Admission Date: 12/23/2017 Discharge Date: 12/27/2017 Hospital Stay: 4 day(s) Reason for Admission: Ms. Upton is a 57 yo woman with a hx of metastatic cholangiocarcinoma (Dx 2012, on palli ative gemcitabine/cisplatin), hx of SBO s/p venting gastrostomy tube who presented to OSH on 12/23 with hypotension, tachycardia, and fever after accessing her portacath at her [facility]. She was admitted for septic shock found to have Klebsiella bacteremia with concern for colonized portacath. Principal Final Diagnosis: Klebsiella bacteremia Additional Diagnoses: Infected portacath Procedures: Left portacath removal 12/27 JULY, prerenal -- resolving Hospital Course: # Klebsiella bacteremia # infected portacath At [facility], Ms. Upton was hypotensive to 70/40s with fever concerning for septic s hock. She received IV fluids and 1 unit pRBCs for Hgb of 7.0 and was transferred to [facility] for further care. On admission to [facility], she was no longer hypotensive and did not require vasopressors. She was started on cefepime, flagyl, and vancomycin. Blood cultures at OSH fro m 12/23 revealed Klebsiella pneumoniae from both R hand and portacath. It was pansentitive. I nfectious disease was consulted who found that pt has Klebsiella bacteremia 1 month ago camdeneric whiting admitted to [facility] for sepsis. Given 2 bacteremic events, portacath [...] date. Culture from cath tip 12/27: pending [facility] Blood culture 12/23 x2 (peripheral and port) GNR; cx Klebsiella pneumonia (R: ampicillin; s: cefazolin, ceftriaxone, meropenem, ciprofloxacin, tmp/smx) Discharge Medications: Medication List START taking these medications ciprofloxacin HCl 500 mg Tab Commonly known as: CIPRO Take 1 tablet by mouth every twelve hours. Indications: port infection NARCAN 4 mg/actuation [place] Generic drug: naloxone Instill 1 spray into [...] Why: For wound re-check Contact information [address] [place] [id number] VALERIY BAY MD . Specialty: Family Medicine Contact information [facility] [address] [place] [id number] Discharge Physical Exam: Last 24 hour min/max [...] extremities antigravity Psych: appropriate affect. Lines: none Sasha Jarrett M.D. Internal Medicine PGY-3 Pager [phone] Associated attestation - Lloyd Garcia MD - 12/27/2017 10:01 PM [facility] Date of admission: 12/23/2017 11:11 PM Today's date: 12/27/2017 Hospital day 4 A resident assisted with documenting this service. I personally interviewed the patient and performed the ivey elements of the physical examination. I reviewed and verified all informa tion documented by the resident, Sasha Jarrett, and developed an updated assessment and plan. I agree with the documentation with the following additions/exceptions: Assessment/Plan: Mrs. Upton is a 57 year old female with metastatic cholangiocarcinoma (dx 2012) on palli ative chemotherapy, SBO s/p venting [...] and follow up plan. Lloyd Garcia MD Cash Register Mechanictool grinder operator surface Clinical Hospitalist and Medicine Teaching Service Division of Hospital Medicine Pager [phone] Patients Hospital Problem List: Active Hospital Problems [...] encounter Discharge Instructions Discharge Instr - Diet Lloyd Garcia MD - 12/27/2017 12:40 PM PST{Diet Instructions:18 330} Discharge Instr - Diet (facility) Lloyd Garcia MD - 12/27/2017 12:40 PM PST{Diet Inst ructions:59202} Discharge Instr - Activity (facility) Lloyd Garcia MD - 12/27/2017 12:40 PM PST{Activ ity Orders:91152} Additional Instructions Lloyd Garcia MD - 12/27/2017 12:39 PM PST{Additional Instruct ions AVS:94321} Opioid Pain Management {Opioid pain medication plan:54689} documented in this encounter Medications at Time [...] into | 2 each | 0 | 11//20 | | | mg/actuation nasal | nose [...] Weight: 60.3 kg (132 lb 15 oz) (12/23/17 2322) Physical Exam: General: pleasant wjx-ixhuw-lkvalgwai woman lying in bed in no acute [...] (or 3 results) - Refreshable Recent Labs 12/23/17233212/24/1744012/25/171 12/25/1749 12/25/17717 NA 144 -- 143 -- -- 142 [...] oral BID Microbiology: 11/07 blood culture at [facility] also grew klebsiella pneumoniae, when she had sepsis 12/23 blood culture at [facility] Klebsiella pneumoniae NGTD 12/23 blood cultures here Imaging: No new imaging Hospital problem list: Patient Active Problem List Diagnosis Date Noted Bacteremia due to Gram-negative bacteria 12/24/2017 Priority: 1 JULY (acute kidney injury) (HCC) 12/24/2017 Priority: 2 Cholangiocarcinoma (HCC) 04/27/2012 Priority: 3 Overview Note: -Diagnosed 2012. Followed by Dr. Ragland at [facility] in [place]. -04/26/2012: R0 Resection. -05/31/2012-09/03/2012 Chemotherapy: Xeloda/gemictabine x4 [...] her port has been used. Records per [facility] from 11/07 and 12/23. Was on [...] Arley ramirez - update Dr. Ragland in [place] on Tuesday # thrombocytopenia Likely chemotherapy related [...] Maker Primary Surrogate Decision Maker Poncho Oquendo [phone] Patient was staffed with my attending Dr. Garcia who agrees with my assessment and plan unl ess otherwise indicated. Myriam Holt MD 12/25/2017 PGY1 physician [id number] Associated attestation - Lloyd Garcia MD - 12/26/2017 9:53 PM PSTGENERAL MEDICINE UT OGRESS NOTE ATTESTATION Date of admission: 12/23/2017 [...] removal, documenting, reviewing records. Lloyd Garcia MD Cash Register Mechanictool grinder operator surface Clinical Hospitalist and Medicine Teaching Service Division of Hospital Medicine Pager [phone] Patients Hospital Problem List: Active Hospital Problems 1) *Bacteremia due to Gram-negative bacteria 2) JULY (acute kidney injury) (HCC) 3) Chronic use of opiate drugs therapeutic purposes 4) Hx of small bowel obstruction 5) Gastrostomy tube in place (HCC) 6) Insomnia 7) Moderate protein-calorie malnutrition (HCC) Myriam Holt MD - 12/25/2017 10:08 AM PSTFormatting of this note might be different from e original. [facility] Progress Note 12/25/2017 Admit Date: 12/23/2017 Hospital Day: 2 Attending Physician: Dr. Marbin Espinoza 24 Hour Events/ Subjective: -transferred to [facility] from intensive care -"take out my port [...] Weight: 60.3 kg (132 lb 15 oz) (12/23/17 2322) Physical Exam: General: pleasant pkz-fkvlo-szqxppjfa woman lying in bed in no acute [...] (or 3 results) - Refreshable Recent Labs 12/23/17 2333 12/24/17 0441 12/25/17 0031 12/25/17 0649 12/25/17 0718 NA 144 [...] (or 3 results) - Refreshable Recent Labs 12/23/17 2333 12/24/17 0441 12/25/17717 WBC 17.23* 22.23* 20.67* HB 9.7* 9.5* [...] oral BID Microbiology: 12/23 blood culture at [facility] gram negative bacilli NGTD 12/23 blood cultures here Imaging: No new imaging Hospital problem list: Patient Active Problem List Diagnosis Date Noted Bacteremia due to Gram-negative bacteria 12/24/2017 Priority: 1 JULY (acute kidney injury) (HCC) 12/24/2017 Priority: 2 Cholangiocarcinoma (HCC) 04/27/2012 Priority: 3 Overview Note: -Diagnosed 2012. Followed by Dr. Ragland at [facility] in [place]. -04/26/2012: R0 Resection. -05/31/2012-09/03/2012 Chemotherapy: Xeloda/gemictabine x4 [...] - f/u blood cultures here and [facility]: no new information this AM from [facility] - repeat blood culture x 1 in [...] Arley ramirez - update Dr. Ragland in [place] on Tuesday # thrombocytopenia Likely chemotherapy related [...] Maker Primary Surrogate Decision Maker Poncho Oquendo [phone] Patient will be staffed with my attending physician, Dr. Marbin Espinoza, within 24 hours. Myriam Holt MD 12/25/2017 PGY1 physician [id number] Associated attestation - Marbin Espinoza MD - 12/25/2017 7:16 PM PSTI agree with bita carmen resident note. For additional information, please refer to my note from today's date. Marbin Espinoza MD Clinical Hospitalist & Medical Teaching Services [facility] Pager [phone] Josette suarez MD - 12/24/2017 11:28 AM PSTFormatting of this note might be different fro m the original. MICU Attending Note Admission Date: 12/23/2017 Length of stay: 1 days ID: Aura Upton is a 57 y.o. female with metastatic cholangiocarcinoma (on palliative chemotherapy with gemcitabine/cisplatin q3wk) admitted to the MICU from [place] for suspec ashley septic shock. Present on [...] who is no longer critica lly ill. JOSETTE SALAZAR MD [facility] [address] [place] [address] Brittany rCouch MD - 12/24/2017 6:14 AM PST [facility] MEDICAL ICU - PROGRESS NOTE Hospital Day: 1 | ICU Day: 1 ID/CC: Aura Upton is a 57 y.o. woman w/ metastatic cholangiocarcinoma (on palliative chemotherapy with gemcitabine/cisplatin q3wk) admitted to the MICU from [place] for suspe cted septic shock. Consultants: HIEN, [...] the duration of her hospital ization at [facility] and continued to have intermittent fevers and chills while she was there. S he was frustrated with [facility] because they would only send her to SNF or home with hospice. S he is curious about her care. Here she denies suprapubic pain, flank pain, dysuria or increa sed urinary frequency. Denies cough, SOB, CP. Vital Signs: Cuff BP (!) 88/61 (12/24/17 1100) | BP Min: 77/54 Max: 106/72 Cuff MAP 70 mmHg (12/24/171099) | BP Mean Min: 63 mmHg Max: 83 mmHg Art Line BP | No Data Recorded Art Line MAP | No Data Recorded HR 96 (12/24/171099) | Pulse Min: 67 Max: 106 | Cardiac Rhythm: Normal Sinus Rhythm;Regu lar (12/24/17 1100) Temp 36.9 C (98.4 F) (12/24/17 0800) | Temp Min: 36.7 C (98.1 F) Max: 36.9 C (9 8.4 F) RR 20 (12/24/17 1100) | Resp Min: 10 Max: 28 SpO2 96 % (12/24/171099) | SpO2 Min: 93 % Max: 100 [...] A&O, CN2-12 grossly intact Laboratories: Recent Labs 12/23/17233212/24/17440 WBC 17.23* 22.23* HB 9.7* 9.5* HCT 30.2* 29.1* MCV 98.4 96.4 PLT 51* 67* NEUTROPHILCO 14.99* 19.72* LYMPHSABS 0.29* 0.67* MONOCYTECO 0.16 0.46 EOSCO 0.00 0.01 BASOPHILCO 0.00 0.05 IMGRANABS 1.79* 1.32* No results for input(s): INRPT, APTT, FIBRINOGEN in the last 720 hours. Recent Labs 12/23/17233212/24/17440 NA 144 143 K 3.7 4.3 CL 111* 112* BICARB 22 21 BUN 16 18 CR 1.34* 1.26* CA 7.4* 7.4* ANIONGAP 11 10 Recent Labs 12/23/173 12/23/178 12/24/171 GLU 111* 127* 87 Recent Labs 12/23/173 12/24/171 AST 214* 170* ALT 77* 72* TBILI 0.9 0.9 AP 243* 232* ALB 2.5* 2.2* TP 6.1* 6.1* Recent Labs 12/23/172332 LACTICACID 2.8 Lab Orders - In Process (Through next 24h) Lactate 2.8 Start Ordered 12/24/17 0430 CBC, WITH DIFFERENTIAL ONCE 12/24/17 0428 12/23/172329 CULTURE, BLOOD BACTI & YEAST ONCE 12/23/17232012/23/17 233 CULTURE, BLOOD BACTI & YEAST ONCE 12/23/172320 Microbiology: 12/23 Blood Culture x2: pending Imaging: [...] gemcitabine/carboplatin q3wk) admitted to the MICU from [place] for suspected s eptic shock. Neurological # [...] Oquendo, Brittany Dean MD Anesthesiology PGY-1 p: [phone] 12/24/2017, 6:14 AM Template created by [employer] [...] (gemcitabine/carboplatin) for metastatic cholangiocarcinoma. Since arrival to [place] E D has received 4L fluid and 1 unit PRBC for HGB of 7. Upon arrival to MICU BP had stabilize d and she continued to be on room air. She is having RUQ abdominal pain since getting on e plane for transfer. Dx: 1. Metastatic [...] floor. Dagoberto Iniguez MD Pulmonary/Critical Care Medicine [id number] documented in this en counter H&P Notes Sasha Jarrett MD - 12/24/2017 5:05 PM PSTFormatting of this note might be differen t from the original. Internal Medicine History and Physical Attending Physician: Marbin Espinoza MD PCP: Valeriy Bay MD Chief Complaint: fever, chills HPI: Aura Upton is a 57 y.o. woman with metastatic cholangiocarcinoma (dx 2012, on palliat jayjay chemotherapy gem/cisplatin, portacath placed 2014), hx of SBO with gastrostomy tube (for venting), anxiety/insomnia, and recent admission for sepsis of unclear etiology who was adm itted to the MICU for septic shock found to have gram negative bacteremia and concern for in fected portacath. Ms. Upton presented to her infusion clinic for chemotherapy on 12/23 and within minutes o f getting portacath accessed developed fever, rigoring, muscle aches, and presyncope. Per re port was found to be febrile to 103.1 F and hypotensive to 73/50 (per pt report b/l SBP 100- 110s). She denies any redness, tenderness, or purlence from left upper chest where portacath is located. She denies any cough, sputum production, skin wounds, abdominal pain, diarrhea, constipation, abdominal pain, n/v, dysuria, urinary urgency, urinary frequency. She was sent to [facility] ER and was reported to have crackles in left lower lung harrell (unclear if CXR was obtained) with WBC 1.7, ANC 1500 Hgb 7, Plt 61 She was star ashley on vancomycin, cefepime, and received 3 L of fluids and 1 unit of pRBCs en route to [facility] for higher level of care. Per report, her MAP remained >5 en route via helicopter and on ar rival to [facility] MICU her BP was 93/62, HR 68, and she was afebrile. She reported intermittent mild RUQ pain en route to [facility] which has since resolved. No worsening jaundice, itching, aco lic stools, or dark urine. Her blood cultures (1 from portacath, 1 from right hand) drawn at [facility] on 12/23 rev eal gram negative bacilli. Of note, She was recently hospitalized at [facility] ([place], [place]) for severe se psis of unclear etiology and received 14 days of antibiotics and reports intermittent feveri ng and chills. Portacath was accessed that hospital stay and wasn't accessed again prior to access on 12/23 at [facility]. Interestingly, she said she was discharged on hospice but quickly discharged from hospice because she was "forced to go to hospice or rehab." She rep orts she had regained strength since discharge and was feeling well prior to 12/23. Past Medical History: I have updated the Problem List with the patient's relevant diagnoses. Past Medical History * (Principal)Bacteremia due to Gram-negative bacteria JULY (acute kidney injury) (HCC) Cholangiocarcinoma (HCC) Overview -Diagnosed 2012. Followed by Dr. Ragland at [facility] in [place]. -04/26/2012: R0 Resection. -05/31/2012-09/03/2012 Chemotherapy: Xeloda/gemictabine x4 cycles. -10/04/2012: XRT with Xeloda -06/07/2014: relapse s/p complete resection. -07/29/2014-11/29/2014 Chemotherapy: Cisplatin/Gemcitabine -03/15/2016: Relapse -04/12/2016-08/09/2016 Chemotherapy: Cisplatin/Gemcitabine x6 cycles -02/25/2017-04/06/2017 Immunotherapy: Pembolizumab x4. -05/20/2017 Palliative Chemotherapy: Cisplatin/Gemcitabine Q3 weeks. Perforation of nasal septum Pelvic mass Chronic use of opiate drugs therapeutic purposes Hx of small bowel obstruction Gastrostomy tube in place (HCC) Insomnia Past Surgical History Procedure Laterality Date Tubal ligation 2002 section 1998 Endoscopic sinus surgery 2009 deviated septum Laparoscopic cholecystectomy 2012 Dilation and curettage 2000 miscarriage Dilation and curettage 2001 miscarriage Laparoscopic knee surgery 09/06/13 Laparoscopic knee surgery 03/21/14 Liver resection 04/2012 Review of Systems: A 10 organ system ROS was performed and negative unless stated in above HPI. Home Medications: I have obtained and documented the prior to admission medication list and it is accurate. Prior to Admission Medications Prescriptions HYDROmorphone 1 mg/mL oral liquid Sig: Take by mouth every three hours as needed. Indications: unknown LACTOBACILLUS ACIDOPHILUS (PROBIOTIC ORAL) Sig: Take 1 capsule by mouth once daily. LORazepam 1 mg oral tablet Sig: Take 1.5 mg by mouth. MULTIVIT &MINERALS/FERROUS FUM (MULTI VITAMIN ORAL) Sig: Take 1 tablet by mouth once daily. docusate sodium (COLACE) 100 mg oral capsule Sig: Take 1 capsule by mouth two times daily. fentaNYL 100 mcg/hr transdermal patch Sig: Apply 1 patch to skin every seventy-two hours. Please remove old patch prior to placin g a new one. ibuprofen 600 mg oral tablet Sig: Take 1 tablet by mouth every six hours as needed. lidocaine 5 %(700 mg/patch) topical adhesive patch,medicated Sig: Apply 1 patch to skin once daily. Apply patch to most painful area; Patch may remain i n place for up to 12 hours in any 24-hour period. ondansetron ODT 4 mg oral tablet,disintegrating Sig: Dissolve 4 mg on tongue and swallow every twelve hours as needed. Indications: unknown home dose oxyCODONE, immediate release, 5 mg oral tablet Sig: Take 1 tablet by mouth every six hours as needed. polyethylene glycol (MIRALAX) 17 gram/dose oral powder Sig: Take 17 g by mouth once daily. Facility-Administered Medications: None Allergies I have reviewed and updated the allergy list. Allergies Allergen Reactions Sulfacetamide Sodium Hives Social History I have updated the Social Hx as appropriate. Social History Substance Use Topics Smoking status: Former Smoker Packs/day: 0.50 Years: 25.00 Types: Cigarettes Quit date: 02/14/2006 Smokeless tobacco: Never Used Alcohol use 0.5 oz/week 1 Glasses of wine per week Comment: 2-3 glasses of wine per month. Family History I have updated the Family Hx as appropriate. Family History Problem Relation Diabetes Father Coronary Artery Disease Father s/p CABG Cancer Other niece thyroid Liver cancer Neg Hx Gallbladder disease Neg Hx Physical Exam: Last 24 hour min/max Temp: 36.8 C (98.2 F) Temp Min: 36.7 C (98.1 F) Max: 37.2 C (99 F) Heart Rate: 86 Pulse Min: 67 Max: 106 Resp: 13 Resp Min: 10 Max: 28 BP: (!) 84/59 BP Min: 77/54 Max: 106/72 SpO2: 96 % SpO2 Min: 93 % Max: 100 % Body mass index is 23.55 kg/m. General: Middle aged, nontoxic appearing woman laying in bed in NAD with at bedsid e. HEENT: NCAT PERRLA, EOMI Neck: supple, no JVD, no LAD Chest: non-accessed portacath in left upper chest without overlying skin erythema, tenderne ss, purulence. CTAB, mild scant rales diffusely that clear with cough, no wheezes, rhonchi Cardio: RRR, no murmurs, gallops or rubs Abdomen: Gastrostomy tube in LUQ with mild leakage of gastric juices around site without e rythema, tenderness, purulence. Soft, NTND, NABS, no rebound or guarding Extremities: +2 pulses bilaterally, no edema, symmetrical, WWP. Neuro: AAOx3, CN grossly intact, afocal Skin: no rashes on exposed skin Psych: interactive, normal affect, future driven. Labs: CBC with diff last 72 hours (or 3 results) - Refreshable Recent Labs 12/23/17233212/24/171 WBC 17.23* 22.23* HB 9.7* 9.5* HCT 30.2* 29.1* PLT 51* 67* NEUTROPERC 87.0* 88.8* LYMPHPERC 1.7* 3.0* MONOPERC 0.9* 2.1* BASOPERC 0.0 0.2 EOSPERC 0.0* 0.0* Chemistries: Last 72 Hours (or 3 results): Recent Labs 12/23/17233212/23/17233712/24/17 0441 NA 144 -- 143 K 3.7 -- 4.3 CL 111* -- 112* BICARB 22 -- 21 BUN 16 -- 18 CR 1.34* -- 1.26* GLU 111* 127* 87 CA 7.4* -- 7.4* Liver Tests: Last 72 hours (or 3 results) Recent Labs 12/23/17 2333 12/24/17 0441 12/24/17 1547 AST 214* 170* 80* ALT 77* 72* 46 TBILI 0.9 0.9 0.8 AP 243* 232* 178* ALB 2.5* 2.2* 2.0* TP 6.1* 6.1* 5.2* Cultures: [facility], [place] Blood cultures x2 12/23: gram negative bacilli x 2 in aerobic and anaerobic bottles [place]: Blood cultures x 2 12/23: NGTD Blood cultures x 1 12/24 EKG 12/24: NSR with HR 75, nml UT, QTc 467, no ST or T wave changes, no Q waves. No axis de viation. Imaging: CXR 12/24: minimal bibasilar sugsegmental atelectasis. No focal lung consolidation. RUQ US 12/24: mildly heterogeneous parenchyma, no discrete focal lesion, gallbladder absent . No biliary dilatation, CBD measures 3 mm. Assessment and Plan: Aura Upton is a 57 y.o. woman with metastatic cholangiocarcinoma (dx 2013, on palliat jayjay chemotherapy gem/cisplatin), hx of [...] infection. + blood cultures from 12/23 at [facility]. Suspect source is from portacath given temporal [...] hospitalization warrants Pseudomonal coverage for now until speciation. - discontinue vancomycin - continue cefepime and metronidazole until speciation and sensitivities - f/u blood cultures here and [facility] - repeat blood culture x 1 in [...] port given ongoing chemotherapy planned. - NPO at midnight - discuss with surgery in AM for port removal - coordinate with outpt oncologist, Dr. Ragland, [...] mayelin, miralax PRN and Code: FULL CODE SDM: Surrogate Decision Maker Primary Surrogate Decision Maker Poncho Oquendo [phone] Dispo: IV abx and need for portacath removal prior to discharge. Likely 2-3 more days. Pt will be staffed with my attending, Dr. Marbin Espinoza, within 24 hours. Sasha Jarrett M.D. Internal Medicine PGY-3 Pager [phone] Associated attestation - Marbin Espinoza MD - 12/25/2017 7:15 PM PSTGeneral Medicine Atte nding Progress Note Author: Marbin Espinoza MD Hospital Day 2 PCP: Valeriy Bay MD I personally evaluated the patient, performed the ivey elements of the physical examination, and personally formulated the assessment and plan with the house staff. I have reviewed the written documentation and I agree with the findings, assessment, advice, orders and plan as they are documented with the above clarifications. Please see resident note for details. Assessment & Plan: Aura Upton is a 57 y.o. female with pmh sig for metastatic cholangiocarcinoma on pall iative chemotherapy c/b obstructive sbo requiring venting g tube, portacath placement who pr esented to OSH with gram negative bacteremia from portacath requiring transfer to [facility] for e valuation for portacath explant. Patient remains hemodynamically stable on metronidazole, c efepime and will await bacterial speciation at OSH prior to joint decision regarding need of portacath explant with guidance from ID consult. Will narrow antibiotics as possible. Shaan reciate ID assistance with determining length of antibiotic regimen. Patient has voiced pre ference for plan that returns her to palliative chemotherapy as soon as possible and will co ordinate with her outpatient oncologist Dr. Najera to determine when patient can restar t chemotherapy after discharge. Above problems discussed with the patient who understands and is agreeable with our plans. Marbin Espinoza MD Clinical Hospitalist Services [facility] Pager [phone] I have spent 70 minutes with the patient of which more than 40 minutes were spent counselin g including discussion of management of bacteremia, need for explant of portacath and answer ing questions regarding follow up care after discharge to home. Patients Hospital Problem List: Patients Hospital Problem List: Active Hospital Problems 1) *Bacteremia due to Gram-negative bacteria 2) JULY (acute kidney injury) (HCC) 3) Chronic use of opiate drugs therapeutic purposes 4) Hx of small bowel obstruction 5) Gastrostomy tube in place (HCC) 6) Insomnia Resolved Hospital Problems 7) Septic shock ([facility] HOSPITAL) 8) Sepsis ([facility]) Lia Pollock MD - 12/23/2017 7:38 PM PSTFormatting of this note might be different fr om the original. [facility] MEDICAL ICU - HISTORY & PHYSICAL Author: LIA POLLOCK MD Attending: Dagoberto Iniguez MD ID/CC: Aura Upton is a 57 y.o. woman w/ metastatic cholangiocarcinoma (on palliative chemotherapy with gemcitabine/cisplatin q3wk) admitted to the MICU from [place] for suspec ashley septic shock. HPI: Pt went to chemo on 12/23 and developed fever up to 103.1F, presyncopal symptoms, and hypote nsion to 73/50 after her port was accessed prior to chemo adminstration. Last chemo was 6 wk s ago and her port had not been accessed prior. She was sent to the ER in which was reported to have crackles in the left base and be concerned for LLL PNA. Reported WBC 1.7, ANC 1500. Was started on Vanc and Cefepime and transported to [facility] via plane. In route, BPs were stab le with MAPs >65. On arrival to MICU, BP stabilized at 93/62, HR 68, T 98.1. Of note, she was hospitalized month ago at [facility] for severe sepsis of unclea r etiology and received 14 days of antibiotics. Pt states she underwent several test without a clear source being found (do not currently have those records). She returned home on hosp ice after that hospitalization, but improved on her own and returned to receiving chemothera py. Denies recent nightsweats, chills, cough, chest pain, or SOB. Endorses developed sharp RUQ pain while in commute to [facility]. Denies N/V/D/C, hematochezia, dysuria. No rashes or new open lesions. Pre-MICU Course: Pre-transfer VS: 86/53, 103, 23, T 97.7, 98% RA - hgb: 7.1. WBC 1.7 (92.6% PMNs, 6.5% lymph), plt 61. - K 3.5, Bicarb 22, Cr 1.34 - AST 74, ALT 24, alKp 187. - CXR: patchy density in LLL, obscuring diaphgrahm - consistent with PNA or atelectasis. L subclav Port-a cath Tx: - 3L fluid - 1u PRBCs for hbg 7 - 2gm IV cefepime, 1gm IV Vanc ROS: No other ROS other than stated above Past Medical History: Diagnosis Date Adnexal mass Arthritis Cholangiocarcinoma (HCC) Chronic back pain greater than 3 months duration Depressive disorder Diverticulosis of colon Gallbladder carcinoma (HCC) Hemorrhoids Maintenance chemotherapy Patient Active Problem List Diagnosis Nasal septal defect Perforation of nasal septum Gallbladder cancer (HCC) Post-operative pain Pelvic mass Sepsis (HCC) # Gallbladder Carcinoma: -Diagnosed 2012. -04/26/2012: R0 Resection. -05/31/2012-09/03/2012 Chemotherapy: Xeloda/gemictabine x4 cycles. -10/04/2012: XRT with Xeloda -06/07/2014: relapse s/p complete resection. -07/29/2014-11/29/2014 Chemotherapy: Cisplatin/Gemcitabine -03/15/2016: Relapse -04/12/2016-08/09/2016 Chemotherapy: Cisplatin/Gemcitabine x6 cycles -02/25/2017-04/06/2017 Immunotherapy: Pembolizumab x4. -05/20/2017 Palliative Chemotherapy: Cisplatin/Gemcitabine Q3 weeks. Allergies Allergen Reactions Sulfacetamide Sodium Hives Prior to Admission Medications Prescriptions LACTOBACILLUS ACIDOPHILUS (PROBIOTIC ORAL) Sig: Take 1 capsule by mouth once daily. MULTIVIT &MINERALS/FERROUS FUM (MULTI VITAMIN ORAL) Sig: Take 1 tablet by mouth once daily. docusate sodium (COLACE) 100 mg oral capsule Sig: Take 1 capsule by mouth two times daily. ibuprofen 600 mg oral tablet Sig: Take 1 tablet by mouth every six hours as needed. lidocaine 5 %(700 mg/patch) topical adhesive patch,medicated Sig: Apply 1 patch to skin once daily. Apply patch to most painful area; Patch may remain i n place for up to 12 hours in any 24-hour period. oxyCODONE, immediate release, 5 mg oral tablet Sig: Take 1 tablet by mouth every six hours as needed. polyethylene glycol (MIRALAX) 17 gram/dose oral powder Sig: Take 17 g by mouth once daily. Facility-Administered Medications: None Past Surgical History: Procedure Laterality Date SECTION 1998 DILATION AND CURETTAGE 2000 DILATION AND CURETTAGE 2001 ENDOSCOPIC SINUS SURGERY 2008 LAPAROSCOPIC CHOLECYSTECTOMY 2012 laparoscopic knee surgery 09/06/13 laparoscopic knee surgery 03/21/14 LIVER RESECTION 04/2012 tubal ligation 2003 Family History Problem Relation Diabetes Father Coronary Artery Disease Father s/p CABG Cancer Other niece thyroid Social History Substance Use Topics Smoking status: Former Smoker Packs/day: 0.50 Years: 25.00 Types: Cigarettes Quit date: 02/14/2006 Smokeless tobacco: Never Used Alcohol use 0.5 oz/week 1 Glasses of wine per week Comment: 2-3 glasses of wine per month. Social History Social History Narrative Pt has SO. Lives in [facility]. 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 Likes to camp, entertain. Vital Signs: Cuff BP (!) 83/63 (12/24/17422) | BP Min: 77/54 Max: 98/72 Cuff MAP 71 mmHg (12/24/17422) | BP Mean Min: 63 mmHg Max: 83 mmHg Art Line BP | No Data Recorded Art Line MAP | No Data Recorded HR 79 (12/24/17422) | Pulse Min: 67 Max: 100 | Cardiac Rhythm: (P) Normal Sinus Rhythm (12/24/17422) Temp 36.7 C (98.1 F) (12/23/172321) | Temp Min: 36.7 C (98.1 F) Max: 36.7 C (9 8.1 F) RR 12 (12/24/17422) | Resp Min: 10 Max: 23 SpO2 96 % (12/24/17422) | SpO2 Min: 93 % Max: 97 % O2 Device None (room air) (12/24/17 0300) | Cam/RASS Most Recent Value Overall CAM-ICU Negative RASS Scale -1 CPOT No intake or output data in the 24 hours ending 12/23/17 0700 No intake or output data sinc e the admission date ending 12/23/171938 BMI: 23.6 Weights 60.3 kg (132 lb 15 oz) (12/23/172321) 75.7 kg (166 lb 12.8 oz) (07/23/14 1607) Admit Wt: 60.3 kg (132 lb 15 oz) Physical Exam: Gen: middle-age woman in NAD HEENT: NC/At, PERRLA, nonicteric sclera, moist mucous membranes CV: RRR, no murmurs, rubs, gallops. L port cath c/d without surrounding erythema. Lungs: CTA b/l, no crackles, wheezes or rhonchi Abd: TTP in RUQ, RLQ. No guarding or rebound. Normoactive bowel sounds. Negative murphys si gn. No splenomegaly. Ext: 2+ pulses in dorsalis pedis, no pedal edema Neuro: Ox3, CN 2-12 grossly intact. mentating well Laboratories: Recent Labs 12/23/172332 WBC 17.23* HB 9.7* HCT 30.2* MCV 98.4 PLT 51* NEUTROPHILCO 14.99* LYMPHSABS 0.29* MONOCYTECO 0.16 EOSCO 0.00 BASOPHILCO 0.00 IMGRANABS 1.79* No results for input(s): INRPT, APTT, FIBRINOGEN in the last 720 hours. Recent Labs 12/23/173 NA 144 K 3.7 CL 111* BICARB 22 BUN 16 CR 1.34* CA 7.4* ANIONGAP 11 Recent Labs 12/23/17 2333 12/23/17 2338 GLU 111* 127* Recent Labs 12/23/17 2333 AST 214* ALT 77* TBILI 0.9 AP 243* ALB 2.5* TP 6.1* Recent Labs 12/23/17 2333 LACTICACID 2.8 Lab Orders - In Process (Through next 24h) None Microbiology: 12/23 Blood cx: pending Imaging: CXR: pending RUQ: ordered EKG/Echocardiogram: *Rate 75, pr 160, Qtc 467. NSR Current Facility-Administered Medications Medication Dose Route Frequency Last Rate Current Facility-Administered Medications Medication Dose Route Frequency Last Rate ceFEPIme (MAXIPIME) injection 2 g 2 g intravenous Q12H fentaNYL (DURAGESIC) 100 mcg/hr 1 patch 1 patch transdermal Q72H lactated Ringers IV 1,000 mL intravenous ONCE metroNIDAZOLE (FLAGYL) IV 500 mg 500 mg intravenous Q8H polyethylene glycol (MIRALAX) packet 17 g 17 [...] metastatic cholangiocarcinoma (on palliative chemoth erapy with gemcitabine/cisplatin q3wk) admitted to the MICU from [place] for suspected sep tic shock. Neurological # Pain - continue home fentanyl 100mcg/hr patch (replaced on 12/24) - IV dilaudid 0.2 PRN q2hrs - Naloxone PRN - APAP 325-650mg q4hr Cardiovascular # Hypotension BP 80/60 with MAPs >65. Pt with good UOP and mentating well. Suspected pt Bp runs lower and can tolerate as long as MAP >65. - can consider additional fluid resuscitation Respiratory No issues GI / Nutrition #RUQ abdominal pain # Elevated LFTs New 1 day onset of sharp RUQ pain associated with leukocytosis and 1 recorded temp at OSH. With known metastatic cholangiocarcinoma, concerned for intra-abdominal source. AST and ALT elevated mildly with elevated alkP further supoorting concern for biliary source. - f/u RUQ ultrasound - septic shock management explained below. / Renal # JULY? Cr 1.26, improved from 1.36 with 4L fluid resuscitation. Baseline likely ~ 0.9. - continue to monitor after fluid resuscitation - no urine studies at this time. Infectious Disease # Septic shock Presented with HD stable after receiving 3L [...] LR for Maps 67. - f/u blood cx - f/u CXR - f/u RUQ ultrasound for biliary dilation/obstruction - Consider CT abdomen for potential abdominal source if RUQ ultrasound inconclusive. - If fevers again, consider culturing the cath and determine if source Hematology / Oncology # Metastatic cholangiocarcinoma Receives gemcitabine/cisplatin q 3wks for palliation. Has not had chemo in over 6 wks dur t o previous hospitalizations for sepsis of unknown origin. # Normocytic anemia Hgb 7.1 at OSH. Responded well to 1U pRBc as Hgb 9.5. Likely related to chemotherapy immuno suppression. - Transfuse Hgb <7. # Neutropenia?? # Leukocytosis OSH WBC reported as 1.7 with 1500. WBC here is 17.3 > 22.2 in the setting o septic shock fr om unknown source. Do not have recent WBC levels, latest WBC as of 2017 show baseline 3.8 bu t unclear if this is during chemotherapy. - monitor CBC with diff - treating sepsis shock as listed above. #Thrombycytopenia Plts 67 up from 61 at OSH. - no concern for active bleed. Transfuse for plts <10. Endocrine No issues Present on admission Septic shock Consultants: Feeding: PO diet Analgesia: Hydromorphone and Fentanyl Sedation: None (RASS Goal 0 (alert and calm)) Thromboprophylaxis: SCDs (Pharmacologic ppx contraindicated) Head of Bed: Ad mary Ulcer Prophylaxis: Not indicated Glycemic control: BS controlled < 180, insulin not indicated Mobility Goal: Ambulate Lines/Tubes/Drains/Airways: L port . 3 PIV Code Status Code Status Full Code Surrogate Decision Maker Documentation: This patient will be staffed within 24 hours with , attending physician. Lia Pollock MD Internal Medicine, PGY-1 [id number] Template created by DERREK 2017 documented in this en counter Procedure Notes Micah Flowers MD - 12/27/2017 9:39 AM PSTAssociated Order(s): PROCEDURE NOTEEGS IINPATI ENT PROCEDURE NOTE SUBJECTIVE: Aura Upton is a 57 y.o. female who presents for lesion removal. We have already discu ssed this procedure at a recent visit, including option of not performing surgery, technique of surgery and potential for scarring. OBJECTIVE: BP 127/67 | Pulse 75 | Temp 36.9 C (98.4 F) | RR 16 | Ht 1.6 m (5' 3") | Wt 60.7 kg (13 3 lb 14.4 oz) | SpO2 100% | BMI 23.72 kg/(m^2) Patient appears well. Vitals are normal. Skin: C/D/I- non-erythematous Mentating normally ASSESSMENT: foreign body- INFECTED PORT At 9:40AM (time), prior to the beginning of the procedure, the team paused to verify the pa tient s identity, the procedure to be performed (in accordance with the consent,) and the correct side/site. The patient was positioned appropriately. All relevant images and results were properly labeled and displayed. We addressed antibiotic prophylaxis and fluids for irr igation as applicable to this patient. Any safety precautions were addressed. The following team members were present during the team pause: MARISEL REARDON MD; BROOKE RODRIGUEZ MD; MICAH FLOWERS MD PLAN: After informed consent was obtained, using CHLORHEXIDINE for cleansing and 1% Lidocaine wit h epinephrine for anesthetic, with sterile technique, removal of the port was performed. An incision was made along prior well healed scar. The catheter tubing was identified and remov ed from the patient during valsalva. The port was cut free and removed. No purulence was karlo ntified. The port site was irrigated. Deep dermal sutures were placed. Nugauze dressing is applied, and wound care instructions provided below. Be alert for any signs of cutaneous in fection. The procedure was well tolerated without complications. Follow up: the specimen is labeled and sent to pathology for evaluation. SPECIMEN: CATHETER TIP FOR CULTURE. DRESSING INSTRUCTIONS: remove packing tomorrow. Dry dressing changes as needed. OK to showe r. documented in this en counter Consult Notes Brooke Rodriguez MD - 12/27/2017 12:23 AM PSTFormatting of this note might be different fr om the original. DEPARTMENT OF SURGERY Emergency General Surgery History and Physical Patient: Aura Upton ([id number]) Date: 12/26/2017 Chief Complaint: Concern for infected port History of Present Illness: Aura Upton is a(n) 57 y.o. female with metastatic cholan giocarcinoma (underwent initial resection in 2012) now on palliative chemotherapy (gemcitabi ne/cisplatin, gets chemo in [place], last chemo 6 weeks ago) with indwelling port. Since [facility], has been admitted twice with sepsis and Klebsiella bacteremia without clear source . Most recently was hospitalized at [facility] where blood cultures on 12/23 were positive again for Klebsiella, both sample from port as well as peripheral stick. Also reportedly du ring that hospitalization was having intermittent rigors and fevers when port was accessed. ID is following now and has recommended port removal as likely source of recurrent bacteremi a given no other identified source. Of note, she also has a malignant SBO and has undergone palliative venting gastrostomy which has resulted in significant improvement in her symptoms . She has been on TPN for nutrition through her port, but has not been receiving this for e past month and has been able to support her nutrition with PO intake alone. States that he r obstruction has improved significantly with ongoing chemotherapy. Still vents her gastrost kp daily, but output is minimal and can tolerate clamping for up to 16 hours without issues . Port initially placed several years ago at outside hospital. Currently, Ms. Upton state s that she has been feeling much better without fevers, chills, rigors, night sweats, or lucy n associated with her port site. She has no active complaints and is mostly interested in diaz ving her port removed as soon as possible so that she can get back to chemotherapy. Functional status: independent Past Histories Past Surgical History Procedure Laterality Date Tubal ligation 2002 section 1998 Endoscopic sinus surgery 2009 deviated septum Laparoscopic cholecystectomy 2012 Dilation and curettage 2000 miscarriage Dilation and curettage 2001 miscarriage Laparoscopic knee surgery 09/06/13 Laparoscopic knee surgery 03/21/14 Liver resection 04/2012 Gastrostomy feeding tube placement Past Medical History: Diagnosis Date Adnexal mass Arthritis Cholangiocarcinoma (HCC) Chronic back pain greater than 3 months duration Depressive disorder Diverticulosis of colon Gallbladder carcinoma (HCC) Hemorrhoids Maintenance chemotherapy Prior to Admission Medications Prescriptions HYDROmorphone 1 mg/mL oral liquid Sig: Take by mouth every three hours as needed. Indications: unknown LACTOBACILLUS ACIDOPHILUS (PROBIOTIC ORAL) Sig: Take 1 capsule by mouth once daily. LORazepam 1 mg oral tablet Sig: Take 1.5 mg by mouth. MULTIVIT &MINERALS/FERROUS FUM (MULTI VITAMIN ORAL) Sig: Take 1 tablet by mouth once daily. docusate sodium (COLACE) 100 mg oral capsule Sig: Take 1 capsule by mouth two times daily. fentaNYL 100 mcg/hr transdermal patch Sig: Apply 1 patch to skin every seventy-two hours. Please remove old patch prior to placin g a new one. ibuprofen 600 mg oral tablet Sig: Take 1 tablet by mouth every six hours as needed. lidocaine 5 %(700 mg/patch) topical adhesive patch,medicated Sig: Apply 1 patch to skin once daily. Apply patch to most painful area; Patch may remain i n place for up to 12 hours in any 24-hour period. ondansetron ODT 4 mg oral tablet,disintegrating Sig: Dissolve 4 mg on tongue and swallow every twelve hours as needed. Indications: unknown home dose oxyCODONE, immediate release, 5 mg oral tablet Sig: Take 1 tablet by mouth every six hours as needed. polyethylene glycol (MIRALAX) 17 gram/dose oral powder Sig: Take 17 g by mouth once daily. Facility-Administered Medications: None Allergies Allergen Reactions Sulfacetamide Sodium Hives Family History Problem Relation Diabetes Father Coronary Artery Disease Father s/p CABG Cancer Other niece thyroid Liver cancer Neg Hx Gallbladder disease Neg Hx Social History Social History Marital status: Single Spouse name: N/A Number of children: N/A Years of education: N/A Occupational History Not on file. Social History Main Topics Smoking status: Former Smoker Packs/day: 0.50 Years: 25.00 Types: Cigarettes Quit date: 02/14/2006 Smokeless tobacco: Never Used Alcohol use 0.5 oz/week 1 Glasses of wine per week Comment: 2-3 glasses of wine per month. Drug use: No Sexual activity: Yes Partners: Male Other Topics Concern Not on file Social History Narrative Pt is to [place] for many years. Has a 19 yo son. Lives in [facility]. 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 Wants to get back to [employer] soon. Likes to camp, entertain. Review of Systems: 10-point ROS performed, negative except as noted in HPI. Exam BP 110/65 | Pulse 77 | Temp 36.7 C (98.1 F) | RR 16 | Ht 1.6 m (5' 3") | Wt 60.8 kg (13 4 lb 0.6 oz) | SpO2 97% | BMI 23.74 kg/(m^2) General: NAD, comfortable, thin but well-appearing HEENT: MMM, no scleral icterus Resp: unlabored breathing on room air Chest: L chest wall with subcutaneous port in place, no overlying erythema or induration, i ncision well-healed CV: RRR Abd: soft, non-distended, non-tender : No López Extremities: WWP, no edema Neuro: non-focal Mental Status: alert, oriented Data Recent Labs 12/24/17 0441 12/25/17 0718 12/26/17 0731 12/26/17 1012 12/26/17 1123 NA 143 -- 142 -- 141 -- -- K 4.3 -- 4.4 -- 4.1 -- -- CL 112* -- 112* -- 112* -- -- BICARB 21 -- 24 -- 21 -- -- BUN 18 -- 25* -- 28* -- -- CR 1.26* -- 1.26* -- 1.25* -- -- GLU 87 < > 95 < > 74 61 108* CA 7.4* -- 7.2* -- 8.0* -- -- PO4 -- -- -- -- 2.3* -- -- < > = values in this interval not displayed. Recent Labs 12/24/17 0441 12/24/17 1547 12/25/17 0718 12/26/17 0731 AST 170* 80* 50* -- ALT 72* 46 38 -- TBILI 0.9 0.8 0.9 -- AP 232* 178* 176* -- ALB 2.2* 2.0* 2.1* 2.3* TP 6.1* 5.2* 5.7* -- Recent Labs 12/23/17 2333 12/24/17 0441 12/25/17 0718 WBC 17.23* 22.23* 20.67* HB 9.7* 9.5* 8.1* HCT 30.2* 29.1* 25.2* PLT 51* 67* 43* NEUTROPERC 87.0* 88.8* 76.5* LYMPHPERC 1.7* 3.0* 1.7* MONOPERC 0.9* 2.1* 3.5 BASOPERC 0.0 0.2 0.0 EOSPERC 0.0* 0.0* 0.0* I have reviewed lab data significant for leukocytosis, INR 1.3. Imaging reviewed. Recent RUQ US with no biliary dilation. Assessment and Plan: Aura Upton is a 57 y.o. female with metastatic cholangiocarcinoma on palliative chemo therapy, now with recurrent Klebsiella bacteremia and concern for infection of her indwellin g port. Indicated for port removal. Is amenable to bedside port removal after PARQ session a nd explanation of procedure. - No need to keep make NPO - Will plan on port removal at bedside today with local anesthetic - Remainder of care per primary team Consent obtained. Risks including bleeding, infection, air embolus, damage to nearby struc tures, need for additional procedures were discussed. The above findings and plan were discussed with Dr. Flowers, who agrees. Brooke Rodriguez MD General Surgery, PGY-3 Pager [phone] Associated attestation - Micah Flowers MD - 12/28/2017 5:43 PM PST ATTENDING NOTE A resident assisted with documenting this service. I saw the patient and reviewed and verif ied all information documented by the resident, and made modifications to such information, when appropriate. Micah Flowers MD, MCR, FACS MICAH FLOWERS MD [facility] [address]TH FLOOR [address] Mailcode: [address] [phone] Ashley Snow DO - 12/26/2017 6:41 PM PSTFormatting of this note might be different fro m the original. INPATIENT INFECTIOUS DISEASE PROGRESS NOTE ID TEAM: Team A ID Attending Physician: Cathy Author: Ashley Snow DO Date of Admission: 12/23/2017 Hospital Day: 3 Interval Events/Subjective: -no acute events. Received speciation and susceptibility for blood culture done at [facility]. Patient says that she had a port placed in 2014 and that is not been exchanged or remov ed since. She was hospitalized in October for bacteremia and per the primary team she also grew klebsiella at that time with the same susceptibility pattern. She would like to resume chemo as soon as possible. Had also been getting TPN through her port. -afebrile Physical exam: BP 110/65 | Pulse 77 | Temp 36.7 C (98.1 F) | RR 16 | Ht 1.6 m (5' 3") | Wt 60.8 kg (13 4 lb 0.6 oz) | SpO2 97% | BMI 23.74 kg/(m^2) Intake/Output Summary (Last 24 hours) at 12/26/17 1841 Last data filed at 12/26/17 1700 Gross per 24 hour Intake 270 ml Output 2350 ml Net -2080 ml General: NAD, family at the bedside, plesant Eyes: No scleral icterus, no conjunctival injection ENT: MMM, posterior pharynx clear Respiratory: Normal respiratory effort; clear to auscultation bilaterally; no wheezes, no c rackles. Cardiovascular: Regular Rhythm, normal rate; no murmurs; peripheral pulses are symmetric. GI: Soft,nontender, non-distended; normal bowel sounds. Extremities: Full ROM, no edema Skin: left chest port without erythema or drainage Neuro: Alert, oriented x 3, no focal neurological deficits Lines: port Laboratory Data: Recent Labs 12/23/17 2333 12/24/17 0441 12/25/17 0718 WBC 17.23* 22.23* 20.67* RBC 3.07* 3.02* 2.52* HB 9.7* 9.5* 8.1* HCT 30.2* 29.1* 25.2* PLT 51* 67* 43* NEUTROPERC 87.0* 88.8* 76.5* LYMPHPERC 1.7* 3.0* 1.7* MONOPERC 0.9* 2.1* 3.5 BASOPERC 0.0 0.2 0.0 EOSPERC 0.0* 0.0* 0.0* Recent Labs 12/24/17 0441 12/25/17 0718 12/26/17 0731 12/26/17 1012 12/26/17 1123 NA 143 -- 142 -- 141 -- -- K 4.3 -- 4.4 -- 4.1 -- -- CL 112* -- 112* -- 112* -- -- BICARB 21 -- 24 -- 21 -- -- BUN 18 -- 25* -- 28* -- -- CR 1.26* -- 1.26* -- 1.25* -- -- GLU 87 < > 95 < > 74 61 108* CA 7.4* -- 7.2* -- 8.0* -- -- < > = values in this interval not displayed. Culture data: 12/23 OSH BC x 2 (peripheral and port) GNR; cx Klebsiella pneumonia (R: ampicillin; s: cefaz gayathri, ceftriaxone, meropenem, ciprofloxacin, tmp/smx) Imagin/10 cxr: Minimal bibasilar subsegmental atelectasis. No focal lung consolidation. 12/24 Vascular US: Patent portal, splenic, superior mesenteric and hepatic veins. No eviden ce of thrombus. 12/24 US abd: No evidence of biliary ductal dilation. Antimicrobials: Cefepime 12/24-C [facility] 12/24-12/25 Problem list: Klebsiella bacteremia Left chest port Metastatic cholangiocarcinoma on palliative chemo Obstructive SBO s/p venting gastrostomy Hydronephrosis s/p left ureteral stent Assessment: 57 y.o. female with a history of metastatic cholangiocarcinoma on palliative chemotherapy c /b obstructive SBO s/p venting gastrostomy and hydronephrosis s/p left ureteral stent requir ing frequent stent exchanges, and an episode of sepsis in Oct 2017 who presented to OSH on 12/23 with a fever after her portacath had been accessed, subsequently found to have gram neg ative trip bacteremia which has speciated to a pansensitive K. Pneumoniae. Blood cultures wer e positive both from her port and peripheral culture. She was hospitalized in October for sepsis likely 2/2 K. pneumoniae bacteremia. Since she has had 2 episodes of bacteremia we ar e concerned that the port could be colonized and the source of her bacteremia. Her port may have become colonized and infected from her episode of bacteremia in on 11/07/17 (confirmed w [facility] lab). At this point we would favor removing the port as "source control" fol lowed by 7 days of targeted antibiotic therapy with oral ciprofloxacin (Kendy et al. JENNIFER. 2018; 66:172-177) Recommendations: 1. Consult surgery for removal of port 2. Stop cefepime 3. Start ciprofloxacin 750 mg po q 12 hours for 7 days past port removal. Avoid administrat ion with divalent cations which can decrease bioavailability 4. Does not need ID follow. Inpatient ID will sign off. Call with questions or concerns. Recommendations were communicated directly to the primary team. This patient was staffed [facility] Dr. Morgan, who agrees with the above assessment and plan unless otherwise documented. Ashley Snow DO Infectious Disease Fellow Pager: [phone] Associated attestation - Micah Morgan MD - 12/26/2017 8:38 PM PSTINFECTIOUS DISEASES TE AM A PROGRESS NOTE I saw & personally examined Aura Upton today, discussed thecase as well as reviewed a ll aspects of ID management with Dr. Snow. I agree with the assessment & recommendations as outlined in the note today. Please call with any questions. Micah Morgan MD, [facility] Cash Register Mechanic Infectious Diseases #[id number] Date of service : 12/26/2017 ID service General ID - [id number] Debra Mitchell MD - 12/25/2017 5:04 PM PSTAssociated Order(s): IP CONSULT TO INFECTIOU S DISEASES Aura Upton [id number] Rm/Bed:52/01 INPATIENT INFECTIOUS DISEASES INITIAL CONSULT NOTE - TEAM A Author: Debra Mitchell MD Referring Attending Physician: Marbin Espinoza MD ID Consult Attending Physician: Micah Morgan MD Reason for Consult: GNR bacteremia HPI: Aura Upton is a 57 y.o. F with metastatic cholangiocarcinoma on palliative chem o (gemcitabine/carboplatin), hx of SBO s/p venting gastrostomy tube, L sided hydronephrosis s/p ureteral stent placement who is transferred from [facility] for management of GNB bacteremia. Pt reports being in her usual state of health until 12/23 when she presented to her infusion center for scheduled chemo infusion. Shortly after port-a-cath was accessed she developed fever and rigors. Noted to be hypotensive on arrival to ED, received volume re suscitation and was airlifted to [facility] MICU. Blood cultures here are NGTD. Pt reports resolut ion of rigors since transfer. She has been afebrile here. Denies any prior issues with port- a-cath. No pain at cath site. Last accessed about a month ago when hospitalized at [facility] in [place]. Reports two hospitalizations at [facility] in Oct/Nov (reports last discharge was ~ 11/18) with fevers of unclear etiology. Reports her L ureteral stent was exchanged during on e of those hospitalizations but no manipulation since. She was discharged on hospice but sta bill she felt better after discharge with resolution of systemic symptoms. She was to resume chemo on 12/23. She denies chest pain, headache, cough, abd pain, n/v/d, flank pain or dysuri a. ROS: A 12-point ROS was performed and negative except as detailed above. Immunization History: There is no immunization history for the selected administration types on file for this pat ient. Past Medical History: Past Medical History: Diagnosis Date Adnexal mass Arthritis Cholangiocarcinoma (HCC) Chronic back pain greater than 3 months duration Depressive disorder Diverticulosis of colon Gallbladder carcinoma (HCC) Hemorrhoids Maintenance chemotherapy Past Surgical History: Past Surgical History Procedure Laterality Date Tubal ligation 2002 section 1998 Endoscopic sinus surgery 2009 deviated septum Laparoscopic cholecystectomy 2012 Dilation and curettage 2000 miscarriage Dilation and curettage 2001 miscarriage Laparoscopic knee surgery 09/06/13 Laparoscopic knee surgery 03/21/14 Liver resection 04/2012 Gastrostomy feeding tube placement Social History Social History Marital status: Single Spouse name: N/A Number of children: N/A Years of education: N/A Occupational History Not on file. Social History Main Topics Smoking status: Former Smoker Packs/day: 0.50 Years: 25.00 Types: Cigarettes Quit date: 02/14/2006 Smokeless tobacco: Never Used Alcohol use 0.5 oz/week 1 Glasses of wine per week Comment: 2-3 glasses of wine per month. Drug use: No Sexual activity: Yes Partners: Male Other Topics Concern Not on file Social History Narrative Pt is to [place] for many years. Has a 19 yo son. Lives in [place]. 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 Wants to get back to [employer] soon. Likes to camp, entertain. Family history: Family History Problem Relation Diabetes Father Coronary Artery Disease Father s/p CABG Cancer Other niece thyroid Liver cancer Neg Hx Gallbladder disease Neg Hx Allergies: Allergies Allergen Reactions Sulfacetamide Sodium Hives Medications Prior To Admission Prescriptions prior to admission Medication Sig Dispense Refill docusate sodium (COLACE) 100 mg oral capsule Take 1 capsule by mouth two times daily. 6 0 capsule 2 [START ON 12/26/2017] fentaNYL 100 mcg/hr transdermal patch Apply 1 patch to skin every seventy-two hours. Please remove old patch prior to placing a new one. HYDROmorphone 1 mg/mL oral liquid Take by mouth every three hours as needed. Indication s: unknown ibuprofen 600 mg oral tablet Take 1 tablet by mouth every six hours as needed. 80 table t 2 LACTOBACILLUS ACIDOPHILUS (PROBIOTIC ORAL) Take 1 capsule by mouth once daily. lidocaine 5 %(700 mg/patch) topical adhesive patch,medicated Apply 1 patch to skin once daily. Apply patch to most painful area; Patch may remain in place for up to 12 hours in an y 24-hour period. 10 patch 1 LORazepam 1 mg oral tablet Take 1.5 mg by mouth. 0 MULTIVIT &MINERALS/FERROUS FUM (MULTI VITAMIN ORAL) Take 1 tablet by mouth once daily. ondansetron ODT 4 mg oral tablet,disintegrating Dissolve 4 mg on tongue and swallow miguel ángel ry twelve hours as needed. Indications: unknown home dose oxyCODONE, immediate release, 5 mg oral tablet Take 1 tablet by mouth every six hours a s needed. 30 tablet 0 polyethylene glycol (MIRALAX) 17 gram/dose oral powder Take 17 g by mouth once daily. 1 19 g 3 Current Medications (Antimicrobials in Bold) Current Facility-Administered Medications Medication Dose Route Frequency Last Rate ceFEPIme (MAXIPIME) injection 2 g 2 g intravenous Q12H fentaNYL (DURAGESIC) 100 mcg/hr 1 patch 1 patch transdermal Q72H LORazepam (ATIVAN) tablet 1.5 mg 1.5 mg oral HS metroNIDAZOLE (FLAGYL) IV 500 mg 500 mg intravenous Q8H Stopped (12/25/17 1442) polyethylene glycol (MIRALAX) packet 17 g 17 g oral DAILY senna-docusate (SENOKOT S) 8.6-50 mg 2 tablet 2 tablet oral BID Physical exam: BP 110/71 | Pulse 79 | Temp 36.6 C (97.9 F) | RR 18 | Ht 1.6 m (5' 3") | Wt 60.3 kg (13 2 lb 15 oz) | SpO2 100% | BMI 23.55 kg/(m^2) 24 Hour Vital Min/Max: Pulse Min: 79 Max: 95 Temp Min: 36.4 C (97.5 F) Max: 36.8 C (98.2 F) Resp Min: 18 Max: 18 SpO2 Min: 95 % Max: 100 % Intake/Output Summary (Last 24 hours) at 12/25/17 1905 Last data filed at 12/25/17 1700 Gross per 24 hour Intake 625 ml Output 1520 ml Net -895 ml General Appearance: comfortable, NAD HEENT: EOMI, no conjunctival petechiae, no scleral icterus OP: Clear mucus membranes, good dentition Neck: supple, no neck masses noted Nodes: no palpable lymphadenopathy of cervical, submandibular, supraclavicular chains Respiratory: clear bilaterally, no wheezes, crackles, nl work of breathing Cardiovascular: RRR, no m/r/g Gastrointestinal: soft, non-tender, non-distended Back: no spine or CVA tenderness Skin: no ecchymoses, rashes Extremities: Warm, well perfused, no dependent edema Neurologic: grossly non-focal Lines/drains: Laboratory Data: Recent Labs 12/23/17233212/24/1744012/25/1718 WBC 17.23* 22.23* 20.67* RBC 3.07* 3.02* 2.52* HB 9.7* 9.5* 8.1* HCT 30.2* 29.1* 25.2* PLT 51* 67* 43* NEUTROPERC 87.0* 88.8* 76.5* LYMPHPERC 1.7* 3.0* 1.7* MONOPERC 0.9* 2.1* 3.5 BASOPERC 0.0 0.2 0.0 EOSPERC 0.0* 0.0* 0.0* Recent Labs 12/23/17233212/24/1744012/25/17 0649 12/25/17 0718 12/25/17 1341 NA 144 -- 143 -- -- 142 -- K 3.7 -- 4.3 -- -- 4.4 -- CL 111* -- 112* -- -- 112* -- BICARB 22 -- 21 -- -- 24 -- BUN 16 -- 18 -- -- 25* -- CR 1.34* -- 1.26* -- -- 1.26* -- GLU 111* < > 87 < > 102* 95 80 CA 7.4* -- 7.4* -- -- 7.2* -- < > = values in this interval not displayed. Recent Labs 12/24/1744012/24/17 1547 12/25/17 0718 AST 170* 80* 50* ALT 72* 46 38 AP 232* 178* 176* TBILI 0.9 0.8 0.9 TP 6.1* 5.2* 5.7* ALB 2.2* 2.0* 2.1* Lab Results Lab Test Name Results Date/Time APTT 30.3 05/28/14 No results found for: ESR No results found for: CRP Recent Antimicrobials: Vancomycin 12/24 Cefepime 12/23- Metronidazole 12/23- Micro data: 12/23 BCx (OSH) - GNR 12/23 BCx - NGTD 12/24 BCx - NGTD 12/24 urine screen - negative Imagin/10 CXR - Minimal bibasilar subsegmental atelectasis. No focal lung consolidation. 12/24 Cee-hepatic duplex - Patent portal, splenic, superior mesenteric and hepatic veins. No evidence of thrombus. 12/24 RUQ US - No evidence of biliary ductal dilation. Procedures: None Problems: 1. GNR bacteremia 2. Port-a-cath 3. Metastatic cholangiocarcinoma Assessment: 57 y.o. female with metastatic cholangiocarcinoma on palliative gemcitabine/carboplatin, hx of SBO s/p venting gastrostomy tube, L sided hydronephrosis s/p ureteral stent placement wh o is transferred from [facility] with fever, rigors and hypotension and found to h ave GNR bacteremia. Symptoms developed shortly after port was accessed at infusion clinic, w hich is suspicious for a line infection. Mildly elevated transaminases but normal bili and n o ductal dilation on ultrasound makes biliary source less likely. Note presence of ureteral stent but urinalysis is bland and urine cx negative. Repeat blood cultures after arrival her e remain without growth. Decision to remove the port depends in part on the organism involve d. Favor waiting for speciation before deciding how to proceed with the port. Can add line l ock therapy if decision is to salvage the line. Recommendations: 1. Continue cefepime 2g IV [id number], which is appropriate dose adjustment for crcl 2. Discontinue metronidazole 3. Will follow up outside blood cultures Recommendations were communicated directly to the primary team. This patient was staffed [facility] Dr. Morgan, who agrees with the above assessment and plan unless otherwise documented. Thank you for the consult, we will follow along with you. Debra Mitchell MD Infectious Disease Fellow Pager: [phone] Associated attestation - Micah Morgan MD - 12/26/2017 9:49 AM PSTINFECTIOUS DISEASES AT [facility]IT[facility] CONSULT [facility] - TEAM A ADMIT DATE: 12/23/2017 11:11 PM TODAY'S DATE: 12/26/2017 (HOSPITAL DAY 3) I personally interviewed the patient, performed the ivey elements of the physical examinatio n, and agree with the history, exam, assessment and plan as per Dr. Mitchell. I have note d any additions or exceptions below. Aura Upton is a 57 y.o. with a hx of metastatic cholangiocarcinoma on gemcitabine and carboplatin complicated by SBO status post venting gastrostomy tube, left hydronephrosis st atus post ureteral stent now admitted with gram-negative trip bacteremia just following acces s of her Port-A-Cath. Given the sequence of events it is likely that her Port-A-Cath was a source of this infection. We await speciation to determine whether this needs to be removed or we can treat through. See Dr. Mitchell's note for additional details. Micah Morgan MD, [facility] Cash Register Mechanic Infectious Diseases Pager: [phone] Date of service : 12/25/17 ID service General ID - [id number] Cate Valdovinos, PharmD - 12/24/2017 7:12 AM PSTFormatting of this note might be different fr om the original. Pharmacist Managed Vancomycin: Initial Note Indication: sepsis Goal trough: ~15 mcg/mL Estimated Creatinine Clearance: 41.2 mL/min (A) (based on SCr of 1.26 mg/dL (H)). Urine output: no trend established yet, robust output thus far since arrival (7 mL/kg/hour) Renal function: improving Assessment/Plan: - Received 1,000 mg IV vancomycin on 12/23 @ 17:30 at outside hospital. Random ~18 hour leve l was 12.2 mcg/mL, so patient is clearing, but will expect accumulation with subsequent dosi ng. - Start vancomycin 1000 mg (16.5 mg/kg) IV every 24 hours - Pharmacist will order trough level prior to fourth dose. Please page clinical pharmacist ([phone]) or call central inpatient pharmacy ([phone]) with qu estions. Actual body weight: Weight: 60.3 kg (132 lb 15 oz) (12/23/17 4392) Labs: CREATININE PLASMA (LAB) (mg/dL) Date Value 12/24/2017 1.26 (H) 12/23/2017 1.34 (H) WHITE CELL COUNT (K/cu mm) Date Value 12/24/2017 22.23 (H) 12/23/2017 17.23 (H) Pertinent cultures/sensitivities: - in process Thank you for the consult, Cate Valdovinos PharmD documented in this e ncounter Miscellaneous Notes Handoff - Rosalia Iyer RN - 12/27/2017 3:08 AM PSTNursing Handoff Patient Daily Goal: wants to have port switched out (12/26/17 0854) Patient Specific Preferences: Patient goes by "Aura" (12/24/17 0800) [facility] IP NURSE HANDOFF: [facility] hospital course events: Aura Upton is a 57 y.o. woman with metastatic cholangiocarcinoma (dx 2012, on palliative chemotherapy gem/cisplatin, portacath placed 2014), hx of SBO with gastrostomy tube (for venting), anxiety/insomnia, and recent a dmission for sepsis of unclear etiology who was admitted to the MICU for septic shock found to have gram negative bacteremia and concern for infected portacath COMFORT/ANXIETY/BEHAVIOR Patient/Family Target: Manage pain. Progress to Target: Improving As evidenced by: Aura c/o generalized pain. She has been asking for oxycodone when she needs it, also has a Fentanyl patch to AMANDA shoulder. Was able to rest comfortably over night. NURSING ASSESSMENT & RECOMMENDATIONS FORWARD Nursing Assessment of Patient Stability Risk: Moderately stable Recommendations Forward: - Reg diet, ACHS - G tube in place for pt to self vent (bag attached) - Up ad mary - Not NPO at midnight, per MD at bedside (order not changed despite my page to have it upda ashley). Port to be removed at bedside sometime today 12/27, per MD at bedside last evening. Barriers to discharge: Port removal; new one placed? andoff - Loi Jean RN - 12/26/2017 6:48 PM PSTNursing Handoff Patient Daily Goal: wants to have port switched out (12/26/17 0854) Patient Specific Preferences: Patient goes by "Aura" (12/24/17 0800) [facility] IP NURSE HANDOFF: [facility] hospital course events: Aura Upton is a 57 y.o. woman with metastatic cholangiocarcinoma (dx 2012, on palliative chemotherapy gem/cisplatin, portacath placed 2014), hx of SBO with gastrostomy tube (for venting), anxiety/insomnia, and recent a dmission for sepsis of unclear etiology who was admitted to the MICU for septic shock found to have gram negative bacteremia and concern for infected portacath COMFORT/ANXIETY/BEHAVIOR Patient/Family Target: Manage pain Progress to Target: Improving As evidenced by: Aura c/o generalized pain. She has been asking for oxycodone when she needs it. NURSING ASSESSMENT & RECOMMENDATIONS FORWARD Nursing Assessment of Patient Stability Risk: Moderately stable Recommendations Forward: - Reg diet, ACHS - G tube in place for pt to self vent (bag attached) - SBA - NPO at midnight for port removal Barriers to discharge: Needs port removed lan of Care - Fanta Moroe, AUDREY - 12/26/2017 12:36 PM PSTProblem: Nutrition Interventions Intervention: Food and nutrient distribution type or amount Patient endorses significant weight loss between May 2017 - June 2017 (19 kg, 26% UBW) rel ated to poor appetite and PO intake. Patient reports being on TPN from June until November and was last discharged without TPN on hospice. States her PO intake improved at home, transiti oned off of hospice and she has slowly gained back weight from her low of 118 lbs. Patient a menable to oral nutrition supplement at this time. Pt meets the following criteria suggesting: Moderate protein-calorie malnutrition related t o malignant disease with increased energy requirements as evidenced by the following: Energy intake: <75% energy intake compared to energy requirement for > 1 mo Depletion of fat stores: mild Depletion of muscle mass: moderate Nutrition Interventions (recs): - Continue current regular diet - RD to order Ensure Compact TID as AM Snack so patient can receive them cold. - RD to order Naked protein shake daily - Start Calorie count x 3 days - Monitor and replete serum phosphate as indicate - Consider utilization of bowel regimen as patient without BM x 3 days. Nutrition diagnosis: Increased nutrient needs related to metastatic disease as evidence by known increased energ y expenditure associated with cancer Goal of nutrition care: Intake: Promote adequate po intake to sufficiently meet 75% of nutrition needs Digestive: Regular bowel movements (formed, soft) Q 1-2 days Labs: Phos WDL Weight: Maintain current weight this admit; Prevent future weight loss. Report Electronically Signed By: Fanta Thapa RD, LD Pager #: [phone] Comments: Aura Upton is a 57 y.o. female with a PMHx of metastatic cholangiocarcinoma on palliative chemo (gemcitabine/carboplatin), hx of SBO s/p venting gastrostomy tube, L si ded hydronephrosis s/p ureteral stent placement who is transferred from [facility] for management of GNB bacteremia. Additional nutrition focused physical findings: GI: Last BM: 12/23 Feeding tube: PEG (05/2017) Skin: Port Nutrition Order: Regular Diet Food Allergies: nkfa Estimated Nutrition Intake: 12/23-12/25 The patient consumed ~30% of 2 documented meals Pertinent Labs: (12/26) Phos: 2.3 mg/dL Pertinent Medications: Senokot Anthropometrics: Height: 63" Admission Weight: 60.8 kg Weight hx: (per patient report and OSH records) 05/20/2017: 70.1 kg ([place] [facility]) 06/2017: 53.6 kg (per patient) Weight Change: 7.2 kg wt gain x 6 months with previous 16.4 kg weight loss x 1 month (23.4% -severe) BMI: 23.7 kg/m^2 [place] Body Weight: 52.3 kg Estimated Nutrition Needs: 9661-0000 kcal/day (30-35 kcal/kg) 90-120 g protein/day (1.5-2 g/kg) Nutrition Focused Physical Exam: completed 12/26 Subcutaneous Fat Orbital Region: Mild Triceps Area: Mild Midaxillary Line: Mild Muscle (Upper Body) Temporalis: Mild Clavicle Region (pectoralis major, deltoid, trapezius): Moderate Clavicle and Acromion Region (deltoid): Moderate Scapular Region (trapezius, latissimus dorsi): Moderate Dorsal Hand (interosseous): Moderate Muscle (Lower Body) Unable to assess Summary of findings: mild fat depletion; moderate muscle depletion andoff - Rain Vang RN - 12/26/2017 2:23 AM PSTNursing Handoff Patient Daily Goal: "Find out what's going on" (12/24/17799) Patient Specific Preferences: Patient goes by "Aura" (12/24/17799) [place] IP NURSE HANDOFF: [facility] hospital course events: Aura Upton is a 57 y.o. woman with metastatic cholangiocarcinoma (dx 2012, on palliative chemotherapy gem/cisplatin, portacath placed 2014), hx of SBO with gastrostomy tube (for venting), anxiety/insomnia, and recent a dmission for sepsis of unclear etiology who was admitted to the MICU for septic shock found to have gram negative bacteremia and concern for infected portacath SAFETY Patient/Family Target: No falls this shift Progress to Target: Improving As evidenced by: Aura calls appropriately for assist. She is SBA - no c/o dizziness COMFORT/ANXIETY/BEHAVIOR Patient/Family Target: Manage pain Progress to Target: Improving As evidenced by: Aura c/o generalized pain. She has requested her oxycodone to be given when availabe (q 4 hrs). She also has PO dilaudid available for severe pain. HYGIENE/INFECTION Patient/Family Target: Manage Infection Progress to Target: Improving As evidenced by: Aura is on multiple antibiotics. Her vital signs are stable and she has no s/s of an i nfection. RESTORATIVE MEASURES/SELF-MANAGEMENT Patient/Family Target: Ambulate this shift As evidenced by: Encourage pt to ambulate this shift. Reinforce teaching benefits of getting OOB. Aura ambulated in room only during the night but walked a mile during the evening. NURSING ASSESSMENT & RECOMMENDATIONS FORWARD Nursing Assessment of Patient Stability Risk: Moderately stable Recommendations Forward: - Reg diet, ACHS - G tube in place for pt to self vent (bag attached) - SBA - Has been NPO since PA but is not on the surgical schedule or as an add on. (she would li ke her Port removed so she can go home on antx) Maggy Abbott RN - 12/25/2017 4:50 PM PSTNursing Handoff Patient Daily Goal: "Find out what's going on" (12/24/17 0800) Patient Specific Preferences: Patient goes by "Aura" (12/24/17 08) [facility] IP NURSE HANDOFF: [facility] hospital course events: Aura Upton is a 57 y.o. woman with metastatic cholangiocarcinoma (dx 2012, on palliative chemotherapy gem/cisplatin, portacath placed 2014), hx of SBO with gastrostomy tube (for venting), anxiety/insomnia, and recent a dmission for sepsis of unclear etiology who was admitted to the MICU for septic shock found to have gram negative bacteremia and concern for infected portacath SAFETY Patient/Family Target: No falls this shift Progress to Target: Improving As evidenced by: Aura calls appropriately for assist. She is SBA - no c/o dizziness COMFORT/ANXIETY/BEHAVIOR Patient/Family Target: Manage pain Progress to Target: Improving As evidenced by: Aura c/o generalized pain. She has requested her oxycodone to be given when availabe (q 4 hrs). She also has PO dilaudid available for severe pain. HYGIENE/INFECTION Patient/Family Target: Manage Infection Progress to Target: Improving As evidenced by: Aura is on multiple antibiotics. Her vital signs are stable and she has no s/s of an i nfection. Port will likely be removed tomorrow NURSING ASSESSMENT & RECOMMENDATIONS FORWARD Nursing Assessment of Patient Stability Risk: Moderately stable Recommendations Forward: - Reg diet, ACHS - G tube in place for pt to self vent (bag attached) - SBA - Port removal tomorrow? Rain Walters RN - 12/25/2017 12:21 AM PSTNursing Handoff Patient Daily Goal: "Find out what's going on" (12/24/17 08) Patient Specific Preferences: Patient goes by "Aura" (12/24/17 08) [facility] IP NURSE HANDOFF: [facility] hospital course events: Aura Upton is a 57 y.o. woman with metastatic cholangiocarcinoma (dx 2012, on palliative chemotherapy gem/cisplatin, portacath placed 2014), hx of SBO with gastrostomy tube (for venting), anxiety/insomnia, and recent a dmission for sepsis of unclear etiology who was admitted to the MICU for septic shock found to have gram negative bacteremia and concern for infected portacath SAFETY Patient/Family Target: No falls this shift As evidenced by: Keep bed in lowest position, keep call light within reach, provide a clutter free environ ment with personal items within reach, provide non-skid footwear. Aura calls appropriate ly for assist. She is SBA - no c/o dizziness COMFORT/ANXIETY/BEHAVIOR Patient/Family Target: Manage pain As evidenced by: Aura c/o generalized pain. She has requested her oxycodone to be given when availabe (q 4 hrs). She also has PO dilaudid available for severe pain. RESTORATIVE MEASURES/SELF-MANAGEMENT Patient/Family Target: Ambulate this shift Use the IS As evidenced by: Encourage pt to ambulate this shift. Reinforce teaching benefits of getting OOB. Aura walked several times in her room and did 4 big laps with SBA in the halls. Aura demonstrated the proper use of the IS with good effort Recommendations Forward: - NPO since MN for possible port removal - G tube in place for pt to self vent (bag attached) - SBA ransfer Note - Brittany Lowery MD - 12/24/2017 4:16 PM PSTFormatting of this note might be different fro m the original. [facility] MEDICAL ICU - TRANSFER SUMMARY Hospital Day: 1 | ICU Day: 1 Disposition: Acute Care ID/CC: Aura Upton is a 57 y.o. woman w/ metastatic cholangiocarcinoma (on palliative chemotherapy with gemcitabine/cisplatin q3wk) admitted to the MICU from [place] after chem otherapy attempt for suspected septic shock. Hospital Summary: Pt went to chemo on 12/23 and developed fever up to 103.1F, presyncopal symptoms, and hypote nsion to 73/50 after her port was accessed prior to chemo adminstration. Last chemo was 6 wk s ago. She was sent to the ER and there was some concern for LLL PNA. OSH reported WBC 1.7, ANC 1500, which was spurious, her WBC here has been elevated at 17 and 22. She was started o n Vanc and Cefepime at OSH and transported to [facility] via plane. In route, BPs were stable with MAPs >65. On arrival to MICU, BP stabilized at 93/62, HR 68, T 98.1. Of note, she was hospitalized a month ago at [facility] for severe sepsis of uncl ear etiology and received 14 days of antibiotics. Pt states she underwent several test witho ut a clear source being found (do not currently have those records). She returned home on [facility] after that hospitalization as they would only discharge her on hospice or to a SNF. Sh e has improved and was restarting chemo on day of admission. Denies recent nightsweats, chills, cough, chest pain, or SOB. Endorses that she developed s harp RUQ pain while in commute to [facility]. Denies N/V/D/C, hematochezia, dysuria. No rashes or new open lesions. Pt has been stable since being in the ICU. Continued broad spectrum antibiotics pending blo od culture results. Doppler ultrasound negative for portal vein thrombosis. In the process o f ruling out another infectious source prior to asking IR to remove portacath line. Procedures: none Assessment & Plan: MaAmitaornis a 57 y.o. Woman w/ metastatic cholangiocarcinoma(on palliative chem otherapy with gemcitabine/carboplatin q3wk) admitted to the MICU from [place] for suspecte d septic shock. # Septic shock - resolving HDS after receiving 3L at OSH. Reported temp to 103.1F after port accessed. S/p vanc and ce fepime. Afebrile and HDS in MICU. Suspect infectious source is her portacath as she fevere d with a SIRS-like response directly after port was accessed on 12/23. She could have a bilia ry obstruction given known cholangiocarcinoma and report of RUQ pain with mild transaminitis so concern for abdominal source as well. Plan to r/o liver abscess/pathology given slightly elevated transaminases before calling IR to pull her portacath - continue IV Vanc 1gm qd, IV Cefepime 2gm, Flagyl 500mg q8hrs for broad coverage. - 1L additional L LR for Maps 67. - f/u blood cx from 12/24 --> narrow after results with sensitivities - UA screen negative for culture - follow up liver US to r/o biliary or hepatic source of infection #RUQ abdominal pain # transaminitis New 1 day onset of sharp RUQ pain associated with leukocytosis and 1 recorded temp at OSH. With known metastatic cholangiocarcinoma, concerned for intra-abdominal source. AST 170 and ALT 72 elevated mildly with elevated alkP 232, bili 0.9 further supoorting concern for bilia ry source. - f/u RUQ ultrasound # Hypotension - improving BP 80/60 with MAPs >65. Pt with good UOP and mentating well. Suspected pt Bp runs lower and can tolerate as long as MAP >65. 1L LR and 1 unit pRBCs. Do not think this is shock etiolog y # JULY Cr 1.26, improved from 1.36 with 4L fluid resuscitation at OSH and here. Baseline likely ~ 0.9. - continue to monitor after fluid resuscitation - no urine studies at this time. # Pain - continue home fentanyl 100mcg/hr patch (replaced on 12/23) - IV dilaudid 0.2 PRN q2hrs; PO and/or liquid dilaudid added to MAR prior to transfer - Naloxone PRN - APAP 325-650mg q4hr # Normocytic anemia # Leukocytosis #Thrombycytopenia Hgb 7.1 at OSH. Responded well to 1U pRBc as Hgb 9.5. Likely related to chemotherapy immuno suppression. WBC is 17.3 -->22.2 in the setting of septic shock from unknown source. Plts 67 up from 6 1 at OSH. - Transfuse Hgb <7. - monitor CBC - no concern for active bleed. Transfuse for plts <10. # Metastatic cholangiocarcinoma Receives gemcitabine/carboplatin q 3wks for palliation; was due to get dose 12/23. Has not h ad chemo in over 6 wks due to hospitalizations for sepsis of unknown origin. Pt follows with Dr. Epifanio Najera for her chemotherapy and asked that he be contacted to collaborate o n a plan regarding vascular access for her ongoing chemotherapy. - [place] Office: [phone] (Tuesday and Tuesday) - she goes to this office - Arcadio Ervin Office: [phone] Feeding: PO diet Analgesia: Hydromorphone, Fentanyl patch, APAP Sedation:None(RASS Goal 0 (alert and calm)) Thromboprophylaxis: heparin SC (Pharmacologic ppx contraindicated) Head of Bed: Ad mary Ulcer Prophylaxis: Not indicated Glycemic control: BS controlled < 180, insulin not indicated MobilityGoal:Ambulate Lines/Tubes/Drains/Airways: L chest portacath, 3 PIV, G- tube Code Status Code Status Full Code Surrogate Decision Maker Documentation: Surrogate Decision Maker Primary Surrogate Decision Maker Poncho Oquendo [phone] Vital Signs: Cuff BP (!) 84/59 (12/24/171599) | BP Min: 77/54 Max: 106/72 Cuff MAP 68 mmHg (12/24/171599) | BP Mean Min: 63 mmHg Max: 83 mmHg Art Line BP | No Data Recorded Art Line MAP | No Data Recorded HR 86 (12/24/171599) | Pulse Min: 67 Max: 106 | Cardiac Rhythm: Normal Sinus Rhythm;Regu lar (12/24/171599) Temp 36.8 C (98.2 F) (12/24/171599) | Temp Min: 36.7 C (98.1 F) Max: 37.2 C (9 9 F) RR 13 (12/24/171599) | Resp Min: 10 Max: 28 SpO2 96 % (12/24/171599) | SpO2 Min: 93 % Max: 100 % O2 Device None (room air) (12/24/171599) | FiO2: Flow (LPM): Cam/RASS Most Recent Value Overall CAM-ICU Negative RASS Scale 0 CPOT Intake/Output Summary (Last 24 hours) at 12/24/17 0700 Last data filed at 12/24/17 0645 Gross per 24 hour Intake 130 ml Output 2200 ml Net -2070 ml Intake/Output Summary (since admission) at 12/23/17 2311 Last data filed at 12/24/17 1541 Gross for the last 1 days Intake 760 ml Output 2700 ml Net since Admission -1940 ml BMI: 23.6 Weights 60.3 kg (132 lb 15 oz) (12/23/17 232) 75.7 kg (166 lb 12.8 oz) (07/23/14 1607) Admit Wt: 60.3 kg (132 lb 15 oz) Physical Exam: Physical Exam: General Appearance: no acute distress, speaking in full sentences HEENT: EOMI, MMM, sclera anicteric Respiratory: CTAB, no crackles or wheezes Cardiovascular: RRR, no murmurs/rubs/gallops Gastrointestinal: BS present, soft, mildly tender to palpation, G-tube with dressing c/d/i and non-erythematous Extremities: warm and well perfused, no edema Skin: No rashes or ulcers, no jaundice Neurologic: A&O, CN2-12 grossly intact Laboratories: Recent Labs 12/23/17233212/24/17440 WBC 17.23* 22.23* HB 9.7* 9.5* HCT 30.2* 29.1* MCV 98.4 96.4 PLT 51* 67* NEUTROPHILCO 14.99* 19.72* LYMPHSABS 0.29* 0.67* MONOCYTECO 0.16 0.46 EOSCO 0.00 0.01 BASOPHILCO 0.00 0.05 IMGRANABS 1.79* 1.32* No results for input(s): INRPT, APTT, FIBRINOGEN in the last 720 hours. Recent Labs 12/23/17233212/24/17440 NA 144 143 K 3.7 4.3 CL 111* 112* BICARB 22 21 BUN 16 18 CR 1.34* 1.26* CA 7.4* 7.4* ANIONGAP 11 10 Recent Labs 12/23/17233212/23/17233712/24/17440 GLU 111* 127* 87 Recent Labs 12/23/17233212/24/17440 AST 214* 170* ALT 77* 72* TBILI 0.9 0.9 AP 243* 232* ALB 2.5* 2.2* TP 6.1* 6.1* Recent Labs 12/23/172332 12/10/18 1547 LACTICACID 2.8 1.7 Lab Orders - In Process (Through next 24h) Start Ordered 12/24/17 1600 LIVER SET (AST,ALT,BILI TOTAL,BILI DIRECT,ALK PHOS,ALB,PROT TOTAL) ONCE 12/24/17 1151 12/23/17 2330 CULTURE, BLOOD BACTI & YEAST ONCE 12/23/17 2321 12/23/17 2330 CULTURE, BLOOD BACTI & YEAST ONCE 12/23/17 2321 Microbiology: 12/23 Blood Culture x2: pending 12/24 UA- normal, no culture sent Imaging: OSH 12/23 CXR: patchy density in LL base with obscuration of the diaphragm consistent with P NA or atelectasis CXR ([facility]) 12/24: Minimal bibasilar subsegmental atelectasis. No focal [...] injection 5,000 Units 5,000 Units subcutaneous Q8H LORazepam (ATIVAN) tablet 1.5 mg 1.5 mg oral HS metroNIDAZOLE (FLAGYL) IV 500 mg 500 mg intravenous Q8H Stopped (12/24/17 1541) polyethylene glycol (MIRALAX) packet 17 g 17 g oral DAILY senna-docusate (SENOKOT S) 8.6-50 mg 2 tablet 2 tablet oral BID vancomycin (VANCOCIN) IV 1,000 mg 15 mg/kg intravenous Q24H Stopped (12/24/17 1327) Current Facility-Administered Medications Medication Dose Route Frequency [...] 34 g 34 g oral TID PRN Transfer of this patient was communicated with Sasha Jarrett MD of the acute care team at 5:05PM on 12/24/2017. Brittany Dean MD 12/24/2017, 4:16 PM Template created by [employer] 2017 documented in th is encounter Plan of Treatment Not on filedocumented [...] | | POC | | PST | ([facility]) | results section. | + +--------+ + [...] | | POC | | PST | ([facility]) | results section. | + +--------+ + + + | CAPILLARY BLOOD | Routin | 12/27/2017 | Sepsis, due to | Results for this | | GLUCOSE (NO CHG), | e | 8:27 AM | unspecified organism | procedure are in the | | POC | | PST | (HCC) | results [...] | | POC | | PST | ([facility]) | results section. | + +--------+ + + + | CAPILLARY BLOOD | Routin | 12/26/2017 | Sepsis, due to | Results for this | | GLUCOSE (NO CHG), | e | 11:23 AM | unspecified organism | procedure are in the | | POC | | PST | ([facility]) | results section. | + +--------+ + + + | CAPILLARY BLOOD | Routin | 12/26/2017 | Sepsis, due to | Results for this | | GLUCOSE (NO CHG), | e | 10:12 AM | unspecified organism | procedure are in the | | POC | | PST | ([facility]) | results section. | + +--------+ + [...] | | POC | | PST | ([facility]) | results section. | + +--------+ + + + | CAPILLARY BLOOD | Routin | 12/25/2017 | Sepsis, due to | Results for this | | GLUCOSE (NO CHG), | e | 1:41 PM | unspecified organism | procedure are in the | | POC | | PST | ([facility]) | results section. | + +--------+ + [...] | | POC | | PST | ([facility]) | results section. | + +--------+ + + + | CAPILLARY BLOOD | Routin | 12/25/2017 | Sepsis, due to | Results for this | | GLUCOSE (NO CHG), | e | 12:31 AM | unspecified organism | procedure are in the | | POC | | PST | ([facility]) | results section. | + +--------+ + [...] | + +--------+ + + + | [employer] LAB PORTAL / | Routin | 12/24/2017 [...] | | POC | | PST | ([facility]) | results section. | + +--------+ + [...] + + | [facility] | [address] | [place], [place] | | | DG ABERCROMBIE OF [facility] | [address] | [address] | | | TESTS | | | | + + + + + CULTURE, CATH JASON PIERCEI (12/27/2017 9:55 AM PST) + + + + + + | Component | Value | Ref Range | Performed | Pathologist | | | | | At | Signature | + + + + + + | CULTURE | Klebsiella pneumoniae | | G[facility] - | | | RESULT | (A) | | AIRPORT - | | | | | | [place] | | + + + + + [...] + | [facility] - AIRPORT - | [address] | [place] [address] | | | [place] | | | | + + + + + PROCEDURE NOTE (12/27/2017 9:39 AM PST) + + + | Narrative | Performed At | + + + | Micah Flowers MD 12/27/2017 9:49 AM EGS IINPATIENT [...] pause: MARISEL REARDON MD; BROOKE RODRIGUEZ MD; MICAH FLOWERS MD | | | PLAN: After [...] 83 | 60 - 99 mg/dL | [facility] [...] [facility] | [address] | [place], [place] | | | JOHN CONTE OF CARE | [address] | [address] | | | TESTS | | | [...] [facility] | [address] | [place], [place] | | | DG POINT OF CARE | [address] | [address] | | | TESTS | | | [...] [facility] | [address] | [place] [address] | | | SERVICES, CORE | PARK [...] | | | LABORATORY | | | [facility] | | | SERVICES, | | | [...] + + + + | [facility] [address] | [address] | [place] [address] | | | SERVICES, CORE | [address] | | | + + + [...] [facility] | [address] | [place], [place] | | | DG POINT OF CARE | [address] | [address] | | | TESTS | | | [...] + | [facility] | [address] | [place], [place] | | | DG POINT OF CARE | [address] | [address] | | | TESTS | | | [...] + + + | [facility] | [address] | [place], [place] | | | DG POINT OF CARE | [address] | [address] | | | TESTS | | | [...] | | | LABORATORY | | | [facility] | | | SERVICES, | | | [...] | + + + + + | [facility] | [address] | [place] [address] | | | SERVICES, CORE | [address] | | | + + + [...] | [facility] | [address] | [place], [place] | | | JOHN CONTE OF AR[facility]UN | [facility] | [address] | | | TESTS | | | [...] | | | POC | | | [place] | | | | | | OF [...] + | [facility] | [address] | [place], [place] | | | JOHN CONTE OF [facility] | [facility] | [address] | | | TESTS | | | [...] | + + + + + | [facility] | [address] | [place] [address] | | | GAVIN, SAM | [address] | | | + + + [...] ranges for Lymphocyte % in effect July 28 | [facility] | | 2017. Increased immature [...] + + + + | [facility] | [address] | [place] [address] | | | SERVICES, CORE | [address] | | | + + + + + CULTURE, BLOOD BACTI & YEAST [facility] (12/25/2017 7:18 AM PST) + + + [...] + + + + | [facility] | [address] | [place] [address] | | | SERVICES, CORE | PARK [...] [facility] | [address] | [place] [address] | | | SERVICES, CORE | [address] [...] mech. valves (2.5 - 3.5) INR | GAVIN CORE | + + + + + + + + | Performing | Address | City/State/Zipcode | Phone Number | | Organization | | | | + + + + + | [facility] | [address] | [place] [address] | | | SERVICES, [facility] | [address] | | | + [...] | | | LABORATORY | | | [place] | | | SERVICES, | | | [...] + + + + | [facility] | [address] | [place] [address] | | | SAM ALONSO | [address] | | | + + + [...] + | [facility] | [address] | [place], [place] | | | DG POINT OF CARE | [address] | [address] | | | TESTS | | | [...] + + + | [facility] | [address] | [place], [place] | | | JOHN CONTE OF CARE | [address] | [address] | | | TESTS | | | | + + + + + US LC ARAGON (12/24/2017 6:19 PM PST) + + | [...] Note | + + | Service Account, [employer] Res In Interface - 12/24/2017 9:33 PM [...] necessary, edited the report. I agree with e report as now presented. | | [...] [facility] | [address] | [place] [address] | | | SERVICES, CORE | [address] [...] + +---------+ + + + | BILI D CMNT | No Hemo | | [facility] [...] + + + + | [facility] | [address] | [place] [address] | | | SERVICES, CORE | PARK [...] | + +---------+ + + + | NON-GABRIELA | Ara (A) | None /hpf | [facility] | [...] | + + + + + | [facility] | [address] | [place] [address] | | | SERVICES, SAM | [address] | | | + + + [...] + + + + | [facility] [address] | [address] | [place] [address] | | | SERVICES, CORE | [address] | | | + + + [...] Note | + + | Service Account, [employer] In Interface - 12/24/2017 4:55 PM PST [...] At | + + + | EXAM: UT CHEST 1 VIEW HISTORY: fever COMPARISON: Outside [...] Muller MD 12/24/2017 1:04 PM Preliminary: Giovanni Soler | | | MD Renzo Dictation initiated: Giovanni Muller MD 12/24/2017 1:03 | | | PM | | + + + + + | Procedure Note | + + | Service Account, [employer] Res In Interface - 12/24/2017 1:05 PM PST EXAM: UT CHEST 1 | | VIEW HISTORY: fever [...] | | | + +---------+ + + JUAN JOSÉ MESSINA (12/24/2017 8:25 AM PST) + +-------+ + [...] [facility] | [address] | [place] [address] | | | SERVICES, SAM | [address] | | | + + + + + RBC MORPHOLOGY (12/24/2017 4:41 AM PST) + + | Specimen | + + | Blood - Blood | | (substance) | + + + + + + + | Performing | Address | City/State/Zipcode | Phone Number | | Organization | | | | + + + + + | [facility] | [address] | [place] [address] | | | SERVICES, CORE | [address] | | | + + + [...] + | [facility] | [address] | [place] [address] | | | SERVICES, CORE | PARK [...] | | | LABORATORY | | | [place] | | | SERVICES, | | | [...] [facility] | [address] | [place] [address] | | | SERVICES, CORE | [address] [...] | + + + + + | [facility] [address] | [address] | [place] [address] | | | SERVICES, CORE | [address] | | | + + + [...] + + + + + + | TONI[facility]RISA | [address] | ms | [facility] [...] + + + + + | [facility] | [address] | [place], [place] | | | CARDIOLOGY | [address] | [address] | | + + + + + [...] [facility] | [address] | [place], [place] | | | JOHN CONTE OF CARE | [address] | [address] | | | TESTS | | | | + + + + + CULTURE, BLOOD BACTI & YEAST [facility] (12/23/2017 11:34 PM PST) + + + [...] [facility] | [address] | [place] [address] | | | SERVICES, CORE | [address] [...] + + + + | [facility] | [address] | [place] [address] | | | SERVICES, CORE | [address] [...] ranges for Lymphocyte % in effect July 28 | [facility] | | 2017. Increased immature [...] | + + + + + | [facility] | [address] | [place] [address] | | | SERVICES, CORE | [address] [...] + | [facility] | [address] | [place] [address] | | | SERVICES, CORE | [address] [...] | + + + + + | [facility] | [address] | [place] [address] | | | SERVICES, | [address] | | | | TRANSFUSION MEDICINE [...] [facility] | [address] | [place] [address] | | | SERVICES, | [address] [...] [facility] | [address] | [place] [address] | | | SERVICES, [facility] | [address] | | | + [...] | | | LABORATORY | | | [facility] | | | SERVICES, | | | [...] | + + + + + | [facility] | [address] | [place] [address] | | | SERVICES, SAM | [address] | | | + + + [...] + | Diagnosis | + + | Sepsis, due to unspecified organism | + + | Sepsis (HCC) | + + | Chronic use of opiate drugs therapeutic purposes | + + | Hx of small bowel obstruction Personal history of other diseases of digestive system | + + | Gastrostomy tube in place (HCC) | + + | Bacteremia due to Gram-negative bacteria Bacteremia | + + | Septic shock (HCC) | + + | Insomnia Insomnia, unspecified | + + | JULY (acute kidney injury) (HCC) Acute kidney failure, unspecified | + + | Moderate protein-calorie malnutrition (HCC) Malnutrition of moderate degree | + + | Cholangiocarcinoma (HCC) Malignant [...] PST | | | Back | | 11/10/18 at 0200, Until | | | | [...] 12/24/17 | | | at 2356, Until 12/27/17 at | | | 1926, severe pain [...] | | | | | 1834, Until 12/27/17 at 1253, | | | | | [...] 2327, | | | Until Tue12/27/17 at 1926, | | | insomnia | | + +---+ | | | + +---+ | menthol-zinc oxide (CALAZIME) | | | topical paste 0.2%-16.5% | | | topical, FOUR TIMES DAILY | | | NEEDED, Starting Tue12/23/17 at | | | 2325, Until 12/27/18 at 1926, | | | skin irritation, redness, | [...] Until Tue | | | 12/27/17 at 192, over sedation | | + +---+ | | | + +---+ | oxyCODONE (immediate release) | | | (ROXICODONE) liquid 5-10 mg 5-10 | | | mg, oral, EVERY 4 HOURS | | | NEEDED, Starting 12/24/17 at | | | 1731, Until Tue12/27/17 at 1925, | | | moderate pain if pt [...]
--- OUTSIDE RECORDS SUMMARY | ~2019-10-19 | XMS | Encounter Summary ---
Demographics + + + | Address | [address] | | | [place] [address] | + + + | Home Phone [...] Team Providers + +------+ + | Care Pipe Foreman Name | Role | Phone | + +------+ + | Tomasa Wagner | PCP | | + +------+ + Reason for Visit + + + | Reason | Comments | + + + | Medical Records | [facility] - OUTSIDE RECORDS 06/24/14 Bookmarked Document (notes, labs, | | Review | imaging) | + + + Encounter Details +--------+ + + + + | Date | Type | Department | Care Team | Description | +--------+ + + + + | 06/25/ | Abstract | [facility] | Tai Stanton, | Medical Records | | 2015 | | Center at [facility] [address] | [address] [facility] | Review ([facility] - | | | | [facility] | [facility] | OUTSIDE RECORDS | | | | for Health and | [place], [place] | 06/24/14 Bookmarked | | | | [facility] | [address] | Document (notes, | | | | [place], [place] | [phone] | labs, imaging)) | | | | [address] | | | | | | [phone] | | | +--------+ + + + [...]
--- OUTSIDE RECORDS SUMMARY | ~2019-10-19 | XMS | Encounter Summary ---
Demographics + + + | Address | [address] | | | [place] [address] | + + + | Home Phone [...] Author | [facility] | | | and [place] | + + + | Organization | [facility] | | | and [place] | + + + | Address | Unknown | + + + | Phone | Unavailable | + + + Support + + + + + | Name | Relationship | Address | Phone | + + + + + | Poncho Oquendo | ECON | [address] | | | | | [place] | | | | | [address] | | + + + + + | Marta Upton | ECON | [place] | | | | | [address] | | + + + + + Care Team Providers + +------+ + | Care Coffee Shop Aide Name | Role | Phone | [...] | | | | | Procedures | [address] | [address] | | | | | CT OFFICE | Phone: | [place] | | | | | OUTPATIENT | [phone] | [address] | | | | | VISIT 25 | Fax: | Phone: | | | | | MINUTES | [phone] | [phone] | | | | | | | Fax: | | | | | | | [phone] | +--------+--------+ + + + + Encounter Details +--------+ + + + + | Date | Type | Department | Care Team | Description | +--------+ + + + + | 12/17/ | Hospital | [facility] | Reinaldo, | Gallbladder cancer, | | 2015 | Encounter | [facility] | Chad Soler MD 2801 | carcinoma (HCC) | | | | ONCOLOGY CLINIC 401 | [facility] | (Primary Dx) | | | | [address] | [address] [place], [place] | | | | | [place] [address] | [id number] | | | | | [phone] | | | +--------+ + + + [...] nt from the original. Hematology/Oncology Progress Note [facility] Pt. Name/Age/: Aura Upton 54 y.o. 1960 Med. Record Number: [id number] Date of admission: 12/17/2014 Identifying Statement: Aura Upton is a 54 y.o. female from [address] [place] [address] with Recurrent Cholangiocarcinoma. The patient chart and [...] Brandon Garcia March 29, 2012, pathological specimen [id number], analyzed by Dr. Bowers of [facility] and was notable for a poorly-differentiated adenoc arcinoma of the gallbladder. Liver biopsy demonstrated mild portal inflammation. 2. On April 28, 2012, she successfully underwent an R0 resection by Dr. Tai Stanton at [facility], pathological specimen [id number] was notable for the absence of any residual carcinoma within the gallbladder bed. However, 2/8 regional lym ph nodes contained regionally metastatic disease. 3. Consultation by Dr. Elva Grey of the [facility] on May returned the recommendation for adjuvant chemoradiation therapy following [id number] as follows: Capecitabine at 750 mg/m sq [...] by Dr. Oziel Casillas of the [facility]. Pathological analysis was notable for [...] 7. Consultation with Dr. Elva Grey the [facility] in June 26, 2014 who recommended additional chemotherapy was cisplatin at 75 mg meter squared on day 1 a nd gemcitabine 1250 mg per meter squared on day one and day 8 of acute 21 day cycle for 6-8 cycles. A second opinion was obtained by Dr. Richie Thayer of the [facility] iance who returned the recommendation [...] recommendations of Dr. Richie Thayer of the [facility] with gemcitabine at 1000 mg per meter squared on day one and day 8 w ith cisplatin 25 mg meter squared on day one and day 8 of a Q 21 day cycle beginning on July 26, 2014 complicated by grade 3 neutropenia and grade [address]. [address] scan of the chest, abdomen and pelvis that [facility] on September 16, 2014 demonstrated no radiographic evidence of disease. 11. Completion of 6 cycles of cisplatin/gemcitabine chemotherapy at the [facility] in [place], [place] on November 29, 2014. 12. Repeat CT scan of the chest, abdomen and pelvis that [facility] on December 17, 2014 demonstrated no radiographic evidence of disease Current Assessment & Plan Aura returned to clinic on December 17, [address] scan earlier today demonstrat es no evidence of recurrence of her cholangiocarcinoma. Plan; Cross over to observation. Follow up in two months for port draw for labs and port sd us. In the interim, she will see Dr. Richie Thayer at the [facility]. Review of Systems: Constitutional: Reports that her [...] Adali RAshley., Steven Figueroa., Birdie Burns., Avery, T.Lynn., James, E.T., Viraj, P .P.: Toxicity And [...] this chart may have been created with [employer] voice recognition software. Occasi onal wrong-word or sound-alike substitutions may have occurred due to the inherent stevenson itations of voice recognition software. Please read the chart carefully and recognize, using context, where these substitutions have occurred. documented in this encounter Miscellaneous Notes Assessment & Plan Note - Chad Riggins MD - 12/17/2014 7:24 PM PSTAssociated Prob jose(s): Gallbladder cancer, carcinoma (HCC)Aura returned to clinic on December 17, [address] scan earlier today demonstrates no evidence of recurrence of her cholangiocarcino ma. Plan; Cross over to observation. Follow up in two months for port draw for labs and port fl us. In the interim, she will see Dr. Richie Thayer at the [facility].El ectronically signed by Chad Riggins MD at 12/17/2014 7:24 PM PSTdocumented in this encounter Plan of Treatment +--------+---------+ + + + | Date | Type | Specialty | Care Team | Description | +--------+---------+ + + + | 10/29/ | Office | Urology | Pedro Green, | | | 2019 | Visit | | [facility] | | | | | | [place] [address] | | | | | | [phone] | | | | | | | [...]
--- OUTSIDE RECORDS SUMMARY | ~2019-10-19 | XMS | Encounter Summary ---
Demographics + + + | Address | [address] | | | [place] [address] | + + + | Home Phone [...] | [facility] | | | and [place] | + + + | Organization | [facility] | | | and [place] | + + + | Address | Unknown | + + + | Phone | Unavailable | + + + Support + + + + + | Name | Relationship | Address | Phone | + + + + + | Poncho Omar Oquendo | ECON | [address] | | | | | [place] | | | | | [address] | | + + + + + | Marta Upton | ECON | [place] | | | | | [address] | | + + + + + Care Team Providers + +------+ + | Care Facility Maintenance Worker Name | Role | Phone [...] | | Radiology | Diagnoses | | [facility] | | | | | 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, | 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 | Epifanio Soler, | Medicine [address] | | | | | passages | [address] | [address] | | | | | (HCC) | [address], | [address] | | | | | Procedures | [address] | [place], [place] | | | | | PET CT Skull | [place], | [address] | | | | | Base To Mid | [place] [address] | Phone: | | | | | Thigh | | [phone] | | | | | | | Fax: | | | | | | | [phone] | +--------+--------+ + + + + Reason for Visit Diagnostic/Screening (Routine) +--------+--------+ + + + + | Status | Reason | Specialty | Diagnoses / | Referred By | Referred To | | | | | Procedures | Contact | Contact | +--------+--------+ + + + + | Closed | | Radiology | Diagnoses | | [facility] | | | | | 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, | 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 | Epifanio Soler | Medicine [address] | | | | | [address]vin | [address] | [address] | | | | | (HCC) | [place]DA LINDQUIST, | [address] | | | | | Procedures | [address] | [place], [place] | | | | | PET CT Skull | [place], | [address] | | | | | [place] | [place] [address] | Phone: | | | | | Thigh | | [phone] | | | | | | | Fax: | | | | | | | [phone] | +--------+--------+ + + + + Encounter Details +--------+ + + + + | Date | Type | Department | Care Team | Description | +--------+ + + + + | 02/15/ | Hospital | [facility] | Reinaldo, | Cancer of biliary | | 2019 | Encounter | [facility] | Epifanio Soler MD [address] | passages ([facility]) | | | | MEDICINE [address] | [address] | | | | | [address] | [address] | | | | | [place], [place] | [address] | | | | | [address] | | | | | | [phone] | | | +--------+ + + + [...] 2019 | Visit | | DO Vaishali MARADIAGA | | | | | | [place] [address] | | | | | | [phone] | | | | | | | | +--------+---------+ + + + documented as of this encounter Procedures + +--------+ + + + | Procedure Name | Priori | Date/Time | Associated Diagnosis | Comments | | | ty | | | | + +--------+ + + + | PET CT SKULL BASE TO | Routin | 02/15/2019 | Cancer of biliary | Results for this | | MID THIGH | e | 12:52 PM | passages (HCC) | procedure are in the | | | | PST | | results section. | + +--------+ + + + | POC GLUCOSE (NON | Routin | 02/15/2019 | | Results for this | | ORD) | e | 10:39 AM | | procedure are in the | | | | PST | | results section. | + +--------+ + + + documented in this encounter Results PET CT Skull Base To Mid Thigh (02/15/2019 12:52 PM PST) + + | Specimen | + + | | + + + + + | Impressions | Performed At | + + + | Summary of Target Lesions: *No evidence of recurrent or metastatic | [facility] | | disease. Other PET/CT Findings: *Moderate parenchymal atrophy | | | of left kidney. Moderate left hydronephrosis with dilated | | | extrarenal left renal pelvis. Left ureteric stent in-situ. *Large | | | amount of stool in colon. Correlate for history of constipation. | | | *Small ventral abdominal wall hernia with herniation of an eccentric | | | portion of a small bowel loop. No intestinal obstruction or | | | strangulation. *Additional incidental findings as detailed above. | | | Comments: *No evidence of recurrent or metastatic disease. 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 Chemotherapy ended in | | | October 2018. COMPARISON: FL C ARM (11/29/2018); XR C-ARM | | | FLUORO UP TO 1 HOUR (07/05/2018); CT CHEST ABDOMEN PELVIS W CONTRAST | | | (12/17/2014); CT CHEST ABDOMEN PELVIS W CONTRAST (05/22/2014); | | | PROCEDURE: The patient was evaluated with a dedicated PET/CT scanner. | | | Upon arrival, the patient's fasting fingerstick blood glucose level | | | was 84 mg/dL. 14.4 mCi of 18-FDG was injected IV at 1042 hours, and | | | 63 minutes post-injection CT attenuation-correction images and then | | | subsequent PET images (attenuation-corrected and emission-only | | | images) were obtained from base of skull to thigh. PET, | | | noncontrast-attenuation CT, and fused PET/CT images were then | | | reformatted and reviewed in the axial, sagittal, coronal and 3-D | | | maximum intensity projection planes. FINDINGS: HEAD: Brain: The | | | distribution of FDG activity in the visualized brain is physiologic. | | | Paranasal Sinuses: No significant abnormalities to the extent seen. | | | NECK: Neck: The distribution of FDG activity in the neck is | | | physiologic. Thyroid: Physiologic distribution of FDG activity in the | | | thyroid gland. No abnormal focal or diffuse increased activity. | | | CHEST: Lungs, Pleura and Airways: No significant pulmonary | | | abnormality. No airway narrowing or obstruction. No pleural | | | effusion or pneumothorax. Small fat containing left Bochdalek | | | hernia. Bibasilar subsegmental atelectasis or scarring. | | | Mediastinum: No significant pericardial, great vessel, or esophageal | | | abnormality. No mediastinal mass. Port-A-Cath in-situ with tip | | | terminating in distal superior vena cava. Lymph Nodes: There are no | | | pathologically enlarged or FDG-avid lymph nodes in the chest. | | | ABDOMEN: Liver and Biliary: No biliary abnormality. No abnormal | | | metabolic activity in the liver. Status post cholecystectomy. No | | | biliary dilation. Multiple surgical clips in right upper abdomen. | | | Pancreas, Spleen and Adrenals: Moderate diffuse pancreatic atrophy. | | | No abnormal metabolic activity in the pancreas, spleen,or adrenal | | | glands. Small splenic calcification, probable calcified granuloma. | | | Kidneys: No right renal stone or hydronephrosis. Moderate | | | parenchymal atrophy of the left kidney. Moderate left | | | hydronephrosis. Dilated extrarenal left renal pelvis. Left | | | ureteric stent in-situ. ABDOMEN AND PELVIS: Bowel: No small bowel | | | or colonic dilatation. Physiologic metabolic activity present in | | | bowel loops. Colonic diverticulosis. Large amount of stool in | | | colon. Likely postsurgical changes from prior percutaneous | | | gastrostomy tube, image 140/series 4. Vessels: No aneurysm. | | | Lymph Nodes: No enlarged or FDG-avid lymph nodes. Small right | | | epiphrenic lymph node measuring approximately 5 mm, image 125/series | | | 4, nonspecific, measured approximately [address] dated 12/17/2014. | | | Peritoneum and Retroperitoneum: No intraperitoneal free air, ascites | | | or peritoneal mass. No significant retroperitoneal abnormality. | | | PELVIS: Genitourinary: No hydroureter. No ureteral or bladder | | | calculus. Status post hysterectomy and bilateral oophorectomy. | | | Body Wall: Postsurgical scarring in ventral abdominal wall. Small | | | ventral abdominal wall hernia with herniation of and eccentric portion | | | of a small bowel loop, image 166/series 4. No intestinal | | | obstruction or strangulation. Bones: No acute fracture or vertebral | | | end plate destruction. No lytic or blastic lesion. 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 Chemotherapy ended in | | October 2018. | | | | | | COMPARISON: | | FL C ARM (11/29/2018); XR C-ARM FLUORO UP TO 1 HOUR (07/05/2018); CT | | CHEST ABDOMEN PELVIS W CONTRAST (12/17/2014); CT CHEST ABDOMEN PELVIS W | | CONTRAST (05/22/2014); | | | | PROCEDURE: | | The patient was evaluated with a dedicated PET/CT scanner. Upon | | arrival, the patient's fasting fingerstick blood glucose level was 84 | | mg/dL. 14.4 mCi of 18-FDG was injected IV at 1042 hours, and 63 | | minutes post-injection CT attenuation-correction images and then | | subsequent PET images (attenuation-corrected and emission-only images) | | were obtained from base of skull to thigh. PET, noncontrast-attenuation | | CT, and fused PET/CT images were then reformatted and reviewed in the | | axial, sagittal, coronal and 3-D maximum intensity projection planes. | | | | FINDINGS: | | HEAD: | | Brain: The distribution of FDG activity in the visualized brain is | | physiologic. | | Paranasal Sinuses: No significant abnormalities to the extent seen. | | | | NECK: | | Neck: The distribution of FDG activity in the neck is physiologic. | | Thyroid: Physiologic distribution of FDG activity in the thyroid gland. | | No abnormal focal or diffuse increased activity. | | | | CHEST: | | Lungs, Pleura and Airways: No significant pulmonary abnormality. No | | airway narrowing or obstruction. No pleural effusion or pneumothorax. | | | | Small fat containing left Bochdalek hernia. Bibasilar subsegmental | | atelectasis or scarring. | | Mediastinum: No significant pericardial, great vessel, or esophageal | | abnormality. No mediastinal mass. | | | | Port-A-Cath in-situ with tip terminating in distal superior vena cava. | | Lymph Nodes: There are no pathologically enlarged or FDG-avid lymph | | nodes in the chest. | | | | ABDOMEN: | | Liver and Biliary: No biliary abnormality. No abnormal metabolic | | activity in the liver. Status post cholecystectomy. No biliary | | dilation. Multiple surgical clips in right upper abdomen. | | Pancreas, Spleen and Adrenals: Moderate diffuse pancreatic atrophy. No | | abnormal metabolic activity in the pancreas, spleen,or adrenal glands. | | Small splenic calcification, probable calcified granuloma. | | Kidneys: No right renal stone or hydronephrosis. Moderate parenchymal | | atrophy of the left kidney. Moderate left hydronephrosis. Dilated | | extrarenal left renal pelvis. Left ureteric stent in-situ. | | | | ABDOMEN AND PELVIS: | | Bowel: No small bowel or colonic dilatation. Physiologic metabolic | | activity present in bowel loops. | | | | Colonic diverticulosis. Large amount of stool in colon. | | | | Likely postsurgical changes from prior percutaneous gastrostomy tube, | | image 140/series 4. | | | | Vessels: No aneurysm. | | Lymph Nodes: No enlarged or FDG-avid lymph nodes. | | | | Small right epiphrenic lymph node measuring approximately 5 mm, image | | 125/series 4, nonspecific, measured approximately [address] dated | | 12/17/2014. | | | | Peritoneum and Retroperitoneum: No intraperitoneal free air, ascites or | | peritoneal mass. No significant retroperitoneal abnormality. | | | | PELVIS: | | Genitourinary: No hydroureter. No ureteral or bladder calculus. Status | | post hysterectomy and bilateral oophorectomy. | | Body Wall: Postsurgical scarring in ventral abdominal wall. Small | | ventral abdominal wall hernia with herniation of and eccentric portion | | of a small bowel loop, image 166/series 4. No intestinal obstruction | | or strangulation. | | Bones: No acute fracture or vertebral end plate destruction. No lytic | | or blastic lesion. | | | | IMPRESSION: | | Summary of Target Lesions: | | *No evidence of recurrent or metastatic disease. | | | | | | Other PET/CT Findings: | | *Moderate parenchymal atrophy of left kidney. Moderate left | | hydronephrosis with dilated extrarenal left renal pelvis. Left | | ureteric stent in-situ. | | *Large amount of stool in colon. Correlate for history of constipation. | | *Small ventral abdominal wall hernia with herniation of an eccentric | | portion of a small bowel loop. No intestinal obstruction or | | strangulation. | | *Additional incidental findings as detailed above. | | | | | | Comments: | | *No evidence of recurrent or metastatic disease. | | | | | | | | | | Signed by: Maycol Urias, [place] | | Sign Date/Time: 02/15/2019 1:37 PM | + + + +---------+ + + | Performing | Address | City/State/Zipcode | Phone Number | | Organization | | | | + +---------+ + + | [facility] | | | | + +---------+ + + POC Glucose (02/15/2019 10:39 AM PST) + + + + + + | Component | Value | Ref Range | Performed | Pathologist | | | | | At | Signature | + + + + + + | Glucose, | 83Comment: Testing | 65 - 99 mg/dL | [facility] | | | POC | performed at [facility];[address] | | LABORATORY | | | | [address];[place] | | | | | | [address] | | | | + + + + + + + + | Specimen | + + | | + + + + + + + | Performing | Address | City/State/Zipcode | Phone Number | | Organization | | | | + + + + + | [facility] | [address] | [place] [address] | [phone] | + + + + + documented in this encounter Visit Diagnoses + + | Diagnosis | + + | 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 02/15/19 at | | PM PST | ies | | | | 1315, For 1 dose | | | | | | + +--------+ + +------+------+ +---+---+ | | | +---+---+ documented in this encounter"
--- OUTSIDE RECORDS SUMMARY | ~2019-10-19 | XMS | Encounter Summary ---
Demographics + + + | Address | [address] | | | [place] [address] | + + + | Home Phone [...] Providers + +------+ + | Care Survey Chief Name | Role | Phone | [...] Otolaryngolog | Diagnoses | Sid, | Virgilio uBck, | | | | y | Nasal | Aamir Keller | [address] | | | | | septal | [address] | Francesco Agosto | | | | | defect | [address] | [address] | | | | | Procedures | [place], [place] | [place], [place] | | | | | CONSULT TO | [address] | [address] | | | | | ENT / FACIAL | Phone: | Phone: | | | | | PLASTIC | [phone] | [phone] | | | | | SURGERY | Fax: | Fax: | | | | | | [phone] | [phone] | +--------+--------+ + + + + Encounter [...] | | | Khadijah | [address] [place], | | | | | Services at [facility] | [place] [address] | | | | | [address] | | | | | | [facility] | | | | | | and Healing, | | | | | | Building , | | | | | | Floor [place], [place] | | | | | | [address] | | | | | | [phone] | | | +--------+---------+ + + + [...] BTL Allergies: nkda Social History: Lives in [place]. Past smoking history, none now. No alcohol [...] wishes to sc hedule. Jose Olivia MD Rotary Envelope Machine Operator Facial Plastic and Reconstructive Surgery Department of Otolaryngology/Head and Neck Surgery [employer] [facility] [employer] Email - [email or web address] documented in this encounter Plan of Treatment Not on filedocumented as of this encounter Visit Diagnoses + + | Diagnosis | + + | Nasal septal defect - Primary Other diseases of nasal cavity and sinuses | + + documented in this encounter"
--- OUTSIDE RECORDS SUMMARY | ~2019-10-19 | XMS | Encounter Summary ---
Demographics + + + | Address | [address] | | | [place] [address] | + + + | Home Phone [...] Providers + +------+ + | Care Electrical Systems Engineer Name | Role | Phone [...] | | 2012 | | Center at [facility] [address] | [address] [facility] [address] | | | | | [facility] | [facility] | | | | | for [facility] and | [place], [place] | | | | | [facility], [place] [address] | [address] | | | | | [place], [place] | [phone] | | | | | [address] | | | | | | [phone] | | | +--------+ + + + [...] Telephone Encounter - Amy Dinh RN - 04/21/2012 5:00 PM PSTRN spoke with patient and reviewed oncology process after surgery and after pathology results are available following surgery to arrange for best plan of care following surgery. Patient will contact RN if furt her questions or concerns. P STTelephone Encounter - Amy Dinh RN - 04/21/2012 12:50 PM PSTRN left message with chano ent returning phone call. RN's contact information provided. elephone Encounter - Michelle Atkins CMA - 04/22/19 13 11:35 AM PSTPt lvm 04/20 @ 11:21 am. She is calling regarding her upcoming surgery. DOS 04/28. Pt would like information about out Oncologist doctors. Pt states she wants to do some research/ getting ready for surgery. We wants to research the gallbladder cancer providers. Please call pt on her cell TEL [phone] signed by Michelle carmen 04/21/2012 11:38 AM PSTdocumented in this encounter Plan of Treatment Not on filedocumented as of this encounter Visit Diagnoses Not on filedocumented in this encounter"
--- OUTSIDE RECORDS SUMMARY | ~2019-10-19 | XMS | Encounter Summary ---
Demographics + + + | Address | [address] | | | [place] [address] | + + + | Home Phone [...] Team Providers + +------+ + | Care Launchman Name | Role | Phone | + +------+ + | Tomasa Wagner | PCP | | + +------+ + Reason for Visit + +--------+ + | Reason | Onset | Comments | | | Date | | + +--------+ + | Questionnaire | | distress | + +--------+ + | Questionnaire | 06/26/ | | | | 2015 | | + +--------+ + Encounter Details +--------+ + + + + | Date | Type | Department | Care Team | Description | +--------+ + + + + | 06/26/ | Documentati | [facility] | Elva Grey, | Questionnaire | | 2015 | on | Clinics at S | [address] | (distress); | | | | [place] [address] | Questionnaire | | | | [facility] for | [place] [address] | | | | | Health and Healing, | [phone] | | | | | [facility] | | | | | | [place], [place] | | | | | | [address] | | | | | | [phone] | | | +--------+ + + + [...] Telephone Encounter - Latoya Goodson RN - 06/26/2014 7:53 AM PDT Per distress questionnaire submitted by Aura, dated on 06/26/14, the results were evaluat ed and referrals were not indicated. Distress Questionnaire 06/26/2014 Appetite Level 5 Weight Loss 6 Depression 7 Anxiety 7 Concerns about children 6 Insurance/Financial issues 1 Spouse or family concerns 6 Strength issues 3 Memory issues 3 No orders of the defined types were placed in this encounter. documented in this encounter Plan of Treatment Not on filedocumented as of this encounter Visit Diagnoses Not on filedocumented in this encounter"
--- OUTSIDE RECORDS SUMMARY | ~2019-10-19 | XMS | Encounter Summary ---
Demographics + + + | Address | [address] | | | [place] [address] | + + + | Home Phone [...] Author | [facility] | | | and [place] | + + + | Organization | [facility] | | | and [place] | + + + | Address | Unknown | + + + | Phone | Unavailable | + + + Support + + + + + | Name | Relationship | Address | Phone | + + + + + | Poncho Oquendo | ECON | [address] | | | | | [place] | | | | | [address] | | + + + + + | Marta Upton | ECON | [place] | | | | | [address] | | + + + + + Care Team Providers + +------+ + | Care Chief Ii Dispatcher Name | Role | Phone | + +------+ + | Valeriy Carmona DO | PCP | | + +------+ + Reason for Visit +--------+--------+ + | Reason | Onset | Comments | | | Date | | +--------+--------+ + | Other | 05/24/ | | | | 2017 | | +--------+--------+ + Encounter Details +--------+ + + + + | Date | Type | Department | Care Team | Description | +--------+ + + + + | 05/24/ | Telephone | [facility] | Reinaldo, | Other | | 2017 | | MED CTR RADIATION | Epifanio Soler MD [address] | | | | | ON[facility]OGY CLINIC [address] | [facility] | | | | | [address] | [address] | | | | | [place] [address] | [address] | | | | | [phone] | | | +--------+ + + + [...] Telephone Encounter - Epifanio Najera MD - 05/24/2017 12:39 PM PDTDiscussed manageme nt with Dr. Hassan. Electronically signed by: Epifanio Najera MD 05/24/2017 12:40 elephone Jo Ann chaves - Debra Tran - 05/24/2017 12:24 PM PDTDr. Najera: Please call Latoya alva @ [phone]. She is the hospitalist at [facility]. documented in this encounter Plan of Treatment +--------+---------+ + + + | Date | Type | Specialty | Care Team | Description | +--------+---------+ + + + | 10/29/ | Office | Urology | Pedro Green, | | | 2019 | Visit | | DO [address] | | | | | | [place] [address] | | | | | | [phone] | | | | | | | | +--------+---------+ + + + documented as of this encounter Visit Diagnoses Not on filedocumented in this encounter"
--- OUTSIDE RECORDS SUMMARY | ~2019-10-19 | XMS | Encounter Summary ---
Demographics + + + | Address | [address] | | | [place] [address] | + + + | Home Phone [...] Author | [facility] | | | and [place] | + + + | Organization | [facility] | | | and [place] | + + + | Address | Unknown | + + + | Phone | Unavailable | + + + Support + + + + + | Name | Relationship | Address | Phone | + + + + + | Poncho Oquendo | ECON | [address] | | | | | [place] | | | | | [address] | | + + + + + | Marta Upton | ECON | [place] | | | | | [address] | | + + + + + [...] | [address] | [facility] | | | | | [place], [place] | [address] [place] | | | | | [address] | [address] | | | | | [phone] | | | +--------+ + + + [...] [place] | | | | | | [facility] [address] | | | | | | [phone] | | | | | | | | +--------+---------+ + + + documented as of this encounter Visit Diagnoses Not on filedocumented in this encounter
--- OUTSIDE RECORDS SUMMARY | ~2019-10-19 | XMS | Encounter Summary ---
Demographics + + + | Address | [address] | | | [place] [address] | + + + | Home Phone [...] | Author | [facility] | | | and [place] | + + + | Organization | [facility] | | | and [place] | + + + | Address | Unknown | + + + | Phone | Unavailable | + + + Support + + + + + | Name | Relationship | Address | Phone | + + + + + | Poncho Oquendo | ECON | [address] | | | | | [place] | | | | | [address] | | + + + + + | Marta Upton | ECON | [place] | | | | | [address] | | + + + + + Care Team Providers + +------+ + | Care Atm Technician Name | Role | Phone | [...] W | | | | | | [place], | | | | | | [place] [address] | | | | | | [phone] | | | +--------+ + + + [...] [place] | | | | | | [place] [address] | | | | | | [phone] | | | | | | | | +--------+---------+ + + + documented as of this encounter Visit Diagnoses Not on filedocumented in this encounter"
--- OUTSIDE RECORDS SUMMARY | ~2019-10-19 | XMS | Encounter Summary ---
Demographics + + + | Address | [address] | | | [place] [address] | + + + | Home Phone [...] + | Poncho Oquendo | ECON | [address] | | | | | [place] | | | | | [address] | | + + + + + | Marta Upton | ECON | [place] | | | | | [address] | | + + + + + Care Team Providers + +------+ + | Care Citizenship Teacher Name | Role | Phone | [...] + + | 11/29/ | Anesthesia | [facility] | Roger Callaway MD | | | 2018 | [facility] | [address] | | | | | OPERATING [address] | [place] [address] | | | | | [address] | [phone] | | | | | [place], [place] | | | | | | [address] | Cass Harris, | | | | | [phone] | MD [address] | | | | | | [place] [address] | | | | | | [phone] | | | | | | | | +--------+ + + + + Anesthesia Record + + + + + | Procedure Name | Responsible | Anesthesia Start | Anesthesia Stop Time | | | Anesthesiologist | Time | | + + + + + | CYSTOSCOPY URETERAL | Roger Callaway MD | 11/29/18 1329 | 11/29/18 1405 | | STENT stent removal | | [...] 11/29/18 1550 by | | eral | [id number] catheter system; | Kim Denson RN | [...] EVALUATION Aura Upton 58 y.o. female 1960 [id number] Procedure(s) CYSTOSCOPY URETERAL STENT stent removal and [...] signed by Cass Harris MD 11/29/2018 14:12 [facility] Cass Harris MD at 019 2:12 PM PDTAnesthesia Preprocedure Evaluation - Cass Harris MD - 11/29/2018 1: 13 PM PDT ANESTHESIA PREANESTHESIA EVALUATION Aura Upton 58 y.o. female 1960 [id number] Procedure(s): CYSTOSCOPY URETERAL STENT stent removal and [...] NOTE Aura Upton 58 y.o. female 1960 [id number] CYSTOSCOPY URETERAL STENT stent removal and replacement [...] receiving team. Cass Harris MD 11/29/2018 14:10 [facility] signed by Cass Harris MD at 019 2:10 PM PDTdocumented in this encounter Plan of Treatment +--------+---------+ + + + | Date | Type | Specialty | Care Team | Description | +--------+---------+ + + + | 10/29/ | Office | Urology | Pedro Green, | | | 2019 | Visit | | DO [address] [facility] | | | | | | [place] [address] | | | | | | [phone] | | | | | | | [...]
--- OUTSIDE RECORDS SUMMARY | ~2019-10-19 | XMS | Encounter Summary ---
Demographics + + + | Address | [address] | | | [place] [address] | + + + | Home Phone | | + + + | Preferred Language | Unknown | + + + | Marital Status | Single | + + + | Muslim Affiliation | NON | + + + [...] Providers + +------+ + | Care Supervisor [place] Name | Role | Phone | + +------+ + | Tomasa Wagner | PCP | | + +------+ + Reason for Visit + + + | Reason | Comments | + + + | Medical Records | [facility] OUT[facility] REC[facility] 03/18/14 OV Summary | | Review | | + + + Encounter Details +--------+ + + + + | Date | Type | Department | Care Team | Description | +--------+ + + + + | 03/22/ | Abstract | Digestive Health | Tai Stanton, | Medical Records | | 2015 | | [place] [address] | [address] [facility] | Review ([facility] - | | | | [facility] | [facility] | OUTSIDE RECORDS | | | | for Health and | [place], [place] | 03/18/14 OV Summary) | | | | [facility] | [address] | | | | | [place], [place] | [phone] | | | | | [address] | | | | | | [phone] | | | +--------+ + + + [...]
--- OUTSIDE RECORDS SUMMARY | ~2019-10-19 | XMS | Encounter Summary ---
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 | MD [address] | [place], | | | | | (HCC) | [address] | [place] [address] | | | | | Procedures | [address] | Phone: | | | | | [place] NORMAL | [place], | [phone] | | | | | [place] | [place] [address] | Fax: | | | | | SOLUTION | Phone: | [phone] | | | | | INFUS, [address] | [phone] | | | | | | ML [place] | Fax: | | | | | | NORMAL | [phone] | | | | | | [place] | | | | | | | SOLUTION | | | | | | | INFUS, 250 | | | | | | | ML TN | | | | | | | STERILE | | | | | | | WATER/SALINE | | | | | | | , 10 ML TN | | | | | | | CHEMOTHER, | | | | | | | IV PUSH,EA | | | | | | | ADD DRUG TN | | | | | | | CHEMOTHER, | | | | | | | IV INFUSION, | | | | | | | 1 HR TN | | | | | | | CHEMOTHER, | | | | | | | IV INFUSION, | | | | | | | EA HR TN | | | | | | | CHEMOTHER,NO | | | | | | | N-HORMONE | | | | | | | ANTI-NEOPL, | | | | | | | SUB-Q/IM TN | | | | | | | CHEMOTHER | | | | | | | HORMON | | | | | | | ANTINEOPL | | | | | | | SUB-Q/IM TN | | | | | | | INJECTION, | | | | | | | FAMOTIDINE, | | | | | | | 20 MG TN | | | | | | | DIPHENHYDRAM | | | | | | | INE HCL | | | | | | | INJECTIO, 50 | | | | | | | MG TN | | | | | | | INJ., | | | | | | | APREPITANT, | | | | | | | 1 MG TN | | | | | | | ORAL | | | | | | | DEXAMETHASON | | | | | | | E, .25 MG | | | | | | | TN LORAZEPAM | | | | | | | INJECTION, | | | | | | | 2 MG TN | | | | | | | HYDROMORPHON | | | | | | | E 250 MG TN | | | | | | | CARBOPLATIN | | | | | | | INJECTION, | | | | | | | 50 MG TN IN | | | | | | | GEMCITABINE | | | | | | | HCL NOS | | | | | | | 200MG TN | | | | | | | ADRENALIN | | | | | | | EPINEPHRINE | | | | | | | INJECT, .1 | | | | | | | MG TN | | | | | | | METHYLPREDNI | | | | | | | SOLONE | | | | | | | INJECTION, | | | | | | | 125 MG TN | | | | | | | ALBUTEROL | | | | | | | COMP UNIT, 1 | | | | | | | MG TN | | | | | | | ALBUTEROL | | | | | | | COMP CON, 1 | | | | | | | MG | | | +--------+--------+ + + + + Encounter Details +--------+ + + + + | Date | Type | Department | Care Team | Description | +--------+ + + + + | 07/04/ | Hospital | [facility] | Reinaldo, | Gallbladder cancer, | | 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 | Epifanio Soler MD [address] | carcinoma (HCC) | | | | INFUSION [address] | [facility] | (Primary Dx) | | | | [place], | [address] [place], [place] | | | | | [place] [address] | [address] | | | | | [phone] | | | +--------+ + + + [...] + + + | Blood Pressure | 114/69 | 07/05/2019 9:29 AM | | | | | PDT | | + + + + + | Pulse | 97 | 07/05/2019 9:29 AM | | | | | PDT | | + + + + + | Temperature | 36.8 C (98.2 F) | 07/05/2019 9:29 AM | | | | | PDT | | + + + + + | Respiratory Rate | 16 | 07/05/2019 9:29 AM | | | | | PDT | | + + + + + | Oxygen Saturation | 97% | 07/05/2019 9:29 AM | | | | | PDT [...] | 0 | 06/10/19 | | | (DECADRON) 4 mg | mouth2 times | | | 20 | | | tablet | dailyFor 2 days | | | | | | | after chemotherapy | | | | | + + [...] + +---------+ + + | fentaNYL | Place 1 patch onto | | 0 | 07/04/19 | | | (DURAGESIC) 100 | the skinevery 72 | | | 20 | | | mcg/hr | hours | | | | | + + + +---------+ + + | GRANIX 300 | | | 0 | 03/06/19 | | | MCG/0.5ML injection | | | | 19 | | + + + +---------+ + + | | take 1 tablet by | | 0 | /20 | | | HYDROcodone-acetamin | mouth every [...] 1 spray into | | 0 | // | | | 4 mg/nasal spray | [...] documented as of this encounter Progress Notes Liz Jordan RN - 07/05/2019 12:01 PM PDTDc/d amb with self. Has return appts for [place]. rumbuMilly santizo RN - 07/05/2019 10:00 AM PDTEnergy level: lower energy today, she did have hydrati on yesterday and thinks that may have helped. Fever or chills: none Appetite: taking some food by mouth, also on tpn. Nausea and/or vomiting: nausea is what helps her to know to drain g-tube. Bowels: bowel movements 2-3 times per day, becoming more solid everyday. Numbness and tingling: none Bleeding or bruising: none Karnofsky: 80 Nurses notes: Here for chemo infusion today. She does mention today that it has been a roug h last month. She was in the hospital for bowel obstruction and C. Diff. She has finished he r treatments for this and now is trying to heal. documented in this encounter Plan of Treatment +--------+---------+ + + + | Date | Type | Specialty | Care Team | Description | +--------+---------+ + + + | 10/29/ | Office | Urology | Pedro Green, | | 2019 | Visit | | DO Vaishali HIGHTOWER | | | | | | [place] [address] | | | | | | [phone] | | | | | | | [...] | | | + +--------+ +--------+------+------+ | aprepitant (CINVANTI) injection | Given | 07/05/19 | 130 mg | | | | 130 mg 130 mg, IV Push, ONCE, | | 20 10:09 | | | | | Adriana 07/05/19 at 0945, For 1 dose, | | AM PDT | | | | | Administer slowly over 2 minutes, | | | | | | | | | | | | | + +--------+ +--------+------+------+ +---+---+ | | | +---+---+ + +---------+ +--------+-------+---+ | CARBOplatin (PARAPLATIN) 170 mg | New Bag | 07/05/19 | 170 mg | 534 | | | in sodium chloride 0.9% 250 mL | | 20 11:12 | | mL/hr | | | infusion 170 mg (Target AUC = | | AM PDT | | | | | 2), Intravenous, Administer over | | | | | | | 30 Minutes, ONCE, Adriana 07/05/19 at | | | | | | | 1015, For 1 dose, Chemotherapy: | | | | | | | Use appropriate handling | | | | | | | precautions., | | | | | | + +---------+ +--------+-------+---+ +---+---+ | | | +---+---+ + +-------+ +-------+---+---+ | diphenhydrAMINE (BENADRYL) | Given | 07/05/19 | 25 mg | | | | injection 25 mg 25 mg, | | 20 10:04 | | | | | Intravenous, ONCE, Adriana 07/05/19 at | | AM PDT | | | | | 0945, For 1 dose | | | | | | + +-------+ +-------+---+---+ +---+---+ | | | +---+---+ + +-------+ +-------+---+---+ | famotidine (PEPCID) injection | Given | 07/05/19 | 40 mg | | | | 40 mg 40 mg, Intravenous, ONCE, | | 20 9:59 | | | | | Adriana 07/05/19 at 0945, For 1 dose, | | AM PDT | | | | | Dilute 2 mL of famotidine with 8 | | | | | | | mL of normal saline to a final | | | | | | | concentration of 2 mg/mL. | | | | | | | Administer ordered dose over a | | | | | | | period of at least 2 minutes., | | | | | | + +-------+ +-------+---+---+ +---+---+ | | | +---+---+ + +---------+ +--------+--------+---+ | gemcitabine (GEMZAR) 865 mg in | New Bag | 07/05/19 | 865 mg | 545.5 | | | sodium chloride 0.9% 250 mL | | 20 10:36 | | mL/hr | | | infusion 865 mg (500 mg/m2 | | AM PDT | | | | | 1.73 m2 Treatment plan recorded | | | | | | | BSA), Intravenous, Administer | | | | | | | over 30 Minutes, ONCE, [facility] | | | | | | | 07/05/19 at 1045, For 1 dose, | | | | | | | Chemotherapy: Use appropriate | | | | | | | handling precautions. Do not | | | | | | | refrigerate., | | | | | | + +---------+ +--------+--------+---+ +---+---+ | | | +---+---+ + +-------+ +-------+---+---+ | heparin 100 units/mL flush | Given | 07/05/19 | 500 | | | | injection 500 Units 500 Units ( | | 20 11:54 | Units | | | | mL), Intracatheter, PRN, Line | | AM PDT | | | | | Care, Starting [facility] 07/05/19 at | | | | | | | 0922 | | | | | | + +-------+ +-------+---+---+ +---+---+ | | | +---+---+ + +-------+ +------+---+---+ | HYDROmorphone (DILAUDID) | Given | 07/05/19 | 1 mg | | | | injection 1 mg 1 mg, | | 20 11:51 | | | | | Intravenous, EVERY 1 HOUR PRN, | | AM PDT | | | | | Pain, Starting [facility] 07/05/19 at | | | | | | | 0922 | | | | | | + +-------+ +------+---+---+ +-------+ +------+---+---+ | Given | 07/05/19 | 1 mg | | | | | 20 9:52 | | | | | | AM PDT | | | | +-------+ +------+---+---+ +---+---+ | | | +---+---+ + +---------+ +------+--------+---+ | ondansetron 8 mg, dexamethasone | New Bag | 07/05/19 | 8 mg | 217.6 | | | (DECADRON) 4 mg in sodium | | 20 10:16 | | mL/hr | | | chloride 0.9% 50 mL IVPB 8 mg, | | AM PDT | | | | | Intravenous, Administer over 15 | | | | | | | Minutes, ONCE, [facility] 07/05/19 at | | | | | | | 0945, For 1 dose | | | | | | + +---------+ +------+--------+---+ +---+---+ | | | +---+---+ documented in this encounter"
--- OUTSIDE RECORDS SUMMARY | ~2019-10-19 | XMS | Encounter Summary ---
Demographics + + + | Address | [address] | | | [place] [address] | + + + | Home Phone [...] | + + + + + | Pocnho Oquendo | ECON | [address] | | | | | [place] | | | | | [address] | | + + + + + | Marta Upton | ECON | [place] | | | | | [address] | | + + + + + Care Team Providers + +------+ + | Care Hose Maker Name | Role | Phone | [...] + + | 09/19/ | Telephone | [facility] | Reinaldo, | Other | | 2014 | | MED CTR MEDICAL | Chad Soler MD [address] | | | | | [facility] | [facility] | | | | | [address] | [address] [place], [place] | | | | | [place] [address] | [address] | | | | | [phone] | | | +--------+ + + + [...] - 09/19/2014 2:50 PM PDTOrders faxed to [facility] as requested. Confirmation of fax received. Will contact patient about thi s. elephone Chad Lynch MD - 09/19/2014 2:27 PM PDTOkay to have blood drawn in [facility] tomorrow, send lab slip to [facility]. CHAD RIGGINS MD elephone Tila Pro - 09/19/2014 2:08 PM PDTAura is concerned that her blood count is too low for chemo treatment tomorrow and would like to see if she can get her blood draw n early tomorrow morning down in [place] before her treatment and she would like a call [facility] Dr. Riggins thank you. 2:1 8 PM PDTdocumented in this encounter Plan of Treatment +--------+---------+ + + + | Date | Type | Specialty | Care Team | Description | +--------+---------+ + + + | 10/29/ | Office | Urology | Pedro Green, | | | 2019 | Visit | | DO [address] | | | | | | [place] [address] | | | | | | [phone] | | | | | | | [...]
--- OUTSIDE RECORDS SUMMARY | ~2019-10-19 | XMS | Encounter Summary ---
Demographics + + + | Address | [address] | | | [place] [address] | + + + | Home Phone [...] Providers + +------+ + | Care Supervisor Rides Name | Role | Phone | + [...] | 2015 | Encounter | [facility] | [address] | Appointment | | | | [address] | Surendra Velma | | | | | [address] | [place], [place] | | | | | Pavilion, [address] [place] [address] | [address] | | | | | [place], [place] | [phone] | | | | | [address] | | | | | | [phone] | | | +--------+ + + + [...]
--- OUTSIDE RECORDS SUMMARY | ~2019-10-19 | XMS | Encounter Summary ---
Demographics + + + | Address | [address] | | | [place] [address] | + + + | Home Phone [...] Team Providers + +------+ + | Care Hydroelectric Plant Electrician Name | Role | Phone | + +------+ + | Tomasa Wagner | PCP | | + +------+ + Reason for Visit + + + | Reason | Comments | + + + | Medical Records | [facility] OUTSIDE RECORDS 03/18/14 OV Summary | | Review | | + + + Encounter Details +--------+ + + + + | Date | Type | Department | Care Team | Description | +--------+ + + + + | 03/22/ | Abstract | Digestive Health | Tai Stanton, | Medical Records | | 2015 | | [place] [address] | [address] [facility] | Review ([facility] - | | | | [facility] | [facility] | OUTSIDE RECORDS | | | | for Health and | [place], [place] | 03/18/14 OV Summary) | | | | [facility] [address] | [address] | | | | | [place], [place] | [phone] | | | | | [address] | | | | | | [phone] | | | +--------+ + + + [...]
--- OUTSIDE RECORDS SUMMARY | ~2019-10-19 | XMS | Encounter Summary ---
Demographics + + + | Address | [address] | | | [place] [address] | + + + | Home Phone [...] + + | Author | [facility] | | | and [place] | + + + | Organization | [facility] | | | and [place] | + + + | Address | Unknown | + + + | Phone | Unavailable | + + + Support + + + + + | Name | Relationship | Address | Phone | + + + + + | Poncho Oquendo | ECON | [address] | | | | | [place] | | | | | [address] | | + + + + + | Marta Upton | ECON | [place] | | | | | [address] | | + + + + + Care Team Providers + +------+ + | Care Electrical Discharge Machine Operator Name | Role | Phone [...] | | | | 10/14/ | | [place], [place] | | | | 2012 | | [address] | | | | | | [phone] | | | +--------+ + + + [...] | | | | | [place] [address] | | | | | | [phone] | | | | | | | [...] [address] | [place] | [phone] | | [facility] | | [address] | | | - LABORATORY | | | | + + + + + | [facility] | [address] | [place] | | | [facility] | | [address], [facility] | | | - [...] | (formerly Mahad) Advia | | [facility] | | | | Centaur [...] | | | [address], [place] | | | | | | [address] CLIA: | | | | | | [id number] | | | | + + + + + + + + | Specimen | + + | | + + + + + + + | Performing | Address | City/State/Zipcode | Phone Number | | Organization | | | | + + + + + | [facility] | [address] | [place], [place] | [phone] | | [facility] | | [address] | | | - LABORATORY | | | | + + + + + | [facility] | [address] | [place], [place] | | | [facility] | | [address], [facility] | | | - [...] | | Protein | | | [facility] | | [...] [address] | [place] | [phone] | | [facility] | | [address] | | | - LABORATORY | | | | + + + + + | [facility] | [address] | [place] | | | [facility] | | [address] | | | - LABORATORY | [...] + + + + + | [facility] | [address] | [place], [place] | [phone] | | [facility] | | [address] | | | - LABORATORY | | | | + + + + + | [facility] | [address] | [place], [place] | | | [facility] | | [address] [place] [address] | | | - LABORATORY | | [...] ST. | [address] | [place], [place] | [phone] | | [facility] | | [address] | | | - LABORATORY | | | | + + + + + | [facility] | [address] | [place], [place] | | | [facility] | | [address], [facility] | | | - [...] | | | | | [place], [place] | | | | | | [address] MDAHUIA: | | | | | | [id number] | | | | + + + + + + + + | Specimen | + + | | + + + + + + + | Performing | Address | City/State/Zipcode | Phone Number | | Organization | | | | + + + + + | [facility] | [address] | [place] | [phone] | | [facility] | | [address] | | | - LABORATORY | | | | + + + + + | [facility] | [address] | [place] | | | [facility] | | [address], [facility] | | | - [...] + | [facility] | [address] | [place] | [phone] | | [facility] | | [address] | | | - LABORATORY | | | | + + + + + | [facility] | [address] | [place], [place] | | | [facility] | | [address] | | | - LABORATORY | [...] + | [facility] | [address] | [place], [place] | [phone] | | [facility] | | [address] | | | - LABORATORY | | | | + + + + + | [facility] | [address] | [place], [place] | | | [facility] | | [address] [place] [address] | | | - LABORATORY | | [...] [address] | [place] | [phone] | | [facility] | | [address] | | | - LABORATORY | | | | + + + + + | [facility] | [address] | [place] | | | [facility] | | [address], [facility] | | | - [...] | (formerly Mahad) Advia | | [facility] | | | | Centaur [...] [place] | | | | | | [address] AL[place]IR[place]: | | | | | | [id number] | | | | + + + + + + + + | Specimen | + + | | + + + + + + + | Performing | Address | City/State/Zipcode | Phone Number | | Organization | | | | + + + + + | [facility] | [address] | [place] | [phone] | | [facility] | | [address] | | | - LABORATORY | | | | + + + + + | [facility] | [address] | [place] | | | [facility] | | [address], [facility] | | | - [...] 10 | 7 - 18 mg/dL | [facility] | | | | | | [facility] | | | | | | MEDICAL | | | | | | CENTER - | | | | | | LABORATORY | | + + + + + + | Creatinine | 0.88 | 0.60 - 1.30 | [facility] | | | | | mg/dL | [facility] | | | | | | MEDICAL | | | | | | CENTER - | | | | | | LABORATORY | | + + + + + + | Estimated | >60Comment: For | >60 mL/min/A | [facility] | | | GFR | -Americans, | [...] + | [facility] | [address] | [place] | [phone] | | [facility] | | [address] | | | - LABORATORY | | | | + + + + + | [facility] | [address] | [place] | | | [facility] | | [address] | | | - LABORATORY | [...] + + | Performing | Address | City/[facility] | Phone Number | | Organization | | | | + + + + + | [facility] | [address] | [place], [place] | [phone] | | [facility] | | [address] | | | - LABORATORY | | | | + + + + + | [facility] | [address] | [place], [place] | | | [facility] | | [address], [facility] | | | - [...] [address] | [place] | [phone] | | [facility] | | [address] | | | - LABORATORY | | | | + + + + + | [facility] | [address] | [place], [place] | | | [facility] | | [address], [facility] | | | - [...] | | (formerly Mahad) Advia | | [facility] | | | | Centaur immunoassay [...] | | | | [place] [place] | | | | | | [address] CLIA: | | | | | | [id number] | | | | + + + + + + + + | Specimen | + + | | + + + + + + + | Performing | Address | City/State/Zipcode | Phone Number | | Organization | | | | + + + + + | [facility] | [address] | [place] | [phone] | | [facility] | | [address] | | | - LABORATORY | | | | + + + + + | [facility] | [address] | [place] | | | [facility] | | [address] | | | - LABORATORY | [...] 8 | 7 - 18 mg/dL | [facility] | | | | | | [facility] | | | | | | MEDICAL | | | | | | CENTER - | | | | | | LABORATORY | | + + + + + + | Creatinine | 0.84 | 0.60 - 1.30 | [facility] | | | | | mg/dL | [facility] | | | | | | MEDICAL | | | | | | CENTER - | | | | | | LABORATORY | | + + + + + + | Estimated | >60Comment: For | >60 mL/min/A | [facility] | | | GFR | -Americans, | [...] + | [facility] | [address] | [place] | [phone] | | [facility] | | [address] | | | - LABORATORY | | | | + + + + + | [facility] | [address] | [place], [place] | | | [facility] | | [address], [facility] | | | - [...] [address] | [place] | [phone] | | [facility] | | [address] | | | - LABORATORY | | | | + + + + + | [facility] | [address] | [place] | | | [facility] | | [address] | | | - LABORATORY | | | | + + + + + documented in this encounter Visit Diagnoses Not on filedocumented in this encounter"
--- OUTSIDE RECORDS SUMMARY | ~2019-10-19 | XMS | Encounter Summary ---
Demographics + + + | Address | [address] | | | [place] [address] | + + + | Home Phone [...] | [facility] | | | and [place] | + + + | Organization | [facility] | | | and [place] | + + + | Address | Unknown | + + + | Phone | Unavailable | + + + Support + + + + + | Name | Relationship | Address | Phone | + + + + + | Poncho Oquendo | ECON | [address] | | | | | [place] | | | | | [address] | | + + + + + | Marta Upton | ECON | [place] | | | | | [address] | | + + + + + Care Team Providers + +------+ + | Care Network Project Manager Name | Role | Phone [...] | | Personal | Reinaldo, | [place] | | | | | 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, | [place], | | | | | 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[address] | [place] [address] | | | | | neoplasm of | RIC[place]DA [place]QU[place] | Phone: | | | | | other site | [address] | [phone] | | | | | in | [place], | Fax: | | | | | gastrointest | [place] [address] | [phone] | | | | | inal tract | Phone: | | | | | | Procedures | [phone] | | | | | | CT Abdomen | Fax: | | | | | | Pelvis w | [phone] | | | | | | Contrast [...] | | Personal | Reinaldo, | [place] | | | | | 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, | [place], | | | | | 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 | RICARDA LINDQUIST | Phone: | | | | | other site | [address] | [phone] | | | | | in | [place], | Fax: | | | | | gastrointest | [place] [address] | [phone] | | | | | inal tract | Phone: | | | | | | Procedures | [phone] | | | | | | CT Abdomen | Fax: | | | | | | Pelvis w | [phone] | | | | | | Contrast | | | +--------+--------+ + + + + Encounter Details +--------+ + + + + | Date | Type | Department | Care Team | Description | +--------+ + + + + | 09/16/ | Hospital | [facility] | Reinaldo, | 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 Dictated and Signed by: Axel Blas | | MD Santosh Electronically signed: 09/16/2014 [...]
--- OUTSIDE RECORDS SUMMARY | ~2019-10-19 | XMS | Encounter Summary ---
Demographics + + + | Address | [address] | | | [place] [address] | + + + | Home Phone [...] + | Poncho Oquendo | ECON | [address] | | | | | [place] | | | | | [address] | | + + + + + | Marta Corbin | ECON | [place] | | | | | [address] | | + + + + + Care Team Providers + +------+ + | Care Machine Puller And Laster Name | Role | Phone | + +------+ + PCP | Unavailable | + +------+ + Encounter Details +--------+ + + + + | Date | Type | Department | Care Team | Description | +--------+ + + + + | 01/15/ | Hospital | [facility] | | | | 2012 | Encounter | MED CTR XRAY [address] | | | | | | [place] | | | | | | [place] [address] | | | | | | [phone] | | | +--------+ + + + [...] | | | | | [place] [address] | | | | | | [phone] | | | | | | | | +--------+---------+ + + + documented as of this encounter Procedures + +--------+ + + + | Procedure Name | Priori | Date/Time | Associated Diagnosis | Comments | | | ty | | | | + +--------+ + + + | CT CHEST ABDOMEN | Routin | 01/15/2013 | | Results for this | | PELVIS W CONTRAST | e | 11:40 AM | | procedure are in the | | | | PST | | results section. | + +--------+ + + + documented in this encounter Results CT Chest Abdomen Pelvis w Contrast (01/15/2013 11:40 AM PST) + + | Specimen | + + | | + + + + + | Narrative | Performed At | + + + | [facility] | [facility] | | Department [address] | [facility] | | [ rep ct [address]] [ rep [facility] | | st zip] Signed | - IMAGING | | | | | Patient Name: AURA CORBIN Physician: | | | [id number].[id number] : 1960 Age: 52 Sex: F Unit #: [id number] | | | Exam Date: 01/15/13 Location: [facility] | | | Report #: [id number] Page: | | | %(RAD)RES..mtdd.print.filter("pg") of %(RAD) | | | RES..mtdd.print.filter("tpg") | | | | | | Accession Number: [id number] | | | CHEST, ABDOMEN, PELVIS CT WITH CONTRAST CLINICAL | | | HISTORY: 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 COMPARISON: CT chest, abdomen, and pelvis | | | 04/12/2012. CT treatment planning from 09/01/2012. | | | TECHNIQUE: Imaging is performed through the chest, abdomen, and | | | pelvis with oral contrast and following the intravenous injection of | | | 85 mL of Isovue-370. FINDINGS: CHEST: The | | | lungs remain clear. No focal parenchymal disease. No significant | | | pulmonary nodules. No pleural effusion or pneumothorax. The | | | heart and great vessels are unremarkable. There is no mediastinal | | | or hilar lymphadenopathy. There is a calcified lymph node in the | | | right hilum suggesting prior granulomatous disease. | | | ABDOMEN/PELVIS: There are extensive postsurgical changes in the | | | right upper quadrant. Compared to , there has been | | | interval surgery indicated by several new clips in the estevan hepatis | | | and in the region of the liver margin along the posterior aspect of | | | the inferior vena cava. The postsurgical- appearing collection of | | | hypodense material along the gallbladder fossa has mostly resolved. | | | There are new somewhat tubular elongated areas of hypodensity more | | | anteriorly. These are located along the undersurface of the liver | | | and appear to be intraparenchymal. This area measures about 11.5 mm | | | in depth and approximately 3.65 cm in length and 1.6 cm | | | transversely. The common bile duct does not appear to be dilated. | | | The left adrenal gland has no mass within it. The | | | remnant portion of the right adrenal gland also appears to be | | | without a mass. The spleen and pancreas are intact and are | | | unremarkable. The kidneys are symmetrically enhancing. | | | No renal mass or cyst. No obstructive uropathy. The bladder | | | is partially urine distended. It is unremarkable. No | | | gastrointestinal tract obstruction. The appendix is normal. There | | | is mild diverticulosis in the sigmoid. The uterus and adnexa are | | | unremarkable. No free fluid. No free air. No peritoneal or | | | retroperitoneal adenopathy. No aneurysmal dilatation of the | | | abdominal aorta. There are no lytic or blastic bone lesions. | | | IMPRESSION: 1. POSTOPERATIVE CHANGES IN THE RIGHT | | | UPPER QUADRANT CONSISTENT WITH CHOLECYSTECTOMY. SOME OF THE LOW | | | DENSITY IN THIS REGION PREVIOUSLY ATTRIBUTABLE TO POSTSURGICAL CHANGE, | | | IN PARTICULAR IN THE GALLBLADDER FOSSA, HAS NEARLY RESOLVED. | | | HOWEVER, THERE IS A NEW HYPODENSE REGION IN A DIFFERENT PORTION OF | | | THE LIVER ALONG THE UNDERSURFACE OF THE LIVER BUT FELT TO BE | | | INTRAPARENCHYMAL. IF THERE HAS BEEN AN ABSENCE OF INTERVAL | | | SURGICAL CHANGE, THIS IS CONCERNING ALTHOUGH NONSPECIFIC. ITS | | | HOUNSFIELD UNITS SUGGEST COMPLEX MATERIAL OR SOLID MATERIAL. | | | Dictated Date/Time: 01/15/2013 11:40 Transcribed | | | Date/Time: 01/15/2013 13:23 Chemical Worker: | | | <<Signature on File>> | | | Mathieu | | | Emir Brasher MD01/15/13 2112 <Electronically signed by Mathieu Field | | | Anshu LI> Mathieu Brasher MD 01/15/13 1140 | | | Chemical Worker: [employer] Acecnhmqtsgzk33/02/13 1323 | | | Epifanio Najera MD | | + + + + + + + + | Performing | Address | City/State/Zipcode | Phone Number | | Organization | | | | + + + + + | [facility] | [address] | [place] | [phone] | | [facility] | | [address] | | | - IMAGING | | | | + + + + + documented in this encounter Visit Diagnoses Not on filedocumented in this encounter
--- OUTSIDE RECORDS SUMMARY | ~2019-10-19 | XMS | Encounter Summary ---
Demographics + + + | Address | [address] | | | [place] [address] | + + + | Home Phone | | + + + | Preferred Language | Unknown | + + + | Marital Status | Single | + + + | Samaritan Affiliation | NON | + + + [...] Team Providers + +------+ + | Care Operations Management Trainee Name | Role | Phone | + [...] [address] | | | | | | [place], [place] | | | | | | [address] | | | +--------+ + + + [...]
--- OUTSIDE RECORDS SUMMARY | ~2019-10-19 | XMS | Encounter Summary ---
Demographics + + + | Address | [address] | | | [place] [address] | + + + | Home Phone [...] + + + | Author | [facility] | | | and [place] | + + + | Organization | [facility] | | | and [place] | + + + | Address | Unknown | + + + | Phone | Unavailable | + + + Support + + + + + | Name | Relationship | Address | Phone | + + + + + | Poncho Oquendo | ECON | [address] | | | | | [place] | | | | | [address] | | + + + + + | Marta Upton | ECON | [place] | | | | | [address] | | + + + + + Care Team Providers + +------+ + | Care Fireworks Assembler Name | Role | Phone | + +------+ + PCP | Unavailable | + +------+ + Encounter Details +--------+ + + + + | Date | Type | Department | Care Team | Description | +--------+ + + + + | 07/13/ | Hospital | [facility] | | | | 2012 - | Encounter | [facility] CAN[facility] | | | | | | CENTER [address] | | | | 07/14/ | | [place], [place] | | | | 2012 | | [address] | | | | | | [phone] | | | +--------+ + + + [...] | | | | | [place] [address] | | | | | | [phone] | | | | | | | [...] + + + | White Blood | 2.4 (LL)Comment: @VALUE | 4.0 - 11.0 K/uL | [facility] | | | Cells | CONSISTENT WITH PREVIOUS | | [facility] | | | | RESULTS | | MEDICAL | | | | | | CENTER - | | | | | | LABORATORY | | + + + + + + | Red Blood | 4.52 | 3.70 - 5.20 | [...] PROBLEM IS: | REPEATED, CRITICAL | | [facility] | | | | RESULT-PHONE RESULTS [...] [address] | [place] | [phone] | | [facility] | | [address] | | | - LABORATORY | | | | + + + + + | [facility] | [address] | [place] | | | [facility] | | [address], [facility] | | | - [...] 98 | 70 - 109 mg/dL | [facility] [...] 9 | 7 - 18 mg/dL | [facility] | | | | | | [facility] | | | | | | MEDICAL | | | | | | CENTER - | | | | | | LABORATORY | | + + + + + + | Creatinine | 0.89 | 0.60 - 1.30 | [facility] | | | | | mg/dL | [...] | 10.2 | 6.0 - 17.0 | [facility] | [...] + | [facility] | [address] | [place], [place] | [phone] | | [facility] | | [address] | | | - LABORATORY | | | | + + + + + | [facility] | [address] | [place], [place] | | | [facility] | | [address] | | | - LABORATORY | | [...] + | [facility] | [address] | [place] | [phone] | | [facility] | | [address] | | | - LABORATORY | | | | + + + + + | [facility] | [address] | [place] | | | [facility] | | [address] | | | - LABORATORY | | [...] + + + | White Blood | 3.7 (L) | 4.0 - 11.0 K/uL | [facility] | | | Cells | | | [facility] | | | | | | MEDICAL | | | | | | CENTER - | | | | | | LABORATORY | | + + + + + + | Red Blood | 4.42 | 3.70 - 5.20 | [facility] | | | Cells | | M/uL | [facility] | | | | | | [...] + | [facility] | [address] | [place], [place] | [phone] | | [facility] | | [address] | | | - LABORATORY | | | | + + + + + | [facility] | [address] | [place], [place] | | | [facility] | | [address] | | | - LABORATORY | | [...] 3.8 | 3.2 - 5.0 gm/dL | [facility] | | | | | | [facility] | | | | | | MEDICAL | | | | | | CENTER - | | | | | | LABORATORY | | + + + + + + | BUN | 8 | 7 - 18 mg/dL | [facility] | | | | | | [facility] | | | | | | MEDICAL | | | | | | CENTER - | | | | | | LABORATORY | | + + + + + + | Creatinine | 0.72 | 0.60 - 1.30 | [facility] | [...] + | [facility] | [address] | [place] | [phone] | | [facility] | | [address] | | | - LABORATORY | | | | + + + + + | [facility] | [address] | [place], [place] | | | [facility] | | [address] [place] [address] | | | - LABORATORY | | [...] [address] | [place] | [phone] | | [facility] | | [address] | | | - LABORATORY | | | | + + + + + | [facility] | [address] | [place] | | | [facility] | | [address], [facility] | | | - LABORATORY | | | | + + + + + CBC with Differential (06/15/2012 11:49 AM PDT) + + + + + + | Component | Value | Ref Range | Performed | Pathologist | | | | | At | Signature | + + + + + + | MANUAL | NO | | [facility] | | | [facility] | | | [facility] | | [...] + + + | Red Blood | 4.99 | 3.70 - 5.20 | [...] + | [facility] | [address] | [place] | [phone] | | [facility] | | [address] | | | - LABORATORY | | | | + + + + + | [facility] | [address] | [place] | | | [facility] | | [address], [facility] | | | - [...] 102 | 70 - 109 mg/dL | [facility] | | | | [...] | | | Phosphatase | | | [facility] | | [...] | 16.7 | 12 - 20 | [facility] | | | ine Ratio | | | [facility] | | | | | | MEDICAL | | | | | | CENTER - | | | | | | LABORATORY | | + + + + + + | Na | 138 | 136 - 149 mEq/L | [facility] [...] + | [facility] | [address] | [place], [place] | [phone] | | [facility] | | [address] | | | - LABORATORY | | | | + + + + + | [facility] | [address] | [place], [place] | | | [facility] | | [address] [place] [address] | | | - LABORATORY | | [...] + | [facility] | [address] | [place] | [phone] | | [facility] | | [address] | | | - LABORATORY | | | | + + + + + | [facility] | [address] | [place], [place] | | | [facility] | | [address] | | | - LABORATORY | | | | + + + + + documented in this encounter Visit Diagnoses Not on filedocumented in this encounter"
--- OUTSIDE RECORDS SUMMARY | ~2019-10-19 | XMS | Encounter Summary ---
Demographics + + + | Address | [address] | | | [place] [address] | + + + | Home Phone [...] + | Poncho Oquendo | ECON | [address] | | | | | [place] | | | | | [address] | | + + + + + | Marta Upton | ECON | [place] | | | | | [address] | | + + + + + Care Team Providers + +------+ + | Care Sales Service Professional Name | Role | Phone | + +------+ + | No, Physician | PCP | Unavailable | + +------+ + Reason for Visit +--------+--------+ + | Reason | Onset | Comments | | | Date | | +--------+--------+ + | Other | 04/19/ | Labs for Procedure | | | 2020 | | +--------+--------+ + Encounter Details +--------+ + + + + | Date | Type | Department | Care Team | Description | +--------+ + + + + | 04/19/ | Telephone | [facility] | Pedro Green, | Other (Labs for | | 2019 | | UROLOGY [address] | DO [address] | Procedure) | | | | [address] | [place] [address] | | | | | [place], [place] | [phone] | | | | | [address] | | | | | | [phone] | | | +--------+ + + + [...] this encounter Miscellaneous Notes Telephone Encounter - Rani Nguyễn RN - 04/20/2019 9:16 AM PSTIncoming call from roxanna Chavarria, she is currently at [facility] in [place] to get labs done, wanting to know wha t number to fax results to. Gave her our fax number [phone]. Per Aura she missed her preadmissions appointment. Spoke to Lanie at [facility] whom stated at the preadmissions appointm ent, the RN does NOT place orders, advised would need to come from the provider. [facility] will need results of labs faxed to [phone] attn: Tierney elephone Encounter - Ashley Nix - 07/2019 8:50 AM PSTLashae- Gildardo Ochoa, is calling regarding Other (Labs for Procedure) and would like a call back. Additional Call Details: Caller states patient is at [facility] in [place]. Is needi ng the labs for her 04/27/19 procedure. Please fax orders to [phone] as soon as possible . If this is a symptom based call, was patient offered triage? Not Applicable If this is a symptom based call and you were unable to immediately transfer the call to a jaclyn maradiaga baby doctor was caller made aware that if at [...] | | | | | [place] [address] | | | | | | [phone] | | | | | | | | +--------+---------+ + + + documented as of this encounter Visit Diagnoses Not on filedocumented in this encounter"
--- OUTSIDE RECORDS SUMMARY | ~2019-10-19 | XMS | Encounter Summary ---
Demographics + + + | Address | [address] | | | [place] [address] | + + + | Home Phone [...] | [facility] | | | and [place] | + + + | Organization | [facility] | | | and [place] | + + + | Address | Unknown | + + + | Phone | Unavailable | + + + Support + + + + + | Name | Relationship | Address | Phone | + + + + + | Poncho Oquendo | ECON | [address] | | | | | [place] | | | | | [address] | | + + + + + | Marta Upton | ECON | [place] | | | | | [address] | | + + + + + Care Team Providers + +------+ + | Care Slasher Tender Helper Name | Role | Phone | + +------+ + | Valeriy Carmona DO | TAWNYA | | + +------+ + Encounter Details +--------+ + + + + | Date | Type | Department | Care Team | Description | +--------+ + + + + | 05/07/ | Documentati | [facility] | Reinaldo, | | | 2017 | on | [facility] | Epifanio Soler MD [address] | | | | | [facility] [address] | [facility] | | | | | [address] | [address] [place], [place] | | | | | [place] [address] | [id number] | | | | | [phone] | | | +--------+ + + + [...] [address] | | | | | | [place] [address] | | | | | | [phone] | | | | | | | | +--------+---------+ + + + documented as of this encounter Visit Diagnoses + + | Diagnosis | + + | Gallbladder cancer, 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
--- OUTSIDE RECORDS SUMMARY | ~2019-10-19 | XMS | Encounter Summary ---
Demographics + + + | Address | [address] | | | [place] [address] | + + + | Home Phone [...] Team Providers + +------+ + | Care Home Care Scheduler Name | Role | Phone | + [...] [place] | | | | | | [address] | | | | | | [phone] | | | +--------+ + + + [...] + | [facility] | [address] | [place] [address] | | | SAM ALONSO | NEAL [...] + | [facility] | [address] | [place] [address] | | | SERVICES, SAM | NEAL [...] | + + + + + | [facility] | [address] | [place] [address] | | | SERVICES, CORE | [address] | | | + + + + + documented in this encounter Visit Diagnoses Not on filedocumented in this encounter"
--- OUTSIDE RECORDS SUMMARY | ~2019-10-19 | XMS | Encounter Summary ---
Demographics + + + | Address | [address] | | | [place] [address] [...] Team Providers + +------+ + | Care Salesperson Books Name | Role | Phone | + [...] | 2012 | Visit | Center at [facility] [address] | [address] [facility] | care (Primary Dx) | | | | [address] [facility] | [address] | | | | | for Health and | [place], [place] | | | | | [facility] | [address] | | | | | [place], [place] | [phone] | | | | | [address] | | | | | | [phone] | | | +--------+---------+ + + + [...] sooner if she wishes. Tai Stanton M.D. [facility] ([facility]) Professor and Vice-Human Performance Technologist of Surgery [facility] for Pancreatic Disease Research Pancreatic/ HepatoBiliary and Foregut Working Groups Office email: [email or web address] documented in this en counter Plan of Treatment Not on filedocumented as of this encounter Visit Diagnoses + + | Diagnosis | + + | Encounter for wound care - Primary Encounter for other specified aftercare | + + documented in this encounter
--- OUTSIDE RECORDS SUMMARY | ~2019-10-19 | XMS | Encounter Summary ---
Demographics + + + | Address | [address] | | | [place] [address] | + + + | Home Phone [...] + +------+ + | Care Director Of Retail Marketing Name | Role | Phone | + [...] | | | Reconstructive | [address]ma [place] [place], | | | | | Services at [facility] | [place] [address] | | | | | [address] | [phone] | | | | | [facility] | | | | | | and Healing, | | | | | | Building [address]th | | | | | | Floor [place], [place] | | | | | | [address] | | | | | | [phone] | | | +--------+---------+ + + + [...] Surgery Dept. of Otolaryngology/Head and Neck Surgery Replaced By [facility] tel fax email [email or web address] documented in this encounte r Plan of Treatment Not on filedocumented as of this encounter Visit Diagnoses + + | Diagnosis | + + | Perforation of nasal septum - Primary Other diseases of nasal cavity and sinuses | + + documented in this encounter"
--- OUTSIDE RECORDS SUMMARY | ~2019-10-19 | XMS | Encounter Summary ---
Demographics + + + | Address | [address] | | | [place] [address] | + + + | Home Phone [...] Team Providers + +------+ + | Care Counter Stitcher Name | Role | Phone | + +------+ + | Tomasa Wagner | PCP | | + +------+ + Encounter Details +--------+ + + + + | Date | Type | Department | Care Team | Description | +--------+ + + + + | 06/20/ | MyChart | [facility] | Miguel Seymour, | RE: Do I need to | | 2014 | Encounter | [facility] [place] | [address] | continue the Lovenox | | | | [address] | injections? | | | | [address] | [place], [place] | | | | | Alexis, [facility] floor | [address] | | | | | [place], [place] | [phone] | | | | | [address] | | | | | | [phone] | | | +--------+ + + + [...]
--- OUTSIDE RECORDS SUMMARY | ~2019-10-19 | XMS | Encounter Summary ---
Demographics + + + | Address | [address] | | | [place] [address] | + + + | Home Phone [...] Providers + +------+ + | Care Director Visual Name | Role | Phone | + +------+ + | Tomasa Wagner | PCP | | + +------+ + Encounter Details +--------+ + + + + | Date | Type | Department | Care Team | Description | +--------+ + + + + | 10/27/ | Abstract | [facility] | Tai Stanton, | | | 2012 | | Center at [facility] [address] | [address] [facility] | | | | | [facility] | [facility] | | | | | for Health and | [place], [place] | | | | | [facility] [address] [place] [address] | [address] | | | | | [place], [place] | [phone] | | | | | [address] | | | | | | [phone] | | | +--------+ + + + [...]
--- OUTSIDE RECORDS SUMMARY | ~2019-10-19 | XMS | Encounter Summary ---
Demographics + + + | Address | [address] | | | [place] [address] | + + + | Home Phone [...] Team Providers + +------+ + | Care Metal Work Duct Installer Name | Role | Phone | [...] Refill Encounters | | 2013 | | [place] [address] | [place] [address] [facility] | | | | | [facility] | [facility] | | | | | [facility] and | [place], [place] | | | | | [facility] [address] | [address] | | | | | [place], [place] | [phone] | | | | | [address] | | | | | | [phone] | | | +--------+ + + + [...] scale: Pain was not scaled Can you pick[employer] the script if need to or should it be mailed?: Please send to listed phar kinza: [facility] [facility] [place] [address] Patient informed there is a 72 hour refill policy. Patient requests call back when this is complete. Is it alright to leave a detailed message? Yes Pharmacy: Pharmacy Preferences: [facility] documented in this encounte r Plan of Treatment Not on filedocumented as of this encounter Visit Diagnoses Not on filedocumented in this encounter"
--- OUTSIDE RECORDS SUMMARY | ~2019-10-19 | XMS | Encounter Summary ---
Demographics + + + | Address | [address] | | | [place] [address] | + + + | Home Phone [...] Team Providers + +------+ + | Care Husker Operator Name | Role | Phone | [...] + + | 04/28/ | Hospital | [facility] [address] | Cornelia Stanton, | | | 2012 - | Encounter | [facility] Mailcode: | [address] | | | | | [address] | [address] | | | 05/04/ | | [place], | [place], [place] | | | 2012 | | [place] [address] | [address] | | | | | [phone] | [phone] | | | | | | | [...] acute cholecystitis. Her pathology was reviewed at [facility]. She underwent a CT scan, which [...] working on arranging an appointm ent with [facility] Oncology for treatment planning. FINAL PATHOLOGY: [...] diarrhea.During normal business hours please call [facility] [place] dangelo .For 'after hours' URGENT problems please call the [facility] rock crusher operator at and ask for the "Blue [...] Prescriptions sent by mail will take 3 d ays. Prescriptions to be picked up in person will be ready by the next day. It is your responsibility to keep [...] None Your Follow-Up Plan Follow up with [facility] HEMATOLOGY ONCOLOGY [facility]. (Please expect a call from the Oncology clini c in the next several days to schedule an appointment with either Dr. Grey or Dr. Ledesma ) Contact information: [address] [facility] [address] Future Appointments Date & Time Provider Department Dept Phone Center 05/17/2012 11:30 AM CORNELIA STANTON MD [facility] [phone] [facility] Discharging Physician: MARCO ANTONIO BEATTY NP Attending Physician: MD Marco Antonio Mauricio RN, MSN, ER TECH [facility] Blue Surgery Pager# [phone] 9:37 AM 05/04/2012 documented in this enc ounter Discharge Instructions Instructions Lala Hernandez, DANIKA - 05/04/2012Patient Education Materials: Discharge Nurse: LALA HERNANDEZ Date: 05/04/2012 Discharge Time: 10:07 AM AttachmentsThe following attachments cannot be sent through Care Everywhere.Care of Closed Wounds: After Your Visitdocumented in this encounter Progress Notes Marco Antonio Beatty NP - 05/04/2012 12:54 PM PDT Blue Surgery Inpatient Progress Note Hospital Day #6 Author: MARCO ANTONIO BEATTY NP Attending: CORNELIA STANTON MD ID: Maria Elena Corbin Interval Hx: no events overnight. Patient understandably [...] 0659 05/04/12 07 - 05/05/12 0659(Discharged) Shift 3188-8180 2188-0775 1009-6200 Daily Total 0644-5814 7024-9159 5286-8673 Daily Total I N T A K E P.O. 925 669 032 2837 500 500 I.V. 5 10 15 Shift Total 930 989 736 9882 500 500 O U T P U T Urine 1050 0255 393 3653 400 400 Urine 1050 7448 247 1284 400 400 Other Stool 1 1 Shift Total 1050 8176 765 4167 400 400 NET -120 -1090 205 -1005 [...] oob ad mary Assessment: Maria Elena Corbin, NICOLE#6, with Gallbladder cancer S/p Diagnostic laparoscopy with biopsies, intraoperative ultrasound, partial segment 4B and 5 liver resection Plan: 1. S/p liver resection: -incision healing well -tolerating regular diet -+BM -Pathology discussed last night with Dr. Stnaton -will arrange appointment with Oncology as an outpatient 2. Acute post-operative pain: -gabapentin started with improved pain relief -continue Oxycodone 5-15mg q3 PRN Prophylaxis: Lovenox 40mg QHS Anticipated date of discharge: today Patient was discussed with: Dr. Stanton Attending Physician: Dr. Romy Beatty RN, MSN, ER TECH [facility] Blue Surgery Pager# [phone] 12:54 PM 05/04/2012 Current Inpatient Medications Medication [...] Parish Arias MD - 5:51 AM PDT [facility] Department of Surgery Blue Surgery Progress [...] 04/29/12699 - 04/30/1265804/30/12699 - 05/01/12 0659 Shift 8586-8861 7772-3799 7156-6017 Daily Total 6707-3929 9917-9490 1168-0905 Daily Total I N T A K E P.O. 620 193 339 4036 P.O. 620 793 722 4918 I.V. 1977.33 977.5 982.5 3937.33 0 0 [...] O U T P U T Urine 997 448 5671 2004 I/O Urinary Drain Output (Urinary Cath Placement López) 370 952 7217 2004 Shift Total 724 314 3454 2004 NET 2415.83 837.5 307.5 3560.83 0 0 Physical Exam: General: NAD Cardiovascular: RRR Respiratory: No increased WOB Abdominal: Incision c/d/i, with rosie in place. Abdomen soft, ND, mildly tender Extremities: WWP Labs/Cultures/Pathology: Chemistries: Last 72 Hours (or 3 results): Recent Labs Basename 04/30/12 0842 04/30/12 0642 04/29/12 01404/28/12 1434 NA -- 136 138 140 K [...] tomorrow Parish Blackburn MD Surgery, R1 Pager: [phone] ilvia Del Toro NP - 05/01/2012 2:19 PM PDTPain fairly well controlled on oral medications. No longer nauseated, tolerating 10 mg oxycodone Epidural catheter discontinued, tip intact. APS will sign off, please call us back if there are any pain related concerns for us to add ress. Silvia Del Toro NP Adult Pain Service Pager [phone] Team Pager [phone] Silvia Mckeon NP - 05/01/2012 8:56 AM [...] and summary of old medical records (source: [employer]), as summarized in the body of the note. SILVIA DEL TORO NP BILLING INFORMATION [facility] DEPARTMENT: [phone] Place of Service:- Inpatient Date of Service: 05/01/2012 CSN: [id number] Suggested Modifier: None Suggested CPT: 20179 - Daily mgmt epidural/subarachnoid drug administration Prolonged service: n/a Parish Arias MD - 05/01/2012 5:44 AM PDT [facility] Department of Surgery Blue Surgery Progress [...] index is 34.97 kg/(m^2). Date 04/29/12699 - 04/30/12 0659 04/30/12699 - 05/01/12 0659 Shift 7783-9957 9737-8539 9427-0439 Daily Total 6764-2126 7406-0866 6433-7868 Daily Total I N T A K E P.O. 620 233 722 6010 P.O. 620 000 982 4919 I.V. 1977.33 977.5 982.5 3937.33 0 0 [...] O U T P U T Urine 024 877 2787 2004 I/O Urinary Drain Output (Urinary Cath Placement López) 642 123 1755 2004 Shift Total 125 102 4920 2005 NET 2415.83 837.5 307.5 3560.83 0 [...] course Parish Blackburn MD Surgery, R1 Pager: [phone] ee, MD Parish - 11:59 AM PDT [facility] Department of Surgery Blue Surgery Progress [...] 33.45 kg/(m^2). Date 04/29/12699 - 04/30/1265804/30/12699 - 05/01/1259 Shift 4530-5605 3477-1618 5639-8045 Daily Total 2938-2026 7295-8019 3932-9565 Daily Total I N T A K E P.O. 620 452 992 3722 P.O. 620 665 759 4838 I.V. 1977.33 977.5 982.5 3937.33 0 0 [...] O U T P U T Urine 408 142 2403 2004 I/O Urinary Drain Output (Urinary Cath Placement López) 074 722 9821 2004 Shift Total 072 959 9010 2005 NET 2415.83 837.5 307.5 3560.83 0 0 Physical Exam: General: NAD Cardiovascular: RRR Respiratory: No increased WOB Abdominal: Dressing c/d/i. Dressing removed, incision c/d/i, with rosie in place. Abdom en soft, ND, mildly tender Extremities: WWP Labs/Cultures/Pathology: Chemistries: Last 72 Hours (or 3 results): Recent Labs Basename 04/30/12 0842 04/30/1242 04/29/12 0143 04/28/12 1434 NA -- 136 [...] hours (or 3 results) Recent Labs Basename 04/30/1242 04/29/1214204/28/12 1434 WBC 9.1 10.5 11.0 HB 9.9* [...] course Parish Blackburn MD Surgery, R1 Pager: [phone] Sasha Antony MD - 04/30/2012 7:03 AM [...] mg 20 mg Intravenous Q12H 20 mg (04/29/12 795) senna-docusate (aka SENOKOT S) 8.6-50 mg 1 [...] primary service. JOSE HOOKS MD BILLING INFORMATION [facility] DEPARTMENT: [id number] Place of Service:- Inpatient Date of Service: 04/30/2012 CSN: [id number] Suggested Modifier: GC - Resident Involved Suggested CPT: 32365 - Daily mgmt epidural/subarachnoid drug administration Prolonged [...] the floor later today. SASHA RAIN MD [facility] [address]CSI [address] [facility], 4th Floor Mail Code: CH4P [place], [place] [address] jMatilde melvin ma - 04/29/2012 1:03 PM PDT [...] hours (or 3 results) Recent Labs Basename 04/29/1214204/28/12143304/28/12 0800 WBC 10.5 11.0 6.1 HB 10.9* [...] hours (or 3 results) Recent Labs Basename 04/29/1214204/28/12143304/27/12 1602 AST 135* 145* 27 ALT 111* 114* 42 TBILI 1.0 1.0 0.6 AP 58 82 129* ALB 2.2* 3.0* 3.7 TP 4.4* 5.4* 6.7 Assessment and Plan: S/p liver segmentectomy and en bloc LN dissection Plan Neuro Post op pain Epidural - by APS - if not working though, possible transition to RESIN REMOVER [facility] Hypotension Fluid bolus as needed to [...] no need for intervention [facility] Sasha Antony MD - 04/29/2012 [...] making: N/a JOSE HOOKS MD BILLING INFORMATION [facility] DEPARTMENT: [id number] Place of Service:- Inpatient Date of Service: 04/29/2012 CSN: [id number] Suggested Modifier: GC - Resident Involved Suggested CPT: 00088 - Daily mgmt epidural/subarachnoid drug administration Prolonged service: n/a Ms. Corbin was evaluated with Sasha Rain MD I saw and evaluated patient Ms. Maria Elena Corbni with Fellow Jose Hooks MD. I reviewed [...] MD Department of Obstetrics & Gynecology, PGY1 [facility] Pager [phone] documented in thi s encounter H&P Notes [...] Date: 04/28/2012 Attending Surgeon: Cornelia Stanton M.D. General Sales Manager(s): Ruba Lam MD Preoperative Diagnosis(es): Gallbladder cancer. [...] acute cholecystitis. Her pathology was reviewed at [facility]. She underwent a CT scan, which [...] in case we needed to perform a Dundas maneuver. We then finished the dissection identifying [...] RSI wa s completed. Cornelia Stanton M.D. [facility] ([facility]) Professor and Vice-Fbi Profiler of Surgery The [facility] for Pancreatic Disease Research Pancreatic/ HepatoBiliary and Foregut Working Groups Mail Code [id number] [address] [place], [place]. [address] email: [email or web address] Cornelia Stanton M.D. Professor and Vice-Fbi Profiler of Surgery The [facility] Mene[facility] for Pancreatic Disease Research [facility] ([facility]) Division of Gastrointestinal and General Surgery JS / HS [id number] / [id number] / [id number] / hepCornelia snider MD - 04/28/2012 2:25 PM PDTAssociated Order(s): [...] fossa with negative margins. RUBA BERTRAND MD [place] [place], R5 I was present for the critical portions of this procedure and final inspection for RSI wa s completed. Cornelia Stanton M.D. [facility] ([facility]) Professor and Vice-Fbi Profiler of Surgery The [facility] for Pancreatic Disease Research Pancreatic/ HepatoBiliary and Foregut Working Groups Mail Code [id number] [address] [place], [place]. [address] email: [email or web address] documented in this en counter Consult Notes Crystal Perez PA-C - 04/28/2012 9:45 PM PDTFormatting of [...] Narrative Pt has SO. Lives in [facility]. 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 Likes to [employer], [employer]. FAMILY HISTORY: Family History Problem Relation Diabetes [...] the a ttending physician. CRYSTAL PEREZ PA-C [address] [place] [address] documented in thi s encounter Miscellaneous Notes Scan - Other, Faculty - 05/11/2012 11:27 AM PDTElectronically signed by Faculty Other at 11:27 AM PDTScan - Other, Faculty - 05/10/2012 11:07 AM PDT can - Other, Faculty - 05/10/2012 10:50 AM PDTElec tronically signed by Faculty Other at 05/10/2012 10:50 AM PDTScan - Other, Faculty - 013 10:50 AM PDT can Lissa alvarado Faculty - 05/10/2012 10:50 AM PDT 10: 50 AM PDTScan Lissa Other, Faculty - 05/10/2012 10:50 AM PDT can - Other, Faculty - 05/10/2012 10:50 AM PDTElectronically s igned by Faculty Other at 05/10/2012 10:50 AM PDTEvaluation - Lala Hernandez RN - 05/05/19 13 10:34 AM PDTNursing Discharge Note Discharge Date: 05/04/2012 Additional Discharge Information: Reviewed discharge instructions, wound care and medicatio ns. Pt discharged home, to [facility], with S/O. Discharge Nurse: LALA HERNANDEZ andoff [...] and plan for follow up. Collaborate [facility] surgical team on answering all questions. Provide [...] and plan for follow up. Collaborate w [facility] surgical team on answering all questions. Provide [...] and plan for follow up. Collaborate w [facility] surgical team on answering all questions. Provide reassurance to patient/family. valuation Antoni Lozano RN - 05/03/2012 6:01 AM [...] levels. Patient Stability:Moderately Stable andoff - Cris Adame, DANIKA - 05/03/2012 2:45 AM PDTNursing Handoff Report [...] see well in the dark. Please have assortment planner see patient first thing in AM [...] well in the dark . Please have assortment planner see patient first thing in AM [...] stand by assist, flat bed, without s karlo rail. Sit to stand: stand by assist, [...] patient is comfortable. Lala Mahajan DPT Pager [phone] lan of Placido - Rukhsana Umaña OT - 05/02/2012 10:02 AM PDTFormatting of this note might be different from the o brittinal. Occupational Therapy Evaluation 05/02/2012 10:02 AM Pt [...] Living Environment: Pt lives with spouse in [place] in 1 level house, 0 steps to [...] reviewed with the patient. RUKHSANA UMAÑA OT Caterina - Tito Adame RN - 05/02/2012 12:25 AM PDTNursing Handoff [...] personal items within reach. 4. Assess skin R9mbomf and PRN. Educate on prevention of skin breakdown. Encourage Q2hour t urns. Elevate heels and other pressure points PRN. 5. Provide a safe, noise free environment to promote rest. Cluster care and minimize distur bances. valuation - Nilam Gunn RN - 05/01/2012 6:36 PM PDTProblem: Perioperative [...] protein (1.0-1.5gm/kgAdjB W) Dora Tse RD, LD #[id number] signed by Dora Tse RD at 013 1:21 PM PDTPlan of Placido - Marina Kaminski - 05/01/2012 12:12 PM [...] Provider: none Home Health/Infusion Agency: N/A Insurance/Funding: @[employer]@, [facility], [facility] Assessment: 51 yr old female with hx Gallbladder Ca, admitted for 04/28 liver wedge resectio n. Pt now on 13K, epidural off, diet advancing to full liquid, lópez out, bowel fx starting to return. Pt from [place], appears to have supportive family. Case mgt to follow for dc planning including possible Lovinox. Plan for dc Tue, , this week. Krishna [place] [phone] Anticipated Discharge Needs: Anticipated Discharge Disposition: home [...] procedures Possible DC Note: later lan of Placido - Sabiha Mahajan, PT - 05/01/2012 8:44 [...] with assist TID. Lala Mahajan DPT Pager [phone] lan of Care - Tevin Adame RN - 05/01/2012 2:55 [...] rest. Cluster care and minimize distur bances. andoff - Cris Adame RN - 05/01/2012 2:42 AM PDTNursing Handoff [...] wedge resection IV Access: right Forearm IVF: D5.81mc85M@ 75 Drains/Tubes: Hydromorphone Epidural 13mL cont. 3mL [...] Patient Stability:Moderately Unstable andoff - Linden Yadav , DANIKA - 04/30/2012 6:20 PM PDTNursing Handoff Report [...] wedge resection IV Access: right Forarm IVF: D5.93mu64Z@ 75 Drains/Tubes: Hydromorphone Epidural 12 cont. 3Q [...] might be different from the mohinder messina Physical Therapy Evaluation 04/30/2012 8:24 AM Pt [...] mobility without assistive device; works at a [employer] Patient / Family Goal: Get well, return to home. Communication: Intact, [place] Barriers: None Pain: 7/10 at rest; Pt has a RESIN REMOVER and utilized 2x during evaluation. Vital signs: [...] closely Last pain assessment/reassessment: 1800 continually c/o 6/10 pain Epidural doesn't seem to make any [...] regarding the patient: Pain control lan of Placido - Del Monson RN - 04/29/2012 3:18 [...] pt out of ICU unless indicated otherwise. RUKHSANA UMAÑA OTR/L Caterina - Silvia Sumner RN - 04/28/2012 2:53 PM PDTMeets Phase [...] Additional pain medication information: Functional Epidural: Yes RESIN REMOVER: N/A Respiratory: RR: 12 , O2 Sat: 100 %, O2 Delivery: Simple mask Breath Sounds: WDL KARI: LLL: RUL: RLL: MERNA No Comment: Cardiac: BP: 120/76 mmHg HR: 86 GI: Nausea/Vomiting Status: No Signs/Symptoms: Interventions: Assessment: Comments: : Last void: cath Contact Name: Juan Abarca (spouse) Contact Number: [phone] Family contacted: Yes Comment: Belongings: documented in [...] + +--------+ + + + | DARLENE PEYMAN JUAREZ POC | Routin | 04/28/2012 | Gallbladder [...] [facility] | [address] | [place] [address] | | | SERVICES, CORE | PARK [...] | + + + + + | [facility] | [address] | [place] [address] | | | SERVICES, CORE | NEAL [...] [facility] | [address] | [place] [address] | | | SERVICES, CORE | PARK [...] [facility] | [address] | [place] [address] | | | SERVICES, CORE | PARK [...] | + + + + + | [facility] | [address] | [place] [address] | | | SERVICES, CORE | [address] | | | + + + + + MAGNESIUM, PLASMA (05/03/2012 6:00 AM PDT) + +-------+ + + + | Component | Value | Ref Range | Performed | Pathologist | | | | | At | Signature | + +-------+ + + + | MAGNESIUM,P | 1.8 | 1.8 - 2.5 mg/dL | [facility] | | | LASMA | | [...] | + + + + + | [facility] | [address] | [place] [address] | | | SERVICES, CORE | PARK [...] [facility] | [address] | [place] [address] | | | GAVIN, CORE | PARK [...] [facility] | [address] | [place] [address] | | | SERVICES, CORE | NEAL [...] | + + + + + | [facility] | [address] | [place] [address] | | | SERVICES, CORE | NEAL [...] [facility] | [address] | [place], [place] | | | DG POINT OF CARE | [address] | [address] | | | TESTS | | | [...] | + + + + + | [facility] | [address] | [place] [address] | | | SERVICES, SAM | NEAL [...] [facility] | [address] | [place], [place] | | | DG POINT OF CARE | [facility] | [address] | | | TESTS | | | [...] | + + + + + | [facility] | [address] | [place] [address] | | | SERVICES, CORE | NEAL [...] [facility] | [address] | [place] [address] | | | SERVICES, CORE | PARK [...] | + + + + + | [facility] | [address] | [place] [address] | | | SERVICES, CORE | NEAL [...] [facility] | [address] | [place], [place] | | | JOHN CONTE OF CARE | [address] | [address] | | | TESTS | | | [...] + | [facility] | [address] | [place], [place] | | | DG [facility] | [facility] | [address] | | | TESTS | | | [...] [facility] | [address] | [place] [address] | | | SERVICES, CORE | PARK [...] | + + + + + | [facility] | [address] [facility] | [place] [address] | | | SERVICES, CORE | [address] | | | + + + + + MAGNESIUM, PLASMA (04/30/2012 6:42 AM PDT) + +-------+ + + + | Component | Value | Ref Range | Performed | Pathologist | | | | | At | Signature | + +-------+ + + + | MAGNESIUM,P | 1.8 | 1.8 - 2.5 mg/dL | [facility] | | | LASMA | | [...] | + + + + + | [facility] | [address] | [place] [address] | | | SERVICES, CORE | PARK [...] | + + + + + | [facility] | [address] | [place] [address] | | | SERVICES, CORE | [address] | | | + + + + + OPERATION RECORD (04/29/2012 5:13 PM PDT) + + | Transcriptions | + + | Ruba Muhammad MD - 04/28/2012 10:30 PM PDT Date: | | 04/28/2012ttending Surgeon: Cornelia Stanton M.D.General Sales Manager(s): | | VENKATA Mcclainreoperative Diagnosis(es):Gallbladder | | [...] with an incidental finding of | | N5qgbywkyzxde adenocarcinoma at her recent laparoscopic cholecystectomy foracute | | cholecystitis. Her pathology was reviewed at [facility]. She underwent aCT scan, which | [...] for RSI | | was completed.Cornelia Stanton M.D.[facility] ([facility])Professor | | and Vice-Fbi Profiler of SurgeryThe Shahriar Nava Chair for Pancreatic Disease | | ResearchPancreatic/ HepatoBiliary and Foregut Working GroupsMail Code [id number] [facility] | | [place], [place]. [address]Knwai Fax ([phone] | | [phone]: [email or web address] Stanton M.D.Professor and Vice-Fbi Profiler of | | SurgeryThe Shahriar Nava Chair for Pancreatic Disease ResearchSt. Francis Hospital | | [place] ([facility])Division of Gastrointestinal and General SurgeryJS / [id number] / | | [id number] / [id number] / T: 04/28/2012 | |with electrocautery. Biopsy [...] case we needed to perform a | |Dundas maneuver. We then finished the dissection identifying [...] | | | |Cornelia Stanton M.D. | |[facility] ([facility]) | |Professor and Vice-Fbi Profiler of Surgery | |The [facility] Chair for Pancreatic Disease Research | |Pancreatic/ HepatoBiliary and Foregut Working Groups | |Mail Code L223A | |[address] [place] [address] | |[place], [place]. [address] | | | | | |email: [email or web address] | | | | | |Cornelia Stanton M.D. | |Professor and Vice-Fbi Profiler of Surgery | |The [facility] Chair for Pancreatic Disease Research | |[facility] ([facility]) | |Division of Gastrointestinal and General Surgery | | | |JS / HS | |[id number] / [id number] / [id number] / | | | | | + [...] | + + + + + | [facility] | [address] | [place] [address] | | | SERVICES, CORE | NEAL [...] [facility] | [address] | [place] [address] | | | SERVICES, CORE | NEAL [...] [facility] | [address] | [place] [address] | | | SERVICES, CORE | PARK [...] | + + + + + | [facility] | [address] | [place] [address] | | | SERVICES, CORE | PARK [...] in | | | | | | [facility]. No | | | | | | [...] | + + + + + | [facility] | [address] | [place] [address] | | | SERVICES, CORE | [address] | | | + + + + + JUNIOR (04/28/2012 2:34 PM PDT) + +-------+ + [...] | + + + + + | [facility] | [address] | [place] [address] | | | SERVICES, CORE | NEAL [...] [facility] | [address] | [place] [address] | | | SERVICES, CORE | PARK [...] | + + + + + | [facility] | [address] | [place] [address] | | | SERVICES, CORE | PARK [...] | + + + + + | [facility] | [address] | [place] [address] | | | SERVICES, CORE | NEAL [...] [facility] | [address] | [place], [place] | | | JOHN CONTE OF PLACIDO | [facility] | [address] | | | TESTS | | | | + + + + + SODIUM (ART)MAYLIN (04/28/2012 8:38 AM PDT) + +-------+ [...] [facility] | [address] | [place], [place] | | | JOHN CONTE OF CARE | [facility] | [address] | | | TESTS | | | [...] [facility] | [address] | [place], [place] | | | JOHN CONTE OF CARE | [facility] | [address] | | | TESTS | | | [...] [facility] | [address] | [place], [place] | | | DG POINT OF CARE | [address] | [address] | | | TESTS | | | [...] [facility] | [address] | [place], [place] | | | DG POINT OF CARE | [address] | [address] | | | TESTS | | | [...] [facility] | [address] | [place], [place] | | | JOHN CONTE OF CARE | [address] | [address] | | | TESTS | | | [...] [facility] | [address] | [place], [place] | | | DG POINT OF CARE | [address] | [address] | | | TESTS | | | [...] [facility] | [address] | [place], [place] | | | DG [facility] | [address] | [address] | | | TESTS | | | [...] FellowWei | | | | | | Frank Salinas./Pathologist | | | | | | Amendment [...] bed. | | | | | | [employer] | | | | | | [...] vein. | | | | | | [employer] | | | | | | [...] | | | | | | E2E3-4, loss prevention representative | | | | | | [...] + + + + | [facility] | [address] | [place] [address] | | | PATHOLOGY | [address] [...] PDT | | | | | on Tue05/01/12 at 1600, Until | | | | [...] AM PDT | | | | | 04/30/12 at 0830, Until Mon | | [...] injection 1 dose, | | | Starting 04/28/12 at 1446, | | | Until Tue04/28/12 [...] | mL 500 mL, intravenous, ONCE, | 13 11:37 | | | | [...] 1 packet | | | | (aka LEONIEA-PHOErickson, PHOS-NAK) | | 13 9:23 | | [...] | | | | | | | 3/15/13 at 1952, nausea/vomiting | | | | [...]
--- OUTSIDE RECORDS SUMMARY | ~2019-10-19 | XMS | Encounter Summary ---
Demographics + + + | Address | [address] | | | [place] [address] | + + + | Home Phone [...] + | Poncho Oquendo | ECON | [address] | | | | | [place] | | | | | [address] | | + + + + + | Marta Upton | ECON | [place] | | | | | [address] | | + + + + + Care Team Providers + +------+ + | Care Reconcilement Clerk Name | Role | Phone | [...] + + | 04/22/ | Telephone | [facility] | Reinaldo, | Results | | 2016 | | MED CTR MEDICAL | Chad Soler MD [address] | | | | | ONCOLOGY CLIN[facility] | [facility] | | | | | [address] | [address] [place], [place] | | | | | [place] [address] | [address] | | | | | [phone] | | | +--------+ + + + [...] RN - 04/22/2016 1:17 PM PST[facility] [place] [facility] to notify Dr. Riggins that [...] | | | | | [place] [address] | | | | | | [phone] | | | | | | | | +--------+---------+ + + + documented as of this encounter Visit Diagnoses Not on filedocumented in this encounter"
--- OUTSIDE RECORDS SUMMARY | ~2019-10-19 | XMS | Encounter Summary ---
Demographics + + + | Address | [address] | | | [place] [address] | + + + | Home Phone [...] + | Poncho Oquendo | ECON | [address] | | | | | [place] | | | | | [address] | | + + + + + | Marta Upton | ECON | [place] | | | | | [address] | | + + + + + Care Team Providers + +------+ + | Care Sprinkler Installer Name | Role | Phone | [...] 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, | [place]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 | MD [address] | [place], | | | | | (HCC) | [address] | [place] [address] | | | | | Procedures | [address] | Phone: | | | | | [place] NORMAL | OBED, | [phone] | | | | | [place] | [place] [address] | Fax: | | | | | SOLUTION | Phone: | [phone] | | | | | INFUS, 500 | [phone] | | | | | | ML [place] | Fax: | | | | | | NORMAL | [phone] | | | | | | SALINE | | | | | | | SOLUTION | | | | | | | INFUS, 250 | | | | | | | ML HI | | | | | | | STERILE | | | | | | | WATER/SALINE | | | | | | | , 10 ML HI | | | | | | | CHEMOTHER, | | | | | | | IV PUSH,EA | | | | | | | ADD DRUG HI | | | | | | | CHEMOTHER, | | | | | | | IV INFUSION, | | | | | | | 1 HR HI | | | | | | | CHEMOTHER, | | | | | | | IV INFUSION, | | | | | | | EA HR HI | | | | | | | CHEMOTHER,NO | | | | | | | N-HORMONE | | | | | | | ANTI-NEOPL, | | | | | | | SUB-Q/IM HI | | | | | | | CHEMOTHER | | | | | | | HORMON | | | | | | | ANTINEOPL | | | | | | | SUB-Q/IM HI | | | | | | | INJECTION, | | | | | | | FAMOTIDINE, | | | | | | | 20 MG HI | | | | | | | DIPHENHYDRAM | | | | | | | INE HCL | | | | | | | INJECTIO, 50 | | | | | | | MG HI | | | | | | | INJ., | | | | | | | APREPITANT, | | | | | | | 1 MG HI | | | | | | | ORAL | | | | | | | DEXAMETHASON | | | | | | | E, .25 MG | | | | | | | HI LORAZEPAM | | | | | | | INJECTION, | | | | | | | 2 MG HI | | | | | | | HYDROMORPHON | | | | | | | E 250 MG HI | | | | | | | CARBOPLATIN | | | | | | | INJECTION, | | | | | | | 50 MG HI IN | | | | | | | GEMCITABINE | | | | | | | HCL NOS | | | | | | | 200MG HI | | | | | | | ADRENALIN | | | | | | | EPINEPHRINE | | | | | | | INJECT, .1 | | | | | | | MG HI | | | | | | | METHYLPREDNI | | | | | | | SOLONE | | | | | | | INJECTION, | | | | | | | 125 MG HI | | | | | | | ALBUTEROL | | | | | | | COMP UNIT, 1 | | | | | | | MG HI | | | | | | | ALBUTEROL | | | | | | | COMP CON, 1 | | | | | | | MG | | | +--------+--------+ + + + + Encounter Details +--------+ + + + + | Date | Type | Department | Care Team | Description | +--------+ + + + + | 07/31/ | Hospital | [facility] | Vladimir Robles, | Gallbladder cancer, | | 2020 | Encounter | MED CTR CHEMO | MD [address] | carcinoma (HCC) | | | | INFUSION [address] [place], | (Primary Dx) | | | | [place], | [place] [address] | | | | | [place] [address] | [phone] | | | | | [phone] | | | +--------+ + + + [...] + + + +---------+ + + | domperidone 10 mg | Take 1 tablet by | | 0 | | | | capsule | mouth4 times daily | | | | | + [...] 1 patch onto | | 0 | 05/20/20 | | | (DURAGESIC) 100 | the [...] 1 tablet by | | 0 | 03/04/20 | | | HYDROcodone-acetamin | mouth every [...] + + + +---------+ + + | HYDROmorphone, PF, | Inject 2 Doses into | | 0 | | | | (DILAUDID-HP) 10 | the veinevery hour | | | | | | mg/mL injection | as neededTwo doses | | | | | | | available per hour | | | | | + + + +---------+ + + | ibuprofen | Take 1 tablet by | | 0 | | | | (ADVIL,MOTRIN) 600 | mouthevery 6 hours | | | | | | MG tablet | as needed | | | | | + + [...] + + + +---------+ + + | sodium chloride | Inject into the vein | | 0 | | | | 0.9% (NS) bolus | Three times a week | | | | | | | IV Hydration | | | | | + + + +---------+ + + | sterile water QS | Inject into the vein | | 0 | | | | Base with amino | Daily | | | | | | acids 15% SOLN 1 | [...] mL | | | | | | + + + +---------+ + + documented as of this encounter Miscellaneous Notes Treatment Plan - Jamila Dong RN - 08/01/2019 9:56 AM PDTViewed chart for weight, vi jason signs and lab results. Also viewed chart for completion of medication and allergy revie w prior to medication administration.Jamila Dong RNDATE/TIME: 08/01/2019 9:56 AM PDT documented in this encounter Plan of Treatment +--------+---------+ + + + | Date | Type | Specialty | Care Team | Description | +--------+---------+ + + + | 10/29/ | Office | Urology | Pedro Green, | | 2019 | Visit | | DO Vaishali HIGHTOWER | | | | | | [place] [address] | | | | | | [phone] | | | | | | | [...] the | | | | PDT | ([facility]) | results section. | + +--------+ + + + documented in this encounter Results CBC with Differential (08/01/2019 9:02 AM PDT) [...] [address] | [place] | [phone] | | [facility] | | [address] | | | - LABORATORY | | [...] method | 120 - 246 U/L | [facility] | | | | in use as of March | | | | | | 2018. Check | [...] [address] | [place] | [phone] | | [facility] | | [address] | | | - LABORATORY | | | | + + + + + CA 19-9, Quant (08/01/2019 9:02 AM PDT) [...] + + | Performed at: 01 - [place] [address], | REFERENCE LAB | | [place], [place] [id number] [employer]: Ad Larose MD, Phone: | OSWALD - MARILYNN | | [phone] | | + + + + + + + + | Performing | Address | City/State/Zipcode | Phone Number | | Organization | | | | + + + + + | REFERENCE LAB | [address] | [place], [place] | [phone] | | [facility] | [address] | [address] | | + + + + + [...] use as of March | ng/mL | [facility] | | | | 2018. [...] [address] | [place] | [phone] | | [facility] | | [address] | | | - LABORATORY | | [...] (H) | 60 - 106 mg/dL | [facility] | | | | | | [facility] | | | | | | MEDICAL | | | | | | CENTER - | | | | | | LABORATORY | | + + + + + + | BUN | 33 (H) | 9 - 23 mg/dL | [facility] | | | | | | [facility] | | | | | | MEDICAL | | | | | | CENTER - | | | | | | LABORATORY | | + + + + + + | Creatinine | 0.97 | 0.55 - 1.02 | [facility] | | | | | mg/dL | [facility] | | | | | | MEDICAL | | | | | | CENTER - | | | | | | LABORATORY | | + + + + + + | eGFR, | 59 (L)Comment: | >=60 | [facility] | | | non- | GLOMERULAR FILTRATION | mL/min/1.73m2 | [facility] | | | [place] | RATE,ESTIMATED | | MEDICAL | | | | mL/min/1.56b2Lvbq than | | CENTER - | | [...] 3.5 | 3.2 - 4.8 g/dL | [facility] | | | | [...] [address] | [place] | [phone] | | [facility] | | [address] | | | - LABORATORY | | [...] | aprepitant (CINVANTI) injection | Given | 08/01/19 | 130 mg | | | | 130 mg 130 mg, IV Push, ONCE, | | 20 10:20 | | | | | 08/01/19 at 1030, For 1 dose, | | AM PDT | | | | | Administer slowly over 2 minutes, | | | | | | | | | | | | | + +--------+ +--------+------+------+ +---+---+ | | | +---+---+ + +---------+ + +--------+---+ | CARBOplatin (PARAPLATIN) 186.2 | New Bag | 08/01/19 | 186.2 mg | 537.2 | | | mg in sodium chloride 0.9% 250 mL | | 20 11:40 | | mL/hr | | | infusion 186.2 mg (Target AUC = | | AM PDT | | | | | 2), Intravenous, Administer over | | | | | | | 30 Minutes, ONCE, 08/01/19 at | | | | | | | 1045, For 1 dose, Chemotherapy: | | | | | | | Use appropriate handling | | | | | | | precautions., | | | | | | + +---------+ + +--------+---+ +---+---+ | | | +---+---+ + +-------+ +--------+---+ + | cyanocobalamin (VITAMIN B-12) | Given | 08/01/19 | 1,000 | | Deltoid- | | injection 1,000 mcg 1,000 mcg, | | 20 10:24 | mcg | | Right | | Intramuscular, ONCE, Tue08/01/19 | | AM PDT | | | | | at 1015, For 1 dose | | | | | | + +-------+ +--------+---+ + +---+---+ | | | +---+---+ + +-------+ +-------+---+---+ | diphenhydrAMINE (BENADRYL) | Given | 08/01/19 | 25 mg | | | | injection 25 mg 25 mg, | | 20 10:14 | | | | | Intravenous, ONCE, Tue08/01/19 at | | AM PDT | | | | | 1015, For 1 dose | | | | | | + +-------+ +-------+---+---+ +---+---+ | | | +---+---+ + +-------+ +-------+---+---+ | famotidine (PEPCID) injection | Given | 08/01/19 | 40 mg | | | | 40 mg 40 mg, Intravenous, ONCE, | | 20 10:10 | | | | | 08/01/19 at 1015, For 1 dose, | | AM PDT [...] 865 mg in | New Bag | 08/01/19 | 865 mg | 545.5 | | | sodium chloride 0.9% 250 mL | | 20 11:01 | | mL/hr | | | infusion 865 mg (500 mg/m2 | | AM PDT | | | | | 1.73 m2 Treatment plan recorded | | | | | | | BSA), Intravenous, Administer | | | | | | | over 30 Minutes, ONCE, Wed | | | | | | | 08/01/19 at 1115, For 1 dose, | | | | | | | Chemotherapy: Use appropriate | | | | | | | handling precautions. Do not | | | | | | | refrigerate., | | | | | | + +---------+ +--------+--------+---+ +---+---+ | | | +---+---+ + +-------+ +-------+---+---+ | heparin 100 units/mL flush | Given | 08/01/19 | 500 | | | | injection 500 Units 500 Units (5 | | 20 12:49 | Units | | | | mL), Intracatheter, PRN, Line | | PM PDT | | | | | Care, Starting Tue08/01/19 at | | | | | | | 0955 | | | | | | + +-------+ +-------+---+---+ +---+---+ | | | +---+---+ + +---------+ +------+--------+---+ | ondansetron 8 mg, dexamethasone | New Bag | 08/01/19 | 8 mg | 217.6 | | | (DECADRON) 4 mg in sodium | | 20 10:40 | | mL/hr | | | chloride 0.9% 50 mL IVPB 8 mg, | | AM PDT | | | | | Intravenous, Administer over 15 | | | | | | | Minutes, ONCE, Tue08/01/19 at | | | | | | | 1015, For 1 dose | | | | | | + +---------+ +------+--------+---+ +---+---+ | | | +---+---+ + + + +---+-------+---+ | sodium chloride 0.9% (NS) 1,000 | Restarte | 08/01/19 | | 680 | | | mL with potassium chloride 10 | d | 20 12:14 | | mL/hr | | | mEq, magnesium sulfate 1 g | | PM PDT | | | | | infusion at 680 mL/hr, | | | | | | | Intravenous, ONCE, 08/01/19 at | | | | | | | 1015, For 1 dose, Over 1 hour | | | | | | | per Dr. Najera order, | | | | | | + + + +---+-------+---+ +---------+ +---+-------+---+ | New Bag | 08/01/19 | | 680 | | | | 20 10:59 | | mL/hr | | | | AM PDT | | | | +---------+ +---+-------+---+ +---+---+ | | | +---+---+ documented in this encounter"
--- OUTSIDE RECORDS SUMMARY | ~2019-10-19 | XMS | Encounter Summary ---
Demographics + + + | Address | [address] | | | [place] [address] | + + + | Home Phone [...] Providers + +------+ + | Care Record Pressman Name | Role | Phone | + +------+ + PCP | Unavailable | + +------+ + Encounter Details +--------+ + + + + | Date | Type | Department | Care Team | Description | +--------+ + + + + | 04/11/ | Abstract | Digestive Health | Tai Stanton, | | | 2012 | | [place] [address] | [address] [facility] | | | | | [address] [place] | [facility] | | | | | for Health and | [place], [place] | | | | | [facility] [address] | [address] | | | | | [place], [place] | [phone] | | | | | [address] | | | | | | [phone] | | | +--------+ + + + [...]
--- OUTSIDE RECORDS SUMMARY | ~2019-10-19 | XMS | Encounter Summary ---
Demographics + + + | Address | [address] | | | [place] [address] | + + + | Home Phone [...] Team Providers + +------+ + | Care Grocery Specialist Name | Role | Phone | [...] | | | | | Stay [address] | | | | | | [address] | | | | | | | Mailcode: [facility] | [facility] | [facility] | | | | | | | [facility] | | | | | | | and Healing, | | | | | | | [address] | | | | | | | [place], [place] | | | | | | | [address] | | | | | | | Phone: | | | | | | | [phone] | | | | | | | Fax: | | | | | | | [phone] | +--------+--------+ + + + + Encounter Details +--------+ + + + + | Date | Type | Department | Care Team | Description | +--------+ + + + + | 07/04/ | Hospital | [facility] | Virgilio Esquivel MD | | | 2008 | Encounter | STAY [address] | [address] | | | | | Katerina Mailcode: [facility] | [place], | | | | | [facility] | [place] [address] | | | | | Health and Healing, | [phone] | | | | | [facility] [address] | | | | | | [place], [place] | | | | | | [address] | | | | | | [phone] | | | +--------+ + + + [...] + documented in this encounter Discharge Summaries Other, Faculty - 07/04/2008 3:01 PM PDT documented in [...] ESQUIVEL SCHEDULED (Tomorrow) documented in this encounter Procedure Notes Other, Faculty - 07/04/2008 3:01 PM PDTAssociated Order(s): ANESTHESIA/SEDATION; ANESTHESI A/SEDATION Other, Faculty - 07/04/2008 3:01 PM PDTAssociated Order(s): ANESTHESIA/SEDATION ; ANESTHESIA/SEDATION Other, Faculty - 07/04/2008 3:01 PM PDT Other, Faculty - 07/04/2008 3:01 PM PDT Other, Faculty - 07/04/2008 3:01 PM PDTAssociated Order(s): ORDERS OTHER; OR DERS OTHER Other, Faculty - 07/04/2008 3:01 PM PDT Prudencio Fay MD - 07/04/2008 12:00 AM PDTAssociated Order(s): OPERATION RECORD; OPERATION RECORD [id number] [place] [id number] Date: 07/04/2008 Attending Surgeon: Virgilio Esquivel M.D. Javascript Developer(s): Prudencio Fay MD Preoperative Diagnosis(es): Septal perforation, 12 x 10 mm. Postoperative Diagnosis(es): Septal perforation, 12 x 10 mm. Procedures Performed: Septal perforation repair with acellular dermal graft measuring 18 x 15 mm. Indications: Ms. Upton is a 47-year-old female with a history of septal perforation as a result of previous septoplasty and sinus surgery. She complained of worsening crusting and nasal drainage with occasional bleeding. As such, she sought operative repair after the operative risks and benefits as well as alternatives were presented to her. The alternatives mainly being septal button placement. The patient elected to proceed with the operation and signed an informed consent electing to proceed. A PARQ session was held with Dr. Jacobsen, and all additional questions were answered. Procedure: Ms. Upton was brought back to the operating room and laid supine on the operating room table. General anesthesia was induced and she was intubated without difficulty. The tube was then secured and she was turned 90 degrees towards the surgeon. At that time, 4% cocaine pledgets were then inserted into the nose. A 50:50 mixture of 1% lidocaine with 1:100,000 epinephrine and 0.5% Marcaine with 1:100,000 epinephrine was infiltrated into the nasal base and underneath the soft tissue skin envelope. The bilateral septal mucoperichondrial flaps were also injected. Approximately 60 mL of local anesthesia was used for this purpose. The patient was then prepped and draped in a sterile fashion. At that time, an operative pause was performed and all in attendance agreed to commence the operation. A transcolumellar incision was marked with a marking pen in an inverted-V fashion. A #15 blade was used to make bilateral marginal incisions and the inverted-V transcolumellar incisions. Scissor dissection was used to elevate the columellar portion of this skin flap. Subsequent 3-point fixation was used to elevate the soft tissue skin envelope in a subnasal SMAS plane off the underlying lower lateral cartilages. Additional elevation of the soft tissue skin envelope was done up to the level of the rhinion. Hemostasis was then achieved. The bilateral lower cartilages were grasped and scissor dissection was used to separate them in the midline. This enabled dissection down to the level of the caudal portion of the anterior septal angle. The left side was approached initially. A #15 blade was used to score the cartilage on the left side, and a [place] was used to elevate the left mucoperichondrial flap. This was elevated above and below the level of the perforation and was taken past the bony cartilaginous junction superiorly and inferiorly. In order to gain additional exposure, the right side was approached in a similar fashion. Cartilaginous scoring was performed with a #15 blade followed by [place] elevation of mucoperichondrial flap. The portions of mucosa surrounding the perforation were then incised with a [place]. Additional mobilization of the bilateral mucoperichondrial mucoperiosteal flaps was performed into the floor of the nose inferiorly and laterally toward the inferior turbinate. This was performed on both sides while keeping the flaps intact. Adequate mobilization at that point was not achieved, and therefore, bilateral releasing incisions were made laterally underneath the respective inferior turbinates and carried superficially out towards the nasal sill. Once again, mobilization of the flaps was not adequate for closure, and therefore, dorsally based incision near the junction of the upper lateral cartilage and septum were performed for superior release. This enabled closure of both sides with minimal tension. Closure was achieved on the right side first with multiple interrupted 5-0 interrupted chromic gut sutures. This was also performed on the left side. Once closure of both sides of the perforation was done, the AlloDerm was cut to size and placed between both closed suture lines. At that point, the bilateral medial crura were reapproximated to one another with 4-0 plain gut suture. Two such sutures were placed. An additional bilateral mucosal apposition stitch was placed in order to support the lower lateral cartilages onto the anterior septal angle of the septum. The soft tissue skin envelope was then redraped over the underlying framework and the transcolumellar incision was reapproximated with multiple interrupted 6-0 fast-absorbing gut sutures. Closure of the bilateral marginal incisions was done with 5-0 chromic gut in an interrupted fashion. Subsequently, a 4-0 Vicryl Rapide was used to perform a quilting mattress suture bringing together the mucoperichondrial layers. Bilateral Telfa packs were placed, and the patient underwent a standard dressing with Mastisol, micropore tape, and Aquaplast. The patient tolerated the procedure well and was sent to recovery room in good condition. Dr. Jacobsen was present during the procedure and directed the critical portions of the case. MD Virgilio Sultana M.D. Facial Plastic and Reconstructive Surgery K / [id number] / [id number] / [id number] / angVirgilio MD - 2008 12:00 AM PDTAssociated Order(s): TEACHING PHYSICIAN; TEACHING PHYSICIAN [id number] [facility] [id number] Date: 07/04/2008 Attending Surgeon: Virgilio Esquivel M.D. Javascript Developer(s): Prudencio Fay MD Preoperative Diagnosis(es): Nasal septal perforation, 1.1 cm. Postoperative Diagnosis(es): Nasal septal perforation, 1.1 cm. Procedures Performed: External rhinoplasty approach to repair of septal perforation with placement of AlloDerm interpositional graft. Specimens: No specimens. Complications: No complications. This is to indicate that pursuant to federal Medicare guidelines, I was present for the entire case. Virgilio D. Esquivel, M.D. Facial Plastic and Reconstructive Surgery TDW / HS [id number] / [id number] / [id number] / ther, Faculty - 5:22 PM PDT Other, Faculty - 07/03/2008 4:59 PM PDT documented in this encounter Miscellaneous Notes Scan - Other, Faculty - 07/04/2008 3:01 PM PDT Scan - Other, Faculty - 07/04/2008 3:01 PM PDT Scan - Other, Faculty - 07/04/2008 3:01 PM PDT Scan - Other, Faculty - 07/04/2008 3:01 PM PDT documented in this encounter Plan of [...] | + + | Yamila Benitez - 07/04/2008 3:01 PM PDT | + + ORDERS OTHER (07/04/2008 3:01 PM PDT) + + + | Narrative | Performed At | + + + | | | + + + + + | Procedure Note | + + | Yamila Benitez - 07/04/2008 3:01 PM PDT | + + OPERATION RECORD (07/04/2008 12:00 AM PDT) + + + | Narrative | Performed At | + + + | [id number] | | | [id number] | | | [id number] [place] [id number] | | | Date: 07/04/2008 Attending Surgeon: | | | Virgilio Esquivel M.D. Javascript Developer(s): | | | Prudencio Fay MD Preoperative [...] left side, and | | | a [place] was used to elevate the left mucoperichondrial [...] performed with a #15 blade followed by [place] elevation of | | | mucoperichondrial flap. The portions of mucosa surrounding the | | | perforation were then incised with a [place]. Additional mobilization | | | of the [...] Frank Esquivel. Facial Plastic and Reconstructive Surgery KRISTINA / AWA | | | [id number] / [id number] / [id number] / | | | | | + + + + + | Procedure Note | + + | Prudencio Fay MD - 07/04/2008 12:00 AM PDT [id number] | | [id number] EMERALD | | [place] [id number] Date: 07/04/2008 Attending Surgeon: | | Virgilio Esquivel M.D. Javascript Developer(s): Prudencio Fay MD | | Preoperative Diagnosis(es):Septal [...] the cartilage on theleft side, and a [place] was | | used to elevate the left mucoperichondrial flap.This was elevated above and below the | | level of the perforation and wastaken past the bony cartilaginous junction superiorly | | and inferiorly. Inorder to gain additional exposure, the right side was approached in | | asimilar fashion. Cartilaginous scoring was performed with a #15 bladefollowed by Pah[place]e | | elevation of mucoperichondrial flap. The portions ofmucosa surrounding the perforation | | were then incised with a [place]e.Additional mobilization of the bilateral | | mucoperichondrial [...] cartilages onto the anterior septal angle of theseptum. The soft tissue | | skin envelope [...] M.D.Facial Plastic | | and Reconstructive Surgery [facility] / [id number] / [id number] / [id number] / T: 07/06/2008 | | | |approached initially. A #15 blade was used to score the cartilage on the | |left side, and a [place] was used to elevate the left mucoperichondrial flap. | |This was elevated above and below the level of the perforation and was | |taken past the bony cartilaginous junction superiorly and inferiorly. In | |order to gain additional exposure, the right side was approached in a | |similar fashion. Cartilaginous scoring was performed with a #15 blade | |followed by [place] elevation of mucoperichondrial flap. The portions of | |mucosa surrounding the perforation were then incised with a [place]. | |Additional mobilization of the bilateral mucoperichondrial [...] Reconstructive Surgery | | | | | |MMK / HS | |[id number] / [id number] / [id number] / | | | | | | | | | | | | | | | | | | | | | + + TEACHING PHYSICIAN (07/04/2008 12:00 AM PDT) + + + | Narrative | Performed At | + + + | [id number] | | | [id number] | | | [id number] [place] [id number] | | | Date: 07/04/2008 Attending Surgeon: | | | Virgilio Esquivel M.D. Javascript Developer(s): | | | Prudencio Fay MD Preoperative [...] Surgery TDW / HS | | | [id number] / [id number] / [id number] / | | | | | + + + + + | Procedure Note | + + | Virgilio Esquivel MD - 07/04/2008 12:00 AM PDT [id number] | | [id number] [facility] | | A[place] [id number] Date: 07/04/2008 Attending Surgeon: | | Virgilio Esquivel M.D. Javascript Developer(s): Prudencio Fay MD | | Preoperative Diagnosis(es):Nasal [...] Virgilio Esquivel M.D.Facial Plastic and Reconstructive Surgery TD / [id number] / | | [id number] / [id number] / T: 07/04/2008 | | | | [...] | | | |TDW / HS | |[id number] / [id number] / [id number] / | | | | | | | | | | | | | | | | | | | | | + + documented in this encounter Visit Diagnoses Not on filedocumented in this encounter
--- OUTSIDE RECORDS SUMMARY | ~2019-10-19 | XMS | Encounter Summary ---
Demographics + + + | Address | [address] | | | [place] [address] | + + + | Home Phone [...] Providers + +------+ + | Care Automotive Parts Counterperson Name | Role | Phone | + [...] | 2012 | Visit | Center at [facility] [address] | [address] [facility] | carcinoma (HCC) | | | | [facility] | [address] | (Primary Dx) | | | | for Health and | [place], [place] | | | | | [facility], [facility] 2 | [address] | | | | | [place], [place] | [phone] | | | | | [address] | | | | | | [phone] | | | +--------+---------+ + + + [...] the resident s note. Tai Stanton M.D. [facility] ([facility]) Professor and Vice-Flooring Grader of Surgery The Shahriar Nava Chair for Pancreatic Disease Research Pancreatic/ HepatoBiliary and Foregut Working Groups Mail Code [id number] [address] [place], [place]. [address] email: [email or web address] Gary Marrero MD - 05/17/2012 [...] probing. Packed with 1/4 in g auze. Twin Brooks removed, steristrips placed. Extremities: WWP, no significant [...] GARY DONOHUE MD General Surgery, R2 Pg. 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
--- OUTSIDE RECORDS SUMMARY | ~2019-10-19 | XMS | Encounter Summary ---
Demographics + + + | Address | [address] | | | [place] [address] | + + + | Home Phone [...] Team Providers + +------+ + | Care Commercial Property Manager Name | Role | Phone | + +------+ + | Tomasa Wagner | PCP | | + +------+ + Encounter Details +--------+ + + + + | Date | Type | Department | Care Team | Description | +--------+ + + + + | 10/02/ | Abstract | Digestive Health | Tai Stanton, | | | 2012 | | Center at [facility] [address] | [address] [facility] | | | | | [facility] | [facility] | | | | | for Health and | [place], [place] | | | | | [facility], [address] [address] | [address] | | | | | [place], [place] | [phone] | | | | | [address] | | | | | | [phone] | | | +--------+ + + + [...]
--- OUTSIDE RECORDS SUMMARY | ~2019-10-19 | XMS | Encounter Summary ---
Demographics + + + | Address | [address] | | | [place] [address] | + + + | Home Phone [...] | Author | [facility] | | | and [place] | + + + | Organization | [facility] | | | and [place] | + + + | Address | Unknown | + + + | Phone | Unavailable | + + + Support + + + + + | Name | Relationship | Address | Phone | + + + + + | Poncho Omar Oquendo | ECON | [address] | | | | | [place] | | | | | [address] | | + + + + + | Marta Upton | ECON | [place] | | | | | [address] | | + + + + + Care Team Providers + +------+ + | Care Shoe Singer Name | Role | Phone | + +------+ + | No, Physician | PCP | Unavailable | + +------+ + Reason for Visit + +--------+ + | Reason | Onset | Comments | | | Date | | + +--------+ + | Follow-up | 02/12/ | | | | 2019 | | + +--------+ + Encounter Details +--------+ + + + + | Date | Type | Department | Care Team | Description | +--------+ + + + + | 02/12/ | Telephone | [facility] | Pedro Green, | Follow-up | | 2019 | | UROLOGY [address] | DO [address] | | | | | [address] | [place] [address] | | | | | [place], [place] | [phone] | | | | | [address] | | | | | | [phone] | | | +--------+ + + + [...] this encounter Miscellaneous Notes Telephone Encounter - Yasmine Allison - 02/12/2019 1:12 PM PSTReturned pt call left voice message to schedule pt. el ephone Encounter - Roxie De León - 02/12/2019 10:05 AM PSTMaclementina, is calling regarding Follow-up and would like a call back. Additional Call Details: Calling to schedule Follow Up Appointment. Can be reached at Cell Number listed in Chart. If this is a symptom based call, was patient offered triage? Not Applicable If this is a symptom based call and you were unable to immediately transfer the call to a p ashwini public relations counselor was caller made aware that if [...] | Visit | | DO [address] [facility] | | | | | | [place] [address] | | | | | | [phone] | | | | | | | | +--------+---------+ + + + documented as of this encounter Visit Diagnoses Not on filedocumented in this encounter"
--- OUTSIDE RECORDS SUMMARY | ~2019-10-19 | XMS | Encounter Summary ---
Demographics + + + | Address | [address] | | | [place] [address] | + + + | Home Phone [...] | Author | [facility] | | | and [place] | + + + | Organization | [facility] | | | and [place] | + + + | Address | Unknown | + + + | Phone | Unavailable | + + + Support + + + + + | Name | Relationship | Address | Phone | + + + + + | Poncho Oquendo | ECON | [address] | | | | | [place] | | | | | [address] | | + + + + + | Marta Upton | ECON | [place] | | | | | [address] | | + + + + + Care Team Providers + +------+ + | Care Meteorologist In Charge Name | Role | Phone | + [...] + + | 06/24/ | Telephone | [facility] | Reinaldo, | Other | | 2014 | | MED CTR MEDICAL | Chad Soler MD [address] | | | | | ON[facility]OGY CLINIC [facility] | [facility] | | | | | [address] | [address] [place], [place] | | | | | [place] [address] | [address] | | | | | [phone] | | | +--------+ + + + [...] PDTCall to patient, zachariah whiting will have [facility] fax records to Dr. Riggins at 06/26/14 visit. elephone Encounter - Chad Riggins MD - 06/24/2014 4:54 PM PDTI have not had any communication from her other providers so I was unaware of her new diagnosis. CHAD RIGGINS MD elephone Encou anastacoi - Sonia Renae RN - 06/24/2014 4:[address] [facility] on 03/18/14 whi ch reported showed small left ovarian cyst. Patient saw a JEWEL SUPERVISOR Latoya Holt who did a US o n 05/08/14 which reportedly showed growth in cyst. 4/8/[address] here at [facility] . Saw Dr. Lorie Maciel at [facility] and had surgery on 06/06/14 for hysterectomy with excision of tubes and ovar ies and laparotomy. 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 Page at [facility] on 06/26/14. Patient concerned that there has not been recent commun ication back from Dr. Riggins. Patient asking that information be faxed to Dr. Page's office today to prepare for her appointment which I did accomplish for her. elephone Encounter - Clarissa Ordonez - 06/24/2014 3:37 PM PDTRitu has been diagnosed with recurrent gallbladder cancer since her last visit t o . She'd like to talk to you about her appointment at [facility]. She'd appreciat e a call back today. [...] | | | | | [place] [address] | | | | | | [phone] | | | | | | | | +--------+---------+ + + + documented as of this encounter Visit Diagnoses Not on filedocumented in this encounter"
--- OUTSIDE RECORDS SUMMARY | ~2019-10-19 | XMS | Encounter Summary ---
Demographics + + + | Address | [address] | | | [place] [address] | + + + | Home Phone [...] Team Providers + +------+ + | Care Shift Mgr Name | Role | Phone | + [...] | | | | | [address] | | | | | | | [facility] | | | | | | | for Health | | | | | | | and Healing, | | | | | | | [address] | | | | | | | [place], [place] | | | | | | | [address] | | | | | | | Phone: | | | | | | | [phone] | | | | | | | Fax: | | | | | | | [phone] | +--------+--------+ + + + + Encounter Details +--------+---------+ + + + | Date | Type | Department | Care Team | Description | +--------+---------+ + + + | 05/31/ | Office | Digestive Health | Tai Stanton, | Encounter for wound | | 2012 | Visit | Center at [facility] [address] | [address] | care (Primary Dx) | | | | [facility] | [address] | | | | | for Health and | [place], [place] | | | | | [facility] 2 | [address] | | | | | [place], [place] | [phone] | | | | | [address] | | | | | | [phone] | | | +--------+---------+ + + + [...] the resident s note. Tai Stanton M.D. [facility] ([facility]) Professor and Vice-Wiener Packer of Surgery The Shahriar Nava Chair for Pancreatic Disease Research Pancreatic/ HepatoBiliary and Foregut Working Groups Office email: [email or web address] Rukhsana Patel MD - 05/31/2012 2:07 PM PDT [facility] Department of Surgery [facility] Note [...] 51 y.o. female patient who presents to [facility] today for follow up for her [...] Pathology: Original path: Materials Received: Referring Institution: [facility] [employer], [place] [address] Outside Accession Number: [id number] Sample Collection Date: 03/29/2012 Sublabeled H&E IHC [...] plan. Rukhsana Tesfaye MD Surgery, R1 Pager: [phone] documented in this e ncounter Plan of Treatment Not on filedocumented as of this encounter Visit Diagnoses + + | Diagnosis | + + | Encounter for wound care - Primary Encounter for other specified aftercare | + + documented in this encounter
--- OUTSIDE RECORDS SUMMARY | ~2019-10-19 | XMS | Encounter Summary ---
Demographics + + + | Address | [address] | | | [place] [address] | + + + | Home Phone [...] Team Providers + +------+ + | Care Obstetrician And Gynaecologist Name | Role | Phone | + [...] | | | | | cancer | [address] | | | | | (HCC) | [address] | [facility] | | | | | Procedures | [address] | [address] | | | | | CONSULT TO | [facility] [place] | [facility] [place] | | | | | HEMATOLOGY / | [address] | [address] Phone: | | | | | ONCOLOGY | Phone: | [phone] | | | | | PRACTICE | [phone] | Fax: | | | | | | Fax: | [phone] | | | | | | [phone] | | + +--------+ + + + [...] | cancer | [address] | [address] [facility] | | | | | (HCC) | [address] | [address] | | | | | Procedures | [address] | [address] [place], | | | | | CONSULT TO | [place], [place] | [place] | | | | | SURGERY - | [address] | [address] | | | | | GENERAL | Phone: | Phone: | | | | | | [phone] | [phone] | | | | | | Fax: | Fax: | | | | | | [phone] | [phone] | +--------+--------+ + + + + Encounter Details +--------+ + + + + | Date | Type | Department | Care Team | Description | +--------+ + + + + | 06/14/ | Composite Technician | [facility] | Miguel Seymour, | Gallbladder cancer | | 2015 | | [facility] | [address] | (HCC) (Primary Dx) | | | | [address] | [facility] | | | | | [address] | [place], [place] | | | | | Alexis, [facility] floor | [address] | | | | | [place], [place] | [phone] | | | | | [address] | | | | | | [phone] | | | +--------+ + + + [...]
--- OUTSIDE RECORDS SUMMARY | ~2019-10-19 | XMS | Encounter Summary ---
Demographics + + + | Address | [address] | | | [place] [address] | + + + | Home Phone [...] | Author | [facility] | | | and [place] | + + + | Organization | [facility] | | | and [place] | + + + | Address | Unknown | + + + | Phone | Unavailable | + + + Support + + + + + | Name | Relationship | Address | Phone | + + + + + | Poncho Oquendo | ECON | [address] | | | | | [place] | | | | | [address] | | + + + + + | Marta Upton | ECON | [place] | | | | | [address] | | + + + + + Care Team Providers + +------+ + | Care Bricklayer Helper Name | Role | Phone | + +------+ + | Valeriy Carmona DO | TAWNYA | | + +------+ + Encounter Details +--------+ + + + + | Date | Type | Department | Care Team | Description | +--------+ + + + + | 06/26/ | Orders Only | [facility] | Marcelina Johnson, | Gallbladder cancer, | | 2014 | | MED CTR CHEMO | RN | carcinoma (HCC) | | | | INFUSION [address] | | (Primary Dx) | | | | [place], | | | | | | [place] [address] | | | | | | [phone] | | | +--------+ + + + [...] [address] | | | | | | [place] [address] | | | | | | [phone] | | | | | | | | +--------+---------+ + + + documented as of this encounter Visit Diagnoses + + | Diagnosis | + + | Gallbladder cancer, 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
--- OUTSIDE RECORDS SUMMARY | ~2019-10-19 | XMS | Encounter Summary ---
Demographics + + + | Address | [address] | | | [place] [address] | + + + | Home Phone [...] Author | [facility] | | | and [place] | + + + | Organization | [facility] | | | and [place] | + + + | Address | Unknown | + + + | Phone | Unavailable | + + + Support + + + + + | Name | Relationship | Address | Phone | + + + + + | Poncho Oquendo | ECON | [address] | | | | | [place] | | | | | [address] | | + + + + + | Marta Carlospadmaja | ECON | [place] | | | | | [address] | | + + + + + Care Team Providers + +------+ + | Care Gritting Machine Operator Name | Role | Phone [...] | | renal and | [place], | [facility] [place] | | | | | ureteral | [place] | [address] Phone: | | | | | calculous | [address] | [phone] | | | | | obstruction | Phone: | Fax: | | | | | | [phone] | [phone] | | | | | | Fax: | | | | | | | [phone] | | +--------+--------+ + + + + Encounter Details +--------+---------+ + + + | Date | Type | Department | Care Team | Description | +--------+---------+ + + + | 11/21/ | Office | [facility] | Pedro Green, | Cholangiocarcinoma | | 2019 | Visit | UROLOGY [address] | DO [address] | (HCC) (Primary Dx); | | | | [address] | [place] [address] | Obstruction of left | | | | [place], [place] | [phone] | ureter | | | | [address] | | | | | | [phone] | | | +--------+---------+ + + + [...] encounter Patient Instructions Patient Instructions Kalina Hughes, Floor Polisher - 11/21/2018 10:30 AM PDTPLAN IMAGING NEED TO BE DONE PRIOR TO APPOINTMENT OR YOUR APPOINTMENT WILL BE CANCELED AND CELESTE EDULED #01: Proceed with Surgery on 11/29. 4 Month Follow-up From Surgery 11/29 with Stent Exchange Options #02: Informed Consent was obtained. #03: Please call to register and schedule Per Admission appointment for [facility] Surgery. It is important to have a Per Admission Appointment to assure your safety duri anesthesia and surgery. Location: [facility] ([address] [place] [address]) Time: The day before surgery someone from the hospital will call you to give you your arriv al time. Be advised, they will call you in the late afternoon or early evening. Please do not contact our office to find out your time of arrival. IF YOU HAVE A HEDIS SPECIALIST You MUST receive a cardiac clearance from your all round logger prior to surgery. A pre-admission (registration) appointment [...] IT OFF OR FAX IT TO US ([phone]) AT LEAST 2 WEEKS PRIOR TO SURGERY. MAKE SURE TO IN CLUDE TIME OFF NEEDED/WHEN YOU PLAN TO RETURN TO WORK. documented in this encounter Progress Notes Pedro Green DO - 11/21/2018 10:30 AM PDTFormatting of this note might be different fr om the original. [facility] Urology Primary Care Provider: No [...] well. Her last excha nge was at [facility] during a septic episode. Her last [...] - STENT; Surgeon: Pedro Green DO; Location: [facility]; Service: Urology; Laterality: Left; stent [...] DO 11/21/2018 documented in this e ncounter H&P Notes Pedro Green DO - 11/21/2018 10:30 AM PDTFormatting of this note might be different fr om the original. [facility] Urology Primary Care Provider: No [...] well. Her last excha nge was at [facility] during a septic episode. 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
--- OUTSIDE RECORDS SUMMARY | ~2019-10-19 | XMS | Encounter Summary ---
Demographics + + + | Address | [address] | | | [place] [address] | + + + | Home Phone [...] + | Poncho Oquendo | ECON | [address] | | | | | [place] | | | | | [address] | | + + + + + | Marta Upton | ECON | [place] | | | | | [address] | | + + + + + Care Team Providers + +------+ + | Care Fluorescent Lamp Replacer Name | Role | Phone | + +------+ + | No, Physician | PCP | Unavailable | + +------+ + Encounter Details +--------+ + + + + | Date | Type | Department | Care Team | Description | +--------+ + + + + | 09/17/ | Hospital | [facility] | | | | 2013 | Encounter | MED CTR XRAY [address] | | | | | | [place] | | | | | | [place] [address] | | | | | | [phone] | | | +--------+ + + + [...] 2019 | Visit | | DO [address] | | | | | | [place] [address] | | | | | | [phone] | | | | | | | | +--------+---------+ + + + documented as of this encounter Visit Diagnoses Not on filedocumented in this encounter"
--- OUTSIDE RECORDS SUMMARY | ~2019-10-19 | XMS | Encounter Summary ---
Demographics + + + | Address | [address] | | | [place] [address] | + + + | Home Phone [...] + | Poncho Oquendo | ECON | [address] | | | | | [place] | | | | | [address] | | + + + + + | Marta Upton | ECON | [place] | | | | | [address] | | + + + + + Care Team Providers + +------+ + | Care Green Meat Packer Name | Role | Phone | + +------+ + | Valeriy Carmona DO | TAWNYA | | + +------+ + Encounter Details +--------+ + + + + | Date | Type | Department | Care Team | Description | +--------+ + + + + | 09/03/ | Orders Only | [facility] | Reinaldo, | Cholangiocarcinoma | | 2015 | | MED CTR PROVIDER | Epifanio Soler MD [address] | ([facility]) (Primary Dx) | | | | ONCOLOGY [address] | [address] [facility] | | | | | [address], | [address] [place] | | | | | [place] [address] | [address] | | | | | [phone] | | | +--------+ + + + [...] | | | | | | [place] [address] | | | | | | [phone] | | | | | | | | +--------+---------+ + + + documented as of this encounter Visit Diagnoses + + | Diagnosis | + + | 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
--- OUTSIDE RECORDS SUMMARY | ~2019-10-19 | XMS | Encounter Summary ---
Demographics + + + | Address | [address] | | | [place] [address] | + + + | Home Phone [...] + | Poncho Oquendo | ECON | [address] | | | | | [place] | | | | | [address] | | + + + + + | Marta Upton | ECON | [place] | | | | | [address] | | + + + + + Care Team Providers + +------+ + | Care Formula Mixer Name | Role | Phone | + +------+ + | Valeriy Carmona DO | PCP | | + +------+ + Reason for Visit +--------+--------+ + | Reason | Onset | Comments | | | Date | | +--------+--------+ + | Other | 08/01/ | | | | 2017 | | +--------+--------+ + Encounter Details +--------+ + + + + | Date | Type | Department | Care Team | Description | +--------+ + + + + | 08/01/ | Telephone | [facility] | Reinaldo, | Other | | 2018 | | MED CTR MEDICAL | Epifanio Soler MD [address] | | | | | ONCOLOGY CLINIC [facility] | [facility] | | | | | [address] | [address] [place], [place] | | | | | [place] [address] | [address] | | | | | [phone] | | | +--------+ + + + [...] Telephone Encounter - Sonia Renae RN - 08/01/2017 1:47 PM PDTOrders faxed. Elect ronically signed by Sonia Renae RN at 08/01/2017 1:47 PM PDTTelephone Encounter - Sonia Renae RN - 08/01/2017 12:12 PM PDTOrders here waiting for MD signature. Elec tronically signed by Sonia Renae RN at 08/01/2017 12:12 PM PDTTelephone Encounter - Noble Kent - 08/01/2017 12:01 PM PDTPt called, Dr Najera has been placing orders with [facility] and she is down to her last bag of hydrations. She believes [facility] diaz s reached out but she is down to her last bag so she is following up [phone] is the # she is at if can call when this is done. Thank you documented in this encou nter Plan of Treatment +--------+---------+ + + + | Date | Type | Specialty | Care Team | Description | +--------+---------+ + + + | 10/29/ | Office | Urology | Pedro Green, | | | 2020 | Visit | | DO [address] | | | | | | [place] [address] | | | | | | [phone] | | | | | | | | +--------+---------+ + + + documented as of this encounter Visit Diagnoses Not on filedocumented in this encounter"
--- OUTSIDE RECORDS SUMMARY | ~2019-10-19 | XMS | Encounter Summary ---
Demographics + + + | Address | [address] | | | [place] [address] | + + + | Home Phone [...] + | Poncho Oquendo | ECON | [address] | | | | | [place] | | | | | [address] | | + + + + + | Marta Upton | ECON | [place] | | | | | [address] | | + + + + + Care Team Providers + +------+ + | Care Physics Faculty Member Name | Role | Phone | + +------+ + PCP | Unavailable | + +------+ + Encounter Details +--------+ + + + + | Date | Type | Department | Care Team | Description | +--------+ + + + + | 03/12/ | Hospital | [facility] | Dilip Hakan | | | 2011 | Encounter | MED CTR XRAY [address] | [address], [address] | | | | | [place] | [place], [place] | | | | | [place] [address] | [address] | | | | | [phone] | | | +--------+ + + + [...] [place] | | | | | | [place] [address] | | | | | | [phone] | | | | | | | [...] Performed At | + + + | [facility] Diagnostic Imaging Department | [facility] | | [address] [facility] [address] | [facility] | | RIGHT HIP, 03/12/2011 | DIAG [...] Transcribed Date/Time: 03/12/2011 | | | 11:29 Assurance Senior: <Electronically Signed by Alejandro Keller | | | MD Mo> 03/12/11 1459 | | + + + + + | Procedure Note | + + | Edmundo, Rad Conversion - 03/23/2013 4:38 PM [facility] | | Diagnostic Imaging Department [address] [place] [address] | | RIGHT HIP, 03/12/2011 CLINICAL HISTORY: [...] by Alejandro Hassan MD> 03/12/11 | | 6595 | |FINDINGS: AP view of the pelvis [...] 11:24 | |Transcribed Date/Time: 03/12/2011 11:29 | |Assurance Senior: | |<Electronically Signed by Alejandro Hassan MD> 03/12/11 1459 | + + + +---------+ + + | Performing | Address | City/State/Zipcode | Phone Number | | Organization | | | | + +---------+ + + | [facility] | | | | | [facility] | | | | + +---------+ + + XR Lumbar Spine 2 or 3 Vw (03/12/2011 10:07 AM PST) + + | Specimen | + + | | + + + + + | Narrative | Performed At | + + + | [facility] Diagnostic Imaging Department | [facility] | | [address] [facility] | [facility] | | LATERAL VIEWS, LUMBAR SPINE | [...] | | | Transcribed Date/Time: 03/12/2011 11:29 Assurance Senior: | | | <Electronically Signed by Alejandro Hassan MD> 03/12/11 1459 | | + + + + + | Procedure Note | + + | Edmundo, Rad Conversion - 03/23/2013 4:38 PM [facility] | | Diagnostic Imaging Department [address] [place] [address] | | LATERAL VIEWS, LUMBAR SPINE CLINICAL [...] 11:23 | |Transcribed Date/Time: 03/12/2011 11:29 | |Assurance Senior: | |<Electronically Signed by Alejandro Hassan MD> 03/12/11 1459 | + + + +---------+ + + | Performing | Address | City/State/Zipcode | Phone Number | | Organization | | | | + +---------+ + + | [facility] | | | | | [facility] | | | | + +---------+ + + documented in this encounter Visit Diagnoses Not on filedocumented in this encounter"
--- OUTSIDE RECORDS SUMMARY | ~2019-10-19 | XMS | Encounter Summary ---
Demographics + + + | Address | [address] | | | [place] [address] | + + + | Home Phone [...] Team Providers + +------+ + | Care Demolitionist Name | Role | Phone | + +------+ + | Tomasa Wagner | PCP | | + +------+ + Reason for Visit + + + | Reason | Comments | + + + | Medical Records | [facility] - OUTSIDE PROCEDURE REPORT | | Review | | + + + Encounter Details +--------+ + + + + | Date | Type | Department | Care Team | Description | +--------+ + + + + | 07/26/ | Abstract | [facility] | Tai Stanton, | Medical Records | | 2013 | | Center at [facility] [address] | [address] [facility] | Review ([facility] - | | | | [facility] | [facility] | OUTSIDE PROCEDURE | | | | for [facility] and | [place], [place] | REPORT) | | | | [facility], [facility] | [address] | | | | | [place], [place] | [phone] | | | | | [address] | | | | | | [phone] | | | +--------+ + + + [...]
--- OUTSIDE RECORDS SUMMARY | ~2019-10-19 | XMS | Encounter Summary ---
Demographics + + + | Address | [address] | | | [place] [address] | + + + | Home Phone [...] + | Poncho Oquendo | ECON | [address] | | | | | [place] | | | | | [address] | | + + + + + | Marta Upton | ECON | [place] | | | | | [address] | | + + + + + Care Team Providers + +------+ + | Care Leadite Worker Name | Role | Phone | [...] 2014 | | MED CTR CHEMO | Tito, RN | | | | | INFUSION [address] | | | | | | [place], | | | | | | [place] [address] | | | | | | [phone] | | | +--------+ + + + [...] | | | | | [place] [address] | | | | | | [phone] | | | | | | | | +--------+---------+ + + + documented as of this encounter Visit Diagnoses Not on filedocumented in this encounter"
--- OUTSIDE RECORDS SUMMARY | ~2019-10-19 | XMS | Encounter Summary ---
Demographics + + + | Address | [address] | | | [place] [address] | + + + | Home Phone [...] | Poncho Omar Oquendo | ECON | [address] | | | | | [place] | | | | | [address] | | + + + + + | Marta Upton | ECON | [place] | | | | | [address] | | + + + + + Care Team Providers + +------+ + | Care Footwear Sales Coordinator Name | Role | Phone | [...] | | Personal | Reinaldo, | [address] | | | | | 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, | [place], | | | | | 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[address] | [place] [address] | | | | | neoplasm of | RICARDA LINDQUIST | Phone: | | | | | other site | [address] | [phone] | | | | | in | [place], | Fax: | | | | | gastrointest | [place] [address] | [phone] | | | | | inal tract | Phone: | | | | | | Procedures | [phone] | | | | | | CT Abdomen | Fax: | | | | | | Pelvis w | [phone] | | | | | | Contrast [...] + + | 09/25/ | Hospital | [facility] | Reinaldo, | Personal history of | | 2013 | Encounter | MED CTR MEDICAL | Epifanio Soler MD 3955 | malignant neoplasm | | | | ONCOLOGY CLINIC [address] | [facility] AGUILAR | of other site in | | | | [address] [place] | [address] [place], [place] | gastrointestinal | | | | [place] [address] | [address] | tract (Primary Dx); | | | | [phone] | | Chronic low back | | [...] Aura Upton is a 52-year-old woman from [place], [place] who h as 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 Tai Stanton of the [facility] April 28, 2012. ACTIVE DIAGNOSES: 1. Presentation with biliary colic in March of 2012 status post cholecystectomy and live r biopsy by Dr. Brandon Garcia March 29, 2012, pathological specimen [id number], analyzed by Dr. Bowers of [facility] and was notable for a poorly-differentiated adenoca rcinoma of the gallbladder. Liver biopsy demonstrated mild portal inflammation. 2. On April 28, 2012, she successfully underwent an R0 resection by Dr. Tai Stanton at [facility], pathological specimen [id number] was notable for the absence of any residual carcinoma within the gallbladder bed. However, 2/8 regional ly mph nodes contained regionally metastatic disease. 3. Consultation by Dr. Elva Grey of the [facility] on May returned the recommendation for adjuvant chemoradiation therapy following [id number] as follows: Capecitabine at 750 mg/m sq [...] THOMASTAI | | | | | | [place] [address] | | | | | | [phone] | | | | | | | [...] + | MISCELLANEOUS LAB | | | [phone] | + +---------+ + + | MISCELANIOUS LAB | | | [phone] | + +---------+ + + CA 19-9, [...] | | | | | | [place] [address] | | | | + + + [...] [address] | [place] [address] | [phone] | + + + + + CEA [...] [address] | [place] | [phone] | | [facility] | | [address] | | | - LABORATORY | | | | + + + + + | [address] | [address] | [place] | | | [facility] | | [address], [facility] | | | - LABORATORY | | [...] + | [address] | [address] | [place], [place] | [phone] | | [facility] | | [address] | | | - LABORATORY | | | | + + + + + | [facility] | [address] | [place], [place] | | | [facility] | | [address] [place] [address] | | | - LABORATORY | | [...] | | | | | mg/dL | [facility] | | | | | | MEDICAL | | | | | | CENTER - | | | | | | LABORATORY | | + + + + + + | eGFR, | >60Comment: GLOMERULAR | >=60 | [facility] | | | non- | FILTRATION | mL/min/1.73m2 | [facility] | | | [place] | RATE,ESTIMATED | | MEDICAL | | | | mL/min/1.98d1Jfrr than | | CENTER - | | [...] | | | | | mg/dL | [facility] | | | | | [...] + | [facility] | [address] | [place], [place] | [phone] | | [facility] | | [address] | | | - LABORATORY | | | | + + + + + | [facility] | [address] | [place], [place] | | | [facility] | | [address] | | | [...] + + | Performing | Address | City/[facility] | Phone Number | | Organization | | | | + + + + + | [facility] | [address] | [place], [place] | [phone] | | [facility] | | [address] | | | - LABORATORY | | | | + + + + + | [facility] | [address] | [place], [place] | | | [facility] | | [address] [place] [address] | | | - LABORATORY | | [...] + | [facility] | [address] | [place], [place] | [phone] | | [facility] | | [address] | | | - LABORATORY | | | | + + + + + | [facility] | [address] | [place], [place] | | | [facility] | | [address], [facility] | | | - LABORATORY | | [...] | non- | FILTRATION | mL/min/1.73m2 | [facility] | | | [place]er | RATE,ESTIMATED | | MEDICAL | | | | mL/min/1.41p0Lziy than | | CENTER - | | [...] | | | | | mg/dL | [facility] | | | | | [...] + | [address] | [address] | [place], [place] | [phone] | | [facility] | | [address] | | | - LABORATORY | | | | + + + + + | [address] | [address] | [place], [place] | | | [facility] | | [address], [facility] | | | - LABORATORY | | [...] [address] | [place] | [phone] | | [facility] | | [address] | | | - LABORATORY | | | | + + + + + | [address] | [address] | [place] | | | [facility] | | [address] | | | [...] + | [facility] | [address] | [place] | [phone] | | [facility] | | [address] | | | - LABORATORY | | | | + + + + + | [facility] | [address] | [place], [place] | | | [facility] | | [address] | | | [...] Dr, | | | | | | [place] [address] | | | | + + + [...] [address] | [place] [address] | [phone] | + + + + + documented in this encounter Visit Diagnoses + + | Diagnosis | + + | Personal history of malignant neoplasm of other site in gastrointestinal tract - | | Primary | + + | Chronic low back pain Lumbago | + + documented in this encounter
--- OUTSIDE RECORDS SUMMARY | ~2019-10-19 | XMS | Encounter Summary ---
Demographics + + + | Address | [address] | | | [place] [address] | + + + | Home Phone [...] Team Providers + +------+ + | Care Event Security Officer Name | Role | Phone | [...] | | | Reconstructive | Velma Whitfield Wolcott, | Septal Defect | | | | Services at [facility] | [place] [address] | | | | | [address] | [phone] | | | | | [facility] | | | | | | and Healing, | | | | | | Building [address], 5th | | | | | | Floor [place], [place] | | | | | | [address] | | | | | | [phone] | | | +--------+---------+ + + + [...] at this time. I reassured her regarding sophy richards. She is still having some pain and [...] Surgery [facility] [email or web address] [email or web address] documented in this encounte r Miscellaneous Notes Scan - Other, Faculty - 09/06/2008 12:55 PM PDT documented in t his encounter Plan [...]
--- OUTSIDE RECORDS SUMMARY | ~2019-10-19 | XMS | Encounter Summary ---
Demographics + + + | Address | [address] | | | [place] [address] | + + + | Home Phone [...] Author | [facility] | | | and [place] | + + + | Organization | [facility] | | | and [place] | + + + | Address | Unknown | + + + | Phone | Unavailable | + + + Support + + + + + | Name | Relationship | Address | Phone | + + + + + | Poncho Oquendo | ECON | [address] | | | | | [place] | | | | | [address] | | + + + + + | Marta Upton | ECON | [place] | | | | | [address] | | + + + + + Care Team Providers + +------+ + | Care Sausage Cooker Name | Role | Phone | [...] + + | 05/30/ | Refill | [facility] | Reinaldo, | Medication Refill | | 2018 | | MED CTR MEDICAL | Epifanio Soler MD 9808 | | | | | ONCOLOGY CLINIC 401 | [facility] | | | | | [address] [place] | [address] [place], [place] | | | | | [place] [address] | [id number] | | | | | [phone] | | | +--------+--------+ + + + [...] lorazepam approved. Please fax to: [facility] [facility] [place] [place] - [address] [facility] [address] [place] [address] Electronically signed by: Epifanio Najera MD 05/30/2018 11:51 documented in t his encounter Plan of Treatment +--------+---------+ + + + | Date | Type | Specialty | Care Team | Description | +--------+---------+ + + + | 10/29/ | Office | Urology | Pedro Green, | | | 2019 | Visit | | DO [address] | | | | | | [place] [address] | | | | | | [phone] | | | | | | | | +--------+---------+ + + + documented as of this encounter Visit Diagnoses + + | Diagnosis | + + | Gallbladder cancer, 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
--- OUTSIDE RECORDS SUMMARY | ~2019-10-19 | XMS | Encounter Summary ---
Demographics + + + | Address | [address] | | | [place] [address] | + + + | Home Phone [...] Team Providers + +------+ + | Care Orchestrator Name | Role | Phone | + [...] Pharmacy | | | | | | [address] | | | | | | [address] [place], [place] | | | | | | [address] | | | | | | [phone] | | | +--------+ + + + [...]
--- OUTSIDE RECORDS SUMMARY | ~2019-10-19 | XMS | Encounter Summary ---
Demographics + + + | Address | [address] | | | [place] [address] | + + + | Home Phone [...] + | Poncho Oquendo | ECON | [address] | | | | | [place] | | | | | [address] | | + + + + + | Marta Upton | ECON | [place] | | | | | [address] | | + + + + + Care Team Providers + +------+ + | Care Riverine Assault Craft Crewman Name | Role | Phone | + +------+ + | No, Physician | PCP | Unavailable | + +------+ + Reason for Visit + +--------+ + | Reason | Onset | Comments | | | Date | | + +--------+ + | Medication Refill | 08/27/ | | | | 2020 | | + +--------+ + Encounter Details +--------+--------+ + + + | Date | Type | Department | Care Team | Description | +--------+--------+ + + + | 08/27/ | Refill | [facility] | Vladimir Robles, | Medication Refill | | 2019 | | MED CTR MEDICAL | [address] | | | | | ONCOLOGY CLINIC [address] | [facility], | | | | | [address] | [place] [address] | | | | | [place] [address] | [phone] | | | | | [phone] | | | +--------+--------+ + + + [...] [address] | | | | | | [place] [address] | | | | | | [phone] | | | | | | | | +--------+---------+ + + + documented as of this encounter Visit Diagnoses Not on filedocumented in this encounter"
--- OUTSIDE RECORDS SUMMARY | ~2019-10-19 | XMS | Encounter Summary ---
Demographics + + + | Address | [address] | | | [place] [address] | + + + | Home Phone [...] | Author | [facility] | | | and [place] | + + + | Organization | [facility] | | | and [place] | + + + | Address | Unknown | + + + | Phone | Unavailable | + + + Support + + + + + | Name | Relationship | Address | Phone | + + + + + | Poncho Oquendo | ECON | [address] | | | | | [place] | | | | | [address] | | + + + + + | Marta Upton | ECON | [place] | | | | | [address] | | + + + + + Care Team Providers + +------+ + | Care Senior Java Software Engineer Name | Role | Phone | + +------+ + | Valeriy Carmona DO | TAWNYA | | + +------+ + Encounter Details +--------+ + + + + | Date | Type | Department | Care Team | Description | +--------+ + + + + | 12/17/ | Hospital | [facility] | Reinaldo, | Gallbladder cancer, | | 2015 | Encounter | MED CTR CHEMO | Epifanio Soler MD 4923 | carcinoma (HCC) | | | | INFUSION [address] [place] [address] [address] | (Primary Dx); | | | | [place], | [address] [place], [place] | Carcinoma of gall | | | | [place] [address] | [address] | bladder (HCC); | | | | [phone] | | Neoplasm related | | | [...] [place] | | | | | | [place] [address] | | | | | | [phone] | | | | | | | [...] + | [facility] [facility] | [address] | [place] | [phone] | | [facility] | | [address] | | | - LABORATORY | | [...] | non- | FILTRATION | mL/min/1.73m2 | [facility] | | | [place] | RATE,ESTIMATED | | MEDICAL | | | | mL/min/1.61n3Hutk than | | CENTER - | | [...] | | appended report. These | | [facility] | | | | results have [...] | an appended report. | | [facility] | | | | These results have [...] + | [facility] | [address] | [place] | [phone] | | [facility] | | [address] | | | - LABORATORY | | | | + + + + + CBC w/ Auto Differential (12/17/2014 1:22 PM PST) + + + + + + | Component | Value | Ref Range | Performed | Pathologist | | | | | At | Signature | + + + + + + | White Blood | 3.5 (L) | 4.0 - 11.0 K/uL | [facility] | | | Cells | | | [facility] | | | | | | MEDICAL | | | | | | CENTER - | | | | | | LABORATORY | | + + + + + + | Red Blood | 3.19 (L) | 3.70 - 5.20 [...] [address] | [place] | [phone] | | [facility] | | [address] | | | - LABORATORY | | [...] | | | | | | [place] [address] | | | | + + + [...] [address] | [place] [address] | [phone] | + + + + + [place] [...] + + | [facility] | [address] | [place] | [phone] | | [facility] | | [address] | | | - LABORATORY | | [...]
--- OUTSIDE RECORDS SUMMARY | ~2019-10-19 | XMS | Encounter Summary ---
Demographics + + + | Address | [address] | | | [place] [address] | + + + | Home Phone [...] Team Providers + +------+ + | Care Chicken Hanger Name | Role | Phone | + [...] | MD | | | | | [facility] 4th Floor [address] | | | | [address] | | | | | | Mailcode: CH4S | | | | | | [facility] | | | | | | and Healing, | | | | | | Building 1,4th Floor | | | | | | [place], [place] | | | | | | [address] | | | | | | [phone] | | | +--------+ + + + [...] Zhane Nuñez - 04/27/2012 1:41 PM PDTOR receptionist schedulerJeanine ,(name) called the [facility] on 04/27/12 (date) at 1pm(time) and requested delivery of the following inform ation to this patient: Surgery arrival date/ time:04/28/12 6am (date/time) Where to arrive AM of surgery [address] [place] [address] (location) Information delivered to patient as requested. documented in this encounter Plan of Treatment Not on filedocumented as of this encounter Visit Diagnoses Not on filedocumented in this encounter"
--- OUTSIDE RECORDS SUMMARY | ~2019-10-19 | XMS | Encounter Summary ---
Demographics + + + | Address | [address] | | | [place] [address] | + + + | Home Phone [...] Team Providers + +------+ + | Care Fixture Relamper Name | Role | Phone | + [...] | | 2012 | | Oncology at [facility] | [address] | Request | | | | [address] | [facility] [address] | | | | | Mailcode: CH7M | [place] [address] | | | | | [facility] | [phone] | | | | | and Brittny, | | | | | | [facility] | | | | | | [place], [place] | | | | | | [address] | | | | | | [phone] | | | +--------+ + + + [...] issue and easily remedied; also advised infusion dye tub tender obtain ins urance authorization for every [...]
--- OUTSIDE RECORDS SUMMARY | ~2019-10-19 | XMS | Encounter Summary ---
Demographics + + + | Address | [address] | | | [place] [address] | + + + | Home Phone [...] Providers + +------+ + | Care Fire Controlman Name | Role | Phone | + [...] & | Diagnoses | [facility] | [facility] Ultrasound Technol Onc | | | | Gynecology | Complex | Epic Dept | [address] | | | | | Cystic Mass, | | [address] | | | | | elevated | | [place] | | | | | CA125 per | | Pavilion, 7th | | | | | appt notes | | floor | | | | | | | [place], [place] | | | | | | | [address] | | | | | | | Phone: | | | | | | | [phone] | | | | | | | Fax: | | | | | | | [phone] | +--------+--------+ + + + + Encounter Details +--------+---------+ + + + | Date | Type | Department | Care Team | Description | +--------+---------+ + + + | 05/21/ | Office | [facility] | Miguel Seymour, | 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 We will call you with the results of the endometrial biopsy (sample of the lining of your u terus) as well as the CA-125 level (blood test). We have put in a request to [facility] to have your CT scan done there. [...] orders. Two pt. Identifiers used per protocol. 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 CA-125: 05/08/14: 101 ASSESSMENT: Aura Upton is a 53 [...] Aura will obtain a repeat CT in [place]. Patient seen and discussed with Dr. Kandis Galindo MD Obstetrics and Gynecology Resident PGY-4 I saw and evaluated the patient. I agree with the findings and the plan of care as shruthi ramirez in the resident s note. Patt Henderson M.D. Division of Gynecologic Oncology Department of Obstetrics and Gynecology documented in this encounter Miscellaneous Notes Scan - Yamila Benitez - 05/29/2014 11:48 AM PDTElectronically signed by Yamila Benitez at 11:48 AM PDTdocumented in this encounter Plan of [...] | + + + + + | [facility] - | [address] | [place] [address] | | | [place] | | | [...] | | | | | | Pathology Lynn | | | | | | Cedrick | | | | | | Myacol/PathologistT:05/22/14 | | | | | | /sg [...] # | | | | | | [id number]. Received 2 | | | | | [...] Philip | | | | | | MRhiannaPathologistCatei | | | | | | analia [...] + + + + | [facility] | [address] | [place] [address] | | | PATHOLOGY | [address] [...]
--- OUTSIDE RECORDS SUMMARY | ~2019-10-19 | XMS | Encounter Summary ---
Demographics + + + | Address | [address] | | | [place] [address] | + + + | Home Phone [...] Team Providers + +------+ + | Care Filter Washer And Presser Name | Role | Phone | + [...] & | Diagnoses | [facility] | [facility] Facility Supervisor Onc | | | | Gynecology | Complex | Epic Dept | [address] | | | | | Cystic Mass, | | [address] | | | | | elevated | | [place] | | | | | CA[address] per | | [address], 7th | | | | | appt notes | | floor | | | | | | | [place], [place] | | | | | | | [address] | | | | | | | Phone: | | | | | | | [phone] | | | | | | | Fax: | | | | | | | [phone] | +--------+--------+ + + + + Encounter Details +--------+---------+ + + + | Date | Type | Department | Care Team | Description | +--------+---------+ + + + | 07/23/ | Office | [facility] | Miguel Seymour, | 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 | [facility] [place] | [address] | (HCC) (Primary Dx); | | | | [address] | [address] | Pelvic mass; | | | | [address] | [place], [place] | Post-operative pain | | | | Alexis, 7th floor | [address] | | | | | [place], [place] | [phone] | | | | | [address] | | | | | | [phone] | | | +--------+---------+ + + + [...] might be different fr om the original. LOADER UNLOADER ONCOLOGY RETURN VISIT 07/23/2014 TREATMENT DIAGNOSIS: Stage [...] for pelvic recurrence (can be with regular LOADER UNLOADER) 3. Discharge from clinic unless other ethylbenzene converter helper oncology needs in future Patient seen and discussed with Dr. Henderson, who agrees with the assessment and plan. Lotus Mhaer MD EDI DEVELOPER R4 I saw and evaluated the patient [...]
--- OUTSIDE RECORDS SUMMARY | ~2019-10-19 | XMS | Encounter Summary ---
Demographics + + + | Address | [address] | | | [place] [address] | + + + | Home Phone [...] + | Poncho Oquendo | ECON | [address] | | | | | [place] | | | | | [address] | | + + + + + | Marta Upton | ECON | [place] | | | | | [address] | | + + + + + Care Team Providers + +------+ + | Care Supervisor Adult Education Name | Role | Phone | + +------+ + | Valeriy Carmona DO | TWANYA | | + +------+ + Encounter Details +--------+ + + + + | Date | Type | Department | Care Team | Description | +--------+ + + + + | 09/05/ | Orders Only | [facility] | Provider, | | | 2019 | | SYSTEM GENERIC OP | MD [address] | | | | | CONVERSION [address] | [address]. | | | | | [address] [place], [place] | [place] [address] | | | | | [address] | | | | | | [phone] | | | +--------+ + + + [...] [facility] | | | | | | [place] [address] | | | | | | [phone] | | | | | | | | +--------+---------+ + + + documented as of this encounter Visit Diagnoses Not on filedocumented in this encounter"
--- OUTSIDE RECORDS SUMMARY | ~2019-10-19 | XMS | Encounter Summary ---
Demographics + + + | Address | [address] | | | [place] [address] | + + + | Home Phone [...] | Author | [facility] | | | and [place] | + + + | Organization | [facility] | | | and [place] | + + + | Address | Unknown | + + + | Phone | Unavailable | + + + Support + + + + + | Name | Relationship | Address | Phone | + + + + + | Poncho Oquendo | ECON | [address] | | | | | [place] | | | | | [address] | | + + + + + | Marta Upton | ECON | [place] | | | | | [address] | | + + + + + Care Team Providers + +------+ + | Care Pneumatic Press Hand Name | Role | Phone | + +------+ + | Valeriy Carmona DO | TAWNYA | | + +------+ + Encounter Details +--------+ + + + + | Date | Type | Department | Care Team | Description | +--------+ + + + + | 10/18/ | Orders Only | [facility] | Reinaldo, | Cholangiocarcinoma | | 2015 | | MED CTR PROVIDER | Epifanio Soler MD [address] | ([facility]) (Primary Dx) | | | | ONCOLOGY [address] [facility] | | | | | [place], | [address] | | | | | [place] [address] | [id number] | | | | | [phone] | | | +--------+ + + + [...] | | | | | [place] [address] | | | | | | [phone] | | | | | | | | +--------+---------+ + + + documented as of this encounter Visit Diagnoses + + | Diagnosis | + + | 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
--- OUTSIDE RECORDS SUMMARY | ~2019-10-19 | XMS | Encounter Summary ---
Demographics + + + | Address | [address] | | | [place] [address] | + + + | Home Phone [...] | [facility] | | | and [place] | + + + | Organization | [facility] | | | and [place] | + + + | Address | Unknown | + + + | Phone | Unavailable | + + + Support + + + + + | Name | Relationship | Address | Phone | + + + + + | Poncho Oquendo | ECON | [address] | | | | | [place] | | | | | [address] | | + + + + + | Marta Upton | ECON | [place] | | | | | [address] | | + + + + + Care Team Providers + +------+ + | Care Disease Education Specialist Name | Role | Phone | [...] | | ONCOLOGY CLINIC [address] | | | | | [address] | [place] [address] | | | | | [place] [address] | [phone] | | | | | [phone] | | | +--------+ + + + [...] | | | | | [place] [address] | | | | | | [phone] | | | | | | | | +--------+---------+ + + + documented as of this encounter Visit Diagnoses Not on filedocumented in this encounter"
--- OUTSIDE RECORDS SUMMARY | ~2019-10-19 | XMS | Encounter Summary ---
Demographics + + + | Address | [address] | | | [place] [address] | + + + | Home Phone [...] + | Poncho Oquendo | ECON | [address] | | | | | [place] | | | | | [address] | | + + + + + | Marta Upton | ECON | [place] | | | | | [address] | | + + + + + Care Team Providers + +------+ + | Care Tank Setter Name | Role | Phone | + +------+ + | Valeriy Carmona DO | PCP | | + +------+ + Reason for Visit + +--------+ + | Reason | Onset | Comments | | | Date | | + +--------+ + | Lab Results | 10/10/ | | | | 2017 | | + +--------+ + Encounter Details +--------+ + + + + | Date | Type | Department | Care Team | Description | +--------+ + + + + | 10/10/ | Telephone | [facility] | Reinaldo, | Lab Results | | 2017 | | MED CTR MEDICAL | Epifanio Soler MD [address] | | | | | ONCOLOGY CLINIC [address] | [facility] | | | | | [address] | [address] [place], [place] | | | | | [place] [address] | [address] | | | | | [phone] | | | +--------+ + + + [...] Telephone Encounter - Epifanio Najera MD - 10/10/2017 11:11 AM PDTNoted. Electronica lly signed by: Epifanio Najera MD 10/10/2017 11:11 elephone Sonia Dale RN - 10/10/2017 11:01 AM PDTOption Care wants Dr Najera to know that there has been a change in blood levels for patient: On 09/29/17 WBC 7, hemoglobin 8.9, platelets 125. On 10/06/17 WBC 2.8, hemoglobin 8.5, platel ets 53. documented in this encounter Plan of Treatment +--------+---------+ + + + | Date | Type | Specialty | Care Team | Description | +--------+---------+ + + + | 10/29/ | Office | Urology | Pedro Green, | | | 2019 | Visit | | DO [address] | | | | | | [place] [address] | | | | | | [phone] | | | | | | | | +--------+---------+ + + + documented as of this encounter Visit Diagnoses Not on filedocumented in this encounter"
--- OUTSIDE RECORDS SUMMARY | ~2019-10-19 | XMS | Encounter Summary ---
Demographics + + + | Address | [address] | | | [place] [address] | + + + | Home Phone [...] Providers + +------+ + | Care Card Doffer Name | Role | Phone | + +------+ + | Prudencio Isaac MD | PCP | | + +------+ + Encounter Details +--------+ + + + + | Date | Type | Department | Care Team | Description | +--------+ + + + + | 04/21/ | Telephone | [facility] | Tai Stanton, | | | 2012 | | Center at [facility] [address] | [address] | | | | | [facility] | [facility] | | | | | for [facility] and | [place], [place] | | | | | [facility], [place] [address] | [address] | | | | | [place], [place] | [phone] | | | | | [address] | | | | | | [phone] | | | +--------+ + + + [...] Please call pt on her cell TEL [phone] signed by Michelle carmen 04/21/2012 11:38 AM PSTdocumented in this encounter Plan of Treatment Not on filedocumented as of this encounter Visit Diagnoses Not on filedocumented in this encounter"
--- OUTSIDE RECORDS SUMMARY | ~2019-10-19 | XMS | Encounter Summary ---
Demographics + + + | Address | [address] | | | [place] [address] | + + + | Home Phone | | + + + | Preferred Language | Unknown | + + + | Marital Status | | + + + | Orthodoxy Affiliation | Unknown | + + + | Race | White | + + + | Ethnic Group | Not or | + + + Author + + + | Author | [facility] | | | and [place] | + + + | Organization | [facility] | | | and [place] | + + + | Address | Unknown | + + + | Phone | Unavailable | + + + Support + + + + + | Name | Relationship | Address | Phone | + + + + + | Poncho Oquendo | ECON | [address] | | | | | [place] | | | | | [address] | | + + + + + | Marta Upton | ECON | [place] | | | | | [address] | | + + + + + Care Team Providers + +------+ + | Care Boat Designer Name | Role | Phone | [...] in | [address] | | | | | breast | [address] | [place], | | | | | Procedures | STREET | [place] | | | | | LUPE BREAST | [place], | [address] | | | | | BIOPSY RIGHT | [place] | Phone: | | | | | | [address] | [phone] | | | | | | Phone: | Fax: | | | | | | [phone] | [phone] | | | | | | Fax: | | | | | | | [phone] | | +--------+--------+ + + + + Encounter Details +--------+ + + + + | Date | Type | Department | Care Team | Description | +--------+ + + + + | 03/05/ | Hospital | [facility] | [place], | Mass of breast, | | 2017 | Encounter | MED CTR MAMMOGRAPHY | Epifanio Soler MD [address] | right | | | | [address] | [address] | | | | | [place], [place] | [address] [place], [place] | | | | | [address] | [address] | | | | | [phone] | | | | | | | [place], [address] | | +--------+ + + + [...] TAI | | | | | | [place] [address] | | | | | | [phone] | | | | | | | [...] At | + + + | EXAM: [facility] TOMOSYN DIAGNOSTIC RIGHT dated 03/05/2016 12:50 PM | [facility] | | HISTORY:EVALUATE THE STABILITY OF MAMMOGRAPHIC ASYMMETRIES AND A | | | SMALL,. TECHNIQUE: Unilateral digital CC and MLO. Shree | | | synthesis is performed. CAD utilized. COMPARISON: Mammograms | | | dating back to 2013 and 2016 FINDINGS: Scattered areas of | [...] + + | Performing | Address | City/State[facility] [facility] | Phone Number | | [...]
--- OUTSIDE RECORDS SUMMARY | ~2019-10-19 | XMS | Encounter Summary ---
Demographics + + + | Address | [address] | | | [place] [address] | + + + | Home Phone [...] Author | [facility] | | | and [place] | + + + | Organization | [facility] | | | and [place] | + + + | Address | Unknown | + + + | Phone | Unavailable | + + + Support + + + + + | Name | Relationship | Address | Phone | + + + + + | Poncho Oquendo | ECON | [address] | | | | | [place] | | | | | [address] | | + + + + + | Marta Upton | ECON | [place] | | | | | [address] | | + + + + + Care Team Providers + +------+ + | Care Remote Mortgage Underwriter Name | Role | Phone | + [...] | | Carcinoma | Re[place]do, | [address] | | | | | of opal | Epifanio Soler, | [place], | | | | | bladder | [address] | [place] [address] | | | | | (HCC) | [address] | Phone: | | | | | Procedures | [address] | [phone] | | | | | CT Chest | [place], | Fax: | | | | | Abdomen | [place] [address] | [phone] | | | | | Pelvis w | Phone: | | | | | | Contrast | [phone] | | | | | | | Fax: | | | | | | | [phone] | | +--------+--------+ + + + + [...] ONCOLOGY CLINIC [address] | [facility] | (Primary Dx) | | | | [address] | [address] [place] | | | | | [place] [address] | [address] | | | | | [phone] | | | +--------+ + + + [...] [facility] | | | | | | [place] [address] | | | | | | [phone] | | | | | | | [...] intravenous administration of 100 mL | | [id number] contrast. Oral contrast was administered. Multiplanar reformatted [...]
--- OUTSIDE RECORDS SUMMARY | ~2019-10-19 | XMS | Encounter Summary ---
Demographics + + + | Address | [address] | | | [place] [address] | + + + | Home Phone [...] Team Providers + +------+ + | Care Store Cashier Name | Role | Phone | + [...] | | | | | Procedures | [place], [place] | [place], [place] | | | | | [place] | [address] | [address] | | | | | ENT / FACIAL | Phone: | Phone: | | | | | PLASTIC | [phone] | [phone] | | | | | SURGERY | Fax: | Fax: | | | | | | [phone] | [phone] | +--------+--------+ + + + + Encounter [...] | | | Reconstructive | Velma Whitfield [place], | Septal Defect | | | | Services at [facility] | [place] [address] | | | | | [address] | [phone] | | | | | [facility] | | | | | | and Brittny, | | | | | | Building | | | | | | Floor [place], [place] | | | | | | [address] | | | | | | [phone] | | | +--------+---------+ + + + [...] PM PDTClinic: Facial Plastic and Reconstructive Surgery Robert Upton is a 47 y.o. female who [...] today. Photos obtained. She met with my state manager maximo hirsch. Followup arranged for preop. Time spent with patient /family, reviewing studies/ recor ds 20 minutes, with >50 % of time spent in consultation and coordination of care. Virgilio Buck MD FACS Professor Facial Plastic and Reconstructive Surgery Dept. of Otolaryngology/Head and Neck Surgery [facility] tel fax email [email or web address] documented in this encounte r Plan of [...]
--- OUTSIDE RECORDS SUMMARY | ~2019-10-19 | XMS | Encounter Summary ---
Demographics + + + | Address | [address] | | | [place] [address] | + + + | Home Phone [...] | Author | [facility] | | | and [place] | + + + | Organization | [facility] | | | and [place] | + + + | Address | Unknown | + + + | Phone | Unavailable | + + + Support + + + + + | Name | Relationship | Address | Phone | + + + + + | Poncho Oquendo | ECON | [address] | | | | | [place] | | | | | [address] | | + + + + + | Marta Upton | ECON | [place] | | | | | [address] | | + + + + + Care Team Providers + +------+ + | Care Executive Secretary Name | Role | Phone | + +------+ + | Valeriy Carmona DO | PCP | | + +------+ + Reason for Visit +--------+--------+ + | Reason | Onset | Comments | | | Date | | +--------+--------+ + | Other | 09/02/ | | | | 2014 | | +--------+--------+ + Encounter Details +--------+ + + + + | Date | Type | Department | Care Team | Description | +--------+ + + + + | 09/02/ | Telephone | [facility] | Reinaldo, | Other | | 2014 | | MED CTR MEDICAL | Epifanio Soler MD [address] | | | | | [facility] CLINIC [facility] | [facility] | | | | | [address] | [address] [place], [place] | | | | | [place] [address] | [address] | | | | | [phone] | | | +--------+ + + + [...] Telephone Encounter - Sonia Renae RN - 09/02/2014 3:23 PM PDTRenzo has spoken direc tly with Dr. Najera, issue taken care of. elephone Encounter - Tila Baca - 09/02/2014 2:59 PM PDTRenzo has Aura in the office right now with a UTI and would like to speak with a nurse jaclyn hannah call him [phone] signed by Tila Baca at 09/02/2014 3:00 PM PDTdocumented in this encounter Plan of Treatment +--------+---------+ + + + | Date | Type | Specialty | Care Team | Description | +--------+---------+ + + + | 10/29/ | Office | Urology | Pedro Green, | | | 2019 | Visit | | DO [address] | | | | | | [place] [address] | | | | | | [phone] | | | | | | | | +--------+---------+ + + + documented as of this encounter Visit Diagnoses Not on filedocumented in this encounter"
--- OUTSIDE RECORDS SUMMARY | ~2019-10-19 | XMS | Encounter Summary ---
Demographics + + + | Address | [address] | | | [place] [address] | + + + | Home Phone [...] + | Poncho Oquendo | ECON | [address] | | | | | [place] | | | | | [address] | | + + + + + | Marta Upton | ECON | [place] | | | | | [address] | | + + + + + Care Team Providers + +------+ + | Care Trap Puller Name | Role | Phone | + [...] + + | 10/18/ | Telephone | [facility] | Pedro Green, | Other (Canceling | | 2018 | | UROLOGY [address] | DO [address] | Appointment) | | | | [address] | [place] [address] | | | | | [place], [place] | [phone] | | | | | [address] | | | | | | [phone] | | | +--------+ + + + [...] Details: Calling to cancel 10-19-18 appointment. Call: [phone] If this is a symptom based call, was patient offered triage? Not Applicable If this is a symptom based call and you were unable to immediately transfer the call to a jaclyn maradiaga surveillance sensor operator was caller made aware that if at [...] | | | | | [place] [address] | | | | | | [phone] | | | | | | | | +--------+---------+ + + + documented as of this encounter Visit Diagnoses Not on filedocumented in this encounter"
--- OUTSIDE RECORDS SUMMARY | ~2019-10-19 | XMS | Encounter Summary ---
Demographics + + + | Address | [address] | | | [place] [address] | + + + | Home Phone [...] Team Providers + +------+ + | Care Rubber Flap Tuber Machine Operator Name | Role | Phone | + +------+ + | Prudencio Isaac MD | PCP | | + +------+ + Encounter Details +--------+------+ + + + | Date | Type | Department | Care Team | Description | +--------+------+ + + + | 04/12/ | Lab | Laboratory at [facility] | | Gallbladder cancer | | 2012 | | [address] | | (HCC) | | | | [place] [facility] | | | | | | and Healing, | | | | | | Building [address] | | | | | | [place], [place] | | | | | | [address] | | | | | | [phone] | | | +--------+------+ + + + [...] | + + + + + | [facility] | [address] | [place] [address] | | | SERVICES, CORE | PARK [...] by | | | | | | [address] | | | | | | Lavonne James, [facility],[place] | | | | | | [address] | | | | | | [phone]. | | | | | | Lala [...] [facility] | [address] | [place], [place] | | | [facility] | | [address] | | + + + + + [...] [place] | | | | | | [facility] [address] | | | | | | [phone]. | | | | | | Lala [...] [facility] | [address] | [place], [place] | | | [facility] | | [address] | | + + + + + [...] | + + + + + | [facility] | [address] | [place] [address] | | | SERVICES, CORE | NEAL [...] | LABORATORY | | | [place] | | | SERVICES, | | | [...] | + + + + + | [facility] | [address] | [place] [address] | | | [facility] | | | | | [facility] + [facility]ALING | | | | + + + + + documented in this encounter Visit Diagnoses + + | Diagnosis | + + | Gallbladder cancer (HCC) Malignant neoplasm of gallbladder | + + documented in this encounter"
--- OUTSIDE RECORDS SUMMARY | ~2019-10-19 | XMS | Encounter Summary ---
Demographics + + + | Address | [address] | | | [place] [address] | + + + | Home Phone [...] + | Poncho Oquendo | ECON | [address] | | | | | [place] | | | | | [address] | | + + + + + | Marta Upton | ECON | [place] | | | | | [address] | | + + + + + Care Team Providers + +------+ + | Care Dental Laboratory Technician Apprentice Name | Role | Phone | [...] | Procedures | [address] | [place] [address] | | | | | IN OFFICE | [place], | Phone: | | | | | OUTPATIENT | [place] [address] | [phone] | | | | | VISIT 25 | | Fax: | | | | | MINUTES | | [phone] | +--------+--------+ + + + + Encounter Details +--------+ + + + + | Date | Type | Department | Care Team | Description | +--------+ + + + + | 11/22/ | Hospital | [facility] | TravisVladimir, | Cholangiocarcinoma | | 2015 | Encounter | MED CTR MEDICAL | [address] | (HCC) (Primary Dx); | | | | ONCOLOGY CLINIC [address], | Pancytopenia due to | | | | [address] [place] | [place] [address] | antineoplastic | | | | [place] [address] | [phone] | chemotherapy (HCC) | | | | [phone] | | | +--------+ + + + [...] fr om the original. Hematology/Oncology Progress Note [facility] Pt. Name/Age/: Aura Upton 54 y.o. 1960 Med. Record Number: [id number] Date of admission: 11/22/2014 Identifying Statement: Aura Upton is a 54 y.o. female from [address] [place] [address] with Recurrent Cholangiocarcinoma. The patient chart and medications were reviewed in detail and the patient was seen and exam ined. History of Present Illnesses, their Current Assessments and Plans: Gallbladder cancer, carcinoma Overview ACTIVE DIAGNOSES: Recurrent cholangiocarcinoma. 1. Presentation with biliary colic in March of 2012; status post cholecystectomy and hailee er biopsy by Dr. Brandon Garcia March 29, 2012, pathological specimen [id number], analyzed by Dr. Bowers of [facility] and was notable for a poorly-differentiated adenoc arcinoma of the gallbladder. Liver biopsy demonstrated mild portal inflammation. 2. On April 28, 2012, she successfully underwent an R0 resection by Dr. Tai Stanton at [facility], pathological specimen [id number] was notable for the absence of any residual carcinoma within the gallbladder bed. However, 2/8 regional lym ph nodes contained regionally metastatic disease. 3. Consultation by Dr. Elva Grey of the [facility] on May returned the recommendation for adjuvant chemoradiation therapy following [id number] as follows: Capecitabine at 750 mg/m sq [...] staging by Dr. Oziel Casillas of the [facility]. Pathological a nalysis was notable for 9.5 cm mass replacing the left tube and ovary extensively involving the ovarian stroma with focal involvement of the fallopian tube stroma. The tumor was poorly differentiated carcinoma with neuroendocrine features showing a similar histopathology marcy nevaeh to the previously excised lymph node from the gallbladder bed in 2012. In addition, immu nohistochemistry positive for CDX2 [...] obtained by Dr. Richie Thayer of the [facility] who returned the recommendation [...] the recommendations of [facility] the [facility] with gemcitabine at 1000 mg per meter squared on day one and day 8 wi th cisplatin 25 mg meter squared on day one and day 8 of a Q 21 day cycle beginning on July 26, 2014 complicated by grade 3 neutropenia and grade [address] scan of the chest, abdomen and pelvis that [facility] on September 16, 2014 demonstrated [...] time. Plan: 1. Proceed with day 1 cis-pitka's point and gemcitabine as outlined above. 2. Neutropenic [...] low bunny k and posterior neck pain 09/23. Neurologic: States she continues to have occasional [...] has been changed since signin Order Audit Revelo amitriptyline (ELAVIL) 10 mg tablet (Taking) Take 10 mg by mouth nightly. Number of times this order has been changed since signin Order Audit Revelo dexamethasone (DECADRON) 4 mg tablet (Taking) Take one tablet PO as directed. Number of times this order has been changed since signin Order Audit Revelo docusate calcium (SURFAK) 240 mg capsule (Taking) Take 240 mg by mouth as needed. Number of times this order has been changed since signin Order Audit Revelo fish oil 1,000 mg capsule (Taking) Take 1,000 mg by mouth Daily. Number of times this order has been changed since signin Order Audit [facility] HYDROcodone-acetaminophen (VICODIN) 5-500 mg per tablet (Taking) Take 1 tablet by mouth e very 4 hours as needed. Number of times this order has been changed since signin Order Audit [facility]o MULTIPLE VITAMIN PO (Taking) Take by mouth Daily. Number of times this order has been changed since signin Order Audit Revelo ondansetron (ZOFRAN ODT) 8 mg disintegrating tablet (Taking) Take 8 mg by mouth every 8 h ours as needed for Nausea. Number of times this order has been changed since signin Order Audit Revelo Probiotic Product (PROBIOTIC DAILY PO) (Taking) Take by mouth Daily. Number of times this order has been changed since signin Order Audit Revelo Allergy: Allergies Allergen Reactions Sulfa Antibiotics Rash [...] 11/22/14 83.5 kg (184 lb 1.4 oz) 09/17/15 83.5 kg (184 lb 1.4 oz) 09/16/14 [...] this chart may have been created with [employer] voice recognition software. Occasi onal wrong-word or [...] [address] | | | | | | [place] [address] | | | | | | [phone] | | | | | | | [...]
--- OUTSIDE RECORDS SUMMARY | ~2019-10-19 | XMS | Encounter Summary ---
Demographics + + + | Address | [address] | | | [place] [address] | + + + | Home Phone [...] + | Poncho Oquendo | ECON | [address] | | | | | [place] | | | | | [address] | | + + + + + | Marta Upton | ECON | [place] | | | | | [address] | | + + + + + Care Team Providers + +------+ + | Care Manager Land Name | Role | Phone | + +------+ + | Valeriy Carmona DO | TAWNYA | | + +------+ + Encounter Details +--------+ + + + + | Date | Type | Department | Care Team | Description | +--------+ + + + + | 08/27/ | Hospital | [facility] | Valeriy Carmona, | Breast nodule | | 2016 | Encounter | MED CTR ULTRASOUND | DO [address] | | | | | [address] [place] | [place] [address] | | | | | [place] | [phone] | | | | | [address] | | | | | | [phone] | [address]ee [address] | | | | | | Kati, Technologist | | | | | | [place] | | | | | | [address] | | +--------+ + + + + [...] THOMASTAI | | | | | | [place] [address] | | | | | | [phone] | | | | | | | [...]
--- OUTSIDE RECORDS SUMMARY | ~2019-10-19 | XMS | Encounter Summary ---
Demographics + + + | Address | [address] | | | [place] [address] | + + + | Home Phone [...] + | Poncho Oquendo | ECON | [address] | | | | | [place] | | | | | [address] | | + + + + + | Marta Upton | ECON | [place] | | | | | [address] | | + + + + + Care Team Providers + +------+ + | Care Bill Recapitulation Clerk Name | Role | Phone | + +------+ + | Valeriy Carmona DO | TAWNYA | | + +------+ + Encounter Details +--------+ + + + + | Date | Type | Department | Care Team | Description | +--------+ + + + + | 08/27/ | Hospital | [facility] | Valeriy Carmona, | Breast nodule | | 2016 | Encounter | MED CTR MAMMOGRAPHY | DO [address] | | | | | [address] | [facility] [place] [address] | | | | | [place] | [phone] | | | | | [address] | | | | | | [phone] | [place] | | +--------+ [...] [address] | | | | | | [place] [address] | | | | | | [phone] | | | | | | | [...]
--- OUTSIDE RECORDS SUMMARY | ~2019-10-19 | XMS | Encounter Summary ---
Demographics + + + | Address | [address] | | | [place] [address] | + + + | Home Phone [...] Team Providers + +------+ + | Care Fibre Technologist Name | Role | Phone | + +------+ + | Tomasa Wagner | PCP | | + +------+ + Encounter Details +--------+ + + + + | Date | Type | Department | Care Team | Description | +--------+ + + + + | 07/12/ | Abstract | Digestive Health | Tai Stanton, | | | 2013 | | Center at [facility] [address] | [address] | | | | | [facility] | [facility] | | | | | for Health and | [place], [place] | | | | | [facility] [place] [address] | [address] | | | | | [place], [place] | [phone] | | | | | [address] | | | | | | [phone] | | | +--------+ + + + [...]
--- OUTSIDE RECORDS SUMMARY | ~2019-10-19 | XMS | Encounter Summary ---
Demographics + + + | Address | [address] | | | [place] [address] | + + + | Home Phone [...] Author | [facility] | | | and [place] | + + + | Organization | [facility] | | | and [place] | + + + | Address | Unknown | + + + | Phone | Unavailable | + + + Support + + + + + | Name | Relationship | Address | Phone | + + + + + | Poncho Oquendo | ECON | [address] | | | | | [place] | | | | | [address] | | + + + + + | Marta Upton | ECON | [place] | | | | | [address] | | + + + + + Care Team Providers + +------+ + | Care Automotive Wholesale Parts Advisor Name | Role | Phone | [...] | | | | gallbladder | [address] | [address] | | | | | (HCC) | [place] | [place] | | | | | Procedures | [address] | [address] | | | | | [place] OFFICE | Phone: | [place] | | | | | OUTPATIENT | [phone] | [address] | | | | | VISIT 25 | Fax: | Phone: | | | | | MINUTES | [phone] | [phone] | | | | | | | Fax: | | | | | | | [phone] | +--------+--------+ + + + + Encounter Details +--------+ + + + + | Date | Type | Department | Care Team | Description | +--------+ + + + + | 12/17/ | Hospital | [facility] | Reinaldo, | Gallbladder cancer, | | 2015 | Encounter | MED CTR MEDICAL | Chad Soler MD [address] | carcinoma (HCC) | | | | ONCOLOGY CLINIC [address] | [facility] | (Primary Dx) | | | | [address] | [address] [place], [place] | | | | | [place] [address] | [address] | | | | | [phone] | | | +--------+ + + + [...] from the original. Hematology/Oncology Progress Note [facility] Pt. Name/Age/: Aura Upton 54 y.o. 1960 Med. Record Number: [id number] Date of admission: 12/17/2014 Identifying Statement: Aura Upton is a 54 y.o. female from [address] [place] [address] with Recurrent Cholangiocarcinoma. The patient chart and [...] Brandon Garcia March 29, 2012, pathological specimen [id number], analyzed by Dr. Bowers of [facility] and was notable for a poorly-differentiated adenoc arcinoma of the gallbladder. Liver biopsy demonstrated mild portal inflammation. 2. On April 28, 2012, she successfully underwent an R0 resection by Dr. Tai Stanton at [facility], pathological specimen [id number] was notable for the absence of any residual carcinoma within the gallbladder bed. However, 2/8 regional lym ph nodes contained regionally metastatic disease. 3. Consultation by Dr. Elva Grey of the [facility] on May returned the recommendation for adjuvant chemoradiation therapy following [id number] as follows: Capecitabine at 750 mg/m sq [...] staging by Dr. Oziel Casillas of the [facility]. Pathological analysis was notable for [...] 7. Consultation with Dr. Elva Grey the [facility] in June 26, 2014 who recommended additional chemotherapy was cisplatin at 75 mg meter squared on day 1 a nd gemcitabine 1250 mg per meter squared on day one and day 8 of acute 21 day cycle for 6-8 cycles. A second opinion was obtained by Dr. Richie Thayer of the [facility] iance who returned the recommendation [...] recommendations of Dr. Richie Thayer of the [facility] with gemcitabine at 1000 mg per meter squared on day one and day 8 w ith cisplatin 25 mg meter squared on day one and day 8 of a Q 21 day cycle beginning on July 26, 2014 complicated by grade 3 neutropenia and grade [address]. 10[address] scan of the chest, abdomen and pelvis that [facility] on September 16, 2014 demonstrated no radiographic evidence of disease. 11. Completion of 6 cycles of cisplatin/gemcitabine chemotherapy at the [facility] in [place], [place] on November 29, 2014. 12. Repeat CT scan of the chest, abdomen and pelvis that [facility] on December 17, 2014 demonstrated no radiographic evidence of disease Current Assessment & Plan Aura returned to clinic on December 17, [address] scan earlier today demonstrat es no evidence of recurrence of her cholangiocarcinoma. Plan; Cross over to observation. Follow up in two months for port draw for labs and port ga us. In the interim, she will see Dr. Richie Thayer at the [facility]. Review of Systems: Constitutional: Reports that her [...] this chart may have been created with [employer] voice recognition software. Occasi onal wrong-word or [...] will see Dr. Richie Thayer at the [facility].El ectronically signed by Chad Riggins MD at 12/17/2014 7:24 PM PSTdocumented in this encounter Plan of Treatment +--------+---------+ + + + | Date | Type | Specialty | Care Team | Description | +--------+---------+ + + + | 10/29/ | Office | Urology | Pedro Green, | | | 2019 | Visit | | DO [address] [facility] | | | | | | [place] [address] | | | | | | [phone] | | | | | | | [...]
--- OUTSIDE RECORDS SUMMARY | ~2019-10-19 | XMS | Encounter Summary ---
Demographics + + + | Address | [address] | | | [place] [address] | + + + | Home Phone [...] Providers + +------+ + | Care Car Deliverer Name | Role | Phone | + +------+ + | Tomasa Wagner | PCP | | + +------+ + Encounter Details +--------+ + + + + | Date | Type | Department | Care Team | Description | +--------+ + + + + | 07/11/ | Abstract | Digestive Health | Tai Stanton, | | | 2012 | | Center at [facility] [address] | [address] [facility] | | | | | [facility] | [facility] | | | | | for Health and | [place], [place] | | | | | [facility] [place] [address] | [address] | | | | | [place], [place] | [phone] | | | | | [address] | | | | | | [phone] | | | +--------+ + + + [...]
--- OUTSIDE RECORDS SUMMARY | ~2019-10-19 | XMS | Encounter Summary ---
Demographics + + + | Address | [address] | | | [place] [address] | + + + | Home Phone [...] Providers + +------+ + | Care General Dentist Name | Role | Phone | + +------+ + | Prudencio Isaca MD | PCP | | + +------+ [...] MD | | | | | [facility]id [facility]ay | Rubio Acosta, | | | | | Hospital Admitting | | | | | | Desk Located on the | | | | | | 9th floor | | | | | | [place], [place] | | | | | | [address] | | | +--------+ + + + [...] by | | D - | | uRbio Acosta, | Rubio Acosta, | | Periph [...] be different from the original. Aura Upton [id number] No Known Allergies Past Surgical History Procedure [...] be different from the original. Aura Upton [id number] No Known Allergies NPO: Last Vitals: Preg [...] Preoperative Adult Anesthesia Plan Last edited 04/27/12 8729 by Kami Mejia NP ROS Pulmonary: Within [...] Resident RUBIO ACOSTA AMArterial Line - Rubio Aocsta Md - 04/28/2012 9:52 AM PDTProcedure ART [...]
--- OUTSIDE RECORDS SUMMARY | ~2019-10-19 | XMS | Encounter Summary ---
Demographics + + + | Address | [address] | | | [place] [address] | + + + | Home Phone [...] Providers + +------+ + | Care Power Builder Developer Name | Role | Phone | + +------+ + | Tomasa Wagner | PCP | | + +------+ + Reason for Visit + +--------+ + | Reason | Onset | Comments | | | Date | | + +--------+ + | Constipation | 06/11/ | Miguel Seymour | | | 2014 | | + +--------+ + Encounter Details +--------+ + + + + | Date | Type | Department | Care Team | Description | +--------+ + + + + | 06/11/ | Telephone | [facility] | Miguel Seymour, | Constipation | | 2015 | | [facility] | [address] | (Miguel Seymour) | | | | [address] | [facility] | | | | | [address] | [place], [place] | | | | | Colleenilievelio, [address] [place] [address] | [address] | | | | | [place], [place] | [phone] | | | | | [address] | | | | | | [phone] | | | +--------+ + + + [...] encounter Miscellaneous Notes Telephone Encounter - Adina Zazueta, RN - 06/11/2014 4:49 PM PDTPer : new RX fo r joe approved #30, pt to have bilateral doppler US of both legs due to recent surgery an d hx gallbladder ca. Pt to be seen for post op on 06/18. Returned call to pt, reviewed recommendation from to have bilateral US of legs d ue to history of cancer and abdominal surgery, also reported ok for additional zofran and co nfirmed pharmacy and again reviewed constipation instructions. Also per , to see p t on 06/18 for post op rather than 06/25. Pt reports that she will present to local ER at [facility] and keep this office posted. elephone Encounter - Adina Zazueta, RN - 06/11/2014 3:53 PM PDTReturned call to pt. She reports that she was discharged on Tuesday. Is concerned that she has not had a BM and her left leg from knee shen n through foot is swollen. Feels that her leg was swollen when she was in the hospital and h as slightly worsened over the last few days. Reports that she is elevating her legs when sit ting, feels that the swelling is the same in the am and pm, no pain to leg or knee and no re dness. Reports that she is taking her lovenox injections as prescribed. Pt also concerned that she has not had a BM, reports that she has a decreased appetite due to feeling full, no abdominal pain, reports that she is walking and drinking fluids and usin g her Incentive spirometer. Reports that she tried a dose of metamucil yesterday, drank prun e juice on Tuesday and yesterday, reports to be voiding ok, confirms passing gas. Reviewed re commendations if the prune juice or metamucil is not helping, she should try Miralax or Milk of Magnesia or Senakot, reviewed that she will most likely need several doses before result s. Pt reports that her pain is well controlled, taking 3 tabs of oxycodone every 4-4.5 hours with good relief. She also reports that she has used ondansetron prior to surgery with good results and is no t comfortable with taking the reglan due to possible side effects, pt requesting to have ar aldana rica of joe. Reviewed with pt that I would review her report with and call her back with lester mmendations. Pt agreed to plan. elephone Encounter - Lucien Gauthiere - 06/11/2014 2:20 PM PDTPatient calling, states she has not had a bowel mov ement since before her surgery. Patient states she has consumed two cans of prune juice; one yesterday, one today. Patient states her left leg and foot are swollen as well. Patient requests a call back as soon as possible. [phone] documented in this encoun ter Plan of Treatment Not on filedocumented as of this encounter Visit Diagnoses + + | Diagnosis | + + | Nausea - Primary Nausea alone | + + | Pelvic mass Abdominal or pelvic swelling, mass or lump, unspecified site | + + documented in this encounter"
--- OUTSIDE RECORDS SUMMARY | ~2019-10-19 | XMS | Encounter Summary ---
Demographics + + + | Address | [address] | | | [place] [address] | + + + | Home Phone [...] Team Providers + +------+ + | Care Food Service Agent Name | Role | Phone | [...] Mojica | treatment | | | | [facility] [address] | | | | | [facility] | [place] [address] | | | | | Health [facility] Healing, | [phone] | | | | | [facility] | | | | | | [place], [place] | | | | | | [address] | | | | | | [phone] | | | +--------+ + + + [...]
--- OUTSIDE RECORDS SUMMARY | ~2019-10-19 | XMS | Encounter Summary ---
Demographics + + + | Address | [address] | | | [place] [address] | + + + | Home Phone [...] Team Providers + +------+ + | Care Coil Inspector Name | Role | Phone | [...] + + | 06/28/ | Telephone | MD[facility] | Elva Grey, | Medical Records | | 2015 | | Clinics at | [address] [facility] | Release | | | | [facility] [address] | [facility] [address] | | | | | [facility] | [place] [address] | | | | | Health and Healing, | [phone] | | | | | [facility] 2 | | | | | | [place], [place] | | | | | | [address] | | | | | | [phone] | | | +--------+ + + + [...] Willis - 06/28/2014 8:40 AM PDTRobelista with [facility] calling, stat es that pt has a second opinion appointment with them on Saturday 07/01. Requesting most recen t chart note from visit with Dr. Grey be faxed to them. Jdujkdkuumqfcz s igned by Chikis Omer at 06/28/2014 8:41 AM PDTdocumented in this encounter Plan of Treatment Not on filedocumented as of this encounter Visit Diagnoses Not on filedocumented in this encounter"
--- OUTSIDE RECORDS SUMMARY | ~2019-10-19 | XMS | Encounter Summary ---
Demographics + + + | Address | [address] | | | [place] [address] | + + + | Home Phone [...] + | Poncho Oquendo | ECON | [address] | | | | | [place] | | | | | [address] | | + + + + + | Marta Upton | ECON | [place] | | | | | [address] | | + + + + + Care Team Providers + +------+ + | Care Transit Worker Name | Role | Phone | + +------+ + PCP | Unavailable | + +------+ + Encounter Details +--------+ + + + + | Date | Type | Department | Care Team | Description | +--------+ + + + + | 09/28/ | Hospital [facility] | Dilip Hakan | | | 2011 | Encounter | MED CTR XRAY [address] | | | | | [place] | [place], [place] | | | | | [place] [address] | [address] | | | | | [phone] | | | +--------+ + + + [...] [address] | | | | | | [place] [address] | | | | | | [phone] | | | | | | | [...] Performed At | + + + | [facility] Diagnostic Imaging Department | [place] | | [address] [place] [address], [facility] | [facility] | | 09/29/2011, LUMBAR FACET | [...] Transcribed Date/Time: | | | 09/30/2011 07:23 Glassie: <Electronically Signed | | | by Hakan Cherry MD> 10/01/11 0936 | | + + + + + | Procedure Note | + + | Hardy Wyatt Conversion - 03/23/2013 5:52 PM [facility] | | Diagnostic Imaging Department | | [address] [facility] | | | | | | | [...] | Transcribed Date/Time: 09/30/2011 07:23 | | Glassie: | | <Electronically Signed by Hakan Cherry [...]
--- OUTSIDE RECORDS SUMMARY | ~2019-10-19 | XMS | Encounter Summary ---
Demographics + + + | Address | [address] | | | [place] [address] | + + + | Home Phone [...] [facility] | | | and [place] | + + + | Organization | [facility] | | | and [place] | + + + | Address | Unknown | + + + | Phone | Unavailable | + + + Support + + + + + | Name | Relationship | Address | Phone | + + + + + | Poncho Oquendo | ECON | [address] | | | | | [place] | | | | | [address] | | + + + + + | Marta Upton | ECON | [place] | | | | | [address] | | + + + + + Care Team Providers + +------+ + | Care Engine Mechanic Name | Role | Phone | [...] | | Carcinoma | Reinaldo, | [address] | | | | | of gall | Epifanio Soler, | Arcadio Ervin, | | | | | bladder | MD [address] | [place] [address] | | | | | (HCC) | RICARDA LINDQUIST | Phone: | | | | | Procedures | [address] | [phone] | | | | | CT Chest | OBED, | Fax: | | | | | Abdomen | [place] [address] | [phone] | | | | | Pelvis w | Phone: | | | | | | Contrast | [phone] | | | | | | | Fax: | | | | | | | [phone] | | +--------+--------+ + + + + [...] | | Carcinoma | Reinaldo, | [address] | | | | | of gall | pEifanio Soler, | [place], | | | | | bladder | MD [address] | [place] [address] | | | | | (HCC) | RICARDA LINDQUIST | Phone: | | | | | Procedures | [address] | [phone] | | | | | CT Chest | OBED, | Fax: | | | | | Abdomen | [place] [address] | [phone] | | | | | Pelvis w | Phone: | | | | | | Contrast | [phone] | | | | | | | Fax: | | | | | | | [phone] | | +--------+--------+ + + + + Encounter Details +--------+ + + + + | Date | Type | Department | Care Team | Description | +--------+ + + + + | 12/17/ | Hospital | [facility] | Reinaldo, | Carcinoma of gall | | 2015 | Encounter | MED CTR CT [address] | Epifanio Soler MD [address] | bladder (HCC) | | | | [address] [place], | ST RICARDA LINDQUIST [facility] | | | | | [place] [address] | [address] | | | | | [phone] | [address] | | | | | | | [...] [address] | | | | | | [place] [address] | | | | | | [phone] | | | | | | | [...] intravenous administration of 100 mL | | [id number] contrast. Oral contrast was administered. Multiplanar reformatted [...]
--- OUTSIDE RECORDS SUMMARY | ~2019-10-19 | XMS | Encounter Summary ---
Demographics + + + | Address | [address] | | | [place] [address] | + + + | Home Phone [...] Team Providers + +------+ + | Care Bpm Analyst Name | Role | Phone | [...] + + | 06/06/ | Hospital | [facility] [address] | Miguel Seymour, | | | 2015 - | Encounter | [address] | [address] [facility] | | | | | [place], [place] | [address] | | | 06/09/ | | [address] | [place], [place] | | | 2014 | | [phone] | [address] | | | | | | [phone] | | | | | | | [...] DISCHARGE SUMMARY Author: Roger Guadalupe MD PGY1 SENIOR BUSINESS ARCHITECT Attending Physician: Dr. Henderson Admission Date: 06/06/2014 [...] these places to get your medications. [facility] - enoxaparin 40 mg/0.4 mL Syrg [address] [facility] [address] [facility] [place] [address] Hours: 8AM-9PM Mon-Fri; 9-5:30PM Sat-Sun You may [...] contact your provider, please call the [facility] clinic at [phone] during daytime hours. During evening or weekend hours, please call the [facility] paging selenium plant operator at [phone] and ask for the Corporate Administrative Assistant Oncology staff on-call. Reasons to call the [...] stable Discharging Physician: Roger Guadalupe MD PGY1 SENIOR BUSINESS ARCHITECT Service Pager: [phone] Attending Physician: Dr. Henderson I saw and [...] assessment and plan. Roger Guadalupe MD PGY1 SENIOR BUSINESS ARCHITECT Service Pager: [phone] I saw and evaluated the patient. I [...] Primary service notified. SASHA DALY MD [facility] [address] [facility], 4th Floor Mail Code: CH4P [place], [place] [address] Sasha Antony MD - 06/08/2014 [...] and recommendations with primary care team provider museum exhibit technician/oncology. SASHA DALY MD BILLING INFORMATION [facility] DEPARTMENT: [id number] Place of Service:- Inpatient Date of Service: 06/08/2014 CSN: [id number] Suggested Modifier: None Suggested CPT: 89226 - Daily mgmt epidural/subarachnoid drug administration Prolonged [...] assessment and plan. Roger Guadalupe MD PGY1 SENIOR BUSINESS ARCHITECT Service Pager: [phone] I saw and evaluated the patient. I [...] note in EPIC). SASHA DALY MD [facility] [address] [facility], 4th Floor Mail Code: CH4P [place], [place] [address] Sasha Antony MD - 06/07/2014 7:39 AM [...] team provider . SASHA DALY MD [facility] [address] [facility], 4th Floor Mail Code: CH4P [place], [place] [address] BILLING INFORMATION [facility] DEPARTMENT: [id number] Place of Service:- Inpatient Date of Service: 06/07/2014 CSN: [id number] Suggested Modifier: GC - Resident Involved Suggested CPT: 17120 - Daily mgmt epidural/subarachnoid drug administration Prolonged [...] Service: 06/06/2014 Attending Surgeon: Miguel Seymour MD Director Of Officiating(s): Poncho Arriola MD. Anesthesia: General endotracheal anesthesia [...] for this encounter. Miguel Seymour MD KD/MODL /[id number] [facility] DEPARTMENT: [id number] MEDICAL ASST ONC [facility] Place of Service:11658 - Date of Service: 06/07/2014 CSN: [id number] Suggested Modifier: None Suggested CPT: None Suggested Procedure CPT: To Acquisitions Editor Suggested Diagnosis: Ovarian ca egeestMiguel MD - [...] patient was positioned appropriately. The following steam brush operator s were present during the team pause: Surgical team, anesthesia team, operator technician, [facility] nurse. Preoperative Diagnosis: 1) Left adnexal mass-frozen [...] for this encounter. MIGUEL SEYMOUR MD [facility] [address] [place] [address] documented in this encounter Consult Notes Laura [...] Significant medications resumed. Insurance Status: [employer] w/[employer] as secondary. Fills at [facility] in [place], [place]. Source of Medication Information: Patient and Pharmacy Reliability: Reliable All questions concerning medications, including OTC and herbal products, were addressed. For questions regarding this information please contact pharmacy, pager [phone] signed by Lauar Vazquez PharmD at 06/07/2014 11:42 AM PDTdocumented [...] Report Primary focus of stay: 06/06 ex-lap, JKAE, Boby Salpingoophorectomy, L pelvic & paraortic lym [...] Kpad. Psych/social issues: pleasant, at bedside. From [place]. Last patient visit (i.e. Falls/Activity/Comfort/Environment/Toileting/Skin): ambulates with [...] and agreeable to perform 2x each day. [facility] BASIC MOBILITY How much difficulty does the [...] the skills of a therapist. Interpretation of [facility] Short Form - Basic Mobility: CMS Modifier [...] Other Secondary Emergency Contact: Marta [place] "Elsy" iPierian Relation: Mother Past Medical History: Abdominal or pelvic swelling, mass or lump, unspecified site [699.30] , EXPLORATORY LAPAROTOMY MEDICAL ASST TOTAL ABDOMINAL HYSTERECTOMY Lives With: spouse;child(sonal), dependent Living Arrangement: house Functional Level Prior to Admission: 0-->independent Transportation Available: Per private vehicle driven by Equipment Currently used at Home/DME Provider: none Home Health/Infusion Agency: n/a Insurance/Funding: [place]; [employer] [facility] Assessment: Per chart review and discussion with patient, her and team, no discharg e planning assistance from RN CM anticipated at this time. [facility] pt is medically ready for discharge, he will assist patient with ADLs until she retur ns to baseline. Will continue to follow through discharge. Please see other disciplines' progress notes for their discharge recommendations. Please page human services case manager if any CM arranged service needs arise. Anticipated Discharge Needs: Anticipated Discharge Disposition: home Assessment done by: Latoya TAPIA, RN 14A Mechanical Engineering Lecturer Pager: [phone] lan of [place] - Aneesh [place], MICHAEL [...] extremites Strength: 5/5 bilateral upper extremities, good card scraper strength both hands Edema: None Skin Integrity: [...] hand hold assist with contact guard assist. [facility] daily activity assessment [facility] DAILY ACTIVITY - How much help from another person does the patient currently need f or: Lower body dressing 3 Bathing 3 Toileting 4 Upper body dressing 4 Personal grooming 4 Eating meals 4 [facility] Daily Activity Total Score 22 1 - Unable to do/total assistance = Total/Dependent Assist 2 - A lot = Maximum/Moderate Assistance 3 - A little = Minimal/Contact Guard Assist/Supervision 4 None = Modified independent/Independent Interpretation of [facility] Short Form Daily Activity: CMS Modifier (G-Code) [...] precautions. Education on use of long handled rv body mechanic and sock aide. Education on how to [...] Procedure Performed: Procedure(s) with comments: DIAGNOSTIC LAPAROSCOPY (MEDICAL ASST ONC) - EXPLORATORY LAPAROTOMY; TOTAL ABDOMINAL HYSTERECTOMY; [...] pain medication information: Epidural Functional Epidural: Yes BABY ATTENDANT: N/A Respiratory: RR: 11, O2 Sat: 99 %, O2 Delivery: None (room air) Breath Sounds: WDL KARI: LLL: RUL: RLL: MERNA No Comment: n/a Cardiac: BP: 89/47 mmHg HR: 65 GI: Nausea/Vomiting Status: No Signs/Symptoms: Interventions: Assessment: Comments: tolerating po, denies nausea : Last void: chery Contact Name: ArjunSYLVESTER Contact Number: [phone] Family contacted: Yes Comment:Poncho at bedside in [...] | Abdominal or | | | LAPAROSCOPY (MEDICAL ASST | ve | 7:27 AM | pelvic [...] + +--------+ + + + | NON MEDICAL ASST CYTOLOGY | Routin | 06/06/2014 | | [...] + + + | [facility] | [address] | [place] [address] | | | SERVICES, SAM | PARK [...] | + + + + + | [facility] | [address] | [place] [address] | | | SERVICES, CORE | NEAL [...] | | | LABORATORY | | | [place] | | | SERVICES, | | | [...] the MDRD equation recommended by the | [facility] | | National Kidney Disease Education [...] + + + | [facility] | [address] | [place] [address] | | | SERVICES, CORE | PARK [...] [facility] | [address] | [place] [address] | | | SAM ALONSO | NEAL [...] LABORATORY | [address] | [place] [address] | | | SERVICES, CORE | PARK [...] | | | LABORATORY | | | [place] | | | SERVICES, | | | [...] | + + + + + | [facility] | [address] | [place] [address] | | | SERVICES, CORE | [address] | | | + + + + + OPERATION RECORD (06/07/2014 8:30 AM PDT) + + | Transcriptions | + + | Miguel Seymour MD - 06/06/2014 12:48 PM PDT Date of Service: 06/06/2014 | | Attending Surgeon: Miguel Seymour MD Director Of Officiating(s): | | Poncho Arriola MD. Anesthesia: General [...] 06/06/2014 11:52:24DT: 06/06/2014 12:48:01Job #: | | [id number] DEPARTMENT: [id number] MEDICAL ASST ONC KPlace of Service: - | | IPDate of Service: 06/07/2014 : [id number] | | Modifier: NoneSuggested CPT: NoneSuggested Procedure [...] + + + | [facility] | [address] | [place] [address] | | | SERVICES, SAM | NEAL [...] + + + | [facility] | [address] | [place] [id number] | | | SERVICES, CORE | PARK [...] | + + + + + | [facility] | [address] | [place] [address] | | | SERVICES, CORE | PARK [...] [facility] | [address] | [place] [address] | | | SERVICES, CORE | PARK [...] | | | LABORATORY | | | [place] | | | SERVICES, | | | [...] | + + + + + | [facility] | [address] | [place] [address] | | | SERVICES, CORE | [address] | | | + + + + + NON MEDICAL ASST CYTOLOGY (06/06/2014) + + + + + + | Component | Value | Ref Range | Performed | Pathologist | | | | | At | Signature | + + + + + + | NON-MEDICAL ASST | SOURCE OF SPECIMEN:A | | [facility] [...] San | | | | | | CT(ASC)Intern Brand | | | | | | Electronically Signed | | | | | | 06/07/2014 | | | | | | 9:43AMRendering | | | | | | Diagnostician: Michael | | | | | | aSrah | | | | | | Dottiei [...] [facility] | [address] | [place] [address] | | | PATHOLOGY | [address] [...] | | | | | | corresponding [id number] | | | | | | B: [...] bed | | | | | | ([id number], slides [id number]). | | | | | [...] necessary | | | | | | [facility] | | | | | | [...] | | | | | | s/pchemoXRT ([id number], | | | | | | [id number]); now with | | | | | [...] | | | | | | | Medical Screener | | | | | | sections [...] identified. | | | | | | Medical Screener | | | | | | sections [...] residueB3-6, | | | | | | signs sales representative sections | | | | | | of #1 external | | | | | | excrescenceB7-8, #2 | | | | | | external | | | | | | excrescenceB9-10, entire | | | | | | #3 external | | | | | | ahersjqyisjU27, | | | | | | signs sales representative sections | | | | | | of del rio-brown | | | | | | excrescences from inner | | | | | | cyst oocemngeiqV53-77, | | | | | | additional sections of | | | | | | ybtmiO07, signs sales representative | | | | | [...] endomyometriumD5, | | | | | | signs sales representative sections | | | | | | of right ovaryD6-9, | | | | | | signs sales representative sections | | | | | | of external ovarian | | | | | | oapwhfW15-94, | | | | | | signs sales representative sections | | | | [...] [facility] | [address] | [place] [address] | | | PATHOLOGY | [address] [...]
--- OUTSIDE RECORDS SUMMARY | ~2019-10-19 | XMS | Encounter Summary ---
Demographics + + + | Address | [address] | | | [place] [address] | + + + | Home Phone [...] Team Providers + +------+ + | Care Facilities And Grounds Director Name | Role | Phone | [...] 2012 | | Center at [facility] [address] | [address] [facility] | | | | | [facility] | [facility] | | | | | for Health and | [place], [place] | | | | | [facility] [place] [address] | [address] | | | | | [place], [place] | [phone] | | | | | [address] | | | | | | [phone] | | | +--------+ + + + [...]
--- OUTSIDE RECORDS SUMMARY | ~2019-10-19 | XMS | Encounter Summary ---
Demographics + + + | Address | [address] | | | [place] [address] | + + + | Home Phone [...] + | Poncho Oquendo | ECON | [address] | | | | | [place] | | | | | [address] | | + + + + + | Marta Upton | ECON | [place] | | | | | [address] | | + + + + + Care Team Providers + +------+ + | Care Survey Researcher Name | Role | Phone | [...] | | | | | Procedures | [address] | [place] [address] | | | | | [place] OFFICE | Phone: | Phone: | | | | | OUTPATIENT | [phone] | [phone] | | | | | VISIT 25 | Fax: | Fax: | | | | | MINUTES | [phone] | [phone] | +--------+--------+ + + + + Encounter Details +--------+ + + + + | Date | Type | Department | Care Team | Description | +--------+ + + + + | 08/06/ | Hospital | [facility] | Vladimir Robles, | Gallbladder cancer, | | 2017 | Encounter | [facility] | MD Alanna BURRELL | carcinoma (HCC) | | | | [facility] [address] | [place]OSIAS ERVIN, | (Primary Dx) | | | | [address] | [place] [address] | | | | | [place] [address] | [phone] | | | | | [phone] | | | +--------+ + + + [...] as of this encounter Progress Notes Vladimir Rolbes MD - 08/06/2016 9:18 AM PDTFormatting of this note might be different f rom the original. Hematology-Oncology Progress Note [facility] Pt. Name/Age/: Aura Upton 55 y.o. 1960 CSN: [id number] Date of service: 08/06/2016 Provider: Vladimir Robles [...] scheduled. 1. Day 8, cycle #6 of gemcitabine/cis-[place]. 2. Neupogen, [facility] in [place]. 3. Follow-up scheduled with Dr. Najera on [...] Last chemotherapy was a week ago at [facility]. My chart: active. Medications: Current Outpatient Prescriptions [...] this chart may have been created with [employer] voice recognition software. Occasi onal wrong-word or [...] TAI | | | | | | [place] [address] | | | | | | [phone] | | | | | | | [...]
--- OUTSIDE RECORDS SUMMARY | ~2019-10-19 | XMS | Encounter Summary ---
Demographics + + + | Address | [address] | | | [place] [address] | + + + | Home Phone [...] Team Providers + +------+ + | Care Battery Checker Name | Role | Phone | [...] & | Diagnoses | Non-[facility] | [facility] Manager Onc | | | | Gynecology | Complex | Epic Dept | [facility] [address] | | | | | Cystic Mass, | | [address] | | | | | elevated | | Catherine | | | | | CA125 per | | Alexis, 7th | | | | | appt notes | | floor | | | | | | | [place], [place] | | | | | | | [address] | | | | | | | Phone: | | | | | | | [phone] | | | | | | | Fax: | | | | | | | [phone] | +--------+--------+ + + + + Encounter Details +--------+---------+ + + + | Date | Type | Department | Care Team | Description | +--------+---------+ + + + | 06/18/ | Office | [facility] | Miguel Seymour, | 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 | [facility] | [address] | (HCC) (Primary Dx) | | | | [address] | [facility] | | | | | [address] | [place], [place] | | | | | Alexis, [facility] floor | [address] | | | | | [place], [place] | [phone] | | | | | [address] | | | | | | [phone] | | | +--------+---------+ + + + [...] RN - 06/18/2014 10:51 AM PDTPlease call [facility] scheduling to set up a post op follow up in 5-6 weeks for a pelvic exam. [phone], ok to coordinat e with an apt with or Romy (ok if it is longer than 6 weeks) if you like. documented in this encounter Progress Notes Pavithra Aviles MD - 06/18/2014 10:34 AM PDTFormatting of this note might be different fro m the original. [facility] Aura Upton 06/18/2014 PCP: SANDY [...] Narrative Pt has SO. Lives in [facility]. 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 Likes to camp, entertain. REVIEW OF SYSTEMS: [...] clean, dry, and intact - well healed. [place] removed. Steristrips placed. STUDIES REVIEWED Final Pathologic Diagnosis: 05/21/2014 Endometrium, biopsies: - Polypoid endocervical transformation zone mucosa - Fragments of endometrial stroma - Nega tive for hyperplasia, dysplasia or malignancy CA-125 on 05/21/2014: 225 Pathology (06/06/14): A: Pelvic washings, sent to Cytology: - Please see corresponding [id number] B: Left ovary and fallopian tube, salpingo-oophorectomy: [...] excised lymph nodes from the gallbladder bed ([id number], s cassandraes E3-4). Additionally, immunohistochemical staining on the left [...] Aviles MD Obstetrics and Gynecology, PGY1 Pager #[phone] I saw and evaluated the patient. I [...]
--- OUTSIDE RECORDS SUMMARY | ~2019-10-19 | XMS | Encounter Summary ---
Demographics + + + | Address | [address] | | | [place] [address] | + + + | Home Phone [...] + | Poncho Oquendo | ECON | [address] | | | | | [place] | | | | | [address] | | + + + + + | Marta Upton | ECON | [place] | | | | | [address] | | + + + + + Care Team Providers + +------+ + | Care Emergency Services Professional Name | Role | Phone [...] [facility] | Epifanio Soler MD [address] | | | | | [facility]IN[facility] [address] | [facility] | | | | | [address] | [address], [place] | | | | | [place] [address] | [address] | | | | | [phone] | | | +--------+ + + + [...] [address] | | | | | | [place] [address] | | | | | | [phone] | | | | | | | | +--------+---------+ + + + documented as of this encounter Visit Diagnoses + + | Diagnosis | + + | Gallbladder cancer, 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
--- OUTSIDE RECORDS SUMMARY | ~2019-10-19 | XMS | Encounter Summary ---
Demographics + + + | Address | [address] | | | [place] [address] | + + + | Home Phone [...] Providers + +------+ + | Care Chemical Detection Expert Name | Role | Phone | [...] + + | 04/28/ | Hospital | [facility] [address] | Cornelia Stanton, | | | 2012 - | Encounter | [facility] Mailcode: | [address] | | | | | [address] | [address] | | | 05/04/ | | [place], | [place], [place] | | | 2012 | | [place] [address] | [address] | | | | | [phone] | [phone] | | | | | | | [...] acute cholecystitis. Her pathology was reviewed at [facility]. She underwent a CT scan, which [...] working on arranging an appointm ent with [facility] Oncology for treatment planning. FINAL PATHOLOGY: [...] diarrhea.During normal business hours please call [facility]est[facility] Ryder dangelo .For 'after hours' URGENT problems please call the [facility] asphalt screed operator at and ask for the "Blue [...] None Your Follow-Up Plan Follow up with [facility] HEMATOLOGY ONCOL[facility]Y [facility]. (Please expect a call from the Oncology clini c in the next several days to schedule an appointment with either Dr. Grey or Dr. Ledesma ) Contact information: [address] [facility] [address] Future Appointments Date & Time Provider Department Dept Phone Center 05/17/2012 11:30 AM CORNELIA STANTON MD [facility] [phone] [facility] Discharging Physician: MARCO ANTONIO BEATTY NP Attending Physician: MD Marco Antonio Mauricio RN, MSN, SERVICE LOSS CONTROL CONSULTANT [facility] Blue Surgery Pager# [phone] 9:37 AM 05/04/2012 documented in this enc [...] 0659 05/04/12 07 - 05/05/12 0659(Discharged) Shift 6462-3540 8118-3691 4442-8914 Daily Total 6628-1489 2802-2314 6784-6466 Daily Total I N T A K E P.O. 925 422 911 6786 500 500 I.V. 5 10 15 Shift Total 930 201 079 5651 500 500 O U T P U T Urine 1050 3524 938 3694 400 400 Urine 1050 2216 304 9157 400 400 Other Stool 1 1 Shift Total 1050 2829 943 4460 400 400 NET -120 -1090 205 -1005 [...] Attending Physician: Dr. Romy Beatty RN, MSN, SERVICE LOSS CONTROL CONSULTANT [facility] Blue Surgery Pager# [phone] 12:54 PM 05/04/2012 Current Inpatient Medications Medication [...] Parish Arias MD - 5:51 AM PDT [facility] Department of Surgery Blue Surgery Progress [...] 04/29/12699 - 04/30/1265804/30/12699 - 05/01/12 0659 Shift 5128-3093 4761-9238 7458-0358 Daily Total 2016-4861 1370-2747 4600-1653 Daily Total I N T A K E P.O. 620 101 001 0840 P.O. 620 501 117 6035 I.V. 1977.33 977.5 982.5 3937.33 0 0 [...] O U T P U T Urine 365 687 6982 2004 I/O Urinary Drain Output (Urinary Cath Placement López) 360 569 9802 2004 Shift Total 654 996 2153 2004 NET 2415.83 837.5 307.5 3560.83 0 [...] tomorrow Parish Blackburn MD Surgery, R1 Pager: [phone] ilvia Del Toro NP - 05/01/2012 2:19 PM PDTPain fairly well controlled on oral medications. No longer nauseated, tolerating 10 mg oxycodone Epidural catheter discontinued, tip intact. APS will sign off, please call us back if there are any pain related concerns for us to add ress. Silvia Del Toro NP Adult Pain Service Pager [phone] Team Pager [phone] Silvia Mckeon NP - 05/01/2012 8:56 AM [...] and summary of old medical records (source: [employer]), as summarized in the body of the note. SILVIA DEL TORO NP BILLING INFORMATION [facility] DEPARTMENT: [id number] Place of Service:- Inpatient Date of Service: 05/01/2012 CSN: [id number] Suggested Modifier: None Suggested CPT: 60144 - Daily mgmt epidural/subarachnoid drug administration Prolonged service: n/a Parish Arias MD - 05/01/2012 5:44 AM PDT [facility] Department of Surgery Blue Surgery Progress [...] 04/30/12 0659 04/30/12699 - 05/01/12 0659 Shift 5254-0955 1164-1737 2752-6728 Daily Total 0460-7648 2605-3466 8616-1141 Daily Total I N T A K E P.O. [address] 716 049 7956 P.O. 620 933 412 7049 I.V. 1977.33 977.5 982.5 3937.33 0 0 [...] O U T P U T Urine 609 175 6057 2004 I/O Urinary Drain Output (Urinary Cath Placement López) 350 797 9492 2004 Shift Total 125 588 4363 2005 NET 2415.83 837.5 307.5 3560.83 0 [...] course Parish Blackburn MD Surgery, R1 Pager: [phone] ee, MD Parish - 11:59 AM PDT [facility] Department of Surgery Blue Surgery Progress [...] Date 04/29/12699 - 04/30/1265804/30/12699 - 05/01/1259 Shift 2255-3460 7648-1087 3198-9107 Daily Total 3876-9147 1032-8099 8078-3870 Daily Total I N T A K E P.O. [address] 479 610 1493 P.O. 620 504 412 4355 I.V. 1977.33 977.5 982.5 3937.33 0 0 [...] O U T P U T Urine 472 394 6902 2004 I/O Urinary Drain Output (Urinary Cath Placement López) 274 462 5854 2004 Shift Total 122 542 6358 2005 NET 2415.83 837.5 307.5 3560.83 0 [...] course Parish Blackburn MD Surgery, R1 Pager: [phone] Sasha Antony MD - 04/30/2012 7:03 AM [...] 20 mg Intravenous Q12H 20 mg (04/29/12 997) senna-docusate (aka SENOKOT S) 8.6-50 mg 1 [...] primary service. JOSE HOOKS MD BILLING INFORMATION [facility] DEPARTMENT: [id number] Place of Service:- Inpatient Date of Service: 04/30/2012 CSN: [id number] Suggested Modifier: GC - Resident Involved Suggested CPT: 55524 - Daily mgmt epidural/subarachnoid drug administration Prolonged [...] the floor later today. 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 [employer] Hypotension Fluid bolus as needed to [...] for intervention Dispo TRANSFER TO [facility] ONLY Sasha Antony MD - 04/29/2012 [...] making: N/a JOSE HOOKS MD BILLING INFORMATION [facility] DEPARTMENT: [id number] Place of Service:- Inpatient Date of Service: 04/29/2012 CSN: [id number] Suggested Modifier: GC - Resident Involved Suggested CPT: 18508 - Daily mgmt epidural/subarachnoid drug administration Prolonged [...] MD Department of Obstetrics & Gynecology, PGY1 [facility] Pager [phone] documented in thi s encounter H&P Notes [...] Date: 04/28/2012 Attending Surgeon: Cornelia Stanton M.D. Planetarium Technician(s): Ruba Lam MD Preoperative Diagnosis(es): Gallbladder cancer. [...] acute cholecystitis. Her pathology was reviewed at [facility]. She underwent a CT scan, which [...] in case we needed to perform a [place] maneuver. We then finished the dissection identifying [...] RSI wa s completed. Cornelia Stanton M.D. [facility] ([facility]) Professor and Vice-Drafter Topographical of Surgery The Shahriar Nava Chair for Pancreatic Disease Research Pancreatic/ HepatoBiliary and Foregut Working Groups Mail Code L223A [address] [place], [place]. [address] email: [email or web address] Cornelia Stanton M.D. Professor and Vice-Drafter Topographical of Surgery The Shahriar Menezes for Pancreatic Disease Research [facility] ([facility]) Division of Gastrointestinal and General Surgery JS / HS [id number] / [id number] / [id number] / hepCornelia snider MD - 04/28/2012 2:25 [...] fossa with negative margins. RUBA BERTRAND MD Tow[place], R5 I was present for the critical portions of this procedure and final inspection for RSI wa s completed. Cornelia Stanton M.D. [facility] ([facility]) Professor and Vice-Drafter Topographical of Surgery The Shahriar Nava Chair for Pancreatic Disease Research Pancreatic/ HepatoBiliary and Foregut Working Groups Mail Code L223A [address] [place], [place]. [address] email: [email or web address] documented in this en counter Consult Notes [...] History Narrative Pt has SO. Lives in [facility]. 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 Likes to [employer], [employer]. FAMILY HISTORY: Family History Problem Relation Diabetes [...] the a ttending physician. CRYSTAL PEREZ PA-C [address] [place] [address] documented in thi s encounter Miscellaneous Notes [...] and medicatio ns. Pt discharged home, to [facility], with S/O. Discharge Nurse: LALA HERNANDEZ [...] and plan for follow up. Collaborate w [facility] surgical team on answering all questions. Provide [...] and plan for follow up. Collaborate w [facility] surgical team on answering all questions. Provide [...] and plan for follow up. Collaborate w [facility] surgical team on answering all questions. Provide [...] see well in the dark. Please have menu planner see patient first thing in AM [...] told she is going to discharge tomorrow. Elys nguyen felt like the process explained to [...] well in the dark . Please have menu planner see patient first thing in AM [...] patient is comfortable. Lala Mahajan DPT Pager [phone] lan of Placido - Rukhsana Umaña OT [...] Living Environment: Pt lives with spouse in [place] in 1 level house, 0 steps to [...] personal items within reach. 4. Assess skin L0ojxgs and PRN. Educate on prevention of skin [...] protein (1.0-1.5gm/kgAdjB W) Dora Tse RD, LD #[id number] signed by Dora Tse RD at 013 [...] Provider: none Home Health/Infusion Agency: N/A Insurance/Funding: @[employer]@, [facility], [facility] Assessment: 51 yr old female with hx Gallbladder Ca, admitted for 04/28 liver wedge resectio n. Pt now on 13K, epidural off, diet advancing to full liquid, lópez out, bowel fx starting to return. Pt from [place], appears to have supportive family. Case mgt to follow for dc planning including possible Lovinox. Plan for dc Tue, , this week. [place] [phone] Anticipated Discharge Needs: Anticipated Discharge Disposition: home [...] with assist TID. Lala Mahajan DPT Pager [phone] lan of Care - Tevin Adame RN [...] wedge resection IV Access: right Forearm IVF: [id number]@ 75 Drains/Tubes: Hydromorphone Epidural 13mL cont. 3mL [...] wedge resection IV Access: right Forarm IVF: [id number]@ 75 Drains/Tubes: Hydromorphone Epidural 12 cont. 3Q [...] mobility without assistive device; works at a [employer] Patient / Family Goal: Get well, return to home. 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 Vital signs: [...] Note: later lan of Care - Sangita Maay RN - 04/29/2012 11:49 PM PDTProblem: General [...] Additional pain medication information: Functional Epidural: Yes CASTING FINISHER: N/A Respiratory: RR: 12 , O2 Sat: 100 %, O2 Delivery: Simple mask Breath Sounds: WDL KARI: LLL: RUL: RLL: MERNA No Comment: Cardiac: BP: 120/76 mmHg HR: 86 GI: Nausea/Vomiting Status: No Signs/Symptoms: Interventions: Assessment: Comments: : Last void: cath Contact Name: Juan Abarca (spouse) Contact Number: [phone] Family contacted: Yes Comment: Belongings: documented in [...] [facility] | [address] | [place] [address] | | | SERVICES, CORE | PARK [...] + | [facility] | [address] | [place] [address] | | | SERVICES, CORE | NEAL [...] [facility] | [address] | [place] [address] | | | SERVICES, CORE | PARK [...] [facility] | [address] | [place] [address] | | | SERVICES, CORE | PARK [...] + | [facility] | [address] | [place] [address] | | | SERVICES, CORE | [address] | | | + + + + + MAGNESIUM, PLASMA (05/03/2012 6:00 AM PDT) + +-------+ + + + | Component | Value | Ref Range | Performed | Pathologist | | | | | At | Signature | + +-------+ + + + | MAGNESIUM,P | 1.8 | 1.8 - 2.5 mg/dL | [facility] | | | LASMA | | [...] | + + + + + | [facility] | [address] | [place] [address] | | | SERVICES, CORE | PARK [...] [facility] | [address] | [place] [address] | | | GAVIN, CORE | PARK [...] [facility] | [address] | [place] [address] | | | SERVICES, CORE | NEAL [...] + | [facility] | [address] | [place] [address] | | | SERVICES, CORE | NEAL [...] [facility] | [address] | [place], [place] | | | DG POINT OF CARE | [address] | [address] | | | TESTS | | | [...] | + + + + + | [facility] | [address] | [place] [address] | | | SERVICES, SAM | NEAL [...] NAELAM | [address] | [place], [place] | | | DG POINT OF CARE | [facility] | [address] | | | TESTS | | | [...] | + + + + + | [facility] [employer] | [address] | [place] [address] | | | SERVICES, CORE | NEAL [...] [facility] | [address] | [place] [address] | | | SERVICES, CORE | PARK [...] | + + + + + | [facility] | [address] | [place] [address] | | | SERVICES, CORE | NEAL [...] MAR[facility] | [address] | [place], [place] | | | JOHN CONTE OF CARE | [address] | [address] | | | TESTS | | | [...] - KANNAN | [address] | [place], [place] | | | DG [facility] | [facility] | [address] | | | TESTS | | | [...] [facility] | [address] | [place] [address] | | | SERVICES, CORE | PARK [...] + | [facility] | [address] [facility] | [place] [address] | | | SERVICES, CORE | [address] | | | + + + + + MAGNESIUM, PLASMA (04/30/2012 6:42 AM PDT) + +-------+ + + + | Component | Value | Ref Range | Performed | Pathologist | | | | | At | Signature | + +-------+ + + + | MAGNESIUM,P | 1.8 | 1.8 - 2.5 mg/dL | [facility] | | | LASMA | | [...] | + + + + + | [facility] | [address] | [place] [address] | | | SERVICES, CORE | PARK [...] | + + + + + | [facility] | [address] | [place] [address] | | | SERVICES, CORE | [address] | | | + + + + + OPERATION RECORD (04/29/2012 5:13 PM PDT) + + | Transcriptions | + + | Ruba Muhammad MD - 04/28/2012 10:30 PM PDT Date: | | 04/28/2012ttending Surgeon: Cornelia Stanton M.D.Planetarium Technician(s): | | VENKATA Mcclainreoperative Diagnosis(es):Gallbladder | [...] with an incidental finding of | | K8dwhgoulprvr adenocarcinoma at her recent laparoscopic cholecystectomy foracute | | cholecystitis. Her pathology was reviewed at [facility]. She underwent aCT scan, which | [...] for RSI | | was completed.Cornelia Stanton M.D.[facility] ([facility])Professor | | and Vice-Drafter Topographical of SurgeryThe Shahriar Nava Chair for Pancreatic Disease | | ResearchPancreatic/ HepatoBiliary and Foregut Working GroupsMail Code [id number] [facility] | | [place], [place]. [address]Tqlwi Fax (149) | | [phone]: [email or web address] Stanton M.D.Professor and Vice-Drafter Topographical of | | SurgeryThe Shahriar Nava Chair for Pancreatic Disease ResearchVanderbilt Rehabilitation Hospital | | [place] ([facility])Division of Gastrointestinal and General SurgeryJS / [id number] / | | [id number] / [id number] / T: 04/28/2012 | |with electrocautery. Biopsy [...] case we needed to perform a | |[place] maneuver. We then finished the dissection identifying [...] | | | |Cornelia Stanton M.D. | |[facility] ([facility]) | |Professor and Vice-Drafter Topographical of Surgery | |The Shahriar Nava Chair for Pancreatic Disease Research | |Pancreatic/ HepatoBiliary and Foregut Working Groups | |Mail Code L223A | |[address] [place] [address] | |[place], [place]. [address] | | | | | |email: [email or web address] | | | | | |Cornelia Stanton M.D. | |Professor and Vice-Drafter Topographical of Surgery | |The Shahriar Nava Chair for Pancreatic Disease Research | |[facility] ([facility]) | |Division of Gastrointestinal and General Surgery | | | |JS / HS | |[id number] / [id number] / [id number] / | | | | | + [...] + | [facility] | [address] | [place] [address] | | | SERVICES, CORE | NEAL [...] [facility] | [address] | [place] [address] | | | SERVICES, CORE | NEAL [...] [facility] | [address] | [place] [address] | | | SERVICES, CORE | PARK [...] | + + + + + | [facility] | [address] | [place] [address] | | | SERVICES, CORE | PARK [...] in | | | | | | [facility]. No | | | | [...] + | [facility] | [address] | [place] [address] | | | SERVICES, CORE | PARK [...] + | [facility] | [address] | [place] [address] | | | SERVICES, CORE | NEAL [...] [facility] | [address] | [place] [address] | | | SERVICES, CORE | PARK [...] | + + + + + | [facility] | [address] | [place] [address] | | | SERVICES, CORE | PARK [...] | + + + + + | [facility] | [address] | [place] [address] | | | SERVICES, CORE | NEAL [...] BRUNNER | [address] | [place], [place] | | | JOHN CONTE OF PLACIDO | [facility] | [address] | | | TESTS | | | [...] KANNAN | [address] | [place], [place] | | | JOHN CONTE OF CARE | [facility] | [address] | | | TESTS | | | [...] MARQU[facility] | [address] | [place], [place] | | | JOHN CONTE OF CARE | [facility] | [address] | | | TESTS | | | [...] BRUNNER | [address] | [place], [place] | | | DG POINT OF CARE | [address] | [address] | | | TESTS | | | [...] MARQU[facility] | [address] | [place], [place] | | | DG POINT OF CARE | [address] | [address] | | | TESTS | | | [...] MAR[facility] | [address] | [place], [place] | | | JOHN CONTE OF CARE | [address] | [address] | | | TESTS | | | [...] BRUNNER | [address] | [place], [place] | | | DG POINT OF CARE | [address] | [address] | | | TESTS | | | [...] MARQUAM | [address] | [place], [place] | | | DG [facility] | [address] | [address] | | | TESTS | | | [...] bed. | | | | | | Coil Placer | | | | | | sections [...] vein. | | | | | | Coil Placer | | | | | | sections [...] | | | | | | [id number], novelties sales representative | | | | | [...] [facility] | [address] | [place] [address] | | | PATHOLOGY | [address] [...]
--- OUTSIDE RECORDS SUMMARY | ~2019-10-19 | XMS | Encounter Summary ---
Demographics + + + | Address | [address] | | | [place] [address] | + + + | Home Phone [...] Author | [facility] | | | and [place] | + + + | Organization | [facility] | | | and [place] | + + + | Address | Unknown | + + + | Phone | Unavailable | + + + Support + + + + + | Name | Relationship | Address | Phone | + + + + + | Poncho Oquendo | ECON | [address] | | | | | [place] | | | | | [address] | | + + + + + | Marta Upton | ECON | [address] | | | | | [address] | | + + + + + Care Team Providers + +------+ + | Care Geological Engineering Teacher Name | Role | Phone [...] W | | | | | | [place], | | | | | | [place] [address] | | | | | | [phone] | | | +--------+ + + + [...] | | | | [facility] [address] | | | | | | [phone] | | | | | | | | +--------+---------+ + + + documented as of this encounter Visit Diagnoses Not on filedocumented in this encounter"
--- OUTSIDE RECORDS SUMMARY | ~2019-10-19 | XMS | Encounter Summary ---
Demographics + + + | Address | [address] | | | [place] [address] | + + + | Home Phone [...] Providers + +------+ + | Care Clinical Laboratory Director Name | Role | Phone | + +------+ + | Tomasa Wagner | PCP | | + +------+ + Encounter Details +--------+ + + + + | Date | Type | Department | Care Team | Description | +--------+ + + + + | 08/22/ | Telephone | Digestive Health | Tai Stanton, | | | 2012 | | Center at [facility] [address] | [address] [facility] | | | | | [facility] | [facility] | | | | | for Health and | [place], [place] | | | | | [facility] [place] [address] | [address] | | | | | [place], [place] | [phone] | | | | | [address] | | | | | | [phone] | | | +--------+ + + + [...] Telephone Encounter - Amy Dinh RN - 08/23/2012 6:35 PM PDTRefill reviewed with Dr. Erickson jaime and authorized, arranged for prescription to be sent to patient's pharmacy as lenore ramirez. elephone Encounter - Kay Naqvi - 08/22/2012 1:53 PM PDTPt returned my call. Pt reports using the lidocaine patch once daily. Pt states that her incision area is irritated by her clothes rubbing on it during the day w hile at work. Pt states weekends are better because she can wear looser clothes. Pt reports her pain is 4/10 if she goes without the patch. Feels much better when using the patch. Pt would like to have the patches available when needed. I told pt I would report the above to Amy RN and we will call her back with a plan. Pt agreed. elephone Encount er - Kay Naqvi - 08/22/2012 1:41 PM PDTReturned pt call. Left VM for a return call. Janeth ctronically signed by Kay Naqvi at 08/22/2012 1:41 PM PDTTelephone Encounter - Mihir Kumari - 08/22/2012 8:50 AM Desi Upton calling For a prescription refill to be sent to her pharmacy. Is it alright to leave a detailed message? Yes Medication Requested: lidocaine 5 %(700 mg/patch) Topical Adhesive Patch, Medicated When will you run out? Has 2 left Last filled: 06/30/2012 Pharmacy: Pharmacy Preferences: [facility] [address] [place] [address] documented in this encou nter Plan of Treatment Not on filedocumented as of this encounter Visit Diagnoses Not on filedocumented in this encounter"
--- OUTSIDE RECORDS SUMMARY | ~2019-10-19 | XMS | Encounter Summary ---
Demographics + + + | Address | [address] | | | [place] [address] | + + + | Home Phone [...] | [facility] | | | and [place] | + + + | Organization | [facility] | | | and [place] | + + + | Address | Unknown | + + + | Phone | Unavailable | + + + Support + + + + + | Name | Relationship | Address | Phone | + + + + + | Poncho Oquendo | ECON | [address] | | | | | [place] | | | | | [address] | | + + + + + | Marta Upton | ECON | [place] | | | | | [address] | | + + + + + Care Team Providers + +------+ + | Care Mohs Surgeon Name | Role | Phone | + [...] | | (HCC) | [address] [place] | [place] [address] | | | | | Procedures | [address] | Phone: | | | | | [place] CISPLATIN | OBED, | [phone] | | | | | 10 MG | [place] [address] | Fax: | | | | | INJECTION | Phone: | [phone] | | | | | [place] | [phone] | | | | | | GEMCITABINE | Fax: | | | | | | HCL | [phone] | | | | | | INJECTION, | | | | | | | 200 MG [place] | | | | | | | DIPHENHYDRAM | | | | | | | INE HCL | | | | | | | INJECTIO, 50 | | | | | | | MG [place] | | | | | | | METHYLPREDNI | | | | | | | SOLONE | | | | | | | INJECTION, | | | | | | | 125 MG [place] | | | | | | | FILGASTIM | | | | | | | (ZARXIO) 300 | | | | | | | MCG/0.5ML | | | | | | | SOSJosy PER 1 | | | | | | | MCG [place] | | | | | | | ONDANSETRON | | | | | | | HCL | | | | | | | INJECTION, 1 | | | | | | | MG NC | | | | | | | DEXAMETHASON | | | | | | | E SODIUM | | | | | | | PHOS, 1 MG | | | | | | | NC | | | | | | | FOSAPREPITAN | | | | | | | T INJECTION, | | | | | | | 1 MG [place] | | | | | | | NORMAL | | | | | | | SALINE | | | | | | | SOLUTION | | | | | | | INFUS, 500 | | | | | | | ML [place] | | | | | | | NORMAL | | | | | | | SALINE | | | | | | | SOLUTION | | | | | | | INFUS, 250 | | | | | | | ML [place] | | | | | | | STERILE | | | | | | | WATER/SALINE | | | | | | | , 10 ML [place] | | | | | | | CHEMOTHER, | | | | | | | IV PUSH,EA | | | | | | | ADD DRUG NC | | | | | | | CHEMOTHER, | | | | | | | IV INFUSION, | | | | | | | 1 HR NC | | | | | | | CHEMOTHER, | | | | | | | IV INFUSION, | | | | | | | EA HR NC | | | | | | | CHEMOTHER,NO | | | | | | | N-HORMONE | | | | | | | ANTI-NEOPL, | | | | | | | SUB-Q/IM [place] | | | | | | | [...] + + | 08/06/ | Hospital | [facility] | Vladimir Robles, | Gallbladder cancer, | | 2017 | Encounter | MED CTR CHEMO | MD [address] | carcinoma (HCC) | | | | INFUSION [address] [place], | | | | | [place], | [place] [address] | | | | | [place] [address] | [phone] | | | | | [phone] | | | +--------+ + + + [...] Treatment Plan - Marcelina Johnson RN - 08/06/2016 9:35 AM PDTViewed chart for weight, kenya l signs and lab results. Also viewed chart for completion of medication and allergy review prior to treatment.Marcelina Hassan RN DATE/TIME: 08/06/2016 9:35 documented in this en counter Plan of Treatment +--------+---------+ + + + | Date | Type | Specialty | Care Team | Description | +--------+---------+ + + + | 10/29/ | Office | Urology | Pedro Green, | | | 2019 | Visit | | DO Vaishali [address] | | | | | | [place] [address] | | | | | | [phone] | | | | | | | [...] the | | | | PDT | ([facility]) | results section. | + +--------+ + + + | LACTATE | STAT | 08/06/2016 | Gallbladder | Results for this | | DEHYDROGENASE | | 8:49 AM | cancer, carcinoma | procedure are in the | | | | PDT | ([facility]) | results section. | + +--------+ + + + | CEA | STAT | 08/06/2016 | Gallbladder | Results for this | | | | 8:49 AM | cancer, carcinoma | procedure are in the | | | | PDT | ([facility]) | results section. | + +--------+ + + + | COMPREHENSIVE | STAT | 08/06/2016 | Gallbladder | Results for this | | METABOLIC PANEL | | 8:49 AM | cancer, carcinoma | procedure are in the | | | | PDT | ([facility]) | results section. | + +--------+ + + + documented in this encounter Results Brian Huntley (08/06/2016 8:49 AM PDT) + + + [...] | Bands | | K/uL | [facility] | | | | | | MEDICAL | | | | | | CENTER - | | | | | | LABORATORY | | + + + + + + | Total Cells | 100 | | [facility] | | [...] + | [facility] | [address] [place] [address] | [place] | [phone] | | [facility] | | [address] | | | - LABORATORY | | [...] [place] | | | | | | [address] | | | | + + + + + + + + | Specimen | + + | Blood | + + + + + + + | Performing | Address | City/State/Zipcode | Phone Number | | Organization | | | | + + + + + | [facility] | [address] | [place] [address] | [phone] | + + + + + Lactate [...] + | [facility] | [address] [place] [address] | [place] | [phone] | | [facility] | | [address] | | | - LABORATORY | | [...] | 0.95 | 0.60 - 1.30 | [facility] | [...] mL/min/1.73m2 | [facility] | | | [place] | RATE,ESTIMATED | | MEDICAL | | | | mL/min/1.77n8Yarx than | | CENTER - | | [...] + | [facility] | [address] | [place] | [phone] | | [facility] | | [address] | | | - LABORATORY | | | | + + + + + CBC with Differential (08/06/2016 8:49 AM PDT) + + + + + + | Component | Value | Ref Range | Performed | Pathologist | | | | | At | Signature | + + + + + + | White Blood | 6.1 | 4.0 - 11.0 K/uL | [facility] | | | Cells | | | [facility] | | | | | | MEDICAL | | | | | | CENTER - | | | | | | LABORATORY | | + + + + + + | Red Blood | 2.69 (L) | 3.70 - 5.20 [...] + + | [facility] | [address] | [place] | [phone] | | [facility] | | [address] | | | - LABORATORY | | [...] [address] | [place] | [phone] | | [facility] | | [address] | | | - LABORATORY | | [...] | | | over 1 Hours, ONCE, Tue08/06/16 | | | | | | | [...] | | | | | Intravenous, ONCE, Tue08/06/16 at | | AM PDT | | [...] | | | | | Minutes, ONCE, Tue08/06/16 at | | | | | | | 1000, For 1 dose, Administer | | | | | | | prior to chemotherapy., | | | | | | + +---------+ +---+-------+---+ +---+---+ | | | +---+---+ documented in this encounter"
--- OUTSIDE RECORDS SUMMARY | ~2019-10-19 | XMS | Encounter Summary ---
Demographics + + + | Address | [address] | | | [place] [address] | + + + | Home Phone [...] + | Poncho Oquendo | ECON | [address] | | | | | [place] | | | | | [address] | | + + + + + | Marta Upton | ECON | [place] | | | | | [address] | | + + + + + Care Team Providers + +------+ + | Care Solid Surface Fabricator Name | Role | Phone | [...] + + | 12/09/ | Telephone | [facility] | Reinaldo, | Other | | 2014 | | MED CTR MEDICAL | Epifanio Soler MD 6003 | | | | | ONCOLOGY CLINIC [address] | [facility] | | | | | [address] | [address] [place], [place] | | | | | [place] [address] | [address] | | | | | [phone] | | | +--------+ + + + [...] in scheduling notified. Please call patient at [phone].Electr onically signed by Sonia Renae RN at 12/09/2014 12:35 PM PDTTelephone Encounter - Epifanio Borrero MD - 12/09/2014 10:57 AM PDTOrder placed in EPIC for CT chest/abdomen/ pelvis. Please cancel order for CT abdomen/pelvis. Please notify scheduling, imaging, and patient. elephone Encounter - Sonia Renae RN - 12/09/2014 10:20 AM PDTCall returned to patient: CT scan planned at [facility] on 12/17/14. She is hoping thi s will include chest region to "cover all bases". Asking also if CT constrast could be taken by Dr. Najera on Tuesday12/11/14 to [facility] for patient to brass pickler. 10:2 7 AM PDTTelephone Encounter - Hayley Price - 12/09/2014 9:[address] would like Dr Timmy Najera's nurse to give her a call. She states she has some questions for the nurse. S he can be reached on her direct work line at [phone]. documented in this encounter Plan of Treatment +--------+---------+ + + + | Date | Type | Specialty | Care Team | Description | +--------+---------+ + + + | 10/29/ | Office | Urology | Pedro Green, | | | 2019 | Visit | | DO Vaishali [address] | | | | | | [place] [address] | | | | | | [phone] | | | | | | | | +--------+---------+ + + + documented as of this encounter Visit Diagnoses Not on filedocumented in this encounter
--- OUTSIDE RECORDS SUMMARY | ~2019-10-19 | XMS | Encounter Summary ---
Demographics + + + | Address | [address] | | | [place] [address] | + + + | Home Phone [...] + | Poncho Oquendo | ECON | [address] | | | | | [place] | | | | | [address] | | + + + + + | Marta Upton | ECON | [place] | | | | | [address] | | + + + + + Care Team Providers + +------+ + | Care Trolley Car Overhauler Name | Role | Phone | [...] | | | ONCOLOGY CLINIC [address] | [facility] | | | | | [address] | [address] [place], [place] | | | | | [place] [address] | [address] | | | | | [phone] | | | +--------+ + + + [...] HIGHTOWER | | | | | | [place] [address] | | | | | | [phone] | | | | | | | | +--------+---------+ + + + documented as of this encounter Visit Diagnoses + + | Diagnosis | + + | Gallbladder cancer, 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
--- OUTSIDE RECORDS SUMMARY | ~2019-10-19 | XMS | Encounter Summary ---
Demographics + + + | Address | [address] | | | [place] [address] | + + + | Home Phone [...] Phone | + + +---------+ + | Ponhco Oquendo | ECON | Unknown | | + + +---------+ + | Elsy Upton | ECON | Unknown | | + + +---------+ + Care Team Providers + +------+ + | Care Medical Billing Coordinator Name | Role | Phone | [...] | | | Reconstructive | [place], | | | | | Services at [facility] | [place] [address] | | | | | [address] | [phone] | | | | | [facility] | | | | | | and Healing, | | | | | | Building [address], [address]th | | | | | | Floor [place], [place] | | | | | | [address] | | | | | | [phone] | | | +--------+ + + + [...] - Radha Peñaloza - 07/01/2008 12:32 PM [facility] Ms. Upton, thank you f or your [...] Facial Plastic and Reconstructive Surgery [facility] [phone] | [email or web address] This e-mail, facsimile, or letter and any [...] the sender. Thank you. From: Aura Upton [mailto:[email or web address]] Sent: Tuesday, June 24, 2008 11:45 AM To: Virgilio Buck Cc: [email or web address]; Radha Peñaloza Subject: RE: Request for Information [...]
--- OUTSIDE RECORDS SUMMARY | ~2019-10-19 | XMS | Encounter Summary ---
Demographics + + + | Address | [address] | | | [place] [address] | + + + | Home Phone [...] + | Poncho Oquendo | ECON | [address] | | | | | [place] | | | | | [address] | | + + + + + | Marta Upton | ECON | [place] | | | | | [address] | | + + + + + Care Team Providers + +------+ + | Care Logistics/Shipper Name | Role | Phone | + +------+ + | Valeriy Carmona DO | TAWNYA | | + +------+ + Encounter Details +--------+ + + + + | Date | Type | Department | Care Team | Description | +--------+ + + + + | 09/16/ | Hospital | [facility] | Reinaldo, | Gallbladder cancer, | | 2015 | Encounter | MED CTR MEDICAL | Epifanio Soler MD 6183 | carcinoma (HCC) | | | | ONCOLOGY CLINIC 401 | [facility] | (Primary Dx); | | | | [address] | [address] [place], [place] | Ovarian cyst; | | | | [place] [address] | [address] | Personal history of | | | | [phone] | | malignant neoplasm | | | [...] 2019 | Visit | | DO [address] | | | | | | [place] [address] | | | | | | [phone] | | | | | | | [...] [address] | [place] | [phone] | | [facility] | | [address] | | | - LABORATORY | | [...] [place] | | | | | | [address] | | | | + + + + + + + + | Specimen | + + | Blood specimen | | (specimen) | + + + + + + + | Performing | Address | City/State/Zipcode | Phone Number | | Organization | | | | + + + + + | [facility] | [address] | [place] [address] | [phone] | + + + + + Comprehensive [...] | | | | | mg/dL | [facility] | | | | | | MEDICAL | | | | | | CENTER - | | | | | | LABORATORY | | + + + + + + | eGFR, | >60Comment: GLOMERULAR | >=60 | [facility] | | | non- | FILTRATION | mL/min/1.73m2 | [facility] | | | [place] | RATE,ESTIMATED | | MEDICAL | | | | mL/min/1.35p8Hsbx than | | CENTER - | | [...] | | | | | mg/dL | [facility] | | | | | | [...] [address] | [place] | [phone] | | [facility] | | [address] | | | - LABORATORY | | [...] + | [facility] | [address] | [place] | [phone] | | [facility] | | [address] | | | - LABORATORY | | [...] [address] | [place] | [phone] | | [facility] | | [address] | | | - LABORATORY | | [...] | | | | | | [place] [address] | | | | + + + + + + + + | Specimen | + + | Blood specimen | | (specimen) | + + + + + + + | Performing | Address | City/State/Zipcode | Phone Number | | Organization | | | | + + + + + | [facility] | [address] | [place] [address] | [phone] | + + + + + [place] 125, Quant (09/16/2014 11:18 AM PDT) + +-------+ + + + | Component | Value | Ref Range | Performed | Pathologist | | | | | At | Signature | + +-------+ + + + | Cancer | 23 | 0 - 35 U/mL | [facility] | | | Antigen 125 | | | [facility] | | [...] ST. | [address] | [place], [place] | [phone] | | [facility] | | [address] | | | - LABORATORY | | [...]
--- OUTSIDE RECORDS SUMMARY | ~2019-10-19 | XMS | Encounter Summary ---
Demographics + + + | Address | [address] | | | [place] [address] | + + + | Home Phone [...] Team Providers + +------+ + | Care Juice Weigher Name | Role | Phone | [...] | Center at [facility] [address] | [address] [facility] | | | | | [facility] | [facility] | | | | | for [facility] and | [place], [place] | | | | | [facility] | [address] | | | | | [place], [place] | [phone] | | | | | [address] | | | | | | [phone] | | | +--------+ + + + [...] documented as of this encounter Miscellaneous Notes Scan - Yamila Benitez - 04/26/2012 8:09 AM PDTElectronically signed by Yamila Benitez at 8:09 AM PDTdocumented in this encounter Plan of Treatment Not on filedocumented as of this encounter Visit Diagnoses Not on filedocumented in this encounter"
--- OUTSIDE RECORDS SUMMARY | ~2019-10-19 | XMS | Encounter Summary ---
Demographics + + + | Address | [address] | | | [place] [address] | + + + | Home Phone [...] + | Poncho Oquendo | ECON | [address] | | | | | [place] | | | | | [address] | | + + + + + | Marta Upton | ECON | [place] | | | | | [address] | | + + + + + Care Team Providers + +------+ + | Care Investment Broker Name | Role | Phone | + +------+ + | Valeriy Carmona DO | PCP | | + +------+ + Reason for Visit +--------+--------+ + | Reason | Onset | Comments | | | Date | | +--------+--------+ + | Other | 11/18/ | | | | 2014 | | +--------+--------+ + Encounter Details +--------+ + + + + | Date | Type | Department | Care Team | Description | +--------+ + + + + | 11/18/ | Telephone | [facility] | Reinaldo, | Other | | 2014 | | MED CTR MEDICAL | Chad Soler MD 4849 | | | | | ONCOLOGY CLINIC 401 | [facility] | | | | | [address] | [address] [place], [place] | | | | | [place] [address] | [address] | | | | | [phone] | | | +--------+ + + + [...] Telephone Encounter - Chad Riggins MD - 11/18/2014 1:39 PM PDTReturned call. 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 Approved air travel. CHAD RIGGINS MD elephone Jo Ann chaves - Tila Baca - 11/18/2014 12:50 PM PDTMaureartemio called and stated that she would like to speak with Dr. Riggins about some of the concerns she has about the new prescrip tion Aransep that she is taking now one of her concerns is can you get on a plane while marion ng the medication thank you. P M PDTdocumented in this encounter Plan of Treatment +--------+---------+ + + + | Date | Type | Specialty | Care Team | Description | +--------+---------+ + + + | 10/29/ | Office | Urology | Pedro Green, | | | 2019 | Visit | | DO Vaishali [address] | | | | | | [place] [address] | | | | | | [phone] | | | | | | | | +--------+---------+ + + + documented as of this encounter Visit Diagnoses Not on filedocumented in this encounter"
--- OUTSIDE RECORDS SUMMARY | ~2019-10-19 | XMS | Encounter Summary ---
Demographics + + + | Address | [address] | | | [place] [address] | + + + | Home Phone [...] + + | Author | [facility] | | | and [place] | + + + | Organization | [facility] | | | and [place] | + + + | Address | Unknown | + + + | Phone | Unavailable | + + + Support + + + + + | Name | Relationship | Address | Phone | + + + + + | Poncho Oquendo | ECON | [address] | | | | | [place] | | | | | [address] | | + + + + + | Marta Upton | ECON | [place] | | | | | [address] | | + + + + + Care Team Providers + +------+ + | Care Eyeglass Cutter Name | Role | Phone | [...] | (HCC) | [place] | [place] [address] | | | | | Procedures | [address] | Phone: | | | | | [place] | [place], | [phone] | | | | | [place] | [place] [address] | Fax: | | | | | HCL | Phone: | [phone] | | | | | INJECTION, 1 | [phone] | | | | | | MG [place] | Fax: | | | | | | DEXAMETHASON | [phone] | | | | | | E SODIUM | | | | | | | PHOS, 1 MG | | | | | | | [place] | | | | | | | DIPHENHYDRAM | | | | | | | INE HCL | | | | | | | INJECTIO, 50 | | | | | | | MG [place] | | | | | | | FOSAPREPITAN | | | | | | | T INJECTION, | | | | | | | 1 MG [place] | | | | | | | EPOETIN | | | | | | | JJ, | | | | | | | NON-ESRD, | | | | | | | 1000 UNITS | | | | | | | [place] CISPLATIN | | | | | | | 10 MG | | | | | | | INJECTION | | | | | | | [place] | | | | | | | GEMCITABINE | | | | | | | HCL | | | | | | | INJECTION, | | | | | | | 200 MG [place] | | | | | | | LORAZEPAM | | | | | | | INJECTION, 2 | | | | | | | MG [place] | | | | | | | METHYLPREDNI | | | | | | | SOLONE | | | | | | | INJECTION, | | | | | | | 125 MG [place] | | | | | | | NORMAL | | | | | | | SALINE | | | | | | | SOLUTION | | | | | | | INFUS, 500 | | | | | | | ML [place] | | | | | | | NORMAL | | | | | | | SALINE | | | | | | | SOLUTION | | | | | | | INFUS, 250 | | | | | | | ML [place] | | | | | | | STERILE | | | | | | | WATER/SALINE | | | | | | | , 10 ML [place] | | | | | | | CHEMOTHER, | | | | | | | IV PUSH,EA | | | | | | | ADD DRUG [place] | | | | | | | CHEMOTHER, | | | | | | | IV INFUSION, | | | | | | | 1 HR [place] | | | | | | | CHEMOTHER, | | | | | | | IV INFUSION, | | | | | | | EA HR [place] | | | | | | | CHEMOTHER,NO | | | | | | | N-HORMONE | | | | | | | ANTI-NEOPL, | | | | | | | SUB-Q/IM [place] | | | | | | | [...] + + | 11/22/ | Hospital | [facility] | Vladimir Robles, | Gallbladder cancer, | | 2015 | Encounter | MED CTR CHEMO | MD [address] | carcinoma (HCC) | | | | INFUSION [address] [place], | (Primary Dx) | | | | [place], | [place] [address] | | | | | [place] [address] | [phone] | | | | | [phone] | | | +--------+ + + + [...] documented as of this encounter Miscellaneous Notes Addendum Note - Erin Brennan RN - 11/22/2014 12:47 PM PDTEncounter addended by: Holly Brennan RN on: 11/22/2014 12:47
Documentation filed: Charges VNElectronically s igned by Erin Brennan RN at 11/22/2014 12:47 PM PDTTreatment Plan - Sasha Renee RN - 11/22/2014 9:04 AM PDTViewed chart for weight, vital signs and lab results. Also v iewed chart for completion of medication and allergy review prior to chemotherapy administra tion noted labs and response by Dr. Robles in orders. Sasha Renee RNDATE/TIME: 11/22 9:04 documented in thi s encounter Plan of Treatment +--------+---------+ + + + | Date | Type | Specialty | Care Team | Description | +--------+---------+ + + + | 10/29/ | Office | Urology | Pedro Green, | | | 2019 | Visit | | DO [address] | | | | | | [place] [address] | | | | | | [phone] | | | | | | | [...] | | | | | | [place] [address] | | | | + + + [...] [address] | [place] [address] | [phone] | + + + + + [place] [...] [address] | [place] | [phone] | | [facility] | | [address] | | | - LABORATORY | | [...] + | [facility] | [address] | [place] | [phone] | | [facility] | | [address] | | | - LABORATORY | | [...] non- | FILTRATION | mL/min/1.73m2 | [facility] | | | [place]ian | RATE,ESTIMATED | | MEDICAL | | | | mL/min/1.03i2Quwz than | | CENTER - | | [...] 3.6 | 3.2 - 5.0 g/dL | [facility] [...] | | | | | | [facility] | | [...] | | bulin Ratio | | | [facility] | [...] [address] | [place] | [phone] | | [facility] | | [address] | | | - LABORATORY | | [...] + + + | Red Blood | 2.60 (L) | 3.70 - 5.20 [...] | | | | | g/dL | [facility] | | | | [...] + + | [facility] | [address] | [place] | [phone] | | [facility] | | [address] | | | - LABORATORY | | [...] | | | | | Intracatheter, ONCE, 11/22/14 | | AM PDT | | | [...] | | | over 1 Hours, ONCE, 11/22/14 | | | | | | | [...] | | | | | Care, Starting 11/22/14 at | | | | | [...]
--- OUTSIDE RECORDS SUMMARY | ~2019-10-19 | XMS | Encounter Summary ---
Demographics + + + | Address | [address] | | | [place] [address] | + + + | Home Phone [...] Team Providers + +------+ + | Care Distance Learning Technician Name | Role | Phone | [...] | 2015 | Encounter | [facility] | [address] | Appointment | | | | [address] | [address] [place] | | | | | [address] | [place], [place] | | | | | Pavilion, [address] [place] [address] | [address] | | | | | [place], [place] | [phone] | | | | | [address] | | | | | | [phone] | | | +--------+ + + + [...]
--- OUTSIDE RECORDS SUMMARY | ~2019-10-19 | XMS | Encounter Summary ---
Demographics + + + | Address | [address] | | | [place] [address] | + + + | Home Phone [...] Providers + +------+ + | Care Tractor Sweeper Operator Name | Role | Phone | [...] HIEN Mojica | | | | | [facility] [address] | | | | | [facility] | [place] [address] | | | | | [facility], | [phone] | | | | | [facility] | | | | | | [place], [place] | | | | | | [address] | | | | | | [phone] | | | +--------+ + + + [...] this encounter Miscellaneous Notes Telephone Encounter - Yamil Burns - 08/01/2017 11:50 AM PDTThis encounter has been admin istratively closed with the authorization of the [facility] Committee. elephone Encounter - James Bruno - 03/25/2016 10:00 A M PST----- Message from Rukhsana Lynn sent at 03/24/2016 3:44 PM PST ----- Please call pt to schedule a follow up with Dr. Grey last seen 06/2014. Thank you Electro nically signed by James Bruno at 03/25/2016 10:00 AM PSTdocumented in this encounter Plan of Treatment Not on filedocumented as of this encounter Visit Diagnoses Not on filedocumented in this encounter"
--- OUTSIDE RECORDS SUMMARY | ~2019-10-19 | XMS | Encounter Summary ---
Demographics + + + | Address | [address] | | | [place] [address] | + + + | Home Phone [...] + | Poncho Oquendo | ECON | [address] | | | | | [place] | | | | | [address] | | + + + + + | Marta Upton | ECON | [place] | | | | | [address] | | + + + + + Care Team Providers + +------+ + | Care Heavy Equipment Technician Name | Role | Phone | + +------+ + | Valeriy Carmona DO | TAWNYA | | + +------+ + Encounter Details +--------+ + + + + | Date | Type | Department | Care Team | Description | +--------+ + + + + | 12/17/ | Hospital | [facility] | Reinaldo, | Gallbladder cancer, | | 2015 | Encounter | MED CTR CHEMO | Epifanio Soler MD 6977 | carcinoma (HCC) | | | | INFUSION [address] | (Primary Dx); | | | | [place], | [address] [place], [place] | Carcinoma [place] gall | | | | [place] [address] | [address] | bladder (HCC); | | | | [phone] | | Neoplasm related | | | [...] | Visit | | DO [address] | | | | | | [place] [address] | | | | | | [phone] | | | | | | | [...] + | [facility] | [address] | [place] | [phone] | | [facility] | | [address] | | | - LABORATORY | | [...] mL/min/1.73m2 | Timmy YOMAIRA | | | [place] | RATE,ESTIMATED | | MEDICAL | | | | mL/min/1.35g5Zptl than | | CENTER - | | [...] + | [facility] | [address] | [place] | [phone] | | [facility] | | [address] | | | - LABORATORY | | [...] [address] | [place] | [phone] | | [facility] | | [address] | | | - LABORATORY | | [...] | | | | | | [place] [address] | | | | + + + [...] [address] | [place] [address] | [phone] | + + + + + [place] [...] [address] | [place] | [phone] | | [facility] | | [address] | | | - LABORATORY | | [...]
--- OUTSIDE RECORDS SUMMARY | ~2019-10-19 | XMS | Encounter Summary ---
Demographics + + + | Address | [address] | | | [place] [address] | + + + | Home Phone [...] Providers + +------+ + | Care Product Manufacturing Professional Name | Role | Phone | [...] | 2014 | Encounter | [facility] | [address] | | | | | Alexis [address] | [address] | | | | | [address] | [place], [place] | | | | | Alexis, [facility] floor | [address] | | | | | [place], [place] | [phone] | | | | | [address] | | | | | | [phone] | | | +--------+ + + + [...]
--- OUTSIDE RECORDS SUMMARY | ~2019-10-19 | XMS | Encounter Summary ---
Demographics + + + | Address | [address] | | | [place] [address] | + + + | Home Phone [...] Author | [facility] | | | and [place] | + + + | Organization | [facility] | | | and [place] | + + + | Address | Unknown | + + + | Phone | Unavailable | + + + Support + + + + + | Name | Relationship | Address | Phone | + + + + + | Poncho Oquendo | ECON | [address] | | | | | [place] | | | | | [address] | | + + + + + | Marta pUton | ECON | [place] | | | | | [address] | | + + + + + Care Team Providers + +------+ + | Care Kayak Maker Name | Role | Phone | [...] | | Gallbladder | MD Louise | Reinaldo | | | | | cancer | [address] | Chad Soler MD | | | | | (HCC) | [place]IE [place]IN | [address] | | | | | Procedures | [place] | [address] | | | | | [place] OFFICE | [address] | [address] | | | | | OUTPATIENT | Phone: | [place] | | | | | VISIT 25 | [phone] | [address] | | | | | MINUTES | Fax: | Phone: | | | | | | [phone] | [phone] | | | | | | | Fax: | | | | | | | [phone] | +--------+--------+ + + + + Encounter Details +--------+ + + + + | Date | Type | Department | Care Team | Description | +--------+ + + + + | 09/16/ | Hospital | [facility] | Reinaldo, | Gallbladder cancer, | | 2015 | Encounter | MED CTR MEDICAL | Chad Soler MD 2802 | carcinoma (HCC) | | | | ONCOLOGY CLINIC 401 | [facility] | (Primary Dx) | | | | [address] | [address] [place], [place] | | | | | [place] [address] | [address] | | | | | [phone] | | | +--------+ + + + [...] nt from the original. Hematology/Oncology Progress Note [facility] Pt. Name/Age/: Aura Upton 53 y.o. 1960 Med. Record Number: [id number] Date of admission: 09/16/2014 Identifying Statement: Aura Upton is a 53 y.o. female from [address] [place] [address] with Recurrent Cholangiocarcinoma. The patient chart and [...] Brandon Garcia March 29, 2012, pathological specimen [id number], analyzed by Dr. Bowers of [facility] and was notable for a poorly-differentiated adenoc arcinoma of the gallbladder. Liver biopsy demonstrated mild portal inflammation. 2. On April 28, 2012, she successfully underwent an R0 resection by Dr. Tai Stanton at [facility], pathological specimen [id number] was notable for the absence of any residual carcinoma within the gallbladder bed. However, 2/8 regional lym ph nodes contained regionally metastatic disease. 3. Consultation by Dr. Elva Grey of the [facility] on May returned the recommendation for adjuvant chemoradiation therapy following [id number] as follows: Capecitabine at 750 mg/m sq [...] staging by Dr. Oziel Casillas of the [facility]. Pathological analysis was notable for 9.5 [...] the [facility] in June 26, 2014 who recommended additional chemotherapy was cisplatin at 75 mg meter squared on day 1 a nd gemcitabine 1250 mg per meter squared on day one and day 8 of acute 21 day cycle for 6-8 cycles. A second opinion was obtained by Dr. Richie Thayer of the [facility] iance who returned the recommendation [...] the recommendations of Dr. Richie Thayerof the [facility] with gemcitabine at 1000 mg per meter squared on day one and day 8 wi th cisplatin 25 mg meter squared on day one and day 8 of a Q 21 day cycle beginning on July 26, 2014 complicated by grade 3 neutropenia and grade [address]. [address] scan of the chest, abdomen and pelvis that [facility] on September 16, 2014 demonstrated no [...] will return to see me at the [facility] in [place], [place] on September 20, 2014 for clinical [...] has been changed since signin Order Audit [facility] dexamethasone (DECADRON) 4 mg tablet (Taking) Take one tablet PO as directed. Number of times this order has been changed since signin Order [facility]it [facility] docusate calcium (SURFAK) 240 mg capsule (Taking) Take 240 mg by mouth as needed. Number of times this order has been changed since signin Order Aud[facility] fish oil 1,000 mg capsule (Taking) Take 1,000 mg by mouth Daily. Number of times this order has been changed since signin Order [facility] HYDROcodone-acetaminophen (VICODIN) 5-500 mg per tablet (Taking) Take 1 tablet by mouth e very 4 hours as needed. Number of times this order has been changed since signin Order Audit [facility] MULTIPLE VITAMIN PO (Taking) Take by mouth Daily. Number of times this order has been changed since signin Order Audit [facility] Probiotic Product (PROBIOTIC DAILY PO) (Taking) Take by mouth Daily. Number of times this order has been changed since signin Order Audit [facility] Allergy: Allergies Allergen Reactions Sulfa Antibiotics Objectives: [...] Gonzalez., Rodger Bro., Steven Figueroa., Birdie Burns., Shannan Varela., José Miguel Ramirez., Viraj, P TimmyP.: Toxicity And Response Criteria Of The Eastern [...] this chart may have been created with Karmaloop voice recognition software. Occasi onal wrong-word or sound-alike substitutions may have occurred due to the inherent stevenson itations of voice recognition software. Please read the chart carefully and recognize, using context, where these substitutions have occurred. documented in this encounter Miscellaneous Notes Assessment & Plan Note - Chad Riggins MD - 09/16/2014 9:09 PM PDTAssociated Prob jose(s): Gallbladder cancer, carcinoma (HCC)Aura return to clinic on September 16, 2014 to rev iew her CT scan from earlier today the demonstrates no evidence of metastatic or locally rec urrent cholangiocarcinoma of the gallbladder. Laboratory evaluation is notable for recurren t grade 3 thrombocytopenia. Plan; Aura will return to see me at the [facility] in [place], [place] on September 20, 2014 for clinical and laboratory follow up and consideration of #4 of c hemotherapy. Parrish mented in this encounter Plan of Treatment +--------+---------+ + + + | Date | Type | Specialty | Care Team | Description | +--------+---------+ + + + | 10/29/ | Office | Urology | Pedro Green, | | | 2019 | Visit | | DO [address] | | | | | | [place] [address] | | | | | | [phone] | | | | | | | | +--------+---------+ + + + documented as of this encounter Visit Diagnoses + + | Diagnosis | + + | Gallbladder cancer, 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
--- OUTSIDE RECORDS SUMMARY | ~2019-10-19 | XMS | Encounter Summary ---
Demographics + + + | Address | [address] | | | [place] [address] | + + + | Home Phone [...] Mailcode: | | | | | | [place], [place] | [address] | | | | | | [address] | for Health | | | | | | Phone: | and Healing, | | | | | | [phone] | [address], | | | | | | Fax: | 7th Floor | | | | | | [phone] | [place], [place] | | | | | | | [address] | | | | | | | Phone: | | | | | | | [phone] | | | | | | | Fax: | | | | | | | [phone] | +--------+--------+ + + + + Encounter Details +--------+---------+ + + + | Date | Type | Department | Care Team | Description | +--------+---------+ + + + | 05/17/ | Office | Hematology/Medical | Elva Grey, | Gallbladder cancer | | 2013 | Visit | Oncology at [facility] | [address] | (HCC) (Primary Dx); | | | | [address] | [address] | Post-operative pain | | | | Mailcode: CH7 | [place] [address] | | | | | [facility] | [phone] | | | | | and Healing, | | | | | | Building 1, | | | | | | Floor [place], [place] | | | | | | [address] | | | | | | [phone] | | | +--------+---------+ + + + [...] Narrative Pt has SO. Lives in [facility]. 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 Likes to camp, entertain. Family History: Family [...] and RT based on nomograms developed at [facility] based on SEER database. As there is no standard adjuvant regimen for this disease we have followed the regimen receloreto fitzgerald studied in the completed S0809 trial. This is [place]/Cap for 4 cycles, then restaging and chemoradiation with Cape as below: Capecitabine 750mg/m2 BID days 1-14 Gemcitabine 1000mg/m2 IV days 1,8 Every 21 days for 4 cycles Followed by: Capecitabine 665mg/m2 BID concurrent with RT She is currently only 3 weeks out from surgery and not yet ready for chemotherapy. She is from the [facility] and would like to get therapy closer to home. She states that she l oves closest to the [facility] and would like a referral to jenise [...]
--- OUTSIDE RECORDS SUMMARY | ~2019-10-19 | XMS | Encounter Summary ---
Demographics + + + | Address | [address] | | | [place] [address] | + + + | Home Phone [...] + | Poncho Oquendo | ECON | [address] | | | | | [place] | | | | | [address] | | + + + + + | Marta Upton | ECON | [place] | | | | | [address] | | + + + + + Care Team Providers + +------+ + | Care Diesel Locomotive Engineer Name | Role | Phone | + +------+ + | Valeriy Carmona DO | PCP | | + +------+ + Reason for Visit + +--------+ + | Reason | Onset | Comments | | | Date | | + +--------+ + | Medication Question | 07/03/ | | | | 2018 | | + +--------+ + Encounter Details +--------+ + + + + | Date | Type | Department | Care Team | Description | +--------+ + + + + | 07/03/ | Telephone | [facility] | Reinaldo, | Medication Question | | 2018 | | MED [facility] | Epifanio Soler MD 2617 | | | | | ONCOLOGY CLINIC 401 | [facility] | | | | | [address] | [address] [place], [place] | | | | | [place] [address] | [address] | | | | | [phone] | | | +--------+ + + + [...] Telephone Encounter - Epifanio Najera MD - 07/03/2018 9:34 AM PDTTask completed. Fax [facility]. Yamini GARNICA at [facility] notified. Electronically signed by: Epifanio Najera MD 07/03/2018 9:34 elephone Noble Pena - 07/03/2018 8:13 AM PDTPt called, she has been getting shots post chemo through the mail, but it didn't come, she said that Dr. Najera said she could get it @ [facility], but that an order would need to be sent to the pharmacy and that she should call first thing Tuesday morning. Asks for call if this can be done. She will be checking with hayley to see why this ship ment did not arrive. [phone] Thank you documented in this encou nter Plan of Treatment +--------+---------+ + + + | Date | Type | Specialty | Care Team | Description | +--------+---------+ + + + | 10/29/ | Office | Urology | Pedro Green, | | | 2019 | Visit | | DO [address] | | | | | | [place] [address] | | | | | | [phone] | | | | | | | | +--------+---------+ + + + documented as of this encounter Visit Diagnoses Not on filedocumented in this encounter"
--- OUTSIDE RECORDS SUMMARY | ~2019-10-19 | XMS | Encounter Summary ---
Demographics + + + | Address | [address] | | | [place] [address] | + + + | Home Phone [...] Providers + +------+ + | Care Freight Broker Agent Name | Role | Phone | + +------+ + | Tomasa Wagner | PCP | | + +------+ + Encounter Details +--------+ + + + + | Date | Type | Department | Care Team | Description | +--------+ + + + + | 06/12/ | Telephone | Digestive Health | Tai Stanton, | | | 2012 | | Center at [facility] | [address] [facility] | | | | | [facility] | [facility] | | | | | for Health and | [place], [place] | | | | | [facility] [place] [address] | [address] | | | | | [place], [place] | [phone] | | | | | [address] | | | | | | [phone] | | | +--------+ + + + [...] the Rx to be call into her [facility] pharmacy. Rx called into: [facility] [facility] [place] [address] elephone Encounter - Beth Osorio MA - [...] your pain scale: 3-5 /10 Can you molded goods spot picker the script if need to or should it be mailed?: Pick-up Pharmacy: Pharmacy Preferences: [facility] [place] [address] documented in this encoun ter Plan of Treatment Not on filedocumented as of this encounter Visit Diagnoses Not on filedocumented in this encounter"
--- OUTSIDE RECORDS SUMMARY | ~2019-10-19 | XMS | Encounter Summary ---
Demographics + + + | Address | [address] | | | [place] [address] | + + + | Home Phone [...] + | Poncho Oquendo | ECON | [address] | | | | | [place] | | | | | [address] | | + + + + + | Marta Upton | ECON | [place] | | | | | [address] | | + + + + + Care Team Providers + +------+ + | Care Global Engineering Manager Name | Role | Phone | [...] + + | 04/26/ | Surgery | [facility] | Pedro Green, | CYSTOSCOPY URETERAL | | 2019 | | REGIONAL SURGERY | DO [address] | STENT | | | | CENTER INTRA OP | [place] [address] | REMOVAL/REPLACEMENT | | | | [address] | [phone] | | | | | [place], [place] | | | | | | [address] | | | | | | [phone] | | | +--------+---------+ + + + [...] lasts more than a day, a fever [id number] (38 C), or trouble urinating. Date Last Reviewed: 02/15/201619995539-1609 [employer]. [address] [place] [address], [place] [address]. All righ ts reserved. This information is [...] out of the urethra Date Last Reviewed: 02/15/201619992525-1105 [employer]. [address] [place] [address]. All righ ts reserved. This information is [...] different fr om the original. [facility] Urology Primary Care Provider: No Physician on [...] this well. Her last exchange was at [facility] during a [...] and replacement; Surgeon: Pedro Green DO; Location: [facility] MAIN OR HYSTERECTOMY LIVER SURGERY OTHER SURGICAL HISTORY UNLISTED PROCEDURE ARTHROSCOPY OTHER SURGICAL HISTORY MEDIPORT INSERTION SINGLE OTHER SURGICAL HISTORY HARDWARE PRESENT OTHER SURGICAL HISTORY Left 07/05/2018 CYSTOSCOPY W/ URETERAL STENT PLACEMENT - Procedure: CYSTOSCOPY - STENT; Surgeon: Cheikh Green DO; Location: [facility] MAIN OR; Service: Urology; Laterality: [...] teral stent placement Surgeon: Pedro Green DO Prefabricator(s): NA Anesthesia: General LMA Estimated Blood Loss: [...] pause was performed. Following a preoperative pause, 21.5-Icelandic cystoscopic sheath with 30-degree lens was inse [...] was used to guide placement of the 7-Icelandic x 24 cm ureter al stent without [...] [address] | | | | | | [place] [address] | | | | | | [phone] | | | | | | | [...]
--- OUTSIDE RECORDS SUMMARY | ~2019-10-19 | XMS | Encounter Summary ---
Demographics + + + | Address | [address] | | | [place] [address] | + + + | Home Phone [...] + | Poncho qOuendo | ECON | [address] | | | | | [place] | | | | | [address] | | + + + + + | Marta Upton | ECON | [place] | | | | | [address] | | + + + + + Care Team Providers + +------+ + | Care Disease Control Inspector Name | Role | Phone | + +------+ + PCP | Unavailable | + +------+ + Encounter Details +--------+ + + + + | Date | Type | Department | Care Team | Description | +--------+ + + + + | 09/01/ | Hospital | [facility] | | | | 2012 - | Encounter | MED CTR XRAY [address] | | | | | | [address] [place] | | | | 09/13/ | | [place] [address] | | | | 2012 | | [phone] | | | +--------+ + + + [...] [address] | | | | | | [place] [address] | | | | | | [phone] | | | | | | | [...] + + + | White Blood | 5.8 | 4.0 - 11.0 K/uL | [facility] | | | Cells | | | [facility] | | | | | | MEDICAL | | | | | | CENTER - | | | | | | LABORATORY | | + + + + + + | Red Blood | 3.98 | 3.70 - 5.20 | [...] | | CONSISTENT WITH PREVIOUS | | ST. [...] + + | Performing | Address | City/[facility]/Zipcode | Phone Number | | Organization | | | | + + + + + | [facility] | [address] | [place], [place] | [phone] | | [facility] | | [address] | | | - LABORATORY | | | | + + + + + | [facility] | [address] | [place], [place] | | | [facility] | | [address], [facility] | | | [...] | | (formerly [facility]ad) [employer] | | [employer]. [place] | | | | Centaur immunoassay [...] [place] | | | | | | [address] CLIA: | | | | | | [id number] | | | | + + + + + + + + | Specimen | + + | | + + + + + + + | Performing | Address | City/State/Zipcode | Phone Number | | Organization | | | | + + + + + | [facility] | [address] | [place], [place] | [phone] | | [facility] | | [address] | | | - LABORATORY | | | | + + + + + | [facility] | [address] | [place], [place] | | | [facility] | | [address], [facility] | | | [...] | 12.7 | 6.0 - 17.0 | [facility] | [...] [address] | [place] | [phone] | | [facility] | | [address] | | | - LABORATORY | | | | + + + + + | [facility] | [address] | [place] | | | [facility] | | [address], [facility] | | | [...] + | [facility] | [address] | [place] | [phone] | | [facility] | | [address] | | | - LABORATORY | | | | + + + + + | [facility] | [address] | [place], [place] | | | [facility] | | [address] | | | - [...] + + + | White Blood | 5.8 | 4.0 - 11.0 K/uL | [facility] | | | Cells | | | [facility] | | | | | | MEDICAL | | | | | | CENTER - | | | | | | LABORATORY | | + + + + + + | Red Blood | 4.20 | 3.70 - 5.20 | [...] | | | | | g/dL | [place] | | | | | [...] + | [facility] | [address] | [place], [place] | [phone] | | [facility] | | [address] | | | - LABORATORY | | | | + + + + + | [facility] | [address] | [place], [place] | | | [facility] | | [address] | | | - [...] | | (formerly [employer]) [employer] | | [facility] | | | | Centaur immunoassay [...] Age[place] | | | | | | [address] CLIA: | | | | | | [id number] | | | | + + + + + + + + | Specimen | + + | | + + + + + + + | Performing | Address | City/State/Zipcode | Phone Number | | Organization | | | | + + + + + | [facility] | [address] | [place], [place] | [phone] | | [facility] | | [address] | | | - LABORATORY | | | | + + + + + | [facility] | [address] | [place], [place] | | | [facility] | | [id number] [place] [address] | | | - LABORATORY | | | | + + + + + Comprehensive Metabolic Panel (08/15/2012 7:43 AM PDT) + + + + + + | Component | Value | Ref Range | Performed | Pathologist | | | | | At | Signature | + + + + + + | Glucose | 104 | 70 - 109 mg/dL | [facility] [...] 3.6 | 3.2 - 5.0 gm/dL | [facility] [...] 7.1 (L) | 12 - 20 | [facility] | | | ine Ratio | | | [facility] | | | | | | MEDICAL | | | | | | CENTER - | | | | | | LABORATORY | | + + + + + + | Na | 140 | 136 - 149 mEq/L | [facility] [...] | 9.1 | 6.0 - 17.0 | [facility] | [...] [address] | [place] | [phone] | | [facility] | | [address] | | | - LABORATORY | | | | + + + + + | [facility] | [address] | [place] | | | [facility] | | [address] | | | - [...] + | [facility] | [address] | [place], [place] | [phone] | | [facility] | | [address] | | | - LABORATORY | | | | + + + + + | [facility] | [address] | [place], [place] | | | [facility] | | [address] [place] [address] | | | - LABORATORY | | | | + + + + + documented in this encounter Visit Diagnoses Not on filedocumented in this encounter"
--- OUTSIDE RECORDS SUMMARY | ~2019-10-19 | XMS | Encounter Summary ---
Demographics + + + | Address | [address] | | | [place] [address] | + + + | Home Phone [...] Author | [facility] | | | and [place] | + + + | Organization | [facility] | | | and [place] | + + + | Address | Unknown | + + + | Phone | Unavailable | + + + Support + + + + + | Name | Relationship | Address | Phone | + + + + + | Poncho Oquendo | ECON | [address] | | | | | [place] | | | | | [address] | | + + + + + | Marat Upton | ECON | [place] | | | | | [address] | | + + + + + Care Team Providers + +------+ + | Care Reading Efficiency Course Director Name | Role | Phone | [...] + + | 11/07/ | Telephone | [facility] | Reinaldo, | Other | | 2018 | | MED CTR MEDICAL | Epifanio Soler MD 0025 | | | | | [facility] | [facility] | | | | | [address] | [address] [place], [place] | | | | | [place] [address] | [address] | | | | | [phone] | | | +--------+ + + + [...] like advisement on what to do. Please [phone] signed by Noble Kent at 11/07/2017 9:45 AM PDTdocum ented in this encounter Plan of Treatment +--------+---------+ + + + | Date | Type | Specialty | Care Team | Description | +--------+---------+ + + + | 10/29/ | Office | Urology | Pedro Green, | | | 2019 | Visit | | DO [address]ish[address] | | | | | | [place] [address] | | | | | | [phone] | | | | | | | | +--------+---------+ + + + documented as of this encounter Visit Diagnoses Not on filedocumented in this encounter"
--- OUTSIDE RECORDS SUMMARY | ~2019-10-19 | XMS | Encounter Summary ---
Demographics + + + | Address | [address] | | | [place] [address] | + + + | Home Phone [...] + | Poncho Oquendo | ECON | [address] | | | | | [place] | | | | | [address] | | + + + + + | Marta Upton | ECON | [place] | | | | | [address] | | + + + + + Care Team Providers + +------+ + | Care Flight Controls Engineer Name | Role | Phone | [...] 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, | W [place]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 | MD [address] | [place], | | | | | (HCC) | [address] | [place] [address] | | | | | Procedures | [address] | Phone: | | | | | [place] NORMAL | OBED, | [phone] | | | | | [place] | [place] [address] | Fax: | | | | | SOLUTION | Phone: | [phone] | | | | | INFUS, [address] | [phone] | | | | | | ML [place] | Fax: | | | | | | NORMAL | [phone] | | | | | | SALINE [...] | | | | | 20 MG MI | | | | | [...] | | | | | | MI LORAZEPAM | | | | | | | INJECTION, | | | | | | | 2 MG MI | | | | | | | HYDROMORPHON | | | | | | | E 250 MG MI | | | | | | | CARBOPLATIN | | | | | | | INJECTION, | | | | | | | 50 MG MI IN | | | | | | | GEMCITABINE | | | | | | | HCL NOS | | | | | | | 200MG MI | | | | | | [...] + + | 07/31/ | Hospital | [facility] | Vladimir Robles, | Gallbladder cancer, | | 2020 | Encounter | MED CTR CHEMO | MD [address] | carcinoma (HCC) | | | | INFUSION [address] [place], | (Primary Dx) | | | | [place], | [place] [address] | | | | | [place] [address] | [phone] | | | | | [phone] | | | +--------+ + + + [...] [address] | | | | | | [place] [address] | | | | | | [phone] | | | | | | | [...] the | | | | PDT | ([facility]) | results section. | + [...] [address] | [place] | [phone] | | [facility] | | [address] | | | - LABORATORY | | [...] [address] | [address] | [phone] | | [facility] | | [address] | | | - LABORATORY | | [...] + + | Performed at: [address] [address], | REFERENCE LAB | | [place], [place] [id number] Industrial Roof Plumber: Ad Larose MD, Phone: | OSWALD - MARILYNN | | [phone] | | + + + + + + + + | Performing | Address | City/State/Zipcode | Phone Number | | Organization | | | | + + + + + | REFERENCE LAB | [address] | [place], [place] | [phone] | | [facility] | [address] | [address] | | + + + + + [...] use as of March | ng/mL | [facility] | | | | 2018. Check | [...] [address] | [place] | [phone] | | [facility] | | [address] | | | - LABORATORY | | [...] (H) | 60 - 106 mg/dL | [facility] | | | | | | [facility] | | | | | | MEDICAL | | | | | | CENTER - | | | | | | LABORATORY | | + + + + + + | BUN | 33 (H) | 9 - 23 mg/dL | [facility] | | | | | | [facility] | | | | | | MEDICAL | | | | | | CENTER - | | | | | | LABORATORY | | + + + + + + | Creatinine | 0.97 | 0.55 - 1.02 | [facility] | | | | | mg/dL | [facility] | | | | | | MEDICAL | | | | | | CENTER - | | | | | | LABORATORY | | + + + + + + | eGFR, | 59 (L)Comment: | >=60 | [facility] | | | non- | GLOMERULAR FILTRATION | mL/min/1.73m2 | [facility] | | | [place] | RATE,ESTIMATED | | MEDICAL | | | | mL/min/1.85j2Qlrh than | | CENTER - | | [...] [address] | [place] | [phone] | | [facility] | | [address] | | | - LABORATORY | | [...]
--- OUTSIDE RECORDS SUMMARY | ~2019-10-19 | XMS | Encounter Summary ---
Demographics + + + | Address | [address] | | | [place] [address] | + + + | Home Phone [...] Author | [facility] | | | and [place] | + + + | Organization | [facility] | | | and [place] | + + + | Address | Unknown | + + + | Phone | Unavailable | + + + Support + + + + + | Name | Relationship | Address | Phone | + + + + + | Poncho Oquendo | ECON | [address] | | | | | [place] | | | | | [address] | | + + + + + | Marta Upton | ECON | [place] | | | | | [address] | | + + + + + Care Team Providers + +------+ + | Care Ladle Cleaner Name | Role | Phone | + +------+ + | Valeriy Carmona DO | TAWNYA | | + +------+ + Encounter Details +--------+ + + + + | Date | Type | Department | Care Team | Description | +--------+ + + + + | 07/01/ | Abstract | [facility] | Nelda Fuchs, | | | 2014 | | MED CTR PHARMACY | [facility] [address] | | | | | [address] | [address], [place] | | | | | [place] [address] | [address] | | | | | [phone] | | | +--------+ + + + [...] this encounter Progress Notes Shila Nelda L, [facility] - 07/01/2014 1:37 PM PDTFormatting of this note might be different fro m the original. IDT PATIENT MEDICATION/PROFILE REVIEW [facility] SERVICES Pharmacy Recommendation [...] | | | | | [place] [address] | | | | | | [phone] | | | | | | | | +--------+---------+ + + + documented as of this encounter Visit Diagnoses Not on filedocumented in this encounter
--- OUTSIDE RECORDS SUMMARY | ~2019-10-19 | XMS | Encounter Summary ---
Demographics + + + | Address | [address] | | | [place] [address] | + + + | Home Phone [...] + + + | Author | [facility] | + + + | Organization | [facility] | + + + [...] Providers + +------+ + | Care Casino Investigator Name | Role | Phone | [...] Anesthesia | 6A Intra [address] | Chad Campoverde, | | | 2015 | Event | [address] | [address] | | | | | [facility] | [address] | | | | | Hospital Admitting | [place], [place] | | | | | Desk Located on the | [address] | | | | | 9th floor | [phone] | | | | | [place], [place] | | | | | | [address] | Aurea Rowell RN | | | | | | [address] | | | | | | [address] | | | | | | [place], [place] | | | | | | [address] | | +--------+ + + + + Anesthesia Record + + + + + | Procedure Name | Responsible | Anesthesia Start | Anesthesia Stop Time | | | Anesthesiologist | Time | | + + + + + | EXPLORATORY | Chad Campoverde MD | 06/06/14 0711 | 06/06/14 [...] encounter OR Notes Anesthesia Postprocedure Evaluation - Jony Hassan MD - 06/06/2014 3:27 PM PDTFormat ting of this note might be different from the original. [place] [id number] Allergies Allergen Reactions Sulfacetamide Sodium Hives Past Surgical History Procedure Laterality Date Tubal ligation 2002 section 1998 Endoscopic sinus surgery 2009 deviated septum Laparoscopic cholecystectomy 2012 Dilation and curettage 2000 miscarriage Dilation and curettage 2001 miscarriage Laparoscopic knee surgery 09/06/13 Laparoscopic knee surgery 03/21/14 Liver resection 04/2012 Temp: 36.5 C (97.7 F) Pulse: 65 Resp: 11 BP: 89/47 mmHg SpO2: 99 % Evaluation Patient personally seen and evaluated for recovery from anesthesia care, ROS including card , resp, Neuro, and GI w/o evidence of adverse effects and Abnormal VS noted - Indicate below Complications Other: BP [id number] systolic, slightly below her baseline of 110s systolic. Pt has zero pa in and is very happy with her anesthesia care. nesthesia Postproc edure Evaluation - Kwaku Beltrán CRNA - 06/06/2014 12:02 PM PDTFormatting of this no te might be different from the original. Aura [place] [id number] Allergies Allergen Reactions Sulfacetamide Sodium Hives Past Surgical History Procedure Laterality Date Tubal ligation 2002 section 1998 Endoscopic sinus surgery 2008 deviated septum Laparoscopic cholecystectomy 2012 Dilation and curettage 2000 miscarriage Dilation and curettage 2001 miscarriage Laparoscopic knee surgery 09/06/13 Laparoscopic knee surgery 03/21/14 Liver resection 04/2012 Temp: 36.5 C (97.7 F) Pulse: 75 Resp: 11 BP: 101/44 mmHg SpO2: 100 % Evaluation Patient personally seen and evaluated for recovery from anesthesia care, VS including tempe rature and hydration status are normal and ROS including card, resp, Neuro, and GI w/o evide nce of adverse effects Complications nesthesia Pre procedure Evaluation - Jony Hassan MD - 06/06/2014 6:28 AM PDTFormatting of this not e might be different from the original. 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 Within last 7 days HYDROCODONE 5 MG-ACETAMINOPHEN 325 MG TABLET Take 1 tablet by mouth every four hours as nee ded. Not to exceed 10 tablets per any 24 hour period. (Not to exceed 3250 mg of acetaminophe n from all products per 24 hour period.) 06/05/2014 PROBIOTIC ORAL Take 1 capsule by mouth once daily. Within last 30 days MULTI VITAMIN ORAL Take by mouth once daily. Within last 30 days Lab Results Component Value Date RATE 65 04/27/2012 ATRIALRATE 65 04/27/2012 MA 142 04/27/2012 QRS 86 04/27/2012 QT 398 04/27/2012 QTC 413 04/27/2012 PAXIS 56 04/27/2012 RAXIS 36 04/27/2012 TAXIS 36 04/27/2012 EKGDX Value: Normal sinus rhythm Normal ECG "I have personally interpreted this report, e valdemarer alone or with a trainee." Confirmed by JAVIER SANTIAGO ([id number]) on 04/29/2012 9:10:17 AM Preoperative Adult Anesthesia Plan Last edited 05/28/14 1038 by Lila Carbajal MD ROS Pertinent HPI: Pulmonary: no cough no rhinorrhea no sputum no URI no shortness of breath no wheezing Pt. Has no asthma no COPD No dx of sleep apnea Risks factors for sleep apnea: Age>50 Pt at low risk of MERNA Cardiovascular: Functional Capacity: Moderate - dyspnea on exertion, PND, palpitations and chest pressure no CAD no CHF no hypertension no pacemaker GI/Hepatic: abd pain with adnexal mass no GERD liver disease (h/o liver resection with treatment for gallbladder cancer) : No dysuria no renal failure Other : Types: genitourinary malignancy Endo: no Diabetes: Neurological: no seizures HX CORTICOSTEROID (prior lumbar ELIE) Remote > 6 months psychiatric problem (recent anxiety related to diagnosis) pain [...] Cooperative and Age appropriate Head & Neck/Airway: Neck ROM: full Neck Circumference: 34 cm. TM Distance:> 6cm Dentition: dental implants, bridges or caps present and missing teeth Date of last Dental Exam: 11/2013 Mallampati: II Mouth Opening: > = 3 cm C-Spine: normal Neck Anatomy: Normal Lung Exam: CTA(B), no w/r/r, good [...] 2-12 intact, Motor 5/5 strength globally with normal tone, Normal affect, Alert, oriented to person, place, time and No tremor Integument: - open wounds Color: pink Texture: Skin texture - normal Turgor: turgor normal Implants: None, 1038 Anesthesia Plan Comments ASA ASA 3 NPO Status NPO Status: NPO by protocol Monitors/Lines to be used Standard Anesthetic Consideration IV when asleep, Preop antibiotics, PONV prophylaxis and Premeds Induction intravenous induction Anesthetic Technique General; Post-Op Pain Plan epidural; Blood Products Interpretive Services Informed Consent PARQ discussed with: patient and spouse, Procedures, Alternatives, Risks, and Questions di scussed and Risk/benefit of anesthesia plan and blood product discussed ; ; Date Consent Ser ies Given: 06/06/2014 6:29 AM Code status in OR Patients Code Status in OR: FULL 06/06/2014 6:28 AM documented in this e ncounter Miscellaneous Notes Ane airway standard - Jony Hassan MD - 06/06/2014 8:53 AM PDTProcedure Reason for Intubation: For surgical procedure, Location Performed: OR , Patient was preoxyg enated Mask Ventilation Grade 1 - Ventilated by mask Rapid Sequence Induction: No Intubation Blade type: Johnson , Blade size: 2, Atraumatic laryngoscopy: Atraumatic Laryngoscopy, Intub ation adjuncts: N/A , Laryngoscopic view: Grade III, Fiberoptics used: N/A , Number of Attem pts: 2, Positive for EtCO2: Yes, Breath sounds: Bilateral and equal Prior intubation attempts: Blade type: Nicole , Blade size: 3, Atraumatic Laryngoscopy: second Atraumatic Laryngosc opy, Intubation adjuncts: N/A, , Laryngoscopic view: Grade III, Fiberoptics used: N/A ETT Ett Adult: Single-lumen cuffed ETT Size: 7 ETT secured with: adhesive tape Depth at Lip: 21 cm LMA Narrative Attending physically present Attending: CHAD CAMPOVERDE Performed by Resident URSULA HASSAN 1st attempt with MAC 3 but cords too anterior to view. Couldn't reach to valecula. 2nd att empt with Johnson 2- able to get just posterior part of false cords into view. Successful ETT placement with stylet in place. pidural Procedure - Jony Hassan MD - 06/06/2014 7:02 AM PDTPROCEDURE NAME Epidural or Caudal Information Epidural . Have received and accepted request from attending surgeon to offer advanced acu te pain management services to the patient Location performed: Pre-Op The patient was iden tified, the site marked,, full PARQ done Adult or Pediatric: Adult Procedure Patient position: Sitting, Epidural approach: Paramedian, Monitors: NIBP, SpO2 and EKG, Supplemental Oxygen Given, Sterile prep (ChloraPrep) drape a nd technique Technology Used: None Needle Tuohy with a 17g Needle insertion depth 5 cm Catheter depth 10 cm on the 1st attempt Parasthesia: No. Negative for blood. Vertebral Interspace: T9-10 CSF: Aspiration negati ve for CSF, Sensory Band:Side: bilateral, Tested: Temperature sensation to cold spray, Uppe r Level: T8, Lower Band:T12 KHANG: saline Assessment test dose given, Negative test dose reaction See MAR for Drug and Dose Complications: None, Technical Difficulty: Easy Intended Analge jeronimo: Satisfactory block in appropriate fashion Sensory Assessment: Decreased in area of bloc k Motor Assessment: Intact; Narrative Attending physically present CHAD CAMPOVERDEPerformed by Resident: JONY HASSAN MC/ANE PreOp Note - Jony Hassan MD - 06/06/2014 6:28 AM PDT ROS Pertinent HPI: 53yF with h/o cholangiocarcinoma s/p resection 2012 with incidental large pe lvic mass found on surveillance now indicated for ex-lap and JAKE, BSO. Pulmonary: no cough no shortness of breath no wheezing Pt. Has no asthma No dx of sleep apnea Risks factors for sleep apnea: Age>50 Pt at low risk of MERNA Cardiovascular: Functional Capacity: Moderate - dyspnea on exertion, PND, palpitations and chest pressure no CAD no CHF no pacemaker GI/Hepatic: abd pain with adnexal mass no GERD liver disease (h/o liver resection with tr eatment for gallbladder cancer) : no renal failure Other : Types: genitourinary malignancy Endo: no Diabetes: Neurological: no seizures HX CORTICOSTEROID (prior lumbar ELIE) Remote > 6 months psychiatr ic problem (recent anxiety related to diagnosis) pain Current Pain Level: Current pain level: 4 MS: arthritis (mainly knees) Type: osteoarthritis Heme/Onc: Pt. [...] bridges or caps present and missing teeth Den jason risk discussed with/pt : Yes Date of last Dental Exam: 11/2013 Chahal: No Mallampati: II Mouth Opening: > = 3 cm C-Spine: normal Neck Anatomy: Normal and Thick, obese Lung Exam: CTA(B), no w/r/r, good air movement, no increased work of breathing and speaking in full sentences breath sounds normal Cardiac: Rhythm: regular Rate: normal murmur Abdominal: General Findings: Nondistended and Deferred obesity Musculoskeletal: Findings: tone normal and normal strength Neuro/Psych: alert Findings: Cranial nerves 2-12 intact, Motor 5/5 strength globally with n ormal tone, Normal affect, Alert, oriented to person, place, time and No tremor Integument: - lesion, rash and open wounds Color: pink Texture: Skin texture - normal Turgor: turgor normal Implants: None, MC/ANE PreOp Note - O Lila Carbajal MD - 05/28/2014 10:32 AM PDT ROS Pertinent HPI: Pulmonary: no cough no rhinorrhea no sputum no URI no shortness of breath no wheezing Pt. Has no asthma no COPD No dx of sleep apnea Risks factors for sleep apnea: Age>50 Pt at low risk of MERNA Cardiovascular: Functional Capacity: Moderate - dyspnea on exertion, PND, palpitations and chest pressure no CAD no CHF no hypertension no pacemaker GI/Hepatic: abd pain with adnexal mass no GERD liver disease (h/o liver resection with tr eatment for gallbladder cancer) : No dysuria no renal failure Other : Types: genitourinary malignancy Endo: no Diabetes: Neurological: no seizures HX CORTICOSTEROID (prior lumbar ELIE) Remote > 6 months psychiatr ic problem (recent anxiety related to diagnosis) pain [...] 3 cm C-Spine: normal Neck Anatomy: Normal Lung Exam: CTA(B), no w/r/r, good [...] - normal Turgor: turgor normal Implants: None, documented in thi s encounter Plan of [...] 10:46 | | | | | Starting [facility] 06/06/14 at 0752, | | AM PDT | | | | | Until [facility] 06/06/14 at 1106 | | | | [...] | fentaNYL citrate (PF) | Given | 06/07/19 | 50 mcg [...] 10:51 | | | | | Starting Adriana 06/06/14 at 1051, | | AM PDT [...] +-------+ +------+---+---+ | lidocaine-EPINEPHrine | Given | 04/23/20 | 2 mL | | | | [...]
--- OUTSIDE RECORDS SUMMARY | ~2019-10-19 | XMS | Encounter Summary ---
Demographics + + + | Address | [address] | | | [place] [address] | + + + | Home Phone [...] Author | [facility] | | | and [place] | + + + | Organization | [facility] | | | and [place] | + + + | Address | Unknown | + + + | Phone | Unavailable | + + + Support + + + + + | Name | Relationship | Address | Phone | + + + + + | Poncho Omar Oquendo | ECON | [address] | | | | | [place] | | | | | [address] | | + + + + + | Marta Upton | ECON | [place] | | | | | [address] | | + + + + + Care Team Providers + +------+ + | Care Aluminum Welder Name | Role | Phone | [...] + + | 04/29/ | Telephone | [facility] | Pedro Green, | Follow-up | | 2019 | | UROLOGY [address] | DO [address] | | | | | [address] | [place] [address] | | | | | [place], [place] | [phone] | | | | | [address] | | | | | | [phone] | | | +--------+ + + + [...] Karimi Sex: Female, 58 y.o., 1960 Address: [address] [place] [address] Hm: [phone] Hm: [phone] Follow up in 4-5 months documented in this enco unter Plan of Treatment +--------+---------+ + + + | Date | Type | Specialty | Care Team | Description | +--------+---------+ + + + | 10/29/ | Office | Urology | Pedro Green, | | 2019 | Visit | | DO [address] | | | | | | [place] [address] | | | | | | [phone] | | | | | | | | +--------+---------+ + + + documented as of this encounter Visit Diagnoses Not on filedocumented in this encounter"
--- OUTSIDE RECORDS SUMMARY | ~2019-10-19 | XMS | Encounter Summary ---
Demographics + + + | Address | [address] | | | [place] [address] | + + + | Home Phone [...] Providers + +------+ + | Care Communications Consultant Name | Role | Phone | [...] | 2014 | Encounter | [facility] | [address] | Return to Work | | | | [address] | [address] | Authorization? | | | | [address] | [place], [place] | | | | | Alexis, [facility] floor | [address] | | | | | [place], [place] | [phone] | | | | | [address] | | | | | | [phone] | | | +--------+ + + + [...]
--- OUTSIDE RECORDS SUMMARY | ~2019-10-19 | XMS | Encounter Summary ---
Demographics + + + | Address | [address] | | | [place] [address] | + + + | Home Phone [...] Team Providers + +------+ + | Care Institutional Commodity Analyst Name | Role | Phone | [...] Pharmacy | | | | | | [address] | | | | | | [place], [place] | | | | | | [address] | | | | | | [phone] | | | +--------+ + + + [...]
--- OUTSIDE RECORDS SUMMARY | ~2019-10-19 | XMS | Encounter Summary ---
Demographics + + + | Address | [address] | | | [place] [address] | + + + | Home Phone [...] Author | [facility] | | | and [place] | + + + | Organization | [facility] | | | and [place] | + + + | Address | Unknown | + + + | Phone | Unavailable | + + + Support + + + + + | Name | Relationship | Address | Phone | + + + + + | Poncho Omar Oquendo | ECON | [address] | | | | | [place] | | | | | [address] | | + + + + + | Marta Upton | ECON | [place] | | | | | [address] | | + + + + + Care Team Providers + +------+ + | Care Business Development Engineer Name | Role | Phone | [...] | | renal and | OBED, | [place], [place] | | | | | ureteral | [place] | [address] Phone: | | | | | calculous | [address] | [phone] | | | | | obstruction | Phone: | Fax: | | | | | | [phone] | [phone] | | | | | | Fax: | | | | | | | [phone] | | +--------+--------+ + + + + Encounter Details +--------+---------+ + + + | Date | Type | Department | Care Team | Description | +--------+---------+ + + + | 03/26/ | Office | [facility] | Pedro Green, | Gallbladder cancer, | | 2019 | Visit | UROLOGY [address] | DO [address] | carcinoma (HCC) | | | | [address] | [place] [address] | (Primary Dx); | | | | [place], [place] | [phone] | Obstruction of left | | | | [address] | | ureter | | | | [phone] | | | +--------+---------+ + + + [...] encounter Patient Instructions Patient Instructions Eleonora Saxena, Crib Pad Maker - 03/26/2019 10:30 AM PSTPLAN : Proceed [...] MUST receive a cardiac clearance from your chef's assistant prior to surgery. Family members (transporter driver) need to stay here during the procedure and can leave once patient i s discharged. Location: [facility] ([address] [place], [place] [address] [place] [address]) Time: You will receive a call around [...] related questions or concerns, please contact our Crib Pad Maker Christine parikh at PLAN : Proceed with [...] MUST receive a cardiac clearance from your chef's assistant prior to surgery. Family members (transporter driver) need to stay here during the procedure and can leave once patient is discharged. Location: [facility] ([address] [place], [place] [address] [place] [address]) Time: You will receive a call around [...] related questions or concerns, please contact our Crib Pad Maker Christine parikh at documented in this encounter Progress Notes Pedro Green DO - 03/26/2019 10:30 AM PSTFormatting of this note might be different fr om the original. [facility]rology Primary Care Provider: No [...] well. Her last exchange was at [facility] during a septic episode. Her last [...] and replacement; Surgeon: Pedro coker DO; Location: [facility] MA[facility] OR HYSTERECTOMY LIVER SURGERY OTHER SURGICAL HISTORY UNLISTED PROCEDURE ARTHROSCOPY OTHER SURGICAL HISTORY MEDIPORT INSERTION SINGLE OTHER SURGICAL HISTORY HARDWARE PRESENT OTHER SURGICAL HISTORY Left 07/05/2018 CYSTOSCOPY W/ URETERAL STENT PLACEMENT - Procedure: CYSTOSCOPY - STENT; Surgeon: Pedro Green DO; Location: [facility]; Service: Urology; Laterality: Left; stent [...] [address] | | | | | | [place] [address] | | | | | | [phone] | | | | | | | | +--------+---------+ + + + documented as of this encounter Visit Diagnoses + + | Diagnosis | + + | Gallbladder cancer, 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
--- OUTSIDE RECORDS SUMMARY | ~2019-10-19 | XMS | Encounter Summary ---
Demographics + + + | Address | [address] | | | [place] [address] | + + + | Home Phone [...] + +------+ + | Care Straw Hat Plunger Operator Name | Role | Phone | [...] [address] | | | | | [address] [facility] | [place] [address] | | | | | Health and Healing, | [phone] | | | | | [facility] | | | | | | [place], [place] | | | | | | [address] | | | | | | [phone] | | | +--------+ + + + [...]
--- OUTSIDE RECORDS SUMMARY | ~2019-10-19 | XMS | Encounter Summary ---
Demographics + + + | Address | [address] | | | [place] [address] | + + + | Home Phone [...] Team Providers + +------+ + | Care Boiling House Oiler Name | Role | Phone | [...] | neoplasm of | [address]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 | [address] | [facility] | | | | | (HCC) | [address] | [address] | | | | | Procedures | [place] | | | | | CONSULT TO | [address] | [address] Phone: | | | | | HEMATOLOGY / | Phone: | [phone] | | | | | ONCOLOGY | [phone] | Fax: | | | | | PRACTICE | Fax: | [phone] | | | | | | [phone] | | +--------+--------+ + + + + Encounter Details +--------+---------+ + + + | Date | Type | Department | Care Team | Description | +--------+---------+ + + + | 06/26/ | Office | [facility] | Elva Grey, | 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 | Clinics at S | [address] | (HCC) (Primary Dx) | | | | [facility] [address] | [facility] [address] | | | | | Faria [facility] for | [place] [address] | | | | | Health and Healing, | [phone] | | | | | Building [address] | | | | | | [place], [place] | | | | | | [address] | | | | | | [phone] | | | +--------+---------+ + + + [...] negative for malignancy - Adjuvant chemotherapy recommended: Jim Hogg/Cap for 4 cycles then restaging - 09/13/12-10/23/12 Chemoradiation with Cape - Treated locally by Dr Najera - CT on 03/18/2014 which noted a left ovarian cyst measuring 5.5 x 5.8 x 2.6 cm - Referred to Dr Henderson in [place] [facility] - 06/07/14 To [place] for Exploratory [...] excised lymph nodes from the gallbladder bed ([id number], slides E3-4). Additionally, immunohistochemical staining on the [...] of benefit - recommend 1st line chemotherapy, Jim Hogg/Cisplatin would be standard, no clinical trials open at [facility] for 1st line therapy, and would not [...]
--- OUTSIDE RECORDS SUMMARY | ~2019-10-19 | XMS | Encounter Summary ---
Demographics + + + | Address | [address] | | | [place] [address] | + + + | Home Phone [...] Team Providers + +------+ + | Care Carbon Blocks Press Operator Name | Role | Phone [...] | | | | | | | [place], [place] | | | | | | | [address] | | | | | | | Phone: | | | | | | | [phone] | | | | | | | Fax: | | | | | | | [phone] | +--------+--------+ + + + + Encounter Details +--------+---------+ + + + | Date | Type | Department | Care Team | Description | +--------+---------+ + + + | 03/07/ | Office | [facility] | Aamir Lau, | Chronic Ethmoidal | | 2008 | Visit | Center at [facility] [address] | MD [address] | Sinusitis | | | | [address] | [place], [place] | | | | | for Health and | [address] | | | | | [facility] 1, | [phone] | | | | | [address] [place] [address] | | | | | | [place], [place] | | | | | | [address] | | | | | | [phone] | | | +--------+---------+ + + + [...] of this encounter Progress Notes Aamir Lau MD - 03/07/2008 4:31 PM PSTI personally interviewed the patient, cooper ashley the pertinent parts of the physical examination and procedure and personally formulated the plan. I have reviewed, entered my findings, and agree with the above documentation. Aamir Lau M.D., M.P.H., F.A.C.S. Director, [facility] Professor and Chief, Rhinology and Sinus Surgery Department of Otolaryngology/Head and Neck Surgery austina Barbosa MD - 03/07/2008 3:51 PM PST HPI: Aura Upton is a 47 y.o. female who presents to the [facility] for foll ow up of S/P Sinus Surgery (septoplasty) with Dr. Benedict in [place]. Current symptoms inc lude nasal congestion. Symptoms [...] | + + +--------+ + + | IN NASAL | Procedures | Routin | Chronic Ethmoidal | Ordered: 03/07/2008 | | ENDOSCOPY,DX | | e | Sinusitis | | + + +--------+ + + documented as of this encounter Visit Diagnoses + + | Diagnosis | + + | Chronic ethmoidal sinusitis | + + documented in this encounter"
--- OUTSIDE RECORDS SUMMARY | ~2019-10-19 | XMS | Encounter Summary ---
Demographics + + + | Address | [address] | | | [place] [address] | + + + | Home Phone [...] + | Poncho Oquendo | ECON | [address] | | | | | [place] | | | | | [address] | | + + + + + | Marta Upton | ECON | [place] | | | | | [address] | | + + + + + Care Team Providers + +------+ + | Care Rigging Up Man Name | Role | Phone | [...] | | | ONCOLOGY CLINIC [address] | [facility] | | | | | [address] | [address] [place], [place] | | | | | [place] [address] | [address] | | | | | [phone] | | | +--------+ + + + [...] [address] | | | | | | [place] [address] | | | | | | [phone] | | | | | | | | +--------+---------+ + + + documented as of this encounter Visit Diagnoses + + | Diagnosis | + + | Gallbladder cancer, 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
--- OUTSIDE RECORDS SUMMARY | ~2019-10-19 | XMS | Encounter Summary ---
Demographics + + + | Address | [address] | | | [place] [address] | + + + | Home Phone [...] Providers + +------+ + | Care Retail Marketing Specialist Name | Role | Phone [...] | | 2013 | | Center at [facility] [address] | [address] [facility] | Review ([facility] | | | | [facility] | [facility] | OUTSIDE PROCEDURE | | | | for [facility] and | [place], [place] | REPORT) | | | | [facility], [facility] 2 | [address] | | | | | [place], [place] | [phone] | | | | | [address] | | | | | | [phone] | | | +--------+ + + + [...]
--- OUTSIDE RECORDS SUMMARY | ~2019-10-19 | XMS | Encounter Summary ---
Demographics + + + | Address | [address] | | | [place] [address] | + + + | Home Phone | | + + + | Preferred Language | Unknown | + + + | Marital Status | | + + + | Mosque Affiliation | Unknown | + + + | Race | White | + + + | Ethnic Group | Not or | + + + Author + + + | Author | [facility] | | | and [place] | + + + | Organization | [facility] | | | and [place] | + + + | Address | Unknown | + + + | Phone | Unavailable | + + + Support + + + + + | Name | Relationship | Address | Phone | + + + + + | Poncho Oquendo | ECON | [address] | | | | | [place] | | | | | [address] | | + + + + + | Marta Upton | ECON | [place] | | | | | [address] | | + + + + + Care Team Providers + +------+ + | Care Batch Unit Treater Name | Role | Phone | + [...] W | | | | | | [address] [place] | | | | 09/13/ | | [place] [address] | | | | 2012 | | [phone] | | | +--------+ + + + [...] [place] | | | | | | [place] [address] | | | | | | [phone] | | | | | | | [...] + + | Performing | Address | City/[facility]/Zipcode | Phone Number | | Organization | | | | + + + + + | [facility] | [address] | [place], [place] | [phone] | | [facility] | | [address] | | | - LABORATORY | | | | + + + + + | [facility] | [address] | [place], [place] | | | [facility] | | [address], [facility] | | | - LABORATORY | [...] | | (formerly Mahad) Advia | | [employer]. YOMAIRA | | | | Centaur immunoassay [...] Agee | | | | | | [address] CLIA: | | | | | | [id number] | | | | + + + + + + + + | Specimen | + + | | + + + + + + + | Performing | Address | City/State/Zipcode | Phone Number | | Organization | | | | + + + + + | [facility] | [address] | [place], [place] | [phone] | | [facility] | | [address] | | | - LABORATORY | | | | + + + + + | [facility] | [address] | [place], [place] | | | [facility] | | [address], [facility] | | | - LABORATORY | [...] [address] | [place] | [phone] | | [facility] | | [address] | | | - LABORATORY | | | | + + + + + | [facility] | [address] | [place] | | | [facility] | | [address], [facility] | | | - LABORATORY | [...] + | [facility] | [address] | [place] | [phone] | | [facility] | | [address] | | | - LABORATORY | | | | + + + + + | [facility] | [address] | [place], [place] | | | [facility] | | [address] | | | - LABORATORY [...] + | [facility] | [address] | [place], [place] | [phone] | | [facility] | | [address] | | | - LABORATORY | | | | + + + + + | [facility] | [address] | [place], [place] | | | [facility] | | [address] | | | - LABORATORY [...] | | (formerly [employer]ad) Advia | | [facility] | | | | Centaur [...] Agee | | | | | | [address] CLIA: | | | | | | [id number] | | | | + + + + + + + + | Specimen | + + | | + + + + + + + | Performing | Address | City/State/Zipcode | Phone Number | | Organization | | | | + + + + + | [facility] | [address] | [place], [place] | [phone] | | [facility] | | [address] | | | - LABORATORY | | | | + + + + + | [facility] | [address] | [place], [place] | | | [facility] | | [id number] [place] [address] | | | - LABORATORY | | [...] [address] | [place] | [phone] | | [facility] | | [address] | | | - LABORATORY | | | | + + + + + | [facility] | [address] | [place] | | | [facility] | | [address] | | | - LABORATORY [...] + | [facility] | [address] | [place], [place] | [phone] | | [facility] | | [address] | | | - LABORATORY | | | | + + + + + | [facility] | [address] | [place], [place] | | | [facility] | | [address] [place] [address] | | | - LABORATORY | | | | + + + + + documented in this encounter Visit Diagnoses Not on filedocumented in this encounter"
--- OUTSIDE RECORDS SUMMARY | ~2019-10-19 | XMS | Encounter Summary ---
Demographics + + + | Address | [address] | | | [place] [address] | + + + | Home Phone [...] Providers + +------+ + | Care Environmental Change Analyst Name | Role | Phone | [...] | | | | | | | [facility] | | | | | | | for Health | | | | | | | and Healing, | | | | | | | Building [address] | | | | | | | [place], [place] | | | | | | | [address] | | | | | | | Phone: | | | | | | | [phone] | | | | | | | Fax: | | | | | | | [phone] | +--------+--------+ + + + + Encounter Details +--------+---------+ + + + | Date | Type | Department | Care Team | Description | +--------+---------+ + + + | 11/01/ | Office | Digestive Health | Tai Stanton, | Gallbladder | | 2012 | Visit | Center at [facility] [address] | MD [address] | carcinoma (HCC) | | | | [facility] | [address] | (Primary Dx) | | | | for Health and | [place], [place] | | | | | [facility] 2 | [address] | | | | | [place], [place] | [phone] | | | | | [address] | | | | | | [phone] | | | +--------+---------+ + + + [...] the resident s note. Tai Stanton M.D. [employer] ([facility]) Professor and Vice-Construction Safety Manager of Surgery The Shahriar Nava Chair for Pancreatic Disease Research Pancreatic/ HepatoBiliary and Foregut Working Groups Office email: [email or web address] Smitha Ngo Md - [...] primary oncologist (plan for survellence imaging in [facility]) -- Return to surgery clinic as needed Dr. Stanton has seen and examined the patient and agrees with the above plan. Signed: Smitha Loomis MD General Surgery Pager: [phone] [facility] Department of Surgery documented in this en counter Plan of Treatment Not on filedocumented as of this encounter Visit Diagnoses + + | Diagnosis | + + | Gallbladder 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
--- OUTSIDE RECORDS SUMMARY | ~2019-10-19 | XMS | Encounter Summary ---
Demographics + + + | Address | [address] | | | [place] [address] | + + + | Home Phone [...] + | Poncho Oquendo | ECON | [address] | | | | | [place] | | | | | [address] | | + + + + + | Marta Upton | ECON | [place] | | | | | [address] | | + + + + + Care Team Providers + +------+ + | Care Lead C Developer Name | Role | Phone | [...] + + | 09/02/ | Telephone | [facility] | Reinaldo, | Other | | 2014 | | [facility] | Epifanio Soler MD [address] | | | | | ONCOLOGY CLINIC [facility] | [facility] | | | | | [address] | [address] [place], [place] | | | | | [place] [address] | [address] | | | | | [phone] | | | +--------+ + + + [...] with a nurse jaclyn hannah call him [phone] signed by Tila Baca at 09/02/2014 3:00 PM PDTdocumented in this encounter Plan of Treatment +--------+---------+ + + + | Date | Type | Specialty | Care Team | Description | +--------+---------+ + + + | 10/29/ | Office | Urology | Pedro Green, | | | 2019 | Visit | | DO [address] | | | | | | [place] [address] | | | | | | [phone] | | | | | | | | +--------+---------+ + + + documented as of this encounter Visit Diagnoses Not on filedocumented in this encounter"
--- OUTSIDE RECORDS SUMMARY | ~2019-10-19 | XMS | Encounter Summary ---
Demographics + + + | Address | [address] | | | [place] [address] | + + + | Home Phone | | + + + | Preferred Language | Unknown | + + + | Marital Status | | + + + | Restorationism Affiliation | Unknown | + + + | Race | White | + + + | Ethnic Group | Not or | + + + Author + + + | Author | [facility] | | | and [place] | + + + | Organization | [facility] | | | and [place] | + + + | Address | Unknown | + + + | Phone | Unavailable | + + + Support + + + + + | Name | Relationship | Address | Phone | + + + + + | Poncho Oquendo | ECON | [address] | | | | | [place] | | | | | [address] | | + + + + + | Marta Upton | ECON | [place] | | | | | [address] | | + + + + + Care Team Providers + +------+ + | Care Centrifugal Separator Name | Role | Phone | [...] + + | 05/20/ | Telephone | [facility] | Reinaldo, | Care Coordination | | 2019 | | MED [facility] | Epifanio Soler MD 140[address] | | | | | ONCOLOGY CLINIC 401 | [facility] | | | | | [address] | [address] [place], [place] | | | | | [place] [address] | [address] | | | | | [phone] | | | +--------+ + + + [...] Kent - 05/21/2019 3:30 PM PDTSerenity from [employer] called to advise cammy barnhart that she is the pts ed case manager if there is anything he can think of that she can do to assist patient. Her # is [phone] signed by Noble Kent at 05/21/2019 3:32 PM PDTdoc umented in this encounter Plan of Treatment +--------+---------+ + + + | Date | Type | Specialty | Care Team | Description | +--------+---------+ + + + | 10/29/ | Office | Urology | Pedro Green, | | 2019 | Visit | | DO [address] | | | | | | [place] [address] | | | | | | [phone] | | | | | | | | +--------+---------+ + + + documented as of this encounter Visit Diagnoses Not on filedocumented in this encounter"
--- OUTSIDE RECORDS SUMMARY | ~2019-10-19 | XMS | Encounter Summary ---
Demographics + + + | Address | [address] | | | [place] [address] | + + + | Home Phone [...] + | Author | [facility] | | | and [place] | + + + | Organization | [facility] | | | and [place] | + + + | Address | Unknown | + + + | Phone | Unavailable | + + + Support + + + + + | Name | Relationship | Address | Phone | + + + + + | Poncho Oquendo | ECON | [address] | | | | | [place] | | | | | [address] | | + + + + + | Marta Upton | ECON | [place] | | | | | [address] | | + + + + + Care Team Providers + +------+ + | Care Block Splitter Operator Name | Role | Phone | [...] W | | | | | | [place], | | | | | | [place] [address] | | | | | | [phone] | | | +--------+ + + + [...] [address] | | | | | | [place] [address] | | | | | | [phone] | | | | | | | | +--------+---------+ + + + documented as of this encounter Visit Diagnoses Not on filedocumented in this encounter"
--- OUTSIDE RECORDS SUMMARY | ~2019-10-19 | XMS | Encounter Summary ---
Demographics + + + | Address | [address] | | | [place] [address] | + + + | Home Phone [...] Team Providers + +------+ + | Care Beverage Host Name | Role | Phone | + +------+ + PCP | Unavailable | + +------+ + Encounter Details +--------+ + + + + | Date | Type | Department | Care Team | Description | +--------+ + + + + | 04/11/ | Abstract | Digestive Health | Tai Stanton, | | | 2012 | | [place] [address] [address] | [address] [facility] | | | | | [address] | [facility] | | | | | for Health and | [place], [place] | | | | | [facility] | [address] | | | | | [place], [place] | [phone] | | | | | [address] | | | | | | [phone] | | | +--------+ + + + [...]
--- OUTSIDE RECORDS SUMMARY | ~2019-10-19 | XMS | Encounter Summary ---
Demographics + + + | Address | [address] | | | [place] [address] | + + + | Home Phone [...] + +------+ + | Care Director Of Business Applications Name | Role | Phone | + [...] | | | | | Procedures | [place], [place] | [place], [place] | | | | | CONSULT TO | [address] | [address] | | | | | ENT / FACIAL | Phone: | Phone: | | | | | PLASTIC | [phone] | [phone] | | | | | SURGERY | Fax: | Fax: | | | | | | [phone] | [phone] | +--------+--------+ + + + + Encounter [...] | | | Reconstructive | Velma Whitfield [place], | Septal Defect | | | | Services at [facility] | [place] [address] | | | | | [address] | [phone] | | | | | [facility] | | | | | | and [place]ny, | | | | | | Building | | | | | | Floor [place], [place] | | | | | | [address] | | | | | | [phone] | | | +--------+---------+ + + + [...] today. Photos obtained. She met with my loom technician maximo hirsch. Followup arranged for preop. Time spent with patient /family, reviewing studies/ recor ds 20 minutes, with >50 % of time spent in consultation and coordination of care. Virgilio Buck MD FACS Professor Facial Plastic and Reconstructive Surgery Dept. of Otolaryngology/Head and Neck Surgery [facility] [place] tel fax email [email or web address] documented in this encounte r Plan [...]
--- OUTSIDE RECORDS SUMMARY | ~2019-10-19 | XMS | Encounter Summary ---
Demographics + + + | Address | [address] | | | [place] [address] | + + + | Home Phone [...] + | Poncho Oquendo | ECON | [address] | | | | | [place] | | | | | [address] | | + + + + + | Marta Upton | ECON | [place] | | | | | [address] | | + + + + + Care Team Providers + +------+ + | Care Extruder Operator Horizontal Name | Role | Phone | + [...] | (HCC) | [place] | [place] [address] | | | | | Procedures | [address] | Phone: | | | | | [place] | [place], | [phone] | | | | | [place] | [place] [address] | Fax: | | | | | HCL | Phone: | [phone] | | | | | INJECTION, 1 | [phone] | | | | | | MG LA | Fax: | | | | | | DEXAMETHASON | [phone] | | | | | | E SODIUM | | | | | | | PHOS, 1 MG | | | | | | | LA | | | | | | | DIPHENHYDRAM | | | | | | | INE HCL | | | | | | | INJECTIO, 50 | | | | | | | MG LA | | | | | | | FOSAPREPITAN | | | | | | | T INJECTION, | | | | | | | 1 MG LA | | | | | | | EPOETIN | | | | | | | JJ, | | | | | | | NON-ESRD, | | | | | | | 1000 UNITS | | | | | | | LA CISPLATIN | | | | | | | 10 MG | | | | | | | INJECTION | | | | | | | LA | | | | | | | GEMCITABINE | | | | | | | HCL | | | | | | | INJECTION, | | | | | | | 200 MG LA | | | | | | | LORAZEPAM | | | | | | | INJECTION, 2 | | | | | | | MG LA | | | | | | | METHYLPREDNI | | | | | | | SOLONE | | | | | | | INJECTION, | | | | | | | 125 MG LA | | | | | | | NORMAL | | | | | | | SALINE | | | | | | | SOLUTION | | | | | | | INFUS, 500 | | | | | | | ML LA | | | | | | | NORMAL | | | | | | | SALINE | | | | | | | SOLUTION | | | | | | | INFUS, 250 | | | | | | | ML LA | | | | | | | STERILE | | | | | | | WATER/SALINE | | | | | | | , 10 ML LA | | | | | | | CHEMOTHER, | | | | | | | IV PUSH,EA | | | | | | | ADD DRUG LA | | | | | | | CHEMOTHER, | | | | | | | IV INFUSION, | | | | | | | 1 HR LA | | | | | | | CHEMOTHER, | | | | | | | IV INFUSION, | | | | | | | EA HR LA | | | | | | | CHEMOTHER,NO | | | | | | | N-HORMONE | | | | | | | ANTI-NEOPL, | | | | | | | SUB-Q/IM LA | | | | | | | [...] + + | 11/22/ | Hospital | [facility] | Vladimir Robles, | Gallbladder cancer, | | 2015 | Encounter | MED CTR CHEMO | MD [address] | carcinoma (HCC) | | | | INFUSION [address] [place], | (Primary Dx) | | | | [place], | [place] [address] | | | | | [place] [address] | [phone] | | | | | [phone] | | | +--------+ + + + [...] | | | | | [place] [address] | | | | | | [phone] | | | | | | | [...] | | | | | | [place] [address] | | | | + + + [...] [address] | [place] [address] | [phone] | + + + + + [place] [...] [address] | [place] | [phone] | | [facility] | | [address] | | | - LABORATORY | | [...] + | [facility] | [address] | [place] | [phone] | | [facility] | | [address] | | | - LABORATORY | | [...] mL/min/1.73m2 | [facility] | | | Turkish | RATE,ESTIMATED | | MEDICAL | | | | mL/min/1.84h9Iayr than | | CENTER - | | [...] [address] | [place] | [phone] | | [facility] | | [address] | | | - LABORATORY | | [...] [address] | [place] | [phone] | | [facility] | | [address] | | | - LABORATORY | | [...]
--- OUTSIDE RECORDS SUMMARY | ~2019-10-19 | XMS | Encounter Summary ---
Demographics + + + | Address | [address] | | | [place] [address] | + + + | Home Phone [...] | Author | [facility] | | | and [place] | + + + | Organization | [facility] | | | and [place] | + + + | Address | Unknown | + + + | Phone | Unavailable | + + + Support + + + + + | Name | Relationship | Address | Phone | + + + + + | Poncoh Oquendo | ECON | [address] | | | | | [place] | | | | | [address] | | + + + + + | Marta Upton | ECON | [place] | | | | | [address] | | + + + + + Care Team Providers + +------+ + | Care Tier Over Name | Role | Phone | + [...] + + | 08/27/ | Refill | [facility] | Vladimir Robles, | Medication Refill | | 2019 | | MED CTR MEDICAL | [address] | | | | | ONCOLOGY CLINIC 401 | [facility], | | | | | [address] [place] | [place] [address] | | | | | [place] [address] | [phone] | | | | | [phone] | | | +--------+--------+ + + + [...] [address] | | | | | | [place] [address] | | | | | | [phone] | | | | | | | | +--------+---------+ + + + documented as of this encounter Visit Diagnoses Not on filedocumented in this encounter"
--- OUTSIDE RECORDS SUMMARY | ~2019-10-19 | XMS | Encounter Summary ---
Demographics + + + | Address | [address] | | | [place] [address] | + + + | Home Phone [...] Author | [facility] | | | and [place] | + + + | Organization | [facility] | | | and [place] | + + + | Address | Unknown | + + + | Phone | Unavailable | + + + Support + + + + + | Name | Relationship | Address | Phone | + + + + + | Poncho Oquendo | ECON | [address] | | | | | [place] | | | | | [address] | | + + + + + | Marta Upton | ECON | [place] | | | | | [address] | | + + + + + Care Team Providers + +------+ + | Care Glue Drier Operator Name | Role | Phone | [...] [place] | | | | | | [address] | | | | | | [phone] | | | +--------+ + + + [...] [address] | | | | | | [place] [address] | | | | | | [phone] | | | | | | | [...] + | [facility] | [address] | [place], [place] | [phone] | | [facility] | | [address] | | | - LABORATORY | | | | + + + + + | [facility] | [address] | [place], [place] | | | [facility] | | [id number] [place] [address] | | | - LABORATORY | | [...] | [address] [address] | | | | [facility] | | MEDICAL | | | [...] + | [facility] | [address] | [place], [place] | [phone] | | [facility] | | [address] | | | - LABORATORY | | | | + + + + + | [facility] | [address] | [place], [place] | | | [facility] | | [address] | | | - [...] | | (formerly Mahad) Advia | | [facility] | | | | CICCWORLDaur immunoassay | | MEDICAL | | | [...] | | | | [address], [place], [place] | | | | | | [address] CLIA: | | | | | | [id number] | | | | + + + + + + + + | Specimen | + + | | + + + + + + + | Performing | Address | City/State/Zipcode | Phone Number | | Organization | | | | + + + + + | [facility] | [address] | [place], [place] | [phone] | | [facility] | | [address] | | | - LABORATORY | | | | + + + + + | [facility] | [address] | [place], [place] | | | [facility] | | [address], [facility] | | | - [...] + | [facility] | [address] | [place], [place] | [phone] | | [facility] | | [address] | | | - LABORATORY | | | | + + + + + | [facility] | [address] | [place], [place] | | | [facility] | | [id number] [place] [address] | | | - LABORATORY | | [...] + | [facility] | [address] | [place] | [phone] | | [facility] | | [address] | | | - LABORATORY | | | | + + + + + | [facility] | [address] | [place] | | | [facility] | | [address] [place] [address] | | | - LABORATORY | | | | + + + + + documented in this encounter Visit Diagnoses Not on filedocumented in this encounter"
--- OUTSIDE RECORDS SUMMARY | ~2019-10-19 | XMS | Encounter Summary ---
Demographics + + + | Address | [address] | | | [place] [address] | + + + | Home Phone [...] Author | [facility] | | | and [place] | + + + | Organization | [facility] | | | and [place] | + + + | Address | Unknown | + + + | Phone | Unavailable | + + + Support + + + + + | Name | Relationship | Address | Phone | + + + + + | Poncho Oquendo | ECON | [address] | | | | | [place] | | | | | [address] | | + + + + + | Marta Upton | ECON | [place] | | | | | [address] | | + + + + + Care Team Providers + +------+ + | Care Tar Heel Name | Role | Phone | + [...] SR | | | | | BOX [facility] | | | | | | [place], [place] | | | | | | [address] | | | | | | [phone] | | | +--------+ + + + [...] [address] | | | | | | [place] [address] | | | | | | [phone] | | | | | | | [...]
--- OUTSIDE RECORDS SUMMARY | ~2019-10-19 | XMS | Encounter Summary ---
Demographics + + + | Address | [address] | | | [place] [address] | + + + | Home Phone [...] Providers + +------+ + | Care Aircraft Delivery Checker Name | Role | Phone | [...] Visit | [facility] at | A, PATTERNMAKER PLASTER [address] | (Primary Dx) | | | | [facility] 4th Floor [address] | | | | | [address] | [place], [place] | | | | | Mailcode: CH4S | [address] | | | | | [facility] | | | | | | and Healing, | | | | | | Building 1,4th Floor | | | | | | [place], [place] | | | | | | [address] | | | | | | [phone] | | | +--------+---------+ + + + [...]
--- OUTSIDE RECORDS SUMMARY | ~2019-10-19 | XMS | Encounter Summary ---
Demographics + + + | Address | [address] | | | [place] [address] | + + + | Home Phone [...] + | Poncho Oquendo | ECON | [address] | | | | | [place] | | | | | [address] | | + + + + + | Marta Upton | ECON | [place] | | | | | [address] | | + + + + + Care Team Providers + +------+ + | Care Electrical And Electronic Assembler Name | Role | Phone | + +------+ + PCP | Unavailable | + +------+ + Encounter Details +--------+ + + + + | Date | Type | Department | Care Team | Description | +--------+ + + + + | 10/19/ | Hospital | [facility] | | | | 2012 - | Encounter | MED CTR CANCER | | | | | | CENTER [address] | | | | 11/13/ | | [place], [place] | | | | 2012 | | [address] | | | | | | [phone] | | | +--------+ + + + [...] | | | | | [place] [address] | | | | | | [phone] | | | | | | | [...] + | [facility] | [address] | [place], [place] | [phone] | | [facility] | | [address] | | | - LABORATORY | | | | + + + + + | [facility] | [address] | [place], [place] | | | [facility] | | [address] | | [...] | (formerly Mahad) Advia | | [facility] | | | | Centaur [...] Age[place] | | | | | | [address] CLIA: | | | | | | [id number] | | | | + + + + + + + + | Specimen | + + | | + + + + + + + | Performing | Address | City/State/Zipcode | Phone Number | | Organization | | | | + + + + + | [facility] | [address] | [place], [place] | [phone] | | [facility] | | [address] | | | - LABORATORY | | | | + + + + + | [facility] | [address] | [place], [place] | | | [facility] | | [id number] [place] [address] | | | - LABORATORY | | | | + + + + + Comprehensive Metabolic Panel (10/19/2012 8:04 AM PDT) + + + + + + | Component | Value | Ref Range | Performed | Pathologist | | | | | At | Signature | + + + + + + | Glucose | 109 | 70 - 109 mg/dL | [facility] [...] | 11.5 | 6.0 - 17.0 | [facility] | [...] [address] | [place] | [phone] | | [facility] | | [address] | | | - LABORATORY | | | | + + + + + | [facility] | [address] | [place], [place] | | | [facility] | | [address] | | | - [...] 174 | 91 - 180 IU/L | LETICIAE [...] [address] | [place] | [phone] | | [facility] | | [address] | | | - LABORATORY | | | | + + + + + | [facility] | [address] | [place] | | | [facility] | | [address] [place] [address] | | | - LABORATORY | | | | + + + + + documented in this encounter Visit Diagnoses Not on filedocumented in this encounter"
--- OUTSIDE RECORDS SUMMARY | ~2019-10-19 | XMS | Encounter Summary ---
Demographics + + + | Address | [address] | | | [place] [address] | + + + | Home Phone [...] + | Poncho Oquendo | ECON | [address] | | | | | [place] | | | | | [address] | | + + + + + | Marta Upton | ECON | [place] | | | | | [address] | | + + + + + Care Team Providers + +------+ + | Care Marriage Counselor Name | Role | Phone | [...] + | 07/03/ | Telephone | [facility] | Reinaldo, | Medication Question | | 2018 | | MED [facility] MEDICAL | Epifanio Soler MD 7056 | | | | | ONCOLOGY CLINIC 401 | [facility] | | | | | [address] | [address] [place], [place] | | | | | [place] [address] | [address] | | | | | [phone] | | | +--------+ + + + [...] 9:34 AM PDTTask completed. [facility]ax [facility]. Yamini GARNICA at [facility] notified. Electronically signed by: Epifanio Najera MD 07/03/2018 9:34 elephone Noble Pena - 07/03/2018 8:13 AM PDTPt called, she has been getting shots post chemo through the mail, but it didn't come, she said that Dr. Najera said she could get it @ [facility], but that an order would need to be sent to the pharmacy and that she should call first thing Tuesday morning. Asks for call if this can be done. She will be checking with hayley to see why this ship ment did not arrive. [phone] Thank you documented in this encou nter Plan of Treatment +--------+---------+ + + + | Date | Type | Specialty | Care Team | Description | +--------+---------+ + + + | 10/29/ | Office | Urology | Pedro Green, | | | 2019 | Visit | | DO [address] | | | | | | [place] [address] | | | | | | [phone] | | | | | | | | +--------+---------+ + + + documented as of this encounter Visit Diagnoses Not on filedocumented in this encounter"
--- OUTSIDE RECORDS SUMMARY | ~2019-10-19 | XMS | Encounter Summary ---
Demographics + + + | Address | [address] | | | [place] [address] | + + + | Home Phone [...] Author | [facility] | | | and [place] | + + + | Organization | [facility] | | | and [place] | + + + | Address | Unknown | + + + | Phone | Unavailable | + + + Support + + + + + | Name | Relationship | Address | Phone | + + + + + | Poncho Oquendo | ECON | [address] | | | | | [place] | | | | | [address] | | + + + + + | Marta Upton | ECON | [place] | | | | | [address] | | + + + + + Care Team Providers + +------+ + | Care Rd Manager Name | Role | Phone | [...] | | | | | mass | Donovan, EDM OPERATOR | | | | | | Procedures | [address] | | | | | | CT Chest | [place] | | | | | | Abdomen | [place], [place] | | | | | | Pelvis w | [address] | | | | | | Contrast CT | Phone: | | | | | | Abdomen | [phone] | | | | | | Pelvis w | Fax: | | | | | | Contrast | [phone] | | +--------+--------+ + + + + Encounter Details +--------+ + + + + | Date | Type | Department | Care Team | Description | +--------+ + + + + | 05/22/ | Hospital | [facility] | Latoya Holt | Ovarian mass | | 2015 | Encounter | MED CTR CT [address] | Donovan, EDM OPERATOR [address] | | | | | [place], | [address] [place] | | | | | [place] [address] | [place] [address] | | | | | [phone] | [phone] | | | | | | | [...] [address] | | | | | | [place] [address] | | | | | | [phone] | | | | | | | [...] | | | administration of 100 mL [id number] contrast. Multiplanar | | | reformatted images [...] intravenous administration of 100 mL | | [id number] contrast. Multiplanar reformatted images created.RADIATION DOSE: DLP [...]
--- OUTSIDE RECORDS SUMMARY | ~2019-10-19 | XMS | Encounter Summary ---
Demographics + + + | Address | [address] | | | [place] [address] | + + + | Home Phone [...] + | Poncho Oquendo | ECON | [address] | | | | | [place] | | | | | [address] | | + + + + + | Marta Upton | ECON | [place] | | | | | [address] | | + + + + + Care Team Providers + +------+ + | Care Poultry Farmworker Name | Role | Phone | + +------+ + PCP | Unavailable | + +------+ + Encounter Details +--------+ + + + + | Date | Type | Department | Care Team | Description | +--------+ + + + + | 05/05/ | Hospital | [facility] | Hakan Cherry | | | 2011 | Encounter | MED CTR XRAY [address] | [address] | | | | | [place] | [place], [place] | | | | | [place] [address] | [address] | | | | | [phone] | | | +--------+ + + + [...] [address] | | | | | | [place] [address] | | | | | | [phone] | | | | | | | [...] Performed At | + + + | [facility] Diagnostic Imaging Department | [place] | | [address], [facility] | [facility] | | PROCEDURE NOTE LUMBAR FACET | [...] Transcribed Date/Time: 05/06/2011 17:17 | | | Sign Wirer: <Electronically Signed by Hakan Field | | | MD Dilip> 05/14/11 1336 | | + + + + + | Procedure Note | + + | Edmundo, Rad Conversion - 03/23/2013 4:58 PM [facility] | | Diagnostic Imaging Department [address] [place] [address] | | PROCEDURE NOTE LUMBAR FACET INJECTION, [...] 17:08 | |Transcribed Date/Time: 05/06/2011 17:17 | |Sign Wirer: | |<Electronically Signed by Hakan Cherry MD> [...]
--- OUTSIDE RECORDS SUMMARY | ~2019-10-19 | XMS | Encounter Summary ---
Demographics + + + | Address | [address] | | | [place] [address] | + + + | Home Phone [...] + +------+ + | Care Field Crop Farmer Name | Role | Phone | [...] + + | 06/28/ | Refill | [facility] | Zully Soto RN | Refill Request | | 2014 | | [facility] | [place], [place] | | | | | [address] | [address] | | | | | [address] | | | | | | Pavilion, [facility] | | | | | | [place], [place] | | | | | | [address] | | | | | | [phone] | | | +--------+--------+ + + + [...]
--- OUTSIDE RECORDS SUMMARY | ~2019-10-19 | XMS | Encounter Summary ---
Demographics + + + | Address | [address] | | | [place] [address] | + + + | Home Phone [...] + | Author | [facility] | | | and [place] | + + + | Organization | [facility] | | | and [place] | + + + | Address | Unknown | + + + | Phone | Unavailable | + + + Support + + + + + | Name | Relationship | Address | Phone | + + + + + | Poncho Oquendo | ECON | [address] | | | | | [place] | | | | | [address] | | + + + + + | Marta Upton | ECON | [place] | | | | | [address] | | + + + + + Care Team Providers + +------+ + | Care Sequins Winder Name | Role | Phone | + [...] | | | ONCOLOGY CLINIC 401 | [facility] | | | | | [address] | [address] [place], [place] | | | | | [place] [address] | [address] | | | | | [phone] | | | +--------+ + + + [...] [address] | | | | | | [place] [address] | | | | | | [phone] | | | | | | | | +--------+---------+ + + + documented as of this encounter Visit Diagnoses + + | Diagnosis | + + | Gallbladder cancer, 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
--- OUTSIDE RECORDS SUMMARY | ~2019-10-19 | XMS | Encounter Summary ---
Demographics + + + | Address | [address] | | | [place] [address] | + + + | Home Phone [...] + | Poncho Oquendo | ECON | [address] | | | | | [place] | | | | | [address] | | + + + + + | Marta Upton | ECON | [place] | | | | | [address] | | + + + + + Care Team Providers + +------+ + | Care Director Of Bands Name | Role | Phone | + [...] | | Personal | Reinaldo, | [place] | | | | | 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, | [place], | | | | | 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[address] | [place] [address] | | | | | neoplasm of | [place] | Phone: | | | | | other site | [address] | [phone] | | | | | in | [place], | Fax: | | | | | gastrointest | [place] [address] | [phone] | | | | | inal tract | Phone: | | | | | | Procedures | [phone] | | | | | | CT Abdomen | Fax: | | | | | | Pelvis w | [phone] | | | | | | Contrast [...] | | Personal | Reinaldo, | [place] | | | | | 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, | [place], | | | | | 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 [address] | [place] [address] | | | | | neoplasm of | [place] | Phone: | | | | | other site | [address] | [phone] | | | | | in | [place], | Fax: | | | | | gastrointest | [place] [address] | [phone] | | | | | inal tract | Phone: | | | | | | Procedures | [phone] | | | | | | CT Abdomen | Fax: | | | | | | Pelvis w | [phone] | | | | | | Contrast | | | +--------+--------+ + + + + Encounter Details +--------+ + + + + | Date | Type | Department | Care Team | Description | +--------+ + + + + | 09/16/ | Hospital | [facility] | Reinaldo, | Personal history of | | 2015 | Encounter | MED CTR CT [address] | Epifanio Soler MD [address] | malignant neoplasm | | | | [place], | [address] [place] | of other site in | | | | [place] [address] | [address] [place], [place] | gastrointestinal | | | | [phone] | [address] | tract | | | | | [...] | | | | | [place] [address] | | | | | | [phone] | | | | | | | [...]
--- OUTSIDE RECORDS SUMMARY | ~2019-10-19 | XMS | Encounter Summary ---
Demographics + + + | Address | [address] | | | [place] [address] | + + + | Home Phone [...] + | Poncho Oquendo | ECON | [address] | | | | | [place] | | | | | [address] | | + + + + + | Marta Upton | ECON | [place] | | | | | [address] | | + + + + + Care Team Providers + +------+ + | Care Last Repairer Helper Name | Role | Phone | + +------+ + | Valeriy Carmona DO | TAWNYA | | + +------+ + Encounter Details +--------+ + + + + | Date | Type | Department | Care Team | Description | +--------+ + + + + | 08/27/ | Hospital | [facility] | Valeriy Carmona, | Breast nodule | | 2016 | Encounter | MED CTR ULTRASOUND | DO [address] | | | | | [address] | [place] [address] | | | | | [place] | [phone] | | | | | [id number] | | | | | | [phone] | Vee Rebolledo | | | | | | Kati, Technologist | | | | | | [place] | | | | | | [phone] | | +--------+ + + + + [...] [facility]AST[place] | | | | | | [place] [address] | | | | | | [phone] | | | | | | | [...]
--- OUTSIDE RECORDS SUMMARY | ~2019-10-19 | XMS | Encounter Summary ---
Demographics + + + | Address | [address] | | | [place] [address] | + + + | Home Phone [...] + | Author | [facility] | | | and [place] | + + + | Organization | [facility] | | | and [place] | + + + | Address | Unknown | + + + | Phone | Unavailable | + + + Support + + + + + | Name | Relationship | Address | Phone | + + + + + | Poncho Oquendo | ECON | [address] | | | | | [place] | | | | | [address] | | + + + + + | Marta Upton | ECON | [place] | | | | | [address] | | + + + + + Care Team Providers + +------+ + | Care Striper Spray Gun Name | Role | Phone | + +------+ + | Valeriy Carmona DO | TAWNYA | | + +------+ + Encounter Details +--------+ + + + + | Date | Type | Department | Care Team | Description | +--------+ + + + + | 07/03/ | Orders Only | [facility] | Reinaldo, | Cholangiocarcinoma | | 2015 | | [facility] | Epifanio Soler MD 2104 | (HCC) (Primary Dx) | | | | ONCOLOGY CLINIC 401 | [facility] | | | | | [address] | [address] [place], [place] | | | | | [place] [address] | [address] | | | | | [phone] | | | +--------+ + + + [...] [address] | | | | | | [place] [address] | | | | | | [phone] | | | | | | | | +--------+---------+ + + + documented as of this encounter Visit Diagnoses + + | Diagnosis | + + | 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
--- OUTSIDE RECORDS SUMMARY | ~2019-10-19 | XMS | Encounter Summary ---
Demographics + + + | Address | [address] | | | [place] [address] | + + + | Home Phone [...] + | Poncho Oquendo | ECON | [address] | | | | | [place] | | | | | [address] | | + + + + + | Marta Upton | ECON | [place] | | | | | [address] | | + + + + + Care Team Providers + +------+ + | Care Rehab Director Occupational Therapist Name | Role | Phone | [...] 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, | [place]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 | MD [address] | [place], | | | | | (HCC) | [address] | [place] [address] | | | | | Procedures | [address] | Phone: | | | | | FL NORMAL | OBED, | [phone] | | | | | SALINE | [place] [address] | Fax: | | | | | SOLUTION | Phone: | [phone] | | | | | INFUS, 500 | [phone] | | | | | | ML FL | Fax: | | | | | | NORMAL | [phone] | | | | | | SALINE | | | | | | | SOLUTION | | | | | | | INFUS, 250 | | | | | | | ML FL | | | | | | | STERILE | | | | | | | WATER/SALINE | | | | | | | , 10 ML FL | | | | | | | CHEMOTHER, | | | | | | | IV PUSH,EA | | | | | | | ADD DRUG FL | | | | | | | CHEMOTHER, | | | | | | | IV INFUSION, | | | | | | | 1 HR FL | | | | | | | CHEMOTHER, | | | | | | | IV INFUSION, | | | | | | | EA HR FL | | | | | | | CHEMOTHER,NO | | | | | | | N-HORMONE | | | | | | | ANTI-NEOPL, | | | | | | | SUB-Q/IM FL | | | | | | | CHEMOTHER | | | | | | | HORMON | | | | | | | ANTINEOPL | | | | | | | SUB-Q/IM FL | | | | | | | INJECTION, | | | | | | | FAMOTIDINE, | | | | | | | 20 MG FL | | | | | | | DIPHENHYDRAM | | | | | | | INE HCL | | | | | | | INJECTIO, 50 | | | | | | | MG FL | | | | | | | INJ., | | | | | | | APREPITANT, | | | | | | | 1 MG FL | | | | | | | ORAL | | | | | | | DEXAMETHASON | | | | | | | E, .25 MG | | | | | | | FL LORAZEPAM | | | | | | | INJECTION, | | | | | | | 2 MG FL | | | | | | | HYDROMORPHON | | | | | | | E 250 MG FL | | | | | | | CARBOPLATIN | | | | | | | INJECTION, | | | | | | | 50 MG FL IN | | | | | | | GEMCITABINE | | | | | | | HCL NOS | | | | | | | 200MG FL | | | | | | | ADRENALIN | | | | | | | EPINEPHRINE | | | | | | | INJECT, .1 | | | | | | | MG FL | | | | | | | METHYLPREDNI | | | | | | | SOLONE | | | | | | | INJECTION, | | | | | | | 125 MG FL | | | | | | | ALBUTEROL | | | | | | | COMP UNIT, 1 | | | | | | | MG FL | | | | | | [...] + + | 07/04/ | Hospital | [facility] | Reinaldo, | Gallbladder cancer, | | 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 | Epifanio Soler MD 5611 | carcinoma (HCC) | | | | INFUSION [address] | [facility] | (Primary Dx) | | | | [place], | [address] [place], [place] | | | | | [place] [address] | [address] | | | | | [phone] | | | +--------+ + + + [...] | | | | | | [place] [address] | | | | | | [phone] | | | | | | | [...] | | | over 30 Minutes, ONCE, [facility] | | | | | [...] | | | | | Care, Starting [facility] 07/05/19 at | | | | | [...] | | | | | Pain, Starting [facility] 07/05/19 at | | | | | [...] | | | | | Minutes, ONCE, [facility] 07/05/19 at | | | | | | | 0945, For 1 dose | | | | | | + +---------+ +------+--------+---+ +---+---+ | | | +---+---+ documented in this encounter"
--- OUTSIDE RECORDS SUMMARY | ~2019-10-19 | XMS | Encounter Summary ---
Demographics + + + | Address | [address] | | | [place] [address] | + + + | Home Phone [...] Team Providers + +------+ + | Care Sessions Clerk Name | Role | Phone | + +------+ + PCP | Unavailable | + +------+ + Encounter Details +--------+ + + + + | Date | Type | Department | Care Team | Description | +--------+ + + + + | 03/22/ | Results | | Other, Faculty | | | 2003 | Only | | [phone] | | +--------+ + + + + [...] | | | | | please call [phone] | | | | | | [phone].Rendering | | | | | | Diagnostician: [...] + + | Ordered by Yaw Marcelo WET WASH ASSEMBLER | | + + + + + + + + | Performing | Address | City/State/Zipcode | Phone Number | | Organization | | | | + + + + + | [facility] | [employer] | [place] [address] | | | [facility] | [address] | | | | [address] | | | + + + + + documented in this encounter Visit Diagnoses Not on filedocumented in this encounter"
--- OUTSIDE RECORDS SUMMARY | ~2019-10-19 | XMS | Encounter Summary ---
Demographics + + + | Address | [address] | | | [place] [address] | + + + | Home Phone [...] + | Poncho Oquendo | ECON | [address] | | | | | [place] | | | | | [address] | | + + + + + | Marta Upton | ECON | [place] | | | | | [address] | | + + + + + Care Team Providers + +------+ + | Care Environmental Aide Name | Role | Phone | [...] [facility] | Epifanio Soler MD 2304 | bladder (HCC) | | | | ONCOLOGY CLINIC 401 | [facility] | (Primary Dx) | | | | [address] | [address] [place], [place] | | | | | [place] [address] | [address] | | | | | [phone] | | | +--------+ + + + [...] | | | | | [place] [address] | | | | | | [phone] | | | | | | | | +--------+---------+ + + + documented as of this encounter Visit Diagnoses + + | Diagnosis | + + | 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
--- OUTSIDE RECORDS SUMMARY | ~2019-10-19 | XMS | Encounter Summary ---
Demographics + + + | Address | [address] | | | [place] [address] | + + + | Home Phone [...] Team Providers + +------+ + | Care Crowd Controller Name | Role | Phone | + +------+ + | Tomasa Wagner | PCP | | + +------+ + Encounter Details +--------+ + + + + | Date | Type | Department | Care Team | Description | +--------+ + + + + | 08/22/ | Telephone | [facility] | Tai Stanton, | | | 2012 | | Center at [facility] [address] | [address] [facility] | | | | | [facility] | [facility] | | | | | for Health and | [place], [place] | | | | | [facility] [place] [address] | [address] | | | | | [place], [place] | [phone] | | | | | [address] | | | | | | [phone] | | | +--------+ + + + [...] Pharmacy Preferences: [address] [place] [address] documented in this encou nter Plan of Treatment Not on filedocumented as of this encounter Visit Diagnoses Not on filedocumented in this encounter"
--- OUTSIDE RECORDS SUMMARY | ~2019-10-19 | XMS | Encounter Summary ---
Demographics + + + | Address | [address] | | | [place] [address] | + + + | Home Phone [...] Team Providers + +------+ + | Care Verification Specialist Name | Role | Phone | + +------+ + PCP | Unavailable | + +------+ + Encounter Details +--------+ + + + + | Date | Type | Department | Care Team | Description | +--------+ + + + + | 04/11/ | Abstract | [facility] | Tai Stanton, | | | 2012 | | [place] [address] [address] | [address] [facility] | | | | | Erickson Faria johanne [place] | [facility] | | | | | for Health and | [place], [place] | | | | | [facility] [address] | [address] | | | | | [place], [place] | [phone] | | | | | [address] | | | | | | [phone] | | | +--------+ + + + [...]
--- OUTSIDE RECORDS SUMMARY | ~2019-10-19 | XMS | Encounter Summary ---
Demographics + + + | Address | [address] | | | [place] [address] | + + + | Home Phone [...] + | Poncho Oquendo | ECON | [address] | | | | | [place] | | | | | [address] | | + + + + + | Marta Upton | ECON | [place] | | | | | [address] | | + + + + + Care Team Providers + +------+ + | Care Measurement Technician Name | Role | Phone | + +------+ + | No, Physician | PCP | Unavailable | + +------+ + Encounter Details +--------+ + + + + | Date | Type | Department | Care Team | Description | +--------+ + + + + | 04/26/ | Anesthesia | [facility] | [place] | | | 2019 | Event | REGIONAL SURGERY | CAM [address] | | | | | CENTER INTRA OP | [place] | | | | | [address] | [place] [address] | | | | | [place], [place] | [phone] | | | | | [address] | | | | | | [phone] | | | +--------+ + + + [...] 1053 by | | eral | Forearm; eoym-hjq-zmohjs catheter | Jamila Aguila, | Cindy Casarez [...] EVALUATION Aura Upton 58 y.o. female 1960 [id number] Procedure(s) CYSTOSCOPY URETERAL STENT REMOVAL/REPLACEMENT (Left Ureter) [...] EVALUATION Aura Upton 58 y.o. female 1960 [id number] Procedure(s): CYSTOSCOPY URETERAL STENT REMOVAL/REPLACEMENT (Left ) [...] NOTE Aura Upton 58 y.o. female 1960 [id number] CYSTOSCOPY URETERAL STENT REMOVAL/REPLACEMENT (Left ) HANDOFF [...] [address] | | | | | | [place] [address] | | | | | | [phone] | | | | | | | [...]
--- OUTSIDE RECORDS SUMMARY | ~2019-10-19 | XMS | Encounter Summary ---
Demographics + + + | Address | [address] | | | [place] [address] | + + + | Home Phone [...] + | Poncho Oquendo | ECON | [address] | | | | | [place] | | | | | [address] | | + + + + + | Marta Upton | ECON | [place] | | | | | [address] | | + + + + + Care Team Providers + +------+ + | Care Order Checker Name | Role | Phone | [...] + + | 09/16/ | Telephone | [facility] | Pedro Green, | Appointment | | 2019 | | UROLOGY [address] | DO [address] | (Reschedule 09/17 | | | | [address] | [place] [address] | f/u) | | | | [place], [place] | [phone] | | | | | [address] | | | | | | [phone] | | | +--------+ + + + [...] Additional Call Details: Please call back at: [phone] elephone Encounter - Nikky Bond - 09/17/2019 [...] transfer the call to a jaclyn maradiaga laborer beam house was caller made aware that if at [...] [address] | | | | | | [place] [address] | | | | | | [phone] | | | | | | | | +--------+---------+ + + + documented as of this encounter Visit Diagnoses Not on filedocumented in this encounter"
--- OUTSIDE RECORDS SUMMARY | ~2019-10-19 | XMS | Encounter Summary ---
Demographics + + + | Address | [address] | | | [place] [address] | + + + | Home Phone [...] Team Providers + +------+ + | Care Revenue Officer Name | Role | Phone | [...] & | Diagnoses | Dege[place], | [facility] | | | | Gynecology | Pelvic mass | MD Miguel | [address] | | | | | Procedures | [address] | Marg[address] | | | | | REQUEST TO | Dana Agosto | [place] | | | | | SURGERY | [address] | Alex[address], [address]th | | | | | CHEESE PROCESSOR | [place], [place] | floor | | | | | [place] | [address] | [place], [place] | | | | | EXPLORATORY | Phone: | [address] | | | | | OF ABDOMEN | [phone] | Phone: | | | | | [place] RESEC | Fax: | [phone] | | | | | OVAR | [phone] | Fax: | | | | | MALIG+JAKE+PE | | [phone] | | | | | LV NODES [...] & | Diagnoses | [facility] | [facility] | | | | Gynecology | Complex | Epic Dept | [address] | | | | | Cystic Mass, | | [address] | | | | | elevated | | [place] | | | | | [address] per | | Pavilion, 7th | | | | | appt notes | | floor | | | | | | | [place], [place] | | | | | | | [address] | | | | | | | Phone: | | | | | | | [phone] | | | | | | | Fax: | | | | | | | [phone] | +--------+--------+ + + + + Encounter Details +--------+---------+ + + + | Date | Type | Department | Care Team | Description | +--------+---------+ + + + | 05/28/ | Office | [facility] | Miguel Seymour, | Preoperative testing | | 2015 | Visit | [facility] | [address] | (Primary Dx); | | | | [address] | [address] | Pelvic mass | | | | [address] | [place], [place] | | | | | [place], [address]th floor | [address] | | | | | [place], [place] | [phone] | | | | | [address] | | | | | | [phone] | | | +--------+---------+ + + + [...] be diff erent from the original. [facility] RETURN VISIT 05/28/2014 Referring provider: Valeriy [...] Obstetrics and Gynecology documented in this encounter Procedure Notes Other, Faculty - 05/31/2014 12:17 PM PDTAssociated Order(s): RADIOLOGY documented in this encounter Miscellaneous Notes Scan - Other, Faculty - 05/29/2014 3:25 PM PDTElectronically signed by Faculty Other at 3:25 PM PDTScan - Other, Faculty - 05/29/2014 3:24 PM PDT documented in this encounter Plan [...] | + + + + + | [facility] | [address] | [place] [address] | | | SERVICES, CORE | PARK [...] | + + + + + | [facility] | [address] | [place] [address] | | | SERVICES, CORE | NEAL [...] | + + + + + | [facility] | [address] | [place] [address] | | | SERVICES, CORE | NEAL [...]
--- OUTSIDE RECORDS SUMMARY | ~2019-10-19 | XMS | Encounter Summary ---
Demographics + + + | Address | [address] | | | [place] [address] | + + + | Home Phone [...] | Author | [facility] | | | and [place] | + + + | Organization | [facility] | | | and [place] | + + + | Address | Unknown | + + + | Phone | Unavailable | + + + Support + + + + + | Name | Relationship | Address | Phone | + + + + + | Poncho Oquendo | ECON | [address] | | | | | [place] | | | | | [address] | | + + + + + | Marta Upton | ECON | [place] | | | | | [address] | | + + + + + Care Team Providers + +------+ + | Care Baked And Graphite Inspector Name | Role | Phone | + +------+ + | Valeriy Carmona DO | TAWNYA | | + +------+ + Encounter Details +--------+ + + + + | Date | Type | Department | Care Team | Description | +--------+ + + + + | 09/05/ | Orders Only | [facility] | Provider, | | | 2019 | | SYSTEM GENERIC OP | MD [address] | | | | | CONVERSION [address] | [place]. | | | | | [address] [place], [place] | [place] [address] | | | | | [address] | | | | | | [phone] | | | +--------+ + + + [...] [address] | | | | | | [place] [address] | | | | | | [phone] | | | | | | | | +--------+---------+ + + + documented as of this encounter Visit Diagnoses Not on filedocumented in this encounter"
--- OUTSIDE RECORDS SUMMARY | ~2019-10-19 | XMS | Encounter Summary ---
Demographics + + + | Address | [address] | | | [place] [address] | + + + | Home Phone [...] + | Poncho Oquendo | ECON | [address] | | | | | [place] | | | | | [address] | | + + + + + | Marta Upton | ECON | [place] | | | | | [address] | | + + + + + Care Team Providers + +------+ + | Care Gas Meter Installer Helper Name | Role | Phone | [...] MED CTR PROVIDER | Epifanio Soler MD 7157 | right (Primary Dx) | | | | ONCOLOGY [address] [facility] | | | | | [place] [address], | [address] [place], [place] | | | | | [place] [address] | [address] | | | | | [phone] | | | +--------+ + + + [...] | | | | | [place] [address] | | | | | | [phone] | | | | | | | | +--------+---------+ + + + documented as of this encounter Results US Breast Limited Right (03/05/2016 1:42 PM PST) + + | Specimen | + + | | + + + + + | Narrative | Performed At | + + + | US BREAST LIMITED RIGHT 03/05/2016 1:00 PM EXAM[facility] | [facility] | | [...] LIMITED RIGHT 03/05/2016 1:00 | | PMEXAM: [facility] RIGHT dated 03/05/2016 12:50 [...] LUPE Tomosynthesis Diagnostic Right (03/05/2016 1:08 PM [facility]) + + | Specimen | + + | | + + + + + | Narrative | Performed At | + + + | EXAM: [facility] RIGHT dated 03/05/2016 12:50 [...]
--- OUTSIDE RECORDS SUMMARY | ~2019-10-19 | XMS | Encounter Summary ---
Demographics + + + | Address | [address] | | | [place] [address] | + + + | Home Phone [...] + | Poncho Oquendo | ECON | [address] | | | | | [place] | | | | | [address] | | + + + + + | Marta Carlospadmaja | ECON | [place] | | | | | [address] | | + + + + + Care Team Providers + +------+ + | Care Mail Messenger Name | Role | Phone | + [...] | | renal and | [place], | [facility] | | | | | ureteral | [place] | [address] Phone: | | | | | calculous | [address] | [phone] | | | | | obstruction | Phone: | Fax: | | | | | | [phone] | [phone] | | | | | | Fax: | | | | | | | [phone] | | +--------+--------+ + + + + Encounter Details +--------+---------+ + + + | Date | Type | Department | Care Team | Description | +--------+---------+ + + + | 11/21/ | Office | [facility] | Pedro Green, | Cholangiocarcinoma | | 2019 | Visit | UROLOGY [address] | DO [address] | (HCC) (Primary Dx); | | | | [address] | [place] [address] | Obstruction of left | | | | [place], [place] | [phone] | ureter | | | | [address] | | | | | | [phone] | | | +--------+---------+ + + + [...] encounter Patient Instructions Patient Instructions Kalina Hughes, Asphalt Paving Superintendent - 11/21/2018 10:30 AM PDTPLAN IMAGING NEED TO BE DONE PRIOR TO APPOINTMENT OR YOUR APPOINTMENT WILL BE CANCELED AND CELESTE EDULED #01: Proceed with Surgery on 11/29. 4 Month Follow-up From Surgery 11/29 with Stent Exchange Options #02: Informed Consent was obtained. #03: Please call to register and schedule Per Admission appointment for [facility]. It is important to have a Per Admission Appointment to assure your safety duri anesthesia and surgery. Location: [facility] ([address] [place] [address]) Time: The day before surgery someone from the hospital will call you to give you your arriv al time. Be advised, they will call you in the late afternoon or early evening. Please do not contact our office to find out your time of arrival. IF YOU HAVE A BALANCE CLERK You MUST receive a cardiac clearance from your ammonia operator prior to surgery. A pre-admission (registration) appointment [...] IT OFF OR FAX IT TO US ([phone]) AT LEAST 2 WEEKS PRIOR TO SURGERY. MAKE SURE TO IN CLUDE TIME OFF NEEDED/WHEN YOU PLAN TO RETURN TO WORK. documented in this encounter Progress Notes Pedro Green DO - 11/21/2018 10:30 AM PDTFormatting of this note might be different fr om the original. [facility] Urology Primary Care Provider: No Physician [...] well. Her last excha nge was at [facility] during [...] - STENT; Surgeon: Pedro Green DO; Location: [facility] MAIN OR; Service: Urology; Laterality: [...] might be different fr om the original. [facility] Urology Primary Care Provider: No Physician [...] well. Her last excha nge was at [facility] during [...] - STENT; Surgeon: Pedro Green DO; Location: [facility] MA[facility] OR; Service: Urology; Laterality: [...] 10/29/ | Office | Urology | Pedro Green Alessandra, | | | 2019 | Visit | | DO [address] | | | | | | [place] [address] | | | | | | [phone] | | | | | | | | +--------+---------+ + + + documented as of this encounter Visit Diagnoses + + | Diagnosis | + + | Cholangiocarcinoma (HCC) - Primary Malignant neoplasm of intrahepatic bile ducts | + + | Obstruction of left ureter | + + documented in this encounter"
--- OUTSIDE RECORDS SUMMARY | ~2019-10-19 | XMS | Encounter Summary ---
Demographics + + + | Address | [address] | | | [place] [address] | + + + | Home Phone [...] | Poncho Omar Oquendo | ECON | [address] | | | | | [place] | | | | | [address] | | + + + + + | Marta Upton | ECON | [place] | | | | | [address] | | + + + + + Care Team Providers + +------+ + | Care Operations Staff Specialist Security Name | Role | Phone | + +------+ + | No, Physician | PCP | Unavailable | + +------+ + Reason for Visit + + + | Reason | Comments | + + + | Follow-up | | + + + Follow Up (Routine) +--------+--------+ + + + + | Status | Reason | Specialty | Diagnoses / | Referred By | Referred To | | | | | Procedures | Contact | Contact | +--------+--------+ + + + + | Closed | | Oncology | Diagnoses | No, | Travis, | | | | | Gallbladder | Physician p | Vladimir Nelson MD | | | | | cancer, | | [address] | | | | | carcinoma | | STREET | | | | | (HCC) [facility] | | [place], | | | | | LABS/PORT | | [place] [address] | | | | | AND 4 HR RX | | Phone: | | | | | Procedures | | [phone] | | | | | [place] OFFICE | | Fax: | | | | | OUTPATIENT | | [phone] | | | | | VISIT 25 | | | | | | | MINUTES [facility] | | | | | | | MED ONC | | | | | | | FOLLOW UP | | | +--------+--------+ + + + + Encounter Details +--------+ + + + + | Date | Type | Department | Care Team | Description | +--------+ + + + + | 07/31/ | Hospital | [facility] | Vladimir Robles, | Gallbladder cancer, | | 2019 | Encounter | [facility] | MD Alanna BURRELL | carcinoma (HCC) | | | | ONCOLOGY CLINIC [address] [place] | (Primary Dx) | | | | [address] | [place] [address] | | | | | [place] [address] | [phone] | | | | | [phone] | | | +--------+ + + + [...] insert 1 tablet | | 0 | /30/20 | | | (VAGIFEM) 10 mcg | [...] encounter Progress Notes Vladimir Robles MD - 08/01/2019 9:40 AM PDTFormatting of this note might be different fr om the original. Hematology-Oncology Progress Note [facility] Pt. Name/Age/: Aura Upton 58 y.o. 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 Assessment and plan: Patient's laboratory work is adequate to resume her treatment as prescribed by Dr. Lien nayak. 1. Proceed with carboplatin/gemcitabine as ordered. 2. Follow-up in [address] Najera for continued treatment. Subjective: The patient chart and medications were reviewed in detail and the patient was seen and exam ined. Aura Upton is a 58 y.o. female with recurrent cholangiocarcinoma here for chemotherap y. Per Dr. Najera's notes, diagnosed with cholangiocarcinoma in 2012, treated initially w ith surgical resection followed by adjuvant chemoradiotherapy. SHe has been through multipl e recurrences and cycles of chemotherapy, also immunotherapy since that time, most recently diagnosed with intraorbital recurrence in April 2019. She therefore resumed carboplatin/gem citabine chemotherapy on 06/08/2019. Per patient however, treatment has been intermittently delayed due to cytopenias, thinks her last treatment was several weeks ago. PMH: Past Medical History: Diagnosis Date Anxiety Chronic kidney disease Hydronephrosis on the left side.stable Depression Encounter for antineoplastic chemotherapy off Chemo x 1 year Gallbladder carcinoma (HCC) 03/2012 surgery, chemo, radiation - it has come back x 4 Hand pain thumbs and wrists Social & Family Hx: Social History Socioeconomic History Marital status: Spouse name: Not on file Number of children: Not on file Years of education: Not on file Highest education level: Not on file Tobacco Use Smoking status: Former Smoker Packs/day: 0.50 Years: 23.00 Pack years: 11.50 Types: Cigarettes Quit date: 2006 Years since quittin.4 Smokeless tobacco: Never Used Substance and Sexual Activity Alcohol use: Yes Comment: 0-3 per year Drug use: Never Comment: Drug use: No Family History Problem Relation Age of Onset Malig hypertherm Neg Hx Review of Systems: Constitutional: Pt reports moderate fatigue. Pt reports occasional nausea. Denies high feve rs, shaking chills, anorexia, vomiting, weight loss, or night sweats. Appetite without maranda nges. Ear, Nose, Mouth, Throat: Pt reports ongoing tinnitus. Denies odynophagia or dysphagia. Cardiovascular: Denies shortness of breath, dyspnea on exertion, chest pain, palpitations o r orthopnea. Respiratory: Denies cough, hemoptysis, or sputum production. Gastrointestinal: Pt reports ongoing lower abdominal pain. Pt reports daily diarrhea. Pt re ports G-tube - occasional gas build up and leaking. Denies constipation, melena, or bright r ed blood per rectum. Genitourinary: Denies hematuria or dysuria. Musculoskeletal: Denies joint pain or tenderness. Neurologic: Denies headache, visual changes, or numbness/tingling of the extremities. Endocrine: Pt reports minor swelling in the ankles when standing - relieved with rest. Russell es heat/cold intolerance. Hematologic: Denies spontaneous bruising or bleeding. Integumentary: Denies rash, wounds or other skin concerns. Pain: Pt reports abdominal pain of 3/10 currently. ROS otherwise negative. Note: Pt here for labs, follow-up and treatment My chart: Active Medications: Current Outpatient Medications Medication Sig dexamethasone (DECADRON) 4 mg tablet Take 1 tablet by mouth 2 times daily For 2 days after chemotherapy docusate sodium (STOOL SOFTENER) 100 mg capsule Take 100 mg by mouth 2 times daily. domperidone 10 mg capsule Take 1 tablet by mouth 4 times daily estradiol (VAGIFEM) 10 mcg vaginal tablet insert 1 tablet vaginally two times a week fentaNYL (DURAGESIC) 100 mcg/hr Place 1 patch onto the skin every 72 hours GRANIX 300 MCG/0.5ML injection HYDROcodone-acetaminophen (NORCO) 10-325 mg per tablet take 1 tablet by mouth every 4 h ours or 2 tablets by mouth every 6 hours if needed for pain HYDROmorphone (DILAUDID) 1 MG/ML LIQD Take by mouth every three hours as needed. Indica tions: unknown HYDROmorphone, PF, (DILAUDID-HP) 10 mg/mL injection Inject 2 Doses into the vein every hour as needed Two doses available per hour ibuprofen (ADVIL,MOTRIN) 600 MG tablet Take 1 tablet by mouth every 6 hours as needed LORazepam (ATIVAN) 1 mg tablet Take 1.5 mg by mouth. magnesium oxide (MAG-OX) 400 mg tablet naloxone (NARCAN) 4 mg/nasal spray Instill 1 spray into nose as needed for suspected op ioid overdose. Repeat with second device into other nostril after 2-3 minutes if no/minimal response. ondansetron (ZOFRAN ODT) 4 mg disintegrating tablet Dissolve 4 mg on tongue and swallow every twelve hours as needed. Indications: unknown home dose polyethylene glycol (MIRALAX) packet Take 17 g by mouth Daily. sodium chloride 0.9% (NS) bolus Inject into the vein Three times a week IV Hydration sterile water QS Base with amino acids 15% SOLN 1 g/kg, dextrose 70% SOLN 2.5 g/kg, sod ium chloride 4 mEq/mL (23.4%) SOLN 40 mEq, sodium acetate 2 mEq/mL SOLN 40 mEq, potassium ch loride 2 mEq/mL SOLN 30 mEq, potassium phosphate 3 mmol/mL SOLN 15 mmol, magnesium sulfate 5 00 mg/mL SOLN 12 mEq, calcium gluconate 10 % SOLN 8 mEq, adult multivitamin INJ 10 mL, trace elements adult 0.01-1-0.5-5 MG/ML SOLN 0.5 mL Inject into the vein Daily No current facility-administered medications for this encounter. Allergies: Allergies Allergen Reactions Sulfa Antibiotics Rash Ciprofloxacin Diarrhea and Itching Vitals: Temp: 37.3 C (99.2 F) BP: 93/50 Pulse: 97 Resp: 16 SpO2: 100 % on Temp :Temp Av.3 C (99.2 F) Min: 37.3 C (99.2 F) Max: 37.3 C (99.2 F) Wt. Current: Weight: 61.8 kg (136 lb 3.9 oz) Physical Exam: ECOG Performance Status: 1 General: The patient is alert and oriented. No acute distress. HEENT: Non-icteric. Neurological: , No focal deficits noted. Speech fluent. Psychiatric: Normal mood and affect. Appropriate. Diagnostic studies: Available data and image reports were reviewed personally. See reports. Significant resul ts and findings are addressed here or in the Assessment and Plan. Recent Labs Lab 08/01/19 0902 WBC 8.0 NEUABS 4.66 HGB 10.3* HCT 31.0* PLT 290 Recent Labs Lab 08/01/19 0902 NA 136 K 3.6 CL 103 CO2 24 BUN 33* CREA 0.97 GLU 107* CALCIUM 8.8 BILITOT 0.4 AST 25 ALT 14 ALKPHOS 164* ALBUMIN 3.5 Electronically signed by: Vladimir Robles MD 08/01/2019 9:52 AM PDT CC: No Physician on file Total time in face to face discussion with the patient and family was 15 minutes; more than 50% of the time was spent in counseling and coordination of care. Portions of this chart may have been created with [employer] voice recognition software. Occasi onal wrong-word or [...] [address] | | | | | | [place] [address] | | | | | | [phone] | | | | | | | | +--------+---------+ + + + documented as of this encounter Visit Diagnoses + + | Diagnosis | + + | Gallbladder cancer, 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
--- OUTSIDE RECORDS SUMMARY | ~2019-10-19 | XMS | Encounter Summary ---
Demographics + + + | Address | [address] | | | [place] [address] | + + + | Home Phone [...] + | Poncho Oquendo | ECON | [address] | | | | | [place] | | | | | [address] | | + + + + + | Marta Utpon | ECON | [place] | | | | | [address] | | + + + + + Care Team Providers + +------+ + | Care Catering Assistant Name | Role | Phone | + +------+ + | No, Physician | PCP | Unavailable | + +------+ + Encounter Details +--------+ + + + + | Date | Type | Department | Care Team | Description | +--------+ + + + + | 09/17/ | Hospital | [facility] | | | | 2013 | Encounter | MED CTR XRAY [address] | | | | | | [address] | | | | | | [place] [address] | | | | | | [phone] | | | +--------+ + + + [...] [address] | | | | | | [place] [address] | | | | | | [phone] | | | | | | | | +--------+---------+ + + + documented as of this encounter Visit Diagnoses Not on filedocumented in this encounter"
--- OUTSIDE RECORDS SUMMARY | ~2019-10-19 | XMS | Encounter Summary ---
Demographics + + + | Address | [address] | | | [place] [address] | + + + | Home Phone [...] + | Poncho Oquendo | ECON | [address] | | | | | [place] | | | | | [address] | | + + + + + | Marta Upton | ECON | [place] | | | | | [address] | | + + + + + Care Team Providers + +------+ + | Care Fire Crew Worker Name | Role | Phone | + +------+ + PCP | Unavailable | + +------+ + Encounter Details +--------+ + + + + | Date | Type | Department | Care Team | Description | +--------+ + + + + | 05/05/ | Hospital | [facility] | Hakan Cherry | | | 2011 | Encounter | MED CTR XRAY [address] | | | | | [place] | [place], [place] | | | | | [place] [address] | [address] | | | | | [phone] | | | +--------+ + + + [...] [address] | | | | | | [place] [address] | | | | | | [phone] | | | | | | | [...] At | + + + | [facility] Diagnostic Imaging Department | [place] | | [address], [facility] | [facility] | | PROCEDURE NOTE LUMBAR FACET [...] Transcribed Date/Time: 05/06/2011 17:17 | | | Umbrella Tipper Hand: <Electronically Signed by Hakan Field | | | MD Dilip> 05/14/11 1336 | | + + + + + | Procedure Note | + + | Edmundo, Rad Conversion - 03/23/2013 4:58 PM [facility] | | Diagnostic Imaging Department [address] [place] [address] | | PROCEDURE NOTE LUMBAR FACET INJECTION, [...] 17:08 | |Transcribed Date/Time: 05/06/2011 17:17 | |Umbrella Tipper Hand: | |<Electronically Signed by Hakan Cherry MD> [...]
--- OUTSIDE RECORDS SUMMARY | ~2019-10-19 | XMS | Encounter Summary ---
Demographics + + + | Address | [address] | | | [place] [address] | + + + | Home Phone [...] Providers + +------+ + | Care Hydroelectric Machinery Mechanic Helper Name | Role | Phone [...] | | | Reconstructive | Velma Whitfield Wolsey, | Examination (Primary | | | | Services at [facility] | [place] [address] | Dx); Perforation of | | | | [address] | [phone] | Nasal Septum | | | | [facility] | | | | | | and Healing, | | | | | | Building [address], 5th | | | | | | Floor [facility] [place] | | | | | | [address] | | | | | | [phone] | | | +--------+---------+ + + + [...] surgeries scheduled to take place on the [place] at the [facility]: Surgeries scheduled in the [facility] ([address] [place] [address]): registration is located on the 4th floor of [facility] (Day Surgery). Surgeries scheduled in the [facility]: registration is located on the 9th floor. Surgeries scheduled in [facility]: registration is located on the 6th floor. Surgeries scheduled in the [facility]: registration is located i n the [facility] on the first floor. For surgeries scheduled to take place at the [facility]: registration is l [...] If you use specialized medical equipment at [facility], please check with your provider before [...] Surgery Dept. of Otolaryngology/Head and Neck Surgery [facility] [email or web address], Prudencio Coello MD - [...] BTL Allergies: nkda Social History: Lives in [place]. Past smoking history, none now. No alcohol [...] wishes to sc hedule. Jose Olivia MD Stone Chimney Mason Facial Plastic and Reconstructive Surgery Department of Otolaryngology/Head and Neck Surgery [facility] [place] Email - [email or web address] HISTORY: Clinic: Facial Plastic and [...] today. Photos obtained. She met with my professor of theology maximo hirsch. Followup arranged for preop. Time spent with patient /family, reviewing studies/ recor ds 20 minutes, with >50 % of time spent in consultation and coordination of care. Virgilio Buck MD FACS Professor Facial Plastic and Reconstructive Surgery Dept. of Otolaryngology/Head and Neck Surgery [facility] tel fax email [email or web address] CURRENT PROBLEM LIST: Patient Active [...]
--- OUTSIDE RECORDS SUMMARY | ~2019-10-19 | XMS | Encounter Summary ---
Demographics + + + | Address | [address] | | | [place] [address] | + + + | Home Phone [...] + | Poncho Oquendo | ECON | [address] | | | | | [place] | | | | | [address] | | + + + + + | Marta Upton | ECON | [place] | | | | | [address] | | + + + + + Care Team Providers + +------+ + | Care Sap Technical Architect Name | Role | Phone | [...] | | | ONCOLOGY CLINIC [address] | [facility] | | | | | [address] | [address] [place], [place] | | | | | [place] [address] | [address] | | | | | [phone] | | | +--------+ + + + [...] [address] | | | | | | [place] [address] | | | | | | [phone] | | | | | | | | +--------+---------+ + + + documented as of this encounter Visit Diagnoses + + | Diagnosis | + + | Gallbladder cancer, 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
--- OUTSIDE RECORDS SUMMARY | ~2019-10-19 | XMS | Encounter Summary ---
Demographics + + + | Address | [address] | | | [place] [address] | + + + | Home Phone [...] Team Providers + +------+ + | Care Novelties Sales Representative Name | Role | Phone [...] & | Diagnoses | Degeest, | [facility] [employer] Onc | | | | Gynecology | Pelvic mass | MD Miguel | [address] | | | | | Procedures | [address] | [address] | | | | | REQUEST TO | [address] Agosto | [place] | | | | | SURGERY | [address] | Alexis, 7th | | | | | BODS DEVELOPER | [place], [place] | floor | | | | | [place] | [address] | [place], [place] | | | | | EXPLORATORY | Phone: | [phone] | | | | | OF ABDOMEN | [phone] | Phone: | | | | | [place] RESEC | Fax: | [phone] | | | | | OVAR | [phone] | Fax: | | | | | MALIG+JAKE+PE | | [phone] | | | | | LV NODES [...] & | Diagnoses | Non-[facility] | [facility] [employer] Onc | | | | Gynecology | Complex | Epic Dept | [address] | | | | | Cystic Mass, | | [address] | | | | | elevated | | [place] | | | | | [address] per | | Pavilion, 7th | | | | | appt notes | | floor | | | | | | | [place], [place] | | | | | | | [address] | | | | | | | Phone: | | | | | | | [phone] | | | | | | | Fax: | | | | | | | [phone] | +--------+--------+ + + + + Encounter Details +--------+---------+ + + + | Date | Type | Department | Care Team | Description | +--------+---------+ + + + | 05/28/ | Office | [facility] | Miguel Seymour, | Preoperative testing | | 2015 | Visit | [facility] | [address] | (Primary Dx); | | | | [address] | [address] | Pelvic mass | | | | [address] | [place], [place] | | | | | Alexis, 7th floor | [address] | | | | | [place], [place] | [phone] | | | | | [address] | | | | | | [phone] | | | +--------+---------+ + + + [...] might be diff erent from the original. [facility] RETURN VISIT 05/28/2014 Referring provider: Valeriy [...] | + + + + + | [facility] | [address] | [place] [address] | | | SERVICES, CORE | PARK [...] | + + + + + | [facility] | [address] | [place] [address] | | | SERVICES, CORE | NEAL [...] | | | LABORATORY | | | PORTUGUESE | | | SERVICES, | | | [...] | + + + + + | [facility] | [address] | [place] [address] | | | SERVICES, CORE | NEAL [...]
--- OUTSIDE RECORDS SUMMARY | ~2019-10-19 | XMS | Encounter Summary ---
Demographics + + + | Address | [address] | | | [place] [address] | + + + | Home Phone [...] + | Poncho Oquendo | ECON | [address] | | | | | [place] | | | | | [address] | | + + + + + | Marta Upton | ECON | [place] | | | | | [address] | | + + + + + Care Team Providers + +------+ + | Care Char Filter Tank Tender Name | Role | Phone | [...] | | (HCC) | [place] | [place] | | | | | Procedures | [address] | [address] | | | | | [place] OFFICE | Phone: | [place] | | | | | OUTPATIENT | [phone] | [address] | | | | | VISIT 25 | Fax: | Phone: | | | | | MINUTES | [phone] | [phone] | | | | | | | Fax: | | | | | | | [phone] | +--------+--------+ + + + + Encounter Details +--------+ + + + + | Date | Type | Department | Care Team | Description | +--------+ + + + + | 05/21/ | Hospital | [facility] | Mathieu Langford | Gallbladder cancer, | | 2017 | Encounter | MED CTR MEDICAL | MD Epifanio [address] | carcinoma (HCC) | | | | ONCOLOGY CLINIC [address] | [facility] | (Primary Dx) | | | | [address] [facility] | [place] [address] | | | | | [place] [address] | [phone] | | | | | [phone] | | | +--------+ + + + [...] erent from the original. Hem-Onc Progress Note Merged With [facility] Pt. Name/Age/: Aura Upton 55 y.o. 1960 Med. Record Number: [id number] Date of admission: 05/21/2016 Assessment and plan: [...] Electronically signed by: Mathieu Langford, 05/21/2016 9:08 [facility] TIME SPENT 20 MIN. > 50% AT BEDSIDE, WITH FAMILY/PATIENT IN CARE AND MINING TECHNICIAN ON UNIT AND CO ORDINATION OF CARE Portions of this chart may have been created with [employer] voice recognition software. Occasi onal wrong-word or sound-alike substitutions may have occurred due to the inherent stevenson itations of voice recognition software. Please read the chart carefully and recognize, using context, where these substitutions have occurred. Kalee Gee RN - 05/21/2016 8:45 AM PDTREVIEW OF [...] Langford, labs and 4 hour treatment. (Dr. Reinaldo ruiz. She is having concerns about an immune therapy that she is taking through subcu injecti ons. She has large bruise on right abdomen. My chart: active do cumented in this encounter Plan of Treatment +--------+---------+ + + + | Date | Type | Specialty | Care Team | Description | +--------+---------+ + + + | 10/29/ | Office | Urology | Pedro Green, | | | 2019 | Visit | | DO [address] | | | | | | [place] [address] | | | | | | [phone] | | | | | | | [...] [place] | | | | | | [address] | | | | + + + + + + + + | Specimen | + + | Blood specimen | | (specimen) | + + + + + + + | Performing | Address | City/State/Zipcode | Phone Number | | Organization | | | | + + + + + | [facility] | [address] | [place] [address] | [phone] | + + + + + Lactate [...] + | [facility] | [address] | [place] | [phone] | | [facility] | | [address] | | | - LABORATORY | | [...] | 0.97 | 0.60 - 1.30 | [facility] | | | | | mg/dL | [facility] | | | | | | MEDICAL | | | | | | CENTER - | | | | | | LABORATORY | | + + + + + + | eGFR, | 60Comment: GLOMERULAR | >=60 | [facility] | | | non- | FILTRATION | mL/min/1.73m2 | [facility] | | | Bahamian | RATE,ESTIMATED | | MEDICAL | | | | mL/min/1.11j4Yvhn than | | CENTER - | | [...] | 8.9 | 8.3 - 10.5 | [facility] | | | | | mg/dL | [...] [address] | [place] | [phone] | | [facility] | | [address] | | | - LABORATORY | | | | + + + + + CBC with Differential (05/21/2016 8:35 AM PDT) + + + + + + | Component | Value | Ref Range | Performed | Pathologist | | | | | At | Signature | + + + + + + | White Blood | 5.0 | 4.0 - 11.0 K/uL | [facility] | | | Cells | | | [facility] | | | | | | MEDICAL | | | | | | CENTER - | | | | | | LABORATORY | | + + + + + + | Red Blood | 3.14 (L) | 3.70 - 5.20 | [facility] | | | Cells | | M/uL | [facility] | | | | [...] | Basophils | | K/uL | [facility] | | | | [...] [address] | [place] | [phone] | | [facility] | | [address] | | | - LABORATORY | | [...] ST. 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
--- OUTSIDE RECORDS SUMMARY | ~2019-10-19 | XMS | Encounter Summary ---
Demographics + + + | Address | [address] | | | [place] [address] | + + + | Home Phone [...] Team Providers + +------+ + | Care Diet Aide Name | Role | Phone | + +------+ + PCP | Unavailable | + +------+ + Encounter Details +--------+ + + + + | Date | Type | Department | Care Team | Description | +--------+ + + + + | 04/07/ | Abstract | [facility] | Tai Stanton, | | | 2012 | | [place] [address] | [address] [facility] | | | | | [place] | [facility] | | | | | for Health and | [place], [place] | | | | | [facility] | [address] | | | | | [place], [place] | [phone] | | | | | [address] | | | | | | [phone] | | | +--------+ + + + [...]
--- OUTSIDE RECORDS SUMMARY | ~2019-10-19 | XMS | Encounter Summary ---
Demographics + + + | Address | [address] | | | [place] [address] | + + + | Home Phone [...] | Author | [facility] | | | and [place] | + + + | Organization | [facility] | | | and [place] | + + + | Address | Unknown | + + + | Phone | Unavailable | + + + Support + + + + + | Name | Relationship | Address | Phone | + + + + + | Poncho Oquendo | ECON | [address] | | | | | [place] | | | | | [address] | | + + + + + | Marta Upton | ECON | [place] | | | | | [address] | | + + + + + Care Team Providers + +------+ + | Care Laundry Assistant Name | Role | Phone | [...] + + | 08/01/ | Telephone | [facility] | Reinaldo, | Other | | 2018 | | MED CTR MED[facility] | Epifanio Sloer MD 9[address] | | | | | [facility] CL[facility]IC [facility] | [facility] | | | | | [address] | [address] [place], [place] | | | | | [place] [address] | [address] | | | | | [phone] | | | +--------+ + + + [...] last bag so she is following up [phone] is the # she is at if [...] [address] | | | | | | [place] [address] | | | | | | [phone] | | | | | | | | +--------+---------+ + + + documented as of this encounter Visit Diagnoses Not on filedocumented in this encounter"
--- OUTSIDE RECORDS SUMMARY | ~2019-10-19 | XMS | Encounter Summary ---
Demographics + + + | Address | [address] | | | [place] [address] | + + + | Home Phone [...] + | Poncho Oquendo | ECON | [address] | | | | | [place] | | | | | [address] | | + + + + + | Marta Upton | ECON | [place] | | | | | [address] | | + + + + + Care Team Providers + +------+ + | Care School Operations Manager Name | Role | Phone [...] | | | ONCOLOGY CLINIC 401 | [facility] | | | | | [address] | [address] [place], [place] | | | | | [place] [address] | [address] | | | | | [phone] | | | +--------+ + + + [...] [address] | | | | | | [place] [address] | | | | | | [phone] | | | | | | | | +--------+---------+ + + + documented as of this encounter Visit Diagnoses + + | Diagnosis | + + | Gallbladder cancer, 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
--- OUTSIDE RECORDS SUMMARY | ~2019-10-19 | XMS | Encounter Summary ---
Demographics + + + | Address | [address] | | | [place] [address] | + + + | Home Phone [...] | Poncho Omar Oquendo | ECON | [address] | | | | | [place] | | | | | [address] | | + + + + + | Marta Upton | ECON | [place] | | | | | [address] | | + + + + + Care Team Providers + +------+ + | Care Body Repairer Name | Role | Phone | [...] | | Procedures | [address] | [place], [place] | | | | | PET CT Skull | [place], | [address] | | | | | Base To Mid | [place] [address] | Phone: | | | | | Thigh | | [phone] | | | | | | | Fax: | | | | | | | [phone] | +--------+--------+ + + + + Reason [...] | | Procedures | [address] | [place], [place] | | | | | PET CT Skull | [place], | [address] | | | | | Base To [place] | [place] [address] | Phone: | | | | | Thigh | | [phone] | | | | | | | Fax: | | | | | | | [phone] | +--------+--------+ + + + + Encounter Details +--------+ + + + + | Date | Type | Department | Care Team | Description | +--------+ + + + + | 02/15/ | Hospital | [facility] | Reinaldo, | 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) | | | | MEDICINE 9[address] | [address] | | | | | [address] | [address] | | | | | [place], [place] | [address] | | | | | [address] | | | | | | [phone] | | | +--------+ + + + [...] [place]A | | | | | | [place] [address] | | | | | | [phone] | | | | | | | [...] | | | POC | performed at [facility];[address] | | LABORATORY | | | | Larisa Maradiaga;[place] | | | | | | [address] | | | | + + + + + + + + | Specimen | + + | | + + + + + + + | Performing | Address | City/State/Zipcode | Phone Number | | Organization | | | | + + + + + | [facility] | [address] | [place] [address] | [phone] | + + + + + documented [...] millicur | | | | Intravenous, ONCE, [facility] 02/15/19 at | | PM PST | ies | | | | 1315, For 1 dose | | | | | | + +--------+ + +------+------+ +---+---+ | | | +---+---+ documented in this encounter"
--- OUTSIDE RECORDS SUMMARY | ~2019-10-19 | XMS | Encounter Summary ---
Demographics + + + | Address | [address] | | | [place] [address] | + + + | Home Phone [...] Team Providers + +------+ + | Care Roof Slater Name | Role | Phone | + [...] Center at [facility] [address] | [address] [facility] [facility] | | | | | [facility] | [facility] | | | | | for [facility] and | [place], [place] | | | | | [facility], [place] [address] | [address] | | | | | [place], [place] | [phone] | | | | | [address] | | | | | | [phone] | | | +--------+ + + + [...] Notes Telephone Encounter - Epifanio Trujillo - 04/24/2012 9:06 AM PDTPatient called in again to papo siegel along message that her Doctor had called her and questions had been answered, and that mars se coordinator did not need to call her. PAPO shared that message would be passed along and that no call back was needed TTelephone Encounter - Epifanio Trujillo - 04/24/2012 8:53 AM Desi Upton calling davidshubham richards to continue conversation, of 04/21/12. Patient had additional questions. Patient reques ashley call back Advised caller that they may not receive a call back from nurse or provider until the next business day. Caller understands and is agreeable to this. Is it alright to leave a detailed message? Yes Pain Scale: 0/10 Recent Surgery or Procedure: No Pharmacy: Pharmacy Preferences: [facility] [place] [address] documented in this encounte r Plan of Treatment Not on filedocumented as of this encounter Visit Diagnoses Not on filedocumented in this encounter"
--- OUTSIDE RECORDS SUMMARY | ~2019-10-19 | XMS | Encounter Summary ---
Demographics + + + | Address | [address] | | | [place] [address] | + + + | Home Phone [...] Team Providers + +------+ + | Care Edging Machine Operator Name | Role | Phone [...] (HCC) | Surendra Carreon | Velma [place]field [facility] | | | | | Procedures | Rd | Hospital, | | | | | CT CHEST, | [place], [place] | 10th Floor | | | | | ABDOMEN & | [address] | [place], [place] | | | | | PELVIS [address] IV | Phone: | [phone] | | | | | CONTRAST | [phone] | Phone: | | | | | [address], [address] | Fax: | [phone] | | | | | | [phone] | Fax: | | | | | | | [phone] | +--------+--------+ + + + + Reason [...] | | | | CT CHEST, | [place], [place] | 10th Floor | | | | | ABDOMEN & | | [place], [place] | | | | | PELVIS W IV | Phone: | [phone] | | | | | CONTRAST | [phone] | Phone: | | | | | [address], [address] | Fax: | [phone] | | | | | | [phone] | Fax: | | | | | | | [phone] | +--------+--------+ + + + + Encounter Details +--------+ + + + + | Date | Type | Department | Care Team | Description | +--------+ + + + + | 04/12/ | Hospital | Radiology/Imaging | | | | 2012 | Encounter | Lab at [facility] [address] | | | | | | [facility] | | | | | [facility], | | | | | | [address] | | | | | | Floor [place], [place] | | | | | | [address] | | | | | | [phone] | | | +--------+ + + + [...] | | + +---------+ + + | [facility] DEPARTMENT OF | | | | | RADIOLOGY | | | | + +---------+ + + documented in this encounter Visit Diagnoses + + | Diagnosis | + + | Gallbladder cancer (HCC) Malignant neoplasm of gallbladder | + + documented in this encounter"
--- OUTSIDE RECORDS SUMMARY | ~2019-10-19 | XMS | Encounter Summary ---
Demographics + + + | Address | [address] | | | [place] [address] | + + + | Home Phone [...] + | Poncho Oquendo | ECON | [address] | | | | | [place] | | | | | [address] | | + + + + + | Marta Upton | ECON | [place] | | | | | [address] | | + + + + + Care Team Providers + +------+ + | Care Saw Handle Assembler Name | Role | Phone | + +------+ + | Valeriy Carmona DO | PCP | | + +------+ + Reason for Visit +--------+--------+ + | Reason | Onset | Comments | | | Date | | +--------+--------+ + | Other | 06/17/ | | | | 2016 | | +--------+--------+ + Encounter Details +--------+ + + + + | Date | Type | Department | Care Team | Description | +--------+ + + + + | 06/17/ | Telephone | [facility] | Reinaldo, | Other | | 2016 | | MED CTR MEDICAL | Chad Soler MD [address]17 | | | | | ONCOLOGY CLINIC [facility] | [facility] | | | | | [address] | [address] [place], [place] | | | | | [place] [address] | [address] | | | | | [phone] | | | +--------+ + + + [...] Telephone Encounter - Chad Riggins MD - 06/17/2016 9:37 AM PDTReturned call. She will try daily fiber for diarrhea. Electronically signed by: CHAD RIGGINS MD 2016 9:38 elephone Jo Ann chaves - Sonia Renae RN - [facility]17[facility]2016 [facility]10[facility]16 requested and received for review. Please advise. elephone Encounter - Vicky Shelton - 06/17/2016 8:11 AM Junie dangelo was seen in the ER and prescribed an anitbiotic for an infection (Cephalexin),the antibiot ics are causing diarrhea and vomiting. Aura would like to know if there is an alternative antibiotic the Can prescribe, she stated that she prefers Z-miguel ángel. Please return call, th ank jose e. documented in this encounter Plan of Treatment +--------+---------+ + + + | Date | Type | Specialty | Care Team | Description | +--------+---------+ + + + | 10/29/ | Office | Urology | Pedro Green, | | | 2019 | Visit | | DO Vaish[address] | | | | | | [place] [address] | | | | | | [phone] | | | | | | | | +--------+---------+ + + + documented as of this encounter Visit Diagnoses Not on filedocumented in this encounter"
--- OUTSIDE RECORDS SUMMARY | ~2019-10-19 | XMS | Encounter Summary ---
Demographics + + + | Address | [address] | | | [place] [address] | + + + | Home Phone [...] Providers + +------+ + | Care Store Specialist Name | Role | Phone | [...] | | | | | | [place] | | | | | | [place] [address] | | | +--------+--------+ + + + [...]
--- OUTSIDE RECORDS SUMMARY | ~2019-10-19 | XMS | Encounter Summary ---
Demographics + + + | Address | [address] | | | [place] [address] | + + + | Home Phone [...] Team Providers + +------+ + | Care Explosive Technician Name | Role | Phone | [...] | Constipation | | 2015 | | [facility] | [address] | (Miguel Seymour) | | | | [address] | [facility] | | | | | [address] | [place], [place] | | | | | Colleenilievelio, [address] [place] [address] | [address] | | | | | [place], [place] | [phone] | | | | | [address] | | | | | | [phone] | | | +--------+ + + + [...] she will present to local ER at [facility] and keep this office posted. elephone Encounter [...] a call back as soon as possible. [phone] documented in this encoun ter Plan of Treatment Not on filedocumented as of this encounter Visit Diagnoses + + | Diagnosis | + + | Nausea - Primary Nausea alone | + + | Pelvic mass Abdominal or pelvic swelling, mass or lump, unspecified site | + + documented in this encounter"
--- OUTSIDE RECORDS SUMMARY | ~2019-10-19 | XMS | Encounter Summary ---
Demographics + + + | Address | [address] | | | [place] [address] | + + + | Home Phone [...] + | Poncho Oquendo | ECON | [address] | | | | | [place] | | | | | [address] | | + + + + + | Marta Upton | ECON | [place] | | | | | [address] | | + + + + + Care Team Providers + +------+ + | Care Fence Rider Name | Role | Phone | + +------+ + | Valeriy Carmona DO | PCP | | + +------+ + Reason for Visit + +--------+ + | Reason | Onset | Comments | | | Date | | + +--------+ + | IDT Note | 06/26/ | | | | 2014 | | + +--------+ + Encounter Details +--------+ + + + + | Date | Type | Department | Care Team | Description | +--------+ + + + + | 06/26/ | Telephone | [facility] | Marcelina Johnson, | IDT Note | | 2014 | | MED CTR CHEMO | RN | | | | | INFUSION [address] | | | | | | [place], | | | | | | [place] [address] | | | | | | [phone] | | | +--------+ + + + [...] Telephone Encounter - Marcelina Johnson RN - 06/26/2014 2:14 PM PDT [facility] Interdisciplinary Team Navigational Checklist ? Top Priority Discipline EPIC Order Entered Consult Scheduled Consult Complete Comments: x *Medical Oncology Dr. Najera *Radiation Oncology x *Patient Navigation x *Nurse Navigator x *Social Service Survivorship Nurse Breast Health Genetics Surgical Input x *Nursing assessment Cisplatin day 1 & Gemzar D1,8 every 21 days receive 2 days post hydration and antinausea meds in [place] x *Pharmacy assessment No issues at this time; will re-assess with more current labs whe n available. x Nutrition x Rehab: Fani to assess needs PT OT Speech & Language Palliative Care Clinical Trials Involvement Trimmer Helper Visit Financial Assistance Interdisciplinary Consults Completed Date: documented in this en counter Plan of Treatment +--------+---------+ + + + | Date | Type | Specialty | Care Team | Description | +--------+---------+ + + + | 10/29/ | Office | Urology | Pedro Green, | | | 2019 | Visit | | DO Vaish[address] | | | | | | [place] [address] | | | | | | [phone] | | | | | | | | +--------+---------+ + + + documented as of this encounter Visit Diagnoses Not on filedocumented in this encounter"
--- OUTSIDE RECORDS SUMMARY | ~2019-10-19 | XMS | Encounter Summary ---
Demographics + + + | Address | [address] | | | [place] [address] | + + + | Home Phone [...] Team Providers + +------+ + | Care Bundle Packer Name | Role | Phone | [...] | 2015 | Encounter | [facility] | [address] | Movement What Is My | | | | [address] | [facility] | Next Step? | | | | [address] | [place], [place] | | | | | Alexis, [facility] floor | [address] | | | | | [place], [place] | [phone] | | | | | [address] | | | | | | [phone] | | | +--------+ + + + [...]
--- OUTSIDE RECORDS SUMMARY | ~2019-10-19 | XMS | Encounter Summary ---
Demographics + + + | Address | [address] | | | [place] [address] | + + + | Home Phone [...] + | Poncho Oquendo | ECON | [address] | | | | | [place] | | | | | [address] | | + + + + + | Marta Upton | ECON | [place] | | | | | [address] | | + + + + + Care Team Providers + +------+ + | Care Orthotics Prosthetics Assistant Name | Role | Phone | [...] + + | 11/07/ | Telephone | [facility] | Reinaldo, | Other | | 2014 | | MED CTR MEDICAL | Epifanio Soler MD [address] | | | | | ONCOLOGY CLINIC [address] | [facility] | | | | | [address] | [address] [place], [place] | | | | | [place] [address] | [address] | | | | | [phone] | | | +--------+ + + + [...] | | | | [facility] [place] [address] | | | | | | [phone] | | | | | | | | +--------+---------+ + + + documented as of this encounter Visit Diagnoses Not on filedocumented in this encounter"
--- OUTSIDE RECORDS SUMMARY | ~2019-10-19 | XMS | Encounter Summary ---
Demographics + + + | Address | [address] | | | [place] [address] | + + + | Home Phone [...] Providers + +------+ + | Care Medical Attendant Name | Role | Phone | [...] | Documentati | [facility] | Blaze Woods MD | Tumor Board | | 2015 | on | [facility] | [address] | Recommendation | | | | [address] | Park [facility], | | | | | [address] | [place] [address] | | | | | Pavilion, [facility] floor | [phone] | | | | | [place], [place] | | | | | | [address] | | | | | | [phone] | | | +--------+ + + + [...] this encounter Miscellaneous Notes Telephone Encounter - Blaze Woods MD - 06/14/2014 7:07 PM PDTGYNECOLOGIC ONCOLOGY TUMOR BOARD REVIEW The surgical pathology for Aura Upton was reviewed at [facility] tumor [facility] on 06/14/2014 Intake Assessor Oncology Provider: Dr. Henderson Surgery: Ex lap, JAKE/BSO, pelvic and periaortic lymphadenectomy, omentectomy Pathology: SURGICAL PATHOLOGY SOURCE OF SPECIMEN:A Pelvic washings SOURCE OF SPECIMEN:B Left ovary and tube FS SOURCE OF SPECIMEN:C Mesentery sigmoid colon SOURCE OF SPECIMEN:D Right ovary and tube, uterus and cervix SOURCE OF SPECIMEN:E Omentum SOURCE OF SPECIMEN:F Left para-aortic lymph nodes SOURCE OF SPECIMEN:G Left pelvic lymph nodes SOURCE OF SPECIMEN:H Left pelvic sidewall SOURCE OF SPECIMEN:I Cul de sac peritoneum SOURCE OF SPECIMEN:J Right pelvic sidewall Final Pathologic Diagnosis: A: Pelvic washings, sent to Cytology: - Please see corresponding [id number] B: Left ovary and fallopian tube, salpingo-oophorectomy: [...] excised lymph nodes from the gallbladder bed ([id number], slides E3-4). Additionally, immunohistochemical staining on the left ovarian tumor shows the cells to be positive for CDX-2, consistent with gastrointestinal origin. Case seen by: Jose Covarrubias M.D./Surgical Pathology Resident Michael Smith M.D./Pathologist /rdl (Analyte specific reagents are used in many laboratory tests necessary for standard medical care. This test was developed and its performance characteristics determined by [facility]. It has not been cleared or approved by the US Food and Drug Administration (FDA). FDA does not require this test to go through premarket FDA review. This test is used for clinical purposes. It should not be regarded as investigational or for research. This laboratory is certified under the Clinical Laboratory Improvement Amendments (CLIA) as qualified to perform high complexity clinical laboratory testing.") Diagnosis: Recurrent gallbladder cancer Recommended treatment plan: Will refer back to Dr. Stanton for ongoing treatment of her re current gallbladder cancer. BLAZE WOODS MD Resident Physician, Obstetrics & Gynecology Gynecologic Oncology Service Pager [phone] documented in this encou nter Plan of Treatment Not on filedocumented as of this encounter Visit Diagnoses Not on filedocumented in this encounter
--- OUTSIDE RECORDS SUMMARY | ~2019-10-19 | XMS | Encounter Summary ---
Demographics + + + | Address | [address] | | | [place] [address] [...] Author | [facility] | | | and [place] | + + + | Organization | [facility] | | | and [place] | + + + | Address | Unknown | + + + | Phone | Unavailable | + + + Support + + + + + | Name | Relationship | Address | Phone | + + + + + | Poncho Oquendo | ECON | [address] | | | | | [place] | | | | | [address] | | + + + + + | Marta Upton | ECON | [place] | | | | | [address] | | + + + + + Care Team Providers + +------+ + | Care Education Program Associate Name | Role | Phone | [...] | | Personal | Reinaldo, | [address] [place] | | | | | 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, | [place], | | | | | 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[address] | [place] [address] | | | | | neoplasm of | [place] [place] | Phone: | | | | | other site | [address] | [phone] | | | | | in | [place], | Fax: | | | | | gastrointest | [place] [address] | [phone] | | | | | inal tract | Phone: | | | | | | Procedures | [phone] | | | | | | CT Abdomen | Fax: | | | | | | Pelvis w | [phone] | | | | | | Contrast [...] | | Personal | Reinaldo, | [address] [place] | | | | | 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, | [place], | | | | | 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 [address] | [place] [address] | | | | | neoplasm of | RICARDA LINDQUIST | Phone: | | | | | other site | [address] | [phone] | | | | | in | OB[place], | Fax: | | | | | gastrointest | [place] [address] | [phone] | | | | | inal tract | Phone: | | | | | | Procedures | [phone] | | | | | | CT Abdomen | Fax: | | | | | | Pelvis w | [phone] | | | | | | Contrast | | | +--------+--------+ + + + + Encounter Details +--------+ + + + + | Date | Type | Department | Care Team | Description | +--------+ + + + + | 03/18/ | Hospital | [facility] | Reinaldo, | Personal history of | | 2015 | Encounter | MED CTR [address] | Epifanio Soler MD [address] | malignant neoplasm | | | | [place], | [address] [place] | of other site in | | | | [place] [address] | [address] [place], [place] | gastrointestinal | | | | [phone] | [address] | tract | | | | | [...] [address] | | | | | | [place] [address] | | | | | | [phone] | | | | | | | [...] + | MISCELLANEOUS LAB | | | [phone] | + +---------+ + + | MISCELANIOUS LAB | | | [phone] | + +---------+ + + documented in [...]
--- OUTSIDE RECORDS SUMMARY | ~2019-10-19 | XMS | Encounter Summary ---
Demographics + + + | Address | [address] | | | [place] [address] | + + + | Home Phone [...] Providers + +------+ + | Care Hand Pattern Marker Name | Role | Phone | [...] | | (HCC) | | | | [facility] | | | | | | and Healing, | | | | | | [address] | | | | | | [place], [place] | | | | | | [address] | | | | | | [phone] | | | +--------+------+ + + + [...] | + + + + + | [facility] | [address] | [place] [address] | | | SERVICES, CORE | PARK [...] by | | | | | | [employer],[address] | | | | | | Lavonne James, [facility] | | | | | | [address] | | | | | | [phone]. | | | | | | Lala [...] [facility] | [address] | [place], [place] | | | [facility] | | [address] | | + + + + + [...] [place] | | | | | | [facility] [address] | | | | | | [phone]. | | | | | | Lala [...] [facility] | [address] | [place], [place] | | | [facility] | | [address] | | + + + + + [...] | + + + + + | 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
--- OUTSIDE RECORDS SUMMARY | ~2019-10-19 | XMS | Encounter Summary ---
Demographics + + + | Address | [address] | | | [place] [address] | + + + | Home Phone [...] + | Poncho Oquendo | ECON | [address] | | | | | [place] | | | | | [address] | | + + + + + | Marta Upton | ECON | [place] | | | | | [address] | | + + + + + Care Team Providers + +------+ + | Care Mining Detail Draftsperson Name | Role | Phone | + [...] | | Personal | Reinaldo, | [place] | | | | | 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, | [place], | | | | | 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[address] | [place] [address] | | | | | neoplasm of | RICARDA LINDQUIST | Phone: | | | | | other site | [address] | [phone] | | | | | in | [place], | Fax: | | | | | gastrointest | [place] [address] | [phone] | | | | | inal tract | Phone: | | | | | | Procedures | [phone] | | | | | | CT Abdomen | Fax: | | | | | | Pelvis w | [phone] | | | | | | Contrast [...] | | Personal | Reinaldo, | [place] | | | | | 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, | [place], | | | | | 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 [address] | [place] [address] | | | | | neoplasm of | RICARDA LINDQUIST | Phone: | | | | | other site | [address] | [phone] | | | | | in | [place], | Fax: | | | | | gastrointest | [place] [address] | [phone] | | | | | inal tract | Phone: | | | | | | Procedures | [phone] | | | | | | CT Abdomen | Fax: | | | | | | Pelvis w | [phone] | | | | | | Contrast | | | +--------+--------+ + + + + Encounter Details +--------+ + + + + | Date | Type | Department | Care Team | Description | +--------+ + + + + | 03/18/ | Hospital | [facility] | Reinaldo, | Personal history of | | 2015 | Encounter | [facility] [address] | Epifanio Soler MD [address] | malignant neoplasm | | | | [place], | [address] [place] | of other site in | | | | [place] [address] | [address] [place], [place] | gastrointestinal | | | | [phone] | [address] | tract | | | | | [...] [place] | | | | | | [place] [address] | | | | | | [phone] | | | | | | | [...] + | MISCELLANEOUS LAB | | | [phone] | + +---------+ + + | MISCELANIOUS LAB | | | [phone] | + +---------+ + + documented in [...]
--- OUTSIDE RECORDS SUMMARY | ~2019-10-19 | XMS | Clinical Summary ---
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 [[facility] | | Health and Services Provider Handbook [...] Garcia on | | 03/29/2012. Pathological specimen [id number] was analyzed by | | Liu Bowers M.D. of [facility] and was notable | | for a poorly-differentiated adenocarcinoma of the gallbladder. | | Liver biopsy was performed at the same time of the procedure and | | demonstrated portal inflammation.2. On 04/26/2012, she | | successfully underwent a R0 resection by Dr. Tai Stanton, of | | the [facility]. Pathological specimen | | [id number] was notable for the absence of any residual | | carcinoma within the gallbladder bed; however, 2/8 regional lymph | | nodes were positive for regionally metastatic disease.3. | | Consultation with Dr. Elva Grey of the [facility] and | | [facility] on 05/17/2012, which returned the [...] Dr. Miguel Henderson of the | | [facility] [place]. 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 However, 122 of the remaining genes | | analyzed in the assay were all wild type.7. Repeat consultation | | with Dr. Elva Grey of the [facility] [place] | | on 06/26/2014 returned the recommendation for additional | | chemotherapy with cisplatin at 75 mg/m2 on day 1 with gemcitabine | | at 1250 mg/m2 on day-1 and day-8 of the every 21-day cycle for | | 6-8 cycles. This was followed by a second opinion by Dr. Quiroz | | Jeovany of the [facility] [place] who recommended | | chemotherapy with cisplatin [...] recommendations of Dr. Richie Thayer of the [facility] | | [place] with gemcitabine at 1000 mg/m2 on day-1 and day-8 with | | cisplatin 25 mg/m2 on day-1 and day-8 of the every 21-day cycle, | | beginning on 07/26/2014. Chemotherapy was complicated by grade 3 | | neutropenia without fever a grade 3 thrombocytopenia without | | bleeding.10. Repeat CT scan of the abdomen and pelvis on | | 09/16/2014 at the [facility] in [facility] | | [place], demonstrated stable postoperative changes involving | | [...] the chest, abdomen, and pelvis at the [facility] in [place], [place], | | demonstrated stable postoperative changes [...] abdomen, and | | pelvis at the [facility] in [place], [place], on | | 06/23/2015 demonstrating postoperative changes in the right upper | | quadrant. No evidence of recurrence or any evidence of | | metastatic disease.15. Repeat CT scan of the chest, abdomen, and | | pelvis at the [facility] in [place], [place], on | | 09/24/2015 demonstrating right upper quadrant post-surgical | | changes. No evidence of recurrent neoplasm. Interval development | | of a small hernia containing bowel and fat 3 cm above the | | umbilicus.16. Repeat CT scan of the abdomen and pelvis on | | 12/22/2015 at the [facility] in [place], [place], | | demonstrating a 1.5 cm soft tissue nodule just inferior to the | | liver within the mesentery on the right. In addition, there were | | tiny nodules in the bilateral upper quadrants.17. PET CT scan at | | [facility] in [place], [place], on 12/31/2015 | | demonstrating benign findings. The nodularity along the omental | | fat along the left colon and liver tail showed no abnormal | | uptake.18. Presentation to the [facility] Emergency | | Room on 03/15/2016 [...] | Repeat CT scan of C/A/P at [facility] on July 01, 2016 | | [...] | | contrast, October 06, 2016, at [facility] in [facility] | | [place], demonstrated no evidence of recurrence or metastatic | | disease. Aura continued on observation without treatment.23. | | Repeat CT scan of the chest/abdomen/pelvis at [facility] demonstrated progression of disease and | [...] will see Dr. Richie Thayer at the [facility] | [facility] [place]. 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 Followed by | | Ellyn at [facility] in [place]. | | -04/26/2012: R0 Resection. -05/31/2012-09/03/2012 | [...] | + + + + | INFLUENZA, [id number], | 04/14/2009 | | | UNSPECIFIED | [...] | | | | | [place] [address] | | | | | | [phone] | | | | | | | [...] | | ROBERT | | 06/28/ | [id number] | | - SnaImplanted: Qty: 1 on | | | [employer] | | 2020 | /NA | | 11/29/2018 by Pedro Green | | | - ROBERT | | | /[id number] | | DO Alessandra at [facility] | | | | | | 02 | | [facility] | | | | | | | + +-------+--------+ +--------+--------+--------+ | [employer] Ureteral Stent | Stent | Left: | COOK | | 09/06/ | [facility]-72 | | And PositionerImplanted: Qty: | | Ureter | [employer] | | 2021 | 4-R, | | 1 on 04/27/2019 by Peter, | | | - ROBERT | | | [id number] | | Pedro Aparicio DO at [facility] | | | | | | /NA | | | | | | | | /[id number] | | | | | | | | 29 | + +-------+--------+ +--------+--------+--------+ | Stent Uro Unvrs Frm 7fr 24cm | | Left: | COOK | | 11/12/ | [id number] | | - SnaImplanted: Qty: 1 on | | Ureter | [employer] | | 2019 | /NA | | 07/05/2018 by Pedro Green | | | - ROBERT | | | /[id number] | | DO Alessandra | | | [...] the | | | | PDT | ([facility]) | results section. | + +--------+ + + + | COMPREHENSIVE | STAT | 08/01/2019 | Gallbladder | Results for this | | METABOLIC PANEL | | 9:02 AM | cancer, carcinoma | procedure are in the | | | | PDT | ([facility]) | results section. | + +--------+ + [...] + | Performed at: 01 - [address] [place] [address], | REFERENCE LAB | | [place], [place] [address] Phone Technician: Ad Larose MD, Phone: | [facility] | | [phone] | | + + + + + + + + | Performing | Address | City/State/Zipcode | Phone Number | | Organization | | | | + + + + + | REFERENCE LAB | [address] | [place], [place] | [phone] | | [facility] | [facility] | [address] | | + + + + + [...] [address] | [place] | [phone] | | [facility] | | [address] | | | - LABORATORY | | [...] in use as of March | | [facility] | | | | 2018. [...] [address] | [place] | [phone] | | [facility] | | [address] | | | - LABORATORY | | [...] | [address] | [place] | [phone] | | [facility] | | [address] | | | - LABORATORY | | [...] | mL/min/1.73m2 | YOMAIRA | | | Kazakh | RATE,ESTIMATED | | MEDICAL | | | | mL/min/1.11j8Jntd than | | CENTER - | | [...] [address] | [place] | [phone] | | [facility] | | [address] | | | - LABORATORY | | [...] +--------+ +--------+-------+---------+--------+ | BCBS | BCBS | [id number] | 02/14/19 | | | PPO | | | FEDERA | | 16-Pre | | | | | | L FEP | | sent | | | | + +--------+ +--------+-------+---------+--------+ | BCBS | BCBS | [id number] | 02/14/19 | | | PPO | | | FEDERA | | 16-Pre | | | | | | L FEP | | sent | | | | + +--------+ +--------+-------+---------+--------+ | [employer] [facility] | IHS | [id number] | 02/14/19 | | | Indemn | | SERVICE | YELLOW | | 13-Pre | | | ity | | | HAWK | | sent | | | | + +--------+ +--------+-------+---------+--------+ | [employer] | IHS | [id number] | 02/14/19 | | | Indemn | [...] Person | Self | [birth year] | | [address] | | | al/Fam | | 1961 | [phone] | [place] [address] | | | jose alejandro | | | 5 (Home) | | | | | | | [phone] | | | | | | | 6 (Work) | | + +--------+ +--------+ + + | Aura Upton | Person | Self | [birth year] | | [address] | | | al/Fam | | 1961 | [phone] | [place] [address] | | | jose alejandro | | | 5 (Home) | | + +--------+ +--------+ + + | Aura Upton | Person | Self | [birth year] | | [address] | | | al/Fam | | 1961 | [phone] | [place] [address] | | | jose alejandro | | | 5 (Home) | | + +--------+ +--------+ + + Advance Directives + + + + + | Type | Date Recorded | Patient | Explanation | | | | Corporate Safety Manager | | + + + + + | Power of | | | | | Freight Car Cleaner | | | | + + + [...]
--- OUTSIDE RECORDS SUMMARY | ~2019-10-19 | XMS | Encounter Summary ---
Demographics + + + | Address | [address] | | | [place] [address] | + + + | Home Phone [...] + | Author | [facility] | | | and [place] | + + + | Organization | [facility] | | | and [place] | + + + | Address | Unknown | + + + | Phone | Unavailable | + + + Support + + + + + | Name | Relationship | Address | Phone | + + + + + | Poncho Oquendo | ECON | [address] | | | | | [place] | | | | | [address] | | + + + + + | Marta Upton | ECON | [place] | | | | | [address] | | + + + + + Care Team Providers + +------+ + | Care Patient Educator Name | Role | Phone | + [...] EMANUEL | | | | | [address] | [place] [address] | | | | | [place] [address] | [phone] | | | | | [phone] | | | +--------+ + + + [...] | | | | | [place] [address] | | | | | | [phone] | | | | | | | | +--------+---------+ + + + documented as of this encounter Visit Diagnoses Not on filedocumented in this encounter"
--- OUTSIDE RECORDS SUMMARY | ~2019-10-19 | XMS | Encounter Summary ---
Demographics + + + | Address | [address] | | | [place] [address] | + + + | Home Phone [...] Providers + +------+ + | Care Metal Expediter Name | Role | Phone | + [...] at [facility] [address] | [address] [facility] | | | | | [facility] | [facility] | | | | | for [facility] and | [place], [place] | | | | | [facility], [place] [address] | [address] | | | | | [place], [place] | [phone] | | | | | [address] | | | | | | [phone] | | | +--------+ + + + [...] with 0 refills authorized, arranged [facility]. Patient to take as prescribed, RN discussed [...] refill policy. Please send new Rx to: [facility] [address] [place], [place] [address] [phone] signed by Willie Alva at 05/11/2012 9:19 AM PDTdocumented in this encounter Plan of Treatment Not on filedocumented as of this encounter Visit Diagnoses Not on filedocumented in this encounter"
--- OUTSIDE RECORDS SUMMARY | ~2019-10-19 | XMS | Encounter Summary ---
Demographics + + + | Address | [address] | | | [place] [address] | + + + | Home Phone [...] Team Providers + +------+ + | Care Splicer Apprentice Name | Role | Phone | [...] [address] | | | | [address] [place], [place] | [address] | | | | | [address] | [place] [address] | | | | | | [phone] | | | | | | | [...]
--- OUTSIDE RECORDS SUMMARY | ~2019-10-19 | XMS | Encounter Summary ---
Demographics + + + | Address | [address] | | | [place] [address] | + + + | Home Phone [...] Team Providers + +------+ + | Care Cant Gang Sawyer Name | Role | Phone | [...] Pharmacy | | | | | | [address] | | | | | | Loop [place], [place] | | | | | | [address] | | | | | | [phone] | | | +--------+ + + + [...]
--- OUTSIDE RECORDS SUMMARY | ~2019-10-19 | XMS | Encounter Summary ---
Demographics + + + | Address | [address] | | | [place] [address] | + + + | Home Phone [...] Team Providers + +------+ + | Care Hammer Operator Name | Role | Phone | [...] | | [address] | [facility], | | | | | [address] | [place] [address] | | | | | Pavilion, [facility] floor | [phone] | | | | | [place], [place] | | | | | | [address] | | | | | | [phone] | | | +--------+ + + + [...] Aura Upton was reviewed at the [facility] on 06/14/2014 Back End Web Developer Oncology Provider: Dr. Henderson Surgery: Ex lap, [...] sent to Cytology: - Please see corresponding [id number] B: Left ovary and fallopian tube, salpingo-oophorectomy: [...] excised lymph nodes from the gallbladder bed ([id number], slides E3-4). Additionally, immunohistochemical staining on the left ovarian tumor shows the cells to be positive for CDX-2, consistent with gastrointestinal origin. Case seen by: Jose Covarrubias M.D./Surgical Pathology Resident Michael Smith M.D./Pathologist /rdl (Analyte specific reagents are used in many laboratory tests necessary for standard medical care. This test was developed and its performance characteristics determined by [facility] [employer]. It has not been cleared or approved [...] Obstetrics & Gynecology Gynecologic Oncology Service Pager [phone] documented in this encou nter Plan of Treatment Not on filedocumented as of this encounter Visit Diagnoses Not on filedocumented in this encounter
--- OUTSIDE RECORDS SUMMARY | ~2019-10-19 | XMS | Encounter Summary ---
Demographics + + + | Address | [address] | | | [place] [address] | + + + | Home Phone [...] Providers + +------+ + | Care Supervisor Beam Department Name | Role | Phone | + +------+ + | Valeriy Carmona MD | PCP | | + +------+ + Reason for Visit + +--------+ + | Reason | Onset | Comments | | | Date | | + +--------+ + | Telephone follow-up | 05/10/ | Pt requested reports be sent to outside | | | 2012 | | + +--------+ + Encounter Details +--------+ + + + + | Date | Type | Department | Care Team | Description | +--------+ + + + + | 05/10/ | Telephone | Digestive Health | Tai Stanton, | Telephone follow-up | | 2012 | | [place] [address] [address] | [address] [facility] | (Pt requested | | | | [facility] | [address] | reports be sent to | | | | [facility] and | [place], [place] | outside ) | | | | [facility] [address] | [address] | | | | | [place], [place] | [phone] | | | | | [address] | | | | | | [phone] | | | +--------+ + + + [...] this encounter Miscellaneous Notes Telephone Encounter - Kay Naqvi - 05/10/2012 3:05 PM PDTI called pt back to tell her I sent the requested reports to Tomasa Wagner MD on 05/10/12 @ 8130, left a VM. elephone Encounter - Epifanio Trujillo - 04/15 12:27 PM PDTPatient states that she would like to have her operative and pathology re ports sent to Tomasa Wagner at [place]. So she can have referral [facility] [phone]. Patient asked that she be called after r ecords are sent documented in this encounte r Plan of Treatment Not on filedocumented as of this encounter Visit Diagnoses Not on filedocumented in this encounter"
--- OUTSIDE RECORDS SUMMARY | ~2019-10-19 | XMS | Encounter Summary ---
Demographics + + + | Address | [address] | | | [place] [address] | + + + | Home Phone [...] + | Poncho Oquendo | ECON | [address] | | | | | [place] | | | | | [address] | | + + + + + | Marta Upton | ECON | [place] | | | | | [address] | | + + + + + Care Team Providers + +------+ + | Care Towel Sorter Name | Role | Phone | [...] + + | 12/10/ | Telephone | [facility] | Re[place], | Other | | 2014 | | MED CTR MEDICAL | Epifanio Soler MD 9[address] | | | | | ONCOLOGY CLINIC 401 | [facility] | | | | | [address] | [address] [place], [place] | | | | | [place] [address] | [address] | | | | | [phone] | | | +--------+ + + + [...] and she will pick it up in [place]. Please ask him. Thank you. documented in this encounter Plan of Treatment +--------+---------+ + + + | Date | Type | Specialty | Care Team | Description | +--------+---------+ + + + | 10/29/ | Office | Urology | Pedro Green, | | | 2019 | Visit | | DO [address]ish[address] | | | | | | [place] [address] | | | | | | [phone] | | | | | | | | +--------+---------+ + + + documented as of this encounter Visit Diagnoses Not on filedocumented in this encounter"
--- OUTSIDE RECORDS SUMMARY | ~2019-10-19 | XMS | Encounter Summary ---
Demographics + + + | Address | [address] | | | [place] [address] | + + + | Home Phone [...] Providers + +------+ + | Care Cabin Crew Name | Role | Phone | + [...] [facility] [address] | [address] | | | | | [facility] | [facility] | | | | | for Health and | [place], [place] | | | | | [facility], [place] [address] | [address] | | | | | [place], [place] | [phone] | | | | | [address] | | | | | | [phone] | | | +--------+ + + + [...]
--- OUTSIDE RECORDS SUMMARY | ~2019-10-19 | XMS | Encounter Summary ---
Demographics + + + | Address | [address] | | | [place] [address] | + + + | Home Phone [...] + | Poncho Oquendo | ECON | [address] | | | | | [place] | | | | | [address] | | + + + + + | Marta Upton | ECON | [place] | | | | | [address] | | + + + + + Care Team Providers + +------+ + | Care Cigar Head Puncher Name | Role | Phone | [...] [facility] | Epifanio Soler MD 6974 | (HCC) (Primary Dx) | | | | ONCOLOGY CLINIC 401 | [facility] | | | | | [address] | [address] [place], [place] | | | | | [place] [address] | [address] | | | | | [phone] | | | +--------+ + + + [...] [address] | | | | | | [place] [address] | | | | | | [phone] | | | | | | | | +--------+---------+ + + + documented as of this encounter Visit Diagnoses + + | Diagnosis | + + | 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
--- OUTSIDE RECORDS SUMMARY | ~2019-10-19 | XMS | Encounter Summary ---
Demographics + + + | Address | [address] | | | [place] [address] | + + + | Home Phone [...] Team Providers + +------+ + | Care Classroom Instructional Aide Name | Role | Phone | [...] | Medicine Clinic at | [address] | (Primary Dx); | | | | [facility] 4th Floor [address] | [address] [place], | Gallbladder cancer | | | | [address] | [place] [address] | ([facility]); Other | | | | Mailcode: [facility] | [phone] | specified | | | | [facility] | | pre-operative | | | | and Healing, | | examination | | | | Building 1,4th Floor | | | | | | [place], [place] | | | | | | [address] | | | | | | [phone] | | | +--------+---------+ + + + [...] by | | D - | | Genveieve Acosta, | Marina Borges RN | | [...] Surgery Check in Locations Day Stay Unit [facility], fourth floor Room 9258 [facility] Day Stay [facility] [facility], fourth floor Admitting [facility], ninth floor [facility] Surgery Unit [facility], sixth floor Surgery Check in Time: The [...] is after office hours, call the [facility] cork pressing machine operator at [phone] and ask them to page him or h er. Preparing For Your Surgery Video -- 7 minutes of instructions! If you have access to the Internet and would like to review our instructional video about g etting ready for your procedure day, please follow these directions: Access the [facility] website [email or web address] --> POPULAR RESOURCES --> Patient Guide --> [...] further investigation and manageme nt. A. Acute NC within 7 days: no B. Unstable angina/Recent NC (7- 30 days): no C. Decompensated CHF: [...] no Rate of cardiac , non fatal NC, non fatal cardiac arrest (RCRI) 0 risk [...] this patient's care. JAYLA BARRON NP [facility] PREOPERATIVE MEDICINE CLINIC [facility] [place] [address] I spent 20 minutes with [...] | + +--------+ + + + | NC COLLECTION VENOUS | Routin | 04/27/2012 | [...] | | | LABORATORY | | | [facility] | | | SERVICES, | | | [...] [facility] | [address] | [place] [address] | | | SERVICES, CORE | NEAL [...] + + + + + | [facility] LABORATORY | [address] | [place] [address] | | | SERVICES, | [address] [...] + + + + + | [facility] LABORATORY | [address] | [place] [address] | | | SERVICES, | [address] [...] view image for the detailed interpretation from [employer] results. | CARDIOLOGY | + + + + + + + + | Performing | Address | City/State/Zipcode | Phone Number | | Organization | | | | + + + + + | [facility] | [address] [facility] | [place], [place] | | | CARDIOLOGY | [address] | [address] | | + + + + + HEMOGLOBIN A1C, POC (04/27/2012 3:13 PM PDT) + +-------+ + + + | Component | Value | Ref Range | Performed | Pathologist | | | | | At | Signature | + +-------+ + + + | HEMOGLOBIN | 5.1 | 4.0 - 5.7 % | [facility], | | | A1C,POC | | | [...] + + | [facility] | [address] [facility] | [place] [address] | | | OF CARE TESTS | [...]
--- OUTSIDE RECORDS SUMMARY | ~2019-10-19 | XMS | Encounter Summary ---
Demographics + + + | Address | [address] | | | [place] [address] | + + + | Home Phone [...] + | Poncho Oquendo | ECON | [address] | | | | | [place] | | | | | [address] | | + + + + + | Marta Upton | ECON | [place] | | | | | [address] | | + + + + + Care Team Providers + +------+ + | Care Pediatric Neurologist Name | Role | Phone | + +------+ + PCP | Unavailable | + +------+ + Encounter Details +--------+ + + + + | Date | Type | Department | Care Team | Description | +--------+ + + + + | 09/28/ | Hospital | [facility] | | | | 2012 | Encounter | MED CTR XRAY [address] | | | | | | [place] | | | | | | [place] [address] | | | | | | [phone] | | | +--------+ + + + [...] | | | | | [place] [address] | | | | | | [phone] | | | | | | | [...] + + | [facility] | [place] | | Department [address] [place] [address] | [facility] | | [ rep [address]] [ rep [facility] | | st zip] Signed | - IMAGING | | | | | Patient Name: AURA UPTON Physician: | | | SHEP.20 : 1960 Age: 51 Sex: F Unit #: [id number] | | | Exam Date: 09/28/12 [place] [facility] | | | Report #: [id number] Page: | | | %(RAD)RES..mtdd.print.filter("pg") of %(RAD) | | | RES..mtdd.print.filter("tpg") | | | | | | Accession Number: [id number] | | | ABDOMINAL ULTRASOUND, 09/28/2012 CLINICAL [...] | | | demonstrates increased echogenicity, likely retail wireless sales representative of fatty | | | [...] Transcribed | | | Date/Time: 09/28/2012 12:53 Film Process Operator: | | | <<Signature on File>> | | | Jj | | | MD Franck09/28/12 2019 <Electronically signed by Jj Juárez MD> | | | Jj Juárez MD 09/28/12 1230 Film Process Operator: Catarino | | | Ypjbdpjvxhseu89/15/13 1253 Tai Stanton MD | | | Tej Boyce DO | | + + + + + + + + | Performing | Address | City/State/Zipcode | Phone Number | | Organization | | | | + + + + + | [facility] | [address] | [place] | [phone] | | [facility] | | [address] | | | - IMAGING | | | | + + + + + XR Abdomen AP (09/28/2012 10:03 AM PDT) + + | Specimen | + + | | + + + + + | Narrative | Performed At | + + + | Accession Number: [id number] ABDOMINAL ULTRASOUND, | | | 09/28/2012 CLINICAL [...] demonstrates increased | | | echogenicity, likely retail wireless sales representative of fatty infiltration. There is [...] Transcribed | | | Date/Time: 09/28/2012 12:53 Film Process Operator: | | | <<Signature on File>> | | | Jj | | | MD Franck09/28/12 2019 <Electronically signed by Jj Juárez MD> | | | Jj Juárez MD 09/28/12 1230 Film Process Operator: Catarino | | | Bydzpbgbnazzj86/15/13 1253 MD Tej Ramachandran DO | | | | | + + + + + | Procedure Note | + + | Edmundo Rad Results In - 07/07/2015 9:27 AM PDT Accession Number: [id number] | | ULTRASOUND, 09/28/2012 CLINICAL HISTORY: HISTORY [...] pancreas demonstrates increased | | echogenicity, likely retail wireless sales representative of fatty infiltration. There is [...] MD>Jj Juárez MD 09/28/12 | | 1230Transcriptionist: [place] Drzflxfdkuzbg36/15/13 1253Brett Nusrat Antonio, | | DO | [...] 12:30 | |Transcribed Date/Time: 09/28/2012 12:53 | |Film Process Operator: | | | | | | | |<<Signature on File>> | | | |Jj Juárez MD09/28/12 2019 | |<Electronically signed by Jj Juárez MD> | | | | | |Jj Juárez MD 09/28/12 8400 | |Film Process Operator: [place]lay Kjtbrkzdjqopy80/15/13 4733 | | | | | |Tai Stanton MD | |Tej Boyce DO | + + documented in this encounter Visit Diagnoses Not on filedocumented in this encounter
--- OUTSIDE RECORDS SUMMARY | ~2019-10-19 | XMS | Encounter Summary ---
Demographics + + + | Address | [address] | | | [place] [address] | + + + | Home Phone [...] Providers + +------+ + | Care Agricultural Education Professor Name | Role | Phone | + +------+ + | Tomasa Wagner | PCP | | + +------+ + Reason for Visit + +--------+ + | Reason | Onset | Comments | | | Date | | + +--------+ + | Scheduling | 06/24/ | | | | 2014 | | + +--------+ + | Returning Phone Call | 06/24/ | | | | 2014 | | + +--------+ + Encounter Details +--------+ + + + + | Date | Type | Department | Care Team | Description | +--------+ + + + + | 06/24/ | Telephone | [facility] | Tai Stanton, | Scheduling; | | 2014 | | Center at [facility] [address] | [address] [facility] | Returning Phone Call | | | | [facility] | [facility] | | | | | [facility] and | [place], [place] | | | | | [place] [address] | [address] | | | | | [place], [place] | [phone] | | | | | [address] | | | | | | [phone] | | | +--------+ + + + [...] this encounter Miscellaneous Notes Telephone Encounter - Sasha Hassan RN - 06/24/2014 2:33 PM PDTI spoke to Aura on the phone. I relayed to her that Dr. Stanton does not foresee surgery as an option at this time and as such we would like to cancel her clinic appointment for Tuesday and save her the long drive to [place]. Aura was displeased upon hearing this and stated the plan wa s for her to return to see Dr. Stanton if cancer recurred and she will be seeing Dr. Joseph valdes immediately before her appointment with Dr. Stanton. Aura did not wish to cancel her appointment with surgery at this time and desires to speak with Dr. Stanton directly about her current status. Appointment held for 06/26/14. elephone Encounter - Esperanza Costa - 06/24/2014 2:23 PM PDTPt returned call, Bharath RN call connected elephone Encounter - Sasha Hassan RN - 06/24/2014 1:09 PM PDTCalled patient and left confidential voice mail. (per chart record ok to leave detailed v oice mail) I stated that I have spoken to Dr. 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 We recommend following up with oncology for chemotherapy for this recurrence. We would like to cancel her appoint ment with Dr. Stanton this Tuesday06/26/14 and save her the trip of driving here when georgina beatriz is not feasible at this time. Clinic phone number provided. documented in this encounter Plan of Treatment Not on filedocumented as of this encounter Visit Diagnoses Not on filedocumented in this encounter"
--- OUTSIDE RECORDS SUMMARY | ~2019-10-19 | XMS | Encounter Summary ---
Demographics + + + | Address | [address] | | | [place] [address] | + + + | Home Phone [...] Author | [facility] | | | and [place] | + + + | Organization | [facility] | | | and [place] | + + + | Address | Unknown | + + + | Phone | Unavailable | + + + Support + + + + + | Name | Relationship | Address | Phone | + + + + + | Poncho Oquendo | ECON | [address] | | | | | [place] | | | | | [address] | | + + + + + | Marta Upton | ECON | [place] | | | | | [address] | | + + + + + Care Team Providers + +------+ + | Care Sales Intern Name | Role | Phone | [...] + + | 04/19/ | Telephone | [facility] | Pedro Green, | Other (Labs for | | 2019 | | UROLOGY [address] | DO [address] | Procedure) | | | | [address] | [place] [address] | | | | | [place], [place] | [phone] | | | | | [address] | | | | | | [phone] | | | +--------+ + + + [...] from roxanna Chavarria, she is currently at [facility] in [place] to get labs done, wanting to know wha t number to fax results to. Gave her our fax number [phone]. Per Aura she missed her preadmissions appointment. Spoke to Lanie at [facility] whom stated at the preadmissions appointm ent, the RN does NOT place orders, advised would need to come from the provider. [facility] will need results of labs faxed to [phone] attn: Tierney elephone Encounter - Ashley Nix - 07/2019 8:50 AM PSTLashae- Gildardo Ochoa, is calling regarding Other (Labs for Procedure) and would like a call back. Additional Call Details: Caller states patient is at [facility] in [place]. Is needi ng the labs for her 04/27/19 procedure. Please fax orders to [phone] as soon as possible . If this is a symptom based call, was patient offered triage? Not Applicable If this is a symptom based call and you were unable to immediately transfer the call to a jaclyn maradiaga bone process operator was caller made aware that if [...] | | | | | [place] [address] | | | | | | [phone] | | | | | | | | +--------+---------+ + + + documented as of this encounter Visit Diagnoses Not on filedocumented in this encounter"
--- OUTSIDE RECORDS SUMMARY | ~2019-10-19 | XMS | Encounter Summary ---
Demographics + + + | Address | [address] | | | [place] [address] | + + + | Home Phone [...] + | Poncho Oquendo | ECON | [address] | | | | | [place] | | | | | [address] | | + + + + + | Marta Upton | ECON | [place] | | | | | [address] | | + + + + + Care Team Providers + +------+ + | Care Claim Review Medical Director Name | Role | Phone | + +------+ + | Valeriy Carmona DO | TAWNYA | | + +------+ + Encounter Details +--------+ + + + + | Date | Type | Department | Care Team | Description | +--------+ + + + + | 09/16/ | Hospital | [facility] | Reinaldo, | Gallbladder cancer, | | 2015 | Encounter | MED CTR MEDICAL | Epifanio Soler MD [address] | carcinoma (HCC) | | | | ONCOLOGY CLINIC [address] | [address] [facility] | (Primary Dx); | | | | [address] [place] | [address] [place], [place] | Ovarian cyst; | | | | [place] [address] | [address] | Personal history of | | | | [phone] | | malignant neoplasm | | | [...] 2019 | Visit | | DO [address] | | | | | | [place] [address] | | | | | | [phone] | | | | | | | [...] [address] | [place] | [phone] | | [facility] | | [address] | | | - LABORATORY | | [...] [place] | | | | | | [address] | | | | + + + + + + + + | Specimen | + + | Blood specimen | | (specimen) | + + + + + + + | Performing | Address | City/State/Zipcode | Phone Number | | Organization | | | | + + + + + | [facility] | [address] | [place] [address] | [phone] | + + + + + Comprehensive [...] | | | | | mg/dL | [facility] | | | | | | MEDICAL | | | | | | CENTER - | | | | | | LABORATORY | | + + + + + + | eGFR, | >60Comment: GLOMERULAR | >=60 | [facility] | | | non- | FILTRATION | mL/min/1.73m2 | [facility] | | | [place]ian | RATE,ESTIMATED | | MEDICAL | | | | mL/min/1.86l4Disw than | | CENTER - | | [...] | | | | | mg/dL | [facility] | | | | [...] [address] | [place] | [phone] | | [facility] | | [address] | | | - LABORATORY | | [...] + | [facility] | [address] | [place] | [phone] | | [facility] | | [address] | | | - LABORATORY | | [...] [address] | [place] | [phone] | | [facility] | | [address] | | | - LABORATORY | | [...] | | | | | | [place] [address] | | | | + + + + + + + + | Specimen | + + | Blood specimen | | (specimen) | + + + + + + + | Performing | Address | City/State/Zipcode | Phone Number | | Organization | | | | + + + + + | [facility] | [address] | [place] [address] | [phone] | + + + + + [place] [...] ST. | [address] | [place], [place] | [phone] | | [facility] | | [address] | | | - LABORATORY | | [...]
--- OUTSIDE RECORDS SUMMARY | ~2019-10-19 | XMS | Encounter Summary ---
Demographics + + + | Address | [address] | | | [place] [address] | + + + | Home Phone [...] + | Poncho Oquendo | ECON | [address] | | | | | [place] | | | | | [address] | | + + + + + | Marta Upton | ECON | [place] | | | | | [address] | | + + + + + Care Team Providers + +------+ + | Care Electric Container Tester Name | Role | Phone | [...] + + | 04/26/ | Hospital | [facility] | | Gallbladder cancer, | | 2020 | Encounter | [facility] | | carcinoma (HCC); | | | | CENTER INTRA OP | | Obstruction of left | | | | [address] | | ureter | | | | [place], [place] | | | | | | [address] | | | | | | [phone] | | | +--------+ + + + [...] lasts more than a day, a fever [id number] (38 C), or trouble urinating. Date Last Reviewed: 02/15/201619999008-5361 [employer] [address] [place] [address], [place] [address]. All [facility] ts reserved. This information is not [...] out of the urethra Date Last Reviewed: 02/15/201619992447-8618 [employer] [address] [place] [address]. All righ ts reserved. This information is [...] might be different fr om the original. [facility] Primary Care Provider: No Physician on [...] this well. Her last exchange was at [facility] during a septic episode. Her [...] and replacement; Surgeon: Pedro Green DO; [place] [facility] [place] HYSTERECTOMY LIVER SURGERY OTHER SURGICAL HISTORY UNLISTED PROCEDURE ARTHROSCOPY OTHER SURGICAL HISTORY MEDIPORT INSERTION SINGLE OTHER SURGICAL HISTORY HARDWARE PRESENT OTHER SURGICAL HISTORY Left 07/05/2018 CYSTOSCOPY W/ URETERAL STENT PLACEMENT - Procedure: CYSTOSCOPY - STENT; Surgeon: Cheikh Green DO; Location: [facility]; Service: Urology; Laterality: Left; stent [...] teral stent placement Surgeon: Pedro Green DO Safety Deposit Clerk(s): SWETA Anesthesia: General LMA Estimated Blood Loss: [...] pause was performed. Following a preoperative pause, 21.5-Czech cystoscopic sheath with 30-degree lens was inse [...] was used to guide placement of the 7-Czech x 24 cm ureter al stent without [...] [address] | | | | | | [place] [address] | | | | | | [phone] | | | | | | | [...]
--- OUTSIDE RECORDS SUMMARY | ~2019-10-19 | XMS | Encounter Summary ---
Demographics + + + | Address | [address] | | | [place] [address] | + + + | Home Phone [...] Team Providers + +------+ + | Care Maxillofacial Prosthodontist Name | Role | Phone | + +------+ + | Tomasa Wagner | PCP | | + +------+ + Encounter Details +--------+ + + + + | Date | Type | Department | Care Team | Description | +--------+ + + + + | 07/11/ | Abstract | [facility] | Tai Stanton, | | | 2012 | | Center at [facility] [address] | [address] [facility] | | | | | [facility] | [facility] | | | | | for Health and | [place], [place] | | | | | [facility], [place] [address] | [address] | | | | | [place], [place] | [phone] | | | | | [address] | | | | | | [phone] | | | +--------+ + + + [...]
--- OUTSIDE RECORDS SUMMARY | ~2019-10-19 | XMS | Encounter Summary ---
Demographics + + + | Address | [address] | | | [place] [address] | + + + | Home Phone [...] | Author | [facility] | | | and [place] | + + + | Organization | [facility] | | | and [place] | + + + | Address | Unknown | + + + | Phone | Unavailable | + + + Support + + + + + | Name | Relationship | Address | Phone | + + + + + | Poncho Oquendo | ECON | [address] | | | | | [place] | | | | | [address] | | + + + + + | Marta Upton | ECON | [place] | | | | | [address] | | + + + + + Care Team Providers + +------+ + | Care Seismic Interpreter Name | Role | Phone | [...] SR | | | | | [address] [facility] | | | | | | [place], [place] | | | | | | [address] | | | | | | [phone] | | | +--------+ + + + [...] [address] | | | | | | [place] [address] | | | | | | [phone] | | | | | | | [...]
--- OUTSIDE RECORDS SUMMARY | ~2019-10-19 | XMS | Encounter Summary ---
Demographics + + + | Address | [address] | | | [place] [address] | + + + | Home Phone [...] | Poncho Omar Oquendo | ECON | [address] | | | | | [place] | | | | | [address] | | + + + + + | Marta Upton | ECON | [place] | | | | | [address] | | + + + + + Care Team Providers + +------+ + | Care Card Boxer Name | Role | Phone | + [...] | | | LABS/PORT | | [place] [address] | | | | | AND 4 HR RX | | Phone: | | | | | Procedures | | [phone] | | | | | LA OFFICE | | Fax: | | | | | OUTPATIENT | | [phone] | | | | | VISIT 25 [...] + + | 07/31/ | Hospital | [facility] | Vladimir Robles, | Gallbladder cancer, | | 2019 | Encounter | MED CTR MEDICAL | MD Alanna BURRELL | carcinoma (HCC) | | | | ONCOLOGY CLINIC [address] | [address] [place] | (Primary Dx) | | | | [address] [place] | [place] [address] | | | | | [place] [address] | [phone] | | | | | [phone] | | | +--------+ + + + [...] fr om the original. Hematology-Oncology Progress Note [facility] Pt. Name/Age/: Aura Upton 58 y.o. 1960 CSN: [id number] Date of service: 08/01/2019 Provider: Vladimir Robles [...] this chart may have been created with [employer] voice recognition software. 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
--- OUTSIDE RECORDS SUMMARY | ~2019-10-19 | XMS | Encounter Summary ---
Demographics + + + | Address | [address] | | | [place] [address] | + + + | Home Phone [...] Team Providers + +------+ + | Care Dobie Worker Name | Role | Phone | [...] Francesco | | | | | at [facility] | [facility] | | | | | [address] | [place] [address] | | | | | [address] | | | | | | [place], 2nd floor | | | | | | [place], [place] | | | | | | [address] | | | | | | [phone] | | | +--------+ + + + [...] view image for the detailed interpretation from [employer]: [employer] results. | CARDIOLOGY | + + + + + + + + | Performing | Address | City/State/Zipcode | Phone Number | | Organization | | | | + + + + + | [facility] | [address] | [place], [place] | | | CARDIOLOGY | [facility] | [address] | | + + + + + documented in this encounter Visit Diagnoses Not on filedocumented in this encounter
--- OUTSIDE RECORDS SUMMARY | ~2019-10-19 | XMS | Encounter Summary ---
Demographics + + + | Address | [address] | | | [place] [address] | + + + | Home Phone [...] Team Providers + +------+ + | Care Horse Trader Name | Role | Phone | + [...] | 2015 | Encounter | [facility] | [address] | Movement What Is My | | | | [address] | [facility] | Next Step? | | | | [address] | [place], [place] | | | | | Alexis, [facility] floor | [address] | | | | | [place], [place] | [phone] | | | | | [address] | | | | | | [phone] | | | +--------+ + + + [...]
--- OUTSIDE RECORDS SUMMARY | ~2019-10-19 | XMS | Encounter Summary ---
Demographics + + + | Address | [address] | | | [place] [address] | + + + | Home Phone [...] Team Providers + +------+ + | Care Asphalt Tamping Machine Operator Name | Role | Phone [...] | 2014 | Encounter | [facility] | [address] | | | | | [address] | [address] | | | | | [address] | [place], [place] | | | | | Alexis, [facility] floor | [address] | | | | | [place], [place] | [phone] | | | | | [address] | | | | | | [phone] | | | +--------+ + + + [...]
--- OUTSIDE RECORDS SUMMARY | ~2019-10-19 | XMS | Encounter Summary ---
Demographics + + + | Address | [address] | | | [place] [address] | + + + | Home Phone [...] Author | [facility] | | | and [place] | + + + | Organization | [facility] | | | and [place] | + + + | Address | Unknown | + + + | Phone | Unavailable | + + + Support + + + + + | Name | Relationship | Address | Phone | + + + + + | Poncho Oquendo | ECON | [address] | | | | | [place] | | | | | [address] | | + + + + + | Marta Upton | ECON | [place] | | | | | [address] | | + + + + + Care Team Providers + +------+ + | Care Sheet Metal Duct Installer Helper Name | Role | Phone [...] + + | 06/17/ | Telephone | [facility] | Reinaldo, | Other | | 2016 | | MED CTR MEDICAL | Chad Soler MD [address] | | | | | ON[facility]OGY CLINIC [facility] | [facility] | | | | | [address] | [address] [place], [place] | | | | | [place] [address] | [address] | | | | | [phone] | | | +--------+ + + + [...] Sonia Renae RN - 06/17/2016 [facility] requested and received [...] [address] | | | | | | [place] [address] | | | | | | [phone] | | | | | | | | +--------+---------+ + + + documented as of this encounter Visit Diagnoses Not on filedocumented in this encounter"
--- OUTSIDE RECORDS SUMMARY | ~2019-10-19 | XMS | Encounter Summary ---
Demographics + + + | Address | [address] | | | [place] [address] | + + + | Home Phone [...] + | Author | [facility] | | | and [place] | + + + | Organization | [facility] | | | and [place] | + + + | Address | Unknown | + + + | Phone | Unavailable | + + + Support + + + + + | Name | Relationship | Address | Phone | + + + + + | Poncho Oquendo | ECON | [address] | | | | | [place] | | | | | [address] | | + + + + + | Marta Upton | ECON | [place] | | | | | [address] | | + + + + + Care Team Providers + +------+ + | Care Topstitcher Lockstitch Name | Role | Phone | [...] [facility] | Epifanio Soler MD [address] | | | | | ON[facility]OGY CLINIC [address] | [facility] | | | | | [address] | [address] [place], [place] | | | | | [place] [address] | [address] | | | | | [phone] | | | +--------+ + + + [...] | | | | | | [place] [address] | | | | | | [phone] | | | | | | | | +--------+---------+ + + + documented as of this encounter Visit Diagnoses Not on filedocumented in this encounter"
--- OUTSIDE RECORDS SUMMARY | ~2019-10-19 | XMS | Encounter Summary ---
Demographics + + + | Address | [address] | | | [place] [address] | + + + | Home Phone [...] Team Providers + +------+ + | Care Custom Frame Assembler Name | Role | Phone | [...] | | | Stay [address] | [place], [place] | testing; Pelvic | | | | [address] | [address] | mass; Other | | | | Mailcode: [id number] | [phone] | specified | | | | [facility] | | pre-operative | | | | [address] [place], [place] | | examination | | | | [address] | | | | | | [phone] | | | +--------+---------+ + + + [...] in this encounter Patient Instructions Patient Instructions Rachael Biswas MD - 05/28/2014 10:34 AM PDT PREOPERATIVE [...] or walk. Surgery check-in location: Admitting - [facility], ninth floor [facility] Surgery Check in Time: The Preoperative [...] it is after office hours, call the [facility] press operator apprentice at [phone] and ask them to page him or h er. documented in this encounter Progress Notes Martha Duggan MA - 05/28/2014 10:57 AM PDT Venipuncture performed in clinic, blood sample obtained from Right antecubital site Hemoglo bin A1C POCT performed during clinic visit. Blood sample obtained from venipuncture performe d to obtain other lab tests. AMO Rachael Carbajal MD - 05/28/2014 10:08 AM PDT PREOPERATIVE [...] Past Surgical History Procedure Date Tubal ligation 2003 section 1998 Endoscopic sinus surgery 2009 deviated septum Laparoscopic cholecystectomy 2012 Dilation and curettage 2001 miscarriage Dilation and curettage 2002 miscarriage Laparoscopic [...] Date RATE 65 04/27/2012 ATRIALRATE 65 04/27/2012 SC 142 04/27/2012 QRS 86 04/27/2012 QT 398 04/27/2012 QTC 413 04/27/2012 PAXIS 56 04/27/2012 RAXIS 36 04/27/2012 TAXIS 36 04/27/2012 EKGDX Value: Normal sinus rhythm Normal ECG "I have personally interpreted this report, e lopez alone or with a trainee." Confirmed by [...] surgery. According to ACC/AHA guidelines, the pa tient does not meet criteria for additional testing. Medication management recommendations: The patient was advised to continue all usual med ications except as noted in Patient Instructions (After Visit Summary given to pt) The patient is stable / optimized for surgery. Additional testing/optimization is not nee ded. Thank you for the opportunity to contribute to this patient's care. RACHAEL NGUYEN MD DEPUTY COURT[facility]ISEL [facility] DEPARTMENT OF MEDICINE DIVISION OF HOSPITAL MEDICINE PREOPERATIVE MEDICINE ROUTE SERVICE REPRESENTATIVE SERGEANT OF CORRECTIONS [address] [place] [address] [place] [address] documented in thi s encounter Plan of Treatment Not on filedocumented as of this encounter Procedures + +--------+ + + + | Procedure Name | Priori | Date/Time | Associated Diagnosis | Comments | | | ty | | | | + +--------+ + + + | SC COLLECTION VENOUS | Routin | 05/28/2014 | [...] | + + + + + | [facility] | [address] | [place] [address] | | | SERVICES, | [address] [...] [facility] | [address] | [place] [address] | | | SERVICES, | [address] [...] | included in the neutrophil count. | SERVICES, CORE | + + + + + + + + | Performing | Address | City/State/Zipcode | Phone Number | | Organization | | | | + + + + + | [facility] | [address] | [place] [address] | | | SERVICES, CORE | P[address] [...] [facility] | [address] | [place] [address] | | | SERVICES, CORE | PARK [...] | 30.3 | 26.0 - 36.0 | [facility] | | | | | seconds | [...] | + + + + + | [facility] | [address] | [place] [address] | | | SERVICES, CORE | PARK [...] | | | LABORATORY | | | BULGARIAN | | | SERVICES, | | | [...] Interpretive Information: <60 mL/min/1.73 sq m | SAM ALONSO | | Chronic Kidney Disease <15 mL/min/1.73 [...] | [facility] | [address] | [place] [address] | | | SAM ALONSO | NEAL [...] [facility] | [address] | [place], [place] | | | DG [facility] | [facility] | [address] | | | TESTS | | | [...]
--- OUTSIDE RECORDS SUMMARY | ~2019-10-19 | XMS | Encounter Summary ---
Demographics + + + | Address | [address] | | | [place] [address] | + + + | Home Phone [...] + | Poncho Oquendo | ECON | [address] | | | | | [place] | | | | | [address] | | + + + + + | Marta Upton | ECON | [place] | | | | | [address] | | + + + + + Care Team Providers + +------+ + | Care Technical Lead Name | Role | Phone | [...] + + | 11/29/ | Hospital | [facility] | Pedro Green, | Obstruction of left | | 2019 | Encounter | [facility] | DO [address] | ureter | | | | CARE FLOOR [address] | [place] [address] | | | | | [address] | [phone] | | | | | [place], [place] | | | | | | [address] | | | | | | [phone] | | | +--------+ + + + [...] out of the urethra Date Last Reviewed: 02/15/201619990857-8870 [employer]. [address] [place] [address], [place] [address]. All righ ts reserved. This information is [...] on your doctor's advice. Talk to your pet caretaker regarding the use of this medicine in children. Special care may be needed. What side effects may I notice from receiving this medicine? Side effects that you should report to your doctor or health customer care assistant as soon as p ossible: allergic reactions like skin rash, itching or hives, swelling of the face, lips, or tongue blue or purple color of the skin difficulty breathing fever less urine unusual bleeding, bruising unusual tired, weak vomiting yellowing of the eyes or skin Side effects that usually do not require medical attention (report to your doctor or health customer care assistant if they continue or are [...] if you have any of these conditions: ozobgej-8-vkjdentny dehydrogenase (G6PD) deficiency kidney disease an unusual or allergic reaction to phenazopyridine, other medicines, foods, dyes, or preser vatives or trying to get breast-feeding What should I watch for while using this medicine? Tell your doctor or health customer care assistant if your symptoms do not [...] pharmacist, or health care provider. Copyright 2019 [employer] Ciprofloxacin tablets Brand Name: Cipro What is [...] information carefully each time. Talk to your pet caretaker regarding the use of this medicine in children. Special care may be needed. What side effects may I notice from receiving this medicine? Side effects that you should report to your doctor or health customer care assistant as soon as p ossible: [...] attention (report to your doctor or health customer care assistant if they continue or are [...] watery. Check with your doctor or health customer care assistant if you get an attack of severe diarrhea, nausea and vomiting, or if you sweat a lot. The loss of too much body fluid can make it haile gerous for you to take this medicine. This medicine may affect blood sugar levels. If you have diabetes, check with your doctor o r health customer care assistant before you change your diet [...] signed by: Pedro Green DO, 11/29/2018 12:52 [facility] Pedro Hanley DO - 11/21/2018 10:30 AM PDT [facility] Urology Primary Care Provider: No [...] well. Her last excha nge was at [facility] during a septic episode. Her last CT [...] - STENT; Surgeon: Pedro Green DO; Location: [facility] MAIN [facility]; Service: Urology; Laterality: Left; stent [...] teral stent placement Surgeon: Pedro Green DO Director Of Materials(s): SWETA Anesthesia: General LMA Estimated Blood Loss: [...] dorsal lithotomy position. Following a preoperative pause, 21.5-Czech cystoscope sheath with 30-degree lens was insert [...] catheter was removed, allowing for placement of 7-Czech x 24 cm ureteral stent without strings [...] 2019 | Visit | | DO [address] | | | | | | [place] [address] | | | | | | [phone] | | | | | | | [...] | | | | | | longer, tkpiig-xou-xrjum use of | | | | | [...]
--- OUTSIDE RECORDS SUMMARY | ~2019-10-19 | XMS | Encounter Summary ---
Demographics + + + | Address | [address] | | | [place] [address] | + + + | Home Phone [...] Team Providers + +------+ + | Care Writing Tutor Name | Role | Phone | + [...] Francesco | | | | | at [facility] | [facility] | | | | | [address] | [place] [address] | | | | | [address] | | | | | | [place], 2nd floor | | | | | | [place], [place] | | | | | | [address] | | | | | | [phone] | | | +--------+ + + + [...] view image for the detailed interpretation from [employer] results. | CARDIOLOGY | + + + + + + + + | Performing | Address | City/State/Zipcode | Phone Number | | Organization | | | | + + + + + | [facility] | [address] | [place], [place] | | | CARDIOLOGY | [facility] | [address] | | + + + + + documented in this encounter Visit Diagnoses Not on filedocumented in this encounter
--- OUTSIDE RECORDS SUMMARY | ~2019-10-19 | XMS | Encounter Summary ---
Demographics + + + | Address | [address] | | | [place] [address] | + + + | Home Phone [...] + | Poncho Oquendo | ECON | [address] | | | | | [place] | | | | | [address] | | + + + + + | Marta Upton | ECON | [place] | | | | | [address] | | + + + + + Care Team Providers + +------+ + | Care Network Desktop Support Specialist Name | Role | Phone | [...] MED CTR PROVIDER | Epifanio Soler MD [address] | ([facility]) (Primary Dx) | | | | ONCOLOGY [address] [facility] | | | | | [place], | [address] | | | | | [place] [address] | [address] | | | | | [phone] | | | +--------+ + + + [...] | | | | | [place] [address] | | | | | | [phone] | | | | | | | | +--------+---------+ + + + documented as of this encounter Visit Diagnoses + + | Diagnosis | + + | 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
--- OUTSIDE RECORDS SUMMARY | ~2019-10-19 | XMS | Encounter Summary ---
Demographics + + + | Address | [address] | | | [place] [address] | + + + | Home Phone [...] Team Providers + +------+ + | Care Hog Operator Name | Role | Phone | [...] | Center at [address] | [address] [facility] | | | | | [facility] | [facility] | | | | | for [facility] and | [place], [place] | | | | | [facility], [facility] 2 | [address] | | | | | [place], [place] | [phone] | | | | | [address] | | | | | | [phone] | | | +--------+ + + + [...]
--- OUTSIDE RECORDS SUMMARY | ~2019-10-19 | XMS | Encounter Summary ---
Demographics + + + | Address | [address] | | | [place] [address] | + + + | Home Phone [...] + | Poncho Oquendo | ECON | [address] | | | | | [place] | | | | | [address] | | + + + + + | Marta Upton | ECON | [place] | | | | | [address] | | + + + + + Care Team Providers + +------+ + | Care Front Tender Name | Role | Phone | [...] Required | | Cholangiocar | [address] | Services [address] | | | | | cinoma (HCC) | [place] | [address] | | | | | | [place], [place] | [place], | | | | | | [address] | [place] [address] | | | | | | Phone: | Phone: | | | | | | [phone] | [phone] | | | | | | Fax: | Fax: | | | | | | [phone] | [phone] | +--------+ + + + + + Encounter Details +--------+ + + + + | Date | Type | Department | Care Team | Description | +--------+ + + + + | 07/02/ | Orders Only | [facility] | Marcelina Johnson, | Cholangiocarcinoma | | 2015 | | MED CTR CHEMO | RN | ([facility]) (Primary Dx) | | | | INFUSION [address] | | | | | [address] [place], | | | | | | [place] [address] | | | | | | [phone] | | | +--------+ + + + [...] [address] | | | | | | [place] [address] | | | | | | [phone] | | | | | | | [...]
--- OUTSIDE RECORDS SUMMARY | ~2019-10-19 | XMS | Encounter Summary ---
Demographics + + + | Address | [address] | | | [place] [address] | + + + | Home Phone [...] Team Providers + +------+ + | Care Plisse Machine Operator Name | Role | Phone [...] | | | | | | | [place], [place] | | | | | | | [address] | | | | | | | Phone: | | | | | | | [phone] | | | | | | | Fax: | | | | | | | [phone] | +--------+--------+ + + + + Encounter Details +--------+ + + + + | Date | Type | Department | Care Team | Description | +--------+ + + + + | 07/04/ | Hospital | [facility] | Virgilio Esquivel MD | | | 2008 | Encounter | STAY [address] | [address] | | | | | Katerina Mailcode: [facility] | Velma [place], | | | | | [facility] | [place] [address] | | | | | [facility], | [phone] | | | | | [facility] [address] | | | | | | [place], [place] | | | | | | [address] | | | | | | [phone] | | | +--------+ + + + [...] AM PDTAssociated Order(s): OPERATION RECORD; OPERATION RECORD [id number] [place]REDON[place] [id number] Date: 07/04/2008 Attending Surgeon: Virgilio Esquivel M.D. Credit Collection Specialist(s): Prudencio Fay MD Preoperative Diagnosis(es): Septal perforation, [...] cartilage on the left side, and a Orem was used to elevate the left mucoperichondrial flap. This was elevated above and below the level of the perforation and was taken past the bony cartilaginous junction superiorly and inferiorly. In order to gain additional exposure, the right side was approached in a similar fashion. Cartilaginous scoring was performed with a #15 blade followed by Orem elevation of mucoperichondrial flap. The portions of mucosa surrounding the perforation were then incised with a Orem. Additional mobilization of the bilateral mucoperichondrial mucoperiosteal [...] Facial Plastic and Reconstructive Surgery K / [id number] / [id number] / [id number] / angVirgilio MD - 2008 12:00 AM PDTAssociated Order(s): TEACHING PHYSICIAN; TEACHING PHYSICIAN [id number] [facility] [id number] Date: 07/04/2008 Attending Surgeon: Virgilio Esquivel M.D. Credit Collection Specialist(s): Prudencio Fay MD Preoperative Diagnosis(es): Nasal septal [...] Plastic and Reconstructive Surgery TDW / HS [id number] / [id number] / [id number] / ther, Faculty - 5:22 PM PDT [...] Performed At | + + + | [id number] | | | [id number] | | | [id number] [facility]RED[facility] [id number] | | | Date: 07/04/2008 Attending Surgeon: | | | Virgilio Esquivel M.D. Credit Collection Specialist(s): | | | Prudencio Fay MD Preoperative [...] left side, and | | | a Orem was used to elevate the left mucoperichondrial [...] performed with a #15 blade followed by Orem elevation of | | | mucoperichondrial flap. The portions of mucosa surrounding the | | | perforation were then incised with a Orem. Additional mobilization | | | of the [...] Surgery KRISTINA / AWA | | | [id number] / [id number] / [id number] / | | | | | + + + + + | Procedure Note | + + | Prudencio Fay MD - 07/04/2008 12:00 AM PDT [id number] | | [id number] EMERALD | | [place] [id number] Date: 07/04/2008 Attending Surgeon: | | Virgilio Esquivel M.D. Credit Collection Specialist(s): Prudencio Fay MD | | Preoperative Diagnosis(es):Septal [...] the cartilage on theleft side, and a Orem was | | used to elevate the left mucoperichondrial flap.This was elevated above and below the | | level of the perforation and wastaken past the bony cartilaginous junction superiorly | | and inferiorly. Inorder to gain additional exposure, the right side was approached in | | asimilar fashion. Cartilaginous scoring was performed with a #15 bladefollowed by Orem | | elevation of mucoperichondrial flap. The portions ofmucosa surrounding the perforation | | were then incised with a Orem.Additional mobilization of the bilateral | | mucoperichondrial [...] recovery room | | in goodcondition. Dr. Jacbosen was present during the procedure and directed the | | criticalportions of the case. MD Virgilio Sultana M.D.Facial Plastic | | and Reconstructive Surgery [facility] / [id number] / [id number] / [id number] / T: 07/06/2008 | | | |approached initially. A #15 blade was used to score the cartilage on the | |left side, and a Orem was used to elevate the left mucoperichondrial flap. | |This was elevated above and below the level of the perforation and was | |taken past the bony cartilaginous junction superiorly and inferiorly. In | |order to gain additional exposure, the right side was approached in a | |similar fashion. Cartilaginous scoring was performed with a #15 blade | |followed by Orem elevation of mucoperichondrial flap. The portions of | |mucosa surrounding the perforation were then incised with a Orem. | |Additional mobilization of the bilateral mucoperichondrial [...] | | | |MMK / HS | |[id number] / [id number] / [id number] / | | | | | | | | | | | | | | | | | | | | | + + TEACHING PHYSICIAN (07/04/2008 12:00 AM PDT) + + + | Narrative | Performed At | + + + | [id number] | | | [id number] | | | [id number] EM[place]D ARREDONDO [address] | | | Date: 07/04/2008 Attending Surgeon: | | | Virgilio Esquivel M.D. Credit Collection Specialist(s): | | | Prudencio Fay MD Preoperative [...] Surgery TDW / HS | | | [id number] / [id number] / [id number] / | | | | | + + + + + | Procedure Note | + + | Virgilio Esquivel MD - 07/04/2008 12:00 AM PDT [id number] | | [id number] [facility] | | [place] [id number] Date: 07/04/2008 Attending Surgeon: | | Virgilio Esquivel M.D. Credit Collection Specialist(s): Prudencio Fay MD | | Preoperative Diagnosis(es):Nasal [...] M.D.Facial Plastic and Reconstructive Surgery TD / [id number] / | | [id number] / [id number] / T: 07/04/2008 | | | | [...] | | | |TDW / HS | |[id number] / [id number] / [id number] / | | | | | | | | | | | | | | | | | | | | | + + documented in this encounter Visit Diagnoses Not on filedocumented in this encounter
--- OUTSIDE RECORDS SUMMARY | ~2019-10-19 | XMS | Encounter Summary ---
Demographics + + + | Address | [address] | | | [place] [address] | + + + | Home Phone [...] Providers + +------+ + | Care Ink Grinder Name | Role | Phone | + +------+ + | Prudencio Isaac MD | PCP | | + +------+ + Encounter Details +--------+ + + + + | Date | Type | Department | Care Team | Description | +--------+ + + + + | 04/24/ | Telephone | Digestive Health | Tai Stanton, | | | 2012 | | Center at [facility] [address] | [address] [facility] | | | | | [facility] | [facility] | | | | | for [facility] and | [place], [place] | | | | | [facility] [place] [address] | [address] | | | | | [place], [place] | [phone] | | | | | [address] | | | | | | [phone] | | | +--------+ + + + [...] [address] [place] [address] documented in this encounte r Plan of Treatment Not on filedocumented as of this encounter Visit Diagnoses Not on filedocumented in this encounter"
--- OUTSIDE RECORDS SUMMARY | ~2019-10-19 | XMS | Encounter Summary ---
Demographics + + + | Address | [address] | | | [place] [address] | + + + | Home Phone [...] + | Poncho Oquendo | ECON | [address] | | | | | [place] | | | | | [address] | | + + + + + | Marta Upton | ECON | [place] | | | | | [address] | | + + + + + Care Team Providers + +------+ + | Care It Support Manager Name | Role | Phone | [...] neoplasm of | Epifanio Soler, | [address] [place]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 | MD [address] | [place], | | | | | (HCC) | [place] | [place] [address] | | | | | Procedures | [address] | Phone: | | | | | [place] | OBED, | [phone] | | | | | DIPHENHYDRAM | [place] [address] | Fax: | | | | | INE HCL | Phone: | [phone] | | | | | INJECTIO, 50 | [phone] | | | | | | MG [place] | Fax: | | | | | | ONDANSETRON | [phone] | | | | | | HCL | | | | | | | INJECTION, 1 | | | | | | | MG [place] | | | | | | | DEXAMETHASON | | | | | | | E SODIUM | | | | | | | PHOS, 1 MG | | | | | | | [place] | | | | | | | FOSAPREPITAN | | | | | | | T INJECTION, | | | | | | | 1 MG TX | | | | | | | LORAZEPAM | | | | | | | INJECTION, 2 | | | | | | | MG [place] | | | | | | | GEMCITABINE | | | | | | | HCL | | | | | | | INJECTION, | | | | | | | 200 MG [place] | | | | | | | CISPLATIN 10 | | | | | | | MG | | | | | | | INJECTION | | | | | | | TX | | | | | | | METHYLPREDNI | | | | | | | SOLONE | | | | | | | INJECTION, | | | | | | | 125 MG [place] | | | | | | | ADRENALIN | | | | | | | EPINEPHRINE | | | | | | | INJECT, .1 | | | | | | | MG [place] | | | | | | | FILGASTIM | | | | | | | (ZARXIO) 300 | | | | | | | MCG/0.5ML | | | | | | | SOSY, PER 1 | | | | | | | MCG [place] | | | | | | | INJECTION, | | | | | | | FAMOTIDINE, | | | | | | | 20 MG [place] | | | | | | | NORMAL | | | | | | | SALINE | | | | | | | SOLUTION | | | | | | | INFUS, 500 | | | | | | | ML [place] | | | | | | | NORMAL | | | | | | | SALINE | | | | | | | SOLUTION | | | | | | | INFUS, 250 | | | | | | | ML TX | | | | | | | STERILE | | | | | | | WATER/SALINE | | | | | | | , 10 ML TX | | | | | | | CHEMOTHER, | | | | | | | IV PUSH,EA | | | | | | | ADD DRUG TX | | | | | | | CHEMOTHER, | | | | | | | IV INFUSION, | | | | | | | 1 HR TX | | | | | | | CHEMOTHER, | | | | | | | IV INFUSION, | | | | | | | EA HR TX | | | | | | | CHEMOTHER,NO | | | | | | | N-HORMONE | | | | | | | ANTI-NEOPL, | | | | | | | SUB-Q/IM TX | | | | | | | [...] + + | 05/20/ | Hospital | [facility] | Vladimir Robles, | Gallbladder cancer, | | 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 documented in this encounter Miscellaneous [...] [address] | | | | | | [place] [address] | | | | | | [phone] | | | | | | | [...]
--- OUTSIDE RECORDS SUMMARY | ~2019-10-19 | XMS | Encounter Summary ---
Demographics + + + | Address | [address] | | | [place] [address] | + + + | Home Phone [...] + | Poncho Oquendo | ECON | [address] | | | | | [place] | | | | | [address] | | + + + + + | Marta Upton | ECON | [place] | | | | | [address] | | + + + + + Care Team Providers + +------+ + | Care Pinking Sewing Machine Operator Name | Role | Phone | + +------+ + | No, Physician | PCP | Unavailable | + +------+ + Encounter Details +--------+ + + + + | Date | Type | Department | Care Team | Description | +--------+ + + + + | 04/22/ | Preadmit | [facility] | | | | 2020 | Visit | [facility]AL SUR[facility]ERY | | | | | | CENTER PREADMISSION | | | | | | [facility] [address] | | | | | | [place] | | | | | | [address] | | | | | | [phone] | | | +--------+ + + + [...] + + + documented in this encounter Miscellaneous Notes Preadmit Clinic Note - Hillary Santoyo RN - 04/23/2019 4:00 PM PDTAMBULATORY PRE-OPERATIVE I NSTRUCTIONS reviewed with patient. 4: 16 PM PDTdocumented in this encounter Plan of Treatment +--------+---------+ + + + | Date | Type | Specialty | Care Team | Description | +--------+---------+ + + + | 10/29/ | Office | Urology | Pedro Green, | | | 2019 | Visit | | DO [address]ish[address] | | | | | | [place] [address] | | | | | | [phone] | | | | | | | | +--------+---------+ + + + documented as of this encounter Visit Diagnoses Not on filedocumented in this encounter
--- OUTSIDE RECORDS SUMMARY | ~2019-10-19 | XMS | Encounter Summary ---
Demographics + + + | Address | [address] | | | [place] [address] | + + + | Home Phone [...] Providers + +------+ + | Care Security Risk Analyst Name | Role | Phone | + +------+ + | Tomasa Wagner | PCP | | + +------+ + Reason for Visit + + + | Reason | Comments | + + + | Medical Records | [facility] - OUTSIDE GUILHERME: Progress Notes 09/25/2013 [...] | | 2013 | | Center at [facility] [address] | [address] [facility] [address] | Review ([facility] - | | | | [facility] | [facility] | OUTSIDE REOCRDS: | | | | for Health and | [place], [place] | Progress Notes | | | | Healing, Building 2 | [address] | 09/25/2013 (f/u | | | | [facility] [place] | [phone] | chemo/radiation | | | | [address] | | therapy for | | | | [phone] | | cholangiocarcinoma) | | | | [...]
--- OUTSIDE RECORDS SUMMARY | ~2019-10-19 | XMS | Encounter Summary ---
Demographics + + + | Address | [address] | | | [place] [address] | + + + | Home Phone [...] Team Providers + +------+ + | Care Petrology Teacher Name | Role | Phone | [...] | | | Reconstructive | Velma Whitfield Dexter, | | | | | Services at [facility] | [place] [address] | | | | | [address] | [phone] | | | | | [facility] | | | | | | and Healing, | | | | | | Building 1, 5th | | | | | | Floor [place], [place] | | | | | | [address] | | | | | | [phone] | | | +--------+ + + + [...] 2008 7:24 AM To: Aura Upton Cc: [email or web address]; Radha Peñaloza Subject: RE: Request for Information Ms. Upton, thank you for your email. I just did a search and found [email or web address] website which describes the procedure. Hope this is helpful. Warm regards, Virgilio Buck MD | professor Facial Plastic and Reconstructive Surgery [facility] [phone] | [email or web address] This e-mail, facsimile, or letter and any [...] the sender. Thank you. From: Aura Upton [mailto:[email or web address]] Sent: Wednesday, June 11, 2008 9:09 AM To: Virgilio Buck Cc: [email or web address] Subject: Request for Information Dr. Buck: I [...]
--- OUTSIDE RECORDS SUMMARY | ~2019-10-19 | XMS | Encounter Summary ---
Demographics + + + | Address | [address] | | | [place] [address] | + + + | Home Phone [...] Providers + +------+ + | Care Field Research Associate Name | Role | Phone | + +------+ + | Valeryi Carmona MD | PCP | | + +------+ + Encounter Details +--------+ + + + + | Date | Type | Department | Care Team | Description | +--------+ + + + + | 07/25/ | [facility]Chart | [facility] | Miguel Seymour, | RE: Request for | | 2014 | Encounter | [facility] [place] | [address] | Return to Work | | | | [address] | [address] | Authorization? | | | | [address] | [place], [place] | | | | | Alexis, [facility] floor | [address] | | | | | [place], [place] | [phone] | | | | | [address] | | | | | | [phone] | | | +--------+ + + + [...]
--- OUTSIDE RECORDS SUMMARY | ~2019-10-19 | XMS | Encounter Summary ---
Demographics + + + | Address | [address] | | | [place] [address] | + + + | Home Phone [...] + | Poncho Oquendo | ECON | [address] | | | | | [place] | | | | | [address] | | + + + + + | Marta Upton | ECON | [place] | | | | | [address] | | + + + + + Care Team Providers + +------+ + | Care Senior Mobile Application Developer Name | Role | Phone [...] | | Carcinoma | Reinaldo, | [address] [place] | | | | | of opal | Epifanio Soler, | [place], | | | | | bladder | [address] | [place] [address] | | | | | (HCC) | RICARDA LINDQUIST | Phone: | | | | | Procedures | [address] | [phone] | | | | | CT Abdomen | OBED, | Fax: | | | | | Pelvis w | [place] [address] | [phone] | | | | | Contrast | Phone: | | | | | | | [phone] | | | | | | | Fax: | | | | | | | [phone] | | +--------+--------+ + + + + Encounter Details +--------+ + + + + | Date | Type | Department | Care Team | Description | +--------+ + + + + | 11/29/ | Orders Only | [facility] | Reinaldo, | Carcinoma of gall | | 2015 | | MED CTR PROVIDER | Epifanio Soler MD [address] | bladder (HCC) | | | | ONCOLOGY [address] RICARDA LINDQUIST [address] | (Primary Dx) | | | | [place], | [address] [place] | | | | | [place] [address] | [id number] | | | | | [phone] | | | +--------+ + + + [...] [address] | | | | | | [place] [address] | | | | | | [phone] | | | | | | | [...] ST. | [address] | [place] | [phone] | | [facility] | | [address] | | | - LABORATORY | | [...] | | | | | | [place] [address] | | | | + + + + + + + + | Specimen | + + | Blood specimen | | (specimen) | + + + + + + + | Performing | Address | City/State/Zipcode | Phone Number | | Organization | | | | + + + + + | [facility] | [address] | [place] [address] | [phone] | + + + + + Lactate [...] [address] | [place] | [phone] | | [facility] | | [address] | | | - LABORATORY | | [...] | non- | FILTRATION | mL/min/1.73m2 | [facility] | | | Ukrainian | RATE,ESTIMATED | | MEDICAL | | | | mL/min/1.84q5Ytmp than | | CENTER - | | [...] ST. | [address] | [place], [place] | [phone] | | [facility] | | [address] | | | - LABORATORY | | [...] LEYVA. 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
--- OUTSIDE RECORDS SUMMARY | ~2019-10-19 | XMS | Encounter Summary ---
Demographics + + + | Address | [address] | | | [place] [address] | + + + | Home Phone [...] Providers + +------+ + | Care Senior Economist Name | Role | Phone | + [...] [address] | | | | | [facility] | [place] [address] | | | | | Health and Healing, | [phone] | | | | | [facility] | | | | | | [place], [place] | | | | | | [address] | | | | | | [phone] | | | +--------+ + + + [...] istratively closed with the authorization of the [facility] Committee. elephone Encounter - James Bruon - 03/25/2016 10:00 A M PST----- Message [...]
--- OUTSIDE RECORDS SUMMARY | ~2019-10-19 | XMS | Encounter Summary ---
Demographics + + + | Address | [address] | | | [place] [address] | + + + | Home Phone [...] Team Providers + +------+ + | Care Drafting Supervisor Name | Role | Phone | + +------+ + | Valeriy Carmona MD | PCP | | + +------+ + Encounter Details +--------+ + + + + | Date | Type | Department | Care Team | Description | +--------+ + + + + | 12/23/ | Outside | UNKNOWN DEPARTMENT | Other, Faculty | | | 2018 | Records | [address] [facility] | [phone] | | | | | [address] | | | | | | [place], [place] | | | | | | [address] | | | +--------+ + + + [...]
--- OUTSIDE RECORDS SUMMARY | ~2019-10-19 | XMS | Encounter Summary ---
Demographics + + + | Address | [address] | | | [place] [address] | + + + | Home Phone [...] Author | [facility] | | | and [place] | + + + | Organization | [facility] | | | and [place] | + + + | Address | Unknown | + + + | Phone | Unavailable | + + + Support + + + + + | Name | Relationship | Address | Phone | + + + + + | Poncho Oquendo | ECON | [address] | | | | | [place] | | | | | [address] | | + + + + + | Marta Upton | ECON | [place] | | | | | [address] | | + + + + + Care Team Providers + +------+ + | Care Environmental Journalist Name | Role | Phone | + +------+ + | No, Physician | PCP | Unavailable | + +------+ + Encounter Details +--------+ + + + + | Date | Type | Department | Care Team | Description | +--------+ + + + + | 04/26/ | Hospital | [facility] | Pedro Green, | | | 2019 | Encounter | REGIONAL SURGERY | DO [address] | | | | | CENTER INTRA OP | [place] [address] | | | | | [address] | [phone] | | | | | [place], [place] | | | | | | [address] | | | | | | [phone] | | | +--------+ + + + [...] | Visit | | DO [address] | | | | | | [place] [address] | | | | | | [phone] | | | | | | | [...]
--- OUTSIDE RECORDS SUMMARY | ~2019-10-19 | XMS | Encounter Summary ---
Demographics + + + | Address | [address] | | | [place] [address] | + + + | Home Phone [...] Team Providers + +------+ + | Care Jde Developer Name | Role | Phone | + +------+ + | Tomasa Wagner | PCP | | + +------+ + Encounter Details +--------+ + + + + | Date | Type | Department | Care Team | Description | +--------+ + + + + | 06/28/ | Telephone | Digestive Health | Tai Stanton, | | | 2012 | | Center at [facility] [address] | [address] [facility] | | | | | [facility] | [facility] | | | | | for Health and | [place], [place] | | | | | [facility] [place] [address] | [address] | | | | | [place], [place] | [phone] | | | | | [address] | | | | | | [phone] | | | +--------+ + + + [...] Telephone Encounter - Amy Dinh RN - 06/30/2012 11:05 AM PDTRN reviewed plan of care w ith patient, patient will be evaluated locally if R sided pain continues to increase. Janise nt will contact RN if further questions or concerns. elephone Encounter - Amy Dinh RN - 06/30/2012 10:51 AM PD TRN reviewed refill request with Dr. Stanton, Vicodin 5/325, take 1 every 4 hours as needed #60 with 0 refills authorized, lidocaine and senna/docusate further authorized as prescribe d. If continues to have worsening pain, patient to be evaluated locally. Electronically si gned by Amy Dinh RN at 06/30/2012 10:53 AM PDTTelephone Encounter - Amy Dinh RN - 06/29/2012 5:43 PM PDTRN spoke with patient who states her wound is beginning to close how ever is not healed, requesting referral to Dr. Garcia locally who performed her cholecystecto my for wound evaluation and management while she undergoes chemotherapy. Notified patient w ould arrange for records to be sent, patient will call Dr. Garcia's office tomorrow to jose chen as she is an established patient. Patient further requesting refill of lidoderm patches, senna and colace. Patient also continues to use Vicodin 1 tab every 4 hours for pain, pain increased starting last , no changes to wound however is more constant in nature. Patient denies fevers/chills, pain remains along right side at surgical site. Notified janis ent would review refills requests with MD tomorrow. Patient indicated understanding. Rn andrew mcarthur as requested to Dr. Garcia's office.Electronically signed by Amy Dinh RN at 013 5:46 PM PDTTelephone Encounter - Palma Lloyd - 06/29/2012 4:11 PM PDTPt calling stat ing she is returning the RN's call. Call back TEL [phone] signed by Palma Lloyd at 06/29/2012 4:14 PM PDTT elephone Encounter - Epifanio Trujillo - 06/29/2012 3:09 PM PDTPATIENT LEFT VOICE MESSAGE 06/29 10:16 Patient states she is returning Silvia's call. And asking for call back at [phone] elephone Encounter - Willie Keita - 06/28/2012 2:05 PM PDTPt calling stating that she has a seroma which is causin g her pain b/c it is beginning to heal around the edges despite her chemo. Additionally she has been bleeding. Pain scale at 5-6/10 Please call back at [phone] documented in this encoun ter Plan of Treatment Not on filedocumented as of this encounter Visit Diagnoses + + | Diagnosis | + + | 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
--- OUTSIDE RECORDS SUMMARY | ~2019-10-19 | XMS | Encounter Summary ---
Demographics + + + | Address | [address] | | | [place] [address] | + + + | Home Phone [...] Providers + +------+ + | Care Wood Filler Name | Role | Phone | + +------+ + | Tomasa Wagner | PCP | | + +------+ + Reason for Visit +--------+--------+ + | Reason | Onset | Comments | | | Date | | +--------+--------+ + | Other | 07/04/ | | | | 2012 | | +--------+--------+ + Encounter Details +--------+ + + + + | Date | Type | Department | Care Team | Description | +--------+ + + + + | 07/04/ | Telephone | Hematology/Medical | Elva Grey, | Other | | 2012 | | Oncology at [facility] | [address] | | | | | [address] [facility] | [facility] [address] | | | | | Mailcode: CH7 | [place] [address] | | | | | [facility] | [phone] | | | | | and Healing, | | | | | | [facility], [facility] | | | | | | [place], [place] | | | | | | [address] | | | | | | [phone] | | | +--------+ + + + [...] this encounter Miscellaneous Notes Telephone Encounter - Jihan Hand - 07/05/2012 2:13 PM PDTFaxed requested supportive documentation to Dr. Najera's office. Spoke to Daniela Authorization clerk stenographer to alert he r to fax, noted that this is being sent to them at the patients request for support for her appeal. She reports they have been working on this and thank us for our efforts. Dr. Najera calls to discuss, he reports two peer to peer reviews have been done, he st ates he is familiar with the NCCN guidelines and that was used to appeal. CC'd copy to patients fax per her request. Electronically signed by Jihan Hand at 06/15 2:20 PM PDTTelephone Encounter - Latoya Goodson RN - 07/05/2012 1:03 PM PDTCopy of consultation note -Bob Grey MD as well as NCCN Guidelines for tx of gall bladder cancer given to TC; she will call treating oncologist's office to ascertain what has been forwarde d to pt's insurance company in defense of current treatment plan; will work with office staf f/Dr. Najera to be certain this data is shared with insurance. TC with pt apprising her of above-encouraged her to F/U with local oncologist's office as a ll information will be FAX'ed today;pt asks that same information be FAX'ed to her today at [phone]; I assured her we will do so.Electronically signed by Latoya Goodson RN at 1:11 PM PDTTelephone Encounter - Missy Hair - 07/05/2012 12:18 PM PDTPt calling back with more explanation of non covered chemo she has rec once at Dr. Williamson offic e and has one due tomorrow. She got 2 denial of payment notices from insurance for the Cape citabine and Gencitabine with the explanation that the treatment is considered "experimental " and refuses to pay for chem. Dr. Najera has had several conversations with the [employer] and they still denied it. She is asking Dr. Vargas for some supportive documentation that she can send to the [employer]. She has to be her own advocate at this point. Please advise. She is to star t C2 tomorrow and will have to sign a form stating she will pay for tx as her insurance has denied coverage. She has called twice about this request. elephone Encounter - Yasmine Ricketts - 07/04/2012 4:15 P M PDTPt called. She would like a call back re: documentation and information on chemo drug. Please call. documente d in this encounter Plan of Treatment Not on filedocumented as of this encounter Visit Diagnoses Not on filedocumented in this encounter
--- OUTSIDE RECORDS SUMMARY | ~2019-10-19 | XMS | Encounter Summary ---
Demographics + + + | Address | [address] | | | [place] [address] | + + + | Home Phone [...] | Author | [facility] | | | and [place] | + + + | Organization | [facility] | | | and [place] | + + + | Address | Unknown | + + + | Phone | Unavailable | + + + Support + + + + + | Name | Relationship | Address | Phone | + + + + + | Poncho Oquendo | ECON | [address] | | | | | [place] | | | | | [address] | | + + + + + | Marta Upton | ECON | [place] | | | | | [address] | | + + + + + Care Team Providers + +------+ + | Care Automotive Product Specialist Name | Role | Phone | [...] + + | 06/26/ | Telephone | [facility] | Marcelina Johnson, | IDT Note | | 2014 | | MED CTR CHEMO | RN | | | | | INFUSION [address] | | | | | | [place], | | | | | | [place] [address] | | | | | | [phone] | | | +--------+ + + + [...] Johnson RN - 06/26/2014 2:14 PM PDT [facility] Interdisciplinary Team Navigational Checklist ? Top Priority Discipline EPIC Order Entered Consult Scheduled Consult Complete Comments: x *Medical Oncology Dr. Najera *Radiation Oncology x *Patient Navigation x *Nurse Navigator x *Social Service Survivorship Nurse Breast Health Genetics Surgical Input x *Nursing assessment Cisplatin day 1 & Gemzar D1,8 every 21 days receive 2 days post hydration and antinausea meds in [place] x *Pharmacy assessment No issues at this time; will re-assess with more current labs whe n available. x Nutrition x Rehab: Fani to assess needs PT OT Speech & Language Palliative Care Clinical Trials Involvement Staff Sonographer Visit Financial Assistance Interdisciplinary Consults Completed Date: documented in this en counter Plan of Treatment +--------+---------+ + + + | Date | Type | Specialty | Care Team | Description | +--------+---------+ + + + | 10/29/ | Office | Urology | Pedro Green, | | | 2019 | Visit | | DO [address] | | | | | | [place] [address] | | | | | | [phone] | | | | | | | | +--------+---------+ + + + documented as of this encounter Visit Diagnoses Not on filedocumented in this encounter"
--- OUTSIDE RECORDS SUMMARY | ~2019-10-19 | XMS | Encounter Summary ---
Demographics + + + | Address | [address] | | | [place] [address] | + + + | Home Phone [...] | Author | [facility] | | | and [place] | + + + | Organization | [facility] | | | and [place] | + + + | Address | Unknown | + + + | Phone | Unavailable | + + + Support + + + + + | Name | Relationship | Address | Phone | + + + + + | Poncho Oquendo | ECON | [address] | | | | | [place] | | | | | [address] | | + + + + + | Marta Upton | ECON | [place] | | | | | [address] | | + + + + + Care Team Providers + +------+ + | Care Account Executive Metalworking Name | Role | Phone | + [...] W | | | | | | [place], | | | | | | [place] [address] | | | | | | [phone] | | | +--------+ + + + [...] [address] | | | | | | [place] [address] | | | | | | [phone] | | | | | | | | +--------+---------+ + + + documented as of this encounter Visit Diagnoses Not on filedocumented in this encounter"
--- OUTSIDE RECORDS SUMMARY | ~2019-10-19 | XMS | Encounter Summary ---
Demographics + + + | Address | [address] | | | [place] [address] | + + + | Home Phone [...] + | Poncho Oquendo | ECON | [address] | | | | | [place] | | | | | [address] | | + + + + + | Marta Upton | ECON | [place] | | | | | [address] | | + + + + + Care Team Providers + +------+ + | Care Pipe Caulker Name | Role | Phone | + [...] | | Carcinoma | Reinaldo, | [address] | | | | | of gall | Epifanio Soler, | [place], | | | | | bladder | MD [address] | [place] [address] | | | | | (HCC) | RICARDA LINDQUIST | Phone: | | | | | Procedures | [address] | [phone] | | | | | CT Chest | OBED, | Fax: | | | | | Abdomen | [place] [address] | [phone] | | | | | Pelvis w | Phone: | | | | | | Contrast | [phone] | | | | | | | Fax: | | | | | | | [phone] | | +--------+--------+ + + + + [...] | | Carcinoma | Reinaldo, | [address] | | | | | of gall | Epifanio Soler, | [place], | | | | | bladder | MD [address] | [place] [address] | | | | | (HCC) | RICARDA LINDQUIST | Phone: | | | | | Procedures | [address] | [phone] | | | | | CT Chest | OBED, | Fax: | | | | | Abdomen | [place] [address] | [phone] | | | | | Pelvis w | Phone: | | | | | | Contrast | [phone] | | | | | | | Fax: | | | | | | | [phone] | | +--------+--------+ + + + + Encounter Details +--------+ + + + + | Date | Type | Department | Care Team | Description | +--------+ + + + + | 12/17/ | Hospital | [facility] | Reinaldo, | Carcinoma of gall | | 2015 | Encounter | MED CTR [address] | Epifanio Soler MD [address] | bladder (HCC) | | | | [place], | [address] RIC[address]INDQU[address] [facility] | | | | | [place] [address] | [address] | | | | | [phone] | [address] | | | | | | | [...] [address] | | | | | | [place] [address] | | | | | | [phone] | | | | | | | [...] intravenous administration of 100 mL | | [id number] contrast. Oral contrast was administered. Multiplanar reformatted [...]
--- OUTSIDE RECORDS SUMMARY | ~2019-10-19 | XMS | Encounter Summary ---
Demographics + + + | Address | [address] | | | [place] [address] | + + + | Home Phone [...] + | Poncho Oquendo | ECON | [address] | | | | | [place] | | | | | [address] | | + + + + + | Marta Upton | ECON | [place] | | | | | [address] | | + + + + + Care Team Providers + +------+ + | Care Bench Boring Machine Operator Name | Role | Phone [...] + + | 07/03/ | Telephone | [facility] | Reinaldo | Coordination Of Care | | 2019 | | MED [facility] | Epifanio Soler MD [address] | | | | | ONCOLOGY CLINIC [address] | [facility] | | | | | [address] | [address] [place], [place] | | | | | [place] [address] | [id number] | | | | | [phone] | | | +--------+ + + + [...] and requested to speak with Dr. Emmanuel [facility]'s nurse about put cold caps on for [...] [address] | | | | | | [place] [address] | | | | | | [phone] | | | | | | | | +--------+---------+ + + + documented as of this encounter Visit Diagnoses Not on filedocumented in this encounter"
--- OUTSIDE RECORDS SUMMARY | ~2019-10-19 | XMS | Encounter Summary ---
Demographics + + + | Address | [address] | | | [place] [address] | + + + | Home Phone [...] Team Providers + +------+ + | Care Atg Architect Name | Role | Phone | [...] | | | Reconstructive | Velma [place] Kirkman, | | | | | Services at [facility] | [place] [address] | | | | | [address] | [phone] | | | | | [facility] | | | | | | and Healing, | | | | | | Building [address], [address]th | | | | | | Floor [place], [place] | | | | | | [address] | | | | | | [phone] | | | +--------+ + + + [...] Notes Telephone Encounter - Radha Peñaloza - 08/05/2008 1:32 PM PDTHi Ms. Finleyloi, thank you f or your email. Please accept my apologies for the late reply. No, you should not be concer yenny regarding the stitches. They will dissolve when they are ready. Please let me know if you have any other questions at any time. Warm regards, Virgilio Buck MD | professor Facial Plastic and Reconstructive Surgery [facility] [phone] | [email or web address] This e-mail, facsimile, or letter and any [...] the sender. Thank you. From: Aura Upton [[email or web address]] Sent: Thursday, July 24, 2008 7:09 AM To: Virgilio Buck Cc: Subject: Question Re Stitches Dr. Buck: I wanted to let you know that I still have at least 4 stitches (2 in each nostril) that hav e not dissolved yet. I have followed the post-operative instructions of the sinus rinses an d frequent use of the saline spray. My recollection of the information provided to me at my last appointment on 07/10 was that the stitches would dissolve in a few days. Should I be c oncerned? Thank you. Aura Upton documente d in this encounter Plan of Treatment Not on filedocumented as of this encounter Visit Diagnoses Not on filedocumented in this encounter"
--- OUTSIDE RECORDS SUMMARY | ~2019-10-19 | XMS | Encounter Summary ---
Demographics + + + | Address | [address] | | | [place] [address] | + + + | Home Phone [...] Team Providers + +------+ + | Care Quality Assurance Lab Technician Name | Role | Phone | + +------+ + | Tomasa Wagner | PCP | | + +------+ + Encounter Details +--------+ + + + + | Date | Type | Department | Care Team | Description | +--------+ + + + + | 06/01/ | Abstract | Digestive Health | Tai Stanton, | | | 2012 | | Center at [facility] 3485 | [address] [facility] | | | | | [facility] | [facility] | | | | | for Health and | [place], [place] | | | | | [facility], [place] [address] | [address] | | | | | [place], [place] | [phone] | | | | | [address] | | | | | | [phone] | | | +--------+ + + + [...]
--- OUTSIDE RECORDS SUMMARY | ~2019-10-19 | XMS | Encounter Summary ---
Demographics + + + | Address | [address] | | | [place] [address] | + + + | Home Phone [...] Providers + +------+ + | Care It Telecom Technician Name | Role | Phone | + +------+ + PCP | Unavailable | + +------+ + Encounter Details +--------+ + + + + | Date | Type | Department | Care Team | Description | +--------+ + + + + | 04/07/ | Abstract | Digestive Health | Tai Stanton, | | | 2012 | | [place] [address] 3485 | [address] [facility] | | | | | [address] [place] | [facility] | | | | | for Health and | [place], [place] | | | | | [facility], [address] | [address] | | | | | [place], [place] | [phone] | | | | | [address] | | | | | | [phone] | | | +--------+ + + + [...]
--- OUTSIDE RECORDS SUMMARY | ~2019-10-19 | XMS | Encounter Summary ---
Demographics + + + | Address | [address] | | | [place] [address] | + + + | Home Phone [...] Team Providers + +------+ + | Care Bladder Tier Name | Role | Phone | + +------+ + | Tomasa Wagner | PCP | | + +------+ + Encounter Details +--------+ + + + + | Date | Type | Department | Care Team | Description | +--------+ + + + + | 07/12/ | Abstract | Digestive Health | Tai Stanton, | | | 2013 | | Center at [facility] 3485 | [address] [facility] | | | | | [facility] | [facility] | | | | | for Health and | [place], [place] | | | | | [facility], [place] [address] | [address] | | | | | [place], [place] | [phone] | | | | | [address] | | | | | | [phone] | | | +--------+ + + + [...]
--- OUTSIDE RECORDS SUMMARY | ~2019-10-19 | XMS | Encounter Summary ---
Demographics + + + | Address | [address] | | | [place] [address] | + + + | Home Phone [...] Providers + +------+ + | Care Trust Accounts Supervisor Name | Role | Phone | [...] | | | | | | | [place], [place] | | | | | | | [address] | | | | | | | Phone: | | | | | | | [phone] | | | | | | | Fax: | | | | | | | [phone] | +--------+--------+ + + + + Encounter Details +--------+---------+ + + + | Date | Type | Department | Care Team | Description | +--------+---------+ + + + | 03/07/ | Office | [facility] | Aamir Lau, | Chronic Ethmoidal | | 2008 | Visit | Center at [facility] [address] | MD [address] | Sinusitis | | | | [address] | [place], [place] | | | | | for Health and | [address] | | | | | [facility] 1, | [phone] | | | | | [address] [place] [address] | | | | | | [place], [place] | | | | | | [address] | | | | | | [phone] | | | +--------+---------+ + + + [...] documentation. Aamir Lau M.D., M.P.H., F.A.C.S. Director, [facility] Professor and Chief, Rhinology and Sinus Surgery Department of Otolaryngology/Head and Neck Surgery austina Barbosa MD - 03/07/2008 3:51 PM PST HPI: Aura Upton is a 47 y.o. female who presents to the [facility] for foll ow up of S/P Sinus Surgery (septoplasty) with Dr. Benedict in [place]. Current symptoms inc lude nasal congestion. Symptoms [...] | + + +--------+ + + | MA NASAL | Procedures | Routin | Chronic Ethmoidal | Ordered: 03/07/2008 | | ENDOSCOPY,DX | | e | Sinusitis | | + + +--------+ + + documented as of this encounter Visit Diagnoses + + | Diagnosis | + + | Chronic ethmoidal sinusitis | + + documented in this encounter"
--- OUTSIDE RECORDS SUMMARY | ~2019-10-19 | XMS | Encounter Summary ---
Demographics + + + | Address | [address] | | | [place] [address] | + + + | Home Phone [...] Team Providers + +------+ + | Care Slag Mixer Name | Role | Phone | [...] | | | Reconstructive | Velma Whitfield [place], | | | | | Services at [facility] | [place] [address] | | | | | [address] | [phone] | | | | | [facility] | | | | | | and Healing, | | | | | | Building 1, 5th | | | | | | Floor [place], [place] | | | | | | [address] | | | | | | [phone] | | | +--------+ + + + [...] | professor Facial Plastic and Reconstructive Surgery [facility] [phone] | [email or web address], a division of [employer] This e-mail, facsimile, or letter and any [...] the sender. Thank you. From: Aura Upton [mailto:[email or web address]] Sent: Thursday, July 24, 2008 7:09 AM [...]
--- OUTSIDE RECORDS SUMMARY | ~2019-10-19 | XMS | Encounter Summary ---
Demographics + + + | Address | [address] | | | [place] [address] | + + + | Home Phone [...] + | Poncho Oquendo | ECON | [address] | | | | | [place] | | | | | [address] | | + + + + + | Marta Upton | ECON | [place] | | | | | [address] | | + + + + + Care Team Providers + +------+ + | Care Clinical Office Technician Name | Role | Phone | [...] + + | 05/19/ | Telephone | [facility] | Reinaldo, | Other | | 2018 | | MED CTR MEDICAL | Epifanio Soler MD [address] | | | | | ONCOLOGY CLINIC [facility] | [facility] | | | | | [address] | [address] [place], [place] | | | | | [place] [address] | [address] | | | | | [phone] | | | +--------+ + + + [...] she [facility]. Electronical ly signed by Rukhsana Vance [...] 2019 | Visit | | DO [address] | | | | | | [place] [address] | | | | | | [phone] | | | | | | | | +--------+---------+ + + + documented as of this encounter Visit Diagnoses Not on filedocumented in this encounter"
--- OUTSIDE RECORDS SUMMARY | ~2019-10-19 | XMS | Encounter Summary ---
Demographics + + + | Address | [address] | | | [place] [address] | + + + | Home Phone [...] Providers + +------+ + | Care Manager Retail Name | Role | Phone | + [...] | 06/09/ | Telephone | Hematology/Medical | Elav Grey, | Treatment Planning; | | 2012 | | Oncology at [facility] | [address] | Question | | | | [address] | [place] [address] | | | | | Mailcode: CH7M | [place] [address] | | | | | [facility] | [phone] | | | | | and Healing, | | | | | | [place] [address], [facility] | | | | | | [place], [place] | | | | | | [address] | | | | | | [phone] | | | +--------+ + + + [...] regimen is 2-week cycle. Pt has met [facility] Dr. Najera and has a tx [...] and need for extrapolation and use of [facility] results and data; assured pt she is welcome to schedule appt again with Dr. Grey if she needs to discuss further. She states she reviewed all information with Dr. Najera after appt at [facility] but has [facility] e been researching online. A: Appropriate to [...] planned to have treatment lo analia at [facility], she will be due for treatment on 06-22-12. She will be at [facility] on 06-21-12 for follow up with Dr. Stanton and she wonders is she could have that one t reatment due 06-22-12 at [facility]? She will have all other treatments at [place], this would be more convenient for her. Please call to advise if this is possible. documented in this encounter Plan of Treatment Not on filedocumented as of this encounter Visit Diagnoses Not on filedocumented in this encounter
--- OUTSIDE RECORDS SUMMARY | ~2019-10-19 | XMS | Encounter Summary ---
Demographics + + + | Address | [address] | | | [place] [address] | + + + | Home Phone [...] | Author | [facility] | | | and [place] | + + + | Organization | [facility] | | | and [place] | + + + | Address | Unknown | + + + | Phone | Unavailable | + + + Support + + + + + | Name | Relationship | Address | Phone | + + + + + | Poncho Oquendo | ECON | [address] | | | | | [place] | | | | | [address] | | + + + + + | Marta Upton | ECON | [place] | | | | | [address] | | + + + + + Care Team Providers + +------+ + | Care Factory Machine Computer Operator Name | Role | Phone | + +------+ + | Valeriy Carmona DO | PCP | | + +------+ + Reason for Visit +--------+--------+ + | Reason | Onset | Comments | | | Date | | +--------+--------+ + | Other | 09/12/ | | | | 2017 | | +--------+--------+ + Encounter Details +--------+ + + + + | Date | Type | Department | Care Team | Description | +--------+ + + + + | 09/12/ | Telephone | [facility] | Reinaldo, | Other | | 2018 | | MED CTR MEDICAL | Epifanio Soler MD [address] | | | | | ONCOLOGY CLINIC [facility] | [facility] | | | | | [address] | [address] [place], [place] | | | | | [place] [address] | [address] | | | | | [phone] | | | +--------+ + + + [...] Telephone Encounter - Sonia Renae RN - 09/12/2017 11:24 AM PDTCall returned to [facility] [place], message left requesting call back. [facility] called, they will follow up with what is needed for patient. elephone Encounter - Noble Kent - 09/12/2017 11:08 AM PDTPt called, [facility] pt of Dr Najera. Pt recieves TPN and hydration through [facility], but is going on vacation, and will need to have these things through [facility] but they require an order The fax [phone] They also said they need the ICD 10 code. Please call patient and let her know when this is done. [phone] Thank you documented in this encou nter Plan of Treatment +--------+---------+ + + + | Date | Type | Specialty | Care Team | Description | +--------+---------+ + + + | 10/29/ | Office | Urology | Pedro Green, | | | 2019 | Visit | | DO [address]ish[address] [place] | | | | | | [place] [address] | | | | | | [phone] | | | | | | | | +--------+---------+ + + + documented as of this encounter Visit Diagnoses Not on filedocumented in this encounter"
--- OUTSIDE RECORDS SUMMARY | ~2019-10-19 | XMS | Encounter Summary ---
Demographics + + + | Address | [address] | | | [place] [address] | + + + | Home Phone [...] | Author | [facility] | | | and [place] | + + + | Organization | [facility] | | | and [place] | + + + | Address | Unknown | + + + | Phone | Unavailable | + + + Support + + + + + | Name | Relationship | Address | Phone | + + + + + | Poncho Oquendo | ECON | [address] | | | | | [place] | | | | | [address] | | + + + + + | Marta Upton | ECON | [place] | | | | | [address] | | + + + + + Care Team Providers + +------+ + | Care Classification Clerk Name | Role | Phone | + +------+ + PCP | Unavailable | + +------+ + Encounter Details +--------+ + + + + | Date | Type | Department | Care Team | Description | +--------+ + + + + | 09/28/ | Hospital | [facility] | Dilip Hakan | | | 2011 | Encounter | MED CTR XRAY [address] | [address], [address] | | | | | [place] | [place], [place] | | | | | [place] [address] | [address] | | | | | [phone] | | | +--------+ + + + [...] [place] | | | | | | [place] [address] | | | | | | [phone] | | | | | | | [...] Performed At | + + + | [facility] Diagnostic Imaging Department | [place] | | [address], [facility] | [facility] | | 09/29/2011, LUMBAR FACET | DIAG [...] Transcribed Date/Time: | | | 09/30/2011 07:23 Window Decorator: <Electronically Signed | | | by Hakan Cherry MD> 10/01/11 0936 | | + + + + + | Procedure Note | + + | Hardy Wyatt Conversion - 03/23/2013 5:52 PM [facility] | | Diagnostic Imaging Department | | [address] [facility] | | | | | | [...] | Transcribed Date/Time: 09/30/2011 07:23 | | Window Decorator: | | <Electronically Signed by Hakan Cherry [...]
--- OUTSIDE RECORDS SUMMARY | ~2019-10-19 | XMS | Encounter Summary ---
Demographics + + + | Address | [address] | | | [place] [address] | + + + | Home Phone [...] | Poncho Omar Oquendo | ECON | [address] | | | | | [place] | | | | | [address] | | + + + + + | Marta Upton | ECON | [place] | | | | | [address] | | + + + + + Care Team Providers + +------+ + | Care Diamond Sawer Name | Role | Phone | + [...] | | Malignant | Reinaldo, | [address] [place] | | | | | neoplasm of | Epifanio Soler, | [place], | | | | | extrahepatic | MD [address] | [place] [address] | | | | | bile ducts | [address] | Phone: | | | | | Procedures | [address] | [phone] | | | | | CT Abdomen | [place]ED, | Fax: | | | | | Pelvis w | [place] [address] | [phone] | | | | | Contrast | Phone: | | | | | | | [phone] | | | | | | | Fax: | | | | | | | [phone] | | +--------+--------+ + + + + [...] | | Malignant | Reinaldo, | [address] | | | | | neoplasm of | Epifanio Soler, | [place], | | | | | extrahepatic | MD [address] | [place] [address] | | | | | bile ducts | [address] | Phone: | | | | | Procedures | [address] | [phone] | | | | | CT Abdomen | OBED, | Fax: | | | | | Pelvis w | [place] [address] | [phone] | | | | | Contrast | Phone: | | | | | | | [phone] | | | | | | | Fax: | | | | | | | [phone] | | +--------+--------+ + + + + Encounter Details +--------+ + + + + | Date | Type | Department | Care Team | Description | +--------+ + + + + | 09/25/ | Hospital | [facility] | Reinaldo, | Malignant neoplasm | | 2014 | Encounter | MED CTR [address] | Epifanio Soler MD [address] | of extrahepatic bile | | | | [place], | [address] | ducts (HCC) | | | | [place] [address] | [address] [place], [place] | | | | | [phone] | [address] | | | | | | | [...] [place] | | | | | | [place] [address] | | | | | | [phone] | | | | | | | [...] + | MISCELLANEOUS LAB | | | [phone] | + +---------+ + + | MISCELANIOUS LAB | | | [phone] | + +---------+ + + documented in [...]
--- OUTSIDE RECORDS SUMMARY | ~2019-10-19 | XMS | Encounter Summary ---
Demographics + + + | Address | [address] | | | [place] [address] | + + + | Home Phone [...] Team Providers + +------+ + | Care Inside Wirer Name | Role | Phone | [...] | | | | | Procedures | [place], [place] | [place] | | | | | [place] | [address] | [address] | | | | | ENT / FACIAL | Phone: | Phone: | | | | | PLASTIC | [phone] | [phone] | | | | | SURGERY | Fax: | Fax: | | | | | | [phone] | [phone] | +--------+--------+ + + + + Reason [...] y | | Epic Dept | [address] | | | | | [address] | | | | | | | Center for | | | | | | | Health and | | | | | | | Healing, | | | | | | | Building 1, | | | | | | | 5th Floor | | | | | | | [facility] [place] | | | | | | | [address] | | | | | | | Phone: | | | | | | | [phone] | | | | | | | Fax: | | | | | | | [phone] | +--------+--------+ + + + + Encounter Details +--------+---------+ + + + | Date | Type | Department | Care Team | Description | +--------+---------+ + + + | 12/27/ | Office | [place] [facility] | Aamir Lau, | Nasal Septal Defect | | 2007 | Visit | Center at [facility] [address] | [address] | (Primary Dx); | | | | [address] | [facility] [place] | Chronic Ethmoidal | | | | for Health and | [address] | Sinusitis; Other | | | | Healing, Building 1, | [phone] | Diseases of Nasal | | | | 5th Floor | | Cavity and Sinuses | | | | [place], [place] | | | | | | [address] | | | | | | [phone] | | | +--------+---------+ + + + [...] documentation. Aamir Lau M.D., M.P.H., F.A.C.S. Director, [facility] Professor and Chief, Rhinology and [...] ESS and septoplasty by Dr. Benedict in [place]. She reports a prolonged recovery with sign [...] Rfl: No Known Allergies. Social HX: Lives [place], [place] No ETOH, No tobacc (quit several [...] | + + +--------+ + + | [place] [facility] | Procedures | Routin | Chronic [...]
--- OUTSIDE RECORDS SUMMARY | ~2019-10-19 | XMS | Encounter Summary ---
Demographics + + + | Address | [address] | | | [place] [address] | + + + | Home Phone [...] + | Poncho Oquendo | ECON | [address] | | | | | [place] | | | | | [address] | | + + + + + | Marta Upton | ECON | [place] | | | | | [address] | | + + + + + Care Team Providers + +------+ + | Care Cottage Cheese Maker Name | Role | Phone | [...] | | | | 07/14/ | | [place], [place] | | | | 2012 | | [address] | | | | | | [phone] | | | +--------+ + + + [...] | | | | | [place] [address] | | | | | | [phone] | | | | | | | [...] [address] | [place] | [phone] | | [facility] | | [address] | | | - LABORATORY | | | | + + + + + | [facility] | [address] | [place] | | | [facility] | | [address], [facility] | | | [...] 9 | 7 - 18 mg/dL | [facility] | | | | | | [facility] | | | | | | MEDICAL | | | | | | CENTER - | | | | | | LABORATORY | | + + + + + + | Creatinine | 0.89 | 0.60 - 1.30 | [facility] | | | | | mg/dL | [...] + | [address] | [address] | [place], [place] | [phone] | | [facility] | | [address] | | | - LABORATORY | | | | + + + + + | [address] | [address] | [place], [place] | | | [facility] | | [address] | | | - [...] + | [facility] | [address] | [place] | [phone] | | [facility] | | [address] | | | - LABORATORY | | | | + + + + + | [facility] | [address] | [place] | | | [facility] | | [address] | | | - [...] + | [facility] | [address] | [place], [place] | [phone] | | [facility] | | [address] | | | - LABORATORY | | | | + + + + + | [facility] | [address] | [place], [place] | | | [facility] | | [address] | | | - [...] 8 | 7 - 18 mg/dL | [facility] | | | | | | ST. [...] + | [facility] | [address] | [place] | [phone] | | [facility] | | [address] | | | - LABORATORY | | | | + + + + + | [facility] | [address] | [place], [place] | | | [facility] | | [id number] [place] [address] | | | - LABORATORY | | [...] [address] | [place] | [phone] | | [facility] | | [address] | | | - LABORATORY | | | | + + + + + | [facility] [facility] | [address] | [place] | | | [facility] | | [address], [facility] | | | [...] + | [facility] | [address] | [place] | [phone] | | [facility] | | [address] | | | - LABORATORY | | | | + + + + + | [facility] | [address] | [place] | | | [facility] | | [address], [facility] | | | [...] + | [facility] | [address] | [place], [place] | [phone] | | [facility] | | [address] | | | - LABORATORY | | | | + + + + + | [facility] | [address] | [place], [place] | | | [facility] | | [address] [place] [address] | | | - LABORATORY | | [...] + | [facility] | [address] | [place] | [phone] | | [facility] | | [address] | | | - LABORATORY | | | | + + + + + | [facility] | [address] | [place], [place] | | | [facility] | | [address] | | | - LABORATORY | | | | + + + + + documented in this encounter Visit Diagnoses Not on filedocumented in this encounter"
--- OUTSIDE RECORDS SUMMARY | ~2019-10-19 | XMS | Encounter Summary ---
Demographics + + + | Address | [address] | | | [place] [address] | + + + | Home Phone [...] Team Providers + +------+ + | Care Promotional Marketing Agent Name | Role | Phone | [...] 2015 | Event | [address] | [address] | | | | | [facility] | [address] | | | | | Hospital Admitting | [place], [place] | | | | | Desk Located on the | [address] | | | | | 9th floor | [phone] | | | | | [place], [place] | | | | | | [address] | Aurea Rowell RN | | | | | | [address] | | | | | | [address] | | | | | | [place], [place] | | | | | | [address] | | +--------+ + + + + [...] be different from the original. Aura Upton [id number] Allergies Allergen Reactions Sulfacetamide Sodium Hives Past [...] noted - Indicate below Complications Other: BP [id number] systolic, slightly below her baseline of 110s systolic. Pt has zero pa in and is very happy with her anesthesia care. nesthesia Postproc edure Evaluation - Kwaku Beltrán CRNA - 06/06/2014 12:02 PM PDTFormatting of this no te might be different from the original. Aura Upton [id number] Allergies Allergen Reactions Sulfacetamide Sodium Hives Past [...] be different from the original. Aura Upton [id number] Allergies Allergen Reactions Sulfacetamide Sodium Hives NPO:NPO [...] Date RATE 65 04/27/2012 ATRIALRATE 65 04/27/2012 RI 142 04/27/2012 QRS 86 04/27/2012 QT 398 [...] 10:46 | | | | | Starting [facility] 06/06/14 at 0752, | | AM PDT | | | | | Until [facility] 06/06/14 at 1106 | | | | [...]
--- OUTSIDE RECORDS SUMMARY | ~2019-10-19 | XMS | Encounter Summary ---
Demographics + + + | Address | [address] | | | [place] [address] | + + + | Home Phone [...] Providers + +------+ + | Care Electric Meter Installer Helper Name | Role | Phone | + +------+ + | Prudencio Isaac MD | PCP | Unavailable | + +------+ + Reason for Visit + +--------+ + | Reason | Onset | Comments | | | Date | | + +--------+ + | Work Release | 07/18/ | Needs release extended for her employer. | | | 2009 | | + +--------+ + Encounter Details [...] | | | Reconstructive | Velma [place], | her employer.) | | | | Services at [facility] | [place] [address] | | | | | [address] | [phone] | | | | | [facility] | | | | | | and Healing, | | | | | | Building | | | | | | [place], [place] | | | | | | [address] | | | | | | [phone] | | | +--------+ + + + [...]
--- OUTSIDE RECORDS SUMMARY | ~2019-10-19 | XMS | Encounter Summary ---
Demographics + + + | Address | [address] | | | [place] [address] | + + + | Home Phone [...] + | Poncho Oquendo | ECON | [address] | | | | | [place] | | | | | [address] | | + + + + + | Marta Upton | ECON | [address] | | | | | [address] | | + + + + + Care Team Providers + +------+ + | Care Plate Stacker Hand Name | Role | Phone | [...] | Procedures | [address] | [place] [address] | | | | | [place] OFFICE | OBED, | Phone: | | | | | OUTPATIENT | [place] [address] | [phone] | | | | | VISIT 25 | | Fax: | | | | | MINUTES | | [phone] | +--------+--------+ + + + + Encounter Details +--------+ + + + + | Date | Type | Department | Care Team | Description | +--------+ + + + + | 11/22/ | Hospital | [facility] | TravisVladimir, | Cholangiocarcinoma | | 2015 | Encounter | [facility] | [address] | (HCC) (Primary Dx); | | | | [facility] [address], | Pancytopenia due to | | | | [address] [place] | [place] [address] | antineoplastic | | | | [place] [address] | [phone] | chemotherapy (HCC) | | | | [phone] | | | +--------+ + + + [...] fr om the original. Hematology/Oncology Progress Note [facility] Pt. Name/Age/: Aura Upton 54 y.o. 1960 Med. Record Number: [id number] Date of admission: 11/22/2014 Identifying Statement: Aura Upton is a 54 y.o. female from [address] [place] [address] with Recurrent Cholangiocarcinoma. The patient chart and medications were reviewed in detail and the patient was seen and exam ined. History of Present Illnesses, their Current Assessments and Plans: Gallbladder cancer, carcinoma Overview ACTIVE DIAGNOSES: Recurrent cholangiocarcinoma. 1. Presentation with biliary colic in March of 2012; status post cholecystectomy and hailee er biopsy by Dr. Brandon Garcia March 29, 2012, pathological specimen [id number], analyzed by Dr. Bowers of [facility] and was notable for a poorly-differentiated adenoc arcinoma of the gallbladder. Liver biopsy demonstrated mild portal inflammation. 2. On April 28, 2012, she successfully underwent an R0 resection by Dr. Tai Stanton at [facility], pathological specimen [id number] was notable for the absence of any residual carcinoma within the gallbladder bed. However, 2/8 regional lym ph nodes contained regionally metastatic disease. 3. Consultation by Dr. Elva Grey of the [facility] on May returned the recommendation for adjuvant chemoradiation therapy following [id number] as follows: Capecitabine at 750 mg/m sq [...] Elva Grey the [facility] in June 26 015 who recommended additional chemotherapy was cisplatin at 75 mg meter squared on day 1 an d gemcitabine 1250 mg per meter squared on day one and day 8 of acute 21 day cycle for 6-8 c ycles. A second opinion was obtained by Dr. Richie Thayer of the [facility] who returned the recommendation for [...] the recommendations of [facility] with gemcitabine at 1000 mg per [...] time. Plan: 1. Proceed with day 1 cis-upper skagit and gemcitabine as outlined above. 2. Neutropenic [...] has been changed since signin [facility] amitriptyline (ELAVIL) 10 mg tablet (Taking) Take 10 mg by mouth nightly. Number of times this order has been changed since signin [facility] dexamethasone (DECADRON) 4 mg tablet (Taking) Take one tablet PO as directed. Number of times this order has been changed since signin [facility] docusate calcium (SURFAK) 240 mg capsule (Taking) Take 240 mg by mouth as needed. Number of times this order has been changed since signin [facility] fish oil 1,000 mg capsule (Taking) Take 1,000 mg by mouth Daily. Number of times this order has been changed since signin [facility] HYDROcodone-acetaminophen (VICODIN) 5-500 mg per tablet (Taking) Take 1 tablet by mouth e very 4 hours as needed. Number of times this order has been changed since signin [facility] MULTIPLE VITAMIN PO (Taking) Take by mouth Daily. Number of times this order has been changed since signin [facility] ondansetron (ZOFRAN ODT) 8 mg disintegrating tablet (Taking) Take 8 mg by mouth every 8 h ours as needed for Nausea. Number of times this order has been changed since signin [facility] Probiotic Product (PROBIOTIC DAILY PO) (Taking) Take by mouth Daily. Number of times this order has been changed since signin [facility] Allergy: Allergies Allergen Reactions Sulfa Antibiotics Rash [...] Ref Range CA-125 19 0-35 U/mL Vladimir Rboles MD DATE/TIME: 11/22/2014 9:05 Portions of this chart may have been created with [employer] voice recognition software. Occasi onal wrong-word or [...] | | | | | | [place] [address] | | | | | | [phone] | | | | | | | [...]
--- OUTSIDE RECORDS SUMMARY | ~2019-10-19 | XMS | Encounter Summary ---
Demographics + + + | Address | [address] | | | [place] [address] | + + + | Home Phone [...] Team Providers + +------+ + | Care Enterprise Resource Planning Consultant Name | Role | Phone [...] | 2012 | Visit | Center at [facility] [address] | [address] | care (Primary Dx) | | | | [address] [facility] | [address] | | | | | for Health and | [place], [place] | | | | | [facility] [address] | [address] | | | | | [place], [place] | [phone] | | | | | [address] | | | | | | [phone] | | | +--------+---------+ + + + [...] sooner if she wishes. Tai Stanton M.D. [facility] ([facility]) Professor and Vice-[employer] [facility] [employer] [facility] Chair for Pancreatic Disease Research Pancreatic/ HepatoBiliary and Foregut Working Groups Office email: [email or web address] documented in this en counter Plan of Treatment Not on filedocumented as of this encounter Visit Diagnoses + + | Diagnosis | + + | Encounter for wound care - Primary Encounter for other specified aftercare | + + documented in this encounter
--- OUTSIDE RECORDS SUMMARY | ~2019-10-19 | XMS | Encounter Summary ---
Demographics + + + | Address | [address] | | | [place] [address] | + + + | Home Phone [...] | | + + +---------+ + | Esly Upton | ECON | Unknown | | + + +---------+ + Care Team Providers + +------+ + | Care Deputy [employer] [place] Marshal Name | Role | Phone | [...] | | 2012 | | Oncology at [facility] | [address] | | | | | [address] | [facility] [address] | | | | | Mailcode: [address] | [place] [address] | | | | | [facility] | [phone] | | | | | and Healing, | | | | | | [facility] [address], [facility] | | | | | | [place], [place] | | | | | | [address] | | | | | | [phone] | | | +--------+ + + + [...] Dr. Najera's office. 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 She is asking Dr. Vargas for some supportive documentation that she can send to the [employer]. She has to be her own advocate [...]
--- OUTSIDE RECORDS SUMMARY | ~2019-10-19 | XMS | Encounter Summary ---
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
--- OUTSIDE RECORDS SUMMARY | ~2019-10-19 | XMS | Encounter Summary ---
Demographics + + + | Address | [address] | | | [place] [address] | + + + | Home Phone [...] Team Providers + +------+ + | Care Elevated Work Platform Operator Name | Role | Phone | [...] HIEN Maya | | | | | [place], [place] | [address] | | | [birth year]/ | | [address] | [place], [place] | | | 2017 | | [phone] | [address] | | | | | | [phone] | | | | | | | | | | | | Marbin Espinoza MD | | | | | | [address] | | | | | | [place], | | | | | | [place] [address] | | | | | | [phone] | | | | | | | | | | | | Lloyd Garcia, | | | | | | [address] | | | | | | [address] | | | | | | [place], [place] | | | | | | [address] | | | | | | [phone] | | | | | | | [...] might be differen t from the original. [facility] Discharge Summary Discharging Provider: SASHA JARRETT MD Discharging Attending Physician: Luigi Garcia [...] fever after accessing her portacath at [facility]. She was admitted for septic shock found to have Klebsiella bacteremia with concern for colonized portacath. Principal Final Diagnosis: Klebsiella bacteremia Additional Diagnoses: Infected portacath Procedures: Left portacath removal 12/27 JULY, prerenal -- resolving Hospital Course: # Klebsiella bacteremia # infected portacath At [facility], Ms. Upton was hypotensive to 70/40s with fever concerning for septic s hock. She received IV fluids and 1 unit pRBCs for Hgb of 7.0 and was transferred to [facility] for further care. On admission to [facility], she was no longer hypotensive and did not require vasopressors. She was started on cefepime, flagyl, and vancomycin. Blood cultures at OSH fro m 12/23 revealed Klebsiella pneumoniae from both R hand and portacath. It was pansentitive. I nfectious disease was consulted who found that pt has Klebsiella bacteremia 1 month ago camdeneric whiting admitted to [facility] for sepsis. Given 2 bacteremic [...] date. Culture from cath tip 12/27: pending Donnelly's Blood culture 12/23 x2 (peripheral and port) GNR; cx Klebsiella pneumonia (R: ampicillin; s: cefazolin, ceftriaxone, meropenem, ciprofloxacin, tmp/smx) Discharge Medications: Medication List START taking these medications ciprofloxacin HCl 500 mg Tab Commonly known as: CIPRO Take 1 tablet by mouth every twelve hours. Indications: port infection NARCAN 4 mg/actuation [place] Generic drug: naloxone Instill 1 spray into [...] Why: For wound re-check Contact information [address] [place] [id number] VALERIY BAY MD . Specialty: Family Medicine Contact information [facility] [address] [place] [id number] Discharge Physical Exam: Last 24 hour min/max [...] Sasha Jarrett M.D. Internal Medicine PGY-3 Pager [phone] Associated attestation - Lloyd Garcia MD - 12/27/2017 10:01 PM [facility] Date of admission: 12/23/2017 [...] and follow up plan. Lloyd Garcia MD Purchase Price Analystvision teacher Clinical Hospitalist and Medicine Teaching Service Division of Hospital Medicine Pager [phone] Patients Hospital Problem List: Active Hospital Problems [...] MD - 12/27/2017 12:40 PM PST{Diet Inst ructions:92817} Discharge Instr - Activity (facility) Lloyd Garcia MD - 12/27/2017 12:40 PM PST{Activ ity Orders:04094} Additional Instructions Lloyd Garcia MD - 12/27/2017 12:39 PM PST{Additional Instruct ions AVS:06150} Opioid Pain Management {Opioid pain medication plan:80114} documented in this encounter Medications at Time [...] oz) (12/23/17 2322) Physical Exam: General: pleasant epk-rowfr-hnmbhnwre woman lying in bed in no acute [...] oral BID Microbiology: 11/07 blood culture at [facility] also grew klebsiella pneumoniae, when she had sepsis 12/23 blood culture at [facility] Klebsiella pneumoniae NGTD 12/23 blood cultures here Imaging: No new imaging Hospital problem list: Patient Active Problem List Diagnosis Date Noted Bacteremia due to Gram-negative bacteria 12/24/2017 Priority: 1 JULY (acute kidney injury) (HCC) 12/24/2017 Priority: 2 Cholangiocarcinoma (HCC) 04/27/2012 Priority: 3 Overview Note: -Diagnosed 2012. Followed by Dr. Ragland at [facility] in [place]. -04/26/2012: R0 Resection. -05/31/2012-09/03/2012 Chemotherapy: Xeloda/gemictabine x4 [...] her port has been used. Records per [facility] from 11/07 and 12/23. Was [...] Arley ramirez - update Dr. Ragland in [place] on Tuesday # thrombocytopenia Likely chemotherapy related [...] Maker Primary Surrogate Decision Maker Poncho Oquendo [phone] Patient was staffed with my attending Dr. Garcia who agrees with my assessment and plan unl ess otherwise indicated. Myriam Holt MD 12/25/2017 PGY1 physician [phone] Associated attestation - Lloyd Garcia MD - 12/26/2017 9:53 PM PSTGENERAL MEDICINE PA OGRESS NOTE ATTESTATION Date of admission: 12/23/2017 [...] removal, documenting, reviewing records. Lloyd Garcia MD Purchase Price Analystvision teacher Clinical Hospitalist and Medicine Teaching Service Division of Hospital Medicine Pager [phone] Patients Hospital Problem List: Active Hospital Problems 1) *Bacteremia due to Gram-negative bacteria 2) JULY (acute kidney injury) (HCC) 3) Chronic use of opiate drugs therapeutic purposes 4) Hx of small bowel obstruction 5) Gastrostomy tube in place (HCC) 6) Insomnia 7) Moderate protein-calorie malnutrition (HCC) Myriam Holt MD - 12/25/2017 10:08 AM PSTFormatting of this note might be different from e original. [facility] Progress Note 12/25/2017 Admit Date: 12/23/2017 Hospital Day: 2 Attending Physician: Dr. Marbin Espinoza 24 Hour Events/ Subjective: -transferred to [facility] from intensive care -"take out my [...] oz) (12/23/17 2322) Physical Exam: General: pleasant gyl-qvbex-qszgnfkir woman lying in bed in no acute [...] oral BID Microbiology: 12/23 blood culture at [facility] gram negative bacilli NGTD 12/23 blood cultures here Imaging: No new imaging Hospital problem list: Patient Active Problem List Diagnosis Date Noted Bacteremia due to Gram-negative bacteria 12/24/2017 Priority: 1 JULY (acute kidney injury) (HCC) 12/24/2017 Priority: 2 Cholangiocarcinoma (HCC) 04/27/2012 Priority: 3 Overview Note: -Diagnosed 2012. Followed by Dr. Ragland at [facility] in [place]. -04/26/2012: R0 Resection. -05/31/2012-09/03/2012 Chemotherapy: Xeloda/gemictabine x4 [...] - f/u blood cultures here and [facility]: no new information this AM from St. [...] Arley ramirez - update Dr. Ragland in [place] on Tuesday # thrombocytopenia Likely chemotherapy related [...] Maker Primary Surrogate Decision Maker Poncho Oquendo [phone] Patient will be staffed with my attending physician, Dr. Marbin Espinoza, within 24 hours. Myriam Holt MD 12/25/2017 PGY1 physician [phone] Associated attestation - Marbin Espinoza MD - 12/25/2017 7:16 PM PSTI agree with bita carmen resident note. For additional information, please refer to my note from today's date. Marbin Espinoza MD Clinical Hospitalist & Medical Teaching Services [facility] Pager [phone] Jostete suarez MD - 12/24/2017 11:28 AM PSTFormatting of this note might be different fro m the original. MICU Attending Note Admission Date: 12/23/2017 Length of stay: 1 days ID: Aura Upton is a 57 y.o. female with metastatic cholangiocarcinoma (on palliative chemotherapy with gemcitabine/cisplatin q3wk) admitted to the MICU from [place] for suspec ashley septic shock. Present on [...] longer critica lly ill. JOSETTE SALAZAR MD [facility] [address] [place] [address] Brittany Crouch MD - 12/24/2017 6:14 AM PST [facility] MEDICAL ICU - PROGRESS NOTE Hospital Day: 1 | ICU Day: 1 ID/CC: Aura Upton is a 57 y.o. woman w/ metastatic cholangiocarcinoma (on palliative chemotherapy with gemcitabine/cisplatin q3wk) admitted to the MICU from [place] for suspe cted septic shock. Consultants: HIEN, [...] the duration of her hospital ization at [facility] and continued to have intermittent fevers and chills while she was there. S he was frustrated with [facility] because they would only send [...] gemcitabine/carboplatin q3wk) admitted to the MICU from [place] for suspected s eptic shock. Neurological # [...] Oquendo, Brittany Dean MD Anesthesiology PGY-1 p: [phone] 12/24/2017, 6:14 AM Template created by DERREK [...] (gemcitabine/carboplatin) for metastatic cholangiocarcinoma. Since arrival to [place] E D has received 4L fluid and [...] floor. Dagoberto Iniguez MD Pulmonary/Critical Care Medicine [phone] documented in this en counter H&P Notes Sasha Jarrett MD - 12/24/2017 5:05 PM PSTFormatting of this note might be differen t from the original. Internal Medicine History and Physical Attending Physician: Marbin Espinoza MD PCP: Valeriy Bay MD Chief Complaint: fever, chills HPI: uAra Upton is a 57 y.o. woman with [...] urgency, urinary frequency. She was sent to [facility] ER and was reported to have crackles in left lower lung harrell (unclear if CXR was obtained) with WBC 1.7, ANC 1500 Hgb 7, Plt 61 She was star ashley on vancomycin, cefepime, and received 3 L of fluids and 1 unit of pRBCs en route to [facility] for higher level of care. Per report, her MAP remained >5 en route via helicopter and on ar rival to [facility] MICU her BP was 93/62, HR 68, and she was afebrile. She reported intermittent mild RUQ pain en route to [facility] which has since resolved. No worsening jaundice, itching, aco lic stools, or dark urine. Her blood cultures (1 from portacath, 1 from right hand) drawn at [facility] on 12/23 rev eal gram negative bacilli. Of note, She was recently hospitalized at [facility] ([place], [place]) for severe se psis of unclear etiology and received 14 days of antibiotics and reports intermittent feveri ng and chills. Portacath was accessed that hospital stay and wasn't accessed again prior to access on 12/23 at [facility]. Interestingly, she said she was discharged [...] -Diagnosed 2012. Followed by Dr. Ragland at [facility] in [place]. -04/26/2012: R0 Resection. -05/31/2012-09/03/2012 Chemotherapy: Xeloda/gemictabine x4 [...] 2.2* 2.0* TP 6.1* 6.1* 5.2* Cultures: [facility], [place] Blood cultures x2 12/23: gram negative bacilli x 2 in aerobic and anaerobic bottles [place]: Blood cultures x 2 12/23: NGTD Blood cultures x 1 12/24 EKG 12/24: NSR with HR 75, nml PA, QTc 467, no ST or T wave [...] infection. + blood cultures from 12/23 at [facility]. Suspect source is from portacath given temporal [...] Maker Primary Surrogate Decision Maker Poncho Oquendo [phone] Dispo: IV abx and need for portacath removal prior to discharge. Likely 2-3 more days. Pt will be staffed with my attending, Dr. Marbin Espinoza, within 24 hours. Sasha Jarrett M.D. Internal Medicine PGY-3 Pager [phone] Associated attestation - Marbin Espinoza MD - [...] negative bacteremia from portacath requiring transfer to [facility] for e valuation for portacath explant. Patient [...] plans. Marbin Espinoza MD Clinical Hospitalist Services [facility] Pager [phone] I have spent 70 minutes with the [...] Insomnia Resolved Hospital Problems 7) Septic shock ([facility]) 8) Sepsis ([facility]) Lia Pollock MD - 12/23/2017 7:38 PM PSTFormatting of this note might be different fr om the original. [facility] MEDICAL ICU - HISTORY & PHYSICAL Author: LIA POLLOCK MD Attending: Dagoberto Iniguez MD ID/CC: Aura Upton is a 57 y.o. woman w/ metastatic cholangiocarcinoma (on palliative chemotherapy with gemcitabine/cisplatin q3wk) admitted to the MICU from [place] for suspec ashley septic shock. HPI: Pt [...] note, she was hospitalized month ago at [facility] for severe sepsis of [place] [...] sharp RUQ pain while in commute to [facility]. Denies N/V/D/C, hematochezia, dysuria. No rashes or [...] History Narrative Pt has SO. Lives in [place] [facility] [place]. 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 Likes to camp, entertain. Vital Signs: Cuff [...] gemcitabine/cisplatin q3wk) admitted to the MICU from [place] for suspected sep tic shock. Neurological # [...] physician. Lia Pollock MD Internal Medicine, PGY-1 [phone] Template created by DERREK 2017 documented in [...] General Surgery History and Physical Patient: Aura pUton ([id number]) Date: 12/26/2017 Chief Complaint: Concern for infected port History of Present Illness: Aura Upton is a(n) 57 y.o. female with metastatic cholan giocarcinoma (underwent initial resection in 2012) now on palliative chemotherapy (gemcitabi ne/cisplatin, gets chemo in [place], last chemo 6 weeks ago) with indwelling port. Since [facility], has been admitted twice with sepsis and Klebsiella bacteremia without clear source . Most recently was hospitalized at [facility] where blood cultures on 12/23 were [...] a 19 yo son. Lives in [place]. 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 Wants to get back to [employer] soon. Likes to camp, entertain. Review of [...] Brooke Rodriguez MD General Surgery, PGY-3 Pager [phone] Associated attestation - Micah Flowers MD - 12/28/2017 5:43 PM PST ATTENDING NOTE A resident assisted with documenting this service. I saw the patient and reviewed and verif ied all information documented by the resident, and made modifications to such information, when appropriate. Micah Flowers MD, MCR, FACS MICAH FLOWERS MD DIGESTIVE [facility] 6TH FLOOR [address] Mailcode: [address] [phone] Ashley Snow DO - 12/26/2017 6:41 PM PSTFormatting of this note might be different fro m the original. INPATIENT INFECTIOUS DISEASE PROGRESS NOTE ID TEAM: Team A ID Attending Physician: Cathy Author: Ashley Snow DO Date of Admission: 12/23/2017 Hospital Day: 3 Interval Events/Subjective: -no acute events. Received speciation and susceptibility for blood culture done at [facility]. Patient says that she had a [...] bacteremia in on 11/07/17 (confirmed w [facility] lab). At this point we [...] the primary team. This patient was staffed [facility] Dr. Morgan, who agrees with the above assessment and plan unless otherwise documented. Ashley Snow DO Infectious Disease Fellow Pager: [phone] Associated attestation - Micah Morgan MD - 12/26/2017 8:38 PM PSTINFECTIOUS DISEASES TE AM A PROGRESS NOTE I saw & personally examined Aura Upton today, discussed thecase as well as reviewed a ll aspects of ID management with Dr. Snow. I agree with the assessment & recommendations as outlined in the note today. Please call with any questions. Micah Morgan MD, [facility] Purchase Price Analyst Infectious Diseases #[id number] Date of service : 12/26/2017 ID service General ID - [id number] Debra Mitchell MD - 12/25/2017 5:04 PM PSTAssociated Order(s): IP CONSULT TO INFECTIOU S DISEASES Aura Upton [id number] Rm/Bed:52/01 INPATIENT INFECTIOUS DISEASES INITIAL CONSULT NOTE [...] ureteral stent placement who is transferred from [facility] for management of GNB bacteremia. Pt reports being in her usual state of health until 12/23 when she presented to her infusion center for scheduled chemo infusion. Shortly after port-a-cath was accessed she developed fever and rigors. Noted to be hypotensive on arrival to ED, received volume re suscitation and was airlifted to [facility] MICU. Blood cultures here are NGTD. Pt reports resolut ion of rigors since transfer. She has been afebrile here. Denies any prior issues with port- a-cath. No pain at cath site. Last accessed about a month ago when hospitalized at [facility] in [place]. Reports two hospitalizations at [facility] in Oct/Nov (reports last discharge was ~ [...] a 19 yo son. Lives in [place]. 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 Wants to get back to [employer] soon. Likes to camp, entertain. Family history: [...] stent placement wh o is transferred from [facility] with fever, rigors and hypotension and found [...] line. Recommendations: 1. Continue cefepime 2g IV [id number], which is appropriate dose adjustment for crcl 2. Discontinue metronidazole 3. Will follow up outside blood cultures Recommendations were communicated directly to the primary team. This patient was staffed [facility] Dr. Morgan, who agrees with the above assessment and plan unless otherwise documented. Thank you for the consult, we will follow along with you. Debra Mitchell MD Infectious Disease Fellow Pager: [phone] Associated attestation - Micah Morgan MD - 12/26/2017 9:49 AM PSTINFECTIOUS DISEASES AT [facility] - TEAM A ADMIT [...] note for additional details. Micah Morgan MD, [facility] Purchase Price Analyst Infectious Diseases Pager: [phone] Date of service : 12/25/17 ID service General ID - [id number] Cate Valdovinos, PharmD - 12/24/2017 7:12 AM [...] to fourth dose. Please page clinical pharmacist ([phone]) or call central inpatient pharmacy ([phone]) with qu estions. Actual body weight: Weight: 60.3 kg (132 lb 15 oz) (12/23/17 0702) Labs: CREATININE PLASMA (LAB) (mg/dL) Date Value [...] Preferences: Patient goes by "Aura" (12/24/17 0800) [facility] IP NURSE HANDOFF: Ivey hospital course events: [...] Preferences: Patient goes by "Aura" (12/24/17 0800) [facility] IP NURSE HANDOFF: Ivey hospital course events: [...] port removed lan of Care - Fanta Moore, AUDREY - 12/26/2017 12:36 PM PSTProblem: Nutrition [...] By: Fanta Thapa RD, LD Pager #: [phone] Comments: Aura Upton is a 57 y.o. female with a PMHx of metastatic cholangiocarcinoma on palliative chemo (gemcitabine/carboplatin), hx of SBO s/p venting gastrostomy tube, L si ded hydronephrosis s/p ureteral stent placement who is transferred from [facility] for management of GNB bacteremia. Additional nutrition [...] 1 month (23.4% -severe) BMI: 23.7 kg/m^2 [place] Body Weight: 52.3 kg Estimated Nutrition Needs: 6738-0328 kcal/day (30-35 kcal/kg) 90-120 g protein/day (1.5-2 [...] - SBA - Has been NPO since PR but is not on the surgical schedule or as an add on. (she would li ke her Port removed so she can go home on antx) Maggy Abbott RN - 12/25/2017 4:50 PM PSTNursing Handoff Patient Daily Goal: "Find out what's going on" (12/24/17 0800) Patient Specific Preferences: Patient goes by "Aura" (12/24/17 08) [facility] IP NURSE HANDOFF: Ivey hospital course events: [...] Preferences: Patient goes by "Aura" (12/24/17 08) [facility] IP NURSE HANDOFF: Ivey hospital course events: [...] might be different fro m the original. [facility] MEDICAL ICU - TRANSFER SUMMARY Hospital Day: 1 | ICU Day: 1 Disposition: Acute Care ID/CC: Aura Upton is a 57 y.o. woman w/ metastatic cholangiocarcinoma (on palliative chemotherapy with gemcitabine/cisplatin q3wk) admitted to the MICU from [place] after chem otherapy attempt for suspected septic [...] and Cefepime at OSH and transported to [facility] via plane. In route, BPs were stable with MAPs >65. On arrival to MICU, BP stabilized at 93/62, HR 68, T 98.1. Of note, she was hospitalized a month ago at [facility] for severe sepsis of uncl ear etiology and received 14 days of antibiotics. Pt states she underwent several test witho ut a clear source being found (do not currently have those records). She returned home on [facility] after that hospitalization as they would only discharge her on hospice or to a SNF. Sh e has improved and was restarting chemo on day of admission. Denies recent nightsweats, chills, cough, chest pain, or SOB. Endorses that she developed s harp RUQ pain while in commute to [facility]. Denies N/V/D/C, hematochezia, dysuria. No rashes or [...] gemcitabine/carboplatin q3wk) admitted to the MICU from [place] for suspecte d septic shock. # Septic [...] for her ongoing chemotherapy. - [place] Office: [phone] (Tuesday and Tuesday) - she goes to this office - Arcadio Ervin Office: [phone] Feeding: PO diet Analgesia: Hydromorphone, Fentanyl patch, [...] Maker Primary Surrogate Decision Maker Poncho Oquendo [phone] Vital Signs: Cuff BP (!) 84/59 (12/24/171599) [...] consistent with P NA or atelectasis CXR ([facility]) 12/24: Minimal bibasilar subsegmental atelectasis. No focal [...] | | POC | | PST | ([facility]) | results section. | + +--------+ [...] | | POC | | PST | ([facility]) | results section. | + +--------+ [...] | | POC | | PST | ([facility]) | results section. | + +--------+ + + + | CAPILLARY BLOOD | Routin | 12/26/2017 | Sepsis, due to | Results for this | | GLUCOSE (NO CHG), | e | 11:23 AM | unspecified organism | procedure are in the | | POC | | PST | ([facility]) | results section. | + +--------+ + + + | CAPILLARY BLOOD | Routin | 12/26/2017 | Sepsis, due to | Results for this | | GLUCOSE (NO CHG), | e | 10:12 AM | unspecified organism | procedure are in the | | POC | | PST | ([facility]) | results section. | + +--------+ [...] | | POC | | PST | ([facility]) | results section. | + +--------+ + + + | CAPILLARY BLOOD | Routin | 12/25/2017 | Sepsis, due to | Results for this | | GLUCOSE (NO CHG), | e | 1:41 PM | unspecified organism | procedure are in the | | POC | | PST | ([facility]) | results section. | + +--------+ [...] | | POC | | PST | ([facility]) | results section. | + +--------+ + + + | CAPILLARY BLOOD | Routin | 12/25/2017 | Sepsis, due to | Results for this | | GLUCOSE (NO CHG), | e | 12:31 AM | unspecified organism | procedure are in the | | POC | | PST | ([facility]) | results section. | + +--------+ [...] | + +--------+ + + + | [employer] LAB PORTAL / | Routin | 12/24/2017 [...] | | POC | | PST | ([facility]) | results section. | + +--------+ [...] GWEN BRUNNER | [address] | [place], [place] | | | [facility] | [address] | [address] | | | TESTS | | | [...] - | | | | | | [place] | | + + + + + [...] + | [facility] - AIRPORT - | [address] | [place] [address] | | | [place] | | | [...] MARQU[facility] | [address] | [place], [place] | | | [facility] CARE | [address] | [address] | | | TESTS | | | [...] KANNAN | [address] | [place], [place] | | | DG POINT OF CARE | [address] | [address] | | | TESTS | | | [...] [facility] | [address] | [place] [address] | | | SERVICES, CORE | PARK [...] | | | LABORATORY | | | KITTITIAN | | | SERVICES, | | | [...] | + + + + + | [facility] [employer] | [address] | [place] [address] | | | SERVICES, CORE | VELMA [...] MARQUAM | [address] | [place], [place] | | | DG POINT OF CARE | [address] | [address] | | | TESTS | | | [...] MARQUAM | [address] | [place], [place] | | | DG POINT OF CARE | [address] | [address] | | | TESTS | | | [...] + + + | [facility] | [address] | [place], [place] | | | DG POINT OF CARE | [address] | [address] | | | TESTS | | | [...] | | | LABORATORY | | | KITTITIAN | | | SERVICES, | | | [...] | + + + + + | [facility] | [address] | [place] [address] | | | SERVICES, CORE | VELMA [...] BRUNNER | [address] | [place], [place] | | | JOHN CONTE [facility] ARJUN | [facility] | [address] | | | TESTS | | | [...] - KANNAN | [address] | [place], [place] | | | [facility] | [facility] | [address] | | | TESTS | | | [...] | + + + + + | [facility] | [address] | [place] [address] | | | GAVIN, SAM | VELMA [...] | + + + + + | [facility] | [address] [facility] | [place] [address] | | | SERVICES, CORE | VELMA [...] | + + + + + | [facility] | [address] | [place] [address] | | | SERVICES, CORE | PARK [...] [facility] | [address] | [place] [address] | | | SERVICES, CORE | PARK [...] | + + + + + | [facility] | [address] [facility] | [place] [address] | | | SERVICES, [facility] | [address] | | | + [...] | | | LABORATORY | | | KITTITIAN | | | SERVICES, | | | [...] | + + + + + | [facility] | [address] [facility] | [place] [address] | | | SAM ALONSO | VELMA [...] MARQUAM | [address] | [place], [place] | | | DG POINT OF CARE | [address] | [address] | | | TESTS | | | [...] + + + | GWEN BRUNNER | [address] | [place], [place] | | | JOHN CONTE OF CARE | [address] | [address] | | | TESTS | | | [...] Note | + + | Service Account, Three Ring Res In Interface - 12/24/2017 9:33 PM [...] [facility] | [address] | [place] [address] | | | SERVICES, CORE | PARK [...] | + + + + + | [facility] | [address] | [place] [address] | | | SERVICES, CORE | PARK [...] | + + + + + | [facility] | [address] | [place] [address] | | | SERVICES, SAM | VELMA [...] | + + + + + | [facility] [employer] | [address] | [place] [address] | | | SERVICES, CORE | VELMA [...] Note | + + | Service Account, Sonian In Interface - 12/24/2017 4:55 PM PST [...] At | + + + | EXAM: PA CHEST 1 VIEW HISTORY: fever COMPARISON: Outside [...] Note | + + | Service Account, Three Ring Res In Interface - 12/24/2017 1:05 PM PST EXAM: PA CHEST 1 | | VIEW HISTORY: fever [...] [facility] | [address] | [place] [address] | | | SERVICES, SAM | VELMA [...] | + + + + + | [facility] | [address] | [place] [address] | | | SERVICES, CORE | VELMA [...] [facility] | [address] | [place] [address] | | | SERVICES, CORE | PARK [...] | | | LABORATORY | | | KITTITIAN | | | SERVICES, | | | [...] [facility] | [address] | [place] [address] | | | SERVICES, CORE | PARK [...] | + + + + + | [employer] | [address] | [place] [address] | | | SERVICES, CORE | VELMA [...] DEPT OF | [address] | [place], [place] | | | CARDIOLOGY | [address] | [address] | | + + + + + [...] MARQUAM | [address] | [place], [place] | | | JOHN CONTE OF CARE | [address] | [address] | | | TESTS | | | [...] [facility] | [address] | [place] [address] | | | SERVICES, CORE | PARK [...] | + + + + + | [facility] | [address] [facility] | [place] [address] | | | SERVICES, CORE | PARK [...] | + + + + + | [facility] | [address] | [place] [address] | | | SERVICES, CORE | PARK [...] LABORATORY | [address] | [place] [address] | | | SERVICES, CORE [...] | + + + + + | [facility] | [address] | [place] [address] | | | SERVICES, | [address] [...] [facility] | [address] | [place] [address] | | | SERVICES, | [address] [...] [facility] | [address] | [place] [address] | | | SERVICES, [facility] | [address] | | | + [...] | | | LABORATORY | | | KITTITIAN | | | SERVICES, | | | | | | CORE | | + + + + + + | EGFR NON | 41 (L) | >60 mL/min | [facility] | | | -DIMSA | | | LABORATORY | | | [...] | + + + + + | [employer] | [address] | [place] [address] | | | SERVICES, SAM | VELMA [...]
--- OUTSIDE RECORDS SUMMARY | ~2019-10-19 | XMS | Encounter Summary ---
Demographics + + + | Address | [address] | | | [place] [address] | + + + | Home Phone [...] | Author | [facility] | | | and [place] | + + + | Organization | [facility] | | | and [place] | + + + | Address | Unknown | + + + | Phone | Unavailable | + + + Support + + + + + | Name | Relationship | Address | Phone | + + + + + | Poncho Oquendo | ECON | [address] | | | | | [place] | | | | | [address] | | + + + + + | Marta Upton | ECON | [place] | | | | | [address] | | + + + + + Care Team Providers + +------+ + | Care Psychiatric Orderly Name | Role | Phone | [...] | | | | | Procedures | [address] | [address] | | | | | [place] OFFICE | Phone: | [place] | | | | | OUTPATIENT | [phone] | [address] | | | | | VISIT 25 | Fax: | Phone: | | | | | MINUTES | [phone] | [phone] | | | | | | | Fax: | | | | | | | [phone] | +--------+--------+ + + + + Encounter Details +--------+ + + + + | Date | Type | Department | Care Team | Description | +--------+ + + + + | 05/21/ | Hospital | [facility] | Mathieu Langford | Gallbladder cancer, | | 2017 | Encounter | [facility] | MD Epifanio [address] | carcinoma (HCC) | | | | ONCOLOGY CLINIC [address] | [facility] | (Primary Dx) | | | | [facility] | [place] [address] | | | | | [place] [address] | [phone] | | | | | [phone] | | | +--------+ + + + [...] erent from the original. Hem-Onc Progress Note [facility] Pt. Name/Age/: Aura Upton 55 y.o. 1960 Med. Record Number: [id number] Date of admission: 05/21/2016 Assessment and plan: [...] Electronically signed by: Mathieu Langford, 05/21/2016 9:08 [facility] TIME SPENT 20 MIN. > 50% AT BEDSIDE, WITH FAMILY/PATIENT IN CARE AND SYSTEM ANALYST ON UNIT AND CO ORDINATION OF CARE Portions of this chart may have been created with [email or web address] Textbook Time voice recognition software. Occasi onal wrong-word or [...] 2019 | Visit | | DO [address] | | | | | | [place] [address] | | | | | | [phone] | | | | | | | [...] [place] | | | | | | [address] | | | | + + + [...] [address] | [place] [address] | [phone] | + + + + + Lactate [...] + | [facility] | [address] | [place] | [phone] | | [facility] | | [address] | | | - LABORATORY | | [...] | mL/min/1.73m2 | [facility] | | | [place] | RATE,ESTIMATED | | MEDICAL | | | | mL/min/1.10m3Xadx than | | CENTER - | | [...] [address] | [place] | [phone] | | [facility] | | [address] | | | - LABORATORY | | [...] [address] | [place] | [phone] | | [facility] | | [address] | | | - LABORATORY | | [...] [address] | [place] | [phone] | | [facility] | | [address] | | | - LABORATORY | | | | + + + + + documented in this encounter Visit Diagnoses + + | Diagnosis | + + | Gallbladder cancer, 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
--- OUTSIDE RECORDS SUMMARY | ~2019-10-19 | XMS | Encounter Summary ---
Demographics + + + | Address | [address] | | | [place] [address] | + + + | Home Phone [...] + | Poncho Oquendo | ECON | [address] | | | | | [place] | | | | | [address] | | + + + + + | Marta Upton | ECON | [place] | | | | | [address] | | + + + + + Care Team Providers + +------+ + | Care Ride Attendant Name | Role | Phone | [...] MED CTR PROVIDER | Epifanio Soler MD 1704 | carcinoma (HCC) | | | | ONCOLOGY [address] | [facility] | | | | | [place], | [address] [place] | | | | | [place] [address] | [address] | | | | | [phone] | | | +--------+ + + + [...] | | | | | [place] [address] | | | | | | [phone] | | | | | | | | +--------+---------+ + + + documented as of this encounter Visit Diagnoses + + | Diagnosis | + + | Gallbladder cancer, carcinoma (HCC) Malignant neoplasm of gallbladder | + + documented in this encounter"
--- OUTSIDE RECORDS SUMMARY | ~2019-10-19 | XMS | Encounter Summary ---
Demographics + + + | Address | [address] | | | [place] [address] | + + + | Home Phone [...] Providers + +------+ + | Care Hand Edge Bander Name | Role | Phone | + [...] | | | Reconstructive | Velma [place], | her employer.) | | | | Services at [facility] | [place] [address] | | | | | [address] | [phone] | | | | | [facility] | | | | | | and Healing, | | | | | | Building | | | | | | [place], [place] | | | | | | [address] | | | | | | [phone] | | | +--------+ + + + [...]
--- OUTSIDE RECORDS SUMMARY | ~2019-10-19 | XMS | Encounter Summary ---
Demographics + + + | Address | [address] | | | [place] [address] | + + + | Home Phone [...] | Author | [facility] | | | and [place] | + + + | Organization | [facility] | | | and [place] | + + + | Address | Unknown | + + + | Phone | Unavailable | + + + Support + + + + + | Name | Relationship | Address | Phone | + + + + + | Poncho Oquendo | ECON | [address] | | | | | [place] | | | | | [address] | | + + + + + | Marta Upton | ECON | [place] | | | | | [address] | | + + + + + Care Team Providers + +------+ + | Care Cafe Site Attendant Name | Role | Phone | [...] | | | [facility]OGY CLINIC 401 | [facility] | of other site in | | | | [address] | [address] [place], [place] | gastrointestinal | | | | [place] [address] | [address] | tract (Primary Dx) | | | | [phone] | | | +--------+ + + + [...] [address] | | | | | | [place] [address] | | | | | | [phone] | | | | | | | [...] + | [facility] | [address] | [place] | [phone] | | [facility] | | [address] | | | - LABORATORY | | | | + + + + + | [facility] | [address] | [place] | | | [facility] | | [address], [facility] | | | - LABORATORY [...] | | | | | | [place] [address] | | | | + + + [...] | [address] | [place] [address] | [phone] | + + + + + Lactate [...] + | [facility] | [address] | [place] | [phone] | | [facility] | | [address] | | | - LABORATORY | | | | + + + + + | [facility] | [address] | [place], [place] | | | [facility] | | [id number] [place] [address] | | | - LABORATORY | | [...] | non- | FILTRATION | mL/min/1.73m2 | [facility] | | | Mauritian | RATE,ESTIMATED | | MEDICAL | | | | mL/min/1.29k7Ysqo than | | CENTER - | | [...] | | | | | mg/dL | [facility] | | | | | | [...] + | [facility] | [address] | [place], [place] | [phone] | | [facility] | | [address] | | | - LABORATORY | | | | + + + + + | [facility] | [address] | [place], [place] | | | [facility] | | [address], [facility] | | | - LABORATORY [...] Address | City/[facility]/Zipcode | Phone Number | | Organization | | | | + + + + + | [facility] | [address] | [place] | [phone] | | [facility] | | [address] | | | - LABORATORY | | | | + + + + + | [facility] | [address] | [place], [place] | | | [facility] | | [address], [place] | | | - LABORATORY | | | | + + + + + documented in this encounter Visit Diagnoses + + | Diagnosis | + + | Personal history of malignant neoplasm of other site in gastrointestinal tract - | | Primary | + + documented in this encounter"
--- OUTSIDE RECORDS SUMMARY | ~2019-10-19 | XMS | Encounter Summary ---
Demographics + + + | Address | [address] | | | [place] [address] | + + + | Home Phone [...] + | Poncho Oquendo | ECON | [address] | | | | | [place] | | | | | [address] | | + + + + + | Marta Upton | ECON | [place] | | | | | [address] | | + + + + + Care Team Providers + +------+ + | Care Field Traffic Investigator Name | Role | Phone | [...] | | Carcinoma | Reinaldo, | [address] [place] | | | | | of opal | Epifanio Soler, | [place], | | | | | bladder | [address] | [place] [address] | | | | | (HCC) | [facility]IST | Phone: | | | | | Procedures | [address] | [phone] | | | | | CT Abdomen | [place], | Fax: | | | | | Pelvis w | [place] [address] | [phone] | | | | | Contrast | Phone: | | | | | | | [phone] | | | | | | | Fax: | | | | | | | [phone] | | +--------+--------+ + + + + [...] | (Primary Dx) | | | | [place], | [address] [place] | | | | | [place] [address] | [address] | | | | | [phone] | | | +--------+ + + + [...] | | | | | [place] [address] | | | | | | [phone] | | | | | | | [...] ST. | [address] | [place] | [phone] | | [facility] | | [address] | | | - LABORATORY | | [...] | | | | | | [place] [address] | | | | + + + + + + + + | Specimen | + + | Blood specimen | | (specimen) | + + + + + + + | Performing | Address | City/State/Zipcode | Phone Number | | Organization | | | | + + + + + | [facility] | [address] | [place] [address] | [phone] | + + + + + Lactate [...] [address] | [place] | [phone] | | [facility] | | [address] | | | - LABORATORY | | [...] | non- | FILTRATION | mL/min/1.73m2 | [facility] | | | Algerian | RATE,ESTIMATED | | MEDICAL | | | | mL/min/1.93k5Dwez than | | CENTER - | | [...] ST. | [address] | [place], [place] | [phone] | | [facility] | | [address] | | | - LABORATORY | | [...] LEYVA. | [address] | [place] | [phone] | | [facility] | | [address] | | | - LABORATORY | | | | + + + + + documented in this encounter Visit Diagnoses + + | Diagnosis | + + | 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
--- OUTSIDE RECORDS SUMMARY | ~2019-10-19 | XMS | Encounter Summary ---
Demographics + + + | Address | [address] | | | [place] [address] | + + + | Home Phone [...] + | Poncho Oquendo | ECON | [address] | | | | | [place] | | | | | [address] | | + + + + + | Marta Upton | ECON | [place] | | | | | [address] | | + + + + + Care Team Providers + +------+ + | Care Binding Dyer Name | Role | Phone | + [...] ONCOLOGY CLINIC 401 | [facility] | | | | | [address] | [address] [place] | | | | | [place] [address] | [address] | | | | | [phone] | | | +--------+ + + + [...] [address] | | | | | | [place] [address] | | | | | | [phone] | | | | | | | | +--------+---------+ + + + documented as of this encounter Visit Diagnoses Not on filedocumented in this encounter"
--- OUTSIDE RECORDS SUMMARY | ~2019-10-19 | XMS | Encounter Summary ---
Demographics + + + | Address | [address] | | | [place] [address] | + + + | Home Phone [...] + | Poncho Oquendo | ECON | [address] | | | | | [place] | | | | | [address] | | + + + + + | Marta Upton | ECON | [place] | | | | | [address] | | + + + + + Care Team Providers + +------+ + | Care Hvac Project Engineer Name | Role | Phone | [...] [address] | | | | 02/13/ | | [place], [place] | | | | 2012 | | [address] | | | | | | [phone] | | | +--------+ + + + [...] | | | | | [place] [address] | | | | | | [phone] | | | | | | | [...] + + + | Red Blood | 4.67 | 3.70 - 5.20 | [...] | | Monocytes | | | [facility] | | [...] | [facility] | [address] | [place] | [phone] | | [facility] | | [address] | | | - LABORATORY | | | | + + + + + | [facility] | [address] | [place], [place] | | | [facility] | | [address] [place] [address] | | | - LABORATORY | | [...] | | | | [address] [place], [place] | | | | | | [address] CLIA: | | | | | | [id number] | | | | + + + + + + + + | Specimen | + + | | + + + + + + + | Performing | Address | City/State/Zipcode | Phone Number | | Organization | | | | + + + + + | [facility] | [address] | [place] | [phone] | | [facility] | | [address] | | | - LABORATORY | | | | + + + + + | [facility] | [address] | [place] | | | [facility] | | [id number] [place] [address] | | | - LABORATORY | | [...] | + + + + + | [facility] | [address] | [place] | [phone] | | [facility] | | [address] | | | - LABORATORY | | | | + + + + + | [facility] | [address] | [place] | | | [facility] | | [address], [facility] | | | - [...] | + + + + + | [facility] | [address] | [place] | [phone] | | [facility] | | [address] | | | - LABORATORY | | | | + + + + + | [facility] | [address] | [place], [place] | | | [facility] | | [address] | | | - LABORATORY | | | | + + + + + documented in this encounter Visit Diagnoses Not on filedocumented in this encounter"
--- OUTSIDE RECORDS SUMMARY | ~2019-10-19 | XMS | Encounter Summary ---
Demographics + + + | Address | [address] | | | [place] [address] | + + + | Home Phone [...] | Poncho Omar Oquendo | ECON | [address] | | | | | [place] | | | | | [address] | | + + + + + | Marta Upton | ECON | [place] | | | | | [address] | | + + + + + Care Team Providers + +------+ + | Care Cosmetologist Apprentice Name | Role | Phone | [...] | | renal and | [place], | [place], [place] | | | | | ureteral | [place] | [address] Phone: | | | | | calculous | [address] | [phone] | | | | | obstruction | Phone: | Fax: | | | | | | [phone] | [phone] | | | | | | Fax: | | | | | | | [phone] | | +--------+--------+ + + + + Encounter Details +--------+---------+ + + + | Date | Type | Department | Care Team | Description | +--------+---------+ + + + | 03/26/ | Office | [facility] | Pedro Green, | Gallbladder cancer, | | 2019 | Visit | UROLOGY [address] | DO [address] | carcinoma (HCC) | | | | [address] | [place] [address] | (Primary Dx); | | | | [place], [place] | [phone] | Obstruction of left | | | | [address] | | ureter | | | | [phone] | | | +--------+---------+ + + + [...] encounter Patient Instructions Patient Instructions Eleonora Saxena, Substance Abuse Counselor - 03/26/2019 10:30 AM PSTPLAN : Proceed [...] MUST receive a cardiac clearance from your psychologist counseling prior to surgery. 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 Location: [facility] ([address] [place], [place] [address] [place] [address]) Time: You will receive a call around [...] related questions or concerns, please contact our Substance Abuse Counselor Christine parikh at PLAN : Proceed with [...] MUST receive a cardiac clearance from your psychologist counseling prior to surgery. Family members (tractor trailer moving van driver) need to stay here during the procedure and can leave once patient is discharged. Location: [facility] ([address] [place], [place] [address] [address]) Time: You will receive a call around [...] related questions or concerns, please contact our Substance Abuse Counselor Christine parikh at documented in this encounter Progress Notes Pedro Green DO - 03/26/2019 10:30 AM PSTFormatting of this note might be different fr om the original. [facility] Urology Primary Care Provider: No Physician [...] this well. Her last exchange was at [facility] during a septic episode. Her last [...] STENT stent removal and replacement; Surgeon: Pedro ckoer DO; Location: [facility] MAIN OR HYSTERECTOMY LIVER SURGERY OTHER SURGICAL HISTORY UNLISTED PROCEDURE ARTHROSCOPY OTHER SURGICAL HISTORY MEDIPORT INSERTION SINGLE OTHER SURGICAL HISTORY HARDWARE PRESENT OTHER SURGICAL HISTORY Left 07/05/2018 CYSTOSCOPY W/ URETERAL STENT PLACEMENT - Procedure: CYSTOSCOPY - STENT; Surgeon: Pedro Green DO; Location: [facility] MAIN OR; Service: Urology; Laterality: [...] [address] | | | | | | [place] [address] | | | | | | [phone] | | | | | | | | +--------+---------+ + + + documented as of this encounter Visit Diagnoses + + | Diagnosis | + + | Gallbladder cancer, 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
--- OUTSIDE RECORDS SUMMARY | ~2019-10-19 | XMS | Encounter Summary ---
Demographics + + + | Address | [address] | | | [place] [address] | + + + | Home Phone [...] + | Poncho Oquendo | ECON | [address] | | | | | [place] | | | | | [address] | | + + + + + | Marta Upton | ECON | [place] | | | | | [address] | | + + + + + Care Team Providers + +------+ + | Care Land Use Planner Name | Role | Phone | [...] + + | 09/12/ | Telephone | [facility] | Reinaldo, | Other | | 2018 | | [facility] | Epifanio Soler MD [address] | | | | | [facility] | [facility] | | | | | [address] | [address], [place] | | | | | [place] [address] | [id number] | | | | | [phone] | | | +--------+ + + + [...] will need to have these things through [facility] but they require an order The fax [phone] They also said they need the ICD 10 code. Please call patient and let her know when this is done. [phone] Thank you documented in this encou nter Plan of Treatment +--------+---------+ + + + | Date | Type | Specialty | Care Team | Description | +--------+---------+ + + + | 10/29/ | Office | Urology | Pedro Geren, | | | 2019 | Visit | | DO Vaishali HIGHTOWER | | | | | | [place] [address] | | | | | | [phone] | | | | | | | | +--------+---------+ + + + documented as of this encounter Visit Diagnoses Not on filedocumented in this encounter"
--- OUTSIDE RECORDS SUMMARY | ~2019-10-19 | XMS | Encounter Summary ---
Demographics + + + | Address | [address] | | | [place] [address] | + + + | Home Phone [...] + | Poncho Oquendo | ECON | [address] | | | | | [place] | | | | | [address] | | + + + + + | Marta Upton | ECON | [place] | | | | | [address] | | + + + + + Care Team Providers + +------+ + | Care Insulator Tester Name | Role | Phone | [...] MED CTR PROVIDER | Epifanio Soler MD 2561 | ([facility]) (Primary Dx) | | | | ONCOLOGY [address] 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
--- OUTSIDE RECORDS SUMMARY | ~2019-10-19 | XMS | Encounter Summary ---
Demographics + + + | Address | [address] | | | [place] [address] | + + + | Home Phone [...] + | Poncho Oquendo | ECON | [address] | | | | | [place] | | | | | [address] | | + + + + + | Marta Upton | ECON | [place] | | | | | [address] | | + + + + + Care Team Providers + +------+ + | Care Senior Lead Java Developer Name | Role | Phone | [...] [place] | | | | | | [place] [address] | | | | | | [phone] | | | +--------+ + + + [...] [address] | | | | | | [place] [address] | | | | | | [phone] | | | | | | | | +--------+---------+ + + + documented as of this encounter Visit Diagnoses Not on filedocumented in this encounter"
--- OUTSIDE RECORDS SUMMARY | ~2019-10-19 | XMS | Encounter Summary ---
Demographics + + + | Address | [address] | | | [place] [address] | + + + | Home Phone [...] [facility] [place] | | | and [place] | + + + | Organization | [facility] [place] | | | and [place] | + + + | Address | Unknown | + + + | Phone | Unavailable | + + + Support + + + + + | Name | Relationship | Address | Phone | + + + + + | Poncho Oquendo | ECON | [address] | | | | | [place] | | | | | [address] | | + + + + + | Marta Upton | ECON | [place] | | | | | [address] | | + + + + + Care Team Providers + +------+ + | Care Director Of Religious Activities Name | Role | Phone | + [...] | (HCC) | [place] | [place] [address] | | | | | Procedures | [address] | Phone: | | | | | [place] CISPLATIN | OBED, | [phone] | | | | | 10 MG | [place] [address] | Fax: | | | | | INJECTION | Phone: | [phone] | | | | | [place] | [phone] | | | | | | GEMCITABINE | Fax: | | | | | | HCL | [phone] | | | | | | INJECTION, [...] + + | 08/06/ | Hospital | [facility] | Vladimir Robles, | Gallbladder cancer, | | 2017 | Encounter | MED CTR CHEMO | MD [address] | carcinoma (HCC) | | | | INFUSION [address] [place], | | | | | [place], | [place] [address] | | | | | [place] [address] | [phone] | | | | | [phone] | | | +--------+ + + + [...] [address] | | | | | | [place] [address] | | | | | | [phone] | | | | | | | [...] the | | | | PDT | ([facility]) | results section. | + +--------+ + + + | LACTATE | STAT | 08/06/2016 | Gallbladder | Results for this | | DEHYDROGENASE | | 8:49 AM | cancer, carcinoma | procedure are in the | | | | PDT | ([facility]) | results section. | + +--------+ + + + | CEA | STAT | 08/06/2016 | Gallbladder | Results for this | | | | 8:49 AM | cancer, carcinoma | procedure are in the | | | | PDT | ([facility]) | results section. | + +--------+ + + + | COMPREHENSIVE | STAT | 08/06/2016 | Gallbladder | Results for this | | METABOLIC PANEL | | 8:49 AM | cancer, carcinoma | procedure are in the | | | | PDT | ([facility]) | results section. | + [...] + | [facility] | [address] | [place] | [phone] | | [facility] | | [address] | | | - LABORATORY | | [...] [place] | | | | | | [address] | | | | + + + + + + + + | Specimen | + + | Blood | + + + + + + + | Performing | Address | City/State/Zipcode | Phone Number | | Organization | | | | + + + + + | [facility] | [address] | [place] [address] | [phone] | + + + + + Lactate [...] + | [facility] | [address] | [place] | [phone] | | [facility] | | [address] | | | - LABORATORY | | [...] mL/min/1.73m2 | [facility] | | | [place] | RATE,ESTIMATED | | MEDICAL | | | | mL/min/1.47c5Jvcw than | | CENTER - | | [...] + | [facility] | [address] | [place] | [phone] | | [facility] | | [address] | | | - LABORATORY | | [...] [address] | [place] | [phone] | | [facility] | | [address] | | | - LABORATORY | | [...] [address] | [place] | [phone] | | [facility] | | [address] | | | - LABORATORY | | [...]
--- OUTSIDE RECORDS SUMMARY | ~2019-10-19 | XMS | Encounter Summary ---
Demographics + + + | Address | [address] | | | [place] [address] | + + + | Home Phone [...] + | Poncho Oquendo | ECON | [address] | | | | | [place] | | | | | [address] | | + + + + + | Marta Upton | ECON | [place] | | | | | [address] | | + + + + + Care Team Providers + +------+ + | Care Bolting Machine Operator Name | Role | Phone | + +------+ + | Valeriy Carmona DO | TAWNYA | | + +------+ + Encounter Details +--------+ + + + + | Date | Type | Department | Care Team | Description | +--------+ + + + + | 07/05/ | Hospital | [facility] | Pedro Green, | | | 2019 | Encounter | [facility] | DO [address] | | | | | [address] | [place] [address] | | | | | [place], [place] | [phone] | | | | | [address] | | | | | | [phone] | | | +--------+ + + + [...] Date of Service: 07/05/18 154 Status: Signed Teacher Learning Disabled: Erika Lorenzana RN (Registered Nurse) Discharge instructions, [...] Note by Pedro Green DO at 07/05/18 1310 Author: Pedro Green DO Service: Urology Author Type: Physician Filed: 07/05/18 1320 Date of Service: 07/05/18 1319 Status: Signed Teacher Learning Disabled: Pedro Green DO (Physician) [facility] Service: Urology Pre-Operative History & [...] 06/08/1804 Date of Service: 06/08/18729 Status: Signed Teacher Learning Disabled: Pedro Green DO (Physician) [facility] Urology Primary Care Provider: No primary [...] well. Her last excha nge was at [facility] during a septic episode. Her last [...] 06/08/1804 Date of Service: 06/08/18729 Status: Signed Teacher Learning Disabled: Pedro Green DO (Physician) [facility] Urology Primary Care Provider: No primary [...] well. Her last excha nge was at [facility] during a septic episode. Her last [...] Note by Pedro Green DO at 07/05/18 1426 Author: Pedro Green DO Service: Urology Author Type: Physician Filed: 07/06/18 0957 Date of Service: 07/05/181421 Status: Signed Teacher Learning Disabled: Pedro Green DO (Physician) Related Notes: Original Note by Pedro Green DO (Physician) filed at 07/05/18 6919 [facility] Service: Urology Operative Note Pre-operative Diagnosis: Indwelling stent, history of biliary cancer Post-operative Diagnosis: Same Procedure(s): Cystoscopy, complicated left stent removal, left retrograde pyelogram, left ureteral stent placement Surgeon: Pedro Green DO Boiler/Chiller Technician(s): NA Anesthesia: General LMA Estimated Blood Loss: [...] po sition. Following a preoperative pause, the 21.5-Bahamian cystoscopic sheath with 30 degree l ens [...] catheter was placed over top of w aditya up to the renal collecting system and another retrograde pyelogram was performed confirm ing proximal hydronephrosis, also confirming that the wire had been in good position. The w aditya was then replaced, catheter was removed. Next, the previous catheter was again examined with a 7-Bahamian x 24 cm ureteral stent. Given the patient's comfort level with this, we de cided to proceed with this again and finally a 7-Bahamian x 24 cm ureteral catheter was placed [...] 2019 | Visit | | DO [address] | | | | | | [place] [address] | | | | | | [phone] | | | | | | | [...]
--- OUTSIDE RECORDS SUMMARY | ~2019-10-19 | XMS | Encounter Summary ---
Demographics + + + | Address | [address] | | | [place] [address] | + + + | Home Phone [...] Team Providers + +------+ + | Care Carton And Can Supply Supervisor Name | Role | Phone | + +------+ + | Tomasa Wagner | PCP | | + +------+ + Encounter Details +--------+ + + + + | Date | Type | Department | Care Team | Description | +--------+ + + + + | 06/28/ | Telephone | [facility] | Tai Stanton, | | | 2012 | | Center at [facility] [address] | [address] [facility] | | | | | [facility] | [facility] | | | | | for Health and | [place], [place] | | | | | [facility] [place] [address] | [address] | | | | | [place], [place] | [phone] | | | | | [address] | | | | | | [phone] | | | +--------+ + + + [...] returning the RN's call. Call back TEL [phone] signed by Palma Lloyd at 06/29/2012 4:14 PM PDTT elephone Encounter - Epifanio Trujillo - 06/29/2012 3:09 PM PDTPATIENT LEFT VOICE MESSAGE 06/29 10:16 Patient states she is returning Silvia's call. And asking for call back at [phone] elephone Encounter - Willie Keita - 06/28/2012 2:05 PM PDTPt calling stating that she has a seroma which is causin g her pain b/c it is beginning to heal around the edges despite her chemo. Additionally she has been bleeding. 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
--- OUTSIDE RECORDS SUMMARY | ~2019-10-19 | XMS | Encounter Summary ---
Demographics + + + | Address | [address] | | | [place] [address] | + + + | Home Phone [...] + +------+ + | Care Dean Of Boys Name | Role | Phone | + [...] | | | | | | [place] | | | | | | [address] | | | +--------+ + + + [...] capsule by | 60 | 2 | / | | | (COLACE) 100 mg oral [...] | + +--------+ + + + | GENETRAFATUMA SOLID | Routin | 03/23/2016 | | Results for this | | TUMOR PANEL | e | | | procedure are in the | | | | | | results section. | + +--------+ + + + documented in this encounter Results [employer] SOLID TUMOR PANEL (03/23/2016) + + + + + + | Component | Value | Ref Range | Performed | Pathologist | | | | | At | Signature | + + + + + + | [facility] | A [employer] Solid Tumor | | [facility] | | | SOLID TUMOR | PanelSpecimen [...] | | | | | | al. J Molec Diag 19(1), | | | | | [...] | | | | | | NTRK1 [id number] | | | | | | CDKN2A FGF18 | | | | | | KRAS NTRK2 | | | | | | VNO31ZCH4 CHEK1 | | | | | | FGF19 MAP2K1 | | | | | | NTRK3 FDG64IHSI | | | | | | CHEK2 FGF3 | | | | | | MAP2K2 PALB2 | | | | | | EJU8KXI CTNNB1 | | | | | | FGF4 MAP2K4 | | | | | | AGFP1MB3 PZHO6FQ | | | | | | DDR2 FGFR1 MAPK1 | | | | | | PDGFRA | | | | | | QO3KHIU DDX11 | | | | | | FGFR2 MDC1 PIK3CA | | | | | | LEQXHRA5K EGFR | | | | | | FGFR3 MDM2 PIK3CB | | | | | | RICTORATM ERBB2 | | | | | | FGFR4 MDM4 | | | | | | PIK3R1 LTM2POH | | | | | | ERBB3 GNA11 | | | | | | MET PMS1 QQC5TOW4 | | | | | | ERBB4 GNAQ MLH1 | | | | | | PMS2 RPTORBARD1 | | | | | | ERCC2 GNAS MLH3 | | | | | | POLE WEFZ6RZPD ERCC5 | | | | | | QZEV1O7H MRE11A | | | | | | JOZ9R9N XKGQ8ZDIV3 | | | | | | ESR1 HRAS MSH2 | | | | | | PPP6C TYX22GEPX4 | | | | | | YMB680C IDH1 | | | | | | MSH6 PTCH1 | | | | | | JRO4XCKY1 FANCA | | | | | | IDH2 MTOR PTEN | | | | | | [id number] FANCC | | | | | | IDO1 MUTYH | | | | | | RAC1 [id number] | | | | | | FANCD2 IDO2 MYC | | | | | | RAD50 SXW3LRHR2 | | | | | | FANCE INPP4B | | | | | | NBN RAD51 | | | | | | [id number] FANCF | | | | | | JAK2 NF1 | | | | | | [id number] | | | | | | FANCG [...] | | | | | | MSH2 AACN2056.1 | | | | | | c.980C>T hg19 chr2 | | | | | | [id number] C | | | | | | TTP53 [id number] | | | | | | c.743G>A hg19 chr17 | | | | | | [id number] | | | | | | C [...] # | | | | | | [id number]. It has not | | | | | | been cleared orapproved | | | | | | by the U.S. Food and | | | | | | Drug Administration.) | | | | | | Case reviewed | | | | | | by:Mode Ricketts, | | | | | | M.D. /Pathologist | | | | | | | | | | | | This test was | | | | | | developed and its | | | | | | performance | | | | | | characteristics | | | | | | determined bythe [facility] | | | | | | Carter [...] | | | | | | The [facility] Carter | | | | | | DiagnosticsLaboratories | | | | | | are fully licensed by | | | | | | the state of [place] | | | | | | under CLIA and | | | | | | areaccredited by [facility] | | | | | | of Burmese | | | | | | Pathologists (JOSE GUADALUPE). | | | | | | Rendering | | | | | | Diagnostician: Mode | | | | | | Marcus Ricketts | | | | | | Dottiei [...] + + + + | [facility] | [address] | [place] [address] | | | DIAGNOSTIC | [address] | | | | LABORATORIES | | | | + + + + + documented in this encounter Visit Diagnoses Not on filedocumented in this encounter"
--- OUTSIDE RECORDS SUMMARY | ~2019-10-19 | XMS | Encounter Summary ---
Demographics + + + | Address | [address] | | | [place] [address] | + + + | Home Phone [...] Providers + +------+ + | Care Lead Bi Developer Name | Role | Phone | [...] | | | | | | [place] | | | | | | [address] | | | +--------+ + + + [...] + + documented in this encounter Results [employer] SOLID TUMOR PANEL (03/23/2016) + + + [...] | | | | | | NTRK1 [id number] | | | | | | CDKN2A FGF18 | | | | | | KRAS NTRK2 | | | | | | QQQ59WSP0 CHEK1 | | | | | | FGF19 MAP2K1 | | | | | | NTRK3 VHC21WUHL | | | | | | CHEK2 FGF3 | | | | | | MAP2K2 PALB2 | | | | | | WEJ6NKW CTNNB1 | | | | | | FGF4 MAP2K4 | | | | | | KNWD7BS4 VZDN3GA | | | | | | DDR2 FGFR1 MAPK1 | | | | | | PDGFRA | | | | | | VJ0TSNL DDX11 | | | | | | FGFR2 MDC1 PIK3CA | | | | | | MJLNHDE4O EGFR | | | | | | FGFR3 MDM2 PIK3CB | | | | | | RICTORATM ERBB2 | | | | | | FGFR4 MDM4 | | | | | | PIK3R1 FYG5VZT | | | | | | ERBB3 GNA11 | | | | | | MET PMS1 DVW1BMZ5 | | | | | | ERBB4 GNAQ MLH1 | | | | | | PMS2 RPTORBARD1 | | | | | | ERCC2 GNAS MLH3 | | | | | | POLE QEKC3FYUL ERCC5 | | | | | | DMBY7E5K MRE11A | | | | | | PNT9Z4H OZSB1YNZF1 | | | | | | ESR1 HRAS MSH2 | | | | | | PPP6C PCE07TBJI8 | | | | | | VXJ740K IDH1 | | | | | | MSH6 PTCH1 | | | | | | FAC8USKE6 FANCA | | | | | | IDH2 MTOR PTEN | | | | | | MV65LRJT7 FANCC | | | | | | IDO1 MUTYH | | | | | | RAC1 FTN7UUDP1 | | | | | | FANCD2 IDO2 MYC | | | | | | RAD50 RYG3ONEW7 | | | | | | FANCE INPP4B | | | | | | NBN RAD51 | | | | | | [id number] FANCF | | | | | | JAK2 NF1 | | | | | | [id number] | | | | | | FANCG [...] | | | | | | MSH2 TTGP8814.1 | | | | | | c.980C>T hg19 chr2 | | | | | | [id number] C | | | | | | TTP53 [id number] | | | | | | c.743G>A hg19 chr17 | | | | | | [id number] | | | | | | C [...] # | | | | | | [id number]. It has not | | | | [...] | | | | | determined bythe [facility] | | | | | | Carter [...] | | | | | | The [facility] Carter | | | | | | DiagnosticsLaboratories | | | | | | are fully licensed by | | | | | | the state of [place] | | | | | | under CLIA and | | | | | | areaccredited by [facility] | | | | | | of [place] | | | | | | Pathologists [...] + + + + | [facility] | [address] | [place] [address] | | | DIAGNOSTIC | [address] | | | | LABORATORIES | | | | + + + + + documented in this encounter Visit Diagnoses Not on filedocumented in this encounter"
--- OUTSIDE RECORDS SUMMARY | ~2019-10-19 | XMS | Encounter Summary ---
Demographics + + + | Address | [address] | | | [place] [address] | + + + | Home Phone [...] + | Poncho Oquendo | ECON | [address] | | | | | [place] | | | | | [address] | | + + + + + | Marta Upton | ECON | [place] | | | | | [address] | | + + + + + Care Team Providers + +------+ + | Care Lead Database Administrator Name | Role | Phone | [...] + + | 11/18/ | Telephone | [facility] | Reinaldo, | Other | | 2014 | | MED CTR MEDICAL | Chad Soler MD [address] | | | | | ONCOLOGY CLINIC [address] | [facility] | | | | | [address] | [address] [place], [place] | | | | | [place] [address] | [address] | | | | | [phone] | | | +--------+ + + + [...] | | | | | [place] [address] | | | | | | [phone] | | | | | | | | +--------+---------+ + + + documented as of this encounter Visit Diagnoses Not on filedocumented in this encounter"
--- OUTSIDE RECORDS SUMMARY | ~2019-10-19 | XMS | Encounter Summary ---
Demographics + + + | Address | [address] | | | [place] [address] | + + + | Home Phone [...] Providers + +------+ + | Care Head Of Drama Name | Role | Phone | + [...] | | | Alexis [address] | [facility] | | | | | [address] | [place], [place] | | | | | Alexis, 7th floor | [address] | | | | | [place], [place] | [phone] | | | | | [address] | | | | | | [phone] | | | +--------+ + + + [...]
--- OUTSIDE RECORDS SUMMARY | ~2019-10-19 | XMS | Encounter Summary ---
Demographics + + + | Address | [address] | | | [place] [address] | + + + | Home Phone [...] Providers + +------+ + | Care Supervisor Forming And Tempering Name | Role | Phone | + [...] | | | Reconstructive | Velma [place], | Septal Defect | | | | Services at [facility] | [place] [address] | | | | | [address] | [phone] | | | | | [facility] | | | | | | and Healing, | | | | | | Building [address], 5th | | | | | | Floor [place], [place] | | | | | | [address] | | | | | | [phone] | | | +--------+---------+ + + + [...] of Otolaryngology/Head and Neck Surgery [facility] [email or web address] documented in this encounte r Miscellaneous Notes [...]
--- OUTSIDE RECORDS SUMMARY | ~2019-10-19 | XMS | Encounter Summary ---
Demographics + + + | Address | [address] | | | [place] [address] | + + + | Home Phone [...] + | Poncho Oquendo | ECON | [address] | | | | | [place] | | | | | [address] | | + + + + + | Marta Upton | ECON | [place] | | | | | [address] | | + + + + + Care Team Providers + +------+ + | Care Vp Organizational Development Name | Role | Phone | + [...] | | | | 02/13/ | | [place], [place] | | | | 2012 | | [address] | | | | | | [phone] | | | +--------+ + + + [...] 10/29/ | Office | Urology | Pedro Grene, | | | 2019 | Visit | | DO [address] | | | | | | [place] [address] | | | | | | [phone] | | | | | | | [...] + | [facility] | [address] | [place] | [phone] | | [facility] | | [address] | | | - LABORATORY | | | | + + + + + | [facility] | [address] | [place], [place] | | | [facility] | | [address] [place] [address] | | | - LABORATORY | | [...] | | | | [address] [place], [place] | | | | | | [address] CLIA: | | | | | | [id number] | | | | + + + + + + + + | Specimen | + + | | + + + + + + + | Performing | Address | City/State/Zipcode | Phone Number | | Organization | | | | + + + + + | [facility] | [address] | [place] | [phone] | | [facility] | | [address] | | | - LABORATORY | | | | + + + + + | [facility] | [address] | [place] | | | [facility] | | [address] [place] [address] | | | - LABORATORY | | [...] | + + + + + | [facility] | [address] | [place] | [phone] | | [facility] | | [address] | | | - LABORATORY | | | | + + + + + | [facility] | [address] | [place] | | | [facility] | | [address], [facility] | | | [...] + + + + + | [facility] | [address] | [place] | [phone] | | [facility] | | [address] | | | - LABORATORY | | | | + + + + + | [facility] | [address] | [place], [place] | | | [facility] | | [address] | | | - LABORATORY | | | | + + + + + documented in this encounter Visit Diagnoses Not on filedocumented in this encounter"
--- OUTSIDE RECORDS SUMMARY | ~2019-10-19 | XMS | Encounter Summary ---
Demographics + + + | Address | [address] | | | [place] [address] | + + + | Home Phone [...] + | Poncho Oquendo | ECON | [address] | | | | | [place] | | | | | [address] | | + + + + + | Marta Upton | ECON | [place] | | | | | [address] | | + + + + + Care Team Providers + +------+ + | Care Factory Maintenance Technician Name | Role | Phone | + +------+ + | No, Physician | PCP | Unavailable | + +------+ + Encounter Details +--------+ + + + + | Date | Type | Department | Care Team | Description | +--------+ + + + + | 04/26/ | Hospital | [facility] | Perdo Green, | | | 2019 | Encounter | REGIONAL SURGERY | DO [address] | | | | | CENTER INTRA OP | [place] [address] | | | | | [address] | [phone] | | | | | [place], [place] | | | | | | [address] | | | | | | [phone] | | | +--------+ + + + [...] [address] | | | | | | [place] [address] | | | | | | [phone] | | | | | | | [...]
--- OUTSIDE RECORDS SUMMARY | ~2019-10-19 | XMS | Encounter Summary ---
Demographics + + + | Address | [address] | | | [place] [address] | + + + | Home Phone [...] + | Poncho Oquendo | ECON | [address] | | | | | [place] | | | | | [address] | | + + + + + | Marta Corbin | ECON | [place] | | | | | [address] | | + + + + + Care Team Providers + +------+ + | Care Reverse Unit Operator Name | Role | Phone [...] W | | | | | | [place] | | | | | | [place] [address] | | | | | | [phone] | | | +--------+ + + + [...] | | | | | [place] [address] | | | | | | [phone] | | | | | | | [...] Performed At | + + + | [facility] | [facility] | | Department [address] | [facility] | | [ rep [address]] [ rep [facility] | | st zip] Signed | - IMAGING | | | | | Patient Name: AURA CORBIN Physician: | | | [id number] : 1960 Age: 52 Sex: F Unit #: [id number] | | | Exam Date: 01/15/13 [place] [facility] [place] | | | Report #: [id number] Page: | | | %(RAD)RES..mtdd.print.filter("pg") of %(RAD) | | | RES..mtdd.print.filter("tpg") | | | | | | Accession Number: [id number] | | | CHEST, ABDOMEN, PELVIS CT [...] Transcribed | | | Date/Time: 01/15/2013 13:23 Web Services Manager: | | | <<Signature on File>> | | | Mathieu | | | Emir Brasher MD01/15/13 2112 <Electronically signed by Mathieu Field | | | Anshu LI> Mathieu Brasher MD 01/15/13 1140 | | | Web Services Manager: [employer] Upetwcoiwezpn34/02/13 1323 | | | Epifanio Najera MD | | + + + + + + + + | Performing | Address | City/State/Zipcode | Phone Number | | Organization | | | | + + + + + | [address] | [address] | [place] | [phone] | | [facility] | | [address] | | | - IMAGING | | | | + + + + + documented in this encounter Visit Diagnoses Not on filedocumented in this encounter
--- OUTSIDE RECORDS SUMMARY | ~2019-10-19 | XMS | Encounter Summary ---
Demographics + + + | Address | [address] | | | [place] [address] | + + + | Home Phone [...] + | Poncho Oquendo | ECON | [address] | | | | | [place] | | | | | [address] | | + + + + + | Marta Upton | ECON | [place] | | | | | [address] | | + + + + + Care Team Providers + +------+ + | Care Loan Secretary Name | Role | Phone | [...] 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, | [address] [place]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 | MD [address] | [place], | | | | | (HCC) | [address] | [place] [address] | | | | | Procedures | [address] | Phone: | | | | | [place] | [place], | [phone] | | | | | DIPHENHYDRAM | [place] [address] | Fax: | | | | | INE HCL | Phone: | [phone] | | | | | INJECTIO, 50 | [phone] | | | | | | MG SD | Fax: | | | | | | ONDANSETRON | [phone] | | | | | | HCL | | | | | | | INJECTION, 1 | | | | | | | MG SD | | | | | | | DEXAMETHASON | | | | | | | E SODIUM | | | | | | | PHOS, 1 MG | | | | | | | SD | | | | | | | FOSAPREPITAN | | | | | | | T INJECTION, | | | | | | | 1 MG SD | | | | | | | LORAZEPAM | | | | | | | INJECTION, 2 | | | | | | | MG SD | | | | | | | GEMCITABINE | | | | | | | HCL | | | | | | | INJECTION, | | | | | | | 200 MG SD | | | | | | | CISPLATIN 10 | | | | | | | MG | | | | | | | INJECTION | | | | | | | SD | | | | | | | METHYLPREDNI | | | | | | | SOLONE | | | | | | | INJECTION, | | | | | | | 125 MG SD | | | | | | | ADRENALIN | | | | | | | EPINEPHRINE | | | | | | | INJECT, .1 | | | | | | | MG SD | | | | | | | FILGASTIM | | | | | | | (ZARXIO) 300 | | | | | | | MCG/0.5ML | | | | | | | SOSY, PER 1 | | | | | | | MCG SD | | | | | | | INJECTION, | | | | | | | FAMOTIDINE, | | | | | | | 20 MG SD | | | | | | | NORMAL | | | | | | | SALINE | | | | | | | SOLUTION | | | | | | | INFUS, 500 | | | | | | | ML SD | | | | | | | NORMAL | | | | | | | SALINE | | | | | | | SOLUTION | | | | | | | INFUS, 250 | | | | | | | ML SD | | | | | | | STERILE | | | | | | | WATER/SALINE | | | | | | | , 10 ML SD | | | | | | | CHEMOTHER, | | | | | | | IV PUSH,EA | | | | | | | ADD DRUG SD | | | | | | | CHEMOTHER, | | | | | | | IV INFUSION, | | | | | | | 1 HR SD | | | | | | | CHEMOTHER, | | | | | | | IV INFUSION, | | | | | | | EA HR SD | | | | | | | CHEMOTHER,NO | | | | | | | N-HORMONE | | | | | | | ANTI-NEOPL, | | | | | | | SUB-Q/IM SD | | | | | | | [...] + + | 05/27/ | Hospital | [facility] | Vladimir Robles, | Canceled (Clinic | | 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 | MED CTR CHEMO | MD [address] | and/or Provider | | | | INFUSION [address] [place], | Cancellation) | | | | [place], | [place] [address] | | | | | [place] [address] | [phone] | | | | | [phone] | | | +--------+ + + + [...] | | | | | | [place] [address] | | | | | | [phone] | | | | | | | | +--------+---------+ + + + documented as of this encounter Visit Diagnoses Not on filedocumented in this encounter"
--- OUTSIDE RECORDS SUMMARY | ~2019-10-19 | XMS | Encounter Summary ---
Demographics + + + | Address | [address] | | | [place] [address] | + + + | Home Phone [...] + | Poncho Oquendo | ECON | [address] | | | | | [place] | | | | | [address] | | + + + + + | Marta Upton | ECON | [place] | | | | | [address] | | + + + + + Care Team Providers + +------+ + | Care Protective Signal Operations Supervisor Name | Role | Phone | + +------+ + PCP | Unavailable | + +------+ + Encounter Details +--------+ + + + + | Date | Type | Department | Care Team | Description | +--------+ + + + + | 03/12/ | Hospital | [facility] | Dilip Hakan | | | 2011 | Encounter | MED CTR XRAY [address] | [address], [address] | | | | | [place] | ST [place], [place] | | | | | [place] [address] | [address] | | | | | [phone] | | | +--------+ + + + [...] [address] | | | | | | [place] [address] | | | | | | [phone] | | | | | | | [...] Performed At | + + + | [facility] Diagnostic Imaging Department | [facility] | | [address] [facility] | [facility] | | RIGHT HIP, 03/12/2011 | [...] Transcribed Date/Time: 03/12/2011 | | | 11:29 Disability Specialist: <Electronically Signed by Alejandro Keller | | | MD Mo> 03/12/11 1459 | | + + + + + | Procedure Note | + + | Edmundo, Rad Conversion - 03/23/2013 4:[address] [facility] | | Diagnostic Imaging Department [address] [place] [address] | | RIGHT HIP, 03/12/2011 CLINICAL HISTORY: [...] by Alejandro Hassan MD> 03/12/11 | | 6222 | |FINDINGS: AP view of the pelvis [...] 11:24 | |Transcribed Date/Time: 03/12/2011 11:29 | |Disability Specialist: | |<Electronically Signed by Alejandro Hassan MD> [...] Performed At | + + + | [facility] Diagnostic Imaging Department | [facility] | | [address] [facility] | [facility] | | LATERAL VIEWS, LUMBAR [...] | | | Transcribed Date/Time: 03/12/2011 11:29 Disability Specialist: | | | <Electronically Signed by Alejandro Hassan MD> 03/12/11 1459 | | + + + + + | Procedure Note | + + | Edmundo, Rad Conversion - 03/23/2013 4:[address] [facility] | | Diagnostic Imaging Department [address] [place] [address] | | LATERAL VIEWS, LUMBAR SPINE CLINICAL [...] 11:23 | |Transcribed Date/Time: 03/12/2011 11:29 | |Disability Specialist: | |<Electronically Signed by Alejandro Hassan MD> 03/12/11 1459 | + + + +---------+ + + | Performing | Address | City/State/Zipcode | Phone Number | | Organization | | | | + +---------+ + + | [place] | | | | | [facility] | | | | + +---------+ + + documented in this encounter Visit Diagnoses Not on filedocumented in this encounter"
--- OUTSIDE RECORDS SUMMARY | ~2019-10-19 | XMS | Encounter Summary ---
Demographics + + + | Address | [address] | | | [place] [address] | + + + | Home Phone [...] Team Providers + +------+ + | Care Veterinary Toxicologist Name | Role | Phone | + [...] | Center at [facility] [address] | [address] [facility] | | | | | [facility] | [facility] | | | | | for Health and | [place], [place] | | | | | [facility] [place] [address] | [address] | | | | | [place], [place] | [phone] | | | | | [address] | | | | | | [phone] | | | +--------+ + + + [...]
--- OUTSIDE RECORDS SUMMARY | ~2019-10-19 | XMS | Encounter Summary ---
Demographics + + + | Address | [address] | | | [place] [address] | + + + | Home Phone [...] + | Poncho Oquendo | ECON | [address] | | | | | [place] | | | | | [address] | | + + + + + | Marta Upton | ECON | [place] | | | | | [address] | | + + + + + Care Team Providers + +------+ + | Care Security Systems Manager Name | Role | Phone | [...] in | [address] | | | | | breast | [address] | [place], | | | | | Procedures | STREET | [place] | | | | | LUPE BREAST | [place], | [address] | | | | | BIOPSY RIGHT | [place] | Phone: | | | | | | [address] | [phone] | | | | | | Phone: | Fax: | | | | | | [phone] | [phone] | | | | | | Fax: | | | | | | | [phone] | | +--------+--------+ + + + + Encounter Details +--------+ + + + + | Date | Type | Department | Care Team | Description | +--------+ + + + + | 03/05/ | Hospital | [facility] | [place], | Mass of breast, | | 2017 | Encounter | MED CTR MAMMOGRAPHY | Epifanio Soler MD [address] | right | | | | [address] | [address] [place] [address] | | | | | [place], [place] | [address] [place], [place] | | | | | [address] | [address] | | | | | [phone] | | | | | | | [...] TAI | | | | | | [place] [address] | | | | | | [phone] | | | | | | | [...] At | + + + | EXAM: [facility] RIGHT dated 03/05/2016 12:50 PM [...]
--- OUTSIDE RECORDS SUMMARY | ~2019-10-19 | XMS | Encounter Summary ---
Demographics + + + | Address | [address] | | | [place] [address] | + + + | Home Phone [...] Team Providers + +------+ + | Care Deer Farmer Name | Role | Phone | [...] [facility] [address] | [address] [facility] | Review ( abd ) | | | | [address] [facility] | [facility] | | | | | [facility] and | [place], [place] | | | | | [facility] 2 | [address] | | | | | [place], [place] | [phone] | | | | | [address] | | | | | | [phone] | | | +--------+ + + + [...]
--- OUTSIDE RECORDS SUMMARY | ~2019-10-19 | XMS | Encounter Summary ---
Demographics + + + | Address | [address] | | | [place] [address] | + + + | Home Phone [...] + +------+ + | Care Head Of Marketing Analytics Name | Role | Phone | + [...] | | | | | | | [facility] | | | | | | | for Health | | | | | | | and Healing, | | | | | | | Building [address] | | | | | | | [place], [place] | | | | | | | [address] | | | | | | | Phone: | | | | | | | [phone] | | | | | | | Fax: | | | | | | | [phone] | +--------+--------+ + + + + Encounter [...] (Primary Dx) | | | | [facility] | [address] | | | | | for Health and | [place], [place] | | | | | [facility] 2 | [address] | | | | | [place], [place] | [phone] | | | | | [address] | | | | | | [phone] | | | +--------+---------+ + + + [...] the resident s note. Tai Stanton M.D. [facility] [employer] ([facility]) Professor and Vice-Electron Beam Welding Machine Operator of Surgery The [facility]ar Nava Chair for Pancreatic Disease Research Pancreatic/ HepatoBiliary and Foregut Working Groups Office email: [email or web address] Rukhsana Patel MD - 05/31/2012 2:07 PM PDT [facility] Department of Surgery Blue Surgery [...] y.o. female patient who presents to [facility] today for follow up for her [...] Pathology: Original path: Materials Received: Referring Institution: [facility] [employer], [place] [address] Outside Accession Number: [id number] Sample Collection Date: 03/29/2012 Sublabeled H&E IHC [...] and agrees with the above plan. Rukhsana eTsfaye MD Surgery, R1 Pager: [phone] documented in this e ncounter Plan of Treatment Not on filedocumented as of this encounter Visit Diagnoses + + | Diagnosis | + + | Encounter for wound care - Primary Encounter for other specified aftercare | + + documented in this encounter
--- OUTSIDE RECORDS SUMMARY | ~2019-10-19 | XMS | Encounter Summary ---
Demographics + + + | Address | [address] | | | [place] [address] | + + + | Home Phone [...] + | Poncho Oquendo | ECON | [address] | | | | | [place] | | | | | [address] | | + + + + + | Marta Upton | ECON | [place] | | | | | [address] | | + + + + + Care Team Providers + +------+ + | Care Cement Mason Maintenance Name | Role | Phone | + [...] + | 08/04/ | Orders Only | [facility] | [place], | Community acquired | | 2018 | | MED CTR MEDICAL | Epifanio Soler MD [address] | pneumonia of right | | | | ON[facility]Y CLINIC 401 | [facility] | lower lobe of lung | | | | [address] [place] | [address] [place], [place] | (Primary Dx) | | | | [place] [address] | [address] | | | | | [phone] | | | +--------+ + + + [...] [address] | | | | | | [place] [address] | | | | | | [phone] | | | | | | | | +--------+---------+ + + + documented as of this encounter Visit Diagnoses + + | Diagnosis | + + | Community acquired pneumonia of right lower lobe of lung - Primary | + + documented in this encounter"
--- OUTSIDE RECORDS SUMMARY | ~2019-10-19 | XMS | Encounter Summary ---
Demographics + + + | Address | [address] | | | [place] [address] | + + + | Home Phone [...] Team Providers + +------+ + | Care Dowel Setting Machine Operator Name | Role | Phone [...] | | | Stay [address] | [place], [place] | testing; Pelvic | | | | [address] | [address] | mass; Other | | | | Mailcode: [id number] | [phone] | specified | | | | [facility] | | pre-operative | | | | [address] [place], [place] | | examination | | | | [address] | | | | | | [phone] | | | +--------+---------+ + + + [...] or walk. Surgery check-in location: Admitting - [facility], ninth floor [facility] Surgery Check in Time: The Preoperative [...] it is after office hours, call the [facility] muck operator at [phone] and ask them to page him or [...] Date RATE 65 04/27/2012 ATRIALRATE 65 04/27/2012 SD 142 04/27/2012 QRS 86 04/27/2012 QT 398 [...] to this patient's care. RACHAEL NGUYEN MD RESIDUE FURNACE OPERATORCOMMUNICATIONS FIELD TECHNICIAN DEPARTMENT OF MEDICINE DIVISION OF HOSPITAL MEDICINE PREOPERATIVE MEDICINE ENVIRONMENTAL ATTORNEY COLORED LEATHER SETTER [address] [place] [address] [place] [address] documented in thi s encounter Plan of Treatment Not on filedocumented as of this encounter Procedures + +--------+ + + + | Procedure Name | Priori | Date/Time | Associated Diagnosis | Comments | | | ty | | | | + +--------+ + + + | SD COLLECTION VENOUS | Routin | 05/28/2014 | [...] | + + + + + | [facility] | [address] | [place] [address] | | | SERVICES, | [address] [...] [facility] | [address] | [place] [address] | | | SERVICES, | [address] [...] [facility] | [address] | [place] [address] | | | SERVICES, CORE | [address] [...] [facility] | [address] | [place] [address] | | | SERVICES, CORE | PARK [...] | 30.3 | 26.0 - 36.0 | [facility] | | | | | seconds | [...] | + + + + + | [facility] | [address] | [place] [address] | | | SERVICES, CORE | PARK [...] | | | LABORATORY | | | BELARUSIAN | | | SERVICES, | | | [...] | + + + + + | [facility] | [address] | [place] [address] | | | SAM ALONSO | NEAL [...] BRUNNER | [address] | [place], [place] | | | [facility] | [facility] | [address] | | | TESTS | | | [...]
--- OUTSIDE RECORDS SUMMARY | ~2019-10-19 | XMS | Encounter Summary ---
Demographics + + + | Address | [address] | | | [place] [address] | + + + | Home Phone [...] Providers + +------+ + | Care Microsoft Exchange Administrator Name | Role | Phone | [...] Mailcode: | | | | | | [place], [place] | [facility] | | | | | | [address] | for Health | | | | | | Phone: | and Healing, | | | | | | [phone] | Building 1, | | | | | | Fax: | 7th Floor | | | | | | [phone] | [place], [place] | | | | | | | [address] | | | | | | | Phone: | | | | | | | [phone] | | | | | | | Fax: | | | | | | | [phone] | +--------+--------+ + + + + Encounter Details +--------+---------+ + + + | Date | Type | Department | Care Team | Description | +--------+---------+ + + + | 11/01/ | Office | Hematology/Medical | Elva Grey, | 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 Onc Hx: [id number] gallbladder [...] negative for malignancy - Adjuvant chemotherapy recommended: Basin/Cap for 4 cycles then restaging - 09/13/12-10/23/12 [...] ultrasound, this was normal. No admission to [facility], had some neupogen shots during her [...]
--- OUTSIDE RECORDS SUMMARY | ~2019-10-19 | XMS | Encounter Summary ---
Demographics + + + | Address | [address] | | | [place] [address] | + + + | Home Phone [...] Team Providers + +------+ + | Care Horticulture Teacher Name | Role | Phone | [...] | | | | | Procedures | [place], [place] | [place], [place] | | | | | [place] | [address] | [address] | | | | | ENT / FACIAL | Phone: | Phone: | | | | | PLASTIC | [phone] | [phone] | | | | | SURGERY | Fax: | Fax: | | | | | | [phone] | [phone] | +--------+--------+ + + + + Encounter [...] | | | Reconstructive | Velma Whitfield [place], | | | | | Services at [facility] | [place] [address] | | | | | [address] | [phone] | | | | | [facility] | | | | | | and Healing, | | | | | | Building 1, 5th | | | | | | Floor [place], [place] | | | | | | [address] | | | | | | [phone] | | | +--------+---------+ + + + [...] Surgery Dept. of Otolaryngology/Head and Neck Surgery [facility] [employer] tel fax email [email or web address] documented in this encounte r Plan of Treatment Not on filedocumented as of this encounter Visit Diagnoses + + | Diagnosis | + + | Postop check - Primary Follow-up examination, following unspecified surgery | + + documented in this encounter"
--- OUTSIDE RECORDS SUMMARY | ~2019-10-19 | XMS | Encounter Summary ---
Demographics + + + | Address | [address] | | | [place] [address] | + + + | Home Phone [...] + | Poncho Oquendo | ECON | [address] | | | | | [place] | | | | | [address] | | + + + + + | Marta Upton | ECON | [place] | | | | | [address] | | + + + + + Care Team Providers + +------+ + | Care Formal Waiter/Waitress Name | Role | Phone | + [...] | | | | 11/13/ | | [place], [place] | | | | 2012 | | [address] | | | | | | [phone] | | | +--------+ + + + [...] | | | | | [place] [address] | | | | | | [phone] | | | | | | | [...] + | [facility] | [address] | [place], [place] | [phone] | | [facility] | | [address] | | | - LABORATORY | | | | + + + + + | [facility] | [address] | [place], [place] | | | [facility] | | [address] | | | - [...] | | (formerly Mahad) [employer] | | [facility] | | | | Centaur immunoassay [...] | | | [address], [place] | | | | | | [address] CLIA: | | | | | | [id number] | | | | + + + + + + + + | Specimen | + + | | + + + + + + + | Performing | Address | City/State/Zipcode | Phone Number | | Organization | | | | + + + + + | [facility] | [address] | [place], [place] | [phone] | | [facility] | | [address] | | | - LABORATORY | | | | + + + + + | [facility] | [address] | [place], [place] | | | [facility] | | [id number] [place] [address] | | | - LABORATORY | | [...] [address] | [place] | [phone] | | [facility] | | [address] | | | - LABORATORY | | | | + + + + + | [address] | [address] | [place], [place] | | | [facility] | | [address] | | | - [...] [address] | [place] | [phone] | | [facility] | | [address] | | | - LABORATORY | | | | + + + + + | [facility] | [address] | [place] | | | [facility] | | [address] [place] [address] | | | - LABORATORY | | | | + + + + + documented in this encounter Visit Diagnoses Not on filedocumented in this encounter"
--- OUTSIDE RECORDS SUMMARY | ~2019-10-19 | XMS | Encounter Summary ---
Demographics + + + | Address | [address] | | | [place] [address] | + + + | Home Phone [...] + | Poncho Oquendo | ECON | [address] | | | | | [place] | | | | | [address] | | + + + + + | Marta Upton | ECON | [place] | | | | | [address] | | + + + + + Care Team Providers + +------+ + | Care Cloth Sponger Name | Role | Phone | + [...] + + | 11/29/ | Surgery | [facility] | Pedro Green, | CYSTOSCOPY URETERAL | | 2018 | [facility] | DO [address] [facility] | STENT stent removal | | | | OPERATING ROOM [address] | [place] [address] | and replacement | | | | [address] | [phone] | | | | | [place], [place] | | | | | | [address] | | | | | | [phone] | | | +--------+---------+ + + + [...] out of the urethra Date Last Reviewed: 02/15/201619995477-3589 [employer]. [address] [place] [address], [place] [address]. All righ ts reserved. This information is [...] on your doctor's advice. Talk to your organ tuner electronic regarding the use of this medicine in children. Special care may be needed. What side effects may I notice from receiving this medicine? Side effects that you should report to your doctor or health auto care center manager as soon as p ossible: allergic reactions like skin rash, itching or hives, swelling of the face, lips, or tongue blue or purple color of the skin difficulty breathing fever less urine unusual bleeding, bruising unusual tired, weak vomiting yellowing of the eyes or skin Side effects that usually do not require medical attention (report to your doctor or health auto care center manager if they continue or are bothersome): [...] if you have any of these conditions: aobkczr-0-ibcoqwhzt dehydrogenase (G6PD) deficiency kidney disease an unusual or allergic reaction to phenazopyridine, other medicines, foods, dyes, or preser vatives or trying to get breast-feeding What should I watch for while using this medicine? Tell your doctor or health auto care center manager if your symptoms do not improve [...] pharmacist, or health care provider. Copyright 2019 [employer] Ciprofloxacin tablets Brand Name: Cipro What is [...] information carefully each time. Talk to your organ tuner electronic regarding the use of this medicine in children. Special care may be needed. What side effects may I notice from receiving this medicine? Side effects that you should report to your doctor or health auto care center manager as soon as p ossible: allergic [...] attention (report to your doctor or health auto care center manager if they continue or are bothersome): [...] watery. Check with your doctor or health auto care center manager if you get an attack of severe diarrhea, nausea and vomiting, or if you sweat a lot. The loss of too much body fluid can make it haile gerous for you to take this medicine. This medicine may affect blood sugar levels. If you have diabetes, check with your doctor o r health auto care center manager before you change your diet or [...] pharmacist, or health care provider. Copyright 2019 [employer] documented in this encounter Medications at Time [...] Patient discharged home via wheelchair with mother. iNkky Guallpa RN 11/29/18 15:58 documented in this [...] signed by: Pedro Green DO, 11/29/2018 12:52 [facility] Pedro Hanley DO - 11/21/2018 10:30 AM PDT [facility] Urology Primary Care Provider: No Physician [...] well. Her last excha nge was at [facility] during a septic episode. Her [...] - STENT; Surgeon: Pedro Green DO; Location: [facility] MAIN OR; Service: Urology; Laterality: [...] teral stent placement Surgeon: Pedro Green DO Professional Nursing Assistant(s): SWETA Anesthesia: General LMA Estimated Blood Loss: [...] dorsal lithotomy position. Following a preoperative pause, 21.5-Costa Rican cystoscope sheath with 30-degree lens was insert [...] catheter was removed, allowing for placement of 7-Costa Rican x 24 cm ureteral stent without strings [...] 2019 | Visit | | DO [address] [facility] | | | | | | [place] [address] | | | | | | [phone] | | | | | | | [...] | | | | | | longer, zybuhn-cpi-bkvow use of | | | | | [...]
--- OUTSIDE RECORDS SUMMARY | ~2019-10-19 | XMS | Encounter Summary ---
Demographics + + + | Address | [address] | | | [place] [address] | + + + | Home Phone [...] Providers + +------+ + | Care Putty And Caulking Supervisor Name | Role | Phone | [...] Telephone follow-up | | 2012 | | [place] [address] | [address] [facility] | (Pt requested | | | | [facility] | [facility] [address] | reports be sent to | | | | [facility] and | [place], [place] | outside ) | | | | [facility] | [address] | | | | | [place], [place] | [phone] | | | | | [address] | | | | | | [phone] | | | +--------+ + + + [...] to Tomasa Wagner MD on 05/10/12 @ 6990, left a VM. elephone Encounter - Epifanio Trujillo - 04/15 12:27 PM PDTPatient states that she would like to have her operative and pathology re ports sent to Tomasa Wagner at [place]. So she can have referral [facility] [phone]. Patient asked that she be called after r ecords are sent documented in this encounte r Plan of Treatment Not on filedocumented as of this encounter Visit Diagnoses Not on filedocumented in this encounter"
--- OUTSIDE RECORDS SUMMARY | ~2019-10-19 | XMS | Encounter Summary ---
Demographics + + + | Address | [address] | | | [place] [address] | + + + | Home Phone [...] Providers + +------+ + | Care Wood Heel Fitter Machine Name | Role | Phone | [...] 2012 | | HIEN Carreon | [address] [facility] | LAPAROSCOPY WITH | | | | Rd [facility] | [facility] | BIOPSY, OPEN SEGMENT | | | | Hospital Admitting | [place], [place] | 4B/5 LIVER | | | | Desk Located on the | [address] | RESECTION, PORTAL | | | | 9th floor | [phone] | LYMPHADENECTOMY | | | | [place], [place] | | Specimens x 6 (FS) | | | | [address] | | | +--------+---------+ + + + [...] acute cholecystitis. Her pathology was reviewed at [facility]. She underwent a CT scan, which [...] working on arranging an appointm ent with [facility] Oncology for treatment planning. FINAL PATHOLOGY: [...] 'after hours' URGENT problems please call the [facility] test desk operator at and ask for the "Blue [...] None Your Follow-Up Plan Follow up with [facility] HEMATOLOGY ONCOLOGY [facility]. (Please expect a call from the Oncology clini c in the next several days to schedule an appointment with either Dr. Grey or Dr. Ledesma ) Contact information: [address] [facility] [address] Future Appointments Date & Time Provider Department Dept Phone Center 05/17/2012 11:30 AM CORNELIA STANTON MD [facility] [phone] [facility] Discharging Physician: MARCO ANTONIO BEATTY NP Attending Physician: MD Marco Antonio Mauricio RN, MSN, ASPHALT WORKER [facility] Blue Surgery Pager# [phone] 9:37 AM 05/04/2012 documented in this enc [...] 0659 05/04/12 07 - 05/05/12 0659(Discharged) Shift 3994-5258 8692-0713 0156-0130 Daily Total 6393-9856 4132-0352 1132-7472 Daily Total I N T A K E P.O. 925 944 603 3831 500 500 I.V. 5 10 15 Shift Total 930 974 299 5331 500 500 O U T P U T Urine 1050 5944 366 4966 400 400 Urine 1050 7163 496 8277 400 400 Other Stool 1 1 Shift Total 1050 3885 881 2697 400 400 NET -120 -1090 205 -1005 [...] Attending Physician: Dr. Romy Beatty RN, MSN, ASPHALT WORKER [facility] Blue Surgery Pager# [phone] 12:54 PM 05/04/2012 Current Inpatient Medications Medication [...] Parish Arias MD - 5:51 AM PDT [facility] Department of Surgery Blue Surgery Progress [...] 04/29/12699 - 04/30/1265804/30/12699 - 05/01/12 0659 Shift 0565-2310 5212-8382 2994-8173 Daily Total 3955-0537 4923-1246 2472-6210 Daily Total I N T A K E P.O. 620 085 908 7960 P.O. 620 120 375 0326 I.V. 1977.33 977.5 982.5 3937.33 0 0 [...] O U T P U T Urine 958 046 4348 2004 I/O Urinary Drain Output (Urinary Cath Placement Lópze) 151 089 5964 2004 Shift Total 996 359 1217 2004 NET 2415.83 837.5 307.5 3560.83 0 [...] tomorrow Parish Blackburn MD Surgery, R1 Pager: [phone] Silvia Mckeon NP - 05/01/2012 2:19 PM PDTPain fairly well controlled on oral medications. No longer nauseated, tolerating 10 mg oxycodone Epidural catheter discontinued, tip intact. APS will sign off, please call us back if there are any pain related concerns for us to add ress. Silvia Del Toro NP Adult Pain Service Pager [phone] Team Pager [phone] Silvia Mckeon NP - 05/01/2012 8:56 AM [...] of old medical records (source: [facility]), as summarized in the body of the note. SILVIA DEL TORO NP BILLING INFORMATION [facility] DEPARTMENT: [id number] Place of Service:- Inpatient Date of Service: 05/01/2012 CSN: [id number] Suggested Modifier: None Suggested CPT: 17465 - Daily mgmt epidural/subarachnoid drug administration Prolonged service: n/a Parish Arias MD - 05/01/2012 5:44 AM PDT [facility] Department of Surgery Blue Surgery Progress [...] - 04/30/1259 04/30/12699 - 05/01/12 0659 Shift 4265-2460 6678-7189 7741-4157 Daily Total 0590-8726 4443-8371 6371-0955 Daily Total I N T A K E P.O. 620 345 118 9388 P.O. 620 655 327 8123 I.V. 1977.33 977.5 982.5 3937.33 0 0 [...] O U T P U T Urine 239 920 8403 2004 I/O Urinary Drain Output (Urinary Cath Placement López) 663 156 1911 2004 Shift Total 956 775 7644 2005 NET 2415.83 837.5 307.5 3560.83 0 [...] course Parish Blackburn MD Surgery, R1 Pager: [phone] Parish Arias MD - 11:59 AM PDT [facility] Department of Surgery Blue Surgery Progress [...] 04/30/12 0659 04/30/12699 - 05/01/12 0659 Shift 2527-1791 6836-1058 2121-2664 Daily Total 5165-5634 5724-2384 1320-9308 Daily Total I N T A K E P.O. 620 421 223 4241 P.O. 620 595 242 5719 I.V. 1977.33 977.5 982.5 3937.33 0 0 [...] O U T P U T Urine 371 550 9271 2004 I/O Urinary Drain Output (Urinary Cath Placement López) 925 457 1174 2004 Shift Total 468 696 0587 2005 NET 2415.83 837.5 307.5 3560.83 0 [...] course Parish Blackburn MD Surgery, R1 Pager: [phone] Sasha Antony MD - 04/30/2012 7:03 AM [...] primary service. JOSE HOOKS MD BILLING INFORMATION [facility] DEPARTMENT: [id number] Place of Service:- Inpatient Date of Service: 04/30/2012 CSN: [id number] Suggested Modifier: GC - Resident Involved Suggested CPT: 74691 - Daily mgmt epidural/subarachnoid drug administration Prolonged [...] the floor later today. SASHA RAIN MD [facility] 8CSI [address] 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 Corbin was evaluated with Sasha Rian MD I saw and evaluated patient Ms. [...] MD Department of Obstetrics & Gynecology, PGY1 [facility] Pager [phone] documented in thi s encounter H&P Notes [...] Date: 04/28/2012 Attending Surgeon: Cornelia Stanton M.D. Turbine Measurements Engineer(s): Ruba Lam MD Preoperative Diagnosis(es): Gallbladder cancer. [...] acute cholecystitis. Her pathology was reviewed at [facility]. She underwent a CT scan, which [...] in case we needed to perform a Tranquillity maneuver. We then finished the dissection identifying [...] RSI wa s completed. Cornelia Stanton M.D. [facility] ([facility]) Professor and Vice-Radiophone Operator of Surgery The [facility] for Pancreatic Disease Research Pancreatic/ HepatoBiliary and Foregut Working Groups Mail Code L223A [address] [place], [place]. [address] email: [email or web address] Cornelia Stanton M.D. Professor and Vice-Radiophone Operator of Surgery [facility] for Pancreatic Disease Research [facility] ([facility]) Division of Gastrointestinal and General Surgery / HS [id number] / [id number] / [id number] / Cornelia Lott MD - 04/28/2012 2:25 [...] y (non-malig) Complications: none apparent Drains: none (lpóez) Disposition: extubated to pacu Findings: three small lesions (2 peritoneal and 1 liver surface segment 7) biopsied on diag nostic lsp and benign; no infiltrating tumor on ultrasound. liver resection with gallbadder fossa with negative margins. RUBA BERTRAND MD Manager Small Business, R5 I was present for the critical portions of this procedure and final inspection for RSI wa s completed. Cornelia Stanton M.D. [facility] ([facility]) Professor and Vice-Radiophone Operator of Surgery The [facility] Chair for Pancreatic Disease Research Pancreatic/ HepatoBiliary and Foregut Working Groups Mail Code L223A [facility] [place], [place]. [address] email: [email or web address] documented in this en counter Consult Notes [...] History Narrative Pt has SO. Lives in [facility]. 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. Likes to camp, entertain. FAMILY HISTORY: [...] the a ttending physician. CRYSTAL PEREZ PA-C [address] [place] [address] documented in thi s encounter Miscellaneous Notes [...] and medicatio ns. Pt discharged home, to [facility], with S/O. Discharge Nurse: LALA HERNANDEZ andoff [...] and plan for follow up. Collaborate w [facility] surgical team on answering all questions. [...] and plan for follow up. Collaborate w [facility] surgical team on answering all questions. [...] and plan for follow up. Collaborate w [facility] surgical team on answering all questions. Provide reassurance to patient/family. AMEvaluation Anotni Lozano RN - 05/03/2012 6:01 AM PDTProblem: [...] see well in the dark. Please have community planner see patient first thing in AM [...] well in the dark . Please have community planner see patient first thing in AM [...] patient is comfortable. Lala Mahajan DPT Pager [phone] lan of [facility] Rukhsana Umaña - 05/02/2012 10:02 AM [...] Living Environment: Pt lives with spouse in [place] in 1 level house, 0 steps to [...] personal items within reach. 4. Assess skin E0husak and PRN. Educate on prevention of skin [...] protein (1.0-1.5gm/kgAdjB W) Dora Tse RD, LD #[id number] signed by Dora Tse RD at 013 [...] Provider: none Home Health/Infusion Agency: N/A Insurance/Funding: @[email or web address]@, [facility], [facility] Services Assessment: 51 yr old female with hx Gallbladder Ca, admitted for 04/28 liver wedge resectio n. Pt now on 13K, epidural off, diet advancing to full liquid, lópez out, bowel fx starting to return. Pt from [place], appears to have supportive family. Case mgt to follow for dc planning including possible Lovinox. Plan for dc Tue, , this week. [place]na [place] [phone] Anticipated Discharge Needs: Anticipated Discharge Disposition: home [...] day 3 Brief Hospital Course: Maria Elena Corbni is a 51 year old female with [...] with assist TID. Lala Mahajan DPT Pager [phone] lan of [facility] - Tevin Adame RN [...] wedge resection IV Access: right Forearm IVF: [id number]@ 75 Drains/Tubes: Hydromorphone Epidural 13mL cont. 3mL [...] wedge resection IV Access: right Forarm IVF: D5.74an34T@ 75 Drains/Tubes: Hydromorphone Epidural 12 cont. 3Q [...] mobility without assistive device; works at a [employer] Patient / Family Goal: Get well, return to home. 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 Vital signs: [...] Additional pain medication information: Functional Epidural: Yes BLUEPRINT READER: N/A Respiratory: RR: 12 , O2 Sat: 100 %, O2 Delivery: Simple mask Breath Sounds: WDL KARI: LLL: RUL: RLL: MERNA No Comment: Cardiac: BP: 120/76 mmHg HR: 86 GI: Nausea/Vomiting Status: No Signs/Symptoms: Interventions: Assessment: Comments: : Last void: cath Contact Name: Juan Abarca (spouse) Contact Number: [phone] Family contacted: Yes Comment: Belongings: documented in [...] [facility] | [address] | [place] [address] | | | GAVIN, SAM | PARK [...] | + + + + + | [facility] | [address] | [place] [address] | | | SERVICES, CORE | NEAL [...] [facility] | [address] | [place] [address] | | | SERVICES, CORE | NEAL [...] [facility] | [address] | [place] [address] | | | SERVICES, CORE | PARK [...] | + + + + + | [facility] | [address] | [place] [address] | | | SERVICES, CORE | NEAL [...] [facility] | [address] | [place] [address] | | | SAM ALONSO | PARK [...] [facility] | [address] | [place] [address] | | | SERVICES, CORE | PARK [...] | + + + + + | [facility] | [address] | [place] [address] | | | SERVICES, CORE | PARK [...] | + + + + + | [facility] | [address] | [place] [address] | | | SERVICES, SAM | NEAL [...] [facility] | [address] | [place], [place] | | | DG [facility] | [address] | [address] | | | TESTS | | | [...] [facility] | [address] | [place] [address] | | | SERVICESSAM | [address] [...] - [facility] | [address] | [place], [place] | | | DG POINT OF CARE | [address] | [address] | | | TESTS | | | [...] + + + + + | [facility] | [address] | [place] [address] | | | SERVICES, CORE | NEAL [...] [facility] | [address] | [place] [address] | | | SERVICES, CORE | PARK [...] | + + + + + | [facility] | [address] | [place] [address] | | | SERVICES, CORE | NEAL [...] [facility] | [address] | [place], [place] | | | DG POINT OF CARE | [address] | [address] | | | TESTS | | | [...] KAN[facility]N | [address] | [place], [place] | | | JOHN CONTE OF [facility] | [facility] | [address] | | | TESTS | | | [...] [facility] | [address] | [place] [address] | | | SERVICES, CORE | PARK [...] | + + + + + | [facility] | [address] [facility] | [place] [address] | | | SERVICES, CORE | NEAL [...] [facility] | [address] | [place] [address] | | | SAM ALONSO | NEAL [...] | + + + + + | [employer] | [address] | [place] [address] | | | SERVICES, CORE | [address] | | | + + + + + OPERATION RECORD (04/29/2012 5:13 PM PDT) + + | Transcriptions | + + | Ruba Muhammad MD - 04/28/2012 10:30 PM PDT Date: | | 04/28/2012ttending Surgeon: Cornelia Stanton M.D.Turbine Measurements Engineer(s): | | VENKATA Mcclainreoperative Diagnosis(es):Gallbladder | [...] with an incidental finding of | | X1vaehwuqzacu adenocarcinoma at her recent laparoscopic cholecystectomy foracute | | cholecystitis. Her pathology was reviewed at [facility]. She underwent aCT scan, which | [...] for RSI | | was completed.Cornelia Stanton M.D.[facility] ([facility])Professor | | and Vice-Radiophone Operator of SurgeryThe Shahriar Nava Chair for Pancreatic Disease | | ResearchPancreatic/ HepatoBiliary and Foregut Working GroupsMail Code [id number] [facility] | | [place], [place]. [address]Czatb Fax (296) | | [phone]: [email or web address] Stanton M.D.Professor and Vice-Radiophone Operator of | | SurgeryThe Shahriar Nava Chair for Pancreatic Disease ResearchErlanger East Hospital | | [place] ([facility])Division of Gastrointestinal and General SurgeryJS / [id number] / | | [id number] / [id number] / T: 04/28/2012 | |with electrocautery. Biopsy [...] | | | |Cornelia Stanton M.D. | |[facility] ([facility]) | |Professor and Vice-Radiophone Operator of Surgery | |The [facility] Nava Chair for Pancreatic Disease Research | |Pancreatic/ HepatoBiliary and Foregut Working Groups | |Mail Code L223A | |[address] [place] [address] | |[place], [place]. [address] | | | | | |email: [email or web address] | | | | | |Cornelia Stanton M.D. | |Professor and Vice-Radiophone Operator of Surgery | |The [facility] Nava Chair for Pancreatic Disease Research | |[facility] ([facility]) | |Division of Gastrointestinal and General Surgery | | | |JS / HS | |[id number] / [id number] / [id number] / | | | | | + [...] | + + + + + | [facility] | [address] | [place] [address] | | | SERVICES, CORE | NEAL [...] [facility] | [address] | [place] [address] | | | SERVICES, CORE | PARK [...] [facility] | [address] | [place] [address] | | | SERVICES, CORE | PARK [...] [facility] | [address] | [place] [address] | | | SERVICES, CORE | [...] in | | | | | | [facility]. No | | | | | [...] | | + +---------+ + + | [facility] DEPARTMENT OF | | | [...] 3.2 | 2.4 - 4.7 mg/dL | [facility] | | | PLASMA | | | [...] | + + + + + | [facility] | [address] | [place] [address] | | | SERVICES, CORE | PARK [...] | + + + + + | [facility] | [address] | [place] [address] | | | SERVICES, CORE | NEAL [...] [facility] | [address] | [place] [address] | | | SERVICES, SAM | NEAL [...] | + + + + + | [facility] | [address] | [place] [address] | | | SERVICES, CORE | PARK [...] | + + + + + | [facility] | [address] | [place] [address] | | | SERVICES, CORE | NEAL [...] [facility] | [address] | [place], [place] | | | JOHN CONTE OF CARE | [address] | [address] | | | TESTS | | | [...] [facility] | [address] | [place], [place] | | | JOHN CONTE OF ARJUN | [facility] | [address] | | | TESTS | | | [...] [facility] | [address] | [place], [place] | | | DG POINT OF CARE | [address] | [address] | | | TESTS | | | [...] [facility] | [address] | [place], [place] | | | JOHN CONTE OF ARJUN | [facility] | [address] | | | TESTS | | | [...] KANNAN | [address] | [place], [place] | | | JOHN CONTE OF ARJUN | [address] | [address] | | | TESTS | | | [...] [facility] | [address] | [place], [place] | | | DG POINT OF [facility] | [address] | [address] | | | TESTS | | | [...] BRUNNER | [address] | [place], [place] | | | JOHN CONTE OF CARE | [facility] | [address] | | | TESTS | | | [...] | + + + + + | [facility] - [facility] | [address] | [place], [place] | | | DG [facility] | [address] | [address] | | | TESTS | | | [...] and | | | | | | Mxaime Sal[place], | | | | | | [...] bed. | | | | | | Bacteriologist Soil | | | | | | sections [...] vein. | | | | | | Bacteriologist Soil | | | | | | sections [...] | | | | | [id number], claims service representative | | | | | | [...] + + + + | [facility] | [address] | [place] [address] | | | PATHOLOGY | [address] [...]
--- OUTSIDE RECORDS SUMMARY | ~2019-10-19 | XMS | Encounter Summary ---
Demographics + + + | Address | [address] | | | [place] [address] | + + + | Home Phone [...] + | Poncho Oquendo | ECON | [address] | | | | | [place] | | | | | [address] | | + + + + + | Marta Upton | ECON | [place] | | | | | [address] | | + + + + + Care Team Providers + +------+ + | Care Computer Information Systems Professor Name | Role | Phone | [...] RICARDA LINDQUIST | | | | | [place] OFFICE | [address] | [address] | | | | | OUTPATIENT | Phone: | [place] | | | | | VISIT 25 | [phone] | [address] | | | | | MINUTES | Fax: | Phone: | | | | | | [phone] | [phone] | | | | | | | Fax: | | | | | | | [phone] | +--------+--------+ + + + + Encounter Details +--------+ + + + + | Date | Type | Department | Care Team | Description | +--------+ + + + + | 09/16/ | Hospital | [facility] | Reinaldo, | Gallbladder cancer, | | 2015 | Encounter | MED CTR MEDICAL | Chad Soler MD 2802 | carcinoma (HCC) | | | | ONCOLOGY CLINIC 401 | [facility] | (Primary Dx) | | | | [address] | [address] [place], [place] | | | | | [place] [address] | [address] | | | | | [phone] | | | +--------+ + + + [...] nt from the original. Hematology/Oncology Progress Note [facility] Pt. Name/Age/: Aura Upton 53 y.o. 1960 Med. Record Number: [id number] Date of admission: 09/16/2014 Identifying Statement: Aura Upton is a 53 y.o. female from [address] [place] [address] with Recurrent Cholangiocarcinoma. The patient chart and [...] Brandon Garcia March 29, 2012, pathological specimen [id number], analyzed by Dr. Bowers of [facility] and was notable for a poorly-differentiated adenoc arcinoma of the gallbladder. Liver biopsy demonstrated mild portal inflammation. 2. On April 28, 2012, she successfully underwent an R0 resection by Dr. Tai Stanton at [facility], pathological specimen [id number] was notable for the absence of any residual carcinoma within the gallbladder bed. However, 2/8 regional lym ph nodes contained regionally metastatic disease. 3. Consultation by Dr. Elva Grey of the [facility] on May returned the recommendation for adjuvant chemoradiation therapy following [id number] as follows: Capecitabine at 750 mg/m sq [...] 7. Consultation with Dr. Elva Grey the [facility] in June 26, 2014 who recommended additional chemotherapy was cisplatin at 75 mg meter squared on day 1 a nd gemcitabine 1250 mg per meter squared on day one and day 8 of acute 21 day cycle for 6-8 cycles. A second opinion was obtained by Dr. Richie Thayer of the [facility] iance who returned the recommendation [...] the recommendations of Dr. Richie Thayerof the [facility] [place] with gemcitabine at 1000 mg per meter squared on day one and day 8 wi th cisplatin 25 mg meter squared on day one and day 8 of a Q 21 day cycle beginning on July 26, 2014 complicated by grade 3 neutropenia and grade [address]. [address] scan of the chest, abdomen and pelvis that [facility] on September 16, 2014 demonstrated no [...] will return to see me at the [facility] in [place], [place] on September 20, 2014 for clinical [...] has been changed since signin Order [place] [place] dexamethasone (DECADRON) 4 mg tablet (Taking) Take one tablet PO as directed. Number of times this order has been changed since signin Order [facility] [place] docusate calcium (SURFAK) 240 mg capsule (Taking) Take 240 mg by mouth as needed. Number of times this order has been changed since signin Order [facility] [place] fish oil 1,000 mg capsule (Taking) Take 1,000 mg by mouth Daily. Number of times this order has been changed since signin Order [facility] [place] HYDROcodone-acetaminophen (VICODIN) 5-500 mg per tablet (Taking) Take 1 tablet by mouth e very 4 hours as needed. Number of times this order has been changed since signin Order [facility] [place] MULTIPLE VITAMIN PO (Taking) Take by mouth Daily. Number of times this order has been changed since signin Order [facility] [place] Probiotic Product (PROBIOTIC DAILY PO) (Taking) Take by mouth Daily. Number of times this order has been changed since signin Order [facility] [place] Allergy: Allergies Allergen Reactions Sulfa Antibiotics Objectives: [...] will return to see me at the [facility] in [place], [place] on September 20, 2014 for clinical [...] [address] | | | | | | [place] [address] | | | | | | [phone] | | | | | | | | +--------+---------+ + + + documented as of this encounter Visit Diagnoses + + | Diagnosis | + + | Gallbladder cancer, 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
--- OUTSIDE RECORDS SUMMARY | ~2019-10-19 | XMS | Encounter Summary ---
Demographics + + + | Address | [address] | | | [place] [address] | + + + | Home Phone [...] + | Poncho Oquendo | ECON | [address] | | | | | [place] | | | | | [address] | | + + + + + | Marta Upton | ECON | [place] | | | | | [address] | | + + + + + Care Team Providers + +------+ + | Care Grade Tamper Name | Role | Phone | + +------+ + | No, Physician | PCP | Unavailable | + +------+ + Encounter Details +--------+ + + + + | Date | Type | Department | Care Team | Description | +--------+ + + + + | 04/22/ | Preadmit | [facility] | | | | 2020 | Visit | REGIONAL SURGERY | | | | | | CENTER PREADMISSION | | | | | | [facility] | | | | | | [place] | | | | | | [address] | | | | | | [phone] | | | +--------+ + + + [...] | 2019 | Visit | | DO [address] [place] | | | | | | [place] [address] | | | | | | [phone] | | | | | | | | +--------+---------+ + + + documented as of this encounter Visit Diagnoses Not on filedocumented in this encounter
--- OUTSIDE RECORDS SUMMARY | ~2019-10-19 | XMS | Encounter Summary ---
Demographics + + + | Address | [address] | | | [place] [address] | + + + | Home Phone [...] + | Poncho Oquendo | ECON | [address] | | | | | [place] | | | | | [address] | | + + + + + | Marta Upton | ECON | [place] | | | | | [address] | | + + + + + Care Team Providers + +------+ + | Care Internal Communications Specialist Name | Role | Phone | + +------+ + PCP | Unavailable | + +------+ + Encounter Details +--------+ + + + + | Date | Type | Department | Care Team | Description | +--------+ + + + + | 07/15/ | Hospital | [facility] | Dale Taylor MD | | | 2011 | Encounter | MED CTR XRAY [address] | [address] | | | | | [place] | [address] [place], [place] | | | | | [place] [address] | [address] | | | | | [phone] | | | +--------+ + + + [...] | | | | | | [place] [address] | | | | | | [phone] | | | | | | | [...] Performed At | + + + | [facility] Diagnostic Imaging Department | [facility] | | [address], [facility] | [facility] | | MRI OF THE BRAIN [...] Transcribed Date/Time: 07/16/2011 12:57 | | | Hair Dryer: <Electronically Signed by Mathieu Brasher, | | | MD> 07/16/11 1437 | | + + + + + | Procedure Note | + + | Edmundo, Rad Conversion - 03/23/2013 5:27 PM [facility] | | Diagnostic Imaging Department [address] [place] [address] | | MRI OF THE BRAIN EXTENDED [...] Mathieu Field | | MD Anshu> 07/16/11 2527 | | | |The seventh and eighth [...] 12:45 | |Transcribed Date/Time: 07/16/2011 12:57 | |Hair Dryer: | |<Electronically Signed by Mathieu Brasher MD> [...]
--- OUTSIDE RECORDS SUMMARY | ~2019-10-19 | XMS | Encounter Summary ---
Demographics + + + | Address | [address] | | | [place] [address] | + + + | Home Phone [...] Team Providers + +------+ + | Care Recovery Analyst Name | Role | Phone | [...] + + | 06/28/ | Telephone | [facility] | Zully Soto RN | Refill Request | | 2014 | | [facility] | [place], [place] | | | | | [address] | [address] | | | | | [address] | | | | | | Pavilion, 7th [facility] | | | | | | [place], [place] | | | | | | [address] | | | | | | [phone] | | | +--------+ + + + [...] - 06/28/2014 5:37 PM PDTRoute to Adina video conference specialist onc RN. Residents cannot f ill outpatient narcotic prescriptions. Must go through Dr. Henderson. Thanks! Pavithra Aviles MD Obstetrics and Gynecology, PGY1 Pager #[phone] documented in this en counter Plan of Treatment Not on filedocumented as of this encounter Visit Diagnoses Not on filedocumented in this encounter"
--- OUTSIDE RECORDS SUMMARY | ~2019-10-19 | XMS | Encounter Summary ---
Demographics + + + | Address | [address] | | | [place] [address] | + + + | Home Phone [...] + | Poncho Oquendo | ECON | [address] | | | | | [place] | | | | | [address] | | + + + + + | Marta Upton | ECON | [place] | | | | | [address] | | + + + + + Care Team Providers + +------+ + | Care K9 Handler Name | Role | Phone | + +------+ + | No, Physician | PCP | Unavailable | + +------+ + Encounter Details +--------+ + + + + | Date | Type | Department | Care Team | Description | +--------+ + + + + | 04/26/ | Hospital | [facility] | Pedro Green, | | | 2019 | Encounter | REGIONAL SURGERY | DO [address] | | | | | CENTER INTRA OP | [place] [address] | | | | | [address] | [phone] | | | | | [place], [place] | | | | | | [address] | | | | | | [phone] | | | +--------+ + + + [...] | Visit | | DO [address] [facility] | | | | | | [place] [address] | | | | | | [phone] | | | | | | | [...]
--- OUTSIDE RECORDS SUMMARY | ~2019-10-19 | XMS | Encounter Summary ---
Demographics + + + | Address | [address] | | | [place] [address] | + + + | Home Phone [...] + | Poncho Oquendo | ECON | [address] | | | | | [place] | | | | | [address] | | + + + + + | Marta Upton | ECON | [place] | | | | | [address] | | + + + + + Care Team Providers + +------+ + | Care Soil Conservationist Name | Role | Phone | + [...] | | | | | [place] [address] | | | | | | [phone] | | | +--------+ + + + [...] [address] | | | | | | [place] [address] | | | | | | [phone] | | | | | | | | +--------+---------+ + + + documented as of this encounter Visit Diagnoses Not on filedocumented in this encounter"
--- OUTSIDE RECORDS SUMMARY | ~2019-10-19 | XMS | Encounter Summary ---
Demographics + + + | Address | [address] | | | [place] [address] | [...] Providers + +------+ + | Care Hair Designer Name | Role | Phone | [...] & | Diagnoses | [facility] | [facility] | | | | Gynecology | Complex | Epic Dept | [address] | | | | | Cystic Mass, | | [address] | | | | | elevated | | [place] | | | | | [address] per | | Pavilion, 7th | | | | | appt notes | | floor | | | | | | | [place], [place] | | | | | | | [address] | | | | | | | Phone: | | | | | | | [phone] | | | | | | | Fax: | | | | | | | [phone] | +--------+--------+ + + + + Encounter Details +--------+---------+ + + + | Date | Type | Department | Care Team | Description | +--------+---------+ + + + | 05/21/ | Office | [facility] | Miguel Seymour, | 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 Patient seen and discussed with Dr. Kandis [...] | + + + + + | [facility] - | [address] | [place] [address] | | | [place] | | | [...] # | | | | | | [id number]. Received 2 | | | | | [...] | + + + + + | [facility] | [address] | [place] [address] | | | PATHOLOGY | [address] [...]
--- OUTSIDE RECORDS SUMMARY | ~2019-10-19 | XMS | Encounter Summary ---
Demographics + + + | Address | [address] | | | [place] [address] | + + + | Home Phone [...] | Author | [facility] | | | and [place] | + + + | Organization | [facility] | | | and [place] | + + + | Address | Unknown | + + + | Phone | Unavailable | + + + Support + + + + + | Name | Relationship | Address | Phone | + + + + + | Poncho Oquendo | ECON | [address] | | | | | [place] | | | | | [address] | | + + + + + | Marta Upton | ECON | [place] | | | | | [address] | | + + + + + Care Team Providers + +------+ + | Care Sfdc Consultant Name | Role | Phone | + +------+ + | No, Physician | PCP | Unavailable | + +------+ + Reason for Visit + +--------+ + | Reason | Onset | Comments | | | Date | | + +--------+ + | Missing Paperwork | 02/12/ | notes on MyChart | | | 2019 | | + +--------+ + | Other | 02/12/ | Return pt call | | | 2019 | | + +--------+ + Encounter Details +--------+ + + + + | Date | Type | Department | Care Team | Description | +--------+ + + + + | 02/12/ | Telephone | [facility] | Pedro Green, | Missing Paperwork | | 2018 | | UROLOGY [address] | DO [address] | (notes on MyChart); | | | | [address] | [place] [address] | Other (Return pt | | | | [place], [place] | [phone] | call ) | | | | [address] | | | | | | [phone] | | | +--------+ + + + [...] this encounter Miscellaneous Notes Telephone Encounter - Bushra Wooten I, Carboy Filler - 02/12/2019 1:49 PM Remy rn pt call damon full name and . Pt stated she can not see her clinical and operative s ummary on her My chart. I stated pt woul;d not have access to that much details on my chart and she would need to call medical records to request the documentation she is wanting. Pt w as not happy and stated at [facility] she can see everything and maybe it is time to trans humberto I apologizedpt stated thank you. elephone Encounter - Lindsey Lux - 02/12/2019 11:42 A M Lexis, is calling regarding Missing Paperwork (notes on [employer]) and would like a call back. Additional Call Details: Patient requests a call back, regarding notes not being uploaded to [facility] or being forwarded to her oncologist. Mobile number If this is a symptom based call, was patient offered triage? Not Applicable If this is a symptom based call and you were unable to immediately transfer the call to a jaclyn maradiaga coke crusher operator was caller made aware that if [...] [address] | | | | | | [place] [address] | | | | | | [phone] | | | | | | | | +--------+---------+ + + + documented as of this encounter Visit Diagnoses Not on filedocumented in this encounter"
--- OUTSIDE RECORDS SUMMARY | ~2019-10-19 | XMS | Encounter Summary ---
Demographics + + + | Address | [address] | | | [place] [address] | + + + | Home Phone [...] + | Poncho Oquendo | ECON | [address] | | | | | [place] | | | | | [address] | | + + + + + | Marta Upton | ECON | [place] | | | | | [address] | | + + + + + Care Team Providers + +------+ + | Care Investigation Division Captain Name | Role | Phone | + +------+ + | Valeriy Carmona DO | TAWNYA | | + +------+ + Encounter Details +--------+ + + + + | Date | Type | Department | Care Team | Description | +--------+ + + + + | 03/05/ | Hospital | [facility] | Reinaldo, | Mass of breast, | | 2017 | Encounter | MED CTR ULTRASOUND | Epifanio Soler MD [address] | right | | | | [address] [place] | [address] [facility] | | | | | [place], [place] | [address] [place], [place] | | | | | [address] | [address] | | | | | [phone] | | | | | | | [...] THOMASTAI | | | | | | [place] [address] | | | | | | [phone] | | | | | | | [...] BREAST LIMITED RIGHT 03/05/2016 1:00 PM EXAM: [facility] | [facility] | [...]
--- OUTSIDE RECORDS SUMMARY | ~2019-10-19 | XMS | Encounter Summary ---
Demographics + + + | Address | [address] | | | [place] [address] | + + + | Home Phone [...] Providers + +------+ + | Care Shot Packer Name | Role | Phone | [...] + + | 06/24/ | Telephone | [facility] | Tai Stanton, | Scheduling; | | 2014 | | Center at [facility] [address] | [address] | Returning Phone Call | | | | [address] [facility] | [facility] | | | | | [facility] and | [place], [place] | | | | | [place] [address] | [address] | | | | | [place], [place] | [phone] | | | | | [address] | | | | | | [phone] | | | +--------+ + + + [...] and save her the long drive to [place]. Aura was displeased upon hearing this and [...]
--- OUTSIDE RECORDS SUMMARY | ~2019-10-19 | XMS | Encounter Summary ---
Demographics + + + | Address | [address] | | | [place] [address] | + + + | Home Phone [...] Providers + +------+ + | Care Drum Handler Name | Role | Phone | [...] & | Diagnoses | [facility] | [facility] | | | | Gynecology | Complex | Epic Dept | [address] | | | | | Cystic Mass, | | [address] | | | | | elevated | | [place] | | | | | [address] per | | Alexis, 7th | | | | | appt notes | | floor | | | | | | | [place], [place] | | | | | | | [address] | | | | | | | Phone: | | | | | | | [phone] | | | | | | | Fax: | | | | | | | [phone] | +--------+--------+ + + + + Encounter Details +--------+---------+ + + + | Date | Type | Department | Care Team | Description | +--------+---------+ + + + | 06/18/ | Office | [facility] | Miguel Seymour, | 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 | [facility] | [address] | (HCC) (Primary Dx) | | | | [address] | [facility] | | | | | [address] | [place], [place] | | | | | Alexis, [facility] floor | [address] | | | | | [place], [place] | [phone] | | | | | [address] | | | | | | [phone] | | | +--------+---------+ + + + [...] RN - 06/18/2014 10:51 AM PDTPlease call [facility] scheduling to set up a post op follow up in 5-6 weeks for a pelvic exam. [phone], ok to coordinat e with an apt with or Romy (ok if it is longer than 6 weeks) if you like. documented in this encounter Progress Notes Pavithra Aviles MD - 06/18/2014 10:34 AM PDTFormatting of this note might be different fro m the original. ENROLLMENT PROCESSOR ONCOLOGY CONSULTATION Aura Upton 06/18/2014 PCP: SANDY [...] History Narrative Pt has SO. Lives in [facility]. 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 [...] clean, dry, and intact - well healed. Williams removed. Steristrips placed. STUDIES REVIEWED Final Pathologic Diagnosis: 05/21/2014 Endometrium, biopsies: - Polypoid endocervical transformation zone mucosa - Fragments of endometrial stroma - Nega tive for hyperplasia, dysplasia or malignancy CA-125 on 05/21/2014: 225 Pathology (06/06/14): A: Pelvic washings, sent to Cytology: - Please see corresponding [id number] B: Left ovary and fallopian tube, salpingo-oophorectomy: [...] excised lymph nodes from the gallbladder bed ([id number], s cassandraes E3-4). Additionally, immunohistochemical staining on [...] Aviles MD Obstetrics and Gynecology, PGY1 Pager #[phone] I saw and evaluated the patient. I [...]
--- OUTSIDE RECORDS SUMMARY | ~2019-10-19 | XMS | Encounter Summary ---
Demographics + + + | Address | [address] | | | [place] [address] | + + + | Home Phone [...] + | Poncho Oquendo | ECON | [address] | | | | | [place] | | | | | [address] | | + + + + + | Marta Upton | ECON | [place] | | | | | [address] | | + + + + + Care Team Providers + +------+ + | Care Head Well Puller Name | Role | Phone | [...] neoplasm of | Epifanio Soler, | [address]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 | MD [address] | [place], | | | | | (HCC) | [address] | [place] [address] | | | | | Procedures | [address] | Phone: | | | | | AL INJ | [place], | [phone] | | | | | [address] | [place] [address] | Fax: | | | | | B, [address] [place] | Phone: | [phone] | | | | | NORMAL | [phone] | | | | | | SALINE | Fax: | | | | | | SOLUTION | [phone] | | | | | | INFUS, [...] + + | 02/02/ | Hospital | [facility] | Reinaldo, | Gallbladder cancer, | | 2017 | Encounter | MED CTR CHEMO | Epifanio Soler MD [address] | carcinoma (HCC) | | | | INFUSION [address] | | | | | [address] [place], | [address] [place], [place] | | | | | [place] [address] | [address] | | | | | [phone] | | | +--------+ + + + [...] [address] | | | | | | [place] [address] | | | | | | [phone] | | | | | | | [...] the | | | | PST | ([facility]) | results section. | + +--------+ + + + | LACTATE | STAT | 02/02/2017 | Gallbladder | Results for this | | DEHYDROGENASE | | 12:30 PM | cancer, carcinoma | procedure are in the | | | | PST | ([facility]) | results section. | + +--------+ + + + | COMPREHENSIVE | STAT | 02/02/2017 | Gallbladder | Results for this | | METABOLIC PANEL | | 12:30 PM | cancer, carcinoma | procedure are in the | | | | PST | ([facility]) | results section. | + +--------+ [...] + + | Performed at: 01 - [place] [address], | REFERENCE LAB | | [place], [place] [id number] Director Product Management: Ad Larose MD, Phone: | [facility] | | [phone] | | + + + + + + + + | Performing | Address | City/State/Zipcode | Phone Number | | Organization | | | | + + + + + | REFERENCE LAB | [address] | [place], [place] | [phone] | | [facility] [place] | [facility] | [address] | | + + + + + [...] + | [facility] | [address] | [place] | [phone] | | [facility] | | [address] | | | - LABORATORY | | [...] + | [facility] | [address] | [place] | [phone] | | [facility] | | [address] | | | - LABORATORY | | [...] non- | GLOMERULAR FILTRATION | mL/min/1.73m2 | [facility] | | | [place]er | RATE,ESTIMATED | | MEDICAL | | | | mL/min/1.37e1Tkzb than | | CENTER - | | [...] + | [facility] | [address] | [place] | [phone] | | [facility] | | [address] | | | - LABORATORY | | [...] + | [facility] | [address] | [place] | [phone] | | [facility] | | [address] | | | - LABORATORY | | [...] ST. | [address] | [place] | [phone] | | [facility] | | [address] | | | - LABORATORY | | [...]
--- OUTSIDE RECORDS SUMMARY | ~2019-10-19 | XMS | Encounter Summary ---
Demographics + + + | Address | [address] | | | [place] [address] | + + + | Home Phone [...] + | Poncho Oquendo | ECON | [address] | | | | | [place] | | | | | [address] | | + + + + + | Marta Upton | ECON | [place] | | | | | [address] | | + + + + + Care Team Providers + +------+ + | Care Watch Guard Gate Name | Role | Phone | + [...] MED CTR PROVIDER | Epifanio Soler MD [address] | carcinoma (HCC) | | | | ONCOLOGY [address] | RIC[facility] | | | | | W[place], | [address] | | | | | [place] [address] | [address] | | | | | [phone] | | | +--------+ + + + [...] | | | | | [place] [address] | | | | | | [phone] | | | | | | | | +--------+---------+ + + + documented as of this encounter Visit Diagnoses + + | Diagnosis | + + | Gallbladder cancer, carcinoma (HCC) Malignant neoplasm of gallbladder | + + documented in this encounter"
--- OUTSIDE RECORDS SUMMARY | ~2019-10-19 | XMS | Encounter Summary ---
Demographics + + + | Address | [address] | | | [place] [address] | + + + | Home Phone [...] Author | [facility] | | | and [place] | + + + | Organization | [facility] | | | and [place] | + + + | Address | Unknown | + + + | Phone | Unavailable | + + + Support + + + + + | Name | Relationship | Address | Phone | + + + + + | Poncho Oquendo | ECON | [address] | | | | | [place] | | | | | [address] | | + + + + + | Marta Upton | ECON | [place] | | | | | [address] | | + + + + + Care Team Providers + +------+ + | Care Meat Hanger Name | Role | Phone | [...] + + | 05/24/ | Telephone | [facility] | Reinaldo, | Other | | 2017 | | MED CTR RADIATION | Epifanio Soler MD 4465 | | | | | ONCOLOGY CLINIC 401 | [facility] | | | | | [address] | [address] [place] [address] | | | | | [place] [address] | [address] | | | | | [phone] | | | +--------+ + + + [...] PDTDr. Najera: Please call Latoya alva @ [phone]. She is the hospitalist at [facility]. documented in this encounter Plan of Treatment +--------+---------+ + + + | Date | Type | Specialty | Care Team | Description | +--------+---------+ + + + | 10/29/ | Office | Urology | Pedro Green, | | | 2019 | Visit | | DO Vaishali [address] | | | | | | [place] [address] | | | | | | [phone] | | | | | | | | +--------+---------+ + + + documented as of this encounter Visit Diagnoses Not on filedocumented in this encounter"
--- OUTSIDE RECORDS SUMMARY | ~2019-10-19 | XMS | Encounter Summary ---
Demographics + + + | Address | [address] | | | [place] [address] | + + + | Home Phone [...] | [facility] [place] | | | and [place] | + + + | Organization | [facility] | | | and [place] | + + + | Address | Unknown | + + + | Phone | Unavailable | + + + Support + + + + + | Name | Relationship | Address | Phone | + + + + + | Poncho Oquendo | ECON | [address] | | | | | [place] | | | | | [address] | | + + + + + | Marta Upton | ECON | [place] | | | | | [address] | | + + + + + Care Team Providers + +------+ + | Care Answering Service Agent Name | Role | Phone [...] STREET | | | | | FROM [facility]- | [place], | [place], | | | | | LABS/PORT | [place] [address] | [place] [address] | | | | | 6 HOUR RX | Phone: | Phone: | | | | | Procedures | [phone] | [phone] | | | | | [facility] | Fax: | Fax: | | | | | FOLLOW UP | [phone] | [phone] | +--------+--------+ + + + + Encounter Details +--------+ + + + + | Date | Type | Department | Care Team | Description | +--------+ + + + + | 05/20/ | Hospital | [facility] | Vladimir Robles, | Gallbladder cancer, | | 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 | MED CTR MEDICAL | [address] | carcinoma (HCC) | | | | ONCOLOGY CLINIC [address] | [address] [place], | (Primary Dx); Liver | | | | [address] [place] | [place] [address] | metastases (HCC); | | | | [place] [address] | [phone] | Stage 3a chronic | | | | [phone] | | kidney disease; | | | [...] fr om the original. Hematology-Oncology Progress Note [facility] Pt. Name/Age/: Aura Upton 56 y.o. 1960 CSN: [id number] Date of service: 05/20/2017 Provider: Vladimir Robles [...] adjustment of her ch emotherapy, specifically the cis-[place] given her renal dysfunction. 1. Proceed with day 1, cycle 1 of dose adjusted cis-[place] and gemcitabine as ordered. 2. Increase OxyContin [...] nausea, has decided to t ry palliative cis-w[place]/gemcitabine again to which she has responded in the past. Ended up in the emergency room yesterday in [place] with nausea and vomiting, responded to ondan [...] and 6 hour treatment, labs done in [facility]. My chart: Medications: Current Outpatient Prescriptions [...] this chart may have been created with AdReady voice recognition software. Occasi onal wrong-word or [...] 2019 | Visit | | DO [address] | | | | | | [place] [address] | | | | | | [phone] | | | | | | | [...]
--- OUTSIDE RECORDS SUMMARY | ~2019-10-19 | XMS | Encounter Summary ---
Demographics + + + | Address | [address] | | | [place] [address] | + + + | Home Phone [...] + | Poncho Oquendo | ECON | [address] | | | | | [place] | | | | | [address] | | + + + + + | Marta Upton | ECON | [place] | | | | | [address] | | + + + + + Care Team Providers + +------+ + | Care Media Specialist Name | Role | Phone | + +------+ + | Valeriy Carmona DO | PCP | | + +------+ + Reason for Visit +--------+--------+ + | Reason | Onset | Comments | | | Date | | +--------+--------+ + | Other | 05/28/ | | | | 2016 | | +--------+--------+ + Encounter Details +--------+ + + + + | Date | Type | Department | Care Team | Description | +--------+ + + + + | 05/28/ | Telephone | [facility] | Reinaldo, | Other | | 2016 | | MED CTR MEDICAL | Epifanio Soler MD 3784 | | | | | ONCOLOGY CLINIC [facility] | [facility] | | | | | [address] | [address] [place], [place] | | | | | [place] [address] | [address] | | | | | [phone] | | | +--------+ + + + [...] this encounter Miscellaneous Notes Telephone Encounter - Debra Tran - 05/28/2016 1:28 PM PDTLibby: Tiarra from Dr. Najera's office in [place] called and wanted me to schedule an appointment for Samantha dangelo on 06/17/16. I scheduled it, does this look okay. Thanks. documented in this encounter Plan of Treatment +--------+---------+ + + + | Date | Type | Specialty | Care Team | Description | +--------+---------+ + + + | 10/29/ | Office | Urology | Pedro Green, | | | 2019 | Visit | | DO [address]ish[address] | | | | | | [place] [address] | | | | | | [phone] | | | | | | | | +--------+---------+ + + + documented as of this encounter Visit Diagnoses Not on filedocumented in this encounter"
--- OUTSIDE RECORDS SUMMARY | ~2019-10-19 | XMS | Encounter Summary ---
Demographics + + + | Address | [address] | | | [place] [address] | + + + | Home Phone [...] + | Poncho Oquendo | ECON | [address] | | | | | [place] | | | | | [address] | | + + + + + | Marta Corbin | ECON | [place] | | | | | [address] | | + + + + + Care Team Providers + +------+ + | Care Director Of Child Welfare Services Name | Role | Phone | [...] W | | | | | | [place] | | | | | | [place] [address] | | | | | | [phone] | | | +--------+ + + + [...] | | | | | [place] [address] | | | | | | [phone] | | | | | | | [...] Performed At | + + + | [facility] | [place] | | Department [address] [place] [address] | [facility] | | [ rep [address]] [ rep [facility] | | st zip] Signed | - IMAGING | | | | | Patient Name: AURA CORBIN Physician: | | | QUAC.01 : 1960 Age: 52 Sex: F Unit #: [id number] | | | Exam Date: 03/19/13 Location: [facility] | | | Report #: [id number] Page: | | | %(RAD)RES..mtdd.print.filter("pg") of %(RAD) | | | RES..mtdd.print.filter("tpg") | | | | | | Accession Number: [id number] | | | CT ABDOMEN WITH CONTRAST [...] | | | Transcribed Date/Time: 03/19/2013 18:25 Founding Partner: | | | <<Signature on File>> | | | Mathieu | | | Emir Brasher MD03/19/131940 <Electronically signed by Mathieu Field | | Roopa Brasher MD> Mathieu Brasher MD 03/19/13 1446 | | | Founding Partner: Backand Tcuszopbmtqaa88/03/14 1825 | | | Epifanio Najera MD | | + + + + + + + + | Performing | Address | City/State/Zipcode | Phone Number | | Organization | | | | + + + + + | [address] | [address] | [place] | [phone] | | [facility] | | [address] | | | - IMAGING | | | | + + + + + documented in this encounter Visit Diagnoses Not on filedocumented in this encounter
--- OUTSIDE RECORDS SUMMARY | ~2019-10-19 | XMS | Encounter Summary ---
Demographics + + + | Address | [address] | | | [place] [address] | + + + | Home Phone [...] + | Author | [facility] | | | and [place] | + + + | Organization | [facility] | | | and [place] | + + + | Address | Unknown | + + + | Phone | Unavailable | + + + Support + + + + + | Name | Relationship | Address | Phone | + + + + + | Poncho Omar Oquendo | ECON | [address] | | | | | [place] | | | | | [address] | | + + + + + | Marta Upton | ECON | [place] | | | | | [address] | | + + + + + Care Team Providers + +------+ + | Care Mandarin Tutor Name | Role | Phone | [...] + + | 02/12/ | Telephone | [facility] | Pedro Green, | Follow-up | | 2019 | | UROLOGY [address] | DO [address] | | | | | [address] | [place] [address] | | | | | [place], [place] | [phone] | | | | | [address] | | | | | | [phone] | | | +--------+ + + + [...] transfer the call to a p ashwini policy change clerks supervisor was caller made aware that if at [...] Visit | | DO [address] [facility] | | | | | | [place] [address] | | | | | | [phone] | | | | | | | | +--------+---------+ + + + documented as of this encounter Visit Diagnoses Not on filedocumented in this encounter"
--- OUTSIDE RECORDS SUMMARY | ~2019-10-19 | XMS | Encounter Summary ---
Demographics + + + | Address | [address] | | | [place] [address] | + + + | Home Phone [...] Team Providers + +------+ + | Care Fleshing Machine Operator Name | Role | Phone [...] | neoplasm of | [address]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 | Francesco Surendra | [facility] | | | | | (HCC) | [address] | [address] | | | | | Procedures | [place] | [place] | | | | | CONSULT TO | [address] | [address] Phone: | | | | | HEMATOLOGY / | Phone: | [phone] | | | | | ONCOLOGY | [phone] | Fax: | | | | | PRACTICE | Fax: | [phone] | | | | | | [phone] | | +--------+--------+ + + + + Encounter Details +--------+---------+ + + + | Date | Type | Department | Care Team | Description | +--------+---------+ + + + | 06/26/ | Office | [facility] | Elva Grey, | 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 | Clinics at S | [address] | (HCC) (Primary Dx) | | | | [facility] [address] | [facility] [address] | | | | | [facility] | [place] [address] | | | | | Health and Healing, | [phone] | | | | | Building [address] | | | | | | [place], [place] | | | | | | [address] | | | | | | [phone] | | | +--------+---------+ + + + [...] negative for malignancy - Adjuvant chemotherapy recommended: Russell/Cap for 4 cycles then restaging - 09/13/12-10/23/12 Chemoradiation with Cape - Treated locally by Dr Najera - CT on 03/18/2014 which noted a left ovarian cyst measuring 5.5 x 5.8 x 2.6 cm - Referred to Dr Henderson in [facility] On[facility] - 06/07/14 To [place] for Exploratory [...] excised lymph nodes from the gallbladder bed ([id number], slides E3-4). Additionally, immunohistochemical staining on the [...] of benefit - recommend 1st line chemotherapy, Russell/Cisplatin would be standard, no clinical trials open at [facility] for 1st line therapy, and would not [...]
--- OUTSIDE RECORDS SUMMARY | ~2019-10-19 | XMS | Encounter Summary ---
Demographics + + + | Address | [address] | | | [place] [address] | + + + | Home Phone [...] Providers + +------+ + | Care Alarm Investigator Name | Role | Phone | + +------+ + | Tomasa Wagner | PCP | | + +------+ + Reason for Visit + + + | Reason | Comments | + + + | Medical Records | [facility] - OUTSIDE RECORDS 06/24/14 Bookmarked Document (notes, labs, | | Review | imaging) | + + + Encounter Details +--------+ + + + + | Date | Type | Department | Care Team | Description | +--------+ + + + + | 06/25/ | Abstract | Dig[facility]ive Health | Tai Stanton, | Medical Records | | 2015 | | Center at [facility] [address] | [address] [facility] | Review ([facility] - | | | | [facility] | [facility] | OUTSIDE RECORDS | | | | for Health and | [place], [place] | 06/24/14 Bookmarked | | | | [facility] | [address] | Document (notes, | | | | [place], [place] | [phone] | labs, imaging)) | | | | [address] | | | | | | [phone] | | | +--------+ + + + [...]
--- OUTSIDE RECORDS SUMMARY | ~2019-10-19 | XMS | Encounter Summary ---
Demographics + + + | Address | [address] | | | [place] [address] | + + + | Home Phone [...] Providers + +------+ + | Care Groover Operator Name | Role | Phone | + +------+ + | Valeriy Carmona MD | PCP | | + +------+ + Encounter Details +--------+ + + + + | Date | Type | Department | Care Team | Description | +--------+ + + + + | 12/23/ | Outside | UNKNOWN DEPARTMENT | Other, Faculty | | | 2018 | Records | [address] [facility] | [phone] | | | | | [address] | | | | | | [place], [place] | | | | | | [address] | | | +--------+ + + + [...]
--- OUTSIDE RECORDS SUMMARY | ~2019-10-19 | XMS | Clinical Summary ---
Demographics + + + | Address | [address] | | | [place] [address] | + + + | Home Phone [...] Team Providers + +------+ + | Care Desulfurizer Operator Name | Role | Phone | + +------+ + | Valeriy Carmona MD | PCP | | + +------+ + Source Comments GWEN is fully live on both EpicCare Ambulatory and EpicCare InPatient.[facility] Allergies + + + [...] Ragland at . | | Babak in [place]. -04/26/2012: R0 Resection. | | -05/31/2012-09/03/2012 Chemotherapy: [...] [place] | BLUE | [email or web address] | 02/14/19 | [phone] | [address] | PPO | | | CROSS | | 16-Pre | 8 | [address] | | | | [place] | | sent | | [place], | | | | [place] | | | | [place] [address] | | + +--------+ +--------+ + +--------+ | [facility] | [facility] | [id number] | 02/14/19 | | | Agency | [...] Person | Self | [birth year] | [address] | | | al/Fam | | 1960 | [phone] | [place] | | | jose alejandro | | | 5 (Home) | [address] | + +--------+ +--------+ + + | Aura Upton | Agency | Self | [birth year] | | [address] | | | | | 1960 | [phone] | [place] | | | | | | 5 (Home) | [address] | + +--------+ +--------+ + + Advance Directives + + + + + | Type | Date Recorded | Patient | Explanation | | | | 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
--- OUTSIDE RECORDS SUMMARY | ~2019-10-19 | XMS | Encounter Summary ---
Demographics + + + | Address | [address] | | | [place] [address] | + + + | Home Phone [...] [place] | | | | | [address] | | + + + + + | Marta Upton | ECON | [place] | | | | | [address] | | + + + + + Care Team Providers + +------+ + | Care First Assist Name | Role | Phone | + [...] + + | 08/07/ | Telephone | [facility] | Reinaldo, | Other | | 2014 | | MED CTR MEDICAL | Epifanio Soler MD [address] | | | | | ONCOLOGY CLINIC [facility] | [facility] | | | | | [address] | [address] [place], [place] | | | | | [place] [address] | [address] | | | | | [phone] | | | +--------+ + + + [...] the letter be faxed to her at [phone].Electronically sig yenny by Waleska Morrissey RN at [...] 2013. Can you please call her at [phone].Electronically signed by Tila Baca at 07/16 9:11 [...] BOYS | | | | | | [place] [address] | | | | | | [phone] | | | | | | | | +--------+---------+ + + + documented as of this encounter Visit Diagnoses Not on filedocumented in this encounter"
--- OUTSIDE RECORDS SUMMARY | ~2019-10-19 | XMS | Encounter Summary ---
Demographics + + + | Address | [address] | | | [place] [address] | + + + | Home Phone [...] Team Providers + +------+ + | Care Leading Firefighter Name | Role | Phone | + +------+ + | Tomasa Wagner | PCP | | + +------+ + Encounter Details +--------+ + + + + | Date | Type | Department | Care Team | Description | +--------+ + + + + | 09/13/ | Abstract | Digestive Health | Tai Stanton, | | | 2012 | | Center at [facility] [address] | [address] [facility] | | | | | [facility] | [facility] | | | | | for Health and | [place], [place] | | | | | [facility], [place] [address] | [address] | | | | | [place], [place] | [phone] | | | | | [address] | | | | | | [phone] | | | +--------+ + + + [...]
--- OUTSIDE RECORDS SUMMARY | ~2019-10-19 | XMS | Encounter Summary ---
Demographics + + + | Address | [address] | | | [place] [address] | + + + | Home Phone [...] + | Poncho Oquendo | ECON | [address] | | | | | [place] | | | | | [address] | | + + + + + | Marta Upton | ECON | [place] | | | | | [address] | | + + + + + Care Team Providers + +------+ + | Care Kindergarten Teacher Name | Role | Phone | [...] + + | 05/28/ | Telephone | [facility] | Reinaldo, | Other | | 2016 | | MED CTR MEDICAL | Epifanio Soler MD [address] | | | | | ONCOLOGY CLINIC [facility] | [facility] | | | | | [address] | [address] [place], [place] | | | | | [place] [address] | [address] | | | | | [phone] | | | +--------+ + + + [...] PDTLibby: Tiarra from Dr. Najera's office in [place] called and wanted me to schedule an [...] [address] | | | | | | [place] [address] | | | | | | [phone] | | | | | | | | +--------+---------+ + + + documented as of this encounter Visit Diagnoses Not on filedocumented in this encounter"
--- OUTSIDE RECORDS SUMMARY | ~2019-10-19 | XMS | Encounter Summary ---
Demographics + + + | Address | [address] | | | [place] [address] | + + + | Home Phone [...] | Author | [facility] | | | and [place] | + + + | Organization | [facility] | | | and [place] | + + + | Address | Unknown | + + + | Phone | Unavailable | + + + Support + + + + + | Name | Relationship | Address | Phone | + + + + + | Poncho Oquendo | ECON | [address] | | | | | [place] | | | | | [address] | | + + + + + | Marta Upton | ECON | [place] | | | | | [address] | | + + + + + Care Team Providers + +------+ + | Care Retail Security Professional Name | Role | Phone | [...] | | | | | Procedures | [address] | [address] | | | | | [place] OFFICE | Phone: | [place] | | | | | OUTPATIENT | [phone] | [address] | | | | | VISIT 25 | Fax: | Phone: | | | | | MINUTES | [phone] | [phone] | | | | | | | Fax: | | | | | | | [phone] | +--------+--------+ + + + + Encounter Details +--------+ + + + + | Date | Type | Department | Care Team | Description | +--------+ + + + + | 10/31/ | Hospital | [facility] | Reinaldo, | Gallbladder cancer, | | 2015 | Encounter | [facility] | Chad Soler MD 2801 | carcinoma (HCC) | | | | ONCOLOGY CLINIC [address] | [facility] | (Primary Dx); | | | | [address] | [address] [place], [place] | Neoplasm related | | | | [place] [address] | [id number] | pain (acute) | | | | [phone] | | (chronic) | +--------+ + + [...] nt from the original. Hematology/Oncology Progress Note [facility] Pt. Name/Age/: Aura Upton 53 y.o. 1960 Med. Record Number: [id number] Date of admission: 10/31/2014 Identifying Statement: Aura Upton is a 53 y.o. female from [address] [place] [address] with Recurrent Cholangiocarcinoma. The patient chart and [...] Brandon Garcia March 29, 2012, pathological specimen [id number], analyzed by Dr. Bowers of [facility] and was notable for a poorly-differentiated adenoc arcinoma of the gallbladder. Liver biopsy demonstrated mild portal inflammation. 2. On April 28, 2012, she successfully underwent an R0 resection by Dr. Tai Stanton at [facility], pathological specimen [id number] was notable for the absence of any residual carcinoma within the gallbladder bed. However, 2/8 regional lym ph nodes contained regionally metastatic disease. 3. Consultation by Dr. Elva Grey of the [facility] on May returned the recommendation for adjuvant chemoradiation therapy following [id number] as follows: Capecitabine at 750 mg/m sq [...] 7. Consultation with Dr. Elva Grey the [facility] in June 26, 2014 who recommended additional chemotherapy was cisplatin at 75 mg meter squared on day 1 a nd gemcitabine 1250 mg per meter squared on day one and day 8 of acute 21 day cycle for 6-8 cycles. A second opinion was obtained by Dr. Richie Thayer of the [facility] iance who returned the recommendation [...] of Dr. Richie Thayerof the [facility] [place] with gemcitabine at 1000 mg per meter [...] anemia. Previous analysis at [facility] in [place] confirmed adeq uate iron stores. A request for HIGINIO therapy was denied by her insurance provider. Plan; Initiate Cycle #5 Cis/gemcitabine for recurrent cholangiocarcioma. Treatment will be continued in [place] next week. Repeat imaging after Cycle#6 and if favorable, cross over to observation. Neoplasm related pain (acute) (chronic) Overview Pain due to recurrent cholangiocarcinoma. Current Assessment & Plan Patients with terminal and malignant pain will be exempt from the requirement for a writt en pain management agreement/narcotic contract. [[facility] Provider [place] ndbook [...] has been changed since signin [facility] [place] amitriptyline (ELAVIL) 10 mg tablet (Taking) Take 10 mg by mouth nightly. dexamethasone (DECADRON) 4 mg tablet (Taking) Take one tablet PO as directed. Number of times this order has been changed since signin [facility] [place] docusate calcium (SURFAK) 240 mg capsule (Taking) Take 240 mg by mouth as needed. Number of times this order has been changed since signin [facility] [place] fish oil 1,000 mg capsule (Taking) Take 1,000 mg by mouth Daily. Number of times this order has been changed since signin [facility] [place] HYDROcodone-acetaminophen (VICODIN) 5-500 mg per tablet (Taking) Take 1 tablet by mouth e very 4 hours as needed. Number of times this order has been changed since signin [facility] [place] MULTIPLE VITAMIN PO (Taking) Take by mouth Daily. Number of times this order has been changed since signin [facility] [place] ondansetron (ZOFRAN ODT) 8 mg disintegrating tablet (Taking) Take 8 mg by mouth every 8 h ours as needed for Nausea. Probiotic Product (PROBIOTIC DAILY PO) (Taking) Take by mouth Daily. Number of times this order has been changed since signin [facility] [place] Allergy: Allergies Allergen Reactions Sulfa Antibiotics Objectives: [...] therapy ( contact Gabrielle Bean RN at [facility] or [facility]). Begin procrit today. INFORMED CONSENT: The nature and character of the proposed treatment with Cisplatin and [place] citabine with HIGINIO therapy with Procrit and [...] days, on day 2,3,4 at [facility] [place]. Gabrielle has the order and has [...] this chart may have been created with picsell voice recognition software. Occasi onal wrong-word or [...] for a written pain management agreement/narcotic contract. [[facility] Provider Handbook of Operational Guidelines (2015), fourth edition, page 45]. ssessment & Pl an Note - Chad Riggins MD - 10/31/2014 7:15 PM PDTAssociated Problem(s): Gallblad jose cancer, carcinoma (HCC)Domo returned to clinic with her mother to initiate cycle #5 o f cisplatin/gemcitabine for recurrent cholangiocarcinoma. Aura's chief complaint is fatig ue, likely due to chemotherapy induced anemia. [facility] analysis at [facility] in [place] confirmed adequate iron stores. A request for HIGINIO therapy [facility]. Plan; Initiate Cycle #5 Cis/gemcitabine for recurrent cholangiocarcioma. Treatment will be continued in [place] next week. Repeat imaging after Cycle#6 and if favorable, cross over to observation. d ocumented in this encounter Plan of Treatment +--------+---------+ + + + | Date | Type | Specialty | Care Team | Description | +--------+---------+ + + + | 10/29/ | Office | Urology | Pedro Green, | | | 2019 | Visit | | DO [address] | | | | | | [place] [address] | | | | | | [phone] | | | | | | | | +--------+---------+ + + + documented as of this encounter Visit Diagnoses + + | Diagnosis | + + | Gallbladder cancer, carcinoma (HCC) - Primary Malignant neoplasm of gallbladder | + + | Neoplasm related pain (acute) (chronic) | + + documented in this encounter
--- OUTSIDE RECORDS SUMMARY | ~2019-10-19 | XMS | Encounter Summary ---
Demographics + + + | Address | [address] | | | [place] [address] | + + + | Home Phone [...] Team Providers + +------+ + | Care Ton Cylinder Inspector Name | Role | Phone | [...] 2012 | | Center at [facility] [address] | [address] | | | | | [facility] | [facility] | | | | | for Health and | [place], [place] | | | | | [facility], [place] [address] | [address] | | | | | [place], [place] | [phone] | | | | | [address] | | | | | | [phone] | | | +--------+ + + + [...]
--- OUTSIDE RECORDS SUMMARY | ~2019-10-19 | XMS | Encounter Summary ---
Demographics + + + | Address | [address] | | | [place] [address] | + + + | Home Phone [...] Team Providers + +------+ + | Care Cardiopulmonary Physical Therapist Name | Role | Phone | [...] Center at [facility] [address] | MD [address] [facility] | | | | | [facility] | [facility] | | | | | for [facility] and | [place], [place] | | | | | [facility] 2 | [address] | | | | | [place], [place] | [phone] | | | | | [address] | | | | | | [phone] | | | +--------+ + + + [...] is still worried about the outcome. TEL: [phone] elephone Encounter - Hermila Hahn - 10/02/2012 10:16 AM PDTPt left VM this morning wondering about the results of h er Ultrasound ordered by Dr. Stanton. Ultrasound report scanned into Media tab with 10/02/2012 date. Done at [facility] . Pt requesting a call back on her cell with results. documented in this encounter Plan of Treatment Not on filedocumented as of this encounter Visit Diagnoses Not on filedocumented in this encounter"
--- OUTSIDE RECORDS SUMMARY | ~2019-10-19 | XMS | Encounter Summary ---
Demographics + + + | Address | [address] | | | [place] [address] | + + + | Home Phone [...] Team Providers + +------+ + | Care Sinter Press Operator Name | Role | Phone [...] | Questionnaire | | | | Faria [facility] for | [place] [address] | | | | | Health and Healing, | [phone] | | | | | [facility] [address] | | | | | | [place], [place] | | | | | | [address] | | | | | | [phone] | | | +--------+ + + + [...]
--- OUTSIDE RECORDS SUMMARY | ~2019-10-19 | XMS | Encounter Summary ---
Demographics + + + | Address | [address] | | | [place] [address] | + + + | Home Phone [...] + | Poncho Oquendo | ECON | [address] | | | | | [place] | | | | | [address] | | + + + + + | Marta Upton | ECON | [place] | | | | | [address] | | + + + + + Care Team Providers + +------+ + | Care Diabetes Territory Manager Name | Role | Phone | [...] + + | 10/10/ | Telephone | [facility] | Reinaldo, | Lab Results | | 2017 | | MED CTR MEDICAL | Epifanio Soler MD [address] | | | | | ONCOLOGY CLINIC [address] | [facility] | | | | | [address] | [address] [place], [place] | | | | | [place] [address] | [address] | | | | | [phone] | | | +--------+ + + + [...] | | | | | [place] [address] | | | | | | [phone] | | | | | | | | +--------+---------+ + + + documented as of this encounter Visit Diagnoses Not on filedocumented in this encounter"
--- OUTSIDE RECORDS SUMMARY | ~2019-10-19 | XMS | Encounter Summary ---
Demographics + + + | Address | [address] | | | [place] [address] | + + + | Home Phone [...] Team Providers + +------+ + | Care Mobility Architect Manager Name | Role | Phone | [...] [place] | | | | | | [address] | | | | | | [phone] | | | +--------+ + + + [...] GWEN GARCIA | [address] | [place] [address] | | | SAM ALONSO | NEAL [...] [facility] | [address] [facility] [address] | [place] [address] | | | SERVICES, SAM | NEAL [...] | + + + + + | [facility] | [address] | [place] [address] | | | SERVICES, CORE | [address] | | | + + + + + documented in this encounter Visit Diagnoses Not on filedocumented in this encounter"
--- OUTSIDE RECORDS SUMMARY | ~2019-10-19 | XMS | Encounter Summary ---
Demographics + + + | Address | [address] | | | [place] [address] | + + + | Home Phone [...] Providers + +------+ + | Care Delivery Assistant Name | Role | Phone | [...] 2014 | | Clinics at S | [place], [place] | | | | | [facility] [address] | [address] | | | | | Faria [facility] for | | | | | | Health and Healing, | | | | | | Building [address] | | | | | | [place], [place] | | | | | | [address] | | | | | | [phone] | | | +--------+ + + + [...]
--- OUTSIDE RECORDS SUMMARY | ~2019-10-19 | XMS | Encounter Summary ---
Demographics + + + | Address | [address] | | | [place] [address] | + + + | Home Phone [...] + | Poncho Oquendo | ECON | [address] | | | | | [place] | | | | | [address] | | + + + + + | Marta Upton | ECON | [place] | | | | | [address] | | + + + + + Care Team Providers + +------+ + | Care Kitchen Work Supervisor Name | Role | Phone | [...] + + | 02/12/ | Telephone | [facility] | Pedro Green, | Missing Paperwork | | 2018 | | UROLOGY [address] | DO [address] | (notes on MyChart); | | | | [address] | [place] [address] | Other (Return pt | | | | [place], [place] | [phone] | call ) | | | | [address] | | | | | | [phone] | | | +--------+ + + + [...] Notes Telephone Encounter - Bushra Wooten I, Ec Teacher - 02/12/2019 1:49 PM Remy rn pt [...] as not happy and stated at [facility] she can see everything and maybe it is time to trans humberto I apologizedpt stated thank you. elephone Encounter - Lindsey Lux - 02/12/2019 11:42 A M Lexis, is calling regarding Missing Paperwork (notes on Mir Tesenhart) and would like a call back. Additional Call Details: Patient requests a call back, regarding notes not being uploaded to [employer] or being forwarded to her oncologist. Mobile number If this is a symptom based call, was patient offered triage? Not Applicable If this is a symptom based call and you were unable to immediately transfer the call to a jaclyn maradiaga chief operator synthesis was caller made aware that if at [...] [address] | | | | | | [place] [address] | | | | | | [phone] | | | | | | | | +--------+---------+ + + + documented as of this encounter Visit Diagnoses Not on filedocumented in this encounter"
--- OUTSIDE RECORDS SUMMARY | ~2019-10-19 | XMS | Encounter Summary ---
Demographics + + + | Address | [address] | | | [place] [address] | + + + | Home Phone [...] + | Poncho Oquendo | ECON | [address] | | | | | [place] | | | | | [address] | | + + + + + | Marta Upton | ECON | [place] | | | | | [address] | | + + + + + Care Team Providers + +------+ + | Care Sap Business Analyst Name | Role | Phone [...] (Primary Dx) | | | | [place], | | | | | | [place] [address] | | | | | | [phone] | | | +--------+ + + + [...] [address] | | | | | | [place] [address] | | | | | | [phone] | | | | | | | | +--------+---------+ + + + documented as of this encounter Visit Diagnoses + + | Diagnosis | + + | Gallbladder cancer, 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
[~2019-10-19 16:03] MED LIST changes: -[UNRECOGNIZED DRUG - OTHER] IV
--- OUTSIDE RECORDS SUMMARY | 2019-10-19 16:08 | XMS ---
PreManage Notification: MARIA ELENA CORBIN Security Stringed Instrument Tuner Events No recent Security Events currently on file CRITERIA MET - History of Sepsis Dx - PDMP CARE PROVIDERS MIMI SolerGILSON Internal Medicine: Medical Oncology Current CHAD PHONE: [phone] AHMET HOLLY Insurance Actuary Current PHONE: [phone] Name [facility] 06/07/2019-Current PHONE: [phone] Mela has no Care Guidelines for this patient. Care History Medical/Surgical 06/07/2019 [facility] - PATIENT IS A [facility] ELIGIBLE, \T\middot;\T\nbsp; PLEASE REFER PATIENT TO [facility] FOR NON EMERGENT MEDICAL NEEDS. \T\middot;\T\nbsp; [facility] CAN SEE PATIENTS SAME DAY FOR APTS IF PATIENT CALLS FIRST THING IN THE MORNING. 06/09/2017 [facility] HISTORY GALLBLADDER CANCER WITH METS. E.D. VISIT COUNT (12 MO.) [facility] NOTE: Visits indicate total known visits. ED/UCC VISIT TRACKING (12 MO.) 10/19/2019 16:05 [facility] Jose Wild [place] TYPE: Emergency COMPLAINT: - VOMITING, ABDOMINAL PAIN 07/09/2019 01:56 [facility] [place] TYPE: Emergency COMPLAINT: - ABD PAIN DIAGNOSES: - Allergy status to sulfonamides status - Gastroparesis - Personal history of nicotine dependence - Unspecified abdominal pain - Other skilled nursing (current) drug therapy - Malignant neoplasm of gallbladder - Allergy status to other antibiotic agents status 06/13/2019 11:15 [facility] [place] TYPE: Emergency COMPLAINT: - ABDOMINAL PAIN 06/06/2019 01:15 [facility] [place] TYPE: Emergency COMPLAINT: - ABDOMINAL PAIN/VOMITING DIAGNOSES: - Allergy status to sulfonamides status - Opioid dependence with withdrawal - Personal history of nicotine dependence - Generalized abdominal pain - Allergy status to other antibiotic agents status - Other skilled nursing (current) drug therapy 05/09/2019 16:29 [facility] [place] TYPE: Emergency COMPLAINT: - ABD PAIN INPATIENT VISIT TRACKING (12 MO.) 06/15/2019 17:07 [facility] [place] TYPE: Medical Surgical COMPLAINT: - COLITIS DIAGNOSES: - Intrahepatic bile duct carcinoma - Allergy status to other antibiotic agents status - Neoplasm related pain (acute) (chronic) - Gastroparesis - Unspecified severe protein-calorie malnutrition - alf (current) use of opiate analgesic - Allergy status to sulfonamides status - Personal history of nicotine dependence - Other skilled nursing (current) drug therapy - Ulcerative (chronic) pancolitis without complications - 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 - Enterocolitis due to Clostridium difficile, not specified as - Other disorders of phosphorus metabolism - Gastrostomy status - Contact with and (suspected) exposure to other viral communic - Body mass index (BMI) 22.0-22.9, adult [...] neoplasm of retroperitoneum and peritoneu - Other skilled nursing (current) drug therapy - Personal history of nicotine dependence - Personal history of nicotine dependence - alf (current) use of opiate analgesic - Anxiety disorder, unspecified - Opioid dependence, uncomplicated - Hormone replacement therapy - alf (current) use of opiate analgesic - Anxiety disorder, unspecified - 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
[2019-10-19] MEDS ORDERED: FENTANYL1 EAC3 TD (16:27)
[2019-10-19] MEDS ORDERED: DILAUDID8 MG PO (16:29)
[2019-10-20] MEDS ORDERED: [UNRECOGNIZED DRUG - OTHER] IV (16:45)
[2019-10-20] MEDS ORDERED: CARBOPLATIN150 MG IV (16:45)
--- NOTE | 2019-10-22 09:45 | OR ---
[facility] [address] [place], [place] [address] Signed DATE OF OPERATION: 10/21/2019 SURGEON: Keturah Savage MD PREOPERATIVE DIAGNOSES: 1. Systemic sepsis with fungemia, recent placement of right internal jugular central venous catheter. 2. Possible infected port device. POSTOPERATIVE DIAGNOSES: 1. Systemic sepsis with fungemia, recent placement of right internal jugular central venous catheter. 2. Possible infected port device. PROCEDURE: Explantation of right subclavian Bard port catheter device. ANESTHESIA: 1% lidocaine. INDICATION: This 58-year-old [place] woman has advanced metastatic disease and has had a Port-A-Cath in place through the right subclavian vein since 2017. She is doing home TPN infusions. She presented to the emergency room and was admitted on 10/19/2019 with systemic sepsis, neutropenia, thrombocytopenia, and anemia, possibly related to chemotherapy given on October 03. She has had progressive decline of her problem in central venous catheter as well as peripheral blood culture showed fungemia. Concern is maintained that the device may be the source of her fungal infection in the setting of neutropenia. I have discussed with Dr. Hassan, her physician, and left message for her , who is not currently available by phone on the advisability of placement of central venous catheter, which has been performed as well as explantation of Port-A-Cath device on the possibility this may represent the source of her sepsis. FINDINGS: With meticulous care, hemostasis was maintained. Her platelet count most recently was 46,000. The port device did not appear grossly infected nor did the catheter of the tip of it per se. Both the tip and the port device itself were sent for cultures. There were no complications with explantation. Electronically Signed By: KETURAH SAVAGE MD 10/22/19 0945 PATIENT NAME: MARIA ELENA OCRBIN OPERATIVE REPORT DATE OF : 62 REPORT #: [id number] PHYSICIAN: KETURAH SAVAGE MD PCP: [facility] REPORT IS CONFIDENTIAL AND NOT TO BE RELEASED WITHOUT AUTHORIZATION [facility] [address] [place], [place] [address] Signed DESCRIPTION OF PROCEDURE: In the intensive care unit in the supine position, the right chest area was prepared with a chlorhexidine solution and draped sterilely. A 1% lidocaine with epinephrine was injected locally. A transverse incision was made directly over the port device. Dissection was carried through the subcutaneous tissue and dermis sharply. The capsule of the port device was encountered and incised with a #15 blade and extended with scissors as necessary. The port was manipulated out of the pocket and carefully withdrawn fully. The tip of the catheter was cut off sterilely and sent for culture as was the port itself. The exit site of the catheter was hemostatic, but it was oversewn any way with 3-0 Vicryl. The wound was then closed in layers with interrupted 2-0 Vicryl and a running subcuticular 3-0 Vicryl for the skin. A gauze dressing was applied rather than Steri-Strips on this occasion. MD HILARIO Xavier/JE /[id number] cc: MD Latoya Alba MD Copies: CHAD RIGGINS MD, CYNTHIA MD ~ Electronically Signed By: KETURAH SAVAGE MD 10/22/19 0945 PATIENT NAME: MARIA ELENA CORBIN OPERATIVE REPORT DATE OF : 62 REPORT #: [id number] PHYSICIAN: KETURHA SAVAGE MD PCP: [facility] REPORT IS CONFIDENTIAL AND NOT TO BE RELEASED WITHOUT AUTHORIZATION
--- NOTE | 2019-10-22 09:45 | OR ---
[facility] [address] [place], [place] [address] Signed DATE OF OPERATION: 10/21/2019 SURGEON: Keturah Savage MD PREOPERATIVE DIAGNOSES: Pancytopenia, neutropenic sepsis with fungemia, need for central venous access, anticipating removal of Port-A-Cath device. POSTOPERATIVE DIAGNOSES: Pancytopenia, neutropenic sepsis with fungemia, need for central venous access, anticipating removal of Port-A-Cath device. PROCEDURE: Ultrasound-assisted right internal jugular central venous catheter placement (Arrow Triple-lumen Blue Tip catheter). ANESTHESIA: 1% lidocaine and 1 mg of Dilaudid intravenously administered. DESCRIPTION OF PROCEDURE: In the mild Trendelenburg position in the intensive care unit with a head was taped to the left and the right neck was prepared with a chlorhexidine solution and draped sterilely. A 1% lidocaine was injected over the right sternocleidomastoid muscle. We were mindful of the patient has a platelet count of approximately 43,000 currently following transfusion, previously 19,000. Using cautious Seldinger technique, the right sternocleidomastoid muscle was probed for the internal jugular vein, which was not forthcoming immediately. On that basis, a SonAlchemyAPIte ultrasound device was used with sterile technique as well to localize the artery and the vein in the neck. After a few attempts, ultimately the vein was encountered showing dark nonpulsatile blood. A flexible J-wire was passed down the vein. The site was incised with an #11 blade and dilated with a blue dilator and subsequently a previously inspected and irrigated Arrow Blue Tip Triple-Lumen catheter passed over the wire and the wire was removed. Aspiration showed dark nonpulsatile blood. A sample was taken for lab studies that were needed. The catheter was withdrawn a bit and the white collar device was applied and secured to the skin with the enclosed Pete needle and silk suture. An anti-infective disk and appropriate dressing was applied. A postprocedure chest x-ray is pending. The patient does have a small hematoma at the base of her neck on the right side, that is not expanding. Electronically Signed By: KETURAH SAVAGE MD 10/22/19 0945 PATIENT NAME: MARIA ELENA CORBIN OPERATIVE REPORT DATE OF : 62 REPORT #: [id number] PHYSICIAN: KETURAH SAVAGE MD PCP: [facility] REPORT IS CONFIDENTIAL AND NOT TO BE RELEASED WITHOUT AUTHORIZATION [address] [address] Signed Keturah Savage MD JM/MODL /[id number] cc: MD Latoya Alba MD Copies: CHAD RIGGINS MD, CYNTHIA MD ~ Electronically Signed By: KETURAH SAVAGE MD 10/22/19 0945 PATIENT NAME: MARIA ELENA CORBIN OPERATIVE REPORT DATE OF : 62 REPORT #: [id number] PHYSICIAN: KETURAH SAVAGE MD PCP: [facility] REPORT IS CONFIDENTIAL AND NOT TO BE RELEASED WITHOUT AUTHORIZATION
--- NOTE | 2019-10-22 09:45 | CONS ---
[facility] [address] [place], [place] [address] Signed DATE OF CONSULTATION: 10/21/2019 CONSULTING PHYSICIAN: Keturah Savage MD REQUESTING PHYSICIAN: Latoya Hassan MD PROBLEM: Fungemia sepsis, pancytopenia, long-standing right subclavian Port-A-Cath device for home TPN. HISTORY: This 58-year-old white woman, presented to the emergency room on October [address] Taylor. She has a longstanding history of metastatic gallbladder carcinoma, having undergone cholecystectomy by Dr. Garcia and ultimately right hepatic lobectomy, elsewhere. She has had recurrent disease and has had episodic recurrent small-bowel obstructions and is known to me from the past. Though not conventional, she pursued home TPN for a nutritional support and has had a right subclavian Port-A-Cath device in place for that purpose. She has exceeded all typical survival expectations for patients with similar burden of disease, which does include hepatic disease. She presented to the emergency room with complaints of abdominal pain, vomiting, diarrhea, and fever. She has be tested for C. difficile. She has no symptoms suggestive of COVID disease. She was admitted by Dr. Hassan with findings of neutropenia with white count of 2.3, thrombocytopenia with a platelet count of 34, and anemia with a hematocrit of 26.5. She last underwent palliative chemotherapy on October 03 under the direction of Dr. Riggins. Her admission lactic acid level was 0.8. Her chest x-ray was considered normal and a CT scan of the abdomen and pelvis performed showed no acute changes with no evidence of acute bowel obstruction and unchanged appearance generally speaking from prior CT scan. She was noted to have fever and a sepsis like picture. Temperature has been as high as 103 based on what I have read. Electronically Signed By: KETURAH SAVAGE MD 10/22/19 0945 PATIENT NAME: MARIA ELENA CORBIN CONSULTATION DATE OF : 62 REPORT #: [id number] PHYSICIAN: KETURAH SAVAGE MD PCP: [facility] REPORT IS CONFIDENTIAL AND NOT TO BE RELEASED WITHOUT AUTHORIZATION [facility] [address] [place], [place] [address] Signed During her hospitalization, she was noted to have dehydration,and has had progressive decline. She was transferred to the intensive care unit due to hypotension and dehydration, clinically not responding to volume resuscitation. She has had ongoing TPN in the home setting and the access needle catheter for the port device in the right side was changed. She was not noted to have local inflammation or tenderness of the port site. She has been advanced in her care to include pressor agents due to hypotension. Blood cultures were obtained peripherally and through the central venous catheter, which show a fungal pathogen as yet not completely identified. She was started on micafungin 100 mg IV daily. She was transfused with platelets as well. The patient stated previously (and recently) her intention to do anything possible to prolong her life. She was noted today to have decline in her mental status and given her thrombocytopenia, concern was maintained for possible intracerebral event. A CT scan of the head was performed, which was said to be negative for hemorrhage or stroke. Her lab studies today, show white count of only 1.0 with hematocrit of 25.7, platelets of 43,000 following transfusion. Her electrolytes are essentially normal. Her Magnesium was slightly low at 1.8 and chloride elevated at 110. PHYSICAL EXAMINATION: GENERAL: The patient responds to deep stimulation and appears to know me, but is not in her usual state by any means. She is delerious. VITAL SIGNS: Her current pulse is 113, blood pressure 101/65, on a Levophed infusion. NECK: Shows no thyromegaly or cervical adenopathy. There is a scar over the left pectoral area from prior Port-A-Cath, which shows no sign of abnormality. The right infraclavicular Port-A-Cath site has a needle in it. There is no sign of obvious cellulitis, but is mildly tender. She has no sign of arm edema. Trachea is midline. CHEST: Shows normal respiratory excursion without tachypnea. ABDOMEN: Soft and flat. Non tender. Gastrostomy tube noted EXTREMITIES: Show no clubbing, cyanosis, or edema. There are no petechiae that I see. LABORATORY STUDIES: Today, as previously noted, include a platelet count of 43,000, yesterday 18,000. Urinalysis shows specific gravity 1.056 on October 18 with 15 rbc's and 2 white cells. My review of her CT scan images shows no asymmetry of midline structures. No sign of intraparenchymal hemorrhage or mass effect of any sort. Sinuses appear to be clear. This was a limited view, however. Abdominal CT was reviewed showing some parenchymal lesions of the liver; the spleen appears normal. Bowel loops in the abdomen appeared to be nondistended. Chest x-ray looks entirely normal from October 18. The Electronically Signed By: KETURAH SAVAGE MD 10/22/19 0945 PATIENT NAME: MARIA ELENA CORBIN CONSULTATION DATE OF : 62 REPORT #: [id number] PHYSICIAN: KETURAH SAVAGE MD PCP: [facility] REPORT IS CONFIDENTIAL AND NOT TO BE RELEASED WITHOUT AUTHORIZATION [facility] [address] [place], [place] [address] Signed tip of the catheter is in the superior vena cava. ASSESSMENT: The patient has fungemia and pancytopenia in the setting of advanced metastatic cholangiocarcinoma, initially from gallbladder cancer. She has been maintained with home TPN due to incomplete non remediable sbo and has decompressive gastrostomy tube. The patient has always stated intention to do whatever is necessary to continue living. She has far exceeded the expectations of most (including myself) as to survival. This has been augmented by palliative chemotherapy as directed by DR Riggins. She now likely has chemotherapy-induced pancytopenia, additionally complicated by systemic fungal sepsis with fungemia documented on both peripheral and central venous catheter cultures. Antifungal agent micofungin has been initiated. It is unclear to what extent the implanted central venous catheter ( right sublavian bardport catheter) may play in this problem. It is a risk factor for sure. Consideration has been made for possible explantation of the central venous catheter device. Considering she has had home TPN for about 2 years through this device might be a strong consideration. She still needs central venous access for pressor agents and venous access however. Though there is some hazard, consideration will be made for placement of a right temporary central venous catheter via the internal jugular vein as well as bedside explantation of the port device itself. Since she is thrombocytopenic and is at some increased risk of bleeding, given the superficial position of the port device, local pressure and other measures may be all that is necessary to secure hemostasis in that regard. I will call her and discuss this with her as I have already reviewed with Dr. Hassan, who concurs. If in fact the port device is the source of her fungal sepsis, explantation will be essential to maximize chances of recovery. Keturah Savage MD JM/MODL /[id number] Electronically Signed By: KETURAH SAVAGE MD 10/22/19 0945 PATIENT NAME: MARIA ELENA CORBIN CONSULTATION DATE OF : 62 REPORT #: [id number] PHYSICIAN: KETURAH SAVAGE MD PCP: [facility] REPORT IS CONFIDENTIAL AND NOT TO BE RELEASED WITHOUT AUTHORIZATION [facility] [address] [facility] [place], [place] [address] Signed cc: MD Latoya Alba MD Copies: CHAD RIGGINS MD, CYNTHIA MD ~ Electronically Signed By: KETURAH SAVAGE MD 10/22/19 0945 PATIENT NAME: MARIA ELENA CORBIN CONSULTATION DATE OF : 62 REPORT #: [id number] PHYSICIAN: KETURAH SAVAGE MD PCP: [facility] REPORT IS CONFIDENTIAL AND NOT TO BE RELEASED WITHOUT AUTHORIZATION
--- NOTE | 2019-10-22 20:10 | PATH ---
[facility] [address] [facility] [place], [place] [address] Signed ORDERING PHYSICIAN: Bobby Celaya MD PATIENT NAME: MARIA ELENA CORBIN GENDER: F : 1960 SPECIMEN(S): MOLECULAR PATHOLOGY RESULTS: SARS-CoV-2 Not Detected ADDITIONAL NOTES.: The [place] Fusion SARS-CoV-2 Assay is a multiplex real-time PCR (RT-PCR) in vitro diagnostic test intended for the qualitative detection of RNA from SARS-CoV-2 from individuals who meet COVID-19 clinical and/or epidemiological criteria. In general, SARS-CoV-2 RNA can be detected during the acute phase of infection. Positive results indicate the presence of SARS-CoV-2 RNA. Clinical correlation with patient history and other diagnostic information is necessary to determine patient infection status. Positive results do not rule out bacterial infection or co-infection with other viruses. Negative results do not preclude SARS-CoV-2 infection and should not be used as the sole basis for patient management decisions. Negative results must be combined with other clinical observations, patient history, and epidemiological information. The [place] Fusion SARS-CoV-2 Assay is not yet approved or cleared by the [place] FDA. When there are no FDA-approved or cleared tests available, and other criteria are met, FDA can make tests available under an emergency access mechanism called an Emergency Use Authorization (EUA). The EUA for this test is supported by the District Court Justice of Health and Human Service's (HHS's) declaration that circumstances exist to justify the emergency use of in vitro diagnostics for the detection and/or diagnosis of the virus that causes COVID-19. This EUA will remain in effect for the duration of the COVID-19 declaration justifying emergency of IVDs, unless it is terminated or revoked by FDA, after which the test may no longer be used. The [place] Fusion SARS-CoV-2 Assay is for use only under EUA in US laboratories certified under the Clinical Laboratory Improvement Amendments of 1988 (CLIA) to perform high complexity tests. [facility] is certified under CLIA to perform high complexity PATIENT NAME: MARIA ELENA CORBIN PATHOLOGY DATE OF : 62 REPORT #: [id number] PHYSICIAN: DENICE GRANGER PCP: [facility] REPORT IS CONFIDENTIAL AND NOT TO BE RELEASED WITHOUT AUTHORIZATION [address] [address] Signed clinical laboratory testing. PERFORMING LABORATORY.: Molecular testing was performed by [facility] [address] [place], [place] [address] [address] (Solids Control Technician: [place] D.O.; CLIA#: [id number]) Diagnostician: System Interface Pathologist Electronically Signed 10/22/2019 Copies: ~ PATIENT NAME: MARIA ELENA CORBIN PATHOLOGY DATE OF : 62 REPORT #: [id number] PHYSICIAN: DENICE GRANGER PCP: [facility] REPORT IS CONFIDENTIAL AND NOT TO BE RELEASED WITHOUT AUTHORIZATION
== END 2019-10-23 21:00 | disposition short-term general hospital (02) | DRG 981 ==
LOC: ED 16:03 → MS 16:06 → CCU 10-20 12:15
PROVIDERS: ADMIT Internal Medicine; ATTEND Internal Medicine
PROC: 02HV33Z Insertion of Infusion Device into Superior Vena Cava, Percutaneous Approach (ICD-10-PCS; principal; 2019-10-21)
PROC: 3E043XZ Introduction of Vasopressor into Central Vein, Percutaneous Approach (ICD-10-PCS; 2019-10-21)
PROC: 0JPT0XZ Removal of Tunneled Vascular Access Device from Trunk Subcutaneous Tissue and Fascia, Open Approach (ICD-10-PCS; 2019-10-21)
PROC: 30233N1 Transfusion of Nonautologous Red Blood Cells into Peripheral Vein, Percutaneous Approach (ICD-10-PCS; 2019-10-22)
PROC: 0B9K30Z Drainage of Right Lung with Drainage Device, Percutaneous Approach (ICD-10-PCS; 2019-10-23)
PROC: 30233R1 Transfusion of Nonautologous Platelets into Peripheral Vein, Percutaneous Approach (ICD-10-PCS; 2019-10-23)
DX: T80.211A Bloodstream infection due to central venous catheter, initial encounter (principal); B37.7 Candidal sepsis; R65.21 Severe sepsis with septic shock; D61.810 Antineoplastic chemotherapy induced pancytopenia; I33.0 Acute and subacute infective endocarditis; G93.41 Metabolic encephalopathy; E43 Unspecified severe protein-calorie malnutrition; C23 Malignant neoplasm of gallbladder; C78.7 Secondary malignant neoplasm of liver and intrahepatic bile duct; N17.9 Acute kidney failure, unspecified; E87.2 Acidosis; E87.1 Hypo-osmolality and hyponatremia; J93.9 Pneumothorax, unspecified; Z20.828 Contact with and (suspected) exposure to other viral communicable diseases; T45.1X5A Adverse effect of antineoplastic and immunosuppressive drugs, initial encounter; E86.0 Dehydration; G89.3 Neoplasm related pain (acute) (chronic); E80.6 Other disorders of bilirubin metabolism; E83.42 Hypomagnesemia; E83.39 Other disorders of phosphorus metabolism; Z79.891 Long term (current) use of opiate analgesic; Z79.899 Other long term (current) drug therapy; Z93.1 Gastrostomy status; Z87.891 Personal history of nicotine dependence; Z88.8 Allergy status to other drugs, medicaments and biological substances; Z88.1 Allergy status to other antibiotic agents
CPT/HCPCS: 36415; 36430; 36556; 36600; 51702; 70450; 71045; 74177; 80048; 80053; 81001; 82140; 82803; 83605; 83735; 84100; 85025; 85610; 85651; 85730; 86644; 86850; 86900; 86901; 86920; 87040; 87077; 87088; 87106; 87186; 87324; 87449; 87493; 93306; 94660; 96365; 96366; 96367; 96374; 96375; 96376; 99285-25; C9113; C9803; G0378; J0131; J0692; J1170; J1447; J1450; J1885; J2248; J2405; J3010; J3370; J3475; J3480; J7030; J7040; J7050; J7060; J7070; J7121; P9035; P9037; P9040; Q9967; U0003